=== PATIENT | female | born 2000 | race Caucasian/White ===

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

== ENCOUNTER 2021-03-22 15:22 | Emergency (ER) | payer OTHER ==
[~2021-03-22 15:22] MED LIST changes: +ACET500T15 PO; -ACET50TAOT PO; +TOBR0.3S OP
[2021-03-22] MEDS ORDERED: ZOLO100T (15:35)
[2021-03-22] MEDS ORDERED: IBUP80TA (15:35)
[2021-03-22] MEDS ORDERED: DOCU100C16 (15:35)
[2021-03-22 18:46] LABS: BASO % 0.2 % (0.0-1.0); EOS # 0.1 10^3/uL (0.0-0.5); EOS % 0.6 % (0.0-3.0); HEMOGLOBIN 11.3 g/dl (12.0-15.5); LYMPH # 1.6 10^3/uL (1.5-5.0); LYMPH % 12.8 % (24.0-44.0); MEAN CORPUSCULAR HEMOGLOBIN 25.4 pg (27.0-33.0); MEAN CORPUSCULAR HGB CONC 31.4 g/dl (32.0-36.5); MEAN CORPUSCULAR VOLUME 80.9 fl (80.0-96.0); MONO # 0.6 10^3/uL (0.0-0.8); MONO % 4.9 % (2.0-8.0); NEUTROPHILS # 9.8 10^3/uL (1.5-8.5); NEUTROPHILS % 80.3 % (36.0-66.0); PLATELET COUNT, AUTOMATED 300 10^3/uL (150-450); RED BLOOD COUNT 4.45 10^6/uL (4.00-5.40); WHITE BLOOD COUNT 12.2 10^3/uL (4.0-10.0)
[2021-03-22 19:17] LABS: ALBUMIN 2.7 GM/DL (3.2-5.2); ALT/SGPT 16 U/L (12-78); BILIRUBIN,DIRECT < 0.1 MG/DL (0.0-0.2); BILIRUBIN,TOTAL 0.2 MG/DL (0.2-1.0); BLOOD UREA NITROGEN 6 MG/DL (7-18); CALCIUM LEVEL 8.9 MG/DL (8.5-10.1); CARBON DIOXIDE LEVEL 22 MEQ/L (21-32); CHLORIDE LEVEL 109 MEQ/L (98-107); CREATININE FOR GFR 0.53 MG/DL (0.55-1.30); GLOMERULAR FILTRATION RATE > 60.0 (>60); GLUCOSE, FASTING 93 MG/DL (70-100); POTASSIUM SERUM 4.1 MEQ/L (3.5-5.1); SODIUM LEVEL 140 MEQ/L (136-145); TOTAL PROTEIN 6.5 GM/DL (6.4-8.2)
[2021-03-22] MEDS ORDERED: NS 1,000 ML IV ONE (20:40)
[2021-03-22 21:40] LABS: CK-MB VALUE MASS < 1.0 NG/ML (<3.6); CPK CREATINE PHOSPHOKINASE 134 U/L (26-192); FREE T4 0.88 NG/DL (0.76-1.46); LIPASE 95 U/L (73-393); MB/CK RELATIVE INDEX 0.75 (< OR =4); TROPONIN I < 0.02 NG/ML (< 0.10)
--- NOTE | 2021-03-22 22:17 | REPVR ---
PROCEDURE INFORMATION: Exam: XR Chest Exam date and time: 03/22/21 (8:48pm) Age: 20 years old Clinical indication: Chest pain TECHNIQUE: Imaging protocol: Portable CXR Views: 1 view COMPARISON: Chest films of 08/26/17 FINDINGS: Lungs: Unremarkable. No consolidation. Pleural spaces: Unremarkable. No pleural effusions. No pneumothorax. Heart/Mediastinum: Unremarkable. No cardiomegaly. Bones/joints: Unremarkable. IMPRESSION: No acute findings. Lung smith remain clear. Electronically signed by: Latanya Ornelas On 03/22/2021 22:17:31 PM
[2021-03-22 23:37] VITALS: BP 112/61
--- NOTE | 2021-03-23 17:44 | ECGEPIP ---
[facility] - ED Test Date: 2021-03-22 Pat Name: GEORGIANA PICKARD Department: Room: - Gender: Female Chief Underwriter: vicky : 2000 Requested By: JAMES GARCÍA Order Number: [id number] Reading MD: Haile Rodríguez Measurements Intervals [place] Rate: 71 P: 28 VT: 130 QRS: 72 QRSD: 64 T: 32 QT: 396 QTc: 430 Interpretive Statements Normal sinus rhythm POOR R WAVE PROGRESSION SIMILAR TO 02/25/16 Electronically Signed on 03-23-2021 17:44:12 EDT by Haile Rodríguez
== END 2021-03-22 23:40 | disposition home or self-care (01) ==
LOC: M ED 15:22
DX: R69 Illness, unspecified (principal); O99.345 Other mental disorders complicating the puerperium; Z88.6 Allergy status to analgesic agent

== ENCOUNTER 2021-04-29 16:20 | Emergency (ER) | payer OTHER ==
[~2021-04-29] VITALS: Ht 167.6 cm; Wt 58.2 kg
[~2021-04-29 16:20] MED LIST changes: +DOCU100C16; +IBUP80TA; +ZOLO100T
[2021-04-29] MEDS ORDERED: VANC250C3 PO (16:30)
[2021-04-29] MEDS ORDERED: VIST25CA PO (16:30)
--- OUTSIDE RECORDS SUMMARY | 2021-04-29 16:33 | CCD ---
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 Name Role Phone Anderson GILL, Maya Duke PP [phone] Kimberly White DPM Unavailable Unavailable Reason for Referral No Reason for Referral Recorded Problems Includes: Active, inactive, and resolved Problems All Visits Onset Date - Time Resolved Date - Time Provider Co ndition Status Chest Pain 01/09/2021 - 10:00AM Maya Barron MD Active Generalized Anxiety Disorder 01/09/2021 - 10:00AM Laisha Barron MD Active History of Psychiatric Disorders 08/09/2020 - 12:00AM Cat Gutierrez RPA Active Note: Anxiety, panic attacks 06/23/2020 - 12:00AM Cat Gutierrez RPA Active Fracture of Fifth Cervical Vertebral Body 03/04/2018 - 12:00AM Cat Gutierrez RPA Active Note: Unchanged Reactive Airway Disease 03/04/2018 - 12:00AM Cat kimbrough RPA Active Plan of Treatment Pending Tests Order Diagnosis Results Due Ordering Provi yaima Outside Labs STC/C.Diff/O+P/Viral PCR G14 Diarrhea, unspecified 03/03 Maya Barron MD Future Appointments Date Time Location Provider Post Visit 05/01/2021 11:45AM [facility] ricky Beth Barron MD Findings Encounter Date Follow-up visit date 03/28/2021 Georgiana is aware she has an appointment with Dr. Barron at 2:45pm [facility] phone call- NO CHARGE with Maya Barron MD 2021 Transitional care management services with high comple xity decision making [facility] phone call- NO CHARGE with Maya Barron MD 2021 Community resources No referrals needed at this time [facility] - Office Visit with Maya Barron MD 10/17/2020 Follow-up visit date 10/17/2020 PCP adonis hussein and CCM visit (Dr. Barron and Esther Howell,RN) [facility] - Office Visit with Maya Barron MD 10/17/2020 Ordered a urine culture sick visit with Maya Barron MD 02/25/2020 Referred elsewhere for physical therapy service follow up with Maya Barron MD 02/01/2020 Tylenol for discomfort or fever. Push fluids and rest. Saline nasal spray to thin secretions and encourage drainage. Call if persistent or high fever, increased work of breathing, persistent pain, if sxs not improving, or if concerned urgent visit with Linda Smith RPA 08/07/2019 Referred elsewhere for physical therapy service ANNUAL PE-followup with Maya Barron MD 04/07/2019 Discussed treatment plan with the marifer ent. Exam findings consistent with muscle strain, no cardiovascular component, risk factors or concerning exam findings. Recommended moist heat, limiting aggravating activities and to monitor for now. See back with any worsening or persistent symptoms, questions or concerns sick visit with Cat Gutierrez RPA 10/30/2018 Assessments Includes: Assessments for all patient encounters Findings Encounter Date Gastroenteritis advised rest, PO hydrat ion, BRAT diet [Infectious gastroenteritis and colitis, unspecified] Telehealth communication with Maya Barron MD 04/13/2021 Generalized anxiety disorder counseling provided today. Will switch from sertraline to venlafaxine. Follow-up in 2 weeks. Phone conversation length: 8 minutes [Generalized anxiety disorder] Telehealth communication with Maya Barron MD 04/13/2021 Benign pituitary neoplasm incidentally found on brain MRI, 7mm. Will discuss with patient at next visit in 2 weeks [Benign neoplasm of pituitary gland] Transitional Care Management HIGH complexity with Maya Barron MD 03/28/2021 Maternal mental disorder complicating pr egnancy, childbirth,and puerperium which is improving some improvement on sertraline 50mg daily and with mother's support at home. >50% of encounter spent counseling today [Other mental disorders complicating the puerperium] Transitional Care Management HIGH complexity with Maya Barron MD 03/28/2021 Chest pain [facility] phone call- NO CHARGE with Maya Barron MD 2021 Fracture of fifth cervical vertebral body [facility] phone call- NO CHARGE with Maya Barron MD 2021 Generalized anxiety disorder [facility] phone call- NO RICKEY GE with Maya Barron MD 2021 History of psychiatric disorders [facility] phone call- NO CHARGE with Maya Barron MD 2021 Reactive airway disease [facility] phone call- NO CHARGE with Alicja Barron MD 2021 Chest pain patient has had multiple ER visits for this, no current symptoms, will continue to monitor [Chest pain, unspecified] Telehealth communication with Maya Barron MD 01/09/2021 Generalized anxiety disorder which is st able with panic attacks, continue sertraline, wellbutrin, hydroxyzine prn. Counseling provided today. Frequent ER visits. Has not followed through with [facility] or counseling [Generalized anxiety disorder] Telehealth communication with Maya Barron MD 12/13 Iron deficiency anemia which is stable on ferrous sulfate [Iron deficiency anemia, unspecified] Telehealth communication with Maya Barron MD 01/09/2021 Upper respiratory infection Advised res t, PO hydration, tylenol prn pain, cough drops to sooth burning with cough. Reassurance provided [Acute upper respiratory infection, unspecified] Telehealth communication with Myaa Barron MD 01/09/2021 Atypical chest pain Pt called 12/22/20 a t 11:15 pm for exascerbation of left shoulder, chest and scapular pain which has been a chronic issue for her with extensive work up and evaluation. She report worsening pain after intercourse earlier in the evening. Has been evaluated in the ER for syncope recently and has an appt this coming week in the office. No nausea,palpitions, or dyspnea. Feels fatigue about at baseline and continues to have SBP in the 90s. Will observe for now and she will seek medical attention for worseing sxs. She reports stress levels at baseline telephone conversation with Michel Villalba MD 12/25/2020 Fracture of fifth cervical vertebral body telephone co nversation with Maya Barron MD 12/19/2020 History of psychiatric disorders telephone conversatio n with Maya Barron MD 12/19/2020 Hypotension Called this evening to repo rt low BPs at home the last few days. Feels tired and SOB as she has in the past with no real changes. Was in ER yesterday with SBP 89. Today she has gotten a BP of 75 systolically. No severe CV pulmonary sxs. She will drink 3 glasses of water yet tonight and come in for a BP check tomorrow AM and she is to bring in her own cuff as well to correlate with ours telephone conversation with Michel Villalba MD 12/19/2020 Reactive airway disease telephone conversation with Maya Barron MD 12/19/2020 Tension-type headache , she tried tyleno l last night without relief. She has tired heat/ice on neck without relief. She is and is limited in what she can take. Refer to PT for evaluation/treatment of headaches. Stop amoxicillin, no signs/symptoms of sinusitis Problem visit - not contagious with Bandar Cleveland PA-C 12/14/2020 Fracture of fifth cervical vertebral body [facility] - Office Visit with Maya Barron MD 11/21/2020 History of psychiatric disorders [facility] - Of fice Visit with Maya Barron MD 11/21/2020 Reactive airway disease [facility] - Office Vi sit with Maya Barron MD 11/21/2020 Chest pain s/p echo, holter monitor, mu ltiple EKG's. Did not tolerate labetalol for rate control due to hypotension. No improvement in symptoms with hydroxyzine prn. Reports family history of "clogged arteries" and her dad has expressed concern multiple times that she needs to make sure her arteries aren't clogged. Reassurance provided today. Counseling provided today [Chest pain, unspecified] OB- ILL VISIT with Maya Barron MD 11/03/2020 Generalized anxiety disorder >50% of en counter spent counseling today. Due to concern that sertraline may be contributing to tachycardic episodes, will start working on titrating off of sertraline. Consider wellbutrin. Continue hydrozyzine prn panic attacks. Strongly encouraged keeping therapy appointment with Carlita Prakash. Follow-up next week [Generalized anxiety disorder] OB- ILL VISIT with Maya Barron MD 11/03/2020 Panic disorder [Panic disorder [episodic paroxysmal an xiety]] OB- ILL VISIT with Maya Barron MD 11/03/2020 [ state, incidental] OB- ILL VISIT with Trinity Barron MD 11/03/2020 Fracture of fifth cervical vertebral body [facility] - Office Visit with Maya Barron MD 10/31/2020 History of psychiatric disorders [facility] - Of fice Visit with Maya Barron MD 10/31/2020 Reactive airway disease [facility] - Office Vi sit with Maya Barron MD 10/31/2020 Fracture of fifth cervical vertebral body [facility] - Office Visit with Maya Barron MD 10/17/2020 History of psychiatric disorders [facility] - Of fice Visit with Maya Barron MD 10/17/2020 Reactive airway disease [facility] - Office Vi sit with Maya Barron MD 10/17/2020 Dyspnea [Shortness of breath] OB- ILL VISIT with Maya Moreno MD 10/04/2020 Palpitations OB- ILL VISIT with Maya Barron MD 0 10/04/2020 Presyncope syndrome Multiple ER visi ts for pre-sncope asssociated with persistent tachycardia. Sinus tachycardia on multiple EKG's and during telemetry monitoring in ER. Will evaluate further with CXR, Echo, Holter monitor. Refer to cardiology. Patient advised to rest, hydrate, and wear compression stockings. Advised staying out of work until further notice [Syncope and collapse] OB- ILL VISIT with Maya Barron MD 10/04/2020 Tachycardia [Tachycardia, unspecified] OB- ILL VISIT with Trinity Barron MD 10/04/2020 Weeks of gestation - 14 [14 weeks gestation of pregnan cy] OB- ILL VISIT with Maya Barron MD 10/04/2020 Atypical chest pain likely musculoskeletal and worsen ed by anxiety telephone conversation with Michel Villalba MD 09/22/2020 Acute upper respiratory infection Rapid strep negative. Strep culture and COVID testing performed today [Acute upper respiratory infection, unspecified] sick visit with Maya Barron MD 08/15/2020 Pollakiuria Will obtain UA and treat as indicated [Fr equency of micturition] sick visit with Maya Barron MD 08/15/2020 Abdominal pain followup with Cat Gutierrez RPA 2020 Early stage of followup with Cat Gutierrez RPA 0 08/02/2020 Generalized anxiety disorder followup with Cat FUNEZ 08/02/2020 Generalized anxiety disorder >50% of en counter spent counseling today. Reassurance provided today. Will refer to psychology for counseling and PT for pelvic pain. Obtain repeat BHcg. Continue weekly follow-up [Generalized anxiety disorder] followup with Maya Barron MD 07/26/2020 [ state, incidental] followup with Maya Barron MD 07/26/2020 Pyrexia , Normal CBC and urine at the ER on 07/22, has tested negative twice for covid (including today). Fever has been every other day x 4 days with this morning being 100.8. She is well appearing today in the office and has mild groin discomfort on left. Patient is anxious about losing her current pregancy. Recommend follow up visit with possible lab work with Dr. Barron. Unable to recheck CBC in office today as lab is closed, will have her return tomorrow for further evaluation and counseling to alleviate her concerns sick visit with Bandar Cleveland PA-C 07/25/2020 Generalized anxiety disorder >50% of en counter spent counseling today. Discussed referral for therapy and initiation of SSRI therapy due to severe anxiety, however she declines at this time. She is agreeable to weekly counseling visits here in the office. counseling provided today as well [Generalized anxiety disorder] followup with Maya Barron MD 07/19/2020 Pollakiuria will evaluate further with UA [Frequency of micturition] followup with Maya Barron MD 07/19/2020 [ state, incidental] followup with Maya Barron MD 07/19/2020 Adjustment disorder Counseling and reas surance provided today. Advised reaching out to clinical social worker for assistance with access to food and necessities [Adjustment disorder with anxiety] followup with Maya Barron MD 07/11/2020 Atypical chest pain ER records reviewed today, likely musculoskeletal s/p fall [Chest pain, unspecified] followup with Maya Barron MD 07/11/2020 Missed s/p D&C, recovering wel l, still some pelvic/lower abdominal pain. Advise ibuprofen TID and colace BID. Call or RTC if symptoms worsen or do not improve [Missed ] followup with Maya Barron MD 06/07/2020 with threatened Last Hcg in the appropriate range, repeat pending today. Counseling and education provided regarding threatened , symptoms to expect with miscarriage and indications to go to ED. Will follow-up in 3-4 days. Obtain repeat US prior to follow-up [Threatened ] followup with Maya Barron MD 05/26/2020 with threatened Hcg pending today. US reviewed from yesterday shows 5-2/7 week gestation, no pole identified. Counseling and education provided threatened , symptoms to expect with miscarriage. Will follow-up in 2 days with HCG prior Problem visit - not contagious with Maya Barron MD 05/24/2020 Hcg and US reviewed with marifer ent today. Reassurance provided that this is very likely a very early . counseling provided today. Will have patient follow-up in 6 weeks for initial OB visit with US and labs prior [ state, incidental] followup with Maya Barron MD 04/19/2020 Dysmenorrhea Obtain labs as below. Pelv ic US reviewed from February, wn. RTC in 3 months for follow-up [Dysmenorrhea, unspecified] ANNUAL PE-followup exam/ with Maya Barron MD 04/10/2020 Routine adult history and physical (18 - 64 yrs) CONNIE CLEANER care with women's health, [facility] on health maintenance. Patient now 20 and due for a Pap [Encounter for general adult medical examination with abnormal findings] ANNUAL PE-followup exam/30 with Maya Barron MD 04/10/2020 Sinusitis [Acute frontal sinusitis, unspecified] sick visit with Maya Barron MD 03/06/2020 Female pelvic pain obtain pelvic US. UA negative in office today. Advised tylenol/ibuprofen prn pain. Urine hcg negative today [Pelvic and perineal pain] sick visit with Maya Barron MD 02/25/2020 Pollakiuria urine sent for culture and gc/chlamydia [ Frequency of micturition] sick visit with Maya Barron MD 02/25/2020 Back strain Advised rest, ibuprofen prn pain (has tolerated this in the past without rash), cyclobenzaprine for muscle spasm. Will obtain spine x-rays. Refer to PT. Follow-up in 6 weeks, [Strain of muscle, fascia and tendon of lower back, initial encounter] followup with Maya Barron MD 02/01/2020 Amenorrhea urine hcg in office negative . Will continue to monitor [Amenorrhea, unspecified] followup with Maya Barron MD 12/27/2019 Clostridium difficile Resolved s/p vanc omycin [Enterocolitis due to Clostridium difficile, not specified as recurrent] followup with Maya Barron MD 12/27/2019 Abdominal pain which is worsening Hun akhil suspicion for acute appendicitis, patient sent to ED for further evaluation and treatment [Right upper quadrant pain] sick visit with Maya Barron MD 12/07/2019 Abdominal pain which is worsening Will evaluate further with US. UA negative [Right upper quadrant pain] sick visit with Maya Barron MD 11/22/2019 Esophageal reflux which is inadequately controlled slight improvement in symptoms with pantoprazole, continue to complete 6 week course. Discussed warning signs/symptoms to watch for. Follow-up in 1 month [Gastro-esophageal reflux disease without esophagitis] sick visit with Maya Barron MD 11/22/2019 Generalized anxiety disorder which is in adequately controlled did not tolerate wellbutrin. Will defer further medication management until GI symptoms resolve sick visit with Maya Barron MD 11/22/2019 Fatigue [Other fatigue] sick visit with Maya Barron MD 11/15/2019 Generalized anxiety disorder ddx inc ludes , thyroid dysfunction, anemia, hypoglycemia, anxiety. Will evaluate further with labs as below [Generalized anxiety disorder] sick visit with Maya Barron MD 11/15/2019 Nausea sick visit with Maya Barron MD 10/2019 Presyncope syndrome [Syncope and collapse] sick visit with Kesha Barron MD 11/15/2019 Atopic dermatitis sick visit with Cat Gutierrez RPA 10/13 Benign pigmented nevus sick visit with Cat Gutierrez RPA 0 08/31/2019 Female pelvic pain sick visit with Cat [facility] 08/14 Pharyngitis urgent visit with Linda Smith [facility] 08/07 Nail disorders in diseases classifed els ewhere Rapidly progressing nail disorder that appears to be fungal but is concerning due to progression of symptoms over a week without any underlying clinical issues otherwise. Will refer to podiatry for further evaluation and treatment [Nail disorders in diseases classified elsewhere] sick visit with Maya Barron MD 07/20/2019 Lumbago Will try meloxicam for symptom relief and ref er to PT [Low back pain] ANNUAL PE-followup exam/ with Maya Barron MD 04/07/2019 Routine adult history and physical (18 - 64 yrs) CONNIE CLEANER care with women's [facility], [facility] on health maintenance [Encounter for general adult medical examination with abnormal findings] ANNUAL PE-followup exam with Maya Barron MD 04/07/2019 Vaginal candidiasis sick visit with [facility] 02/11 Pharyngitis urgent visit with Bandar Cleveland PA-C 2018 Sprained ribs ; left sick visit with [facility] Strain of muscle and tendon of front wall of thorax si ck visit with [facility] 10/30/2018 Fracture of fifth cervical vertebral body No Fault with [facility]ie [facility] 03/04/2018 Late effects of accident No Fault with [facility] 0 03/04/2018 Instructions Instructions not supported for this document typeNo Instructions Recorded Medical Equipment - Implanted Devices Includes: Current and historical DevicesNo Medical Equipment Recorded Medications Includes: Current and historical Medications Current Medications (continue as prescribed) Venlafaxine HCl ER 75 MG Oral Capsule Extended Release 24 Ho ur 04/13/2021 Provider: Maya Barron MD Diagnosis: 1 PO QD hydrOXYzine HCl 25 MG Oral Tablet 03/06/2021 Provid er: Maya Barron MD Diagnosis: 1 every 4 - 6 hours as needed for anxiety Lidocaine 5% External Patch 12/07/2020 Provider: Maya Barron MD Diagnosis: Neuralgia and neurit is, unspecified as directed apply up to three patches da cailin on 12hrs, off 12hrs to affected area on chest Ferrous Sulfate 325 (65 Fe) MG Oral Tablet 11/20/2020 Provider: Maya Barron MD Diagnosis: 1 PO BID HM Vitamin D3 50 MCG (2000 UT) Oral Capsule 11/20/2020 Provider: Maya Barron MD Diagnosis: 1 PO QD Colace 100 MG Oral Capsule 06/07/2020 Provider: Maya Barron MD Diagnosis: 1 PO BID Ventolin HFA 108 (90 Base)MCG/ACT Inhalation Aerosol Solutio n 03/04/2018 Provider: Diagnosis: /Folic Acid Oral Tablet 03/04/2018 Provider : Diagnosis: Past Medications on file Nitrofurantoin Monohyd Macro 100 MG Oral Capsule 12/14/2020 - 01/09/2021 Provider: Diagnosis: metroNIDAZOLE 0.75% Vaginal Gel 12/01/2020 - 12/06/2020 Prov ider: Maya Barron MD Diagnosis: as directed One applicatorful (~37.5 mg metronidazole) intravaginally once daily for 5 days. Lidocaine 5% External Patch 12/01/2020 - 12/05/2020 Provider : Maya Barron MD Diagnosis: Chest pain, unspecif ied as directed apply up to three patches da cailin on 12hrs, off 12hrs to affected area on chest Wellbutrin XL 150 MG Oral Tablet Extended Release 24 H our 11/21/2020 - 2021 Provider: Maya Barron MD Diagnosis: 1 PO QD Sertraline HCl 100 MG Oral Tablet 10/24/2020 - 04/13/2021 Pr ovider: Maya Barron MD Diagnosis: 1 PO QD hydrOXYzine HCl 25 MG Oral Tablet 10/24/2020 - 03/06/2021 Pr ovider: Maya Barron MD Diagnosis: 1 every 4 - 6 hours as needed for anxiety Ventolin HFA 108 (90 Base) MCG/ACT Inhalation Aerosol Solution 09/05/2020 - 11/04/2020 Provider: Cat Gutierrez RPA Diagnosis: Other asthma- reacti ve airway disease 2 puffs q4hr prn Monistat 7 Combo Pack Chava 100 & 2 MG-% (9GM) Vaginal K it 08/31/2020 - 09/07/2020 Provider: Cat Gutierrez RPA Diagnosis: as directed - Insert 1 applicatorful vaginally at bedtime x 7 days Sertraline HCl 50 MG Oral Tablet 08/22/2020 - 10/24/2020 Pro vider: Maya Barron MD Diagnosis: 1 PO QD Clindamycin Phosphate 2% Vaginal Cream 08/14/2020 - 08/21/19 Provider: Maya Barron MD Diagnosis: as directed One full applicator inserted intravaginally once daily before bedtime for 7 consecutive days metroNIDAZOLE 500 MG Oral Tablet 08/10/2020 - 08/17/2020 Pro vider: Cat Gutierrez RPA Diagnosis: 1 PO BID Sertraline HCl 50 MG Oral Tablet 08/02/2020 - 08/22/2020 Pro vider: Cat Gutierrez RPA Diagnosis: as directed - Take 1/2 tab PO daily x 1 week, then 1 t ab PO daily thereafter. Ibuprofen 800 MG Oral Tablet 06/07/2020 - 06/17/2020 Provide r: Maya Barron MD Diagnosis: 1 PO TID Amoxicillin-Pot Clavulanate 875-125 MG Oral Tablet 0 - 03/13/2020 Provider: Maya Barron MD Diagnosis: 1 PO BID Cyclobenzaprine HCl 5 MG Oral Tablet 02/01/2020 - 02/21/2020 Provider: Maya Barron MD Diagnosis: 1 PO TID prn Pantoprazole Sodium 40 MG Oral Tablet Delayed Release 2019 - 01/28/2020 Provider: Maya Barron MD Diagnosis: 1 PO QD Vancomycin HCl 125 MG Oral Capsule 12/13/2019 - 12/13/2019 P rovider: Maya Barron MD Diagnosis: 1 PO QID Vancocin HCl 125 MG Oral Capsule 12/13/2019 - 12/13/2019 Pro vider: Maya Barron MD Diagnosis: 1 PO QID Firvanq 50 MG/ML Oral Solution Reconstituted 12/13/2019 - Provider: Maya Barron MD Diagnosis: as directed 2.5ml (125mg) QID Pantoprazole Sodium 40 MG Oral Tablet Delayed Release 2019 - 12/14/2019 Provider: Maya Barron MD Diagnosis: 1 PO QD Wellbutrin SR 150 MG Oral Tablet Extended Release 12 H our 11/16/2019 - 11/22/2019 Provider: Maya Barron MD Diagnosis: as directed 1 PO daily x 3 days, then increase to 1 PO BID Triamcinolone Acetonide 0.5% External Cream 11/05/2019 - 10/2019 Provider: Cat Gutierrez RPA Diagnosis: apply bid to affected area Meloxicam 7.5MG Oral Tablet 04/07/2019 - 11/15/2019 Provider : Maya Barron MD Diagnosis: 1 PO QD Sprintec 28 0.25-35MG-MCG Oral Tablet 04/01/2019 - 0 Provider: Diagnosis: Diflucan 150MG Oral Tablet 02/26/2019 - 02/28/2019 Provider: Cat Gutierrez RPA Diagnosis: 1 PO QD Medications Administered Includes: Administered Medications in patient's chartNo Administered Medications Recorded Vital Signs Includes: Vital Signs from 04/13/2020 through 04/13/2021 Vital Name 03/28/2021 02:49P 03/13/2021 10:02A 03/07/2021 10:12A 02/27/2021 10:07A 02/23/2021 02:35P Blood Pressure Sitting (mmHg) 118/80 102/60 Pulse Rate-Sitting (bpm) 92 84 79 92 Respiration Rate (breaths/min) 20 20 18 20 Blood Pressure Sitting L 110/70 114/70 100/54 BP Cuff Size Regular Regular Regular Weight (lb) 147 140 142 139 Vital Name 01/16/2021 10:00A 12/26/2020 09:58A 12/14/2020 02:15P 12/05/2020 11:47A 11/28/2020 01:44P Blood Pressure Sitting (mmHg) 102/64 102/50 Pulse Rate-Sitting (bpm) 95 88 98 80 88 Respiration Rate (breaths/min) 18 20 20 20 20 Blood Pressure Sitting L 98/62 100/62 BP Cuff Size Regular Regular Regular Weight (lb) 133 130 126.6 126 123 Oxygen Saturation (%) 98 Blood Pressure Sitting R 92/60 Vital Name 11/21/2020 11:41A 11/14/2020 10:01A 11/07/2020 11:52A 11/03/2020 04:01P 10/31/2020 10:02A Pulse Rate-Sitting (bpm) 76 72 80 80 88 Respiration Rate (breaths/min) 20 20 20 20 20 Blood Pressure Sitting L 100/60 92/54 100/62 100/60 BP Cuff Size Regular Regular Regular Regular Regular Weight (lb) 122 121 121 117 120 Blood Pressure Sitting R 100/60 Vital Name 10/24/2020 10:12A 10/17/2020 11:34A 10/11/2020 09:56A 10/04/2020 02:18P 09/27/2020 01:44P Pulse Rate-Sitting (bpm) 80 80 76 116 76 Respiration Rate (breaths/min) 20 20 20 24 20 Blood Pressure Sitting L 100/60 110/56 110/60 98/62 BP Cuff Size Regular Regular Regular Regular Regular Weight (lb) 120 118 120 118 120 Blood Pressure Sitting R 100/60 Vital Name 09/19/2020 09:58A 09/11/2020 03:39P 09/05/2020 09:48A 08/22/2020 02:14P 08/15/2020 09:54A Blood Pressure Sitting (mmHg) 104/60 110/68 112/60 100/72 Pulse Rate-Sitting (bpm) 76 78 72 Respiration Rate (breaths/min) 20 18 Blood Pressure Sitting L 100/60 BP Cuff Size Regular Weight (lb) 119 118 119 121 Temp-Tympanic (F) 97.3 Vital Name 08/09/2020 09:27A 08/02/2020 10:58A 07/26/2020 10:46A 07/25/2020 04:09P 07/19/2020 11:05A Blood Pressure Sitting (mmHg) 90/50 98/60 118/76 116/80 Pulse Rate-Sitting (bpm) 72 64 86 80 114 Respiration Rate (breaths/min) 20 20 18 20 18 Blood Pressure Sitting L 102/62 BP Cuff Size Regular Weight (lb) 121 123 124 126 121.6 Oxygen Saturation (%) 98 98 Temp-Tympanic (F) 98.2 Height (in) 65 65 65 Body Mass Index (kg/m2) 20.1 20.6 2 0.2 Body Surface Area (m2) 1.60 1.61 1. 60 Temp-Oral (F) 98.5 98.2 Vital Name 07/11/2020 10:56A 06/07/2020 10:51A 05/26/2020 01:50P 05/24/2020 12:01P 04/19/2020 11:58A Blood Pressure Sitting (mmHg) 120/80 124/80 118/72 110/72 108/60 Pulse Rate-Sitting (bpm) 78 72 86 87 Respiration Rate (breaths/min) 20 20 20 Weight (lb) 125 119 118.2 117.8 116 Oxygen Saturation (%) 98 Height (in) 65 64 Body Mass Index (kg/m2) 20.8 20.4 Body Surface Area (m2) 1.62 1.57 Temp-Oral (F) 98.5 Results Includes: Results from 04/13/2020 through 04/13/2021 LIPASE [facility] Ordered by Maya Barron MD on 04/12/2021 Collected: 04/12/2021 Reported: 04/12/2021 01:03 Lipase SerPl-cCnc 74 enzyme_unit_per_liter (73-393) N (Normal) Note: Responsible Observer: Lipase Lipas e 400.2310 (G) Reviewed by Maya Barron MD on 04/13; All test results are final unless otherwise noted. Reported Physicians [facility] Ordered by Maya Barron MD on 04/12/2021 Collected: 04/12/2021 Reported: 04/12/2021 01:03 Reported Physicians See Note None Note: Reported Physicians:Ordering: Conchis Omerending: Kevin Orozco To: Maya Barron Reviewed by Maya Barron MD on 04/13; All test results are final unless otherwise noted. TROPONIN [facility] Ordered by Maya Barron MD on 04/12/2021 Collected: 04/12/2021 Reported: 04/12/2021 01:03 Troponin I SerPl-mCnc Less Than 0.015 (0.00-0.09) N (Normal) Note: Less than 0.09 NG/ML Negative 0.10 - 0.77 NG/ML High Risk0.78 NG/ML or Greater PositiveThe WHO defined the cutoff (definition for diagnosis of CO)for this method as 0.78 ng/ml.Responsible Observer: Troponin I Troponin I 600.1101 (G) Reviewed by Maya Barron MD on 04/13; All test results are final unless otherwise noted. Reported Physicians [facility] Ordered by Maya Barron MD on 04/12/2021 Collected: 04/12/2021 Reported: 04/12/2021 01:03 Reported Physicians See Note None Note: Reported Physicians:Ordering: Conchis Omerending: Kevin Orozco To: Maya Barron Reviewed by Maya Barron MD on 04/13; All test results are final unless otherwise noted. MAGNESIUM [facility] Ordered by Maya Barron MD on 04/12/2021 Collected: 04/12/2021 Reported: 04/12/2021 01:03 Magnesium SerPl-mCnc 2.2 MilliGramsPerDeciLiter_[Mass_Concentration_Units] (1.3-2.7) N (Normal) Note: Responsible Observer: Magnesium Ma gnesium 400.3300 (G) Reviewed by Maya Barron MD on 04/13; All test results are final unless otherwise noted. Reported Physicians [facility] Ordered by Maya Barron MD on 04/12/2021 Collected: 04/12/2021 Reported: 04/12/2021 01:03 Reported Physicians See Note None Note: Reported Physicians:Ordering: Conchis Omerending: Kevin Orozco To: Maya Barron Reviewed by Maya Barron MD on 04/13; All test results are final unless otherwise noted. CBC W AUTO DIFF [facility] Ordered by Maya Barron MD on 04/12/2021 Collected: 04/12/2021 Reported: 04/12/2021 00:40 MCV BldCo Auto 82 FemtoLiter_[SI_Volume_Units] (80-96) N (Normal) Note: Responsible Observer: MCV MCV 100 .0600 (B) RDW RBC Auto 16 percent (11-15) H (High) Note: Responsible Observer: RDW RDW 100 .0900 (B) Manual diff Bld NO None Note: Responsible Observer: CBC Manual D ifferential Added 100.1990 (B) PMV Bld 9.6 FemtoLiter_[SI_Volume_Units] (9.1-13.1) N (Normal) Note: Responsible Observer: MPV MPV 100 .1100 (B) Imm Granulocytes Bld Ql Auto See Note (0-2) N (Normal) Note: [id number] Ob server support technician: IG% IG% 100.1375 (B) Hct VFr Bld Auto 42.5 percent (37-47) N (Normal) Note: Responsible Observer: HEMATOCRIT H EMATOCRIT 100.0500 (B) MCHC BldCo-mCnc 32 GramsPerDeciLiter_[Mass_Concentration_Units] (33-37) L (Low) Note: Responsible Observer: MCHC MCHC 1 00.0800 (B) Imm Granulocytes # Bld Auto 0.0 Unit (0-0.1) None Note: Responsible Observer: IG# IG# 100 .1400 (B) Monocytes/leuk NFr Bld Auto 6.8 percent (4-12) N (Normal) Note: Responsible Observer: MONO % MONO % 100.1225 (B) Hgb Bld-sCnc 13.4 GramsPerDeciLiter_[Mass_Concentration_Units] (10.7-15.4) N (Normal) Note: Responsible Observer: HGB HEMOGLOB IN 100.0400 (B) WBC # Bld Auto 5.6 ThousandsPerMicroLiter_[Number_Concentration_Units] (4.45-10 .71) N (Normal) Note: Responsible Observer: WBC WHITE BL OOD COUNT 100.0100 (E) Basophils # Bld Auto 0.0 Unit (0.0-0.2) N (Normal) Note: Responsible Observer: BASO # BASO# 100.1350 (B) Basophils/leuk NFr Bld Auto 0.4 percent (0.4-1.3) N (Normal) Note: Responsible Observer: BASO % BASO % 100.1325 (B) Eosinophil # Bld Auto 0.1 Unit (0.0-0.5) N (Normal) Note: Responsible Observer: EOS # EOS# 100.1300 (D) Eosinophil/leuk NFr Bld Auto 1.3 percent (0-7) N (Normal) Note: Responsible Observer: EOS % EOS % 100.1275 (B) Lymphocytes # Bld Auto 2.5 Unit (0.6-4.6) N (Normal) Note: Responsible Observer: LYMPH # LYMP H# 100.1200 (B) Lymphocytes/leuk NFr Bld Auto 45.3 percent (14-46) N (Normal) Note: Responsible Observer: LYMPH % LYMP H % 100.1175 (B) Monocytes # Bld Auto 0.4 Unit (0.2-1.2) N (Normal) Note: Responsible Observer: MONO # MONO# 100.1250 (C) Neutrophils # Bld Auto 2.6 Unit (1.7-7.6) N (Normal) Note: Responsible Observer: NEUT# NEUT# 100.1150 (B) Neutrophils/leuk NFr Bld Auto 46.2 percent (41-77) N (Normal) Note: Responsible Observer: NEUT% NEUT% 100.1125 (B) Platelet # Bld Auto 323 ThousandsPerMicroLiter_[Number_Concentration_Units] (130-472 ) N (Normal) Note: Responsible Observer: PLATELET COU NT PLATELET COUNT 100.1000 (D) MCH RBC Qn Auto 26 PicoGram_[SI_Mass_Units] (27-31) L (Low) Note: Responsible Observer: MCH MCH 100 .0700 (B) RBC # Bld Auto 5.20 MillionsPerMicroLiter_[Number_Concentration_Units] (4.20-5.4 0) N (Normal) Note: Responsible Observer: RBC Red Bloo d Count 100.0300 (B) NUCLEATED RED BLOOD CELL# 0 Unit None Note: Responsible Observer: NRBC# NUCLEA VICTOR M RBC 100.1362 (A) NUCLEATED RED BLOOD CELL 0 percent None Note: Responsible Observer: NRBC% NRBC% 100.1360 (B) Reviewed by Maya Barron MD on 04/13; All test results are final unless otherwise noted. [facility] Ordered by Maya Barron MD on 04/12/2021 Collected: 04/12/2021 Reported: 04/12/2021 01:03 ALT SerPl w P-5'-P-cCnc 26 enzyme_unit_per_liter (10-49) N (Normal) Note: Responsible Observer: SGPT/ALT SGP T/ALT 400.1750 (G) Calcium SerPl-mCnc 8.9 MilliGramsPerDeciLiter_[Mass_Concentration_Units] (8.5-10.1) N (Normal) Note: Responsible Observer: Calcium Calc ium 400.2500 (G) Bilirub SerPl-mCnc 0.3 MilliGramsPerDeciLiter_[Mass_Concentration_Units] (0.3-1.2) N (Normal) Note: Responsible Observer: T KELLIE Total Bilirubin 400.2600 (G) CO2 SerPl-sCnc 24 MilliMolesPerLiter_[Substance_Concentration_Units] (20-31) N (Normal) Note: Responsible Observer: CO2 Carbon D ioxide 400.1400 (G) Chloride SerPl-sCnc 109 MilliMolesPerLiter_[Substance_Concentration_Units] (99-109) N (Normal) Note: Responsible Observer: Chloride Chl oride 400.1250 (G) Glucose SerPl-mCnc 93 MilliGramsPerDeciLiter_[Mass_Concentration_Units] (74-106) N (Normal) Note: Responsible Observer: Glucose Gluc ose 400.1500 (G) Potassium SerPl-sCnc 3.5 MilliMolesPerLiter_[Substance_Concentration_Units] (3.5-5.5) N (Normal) Note: Responsible Observer: K Potassium 400.1210 (G) Prot SerPl-mCnc 7.7 GramsPerDeciLiter_[Mass_Concentration_Units] (5.7-8.2) N (Normal) Note: Responsible Observer: TP Total Pro tein 400.2800 (G) Sodium SerPl-sCnc 141 MilliMolesPerLiter_[Substance_Concentration_Units] (132-146) N (Normal) Note: Responsible Observer: Sodium Sodiu m 400.1100 (G) AST SerPl w P-5'-P-cCnc 20 enzyme_unit_per_liter (0-33) N (Normal) Note: Responsible Observer: SGOT / AST S GOT / AST 400.1900 (G) BUN SerPl-mCnc 4 MilliGramsPerDeciLiter_[Mass_Concentration_Units] (9-23) L (Low) Note: Responsible Observer: BUN Blood Ur ea Nitrogen 400.1000 (G) Anion Gap SerPl-sCnc 12 MilliMolesPerLiter_[Substance_Concentration_Units] (8-16) N (Normal) Note: Responsible Observer: ANION GAP AN ION GAP 400.1402 (E) Albumin SerPl BCP-mCnc 3.7 GramsPerDeciLiter_[Mass_Concentration_Units] (3.2-4.8) N (Normal) Note: Responsible Observer: Albumin [place] min 400.2700 (G) ALP SerPl-cCnc 156 enzyme_unit_per_liter (45-129) H (High) Note: Responsible Observer: ALP Alkaline Phosphatase 400.2000 (G) GFR/BSA.pred SerPlBld-ArVRat Greater Than 60 (ABOVE 60) None Note: Responsible Observer: GFR Glomerul ar Filt Rate Calc 400.1605 (D) Creatinine 0.8 MilliGramsPerDeciLiter_[Mass_Concentration_Units] (0.5-1.1) N (Normal) Note: Responsible Observer: Creatinine C reatinine 400.1600 (G) Reviewed by aMya Barron MD on 04/13; All test results are final unless otherwise noted. Reported Physicians [facility] Ordered by Maya Barron MD on 04/12/2021 Collected: 04/12/2021 Reported: 04/12/2021 01:03 Reported Physicians See Note None Note: Reported Physicians:Ordering: Conchis Omerending: Kevin Orozco To: Maya Barron Reviewed by Maya Barron MD on 04/13; All test results are final unless otherwise noted. ADD ON MICROSCOPIC [facility] Ordered by Maya Barron MD on 04/12/2021 Collected: 04/12/2021 Reported: 04/12/2021 00:53 ADD ON MICROSCOPIC See Note (0-5) H (High) Note: NOTES OTHER/NOT INTERPRETED Cells UrnS Micro Cells UrnS Micro FEW Cells UrnS Micro FEW Cells UrnS Micro FEW Cells UrnS Micro L Cells UrnS Micro Cells UrnS Micro Cells UrnS Micro Cells UrnS Micro Mucous Threads UrnS Ql Micro SMALL AMOUNT Mucous Threads UrnS Ql Micro SMALL AMOUNT Mucous Threads UrnS Ql Micro L Mucous Threads UrnS Ql Micro Mucous Threads UrnS Ql Micro Mucous Threads UrnS Ql Micro Mucous Threads UrnS Ql Micro [id number] Mucous Threads UrnS Ql Micro Mucous Threads UrnS Ql Micro SMALL AMOUNT RBC # Ur Manual 41-50 WBC # Ur Manual 20-30 Yeast Like Fungi UrnS Ql Micro FEW Yeast Like Fungi UrnS Ql Micro FEW Yeast Like Fungi UrnS Ql Micro L Yeast Like Fungi UrnS Ql Micro Yeast Like Fungi UrnS Ql Micro Yeast Like Fungi UrnS Ql Micro Yeast Like Fungi UrnS Ql Micro [id number] Yeast Like Fungi UrnS Ql Micro Yeast Like Fungi UrnS Ql Micro FEW @04/12/21 0040: UA W/ MICRO added. RFLXG = UMIC.Method of Collection:: VoidedResponsible Observer: RBC RBC 300.4900 (A) Reviewed by Maya Barron MD on 04/13; All test results are final unless otherwise noted. Reported Physicians [facility] Ordered by Maya Barron MD on 04/12/2021 Collected: 04/12/2021 Reported: 04/12/2021 00:53 Reported Physicians See Note None Note: Reported Physicians:Ordering: Conchis Omerending: Kevin Orozco To: Maya Barron Reviewed by Maya Barron MD on 04/13; All test results are final unless otherwise noted. URINALYSIS [facility] Ordered by Maya Barron MD on 04/12/2021 Collected: 04/12/2021 Reported: 04/12/2021 00:53 Urobilinogen Ur Ql See Note (0.2-1 EU/dl) None Note: 0.2 EU/dl0.2 [id number] E U/dlResponsible Observer: UROBILINOGEN UROBILINOGEN 300.4500 (C) RBC # Ur Strip LARGE (NEGATIVE) None Note: @DO MICRO!!!!Responsible Observer: BLOOD BLOOD 300.4650 (C) Prot Ur Ql Strip See Note (NEGATIVE) None Note: [id number] ble Observer: PROTEIN PROTEIN 300.3750 (C) Ketones Ur Ql Strip See Note (NEGATIVE) None Note: [id number] EResponsible Observer: KETONE KETONE 300.3900 (C) Bilirub Ur Ql Strip.auto See Note (NEGATIVE) None Note: [id number] EResponsible Observer: BILIRUBIN BILIRUBIN 300.4550 (C) Glucose Ur Strip.auto-mCnc NEGATIVE (NEGATIVE) None Note: Responsible Observer: GLUCOSE GLUC OSE 300.3850 (C) Appearance Ur See Note (CLEAR) A (Abnormal) Note: CLOUDYCLOUDYLCLOUDYResponsible Obs erver: APPEARANCE APPEARANCE 300.3400 (A) Color Ur See Note None Note: YELLOWYELLOWLYELLOWResponsible Obs erver: COLOR COLOR 300.3300 (A) Leukocyte esterase Ur Ql Strip See Note (NEGATIVE) None Note: [id number]@DO MICR O!!!!Responsible Observer: LEUKOCYTES LEUKOCYTES 300.3575 (C) Nitrite Ur Ql Strip See Note (NEGATIVE) None Note: [id number] EResponsible Observer: NITRITE NITRITE 300.3650 (B) pH Ur Strip 6.5 (5-8) None Note: Responsible Observer: PH PH 300.3 450 (C) Sp Gr Ur Refractometry 1.014 (1.005-1.030) None Note: Responsible Observer: SP GRAVITY U RINE SPECIFIC GRAVITY-MAN 300.3475 (C) URINE MICROSCOPIC ADDED Microscopic Added None Note: Responsible Observer: UA URINE SHAWN ROSCOPIC PENDING 300.4660 (D) NOTES See Note None Note: @04/12/21 0040: UA W/ MICRO added. RFLXG = UMIC.Method of Collection:: Voided Reviewed by Maya Barron MD on 04/13; All test results are final unless otherwise noted. Reported Physicians [facility] Ordered by Maya Barron MD on 04/12/2021 Collected: 04/12/2021 Reported: 04/12/2021 00:53 Reported Physicians See Note None Note: Reported Physicians:Ordering: Conchis Omerending: Pir ErnestoetManny To: Maya Barron Reviewed by Maya Barron MD on 04/13; All test results are final unless otherwise noted. Urine HCG [facility] Ordered by Maya Barron MD on 04/12/2021 Collected: 04/12/2021 Reported: 04/12/2021 00:52 HCG Ur-sCnc NEGATIVE (NEGATIVE) None Note: @Reenter manual test result: NEG@b Rosangela Kumar at 04/12/21 0052.Responsible Observer: BHCG,URINE BHCG,QUALITATIVE URINE 800.1000 (A) NOTES See Note None Note: @ DID THE CONTROL BAND APPEAR? Y@ DID THE BACKGROUND CLEAR? Y Reviewed by Maya Barron MD on 04/13; All test results are final unless otherwise noted. ADD ON MICROSCOPIC [facility] Ordered by Maya Barron MD on 04/11/2021 Collected: 04/11/2021 Reported: 04/11/2021 09:54 ADD ON MICROSCOPIC See Note (0-5) None Note: NOTES OTHER/NOT INTERPRETED Cells UrnS Micro Cells UrnS Micro FEW Cells UrnS Micro FEW Cells UrnS Micro FEW Cells UrnS Micro L Cells UrnS Micro Cells UrnS Micro Cells UrnS Micro Cells UrnS Micro RBC # Ur Manual 0-1 WBC # Ur Manual 1-2 Reason for ordering culture: Abnormal findings UA@04/11/21 0927: UA W/ MICRO added. RFLXG = UMIC CIF.Method of Collection:: Clean CatchResponsible Observer: RBC RBC 300.4900 (A) Reviewed by Maya Barron MD on 04/11; All test results are final unless otherwise noted. Reported Physicians [facility] Ordered by Maya Barron MD on 04/11/2021 Collected: 04/11/2021 Reported: 04/11/2021 09:54 Reported Physicians See Note None Note: Reported Physicians:Ordering: Choco KaurAttending: Adam Pardo To: Maya Barron Reviewed by Maya Barron MD on 04/11; All test results are final unless otherwise noted. UA W/ CULTURE IF ABNORMAL [facility] Ordered by Maya Barron MD on 04/11/2021 Collected: 04/11/2021 Reported: 04/11/2021 09:54 Urobilinogen Ur Ql See Note (0.2-1 EU/dl) None Note: 0.2 EU/dl0.2 EU/[id number] E U/dlResponsible Observer: UROBILINOGEN UROBILINOGEN 300.4500 (C) RBC # Ur Strip SMALL (NEGATIVE) None Note: @DO MICRO!!!!Responsible Observer: BLOOD BLOOD 300.4652 (C) Prot Ur Ql Strip See Note (NEGATIVE) None Note: [id number] EResponsible Observer: PROTEIN PROTEIN 300.3750 (C) Ketones Ur Ql Strip See Note (NEGATIVE) None Note: [id number] EResponsible Observer: KETONE KETONE 300.3900 (C) Bilirub Ur Ql Strip.auto See Note (NEGATIVE) None Note: [id number] EResponsible Observer: BILIRUBIN BILIRUBIN 300.4550 (C) Glucose Ur Strip.auto-mCnc NEGATIVE (NEGATIVE) None Note: Responsible Observer: GLUCOSE GLUC OSE 300.3850 (C) Appearance Ur See Note (CLEAR) None Note: CLEARCLEARLCLEARResponsible Observ er: APPEARANCE APPEARANCE 300.3400 (A) Color Ur See Note None Note: YELLOWYELLOWLYELLOWResponsible Obs erver: COLOR COLOR 300.3330 (A) Leukocyte esterase Ur Ql Strip See Note (NEGATIVE) None Note: [id number]@DO MICR O!!!!A Culture has been added to this specimen per established criteriaResponsible Observer: LEUKOCYTES LEUKOCYTES 300.3576 (C) Nitrite Ur Ql Strip See Note (NEGATIVE) None Note: [id number] EResponsible Observer: NITRITE NITRITE 300.3652 (B) pH Ur Strip 6.5 (5-8) None Note: Responsible Observer: PH PH 300.3 450 (C) Sp Gr Ur Refractometry 1.004 (1.005-1.030) None Note: Responsible Observer: SP GRAVITY U RINE SPECIFIC GRAVITY-MAN 300.3475 (C) URINE MICROSCOPIC? (CIF) Microscopic Added None Note: Responsible Observer: UA URINE SHAWN ROSCOPIC PENDING 300.4665 (D) NOTES See Note None Note: Reason for ordering culture: Abnor mal findings UA@04/11/21 0927: UA W/ MICRO added. RFLXG = UMIC CIF.Method of Collection:: Clean Catch Reviewed by Maya Barron MD on 04/13; All test results are final unless otherwise noted. Urine culture [facility] Ordered by Maya Barron MD on 04/11/2021 Collected: 04/11/2021 Reported: 04/12/2021 07:35 Urine culture result See Note None Note: Less than 10,000 CFU/MLStaph spp. coag negProbable contaminants no senst done NOTES See Note None Note: @04/11/21 0954: Urine culture adde d. RFLXG = CULT.ADD. Reviewed by Maya Barron MD on 04/13; All test results are final unless otherwise noted. Reported Physicians [facility] Ordered by Maya Barron MD on 04/11/2021 Collected: 04/11/2021 Reported: 04/12/2021 07:35 Reported Physicians See Note None Note: Reported Physicians:Ordering: Math is, TimothyAttending: Pardo, TimothyCopy To: Maya Barron Reviewed by Maya Barron MD on 04/13; All test results are final unless otherwise noted. CRP, C-REACTIVE PROTEIN [facility] Ordered by Maya Barron MD on 04/11/2021 Collected: 04/11/2021 Reported: 04/11/2021 09:00 CRP SerPl-mCnc Less Than 2.9 (0.0-5.0) N (Normal) Note: @Report as less than lower limitRe sponsible Observer: CRP C-Reactive Protein 401.4355 (H) Reviewed by Maya Barron MD on 04/11; All test results are final unless otherwise noted. Reported Physicians [facility] Ordered by Maya Barron MD on 04/11/2021 Collected: 04/11/2021 Reported: 04/11/2021 09:00 Reported Physicians See Note None Note: Reported Physicians:Ordering: Math is, TimothyAttending: Pardo, TimothyCopy To: Maya Barron Reviewed by Maya Barron MD on 04/11; All test results are final unless otherwise noted. MAGNESIUM [facility] Ordered by Maya Barron MD on 04/11/2021 Collected: 04/11/2021 Reported: 04/11/2021 09:00 Magnesium SerPl-mCnc 2.0 MilliGramsPerDeciLiter_[Mass_Concentration_Units] (1.3-2.7) N (Normal) Note: Responsible Observer: Magnesium Ma gnesium 400.3300 (G) Reviewed by Maya Barron MD on 04/11; All test results are final unless otherwise noted. Reported Physicians [facility] Ordered by Maya Barron MD on 04/11/2021 Collected: 04/11/2021 Reported: 04/11/2021 09:00 Reported Physicians See Note None Note: Reported Physicians:Ordering: Math is, TimothyAttending: Pardo, TimothyCopy To: Maya Barron Reviewed by Maya Barron MD on 04/11; All test results are final unless otherwise noted. LIPASE [facility] Ordered by Maya Barron MD on 04/11/2021 Collected: 04/11/2021 Reported: 04/11/2021 09:00 Lipase SerPl-cCnc 101 enzyme_unit_per_liter (73-393) N (Normal) Note: Responsible Observer: Lipase Lipas e 400.2310 (G) Reviewed by Maya Barron MD on 04/11; All test results are final unless otherwise noted. Reported Physicians [facility] Ordered by Maya Barron MD on 04/11/2021 Collected: 04/11/2021 Reported: 04/11/2021 09:00 Reported Physicians See Note None Note: Reported Physicians:Ordering: Math is, TimothyAttending: Edvin, TimothyCopy To: Maya Barron Reviewed by Maya Barron MD on 04/11; All test results are final unless otherwise noted. CBC W AUTO DIFF [facility] Ordered by Maya Barron MD on 04/11/2021 Collected: 04/11/2021 Reported: 04/11/2021 08:03 MCV BldCo Auto 81 FemtoLiter_[SI_Volume_Units] (80-96) N (Normal) Note: Responsible Observer: MCV MCV 100 .0600 (B) RDW RBC Auto 16 percent (11-15) H (High) Note: Responsible Observer: RDW RDW 100 .0900 (B) Manual diff Bld NO None Note: Responsible Observer: CBC Manual D ifferential Added 100.1990 (B) PMV Bld 9.7 FemtoLiter_[SI_Volume_Units] (9.1-13.1) N (Normal) Note: Responsible Observer: MPV MPV 100 .1100 (B) Imm Granulocytes Bld Ql Auto See Note (0-2) N (Normal) Note: [id number] Ob server support technician: IG% IG% 100.1375 (B) Hct VFr Bld Auto 38.9 percent (37-47) N (Normal) Note: Responsible Observer: HEMATOCRIT H EMATOCRIT 100.0500 (B) MCHC BldCo-mCnc 32 GramsPerDeciLiter_[Mass_Concentration_Units] (33-37) L (Low) Note: Responsible Observer: MCHC MCHC 1 00.0800 (B) Imm Granulocytes # Bld Auto 0.0 Unit (0-0.1) None Note: Responsible Observer: IG# IG# 100 .1400 (B) Monocytes/leuk NFr Bld Auto 9.7 percent (4-12) N (Normal) Note: Responsible Observer: MONO % MONO % 100.1225 (B) Hgb Bld-sCnc 12.4 GramsPerDeciLiter_[Mass_Concentration_Units] (10.7-15.4) N (Normal) Note: Responsible Observer: HGB HEMOGLOB IN 100.0400 (B) WBC # Bld Auto 5.7 ThousandsPerMicroLiter_[Number_Concentration_Units] (4.45-10 .71) N (Normal) Note: Responsible Observer: WBC WHITE BL OOD COUNT 100.0100 (E) Basophils # Bld Auto 0.0 Unit (0.0-0.2) N (Normal) Note: Responsible Observer: BASO # BASO# 100.1350 (B) Basophils/leuk NFr Bld Auto 0.7 percent (0.4-1.3) N (Normal) Note: Responsible Observer: BASO % BASO % 100.1325 (B) Eosinophil # Bld Auto 0.2 Unit (0.0-0.5) N (Normal) Note: Responsible Observer: EOS # EOS# 100.1300 (D) Eosinophil/leuk NFr Bld Auto 2.7 percent (0-7) N (Normal) Note: Responsible Observer: EOS % EOS % 100.1275 (B) Lymphocytes # Bld Auto 2.9 Unit (0.6-4.6) N (Normal) Note: Responsible Observer: LYMPH # LYMP H# 100.1200 (B) Lymphocytes/leuk NFr Bld Auto 51.6 percent (14-46) H (High) Note: Responsible Observer: LYMPH % LYMP H % 100.1175 (B) Monocytes # Bld Auto 0.6 Unit (0.2-1.2) N (Normal) Note: Responsible Observer: MONO # MONO# 100.1250 (C) Neutrophils # Bld Auto 2.0 Unit (1.7-7.6) N (Normal) Note: Responsible Observer: NEUT# NEUT# 100.1150 (B) Neutrophils/leuk NFr Bld Auto 35.1 percent (41-77) L (Low) Note: Responsible Observer: NEUT% NEUT% 100.1125 (B) Platelet # Bld Auto 306 ThousandsPerMicroLiter_[Number_Concentration_Units] (130-472 ) N (Normal) Note: Responsible Observer: PLATELET COU NT PLATELET COUNT 100.1000 (D) MCH RBC Qn Auto 26 PicoGram_[SI_Mass_Units] (27-31) L (Low) Note: Responsible Observer: MCH MCH 100 .0700 (B) RBC # Bld Auto 4.78 MillionsPerMicroLiter_[Number_Concentration_Units] (4.20-5.4 0) N (Normal) Note: Responsible Observer: RBC Red Bloo d Count 100.0300 (B) NUCLEATED RED BLOOD CELL# 0 Unit None Note: Responsible Observer: NRBC# NUCLEA VICTOR M RBC 100.1362 (A) NUCLEATED RED BLOOD CELL 0 percent None Note: Responsible Observer: NRBC% NRBC% 100.1360 (B) Reviewed by Maya Barron MD on 09/29 /2021; All test results are final unless otherwise noted. [facility] Ordered by Maya Barron MD on 04/11/2021 Collected: 04/11/2021 Reported: 04/11/2021 09:00 ALT SerPl w P-5'-P-cCnc 24 enzyme_unit_per_liter (10-49) N (Normal) Note: Responsible Observer: SGPT/ALT SGP T/ALT 400.1750 (G) Calcium SerPl-mCnc 8.6 MilliGramsPerDeciLiter_[Mass_Concentration_Units] (8.5-10.1) N (Normal) Note: Responsible Observer: Calcium Calc ium 400.2500 (G) Bilirub SerPl-mCnc 0.2 MilliGramsPerDeciLiter_[Mass_Concentration_Units] (0.3-1.2) L (Low) Note: Responsible Observer: T KELLIE Total Bilirubin 400.2600 (G) CO2 SerPl-sCnc 25 MilliMolesPerLiter_[Substance_Concentration_Units] (20-31) N (Normal) Note: Responsible Observer: CO2 Carbon D ioxide 400.1400 (G) Chloride SerPl-sCnc 110 MilliMolesPerLiter_[Substance_Concentration_Units] (99-109) H (High) Note: Responsible Observer: Chloride Chl oride 400.1250 (G) Glucose SerPl-mCnc 97 MilliGramsPerDeciLiter_[Mass_Concentration_Units] (74-106) N (Normal) Note: Responsible Observer: Glucose Gluc ose 400.1500 (G) Potassium SerPl-sCnc 3.4 MilliMolesPerLiter_[Substance_Concentration_Units] (3.5-5.5) L (Low) Note: Responsible Observer: K Potassium 400.1210 (G) Prot SerPl-mCnc 6.6 GramsPerDeciLiter_[Mass_Concentration_Units] (5.7-8.2) N (Normal) Note: Responsible Observer: TP Total Pro tein 400.2800 (G) Sodium SerPl-sCnc 142 MilliMolesPerLiter_[Substance_Concentration_Units] (132-146) N (Normal) Note: Responsible Observer: Sodium Sodiu m 400.1100 (G) AST SerPl w P-5'-P-cCnc 16 enzyme_unit_per_liter (0-33) N (Normal) Note: Responsible Observer: SGOT / AST S GOT / AST 400.1900 (G) BUN SerPl-mCnc 6 MilliGramsPerDeciLiter_[Mass_Concentration_Units] (9-23) L (Low) Note: Responsible Observer: BUN Blood Ur ea Nitrogen 400.1000 (G) Anion Gap SerPl-sCnc 10 MilliMolesPerLiter_[Substance_Concentration_Units] (8-16) N (Normal) Note: Responsible Observer: ANION GAP AN ION GAP 400.1402 (E) Albumin SerPl BCP-mCnc 3.3 GramsPerDeciLiter_[Mass_Concentration_Units] (3.2-4.8) N (Normal) Note: Responsible Observer: Albumin Albu min 400.2700 (G) ALP SerPl-cCnc 126 enzyme_unit_per_liter (45-129) N (Normal) Note: Responsible Observer: ALP Alkaline Phosphatase 400.2000 (G) GFR/BSA.pred SerPlBld-ArVRat Greater Than 60 (ABOVE 60) None Note: Responsible Observer: GFR Glomerul ar Filt Rate Calc 400.1605 (D) Creatinine 0.7 MilliGramsPerDeciLiter_[Mass_Concentration_Units] (0.5-1.1) N (Normal) Note: Responsible Observer: Creatinine C reatinine 400.1600 (G) Reviewed by Maya Barron MD on 04/11; All test results are final unless otherwise noted. [facility] Lab Ordered by Maya Barron MD on 04/11/2021 Collected: 04/11/2021 Reported: 04/11/2021 09:00 Lactic w Rfx (if elevated) 1.9 MilliMolesPerLiter_[Substance_Concentration_Units] (0.5-2.0) N (Normal) Note: Responsible Observer: Lactic Acid Lactic Acid 400.2831 (G) NOTES See Note None Note: Special Instructions: Lab may orde r repeat test if initial test elevatedPhysician If elevated, reflex second test in 4-6 hrs Reviewed by Maya Barron MD on 04/11; All test results are final unless otherwise noted. Reported Physicians [facility] Lab Ordered by Maya Barron MD on 04/11/2021 Collected: 04/11/2021 Reported: 04/11/2021 09:00 Reported Physicians See Note None Note: Reported Physicians:Ordering: Tramaine KaurothyAttending: Tramaine PardoothyCopy To: Maya Barron Reviewed by Maya Barron MD on 04/11; All test results are final unless otherwise noted. Type and Screen [facility] Lab Ordered by Maya Barron MD on 04/11/2021 Collected: 04/11/2021 Reported: 04/11/2021 09:00 Blood bank studies Yes None Note: Responsible Observer: Prev. Histor y? Previous History? 100.0800 (A) Antibody Screen NEGATIVE None Note: Responsible Observer: Antibody Scr een Antibody Screen 200.0000 (C) Blood Type See Note None Note: OPO PositiveLResponsible Observer: Blood Type Blood Type 110.0950 (C) NOTES See Note None Note: :: YTransfused within 90 d ays?: NPre Op? (IF Yes, give date): N Reviewed by Maya Barron MD on 04/11; All test results are final unless otherwise noted. Reported Physicians [facility] Lab Ordered by Maya Barron MD on 04/11/2021 Collected: 04/11/2021 Reported: 04/11/2021 09:00 Reported Physicians See Note None Note: Reported Physicians:Ordering: Tramaine KaurothyAttending: Tramaine PardoothyCopyifan To: Maya Barron Reviewed by Maya Barron MD on 04/11; All test results are final unless otherwise noted. BHCG Quantitative [facility] Lab Ordered by Maya Barron MD on 04/11/2021 Collected: 04/11/2021 Reported: 04/11/2021 09:00 B-HCG SerPl-aCnc Less Than 1 (1-3) L (Low) Note: @Report as less than lower limitSP ECIMEN IS SLIGHTLY LIPEMICApproximate Gestational Age Approximate HCG Range 0.2-1 Week 5 - 50 1-2 Weeks 50 - 500 2-3 Weeks 100 - 5,000 3-4 Weeks 500 - 10,000 4-5 Weeks 1,000 - 50,000 5-6 Weeks 10,000 - 100,000 6-8 Weeks 15,000 - 100,000 2-3 Months 10,000 - 100,000Responsible Observer: BHCG Quant BHCG Quantitative 600.5006 (G) Reviewed by Maya Barron MD on 04/11; All test results are final unless otherwise noted. Reported Physicians [facility] Lab Ordered by Maya Barron MD on 04/11/2021 Collected: 04/11/2021 Reported: 04/11/2021 09:00 Reported Physicians See Note None Note: Reported Physicians:Ordering: Sara Kaurending: Adam Pardo To: Maya Braron Reviewed by Maya Barron MD on 04/11; All test results are final unless otherwise noted. UA W/ CULTURE IF ABNORMAL [facility] Lab Ordered by Maya Barron MD on 2021 Collected: 2021 Reported: 2021 22:33 Urobilinogen Ur Ql See Note (0.2-1 EU/dl) None Note: 0.2 EU/dl0.2 EU/[id number] E U/dlResponsible Observer: UROBILINOGEN UROBILINOGEN 300.4500 (C) RBC # Ur Strip LARGE (NEGATIVE) None Note: @DO MICRO!!!!A Culture has been ad ded to this specimen per established criteriaResponsible Observer: BLOOD BLOOD 300.4652 (C) Prot Ur Ql Strip See Note (NEGATIVE) None Note: [id number] EResponsible Observer: PROTEIN PROTEIN 300.3750 (C) Ketones Ur Ql Strip See Note (NEGATIVE) None Note: 15 mg/dL15 mg/[id number] mg/d LResponsible Observer: KETONE KETONE 300.3900 (C) Bilirub Ur Ql Strip.auto See Note (NEGATIVE) None Note: [id number] EResponsible Observer: BILIRUBIN BILIRUBIN 300.4550 (C) Glucose Ur Strip.auto-mCnc NEGATIVE (NEGATIVE) None Note: Responsible Observer: GLUCOSE GLUC OSE 300.3850 (C) Appearance Ur See Note (CLEAR) None Note: CLEARCLEARLCLEARResponsible Observ er: APPEARANCE APPEARANCE 300.3400 (A) Color Ur See Note None Note: YELLOWYELLOWLYELLOWResponsible Obs erver: COLOR COLOR 300.3330 (A) Leukocyte esterase Ur Ql Strip See Note (NEGATIVE) None Note: [id number]@DO MICR O!!!!A Culture has been added to this specimen per established criteriaResponsible Observer: LEUKOCYTES LEUKOCYTES 300.3576 (C) Nitrite Ur Ql Strip See Note (NEGATIVE) None Note: [id number] EResponsible Observer: NITRITE NITRITE 300.3652 (B) pH Ur Strip 7.5 (5-8) None Note: Responsible Observer: PH PH 300.3 450 (C) Sp Gr Ur Refractometry 1.008 (1.005-1.030) None Note: Responsible Observer: SP GRAVITY U RINE SPECIFIC GRAVITY-MAN 300.3475 (C) URINE MICROSCOPIC? (CIF) Microscopic Added None Note: Responsible Observer: UA URINE SHAWN ROSCOPIC PENDING 300.4665 (D) NOTES See Note None Note: Reason for ordering culture: Abnor mal findings UA@03/26/21 2205: UA W/ MICRO added. RFLXG = UMIC CIF.Method of Collection:: Voided Reviewed by Maya Barron MD on 03/28; All test results are final unless otherwise noted. Urine culture [facility] Lab Ordered by Maya Barron MD on 2021 Collected: 2021 Reported: 03/28/2021 08:43 Urine culture result See Note None Note: Less than 10,000 CFU/MLStaph spp. coag negProbable contaminants no senst done NOTES See Note None Note: @03/26/21 2233: Urine culture adde d. RFLXG = CULT.ADD. Reviewed by Maya Barron MD on 03/28; All test results are final unless otherwise noted. Reported Physicians [facility] Lab Ordered by Maya Barron MD on 2021 Collected: 2021 Reported: 03/28/2021 08:43 Reported Physicians See Note None Note: Reported Physicians:Ordering: Aj Ferreiraending: Jos Rivas To: Maya Barron Reviewed by Maya Barron MD on 03/28; All test results are final unless otherwise noted. ADD ON MICROSCOPIC [facility] Lab Ordered by Maya Barron MD on 2021 Collected: 2021 Reported: 2021 22:33 ADD ON MICROSCOPIC See Note (0-5) H (High) Note: NOTES OTHER/NOT INTERPRETED RBC # Ur Manual 6-10 WBC # Ur Manual OCCASIONAL Reason for ordering culture: Abnormal findings UA@03/26/21 2205: UA W/ MICRO added. RFLXG = UMIC CIF.Method of Collection:: VoidedResponsible Observer: RBC RBC 300.4900 (A) Reviewed by Maya Barron MD on 03/27; All test results are final unless otherwise noted. Reported Physicians [facility] Lab Ordered by Maya Barron MD on 2021 Collected: 2021 Reported: 2021 22:34 Reported Physicians See Note None Note: Reported Physicians:Ordering: Aj Ferreiraending: Jos Rivas To: Maya Barron Reviewed by Maya Barron MD on 03/27; All test results are final unless otherwise noted. Cepheid SARS/FLU/RSV RT-PCR [facility] Lab Ordered by Maya Barron MD on 2021 Collected: 2021 Reported: 2021 19:09 FLUABV+SARS-CoV-2+RSV Pnl Resp ТАТЬЯНА+probe See Note None Note: NORMAL RESULT IS "Not Detected"Cep heid SARS-CoV-2,FLU/RSV is Multiplex real time RT-PCRNegative results do not preclude SARS-COV-2, influenza orRSV infection and should not be used as the sole basis fortreatment or other patient management decisions.False negative results may occur if virus is present atlevels below the analytical limit of detection.This test has been authorized by FDA under an EUA for use bymimbres memorial hospitalCollaborative Software Initiativeatpfmgzjotlw57136-3OHOQ-sge CoV RNA Resp Ql ТАТЬЯНА+yqjavGZVLPDOLKUT-VHL-1 NOT [id number]-EHU-6 NOT JRNEDVNG70722-0XQIPE RNA Resp Ql ТАТЬЯНА+probeLNNFLUAInfluenza A Not Det [id number] A Not Nmtvlirk43317-6RAZUG RNA Resp Ql ТАТЬЯНА+probeLNNINBInfluenza B Not [id number] B Not Bredmgvx43473- 2RSV RNA Resp Ql ТАТЬЯНА+probeLNNRSVRSV Not [id number] Not Detected Reviewed by Maya Barron MD on 03/27; All test results are final unless otherwise noted. Reported Physicians [facility] Lab Ordered by Maya Barron MD on 2021 Collected: 2021 Reported: 2021 19:09 Reported Physicians See Note None Note: Reported Physicians:Ordering: Aj Ferreiraending: Jos Rivas To: Maya Barron Reviewed by Maya Barron MD on 03/27; All test results are final unless otherwise noted. D-DIMER [facility] Lab Ordered by Maya Barron MD on 2021 Collected: 2021 Reported: 2021 20:33 Deprecated D Dimer PPP-aCnc 1.09 MilliGramsPerLiter_[Mass_Concentration_Units] (0.0-0.50) H (High) Note: @ Has QC been run for this test to day?YESPLEASE NOTE: THIS TEST WAS PERFORMED USING A PARTICLE-ENHANCED, IMMUNOTURBIDIMETRIC ASSAY AND HAS A SINGLE,CLINICALLY DERIVED CUTOFF OF 0.50 MG/L.Responsible Observer: D-DIMER D- DIMER 200.0901 (A) NOTES See Note None Note: Is test to R/O PE, DVT or VTE? Y Reviewed by Maya Barron MD on 03/27; All test results are final unless otherwise noted. Reported Physicians [facility] Lab Ordered by Maya Barron MD on 2021 Collected: 2021 Reported: 2021 20:34 Reported Physicians See Note None Note: Reported Physicians:Ordering: Cristino FerreiraAttending: Jos Rivas To: Maya Barron Reviewed by Maya Barron MD on 03/27; All test results are final unless otherwise noted. LAC [facility] Lab Ordered by Maya Barron MD on 2021 Collected: 2021 Reported: 2021 18:49 Lactic w Rfx (if elevated) 1.1 MilliMolesPerLiter_[Substance_Concentration_Units] (0.5-2.0) N (Normal) Note: Responsible Observer: Lactic Acid Lactic Acid 400.2831 (G) NOTES See Note None Note: Special Instructions: Lab may orde r repeat test if initial test elevatedPhysician If elevated, reflex second test in 4-6 hrs Reviewed by Maya Barron MD on 04/02; All test results are final unless otherwise noted. Blood Culture (Incl Anaerobic)-1 [facility] ab Ordered by Maya Barron MD on 2021 Collected: 2021 Reported: 03/31/2021 18:17 Bacteria Bld Cult See Note None Note: NG5DNo growth.E4PW6JLO GROWTH AFTE R 5 DAYS Reviewed by Maya Barron MD on 04/02; All test results are final unless otherwise noted. Blood Culture (Incl Anaerobic)-2 [facility] ab Ordered by Maya Barron MD on 2021 Collected: 2021 Reported: 03/31/2021 18:17 Bacteria Bld Cult See Note None Note: NG5DNo growth.P1NZ8SHF GROWTH AFTE R 5 DAYS Reviewed by Maya Barron MD on 04/02; All test results are final unless otherwise noted. Reported Physicians [facility] Lab Ordered by Maya Barron MD on 2021 Collected: 2021 Reported: 03/31/2021 18:17 Reported Physicians See Note None Note: Reported Physicians:Ordering: Cristino FerreiraAttending: Cristino CastellanosConsulting: Jos Rivas To: Maya Barron Reviewed by Maya Barron MD on 04/02; All test results are final unless otherwise noted. CBC W AUTO DIFF [facility] Lab Ordered by Maya Barron MD on 2021 Collected: 2021 Reported: 2021 18:20 MCV BldCo Auto 82 FemtoLiter_[SI_Volume_Units] (80-96) N (Normal) Note: Responsible Observer: MCV MCV 100 .0600 (B) RDW RBC Auto 15 percent (11-15) N (Normal) Note: Responsible Observer: RDW RDW 100 .0900 (B) Manual diff Bld NO None Note: Responsible Observer: CBC Manual D ifferential Added 100.1990 (B) PMV Bld 8.9 FemtoLiter_[SI_Volume_Units] (9.1-13.1) L (Low) Note: Responsible Observer: MPV MPV 100 .1100 (B) Imm Granulocytes Bld Ql Auto See Note (0-2) N (Normal) Note: [id number] Ob server support technician: IG% IG% 100.1375 (B) Hct VFr Bld Auto 39.5 percent (37-47) N (Normal) Note: Responsible Observer: HEMATOCRIT H EMATOCRIT 100.0500 (B) MCHC BldCo-mCnc 30 GramsPerDeciLiter_[Mass_Concentration_Units] (33-37) L (Low) Note: Responsible Observer: MCHC MCHC 1 00.0800 (B) Imm Granulocytes # Bld Auto 0.0 Unit (0-0.1) None Note: Responsible Observer: IG# IG# 100 .1400 (B) Monocytes/leuk NFr Bld Auto 9.5 percent (4-12) N (Normal) Note: Responsible Observer: MONO % MONO % 100.1225 (B) Hgb Bld-sCnc 12.0 GramsPerDeciLiter_[Mass_Concentration_Units] (10.7-15.4) N (Normal) Note: Responsible Observer: HGB HEMOGLOB IN 100.0400 (B) WBC # Bld Auto 7.9 ThousandsPerMicroLiter_[Number_Concentration_Units] (4.45-10 .71) N (Normal) Note: Responsible Observer: WBC WHITE BL OOD COUNT 100.0100 (E) Basophils # Bld Auto 0.0 Unit (0.0-0.2) N (Normal) Note: Responsible Observer: BASO # BASO# 100.1350 (B) Basophils/leuk NFr Bld Auto 0.4 percent (0.4-1.3) N (Normal) Note: Responsible Observer: BASO % BASO % 100.1325 (B) Eosinophil # Bld Auto 0.1 Unit (0.0-0.5) N (Normal) Note: Responsible Observer: EOS # EOS# 100.1300 (D) Eosinophil/leuk NFr Bld Auto 0.9 percent (0-7) N (Normal) Note: Responsible Observer: EOS % EOS % 100.1275 (B) Lymphocytes # Bld Auto 2.3 Unit (0.6-4.6) N (Normal) Note: Responsible Observer: LYMPH # LYMP H# 100.1200 (B) Lymphocytes/leuk NFr Bld Auto 29.4 percent (14-46) N (Normal) Note: Responsible Observer: LYMPH % LYMP H % 100.1175 (B) Monocytes # Bld Auto 0.8 Unit (0.2-1.2) N (Normal) Note: Responsible Observer: MONO # MONO# 100.1250 (C) Neutrophils # Bld Auto 4.7 Unit (1.7-7.6) N (Normal) Note: Responsible Observer: NEUT# NEUT# 100.1150 (B) Neutrophils/leuk NFr Bld Auto 59.5 percent (41-77) N (Normal) Note: Responsible Observer: NEUT% NEUT% 100.1125 (B) Platelet # Bld Auto 325 ThousandsPerMicroLiter_[Number_Concentration_Units] (130-472 ) N (Normal) Note: Responsible Observer: PLATELET COU NT PLATELET COUNT 100.1000 (D) MCH RBC Qn Auto 25 [place]_[SI_Mass_Units] (27-31) L (Low) Note: Responsible Observer: MCH MCH 100 .0700 (B) RBC # Bld Auto 4.81 MillionsPerMicroLiter_[Number_Concentration_Units] (4.20-5.4 0) N (Normal) Note: Responsible Observer: RBC Red Bloo d Count 100.0300 (B) NUCLEATED RED BLOOD CELL# 0 Unit None Note: Responsible Observer: NRBC# CORKY DOW RBC 100.1362 (A) NUCLEATED RED BLOOD CELL 0 percent None Note: Responsible Observer: NRBC% NRBC% 100.1360 (B) Reviewed by Maya Barron MD on 03/27; All test results are final unless otherwise noted. [facility] Lab Ordered by Maya Barron MD on 2021 Collected: 2021 Reported: 2021 18:49 ALT SerPl w P-5'-P-cCnc 27 enzyme_unit_per_liter (10-49) N (Normal) Note: Responsible Observer: SGPT/ALT SGP T/ALT 400.1750 (G) Calcium SerPl-mCnc 8.9 MilliGramsPerDeciLiter_[Mass_Concentration_Units] (8.5-10.1) N (Normal) Note: Responsible Observer: Calcium Calc ium 400.2500 (G) Bilirub SerPl-mCnc 0.4 MilliGramsPerDeciLiter_[Mass_Concentration_Units] (0.3-1.2) N (Normal) Note: Responsible Observer: T KELLIE Total Bilirubin 400.2600 (G) CO2 SerPl-sCnc 23 MilliMolesPerLiter_[Substance_Concentration_Units] (20-31) N (Normal) Note: Responsible Observer: CO2 Carbon D ioxide 400.1400 (G) Chloride SerPl-sCnc 109 MilliMolesPerLiter_[Substance_Concentration_Units] (99-109) N (Normal) Note: Responsible Observer: Chloride Chl oride 400.1250 (G) Glucose SerPl-mCnc 88 MilliGramsPerDeciLiter_[Mass_Concentration_Units] (74-106) N (Normal) Note: Responsible Observer: Glucose Gluc ose 400.1500 (G) Potassium SerPl-sCnc 3.8 MilliMolesPerLiter_[Substance_Concentration_Units] (3.5-5.5) N (Normal) Note: Responsible Observer: K Potassium 400.1210 (G) Prot SerPl-mCnc 7.6 GramsPerDeciLiter_[Mass_Concentration_Units] (5.7-8.2) N (Normal) Note: Responsible Observer: TP Total Pro tein 400.2800 (G) Sodium SerPl-sCnc 140 MilliMolesPerLiter_[Substance_Concentration_Units] (132-146) N (Normal) Note: Responsible Observer: Sodium Sodiu m 400.1100 (G) AST SerPl w P-5'-P-cCnc 15 enzyme_unit_per_liter (0-33) N (Normal) Note: Responsible Observer: SGOT / AST S GOT / AST 400.1900 (G) BUN SerPl-mCnc 8 MilliGramsPerDeciLiter_[Mass_Concentration_Units] (9-23) L (Low) Note: Responsible Observer: BUN Blood Ur ea Nitrogen 400.1000 (G) Anion Gap SerPl-sCnc 12 MilliMolesPerLiter_[Substance_Concentration_Units] (8-16) N (Normal) Note: Responsible Observer: ANION GAP AN ION GAP 400.1402 (E) Albumin SerPl BCP-mCnc 3.0 GramsPerDeciLiter_[Mass_Concentration_Units] (3.2-4.8) L (Low) Note: Responsible Observer: Albumin Albu min 400.2700 (G) ALP SerPl-cCnc 200 enzyme_unit_per_liter (45-129) H (High) Note: Responsible Observer: ALP Alkaline Phosphatase 400.2000 (G) GFR/BSA.pred SerPlBld-ArVRat Greater Than 60 (ABOVE 60) None Note: Responsible Observer: GFR Glomerul ar Filt Rate Calc 400.1605 (D) Creatinine 0.7 MilliGramsPerDeciLiter_[Mass_Concentration_Units] (0.5-1.1) N (Normal) Note: Responsible Observer: Creatinine C reatinine 400.1600 (G) Reviewed by Maya Barron MD on 03/27; All test results are final unless otherwise noted. Reported Physicians [facility] Lab Ordered by Maya Barron MD on 2021 Collected: 2021 Reported: 2021 18:50 Reported Physicians See Note None Note: Reported Physicians:Ordering: Aj Ferreiraending: Jos Rivas To: Maya Barron Reviewed by Maya Barron MD on 03/27; All test results are final unless otherwise noted. Cepheid SARS/FLU/RSV RT-PCR [facility] Lab Ordered by Maya Barron MD on 03/23/2021 Collected: 03/23/2021 Reported: 03/23/2021 19:23 FLUABV+SARS-CoV-2+RSV Pnl Resp ТАТЬЯНА+probe See Note None Note: NORMAL RESULT IS "Not Detected"Cep heid SARS-CoV-2,FLU/RSV is Multiplex real time RT-PCRNegative results do not preclude SARS-COV-2, influenza orRSV infection and should not be used as the sole basis fortreatment or other patient management decisions.False negative results may occur if virus is present atlevels below the analytical limit of detection.This test has been authorized by FDA under an EUA for use byDFT MicrosystemshoriR&M Engineeringifyhsgbcddhl52278-7HFAR-hlk CoV RNA Resp Ql ТАТЬЯНА+uxjmwZVTQURWBHXG-SGB-5 NOT [id number]-ZOC-7 NOT KJIGXBAL95390-5WAXXR RNA Resp Ql ТАТЬЯНА+probeLNNFLUAInfluenza A Not Det [id number] A Not Upjhtuwh12019-2IUKOK RNA Resp Ql ТАТЬЯНА+probeLNNINBInfluenza B Not [id number] B Not Qyglovwt45530- 2RSV RNA Resp Ql ТАТЬЯНА+probeLNNRSVRSV Not [id number] Not Detected Reviewed by Maya Barron MD on 03/26; All test results are final unless otherwise noted. Reported Physicians [facility] Lab Ordered by Maya Barron MD on 03/23/2021 Collected: 03/23/2021 Reported: 03/23/2021 19:23 Reported Physicians See Note None Note: Reported Physicians:Ordering: Maya AlvarengaAttending: Dheeraj TeranoAdmitting: Dileep Teran To: Mike Teran Reviewed by Maya Barron MD on 03/26; All test results are final unless otherwise noted. URINE DRUG SCREEN -([facility]) [facility] Lab Ordered by Maya Barron MD on 03/23/2021 Collected: 03/23/2021 Reported: 03/23/2021 08:11 PCP Ur Ql Scn>25 ng/mL See Note (Cutoff 25) None Note: [id number] E@Reenter manual test result: NEGATIVE@by Claudia Tello at 03/23/21808.Responsible Observer: PCP Urine Phencyclidine (PCP) Scrn 400.5120 (A) THC Ur Ql Scn>50 ng/mL See Note (Cutoff 50) None Note: [id number] EResponsible Observer: Marijuana (THC) Ur Marijuana (THC) Screen 400.5110 (A) Benzodiaz Ur Ql Scn See Note (Cutoff 150) None Note: [id number] E@Reenter manual test result: NEGATIVE@by Claudia Tello at 03/23/21809.Responsible Observer: Benzodiazepines Urine Benzodiazepines Screen 400.5170 (A) Opiates Ur Ql Scn See Note (Cutoff 100) None Note: [id number] E@Reenter manual test result: NEGATIVE@by Claudia Tello at 03/23/21809.Responsible Observer: Opiates Urine Opiates Screen 400.5150 (A) Tricyclics Ur Ql Scn See Note (Cutoff 300) None Note: [id number] E@Reenter manual test result: NEGATIVE@by Claudia Tello at 03/23/21809.Responsible Observer: TCA Ur Tricyclic Antidepressants 400.5180 (A) Cocaine Ur Ql Scn See Note (Cutoff 150) None Note: [id number] E@Reenter manual test result: NEGATIVE@by Claudia Tello at 03/23/21808.Responsible Observer: Cocaine Urine Cocaine Screen 400.5130 (A) Propoxyph+Nor Ur Ql Scn See Note (Cutoff 300) None Note: [id number] E@Reenter manual test result: NEGATIVE@by Claudia Tello at 03/23/21809.Responsible Observer: Propoxyphene Urine Propoxyphene Screen 400.5220 (A) Methadone Ur Ql Scn See Note (Cutoff 200) None Note: [id number] E@Reenter manual test result: NEGATIVE@by Claudia Tello at 03/23/21 08.Responsible Observer: Methadone Urine Methadone Screen 400.5190 (A) Methamphet Ur Ql Scn See Note (Cutoff 500) None Note: [id number] E@Reenter manual test result: NEGATIVE@by Claudia Tello at 03/23/21 0809.Responsible Observer: Methamphetamine Urine Methamphetamines Screen 400.5140 (A) oxyCODONE Ur Ql Scn See Note (Cutoff 100) None Note: [id number] E@Reenter manual test result: NEGATIVE@by Claudia Tello at 03/23/21 0810.Responsible Observer: Oxycodone Urine Oxycodone Screen 400.5210 (A) Buprenorphine Ur Ql See Note (Cutoff 10) None Note: [id number] E@Reenter manual test result: NEGATIVE@by Claudia Tello at 03/23/21 0810.Responsible Observer: Buprenorphine Urine Buprenorphine Screen 400.5230 (A) Amphetamines Ur Ql Scn>500 ng/mL See Note (Cutoff 500) None Note: [id number] E@Reenter manual test result: NEGATIVE@by Claudia Tello at 03/23/21 0810.Responsible Observer: Amphetamines Urine Amphetamines Screen 400.5160 (A) Barbiturates Ur Ql Scn>200 ng/mL See Note (Cutoff 200) None Note: [id number] E@Reenter manual test result: NEGATIVE@by Claudia Tello at 03/23/21 0810.Responsible Observer: Barbiturates Urine Barbiturates 400.5200 (A) Reviewed by Maya Barron MD on 03/23; All test results are final unless otherwise noted. [facility] Lab Ordered by Maya Barron MD on 03/23/2021 Collected: 03/23/2021 Reported: 03/23/2021 07:59 Prot 24h Ur-mCnc 13.6 MilliGramsPerDeciLiter_[Mass_Concentration_Units] (0-11.8) H (High) Note: Responsible Observer: UR PROT RAND Urine Random Total Protein 1005.0005 (E) Creat Ur-mCnc 53.0 MilliGramsPerDeciLiter_[Mass_Concentration_Units] None Note: Responsible Observer: URINE CREAT Urine Random Creatinine 1005.0010 (E) Prot/Creat Ur 0.26 None Note: Responsible Observer: UR PROT/CRE Ur Random Protein/Creat Ratio 1005.0015 (C) Reviewed by Maya Barron MD on 03/23; All test results are final unless otherwise noted. Reported Physicians [facility] Lab Ordered by Maya Barron MD on 03/23/2021 Collected: 03/23/2021 Reported: 03/23/2021 07:59 Reported Physicians See Note None Note: Reported Physicians:Ordering: Sara Kaurending: Dheeraj TeranoAdmitting: Dileep Teran To: Maya Barron Reviewed by Maya Barron MD on 03/23; All test results are final unless otherwise noted. Cepheid SARS/FLU/RSV RT-PCR [facility] Ordered by Maya Barron MD on 03/23/2021 Collected: 03/23/2021 Reported: 03/23/2021 07:54 FLUABV+SARS-CoV-2+RSV Pnl Resp ТАТЬЯНА+probe See Note None Note: NORMAL RESULT IS "Not Detected"Cep heid SARS-CoV-2,FLU/RSV is Multiplex real time RT-PCRNegative results do not preclude SARS-COV-2, influenza orRSV infection and should not be used as the sole basis fortreatment or other patient management decisions.False negative results may occur if virus is present atlevels below the analytical limit of detection.This test has been authorized by FDA under an EUA for use bymimbres memorial hospitalhoriR&M Engineeringpdflozhtjnej77223-7PPVA-rvs CoV RNA Resp Ql ТАТЬЯНА+yxgonMIIVXSAASJZ-NJF-5 NOT [id number]-AQY-4 NOT [id number] RNA Resp Ql ТАТЬЯНА+probeLNNFLUAInfluenza A Not Det [id number] A Not [id number] RNA Resp Ql ТАТЬЯНА+probeLNNINBInfluenza B Not [id number] B Not Tkgspvid13283- 2RSV RNA Resp Ql ТАТЬЯНА+probeLNNRSVRSV Not [id number] Not Detected Reviewed by Maya Barron MD on 03/23; All test results are final unless otherwise noted. Reported Physicians [facility] Ordered by Maya Barron MD on 03/23/2021 Collected: 03/23/2021 Reported: 03/23/2021 07:54 Reported Physicians See Note None Note: Reported Physicians:Ordering: Dheeraj PorteroAttending: Dedrick TeranakwaoAdmitting: Dheeraj TeranoCopy To: Adam Pardo To: Maya Barron Reviewed by Maya Barron MD on 03/23; All test results are final unless otherwise noted. MAGNESIUM [facility] Ordered by Maya Barron MD on 03/23/2021 Collected: 03/23/2021 Reported: 03/23/2021 06:10 Magnesium SerPl-mCnc 2.0 MilliGramsPerDeciLiter_[Mass_Concentration_Units] (1.3-2.7) N (Normal) Note: Responsible Observer: Magnesium Ma gnesium 400.3300 (G) Reviewed by Maya Barron MD on 03/23; All test results are final unless otherwise noted. SED RATE [facility] Ordered by Maya Barron MD on 03/23/2021 Collected: 03/23/2021 Reported: 03/23/2021 06:15 ESR Bld Qn Westrgrn 38 (0-20) H (High) Note: @Reenter manual test result: 38@by Claudia Tello at 03/23/21 0614.Responsible Observer: SED RATE SED RATE 100.6400 (C) Reviewed by Maya Barron MD on 03/23; All test results are final unless otherwise noted. Reported Physicians [facility] Ordered by Maya Barron MD on 03/23/2021 Collected: 03/23/2021 Reported: 03/23/2021 06:15 Reported Physicians See Note None Note: Reported Physicians:Ordering: Math is, TimothyAttending: PardoAdam bauer To: Maya Barron Reviewed by Maya Barron MD on 03/23; All test results are final unless otherwise noted. Prothrombin Time & INR [facility] Ordered by Maya Barron MD on 03/23/2021 Collected: 03/23/2021 Reported: 03/23/2021 07:21 INR 1.0 (0.9-1.1) N (Normal) Note: THE INR IS OPERATIONALLY DEFINED F OR FRESH PLASMA FROMPATIENTS STABILIZED ON ORAL ANTICOAGULANTS.ROUTINE ANTICOAGULANT THERAPY 2.0-3.0RECURRENT SYSTEMIC EMBOLISM/HEART VALVE REPLACEMENT 2.5-3.5Responsible Observer: INR INR 200.0400 (A) Prothrombin Time (Patient) 10.3 second (9.6-12.3) N (Normal) Note: Responsible Observer: PT Prothromb in Time 200.0300 (A) Reviewed by Maya Barron MD on 03/23; All test results are final unless otherwise noted. LDH [facility] Ordered by Maya Barron MD on 03/23/2021 Collected: 03/23/2021 Reported: 03/23/2021 07:43 LDH SerPl-cCnc 251 enzyme_unit_per_liter (120-246) H (High) Note: Responsible Observer: LDH LDH 400 .2100 (G) Reviewed by Maya Barron MD on 03/23; All test results are final unless otherwise noted. Reported Physicians [facility] Ordered by Maya Barron MD on 03/23/2021 Collected: 03/23/2021 Reported: 03/23/2021 08:11 Reported Physicians See Note None Note: Reported Physicians:Ordering: Maya AlvarengaAttending: Hung Teranmitting: Dileep Teran To: Choco Pardo Reviewed by Maya Barron MD on 03/23; All test results are final unless otherwise noted. CMP [facility] Ordered by Maya Barron MD on 03/23/2021 Collected: 03/23/2021 Reported: 03/23/2021 06:10 ALT SerPl w P-5'-P-cCnc 15 enzyme_unit_per_liter (10-49) N (Normal) Note: Responsible Observer: SGPT/ALT SGP T/ALT 400.1750 (G) Calcium SerPl-mCnc 8.3 MilliGramsPerDeciLiter_[Mass_Concentration_Units] (8.5-10.1) L (Low) Note: Responsible Observer: Calcium Calc ium 400.2500 (G) Bilirub SerPl-mCnc 0.3 MilliGramsPerDeciLiter_[Mass_Concentration_Units] (0.3-1.2) N (Normal) Note: Responsible Observer: T KELLIE Total Bilirubin 400.2600 (G) CO2 SerPl-sCnc 23 MilliMolesPerLiter_[Substance_Concentration_Units] (20-31) N (Normal) Note: Responsible Observer: CO2 Carbon D ioxide 400.1400 (G) Chloride SerPl-sCnc 113 MilliMolesPerLiter_[Substance_Concentration_Units] (99-109) H (High) Note: Responsible Observer: Chloride Chl oride 400.1250 (G) Glucose SerPl-mCnc 98 MilliGramsPerDeciLiter_[Mass_Concentration_Units] (74-106) N (Normal) Note: Responsible Observer: Glucose Gluc ose 400.1500 (G) Potassium SerPl-sCnc 3.4 MilliMolesPerLiter_[Substance_Concentration_Units] (3.5-5.5) L (Low) Note: Responsible Observer: K Potassium 400.1210 (G) Prot SerPl-mCnc 6.4 GramsPerDeciLiter_[Mass_Concentration_Units] (5.7-8.2) N (Normal) Note: Responsible Observer: TP Total Pro tein 400.2800 (G) Sodium SerPl-sCnc 140 MilliMolesPerLiter_[Substance_Concentration_Units] (132-146) N (Normal) Note: Responsible Observer: Sodium Sodiu m 400.1100 (G) AST SerPl w P-5'-P-cCnc 18 enzyme_unit_per_liter (0-33) N (Normal) Note: Responsible Observer: SGOT / AST S GOT / AST 400.1900 (G) BUN SerPl-mCnc 7 MilliGramsPerDeciLiter_[Mass_Concentration_Units] (9-23) L (Low) Note: Responsible Observer: BUN Blood Ur ea Nitrogen 400.1000 (G) Anion Gap SerPl-sCnc 7 MilliMolesPerLiter_[Substance_Concentration_Units] (8-16) L (Low) Note: Responsible Observer: ANION GAP AN ION GAP 400.1402 (E) Albumin SerPl BCP-mCnc 2.4 GramsPerDeciLiter_[Mass_Concentration_Units] (3.2-4.8) L (Low) Note: Responsible Observer: Albumin Al[place] min 400.2700 (G) ALP SerPl-cCnc 204 enzyme_unit_per_liter (45-129) H (High) Note: Responsible Observer: ALP Alkaline Phosphatase 400.2000 (G) GFR/BSA.pred SerPlBld-ArVRat Greater Than 60 (ABOVE 60) None Note: Responsible Observer: GFR Glomerul ar Filt Rate Calc 400.1605 (D) Creatinine 0.4 MilliGramsPerDeciLiter_[Mass_Concentration_Units] (0.5-1.1) L (Low) Note: Responsible Observer: Creatinine C reatinine 400.1600 (G) Reviewed by Maya Barron MD on 03/23; All test results are final unless otherwise noted. CBC W AUTO DIFF [facility] Ordered by Maya Barron MD on 03/23/2021 Collected: 03/23/2021 Reported: 03/23/2021 06:15 MCV BldCo Auto 81 FemtoLiter_[SI_Volume_Units] (80-96) N (Normal) Note: Responsible Observer: MCV MCV 100 .0600 (B) RDW RBC Auto 15 percent (11-15) N (Normal) Note: Responsible Observer: RDW RDW 100 .0900 (B) Manual diff Bld NO None Note: Responsible Observer: CBC Manual D ifferential Added 100.1990 (B) PMV Bld 9.3 FemtoLiter_[SI_Volume_Units] (9.1-13.1) N (Normal) Note: Responsible Observer: MPV MPV 100 .1100 (B) Imm Granulocytes Bld Ql Auto See Note (0-2) N (Normal) Note: [id number] Ob server support technician: IG% IG% 100.1375 (B) Hct VFr Bld Auto 32.3 percent (37-47) L (Low) Note: Responsible Observer: HEMATOCRIT H EMATOCRIT 100.0500 (B) MCHC BldCo-mCnc 32 GramsPerDeciLiter_[Mass_Concentration_Units] (33-37) L (Low) Note: Responsible Observer: MCHC MCHC 1 00.0800 (B) Imm Granulocytes # Bld Auto 0.1 Unit (0-0.1) None Note: Responsible Observer: IG# IG# 100 .1400 (B) Monocytes/leuk NFr Bld Auto 8.4 percent (4-12) N (Normal) Note: Responsible Observer: MONO % MONO % 100.1225 (B) Hgb Bld-sCnc 10.3 GramsPerDeciLiter_[Mass_Concentration_Units] (10.7-15.4) L (Low) Note: Responsible Observer: HGB HEMOGLOB IN 100.0400 (B) WBC # Bld Auto 10.0 ThousandsPerMicroLiter_[Number_Concentration_Units] (4.45-10 .71) N (Normal) Note: Responsible Observer: WBC WHITE BL OOD COUNT 100.0100 (E) Basophils # Bld Auto 0.0 Unit (0.0-0.2) N (Normal) Note: Responsible Observer: BASO # BASO# 100.1350 (B) Basophils/leuk NFr Bld Auto 0.3 percent (0.4-1.3) L (Low) Note: Responsible Observer: BASO % BASO % 100.1325 (B) Eosinophil # Bld Auto 0.2 Unit (0.0-0.5) N (Normal) Note: Responsible Observer: EOS # EOS# 100.1300 (D) Eosinophil/leuk NFr Bld Auto 2.1 percent (0-7) N (Normal) Note: Responsible Observer: EOS % EOS % 100.1275 (B) Lymphocytes # Bld Auto 2.4 Unit (0.6-4.6) N (Normal) Note: Responsible Observer: LYMPH # LYMP H# 100.1200 (B) Lymphocytes/leuk NFr Bld Auto 23.6 percent (14-46) N (Normal) Note: Responsible Observer: LYMPH % LYMP H % 100.1175 (B) Monocytes # Bld Auto 0.8 Unit (0.2-1.2) N (Normal) Note: Responsible Observer: MONO # MONO# 100.1250 (C) Neutrophils # Bld Auto 6.5 Unit (1.7-7.6) N (Normal) Note: Responsible Observer: NEUT# NEUT# 100.1150 (B) Neutrophils/leuk NFr Bld Auto 65.0 percent (41-77) N (Normal) Note: Responsible Observer: NEUT% NEUT% 100.1125 (B) Platelet # Bld Auto 258 ThousandsPerMicroLiter_[Number_Concentration_Units] (130-472 ) N (Normal) Note: Responsible Observer: PLATELET COU NT PLATELET COUNT 100.1000 (D) MCH RBC Qn Auto 26 PicoGram_[SI_Mass_Units] (27-31) L (Low) Note: Responsible Observer: MCH MCH 100 .0700 (B) RBC # Bld Auto 3.99 MillionsPerMicroLiter_[Number_Concentration_Units] (4.20-5.4 0) L (Low) Note: Responsible Observer: RBC Red Bloo d Count 100.0300 (B) NUCLEATED RED BLOOD CELL# 0 Unit None Note: Responsible Observer: NRBC# NUCLEA VICTOR M RBC 100.1362 (A) NUCLEATED RED BLOOD CELL 0 percent None Note: Responsible Observer: NRBC% NRBC% 100.1360 (B) Reviewed by Maya Barron MD on 03/23; All test results are final unless otherwise noted. VB12 [facility] Ordered by Maya Barron MD on 03/23/2021 Collected: 03/23/2021 Reported: 03/23/2021 06:46 Vitamin B12 388 PicoGramsPerMilliLiter_[Mass_Concentration_Units] (211-911) N (Normal) Note: Responsible Observer: Vitamin B12 Vitamin B12 500.1105 (C) Reviewed by Maya Barron MD on 03/23; All test results are final unless otherwise noted. Reported Physicians [facility] Ordered by Maya Barron MD on 03/23/2021 Collected: 03/23/2021 Reported: 03/23/2021 06:46 Reported Physicians See Note None Note: Reported Physicians:Ordering: Choco KaurAttending: Adam Pardo To: Maya Barron Reviewed by Maya Barron MD on 03/23; All test results are final unless otherwise noted. PTT [facility] Ordered by Maya Barron MD on 03/23/2021 Collected: 03/23/2021 Reported: 03/23/2021 07:21 Screen aPTT 25.0 second (22.7-31.6) N (Normal) Note: Responsible Observer: PTT PTT 200 .0500 (A) Reviewed by Maya Barron MD on 03/23; All test results are final unless otherwise noted. URIC ACID [facility] Ordered by Maya Barron MD on 03/23/2021 Collected: 03/23/2021 Reported: 03/23/2021 07:43 Urate SerPl-mCnc 2.1 MilliGramsPerDeciLiter_[Mass_Concentration_Units] (3.3-8.8) L (Low) Note: Responsible Observer: Uric Acid Ur ic Acid 400.3200 (G) Reviewed by Maya Barron MD on 03/23; All test results are final unless otherwise noted. Reported Physicians [facility] Ordered by Maya Barron MD on 03/23/2021 Collected: 03/23/2021 Reported: 03/23/2021 07:44 Reported Physicians See Note None Note: Reported Physicians:Ordering: Maya AlvarengaAttending: Tramaine PardoothyCopy To: Choco Pardo Reviewed by Maya Barron MD on 03/23; All test results are final unless otherwise noted. FREE T4 (LAB) [facility] Ordered by Maya Barron MD on 03/23/2021 Collected: 03/23/2021 Reported: 03/23/2021 06:10 T4 Free SerPl-mCnc 0.93 NanoGramsPerDeciLiter_[Mass_Concentration_Units] (0.89-1.76) N (Normal) Note: Responsible Observer: FREE T4 Free Thyroxine 600.7005 (D) Reviewed by Maya Barron MD on 03/23; All test results are final unless otherwise noted. Reported Physicians [facility] Ordered by Maya Barron MD on 03/23/2021 Collected: 03/23/2021 Reported: 03/23/2021 06:10 Reported Physicians See Note None Note: Reported Physicians:Ordering: Math is, TimothyAttending: Pardo, TimothyCopy To: Maya Barron Reviewed by Maya Barron MD on 03/23; All test results are final unless otherwise noted. CRP, C-REACTIVE PROTEIN [facility] Ordered by Maya Barron MD on 03/23/2021 Collected: 03/23/2021 Reported: 03/23/2021 06:10 CRP SerPl-mCnc 18.9 MilliGramsPerLiter_[Mass_Concentration_Units] (0.0-5.0) H (High) Note: Responsible Observer: CRP C-Reacti ve Protein 401.4355 (H) Reviewed by Maya Barron MD on 03/23; All test results are final unless otherwise noted. Reported Physicians [facility] Ordered by Maya Barron MD on 03/23/2021 Collected: 03/23/2021 Reported: 03/23/2021 06:10 Reported Physicians See Note None Note: Reported Physicians:Ordering: Math is, TimothyAttending: Pardo, TimothyCopy To: Maya Barron Reviewed by Maya aBrron MD on 03/23; All test results are final unless otherwise noted. TSH [facility] Ordered by Maya Barron MD on 03/23/2021 Collected: 03/23/2021 Reported: 03/23/2021 06:10 TSH SerPl DL<=0.005 mIU/L-aCnc 2.43 MicroInternationalUnitsPerMilliLiter_[Arbitrary_Con (0.35-5. 50) N (Normal) Note: Responsible Observer: TSH TSH 600 .7055 (D) Reviewed by Maya Barron MD on 03/23; All test results are final unless otherwise noted. Reported Physicians [facility] Ordered by Maya Barron MD on 03/23/2021 Collected: 03/23/2021 Reported: 03/23/2021 06:10 Reported Physicians See Note None Note: Reported Physicians:Ordering: Math is, TimothyAttending: Adam Pardo To: Maya Barron Reviewed by Maya Barron MD on 03/23; All test results are final unless otherwise noted. MAGNESIUM [facility] Ordered by Maya Barron MD on 03/23/2021 Collected: 03/23/2021 Reported: 03/23/2021 07:43 Magnesium SerPl-mCnc 2.1 MilliGramsPerDeciLiter_[Mass_Concentration_Units] (1.3-2.7) N (Normal) Note: Responsible Observer: Magnesium Ma gnesium 400.3300 (G) Reviewed by Maya Barron MD on 03/23; All test results are final unless otherwise noted. Reported Physicians [facility] Ordered by Maya Barron MD on 03/23/2021 Collected: 03/23/2021 Reported: 03/23/2021 07:44 Reported Physicians See Note None Note: Reported Physicians:Ordering: Maya AlvarengaAttending: Choco PardoCopyifan To: Choco Pardo Reviewed by Maya Barron MD on 03/23; All test results are final unless otherwise noted. MANUAL DIFF [facility] Ordered by Maya Barron MD on 03/21/2021 Collected: 03/21/2021 Reported: 03/21/2021 07:24 MANUAL DIFF See Note None Note: NOTES OTHER/NOT INTERPRETED Basophils # Bld Manual 1 %Cells counted 100 Eosinophil # Bld Manual 1 %Lymphocytes # Bld Manual 15 %Monocytes # Bld Manual 7 %Morphology Bld-Imp APPEARS NORMAL Neutrophils # Bld Manual 76 %Platelet # Bld Est APPEARS NORMAL @03/21/21 0654: MANUAL DIFF added. RFLXG = DIFF.Responsible Observer: TOTAL CELLS TOTAL CELLS COUNTED 100.2105 (A) Reviewed by Maya Barron MD on 03/21; All test results are final unless otherwise noted. Reported Physicians [facility] Ordered by Maya Barron MD on 03/21/2021 Collected: 03/21/2021 Reported: 03/21/2021 07:24 Reported Physicians See Note None Note: Reported Physicians:Ordering: Maya AlvarengaAttending: Maya BarronAdmitting: Maya Barron Reviewed by Maya Barron MD on 03/21; All test results are final unless otherwise noted. CBC W AUTO DIFF [facility] Ordered by Maya Barron MD on 03/21/2021 Collected: 03/21/2021 Reported: 03/21/2021 07:24 MCV BldCo Auto 80 FemtoLiter_[SI_Volume_Units] (80-96) N (Normal) Note: Responsible Observer: MCV MCV 100 .0600 (B) RDW RBC Auto 14 percent (11-15) N (Normal) Note: Responsible Observer: RDW RDW 100 .0900 (B) Manual diff Bld Manual Diff Added None Note: Responsible Observer: CBC Manual D ifferential Added 100.1990 (B) PMV Bld 9.9 FemtoLiter_[SI_Volume_Units] (9.1-13.1) N (Normal) Note: Responsible Observer: MPV MPV 100 .1100 (B) Imm Granulocytes Bld Ql Auto See Note (0-2) N (Normal) Note: [id number] Ob server support technician: IG% IG% 100.1375 (B) Hct VFr Bld Auto 30.6 percent (37-47) L (Low) Note: Responsible Observer: HEMATOCRIT H EMATOCRIT 100.0500 (B) MCHC BldCo-mCnc 31 GramsPerDeciLiter_[Mass_Concentration_Units] (33-37) L (Low) Note: Responsible Observer: MCHC MCHC 1 00.0800 (B) Imm Granulocytes # Bld Auto 0.2 Unit (0-0.1) None Note: Responsible Observer: IG# IG# 100 .1400 (B) Monocytes/leuk NFr Bld Auto 8.4 percent (4-12) N (Normal) Note: Responsible Observer: MONO % MONO % 100.1225 (B) Hgb Bld-sCnc 9.6 GramsPerDeciLiter_[Mass_Concentration_Units] (10.7-15.4) L (Low) Note: Responsible Observer: HGB HEMOGLOB IN 100.0400 (B) WBC # Bld Auto 15.7 ThousandsPerMicroLiter_[Number_Concentration_Units] (4.45-10 .71) H (High) Note: Responsible Observer: WBC WHITE BL OOD COUNT 100.0100 (E) Basophils # Bld Auto 0.1 Unit (0.0-0.2) N (Normal) Note: Responsible Observer: BASO # BASO# 100.1350 (B) Basophils/leuk NFr Bld Auto 0.3 percent (0.4-1.3) L (Low) Note: Responsible Observer: BASO % BASO % 100.1325 (B) Eosinophil # Bld Auto 0.1 Unit (0.0-0.5) N (Normal) Note: Responsible Observer: EOS # EOS# 100.1300 (D) Eosinophil/leuk NFr Bld Auto 0.8 percent (0-7) N (Normal) Note: Responsible Observer: EOS % EOS % 100.1275 (B) Lymphocytes # Bld Auto 2.9 Unit (0.6-4.6) N (Normal) Note: Responsible Observer: LYMPH # LYMP H# 100.1200 (B) Lymphocytes/leuk NFr Bld Auto 18.7 percent (14-46) N (Normal) Note: Responsible Observer: LYMPH % LYMP H % 100.1175 (B) Monocytes # Bld Auto 1.3 Unit (0.2-1.2) H (High) Note: Responsible Observer: MONO # MONO# 100.1250 (C) Neutrophils # Bld Auto 11.1 Unit (1.7-7.6) H (High) Note: Responsible Observer: NEUT# NEUT# 100.1150 (B) Neutrophils/leuk NFr Bld Auto 70.8 percent (41-77) N (Normal) Note: Responsible Observer: NEUT% NEUT% 100.1125 (B) Platelet # Bld Auto 233 ThousandsPerMicroLiter_[Number_Concentration_Units] (130-472 ) N (Normal) Note: Responsible Observer: PLATELET COU NT PLATELET COUNT 100.1000 (D) MCH RBC Qn Auto 25 PicoGram_[SI_Mass_Units] (27-31) L (Low) Note: Responsible Observer: MCH MCH 100 .0700 (B) RBC # Bld Auto 3.84 MillionsPerMicroLiter_[Number_Concentration_Units] (4.20-5.4 0) L (Low) Note: Responsible Observer: RBC Red Bloo d Count 100.0300 (B) NUCLEATED RED BLOOD CELL# 0 Unit None Note: Responsible Observer: NRBC# NUCLEA VICTOR M RBC 100.1362 (A) NUCLEATED RED BLOOD CELL 0 percent None Note: Responsible Observer: NRBC% NRBC% 100.1360 (B) NOTES See Note None Note: @03/21/21 0654: MANUAL DIFF added. RFLXG = DIFF. Reviewed by Maya Barron MD on 03/21; All test results are final unless otherwise noted. Reported Physicians [facility] Ordered by Maya Barron MD on 03/21/2021 Collected: 03/21/2021 Reported: 03/21/2021 07:24 Reported Physicians See Note None Note: Reported Physicians:Ordering: Maya AlvarengaAttending: Maya BarronAdmitting: Maya Barron Reviewed by Maya Barron MD on 03/21; All test results are final unless otherwise noted. Cepheid SARS/FLU/RSV RT-PCR [facility] Ordered by Maya Barron MD on 03/20/2021 Collected: 03/20/2021 Reported: 03/20/2021 11:22 FLUABV+SARS-CoV-2+RSV Pnl Resp ТАТЬЯНА+probe See Note None Note: NORMAL RESULT IS "Not Detected"Cep heid SARS-CoV-2,FLU/RSV is Multiplex real time RT-PCRNegative results do not preclude SARS-COV-2, influenza orRSV infection and should not be used as the sole basis fortreatment or other patient management decisions.False negative results may occur if virus is present atlevels below the analytical limit of detection.This test has been authorized by FDA under an EUA for use byDFT MicrosystemshoriR&M Engineeringstjjpoeutlwu06224-7PLGP-xam CoV RNA Resp Ql ТАТЬЯНА+buzubMRQLGRADJPD-WZQ-7 NOT [id number]-JNE-1 NOT [id number] RNA Resp Ql ТАТЬЯНА+probeLNNFLUAInfluenza A Not Det [id number] A Not Buxubhoe82210-9PPTFV RNA Resp Ql ТАТЬЯНА+probeLNNINBInfluenza B Not [id number] B Not Fgiofafn69489- 2RSV RNA Resp Ql ТАТЬЯНА+probeLNNRSVRSV Not [id number] Not Detected Reviewed by Maya Barron MD on 03/20; All test results are final unless otherwise noted. Reported Physicians [facility] Ordered by Maya Barron MD on 03/20/2021 Collected: 03/20/2021 Reported: 03/20/2021 11:22 Reported Physicians See Note None Note: Reported Physicians:Ordering: Maya AlvarengaAttending: Maya BarronAdmitting: Maya Barron Reviewed by Maya Barron MD on 03/20; All test results are final unless otherwise noted. CBC W AUTO DIFF [facility] Ordered by Maya Barron MD on 03/20/2021 Collected: 03/20/2021 Reported: 03/20/2021 10:18 MCV BldCo Auto 81 FemtoLiter_[SI_Volume_Units] (80-96) N (Normal) Note: Responsible Observer: MCV MCV 100 .0600 (B) RDW RBC Auto 14 percent (11-15) N (Normal) Note: Responsible Observer: RDW RDW 100 .0900 (B) Manual diff Bld Manual Diff Added None Note: Responsible Observer: CBC Manual D ifferential Added 100.1990 (B) PMV Bld 9.7 FemtoLiter_[SI_Volume_Units] (9.1-13.1) N (Normal) Note: Responsible Observer: MPV MPV 100 .1100 (B) Imm Granulocytes Bld Ql Auto See Note (0-2) N (Normal) Note: [id number] Ob server support technician: IG% IG% 100.1375 (B) Hct VFr Bld Auto 34.0 percent (37-47) L (Low) Note: Responsible Observer: HEMATOCRIT H EMATOCRIT 100.0500 (B) MCHC BldCo-mCnc 31 GramsPerDeciLiter_[Mass_Concentration_Units] (33-37) L (Low) Note: Responsible Observer: MCHC MCHC 1 00.0800 (B) Imm Granulocytes # Bld Auto 0.3 Unit (0-0.1) None Note: Responsible Observer: IG# IG# 100 .1400 (B) Monocytes/leuk NFr Bld Auto 9.4 percent (4-12) N (Normal) Note: Responsible Observer: MONO % MONO % 100.1225 (B) Hgb Bld-sCnc 10.6 GramsPerDeciLiter_[Mass_Concentration_Units] (10.7-15.4) L (Low) Note: Responsible Observer: HGB HEMOGLOB IN 100.0400 (B) WBC # Bld Auto 14.0 ThousandsPerMicroLiter_[Number_Concentration_Units] (4.45-10 .71) H (High) Note: Responsible Observer: WBC WHITE BL OOD COUNT 100.0100 (E) Basophils # Bld Auto 0.1 Unit (0.0-0.2) N (Normal) Note: Responsible Observer: BASO # BASO# 100.1350 (B) Basophils/leuk NFr Bld Auto 0.4 percent (0.4-1.3) N (Normal) Note: Responsible Observer: BASO % BASO % 100.1325 (B) Eosinophil # Bld Auto 0.1 Unit (0.0-0.5) N (Normal) Note: Responsible Observer: EOS # EOS# 100.1300 (D) Eosinophil/leuk NFr Bld Auto 0.6 percent (0-7) N (Normal) Note: Responsible Observer: EOS % EOS % 100.1275 (B) Lymphocytes # Bld Auto 3.4 Unit (0.6-4.6) N (Normal) Note: Responsible Observer: LYMPH # LYMP H# 100.1200 (B) Lymphocytes/leuk NFr Bld Auto 24.3 percent (14-46) N (Normal) Note: Responsible Observer: LYMPH % LYMP H % 100.1175 (B) Monocytes # Bld Auto 1.3 Unit (0.2-1.2) H (High) Note: Responsible Observer: MONO # MONO# 100.1250 (C) Neutrophils # Bld Auto 8.9 Unit (1.7-7.6) H (High) Note: Responsible Observer: NEUT# NEUT# 100.1150 (B) Neutrophils/leuk NFr Bld Auto 63.4 percent (41-77) N (Normal) Note: Responsible Observer: NEUT% NEUT% 100.1125 (B) Platelet # Bld Auto 274 ThousandsPerMicroLiter_[Number_Concentration_Units] (130-472 ) N (Normal) Note: Responsible Observer: PLATELET COU NT PLATELET COUNT 100.1000 (D) MCH RBC Qn Auto 25 PicoGram_[SI_Mass_Units] (27-31) L (Low) Note: Responsible Observer: MCH MCH 100 .0700 (B) RBC # Bld Auto 4.19 MillionsPerMicroLiter_[Number_Concentration_Units] (4.20-5.4 0) L (Low) Note: Responsible Observer: RBC Red Bloo d Count 100.0300 (B) NUCLEATED RED BLOOD CELL# 0 Unit None Note: Responsible Observer: NRBC# NUCLEA VICTOR M RBC 100.1362 (A) NUCLEATED RED BLOOD CELL 0 percent None Note: Responsible Observer: NRBC% NRBC% 100.1360 (B) NOTES See Note None Note: @03/20/21 0939: MANUAL DIFF added. RFLXG = DIFF. Reviewed by Maya Barron MD on 03/20; All test results are final unless otherwise noted. Reported Physicians [facility] Ordered by Maya Barron MD on 03/20/2021 Collected: 03/20/2021 Reported: 03/20/2021 10:18 Reported Physicians See Note None Note: Reported Physicians:Ordering: Maya AlvarengaAttending: Maya BarronAdmitting: Maya Barron Reviewed by Maya Barron MD on 03/20; All test results are final unless otherwise noted. MANUAL DIFF [facility] Ordered by Maya Barron MD on 03/20/2021 Collected: 03/20/2021 Reported: 03/20/2021 10:18 MANUAL DIFF See Note None Note: NOTES OTHER/NOT INTERPRETED Cells counted 100 Eosinophil # Bld Manual 1 %Lymphocytes # Bld Manual 37 %Monocytes # Bld Manual 7 %Morphology Bld-Imp APPEARS NORMAL Neutrophils # Bld Manual 55 %Platelet # Bld Est APPEARS NORMAL @03/20/21 0939: MANUAL DIFF added. RFLXG = DIFF.Responsible Observer: TOTAL CELLS TOTAL CELLS COUNTED 100.2105 (A) Reviewed by Maya Barron MD on 03/20; All test results are final unless otherwise noted. Reported Physicians [facility] Ordered by Maya Barron MD on 03/20/2021 Collected: 03/20/2021 Reported: 03/20/2021 10:18 Reported Physicians See Note None Note: Reported Physicians:Ordering: Maya AlvarengaAttending: Maya BarronAdmitting: Maya Barron Reviewed by Maya Barron MD on 03/20; All test results are final unless otherwise noted. Type and Screen [facility] Ordered by Maya Barron MD on 03/20/2021 Collected: 03/20/2021 Reported: 03/20/2021 10:37 Blood bank studies Yes None Note: Responsible Observer: Prev. Histor y? Previous History? 100.0800 (A) Antibody Screen NEGATIVE None Note: Responsible Observer: Antibody Scr een Antibody Screen 200.0000 (C) Blood Type See Note None Note: OPO PositiveLResponsible Observer: Blood Type Blood Type 110.0950 (C) NOTES See Note None Note: :: YTransfused within 90 d ays?: NPre Op? (IF Yes, give date): N Reviewed by Maya Barron MD on 03/20; All test results are final unless otherwise noted. Reported Physicians [facility] Ordered by Maya Barron MD on 03/20/2021 Collected: 03/20/2021 Reported: 03/20/2021 10:37 Reported Physicians See Note None Note: Reported Physicians:Ordering: Maya AlvarengaAttending: Maya BarronAdmitting: Maya Barron Reviewed by Maya Barron MD on 03/20; All test results are final unless otherwise noted. CBC W AUTO DIFF [facility] Ordered by Maya Barron MD on 03/17/2021 Collected: 03/17/2021 Reported: 03/17/2021 15:30 MCV BldCo Auto 80 FemtoLiter_[SI_Volume_Units] (80-96) N (Normal) Note: Responsible Observer: MCV MCV 100 .0600 (B) RDW RBC Auto 14 percent (11-15) N (Normal) Note: Responsible Observer: RDW RDW 100 .0900 (B) Manual diff Bld NO None Note: Responsible Observer: CBC Manual D ifferential Added 100.1990 (B) PMV Bld 9.3 FemtoLiter_[SI_Volume_Units] (9.1-13.1) N (Normal) Note: Responsible Observer: MPV MPV 100 .1100 (B) Imm Granulocytes Bld Ql Auto See Note (0-2) N (Normal) Note: [id number] Ob server support technician: IG% IG% 100.1375 (B) Hct VFr Bld Auto 32.8 percent (37-47) L (Low) Note: Responsible Observer: HEMATOCRIT H EMATOCRIT 100.0500 (B) MCHC BldCo-mCnc 32 GramsPerDeciLiter_[Mass_Concentration_Units] (33-37) L (Low) Note: Responsible Observer: MCHC MCHC 1 00.0800 (B) Imm Granulocytes # Bld Auto 0.1 Unit (0-0.1) None Note: Responsible Observer: IG# IG# 100 .1400 (B) Monocytes/leuk NFr Bld Auto 8.7 percent (4-12) N (Normal) Note: Responsible Observer: MONO % MONO % 100.1225 (B) Hgb Bld-sCnc 10.4 GramsPerDeciLiter_[Mass_Concentration_Units] (10.7-15.4) L (Low) Note: Responsible Observer: HGB HEMOGLOB IN 100.0400 (B) WBC # Bld Auto 11.5 ThousandsPerMicroLiter_[Number_Concentration_Units] (4.45-10 .71) H (High) Note: Responsible Observer: WBC WHITE BL OOD COUNT 100.0100 (E) Basophils # Bld Auto 0.0 Unit (0.0-0.2) N (Normal) Note: Responsible Observer: BASO # BASO# 100.1350 (B) Basophils/leuk NFr Bld Auto 0.3 percent (0.4-1.3) L (Low) Note: Responsible Observer: BASO % BASO % 100.1325 (B) Eosinophil # Bld Auto 0.1 Unit (0.0-0.5) N (Normal) Note: Responsible Observer: EOS # EOS# 100.1300 (D) Eosinophil/leuk NFr Bld Auto 0.8 percent (0-7) N (Normal) Note: Responsible Observer: EOS % EOS % 100.1275 (B) Lymphocytes # Bld Auto 1.9 Unit (0.6-4.6) N (Normal) Note: Responsible Observer: LYMPH # LYMP H# 100.1200 (B) Lymphocytes/leuk NFr Bld Auto 16.7 percent (14-46) N (Normal) Note: Responsible Observer: LYMPH % LYMP H % 100.1175 (B) Monocytes # Bld Auto 1.0 Unit (0.2-1.2) N (Normal) Note: Responsible Observer: MONO # MONO# 100.1250 (C) Neutrophils # Bld Auto 8.3 Unit (1.7-7.6) H (High) Note: Responsible Observer: NEUT# NEUT# 100.1150 (B) Neutrophils/leuk NFr Bld Auto 72.6 percent (41-77) N (Normal) Note: Responsible Observer: NEUT% NEUT% 100.1125 (B) Platelet # Bld Auto 224 ThousandsPerMicroLiter_[Number_Concentration_Units] (130-472 ) N (Normal) Note: Responsible Observer: PLATELET COU NT PLATELET COUNT 100.1000 (D) MCH RBC Qn Auto 25 PicoGram_[SI_Mass_Units] (27-31) L (Low) Note: Responsible Observer: MCH MCH 100 .0700 (B) RBC # Bld Auto 4.12 MillionsPerMicroLiter_[Number_Concentration_Units] (4.20-5.4 0) L (Low) Note: Responsible Observer: RBC Red Bloo d Count 100.0300 (B) NUCLEATED RED BLOOD CELL# 0 Unit None Note: Responsible Observer: NRBC# NUCLEA VICTOR M RBC 100.1362 (A) NUCLEATED RED BLOOD CELL 0 percent None Note: Responsible Observer: NRBC% NRBC% 100.1360 (B) Reviewed by Maya Barron MD on 03/20; All test results are final unless otherwise noted. TROPONIN [facility] Ordered by Maya Barron MD on 03/17/2021 Collected: 03/17/2021 Reported: 03/17/2021 15:52 Troponin I SerPl-mCnc Less Than 0.015 (0.00-0.09) N (Normal) Note: Less than 0.09 NG/ML Negative 0.10 - 0.77 NG/ML High Risk0.78 NG/ML or Greater PositiveThe WHO defined the cutoff (definition for diagnosis of CO)for this method as 0.78 ng/ml.Responsible Observer: Troponin I Troponin I 600.1101 (G) Reviewed by Maya Barron MD on 03/20; All test results are final unless otherwise noted. Reported Physicians [facility] Ordered by Maya Barron MD on 03/17/2021 Collected: 03/17/2021 Reported: 03/17/2021 15:52 Reported Physicians See Note None Note: Reported Physicians:Ordering: Hong LandaverdeAttending: Alon Douglas To: Maya Barron Reviewed by Maya Barron MD on 03/20; All test results are final unless otherwise noted. Cepheid GBS RT-PCR [facility] Ordered by Cat Gutierrez RPA on 02/27/2021 Collected: 02/27/2021 Reported: 02/28/2021 12:50 Cepheid GBS RT-PCR See Note None Note: Cepheid Gene Xpert GBS LB assay is a RT-PCR with fluorogenicdetection of amplified DNA.Normal Result is " No Group B Strep detected "PREGBSNNo Group B strep [id number] Group B strep detected Reviewed by Cat Gutierrez RPA on 02/28; All test results are final unless otherwise noted. Reported Physicians [facility] Ordered by Cat Gutierrez RPA on 02/27/2021 Collected: 02/27/2021 Reported: 02/28/2021 12:50 Reported Physicians See Note None Note: Reported Physicians:Ordering: Cat ConwayAttending: Cat Gutierrez Reviewed by Cat Gutierrez RPA on 02/28; All test results are final unless otherwise noted. TROPONIN T [facility] Ordered by Maya Barron MD on 02/22/2021 Collected: 02/22/2021 Reported: 02/22/2021 00:25 TROPONIN T <0.01 NG/ML (0.00 - 0.10) None Note: TROPONIN T0.1 ng/ml Recommended as the clinical threshold value forThafsa Hussein.Responsible Observer: (LBS) Reviewed by Maya Barron MD on 02/23; All test results are final unless otherwise noted. Reported Physicians [facility] Ordered by Maya Barron MD on 02/22/2021 Collected: 02/22/2021 Reported: 02/22/2021 00:26 Reported Physicians See Note None Note: Reported Physicians:Ordering: HOLLYR IN, RICCARDOAttending: HOLLYRIN, RICCARDOConsulting: Rubén BARRON To: ROBERTO, RICCARDOCopy To: JESSEE MEJIA Reviewed by Maya Barron MD on 02/23; All test results are final unless otherwise noted. COMPREHENSIVE METABOLIC PANEL [facility] Ordered by Maya Barron MD on 02/21/2021 Collected: 02/21/2021 Reported: 02/21/2021 21:47 A/G RATIO 1.5 (0.8 - 2.0) None Note: Responsible Observer: (ABIOLA) AFR AMER GFR >60 mL/min None Note: Male GFR Interprentation 20- 49 yrs >60 mL/min Normal 50-59 yrs >56 mL/min Normal 60-69 yrs >49 mL/min Normal 70-79yrs >42 mL/min Normal 80 and above >35 mL/min Normal Female GFR Interpretation 20-39 yrs >60 mL/min Normal 40-49 yrs >58 mL/min Normal 50-59 yrs >51 mL/min Normal 60-69 yrs >45 mL/min Normal 70-79 yrs >39 mL/min Normal 80 and above >32 mL/min NormalResponsible Observer: (ABIOLA) AGE 20 yrs None Note: Responsible Observer: (ABIOLA) ALBUMIN 3.4 G/DL (3.9 - 5.0) L (Low) Note: Responsible Observer: (DW) ALKALINE PHOS 187 U/L (38 - 126) H (High) Note: Responsible Observer: (DW) ANION GAP 11.0 mmol/L (8.0 - 16.0) None Note: Responsible Observer: (DW) BUN 5 MG/DL (7 - 21) L (Low) Note: Responsible Observer: (DW) BUN/CREAT 13 (8 - 27) None Note: Responsible Observer: (DW) CALCIUM 8.4 MG/DL (8.4 - 10.2) None Note: Responsible Observer: (DW) CHLORIDE 104 mEq/L (98 - 107) None Note: Responsible Observer: (DW) CO2 19 MEQ/L (22 - 30) L (Low) Note: Responsible Observer: (DW) COMPREHENSIVE METABOLIC PANEL See Note None Note: COMPREHENSIVE METABOLIC PANELR esponsible Observer: (DW) CREATININE 0.4 MG/DL (0.7 - 1.5) L (Low) Note: Responsible Observer: (DW) GLOBULIN 2.3 GM/DL (2.4 - 3.2) L (Low) Note: Responsible Observer: (DW) GLUCOSE 75 MG/DL (70 - 99) None Note: Responsible Observer: (DW) NON-AA GFR >60 mL/min None Note: Responsible Observer: (DW) POTASSIUM 3.6 mEq/L (3.6 - 5.0) None Note: Responsible Observer: (DW) SGOT/AST 13 U/L (5 - 40) None Note: Responsible Observer: (DW) SGPT/ALT <5 U/L (7 - 56) L (Low) Note: Responsible Observer: (DW) SODIUM 134 mEq/L (134 - 153) None Note: Responsible Observer: (DW) TOTAL BILI <0.7 MG/DL (0.2 - 1.3) None Note: Responsible Observer: (DW) TOTAL PROTEIN 5.7 G/DL (6.3 - 8.2) L (Low) Note: Responsible Observer: (DW) Reviewed by Maya Barron MD on 02/23; All test results are final unless otherwise noted. Reported Physicians [facility] Ordered by Maya Barron MD on 02/21/2021 Collected: 02/21/2021 Reported: 02/21/2021 21:47 Reported Physicians See Note None Note: Reported Physicians:Ordering: MARCELINO INARIACARDOAttending: ROBERTO, RICCARDOConsulting: MAYA BARRONCopyifan To: JESSEE MEJIACopy To: JESSEE MEJIA Reviewed by Maya Barron MD on 02/23; All test results are final unless otherwise noted. CBC W/AUTOMATED DIFF [facility] Ordered by Maya Barron MD on 02/21/2021 Collected: 02/21/2021 Reported: 02/21/2021 21:20 #BASO 0.02 10\\^3/uL (0.00 - 0.20) None Note: Responsible Observer: (JNL) #EOS 0.03 10\\^3/uL (0.00 - 0.70) None Note: Responsible Observer: (JNL) #IG 0.05 10\\^3/uL (0.00 - 0.10) None Note: Responsible Observer: (JNL) #LYMPH 1.66 10\\^3/uL (0.60 - 3.40) None Note: Responsible Observer: (JNL) #MONO 0.81 10\\^3/uL (0.00 - 0.90) None Note: Responsible Observer: (JNL) #NEUT 6.71 10\\^3/uL (2.00 - 6.90) None Note: Responsible Observer: (JNL) #NRBC 0.00 10\\^3/uL (0.00 - 0.00) None Note: Responsible Observer: (JNL) %IG 0.5 % (0.0 - 0.0) H (High) Note: Responsible Observer: (JNL) %NRBC 0.0 % (0.0 - 0.0) None Note: Responsible Observer: (JNL) BASO 0.2 % (0.0 - 2.5) None Note: Responsible Observer: (JNL) CBC W/AUTOMATED DIFF See Note None Note: COMPLETE BLOOD COUNTResponsibl e Observer: (JNL) EOS 0.3 % (0.0 - 7.0) None Note: Responsible Observer: (JNL) HEMATOCRIT 29.5 % (37.0 - 47.0) L (Low) Note: Responsible Observer: (JNL) HEMOGLOBIN 9.7 g/dL (12.0 - 16.0) L (Low) Note: Responsible Observer: (JNL) LYMPH 17.9 % (25.0 - 40.0) L (Low) Note: Responsible Observer: (JNL) MANUAL DIFF NOT INDICATED None Note: Responsible Observer: (JNL) MCH 26.9 pg (27.0 - 34.0) L (Low) Note: Responsible Observer: (JNL) MCHC 32.9 g/dL (31.0 - 36.0) None Note: Responsible Observer: (JNL) MCV 81.9 fL (81.0 - 101) None Note: Responsible Observer: (JNL) MONO 8.7 % (3.0 - 8.0) H (High) Note: Responsible Observer: (JNL) MPV 9.3 fL (7.4 - 10.4) None Note: Responsible Observer: (JNL) NEUT 72.4 % (37.0 - 80.0) None Note: Responsible Observer: (JNL) PLATELETS 229 10\\^3/uL (150 - 450) None Note: Responsible Observer: (JNL) RBC 3.60 10\\^6/uL (4.20 - 5.40) L (Low) Note: Responsible Observer: (JNL) RBC MORPH NOT INDICATED None Note: Responsible Observer: (JNL) RDW 13.1 % (11.5 - 14.5) None Note: Responsible Observer: (JNL) WBC 9.3 10\\^3/uL (4.2 - 11.0) None Note: Responsible Observer: (JNL) Reviewed by Maya Barron MD on 02/23; All test results are final unless otherwise noted. Reported Physicians [facility] Ordered by Maya Barron MD on 02/21/2021 Collected: 02/21/2021 Reported: 02/21/2021 21:21 Reported Physicians See Note None Note: Reported Physicians:Ordering: MARCELINO INJESSEEAttending: JESESE MEJIAConsulting: Rubén BARRON To: Saleem MEJIA To: JESSEE MEJIA Reviewed by Maya Barron MD on 02/23; All test results are final unless otherwise noted. LIPASE SERUM [facility] Ordered by Maya Barron MD on 02/21/2021 Collected: 02/21/2021 Reported: 02/21/2021 21:42 LIPASE 22 U/L (13 - 60) None Note: Responsible Observer: (ABIOLA) Reviewed by Maya Barron MD on 02/23; All test results are final unless otherwise noted. Reported Physicians [facility] Ordered by Maya Barron MD on 02/21/2021 Collected: 02/21/2021 Reported: 02/21/2021 21:42 Reported Physicians See Note None Note: Reported Physicians:Ordering: TURR IN, RICCARDOAttending: HOLLYRIN, RICCARDOConsulting: Rubén BARRON To: ROBERTO, RICCARDOCopy To: JESSEE MEJIA Reviewed by Maya Barron MD on 02/23; All test results are final unless otherwise noted. TROPONIN T [facility] Ordered by Maya Barron MD on 02/21/2021 Collected: 02/21/2021 Reported: 02/21/2021 21:47 TROPONIN T <0.01 NG/ML (0.00 - 0.10) None Note: TROPONIN T0.1 ng/ml Recommended as the clinical threshold value forTroponin T.Responsible Observer: (ABIOLA) Reviewed by Maya Barron MD on 02/23; All test results are final unless otherwise noted. Reported Physicians [facility] Ordered by Maya Barron MD on 02/21/2021 Collected: 02/21/2021 Reported: 02/21/2021 21:47 Reported Physicians See Note None Note: Reported Physicians:Ordering: TURR IN, RICCARDOAttending: TURRIN, RICCARDOConsulting: Rubén BARRON To: HOLLYRIN, RICCARDOCopy To: JESSEE MEJIA Reviewed by Maya Barron MD on 02/23; All test results are final unless otherwise noted. 1HR GESTATIONAL GLUCOSE (50gm) [facility] Ordered by Maya Barron MD on 01/30/2021 Collected: 01/30/2021 Reported: 01/30/2021 14:23 Glucose 1h p 50 g Glc PO SerPl-mCnc 119 MilliGramsPerDeciLiter_[Mass_Concentration_Units] N (Normal) Note: A 1 hour Glucose Tolerance Test for Gestational Diabetes based on a 50 gm load:The 1-hour glucose level should be less than 140 mg/dlResponsible Observer: 1 HR GEST GLU 1HR GESTATIONAL GLUCOSE 400.6950 (E) Reviewed by Maya Barron MD on 01/31; All test results are final unless otherwise noted. Reported Physicians [facility] Ordered by Maya Barron MD on 01/30/2021 Collected: 01/30/2021 Reported: 01/30/2021 14:23 Reported Physicians See Note None Note: Reported Physicians:Ordering: Cara Alvarengaending: Maya Barron Reviewed by Maya Barron MD on 01/31; All test results are final unless otherwise noted. URINALYSIS [facility] Ordered by Maya Barron MD on 01/30/2021 Collected: 01/30/2021 Reported: 01/30/2021 12:35 Urobilinogen Ur Ql See Note (0.2-1 EU/dl) None Note: 0.2 EU/dl0.2 EU/[id number] E U/dlResponsible Observer: UROBILINOGEN UROBILINOGEN 300.4500 (C) RBC # Ur Strip NEGATIVE (NEGATIVE) None Note: Responsible Observer: BLOOD BLOOD 300.4650 (C) Prot Ur Ql Strip See Note (NEGATIVE) None Note: [id number] ble Observer: PROTEIN PROTEIN 300.3750 (C) Ketones Ur Ql Strip See Note (NEGATIVE) None Note: 15 mg/dL15 mg/[id number] mg/d LResponsible Observer: KETONE KETONE 300.3900 (C) Bilirub Ur Ql Strip.auto See Note (NEGATIVE) None Note: [id number] EResponsible Observer: BILIRUBIN BILIRUBIN 300.4550 (C) Glucose Ur Strip.auto-mCnc NEGATIVE (NEGATIVE) None Note: Responsible Observer: GLUCOSE GLUC OSE 300.3850 (C) Appearance Ur See Note (CLEAR) None Note: CLEARCLEARLCLEARResponsible Observ er: APPEARANCE APPEARANCE 300.3400 (A) Color Ur See Note None Note: YELLOWYELLOWLYELLOWResponsible Obs erver: COLOR COLOR 300.3300 (A) Leukocyte esterase Ur Ql Strip See Note (NEGATIVE) None Note: [id number] E@DO MICRO!!!!Responsible Observer: LEUKOCYTES LEUKOCYTES 300.3575 (C) Nitrite Ur Ql Strip See Note (NEGATIVE) None Note: [id number] EResponsible Observer: NITRITE NITRITE 300.3650 (B) pH Ur Strip 6.5 (5-8) None Note: Responsible Observer: PH PH 300.3 450 (C) Sp Gr Ur Refractometry 1.018 (1.005-1.030) None Note: Responsible Observer: SP GRAVITY U RINE SPECIFIC GRAVITY-MAN 300.3475 (C) URINE MICROSCOPIC ADDED Microscopic Added None Note: Responsible Observer: UA URINE SHAWN ROSCOPIC PENDING 300.4660 (D) NOTES See Note None Note: @01/30/21 1230: UA W/ MICRO added. RFLXG = UMIC.Method of Collection:: Voided Reviewed by Maya Barron MD on 01/31; All test results are final unless otherwise noted. Reported Physicians [facility] Ordered by Maya Barron MD on 01/30/2021 Collected: 01/30/2021 Reported: 01/30/2021 12:36 Reported Physicians See Note None Note: Reported Physicians:Ordering: Maya AlvarengaAttending: Maya Barron Reviewed by Maya Barron MD on 01/31; All test results are final unless otherwise noted. ADD ON MICROSCOPIC [facility] Ordered by Maya Barron MD on 01/30/2021 Collected: 01/30/2021 Reported: 01/30/2021 12:35 ADD ON MICROSCOPIC See Note (0-5) H (High) Note: NOTES OTHER/NOT INTERPRETED Bacteria UrnS Ql Micro MODERATE AMOUNT Bacteria UrnS Ql Micro MODERATE AMOUNT Bacteria UrnS Ql Micro L Bacteria UrnS Ql Micro Bacteria UrnS Ql Micro Bacteria UrnS Ql Micro Bacteria UrnS Ql Micro [id number] Bacteria UrnS Ql Micro Bacteria UrnS Ql Micro MODERATE AMOUNT Cells UrnS Micro MODERATE Cells UrnS Micro MODERATE Cells UrnS Micro MODERATE Cells UrnS Micro L Cells UrnS Micro Cells UrnS Micro Cells UrnS Micro Cells UrnS Micro Cells UrnS Micro Mucous Threads UrnS Ql Micro LARGE AMOUNT Mucous Threads UrnS Ql Micro LARGE AMOUNT Mucous Threads UrnS Ql Micro L Mucous Threads UrnS Ql Micro Mucous Threads UrnS Ql Micro Mucous Threads UrnS Ql Micro Mucous Threads UrnS Ql Micro [id number] Mucous Threads UrnS Ql Micro Mucous Threads UrnS Ql Micro LARGE AMOUNT WBC # Ur Manual 15-20 @01/30/21 1230: UA W/ MICRO added. RFLXG = UMIC.Method of Collection:: VoidedResponsible Observer: WBC WBC 300.5000 (A) Reviewed by Maya Barron MD on 01/31; All test results are final unless otherwise noted. Reported Physicians [facility] Ordered by Maya Barron MD on 01/30/2021 Collected: 01/30/2021 Reported: 01/30/2021 12:36 Reported Physicians See Note None Note: Reported Physicians:Ordering: Cara Alvarengaending: Maya Barron Reviewed by Maya Barron MD on 01/31; All test results are final unless otherwise noted. Urine culture [facility] Ordered by Maya Barron MD on 01/30/2021 Collected: 01/30/2021 Reported: 02/01/2021 06:50 Urine culture result No growth None Reviewed by Maya Barron MD on 02/02; All test results are final unless otherwise noted. Reported Physicians [facility] Ordered by Maya Barron MD on 01/30/2021 Collected: 01/30/2021 Reported: 02/01/2021 06:50 Reported Physicians See Note None Note: Reported Physicians:Ordering: Cara Alvarengaending: Maya Barron Reviewed by Maya Barron MD on 02/02; All test results are final unless otherwise noted. TROPONIN [facility] Ordered by Maya Barron MD on 01/11/2021 Collected: 01/11/2021 Reported: 01/11/2021 17:30 Troponin I SerPl-mCnc Less Than 0.015 (0.00-0.09) N (Normal) Note: Less than 0.09 NG/ML Negative 0.10 - 0.77 NG/ML High Risk0.78 NG/ML or Greater PositiveThe WHO defined the cutoff (definition for diagnosis of CO)for this method as 0.78 ng/ml.Responsible Observer: Troponin I Troponin I 600.1101 (G) NOTES See Note None Note: Test(s)[place] [address] Reviewed by Maya Barron MD on 01/12; All test results are final unless otherwise noted. Reported Physicians [facility] Ordered by Maya Barron MD on 01/11/2021 Collected: 01/11/2021 Reported: 01/11/2021 17:30 Reported Physicians See Note None Note: Reported Physicians:Ordering: Les Vanegas: Fady Raza To: Maya Barron Reviewed by Maya Barron MD on 01/12; All test results are final unless otherwise noted. TSH w/ reflex to Free T4 [facility] Ordered by Maya Barron MD on 01/11/2021 Collected: 01/11/2021 Reported: 01/11/2021 17:30 TSH SerPl DL<=0.005 mIU/L-aCnc 1.05 MicroInternationalUnitsPerMilliLiter_[Arbitrary_Con (0.35-5. 50) N (Normal) Note: Responsible Observer: TSH TSH 600 .7060 (D) NOTES See Note None Note: Test(s)[place] [address] Reviewed by Maya Barron MD on 01/12; All test results are final unless otherwise noted. Reported Physicians [facility] Ordered by Maya Barron MD on 01/11/2021 Collected: 01/11/2021 Reported: 01/11/2021 17:30 Reported Physicians See Note None Note: Reported Physicians:Ordering: Les Vanegas: Fady Raza To: Maya Barron Reviewed by Maya Barron MD on 01/12; All test results are final unless otherwise noted. CBC W AUTO DIFF [facility] Ordered by Maya Barron MD on 01/11/2021 Collected: 01/11/2021 Reported: 01/11/2021 16:12 MCV BldCo Auto 88 FemtoLiter_[SI_Volume_Units] (80-96) N (Normal) Note: Responsible Observer: MCV MCV 100 .0600 (B) RDW RBC Auto 12 percent (11-15) N (Normal) Note: Responsible Observer: RDW RDW 100 .0900 (B) Manual diff Bld NO None Note: Responsible Observer: CBC Manual D ifferential Added 100.1990 (B) PMV Bld 9.1 FemtoLiter_[SI_Volume_Units] (9.1-13.1) N (Normal) Note: Responsible Observer: MPV MPV 100 .1100 (B) Imm Granulocytes Bld Ql Auto See Note (0-2) N (Normal) Note: [id number] Ob server support technician: IG% IG% 100.1375 (B) Hct VFr Bld Auto 28.2 percent (37-47) L (Low) Note: Responsible Observer: HEMATOCRIT H EMATOCRIT 100.0500 (B) MCHC BldCo-mCnc 34 GramsPerDeciLiter_[Mass_Concentration_Units] (33-37) N (Normal) Note: Responsible Observer: MCHC MCHC 1 00.0800 (B) Imm Granulocytes # Bld Auto 0.1 Unit (0-0.1) None Note: Responsible Observer: IG# IG# 100 .1400 (B) Monocytes/leuk NFr Bld Auto 9.0 percent (4-12) N (Normal) Note: Responsible Observer: MONO % MONO % 100.1225 (B) Hgb Bld-sCnc 9.5 GramsPerDeciLiter_[Mass_Concentration_Units] (10.7-15.4) L (Low) Note: Responsible Observer: HGB HEMOGLOB IN 100.0400 (B) WBC # Bld Auto 9.8 ThousandsPerMicroLiter_[Number_Concentration_Units] (4.45-10 .71) N (Normal) Note: Responsible Observer: WBC WHITE BL OOD COUNT 100.0100 (E) Basophils # Bld Auto 0.0 Unit (0.0-0.2) N (Normal) Note: Responsible Observer: BASO # BASO# 100.1350 (B) Basophils/leuk NFr Bld Auto 0.2 percent (0.4-1.3) L (Low) Note: Responsible Observer: BASO % BASO % 100.1325 (B) Eosinophil # Bld Auto 0.1 Unit (0.0-0.5) N (Normal) Note: Responsible Observer: EOS # EOS# 100.1300 (D) Eosinophil/leuk NFr Bld Auto 0.7 percent (0-7) N (Normal) Note: Responsible Observer: EOS % EOS % 100.1275 (B) Lymphocytes # Bld Auto 1.7 Unit (0.6-4.6) N (Normal) Note: Responsible Observer: LYMPH # LYMP H# 100.1200 (B) Lymphocytes/leuk NFr Bld Auto 17.4 percent (14-46) N (Normal) Note: Responsible Observer: LYMPH % LYMP H % 100.1175 (B) Monocytes # Bld Auto 0.9 Unit (0.2-1.2) N (Normal) Note: Responsible Observer: MONO # MONO# 100.1250 (C) Neutrophils # Bld Auto 7.0 Unit (1.7-7.6) N (Normal) Note: Responsible Observer: NEUT# NEUT# 100.1150 (B) Neutrophils/leuk NFr Bld Auto 71.8 percent (41-77) N (Normal) Note: Responsible Observer: NEUT% NEUT% 100.1125 (B) Platelet # Bld Auto 224 ThousandsPerMicroLiter_[Number_Concentration_Units] (130-472 ) N (Normal) Note: Responsible Observer: PLATELET COU NT PLATELET COUNT 100.1000 (D) MCH RBC Qn Auto 30 [place]_[SI_Mass_Units] (27-31) N (Normal) Note: Responsible Observer: MCH MCH 100 .0700 (B) RBC # Bld Auto 3.21 MillionsPerMicroLiter_[Number_Concentration_Units] (4.20-5.4 0) L (Low) Note: Responsible Observer: RBC Red Bloo d Count 100.0300 (B) NUCLEATED RED BLOOD CELL# 0 Unit None Note: Responsible Observer: NRBC# NUCLEA VICTOR M RBC 100.1362 (A) NUCLEATED RED BLOOD CELL 0 percent None Note: Responsible Observer: NRBC% NRBC% 100.1360 (B) Reviewed by Maya Barron MD on 01/12; All test results are final unless otherwise noted. [facility] Ordered by Maya Barron MD on 01/11/2021 Collected: 01/11/2021 Reported: 01/11/2021 17:30 ALT SerPl w P-5'-P-cCnc 11 enzyme_unit_per_liter (10-49) N (Normal) Note: Responsible Observer: SGPT/ALT SGP T/ALT 400.1750 (G) Calcium SerPl-mCnc 8.0 MilliGramsPerDeciLiter_[Mass_Concentration_Units] (8.5-10.1) L (Low) Note: Responsible Observer: Calcium Calc ium 400.2500 (G) Bilirub SerPl-mCnc 0.2 MilliGramsPerDeciLiter_[Mass_Concentration_Units] (0.3-1.2) L (Low) Note: Responsible Observer: T KELLIE Total Bilirubin 400.2600 (G) CO2 SerPl-sCnc 21 MilliMolesPerLiter_[Substance_Concentration_Units] (20-31) N (Normal) Note: Responsible Observer: CO2 Carbon D ioxide 400.1400 (G) Chloride SerPl-sCnc 107 MilliMolesPerLiter_[Substance_Concentration_Units] (98-107) N (Normal) Note: @Reenter manual test result: 107@Jia Dennis at 01/11/21 1730.Responsible Observer: Chloride Chloride 400.1250 (G) Glucose SerPl-mCnc 94 MilliGramsPerDeciLiter_[Mass_Concentration_Units] (74-106) N (Normal) Note: Responsible Observer: Glucose Gluc ose 400.1500 (G) Potassium SerPl-sCnc 3.7 MilliMolesPerLiter_[Substance_Concentration_Units] (3.6-5.0) N (Normal) Note: @Reenter manual test result: 3.7@Jia Dennis at 01/11/21 1729.Responsible Observer: K Potassium 400.1210 (G) Prot SerPl-mCnc 5.8 GramsPerDeciLiter_[Mass_Concentration_Units] (5.7-8.2) N (Normal) Note: Responsible Observer: TP Total Pro tein 400.2800 (G) Sodium SerPl-sCnc 135 MilliMolesPerLiter_[Substance_Concentration_Units] (134-153) N (Normal) Note: @Reenter manual test result: 135@diane saha Jia Lentz at 01/11/21 1729.Responsible Observer: Sodium Sodium 400.1100 (G) AST SerPl w P-5'-P-cCnc 10 enzyme_unit_per_liter (0-33) N (Normal) Note: Responsible Observer: SGOT / AST S GOT / AST 400.1900 (G) BUN SerPl-mCnc 5 MilliGramsPerDeciLiter_[Mass_Concentration_Units] (9-23) L (Low) Note: Responsible Observer: BUN Blood Ur ea Nitrogen 400.1000 (G) Anion Gap SerPl-sCnc 11 MilliMolesPerLiter_[Substance_Concentration_Units] (8-16) N (Normal) Note: Responsible Observer: ANION GAP AN ION GAP 400.1402 (E) Albumin SerPl BCP-mCnc 2.3 GramsPerDeciLiter_[Mass_Concentration_Units] (3.2-4.8) L (Low) Note: Responsible Observer: Albumin Albu min 400.2700 (G) ALP SerPl-cCnc 108 enzyme_unit_per_liter (45-129) N (Normal) Note: Responsible Observer: ALP Alkaline Phosphatase 400.2000 (G) GFR/BSA.pred SerPlBld-ArVRat Greater Than 60 (ABOVE 60) None Note: Responsible Observer: GFR Glomerul ar Filt Rate Calc 400.1605 (D) Creatinine 0.4 MilliGramsPerDeciLiter_[Mass_Concentration_Units] (0.5-1.1) L (Low) Note: Responsible Observer: Creatinine C reatinine 400.1600 (G) NOTES See Note None Note: Test(s)performed at [address] [place] [address] Reviewed by Maya Barron MD on 01/12; All test results are final unless otherwise noted. Reported Physicians [facility] Ordered by Maya Barron MD on 01/11/2021 Collected: 01/11/2021 Reported: 01/11/2021 17:30 Reported Physicians See Note None Note: Reported Physicians:Ordering: Les Vanegas AAttending: Fady Raza To: Maya Barron Reviewed by Maya Barron MD on 01/12; All test results are final unless otherwise noted. UA W/ CULTURE IF ABNORMAL [facility] Ordered by Maya Barron MD on 12/28/2020 Collected: 12/28/2020 Reported: 12/28/2020 21:56 Urobilinogen Ur Ql See Note (0.2-1 EU/dl) None Note: 0.2 EU/dl0.2 [id number] E U/dlResponsible Observer: UROBILINOGEN UROBILINOGEN 300.4500 (C) RBC # Ur Strip NEGATIVE (NEGATIVE) None Note: Responsible Observer: BLOOD BLOOD 300.4652 (C) Prot Ur Ql Strip See Note (NEGATIVE) None Note: [id number] EResponsible Observer: PROTEIN PROTEIN 300.3750 (C) Ketones Ur Ql Strip See Note (NEGATIVE) None Note: [id number] EResponsible Observer: KETONE KETONE 300.3900 (C) Bilirub Ur Ql Strip.auto See Note (NEGATIVE) None Note: [id number] EResponsible Observer: BILIRUBIN BILIRUBIN 300.4550 (C) Glucose Ur Strip.auto-mCnc 250 mg/dl (NEGATIVE) None Note: Responsible Observer: GLUCOSE GLUC OSE 300.3850 (C) Appearance Ur See Note (CLEAR) A (Abnormal) Note: TURBIDTURBIDLTURBIDResponsible Obs erver: APPEARANCE APPEARANCE 300.3400 (A) Color Ur See Note None Note: YELLOWYELLOWLYELLOWResponsible Obs erver: COLOR COLOR 300.3330 (A) Leukocyte esterase Ur Ql Strip See Note (NEGATIVE) None Note: [id number]@DO MICR O!!!!A Culture has been added to this specimen per established criteriaResponsible Observer: LEUKOCYTES LEUKOCYTES 300.3576 (C) Nitrite Ur Ql Strip See Note (NEGATIVE) None Note: [id number] EResponsible Observer: NITRITE NITRITE 300.3652 (B) pH Ur Strip 7.0 (5-8) None Note: Responsible Observer: PH PH 300.3 450 (C) Sp Gr Ur Refractometry 1.021 (1.005-1.030) None Note: Responsible Observer: SP GRAVITY U RINE SPECIFIC GRAVITY-MAN 300.3475 (C) URINE MICROSCOPIC? (CIF) Microscopic Added None Note: Responsible Observer: UA URINE SHAWN ROSCOPIC PENDING 300.4665 (D) NOTES See Note None Note: Reason for ordering culture: Abnor mal findings UA@12/28/20 2156: UA W/ MICRO added. RFLXG = UMIC CIF.Method of Collection:: Voided Reviewed by Maya Barron MD on 01/01; All test results are final unless otherwise noted. Urine culture [facility] Ordered by Maya Barron MD on 12/28/2020 Collected: 12/28/2020 Reported: 12/30/2020 08:03 Urine culture result 25,000 CFU/ML Lactobacilli no senst done None NOTES See Note None Note: @12/28/206: Urine culture adde d. RFLXG = CULT.ADD. Reviewed by Maya Barron MD on 01/01; All test results are final unless otherwise noted. Reported Physicians [facility] Ordered by Maya Barron MD on 12/28/2020 Collected: 12/28/2020 Reported: 12/30/2020 08:03 Reported Physicians See Note None Note: Reported Physicians:Ordering: Sana Recinosending: Sammie Ann To: Maya Barron Reviewed by Maya Barron MD on 01/01; All test results are final unless otherwise noted. ADD ON MICROSCOPIC [facility] Ordered by Maya Barron MD on 12/28/2020 Collected: 12/28/2020 Reported: 12/28/2020 21:56 ADD ON MICROSCOPIC See Note (0-5) None Note: NOTES OTHER/NOT INTERPRETED Amorph Sed UrnS Ql Micro LARGE AMT URATES Amorph Sed UrnS Ql Micro LARGE AMT URATES Amorph Sed UrnS Ql Micro L Amorph Sed UrnS Ql Micro Amorph Sed UrnS Ql Micro Amorph Sed UrnS Ql Micro Amorph Sed UrnS Ql Micro [id number] Amorph Sed UrnS Ql Micro Amorph Sed UrnS Ql Micro LARGE AMT URATES Bacteria UrnS Ql Micro SMALL AMOUNT Bacteria UrnS Ql Micro SMALL AMOUNT Bacteria UrnS Ql Micro L Bacteria UrnS Ql Micro Bacteria UrnS Ql Micro Bacteria UrnS Ql Micro Bacteria UrnS Ql Micro [id number] Bacteria UrnS Ql Micro Bacteria UrnS Ql Micro SMALL AMOUNT Cells UrnS Micro MANY Cells UrnS Micro MANY Cells UrnS Micro MANY Cells UrnS Micro L Cells UrnS Micro Cells UrnS Micro Cells UrnS Micro Cells UrnS Micro Cells UrnS Micro WBC # Ur Manual 3-5 Reason for ordering culture: Abnormal findings UA@12/28/20 2156: UA W/ MICRO added. RFLXG = UMIC CIF .Method of Collection:: VoidedResponsible Observer: WBC WBC 300.5005 (A) Reviewed by Maya Barron MD on 01/01; All test results are final unless otherwise noted. Reported Physicians [facility] Ordered by Maya Barron MD on 12/28/2020 Collected: 12/28/2020 Reported: 12/28/2020 21:56 Reported Physicians See Note None Note: Reported Physicians:Ordering: Sana Recinosending: Sammie Ann To: Maya Barron Reviewed by Maya Barron MD on 01/01; All test results are final unless otherwise noted. Cepheid SARS/FLU/RSV RT-PCR [facility] Ordered by Maya Barron MD on 12/28/2020 Collected: 12/28/2020 Reported: 12/28/2020 22:13 Cepheid SARS/FLU/RSV RT-PCR See Note None Note: NORMAL RESULT IS "Not Detected"Cep heid SARS-CoV-2,FLU/RSV is Multiplex real time RT-PCRNegative results do not preclude SARS-COV-2, influenza orRSV infection and should not be used as the sole basis fortreatment or other patient management decisions.False negative results may occur if virus is present atlevels below the analytical limit of detection.This test has been authorized by FDA under an EUA for use [facility]horized [id number]-zas CoV RNA Resp Ql ТАТЬЯНА+bdheuQULMCWYRJTR-JUO-1 NOT [id number]-[id number]-3 NOT [id number] RNA Resp Ql ТАТЬЯНА+probeLNNFLUAInfluenza A Not Det [id number] A Not Uqsznoww20231-8ASFUE RNA Resp Ql ТАТЬЯНА+probeLNNINBInfluenza B Not [id number] B Not Xilmhhlt88033- 2RSV RNA Resp Ql ТАТЬЯНА+probeLNNRSVRSV Not [id number] Not Detected Reviewed by Maya Barron MD on 01/01; All test results are final unless otherwise noted. Reported Physicians [facility] Ordered by Maya Barron MD on 12/28/2020 Collected: 12/28/2020 Reported: 12/28/2020 22:13 Reported Physicians See Note None Note: Reported Physicians:Ordering: Sana Recinosending: Sammie Ann To: Maya Barron Reviewed by Maya Barron MD on 01/01; All test results are final unless otherwise noted. CBC W AUTO DIFF [facility] Ordered by Maya Barron MD on 12/28/2020 Collected: 12/28/2020 Reported: 12/28/2020 20:43 MCV BldCo Auto 90 FemtoLiter_[SI_Volume_Units] (80-96) N (Normal) Note: Responsible Observer: MCV MCV 100 .0600 (B) RDW RBC Auto 12 percent (11-15) N (Normal) Note: Responsible Observer: RDW RDW 100 .0900 (B) Manual diff Bld NO None Note: Responsible Observer: CBC Manual D ifferential Added 100.1990 (B) PMV Bld 9.3 FemtoLiter_[SI_Volume_Units] (9.1-13.1) N (Normal) Note: Responsible Observer: MPV MPV 100 .1100 (B) Imm Granulocytes Bld Ql Auto See Note (0-2) N (Normal) Note: [id number] Ob server support technician: IG% IG% 100.1375 (B) Hct VFr Bld Auto 32.4 percent (37-47) L (Low) Note: Responsible Observer: HEMATOCRIT H EMATOCRIT 100.0500 (B) MCHC BldCo-mCnc 34 GramsPerDeciLiter_[Mass_Concentration_Units] (33-37) N (Normal) Note: Responsible Observer: MCHC MCHC 1 00.0800 (B) Imm Granulocytes # Bld Auto 0.0 Unit (0-0.1) None Note: Responsible Observer: IG# IG# 100 .1400 (B) Monocytes/leuk NFr Bld Auto 8.9 percent (4-12) N (Normal) Note: Responsible Observer: MONO % MONO % 100.1225 (B) Hgb Bld-sCnc 11.0 GramsPerDeciLiter_[Mass_Concentration_Units] (10.7-15.4) N (Normal) Note: Responsible Observer: HGB HEMOGLOB IN 100.0400 (B) WBC # Bld Auto 8.9 ThousandsPerMicroLiter_[Number_Concentration_Units] (4.45-10 .71) N (Normal) Note: Responsible Observer: WBC WHITE BL OOD COUNT 100.0100 (E) Basophils # Bld Auto 0.0 Unit (0.0-0.2) N (Normal) Note: Responsible Observer: BASO # BASO# 100.1350 (B) Basophils/leuk NFr Bld Auto 0.3 percent (0.4-1.3) L (Low) Note: Responsible Observer: BASO % BASO % 100.1325 (B) Eosinophil # Bld Auto 0.1 Unit (0.0-0.5) N (Normal) Note: Responsible Observer: EOS # EOS# 100.1300 (D) Eosinophil/leuk NFr Bld Auto 0.7 percent (0-7) N (Normal) Note: Responsible Observer: EOS % EOS % 100.1275 (B) Lymphocytes # Bld Auto 1.6 Unit (0.6-4.6) N (Normal) Note: Responsible Observer: LYMPH # LYMP H# 100.1200 (B) Lymphocytes/leuk NFr Bld Auto 17.7 percent (14-46) N (Normal) Note: Responsible Observer: LYMPH % LYMP H % 100.1175 (B) Monocytes # Bld Auto 0.8 Unit (0.2-1.2) N (Normal) Note: Responsible Observer: MONO # MONO# 100.1250 (C) Neutrophils # Bld Auto 6.4 Unit (1.7-7.6) N (Normal) Note: Responsible Observer: NEUT# NEUT# 100.1150 (B) Neutrophils/leuk NFr Bld Auto 72.1 percent (41-77) N (Normal) Note: Responsible Observer: NEUT% NEUT% 100.1125 (B) Platelet # Bld Auto 243 ThousandsPerMicroLiter_[Number_Concentration_Units] (130-472 ) N (Normal) Note: Responsible Observer: PLATELET COU NT PLATELET COUNT 100.1000 (D) MCH RBC Qn Auto 30 [place]_[SI_Mass_Units] (27-31) N (Normal) Note: Responsible Observer: MCH MCH 100 .0700 (B) RBC # Bld Auto 3.62 MillionsPerMicroLiter_[Number_Concentration_Units] (4.20-5.4 0) L (Low) Note: Responsible Observer: RBC Red Bloo d Count 100.0300 (B) NUCLEATED RED BLOOD CELL# 0 Unit None Note: Responsible Observer: NRBC# NUCLEA VICTOR M RBC 100.1362 (A) NUCLEATED RED BLOOD CELL 0 percent None Note: Responsible Observer: NRBC% NRBC% 100.1360 (B) Reviewed by Maya Barron MD on 01/03; All test results are final unless otherwise noted. [facility] Ordered by Maya Barron MD on 12/28/2020 Collected: 12/28/2020 Reported: 12/28/2020 21:03 ALT SerPl w P-5'-P-cCnc 13 enzyme_unit_per_liter (10-49) N (Normal) Note: Responsible Observer: SGPT/ALT SGP T/ALT 400.1750 (G) Calcium SerPl-mCnc 8.2 MilliGramsPerDeciLiter_[Mass_Concentration_Units] (8.5-10.1) L (Low) Note: Responsible Observer: Calcium Calc ium 400.2500 (G) Bilirub SerPl-mCnc 0.2 MilliGramsPerDeciLiter_[Mass_Concentration_Units] (0.3-1.2) L (Low) Note: Responsible Observer: T KELLIE Total Bilirubin 400.2600 (G) CO2 SerPl-sCnc 22 MilliMolesPerLiter_[Substance_Concentration_Units] (20-31) N (Normal) Note: Responsible Observer: CO2 Carbon D ioxide 400.1400 (G) Chloride SerPl-sCnc 110 MilliMolesPerLiter_[Substance_Concentration_Units] (99-109) H (High) Note: Responsible Observer: Chloride Chl oride 400.1250 (G) Glucose SerPl-mCnc 103 MilliGramsPerDeciLiter_[Mass_Concentration_Units] (74-106) N (Normal) Note: Responsible Observer: Glucose Gluc ose 400.1500 (G) Potassium SerPl-sCnc 3.4 MilliMolesPerLiter_[Substance_Concentration_Units] (3.5-5.5) L (Low) Note: Responsible Observer: K Potassium 400.1210 (G) Prot SerPl-mCnc 6.5 GramsPerDeciLiter_[Mass_Concentration_Units] (5.7-8.2) N (Normal) Note: Responsible Observer: TP Total Pro tein 400.2800 (G) Sodium SerPl-sCnc 140 MilliMolesPerLiter_[Substance_Concentration_Units] (132-146) N (Normal) Note: Responsible Observer: Sodium Sodiu m 400.1100 (G) AST SerPl w P-5'-P-cCnc 11 enzyme_unit_per_liter (0-33) N (Normal) Note: Responsible Observer: SGOT / AST S GOT / AST 400.1900 (G) BUN SerPl-mCnc 7 MilliGramsPerDeciLiter_[Mass_Concentration_Units] (9-23) L (Low) Note: Responsible Observer: BUN Blood Ur ea Nitrogen 400.1000 (G) Anion Gap SerPl-sCnc 11 MilliMolesPerLiter_[Substance_Concentration_Units] (8-16) N (Normal) Note: Responsible Observer: ANION GAP AN ION GAP 400.1402 (E) Albumin SerPl BCP-mCnc 2.7 GramsPerDeciLiter_[Mass_Concentration_Units] (3.2-4.8) L (Low) Note: Responsible Observer: Albumin Albu min 400.2700 (G) ALP SerPl-cCnc 110 enzyme_unit_per_liter (45-129) N (Normal) Note: Responsible Observer: ALP Alkaline Phosphatase 400.2000 (G) GFR/BSA.pred SerPlBld-ArVRat Greater Than 60 (ABOVE 60) None Note: Responsible Observer: GFR Glomerul ar Filt Rate Calc 400.1605 (D) Creatinine 0.5 MilliGramsPerDeciLiter_[Mass_Concentration_Units] (0.5-1.1) N (Normal) Note: Responsible Observer: Creatinine C reatinine 400.1600 (G) Reviewed by Maya Barron MD on 01/03; All test results are final unless otherwise noted. [facility] Ordered by Maya Barron MD on 12/28/2020 Collected: 12/28/2020 Reported: 12/28/2020 21:08 Lactic w Rfx (if elevated) 1.5 MilliMolesPerLiter_[Substance_Concentration_Units] (0.5-2.0) N (Normal) Note: Responsible Observer: Lactic Acid Lactic Acid 400.2831 (G) Reviewed by Maya Barron MD on 01/03; All test results are final unless otherwise noted. Blood Culture (Incl Anaerobic)-1 [facility] Ordered by Maya Barron MD on 12/28/2020 Collected: 12/28/2020 Reported: 01/02/2021 20:38 Bacteria Bld Cult See Note None Note: NG5DNo growth.[id number] GROWTH AFTE R 5 DAYS Reviewed by Maya Barron MD on 01/03; All test results are final unless otherwise noted. Blood Culture (Incl Anaerobic)-2 [facility] Ordered by Maya Barron MD on 12/28/2020 Collected: 12/28/2020 Reported: 01/02/2021 20:38 Bacteria Bld Cult See Note None Note: NG5DNo growth.[id number] GROWTH AFTE R 5 DAYS Reviewed by Maya Barron MD on 01/03; All test results are final unless otherwise noted. Reported Physicians [facility] Ordered by Maya Barron MD on 12/28/2020 Collected: 12/28/2020 Reported: 01/02/2021 20:38 Reported Physicians See Note None Note: Reported Physicians:Ordering: Renetta Recinosttending: Sammie Ann To: Maya Barron Reviewed by Maya Barron MD on 01/03; All test results are final unless otherwise noted. PT/PTT [facility] Ordered by Maya Barron MD on 12/28/2020 Collected: 12/28/2020 Reported: 12/28/2020 03:45 INR 1.09 (0.93 - 1.23) None Note: Responsible Observer: (LBS) PROTIME 14.2 SECONDS (11.0 - 15.5) None Note: Responsible Observer: (LBS) PTT 27.4 SECONDS (24.8 - 36.7) None Note: BLDo INR INTERPRETATIONBLDx Therapeutic range for Coumadin and related oral anticoagulants. - International Normalized Ratio (INR): 2.0 - 3.0 for Venous Thrombosis, Pulmonary Embolus, Tissue heart valves, Acute CO Atrial Fibrillation, Valvular heart disease and recurrent Systemic Embolism. - International Normalized Ratio (INR): 2.5 - 3.5 for Mechanical Prosthetic valve.Responsible Observer: (LBS) Reviewed by Maya Barron MD on 12/29; All test results are final unless otherwise noted. Reported Physicians [facility] Ordered by Maya Barron MD on 12/28/2020 Collected: 12/28/2020 Reported: 12/28/2020 03:46 Reported Physicians See Note None Note: Reported Physicians:Ordering: HOLLYR IN, RICCARDOAttending: ROBERTO RICCARDOConsulting: Rubén BARRON To: ARIA MEJIACARDOCopy To: JESSEE MEJIA Reviewed by Maya Barron MD on 12/29; All test results are final unless otherwise noted. CBC W/AUTOMATED DIFF [facility] Ordered by Maya Barron MD on 12/28/2020 Collected: 12/28/2020 Reported: 12/28/2020 03:33 #BASO 0.01 10\\^3/uL (0.00 - 0.20) None Note: Responsible Observer: (LBS) #EOS 0.10 10\\^3/uL (0.00 - 0.70) None Note: Responsible Observer: (LBS) #IG 0.03 10\\^3/uL (0.00 - 0.10) None Note: Responsible Observer: (LBS) #LYMPH 2.29 10\\^3/uL (0.60 - 3.40) None Note: Responsible Observer: (LBS) #MONO 0.77 10\\^3/uL (0.00 - 0.90) None Note: Responsible Observer: (LBS) #NEUT 5.23 10\\^3/uL (2.00 - 6.90) None Note: Responsible Observer: (LBS) #NRBC 0.00 10\\^3/uL (0.00 - 0.00) None Note: Responsible Observer: (LBS) %IG 0.4 % (0.0 - 0.0) H (High) Note: Responsible Observer: (LBS) %NRBC 0.0 % (0.0 - 0.0) None Note: Responsible Observer: (LBS) BASO 0.1 % (0.0 - 2.5) None Note: Responsible Observer: (LBS) CBC W/AUTOMATED DIFF See Note None Note: COMPLETE BLOOD COUNTResponsibl e Observer: (LBS) EOS 1.2 % (0.0 - 7.0) None Note: Responsible Observer: (LBS) HEMATOCRIT 31.6 % (37.0 - 47.0) L (Low) Note: Responsible Observer: (LBS) HEMOGLOBIN 10.7 g/dL (12.0 - 16.0) L (Low) Note: Responsible Observer: (LBS) LYMPH 27.2 % (25.0 - 40.0) None Note: Responsible Observer: (LBS) MANUAL DIFF NOT INDICATED None Note: Responsible Observer: (LBS) MCH 30.1 pg (27.0 - 34.0) None Note: Responsible Observer: (LBS) MCHC 33.9 g/dL (31.0 - 36.0) None Note: Responsible Observer: (LBS) MCV 89.0 fL (81.0 - 101) None Note: Responsible Observer: (LBS) MONO 9.1 % (3.0 - 8.0) H (High) Note: Responsible Observer: (LBS) MPV 9.4 fL (7.4 - 10.4) None Note: Responsible Observer: (LBS) NEUT 62.0 % (37.0 - 80.0) None Note: Responsible Observer: (LBS) PLATELETS 253 10\\^3/uL (150 - 450) None Note: Responsible Observer: (LBS) RBC 3.55 10\\^6/uL (4.20 - 5.40) L (Low) Note: Responsible Observer: (LBS) RBC MORPH NOT INDICATED None Note: Responsible Observer: (LBS) RDW 12.1 % (11.5 - 14.5) None Note: Responsible Observer: (LBS) WBC 8.4 10\\^3/uL (4.2 - 11.0) None Note: Responsible Observer: (LBS) Reviewed by Maya Barron MD on 12/29; All test results are final unless otherwise noted. Reported Physicians [facility] Ordered by Maya Barron MD on 12/28/2020 Collected: 12/28/2020 Reported: 12/28/2020 03:34 Reported Physicians See Note None Note: Reported Physicians:Ordering: MARCELINO IN, JESSEEAttending: JESSEE MEJIAConsulting: Rubén BARRON To: JESSEE MEJIACopyifan To: JESSEE MEJIA Reviewed by Maya Barron MD on 12/29; All test results are final unless otherwise noted. COMPREHENSIVE METABOLIC PANEL [facility] Ordered by Maya Barron MD on 12/28/2020 Collected: 12/28/2020 Reported: 12/28/2020 04:05 A/G RATIO 1.3 (0.8 - 2.0) None Note: Responsible Observer: (MLE) AFR AMER GFR >60 mL/min None Note: Male GFR Interprentation 20- 49 yrs >60 mL/min Normal 50-59 yrs >56 mL/min Normal 60-69 yrs >49 mL/min Normal 70-79yrs >42 mL/min Normal 80 and above >35 mL/min Normal Female GFR Interpretation 20-39 yrs >60 mL/min Normal 40-49 yrs >58 mL/min Normal 50-59 yrs >51 mL/min Normal 60-69 yrs >45 mL/min Normal 70-79 yrs >39 mL/min Normal 80 and above >32 mL/min NormalResponsible Observer: (MLE) AGE 20 yrs None Note: Responsible Observer: (MLE) ALBUMIN 3.5 G/DL (3.9 - 5.0) L (Low) Note: Responsible Observer: (MLE) ALKALINE PHOS 114 U/L (38 - 126) None Note: Responsible Observer: (MLE) ANION GAP 10.0 mmol/L (8.0 - 16.0) None Note: Responsible Observer: (MLE) BUN 7 MG/DL (7 - 21) None Note: Responsible Observer: (MLE) BUN/CREAT 14 (8 - 27) None Note: Responsible Observer: (MLE) CALCIUM 8.5 MG/DL (8.4 - 10.2) None Note: Responsible Observer: (MLE) CHLORIDE 104 mEq/L (98 - 107) None Note: Responsible Observer: (MLE) CO2 22 MEQ/L (22 - 30) None Note: Responsible Observer: (MLE) COMPREHENSIVE METABOLIC PANEL See Note None Note: COMPREHENSIVE METABOLIC PANELR esponsible Observer: (MLE) CREATININE 0.5 MG/DL (0.7 - 1.5) L (Low) Note: Responsible Observer: (MLE) GLOBULIN 2.6 GM/DL (2.4 - 3.2) None Note: Responsible Observer: (MLE) GLUCOSE 81 MG/DL (70 - 99) None Note: Responsible Observer: (MLE) NON-AA GFR >60 mL/min None Note: Responsible Observer: (MLE) POTASSIUM 3.7 mEq/L (3.6 - 5.0) None Note: Responsible Observer: (MLE) SGOT/AST 12 U/L (5 - 40) None Note: Responsible Observer: (MLE) SGPT/ALT 6 U/L (7 - 56) L (Low) Note: Responsible Observer: (MLE) SODIUM 136 mEq/L (134 - 153) None Note: Responsible Observer: (MLE) TOTAL BILI <0.7 MG/DL (0.2 - 1.3) None Note: Responsible Observer: (MLE) TOTAL PROTEIN 6.1 G/DL (6.3 - 8.2) L (Low) Note: Responsible Observer: (MLE) Reviewed by Maya Barron MD on 12/29; All test results are final unless otherwise noted. Reported Physicians [facility] Ordered by Maya Barron MD on 12/28/2020 Collected: 12/28/2020 Reported: 12/28/2020 04:05 Reported Physicians See Note None Note: Reported Physicians:Ordering: TURR IN, RICCARDOAttending: HOLLYRIN, RICCARDOConsulting: Rubén BARRON To: HOLLYRIN, RICCARDOCopy To: HOLLYRIN, JESSEE Reviewed by Maya Barron MD on 12/29; All test results are final unless otherwise noted. D-DIMER [facility] Ordered by Maya Barron MD on 12/28/2020 Collected: 12/28/2020 Reported: 12/28/2020 03:46 D-DIMER QUANT 0.36 ug/mL (0.27 - 0.50) None Note: Responsible Observer: (LBS) Reviewed by Maya Barron MD on 12/29; All test results are final unless otherwise noted. Reported Physicians [facility] Ordered by Maya Barron MD on 12/28/2020 Collected: 12/28/2020 Reported: 12/28/2020 03:46 Reported Physicians See Note None Note: Reported Physicians:Ordering: TURR IN, RICCARDOAttending: HOLLYRIN, RICCARDOConsulting: Rubén BARRON To: TURRIN, RICCARDOCopy To: TURRIN, JESSEE Reviewed by Maya Barron MD on 12/29; All test results are final unless otherwise noted. LIPASE SERUM [facility] Ordered by Maya Barron MD on 12/28/2020 Collected: 12/28/2020 Reported: 12/28/2020 04:05 LIPASE 33 U/L (13 - 60) None Note: Responsible Observer: (MLE) Reviewed by Maya Barron MD on 12/29; All test results are final unless otherwise noted. Reported Physicians [facility] Ordered by Maya Barron MD on 12/28/2020 Collected: 12/28/2020 Reported: 12/28/2020 04:06 Reported Physicians See Note None Note: Reported Physicians:Ordering: TURR IN, RICCARDOAttending: ROBERTO, RICCARDOConsulting: Rubén BARRON To: ARIA MEJIACARDOCopy To: JESSEE MEJIA Reviewed by Maya Barron MD on 12/29; All test results are final unless otherwise noted. TROPONIN T [facility] Ordered by Maya Barron MD on 12/28/2020 Collected: 12/28/2020 Reported: 12/28/2020 04:05 TROPONIN T <0.01 NG/ML (0.00 - 0.10) None Note: TROPONIN T0.1 ng/ml Recommended as the clinical threshold value forTroponin T.Responsible Observer: (MLE) Reviewed by Maya Barron MD on 12/29; All test results are final unless otherwise noted. Reported Physicians [facility] Ordered by Maya Barron MD on 12/28/2020 Collected: 12/28/2020 Reported: 12/28/2020 04:05 Reported Physicians See Note None Note: Reported Physicians:Ordering: TURR IN, RICCARDOAttending: ROBERTO RICCARDOConsulting: Rubén BARRON To: ROBERTO RICCARDOCopy To: ROBERTO JESSEE Reviewed by Maya Barron MD on 12/29; All test results are final unless otherwise noted. Cepheid SARS/FLU/RSV RT-PCR [facility] Ordered by Maya Barron MD on 12/23/2020 Collected: 12/23/2020 Reported: 12/23/2020 13:41 Cepheid SARS/FLU/RSV RT-PCR See Note None Note: NORMAL RESULT IS "Not Detected"Cep heid SARS-CoV-2,FLU/RSV is Multiplex real time RT-PCRNegative results do not preclude SARS-COV-2, influenza orRSV infection and should not be used as the sole basis fortreatment or other patient management decisions.False negative results may occur if virus is present atlevels below the analytical limit of detection.This test has been authorized by FDA under an EUA for [facility] [id number]-jvr CoV RNA Resp Ql ТАТЬЯНА+xqxenDJUWAVPDLEL-YQJ-5 NOT [id number]-USP-5 NOT [id number] RNA Resp Ql ТАТЬЯНА+probeLNNFLUAInfluenza A Not Det [id number] A Not Qufwwlmj61912-8LHIFE RNA Resp Ql ТАТЬЯНА+probeLNNINBInfluenza B Not [id number] B Not Vfqthyzh45672- 2RSV RNA Resp Ql ТАТЬЯНА+probeLNNRSVRSV Not [id number] Not Detected Reviewed by Maya Barron MD on 12/25; All test results are final unless otherwise noted. Reported Physicians [facility] Ordered by Maya Barron MD on 12/23/2020 Collected: 12/23/2020 Reported: 12/23/2020 13:41 Reported Physicians See Note None Note: Reported Physicians:Ordering: Aj Ferreiraending: Jos Rivas To: Maya Barron Reviewed by Maya Barron MD on 12/25; All test results are final unless otherwise noted. UA W/ CULTURE IF ABNORMAL [facility] Ordered by Maya Barron MD on 12/23/2020 Collected: 12/23/2020 Reported: 12/23/2020 08:51 Urobilinogen Ur Ql See Note (0.2-1 EU/dl) None Note: 1 EU/dl1 EU/[id number] EU/dlRe sponsible Observer: UROBILINOGEN UROBILINOGEN 300.4500 (C) RBC # Ur Strip NEGATIVE (NEGATIVE) None Note: Responsible Observer: BLOOD BLOOD 300.4652 (C) Prot Ur Ql Strip See Note (NEGATIVE) None Note: [id number] ble Observer: PROTEIN PROTEIN 300.3750 (C) Ketones Ur Ql Strip See Note (NEGATIVE) None Note: [id number] EResponsible Observer: KETONE KETONE 300.3900 (C) Bilirub Ur Ql Strip.auto See Note (NEGATIVE) None Note: [id number] EResponsible Observer: BILIRUBIN BILIRUBIN 300.4550 (C) Glucose Ur Strip.auto-mCnc NEGATIVE (NEGATIVE) None Note: Responsible Observer: GLUCOSE GLUC OSE 300.3850 (C) Appearance Ur See Note (CLEAR) A (Abnormal) Note: TURBIDTURBIDLTURBIDResponsible Obs erver: APPEARANCE APPEARANCE 300.3400 (A) Color Ur See Note None Note: YELLOWYELLOWLYELLOWResponsible Obs erver: COLOR COLOR 300.3330 (A) Leukocyte esterase Ur Ql Strip See Note (NEGATIVE) None Note: [id number]@DO MICR O!!!!A Culture has been added to this specimen per established criteriaResponsible Observer: LEUKOCYTES LEUKOCYTES 300.3576 (C) Nitrite Ur Ql Strip See Note (NEGATIVE) None Note: [id number] EResponsible Observer: NITRITE NITRITE 300.3652 (B) pH Ur Strip 6.5 (5-8) None Note: Responsible Observer: PH PH 300.3 450 (C) Sp Gr Ur Refractometry 1.016 (1.005-1.030) None Note: Responsible Observer: SP GRAVITY U RINE SPECIFIC GRAVITY-MAN 300.3475 (C) URINE MICROSCOPIC? (CIF) Microscopic Added None Note: Responsible Observer: UA URINE SHAWN ROSCOPIC PENDING 300.4665 (D) NOTES See Note None Note: Reason for ordering culture: Abnor mal findings UA@12/23/20 0831: UA W/ MICRO added. RFLXG = UMIC CIF.Method of Collection:: Voided Reviewed by Maya Barron MD on 12/25; All test results are final unless otherwise noted. Urine culture [facility] Ordered by Maya Barron MD on 12/23/2020 Collected: 12/23/2020 Reported: 12/24/2020 10:07 Urine culture result See Note None Note: Less than 10,000 CFU/MLStaph spp, Strep spp, Corynebacterium sppProbable contaminants no senst done NOTES See Note None Note: @12/23/20 0851: Urine culture flavia digna RFLXG = CULT.ADD. Reviewed by Maya Barron MD on 12/25; All test results are final unless otherwise noted. Reported Physicians [facility] Ordered by Maya Barron MD on 12/23/2020 Collected: 12/23/2020 Reported: 12/24/2020 10:07 Reported Physicians See Note None Note: Reported Physicians:Ordering: Aj Ferreiraending: Jos Rivas To: Maya Barron Reviewed by Maya Barron MD on 12/25; All test results are final unless otherwise noted. ADD ON MICROSCOPIC [facility] Ordered by Maya Barron MD on 12/23/2020 Collected: 12/23/2020 Reported: 12/23/2020 08:51 ADD ON MICROSCOPIC See Note (0-5) None Note: NOTES OTHER/NOT INTERPRETED Bacteria UrnS Ql Micro MODERATE AMOUNT Bacteria UrnS Ql Micro MODERATE AMOUNT Bacteria UrnS Ql Micro L Bacteria UrnS Ql Micro Bacteria UrnS Ql Micro Bacteria UrnS Ql Micro Bacteria UrnS Ql Micro [id number] Bacteria UrnS Ql Micro Bacteria UrnS Ql Micro MODERATE AMOUNT Cells UrnS Micro Cells UrnS Micro FEW Cells UrnS Micro FEW Cells UrnS Micro FEW Cells UrnS Micro L Cells UrnS Micro Cells UrnS Micro Cells UrnS Micro Cells UrnS Micro RBC # Ur Manual OCCASIONAL WBC # Ur Manual 50-75 A Culture has been added to this specimen per established criteriaReason for ordering culture: Abnormal findings UA@12/23/20 0831: UA W/ MICRO added. RFLXG = UMIC CIF.Method of Collection:: VoidedResponsible Observer: RBC RBC 300.4900 (A) Reviewed by Maya Barron MD on 12/25; All test results are final unless otherwise noted. Reported Physicians [facility] Ordered by Maya Barron MD on 12/23/2020 Collected: 12/23/2020 Reported: 12/23/2020 08:52 Reported Physicians See Note None Note: Reported Physicians:Ordering: Aj Ferreiraending: Jos Rivas To: Maya Barron Reviewed by Maya Barron MD on 12/25; All test results are final unless otherwise noted. TROPONIN [facility] Ordered by Maya Barron MD on 12/23/2020 Collected: 12/23/2020 Reported: 12/23/2020 09:39 Troponin I SerPl-mCnc Less Than 0.015 (0.00-0.09) N (Normal) Note: Less than 0.09 NG/ML Negative 0.10 - 0.77 NG/ML High Risk0.78 NG/ML or Greater PositiveThe WHO defined the cutoff (definition for diagnosis of CO)for this method as 0.78 ng/ml.Responsible Observer: Troponin I Troponin I 600.1101 (G) NOTES See Note None Note: ADD-ON Reviewed by Maya Barron MD on 12/25; All test results are final unless otherwise noted. Reported Physicians [facility] Ordered by Maya Barron MD on 12/23/2020 Collected: 12/23/2020 Reported: 12/23/2020 09:39 Reported Physicians See Note None Note: Reported Physicians:Ordering: Aj Ferreiraending: Jos Rivas To: Maya Barron Reviewed by Maya Barron MD on 12/25; All test results are final unless otherwise noted. MAGNESIUM [facility] Ordered by Maya Barron MD on 12/23/2020 Collected: 12/23/2020 Reported: 12/23/2020 09:11 Magnesium SerPl-mCnc 2.1 MilliGramsPerDeciLiter_[Mass_Concentration_Units] (1.3-2.7) N (Normal) Note: Responsible Observer: Magnesium Ma gnesium 400.3300 (G) NOTES See Note None Note: ADD-ON Reviewed by Maya Barron MD on 12/25; All test results are final unless otherwise noted. Reported Physicians [facility] Ordered by Maya Barron MD on 12/23/2020 Collected: 12/23/2020 Reported: 12/23/2020 09:11 Reported Physicians See Note None Note: Reported Physicians:Ordering: Aj Ferreiraending: Jos Rivas To: Maya Barron Reviewed by Maya Barron MD on 12/25; All test results are final unless otherwise noted. D-DIMER [facility] Ordered by Maya Barron MD on 12/23/2020 Collected: 12/23/2020 Reported: 12/23/2020 09:39 D Dimer PPP-aCnc 0.45 MilliGramsPerLiter_[Mass_Concentration_Units] (0.0-0.50) N (Normal) Note: @ Has QC been run for this test to day? YESPLEASE NOTE: THIS TEST WAS PERFORMED USING A PARTICLE-ENHANCED, IMMUNOTURBIDIMETRIC ASSAY AND HAS A SINGLE,CLINICALLY DERIVED CUTOFF OF 0.50 MG/L.Responsible Observer: D-DIMER D- DIMER 200.0901 (A) NOTES See Note None Note: Is test to R/O PE, DVT or VTE? Y Reviewed by Maya Barron MD on 12/25; All test results are final unless otherwise noted. Reported Physicians [facility] Ordered by Maya Barron MD on 12/23/2020 Collected: 12/23/2020 Reported: 12/23/2020 09:39 Reported Physicians See Note None Note: Reported Physicians:Ordering: Aj Ferreiraending: Jos Rivas To: Maya Barron Reviewed by Maya Barron MD on 12/25; All test results are final unless otherwise noted. CBC W AUTO DIFF [facility] Ordered by Maya Barron MD on 12/23/2020 Collected: 12/23/2020 Reported: 12/23/2020 08:09 MCV BldCo Auto 89 FemtoLiter_[SI_Volume_Units] (80-96) N (Normal) Note: Responsible Observer: MCV MCV 100 .0600 (B) RDW RBC Auto 12 percent (11-15) N (Normal) Note: Responsible Observer: RDW RDW 100 .0900 (B) Manual diff Bld NO None Note: Responsible Observer: CBC Manual D ifferential Added 100.1990 (B) PMV Bld 9.3 FemtoLiter_[SI_Volume_Units] (9.1-13.1) N (Normal) Note: Responsible Observer: MPV MPV 100 .1100 (B) Imm Granulocytes Bld Ql Auto See Note (0-2) N (Normal) Note: [id number] Ob server support technician: IG% IG% 100.1375 (B) Hct VFr Bld Auto 32.1 percent (37-47) L (Low) Note: Responsible Observer: HEMATOCRIT H EMATOCRIT 100.0500 (B) MCHC BldCo-mCnc 34 GramsPerDeciLiter_[Mass_Concentration_Units] (33-37) N (Normal) Note: Responsible Observer: MCHC MCHC 1 00.0800 (B) Imm Granulocytes # Bld Auto 0.1 Unit (0-0.1) None Note: Responsible Observer: IG# IG# 100 .1400 (B) Monocytes/leuk NFr Bld Auto 9.0 percent (4-12) N (Normal) Note: Responsible Observer: MONO % MONO % 100.1225 (B) Hgb Bld-sCnc 11.0 GramsPerDeciLiter_[Mass_Concentration_Units] (10.7-15.4) N (Normal) Note: Responsible Observer: HGB HEMOGLOB IN 100.0400 (B) WBC # Bld Auto 9.3 ThousandsPerMicroLiter_[Number_Concentration_Units] (4.45-10 .71) N (Normal) Note: Responsible Observer: WBC WHITE BL OOD COUNT 100.0100 (E) Basophils # Bld Auto 0.0 Unit (0.0-0.2) N (Normal) Note: Responsible Observer: BASO # BASO# 100.1350 (B) Basophils/leuk NFr Bld Auto 0.3 percent (0.4-1.3) L (Low) Note: Responsible Observer: BASO % BASO % 100.1325 (B) Eosinophil # Bld Auto 0.1 Unit (0.0-0.5) N (Normal) Note: Responsible Observer: EOS # EOS# 100.1300 (D) Eosinophil/leuk NFr Bld Auto 1.2 percent (0-7) N (Normal) Note: Responsible Observer: EOS % EOS % 100.1275 (B) Lymphocytes # Bld Auto 2.5 Unit (0.6-4.6) N (Normal) Note: Responsible Observer: LYMPH # LYMP H# 100.1200 (B) Lymphocytes/leuk NFr Bld Auto 26.8 percent (14-46) N (Normal) Note: Responsible Observer: LYMPH % LYMP H % 100.1175 (B) Monocytes # Bld Auto 0.8 Unit (0.2-1.2) N (Normal) Note: Responsible Observer: MONO # MONO# 100.1250 (C) Neutrophils # Bld Auto 5.8 Unit (1.7-7.6) N (Normal) Note: Responsible Observer: NEUT# NEUT# 100.1150 (B) Neutrophils/leuk NFr Bld Auto 62.1 percent (41-77) N (Normal) Note: Responsible Observer: NEUT% NEUT% 100.1125 (B) Platelet # Bld Auto 236 ThousandsPerMicroLiter_[Number_Concentration_Units] (130-472 ) N (Normal) Note: Responsible Observer: PLATELET COU NT PLATELET COUNT 100.1000 (D) MCH RBC Qn Auto 31 [place]_[SI_Mass_Units] (27-31) N (Normal) Note: Responsible Observer: MCH MCH 100 .0700 (B) RBC # Bld Auto 3.61 MillionsPerMicroLiter_[Number_Concentration_Units] (4.20-5.4 0) L (Low) Note: Responsible Observer: RBC Red Bloo d Count 100.0300 (B) NUCLEATED RED BLOOD CELL# 0 Unit None Note: Responsible Observer: NRBC# NUCLEA VICTOR M RBC 100.1362 (A) NUCLEATED RED BLOOD CELL 0 percent None Note: Responsible Observer: NRBC% NRBC% 100.1360 (B) Reviewed by Maya Barron MD on 12/25; All test results are final unless otherwise noted. [facility] Ordered by Maya Barron MD on 12/23/2020 Collected: 12/23/2020 Reported: 12/23/2020 08:29 ALT SerPl w P-5'-P-cCnc 11 enzyme_unit_per_liter (10-49) N (Normal) Note: Responsible Observer: SGPT/ALT SGP T/ALT 400.1750 (G) Calcium SerPl-mCnc 8.1 MilliGramsPerDeciLiter_[Mass_Concentration_Units] (8.5-10.1) L (Low) Note: Responsible Observer: Calcium Calc ium 400.2500 (G) Bilirub SerPl-mCnc 0.2 MilliGramsPerDeciLiter_[Mass_Concentration_Units] (0.3-1.2) L (Low) Note: Responsible Observer: T KELLIE Total Bilirubin 400.2600 (G) CO2 SerPl-sCnc 21 MilliMolesPerLiter_[Substance_Concentration_Units] (20-31) N (Normal) Note: Responsible Observer: CO2 Carbon D ioxide 400.1400 (G) Chloride SerPl-sCnc 108 MilliMolesPerLiter_[Substance_Concentration_Units] (99-109) N (Normal) Note: Responsible Observer: Chloride Chl oride 400.1250 (G) Glucose SerPl-mCnc 95 MilliGramsPerDeciLiter_[Mass_Concentration_Units] (74-106) N (Normal) Note: Responsible Observer: Glucose Gluc ose 400.1500 (G) Potassium SerPl-sCnc 3.4 MilliMolesPerLiter_[Substance_Concentration_Units] (3.5-5.5) L (Low) Note: Responsible Observer: K Potassium 400.1210 (G) Prot SerPl-mCnc 6.6 GramsPerDeciLiter_[Mass_Concentration_Units] (5.7-8.2) N (Normal) Note: Responsible Observer: TP Total Pro tein 400.2800 (G) Sodium SerPl-sCnc 139 MilliMolesPerLiter_[Substance_Concentration_Units] (132-146) N (Normal) Note: Responsible Observer: Sodium Sodiu m 400.1100 (G) AST SerPl w P-5'-P-cCnc 10 enzyme_unit_per_liter (0-33) N (Normal) Note: Responsible Observer: SGOT / AST S GOT / AST 400.1900 (G) BUN SerPl-mCnc 7 MilliGramsPerDeciLiter_[Mass_Concentration_Units] (9-23) L (Low) Note: Responsible Observer: BUN Blood Ur ea Nitrogen 400.1000 (G) Anion Gap SerPl-sCnc 13 MilliMolesPerLiter_[Substance_Concentration_Units] (8-16) N (Normal) Note: Responsible Observer: ANION GAP AN ION GAP 400.1402 (E) Albumin SerPl BCP-mCnc 2.7 GramsPerDeciLiter_[Mass_Concentration_Units] (3.2-4.8) L (Low) Note: Responsible Observer: Albumin [place] min 400.2700 (G) ALP SerPl-cCnc 106 enzyme_unit_per_liter (45-129) N (Normal) Note: Responsible Observer: ALP Alkaline Phosphatase 400.2000 (G) GFR/BSA.pred SerPlBld-ArVRat Greater Than 60 (ABOVE 60) None Note: Responsible Observer: GFR Glomerul ar Filt Rate Calc 400.1605 (D) Creatinine 0.5 MilliGramsPerDeciLiter_[Mass_Concentration_Units] (0.5-1.1) N (Normal) Note: Responsible Observer: Creatinine C reatinine 400.1600 (G) Reviewed by Maya Barron MD on 12/25; All test results are final unless otherwise noted. Reported Physicians [facility] Ordered by Maya Barron MD on 12/23/2020 Collected: 12/23/2020 Reported: 12/23/2020 08:29 Reported Physicians See Note None Note: Reported Physicians:Ordering: Aj Ferreiraending: Jos Rivas To: Maya Barron Reviewed by Maya Barron MD on 12/25; All test results are final unless otherwise noted. PT/PTT [facility] Ordered by Maya Barron MD on 12/16/2020 Collected: 12/16/2020 Reported: 12/16/2020 16:30 INR 1.07 (0.93 - 1.23) None Note: Responsible Observer: (DW) PROTIME 14.0 SECONDS (11.0 - 15.5) None Note: Responsible Observer: (DW) PTT 29.2 SECONDS (24.8 - 36.7) None Note: BLDo INR INTERPRETATIONBLDx Therapeutic range for Coumadin and related oral anticoagulants. - International Normalized Ratio (INR): 2.0 - 3.0 for Venous Thrombosis, Pulmonary Embolus, Tissue heart valves, Acute CO Atrial Fibrillation, Valvular heart disease and recurrent Systemic Embolism. - International Normalized Ratio (INR): 2.5 - 3.5 for Mechanical Prosthetic valve.Responsible Observer: (DW) Reviewed by Maya Barron MD on 12/18; All test results are final unless otherwise noted. Reported Physicians [facility] Ordered by Maya Barron MD on 12/16/2020 Collected: 12/16/2020 Reported: 12/16/2020 16:30 Reported Physicians See Note None Note: Reported Physicians:Ordering: Sunshine ALONSOending: ALLYN PAPPASConsulting: Rubén BARRON To: Miguel Gonsalez To: ALLYN PAPPAS Reviewed by Maya Barron MD on 12/18; All test results are final unless otherwise noted. CBC W/AUTOMATED DIFF [facility] Ordered by Maya Barron MD on 12/16/2020 Collected: 12/16/2020 Reported: 12/16/2020 16:00 #BASO 0.02 10\\^3/uL (0.00 - 0.20) None Note: Responsible Observer: (DW) #EOS 0.09 10\\^3/uL (0.00 - 0.70) None Note: Responsible Observer: (DW) #IG 0.03 10\\^3/uL (0.00 - 0.10) None Note: Responsible Observer: (DW) #LYMPH 1.66 10\\^3/uL (0.60 - 3.40) None Note: Responsible Observer: (DW) #MONO 0.58 10\\^3/uL (0.00 - 0.90) None Note: Responsible Observer: (DW) #NEUT 5.50 10\\^3/uL (2.00 - 6.90) None Note: Responsible Observer: (DW) #NRBC 0.00 10\\^3/uL (0.00 - 0.00) None Note: Responsible Observer: (DW) %IG 0.4 % (0.0 - 0.0) H (High) Note: Responsible Observer: (DW) %NRBC 0.0 % (0.0 - 0.0) None Note: Responsible Observer: (DW) BASO 0.3 % (0.0 - 2.5) None Note: Responsible Observer: (DW) CBC W/AUTOMATED DIFF See Note None Note: COMPLETE BLOOD COUNTResponsibl e Observer: (DW) EOS 1.1 % (0.0 - 7.0) None Note: Responsible Observer: (DW) HEMATOCRIT 34.2 % (37.0 - 47.0) L (Low) Note: Responsible Observer: (DW) HEMOGLOBIN 11.7 g/dL (12.0 - 16.0) L (Low) Note: Responsible Observer: (DW) LYMPH 21.1 % (25.0 - 40.0) L (Low) Note: Responsible Observer: (DW) MANUAL DIFF NOT INDICATED None Note: Responsible Observer: (DW) MCH 30.7 pg (27.0 - 34.0) None Note: Responsible Observer: (DW) MCHC 34.2 g/dL (31.0 - 36.0) None Note: Responsible Observer: (DW) MCV 89.8 fL (81.0 - 101) None Note: Responsible Observer: (DW) MONO 7.4 % (3.0 - 8.0) None Note: Responsible Observer: (DW) MPV 9.2 fL (7.4 - 10.4) None Note: Responsible Observer: (DW) NEUT 69.7 % (37.0 - 80.0) None Note: Responsible Observer: (DW) PLATELETS 279 10\\^3/uL (150 - 450) None Note: Responsible Observer: (DW) RBC 3.81 10\\^6/uL (4.20 - 5.40) L (Low) Note: Responsible Observer: (DW) RBC MORPH NOT INDICATED None Note: Responsible Observer: (DW) RDW 12.1 % (11.5 - 14.5) None Note: Responsible Observer: (DW) WBC 7.9 10\\^3/uL (4.2 - 11.0) None Note: Responsible Observer: (DW) Reviewed by Maya Barron MD on 12/18; All test results are final unless otherwise noted. Reported Physicians [facility] Ordered by Maya Barron MD on 12/16/2020 Collected: 12/16/2020 Reported: 12/16/2020 16:00 Reported Physicians See Note None Note: Reported Physicians:Ordering: Sunshine ALONSOending: ALLYN PAPPASConsulting: Rubén BARRON To: Miguel Gonsalez To: ALLYN PAPPAS Reviewed by Maya Barron MD on 12/18; All test results are final unless otherwise noted. COMPREHENSIVE METABOLIC PANEL [facility] Ordered by Maya Barron MD on 12/16/2020 Collected: 12/16/2020 Reported: 12/16/2020 16:30 A/G RATIO 1.3 (0.8 - 2.0) None Note: Responsible Observer: (DW) AFR AMER GFR >60 mL/min None Note: Male GFR Interprentation 20- 49 yrs >60 mL/min Normal 50-59 yrs >56 mL/min Normal 60-69 yrs >49 mL/min Normal 70-79yrs >42 mL/min Normal 80 and above >35 mL/min Normal Female GFR Interpretation 20-39 yrs >60 mL/min Normal 40-49 yrs >58 mL/min Normal 50-59 yrs >51 mL/min Normal 60-69 yrs >45 mL/min Normal 70-79 yrs >39 mL/min Normal 80 and above >32 mL/min NormalResponsible Observer: (DW) AGE 20 yrs None Note: Responsible Observer: (DW) ALBUMIN 3.7 G/DL (3.9 - 5.0) L (Low) Note: Responsible Observer: (DW) ALKALINE PHOS 106 U/L (38 - 126) None Note: Responsible Observer: (DW) ANION GAP 12.0 mmol/L (8.0 - 16.0) None Note: Responsible Observer: (DW) BUN 6 MG/DL (7 - 21) L (Low) Note: Responsible Observer: (DW) BUN/CREAT 12 (8 - 27) None Note: Responsible Observer: (DW) CALCIUM 9.0 MG/DL (8.4 - 10.2) None Note: Responsible Observer: (DW) CHLORIDE 104 mEq/L (98 - 107) None Note: Responsible Observer: (DW) CO2 19 MEQ/L (22 - 30) L (Low) Note: Responsible Observer: (DW) COMPREHENSIVE METABOLIC PANEL See Note None Note: COMPREHENSIVE METABOLIC PANELR esponsible Observer: (DW) CREATININE 0.5 MG/DL (0.7 - 1.5) L (Low) Note: Responsible Observer: (DW) GLOBULIN 2.9 GM/DL (2.4 - 3.2) None Note: Responsible Observer: (DW) GLUCOSE 77 MG/DL (70 - 99) None Note: Responsible Observer: (DW) NON-AA GFR >60 mL/min None Note: Responsible Observer: (DW) POTASSIUM 4.0 mEq/L (3.6 - 5.0) None Note: Responsible Observer: (DW) SGOT/AST 15 U/L (5 - 40) None Note: Responsible Observer: (DW) SGPT/ALT 6 U/L (7 - 56) L (Low) Note: Responsible Observer: (DW) SODIUM 135 mEq/L (134 - 153) None Note: Responsible Observer: (DW) TOTAL BILI <0.7 MG/DL (0.2 - 1.3) None Note: Responsible Observer: (DW) TOTAL PROTEIN 6.6 G/DL (6.3 - 8.2) None Note: Responsible Observer: (ABIOLA) Reviewed by Maya Barron MD on 12/18; All test results are final unless otherwise noted. Reported Physicians [facility] Ordered by Maya Barron MD on 12/16/2020 Collected: 12/16/2020 Reported: 12/16/2020 16:30 Reported Physicians See Note None Note: Reported Physicians:Ordering: Sunshine ALONSOending: ALLYN PAPPASConsulting: Rubén BARRON To: Miguel Gonsalez To: ALLYN PAPPAS Reviewed by Maya Barron MD on 12/18; All test results are final unless otherwise noted. TROPONIN T [facility] Ordered by Maya Barron MD on 12/16/2020 Collected: 12/16/2020 Reported: 12/16/2020 16:30 TROPONIN T <0.01 NG/ML (0.00 - 0.10) None Note: TROPONIN T0.1 ng/ml Recommended as the clinical threshold value forTroponin T.Responsible Observer: (ABIOLA) Reviewed by Maya Barron MD on 12/18; All test results are final unless otherwise noted. Reported Physicians [facility] Ordered by Maya Barron MD on 12/16/2020 Collected: 12/16/2020 Reported: 12/16/2020 16:30 Reported Physicians See Note None Note: Reported Physicians:Ordering: VENUS ALONSOAttending: ALLYN PAPPASConsulting: Rubén BARRON To: Miguel Gonsalez To: ALLYN PAPPAS Reviewed by Maya Barron MD on 12/18; All test results are final unless otherwise noted. LIPASE SERUM [facility] Ordered by Maya Barron MD on 12/16/2020 Collected: 12/16/2020 Reported: 12/16/2020 16:29 LIPASE 27 U/L (13 - 60) None Note: Responsible Observer: (DW) Reviewed by Maya Barron MD on 12/18; All test results are final unless otherwise noted. Reported Physicians [facility] Ordered by Maya Barron MD on 12/16/2020 Collected: 12/16/2020 Reported: 12/16/2020 16:29 Reported Physicians See Note None Note: Reported Physicians:Ordering: VENUS ALONSOAttending: ALLYN PAPPASConopaling: Rubén BARRON To: Miguel Gonsalez To: ALLYN PAPPAS Reviewed by Maya Barron MD on 12/18; All test results are final unless otherwise noted. TSH HIGHLY SENSITIVE [facility] Ordered by Maya Barron MD on 12/16/2020 Collected: 12/16/2020 Reported: 12/16/2020 17:28 TSH 1.41 uIU/mL (0.47 - 5.01) None Note: Responsible Observer: (DW) Reviewed by Maya Barron MD on 12/18; All test results are final unless otherwise noted. Reported Physicians [facility] Ordered by Maya Barron MD on 12/16/2020 Collected: 12/16/2020 Reported: 12/16/2020 17:28 Reported Physicians See Note None Note: Reported Physicians:Ordering: Sunshine ALONSOending: ALLYN PAPPASConsulting: MAYA BARRONCopyifan To: Miguel Gonsalez To: ALLYN PAPPAS Reviewed by Maya Barron MD on 12/18; All test results are final unless otherwise noted. CBC W AUTO DIFF [facility] Ordered by Maya Barron MD on 12/13/2020 Collected: 12/13/2020 Reported: 12/13/2020 18:29 MCV BldCo Auto 90 FemtoLiter_[SI_Volume_Units] (80-96) N (Normal) Note: Responsible Observer: MCV MCV 100 .0600 (B) RDW RBC Auto 12 percent (11-15) N (Normal) Note: Responsible Observer: RDW RDW 100 .0900 (B) Manual diff Bld NO None Note: Responsible Observer: CBC Manual D ifferential Added 100.1990 (B) PMV Bld 9.2 FemtoLiter_[SI_Volume_Units] (9.1-13.1) N (Normal) Note: Responsible Observer: MPV MPV 100 .1100 (B) Imm Granulocytes Bld Ql Auto See Note (0-2) N (Normal) Note: [id number] Ob server support technician: IG% IG% 100.1375 (B) Hct VFr Bld Auto 32.9 percent (37-47) L (Low) Note: Responsible Observer: HEMATOCRIT H EMATOCRIT 100.0500 (B) MCHC BldCo-mCnc 34 GramsPerDeciLiter_[Mass_Concentration_Units] (33-37) N (Normal) Note: Responsible Observer: MCHC MCHC 1 00.0800 (B) Imm Granulocytes # Bld Auto 0.0 Unit (0-0.1) None Note: Responsible Observer: IG# IG# 100 .1400 (B) Monocytes/leuk NFr Bld Auto 7.2 percent (4-12) N (Normal) Note: Responsible Observer: MONO % MONO % 100.1225 (B) Hgb Bld-sCnc 11.2 GramsPerDeciLiter_[Mass_Concentration_Units] (10.7-15.4) N (Normal) Note: Responsible Observer: HGB HEMOGLOB IN 100.0400 (B) WBC # Bld Auto 8.5 ThousandsPerMicroLiter_[Number_Concentration_Units] (4.45-10 .71) N (Normal) Note: Responsible Observer: WBC WHITE BL OOD COUNT 100.0100 (E) Basophils # Bld Auto 0.0 Unit (0.0-0.2) N (Normal) Note: Responsible Observer: BASO # BASO# 100.1350 (B) Basophils/leuk NFr Bld Auto 0.2 percent (0.4-1.3) L (Low) Note: Responsible Observer: BASO % BASO % 100.1325 (B) Eosinophil # Bld Auto 0.0 Unit (0.0-0.5) N (Normal) Note: Responsible Observer: EOS # EOS# 100.1300 (D) Eosinophil/leuk NFr Bld Auto 0.5 percent (0-7) N (Normal) Note: Responsible Observer: EOS % EOS % 100.1275 (B) Lymphocytes # Bld Auto 1.3 Unit (0.6-4.6) N (Normal) Note: Responsible Observer: LYMPH # LYMP H# 100.1200 (B) Lymphocytes/leuk NFr Bld Auto 14.7 percent (14-46) N (Normal) Note: Responsible Observer: LYMPH % LYMP H % 100.1175 (B) Monocytes # Bld Auto 0.6 Unit (0.2-1.2) N (Normal) Note: Responsible Observer: MONO # MONO# 100.1250 (C) Neutrophils # Bld Auto 6.5 Unit (1.7-7.6) N (Normal) Note: Responsible Observer: NEUT# NEUT# 100.1150 (B) Neutrophils/leuk NFr Bld Auto 76.9 percent (41-77) N (Normal) Note: Responsible Observer: NEUT% NEUT% 100.1125 (B) Platelet # Bld Auto 243 ThousandsPerMicroLiter_[Number_Concentration_Units] (130-472 ) N (Normal) Note: Responsible Observer: PLATELET COU NT PLATELET COUNT 100.1000 (D) MCH RBC Qn Auto 31 PicoGram_[SI_Mass_Units] (27-31) N (Normal) Note: Responsible Observer: MCH MCH 100 .0700 (B) RBC # Bld Auto 3.65 MillionsPerMicroLiter_[Number_Concentration_Units] (4.20-5.4 0) L (Low) Note: Responsible Observer: RBC Red Bloo d Count 100.0300 (B) NUCLEATED RED BLOOD CELL# 0 Unit None Note: Responsible Observer: NRBC# NUCLEA VICTOR M RBC 100.1362 (A) NUCLEATED RED BLOOD CELL 0 percent None Note: Responsible Observer: NRBC% NRBC% 100.1360 (B) Reviewed by Maya Barron MD on 12/15; All test results are final unless otherwise noted. PT/PTT [facility] Ordered by Maya Barron MD on 12/13/2020 Collected: 12/13/2020 Reported: 12/13/2020 18:52 Screen aPTT 24.5 second (22.7-31.6) N (Normal) Note: Responsible Observer: PTT PTT 200 .0500 (A) INR 1.0 (0.9-1.1) N (Normal) Note: THE INR IS OPERATIONALLY DEFINED F OR FRESH PLASMA FROMPATIENTS STABILIZED ON ORAL ANTICOAGULANTS.ROUTINE ANTICOAGULANT THERAPY 2.0-3.0RECURRENT SYSTEMIC EMBOLISM/HEART VALVE REPLACEMENT 2.5-3.5Responsible Observer: INR INR 200.0400 (A) Prothrombin Time (Patient) 10.7 second (9.6-12.3) N (Normal) Note: Responsible Observer: PT Prothromb in Time 200.0300 (A) Reviewed by Maya Barron MD on 12/15; All test results are final unless otherwise noted. CMP [facility] Ordered by Maya Barron MD on 12/13/2020 Collected: 12/13/2020 Reported: 12/13/2020 19:02 ALT SerPl w P-5'-P-cCnc 9 enzyme_unit_per_liter (10-49) L (Low) Note: Responsible Observer: SGPT/ALT SGP T/ALT 400.1750 (G) Calcium SerPl-mCnc 7.9 MilliGramsPerDeciLiter_[Mass_Concentration_Units] (8.5-10.1) L (Low) Note: Responsible Observer: Calcium Calc ium 400.2500 (G) Bilirub SerPl-mCnc 0.3 MilliGramsPerDeciLiter_[Mass_Concentration_Units] (0.3-1.2) N (Normal) Note: Responsible Observer: T KELLIE Total Bilirubin 400.2600 (G) CO2 SerPl-sCnc 21 MilliMolesPerLiter_[Substance_Concentration_Units] (20-31) N (Normal) Note: Responsible Observer: CO2 Carbon D ioxide 400.1400 (G) Chloride SerPl-sCnc 113 MilliMolesPerLiter_[Substance_Concentration_Units] (99-109) H (High) Note: Responsible Observer: Chloride Chl oride 400.1250 (G) Glucose SerPl-mCnc 83 MilliGramsPerDeciLiter_[Mass_Concentration_Units] (74-106) N (Normal) Note: Responsible Observer: Glucose Gluc ose 400.1500 (G) Potassium SerPl-sCnc 3.5 MilliMolesPerLiter_[Substance_Concentration_Units] (3.5-5.5) N (Normal) Note: Responsible Observer: K Potassium 400.1210 (G) Prot SerPl-mCnc 6.2 GramsPerDeciLiter_[Mass_Concentration_Units] (5.7-8.2) N (Normal) Note: Responsible Observer: TP Total Pro tein 400.2800 (G) Sodium SerPl-sCnc 142 MilliMolesPerLiter_[Substance_Concentration_Units] (132-146) N (Normal) Note: Responsible Observer: Sodium Sodiu m 400.1100 (G) AST SerPl w P-5'-P-cCnc 11 enzyme_unit_per_liter (0-33) N (Normal) Note: Responsible Observer: SGOT / AST S GOT / AST 400.1900 (G) BUN SerPl-mCnc 5 MilliGramsPerDeciLiter_[Mass_Concentration_Units] (9-23) L (Low) Note: Responsible Observer: BUN Blood Ur ea Nitrogen 400.1000 (G) Anion Gap SerPl-sCnc 12 MilliMolesPerLiter_[Substance_Concentration_Units] (8-16) N (Normal) Note: Responsible Observer: ANION GAP AN ION GAP 400.1402 (E) Albumin SerPl BCP-mCnc 2.6 GramsPerDeciLiter_[Mass_Concentration_Units] (3.2-4.8) L (Low) Note: Responsible Observer: Albumin [place]bu min 400.2700 (G) ALP SerPl-cCnc 102 enzyme_unit_per_liter (45-129) N (Normal) Note: Responsible Observer: ALP Alkaline Phosphatase 400.2000 (G) GFR/BSA.pred SerPlBld-ArVRat Greater Than 60 (ABOVE 60) None Note: Responsible Observer: GFR Glomerul ar Filt Rate Calc 400.1605 (D) Creatinine 0.5 MilliGramsPerDeciLiter_[Mass_Concentration_Units] (0.5-1.1) N (Normal) Note: Responsible Observer: Creatinine C reatinine 400.1600 (G) Reviewed by Maya Barron MD on 12/15; All test results are final unless otherwise noted. Reported Physicians [facility] Ordered by Maya Barron MD on 12/13/2020 Collected: 12/13/2020 Reported: 12/13/2020 19:02 Reported Physicians See Note None Note: Reported Physicians:Ordering: Edgar Omerttending: Kevin Orozco To: Maya Barron Reviewed by Maya Barron MD on 12/15; All test results are final unless otherwise noted. TSH [facility] Ordered by Maya Barron MD on 12/13/2020 Collected: 12/13/2020 Reported: 12/13/2020 19:02 TSH SerPl DL<=0.005 mIU/L-aCnc 1.02 MicroInternationalUnitsPerMilliLiter_[Arbitrary_Con (0.35-5. 50) N (Normal) Note: Responsible Observer: TSH TSH 600 .7055 (D) Reviewed by Maya Barron MD on 12/15; All test results are final unless otherwise noted. Reported Physicians [facility] Ordered by Maya Barron MD on 12/13/2020 Collected: 12/13/2020 Reported: 12/13/2020 19:02 Reported Physicians See Note None Note: Reported Physicians:Ordering: Edgar Omerttending: Kevin Orozco To: Maya Barron Reviewed by Maya Barron MD on 12/15; All test results are final unless otherwise noted. TROPONIN [facility] Ordered by Maya Barron MD on 12/13/2020 Collected: 12/13/2020 Reported: 12/13/2020 19:02 Troponin I SerPl-mCnc Less Than 0.015 (0.00-0.09) N (Normal) Note: Less than 0.09 NG/ML Negative 0.10 - 0.77 NG/ML High Risk0.78 NG/ML or Greater PositiveThe WHO defined the cutoff (definition for diagnosis of CO)for this method as 0.78 ng/ml.Responsible Observer: Troponin I Troponin I 600.1101 (G) Reviewed by Maya Barron MD on 12/15; All test results are final unless otherwise noted. Reported Physicians [facility] Ordered by Maya Barron MD on 12/13/2020 Collected: 12/13/2020 Reported: 12/13/2020 19:02 Reported Physicians See Note None Note: Reported Physicians:Ordering: Conchis Omerending: Kevin Orozco To: Maya Barron Reviewed by Maya Barron MD on 12/15; All test results are final unless otherwise noted. ADD ON MICROSCOPIC [facility] Ordered by Maya Barron MD on 12/13/2020 Collected: 12/13/2020 Reported: 12/13/2020 18:32 ADD ON MICROSCOPIC See Note (0-5) None Note: NOTES OTHER/NOT INTERPRETED Bacteria UrnS Ql Micro MODERATE AMOUNT Bacteria UrnS Ql Micro MODERATE AMOUNT Bacteria UrnS Ql Micro L Bacteria UrnS Ql Micro Bacteria UrnS Ql Micro Bacteria UrnS Ql Micro Bacteria UrnS Ql Micro [id number] Bacteria UrnS Ql Micro Bacteria UrnS Ql Micro MODERATE AMOUNT Cells UrnS Micro Cells UrnS Micro MODERATE Cells UrnS Micro MODERATE Cells UrnS Micro MODERATE Cells UrnS Micro L Cells UrnS Micro Cells UrnS Micro Cells UrnS Micro Cells UrnS Micro RBC # Ur Manual OCCASIONAL WBC # Ur Manual 15-20 A Culture has been added to this specimen per established criteriaReason for ordering culture: Abnormal findings UA@12/13/20 1826: UA W/ MICRO added. RFLXG = UMIC CIF.Method of Collection:: VoidedResponsible Observer: RBC RBC 300.4900 (A) Reviewed by Maya Barron MD on 12/15; All test results are final unless otherwise noted. Reported Physicians [facility] Ordered by Maya Barron MD on 12/13/2020 Collected: 12/13/2020 Reported: 12/13/2020 18:33 Reported Physicians See Note None Note: Reported Physicians:Ordering: Conchis Omerending: Pir ErnestoetCopy To: Maya Barron Reviewed by Maya Barron MD on 12/15; All test results are final unless otherwise noted. UA W/ CULTURE IF ABNORMAL [facility] Ordered by Maya Barron MD on 12/13/2020 Collected: 12/13/2020 Reported: 12/13/2020 18:32 Urobilinogen Ur Ql See Note (0.2-1 EU/dl) None Note: 0.2 EU/dl0.2 [id number] E U/dlResponsible Observer: UROBILINOGEN UROBILINOGEN 300.4500 (C) RBC # Ur Strip NEGATIVE (NEGATIVE) None Note: Responsible Observer: BLOOD BLOOD 300.4652 (C) Prot Ur Ql Strip See Note (NEGATIVE) None Note: [id number] EResponsible Observer: PROTEIN PROTEIN 300.3750 (C) Ketones Ur Ql Strip See Note (NEGATIVE) None Note: [id number] EResponsible Observer: KETONE KETONE 300.3900 (C) Bilirub Ur Ql Strip.auto See Note (NEGATIVE) None Note: [id number] EResponsible Observer: BILIRUBIN BILIRUBIN 300.4550 (C) Glucose Ur Strip.auto-mCnc NEGATIVE (NEGATIVE) None Note: Responsible Observer: GLUCOSE GLUC OSE 300.3850 (C) Appearance Ur See Note (CLEAR) None Note: CLEARCLEARLCLEARResponsible Observ er: APPEARANCE APPEARANCE 300.3400 (A) Color Ur See Note None Note: YELLOWYELLOWLYELLOWResponsible Obs erver: COLOR COLOR 300.3330 (A) Leukocyte esterase Ur Ql Strip See Note (NEGATIVE) None Note: [id number]@DO MICR O!!!!A Culture has been added to this specimen per established criteriaResponsible Observer: LEUKOCYTES LEUKOCYTES 300.3576 (C) Nitrite Ur Ql Strip See Note (NEGATIVE) None Note: [id number] EResponsible Observer: NITRITE NITRITE 300.3652 (B) pH Ur Strip 8.0 (5-8) None Note: Responsible Observer: PH PH 300.3 450 (C) Sp Gr Ur Refractometry 1.005 (1.005-1.030) None Note: Responsible Observer: SP GRAVITY U RINE SPECIFIC GRAVITY-MAN 300.3475 (C) URINE MICROSCOPIC? (CIF) Microscopic Added None Note: Responsible Observer: UA URINE SHAWN ROSCOPIC PENDING 300.4665 (D) NOTES See Note None Note: Reason for ordering culture: Abnor mal findings UA@12/13/20 1826: UA W/ MICRO added. RFLXG = UMIC CIF.Method of Collection:: Voided Reviewed by Maya Barron MD on 12/15; All test results are final unless otherwise noted. Urine culture [facility] Ordered by Maya Barron MD on 12/13/2020 Collected: 12/13/2020 Reported: 12/14/2020 13:24 Bacteria Ur Cult See Note None Note: NGNo growth.L1NG NOTES See Note None Note: @12/13/20 1832: Urine culture adde d. RFLXG = CULT.ADD. Reviewed by Maya Barron MD on 12/15; All test results are final unless otherwise noted. Reported Physicians [facility] Ordered by Maya Barron MD on 12/13/2020 Collected: 12/13/2020 Reported: 12/14/2020 13:24 Reported Physicians See Note None Note: Reported Physicians:Ordering: Conchis Omerending: Kevin Orozco To: Maya Barron Reviewed by Maya Barron MD on 12/15; All test results are final unless otherwise noted. TROPONIN T [facility] Ordered by Maya Barron MD on 12/09/2020 Collected: 12/09/2020 Reported: 12/09/2020 01:32 TROPONIN T <0.01 NG/ML (0.00 - 0.10) None Note: TROPONIN T0.1 ng/ml Recommended as the clinical threshold value forTroponin T.Responsible Observer: (AB) Reviewed by Maya Barron MD on 12/12; All test results are final unless otherwise noted. Reported Physicians [facility] Ordered by Maya Barron MD on 12/09/2020 Collected: 12/09/2020 Reported: 12/09/2020 01:32 Reported Physicians See Note None Note: Reported Physicians:Ordering: MARQUISE TOMLINSON CAttending: MARQUISE SOTOConopaling: Rubén BARRON To: Clare SOTO To: MARQUISE SOTO Reviewed by Maya Barron MD on 12/12; All test results are final unless otherwise noted. TROPONIN T [facility] Ordered by Maya Barron MD on 12/08/2020 Collected: 12/08/2020 Reported: 12/08/2020 22:36 TROPONIN T <0.01 NG/ML (0.00 - 0.10) None Note: TROPONIN T0.1 ng/ml Recommended as the clinical threshold value forTroponin T.Responsible Observer: (AB) Reviewed by Maya Barron MD on 12/12; All test results are final unless otherwise noted. Reported Physicians [facility] Ordered by Maya Barrno MD on 12/08/2020 Collected: 12/08/2020 Reported: 12/08/2020 22:36 Reported Physicians See Note None Note: Reported Physicians:Ordering: MARQUISE TOMLINSON CAttending: MARQUISE SOTOConopaling: Rubén BARRON To: MARQUISE SOTOCopyifan To: MARQUISE SOTO Reviewed by Maya Barrno MD on 12/12; All test results are final unless otherwise noted. COMPREHENSIVE METABOLIC PANEL [facility] Ordered by Maya Barron MD on 12/08/2020 Collected: 12/08/2020 Reported: 12/08/2020 22:36 A/G RATIO 1.4 (0.8 - 2.0) None Note: Responsible Observer: (AB) AFR AMER GFR >60 mL/min None Note: Male GFR Interprentation 20- 49 yrs >60 mL/min Normal 50-59 yrs >56 mL/min Normal 60-69 yrs >49 mL/min Normal 70-79yrs >42 mL/min Normal 80 and above >35 mL/min Normal Female GFR Interpretation 20-39 yrs >60 mL/min Normal 40-49 yrs >58 mL/min Normal 50-59 yrs >51 mL/min Normal 60-69 yrs >45 mL/min Normal 70-79 yrs >39 mL/min Normal 80 and above >32 mL/min NormalResponsible Observer: (AB) AGE 20 yrs None Note: Responsible Observer: (AB) ALBUMIN 3.8 G/DL (3.9 - 5.0) L (Low) Note: Responsible Observer: (AB) ALKALINE PHOS 105 U/L (38 - 126) None Note: Responsible Observer: (AB) ANION GAP 10.0 mmol/L (8.0 - 16.0) None Note: Responsible Observer: (AB) BUN 6 MG/DL (7 - 21) L (Low) Note: Responsible Observer: (AB) BUN/CREAT 15 (8 - 27) None Note: Responsible Observer: (AB) CALCIUM 9.1 MG/DL (8.4 - 10.2) None Note: Responsible Observer: (AB) CHLORIDE 101 mEq/L (98 - 107) None Note: Responsible Observer: (AB) CO2 23 MEQ/L (22 - 30) None Note: Responsible Observer: (AB) COMPREHENSIVE METABOLIC PANEL See Note None Note: COMPREHENSIVE METABOLIC PANELR esponsible Observer: (AB) CREATININE 0.4 MG/DL (0.7 - 1.5) L (Low) Note: Responsible Observer: (AB) GLOBULIN 2.8 GM/DL (2.4 - 3.2) None Note: Responsible Observer: (AB) GLUCOSE 89 MG/DL (70 - 99) None Note: Responsible Observer: (AB) NON-AA GFR >60 mL/min None Note: Responsible Observer: (AB) POTASSIUM 3.7 mEq/L (3.6 - 5.0) None Note: Responsible Observer: (AB) SGOT/AST 13 U/L (5 - 40) None Note: Responsible Observer: (AB) SGPT/ALT 6 U/L (7 - 56) L (Low) Note: Responsible Observer: (AB) SODIUM 134 mEq/L (134 - 153) None Note: Responsible Observer: (AB) TOTAL BILI <0.7 MG/DL (0.2 - 1.3) None Note: Responsible Observer: (AB) TOTAL PROTEIN 6.6 G/DL (6.3 - 8.2) None Note: Responsible Observer: (AB) Reviewed by Maya Barron MD on 12/12; All test results are final unless otherwise noted. Reported Physicians [facility] Ordered by Maya Barron MD on 12/08/2020 Collected: 12/08/2020 Reported: 12/08/2020 22:36 Reported Physicians See Note None Note: Reported Physicians:Ordering: MARQUISE TOMLINSON CAttending: MARQUISE SOTOConconcepcionlting: Rubén BARRON To: Clare SOTO To: MARQUIES SOTO Reviewed by Maya Barron MD on 12/12; All test results are final unless otherwise noted. LIPASE SERUM [facility] Ordered by Maya Barron MD on 12/08/2020 Collected: 12/08/2020 Reported: 12/08/2020 22:32 LIPASE 33 U/L (13 - 60) None Note: Responsible Observer: (AB) Reviewed by Maya Barron MD on 12/12; All test results are final unless otherwise noted. Reported Physicians [facility] Ordered by Maya Barron MD on 12/08/2020 Collected: 12/08/2020 Reported: 12/08/2020 22:32 Reported Physicians See Note None Note: Reported Physicians:Ordering: MARQUISE TOMLINSON CAttending: MARQUISE SOTOConsulting: Rubén BARRON To: Clare SOTO To: MARQUISE SOTO Reviewed by Maya Barron MD on 12/12; All test results are final unless otherwise noted. CBC W AUTO DIFF [facility] Ordered by Maya Barron MD on 12/01/2020 Collected: 12/01/2020 Reported: 12/01/2020 17:38 MCV BldCo Auto 91 FemtoLiter_[SI_Volume_Units] (80-96) N (Normal) Note: Responsible Observer: MCV MCV 100 .0600 (B) RDW RBC Auto 12 percent (11-15) N (Normal) Note: Responsible Observer: RDW RDW 100 .0900 (B) Manual diff Bld NO None Note: Responsible Observer: CBC Manual D ifferential Added 100.1990 (B) PMV Bld 9.5 FemtoLiter_[SI_Volume_Units] (9.1-13.1) N (Normal) Note: Responsible Observer: MPV MPV 100 .1100 (B) Imm Granulocytes Bld Ql Auto See Note (0-2) N (Normal) Note: [id number] Ob server support technician: IG% IG% 100.1375 (B) Hct VFr Bld Auto 31.8 percent (37-47) L (Low) Note: Responsible Observer: HEMATOCRIT H EMATOCRIT 100.0500 (B) MCHC BldCo-mCnc 34 GramsPerDeciLiter_[Mass_Concentration_Units] (33-37) N (Normal) Note: Responsible Observer: MCHC MCHC 1 00.0800 (B) Imm Granulocytes # Bld Auto 0.0 Unit (0-0.1) None Note: Responsible Observer: IG# IG# 100 .1400 (B) Monocytes/leuk NFr Bld Auto 9.2 percent (4-12) N (Normal) Note: Responsible Observer: MONO % MONO % 100.1225 (B) Hgb Bld-sCnc 10.8 GramsPerDeciLiter_[Mass_Concentration_Units] (10.7-15.4) N (Normal) Note: Responsible Observer: HGB HEMOGLOB IN 100.0400 (B) WBC # Bld Auto 8.1 ThousandsPerMicroLiter_[Number_Concentration_Units] (4.45-10 .71) N (Normal) Note: Responsible Observer: WBC WHITE BL OOD COUNT 100.0100 (E) Basophils # Bld Auto 0.0 Unit (0.0-0.2) N (Normal) Note: Responsible Observer: BASO # BASO# 100.1350 (B) Basophils/leuk NFr Bld Auto 0.2 percent (0.4-1.3) L (Low) Note: Responsible Observer: BASO % BASO % 100.1325 (B) Eosinophil # Bld Auto 0.1 Unit (0.0-0.5) N (Normal) Note: Responsible Observer: EOS # EOS# 100.1300 (D) Eosinophil/leuk NFr Bld Auto 0.6 percent (0-7) N (Normal) Note: Responsible Observer: EOS % EOS % 100.1275 (B) Lymphocytes # Bld Auto 1.5 Unit (0.6-4.6) N (Normal) Note: Responsible Observer: LYMPH # LYMP H# 100.1200 (B) Lymphocytes/leuk NFr Bld Auto 17.8 percent (14-46) N (Normal) Note: Responsible Observer: LYMPH % LYMP H % 100.1175 (B) Monocytes # Bld Auto 0.8 Unit (0.2-1.2) N (Normal) Note: Responsible Observer: MONO # MONO# 100.1250 (C) Neutrophils # Bld Auto 5.8 Unit (1.7-7.6) N (Normal) Note: Responsible Observer: NEUT# NEUT# 100.1150 (B) Neutrophils/leuk NFr Bld Auto 71.8 percent (41-77) N (Normal) Note: Responsible Observer: NEUT% NEUT% 100.1125 (B) Platelet # Bld Auto 253 ThousandsPerMicroLiter_[Number_Concentration_Units] (130-472 ) N (Normal) Note: Responsible Observer: PLATELET COU NT PLATELET COUNT 100.1000 (D) MCH RBC Qn Auto 31 PicoGram_[SI_Mass_Units] (27-31) N (Normal) Note: Responsible Observer: MCH MCH 100 .0700 (B) RBC # Bld Auto 3.49 MillionsPerMicroLiter_[Number_Concentration_Units] (4.20-5.4 0) L (Low) Note: Responsible Observer: RBC Red Bloo d Count 100.0300 (B) NUCLEATED RED BLOOD CELL# 0 Unit None Note: Responsible Observer: NRBC# NUCLEA VICTOR M RBC 100.1362 (A) NUCLEATED RED BLOOD CELL 0 percent None Note: Responsible Observer: NRBC% NRBC% 100.1360 (B) Reviewed by Maya Barron MD on 12/04; All test results are final unless otherwise noted. [facility] Ordered by Maya Barron MD on 12/01/2020 Collected: 12/01/2020 Reported: 12/01/2020 18:18 ALT SerPl w P-5'-P-cCnc 9 enzyme_unit_per_liter (10-49) L (Low) Note: Responsible Observer: SGPT/ALT SGP T/ALT 400.1750 (G) Calcium SerPl-mCnc 8.1 MilliGramsPerDeciLiter_[Mass_Concentration_Units] (8.5-10.1) L (Low) Note: Responsible Observer: Calcium Calc ium 400.2500 (G) Bilirub SerPl-mCnc 0.2 MilliGramsPerDeciLiter_[Mass_Concentration_Units] (0.3-1.2) L (Low) Note: Responsible Observer: T KELLIE Total Bilirubin 400.2600 (G) CO2 SerPl-sCnc 22 MilliMolesPerLiter_[Substance_Concentration_Units] (20-31) N (Normal) Note: Responsible Observer: CO2 Carbon D ioxide 400.1400 (G) Chloride SerPl-sCnc 110 MilliMolesPerLiter_[Substance_Concentration_Units] (99-109) H (High) Note: Responsible Observer: Chloride Chl oride 400.1250 (G) Glucose SerPl-mCnc 95 MilliGramsPerDeciLiter_[Mass_Concentration_Units] (74-106) N (Normal) Note: Responsible Observer: Glucose Gluc ose 400.1500 (G) Potassium SerPl-sCnc 3.5 MilliMolesPerLiter_[Substance_Concentration_Units] (3.5-5.5) N (Normal) Note: Responsible Observer: K Potassium 400.1210 (G) Prot SerPl-mCnc 6.3 GramsPerDeciLiter_[Mass_Concentration_Units] (5.7-8.2) N (Normal) Note: Responsible Observer: TP Total Pro tein 400.2800 (G) Sodium SerPl-sCnc 139 MilliMolesPerLiter_[Substance_Concentration_Units] (132-146) N (Normal) Note: Responsible Observer: Sodium Sodiu m 400.1100 (G) AST SerPl w P-5'-P-cCnc 7 enzyme_unit_per_liter (0-33) N (Normal) Note: Responsible Observer: SGOT / AST S GOT / AST 400.1900 (G) BUN SerPl-mCnc 7 MilliGramsPerDeciLiter_[Mass_Concentration_Units] (9-23) L (Low) Note: Responsible Observer: BUN Blood Ur ea Nitrogen 400.1000 (G) Anion Gap SerPl-sCnc 11 MilliMolesPerLiter_[Substance_Concentration_Units] (8-16) N (Normal) Note: Responsible Observer: ANION GAP AN ION GAP 400.1402 (E) Albumin SerPl BCP-mCnc 2.6 GramsPerDeciLiter_[Mass_Concentration_Units] (3.2-4.8) L (Low) Note: Responsible Observer: Albumin [place] min 400.2700 (G) ALP SerPl-cCnc 95 enzyme_unit_per_liter (45-129) N (Normal) Note: Responsible Observer: ALP Alkaline Phosphatase 400.2000 (G) GFR/BSA.pred SerPlBld-ArVRat Greater Than 60 (ABOVE 60) None Note: Responsible Observer: GFR Glomerul ar Filt Rate Calc 400.1605 (D) Creatinine 0.5 MilliGramsPerDeciLiter_[Mass_Concentration_Units] (0.5-1.1) N (Normal) Note: Responsible Observer: Creatinine C reatinine 400.1600 (G) Reviewed by Maya Barron MD on 12/04; All test results are final unless otherwise noted. D-DIMER [facility] Ordered by Maya Barron MD on 12/01/2020 Collected: 12/01/2020 Reported: 12/01/2020 18:19 D Dimer PPP-aCnc 0.42 MilliGramsPerLiter_[Mass_Concentration_Units] (0.0-0.50) N (Normal) Note: @ Has QC been run for this test to day? YESPLEASE NOTE: THIS TEST WAS PERFORMED USING A PARTICLE-ENHANCED, IMMUNOTURBIDIMETRIC ASSAY AND HAS A SINGLE,CLINICALLY DERIVED CUTOFF OF 0.50 MG/L.Responsible Observer: D-DIMER D- DIMER 200.0901 (A) NOTES See Note None Note: Is test to R/O PE, DVT or VTE? Y Reviewed by Maya Barron MD on 12/04; All test results are final unless otherwise noted. Reported Physicians [facility] Ordered by Maya Barron MD on 12/01/2020 Collected: 12/01/2020 Reported: 12/01/2020 18:19 Reported Physicians See Note None Note: Reported Physicians:Ordering: Talisha bauer TimothyAttending: Adam Pardo To: Maya Barron Reviewed by Maya Barron MD on 12/04; All test results are final unless otherwise noted. TROPONIN [facility] Ordered by Maya Barron MD on 12/01/2020 Collected: 12/01/2020 Reported: 12/01/2020 18:18 Troponin I SerPl-mCnc Less Than 0.015 (0.00-0.09) N (Normal) Note: Less than 0.09 NG/ML Negative 0.10 - 0.77 NG/ML High Risk0.78 NG/ML or Greater PositiveThe WHO defined the cutoff (definition for diagnosis of CO)for this method as 0.78 ng/ml.Responsible Observer: Troponin I Troponin I 600.1101 (G) Reviewed by Maya Barron MD on 12/04; All test results are final unless otherwise noted. Reported Physicians [facility] Ordered by Maya Barron MD on 12/01/2020 Collected: 12/01/2020 Reported: 12/01/2020 18:19 Reported Physicians See Note None Note: Reported Physicians:Ordering: Talisha bauer TimothyAttending: Tramaine PardoothyManny To: Maya Barron Reviewed by Maya Barron MD on 12/04; All test results are final unless otherwise noted. Cepheid CT/NG RT-PCR [facility] Ordered by Maya Barron MD on 11/29/2020 Collected: 11/29/2020 Reported: 11/29/2020 07:[address]/NG RT-PCR See Note None Note: CT/NG IS A QUALITATIVE IN VITRO RE AL-TIME PCR TEST FORDETECTION OF CHLAMYDIA TRACHOMATIS (CT) AND NEISSERIAGONORRHOEAE (NG)NORMAL VALUE FOR CT/NG IS " NO ORGANISMS DETECTED "X95 False negative results may occur if the organism(s) ispresent at levels below the analytical limit of detection.X95 Because the detection of CT and NG is dependent on the DNApresent in the sample, reliable results are dependent onproper sample collection, handling and storage.X95 With endocervical specimens, assay interference may beobserved in the presence of: blood (>1% v/v) or mucin (>0.8%w/v).X95 With urine specimens, assay interference may be observedin the presence of: blood (>0.3% v/v), mucin (>0.2% w/v),bilirubin (>0.2 mg/mL), or Vagisil feminine powder (>0.2%w/v).X95 Collection and testing of urine specimens with the XpertCT/NG test is not intended to replace cervical exams andendocervical sampling for diagnosis of urogenital infection.Other genitourinary tract infections can be caused by otherinfectious agents.X95 The effects of other potential variables such as vaginaldischarge, use of tampons, douching, and specimen collectionvariables have not been determined.X95 A negative test result does not exclude the possibility ofinfection because test results may be affected by improperspecimen collection, technical error, specimen mix-up,concurrent antibiotic therapy, or the number of organisms inthe specimen which may be below the sensitivity of the test.X[address]/NG test should not be used for the evaluationof suspected sexual abuse or for other medico-legalindications. Additional testing is recommended in anycircumstance when false positive or false negative resultscould lead to adverse medical, social, or psychologicalconsequences.X[address]/NG test provides qualitative results. Nocorrelation can be drawn between the magnitude of the Ctvalue and the number of cells in an infected sample.X95 Positive results may be observed after successfulantibiotic treatment due to target nucleic acids fromresidual non-viable chlamydia.X[address]/NG performance has not been evaluated inpatients less than 14 years of age.X[address]/NG performance has not been evaluated inpatients with a history of hysterectomy.X[address]/NG test has not been evaluated with patientswho are currently being treated with antimicrobial agentsactive against CT or NG.X95 As with many diagnostic tests, results from the XpertCT/NG test should be interpreted in conjunction with otherlaboratory and clinical data available to the clinician.X95 Mutations or other changes within the regions of thebacterial genomes covered by the primers and/or probes inthe Xpert assay may result in failure to detect the targetorganisms.25298-3A trach DNA Vag Ql ТАТЬЯНА+probeLNCHLAMNC. trachomatis NOT [id number]. trachomatis NOT [id number] gonorrhoea rRNA Vag Ql ТАТЬЯНА+probeLNNEIGNN.gonorrhoeae NOT [id number].gonorrhoeae NOT DETECTED Reviewed by Maya Barron MD on 11/29; All test results are final unless otherwise noted. Reported Physicians [facility] Ordered by Maya Barron MD on 11/29/2020 Collected: 11/29/2020 Reported: 11/29/2020 07:03 Reported Physicians See Note None Note: Reported Physicians:Ordering: Estela SamuelAttending: Vianey Up To: Maya Barron Reviewed by Maya Barron MD on 11/29; All test results are final unless otherwise noted. AFFIRM [facility] Ordered by Maya Barron MD on 11/29/2020 Collected: 11/29/2020 Reported: 11/30/2020 13:21 Dionna species DNA Probe NOT DETECTED (NOT DETECTED) None Note: THIS TEST WAS PERFORMED AT:[facility] [id number] ONEILLesponsible Observer: Dionna DNA Dionna species DNA Probe [id number] 088.1256 ([facility]) Gardnerella DNA Probe DETECTED (NOT DETECTED) H (High) Note: Increased levels of G. vaginalis m ay not be significantin the absence of signs and symptoms of bacterialvaginosis.Responsible Observer: Gardnerella DNA Gardnerella DNA Probe [id number] 923.8801 ([facility]) Trichomonas DNA Probe NOT DETECTED (NOT DETECTED) None Note: Responsible Observer: Trichomonas DNA Trichomonas DNA Probe [id number] 274.2341 ([facility]) Reviewed by Maya Barron MD on 12/01; All test results are final unless otherwise noted. Reported Physicians [facility] Ordered by Maya Barron MD on 11/29/2020 Collected: 11/29/2020 Reported: 11/30/2020 13:21 Reported Physicians See Note None Note: Reported Physicians:Ordering: Estela SamuelAttending: Vianey Up To: Maya Barron Reviewed by Maya Barron MD on 12/01; All test results are final unless otherwise noted. UA W/ CULTURE IF ABNORMAL [facility] Ordered by Maya Barron MD on 11/29/2020 Collected: 11/29/2020 Reported: 11/29/2020 04:49 Urobilinogen Ur Ql See Note (0.2-1 EU/dl) None Note: 0.2 EU/dl0.2 EU/[id number] E U/dlResponsible Observer: UROBILINOGEN UROBILINOGEN 300.4500 (C) RBC # Ur Strip NEGATIVE (NEGATIVE) None Note: Responsible Observer: BLOOD BLOOD 300.4652 (C) Prot Ur Ql Strip See Note (NEGATIVE) None Note: [id number] EResponsible Observer: PROTEIN PROTEIN 300.3750 (C) Ketones Ur Ql Strip See Note (NEGATIVE) None Note: [id number] EResponsible Observer: KETONE KETONE 300.3900 (C) Bilirub Ur Ql Strip.auto See Note (NEGATIVE) None Note: [id number] EResponsible Observer: BILIRUBIN BILIRUBIN 300.4550 (C) Glucose Ur Strip.auto-mCnc NEGATIVE (NEGATIVE) None Note: Responsible Observer: GLUCOSE GLUC OSE 300.3850 (C) Appearance Ur See Note (CLEAR) None Note: CLEARCLEARLCLEARResponsible Observ er: APPEARANCE APPEARANCE 300.3400 (A) Color Ur See Note None Note: YELLOWYELLOWLYELLOWResponsible Obs erver: COLOR COLOR 300.3330 (A) Leukocyte esterase Ur Ql Strip See Note (NEGATIVE) None Note: [id number]@DO MICR O!!!!A Culture has been added to this specimen per established criteriaResponsible Observer: LEUKOCYTES LEUKOCYTES 300.3576 (C) Nitrite Ur Ql Strip See Note (NEGATIVE) None Note: [id number] EResponsible Observer: NITRITE NITRITE 300.3652 (B) pH Ur Strip 6.5 (5-8) None Note: Responsible Observer: PH PH 300.3 450 (C) Sp Gr Ur Refractometry 1.016 (1.005-1.030) None Note: Responsible Observer: SP GRAVITY U RINE SPECIFIC GRAVITY-MAN 300.3475 (C) URINE MICROSCOPIC? (CIF) Microscopic Added None Note: Responsible Observer: UA URINE SHAWN ROSCOPIC PENDING 300.4665 (D) NOTES See Note None Note: Reason for ordering culture: Abnor mal findings UA@11/29/20 0401: UA W/ MICRO added. RFLXG = UMIC CIF.Method of Collection:: Voided Reviewed by Maya Barron MD on 12/01; All test results are final unless otherwise noted. Urine culture [facility] Ordered by Maya Barron MD on 11/29/2020 Collected: 11/29/2020 Reported: 11/30/2020 07:23 Bacteria Ur Cult See Note None Note: NGNo growth.L1NG NOTES See Note None Note: @11/29/20 0450: Urine culture adde d. RFLXG = CULT.ADD. Reviewed by Maya Barron MD on 12/01; All test results are final unless otherwise noted. Reported Physicians [facility] Ordered by Maya Barron MD on 11/29/2020 Collected: 11/29/2020 Reported: 11/30/2020 07:23 Reported Physicians See Note None Note: Reported Physicians:Ordering: Estela SamuelAttending: Vianey Up To: Maya Barron Reviewed by Maya Barron MD on 12/01; All test results are final unless otherwise noted. ADD ON MICROSCOPIC [facility] Ordered by Maya Barron MD on 11/29/2020 Collected: 11/29/2020 Reported: 11/29/2020 04:49 ADD ON MICROSCOPIC See Note (0-5) None Note: NOTES OTHER/NOT INTERPRETED Cells UrnS Micro OCCASIONAL Cells UrnS Micro OCCASIONAL Cells UrnS Micro OCCASIONAL Cells UrnS Micro L Cells UrnS Micro Cells UrnS Micro Cells UrnS Micro Cells UrnS Micro Cells UrnS Micro WBC # Ur Manual OCCASIONAL Reason for ordering culture: Abnormal findings UA@11/29/20 0401: UA W/ MICRO added. RFLXG = UMIC CIF.Method of Collection:: VoidedResponsible Observer: WBC WBC 300.5005 (A) Reviewed by Maya Barron MD on 11/29; All test results are final unless otherwise noted. Reported Physicians [facility] Ordered by Maya Barron MD on 11/29/2020 Collected: 11/29/2020 Reported: 11/29/2020 04:51 Reported Physicians See Note None Note: Reported Physicians:Ordering: Estela SamuelAttending: Vianey Up To: Maya Barron Reviewed by Maya Barron MD on 11/29; All test results are final unless otherwise noted. TROPONIN [facility] Ordered by Maya Barron MD on 11/20/2020 Collected: 11/20/2020 Reported: 11/20/2020 20:04 Troponin I SerPl-mCnc Less Than 0.015 (0.00-0.09) N (Normal) Note: Less than 0.09 NG/ML Negative 0.10 - 0.77 NG/ML High Risk0.78 NG/ML or Greater PositiveThe WHO defined the cutoff (definition for diagnosis of CO)for this method as 0.78 ng/ml.Responsible Observer: Troponin I Troponin I 600.1101 (G) Reviewed by Maya Barron MD on 11/22; All test results are final unless otherwise noted. Reported Physicians [facility] Ordered by Maya Barron MD on 11/20/2020 Collected: 11/20/2020 Reported: 11/20/2020 20:05 Reported Physicians See Note None Note: Reported Physicians:Ordering: Les Vanegastending: Fady Raza To: Maya Barron Reviewed by Maya Barron MD on 11/22; All test results are final unless otherwise noted. Cepheid SARS/FLU/RSV RT-PCR [facility] Ordered by Maya Barron MD on 11/18/2020 Collected: 11/18/2020 Reported: 11/18/2020 23:58 SARS-CoV+SARS-CoV-2 Ag Resp Ql IA.rapid See Note None Note: NORMAL RESULT IS "Not Detected"Cep heid SARS-CoV-2,FLU/RSV is Multiplex real time RT-PCRNegative results do not preclude SARS-COV-2, influenza orRSV infection and should not be used as the sole basis fortreatment or other patient management decisions.False negative results may occur if virus is present atlevels below the analytical limit of detection.This test has been authorized by FDA under an EUA for use bymimbres memorial hospitalhoriMachinima toeftaciltoh98939-0CKCL-xyn CoV RNA Resp Ql ТАТЬЯНА+ipywoIGSHMYAFNMO-SYX-5 NOT [id number]-GNV-2 NOT YMMJTPWF78971-2PCOCK RNA Resp Ql ТАТЬЯНА+probeLNNFLUAInfluenza A Not Det [id number] A Not Bcdwzptr26277-5JXTAM RNA Resp Ql ТАТЬЯНА+probeLNNINBInfluenza B Not [id number] B Not Ooosvyqu49905- 2RSV RNA Resp Ql ТАТЬЯНА+probeLNNRSVRSV Not [id number] Not Detected Reviewed by Maya Barron MD on 11/20; All test results are final unless otherwise noted. Reported Physicians [facility] Ordered by Maya Barron MD on 11/18/2020 Collected: 11/18/2020 Reported: 11/18/2020 23:58 Reported Physicians See Note None Note: Reported Physicians:Ordering: Aj nSowending: Jos Castellanos To: Maya Barron Reviewed by Maya Barron MD on 11/20; All test results are final unless otherwise noted. URINE DRUG SCREEN -([facility]) [facility] Ordered by Maya Barron MD on 11/17/2020 Collected: 11/17/2020 Reported: 11/17/2020 14:19 PCP Ur Ql Scn>25 ng/mL See Note (Cutoff 25) None Note: [id number] E@Reenter manual test result: NEGATIVE@by Claudia Tello at 11/17/20 1414.Responsible Observer: PCP Urine Phencyclidine (PCP) Scrn 400.5120 (A) THC Ur Ql Scn>50 ng/mL See Note (Cutoff 50) None Note: [id number] EResponsible Observer: Marijuana (THC) Ur Marijuana (THC) Screen 400.5110 (A) Benzodiaz Ur Ql Scn See Note (Cutoff 150) None Note: [id number] E@Reenter manual test result: NEGATIVE@by Claudia Tello at 11/17/20 1418.Responsible Observer: Benzodiazepines Urine Benzodiazepines Screen 400.5170 (A) Opiates Ur Ql Scn See Note (Cutoff 100) None Note: [id number] E@Reenter manual test result: NEGATIVE@by Claudia Tello at 11/17/20 1418.Responsible Observer: Opiates Urine Opiates Screen 400.5150 (A) Tricyclics Ur Ql Scn See Note (Cutoff 300) None Note: [id number] E@Reenter manual test result: NEGATIVE@by Claudia Tello at 11/17/20 1418.Responsible Observer: TCA Ur Tricyclic Antidepressants 400.5180 (A) Cocaine Ur Ql Scn See Note (Cutoff 150) None Note: [id number] E@Reenter manual test result: NEGATIVE@by Claudia Tello at 11/17/20 1417.Responsible Observer: Cocaine Urine Cocaine Screen 400.5130 (A) Propoxyph+Nor Ur Ql Scn See Note (Cutoff 300) None Note: [id number] E@Reenter manual test result: NEGATIVE@by Claudia Tello at 11/17/20 1418.Responsible Observer: Propoxyphene Urine Propoxyphene Screen 400.5220 (A) Methadone Ur Ql Scn See Note (Cutoff 200) None Note: [id number] E@Reenter manual test result: NEGATIVE@by Claudia Tello at 11/17/20 1418.Responsible Observer: Methadone Urine Methadone Screen 400.5190 (A) Methamphet Ur Ql Scn See Note (Cutoff 500) None Note: [id number] E@Reenter manual test result: NEGATIVE@by Claudia Tello at 11/17/20 1417.Responsible Observer: Methamphetamine Urine Methamphetamines Screen 400.5140 (A) oxyCODONE Ur Ql Scn See Note (Cutoff 100) None Note: [id number] E@Reenter manual test result: NEGATIVE@by Claudia Tello at 11/17/20 1418.Responsible Observer: Oxycodone Urine Oxycodone Screen 400.5210 (A) Buprenorphine Ur Ql See Note (Cutoff 10) None Note: [id number] E@Reenter manual test result: NEGATIVE@by Claudia Tello at 11/17/20 1419.Responsible Observer: Buprenorphine Urine Buprenorphine Screen 400.5230 (A) Amphetamines Ur Ql Scn>500 ng/mL See Note (Cutoff 500) None Note: [id number] E@Reenter manual test result: NEGATIVE@by Claudia Tello at 11/17/20 1418.Responsible Observer: Amphetamines Urine Amphetamines Screen 400.5160 (A) Barbiturates Ur Ql Scn>200 ng/mL See Note (Cutoff 200) None Note: [id number] E@Reenter manual test result: NEGATIVE@by Claudia Tello at 11/17/20 1418.Responsible Observer: Barbiturates Urine Barbiturates 400.5200 (A) Reviewed by Maya Barron MD on 11/20; All test results are final unless otherwise noted. [facility] Ordered by Maya Barron MD on 11/17/2020 Collected: 11/17/2020 Reported: 11/17/2020 14:34 Iron SerPl-mCnc 39 (50-170) L (Low) Note: Iron values may be falsely elevate d in serum samples frompatients treated with anticoagulants (e.g., hemodialysispatients)Responsible Observer: Iron Level Iron Level 400.9002 (A) Reviewed by Maya Barron MD on 11/20; All test results are final unless otherwise noted. Reported Physicians [facility] Ordered by Maya Barron MD on 11/17/2020 Collected: 11/17/2020 Reported: 11/17/2020 14:34 Reported Physicians See Note None Note: Reported Physicians:Ordering: Cara Alvarengaending: Maya Barron Reviewed by Maya Barron MD on 11/20; All test results are final unless otherwise noted. CBC W AUTO DIFF [facility] Ordered by Maya Barron MD on 11/17/2020 Collected: 11/17/2020 Reported: 11/17/2020 13:35 MCV BldCo Auto 92 FemtoLiter_[SI_Volume_Units] (80-96) N (Normal) Note: Responsible Observer: MCV MCV 100 .0600 (B) RDW RBC Auto 13 percent (11-15) N (Normal) Note: Responsible Observer: RDW RDW 100 .0900 (B) Manual diff Bld NO None Note: Responsible Observer: CBC Manual D ifferential Added 100.1990 (B) PMV Bld 9.5 FemtoLiter_[SI_Volume_Units] (9.1-13.1) N (Normal) Note: Responsible Observer: MPV MPV 100 .1100 (B) Imm Granulocytes Bld Ql Auto See Note (0-2) N (Normal) Note: [id number] Ob server support technician: IG% IG% 100.1375 (B) Hct VFr Bld Auto 35.1 percent (37-47) L (Low) Note: Responsible Observer: HEMATOCRIT H EMATOCRIT 100.0500 (B) MCHC BldCo-mCnc 34 GramsPerDeciLiter_[Mass_Concentration_Units] (33-37) N (Normal) Note: Responsible Observer: MCHC MCHC 1 00.0800 (B) Imm Granulocytes # Bld Auto 0.1 Unit (0-0.1) None Note: Responsible Observer: IG# IG# 100 .1400 (B) Monocytes/leuk NFr Bld Auto 6.3 percent (4-12) N (Normal) Note: Responsible Observer: MONO % MONO % 100.1225 (B) Hgb Bld-sCnc 12.0 GramsPerDeciLiter_[Mass_Concentration_Units] (10.7-15.4) N (Normal) Note: Responsible Observer: HGB HEMOGLOB IN 100.0400 (B) WBC # Bld Auto 8.7 ThousandsPerMicroLiter_[Number_Concentration_Units] (4.45-10 .71) N (Normal) Note: Responsible Observer: WBC WHITE BL OOD COUNT 100.0100 (E) Basophils # Bld Auto 0.0 Unit (0.0-0.2) N (Normal) Note: Responsible Observer: BASO # BASO# 100.1350 (B) Basophils/leuk NFr Bld Auto 0.3 percent (0.4-1.3) L (Low) Note: Responsible Observer: BASO % BASO % 100.1325 (B) Eosinophil # Bld Auto 0.1 Unit (0.0-0.5) N (Normal) Note: Responsible Observer: EOS # EOS# 100.1300 (D) Eosinophil/leuk NFr Bld Auto 0.7 percent (0-7) N (Normal) Note: Responsible Observer: EOS % EOS % 100.1275 (B) Lymphocytes # Bld Auto 1.8 Unit (0.6-4.6) N (Normal) Note: Responsible Observer: LYMPH # LYMP H# 100.1200 (B) Lymphocytes/leuk NFr Bld Auto 20.5 percent (14-46) N (Normal) Note: Responsible Observer: LYMPH % LYMP H % 100.1175 (B) Monocytes # Bld Auto 0.6 Unit (0.2-1.2) N (Normal) Note: Responsible Observer: MONO # MONO# 100.1250 (C) Neutrophils # Bld Auto 6.2 Unit (1.7-7.6) N (Normal) Note: Responsible Observer: NEUT# NEUT# 100.1150 (B) Neutrophils/leuk NFr Bld Auto 71.6 percent (41-77) N (Normal) Note: Responsible Observer: NEUT% NEUT% 100.1125 (B) Platelet # Bld Auto 272 ThousandsPerMicroLiter_[Number_Concentration_Units] (130-472 ) N (Normal) Note: Responsible Observer: PLATELET COU NT PLATELET COUNT 100.1000 (D) MCH RBC Qn Auto 32 PicoGram_[SI_Mass_Units] (27-31) H (High) Note: Responsible Observer: MCH MCH 100 .0700 (B) RBC # Bld Auto 3.81 MillionsPerMicroLiter_[Number_Concentration_Units] (4.20-5.4 0) L (Low) Note: Responsible Observer: RBC Red Bloo d Count 100.0300 (B) NUCLEATED RED BLOOD CELL# 0 Unit None Note: Responsible Observer: NRBC# NUCLEA VICTOR M RBC 100.1362 (A) NUCLEATED RED BLOOD CELL 0 percent None Note: Responsible Observer: NRBC% NRBC% 100.1360 (B) Reviewed by Maya Barron MD on 11/20; All test results are final unless otherwise noted. HA1C [facility] Ordered by Maya Barron MD on 11/17/2020 Collected: 11/17/2020 Reported: 11/17/2020 14:30 Hgb A1c Bld-mCnc 4.6 percent (3.8-5.6) N (Normal) Note: The following ranges ma y be used for interpretation of results: HGBA1C degree of glucose control: Greater than 8%: Action Suggested * Less than 7%: Goal of Diabetic Therapy Less than 5.6%: NormalFactors such as duration of diabetes, adherence to therapyand the age of the patient should also be considered inassessing the degree of blood glucose control.* High risk of developing mcc complications such asretinopathy, nephropathy, neuropathy, cardiopathy, etc. Some danger of hypoglycemic reaction in Type I di abetics.Some glucose intolerant individuals and "Sub Clinical"diabetics may demonstrate HGBA1C levels in this area.Responsible Observer: HGBA1C % Hemoglobin A1c % 2000.0004 (D) Est. average glucose Bld gHb Est-sCnc 85 MilliGramsPerDeciLiter_[Mass_Concentration_Units] None Note: An A1C of 7% - the goal of diabeti c therapy - is equivalentto an EAG of 154 mg/dl.Responsible Observer: eAG Estimated Average Glucose -eAG 2000.0020 (A) Reviewed by Maya Barron MD on 11/20; All test results are final unless otherwise noted. [facility] Ordered by Maya Barron MD on 11/17/2020 Collected: 11/17/2020 Reported: 11/17/2020 14:34 ALT SerPl w P-5'-P-cCnc 12 enzyme_unit_per_liter (10-49) N (Normal) Note: Responsible Observer: SGPT/ALT SGP T/ALT 400.1750 (G) Calcium SerPl-mCnc 8.2 MilliGramsPerDeciLiter_[Mass_Concentration_Units] (8.5-10.1) L (Low) Note: Responsible Observer: Calcium Calc ium 400.2500 (G) Bilirub SerPl-mCnc 0.2 MilliGramsPerDeciLiter_[Mass_Concentration_Units] (0.3-1.2) L (Low) Note: Responsible Observer: T KELLIE Total Bilirubin 400.2600 (G) CO2 SerPl-sCnc 25 MilliMolesPerLiter_[Substance_Concentration_Units] (20-31) N (Normal) Note: Responsible Observer: CO2 Carbon D ioxide 400.1400 (G) Chloride SerPl-sCnc 107 MilliMolesPerLiter_[Substance_Concentration_Units] (99-109) N (Normal) Note: Responsible Observer: Chloride Chl oride 400.1250 (G) Glucose SerPl-mCnc 84 MilliGramsPerDeciLiter_[Mass_Concentration_Units] (74-106) N (Normal) Note: Responsible Observer: Glucose Gluc ose 400.1500 (G) Potassium SerPl-sCnc 3.7 MilliMolesPerLiter_[Substance_Concentration_Units] (3.5-5.5) N (Normal) Note: Responsible Observer: K Potassium 400.1210 (G) Prot SerPl-mCnc 6.4 GramsPerDeciLiter_[Mass_Concentration_Units] (5.7-8.2) N (Normal) Note: Responsible Observer: TP Total Pro tein 400.2800 (G) Sodium SerPl-sCnc 139 MilliMolesPerLiter_[Substance_Concentration_Units] (132-146) N (Normal) Note: Responsible Observer: Sodium Sodiu m 400.1100 (G) AST SerPl w P-5'-P-cCnc 8 enzyme_unit_per_liter (0-33) N (Normal) Note: Responsible Observer: SGOT / AST S GOT / AST 400.1900 (G) BUN SerPl-mCnc 7 MilliGramsPerDeciLiter_[Mass_Concentration_Units] (9-23) L (Low) Note: Responsible Observer: BUN Blood Ur ea Nitrogen 400.1000 (G) Anion Gap SerPl-sCnc 11 MilliMolesPerLiter_[Substance_Concentration_Units] (8-16) N (Normal) Note: Responsible Observer: ANION GAP AN ION GAP 400.1402 (E) Albumin SerPl BCP-mCnc 2.9 GramsPerDeciLiter_[Mass_Concentration_Units] (3.2-4.8) L (Low) Note: Responsible Observer: Albumin [place] min 400.2700 (G) ALP SerPl-cCnc 92 enzyme_unit_per_liter (45-129) N (Normal) Note: Responsible Observer: ALP Alkaline Phosphatase 400.2000 (G) GFR/BSA.pred SerPlBld-ArVRat Greater Than 60 (ABOVE 60) None Note: Responsible Observer: GFR Glomerul ar Filt Rate Calc 400.1605 (D) Creatinine 0.5 MilliGramsPerDeciLiter_[Mass_Concentration_Units] (0.5-1.1) N (Normal) Note: Responsible Observer: Creatinine C reatinine 400.1600 (G) Reviewed by Maya Barron MD on 11/20; All test results are final unless otherwise noted. Vitamin D 25-OH [facility] Ordered by Maya Barron MD on 11/17/2020 Collected: 11/17/2020 Reported: 11/18/2020 08:16 25(OH)D3+25(OH)D2 SerPl-mCnc 9 NanoGramsPerMilliLiter_[Mass_Concentration_Units] (30-100) None Note: Vitamin D Status 25-OH Vit vazquez D:Deficiency: <20 ng/mLInsufficiency: 20 - 29 ng/mLOptimal: > or = 30 ng/mLFor 25-OH Vitamin D testing on patients onD2-supplementation and patients for whom quantitationof D2 and D3 fractions is required, the QuestAssureD(TM)25-OH VIT D, (D2,D3), LC/MS/MS is recommended: ordercode 29911 (patients >2yrs).See Note 1Note 1For additional information, please refer tohttp://[email or web address]/faq/NMR726(This link is being provided for informational/educational purposes only.)THIS TEST WAS PERFORMED AT:[facility] [address]CLAUDY ONEILLesponsible Observer: Vitamin D 25-OH Vitamin D 25-Hydroxy 20209200 919.2833 ([facility]) Reviewed by Maya Barron MD on 11/20; All test results are final unless otherwise noted. Reported Physicians [facility] Ordered by Maya Barron MD on 11/17/2020 Collected: 11/17/2020 Reported: 11/18/2020 08:17 Reported Physicians See Note None Note: Reported Physicians:Ordering: Cara Alvarengaending: Maya Barron Reviewed by Maya Barron MD on 11/20; All test results are final unless otherwise noted. TSH [facility] Ordered by Maya Barron MD on 11/17/2020 Collected: 11/17/2020 Reported: 11/17/2020 14:34 TSH SerPl DL<=0.005 mIU/L-aCnc 1.38 MicroInternationalUnitsPerMilliLiter_[Arbitrary_Con (0.35-5. 50) N (Normal) Note: Responsible Observer: TSH TSH 600 .7055 (D) Reviewed by Maya Barron MD on 11/20; All test results are final unless otherwise noted. Reported Physicians [facility] Ordered by Maya Barron MD on 11/17/2020 Collected: 11/17/2020 Reported: 11/17/2020 14:34 Reported Physicians See Note None Note: Reported Physicians:Ordering: Maya AlvarengaAttending: Maya Barron Reviewed by Maya Barron MD on 11/20; All test results are final unless otherwise noted. FREE T4 (LAB) [facility] Ordered by Maya Barron MD on 11/17/2020 Collected: 11/17/2020 Reported: 11/17/2020 14:34 T4 Free SerPl-mCnc 0.78 NanoGramsPerDeciLiter_[Mass_Concentration_Units] (0.89-1.76) L (Low) Note: Responsible Observer: FREE T4 Free Thyroxine 600.7005 (D) Reviewed by Maya Barron MD on 11/20; All test results are final unless otherwise noted. Reported Physicians [facility] Ordered by Maya Barron MD on 11/17/2020 Collected: 11/17/2020 Reported: 11/17/2020 14:34 Reported Physicians See Note None Note: Reported Physicians:Ordering: Maya AlvarengaAttending: Maya Barron Reviewed by Maya Barron MD on 11/20; All test results are final unless otherwise noted. BHCG Quantitative [facility] Ordered by Maya Barron MD on 10/23/2020 Collected: 10/23/2020 Reported: 10/23/2020 01:21 B-HCG SerPl-aCnc 22222 MilliInternationalUnitsPerMilliLiter_[Arbitrary_Con (0-10) H (High) Note: @Instrument will autodiluteAPPROXI MATE GESTATION AGE APRROXIMATE HCG RANGE 0-1 WEEK 0 - 50 1-2 WEEKS 40 - 300 2-3 WEEKS 100 - 1,000 3-4 WEEKS 500 - 6,000 1-2 MONTHS 5,000 - 200,000 2-3 MONTHS 10,000 - 100,000 2ND TRIMESTER 3,000 - 50,000 3RD TRIMESTER 1,000 - 50,000Responsible Observer: BHCG Quant BHCG Quantitative 600.5006 (G) Reviewed by Maya Barron MD on 10/23; All test results are final unless otherwise noted. Reported Physicians [facility] Ordered by Maya Barron MD on 10/23/2020 Collected: 10/23/2020 Reported: 10/23/2020 01:21 Reported Physicians See Note None Note: Reported Physicians:Ordering: Yoli NapolesAttending: Charles Silva To: Maya Barron Reviewed by Maya Barron MD on 10/23; All test results are final unless otherwise noted. CBC W AUTO DIFF [facility] Ordered by Maya Barron MD on 10/23/2020 Collected: 10/23/2020 Reported: 10/23/2020 00:36 MCV BldCo Auto 90 FemtoLiter_[SI_Volume_Units] (80-96) N (Normal) Note: Responsible Observer: MCV MCV 100 .0600 (B) RDW RBC Auto 13 percent (11-15) N (Normal) Note: Responsible Observer: RDW RDW 100 .0900 (B) Manual diff Bld NO None Note: Responsible Observer: CBC Manual D ifferential Added 100.1990 (B) PMV Bld 9.7 FemtoLiter_[SI_Volume_Units] (9.1-13.1) N (Normal) Note: Responsible Observer: MPV MPV 100 .1100 (B) Imm Granulocytes Bld Ql Auto See Note (0-2) N (Normal) Note: [id number] Ob server support technician: IG% IG% 100.1375 (B) Hct VFr Bld Auto 38.2 percent (37-47) N (Normal) Note: Responsible Observer: HEMATOCRIT H EMATOCRIT 100.0500 (B) MCHC BldCo-mCnc 34 GramsPerDeciLiter_[Mass_Concentration_Units] (33-37) N (Normal) Note: Responsible Observer: MCHC MCHC 1 00.0800 (B) Imm Granulocytes # Bld Auto 0.0 Unit (0-0.1) None Note: Responsible Observer: IG# IG# 100 .1400 (B) Monocytes/leuk NFr Bld Auto 7.6 percent (4-12) N (Normal) Note: Responsible Observer: MONO % MONO % 100.1225 (B) Hgb Bld-sCnc 13.1 GramsPerDeciLiter_[Mass_Concentration_Units] (10.7-15.4) N (Normal) Note: Responsible Observer: HGB HEMOGLOB IN 100.0400 (B) WBC # Bld Auto 7.4 ThousandsPerMicroLiter_[Number_Concentration_Units] (4.45-10 .71) N (Normal) Note: Responsible Observer: WBC WHITE BL OOD COUNT 100.0100 (E) Basophils # Bld Auto 0.0 Unit (0.0-0.2) N (Normal) Note: Responsible Observer: BASO # BASO# 100.1350 (B) Basophils/leuk NFr Bld Auto 0.3 percent (0.4-1.3) L (Low) Note: Responsible Observer: BASO % BASO % 100.1325 (B) Eosinophil # Bld Auto 0.1 Unit (0.0-0.5) N (Normal) Note: Responsible Observer: EOS # EOS# 100.1300 (D) Eosinophil/leuk NFr Bld Auto 0.7 percent (0-7) N (Normal) Note: Responsible Observer: EOS % EOS % 100.1275 (B) Lymphocytes # Bld Auto 2.1 Unit (0.6-4.6) N (Normal) Note: Responsible Observer: LYMPH # LYMP H# 100.1200 (B) Lymphocytes/leuk NFr Bld Auto 29.1 percent (14-46) N (Normal) Note: Responsible Observer: LYMPH % LYMP H % 100.1175 (B) Monocytes # Bld Auto 0.6 Unit (0.2-1.2) N (Normal) Note: Responsible Observer: MONO # MONO# 100.1250 (C) Neutrophils # Bld Auto 4.6 Unit (1.7-7.6) N (Normal) Note: Responsible Observer: NEUT# NEUT# 100.1150 (B) Neutrophils/leuk NFr Bld Auto 62.0 percent (41-77) N (Normal) Note: Responsible Observer: NEUT% NEUT% 100.1125 (B) Platelet # Bld Auto 264 ThousandsPerMicroLiter_[Number_Concentration_Units] (130-472 ) N (Normal) Note: Responsible Observer: PLATELET COU NT PLATELET COUNT 100.1000 (D) MCH RBC Qn Auto 31 PicoGram_[SI_Mass_Units] (27-31) N (Normal) Note: Responsible Observer: MCH MCH 100 .0700 (B) RBC # Bld Auto 4.23 MillionsPerMicroLiter_[Number_Concentration_Units] (4.20-5.4 0) N (Normal) Note: Responsible Observer: RBC Red Bloo d Count 100.0300 (B) NUCLEATED RED BLOOD CELL# 0 Unit None Note: Responsible Observer: NRBC# NUCLEA VICTOR M RBC 100.1362 (A) NUCLEATED RED BLOOD CELL 0 percent None Note: Responsible Observer: NRBC% NRBC% 100.1360 (B) Reviewed by Maya Barron MD on 10/23; All test results are final unless otherwise noted. [facility] Ordered by Maya Barron MD on 10/23/2020 Collected: 10/23/2020 Reported: 10/23/2020 01:03 ALT SerPl w P-5'-P-cCnc 12 enzyme_unit_per_liter (10-49) N (Normal) Note: Responsible Observer: SGPT/ALT SGP T/ALT 400.1750 (G) Calcium SerPl-mCnc 8.8 MilliGramsPerDeciLiter_[Mass_Concentration_Units] (8.5-10.1) N (Normal) Note: Responsible Observer: Calcium Calc ium 400.2500 (G) Bilirub SerPl-mCnc 0.4 MilliGramsPerDeciLiter_[Mass_Concentration_Units] (0.3-1.2) N (Normal) Note: Responsible Observer: T KELLIE Total Bilirubin 400.2600 (G) CO2 SerPl-sCnc 23 MilliMolesPerLiter_[Substance_Concentration_Units] (20-31) N (Normal) Note: Responsible Observer: CO2 Carbon D ioxide 400.1400 (G) Chloride SerPl-sCnc 108 MilliMolesPerLiter_[Substance_Concentration_Units] (99-109) N (Normal) Note: Responsible Observer: Chloride Chl oride 400.1250 (G) Glucose SerPl-mCnc 82 MilliGramsPerDeciLiter_[Mass_Concentration_Units] (74-106) N (Normal) Note: Responsible Observer: Glucose Gluc ose 400.1500 (G) Potassium SerPl-sCnc 3.7 MilliMolesPerLiter_[Substance_Concentration_Units] (3.5-5.5) N (Normal) Note: Responsible Observer: K Potassium 400.1210 (G) Prot SerPl-mCnc 7.6 GramsPerDeciLiter_[Mass_Concentration_Units] (5.7-8.2) N (Normal) Note: Responsible Observer: TP Total Pro tein 400.2800 (G) Sodium SerPl-sCnc 138 MilliMolesPerLiter_[Substance_Concentration_Units] (132-146) N (Normal) Note: Responsible Observer: Sodium Sodiu m 400.1100 (G) AST SerPl w P-5'-P-cCnc 9 enzyme_unit_per_liter (0-33) N (Normal) Note: Responsible Observer: SGOT / AST S GOT / AST 400.1900 (G) BUN SerPl-mCnc 8 MilliGramsPerDeciLiter_[Mass_Concentration_Units] (9-23) L (Low) Note: Responsible Observer: BUN Blood Ur ea Nitrogen 400.1000 (G) Anion Gap SerPl-sCnc 11 MilliMolesPerLiter_[Substance_Concentration_Units] (8-16) N (Normal) Note: Responsible Observer: ANION GAP AN ION GAP 400.1402 (E) Albumin SerPl BCP-mCnc 3.4 GramsPerDeciLiter_[Mass_Concentration_Units] (3.2-4.8) N (Normal) Note: Responsible Observer: Albumin [place]bu min 400.2700 (G) ALP SerPl-cCnc 90 enzyme_unit_per_liter (45-129) N (Normal) Note: Responsible Observer: ALP Alkaline Phosphatase 400.2000 (G) GFR/BSA.pred SerPlBld-ArVRat Greater Than 60 (ABOVE 60) None Note: Responsible Observer: GFR Glomerul ar Filt Rate Calc 400.1605 (D) Creatinine 0.5 MilliGramsPerDeciLiter_[Mass_Concentration_Units] (0.5-1.1) N (Normal) Note: Responsible Observer: Creatinine C reatinine 400.1600 (G) Reviewed by Maya Barron MD on 10/23; All test results are final unless otherwise noted. D-DIMER [facility] Ordered by Maya Barron MD on 10/23/2020 Collected: 10/23/2020 Reported: 10/23/2020 01:22 D Dimer PPP-aCnc 0.36 MilliGramsPerLiter_[Mass_Concentration_Units] (0.0-0.50) N (Normal) Note: @ Has QC been run for this test to day?YESPLEASE NOTE: THIS TEST WAS PERFORMED USING A PARTICLE-ENHANCED, IMMUNOTURBIDIMETRIC ASSAY AND HAS A SINGLE,CLINICALLY DERIVED CUTOFF OF 0.50 MG/L.Responsible Observer: D-DIMER D- DIMER 200.0901 (A) NOTES See Note None Note: Is test to R/O PE, DVT or VTE? Y Reviewed by Maya Barron MD on 10/23; All test results are final unless otherwise noted. Reported Physicians [facility] Ordered by Maya Barron MD on 10/23/2020 Collected: 10/23/2020 Reported: 10/23/2020 01:22 Reported Physicians See Note None Note: Reported Physicians:Ordering: Yoli NapolesAttending: Charles Silva To: Maya Barron Reviewed by Maya Barron MD on 10/23; All test results are final unless otherwise noted. TROPONIN [facility] Ordered by Maya Barron MD on 10/23/2020 Collected: 10/23/2020 Reported: 10/23/2020 01:03 Troponin I SerPl-mCnc Less Than 0.015 (0.00-0.09) N (Normal) Note: Less than 0.09 NG/ML Negative 0.10 - 0.77 NG/ML High Risk0.78 NG/ML or Greater PositiveThe WHO defined the cutoff (definition for diagnosis of CO)for this method as 0.78 ng/ml.Responsible Observer: Troponin I Troponin I 600.1101 (G) Reviewed by Maya Barron MD on 10/23; All test results are final unless otherwise noted. Reported Physicians [facility] Ordered by Maya Barron MD on 10/23/2020 Collected: 10/23/2020 Reported: 10/23/2020 01:03 Reported Physicians See Note None Note: Reported Physicians:Ordering: Yoli NapolesAttending: Charles Silva To: Maya Barron Reviewed by Maya Barron MD on 10/23; All test results are final unless otherwise noted. TSH [facility] Ordered by Maya Barron MD on 10/21/2020 Collected: 10/21/2020 Reported: 10/21/2020 15:17 TSH SerPl DL<=0.005 mIU/L-aCnc 1.40 MicroInternationalUnitsPerMilliLiter_[Arbitrary_Con (0.35-5. 50) N (Normal) Note: Responsible Observer: TSH TSH 600 .7055 (D) Reviewed by Maya Barron MD on 10/23; All test results are final unless otherwise noted. Reported Physicians [facility] Ordered by Maya Barron MD on 10/21/2020 Collected: 10/21/2020 Reported: 10/21/2020 15:17 Reported Physicians See Note None Note: Reported Physicians:Ordering: Math is, TimothyAttending: Pardo, TimothyCopy To: Maya Barron Reviewed by Maya Barron MD on 10/23; All test results are final unless otherwise noted. FREE T4 (LAB) [facility] Ordered by Maya Barron MD on 10/21/2020 Collected: 10/21/2020 Reported: 10/21/2020 15:17 T4 Free SerPl-mCnc 0.97 NanoGramsPerDeciLiter_[Mass_Concentration_Units] (0.89-1.76) N (Normal) Note: Responsible Observer: FREE T4 Free Thyroxine 600.7005 (D) Reviewed by Maya Barron MD on 10/23; All test results are final unless otherwise noted. Reported Physicians [facility] Ordered by Maya Barron MD on 10/21/2020 Collected: 10/21/2020 Reported: 10/21/2020 15:17 Reported Physicians See Note None Note: Reported Physicians:Ordering: Math is, TimothyAttending: Pardo, TimothyCopy To: Maya Barron Reviewed by Maya Barron MD on 10/23; All test results are final unless otherwise noted. UA W/ CULTURE IF ABNORMAL [facility] Ordered by Maya Barron MD on 10/19/2020 Collected: 10/19/2020 Reported: 10/19/2020 16:31 Urobilinogen Ur Ql See Note (0.2-1 EU/dl) None Note: 0.2 EU/dl0.2 [id number] E U/dlResponsible Observer: UROBILINOGEN UROBILINOGEN 300.4500 (C) RBC # Ur Strip NEGATIVE (NEGATIVE) None Note: Responsible Observer: BLOOD BLOOD 300.4652 (C) Prot Ur Ql Strip See Note (NEGATIVE) None Note: [id number] EResponsible Observer: PROTEIN PROTEIN 300.3750 (C) Ketones Ur Ql Strip See Note (NEGATIVE) None Note: [id number] EResponsible Observer: KETONE KETONE 300.3900 (C) Bilirub Ur Ql Strip.auto See Note (NEGATIVE) None Note: [id number] EResponsible Observer: BILIRUBIN BILIRUBIN 300.4550 (C) Glucose Ur Strip.auto-mCnc 100 mg/dl (NEGATIVE) None Note: Responsible Observer: GLUCOSE GLUC OSE 300.3850 (C) Appearance Ur See Note (CLEAR) None Note: CLEARCLEARLCLEARResponsible Observ er: APPEARANCE APPEARANCE 300.3400 (A) Color Ur See Note None Note: YELLOWYELLOWLYELLOWResponsible Obs erver: COLOR COLOR 300.3330 (A) Leukocyte esterase Ur Ql Strip See Note (NEGATIVE) None Note: [id number] EResponsible Observer: LEUKOCYTES LEUKOCYTES 300.3576 (C) Nitrite Ur Ql Strip See Note (NEGATIVE) None Note: [id number] EResponsible Observer: NITRITE NITRITE 300.3652 (B) pH Ur Strip 7.0 (5-8) None Note: Responsible Observer: PH PH 300.3 450 (C) Sp Gr Ur Refractometry 1.005 (1.005-1.030) None Note: Responsible Observer: SP GRAVITY U RINE SPECIFIC GRAVITY-MAN 300.3475 (C) URINE MICROSCOPIC? (CIF) NO None Note: Responsible Observer: UA URINE SHAWN ROSCOPIC PENDING 300.4665 (D) NOTES See Note None Note: Reason for ordering culture: Abnor mal findings UAMethod of Collection:: Voided Reviewed by Maya Barron MD on 10/20; All test results are final unless otherwise noted. Reported Physicians [facility] Ordered by Maya Barron MD on 10/19/2020 Collected: 10/19/2020 Reported: 10/19/2020 16:31 Reported Physicians See Note None Note: Reported Physicians:Ordering: Les Vanegas AAttending: Fady Raza To: Maya Barron Reviewed by Maya Barron MD on 10/20; All test results are final unless otherwise noted. URINE DRUG SCREEN -([facility]) [facility] Ordered by Maya Barron MD on 10/19/2020 Collected: 10/19/2020 Reported: 10/19/2020 16:40 PCP Ur Ql Scn>25 ng/mL See Note (Cutoff 25) None Note: [id number] E@Reenter manual test result: NEGATIVE@by Jia Lentz at 10/19/20 1639.Responsible Observer: PCP Urine Phencyclidine (PCP) Scrn 400.5120 (A) THC Ur Ql Scn>50 ng/mL See Note (Cutoff 50) None Note: [id number] EResponsible Observer: Marijuana (THC) Ur Marijuana (THC) Screen 400.5110 (A) Benzodiaz Ur Ql Scn See Note (Cutoff 150) None Note: [id number] E@Reenter manual test result: NEGATIVE@by Jia Lentz at 10/19/20 1640.Responsible Observer: Benzodiazepines Urine Benzodiazepines Screen 400.5170 (A) Opiates Ur Ql Scn See Note (Cutoff 100) None Note: [id number] E@Reenter manual test result: NEGATIVE@by Jia Lentz at 10/19/20 1640.Responsible Observer: Opiates Urine Opiates Screen 400.5150 (A) Tricyclics Ur Ql Scn See Note (Cutoff 300) None Note: [id number] E@Reenter manual test result: NEGATIVE@by Jia Lentz at 10/19/20 1640.Responsible Observer: TCA Ur Tricyclic Antidepressants 400.5180 (A) Cocaine Ur Ql Scn See Note (Cutoff 150) None Note: [id number] E@Reenter manual test result: NEGATIVE@by Jia Lentz at 10/19/20 1640.Responsible Observer: Cocaine Urine Cocaine Screen 400.5130 (A) Propoxyph+Nor Ur Ql Scn See Note (Cutoff 300) None Note: [id number] E@Reenter manual test result: NEGATIVE@by Jia Lentz at 10/19/20 1640.Responsible Observer: Propoxyphene Urine Propoxyphene Screen 400.5220 (A) Methadone Ur Ql Scn See Note (Cutoff 200) None Note: [id number] E@Reenter manual test result: NEGATIVE@by Jia Lentz at 10/19/20 1640.Responsible Observer: Methadone Urine Methadone Screen 400.5190 (A) Methamphet Ur Ql Scn See Note (Cutoff 500) None Note: [id number] E@Reenter manual test result: NEGATIVE@by Jia Lentz at 10/19/20 1640.Responsible Observer: Methamphetamine Urine Methamphetamines Screen 400.5140 (A) oxyCODONE Ur Ql Scn See Note (Cutoff 100) None Note: [id number] E@Reenter manual test result: NEGATIVE@by Jia Lentz at 10/19/20 1640.Responsible Observer: Oxycodone Urine Oxycodone Screen 400.5210 (A) Buprenorphine Ur Ql See Note (Cutoff 10) None Note: [id number] E@Reenter manual test result: NEGATIVE@by Jia Lentz at 10/19/20 1640.Responsible Observer: Buprenorphine Urine Buprenorphine Screen 400.5230 (A) Amphetamines Ur Ql Scn>500 ng/mL See Note (Cutoff 500) None Note: [id number] E@Reenter manual test result: NEGATIVE@by Jia Lentz at 10/19/20 1640.Responsible Observer: Amphetamines Urine Amphetamines Screen 400.5160 (A) Barbiturates Ur Ql Scn>200 ng/mL See Note (Cutoff 200) None Note: [id number] E@Reenter manual test result: NEGATIVE@by Jia Lentz at 10/19/20 1640.Responsible Observer: Barbiturates Urine Barbiturates 400.5200 (A) Reviewed by Maya Barron MD on 10/20; All test results are final unless otherwise noted. Reported Physicians [facility] Ordered by Maya Barron MD on 10/19/2020 Collected: 10/19/2020 Reported: 10/19/2020 16:40 Reported Physicians See Note None Note: Reported Physicians:Ordering: Les Vanegas: Fady Raza To: Maya Barron Reviewed by Maya Barron MD on 10/20; All test results are final unless otherwise noted. TROPONIN [facility] Ordered by Maya Barron MD on 10/19/2020 Collected: 10/19/2020 Reported: 10/19/2020 16:10 Troponin I SerPl-mCnc Less Than 0.015 (0.00-0.09) N (Normal) Note: Less than 0.09 NG/ML Negative 0.10 - 0.77 NG/ML High Risk0.78 NG/ML or Greater PositiveThe WHO defined the cutoff (definition for diagnosis of CO)for this method as 0.78 ng/ml.Responsible Observer: Troponin I Troponin I 600.1101 (G) Reviewed by Maya Barron MD on 10/20; All test results are final unless otherwise noted. Reported Physicians [facility] Ordered by Maya Barron MD on 10/19/2020 Collected: 10/19/2020 Reported: 10/19/2020 16:10 Reported Physicians See Note None Note: Reported Physicians:Ordering: Les Vanegas: Fady Raza To: Maya Barron Reviewed by Maya Barron MD on 10/20; All test results are final unless otherwise noted. TSH w/ reflex to Free T4 [facility] Ordered by Maya Barron MD on 10/19/2020 Collected: 10/19/2020 Reported: 10/19/2020 16:08 TSH SerPl DL<=0.005 mIU/L-aCnc 1.66 MicroInternationalUnitsPerMilliLiter_[Arbitrary_Con (0.35-5. 50) N (Normal) Note: Responsible Observer: TSH TSH 600 .7060 (D) Reviewed by Maya Barron MD on 10/20; All test results are final unless otherwise noted. Reported Physicians [facility] Ordered by Maya Barron MD on 10/19/2020 Collected: 10/19/2020 Reported: 10/19/2020 16:08 Reported Physicians See Note None Note: Reported Physicians:Ordering: Les Vanegasding: Fady Raza To: Maya Barron Reviewed by Maya Barron MD on 10/20; All test results are final unless otherwise noted. CMP [facility] Ordered by Maya Barron MD on 10/19/2020 Collected: 10/19/2020 Reported: 10/19/2020 16:08 ALT SerPl w P-5'-P-cCnc 10 enzyme_unit_per_liter (10-49) N (Normal) Note: Responsible Observer: SGPT/ALT SGP T/ALT 400.1750 (G) Calcium SerPl-mCnc 8.7 MilliGramsPerDeciLiter_[Mass_Concentration_Units] (8.5-10.1) N (Normal) Note: Responsible Observer: Calcium Calc ium 400.2500 (G) Bilirub SerPl-mCnc 0.3 MilliGramsPerDeciLiter_[Mass_Concentration_Units] (0.3-1.2) N (Normal) Note: Responsible Observer: T KELLIE Total Bilirubin 400.2600 (G) CO2 SerPl-sCnc 22 MilliMolesPerLiter_[Substance_Concentration_Units] (20-31) N (Normal) Note: Responsible Observer: CO2 Carbon D ioxide 400.1400 (G) Chloride SerPl-sCnc 109 MilliMolesPerLiter_[Substance_Concentration_Units] (99-109) N (Normal) Note: Responsible Observer: Chloride Chl oride 400.1250 (G) Glucose SerPl-mCnc 100 MilliGramsPerDeciLiter_[Mass_Concentration_Units] (74-106) N (Normal) Note: Responsible Observer: Glucose Gluc ose 400.1500 (G) Potassium SerPl-sCnc 3.5 MilliMolesPerLiter_[Substance_Concentration_Units] (3.5-5.5) N (Normal) Note: Responsible Observer: K Potassium 400.1210 (G) Prot SerPl-mCnc 7.1 GramsPerDeciLiter_[Mass_Concentration_Units] (5.7-8.2) N (Normal) Note: Responsible Observer: TP Total Pro tein 400.2800 (G) Sodium SerPl-sCnc 139 MilliMolesPerLiter_[Substance_Concentration_Units] (132-146) N (Normal) Note: Responsible Observer: Sodium Sodiu m 400.1100 (G) AST SerPl w P-5'-P-cCnc 8 enzyme_unit_per_liter (0-33) N (Normal) Note: Responsible Observer: SGOT / AST S GOT / AST 400.1900 (G) BUN SerPl-mCnc 6 MilliGramsPerDeciLiter_[Mass_Concentration_Units] (9-23) L (Low) Note: Responsible Observer: BUN Blood Ur ea Nitrogen 400.1000 (G) Anion Gap SerPl-sCnc 12 MilliMolesPerLiter_[Substance_Concentration_Units] (8-16) N (Normal) Note: Responsible Observer: ANION GAP AN ION GAP 400.1402 (E) Albumin SerPl BCP-mCnc 3.1 GramsPerDeciLiter_[Mass_Concentration_Units] (3.2-4.8) L (Low) Note: Responsible Observer: Albumin [place]bu min 400.2700 (G) ALP SerPl-cCnc 86 enzyme_unit_per_liter (45-129) N (Normal) Note: Responsible Observer: ALP Alkaline Phosphatase 400.2000 (G) GFR/BSA.pred SerPlBld-ArVRat Greater Than 60 (ABOVE 60) None Note: Responsible Observer: GFR Glomerul ar Filt Rate Calc 400.1605 (D) Creatinine 0.6 MilliGramsPerDeciLiter_[Mass_Concentration_Units] (0.5-1.1) N (Normal) Note: Responsible Observer: Creatinine C reatinine 400.1600 (G) Reviewed by Maya Barron MD on 10/20; All test results are final unless otherwise noted. CBC W AUTO DIFF [facility] Ordered by Maya Barron MD on 10/19/2020 Collected: 10/19/2020 Reported: 10/19/2020 16:32 MCV BldCo Auto 88 FemtoLiter_[SI_Volume_Units] (80-96) N (Normal) Note: Responsible Observer: MCV MCV 100 .0600 (B) RDW RBC Auto 12 percent (11-15) N (Normal) Note: Responsible Observer: RDW RDW 100 .0900 (B) Manual diff Bld NO None Note: Responsible Observer: CBC Manual D ifferential Added 100.1990 (B) PMV Bld 10.0 FemtoLiter_[SI_Volume_Units] (9.1-13.1) N (Normal) Note: Responsible Observer: MPV MPV 100 .1100 (B) Imm Granulocytes Bld Ql Auto See Note (0-2) N (Normal) Note: [id number] Ob server support technician: IG% IG% 100.1375 (B) Hct VFr Bld Auto 36.2 percent (37-47) L (Low) Note: Responsible Observer: HEMATOCRIT H EMATOCRIT 100.0500 (B) MCHC BldCo-mCnc 35 GramsPerDeciLiter_[Mass_Concentration_Units] (33-37) N (Normal) Note: Responsible Observer: MCHC MCHC 1 00.0800 (B) Imm Granulocytes # Bld Auto 0.0 Unit (0-0.1) None Note: Responsible Observer: IG# IG# 100 .1400 (B) Monocytes/leuk NFr Bld Auto 7.4 percent (4-12) N (Normal) Note: Responsible Observer: MONO % MONO % 100.1225 (B) Hgb Bld-sCnc 12.7 GramsPerDeciLiter_[Mass_Concentration_Units] (10.7-15.4) N (Normal) Note: Responsible Observer: HGB HEMOGLOB IN 100.0400 (B) WBC # Bld Auto 6.6 ThousandsPerMicroLiter_[Number_Concentration_Units] (4.45-10 .71) N (Normal) Note: Responsible Observer: WBC WHITE BL OOD COUNT 100.0100 (E) Basophils # Bld Auto 0.0 Unit (0.0-0.2) N (Normal) Note: Responsible Observer: BASO # BASO# 100.1350 (B) Basophils/leuk NFr Bld Auto 0.3 percent (0.4-1.3) L (Low) Note: Responsible Observer: BASO % BASO % 100.1325 (B) Eosinophil # Bld Auto 0.0 Unit (0.0-0.5) N (Normal) Note: Responsible Observer: EOS # EOS# 100.1300 (D) Eosinophil/leuk NFr Bld Auto 0.6 percent (0-7) N (Normal) Note: Responsible Observer: EOS % EOS % 100.1275 (B) Lymphocytes # Bld Auto 1.4 Unit (0.6-4.6) N (Normal) Note: Responsible Observer: LYMPH # LYMP H# 100.1200 (B) Lymphocytes/leuk NFr Bld Auto 21.4 percent (14-46) N (Normal) Note: Responsible Observer: LYMPH % LYMP H % 100.1175 (B) Monocytes # Bld Auto 0.5 Unit (0.2-1.2) N (Normal) Note: Responsible Observer: MONO # MONO# 100.1250 (C) Neutrophils # Bld Auto 4.6 Unit (1.7-7.6) N (Normal) Note: Responsible Observer: NEUT# NEUT# 100.1150 (B) Neutrophils/leuk NFr Bld Auto 70.0 percent (41-77) N (Normal) Note: Responsible Observer: NEUT% NEUT% 100.1125 (B) Platelet # Bld Auto 259 ThousandsPerMicroLiter_[Number_Concentration_Units] (130-472 ) N (Normal) Note: Responsible Observer: PLATELET COU NT PLATELET COUNT 100.1000 (D) MCH RBC Qn Auto 31 [place]_[SI_Mass_Units] (27-31) N (Normal) Note: Responsible Observer: MCH MCH 100 .0700 (B) RBC # Bld Auto 4.13 MillionsPerMicroLiter_[Number_Concentration_Units] (4.20-5.4 0) L (Low) Note: Responsible Observer: RBC Red Bloo d Count 100.0300 (B) NUCLEATED RED BLOOD CELL# 0 Unit None Note: Responsible Observer: NRBC# NUCLEA VICTOR M RBC 100.1362 (A) NUCLEATED RED BLOOD CELL 0 percent None Note: Responsible Observer: NRBC% NRBC% 100.1360 (B) Reviewed by Maya Barron MD on 10/20; All test results are final unless otherwise noted. Reported Physicians [facility] Ordered by Maya Barron MD on 10/19/2020 Collected: 10/19/2020 Reported: 10/19/2020 16:33 Reported Physicians See Note None Note: Reported Physicians:Ordering: Les Vanegas: Fady Raza To: Maya Barron Reviewed by Maya Barron MD on 10/20; All test results are final unless otherwise noted. CRP, C-REACTIVE PROTEIN [facility] [facility] Ordered by Maya Barron MD on 10/19/2020 Collected: 10/19/2020 Reported: 10/19/2020 16:08 CRP SerPl-mCnc 7.5 MilliGramsPerLiter_[Mass_Concentration_Units] (0.0-5.0) H (High) Note: Responsible Observer: CRP C-Reacti ve Protein 401.4355 (H) Reviewed by Maya Barron MD on 10/20; All test results are final unless otherwise noted. SED RATE [facility] Ordered by Maya Barron MD on 10/19/2020 Collected: 10/19/2020 Reported: 10/19/2020 16:32 ESR Bld Qn Westrgrn 22 (0-20) H (High) Note: [facility]: [facility]@by Jia Lentz at 10/19/20 1632.Responsible Observer: SED RATE SED RATE 100.6400 (B) Reviewed by Maya Barron MD on 10/20; All test results are final unless otherwise noted. Reported Physicians [facility] Ordered by Maya Barron MD on 10/19/2020 Collected: 10/19/2020 Reported: 10/19/2020 16:33 Reported Physicians See Note None Note: Reported Physicians:Ordering: Les Vanegas: Fady Raza To: Maya Barron Reviewed by Maya Barron MD on 10/20; All test results are final unless otherwise noted. PT/PTT [facility] Ordered by Maya Barron MD on 10/08/2020 Collected: 10/08/2020 Reported: 10/08/2020 03:22 Screen aPTT 26.0 second (22.7-31.6) N (Normal) Note: Responsible Observer: PTT PTT 200 .0500 (A) INR 1.0 (0.9-1.1) N (Normal) Note: THE INR IS OPERATIONALLY DEFINED F OR FRESH PLASMA FROMPATIENTS STABILIZED ON ORAL ANTICOAGULANTS.ROUTINE ANTICOAGULANT THERAPY 2.0-3.0RECURRENT SYSTEMIC EMBOLISM/HEART VALVE REPLACEMENT 2.5-3.5Responsible Observer: INR INR 200.0400 (A) Prothrombin Time (Patient) 10.6 second (9.6-12.3) N (Normal) Note: Responsible Observer: PT Prothromb in Time 200.0300 (A) Reviewed by Maya Barron MD on 10/09; All test results are final unless otherwise noted. Reported Physicians [facility] Ordered by Maya Barron MD on 10/08/2020 Collected: 10/08/2020 Reported: 10/08/2020 03:22 Reported Physicians See Note None Note: Reported Physicians:Ordering: Sana Recinosending: Sammie Ann To: Maya Barron Reviewed by Maya Barron MD on 10/09; All test results are final unless otherwise noted. BMP [facility] Ordered by Maya Barron MD on 10/08/2020 Collected: 10/08/2020 Reported: 10/08/2020 03:21 Calcium SerPl-mCnc 8.5 MilliGramsPerDeciLiter_[Mass_Concentration_Units] (8.5-10.1) N (Normal) Note: Responsible Observer: Calcium Calc ium 400.2500 (G) CO2 SerPl-sCnc 22 MilliMolesPerLiter_[Substance_Concentration_Units] (20-31) N (Normal) Note: Responsible Observer: CO2 Carbon D ioxide 400.1400 (G) Chloride SerPl-sCnc 109 MilliMolesPerLiter_[Substance_Concentration_Units] (99-109) N (Normal) Note: Responsible Observer: Chloride Chl oride 400.1250 (G) Glucose SerPl-mCnc 84 MilliGramsPerDeciLiter_[Mass_Concentration_Units] (74-106) N (Normal) Note: Responsible Observer: Glucose Gluc ose 400.1500 (G) Potassium SerPl-sCnc 3.6 MilliMolesPerLiter_[Substance_Concentration_Units] (3.5-5.5) N (Normal) Note: Responsible Observer: K Potassium 400.1210 (G) Sodium SerPl-sCnc 138 MilliMolesPerLiter_[Substance_Concentration_Units] (132-146) N (Normal) Note: Responsible Observer: Sodium Sodiu m 400.1100 (G) BUN SerPl-mCnc 11 MilliGramsPerDeciLiter_[Mass_Concentration_Units] (9-23) N (Normal) Note: Responsible Observer: BUN Blood Ur ea Nitrogen 400.1000 (G) Anion Gap SerPl-sCnc 11 MilliMolesPerLiter_[Substance_Concentration_Units] (8-16) N (Normal) Note: Responsible Observer: ANION GAP AN ION GAP 400.1402 (E) GFR/BSA.pred SerPlBld-ArVRat Greater Than 60 (ABOVE 60) None Note: Responsible Observer: GFR Glomerul ar Filt Rate Calc 400.1605 (D) Creatinine 0.5 MilliGramsPerDeciLiter_[Mass_Concentration_Units] (0.5-1.1) N (Normal) Note: Responsible Observer: Creatinine C reatinine 400.1600 (G) Reviewed by Maya Barron MD on 10/09; All test results are final unless otherwise noted. Reported Physicians [facility] Ordered by Maya Barron MD on 10/08/2020 Collected: 10/08/2020 Reported: 10/08/2020 03:21 Reported Physicians See Note None Note: Reported Physicians:Ordering: Sana Recinosending: Jasper AnnhCtricia To: Maya Barron Reviewed by Maya Barron MD on 10/09; All test results are final unless otherwise noted. CBC W AUTO DIFF [facility] Ordered by Maya Barron MD on 10/08/2020 Collected: 10/08/2020 Reported: 10/08/2020 03:12 MCV BldCo Auto 89 FemtoLiter_[SI_Volume_Units] (80-96) N (Normal) Note: Responsible Observer: MCV MCV 100 .0600 (B) RDW RBC Auto 12 percent (11-15) N (Normal) Note: Responsible Observer: RDW RDW 100 .0900 (B) Manual diff Bld NO None Note: Responsible Observer: CBC Manual D ifferential Added 100.1990 (B) PMV Bld 10.0 FemtoLiter_[SI_Volume_Units] (9.1-13.1) N (Normal) Note: Responsible Observer: MPV MPV 100 .1100 (B) Imm Granulocytes Bld Ql Auto See Note (0-2) N (Normal) Note: [id number] Ob server support technician: IG% IG% 100.1375 (B) Hct VFr Bld Auto 36.0 percent (37-47) L (Low) Note: Responsible Observer: HEMATOCRIT H EMATOCRIT 100.0500 (B) MCHC BldCo-mCnc 35 GramsPerDeciLiter_[Mass_Concentration_Units] (33-37) N (Normal) Note: Responsible Observer: MCHC MCHC 1 00.0800 (B) Imm Granulocytes # Bld Auto 0.0 Unit (0-0.1) None Note: Responsible Observer: IG# IG# 100 .1400 (B) Monocytes/leuk NFr Bld Auto 7.8 percent (4-12) N (Normal) Note: Responsible Observer: MONO % MONO % 100.1225 (B) Hgb Bld-sCnc 12.6 GramsPerDeciLiter_[Mass_Concentration_Units] (10.7-15.4) N (Normal) Note: Responsible Observer: HGB HEMOGLOB IN 100.0400 (B) WBC # Bld Auto 8.3 ThousandsPerMicroLiter_[Number_Concentration_Units] (4.45-10 .71) N (Normal) Note: Responsible Observer: WBC WHITE BL OOD COUNT 100.0100 (E) Basophils # Bld Auto 0.0 Unit (0.0-0.2) N (Normal) Note: Responsible Observer: BASO # BASO# 100.1350 (B) Basophils/leuk NFr Bld Auto 0.2 percent (0.4-1.3) L (Low) Note: Responsible Observer: BASO % BASO % 100.1325 (B) Eosinophil # Bld Auto 0.1 Unit (0.0-0.5) N (Normal) Note: Responsible Observer: EOS # EOS# 100.1300 (D) Eosinophil/leuk NFr Bld Auto 1.2 percent (0-7) N (Normal) Note: Responsible Observer: EOS % EOS % 100.1275 (B) Lymphocytes # Bld Auto 2.4 Unit (0.6-4.6) N (Normal) Note: Responsible Observer: LYMPH # LYMP H# 100.1200 (B) Lymphocytes/leuk NFr Bld Auto 28.4 percent (14-46) N (Normal) Note: Responsible Observer: LYMPH % LYMP H % 100.1175 (B) Monocytes # Bld Auto 0.7 Unit (0.2-1.2) N (Normal) Note: Responsible Observer: MONO # MONO# 100.1250 (C) Neutrophils # Bld Auto 5.2 Unit (1.7-7.6) N (Normal) Note: Responsible Observer: NEUT# NEUT# 100.1150 (B) Neutrophils/leuk NFr Bld Auto 62.3 percent (41-77) N (Normal) Note: Responsible Observer: NEUT% NEUT% 100.1125 (B) Platelet # Bld Auto 250 ThousandsPerMicroLiter_[Number_Concentration_Units] (130-472 ) N (Normal) Note: Responsible Observer: PLATELET COU NT PLATELET COUNT 100.1000 (D) MCH RBC Qn Auto 31 PicoGram_[SI_Mass_Units] (27-31) N (Normal) Note: Responsible Observer: MCH MCH 100 .0700 (B) RBC # Bld Auto 4.07 MillionsPerMicroLiter_[Number_Concentration_Units] (4.20-5.4 0) L (Low) Note: Responsible Observer: RBC Red Bloo d Count 100.0300 (B) NUCLEATED RED BLOOD CELL# 0 Unit None Note: Responsible Observer: NRBC# NUCLEA VICTOR M RBC 100.1362 (A) NUCLEATED RED BLOOD CELL 0 percent None Note: Responsible Observer: NRBC% NRBC% 100.1360 (B) Reviewed by Maya Barron MD on 10/09; All test results are final unless otherwise noted. MAGNESIUM [facility] Ordered by Maya Barron MD on 10/08/2020 Collected: 10/08/2020 Reported: 10/08/2020 03:17 Magnesium SerPl-mCnc 1.8 MilliGramsPerDeciLiter_[Mass_Concentration_Units] (1.3-2.7) N (Normal) Note: Responsible Observer: Magnesium Ma gnesium 400.3300 (G) Reviewed by Maya Barron MD on 10/09; All test results are final unless otherwise noted. D-DIMER [facility] Ordered by Maya Barron MD on 10/08/2020 Collected: 10/08/2020 Reported: 10/08/2020 03:27 D Dimer PPP-aCnc 0.26 MilliGramsPerLiter_[Mass_Concentration_Units] (0.0-0.50) N (Normal) Note: @ Has QC been run for this test to day?PLEASE NOTE: THIS TEST WAS PERFORMED USING A PARTICLE-ENHANCED, IMMUNOTURBIDIMETRIC ASSAY AND HAS A SINGLE,CLINICALLY DERIVED CUTOFF OF 0.50 MG/L.Responsible Observer: D-DIMER D- DIMER 200.0901 (A) NOTES See Note None Note: Is test to R/O PE, DVT or VTE? Y Reviewed by Maya Barron MD on 10/09; All test results are final unless otherwise noted. Reported Physicians [facility] Ordered by Maya Barron MD on 10/08/2020 Collected: 10/08/2020 Reported: 10/08/2020 03:27 Reported Physicians See Note None Note: Reported Physicians:Ordering: Sana Recinosending: Sammie Ann To: Maya Barron Reviewed by Maya Barron MD on 10/09; All test results are final unless otherwise noted. SED RATE [facility] Ordered by Maya Barron MD on 10/04/2020 Collected: 10/04/2020 Reported: 10/04/2020 18:05 ESR Bld Qn Westrgrn 16 (0-20) N (Normal) Note: @Reenter manual test result: 16@by Jia Lentz at 10/04/20 1805.Responsible Observer: SED RATE SED RATE 100.6400 (B) Reviewed by Maya Barron MD on 10/09; All test results are final unless otherwise noted. Reported Physicians [facility] Ordered by Maya Barron MD on 10/04/2020 Collected: 10/04/2020 Reported: 10/04/2020 18:06 Reported Physicians See Note None Note: Reported Physicians:Ordering: Les Vanegas: Fady Raza To: Maya Barron Reviewed by Maya Barron MD on 10/09; All test results are final unless otherwise noted. TROPONIN [facility] Ordered by Maya Barron MD on 10/04/2020 Collected: 10/04/2020 Reported: 10/04/2020 17:35 Troponin I SerPl-mCnc Less Than 0.015 (0.00-0.09) N (Normal) Note: Less than 0.09 NG/ML Negative 0.10 - 0.77 NG/ML High Risk0.78 NG/ML or Greater PositiveThe WHO defined the cutoff (definition for diagnosis of CO)for this method as 0.78 ng/ml.Responsible Observer: Troponin I Troponin I 600.1101 (G) Reviewed by Maya Barron MD on 10/09; All test results are final unless otherwise noted. Reported Physicians [facility] Ordered by Maya Barron MD on 10/04/2020 Collected: 10/04/2020 Reported: 10/04/2020 17:35 Reported Physicians See Note None Note: Reported Physicians:Ordering: Les Vanegas: Fady Raza To: Maya Barron Reviewed by Maya Barron MD on 10/09; All test results are final unless otherwise noted. TSH w/ reflex to Free T4 [facility] Ordered by Maya Barron MD on 10/04/2020 Collected: 10/04/2020 Reported: 10/04/2020 17:42 TSH SerPl DL<=0.005 mIU/L-aCnc 1.92 MicroInternationalUnitsPerMilliLiter_[Arbitrary_Con (0.35-5. 50) N (Normal) Note: Responsible Observer: TSH TSH 600 .7060 (D) Reviewed by Maya Barron MD on 10/09; All test results are final unless otherwise noted. Reported Physicians [facility] Ordered by Maya Barron MD on 10/04/2020 Collected: 10/04/2020 Reported: 10/04/2020 17:42 Reported Physicians See Note None Note: Reported Physicians:Ordering: Les Vanegasding: Fady Raza To: Maya Barron Reviewed by Maya Barron MD on 10/09; All test results are final unless otherwise noted. CBC W AUTO DIFF [facility] Ordered by Maya Barron MD on 10/04/2020 Collected: 10/04/2020 Reported: 10/04/2020 16:59 MCV BldCo Auto 88 FemtoLiter_[SI_Volume_Units] (80-96) N (Normal) Note: Responsible Observer: MCV MCV 100 .0600 (B) RDW RBC Auto 12 percent (11-15) N (Normal) Note: Responsible Observer: RDW RDW 100 .0900 (B) Manual diff Bld NO None Note: Responsible Observer: CBC Manual D ifferential Added 100.1990 (B) PMV Bld 9.7 FemtoLiter_[SI_Volume_Units] (9.1-13.1) N (Normal) Note: Responsible Observer: MPV MPV 100 .1100 (B) Imm Granulocytes Bld Ql Auto See Note (0-2) N (Normal) Note: [id number] Ob server support technician: IG% IG% 100.1375 (B) Hct VFr Bld Auto 37.4 percent (37-47) N (Normal) Note: Responsible Observer: HEMATOCRIT H EMATOCRIT 100.0500 (B) MCHC BldCo-mCnc 35 GramsPerDeciLiter_[Mass_Concentration_Units] (33-37) N (Normal) Note: Responsible Observer: MCHC MCHC 1 00.0800 (B) Imm Granulocytes # Bld Auto 0.0 Unit (0-0.1) None Note: Responsible Observer: IG# IG# 100 .1400 (B) Monocytes/leuk NFr Bld Auto 8.8 percent (4-12) N (Normal) Note: Responsible Observer: MONO % MONO % 100.1225 (B) Hgb Bld-sCnc 13.0 GramsPerDeciLiter_[Mass_Concentration_Units] (10.7-15.4) N (Normal) Note: Responsible Observer: HGB HEMOGLOB IN 100.0400 (B) WBC # Bld Auto 6.9 ThousandsPerMicroLiter_[Number_Concentration_Units] (4.45-10 .71) N (Normal) Note: Responsible Observer: WBC WHITE BL OOD COUNT 100.0100 (E) Basophils # Bld Auto 0.0 Unit (0.0-0.2) N (Normal) Note: Responsible Observer: BASO # BASO# 100.1350 (B) Basophils/leuk NFr Bld Auto 0.1 percent (0.4-1.3) L (Low) Note: Responsible Observer: BASO % BASO % 100.1325 (B) Eosinophil # Bld Auto 0.0 Unit (0.0-0.5) N (Normal) Note: Responsible Observer: EOS # EOS# 100.1300 (D) Eosinophil/leuk NFr Bld Auto 0.3 percent (0-7) N (Normal) Note: Responsible Observer: EOS % EOS % 100.1275 (B) Lymphocytes # Bld Auto 1.6 Unit (0.6-4.6) N (Normal) Note: Responsible Observer: LYMPH # LYMP H# 100.1200 (B) Lymphocytes/leuk NFr Bld Auto 23.0 percent (14-46) N (Normal) Note: Responsible Observer: LYMPH % LYMP H % 100.1175 (B) Monocytes # Bld Auto 0.6 Unit (0.2-1.2) N (Normal) Note: Responsible Observer: MONO # MONO# 100.1250 (C) Neutrophils # Bld Auto 4.7 Unit (1.7-7.6) N (Normal) Note: Responsible Observer: NEUT# NEUT# 100.1150 (B) Neutrophils/leuk NFr Bld Auto 67.5 percent (41-77) N (Normal) Note: Responsible Observer: NEUT% NEUT% 100.1125 (B) Platelet # Bld Auto 259 ThousandsPerMicroLiter_[Number_Concentration_Units] (130-472 ) N (Normal) Note: Responsible Observer: PLATELET COU NT PLATELET COUNT 100.1000 (D) MCH RBC Qn Auto 31 PicoGram_[SI_Mass_Units] (27-31) N (Normal) Note: Responsible Observer: MCH MCH 100 .0700 (B) RBC # Bld Auto 4.26 MillionsPerMicroLiter_[Number_Concentration_Units] (4.20-5.4 0) N (Normal) Note: Responsible Observer: RBC Red Bloo d Count 100.0300 (B) NUCLEATED RED BLOOD CELL# 0 Unit None Note: Responsible Observer: NRBC# NUCLEA VICTOR M RBC 100.1362 (A) NUCLEATED RED BLOOD CELL 0 percent None Note: Responsible Observer: NRBC% NRBC% 100.1360 (B) Reviewed by Maya aBrron MD on 10/09; All test results are final unless otherwise noted. [facility] Ordered by Maya Barron MD on 10/04/2020 Collected: 10/04/2020 Reported: 10/04/2020 17:42 ALT SerPl w P-5'-P-cCnc 11 enzyme_unit_per_liter (10-49) N (Normal) Note: Responsible Observer: SGPT/ALT SGP T/ALT 400.1750 (G) Calcium SerPl-mCnc 8.6 MilliGramsPerDeciLiter_[Mass_Concentration_Units] (8.5-10.1) N (Normal) Note: Responsible Observer: Calcium Calc ium 400.2500 (G) Bilirub SerPl-mCnc 0.3 MilliGramsPerDeciLiter_[Mass_Concentration_Units] (0.3-1.2) N (Normal) Note: Responsible Observer: T KELLIE Total Bilirubin 400.2600 (G) CO2 SerPl-sCnc 23 MilliMolesPerLiter_[Substance_Concentration_Units] (20-31) N (Normal) Note: Responsible Observer: CO2 Carbon D ioxide 400.1400 (G) Chloride SerPl-sCnc 108 MilliMolesPerLiter_[Substance_Concentration_Units] (99-109) N (Normal) Note: Responsible Observer: Chloride Chl oride 400.1250 (G) Glucose SerPl-mCnc 97 MilliGramsPerDeciLiter_[Mass_Concentration_Units] (74-106) N (Normal) Note: Responsible Observer: Glucose Gluc ose 400.1500 (G) Potassium SerPl-sCnc 3.8 MilliMolesPerLiter_[Substance_Concentration_Units] (3.5-5.5) N (Normal) Note: Responsible Observer: K Potassium 400.1210 (G) Prot SerPl-mCnc 7.0 GramsPerDeciLiter_[Mass_Concentration_Units] (5.7-8.2) N (Normal) Note: Responsible Observer: TP Total Pro tein 400.2800 (G) Sodium SerPl-sCnc 139 MilliMolesPerLiter_[Substance_Concentration_Units] (132-146) N (Normal) Note: Responsible Observer: Sodium Sodiu m 400.1100 (G) AST SerPl w P-5'-P-cCnc 7 enzyme_unit_per_liter (0-33) N (Normal) Note: Responsible Observer: SGOT / AST S GOT / AST 400.1900 (G) BUN SerPl-mCnc 6 MilliGramsPerDeciLiter_[Mass_Concentration_Units] (9-23) L (Low) Note: Responsible Observer: BUN Blood Ur ea Nitrogen 400.1000 (G) Anion Gap SerPl-sCnc 12 MilliMolesPerLiter_[Substance_Concentration_Units] (8-16) N (Normal) Note: Responsible Observer: ANION GAP AN ION GAP 400.1402 (E) Albumin SerPl BCP-mCnc 3.0 GramsPerDeciLiter_[Mass_Concentration_Units] (3.2-4.8) L (Low) Note: Responsible Observer: Albumin [place] min 400.2700 (G) ALP SerPl-cCnc 88 enzyme_unit_per_liter (45-129) N (Normal) Note: Responsible Observer: ALP Alkaline Phosphatase 400.2000 (G) GFR/BSA.pred SerPlBld-ArVRat Greater Than 60 (ABOVE 60) None Note: Responsible Observer: GFR Glomerul ar Filt Rate Calc 400.1605 (D) Creatinine 0.6 MilliGramsPerDeciLiter_[Mass_Concentration_Units] (0.5-1.1) N (Normal) Note: Responsible Observer: Creatinine C reatinine 400.1600 (G) Reviewed by Maya Barron MD on 10/09; All test results are final unless otherwise noted. Reported Physicians [facility] Ordered by Maya Barron MD on 10/04/2020 Collected: 10/04/2020 Reported: 10/04/2020 17:42 Reported Physicians See Note None Note: Reported Physicians:Ordering: Les Vanegas AAttending: Fady Raza To: Maya Barron Reviewed by Maya Barron MD on 10/09; All test results are final unless otherwise noted. BHCG Quantitative [facility] Ordered by Maya Barron MD on 10/03/2020 Collected: 10/03/2020 Reported: 10/03/2020 20:23 B-HCG [facility] [address] MilliInternationalUnitsPerMilliLiter_[Arbitrary_Con (0-10) H (High) Note: @Instrument will autodiluteAPPROXI MATE GESTATION AGE APRROXIMATE HCG RANGE 0-1 WEEK 0 - 50 1-2 WEEKS 40 - 300 2-3 WEEKS 100 - 1,000 3-4 WEEKS 500 - 6,000 1-2 MONTHS 5,000 - 200,000 2-3 MONTHS 10,000 - 100,000 2ND TRIMESTER 3,000 - 50,000 3RD TRIMESTER 1,000 - 50,000Responsible Observer: BHCG Quant BHCG Quantitative 600.5006 (G) Reviewed by Maya Barron MD on 10/04; All test results are final unless otherwise noted. Reported Physicians [facility] Ordered by Maya Barron MD on 10/03/2020 Collected: 10/03/2020 Reported: 10/03/2020 20:23 Reported Physicians See Note None Note: Reported Physicians:Ordering: Yoli NapolesAttending: Charles Silva To: Maya Barron Reviewed by Maya Barron MD on 10/04; All test results are final unless otherwise noted. CBC W AUTO DIFF [facility] Ordered by Maya Barron MD on 10/03/2020 Collected: 10/03/2020 Reported: 10/03/2020 19:56 MCV BldCo Auto 88 FemtoLiter_[SI_Volume_Units] (80-96) N (Normal) Note: Responsible Observer: MCV MCV 100 .0600 (B) RDW RBC Auto 12 percent (11-15) N (Normal) Note: Responsible Observer: RDW RDW 100 .0900 (B) Manual diff Bld Manual Diff Added None Note: Responsible Observer: CBC Manual D ifferential Added 100.1990 (B) PMV Bld 9.7 FemtoLiter_[SI_Volume_Units] (9.1-13.1) N (Normal) Note: Responsible Observer: MPV MPV 100 .1100 (B) Imm Granulocytes Bld Ql Auto See Note (0-2) N (Normal) Note: [id number] Ob server support technician: IG% IG% 100.1375 (B) Hct VFr Bld Auto 38.5 percent (37-47) N (Normal) Note: Responsible Observer: HEMATOCRIT H EMATOCRIT 100.0500 (B) MCHC BldCo-mCnc 35 GramsPerDeciLiter_[Mass_Concentration_Units] (33-37) N (Normal) Note: Responsible Observer: MCHC MCHC 1 00.0800 (B) Imm Granulocytes # Bld Auto 0.0 Unit (0-0.1) None Note: Responsible Observer: IG# IG# 100 .1400 (B) Monocytes/leuk NFr Bld Auto 5.0 percent (4-12) N (Normal) Note: Responsible Observer: MONO % MONO % 100.1225 (B) Hgb Bld-sCnc 13.5 GramsPerDeciLiter_[Mass_Concentration_Units] (10.7-15.4) N (Normal) Note: Responsible Observer: HGB HEMOGLOB IN 100.0400 (B) WBC # Bld Auto 11.2 ThousandsPerMicroLiter_[Number_Concentration_Units] (4.45-10 .71) H (High) Note: Responsible Observer: WBC WHITE BL OOD COUNT 100.0100 (E) Basophils # Bld Auto 0.0 Unit (0.0-0.2) N (Normal) Note: Responsible Observer: BASO # BASO# 100.1350 (B) Basophils/leuk NFr Bld Auto 0.2 percent (0.4-1.3) L (Low) Note: Responsible Observer: BASO % BASO % 100.1325 (B) Eosinophil # Bld Auto 0.0 Unit (0.0-0.5) N (Normal) Note: Responsible Observer: EOS # EOS# 100.1300 (D) Eosinophil/leuk NFr Bld Auto 0.1 percent (0-7) N (Normal) Note: Responsible Observer: EOS % EOS % 100.1275 (B) Lymphocytes # Bld Auto 1.5 Unit (0.6-4.6) N (Normal) Note: Responsible Observer: LYMPH # LYMP H# 100.1200 (B) Lymphocytes/leuk NFr Bld Auto 13.8 percent (14-46) L (Low) Note: Responsible Observer: LYMPH % LYMP H % 100.1175 (B) Monocytes # Bld Auto 0.6 Unit (0.2-1.2) N (Normal) Note: Responsible Observer: MONO # MONO# 100.1250 (C) Neutrophils # Bld Auto 9.0 Unit (1.7-7.6) H (High) Note: Responsible Observer: NEUT# NEUT# 100.1150 (B) Neutrophils/leuk NFr Bld Auto 80.5 percent (41-77) H (High) Note: Responsible Observer: NEUT% NEUT% 100.1125 (B) Platelet # Bld Auto 264 ThousandsPerMicroLiter_[Number_Concentration_Units] (130-472 ) N (Normal) Note: Responsible Observer: PLATELET COU NT PLATELET COUNT 100.1000 (D) MCH RBC Qn Auto 31 PicoGram_[SI_Mass_Units] (27-31) N (Normal) Note: Responsible Observer: MCH MCH 100 .0700 (B) RBC # Bld Auto 4.38 MillionsPerMicroLiter_[Number_Concentration_Units] (4.20-5.4 0) N (Normal) Note: Responsible Observer: RBC Red Bloo d Count 100.0300 (B) NUCLEATED RED BLOOD CELL# 0 Unit None Note: Responsible Observer: NRBC# NUCLEA VICTOR M RBC 100.1362 (A) NUCLEATED RED BLOOD CELL 0 percent None Note: Responsible Observer: NRBC% NRBC% 100.1360 (B) NOTES See Note None Note: @10/03/20 1948: MANUAL DIFF added. RFLXG = DIFF. Reviewed by Maya Barron MD on 10/04; All test results are final unless otherwise noted. [facility] Ordered by Maya Barron MD on 10/03/2020 Collected: 10/03/2020 Reported: 10/03/2020 20:03 ALT SerPl w P-5'-P-cCnc 13 enzyme_unit_per_liter (10-49) N (Normal) Note: Responsible Observer: SGPT/ALT SGP T/ALT 400.1750 (G) Calcium SerPl-mCnc 9.0 MilliGramsPerDeciLiter_[Mass_Concentration_Units] (8.5-10.1) N (Normal) Note: Responsible Observer: Calcium Calc ium 400.2500 (G) Bilirub SerPl-mCnc 0.3 MilliGramsPerDeciLiter_[Mass_Concentration_Units] (0.3-1.2) N (Normal) Note: Responsible Observer: T KELLIE Total Bilirubin 400.2600 (G) CO2 SerPl-sCnc 25 MilliMolesPerLiter_[Substance_Concentration_Units] (20-31) N (Normal) Note: Responsible Observer: CO2 Carbon D ioxide 400.1400 (G) Chloride SerPl-sCnc 108 MilliMolesPerLiter_[Substance_Concentration_Units] (99-109) N (Normal) Note: Responsible Observer: Chloride Chl oride 400.1250 (G) Glucose SerPl-mCnc 79 MilliGramsPerDeciLiter_[Mass_Concentration_Units] (74-106) N (Normal) Note: Responsible Observer: Glucose Gluc ose 400.1500 (G) Potassium SerPl-sCnc 4.3 MilliMolesPerLiter_[Substance_Concentration_Units] (3.5-5.5) N (Normal) Note: Responsible Observer: K Potassium 400.1210 (G) Prot SerPl-mCnc 7.3 GramsPerDeciLiter_[Mass_Concentration_Units] (5.7-8.2) N (Normal) Note: Responsible Observer: TP Total Pro tein 400.2800 (G) Sodium SerPl-sCnc 138 MilliMolesPerLiter_[Substance_Concentration_Units] (132-146) N (Normal) Note: Responsible Observer: Sodium Sodiu m 400.1100 (G) AST SerPl w P-5'-P-cCnc 10 enzyme_unit_per_liter (0-33) N (Normal) Note: Responsible Observer: SGOT / AST S GOT / AST 400.1900 (G) BUN SerPl-mCnc 5 MilliGramsPerDeciLiter_[Mass_Concentration_Units] (9-23) L (Low) Note: Responsible Observer: BUN Blood Ur ea Nitrogen 400.1000 (G) Anion Gap SerPl-sCnc 9 MilliMolesPerLiter_[Substance_Concentration_Units] (8-16) N (Normal) Note: Responsible Observer: ANION GAP AN ION GAP 400.1402 (E) Albumin SerPl BCP-mCnc 3.4 GramsPerDeciLiter_[Mass_Concentration_Units] (3.2-4.8) N (Normal) Note: Responsible Observer: Albumin [place] min 400.2700 (G) ALP SerPl-cCnc 92 enzyme_unit_per_liter (45-129) N (Normal) Note: Responsible Observer: ALP Alkaline Phosphatase 400.2000 (G) GFR/BSA.pred SerPlBld-ArVRat Greater Than 60 (ABOVE 60) None Note: Responsible Observer: GFR [place] ar Filt Rate Calc 400.1605 (D) Creatinine 0.6 MilliGramsPerDeciLiter_[Mass_Concentration_Units] (0.5-1.1) N (Normal) Note: Responsible Observer: Creatinine C reatinine 400.1600 (G) Reviewed by Maya Barron MD on 10/04; All test results are final unless otherwise noted. Reported [facility] Ordered by Maya Barron MD on 10/03/2020 Collected: 10/03/2020 Reported: 10/03/2020 20:03 Reported Physicians See Note None Note: Reported Physicians:Ordering: Cliff Napolesending: Charles Silva To: Maya Barron Reviewed by Maya Barron MD on 10/04; All test results are final unless otherwise noted. FREE T4 (LAB) [facility] Ordered by Maya Barron MD on 10/03/2020 Collected: 10/03/2020 Reported: 10/03/2020 20:08 T4 Free SerPl-mCnc 0.97 NanoGramsPerDeciLiter_[Mass_Concentration_Units] (0.89-1.76) N (Normal) Note: Responsible Observer: FREE T4 Free Thyroxine 600.7005 (D) Reviewed by Maya Barron MD on 10/04; All test results are final unless otherwise noted. Reported Physicians [facility] Ordered by Maya Barron MD on 10/03/2020 Collected: 10/03/2020 Reported: 10/03/2020 20:08 Reported Physicians See Note None Note: Reported Physicians:Ordering: Yoli NapolesAttending: Charles Silva To: Maya Barron Reviewed by Maya Barron MD on 10/04; All test results are final unless otherwise noted. MANUAL DIFF [facility] Ordered by Maya Barron MD on 10/03/2020 Collected: 10/03/2020 Reported: 10/03/2020 19:56 MANUAL DIFF See Note None Note: NOTES OTHER/NOT INTERPRETED Cells counted 100 Lymphocytes # Bld Manual 17 %Monocytes # Bld Manual 3 %Morphology Bld-Imp APPEARS NORMAL Neutrophils # Bld Manual 80 %Platelet # Bld Est APPEARS NORMAL @10/03/20 1948: MANUAL DIFF added. RFLXG = DIFF.Responsible Observer: TOTAL CELLS TOTAL CELLS COUNTED 100.2105 (A) Reviewed by Maya Barron MD on 10/04; All test results are final unless otherwise noted. Reported Physicians [facility] Ordered by Maya Barron MD on 10/03/2020 Collected: 10/03/2020 Reported: 10/03/2020 19:56 Reported Physicians See Note None Note: Reported Physicians:Ordering: Yoli NapolesAttending: Charles Silva To: Maya Barron Reviewed by Maya Barron MD on 10/04; All test results are final unless otherwise noted. TROPONIN [facility] Ordered by Maya Barron MD on 10/03/2020 Collected: 10/03/2020 Reported: 10/03/2020 20:07 Troponin I SerPl-mCnc Less Than 0.015 (0.00-0.09) N (Normal) Note: Less than 0.09 NG/ML Negative 0.10 - 0.77 NG/ML High Risk0.78 NG/ML or Greater PositiveThe WHO defined the cutoff (definition for diagnosis of CO)for this method as 0.78 ng/ml.Responsible Observer: Troponin I Troponin I 600.1101 (G) Reviewed by Maya Barron MD on 10/04; All test results are final unless otherwise noted. Reported Physicians [facility] Ordered by Maya Barron MD on 10/03/2020 Collected: 10/03/2020 Reported: 10/03/2020 20:07 Reported Physicians See Note None Note: Reported Physicians:Ordering: Cliff Napolesending: Charles Silva To: Maya Barron Reviewed by Maya Barron MD on 10/04; All test results are final unless otherwise noted. ADD ON MICROSCOPIC [facility] Ordered by Maya Barron MD on 10/03/2020 Collected: 10/03/2020 Reported: 10/03/2020 19:52 ADD ON MICROSCOPIC See Note (0-5) None Note: NOTES OTHER/NOT INTERPRETED Bacteria UrnS Ql Micro SMALL AMOUNT Bacteria UrnS Ql Micro SMALL AMOUNT Bacteria UrnS Ql Micro L Bacteria UrnS Ql Micro Bacteria UrnS Ql Micro Bacteria UrnS Ql Micro Bacteria UrnS Ql Micro [id number] Bacteria UrnS Ql Micro Bacteria UrnS Ql Micro SMALL AMOUNT Cells UrnS Micro FEW Cells UrnS Micro FEW Cells UrnS Micro FEW Cells UrnS Micro L Cells UrnS Micro Cells UrnS Micro Cells UrnS Micro Cells UrnS Micro Cells UrnS Micro WBC # Ur Manual 1-2 Reason for ordering culture: Abnormal findings UA@10/03/20 194: UA W/ MICRO added. RFLXG = UMIC CIF.Method of Collection:: VoidedResponsible Observer: WBC WBC 300.5005 (A) Reviewed by Maya Barron MD on 10/04; All test results are final unless otherwise noted. Reported Physicians [facility] Ordered by Maya Barron MD on 10/03/2020 Collected: 10/03/2020 Reported: 10/03/2020 19:52 Reported Physicians See Note None Note: Reported Physicians:Ordering: Cliff Napolesending: Charles Silva To: Maya Barron Reviewed by Maya Barron MD on 10/04; All test results are final unless otherwise noted. UA W/ CULTURE IF ABNORMAL [facility] Ordered by Maya Barron MD on 10/03/2020 Collected: 10/03/2020 Reported: 10/03/2020 19:52 Urobilinogen Ur Ql See Note (0.2-1 EU/dl) None Note: 0.2 EU/dl0.2 [id number]/[id number] E U/dlResponsible Observer: UROBILINOGEN UROBILINOGEN 300.4500 (C) RBC # Ur Strip NEGATIVE (NEGATIVE) None Note: Responsible Observer: BLOOD BLOOD 300.4652 (C) Prot Ur Ql Strip See Note (NEGATIVE) None Note: [id number] EResponsible Observer: PROTEIN PROTEIN 300.3750 (C) Ketones Ur Ql Strip See Note (NEGATIVE) None Note: [id number] EResponsible Observer: KETONE KETONE 300.3900 (C) Bilirub Ur Ql Strip.auto See Note (NEGATIVE) None Note: [id number] EResponsible Observer: BILIRUBIN BILIRUBIN 300.4550 (C) Glucose Ur Strip.auto-mCnc NEGATIVE (NEGATIVE) None Note: Responsible Observer: GLUCOSE GLUC OSE 300.3850 (C) Appearance Ur See Note (CLEAR) None Note: CLEARCLEARLCLEARResponsible Observ er: APPEARANCE APPEARANCE 300.3400 (A) Color Ur See Note None Note: YELLOWYELLOWLYELLOWResponsible Obs erver: COLOR COLOR 300.3330 (A) Leukocyte esterase Ur Ql Strip See Note (NEGATIVE) None Note: [id number]@DO MICR O!!!!A Culture has been added to this specimen per established criteriaResponsible Observer: LEUKOCYTES LEUKOCYTES 300.3576 (C) Nitrite Ur Ql Strip See Note (NEGATIVE) None Note: [id number] EResponsible Observer: NITRITE NITRITE 300.3652 (B) pH Ur Strip 7.5 (5-8) None Note: Responsible Observer: PH PH 300.3 450 (C) Sp Gr Ur Refractometry 1.004 (1.005-1.030) None Note: Responsible Observer: SP GRAVITY U RINE SPECIFIC GRAVITY-MAN 300.3475 (C) URINE MICROSCOPIC? (CIF) Microscopic Added None Note: Responsible Observer: UA URINE SHAWN ROSCOPIC PENDING 300.4665 (D) NOTES See Note None Note: Reason for ordering culture: Abnor mal findings UA@10/03/201940: UA W/ MICRO added. RFLXG = UMIC CIF.Method of Collection:: Voided Reviewed by Maya Barron MD on 10/04; All test results are final unless otherwise noted. Urine culture [facility] Ordered by Maya Barron MD on 10/03/2020 Collected: 10/03/2020 Reported: 10/04/2020 13:10 Bacteria Ur Cult See Note None Note: NGNo growth.L1NG NOTES See Note None Note: @10/03/201951: Urine culture adde d. RFLXG = CULT.ADD. Reviewed by Maya Barron MD on 10/04; All test results are final unless otherwise noted. Reported Physicians [facility] Ordered by Maya Barron MD on 10/03/2020 Collected: 10/03/2020 Reported: 10/04/2020 13:10 Reported Physicians See Note None Note: Reported Physicians:Ordering: Yoli NapolesAttending: Charles Silva To: Maya Barron Reviewed by Maya Barron MD on 10/04; All test results are final unless otherwise noted. TROPONIN [facility] Ordered by Maya Barron MD on 09/18/2020 Collected: 09/18/2020 Reported: 09/18/2020 20:10 Troponin I SerPl-mCnc Less Than 0.015 (0.00-0.09) N (Normal) Note: Less than 0.09 NG/ML Negative 0.10 - 0.77 NG/ML High Risk0.78 NG/ML or Greater PositiveThe WHO defined the cutoff (definition for diagnosis of CO)for this method as 0.78 ng/ml.Responsible Observer: Troponin I Troponin I 600.1101 (G) Reviewed by Maya Barron MD on 09/20; All test results are final unless otherwise noted. Reported Physicians [facility] Ordered by Maya Barron MD on 09/18/2020 Collected: 09/18/2020 Reported: 09/18/2020 20:10 Reported Physicians See Note None Note: Reported Physicians:Ordering: Yoli NapolesAttending: Yoli SilvaCopy To: Maya Barron Reviewed by Maya Barron MD on 09/20; All test results are final unless otherwise noted. CBC W AUTO DIFF [facility] Ordered by Maya Barron MD on 09/18/2020 Collected: 09/18/2020 Reported: 09/18/2020 19:43 MCV BldCo Auto 88 FemtoLiter_[SI_Volume_Units] (80-96) N (Normal) Note: Responsible Observer: MCV MCV 100 .0600 (B) RDW RBC Auto 12 percent (11-15) N (Normal) Note: Responsible Observer: RDW RDW 100 .0900 (B) Manual diff Bld NO None Note: Responsible Observer: CBC Manual D ifferential Added 100.1990 (B) PMV Bld 10.0 FemtoLiter_[SI_Volume_Units] (9.1-13.1) N (Normal) Note: Responsible Observer: MPV MPV 100 .1100 (B) Imm Granulocytes Bld Ql Auto See Note (0-2) N (Normal) Note: [id number] Ob server support technician: IG% IG% 100.1375 (B) Hct VFr Bld Auto 38.4 percent (37-47) N (Normal) Note: Responsible Observer: HEMATOCRIT H EMATOCRIT 100.0500 (B) MCHC BldCo-mCnc 35 GramsPerDeciLiter_[Mass_Concentration_Units] (33-37) N (Normal) Note: Responsible Observer: MCHC MCHC 1 00.0800 (B) Imm Granulocytes # Bld Auto 0.0 Unit (0-0.1) None Note: Responsible Observer: IG# IG# 100 .1400 (B) Monocytes/leuk NFr Bld Auto 7.4 percent (4-12) N (Normal) Note: Responsible Observer: MONO % MONO % 100.1225 (B) Hgb Bld-sCnc 13.4 GramsPerDeciLiter_[Mass_Concentration_Units] (10.7-15.4) N (Normal) Note: Responsible Observer: HGB HEMOGLOB IN 100.0400 (B) WBC # Bld Auto 6.9 ThousandsPerMicroLiter_[Number_Concentration_Units] (4.45-10 .71) N (Normal) Note: Responsible Observer: WBC WHITE BL OOD COUNT 100.0100 (E) Basophils # Bld Auto 0.0 Unit (0.0-0.2) N (Normal) Note: Responsible Observer: BASO # BASO# 100.1350 (B) Basophils/leuk NFr Bld Auto 0.3 percent (0.4-1.3) L (Low) Note: Responsible Observer: BASO % BASO % 100.1325 (B) Eosinophil # Bld Auto 0.1 Unit (0.0-0.5) N (Normal) Note: Responsible Observer: EOS # EOS# 100.1300 (D) Eosinophil/leuk NFr Bld Auto 0.7 percent (0-7) N (Normal) Note: Responsible Observer: EOS % EOS % 100.1275 (B) Lymphocytes # Bld Auto 2.3 Unit (0.6-4.6) N (Normal) Note: Responsible Observer: LYMPH # LYMP H# 100.1200 (B) Lymphocytes/leuk NFr Bld Auto 33.4 percent (14-46) N (Normal) Note: Responsible Observer: LYMPH % LYMP H % 100.1175 (B) Monocytes # Bld Auto 0.5 Unit (0.2-1.2) N (Normal) Note: Responsible Observer: MONO # MONO# 100.1250 (C) Neutrophils # Bld Auto 4.0 Unit (1.7-7.6) N (Normal) Note: Responsible Observer: NEUT# NEUT# 100.1150 (B) Neutrophils/leuk NFr Bld Auto 58.1 percent (41-77) N (Normal) Note: Responsible Observer: NEUT% NEUT% 100.1125 (B) Platelet # Bld Auto 239 ThousandsPerMicroLiter_[Number_Concentration_Units] (130-472 ) N (Normal) Note: Responsible Observer: PLATELET COU NT PLATELET COUNT 100.1000 (D) MCH RBC Qn Auto 31 PicoGram_[SI_Mass_Units] (27-31) N (Normal) Note: Responsible Observer: MCH MCH 100 .0700 (B) RBC # Bld Auto 4.37 MillionsPerMicroLiter_[Number_Concentration_Units] (4.20-5.4 0) N (Normal) Note: Responsible Observer: RBC Red Bloo d Count 100.0300 (B) NUCLEATED RED BLOOD CELL# 0 Unit None Note: Responsible Observer: NRBC# NUCLEA VICTOR M RBC 100.1362 (A) NUCLEATED RED BLOOD CELL 0 percent None Note: Responsible Observer: NRBC% NRBC% 100.1360 (B) Reviewed by Maya Barron MD on 09/20; All test results are final unless otherwise noted. [facility] Ordered by Maya Barron MD on 09/18/2020 Collected: 09/18/2020 Reported: 09/18/2020 20:10 ALT SerPl w P-5'-P-cCnc 13 enzyme_unit_per_liter (10-49) N (Normal) Note: Responsible Observer: SGPT/ALT SGP T/ALT 400.1750 (G) Calcium SerPl-mCnc 8.7 MilliGramsPerDeciLiter_[Mass_Concentration_Units] (8.5-10.1) N (Normal) Note: Responsible Observer: Calcium Calc ium 400.2500 (G) Bilirub SerPl-mCnc 0.3 MilliGramsPerDeciLiter_[Mass_Concentration_Units] (0.3-1.2) N (Normal) Note: Responsible Observer: T KELLIE Total Bilirubin 400.2600 (G) CO2 SerPl-sCnc 26 MilliMolesPerLiter_[Substance_Concentration_Units] (20-31) N (Normal) Note: Responsible Observer: CO2 Carbon D ioxide 400.1400 (G) Chloride SerPl-sCnc 107 MilliMolesPerLiter_[Substance_Concentration_Units] (99-109) N (Normal) Note: Responsible Observer: Chloride Chl oride 400.1250 (G) Glucose SerPl-mCnc 81 MilliGramsPerDeciLiter_[Mass_Concentration_Units] (74-106) N (Normal) Note: Responsible Observer: Glucose Gluc ose 400.1500 (G) Potassium SerPl-sCnc 3.4 MilliMolesPerLiter_[Substance_Concentration_Units] (3.5-5.5) L (Low) Note: Responsible Observer: K Potassium 400.1210 (G) Prot SerPl-mCnc 7.6 GramsPerDeciLiter_[Mass_Concentration_Units] (5.7-8.2) N (Normal) Note: Responsible Observer: TP Total Pro tein 400.2800 (G) Sodium SerPl-sCnc 137 MilliMolesPerLiter_[Substance_Concentration_Units] (132-146) N (Normal) Note: Responsible Observer: Sodium Sodiu m 400.1100 (G) AST SerPl w P-5'-P-cCnc 10 enzyme_unit_per_liter (0-33) N (Normal) Note: Responsible Observer: SGOT / AST S GOT / AST 400.1900 (G) BUN SerPl-mCnc 6 MilliGramsPerDeciLiter_[Mass_Concentration_Units] (9-23) L (Low) Note: Responsible Observer: BUN Blood Ur ea Nitrogen 400.1000 (G) Anion Gap SerPl-sCnc 7 MilliMolesPerLiter_[Substance_Concentration_Units] (8-16) L (Low) Note: Responsible Observer: ANION GAP AN ION GAP 400.1402 (E) Albumin SerPl BCP-mCnc 3.7 GramsPerDeciLiter_[Mass_Concentration_Units] (3.2-4.8) N (Normal) Note: Responsible Observer: Albumin [place] min 400.2700 (G) ALP SerPl-cCnc 90 enzyme_unit_per_liter (45-129) N (Normal) Note: Responsible Observer: ALP Alkaline Phosphatase 400.2000 (G) GFR/BSA.pred SerPlBld-ArVRat Greater Than 60 (ABOVE 60) None Note: Responsible Observer: GFR Glomerul ar Filt Rate Calc 400.1605 (D) Creatinine 0.6 MilliGramsPerDeciLiter_[Mass_Concentration_Units] (0.5-1.1) N (Normal) Note: Responsible Observer: Creatinine C reatinine 400.1600 (G) Reviewed by Maya Barron MD on 09/20; All test results are final unless otherwise noted. Reported Physicians [facility] Ordered by Maya Barron MD on 09/18/2020 Collected: 09/18/2020 Reported: 09/18/2020 20:10 Reported Physicians See Note None Note: Reported Physicians:Ordering: Yoli NapolesAttending: Charles Silva To: Maya Barron Reviewed by Maya Barron MD on 09/20; All test results are final unless otherwise noted. BHCG, QUANTITATIVE [facility] Ordered by Maya Barron MD on 09/18/2020 Collected: 09/18/2020 Reported: 09/18/2020 20:21 B-HCG [facility] [id number] MilliInternationalUnitsPerMilliLiter_[Arbitrary_Con (0-10) H (High) Note: APPROXIMATE GESTATION AGE APRROXIMATE HCG RANGE 0-1 WEEK 0 - 50 1-2 WEEKS 40 - 300 2-3 WEEKS 100 - 1,000 3-4 WEEKS 500 - 6,000 1-2 MONTHS 5,000 - 200,000 2-3 MONTHS 10,000 - 100,000 2ND TRIMESTER 3,000 - 50,000 3RD TRIMESTER 1,000 - 50,000Responsible Observer: BHCG,QUANT BHCG, QUANTITATIVE 600.5006 (G) Reviewed by Maya Barron MD on 09/20; All test results are final unless otherwise noted. Reported Physicians [facility] Ordered by Maya Barron MD on 09/18/2020 Collected: 09/18/2020 Reported: 09/18/2020 20:22 Reported Physicians See Note None Note: Reported Physicians:Ordering: Susi Napoles: Charles Silva To: Maya Barron Reviewed by Maya Barron MD on 09/20; All test results are final unless otherwise noted. Urine culture [facility] Ordered by Cat Gutierrez RPA on 09/11/2020 Collected: 09/11/2020 Reported: 09/12/2020 13:11 Bacteria Ur Cult See Note None Note: NGNo growth.L1NG NOTES See Note None Note: GEOR[place]IANA PICKARD IN OTHER NAME IN MEDICAL RECORD Reviewed by Cat Gutierrez RPA on 09/12; All test results are final unless otherwise noted. Reported Physicians [facility] Ordered by Cat Gutierrez RPA on 09/11/2020 Collected: 09/11/2020 Reported: 09/12/2020 13:11 Reported Physicians See Note None Note: Reported Physicians:Ordering: Cat ConwayAttending: Cat Gutierrez Reviewed by Cat Gutierrez RPA on 09/12; All test results are final unless otherwise noted. UA W/ CULTURE IF ABNORMAL [facility] Ordered by Maya Barron MD on 09/10/2020 Collected: 09/10/2020 Reported: 09/10/2020 17:48 Urobilinogen Ur Ql See Note (0.2-1 EU/dl) None Note: 0.2 EU/dl0.2 EU/[id number] E U/dlResponsible Observer: UROBILINOGEN UROBILINOGEN 300.4500 (C) RBC # Ur Strip NEGATIVE (NEGATIVE) None Note: Responsible Observer: BLOOD BLOOD 300.4652 (C) Prot Ur Ql Strip See Note (NEGATIVE) None Note: [id number] EResponsible Observer: PROTEIN PROTEIN 300.3750 (C) Ketones Ur Ql Strip See Note (NEGATIVE) None Note: [id number] ble Observer: KETONE KETONE 300.3900 (C) Bilirub Ur Ql Strip.auto See Note (NEGATIVE) None Note: [id number] EResponsible Observer: BILIRUBIN BILIRUBIN 300.4550 (C) Glucose Ur Strip.auto-mCnc NEGATIVE (NEGATIVE) None Note: Responsible Observer: GLUCOSE GLUC OSE 300.3850 (C) Appearance Ur See Note (CLEAR) None Note: CLEARCLEARLCLEARResponsible Observ er: APPEARANCE APPEARANCE 300.3400 (A) Color Ur See Note None Note: YELLOWYELLOWLYELLOWResponsible Obs erver: COLOR COLOR 300.3330 (A) Leukocyte esterase Ur Ql Strip See Note (NEGATIVE) None Note: [id number] EResponsible Observer: LEUKOCYTES LEUKOCYTES 300.3576 (C) Nitrite Ur Ql Strip See Note (NEGATIVE) None Note: [id number] EResponsible Observer: NITRITE NITRITE 300.3652 (B) pH Ur Strip 6.5 (5-8) None Note: Responsible Observer: PH PH 300.3 450 (C) Sp Gr Ur Refractometry 1.006 (1.005-1.030) None Note: Responsible Observer: SP GRAVITY U RINE SPECIFIC GRAVITY-MAN 300.3475 (C) URINE MICROSCOPIC? (CIF) NO None Note: Responsible Observer: UA URINE SHAWN ROSCOPIC PENDING 300.4665 (D) NOTES See Note None Note: Reason for ordering culture: Abnor mal findings UAMethod of Collection:: Voided Reviewed by Maya Barron MD on 09/11; All test results are final unless otherwise noted. Reported Physicians [facility] Ordered by Maya Barron MD on 09/10/2020 Collected: 09/10/2020 Reported: 09/10/2020 17:48 Reported Physicians See Note None Note: Reported Physicians:Ordering: Les Vanegas AAttending: Fady Raza To: Maya Barron Reviewed by Maya Barron MD on 09/11; All test results are final unless otherwise noted. BHCG, QUANTITATIVE [facility] Ordered by Maya Barron MD on 09/10/2020 Collected: 09/10/2020 Reported: 09/10/2020 15:48 B-HCG SerPl-aCnc [id number] MilliInternationalUnitsPerMilliLiter_[Arbitrary_Con (0-10) H (High) Note: @Instrument will autodiluteAPPROXI MATE GESTATION AGE APRROXIMATE HCG RANGE 0-1 WEEK 0 - 50 1-2 WEEKS 40 - 300 2-3 WEEKS 100 - 1,000 3-4 WEEKS 500 - 6,000 1-2 MONTHS 5,000 - 200,000 2-3 MONTHS 10,000 - 100,000 2ND TRIMESTER 3,000 - 50,000 3RD TRIMESTER 1,000 - 50,000Responsible Observer: BHCG,QUANT BHCG, QUANTITATIVE 600.5006 (G) Reviewed by Maya Barron MD on 09/11; All test results are final unless otherwise noted. Reported Physicians [facility] Ordered by Maya Barron MD on 09/10/2020 Collected: 09/10/2020 Reported: 09/10/2020 15:49 Reported Physicians See Note None Note: Reported Physicians:Ordering: Les Vanegas: Fady Raza To: Maya Barron Reviewed by Maya Barron MD on 09/11; All test results are final unless otherwise noted. ABO/Rh Type [facility] Ordered by Maya Barron MD on 09/10/2020 Collected: 09/10/2020 Reported: 09/10/2020 15:43 Blood bank studies Yes None Note: Responsible Observer: Prev. Histor y? Previous History? 100.0800 (A) Blood Type See Note None Note: OPO PositiveLResponsible Observer: Blood Type Blood Type 110.0950 (C) Reviewed by Maya Barron MD on 09/11; All test results are final unless otherwise noted. Reported Physicians [facility] Ordered by Maya Barron MD on 09/10/2020 Collected: 09/10/2020 Reported: 09/10/2020 15:43 Reported Physicians See Note None Note: Reported Physicians:Ordering: Les Vanegas: Fady Raza To: Maya Barron Reviewed by Maya Barron MD on 09/11; All test results are final unless otherwise noted. COVID QUEST [facility] Ordered by Maya Barron MD on 08/23/2020 Collected: 08/23/2020 Reported: 08/25/2020 03:57 COVID-19 ТАТЬЯНА (SARS-CoV-2) NOT DETECTED (NOT DETECTED) None Note: A Not Detected (negative) test res ult for this testmeans that SARS- CoV-2 RNA was not present in the specimenabove the limit of detection. A negative result does notrule out the possibility of COVID-19 and should not beused as the sole basis for treatment or patient managementdecisions. If COVID-19 is still suspected, based onexposure history together with other clinical findings,re- testing should be considered in [facility]. Laboratory test results shouldalways be considered in the context of clinicalobservations and epidemiological data in making a finaldiagnosis and patient management decisions.Please review the "Fact Sheets" and FDA authorizedlabeling available for health care providers andpatients using the following websites:https://www.[employer]/home/Covid-19/HCP/NAAT/fact-tuuyp5nyxjz://www.[employer]/home/Cov id-19/Patients/NAAT/fact-zkudf7Sbcr test has been authorized by the FDA under anEmergency Use Authorization (EUA) for use by authorizedlaboratories.Due to the current public health emergency, [employer] is receiving a high volume of samples froma wide variety of swabs and media for COVID-19 testing.In order to serve patients during this public healthcrisis, samples from appropriate clinical sources arebeing tested. Negative test results derived fromspecimens received in non-commercially manufacturedviral collection and transport media, or in media andsample collection kits not yet authorized by FDA forCOVID-19 testing should be cautiously evaluated and thepatient potentially subjected to extra precautions suchas additional clinical monitoring, including collectionof an additional specimen.Methodology: Nucleic Acid Amplification Test (NAAT)includes RT-PCR or TMAAdditional information about COVID-19 can be foundat the [place] website:www.[employer]/Covid19.THIS TEST WAS PERFORMED AT:[facility] [id number] MERATI,MDResponsible Observer: COVID-19 COVID-19 ТАТЬЯНА (SARS-CoV-2) [id number] 914.6563 (GTx) Reviewed by Maya Barron MD on 08/25; All test results are final unless otherwise noted. Reported Physicians [facility] Ordered by Maya Barron MD on 08/23/2020 Collected: 08/23/2020 Reported: 08/25/2020 03:57 Reported Physicians See Note None Note: Reported Physicians:Ordering: Sana Recinosending: Sammie Ann To: Maya Barron Reviewed by Maya Barron MD on 08/25; All test results are final unless otherwise noted. [facility] Strep [facility] Ordered by Maya Barron MD on 08/15/2020 [address] [place], [address] Collected: 08/15/2020 Reported: 08/15/2020 11:47 tel :[phone] strep antigen normal (negative) N (Normal) Reviewed by Maya Barron MD on 08/15; All test results are final unless otherwise noted. Urinalysis w/out microscopy [facility] Ordered by Maya Barron MD on 08/15/2020 [address] [place], [address] Specimen Source: Urine Collected: 08/15/2020 Reporte d: 08/15/2020 11:03 tel:[phone] bilirubin normal (neg) N (Normal) blood normal (neg) N (Normal) glucose normal (neg) N (Normal) ketone normal (neg) N (Normal) leukocytes normal (neg) N (Normal) nitrites normal (neg) N (Normal) pH 6 (5.0-8.5) N (Normal) protein normal (neg-trace) N (Normal) specific gravity 1.020 (1.005-1.025) N (Normal) urobilinogen 0.2 (.2-1) N (Normal) Reviewed by Maya Barron MD on 08/15; All test results are final unless otherwise noted. Sweta Raquel SARS/FLU [facility] Ordered by Maya Barron MD on 08/15/2020 Collected: 08/15/2020 Reported: 08/15/2020 15:55 Sweta Raquel SARS/FLU See Note None Note: Sweta Raquel is a rapid, automated q ualitative anddifferentiation of Influenza type A,B and GBOG-CEI-8IBUB-RT-PCR testNORMAL VALUE IS "NOT DETECTED".Limitations of the sweta raquel Influenza A/B & WOTP-DMK-7txqhn method.Modifications to manufacturers recommendation and proceduresmay alter performance of the test.Negative results do not preclude Influenza A,B or SARS- DAN0qduggdxash and should not be used as the sole basis fortreatment or other management decisions. Results from theCobas Raquel Influenza A/B & COV2 should be interpeted inconjunction with other laboratory and clinical dataavailable to the clinician.False negative results may occur if a specimen is improperlycollected, transported or handled. False negatives may occurif inadequate numbers of organisms are present in thespecimen.This test has not been evaluated for patients without signsand systoms of influenza and SARS-COV-2 infection.This assay has not been evaluated for patients receivingintranasal administered influenza vaccine.This assay has not been evaluated for immunocompromisedindividuals.This test cannot rule out diseases caused by other bacterialor viral pathogens.[id number]-lil CoV RNA Resp Ql ТАТЬЯНА+probeLNNSARS SARS-COV-2 NOT [id number] NOT [id number] RNA Resp Ql ТАТЬЯНА+probeLNNFLUAInfluenza A Not [id number] A Not Ojyfazts52832-5JQDOD RNA Resp Ql ТАТЬЯНА+probeLNNINBInfluenza B Not [id number] B Not Detected NOTES See Note None Note: [place]NA PICKARD IN OTHER NAME IN MEDICAL RECORD Reviewed by Maya Barron MD on 08/18; All test results are final unless otherwise noted. Throat culture [facility] Ordered by Maya Barron MD on 08/15/2020 Collected: 08/15/2020 Reported: 08/17/2020 06:37 Throat culture results Normal Deisy None Reviewed by Maya Barron MD on 08/18; All test results are final unless otherwise noted. Reported Physicians [facility] Ordered by Maya Barron MD on 08/15/2020 Collected: 08/15/2020 Reported: 08/17/2020 06:37 Reported Physicians See Note None Note: Reported Physicians:Ordering: Maya AlvarengaAttending: Maya Barron Reviewed by Maya Barron MD on 08/18; All test results are final unless otherwise noted. Extended hours FLU/COV2 NAAT [facility] Ordered by Maya Barron MD on 08/15/2020 Collected: 08/15/2020 Reported: 08/15/2020 15:55 Extended hours FLU/COV2 NAAT See Note None Note: TNPNo Reportable ResultLTNPNo Repo rtable [id number] NOTES See Note None Note: GEORGIANA PICKARD IN OTHER NAME IN MEDICAL RECORD Reviewed by Maya Barron MD on 08/16; All test results are final unless otherwise noted. Reported Physicians [facility] Ordered by Maya Barron MD on 08/15/2020 Collected: 08/15/2020 Reported: 08/15/2020 15:55 Reported Physicians See Note None Note: Reported Physicians:Ordering: Maya AlvarengaAttending: Maya Barron Reviewed by Maya Barron MD on 08/16; All test results are final unless otherwise noted. GCAMP [facility] Ordered by Cat Gutierrez RPA on 08/09/2020 Collected: 08/09/2020 Reported: 08/11/2020 06:52 C trach rRNA XXX Ql ТАТЬЯНА+probe See Note (NOT DETECTED) None Note: NOT DETECTEDNOT [id number] 6NOT DETECTEDResponsible Observer: C.Trach RNA Chlamydia trachomatis DNA-ТАТЬЯНА [id number] 913.9900 (GTx) N gonorrhoea rRNA XXX Ql ТАТЬЯНА+probe See Note (NOT DETECTED) None Note: NOT DETECTEDNOT [id number] 6NOT DETECTEDResponsible Observer: GC RNA Neisseria gonorrhoeae DNA -ТАТЬЯНА [id number] 913.9905 (GTx) Chlamydia/GC DNA Note SEE NOTE None Note: The analytical performance charact eristics of thisassay, when used to test SurePath(TM) specimens have beendetermined by [employer]. The modifications havenot been cleared or approved by the FDA. This assay hasbeen validated pursuant to the CLIA regulations and isused for clinical purposes.For additional information, please refer tohttps://education.[employer]/faq/TJE979(This link is being provided for information/educational purposes only.)THIS TEST WAS PERFORMED AT:[facility] [address]TERELLGRACE FERRERDORIE,MDResponsible Observer: GC/Chlam Note Chlamydia/GC DNA Note [id number] 913.1539 (A) NOTES See Note None Note: PICKARD:IN OTHER NAME IN MEDICAL RECORD Reviewed by Cat Gutierrez RPA on 08/12; All test results are final unless otherwise noted. Reported Physicians [facility] Ordered by Cat Gutierrez RPA on 08/09/2020 Collected: 08/09/2020 Reported: 08/11/2020 06:52 Reported Physicians See Note None Note: Reported Physicians:Ordering: Atte nding: Brenda, GaudencioanaCopy To: Maya Barron Reviewed by Cat Gutierrez RPA on 08/12; All test results are final unless otherwise noted. AFFIRM [facility] Ordered by Cat Gutierrez RPA on 08/09/2020 Collected: 08/09/2020 Reported: 08/11/2020 06:52 Dionna species DNA Probe NOT DETECTED (NOT DETECTED) None Note: THIS TEST WAS PERFORMED AT:[employer] [address]HNCZGK MERATI,MDResponsible Observer: Dionna DNA Dionna species DNA Probe [id number] 913.2350 ([facility]) Gardnerella DNA Probe DETECTED (NOT DETECTED) H (High) Note: Increased levels of G. vaginalis m ay not be significantin the absence of signs and symptoms of bacterialvaginosis.Responsible Observer: Gardnerella DNA Gardnerella DNA Probe [id number] 913.2345 ([facility]) Trichomonas DNA Probe NOT DETECTED (NOT DETECTED) None Note: Responsible Observer: Trichomonas DNA Trichomonas DNA Probe [id number] 913.2340 (GTx) NOTES See Note None Note: PICKARD:IN OTHER NAME IN MEDICAL RECORD Reviewed on 08/11/2020; All test result s are final unless otherwise noted. Reported Physicians [facility] Ordered by Cat Gutierrez [facility] on 08/09/2020 Collected: 08/09/2020 Reported: 08/11/2020 06:52 Reported Physicians See Note None Note: Reported Physicians:Ordering: Atte oralia: Rigo Gutierrez To: Maya Barron Reviewed on 08/11/2020; All test result s are final unless otherwise noted. HPVI [facility] Ordered by Cat Gutierrez [facility] on 08/09/2020 Collected: 08/09/2020 Reported: 08/15/2020 06:53 Thin Prep Vag See Note None Note: See scanned reportSee scanned repo rtLSee scanned reportResponsible Observer: TP w/HPV if ASC Thinprep w/HPV if ASCUS 805.1454 ([facility]) NOTES See Note None Note: [id number] Technique: BRUS H-SPATULABody Site: CERVIX Reviewed by Cat Gutierrez [facility] on 08/15; All test results are final unless otherwise noted. Reported Physicians [facility] Ordered by Cat Gutierrez [facility] on 08/09/2020 Collected: 08/09/2020 Reported: 08/15/2020 06:53 Reported Physicians See Note None Note: Reported Physicians:Ordering: Atte oralia: Rigo Gutierrez To: Maya Barron Reviewed by Cat Gutierrez [facility] on 08/15; All test results are final unless otherwise noted. MEDMATCH [facility] Ordered by Cat Gutierrez [facility] on 08/09/2020 Collected: 08/09/2020 Reported: 08/13/2020 15:56 MEDMATCH See scanned report None Note: Responsible Observer: MEDMATCH MED MATCH [phone] ([facility]) Reviewed by Cat Gutierrez [facility] on 08/14; All test results are final unless otherwise noted. Reported Physicians [facility] Ordered by Cat Gutierrez [facility] on 08/09/2020 Collected: 08/09/2020 Reported: 08/13/2020 15:56 Reported Physicians See Note None Note: Reported Physicians:Ordering: Atte nding: Cat GutierrezCopyifan To: Maya Barron Reviewed by Cat Gutierrez [facility] on 08/14; All test results are final unless otherwise noted. URINALYSIS [facility] Ordered by Cat Gutierrez RPA on 08/09/2020 Collected: 08/09/2020 Reported: 08/09/2020 12:23 Urobilinogen Ur Ql See Note (0.2-1 EU/dl) None Note: 1 EU/dl1 EU/[id number] EU/dlRe sponsible Observer: UROBILINOGEN UROBILINOGEN 300.4500 (C) RBC # Ur Strip NEGATIVE (NEGATIVE) None Note: Responsible Observer: BLOOD BLOOD 300.4650 (C) Prot Ur Ql Strip See Note (NEGATIVE) None Note: [id number] ble Observer: PROTEIN PROTEIN 300.3750 (C) Ketones Ur Ql Strip See Note (NEGATIVE) None Note: [id number] ble Observer: KETONE KETONE 300.3900 (C) Bilirub Ur Ql Strip.auto See Note (NEGATIVE) None Note: [id number] EResponsible Observer: BILIRUBIN BILIRUBIN 300.4550 (C) Glucose Ur Strip.auto-mCnc NEGATIVE (NEGATIVE) None Note: Responsible Observer: GLUCOSE GLUC OSE 300.3850 (C) Appearance Ur See Note (CLEAR) None Note: CLEARCLEARLCLEARResponsible Observ er: APPEARANCE APPEARANCE 300.3400 (A) Color Ur See Note None Note: DARK YELLOWDARK YELLOWLDARK YELLOW Responsible Observer: COLOR COLOR 300.3300 (A) Leukocyte esterase Ur Ql Strip See Note (NEGATIVE) None Note: [id number]@DO MICR O!!!!Responsible Observer: LEUKOCYTES LEUKOCYTES 300.3575 (C) Nitrite Ur Ql Strip See Note (NEGATIVE) None Note: [id number] EResponsible Observer: NITRITE NITRITE 300.3650 (B) pH Ur Strip 5.0 (5-8) None Note: Responsible Observer: PH PH 300.3 450 (C) Sp Gr Ur Refractometry 1.032 (1.005-1.030) None Note: Responsible Observer: SP GRAVITY U RINE SPECIFIC GRAVITY-MAN 300.3475 (C) URINE MICROSCOPIC ADDED Microscopic Added None Note: Responsible Observer: UA URINE SHAWN ROSCOPIC PENDING 300.4660 (D) NOTES See Note None Note: @08/09/20 1210: UA W/ MICRO added. RFLXG = UMIC.Method of Collection:: Clean Catch Reviewed by Cat Gutierrez RPA on 08/14; All test results are final unless otherwise noted. Urine culture [facility] Ordered by Cat Gutierrez RPA on 08/09/2020 Collected: 08/09/2020 Reported: 08/10/2020 08:33 Bacteria Ur Cult See Note None Note: NGNo growth.L1NG Reviewed by Cat Gutierrez RPA on 08/14; All test results are final unless otherwise noted. ADD ON MICROSCOPIC [facility] Ordered by Cat Gutierrez RPA on 08/09/2020 Collected: 08/09/2020 Reported: 08/09/2020 12:23 ADD ON MICROSCOPIC See Note (0-5) H (High) Note: NOTES OTHER/NOT INTERPRETED Bacteria UrnS Ql Micro SMALL AMOUNT Bacteria UrnS Ql Micro SMALL AMOUNT Bacteria UrnS Ql Micro L Bacteria UrnS Ql Micro Bacteria UrnS Ql Micro Bacteria UrnS Ql Micro Bacteria UrnS Ql Micro [id number] Bacteria UrnS Ql Micro Bacteria UrnS Ql Micro SMALL AMOUNT Cells UrnS Micro MODERATE Cells UrnS Micro MODERATE Cells UrnS Micro MODERATE Cells UrnS Micro L Cells UrnS Micro Cells UrnS Micro Cells UrnS Micro Cells UrnS Micro Cells UrnS Micro Mucous Threads UrnS Ql Micro MODERATE AMOUNT Mucous Threads UrnS Ql Micro MODERATE AMOUNT Mucous Threads UrnS Ql Micro L Mucous Threads UrnS Ql Micro Mucous Threads UrnS Ql Micro Mucous Threads UrnS Ql Micro Mucous Threads UrnS Ql Micro [id number] Mucous Threads UrnS Ql Micro Mucous Threads UrnS Ql Micro MODERATE AMOUNT WBC # Ur Manual 5-8 @08/09/20 1210: UA W/ MICRO added. RFLXG = UMIC.Method of Collection:: Clean CatchResponsible Observer: WBC WBC 300.5000 (A) Reviewed by Cat Gutierrez RPA on 08/12; All test results are final unless otherwise noted. Reported Physicians [facility] Ordered by Cat Gutierrez RPA on 08/09/2020 Collected: 08/09/2020 Reported: 08/10/2020 17:47 Reported Physicians See Note None Note: Reported Physicians:Ordering: Atte oralia: Rigo Gutierrez To: Maya Barron Reviewed by Cat Gutierrez RPA on 08/12; All test results are final unless otherwise noted. HCV RFX ТАТЬЯНА [facility] Ordered by Cat Gutierrez RPA on 08/09/2020 Collected: 08/09/2020 Reported: 08/10/2020 17:47 HCV Ab Ser Ql See Note (NON-REACTIVE) None Note: [id number]-[id number] 7NON-REACTIVEResponsible Observer: HEP C ANTIBODY Hepatitis C Antibody [id number] 914.8305 ([facility]) HCV RNA Qualitative (ТАТЬЯНА) 0.54 (<1.00) None Note: HCV antibody was non-reactive. The re is no laboratoryevidence of HCV infection.In most cases, no further action is required. However,if recent HCV exposure is suspected, a test for HCV RNA(test code 38305) is suggested.For additional information please refer tohttp://education.Tel[employer]/faq/HXV82o2(This link is being provided for informational/educational purposes only.)THIS TEST WAS PERFORMED AT:[facility] [address]OSEAS MEANS,MDResponsible Observer: SIG TO C/O SIGNAL TO CUTOFF [id number] 914.8388 (GTx) NOTES See Note None Note: Patient Street Address: [address] [place] [address] [address] [place]: [place] [facility] Zip Code: [address]kf Reviewed by Cat Gutierrez RPA on 08/12; All test results are final unless otherwise noted. Reported Physicians [facility] Ordered by Cat Gutierrez RPA on 08/09/2020 Collected: 08/09/2020 Reported: 08/10/2020 17:47 Reported Physicians See Note None Note: Reported Physicians:Ordering: Atte ndcristiane: Rigo Gutierrez To: Maya Barron Reviewed by Cat Gutierrez RPA on 08/12; All test results are final unless otherwise noted. Type and Screen [facility] Ordered by Cat Gutierrez RPA on 08/09/2020 Collected: 08/09/2020 Reported: 08/09/2020 12:39 Blood bank studies Yes None Note: Responsible Observer: Prev. Histor y? Previous History? 100.0800 (A) Antibody Screen (PN) NEGATIVE None Note: Responsible Observer: Antibody Scr een Antibody Screen (PN) 200.0002 (C) Blood Type See Note None Note: OPO PositiveLResponsible Observer: Blood Type Blood Type 110.0950 (C) Reviewed by Cat Gutierrez RPA on 08/10; All test results are final unless otherwise noted. Reported Physicians [facility] Ordered by Cat Gutierrez RPA on 08/09/2020 Collected: 08/09/2020 Reported: 08/09/2020 12:39 Reported Physicians See Note None Note: Reported Physicians:Ordering: Cat ConwayAttending: Rigo Gutierrez To: Maya Barron Reviewed by Cat Gutierrez RPA on 08/10; All test results are final unless otherwise noted. CBC [facility] Ordered by Cat Gutierrez RPA on 08/09/2020 Collected: 08/09/2020 Reported: 08/09/2020 11:31 MCV BldCo Auto 88.6 FemtoLiter_[SI_Volume_Units] (80-96) N (Normal) Note: Responsible Observer: MCV MCV 100 .0600 (B) RDW RBC Auto 12 percent (11-15) N (Normal) Note: Responsible Observer: RDW RDW 100 .0900 (B) Manual diff Bld NO None Note: Responsible Observer: CBC Manual D ifferential Added 100.1996 (A) PMV Bld 9.8 FemtoLiter_[SI_Volume_Units] (9.1-13.1) N (Normal) Note: Responsible Observer: MPV MPV 100 .1100 (B) Imm Granulocytes Bld Ql Auto See Note (0-2) N (Normal) Note: [id number] Ob server support technician: IG% IG% 100.1375 (B) Hct VFr Bld Auto 39.5 percent (37-47) N (Normal) Note: Responsible Observer: HEMATOCRIT H EMATOCRIT 100.0500 (B) MCHC BldCo-mCnc 34.2 GramsPerDeciLiter_[Mass_Concentration_Units] (33-37) N (Normal) Note: Responsible Observer: MCHC MCHC 1 00.0800 (B) Imm Granulocytes # Bld Auto 0.0 Unit (0-0.1) None Note: Responsible Observer: IG# IG# 100 .1400 (B) Monocytes/leuk NFr Bld Auto 7.2 percent (4-12) N (Normal) Note: Responsible Observer: MONO % MONO % 100.1225 (B) Hgb Bld-sCnc 13.5 GramsPerDeciLiter_[Mass_Concentration_Units] (10.7-15.4) N (Normal) Note: Responsible Observer: HGB HEMOGLOB IN 100.0400 (B) WBC # Bld Auto 5.6 ThousandsPerMicroLiter_[Number_Concentration_Units] (4.45-10 .71) N (Normal) Note: Responsible Observer: WBC WHITE BL OOD COUNT 100.0100 (E) Basophils # Bld Auto 0.0 Unit (0.0-0.2) N (Normal) Note: Responsible Observer: BASO # BASO# 100.1350 (B) Basophils/leuk NFr Bld Auto 0.4 percent (0.4-1.3) N (Normal) Note: Responsible Observer: BASO % BASO % 100.1325 (B) Eosinophil # Bld Auto 0.0 Unit (0.0-0.5) N (Normal) Note: Responsible Observer: EOS # EOS# 100.1300 (D) Eosinophil/leuk NFr Bld Auto 0.5 percent (0-7) N (Normal) Note: Responsible Observer: EOS % EOS % 100.1275 (B) Lymphocytes # Bld Auto 1.7 Unit (0.6-4.6) N (Normal) Note: Responsible Observer: LYMPH # LYMP H# 100.1200 (B) Lymphocytes/leuk NFr Bld Auto 30.3 percent (14-46) N (Normal) Note: Responsible Observer: LYMPH % LYMP H % 100.1175 (B) Monocytes # Bld Auto 0.4 Unit (0.2-1.2) N (Normal) Note: Responsible Observer: MONO # MONO# 100.1250 (C) Neutrophils # Bld Auto 3.4 Unit (1.7-7.6) N (Normal) Note: Responsible Observer: NEUT# NEUT# 100.1150 (B) Neutrophils/leuk NFr Bld Auto 61.4 percent (41-77) N (Normal) Note: Responsible Observer: NEUT% NEUT% 100.1125 (B) Platelet # Bld Auto 270 ThousandsPerMicroLiter_[Number_Concentration_Units] (130-472 ) N (Normal) Note: Responsible Observer: PLATELET COU NT PLATELET COUNT 100.1000 (D) MCH RBC Qn Auto 30.3 PicoGram_[SI_Mass_Units] (27-31) N (Normal) Note: Responsible Observer: MCH MCH 100 .0700 (B) RBC # Bld Auto 4.46 MillionsPerMicroLiter_[Number_Concentration_Units] (4.20-5.4 0) N (Normal) Note: Responsible Observer: RBC Red Bloo d Count 100.0300 (B) NUCLEATED RED BLOOD CELL# 0 Unit None Note: Responsible Observer: NRBC# NUCLEA VICTOR M RBC 100.1362 (A) NUCLEATED RED BLOOD CELL 0 percent None Note: Responsible Observer: NRBC% NRBC% 100.1360 (B) Reviewed by Cat Gutierrez RPA on 08/14; All test results are final unless otherwise noted. TSH [facility] Ordered by Cat Gutierrez RPA on 08/09/2020 Collected: 08/09/2020 Reported: 08/09/2020 14:24 TSH SerPl DL<=0.005 mIU/L-aCnc 1.18 MicroInternationalUnitsPerMilliLiter_[Arbitrary_Con (0.35-5. 50) N (Normal) Note: Responsible Observer: TSH TSH 600 .7055 (D) Reviewed by Cat Gutierrez RPA on 08/14; All test results are final unless otherwise noted. Lead (Venous) Wh.Bld [facility] Ordered by Cat Gutierrez RPA on 08/09/2020 Collected: 08/09/2020 Reported: 08/10/2020 17:47 Lead Bld-sCnc <1 (<5) None Note: See Note 1Note 1This test was faith granados and its analytical performancecharacteristics have been determined by [employer]. It has not been cleared or approved by theA. This assay has been validated pursuant to the CLIAregulations and is used for clinical purposes.THIS TEST WAS PERFORMED AT:[facility] [address]OHGSHDCLAUDY ONEILLesponsible Observer: Lead, WB Lead, Whole Blood [id number] 911.2190 ([facility]) NOTES See Note None Note: Patient Street Address: [address] [place] [address] [address]Patient City: [facility] Zip Code: [address]Xqwklsn Reviewed by Cat Gutierrez RPA on 08/14; All test results are final unless otherwise noted. ncPN REF [facility] Ordered by Cat Gutierrez RPA on 08/09/2020 Collected: 08/09/2020 Reported: 08/13/2020 15:26 T pallidum Ab Ser Ql Aggl See Note (Nonreactive) None Note: [id number] onreactiveResponsible Observer: TP-PA Treponema pallidum Ab (TP-PA) [id number] 908.0286 ([facility]) HIV1 RNA SerPl Ql ТАТЬЯНА+probe See Note None Note: TNPNo Reportable ResultLTNPNo Repo rtable ResultLLEP.LIVENTNPResponsible Observer: HIV 1 RNA, QL T HIV 1 RNA, QL TMA [id number] 908.0254 ([facility]) HBV surface Ag SerPl Ql IA See Note (NON-REACTIVE) None Note: GVD-XMUSYELKRWU-[id number] 5NON-REACTIVEResponsible Observer: HBSAG Hepatitis B Surface Antigen 44507786 910.2004 ([facility]) RUBV IgG SerPl IA-aCnc 1.76 None Note: Index Interpretatio n ----- <0.90 Not consistent with immunity 0.90-0.99 Equivocal > or = 1.00 Consistent with immunityThe presence of rubella IgG antibody suggestsimmunization or past or current infection withrubella virus.THIS TEST WAS PERFORMED AT:[facility]-[address] [address]OIVULX MERATI,MDResponsible Observer: Rubella IgG Ab Rubella IgG Ab [id number] 911.2840 ([facility]) HIV1 Ab SerPlBld Ql IA.rapid See Note None Note: TNPNo Reportable ResultLTNPNo Repo rtable ResultLLEP.LIVENTNPResponsible Observer: HIV 1 AB HIV 1 AB [id number] 908.0250 ([facility]) HBsAg Confirmation See Note None Note: TNPNo Reportable ResultLTNPNo Repo rtable ResultLLEP.LIVENTNPResponsible Observer: HBsAg Confirm HBsAg Confirmation [id number] 910.2006 ([facility]) HIV (1&2) Screen, 4th Gen NON-REACTIVE (NON-REACTIVE) None Note: HIV-1 antigen and HIV-1/HIV-2 anti bodies were notdetected. There is no laboratory evidence of HIVinfection.PLEASE NOTE: This information has been disclosed toyou from records whose confidentiality may beprotected by state law. If your state requires suchprotection, then the state law prohibits you frommaking any further disclosure of the informationwithout the specific written consent of the personto whom it pertains, or as otherwise permitted by law.A general authorization for the release of medical orother information is NOT sufficient for this purpose.For additional information please refer tohttp://education.[employer]/faq/HTQ105(This link is being provided for informational/educational purposes only.)The performance of this assay has not been clinicallyvalidated in patients less than 2 years old.THIS TEST WAS PERFORMED AT:[facility]-[address] [address]VRDSIE MERDORIE,MDResponsible Observer: HIV ABS HIV (1&2) Screen, 4th Gen [id number] 908.0228 ([facility]) Reviewed by Cat Gutierrez RPA on 08/14; All test results are final unless otherwise noted. Reported Physicians [facility] Ordered by Cat Gutierrez RPA on 08/09/2020 Collected: 08/09/2020 Reported: 08/13/2020 15:27 Reported Physicians See Note None Note: Reported Physicians:Ordering: Atte memeing: Rigo Gutierrez To: Maya Barron Reviewed by Cat Gutierrez RPA on 08/14; All test results are final unless otherwise noted. Varicella-Zoster IgG Antibody [facility] Ordered by Cat Gutierrez RPA on 08/09/2020 Collected: 08/09/2020 Reported: 08/10/2020 17:47 VZV IgG Ser IA-aCnc 242.10 None Note: Index Interpr etation --------- <135.00 Negative - Antibody not detected 135.00 - 164.99 Equivocal > or = 165.00 Positive - Antibody detected A positive result indicates that the patient has antibody to VZV but does not differentiate between an active or past infection. The clinical diagnosis must be interpreted in conjunction with the clinical signs and symptoms of the patient. This assay reliably measures immunity due to previous infection but may not be sensitive enough to detect antibodies induced by vaccination. Thus, a negative result in a vaccinated individual does not necessarily indicate susceptibility to VZV infection. A more sensitive test for vaccination-induced immunity is Varicella Zoster Virus Antibody Immunity Screen, ACIF.THIS TEST WAS PERFORMED AT:[facility] [address]EPFOKU ME RATI,MDResponsible Observer: VARICELLA IGG Varicella-Zoster IgG Antibody [id number] 916.5668 (GTx) NOTES See Note None Note: Patient Street Address: [address] [place] [address] [address]Patient City: [place] State[place] [facility] Zip Code: [address]foldd Reviewed by Cat Gutierrez RPA on 08/12; All test results are final unless otherwise noted. BHCG, QUANTITATIVE [facility] Ordered by Cat Gutierrez RPA on 08/08/2020 Collected: 08/08/2020 Reported: 08/08/2020 11:53 B-HCG SerPl-aCn 47662 MilliInternationalUnitsPerMilliLiter_[Arbitrary_Con (0-10) H (High) Note: @Instrument will autodiluteAPPROXI MATE GESTATION AGE APRROXIMATE HCG RANGE 0-1 WEEK 0 - 50 1-2 WEEKS 40 - 300 2-3 WEEKS 100 - 1,000 3-4 WEEKS 500 - 6,000 1-2 MONTHS 5,000 - 200,000 2-3 MONTHS 10,000 - 100,000 2ND TRIMESTER 3,000 - 50,000 3RD TRIMESTER 1,000 - 50,000Responsible Observer: BHCG,QUANT BHCG, QUANTITATIVE 600.5006 (G) Reviewed by Cat Gutierrez RPA on 08/08; All test results are final unless otherwise noted. Reported Physicians [facility] Ordered by Cat Gutierrez RPA on 08/08/2020 Collected: 08/08/2020 Reported: 08/08/2020 11:54 Reported Physicians See Note None Note: Reported Physicians:Ordering: Jannet barton: Rigo Gutierrez To: Maya Barron Reviewed by Cat Gutierrez RPA on 08/08; All test results are final unless otherwise noted. CBC W AUTO DIFF [facility] Ordered by Cat Gutierrez RPA on 08/01/2020 Collected: 08/01/2020 Reported: 08/01/2020 00:56 MCV BldCo Auto 88.9 FemtoLiter_[SI_Volume_Units] (80-96) N (Normal) Note: Responsible Observer: MCV MCV 100 .0600 (B) RDW RBC Auto 13 percent (11-15) N (Normal) Note: Responsible Observer: RDW RDW 100 .0900 (B) Manual diff Bld NO None Note: Responsible Observer: CBC Manual D ifferential Added 100.1990 (B) PMV Bld 9.7 FemtoLiter_[SI_Volume_Units] (9.1-13.1) N (Normal) Note: Responsible Observer: MPV MPV 100 .1100 (B) Imm Granulocytes Bld Ql Auto See Note (0-2) N (Normal) Note: [id number] Ob server support technician: IG% IG% 100.1375 (B) Hct VFr Bld Auto 40.9 percent (37-47) N (Normal) Note: Responsible Observer: HEMATOCRIT H EMATOCRIT 100.0500 (B) MCHC BldCo-mCnc 33.7 GramsPerDeciLiter_[Mass_Concentration_Units] (33-37) N (Normal) Note: Responsible Observer: MCHC MCHC 1 00.0800 (B) Imm Granulocytes # Bld Auto 0.0 Unit (0-0.1) None Note: Responsible Observer: IG# IG# 100 .1400 (B) Monocytes/leuk NFr Bld Auto 7.2 percent (4-12) N (Normal) Note: Responsible Observer: MONO % MONO % 100.1225 (B) Hgb Bld-sCnc 13.8 GramsPerDeciLiter_[Mass_Concentration_Units] (10.7-15.4) N (Normal) Note: Responsible Observer: HGB HEMOGLOB IN 100.0400 (B) WBC # Bld Auto 7.2 ThousandsPerMicroLiter_[Number_Concentration_Units] (4.45-10 .71) N (Normal) Note: Responsible Observer: WBC WHITE BL OOD COUNT 100.0100 (E) Basophils # Bld Auto 0.0 Unit (0.0-0.2) N (Normal) Note: Responsible Observer: BASO # BASO# 100.1350 (B) Basophils/leuk NFr Bld Auto 0.3 percent (0.4-1.3) L (Low) Note: Responsible Observer: BASO % BASO % 100.1325 (B) Eosinophil # Bld Auto 0.0 Unit (0.0-0.5) N (Normal) Note: Responsible Observer: EOS # EOS# 100.1300 (D) Eosinophil/leuk NFr Bld Auto 0.4 percent (0-7) N (Normal) Note: Responsible Observer: EOS % EOS % 100.1275 (B) Lymphocytes # Bld Auto 2.8 Unit (0.6-4.6) N (Normal) Note: Responsible Observer: LYMPH # LYMP H# 100.1200 (B) Lymphocytes/leuk NFr Bld Auto 38.7 percent (14-46) N (Normal) Note: Responsible Observer: LYMPH % LYMP H % 100.1175 (B) Monocytes # Bld Auto 0.5 Unit (0.2-1.2) N (Normal) Note: Responsible Observer: MONO # MONO# 100.1250 (C) Neutrophils # Bld Auto 3.8 Unit (1.7-7.6) N (Normal) Note: Responsible Observer: NEUT# NEUT# 100.1150 (B) Neutrophils/leuk NFr Bld Auto 53.3 percent (41-77) N (Normal) Note: Responsible Observer: NEUT% NEUT% 100.1125 (B) Platelet # Bld Auto 280 ThousandsPerMicroLiter_[Number_Concentration_Units] (130-472 ) N (Normal) Note: Responsible Observer: PLATELET COU NT PLATELET COUNT 100.1000 (D) MCH RBC Qn Auto 30.0 PicoGram_[SI_Mass_Units] (27-31) N (Normal) Note: Responsible Observer: MCH MCH 100 .0700 (B) RBC # Bld Auto 4.60 MillionsPerMicroLiter_[Number_Concentration_Units] (4.20-5.4 0) N (Normal) Note: Responsible Observer: RBC Red Bloo d Count 100.0300 (B) NUCLEATED RED BLOOD CELL# 0 Unit None Note: Responsible Observer: NRBC# NUCLEA VICTOR M RBC 100.1362 (A) NUCLEATED RED BLOOD CELL 0 percent None Note: Responsible Observer: NRBC% NRBC% 100.1360 (B) Reviewed by Cat Gutierrez RPA on 08/01; All test results are final unless otherwise noted. [facility] Ordered by Cat Gutierrez RPA on 08/01/2020 Collected: 08/01/2020 Reported: 08/01/2020 02:26 ALT SerPl w P-5'-P-cCnc 19 enzyme_unit_per_liter (10-49) N (Normal) Note: Responsible Observer: SGPT/ALT SGP T/ALT 400.1750 (G) Calcium SerPl-mCnc 8.9 MilliGramsPerDeciLiter_[Mass_Concentration_Units] (8.5-10.1) N (Normal) Note: Responsible Observer: Calcium Calc ium 400.2500 (G) Bilirub SerPl-mCnc 0.5 MilliGramsPerDeciLiter_[Mass_Concentration_Units] (0.3-1.2) N (Normal) Note: Responsible Observer: T KELLIE Total Bilirubin 400.2600 (G) CO2 SerPl-sCnc 23 MilliMolesPerLiter_[Substance_Concentration_Units] (20-31) N (Normal) Note: Responsible Observer: CO2 Carbon D ioxide 400.1400 (G) Chloride SerPl-sCnc 105 MilliMolesPerLiter_[Substance_Concentration_Units] (99-109) N (Normal) Note: Responsible Observer: Chloride Chl oride 400.1250 (G) Glucose SerPl-mCnc 85 MilliGramsPerDeciLiter_[Mass_Concentration_Units] (74-106) N (Normal) Note: Responsible Observer: Glucose Gluc ose 400.1500 (G) Potassium SerPl-sCnc 3.5 MilliMolesPerLiter_[Substance_Concentration_Units] (3.5-5.5) N (Normal) Note: Responsible Observer: K Potassium 400.1210 (G) Prot SerPl-mCnc 7.8 GramsPerDeciLiter_[Mass_Concentration_Units] (5.7-8.2) N (Normal) Note: Responsible Observer: TP Total Pro tein 400.2800 (G) Sodium SerPl-sCnc 137 MilliMolesPerLiter_[Substance_Concentration_Units] (132-146) N (Normal) Note: Responsible Observer: Sodium Sodiu m 400.1100 (G) AST SerPl w P-5'-P-cCnc 15 enzyme_unit_per_liter (0-33) N (Normal) Note: Responsible Observer: SGOT / AST S GOT / AST 400.1900 (G) BUN SerPl-mCnc 9 MilliGramsPerDeciLiter_[Mass_Concentration_Units] (9-23) N (Normal) Note: Responsible Observer: BUN Blood Ur ea Nitrogen 400.1000 (G) Anion Gap SerPl-sCnc 13 MilliMolesPerLiter_[Substance_Concentration_Units] (8-16) N (Normal) Note: Responsible Observer: ANION GAP AN ION GAP 400.1402 (E) Albumin SerPl BCP-mCnc 4.1 GramsPerDeciLiter_[Mass_Concentration_Units] (3.2-4.8) N (Normal) Note: Responsible Observer: Albumin Albu min 400.2700 (G) ALP SerPl-cCnc 99 enzyme_unit_per_liter (45-129) N (Normal) Note: Responsible Observer: ALP Alkaline Phosphatase 400.2000 (G) GFR/BSA.pred SerPlBld-ArVRat Greater Than 60 (ABOVE 60) None Note: Responsible Observer: GFR Glomerul ar Filt Rate Calc 400.1605 (D) Creatinine 0.7 MilliGramsPerDeciLiter_[Mass_Concentration_Units] (0.5-1.1) N (Normal) Note: Responsible Observer: Creatinine C reatinine 400.1600 (G) Reviewed by Cat Gutierrez RPA on 08/01; All test results are final unless otherwise noted. Reported Physicians [facility] Ordered by Cat Gutierrez RPA on 08/01/2020 Collected: 08/01/2020 Reported: 08/01/2020 02:26 Reported Physicians See Note None Note: Reported Physicians:Ordering: Aj Ferreiraending: Jos Rivas To: Maya Barron Reviewed by Cat Gutierrez RPA on 08/01; All test results are final unless otherwise noted. Type and Screen [facility] Ordered by Cat Gutierrez RPA on 08/01/2020 Collected: 08/01/2020 Reported: 08/01/2020 06:03 Blood bank studies Yes None Note: Responsible Observer: Prev. Histor y? Previous History? 100.0800 (A) Antibody Screen NEGATIVE None Note: Responsible Observer: Antibody Scr een Antibody Screen 200.0000 (C) Blood Type See Note None Note: OPO PositiveLResponsible Observer: Blood Type Blood Type 110.0950 (C) NOTES See Note None Note: :: YTransfused within 90 d ays?: NPre Op? (IF Yes, give date): N Reviewed by Cat Gutierrez RPA on 08/01; All test results are final unless otherwise noted. Reported Physicians [facility] Ordered by Cat Gutierrez RPA on 08/01/2020 Collected: 08/01/2020 Reported: 08/01/2020 06:03 Reported Physicians See Note None Note: Reported Physicians:Ordering: Aj Ferreiraending: Jos Rivas To: Maya Barron Reviewed by Cat Gutierrez RPA on 08/01; All test results are final unless otherwise noted. BHCG, QUANTITATIVE [facility] Ordered by aCt Gutierrez RPA on 08/01/2020 Collected: 08/01/2020 Reported: 08/01/2020 02:26 B-HCG [facility] [address] MilliInternationalUnitsPerMilliLiter_[Arbitrary_Con (0-10) H (High) Note: @Instrument will autodiluteAPPROXI MATE GESTATION AGE APRROXIMATE HCG RANGE 0-1 WEEK 0 - 50 1-2 WEEKS 40 - 300 2-3 WEEKS 100 - 1,000 3-4 WEEKS 500 - 6,000 1-2 MONTHS 5,000 - 200,000 2-3 MONTHS 10,000 - 100,000 2ND TRIMESTER 3,000 - 50,000 3RD TRIMESTER 1,000 - 50,000Responsible Observer: BHCG,QUANT BHCG, QUANTITATIVE 600.5006 (G) Reviewed by Cat Gutierrez RPA on 08/01; All test results are final unless otherwise noted. Reported Physicians [facility] Ordered by Cat Gutierrez [facility] on 08/01/2020 Collected: 08/01/2020 Reported: 08/01/2020 02:26 Reported Physicians See Note None Note: Reported Physicians:Ordering: Aj Ferreiraending: Jos Rivas To: Maya Barron Reviewed by Cat Gutierrez [facility] on 08/01; All test results are final unless otherwise noted. ADD ON MICROSCOPIC [facility] Ordered by Cat Gutierrez [facility] on 08/01/2020 Collected: 08/01/2020 Reported: 08/01/2020 01:01 ADD ON MICROSCOPIC See Note (0-5) None Note: NOTES OTHER/NOT INTERPRETED Bacteria UrnS Ql Micro MODERATE AMOUNT Bacteria UrnS Ql Micro MODERATE AMOUNT Bacteria UrnS Ql Micro L Bacteria UrnS Ql Micro Bacteria UrnS Ql Micro Bacteria UrnS Ql Micro Bacteria UrnS Ql Micro [id number] Bacteria UrnS Ql Micro Bacteria UrnS Ql Micro MODERATE AMOUNT Cells UrnS Micro Cells UrnS Micro FEW Cells UrnS Micro FEW Cells UrnS Micro FEW Cells UrnS Micro L Cells UrnS Micro Cells UrnS Micro Cells UrnS Micro Cells UrnS Micro RBC # Ur Manual OCCASIONAL WBC # Ur Manual OCCASIONAL A Culture has been added to this specimen per established criteriaReason for ordering culture: Abnormal findings UA@08/01/20 0048: UA W/ MICRO added. RFLXG = UMIC CIF.Method of Collection:: VoidedResponsible Observer: RBC RBC 300.4900 (A) Reviewed by Cat Gutierrez RPA on 08/01; All test results are final unless otherwise noted. Reported Physicians [facility] Ordered by Cat Gutierrez RPA on 08/01/2020 Collected: 08/01/2020 Reported: 08/01/2020 01:01 Reported Physicians See Note None Note: Reported Physicians:Ordering: Aj Ferreiraending: Jos Rivas To: Maya Barron Reviewed by Cat Gutierrez RPA on 08/01; All test results are final unless otherwise noted. UA W/ CULTURE IF ABNORMAL [facility] Ordered by Cat Gutierrez RPA on 08/01/2020 Collected: 08/01/2020 Reported: 08/01/2020 01:01 Urobilinogen Ur Ql See Note (0.2-1 EU/dl) None Note: 0.2 EU/dl0.2 EU/[id number] E U/dlResponsible Observer: UROBILINOGEN UROBILINOGEN 300.4500 (C) RBC # Ur Strip SMALL (NEGATIVE) None Note: @DO MICRO!!!!Responsible Observer: BLOOD BLOOD 300.4652 (C) Prot Ur Ql Strip See Note (NEGATIVE) None Note: [id number] EResponsible Observer: PROTEIN PROTEIN 300.3750 (C) Ketones Ur Ql Strip See Note (NEGATIVE) None Note: 15 mg/dL15 mg/[id number] mg/d LResponsible Observer: KETONE KETONE 300.3900 (C) Bilirub Ur Ql Strip.auto See Note (NEGATIVE) None Note: [id number] EResponsible Observer: BILIRUBIN BILIRUBIN 300.4550 (C) Glucose Ur Strip.auto-mCnc NEGATIVE (NEGATIVE) None Note: Responsible Observer: GLUCOSE GLUC OSE 300.3850 (C) Appearance Ur See Note (CLEAR) None Note: CLEARCLEARLCLEARResponsible Observ er: APPEARANCE APPEARANCE 300.3400 (A) Color Ur See Note None Note: YELLOWYELLOWLYELLOWResponsible Obs erver: COLOR COLOR 300.3330 (A) Leukocyte esterase Ur Ql Strip See Note (NEGATIVE) None Note: [id number]@DO MICR O!!!!A Culture has been added to this specimen per established criteriaResponsible Observer: LEUKOCYTES LEUKOCYTES 300.3576 (C) Nitrite Ur Ql Strip See Note (NEGATIVE) None Note: [id number] EResponsible Observer: NITRITE NITRITE 300.3652 (B) pH Ur Strip 7.0 (5-8) None Note: Responsible Observer: PH PH 300.3 450 (C) Sp Gr Ur Refractometry 1.014 (1.005-1.030) None Note: Responsible Observer: SP GRAVITY U RINE SPECIFIC GRAVITY-MAN 300.3475 (C) URINE MICROSCOPIC? (CIF) Microscopic Added None Note: Responsible Observer: UA URINE SHAWN ROSCOPIC PENDING 300.4665 (D) NOTES See Note None Note: Reason for ordering culture: Abnor mal findings UA@08/01/20 0048: UA W/ MICRO added. RFLXG = UMIC CIF.Method of Collection:: Voided Reviewed by Cat Gutierrez [facility] on 08/02; All test results are final unless otherwise noted. Urine culture [facility] Ordered by Cat Gutierrez [facility] on 08/01/2020 Collected: 08/01/2020 Reported: 08/02/2020 07:41 Urine culture result See Note None Note: Greater than 100,000 CFU/MLLactoba cilli no senst done NOTES See Note None Note: @08/01/20 0101: Urine culture adde d. RFLXG = CULT.ADD. Reviewed by Cat Gutierrez [facility] on 08/02; All test results are final unless otherwise noted. Reported Physicians [facility] Ordered by Cat Gutierrez [facility] on 08/01/2020 Collected: 08/01/2020 Reported: 08/02/2020 07:41 Reported Physicians See Note None Note: Reported Physicians:Ordering: Aj Ferreiraending: Jos Rivas To: Maya Barron Reviewed by Cat Gutierrez [facility] on 08/02; All test results are final unless otherwise noted. BHCG, QUANTITATIVE [facility] Ordered by Cat Gutierrez RPA on 07/31/2020 Collected: 07/31/2020 Reported: 07/31/2020 16:53 B-HCG [facility] [address] MilliInternationalUnitsPerMilliLiter_[Arbitrary_Con (0-10) H (High) Note: @Instrument will autodiluteAPPROXI MATE GESTATION AGE APRROXIMATE HCG RANGE 0-1 WEEK 0 - 50 1-2 WEEKS 40 - 300 2-3 WEEKS 100 - 1,000 3-4 WEEKS 500 - 6,000 1-2 MONTHS 5,000 - 200,000 2-3 MONTHS 10,000 - 100,000 2ND TRIMESTER 3,000 - 50,000 3RD TRIMESTER 1,000 - 50,000Responsible Observer: BHCG,QUANT BHCG, QUANTITATIVE 600.5006 (G) NOTES See Note None Note: OTHER NAME IN SYSTEM IS FILIBERTO Reviewed by Cat Gutierrez RPA on 08/01; All test results are final unless otherwise noted. Reported Physicians [facility] Ordered by Cat Gutierrez RPA on 07/31/2020 Collected: 07/31/2020 Reported: 07/31/2020 16:53 Reported Physicians See Note None Note: Reported Physicians:Ordering: Jannet barton: Cat Gutierrez Reviewed by Cat Gutierrez RPA on 08/01; All test results are final unless otherwise noted. UA W/ CULTURE IF ABNORMAL [facility] Ordered by Cat Gutierrez RPA on 07/27/2020 Collected: 07/27/2020 Reported: 07/27/2020 21:36 Urobilinogen Ur Ql See Note (0.2-1 EU/dl) None Note: 0.2 EU/dl0.2 EU/[id number] E U/dlResponsible Observer: UROBILINOGEN UROBILINOGEN 300.4500 (C) RBC # Ur Strip NEGATIVE (NEGATIVE) None Note: Responsible Observer: BLOOD BLOOD 300.4652 (C) Prot Ur Ql Strip See Note (NEGATIVE) None Note: [id number] EResponsible Observer: PROTEIN PROTEIN 300.3750 (C) Ketones Ur Ql Strip See Note (NEGATIVE) None Note: [id number] EResponsible Observer: KETONE KETONE 300.3900 (C) Bilirub Ur Ql Strip.auto See Note (NEGATIVE) None Note: [id number] EResponsible Observer: BILIRUBIN BILIRUBIN 300.4550 (C) Glucose Ur Strip.auto-mCnc NEGATIVE (NEGATIVE) None Note: Responsible Observer: GLUCOSE GLUC OSE 300.3850 (C) Appearance Ur See Note (CLEAR) None Note: CLEARCLEARLCLEARResponsible Observ er: APPEARANCE APPEARANCE 300.3400 (A) Color Ur See Note None Note: YELLOWYELLOWLYELLOWResponsible Obs erver: COLOR COLOR 300.3330 (A) Leukocyte esterase Ur Ql Strip See Note (NEGATIVE) None Note: [id number]@DO MICR O!!!!A Culture has been added to this specimen per established criteriaResponsible Observer: LEUKOCYTES LEUKOCYTES 300.3576 (C) Nitrite Ur Ql Strip See Note (NEGATIVE) None Note: [id number] EResponsible Observer: NITRITE NITRITE 300.3652 (B) pH Ur Strip 7.5 (5-8) None Note: Responsible Observer: PH PH 300.3 450 (C) Sp Gr Ur Refractometry 1.008 (1.005-1.030) None Note: Responsible Observer: SP GRAVITY U RINE SPECIFIC GRAVITY-MAN 300.3475 (C) URINE MICROSCOPIC? (CIF) Microscopic Added None Note: Responsible Observer: UA URINE SHAWN ROSCOPIC PENDING 300.4665 (D) NOTES See Note None Note: Reason for ordering culture: Abnor mal findings UA@07/27/202117: UA W/ MICRO added. RFLXG = UMIC CIF.Method of Collection:: Voided Reviewed by Cat Gutierrez RPA on 07/31; All test results are final unless otherwise noted. Urine culture [facility] Ordered by Cat Gutierrez RPA on 07/27/2020 Collected: 07/27/2020 Reported: 07/29/2020 07:36 Urine culture result 50,000 CFU/ML Lactobacilli no senst done None NOTES See Note None Note: @07/27/202136: Urine culture adde d. RFLXG = CULT.ADD. Reviewed by Cat Gutierrez RPA on 07/31; All test results are final unless otherwise noted. Reported Physicians [facility] Ordered by Cat Gutierrez RPA on 07/27/2020 Collected: 07/27/2020 Reported: 07/29/2020 07:37 Reported Physicians See Note None Note: Reported Physicians:Ordering: Carmina BustamanteisalAttending: Carmina GoodisalCopy To: Maya Barron Reviewed by Cat Gutierrez RPA on 07/31; All test results are final unless otherwise noted. ADD ON MICROSCOPIC [facility] Ordered by Cat Gutierrez [facility] on 07/27/2020 Collected: 07/27/2020 Reported: 07/27/2020 21:36 ADD ON MICROSCOPIC See Note (0-5) None Note: NOTES OTHER/NOT INTERPRETED Bacteria UrnS Ql Micro SMALL AMOUNT Bacteria UrnS Ql Micro SMALL AMOUNT Bacteria UrnS Ql Micro L Bacteria UrnS Ql Micro Bacteria UrnS Ql Micro Bacteria UrnS Ql Micro Bacteria UrnS Ql Micro [id number] Bacteria UrnS Ql Micro Bacteria UrnS Ql Micro SMALL AMOUNT Cells UrnS Micro MODERATE Cells UrnS Micro MODERATE Cells UrnS Micro MODERATE Cells UrnS Micro L Cells UrnS Micro Cells UrnS Micro Cells UrnS Micro Cells UrnS Micro Cells UrnS Micro WBC # Ur Manual OCCASIONAL Reason for ordering culture: Abnormal findings UA@07/27/202117: UA W/ MICRO added. RFLXG = UMIC CIF.Method of Collection:: VoidedResponsible Observer: WBC WBC 300.5005 (A) Reviewed by Cat Gutierrez RPA on 07/28; All test results are final unless otherwise noted. Reported Physicians [facility] Ordered by Cat Gutierrez RPA on 07/27/2020 Collected: 07/27/2020 Reported: 07/27/2020 21:37 Reported Physicians See Note None Note: Reported Physicians:Ordering: Carmina BustamanteisalAttending: Carmina GoodisalCopyifan To: Maya Barron Reviewed by Cat Gutierrez RPA on 07/28; All test results are final unless otherwise noted. [facility] Ordered by Cat Gutierrez RPA on 07/27/2020 Collected: 07/27/2020 Reported: 07/27/2020 20:36 ALT SerPl w P-5'-P-cCnc 18 enzyme_unit_per_liter (10-49) N (Normal) Note: Responsible Observer: SGPT/ALT SGP T/ALT 400.1750 (G) Calcium SerPl-mCnc 8.7 MilliGramsPerDeciLiter_[Mass_Concentration_Units] (8.5-10.1) N (Normal) Note: Responsible Observer: Calcium Calc ium 400.2500 (G) Bilirub SerPl-mCnc 0.6 MilliGramsPerDeciLiter_[Mass_Concentration_Units] (0.3-1.2) N (Normal) Note: Responsible Observer: T KELLIE Total Bilirubin 400.2600 (G) CO2 SerPl-sCnc 26 MilliMolesPerLiter_[Substance_Concentration_Units] (20-31) N (Normal) Note: Responsible Observer: CO2 Carbon D ioxide 400.1400 (G) Chloride SerPl-sCnc 109 MilliMolesPerLiter_[Substance_Concentration_Units] (99-109) N (Normal) Note: Responsible Observer: Chloride Chl oride 400.1250 (G) Glucose SerPl-mCnc 82 MilliGramsPerDeciLiter_[Mass_Concentration_Units] (74-106) N (Normal) Note: Responsible Observer: Glucose Gluc ose 400.1500 (G) Potassium SerPl-sCnc 3.4 MilliMolesPerLiter_[Substance_Concentration_Units] (3.5-5.5) L (Low) Note: Responsible Observer: K Potassium 400.1210 (G) Prot SerPl-mCnc 7.1 GramsPerDeciLiter_[Mass_Concentration_Units] (5.7-8.2) N (Normal) Note: Responsible Observer: TP Total Pro tein 400.2800 (G) Sodium SerPl-sCnc 140 MilliMolesPerLiter_[Substance_Concentration_Units] (132-146) N (Normal) Note: Responsible Observer: Sodium Sodiu m 400.1100 (G) AST SerPl w P-5'-P-cCnc 8 enzyme_unit_per_liter (0-33) N (Normal) Note: Responsible Observer: SGOT / AST S GOT / AST 400.1900 (G) BUN SerPl-mCnc 8 MilliGramsPerDeciLiter_[Mass_Concentration_Units] (9-23) L (Low) Note: Responsible Observer: BUN Blood Ur ea Nitrogen 400.1000 (G) Anion Gap SerPl-sCnc 8 MilliMolesPerLiter_[Substance_Concentration_Units] (8-16) N (Normal) Note: Responsible Observer: ANION GAP AN ION GAP 400.1402 (E) Albumin SerPl BCP-mCnc 3.6 GramsPerDeciLiter_[Mass_Concentration_Units] (3.2-4.8) N (Normal) Note: Responsible Observer: Albumin Albu min 400.2700 (G) ALP SerPl-cCnc 89 enzyme_unit_per_liter (45-129) N (Normal) Note: Responsible Observer: ALP Alkaline Phosphatase 400.2000 (G) GFR/BSA.pred SerPlBld-ArVRat Greater Than 60 (ABOVE 60) None Note: Responsible Observer: GFR Glomerul ar Filt Rate Calc 400.1605 (D) Creatinine 0.7 MilliGramsPerDeciLiter_[Mass_Concentration_Units] (0.5-1.1) N (Normal) Note: Responsible Observer: Creatinine C reatinine 400.1600 (G) Reviewed by Cat Gutierrez RPA on 07/28; All test results are final unless otherwise noted. Reported Physicians [facility] Ordered by Cat Gutierrez RPA on 07/27/2020 Collected: 07/27/2020 Reported: 07/27/2020 20:37 Reported Physicians See Note None Note: Reported Physicians:Ordering: Daquan BustamanteAttending: Ariella Good To: Maay Barron Reviewed by Cat Gutierrez RPA on 07/28; All test results are final unless otherwise noted. Type and Screen [facility] Ordered by Cat Gutierrez RPA on 07/27/2020 Collected: 07/27/2020 Reported: 07/27/2020 20:48 Blood bank studies Yes None Note: Responsible Observer: Prev. Histor y? Previous History? 100.0800 (A) Antibody Screen NEGATIVE None Note: Responsible Observer: Antibody Scr een Antibody Screen 200.0000 (C) Blood Type See Note None Note: OPO PositiveLResponsible Observer: Blood Type Blood Type 110.0950 (C) NOTES See Note None Note: :: YTransfused within 90 d ays?: NPre Op? (IF Yes, give date): N Reviewed by Cat Gutierrez RPA on 07/28; All test results are final unless otherwise noted. Reported Physicians [facility] Ordered by Cat Gutierrez RPA on 07/27/2020 Collected: 07/27/2020 Reported: 07/27/2020 20:48 Reported Physicians See Note None Note: Reported Physicians:Ordering: Daquan uBstamanteAttending: Daquan GoodCopyifan To: Maya Barron Reviewed by Cat Gutierrez RPA on 07/28; All test results are final unless otherwise noted. CBC W AUTO DIFF [facility] Ordered by Cat Gutierrez RPA on 07/27/2020 Collected: 07/27/2020 Reported: 07/27/2020 20:10 MCV BldCo Auto 89.1 FemtoLiter_[SI_Volume_Units] (80-96) N (Normal) Note: Responsible Observer: MCV MCV 100 .0600 (B) RDW RBC Auto 12 percent (11-15) N (Normal) Note: Responsible Observer: RDW RDW 100 .0900 (B) Manual diff Bld NO None Note: Responsible Observer: CBC Manual D ifferential Added 100.1990 (B) PMV Bld 9.9 FemtoLiter_[SI_Volume_Units] (9.1-13.1) N (Normal) Note: Responsible Observer: MPV MPV 100 .1100 (B) Imm Granulocytes Bld Ql Auto See Note (0-2) N (Normal) Note: [id number] Ob server support technician: IG% IG% 100.1375 (B) Hct VFr Bld Auto 40.0 percent (37-47) N (Normal) Note: Responsible Observer: HEMATOCRIT H EMATOCRIT 100.0500 (B) MCHC BldCo-mCnc 33.8 GramsPerDeciLiter_[Mass_Concentration_Units] (33-37) N (Normal) Note: Responsible Observer: MCHC MCHC 1 00.0800 (B) Imm Granulocytes # Bld Auto 0.0 Unit (0-0.1) None Note: Responsible Observer: IG# IG# 100 .1400 (B) Monocytes/leuk NFr Bld Auto 9.6 percent (4-12) N (Normal) Note: Responsible Observer: MONO % MONO % 100.1225 (B) Hgb Bld-sCnc 13.5 GramsPerDeciLiter_[Mass_Concentration_Units] (10.7-15.4) N (Normal) Note: Responsible Observer: HGB HEMOGLOB IN 100.0400 (B) WBC # Bld Auto 5.5 ThousandsPerMicroLiter_[Number_Concentration_Units] (4.45-10 .71) N (Normal) Note: Responsible Observer: WBC WHITE BL OOD COUNT 100.0100 (E) Basophils # Bld Auto 0.0 Unit (0.0-0.2) N (Normal) Note: Responsible Observer: BASO # BASO# 100.1350 (B) Basophils/leuk NFr Bld Auto 0.4 percent (0.4-1.3) N (Normal) Note: Responsible Observer: BASO % BASO % 100.1325 (B) Eosinophil # Bld Auto 0.0 Unit (0.0-0.5) N (Normal) Note: Responsible Observer: EOS # EOS# 100.1300 (D) Eosinophil/leuk NFr Bld Auto 0.7 percent (0-7) N (Normal) Note: Responsible Observer: EOS % EOS % 100.1275 (B) Lymphocytes # Bld Auto 2.0 Unit (0.6-4.6) N (Normal) Note: Responsible Observer: LYMPH # LYMP H# 100.1200 (B) Lymphocytes/leuk NFr Bld Auto 36.9 percent (14-46) N (Normal) Note: Responsible Observer: LYMPH % LYMP H % 100.1175 (B) Monocytes # Bld Auto 0.5 Unit (0.2-1.2) N (Normal) Note: Responsible Observer: MONO # MONO# 100.1250 (C) Neutrophils # Bld Auto 2.9 Unit (1.7-7.6) N (Normal) Note: Responsible Observer: NEUT# NEUT# 100.1150 (B) Neutrophils/leuk NFr Bld Auto 52.2 percent (41-77) N (Normal) Note: Responsible Observer: NEUT% NEUT% 100.1125 (B) Platelet # Bld Auto 270 ThousandsPerMicroLiter_[Number_Concentration_Units] (130-472 ) N (Normal) Note: Responsible Observer: PLATELET COU NT PLATELET COUNT 100.1000 (D) MCH RBC Qn Auto 30.1 PicoGram_[SI_Mass_Units] (27-31) N (Normal) Note: Responsible Observer: MCH MCH 100 .0700 (B) RBC # Bld Auto 4.49 MillionsPerMicroLiter_[Number_Concentration_Units] (4.20-5.4 0) N (Normal) Note: Responsible Observer: RBC Red Bloo d Count 100.0300 (B) NUCLEATED RED BLOOD CELL# 0 Unit None Note: Responsible Observer: NRBC# NUCLEA VICTOR M RBC 100.1362 (A) NUCLEATED RED BLOOD CELL 0 percent None Note: Responsible Observer: NRBC% NRBC% 100.1360 (B) Reviewed by Cat Gutierrez RPA on 07/28; All test results are final unless otherwise noted. Rep[facility] [facility] Ordered by Cat Gutierrez RPA on 07/27/2020 Collected: 07/27/2020 Reported: 07/27/2020 20:11 Reported Physicians See Note None Note: Reported Physicians:Ordering: Daquan BustamanteAttending: Daquan GoodCopyifan To: Maya Barron Reviewed by Cat Gutierrez RPA on 07/28; All test results are final unless otherwise noted. BHCG, QUANTITATIVE [facility] Ordered by Cat Gutierrez RPA on 07/27/2020 Collected: 07/27/2020 Reported: 07/27/2020 22:08 B-HCG SerPl-aCnc 6210 MilliInternationalUnitsPerMilliLiter_[Arbitrary_Con (0-10) H (High) Note: @Instrument will autodiluteAPPROXI MATE GESTATION AGE APRROXIMATE HCG RANGE 0-1 WEEK 0 - 50 1-2 WEEKS 40 - 300 2-3 WEEKS 100 - 1,000 3-4 WEEKS 500 - 6,000 1-2 MONTHS 5,000 - 200,000 2-3 MONTHS 10,000 - 100,000 2ND TRIMESTER 3,000 - 50,000 3RD TRIMESTER 1,000 - 50,000Responsible Observer: BHCG,QUANT BHCG, QUANTITATIVE 600.5006 (G) Reviewed by Cat Gutierrez RPA on 07/28; All test results are final unless otherwise noted. Reported Physicians [facility] Ordered by Cat Gutierrez RPA on 07/27/2020 Collected: 07/27/2020 Reported: 07/27/2020 22:08 Reported Physicians See Note None Note: Reported Physicians:Ordering: Daquan BustamanteAttending: Daquan GoodCopyifan To: Maya Barron Reviewed by Cat Gutierrez RPA on 07/28; All test results are final unless otherwise noted. BHCG, QUANTITATIVE [facility] Ordered by Maya Barron MD on 07/26/2020 Collected: 07/26/2020 Reported: 07/26/2020 16:48 B-HCG [facility] 4155 MilliInternationalUnitsPerMilliLiter_[Arbitrary_Con (0-10) H (High) Note: @Instrument will autodiluteAPPROXI MATE GESTATION AGE APRROXIMATE HCG RANGE 0-1 WEEK 0 - 50 1-2 WEEKS 40 - 300 2-3 WEEKS 100 - 1,000 3-4 WEEKS 500 - 6,000 1-2 MONTHS 5,000 - 200,000 2-3 MONTHS 10,000 - 100,000 2ND TRIMESTER 3,000 - 50,000 3RD TRIMESTER 1,000 - 50,000Responsible Observer: BHCG,QUANT BHCG, QUANTITATIVE 600.5006 (G) NOTES See Note None Note: OTHER NAME IN SYSTEM IS PICKARD Reviewed by Maya Barron MD on 07/27; All test results are final unless otherwise noted. Reported Physicians [facility] Ordered by Maya Barron MD on 07/26/2020 Collected: 07/26/2020 Reported: 07/26/2020 16:48 Reported Physicians See Note None Note: Reported Physicians:Ordering: Maya AlvarengaAttending: Maya Barron Reviewed by Maya Barron MD on 07/27; All test results are final unless otherwise noted. Sweta Raquel SARS/FLU [facility] Ordered by Bandar Cleveland PA-C on 07/25/2020 Collected: 07/25/2020 Reported: 07/25/2020 18:47 Sweta Raquel SARS/FLU See Note None Note: Sweta Raquel is a rapid, automated q ualitative anddifferentiation of Influenza type A,B and TBYD-XYX-3HXOF-RT-PCR testNORMAL VALUE IS "NOT DETECTED".Limitations of the sweta raquel Influenza A/B & PUSB-VAY-1azjlg method.Modifications to manufacturers recommendation and proceduresmay alter performance of the test.Negative results do not preclude Influenza A,B or SARS- MDA9wvuylfuyrj and should not be used as the sole basis fortreatment or other management decisions. Results from theCobas Raquel Influenza A/B & COV2 should be interpeted inconjunction with other laboratory and clinical dataavailable to the clinician.False negative results may occur if a specimen is improperlycollected, transported or handled. False negatives may occurif inadequate numbers of organisms are present in thespecimen.This test has not been evaluated for patients without signsand systoms of influenza and SARS-COV-2 infection.This assay has not been evaluated for patients receivingintranasal administered influenza vaccine.This assay has not been evaluated for immunocompromisedindividuals.This test cannot rule out diseases caused by other bacterialor viral pathogens.[id number] RNA Resp Ql ТАТЬЯНА+probeLNNOSNo O rganisms [id number] Organisms Detected Reviewed by Bandar Cleveland PA-C on 1; All test results are final unless otherwise noted. Reported Physicians [facility] Ordered by Bandar Cleveland PA-C on 07/25/2020 Collected: 07/25/2020 Reported: 07/25/2020 18:47 Reported Physicians See Note None Note: Reported Physicians:Ordering: Connie Wilsonttending: Kami Cleveland To: Health, Public Reviewed by Bandar Cleveland PA-C on ; All test results are final unless otherwise noted. Extended hours FLU/COV2 NAAT [facility] Ordered by Bandar Cleveland PA-C on 07/25/2020 Collected: 07/25/2020 Reported: 07/25/2020 18:47 Extended hours FLU/COV2 NAAT See Note None Note: TNPNo Reportable ResultLTNPNo Repo rtable KtmwrzT3BVV Reviewed by Bandar Cleveland PA-C on ; All test results are final unless otherwise noted. Reported Physicians [facility] Ordered by Bandar Cleveland PA-C on 07/25/2020 Collected: 07/25/2020 Reported: 07/25/2020 18:47 Reported Physicians See Note None Note: Reported Physicians:Ordering: Janice Wilsonending: Kami Cleveland To: Health, Public Reviewed by Bandar Cleveland PA-C on ; All test results are final unless otherwise noted. CBC W AUTO DIFF [facility] Ordered by Maya Barron MD on 07/22/2020 Collected: 07/22/2020 Reported: 07/22/2020 01:14 MCV BldCo Auto 88.6 FemtoLiter_[SI_Volume_Units] (80-96) N (Normal) Note: Responsible Observer: MCV MCV 100 .0600 (B) RDW RBC Auto 13 percent (11-15) N (Normal) Note: Responsible Observer: RDW RDW 100 .0900 (B) Manual diff Bld NO None Note: Responsible Observer: CBC Manual D ifferential Added 100.1990 (B) PMV Bld 9.9 FemtoLiter_[SI_Volume_Units] (9.1-13.1) N (Normal) Note: Responsible Observer: MPV MPV 100 .1100 (B) Imm Granulocytes Bld Ql Auto See Note (0-2) N (Normal) Note: [id number] Ob server support technician: IG% IG% 100.1375 (B) Hct VFr Bld Auto 41.2 percent (37-47) N (Normal) Note: Responsible Observer: HEMATOCRIT H EMATOCRIT 100.0500 (B) MCHC BldCo-mCnc 33.5 GramsPerDeciLiter_[Mass_Concentration_Units] (33-37) N (Normal) Note: Responsible Observer: MCHC MCHC 1 00.0800 (B) Imm Granulocytes # Bld Auto 0.0 Unit (0-0.1) None Note: Responsible Observer: IG# IG# 100 .1400 (B) Monocytes/leuk NFr Bld Auto 11.7 percent (4-12) N (Normal) Note: Responsible Observer: MONO % MONO % 100.1225 (B) Hgb Bld-sCnc 13.8 GramsPerDeciLiter_[Mass_Concentration_Units] (10.7-15.4) N (Normal) Note: Responsible Observer: HGB HEMOGLOB IN 100.0400 (B) WBC # Bld Auto 7.2 ThousandsPerMicroLiter_[Number_Concentration_Units] (4.45-10 .71) N (Normal) Note: Responsible Observer: WBC WHITE BL OOD COUNT 100.0100 (E) Basophils # Bld Auto 0.0 Unit (0.0-0.2) N (Normal) Note: Responsible Observer: BASO # BASO# 100.1350 (B) Basophils/leuk NFr Bld Auto 0.4 percent (0.4-1.3) N (Normal) Note: Responsible Observer: BASO % BASO % 100.1325 (B) Eosinophil # Bld Auto 0.1 Unit (0.0-0.5) N (Normal) Note: Responsible Observer: EOS # EOS# 100.1300 (D) Eosinophil/leuk NFr Bld Auto 1.4 percent (0-7) N (Normal) Note: Responsible Observer: EOS % EOS % 100.1275 (B) Lymphocytes # Bld Auto 2.8 Unit (0.6-4.6) N (Normal) Note: Responsible Observer: LYMPH # LYMP H# 100.1200 (B) Lymphocytes/leuk NFr Bld Auto 38.6 percent (14-46) N (Normal) Note: Responsible Observer: LYMPH % LYMP H % 100.1175 (B) Monocytes # Bld Auto 0.8 Unit (0.2-1.2) N (Normal) Note: Responsible Observer: MONO # MONO# 100.1250 (C) Neutrophils # Bld Auto 3.4 Unit (1.7-7.6) N (Normal) Note: Responsible Observer: NEUT# NEUT# 100.1150 (B) Neutrophils/leuk NFr Bld Auto 47.6 percent (41-77) N (Normal) Note: Responsible Observer: NEUT% NEUT% 100.1125 (B) Platelet # Bld Auto 276 ThousandsPerMicroLiter_[Number_Concentration_Units] (130-472 ) N (Normal) Note: Responsible Observer: PLATELET COU NT PLATELET COUNT 100.1000 (D) MCH RBC Qn Auto 29.7 PicoGram_[SI_Mass_Units] (27-31) N (Normal) Note: Responsible Observer: MCH MCH 100 .0700 (B) RBC # Bld Auto 4.65 MillionsPerMicroLiter_[Number_Concentration_Units] (4.20-5.4 0) N (Normal) Note: Responsible Observer: RBC Red Bloo d Count 100.0300 (B) NUCLEATED RED BLOOD CELL# 0 Unit None Note: Responsible Observer: NRBC# NUCLEA VICTOR M RBC 100.1362 (A) NUCLEATED RED BLOOD CELL 0 percent None Note: Responsible Observer: NRBC% NRBC% 100.1360 (B) Reviewed by Maya Barron MD on 07/24; All test results are final unless otherwise noted. [facility] Ordered by Maya Barron MD on 07/22/2020 Collected: 07/22/2020 Reported: 07/22/2020 02:00 Calcium SerPl-mCnc 8.5 MilliGramsPerDeciLiter_[Mass_Concentration_Units] (8.5-10.1) N (Normal) Note: Responsible Observer: Calcium Calc ium 400.2500 (G) CO2 SerPl-sCnc 25 MilliMolesPerLiter_[Substance_Concentration_Units] (20-31) N (Normal) Note: Responsible Observer: CO2 Carbon D ioxide 400.1400 (G) Chloride SerPl-sCnc 111 MilliMolesPerLiter_[Substance_Concentration_Units] (99-109) H (High) Note: Responsible Observer: Chloride Chl oride 400.1250 (G) Glucose SerPl-mCnc 89 MilliGramsPerDeciLiter_[Mass_Concentration_Units] (74-106) N (Normal) Note: Responsible Observer: Glucose Gluc ose 400.1500 (G) Potassium SerPl-sCnc 3.6 MilliMolesPerLiter_[Substance_Concentration_Units] (3.5-5.5) N (Normal) Note: Responsible Observer: K Potassium 400.1210 (G) Sodium SerPl-sCnc 142 MilliMolesPerLiter_[Substance_Concentration_Units] (132-146) N (Normal) Note: Responsible Observer: Sodium Sodiu m 400.1100 (G) BUN SerPl-mCnc 11 MilliGramsPerDeciLiter_[Mass_Concentration_Units] (9-23) N (Normal) Note: Responsible Observer: BUN Blood Ur ea Nitrogen 400.1000 (G) Anion Gap SerPl-sCnc 10 MilliMolesPerLiter_[Substance_Concentration_Units] (8-16) N (Normal) Note: Responsible Observer: ANION GAP AN ION GAP 400.1402 (E) GFR/BSA.pred SerPlBld-ArVRat Greater Than 60 (ABOVE 60) None Note: Responsible Observer: GFR Glomerul ar Filt Rate Calc 400.1605 (D) Creatinine 0.8 MilliGramsPerDeciLiter_[Mass_Concentration_Units] (0.5-1.1) N (Normal) Note: Responsible Observer: Creatinine C reatinine 400.1600 (G) Reviewed by Maya Barron MD on 07/24; All test results are final unless otherwise noted. Reported Physicians [facility] Ordered by Maya Barron MD on 07/22/2020 Collected: 07/22/2020 Reported: 07/22/2020 02:00 Reported Physicians See Note None Note: Reported Physicians:Ordering: Hong LandaverdeAttending: Alon Douglas To: Maya Barron Reviewed by Maya Barron MD on 07/24; All test results are final unless otherwise noted. Sweta Raquel SARS/FLU [facility] Ordered by Maya Barron MD on 07/22/2020 Collected: 07/22/2020 Reported: 07/22/2020 01:29 Sweta Raquel SARS/FLU See Note None Note: Sweta Raquel is a rapid, automated q ualitative anddifferentiation of Influenza type A,B and DOEO-NIF-5WWBA-RT-PCR testNORMAL VALUE IS "NOT DETECTED".Limitations of the sweta raquel Influenza A/B & KPIL-IYI-0clxqi method.Modifications to manufacturers recommendation and proceduresmay alter performance of the test.Negative results do not preclude Influenza A,B or SARS- YSF5qgmmqnoyva and should not be used as the sole basis fortreatment or other management decisions. Results from theCobas Raquel Influenza A/B & COV2 should be interpeted inconjunction with other laboratory and clinical dataavailable to the clinician.False negative results may occur if a specimen is improperlycollected, transported or handled. False negatives may occurif inadequate numbers of organisms are present in thespecimen.This test has not been evaluated for patients without signsand systoms of influenza and SARS-COV-2 infection.This assay has not been evaluated for patients receivingintranasal administered influenza vaccine.This assay has not been evaluated for immunocompromisedindividuals.This test cannot rule out diseases caused by other bacterialor viral pathogens.[id number]-MuN-7 RNA Resp Ql ТАТЬЯНА+probeLNNOSNo O rganisms [id number] Organisms Detected Reviewed by Maya Barron MD on 07/24; All test results are final unless otherwise noted. Reported Physicians [facility] Ordered by Maya Barron MD on 07/22/2020 Collected: 07/22/2020 Reported: 07/22/2020 01:29 Reported Physicians See Note None Note: Reported Physicians:Ordering: Hong LandaverdeAttending: Alon Douglas To: Maya Barron Reviewed by Maya Barron MD on 07/24; All test results are final unless otherwise noted. UA W/ CULTURE IF ABNORMAL [facility] Ordered by Maya Barron MD on 07/22/2020 Collected: 07/22/2020 Reported: 07/22/2020 01:10 Urobilinogen Ur Ql See Note (0.2-1 EU/dl) None Note: 0.2 EU/dl0.2 EU/[id number] E U/dlResponsible Observer: UROBILINOGEN UROBILINOGEN 300.4500 (C) RBC # Ur Strip NEGATIVE (NEGATIVE) None Note: Responsible Observer: BLOOD BLOOD 300.4652 (C) Prot Ur Ql Strip See Note (NEGATIVE) None Note: [id number] EResponsible Observer: PROTEIN PROTEIN 300.3750 (C) Ketones Ur Ql Strip See Note (NEGATIVE) None Note: [id number] EResponsible Observer: KETONE KETONE 300.3900 (C) Bilirub Ur Ql Strip.auto See Note (NEGATIVE) None Note: [id number] EResponsible Observer: BILIRUBIN BILIRUBIN 300.4550 (C) Glucose Ur Strip.auto-mCnc NEGATIVE (NEGATIVE) None Note: Responsible Observer: GLUCOSE GLUC OSE 300.3850 (C) Appearance Ur See Note (CLEAR) None Note: CLEARCLEARLCLEARResponsible Observ er: APPEARANCE APPEARANCE 300.3400 (A) Color Ur See Note None Note: YELLOWYELLOWLYELLOWResponsible Obs erver: COLOR COLOR 300.3330 (A) Leukocyte esterase Ur Ql Strip See Note (NEGATIVE) None Note: [id number] EResponsible Observer: LEUKOCYTES LEUKOCYTES 300.3576 (C) Nitrite Ur Ql Strip See Note (NEGATIVE) None Note: [id number] EResponsible Observer: NITRITE NITRITE 300.3652 (B) pH Ur Strip 6.5 (5-8) None Note: Responsible Observer: PH PH 300.3 450 (C) Sp Gr Ur Refractometry 1.023 (1.005-1.030) None Note: Responsible Observer: SP GRAVITY U RINE SPECIFIC GRAVITY-MAN 300.3475 (C) URINE MICROSCOPIC? (CIF) NO None Note: Responsible Observer: UA URINE SHAWN ROSCOPIC PENDING 300.4665 (D) NOTES See Note None Note: Reason for ordering culture: Abnor mal findings UAMethod of Collection:: Voided Reviewed by Maya Barron MD on 07/24; All test results are final unless otherwise noted. Reported Physicians [facility] Ordered by Maya Barron MD on 07/22/2020 Collected: 07/22/2020 Reported: 07/22/2020 01:11 Reported Physicians See Note None Note: Reported Physicians:Ordering: Hong LandaverdeAttending: Alon Douglas To: Maya Barron Reviewed by Maya Barron MD on 07/24; All test results are final unless otherwise noted. Extended hours FLU/COV2 NAAT [facility] Ordered by Maya Barron MD on 07/22/2020 Collected: 07/22/2020 Reported: 07/22/2020 01:29 Extended hours FLU/COV2 NAAT See Note None Note: TNPNo Reportable ResultLTNPNo Repo rtable TockuqG5YBI Reviewed by Maya Barron MD on 07/24; All test results are final unless otherwise noted. Reported Physicians [facility] Ordered by Maya Barron MD on 07/22/2020 Collected: 07/22/2020 Reported: 07/22/2020 01:29 Reported Physicians See Note None Note: Reported Physicians:Ordering: Hnog LandaverdeAttending: Alon Douglas To: Maya Barron Reviewed by Maya Barron MD on 07/24; All test results are final unless otherwise noted. Urine culture [facility] Ordered by Maya Barron MD on 07/19/2020 Collected: 07/19/2020 Reported: 07/21/2020 07:48 Bacteria Ur Cult See Note None Note: NGNo growth.L1NG Reviewed by Maya Barron MD on 07/21; All test results are final unless otherwise noted. Reported Physicians [facility] Ordered by Maya Barron MD on 07/19/2020 Collected: 07/19/2020 Reported: 07/21/2020 07:49 Reported Physicians See Note None Note: Reported Physicians:Ordering: Maya AlvarengaAttending: Maya Barron Reviewed by Maya Barron MD on 07/21; All test results are final unless otherwise noted. BHCG, QUANTITATIVE [facility] Ordered by Maya Barron MD on 07/17/2020 Collected: 07/17/2020 Reported: 07/17/2020 12:40 B-HCG SerPl-aCnc 104 MilliInternationalUnitsPerMilliLiter_[Arbitrary_Con (0-10) H (High) Note: APPROXIMATE GESTATION AGE APRROXIMATE HCG RANGE 0-1 WEEK 0 - 50 1-2 WEEKS 40 - 300 2-3 WEEKS 100 - 1,000 3-4 WEEKS 500 - 6,000 1-2 MONTHS 5,000 - 200,000 2-3 MONTHS 10,000 - 100,000 2ND TRIMESTER 3,000 - 50,000 3RD TRIMESTER 1,000 - 50,000Responsible Observer: BHCG,QUANT BHCG, QUANTITATIVE 600.5006 (G) Reviewed by Maya Barron MD on 07/17; All test results are final unless otherwise noted. Reported Physicians [facility] Ordered by Maya Barron MD on 07/17/2020 Collected: 07/17/2020 Reported: 07/17/2020 12:40 Reported Physicians See Note None Note: Reported Physicians:Ordering: Maya AlvarengaAttending: Maya Barron Reviewed by Maya Barron MD on 07/17; All test results are final unless otherwise noted. [employer] COVID-19 SCHOOL [facility] Ordered by Maya Barron MD on 05/31/2020 Collected: 05/31/2020 Reported: 05/31/2020 07:08 [employer] COVID-19 SCHOOL See Note None Note: [employer] COVID-19 IS AN ISOTHER MAL ТАТЬЯНА TECHNOLOGYNORMAL VALUE IS "SARS-COV-2 COVID 19 NOT DETECTED"False negative results may occur if a specimen is improperlycollected,transported or handled.False negative results may also occur if amplicationinhibitors are present in the specimen or if inadequatelevels of viruses are present in the specimen.As with any molecular test, if the virus mutates in [facility] region, Covid-19 may not be detected or may bedetected less predictably.ID NOW COVID-19 is intended for testing a swab directlywithout elution in viral transport media as dilution willresult in decreased detection of low positive samples thatare near the limit of detection of the test.SWAB SAMPLES ELUTED IN VTM ARE NOT APPROPRIATE FOR USE INTHIS TEST.NOSNo Organisms [id number] Organisms Detected Reviewed by Maya Barron MD on 05/31; All test results are final unless otherwise noted. Reported Physicians [facility] Ordered by Maya Barron MD on 05/31/2020 Collected: 05/31/2020 Reported: 05/31/2020 07:08 Reported Physicians See Note None Note: Reported Physicians:Ordering: Johnny HernándezAttending: Suzanne Cazares To: Maya Barron Reviewed by Maya Barron MD on 05/31; All test results are final unless otherwise noted. BHCG, QUANTITATIVE [facility] Ordered by Maya Barron MD on 05/26/2020 Collected: 05/26/2020 Reported: 05/26/2020 14:49 [facility] [address] MilliInternationalUnitsPerMilliLiter_[Arbitrary_Con (0-10) H (High) Note: @Instrument will autodiluteAPPROXI MATE GESTATION AGE APRROXIMATE HCG RANGE 0-1 WEEK 0 - 50 1-2 WEEKS 40 - 300 2-3 WEEKS 100 - 1,000 3-4 WEEKS 500 - 6,000 1-2 MONTHS 5,000 - 200,000 2-3 MONTHS 10,000 - 100,000 2ND TRIMESTER 3,000 - 50,000 3RD TRIMESTER 1,000 - 50,000Responsible Observer: BHCG,QUANT BHCG, QUANTITATIVE 600.5006 (G) Reviewed by Maya Barron MD on 05/26; All test results are final unless otherwise noted. Reported Physicians [facility] Ordered by Maya Barron MD on 05/26/2020 Collected: 05/26/2020 Reported: 05/26/2020 14:50 Reported Physicians See Note None Note: Reported Physicians:Ordering: Maya AlvarengaAttending: Maya Barron Reviewed by Maya Barron MD on 05/26; All test results are final unless otherwise noted. URINALYSIS [facility] Ordered by Maya Barron MD on 05/23/2020 Collected: 05/23/2020 Reported: 05/23/2020 17:19 Urobilinogen Ur Ql See Note (0.2-1 EU/dl) None Note: 0.2 EU/dl0.2 EU/[id number] E U/dlResponsible Observer: UROBILINOGEN UROBILINOGEN 300.4500 (C) RBC # Ur Strip NEGATIVE (NEGATIVE) None Note: Responsible Observer: BLOOD BLOOD 300.4650 (C) Prot Ur Ql Strip See Note (NEGATIVE) None Note: [id number] EResponsible Observer: PROTEIN PROTEIN 300.3750 (C) Ketones Ur Ql Strip See Note (NEGATIVE) None Note: [id number] EResponsible Observer: KETONE KETONE 300.3900 (C) Bilirub Ur Ql Strip.auto See Note (NEGATIVE) None Note: [id number] EResponsible Observer: BILIRUBIN BILIRUBIN 300.4550 (C) Glucose Ur Strip.auto-mCnc NEGATIVE (NEGATIVE) None Note: Responsible Observer: GLUCOSE GLUC OSE 300.3850 (C) Appearance Ur See Note (CLEAR) None Note: CLEARCLEARLCLEARResponsible Observ er: APPEARANCE APPEARANCE 300.3400 (A) Color Ur See Note None Note: YELLOWYELLOWLYELLOWResponsible Obs erver: COLOR COLOR 300.3300 (A) Leukocyte esterase Ur Ql Strip See Note (NEGATIVE) None Note: [id number] EResponsible Observer: LEUKOCYTES LEUKOCYTES 300.3575 (C) Nitrite Ur Ql Strip See Note (NEGATIVE) None Note: [id number] EResponsible Observer: NITRITE NITRITE 300.3650 (B) pH Ur Strip 6.5 (5-8) None Note: Responsible Observer: PH PH 300.3 450 (C) Sp Gr Ur Refractometry 1.002 (1.005-1.030) None Note: Responsible Observer: SP GRAVITY U RINE SPECIFIC GRAVITY-MAN 300.3475 (C) URINE MICROSCOPIC ADDED NO None Note: Responsible Observer: UA URINE SHAWN ROSCOPIC PENDING 300.4660 (D) NOTES See Note None Note: Method of Collection:: Clean Catch Reviewed by Maya Barron MD on 05/29; All test results are final unless otherwise noted. Urine culture [facility] Ordered by Maya Barron MD on 05/23/2020 Collected: 05/23/2020 Reported: 05/24/2020 09:24 Bacteria Ur Cult See Note None Note: NGNo growth.L1NG Reviewed by Maya Barron MD on 05/29; All test results are final unless otherwise noted. MEDMATCH [facility] Ordered by Maya Barron MD on 05/23/2020 Collected: 05/23/2020 Reported: 05/26/2020 17:09 MEDMATCH 1.000 (> or = 1.003) None Note: Responsible Observer: MEDMATCH MED MATCH 623.57591 (GTx) Reviewed by Maya Barron MD on 05/29; All test results are final unless otherwise noted. Reported Physicians [facility] Ordered by Maya Barron MD on 05/23/2020 Collected: 05/23/2020 Reported: 05/26/2020 17:09 Reported Physicians See Note None Note: Reported Physicians:Ordering: Maya AlvarengaAttending: Maya Barron Reviewed by Maya Barron MD on 05/29; All test results are final unless otherwise noted. Varicella-Zoster IgG Antibody [facility] Ordered by Maya Barron MD on 05/23/2020 Collected: 05/23/2020 Reported: 05/25/2020 17:11 VZV IgG Ser IA-aCnc 244.10 None Note: Index Interpr etation --------- <135.00 Negative - Antibody not detected 135.00 - 164.99 Equivocal > or = 165.00 Positive - Antibody detected A positive result indicates that the patient has antibody to VZV but does not differentiate between an active or past infection. The clinical diagnosis must be interpreted in conjunction with the clinical signs and symptoms of the patient. This assay reliably measures immunity due to previous infection but may not be sensitive enough to detect antibodies induced by vaccination. Thus, a negative result in a vaccinated individual does not necessarily indicate susceptibility to VZV infection. A more sensitive test for vaccination-induced immunity is Varicella Zoster Virus Antibody Immunity Screen, ACIF.THIS TEST WAS PERFORMED AT:[facility] [employer] [facility] [id number] ME RATI,MDResponsible Observer: VARICELLA IGG Varicella-Zoster IgG Antibody [id number] 062.5263 (GTx) NOTES See Note None Note: Patient Street Address: [facility] [address] City: [facility] [place]: [address] Reviewed by Maya Barron MD on 05/26; All test results are final unless otherwise noted. Reported Physicians [facility] Ordered by Maya Barron MD on 05/23/2020 Collected: 05/23/2020 Reported: 05/25/2020 17:11 Reported Physicians See Note None Note: Reported Physicians:Ordering: Maya AlvarengaAttending: Maya Barron Reviewed by Maya Barron MD on 05/26; All test results are final unless otherwise noted. CBC [facility] Ordered by Maya Barron MD on 05/23/2020 Collected: 05/23/2020 Reported: 05/23/2020 17:10 MCV BldCo Auto 88.3 FemtoLiter_[SI_Volume_Units] (80-96) N (Normal) Note: Responsible Observer: MCV MCV 100 .0600 (B) RDW RBC Auto 13 percent (11-15) N (Normal) Note: Responsible Observer: RDW RDW 100 .0900 (B) Manual diff Bld NO None Note: Responsible Observer: CBC Manual D ifferential Added 100.1996 (A) PMV Bld 10.1 FemtoLiter_[SI_Volume_Units] (9.1-13.1) N (Normal) Note: Responsible Observer: MPV MPV 100 .1100 (B) Imm Granulocytes Bld Ql Auto See Note (0-2) N (Normal) Note: [id number] Ob server support technician: IG% IG% 100.1375 (B) Hct VFr Bld Auto 39.2 percent (37-47) N (Normal) Note: Responsible Observer: HEMATOCRIT H EMATOCRIT 100.0500 (B) MCHC BldCo-mCnc 33.2 GramsPerDeciLiter_[Mass_Concentration_Units] (33-37) N (Normal) Note: Responsible Observer: MCHC MCHC 1 00.0800 (B) Imm Granulocytes # Bld Auto 0.0 Unit (0-0.1) None Note: Responsible Observer: IG# IG# 100 .1400 (B) Monocytes/leuk NFr Bld Auto 9.4 percent (4-12) N (Normal) Note: Responsible Observer: MONO % MONO % 100.1225 (B) Hgb Bld-sCnc 13.0 GramsPerDeciLiter_[Mass_Concentration_Units] (10.7-15.4) N (Normal) Note: Responsible Observer: HGB HEMOGLOB IN 100.0400 (B) WBC # Bld Auto 5.6 ThousandsPerMicroLiter_[Number_Concentration_Units] (4.45-10 .71) N (Normal) Note: Responsible Observer: WBC WHITE BL OOD COUNT 100.0100 (E) Basophils # Bld Auto 0.0 Unit (0.0-0.2) N (Normal) Note: Responsible Observer: BASO # BASO# 100.1350 (B) Basophils/leuk NFr Bld Auto 0.4 percent (0.4-1.3) N (Normal) Note: Responsible Observer: BASO % BASO % 100.1325 (B) Eosinophil # Bld Auto 0.1 Unit (0.0-0.5) N (Normal) Note: Responsible Observer: EOS # EOS# 100.1300 (D) Eosinophil/leuk NFr Bld Auto 1.4 percent (0-7) N (Normal) Note: Responsible Observer: EOS % EOS % 100.1275 (B) Lymphocytes # Bld Auto 2.2 Unit (0.6-4.6) N (Normal) Note: Responsible Observer: LYMPH # LYMP H# 100.1200 (B) Lymphocytes/leuk NFr Bld Auto 39.4 percent (14-46) N (Normal) Note: Responsible Observer: LYMPH % LYMP H % 100.1175 (B) Monocytes # Bld Auto 0.5 Unit (0.2-1.2) N (Normal) Note: Responsible Observer: MONO # MONO# 100.1250 (C) Neutrophils # Bld Auto 2.8 Unit (1.7-7.6) N (Normal) Note: Responsible Observer: NEUT# NEUT# 100.1150 (B) Neutrophils/leuk NFr Bld Auto 49.2 percent (41-77) N (Normal) Note: Responsible Observer: NEUT% NEUT% 100.1125 (B) Platelet # Bld Auto 237 ThousandsPerMicroLiter_[Number_Concentration_Units] (130-472 ) N (Normal) Note: Responsible Observer: PLATELET COU NT PLATELET COUNT 100.1000 (D) MCH RBC Qn Auto 29.3 PicoGram_[SI_Mass_Units] (27-31) N (Normal) Note: Responsible Observer: MCH MCH 100 .0700 (B) RBC # Bld Auto 4.44 MillionsPerMicroLiter_[Number_Concentration_Units] (4.20-5.4 0) N (Normal) Note: Responsible Observer: RBC Red Bloo d Count 100.0300 (B) NUCLEATED RED BLOOD CELL# 0 Unit None Note: Responsible Observer: NRBC# NUCLEA VICTOR M RBC 100.1362 (A) NUCLEATED RED BLOOD CELL 0 percent None Note: Responsible Observer: NRBC% NRBC% 100.1360 (B) Reviewed by Maya Barron MD on 05/29; All test results are final unless otherwise noted. TSH [facility] Ordered by Maya Barron MD on 05/23/2020 Collected: 05/23/2020 Reported: 05/23/2020 18:38 TSH SerPl DL<=0.005 mIU/L-aCnc 1.87 MicroInternationalUnitsPerMilliLiter_[Arbitrary_Con (0.35-5. 50) N (Normal) Note: Responsible Observer: TSH TSH 600 .7055 (D) Reviewed by Maya Barron MD on 05/29; All test results are final unless otherwise noted. Lead (Venous) Wh.Bld [facility] Ordered by Maya Barron MD on 05/23/2020 Collected: 05/23/2020 Reported: 05/25/2020 17:11 Lead Bld-sCnc <1 (<5) None Note: See Note 1Note 1This test was faith granados and its analytical performancecharacteristics have been determined by [employer]. It has not been cleared or approved by theA. This assay has been validated pursuant to the CLIAregulations and is used for clinical purposes.THIS TEST WAS PERFORMED AT:[facility] [id number] ONEILLesponsible Observer: Lead, WB Lead, Whole Blood [id number] 911.7630 ([facility]) NOTES See Note None Note: Patient Street Address: [address] [facility] [place]: [place]: [address] Reviewed by Maya Barron MD on 05/29; All test results are final unless otherwise noted. ncPN REF [facility] Ordered by Maya Barron MD on 05/23/2020 Collected: 05/23/2020 Reported: 05/27/2020 20:54 T pallidum Ab Ser Ql Aggl See Note (Nonreactive) None Note: [id number] onreactiveResponsible Observer: TP-PA Treponema pallidum Ab (TP-PA) [id number] 908.0286 ([facility]) HIV1 RNA SerPl Ql ТАТЬЯНА+probe See Note None Note: TNPNo Reportable ResultLTNPNo Repo rtable ResultLLEP.LIVENTNPResponsible Observer: HIV 1 RNA, QL T HIV 1 RNA, QL TMA [id number] 908.0254 ([facility]) HBV surface Ag SerPl Ql IA See Note (NON-REACTIVE) None Note: IBR-LNAHETLGOWG-[id number] 0NON-REACTIVEResponsible Observer: HBSAG Hepatitis B Surface Antigen [id number] 910.2005 ([facility]) RUBV IgG SerPl IA-aCnc 1.80 None Note: Index Interpretatio n ----- <0.90 Not consistent with Immunity 0.90-0.99 Equivocal > or = 1.00 Consistent with ImmunityThe presence of rubella IgG antibody suggestsimmunization or past or current infection withrubella virus.THIS TEST WAS PERFORMED AT:[facility] [address]HOCLGK MERATI,MDResponsible Observer: Rubella IgG Ab Rubella IgG Ab [id number] 911.2840 ([facility]) HIV1 Ab SerPlBld Ql IA.rapid See Note None Note: TNPNo Reportable ResultLTNPNo Repo rtable ResultLLEP.LIVENTNPResponsible Observer: HIV 1 AB HIV 1 AB [id number] 908.0250 ([facility]) HBsAg Confirmation See Note None Note: TNPNo Reportable ResultLTNPNo Repo rtable ResultLLEP.LIVENTNPResponsible Observer: HBsAg Confirm HBsAg Confirmation [id number] 910.2006 ([facility]) HIV (1&2) Screen, 4th Gen NON-REACTIVE (NON-REACTIVE) None Note: HIV-1 antigen and HIV-1/HIV-2 anti bodies were notdetected. There is no laboratory evidence of HIVinfection.PLEASE NOTE: This information has been disclosed toyou from records whose confidentiality may beprotected by state law. If your state requires suchprotection, then the state law prohibits you frommaking any further disclosure of the informationwithout the specific written consent of the personto whom it pertains, or as otherwise permitted by law.A general authorization for the release of medical orother information is NOT sufficient for this purpose.For additional information please refer tohttp://education.Telx/faq/HCA321(This link is being provided for informational/educational purposes only.)The performance of this assay has not been clinicallyvalidated in patients less than 2 years old.Responsible Observer: HIV ABS HIV (1&2) Screen, 4th Gen [id number] 908.0228 ([facility]) Reviewed by Maya Barron MD on 05/29; All test results are final unless otherwise noted. Reported Physicians [facility] Ordered by Maya Barron MD on 05/23/2020 Collected: 05/23/2020 Reported: 05/27/2020 20:54 Reported Physicians See Note None Note: Reported Physicians:Ordering: Maya AlvarengaAttending: Maay Barron Reviewed by Maya Barron MD on 05/29; All test results are final unless otherwise noted. HCV RFX ТАТЬЯНА [facility] Ordered by Maya Barron MD on 05/23/2020 Collected: 05/23/2020 Reported: 05/25/2020 17:11 HCV Ab Ser Ql See Note (NON-REACTIVE) None Note: [id number] 7NON-REACTIVEResponsible Observer: HEP C ANTIBODY Hepatitis C Antibody [id number] 914.8305 ([facility]) HCV RNA Qualitative (ТАТЬЯНА) 0.59 (<1.00) None Note: HCV antibody was non-reactive. The re is no laboratoryevidence of HCV infection.In most cases, no further action is required. However,if recent HCV exposure is suspected, a test for HCV RNA(test code 11176) is suggested.For additional information please refer tohttp://education.[employer]/faq/ACQ45p8(This link is being provided for informational/educational purposes only.)THIS TEST WAS PERFORMED AT:[facility] [address]KAJUANCHO MEANS,MDResponsible Observer: SIG TO C/O SIGNAL TO CUTOFF [id number] 302.3844 ([facility]) NOTES See Note None Note: Patient Street Address: [address]Patient City: [place] [facility] Zip Code: [address] Reviewed by Maya Barron MD on 05/26; All test results are final unless otherwise noted. Reported Physicians [facility] Ordered by Maya Barron MD on 05/23/2020 Collected: 05/23/2020 Reported: 05/25/2020 17:11 Reported Physicians See Note None Note: Reported Physicians:Ordering: Maya AlvarengaAttending: Maya Barron Reviewed by Maya Barron MD on 05/26; All test results are final unless otherwise noted. Type and Screen [facility] Ordered by Maya Barron MD on 05/23/2020 Collected: 05/23/2020 Reported: 05/23/2020 19:32 Blood bank studies Yes None Note: Responsible Observer: Prev. Histor y? Previous History? 100.0800 (A) Antibody Screen (PN) NEGATIVE None Note: Responsible Observer: Antibody Scr een Antibody Screen (PN) 200.0002 (C) Blood Type See Note None Note: OPO PositiveLResponsible Observer: Blood Type Blood Type 110.0950 (C) Reviewed by Maya Barron MD on 05/24; All test results are final unless otherwise noted. Reported Physicians [facility] Ordered by Maya Barron MD on 05/23/2020 Collected: 05/23/2020 Reported: 05/23/2020 19:32 Reported Physicians See Note None Note: Reported Physicians:Ordering: Bia Alvarenga: Maya Barron Reviewed by Maya Barron MD on 05/24; All test results are final unless otherwise noted. PROGESTERONE [facility] Ordered by Maya Barron MD on 04/27/2020 Collected: 04/27/2020 Reported: 04/27/2020 15:57 Progest SerPl-mCnc 17.5 NanoGramsPerMilliLiter_[Mass_Concentration_Units] None Note: Normal Ranges (ng/ml)Fe males: Follicular Phase 0.21 - 1.40 Luteal Phase 3.34 - 25.56 Mid-Luteal 4.44 - 28.03 Postmenopausal < 0.73 Females: 1st Trimester 11.22 - 90.00 2nd Trimester 25.55 - 89.40 3rd Trimester 48.40 - 422.50Males: 0.28 - 1.22Responsible Observer: Progesterone Progesterone 500.3125 (B) NOTES See Note None Note: ADD ON Reviewed by Maya Barron MD on 04/30; All test results are final unless otherwise noted. Reported Physicians [facility] Ordered by Maya Barron MD on 04/27/2020 Collected: 04/27/2020 Reported: 04/27/2020 15:58 Reported Physicians See Note None Note: Reported Physicians:Ordering: Johnny Hernándezending: Cristino CastellanosCopyifan To: Rubén Barron To: Cristino Castellanos Reviewed by Maya Barron MD on 04/30; All test results are final unless otherwise noted. BHCG, QUANTITATIVE [facility] Ordered by Maya Barron MD on 04/27/2020 Collected: 04/27/2020 Reported: 04/27/2020 14:40 B-HCG SerPl-aCnc 2353 MilliInternationalUnitsPerMilliLiter_[Arbitrary_Con (0-10) H (High) Note: @Instrument will autodiluteAPPROXI MATE GESTATION AGE APRROXIMATE HCG RANGE 0-1 WEEK 0 - 50 1-2 WEEKS 40 - 300 2-3 WEEKS 100 - 1,000 3-4 WEEKS 500 - 6,000 1-2 MONTHS 5,000 - 200,000 2-3 MONTHS 10,000 - 100,000 2ND TRIMESTER 3,000 - 50,000 3RD TRIMESTER 1,000 - 50,000Responsible Observer: BHCG,QUANT BHCG, QUANTITATIVE 600.5006 (G) Reviewed by Maya Barron MD on 04/30; All test results are final unless otherwise noted. Reported Physicians [facility] Ordered by Maya Barron MD on 04/27/2020 Collected: 04/27/2020 Reported: 04/27/2020 14:40 Reported Physicians See Note None Note: Reported Physicians:Ordering: Aj Snowending: Cristino CastellanosCopyifan To: Suzanne Cazares To: Maya Barron Reviewed by Maya Barron MD on 04/30; All test results are final unless otherwise noted. CBC W AUTO DIFF [facility] Ordered by Maya Barron MD on 04/25/2020 Collected: 04/25/2020 Reported: 04/25/2020 21:34 MCV BldCo Auto 88.0 FemtoLiter_[SI_Volume_Units] (80-96) N (Normal) Note: Responsible Observer: MCV MCV 100 .0600 (B) RDW RBC Auto 13 percent (11-15) N (Normal) Note: Responsible Observer: RDW RDW 100 .0900 (B) Manual diff Bld NO None Note: Responsible Observer: CBC Manual D ifferential Added 100.1990 (B) PMV Bld 9.8 FemtoLiter_[SI_Volume_Units] (9.1-13.1) N (Normal) Note: Responsible Observer: MPV MPV 100 .1100 (B) Imm Granulocytes Bld Ql Auto See Note (0-2) N (Normal) Note: [id number] Ob server support technician: IG% IG% 100.1375 (B) Hct VFr Bld Auto 38.9 percent (37-47) N (Normal) Note: Responsible Observer: HEMATOCRIT H EMATOCRIT 100.0500 (B) MCHC BldCo-mCnc 32.9 GramsPerDeciLiter_[Mass_Concentration_Units] (33-37) L (Low) Note: Responsible Observer: MCHC MCHC 1 00.0800 (B) Imm Granulocytes # Bld Auto 0.0 Unit (0-0.1) None Note: Responsible Observer: IG# IG# 100 .1400 (B) Monocytes/leuk NFr Bld Auto 9.6 percent (4-12) N (Normal) Note: Responsible Observer: MONO % MONO % 100.1225 (B) Hgb Bld-sCnc 12.8 GramsPerDeciLiter_[Mass_Concentration_Units] (10.7-15.4) N (Normal) Note: Responsible Observer: HGB HEMOGLOB IN 100.0400 (B) WBC # Bld Auto 4.6 ThousandsPerMicroLiter_[Number_Concentration_Units] (4.45-10 .71) N (Normal) Note: Responsible Observer: WBC WHITE BL OOD COUNT 100.0100 (E) Basophils # Bld Auto 0.0 Unit (0.0-0.2) N (Normal) Note: Responsible Observer: BASO # BASO# 100.1350 (B) Basophils/leuk NFr Bld Auto 0.2 percent (0.4-1.3) L (Low) Note: Responsible Observer: BASO % BASO % 100.1325 (B) Eosinophil # Bld Auto 0.0 Unit (0.0-0.5) N (Normal) Note: Responsible Observer: EOS # EOS# 100.1300 (D) Eosinophil/leuk NFr Bld Auto 0.2 percent (0-7) N (Normal) Note: Responsible Observer: EOS % EOS % 100.1275 (B) Lymphocytes # Bld Auto 1.0 Unit (0.6-4.6) N (Normal) Note: Responsible Observer: LYMPH # LYMP H# 100.1200 (B) Lymphocytes/leuk NFr Bld Auto 22.6 percent (14-46) N (Normal) Note: Responsible Observer: LYMPH % LYMP H % 100.1175 (B) Monocytes # Bld Auto 0.4 Unit (0.2-1.2) N (Normal) Note: Responsible Observer: MONO # MONO# 100.1250 (C) Neutrophils # Bld Auto 3.1 Unit (1.7-7.6) N (Normal) Note: Responsible Observer: NEUT# NEUT# 100.1150 (B) Neutrophils/leuk NFr Bld Auto 67.2 percent (41-77) N (Normal) Note: Responsible Observer: NEUT% NEUT% 100.1125 (B) Platelet # Bld Auto 242 ThousandsPerMicroLiter_[Number_Concentration_Units] (130-472 ) N (Normal) Note: Responsible Observer: PLATELET COU NT PLATELET COUNT 100.1000 (D) MCH RBC Qn Auto 29.0 PicoGram_[SI_Mass_Units] (27-31) N (Normal) Note: Responsible Observer: MCH MCH 100 .0700 (B) RBC # Bld Auto 4.42 MillionsPerMicroLiter_[Number_Concentration_Units] (4.20-5.4 0) N (Normal) Note: Responsible Observer: RBC Red Bloo d Count 100.0300 (B) NUCLEATED RED BLOOD CELL# 0 Unit None Note: Responsible Observer: NRBC# NUCLEA VICTOR M RBC 100.1362 (A) NUCLEATED RED BLOOD CELL 0 percent None Note: Responsible Observer: NRBC% NRBC% 100.1360 (B) Reviewed by Maya Barron MD on 04/26; All test results are final unless otherwise noted. [facility] Ordered by Maya Barron MD on 04/25/2020 Collected: 04/25/2020 Reported: 04/25/2020 22:11 ALT SerPl w P-5'-P-cCnc 20 enzyme_unit_per_liter (10-49) N (Normal) Note: Responsible Observer: SGPT/ALT SGP T/ALT 400.1750 (G) Calcium SerPl-mCnc 8.5 MilliGramsPerDeciLiter_[Mass_Concentration_Units] (8.5-10.1) N (Normal) Note: Responsible Observer: Calcium Calc ium 400.2500 (G) Bilirub SerPl-mCnc 0.5 MilliGramsPerDeciLiter_[Mass_Concentration_Units] (0.3-1.2) N (Normal) Note: Responsible Observer: T KELLIE Total Bilirubin 400.2600 (G) CO2 SerPl-sCnc 26 MilliMolesPerLiter_[Substance_Concentration_Units] (20-31) N (Normal) Note: Responsible Observer: CO2 Carbon D ioxide 400.1400 (G) Chloride SerPl-sCnc 107 MilliMolesPerLiter_[Substance_Concentration_Units] (99-109) N (Normal) Note: Responsible Observer: Chloride Chl oride 400.1250 (G) Glucose SerPl-mCnc 87 MilliGramsPerDeciLiter_[Mass_Concentration_Units] (74-106) N (Normal) Note: Responsible Observer: Glucose Gluc ose 400.1500 (G) Potassium SerPl-sCnc 4.0 MilliMolesPerLiter_[Substance_Concentration_Units] (3.5-5.5) N (Normal) Note: Responsible Observer: K Potassium 400.1210 (G) Prot SerPl-mCnc 7.7 GramsPerDeciLiter_[Mass_Concentration_Units] (5.7-8.2) N (Normal) Note: Responsible Observer: TP Total Pro tein 400.2800 (G) Sodium SerPl-sCnc 139 MilliMolesPerLiter_[Substance_Concentration_Units] (132-146) N (Normal) Note: Responsible Observer: Sodium Sodiu m 400.1100 (G) AST SerPl w P-5'-P-cCnc 11 enzyme_unit_per_liter (0-33) N (Normal) Note: Responsible Observer: SGOT / AST S GOT / AST 400.1900 (G) BUN SerPl-mCnc 7 MilliGramsPerDeciLiter_[Mass_Concentration_Units] (9-23) L (Low) Note: Responsible Observer: BUN Blood Ur ea Nitrogen 400.1000 (G) Anion Gap SerPl-sCnc 10 MilliMolesPerLiter_[Substance_Concentration_Units] (8-16) N (Normal) Note: Responsible Observer: ANION GAP AN ION GAP 400.1402 (E) Albumin SerPl BCP-mCnc 3.9 GramsPerDeciLiter_[Mass_Concentration_Units] (3.2-4.8) N (Normal) Note: Responsible Observer: Albumin Albu min 400.2700 (G) ALP SerPl-cCnc 105 enzyme_unit_per_liter (45-129) N (Normal) Note: Responsible Observer: ALP Alkaline Phosphatase 400.2000 (G) GFR/BSA.pred SerPlBld-ArVRat Greater Than 60 (ABOVE 60) None Note: Responsible Observer: GFR Glomerul ar Filt Rate Calc 400.1605 (D) Creatinine 0.7 MilliGramsPerDeciLiter_[Mass_Concentration_Units] (0.5-1.1) N (Normal) Note: Responsible Observer: Creatinine C reatinine 400.1600 (G) Reviewed by Maya Barron MD on 04/26; All test results are final unless otherwise noted. Reported Physicians [facility] Ordered by Maya Barron MD on 04/25/2020 Collected: 04/25/2020 Reported: 04/25/2020 22:11 Reported Physicians See Note None Note: Reported Physicians:Ordering: Cristino FerreiraAttending: Jos Rivas To: Maya Barron Reviewed by Maya Barron MD on 04/26; All test results are final unless otherwise noted. BHCG, QUANTITATIVE [facility] Ordered by Maya Barron MD on 04/25/2020 Collected: 04/25/2020 Reported: 04/25/2020 22:11 B-HCG SerPl-aCnc 1758 MilliInternationalUnitsPerMilliLiter_[Arbitrary_Con (0-10) H (High) Note: @Instrument will autodiluteAPPROXI MATE GESTATION AGE APRROXIMATE HCG RANGE 0-1 WEEK 0 - 50 1-2 WEEKS 40 - 300 2-3 WEEKS 100 - 1,000 3-4 WEEKS 500 - 6,000 1-2 MONTHS 5,000 - 200,000 2-3 MONTHS 10,000 - 100,000 2ND TRIMESTER 3,000 - 50,000 3RD TRIMESTER 1,000 - 50,000Responsible Observer: BHCG,QUANT BHCG, QUANTITATIVE 600.5006 (G) Reviewed by Maya Barron MD on 04/26; All test results are final unless otherwise noted. Reported Physicians [facility] Ordered by Maya Barron MD on 04/25/2020 Collected: 04/25/2020 Reported: 04/25/2020 22:11 Reported Physicians See Note None Note: Reported Physicians:Ordering: Cristino FerreiraAttending: Jos Rivas To: Maya Barron Reviewed by Maya Barron MD on 04/26; All test results are final unless otherwise noted. Urine culture [facility] Ordered by Maya Barron MD on 04/25/2020 Collected: 04/25/2020 Reported: 04/27/2020 04:50 Bacteria Ur Cult See Note None Note: NGNo growth.L1NG NOTES See Note None Note: @ NICOLE DATE was changed from 04/26 to 04/25/20@ by POMCY. Reviewed by Maya Barron MD on 04/30; All test results are final unless otherwise noted. Reported Physicians [facility] Ordered by Maya Barron MD on 04/25/2020 Collected: 04/25/2020 Reported: 04/27/2020 04:51 Reported Physicians See Note None Note: Reported Physicians:Ordering: Cristino FerreiraAttending: Jos Rivas To: Maya Barron Reviewed by Maya Barron MD on 04/30; All test results are final unless otherwise noted. ADD ON MICROSCOPIC [facility] Ordered by Maya Barron MD on 04/25/2020 Collected: 04/25/2020 Reported: 04/25/2020 21:54 ADD ON MICROSCOPIC See Note (0-5) None Note: NOTES OTHER/NOT INTERPRETED Bacteria UrnS Ql Micro SMALL AMOUNT Bacteria UrnS Ql Micro SMALL AMOUNT Bacteria UrnS Ql Micro L Bacteria UrnS Ql Micro Bacteria UrnS Ql Micro Bacteria UrnS Ql Micro Bacteria UrnS Ql Micro [id number] Bacteria UrnS Ql Micro Bacteria UrnS Ql Micro SMALL AMOUNT Cells UrnS Micro FEW Cells UrnS Micro FEW Cells UrnS Micro FEW Cells UrnS Micro L Cells UrnS Micro Cells UrnS Micro Cells UrnS Micro Cells UrnS Micro Cells UrnS Micro WBC # Ur Manual OCCASIONAL @04/25/20 2150: UA W/ MICRO added. RFLXG = UMIC.Method of Collection:: VoidedResponsible Observer: WBC WBC 300.5000 (A) Reviewed by Maya Barron MD on 04/26; All test results are final unless otherwise noted. Reported Physicians [facility] Ordered by Maya Barron MD on 04/25/2020 Collected: 04/25/2020 Reported: 04/25/2020 21:54 Reported Physicians See Note None Note: Reported Physicians:Ordering: Cristino FerreiraAttending: Jos Rivas To: Maya Barron Reviewed by Maya Barron MD on 04/26; All test results are final unless otherwise noted. URINALYSIS [facility] Ordered by Maya Barron MD on 04/25/2020 Collected: 04/25/2020 Reported: 04/25/2020 21:54 Urobilinogen Ur Ql See Note (0.2-1 EU/dl) None Note: 0.2 EU/dl0.2 EU/[id number] E U/dlResponsible Observer: UROBILINOGEN UROBILINOGEN 300.4500 (C) RBC # Ur Strip NEGATIVE (NEGATIVE) None Note: Responsible Observer: BLOOD BLOOD 300.4650 (C) Prot Ur Ql Strip See Note (NEGATIVE) None Note: [id number] EResponsible Observer: PROTEIN PROTEIN 300.3750 (C) Ketones Ur Ql Strip See Note (NEGATIVE) None Note: [id number] EResponsible Observer: KETONE KETONE 300.3900 (C) Bilirub Ur Ql Strip.auto See Note (NEGATIVE) None Note: [id number] EResponsible Observer: BILIRUBIN BILIRUBIN 300.4550 (C) Glucose Ur Strip.auto-mCnc NEGATIVE (NEGATIVE) None Note: Responsible Observer: GLUCOSE GLUC OSE 300.3850 (C) Appearance Ur See Note (CLEAR) None Note: CLEARCLEARLCLEARResponsible Observ er: APPEARANCE APPEARANCE 300.3400 (A) Color Ur See Note None Note: YELLOWYELLOWLYELLOWResponsible Obs erver: COLOR COLOR 300.3300 (A) Leukocyte esterase Ur Ql Strip See Note (NEGATIVE) None Note: [id number]@DO MICR O!!!!Responsible Observer: LEUKOCYTES LEUKOCYTES 300.3575 (C) Nitrite Ur Ql Strip See Note (NEGATIVE) None Note: [id number] EResponsible Observer: NITRITE NITRITE 300.3650 (B) pH Ur Strip 7.0 (5-8) None Note: Responsible Observer: PH PH 300.3 450 (C) Sp Gr Ur Refractometry 1.002 (1.005-1.030) None Note: Responsible Observer: SP GRAVITY U RINE SPECIFIC GRAVITY-MAN 300.3475 (C) URINE MICROSCOPIC ADDED Microscopic Added None Note: Responsible Observer: UA URINE SHAWN ROSCOPIC PENDING 300.4660 (D) NOTES See Note None Note: @04/25/20 2150: UA W/ MICRO added. RFLXG = UMIC.Method of Collection:: Voided Reviewed by Maya Barron MD on 04/26; All test results are final unless otherwise noted. Reported Physicians [facility] Ordered by Maya Barron MD on 04/25/2020 Collected: 04/25/2020 Reported: 04/25/2020 21:54 Reported Physicians See Note None Note: Reported Physicians:Ordering: Aj Ferreiraending: Jos Rivas To: Maya Barron Reviewed by Maya Barron MD on 04/26; All test results are final unless otherwise noted. BHCG, QUANTITATIVE [facility] Ordered by Maya Barron MD on 04/18/2020 Collected: 04/18/2020 Reported: 04/18/2020 15:11 B-HCG SerPl-aCnc 62 MilliInternationalUnitsPerMilliLiter_[Arbitrary_Con (0-10) H (High) Note: APPROXIMATE GESTATION AGE APRROXIMATE HCG RANGE 0-1 WEEK 0 - 50 1-2 WEEKS 40 - 300 2-3 WEEKS 100 - 1,000 3-4 WEEKS 500 - 6,000 1-2 MONTHS 5,000 - 200,000 2-3 MONTHS 10,000 - 100,000 2ND TRIMESTER 3,000 - 50,000 3RD TRIMESTER 1,000 - 50,000Responsible Observer: BHCG,QUANT BHCG, QUANTITATIVE 600.5006 (G) Reviewed by Maya Barron MD on 04/19; All test results are final unless otherwise noted. Reported Physicians [facility] Ordered by Maya Barron MD on 04/18/2020 Collected: 04/18/2020 Reported: 04/18/2020 15:11 Reported Physicians See Note None Note: Reported Physicians:Ordering: Maya AlvarengaAttending: Maya Barron Reviewed by Maya Barron MD on 04/19; All test results are final unless otherwise noted. ADD ON MICROSCOPIC [facility] Ordered by Maya Barron MD on 04/16/2020 Collected: 04/16/2020 Reported: 04/16/2020 23:51 ADD ON MICROSCOPIC See Note (0-5) None Note: NOTES OTHER/NOT INTERPRETED Bacteria UrnS Ql Micro SMALL AMOUNT Bacteria UrnS Ql Micro SMALL AMOUNT Bacteria UrnS Ql Micro L Bacteria UrnS Ql Micro Bacteria UrnS Ql Micro Bacteria UrnS Ql Micro Bacteria UrnS Ql Micro [id number] Bacteria UrnS Ql Micro Bacteria UrnS Ql Micro SMALL AMOUNT Cells UrnS Micro MODERATE Cells UrnS Micro MODERATE Cells UrnS Micro MODERATE Cells UrnS Micro L Cells UrnS Micro Cells UrnS Micro Cells UrnS Micro Cells UrnS Micro Cells UrnS Micro WBC # Ur Manual 3-5 Reason for ordering culture: Abnormal findings UA@04/16/20 2351: UA W/ MICRO added. RFLXG = UMIC CIF.Method of Collection:: VoidedResponsible Observer: WBC WBC 300.5005 (A) Reviewed by Maya Barron MD on 04/17; All test results are final unless otherwise noted. Reported Physicians [facility] Ordered by Maya Braron MD on 04/16/2020 Collected: 04/16/2020 Reported: 04/16/2020 23:52 Reported Physicians See Note None Note: Reported Physicians:Ordering: Romel Josettending: Jose E JoseodCopyifan To: Maya Barron Reviewed by Maya Barron MD on 04/17; All test results are final unless otherwise noted. UA W/ CULTURE IF ABNORMAL [facility] Ordered by Maya Barron MD on 04/16/2020 Collected: 04/16/2020 Reported: 04/16/2020 23:51 Urobilinogen Ur Ql See Note (0.2-1 EU/dl) None Note: 0.2 EU/dl0.2 [id number] E U/dlResponsible Observer: UROBILINOGEN UROBILINOGEN 300.4500 (C) RBC # Ur Strip NEGATIVE (NEGATIVE) None Note: Responsible Observer: BLOOD BLOOD 300.4652 (C) Prot Ur Ql Strip See Note (NEGATIVE) None Note: [id number] EResponsible Observer: PROTEIN PROTEIN 300.3750 (C) Ketones Ur Ql Strip See Note (NEGATIVE) None Note: [id number] ble Observer: KETONE KETONE 300.3900 (C) Bilirub Ur Ql Strip.auto See Note (NEGATIVE) None Note: [id number] EResponsible Observer: BILIRUBIN BILIRUBIN 300.4550 (C) Glucose Ur Strip.auto-mCnc NEGATIVE (NEGATIVE) None Note: Responsible Observer: GLUCOSE GLUC OSE 300.3850 (C) Appearance Ur See Note (CLEAR) None Note: CLEARCLEARLCLEARResponsible Observ er: APPEARANCE APPEARANCE 300.3400 (A) Color Ur See Note None Note: YELLOWYELLOWLYELLOWResponsible Obs erver: COLOR COLOR 300.3330 (A) Leukocyte esterase Ur Ql Strip See Note (NEGATIVE) None Note: [id number] E@DO MICRO!!!!A Culture has been added to this specimen per established criteriaResponsible Observer: LEUKOCYTES LEUKOCYTES 300.3576 (C) Nitrite Ur Ql Strip See Note (NEGATIVE) None Note: [id number] EResponsible Observer: NITRITE NITRITE 300.3652 (B) pH Ur Strip 6.5 (5-8) None Note: Responsible Observer: PH PH 300.3 450 (C) Sp Gr Ur Refractometry 1.009 (1.005-1.030) None Note: Responsible Observer: SP GRAVITY U RINE SPECIFIC GRAVITY-MAN 300.3475 (C) URINE MICROSCOPIC? (CIF) Microscopic Added None Note: Responsible Observer: UA URINE SHAWN ROSCOPIC PENDING 300.4665 (D) NOTES See Note None Note: Reason for ordering culture: Abnor mal findings UA@04/16/20 2351: UA W/ MICRO added. RFLXG = UMIC CIF.Method of Collection:: Voided Reviewed by Maya Barron MD on 04/18; All test results are final unless otherwise noted. Urine culture [facility] Ordered by Maya Barron MD on 04/16/2020 Collected: 04/16/2020 Reported: 04/18/2020 06:47 Urine culture result See Note None Note: Less than 10,000 CFU/MLNormal Comm ensal FloraProbable contaminants no senst done NOTES See Note None Note: @04/16/20 2351: Urine culture adde d. RFLXG = CULT.ADD. Reviewed by Maya Barron MD on 04/18; All test results are final unless otherwise noted. Reported Physicians [facility] Ordered by Maya Barron MD on 04/16/2020 Collected: 04/16/2020 Reported: 04/18/2020 06:47 Reported Physicians See Note None Note: Reported Physicians:Ordering: Damon , VinodAttending: Damon, VinodCopy To: Maya Barron Reviewed by Maya Barron MD on 04/18; All test results are final unless otherwise noted. CBC W AUTO DIFF [facility] Ordered by Maya Barron MD on 04/16/2020 Collected: 04/16/2020 Reported: 04/16/2020 22:28 MCV BldCo Auto 87.6 FemtoLiter_[SI_Volume_Units] (80-96) N (Normal) Note: Responsible Observer: MCV MCV 100 .0600 (B) RDW RBC Auto 13 percent (11-15) N (Normal) Note: Responsible Observer: RDW RDW 100 .0900 (B) Manual diff Bld NO None Note: Responsible Observer: CBC Manual D ifferential Added 100.1990 (B) PMV Bld 10.0 FemtoLiter_[SI_Volume_Units] (9.1-13.1) N (Normal) Note: Responsible Observer: MPV MPV 100 .1100 (B) Imm Granulocytes Bld Ql Auto See Note (0-2) N (Normal) Note: [id number] Ob server support technician: IG% IG% 100.1375 (B) Hct VFr Bld Auto 39.4 percent (37-47) N (Normal) Note: Responsible Observer: HEMATOCRIT H EMATOCRIT 100.0500 (B) MCHC BldCo-mCnc 33.0 GramsPerDeciLiter_[Mass_Concentration_Units] (33-37) N (Normal) Note: Responsible Observer: MCHC MCHC 1 00.0800 (B) Imm Granulocytes # Bld Auto 0.0 Unit (0-0.1) None Note: Responsible Observer: IG# IG# 100 .1400 (B) Monocytes/leuk NFr Bld Auto 9.0 percent (4-12) N (Normal) Note: Responsible Observer: MONO % MONO % 100.1225 (B) Hgb Bld-sCnc 13.0 GramsPerDeciLiter_[Mass_Concentration_Units] (10.7-15.4) N (Normal) Note: Responsible Observer: HGB HEMOGLOB IN 100.0400 (B) WBC # Bld Auto 8.3 ThousandsPerMicroLiter_[Number_Concentration_Units] (4.45-10 .71) N (Normal) Note: Responsible Observer: WBC WHITE BL OOD COUNT 100.0100 (E) Basophils # Bld Auto 0.0 Unit (0.0-0.2) N (Normal) Note: Responsible Observer: BASO # BASO# 100.1350 (B) Basophils/leuk NFr Bld Auto 0.4 percent (0.4-1.3) N (Normal) Note: Responsible Observer: BASO % BASO % 100.1325 (B) Eosinophil # Bld Auto 0.0 Unit (0.0-0.5) N (Normal) Note: Responsible Observer: EOS # EOS# 100.1300 (D) Eosinophil/leuk NFr Bld Auto 0.2 percent (0-7) N (Normal) Note: Responsible Observer: EOS % EOS % 100.1275 (B) Lymphocytes # Bld Auto 2.9 Unit (0.6-4.6) N (Normal) Note: Responsible Observer: LYMPH # LYMP H# 100.1200 (B) Lymphocytes/leuk NFr Bld Auto 35.3 percent (14-46) N (Normal) Note: Responsible Observer: LYMPH % LYMP H % 100.1175 (B) Monocytes # Bld Auto 0.8 Unit (0.2-1.2) N (Normal) Note: Responsible Observer: MONO # MONO# 100.1250 (C) Neutrophils # Bld Auto 4.6 Unit (1.7-7.6) N (Normal) Note: Responsible Observer: NEUT# NEUT# 100.1150 (B) Neutrophils/leuk NFr Bld Auto 54.9 percent (41-77) N (Normal) Note: Responsible Observer: NEUT% NEUT% 100.1125 (B) Platelet # Bld Auto 285 ThousandsPerMicroLiter_[Number_Concentration_Units] (130-472 ) N (Normal) Note: Responsible Observer: PLATELET COU NT PLATELET COUNT 100.1000 (D) MCH RBC Qn Auto 28.9 PicoGram_[SI_Mass_Units] (27-31) N (Normal) Note: Responsible Observer: MCH MCH 100 .0700 (B) RBC # Bld Auto 4.50 MillionsPerMicroLiter_[Number_Concentration_Units] (4.20-5.4 0) N (Normal) Note: Responsible Observer: RBC Red Bloo d Count 100.0300 (B) NUCLEATED RED BLOOD CELL# 0 Unit None Note: Responsible Observer: NRBC# NUCLEA VICTOR M RBC 100.1362 (A) NUCLEATED RED BLOOD CELL 0 percent None Note: Responsible Observer: NRBC% NRBC% 100.1360 (B) Reviewed by Maya Barron MD on 04/17; All test results are final unless otherwise noted. BHCG, QUANTITATIVE [facility] Ordered by Maya Barron MD on 04/16/2020 Collected: 04/16/2020 Reported: 04/16/2020 22:46 B-HCG SerPl-aCnc 27 MilliInternationalUnitsPerMilliLiter_[Arbitrary_Con (0-10) H (High) Note: APPROXIMATE GESTATION AGE APRROXIMATE HCG RANGE 0-1 WEEK 0 - 50 1-2 WEEKS 40 - 300 2-3 WEEKS 100 - 1,000 3-4 WEEKS 500 - 6,000 1-2 MONTHS 5,000 - 200,000 2-3 MONTHS 10,000 - 100,000 2ND TRIMESTER 3,000 - 50,000 3RD TRIMESTER 1,000 - 50,000Responsible Observer: BHCG,QUANT BHCG, QUANTITATIVE 600.5006 (G) Reviewed by Maya Barron MD on 04/17; All test results are final unless otherwise noted. Reported Physicians [facility] Ordered by Maya Barron MD on 04/16/2020 Collected: 04/16/2020 Reported: 04/16/2020 22:47 Reported Physicians See Note None Note: Reported Physicians:Ordering: Damon VinodAttending: Damon VinodCopy To: Maya Barron Reviewed by Maya Barron MD on 04/17; All test results are final unless otherwise noted. CMP [facility] Ordered by Maya Barron MD on 04/16/2020 Collected: 04/16/2020 Reported: 04/16/2020 22:44 ALT SerPl w P-5'-P-cCnc 22 enzyme_unit_per_liter (10-49) N (Normal) Note: Responsible Observer: SGPT/ALT SGP T/ALT 400.1750 (G) Calcium SerPl-mCnc 9.0 MilliGramsPerDeciLiter_[Mass_Concentration_Units] (8.5-10.1) N (Normal) Note: Responsible Observer: Calcium Calc ium 400.2500 (G) Bilirub SerPl-mCnc 0.3 MilliGramsPerDeciLiter_[Mass_Concentration_Units] (0.3-1.2) N (Normal) Note: Responsible Observer: T KELLIE Total Bilirubin 400.2600 (G) CO2 SerPl-sCnc 22 MilliMolesPerLiter_[Substance_Concentration_Units] (20-31) N (Normal) Note: Responsible Observer: CO2 Carbon D ioxide 400.1400 (G) Chloride SerPl-sCnc 109 MilliMolesPerLiter_[Substance_Concentration_Units] (99-109) N (Normal) Note: Responsible Observer: Chloride Chl oride 400.1250 (G) Glucose SerPl-mCnc 88 MilliGramsPerDeciLiter_[Mass_Concentration_Units] (74-106) N (Normal) Note: Responsible Observer: Glucose Gluc ose 400.1500 (G) Potassium SerPl-sCnc 3.6 MilliMolesPerLiter_[Substance_Concentration_Units] (3.5-5.5) N (Normal) Note: Responsible Observer: K Potassium 400.1210 (G) Prot SerPl-mCnc 7.8 GramsPerDeciLiter_[Mass_Concentration_Units] (5.7-8.2) N (Normal) Note: Responsible Observer: TP Total Pro tein 400.2800 (G) Sodium SerPl-sCnc 140 MilliMolesPerLiter_[Substance_Concentration_Units] (132-146) N (Normal) Note: Responsible Observer: Sodium Sodiu m 400.1100 (G) AST SerPl w P-5'-P-cCnc 16 enzyme_unit_per_liter (0-33) N (Normal) Note: Responsible Observer: SGOT / AST S GOT / AST 400.1900 (G) BUN SerPl-mCnc 11 MilliGramsPerDeciLiter_[Mass_Concentration_Units] (9-23) N (Normal) Note: Responsible Observer: BUN Blood Ur ea Nitrogen 400.1000 (G) Anion Gap SerPl-sCnc 13 MilliMolesPerLiter_[Substance_Concentration_Units] (8-16) N (Normal) Note: Responsible Observer: ANION GAP AN ION GAP 400.1402 (E) Albumin SerPl BCP-mCnc 4.0 GramsPerDeciLiter_[Mass_Concentration_Units] (3.2-4.8) N (Normal) Note: Responsible Observer: Albumin Albu min 400.2700 (G) ALP SerPl-cCnc 103 enzyme_unit_per_liter (45-129) N (Normal) Note: Responsible Observer: ALP Alkaline Phosphatase 400.2000 (G) GFR/BSA.pred SerPlBld-ArVRat Greater Than 60 (ABOVE 60) None Note: Responsible Observer: GFR Glomerul ar Filt Rate Calc 400.1605 (D) Creatinine 0.7 MilliGramsPerDeciLiter_[Mass_Concentration_Units] (0.5-1.1) N (Normal) Note: Responsible Observer: Creatinine C reatinine 400.1600 (G) Reviewed by Maya Barron MD on 04/17; All test results are final unless otherwise noted. Reported Physicians [facility] Ordered by Maya Barron MD on 04/16/2020 Collected: 04/16/2020 Reported: 04/16/2020 22:44 Reported Physicians See Note None Note: Reported Physicians:Ordering: Jose E JoseodAttending: Jose E JoseodCopy To: Maya Barron Reviewed by Maya Barron MD on 04/17; All test results are final unless otherwise noted. LIPASE [facility] Ordered by Maya Barron MD on 04/16/2020 Collected: 04/16/2020 Reported: 04/16/2020 22:44 Lipase SerPl-cCnc 107 enzyme_unit_per_liter (73-393) N (Normal) Note: Responsible Observer: Lipase Lipas e 400.2310 (G) Reviewed by Maya Barron MD on 04/17; All test results are final unless otherwise noted. Reported Physicians [facility] Ordered by Maya Barron MD on 04/16/2020 Collected: 04/16/2020 Reported: 04/16/2020 22:44 Reported Physicians See Note None Note: Reported Physicians:Ordering: Jose E JoseodAttending: Damon, VinodCopy To: Maya Barron Reviewed by Maya Barron MD on 04/17; All test results are final unless otherwise noted. Type and Screen [facility] Ordered by Maya Barron MD on 04/16/2020 Collected: 04/16/2020 Reported: 04/16/2020 23:09 Blood bank studies Yes None Note: Responsible Observer: Prev. Histor y? Previous History? 100.0800 (A) Antibody Screen NEGATIVE None Note: Responsible Observer: Antibody Scr een Antibody Screen 200.0000 (C) Blood Type See Note None Note: OPO PositiveLResponsible Observer: Blood Type Blood Type 110.0950 (C) NOTES See Note None Note: :: NTransfused within 90 d ays?: NPre Op? (IF Yes, give date): N Reviewed by Maya Barron MD on 04/17; All test results are final unless otherwise noted. Reported Physicians [facility] Ordered by Maya Barron MD on 04/16/2020 Collected: 04/16/2020 Reported: 04/16/2020 23:09 Reported Physicians See Note None Note: Reported Physicians:Ordering: Romel Josettending: Damon VinodCopy To: Maya Barron Reviewed by Maya Barron MD on 04/17; All test results are final unless otherwise noted. Urinalysis w/out microscopy Office Lab Ordered by Maya Barron MD on [address] [place] [address], [id number] Specimen Source: Urine Collected: Reported: 2020 11:41 tel: bilirubin NEGATIVE (neg) N (Normal) blood NEGATIVE (neg) N (Normal) glucose NEGATIVE (neg) N (Normal) ketone NEGATIVE (neg) N (Normal) leukocytes MODERATE A (Abnormal) nitrites NEGATIVE (neg) N (Normal) pH 5.0 (5.0-8.5) N (Normal) protein NEGATIVE (neg-trace) N (Normal) specific gravity 1.020 (1.005-1.025) N (Normal) urobilinogen .2 (.2-1) N (Normal) Reviewed by Maya Barron MD on 07/19; All test results are final unless otherwise noted. History of Present Illness History of Present Illness not supported for this document typeNo History of Present Illness Recorded Social History Description Last Updated Under stress financially stressed, angelau ggling with rent, food, living necessities 07/11/2020 Smoking status : Never smoker 08/07/2019 No consumption of alcohol 03/04/2018 No tobacco use 03/04/2018 Not using drugs 03/04/2018 Procedures and Surgical History Includes: Procedures from 04/13/2020 through 04/13/2021 Procedures Code Diagnosis Performing Provider Service Location Service Date no charge procedure NC Other mental disorde rs complicating the puerperium, Benign neoplasm of pituitary gland Maya Barron MD [facility], [facility] 03/28/2021 Vaginal Delivery.antepatrum care, Post p artum care (delivery less than 39 weeks. medically necessary) [id number] Encounter for full-term unco mplicated delivery, Labor and delivery comp by cord around neck, w comprsn, unsp, 38 weeks gestation of , Single live Maya Barron MD [facility] 03/20/2021 REVISIT- office visit K[facility]LE[facility] 37 weeks gestatio n of Maya Barron MD [facility], [facility] 03/13/2021 (ADD -26 modifer) Non stress test interpretation (Profession al Comp.) 21782 False labor, unspecified, Dehydration, 37 weeks gestation of , Encntr for suprvsn of normal preg, unsp, third trimester Maya Barron MD [facility] Outpt 03/08/2021 REVISIT- office visit [facility] 36 weeks gestatio n of Maya Barron MD [facility], [facility] 03/07/2021 REVISIT- office visit [facility] 35 weeks gestatio n of Cat Gutierrez [facility], [facility] 02/27/2021 REVISIT- office visit [facility] 34 weeks gestatio n of Maya Barron MD [facility], [facility] 02/23/2021 REVISIT- office visit [facility] 29 weeks gestatio n of Maya Barron MD [facility], [facility] 01/16/2021 REVISIT- office visit [facility] 27 weeks gestatio n of Maya Barron MD [facility], [facility] 12/26/2020 REVISIT- office visit [facility] 23 weeks gestatio n of Maya Barron MD [facility], [facility] 12/05/2020 REVISIT- office visit K[facility] 22 weeks gestatio n of Maya Barron MD [facility], [facility] 11/28/2020 no charge procedure NC Tension-type headache, unspe cified, intractable Maya Barron MD [facility], [facility] 11/21/2020 REVISIT- office visit [facility] 21 weeks gestatio n of Maya Barron MD [facility], [facility] 11/21/2020 REVISIT- office visit K[facility] 20 weeks gestatio n of Maya Barron MD [facility], [facility] 11/14/2020 no charge procedure NC Palpitations Maya Barron MD [facility], [facility] 11/03/2020 no charge procedure NC Palpitations Maya Barron MD [facility], [facility] 10/31/2020 REVISIT- office visit K[facility]LE[facility] 18 weeks gestatio n of Maya Barron MD [facility], [facility] 10/31/2020 REVISIT- office visit K[facility] 17 weeks gestatio n of Maya Barron MD [facility], [facility] 10/24/2020 no charge procedure NC Palpitations Maya Barron MD [facility], [facility] 10/17/2020 REVISIT- office visit K[facility]LE[facility] 16 weeks gestatio n of Maya Barron MD [facility], [facility] 10/17/2020 Holter Monitor, Physician review & interpretation only [id number] Palpitations Michel Villalba MD [facility] Outpt 10/11/2020 REVISIT- office visit K[facility]LE[facility] 15 weeks gestatio n of Maya Barron MD [facility], [facility] 10/11/2020 REVISIT- office visit K[facility] 13 weeks gestatio n of Maya Barron MD [facility], [facility] 09/27/2020 REVISIT- office visit K[facility]LE[facility] 12 weeks gestatio n of Maya Barron MD [facility], [facility] 09/19/2020 EKG- Electrocardiogram/12 lead 36818 Chest pain, unspe cified aCt Gutierrez [facility], [facility] 09/11/2020 REVISIT- office visit [facility]LE[facility] 10 weeks gestatio n of Cat Huston [facility], [facility] 09/05/2020 REVISIT- office visit K[facility]LEIGH 8 weeks gestation of Maya Barron MD [facility], [facility] 08/22/2020 Urinalysis w/o Microscopy (Distinct Seperate service-same da y) 38249 Frequency of micturition- Urinary Frequency Maya Barron MD [facility], [facility] 08/15/2020 RAPID STREP 54159 Acute pharyngitis, unspecified Maya Barron MD [facility], [facility] 08/15/2020 Initial Obstetrical Care Office Visit OB Le ss than 8 weeks [facility] 021 Urinalysis w/o Microscopy 63660 Frequency of micturiti on- Urinary Frequency Maya Barron MD [facility], [facility] 07/19/2020 REVISIT- office visit K[facility]LE[facility] Threatened Alicja Barron MD [facility], [facility] 05/26/2020 NO CHARGE- Nurse visit- OB establish [employer] Thr eatened , state, incidental Maya Barron MD [facility], [facility] 020 Surgical History Last Updated No surgical / procedural history 03/04/2018 Medical History Includes: Medical History in patient's chart Description Last Updated History of psychiatric disorders 08/09/2020 Past medical history 04/07/2019 Denial of any significant medical history 03/04/2018 Family History Includes: Family History in patient's chart Description Last Updated Brother in good health 03/04/2018 Father alive and well 03/04/2018 Mother in good health 03/04/2018 Second brother in good health 03/04/2018 Review of Systems Review of Systems not supported for this document typeNo Review of Systems Recorded Mental Status Mental Status not supported for this document type Description Anxiety Functional Status Functional Status not supported for this document typeNo Functional Status Recorded Physical Exam Physical Exam not supported for this document typeNo Physical Exam Recorded Immunizations Includes: Immunizations in patient's chart Vaccine Dose # Date Site Reaction(s) Status Source DTaP 1 1999 Complete (Reported) Patient DTaP 2 1999 Complete (Reported) Patient DTaP 3 1999 Complete (Reported) Patient DTaP 4 10/17/2000 Complete (Reported) Patient DTaP 5 03/22/2004 Complete (Reported) Patient Gardasil 1 04/29/2013 Complete (Reported) Patient Gardasil 2 07/01/2013 Complete (Reported) Patient Hep B pediatric 1 04/13/2001 Complete (Reported) P atient Hep B pediatric 2 09/18/2001 Complete (Reported) P atient Hib (PRP-T ActHIB) 1 1999 Complete (Reported ) Patient Hib (PRP-T ActHIB) 2 1999 Complete (Reported ) Patient Hib-Hep B (Comvax) 1 07/15/2000 Complete (Reported ) Patient Influenza, seasonal, injectable 1 09/18/2001 Compl ete (Reported) Patient Influenza, seasonal, injectable 2 04/23/2002 Compl ete (Reported) Patient Influenza, seasonal, injectable 3 06/19/2006 Compl ete (Reported) Patient IPV 1 1999 Complete (Reported) Patient IPV 2 1999 Complete (Reported) Patient IPV 3 01/03/2000 Complete (Reported) Patient IPV 4 03/22/2004 Complete (Reported) Patient Meningococcal (MCV4) conjugate vaccine 1 04/29/2013 Complete (Reported) Patient Meningococcal (MCV4) conjugate vaccine 2 04/29/2016 Complete (Reported) Patient MMR 1 04/18/2000 Complete (Reported) Patient MMR 2 03/22/2004 Complete (Reported) Patient PCV (Prevnar) 1 04/18/2000 Complete (Reported) Pat ient PCV (Prevnar) 2 07/15/2000 Complete (Reported) Pat ient Tdap (> 7 yrs) 1 04/29/2016 Complete (Reported) Pa kiki Tdap (> 7 yrs) 2 01/16/2021 Left Deltoid Complete (A dministered) [facility] Varicella 1 04/18/2000 Complete (Reported) Patient Varicella 2 04/29/2016 Complete (Reported) Patient Allergies Includes: Active, inactive, and resolved Allergies Substance Type Reaction Onset Date - Time Resolved Date - Ti me Status Naproxen Allergy Skin Rashes 02/01/2020 - 12:00AM Act marquita Encounters Includes: Encounters from 04/13/2020 through 04/13/2021 Encounter Provider Location Date Check-In Time Check-Out Time D iagnosis Telehealth communication Maya Barron MD [facility], [facility] 04/13/2021 11:26AM 03/28/2021 11:59PM Gastroenteritis, Gen eralized Anxiety Disorder Transitional Care Management HIGH complexity Maya rico MD [facility], [facility] 03/28/2021 2:31PM 3:10PM Maternal Mental Disorder Complicating Childbirth and Puerperium, Pituitary Neoplasm Benign TCMNV phone call- NO CHARGE Maya Barron MD [facility] 2021 03/13/2021 12:00PM 03/13/2021 11:59PM Chest Pain, Fracture of Fifth Cervical Vertebral Body, Generalized Anxiety Disorder, History of Psychiatric Disorders, Reactive Airway Disease REVISIT- Routine (OB) Visit Maya Barron MD [facility], [facility] 03/13/2021 9:55AM 10:07AM REVISIT- Routine (OB) Visit Maya Barron MD [facility], [facility] 03/07/2021 10:01AM 10:23AM REVISIT- Routine (OB) Visit Cat Gutierrez RPA [facility], [facility] 02/27/2021 9:52AM 10:21AM REVISIT- Routine (OB) Visit Maya Barron MD [facility], [facility] 02/23/2021 2:25PM 2:41PM REVISIT- Routine (OB) Visit Maya Barron MD [facility], [facility] 01/16/2021 9:52AM 10:23AM Telehealth communication Maya Barron MD [facility], [facility] 01/09/2021 12/26/2020 10:00AM 10:27AM Generalized Anxiety Disorder, Chest Pain, Iron Deficiency Anemia, Upper Respiratory Infection REVISIT- Routine (OB) Visit Maya Barron MD [facility], [facility] 12/26/2020 9:45AM 10:08AM telephone conversation Michel Villalba MD 1 12/14/2020 9:13AM 12/14/2020 11:59PM Atypical Chest Pain telephone conversation Michel Villalba MD 1 12/14/2020 6:45PM 12/14/2020 11:59PM Hypotension telephone conversation Maya Barron MD [facility] 12/19/2020 12/14/2020 2:14PM 12/14/2020 11:59PM Fracture of Fifth Ce rvical Vertebral Body, History of Psychiatric Disorders, Reactive Airway Disease Problem visit - not contagious Bandar Cleveland PA-C [facility], [facility] 12/14/2020 2:08PM 2:52PM Tension-type Headach e REVISIT- Routine (OB) Visit Maya Barron MD [facility], [facility] 12/05/2020 11:17AM 12:08PM REVISIT- Routine (OB) Visit Maya Barron MD [facility], [facility] 11/28/2020 1:34PM 1:51PM Chronic Care Mgt - Office Visit Maya Barron MD [facility], [facility] 11/21/2020 2:10PM 2:35PM Fracture of Fift h Cervical Vertebral Body, History of Psychiatric Disorders, Reactive Airway Disease REVISIT- Routine (OB) Visit Maya Barron MD [facility], [facility] 11/21/2020 11:33AM 12:01PM REVISIT- Routine (OB) Visit Maya Barron MD [facility], [facility] [facility] 11/14/2020 9:55AM 10:36AM REVISIT- Routine (OB) Visit Maya Barron MD [facility], [facility] 11/07/2020 11:42AM 12:02PM OB- ILL VISIT Maya Barron MD [facility], [facility] 11/03/2020 3:45PM 4:29PM , Generalized Anxie ty Disorder, Panic Disorder, Chest Pain Chronic Care Mgt - Office Visit Maya Barron MD [facility], [facility] 11/03/2020 2:37PM 3:38PM Chronic Care Mgt - Office Visit Maya Barron MD [facility], [facility] 10/31/2020 3:23PM 3:24PM Fracture of Fift h Cervical Vertebral Body, History of Psychiatric Disorders, Reactive Airway Disease REVISIT- Routine (OB) Visit Maya Barron MD [facility], [facility] 10/31/2020 9:54AM 10:24AM Chronic Care Mgt - Office Visit Maya Barron MD [facility], [facility] 10/24/2020 2:16PM 11:59PM REVISIT- Routine (OB) Visit Maya Barron MD [facility], [facility] 10/24/2020 10:00AM 10:47AM REVISIT- Routine (OB) Visit Maya Barron MD [facility], [facility] 10/17/2020 11:24AM 12:12PM Chronic Care Mgt - Office Visit Maya Barron MD [facility], [facility] 10/17/2020 11:25AM 12:11PM Fracture of Fift h Cervical Vertebral Body, History of Psychiatric Disorders, Reactive Airway Disease REVISIT- Routine (OB) Visit Maya Barron MD [facility], [facility] 10/11/2020 9:44AM 10:15AM OB- ILL VISIT Maya Barron MD [facility], [facility] 10/04/2020 2:12PM 2:31PM Presyncope Syndrome, Tachyca rdia, Palpitations, Difficulty Breathing (Dyspnea), Weeks of Gestation - 14 REVISIT- Routine (OB) Visit Maya Barron MD [facility], [facility] 09/27/2020 1:36PM 1:59PM telephone conversation Michel Villalba MD 09/19/2020 9:43PM 09/19/2020 11:59PM Atypical Chest Pain REVISIT- Routine (OB) Visit Maya Barron MD [facility], [facility] 09/19/2020 9:48AM 10:14AM REVISIT- Routine (OB) Visit Cat Gutierrez [facility], [facility] 09/11/2020 3:22PM 4:16PM REVISIT- Routine (OB) Visit Cat Gutirerez [facility], [facility] 09/05/2020 9:37AM 10:00AM TCMNV phone call- NO CHARGE Cat Gutierrez [facility] 09/04/2020 09/05/2020 4:54PM 09/05/2020 11:59PM [Patient Encounter] Cat Gutierrez [facility] 08/31/2020 021 2:21PM 08/22/2020 11:59PM telephone conversation Michel Villalba MD 08/2808/22/2020 11:00AM 08/22/2020 11:59PM REVISIT- Routine (OB) Visit Maya Barron MD [facility], [facility] 08/22/2020 1:56PM 2:19PM sick visit Maya Barron MD [facility] 0 08/15/2020 9:36AM 10:12AM Upper Respiratory Infection Acute, Pollakiuria OB/1st visit *UA @ Checkin* Fax Demo's c Due Date* Cattee Gutierrez [facility] 08/09/2020 9:22AM 10:56AM followup Cat Gutierrez [facility] 0 08/02/2020 10:18AM 11:42AM Generalized Anxiety Disorder , Early Stage, Abdominal Pain telephone conversation Michel Villalba MD 07/26/2020 7:59AM 07/26/2020 11:59PM [Patient Encounter] Cattee Gutierrez [facility] 07/28/2020 021 2:20PM 07/26/2020 11:59PM followup Maya Barron MD [facility] 0 07/26/2020 10:39AM 11:02AM , Generalized Anxie ty Disorder sick visit Bandar Cleveland PA-C [facility], [facility] 3:36PM 4:30PM Pyrexia followup Maya Barron MD [facility] 0 07/19/2020 10:52AM 11:30AM , Generalized Anxie ty Disorder, Pollakiuria followup Maya Barron MD [facility] 1 09/11/2019 10:43AM 11:14AM Atypical Chest Pain, Adjustm ent Disorder followup Maya Barron MD [facility] 1 08/07/2019 10:43AM 10:59AM Missed followup Maya Barron MD [facility], [facility] 05/26 1:45PM 2:11PM with Threatened Problem visit - not contagious Maya Barron MD [facility], [facility] 05/24/2020 11:13AM 12:00PM with T hreatened [Patient Encounter] Maya Barron MD 05/24/2020 020 10:17AM 04/19/2020 11:59PM followup Maya Barron MD [facility] 1 11:51AM 12:08PM Insurance Includes: Active Insurance Policies Plan Name Member ID Group # Subscriber Relationship Effective Da greg 1 - MANAGED MEDICAID [facility] [id number] Georgiana Nguyen 07/14/2020 - Unknown Advance Directives Includes: Current Advance DirectivesNo Advance Directives Recorded Health Concerns Includes: Active Health ConcernsNo Active Health Concerns Recorded Goals Includes: Active GoalsNo Active Goals Recorded Interventions Includes: Interventions for active GoalsNo Interventions Recorded Evaluations & Outcomes Includes: Evaluations & Outcomes for active GoalsNo Outcomes Recorded
--- OUTSIDE RECORDS SUMMARY | 2021-04-29 16:35 | CCD ---
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 Barron at 2:45pm [facility] phone call- NO CHARGE with Maya Barron MD 2021 Transitional care management services with high comple xity decision making TCMNV phone call- NO CHARGE with Maya Barron MD 2021 Community resources No referrals needed at this time Chronic Care Mgt - Office Visit with Maya Barron MD 10/17/2020 Follow-up visit date 10/17/2020 PCP mukuli t and CCM visit (Dr. 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 Advised reaching out to older adult social work specialist for assistance with access to food and [...] as below. Pelv ic US reviewed from February,. RTC in 3 months for follow-up [Dysmenorrhea, unspecified] ANNUAL PE-followup exam with Maya Barron MD 04/10/2020 Routine adult history and physical (18 - 64 yrs) [employer] care with women's [facility] on health maintenance. 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 with women's [facility] on health maintenance [Encounter for general adult medical examination with abnormal findings] ANNUAL PE-followup exam/30 with Maya Barron MD 04/07/2019 Vaginal candidiasis sick visit with Cat [facility] 02/11 Pharyngitis urgent visit with Bandar Cleveland PA-C 2018 Sprained ribs ; left sick visit with [facility] Strain of muscle and tendon of front wall of thorax si ck visit with [facility] 10/30/2018 Fracture of fifth cervical vertebral body No Fault with Wanda a [facility] 03/04/2018 Late effects of accident No Fault with [facility] 0 03/04/2018 Instructions Instructions not supported for this document typeNo Instructions Recorded Medical Equipment - Implanted Devices Includes: Current and historical DevicesNo Medical Equipment Recorded Medications Includes: Current and historical Medications Current Medications (continue as prescribed) hydrOXYzine HCl 25 MG Oral Tablet 03/06/2021 [...] Sertraline HCl 100 MG Oral Tablet 10/24/2020 Provid er: Maya Barron MD Diagnosis: 1 PO QD [...] Solution 09/05/2020 - 11/04/2020 Provider: Cat Gutierrez [facility] Diagnosis: Other asthma- reacti ve airway disease 2 puffs q4hr prn Monistat 7 Combo Pack Chava 100 & 2 MG-% (9GM) Vaginal K it 08/31/2020 - 09/07/2020 Provider: Cat Gutierrez [facility] Diagnosis: as directed - Insert 1 applicatorful [...] 08/10/2020 - 08/17/2020 Pro vider: Cat Gutierrez [facility] Diagnosis: 1 PO BID Sertraline HCl 50 [...] Maya Barron MD Diagnosis: 1 PO QD Vancocin HCl 125 MG Oral Capsule 12/13/2019 - 12/13/2019 Pro vider: Maya Barron MD Diagnosis: 1 PO QID Firvanq 50 MG/ML Oral Solution Reconstituted 12/13/2019 - Provider: Maya Barron MD Diagnosis: as directed 2.5ml (125mg) QID Vancomycin HCl 125 MG Oral Capsule 12/13/2019 - 12/13/2019 P rovider: Maya Barron MD Diagnosis: 1 PO QID Pantoprazole Sodium 40 MG Oral Tablet [...] Recorded Vital Signs Includes: Vital Signs from 03/28/2020 through 03/28/2021 Vital Name 03/28/2021 02:49P 03/13/2021 10:02A 03/07/2021 [...] Area (m2) 1.62 1.57 Temp-Oral (F) 98.5 Vital Name 04/10/2020 08:48A Blood Pressure Sitting (mmHg) 118/82 Pulse Rate-Sitting (bpm) 72 Respiration Rate (breaths/min) 20 Weight (lb) 116.2 Height (in) 64 Body Mass Index (kg/m2) 19.9 Body Surface Area (m2) 1.55 Results Includes: Results from 03/28/2020 through 03/28/2021 UA W/ CULTURE IF ABNORMAL [facility] Ordered by Maya Barron MD on 2021 Collected: 2021 Reported: 2021 22:33 Urobilinogen Ur Ql See Note (0.2-1 EU/dl) None Note: 0.2 EU/dl0.2 EU/[id number] E U/dlResponsible Observer: UROBILINOGEN UROBILINOGEN 300.4500 (C) RBC # Ur Strip LARGE (NEGATIVE) None Note: @DO MICRO!!!!A Culture has been ad ded to this specimen per established criteriaResponsible Observer: BLOOD BLOOD 300.4652 (C) Prot Ur Ql Strip See Note (NEGATIVE) None Note: [id number] EResponsible Observer: PROTEIN PROTEIN 300.3750 (C) Ketones Ur Ql Strip See Note (NEGATIVE) None Note: 15 mg/dL15 mg/[id number] mg/d LResponsible Observer: KETONE KETONE 300.3900 (C) Bilirub Ur Ql Strip.auto See Note (NEGATIVE) None Note: [id number] EResponsible Observer: BILIRUBIN BILIRUBIN 300.4550 (C) Glucose Ur Strip.auto-mCnc NEGATIVE (NEGATIVE) None Note: Responsible Observer: GLUCOSE GLUC OSE 300.3850 (C) Appearance Ur See Note (CLEAR) None Note: CLEARCLEARLCLEARResponsible Observ er: APPEARANCE APPEARANCE 300.3400 (A) Color Ur See Note None Note: YELLOWYELLOWLYELLOWResponsible Obs erver: COLOR COLOR 300.3330 (A) Leukocyte esterase Ur Ql Strip See Note (NEGATIVE) None Note: [id number]@DO MICR O!!!!A Culture has been added to this specimen per established criteriaResponsible Observer: LEUKOCYTES LEUKOCYTES 300.3576 (C) Nitrite Ur Ql Strip See Note (NEGATIVE) None Note: [id number] EResponsible Observer: NITRITE NITRITE 300.3652 (B) pH [...] Reason for ordering culture: Abnor mal findings UA@03/26/215: UA W/ MICRO added. RFLXG = UMIC CIF.Method of Collection:: Voided Reviewed by Maya Barron MD on 03/28; All test results are final unless otherwise noted. Urine culture [facility] Ordered by Maya Barron MD on 2021 Collected: 2021 Reported: 03/28/2021 08:43 Urine culture result See Note None Note: Less than 10,000 CFU/MLStaph spp. coag negProbable contaminants no senst done NOTES See Note None Note: @03/26/213: Urine culture adde d. RFLXG = CULT.ADD. Reviewed by Maya Barron MD on 03/28; All test results are final unless otherwise noted. Reported Physicians [facility] Lab Ordered by Maya Barron MD on 2021 Collected: 2021 Reported: 03/28/2021 08:43 Reported Physicians See Note None Note: Reported Physicians:Ordering: Aj Ferreiraending: Jos Rivas To: Maya Barron Reviewed by Maya Barron MD on 03/28; All test results are final unless otherwise noted. ADD ON MICROSCOPIC [facility] Ordered by Maya Barron MD on 2021 Collected: 2021 Reported: 2021 22:33 ADD ON MICROSCOPIC See Note (0-5) H (High) Note: NOTES OTHER/NOT INTERPRETED RBC # Ur Manual 6-10 WBC # Ur Manual OCCASIONAL Reason for ordering culture: Abnormal findings UA@03/26/215: UA W/ MICRO added. RFLXG = UMIC CIF.Method of Collection:: VoidedResponsible Observer: RBC RBC 300.4900 (A) Reviewed by Maya Barron MD on 03/27; All test results are final unless otherwise noted. Reported Physicians [facility] Ordered by Maya Barron MD on 2021 Collected: 2021 Reported: 2021 22:34 Reported Physicians See Note None Note: Reported Physicians:Ordering: Aj Ferreiraending: Jos Rivas To: Maya Barron Reviewed by Maya Barron MD on 03/27; All test results are final unless otherwise noted. CBC W AUTO DIFF [facility] Ordered by Maya Barron MD on [...] Auto See Note (0-2) N (Normal) Note: [id number] Ob service observer chief: IG% IG% 100.1375 (B) Hct VFr Bld [...] test results are final unless otherwise noted. [facility] Lab Ordered by Maya Barron MD on [...] are final unless otherwise noted. Reported Physicians [facility] Ordered by Maya Barron MD on 2021 Collected: 2021 Reported: 2021 18:50 Reported Physicians See Note None Note: Reported Physicians:Ordering: Aj Ferreiraending: Jos Rivas To: Maya Barron Reviewed by Maya Barron MD on 03/27; All test results are final unless otherwise noted. D-DIMER [facility] Ordered by Maya Barron MD on [...] are final unless otherwise noted. Reported Physicians [facility] Ordered by Maya Barron MD on 2021 Collected: 2021 Reported: 2021 20:34 Reported Physicians See Note None Note: Reported Physicians:Ordering: Aj Ferreiraending: Jos Rivas To: Maya Barron Reviewed by Maya Barron MD on 03/27; All test results are final unless otherwise noted. Cepheid SARS/FLU/RSV RT-PCR [facility] Ordered by Maya Barron MD on [...] by FDA under an EUA for use [facility] hospitalhoriReclamador [id number]-uea CoV RNA Resp Ql ТАТЬЯНА+jroziYKLLSNBEUVV-AXP-3 NOT YUGGVFTHG1286255568COIG-XSS-2 NOT DXNYLKSS46688-9TXXIP RNA Resp Ql ТАТЬЯНА+probeLNNFLUAInfluenza A Not Det [id number] A Not Efwuobgo48456-1GDQCU RNA Resp Ql ТАТЬЯНА+probeLNNINBInfluenza B Not [id number] B Not Lddkhvfx06017- 2RSV RNA Resp Ql ТАТЬЯНА+probeLNNRSVRSV Not DallevveX2007999628LLC Not Detected Reviewed by Maya Barron MD on 03/27; All test results are final unless otherwise noted. Reported Physicians [facility] Ordered by Maya Barron MD on 2021 Collected: 2021 Reported: 2021 19:09 Reported Physicians See Note None Note: Reported Physicians:Ordering: Aj Ferreiraending: Jos Rivas To: Maya Barron Reviewed by Maya Barron MD on 03/27; All test results are final unless otherwise noted. [facility] Lab Ordered by Maya Barron [...] hrs Reviewed by Maya Barron MD on 03/28; All test results are final unless otherwise noted. Reported Physicians [facility] Ordered by Maya Barron MD on 2021 Collected: 2021 Reported: 03/27/2021 18:17 Reported Physicians See Note None Note: Reported Physicians:Ordering: Aj Ferreiraending: Jos Rivas To: Maya Barron Reviewed by Maya Barron MD on 03/28; All test results are final unless otherwise noted. Cepheid SARS/FLU/RSV RT-PCR [facility] Ordered by Maya Barron MD on [...] by FDA under an EUA for use [facility] [id number]-ckp CoV RNA Resp Ql ТАТЬЯНА+rrlctGFFHSDRORFL-DJA-4 NOT [id number]-YHG-8 NOT RXZGICVY29661-5ARGFA RNA Resp Ql ТАТЬЯНА+probeLNNFLUAInfluenza A Not Det [id number] A Not Gsmgdbpn56271-9IOARG RNA Resp Ql ТАТЬЯНА+probeLNNINBInfluenza B Not VbepaeldN1185796745Xpbiynazv B Not Fycfahzw59257- 2RSV RNA Resp Ql ТАТЬЯНА+probeLNNRSVRSV Not TsixpfciP5208760627AUB Not Detected Reviewed by Maya Barron MD on 03/26; All test results are final unless otherwise noted. Reported Physicians [facility] Ordered by Maya Barron MD on 03/23/2021 Collected: 03/23/2021 Reported: 03/23/2021 19:23 Reported Physicians See Note None Note: Reported Physicians:Ordering: Maya AlvarengaAttending: Hung Teranmitting: Dileep Teran To: Mike Teran Reviewed by Maya Barron MD on 03/26; All test results are final unless otherwise noted. U PC [facility] Ordered by Maya Barron MD on [...] are final unless otherwise noted. Reported Physicians [facility] Ordered by Maya Barron MD on 03/23/2021 Collected: 03/23/2021 Reported: 03/23/2021 07:59 Reported Physicians See Note None Note: Reported Physicians:Ordering: Choco KaurAttending: Hung Teranmitting: Dileep Teran To: Maya Barron Reviewed by Maya Barron MD on 03/23; All test results are final unless otherwise noted. URINE DRUG SCREEN -([facility]) [facility] Ordered by Maya Barron MD on 03/23/2021 Collected: 03/23/2021 Reported: 03/23/2021 08:11 PCP Ur Ql Scn>25 ng/mL See Note (Cutoff 25) None Note: [id number] E@Reenter manual test result: NEGATIVE@by Claudia Tello at 03/23/21808.Responsible Observer: PCP Urine Phencyclidine (PCP) Scrn 400.5120 (A) THC Ur Ql Scn>50 ng/mL See Note (Cutoff 50) None Note: [id number] EResponsible Observer: Marijuana (THC) Ur Marijuana (THC) Screen 400.5110 (A) Benzodiaz Ur Ql Scn See Note (Cutoff 150) None Note: [id number] E@Reenter manual test result: NEGATIVE@by Claudia Tello at 03/23/21 08.Responsible Observer: Benzodiazepines Urine Benzodiazepines Screen 400.5170 (A) Opiates Ur Ql Scn See Note (Cutoff 100) None Note: [id number] E@Reenter manual test result: NEGATIVE@by Claudia Tello at 03/23/21809.Responsible Observer: Opiates Urine Opiates Screen 400.5150 (A) Tricyclics Ur Ql Scn See Note (Cutoff 300) None Note: [id number] E@Reenter manual test result: NEGATIVE@by Claudia Tello at 03/23/21 08.Responsible Observer: TCA Ur Tricyclic Antidepressants 400.5180 (A) Cocaine Ur Ql Scn See Note (Cutoff 150) None Note: [id number] E@Reenter manual test result: NEGATIVE@by Claudia Tello at 03/23/21 08.Responsible Observer: Cocaine Urine Cocaine Screen 400.5130 (A) Propoxyph+Nor Ur Ql Scn See Note (Cutoff 300) None Note: [id number] E@Reenter manual test result: NEGATIVE@by Claudia Tello at 03/23/21 08.Responsible Observer: Propoxyphene Urine Propoxyphene Screen 400.5220 (A) Methadone Ur Ql Scn See Note (Cutoff 200) None Note: [id number] E@Reenter manual test result: NEGATIVE@by Claudia Tello at 03/23/21 08.Responsible Observer: Methadone Urine Methadone Screen 400.5190 (A) Methamphet Ur Ql Scn See Note (Cutoff 500) None Note: [id number] E@Reenter manual test result: NEGATIVE@by Claudia Tello at 03/23/21 0809.Responsible Observer: Methamphetamine Urine Methamphetamines Screen 400.5140 (A) oxyCODONE Ur Ql Scn See Note (Cutoff 100) None Note: [id number] E@Reenter manual test result: NEGATIVE@by Claudia Tello at 03/23/21 08.Responsible Observer: Oxycodone Urine Oxycodone Screen 400.5210 (A) Buprenorphine Ur Ql See Note (Cutoff 10) None Note: [id number] E@Reenter manual test result: NEGATIVE@by Claudia Tello at 03/23/21 08.Responsible Observer: Buprenorphine Urine Buprenorphine Screen 400.5230 (A) Amphetamines Ur Ql Scn>500 ng/mL See Note (Cutoff 500) None Note: [id number] E@Reenter manual test result: NEGATIVE@by Claudia Tello at 03/23/21 08.Responsible Observer: Amphetamines Urine Amphetamines Screen 400.5160 (A) Barbiturates Ur Ql Scn>200 ng/mL See Note (Cutoff 200) None Note: [id number] E@Reenter manual test result: NEGATIVE@by Claudia Tello at 03/23/21 08.Responsible Observer: Barbiturates Urine Barbiturates 400.5200 (A) Reviewed by Maya Barron MD on 03/23; All test results are final unless otherwise noted. Cepheid SARS/FLU/RSV RT-PCR [facility] Ordered by Maya Barron MD on [...] by FDA under an EUA for use [facility] [id number]-epr CoV RNA Resp Ql ТАТЬЯНА+tgnnzJWZXFCGAZQH-RKA-9 NOT [id number]-FJT-5 NOT PYBFMOKZ92050-2RUXMY RNA Resp Ql ТАТЬЯНА+probeLNNFLUAInfluenza A Not Det [id number] A Not Yekbyncn71934-4UDDIJ RNA Resp Ql ТАТЬЯНА+probeLNNINBInfluenza B Not FnhgwssnD1681653717Fagvcqrmh B Not Subfspqy75219- 2RSV RNA Resp Ql ТАТЬЯНА+probeLNNRSVRSV Not UqcjogvzB5891156404TJA Not Detected Reviewed by Maya Barron MD on 03/23; All test results are final unless otherwise noted. Reported Physicians [facility] Ordered by Maya Barron MD on 03/23/2021 Collected: 03/23/2021 Reported: 03/23/2021 07:54 Reported Physicians See Note None Note: Reported Physicians:Ordering: Felipa Porterending: Dheeraj TeranoAdmitting: Dheeraj TeranoCobobby To: Adam Pardo To: Maya Barron Reviewed by Maya Barron MD on 03/23; All test results are final unless otherwise noted. PTT [facility] Ordered by Maya Barron MD on 03/23/2021 Collected: 03/23/2021 Reported: 03/23/2021 07:21 Screen aPTT 25.0 second (22.7-31.6) N (Normal) Note: Responsible Observer: PTT PTT 200 .0500 (A) Reviewed by Maya Barron MD on 03/23; All test results are final unless otherwise noted. URIC ACID [facility] Ordered by Maya Barron MD on 03/23/2021 Collected: 03/23/2021 Reported: 03/23/2021 07:43 Urate SerPl-mCnc 2.1 MilliGramsPerDeciLiter_[Mass_Concentration_Units] (3.3-8.8) L (Low) Note: Responsible Observer: Uric Acid Ur ic Acid 400.3200 (G) Reviewed by Maya Barron MD on 03/23; All test results are final unless otherwise noted. Reported Physicians [facility] Ordered by Maya Barron MD on 03/23/2021 Collected: 03/23/2021 Reported: 03/23/2021 07:44 Reported Physicians See Note None Note: Reported Physicians:Ordering: Maya AlvarengaAttending: Tramaine PardoothyCopyifan To: Choco Pardo Reviewed by Maya Barron MD on 03/23; All test results are final unless otherwise noted. FREE T4 (LAB) [facility] Ordered by Maya Barron MD on 03/23/2021 Collected: 03/23/2021 Reported: 03/23/2021 06:10 T4 Free SerPl-mCnc 0.93 NanoGramsPerDeciLiter_[Mass_Concentration_Units] (0.89-1.76) N (Normal) Note: Responsible Observer: FREE T4 Free Thyroxine 600.7005 (D) Reviewed by Maya Barron MD on 03/23; All test results are final unless otherwise noted. Reported Physicians [facility] Ordered by Maya Barron MD on 03/23/2021 Collected: 03/23/2021 Reported: 03/23/2021 06:10 Reported Physicians See Note None Note: Reported Physicians:Ordering: Tramaine KaurothyAttending: Edvin TimothyCopyifan To: Maya Barron Reviewed by Maya Barron MD on 03/23; All test results are final unless otherwise noted. CRP, C-REACTIVE PROTEIN [facility] Ordered by Maya Barron MD on 03/23/2021 Collected: 03/23/2021 Reported: 03/23/2021 06:10 CRP SerPl-mCnc 18.9 MilliGramsPerLiter_[Mass_Concentration_Units] (0.0-5.0) H (High) Note: Responsible Observer: CRP C-Reacti ve Protein 401.4355 (H) Reviewed by Maya Barron MD on 03/23; All test results are final unless otherwise noted. Reported Physicians [facility] Ordered by Maya Barron MD on 03/23/2021 Collected: 03/23/2021 Reported: 03/23/2021 06:10 Reported Physicians See Note None Note: Reported Physicians:Ordering: Math is, TimothyAttending: Pardo, TimothyCopy To: Maya Barron Reviewed by Maya Barron MD on 03/23; All test results are final unless otherwise noted. MAGNESIUM [facility] Ordered by Maya Barron MD on 03/23/2021 Collected: 03/23/2021 Reported: 03/23/2021 06:10 Magnesium SerPl-mCnc 2.0 MilliGramsPerDeciLiter_[Mass_Concentration_Units] (1.3-2.7) N (Normal) Note: Responsible Observer: Magnesium Ma gnesium 400.3300 (G) Reviewed by Maya Barron MD on 03/23; All test results are final unless otherwise noted. SED RATE [facility] Ordered by Maya Barron MD on 03/23/2021 Collected: 03/23/2021 Reported: 03/23/2021 06:15 ESR Bld Qn Westrgrn 38 (0-20) H (High) Note: @[facility] manual test result: 38@by Claudia Tello at 03/23/21 0614.Responsible Observer: SED RATE SED RATE 100.6400 (C) Reviewed by Maya Barron MD on 03/23; All test results are final unless otherwise noted. Reported Physicians [facility] Ordered by Maya Barron MD on 03/23/2021 Collected: 03/23/2021 Reported: 03/23/2021 06:15 Reported Physicians See Note None Note: Reported Physicians:Ordering: Math is, TimothyAttending: Edvin, TimothyCopy To: Maya Barron Reviewed by Maya Barron MD on 03/23; All test results are final unless otherwise noted. TSH [facility] Ordered by Maya Barron MD on 03/23/2021 Collected: 03/23/2021 Reported: 03/23/2021 06:10 TSH SerPl DL<=0.005 mIU/L-aCnc 2.43 MicroInternationalUnitsPerMilliLiter_[Arbitrary_Con (0.35-5. 50) N (Normal) Note: Responsible Observer: TSH TSH 600 .7055 (D) Reviewed by Maya Barron MD on 03/23; All test results are final unless otherwise noted. Reported Physicians [facility] Ordered by Maya Barron MD on 03/23/2021 Collected: 03/23/2021 Reported: 03/23/2021 06:10 Reported Physicians See Note None Note: Reported Physicians:Ordering: Sara Kaurending: Adam Pardo To: Maya Barron Reviewed by Maya Barron MD on 03/23; All test results are final unless otherwise noted. Prothrombin Time & INR [facility] Ordered by Maya Barron MD on [...] results are final unless otherwise noted. LDH [facility] Ordered by Maya Barron MD on 03/23/2021 Collected: 03/23/2021 Reported: 03/23/2021 07:43 LDH SerPl-cCnc 251 enzyme_unit_per_liter (120-246) H (High) Note: Responsible Observer: LDH LDH 400 .2100 (G) Reviewed by Maya Barron MD on 03/23; All test results are final unless otherwise noted. Reported Physicians [facility] Ordered by Maya Barron MD on 03/23/2021 Collected: 03/23/2021 Reported: 03/23/2021 08:11 Reported Physicians See Note None Note: Reported Physicians:Ordering: Maya AlvarengaAttending: Hung Teranmitting: Dileep Teran To: Choco Pardo Reviewed by Maya Barron MD on 03/23; All test results are final unless otherwise noted. [facility] Ordered by Maya Barron MD on [...] unless otherwise noted. CBC W AUTO DIFF [facility] Ordered by Maya Barron MD on [...] Auto See Note (0-2) N (Normal) Note: [id number] Ob service observer chief: IG% IG% 100.1375 (B) Hct VFr Bld [...] results are final unless otherwise noted. VB12 [facility] Ordered by Maya Barron MD on 03/23/2021 Collected: 03/23/2021 Reported: 03/23/2021 06:46 Vitamin B12 388 PicoGramsPerMilliLiter_[Mass_Concentration_Units] (211-911) N (Normal) Note: Responsible Observer: Vitamin B12 Vitamin B12 500.1105 (C) Reviewed by Maya Barron MD on 03/23; All test results are final unless otherwise noted. Reported Physicians [facility] Ordered by Maya Barron MD on 03/23/2021 Collected: 03/23/2021 Reported: 03/23/2021 06:46 Reported Physicians See Note None Note: Reported Physicians:Ordering: Choco KaurAttending: Adam Pardo To: Maya Barron Reviewed by Maya Barron MD on 03/23; All test results are final unless otherwise noted. MAGNESIUM [facility] Ordered by Maya Barron MD on 03/23/2021 Collected: 03/23/2021 Reported: 03/23/2021 07:43 Magnesium SerPl-mCnc 2.1 MilliGramsPerDeciLiter_[Mass_Concentration_Units] (1.3-2.7) N (Normal) Note: Responsible Observer: Magnesium Ma gnesium 400.3300 (G) Reviewed by Maya Barron MD on 03/23; All test results are final unless otherwise noted. Reported Physicians [facility] Ordered by Maya Barron MD on 03/23/2021 Collected: 03/23/2021 Reported: 03/23/2021 07:44 Reported Physicians See Note None Note: Reported Physicians:Ordering: Maya AlvarengaAttending: Tramaine PardoothyManny To: Choco Pardo Reviewed by Maya Barron MD on 03/23; All test results are final unless otherwise noted. MANUAL DIFF [facility] Ordered by Maya Barron MD on [...] are final unless otherwise noted. Reported Physicians [facility] Ordered by Maya Barron MD on 03/21/2021 Collected: 03/21/2021 Reported: 03/21/2021 07:24 Reported Physicians See Note None Note: Reported Physicians:Ordering: Maya AlvarengaAttending: Maya BarronAdmitting: Maya Barron Reviewed by Maya Barron MD on 03/21; All test results are final unless otherwise noted. CBC W AUTO DIFF [facility] Ordered by Maya Barron MD on [...] Auto See Note (0-2) N (Normal) Note: [id number] Ob service observer chief: IG% IG% 100.1375 (B) Hct VFr Bld [...] Unit None Note: Responsible Observer: NRBC# NUCLEA VICTRO M RBC 100.1362 (A) NUCLEATED RED BLOOD CELL 0 percent None Note: Responsible Observer: NRBC% NRBC% 100.1360 (B) NOTES See Note None Note: @03/21/21 0654: MANUAL DIFF added. RFLXG = DIFF. Reviewed by Maya Barron MD on 03/21; All test results are final unless otherwise noted. Reported Physicians [facility] Ordered by Maya Barron MD on 03/21/2021 Collected: 03/21/2021 Reported: 03/21/2021 07:24 Reported Physicians See Note None Note: Reported Physicians:Ordering: Maya AlvarengaAttending: Maya BarronAdmitting: Maya Barron Reviewed by Maya Barron MD on 03/21; All test results are final unless otherwise noted. Cepheid SARS/FLU/RSV RT-PCR [facility] Ordered by Maya Barron MD on [...] by FDA under an EUA for use [facility]iReclamador wzumwjoqicmq33136-6WGQO-ejm CoV RNA Resp Ql ТАТЬЯНА+jbukmFNUDLEWKUIL-GQM-9 NOT [id number]-YVS-7 NOT ANUYDTMI48978-0KVUWI RNA Resp Ql ТАТЬЯНА+probeLNNFLUAInfluenza A Not Det [id number] A Not Pkpdottx79891-9ERTTO RNA Resp Ql ТАТЬЯНА+probeLNNINBInfluenza B Not [id number] B Not Spnqgysf51116- 2RSV RNA Resp Ql ТАТЬЯНА+probeLNNRSVRSV Not [id number] Not Detected Reviewed by Maya Barron MD on 03/20; All test results are final unless otherwise noted. Reported Physicians [facility] Ordered by Maya Barron MD on 03/20/2021 Collected: 03/20/2021 Reported: 03/20/2021 11:22 Reported Physicians See Note None Note: Reported Physicians:Ordering: Maya AlvarengaAttending: Maya BarronAdmitting: Maya Barron Reviewed by Maya Barron MD on 03/20; All test results are final unless otherwise noted. CBC W AUTO DIFF [facility] Ordered by Maya Barron MD on [...] Auto See Note (0-2) N (Normal) Note: [id number] Ob service observer chief: IG% IG% 100.1375 (B) Hct VFr Bld [...] are final unless otherwise noted. Reported Physicians [facility] Ordered by Maya Barron MD on 03/20/2021 Collected: 03/20/2021 Reported: 03/20/2021 10:18 Reported Physicians See Note None Note: Reported Physicians:Ordering: Maya AlvarengaAttending: Maya BarronAdmitting: Maya Barron Reviewed by Maya Barron MD on 03/20; All test results are final unless otherwise noted. Type and Screen [facility] Ordered by Maya Barron MD on [...] are final unless otherwise noted. Reported Physicians [facility] Ordered by Maya Barron MD on 03/20/2021 Collected: 03/20/2021 Reported: 03/20/2021 10:37 Reported Physicians See Note None Note: Reported Physicians:Ordering: Maya AlvarengaAttending: Maya BarronAdmitting: Maya Barron Reviewed by Maya Barron MD on 03/20; All test results are final unless otherwise noted. MANUAL DIFF [facility] Ordered by Maya Barron MD on [...] are final unless otherwise noted. Reported Physicians [facility] Ordered by Maya Barron MD on 03/20/2021 Collected: 03/20/2021 Reported: 03/20/2021 10:18 Reported Physicians See Note None Note: Reported Physicians:Ordering: Maya AlvarengaAttending: Maya BarronAdmitting: Maya Barron Reviewed by Maya Barron MD on 03/20; All test results are final unless otherwise noted. CBC W AUTO DIFF [facility] Ordered by Maya Barron MD on [...] Auto See Note (0-2) N (Normal) Note: [id number] Ob service observer chief: IG% IG% 100.1375 (B) Hct VFr Bld [...] results are final unless otherwise noted. TROPONIN [facility] Ordered by Maya Barron MD on 03/17/2021 Collected: 03/17/2021 Reported: 03/17/2021 15:52 Troponin I SerPl-mCnc Less Than 0.015 (0.00-0.09) N (Normal) Note: Less than 0.09 NG/ML Negative 0.10 - 0.77 NG/ML High Risk0.78 NG/ML or Greater PositiveThe WHO defined the cutoff (definition for diagnosis of AK)for this method as 0.78 ng/ml.Responsible Observer: Troponin I Troponin I 600.1101 (G) Reviewed by Maya Barron MD on 03/20; All test results are final unless otherwise noted. Reported Physicians [facility] Ordered by Maya Barron MD on 03/17/2021 Collected: 03/17/2021 Reported: 03/17/2021 15:52 Reported Physicians See Note None Note: Reported Physicians:Ordering: Dominic Landaverdeending: Alon Douglas To: Maya Barron Reviewed by Maya Barron MD on 03/20; All test results are final unless otherwise noted. Cepheid GBS RT-PCR [facility] Ordered by Cat Gutierrez RPA on 02/27/2021 Collected: 02/27/2021 Reported: 02/28/2021 12:50 Cepheid GBS RT-PCR See Note None Note: Cepheid Gene Xpert GBS LB assay is a RT-PCR with fluorogenicdetection of amplified DNA.Normal Result is " No Group B Strep detected "PREGBSNNo Group B strep [id number] Group B strep detected Reviewed by Cat Gutierrez RPA on 02/28; All test results are final unless otherwise noted. Reported Physicians [facility] Ordered by Cat Gutierrez RPA on 02/27/2021 Collected: 02/27/2021 Reported: 02/28/2021 12:50 Reported Physicians See Note None Note: Reported Physicians:Ordering: Cat ConwayAttending: Cat Gutierrez Reviewed by Cat Gutierrez RPA on 02/28; All test results are final unless otherwise noted. TROPONIN T [facility] Ordered by Maya Barron MD on 02/22/2021 Collected: 02/22/2021 Reported: 02/22/2021 00:25 TROPONIN T <0.01 NG/ML (0.00 - 0.10) None Note: TROPONIN T0.1 ng/ml Recommended as the clinical threshold value forTroponin T.Responsible Observer: (LBS) Reviewed by Maya Barron MD on 02/23; All test results are final unless otherwise noted. Reported Physicians [facility] Ordered by Maya Barron MD on 02/22/2021 Collected: 02/22/2021 Reported: 02/22/2021 00:26 Reported Physicians See Note None Note: Reported Physicians:Ordering: MARCELINO IN, ARIACARDOAttending: JESSEE MEJIAConsulting: Rubén BARRON To: JESSEE MEJIACopy To: JESSEE MEJIA Reviewed by Maya Barron MD on 02/23; All test results are final unless otherwise noted. CBC W/AUTOMATED DIFF [facility] Ordered by Maya Barron MD on [...] are final unless otherwise noted. Reported Physicians [facility] Ordered by Maya Barron MD on 02/21/2021 Collected: 02/21/2021 Reported: 02/21/2021 21:21 Reported Physicians See Note None Note: Reported Physicians:Ordering: MARCELINO INARIACARDOAttending: ARIA MEJIACARDOConsulting: Rubén BARRON To: ARIA MEJIACARDOCopy To: JESSEE MEJIA Reviewed by Maya Barron MD on 02/23; All test results are final unless otherwise noted. COMPREHENSIVE METABOLIC PANEL [facility] Ordered by Maya Barron MD [...] yrs None Note: Responsible Observer: (DW) ALBUMIN 3.4 G/DL (3.9 - 5.0) L [...] are final unless otherwise noted. Reported Physicians [facility] Ordered by Maya Barron MD on 02/21/2021 Collected: 02/21/2021 Reported: 02/21/2021 21:47 Reported Physicians See Note None Note: Reported Physicians:Ordering: TURR IN, RICCARDOAttending: TURRIN, RICCARDOConsulting: DAVIDSON BARRONYNCopyifan To: TURRIN, RICCARDOCopy To: ROBERTO, JESSEE Reviewed by Maya Barron MD on 02/23; All test results are final unless otherwise noted. TROPONIN T [facility] Ordered by Maya Barron MD on 02/21/2021 Collected: 02/21/2021 Reported: 02/21/2021 21:47 TROPONIN T <0.01 NG/ML (0.00 - 0.10) None Note: TROPONIN T0.1 ng/ml Recommended as the clinical threshold value forTroponin T.Responsible Observer: (DW) Reviewed by Maya Barron MD on 02/23; All test results are final unless otherwise noted. Reported Physicians [facility] Ordered by Maya Barron MD on 02/21/2021 Collected: 02/21/2021 Reported: 02/21/2021 21:47 Reported Physicians See Note None Note: Reported Physicians:Ordering: TURR IN, RICCARDOAttending: TURRIN, RICCARDOConsulting: MAYA BARRONCopyifan To: ROBERTO, RICCARDOCopy To: ARIA MEJIACARDO Reviewed by Maya Barron MD on 02/23; All test results are final unless otherwise noted. LIPASE SERUM [facility] Ordered by Maya Barron MD on 02/21/2021 Collected: 02/21/2021 Reported: 02/21/2021 21:42 LIPASE 22 U/L (13 - 60) None Note: Responsible Observer: (DW) Reviewed by Maya Barron MD on 02/23; All test results are final unless otherwise noted. Reported Physicians [facility] Ordered by Maya Barron MD on 02/21/2021 Collected: 02/21/2021 Reported: 02/21/2021 21:42 Reported Physicians See Note None Note: Reported Physicians:Ordering: MARCELINO IN, JESSEEAttending: JESSEE MEJIAConsulting: Rubén BARRON To: Saleem MEJIA To: JESSEE MEJIA Reviewed by Maya Barron MD on 02/23; All test results are final unless otherwise noted. 1HR GESTATIONAL GLUCOSE (50gm) [facility] Ordered by Maya Barron MD on [...] are final unless otherwise noted. Reported Physicians [facility] Ordered by Maya Barron MD on 01/30/2021 Collected: 01/30/2021 Reported: 01/30/2021 14:23 Reported Physicians See Note None Note: Reported Physicians:Ordering: Maya AlvarengaAttending: Maya Barron Reviewed by Maya Barron MD on 01/31; All test results are final unless otherwise noted. URINALYSIS [facility] Ordered by Maya Barron MD on 01/30/2021 Collected: 01/30/2021 Reported: 01/30/2021 12:35 Urobilinogen Ur Ql See Note (0.2-1 EU/dl) None Note: 0.2 EU/dl0.2 EU/[id number] E U/dlResponsible Observer: UROBILINOGEN UROBILINOGEN 300.4500 (C) RBC # Ur Strip NEGATIVE (NEGATIVE) None Note: Responsible Observer: BLOOD BLOOD 300.4650 (C) Prot Ur Ql Strip See Note (NEGATIVE) None Note: [id number] ble Observer: PROTEIN PROTEIN 300.3750 (C) Ketones Ur Ql Strip See Note (NEGATIVE) None Note: 15 mg/dL15 mg/bWA304059263143 mg/d LResponsible Observer: KETONE KETONE 300.3900 (C) Bilirub Ur Ql Strip.auto See Note (NEGATIVE) None Note: [id number] EResponsible Observer: BILIRUBIN BILIRUBIN 300.4550 (C) Glucose Ur Strip.auto-mCnc NEGATIVE (NEGATIVE) None Note: Responsible Observer: GLUCOSE GLUC OSE 300.3850 (C) Appearance Ur See Note (CLEAR) None Note: CLEARCLEARLCLEARResponsible Observ er: APPEARANCE APPEARANCE 300.3400 (A) Color Ur See Note None Note: YELLOWYELLOWLYELLOWResponsible Obs erver: COLOR COLOR 300.3300 (A) Leukocyte esterase Ur Ql Strip See Note (NEGATIVE) None Note: [id number] E@DO MICRO!!!!Responsible Observer: LEUKOCYTES LEUKOCYTES 300.3575 (C) Nitrite Ur Ql Strip See Note (NEGATIVE) None Note: [id number] EResponsible Observer: NITRITE NITRITE 300.3650 (B) pH [...] are final unless otherwise noted. Reported Physicians [facility] Ordered by Maya Barron MD on 01/30/2021 Collected: 01/30/2021 Reported: 01/30/2021 12:36 Reported Physicians See Note None Note: Reported Physicians:Ordering: Maya AlvarengaAttending: Maya Barron Reviewed by Maya Barron MD on 01/31; All test results are final unless otherwise noted. ADD ON MICROSCOPIC [facility] Ordered by Maya Barron MD on 01/30/2021 Collected: 01/30/2021 Reported: 01/30/2021 12:35 ADD ON MICROSCOPIC See Note (0-5) H (High) Note: NOTES OTHER/NOT INTERPRETED Bacteria UrnS Ql Micro MODERATE AMOUNT Bacteria UrnS Ql Micro MODERATE AMOUNT Bacteria UrnS Ql Micro L Bacteria UrnS Ql Micro Bacteria UrnS Ql Micro Bacteria UrnS Ql Micro Bacteria UrnS Ql Micro [id number] Bacteria UrnS Ql Micro Bacteria UrnS Ql [...] Ql Micro Mucous Threads UrnS Ql Micro [id number] Mucous Threads UrnS Ql Micro Mucous Threads UrnS Ql Micro LARGE AMOUNT WBC # Ur Manual 15-20 @01/30/21 1230: UA W/ MICRO added. RFLXG = UMIC.Method of Collection:: VoidedResponsible Observer: WBC WBC 300.5000 (A) Reviewed by Maya Barron MD on 01/31; All test results are final unless otherwise noted. Reported Physicians [facility] Ordered by Maya Barron MD on 01/30/2021 Collected: 01/30/2021 Reported: 01/30/2021 12:36 Reported Physicians See Note None Note: Reported Physicians:Ordering: Maya AlvarengaAttending: Maya Barron Reviewed by Maya Barron MD on 01/31; All test results are final unless otherwise noted. Urine culture [facility] Ordered by Maya Barron MD on 01/30/2021 Collected: 01/30/2021 Reported: 02/01/2021 06:50 Urine culture result No growth None Reviewed by Maya Braron MD on 02/02; All test results are final unless otherwise noted. Reported Physicians [facility] Ordered by Maya Barron MD on 01/30/2021 Collected: 01/30/2021 Reported: 02/01/2021 06:50 Reported Physicians See Note None Note: Reported Physicians:Ordering: Maya AlvarengaAttending: Maya Barron Reviewed by Maya Barron MD on 02/02; All test results are final unless otherwise noted. TROPONIN [facility] Ordered by Maya Barron MD on 01/11/2021 Collected: 01/11/2021 Reported: 01/11/2021 17:30 Troponin I SerPl-mCnc Less Than 0.015 (0.00-0.09) N (Normal) Note: Less than 0.09 NG/ML Negative 0.10 - 0.77 NG/ML High Risk0.78 NG/ML or Greater PositiveThe WHO defined the cutoff (definition for diagnosis of AK)for this method as 0.78 ng/ml.Responsible Observer: Troponin I Troponin I 600.1101 (G) NOTES See Note None Note: Test(s)[place] [address] Reviewed by Maya Barron MD on 01/12; All test results are final unless otherwise noted. Reported Physicians [facility] Ordered by Maya Barron MD on 01/11/2021 Collected: 01/11/2021 Reported: 01/11/2021 17:30 Reported Physicians See Note None Note: Reported Physicians:Ordering: Les Vanegastending: Fady Raza To: Maya Barron Reviewed by Maya Barron MD on 01/12; All test results are final unless otherwise noted. CBC W AUTO DIFF [facility] Ordered by Maya Barron MD on [...] Auto See Note (0-2) N (Normal) Note: 0.90.0D32601222147.9Responsible Ob service observer chief: IG% IG% 100.1375 (B) Hct VFr Bld [...] test results are final unless otherwise noted. [facility] Ordered by Maya Barron MD on [...] N (Normal) Note: @Reenter manual test result: 135@Jia Dennis at 01/11/21 1729.Responsible Observer: Sodium Sodium 400.1100 [...] NOTES See Note None Note: Test(s)[place] [address] Reviewed by Maya Barron MD on 01/12; All test results are final unless otherwise noted. Reported Physicians [facility] Ordered by Maya Barron MD on 01/11/2021 Collected: 01/11/2021 Reported: 01/11/2021 17:30 Reported Physicians See Note None Note: Reported Physicians:Ordering: Les Vanegastending: Fady Raza To: Maya Barron Reviewed by Maya Barron MD on 01/12; All test results are final unless otherwise noted. TSH w/ reflex to Free T4 [facility] Ordered by Maya Barron MD on 01/11/2021 Collected: 01/11/2021 Reported: 01/11/2021 17:30 TSH SerPl DL<=0.005 mIU/L-aCnc 1.05 MicroInternationalUnitsPerMilliLiter_[Arbitrary_Con (0.35-5. 50) N (Normal) Note: Responsible Observer: TSH TSH 600 .7060 (D) NOTES See Note None Note: Test(s)[place] [address] Reviewed by Maya Barron MD on 01/12; All test results are final unless otherwise noted. Reported Physicians [facility] Ordered by Maya Barron MD on 01/11/2021 Collected: 01/11/2021 Reported: 01/11/2021 17:30 Reported Physicians See Note None Note: Reported Physicians:Ordering: Les Vanegastending: Fady Raza To: Maya Barron Reviewed by Maya Barron MD on 01/12; All test results are final unless otherwise noted. ADD ON MICROSCOPIC [facility] Ordered by Maya Barron MD on [...] Ql Micro Amorph Sed UrnS Ql Micro [id number] Amorph Sed UrnS Ql Micro Amorph Sed UrnS Ql Micro LARGE AMT URATES Bacteria UrnS Ql Micro SMALL AMOUNT Bacteria UrnS Ql Micro SMALL AMOUNT Bacteria UrnS Ql Micro L Bacteria UrnS Ql Micro Bacteria UrnS Ql Micro Bacteria UrnS Ql Micro Bacteria UrnS Ql Micro [id number] Bacteria UrnS Ql Micro Bacteria UrnS Ql Micro SMALL AMOUNT Cells UrnS Micro MANY Cells UrnS Micro MANY Cells UrnS Micro MANY Cells UrnS Micro L Cells UrnS Micro Cells UrnS Micro Cells UrnS Micro Cells UrnS Micro Cells UrnS Micro WBC # Ur Manual 3-5 Reason for ordering culture: Abnormal findings UA@12/28/206: UA W/ MICRO added. RFLXG = UMIC CIF .Method of Collection:: VoidedResponsible Observer: WBC WBC 300.5005 (A) Reviewed by Maya Barron MD on 01/01; All test results are final unless otherwise noted. Reported Physicians [facility] Ordered by Maya Barron MD on 12/28/2020 Collected: 12/28/2020 Reported: 12/28/2020 21:56 Reported Physicians See Note None Note: Reported Physicians:Ordering: Sana Recinosending: Sammie Ann To: Maya Barron Reviewed by Maya Barron MD on 01/01; All test results are final unless otherwise noted. UA W/ CULTURE IF ABNORMAL [facility] Ordered by Maya Barron MD on 12/28/2020 Collected: 12/28/2020 Reported: 12/28/2020 21:56 Urobilinogen Ur Ql See Note (0.2-1 EU/dl) None Note: 0.2 EU/dl0.2 EU/[id number] E U/dlResponsible Observer: UROBILINOGEN UROBILINOGEN 300.4500 (C) RBC # Ur Strip NEGATIVE (NEGATIVE) None Note: Responsible Observer: BLOOD BLOOD 300.4652 (C) Prot Ur Ql Strip See Note (NEGATIVE) None Note: [id number] EResponsible Observer: PROTEIN PROTEIN 300.3750 (C) Ketones Ur Ql Strip See Note (NEGATIVE) None Note: [id number] EResponsible Observer: KETONE KETONE 300.3900 (C) Bilirub Ur Ql Strip.auto See Note (NEGATIVE) None Note: [id number] EResponsible Observer: BILIRUBIN BILIRUBIN 300.4550 (C) Glucose Ur Strip.auto-mCnc 250 mg/dl (NEGATIVE) None Note: Responsible Observer: GLUCOSE GLUC OSE 300.3850 (C) Appearance Ur See Note (CLEAR) A (Abnormal) Note: TURBIDTURBIDLTURBIDResponsible Obs erver: APPEARANCE APPEARANCE 300.3400 (A) Color Ur See Note None Note: YELLOWYELLOWLYELLOWResponsible Obs erver: COLOR COLOR 300.3330 (A) Leukocyte esterase Ur Ql Strip See Note (NEGATIVE) None Note: [id number]@DO MICR O!!!!A Culture has been added to this specimen per established criteriaResponsible Observer: LEUKOCYTES LEUKOCYTES 300.3576 (C) Nitrite Ur Ql Strip See Note (NEGATIVE) None Note: [id number] EResponsible Observer: NITRITE NITRITE 300.3652 (B) pH [...] Reason for ordering culture: Abnor mal findings UA@12/28/202155: UA W/ MICRO added. RFLXG = UMIC CIF.Method of Collection:: Voided Reviewed by Maya Barron MD on 01/01; All test results are final unless otherwise noted. Urine culture [facility] Ordered by Maya Barron MD on 12/28/2020 Collected: 12/28/2020 Reported: 12/30/2020 08:03 Urine culture result 25,000 CFU/ML Lactobacilli no senst done None NOTES See Note None Note: @12/28/202155: Urine culture adde d. RFLXG = CULT.ADD. Reviewed by Maya Barron MD on 01/01; All test results are final unless otherwise noted. Reported Physicians [facility] Ordered by Maya Barron MD on 12/28/2020 Collected: 12/28/2020 Reported: 12/30/2020 08:03 Reported Physicians See Note None Note: Reported Physicians:Ordering: Sana Recinosending: Sammie Ann To: Maya Barron Reviewed by Maya Barron MD on 01/01; All test results are final unless otherwise noted. Cepheid SARS/FLU/RSV RT-PCR [facility] Ordered by Maya Barron MD on [...] by FDA under an EUA for [facility] rxyxdxblymay52582-7DQGA-nov CoV RNA Resp Ql ТАТЬЯНА+hdggmVJVFXWIZLAA-TEL-9 NOT [id number]-QNP-7 NOT ENZWYWUC44774-0OOTIQ RNA Resp Ql ТАТЬЯНА+probeLNNFLUAInfluenza A Not Det [id number] A Not Rnyfioxg19503-8TESPD RNA Resp Ql ТАТЬЯНА+probeLNNINBInfluenza B Not IkbxevhqI4312309881Odisbxkji B Not Cmigsscw38930- 2RSV RNA Resp Ql ТАТЬЯНА+probeLNNRSVRSV Not [id number] Not Detected Reviewed by Maya Barron MD on 01/01; All test results are final unless otherwise noted. Reported Physicians [facility] Ordered by Maya Braron MD on 12/28/2020 Collected: 12/28/2020 Reported: 12/28/2020 22:13 Reported Physicians See Note None Note: Reported Physicians:Ordering: Sana Recinosending: Sammie Ann To: Maya Barron Reviewed by Maya Barron MD on 01/01; All test results are final unless otherwise noted. CBC W AUTO DIFF [facility] Ordered by Maya Barron MD on [...] Auto See Note (0-2) N (Normal) Note: [id number] Ob service observer chief: IG% IG% 100.1375 (B) Hct VFr Bld [...] test results are final unless otherwise noted. [facility] Ordered by Maya Barron MD on [...] test results are final unless otherwise noted. [facility] Ordered by Maya Barron MD on 12/28/2020 Collected: 12/28/2020 Reported: 12/28/2020 21:08 Lactic w Rfx (if elevated) 1.5 MilliMolesPerLiter_[Substance_Concentration_Units] (0.5-2.0) N (Normal) Note: Responsible Observer: Lactic Acid Lactic Acid 400.2831 (G) Reviewed by Maya Barron MD on 01/03; All test results are final unless otherwise noted. Blood Culture (Incl Anaerobic)-1 [facility] Ordered by Maya Barron MD on 12/28/2020 Collected: 12/28/2020 Reported: 01/02/2021 20:38 Bacteria Bld Cult See Note None Note: NG5DNo growth.M0ZW1LWX GROWTH AFTE R 5 DAYS Reviewed by Maya Barron MD on 01/03; All test results are final unless otherwise noted. Blood Culture (Incl Anaerobic)-2 [facility] Ordered by Maya Barron MD on 12/28/2020 Collected: 12/28/2020 Reported: 01/02/2021 20:38 Bacteria Bld Cult See Note None Note: NG5DNo growth.X8WP2QGQ GROWTH AFTE R 5 DAYS Reviewed by Maya Barron MD on 01/03; All test results are final unless otherwise noted. Reported Physicians [facility] Ordered by Maya Barron MD on 12/28/2020 Collected: 12/28/2020 Reported: 01/02/2021 20:38 Reported Physicians See Note None Note: Reported Physicians:Ordering: Sana Recinosending: Sammie Ann To: Maya Barron Reviewed by Maya Barron MD on 01/03; All test results are final unless otherwise noted. LIPASE SERUM [facility] Ordered by Maya Barron MD on 12/28/2020 Collected: 12/28/2020 Reported: 12/28/2020 04:05 LIPASE 33 U/L (13 - 60) None Note: Responsible Observer: (MLE) Reviewed by Maya Barron MD on 12/29; All test results are final unless otherwise noted. Reported Physicians [facility] Ordered by Maya Barron MD on 12/28/2020 Collected: 12/28/2020 Reported: 12/28/2020 04:06 Reported Physicians See Note None Note: Reported Physicians:Ordering: MARCELINO IN, ARIACARDOAttending: ARIA MEJIACARDOConsulting: Rubén BARRON To: OMI MEJIADOCopy To: JESSEE MEJIA Reviewed by Maya Barron MD on 12/29; All test results are final unless otherwise noted. TROPONIN T [facility] Ordered by Maya Barron MD on 12/28/2020 Collected: 12/28/2020 Reported: 12/28/2020 04:05 TROPONIN T <0.01 NG/ML (0.00 - 0.10) None Note: TROPONIN T0.1 ng/ml Recommended as the clinical threshold value forTroponin T.Responsible Observer: (MLE) Reviewed by Maya Barron MD on 12/29; All test results are final unless otherwise noted. Reported Physicians [facility] Ordered by Maya Barron MD on 12/28/2020 Collected: 12/28/2020 Reported: 12/28/2020 04:05 Reported Physicians See Note None Note: Reported Physicians:Ordering: TURR IN, RICCARDOAttending: TURRIN, RICCARDOConsulting: Rubén BARRON To: HOLLYRIN, RICCARDOCopy To: HOLLYRIN, JESSEE Reviewed by Maya Barron MD on 12/29; All test results are final unless otherwise noted. D-DIMER [facility] Ordered by Maya Barron MD on 12/28/2020 Collected: 12/28/2020 Reported: 12/28/2020 03:46 D-DIMER QUANT 0.36 ug/mL (0.27 - 0.50) None Note: Responsible Observer: (LBS) Reviewed by Maya Barron MD on 12/29; All test results are final unless otherwise noted. Reported Physicians [facility] Ordered by Maya Barron MD on 12/28/2020 Collected: 12/28/2020 Reported: 12/28/2020 03:46 Reported Physicians See Note None Note: Reported Physicians:Ordering: TURR IN, RICCARDOAttending: TURRIN, RICCARDOConsulting: Rubén BARRON To: TURRIN, RICCARDOCopy To: TURRIN, JESSEE Reviewed by Maya Barron MD on 12/29; All test results are final unless otherwise noted. PT/PTT [facility] Ordered by Maya Barron MD on [...] Thrombosis, Pulmonary Embolus, Tissue heart valves, Acute [place] Atrial Fibrillation, Valvular heart disease and recurrent Systemic Embolism. - International Normalized Ratio (INR): 2.5 - 3.5 for Mechanical Prosthetic valve.Responsible Observer: (LBS) Reviewed by Maya Barron MD on 12/29; All test results are final unless otherwise noted. Reported Physicians [facility] Ordered by Maya Barron MD on 12/28/2020 Collected: 12/28/2020 Reported: 12/28/2020 03:46 Reported Physicians See Note None Note: Reported Physicians:Ordering: MARCELINO IN, RICCARDOAttending: ROBERTO, RICCARDOConsulting: Rubén BARRON To: JESSEE MEJIACopy To: JESSEE MEJIA Reviewed by Maya Barron MD on 12/29; All test results are final unless otherwise noted. CBC W/AUTOMATED DIFF [facility] Ordered by Maya Barron MD on [...] are final unless otherwise noted. Reported Physicians [facility] Ordered by Maya Barron MD on 12/28/2020 Collected: 12/28/2020 Reported: 12/28/2020 03:34 Reported Physicians See Note None Note: Reported Physicians:Ordering: HOLLYR IN, RICCARDOAttending: HOLLYRIN, RICCARDOConsulting: Rubén BARRON To: TURRIN, RICCARDOCopy To: ARIA MEJIACARDO Reviewed by Maya Barron MD on 12/29; All test results are final unless otherwise noted. COMPREHENSIVE METABOLIC PANEL [facility] Ordered by Maya Barron MD [...] Note: Responsible Observer: (MLE) Reviewed by Maya Barrno MD on 12/29; All test results are final unless otherwise noted. Reported Physicians [facility] Ordered by Maya Barron MD on 12/28/2020 Collected: 12/28/2020 Reported: 12/28/2020 04:05 Reported Physicians See Note None Note: Reported Physicians:Ordering: TURR IN, RICCARDOAttending: TURRIN, RICCARDOConsulting: Rubén BARRON To: Saleem MEJIA To: JESSEE MEJIA Reviewed by Maya Barron MD on 12/29; All test results are final unless otherwise noted. Cepheid SARS/FLU/RSV RT-PCR [facility] Ordered by Maya Barron MD on [...] by FDA under an EUA for [facility] [id number]-jif CoV RNA Resp Ql ТАТЬЯНА+ibyzaLXCJGTXQSPA-XKO-9 NOT [id number]-UZN-8 NOT LEWCVMGA64663-4LICFS RNA Resp Ql ТАТЬЯНА+probeLNNFLUAInfluenza A Not Det [id number] A Not Bxmojggr09309-1XSRYN RNA Resp Ql ТАТЬЯНА+probeLNNINBInfluenza B Not [id number] B Not Lvfvpexx97944- 2RSV RNA Resp Ql ТАТЬЯНА+probeLNNRSVRSV Not [id number] Not Detected Reviewed by Maya Barron MD on 12/25; All test results are final unless otherwise noted. Reported Physicians [facility] Ordered by Maya Barron MD on 12/23/2020 Collected: 12/23/2020 Reported: 12/23/2020 13:41 Reported Physicians See Note None Note: Reported Physicians:Ordering: Aj Ferreiraending: Jos Rivas To: Maya Barron Reviewed by Maya Barron MD on 12/25; All test results are final unless otherwise noted. ADD ON MICROSCOPIC [facility] Ordered by Maya Barron MD on 12/23/2020 Collected: 12/23/2020 Reported: 12/23/2020 08:51 ADD ON MICROSCOPIC See Note (0-5) None Note: NOTES OTHER/NOT INTERPRETED Bacteria UrnS Ql Micro MODERATE AMOUNT Bacteria UrnS Ql Micro MODERATE AMOUNT Bacteria UrnS Ql Micro L Bacteria UrnS Ql Micro Bacteria UrnS Ql Micro Bacteria UrnS Ql Micro Bacteria UrnS Ql Micro [id number] Bacteria UrnS Ql Micro Bacteria UrnS Ql [...] 0831: UA W/ MICRO added. RFLXG = IC CIF.Method of Collection:: VoidedResponsible Observer: RBC RBC 300.4900 (A) Reviewed by Maya Barron MD on 12/25; All test results are final unless otherwise noted. Reported Physicians [facility] Ordered by Maya Barron MD on 12/23/2020 Collected: 12/23/2020 Reported: 12/23/2020 08:52 Reported Physicians See Note None Note: Reported Physicians:Ordering: Cristino FerreiraAttending: Jos Rivas To: Maya Barron Reviewed by Maya Barron MD on 12/25; All test results are final unless otherwise noted. UA W/ CULTURE IF ABNORMAL [facility] Ordered by Maya Barron MD on 12/23/2020 Collected: 12/23/2020 Reported: 12/23/2020 08:51 Urobilinogen Ur Ql See Note (0.2-1 EU/dl) None Note: 1 EU/dl1 EU/[id number] EU/dlRe sponsible Observer: UROBILINOGEN UROBILINOGEN 300.4500 (C) RBC # Ur Strip NEGATIVE (NEGATIVE) None Note: Responsible Observer: BLOOD BLOOD 300.4652 (C) Prot Ur Ql Strip See Note (NEGATIVE) None Note: [id number] ble Observer: PROTEIN PROTEIN 300.3750 (C) Ketones Ur Ql Strip See Note (NEGATIVE) None Note: [id number] EResponsible Observer: KETONE KETONE 300.3900 (C) Bilirub Ur Ql Strip.auto See Note (NEGATIVE) None Note: [id number] EResponsible Observer: BILIRUBIN BILIRUBIN 300.4550 (C) Glucose Ur Strip.auto-mCnc NEGATIVE (NEGATIVE) None Note: Responsible Observer: GLUCOSE GLUC OSE 300.3850 (C) Appearance Ur See Note (CLEAR) A (Abnormal) Note: TURBIDTURBIDLTURBIDResponsible Obs erver: APPEARANCE APPEARANCE 300.3400 (A) Color Ur See Note None Note: YELLOWYELLOWLYELLOWResponsible Obs erver: COLOR COLOR 300.3330 (A) Leukocyte esterase Ur Ql Strip See Note (NEGATIVE) None Note: [id number]@DO MICR O!!!!A Culture has been added to this specimen per established criteriaResponsible Observer: LEUKOCYTES LEUKOCYTES 300.3576 (C) Nitrite Ur Ql Strip See Note (NEGATIVE) None Note: [id number] EResponsible Observer: NITRITE NITRITE 300.3652 (B) pH [...] are final unless otherwise noted. Urine culture [facility] Ordered by Maya Barron MD on 12/23/2020 Collected: 12/23/2020 Reported: 12/24/2020 10:07 Urine culture result See Note None Note: Less than 10,000 CFU/MLStaph spp, Strep spp, Corynebacterium sppProbable contaminants no senst done NOTES See Note None Note: @12/23/20 0851: Urine culture addchandler escoto. RFLXG = CULT.ADD. Reviewed by Maya Barron MD on 12/25; All test results are final unless otherwise noted. Reported Physicians [facility] Ordered by Maya Barron MD on 12/23/2020 Collected: 12/23/2020 Reported: 12/24/2020 10:07 Reported Physicians See Note None Note: Reported Physicians:Ordering: Aj Ferreiraending: Jos Rivas To: Maya Barron Reviewed by Maya Barron MD on 12/25; All test results are final unless otherwise noted. MAGNESIUM [facility] Ordered by Maya Barron MD on 12/23/2020 Collected: 12/23/2020 Reported: 12/23/2020 09:11 Magnesium SerPl-mCnc 2.1 MilliGramsPerDeciLiter_[Mass_Concentration_Units] (1.3-2.7) N (Normal) Note: Responsible Observer: Magnesium Ma gnesium 400.3300 (G) NOTES See Note None Note: ADD-ON Reviewed by Maya Barron MD on 12/25; All test results are final unless otherwise noted. Reported Physicians [facility] Ordered by Maya Barron MD on 12/23/2020 Collected: 12/23/2020 Reported: 12/23/2020 09:11 Reported Physicians See Note None Note: Reported Physicians:Ordering: Cristino FerreiraAttending: Jos Rivas To: Maya Barron Reviewed by Maya Barron MD on 12/25; All test results are final unless otherwise noted. D-DIMER [facility] Ordered by Maya Barron MD on [...] are final unless otherwise noted. Reported Physicians [facility] Ordered by Maya Barron MD on 12/23/2020 Collected: 12/23/2020 Reported: 12/23/2020 09:39 Reported Physicians See Note None Note: Reported Physicians:Ordering: Aj Ferreiraending: Jos Rivas To: Maya Barron Reviewed by Maya Barron MD on 12/25; All test results are final unless otherwise noted. CBC W AUTO DIFF [facility] Ordered by Maya Barron MD on [...] Auto See Note (0-2) N (Normal) Note: [id number] Ob service observer chief: IG% IG% 100.1375 (B) Hct VFr Bld [...] test results are final unless otherwise noted. [facility] Ordered by Maya Barron MD on [...] are final unless otherwise noted. Reported Physicians [facility] Ordered by Maya Barron MD on 12/23/2020 Collected: 12/23/2020 Reported: 12/23/2020 08:29 Reported Physicians See Note None Note: Reported Physicians:Ordering: Aj Ferreiraending: Jos Rivas To: Maya Barron Reviewed by Maya Barron MD on 12/25; All test results are final unless otherwise noted. TROPONIN [facility] Ordered by Maya Barron MD on 12/23/2020 Collected: 12/23/2020 Reported: 12/23/2020 09:39 Troponin I SerPl-mCnc Less Than 0.015 (0.00-0.09) N (Normal) Note: Less than 0.09 NG/ML Negative 0.10 - 0.77 NG/ML High Risk0.78 NG/ML or Greater PositiveThe WHO defined the cutoff (definition for diagnosis of AK)for this method as 0.78 ng/ml.Responsible Observer: Troponin I Troponin I 600.1101 (G) NOTES See Note None Note: ADD-ON Reviewed by Maya Barron MD on 12/25; All test results are final unless otherwise noted. Reported Physicians [facility] Ordered by Maya Barron MD on 12/23/2020 Collected: 12/23/2020 Reported: 12/23/2020 09:39 Reported Physicians See Note None Note: Reported Physicians:Ordering: Cristino FerreiraAttending: Jos Rivas To: Maya Barron Reviewed by Maya Barron MD on 12/25; All test results are final unless otherwise noted. TSH HIGHLY SENSITIVE [facility] Ordered by Maya Barron MD on 12/16/2020 Collected: 12/16/2020 Reported: 12/16/2020 17:28 TSH 1.41 uIU/mL (0.47 - 5.01) None Note: Responsible Observer: (ABIOLA) Reviewed by Maya Barron MD on 12/18; All test results are final unless otherwise noted. Reported Physicians [facility] Ordered by Maya Barron MD on 12/16/2020 Collected: 12/16/2020 Reported: 12/16/2020 17:28 Reported Physicians See Note None Note: Reported Physicians:Ordering: Sunshine ALONSOending: ALLYN PAPPASConopaling: Rubén BARRON To: Miguel Gonsalez To: ALLYN PAPPAS Reviewed by Maya Barron MD on 12/18; All test results are final unless otherwise noted. TROPONIN T [facility] Ordered by Maya Barron MD on 12/16/2020 Collected: 12/16/2020 Reported: 12/16/2020 16:30 TROPONIN T <0.01 NG/ML (0.00 - 0.10) None Note: TROPONIN T0.1 ng/ml Recommended as the clinical threshold value forTroponin T.Responsible Observer: (DW) Reviewed by Maya Barron MD on 12/18; All test results are final unless otherwise noted. Reported Physicians [facility] Ordered by Maya Barron MD on 12/16/2020 Collected: 12/16/2020 Reported: 12/16/2020 16:30 Reported Physicians See Note None Note: Reported Physicians:Ordering: VENUS ALONSOAttending: ALLYN PAPPASConopaling: Rubén BARRON To: Miguel Gonsalez To: ALLYN PAPPAS Reviewed by Maya Barron MD on 12/18; All test results are final unless otherwise noted. COMPREHENSIVE METABOLIC PANEL [facility] Ordered by Maya Barron MD [...] (6.3 - 8.2) None Note: Responsible Observer: (DW) Reviewed by Maya Barron MD on 12/18; All test results are final unless otherwise noted. Reported Physicians [facility] Ordered by Maya Barron MD on 12/16/2020 Collected: 12/16/2020 Reported: 12/16/2020 16:30 Reported Physicians See Note None Note: Reported Physicians:Ordering: Sunshine ALONSOending: ALLYN PAPPASConsulting: Rubén BARRON To: Miguel Gonsalez To: ALLYN PAPPAS Reviewed by Maya Barron MD on 12/18; All test results are final unless otherwise noted. CBC W/AUTOMATED DIFF [facility] Ordered by Maya Barron MD on [...] are final unless otherwise noted. Reported Physicians [facility] Ordered by Maya Barron MD on 12/16/2020 Collected: 12/16/2020 Reported: 12/16/2020 16:00 Reported Physicians See Note None Note: Reported Physicians:Ordering: Sunshine ALONSOending: ALLYN PAPPASConopaling: Rubén BARRON To: Miguel Gonsalez To: ALLYN PAPPAS Reviewed by Maya Barron MD on 12/18; All test results are final unless otherwise noted. LIPASE SERUM [facility] Ordered by Maya Barron MD on 12/16/2020 Collected: 12/16/2020 Reported: 12/16/2020 16:29 LIPASE 27 U/L (13 - 60) None Note: Responsible Observer: (DW) Reviewed by Maya Barron MD on 12/18; All test results are final unless otherwise noted. Reported Physicians [facility] Ordered by Maya Barron MD on 12/16/2020 Collected: 12/16/2020 Reported: 12/16/2020 16:29 Reported Physicians See Note None Note: Reported Physicians:Ordering: VENUS ALONSOAttending: ALLYN PAPPASConopaling: Rubén BARRON To: Miguel Gonsalez To: ALLYN PAPPAS Reviewed by Maya Barron MD on 12/18; All test results are final unless otherwise noted. PT/PTT [facility] Ordered by Maya Barron MD on [...] Thrombosis, Pulmonary Embolus, Tissue heart valves, Acute AK Atrial Fibrillation, Valvular heart disease and recurrent Systemic Embolism. - International Normalized Ratio (INR): 2.5 - 3.5 for Mechanical Prosthetic valve.Responsible Observer: (DW) Reviewed by Maya Barron MD on 12/18; All test results are final unless otherwise noted. Reported Physicians [facility] Ordered by Maya Barron MD on 12/16/2020 Collected: 12/16/2020 Reported: 12/16/2020 16:30 Reported Physicians See Note None Note: Reported Physicians:Ordering: Sunshine ALONSOending: ALLYN PAPPASConsulting: Rubén BARRON To: Miguel Gonsalez To: ALLYN PAPPAS Reviewed by Maya Barron MD on 12/18; All test results are final unless otherwise noted. CBC W AUTO DIFF [facility] Ordered by Maya Barron MD on [...] Auto See Note (0-2) N (Normal) Note: [id number] Ob service observer chief: IG% IG% 100.1375 (B) Hct VFr Bld [...] results are final unless otherwise noted. PT/PTT [facility] Ordered by Maya Barron MD on [...] results are final unless otherwise noted. CMP [facility] Ordered by Maya Barron MD on [...] are final unless otherwise noted. Reported Physicians [facility] Ordered by Maya Barron MD on 12/13/2020 Collected: 12/13/2020 Reported: 12/13/2020 19:02 Reported Physicians See Note None Note: Reported Physicians:Ordering: Conchis Omerending: Kevin Orozco To: Maya Barron Reviewed by Maya Barron MD on 12/15; All test results are final unless otherwise noted. TSH [facility] Ordered by Maya Barron MD on 12/13/2020 Collected: 12/13/2020 Reported: 12/13/2020 19:02 TSH SerPl DL<=0.005 mIU/L-aCnc 1.02 MicroInternationalUnitsPerMilliLiter_[Arbitrary_Con (0.35-5. 50) N (Normal) Note: Responsible Observer: TSH TSH 600 .7055 (D) Reviewed by Maya Barron MD on 12/15; All test results are final unless otherwise noted. Reported Physicians [facility] Ordered by Maya Barron MD on 12/13/2020 Collected: 12/13/2020 Reported: 12/13/2020 19:02 Reported Physicians See Note None Note: Reported Physicians:Ordering: Edgar Omerttending: Kevin Orozco To: Maya Barron Reviewed by Maya Barron MD on 12/15; All test results are final unless otherwise noted. TROPONIN [facility] Ordered by Maya Barron MD on 12/13/2020 Collected: 12/13/2020 Reported: 12/13/2020 19:02 Troponin I SerPl-mCnc Less Than 0.015 (0.00-0.09) N (Normal) Note: Less than 0.09 NG/ML Negative 0.10 - 0.77 NG/ML High Risk0.78 NG/ML or Greater PositiveThe WHO defined the cutoff (definition for diagnosis of AK)for this method as 0.78 ng/ml.Responsible Observer: Troponin I Troponin I 600.1101 (G) Reviewed by Maya Barron MD on 12/15; All test results are final unless otherwise noted. Reported Physicians [facility] Ordered by Maya Barron MD on 12/13/2020 Collected: 12/13/2020 Reported: 12/13/2020 19:02 Reported Physicians See Note None Note: Reported Physicians:Ordering: Conchis Omerending: Kevin Orozco To: Maya Barron Reviewed by Maya Barron MD on 12/15; All test results are final unless otherwise noted. UA W/ CULTURE IF ABNORMAL [facility] Ordered by Maya Barron MD on 12/13/2020 Collected: 12/13/2020 Reported: 12/13/2020 18:32 Urobilinogen Ur Ql See Note (0.2-1 EU/dl) None Note: 0.2 EU/dl0.2 EU/[id number] E U/dlResponsible Observer: UROBILINOGEN UROBILINOGEN 300.4500 (C) RBC # Ur Strip NEGATIVE (NEGATIVE) None Note: Responsible Observer: BLOOD BLOOD 300.4652 (C) Prot Ur Ql Strip See Note (NEGATIVE) None Note: [id number] EResponsible Observer: PROTEIN PROTEIN 300.3750 (C) Ketones Ur Ql Strip See Note (NEGATIVE) None Note: [id number] EResponsible Observer: KETONE KETONE 300.3900 (C) Bilirub Ur Ql Strip.auto See Note (NEGATIVE) None Note: [id number] EResponsible Observer: BILIRUBIN BILIRUBIN 300.4550 (C) Glucose Ur Strip.auto-mCnc NEGATIVE (NEGATIVE) None Note: Responsible Observer: GLUCOSE GLUC OSE 300.3850 (C) Appearance Ur See Note (CLEAR) None Note: CLEARCLEARLCLEARResponsible Observ er: APPEARANCE APPEARANCE 300.3400 (A) Color Ur See Note None Note: YELLOWYELLOWLYELLOWResponsible Obs erver: COLOR COLOR 300.3330 (A) Leukocyte esterase Ur Ql Strip See Note (NEGATIVE) None Note: [id number]@DO MICR O!!!!A Culture has been added to this specimen per established criteriaResponsible Observer: LEUKOCYTES LEUKOCYTES 300.3576 (C) Nitrite Ur Ql Strip See Note (NEGATIVE) None Note: [id number] EResponsible Observer: NITRITE NITRITE 300.3652 (B) pH [...] are final unless otherwise noted. Urine culture [facility] Ordered by Maya Barron MD on 12/13/2020 Collected: 12/13/2020 Reported: 12/14/2020 13:24 Bacteria Ur Cult See Note None Note: NGNo growth.L1NG NOTES See Note None Note: @12/13/20 1832: Urine culture adde d. RFLXG = CULT.ADD. Reviewed by Maya Barron MD on 12/15; All test results are final unless otherwise noted. Reported Physicians [facility] Ordered by Maya Barron MD on 12/13/2020 Collected: 12/13/2020 Reported: 12/14/2020 13:24 Reported Physicians See Note None Note: Reported Physicians:Ordering: Conchis Omerending: Kevin Orozco To: Maya Barron Reviewed by Maya Barron MD on 12/15; All test results are final unless otherwise noted. ADD ON MICROSCOPIC [facility] Ordered by Maya Barron MD on 12/13/2020 Collected: 12/13/2020 Reported: 12/13/2020 18:32 ADD ON MICROSCOPIC See Note (0-5) None Note: NOTES OTHER/NOT INTERPRETED Bacteria UrnS Ql Micro MODERATE AMOUNT Bacteria UrnS Ql Micro MODERATE AMOUNT Bacteria UrnS Ql Micro L Bacteria UrnS Ql Micro Bacteria UrnS Ql Micro Bacteria UrnS Ql Micro Bacteria UrnS Ql Micro [id number] Bacteria UrnS Ql Micro Bacteria UrnS Ql [...] are final unless otherwise noted. Reported Physicians [facility] Ordered by Maya Barron MD on 12/13/2020 Collected: 12/13/2020 Reported: 12/13/2020 18:33 Reported Physicians See Note None Note: Reported Physicians:Ordering: Conchis Omerending: Kevin Orozco To: Maya Barron Reviewed by Maya Barron MD on 12/15; All test results are final unless otherwise noted. TROPONIN T [facility] Ordered by Maya Barron MD on 12/09/2020 Collected: 12/09/2020 Reported: 12/09/2020 01:32 TROPONIN T <0.01 NG/ML (0.00 - 0.10) None Note: TROPONIN T0.1 ng/ml Recommended as the clinical threshold value forTroponin T.Responsible Observer: (AB) Reviewed by Maya Barron MD on 12/12; All test results are final unless otherwise noted. Reported Physicians [facility] Ordered by Maya Barron MD on 12/09/2020 Collected: 12/09/2020 Reported: 12/09/2020 01:32 Reported Physicians See Note None Note: Reported Physicians:Ordering: MARQUISE TOMLINSON CAttending: MARQUISE SOTOConsulting: Rubén BARRON To: MARQUISE SOTOCopyifan To: MARQUISE SOTO Reviewed by Maya Barron MD on 12/12; All test results are final unless otherwise noted. LIPASE SERUM [facility] Ordered by Maya Barron MD on 12/08/2020 Collected: 12/08/2020 Reported: 12/08/2020 22:32 LIPASE 33 U/L (13 - 60) None Note: Responsible Observer: (AB) Reviewed by Maya Barron MD on 12/12; All test results are final unless otherwise noted. Reported Physicians [facility] Ordered by Maya Barron MD on 12/08/2020 Collected: 12/08/2020 Reported: 12/08/2020 22:32 Reported Physicians See Note None Note: Reported Physicians:Ordering: MARQUISE TOMLINSON CAttending: MARQUISE SOTOConsulting: Rubén BARRON To: Clare SOTO To: MARQUISE SOTO Reviewed by Maya Barron MD on 12/12; All test results are final unless otherwise noted. TROPONIN T [facility] Ordered by Maya Barron MD on 12/08/2020 Collected: 12/08/2020 Reported: 12/08/2020 22:36 TROPONIN T <0.01 NG/ML (0.00 - 0.10) None Note: TROPONIN T0.1 ng/ml Recommended as the clinical threshold value forTroponin T.Responsible Observer: (AB) Reviewed by Maya Barron MD on 12/12; All test results are final unless otherwise noted. Reported Physicians [facility] Ordered by Maya Barron MD on 12/08/2020 Collected: 12/08/2020 Reported: 12/08/2020 22:36 Reported Physicians See Note None Note: Reported Physicians:Ordering: MARQUISE TOMLINSON CAttending: MARQUISE SOTOConsulting: Rubén BARRON To: Clare SOTO To: MARQUISE SOTO Reviewed by Maya Barron MD on 12/12; All test results are final unless otherwise noted. COMPREHENSIVE METABOLIC PANEL [facility] Ordered by Maya Barron MD [...] are final unless otherwise noted. Reported Physicians [facility] Ordered by Maya Barron MD on 12/08/2020 Collected: 12/08/2020 Reported: 12/08/2020 22:36 Reported Physicians See Note None Note: Reported Physicians:Ordering: MARQUISE TOMLINSON CAttending: MARQUISE SOTOConsulting: MAYA BARRONCopyifan To: MARQUISE SOTOCopyifan To: MARQUISE SOTO Reviewed by Maya Barron MD on 12/12; All test results are final unless otherwise noted. CBC W AUTO DIFF [facility] Ordered by Maya Barron MD on [...] Auto See Note (0-2) N (Normal) Note: [id number] Ob service observer chief: IG% IG% 100.1375 (B) Hct VFr Bld [...] test results are final unless otherwise noted. [facility] Ordered by Maya Barron MD on [...] results are final unless otherwise noted. D-DIMER [facility] Ordered by Maya Barron MD on [...] are final unless otherwise noted. Reported Physicians [facility] [facility] Ordered by Maya Barron MD on 12/01/2020 Collected: 12/01/2020 Reported: 12/01/2020 18:19 Reported Physicians See Note None Note: Reported Physicians:Ordering: Sara Kaurending: Adam Pardo To: Maya Barron Reviewed by Maya Barron MD on 12/04; All test results are final unless otherwise noted. TROPONIN [facility] Ordered by Maya Barron MD on 12/01/2020 Collected: 12/01/2020 Reported: 12/01/2020 18:18 Troponin I SerPl-mCnc Less Than 0.015 (0.00-0.09) N (Normal) Note: Less than 0.09 NG/ML Negative 0.10 - 0.77 NG/ML High Risk0.78 NG/ML or Greater PositiveThe WHO defined the cutoff (definition for diagnosis of AK)for this method as 0.78 ng/ml.Responsible Observer: Troponin I Troponin I 600.1101 (G) Reviewed by Maya Barron MD on 12/04; All test results are final unless otherwise noted. Reported Physicians [facility] Ordered by Maya Barron MD on 12/01/2020 Collected: 12/01/2020 Reported: 12/01/2020 18:19 Reported Physicians See Note None Note: Reported Physicians:Ordering: Sara Kaurending: Adam Pardo To: Maya Barron Reviewed by Maya Barron MD on 12/04; All test results are final unless otherwise noted. Cepheid CT/NG RT-PCR [facility] Ordered by Maya Barron MD on [...] may result in failure to detect the targetorganisms.74800-6N trach DNA Vag Ql ТАТЬЯНА+probeLNCHLAMNC. trachomatis NOT [id number]. trachomatis NOT ZDGRGCWZ29979-1G gonorrhoea rRNA Vag Ql ТАТЬЯНА+probeLNNEIGNN.gonorrhoeae NOT [id number].gonorrhoeae NOT DETECTED Reviewed by Maya Barron MD on 11/29; All test results are final unless otherwise noted. Reported Physicians [facility] Ordered by Maya Barron MD on 11/29/2020 Collected: 11/29/2020 Reported: 11/29/2020 07:03 Reported Physicians See Note None Note: Reported Physicians:Ordering: Estela SamuelAttending: Vianey Up To: Maya Barron Reviewed by Maya Barron MD on 11/29; All test results are final unless otherwise noted. AFFIRM [facility] Ordered by Maya Barron MD on 11/29/2020 Collected: 11/29/2020 Reported: 11/30/2020 13:21 Dionna species DNA Probe NOT DETECTED (NOT DETECTED) None Note: THIS TEST WAS PERFORMED AT:[facility] [id number] MERATI,CLAUDYesponsible Observer: Dionna DNA Dionna species DNA Probe [id number] 913.2350 ([facility]) Gardnerella DNA Probe DETECTED (NOT DETECTED) H (High) Note: Increased levels of G. vaginalis m ay not be significantin the absence of signs and symptoms of bacterialvaginosis.Responsible Observer: Gardnerella DNA Gardnerella DNA Probe [id number] 913.2345 ([facility]) Trichomonas DNA Probe NOT DETECTED (NOT DETECTED) None Note: Responsible Observer: Trichomonas DNA Trichomonas DNA Probe [id number] 913.2340 ([facility]) Reviewed by Maya Barron MD on 12/01; All test results are final unless otherwise noted. Reported Physicians [facility] Ordered by Maya Barron MD on 11/29/2020 Collected: 11/29/2020 Reported: 11/30/2020 13:21 Reported Physicians See Note None Note: Reported Physicians:Ordering: Gideon Samuelending: Vianey Up To: Maya Barron Reviewed by Maya Barron MD on 12/01; All test results are final unless otherwise noted. UA W/ CULTURE IF ABNORMAL [facility] Ordered by Maya Barron MD on 11/29/2020 Collected: 11/29/2020 Reported: 11/29/2020 04:49 Urobilinogen Ur Ql See Note (0.2-1 EU/dl) None Note: 0.2 EU/dl0.2 EU/[id number] E U/dlResponsible Observer: UROBILINOGEN UROBILINOGEN 300.4500 (C) RBC # Ur Strip NEGATIVE (NEGATIVE) None Note: Responsible Observer: BLOOD BLOOD 300.4652 (C) Prot Ur Ql Strip See Note (NEGATIVE) None Note: [id number] EResponsible Observer: PROTEIN PROTEIN 300.3750 (C) Ketones Ur Ql Strip See Note (NEGATIVE) None Note: [id number] EResponsible Observer: KETONE KETONE 300.3900 (C) Bilirub Ur Ql Strip.auto See Note (NEGATIVE) None Note: [id number] EResponsible Observer: BILIRUBIN BILIRUBIN 300.4550 (C) Glucose Ur Strip.auto-mCnc NEGATIVE (NEGATIVE) None Note: Responsible Observer: GLUCOSE GLUC OSE 300.3850 (C) Appearance Ur See Note (CLEAR) None Note: CLEARCLEARLCLEARResponsible Observ er: APPEARANCE APPEARANCE 300.3400 (A) Color Ur See Note None Note: YELLOWYELLOWLYELLOWResponsible Obs erver: COLOR COLOR 300.3330 (A) Leukocyte esterase Ur Ql Strip See Note (NEGATIVE) None Note: [id number]@DO MICR O!!!!A Culture has been added to this specimen per established criteriaResponsible Observer: LEUKOCYTES LEUKOCYTES 300.3576 (C) Nitrite Ur Ql Strip See Note (NEGATIVE) None Note: [id number] EResponsible Observer: NITRITE NITRITE 300.3652 (B) pH [...] are final unless otherwise noted. Urine culture [facility] Ordered by Maya Barron MD on 11/29/2020 Collected: 11/29/2020 Reported: 11/30/2020 07:23 Bacteria Ur Cult See Note None Note: NGNo growth.L1NG NOTES See Note None Note: @11/29/20 0450: Urine culture adde d. RFLXG = CULT.ADD. Reviewed by Maya Barron MD on 12/01; All test results are final unless otherwise noted. Reported Physicians [facility] Ordered by Maya Barron MD on 11/29/2020 Collected: 11/29/2020 Reported: 11/30/2020 07:23 Reported Physicians See Note None Note: Reported Physicians:Ordering: Estela SamuelAttending: Vianey Up To: Maya Barron Reviewed by Maya Barron MD on 12/01; All test results are final unless otherwise noted. ADD ON MICROSCOPIC [facility] Ordered by Maya Barron MD on [...] are final unless otherwise noted. Reported Physicians [facility] Ordered by Maya Barron MD on 11/29/2020 Collected: 11/29/2020 Reported: 11/29/2020 04:51 Reported Physicians See Note None Note: Reported Physicians:Ordering: Estela SamuelAttending: Vianey Up To: Maya Barron Reviewed by Maya Barron MD on 11/29; All test results are final unless otherwise noted. TROPONIN [facility] Ordered by Maya Barron MD on 11/20/2020 Collected: 11/20/2020 Reported: 11/20/2020 20:04 Troponin I SerPl-mCnc Less Than 0.015 (0.00-0.09) N (Normal) Note: Less than 0.09 NG/ML Negative 0.10 - 0.77 NG/ML High Risk0.78 NG/ML or Greater PositiveThe WHO defined the cutoff (definition for diagnosis of AK)for this method as 0.78 ng/ml.Responsible Observer: Troponin I Troponin I 600.1101 (G) Reviewed by Maya Barron MD on 11/22; All test results are final unless otherwise noted. Reported Physicians [facility] Ordered by Maya Barron MD on 11/20/2020 Collected: 11/20/2020 Reported: 11/20/2020 20:05 Reported Physicians See Note None Note: Reported Physicians:Ordering: Les Vanegasding: Fady Raza To: Maya Barron Reviewed by Maya Barron MD on 11/22; All test results are final unless otherwise noted. Cepheid SARS/FLU/RSV RT-PCR [facility] Ordered by Maya Barron MD on [...] by FDA under an EUA for use byNeuroneticshoriNatural Cleaners Coloradolyuepdowionn93127-7NDFC-drg CoV RNA Resp Ql ТАТЬЯНА+sgpnlDBFWFNWZBVF-GMJ-1 NOT [id number]-YXK-7 NOT LKIKBSSF18369-1GEOSU RNA Resp Ql ТАТЬЯНА+probeLNNFLUAInfluenza A Not Det [id number] A Not Czyrfvdt74110-7VURRY RNA Resp Ql ТАТЬЯНА+probeLNNINBInfluenza B Not [id number] B Not Uehgqrxu27134- 2RSV RNA Resp Ql ТАТЬЯНА+probeLNNRSVRSV Not [id number] Not Detected Reviewed by Maya Barron MD on 11/20; All test results are final unless otherwise noted. Reported Physicians [facility] Ordered by Maya Barron MD on 11/18/2020 Collected: 11/18/2020 Reported: 11/18/2020 23:58 Reported Physicians See Note None Note: Reported Physicians:Ordering: Aj Snowending: Jos Castellanos To: Maya Barron Reviewed by Maya Barron MD on 11/20; All test results are final unless otherwise noted. URINE DRUG SCREEN -([facility]) [facility] Ordered by Maya Barron MD on 11/17/2020 Collected: 11/17/2020 Reported: 11/17/2020 14:19 PCP Ur Ql Scn>25 ng/mL See Note (Cutoff 25) None Note: [id number] E@Reenter manual test result: NEGATIVE@by Claudia Tello at 11/17/20 1414.Responsible Observer: PCP Urine Phencyclidine (PCP) Scrn 400.5120 (A) THC Ur Ql Scn>50 ng/mL See Note (Cutoff 50) None Note: [id number] EResponsible Observer: Marijuana (THC) Ur Marijuana (THC) Screen 400.5110 (A) Benzodiaz Ur Ql Scn See Note (Cutoff 150) None Note: [id number] E@Reenter manual test result: NEGATIVE@by Claudia Tello at 11/17/20 1418.Responsible Observer: Benzodiazepines Urine Benzodiazepines Screen 400.5170 (A) Opiates Ur Ql Scn See Note (Cutoff 100) None Note: [id number] E@Reenter manual test result: NEGATIVE@by Claudia Tello at 11/17/20 1418.Responsible Observer: Opiates Urine Opiates Screen 400.5150 (A) Tricyclics Ur Ql Scn See Note (Cutoff 300) None Note: [id number] E@Reenter manual test result: NEGATIVE@by Claudia Tello at 11/17/20 1418.Responsible Observer: TCA Ur Tricyclic Antidepressants 400.5180 (A) Cocaine Ur Ql Scn See Note (Cutoff 150) None Note: [id number] E@Reenter manual test result: NEGATIVE@by Claudia Tello at 11/17/20 1417.Responsible Observer: Cocaine Urine Cocaine Screen 400.5130 (A) Propoxyph+Nor Ur Ql Scn See Note (Cutoff 300) None Note: [id number] E@Reenter manual test result: NEGATIVE@by Claudia Tello at 11/17/20 1418.Responsible Observer: Propoxyphene Urine Propoxyphene Screen 400.5220 (A) Methadone Ur Ql Scn See Note (Cutoff 200) None Note: [id number] E@Reenter manual test result: NEGATIVE@by Claudia Tello at 11/17/20 1418.Responsible Observer: Methadone Urine Methadone Screen 400.5190 (A) Methamphet Ur Ql Scn See Note (Cutoff 500) None Note: [id number] E@Reenter manual test result: NEGATIVE@by Claudia Tello at 11/17/20 1417.Responsible Observer: Methamphetamine Urine Methamphetamines Screen 400.5140 (A) oxyCODONE Ur Ql Scn See Note (Cutoff 100) None Note: [id number] E@Reenter manual test result: NEGATIVE@by Claudia Tello at 11/17/20 1418.Responsible Observer: Oxycodone Urine Oxycodone Screen 400.5210 (A) Buprenorphine Ur Ql See Note (Cutoff 10) None Note: [id number] E@Reenter manual test result: NEGATIVE@by Claudia Tello at 11/17/20 1419.Responsible Observer: Buprenorphine Urine Buprenorphine Screen 400.5230 (A) Amphetamines Ur Ql Scn>500 ng/mL See Note (Cutoff 500) None Note: [id number] E@Reenter manual test result: NEGATIVE@by Claudia Tello at 11/17/20 1418.Responsible Observer: Amphetamines Urine Amphetamines Screen 400.5160 (A) Barbiturates Ur Ql Scn>200 ng/mL See Note (Cutoff 200) None Note: [id number] E@Reenter manual test result: NEGATIVE@by Claudia Tello at 11/17/20 1418.Responsible Observer: Barbiturates Urine Barbiturates 400.5200 (A) Reviewed by Maya Barron MD on 11/20; All test results are final unless otherwise noted. IRON [facility] Ordered by Maya Barron MD on 11/17/2020 Collected: 11/17/2020 Reported: 11/17/2020 14:34 Iron SerPl-mCnc 39 (50-170) L (Low) Note: Iron values may be falsely elevate d in serum samples frompatients treated with anticoagulants (e.g., hemodialysispatients)Responsible Observer: Iron Level Iron Level 400.9002 (A) Reviewed by Maya Barron MD on 11/20; All test results are final unless otherwise noted. Reported Physicians [facility] Ordered by Maya Barron MD on 11/17/2020 Collected: 11/17/2020 Reported: 11/17/2020 14:34 Reported Physicians See Note None Note: Reported Physicians:Ordering: Maya AlvarengaAttending: Maya Barron Reviewed by Maya Barron MD on 11/20; All test results are final unless otherwise noted. CBC W AUTO DIFF [facility] Ordered by Maya Barron MD on [...] Auto See Note (0-2) N (Normal) Note: [id number] Ob service observer chief: IG% IG% 100.1375 (B) Hct VFr Bld [...] results are final unless otherwise noted. HA1C [facility] Ordered by Maya Barron MD on [...] blood glucose control.* High risk of developing adjunct faculty for medical terminology complications such asretinopathy, nephropathy, neuropathy, cardiopathy, etc. [...] test results are final unless otherwise noted. [facility] Ordered by Maya Barron MD on [...] final unless otherwise noted. Vitamin D 25-OH [facility] Ordered by Maya Barron MD on [...] VIT D, (D2,D3), LC/MS/MS is recommended: ordercode 27245 (patients >2yrs).See Note 1Note 1For additional information, please refer tohttp://education.[facility]/faq/XBQ553(This link is being provided for informational/educational purposes only.)THIS TEST WAS PERFORMED AT:[facility] [address]CLAUDY ONEILLesponsible Observer: Vitamin D 25-OH Vitamin D 25-Hydroxy [id number] 914.1810 ([facility]) Reviewed by Maya Barron MD on 11/20; All test results are final unless otherwise noted. Reported Physicians [facility] Ordered by Maya Barron MD on 11/17/2020 Collected: 11/17/2020 Reported: 11/18/2020 08:17 Reported Physicians See Note None Note: Reported Physicians:Ordering: Maya AlvarengaAttending: Maya Barron Reviewed by Maya Barron MD on 11/20; All test results are final unless otherwise noted. FREE T4 (LAB) [facility] Ordered by Maya Barron MD on 11/17/2020 Collected: 11/17/2020 Reported: 11/17/2020 14:34 T4 Free SerPl-mCnc 0.78 NanoGramsPerDeciLiter_[Mass_Concentration_Units] (0.89-1.76) L (Low) Note: Responsible Observer: FREE T4 Free Thyroxine 600.7005 (D) Reviewed by Maya Barron MD on 11/20; All test results are final unless otherwise noted. Reported Physicians [facility] Ordered by Maya Barron MD on 11/17/2020 Collected: 11/17/2020 Reported: 11/17/2020 14:34 Reported Physicians See Note None Note: Reported Physicians:Ordering: Maya AlvarengaAttending: Maya Barron Reviewed by Maya Barron MD on 11/20; All test results are final unless otherwise noted. TSH [facility] Ordered by Maya Barron MD on 11/17/2020 Collected: 11/17/2020 Reported: 11/17/2020 14:34 TSH SerPl DL<=0.005 mIU/L-aCnc 1.38 MicroInternationalUnitsPerMilliLiter_[Arbitrary_Con (0.35-5. 50) N (Normal) Note: Responsible Observer: TSH TSH 600 .7055 (D) Reviewed by Maya Barron MD on 11/20; All test results are final unless otherwise noted. Reported Physicians [facility] Ordered by Maya Barron MD on 11/17/2020 Collected: 11/17/2020 Reported: 11/17/2020 14:34 Reported Physicians See Note None Note: Reported Physicians:Ordering: Maya AlvarengaAttending: Maya Barron Reviewed by Maya Barron MD on 11/20; All test results are final unless otherwise noted. CBC W AUTO DIFF [facility] Ordered by Maya Barron MD on [...] Auto See Note (0-2) N (Normal) Note: [id number] Ob service observer chief: IG% IG% 100.1375 (B) Hct VFr Bld [...] test results are final unless otherwise noted. [facility] Ordered by Maya Barron MD on [...] results are final unless otherwise noted. D-DIMER [facility] Ordered by Maya Barron MD on [...] are final unless otherwise noted. Reported Physicians [facility] Ordered by Maya Barron MD on 10/23/2020 Collected: 10/23/2020 Reported: 10/23/2020 01:22 Reported Physicians See Note None Note: Reported Physicians:Ordering: Yoli NapolesAttending: Charles Silva To: Maya Barron Reviewed by Maya Barron MD on 10/23; All test results are final unless otherwise noted. TROPONIN [facility] Ordered by Maya Barron MD on 10/23/2020 Collected: 10/23/2020 Reported: 10/23/2020 01:03 Troponin I SerPl-mCnc Less Than 0.015 (0.00-0.09) N (Normal) Note: Less than 0.09 NG/ML Negative 0.10 - 0.77 NG/ML High Risk0.78 NG/ML or Greater PositiveThe WHO defined the cutoff (definition for diagnosis of AK)for this method as 0.78 ng/ml.Responsible Observer: Troponin I Troponin I 600.1101 (G) Reviewed by Maya Barron MD on 10/23; All test results are final unless otherwise noted. Reported Physicians [facility] Ordered by Maya Barron MD on 10/23/2020 Collected: 10/23/2020 Reported: 10/23/2020 01:03 Reported Physicians See Note None Note: Reported Physicians:Ordering: Yoli NapolesAttending: Charles Silva To: Maya Barron Reviewed by Maya Barron MD on 10/23; All test results are final unless otherwise noted. BHCG Quantitative [facility] Ordered by Maya Barron MD on 10/23/2020 Collected: 10/23/2020 Reported: 10/23/2020 01:21 B-HCG SerPl-aCnc 16076 MilliInternationalUnitsPerMilliLiter_[Arbitrary_Con (0-10) H (High) Note: @Instrument will [...] are final unless otherwise noted. Reported Physicians [facility] Ordered by Maya Barron MD on 10/23/2020 Collected: 10/23/2020 Reported: 10/23/2020 01:21 Reported Physicians See Note None Note: Reported Physicians:Ordering: Yoli NapolesAttending: Charles Silva To: Maya Barron Reviewed by Maya Barron MD on 10/23; All test results are final unless otherwise noted. FREE T4 (LAB) [facility] Ordered by Maya Barron MD on 10/21/2020 Collected: 10/21/2020 Reported: 10/21/2020 15:17 T4 Free SerPl-mCnc 0.97 NanoGramsPerDeciLiter_[Mass_Concentration_Units] (0.89-1.76) N (Normal) Note: Responsible Observer: FREE T4 Free Thyroxine 600.7005 (D) Reviewed by Maya Barron MD on 10/23; All test results are final unless otherwise noted. Reported Physicians [facility] Ordered by Maya Barron MD on 10/21/2020 Collected: 10/21/2020 Reported: 10/21/2020 15:17 Reported Physicians See Note None Note: Reported Physicians:Ordering: Choco KaurAttending: Adam Pardo To: Maya Barron Reviewed by Maya Barron MD on 10/23; All test results are final unless otherwise noted. TSH [facility] Ordered by Maya Barron MD on 10/21/2020 Collected: 10/21/2020 Reported: 10/21/2020 15:17 TSH SerPl DL<=0.005 mIU/L-aCnc 1.40 MicroInternationalUnitsPerMilliLiter_[Arbitrary_Con (0.35-5. 50) N (Normal) Note: Responsible Observer: TSH TSH 600 .7055 (D) Reviewed by Maya Barron MD on 10/23; All test results are final unless otherwise noted. Reported Physicians [facility] Ordered by Maya Barron MD on 10/21/2020 Collected: 10/21/2020 Reported: 10/21/2020 15:17 Reported Physicians See Note None Note: Reported Physicians:Ordering: Sara Kaurending: Adam Pardo To: Maya Barron Reviewed by Maya Barron MD on 10/23; All test results are final unless otherwise noted. UA W/ CULTURE IF ABNORMAL [facility] Ordered by Maya Barron MD on 10/19/2020 Collected: 10/19/2020 Reported: 10/19/2020 16:31 Urobilinogen Ur Ql See Note (0.2-1 EU/dl) None Note: 0.2 EU/dl0.2 EU/[id number] E U/dlResponsible Observer: UROBILINOGEN UROBILINOGEN 300.4500 (C) RBC # Ur Strip NEGATIVE (NEGATIVE) None Note: Responsible Observer: BLOOD BLOOD 300.4652 (C) Prot Ur Ql Strip See Note (NEGATIVE) None Note: [id number] EResponsible Observer: PROTEIN PROTEIN 300.3750 (C) Ketones Ur Ql Strip See Note (NEGATIVE) None Note: [id number] EResponsible Observer: KETONE KETONE 300.3900 (C) Bilirub Ur Ql Strip.auto See Note (NEGATIVE) None Note: [id number] EResponsible Observer: BILIRUBIN BILIRUBIN 300.4550 (C) Glucose Ur Strip.auto-mCnc 100 mg/dl (NEGATIVE) None Note: Responsible Observer: GLUCOSE GLUC OSE 300.3850 (C) Appearance Ur See Note (CLEAR) None Note: CLEARCLEARLCLEARResponsible Observ er: APPEARANCE APPEARANCE 300.3400 (A) Color Ur See Note None Note: YELLOWYELLOWLYELLOWResponsible Obs erver: COLOR COLOR 300.3330 (A) Leukocyte esterase Ur Ql Strip See Note (NEGATIVE) None Note: [id number] EResponsible Observer: LEUKOCYTES LEUKOCYTES 300.3576 (C) Nitrite Ur Ql Strip See Note (NEGATIVE) None Note: [id number] EResponsible Observer: NITRITE NITRITE 300.3652 (B) pH [...] are final unless otherwise noted. Reported Physicians [facility] Ordered by Maya Barron MD on 10/19/2020 Collected: 10/19/2020 Reported: 10/19/2020 16:31 Reported Physicians See Note None Note: Reported Physicians:Ordering: Les Vanegas AAttending: Fady Raza To: Maya Barron Reviewed by Maya Barron MD on 10/20; All test results are final unless otherwise noted. URINE DRUG SCREEN -([facility]) [facility] Ordered by Maya Barron MD on 10/19/2020 Collected: 10/19/2020 Reported: 10/19/2020 16:40 PCP Ur Ql Scn>25 ng/mL See Note (Cutoff 25) None Note: [id number] E@Reenter manual test result: NEGATIVE@by Jia Lentz at 10/19/20 1639.Responsible Observer: PCP Urine Phencyclidine (PCP) Scrn 400.5120 (A) THC Ur Ql Scn>50 ng/mL See Note (Cutoff 50) None Note: [id number] EResponsible Observer: Marijuana (THC) Ur Marijuana (THC) Screen 400.5110 (A) Benzodiaz Ur Ql Scn See Note (Cutoff 150) None Note: [id number] E@Reenter manual test result: NEGATIVE@by Jia Lentz at 10/19/20 1640.Responsible Observer: Benzodiazepines Urine Benzodiazepines Screen 400.5170 (A) Opiates Ur Ql Scn See Note (Cutoff 100) None Note: [id number] E@Reenter manual test result: NEGATIVE@by Jia Lentz at 10/19/20 1640.Responsible Observer: Opiates Urine Opiates Screen 400.5150 (A) Tricyclics Ur Ql Scn See Note (Cutoff 300) None Note: [id number] E@Reenter manual test result: NEGATIVE@by Jia Lentz at 10/19/20 1640.Responsible Observer: TCA Ur Tricyclic Antidepressants 400.5180 (A) Cocaine Ur Ql Scn See Note (Cutoff 150) None Note: [id number] E@Reenter manual test result: NEGATIVE@by Jia Lentz at 10/19/20 1640.Responsible Observer: Cocaine Urine Cocaine Screen 400.5130 (A) Propoxyph+Nor Ur Ql Scn See Note (Cutoff 300) None Note: [id number] E@Reenter manual test result: NEGATIVE@by Jia Lentz at 10/19/20 1640.Responsible Observer: Propoxyphene Urine Propoxyphene Screen 400.5220 (A) Methadone Ur Ql Scn See Note (Cutoff 200) None Note: [id number] E@Reenter manual test result: NEGATIVE@by Jia Lentz at 10/19/20 1640.Responsible Observer: Methadone Urine Methadone Screen 400.5190 (A) Methamphet Ur Ql Scn See Note (Cutoff 500) None Note: [id number] E@Reenter manual test result: NEGATIVE@by Jia Lentz at 10/19/20 1640.Responsible Observer: Methamphetamine Urine Methamphetamines Screen 400.5140 (A) oxyCODONE Ur Ql Scn See Note (Cutoff 100) None Note: [id number] E@Reenter manual test result: NEGATIVE@by Jia Lentz at 10/19/20 1640.Responsible Observer: Oxycodone Urine Oxycodone Screen 400.5210 (A) Buprenorphine Ur Ql See Note (Cutoff 10) None Note: [id number] E@Reenter manual test result: NEGATIVE@by Jia Lentz at 10/19/20 1640.Responsible Observer: Buprenorphine Urine Buprenorphine Screen 400.5230 (A) Amphetamines Ur Ql Scn>500 ng/mL See Note (Cutoff 500) None Note: [id number] E@Reenter manual test result: NEGATIVE@by Jia Lentz at 10/19/20 1640.Responsible Observer: Amphetamines Urine Amphetamines Screen 400.5160 (A) Barbiturates Ur Ql Scn>200 ng/mL See Note (Cutoff 200) None Note: [id number] E@Reenter manual test result: NEGATIVE@by Jia Lentz at 10/19/20 1640.Responsible Observer: Barbiturates Urine Barbiturates 400.5200 (A) Reviewed by Maya Barron MD on 10/20; All test results are final unless otherwise noted. Reported Physicians [facility] Ordered by Maya Barron MD on 10/19/2020 Collected: 10/19/2020 Reported: 10/19/2020 16:40 Reported Physicians See Note None Note: Reported Physicians:Ordering: Les Vanegasding: Fady Raza To: Maya Barron Reviewed by Maya Barron MD on 10/20; All test results are final unless otherwise noted. TROPONIN [facility] Ordered by Maya Barron MD on 10/19/2020 Collected: 10/19/2020 Reported: 10/19/2020 16:10 Troponin I SerPl-mCnc Less Than 0.015 (0.00-0.09) N (Normal) Note: Less than 0.09 NG/ML Negative 0.10 - 0.77 NG/ML High Risk0.78 NG/ML or Greater PositiveThe WHO defined the cutoff (definition for diagnosis of AK)for this method as 0.78 ng/ml.Responsible Observer: Troponin I Troponin I 600.1101 (G) Reviewed by Maya Barron MD on 10/20; All test results are final unless otherwise noted. Reported Physicians [facility] Ordered by Maya Barron MD on 10/19/2020 Collected: 10/19/2020 Reported: 10/19/2020 16:10 Reported Physicians See Note None Note: Reported Physicians:Ordering: Les Vanegas: Fady Raza To: Maya Barron Reviewed by Maya Barron MD on 10/20; All test results are final unless otherwise noted. TSH w/ reflex to Free T4 [facility] Ordered by Maya Barron MD on 10/19/2020 Collected: 10/19/2020 Reported: 10/19/2020 16:08 TSH SerPl DL<=0.005 mIU/L-aCnc 1.66 MicroInternationalUnitsPerMilliLiter_[Arbitrary_Con (0.35-5. 50) N (Normal) Note: Responsible Observer: TSH TSH 600 .7060 (D) Reviewed by Maya Barron MD on 10/20; All test results are final unless otherwise noted. Reported Physicians [facility] Ordered by Maya Barron MD on 10/19/2020 Collected: 10/19/2020 Reported: 10/19/2020 16:08 Reported Physicians See Note None Note: Reported Physicians:Ordering: Les Vanegas: Fady Raza To: Maya Barron Reviewed by Maya Barron MD on 10/20; All test results are final unless otherwise noted. CRP, C-REACTIVE PROTEIN [facility] Ordered by Maya Barron MD on 10/19/2020 Collected: 10/19/2020 Reported: 10/19/2020 16:08 CRP SerPl-mCnc 7.5 MilliGramsPerLiter_[Mass_Concentration_Units] (0.0-5.0) H (High) Note: Responsible Observer: CRP C-Reacti ve Protein 401.4355 (H) Reviewed by Maya Barron MD on 10/20; All test results are final unless otherwise noted. SED RATE [facility] Ordered by Maya Barron MD on 10/19/2020 Collected: 10/19/2020 Reported: 10/19/2020 16:32 ESR Bld Qn Westrgrn 22 (0-20) H (High) Note: @Reenter manual test result: 22@by Jia Lentz at 10/19/20 1632.Responsible Observer: SED RATE SED RATE 100.6400 (B) Reviewed by Maya Barron MD on 10/20; All test results are final unless otherwise noted. Reported Physicians [facility] Ordered by Maya Barron MD on 10/19/2020 Collected: 10/19/2020 Reported: 10/19/2020 16:33 Reported Physicians See Note None Note: Reported Physicians:Ordering: Les Vanegasding: Fady Raza To: Maya Barron Reviewed by Maya Barron MD on 10/20; All test results are final unless otherwise noted. CMP [facility] Ordered by Maya Barron MD on [...] unless otherwise noted. CBC W AUTO DIFF [facility] Ordered by Maya Barron MD on [...] Auto See Note (0-2) N (Normal) Note: [id number] Ob service observer chief: IG% IG% 100.1375 (B) Hct VFr Bld [...] are final unless otherwise noted. Reported Physicians [facility] Ordered by Maya Barron MD on 10/19/2020 Collected: 10/19/2020 Reported: 10/19/2020 16:33 Reported Physicians See Note None Note: Reported Physicians:Ordering: Les Vanegastending: Fady Raza To: Maya Barron Reviewed by Maya Barron MD on 10/20; All test results are final unless otherwise noted. PT/PTT [facility] Ordered by Maya Barron MD on [...] are final unless otherwise noted. Reported Physicians [facility] Ordered by Maya Barron MD on 10/08/2020 Collected: 10/08/2020 Reported: 10/08/2020 03:22 Reported Physicians See Note None Note: Reported Physicians:Ordering: Sana Recinosending: Sammie Ann To: Maya Barron Reviewed by Maya Barron MD on 10/09; All test results are final unless otherwise noted. BMP [facility] Ordered by Maya Barron MD on [...] are final unless otherwise noted. Reported Physicians [facility] Ordered by Maya Barron MD on 10/08/2020 Collected: 10/08/2020 Reported: 10/08/2020 03:21 Reported Physicians See Note None Note: Reported Physicians:Ordering: Sana Recinosending: Norman Annopy To: Maya Barron Reviewed by Maya Barron MD on 10/09; All test results are final unless otherwise noted. CBC W AUTO DIFF [facility] Ordered by Maya Barron MD on [...] Auto See Note (0-2) N (Normal) Note: [id number] Ob service observer chief: IG% IG% 100.1375 (B) Hct VFr Bld [...] results are final unless otherwise noted. MAGNESIUM [facility] Ordered by Maya Barron MD on 10/08/2020 Collected: 10/08/2020 Reported: 10/08/2020 03:17 Magnesium SerPl-mCnc 1.8 MilliGramsPerDeciLiter_[Mass_Concentration_Units] (1.3-2.7) N (Normal) Note: Responsible Observer: Magnesium Ma gnesium 400.3300 (G) Reviewed by Maya Barron MD on 10/09; All test results are final unless otherwise noted. D-DIMER [facility] Ordered by Maya Barron MD on [...] are final unless otherwise noted. Reported Physicians [facility] Ordered by Maya Barron MD on 10/08/2020 Collected: 10/08/2020 Reported: 10/08/2020 03:27 Reported Physicians See Note None Note: Reported Physicians:Ordering: Sana Recinosending: Sammie Ann To: Maya Barron Reviewed by Maya Barron MD on 10/09; All test results are final unless otherwise noted. TSH w/ reflex to Free T4 [facility] Ordered by Maya Barron MD on 10/04/2020 Collected: 10/04/2020 Reported: 10/04/2020 17:42 TSH SerPl DL<=0.005 mIU/L-aCnc 1.92 MicroInternationalUnitsPerMilliLiter_[Arbitrary_Con (0.35-5. 50) N (Normal) Note: Responsible Observer: TSH TSH 600 .7060 (D) Reviewed by Maya Barron MD on 10/09; All test results are final unless otherwise noted. Reported Physicians [facility] Ordered by Maya Barron MD on 10/04/2020 Collected: 10/04/2020 Reported: 10/04/2020 17:42 Reported Physicians See Note None Note: Reported Physicians:Ordering: Les Vanegas: Fady Raza To: Maya Barron Reviewed by Maya Barron MD on 10/09; All test results are final unless otherwise noted. SED RATE [facility] Ordered by Maya Barron MD on 10/04/2020 Collected: 10/04/2020 Reported: 10/04/2020 18:05 ESR Bld Qn Westrgrn 16 (0-20) N (Normal) Note: @Reenter manual test result: 16@by Jia Lentz at 10/04/20 1805.Responsible Observer: SED RATE SED RATE 100.6400 (B) Reviewed by Maya Barron MD on 10/09; All test results are final unless otherwise noted. Reported Physicians [facility] Ordered by Maya Barron MD on 10/04/2020 Collected: 10/04/2020 Reported: 10/04/2020 18:06 Reported Physicians See Note None Note: Reported Physicians:Ordering: Les Vanegas: Fady Raza To: Maya Barron Reviewed by Maya Barron MD on 10/09; All test results are final unless otherwise noted. CBC W AUTO DIFF [facility] Ordered by Maya Barron MD on [...] Auto See Note (0-2) N (Normal) Note: [id number] Ob service observer chief: IG% IG% 100.1375 (B) Hct VFr Bld [...] test results are final unless otherwise noted. [facility] Ordered by Maya Barron MD on [...] are final unless otherwise noted. Reported Physicians [facility] Ordered by Maya Barron MD on 10/04/2020 Collected: 10/04/2020 Reported: 10/04/2020 17:42 Reported Physicians See Note None Note: Reported Physicians:Ordering: Les Vanegasding: Fady Raza To: Maya Barron Reviewed by Maya Barron MD on 10/09; All test results are final unless otherwise noted. TROPONIN [facility] Ordered by Maya Barron MD on 10/04/2020 Collected: 10/04/2020 Reported: 10/04/2020 17:35 Troponin I SerPl-mCnc Less Than 0.015 (0.00-0.09) N (Normal) Note: Less than 0.09 NG/ML Negative 0.10 - 0.77 NG/ML High Risk0.78 NG/ML or Greater PositiveThe WHO defined the cutoff (definition for diagnosis of AK)for this method as 0.78 ng/ml.Responsible Observer: Troponin I Troponin I 600.1101 (G) Reviewed by Maya Barron MD on 10/09; All test results are final unless otherwise noted. Reported Physicians [facility] Ordered by Maya Barron MD on 10/04/2020 Collected: 10/04/2020 Reported: 10/04/2020 17:35 Reported Physicians See Note None Note: Reported Physicians:Ordering: Les Vanegas AAttending: Fady Raza To: Maya Barron Reviewed by Maya Barron MD on 10/09; All test results are final unless otherwise noted. BHCG Quantitative [facility] Ordered by Maya Barron MD on 10/03/2020 Collected: 10/03/2020 Reported: 10/03/2020 20:23 [facility] [id number] MilliInternationalUnitsPerMilliLiter_[Arbitrary_Con (0-10) H (High) Note: @Instrument will [...] are final unless otherwise noted. Reported Physicians [facility] Ordered by Maya Barron MD on 10/03/2020 Collected: 10/03/2020 Reported: 10/03/2020 20:23 Reported Physicians See Note None Note: Reported Physicians:Ordering: Yoli NapolesAttending: Yoli SilvaCopy To: Maya Barron Reviewed by Maya Barron MD on 10/04; All test results are final unless otherwise noted. TROPONIN [facility] Ordered by Maya Barron MD on 10/03/2020 Collected: 10/03/2020 Reported: 10/03/2020 20:07 Troponin I SerPl-mCnc Less Than 0.015 (0.00-0.09) N (Normal) Note: Less than 0.09 NG/ML Negative 0.10 - 0.77 NG/ML High Risk0.78 NG/ML or Greater PositiveThe WHO defined the cutoff (definition for diagnosis of AK)for this method as 0.78 ng/ml.Responsible Observer: Troponin I Troponin I 600.1101 (G) Reviewed by Maya Barron MD on 10/04; All test results are final unless otherwise noted. Reported Physicians [facility] Ordered by Maya Barron MD on 10/03/2020 Collected: 10/03/2020 Reported: 10/03/2020 20:07 Reported Physicians See Note None Note: Reported Physicians:Ordering: Yoli NapolesAttending: Charles Silva To: Maya Barron Reviewed by Maya Barron MD on 10/04; All test results are final unless otherwise noted. CBC W AUTO DIFF [facility] Ordered by Maya Barron MD on [...] Auto See Note (0-2) N (Normal) Note: [id number] Ob service observer chief: IG% IG% 100.1375 (B) Hct VFr Bld [...] test results are final unless otherwise noted. [facility] Ordered by Maya Barron MD on [...] are final unless otherwise noted. Reported Physicians [facility] Ordered by Maya Barron MD on 10/03/2020 Collected: 10/03/2020 Reported: 10/03/2020 20:03 Reported Physicians See Note None Note: Reported Physicians:Ordering: Cliff Napolesending: Charles Silva To: Maya Barron Reviewed by Maya Barron MD on 10/04; All test results are final unless otherwise noted. FREE T4 (LAB) [facility] Ordered by Maya Barron MD on 10/03/2020 Collected: 10/03/2020 Reported: 10/03/2020 20:08 T4 Free SerPl-mCnc 0.97 NanoGramsPerDeciLiter_[Mass_Concentration_Units] (0.89-1.76) N (Normal) Note: Responsible Observer: FREE T4 Free Thyroxine 600.7005 (D) Reviewed by Maya Barron MD on 10/04; All test results are final unless otherwise noted. Reported Physicians [facility] Ordered by Maya Barron MD on 10/03/2020 Collected: 10/03/2020 Reported: 10/03/2020 20:08 Reported Physicians See Note None Note: Reported Physicians:Ordering: Yoli NapolesAttending: Charles Silva To: Maya Barron Reviewed by Maya Barron MD on 10/04; All test results are final unless otherwise noted. MANUAL DIFF [facility] Ordered by Maya Barron MD on [...] are final unless otherwise noted. Reported Physicians [facility] Ordered by Maya Barron MD on 10/03/2020 Collected: 10/03/2020 Reported: 10/03/2020 19:56 Reported Physicians See Note None Note: Reported Physicians:Ordering: Yoli NapolesAttending: Charles Silva To: Maya Barron Reviewed by Maya Barron MD on 10/04; All test results are final unless otherwise noted. ADD ON MICROSCOPIC [facility] Ordered by Maya Barron MD on 10/03/2020 Collected: 10/03/2020 Reported: 10/03/2020 19:52 ADD ON MICROSCOPIC See Note (0-5) None Note: NOTES OTHER/NOT INTERPRETED Bacteria UrnS Ql Micro SMALL AMOUNT Bacteria UrnS Ql Micro SMALL AMOUNT Bacteria UrnS Ql Micro L Bacteria UrnS Ql Micro Bacteria UrnS Ql Micro Bacteria UrnS Ql Micro Bacteria UrnS Ql Micro [id number] Bacteria UrnS Ql Micro Bacteria UrnS Ql [...] are final unless otherwise noted. Reported Physicians [facility] Ordered by Maya Barron MD on 10/03/2020 Collected: 10/03/2020 Reported: 10/03/2020 19:52 Reported Physicians See Note None Note: Reported Physicians:Ordering: Yoli NapolesAttending: Charles Silva To: Maya Barron Reviewed by Maya Barron MD on 10/04; All test results are final unless otherwise noted. UA W/ CULTURE IF ABNORMAL [facility] Ordered by Maya Barron MD on 10/03/2020 Collected: 10/03/2020 Reported: 10/03/2020 19:52 Urobilinogen Ur Ql See Note (0.2-1 EU/dl) None Note: 0.2 EU/dl0.2 EU/[id number] E U/dlResponsible Observer: UROBILINOGEN UROBILINOGEN 300.4500 (C) RBC # Ur Strip NEGATIVE (NEGATIVE) None Note: Responsible Observer: BLOOD BLOOD 300.4652 (C) Prot Ur Ql Strip See Note (NEGATIVE) None Note: [id number] EResponsible Observer: PROTEIN PROTEIN 300.3750 (C) Ketones Ur Ql Strip See Note (NEGATIVE) None Note: [id number] EResponsible Observer: KETONE KETONE 300.3900 (C) Bilirub Ur Ql Strip.auto See Note (NEGATIVE) None Note: [id number] EResponsible Observer: BILIRUBIN BILIRUBIN 300.4550 (C) Glucose Ur Strip.auto-mCnc NEGATIVE (NEGATIVE) None Note: Responsible Observer: GLUCOSE GLUC OSE 300.3850 (C) Appearance Ur See Note (CLEAR) None Note: CLEARCLEARLCLEARResponsible Observ er: APPEARANCE APPEARANCE 300.3400 (A) Color Ur See Note None Note: YELLOWYELLOWLYELLOWResponsible Obs erver: COLOR COLOR 300.3330 (A) Leukocyte esterase Ur Ql Strip See Note (NEGATIVE) None Note: [id number]@DO MICR O!!!!A Culture has been added to this specimen per established criteriaResponsible Observer: LEUKOCYTES LEUKOCYTES 300.3576 (C) Nitrite Ur Ql Strip See Note (NEGATIVE) None Note: [id number] EResponsible Observer: NITRITE NITRITE 300.3652 (B) pH [...] are final unless otherwise noted. Urine culture [facility] Ordered by Maya Barron MD on 10/03/2020 Collected: 10/03/2020 Reported: 10/04/2020 13:10 Bacteria Ur Cult See Note None Note: NGNo growth.L1NG NOTES See Note None Note: @10/03/201951: Urine culture adde d. RFLXG = CULT.ADD. Reviewed by Maya Barron MD on 10/04; All test results are final unless otherwise noted. Reported Physicians [facility] Ordered by Maya Barron MD on 10/03/2020 Collected: 10/03/2020 Reported: 10/04/2020 13:10 Reported Physicians See Note None Note: Reported Physicians:Ordering: Yoli NapolesAttending: Charles Silva To: Maya Barron Reviewed by Maya Barron MD on 10/04; All test results are final unless otherwise noted. BHCG, QUANTITATIVE [facility] Ordered by Maya Barron MD on 09/18/2020 Collected: 09/18/2020 Reported: 09/18/2020 20:21 B[facility] [id number] MilliInternationalUnitsPerMilliLiter_[Arbitrary_Con (0-10) H (High) Note: APPROXIMATE GESTATION [...] are final unless otherwise noted. Reported Physicians [facility] Ordered by Maya Barron MD on 09/18/2020 Collected: 09/18/2020 Reported: 09/18/2020 20:22 Reported Physicians See Note None Note: Reported Physicians:Ordering: Yoli NapolesAttending: Charles Silva To: Maya Barron Reviewed by Maya Barron MD on 09/20; All test results are final unless otherwise noted. CBC W AUTO DIFF [facility] Ordered by aMya Barron MD on 09/18/2020 Collected: 09/18/2020 Reported: [...] Auto See Note (0-2) N (Normal) Note: [id number] Ob service observer chief: IG% IG% 100.1375 (B) Hct VFr Bld [...] test results are final unless otherwise noted. [facility] Ordered by Maya Barron MD on [...] are final unless otherwise noted. Reported Physicians [facility] Ordered by Maya Barron MD on 09/18/2020 Collected: 09/18/2020 Reported: 09/18/2020 20:10 Reported Physicians See Note None Note: Reported Physicians:Ordering: Cliff Napolesending: Charles Silva To: Maya Barron Reviewed by Maya Barron MD on 09/20; All test results are final unless otherwise noted. TROPONIN [facility] Ordered by Maya Barron MD on 09/18/2020 Collected: 09/18/2020 Reported: 09/18/2020 20:10 Troponin I SerPl-mCnc Less Than 0.015 (0.00-0.09) N (Normal) Note: Less than 0.09 NG/ML Negative 0.10 - 0.77 NG/ML High Risk0.78 NG/ML or Greater PositiveThe WHO defined the cutoff (definition for diagnosis of AK)for this method as 0.78 ng/ml.Responsible Observer: Troponin I Troponin I 600.1101 (G) Reviewed by Maya Barron MD on 09/20; All test results are final unless otherwise noted. Reported Physicians [facility] Ordered by Maya Barron MD on 09/18/2020 Collected: 09/18/2020 Reported: 09/18/2020 20:10 Reported Physicians See Note None Note: Reported Physicians:Ordering: Yoli NapolesAttending: Charles Silva To: Maya Barron Reviewed by Maya Barron MD on 09/20; All test results are final unless otherwise noted. Urine culture [facility] Ordered by Cat Gutierrez RPA on 09/11/2020 Collected: 09/11/2020 Reported: 09/12/2020 13:11 Bacteria Ur Cult See Note None Note: NGNo growth.L1NG NOTES See Note None Note: GEORGIANA PICKARD IN OTHER NAME IN MEDICAL RECORD Reviewed by Cat Gutierrez RPA on 09/12; All test results are final unless otherwise noted. Reported Physicians [facility] Ordered by Cat Gutierrez RPA on 09/11/2020 Collected: 09/11/2020 Reported: 09/12/2020 13:11 Reported Physicians See Note None Note: Reported Physicians:Ordering: Cat ConwayAttending: Cat Gutierrez Reviewed by Cat Gutierrez RPA on 09/12; All test results are final unless otherwise noted. UA W/ CULTURE IF ABNORMAL [facility] Ordered by Maya Barron MD on 09/10/2020 Collected: 09/10/2020 Reported: 09/10/2020 17:48 Urobilinogen Ur Ql See Note (0.2-1 EU/dl) None Note: 0.2 EU/dl0.2 EU/[id number] E U/dlResponsible Observer: UROBILINOGEN UROBILINOGEN 300.4500 (C) RBC # Ur Strip NEGATIVE (NEGATIVE) None Note: Responsible Observer: BLOOD BLOOD 300.4652 (C) Prot Ur Ql Strip See Note (NEGATIVE) None Note: [id number] EResponsible Observer: PROTEIN PROTEIN 300.3750 (C) Ketones Ur Ql Strip See Note (NEGATIVE) None Note: [id number] ble Observer: KETONE KETONE 300.3900 (C) Bilirub Ur Ql Strip.auto See Note (NEGATIVE) None Note: [id number] EResponsible Observer: BILIRUBIN BILIRUBIN 300.4550 (C) Glucose Ur Strip.auto-mCnc NEGATIVE (NEGATIVE) None Note: Responsible Observer: GLUCOSE GLUC OSE 300.3850 (C) Appearance Ur See Note (CLEAR) None Note: CLEARCLEARLCLEARResponsible Observ er: APPEARANCE APPEARANCE 300.3400 (A) Color Ur See Note None Note: YELLOWYELLOWLYELLOWResponsible Obs erver: COLOR COLOR 300.3330 (A) Leukocyte esterase Ur Ql Strip See Note (NEGATIVE) None Note: [id number] EResponsible Observer: LEUKOCYTES LEUKOCYTES 300.3576 (C) Nitrite Ur Ql Strip See Note (NEGATIVE) None Note: [id number] EResponsible Observer: NITRITE NITRITE 300.3652 (B) pH [...] are final unless otherwise noted. Reported Physicians [facility] Ordered by Maya Barron MD on 09/10/2020 Collected: 09/10/2020 Reported: 09/10/2020 17:48 Reported Physicians See Note None Note: Reported Physicians:Ordering: Les Vanegas AAttending: Fady Raza To: Maya Barron Reviewed by Maya Barron MD on 09/11; All test results are final unless otherwise noted. ABO/Rh Type [facility] Ordered by Maya Barron MD on 09/10/2020 Collected: 09/10/2020 Reported: 09/10/2020 15:43 Blood bank studies Yes None Note: Responsible Observer: Prev. Histor y? Previous History? 100.0800 (A) Blood Type See Note None Note: OPO PositiveLResponsible Observer: Blood Type Blood Type 110.0950 (C) Reviewed by Maya Barron MD on 09/11; All test results are final unless otherwise noted. Reported Physicians [facility] Ordered by Maya Barron MD on 09/10/2020 Collected: 09/10/2020 Reported: 09/10/2020 15:43 Reported Physicians See Note None Note: Reported Physicians:Ordering: Les Vanegastending: Fady Raza To: Maya Barron Reviewed by Maya Barron MD on 09/11; All test results are final unless otherwise noted. BHCG, QUANTITATIVE [facility] Ordered by Maya Barron MD on 09/10/2020 Collected: 09/10/2020 Reported: 09/10/2020 15:48 [facility] [address] MilliInternationalUnitsPerMilliLiter_[Arbitrary_Con (0-10) H (High) Note: @Instrument will [...] are final unless otherwise noted. Reported Physicians [facility] Ordered by Maya Barron MD on 09/10/2020 Collected: 09/10/2020 Reported: 09/10/2020 15:49 Reported Physicians See Note None Note: Reported Physicians:Ordering: Les Vanegastending: Fady Raza To: Maya Barron Reviewed by Maya Barron MD on 09/11; All test results are final unless otherwise noted. COVID [facility] Ordered by Maya Barron MD on [...] findings,re- testing should be considered in consultation with[facility] [facility] health authorities. Laboratory test results shouldalways be considered in the context of clinicalobservations and epidemiological data in making a finaldiagnosis and patient management decisions.Please review the "Fact Sheets" and FDA authorizedlabeling available for health care providers andpatients using the following websites:https://www.[employer] .com/home/Covid-19/HCP/NAAT/fact-aqbjy4vofzj://www.[employer]/home/Cov id-19/Patients/NAAT/fact-oswcq6Matj test has been authorized by the FDA under anEmergency Use Authorization (EUA) for use by authorizedlaboratories.Due to the current public health emergency, [employer] is receiving a high volume of samples [...] information about COVID-19 can be foundat the [employer] website:www.[employer].com/Covid19.THIS TEST WAS PERFORMED AT:[facility] [id number] MERATICLAUDYesponsible Observer: COVID-19 COVID-19 ТАТЬЯНА (SARS-CoV-2) [id number] [phone] (Areshay) Reviewed by Maya Barron MD on 08/25; All test results are final unless otherwise noted. Reported Physicians [facility] Ordered by Maya Barron MD on 08/23/2020 Collected: 08/23/2020 Reported: 08/25/2020 03:57 Reported Physicians See Note None Note: Reported Physicians:Ordering: Sana Recinosending: Sammie Ann To: Maya Barron Reviewed by Maya Barron MD on 08/25; All test results are final unless otherwise noted. [facility] St[facility] Ordered by Maya Barron MD on 08/15/2020 [address] [place], [address] Collected: 08/15/2020 Reported: 08/15/2020 11:47 tel :[phone] strep antigen normal (negative) N (Normal) Reviewed by Maya Barron MD on 08/15; All test results are final unless otherwise noted. Urinalysis w/out microscopy Office Lab Ordered by Maya Barron MD on 08/15/[address] [place] [address], [phone] Specimen Source: Urine Collected: 08/15/2020 Reporte d: 08/15/2020 11:03 tel:[phone] bilirubin normal (neg) N (Normal) blood normal [...] unless otherwise noted. Extended hours FLU/COV2 NAAT [facility] Ordered by Maya Barron MD on 08/15/2020 Collected: 08/15/2020 Reported: 08/15/2020 15:55 Extended hours FLU/COV2 NAAT See Note None Note: TNPNo Reportable ResultLTNPNo Repo rtable BuvnhqT8YJA NOTES See Note None Note: GEORGIANA PICKARD IN OTHER NAME IN MEDICAL RECORD Reviewed by Maya Barron MD on 08/16; All test results are final unless otherwise noted. Reported Physicians [facility] Lab Ordered by Maya Barron MD on 08/15/2020 Collected: 08/15/2020 Reported: 08/15/2020 15:55 Reported Physicians See Note None Note: Reported Physicians:Ordering: Maya AlvarengaAttending: Maya Barron Reviewed by Maya Barron MD on 08/16; All test results are final unless otherwise noted. Sweta Raquel SARS/FLU [facility] Ordered by Maya Barron MD on 08/15/2020 Collected: 08/15/2020 Reported: 08/15/2020 15:55 Sweta Raquel SARS/FLU See Note None Note: Sweta Raquel is a rapid, automated q ualitative anddifferentiation of Influenza type A,B and BNJB-QVN-6KNHV-RT-PCR testNORMAL VALUE IS "NOT DETECTED".Limitations of the sweta raquel Influenza A/B & VIOR-OKL-2uqtny method.Modifications to manufacturers recommendation and proceduresmay alter performance of the test.Negative results do not preclude Influenza A,B or SARS- LIR1mllzmezjhk and should not be used as the [...] out diseases caused by other bacterialor viral pathogens.[id number]-dwv CoV RNA Resp Ql ТАТЬЯНА+probeLNNSARS SARS-COV-2 NOT [id number]-WEZ-1 NOT RDBEGDYV27984-5ZVXLA RNA Resp Ql ТАТЬЯНА+probeLNNFLUAInfluenza A Not [id number] A Not Tzifqmii70185-1BHVMZ RNA Resp Ql ТАТЬЯНА+probeLNNINBInfluenza B Not MopijdykX8450252615Uqkquualn B Not Detected NOTES See Note None Note: GEORGIANA PICKARD IN OTHER NAME IN MEDICAL RECORD Reviewed by Maya Barron MD on 08/18; All test results are final unless otherwise noted. Throat culture [facility] Lab Ordered by Maya Barron MD on 08/15/2020 Collected: 08/15/2020 Reported: 08/17/2020 06:37 Throat culture results Normal Deisy None Reviewed by Maya Barron MD on 08/18; All test results are final unless otherwise noted. Reported Physicians [facility] Ordered by Maya Barron MD on 08/15/2020 Collected: 08/15/2020 Reported: 08/17/2020 06:37 Reported Physicians See Note None Note: Reported Physicians:Ordering: Maya AlvarengaAttending: Maya Barron Reviewed by Maya Barron MD on 08/18; All test results are final unless otherwise noted. HPVI [facility] Lab Ordered by Cat Gutierrez RPA on 08/09/2020 Collected: 08/09/2020 Reported: 08/15/2020 06:53 Thin Prep Vag See Note None Note: See scanned reportSee scanned repo rtLSee scanned reportResponsible Observer: TP w/HPV if ASC Thinprep w/HPV if ASCUS 805.1454 ([facility]) NOTES See Note None Note: TRF18-87Ywuvzsgqsp Technique: BRUS H-SPATULABody Site: CERVIX Reviewed by Cat Gutierrez RPA on 08/15; All test results are final unless otherwise noted. Reported Physicians [facility] Ordered by Cat Gutierrez RPA on 08/09/2020 Collected: 08/09/2020 Reported: 08/15/2020 06:53 Reported Physicians See Note None Note: Reported Physicians:Ordering: Atte nding: Rigo Gutierrez To: Maya Barron Reviewed by Cat Gutierrez RPA on 08/15; All test results are final unless otherwise noted. GCAMP [facility] Ordered by Cat Gutierrez RPA on 08/09/2020 Collected: 08/09/2020 Reported: 08/11/2020 06:52 C trach rRNA XXX Ql ТАТЬЯНА+probe See Note (NOT DETECTED) None Note: NOT DETECTEDNOT [id number] 6NOT DETECTEDResponsible Observer: C.Trach RNA Chlamydia trachomatis DNA-ТАТЬЯНА 04777197 913.9900 ([facility]) N gonorrhoea rRNA XXX Ql ТАТЬЯНА+probe See Note (NOT DETECTED) None Note: NOT DETECTEDNOT [id number] 6NOT DETECTEDResponsible Observer: GC RNA Neisseria gonorrhoeae DNA -ТАТЯЬНА [id number] 913.9905 ([facility]) Chlamydia/GC DNA Note SEE NOTE None Note: The analytical performance charact eristics of thisassay, when used to test SurePath(TM) specimens have beendetermined by [employer]. The modifications havenot been cleared or approved by the FDA. This assay hasbeen validated pursuant to the CLIA regulations and isused for clinical purposes.For additional information, please refer tohttps://education.[employer]es.All Copy Products/faq/CMU885(This link is being provided for information/educational purposes only.)THIS TEST WAS PERFORMED AT:[facility] [address]CLAUDY ONEILLesponsible Observer: GC/Chlam Note Chlamydia/GC DNA Note [id number] 913.9907 (A) NOTES See Note None Note: PICKARD:IN OTHER NAME IN MEDICAL RECORD Reviewed by Cat Gutierrez RPA on 08/12; All test results are final unless otherwise noted. Reported Physicians [facility] Ordered by Cat Gutierrez RPA on 08/09/2020 Collected: 08/09/2020 Reported: 08/11/2020 06:52 Reported Physicians See Note None Note: Reported Physicians:Ordering: Atte nding: Cat GutierrezCopy To: Maya Barron Reviewed by Cat Gutierrez RPA on 08/12; All test results are final unless otherwise noted. AFFIRM [facility] Lab Ordered by Cat Gutierrez [facility] on 08/09/2020 Collected: 08/09/2020 Reported: 08/11/2020 06:52 Dionna species DNA Probe NOT DETECTED (NOT DETECTED) None Note: THIS TEST WAS PERFORMED AT:[facility] [address] [address]MLCVCG MERATI,CLAUDYesponsible Observer: Dionna DNA Dionna species DNA Probe [id number] 913.2350 ([facility]) Gardnerella DNA Probe DETECTED (NOT DETECTED) H (High) Note: Increased levels of G. vaginalis m ay not be significantin the absence of signs and symptoms of bacterialvaginosis.Responsible Observer: Gardnerella DNA Gardnerella DNA Probe [id number] 913.2345 ([facility]) Trichomonas DNA Probe NOT DETECTED (NOT DETECTED) None Note: Responsible Observer: Trichomonas DNA Trichomonas DNA Probe [id number] 913.2340 ([facility]) NOTES See Note None Note: PICKARD:IN OTHER NAME IN MEDICAL RECORD Reviewed on 08/11/2020; All test result s are final unless otherwise noted. Reported Physicians [facility] Ordered by Cat Gutierrez [facility] on 08/09/2020 Collected: 08/09/2020 Reported: 08/11/2020 06:52 Reported Physicians See Note None Note: Reported Physicians:Ordering: Atte ndcristiane: Cat GutierrezCopy To: Maya Barron Reviewed on 08/11/2020; All test result s are final unless otherwise noted. ADD ON MICROSCOPIC [facility] Ordered by Cat Gutierrez [facility] on 08/09/2020 Collected: 08/09/2020 Reported: 08/09/2020 12:23 ADD ON MICROSCOPIC See Note (0-5) H (High) Note: NOTES OTHER/NOT INTERPRETED Bacteria UrnS Ql Micro SMALL AMOUNT Bacteria UrnS Ql Micro SMALL AMOUNT Bacteria UrnS Ql Micro L Bacteria UrnS Ql Micro Bacteria UrnS Ql Micro Bacteria UrnS Ql Micro Bacteria UrnS Ql Micro [id number] Bacteria UrnS Ql Micro Bacteria UrnS Ql [...] Ql Micro Mucous Threads UrnS Ql Micro [id number] Mucous Threads UrnS Ql Micro Mucous Threads UrnS Ql Micro MODERATE AMOUNT WBC # Ur Manual 5-8 @08/09/20 1210: UA W/ MICRO added. RFLXG = UMIC.Method of Collection:: Clean CatchResponsible Observer: WBC WBC 300.5000 (A) Reviewed by Cat Gutierrez RPA on 08/12; All test results are final unless otherwise noted. Reported Physicians [facility] Ordered by Cat Gutierrez RPA on 08/09/2020 Collected: 08/09/2020 Reported: 08/10/2020 17:47 Reported Physicians See Note None Note: Reported Physicians:Ordering: Atte oralia: Rigo Gutierrez To: Maya Barron Reviewed by Cat Gutierrez RPA on 08/12; All test results are final unless otherwise noted. URINALYSIS [facility] Ordered by Cat Gutierrez RPA on 08/09/2020 Collected: 08/09/2020 Reported: 08/09/2020 12:23 Urobilinogen Ur Ql See Note (0.2-1 EU/dl) None Note: 1 EU/dl1 EU/[id number] EU/dlRe sponsible Observer: UROBILINOGEN UROBILINOGEN 300.4500 (C) RBC # Ur Strip NEGATIVE (NEGATIVE) None Note: Responsible Observer: BLOOD BLOOD 300.4650 (C) Prot Ur Ql Strip See Note (NEGATIVE) None Note: [id number] ble Observer: PROTEIN PROTEIN 300.3750 (C) Ketones Ur Ql Strip See Note (NEGATIVE) None Note: [id number] ble Observer: KETONE KETONE 300.3900 (C) Bilirub Ur Ql Strip.auto See Note (NEGATIVE) None Note: [id number] EResponsible Observer: BILIRUBIN BILIRUBIN 300.4550 (C) Glucose Ur Strip.auto-mCnc NEGATIVE (NEGATIVE) None Note: Responsible Observer: GLUCOSE GLUC OSE 300.3850 (C) Appearance Ur See Note (CLEAR) None Note: CLEARCLEARLCLEARResponsible Observ er: APPEARANCE APPEARANCE 300.3400 (A) Color Ur See Note None Note: DARK YELLOWDARK YELLOWLDARK YELLOW Responsible Observer: COLOR COLOR 300.3300 (A) Leukocyte esterase Ur Ql Strip See Note (NEGATIVE) None Note: [id number]@DO MICR O!!!!Responsible Observer: LEUKOCYTES LEUKOCYTES 300.3575 (C) Nitrite Ur Ql Strip See Note (NEGATIVE) None Note: [id number] EResponsible Observer: NITRITE NITRITE 300.3650 (B) pH [...] are final unless otherwise noted. Urine culture [facility] Ordered by Cat Gutierrez RPA on 08/09/2020 Collected: 08/09/2020 Reported: 08/10/2020 08:33 Bacteria Ur Cult See Note None Note: NGNo growth.L1NG Reviewed by Cat Gutierrez RPA on 08/14; All test results are final unless otherwise noted. MEDMATCH [facility] Ordered by Cat Gutierrez RPA on 08/09/2020 Collected: 08/09/2020 Reported: 08/13/2020 15:56 MEDMATCH See scanned report None Note: Responsible Observer: MEDMATCH MED MATCH 910.15403 ([facility]) Reviewed by Cat Gutierrez RPA on 08/14; All test results are final unless otherwise noted. Reported Physicians [facility] Ordered by Cat Gtuierrez RPA on 08/09/2020 Collected: 08/09/2020 Reported: 08/13/2020 15:56 Reported Physicians See Note None Note: Reported Physicians:Ordering: Atte memeing: Rigo Gutierrez To: Maya Barron Reviewed by Cat Gutierrez RPA on 08/14; All test results are final unless otherwise noted. HCV RFX ТАТЬЯНА [facility] Ordered by Cat Gutierrez RPA on 08/09/2020 Collected: 08/09/2020 Reported: 08/10/2020 17:47 HCV Ab Ser Ql See Note (NON-REACTIVE) None Note: HRW-ZVZQQTMTEUK-[id number] 7NON-REACTIVEResponsible Observer: HEP C ANTIBODY Hepatitis C Antibody [id number] 914.8305 ([facility]) HCV RNA Qualitative (ТАТЬЯНА) 0.54 (<1.00) None Note: HCV antibody was non-reactive. The re is no laboratoryevidence of HCV infection.In most cases, no further action is required. However,if recent HCV exposure is suspected, a test for HCV RNA(test code 33998) is suggested.For additional information please refer tohttp://education.[employer]es.All Copy Products/faq/CZZ45i9(This link is being provided for informational/educational purposes only.)THIS TEST WAS PERFORMED AT:[facility] [address]CLAUDY ONEILLesponsible Observer: SIG TO C/O SIGNAL TO CUTOFF [id number] 914.8359 ([facility]) NOTES See Note None Note: Patient Street Address: [address] City: [place]: [place]Patient Zip Code: [address] Reviewed by Cat Gutierrez RPA on 08/12; All test results are final unless otherwise noted. Reported Physicians [facility] Ordered by Cat Gutierrez RPA on 08/09/2020 Collected: 08/09/2020 Reported: 08/10/2020 17:47 Reported Physicians See Note None Note: Reported Physicians:Ordering: Atte nding: Rigo Gutierrez To: Maya Barron Reviewed by Cat Gutierrez RPA on 08/12; All test results are final unless otherwise noted. Varicella-Zoster IgG Antibody [facility] Ordered by Cat Gutierrez RPA on 08/09/2020 Collected: 08/09/2020 Reported: 08/10/2020 17:47 VZV IgG Ser IA-aCn 242.10 None Note: Index Interpr etation --------- [...] Antibody Immunity Screen, ACIF.THIS TEST WAS PERFORMED AT:[facility] [address]QZYUOS ME RATI,MDResponsible Observer: VARICELLA IGG Varicella-Zoster IgG Antibody [id number] 869.1245 ([facility]) NOTES See Note None Note: Patient Street Address: [facility] [facility] [address]Patient City: [place] State: [place]Patient Zip Code: [address] Reviewed by Cat Gutierrez RPA on 08/12; All test results are final unless otherwise noted. CBC [facility] Ordered by Cat Gutierrez RPA on [...] Auto See Note (0-2) N (Normal) Note: 0.20.4I02119886600.2Responsible Ob service observer chief: IG% IG% 100.1375 (B) Hct VFr Bld [...] results are final unless otherwise noted. TSH [facility] Ordered by Cat Gutierrez RPA on 08/09/2020 Collected: 08/09/2020 Reported: 08/09/2020 14:24 TSH SerPl DL<=0.005 mIU/L-aCnc 1.18 MicroInternationalUnitsPerMilliLiter_[Arbitrary_Con (0.35-5. 50) N (Normal) Note: Responsible Observer: TSH TSH 600 .7055 (D) Reviewed by Cat Gutierrez RPA on 08/14; All test results are final unless otherwise noted. Lead (Venous) Wh.Bld [facility] Ordered by Cat Gutierrez RPA on 08/09/2020 Collected: 08/09/2020 Reported: 08/10/2020 17:47 Lead Bld-sCnc <1 (<5) None Note: See Note 1Note 1This test was faith granados and its analytical performancecharacteristics have been determined by [employer]. It has not been cleared or approved by theA. This assay has been validated pursuant to the CLIAregulations and is used for clinical purposes.THIS TEST WAS PERFORMED AT:[facility] [address]WGTMGJCLAUDY ONEILLesponsible Observer: Lead, WB Lead, Whole Blood [id number] 911.2190 ([facility]) NOTES See Note None Note: Patient Street Address: [facility] [address]Patient City: [place]: [facility] Zip Code: [address]Ebgrhcp Reviewed by Cat Gutierrez RPA on 08/14; All test results are final unless otherwise noted. ncPN REF [facility] Ordered by Cat Gutierrez RPA on 08/09/2020 Collected: 08/09/2020 Reported: 08/13/2020 15:26 T pallidum Ab Ser Ql Aggl See Note (Nonreactive) None Note: [id number] onreactiveResponsible Observer: TP-PA Treponema pallidum Ab (TP-PA) [id number] 908.0286 ([facility]) HIV1 RNA SerPl Ql ТАТЬЯНА+probe See Note None Note: TNPNo Reportable ResultLTNPNo Repo rtable ResultLLEP.LIVENTNPResponsible Observer: HIV 1 RNA, QL T HIV 1 RNA, QL TMA [id number] 908.0254 ([facility]) HBV surface Ag SerPl Ql IA See Note (NON-REACTIVE) None Note: [id number] 5NON-REACTIVEResponsible Observer: HBSAG Hepatitis B Surface Antigen 94368030 910.2004 ([facility]) RUBV IgG SerPl IA-aCnc 1.76 None Note: Index Interpretatio n ----- <0.90 Not consistent with immunity 0.90-0.99 Equivocal > or = 1.00 Consistent with immunityThe presence of rubella IgG antibody suggestsimmunization or past or current infection withrubella virus.THIS TEST WAS PERFORMED AT:[facility] [address]GROCBB MERATI,MDResponsible Observer: Rubella IgG Ab Rubella IgG Ab 92324428 911.2840 ([facility]) HIV1 Ab SerPlBld Ql IA.rapid See Note None Note: TNPNo Reportable ResultLTNPNo Repo rtable ResultLLEP.LIVENTNPResponsible Observer: HIV 1 AB HIV 1 AB [id number] 908.0250 ([facility]) HBsAg Confirmation See Note None Note: TNPNo Reportable ResultLTNPNo Repo rtable ResultLLEP.LIVENTNPResponsible Observer: HBsAg Confirm HBsAg Confirmation [id number] 910.2006 ([facility]) HIV (1&2) Screen, 4th Gen [...] for this purpose.For additional information please refer tohttp://education.Doist/faq/EHU700(This link is being provided for informational/educational purposes only.)The performance of this assay has not been clinicallyvalidated in patients less than 2 years old.THIS TEST WAS PERFORMED AT:[facility] [address]SXYYPP MERATI,MDResponsible Observer: HIV ABS HIV (1&2) Screen, 4th Gen [id number] 908.0228 (I) Reviewed by Cat Gutierrez RPA on 08/14; All test results are final unless otherwise noted. Reported Physicians [facility] Ordered by Cat Gutierrez RPA on 08/09/2020 Collected: 08/09/2020 Reported: 08/13/2020 15:27 Reported Physicians See Note None Note: Reported Physicians:Ordering: Attchandler valentineing: Cat GutierrezCopyifan To: Maya Barron Reviewed by Cat Gutierrez RPA on 08/14; All test results are final unless otherwise noted. Type and Screen [facility] Ordered by Cat Gutierrez RPA on [...] are final unless otherwise noted. Reported Physicians [facility] Ordered by Cat Gutierrez RPA on 08/09/2020 Collected: 08/09/2020 Reported: 08/09/2020 12:39 Reported Physicians See Note None Note: Reported Physicians:Ordering: Cat ConwayAttending: Rigo Gutierrez To: Maya Barron Reviewed by Cat Gutierrez RPA on 08/10; All test results are final unless otherwise noted. BHCG, QUANTITATIVE [facility] Ordered by Cat Gutierrez RPA on 08/08/2020 Collected: 08/08/2020 Reported: 08/08/2020 11:53 B-HCG [facility] [address] MilliInternationalUnitsPerMilliLiter_[Arbitrary_Con (0-10) H (High) Note: @Instrument will autodiluteAPPROXI MATE GESTATION AGE APRROXIMATE HCG RANGE 0-1 WEEK 0 - 50 1-2 WEEKS 40 - 300 2-3 WEEKS 100 - 1,000 3-4 WEEKS 500 - 6,000 1-2 MONTHS 5,000 - 200,000 2-3 MONTHS 10,000 - 100,000 2ND TRIMESTER 3,000 - 50,000 3RD TRIMESTER 1,000 - 50,000Responsible Observer: BHCG,QUANT [facility], QUANTITATIVE 600.5006 (G) Reviewed by Cat Gutierrez RPA on 08/08; All test results are final unless otherwise noted. Reported Physicians [facility] Ordered by Cat Gutierrez RPA on 08/08/2020 Collected: 08/08/2020 Reported: 08/08/2020 11:54 Reported Physicians See Note None Note: Reported Physicians:Ordering: Atte nding: Rigo Gutierrez To: Maya Barron Reviewed by Cat Gutierrez RPA on 08/08; All test results are final unless otherwise noted. Type and Screen [facility] Ordered by Cat Gutierrez RPA on [...] are final unless otherwise noted. Reported Physicians [facility] Ordered by Cat Gutierrez RPA on 08/01/2020 Collected: 08/01/2020 Reported: 08/01/2020 06:03 Reported Physicians See Note None Note: Reported Physicians:Ordering: Aj Ferreiraending: Jos Rivas To: Maya Barron Reviewed by Cat Gutierrez RPA on 08/01; All test results are final unless otherwise noted. BHCG, QUANTITATIVE [facility] Ordered by Cat Gutierrez RPA on 08/01/2020 Collected: 08/01/2020 Reported: 08/01/2020 02:26 B-[facility] [address] MilliInternationalUnitsPerMilliLiter_[Arbitrary_Con (0-10) H (High) Note: @Instrument will [...] are final unless otherwise noted. Reported Physicians [facility] Ordered by Cat Gutierrez RPA on 08/01/2020 Collected: 08/01/2020 Reported: 08/01/2020 02:26 Reported Physicians See Note None Note: Reported Physicians:Ordering: Aj Ferreiraending: Jos Rivas To: Maya Barron Reviewed by Cat Gutierrez RPA on 08/01; All test results are final unless otherwise noted. CBC W AUTO DIFF [facility] Ordered by Cat Gutierrez RPA on [...] Auto See Note (0-2) N (Normal) Note: [id number] Ob service observer chief: IG% IG% 100.1375 (B) Hct VFr Bld [...] test results are final unless otherwise noted. [facility] Ordered by Cat Gutierrez RPA on [...] are final unless otherwise noted. Reported Physicians [facility] Ordered by Cat Gutierrez RPA on 08/01/2020 Collected: 08/01/2020 Reported: 08/01/2020 02:26 Reported Physicians See Note None Note: Reported Physicians:Ordering: Aj Ferreiraending: Jos Rivas To: Maya Barron Reviewed by Cat Gutierrez RPA on 08/01; All test results are final unless otherwise noted. ADD ON MICROSCOPIC [facility] Ordered by Cat Gutierrez RPA on 08/01/2020 Collected: 08/01/2020 Reported: 08/01/2020 01:01 ADD ON MICROSCOPIC See Note (0-5) None Note: NOTES OTHER/NOT INTERPRETED Bacteria UrnS Ql Micro MODERATE AMOUNT Bacteria UrnS Ql Micro MODERATE AMOUNT Bacteria UrnS Ql Micro L Bacteria UrnS Ql Micro Bacteria UrnS Ql Micro Bacteria UrnS Ql Micro Bacteria UrnS Ql Micro [id number] Bacteria UrnS Ql Micro Bacteria UrnS Ql [...] 0048: UA W/ MICRO added. RFLXG = [facility] CIF.Method of Collection:: VoidedResponsible Observer: RBC RBC 300.4900 (A) Reviewed by Cat Gutierrez RPA on 08/01; All test results are final unless otherwise noted. Reported Physicians [facility] Ordered by Cat Gutierrez RPA on 08/01/2020 Collected: 08/01/2020 Reported: 08/01/2020 01:01 Reported Physicians See Note None Note: Reported Physicians:Ordering: Aj Ferreiraending: Jos Rivas To: Maya Barron Reviewed by Cat Gutierrez [facility] on 08/01; All test results are final unless otherwise noted. UA W/ CULTURE IF ABNORMAL [facility] Ordered by Cat Gutierrez RPA on 08/01/2020 Collected: 08/01/2020 Reported: 08/01/2020 01:01 Urobilinogen Ur Ql See Note (0.2-1 EU/dl) None Note: 0.2 EU/dl0.2 EU/[id number] E U/dlResponsible Observer: UROBILINOGEN UROBILINOGEN 300.4500 (C) RBC # Ur Strip SMALL (NEGATIVE) None Note: @DO MICRO!!!!Responsible Observer: BLOOD BLOOD 300.4652 (C) Prot Ur Ql Strip See Note (NEGATIVE) None Note: [id number] EResponsible Observer: PROTEIN PROTEIN 300.3750 (C) Ketones Ur Ql Strip See Note (NEGATIVE) None Note: 15 mg/dL15 mg/tIU813176366390 mg/d LResponsible Observer: KETONE KETONE 300.3900 (C) Bilirub Ur Ql Strip.auto See Note (NEGATIVE) None Note: [id number] EResponsible Observer: BILIRUBIN BILIRUBIN 300.4550 (C) Glucose Ur Strip.auto-mCnc NEGATIVE (NEGATIVE) None Note: Responsible Observer: GLUCOSE GLUC OSE 300.3850 (C) Appearance Ur See Note (CLEAR) None Note: CLEARCLEARLCLEARResponsible Observ er: APPEARANCE APPEARANCE 300.3400 (A) Color Ur See Note None Note: YELLOWYELLOWLYELLOWResponsible Obs erver: COLOR COLOR 300.3330 (A) Leukocyte esterase Ur Ql Strip See Note (NEGATIVE) None Note: [id number]@DO MICR O!!!!A Culture has been added to this specimen per established criteriaResponsible Observer: LEUKOCYTES LEUKOCYTES 300.3576 (C) Nitrite Ur Ql Strip See Note (NEGATIVE) None Note: [id number] EResponsible Observer: NITRITE NITRITE 300.3652 (B) pH [...] Voided Reviewed by Cat Gutierrez RPA on 08/02; All test results are final unless otherwise noted. Urine culture [facility] Ordered by Cat Gutierrez RPA on 08/01/2020 Collected: 08/01/2020 Reported: 08/02/2020 07:41 Urine culture result See Note None Note: Greater than 100,000 CFU/MLLactoba cilli no senst done NOTES See Note None Note: @08/01/20 0101: Urine culture flavia sawyer RFLXG = CULT.ADD. Reviewed by Cat Gutierrez RPA on 08/02; All test results are final unless otherwise noted. Reported Physicians [facility] Ordered by Cat Gutierrez RPA on 08/01/2020 Collected: 08/01/2020 Reported: 08/02/2020 07:41 Reported Physicians See Note None Note: Reported Physicians:Ordering: Aj Ferreiraending: Jos Rivas To: Maya Barron Reviewed by Cat Gutierrez RPA on 08/02; All test results are final unless otherwise noted. BHCG, QUANTITATIVE [facility] Ordered by Cat Gutierrez RPA on 07/31/2020 Collected: 07/31/2020 Reported: 07/31/2020 16:53 B-HCG [facility] [address] MilliInternationalUnitsPerMilliLiter_[Arbitrary_Con (0-10) H (High) Note: @Instrument will [...] are final unless otherwise noted. Reported Physicians [facility] Ordered by Cat Gutierrez RPA on 07/31/2020 Collected: 07/31/2020 Reported: 07/31/2020 16:53 Reported Physicians See Note None Note: Reported Physicians:Ordering: Jannet barton: Cat Gutierrez Reviewed by aCt Gutierrez RPA on 08/01; All test results are final unless otherwise noted. UA W/ CULTURE IF ABNORMAL [facility] Ordered by Cat Gutierrez RPA on 07/27/2020 Collected: 07/27/2020 Reported: 07/27/2020 21:36 Urobilinogen Ur Ql See Note (0.2-1 EU/dl) None Note: 0.2 EU/dl0.2 EU/[id number] E U/dlResponsible Observer: UROBILINOGEN UROBILINOGEN 300.4500 (C) RBC # Ur Strip NEGATIVE (NEGATIVE) None Note: Responsible Observer: BLOOD BLOOD 300.4652 (C) Prot Ur Ql Strip See Note (NEGATIVE) None Note: [id number] EResponsible Observer: PROTEIN PROTEIN 300.3750 (C) Ketones Ur Ql Strip See Note (NEGATIVE) None Note: [id number] EResponsible Observer: KETONE KETONE 300.3900 (C) Bilirub Ur Ql Strip.auto See Note (NEGATIVE) None Note: [id number] EResponsible Observer: BILIRUBIN BILIRUBIN 300.4550 (C) Glucose Ur Strip.auto-mCnc NEGATIVE (NEGATIVE) None Note: Responsible Observer: GLUCOSE GLUC OSE 300.3850 (C) Appearance Ur See Note (CLEAR) None Note: CLEARCLEARLCLEARResponsible Observ er: APPEARANCE APPEARANCE 300.3400 (A) Color Ur See Note None Note: YELLOWYELLOWLYELLOWResponsible Obs erver: COLOR COLOR 300.3330 (A) Leukocyte esterase Ur Ql Strip See Note (NEGATIVE) None Note: [id number]@DO MICR O!!!!A Culture has been added to this specimen per established criteriaResponsible Observer: LEUKOCYTES LEUKOCYTES 300.3576 (C) Nitrite Ur Ql Strip See Note (NEGATIVE) None Note: [id number] EResponsible Observer: NITRITE NITRITE 300.3652 (B) pH [...] of Collection:: Voided Reviewed by Cat Gutierrez [facility] on 07/31; All test results are final unless otherwise noted. Urine culture [facility] Ordered by Cat Gutierrez [facility] on 07/27/2020 Collected: 07/27/2020 Reported: 07/29/2020 07:36 Urine culture result 50,000 CFU/ML Lactobacilli no senst done None NOTES See Note None Note: @07/27/202136: Urine culture adde d. RFLXG = CULT.ADD. Reviewed by Cat Gutierrez [facility] on 07/31; All test results are final unless otherwise noted. Reported Physicians [facility] Ordered by Cat Gutierrez [facility] on 07/27/2020 Collected: 07/27/2020 Reported: 07/29/2020 07:37 Reported Physicians See Note None Note: Reported Physicians:Ordering: Daquan BustamanteAttending: Ariella Good To: Maya Barron Reviewed by Cat Gutierrez [facility] on 07/31; All test results are final unless otherwise noted. ADD ON MICROSCOPIC [facility] Ordered by Cat Gutierrez [facility] on 07/27/2020 Collected: 07/27/2020 Reported: 07/27/2020 21:36 ADD ON MICROSCOPIC See Note (0-5) None Note: NOTES OTHER/NOT INTERPRETED Bacteria UrnS Ql Micro SMALL AMOUNT Bacteria UrnS Ql Micro SMALL AMOUNT Bacteria UrnS Ql Micro L Bacteria UrnS Ql Micro Bacteria UrnS Ql Micro Bacteria UrnS Ql Micro Bacteria UrnS Ql Micro [id number] Bacteria UrnS Ql Micro Bacteria UrnS Ql [...] are final unless otherwise noted. Reported Physicians [facility] Ordered by Cat Gutierrez RPA on 07/27/2020 Collected: 07/27/2020 Reported: 07/27/2020 21:37 Reported Physicians See Note None Note: Reported Physicians:Ordering: Carmina BustamanteisalAttending: Carmina GoodisalCopy To: Maya Barron Reviewed by Cat Gutierrez RPA on 07/28; All test results are final unless otherwise noted. BHCG, QUANTITATIVE [facility] Ordered by Cat Gutierrez RPA on 07/27/2020 Collected: 07/27/2020 Reported: 07/27/2020 22:08 B-HCG [facility] [address] MilliInternationalUnitsPerMilliLiter_[Arbitrary_Con (0-10) H (High) Note: @Instrument [...] are final unless otherwise noted. Reported Physicians [facility] Ordered by Cat Gutierrez RPA on 07/27/2020 Collected: 07/27/2020 Reported: 07/27/2020 22:08 Reported Physicians See Note None Note: Reported Physicians:Ordering: Daquan BustamanteAttending: Daquan GoodCopyifan To: Maya Barron Reviewed by Cat Gutierrez RPA on 07/28; All test results are final unless otherwise noted. CMP [facility] Ordered by Cat Gutierrez RPA on [...] are final unless otherwise noted. Reported Physicians [facility] Ordered by Cat Gutierrez RPA on 07/27/2020 Collected: 07/27/2020 Reported: 07/27/2020 20:37 Reported Physicians See Note None Note: Reported Physicians:Ordering: Daquan BustamanteAttending: Daquan GoodCopy To: Maya Barron Reviewed by Cat Gutierrez RPA on 07/28; All test results are final unless otherwise noted. Type and Screen [facility] Ordered by Cat Gutierrez RPA on [...] are final unless otherwise noted. Reported Physicians [facility] Ordered by Cat Gutierrez RPA on 07/27/2020 Collected: 07/27/2020 Reported: 07/27/2020 20:48 Reported Physicians See Note None Note: Reported Physicians:Ordering: Daquan BustamanteAttending: Ariella Good To: Maya Barron Reviewed by Cat Gutierrez RPA on 07/28; All test results are final unless otherwise noted. CBC W AUTO DIFF [facility] Ordered by Cat Gutierrez RPA on [...] Auto See Note (0-2) N (Normal) Note: [id number] Ob service observer chief: IG% IG% 100.1375 (B) Hct VFr Bld [...] are final unless otherwise noted. Reported Physicians [facility] Ordered by Cat Gutierrez RPA on 07/27/2020 Collected: 07/27/2020 Reported: 07/27/2020 20:11 Reported Physicians See Note None Note: Reported Physicians:Ordering: Daquan BustamanteAttending: Daquan GoodCopyifan To: Maya Barron Reviewed by Cat Gutierrez RPA on 07/28; All test results are final unless otherwise noted. BHCG, QUANTITATIVE [facility] Ordered by Maya Barron MD on 07/26/2020 Collected: 07/26/2020 Reported: 07/26/2020 16:48 B-HCG SerPl-aCnc 4155 MilliInternationalUnitsPerMilliLiter_[Arbitrary_Con (0-10) H (High) Note: @Instrument [...] NAME IN SYSTEM IS FILIBERTO Reviewed by Maya Barron MD on 07/27; All test results are final unless otherwise noted. Reported Physicians [facility] Ordered by Maya Barron MD on 07/26/2020 Collected: 07/26/2020 Reported: 07/26/2020 16:48 Reported Physicians See Note None Note: Reported Physicians:Ordering: Maya AlvarengaAttending: Maya Barron Reviewed by Maya Barron MD on 07/27; All test results are final unless otherwise noted. Sweta Raquel SARS/FLU [facility] Ordered by Bandar Cleveland PA-C on 07/25/2020 Collected: 07/25/2020 Reported: 07/25/2020 18:47 Sweta Raquel SARS/FLU See Note None Note: Sweta Raquel is a rapid, automated q ualitative anddifferentiation of Influenza type A,B and LGQP-UOG-7FXRP-RT-PCR testNORMAL VALUE IS "NOT DETECTED".Limitations of the sweta raquel Influenza A/B & JHJC-QKQ-7vowwz method.Modifications to manufacturers recommendation and proceduresmay alter performance of the test.Negative results do not preclude Influenza A,B or SARS- XEM2ebqubrgfnn and should not be used as the [...] out diseases caused by other bacterialor viral pathogens.[id number]-RcA-0 RNA Resp Ql ТАТЬЯНА+probeLNNOSNo O rganisms [id number] Organisms Detected Reviewed by Bandar Cleveland PA-C on ; All test results are final unless otherwise noted. Reported Physicians [facility] Ordered by Bandar Cleveland PA-C on 07/25/2020 Collected: 07/25/2020 Reported: 07/25/2020 18:47 Reported Physicians See Note None Note: Reported Physicians:Ordering: Connie Wilsonttending: Kami Cleveland To: Health, Public Reviewed by Bandar Cleveland PA-C on ; All test results are final unless otherwise noted. Extended hours FLU/COV2 NAAT [facility] Ordered by Bandar Cleveland PA-C on 07/25/2020 Collected: 07/25/2020 Reported: 07/25/2020 18:47 Extended hours FLU/COV2 NAAT See Note None Note: TNPNo Reportable ResultLTNPNo Repo rtable JjfckbH7QSR Reviewed by Bandar Cleveland PA-C on ; All test results are final unless otherwise noted. Reported Physicians [facility] Ordered by Bandar Cleveland PA-C on 07/25/2020 Collected: 07/25/2020 Reported: 07/25/2020 18:47 Reported Physicians See Note None Note: Reported Physicians:Ordering: Janice Wilsonending: Kami Cleveland To: Health, Public Reviewed by Bandar Cleveland PA-C on ; All test results are final unless otherwise noted. CBC W AUTO DIFF [facility] Ordered by Maya Barron MD on [...] Auto See Note (0-2) N (Normal) Note: [id number] Ob service observer chief: IG% IG% 100.1375 (B) Hct VFr Bld [...] test results are final unless otherwise noted. [facility] Ordered by Maya Barron MD on [...] are final unless otherwise noted. Reported Physicians [facility] Ordered by Maya Barron MD on 07/22/2020 Collected: 07/22/2020 Reported: 07/22/2020 02:00 Reported Physicians See Note None Note: Reported Physicians:Ordering: Mill s, IsaacAttending: Hong DouglasCopyifan To: Maya Barron Reviewed by Maya Barron MD on 07/24; All test results are final unless otherwise noted. UA W/ CULTURE IF ABNORMAL [facility] Ordered by Maya Barron MD on 07/22/2020 Collected: 07/22/2020 Reported: 07/22/2020 01:10 Urobilinogen Ur Ql See Note (0.2-1 EU/dl) None Note: 0.2 EU/dl0.2 EU/waH08602492354.2 E U/dlResponsible Observer: UROBILINOGEN UROBILINOGEN 300.4500 (C) RBC # Ur Strip NEGATIVE (NEGATIVE) None Note: Responsible Observer: BLOOD BLOOD 300.4652 (C) Prot Ur Ql Strip See Note (NEGATIVE) None Note: [id number] EResponsible Observer: PROTEIN PROTEIN 300.3750 (C) Ketones Ur Ql Strip See Note (NEGATIVE) None Note: [id number] EResponsible Observer: KETONE KETONE 300.3900 (C) Bilirub Ur Ql Strip.auto See Note (NEGATIVE) None Note: [id number] EResponsible Observer: BILIRUBIN BILIRUBIN 300.4550 (C) Glucose Ur Strip.auto-mCnc NEGATIVE (NEGATIVE) None Note: Responsible Observer: GLUCOSE GLUC OSE 300.3850 (C) Appearance Ur See Note (CLEAR) None Note: CLEARCLEARLCLEARResponsible Observ er: APPEARANCE APPEARANCE 300.3400 (A) Color Ur See Note None Note: YELLOWYELLOWLYELLOWResponsible Obs erver: COLOR COLOR 300.3330 (A) Leukocyte esterase Ur Ql Strip See Note (NEGATIVE) None Note: [id number] EResponsible Observer: LEUKOCYTES LEUKOCYTES 300.3576 (C) Nitrite Ur Ql Strip See Note (NEGATIVE) None Note: [id number] EResponsible Observer: NITRITE NITRITE 300.3652 (B) pH [...] are final unless otherwise noted. Reported Physicians [facility] Ordered by Maya Barron MD on 07/22/2020 Collected: 07/22/2020 Reported: 07/22/2020 01:11 Reported Physicians See Note None Note: Reported Physicians:Ordering: Dominic Landaverdeending: Alon Douglas To: Maya Barron Reviewed by Maya Barron MD on 07/24; All test results are final unless otherwise noted. Sweta Raquel SARS/FLU [facility] Ordered by Maya Barron MD on 07/22/2020 Collected: 07/22/2020 Reported: 07/22/2020 01:29 Sweta Raquel SARS/FLU See Note None Note: Sweta Raquel is a rapid, automated q ualitative anddifferentiation of Influenza type A,B and GRQU-KDU-8DSZY-RT-PCR testNORMAL VALUE IS "NOT DETECTED".Limitations of the sweta raquel Influenza A/B & XLNT-LKG-1zylod method.Modifications to manufacturers recommendation and proceduresmay alter performance of the test.Negative results do not preclude Influenza A,B or SARS- PMD1acyymcymry and should not be used as the [...] out diseases caused by other bacterialor viral pathogens.82622-3LQRM-WhZ-3 RNA Resp Ql ТАТЬЯНА+probeLNNOSNo O rganisms [id number] Organisms Detected Reviewed by Maya Barron MD on 07/24; All test results are final unless otherwise noted. Reported Physicians [facility] Ordered by Maya Barron MD on 07/22/2020 Collected: 07/22/2020 Reported: 07/22/2020 01:29 Reported Physicians See Note None Note: Reported Physicians:Ordering: Hong LandaverdeAttending: Alon Douglas To: Maya Barron Reviewed by Maya Barron MD on 07/24; All test results are final unless otherwise noted. Extended hours FLU/COV2 NAAT [facility] Ordered by Maya Barron MD on 07/22/2020 Collected: 07/22/2020 Reported: 07/22/2020 01:29 Extended hours FLU/COV2 NAAT See Note None Note: TNPNo Reportable ResultLTNPNo Repo rtable MpydkzG4VMO Reviewed by Maya Barron MD on 07/24; All test results are final unless otherwise noted. Reported Physicians [facility] Ordered by Maya Barron MD on 07/22/2020 Collected: 07/22/2020 Reported: 07/22/2020 01:29 Reported Physicians See Note None Note: Reported Physicians:Ordering: Hong LandaverdeAttending: Alon Douglas To: Maya Barron Reviewed by Maya Barron MD on 07/24; All test results are final unless otherwise noted. Urine culture [facility] Ordered by Maya Barron MD on 07/19/2020 Collected: 07/19/2020 Reported: 07/21/2020 07:48 Bacteria Ur Cult See Note None Note: NGNo growth.L1NG Reviewed by Maya Barron MD on 07/21; All test results are final unless otherwise noted. Reported Physicians [facility] Ordered by Maya Barron MD on 07/19/2020 Collected: 07/19/2020 Reported: 07/21/2020 07:49 Reported Physicians See Note None Note: Reported Physicians:Ordering: Maya AlvarengaAttending: Maya Barron Reviewed by Maya Barron MD on 07/21; All test results are final unless otherwise noted. BHCG, QUANTITATIVE [facility] Ordered by Maya Barron MD on [...] are final unless otherwise noted. Reported Physicians [facility] Ordered by Maya Barron MD on 07/17/2020 Collected: 07/17/2020 Reported: 07/17/2020 12:40 Reported Physicians See Note None Note: Reported Physicians:Ordering: Maya AlvarengaAttending: Maya Barron Reviewed by Maya Barron MD on 07/17; All test results are final unless otherwise noted. [place] COVID-[address] [facility] Ordered by Maya Barron MD on [...] molecular test, if the virus mutates in [facility] region, Covid-19 may not be detected or may bedetected less predictably.ID NOW COVID-19 is intended for testing a swab directlywithout elution in viral transport media as dilution willresult in decreased detection of low positive samples thatare near the limit of detection of the test.SWAB SAMPLES ELUTED IN VTM ARE NOT APPROPRIATE FOR USE INTHIS TEST.NOSNo Organisms [id number] Organisms Detected Reviewed by Maya Barron MD on 05/31; All test results are final unless otherwise noted. Reported Physicians [facility] Ordered by Maya Barron MD on 05/31/2020 Collected: 05/31/2020 Reported: 05/31/2020 07:08 Reported Physicians See Note None Note: Reported Physicians:Ordering: Johnny Hernándezending: Suzanne Cazares To: Maya Barron Reviewed by Maya Barron MD on 05/31; All test results are final unless otherwise noted. BHCG, QUANTITATIVE [facility] Ordered by Maya Barron MD on 05/26/2020 Collected: 05/26/2020 Reported: 05/26/2020 14:49 B-HCG [facility] [address] MilliInternationalUnitsPerMilliLiter_[Arbitrary_Con (0-10) H (High) Note: @Instrument will [...] are final unless otherwise noted. Reported Physicians [facility] Ordered by Maya Barron MD on 05/26/2020 Collected: 05/26/2020 Reported: 05/26/2020 14:50 Reported Physicians See Note None Note: Reported Physicians:Ordering: McHu gh, KathrynAttending: Maya Barron Reviewed by Maya Barron MD on 05/26; All test results are final unless otherwise noted. URINALYSIS [facility] Ordered by Maya Barron MD on 05/23/2020 Collected: 05/23/2020 Reported: 05/23/2020 17:19 Urobilinogen Ur Ql See Note (0.2-1 EU/dl) None Note: 0.2 EU/dl0.2 EU/[id number] E U/dlResponsible Observer: UROBILINOGEN UROBILINOGEN 300.4500 (C) RBC # Ur Strip NEGATIVE (NEGATIVE) None Note: Responsible Observer: BLOOD BLOOD 300.4650 (C) Prot Ur Ql Strip See Note (NEGATIVE) None Note: [id number] EResponsible Observer: PROTEIN PROTEIN 300.3750 (C) Ketones Ur Ql Strip See Note (NEGATIVE) None Note: [id number] EResponsible Observer: KETONE KETONE 300.3900 (C) Bilirub Ur Ql Strip.auto See Note (NEGATIVE) None Note: [id number] EResponsible Observer: BILIRUBIN BILIRUBIN 300.4550 (C) Glucose Ur Strip.auto-mCnc NEGATIVE (NEGATIVE) None Note: Responsible Observer: GLUCOSE GLUC OSE 300.3850 (C) Appearance Ur See Note (CLEAR) None Note: CLEARCLEARLCLEARResponsible Observ er: APPEARANCE APPEARANCE 300.3400 (A) Color Ur See Note None Note: YELLOWYELLOWLYELLOWResponsible Obs erver: COLOR COLOR 300.3300 (A) Leukocyte esterase Ur Ql Strip See Note (NEGATIVE) None Note: [id number] EResponsible Observer: LEUKOCYTES LEUKOCYTES 300.3575 (C) Nitrite Ur Ql Strip See Note (NEGATIVE) None Note: [id number] EResponsible Observer: NITRITE NITRITE 300.3650 (B) pH [...] are final unless otherwise noted. Urine culture [facility] Ordered by Maya Barron MD on 05/23/2020 Collected: 05/23/2020 Reported: 05/24/2020 09:24 Bacteria Ur Cult See Note None Note: NGNo growth.L1NG Reviewed by Maya Barron MD on 05/29; All test results are final unless otherwise noted. MEDMATCH [facility] Ordered by Maya Barorn MD on 05/23/2020 Collected: 05/23/2020 Reported: 05/26/2020 17:09 MEDMATCH 1.000 (> or = 1.003) None Note: Responsible Observer: MEDMATCH MED MATCH [phone] ([facility]) Reviewed by Maya Barron MD on 05/29; All test results are final unless otherwise noted. Reported Physicians [facility] Ordered by Maya Barron MD on 05/23/2020 Collected: 05/23/2020 Reported: 05/26/2020 17:09 Reported Physicians See Note None Note: Reported Physicians:Ordering: Maya AlvarengaAttending: Maya Barron Reviewed by Maya Barron MD on 05/29; All test results are final unless otherwise noted. Varicella-Zoster IgG Antibody [facility] Ordered by Maya Barron MD on 05/23/2020 Collected: 05/23/2020 Reported: 05/25/2020 17:11 VZV IgG Ser IA-aCn 244.10 None Note: Index Interpr etation --------- [...] Antibody Immunity Screen, ACIF.THIS TEST WAS PERFORMED AT:[facility] [id number] ME RATI,MDResponsible Observer: VARICELLA IGG Varicella-Zoster IgG Antibody [id number] 257.8157 ([place]) NOTES See Note None Note: Patient Street Address: [address] City: [facility] State: [facility] Zip Code: [address] Reviewed by Maya Barron MD on 05/26; All test results are final unless otherwise noted. Reported Physicians [facility] Ordered by Maya Barron MD on 05/23/2020 Collected: 05/23/2020 Reported: 05/25/2020 17:11 Reported Physicians See Note None Note: Reported Physicians:Ordering: Maya AlvarengaAttending: Maya Barron Reviewed by Maya Barron MD on 05/26; All test results are final unless otherwise noted. CBC [facility] Ordered by Maya Barron MD on [...] Auto See Note (0-2) N (Normal) Note: [id number] Ob service observer chief: IG% IG% 100.1375 (B) Hct VFr Bld [...] results are final unless otherwise noted. TSH [facility] Ordered by Maya Barron MD on 05/23/2020 Collected: 05/23/2020 Reported: 05/23/2020 18:38 TSH SerPl DL<=0.005 mIU/L-aCnc 1.87 MicroInternationalUnitsPerMilliLiter_[Arbitrary_Con (0.35-5. 50) N (Normal) Note: Responsible Observer: TSH TSH 600 .7055 (D) Reviewed by Maya Barron MD on 05/29; All test results are final unless otherwise noted. Lead (Venous) Wh.Bld [facility] Ordered by Maya Barron MD on 05/23/2020 Collected: 05/23/2020 Reported: 05/25/2020 17:11 Lead Bld-sCnc <1 (<5) None Note: See Note 1Note 1This test was faith desirtigist and its analytical performancecharacteristics have been determined by [employer]. It has not been cleared or approved by theA. This assay has been validated pursuant to the CLIAregulations and is used for clinical purposes.THIS TEST WAS PERFORMED AT:[facility] [id number] MIGUELANGEL,MDResponsible Observer: Lead, WB Lead, Whole Blood [id number] 911.2190 ([facility]) NOTES See Note None Note: Patient Street Address: [facility] [address] City: [facility] State: [facility] Zip Code: [address] Reviewed by Maya Barron MD on 05/29; All test results are final unless otherwise noted. [place] [facility] REF [facility] Ordered by Maya Barron MD on 05/23/2020 Collected: 05/23/2020 Reported: 05/27/2020 20:54 T pallidum Ab Ser Ql Aggl See Note (Nonreactive) None Note: [id number] onreactiveResponsible Observer: TP-PA Treponema pallidum Ab (TP-PA) [id number] 908.0286 ([facility]) HIV1 RNA SerPl Ql ТАТЬЯНА+probe See Note None Note: TNPNo Reportable ResultLTNPNo Repo rtable ResultLLEP.LIVENTNPResponsible Observer: HIV 1 RNA, QL T HIV 1 RNA, QL TMA [id number] 908.0254 ([facility]) HBV surface Ag SerPl Ql IA See Note (NON-REACTIVE) None Note: CLC-XKKNTPYNKZP-[id number] 0NON-REACTIVEResponsible Observer: HBSAG Hepatitis B Surface Antigen [id number] 910.2004 ([facility]) RUBV IgG SerPl IA-aCnc 1.80 None Note: Index Interpretatio n ----- <0.90 Not consistent with Immunity 0.90-0.99 Equivocal > or = 1.00 Consistent with ImmunityThe presence of rubella IgG antibody suggestsimmunization or past or current infection withrubella virus.THIS TEST WAS PERFORMED AT:[facility] [id number] MERATI,MDResponsible Observer: Rubella IgG Ab Rubella IgG Ab [id number] 911.2840 ([facility]) HIV1 Ab SerPlBld Ql IA.rapid See Note None Note: TNPNo Reportable ResultLTNPNo Repo rtable ResultLLEP.LIVENTNPResponsible Observer: HIV 1 AB HIV 1 AB [id number] 908.0250 ([facility]) HBsAg Confirmation See Note None Note: TNPNo Reportable ResultLTNPNo Repo rtable ResultLLEP.LIVENTNPResponsible Observer: HBsAg Confirm HBsAg Confirmation [id number] 910.2006 ([facility]) HIV (1&2) Screen, 4th Gen [...] for this purpose.For additional information please refer tohttp://education.[employer]/faq/SFF001(This link is being provided for informational/educational purposes only.)The performance of this assay has not been clinicallyvalidated in patients less than 2 years old.Responsible Observer: HIV ABS HIV (1&2) Screen, 4th Gen [id number] 908.0228 (I) Reviewed by Maya Barron MD on 05/29; All test results are final unless otherwise noted. Reported Physicians [facility] Ordered by Maya Barron MD on 05/23/2020 Collected: 05/23/2020 Reported: 05/27/2020 20:54 Reported Physicians See Note None Note: Reported Physicians:Ordering: Maya AlvarengaAttending: Maya Barron Reviewed by Maya Barron MD on 05/29; All test results are final unless otherwise noted. HCV RFX ТАТЬЯНА [facility] Ordered by Maya Barron MD on 05/23/2020 Collected: 05/23/2020 Reported: 05/25/2020 17:11 HCV Ab Ser Ql See Note (NON-REACTIVE) None Note: [id number] 7NON-REACTIVEResponsible Observer: HEP C ANTIBODY Hepatitis C Antibody [id number] [phone] ([facility]) HCV RNA Qualitative (ТАТЬЯНА) 0.59 (<1.00) None Note: HCV antibody was non-reactive. The re is no laboratoryevidence of HCV infection.In most cases, no further action is required. However,if recent HCV exposure is suspected, a test for HCV RNA(test code 01008) is suggested.For additional information please refer tohttp://education.Doist/faq/QDN67e6(This link is being provided for informational/educational purposes only.)THIS TEST WAS PERFORMED AT:[facility] [id number] ONEILLesponsible Observer: SIG TO C/O SIGNAL TO CUTOFF [id number] [phone] ([facility]) NOTES See Note None Note: Patient Street Address: [facility] [address] [facility] Zip Code: [address] Reviewed by Maya Barron MD on 05/26; All test results are final unless otherwise noted. Reported Physicians [facility] Ordered by Maya Barron MD on 05/23/2020 Collected: 05/23/2020 Reported: 05/25/2020 17:11 Reported Physicians See Note None Note: Reported Physicians:Ordering: Maya AlvarengaAttending: Maya Barron Reviewed by Myaa Barron MD on 05/26; All test results are final unless otherwise noted. Type and Screen [facility] Ordered by Maya Barron MD on [...] are final unless otherwise noted. Reported Physicians [facility] Ordered by Maya Barron MD on 05/23/2020 Collected: 05/23/2020 Reported: 05/23/2020 19:32 Reported Physicians See Note None Note: Reported Physicians:Ordering: Maya AlvarengaAttending: Maya Barron Reviewed by Maya Barron MD on 05/24; All test results are final unless otherwise noted. PROGESTERONE [facility] Ordered by Maya Barron MD on [...] are final unless otherwise noted. Reported Physicians [facility] Ordered by Maya Barron MD on 04/27/2020 Collected: 04/27/2020 Reported: 04/27/2020 15:58 Reported Physicians See Note None Note: Reported Physicians:Ordering: Johnny HernándezAttending: Cristino CastellanosCopyifan To: Rubén Barron To: Cristino Castellanos Reviewed by Maya Barron MD on 04/30; All test results are final unless otherwise noted. BHCG, QUANTITATIVE [facility] Ordered by Maya Barron MD on [...] are final unless otherwise noted. Reported Physicians [facility] Ordered by Maya Barron MD on 04/27/2020 Collected: 04/27/2020 Reported: 04/27/2020 14:40 Reported Physicians See Note None Note: Reported Physicians:Ordering: Aj Snowending: Jos Castellanos To: Suzanne Cazares To: Maya Barron Reviewed by Maya Barron MD on 04/30; All test results are final unless otherwise noted. CBC W AUTO DIFF [facility] Ordered by Maya Barron MD on [...] Auto See Note (0-2) N (Normal) Note: [id number] Ob service observer chief: IG% IG% 100.1375 (B) Hct VFr Bld [...] test results are final unless otherwise noted. [facility] Ordered by Maya Barron MD on [...] are final unless otherwise noted. Reported Physicians [facility] Ordered by Maya Barron MD on 04/25/2020 Collected: 04/25/2020 Reported: 04/25/2020 22:11 Reported Physicians See Note None Note: Reported Physicians:Ordering: Aj Ferreiraending: Jos Rivas To: Maya Barron Reviewed by Maya Barron MD on 04/26; All test results are final unless otherwise noted. BHCG, QUANTITATIVE [facility] Ordered by Maya Barron MD on [...] are final unless otherwise noted. Reported Physicians [facility] Ordered by Maya Barron MD on 04/25/2020 Collected: 04/25/2020 Reported: 04/25/2020 22:11 Reported Physicians See Note None Note: Reported Physicians:Ordering: Aj Ferreiraending: Jos Rivas To: Maya Barron Reviewed by Maya Barron MD on 04/26; All test results are final unless otherwise noted. Urine culture [facility] Ordered by Maya Barron MD on 04/25/2020 Collected: 04/25/2020 Reported: 04/27/2020 04:50 Bacteria Ur Cult See Note None Note: NGNo growth.L1NG NOTES See Note None Note: @ NICOLE DATE was changed from 04/26 to 04/25/20@ by POMCY. Reviewed by Maya Barron MD on 04/30; All test results are final unless otherwise noted. Reported Physicians [facility] Ordered by Maya Barron MD on 04/25/2020 Collected: 04/25/2020 Reported: 04/27/2020 04:51 Reported Physicians See Note None Note: Reported Physicians:Ordering: Aj Ferreiraending: Jos Rivas To: Maya Barron Reviewed by Maya Barron MD on 04/30; All test results are final unless otherwise noted. ADD ON MICROSCOPIC [facility] Ordered by Maya Barron MD on 04/25/2020 Collected: 04/25/2020 Reported: 04/25/2020 21:54 ADD ON MICROSCOPIC See Note (0-5) None Note: NOTES OTHER/NOT INTERPRETED Bacteria UrnS Ql Micro SMALL AMOUNT Bacteria UrnS Ql Micro SMALL AMOUNT Bacteria UrnS Ql Micro L Bacteria UrnS Ql Micro Bacteria UrnS Ql Micro Bacteria UrnS Ql Micro Bacteria UrnS Ql Micro [id number] Bacteria UrnS Ql Micro Bacteria UrnS Ql [...] are final unless otherwise noted. Reported Physicians [facility] Ordered by Maya Barron MD on 04/25/2020 Collected: 04/25/2020 Reported: 04/25/2020 21:54 Reported Physicians See Note None Note: Reported Physicians:Ordering: Cristino FerreiraAttending: Cristino RivasCopyifan To: Maya Barron Reviewed by Maya Barron MD on 04/26; All test results are final unless otherwise noted. URINALYSIS [facility] Ordered by Maya Barron MD on 04/25/2020 Collected: 04/25/2020 Reported: 04/25/2020 21:54 Urobilinogen Ur Ql See Note (0.2-1 EU/dl) None Note: 0.2 EU/dl0.2 [id number] E U/dlResponsible Observer: UROBILINOGEN UROBILINOGEN 300.4500 (C) RBC # Ur Strip NEGATIVE (NEGATIVE) None Note: Responsible Observer: BLOOD BLOOD 300.4650 (C) Prot Ur Ql Strip See Note (NEGATIVE) None Note: [id number] EResponsible Observer: PROTEIN PROTEIN 300.3750 (C) Ketones Ur Ql Strip See Note (NEGATIVE) None Note: [id number] EResponsible Observer: KETONE KETONE 300.3900 (C) Bilirub Ur Ql Strip.auto See Note (NEGATIVE) None Note: [id number] EResponsible Observer: BILIRUBIN BILIRUBIN 300.4550 (C) Glucose Ur Strip.auto-mCnc NEGATIVE (NEGATIVE) None Note: Responsible Observer: GLUCOSE GLUC OSE 300.3850 (C) Appearance Ur See Note (CLEAR) None Note: CLEARCLEARLCLEARResponsible Observ er: APPEARANCE APPEARANCE 300.3400 (A) Color Ur See Note None Note: YELLOWYELLOWLYELLOWResponsible Obs erver: COLOR COLOR 300.3300 (A) Leukocyte esterase Ur Ql Strip See Note (NEGATIVE) None Note: [id number]@DO MICR O!!!!Responsible Observer: LEUKOCYTES LEUKOCYTES 300.3575 (C) Nitrite Ur Ql Strip See Note (NEGATIVE) None Note: [id number] EResponsible Observer: NITRITE NITRITE 300.3650 (B) pH [...] are final unless otherwise noted. Reported Physicians [facility] Ordered by Maya Barron MD on 04/25/2020 Collected: 04/25/2020 Reported: 04/25/2020 21:54 Reported Physicians See Note None Note: Reported Physicians:Ordering: Aj Ferreiraending: Jos Rivas To: Maya Barron Reviewed by Maya Barron MD on 04/26; All test results are final unless otherwise noted. BHCG, QUANTITATIVE [facility] Ordered by Maya Barron MD on [...] are final unless otherwise noted. Reported Physicians [facility] Ordered by Maya Barron MD on 04/18/2020 Collected: 04/18/2020 Reported: 04/18/2020 15:11 Reported Physicians See Note None Note: Reported Physicians:Ordering: Maya AlvarengaAttending: Maya Barron Reviewed by Maya Barron MD on 04/19; All test results are final unless otherwise noted. ADD ON MICROSCOPIC [facility] Ordered by Maya Barron MD on 04/16/2020 Collected: 04/16/2020 Reported: 04/16/2020 23:51 ADD ON MICROSCOPIC See Note (0-5) None Note: NOTES OTHER/NOT INTERPRETED Bacteria UrnS Ql Micro SMALL AMOUNT Bacteria UrnS Ql Micro SMALL AMOUNT Bacteria UrnS Ql Micro L Bacteria UrnS Ql Micro Bacteria UrnS Ql Micro Bacteria UrnS Ql Micro Bacteria UrnS Ql Micro [id number] Bacteria UrnS Ql Micro Bacteria UrnS Ql [...] are final unless otherwise noted. Reported Physicians [facility] Ordered by Maya Barron MD on 04/16/2020 Collected: 04/16/2020 Reported: 04/16/2020 23:52 Reported Physicians See Note None Note: Reported Physicians:Ordering: Jose E JoseodAttending: Jose E JoseodCopyifan To: Maya Barron Reviewed by Maya Barron MD on 04/17; All test results are final unless otherwise noted. UA W/ CULTURE IF ABNORMAL [facility] Ordered by Maya Barron MD on 04/16/2020 Collected: 04/16/2020 Reported: 04/16/2020 23:51 Urobilinogen Ur Ql See Note (0.2-1 EU/dl) None Note: 0.2 EU/dl0.2 [id number] E U/dlResponsible Observer: UROBILINOGEN UROBILINOGEN 300.4500 (C) RBC # Ur Strip NEGATIVE (NEGATIVE) None Note: Responsible Observer: BLOOD BLOOD 300.4652 (C) Prot Ur Ql Strip See Note (NEGATIVE) None Note: [id number] EResponsible Observer: PROTEIN PROTEIN 300.3750 (C) Ketones Ur Ql Strip See Note (NEGATIVE) None Note: [id number] ble Observer: KETONE KETONE 300.3900 (C) Bilirub Ur Ql Strip.auto See Note (NEGATIVE) None Note: [id number] EResponsible Observer: BILIRUBIN BILIRUBIN 300.4550 (C) Glucose Ur Strip.auto-mCnc NEGATIVE (NEGATIVE) None Note: Responsible Observer: GLUCOSE GLUC OSE 300.3850 (C) Appearance Ur See Note (CLEAR) None Note: CLEARCLEARLCLEARResponsible Observ er: APPEARANCE APPEARANCE 300.3400 (A) Color Ur See Note None Note: YELLOWYELLOWLYELLOWResponsible Obs erver: COLOR COLOR 300.3330 (A) Leukocyte esterase Ur Ql Strip See Note (NEGATIVE) None Note: [id number] E@DO MICRO!!!!A Culture has been added to this specimen per established criteriaResponsible Observer: LEUKOCYTES LEUKOCYTES 300.3576 (C) Nitrite Ur Ql Strip See Note (NEGATIVE) None Note: [id number] EResponsible Observer: NITRITE NITRITE 300.3652 (B) pH [...] are final unless otherwise noted. Urine culture [facility] Ordered by Maya Barron MD on 04/16/2020 Collected: 04/16/2020 Reported: 04/18/2020 06:47 Urine culture result See Note None Note: Less than 10,000 CFU/MLNormal Comm ensal FloraProbable contaminants no senst done NOTES See Note None Note: @04/16/20 2351: Urine culture adde d. RFLXG = CULT.ADD. Reviewed by Maya Barron MD on 04/18; All test results are final unless otherwise noted. Reported Physicians [facility] Ordered by Maya Barron MD on 04/16/2020 Collected: 04/16/2020 Reported: 04/18/2020 06:47 Reported Physicians See Note None Note: Reported Physicians:Ordering: Damon , VinodAttending: Damon VinodCopy To: Maya Barron Reviewed by Maya Barron MD on 04/18; All test results are final unless otherwise noted. CBC W AUTO DIFF [facility] Ordered by Maya Barron MD on [...] Auto See Note (0-2) N (Normal) Note: [id number] Ob service observer chief: IG% IG% 100.1375 (B) Hct VFr Bld [...] are final unless otherwise noted. BHCG, QUANTITATIVE [facility] Ordered by Maya Barron MD on [...] are final unless otherwise noted. Reported Physicians [facility] Ordered by Maya Barron MD on 04/16/2020 Collected: 04/16/2020 Reported: 04/16/2020 22:47 Reported Physicians See Note None Note: Reported Physicians:Ordering: Damon , VinodAttending: Damon, VinodCopy To: Maya Barron Reviewed by Maya Barron MD on 04/17; All test results are final unless otherwise noted. CMP [facility] Ordered by Maya Barron MD on [...] are final unless otherwise noted. Reported Physicians [facility] Ordered by Maya Barron MD on 04/16/2020 Collected: 04/16/2020 Reported: 04/16/2020 22:44 Reported Physicians See Note None Note: Reported Physicians:Ordering: Jose E JoseodAttending: Damon, VinodCopy To: Maya Barron Reviewed by Maya Barron MD on 04/17; All test results are final unless otherwise noted. LIPASE [facility] Ordered by Maya Barron MD on 04/16/2020 Collected: 04/16/2020 Reported: 04/16/2020 22:44 Lipase SerPl-cCnc 107 enzyme_unit_per_liter (73-393) N (Normal) Note: Responsible Observer: Lipase Lipas e 400.2310 (G) Reviewed by Maya Barron MD on 04/17; All test results are final unless otherwise noted. Reported Physicians [facility] Ordered by Maya Barron MD on 04/16/2020 Collected: 04/16/2020 Reported: 04/16/2020 22:44 Reported Physicians See Note None Note: Reported Physicians:Ordering: Joes E JoseodAttending: Damon, VinodCopy To: Maya Barron Reviewed by Maya Barron MD on 04/17; All test results are final unless otherwise noted. Type and Screen [facility] Ordered by Maya Barron MD on [...] are final unless otherwise noted. Reported Physicians [facility] Ordered by Maya Barron MD on 04/16/2020 Collected: 04/16/2020 Reported: 04/16/2020 23:09 Reported Physicians See Note None Note: Reported Physicians:Ordering: Damon , Jose EodAttending: Damon, VinodCopy To: Maya Barron Reviewed by Maya Barron MD on 04/17; All test results are final unless otherwise noted. CBC [facility] Ordered by Maya Barron MD on 04/10/2020 [address] [place], [address] Collected: 04/10/2020 Reported: 04/11/2020 11:35 tel : ext. 1500 GRAN# 1.9 /mm3 (2.5-7.5) L (Low) Note: Responsible Observer: KM GRAN% 37.6 % (50.0-75.0) L (Low) Note: Responsible Observer: KM HCT 39.3 % (37-47) None Note: Responsible Observer: KM HGB 13.1 g/dl (12.0-17.4) None Note: Responsible Observer: KM LY# 2.9 /mm3 (1.3-4.0) None Note: Responsible Observer: KM LY% 56.4 % (25-40.0) H (High) Note: Responsible Observer: KM MCH 29.8 pg (27.0-34.0) None Note: Responsible Observer: KM MCHC 33.2 G/DL (30.0-35.0) None Note: Responsible Observer: KM MCV 89.7 um3 (76.0-94.0) None Note: Responsible Observer: KM MID# 0.3 /mm3 (0.1-0.7) None Note: Responsible Observer: KM MID% 6.0 % (3.0-7.0) None Note: Responsible Observer: KM MPV 9.7 um3 (8.0-15.0) None Note: Responsible Observer: KM PLT 189 /mm3 (150-440) None Note: Responsible Observer: KM RBC 4.38 /mm3 (4.00-5.50) None Note: Responsible Observer: KM RDW 15.6 % (13.0-15.0) H (High) Note: Responsible Observer: KM WBC 5.1 /mm3 (4.0-10.0) None Note: Responsible Observer: KM Reviewed by Maya Barron MD on 04/12; All test results are final unless otherwise noted. CMP [facility] Ordered by Maya Barron MD on 04/10/2020 [address] [place], [address] Collected: 04/10/2020 Reported: 04/11/2020 11:35 tel :[phone] ext. 1500 Albumin 4.2 g/dl (3.4-5.0) None Note: Responsible Observer: KM Alkaline Phos 88 IU/L (39-117) None Note: Responsible Observer: KM ALT 13 IU/L (4-40) None Note: Responsible Observer: KM AST 15 IU/L (4-37) None Note: Responsible Observer: KM Urea Nitrogen 12 mg/dl (6-20) None Note: Responsible Observer: KM Calcium 9.3 mg/dl (8.4-10.2) None Note: Responsible Observer: KM Chloride 105 mmol/L (96-108) None Note: Responsible Observer: KM CO2 19 mmol/L (23-31) L (Low) Note: Responsible Observer: KM Creatinine 0.6 mg/dl (0.5-1.2) None Note: Responsible Observer: KM EGFR - AfricanAm > 60 N/A (-) None Note: Responsible Observer: KM EGFR - Non AF AM > 60 N/A (-) None Note: Responsible Observer: KM Glucose 83 mg/dl (70-105) None Note: Responsible Observer: KM Potassium 3.5 mmol/L (3.2-5.4) None Note: Responsible Observer: KM Sodium 139 mmol/L (133-145) None Note: Responsible Observer: KM Total Bilirubin 0.8 mg/dl (0.0-1.2) None Note: Responsible Observer: KM Total Protein 6.3 g/dl (6.0-8.0) None Note: Responsible Observer: KM Reviewed by Maya Barron MD on 04/12; All test results are final unless otherwise noted. TSH [facility] Ordered by Maya Barron MD on 04/10/2020 [address] [place], [address] Collected: 04/10/2020 Reported: 04/11/2020 11:35 tel :[phone] ext. 1500 TSH 1.336 uIu/mL (0.5-5.8) None Note: Responsible Observer: AW Reviewed by Maya Barron MD on 04/12; All test results are final unless otherwise noted. Urinalysis w/out microscopy Office Lab Ordered by Maya Barron MD on [address] [facility], [place], [address] Specimen Source: Urine Collected: Reported: 2020 11:41 [...] Description Last Updated Under stress financially stressed, stru ggling with rent, food, living necessities 07/11/2020 Smoking status : Never smoker 08/07/2019 No consumption of alcohol 03/04/2018 No tobacco use 03/04/2018 Not using drugs 03/04/2018 Procedures and Surgical History Includes: Procedures from 03/28/2020 through 03/28/2021 Procedures Code Diagnosis Performing Provider Service Location Service Date REVISIT- office visit K[facility]LE[facility] 37 weeks gestatio n of Maya Barron MD [place], [facility] 03/13/2021 REVISIT- office visit [facility] 36 weeks gestatio n of Maya Barron MD [place], [facility] 03/07/2021 REVISIT- office visit [facility] 35 weeks gestatio n of Cat Gutierrez RPA [place], [facility] 02/27/2021 REVISIT- office visit [facility] 34 weeks gestatio n of Maya Barron MD [place], [facility] 02/23/2021 REVISIT- office visit [facility] 29 weeks gestatio n of Maya Barron MD [place], [facility] 01/16/2021 REVISIT- office visit K[facility]LE[facility] 27 weeks gestatio n of Maya Barron MD [place], [facility] 12/26/2020 REVISIT- office visit K[facility] 23 weeks gestatio n of Maya Barron MD [place], [facility] 12/05/2020 REVISIT- office visit K[facility] 22 weeks gestatio n of Maya Barron MD [place], [facility] 11/28/2020 no charge procedure NC Tension-type headache, unspe cified, intractable Maya Barron MD [place], [facility] 11/21/2020 REVISIT- office visit K[facility] 21 weeks gestatio n of Maya Barron MD [place], [facility] 11/21/2020 REVISIT- office visit K[facility] 20 weeks gestatio n of Maya Barron MD [place], [facility] 11/14/2020 no charge procedure NC Palpitations Maya Barron MD [facility], [facility] 11/03/2020 no charge procedure NC Palpitations Maya Barron MD [facility], [facility] 10/31/2020 REVISIT- office visit K[facility]LE[facility] 18 weeks gestatio n of Maya Barron MD [place], [facility] 10/31/2020 REVISIT- office visit K[facility]LE[facility] 17 weeks gestatio n of Maya Barron MD [place], [facility] 10/24/2020 no charge procedure NC Palpitations Maya Barron MD [facility], [facility] 10/17/2020 REVISIT- office visit K[facility]LEIGH 16 weeks gestatio n of Maya Barron MD [place], [facility] 10/17/2020 Holter Monitor, Physician review & interpretation only 95100 Palpitations Michel Villalba MD [facility] Outpt 10/11/2020 REVISIT- office visit K[facility]LEIGH 15 weeks gestatio n of Maya Barron MD [place], [facility] 10/11/2020 REVISIT- office visit K[facility] 13 weeks gestatio n of Maya Barron MD [place], [facility] 09/27/2020 REVISIT- office visit K[facility]LE[facility] 12 weeks gestatio n of Maya Barron MD [place], [facility] 09/19/2020 EKG- Electrocardiogram/12 lead 07202 Chest pain, unspe cified Cat Gutierrez [facility], [facility] 09/11/2020 REVISIT- office visit K[facility]LE[facility] 10 weeks gestatio n of Cat De Pazing [facility], [facility] 09/05/2020 REVISIT- office visit KAYLEIGH 8 weeks gestation of Maya Barron MD [place], [facility] 08/22/2020 Urinalysis w/o Microscopy (Distinct Seperate service-same da y) 79141 Frequency of micturition- Urinary Frequency Maya Barron MD [place], [facility] 08/15/2020 RAPID STREP 93561 Acute pharyngitis, unspecified Maya Barron MD [place], [facility] 08/15/2020 Initial Obstetrical Care Office Visit OB Le ss than 8 weeks gestation of Cat De Pazing [facility], [facility] 021 Urinalysis w/o Microscopy 47453 Frequency of micturiti on- Urinary Frequency Maya Barron MD [place], [facility] 07/19/2020 REVISIT- office visit [facility] Threatened Alicja Barron MD [place], [facility] 05/26/2020 NO CHARGE- Nurse visit- OB establish [employer] Thr eatened , state, incidental Maya Barron MD [place], [facility] 020 General Health Panel( CMP, CBC, TSH) 53026 Dysmenorrhe a, unspecified Maya Barron MD [place], [facility] 04/10/2020 Venipuncture (routine) 07749 Dysmenorrhea, unspecified Davidson Barron MD [place], [facility] 04/10/2020 Brief Emotional Behavior Assessment 09906 Scre ening for Mental Health/Behavioral Disorder, Unspecified Maya Barron MD [place], [facility] 04/10/2020 Surgical History Last Updated No surgical / [...] Mental Status not supported for this document typeNo Mental Status Recorded Functional Status Functional Status not supported for [...] 7 yrs) 1 04/29/2016 Complete (Reported) Pa tient Tdap (> 7 yrs) 2 01/16/2021 Left Deltoid Complete (A dministered) [facility] Varicella 1 04/18/2000 Complete (Reported) Patient Varicella 2 04/29/2016 Complete (Reported) Patient Allergies Includes: Active, inactive, and resolved Allergies Substance Type Reaction Onset Date - Time Resolved Date - Ti me Status Naproxen Allergy Skin Rashes 02/01/2020 - 12:00AM Act marquita Encounters Includes: Encounters from 03/28/2020 through 03/28/2021 Encounter Provider Location Date Check-In Time Check-Out Time D iagnosis Transitional Care Management HIGH complexity Maya rico MD [place], [facility] 03/28/2021 2:31PM 3:10PM Maternal Mental Disorder Complicating Childbirth and Puerperium, Pituitary Neoplasm Benign TCMNV phone call- NO CHARGE Maya Barron MD [facility] 2021 03/13/2021 12:00PM 03/13/2021 11:59PM Chest Pain, Fracture of Fifth Cervical Vertebral Body, Generalized Anxiety Disorder, History of Psychiatric Disorders, Reactive Airway Disease REVISIT- Routine (OB) Visit Maya Barron MD [facility], [facility] 03/13/2021 9:55AM 10:07AM REVISIT- Routine (OB) Visit Maya Barron MD [facility], [facility] 03/07/2021 10:01AM 10:23AM REVISIT- Routine (OB) Visit Cat Gutierrez RPA [facility], [facility] 02/27/2021 9:52AM 10:21AM REVISIT- Routine (OB) Visit Maya Barron MD [facility], [facility] 02/23/2021 2:25PM 2:41PM REVISIT- Routine (OB) Visit Maya Barron MD [facility], [facility] 01/16/2021 9:52AM 10:23AM Telehealth communication Maya Barron MD [facility], [facility] 01/09/2021 12/26/2020 10:00AM 10:27AM Generalized Anxiety Disorder, Chest Pain, Iron Deficiency Anemia, Upper Respiratory Infection REVISIT- Routine (OB) Visit Maya Barron MD [facility], [facility] 12/26/2020 9:45AM 10:08AM telephone conversation Michel Villalba MD 1 12/14/2020 9:13AM 12/14/2020 11:59PM Atypical Chest Pain telephone conversation Michel Villalba MD 1 12/14/2020 6:45PM 12/14/2020 11:59PM Hypotension telephone conversation [facility] Barron MD [facility] 12/19/2020 12/14/2020 2:14PM 12/14/2020 11:59PM Fracture of Fifth Ce rvical Vertebral Body, History of Psychiatric Disorders, Reactive Airway Disease Problem visit - not contagious Bandar Cleveland PA-C [facility], [facility] 12/14/2020 2:08PM 2:52PM Tension-type Headach e REVISIT- Routine (OB) Visit Maya Barron MD [facility], [facility] 12/05/2020 11:17AM 12:08PM REVISIT- Routine (OB) Visit Maya Barron MD [facility], [facility] 11/28/2020 1:34PM 1:51PM Chronic Care Mgt - Office Visit Maya Barron MD [facility], [facility] 11/21/2020 2:10PM 2:35PM Fracture of Fift h Cervical Vertebral Body, History of Psychiatric Disorders, Reactive Airway Disease REVISIT- Routine (OB) Visit Maya Barron MD [facility], [facility] 11/21/2020 11:33AM 12:01PM REVISIT- Routine (OB) Visit Maya Barron MD [facility], [facility] 11/14/2020 9:55AM 10:36AM REVISIT- Routine (OB) Visit Maya Barron MD [facility], [facility] 11/07/2020 11:42AM 12:02PM OB- ILL VISIT Maya Barron MD [facility], [facility] 11/03/2020 3:45PM 4:29PM , Generalized Anxie ty Disorder, Panic Disorder, Chest Pain Chronic Care Mgt - Office Visit Maya Barron MD [facility], [facility] 11/03/2020 2:37PM 3:38PM Chronic Care Mgt - Office Visit Maya Barron MD [facility], [facility] 10/31/2020 3:23PM 3:24PM Fracture of Fift h Cervical Vertebral Body, History of Psychiatric Disorders, Reactive Airway Disease REVISIT- Routine (OB) Visit Maya Barron MD [facility], [facility] 10/31/2020 9:54AM 10:24AM Chronic Care Mgt - Office Visit Maya Barron MD [facility], [facility] 10/24/2020 2:16PM 11:59PM REVISIT- Routine (OB) Visit Maya Barron MD [facility], [facility] 10/24/2020 10:00AM 10:47AM REVISIT- Routine (OB) Visit Maya Barron MD [facility], [facility] 10/17/2020 11:24AM 12:12PM Chronic Care Mgt - Office Visit Maya Barron MD [facility], [facility] 10/17/2020 11:25AM 12:11PM Fracture of Fift h Cervical Vertebral Body, History of Psychiatric Disorders, Reactive Airway Disease REVISIT- Routine (OB) Visit Maya Barron MD [facility], [facility] 10/11/2020 9:44AM 10:15AM OB- ILL VISIT Maya Barron MD [facility], [facility] 10/04/2020 2:12PM 2:31PM Presyncope Syndrome, Tachyca rdia, Palpitations, Difficulty Breathing (Dyspnea), Weeks of Gestation - 13 REVISIT- Routine (OB) Visit Maya Barron MD [facility], [facility] 09/27/2020 1:36PM 1:59PM telephone conversation Michel Villalba MD 09/19/2020 9:43PM 09/19/2020 11:59PM Atypical Chest Pain REVISIT- Routine (OB) Visit Maya Barron MD [facility], [facility] 09/19/2020 9:48AM 10:14AM REVISIT- Routine (OB) Visit Cat Gutierrez [facility], [facility] 09/11/2020 3:22PM 4:16PM REVISIT- Routine (OB) Visit Cat Gutierrez [facility], [facility] 09/05/2020 9:37AM 10:00AM TCMNV phone call- NO CHARGE Cat Gutierrez [facility] 09/04/2020 09/05/2020 4:54PM 09/05/2020 11:59PM [Patient Encounter] Cat Gutierrez [facility] 08/31/2020 021 2:21PM 08/22/2020 11:59PM telephone conversation Michel Villalba MD 08/2808/22/2020 11:00AM 08/22/2020 11:59PM REVISIT- Routine (OB) Visit Maya Barron MD [facility], [facility] 08/22/2020 1:56PM 2:19PM sick visit Maya Barron MD [facility], [facility] 0 08/15/2020 9:36AM 10:12AM Upper Respiratory Infection Acute, Pollakiuria OB/1st visit *UA @ Checkin* Fax Demo's c Due Date* Cat Gutierrez [facility], [facility] 08/09/2020 9:22AM 10:56AM followup Cat Gutierrez [facility] 08/02/2020 10:18AM 11:42AM Generalized Anxiety Disorder , Early Stage, Abdominal Pain telephone conversation Michel Villalba MD 07/26/2020 7:59AM 07/26/2020 11:59PM [Patient Encounter] Cat Gutierrez [facility] 07/28/2020 021 2:20PM 07/26/2020 11:59PM followup Maya Barron MD [facility] 07/26/2020 10:39AM 11:02AM , Generalized Anxie ty Disorder sick visit Bandar Cleveland PA-C [facility] 1 3:36PM 4:30PM Pyrexia followup Maya Barron MD [facility] 0 07/19/2020 10:52AM 11:30AM , Generalized Anxie ty Disorder, Pollakiuria followup Maya Barron MD [facility] 1 09/11/2019 10:43AM 11:14AM Atypical Chest Pain, Adjustm ent Disorder followup Maya Barron MD [facility] 1 08/07/2019 10:43AM 10:59AM Missed followup Maya Barron MD [facility] 05/26 1:45PM 2:11PM with Threatened Problem visit - not contagious Maya Barron MD [facility] 05/24/2020 11:13AM 12:00PM with T hreatened [Patient Encounter] Maya Barron MD 05/24/2020 020 10:17AM 04/19/2020 11:59PM followup Maya Barron MD [facility] 1 11:51AM 12:08PM ANNUAL PE-followup Maya Barron MD [facility] 04/10/2020 8:42AM 9:13AM Routine History and Physical Adult (18 - 64 Yrs), Dysmenorrhea Insurance Includes: Active Insurance Policies Plan Name Member ID Group # Subscriber Relationship Effective Da greg 1 - MANAGED MEDICAID [facility] [id number] Georgiana Nguyen 07/14/2020 - Unknown Advance Directives Includes: Current Advance DirectivesNo Advance Directives Recorded Health Concerns Includes: Active Health ConcernsNo Active Health Concerns Recorded Goals Includes: Active GoalsNo Active Goals Recorded Interventions Includes: Interventions for active GoalsNo Interventions Recorded Evaluations & Outcomes Includes: Evaluations & Outcomes for active GoalsNo Outcomes Recorded
--- OUTSIDE RECORDS SUMMARY | 2021-04-29 16:37 | CCD ---
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 Barron at 2:45pm [facility] phone call- NO CHARGE with Maya Barron MD 2021 [facility]itional care management services with [facility]- [facility] with [facility] MD 2021 Community resources No referrals needed at this time [facility] Care [facility]gt - Office Visit with Maya Barron MD 10/17/2020 Follow-up visit date 10/17/2020 PCP mukuli jovita and [facility] visit (Dr. Barron and Esther Howell,EHSAN) Chronic Care Mgt - Office Visit with [...] or concerns sick visit with Cat Gutierrez [facility] 10/30/2018 Assessments Includes: Assessments for all patient encounters Findings Encounter Date Chest pain [facility] phone call- NO CHARGE [...] MD 08/15/2020 Abdominal pain followup with Cat Gutiererz RPA 2020 Early stage of followup with [...] surance provided today. 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 Strain of muscle and tendon of front wall of thorax si ck visit with Cat Huston [facility] 10/30/2018 Fracture of fifth cervical vertebral body No Fault with Wanda Huston [facility] 03/04/2018 Late effects of accident No Fault with Cat [facility] 0 03/04/2018 Instructions Instructions not supported for [...] 08/10/2020 - 08/17/2020 Pro vider: Cat Gutierrez [facility] Diagnosis: 1 PO BID Sertraline HCl 50 MG Oral Tablet 08/02/2020 - 08/22/2020 Pro vider: Cat Gutierrez [facility] Diagnosis: as directed - Take 1/2 tab [...] Capsule 12/13/2019 - 12/13/2019 Pro vider: Maya Barorn MD Diagnosis: 1 PO QID Firvanq 50 [...] Recorded Vital Signs Includes: Vital Signs from 2020 through 2021 Vital Name 03/13/2021 10:02A 03/07/2021 10:12A 02/27/2021 10:07A 02/23/2021 02:35P 01/16/2021 10:00A Blood Pressure Sitting L 110/70 114/70 100/54 BP Cuff Size Regular Regular Regular Pulse Rate-Sitting (bpm) 84 79 92 95 Respiration Rate (breaths/min) 20 18 20 18 Weight (lb) 147 140 142 139 133 Blood Pressure Sitting (mmHg) 102/60 102/64 Vital Name 12/26/2020 09:58A 12/14/2020 02:15P 12/05/2020 11:47A 11/28/2020 01:44P 11/21/2020 11:41A Blood Pressure Sitting L 98/62 100/62 BP Cuff Size Regular Regular Regular Regular Pulse Rate-Sitting (bpm) 88 98 80 88 76 Respiration Rate (breaths/min) 20 20 20 20 20 Weight (lb) 130 126.6 126 123 122 Blood Pressure Sitting (mmHg) 102/50 Oxygen Saturation (%) 98 Blood Pressure Sitting R 92/60 100/60 Vital Name 11/14/2020 10:01A 11/07/2020 11:52A 11/03/2020 04:01P 10/31/2020 10:02A 10/24/2020 10:12A Blood Pressure Sitting L 100/60 92/54 100/62 100/60 100/60 BP Cuff Size Regular Regular Regular Regular Regular Pulse Rate-Sitting (bpm) 72 80 80 88 80 Respiration Rate (breaths/min) 20 20 20 20 20 Weight (lb) 121 121 117 120 120 Vital Name 10/17/2020 11:34A 10/11/2020 09:56A 10/04/2020 02:18P 09/27/2020 01:44P 09/19/2020 09:58A Blood Pressure Sitting L 110/56 110/60 98/62 100/60 BP Cuff Size Regular Regular Regular Regular Regular Pulse Rate-Sitting (bpm) 80 76 116 76 76 Respiration Rate (breaths/min) 20 20 24 20 20 Weight (lb) 118 120 118 120 119 Blood Pressure Sitting R 100/60 Vital Name 09/11/2020 03:39P 09/05/2020 09:48A 08/22/2020 02:14P 08/15/2020 09:54A 08/09/2020 09:27A Pulse Rate-Sitting (bpm) 78 72 72 Respiration Rate (breaths/min) 18 20 Weight (lb) 118 119 121 121 Blood Pressure Sitting (mmHg) 104/60 110/68 112/60 100/72 90/50 Temp-Tympanic (F) 97.3 Height (in) 65 Body Mass Index (kg/m2) 2 0.1 Body Surface Area (m2) 1. 60 Vital Name 08/02/2020 10:58A 07/26/2020 10:46A 07/25/2020 04:09P 07/19/2020 11:05A 07/11/2020 10:56A Blood Pressure Sitting L 102/62 BP Cuff Size Regular Pulse Rate-Sitting (bpm) 64 86 80 114 78 Respiration Rate (breaths/min) 20 18 20 18 20 Weight (lb) 123 124 126 121.6 125 Blood Pressure Sitting (mmHg) 98/60 118/76 116/80 120/80 Oxygen Saturation (%) 98 98 98 Temp-Tympanic (F) 98.2 Height (in) 65 65 65 Body Mass Index (kg/m2) 20.6 20.2 2 0.8 Body Surface Area (m2) 1.61 1.60 1. 62 Temp-Oral (F) 98.5 98.2 98.5 Vital Name 06/07/2020 10:51A 05/26/2020 01:50P 05/24/2020 12:01P 04/19/2020 11:58A 04/10/2020 08:48A Pulse Rate-Sitting (bpm) 72 86 87 72 Respiration Rate (breaths/min) 20 20 20 Weight (lb) 119 118.2 117.8 116 116.2 Blood Pressure Sitting (mmHg) 124/80 118/72 110/72 108/60 118/82 Height (in) 64 64 Body Mass Index (kg/m2) 20.4 1 9.9 Body Surface Area (m2) 1.57 1. 55 Results Includes: Results from 2020 through 2021 Cepheid SARS/FLU/RSV RT-PCR [facility] Ordered by Maya Barron MD [...] by FDA under an EUA for [facility] [id number] CoV RNA Resp Ql ТАТЬЯНА+okeupQYKRRYAVRHP-OVA-4 NOT [id number]-VXL-8 NOT [id number] RNA Resp Ql ТАТЬЯНА+probeLNNFLUAInfluenza A Not Det [id number] A Not Cvgfwjfb11523-6MLGDQ RNA Resp Ql ТАТЬЯНА+probeLNNINBInfluenza B Not [id number] B Not Aqkhaeqq94416- 2RSV RNA Resp Ql ТАТЬЯНА+probeLNNRSVRSV Not [id number] Not Detected Reviewed by Maya Barron MD on 03/26; All test results are final unless otherwise noted. Reported Physicians [facility] Ordered by Maya Barron MD on 03/23/2021 Collected: 03/23/2021 Reported: 03/23/2021 19:23 Reported Physicians See Note None Note: Reported Physicians:Ordering: Cara Alvarengaending: Hung Teranmitting: Dileep Teran To: Mike Teran Reviewed by Maya Barron MD on 03/26; All test results are final unless otherwise noted. U PC [facility] Ordered by Maya Barron MD [...] are final unless otherwise noted. Reported Physicians [facility] Ordered by Maya Barron MD on 03/23/2021 Collected: 03/23/2021 Reported: 03/23/2021 07:59 Reported Physicians See Note None Note: Reported Physicians:Ordering: Talisha is, TramaineothyAttending: Dowuona, OrakwaoAdmitting: Dowuona, OrakwaoCopy To: Maya Barron Reviewed by Maya Barron MD on 03/23; All test results are final unless otherwise noted. URINE DRUG SCREEN -([facility]) [facility] Ordered by Maya Barron MD on 03/23/2021 Collected: 03/23/2021 Reported: 03/23/2021 08:11 PCP Ur Ql Scn>25 ng/mL See Note (Cutoff 25) None Note: [id number] E@Reenter manual test result: NEGATIVE@by Claudia Tello at 03/23/21 0809.Responsible Observer: PCP Urine Phencyclidine (PCP) Scrn 400.5120 (A) THC Ur Ql Scn>50 ng/mL See Note (Cutoff 50) None Note: [id number] EResponsible Observer: Marijuana (THC) Ur Marijuana (THC) Screen 400.5110 (A) Benzodiaz Ur Ql Scn See Note (Cutoff 150) None Note: [id number] E@Reenter manual test result: NEGATIVE@by Claudia Tello at 03/23/21 0810.Responsible Observer: Benzodiazepines Urine Benzodiazepines Screen 400.5170 (A) Opiates Ur Ql Scn See Note (Cutoff 100) None Note: [id number] E@Reenter manual test result: NEGATIVE@by Claudia Tello at 03/23/21 0810.Responsible Observer: Opiates Urine Opiates Screen 400.5150 (A) Tricyclics Ur Ql Scn See Note (Cutoff 300) None Note: [id number] E@Reenter manual test result: NEGATIVE@by Claudia Tello at 03/23/21 0810.Responsible Observer: TCA Ur Tricyclic Antidepressants 400.5180 (A) Cocaine Ur Ql Scn See Note (Cutoff 150) None Note: [id number] E@Reenter manual test result: NEGATIVE@by Claudia Tello at 03/23/21 0809.Responsible Observer: Cocaine Urine Cocaine Screen 400.5130 (A) Propoxyph+Nor Ur Ql Scn See Note (Cutoff 300) None Note: [id number] E@Reenter manual test result: NEGATIVE@by Claudia Tello at 03/23/21 0810.Responsible Observer: Propoxyphene Urine Propoxyphene Screen 400.5220 (A) Methadone Ur Ql Scn See Note (Cutoff 200) None Note: [id number] E@Reenter manual test result: NEGATIVE@by Claudia Tello at 03/23/21 0810.Responsible Observer: Methadone Urine Methadone Screen 400.5190 (A) Methamphet Ur Ql Scn See Note (Cutoff 500) None Note: [id number] E@Reenter manual test result: NEGATIVE@by Claudia Tello at 03/23/21 0809.Responsible Observer: Methamphetamine Urine Methamphetamines Screen 400.5140 (A) oxyCODONE Ur Ql Scn See Note (Cutoff 100) None Note: [id number] E@Reenter manual test result: NEGATIVE@by Claudia Tello at 03/23/21 0810.Responsible Observer: Oxycodone Urine Oxycodone Screen 400.5210 (A) Buprenorphine Ur Ql See Note (Cutoff 10) None Note: [id number] E@Reenter manual test result: NEGATIVE@by Claudia Tello at 03/23/21 0810.Responsible Observer: Buprenorphine Urine Buprenorphine Screen 400.5230 (A) Amphetamines Ur Ql Scn>500 ng/mL See Note (Cutoff 500) None Note: [id number] E@Reenter manual test result: NEGATIVE@by Claudia Tello at 03/23/21 0810.Responsible Observer: Amphetamines Urine Amphetamines Screen 400.5160 (A) Barbiturates Ur Ql Scn>200 ng/mL See Note (Cutoff 200) None Note: [id number] E@Reenter manual test result: NEGATIVE@by Claudia Franklinkvngakhil at 03/23/21 0810.Responsible Observer: Barbiturates Urine Barbiturates 400.5200 (A) Reviewed by Maya Barron MD on 03/23; All test results are final unless otherwise noted. Cepheid SARS/FLU/RSV RT-PCR [facility] Ordered by Maya Barron MD [...] by FDA under an EUA for use [facility] hospital[facility] and [facility] Pharm[facility] [id number]-shf CoV RNA Resp Ql ТАТЬЯНА+jxlctXNBWHVUFZBY-CFT-8 NOT [id number]-TFA-0 NOT [id number] RNA Resp Ql ТАТЬЯНА+probeLNNFLUAInfluenza A Not Det [id number] A Not Nlbmcoha59667-5VQFJP RNA Resp Ql ТТАЬЯНА+probeLNNINBInfluenza B Not RlrctmedZ3165701141Tcjpoqnwd B Not Njzpdkjb17121- 2RSV RNA Resp Ql ТАТЬЯНА+probeLNNRSVRSV Not [id number] Not Detected Reviewed by Maya Barron MD on 03/23; All test results are final unless otherwise noted. Reported Physicians [facility] Ordered by Maya Barron MD on 03/23/2021 Collected: 03/23/2021 Reported: 03/23/2021 07:54 Reported Physicians See Note None Note: Reported Physicians:Ordering: Santiago Porterttending: Dheeraj TeranoAdmitting: Dileep Teran To: Adam Pardo To: Maya Barron Reviewed by Maya Barron MD on 03/23; All test results are final unless otherwise noted. [facility] Ordered by Maya Barron MD [...] unless otherwise noted. CBC W AUTO DIFF [facility] Ordered by Maya Barron MD [...] Auto See Note (0-2) N (Normal) Note: [id number] Ob sql server developer: IG% IG% 100.1375 (B) Hct VFr Bld [...] results are final unless otherwise noted. VB12 [facility] Ordered by Maya Barron MD on 03/23/2021 Collected: 03/23/2021 Reported: 03/23/2021 06:46 Vitamin B12 388 PicoGramsPerMilliLiter_[Mass_Concentration_Units] (211-911) N (Normal) Note: Responsible Observer: Vitamin B12 Vitamin B12 500.1105 (C) Reviewed by Maya Barron MD on 03/23; All test results are final unless otherwise noted. Reported Physicians [facility] Ordered by Maya Barron MD on 03/23/2021 Collected: 03/23/2021 Reported: 03/23/2021 06:46 Reported Physicians See Note None Note: Reported Physicians:Ordering: Math is, TimothyAttending: Tramaine PardoothyCopyifan To: Maya Barron Reviewed by Maya Barron MD on 03/23; All test results are final unless otherwise noted. FREE T4 (LAB) [facility] Ordered by Maya Barron MD on 03/23/2021 Collected: 03/23/2021 Reported: 03/23/2021 06:10 T4 Free SerPl-mCnc 0.93 NanoGramsPerDeciLiter_[Mass_Concentration_Units] (0.89-1.76) N (Normal) Note: Responsible Observer: FREE T4 Free Thyroxine 600.7005 (D) Reviewed by Maya Barron MD on 03/23; All test results are final unless otherwise noted. Reported Physicians [facility] Ordered by Maya Barron MD on 03/23/2021 Collected: 03/23/2021 Reported: 03/23/2021 06:10 Reported Physicians See Note None Note: Reported Physicians:Ordering: Talisha is TimothyAttending: Tramaine PardoothyCopyifan To: Maya Barron Reviewed by Maya Barron MD on 03/23; All test results are final unless otherwise noted. CRP, C-REACTIVE PROTEIN [facility] Ordered by Maya Barron MD on 03/23/2021 Collected: 03/23/2021 Reported: 03/23/2021 06:10 CRP SerPl-mCnc 18.9 MilliGramsPerLiter_[Mass_Concentration_Units] (0.0-5.0) H (High) Note: Responsible Observer: CRP C-Reacti ve Protein 401.4355 (H) Reviewed by Maya Barron MD on 03/23; All test results are final unless otherwise noted. Reported Physicians [facility] Ordered by Maya Barron MD on 03/23/2021 Collected: 03/23/2021 Reported: 03/23/2021 06:10 Reported Physicians See Note None Note: Reported Physicians:Ordering: Math is, TimothyAttending: Pardo, TimothyCopy To: Maya Barron Reviewed by Maya Barron MD on 03/23; All test results are final unless otherwise noted. MAGNESIUM [facility] Ordered by Maya Barron MD on 03/23/2021 Collected: 03/23/2021 Reported: 03/23/2021 06:10 Magnesium SerPl-mCnc 2.0 MilliGramsPerDeciLiter_[Mass_Concentration_Units] (1.3-2.7) N (Normal) Note: Responsible Observer: Magnesium Ma gnesium 400.3300 (G) Reviewed by Maya Barron MD on 03/23; All test results are final unless otherwise noted. SED RATE [facility] Ordered by Maya Barron MD on 03/23/2021 Collected: 03/23/2021 Reported: 03/23/2021 06:15 ESR Bld Qn Westrgrn 38 (0-20) H (High) Note: @Reenter manual test result: 38@by Claudia Tello at 03/23/21 0614.Responsible Observer: SED RATE SED RATE 100.6400 (C) Reviewed by Maya Barron MD on 03/23; All test results are final unless otherwise noted. Reported Physicians [facility] Ordered by Maya Barron MD on 03/23/2021 Collected: 03/23/2021 Reported: 03/23/2021 06:15 Reported Physicians See Note None Note: Reported Physicians:Ordering: Math is, TimothyAttending: Tramaine PardoothyCopyifan To: Maya Barron Reviewed by Maya Barron MD on 03/23; All test results are final unless otherwise noted. TSH [facility] Ordered by Maya Barron MD on 03/23/2021 Collected: 03/23/2021 Reported: 03/23/2021 06:10 TSH SerPl DL<=0.005 mIU/L-aCnc 2.43 MicroInternationalUnitsPerMilliLiter_[Arbitrary_Con (0.35-5. 50) N (Normal) Note: Responsible Observer: TSH TSH 600 .7055 (D) Reviewed by Maya Barron MD on 03/23; All test results are final unless otherwise noted. Reported Physicians [facility] Ordered by Maya Barron MD on 03/23/2021 Collected: 03/23/2021 Reported: 03/23/2021 06:10 Reported Physicians See Note None Note: Reported Physicians:Ordering: Sara Kaurending: Adam Pardo To: Maya Barron Reviewed by Maya Barron MD on 03/23; All test results are final unless otherwise noted. Prothrombin Time & INR [facility] Ordered by Maya Barron MD [...] results are final unless otherwise noted. LDH [facility] Ordered by Maya Barron MD on 03/23/2021 Collected: 03/23/2021 Reported: 03/23/2021 07:43 LDH SerPl-cCnc 251 enzyme_unit_per_liter (120-246) H (High) Note: Responsible Observer: LDH LDH 400 .2100 (G) Reviewed by Maya Barron MD on 03/23; All test results are final unless otherwise noted. Reported Physicians [facility] Ordered by Maya Barron MD on 03/23/2021 Collected: 03/23/2021 Reported: 03/23/2021 08:11 Reported Physicians See Note None Note: Reported Physicians:Ordering: Cara Alvarengaending: Hung Teranmitting: Dileep Teran To: Choco Pardo Reviewed by Maya Barron MD on 03/23; All test results are final unless otherwise noted. PTT [facility] Ordered by Maya Barron MD on 03/23/2021 Collected: 03/23/2021 Reported: 03/23/2021 07:21 Screen aPTT 25.0 second (22.7-31.6) N (Normal) Note: Responsible Observer: PTT PTT 200 .0500 (A) Reviewed by Maya Barron MD on 03/23; All test results are final unless otherwise noted. URIC ACID [facility] Ordered by Maya Barron MD on 03/23/2021 Collected: 03/23/2021 Reported: 03/23/2021 07:43 Urate SerPl-mCnc 2.1 MilliGramsPerDeciLiter_[Mass_Concentration_Units] (3.3-8.8) L (Low) Note: Responsible Observer: Uric Acid Ur ic Acid 400.3200 (G) Reviewed by Maya Barron MD on 03/23; All test results are final unless otherwise noted. Reported Physicians [facility] Ordered by Maya Barron MD on 03/23/2021 Collected: 03/23/2021 Reported: 03/23/2021 07:44 Reported Physicians See Note None Note: Reported Physicians:Ordering: Maya AlvarengaAttending: Adam Pardo To: Choco Pardo Reviewed by Maya Barron MD on 03/23; All test results are final unless otherwise noted. MAGNESIUM [facility] Ordered by Maya Barron MD on 03/23/2021 Collected: 03/23/2021 Reported: 03/23/2021 07:43 Magnesium SerPl-mCnc 2.1 MilliGramsPerDeciLiter_[Mass_Concentration_Units] (1.3-2.7) N (Normal) Note: Responsible Observer: Magnesium Ma gnesium 400.3300 (G) Reviewed by Maya Barron MD on 03/23; All test results are final unless otherwise noted. Reported Physicians [facility] Ordered by Maya Barron MD on 03/23/2021 Collected: 03/23/2021 Reported: 03/23/2021 07:44 Reported Physicians See Note None Note: Reported Physicians:Ordering: Cara Alvarengaending: Choco PardoCopyifan To: Choco Pardo Reviewed by Maya Barron MD on 03/23; All test results are final unless otherwise noted. CBC W AUTO DIFF [facility] Ordered by Maya Barron MD [...] Auto See Note (0-2) N (Normal) Note: [id number] Ob sql server developer: IG% IG% 100.1375 (B) Hct VFr Bld [...] are final unless otherwise noted. Reported Physicians [facility] Ordered by Maya Barron MD on 03/21/2021 Collected: 03/21/2021 Reported: 03/21/2021 07:24 Reported Physicians See Note None Note: Reported Physicians:Ordering: Maya AlvarengaAttending: Maya BarronAdmitting: Maya Barron Reviewed by Maya Barron MD on 03/21; All test results are final unless otherwise noted. MANUAL DIFF [facility] Ordered by Maya Barron MD [...] are final unless otherwise noted. Reported Physicians [facility] Ordered by Maya Barron MD on 03/21/2021 Collected: 03/21/2021 Reported: 03/21/2021 07:24 Reported Physicians See Note None Note: Reported Physicians:Ordering: Maya AlvarengaAttending: Maya BarronAdmitting: Maya Barron Reviewed by Maya Barron MD on 03/21; All test results are final unless otherwise noted. Cepheid SARS/FLU/RSV RT-PCR [facility] Ordered by Maya Barron MD [...] by FDA under an EUA for use [facility] [id number]-sut CoV RNA Resp Ql ТАТЬЯНА+fdkefUWLGIDNZRKK-AYM-8 NOT [id number]-FWA-4 NOT NREQMGKQ72479-6OMSSI RNA Resp Ql ТАТЬЯНА+probeLNNFLUAInfluenza A Not Det [id number] A Not Wwmodjek56876-3ZWHGY RNA Resp Ql ТАТЬЯНА+probeLNNINBInfluenza B Not EsbtovctW5099302710Mpxuvgnsz B Not Vloyhvkp09410- 2RSV RNA Resp Ql ТАТЬЯНА+probeLNNRSVRSV Not [id number] Not Detected Reviewed by Maya Barron MD on 03/20; All test results are final unless otherwise noted. Reported Physicians [facility] Ordered by Maya Barron MD on 03/20/2021 Collected: 03/20/2021 Reported: 03/20/2021 11:22 Reported Physicians See Note None Note: Reported Physicians:Ordering: Maya AlvarengaAttending: Maya BarronAdmitting: Maya Barron Reviewed by Maya Barron MD on 03/20; All test results are final unless otherwise noted. CBC W AUTO DIFF [facility] Ordered by Maya Barron MD [...] Auto See Note (0-2) N (Normal) Note: [id number] Ob sql server developer: IG% IG% 100.1375 (B) Hct VFr Bld [...] are final unless otherwise noted. Reported Physicians [facility] Ordered by Maya Barron MD on 03/20/2021 Collected: 03/20/2021 Reported: 03/20/2021 10:18 Reported Physicians See Note None Note: Reported Physicians:Ordering: Maya AlvarengaAttending: Brenda Barronitting: Maya Barron Reviewed by Maya Barron MD on 03/20; All test results are final unless otherwise noted. Type and Screen [facility] Ordered by Maya Barron MD [...] are final unless otherwise noted. Reported Physicians [facility] Ordered by Maya Barron MD on 03/20/2021 Collected: 03/20/2021 Reported: 03/20/2021 10:37 Reported Physicians See Note None Note: Reported Physicians:Ordering: Maya AlvarengaAttending: Brenda Barronitting: Maya Barron Reviewed by Maya Barron MD on 03/20; All test results are final unless otherwise noted. MANUAL DIFF [facility] Ordered by Maya Barron MD [...] are final unless otherwise noted. Reported Physicians [facility] Ordered by Maya Barron MD on 03/20/2021 Collected: 03/20/2021 Reported: 03/20/2021 10:18 Reported Physicians See Note None Note: Reported Physicians:Ordering: Maya AlvarengaAttending: Maya BarronAdmitting: Maya Barron Reviewed by Maya Barron MD on 03/20; All test results are final unless otherwise noted. CBC W AUTO DIFF [facility] Ordered by Maya Barron MD [...] Auto See Note (0-2) N (Normal) Note: 0.90.6S06350326035.9Responsible Ob sql server developer: IG% IG% 100.1375 (B) Hct VFr Bld [...] results are final unless otherwise noted. TROPONIN [facility] Ordered by Maya Barron MD on 03/17/2021 Collected: 03/17/2021 Reported: 03/17/2021 15:52 Troponin I SerPl-mCnc Less Than 0.015 (0.00-0.09) N (Normal) Note: Less than 0.09 NG/ML Negative 0.10 - 0.77 NG/ML High Risk0.78 NG/ML or Greater PositiveThe WHO defined the cutoff (definition for diagnosis of MS)for this method as 0.78 ng/ml.Responsible Observer: Troponin I Troponin I 600.1101 (G) Reviewed by Maya Barron MD on 03/20; All test results are final unless otherwise noted. Reported Physicians [facility] Ordered by Maya Barron MD on 03/17/2021 Collected: 03/17/2021 Reported: 03/17/2021 15:52 Reported Physicians See Note None Note: Reported Physicians:Ordering: Hong LandaverdeAttending: Alon Douglas To: Maya Barron Reviewed by Maya Barron MD on 03/20; All test results are final unless otherwise noted. Cepheid GBS RT-PCR [facility] Ordered by Cat Gutierrez RPA on 02/27/2021 Collected: 02/27/2021 Reported: 02/28/2021 12:50 Cepheid GBS RT-PCR See Note None Note: Cepheid Gene Xpert GBS LB assay is a RT-PCR with fluorogenicdetection of amplified DNA.Normal Result is " No Group B Strep detected "PREGBSNNo Group B strep [id number] Group B strep detected Reviewed by Cat Gutierrez RPA on 02/28; All test results are final unless otherwise noted. Reported Physicians [facility] Ordered by Cat Gutierrez RPA on 02/27/2021 Collected: 02/27/2021 Reported: 02/28/2021 12:50 Reported Physicians See Note None Note: Reported Physicians:Ordering: Cat ConwayAttending: Cat Gutierrez Reviewed by Cat Gutierrez RPA on 02/28; All test results are final unless otherwise noted. TROPONIN T [facility] Ordered by Maya Barron MD on 02/22/2021 Collected: 02/22/2021 Reported: 02/22/2021 00:25 TROPONIN T <0.01 NG/ML (0.00 - 0.10) None Note: TROPONIN T0.1 ng/ml Recommended as the clinical threshold value forTroponin T.Responsible Observer: (LBS) Reviewed by Maya Barron MD on 02/23; All test results are final unless otherwise noted. Reported Physicians [facility] Ordered by Maya Barron MD on 02/22/2021 Collected: 02/22/2021 Reported: 02/22/2021 00:26 Reported Physicians See Note None Note: Reported Physicians:Ordering: TURR IN, RICCARDOAttending: TURRIN, RICCARDOConsulting: Rubén BARRON To: HOLLYRIN, RICCARDOCopy To: ROBERTO JESSEE Reviewed by Maya Barron MD on 02/23; All test results are final unless otherwise noted. TROPONIN T [facility] Ordered by Maya Barron MD on 02/21/2021 Collected: 02/21/2021 Reported: 02/21/2021 21:47 TROPONIN T <0.01 NG/ML (0.00 - 0.10) None Note: TROPONIN T0.1 ng/ml Recommended as the clinical threshold value forTroponin T.Responsible Observer: (ABIOLA) Reviewed by Maya Barron MD on 02/23; All test results are final unless otherwise noted. Reported Physicians [facility] Ordered by Maya Barron MD on 02/21/2021 Collected: 02/21/2021 Reported: 02/21/2021 21:47 Reported Physicians See Note None Note: Reported Physicians:Ordering: TURR IN, RICCARDOAttending: HOLLYRIN, RICCARDOConsulting: Rubén BARRON To: ROBERTO, RICCARDOCopy To: ARIA MEJIACARDO Reviewed by Maya Barron MD on 02/23; All test results are final unless otherwise noted. COMPREHENSIVE METABOLIC PANEL [facility] Ordered by Maya Barron [...] are final unless otherwise noted. Reported Physicians [facility] Ordered by Maya Barron MD on 02/21/2021 Collected: 02/21/2021 Reported: 02/21/2021 21:47 Reported Physicians See Note None Note: Reported Physicians:Ordering: TURR IN, RICCARDOAttending: TURRIN, RICCARDOConsulting: Rubén BARRON To: ROBERTO, RICCARDOCopy To: ROBERTO, JESSEE Reviewed by Maya Barron MD on 02/23; All test results are final unless otherwise noted. LIPASE SERUM [facility] Ordered by Maya Barron MD on 02/21/2021 Collected: 02/21/2021 Reported: 02/21/2021 21:42 LIPASE 22 U/L (13 - 60) None Note: Responsible Observer: (ABIOLA) Reviewed by Maya Barron MD on 02/23; All test results are final unless otherwise noted. Reported Physicians [facility] Ordered by Maya Barron MD on 02/21/2021 Collected: 02/21/2021 Reported: 02/21/2021 21:42 Reported Physicians See Note None Note: Reported Physicians:Ordering: TURR IN, RICCARDOAttending: ROBERTO, RICCARDOConsulting: Rubén BARRON To: TURRIN, RICCARDOCopy To: TURRIN, JESSEE Reviewed by Maya Barron MD on 02/23; All test results are final unless otherwise noted. CBC W/AUTOMATED DIFF [facility] Ordered by Maya Barron MD [...] are final unless otherwise noted. Reported Physicians [facility] Ordered by Maya Barron MD on 02/21/2021 Collected: 02/21/2021 Reported: 02/21/2021 21:21 Reported Physicians See Note None Note: Reported Physicians:Ordering: MARCELINO INJESSEEAttending: JESSEE MEJIAConsulting: Rubén BARRON To: Saleem MEJIA To: JESSEE MEJIA Reviewed by Maya Barron MD on 02/23; All test results are final unless otherwise noted. 1HR GESTATIONAL GLUCOSE (50gm) [facility] Ordered by Maya Barron MD [...] are final unless otherwise noted. Reported Physicians [facility] Ordered by Maya Barron MD on 01/30/2021 Collected: 01/30/2021 Reported: 01/30/2021 14:23 Reported Physicians See Note None Note: Reported Physicians:Ordering: Maya AlvarengaAttending: Maya Barron Reviewed by Maya Barron MD on 01/31; All test results are final unless otherwise noted. URINALYSIS [facility] Ordered by Maya Barron MD on 01/30/2021 Collected: 01/30/2021 Reported: 01/30/2021 12:35 Urobilinogen Ur Ql See Note (0.2-1 EU/dl) None Note: 0.2 EU/dl0.2 EU/[id number] E U/dlResponsible Observer: UROBILINOGEN UROBILINOGEN 300.4500 (C) RBC # Ur Strip NEGATIVE (NEGATIVE) None Note: Responsible Observer: BLOOD BLOOD 300.4650 (C) Prot Ur Ql Strip See Note (NEGATIVE) None Note: [id number] ble Observer: PROTEIN PROTEIN 300.3750 (C) Ketones Ur Ql Strip See Note (NEGATIVE) None Note: 15 mg/dL15 mg/[id number] mg/d LResponsible Observer: KETONE KETONE 300.3900 (C) Bilirub Ur Ql Strip.auto See Note (NEGATIVE) None Note: [id number] EResponsible Observer: BILIRUBIN BILIRUBIN 300.4550 (C) Glucose Ur Strip.auto-mCnc NEGATIVE (NEGATIVE) None Note: Responsible Observer: GLUCOSE GLUC OSE 300.3850 (C) Appearance Ur See Note (CLEAR) None Note: CLEARCLEARLCLEARResponsible Observ er: APPEARANCE APPEARANCE 300.3400 (A) Color Ur See Note None Note: YELLOWYELLOWLYELLOWResponsible Obs erver: COLOR COLOR 300.3300 (A) Leukocyte esterase Ur Ql Strip See Note (NEGATIVE) None Note: [id number] E@DO MICRO!!!!Responsible Observer: LEUKOCYTES LEUKOCYTES 300.3575 (C) Nitrite Ur Ql Strip See Note (NEGATIVE) None Note: [id number] EResponsible Observer: NITRITE NITRITE 300.3650 (B) pH [...] are final unless otherwise noted. Reported Physicians [facility] Ordered by Maya Barron MD on 01/30/2021 Collected: 01/30/2021 Reported: 01/30/2021 12:36 Reported Physicians See Note None Note: Reported Physicians:Ordering: Bia Alvarenga: Maya Barron Reviewed by Maya Barron MD on 01/31; All test results are final unless otherwise noted. Urine culture [facility] Ordered by Maya Barron MD on 01/30/2021 Collected: 01/30/2021 Reported: 02/01/2021 06:50 Urine culture result No growth None Reviewed by Maya Barron MD on 02/02; All test results are final unless otherwise noted. Reported Physicians [facility] Ordered by Maya Barron MD on 01/30/2021 Collected: 01/30/2021 Reported: 02/01/2021 06:50 Reported Physicians See Note None Note: Reported Physicians:Ordering: Cara Alvarengaending: Maya Barron Reviewed by Maya Barron MD on 02/02; All test results are final unless otherwise noted. ADD ON MICROSCOPIC [facility] Ordered by Maya Barron MD on 01/30/2021 Collected: 01/30/2021 Reported: 01/30/2021 12:35 ADD ON MICROSCOPIC See Note (0-5) H (High) Note: NOTES OTHER/NOT INTERPRETED Bacteria UrnS Ql Micro MODERATE AMOUNT Bacteria UrnS Ql Micro MODERATE AMOUNT Bacteria UrnS Ql Micro L Bacteria UrnS Ql Micro Bacteria UrnS Ql Micro Bacteria UrnS Ql Micro Bacteria UrnS Ql Micro [id number] Bacteria UrnS Ql Micro Bacteria UrnS Ql [...] Ql Micro Mucous Threads UrnS Ql Micro [id number] Mucous Threads UrnS Ql Micro Mucous Threads UrnS Ql Micro LARGE AMOUNT WBC # Ur Manual 15-20 @01/30/21 1230: UA W/ MICRO added. RFLXG = UMIC.Method of Collection:: VoidedResponsible Observer: WBC WBC 300.5000 (A) Reviewed by Maya Barron MD on 01/31; All test results are final unless otherwise noted. Reported Physicians [facility] Ordered by Maya Barron MD on 01/30/2021 Collected: 01/30/2021 Reported: 01/30/2021 12:36 Reported Physicians See Note None Note: Reported Physicians:Ordering: Maya AlvarengaAttending: Maya Barron Reviewed by Maya Barron MD on 01/31; All test results are final unless otherwise noted. TROPONIN [facility] Ordered by Maya Barron MD on 01/11/2021 Collected: 01/11/2021 Reported: 01/11/2021 17:30 Troponin I SerPl-mCnc Less Than 0.015 (0.00-0.09) N (Normal) Note: Less than 0.09 NG/ML Negative 0.10 - 0.77 NG/ML High Risk0.78 NG/ML or Greater PositiveThe WHO defined the cutoff (definition for diagnosis of MS)for this method as 0.78 ng/ml.Responsible Observer: Troponin I Troponin I 600.1101 (G) NOTES See Note None Note: Test(s)performed [place] [address] Reviewed by Maya Barron MD on 01/12; All test results are final unless otherwise noted. Reported Physicians [facility] Ordered by Maya Barron MD on 01/11/2021 Collected: 01/11/2021 Reported: 01/11/2021 17:30 Reported Physicians See Note None Note: Reported Physicians:Ordering: Les Vanegas: Fady Raza To: Maya Barron Reviewed by Maya Barron MD on 01/12; All test results are final unless otherwise noted. TSH w/ reflex to Free T4 [facility] Ordered by Maya Barron MD on 01/11/2021 Collected: 01/11/2021 Reported: 01/11/2021 17:30 TSH SerPl DL<=0.005 mIU/L-aCnc 1.05 MicroInternationalUnitsPerMilliLiter_[Arbitrary_Con (0.35-5. 50) N (Normal) Note: Responsible Observer: TSH TSH 600 .7060 (D) NOTES See Note None Note: Test(s)[place] [address] Reviewed by Maya Barron MD on 01/12; All test results are final unless otherwise noted. Reported Physicians [facility] Ordered by Maya Barron MD on 01/11/2021 Collected: 01/11/2021 Reported: 01/11/2021 17:30 Reported Physicians See Note None Note: Reported Physicians:Ordering: Les Vanegas: Fady Raza To: Maya Barron Reviewed by Maya Barron MD on 01/12; All test results are final unless otherwise noted. CBC W AUTO DIFF [facility] Ordered by Maya Barron MD [...] Auto See Note (0-2) N (Normal) Note: 0.90.8S29745966936.9Responsible Ob sql server developer: IG% IG% 100.1375 (B) Hct VFr Bld [...] test results are final unless otherwise noted. [facility] Ordered by Maya Barron MD [...] NOTES See Note None Note: Test(s)[place] [address] Reviewed by Maya Barron MD on 01/12; All test results are final unless otherwise noted. Reported Physicians [facility] Ordered by Maya Barron MD on 01/11/2021 Collected: 01/11/2021 Reported: 01/11/2021 17:30 Reported Physicians See Note None Note: Reported Physicians:Ordering: Les Vanegas AAttending: Fady Raza To: Maya Barron Reviewed by Maya Barron MD on 01/12; All test results are final unless otherwise noted. UA W/ CULTURE IF ABNORMAL [facility] Ordered by Maya Barron MD on 12/28/2020 Collected: 12/28/2020 Reported: 12/28/2020 21:56 Urobilinogen Ur Ql See Note (0.2-1 EU/dl) None Note: 0.2 EU/dl0.2 EU/[id number] E U/dlResponsible Observer: UROBILINOGEN UROBILINOGEN 300.4500 (C) RBC # Ur Strip NEGATIVE (NEGATIVE) None Note: Responsible Observer: BLOOD BLOOD 300.4652 (C) Prot Ur Ql Strip See Note (NEGATIVE) None Note: [id number] EResponsible Observer: PROTEIN PROTEIN 300.3750 (C) Ketones Ur Ql Strip See Note (NEGATIVE) None Note: [id number] EResponsible Observer: KETONE KETONE 300.3900 (C) Bilirub Ur Ql Strip.auto See Note (NEGATIVE) None Note: [id number] EResponsible Observer: BILIRUBIN BILIRUBIN 300.4550 (C) Glucose Ur Strip.auto-mCnc 250 mg/dl (NEGATIVE) None Note: Responsible Observer: GLUCOSE GLUC OSE 300.3850 (C) Appearance Ur See Note (CLEAR) A (Abnormal) Note: TURBIDTURBIDLTURBIDResponsible Obs erver: APPEARANCE APPEARANCE 300.3400 (A) Color Ur See Note None Note: YELLOWYELLOWLYELLOWResponsible Obs erver: COLOR COLOR 300.3330 (A) Leukocyte esterase Ur Ql Strip See Note (NEGATIVE) None Note: [id number]@DO MICR O!!!!A Culture has been added to this specimen per established criteriaResponsible Observer: LEUKOCYTES LEUKOCYTES 300.3576 (C) Nitrite Ur Ql Strip See Note (NEGATIVE) None Note: [id number] EResponsible Observer: NITRITE NITRITE 300.3652 (B) pH [...] are final unless otherwise noted. Urine culture [facility] Ordered by Maya Barron MD on 12/28/2020 Collected: 12/28/2020 Reported: 12/30/2020 08:03 Urine culture result 25,000 CFU/ML Lactobacilli no senst done None NOTES See Note None Note: @12/28/202155: Urine culture adde d. RFLXG = CULT.ADD. Reviewed by Maya Barron MD on 01/01; All test results are final unless otherwise noted. Reported Physicians [facility] Ordered by Maya Barron MD on 12/28/2020 Collected: 12/28/2020 Reported: 12/30/2020 08:03 Reported Physicians See Note None Note: Reported Physicians:Ordering: Sana Recinosending: Sammie Ann To: Maya Barron Reviewed by Maya Barron MD on 01/01; All test results are final unless otherwise noted. ADD ON MICROSCOPIC [facility] Ordered by Maya Barron MD [...] Ql Micro Amorph Sed UrnS Ql Micro [id number] Amorph Sed UrnS Ql Micro Amorph Sed UrnS Ql Micro LARGE AMT URATES Bacteria UrnS Ql Micro SMALL AMOUNT Bacteria UrnS Ql Micro SMALL AMOUNT Bacteria UrnS Ql Micro L Bacteria UrnS Ql Micro Bacteria UrnS Ql Micro Bacteria UrnS Ql Micro Bacteria UrnS Ql Micro [id number] Bacteria UrnS Ql Micro Bacteria UrnS Ql [...] are final unless otherwise noted. Reported Physicians [facility] Ordered by Maya Barron MD on 12/28/2020 Collected: 12/28/2020 Reported: 12/28/2020 21:56 Reported Physicians See Note None Note: Reported Physicians:Ordering: Sana Recinosending: Sammie Ann To: Maya Barron Reviewed by Maya Barron MD on 01/01; All test results are final unless otherwise noted. Cepheid SARS/FLU/RSV RT-PCR [facility] Ordered by Maya Barron MD [...] by FDA under an EUA for use byAdBm Technologiesaelagicmcrap81124-0BFCB-gnt CoV RNA Resp Ql ТАТЬЯНА+zhimvVABYAQNYXTK-ALN-9 NOT [id number]-EOS-6 NOT DXUGJHEC70600-2PGRAB RNA Resp Ql ТАТЬЯНА+probeLNNFLUAInfluenza A Not Det [id number] A Not Vddvunqe92839-4NBLAW RNA Resp Ql ТАТЬЯНА+probeLNNINBInfluenza B Not [id number] B Not Vrlqiwjm46689- 2RSV RNA Resp Ql ТАТЬЯНА+probeLNNRSVRSV Not BmdfndwuP6312713794XAL Not Detected Reviewed by Maya Barron MD on 01/01; All test results are final unless otherwise noted. Reported Physicians [facility] Ordered by Maya Barron MD on 12/28/2020 Collected: 12/28/2020 Reported: 12/28/2020 22:13 Reported Physicians See Note None Note: Reported Physicians:Ordering: Sana Recinosending: Sammie Ann To: Maya Barron Reviewed by Maya Barron MD on 01/01; All test results are final unless otherwise noted. CBC W AUTO DIFF [facility] Ordered by Maya Barron MD [...] Auto See Note (0-2) N (Normal) Note: 0.30.2V89787913160.3Responsible Ob sql server developer: IG% IG% 100.1375 (B) Hct VFr Bld [...] test results are final unless otherwise noted. [facility] Ordered by Maya Barron MD [...] results are final unless otherwise noted. LAC [facility] Ordered by Maya Barron MD on 12/28/2020 Collected: 12/28/2020 Reported: 12/28/2020 21:08 Lactic w Rfx (if elevated) 1.5 MilliMolesPerLiter_[Substance_Concentration_Units] (0.5-2.0) N (Normal) Note: Responsible Observer: Lactic Acid Lactic Acid 400.2831 (G) Reviewed by Maya Barron MD on 01/03; All test results are final unless otherwise noted. Blood Culture (Incl Anaerobic)-1 [facility] Ordered by Maya Barron MD on 12/28/2020 Collected: 12/28/2020 Reported: 01/02/2021 20:38 Bacteria Bld Cult See Note None Note: NG5DNo growth.P6RX5PPX GROWTH AFTE R 5 DAYS Reviewed by Maya Barron MD on 01/03; All test results are final unless otherwise noted. Blood Culture (Incl Anaerobic)-2 [facility] Ordered by Maya Barron MD on 12/28/2020 Collected: 12/28/2020 Reported: 01/02/2021 20:38 Bacteria Bld Cult See Note None Note: NG5DNo growth.A8SS5BLW GROWTH AFTE R 5 DAYS Reviewed by Maya Barron MD on 01/03; All test results are final unless otherwise noted. Reported Physicians [facility] Ordered by Maya Barron MD on 12/28/2020 Collected: 12/28/2020 Reported: 01/02/2021 20:38 Reported Physicians See Note None Note: Reported Physicians:Ordering: Sana Recinosending: Sammie Ann To: Maya Barron Reviewed by Maya Barron MD on 01/03; All test results are final unless otherwise noted. COMPREHENSIVE METABOLIC PANEL [facility] Ordered by Maya Barron [...] are final unless otherwise noted. Reported Physicians [facility] Ordered by Maya Barron MD on 12/28/2020 Collected: 12/28/2020 Reported: 12/28/2020 04:05 Reported Physicians See Note None Note: Reported Physicians:Ordering: TURR IN, RICCARDOAttending: ARIA MEJIACARDOConsulting: Rubén BARRON To: ROBERTO, RICCARDOCopy To: JESSEE MEJIA Reviewed by Maya Barron MD on 12/29; All test results are final unless otherwise noted. LIPASE SERUM [facility] Ordered by Maya Barron MD on 12/28/2020 Collected: 12/28/2020 Reported: 12/28/2020 04:05 LIPASE 33 U/L (13 - 60) None Note: Responsible Observer: (MLE) Reviewed by Maya Barron MD on 12/29; All test results are final unless otherwise noted. Reported Physicians [facility] Ordered by Maya Barron MD on 12/28/2020 Collected: 12/28/2020 Reported: 12/28/2020 04:06 Reported Physicians See Note None Note: Reported Physicians:Ordering: TURR IN, RICCARDOAttending: TURRIN, RICCARDOConsulting: Rubén BARRON To: ROBERTO, RICCARDOCopy To: JESSEE MEJIA Reviewed by Maya Barron MD on 12/29; All test results are final unless otherwise noted. PT/PTT [facility] Ordered by Maya Barron MD [...] Thrombosis, Pulmonary Embolus, Tissue heart valves, Acute MS Atrial Fibrillation, Valvular heart disease and recurrent Systemic Embolism. - International Normalized Ratio (INR): 2.5 - 3.5 for Mechanical Prosthetic valve.Responsible Observer: (LBS) Reviewed by Maya Barron MD on 12/29; All test results are final unless otherwise noted. Reported Physicians [facility] Ordered by Maya Barron MD on 12/28/2020 Collected: 12/28/2020 Reported: 12/28/2020 03:46 Reported Physicians See Note None Note: Reported Physicians:Ordering: TURR IN, RICCARDOAttending: ROBERTO, RICCARDOConsulting: Rubén BARRON To: ROBERTO, RICCARDOCopy To: JESSEE MEJIA Reviewed by Maya Barron MD on 12/29; All test results are final unless otherwise noted. CBC W/AUTOMATED DIFF [facility] Ordered by Maya Barron MD [...] are final unless otherwise noted. Reported Physicians [facility] Ordered by Maya Barron MD on 12/28/2020 Collected: 12/28/2020 Reported: 12/28/2020 03:34 Reported Physicians See Note None Note: Reported Physicians:Ordering: TURR IN, RICCARDOAttending: ROBERTO RICCARDOConsulting: Rubén BARRON To: JESSEE MEJIACopy To: JESSEE MEJIA Reviewed by Maya Barron MD on 12/29; All test results are final unless otherwise noted. TROPONIN T [facility] Ordered by Maya Barron MD on 12/28/2020 Collected: 12/28/2020 Reported: 12/28/2020 04:05 TROPONIN T <0.01 NG/ML (0.00 - 0.10) None Note: TROPONIN T0.1 ng/ml Recommended as the clinical threshold value forTroponin T.Responsible Observer: (MLE) Reviewed by Maya Barron MD on 12/29; All test results are final unless otherwise noted. Reported Physicians [facility] Ordered by Maya Barron MD on 12/28/2020 Collected: 12/28/2020 Reported: 12/28/2020 04:05 Reported Physicians See Note None Note: Reported Physicians:Ordering: TURR IN, RICCARDOAttending: HOLLYRIN RICCARDOConsulting: Rubén BARRON To: TURRIN, RICCARDOCopy To: HOLLYRIN, JESSEE Reviewed by Maya Barron MD on 12/29; All test results are final unless otherwise noted. D-DIMER [facility] Ordered by Maya Barron MD on 12/28/2020 Collected: 12/28/2020 Reported: 12/28/2020 03:46 D-DIMER QUANT 0.36 ug/mL (0.27 - 0.50) None Note: Responsible Observer: (LBS) Reviewed by Maya Barron MD on 12/29; All test results are final unless otherwise noted. Reported Physicians [facility] Ordered by Maya Barron MD on 12/28/2020 Collected: 12/28/2020 Reported: 12/28/2020 03:46 Reported Physicians See Note None Note: Reported Physicians:Ordering: TURR IN, RICCARDOAttending: HOLLYRIN, RICCARDOConsulting: Rubén BARRON To: ROBERTO, RICCARDOCopy To: ROBERTO, JESSEE Reviewed by Maya Barron MD on 12/29; All test results are final unless otherwise noted. Cepheid SARS/FLU/RSV RT-PCR [facility] Ordered by Maya Barron MD [...] by FDA under an EUA for use byNema LabshoriLennar Corporationqwbgxvxzvvkl87997-8AOVA-jpq CoV RNA Resp Ql ТАТЬЯНА+nnmtiLAGLLHAYIIC-LLK-3 NOT RFFIHCGCI8195369395HVCB-RXP-7 NOT BDPMXNDX60506-6GEPSY RNA Resp Ql ТАТЬЯНА+probeLNNFLUAInfluenza A Not Det [id number] A Not Kurdxvnh78373-5BKBZW RNA Resp Ql ТАТЬЯНА+probeLNNINBInfluenza B Not XnrqdzqlY2524538263Qndhidbbl B Not Gfbusyus00082- 2RSV RNA Resp Ql ТАТЬЯНА+probeLNNRSVRSV Not HljsyvunH2355518070MRQ Not Detected Reviewed by Maya Barron MD on 12/25; All test results are final unless otherwise noted. Reported Physicians [facility] Ordered by Maya Barron MD on 12/23/2020 Collected: 12/23/2020 Reported: 12/23/2020 13:41 Reported Physicians See Note None Note: Reported Physicians:Ordering: Aj Ferreiraending: Jos Rivas To: Maya Barron Reviewed by Maya Barron MD on 12/25; All test results are final unless otherwise noted. ADD ON MICROSCOPIC [facility] Ordered by Maya Barron MD on 12/23/2020 Collected: 12/23/2020 Reported: 12/23/2020 08:51 ADD ON MICROSCOPIC See Note (0-5) None Note: NOTES OTHER/NOT INTERPRETED Bacteria UrnS Ql Micro MODERATE AMOUNT Bacteria UrnS Ql Micro MODERATE AMOUNT Bacteria UrnS Ql Micro L Bacteria UrnS Ql Micro Bacteria UrnS Ql Micro Bacteria UrnS Ql Micro Bacteria UrnS Ql Micro [id number] Bacteria UrnS Ql Micro Bacteria UrnS Ql [...] are final unless otherwise noted. Reported Physicians [facility] Ordered by Maya Barron MD on 12/23/2020 Collected: 12/23/2020 Reported: 12/23/2020 08:52 Reported Physicians See Note None Note: Reported Physicians:Ordering: Aj Ferreiraending: Jos Rivas To: Maya Barron Reviewed by Maya Barron MD on 12/25; All test results are final unless otherwise noted. UA W/ CULTURE IF ABNORMAL [facility] Ordered by Maya Barron MD on 12/23/2020 Collected: 12/23/2020 Reported: 12/23/2020 08:51 Urobilinogen Ur Ql See Note (0.2-1 EU/dl) None Note: 1 EU/dl1 EU/[id number] EU/dlRe sponsible Observer: UROBILINOGEN UROBILINOGEN 300.4500 (C) RBC # Ur Strip NEGATIVE (NEGATIVE) None Note: Responsible Observer: BLOOD BLOOD 300.4652 (C) Prot Ur Ql Strip See Note (NEGATIVE) None Note: [id number] ble Observer: PROTEIN PROTEIN 300.3750 (C) Ketones Ur Ql Strip See Note (NEGATIVE) None Note: [id number] EResponsible Observer: KETONE KETONE 300.3900 (C) Bilirub Ur Ql Strip.auto See Note (NEGATIVE) None Note: [id number] EResponsible Observer: BILIRUBIN BILIRUBIN 300.4550 (C) Glucose Ur Strip.auto-mCnc NEGATIVE (NEGATIVE) None Note: Responsible Observer: GLUCOSE GLUC OSE 300.3850 (C) Appearance Ur See Note (CLEAR) A (Abnormal) Note: TURBIDTURBIDLTURBIDResponsible Obs erver: APPEARANCE APPEARANCE 300.3400 (A) Color Ur See Note None Note: YELLOWYELLOWLYELLOWResponsible Obs erver: COLOR COLOR 300.3330 (A) Leukocyte esterase Ur Ql Strip See Note (NEGATIVE) None Note: [id number]@DO MICR O!!!!A Culture has been added to this specimen per established criteriaResponsible Observer: LEUKOCYTES LEUKOCYTES 300.3576 (C) Nitrite Ur Ql Strip See Note (NEGATIVE) None Note: [id number] EResponsible Observer: NITRITE NITRITE 300.3652 (B) pH [...] are final unless otherwise noted. Urine culture [facility] Ordered by Maya Barron MD on 12/23/2020 Collected: 12/23/2020 Reported: 12/24/2020 10:07 Urine culture result See Note None Note: Less than 10,000 CFU/MLStaph spp, Strep spp, Corynebacterium sppProbable contaminants no senst done NOTES See Note None Note: @12/23/20 0851: Urine culture adde d. RFLXG = CULT.ADD. Reviewed by Maya Barron MD on 12/25; All test results are final unless otherwise noted. Reported Physicians [facility] Ordered by Maya Barron MD on 12/23/2020 Collected: 12/23/2020 Reported: 12/24/2020 10:07 Reported Physicians See Note None Note: Reported Physicians:Ordering: Aj Ferreiraending: Jos Rivas To: Maya Barron Reviewed by Maya Barron MD on 12/25; All test results are final unless otherwise noted. MAGNESIUM [facility] Ordered by Maya Barron MD on 12/23/2020 Collected: 12/23/2020 Reported: 12/23/2020 09:11 Magnesium SerPl-mCnc 2.1 MilliGramsPerDeciLiter_[Mass_Concentration_Units] (1.3-2.7) N (Normal) Note: Responsible Observer: Magnesium Ma gnesium 400.3300 (G) NOTES See Note None Note: ADD-ON Reviewed by Maya Barron MD on 12/25; All test results are final unless otherwise noted. Reported Physicians [facility] Ordered by Maya Barron MD on 12/23/2020 Collected: 12/23/2020 Reported: 12/23/2020 09:11 Reported Physicians See Note None Note: Reported Physicians:Ordering: Aj Ferreiraending: Jos Rivas To: Maya Barron Reviewed by Maya Barron MD on 12/25; All test results are final unless otherwise noted. TROPONIN [facility] Ordered by Maya Barron MD on 12/23/2020 Collected: 12/23/2020 Reported: 12/23/2020 09:39 Troponin I SerPl-mCnc Less Than 0.015 (0.00-0.09) N (Normal) Note: Less than 0.09 NG/ML Negative 0.10 - 0.77 NG/ML High Risk0.78 NG/ML or Greater PositiveThe WHO defined the cutoff (definition for diagnosis of MS)for this method as 0.78 ng/ml.Responsible Observer: Troponin I Troponin I 600.1101 (G) NOTES See Note None Note: ADD-ON Reviewed by Maya Barron MD on 12/25; All test results are final unless otherwise noted. Reported Physicians [facility] Ordered by Maya Barron MD on 12/23/2020 Collected: 12/23/2020 Reported: 12/23/2020 09:39 Reported Physicians See Note None Note: Reported Physicians:Ordering: Cristino FerreiraAttending: Jos Rivas To: Maya Barron Reviewed by Maya Barron MD on 12/25; All test results are final unless otherwise noted. D-DIMER [facility] Ordered by Maya Barron MD [...] are final unless otherwise noted. Reported Physicians [facility] Ordered by Maya Barron MD on 12/23/2020 Collected: 12/23/2020 Reported: 12/23/2020 09:39 Reported Physicians See Note None Note: Reported Physicians:Ordering: Aj Ferreiraending: Jos Rivas To: Maya Barron Reviewed by Maya Barron MD on 12/25; All test results are final unless otherwise noted. CBC W AUTO DIFF [facility] Ordered by Maya Barron MD [...] Auto See Note (0-2) N (Normal) Note: [id number] Ob sql server developer: IG% IG% 100.1375 (B) Hct VFr Bld [...] test results are final unless otherwise noted. [facility] Ordered by Maya Barron MD [...] are final unless otherwise noted. Reported Physicians [facility] Ordered by Maya Barron MD on 12/23/2020 Collected: 12/23/2020 Reported: 12/23/2020 08:29 Reported Physicians See Note None Note: Reported Physicians:Ordering: Cristino FerreiraAttending: Jos Rivas To: Maya Barron Reviewed by Maya Barron MD on 12/25; All test results are final unless otherwise noted. TSH HIGHLY SENSITIVE [facility] Ordered by Maya Barron MD on 12/16/2020 Collected: 12/16/2020 Reported: 12/16/2020 17:28 TSH 1.41 uIU/mL (0.47 - 5.01) None Note: Responsible Observer: (DW) Reviewed by Maya Barron MD on 12/18; All test results are final unless otherwise noted. Reported Physicians [facility] Ordered by Maya Barron MD on 12/16/2020 Collected: 12/16/2020 Reported: 12/16/2020 17:28 Reported Physicians See Note None Note: Reported Physicians:Ordering: VENUS ALONSOAttending: ALLYN PAPPASConsulting: Rubén BARRON To: Miguel Gonsalez To: ALLYN PAPPAS Reviewed by Maya Barron MD on 12/18; All test results are final unless otherwise noted. TROPONIN T [facility] Ordered by Maya Barron MD on 12/16/2020 Collected: 12/16/2020 Reported: 12/16/2020 16:30 TROPONIN T <0.01 NG/ML (0.00 - 0.10) None Note: TROPONIN T0.1 ng/ml Recommended as the clinical threshold value forTroponin T.Responsible Observer: (ABIOLA) Reviewed by Maya Barron MD on 12/18; All test results are final unless otherwise noted. Reported Physicians [facility] Ordered by Maya Barron MD on 12/16/2020 Collected: 12/16/2020 Reported: 12/16/2020 16:30 Reported Physicians See Note None Note: Reported Physicians:Ordering: Sunshine ALONSOending: ALLYN PAPPASConsulting: Rubén BARRON To: Miguel Gonsalez To: ALLYN PAPPAS Reviewed by Maya Barron MD on 12/18; All test results are final unless otherwise noted. COMPREHENSIVE METABOLIC PANEL [facility] Ordered by Maya Barron [...] yrs None Note: Responsible Observer: (ABIOLA) ALBUMIN 3.7 G/DL (3.9 - 5.0) L (Low) Note: Responsible Observer: (DW) ALKALINE PHOS 106 U/L (38 - 126) None Note: Responsible Observer: (DW) ANION GAP 12.0 mmol/L (8.0 - 16.0) None Note: Responsible Observer: (ABIOLA) BUN 6 MG/DL (7 - 21) L [...] are final unless otherwise noted. Reported Physicians [facility] Ordered by Maya Barron MD on 12/16/2020 Collected: 12/16/2020 Reported: 12/16/2020 16:30 Reported Physicians See Note None Note: Reported Physicians:Ordering: Sunshine ALONSOending: ALLYN PAPPASConsulting: Rubén BARRON To: Miguel Gonsalez To: ALLYN PAPPAS Reviewed by Maya Barron MD on 12/18; All test results are final unless otherwise noted. CBC W/AUTOMATED DIFF [facility] Ordered by Maya Barron MD [...] are final unless otherwise noted. Reported Physicians [facility] Ordered by Maya Barron MD on 12/16/2020 Collected: 12/16/2020 Reported: 12/16/2020 16:00 Reported Physicians See Note None Note: Reported Physicians:Ordering: Sunshine ALONSOending: ALLYN PAPPASConsulting: Rubén BARRON To: Miguel Gonsalez To: ALLYN PAPPAS Reviewed by Maya Barron MD on 12/18; All test results are final unless otherwise noted. PT/PTT [facility] Ordered by Maya Barron MD [...] Thrombosis, Pulmonary Embolus, Tissue heart valves, Acute MS Atrial Fibrillation, Valvular heart disease and recurrent Systemic Embolism. - International Normalized Ratio (INR): 2.5 - 3.5 for Mechanical Prosthetic valve.Responsible Observer: (ABIOLA) Reviewed by Maya Barron MD on 12/18; All test results are final unless otherwise noted. Reported Physicians [facility] Ordered by Maya Barron MD on 12/16/2020 Collected: 12/16/2020 Reported: 12/16/2020 16:30 Reported Physicians See Note None Note: Reported Physicians:Ordering: Sunshine ALONSOending: Remy PAPPASing: Rubén BARRON To: Miguel Gonsalez To: ALLYN PAPPAS Reviewed by Maya Barron MD on 12/18; All test results are final unless otherwise noted. LIPASE SERUM [facility] Ordered by Maya Barron MD on 12/16/2020 Collected: 12/16/2020 Reported: 12/16/2020 16:29 LIPASE 27 U/L (13 - 60) None Note: Responsible Observer: (ABIOLA) Reviewed by Maya Barron MD on 12/18; All test results are final unless otherwise noted. Reported Physicians [facility] Ordered by Maya Barron MD on 12/16/2020 Collected: 12/16/2020 Reported: 12/16/2020 16:29 Reported Physicians See Note None Note: Reported Physicians:Ordering: Sunshine ALONSOending: ALLYN PAPPASConsulting: Rubén BARRON To: Miguel Gonsalez To: ALLYN PAPPAS Reviewed by Maya Barron MD on 12/18; All test results are final unless otherwise noted. TROPONIN [facility] Ordered by Maya Barron MD on 12/13/2020 Collected: 12/13/2020 Reported: 12/13/2020 19:02 Troponin I SerPl-mCnc Less Than 0.015 (0.00-0.09) N (Normal) Note: Less than 0.09 NG/ML Negative 0.10 - 0.77 NG/ML High Risk0.78 NG/ML or Greater PositiveThe WHO defined the cutoff (definition for diagnosis of MS)for this method as 0.78 ng/ml.Responsible Observer: Troponin I Troponin I 600.1101 (G) Reviewed by Maya Barron MD on 12/15; All test results are final unless otherwise noted. Reported Physicians [facility] Ordered by Maya Barron MD on 12/13/2020 Collected: 12/13/2020 Reported: 12/13/2020 19:02 Reported Physicians See Note None Note: Reported Physicians:Ordering: Edgar Omerttending: Kevin Orozco To: Maya Barron Reviewed by Maya Barron MD on 12/15; All test results are final unless otherwise noted. TSH [facility] Ordered by Maya Barron MD on 12/13/2020 Collected: 12/13/2020 Reported: 12/13/2020 19:02 TSH SerPl DL<=0.005 mIU/L-aCnc 1.02 MicroInternationalUnitsPerMilliLiter_[Arbitrary_Con (0.35-5. 50) N (Normal) Note: Responsible Observer: TSH TSH 600 .7055 (D) Reviewed by Maya Barron MD on 12/15; All test results are final unless otherwise noted. Reported Physicians [facility] Ordered by Maya Barron MD on 12/13/2020 Collected: 12/13/2020 Reported: 12/13/2020 19:02 Reported Physicians See Note None Note: Reported Physicians:Ordering: Edgar Omerttending: Sharri OrozcoCopyifan To: Maya Barron Reviewed by Maya Barron MD on 12/15; All test results are final unless otherwise noted. CBC W AUTO DIFF [facility] Ordered by Maya Barron MD [...] Auto See Note (0-2) N (Normal) Note: [id number] Ob sql server developer: IG% IG% 100.1375 (B) Hct VFr Bld [...] results are final unless otherwise noted. PT/PTT [facility] Ordered by Maya Barron MD [...] test results are final unless otherwise noted. [facility] Ordered by Maya Barron MD [...] are final unless otherwise noted. Reported Physicians [facility] Ordered by Maya Barron MD on 12/13/2020 Collected: 12/13/2020 Reported: 12/13/2020 19:02 Reported Physicians See Note None Note: Reported Physicians:Ordering: Conchis Omerending: Pir ErnestoetManny To: Maya Barron Reviewed by Maya Barron MD on 12/15; All test results are final unless otherwise noted. UA W/ CULTURE IF ABNORMAL [facility] Ordered by Maya Barron MD on 12/13/2020 Collected: 12/13/2020 Reported: 12/13/2020 18:32 Urobilinogen Ur Ql See Note (0.2-1 EU/dl) None Note: 0.2 EU/dl0.2 EU/[id number] E U/dlResponsible Observer: UROBILINOGEN UROBILINOGEN 300.4500 (C) RBC # Ur Strip NEGATIVE (NEGATIVE) None Note: Responsible Observer: BLOOD BLOOD 300.4652 (C) Prot Ur Ql Strip See Note (NEGATIVE) None Note: [id number] EResponsible Observer: PROTEIN PROTEIN 300.3750 (C) Ketones Ur Ql Strip See Note (NEGATIVE) None Note: [id number] EResponsible Observer: KETONE KETONE 300.3900 (C) Bilirub Ur Ql Strip.auto See Note (NEGATIVE) None Note: [id number] EResponsible Observer: BILIRUBIN BILIRUBIN 300.4550 (C) Glucose Ur Strip.auto-mCnc NEGATIVE (NEGATIVE) None Note: Responsible Observer: GLUCOSE GLUC OSE 300.3850 (C) Appearance Ur See Note (CLEAR) None Note: CLEARCLEARLCLEARResponsible Observ er: APPEARANCE APPEARANCE 300.3400 (A) Color Ur See Note None Note: YELLOWYELLOWLYELLOWResponsible Obs erver: COLOR COLOR 300.3330 (A) Leukocyte esterase Ur Ql Strip See Note (NEGATIVE) None Note: [id number]@DO MICR O!!!!A Culture has been added to this specimen per established criteriaResponsible Observer: LEUKOCYTES LEUKOCYTES 300.3576 (C) Nitrite Ur Ql Strip See Note (NEGATIVE) None Note: [id number] EResponsible Observer: NITRITE NITRITE 300.3652 (B) pH [...] are final unless otherwise noted. Urine culture [facility] Ordered by Maya Barron MD on 12/13/2020 Collected: 12/13/2020 Reported: 12/14/2020 13:24 Bacteria Ur Cult See Note None Note: NGNo growth.L1NG NOTES See Note None Note: @12/13/20 1832: Urine culture adde d. RFLXG = CULT.ADD. Reviewed by Maya Barron MD on 12/15; All test results are final unless otherwise noted. Reported Physicians [facility] Ordered by Maya Barron MD on 12/13/2020 Collected: 12/13/2020 Reported: 12/14/2020 13:24 Reported Physicians See Note None Note: Reported Physicians:Ordering: Conchis Omerending: Kevin Orozco To: Maya Barron Reviewed by Maya Barron MD on 12/15; All test results are final unless otherwise noted. ADD ON MICROSCOPIC [facility] Ordered by Maya Barron MD on 12/13/2020 Collected: 12/13/2020 Reported: 12/13/2020 18:32 ADD ON MICROSCOPIC See Note (0-5) None Note: NOTES OTHER/NOT INTERPRETED Bacteria UrnS Ql Micro MODERATE AMOUNT Bacteria UrnS Ql Micro MODERATE AMOUNT Bacteria UrnS Ql Micro L Bacteria UrnS Ql Micro Bacteria UrnS Ql Micro Bacteria UrnS Ql Micro Bacteria UrnS Ql Micro [id number] Bacteria UrnS Ql Micro Bacteria UrnS Ql [...] are final unless otherwise noted. Reported Physicians [facility] Ordered by Maya Barron MD on 12/13/2020 Collected: 12/13/2020 Reported: 12/13/2020 18:33 Reported Physicians See Note None Note: Reported Physicians:Ordering: Conchis Omerending: Pir ErnestoetManny To: Maya Barron Reviewed by Maya Barron MD on 12/15; All test results are final unless otherwise noted. TROPONIN T [facility] Ordered by Maya Barron MD on 12/09/2020 Collected: 12/09/2020 Reported: 12/09/2020 01:32 TROPONIN T <0.01 NG/ML (0.00 - 0.10) None Note: TROPONIN T0.1 ng/ml Recommended as the clinical threshold value forTroponin T.Responsible Observer: (AB) Reviewed by Maya Barron MD on 12/12; All test results are final unless otherwise noted. Reported Physicians [facility] Ordered by Maya Barron MD on 12/09/2020 Collected: 12/09/2020 Reported: 12/09/2020 01:32 Reported Physicians See Note None Note: Reported Physicians:Ordering: MARQUISE TOMLINSON CAttending: MARQUISE SOTOConsuing: Rubén BARRON To: Clare SOTO To: MARQUISE SOTO Reviewed by Maya Barron MD on 12/12; All test results are final unless otherwise noted. LIPASE SERUM [facility] Ordered by Maya Barron MD on 12/08/2020 Collected: 12/08/2020 Reported: 12/08/2020 22:32 LIPASE 33 U/L (13 - 60) None Note: Responsible Observer: (AB) Reviewed by Maya Barron MD on 12/12; All test results are final unless otherwise noted. Reported Physicians [facility] Ordered by Maya Barron MD on 12/08/2020 Collected: 12/08/2020 Reported: 12/08/2020 22:32 Reported Physicians See Note None Note: Reported Physicians:Ordering: MARQUISE TOMLINSON CAttending: MARQUISE SOTOConsulting: Rubén BARRON To: Clare SOTO To: MARQUISE SOTO Reviewed by Maya Barron MD on 12/12; All test results are final unless otherwise noted. TROPONIN T [facility] Ordered by Maya Barron MD on 12/08/2020 Collected: 12/08/2020 Reported: 12/08/2020 22:36 TROPONIN T <0.01 NG/ML (0.00 - 0.10) None Note: TROPONIN T0.1 ng/ml Recommended as the clinical threshold value forTroponin T.Responsible Observer: (AB) Reviewed by Maya Barron MD on 12/12; All test results are final unless otherwise noted. Reported Physicians [facility] Ordered by Maya Barron MD on 12/08/2020 Collected: 12/08/2020 Reported: 12/08/2020 22:36 Reported Physicians See Note None Note: Reported Physicians:Ordering: MARQUISE TOMLINSONtending: MARQUISE SOTOConsulting: MAYA BARRONCopy To: MARQUISE SOTOCopy To: MARQUISE SOTO Reviewed by Maya Barron MD on 12/12; All test results are final unless otherwise noted. COMPREHENSIVE METABOLIC PANEL [facility] Ordered by Maya Barron [...] are final unless otherwise noted. Reported Physicians [facility] Ordered by Maya Barron MD on 12/08/2020 Collected: 12/08/2020 Reported: 12/08/2020 22:36 Reported Physicians See Note None Note: Reported Physicians:Ordering: MARQUISE TOMLINSON CAttending: MARQUISE SOTOConsulting: Rubén BARRON To: MARQUISE SOTOCopyifan To: MARQUISE SOTO Reviewed by Maya Barron MD on 12/12; All test results are final unless otherwise noted. TROPONIN [facility] Ordered by Maya Barron MD on 12/01/2020 Collected: 12/01/2020 Reported: 12/01/2020 18:18 Troponin I SerPl-mCnc Less Than 0.015 (0.00-0.09) N (Normal) Note: Less than 0.09 NG/ML Negative 0.10 - 0.77 NG/ML High Risk0.78 NG/ML or Greater PositiveThe WHO defined the cutoff (definition for diagnosis of MS)for this method as 0.78 ng/ml.Responsible Observer: Troponin I Troponin I 600.1101 (G) Reviewed by Maya Barron MD on 12/04; All test results are final unless otherwise noted. Reported Physicians [facility] Ordered by Maya Barron MD on 12/01/2020 Collected: 12/01/2020 Reported: 12/01/2020 18:19 Reported Physicians See Note None Note: Reported Physicians:Ordering: Math is, TimothyAttending: Pardo, TimothyCopy To: Maya Barron Reviewed by Maya Barron MD on 12/04; All test results are final unless otherwise noted. CBC W AUTO DIFF [facility] Ordered by Maya Barron MD [...] Auto See Note (0-2) N (Normal) Note: [id number] Ob sql server developer: IG% IG% 100.1375 (B) Hct VFr Bld [...] test results are final unless otherwise noted. [facility] Ordered by Maya Barron MD [...] results are final unless otherwise noted. D-DIMER [facility] Ordered by Maya Barron MD [...] are final unless otherwise noted. Reported Physicians [facility] Ordered by Maya aBrron MD on 12/01/2020 Collected: 12/01/2020 Reported: 12/01/2020 18:19 Reported Physicians See Note None Note: Reported Physicians:Ordering: Sara Kaurending: Adam Pardo To: Maya Barron Reviewed by Maya Barron MD on 12/04; All test results are final unless otherwise noted. Cepheid CT/NG RT-PCR [facility] Ordered by Maya Barron MD [...] may result in failure to detect the targetorganisms.19619-4J trach DNA Vag Ql ТАТЬЯНА+probeLNCHLAMNC. trachomatis NOT [id number]. trachomatis NOT [id number] gonorrhoea rRNA Vag Ql ТАТЬЯНА+probeLNNEIGNN.gonorrhoeae NOT [id number].gonorrhoeae NOT DETECTED Reviewed by Maya Barron MD on 11/29; All test results are final unless otherwise noted. Reported Physicians [facility] Ordered by Maya Barron MD on 11/29/2020 Collected: 11/29/2020 Reported: 11/29/2020 07:03 Reported Physicians See Note None Note: Reported Physicians:Ordering: Estela SamuelAttending: Vianey Up To: Maya Barron Reviewed by Maya Barron MD on 11/29; All test results are final unless otherwise noted. AFFIRM [facility] Ordered by Maya Barron MD on 11/29/2020 Collected: 11/29/2020 Reported: 11/30/2020 13:21 Dionna species DNA Probe NOT DETECTED (NOT DETECTED) None Note: THIS TEST WAS PERFORMED AT:[facility] [address] [id number] MERATI,CLAUDYesponsible Observer: Dionna DNA Dionna species DNA Probe [id number] 913.2350 ([facility]) Gardnerella DNA Probe DETECTED (NOT DETECTED) H (High) Note: Increased levels of G. vaginalis m ay not be significantin the absence of signs and symptoms of bacterialvaginosis.Responsible Observer: Gardnerella DNA Gardnerella DNA Probe [id number] 913.2345 ([facility]) Trichomonas DNA Probe NOT DETECTED (NOT DETECTED) None Note: Responsible Observer: Trichomonas DNA Trichomonas DNA Probe [id number] 913.2340 ([facility]) Reviewed by Maya Barron MD on 12/01; All test results are final unless otherwise noted. Reported Physicians [facility] Ordered by Maya Barron MD on 11/29/2020 Collected: 11/29/2020 Reported: 11/30/2020 13:21 Reported Physicians See Note None Note: Reported Physicians:Ordering: Estela SamuelAttending: Vianey Up To: Maya Barron Reviewed by Maya Barron MD on 12/01; All test results are final unless otherwise noted. UA W/ CULTURE IF ABNORMAL [facility] Ordered by Maya Barron MD on 11/29/2020 Collected: 11/29/2020 Reported: 11/29/2020 04:49 Urobilinogen Ur Ql See Note (0.2-1 EU/dl) None Note: 0.2 EU/dl0.2 EU/[id number] E U/dlResponsible Observer: UROBILINOGEN UROBILINOGEN 300.4500 (C) RBC # Ur Strip NEGATIVE (NEGATIVE) None Note: Responsible Observer: BLOOD BLOOD 300.4652 (C) Prot Ur Ql Strip See Note (NEGATIVE) None Note: [id number] EResponsible Observer: PROTEIN PROTEIN 300.3750 (C) Ketones Ur Ql Strip See Note (NEGATIVE) None Note: [id number] EResponsible Observer: KETONE KETONE 300.3900 (C) Bilirub Ur Ql Strip.auto See Note (NEGATIVE) None Note: [id number] EResponsible Observer: BILIRUBIN BILIRUBIN 300.4550 (C) Glucose Ur Strip.auto-mCnc NEGATIVE (NEGATIVE) None Note: Responsible Observer: GLUCOSE GLUC OSE 300.3850 (C) Appearance Ur See Note (CLEAR) None Note: CLEARCLEARLCLEARResponsible Observ er: APPEARANCE APPEARANCE 300.3400 (A) Color Ur See Note None Note: YELLOWYELLOWLYELLOWResponsible Obs erver: COLOR COLOR 300.3330 (A) Leukocyte esterase Ur Ql Strip See Note (NEGATIVE) None Note: [id number]@DO MICR O!!!!A Culture has been added to this specimen per established criteriaResponsible Observer: LEUKOCYTES LEUKOCYTES 300.3576 (C) Nitrite Ur Ql Strip See Note (NEGATIVE) None Note: [id number] EResponsible Observer: NITRITE NITRITE 300.3652 (B) pH [...] are final unless otherwise noted. Urine culture [facility] Ordered by Maya Barron MD on 11/29/2020 Collected: 11/29/2020 Reported: 11/30/2020 07:23 Bacteria Ur Cult See Note None Note: NGNo growth.L1NG NOTES See Note None Note: @11/29/20 0450: Urine culture adde d. RFLXG = CULT.ADD. Reviewed by Maya Barron MD on 12/01; All test results are final unless otherwise noted. Reported Physicians [facility] Ordered by Maya Barron MD on 11/29/2020 Collected: 11/29/2020 Reported: 11/30/2020 07:23 Reported Physicians See Note None Note: Reported Physicians:Ordering: Estela SamuelAttending: Vianey Up To: Maya Barron Reviewed by Maya Barron MD on 12/01; All test results are final unless otherwise noted. ADD ON MICROSCOPIC [facility] Ordered by Maya Barron MD [...] WBC WBC 300.5005 (A) Reviewed by Maya Braron MD on 11/29; All test results are final unless otherwise noted. Reported Physicians [facility] Ordered by Maya Barron MD on 11/29/2020 Collected: 11/29/2020 Reported: 11/29/2020 04:51 Reported Physicians See Note None Note: Reported Physicians:Ordering: Estela SamuelAttending: Vianey Up To: Maya Barron Reviewed by Maya Barron MD on 11/29; All test results are final unless otherwise noted. TROPONIN [facility] Ordered by Maya Barron MD on 11/20/2020 Collected: 11/20/2020 Reported: 11/20/2020 20:04 Troponin I SerPl-mCnc Less Than 0.015 (0.00-0.09) N (Normal) Note: Less than 0.09 NG/ML Negative 0.10 - 0.77 NG/ML High Risk0.78 NG/ML or Greater PositiveThe WHO defined the cutoff (definition for diagnosis of MS)for this method as 0.78 ng/ml.Responsible Observer: Troponin I Troponin I 600.1101 (G) Reviewed by Maya Barron MD on 11/22; All test results are final unless otherwise noted. Reported Physicians [facility] Ordered by Maya Barron MD on 11/20/2020 Collected: 11/20/2020 Reported: 11/20/2020 20:05 Reported Physicians See Note None Note: Reported Physicians:Ordering: Les Vanegas AAttending: Fady Raza To: Maya Barron Reviewed by Maya Barron MD on 11/22; All test results are final unless otherwise noted. Cepheid SARS/FLU/RSV RT-PCR [facility] Ordered by Maya Barron MD [...] by FDA under an EUA for use bypres[facility] hospitalhoriLewis and [facility] [employer] [id number]-[id number] CoV RNA Resp Ql ТАТЬЯНА+prrnoMSPGBGIBJAH-OIX-2 NOT [id number]-GWV-5 NOT [id number] RNA Resp Ql ТАТЬЯНА+probeLNNFLUAInfluenza A Not Det [id number] A Not Kessavki24859-9ONEOE RNA Resp Ql ТАТЬЯНА+probeLNNINBInfluenza B Not [id number] B Not Kooiunfq20214- 2RSV RNA Resp Ql ТАТЬЯНА+probeLNNRSVRSV Not [id number] Not Detected Reviewed by Maya Barron MD on 11/20; All test results are final unless otherwise noted. Reported Physicians [facility] Ordered by Maya Barron MD on 11/18/2020 Collected: 11/18/2020 Reported: 11/18/2020 23:58 Reported Physicians See Note None Note: Reported Physicians:Ordering: Aj Snowending: Jos Castellanos To: Maya Barron Reviewed by Maya Barron MD on 11/20; All test results are final unless otherwise noted. URINE DRUG SCREEN -(LC) [facility] Ordered by Maya Barron MD on 11/17/2020 Collected: 11/17/2020 Reported: 11/17/2020 14:19 PCP Ur Ql Scn>25 ng/mL See Note (Cutoff 25) None Note: [id number] E@Reenter manual test result: NEGATIVE@by Claudia Tello at 11/17/20 1414.Responsible Observer: PCP Urine Phencyclidine (PCP) Scrn 400.5120 (A) THC Ur Ql Scn>50 ng/mL See Note (Cutoff 50) None Note: [id number] EResponsible Observer: Marijuana (THC) Ur Marijuana (THC) Screen 400.5110 (A) Benzodiaz Ur Ql Scn See Note (Cutoff 150) None Note: [id number] E@Reenter manual test result: NEGATIVE@by Claudia Tello at 11/17/20 1418.Responsible Observer: Benzodiazepines Urine Benzodiazepines Screen 400.5170 (A) Opiates Ur Ql Scn See Note (Cutoff 100) None Note: [id number] E@Reenter manual test result: NEGATIVE@by Claudia Tello at 11/17/20 1418.Responsible Observer: Opiates Urine Opiates Screen 400.5150 (A) Tricyclics Ur Ql Scn See Note (Cutoff 300) None Note: [id number] E@Reenter manual test result: NEGATIVE@by Claudia Tello at 11/17/20 141.Responsible Observer: TCA Ur Tricyclic Antidepressants 400.5180 (A) Cocaine Ur Ql Scn See Note (Cutoff 150) None Note: [id number] E@Reenter manual test result: NEGATIVE@by Claudia Tello at 11/17/20 141.Responsible Observer: Cocaine Urine Cocaine Screen 400.5130 (A) Propoxyph+Nor Ur Ql Scn See Note (Cutoff 300) None Note: [id number] E@Reenter manual test result: NEGATIVE@by Claudia Tello at 11/17/20 141.Responsible Observer: Propoxyphene Urine Propoxyphene Screen 400.5220 (A) Methadone Ur Ql Scn See Note (Cutoff 200) None Note: [id number] E@Reenter manual test result: NEGATIVE@by Claudia Tello at 11/17/20 141.Responsible Observer: Methadone Urine Methadone Screen 400.5190 (A) Methamphet Ur Ql Scn See Note (Cutoff 500) None Note: [id number] E@Reenter manual test result: NEGATIVE@by Claudia Tello at 11/17/20 1417.Responsible Observer: Methamphetamine Urine Methamphetamines Screen 400.5140 (A) oxyCODONE Ur Ql Scn See Note (Cutoff 100) None Note: [id number] E@Reenter manual test result: NEGATIVE@by Claudia Tello at 11/17/20 1418.Responsible Observer: Oxycodone Urine Oxycodone Screen 400.5210 (A) Buprenorphine Ur Ql See Note (Cutoff 10) None Note: [id number] E@Reenter manual test result: NEGATIVE@by Claudia Tello at 11/17/20 1419.Responsible Observer: Buprenorphine Urine Buprenorphine Screen 400.5230 (A) Amphetamines Ur Ql Scn>500 ng/mL See Note (Cutoff 500) None Note: [id number] E@Reenter manual test result: NEGATIVE@by Claudia Tello at 11/17/20 1418.Responsible Observer: Amphetamines Urine Amphetamines Screen 400.5160 (A) Barbiturates Ur Ql Scn>200 ng/mL See Note (Cutoff 200) None Note: [id number] E@Reenter manual test result: NEGATIVE@by Claudia Tello at 11/17/20 1418.Responsible Observer: Barbiturates Urine Barbiturates 400.5200 (A) Reviewed by Maya Barron MD on 11/20; All test results are final unless otherwise noted. IRON [facility] Ordered by Maya Barron MD on 11/17/2020 Collected: 11/17/2020 Reported: 11/17/2020 14:34 Iron SerPl-mCnc 39 (50-170) L (Low) Note: Iron values may be falsely elevate d in serum samples frompatients treated with anticoagulants (e.g., hemodialysispatients)Responsible Observer: Iron Level Iron Level 400.9002 (A) Reviewed by Maya Barron MD on 11/20; All test results are final unless otherwise noted. Reported Physicians [facility] Ordered by Maya Barron MD on 11/17/2020 Collected: 11/17/2020 Reported: 11/17/2020 14:34 Reported Physicians See Note None Note: Reported Physicians:Ordering: Cara Alvarengaending: Maya Barron Reviewed by Maya Barron MD on 11/20; All test results are final unless otherwise noted. FREE T4 (LAB) [facility] Ordered by Maya Barron MD on 11/17/2020 Collected: 11/17/2020 Reported: 11/17/2020 14:34 T4 Free SerPl-mCnc 0.78 NanoGramsPerDeciLiter_[Mass_Concentration_Units] (0.89-1.76) L (Low) Note: Responsible Observer: FREE T4 Free Thyroxine 600.7005 (D) Reviewed by Maya Barron MD on 11/20; All test results are final unless otherwise noted. Reported Physicians [facility] Ordered by Maya Barron MD on 11/17/2020 Collected: 11/17/2020 Reported: 11/17/2020 14:34 Reported Physicians See Note None Note: Reported Physicians:Ordering: Cara Alvarengaending: Maya Barron Reviewed by Maya Barron MD on 11/20; All test results are final unless otherwise noted. TSH [facility] Ordered by Maya Barron MD on 11/17/2020 Collected: 11/17/2020 Reported: 11/17/2020 14:34 TSH SerPl DL<=0.005 mIU/L-aCnc 1.38 MicroInternationalUnitsPerMilliLiter_[Arbitrary_Con (0.35-5. 50) N (Normal) Note: Responsible Observer: TSH TSH 600 .7055 (D) Reviewed by Maya Barron MD on 11/20; All test results are final unless otherwise noted. Reported Physicians [facility] Ordered by Maya Barron MD on 11/17/2020 Collected: 11/17/2020 Reported: 11/17/2020 14:34 Reported Physicians See Note None Note: Reported Physicians:Ordering: Cara Alvarengaending: Maya Barron Reviewed by Maya Barron MD on 11/20; All test results are final unless otherwise noted. CBC W AUTO DIFF [facility] Ordered by Maya Barron MD [...] Auto See Note (0-2) N (Normal) Note: [id number] Ob sql server developer: IG% IG% 100.1375 (B) Hct VFr Bld [...] results are final unless otherwise noted. HA1C [facility] Ordered by Maya Barron MD [...] blood glucose control.* High risk of developing correction complications such asretinopathy, nephropathy, neuropathy, cardiopathy, etc. [...] results are final unless otherwise noted. CMP [facility] Ordered by Maya Barron MD [...] final unless otherwise noted. Vitamin D 25-OH [facility] Ordered by Maya Barron MD [...] VIT D, (D2,D3), LC/MS/MS is recommended: ordercode 82876 (patients >2yrs).See Note 1Note 1For additional information, please refer tohttp://education.[employer].Zouxiu/faq/SLV236(This link is being provided for informational/educational purposes only.)THIS TEST WAS PERFORMED AT:[facility] [id number] ONEILLesponsible Observer: Vitamin D 25-OH Vitamin D 25-Hydroxy [id number] 104.4400 ([employer]) Reviewed by Maya Barron MD on 11/20; All test results are final unless otherwise noted. Reported Physicians [facility] Ordered by Maya Barron MD on 11/17/2020 Collected: 11/17/2020 Reported: 11/18/2020 08:17 Reported Physicians See Note None Note: Reported Physicians:Ordering: Maya AlvarengaAttending: Maya Barron Reviewed by Maya Barron MD on 11/20; All test results are final unless otherwise noted. BHCG Quantitative [facility] Ordered by Maya Barron MD on 10/23/2020 Collected: 10/23/2020 Reported: 10/23/2020 01:21 B-HCG SerPl-aCnc 40639 MilliInternationalUnitsPerMilliLiter_[Arbitrary_Con (0-10) H (High) Note: @Instrument will [...] are final unless otherwise noted. Reported Physicians [facility] Ordered by Maya Barron MD on 10/23/2020 Collected: 10/23/2020 Reported: 10/23/2020 01:21 Reported Physicians See Note None Note: Reported Physicians:Ordering: Yoli NapolesAttending: Charles Silva To: Maya Barron Reviewed by Maya Barron MD on 10/23; All test results are final unless otherwise noted. TROPONIN [facility] Ordered by Maya Barron MD on 10/23/2020 Collected: 10/23/2020 Reported: 10/23/2020 01:03 Troponin I SerPl-mCnc Less Than 0.015 (0.00-0.09) N (Normal) Note: Less than 0.09 NG/ML Negative 0.10 - 0.77 NG/ML High Risk0.78 NG/ML or Greater PositiveThe WHO defined the cutoff (definition for diagnosis of MS)for this method as 0.78 ng/ml.Responsible Observer: Troponin I Troponin I 600.1101 (G) Reviewed by Myaa Barron MD on 10/23; All test results are final unless otherwise noted. Reported Physicians [facility] Ordered by Maya Barron MD on 10/23/2020 Collected: 10/23/2020 Reported: 10/23/2020 01:03 Reported Physicians See Note None Note: Reported Physicians:Ordering: Yoli NapolesAttending: Charles Silva To: Maya Barron Reviewed by Maya Barron MD on 10/23; All test results are final unless otherwise noted. CBC W AUTO DIFF [facility] Ordered by Maya Barron MD [...] Auto See Note (0-2) N (Normal) Note: [id number] Ob sql server developer: IG% IG% 100.1375 (B) Hct VFr Bld [...] test results are final unless otherwise noted. [facility] Ordered by Maya Barron MD [...] results are final unless otherwise noted. D-DIMER [facility] Ordered by Maya Barron MD [...] are final unless otherwise noted. Reported Physicians [facility] Ordered by Maya Barron MD on 10/23/2020 Collected: 10/23/2020 Reported: 10/23/2020 01:22 Reported Physicians See Note None Note: Reported Physicians:Ordering: Yoli NapolesAttending: Charles Silva To: Maya Barron Reviewed by Maya Barron MD on 10/23; All test results are final unless otherwise noted. TSH [facility] Ordered by Maya Barron MD on 10/21/2020 Collected: 10/21/2020 Reported: 10/21/2020 15:17 TSH SerPl DL<=0.005 mIU/L-aCnc 1.40 MicroInternationalUnitsPerMilliLiter_[Arbitrary_Con (0.35-5. 50) N (Normal) Note: Responsible Observer: TSH TSH 600 .7055 (D) Reviewed by Maya Barron MD on 10/23; All test results are final unless otherwise noted. Reported Physicians [facility] Ordered by Maya Barron MD on 10/21/2020 Collected: 10/21/2020 Reported: 10/21/2020 15:17 Reported Physicians See Note None Note: Reported Physicians:Ordering: Talisha is TimothyAttending: Tramaine PardoothyCopyifan To: Maya Barron Reviewed by Maya Barron MD on 10/23; All test results are final unless otherwise noted. FREE T4 (LAB) [facility] Ordered by Maya Barron MD on 10/21/2020 Collected: 10/21/2020 Reported: 10/21/2020 15:17 T4 Free SerPl-mCnc 0.97 NanoGramsPerDeciLiter_[Mass_Concentration_Units] (0.89-1.76) N (Normal) Note: Responsible Observer: FREE T4 Free Thyroxine 600.7005 (D) Reviewed by Maya Barron MD on 10/23; All test results are final unless otherwise noted. Reported Physicians [facility] Ordered by Maya Barron MD on 10/21/2020 Collected: 10/21/2020 Reported: 10/21/2020 15:17 Reported Physicians See Note None Note: Reported Physicians:Ordering: Tramaine KaurothyAttending: Tramaine PardoothyCopyifan To: Maya Barron Reviewed by Maya Barron MD on 10/23; All test results are final unless otherwise noted. UA W/ CULTURE IF ABNORMAL [facility] Ordered by Maya Barron MD on 10/19/2020 Collected: 10/19/2020 Reported: 10/19/2020 16:31 Urobilinogen Ur Ql See Note (0.2-1 EU/dl) None Note: 0.2 EU/dl0.2 EU/[id number] E U/dlResponsible Observer: UROBILINOGEN UROBILINOGEN 300.4500 (C) RBC # Ur Strip NEGATIVE (NEGATIVE) None Note: Responsible Observer: BLOOD BLOOD 300.4652 (C) Prot Ur Ql Strip See Note (NEGATIVE) None Note: [id number] EResponsible Observer: PROTEIN PROTEIN 300.3750 (C) Ketones Ur Ql Strip See Note (NEGATIVE) None Note: [id number] EResponsible Observer: KETONE KETONE 300.3900 (C) Bilirub Ur Ql Strip.auto See Note (NEGATIVE) None Note: [id number] EResponsible Observer: BILIRUBIN BILIRUBIN 300.4550 (C) Glucose Ur Strip.auto-mCnc 100 mg/dl (NEGATIVE) None Note: Responsible Observer: GLUCOSE GLUC OSE 300.3850 (C) Appearance Ur See Note (CLEAR) None Note: CLEARCLEARLCLEARResponsible Observ er: APPEARANCE APPEARANCE 300.3400 (A) Color Ur See Note None Note: YELLOWYELLOWLYELLOWResponsible Obs erver: COLOR COLOR 300.3330 (A) Leukocyte esterase Ur Ql Strip See Note (NEGATIVE) None Note: [id number] EResponsible Observer: LEUKOCYTES LEUKOCYTES 300.3576 (C) Nitrite Ur Ql Strip See Note (NEGATIVE) None Note: [id number] EResponsible Observer: NITRITE NITRITE 300.3652 (B) pH [...] are final unless otherwise noted. Reported Physicians [facility] Ordered by Maya Barron MD on 10/19/2020 Collected: 10/19/2020 Reported: 10/19/2020 16:31 Reported Physicians See Note None Note: Reported Physicians:Ordering: Les Vanegas AAttending: Fady Raza To: Maya Barron Reviewed by Maya Barron MD on 10/20; All test results are final unless otherwise noted. URINE DRUG SCREEN -(LC) [facility] Ordered by Maya Barron MD on 10/19/2020 Collected: 10/19/2020 Reported: 10/19/2020 16:40 PCP Ur Ql Scn>25 ng/mL See Note (Cutoff 25) None Note: [id number] E@Reenter manual test result: NEGATIVE@by Jia Lentz at 10/19/20 1639.Responsible Observer: PCP Urine Phencyclidine (PCP) Scrn 400.5120 (A) THC Ur Ql Scn>50 ng/mL See Note (Cutoff 50) None Note: [id number] EResponsible Observer: Marijuana (THC) Ur Marijuana (THC) Screen 400.5110 (A) Benzodiaz Ur Ql Scn See Note (Cutoff 150) None Note: [id number] E@Reenter manual test result: NEGATIVE@by Jia Lentz at 10/19/20 1640.Responsible Observer: Benzodiazepines Urine Benzodiazepines Screen 400.5170 (A) Opiates Ur Ql Scn See Note (Cutoff 100) None Note: [id number] E@Reenter manual test result: NEGATIVE@by Jia Lentz at 10/19/20 1640.Responsible Observer: Opiates Urine Opiates Screen 400.5150 (A) Tricyclics Ur Ql Scn See Note (Cutoff 300) None Note: [id number] E@Reenter manual test result: NEGATIVE@by Jia Lentz at 10/19/20 1640.Responsible Observer: TCA Ur Tricyclic Antidepressants 400.5180 (A) Cocaine Ur Ql Scn See Note (Cutoff 150) None Note: [id number] E@Reenter manual test result: NEGATIVE@by Jia Lentz at 10/19/20 1640.Responsible Observer: Cocaine Urine Cocaine Screen 400.5130 (A) Propoxyph+Nor Ur Ql Scn See Note (Cutoff 300) None Note: [id number] E@Reenter manual test result: NEGATIVE@by Jia Lentz at 10/19/20 1640.Responsible Observer: Propoxyphene Urine Propoxyphene Screen 400.5220 (A) Methadone Ur Ql Scn See Note (Cutoff 200) None Note: [id number] E@Reenter manual test result: NEGATIVE@by Jia Lentz at 10/19/20 1640.Responsible Observer: Methadone Urine Methadone Screen 400.5190 (A) Methamphet Ur Ql Scn See Note (Cutoff 500) None Note: [id number] E@Reenter manual test result: NEGATIVE@by Jia Lentz at 10/19/20 1640.Responsible Observer: Methamphetamine Urine Methamphetamines Screen 400.5140 (A) oxyCODONE Ur Ql Scn See Note (Cutoff 100) None Note: [id number] E@Reenter manual test result: NEGATIVE@by Jia Lentz at 10/19/20 1640.Responsible Observer: Oxycodone Urine Oxycodone Screen 400.5210 (A) Buprenorphine Ur Ql See Note (Cutoff 10) None Note: [id number] E@Reenter manual test result: NEGATIVE@by Jia Lentz at 10/19/20 1640.Responsible Observer: Buprenorphine Urine Buprenorphine Screen 400.5230 (A) Amphetamines Ur Ql Scn>500 ng/mL See Note (Cutoff 500) None Note: [id number] E@Reenter manual test result: NEGATIVE@by Jia Lentz at 10/19/20 1640.Responsible Observer: Amphetamines Urine Amphetamines Screen 400.5160 (A) Barbiturates Ur Ql Scn>200 ng/mL See Note (Cutoff 200) None Note: [id number] E@Reenter manual test result: NEGATIVE@by Jia Lentz at 10/19/20 1640.Responsible Observer: Barbiturates Urine Barbiturates 400.5200 (A) Reviewed by Maya Barron MD on 10/20; All test results are final unless otherwise noted. Reported Physicians [facility] Ordered by Maya Barron MD on 10/19/2020 Collected: 10/19/2020 Reported: 10/19/2020 16:40 Reported Physicians See Note None Note: Reported Physicians:Ordering: Les Vanegas AAttending: Fady Raza To: Maya Barron Reviewed by Maya Barron MD on 10/20; All test results are final unless otherwise noted. TSH w/ reflex to Free T4 [facility] Ordered by Maya Barron MD on 10/19/2020 Collected: 10/19/2020 Reported: 10/19/2020 16:08 TSH SerPl DL<=0.005 mIU/L-aCnc 1.66 MicroInternationalUnitsPerMilliLiter_[Arbitrary_Con (0.35-5. 50) N (Normal) Note: Responsible Observer: TSH TSH 600 .7060 (D) Reviewed by Maya Barron MD on 10/20; All test results are final unless otherwise noted. Reported Physicians [facility] Ordered by Maya Barron MD on 10/19/2020 Collected: 10/19/2020 Reported: 10/19/2020 16:08 Reported Physicians See Note None Note: Reported Physicians:Ordering: Les Vanegasding: Fady Raza To: Maya Barron Reviewed by Maya Barron MD on 10/20; All test results are final unless otherwise noted. CRP, C-REACTIVE PROTEIN [facility] Ordered by Maya Barron MD on 10/19/2020 Collected: 10/19/2020 Reported: 10/19/2020 16:08 CRP SerPl-mCnc 7.5 MilliGramsPerLiter_[Mass_Concentration_Units] (0.0-5.0) H (High) Note: Responsible Observer: CRP C-Reacti ve Protein 401.4355 (H) Reviewed by Maya Barron MD on 10/20; All test results are final unless otherwise noted. SED RATE [facility] Ordered by Maya Barron MD on 10/19/2020 Collected: 10/19/2020 Reported: 10/19/2020 16:32 ESR Bld Qn Westrgrn 22 (0-20) H (High) Note: @Reenter manual test result: 22@by Jia Lentz at 10/19/20 1632.Responsible Observer: SED RATE SED RATE 100.6400 (B) Reviewed by Maya Barron MD on 10/20; All test results are final unless otherwise noted. Reported Physicians [facility] Ordered by Maya Barron MD on 10/19/2020 Collected: 10/19/2020 Reported: 10/19/2020 16:33 Reported Physicians See Note None Note: Reported Physicians:Ordering: Les Vanegas AAttending: Fady Raza To: Maya Barron Reviewed by Maya Barron MD on 10/20; All test results are final unless otherwise noted. CMP [facility] Ordered by Maya Barron MD [...] unless otherwise noted. CBC W AUTO DIFF [facility] Ordered by Maya Barron MD [...] Auto See Note (0-2) N (Normal) Note: [id number] Ob sql server developer: IG% IG% 100.1375 (B) Hct VFr Bld [...] are final unless otherwise noted. Reported Physicians [facility] Ordered by Maya Barron MD on 10/19/2020 Collected: 10/19/2020 Reported: 10/19/2020 16:33 Reported Physicians See Note None Note: Reported Physicians:Ordering: Les Vanegas: Fady Raza To: Maya Barron Reviewed by Maya Barron MD on 10/20; All test results are final unless otherwise noted. TROPONIN [facility] Ordered by Maya Barron MD on 10/19/2020 Collected: 10/19/2020 Reported: 10/19/2020 16:10 Troponin I SerPl-mCnc Less Than 0.015 (0.00-0.09) N (Normal) Note: Less than 0.09 NG/ML Negative 0.10 - 0.77 NG/ML High Risk0.78 NG/ML or Greater PositiveThe WHO defined the cutoff (definition for diagnosis of MS)for this method as 0.78 ng/ml.Responsible Observer: Troponin I Troponin I 600.1101 (G) Reviewed by Maya Barron MD on 10/20; All test results are final unless otherwise noted. Reported Physicians [facility] Ordered by Maya Barron MD on 10/19/2020 Collected: 10/19/2020 Reported: 10/19/2020 16:10 Reported Physicians See Note None Note: Reported Physicians:Ordering: Les Vanegas: Fady Raza To: Maya Barron Reviewed by Maya Barron MD on 10/20; All test results are final unless otherwise noted. PT/PTT [facility] Ordered by Maya Barron MD [...] are final unless otherwise noted. Reported Physicians [facility] Ordered by Maya Barron MD on 10/08/2020 Collected: 10/08/2020 Reported: 10/08/2020 03:22 Reported Physicians See Note None Note: Reported Physicians:Ordering: Sana Recinosending: Norman Annopy To: Maya Barron Reviewed by Maya Barron MD on 10/09; All test results are final unless otherwise noted. BMP [facility] Ordered by Maya Barron MD [...] are final unless otherwise noted. Reported Physicians [facility] Ordered by Maya Barron MD on 10/08/2020 Collected: 10/08/2020 Reported: 10/08/2020 03:21 Reported Physicians See Note None Note: Reported Physicians:Ordering: Sana Recinosending: Sammie Ann To: Maya Barron Reviewed by Maya Barron MD on 10/09; All test results are final unless otherwise noted. CBC W AUTO DIFF [facility] Ordered by Maya Barron MD [...] Auto See Note (0-2) N (Normal) Note: [id number] Ob sql server developer: IG% IG% 100.1375 (B) Hct VFr Bld [...] results are final unless otherwise noted. MAGNESIUM [facility] Ordered by Maya Barron MD on 10/08/2020 Collected: 10/08/2020 Reported: 10/08/2020 03:17 Magnesium SerPl-mCnc 1.8 MilliGramsPerDeciLiter_[Mass_Concentration_Units] (1.3-2.7) N (Normal) Note: Responsible Observer: Magnesium Ma gnesium 400.3300 (G) Reviewed by Maya Barron MD on 10/09; All test results are final unless otherwise noted. D-DIMER [facility] Ordered by Maya Barron MD [...] are final unless otherwise noted. Reported Physicians [facility] Ordered by Maya Barron MD on 10/08/2020 Collected: 10/08/2020 Reported: 10/08/2020 03:27 Reported Physicians See Note None Note: Reported Physicians:Ordering: Sana Recinosending: Sammie Ann To: Maya Barron Reviewed by Maya Barron MD on 10/09; All test results are final unless otherwise noted. TSH w/ reflex to Free T4 [facility] Ordered by Maya Barron MD on 10/04/2020 Collected: 10/04/2020 Reported: 10/04/2020 17:42 TSH SerPl DL<=0.005 mIU/L-aCnc 1.92 MicroInternationalUnitsPerMilliLiter_[Arbitrary_Con (0.35-5. 50) N (Normal) Note: Responsible Observer: TSH TSH 600 .7060 (D) Reviewed by Maya Barron MD on 10/09; All test results are final unless otherwise noted. Reported Physicians [facility] Ordered by Maya Barron MD on 10/04/2020 Collected: 10/04/2020 Reported: 10/04/2020 17:42 Reported Physicians See Note None Note: Reported Physicians:Ordering: Les Vanegasding: Fady Raza To: Maya Barron Reviewed by Maya Barron MD on 10/09; All test results are final unless otherwise noted. TROPONIN [facility] Ordered by Maya Barron MD on 10/04/2020 Collected: 10/04/2020 Reported: 10/04/2020 17:35 Troponin I SerPl-mCnc Less Than 0.015 (0.00-0.09) N (Normal) Note: Less than 0.09 NG/ML Negative 0.10 - 0.77 NG/ML High Risk0.78 NG/ML or Greater PositiveThe WHO defined the cutoff (definition for diagnosis of MS)for this method as 0.78 ng/ml.Responsible Observer: Troponin I Troponin I 600.1101 (G) Reviewed by Maya Barron MD on 10/09; All test results are final unless otherwise noted. Reported Physicians [facility] Ordered by Maya Barron MD on 10/04/2020 Collected: 10/04/2020 Reported: 10/04/2020 17:35 Reported Physicians See Note None Note: Reported Physicians:Ordering: Les Vanegas: Fady Raza To: Maya Barron Reviewed by Maya Barron MD on 10/09; All test results are final unless otherwise noted. SED RATE [facility] Ordered by Maya Barron MD on 10/04/2020 Collected: 10/04/2020 Reported: 10/04/2020 18:05 ESR Bld Qn Westrgrn 16 (0-20) N (Normal) Note: @Reenter manual test result: 16@by Jia Lentz at 10/04/20 1805.Responsible Observer: SED RATE SED RATE 100.6400 (B) Reviewed by Maya Barron MD on 10/09; All test results are final unless otherwise noted. Reported Physicians [facility] Ordered by Maya Barron MD on 10/04/2020 Collected: 10/04/2020 Reported: 10/04/2020 18:06 Reported Physicians See Note None Note: Reported Physicians:Ordering: Les Vanegas: Fady Raza To: Maya Barron Reviewed by Maya Barron MD on 10/09; All test results are final unless otherwise noted. CBC W AUTO DIFF [facility] Ordered by Maya Barron MD [...] Auto See Note (0-2) N (Normal) Note: [id number] Ob sql server developer: IG% IG% 100.1375 (B) Hct VFr Bld [...] Unit None Note: Responsible Observer: NRBC# CORKY VICTOR M RBC 100.1362 (A) NUCLEATED RED BLOOD CELL 0 percent None Note: Responsible Observer: NRBC% NRBC% 100.1360 (B) Reviewed by Maya Barron MD on 10/09; All test results are final unless otherwise noted. [facility] Ordered by Maya Barron MD [...] are final unless otherwise noted. Reported Physicians [facility] Ordered by Maya Barron MD on 10/04/2020 Collected: 10/04/2020 Reported: 10/04/2020 17:42 Reported Physicians See Note None Note: Reported Physicians:Ordering: Les Vanegasding: Fady Raza To: Maya Barron Reviewed by Maya Barron MD on 10/09; All test results are final unless otherwise noted. BHCG Quantitative [facility] Ordered by Maya Barron MD on 10/03/2020 Collected: 10/03/2020 Reported: 10/03/2020 20:23 B-HCG SerPl-aCnc 46167 MilliInternationalUnitsPerMilliLiter_[Arbitrary_Con (0-10) H (High) Note: @Instrument will [...] are final unless otherwise noted. Reported Physicians [facility] Ordered by Maya Barron MD on 10/03/2020 Collected: 10/03/2020 Reported: 10/03/2020 20:23 Reported Physicians See Note None Note: Reported Physicians:Ordering: Yoli NapolesAttending: Charles Silva To: Maya Barron Reviewed by Maya Barron MD on 10/04; All test results are final unless otherwise noted. TROPONIN [facility] Ordered by Maya Barron MD on 10/03/2020 Collected: 10/03/2020 Reported: 10/03/2020 20:07 Troponin I SerPl-mCnc Less Than 0.015 (0.00-0.09) N (Normal) Note: Less than 0.09 NG/ML Negative 0.10 - 0.77 NG/ML High Risk0.78 NG/ML or Greater PositiveThe WHO defined the cutoff (definition for diagnosis of MS)for this method as 0.78 ng/ml.Responsible Observer: Troponin I Troponin I 600.1101 (G) Reviewed by Maya Barron MD on 10/04; All test results are final unless otherwise noted. Reported Physicians [facility] Ordered by Maya Barron MD on 10/03/2020 Collected: 10/03/2020 Reported: 10/03/2020 20:07 Reported Physicians See Note None Note: Reported Physicians:Ordering: Cliff Napolesending: Charles Silva To: Maya Barron Reviewed by Maya Barron MD on 10/04; All test results are final unless otherwise noted. CBC W AUTO DIFF [facility] Ordered by Maya Barron MD [...] Auto See Note (0-2) N (Normal) Note: [id number] Ob sql server developer: IG% IG% 100.1375 (B) Hct VFr Bld [...] test results are final unless otherwise noted. [facility] Ordered by Maya Barron MD [...] are final unless otherwise noted. Reported Physicians [facility] Ordered by Maya Barron MD on 10/03/2020 Collected: 10/03/2020 Reported: 10/03/2020 20:03 Reported Physicians See Note None Note: Reported Physicians:Ordering: Yoli NapolesAttending: Charles Silva To: Maya Barron Reviewed by Maya Barron MD on 10/04; All test results are final unless otherwise noted. FREE T4 (LAB) [facility] Ordered by Maya Barron MD on 10/03/2020 Collected: 10/03/2020 Reported: 10/03/2020 20:08 T4 Free SerPl-mCnc 0.97 NanoGramsPerDeciLiter_[Mass_Concentration_Units] (0.89-1.76) N (Normal) Note: Responsible Observer: FREE T4 Free Thyroxine 600.7005 (D) Reviewed by Maya Barron MD on 10/04; All test results are final unless otherwise noted. Reported Physicians [facility] Ordered by Maya Barron MD on 10/03/2020 Collected: 10/03/2020 Reported: 10/03/2020 20:08 Reported Physicians See Note None Note: Reported Physicians:Ordering: Yoli NapolesAttending: Charles Silva To: Maya Barron Reviewed by Maya Barron MD on 10/04; All test results are final unless otherwise noted. MANUAL DIFF [facility] Ordered by Maya Barron MD [...] are final unless otherwise noted. Reported Physicians [facility] Ordered by Maya Barron MD on 10/03/2020 Collected: 10/03/2020 Reported: 10/03/2020 19:56 Reported Physicians See Note None Note: Reported Physicians:Ordering: Yoli NapolesAttending: Charles Silva To: Maya Barron Reviewed by Maya Barron MD on 10/04; All test results are final unless otherwise noted. ADD ON MICROSCOPIC [facility] Ordered by Maya Barron MD on 10/03/2020 Collected: 10/03/2020 Reported: 10/03/2020 19:52 ADD ON MICROSCOPIC See Note (0-5) None Note: NOTES OTHER/NOT INTERPRETED Bacteria UrnS Ql Micro SMALL AMOUNT Bacteria UrnS Ql Micro SMALL AMOUNT Bacteria UrnS Ql Micro L Bacteria UrnS Ql Micro Bacteria UrnS Ql Micro Bacteria UrnS Ql Micro Bacteria UrnS Ql Micro [id number] Bacteria UrnS Ql Micro Bacteria UrnS Ql Micro SMALL AMOUNT Cells UrnS Micro FEW Cells UrnS Micro FEW Cells UrnS Micro FEW Cells UrnS Micro L Cells UrnS Micro Cells UrnS Micro Cells UrnS Micro Cells UrnS Micro Cells UrnS Micro WBC # Ur Manual 1-2 Reason for ordering culture: Abnormal findings UA@10/03/20 1941: UA W/ MICRO added. RFLXG = UMIC CIF.Method of Collection:: VoidedResponsible Observer: WBC WBC 300.5005 (A) Reviewed by Maya Barron MD on 10/04; All test results are final unless otherwise noted. Reported Physicians [facility] Ordered by Maya Barron MD on 10/03/2020 Collected: 10/03/2020 Reported: 10/03/2020 19:52 Reported Physicians See Note None Note: Reported Physicians:Ordering: Yoli NapolesAttending: Charles Silva To: Maya Barron Reviewed by Maya Barron MD on 10/04; All test results are final unless otherwise noted. UA W/ CULTURE IF ABNORMAL [facility] Ordered by Maya Barron MD on 10/03/2020 Collected: 10/03/2020 Reported: 10/03/2020 19:52 Urobilinogen Ur Ql See Note (0.2-1 EU/dl) None Note: 0.2 EU/dl0.2 EU/[id number] E U/dlResponsible Observer: UROBILINOGEN UROBILINOGEN 300.4500 (C) RBC # Ur Strip NEGATIVE (NEGATIVE) None Note: Responsible Observer: BLOOD BLOOD 300.4652 (C) Prot Ur Ql Strip See Note (NEGATIVE) None Note: [id number] EResponsible Observer: PROTEIN PROTEIN 300.3750 (C) Ketones Ur Ql Strip See Note (NEGATIVE) None Note: [id number] EResponsible Observer: KETONE KETONE 300.3900 (C) Bilirub Ur Ql Strip.auto See Note (NEGATIVE) None Note: [id number] EResponsible Observer: BILIRUBIN BILIRUBIN 300.4550 (C) Glucose Ur Strip.auto-mCnc NEGATIVE (NEGATIVE) None Note: Responsible Observer: GLUCOSE GLUC OSE 300.3850 (C) Appearance Ur See Note (CLEAR) None Note: CLEARCLEARLCLEARResponsible Observ er: APPEARANCE APPEARANCE 300.3400 (A) Color Ur See Note None Note: YELLOWYELLOWLYELLOWResponsible Obs erver: COLOR COLOR 300.3330 (A) Leukocyte esterase Ur Ql Strip See Note (NEGATIVE) None Note: [id number]@DO MICR O!!!!A Culture has been added to this specimen per established criteriaResponsible Observer: LEUKOCYTES LEUKOCYTES 300.3576 (C) Nitrite Ur Ql Strip See Note (NEGATIVE) None Note: [id number] EResponsible Observer: NITRITE NITRITE 300.3652 (B) pH [...] are final unless otherwise noted. Urine culture [facility] Ordered by Maya Barron MD on 10/03/2020 Collected: 10/03/2020 Reported: 10/04/2020 13:10 Bacteria Ur Cult See Note None Note: NGNo growth.L1NG NOTES See Note None Note: @10/03/201951: Urine culture adde d. RFLXG = CULT.ADD. Reviewed by Maya Barron MD on 10/04; All test results are final unless otherwise noted. Reported Physicians [facility] Ordered by Maya Barron MD on 10/03/2020 Collected: 10/03/2020 Reported: 10/04/2020 13:10 Reported Physicians See Note None Note: Reported Physicians:Ordering: Yoli NapolesAttending: Charles Silva To: Maya Barron Reviewed by Maya Barron MD on 10/04; All test results are final unless otherwise noted. BHCG, QUANTITATIVE [facility] Ordered by Maya Barron MD on 09/18/2020 Collected: 09/18/2020 Reported: 09/18/2020 20:21 [facility] 166250 MilliInternationalUnitsPerMilliLiter_[Arbitrary_Con (0-10) H (High) Note: APPROXIMATE GESTATION [...] are final unless otherwise noted. Reported Physicians [facility] Ordered by Maya Barron MD on 09/18/2020 Collected: 09/18/2020 Reported: 09/18/2020 20:22 Reported Physicians See Note None Note: Reported Physicians:Ordering: Yoli NapolesAttending: Charles Silva To: Maya Barron Reviewed by Maya Barron MD on 09/20; All test results are final unless otherwise noted. CBC W AUTO DIFF [facility] Ordered by Maya Barron MD [...] Auto See Note (0-2) N (Normal) Note: [id number] Ob sql server developer: IG% IG% 100.1375 (B) Hct VFr Bld [...] test results are final unless otherwise noted. [facility] Ordered by Maya Barron MD [...] are final unless otherwise noted. Reported Physicians [facility] Ordered by Maya Barron MD on 09/18/2020 Collected: 09/18/2020 Reported: 09/18/2020 20:10 Reported Physicians See Note None Note: Reported Physicians:Ordering: Yoli NapolesAttending: Charles Silva To: Maya Barron Reviewed by Maya Barron MD on 09/20; All test results are final unless otherwise noted. TROPONIN [facility] Ordered by Maya Barron MD on 09/18/2020 Collected: 09/18/2020 Reported: 09/18/2020 20:10 Troponin I SerPl-mCnc Less Than 0.015 (0.00-0.09) N (Normal) Note: Less than 0.09 NG/ML Negative 0.10 - 0.77 NG/ML High Risk0.78 NG/ML or Greater PositiveThe WHO defined the cutoff (definition for diagnosis of MS)for this method as 0.78 ng/ml.Responsible Observer: Troponin I Troponin I 600.1101 (G) Reviewed by Maya Barron MD on 09/20; All test results are final unless otherwise noted. Reported Physicians [facility] Ordered by Maya Barron MD on 09/18/2020 Collected: 09/18/2020 Reported: 09/18/2020 20:10 Reported Physicians See Note None Note: Reported Physicians:Ordering: Yoli NapolesAttending: Charles Silva To: Maya Barron Reviewed by Maya Barron MD on 09/20; All test results are final unless otherwise noted. Urine culture [facility] Ordered by Cat Gutierrez RPA on 09/11/2020 Collected: 09/11/2020 Reported: 09/12/2020 13:11 Bacteria Ur Cult See Note None Note: NGNo growth.L1NG NOTES See Note None Note: GEORGIANA PICKARD IN OTHER NAME IN MEDICAL RECORD Reviewed by Cat Gutierrez RPA on 09/12; All test results are final unless otherwise noted. Reported Physicians [facility] Ordered by Cat Gutierrez RPA on 09/11/2020 Collected: 09/11/2020 Reported: 09/12/2020 13:11 Reported Physicians See Note None Note: Reported Physicians:Ordering: Cat ConwayAttending: Cat Gutierrez Reviewed by Cat Gutierrez RPA on 09/12; All test results are final unless otherwise noted. UA W/ CULTURE IF ABNORMAL [facility] Ordered by Maya Barron MD on 09/10/2020 Collected: 09/10/2020 Reported: 09/10/2020 17:48 Urobilinogen Ur Ql See Note (0.2-1 EU/dl) None Note: 0.2 EU/dl0.2 EU/[id number] E U/dlResponsible Observer: UROBILINOGEN UROBILINOGEN 300.4500 (C) RBC # Ur Strip NEGATIVE (NEGATIVE) None Note: Responsible Observer: BLOOD BLOOD 300.4652 (C) Prot Ur Ql Strip See Note (NEGATIVE) None Note: [id number] EResponsible Observer: PROTEIN PROTEIN 300.3750 (C) Ketones Ur Ql Strip See Note (NEGATIVE) None Note: [id number] ble Observer: KETONE KETONE 300.3900 (C) Bilirub Ur Ql Strip.auto See Note (NEGATIVE) None Note: [id number] EResponsible Observer: BILIRUBIN BILIRUBIN 300.4550 (C) Glucose Ur Strip.auto-mCnc NEGATIVE (NEGATIVE) None Note: Responsible Observer: GLUCOSE GLUC OSE 300.3850 (C) Appearance Ur See Note (CLEAR) None Note: CLEARCLEARLCLEARResponsible Observ er: APPEARANCE APPEARANCE 300.3400 (A) Color Ur See Note None Note: YELLOWYELLOWLYELLOWResponsible Obs erver: COLOR COLOR 300.3330 (A) Leukocyte esterase Ur Ql Strip See Note (NEGATIVE) None Note: [id number] EResponsible Observer: LEUKOCYTES LEUKOCYTES 300.3576 (C) Nitrite Ur Ql Strip See Note (NEGATIVE) None Note: [id number] EResponsible Observer: NITRITE NITRITE 300.3652 (B) pH [...] are final unless otherwise noted. Reported Physicians [facility] Ordered by Maya Barron MD on 09/10/2020 Collected: 09/10/2020 Reported: 09/10/2020 17:48 Reported Physicians See Note None Note: Reported Physicians:Ordering: Les Vanegas AAttending: Fady Raza To: Maya Barron Reviewed by Maya Barron MD on 09/11; All test results are final unless otherwise noted. BHCG, QUANTITATIVE [facility] Ordered by Maya Barron MD on 09/10/2020 Collected: 09/10/2020 Reported: 09/10/2020 15:48 B-HCG [facility] [address] MilliInternationalUnitsPerMilliLiter_[Arbitrary_Con (0-10) H (High) Note: @Instrument will [...] are final unless otherwise noted. Reported Physicians [facility] Ordered by Maya Barron MD on 09/10/2020 Collected: 09/10/2020 Reported: 09/10/2020 15:49 Reported Physicians See Note None Note: Reported Physicians:Ordering: Les Vanegas: Fady Raza To: Maya Barron Reviewed by Maya Barron MD on 09/11; All test results are final unless otherwise noted. ABO/Rh Type [facility] Ordered by Maya Barron MD on 09/10/2020 Collected: 09/10/2020 Reported: 09/10/2020 15:43 Blood bank studies Yes None Note: Responsible Observer: Prev. Histor y? Previous History? 100.0800 (A) Blood Type See Note None Note: OPO PositiveLResponsible Observer: Blood Type Blood Type 110.0950 (C) Reviewed by Maya Barron MD on 09/11; All test results are final unless otherwise noted. Reported Physicians [facility] Ordered by Maya Barron MD on 09/10/2020 Collected: 09/10/2020 Reported: 09/10/2020 15:43 Reported Physicians See Note None Note: Reported Physicians:Ordering: Les Vanegas: Fady Raaz To: Maya Barron Reviewed by Maya Barron MD on 09/11; All test results are final unless otherwise noted. COVID QUEST [facility] Ordered by Maya Barron MD [...] findings,re- testing should be considered in [facility] authorities. Laboratory test results shouldalways be considered in the context of clinicalobservations and epidemiological data in making a finaldiagnosis and patient management decisions.Please review the "Fact Sheets" and FDA authorizedlabeling available for health care providers andpatients using the following websites:https://www.[employer] .com/home/Covid-19/HCP/NAAT/fact-vhwiv8ktble://www.[employer]/home/Cov id-19/Patients/NAAT/fact-glkcy5Ignv test has been authorized by the FDA under anEmergency Use Authorization (EUA) for use by authorizedlaboratories.Due to the current public health emergency, [facility] is receiving a high volume of samples [...] information about COVID-19 can be foundat the [facility] website:www.[facility].Zouxiu/Covid19.THIS TEST WAS PERFORMED AT:[facility] [address]RROBSACLAUDY ONEILLesponsible Observer: COVID-19 COVID-19 ТАТЬЯНА (SARS-CoV-2) [id number] 914.5065 ([employer]) Reviewed by Maya Barron MD on 08/25; All test results are final unless otherwise noted. Reported Physicians [facility] Ordered by Maya Barron MD on 08/23/2020 Collected: 08/23/2020 Reported: 08/25/2020 03:57 Reported Physicians See Note None Note: Reported Physicians:Ordering: Sana Recinosending: Sammie Ann To: Maya Barron Reviewed by Maya Barron MD on 08/25; All test results are final unless otherwise noted. Rapid Strep [facility] Ordered by Maya Barron MD on 08/15/2020 [address] [place], [address] Collected: 08/15/2020 Reported: 08/15/2020 11:47 tel :[phone] strep antigen normal (negative) N (Normal) Reviewed by Maya Barron MD on 08/15; All test results are final unless otherwise noted. Urinalysis w/out microscopy [facility] Ordered by Maya Barron MD on 08/15/2020 [address] [place], [address] Specimen Source: Urine Collected: 08/15/2020 Reporte d: 08/15/2020 11:03 tel:[phone] bilirubin normal (neg) N (Normal) blood normal [...] unless otherwise noted. Extended hours FLU/COV2 NAAT [facility] Ordered by Maya Barron MD on 08/15/2020 Collected: 08/15/2020 Reported: 08/15/2020 15:55 Extended hours FLU/COV2 NAAT See Note None Note: TNPNo Reportable ResultLTNPNo Repo rtable [id number] NOTES See Note None Note: GEORGIANA PICKARD IN OTHER NAME IN MEDICAL RECORD Reviewed by Maya Barron MD on 08/16; All test results are final unless otherwise noted. Reported Physicians [facility] Ordered by Maya Barron MD on 08/15/2020 Collected: 08/15/2020 Reported: 08/15/2020 15:55 Reported Physicians See Note None Note: Reported Physicians:Ordering: Maya AlvarengaAttending: Maya Barron Reviewed by Maya Barron MD on 08/16; All test results are final unless otherwise noted. Sweta Raquel SARS/FLU [facility] Ordered by Maya Barron MD on 08/15/2020 Collected: 08/15/2020 Reported: 08/15/2020 15:55 Sweta Raquel SARS/FLU See Note None Note: Sweta Raquel is a rapid, automated q ualitative anddifferentiation of Influenza type A,B and OPUZ-ZAH-6KUMS-RT-PCR testNORMAL VALUE IS "NOT DETECTED".Limitations of the sweta raquel Influenza A/B & TOYX-PXC-2pxorh method.Modifications to manufacturers recommendation and proceduresmay alter performance of the test.Negative results do not preclude Influenza A,B or SARS- CCP0jqqimmquaf and should not be used as the [...] out diseases caused by other bacterialor viral pathogens.21539-6NUWR-nrl CoV RNA Resp Ql ТАТЬЯНА+probeLNNSARS SARS-COV-2 NOT [id number]-NJM-7 NOT [id number] RNA Resp Ql ТАТЬЯНА+probeLNNFLUAInfluenza A Not [id number] A Not Fxattghl06256-9LZFBE RNA Resp Ql ТАТЬЯНА+probeLNNINBInfluenza B Not [id number] B Not Detected NOTES See Note None Note: GEORGIANA PICKARD IN OTHER NAME IN MEDICAL RECORD Reviewed by Maya Barron MD on 08/18; All test results are final unless otherwise noted. Throat culture [facility] Ordered by Maya Barron MD on 08/15/2020 Collected: 08/15/2020 Reported: 08/17/2020 06:37 Throat culture results Normal Deisy None Reviewed by Maya Barron MD on 08/18; All test results are final unless otherwise noted. Reported Physicians [facility] Ordered by Maya Barron MD on 08/15/2020 Collected: 08/15/2020 Reported: 08/17/2020 06:37 Reported Physicians See Note None Note: Reported Physicians:Ordering: Maya AlvarengaAttending: Maya Barron Reviewed by Maya Barron MD on 08/18; All test results are final unless otherwise noted. HPVI [facility] Ordered by Cat Gutierrez RPA on 08/09/2020 Collected: 08/09/2020 Reported: 08/15/2020 06:53 Thin Prep Vag See Note None Note: See scanned reportSee scanned repo rtLSee scanned reportResponsible Observer: TP w/HPV if ASC Thinprep w/HPV if ASCUS 805.1454 ([facility]) NOTES See Note None Note: VHV14-63Qidfcffpbo Technique: BRUS H-SPATULABody Site: CERVIX Reviewed by Cat Gutierrez RPA on 08/15; All test results are final unless otherwise noted. Reported Physicians [facility] Ordered by Cat Gutierrez RPA on 08/09/2020 Collected: 08/09/2020 Reported: 08/15/2020 06:53 Reported Physicians See Note None Note: Reported Physicians:Ordering: Atte nding: Rigo Gutierrez To: Maya Barron Reviewed by Cat Gutierrez RPA on 08/15; All test results are final unless otherwise noted. GCAMP [facility] Ordered by Cat Gutierrez RPA on 08/09/2020 Collected: 08/09/2020 Reported: 08/11/2020 06:52 C trach rRNA XXX Ql ТАТЬЯНА+probe See Note (NOT DETECTED) None Note: NOT DETECTEDNOT [id number] 6NOT DETECTEDResponsible Observer: C.Trach RNA Chlamydia trachomatis DNA-ТАТЬНЯА [id number] 913.9900 ([facility]) N gonorrhoea rRNA XXX Ql ТАТЬЯНА+probe See Note (NOT DETECTED) None Note: NOT DETECTEDNOT [id number] 6NOT DETECTEDResponsible Observer: GC RNA Neisseria gonorrhoeae DNA -ТАТЬЯНА [id number] 913.9997 ([employer]) Chlamydia/GC DNA Note SEE NOTE None Note: The analytical performance charact eristics of thisassay, when used to test SurePath(TM) specimens have beendetermined by [facility]. The modifications havenot been cleared or approved by the FDA. This assay hasbeen validated pursuant to the CLIA regulations and isused for clinical purposes.For additional information, please refer tohttps://education.[employer]/faq/HQD164(This link is being provided for information/educational purposes only.)THIS TEST WAS PERFORMED AT:[facility] [address]OSEAS MEANS,CLAUDYesponsible Observer: GC/Chlam Note Chlamydia/GC DNA Note [id number] 913.4469 (A) NOTES See Note None Note: PICKARD:IN OTHER NAME IN MEDICAL RECORD Reviewed by Cat Gutierrez RPA on 08/12; All test results are final unless otherwise noted. Reported Physicians [facility] Ordered by Cat Gutierrez RPA on 08/09/2020 Collected: 08/09/2020 Reported: 08/11/2020 06:52 Reported Physicians See Note None Note: Reported Physicians:Ordering: Atte nding: Cat GutierrezCopyifan To: Maya Barron Reviewed by Cat Gutierrez RPA on 08/12; All test results are final unless otherwise noted. AFFIRM [facility] Ordered by Cat Gutierrez RPA on 08/09/2020 Collected: 08/09/2020 Reported: 08/11/2020 06:52 Dionna species DNA Probe NOT DETECTED (NOT DETECTED) None Note: THIS TEST WAS PERFORMED AT:[facility] [address]CPFETZ MERATI,CLAUDYesponsible Observer: Dionna DNA Dionna species DNA Probe [id number] 913.1292 ([employer]) Gardnerella DNA Probe DETECTED (NOT DETECTED) H (High) Note: Increased levels of G. vaginalis m ay not be significantin the absence of signs and symptoms of bacterialvaginosis.Responsible Observer: Gardnerella DNA Gardnerella DNA Probe [id number] 387.9874 ([employer]) Trichomonas DNA Probe NOT DETECTED (NOT DETECTED) None Note: Responsible Observer: Trichomonas DNA Trichomonas DNA Probe [id number] 029.3892 ([employer]) NOTES See Note None Note: PICKARD:IN OTHER NAME IN MEDICAL RECORD Reviewed on 08/11/2020; All test result s are final unless otherwise noted. Reported Physicians [facility] Ordered by Cat Gutierrez [facility] on 08/09/2020 Collected: 08/09/2020 Reported: 08/11/2020 06:52 Reported Physicians See Note None Note: Reported Physicians:Ordering: Atte ndcristiane: Rigo Gutierrez To: Maya Barron Reviewed on 08/11/2020; All test result s are final unless otherwise noted. MEDMATCH [facility] Ordered by Cat Gutierrez [facility] on 08/09/2020 Collected: 08/09/2020 Reported: 08/13/2020 15:56 MEDMATCH See scanned report None Note: Responsible Observer: MEDMATCH MED MATCH [phone] ([employer]) Reviewed by Cat Gutierrez [facility] on 08/14; All test results are final unless otherwise noted. Reported Physicians [facility] Ordered by Cat Gutierrez [facility] on 08/09/2020 Collected: 08/09/2020 Reported: 08/13/2020 15:56 Reported Physicians See Note None Note: Reported Physicians:Ordering: Atte ndcristiane: Rigo Gutierrez To: Maya Barron Reviewed by Cat Gutierrez [facility] on 08/14; All test results are final unless otherwise noted. ADD ON MICROSCOPIC [facility] Ordered by Cat Gutierrez [facility] on 08/09/2020 Collected: 08/09/2020 Reported: 08/09/2020 12:23 ADD ON MICROSCOPIC See Note (0-5) H (High) Note: NOTES OTHER/NOT INTERPRETED Bacteria UrnS Ql Micro SMALL AMOUNT Bacteria UrnS Ql Micro SMALL AMOUNT Bacteria UrnS Ql Micro L Bacteria UrnS Ql Micro Bacteria UrnS Ql Micro Bacteria UrnS Ql Micro Bacteria UrnS Ql Micro [id number] Bacteria UrnS Ql Micro Bacteria UrnS Ql [...] Ql Micro Mucous Threads UrnS Ql Micro [id number] Mucous Threads UrnS Ql Micro Mucous Threads UrnS Ql Micro MODERATE AMOUNT WBC # Ur Manual 5-8 @08/09/20 1210: UA W/ MICRO added. RFLXG = UMIC.Method of Collection:: Clean CatchResponsible Observer: WBC WBC 300.5000 (A) Reviewed by Cat Gutierrez RPA on 08/12; All test results are final unless otherwise noted. Reported Physicians [facility] Ordered by Cat Gutierrez RPA on 08/09/2020 Collected: 08/09/2020 Reported: 08/10/2020 17:47 Reported Physicians See Note None Note: Reported Physicians:Ordering: Atte oralia: Rigo Gutierrez To: Maya Barron Reviewed by Cat Gutierrez RPA on 08/12; All test results are final unless otherwise noted. URINALYSIS [facility] Ordered by Cat Gutierrez RPA on 08/09/2020 Collected: 08/09/2020 Reported: 08/09/2020 12:23 Urobilinogen Ur Ql See Note (0.2-1 EU/dl) None Note: 1 EU/dl1 EU/[id number] EU/dlRe sponsible Observer: UROBILINOGEN UROBILINOGEN 300.4500 (C) RBC # Ur Strip NEGATIVE (NEGATIVE) None Note: Responsible Observer: BLOOD BLOOD 300.4650 (C) Prot Ur Ql Strip See Note (NEGATIVE) None Note: [id number] ble Observer: PROTEIN PROTEIN 300.3750 (C) Ketones Ur Ql Strip See Note (NEGATIVE) None Note: [id number] ble Observer: KETONE KETONE 300.3900 (C) Bilirub Ur Ql Strip.auto See Note (NEGATIVE) None Note: [id number] EResponsible Observer: BILIRUBIN BILIRUBIN 300.4550 (C) Glucose Ur Strip.auto-mCnc NEGATIVE (NEGATIVE) None Note: Responsible Observer: GLUCOSE GLUC OSE 300.3850 (C) Appearance Ur See Note (CLEAR) None Note: CLEARCLEARLCLEARResponsible Observ er: APPEARANCE APPEARANCE 300.3400 (A) Color Ur See Note None Note: DARK YELLOWDARK YELLOWLDARK YELLOW Responsible Observer: COLOR COLOR 300.3300 (A) Leukocyte esterase Ur Ql Strip See Note (NEGATIVE) None Note: [id number]@DO MICR O!!!!Responsible Observer: LEUKOCYTES LEUKOCYTES 300.3575 (C) Nitrite Ur Ql Strip See Note (NEGATIVE) None Note: [id number] EResponsible Observer: NITRITE NITRITE 300.3650 (B) pH [...] are final unless otherwise noted. Urine culture [facility] Ordered by Cat Gutierrez RPA on 08/09/2020 Collected: 08/09/2020 Reported: 08/10/2020 08:33 Bacteria Ur Cult See Note None Note: NGNo growth.L1NG Reviewed by Cat Gutierrez RPA on 08/14; All test results are final unless otherwise noted. Type and Screen [facility] Ordered by Cat Gutierrez RPA [...] are final unless otherwise noted. Reported Physicians [facility] Ordered by Cat Gutierrez RPA on 08/09/2020 Collected: 08/09/2020 Reported: 08/09/2020 12:39 Reported Physicians See Note None Note: Reported Physicians:Ordering: Cat ConwayAttending: Rigo Gutierrez To: Maya Barron Reviewed by Cat Gutierrez RPA on 08/10; All test results are final unless otherwise noted. Varicella-Zoster IgG Antibody [facility] Ordered by Cat Gutierrez RPA on 08/09/2020 Collected: 08/09/2020 Reported: 08/10/2020 17:47 VZV IgG Ser [facility] 242.10 None Note: Index Interpr etation --------- [...] Antibody Immunity Screen, ACIF.THIS TEST WAS PERFORMED AT:[facility] [address]XZEOZB ME RATI,MDResponsible Observer: VARICELLA IGG Varicella-Zoster IgG Antibody [id number] 499.1758 ([employer]) NOTES See Note None Note: Patient Street Address: [address] [place]: [place] Zip Code: [address]A[place]xnjl Reviewed by Cat Gutierrez RPA on 08/12; All test results are final unless otherwise noted. CBC [facility] Ordered by Cat Gutierrez RPA [...] Auto See Note (0-2) N (Normal) Note: [id number] Ob sql server developer: IG% IG% 100.1375 (B) Hct VFr Bld [...] results are final unless otherwise noted. TSH [facility] Ordered by Cat Gutierrez RPA on 08/09/2020 Collected: 08/09/2020 Reported: 08/09/2020 14:24 TSH SerPl DL<=0.005 mIU/L-aCnc 1.18 MicroInternationalUnitsPerMilliLiter_[Arbitrary_Con (0.35-5. 50) N (Normal) Note: Responsible Observer: TSH TSH 600 .7055 (D) Reviewed by Cat Gutierrez RPA on 08/14; All test results are final unless otherwise noted. Lead (Venous) Wh.Bld [facility] Ordered by Cat Gutierrez RPA on 08/09/2020 Collected: 08/09/2020 Reported: 08/10/2020 17:47 Lead Bld-sCnc <1 (<5) None Note: See Note 1Note 1This test was faith gran[employer] and its analytical performancecharacteristics have been determined by [employer]. It has not been cleared or approved by theA. This assay has been validated pursuant to the CLIAregulations and is used for clinical purposes.THIS TEST WAS PERFORMED AT:[facility] [address]NBUXAXCLAUDY ONEILLesponsible Observer: Lead, WB Lead, Whole Blood [id number] 915.5660 ([facility]) NOTES See Note None Note: Patient Street Address: [facility] [address] City: [place] Code: [address] Reviewed by Cat Gutierrez RPA on 08/14; All test results are final unless otherwise noted. ncPN REF [facility] Ordered by Cat Gutierrez RPA on 08/09/2020 Collected: 08/09/2020 Reported: 08/13/2020 15:26 T pallidum Ab Ser Ql Aggl See Note (Nonreactive) None Note: [id number] onreactiveResponsible Observer: TP-PA Treponema pallidum Ab (TP-PA) [id number] 908.0286 ([facility]) HIV1 RNA SerPl Ql ТАТЬЯНА+probe See Note None Note: TNPNo Reportable ResultLTNPNo Repo rtable ResultLLEP.LIVENTNPResponsible Observer: HIV 1 RNA, QL T HIV 1 RNA, QL TMA [id number] 908.0254 ([facility]) HBV surface Ag SerPl Ql IA See Note (NON-REACTIVE) None Note: JFY-OZRDWOSODJH-[id number] 5NON-REACTIVEResponsible Observer: HBSAG Hepatitis B Surface Antigen 59437339 910.2004 ([facility]) RUBV IgG SerPl IA-aCnc 1.76 None Note: Index Interpretatio n ----- <0.90 Not consistent with immunity 0.90-0.99 Equivocal > or = 1.00 Consistent with immunityThe presence of rubella IgG antibody suggestsimmunization or past or current infection withrubella virus.THIS TEST WAS PERFORMED AT:[facility] [address]DAYYEJ MERATI,MDResponsible Observer: Rubella IgG Ab Rubella IgG Ab [id number] 911.2840 ([facility]) HIV1 Ab SerPlBld Ql IA.rapid See Note None Note: TNPNo Reportable ResultLTNPNo Repo rtable ResultLLEP.LIVENTNPResponsible Observer: HIV 1 AB HIV 1 AB [id number] 908.0250 ([facility]) HBsAg Confirmation See Note None Note: TNPNo Reportable ResultLTNPNo Repo rtable ResultLLEP.LIVENTNPResponsible Observer: HBsAg Confirm HBsAg Confirmation [id number] 910.2006 ([facility]) HIV (1&2) Screen, 4th Gen [...] for this purpose.For additional information please refer tohttp://education.[employer] Interaction/faq/KUW110(This link is being provided for informational/educational purposes only.)The performance of this assay has not been clinicallyvalidated in patients less than 2 years old.THIS TEST WAS PERFORMED AT:[facility] [address]TVGLDECLAUDY ONEILLesponsible Observer: HIV ABS HIV (1&2) Screen, 4th Gen [id number] 908.0228 ([facility]) Reviewed by Cat Gutierrez RPA on 08/14; All test results are final unless otherwise noted. Reported Physicians [facility] Ordered by Cat Gutierrez RPA on 08/09/2020 Collected: 08/09/2020 Reported: 08/13/2020 15:27 Reported Physicians See Note None Note: Reported Physicians:Ordering: Atte oralia: Rigo Gutierrez To: Maya Barron Reviewed by Cat Gutierrez RPA on 08/14; All test results are final unless otherwise noted. HCV RFX ТАТЬЯНА [facility] Ordered by Cat Gutierrez RPA on 08/09/2020 Collected: 08/09/2020 Reported: 08/10/2020 17:47 HCV Ab Ser Ql See Note (NON-REACTIVE) None Note: [id number] 7NON-REACTIVEResponsible Observer: HEP C ANTIBODY Hepatitis C Antibody [id number] 914.8305 ([facility]) HCV RNA Qualitative (ТАТЬЯНА) 0.54 (<1.00) None Note: HCV antibody was non-reactive. The re is no laboratoryevidence of HCV infection.In most cases, no further action is required. However,if recent HCV exposure is suspected, a test for HCV RNA(test code 86506) is suggested.For additional information please refer tohttp://education.[employer] Interaction/faq/DJD21i2(This link is being provided for informational/educational purposes only.)THIS TEST WAS PERFORMED AT:[facility] [address]TERELLGRACE MEANSCLAUDYesponsible Observer: SIG TO C/O SIGNAL TO CUTOFF [id number] 720.5881 ([facility]) NOTES See Note None Note: Patient Street Address: [address] [place] [address] [address] City: [place] [facility] Zip Code: [address]Qfutpmt Reviewed by Cat Gutierrez RPA on 08/12; All test results are final unless otherwise noted. Reported Physicians [facility] Ordered by Cat Gutierrez RPA on 08/09/2020 Collected: 08/09/2020 Reported: 08/10/2020 17:47 Reported Physicians See Note None Note: Reported Physicians:Ordering: Atte nding: Rigo Gutierrez To: Maya Barron Reviewed by Cat Gutierrez RPA on 08/12; All test results are final unless otherwise noted. BHCG, QUANTITATIVE [facility] Ordered by Cat Gutierrez RPA on 08/08/2020 Collected: 08/08/2020 Reported: 08/08/2020 11:53 B-HCG [facility] [address] MilliInternationalUnitsPerMilliLiter_[Arbitrary_Con (0-10) H (High) Note: @Instrument will [...] are final unless otherwise noted. Reported Physicians [facility] Ordered by Cat Gutierrez RPA on 08/08/2020 Collected: 08/08/2020 Reported: 08/08/2020 11:54 Reported Physicians See Note None Note: Reported Physicians:Ordering: Atte memeing: Rigo Gutierrez To: Maya Barron Reviewed by Cat Gutierrez RPA on 08/08; All test results are final unless otherwise noted. CBC W AUTO DIFF [facility] Ordered by Cat Gutierrez RPA [...] Auto See Note (0-2) N (Normal) Note: [id number] Ob sql server developer: IG% IG% 100.1375 (B) Hct VFr Bld [...] Observer: NRBC% NRBC% 100.1360 (B) Reviewed by aCt Gutierrez RPA on 08/01; All test results are final unless otherwise noted. [facility] Ordered by Cat Gutierrez RPA [...] are final unless otherwise noted. Reported Physicians [facility] Ordered by Cat Gutierrez RPA on 08/01/2020 Collected: 08/01/2020 Reported: 08/01/2020 02:26 Reported Physicians See Note None Note: Reported Physicians:Ordering: Aj Ferreiraending: Jos Rivas To: Maya Barron Reviewed by Cat Gutierrez RPA on 08/01; All test results are final unless otherwise noted. Type and Screen [facility] Ordered by Cat Gutierrez RPA [...] are final unless otherwise noted. Reported Physicians [facility] Ordered by Cat Gutierrez RPA on 08/01/2020 Collected: 08/01/2020 Reported: 08/01/2020 06:03 Reported Physicians See Note None Note: Reported Physicians:Ordering: Aj Ferreiraending: Jos Rivas To: Maya Barron Reviewed by Cat Gutierrez RPA on 08/01; All test results are final unless otherwise noted. BHCG, QUANTITATIVE [facility] Ordered by Cat Gutierrez RPA on 08/01/2020 Collected: 08/01/2020 Reported: 08/01/2020 02:26 B-HCG [facility] [address] MilliInternationalUnitsPerMilliLiter_[Arbitrary_Con (0-10) H (High) Note: @Instrument will [...] are final unless otherwise noted. Reported Physicians [facility] Ordered by Cat Gutierrez RPA on 08/01/2020 Collected: 08/01/2020 Reported: 08/01/2020 02:26 Reported Physicians See Note None Note: Reported Physicians:Ordering: Aj Ferreiraending: Jos Rivas To: Maya Barron Reviewed by Cat Gutierrez RPA on 08/01; All test results are final unless otherwise noted. ADD ON MICROSCOPIC [facility] Ordered by Cat Gutierrez RPA on 08/01/2020 Collected: 08/01/2020 Reported: 08/01/2020 01:01 ADD ON MICROSCOPIC See Note (0-5) None Note: NOTES OTHER/NOT INTERPRETED Bacteria UrnS Ql Micro MODERATE AMOUNT Bacteria UrnS Ql Micro MODERATE AMOUNT Bacteria UrnS Ql Micro L Bacteria UrnS Ql Micro Bacteria UrnS Ql Micro Bacteria UrnS Ql Micro Bacteria UrnS Ql Micro [id number] Bacteria UrnS Ql Micro Bacteria UrnS Ql [...] are final unless otherwise noted. Reported Physicians [facility] Ordered by Cat Gutierrez RPA on 08/01/2020 Collected: 08/01/2020 Reported: 08/01/2020 01:01 Reported Physicians See Note None Note: Reported Physicians:Ordering: Aj Ferreiraending: Jos Rivas To: Maya Barron Reviewed by Cat Gutierrez RPA on 08/01; All test results are final unless otherwise noted. UA W/ CULTURE IF ABNORMAL [facility] Ordered by Cat Gutierrez RPA on 08/01/2020 Collected: 08/01/2020 Reported: 08/01/2020 01:01 Urobilinogen Ur Ql See Note (0.2-1 EU/dl) None Note: 0.2 EU/dl0.2 EU/[id number] E U/dlResponsible Observer: UROBILINOGEN UROBILINOGEN 300.4500 (C) RBC # Ur Strip SMALL (NEGATIVE) None Note: @DO MICRO!!!!Responsible Observer: BLOOD BLOOD 300.4652 (C) Prot Ur Ql Strip See Note (NEGATIVE) None Note: [id number] EResponsible Observer: PROTEIN PROTEIN 300.3750 (C) Ketones Ur Ql Strip See Note (NEGATIVE) None Note: 15 mg/dL15 mg/[id number] mg/d LResponsible Observer: KETONE KETONE 300.3900 (C) Bilirub Ur Ql Strip.auto See Note (NEGATIVE) None Note: [id number] EResponsible Observer: BILIRUBIN BILIRUBIN 300.4550 (C) Glucose Ur Strip.auto-mCnc NEGATIVE (NEGATIVE) None Note: Responsible Observer: GLUCOSE GLUC OSE 300.3850 (C) Appearance Ur See Note (CLEAR) None Note: CLEARCLEARLCLEARResponsible Observ er: APPEARANCE APPEARANCE 300.3400 (A) Color Ur See Note None Note: YELLOWYELLOWLYELLOWResponsible Obs erver: COLOR COLOR 300.3330 (A) Leukocyte esterase Ur Ql Strip See Note (NEGATIVE) None Note: [id number]@DO MICR O!!!!A Culture has been added to this specimen per established criteriaResponsible Observer: LEUKOCYTES LEUKOCYTES 300.3576 (C) Nitrite Ur Ql Strip See Note (NEGATIVE) None Note: [id number] EResponsible Observer: NITRITE NITRITE 300.3652 (B) pH [...] are final unless otherwise noted. Urine culture [facility] Ordered by Cat Gutierrez RPA on 08/01/2020 Collected: 08/01/2020 Reported: 08/02/2020 07:41 Urine culture result See Note None Note: Greater than 100,000 CFU/MLLactoba cilli no senst done NOTES See Note None Note: @08/01/20 0101: Urine culture adde d. RFLXG = CULT.ADD. Reviewed by Cat Gutierrez RPA on 08/02; All test results are final unless otherwise noted. Reported Physicians [facility] Ordered by Cat Gutierrez RPA on 08/01/2020 Collected: 08/01/2020 Reported: 08/02/2020 07:41 Reported Physicians See Note None Note: Reported Physicians:Ordering: Aj Ferreiraending: Jos Rivas To: Maya Barron Reviewed by Cat Gutierrez RPA on 08/02; All test results are final unless otherwise noted. BHCG, QUANTITATIVE [facility] Ordered by Cat Gutierrez RPA on 07/31/2020 Collected: 07/31/2020 Reported: 07/31/2020 16:53 B-HCG SerPl-aCnc 11985 MilliInternationalUnitsPerMilliLiter_[Arbitrary_Con (0-10) H (High) Note: @Instrument will [...] None Note: OTHER NAME IN SYSTEM IS NEERAJ Reviewed by Cat Gutierrez RPA on 08/01; All test results are final unless otherwise noted. Reported Physicians [facility] Ordered by Cat Gutierrez RPA on 07/31/2020 Collected: 07/31/2020 Reported: 07/31/2020 16:53 Reported Physicians See Note None Note: Reported Physicians:Ordering: Atte nding: Cat Gutierrez Reviewed by Cat Gutierrez RPA on 08/01; All test results are final unless otherwise noted. UA W/ CULTURE IF ABNORMAL [facility] Ordered by Cat Gutierrez RPA on 07/27/2020 Collected: 07/27/2020 Reported: 07/27/2020 21:36 Urobilinogen Ur Ql See Note (0.2-1 EU/dl) None Note: 0.2 EU/dl0.2 EU/[id number] E U/dlResponsible Observer: UROBILINOGEN UROBILINOGEN 300.4500 (C) RBC # Ur Strip NEGATIVE (NEGATIVE) None Note: Responsible Observer: BLOOD BLOOD 300.4652 (C) Prot Ur Ql Strip See Note (NEGATIVE) None Note: [id number] EResponsible Observer: PROTEIN PROTEIN 300.3750 (C) Ketones Ur Ql Strip See Note (NEGATIVE) None Note: [id number] EResponsible Observer: KETONE KETONE 300.3900 (C) Bilirub Ur Ql Strip.auto See Note (NEGATIVE) None Note: [id number] EResponsible Observer: BILIRUBIN BILIRUBIN 300.4550 (C) Glucose Ur Strip.auto-mCnc NEGATIVE (NEGATIVE) None Note: Responsible Observer: GLUCOSE GLUC OSE 300.3850 (C) Appearance Ur See Note (CLEAR) None Note: CLEARCLEARLCLEARResponsible Observ er: APPEARANCE APPEARANCE 300.3400 (A) Color Ur See Note None Note: YELLOWYELLOWLYELLOWResponsible Obs erver: COLOR COLOR 300.3330 (A) Leukocyte esterase Ur Ql Strip See Note (NEGATIVE) None Note: [id number]@DO MICR O!!!!A Culture has been added to this specimen per established criteriaResponsible Observer: LEUKOCYTES LEUKOCYTES 300.3576 (C) Nitrite Ur Ql Strip See Note (NEGATIVE) None Note: [id number] EResponsible Observer: NITRITE NITRITE 300.3652 (B) pH [...] Reason for ordering culture: Abnor mal findings UA@07/27/208: UA W/ MICRO added. RFLXG = UMIC CIF.Method of Collection:: Voided Reviewed by Cat Gutierrez [facility] on 07/31; All test results are final unless otherwise noted. Urine culture [facility] Ordered by Cat Brenda [facility] on 07/27/2020 Collected: 07/27/2020 Reported: 07/29/2020 07:36 Urine culture result 50,000 CFU/ML Lactobacilli no senst done None NOTES See Note None Note: @07/27/202136: Urine culture flavia sawyer RFLXG = CULT.ADD. Reviewed by Cat Gutierrez [facility] on 07/31; All test results are final unless otherwise noted. Reported Physicians [facility] Ordered by Cat Brenda [facility] on 07/27/2020 Collected: 07/27/2020 Reported: 07/29/2020 07:37 Reported Physicians See Note None Note: Reported Physicians:Ordering: Daquan BustamanteAttending: Daquan GoodCopyifan To: Maya Barron Reviewed by Cat Gutierrez [facility] on 01/18 /2021; All test results are final unless otherwise noted. ADD ON MICROSCOPIC [facility] Ordered by Cat Gutierrez RPA on 07/27/2020 Collected: 07/27/2020 Reported: 07/27/2020 21:36 ADD ON MICROSCOPIC See Note (0-5) None Note: NOTES OTHER/NOT INTERPRETED Bacteria UrnS Ql Micro SMALL AMOUNT Bacteria UrnS Ql Micro SMALL AMOUNT Bacteria UrnS Ql Micro L Bacteria UrnS Ql Micro Bacteria UrnS Ql Micro Bacteria UrnS Ql Micro Bacteria UrnS Ql Micro [id number] Bacteria UrnS Ql Micro Bacteria UrnS Ql Micro SMALL AMOUNT Cells UrnS Micro MODERATE Cells UrnS Micro MODERATE Cells UrnS Micro MODERATE Cells UrnS Micro L Cells UrnS Micro Cells UrnS Micro Cells UrnS Micro Cells UrnS Micro Cells UrnS Micro WBC # Ur Manual OCCASIONAL Reason for ordering culture: Abnormal findings UA@07/27/202117: UA W/ MICRO added. RFLXG = [facility] CI.Method of Collection:: VoidedResponsible Observer: WBC WBC 300.5005 (A) Reviewed by Cat Gutierrez RPA on 07/28; All test results are final unless otherwise noted. Reported Physicians [facility] Ordered by Cat Gutierrez RPA on 07/27/2020 Collected: 07/27/2020 Reported: 07/27/2020 21:37 Reported Physicians See Note None Note: Reported Physicians:Ordering: Daquan BustamanteAttending: Daquan GoodCopyifan To: Maya Barron Reviewed by Cat Gutierrez RPA on 07/28; All test results are final unless otherwise noted. CMP [facility] Ordered by Cat Gutierrez RPA [...] are final unless otherwise noted. Reported Physicians [facility] Ordered by Cat Gutierrez RPA on 07/27/2020 Collected: 07/27/2020 Reported: 07/27/2020 20:37 Reported Physicians See Note None Note: Reported Physicians:Ordering: Daquan BustamanteAttending: Ariella Good To: Maya Barron Reviewed by Cat Gutierrez RPA on 07/28; All test results are final unless otherwise noted. Type and Screen [facility] Ordered by Cat Gutierrez RPA [...] (IF Yes, give date): N Reviewed by Cta Gutierrez RPA on 07/28; All test results are final unless otherwise noted. Reported Physicians [facility] Ordered by Cat Gutierrez RPA on 07/27/2020 Collected: 07/27/2020 Reported: 07/27/2020 20:48 Reported Physicians See Note None Note: Reported Physicians:Ordering: Daquan BustamanteAttending: Daquan GoodCopyifan To: Maya Barron Reviewed by Cat Gutierrez RPA on 07/28; All test results are final unless otherwise noted. CBC W AUTO DIFF [facility] Ordered by Cat Gutierrez RPA [...] Auto See Note (0-2) N (Normal) Note: 0.20.9P20045127999.2Responsible Ob sql server developer: IG% IG% 100.1375 (B) Hct VFr Bld [...] are final unless otherwise noted. Reported Physicians [facility] Ordered by Cat Gutierrez RPA on 07/27/2020 Collected: 07/27/2020 Reported: 07/27/2020 20:11 Reported Physicians See Note None Note: Reported Physicians:Ordering: Daquan BustamanteAttending: Ariella Good To: Maya Barron Reviewed by Cat Gutierrez RPA on 07/28; All test results are final unless otherwise noted. BHCG, QUANTITATIVE [facility] Ordered by Cat Gutierrez RPA on 07/27/2020 Collected: 07/27/2020 Reported: 07/27/2020 22:08 B-HCG [facility] 6210 MilliInternationalUnitsPerMilliLiter_[Arbitrary_Con (0-10) H (High) [...] are final unless otherwise noted. Reported Physicians [facility] Ordered by Cat Gutierrez RPA on 07/27/2020 Collected: 07/27/2020 Reported: 07/27/2020 22:08 Reported Physicians See Note None Note: Reported Physicians:Ordering: Daquan BsutamanteAttending: Ariella Good To: Maya Barron Reviewed by Cat Gutierrez RPA on 07/28; All test results are final unless otherwise noted. BHCG, QUANTITATIVE [facility] Ordered by Maya Barron MD on 07/26/2020 Collected: 07/26/2020 Reported: 07/26/2020 16:48 B-HCG SerPl-aCn 4155 MilliInternationalUnitsPerMilliLiter_[Arbitrary_Con (0-10) H (High) Note: @Instrument [...] None Note: OTHER NAME IN SYSTEM IS NEERAJ Reviewed by Maya Barron MD on 07/27; All test results are final unless otherwise noted. Reported Physicians [facility] Ordered by Maya Barron MD on 07/26/2020 Collected: 07/26/2020 Reported: 07/26/2020 16:48 Reported Physicians See Note None Note: Reported Physicians:Ordering: Maya AlvarengaAttending: Maya Barron Reviewed by Maya Barron MD on 07/27; All test results are final unless otherwise noted. Sweta Raquel SARS/FLU [facility] Ordered by Bandar Cleveland PA-C on 07/25/2020 Collected: 07/25/2020 Reported: 07/25/2020 18:47 Sweta Raquel SARS/FLU See Note None Note: Sweta Raquel is a rapid, automated q ualitative anddifferentiation of Influenza type A,B and APCJ-VLM-6ZRRJ-RT-PCR testNORMAL VALUE IS "NOT DETECTED".Limitations of the sweta raquel Influenza A/B & RJQK-OZH-1zctxk method.Modifications to manufacturers recommendation and proceduresmay alter performance of the test.Negative results do not preclude Influenza A,B or SARS- ZFE8ripdezgukf and should not be used as the [...] out diseases caused by other bacterialor viral pathogens.27808-7AFVJ-WfT-1 RNA Resp Ql АТТЬЯНА+probeLNNOSNo O rganisms [id number] Organisms Detected Reviewed by Bandar Cleveland PA-C on 1; All test results are final unless otherwise noted. Reported Physicians [facility] Ordered by Bandar Cleveland PA-C on 07/25/2020 Collected: 07/25/2020 Reported: 07/25/2020 18:47 Reported Physicians See Note None Note: Reported Physicians:Ordering: Janice Wilsonending: Kami Cleveland To: Health, Public Reviewed by Bandar Cleveland PA-C on 1; All test results are final unless otherwise noted. Extended hours FLU/COV2 NAAT [facility] Ordered by Bandar Cleveland PA-C on 07/25/2020 Collected: 07/25/2020 Reported: 07/25/2020 18:47 Extended hours FLU/COV2 NAAT See Note None Note: TNPNo Reportable ResultLTNPNo Repo rtable BysimbP7ZWS Reviewed by Bandar Cleveland PA-C on 1; All test results are final unless otherwise noted. Reported Physicians [facility] Ordered by Bandar Cleveland PA-C on 07/25/2020 Collected: 07/25/2020 Reported: 07/25/2020 18:47 Reported Physicians See Note None Note: Reported Physicians:Ordering: Janice Wilsonending: Kami Cleveland To: Health, Public Reviewed by Bandar Cleveland PA-C on ; All test results are final unless otherwise noted. CBC W AUTO DIFF [facility] Ordered by Maya Barron MD [...] Auto See Note (0-2) N (Normal) Note: [id number] Ob sql server developer: IG% IG% 100.1375 (B) Hct VFr Bld [...] test results are final unless otherwise noted. [facility] Ordered by Maya Barron MD [...] are final unless otherwise noted. Reported Physicians [facility] Ordered by Maya Barron MD on 07/22/2020 Collected: 07/22/2020 Reported: 07/22/2020 02:00 Reported Physicians See Note None Note: Reported Physicians:Ordering: Dominic Landaverdeending: Alon Douglas To: Maya Barron Reviewed by Maya Barron MD on 07/24; All test results are final unless otherwise noted. Sweta Raquel SARS/FLU [facility] Ordered by Maya Barron MD on 07/22/2020 Collected: 07/22/2020 Reported: 07/22/2020 01:29 Sweta Raquel SARS/FLU See Note None Note: Sweta Raquel is a rapid, automated q ualitative anddifferentiation of Influenza type A,B and GXMW-ZUZ-6DPHZ-RT-PCR testNORMAL VALUE IS "NOT DETECTED".Limitations of the sweta raquel Influenza A/B & MHVR-ABG-5uckbo method.Modifications to manufacturers recommendation and proceduresmay alter performance of the test.Negative results do not preclude Influenza A,B or SARS- MLL7jccxlfbqos and should not be used as the [...] out diseases caused by other bacterialor viral pathogens.[id number]-3 RNA Resp Ql ТАТЬЯНА+probeLNNOSNo O rganisms [id number] Organisms Detected Reviewed by Maya Barron MD on 07/24; All test results are final unless otherwise noted. Reported Physicians [facility] Ordered by Maya Barron MD on 07/22/2020 Collected: 07/22/2020 Reported: 07/22/2020 01:29 Reported Physicians See Note None Note: Reported Physicians:Ordering: Hong LandaverdeAttending: Hong DouglasCopyifan To: Maya Barron Reviewed by Maya Barron MD on 07/24; All test results are final unless otherwise noted. UA W/ CULTURE IF ABNORMAL [facility] Ordered by Maya Barron MD on 07/22/2020 Collected: 07/22/2020 Reported: 07/22/2020 01:10 Urobilinogen Ur Ql See Note (0.2-1 EU/dl) None Note: 0.2 EU/dl0.2 EU/[id number] E U/dlResponsible Observer: UROBILINOGEN UROBILINOGEN 300.4500 (C) RBC # Ur Strip NEGATIVE (NEGATIVE) None Note: Responsible Observer: BLOOD BLOOD 300.4652 (C) Prot Ur Ql Strip See Note (NEGATIVE) None Note: [id number] EResponsible Observer: PROTEIN PROTEIN 300.3750 (C) Ketones Ur Ql Strip See Note (NEGATIVE) None Note: [id number] EResponsible Observer: KETONE KETONE 300.3900 (C) Bilirub Ur Ql Strip.auto See Note (NEGATIVE) None Note: [id number] EResponsible Observer: BILIRUBIN BILIRUBIN 300.4550 (C) Glucose Ur Strip.auto-mCnc NEGATIVE (NEGATIVE) None Note: Responsible Observer: GLUCOSE GLUC OSE 300.3850 (C) Appearance Ur See Note (CLEAR) None Note: CLEARCLEARLCLEARResponsible Observ er: APPEARANCE APPEARANCE 300.3400 (A) Color Ur See Note None Note: YELLOWYELLOWLYELLOWResponsible Obs erver: COLOR COLOR 300.3330 (A) Leukocyte esterase Ur Ql Strip See Note (NEGATIVE) None Note: [id number] EResponsible Observer: LEUKOCYTES LEUKOCYTES 300.3576 (C) Nitrite Ur Ql Strip See Note (NEGATIVE) None Note: [id number] EResponsible Observer: NITRITE NITRITE 300.3652 (B) pH [...] are final unless otherwise noted. Reported Physicians [facility] Ordered by Maya Barron MD on 07/22/2020 Collected: 07/22/2020 Reported: 07/22/2020 01:11 Reported Physicians See Note None Note: Reported Physicians:Ordering: Hong LandaverdeAttending: Alon Douglas To: Maya Barron Reviewed by Maya Barron MD on 07/24; All test results are final unless otherwise noted. Extended hours FLU/COV2 NAAT [facility] Ordered by Maya Barron MD on 07/22/2020 Collected: 07/22/2020 Reported: 07/22/2020 01:29 Extended hours FLU/COV2 NAAT See Note None Note: TNPNo Reportable ResultLTNPNo Repo rtable VkuehzA1TTM Reviewed by Maya Barron MD on 07/24; All test results are final unless otherwise noted. Reported Physicians [facility] Ordered by Maya Barron MD on 07/22/2020 Collected: 07/22/2020 Reported: 07/22/2020 01:29 Reported Physicians See Note None Note: Reported Physicians:Ordering: Hong LandaverdeAttending: Alno Douglas To: Maya Barron Reviewed by Maya Barron MD on 07/24; All test results are final unless otherwise noted. Urine culture [facility] Ordered by Maya Barron MD on 07/19/2020 Collected: 07/19/2020 Reported: 07/21/2020 07:48 Bacteria Ur Cult See Note None Note: NGNo growth.L1NG Reviewed by Maya Barron MD on 07/21; All test results are final unless otherwise noted. Reported Physicians [facility] Ordered by Maya Barron MD on 07/19/2020 Collected: 07/19/2020 Reported: 07/21/2020 07:49 Reported Physicians See Note None Note: Reported Physicians:Ordering: Maya AlvarengaAttending: Maya Barron Reviewed by Maya Barron MD on 07/21; All test results are final unless otherwise noted. BHCG, QUANTITATIVE [facility] Ordered by Maya Barron MD [...] are final unless otherwise noted. Reported Physicians [facility] Ordered by Maya Barron MD on 07/17/2020 Collected: 07/17/2020 Reported: 07/17/2020 12:40 Reported Physicians See Note None Note: Reported Physicians:Ordering: Maya AlvarengaAttending: Maya Barron Reviewed by Maya Barron MD on 07/17; All test results are final unless otherwise noted. CUEVAS COVID-19 SCHOOL [facility] Ordered by Maya Barron MD [...] molecular test, if the virus mutates in [facility], Covid-19 may not be detected or may bedetected less predictably.ID NOW COVID-19 is intended for testing a swab directlywithout elution in viral transport media as dilution willresult in decreased detection of low positive samples thatare near the limit of detection of the test.SWAB SAMPLES ELUTED IN VTM ARE NOT APPROPRIATE FOR USE INTHIS TEST.NOSNo Organisms [id number] Organisms Detected Reviewed by Maya Barron MD on 05/31; All test results are final unless otherwise noted. Reported Physicians [facility] Ordered by Maya Barron MD on 05/31/2020 Collected: 05/31/2020 Reported: 05/31/2020 07:08 Reported Physicians See Note None Note: Reported Physicians:Ordering: Johnny HernándezAttending: Suzanne Cazares To: Maya Barron Reviewed by Maya Barron MD on 05/31; All test results are final unless otherwise noted. BHCG, QUANTITATIVE [facility] Ordered by Maya Barron MD on 05/26/2020 Collected: 05/26/2020 Reported: 05/26/2020 14:49 B-HCG [facility] [address] MilliInternationalUnitsPerMilliLiter_[Arbitrary_Con (0-10) H (High) Note: @Instrument will [...] are final unless otherwise noted. Reported Physicians [facility] Ordered by Maya Barron MD on 05/26/2020 Collected: 05/26/2020 Reported: 05/26/2020 14:50 Reported Physicians See Note None Note: Reported Physicians:Ordering: Maya AlvarengaAttending: Maya Barron Reviewed by Maya Barron MD on 05/26; All test results are final unless otherwise noted. URINALYSIS [facility] Ordered by Maya Barron MD on 05/23/2020 Collected: 05/23/2020 Reported: 05/23/2020 17:19 Urobilinogen Ur Ql See Note (0.2-1 EU/dl) None Note: 0.2 EU/dl0.2 EU/[id number] E U/dlResponsible Observer: UROBILINOGEN UROBILINOGEN 300.4500 (C) RBC # Ur Strip NEGATIVE (NEGATIVE) None Note: Responsible Observer: BLOOD BLOOD 300.4650 (C) Prot Ur Ql Strip See Note (NEGATIVE) None Note: [id number] EResponsible Observer: PROTEIN PROTEIN 300.3750 (C) Ketones Ur Ql Strip See Note (NEGATIVE) None Note: [id number] EResponsible Observer: KETONE KETONE 300.3900 (C) Bilirub Ur Ql Strip.auto See Note (NEGATIVE) None Note: [id number] EResponsible Observer: BILIRUBIN BILIRUBIN 300.4550 (C) Glucose Ur Strip.auto-mCnc NEGATIVE (NEGATIVE) None Note: Responsible Observer: GLUCOSE GLUC OSE 300.3850 (C) Appearance Ur See Note (CLEAR) None Note: CLEARCLEARLCLEARResponsible Observ er: APPEARANCE APPEARANCE 300.3400 (A) Color Ur See Note None Note: YELLOWYELLOWLYELLOWResponsible Obs erver: COLOR COLOR 300.3300 (A) Leukocyte esterase Ur Ql Strip See Note (NEGATIVE) None Note: [id number] EResponsible Observer: LEUKOCYTES LEUKOCYTES 300.3575 (C) Nitrite Ur Ql Strip See Note (NEGATIVE) None Note: [id number] EResponsible Observer: NITRITE NITRITE 300.3650 (B) pH [...] are final unless otherwise noted. Urine culture [facility] Ordered by Maya Barron MD on 05/23/2020 Collected: 05/23/2020 Reported: 05/24/2020 09:24 Bacteria Ur Cult See Note None Note: NGNo growth.L1NG Reviewed by Maya Barron MD on 05/29; All test results are final unless otherwise noted. MEDMATCH [facility] Ordered by Maya Barron MD on 05/23/2020 Collected: 05/23/2020 Reported: 05/26/2020 17:09 MEDMATCH 1.000 (> or = 1.003) None Note: Responsible Observer: MEDMATCH MED MATCH 910.25085 ([facility]) Reviewed by Maya Barron MD on 05/29; All test results are final unless otherwise noted. Reported Physicians [facility] Ordered by Maya Barron MD on 05/23/2020 Collected: 05/23/2020 Reported: 05/26/2020 17:09 Reported Physicians See Note None Note: Reported Physicians:Ordering: Craa Alvarengaending: Maya Barron Reviewed by Maya Barron MD on 05/29; All test results are final unless otherwise noted. Varicella-Zoster IgG Antibody [facility] Ordered by Maya Barron MD [...] Antibody Immunity Screen, ACIF.THIS TEST WAS PERFORMED AT:[facility] [id number] ME RATI,MDResponsible Observer: VARICELLA IGG Varicella-Zoster IgG Antibody [id number] 859.7292 ([employer]) NOTES See Note None Note: Patient Street Address: [facility] [address] [place] [address] City: [facility] State: [facility] Zip Code: [address] Reviewed by Maya Barron MD on 05/26; All test results are final unless otherwise noted. Reported Physicians [facility] Ordered by Maya Barron MD on 05/23/2020 Collected: 05/23/2020 Reported: 05/25/2020 17:11 Reported Physicians See Note None Note: Reported Physicians:Ordering: Maya AlvarengaAttending: Maya Barron Reviewed by Maya Barron MD on 05/26; All test results are final unless otherwise noted. CBC [facility] Ordered by Maya Barron MD [...] Auto See Note (0-2) N (Normal) Note: [id number] Ob sql server developer: IG% IG% 100.1375 (B) Hct VFr Bld [...] results are final unless otherwise noted. TSH [facility] Ordered by Maya Barron MD on 05/23/2020 Collected: 05/23/2020 Reported: 05/23/2020 18:38 TSH SerPl DL<=0.005 mIU/L-aCnc 1.87 MicroInternationalUnitsPerMilliLiter_[Arbitrary_Con (0.35-5. 50) N (Normal) Note: Responsible Observer: TSH TSH 600 .7055 (D) Reviewed by Maya Barron MD on 05/29; All test results are final unless otherwise noted. Lead (Venous) Wh.Bld [facility] Ordered by Maya Barron MD on 05/23/2020 Collected: 05/23/2020 Reported: 05/25/2020 17:11 Lead Bld-sCnc <1 (<5) None Note: See Note 1Note 1This test was [facility] [employer] and its analytical performancecharacteristics have been determined by [employer]. It has not been cleared or approved by theA. This assay has been validated pursuant to the CLIAregulations and is used for clinical purposes.THIS TEST WAS PERFORMED AT:[facility] [id number] MERATI,MDResponsible Observer: Lead, WB Lead, Whole Blood [id number] 911.2190 ([facility]) NOTES See Note None Note: Patient Street Address: [facility] [address] [facility] Zip Code: [address] Reviewed by Maya Barron MD on 05/29; All test results are final unless otherwise noted. ncPN REF [facility] Ordered by Maya Barron MD on 05/23/2020 Collected: 05/23/2020 Reported: 05/27/2020 20:54 T pallidum Ab Ser Ql Aggl See Note (Nonreactive) None Note: [id number] onreactiveResponsible Observer: TP-PA Treponema pallidum Ab (TP-PA) [id number] 908.0286 ([facility]) HIV1 RNA SerPl Ql ТАТЬЯНА+probe See Note None Note: TNPNo Reportable ResultLTNPNo Repo rtable ResultLLEP.LIVENTNPResponsible Observer: HIV 1 RNA, QL T HIV 1 RNA, QL TMA [id number] 908.0254 ([facility]) HBV surface Ag SerPl Ql IA See Note (NON-REACTIVE) None Note: [id number] 0NON-REACTIVEResponsible Observer: HBSAG Hepatitis B Surface Antigen [id number] 910.2004 ([facility]) RUBV IgG SerPl IA-aCnc 1.80 None Note: Index Interpretatio n ----- <0.90 Not consistent with Immunity 0.90-0.99 Equivocal > or = 1.00 Consistent with ImmunityThe presence of rubella IgG antibody suggestsimmunization or past or current infection withrubella virus.THIS TEST WAS PERFORMED AT:[facility] [address]LKGZXU MERATI,MDResponsible Observer: Rubella IgG Ab Rubella IgG Ab [id number] 911.2840 ([facility]) HIV1 Ab SerPlBld Ql IA.rapid See Note None Note: TNPNo Reportable ResultLTNPNo Repo rtable ResultLLEP.LIVENTNPResponsible Observer: HIV 1 AB HIV 1 AB [id number] 908.0250 ([facility]) HBsAg Confirmation See Note None Note: TNPNo Reportable ResultLTNPNo Repo rtable ResultLLEP.LIVENTNPResponsible Observer: HBsAg Confirm HBsAg Confirmation [id number] 910.2006 ([facility]) HIV (1&2) Screen, 4th Gen [...] for this purpose.For additional information please refer tohttp://education.[employer]/faq/SNH685(This link is being provided for informational/educational purposes only.)The performance of this assay has not been clinicallyvalidated in patients less than 2 years old.Responsible Observer: HIV ABS HIV (1&2) Screen, 4th Gen [id number] 908.1470 ([facility]) Reviewed by Maya Barron MD on 05/29; All test results are final unless otherwise noted. Reported Physicians [facility] Ordered by Maya Barron MD on 05/23/2020 Collected: 05/23/2020 Reported: 05/27/2020 20:54 Reported Physicians See Note None Note: Reported Physicians:Ordering: Maya AlvarengaAttending: Maya Barron Reviewed by Maya Barron MD on 05/29; All test results are final unless otherwise noted. HCV RFX ТАТЬЯНА [facility] Ordered by Maya Barron MD on 05/23/2020 Collected: 05/23/2020 Reported: 05/25/2020 17:11 HCV Ab Ser Ql See Note (NON-REACTIVE) None Note: [id number]-REACTIVEResponsible Observer: HEP C ANTIBODY Hepatitis C Antibody [id number] 914.8305 ([employer]) HCV RNA Qualitative (ТАТЬЯНА) 0.59 (<1.00) None Note: HCV antibody was non-reactive. The re is no laboratoryevidence of HCV infection.In most cases, no further action is required. However,if recent HCV exposure is suspected, a test for HCV RNA(test code 18118) is suggested.For additional information please refer tohttp://education.[employer]/faq/UFA80j9(This link is being provided for informational/educational purposes only.)THIS TEST WAS PERFORMED AT:[facility] [address]OSEAS MEANS,MDResponsible Observer: SIG TO C/O SIGNAL TO CUTOFF [id number] 914.8335 ([employer]) NOTES See Note None Note: Patient Street Address[address] City: [place]: [address] Reviewed by Maya Barron MD on 05/26; All test results are final unless otherwise noted. Reported Physicians [facility] Ordered by Maya Barron MD on 05/23/2020 Collected: 05/23/2020 Reported: 05/25/2020 17:11 Reported Physicians See Note None Note: Reported Physicians:Ordering: Maya AlvarengaAttending: Maya Barron Reviewed by Maya Barron MD on 05/26; All test results are final unless otherwise noted. Type and Screen [facility] Ordered by Maya Barron MD [...] are final unless otherwise noted. Reported Physicians [facility] Ordered by Maya Barron MD on 05/23/2020 Collected: 05/23/2020 Reported: 05/23/2020 19:32 Reported Physicians See Note None Note: Reported Physicians:Ordering: Maya AlvarengaAttending: Maya Barron Reviewed by Maya Barron MD on 05/24; All test results are final unless otherwise noted. PROGESTERONE [facility] Ordered by Maya Barron MD [...] are final unless otherwise noted. Reported Physicians [facility] Ordered by Maya Barron MD on 04/27/2020 Collected: 04/27/2020 Reported: 04/27/2020 15:58 Reported Physicians See Note None Note: Reported Physicians:Ordering: Johnny HernándezAttending: Jos Castellanos To: Rubén Barron To: Cristino Castellanos Reviewed by Maya Barron MD on 04/30; All test results are final unless otherwise noted. BHCG, QUANTITATIVE [facility] Ordered by Maya Barron MD on 04/27/2020 Collected: 04/27/2020 Reported: 04/27/2020 14:40 B-HCG [facility] 235[address] MilliInternationalUnitsPerMilliLiter_[Arbitrary_Con (0-10) H (High) Note: @Instrument [...] are final unless otherwise noted. Reported Physicians [facility] Ordered by Maya Barron MD on 04/27/2020 Collected: 04/27/2020 Reported: 04/27/2020 14:40 Reported Physicians See Note None Note: Reported Physicians:Ordering: Cristino SnowAttending: Jos Castellanos To: Suzanne Cazares To: Maya Barron Reviewed by Maya Barron MD on 04/30; All test results are final unless otherwise noted. CBC W AUTO DIFF [facility] Ordered by Maya Barron MD [...] Auto See Note (0-2) N (Normal) Note: 0.20.3Q95794925750.2Responsible Ob sql server developer: IG% IG% 100.1375 (B) Hct VFr Bld [...] test results are final unless otherwise noted. [facility] Ordered by Maya Barron MD [...] are final unless otherwise noted. Reported Physicians [facility] Ordered by Maya Barron MD on 04/25/2020 Collected: 04/25/2020 Reported: 04/25/2020 22:11 Reported Physicians See Note None Note: Reported Physicians:Ordering: Aj Ferreiraending: Jso Rivas To: Maya Barron Reviewed by Maya Barron MD on 04/26; All test results are final unless otherwise noted. BHCG, QUANTITATIVE [facility] Ordered by Maya Barron MD on 04/25/2020 Collected: 04/25/2020 Reported: 04/25/2020 22:11 B-HCG [facility] 1758 MilliInternationalUnitsPerMilliLiter_[Arbitrary_Con (0-10) H (High) Note: @Instrument [...] are final unless otherwise noted. Reported Physicians [facility] Ordered by Maya Barron MD on 04/25/2020 Collected: 04/25/2020 Reported: 04/25/2020 22:11 Reported Physicians See Note None Note: Reported Physicians:Ordering: Cristino FerreiraAttending: Jos Rivas To: Maya Barron Reviewed by Maya Barron MD on 04/26; All test results are final unless otherwise noted. Urine culture [facility] Ordered by Maya Barron MD on 04/25/2020 Collected: 04/25/2020 Reported: 04/27/2020 04:50 Bacteria Ur Cult See Note None Note: NGNo growth.L1NG NOTES See Note None Note: @ NICOLE DATE was changed from 04/26 to 04/25/20@ by POMCY. Reviewed by Maya Barron MD on 04/30; All test results are final unless otherwise noted. Reported Physicians [facility] Ordered by Maya Barron MD on 04/25/2020 Collected: 04/25/2020 Reported: 04/27/2020 04:51 Reported Physicians See Note None Note: Reported Physicians:Ordering: Cristino FerreiraAttending: Jos Rivas To: Maya Barron Reviewed by Maya Barron MD on 04/30; All test results are final unless otherwise noted. ADD ON MICROSCOPIC [facility] Ordered by Maya Barron MD on 04/25/2020 Collected: 04/25/2020 Reported: 04/25/2020 21:54 ADD ON MICROSCOPIC See Note (0-5) None Note: NOTES OTHER/NOT INTERPRETED Bacteria UrnS Ql Micro SMALL AMOUNT Bacteria UrnS Ql Micro SMALL AMOUNT Bacteria UrnS Ql Micro L Bacteria UrnS Ql Micro Bacteria UrnS Ql Micro Bacteria UrnS Ql Micro Bacteria UrnS Ql Micro [id number] Bacteria UrnS Ql Micro Bacteria UrnS Ql [...] are final unless otherwise noted. Reported Physicians [facility] Ordered by Maya Barron MD on 04/25/2020 Collected: 04/25/2020 Reported: 04/25/2020 21:54 Reported Physicians See Note None Note: Reported Physicians:Ordering: Aj Ferreiraending: Jos Rivas To: Maya Barron Reviewed by Maya Barron MD on 04/26; All test results are final unless otherwise noted. URINALYSIS [facility] Ordered by Maya Barron MD on 04/25/2020 Collected: 04/25/2020 Reported: 04/25/2020 21:54 Urobilinogen Ur Ql See Note (0.2-1 EU/dl) None Note: 0.2 EU/dl0.2 EU/[id number] E U/dlResponsible Observer: UROBILINOGEN UROBILINOGEN 300.4500 (C) RBC # Ur Strip NEGATIVE (NEGATIVE) None Note: Responsible Observer: BLOOD BLOOD 300.4650 (C) Prot Ur Ql Strip See Note (NEGATIVE) None Note: [id number] EResponsible Observer: PROTEIN PROTEIN 300.3750 (C) Ketones Ur Ql Strip See Note (NEGATIVE) None Note: [id number] EResponsible Observer: KETONE KETONE 300.3900 (C) Bilirub Ur Ql Strip.auto See Note (NEGATIVE) None Note: [id number] EResponsible Observer: BILIRUBIN BILIRUBIN 300.4550 (C) Glucose Ur Strip.auto-mCnc NEGATIVE (NEGATIVE) None Note: Responsible Observer: GLUCOSE GLUC OSE 300.3850 (C) Appearance Ur See Note (CLEAR) None Note: CLEARCLEARLCLEARResponsible Observ er: APPEARANCE APPEARANCE 300.3400 (A) Color Ur See Note None Note: YELLOWYELLOWLYELLOWResponsible Obs erver: COLOR COLOR 300.3300 (A) Leukocyte esterase Ur Ql Strip See Note (NEGATIVE) None Note: [id number]@DO MICR O!!!!Responsible Observer: LEUKOCYTES LEUKOCYTES 300.3575 (C) Nitrite Ur Ql Strip See Note (NEGATIVE) None Note: [id number] EResponsible Observer: NITRITE NITRITE 300.3650 (B) pH [...] are final unless otherwise noted. Reported Physicians [facility] Ordered by Maya Barron MD on 04/25/2020 Collected: 04/25/2020 Reported: 04/25/2020 21:54 Reported Physicians See Note None Note: Reported Physicians:Ordering: Aj Ferreiraending: Jos Rivas To: Maya Barron Reviewed by Maya Barron MD on 04/26; All test results are final unless otherwise noted. BHCG, QUANTITATIVE [facility] Ordered by Maya Barron MD [...] are final unless otherwise noted. Reported Physicians [facility] Ordered by Maya Barron MD on 04/18/2020 Collected: 04/18/2020 Reported: 04/18/2020 15:11 Reported Physicians See Note None Note: Reported Physicians:Ordering: Maya AlvarengaAttending: Maya Barron Reviewed by Maya Barron MD on 04/19; All test results are final unless otherwise noted. ADD ON MICROSCOPIC [facility] Ordered by Maya Barron MD on 04/16/2020 Collected: 04/16/2020 Reported: 04/16/2020 23:51 ADD ON MICROSCOPIC See Note (0-5) None Note: NOTES OTHER/NOT INTERPRETED Bacteria UrnS Ql Micro SMALL AMOUNT Bacteria UrnS Ql Micro SMALL AMOUNT Bacteria UrnS Ql Micro L Bacteria UrnS Ql Micro Bacteria UrnS Ql Micro Bacteria UrnS Ql Micro Bacteria UrnS Ql Micro [id number] Bacteria UrnS Ql Micro Bacteria UrnS Ql [...] are final unless otherwise noted. Reported Physicians [facility] Ordered by Maya Barron MD on 04/16/2020 Collected: 04/16/2020 Reported: 04/16/2020 23:52 Reported Physicians See Note None Note: Reported Physicians:Ordering: Damon , VinodAttending: Damon, VinodCopy To: Maya Barron Reviewed by Maya Barron MD on 04/17; All test results are final unless otherwise noted. UA W/ CULTURE IF ABNORMAL [facility] Ordered by Maya Barron MD on 04/16/2020 Collected: 04/16/2020 Reported: 04/16/2020 23:51 Urobilinogen Ur Ql See Note (0.2-1 EU/dl) None Note: 0.2 EU/dl0.2 EU/[id number] E U/dlResponsible Observer: UROBILINOGEN UROBILINOGEN 300.4500 (C) RBC # Ur Strip NEGATIVE (NEGATIVE) None Note: Responsible Observer: BLOOD BLOOD 300.4652 (C) Prot Ur Ql Strip See Note (NEGATIVE) None Note: [id number] EResponsible Observer: PROTEIN PROTEIN 300.3750 (C) Ketones Ur Ql Strip See Note (NEGATIVE) None Note: [id number] ble Observer: KETONE KETONE 300.3900 (C) Bilirub Ur Ql Strip.auto See Note (NEGATIVE) None Note: [id number] EResponsible Observer: BILIRUBIN BILIRUBIN 300.4550 (C) Glucose Ur Strip.auto-mCnc NEGATIVE (NEGATIVE) None Note: Responsible Observer: GLUCOSE GLUC OSE 300.3850 (C) Appearance Ur See Note (CLEAR) None Note: CLEARCLEARLCLEARResponsible Observ er: APPEARANCE APPEARANCE 300.3400 (A) Color Ur See Note None Note: YELLOWYELLOWLYELLOWResponsible Obs erver: COLOR COLOR 300.3330 (A) Leukocyte esterase Ur Ql Strip See Note (NEGATIVE) None Note: [id number] E@DO MICRO!!!!A Culture has been added to this specimen per established criteriaResponsible Observer: LEUKOCYTES LEUKOCYTES 300.3576 (C) Nitrite Ur Ql Strip See Note (NEGATIVE) None Note: [id number] EResponsible Observer: NITRITE NITRITE 300.3652 (B) pH [...] are final unless otherwise noted. Urine culture [facility] Ordered by Maya Barron MD on 04/16/2020 Collected: 04/16/2020 Reported: 04/18/2020 06:47 Urine culture result See Note None Note: Less than 10,000 CFU/MLNormal Comm ensal FloraProbable contaminants no senst done NOTES See Note None Note: @04/16/20 2351: Urine culture adde d. RFLXG = CULT.ADD. Reviewed by Maya Barron MD on 04/18; All test results are final unless otherwise noted. Reported Physicians [facility] Ordered by Maya Barron MD on 04/16/2020 Collected: 04/16/2020 Reported: 04/18/2020 06:47 Reported Physicians See Note None Note: Reported Physicians:Ordering: Damon , VinodAttending: Damon, VinodCopy To: Maya Barron Reviewed by Maya Barron MD on 04/18; All test results are final unless otherwise noted. CBC W AUTO DIFF [facility] Ordered by Maya Barron MD [...] Auto See Note (0-2) N (Normal) Note: [id number] Ob sql server developer: IG% IG% 100.1375 (B) Hct VFr Bld [...] are final unless otherwise noted. BHCG, QUANTITATIVE [facility] Ordered by Maya Barron MD [...] are final unless otherwise noted. Reported Physicians [facility] Ordered by Maya Barron MD on 04/16/2020 Collected: 04/16/2020 Reported: 04/16/2020 22:47 Reported Physicians See Note None Note: Reported Physicians:Ordering: Damon , VinodAttending: Damon, VinodCopy To: Maya Barron Reviewed by Maya Barron MD on 04/17; All test results are final unless otherwise noted. CMP [facility] Ordered by Maya Barron MD [...] are final unless otherwise noted. Reported Physicians [facility] Ordered by Maya Barron MD on 04/16/2020 Collected: 04/16/2020 Reported: 04/16/2020 22:44 Reported Physicians See Note None Note: Reported Physicians:Ordering: Romel Josettending: Damon, VinodCopy To: Maya Barron Reviewed by Maya Barron MD on 04/17; All test results are final unless otherwise noted. LIPASE [facility] Ordered by Maya Barron MD on 04/16/2020 Collected: 04/16/2020 Reported: 04/16/2020 22:44 Lipase SerPl-cCnc 107 enzyme_unit_per_liter (73-393) N (Normal) Note: Responsible Observer: Lipase Lipas e 400.2310 (G) Reviewed by Maya Barron MD on 04/17; All test results are final unless otherwise noted. Reported Physicians [facility] Ordered by Maya Barron MD on 04/16/2020 Collected: 04/16/2020 Reported: 04/16/2020 22:44 Reported Physicians See Note None Note: Reported Physicians:Ordering: Damon , VinodAttending: Damon, VinodCopy To: Maya Barron Reviewed by Maya Barron MD on 04/17; All test results are final unless otherwise noted. Type and Screen [facility] Ordered by Maya Barron MD [...] are final unless otherwise noted. Reported Physicians [facility] Ordered by Maya Barron MD on 04/16/2020 Collected: 04/16/2020 Reported: 04/16/2020 23:09 Reported Physicians See Note None Note: Reported Physicians:Ordering: Jose E JoseodAttending: Jose E JoseodCopy To: Maya Barron Reviewed by Maya Barron MD on 04/17; All test results are final unless otherwise noted. CBC [facility] Ordered by Maya Barron MD on 04/10/[address] [place] [address], [facility] Collected: 04/10/2020 Reported: 04/11/2020 11:35 tel : [...] test results are final unless otherwise noted. [facility] Ordered by Maya Barron MD on 04/10/[address] [place] [address], [facility] Collected: 04/10/2020 Reported: 04/11/2020 11:35 tel : ext. [phone] Albumin 4.2 g/dl (3.4-5.0) None [...] Ordered by Maya Barron MD on 04/10/[address] [place] [address], [id number] Collected: 04/10/2020 Reported: 04/11/2020 11:35 tel : ext. [phone] TSH 1.336 uIu/mL (0.5-5.8) None Note: Responsible Observer: AW Reviewed by Maya Barron MD on 04/12; All test results are final unless otherwise noted. Urinalysis w/out microscopy Office Lab Ordered by Maya Barron MD on [address] [place] [address], [id number] Specimen Source: Urine Collected: Reported: 2020 11:41 [...] Procedures and Surgical History Includes: Procedures from 2020 through 2021 Procedures Code Diagnosis Performing Provider Service Location Service Date REVISIT- office visit KAYLEIGH 37 weeks gestatio n of Maya Barron MD [facility], [facility] 03/13/2021 REVISIT- office visit KAYLEIGH 36 weeks gestatio n of Maya Barron MD [facility], [facility] 03/07/2021 REVISIT- office visit KAYLEIGH 35 weeks gestatio n of Cat Betzaida Gutierrez RPA [facility], [facility] 02/27/2021 REVISIT- office visit KAYLEIGH 34 weeks gestatio n of Maya Barron MD [facility], [facility] 02/23/2021 REVISIT- office visit KAYLEIGH 29 weeks gestatio n of Maya Barron MD [facility], [facility] 01/16/2021 REVISIT- office visit KAYLEIGH 27 weeks gestatio n of Maya Barron MD [facility], [facility] 12/26/2020 REVISIT- office visit KAYLEIGH 23 weeks gestatio n of Maya Barron MD [facility], [facility] 12/05/2020 REVISIT- office visit KAYLEIGH 22 weeks gestatio n of Maya Barron MD [facility], [facility] 11/28/2020 no charge procedure NC Tension-type headache, unspe cified, intractable Maya Barron MD [facility], [facility] 11/21/2020 REVISIT- office visit KAYLEIGH 21 weeks gestatio n of Maya Barron MD [facility], [facility] 11/21/2020 REVISIT- office visit KAYLEIGH 20 weeks gestatio n of Maya Barron MD [facility], [facility] 11/14/2020 no charge procedure NC Palpitations Maya Barron MD [facility], [facility] 11/03/2020 no charge procedure NC Palpitations Maya Barron MD [facility], [facility] 10/31/2020 REVISIT- office visit KAYLEIGH 18 weeks gestatio n of Maya Barron MD [facility], [facility] 10/31/2020 REVISIT- office visit KAYLEIGH 17 weeks gestatio n of Maya Barron MD [facility], [facility] 10/24/2020 no charge procedure NC Palpitations Maya Barron MD [facility], [facility] 10/17/2020 REVISIT- office visit KAYLEIGH 16 weeks gestatio n of Maya Barron MD [facility], [facility] 10/17/2020 Holter Monitor, Physician review & interpretation only 18888 Palpitations Michel Villalba MD [facility] Outpt 10/11/2020 REVISIT- office visit KAYLEIGH 15 weeks gestatio n of Maya Barron MD [facility], [facility] 10/11/2020 REVISIT- office visit KAYLEIGH 13 weeks gestatio n of Maya Barron MD [facility], [facility] 09/27/2020 REVISIT- office visit KAYLEIGH 12 weeks gestatio n of Maya Barron MD [facility], [facility] 09/19/2020 EKG- Electrocardiogram/12 lead 63830 Chest pain, unspe cified Cat Gutierrez [facility], [facility] 09/11/2020 REVISIT- office visit KAYLEIGH 10 weeks gestatio n of Cat Gutierrez [facility], [facility] 09/05/2020 REVISIT- office visit KAYLEIGH 8 weeks gestation of Maya Barron MD [facility], [facility] 08/22/2020 Urinalysis w/o Microscopy (Distinct Seperate service-same da y) 83343 Frequency of micturition- Urinary Frequency Maya Barron MD [facility], [facility] 08/15/2020 RAPID STREP [id number] Acute pharyngitis, unspecified Maya Barron MD [facility], [facility] 08/15/2020 Initial Obstetrical Care Office Visit OB Le ss than 8 weeks gestation of Cat Gutierrez [facility], [facility] 021 Urinalysis w/o Microscopy 08396 Frequency of micturiti on- Urinary Frequency Maya Barron MD [facility], [facility] 07/19/2020 REVISIT- office visit KAYLEIGH Threatened Alicja Barron MD [facility], [facility] 05/26/2020 NO CHARGE- Nurse visit- OB establish [employer] Thr eatened , state, incidental Maya Barron MD [facility], [facility] 020 General Health Panel( CMP, CBC, TSH) 54924 Dysmenorrhe a, unspecified Maya Barron MD [facility], [facility] 04/10/2020 Venipuncture (routine) 84098 Dysmenorrhea, unspecified Mariela Barron MD [facility], [facility] 04/10/2020 Brief Emotional Behavior Assessment 65809 Scre ening for Mental Health/Behavioral Disorder, Unspecified Maya Barron MD [facility], [facility] 04/10/2020 Surgical History Last Updated No surgical [...] 2 01/16/2021 Left Deltoid Complete (A dministered) [facility] Varicella 1 04/18/2000 Complete (Reported) Patient Varicella 2 04/29/2016 Complete (Reported) Patient Allergies Includes: Active, inactive, and resolved Allergies Substance Type Reaction Onset Date - Time Resolved Date - Ti me Status Naproxen Allergy Skin Rashes 02/01/2020 - 12:00AM Act marquita Encounters Includes: Encounters from 2020 through 2021 Encounter Provider Location Date Check-In Time Check-Out Time D iagnosis TCMNV phone call- NO CHARGE Maya Barron MD [facility] 2021 03/13/2021 12:00PM 03/13/2021 11:59PM Chest Pain, Fracture of Fifth Cervical Vertebral Body, Generalized Anxiety Disorder, History of Psychiatric Disorders, Reactive Airway Disease REVISIT- Routine (OB) Visit Maya Barron MD [facility], [facility] 03/13/2021 9:55AM 10:07AM REVISIT- Routine (OB) Visit Maya Barron MD [facility], [facility] 03/07/2021 10:01AM 10:23AM REVISIT- Routine (OB) Visit Cat Gutierrez RPA [facility], [facility] 02/27/2021 9:52AM 10:21AM REVISIT- Routine (OB) Visit Maya Barron MD [facility], [facility] 02/23/2021 2:25PM 2:41PM REVISIT- Routine (OB) Visit Maya Barron MD [facility], [facility] 01/16/2021 9:52AM 10:23AM Telehealth communication Maya Barron MD [facility], [facility] 01/09/2021 12/26/2020 10:00AM 10:27AM Generalized Anxiety Disorder, Chest Pain, Iron Deficiency Anemia, Upper Respiratory Infection REVISIT- Routine (OB) Visit Maya Barron MD [facility], [facility] 12/26/2020 9:45AM 10:08AM telephone conversation Michel Villalba MD 1 12/14/2020 9:13AM 12/14/2020 11:59PM Atypical Chest Pain telephone conversation Michel Villalba MD 1 12/14/2020 6:45PM 12/14/2020 11:59PM Hypotension telephone conversation Maya Barron MD [facility] 12/19/2020 12/14/2020 2:14PM 12/14/2020 11:59PM Fracture of Fifth Ce rvical Vertebral Body, History of Psychiatric Disorders, Reactive Airway Disease Problem visit - not contagious Bandar Cleveland PA-C [facility], [facility] 12/14/2020 2:08PM 2:52PM Tension-type Headach e REVISIT- Routine (OB) Visit Maya Barron MD [facility], [facility] 12/05/2020 11:17AM 12:08PM REVISIT- Routine (OB) Visit Maya Barron MD [facility], [facility] 11/28/2020 1:34PM 1:51PM Chronic Care Mgt - Office Visit Maya Barron MD [facility], [facility] 11/21/2020 2:10PM 2:35PM Fracture of Fift h Cervical Vertebral Body, History of Psychiatric Disorders, Reactive Airway Disease REVISIT- Routine (OB) Visit Maya Barron MD [facility], [facility] 11/21/2020 11:33AM 12:01PM REVISIT- Routine (OB) Visit Maya Barron MD [facility], [facility] 11/14/2020 9:55AM 10:36AM REVISIT- Routine (OB) Visit Maya Barron MD [facility], [facility] 11/07/2020 11:42AM 12:02PM OB- ILL VISIT Maya Barron MD [facility], [facility] 11/03/2020 3:45PM 4:29PM , Generalized Anxie ty Disorder, Panic Disorder, Chest Pain Chronic Care Mgt - Office Visit Maya Barron MD [facility], [facility] 11/03/2020 2:37PM 3:38PM Chronic Care Mgt - Office Visit Maya Barron MD [facility], [facility] 10/31/2020 3:23PM 3:24PM Fracture of Fift h Cervical Vertebral Body, History of Psychiatric Disorders, Reactive Airway Disease REVISIT- Routine (OB) Visit Maya Barron MD [facility], [facility] 10/31/2020 9:54AM 10:24AM Chronic Care Mgt - Office Visit Maya Barron MD [facility], [facility] 10/24/2020 2:16PM 11:59PM REVISIT- Routine (OB) Visit Maya Barron MD [facility], [facility] 10/24/2020 10:00AM 10:47AM REVISIT- Routine (OB) Visit Maya Barron MD [facility], [facility] 10/17/2020 11:24AM 12:12PM Chronic Care Mgt - Office Visit Maya Barron MD [facility], [facility] 10/17/2020 11:25AM 12:11PM Fracture of Fift h Cervical Vertebral Body, History of Psychiatric Disorders, Reactive Airway Disease REVISIT- Routine (OB) Visit Maya Barron MD [facility], [facility] 10/11/2020 9:44AM 10:15AM OB- ILL VISIT Maya Barron MD [facility], [facility] 10/04/2020 2:12PM 2:31PM Presyncope Syndrome, Tachyca rdia, Palpitations, Difficulty Breathing (Dyspnea), Weeks of Gestation - 14 REVISIT- Routine (OB) Visit Maya Barron MD [facility], [facility] 09/27/2020 1:36PM 1:59PM telephone conversation Michel Villalba MD 09/19/2020 9:43PM 09/19/2020 11:59PM Atypical Chest Pain REVISIT- Routine (OB) Visit Maya Barron MD [facility], [facility] 09/19/2020 9:48AM 10:14AM REVISIT- Routine (OB) Visit Cat Gutierrez [facility], [facility] 09/11/2020 3:22PM 4:16PM REVISIT- Routine (OB) Visit Cat Gutierrez [facility], [facility] 09/05/2020 9:37AM 10:00AM TCMNV phone call- NO CHARGE Cat Gutierrez [facility] 09/04/2020 09/05/2020 4:54PM 09/05/2020 11:59PM [Patient Encounter] Cat Gutierrez [facility] 08/31/2020 021 2:21PM 08/22/2020 11:59PM telephone conversation Michel Villalba MD 08/2808/22/2020 11:00AM 08/22/2020 11:59PM REVISIT- Routine (OB) Visit Maya Barron MD [facility], [facility] 08/22/2020 1:56PM 2:19PM sick visit Maya Barron MD [facility], [facility] 0 08/15/2020 9:36AM 10:12AM Upper Respiratory Infection Acute, Pollakiuria OB/1st visit *UA @ Checkin* Fax Demo's c Due Date* Cat Gutierrez [facility] 08/09/2020 9:22AM 10:56AM followup Cat Gutierrez [facility] 0 08/02/2020 10:18AM 11:42AM Generalized Anxiety Disorder , Early Stage, Abdominal Pain telephone conversation Michel Villalba MD 07/26/2020 7:59AM 07/26/2020 11:59PM [Patient Encounter] Cat Gutierrez [facility] 07/28/2020 021 2:20PM 07/26/2020 11:59PM followup Maya Barron MD [facility] 0 07/26/2020 10:39AM 11:02AM , Generalized Anxie ty Disorder sick visit Bandar Cleveland PA-C [facility] 3:36PM 4:30PM Pyrexia followup Maya Barron MD [facility] 0 07/19/2020 10:52AM 11:30AM , Generalized Anxie ty Disorder, Pollakiuria followup Maya Barron MD [facility] 1 09/11/2019 10:43AM 11:14AM Atypical Chest Pain, Adjustm ent Disorder followup Maya Barron MD [facility] 1 08/07/2019 10:43AM 10:59AM Missed followup Maya Barron MD [facility] 05/26 1:45PM 2:11PM with Threatened Problem visit - not contagious Maya Barron MD [facility] 05/24/2020 11:13AM 12:00PM with T hreatened [Patient Encounter] Maya Barron MD 05/24/2020 020 10:17AM 04/19/2020 11:59PM followup Maya Barron MD [facility] 1 11:51AM 12:08PM ANNUAL PE-followup Maya Barron MD [facility] 04/10/2020 8:42AM 9:13AM Routine History and Physical Adult (18 - 64 Yrs), Dysmenorrhea Insurance Includes: Active Insurance Policies Plan Name Member ID Group # Subscriber Relationship Effective Da greg 1 - MANAGED MEDICAID [facility] [id number] Georgiana Nguyen 07/14/2020 - Unknown Advance Directives Includes: Current Advance DirectivesNo Advance Directives Recorded Health Concerns Includes: Active Health ConcernsNo Active Health Concerns Recorded Goals Includes: Active GoalsNo Active Goals Recorded Interventions Includes: Interventions for active GoalsNo Interventions Recorded Evaluations & Outcomes Includes: Evaluations & Outcomes for active GoalsNo Outcomes Recorded
--- OUTSIDE RECORDS SUMMARY | 2021-04-29 16:38 | CCD ---
Author Author [facility] Organization [facility] Address [address] [place] [address] Phone Care Team Providers Care Palliative Senior Np Name Role Phone Anderson GILL, Maya Duke PP [phone] Kimberly White DPM Unavailable Unavailable Reason for [...] Treatment Future Appointments Date Time Location Provider REVISIT- Routine (OB) Visit 03/20/2021 10:00AM [facility] Beth Gutierrez RPA REVISIT- Routine (OB) Visit 03/27/2021 10:15AM [facility] Maya Barron MD Findings Encounter Date Community resources No referrals needed at this time Chronic Care Mgt - Office Visit with Maya Barron MD 10/17/2020 Follow-up visit date 10/17/2020 PCP visi t and CCM visit (Dr. Barron and Esther Howell,EHSAN) Chronic [...] if concerned urgent visit with Linda Smith [facility] 08/07/2019 Referred elsewhere for physical therapy service ANNUAL PE-followup with Maya Barron MD 04/07/2019 Discussed treatment plan with the marifer ent. Exam findings consistent with muscle strain, no cardiovascular component, risk factors or concerning exam findings. Recommended moist heat, limiting aggravating activities and to monitor for now. See back with any worsening or persistent symptoms, questions or concerns sick visit with Cat Gutierrez [facility] 10/30/2018 Assessments Includes: Assessments for all patient encounters Findings Encounter Date Chest pain patient has had multiple ER [...] anxiety disorder] OB- ILL VISIT with Maya Barorn MD 11/03/2020 Panic disorder [Panic disorder [episodic [...] surance provided today. Advised reaching out to social science teacher for assistance with access to food and [...] below. Pelv ic US reviewed from February, wnl. 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 care with [facility], [facility] on health maintenance [Encounter for general adult medical examination with abnormal findings] ANNUAL PE-followup exam with Maya Barron MD 04/07/2019 Vaginal candidiasis sick visit with [facility] 02/11 Pharyngitis urgent visit with Bandar Cleveland PA-C 2018 Sprained ribs ; left sick visit with [facility] Strain of muscle and tendon of front wall of thorax si ck visit with [facility] 10/30/2018 Fracture of fifth cervical vertebral body No Fault with [facility] 03/04/2018 Late effects of accident No Fault with [facility] 0 03/04/2018 Instructions Instructions not supported [...] 150 MG Oral Tablet Extended Release 24 Hour Provider: Maya Barron MD Diagnosis: 1 PO QD Ferrous Sulfate 325 (65 Fe) MG Oral [...] off 12hrs to affected area on chest hydrOXYzine HCl 25 MG Oral Tablet 10/24/2020 [...] Recorded Vital Signs Includes: Vital Signs from 03/13/2020 through 03/13/2021 Vital Name 03/13/2021 10:02A 03/07/2021 10:12A 02/27/2021 [...] 1.57 1. 55 Results Includes: Results from 03/13/2020 through 03/13/2021 Cepheid GBS RT-PCR [facility] Ordered by Cat Gutierrez RPA on 02/27/2021 Collected: 02/27/2021 Reported: 02/28/2021 12:50 Cepheid GBS RT-PCR See Note None Note: Cepheid Gene Xpert GBS LB assay is a RT-PCR with fluorogenicdetection of amplified DNA.Normal Result is " No Group B Strep detected "PREGBSNNo Group B strep [id number] Group B strep detected Reviewed by Cat Gutierrez RPA on 02/28; All test results are final unless otherwise noted. Reported Physicians [facility] Ordered by Cat Gutierrez RPA on 02/27/2021 Collected: 02/27/2021 Reported: 02/28/2021 12:50 Reported Physicians See Note None Note: Reported Physicians:Ordering: Cat ConwayAttending: Cat Gutierrez Reviewed by Cat Gutierrez RPA on 02/28; All test results are final unless otherwise noted. TROPONIN T [facility] Ordered by Maya Barron MD on 02/22/2021 Collected: 02/22/2021 Reported: 02/22/2021 00:25 TROPONIN T <0.01 NG/ML (0.00 - 0.10) None Note: TROPONIN T0.1 ng/ml Recommended as the clinical threshold value forTroponin T.Responsible Observer: (LBS) Reviewed by Maya Barron MD on 02/23; All test results are final unless otherwise noted. Reported Physicians [facility] Ordered by Maya Barron MD on 02/22/2021 Collected: 02/22/2021 Reported: 02/22/2021 00:26 Reported Physicians See Note None Note: Reported Physicians:Ordering: TURR IN, RICCARDOAttending: TURRIN, RICCARDOConsulting: Rubén BARRON To: TURRIN, RICCARDOCopy To: ARIA MEJIACARDO Reviewed by Maya Barron MD on 02/23; All test results are final unless otherwise noted. COMPREHENSIVE METABOLIC PANEL [facility] Ordered by Maya Barron [...] are final unless otherwise noted. Reported Physicians [facility] Ordered by Maya Barron MD on 02/21/2021 Collected: 02/21/2021 Reported: 02/21/2021 21:47 Reported Physicians See Note None Note: Reported Physicians:Ordering: MARCELINO INJESSEEAttending: JESSEE MEJIAConsulting: Rubén BARRON To: Saleem MEJIA To: JESSEE MEJIA Reviewed by Maya Barron MD on 02/23; All test results are final unless otherwise noted. TROPONIN T [facility] Ordered by Maya Barron MD on 02/21/2021 Collected: 02/21/2021 Reported: 02/21/2021 21:47 TROPONIN T <0.01 NG/ML (0.00 - 0.10) None Note: TROPONIN T0.1 ng/ml Recommended as the clinical threshold value forTroponin T.Responsible Observer: (ABIOLA) Reviewed by Maya Barron MD on 02/23; All test results are final unless otherwise noted. Reported Physicians [facility] Ordered by Maya Barron MD on 02/21/2021 Collected: 02/21/2021 Reported: 02/21/2021 21:47 Reported Physicians See Note None Note: Reported Physicians:Ordering: TURR IN, RICCARDOAttending: HOLLYRIN, RICCARDOConsulting: Rubén BARRON To: ROBERTO, RICCARDOCopy To: JESSEE MEJIA Reviewed by Maya Barron MD on 02/23; All test results are final unless otherwise noted. LIPASE SERUM [facility] Ordered by Maya Barron MD on 02/21/2021 Collected: 02/21/2021 Reported: 02/21/2021 21:42 LIPASE 22 U/L (13 - 60) None Note: Responsible Observer: (ABIOLA) Reviewed by Maya Barron MD on 02/23; All test results are final unless otherwise noted. Reported Physicians [facility] Ordered by Maya Barron MD on 02/21/2021 Collected: 02/21/2021 Reported: 02/21/2021 21:42 Reported Physicians See Note None Note: Reported Physicians:Ordering: TURR IN, RICCARDOAttending: ROBERTO, RICCARDOConsulting: Rubén BARRON To: HOLLYRIN, RICCARDOCopy To: HOLLYRIN, JESSEE Reviewed by Maya Barron MD on 02/23; All test results are final unless otherwise noted. CBC W/AUTOMATED DIFF [facility] Ordered by Maya Barron MD [...] are final unless otherwise noted. Reported Physicians [facility] Ordered by Maya Barron MD on 02/21/2021 Collected: 02/21/2021 Reported: 02/21/2021 21:21 Reported Physicians See Note None Note: Reported Physicians:Ordering: MARCELINO INJESSEEAttending: JESSEE MEJIAConsulting: Rubén BARRON To: Saleem MEJIA To: JESSEE MEJIA Reviewed by Maya Barron MD on 02/23; All test results are final unless otherwise noted. 1HR GESTATIONAL GLUCOSE (50gm) [facility] Ordered by Maya Barron MD [...] are final unless otherwise noted. Reported Physicians [facility] Ordered by Maya Barron MD on 01/30/2021 Collected: 01/30/2021 Reported: 01/30/2021 14:23 Reported Physicians See Note None Note: Reported Physicians:Ordering: Maya AlvarengaAttending: Maya Barron Reviewed by Maya Barron MD on 01/31; All test results are final unless otherwise noted. URINALYSIS [facility] Ordered by Maya Barron MD on 01/30/2021 Collected: 01/30/2021 Reported: 01/30/2021 12:35 Urobilinogen Ur Ql See Note (0.2-1 EU/dl) None Note: 0.2 EU/dl0.2 EU/[id number] E U/dlResponsible Observer: UROBILINOGEN UROBILINOGEN 300.4500 (C) RBC # Ur Strip NEGATIVE (NEGATIVE) None Note: Responsible Observer: BLOOD BLOOD 300.4650 (C) Prot Ur Ql Strip See Note (NEGATIVE) None Note: [id number] ble Observer: PROTEIN PROTEIN 300.3750 (C) Ketones Ur Ql Strip See Note (NEGATIVE) None Note: 15 mg/dL15 mg/[id number] mg/d LResponsible Observer: KETONE KETONE 300.3900 (C) Bilirub Ur Ql Strip.auto See Note (NEGATIVE) None Note: [id number] EResponsible Observer: BILIRUBIN BILIRUBIN 300.4550 (C) Glucose Ur Strip.auto-mCnc NEGATIVE (NEGATIVE) None Note: Responsible Observer: GLUCOSE GLUC OSE 300.3850 (C) Appearance Ur See Note (CLEAR) None Note: CLEARCLEARLCLEARResponsible Observ er: APPEARANCE APPEARANCE 300.3400 (A) Color Ur See Note None Note: YELLOWYELLOWLYELLOWResponsible Obs erver: COLOR COLOR 300.3300 (A) Leukocyte esterase Ur Ql Strip See Note (NEGATIVE) None Note: [id number] E@DO MICRO!!!!Responsible Observer: LEUKOCYTES LEUKOCYTES 300.3575 (C) Nitrite Ur Ql Strip See Note (NEGATIVE) None Note: [id number] EResponsible Observer: NITRITE NITRITE 300.3650 (B) pH [...] are final unless otherwise noted. Reported Physicians [facility] Ordered by Maya Barron MD on 01/30/2021 Collected: 01/30/2021 Reported: 01/30/2021 12:36 Reported Physicians See Note None Note: Reported Physicians:Ordering: Bia Alvarenga: Maya Barron Reviewed by Maya Barron MD on 01/31; All test results are final unless otherwise noted. Urine culture [facility] Ordered by Maya Barron MD on 01/30/2021 Collected: 01/30/2021 Reported: 02/01/2021 06:50 Urine culture result No growth None Reviewed by Maya Barron MD on 02/02; All test results are final unless otherwise noted. Reported Physicians [facility] Ordered by Maya Barron MD on 01/30/2021 Collected: 01/30/2021 Reported: 02/01/2021 06:50 Reported Physicians See Note None Note: Reported Physicians:Ordering: Cara Alvarengaending: Maya Barron Reviewed by Maya Barron MD on 02/02; All test results are final unless otherwise noted. ADD ON MICROSCOPIC [facility] Ordered by Maya Barron MD on 01/30/2021 Collected: 01/30/2021 Reported: 01/30/2021 12:35 ADD ON MICROSCOPIC See Note (0-5) H (High) Note: NOTES OTHER/NOT INTERPRETED Bacteria UrnS Ql Micro MODERATE AMOUNT Bacteria UrnS Ql Micro MODERATE AMOUNT Bacteria UrnS Ql Micro L Bacteria UrnS Ql Micro Bacteria UrnS Ql Micro Bacteria UrnS Ql Micro Bacteria UrnS Ql Micro [id number] Bacteria UrnS Ql Micro Bacteria UrnS Ql [...] Ql Micro Mucous Threads UrnS Ql Micro [id number] Mucous Threads UrnS Ql Micro Mucous Threads UrnS Ql Micro LARGE AMOUNT WBC # Ur Manual 15-20 @01/30/21 1230: UA W/ MICRO added. RFLXG = UMIC.Method of Collection:: VoidedResponsible Observer: WBC WBC 300.5000 (A) Reviewed by Maya Barron MD on 01/31; All test results are final unless otherwise noted. Reported Physicians [facility] Ordered by Maya Barron MD on 01/30/2021 Collected: 01/30/2021 Reported: 01/30/2021 12:36 Reported Physicians See Note None Note: Reported Physicians:Ordering: Maya AlvarengaAttending: Maya Barron Reviewed by Maya Barron MD on 01/31; All test results are final unless otherwise noted. TROPONIN [facility] Ordered by Maya Barron MD [...] See Note None Note: Test(s)performed at - [place] [address] Reviewed by Maya Barron MD on 01/12; All test results are final unless otherwise noted. Reported Physicians [facility] Ordered by Maya Barron MD on 01/11/2021 Collected: 01/11/2021 Reported: 01/11/2021 17:30 Reported Physicians See Note None Note: Reported Physicians:Ordering: Les Vanegas: Fady Raza To: Maya Barron Reviewed by Maya Barron MD on 01/12; All test results are final unless otherwise noted. TSH w/ reflex to Free T4 [facility] Ordered by Maya Barron MD on 01/11/2021 Collected: 01/11/2021 Reported: 01/11/2021 17:30 TSH SerPl DL<=0.005 mIU/L-aCnc 1.05 MicroInternationalUnitsPerMilliLiter_[Arbitrary_Con (0.35-5. 50) N (Normal) Note: Responsible Observer: TSH TSH 600 .7060 (D) NOTES See Note None Note: Test(s)[place] [address] Reviewed by Maya Barron MD on 01/12; All test results are final unless otherwise noted. Reported Physicians [facility] Ordered by Maya Barron MD on 01/11/2021 Collected: 01/11/2021 Reported: 01/11/2021 17:30 Reported Physicians See Note None Note: Reported Physicians:Ordering: Les Vanegas: Fady Raza To: Maya Barron Reviewed by Maya Barron MD on 01/12; All test results are final unless otherwise noted. CBC W AUTO DIFF [facility] Ordered by Maya Barron MD [...] Auto See Note (0-2) N (Normal) Note: 0.90.4J85789048030.9Responsible Ob service observer: IG% IG% 100.1375 (B) Hct VFr Bld [...] test results are final unless otherwise noted. [facility] Ordered by Maya Barron [...] NOTES See Note None Note: Test(s)[place] [address] Reviewed by Maya Barron MD on 01/12; All test results are final unless otherwise noted. Reported Physicians [facility] Ordered by Maya Barron MD on 01/11/2021 Collected: 01/11/2021 Reported: 01/11/2021 17:30 Reported Physicians See Note None Note: Reported Physicians:Ordering: Les Vanegasding: Fady Raza To: Maya Barron Reviewed by Maya Barron MD on 01/12; All test results are final unless otherwise noted. UA W/ CULTURE IF ABNORMAL [facility] Ordered by Maya Barron MD on 12/28/2020 Collected: 12/28/2020 Reported: 12/28/2020 21:56 Urobilinogen Ur Ql See Note (0.2-1 EU/dl) None Note: 0.2 EU/dl0.2 EU/[id number] E U/dlResponsible Observer: UROBILINOGEN UROBILINOGEN 300.4500 (C) RBC # Ur Strip NEGATIVE (NEGATIVE) None Note: Responsible Observer: BLOOD BLOOD 300.4652 (C) Prot Ur Ql Strip See Note (NEGATIVE) None Note: [id number] EResponsible Observer: PROTEIN PROTEIN 300.3750 (C) Ketones Ur Ql Strip See Note (NEGATIVE) None Note: [id number] EResponsible Observer: KETONE KETONE 300.3900 (C) Bilirub Ur Ql Strip.auto See Note (NEGATIVE) None Note: [id number] EResponsible Observer: BILIRUBIN BILIRUBIN 300.4550 (C) Glucose Ur Strip.auto-mCnc 250 mg/dl (NEGATIVE) None Note: Responsible Observer: GLUCOSE GLUC OSE 300.3850 (C) Appearance Ur See Note (CLEAR) A (Abnormal) Note: TURBIDTURBIDLTURBIDResponsible Obs erver: APPEARANCE APPEARANCE 300.3400 (A) Color Ur See Note None Note: YELLOWYELLOWLYELLOWResponsible Obs erver: COLOR COLOR 300.3330 (A) Leukocyte esterase Ur Ql Strip See Note (NEGATIVE) None Note: [id number]@DO MICR O!!!!A Culture has been added to this specimen per established criteriaResponsible Observer: LEUKOCYTES LEUKOCYTES 300.3576 (C) Nitrite Ur Ql Strip See Note (NEGATIVE) None Note: [id number] EResponsible Observer: NITRITE NITRITE 300.3652 (B) pH Ur Strip 7.0 (5-8) None Note: Responsible Observer: PH PH 300.3 450 (C) Sp Gr Ur Refractometry 1.021 (1.005-1.030) None Note: Responsible Observer: SP GRAVITY U RINE SPECIFIC GRAVITY-MAN 300.3475 (C) URINE MICROSCOPIC? (CIF) Microscopic Added None Note: Responsible Observer: UA URINE SHAWN ROSCOPIC PENDING 300.6005 (D) NOTES See Note None Note: Reason for ordering culture: Abnor mal findings UA@12/28/202155: UA W/ MICRO added. RFLXG = UMIC CIF.Method of Collection:: Voided Reviewed by Maya Barron MD on 01/01; All test results are final unless otherwise noted. Urine culture [facility] Ordered by Maya Barron MD on 12/28/2020 Collected: 12/28/2020 Reported: 12/30/2020 08:03 Urine culture result 25,000 CFU/ML Lactobacilli no senst done None NOTES See Note None Note: @12/28/202155: Urine culture adde d. RFLXG = CULT.ADD. Reviewed by Maya Barron MD on 01/01; All test results are final unless otherwise noted. Reported Physicians [facility] Ordered by Maya Barron MD on 12/28/2020 Collected: 12/28/2020 Reported: 12/30/2020 08:03 Reported Physicians See Note None Note: Reported Physicians:Ordering: Sana Recinosending: Sammie Ann To: Maya Barron Reviewed by Maya Barron MD on 01/01; All test results are final unless otherwise noted. ADD ON MICROSCOPIC [facility] Ordered by Maya Barron MD [...] Ql Micro Amorph Sed UrnS Ql Micro [id number] Amorph Sed UrnS Ql Micro Amorph Sed UrnS Ql Micro LARGE AMT URATES Bacteria UrnS Ql Micro SMALL AMOUNT Bacteria UrnS Ql Micro SMALL AMOUNT Bacteria UrnS Ql Micro L Bacteria UrnS Ql Micro Bacteria UrnS Ql Micro Bacteria UrnS Ql Micro Bacteria UrnS Ql Micro [id number] Bacteria UrnS Ql Micro Bacteria UrnS Ql [...] are final unless otherwise noted. Reported Physicians [facility] Ordered by Maya Barron MD on 12/28/2020 Collected: 12/28/2020 Reported: 12/28/2020 21:56 Reported Physicians See Note None Note: Reported Physicians:Ordering: Sana Recinosending: Norman Annopy To: Maya Barron Reviewed by Maya Barron MD on 01/01; All test results are final unless otherwise noted. Cepheid SARS/FLU/RSV RT-PCR [facility] Ordered by Maya Barron MD [...] by FDA under an EUA for use bysan [facility] medical centerNoemaliferiOrnim Medicalqlfjupzlkzsk79098-3BCWU-cep CoV RNA Resp Ql ТАТЬЯНА+iwszjLJYQBPBGTKV-HMM-3 NOT [id number]-PTY-6 NOT [id number] RNA Resp Ql ТАТЬЯНА+probeLNNFLUAInfluenza A Not Det [id number] A Not Zwtqsoae74306-8GZRKD RNA Resp Ql ТАТЬЯНА+probeLNNINBInfluenza B Not [id number] B Not Tqoxxozh85542- 2RSV RNA Resp Ql ТАТЬЯНА+probeLNNRSVRSV Not ZwdfgcxpU9489272050QWG Not Detected Reviewed by Maya Barron MD on 01/01; All test results are final unless otherwise noted. Reported Physicians [facility] Ordered by Maya Barron MD on 12/28/2020 Collected: 12/28/2020 Reported: 12/28/2020 22:13 Reported Physicians See Note None Note: Reported Physicians:Ordering: Sana Recinosending: Sammie Ann To: Maya Barron Reviewed by Maya Barron MD on 01/01; All test results are final unless otherwise noted. CBC W AUTO DIFF [facility] Ordered by Maya Barron MD [...] Auto See Note (0-2) N (Normal) Note: 0.30.5W09787244025.3Responsible Ob service observer: IG% IG% 100.1375 (B) Hct VFr Bld [...] test results are final unless otherwise noted. [facility] Ordered by Maya Barron [...] results are final unless otherwise noted. LAC [facility] Ordered by Maya Barron MD on 12/28/2020 Collected: 12/28/2020 Reported: 12/28/2020 21:08 Lactic w Rfx (if elevated) 1.5 MilliMolesPerLiter_[Substance_Concentration_Units] (0.5-2.0) N (Normal) Note: Responsible Observer: Lactic Acid Lactic Acid 400.2831 (G) Reviewed by Maya Barron MD on 01/03; All test results are final unless otherwise noted. Blood Culture (Incl Anaerobic)-1 [facility] Ordered by Maya Barron MD on 12/28/2020 Collected: 12/28/2020 Reported: 01/02/2021 20:38 Bacteria Bld Cult See Note None Note: NG5DNo growth.F9OU7CAN GROWTH AFTE R 5 DAYS Reviewed by Maya Barron MD on 01/03; All test results are final unless otherwise noted. Blood Culture (Incl Anaerobic)-2 [facility] Ordered by Maya Barron MD on 12/28/2020 Collected: 12/28/2020 Reported: 01/02/2021 20:38 Bacteria Bld Cult See Note None Note: NG5DNo growth.L7YY1KSC GROWTH AFTE R 5 DAYS Reviewed by Maya Barron MD on 01/03; All test results are final unless otherwise noted. Reported Physicians [facility] Ordered by Maya Barron MD on 12/28/2020 Collected: 12/28/2020 Reported: 01/02/2021 20:38 Reported Physicians See Note None Note: Reported Physicians:Ordering: Sana Recinosending: Sammie Ann To: Maya Barron Reviewed by Maya Barron MD on 01/03; All test results are final unless otherwise noted. D-DIMER [facility] Ordered by Maya Barron MD on 12/28/2020 Collected: 12/28/2020 Reported: 12/28/2020 03:46 D-DIMER QUANT 0.36 ug/mL (0.27 - 0.50) None Note: Responsible Observer: (LBS) Reviewed by Maya Barron MD on 12/29; All test results are final unless otherwise noted. Reported Physicians [facility] Ordered by Maya Barron MD on 12/28/2020 Collected: 12/28/2020 Reported: 12/28/2020 03:46 Reported Physicians See Note None Note: Reported Physicians:Ordering: TURR IN, RICCARDOAttending: TURRIN, RICCARDOConsulting: Rubén BARRON To: HOLLYRIN, RICCARDOCopy To: JESSEE MEJIA Reviewed by Maya Barron MD on 12/29; All test results are final unless otherwise noted. LIPASE SERUM [facility] Ordered by Maya Barron MD on 12/28/2020 Collected: 12/28/2020 Reported: 12/28/2020 04:05 LIPASE 33 U/L (13 - 60) None Note: Responsible Observer: (MLE) Reviewed by Maya Barron MD on 12/29; All test results are final unless otherwise noted. Reported Physicians [facility] Ordered by Maya Barron MD on 12/28/2020 Collected: 12/28/2020 Reported: 12/28/2020 04:06 Reported Physicians See Note None Note: Reported Physicians:Ordering: TURR IN, RICCARDOAttending: HOLLYRIN, RICCARDOConsulting: Rubén BARRON To: TURRIN, RICCARDOCopy To: TURRIN, JESSEE Reviewed by Maya Barron MD on 12/29; All test results are final unless otherwise noted. PT/PTT [facility] Ordered by Maya Barron MD [...] are final unless otherwise noted. Reported Physicians [facility] Ordered by Maya Barron MD on 12/28/2020 Collected: 12/28/2020 Reported: 12/28/2020 03:46 Reported Physicians See Note None Note: Reported Physicians:Ordering: MARCELINO INARIACARDOAttending: ARIA MEJIACARConsulting: Rubén BARRON To: JESSEE MEJIACopy To: JESSEE MEJIA Reviewed by Maya Barron MD on 12/29; All test results are final unless otherwise noted. CBC W/AUTOMATED DIFF [facility] Ordered by Maya aBrron MD on 12/28/2020 Collected: 12/28/2020 Reported: 12/28/2020 [...] are final unless otherwise noted. Reported Physicians [facility] Ordered by Maya Barron MD on 12/28/2020 Collected: 12/28/2020 Reported: 12/28/2020 03:34 Reported Physicians See Note None Note: Reported Physicians:Ordering: TURR IN, RICCARDOAttending: ROBERTO, RICCARDOConsulting: Rubén BARRON To: HOLLYRIN, RICCARDOCopy To: JESSEE MEJIA Reviewed by Maya Barron MD on 12/29; All test results are final unless otherwise noted. COMPREHENSIVE METABOLIC PANEL [facility] Ordered by Maya Barron [...] are final unless otherwise noted. Reported Physicians [facility] Ordered by Maya Barron MD on 12/28/2020 Collected: 12/28/2020 Reported: 12/28/2020 04:05 Reported Physicians See Note None Note: Reported Physicians:Ordering: MARCELINO IN, RICCARDOAttending: JESSEE MEJIAConsulting: Rubén BARRON To: ROBERTO RICCARDOCopy To: JESSEE MEJIA Reviewed by Maya Barron MD on 12/29; All test results are final unless otherwise noted. TROPONIN T [facility] Ordered by Maya Barron MD on 12/28/2020 Collected: 12/28/2020 Reported: 12/28/2020 04:05 TROPONIN T <0.01 NG/ML (0.00 - 0.10) None Note: TROPONIN T0.1 ng/ml Recommended as the clinical threshold value forTanmed health cannon T.Responsible Observer: (MLE) Reviewed by Maya Barron MD on 12/29; All test results are final unless otherwise noted. Reported Physicians [facility] Ordered by Maya Barron MD on 12/28/2020 Collected: 12/28/2020 Reported: 12/28/2020 04:05 Reported Physicians See Note None Note: Reported Physicians:Ordering: MARCELINO IN, RICCARDOAttending: ARIA MEJIACARConsulting: Rubén BARRON To: ARIA MEJIACARDOCopy To: JESSEE MEJIA Reviewed by Maya Barron MD on 12/29; All test results are final unless otherwise noted. Cepheid SARS/FLU/RSV RT-PCR [facility] Ordered by Maya Barron MD [...] by FDA under an EUA for use bysan [facility] medical centerOuternetqqylpnztzzca03042-7MYQG-scu CoV RNA Resp Ql ТАТЬЯНА+rymejVZRNSWSKRSF-VFT-9 NOT [id number]-[id number]-3 NOT [id number] RNA Resp Ql ТАТЬЯНА+probeLNNFLUAInfluenza A Not Det [id number] A Not Gunjdxrs10570-5XUYQA RNA Resp Ql ТАТЬЯНА+probeLNNINBInfluenza B Not [id number] B Not Grwavrxc51283- 2RSV RNA Resp Ql ТАТЬЯНА+probeLNNRSVRSV Not [id number] Not Detected Reviewed by Maya Barron MD on 12/25; All test results are final unless otherwise noted. Reported Physicians [facility] Ordered by Maya Barron MD on 12/23/2020 Collected: 12/23/2020 Reported: 12/23/2020 13:41 Reported Physicians See Note None Note: Reported Physicians:Ordering: Aj Ferreiraending: Jos Rivas To: Maya Barron Reviewed by Maya Barron MD on 12/25; All test results are final unless otherwise noted. UA W/ CULTURE IF ABNORMAL [facility] Ordered by Maya Barron MD on 12/23/2020 Collected: 12/23/2020 Reported: 12/23/2020 08:51 Urobilinogen Ur Ql See Note (0.2-1 EU/dl) None Note: 1 EU/dl1 EU/[id number] EU/dlRe sponsible Observer: UROBILINOGEN UROBILINOGEN 300.4500 (C) RBC # Ur Strip NEGATIVE (NEGATIVE) None Note: Responsible Observer: BLOOD BLOOD 300.4652 (C) Prot Ur Ql Strip See Note (NEGATIVE) None Note: [id number] ble Observer: PROTEIN PROTEIN 300.3750 (C) Ketones Ur Ql Strip See Note (NEGATIVE) None Note: [id number] EResponsible Observer: KETONE KETONE 300.3900 (C) Bilirub Ur Ql Strip.auto See Note (NEGATIVE) None Note: [id number] EResponsible Observer: BILIRUBIN BILIRUBIN 300.4550 (C) Glucose Ur Strip.auto-mCnc NEGATIVE (NEGATIVE) None Note: Responsible Observer: GLUCOSE GLUC OSE 300.3850 (C) Appearance Ur See Note (CLEAR) A (Abnormal) Note: TURBIDTURBIDLTURBIDResponsible Obs erver: APPEARANCE APPEARANCE 300.3400 (A) Color Ur See Note None Note: YELLOWYELLOWLYELLOWResponsible Obs erver: COLOR COLOR 300.3330 (A) Leukocyte esterase Ur Ql Strip See Note (NEGATIVE) None Note: [id number]@DO MICR O!!!!A Culture has been added to this specimen per established criteriaResponsible Observer: LEUKOCYTES LEUKOCYTES 300.3576 (C) Nitrite Ur Ql Strip See Note (NEGATIVE) None Note: [id number] EResponsible Observer: NITRITE NITRITE 300.3652 (B) pH [...] are final unless otherwise noted. Urine culture [facility] Ordered by Maya Barron MD [...] are final unless otherwise noted. Reported Physicians [facility] Ordered by Maya Barron MD on 12/23/2020 Collected: 12/23/2020 Reported: 12/24/2020 10:07 Reported Physicians See Note None Note: Reported Physicians:Ordering: Cristino FerreiraAttending: Jos Rivas To: Maya Barron Reviewed by Maya Barron MD on 12/25; All test results are final unless otherwise noted. ADD ON MICROSCOPIC [facility] Ordered by Maya Barron MD on 12/23/2020 Collected: 12/23/2020 Reported: 12/23/2020 08:51 ADD ON MICROSCOPIC See Note (0-5) None Note: NOTES OTHER/NOT INTERPRETED Bacteria UrnS Ql Micro MODERATE AMOUNT Bacteria UrnS Ql Micro MODERATE AMOUNT Bacteria UrnS Ql Micro L Bacteria UrnS Ql Micro Bacteria UrnS Ql Micro Bacteria UrnS Ql Micro Bacteria UrnS Ql Micro [id number] Bacteria UrnS Ql Micro Bacteria UrnS Ql [...] are final unless otherwise noted. Reported Physicians [facility] Ordered by Maya Barron MD on 12/23/2020 Collected: 12/23/2020 Reported: 12/23/2020 08:52 Reported Physicians See Note None Note: Reported Physicians:Ordering: Aj Ferreiraending: Jos Rivas To: Maya Barron Reviewed by Maya Barron MD on 12/25; All test results are final unless otherwise noted. MAGNESIUM [facility] Ordered by Maya Barron MD on 12/23/2020 Collected: 12/23/2020 Reported: 12/23/2020 09:11 Magnesium SerPl-mCnc 2.1 MilliGramsPerDeciLiter_[Mass_Concentration_Units] (1.3-2.7) N (Normal) Note: Responsible Observer: Magnesium Ma gnesium 400.3300 (G) NOTES See Note None Note: ADD-ON Reviewed by Maya Barron MD on 12/25; All test results are final unless otherwise noted. Reported Physicians [facility] Ordered by Maya Barron MD on 12/23/2020 Collected: 12/23/2020 Reported: 12/23/2020 09:11 Reported Physicians See Note None Note: Reported Physicians:Ordering: Aj Ferreiraending: Jos Rivas To: Maya Barron Reviewed by Maya Barron MD on 12/25; All test results are final unless otherwise noted. CBC W AUTO DIFF [facility] Ordered by Maya Barron MD [...] Auto See Note (0-2) N (Normal) Note: 0.60.1V36880137992.6Responsible Ob service observer: IG% IG% 100.1375 (B) Hct VFr Bld [...] test results are final unless otherwise noted. [facility] Ordered by Maya Barron [...] are final unless otherwise noted. Reported Physicians [facility] Ordered by Maya Barron MD on 12/23/2020 Collected: 12/23/2020 Reported: 12/23/2020 08:29 Reported Physicians See Note None Note: Reported Physicians:Ordering: Aj Ferreiraending: Jos Rivas To: Maya Barron Reviewed by Maya Barron MD on 12/25; All test results are final unless otherwise noted. TROPONIN [facility] Ordered by Maya Barron MD [...] are final unless otherwise noted. Reported Physicians [facility] Ordered by Maya Barron MD on 12/23/2020 Collected: 12/23/2020 Reported: 12/23/2020 09:39 Reported Physicians See Note None Note: Reported Physicians:Ordering: Aj Ferreiraending: Jos Rivas To: Maya Barron Reviewed by Maya Barron MD on 12/25; All test results are final unless otherwise noted. D-DIMER [facility] Ordered by Maya Barron MD [...] are final unless otherwise noted. Reported Physicians [facility] Ordered by Maya Barron MD on 12/23/2020 Collected: 12/23/2020 Reported: 12/23/2020 09:39 Reported Physicians See Note None Note: Reported Physicians:Ordering: Cristino FerreiraAttending: Jos Rivas To: Maya Barron Reviewed by Maya Barron MD on 12/25; All test results are final unless otherwise noted. LIPASE SERUM [facility] Ordered by Maya Barron MD on 12/16/2020 Collected: 12/16/2020 Reported: 12/16/2020 16:29 LIPASE 27 U/L (13 - 60) None Note: Responsible Observer: (DW) Reviewed by Maya Barron MD on 12/18; All test results are final unless otherwise noted. Reported Physicians [facility] Ordered by Maya Barron MD on 12/16/2020 Collected: 12/16/2020 Reported: 12/16/2020 16:29 Reported Physicians See Note None Note: Reported Physicians:Ordering: VENUS ALONSOAttending: ALLYN PAPPASConsulting: Rubén BARRON To: Miguel Gonsalez To: ALLYN PAPPAS Reviewed by Maya Barron MD on 12/18; All test results are final unless otherwise noted. TROPONIN T [facility] Ordered by Maya Barron MD on 12/16/2020 Collected: 12/16/2020 Reported: 12/16/2020 16:30 TROPONIN T <0.01 NG/ML (0.00 - 0.10) None Note: TROPONIN T0.1 ng/ml Recommended as the clinical threshold value forTroponin T.Responsible Observer: (ABIOLA) Reviewed by Maya Barron MD on 12/18; All test results are final unless otherwise noted. Reported Physicians [facility] Ordered by Maya Barron MD on 12/16/2020 Collected: 12/16/2020 Reported: 12/16/2020 16:30 Reported Physicians See Note None Note: Reported Physicians:Ordering: VENUS ALONSOAttending: ALLYN PAPPASConsulting: Rubén BARRON To: Miguel Gonsalez To: ALLYN PAPPAS Reviewed by Maya Barron MD on 12/18; All test results are final unless otherwise noted. TSH HIGHLY SENSITIVE [facility] Ordered by Maya Barron MD on 12/16/2020 Collected: 12/16/2020 Reported: 12/16/2020 17:28 TSH 1.41 uIU/mL (0.47 - 5.01) None Note: Responsible Observer: (ABIOLA) Reviewed by Maya Barron MD on 12/18; All test results are final unless otherwise noted. Reported Physicians [facility] Ordered by Maya Barron MD on 12/16/2020 Collected: 12/16/2020 Reported: 12/16/2020 17:28 Reported Physicians See Note None Note: Reported Physicians:Ordering: VENUS ALONSOAttending: Ingrid PAPPAS: Rubén BARRON To: Miguel Gonsalez To: ALLYN PAPPAS Reviewed by Maya Barron MD on 12/18; All test results are final unless otherwise noted. PT/PTT [facility] Ordered by Maya Barron MD on 12/16/2020 Collected: 12/16/2020 Reported: 12/16/2020 16:30 INR 1.07 (0.93 - 1.23) None Note: Responsible Observer: (ABIOLA) PROTIME 14.0 SECONDS (11.0 - 15.5) None [...] are final unless otherwise noted. Reported Physicians [facility] Ordered by Maya Barron MD on 12/16/2020 Collected: 12/16/2020 Reported: 12/16/2020 16:30 Reported Physicians See Note None Note: Reported Physicians:Ordering: Sunshine ALONSOending: ALLYN PAPPASConsulting: Rubén BARRON To: Miguel Gonsalez To: ALLYN PAPPAS Reviewed by Maya Barron MD on 12/18; All test results are final unless otherwise noted. CBC W/AUTOMATED DIFF [facility] Ordered by Maya Barron MD [...] are final unless otherwise noted. Reported Physicians [facility] Ordered by Maya Barron MD on 12/16/2020 Collected: 12/16/2020 Reported: 12/16/2020 16:00 Reported Physicians See Note None Note: Reported Physicians:Ordering: Sunshine ALONSOending: ALLYN PAPPASConsulting: Rubén BARRON To: Miguel Gonsalez To: ALLYN PAPPAS Reviewed by Maya Barron MD on 12/18; All test results are final unless otherwise noted. COMPREHENSIVE METABOLIC PANEL [facility] Ordered by Maya Barron [...] are final unless otherwise noted. Reported Physicians [facility] Ordered by Maya Barron MD on 12/16/2020 Collected: 12/16/2020 Reported: 12/16/2020 16:30 Reported Physicians See Note None Note: Reported Physicians:Ordering: Sunshine ALONSOending: ALLYN PAPPASConsulting: Rubén BARRON To: Miguel Gonsalez To: ALLYN PAPPAS Reviewed by Maya Barron MD on 12/18; All test results are final unless otherwise noted. CBC W AUTO DIFF [facility] Ordered by Maya Barron MD [...] Auto See Note (0-2) N (Normal) Note: [id number] Ob service observer: IG% IG% 100.1375 (B) Hct VFr Bld [...] results are final unless otherwise noted. PT/PTT [facility] Ordered by Maya Barron MD [...] test results are final unless otherwise noted. [facility] Ordered by Maya Barron [...] are final unless otherwise noted. Reported Physicians [facility] Ordered by Maya Barron MD on 12/13/2020 Collected: 12/13/2020 Reported: 12/13/2020 19:02 Reported Physicians See Note None Note: Reported Physicians:Ordering: Edgar Omerttending: Kevin Orozco To: Maya Barron Reviewed by Maya Barron MD on 12/15; All test results are final unless otherwise noted. TSH [facility] Ordered by Maya Barron MD on 12/13/2020 Collected: 12/13/2020 Reported: 12/13/2020 19:02 TSH SerPl DL<=0.005 mIU/L-aCnc 1.02 MicroInternationalUnitsPerMilliLiter_[Arbitrary_Con (0.35-5. 50) N (Normal) Note: Responsible Observer: TSH TSH 600 .7055 (D) Reviewed by Maya Barron MD on 12/15; All test results are final unless otherwise noted. Reported Physicians [facility] Ordered by Maya Barron MD on 12/13/2020 Collected: 12/13/2020 Reported: 12/13/2020 19:02 Reported Physicians See Note None Note: Reported Physicians:Ordering: Edgar Omerttending: Kevin Orozco To: Maya Barron Reviewed by Maya Barron MD on 12/15; All test results are final unless otherwise noted. TROPONIN [facility] Ordered by Maya Barron MD [...] are final unless otherwise noted. Reported Physicians [facility] Ordered by Maya Barron MD on 12/13/2020 Collected: 12/13/2020 Reported: 12/13/2020 19:02 Reported Physicians See Note None Note: Reported Physicians:Ordering: Conchis Omerending: Pir ErnestoetManny To: Maya Barron Reviewed by Maya Barron MD on 12/15; All test results are final unless otherwise noted. UA W/ CULTURE IF ABNORMAL [facility] Ordered by Maya Barron MD on 12/13/2020 Collected: 12/13/2020 Reported: 12/13/2020 18:32 Urobilinogen Ur Ql See Note (0.2-1 EU/dl) None Note: 0.2 EU/dl0.2 EU/[id number] E U/dlResponsible Observer: UROBILINOGEN UROBILINOGEN 300.4500 (C) RBC # Ur Strip NEGATIVE (NEGATIVE) None Note: Responsible Observer: BLOOD BLOOD 300.4652 (C) Prot Ur Ql Strip See Note (NEGATIVE) None Note: [id number] EResponsible Observer: PROTEIN PROTEIN 300.3750 (C) Ketones Ur Ql Strip See Note (NEGATIVE) None Note: [id number] EResponsible Observer: KETONE KETONE 300.3900 (C) Bilirub Ur Ql Strip.auto See Note (NEGATIVE) None Note: [id number] EResponsible Observer: BILIRUBIN BILIRUBIN 300.4550 (C) Glucose Ur Strip.auto-mCnc NEGATIVE (NEGATIVE) None Note: Responsible Observer: GLUCOSE GLUC OSE 300.3850 (C) Appearance Ur See Note (CLEAR) None Note: CLEARCLEARLCLEARResponsible Observ er: APPEARANCE APPEARANCE 300.3400 (A) Color Ur See Note None Note: YELLOWYELLOWLYELLOWResponsible Obs erver: COLOR COLOR 300.3330 (A) Leukocyte esterase Ur Ql Strip See Note (NEGATIVE) None Note: [id number]@DO MICR O!!!!A Culture has been added to this specimen per established criteriaResponsible Observer: LEUKOCYTES LEUKOCYTES 300.3576 (C) Nitrite Ur Ql Strip See Note (NEGATIVE) None Note: [id number] EResponsible Observer: NITRITE NITRITE 300.3652 (B) pH [...] are final unless otherwise noted. Urine culture [facility] Ordered by Maya Barron MD on 12/13/2020 Collected: 12/13/2020 Reported: 12/14/2020 13:24 Bacteria Ur Cult See Note None Note: NGNo growth.L1NG NOTES See Note None Note: @12/13/20 1832: Urine culture adde d. RFLXG = CULT.ADD. Reviewed by Maya Barron MD on 12/15; All test results are final unless otherwise noted. Reported Physicians [facility] Ordered by Maya Barron MD on 12/13/2020 Collected: 12/13/2020 Reported: 12/14/2020 13:24 Reported Physicians See Note None Note: Reported Physicians:Ordering: Conchis Omerending: Kevin Orozco To: Maya Barron Reviewed by Maya Barron MD on 12/15; All test results are final unless otherwise noted. ADD ON MICROSCOPIC [facility] Ordered by Maya Barron MD on 12/13/2020 Collected: 12/13/2020 Reported: 12/13/2020 18:32 ADD ON MICROSCOPIC See Note (0-5) None Note: NOTES OTHER/NOT INTERPRETED Bacteria UrnS Ql Micro MODERATE AMOUNT Bacteria UrnS Ql Micro MODERATE AMOUNT Bacteria UrnS Ql Micro L Bacteria UrnS Ql Micro Bacteria UrnS Ql Micro Bacteria UrnS Ql Micro Bacteria UrnS Ql Micro [id number] Bacteria UrnS Ql Micro Bacteria UrnS Ql [...] are final unless otherwise noted. Reported Physicians [facility] Ordered by Maya Barron MD on 12/13/2020 Collected: 12/13/2020 Reported: 12/13/2020 18:33 Reported Physicians See Note None Note: Reported Physicians:Ordering: Conchis Omerending: Kevin Oroczo To: Maya Barron Reviewed by Maya Barron MD on 12/15; All test results are final unless otherwise noted. TROPONIN T [facility] Ordered by Maya Barron MD on 12/09/2020 Collected: 12/09/2020 Reported: 12/09/2020 01:32 TROPONIN T <0.01 NG/ML (0.00 - 0.10) None Note: TROPONIN T0.1 ng/ml Recommended as the clinical threshold value forTroponin T.Responsible Observer: (AB) Reviewed by Maya Barron MD on 12/12; All test results are final unless otherwise noted. Reported Physicians [facility] Ordered by Maya Barron MD on 12/09/2020 Collected: 12/09/2020 Reported: 12/09/2020 01:32 Reported Physicians See Note None Note: Reported Physicians:Ordering: MARQUISE TOMLINSON CAttending: MARQUISE SOTOConsulting: Rubén BARRON To: MARQUISE SOTOCopyifan To: MARQUISE SOTO Reviewed by Maya Barron MD on 12/12; All test results are final unless otherwise noted. TROPONIN T [facility] Ordered by Maya Barron MD on 12/08/2020 Collected: 12/08/2020 Reported: 12/08/2020 22:36 TROPONIN T <0.01 NG/ML (0.00 - 0.10) None Note: TROPONIN T0.1 ng/ml Recommended as the clinical threshold value forTroponin T.Responsible Observer: (AB) Reviewed by Maya Barron MD on 12/12; All test results are final unless otherwise noted. Reported Physicians [facility] Ordered by Maya Barron MD on 12/08/2020 Collected: 12/08/2020 Reported: 12/08/2020 22:36 Reported Physicians See Note None Note: Reported Physicians:Ordering: MARQUISE TOMLINSON CAttending: MARQUISE SOTOConsulting: Rubén BARRON To: MARQUISE SOTOCopyifan To: MARQUISE SOTO Reviewed by Maya Barron MD on 12/12; All test results are final unless otherwise noted. COMPREHENSIVE METABOLIC PANEL [facility] Ordered by Maya Barron [...] are final unless otherwise noted. Reported Physicians [facility] Ordered by Maya Barron MD on 12/08/2020 Collected: 12/08/2020 Reported: 12/08/2020 22:36 Reported Physicians See Note None Note: Reported Physicians:Ordering: MARQUISE TOMLINSON CAttending: MARQUISE SOTOConsuing: Rubén BARRON To: Clare SOTO To: MARQUISE SOTO Reviewed by Maya Barron MD on 12/12; All test results are final unless otherwise noted. LIPASE SERUM [facility] Ordered by Maya Barron MD on 12/08/2020 Collected: 12/08/2020 Reported: 12/08/2020 22:32 LIPASE 33 U/L (13 - 60) None Note: Responsible Observer: (AB) Reviewed by Maya Barron MD on 12/12; All test results are final unless otherwise noted. Reported Physicians [facility] Ordered by Maya Barron MD on 12/08/2020 Collected: 12/08/2020 Reported: 12/08/2020 22:32 Reported Physicians See Note None Note: Reported Physicians:Ordering: MARQUISE TOMLINSON CAttending: MARQUISE SOTOConconcepcionlting: Rubén BARRON To: Clare SOTO To: MARQUISE SOTO Reviewed by Maya Barron MD on 12/12; All test results are final unless otherwise noted. TROPONIN [facility] Ordered by Maya Barron MD [...] are final unless otherwise noted. Reported Physicians [facility] Ordered by Maya Barron MD on 12/01/2020 Collected: 12/01/2020 Reported: 12/01/2020 18:19 Reported Physicians See Note None Note: Reported Physicians:Ordering: Math is, TimothyAttending: Pardo, TimothyCopy To: Maya Barron Reviewed by Maya Barron MD on 12/04; All test results are final unless otherwise noted. CBC W AUTO DIFF [facility] Ordered by Maya Barron MD [...] Auto See Note (0-2) N (Normal) Note: [id number] Ob service observer: IG% IG% 100.1375 (B) Hct VFr Bld [...] test results are final unless otherwise noted. [facility] Ordered by Maya Barron [...] results are final unless otherwise noted. D-DIMER [facility] Ordered by Maya Barron MD [...] are final unless otherwise noted. Reported Physicians [facility] Ordered by Maya Barron MD on 12/01/2020 Collected: 12/01/2020 Reported: 12/01/2020 18:19 Reported Physicians See Note None Note: Reported Physicians:Ordering: Sara Kaurending: Adam Pardo To: Maya Barron Reviewed by Maya Barron MD on 12/04; All test results are final unless otherwise noted. Cepheid CT/NG RT-PCR [facility] Ordered by Maya Barron MD [...] may result in failure to detect the targetorganisms.87866-1I trach DNA Vag Ql ТАТЬЯНА+probeLNCHLAMNC. trachomatis NOT [id number]. trachomatis NOT [id number] gonorrhoea rRNA Vag Ql ТАТЬЯНА+probeLNNEIGNN.gonorrhoeae NOT OJYMQJIAG0844459102I.gonorrhoeae NOT DETECTED Reviewed by Maya Barron MD on 11/29; All test results are final unless otherwise noted. Reported Physicians [facility] Ordered by Maya Barron MD on 11/29/2020 Collected: 11/29/2020 Reported: 11/29/2020 07:03 Reported Physicians See Note None Note: Reported Physicians:Ordering: Estela SamuelAttending: Vianey Up To: Maya Barron Reviewed by Maya Barron MD on 11/29; All test results are final unless otherwise noted. AFFIRM [facility] Ordered by Maya Barron MD on 11/29/2020 Collected: 11/29/2020 Reported: 11/30/2020 13:21 Dionna species DNA Probe NOT DETECTED (NOT DETECTED) None Note: THIS TEST WAS PERFORMED AT:[facility] [address] [id number] MERATI,CLAUDYesponsible Observer: Dionna DNA Dionna species DNA Probe [id number] 913.2350 ([facility]) Gardnerella DNA Probe DETECTED (NOT DETECTED) H (High) Note: Increased levels of G. vaginalis m ay not be significantin the absence of signs and symptoms of bacterialvaginosis.Responsible Observer: Gardnerella DNA Gardnerella DNA Probe [id number] 913.2345 ([facility]) Trichomonas DNA Probe NOT DETECTED (NOT DETECTED) None Note: Responsible Observer: Trichomonas DNA Trichomonas DNA Probe [id number] 913.2340 ([facility]) Reviewed by Maya Barron MD on 12/01; All test results are final unless otherwise noted. Reported Physicians [facility] Ordered by Maya Barron MD on 11/29/2020 Collected: 11/29/2020 Reported: 11/30/2020 13:21 Reported Physicians See Note None Note: Reported Physicians:Ordering: Ricc ellie, JeanineAttending: Vianey Up To: Maya Barron Reviewed by Maya Barron MD on 12/01; All test results are final unless otherwise noted. UA W/ CULTURE IF ABNORMAL [facility] Ordered by Maya Barron MD on 11/29/2020 Collected: 11/29/2020 Reported: 11/29/2020 04:49 Urobilinogen Ur Ql See Note (0.2-1 EU/dl) None Note: 0.2 EU/dl0.2 EU/ivE01165850857.2 E U/dlResponsible Observer: UROBILINOGEN UROBILINOGEN 300.4500 (C) RBC # Ur Strip NEGATIVE (NEGATIVE) None Note: Responsible Observer: BLOOD BLOOD 300.4652 (C) Prot Ur Ql Strip See Note (NEGATIVE) None Note: [id number] EResponsible Observer: PROTEIN PROTEIN 300.3750 (C) Ketones Ur Ql Strip See Note (NEGATIVE) None Note: [id number] EResponsible Observer: KETONE KETONE 300.3900 (C) Bilirub Ur Ql Strip.auto See Note (NEGATIVE) None Note: [id number] EResponsible Observer: BILIRUBIN BILIRUBIN 300.4550 (C) Glucose Ur Strip.auto-mCnc NEGATIVE (NEGATIVE) None Note: Responsible Observer: GLUCOSE GLUC OSE 300.3850 (C) Appearance Ur See Note (CLEAR) None Note: CLEARCLEARLCLEARResponsible Observ er: APPEARANCE APPEARANCE 300.3400 (A) Color Ur See Note None Note: YELLOWYELLOWLYELLOWResponsible Obs erver: COLOR COLOR 300.3330 (A) Leukocyte esterase Ur Ql Strip See Note (NEGATIVE) None Note: [id number]@DO MICR O!!!!A Culture has been added to this specimen per established criteriaResponsible Observer: LEUKOCYTES LEUKOCYTES 300.3576 (C) Nitrite Ur Ql Strip See Note (NEGATIVE) None Note: [id number] EResponsible Observer: NITRITE NITRITE 300.3652 (B) pH [...] are final unless otherwise noted. Urine culture [facility] Ordered by Maya Barron MD on 11/29/2020 Collected: 11/29/2020 Reported: 11/30/2020 07:23 Bacteria Ur Cult See Note None Note: NGNo growth.L1NG NOTES See Note None Note: @11/29/20 0450: Urine culture adde d. RFLXG = CULT.ADD. Reviewed by Maya Barron MD on 12/01; All test results are final unless otherwise noted. Reported Physicians [facility] Ordered by Maya Barron MD on 11/29/2020 Collected: 11/29/2020 Reported: 11/30/2020 07:23 Reported Physicians See Note None Note: Reported Physicians:Ordering: Estela SamuelAttending: Vianey Up To: Maya Barron Reviewed by Maya Barron MD on 12/01; All test results are final unless otherwise noted. ADD ON MICROSCOPIC [facility] Ordered by Maya Barron MD [...] are final unless otherwise noted. Reported Physicians [facility] Ordered by Maya Barron MD on 11/29/2020 Collected: 11/29/2020 Reported: 11/29/2020 04:51 Reported Physicians See Note None Note: Reported Physicians:Ordering: Estela SamuelAttending: Vianey Up To: Maya Barron Reviewed by Maya Barron MD on 11/29; All test results are final unless otherwise noted. TROPONIN [facility] Ordered by Maya Barron MD [...] are final unless otherwise noted. Reported Physicians [facility] Ordered by Maya Barron MD on 11/20/2020 Collected: 11/20/2020 Reported: 11/20/2020 20:05 Reported Physicians See Note None Note: Reported Physicians:Ordering: Les Vanegas AAttending: Fady Raza To: Maya Barron Reviewed by Maya Barron MD on 11/22; All test results are final unless otherwise noted. Cepheid SARS/FLU/RSV RT-PCR [facility] Ordered by Maya Barron MD [...] by FDA under an EUA for [facility] okbjibyrjlbq87901-1PEQW-kru CoV RNA Resp Ql ТАТЬЯНА+ocsysMBTNFUQQODL-QJG-8 NOT [id number]-URY-9 NOT [id number] RNA Resp Ql ТАТЬЯНА+probeLNNFLUAInfluenza A Not Det [id number] A Not Cjljhopn10977-1ACZOQ RNA Resp Ql ТАТЬЯНА+probeLNNINBInfluenza B Not [id number] B Not [id number]- 2RSV RNA Resp Ql ТАТЬЯНА+probeLNNRSVRSV Not [id number] Not Detected Reviewed by Maya Barron MD on 11/20; All test results are final unless otherwise noted. Reported Physicians [facility] Ordered by Maya Barron MD on 11/18/2020 Collected: 11/18/2020 Reported: 11/18/2020 23:58 Reported Physicians See Note None Note: Reported Physicians:Ordering: Aj Snowending: Cristino CastellanosCopyifan To: Maya Barron Reviewed by Maya Barron MD on 11/20; All test results are final unless otherwise noted. URINE DRUG SCREEN -([facility]) [facility] Ordered by Maya Barron MD on 11/17/2020 Collected: 11/17/2020 Reported: 11/17/2020 14:19 PCP Ur Ql Scn>25 ng/mL See Note (Cutoff 25) None Note: [id number] E@Reenter manual test result: NEGATIVE@by Claudia Tello at 11/17/20 1414.Responsible Observer: PCP Urine Phencyclidine (PCP) Scrn 400.5120 (A) THC Ur Ql Scn>50 ng/mL See Note (Cutoff 50) None Note: [id number] EResponsible Observer: Marijuana (THC) Ur Marijuana (THC) Screen 400.5110 (A) Benzodiaz Ur Ql Scn See Note (Cutoff 150) None Note: [id number] E@Reenter manual test result: NEGATIVE@by Claudia Tello at 11/17/20 1418.Responsible Observer: Benzodiazepines Urine Benzodiazepines Screen 400.5170 (A) Opiates Ur Ql Scn See Note (Cutoff 100) None Note: [id number] E@Reenter manual test result: NEGATIVE@by Claudia Tello at 11/17/20 1418.Responsible Observer: Opiates Urine Opiates Screen 400.5150 (A) Tricyclics Ur Ql Scn See Note (Cutoff 300) None Note: [id number] E@Reenter manual test result: NEGATIVE@by Claudia Tello at 11/17/20 141.Responsible Observer: TCA Ur Tricyclic Antidepressants 400.5180 (A) Cocaine Ur Ql Scn See Note (Cutoff 150) None Note: [id number] E@Reenter manual test result: NEGATIVE@by Claudia Tello at 11/17/20 141.Responsible Observer: Cocaine Urine Cocaine Screen 400.5130 (A) Propoxyph+Nor Ur Ql Scn See Note (Cutoff 300) None Note: [id number] E@Reenter manual test result: NEGATIVE@by Claudia Tello at 11/17/20 141.Responsible Observer: Propoxyphene Urine Propoxyphene Screen 400.5220 (A) Methadone Ur Ql Scn See Note (Cutoff 200) None Note: [id number] E@Reenter manual test result: NEGATIVE@by Claudia Tello at 11/17/20 141.Responsible Observer: Methadone Urine Methadone Screen 400.5190 (A) Methamphet Ur Ql Scn See Note (Cutoff 500) None Note: [id number] E@Reenter manual test result: NEGATIVE@by Claudia Tello at 11/17/20 1417.Responsible Observer: Methamphetamine Urine Methamphetamines Screen 400.5140 (A) oxyCODONE Ur Ql Scn See Note (Cutoff 100) None Note: [id number] E@Reenter manual test result: NEGATIVE@by Claudia Tello at 11/17/20 1418.Responsible Observer: Oxycodone Urine Oxycodone Screen 400.5210 (A) Buprenorphine Ur Ql See Note (Cutoff 10) None Note: [id number] E@Reenter manual test result: NEGATIVE@by Claudia Tello at 11/17/20 1419.Responsible Observer: Buprenorphine Urine Buprenorphine Screen 400.5230 (A) Amphetamines Ur Ql Scn>500 ng/mL See Note (Cutoff 500) None Note: [id number] E@Reenter manual test result: NEGATIVE@by Claudia Tello at 11/17/20 1418.Responsible Observer: Amphetamines Urine Amphetamines Screen 400.5160 (A) Barbiturates Ur Ql Scn>200 ng/mL See Note (Cutoff 200) None Note: [id number] E@Reenter manual test result: NEGATIVE@by Claudia Tello at 11/17/20 1418.Responsible Observer: Barbiturates Urine Barbiturates 400.5200 (A) Reviewed by Maya Barron MD on 11/20; All test results are final unless otherwise noted. IRON [facility] Ordered by Maya Barron MD on 11/17/2020 Collected: 11/17/2020 Reported: 11/17/2020 14:34 Iron SerPl-mCnc 39 (50-170) L (Low) Note: Iron values may be falsely elevate d in serum samples frompatients treated with anticoagulants (e.g., hemodialysispatients)Responsible Observer: Iron Level Iron Level 400.9002 (A) Reviewed by Maya Barron MD on 11/20; All test results are final unless otherwise noted. Reported Physicians [facility] Ordered by Maya Barron MD on 11/17/2020 Collected: 11/17/2020 Reported: 11/17/2020 14:34 Reported Physicians See Note None Note: Reported Physicians:Ordering: Maya AlvarengaAttending: Maya Barron Reviewed by Maya Barron MD on 11/20; All test results are final unless otherwise noted. CBC W AUTO DIFF [facility] Ordered by Maya Barron MD [...] Auto See Note (0-2) N (Normal) Note: [id number] Ob service observer: IG% IG% 100.1375 (B) Hct VFr Bld [...] results are final unless otherwise noted. HA1C [facility] Ordered by aMya Barron MD on 11/17/2020 Collected: 11/17/2020 Reported: [...] blood glucose control.* High risk of developing interactive media specialist complications such asretinopathy, nephropathy, neuropathy, cardiopathy, etc. [...] results are final unless otherwise noted. CMP [facility] Ordered by Maya Barron MD [...] final unless otherwise noted. Vitamin D 25-OH [facility] Ordered by Maya Barron MD [...] VIT D, (D2,D3), LC/MS/MS is recommended: ordercode 64238 (patients >2yrs).See Note 1Note 1For additional information, please refer tohttp://education.Archsy/faq/IFS164(This link is being provided for informational/educational purposes only.)THIS TEST WAS PERFORMED AT:[facility] [place] [address]TERELLGRACE MEANSCLAUDYesponsible Observer: Vitamin D 25-OH Vitamin D 25-Hydroxy [id number] 302.4351 ([facility]) Reviewed by Maya Barron MD on 11/20; All test results are final unless otherwise noted. Reported Physicians [facility] Ordered by Maya Barron MD on 11/17/2020 Collected: 11/17/2020 Reported: 11/18/2020 08:17 Reported Physicians See Note None Note: Reported Physicians:Ordering: Maya AlvarengaAttending: Maya Barron Reviewed by Maya Barron MD on 11/20; All test results are final unless otherwise noted. FREE T4 (LAB) [facility] Ordered by Maya Barron MD on 11/17/2020 Collected: 11/17/2020 Reported: 11/17/2020 14:34 T4 Free SerPl-mCnc 0.78 NanoGramsPerDeciLiter_[Mass_Concentration_Units] (0.89-1.76) L (Low) Note: Responsible Observer: FREE T4 Free Thyroxine 600.7005 (D) Reviewed by Maya Barron MD on 11/20; All test results are final unless otherwise noted. Reported Physicians [facility] Ordered by Maya Barron MD on 11/17/2020 Collected: 11/17/2020 Reported: 11/17/2020 14:34 Reported Physicians See Note None Note: Reported Physicians:Ordering: Maya AlvarengaAttending: Maya Barron Reviewed by Maya Barron MD on 11/20; All test results are final unless otherwise noted. TSH [facility] Ordered by Maya Barron MD on 11/17/2020 Collected: 11/17/2020 Reported: 11/17/2020 14:34 TSH SerPl DL<=0.005 mIU/L-aCnc 1.38 MicroInternationalUnitsPerMilliLiter_[Arbitrary_Con (0.35-5. 50) N (Normal) Note: Responsible Observer: TSH TSH 600 .7055 (D) Reviewed by Maya Barron MD on 11/20; All test results are final unless otherwise noted. Reported Physicians [facility] Ordered by Maya Barron MD on 11/17/2020 Collected: 11/17/2020 Reported: 11/17/2020 14:34 Reported Physicians See Note None Note: Reported Physicians:Ordering: Maya AlvarengaAttending: Maya Barron Reviewed by Maya Barron MD on 11/20; All test results are final unless otherwise noted. TROPONIN [facility] Ordered by Maya Barron MD [...] are final unless otherwise noted. Reported Physicians [facility] Ordered by Maya Barron MD on 10/23/2020 Collected: 10/23/2020 Reported: 10/23/2020 01:03 Reported Physicians See Note None Note: Reported Physicians:Ordering: Yoli NapolesAttending: Charles Silva To: Maya Barron Reviewed by Maya Barron MD on 10/23; All test results are final unless otherwise noted. BH[facility] Quantitative [facility] Ordered by Maya Barron MD on 10/23/2020 Collected: 10/23/2020 Reported: 10/23/2020 01:21 B-HCG SerPl-aCnc 61096 MilliInternationalUnitsPerMilliLiter_[Arbitrary_Con (0-10) H (High) Note: @Instrument will [...] are final unless otherwise noted. Reported Physicians [facility] Ordered by Maya Barron MD on 10/23/2020 Collected: 10/23/2020 Reported: 10/23/2020 01:21 Reported Physicians See Note None Note: Reported Physicians:Ordering: Yoli NapolesAttending: Charles Silva To: Maya Barron Reviewed by Maya Barron MD on 10/23; All test results are final unless otherwise noted. CBC W AUTO DIFF [facility] Ordered by Maya Barron MD [...] Auto See Note (0-2) N (Normal) Note: [id number] Ob service observer: IG% IG% 100.1375 (B) Hct VFr Bld [...] test results are final unless otherwise noted. [facility] Ordered by Maya Barron [...] results are final unless otherwise noted. D-DIMER [facility] Ordered by Maya Barron MD [...] are final unless otherwise noted. Reported Physicians [facility] Ordered by Maya Barron MD on 10/23/2020 Collected: 10/23/2020 Reported: 10/23/2020 01:22 Reported Physicians See Note None Note: Reported Physicians:Ordering: Yoli NapolesAttending: Charles Silva To: Maya Barron Reviewed by Maya Barron MD on 10/23; All test results are final unless otherwise noted. FREE T4 (LAB) [facility] Ordered by Maya Barron MD on 10/21/2020 Collected: 10/21/2020 Reported: 10/21/2020 15:17 T4 Free SerPl-mCnc 0.97 NanoGramsPerDeciLiter_[Mass_Concentration_Units] (0.89-1.76) N (Normal) Note: Responsible Observer: FREE T4 Free Thyroxine 600.7005 (D) Reviewed by Maya Barron MD on 10/23; All test results are final unless otherwise noted. Reported Physicians [facility] Ordered by Maya Barron MD on 10/21/2020 Collected: 10/21/2020 Reported: 10/21/2020 15:17 Reported Physicians See Note None Note: Reported Physicians:Ordering: Tramaine KaurothyAttending: Tramaine PardoothyCopy To: Maya Barron Reviewed by Maya Barron MD on 10/23; All test results are final unless otherwise noted. TSH [facility] Ordered by Maya Barron MD on 10/21/2020 Collected: 10/21/2020 Reported: 10/21/2020 15:17 TSH SerPl DL<=0.005 mIU/L-aCnc 1.40 MicroInternationalUnitsPerMilliLiter_[Arbitrary_Con (0.35-5. 50) N (Normal) Note: Responsible Observer: TSH TSH 600 .7055 (D) Reviewed by Maya Barron MD on 10/23; All test results are final unless otherwise noted. Reported Physicians [facility] Ordered by Maya Barron MD on 10/21/2020 Collected: 10/21/2020 Reported: 10/21/2020 15:17 Reported Physicians See Note None Note: Reported Physicians:Ordering: Tramaine KaurothyAttending: Tramaine PardoothyCopyifan To: Maya Barron Reviewed by Maya Barron MD on 10/23; All test results are final unless otherwise noted. UA W/ CULTURE IF ABNORMAL [facility] Ordered by Maya Barron MD on 10/19/2020 Collected: 10/19/2020 Reported: 10/19/2020 16:31 Urobilinogen Ur Ql See Note (0.2-1 EU/dl) None Note: 0.2 EU/dl0.2 EU/[id number] E U/dlResponsible Observer: UROBILINOGEN UROBILINOGEN 300.4500 (C) RBC # Ur Strip NEGATIVE (NEGATIVE) None Note: Responsible Observer: BLOOD BLOOD 300.4652 (C) Prot Ur Ql Strip See Note (NEGATIVE) None Note: [id number] EResponsible Observer: PROTEIN PROTEIN 300.3750 (C) Ketones Ur Ql Strip See Note (NEGATIVE) None Note: [id number] EResponsible Observer: KETONE KETONE 300.3900 (C) Bilirub Ur Ql Strip.auto See Note (NEGATIVE) None Note: [id number] EResponsible Observer: BILIRUBIN BILIRUBIN 300.4550 (C) Glucose Ur Strip.auto-mCnc 100 mg/dl (NEGATIVE) None Note: Responsible Observer: GLUCOSE GLUC OSE 300.3850 (C) Appearance Ur See Note (CLEAR) None Note: CLEARCLEARLCLEARResponsible Observ er: APPEARANCE APPEARANCE 300.3400 (A) Color Ur See Note None Note: YELLOWYELLOWLYELLOWResponsible Obs erver: COLOR COLOR 300.3330 (A) Leukocyte esterase Ur Ql Strip See Note (NEGATIVE) None Note: [id number] EResponsible Observer: LEUKOCYTES LEUKOCYTES 300.3576 (C) Nitrite Ur Ql Strip See Note (NEGATIVE) None Note: [id number] EResponsible Observer: NITRITE NITRITE 300.3652 (B) pH [...] are final unless otherwise noted. Reported Physicians [facility] Ordered by Maya Barron MD on 10/19/2020 Collected: 10/19/2020 Reported: 10/19/2020 16:31 Reported Physicians See Note None Note: Reported Physicians:Ordering: Les Vanegastending: Fady Raza To: Maya Barron Reviewed by Maya Barron MD on 10/20; All test results are final unless otherwise noted. URINE DRUG SCREEN -([facility]) [facility] Ordered by Maya Barron MD on 10/19/2020 Collected: 10/19/2020 Reported: 10/19/2020 16:40 PCP Ur Ql Scn>25 ng/mL See Note (Cutoff 25) None Note: [id number] E@Reenter manual test result: NEGATIVE@by Jia Lentz at 10/19/20 1639.Responsible Observer: PCP Urine Phencyclidine (PCP) Scrn 400.5120 (A) THC Ur Ql Scn>50 ng/mL See Note (Cutoff 50) None Note: [id number] EResponsible Observer: Marijuana (THC) Ur Marijuana (THC) Screen 400.5110 (A) Benzodiaz Ur Ql Scn See Note (Cutoff 150) None Note: [id number] E@Reenter manual test result: NEGATIVE@by Jia Lentz at 10/19/20 1640.Responsible Observer: Benzodiazepines Urine Benzodiazepines Screen 400.5170 (A) Opiates Ur Ql Scn See Note (Cutoff 100) None Note: [id number] E@Reenter manual test result: NEGATIVE@by Jia Lentz at 10/19/20 1640.Responsible Observer: Opiates Urine Opiates Screen 400.5150 (A) Tricyclics Ur Ql Scn See Note (Cutoff 300) None Note: [id number] E@Reenter manual test result: NEGATIVE@by Jia Lentz at 10/19/20 1640.Responsible Observer: TCA Ur Tricyclic Antidepressants 400.5180 (A) Cocaine Ur Ql Scn See Note (Cutoff 150) None Note: [id number] E@Reenter manual test result: NEGATIVE@by Jia Lentz at 10/19/20 1640.Responsible Observer: Cocaine Urine Cocaine Screen 400.5130 (A) Propoxyph+Nor Ur Ql Scn See Note (Cutoff 300) None Note: [id number] E@Reenter manual test result: NEGATIVE@by Jia Lentz at 10/19/20 1640.Responsible Observer: Propoxyphene Urine Propoxyphene Screen 400.5220 (A) Methadone Ur Ql Scn See Note (Cutoff 200) None Note: [id number] E@Reenter manual test result: NEGATIVE@by Jia Lentz at 10/19/20 1640.Responsible Observer: Methadone Urine Methadone Screen 400.5190 (A) Methamphet Ur Ql Scn See Note (Cutoff 500) None Note: [id number] E@Reenter manual test result: NEGATIVE@by Jia Lentz at 10/19/20 1640.Responsible Observer: Methamphetamine Urine Methamphetamines Screen 400.5140 (A) oxyCODONE Ur Ql Scn See Note (Cutoff 100) None Note: [id number] E@Reenter manual test result: NEGATIVE@by Jia Lentz at 10/19/20 1640.Responsible Observer: Oxycodone Urine Oxycodone Screen 400.5210 (A) Buprenorphine Ur Ql See Note (Cutoff 10) None Note: [id number] E@Reenter manual test result: NEGATIVE@by Jia Lentz at 10/19/20 1640.Responsible Observer: Buprenorphine Urine Buprenorphine Screen 400.5230 (A) Amphetamines Ur Ql Scn>500 ng/mL See Note (Cutoff 500) None Note: [id number] E@Reenter manual test result: NEGATIVE@by Jia Lentz at 10/19/20 1640.Responsible Observer: Amphetamines Urine Amphetamines Screen 400.5160 (A) Barbiturates Ur Ql Scn>200 ng/mL See Note (Cutoff 200) None Note: [id number] E@Reenter manual test result: NEGATIVE@by Jia Lentz at 10/19/20 1640.Responsible Observer: Barbiturates Urine Barbiturates 400.5200 (A) Reviewed by Maya Barron MD on 10/20; All test results are final unless otherwise noted. Reported Physicians [facility] Ordered by Maya Barron MD on 10/19/2020 Collected: 10/19/2020 Reported: 10/19/2020 16:40 Reported Physicians See Note None Note: Reported Physicians:Ordering: Les Vanegas AAtjuan albertoding: Fady Raza To: Maya Barron Reviewed by Maya Barron MD on 10/20; All test results are final unless otherwise noted. TSH w/ reflex to Free T4 [facility] Ordered by Maya Barron MD on 10/19/2020 Collected: 10/19/2020 Reported: 10/19/2020 16:08 TSH SerPl DL<=0.005 mIU/L-aCnc 1.66 MicroInternationalUnitsPerMilliLiter_[Arbitrary_Con (0.35-5. 50) N (Normal) Note: Responsible Observer: TSH TSH 600 .7060 (D) Reviewed by Maya Barron MD on 10/20; All test results are final unless otherwise noted. Reported Physicians [facility] Ordered by Maya Barron MD on 10/19/2020 Collected: 10/19/2020 Reported: 10/19/2020 16:08 Reported Physicians See Note None Note: Reported Physicians:Ordering: Les Vanegas: Fady Raza To: Maya Barron Reviewed by Maya Barron MD on 10/20; All test results are final unless otherwise noted. TROPONIN [facility] Ordered by Maya Barron MD [...] are final unless otherwise noted. Reported Physicians [facility] Ordered by Maya Barron MD on 10/19/2020 Collected: 10/19/2020 Reported: 10/19/2020 16:10 Reported Physicians See Note None Note: Reported Physicians:Ordering: Les Vanegas: Fady Raza To: Maya Barron Reviewed by Maya Barron MD on 10/20; All test results are final unless otherwise noted. [facility] Ordered by Maya Barron [...] unless otherwise noted. CBC W AUTO DIFF [facility] Ordered by Maya Barron MD [...] Auto See Note (0-2) N (Normal) Note: [id number] Ob service observer: IG% IG% 100.1375 (B) Hct VFr Bld [...] are final unless otherwise noted. Reported Physicians [facility] Ordered by Maya Barron MD on 10/19/2020 Collected: 10/19/2020 Reported: 10/19/2020 16:33 Reported Physicians See Note None Note: Reported Physicians:Ordering: Les Vanegasding: Fady Raza To: Maya Barron Reviewed by Maya Barron MD on 10/20; All test results are final unless otherwise noted. CRP, C-REACTIVE PROTEIN [facility] Ordered by Maya Barron MD on 10/19/2020 Collected: 10/19/2020 Reported: 10/19/2020 16:08 CRP SerPl-mCnc 7.5 MilliGramsPerLiter_[Mass_Concentration_Units] (0.0-5.0) H (High) Note: Responsible Observer: CRP C-Reacti ve Protein 401.4355 (H) Reviewed by Maya Barron MD on 10/20; All test results are final unless otherwise noted. SED RATE [facility] Ordered by Maya Barron MD on 10/19/2020 Collected: 10/19/2020 Reported: 10/19/2020 16:32 ESR Bld Qn Westrgrn 22 (0-20) H (High) Note: @Reenter manual test result: 22@by Jai Lentz at 10/19/20 1632.Responsible Observer: SED RATE SED RATE 100.6400 (B) Reviewed by Maya Barron MD on 10/20; All test results are final unless otherwise noted. Reported Physicians [facility] Ordered by Maya Barron MD on 10/19/2020 Collected: 10/19/2020 Reported: 10/19/2020 16:33 Reported Physicians See Note None Note: Reported Physicians:Ordering: Les Vanegastending: Fady Raza To: Maya Barron Reviewed by Maya Barron MD on 10/20; All test results are final unless otherwise noted. PT/PTT [facility] Ordered by Maya Barron MD [...] are final unless otherwise noted. Reported Physicians [facility] Ordered by Maya Barron MD on 10/08/2020 Collected: 10/08/2020 Reported: 10/08/2020 03:22 Reported Physicians See Note None Note: Reported Physicians:Ordering: Sana Recinosending: Sammie Ann To: Maya Barron Reviewed by Maya Barron MD on 10/09; All test results are final unless otherwise noted. CBC W AUTO DIFF [facility] Ordered by Maya Barron MD [...] Auto See Note (0-2) N (Normal) Note: [id number] Ob service observer: IG% IG% 100.1375 (B) Hct VFr Bld [...] results are final unless otherwise noted. MAGNESIUM [facility] Ordered by Maya Barron MD on 10/08/2020 Collected: 10/08/2020 Reported: 10/08/2020 03:17 Magnesium SerPl-mCnc 1.8 MilliGramsPerDeciLiter_[Mass_Concentration_Units] (1.3-2.7) N (Normal) Note: Responsible Observer: Magnesium Ma gnesium 400.3300 (G) Reviewed by Maya Barron MD on 10/09; All test results are final unless otherwise noted. D-DIMER [facility] Ordered by Maya Barron MD [...] are final unless otherwise noted. Reported Physicians [facility] Ordered by Maya Barron MD on 10/08/2020 Collected: 10/08/2020 Reported: 10/08/2020 03:27 Reported Physicians See Note None Note: Reported Physicians:Ordering: Sana Recinosending: Norman Annopy To: Maya Barron Reviewed by Maya Barron MD on 10/09; All test results are final unless otherwise noted. BMP [facility] Ordered by Maya Barron MD [...] are final unless otherwise noted. Reported Physicians [facility] Ordered by Maya Barron MD on 10/08/2020 Collected: 10/08/2020 Reported: 10/08/2020 03:21 Reported Physicians See Note None Note: Reported Physicians:Ordering: Sana Recinosending: Sammie Ann To: Maya Barron Reviewed by Maya Barron MD on 10/09; All test results are final unless otherwise noted. TSH w/ reflex to Free T4 [facility] Ordered by Maya Barron MD on 10/04/2020 Collected: 10/04/2020 Reported: 10/04/2020 17:42 TSH SerPl DL<=0.005 mIU/L-aCnc 1.92 MicroInternationalUnitsPerMilliLiter_[Arbitrary_Con (0.35-5. 50) N (Normal) Note: Responsible Observer: TSH TSH 600 .7060 (D) Reviewed by Maya Barron MD on 10/09; All test results are final unless otherwise noted. Reported Physicians [facility] Ordered by Maya Barron MD on 10/04/2020 Collected: 10/04/2020 Reported: 10/04/2020 17:42 Reported Physicians See Note None Note: Reported Physicians:Ordering: Les Vanegasding: Fady Raza To: Maya Barron Reviewed by Maya Barron MD on 10/09; All test results are final unless otherwise noted. CBC W AUTO DIFF [facility] Ordered by Maya Barron MD [...] Auto See Note (0-2) N (Normal) Note: [id number] Ob service observer: IG% IG% 100.1375 (B) Hct VFr Bld [...] test results are final unless otherwise noted. [facility] Ordered by Maya Barron [...] are final unless otherwise noted. Reported Physicians [facility] Ordered by Maya Barron MD on 10/04/2020 Collected: 10/04/2020 Reported: 10/04/2020 17:42 Reported Physicians See Note None Note: Reported Physicians:Ordering: Les Vanegasding: Fady Raza To: Maya Barron Reviewed by Maya Barron MD on 10/09; All test results are final unless otherwise noted. TROPONIN [facility] Ordered by Maya Barron MD [...] are final unless otherwise noted. Reported Physicians [facility] Ordered by Maya Barron MD on 10/04/2020 Collected: 10/04/2020 Reported: 10/04/2020 17:35 Reported Physicians See Note None Note: Reported Physicians:Ordering: Les Vanegas: Fady Raza To: Maya Barron Reviewed by Maya Barron MD on 10/09; All test results are final unless otherwise noted. SED RATE [facility] Ordered by aMya Barron MD on 10/04/2020 Collected: 10/04/2020 Reported: 10/04/2020 18:05 ESR Bld Qn Westrgrn 16 (0-20) N (Normal) Note: [facility]: [facility]@by Jia Lentz at 10/04/20 1805.Responsible Observer: SED RATE SED RATE 100.6400 (B) Reviewed by Maya Barron MD on 10/09; All test results are final unless otherwise noted. Reported Physicians [facility] Ordered by Myaa Barron MD on 10/04/2020 Collected: 10/04/2020 Reported: 10/04/2020 18:06 Reported Physicians See Note None Note: Reported Physicians:Ordering: Les Vanegas: Les RazaCopyifan To: Maya Barron Reviewed by Maya Barron MD on 10/09; All test results are final unless otherwise noted. FREE T4 (LAB) [facility] Ordered by Maya Barron MD on 10/03/2020 Collected: 10/03/2020 Reported: 10/03/2020 20:08 T4 Free SerPl-mCnc 0.97 NanoGramsPerDeciLiter_[Mass_Concentration_Units] (0.89-1.76) N (Normal) Note: Responsible Observer: FREE T4 Free Thyroxine 600.7005 (D) Reviewed by Maya Barron MD on 10/04; All test results are final unless otherwise noted. Reported Physicians [facility] Ordered by Maya Barron MD on 10/03/2020 Collected: 10/03/2020 Reported: 10/03/2020 20:08 Reported Physicians See Note None Note: Reported Physicians:Ordering: Yoli NapolesAttending: oYli SilvaCopy To: Maya Barron Reviewed by Maya Barron MD on 10/04; All test results are final unless otherwise noted. [facility] Quantitative [facility] [facility] Ordered by Maya Barron MD on 10/03/2020 Collected: 10/03/2020 Reported: 10/03/2020 20:23 B-HCG SerPl-aCnc 59111 MilliInternationalUnitsPerMilliLiter_[Arbitrary_Con (0-10) H (High) Note: @Instrument will [...] are final unless otherwise noted. Reported Physicians [facility] Ordered by Maya Barron MD on 10/03/2020 Collected: 10/03/2020 Reported: 10/03/2020 20:23 Reported Physicians See Note None Note: Reported Physicians:Ordering: Yoli NapolesAttending: Charles Silva To: Maya Barron Reviewed by Maya Barron MD on 10/04; All test results are final unless otherwise noted. TROPONIN [facility] Ordered by Maya Barron MD [...] are final unless otherwise noted. Reported Physicians [facility] Ordered by Maya Barron MD on 10/03/2020 Collected: 10/03/2020 Reported: 10/03/2020 20:07 Reported Physicians See Note None Note: Reported Physicians:Ordering: Yoli NapolesAttending: Charles Silva To: Maya Barron Reviewed by Maya Barron MD on 10/04; All test results are final unless otherwise noted. MANUAL DIFF [facility] Ordered by Maya Barron MD [...] are final unless otherwise noted. Reported Physicians [facility] Ordered by Maya Barron MD on 10/03/2020 Collected: 10/03/2020 Reported: 10/03/2020 19:56 Reported Physicians See Note None Note: Reported Physicians:Ordering: Yoli NapolesAttending: Yoli SilvaCopy To: Maya Barron Reviewed by Maya Barron MD on 10/04; All test results are final unless otherwise noted. CBC W AUTO DIFF [facility] Ordered by Maya Barron MD [...] Auto See Note (0-2) N (Normal) Note: [id number] Ob service observer: IG% IG% 100.1375 (B) Hct VFr Bld [...] 100.1360 (B) NOTES See Note None Note: @10/03/201947: MANUAL DIFF added. RFLXG = DIFF. Reviewed by Maya Barron MD on 10/04; All test results are final unless otherwise noted. [facility] Ordered by Maya Barron [...] are final unless otherwise noted. Reported Physicians [facility] Ordered by Maya Barron MD on 10/03/2020 Collected: 10/03/2020 Reported: 10/03/2020 20:03 Reported Physicians See Note None Note: Reported Physicians:Ordering: Yoli NapolesAttending: Charles Silva To: Maya Barron Reviewed by Maya Barron MD on 10/04; All test results are final unless otherwise noted. UA W/ CULTURE IF ABNORMAL [facility] Ordered by Maya Barron MD on 10/03/2020 Collected: 10/03/2020 Reported: 10/03/2020 19:52 Urobilinogen Ur Ql See Note (0.2-1 EU/dl) None Note: 0.2 EU/dl0.2 EU/[id number] E U/dlResponsible Observer: UROBILINOGEN UROBILINOGEN 300.4500 (C) RBC # Ur Strip NEGATIVE (NEGATIVE) None Note: Responsible Observer: BLOOD BLOOD 300.4652 (C) Prot Ur Ql Strip See Note (NEGATIVE) None Note: [id number] EResponsible Observer: PROTEIN PROTEIN 300.3750 (C) Ketones Ur Ql Strip See Note (NEGATIVE) None Note: [id number] EResponsible Observer: KETONE KETONE 300.3900 (C) Bilirub Ur Ql Strip.auto See Note (NEGATIVE) None Note: [id number] EResponsible Observer: BILIRUBIN BILIRUBIN 300.4550 (C) Glucose Ur Strip.auto-mCnc NEGATIVE (NEGATIVE) None Note: Responsible Observer: GLUCOSE GLUC OSE 300.3850 (C) Appearance Ur See Note (CLEAR) None Note: CLEARCLEARLCLEARResponsible Observ er: APPEARANCE APPEARANCE 300.3400 (A) Color Ur See Note None Note: YELLOWYELLOWLYELLOWResponsible Obs erver: COLOR COLOR 300.3330 (A) Leukocyte esterase Ur Ql Strip See Note (NEGATIVE) None Note: [id number]@DO MICR O!!!!A Culture has been added to this specimen per established criteriaResponsible Observer: LEUKOCYTES LEUKOCYTES 300.3576 (C) Nitrite Ur Ql Strip See Note (NEGATIVE) None Note: [id number] EResponsible Observer: NITRITE NITRITE 300.3652 (B) pH [...] Reason for ordering culture: Abnor mal findings UA@10/03/20 194: UA W/ MICRO added. RFLXG = UMIC CIF.Method of Collection:: Voided Reviewed by Maya Barron MD on 10/04; All test results are final unless otherwise noted. Urine culture [facility] Ordered by Maya Barron MD on 10/03/2020 Collected: 10/03/2020 Reported: 10/04/2020 13:10 Bacteria Ur Cult See Note None Note: NGNo growth.L1NG NOTES See Note None Note: @10/03/201951: Urine culture adde d. RFLXG = CULT.ADD. Reviewed by Maya Barron MD on 10/04; All test results are final unless otherwise noted. Reported Physicians [facility] Ordered by Maya Barron MD on 10/03/2020 Collected: 10/03/2020 Reported: 10/04/2020 13:10 Reported Physicians See Note None Note: Reported Physicians:Ordering: Yoli NapolesAttending: Charles Silva To: Maya Barron Reviewed by Maya Barron MD on 10/04; All test results are final unless otherwise noted. ADD ON MICROSCOPIC [facility] Ordered by Maya Barron MD on 10/03/2020 Collected: 10/03/2020 Reported: 10/03/2020 19:52 ADD ON MICROSCOPIC See Note (0-5) None Note: NOTES OTHER/NOT INTERPRETED Bacteria UrnS Ql Micro SMALL AMOUNT Bacteria UrnS Ql Micro SMALL AMOUNT Bacteria UrnS Ql Micro L Bacteria UrnS Ql Micro Bacteria UrnS Ql Micro Bacteria UrnS Ql Micro Bacteria UrnS Ql Micro [id number] Bacteria UrnS Ql Micro Bacteria UrnS Ql Micro SMALL AMOUNT Cells UrnS Micro FEW Cells UrnS Micro FEW Cells UrnS Micro FEW Cells UrnS Micro L Cells UrnS Micro Cells UrnS Micro Cells UrnS Micro Cells UrnS Micro Cells UrnS Micro WBC # Ur Manual 1-2 Reason for ordering culture: Abnormal findings UA@10/03/20 1941: UA W/ MICRO added. RFLXG = IC CIF.Method of Collection:: VoidedResponsible Observer: WBC WBC 300.5005 (A) Reviewed by Maya Barron MD on 10/04; All test results are final unless otherwise noted. Reported Physicians [facility] Ordered by Maya Barron MD on 10/03/2020 Collected: 10/03/2020 Reported: 10/03/2020 19:52 Reported Physicians See Note None Note: Reported Physicians:Ordering: Yoli NapolesAttending: Charles Silva To: Maya Barron Reviewed by Maya Barron MD on 10/04; All test results are final unless otherwise noted. TROPONIN [facility] Ordered by Maya Barron MD [...] are final unless otherwise noted. Reported Physicians [facility] Ordered by Maya Barron MD on 09/18/2020 Collected: 09/18/2020 Reported: 09/18/2020 20:10 Reported Physicians See Note None Note: Reported Physicians:Ordering: Yoli NapolesAttending: Charles Silva To: Maya Barron Reviewed by Maya Barron MD on 09/20; All test results are final unless otherwise noted. CBC W AUTO DIFF [facility] Ordered by Maya Barron MD [...] Auto See Note (0-2) N (Normal) Note: [id number] Ob service observer: IG% IG% 100.1375 (B) Hct VFr Bld [...] test results are final unless otherwise noted. [facility] Ordered by Maya Barron [...] are final unless otherwise noted. Reported Physicians [facility] Ordered by Maya Barron MD on 09/18/2020 Collected: 09/18/2020 Reported: 09/18/2020 20:10 Reported Physicians See Note None Note: Reported Physicians:Ordering: Yoli NapolesAttending: Charles Silva To: Maya Barron Reviewed by Maya Barron MD on 09/20; All test results are final unless otherwise noted. BHCG, QUANTITATIVE [facility] Ordered by Maya Barron MD on 09/18/2020 Collected: 09/18/2020 Reported: 09/18/2020 20:21 [facility] 254111 MilliInternationalUnitsPerMilliLiter_[Arbitrary_Con (0-10) H (High) Note: APPROXIMATE GESTATION [...] are final unless otherwise noted. Reported Physicians [facility] Ordered by Maya Barron MD on 09/18/2020 Collected: 09/18/2020 Reported: 09/18/2020 20:22 Reported Physicians See Note None Note: Reported Physicians:Ordering: Cliff Napolesending: Charles Silva To: Maya Barron Reviewed by Maya Barron MD on 09/20; All test results are final unless otherwise noted. Urine culture [facility] Ordered by Cat Gutierrez RPA on 09/11/2020 Collected: 09/11/2020 Reported: 09/12/2020 13:11 Bacteria Ur Cult See Note None Note: NGNo growth.L1NG NOTES See Note None Note: GEORGIANA PICKARD IN OTHER NAME IN MEDICAL RECORD Reviewed by Cat Gutierrez RPA on 09/12; All test results are final unless otherwise noted. Reported Physicians [facility] Ordered by Cat Gutierrez RPA on 09/11/2020 Collected: 09/11/2020 Reported: 09/12/2020 13:11 Reported Physicians See Note None Note: Reported Physicians:Ordering: Cat ConwayAttending: Cat Gutierrez Reviewed by Cat Gutierrez RPA on 09/12; All test results are final unless otherwise noted. UA W/ CULTURE IF ABNORMAL [facility] Ordered by Maya Barron MD on 09/10/2020 Collected: 09/10/2020 Reported: 09/10/2020 17:48 Urobilinogen Ur Ql See Note (0.2-1 EU/dl) None Note: 0.2 EU/dl0.2 EU/[id number] E U/dlResponsible Observer: UROBILINOGEN UROBILINOGEN 300.4500 (C) RBC # Ur Strip NEGATIVE (NEGATIVE) None Note: Responsible Observer: BLOOD BLOOD 300.4652 (C) Prot Ur Ql Strip See Note (NEGATIVE) None Note: [id number] EResponsible Observer: PROTEIN PROTEIN 300.3750 (C) Ketones Ur Ql Strip See Note (NEGATIVE) None Note: [id number] ble Observer: KETONE KETONE 300.3900 (C) Bilirub Ur Ql Strip.auto See Note (NEGATIVE) None Note: [id number] EResponsible Observer: BILIRUBIN BILIRUBIN 300.4550 (C) Glucose Ur Strip.auto-mCnc NEGATIVE (NEGATIVE) None Note: Responsible Observer: GLUCOSE GLUC OSE 300.3850 (C) Appearance Ur See Note (CLEAR) None Note: CLEARCLEARLCLEARResponsible Observ er: APPEARANCE APPEARANCE 300.3400 (A) Color Ur See Note None Note: YELLOWYELLOWLYELLOWResponsible Obs erver: COLOR COLOR 300.3330 (A) Leukocyte esterase Ur Ql Strip See Note (NEGATIVE) None Note: [id number] EResponsible Observer: LEUKOCYTES LEUKOCYTES 300.3576 (C) Nitrite Ur Ql Strip See Note (NEGATIVE) None Note: [id number] EResponsible Observer: NITRITE NITRITE 300.3652 (B) pH [...] are final unless otherwise noted. Reported Physicians [facility] Ordered by Maya Barron MD on 09/10/2020 Collected: 09/10/2020 Reported: 09/10/2020 17:48 Reported Physicians See Note None Note: Reported Physicians:Ordering: Les Vanegas: Fady Raza To: Maya Barron Reviewed by Maya Barron MD on 09/11; All test results are final unless otherwise noted. ABO/Rh Type [facility] Ordered by Maya Barron MD on 09/10/2020 Collected: 09/10/2020 Reported: 09/10/2020 15:43 Blood bank studies Yes None Note: Responsible Observer: Prev. Histor y? Previous History? 100.0800 (A) Blood Type See Note None Note: OPO PositiveLResponsible Observer: Blood Type Blood Type 110.0950 (C) Reviewed by Maya Barron MD on 09/11; All test results are final unless otherwise noted. Reported Physicians [facility] Ordered by Maya Barron MD on 09/10/2020 Collected: 09/10/2020 Reported: 09/10/2020 15:43 Reported Physicians See Note None Note: Reported Physicians:Ordering: Les Vanegas: Fady Raza To: Maya Barron Reviewed by Maya Barron MD on 09/11; All test results are final unless otherwise noted. BHCG, QUANTITATIVE [facility] Ordered by Maya Barron MD on 09/10/2020 Collected: 09/10/2020 Reported: 09/10/2020 15:48 B-HCG [facility] [place] [address] MilliInternationalUnitsPerMilliLiter_[Arbitrary_Con (0-10) H (High) Note: @Instrument will [...] are final unless otherwise noted. Reported Physicians [facility] Ordered by Maya Barron MD on 09/10/2020 Collected: 09/10/2020 Reported: 09/10/2020 15:49 Reported Physicians See Note None Note: Reported Physicians:Ordering: Les Vanegasding: Fady Raza To: Maya Barron Reviewed by Maya Barron MD on 09/11; All test results are final unless otherwise noted. COVID [facility] Ordered by Maya Barron MD [...] findings,re- testing should be considered in consultation with[facility] authorities. Laboratory test results shouldalways be considered in the context of clinicalobservations and epidemiological data in making a finaldiagnosis and patient management decisions.Please review the "Fact Sheets" and FDA authorizedlabeling available for health care providers andpatients using the following websites:https://www.[employer] .[employer]/home/Covid-19/HCP/NAAT/fact-wbbjo8rcikh://www.[employer]/home/Cov id-19/Patients/NAAT/fact-vjfih2Ystu test has been authorized by the FDA under anEmergency Use Authorization (EUA) for use by authorizedlaboratories.Due to the current public health emergency, [facility] is receiving a high volume of samples [...] information about COVID-19 can be foundat the [facility] website:www.[facility]/Covid19.THIS TEST WAS PERFORMED AT:[facility] [id number] ONEILLesponsible Observer: COVID-19 COVID-19 ТАТЬЯНА (SARS-CoV-2) [id number] 914.7910 ([facility]) Reviewed by Maya Barron MD on 08/25; All test results are final unless otherwise noted. Reported Physicians [facility] Ordered by Maya Barron MD on 08/23/2020 Collected: 08/23/2020 Reported: 08/25/2020 03:57 Reported Physicians See Note None Note: Reported Physicians:Ordering: Sana Recinosending: Sammie Ann To: Maya Barron Reviewed by Maya Barron MD on 08/25; All test results are final unless otherwise noted. Rapid St[facility] Ordered by Maya Barron MD on 08/15/2020 [address] [place], [address] Collected: 08/15/2020 Reported: 08/15/2020 11:47 tel :[phone] strep antigen normal (negative) N (Normal) Reviewed by Maya Barron MD on 08/15; All test results are final unless otherwise noted. Urinalysis w/out microscopy [facility] Ordered by Maya Barron MD on 08/15/2020 [address] [place], [address] Specimen Source: Urine Collected: 08/15/2020 Reporte d: 08/15/2020 11:03 tel:[phone] bilirubin normal (neg) N (Normal) blood normal [...] unless otherwise noted. Extended hours FLU/COV2 NAAT [facility] Ordered by Myaa Barron MD on 08/15/2020 Collected: 08/15/2020 Reported: 08/15/2020 15:55 Extended hours FLU/COV2 NAAT See Note None Note: TNPNo Reportable ResultLTNPNo Repo rtable AnibybN9MMZ NOTES See Note None Note: GEORGIANA PICKARD IN OTHER NAME IN MEDICAL RECORD Reviewed by Maya Barron MD on 08/16; All test results are final unless otherwise noted. Reported Physicians [facility] Ordered by Maya Barron MD on 08/15/2020 Collected: 08/15/2020 Reported: 08/15/2020 15:55 Reported Physicians See Note None Note: Reported Physicians:Ordering: Maya AlvarengaAttending: Maya Barron Reviewed by Maya Barron MD on 08/16; All test results are final unless otherwise noted. Sweta Raquel SARS/FLU [facility] Ordered by Maya Barron MD on 08/15/2020 Collected: 08/15/2020 Reported: 08/15/2020 15:55 Sweta Raquel SARS/FLU See Note None Note: Sweta Raquel is a rapid, automated q ualitative anddifferentiation of Influenza type A,B and RMOI-COV-9HYYD-RT-PCR testNORMAL VALUE IS "NOT DETECTED".Limitations of the sweta raquel Influenza A/B & YYWO-TTH-8hfpkc method.Modifications to manufacturers recommendation and proceduresmay alter performance of the test.Negative results do not preclude Influenza A,B or SARS- RDJ7uznclcbajx and should not be used as the [...] out diseases caused by other bacterialor viral pathogens.60129-3IAAH-asa CoV RNA Resp Ql ТАТЬЯНА+probeLNNSARS SARS-COV-2 NOT [id number]-KGF-3 NOT YJSVJGKS70192-5XBPKK RNA Resp Ql ТАТЬЯНА+probeLNNFLUAInfluenza A Not [id number] A Not Ubpfrspf84548-2ZUHZF RNA Resp Ql ТАТЬЯНА+probeLNNINBInfluenza B Not ResbmloaQ8808807481Dcgfsgytw B Not Detected NOTES See Note None Note: GEORGIANA PICKARD IN OTHER NAME IN MEDICAL RECORD Reviewed by Maya Barron MD on 08/18; All test results are final unless otherwise noted. Throat culture [facility] Ordered by Maya Barron MD on 08/15/2020 Collected: 08/15/2020 Reported: 08/17/2020 06:37 Throat culture results Normal Deisy None Reviewed by Maya Barron MD on 08/18; All test results are final unless otherwise noted. Reported Physicians [facility] Ordered by Maya Barron MD on 08/15/2020 Collected: 08/15/2020 Reported: 08/17/2020 06:37 Reported Physicians See Note None Note: Reported Physicians:Ordering: Maya AlvarengaAttending: Maya Barron Reviewed by Maya Barron MD on 08/18; All test results are final unless otherwise noted. HPVI [facility] Ordered by Cat Gutierrez RPA on 08/09/2020 Collected: 08/09/2020 Reported: 08/15/2020 06:53 Thin Prep Vag See Note None Note: See scanned reportSee scanned repo rtLSee scanned reportResponsible Observer: TP w/HPV if ASC Thinprep w/HPV if ASCUS 805.1454 ([facility]) NOTES See Note None Note: ZPJ05-17Cynxidionc Technique: BRUS H-SPATULABody Site: CERVIX Reviewed by Cat Gutierrez RPA on 08/15; All test results are final unless otherwise noted. Reported Physicians [facility] Ordered by Cat Gutierrez RPA on 08/09/2020 Collected: 08/09/2020 Reported: 08/15/2020 06:53 Reported Physicians See Note None Note: Reported Physicians:Ordering: Atte nding: Rigo Gutierrez To: Maya Barron Reviewed by Cat Gutierrez RPA on 08/15; All test results are final unless otherwise noted. GCAMP [facility] Ordered by Cat Gutierrez RPA on 08/09/2020 Collected: 08/09/2020 Reported: 08/11/2020 06:52 C trach rRNA XXX Ql ТАТЬЯНА+probe See Note (NOT DETECTED) None Note: NOT DETECTEDNOT [id number] 6NOT DETECTEDResponsible Observer: C.Trach RNA Chlamydia trachomatis DNA-ТАТЬЯНА 05204566 913.9900 ([facility]) N gonorrhoea rRNA XXX Ql ТАТЬЯНА+probe See Note (NOT DETECTED) None Note: NOT DETECTEDNOT [id number] 6NOT DETECTEDResponsible Observer: GC RNA Neisseria gonorrhoeae DNA -ТАТЬЯНА [id number] 913.9905 ([facility]) Chlamydia/GC DNA Note SEE NOTE None Note: The analytical performance charact eristics of thisassay, when used to test SurePath(TM) specimens have beendetermined by [facility]. The modifications havenot been cleared or approved by the FDA. This assay hasbeen validated pursuant to the CLIA regulations and isused for clinical purposes.For additional information, please refer tohttps://education.[employer]/faq/NZA064(This link is being provided for information/educational purposes only.)THIS TEST WAS PERFORMED AT:[facility] [address]OSEAS MEANSMDResponsible Observer: GC/Chlam Note Chlamydia/GC DNA Note [id number] 913.9907 (A) NOTES See Note None Note: PICKARD:IN OTHER NAME IN MEDICAL RECORD Reviewed by Cat Gutierrez RPA on 08/12; All test results are final unless otherwise noted. Reported Physicians [facility] Ordered by Cat Gutierrez RPA on 08/09/2020 Collected: 08/09/2020 Reported: 08/11/2020 06:52 Reported Physicians See Note None Note: Reported Physicians:Ordering: Atte nding: Cat GutierrezCopyifan To: Maya Barron Reviewed by Cat Gutierrez RPA on 08/12; All test results are final unless otherwise noted. AFFIRM [facility] Ordered by Cat Gutierrez RPA on 08/09/2020 Collected: 08/09/2020 Reported: 08/11/2020 06:52 Dionna species DNA Probe NOT DETECTED (NOT DETECTED) None Note: THIS TEST WAS PERFORMED AT:[facility] [address]VVQJED MERATI,MDResponsible Observer: Dionna DNA Dionna species DNA Probe [id number] 913.0747 ([facility]) Gardnerella DNA Probe DETECTED (NOT DETECTED) H (High) Note: Increased levels of G. vaginalis m ay not be significantin the absence of signs and symptoms of bacterialvaginosis.Responsible Observer: Gardnerella DNA Gardnerella DNA Probe [id number] 913.2344 ([facility]) Trichomonas DNA Probe NOT DETECTED (NOT DETECTED) None Note: Responsible Observer: Trichomonas DNA Trichomonas DNA Probe 11828245 073.2343 ([facility]) NOTES See Note None Note: PICKARD:IN OTHER NAME IN MEDICAL RECORD Reviewed on 08/11/2020; All test result s are final unless otherwise noted. Reported Physicians [facility] Ordered by Cat Gutierrez RPA on 08/09/2020 Collected: 08/09/2020 Reported: 08/11/2020 06:52 Reported Physicians See Note None Note: Reported Physicians:Ordering: Atte nding: Rigo Gutierrez To: Maya Barron Reviewed on 08/11/2020; All test result s are final unless otherwise noted. URINALYSIS [facility] Ordered by Cat Gutierrez RPA on 08/09/2020 Collected: 08/09/2020 Reported: 08/09/2020 12:23 Urobilinogen Ur Ql See Note (0.2-1 EU/dl) None Note: 1 EU/dl1 EU/[id number] EU/dlRe sponsible Observer: UROBILINOGEN UROBILINOGEN 300.4500 (C) RBC # Ur Strip NEGATIVE (NEGATIVE) None Note: Responsible Observer: BLOOD BLOOD 300.4650 (C) Prot Ur Ql Strip See Note (NEGATIVE) None Note: [id number] ble Observer: PROTEIN PROTEIN 300.3750 (C) Ketones Ur Ql Strip See Note (NEGATIVE) None Note: [id number] ble Observer: KETONE KETONE 300.3900 (C) Bilirub Ur Ql Strip.auto See Note (NEGATIVE) None Note: [id number] EResponsible Observer: BILIRUBIN BILIRUBIN 300.4550 (C) Glucose Ur Strip.auto-mCnc NEGATIVE (NEGATIVE) None Note: Responsible Observer: GLUCOSE GLUC OSE 300.3850 (C) Appearance Ur See Note (CLEAR) None Note: CLEARCLEARLCLEARResponsible Observ er: APPEARANCE APPEARANCE 300.3400 (A) Color Ur See Note None Note: DARK YELLOWDARK YELLOWLDARK YELLOW Responsible Observer: COLOR COLOR 300.3300 (A) Leukocyte esterase Ur Ql Strip See Note (NEGATIVE) None Note: [id number]@DO MICR O!!!!Responsible Observer: LEUKOCYTES LEUKOCYTES 300.3575 (C) Nitrite Ur Ql Strip See Note (NEGATIVE) None Note: [id number] EResponsible Observer: NITRITE NITRITE 300.3650 (B) pH [...] are final unless otherwise noted. Urine culture [facility] Ordered by Cat Gutierrez RPA on 08/09/2020 Collected: 08/09/2020 Reported: 08/10/2020 08:33 Bacteria Ur Cult See Note None Note: NGNo growth.L1NG Reviewed by Cat Gutierrez RPA on 08/14; All test results are final unless otherwise noted. MEDMATCH [facility] Ordered by Cat Gutierrez [facility] on 08/09/2020 Collected: 08/09/2020 Reported: 08/13/2020 15:56 MEDMATCH See scanned report None Note: Responsible Observer: MEDMATCH MED MATCH 910.19480 ([facility]) Reviewed by Cat Gutierrez RPA on 08/14; All test results are final unless otherwise noted. Reported Physicians [facility] Ordered by Cat Gutierrez RPA on 08/09/2020 Collected: 08/09/2020 Reported: 08/13/2020 15:56 Reported Physicians See Note None Note: Reported Physicians:Ordering: Attchandler barton: Rigo Gutierrez To: Maya Barron Reviewed by Cat Gutierrez RPA on 08/14; All test results are final unless otherwise noted. ADD ON MICROSCOPIC [facility] Ordered by Cat Gutierrez RPA on 08/09/2020 Collected: 08/09/2020 Reported: 08/09/2020 12:23 ADD ON MICROSCOPIC See Note (0-5) H (High) Note: NOTES OTHER/NOT INTERPRETED Bacteria UrnS Ql Micro SMALL AMOUNT Bacteria UrnS Ql Micro SMALL AMOUNT Bacteria UrnS Ql Micro L Bacteria UrnS Ql Micro Bacteria UrnS Ql Micro Bacteria UrnS Ql Micro Bacteria UrnS Ql Micro [id number] Bacteria UrnS Ql Micro Bacteria UrnS Ql [...] Ql Micro Mucous Threads UrnS Ql Micro [id number] Mucous Threads UrnS Ql Micro Mucous Threads UrnS Ql Micro MODERATE AMOUNT WBC # Ur Manual 5-8 @08/09/20 1210: UA W/ MICRO added. RFLXG = UMIC.Method of Collection:: Clean CatchResponsible Observer: WBC WBC 300.5000 (A) Reviewed by Cat Gutierrez RPA on 08/12; All test results are final unless otherwise noted. Reported Physicians [facility] Ordered by Cat Gutierrez RPA on 08/09/2020 Collected: 08/09/2020 Reported: 08/10/2020 17:47 Reported Physicians See Note None Note: Reported Physicians:Ordering: Attchandler barton: Rigo Gutierrez To: Maya Barron Reviewed by Cat Gutierrez RPA on 08/12; All test results are final unless otherwise noted. CBC [facility] Ordered by Cat Gutierrez RPA [...] Auto See Note (0-2) N (Normal) Note: [id number] Ob service observer: IG% IG% 100.1375 (B) Hct VFr Bld [...] results are final unless otherwise noted. TSH [facility] Ordered by Cat Gutierrez RPA on 08/09/2020 Collected: 08/09/2020 Reported: 08/09/2020 14:24 TSH SerPl DL<=0.005 mIU/L-aCnc 1.18 MicroInternationalUnitsPerMilliLiter_[Arbitrary_Con (0.35-5. 50) N (Normal) Note: Responsible Observer: TSH TSH 600 .7055 (D) Reviewed by Cat Gutierrez RPA on 08/14; All test results are final unless otherwise noted. Lead (Venous) Wh.Bld [facility] Ordered by Cat Gutierrez RPA on 08/09/2020 Collected: 08/09/2020 Reported: 08/10/2020 17:47 Lead Bld-sCnc <1 (<5) None Note: See Note 1Note 1This test was faith granados and its analytical performancecharacteristics have been determined by [employer]. It has not been cleared or approved by theA. This assay has been validated pursuant to the CLIAregulations and is used for clinical purposes.THIS TEST WAS PERFORMED AT:[facility] [id number] ONEILLesponsible Observer: Lead, WB Lead, Whole Blood [id number] 911.2190 ([facility]) NOTES See Note None Note: Patient Street Address: [address] [place] [address] [address]Patient [place]: [place] [facility] Zip Code: [id number] Reviewed by Cat Gutierrez RPA on 08/14; All test results are final unless otherwise noted. ncPN REF [facility] Ordered by Cat Gutierrez RPA on 08/09/2020 Collected: 08/09/2020 Reported: 08/13/2020 15:26 T pallidum Ab Ser Ql Aggl See Note (Nonreactive) None Note: [id number] onreactiveResponsible Observer: TP-PA Treponema pallidum Ab (TP-PA) [id number] 908.3566 ([facility]) HIV1 RNA SerPl Ql ТАТЬЯНА+probe See Note None Note: TNPNo Reportable ResultLTNPNo Repo rtable ResultLLEP.LIVENTNPResponsible Observer: HIV 1 RNA, QL T HIV 1 RNA, QL TMA [id number] 908.0254 ([facility]) HBV surface Ag SerPl Ql IA See Note (NON-REACTIVE) None Note: [id number]-CFPHXBODFCR-[id number] 5NON-REACTIVEResponsible Observer: HBSAG Hepatitis B Surface Antigen [id number] 910.2004 ([facility]) RUBV IgG SerPl IA-aCnc 1.76 None Note: Index Interpretatio n ----- <0.90 Not consistent with immunity 0.90-0.99 Equivocal > or = 1.00 Consistent with immunityThe presence of rubella IgG antibody suggestsimmunization or past or current infection withrubella virus.THIS TEST WAS PERFORMED AT:[facility] [address]JUEXHXCLAUDY ONEILLesponsible Observer: Rubella IgG Ab Rubella IgG Ab [id number] 911.2840 ([facility]) HIV1 Ab SerPlBld Ql IA.rapid See Note None Note: TNPNo Reportable ResultLTNPNo Repo rtable ResultLLEP.LIVENTNPResponsible Observer: HIV 1 AB HIV 1 AB [id number] 908.0250 ([facility]) HBsAg Confirmation See Note None Note: TNPNo Reportable ResultLTNPNo Repo rtable ResultLLEP.LIVENTNPResponsible Observer: HBsAg Confirm HBsAg Confirmation [id number] 910.2006 ([facility]) HIV (1&2) Screen, 4th Gen [...] for this purpose.For additional information please refer tohttp://education.OnVantage/faq/VJE821(This link is being provided for informational/educational purposes only.)The performance of this assay has not been clinicallyvalidated in patients less than 2 years old.THIS TEST WAS PERFORMED AT:[facility]OSEAS MEANS,MDResponsible Observer: HIV ABS HIV (1&2) Screen, 4th Gen [id number] 908.0228 ([facility]) Reviewed by Cat Gutierrez RPA on 08/14; All test results are final unless otherwise noted. Reported Physicians [facility] Ordered by Cat Gutierrez RPA on 08/09/2020 Collected: 08/09/2020 Reported: 08/13/2020 15:27 Reported Physicians See Note None Note: Reported Physicians:Ordering: Atte nding: Rigo Gutierrez To: Maya Barron Reviewed by Cat Gutierrez RPA on 08/14; All test results are final unless otherwise noted. HCV RFX ТАТЬЯНА [facility] Ordered by Cat Gutierrez RPA on 08/09/2020 Collected: 08/09/2020 Reported: 08/10/2020 17:47 HCV Ab Ser Ql See Note (NON-REACTIVE) None Note: [id number]-[id number] 7NON-REACTIVEResponsible Observer: HEP C ANTIBODY Hepatitis C Antibody [id number] 914.8305 ([facility]) HCV RNA Qualitative (ТАТЬЯНА) 0.54 (<1.00) None Note: HCV antibody was non-reactive. The re is no laboratoryevidence of HCV infection.In most cases, no further action is required. However,if recent HCV exposure is suspected, a test for HCV RNA(test code 92139) is suggested.For additional information please refer tohttp://[employer].OnVantage/faq/NDK84s2(This link is being provided for informational/educational purposes only.)THIS TEST WAS PERFORMED AT:[facility] [id number] MEANS,MDResponsible Observer: SIG TO C/O SIGNAL TO CUTOFF [id number] 914.8335 ([facility]) NOTES See Note None Note: Patient Street Address: [facility] [address]Patient City: [place] [facility] Zip Code: [address]Xotcfvj Reviewed by Cat Gutierrez RPA on 08/12; All test results are final unless otherwise noted. Reported Physicians [facility] Ordered by Cat Gutierrez RPA on 08/09/2020 Collected: 08/09/2020 Reported: 08/10/2020 17:47 Reported Physicians See Note None Note: Reported Physicians:Ordering: Atte nding: Rigo Gutierrez To: Maya Barron Reviewed by Cat Gutierrez RPA on 08/12; All test results are final unless otherwise noted. Type and Screen [facility] Ordered by Cat Gutierrez RPA [...] are final unless otherwise noted. Reported Physicians [facility] Ordered by Cat Gutierrez RPA on 08/09/2020 Collected: 08/09/2020 Reported: 08/09/2020 12:39 Reported Physicians See Note None Note: Reported Physicians:Ordering: Cat ConwayAttending: Rigo Gutierrez To: Maya Barron Reviewed by Cat Gutierrez RPA on 08/10; All test results are final unless otherwise noted. Varicella-Zoster IgG Antibody [facility] Ordered by Cat Gutierrez RPA [...] Antibody Immunity Screen, ACIF.THIS TEST WAS PERFORMED AT:[facility] [address]EDTLYL ME RATI,MDResponsible Observer: VARICELLA IGG Varicella-Zoster IgG Antibody [id number] 919.8960 ([facility]) NOTES See Note None Note: Patient Street Address: [address] [place] [address] [address]Patient City: [place] [facility] Zip Code: [address]Wtmuubo Reviewed by Cat Gutierrez RPA on 08/12; All test results are final unless otherwise noted. BHCG, QUANTITATIVE [facility] Ordered by Cat Gutierrez RPA on 08/08/2020 Collected: 08/08/2020 Reported: 08/08/2020 11:53 B-HCG [facility] [place] [address] MilliInternationalUnitsPerMilliLiter_[Arbitrary_Con (0-10) H (High) Note: @Instrument will [...] are final unless otherwise noted. Reported Physicians [facility] Ordered by Cat Gutierrez RPA on 08/08/2020 Collected: 08/08/2020 Reported: 08/08/2020 11:54 Reported Physicians See Note None Note: Reported Physicians:Ordering: Jannet valentineing: Rigo Gutierrez To: Maya Barron Reviewed by Cat Gutierrez RPA on 08/08; All test results are final unless otherwise noted. Type and Screen [facility] Ordered by Cat Gutierrez RPA [...] give date): N Reviewed by Cat Gutierrez [facility] on 08/01; All test results are final unless otherwise noted. Reported Physicians [facility] Ordered by Cat Gutierrez [facility] on 08/01/2020 Collected: 08/01/2020 Reported: 08/01/2020 06:03 Reported Physicians See Note None Note: Reported Physicians:Ordering: Aj Ferreiraending: Jos Rivas To: Maya Barron Reviewed by Cat Gutierrez [facility] on 08/01; All test results are final unless otherwise noted. BHCG, QUANTITATIVE [facility] Ordered by Cat Gutierrez [facility] on 08/01/2020 Collected: 08/01/2020 Reported: 08/01/2020 02:26 B-[facility]CG [facility] [address] MilliInternationalUnitsPerMilliLiter_[Arbitrary_Con (0-10) H (High) Note: @Instrument will [...] are final unless otherwise noted. Reported Physicians [facility] Ordered by Cat Gutierrez RPA on 08/01/2020 Collected: 08/01/2020 Reported: 08/01/2020 02:26 Reported Physicians See Note None Note: Reported Physicians:Ordering: Aj Ferreiraending: Jos Rivas To: Maya Barron Reviewed by Cat Gutierrez RPA on 08/01; All test results are final unless otherwise noted. CBC W AUTO DIFF [facility] Ordered by Cat Gutierrez RPA [...] Auto See Note (0-2) N (Normal) Note: [id number] Ob service observer: IG% IG% 100.1375 (B) Hct VFr Bld [...] test results are final unless otherwise noted. [facility] Ordered by Cat Gutierrez RPA on [...] are final unless otherwise noted. Reported Physicians [facility] Ordered by Cat Gutierrez RPA on 08/01/2020 Collected: 08/01/2020 Reported: 08/01/2020 02:26 Reported Physicians See Note None Note: Reported Physicians:Ordering: Aj Ferreiraending: Jos Rivas To: Maya Barron Reviewed by Cat Gutierrez RPA on 08/01; All test results are final unless otherwise noted. ADD ON MICROSCOPIC [facility] Ordered by Cat Gutierrez RPA on 08/01/2020 Collected: 08/01/2020 Reported: 08/01/2020 01:01 ADD ON MICROSCOPIC See Note (0-5) None Note: NOTES OTHER/NOT INTERPRETED Bacteria UrnS Ql Micro MODERATE AMOUNT Bacteria UrnS Ql Micro MODERATE AMOUNT Bacteria UrnS Ql Micro L Bacteria UrnS Ql Micro Bacteria UrnS Ql Micro Bacteria UrnS Ql Micro Bacteria UrnS Ql Micro [id number] Bacteria UrnS Ql Micro Bacteria UrnS Ql [...] are final unless otherwise noted. Reported Physicians [facility] Ordered by Cat Gutierrez RPA on 08/01/2020 Collected: 08/01/2020 Reported: 08/01/2020 01:01 Reported Physicians See Note None Note: Reported Physicians:Ordering: Aj Ferreiraending: Jos Rivas To: Maya Barron Reviewed by Cat Gutierrez RPA on 08/01; All test results are final unless otherwise noted. UA W/ CULTURE IF ABNORMAL [facility] Ordered by Cat Gutierrez RPA on 08/01/2020 Collected: 08/01/2020 Reported: 08/01/2020 01:01 Urobilinogen Ur Ql See Note (0.2-1 EU/dl) None Note: 0.2 EU/dl0.2 EU/[id number] E U/dlResponsible Observer: UROBILINOGEN UROBILINOGEN 300.4500 (C) RBC # Ur Strip SMALL (NEGATIVE) None Note: @DO MICRO!!!!Responsible Observer: BLOOD BLOOD 300.4652 (C) Prot Ur Ql Strip See Note (NEGATIVE) None Note: [id number] EResponsible Observer: PROTEIN PROTEIN 300.3750 (C) Ketones Ur Ql Strip See Note (NEGATIVE) None Note: 15 mg/dL15 mg/[id number] mg/d LResponsible Observer: KETONE KETONE 300.3900 (C) Bilirub Ur Ql Strip.auto See Note (NEGATIVE) None Note: [id number] EResponsible Observer: BILIRUBIN BILIRUBIN 300.4550 (C) Glucose Ur Strip.auto-mCnc NEGATIVE (NEGATIVE) None Note: Responsible Observer: GLUCOSE GLUC OSE 300.3850 (C) Appearance Ur See Note (CLEAR) None Note: CLEARCLEARLCLEARResponsible Observ er: APPEARANCE APPEARANCE 300.3400 (A) Color Ur See Note None Note: YELLOWYELLOWLYELLOWResponsible Obs erver: COLOR COLOR 300.3330 (A) Leukocyte esterase Ur Ql Strip See Note (NEGATIVE) None Note: [id number]@DO MICR O!!!!A Culture has been added to this specimen per established criteriaResponsible Observer: LEUKOCYTES LEUKOCYTES 300.3576 (C) Nitrite Ur Ql Strip See Note (NEGATIVE) None Note: [id number] EResponsible Observer: NITRITE NITRITE 300.3652 (B) pH [...] are final unless otherwise noted. Urine culture [facility] Ordered by Cat Gutierrez RPA on 08/01/2020 Collected: 08/01/2020 Reported: 08/02/2020 07:41 Urine culture result See Note None Note: Greater than 100,000 CFU/MLLactoba cilli no senst done NOTES See Note None Note: @08/01/20 0101: Urine culture adde d. RFLXG = CULT.ADD. Reviewed by Cat Gutierrez RPA on 08/02; All test results are final unless otherwise noted. Reported Physicians [facility] Ordered by Cat Gutierrez RPA on 08/01/2020 Collected: 08/01/2020 Reported: 08/02/2020 07:41 Reported Physicians See Note None Note: Reported Physicians:Ordering: Aj Ferreiraending: Cristino RivasCopyifan To: Maya Barron Reviewed by Cat Gutierrez RPA on 08/02; All test results are final unless otherwise noted. BHCG, QUANTITATIVE [facility] Ordered by Cat Gutierrez RPA on 07/31/2020 Collected: 07/31/2020 Reported: 07/31/2020 16:53 B-HCG SerPl-aCnc [address] MilliInternationalUnitsPerMilliLiter_[Arbitrary_Con (0-10) H (High) Note: @Instrument will [...] are final unless otherwise noted. Reported Physicians [facility] Ordered by Cat Gutierrez RPA on 07/31/2020 Collected: 07/31/2020 Reported: 07/31/2020 16:53 Reported Physicians See Note None Note: Reported Physicians:Ordering: Atte memeing: Cat Gutierrez Reviewed by Cat Gutierrez RPA on 08/01; All test results are final unless otherwise noted. UA W/ CULTURE IF ABNORMAL [facility] Ordered by Cat Gutierrez RPA on 07/27/2020 Collected: 07/27/2020 Reported: 07/27/2020 21:36 Urobilinogen Ur Ql See Note (0.2-1 EU/dl) None Note: 0.2 EU/dl0.2 EU/[id number] E U/dlResponsible Observer: UROBILINOGEN UROBILINOGEN 300.4500 (C) RBC # Ur Strip NEGATIVE (NEGATIVE) None Note: Responsible Observer: BLOOD BLOOD 300.4652 (C) Prot Ur Ql Strip See Note (NEGATIVE) None Note: [id number] EResponsible Observer: PROTEIN PROTEIN 300.3750 (C) Ketones Ur Ql Strip See Note (NEGATIVE) None Note: [id number] EResponsible Observer: KETONE KETONE 300.3900 (C) Bilirub Ur Ql Strip.auto See Note (NEGATIVE) None Note: [id number] EResponsible Observer: BILIRUBIN BILIRUBIN 300.4550 (C) Glucose Ur Strip.auto-mCnc NEGATIVE (NEGATIVE) None Note: Responsible Observer: GLUCOSE GLUC OSE 300.3850 (C) Appearance Ur See Note (CLEAR) None Note: CLEARCLEARLCLEARResponsible Observ er: APPEARANCE APPEARANCE 300.3400 (A) Color Ur See Note None Note: YELLOWYELLOWLYELLOWResponsible Obs erver: COLOR COLOR 300.3330 (A) Leukocyte esterase Ur Ql Strip See Note (NEGATIVE) None Note: [id number]@DO MICR O!!!!A Culture has been added to this specimen per established criteriaResponsible Observer: LEUKOCYTES LEUKOCYTES 300.3576 (C) Nitrite Ur Ql Strip See Note (NEGATIVE) None Note: [id number] EResponsible Observer: NITRITE NITRITE 300.3652 (B) pH [...] CIF.Method of Collection:: Voided Reviewed by Cat Brenda [facility] on 07/31; All test results are final unless otherwise noted. Urine culture [facility] on 07/27/2020 Collected: 07/27/2020 Reported: 07/29/2020 07:36 Urine culture result 50,000 CFU/ML Lactobacilli no senst done None NOTES See Note None Note: @07/27/202136: Urine culture flavia sawyer RFLXG = CULT.ADD. Reviewed by Cat Gutierrez [facility] on 07/31; All test results are final unless otherwise noted. Reported Physicians [facility] Or[facility] Cat [facility] on 07/27/2020 Collected: 07/27/2020 Reported: 07/29/2020 07:37 Reported Physicians See Note None Note: Reported Physicians:Ordering: Daquan BustamanteAttending: Daquan GoodCopyifan To: Maya Barron Reviewed by Cat [facility] on 07/31; All test results are final unless otherwise noted. ADD ON MICROSCOPIC [facility] Ordered by Cat Gutierrez RPA on 07/27/2020 Collected: 07/27/2020 Reported: 07/27/2020 21:36 ADD ON MICROSCOPIC See Note (0-5) None Note: NOTES OTHER/NOT INTERPRETED Bacteria UrnS Ql Micro SMALL AMOUNT Bacteria UrnS Ql Micro SMALL AMOUNT Bacteria UrnS Ql Micro L Bacteria UrnS Ql Micro Bacteria UrnS Ql Micro Bacteria UrnS Ql Micro Bacteria UrnS Ql Micro [id number] Bacteria UrnS Ql Micro Bacteria UrnS Ql Micro SMALL AMOUNT Cells UrnS Micro MODERATE Cells UrnS Micro MODERATE Cells UrnS Micro MODERATE Cells UrnS Micro L Cells UrnS Micro Cells UrnS Micro Cells UrnS Micro Cells UrnS Micro Cells UrnS Micro WBC # Ur Manual OCCASIONAL Reason for ordering culture: Abnormal findings UA@07/27/202117: UA W/ MICRO added. RFLXG = IC CIF.Method of Collection:: VoidedResponsible Observer: WBC WBC 300.5005 (A) Reviewed by Cat Gutierrez RPA on 07/28; All test results are final unless otherwise noted. Reported Physicians [facility] Ordered by Cat Gutierrez RPA on 07/27/2020 Collected: 07/27/2020 Reported: 07/27/2020 21:37 Reported Physicians See Note None Note: Reported Physicians:Ordering: Daquan BustamanteAttending: Ariella Good To: Maya Barron Reviewed by Cat Gutierrez RPA on 07/28; All test results are final unless otherwise noted. CMP [facility] Ordered by Cta Gutierrez RPA on 07/27/2020 Collected: 07/27/2020 Reported: [...] are final unless otherwise noted. Reported Physicians [facility] Ordered by Cat Gutierrez RPA on 07/27/2020 Collected: 07/27/2020 Reported: 07/27/2020 20:37 Reported Physicians See Note None Note: Reported Physicians:Ordering: Daquan BustamanteAttending: Ariella Good To: Maya Barron Reviewed by Cat Gutierrez RPA on 07/28; All test results are final unless otherwise noted. Type and Screen [facility] Ordered by Cat Gutierrez RPA [...] are final unless otherwise noted. Reported Physicians [facility] Ordered by Cat Gutierrez RPA on 07/27/2020 Collected: 07/27/2020 Reported: 07/27/2020 20:48 Reported Physicians See Note None Note: Reported Physicians:Ordering: Daquan BustamanteAttending: Ariella Good To: Maya Barron Reviewed by Cat Gutierrez RPA on 07/28; All test results are final unless otherwise noted. CBC W AUTO DIFF [facility] Ordered by Cat Gutierrez RPA [...] Auto See Note (0-2) N (Normal) Note: [id number] Ob service observer: IG% IG% 100.1375 (B) Hct VFr Bld [...] are final unless otherwise noted. Reported Physicians [facility] Ordered by Cat Gutierrez RPA on 07/27/2020 Collected: 07/27/2020 Reported: 07/27/2020 20:11 Reported Physicians See Note None Note: Reported Physicians:Ordering: Daquan BustamanteAttending: Ariella Good To: Maya Barron Reviewed by Cat Gutierrez RPA on 07/28; All test results are final unless otherwise noted. BHCG, QUANTITATIVE [facility] Ordered by Cat Gutierrez RPA on 07/27/2020 Collected: 07/27/2020 Reported: 07/27/2020 22:08 B-HCG [facility] [address] MilliInternationalUnitsPerMilliLiter_[Arbitrary_Con (0-10) H (High) Note: @Instrument [...] are final unless otherwise noted. Reported Physicians [facility] Ordered by Cat Gutierrez RPA on 07/27/2020 Collected: 07/27/2020 Reported: 07/27/2020 22:08 Reported Physicians See Note None Note: Reported Physicians:Ordering: Daquan BustamanteAttending: Ariella Good To: Maya Barron Reviewed by Cat Gutierrez RPA on 07/28; All test results are final unless otherwise noted. BHCG, QUANTITATIVE [facility] Ordered by Maya Barron MD [...] are final unless otherwise noted. Reported Physicians [facility] Ordered by Maya Barron MD on 07/26/2020 Collected: 07/26/2020 Reported: 07/26/2020 16:48 Reported Physicians See Note None Note: Reported Physicians:Ordering: Maya AlvarengaAttending: Maya Barron Reviewed by Maya Barron MD on 07/27; All test results are final unless otherwise noted. Sweta Raquel SARS/FLU [facility] Ordered by Bandar Cleveland PA-C on 07/25/2020 Collected: 07/25/2020 Reported: 07/25/2020 18:47 Sweta Raquel SARS/FLU See Note None Note: Sweta Raquel is a rapid, automated q ualitative anddifferentiation of Influenza type A,B and FENO-VVV-9MZMO-RT-PCR testNORMAL VALUE IS "NOT DETECTED".Limitations of the sweta raquel Influenza A/B & HPJP-CHV-9fdoeu method.Modifications to manufacturers recommendation and proceduresmay alter performance of the test.Negative results do not preclude Influenza A,B or SARS- GMD0obctqyjttm and should not be used as the [...] out diseases caused by other bacterialor viral pathogens.75342-7RSNM-PhP-3 RNA Resp Ql ТАТЬЯНА+probeLNNOSNo O rganisms [id number] Organisms Detected Reviewed by Bandar Cleveland PA-C on 1; All test results are final unless otherwise noted. Reported Physicians [facility] Ordered by Bandar Cleveland PA-C on 07/25/2020 Collected: 07/25/2020 Reported: 07/25/2020 18:47 Reported Physicians See Note None Note: Reported Physicians:Ordering: Janice Wilsonending: Kami Cleveland To: Health, Public Reviewed by Bandar Cleveland PA-C on 1; All test results are final unless otherwise noted. Extended hours FLU/COV2 NAAT [facility] Ordered by Bandar Cleveland PA-C on 07/25/2020 Collected: 07/25/2020 Reported: 07/25/2020 18:47 Extended hours FLU/COV2 NAAT See Note None Note: TNPNo Reportable ResultLTNPNo Repo rtable KofiedX2VCN Reviewed by Bandar Cleveland PA-C on 1; All test results are final unless otherwise noted. Reported Physicians [facility] Ordered by Bandar Cleveland PA-C on 07/25/2020 Collected: 07/25/2020 Reported: 07/25/2020 18:47 Reported Physicians See Note None Note: Reported Physicians:Ordering: Janice Wilsonending: Kami Cleveland To: Health, Public Reviewed by Bandar Cleveland PA-C on ; All test results are final unless otherwise noted. CBC W AUTO DIFF [facility] Ordered by Maya Barron MD [...] Auto See Note (0-2) N (Normal) Note: [id number] Ob service observer: IG% IG% 100.1375 (B) Hct VFr Bld [...] test results are final unless otherwise noted. [facility] Ordered by Maya Barron [...] are final unless otherwise noted. Reported Physicians [facility] Ordered by Maya Barron MD on 07/22/2020 Collected: 07/22/2020 Reported: 07/22/2020 02:00 Reported Physicians See Note None Note: Reported Physicians:Ordering: Dominic Landaverdeending: Alon Douglas To: Maya Barron Reviewed by Maya Barron MD on 07/24; All test results are final unless otherwise noted. Sweta Raquel SARS/FLU [facility] Ordered by Maya Barron MD on 07/22/2020 Collected: 07/22/2020 Reported: 07/22/2020 01:29 Sweta Raquel SARS/FLU See Note None Note: Sweta Raquel is a rapid, automated q ualitative anddifferentiation of Influenza type A,B and MSTB-REF-5PUSA-RT-PCR testNORMAL VALUE IS "NOT DETECTED".Limitations of the sweta raquel Influenza A/B & HLVQ-JIJ-5iwzbp method.Modifications to manufacturers recommendation and proceduresmay alter performance of the test.Negative results do not preclude Influenza A,B or SARS- AUJ4jmezsmwyyh and should not be used as the [...] out diseases caused by other bacterialor viral pathogens.95581-3BJKT-OmT-4 RNA Resp Ql ТАТЬЯНА+probeLNNOSNo O rganisms [id number] Organisms Detected Reviewed by Maya Barron MD on 07/24; All test results are final unless otherwise noted. Reported Physicians [facility] Ordered by Maya Barron MD on 07/22/2020 Collected: 07/22/2020 Reported: 07/22/2020 01:29 Reported Physicians See Note None Note: Reported Physicians:Ordering: Hong LandaverdeAttending: Alon Douglas To: Maya Barron Reviewed by Maya Barron MD on 07/24; All test results are final unless otherwise noted. UA W/ CULTURE IF ABNORMAL [facility] Ordered by Maya Barron MD on 07/22/2020 Collected: 07/22/2020 Reported: 07/22/2020 01:10 Urobilinogen Ur Ql See Note (0.2-1 EU/dl) None Note: 0.2 EU/dl0.2 EU/ruR59567174523.2 E U/dlResponsible Observer: UROBILINOGEN UROBILINOGEN 300.4500 (C) RBC # Ur Strip NEGATIVE (NEGATIVE) None Note: Responsible Observer: BLOOD BLOOD 300.4652 (C) Prot Ur Ql Strip See Note (NEGATIVE) None Note: [id number] EResponsible Observer: PROTEIN PROTEIN 300.3750 (C) Ketones Ur Ql Strip See Note (NEGATIVE) None Note: [id number] EResponsible Observer: KETONE KETONE 300.3900 (C) Bilirub Ur Ql Strip.auto See Note (NEGATIVE) None Note: [id number] EResponsible Observer: BILIRUBIN BILIRUBIN 300.4550 (C) Glucose Ur Strip.auto-mCnc NEGATIVE (NEGATIVE) None Note: Responsible Observer: GLUCOSE GLUC OSE 300.3850 (C) Appearance Ur See Note (CLEAR) None Note: CLEARCLEARLCLEARResponsible Observ er: APPEARANCE APPEARANCE 300.3400 (A) Color Ur See Note None Note: YELLOWYELLOWLYELLOWResponsible Obs erver: COLOR COLOR 300.3330 (A) Leukocyte esterase Ur Ql Strip See Note (NEGATIVE) None Note: [id number] EResponsible Observer: LEUKOCYTES LEUKOCYTES 300.3576 (C) Nitrite Ur Ql Strip See Note (NEGATIVE) None Note: [id number] EResponsible Observer: NITRITE NITRITE 300.3652 (B) pH [...] are final unless otherwise noted. Reported Physicians [facility] Ordered by Maya Barron MD on 07/22/2020 Collected: 07/22/2020 Reported: 07/22/2020 01:11 Reported Physicians See Note None Note: Reported Physicians:Ordering: Hong LandaverdeAttending: Alon Douglas To: Maya Barron Reviewed by Maya Barron MD on 07/24; All test results are final unless otherwise noted. Extended hours FLU/COV2 NAAT [facility] Ordered by Maya Barron MD on 07/22/2020 Collected: 07/22/2020 Reported: 07/22/2020 01:29 Extended hours FLU/COV2 NAAT See Note None Note: TNPNo Reportable ResultLTNPNo Repo rtable [id number] Reviewed by Maya Barron MD on 07/24; All test results are final unless otherwise noted. Reported Physicians [facility] Ordered by Maya Barron MD on 07/22/2020 Collected: 07/22/2020 Reported: 07/22/2020 01:29 Reported Physicians See Note None Note: Reported Physicians:Ordering: Hong LandaverdeAttending: Alon Douglas To: Maya Barron Reviewed by Maya Barron MD on 07/24; All test results are final unless otherwise noted. Urine culture [facility] Ordered by Maya Barron MD on 07/19/2020 Collected: 07/19/2020 Reported: 07/21/2020 07:48 Bacteria Ur Cult See Note None Note: NGNo growth.L1NG Reviewed by Maya Barron MD on 07/21; All test results are final unless otherwise noted. Reported Physicians [facility] Ordered by Maya Barron MD on 07/19/2020 Collected: 07/19/2020 Reported: 07/21/2020 07:49 Reported Physicians See Note None Note: Reported Physicians:Ordering: Maya AlvarengaAttending: Maya Barron Reviewed by Maya Barron MD on 07/21; All test results are final unless otherwise noted. BHCG, QUANTITATIVE [facility] Ordered by Maya Barron MD [...] are final unless otherwise noted. Reported Physicians [facility] Ordered by Maya Barron MD on 07/17/2020 Collected: 07/17/2020 Reported: 07/17/2020 12:40 Reported Physicians See Note None Note: Reported Physicians:Ordering: Maya AlvarengaAttending: Maya Barron Reviewed by Maya Barron MD on 07/17; All test results are final unless otherwise noted. CUEVAS COVID-19 S[employer]OL [facility] Ordered by Maya Barron MD [...] molecular test, if the virus mutates in [facility], Covid-19 may not be detected or may bedetected less predictably.ID NOW COVID-19 is intended for testing a swab directlywithout elution in viral transport media as dilution willresult in decreased detection of low positive samples thatare near the limit of detection of the test.SWAB SAMPLES ELUTED IN VTM ARE NOT APPROPRIATE FOR USE INTHIS TEST.NOSNo Organisms [id number] Organisms Detected Reviewed by Maya Barron MD on 05/31; All test results are final unless otherwise noted. Reported Physicians [facility] Ordered by Maya Barron MD on 05/31/2020 Collected: 05/31/2020 Reported: 05/31/2020 07:08 Reported Physicians See Note None Note: Reported Physicians:Ordering: Johnny HernándezAttending: Suzanne Cazares To: Maya Barron Reviewed by Maya Barron MD on 05/31; All test results are final unless otherwise noted. BHCG, QUANTITATIVE [facility] Ordered by Maya Barron MD on 05/26/2020 Collected: 05/26/2020 Reported: 05/26/2020 14:49 B-HCG [facility] [place] [address] MilliInternationalUnitsPerMilliLiter_[Arbitrary_Con (0-10) H (High) Note: @Instrument will [...] are final unless otherwise noted. Reported Physicians [facility] Ordered by Maya Barron MD on 05/26/2020 Collected: 05/26/2020 Reported: 05/26/2020 14:50 Reported Physicians See Note None Note: Reported Physicians:Ordering: Maya AlvarengaAttending: Maya Barron Reviewed by Maya Barron MD on 05/26; All test results are final unless otherwise noted. URINALYSIS [facility] Ordered by Maya Barron MD on 05/23/2020 Collected: 05/23/2020 Reported: 05/23/2020 17:19 Urobilinogen Ur Ql See Note (0.2-1 EU/dl) None Note: 0.2 EU/dl0.2 EU/[id number] E U/dlResponsible Observer: UROBILINOGEN UROBILINOGEN 300.4500 (C) RBC # Ur Strip NEGATIVE (NEGATIVE) None Note: Responsible Observer: BLOOD BLOOD 300.4650 (C) Prot Ur Ql Strip See Note (NEGATIVE) None Note: [id number] EResponsible Observer: PROTEIN PROTEIN 300.3750 (C) Ketones Ur Ql Strip See Note (NEGATIVE) None Note: [id number] EResponsible Observer: KETONE KETONE 300.3900 (C) Bilirub Ur Ql Strip.auto See Note (NEGATIVE) None Note: [id number] EResponsible Observer: BILIRUBIN BILIRUBIN 300.4550 (C) Glucose Ur Strip.auto-mCnc NEGATIVE (NEGATIVE) None Note: Responsible Observer: GLUCOSE GLUC OSE 300.3850 (C) Appearance Ur See Note (CLEAR) None Note: CLEARCLEARLCLEARResponsible Observ er: APPEARANCE APPEARANCE 300.3400 (A) Color Ur See Note None Note: YELLOWYELLOWLYELLOWResponsible Obs erver: COLOR COLOR 300.3300 (A) Leukocyte esterase Ur Ql Strip See Note (NEGATIVE) None Note: [id number] EResponsible Observer: LEUKOCYTES LEUKOCYTES 300.3575 (C) Nitrite Ur Ql Strip See Note (NEGATIVE) None Note: [id number] EResponsible Observer: NITRITE NITRITE 300.3650 (B) pH [...] are final unless otherwise noted. Urine culture [facility] Ordered by Maya Barron MD on 05/23/2020 Collected: 05/23/2020 Reported: 05/24/2020 09:24 Bacteria Ur Cult See Note None Note: NGNo growth.L1NG Reviewed by Maya Barron MD on 05/29; All test results are final unless otherwise noted. MEDMATCH [facility] Ordered by Maya Barron MD on 05/23/2020 Collected: 05/23/2020 Reported: 05/26/2020 17:09 MEDMATCH 1.000 (> or = 1.003) None Note: Responsible Observer: MEDMATCH MED MATCH 910.13452 ([facility]) Reviewed by Maya Barron MD on 05/29; All test results are final unless otherwise noted. Reported Physicians [facility] Ordered by Maya Barron MD on 05/23/2020 Collected: 05/23/2020 Reported: 05/26/2020 17:09 Reported Physicians See Note None Note: Reported Physicians:Ordering: Cara Alvarengaending: Maya Barron Reviewed by Maya Barron MD on 05/29; All test results are final unless otherwise noted. Varicella-Zoster IgG Antibody [facility] Ordered by Maya Barron MD [...] Antibody Immunity Screen, ACIF.THIS TEST WAS PERFORMED AT:[facility] [id number] ME RATI,MDResponsible Observer: VARICELLA IGG Varicella-Zoster IgG Antibody [id number] 360.4467 ([facility]) NOTES See Note None Note: Patient Street Address: [facility] [address] [place]: [place] [facility] Zip Code: [address] Reviewed by Maya Barron MD on 05/26; All test results are final unless otherwise noted. Reported Physicians [facility] Ordered by Maya Barron MD on 05/23/2020 Collected: 05/23/2020 Reported: 05/25/2020 17:11 Reported Physicians See Note None Note: Reported Physicians:Ordering: Cara Alvarengaending: Maya Barron Reviewed by Maya Barron MD on 05/26; All test results are final unless otherwise noted. CBC [facility] Ordered by Maya Barron MD [...] Auto See Note (0-2) N (Normal) Note: [id number] Ob service observer: IG% IG% 100.1375 (B) Hct VFr Bld [...] results are final unless otherwise noted. TSH [facility] Ordered by Maya Barron MD on 05/23/2020 Collected: 05/23/2020 Reported: 05/23/2020 18:38 TSH SerPl DL<=0.005 mIU/L-aCnc 1.87 MicroInternationalUnitsPerMilliLiter_[Arbitrary_Con (0.35-5. 50) N (Normal) Note: Responsible Observer: TSH TSH 600 .7055 (D) Reviewed by Maya Barron MD on 05/29; All test results are final unless otherwise noted. Lead (Venous) Wh.Bld [facility] Ordered by Maya Barron MD on 05/23/2020 Collected: 05/23/2020 Reported: 05/25/2020 17:11 Lead Bld-sCnc <1 (<5) None Note: See Note 1Note 1This test was [facility] and its analytical performancecharacteristics have been determined by [employer]. It has not been cleared or approved by theA. This assay has been validated pursuant to the CLIAregulations and is used for clinical purposes.THIS TEST WAS PERFORMED AT:[facility] [id number] MERATI,MDResponsible Observer: Lead, WB Lead, Whole Blood [id number] 911.2190 ([facility]) NOTES See Note None Note: Patient Street Address: [facility] [address]Patient City: [place] [facility] Zip Code: [address] Reviewed by Maya Barron MD on 05/29; All test results are final unless otherwise noted. ncPN REF [facility] Ordered by Maya Barron MD on 05/23/2020 Collected: 05/23/2020 Reported: 05/27/2020 20:54 T pallidum Ab Ser Ql Aggl See Note (Nonreactive) None Note: [id number] onreactiveResponsible Observer: TP-PA Treponema pallidum Ab (TP-PA) [id number] 908.0286 ([facility]) HIV1 RNA SerPl Ql ТАТЬЯНА+probe See Note None Note: TNPNo Reportable ResultLTNPNo Repo rtable ResultLLEP.LIVENTNPResponsible Observer: HIV 1 RNA, QL T HIV 1 RNA, QL TMA [id number] 908.0254 ([facility]) HBV surface Ag SerPl Ql IA See Note (NON-REACTIVE) None Note: [id number] 0NON-REACTIVEResponsible Observer: HBSAG Hepatitis B Surface Antigen [id number] 910.2004 ([facility]) RUBV IgG SerPl IA-aCnc 1.80 None Note: Index Interpretatio n ----- <0.90 Not consistent with Immunity 0.90-0.99 Equivocal > or = 1.00 Consistent with ImmunityThe presence of rubella IgG antibody suggestsimmunization or past or current infection withrubella virus.THIS TEST WAS PERFORMED AT:[facility] [address]HPHCRD MERATI,MDResponsible Observer: Rubella IgG Ab Rubella IgG Ab [id number] 911.2840 ([facility]) HIV1 Ab SerPlBld Ql IA.rapid See Note None Note: TNPNo Reportable ResultLTNPNo Repo rtable ResultLLEP.LIVENTNPResponsible Observer: HIV 1 AB HIV 1 AB [id number] 908.0250 ([facility]) HBsAg Confirmation See Note None Note: TNPNo Reportable ResultLTNPNo Repo rtable ResultLLEP.LIVENTNPResponsible Observer: HBsAg Confirm HBsAg Confirmation [id number] 910.2006 ([facility]) HIV (1&2) Screen, 4th Gen [...] for this purpose.For additional information please refer tohttp://education.[employer]/faq/KHX885(This link is being provided for informational/educational purposes only.)The performance of this assay has not been clinicallyvalidated in patients less than 2 years old.Responsible Observer: HIV ABS HIV (1&2) Screen, 4th Gen [id number] 908.1979 ([facility]) Reviewed by Maya Barron MD on 05/29; All test results are final unless otherwise noted. Reported Physicians [facility] Ordered by Maya Barron MD on 05/23/2020 Collected: 05/23/2020 Reported: 05/27/2020 20:54 Reported Physicians See Note None Note: Reported Physicians:Ordering: Maya AlvarengaAttending: Maya Barron Reviewed by Maya Barron MD on 05/29; All test results are final unless otherwise noted. HCV RFX ТАТЬЯНА [facility] Ordered by Maya Barron MD on 05/23/2020 Collected: 05/23/2020 Reported: 05/25/2020 17:11 HCV Ab Ser Ql See Note (NON-REACTIVE) None Note: [id number] 7NON-REACTIVEResponsible Observer: HEP C ANTIBODY Hepatitis C Antibody [id number] 914.8305 ([facility]) HCV RNA Qualitative (ТАТЬЯНА) 0.59 (<1.00) None Note: HCV antibody was non-reactive. The re is no laboratoryevidence of HCV infection.In most cases, no further action is required. However,if recent HCV exposure is suspected, a test for HCV RNA(test code 64118) is suggested.For additional information please refer tohttp://education.[employer]/faq/COZ98o6(This link is being provided for informational/educational purposes only.)THIS TEST WAS PERFORMED AT:[facility] [address]CLAUDY ONEILLesponsible Observer: SIG TO C/O SIGNAL TO CUTOFF [id number] 914.8335 ([facility]) NOTES See Note None Note: Patient Street Address: [facility] [address] City: [facility] [place]: [place] Zip Code: [address] Reviewed by Maya Barron MD on 05/26; All test results are final unless otherwise noted. Reported Physicians [facility] Ordered by Maya Barron MD on 05/23/2020 Collected: 05/23/2020 Reported: 05/25/2020 17:11 Reported Physicians See Note None Note: Reported Physicians:Ordering: Maya AlvarengaAttending: Maya Barron Reviewed by Maya Barron MD on 05/26; All test results are final unless otherwise noted. Type and Screen [facility] Ordered by Maya Barron MD [...] are final unless otherwise noted. Reported Physicians [facility] Ordered by Maya Barron MD on 05/23/2020 Collected: 05/23/2020 Reported: 05/23/2020 19:32 Reported Physicians See Note None Note: Reported Physicians:Ordering: Maya AlvarengaAttending: Maya Barron Reviewed by Maya Barron MD on 05/24; All test results are final unless otherwise noted. PROGESTERONE [facility] Ordered by Maya Barron MD [...] are final unless otherwise noted. Reported Physicians [facility] Ordered by Maya Barron MD on 04/27/2020 Collected: 04/27/2020 Reported: 04/27/2020 15:58 Reported Physicians See Note None Note: Reported Physicians:Ordering: Johnny HernándezAttending: Jos Castellanos To: Rubén Barron To: Cristino Castellanos Reviewed by Maya Barron MD on 04/30; All test results are final unless otherwise noted. BHCG, QUANTITATIVE [facility] Ordered by Maya Barron MD on 04/27/2020 Collected: 04/27/2020 Reported: 04/27/2020 14:40 B-HCG [facility] [address] MilliInternationalUnitsPerMilliLiter_[Arbitrary_Con (0-10) H (High) Note: @Instrument [...] are final unless otherwise noted. Reported Physicians [facility] Ordered by Maya Barron MD on 04/27/2020 Collected: 04/27/2020 Reported: 04/27/2020 14:40 Reported Physicians See Note None Note: Reported Physicians:Ordering: Cristino SnowAttending: Jos Castellanos To: Suzanne Cazares To: Maya Barron Reviewed by Maya Barron MD on 04/30; All test results are final unless otherwise noted. CBC W AUTO DIFF [facility] Ordered by Maya Barron MD [...] Auto See Note (0-2) N (Normal) Note: [id number] Ob service observer: IG% IG% 100.1375 (B) Hct VFr Bld [...] test results are final unless otherwise noted. [facility] Ordered by Maya Barron [...] are final unless otherwise noted. Reported Physicians [facility] Ordered by Maya Barron MD on 04/25/2020 Collected: 04/25/2020 Reported: 04/25/2020 22:11 Reported Physicians See Note None Note: Reported Physicians:Ordering: Aj Ferreiraending: Jos Rivas To: Maya Barron Reviewed by Maya Barron MD on 04/26; All test results are final unless otherwise noted. BHCG, QUANTITATIVE [facility] Ordered by Maya Barron MD on 04/25/2020 Collected: 04/25/2020 Reported: 04/25/2020 22:11 B-HCG [facility] [place] [address] MilliInternationalUnitsPerMilliLiter_[Arbitrary_Con (0-10) H (High) Note: @Instrument [...] are final unless otherwise noted. Reported Physicians [facility] Ordered by Maya Barron MD on 04/25/2020 Collected: 04/25/2020 Reported: 04/25/2020 22:11 Reported Physicians See Note None Note: Reported Physicians:Ordering: Cristino FerreiraAttending: Jos Rivas To: Maya Barron Reviewed by Maya Barron MD on 04/26; All test results are final unless otherwise noted. Urine culture [facility] Ordered by Maya Barron MD on 04/25/2020 Collected: 04/25/2020 Reported: 04/27/2020 04:50 Bacteria Ur Cult See Note None Note: NGNo growth.L1NG NOTES See Note None Note: @ NICOLE DATE was changed from 04/26 to 04/25/20@ by [facility]. Reviewed by Maya Barron MD on 04/30; All test results are final unless otherwise noted. Reported Physicians [facility] Ordered by Maya Barron MD on 04/25/2020 Collected: 04/25/2020 Reported: 04/27/2020 04:51 Reported Physicians See Note None Note: Reported Physicians:Ordering: Cristino FerreiraAttending: Jos Rivas To: Maya Barron Reviewed by Maya Barron MD on 04/30; All test results are final unless otherwise noted. ADD ON MICROSCOPIC [facility] Ordered by Maya Barron MD on 04/25/2020 Collected: 04/25/2020 Reported: 04/25/2020 21:54 ADD ON MICROSCOPIC See Note (0-5) None Note: NOTES OTHER/NOT INTERPRETED Bacteria UrnS Ql Micro SMALL AMOUNT Bacteria UrnS Ql Micro SMALL AMOUNT Bacteria UrnS Ql Micro L Bacteria UrnS Ql Micro Bacteria UrnS Ql Micro Bacteria UrnS Ql Micro Bacteria UrnS Ql Micro [id number] Bacteria UrnS Ql Micro Bacteria UrnS Ql [...] are final unless otherwise noted. Reported Physicians [facility] Ordered by Maya Barron MD on 04/25/2020 Collected: 04/25/2020 Reported: 04/25/2020 21:54 Reported Physicians See Note None Note: Reported Physicians:Ordering: Aj Ferreiraending: Jos Rivas To: Maya Barron Reviewed by Maya Barron MD on 04/26; All test results are final unless otherwise noted. URINALYSIS [facility] Ordered by Maya Barron MD on 04/25/2020 Collected: 04/25/2020 Reported: 04/25/2020 21:54 Urobilinogen Ur Ql See Note (0.2-1 EU/dl) None Note: 0.2 EU/dl0.2 EU/[id number] E U/dlResponsible Observer: UROBILINOGEN UROBILINOGEN 300.4500 (C) RBC # Ur Strip NEGATIVE (NEGATIVE) None Note: Responsible Observer: BLOOD BLOOD 300.4650 (C) Prot Ur Ql Strip See Note (NEGATIVE) None Note: [id number] EResponsible Observer: PROTEIN PROTEIN 300.3750 (C) Ketones Ur Ql Strip See Note (NEGATIVE) None Note: [id number] EResponsible Observer: KETONE KETONE 300.3900 (C) Bilirub Ur Ql Strip.auto See Note (NEGATIVE) None Note: [id number] EResponsible Observer: BILIRUBIN BILIRUBIN 300.4550 (C) Glucose Ur Strip.auto-mCnc NEGATIVE (NEGATIVE) None Note: Responsible Observer: GLUCOSE GLUC OSE 300.3850 (C) Appearance Ur See Note (CLEAR) None Note: CLEARCLEARLCLEARResponsible Observ er: APPEARANCE APPEARANCE 300.3400 (A) Color Ur See Note None Note: YELLOWYELLOWLYELLOWResponsible Obs erver: COLOR COLOR 300.3300 (A) Leukocyte esterase Ur Ql Strip See Note (NEGATIVE) None Note: [id number]@DO MICR O!!!!Responsible Observer: LEUKOCYTES LEUKOCYTES 300.3575 (C) Nitrite Ur Ql Strip See Note (NEGATIVE) None Note: [id number] EResponsible Observer: NITRITE NITRITE 300.3650 (B) pH [...] are final unless otherwise noted. Reported Physicians [facility] Ordered by Maya Barron MD on 04/25/2020 Collected: 04/25/2020 Reported: 04/25/2020 21:54 Reported Physicians See Note None Note: Reported Physicians:Ordering: Aj Ferreiraending: Jos Rivas To: Maya Barron Reviewed by Maya Barron MD on 04/26; All test results are final unless otherwise noted. BHCG, QUANTITATIVE [facility] Ordered by Maya Barron MD [...] are final unless otherwise noted. Reported Physicians [facility] Ordered by Maya Barron MD on 04/18/2020 Collected: 04/18/2020 Reported: 04/18/2020 15:11 Reported Physicians See Note None Note: Reported Physicians:Ordering: Cara Alvarengaending: Maya Barron Reviewed by Maya Barron MD on 04/19; All test results are final unless otherwise noted. ADD ON MICROSCOPIC [facility] Ordered by Maya Barron MD on 04/16/2020 Collected: 04/16/2020 Reported: 04/16/2020 23:51 ADD ON MICROSCOPIC See Note (0-5) None Note: NOTES OTHER/NOT INTERPRETED Bacteria UrnS Ql Micro SMALL AMOUNT Bacteria UrnS Ql Micro SMALL AMOUNT Bacteria UrnS Ql Micro L Bacteria UrnS Ql Micro Bacteria UrnS Ql Micro Bacteria UrnS Ql Micro Bacteria UrnS Ql Micro [id number] Bacteria UrnS Ql Micro Bacteria UrnS Ql [...] are final unless otherwise noted. Reported Physicians [facility] Ordered by Maya Barron MD on 04/16/2020 Collected: 04/16/2020 Reported: 04/16/2020 23:52 Reported Physicians See Note None Note: Reported Physicians:Ordering: Damon , VinodAttending: Damon, VinodCopy To: Maya Barron Reviewed by Maya Barron MD on 04/17; All test results are final unless otherwise noted. UA W/ CULTURE IF ABNORMAL [facility] Ordered by Maya Barron MD on 04/16/2020 Collected: 04/16/2020 Reported: 04/16/2020 23:51 Urobilinogen Ur Ql See Note (0.2-1 EU/dl) None Note: 0.2 EU/dl0.2 EU/[id number] E U/dlResponsible Observer: UROBILINOGEN UROBILINOGEN 300.4500 (C) RBC # Ur Strip NEGATIVE (NEGATIVE) None Note: Responsible Observer: BLOOD BLOOD 300.4652 (C) Prot Ur Ql Strip See Note (NEGATIVE) None Note: [id number] EResponsible Observer: PROTEIN PROTEIN 300.3750 (C) Ketones Ur Ql Strip See Note (NEGATIVE) None Note: [id number] ble Observer: KETONE KETONE 300.3900 (C) Bilirub Ur Ql Strip.auto See Note (NEGATIVE) None Note: [id number] EResponsible Observer: BILIRUBIN BILIRUBIN 300.4550 (C) Glucose Ur Strip.auto-mCnc NEGATIVE (NEGATIVE) None Note: Responsible Observer: GLUCOSE GLUC OSE 300.3850 (C) Appearance Ur See Note (CLEAR) None Note: CLEARCLEARLCLEARResponsible Observ er: APPEARANCE APPEARANCE 300.3400 (A) Color Ur See Note None Note: YELLOWYELLOWLYELLOWResponsible Obs erver: COLOR COLOR 300.3330 (A) Leukocyte esterase Ur Ql Strip See Note (NEGATIVE) None Note: [id number] E@DO MICRO!!!!A Culture has been added to this specimen per established criteriaResponsible Observer: LEUKOCYTES LEUKOCYTES 300.3576 (C) Nitrite Ur Ql Strip See Note (NEGATIVE) None Note: [id number] EResponsible Observer: NITRITE NITRITE 300.3652 (B) pH [...] are final unless otherwise noted. Urine culture [facility] Ordered by Maya Barron MD on 04/16/2020 Collected: 04/16/2020 Reported: 04/18/2020 06:47 Urine culture result See Note None Note: Less than 10,000 CFU/MLNormal Comm ensal FloraProbable contaminants no senst done NOTES See Note None Note: @04/16/20 2351: Urine culture adde d. RFLXG = CULT.ADD. Reviewed by Maya Barron MD on 04/18; All test results are final unless otherwise noted. Reported Physicians [facility] Ordered by Maya Barron MD on 04/16/2020 Collected: 04/16/2020 Reported: 04/18/2020 06:47 Reported Physicians See Note None Note: Reported Physicians:Ordering: Damon , VinodAttending: Damon, VinodCopy To: Maya Barron Reviewed by Maya Barron MD on 04/18; All test results are final unless otherwise noted. CBC W AUTO DIFF [facility] Ordered by Maya Barron MD [...] Auto See Note (0-2) N (Normal) Note: 0.20.4Q91735306706.2Responsible Ob service observer: IG% IG% 100.1375 (B) Hct VFr Bld [...] are final unless otherwise noted. BHCG, QUANTITATIVE [facility] Ordered by Maya Barron MD [...] are final unless otherwise noted. Reported Physicians [facility] Ordered by Maya Barron MD on 04/16/2020 Collected: 04/16/2020 Reported: 04/16/2020 22:47 Reported Physicians See Note None Note: Reported Physicians:Ordering: Damon , VinodAttending: Damon, VinodCopy To: Maya Barron Reviewed by Maya Barron MD on 04/17; All test results are final unless otherwise noted. CMP [facility] Ordered by Maya Barron MD [...] are final unless otherwise noted. Reported Physicians [facility] Ordered by Maya Barron MD on 04/16/2020 Collected: 04/16/2020 Reported: 04/16/2020 22:44 Reported Physicians See Note None Note: Reported Physicians:Ordering: Romel Josettending: Damon, VinodCopy To: Maya Barron Reviewed by Maya Barron MD on 04/17; All test results are final unless otherwise noted. LIPASE [facility] Ordered by Maya Barron MD on 04/16/2020 Collected: 04/16/2020 Reported: 04/16/2020 22:44 Lipase SerPl-cCnc 107 enzyme_unit_per_liter (73-393) N (Normal) Note: Responsible Observer: Lipase Lipas e 400.2310 (G) Reviewed by Maya Barron MD on 04/17; All test results are final unless otherwise noted. Reported Physicians [facility] Ordered by Maya Barron MD on 04/16/2020 Collected: 04/16/2020 Reported: 04/16/2020 22:44 Reported Physicians See Note None Note: Reported Physicians:Ordering: Damon , VinodAttending: Damon, VinodCopy To: Maya Barron Reviewed by Maya Barron MD on 04/17; All test results are final unless otherwise noted. Type and Screen [facility] Ordered by Maya Barron MD [...] are final unless otherwise noted. Reported Physicians [facility] Ordered by Maya Barron MD on 04/16/2020 Collected: 04/16/2020 Reported: 04/16/2020 23:09 Reported Physicians See Note None Note: Reported Physicians:Ordering: Damon VinodAttending: Jose E JoseodCopy To: Maya Barron Reviewed by Maya Barron MD on 04/17; All test results are final unless otherwise noted. CBC [facility] Ordered by Maya Barron MD on 04/10/[address] [place] [address], [id number] Collected: 04/10/2020 Reported: 04/11/2020 11:35 tel : [...] test results are final unless otherwise noted. [facility] Doctor's In-house Laboratory Ordered by Maya Barron MD on 04/10/[address] [place] [address], [facility] Collected: 04/10/2020 Reported: 04/11/2020 11:35 tel [...] Ordered by Maya Barron MD on 04/10/[address] [place] [address], [id number] Collected: 04/10/2020 Reported: 04/11/2020 11:35 tel : ext. 1500 TSH 1.336 uIu/mL (0.5-5.8) None Note: Responsible Observer: AW Reviewed by Maya Barron MD on 04/12; All test results are final unless otherwise noted. Urinalysis w/out microscopy Office Lab Ordered by Maya Barron MD on [address] [place] [address], [id number] Specimen Source: Urine Collected: Reported: 2020 11:41 [...] Procedures and Surgical History Includes: Procedures from 03/13/2020 through 03/13/2021 Procedures Code Diagnosis Performing Provider Service Location Service Date REVISIT- office visit [facility] 36 weeks gestatio n of Maya Barron MD [facility], [facility] 03/07/2021 REVISIT- office visit [facility] 35 weeks gestatio n of Cat Gutierrez RPA [facility], [facility] 02/27/2021 REVISIT- office visit [facility] 34 weeks gestatio n of Maya Barron MD [facility], [facility] 02/23/2021 REVISIT- office visit [facility] 29 weeks gestatio n of Maya Barron MD [facility], [facility] 01/16/2021 REVISIT- office visit [facility] 27 weeks gestatio n of Maya Barron MD [facility], [facility] 12/26/2020 REVISIT- office visit [facility] 23 weeks gestatio n of Maya Barron MD [facility], [facility] 12/05/2020 REVISIT- office visit [facility] 22 weeks gestatio n of Maya Barron MD [facility], [facility] 11/28/2020 no charge procedure NC Tension-type headache, unspe cified, intractable Maya Barron MD [facility], [facility] 11/21/2020 REVISIT- office visit [facility] 21 weeks gestatio n of Maya Barron MD [facility], [facility] 11/21/2020 REVISIT- office visit [facility] 20 weeks gestatio n of Maya Barron MD [facility], [facility] 11/14/2020 no charge procedure NC Palpitations Maya Barron MD [facility], [facility] 11/03/2020 no charge procedure NC Palpitations Maya Barron MD [facility], [facility] 10/31/2020 REVISIT- office visit [facility] 18 weeks gestatio n of Maya Barron MD [facility], [facility] 10/31/2020 REVISIT- office visit [facility] 17 weeks gestatio n of Maya Barron MD [facility], [facility] 10/24/2020 no charge procedure NC Palpitations Maya Barron MD [facility], [facility] 10/17/2020 REVISIT- office visit [facility] 16 weeks gestatio n of Maya Barron MD [facility], [facility] 10/17/2020 Holter Monitor, Physician review & interpretation only [id number] Palpitations Michel Villalba MD [facility] Outpt 10/11/2020 REVISIT- office visit [facility] 15 weeks gestatio n of Maya Barron MD [facility], [facility] 10/11/2020 REVISIT- office visit [facility] 13 weeks gestatio n of Maya Barron MD [facility], [facility] 09/27/2020 REVISIT- office visit [facility] 12 weeks gestatio n of Maya Barron MD [facility], [facility] 09/19/2020 EKG- Electrocardiogram/12 lead 19376 Chest pain, unspe cified Cat Gutierrez [facility], [facility], [facility] 09/11/2020 REVISIT- office visit [facility] 10 weeks gestatio n of Cat Gutierrez [facility], [facility], [facility] 09/05/2020 REVISIT- office visit [facility] 8 weeks gestation of Maya Barron MD [facility], [facility] 08/22/2020 Urinalysis w/o Microscopy (Distinct Seperate service-same da y) 73509 Frequency of micturition- Urinary Frequency Maya Barron MD [facility], [facility] 08/15/2020 RAPID STREP 35615 Acute pharyngitis, unspecified Maya Barron MD [facility], [facility] 08/15/2020 Initial Obstetrical Care Office Visit OB Le ss than 8 weeks gestation of Cat Gutierrez [facility], [facility], [facility] 021 Urinalysis w/o Microscopy 46895 Frequency of micturiti on- Urinary Frequency Maya Barron MD [facility], [facility] 07/19/2020 REVISIT- office visit [facility] Threatened Alicja Barron MD [facility], [facility] 05/26/2020 NO CHARGE- Nurse visit- OB establish [employer] Thr eatened , state, incidental Maya Barron MD [facility], [facility] 020 General Health Panel( CMP, CBC, TSH) [id number] Dysmenorrhe a, unspecified Maya Barron MD [facility], [facility] 04/10/2020 Venipuncture (routine) 30375 Dysmenorrhea, unspecified Mariela Barron MD [facility], [facility] 04/10/2020 Brief Emotional Behavior Assessment 56700 Scre ening for Mental Health/Behavioral Disorder, Unspecified Maya Barron MD [facility], [facility] 04/10/2020 Surgical History Last Updated No surgical [...] 2 01/16/2021 Left Deltoid Complete (A dministered) [facility] Varicella 1 04/18/2000 Complete (Reported) Patient Varicella 2 04/29/2016 Complete (Reported) Patient Allergies Includes: Active, inactive, and resolved Allergies Substance Type Reaction Onset Date - Time Resolved Date - Ti me Status Naproxen Allergy Skin Rashes 02/01/2020 - 12:00AM Act marquita Encounters Includes: Encounters from 03/13/2020 through 03/13/2021 Encounter Provider Location Date Check-In Time Check-Out Time D iagnosis REVISIT- Routine (OB) Visit Maya Barron MD [facility], [facility] 03/13/2021 9:55AM 10:07AM REVISIT- Routine (OB) Visit Maya Barron MD [facility], [facility] 03/07/2021 10:01AM 10:23AM REVISIT- Routine (OB) Visit Cat Gutierrez [facility], [facility] 02/27/2021 9:52AM 10:21AM REVISIT- Routine (OB) Visit Maya Barron MD [facility], [facility] 02/23/2021 2:25PM 2:41PM REVISIT- Routine (OB) Visit Maya Barron MD [facility], [facility] 01/16/2021 9:52AM 10:23AM Telehealth communication Maya Barron MD [facility], [facility] 01/09/2021 12/26/2020 10:00AM 10:27AM Generalized Anxiety Disorder, Chest Pain, Iron Deficiency Anemia, Upper Respiratory Infection REVISIT- Routine (OB) Visit Maya Barron MD [facility], [facility] 12/26/2020 9:45AM 10:08AM telephone conversation Michel Villalba MD 1 12/14/2020 9:13AM 12/14/2020 11:59PM Atypical Chest Pain telephone conversation Michel Villalba MD 12/14/2020 6:45PM 12/14/2020 11:59PM Hypotension telephone conversation Maya Barron MD [facility] 12/19/2020 12/14/2020 2:14PM 12/14/2020 11:59PM Fracture of Fifth Ce rvical Vertebral Body, History of Psychiatric Disorders, Reactive Airway Disease Problem visit - not contagious Bandar Cleveland PA-C [facility], [facility] 12/14/2020 2:08PM 2:52PM Tension-type Headach e REVISIT- Routine (OB) Visit Maya Barron MD [facility], [facility] 12/05/2020 11:17AM 12:08PM REVISIT- Routine (OB) Visit Maya Barron MD [facility], [facility] 11/28/2020 1:34PM 1:51PM Chronic Care Mgt - Office Visit Maya Barron MD [facility], [facility] 11/21/2020 2:10PM 2:35PM Fracture of Fift h Cervical Vertebral Body, History of Psychiatric Disorders, Reactive Airway Disease REVISIT- Routine (OB) Visit Maya Barron MD [facility], [facility] 11/21/2020 11:33AM 12:01PM REVISIT- Routine (OB) Visit Maya Barron MD [facility], [facility] 11/14/2020 9:55AM 10:36AM REVISIT- Routine (OB) Visit Maya Barron MD [facility], [facility] 11/07/2020 11:42AM 12:02PM OB- ILL VISIT Maya Barron MD [facility], [facility] 11/03/2020 3:45PM 4:29PM , Generalized Anxie ty Disorder, Panic Disorder, Chest Pain Chronic Care Mgt - Office Visit Maya Barron MD [facility], [facility] 11/03/2020 2:37PM 3:38PM Chronic Care Mgt - Office Visit Maya Barron MD [facility], [facility] 10/31/2020 3:23PM 3:24PM Fracture of Fift h Cervical Vertebral Body, History of Psychiatric Disorders, Reactive Airway Disease REVISIT- Routine (OB) Visit Maya Barron MD [facility], [facility] 10/31/2020 9:54AM 10:24AM Chronic Care Mgt - Office Visit Maya Barron MD [facility], [facility] 10/24/2020 2:16PM 11:59PM REVISIT- Routine (OB) Visit Maya Barron MD [facility], [facility] 10/24/2020 10:00AM 10:47AM REVISIT- Routine (OB) Visit Maya Barron MD [facility], [facility] 10/17/2020 11:24AM 12:12PM Chronic Care Mgt - Office Visit Maya Barron MD [facility], [facility] 10/17/2020 11:25AM 12:11PM Fracture of Fift h Cervical Vertebral Body, History of Psychiatric Disorders, Reactive Airway Disease REVISIT- Routine (OB) Visit Maya Barron MD [facility], [facility] 10/11/2020 9:44AM 10:15AM OB- ILL VISIT Maya Barron MD [facility], [facility] 10/04/2020 2:12PM 2:31PM Presyncope Syndrome, Tachyca rdia, Palpitations, Difficulty Breathing (Dyspnea), Weeks of Gestation - 14 REVISIT- Routine (OB) Visit Maya Barron MD [facility], [facility] 09/27/2020 1:36PM 1:59PM telephone conversation Michel Villalba MD 09/19/2020 9:43PM 09/19/2020 11:59PM Atypical Chest Pain REVISIT- Routine (OB) Visit Maya Barron MD [facility], [facility] 09/19/2020 9:48AM 10:14AM REVISIT- Routine (OB) Visit Cat Gutierrez [facility], [facility] 09/11/2020 3:22PM 4:16PM REVISIT- Routine (OB) Visit Cat Gutierrez [facility], [facility] 09/05/2020 9:37AM 10:00AM TCMNV phone call- NO CHARGE Cat Gutierrez [facility] 09/04/2020 09/05/2020 4:54PM 09/05/2020 11:59PM [Patient Encounter] Cat Gutierrez [facility] 08/31/2020 021 2:21PM 08/22/2020 11:59PM telephone conversation Michel Villalba MD 08/2808/22/2020 11:00AM 08/22/2020 11:59PM REVISIT- Routine (OB) Visit Maya Barron MD [facility], [facility] 08/22/2020 1:56PM 2:19PM sick visit Maya Barron MD [facility], [facility] 0 08/15/2020 9:36AM 10:12AM Upper Respiratory Infection Acute, Pollakiuria Obstetrics/ first visit Cat Gutierrez [facility], [facility] 08/09/2020 9:22AM 10:56AM followup Cat Gutierrez [facility], [facility] 0 08/02/2020 10:18AM 11:42AM Generalized Anxiety Disorder , Early Stage, Abdominal Pain telephone conversation Michel Villalba MD 07/26/2020 7:59AM 07/26/2020 11:59PM [Patient Encounter] Cat Gutierrez [facility] 07/28/2020 021 2:20PM 07/26/2020 11:59PM followup Maya Barron MD [facility] 0 07/26/2020 10:39AM 11:02AM , Generalized Anxie ty Disorder sick visit Bandar Cleveland PA-C [facility] 3:36PM 4:30PM Pyrexia followup Maya Barron MD [facility] 0 07/19/2020 10:52AM 11:30AM , Generalized Anxie ty Disorder, Pollakiuria followup Maya Barron MD [facility] 1 09/11/2019 10:43AM 11:14AM Atypical Chest Pain, Adjustm ent Disorder followup Maya Barron MD [facility] 1 08/07/2019 10:43AM 10:59AM Missed followup Maya Barron MD [facility], [facility] 05/26 1:45PM 2:11PM with Threatened Problem visit - not contagious Maya Barron MD [facility] 05/24/2020 11:13AM 12:00PM with T hreatened [Patient Encounter] Maya Barron MD 05/24/2020 020 10:17AM 04/19/2020 11:59PM followup Maya Barron MD [facility] 1 11:51AM 12:08PM ANNUAL PE-followup Maya Barron MD [facility] 04/10/2020 8:42AM 9:13AM Routine History and Physical Adult (18 - 64 Yrs), Dysmenorrhea Insurance Includes: Active Insurance Policies Plan Name Member ID Group # Subscriber Relationship Effective Da greg 1 - MANAGED MEDICAID [employer] [id number] Georgiana Nguyen 07/14/2020 - Unknown Advance Directives Includes: Current Advance DirectivesNo Advance Directives Recorded Health Concerns Includes: Active Health ConcernsNo Active Health Concerns Recorded Goals Includes: Active GoalsNo Active Goals Recorded Interventions Includes: Interventions for active GoalsNo Interventions Recorded Evaluations & Outcomes Includes: Evaluations & Outcomes for active GoalsNo Outcomes Recorded
--- OUTSIDE RECORDS SUMMARY | 2021-04-29 16:40 | CCD ---
Author Author [facility] Organization 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 Ultrasound OB US-36wk (TRUE, Presentation, Sheila mated Weight) state, incidental 03/13/21 Maya Barron MD Future Appointments Date Time Location Provider REVISIT- Routine (OB[facility]ine (OB) Visit 03/27/2021 10:00AM [facility] Maya Barron MD Findings Encounter Date Community [...] disorder] followup with Maya Barron MD 07/19/2020 Pollarturouria will evaluate further with UA [Frequency of micturition] followup with Maya Barron MD 07/19/2020 [ state, incidental] followup with Maya Barron MD 07/19/2020 Adjustment disorder Counseling and reas surance provided today. 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, CAD on health maintenance [Encounter for general adult medical examination with abnormal findings] ANNUAL PE-followup exam/30 with Maya Barron MD 04/07/2019 Vaginal candidiasis sick visit with [facility] 02/11 Pharyngitis urgent visit with Bandar Cleveland PA-C 2018 Sprained ribs ; left sick visit with [facility] Strain of muscle and tendon of front wall of thorax si ck visit with [facility] 10/30/2018 Fracture of fifth cervical vertebral body No Fault with [facility] a [facility] 03/04/2018 Late effects of accident No Fault with [facility] 0 03/04/2018 Instructions Instructions not [...] Solution 09/05/2020 - 11/04/2020 Provider: Cat Gutierrez [facility] Diagnosis: Other asthma- reacti ve airway disease 2 puffs q4hr prn Monistat 7 Combo Pack Chava 100 & 2 MG-% (9GM) Vaginal K it 08/31/2020 - 09/07/2020 Provider: Cat Gutierrez [facility] Diagnosis: as directed - Insert 1 applicatorful [...] 08/10/2020 - 08/17/2020 Pro vider: Cat Gutierrez [facility] Diagnosis: 1 PO BID Sertraline HCl 50 MG Oral Tablet 08/02/2020 - 08/22/2020 Pro vider: Cat Gutierrez [facility] Diagnosis: as directed - Take 1/2 tab [...] 125 MG Oral Capsule 12/13/2019 - 12/13/2019 Beth rovider: Maya Barron MD Diagnosis: 1 PO [...] Recorded Vital Signs Includes: Vital Signs from 03/07/2020 through 03/07/2021 Vital Name 03/07/2021 10:12A 02/27/2021 10:07A 02/23/2021 02:35P 01/16/2021 10:00A 12/26/2020 09:58A Blood Pressure Sitting L 114/70 100/54 98/62 BP Cuff Size Regular Regular Regular Pulse Rate-Sitting (bpm) 79 92 95 88 Respiration Rate (breaths/min) 18 20 18 20 Weight (lb) 140 142 139 133 130 Blood Pressure Sitting (mmHg) 102/60 102/64 Vital Name 12/14/2020 02:15P 12/05/2020 11:47A 11/28/2020 01:44P 11/21/2020 11:41A 11/14/2020 10:01A Blood Pressure Sitting L 100/62 100/60 BP Cuff Size Regular Regular Regular Regular Pulse Rate-Sitting (bpm) 98 80 88 76 72 Respiration Rate (breaths/min) 20 20 20 20 20 Weight (lb) 126.6 126 123 122 121 Blood Pressure Sitting (mmHg) 102/50 Oxygen Saturation (%) 98 Blood Pressure Sitting R 92/60 100/60 Vital Name 11/07/2020 11:52A 11/03/2020 04:01P 10/31/2020 10:02A 10/24/2020 10:12A 10/17/2020 11:34A Blood Pressure Sitting L 92/54 100/62 100/60 100/60 110/56 BP Cuff Size Regular Regular Regular Regular Regular Pulse Rate-Sitting (bpm) 80 80 88 80 80 Respiration Rate (breaths/min) 20 20 20 20 20 Weight (lb) 121 117 120 120 118 Vital Name 10/11/2020 09:56A 10/04/2020 02:18P 09/27/2020 01:44P 09/19/2020 09:58A 09/11/2020 03:39P Blood Pressure Sitting L 110/60 98/62 100/60 BP Cuff Size Regular Regular Regular Regular Pulse Rate-Sitting (bpm) 76 116 76 76 Respiration Rate (breaths/min) 20 24 20 20 Weight (lb) 120 118 120 119 118 Blood Pressure Sitting (mmHg) 104/60 Blood Pressure Sitting R 100/60 Vital Name 09/05/2020 09:48A 08/22/2020 02:14P 08/15/2020 09:54A 08/09/2020 09:27A 08/02/2020 10:58A Pulse Rate-Sitting (bpm) 78 72 72 64 Respiration Rate (breaths/min) 18 20 20 Weight (lb) 119 121 121 123 Blood Pressure Sitting (mmHg) 110/68 112/60 100/72 90/50 98/60 Temp-Tympanic (F) 97.3 Height (in) 65 Body Mass Index (kg/m2) 20.1 Body Surface Area (m2) 1.60 Vital Name 07/26/2020 10:46A 07/25/2020 04:09P 07/19/2020 11:05A 07/11/2020 10:56A 06/07/2020 10:51A Blood Pressure Sitting L 102/62 BP Cuff Size Regular Pulse Rate-Sitting (bpm) 86 80 114 78 72 Respiration Rate (breaths/min) 18 20 18 20 Weight (lb) 124 126 121.6 125 119 Blood Pressure Sitting (mmHg) 118/76 116/80 120/80 124/80 Oxygen Saturation (%) 98 98 98 Temp-Tympanic (F) 98.2 Height (in) 65 65 65 64 Body Mass Index (kg/m2) 20.6 20.2 20.8 2 0.4 Body Surface Area (m2) 1.61 1.60 1.62 1. 57 Temp-Oral (F) 98.5 98.2 98.5 Vital Name 05/26/2020 01:50P 05/24/2020 12:01P 04/19/2020 11:58A 04/10/2020 08:48A Pulse Rate-Sitting (bpm) 86 87 72 Respiration Rate (breaths/min) 20 20 20 Weight (lb) 118.2 117.8 116 116.2 Blood Pressure Sitting (mmHg) 118/72 110/72 108/60 118/82 Height (in) 64 Body Mass Index (kg/m2) 19.9 Body Surface Area (m2) 1.55 Results Includes: Results from 03/07/2020 through 03/07/2021 Cepheid GBS RT-PCR [facility] Ordered by Cat Gutierrez RPA on 02/27/2021 Collected: 02/27/2021 Reported: 02/28/2021 12:50 Cepheid GBS RT-PCR See Note None Note: Cepheid Gene Xpert GBS LB assay is a RT-PCR with fluorogenicdetection of amplified DNA.Normal Result is " No Group B Strep detected "PREGBSNNo Group B strep [id number] Group B strep detected Reviewed by Cat Gutierrez RPA on 02/28; All test results are final unless otherwise noted. Reported Physicians [facility] Ordered by Cat Gutierrez RPA on 02/27/2021 Collected: 02/27/2021 Reported: 02/28/2021 12:50 Reported Physicians See Note None Note: Reported Physicians:Ordering: Cat ConwayAttending: Cat Gutierrez Reviewed by Cat Gutierrez RPA on 02/28; All test results are final unless otherwise noted. TROPONIN T [facility] Ordered by Maya Barron MD on 02/22/2021 Collected: 02/22/2021 Reported: 02/22/2021 00:25 TROPONIN T <0.01 NG/ML (0.00 - 0.10) None Note: TROPONIN T0.1 ng/ml Recommended as the clinical threshold value forTroponin T.Responsible Observer: (LBS) Reviewed by Maya Barron MD on 02/23; All test results are final unless otherwise noted. Reported Physicians [facility] Ordered by Maya Barron MD on 02/22/2021 Collected: 02/22/2021 Reported: 02/22/2021 00:26 Reported Physicians See Note None Note: Reported Physicians:Ordering: TURR IN, RICCARDOAttending: TURRIN, RICCARDOConsulting: MAYA BARRONCopyifan To: TURRIN, RICCARDOCopy To: ARIA MEJIACARDO Reviewed by Maya Barron MD on 02/23; All test results are final unless otherwise noted. COMPREHENSIVE METABOLIC PANEL [facility] Ordered by Maya Barron [...] are final unless otherwise noted. Reported Physicians [facility] Ordered by Maya Barron MD on 02/21/2021 Collected: 02/21/2021 Reported: 02/21/2021 21:47 Reported Physicians See Note None Note: Reported Physicians:Ordering: HOLLYR IN, RICCARDOAttending: HOLLYRIN, RICCARDOConsulting: Rubén BARRON To: ROBERTO, OMIDOCopy To: JESSEE MEJIA Reviewed by Maya Barron MD on 02/23; All test results are final unless otherwise noted. TROPONIN T [facility] Ordered by Maya Barron MD on 02/21/2021 Collected: 02/21/2021 Reported: 02/21/2021 21:47 TROPONIN T <0.01 NG/ML (0.00 - 0.10) None Note: TROPONIN T0.1 ng/ml Recommended as the clinical threshold value forTroponin T.Responsible Observer: (ABIOLA) Reviewed by Maya Barron MD on 02/23; All test results are final unless otherwise noted. Reported Physicians [facility] Ordered by Maya Barron MD on 02/21/2021 Collected: 02/21/2021 Reported: 02/21/2021 21:47 Reported Physicians See Note None Note: Reported Physicians:Ordering: TURR IN, RICCARDOAttending: HOLLYRIN, RICCARDOConsulting: Rubén BARRON To: ROBERTO, RICCARDOCopy To: ROBERTO, JESSEE Reviewed by Maya Barron MD on 02/23; All test results are final unless otherwise noted. LIPASE SERUM [facility] Ordered by Maya Barron MD on 02/21/2021 Collected: 02/21/2021 Reported: 02/21/2021 21:42 LIPASE 22 U/L (13 - 60) None Note: Responsible Observer: (DW) Reviewed by Maya Barron MD on 02/23; All test results are final unless otherwise noted. Reported Physicians [facility] Ordered by Maya Barron MD on 02/21/2021 Collected: 02/21/2021 Reported: 02/21/2021 21:42 Reported Physicians See Note None Note: Reported Physicians:Ordering: TURR IN, RICCARDOAttending: HOLLYRIN, RICCARDOConsulting: Rubén BARRON To: TURRIN, RICCARDOCopy To: TURRIN, JESSEE Reviewed by Maya Barron MD on 02/23; All test results are final unless otherwise noted. CBC W/AUTOMATED DIFF [facility] Ordered by Maya Barron MD [...] are final unless otherwise noted. Reported Physicians [facility] Ordered by Maya Barron MD on 02/21/2021 Collected: 02/21/2021 Reported: 02/21/2021 21:21 Reported Physicians See Note None Note: Reported Physicians:Ordering: JESSEE HERNANDEZAttending: JESSEE MEJIAConsulting: Rubén BARRON To: Saleem MEJIA To: JESSEE MEJIA Reviewed by Maya Barron MD on 02/23; All test results are final unless otherwise noted. 1HR GESTATIONAL GLUCOSE (50gm) [facility] Ordered by Maya Barron MD [...] are final unless otherwise noted. Reported Physicians [facility] Ordered by Maya Barron MD on 01/30/2021 Collected: 01/30/2021 Reported: 01/30/2021 14:23 Reported Physicians See Note None Note: Reported Physicians:Ordering: Maya AlvarengaAttending: Maya Barron Reviewed by Maya Barron MD on 01/31; All test results are final unless otherwise noted. URINALYSIS [facility] Ordered by Maya Barron MD on 01/30/2021 Collected: 01/30/2021 Reported: 01/30/2021 12:35 Urobilinogen Ur Ql See Note (0.2-1 EU/dl) None Note: 0.2 EU/dl0.2 EU/[id number] E U/dlResponsible Observer: UROBILINOGEN UROBILINOGEN 300.4500 (C) RBC # Ur Strip NEGATIVE (NEGATIVE) None Note: Responsible Observer: BLOOD BLOOD 300.4650 (C) Prot Ur Ql Strip See Note (NEGATIVE) None Note: [id number] ble Observer: PROTEIN PROTEIN 300.3750 (C) Ketones Ur Ql Strip See Note (NEGATIVE) None Note: 15 mg/dL15 mg/[id number] mg/d LResponsible Observer: KETONE KETONE 300.3900 (C) Bilirub Ur Ql Strip.auto See Note (NEGATIVE) None Note: [id number] EResponsible Observer: BILIRUBIN BILIRUBIN 300.4550 (C) Glucose Ur Strip.auto-mCnc NEGATIVE (NEGATIVE) None Note: Responsible Observer: GLUCOSE GLUC OSE 300.3850 (C) Appearance Ur See Note (CLEAR) None Note: CLEARCLEARLCLEARResponsible Observ er: APPEARANCE APPEARANCE 300.3400 (A) Color Ur See Note None Note: YELLOWYELLOWLYELLOWResponsible Obs erver: COLOR COLOR 300.3300 (A) Leukocyte esterase Ur Ql Strip See Note (NEGATIVE) None Note: [id number] E@DO MICRO!!!!Responsible Observer: LEUKOCYTES LEUKOCYTES 300.3575 (C) Nitrite Ur Ql Strip See Note (NEGATIVE) None Note: [id number] EResponsible Observer: NITRITE NITRITE 300.3650 (B) pH [...] are final unless otherwise noted. Reported Physicians [facility] Ordered by Maya Barron MD on 01/30/2021 Collected: 01/30/2021 Reported: 01/30/2021 12:36 Reported Physicians See Note None Note: Reported Physicians:Ordering: Cara Alvarengaending: Maya Barron Reviewed by Maya Barron MD on 01/31; All test results are final unless otherwise noted. Urine culture [facility] Ordered by Maya Barron MD on 01/30/2021 Collected: 01/30/2021 Reported: 02/01/2021 06:50 Urine culture result No growth None Reviewed by Maya Barron MD on 02/02; All test results are final unless otherwise noted. Reported Physicians [facility] Ordered by Maya Barron MD on 01/30/2021 Collected: 01/30/2021 Reported: 02/01/2021 06:50 Reported Physicians See Note None Note: Reported Physicians:Ordering: Cara Alvarengaending: Maya Barron Reviewed by Maya Barron MD on 02/02; All test results are final unless otherwise noted. ADD ON MICROSCOPIC [facility] Ordered by Maya Barron MD on 01/30/2021 Collected: 01/30/2021 Reported: 01/30/2021 12:35 ADD ON MICROSCOPIC See Note (0-5) H (High) Note: NOTES OTHER/NOT INTERPRETED Bacteria UrnS Ql Micro MODERATE AMOUNT Bacteria UrnS Ql Micro MODERATE AMOUNT Bacteria UrnS Ql Micro L Bacteria UrnS Ql Micro Bacteria UrnS Ql Micro Bacteria UrnS Ql Micro Bacteria UrnS Ql Micro [id number] Bacteria UrnS Ql Micro Bacteria UrnS Ql [...] Ql Micro Mucous Threads UrnS Ql Micro [id number] Mucous Threads UrnS Ql Micro Mucous Threads UrnS Ql Micro LARGE AMOUNT WBC # Ur Manual 15-20 @01/30/21 1230: UA W/ MICRO added. RFLXG = UMIC.Method of Collection:: VoidedResponsible Observer: WBC WBC 300.5000 (A) Reviewed by Maya Barron MD on 01/31; All test results are final unless otherwise noted. Reported Physicians [facility] Ordered by Maya Barron MD on 01/30/2021 Collected: 01/30/2021 Reported: 01/30/2021 12:36 Reported Physicians See Note None Note: Reported Physicians:Ordering: Maya AlvarengaAttending: Maya Barron Reviewed by Maya Barron MD on 01/31; All test results are final unless otherwise noted. TROPONIN [facility] Ordered by Maya Barron MD on 01/11/2021 Collected: 01/11/2021 Reported: 01/11/2021 17:30 Troponin I SerPl-mCnc Less Than 0.015 (0.00-0.09) N (Normal) Note: Less than 0.09 NG/ML Negative 0.10 - 0.77 NG/ML High Risk0.78 NG/ML or Greater PositiveThe WHO defined the cutoff (definition for diagnosis of ND)for this method as 0.78 ng/ml.Responsible Observer: Troponin I Troponin I 600.1101 (G) NOTES See Note None Note: Test(s)[place] [address] Reviewed by Maya Barron MD on 01/12; All test results are final unless otherwise noted. Reported Physicians [facility] Ordered by Maya Barron MD on 01/11/2021 Collected: 01/11/2021 Reported: 01/11/2021 17:30 Reported Physicians See Note None Note: Reported Physicians:Ordering: Les Vanegas: Fady Raza To: Maya Barron Reviewed by Maya Barron MD on 01/12; All test results are final unless otherwise noted. TSH w/ reflex to Free T4 [facility] Ordered by Maya Barron MD on 01/11/2021 Collected: 01/11/2021 Reported: 01/11/2021 17:30 TSH SerPl DL<=0.005 mIU/L-aCnc 1.05 MicroInternationalUnitsPerMilliLiter_[Arbitrary_Con (0.35-5. 50) N (Normal) Note: Responsible Observer: TSH TSH 600 .7060 (D) NOTES See Note None Note: Test(s)[place] [address] Reviewed by Maya Barron MD on 01/12; All test results are final unless otherwise noted. Reported Physicians [facility] Ordered by Maya Barron MD on 01/11/2021 Collected: 01/11/2021 Reported: 01/11/2021 17:30 Reported Physicians See Note None Note: Reported Physicians:Ordering: Les Vanegas: Fady Raza To: Maya Barron Reviewed by Maya Barron MD on 01/12; All test results are final unless otherwise noted. CBC W AUTO DIFF [facility] Ordered by Maya Barron MD [...] Auto See Note (0-2) N (Normal) Note: [id number] Ob server administrator: IG% IG% 100.1375 (B) Hct VFr Bld [...] test results are final unless otherwise noted. [facility] Ordered by Maya Barron MD [...] (Normal) Note: @Reenter manual test result: 135@diane LnetzJia at 01/11/21 1729.Responsible Observer: Sodium Sodium 400.1100 [...] NOTES See Note None Note: Test(s)[place] [address] Reviewed by Maya Barron MD on 01/12; All test results are final unless otherwise noted. Reported Physicians [facility] Ordered by Maya Barron MD on 01/11/2021 Collected: 01/11/2021 Reported: 01/11/2021 17:30 Reported Physicians See Note None Note: Reported Physicians:Ordering: Les Vanegastending: Fady Raza To: Maya Barron Reviewed by Maya Barron MD on 01/12; All test results are final unless otherwise noted. UA W/ CULTURE IF ABNORMAL [facility] Ordered by Maya Barron MD on 12/28/2020 Collected: 12/28/2020 Reported: 12/28/2020 21:56 Urobilinogen Ur Ql See Note (0.2-1 EU/dl) None Note: 0.2 EU/dl0.2 EU/[id number] E U/dlResponsible Observer: UROBILINOGEN UROBILINOGEN 300.4500 (C) RBC # Ur Strip NEGATIVE (NEGATIVE) None Note: Responsible Observer: BLOOD BLOOD 300.4652 (C) Prot Ur Ql Strip See Note (NEGATIVE) None Note: [id number] EResponsible Observer: PROTEIN PROTEIN 300.3750 (C) Ketones Ur Ql Strip See Note (NEGATIVE) None Note: [id number] EResponsible Observer: KETONE KETONE 300.3900 (C) Bilirub Ur Ql Strip.auto See Note (NEGATIVE) None Note: [id number] EResponsible Observer: BILIRUBIN BILIRUBIN 300.4550 (C) Glucose Ur Strip.auto-mCnc 250 mg/dl (NEGATIVE) None Note: Responsible Observer: GLUCOSE GLUC OSE 300.3850 (C) Appearance Ur See Note (CLEAR) A (Abnormal) Note: TURBIDTURBIDLTURBIDResponsible Obs erver: APPEARANCE APPEARANCE 300.3400 (A) Color Ur See Note None Note: YELLOWYELLOWLYELLOWResponsible Obs erver: COLOR COLOR 300.3330 (A) Leukocyte esterase Ur Ql Strip See Note (NEGATIVE) None Note: [id number]@DO MICR O!!!!A Culture has been added to this specimen per established criteriaResponsible Observer: LEUKOCYTES LEUKOCYTES 300.3576 (C) Nitrite Ur Ql Strip See Note (NEGATIVE) None Note: [id number] EResponsible Observer: NITRITE NITRITE 300.3652 (B) pH [...] are final unless otherwise noted. Urine culture [facility] Ordered by Maya Barron MD on 12/28/2020 Collected: 12/28/2020 Reported: 12/30/2020 08:03 Urine culture result 25,000 CFU/ML Lactobacilli no senst done None NOTES See Note None Note: @12/28/202155: Urine culture adde d. RFLXG = CULT.ADD. Reviewed by Maya Barron MD on 01/01; All test results are final unless otherwise noted. Reported Physicians [facility] Ordered by Maya Barron MD on 12/28/2020 Collected: 12/28/2020 Reported: 12/30/2020 08:03 Reported Physicians See Note None Note: Reported Physicians:Ordering: Sana Recinosending: Sammie Ann To: Maya Barron Reviewed by Maya Barron MD on 01/01; All test results are final unless otherwise noted. ADD ON MICROSCOPIC [facility] Ordered by Maya Barron MD [...] Ql Micro Amorph Sed UrnS Ql Micro [id number] Amorph Sed UrnS Ql Micro Amorph Sed UrnS Ql Micro LARGE AMT URATES Bacteria UrnS Ql Micro SMALL AMOUNT Bacteria UrnS Ql Micro SMALL AMOUNT Bacteria UrnS Ql Micro L Bacteria UrnS Ql Micro Bacteria UrnS Ql Micro Bacteria UrnS Ql Micro Bacteria UrnS Ql Micro [id number] Bacteria UrnS Ql Micro Bacteria UrnS Ql [...] are final unless otherwise noted. Reported Physicians [facility] Ordered by Maya Barron MD on 12/28/2020 Collected: 12/28/2020 Reported: 12/28/2020 21:56 Reported Physicians See Note None Note: Reported Physicians:Ordering: Sana Recinosending: Jasper AnnhCtricia To: Maya Barron Reviewed by Maya Barron MD on 01/01; All test results are final unless otherwise noted. Cepheid SARS/FLU/RSV RT-PCR [facility] Ordered by Maya Barron MD [...] by FDA under an EUA for use byauthorized [id number] CoV RNA Resp Ql ТАТЬЯНА+fkzpnIFKHGMCANDS-WPH-9 NOT [id number] NOT [id number] RNA Resp Ql ТАТЬЯНА+probeLNNFLUAInfluenza A Not Det [id number] A Not Zbfynxap90654-6RXOIP RNA Resp Ql ТАТЬЯНА+probeLNNINBInfluenza B Not [id number] B Not Rkadjush57058- 2RSV RNA Resp Ql ТАТЬЯНА+probeLNNRSVRSV Not [id number] Not Detected Reviewed by Maya Barron MD on 01/01; All test results are final unless otherwise noted. Reported Physicians [facility] Ordered by Maya Barron MD on 12/28/2020 Collected: 12/28/2020 Reported: 12/28/2020 22:13 Reported Physicians See Note None Note: Reported Physicians:Ordering: Sana Recinosending: Sammie Ann To: Maya Barron Reviewed by Maya Barron MD on 01/01; All test results are final unless otherwise noted. CBC W AUTO DIFF [facility] Ordered by Maya Barron MD [...] Auto See Note (0-2) N (Normal) Note: [id number] Ob server administrator: IG% IG% 100.1375 (B) Hct VFr Bld [...] test results are final unless otherwise noted. [facility] Ordered by Maya Barron MD [...] test results are final unless otherwise noted. [facility] Ordered by Maya Barron MD on 12/28/2020 Collected: 12/28/2020 Reported: 12/28/2020 21:08 Lactic w Rfx (if elevated) 1.5 MilliMolesPerLiter_[Substance_Concentration_Units] (0.5-2.0) N (Normal) Note: Responsible Observer: Lactic Acid Lactic Acid 400.2831 (G) Reviewed by Maya Barron MD on 01/03; All test results are final unless otherwise noted. Blood Culture (Incl Anaerobic)-1 [facility] Ordered by Maya Barron MD on 12/28/2020 Collected: 12/28/2020 Reported: 01/02/2021 20:38 Bacteria Bld Cult See Note None Note: NG5DNo growth.K3DE5DQK GROWTH AFTE R 5 DAYS Reviewed by Maya Barron MD on 01/03; All test results are final unless otherwise noted. Blood Culture (Incl Anaerobic)-2 [facility] Ordered by Maya Barron MD on 12/28/2020 Collected: 12/28/2020 Reported: 01/02/2021 20:38 Bacteria Bld Cult See Note None Note: NG5DNo growth.A8LC2JLL GROWTH AFTE R 5 DAYS Reviewed by Maya Barron MD on 01/03; All test results are final unless otherwise noted. Reported Physicians [facility] Ordered by Maya Barron MD on 12/28/2020 Collected: 12/28/2020 Reported: 01/02/2021 20:38 Reported Physicians See Note None Note: Reported Physicians:Ordering: Renetta Recinosttending: Sammie Ann To: Maya Barron Reviewed by Maya Barron MD on 01/03; All test results are final unless otherwise noted. D-DIMER [facility] Ordered by Maya Barron MD on 12/28/2020 Collected: 12/28/2020 Reported: 12/28/2020 03:46 D-DIMER QUANT 0.36 ug/mL (0.27 - 0.50) None Note: Responsible Observer: (LBS) Reviewed by Maya Barron MD on 12/29; All test results are final unless otherwise noted. Reported Physicians [facility] Ordered by Maya Barron MD on 12/28/2020 Collected: 12/28/2020 Reported: 12/28/2020 03:46 Reported Physicians See Note None Note: Reported Physicians:Ordering: TURR IN, RICCARDOAttending: ROBERTO, RICCARDOConsulting: MAYA BARRONCopyifan To: ROBERTO, RICCARDOCopy To: JESSEE MEJIA Reviewed by Maya Barron MD on 12/29; All test results are final unless otherwise noted. LIPASE SERUM [facility] Ordered by Maya Barron MD on 12/28/2020 Collected: 12/28/2020 Reported: 12/28/2020 04:05 LIPASE 33 U/L (13 - 60) None Note: Responsible Observer: (MLE) Reviewed by Maya Barron MD on 12/29; All test results are final unless otherwise noted. Reported Physicians [facility] Ordered by Maya Barron MD on 12/28/2020 Collected: 12/28/2020 Reported: 12/28/2020 04:06 Reported Physicians See Note None Note: Reported Physicians:Ordering: TURR IN, RICCARDOAttending: TURRIN, RICCARDOConsulting: Rubén BARRON To: TURRIN, RICCARDOCopy To: TURRIN, JESSEE Reviewed by Maya Barron MD on 12/29; All test results are final unless otherwise noted. PT/PTT [facility] Ordered by Maya Barron MD [...] Thrombosis, Pulmonary Embolus, Tissue heart valves, Acute ND Atrial Fibrillation, Valvular heart disease and recurrent Systemic Embolism. - International Normalized Ratio (INR): 2.5 - 3.5 for Mechanical Prosthetic valve.Responsible Observer: (LBS) Reviewed by Maya Barron MD on 12/29; All test results are final unless otherwise noted. Reported Physicians [facility] Ordered by Maya Barron MD on 12/28/2020 Collected: 12/28/2020 Reported: 12/28/2020 03:46 Reported Physicians See Note None Note: Reported Physicians:Ordering: MARCELINO INJESSEEAttending: JESSEE MEJIAConsulting: Rubén BARRON To: Saleem MEJIA To: JESSEE MEJIA Reviewed by Maya Barron MD on 12/29; All test results are final unless otherwise noted. CBC W/AUTOMATED DIFF [facility] Ordered by Maya Barron MD [...] are final unless otherwise noted. Reported Physicians [facility] Ordered by Maya Barron MD on 12/28/2020 Collected: 12/28/2020 Reported: 12/28/2020 03:34 Reported Physicians See Note None Note: Reported Physicians:Ordering: MARCELINO IN, RICCARDOAttending: ARIA MEJIACARConsulting: Rubén BARRON To: ARIA MEJIACARDOCopy To: JESSEE MEJIA Reviewed by Maya Barron MD on 12/29; All test results are final unless otherwise noted. COMPREHENSIVE METABOLIC PANEL [facility] Ordered by Maya Barron [...] are final unless otherwise noted. Reported Physicians [facility] Ordered by Maya Barron MD on 12/28/2020 Collected: 12/28/2020 Reported: 12/28/2020 04:05 Reported Physicians See Note None Note: Reported Physicians:Ordering: HOLLYR IN, RICCARDOAttending: ROBERTO, RICCARDOConsulting: Rubén BARRON To: ARIA MEJIACARDOCopy To: JESSEE MEJIA Reviewed by Maya Barron MD on 12/29; All test results are final unless otherwise noted. TROPONIN T [facility] Ordered by Maya Barron MD on 12/28/2020 Collected: 12/28/2020 Reported: 12/28/2020 04:05 TROPONIN T <0.01 NG/ML (0.00 - 0.10) None Note: TROPONIN T0.1 ng/ml Recommended as the clinical threshold value forThafsa Hussein.Responsible Observer: (MLE) Reviewed by Maya Barron MD on 12/29; All test results are final unless otherwise noted. Reported Physicians [facility] Ordered by Maya Barron MD on 12/28/2020 Collected: 12/28/2020 Reported: 12/28/2020 04:05 Reported Physicians See Note None Note: Reported Physicians:Ordering: MARCELINO IN, RICCARDOAttending: ROBERTO RICCARDOConsulting: Rubén BARRON To: ARIA MEJIACARDOCopyifan To: JESSEE MEJIA Reviewed by Maya Barron MD on 12/29; All test results are final unless otherwise noted. Cepheid SARS/FLU/RSV RT-PCR [facility] Ordered by Maya Barron MD [...] FDA under an EUA for use [facility] [id number]-htu CoV RNA Resp Ql ТАТЬЯНА+jfjqlAWZLRUHGWDQ-JDT-7 NOT [id number]-FGB-6 NOT KUNVDERF47927-2ZBWIM RNA Resp Ql ТАТЬЯНА+probeLNNFLUAInfluenza A Not Det [id number] A Not Ibnxngkd29124-8LGBMN RNA Resp Ql ТАТЬЯНА+probeLNNINBInfluenza B Not [id number] B Not Pekihzsb46447- 2RSV RNA Resp Ql ТАТЬЯНА+probeLNNRSVRSV Not [id number] Not Detected Reviewed by Maya Barron MD on 12/25; All test results are final unless otherwise noted. Reported Physicians [facility] Ordered by Maya Barron MD on 12/23/2020 Collected: 12/23/2020 Reported: 12/23/2020 13:41 Reported Physicians See Note None Note: Reported Physicians:Ordering: Aj Ferreiraending: Jos Rivas To: Maya Barron Reviewed by Maya Barron MD on 12/25; All test results are final unless otherwise noted. UA W/ CULTURE IF ABNORMAL [facility] Ordered by Maya Barron MD on 12/23/2020 Collected: 12/23/2020 Reported: 12/23/2020 08:51 Urobilinogen Ur Ql See Note (0.2-1 EU/dl) None Note: 1 EU/dl1 EU/[id number] EU/dlRe sponsible Observer: UROBILINOGEN UROBILINOGEN 300.4500 (C) RBC # Ur Strip NEGATIVE (NEGATIVE) None Note: Responsible Observer: BLOOD BLOOD 300.4652 (C) Prot Ur Ql Strip See Note (NEGATIVE) None Note: [id number] ble Observer: PROTEIN PROTEIN 300.3750 (C) Ketones Ur Ql Strip See Note (NEGATIVE) None Note: [id number] EResponsible Observer: KETONE KETONE 300.3900 (C) Bilirub Ur Ql Strip.auto See Note (NEGATIVE) None Note: [id number] EResponsible Observer: BILIRUBIN BILIRUBIN 300.4550 (C) Glucose Ur Strip.auto-mCnc NEGATIVE (NEGATIVE) None Note: Responsible Observer: GLUCOSE GLUC OSE 300.3850 (C) Appearance Ur See Note (CLEAR) A (Abnormal) Note: TURBIDTURBIDLTURBIDResponsible Obs erver: APPEARANCE APPEARANCE 300.3400 (A) Color Ur See Note None Note: YELLOWYELLOWLYELLOWResponsible Obs erver: COLOR COLOR 300.3330 (A) Leukocyte esterase Ur Ql Strip See Note (NEGATIVE) None Note: [id number]@DO MICR O!!!!A Culture has been added to this specimen per established criteriaResponsible Observer: LEUKOCYTES LEUKOCYTES 300.3576 (C) Nitrite Ur Ql Strip See Note (NEGATIVE) None Note: [id number] EResponsible Observer: NITRITE NITRITE 300.3652 (B) pH [...] are final unless otherwise noted. Urine culture [facility] Ordered by Maya Barron MD on 12/23/2020 Collected: 12/23/2020 Reported: 12/24/2020 10:07 Urine culture result See Note None Note: Less than 10,000 CFU/MLStaph spp, Strep spp, Corynebacterium sppProbable contaminants no senst done NOTES See Note None Note: @12/23/20 0851: Urine culture addchandler d. RFLXG = CULT.ADD. Reviewed by Maya Barron MD on 12/25; All test results are final unless otherwise noted. Reported Physicians [facility] Ordered by Maya Barron MD on 12/23/2020 Collected: 12/23/2020 Reported: 12/24/2020 10:07 Reported Physicians See Note None Note: Reported Physicians:Ordering: Cristino FerreiraAttending: Jos Rivas To: Maya Barron Reviewed by Maya Barron MD on 12/25; All test results are final unless otherwise noted. ADD ON MICROSCOPIC [facility] Ordered by Maya Barron MD on 12/23/2020 Collected: 12/23/2020 Reported: 12/23/2020 08:51 ADD ON MICROSCOPIC See Note (0-5) None Note: NOTES OTHER/NOT INTERPRETED Bacteria UrnS Ql Micro MODERATE AMOUNT Bacteria UrnS Ql Micro MODERATE AMOUNT Bacteria UrnS Ql Micro L Bacteria UrnS Ql Micro Bacteria UrnS Ql Micro Bacteria UrnS Ql Micro Bacteria UrnS Ql Micro [id number] Bacteria UrnS Ql Micro Bacteria UrnS Ql [...] are final unless otherwise noted. Reported Physicians [facility] Ordered by Maya Barron MD on 12/23/2020 Collected: 12/23/2020 Reported: 12/23/2020 08:52 Reported Physicians See Note None Note: Reported Physicians:Ordering: Cristino FerreiraAttending: Jos Rivas To: Maya Barron Reviewed by Maya Barron MD on 12/25; All test results are final unless otherwise noted. MAGNESIUM [facility] Ordered by Maya Barron MD on 12/23/2020 Collected: 12/23/2020 Reported: 12/23/2020 09:11 Magnesium SerPl-mCnc 2.1 MilliGramsPerDeciLiter_[Mass_Concentration_Units] (1.3-2.7) N (Normal) Note: Responsible Observer: Magnesium Ma gnesium 400.3300 (G) NOTES See Note None Note: ADD-ON Reviewed by Maya Barron MD on 12/25; All test results are final unless otherwise noted. Reported Physicians [facility] Ordered by Maya Barron MD on 12/23/2020 Collected: 12/23/2020 Reported: 12/23/2020 09:11 Reported Physicians See Note None Note: Reported Physicians:Ordering: Aj Ferreiraending: Jos Rivas To: Maya Barron Reviewed by Maya Barron MD on 12/25; All test results are final unless otherwise noted. CBC W AUTO DIFF [facility] Ordered by Maya Barron MD [...] Auto See Note (0-2) N (Normal) Note: [id number] Ob server administrator: IG% IG% 100.1375 (B) Hct VFr Bld [...] test results are final unless otherwise noted. [facility] Ordered by Maya Barron MD [...] are final unless otherwise noted. Reported Physicians [facility] Ordered by Maya Barron MD on 12/23/2020 Collected: 12/23/2020 Reported: 12/23/2020 08:29 Reported Physicians See Note None Note: Reported Physicians:Ordering: Cristino FerreiraAttending: Cristino RivasCopyifan To: Maya Barron Reviewed by Maya Barron MD on 12/25; All test results are final unless otherwise noted. TROPONIN [facility] Ordered by Maya Barron MD on 12/23/2020 Collected: 12/23/2020 Reported: 12/23/2020 09:39 Troponin I SerPl-mCnc Less Than 0.015 (0.00-0.09) N (Normal) Note: Less than 0.09 NG/ML Negative 0.10 - 0.77 NG/ML High Risk0.78 NG/ML or Greater PositiveThe WHO defined the cutoff (definition for diagnosis of ND)for this method as 0.78 ng/ml.Responsible Observer: Troponin I Troponin I 600.1101 (G) NOTES See Note None Note: ADD-ON Reviewed by Maya Barron MD on 12/25; All test results are final unless otherwise noted. Reported Physicians [facility] Ordered by Maya Barron MD on 12/23/2020 Collected: 12/23/2020 Reported: 12/23/2020 09:39 Reported Physicians See Note None Note: Reported Physicians:Ordering: Cristino FerreiraAttending: Cristino RivasCopy To: Maya Barron Reviewed by Maya Barron MD on 12/25; All test results are final unless otherwise noted. D-DIMER [facility] Ordered by Maya Barron MD [...] are final unless otherwise noted. Reported Physicians [facility] Ordered by Maya Barron MD on 12/23/2020 Collected: 12/23/2020 Reported: 12/23/2020 09:39 Reported Physicians See Note None Note: Reported Physicians:Ordering: Cristino FerreiraAttending: Jos Rivas To: Maya Barron Reviewed by Maya Barron MD on 12/25; All test results are final unless otherwise noted. LIPASE SERUM [facility] Ordered by Maya Barron MD on 12/16/2020 Collected: 12/16/2020 Reported: 12/16/2020 16:29 LIPASE 27 U/L (13 - 60) None Note: Responsible Observer: (DW) Reviewed by Maya Barron MD on 12/18; All test results are final unless otherwise noted. Reported Physicians [facility] Ordered by Maya Barron MD on 12/16/2020 Collected: 12/16/2020 Reported: 12/16/2020 16:29 Reported Physicians See Note None Note: Reported Physicians:Ordering: VENUS ALONSOAttending: ALLYN PAPPASConsulting: Rubén BARRON To: Miguel Gonsalez To: ALLYN PAPPAS Reviewed by Maya Barron MD on 12/18; All test results are final unless otherwise noted. TROPONIN T [facility] Ordered by Maya Barron MD on 12/16/2020 Collected: 12/16/2020 Reported: 12/16/2020 16:30 TROPONIN T <0.01 NG/ML (0.00 - 0.10) None Note: TROPONIN T0.1 ng/ml Recommended as the clinical threshold value forTroponin T.Responsible Observer: (ABIOLA) Reviewed by Maya Barron MD on 12/18; All test results are final unless otherwise noted. Reported Physicians [facility] Ordered by Maya Barron MD on 12/16/2020 Collected: 12/16/2020 Reported: 12/16/2020 16:30 Reported Physicians See Note None Note: Reported Physicians:Ordering: VENUS ALONSOAttending: ALLYN PAPPASConopaling: Rubén BARRON To: Miguel Gonsalez To: ALLYN PAPPAS Reviewed by Maya Barron MD on 12/18; All test results are final unless otherwise noted. TSH HIGHLY SENSITIVE [facility] Ordered by Maya Barron MD on 12/16/2020 Collected: 12/16/2020 Reported: 12/16/2020 17:28 TSH 1.41 uIU/mL (0.47 - 5.01) None Note: Responsible Observer: (DW) Reviewed by Maya Barron MD on 12/18; All test results are final unless otherwise noted. Reported Physicians [facility] Ordered by Maya Barron MD on 12/16/2020 Collected: 12/16/2020 Reported: 12/16/2020 17:28 Reported Physicians See Note None Note: Reported Physicians:Ordering: VENUS ALONSOAttending: ALLYN PAPPASConsulting: Rubén BARRON To: Miguel Gonsalez To: ALLYN PAPPAS Reviewed by Maya Barron MD on 12/18; All test results are final unless otherwise noted. PT/PTT [facility] Ordered by Maya Barron MD [...] Thrombosis, Pulmonary Embolus, Tissue heart valves, Acute ND Atrial Fibrillation, Valvular heart disease and recurrent Systemic Embolism. - International Normalized Ratio (INR): 2.5 - 3.5 for Mechanical Prosthetic valve.Responsible Observer: (ABIOLA) Reviewed by Maya Barron MD on 12/18; All test results are final unless otherwise noted. Reported Physicians [facility] Ordered by Maya Barron MD on 12/16/2020 Collected: 12/16/2020 Reported: 12/16/2020 16:30 Reported Physicians See Note None Note: Reported Physicians:Ordering: Sunshine ALONSOending: ALLYN PAPPASConsulting: Rubén BARRON To: Miguel Gonsalez To: ALLYN PAPPAS Reviewed by Maya Barron MD on 12/18; All test results are final unless otherwise noted. CBC W/AUTOMATED DIFF [facility] Ordered by Maya Barron MD [...] (4.2 - 11.0) None Note: Responsible Observer: (ABIOLA) Reviewed by Maya Barron MD on 12/18; All test results are final unless otherwise noted. Reported Physicians [facility] Ordered by Maya Barron MD on 12/16/2020 Collected: 12/16/2020 Reported: 12/16/2020 16:00 Reported Physicians See Note None Note: Reported Physicians:Ordering: Sunshine ALONSOending: ALLYN PAPPASConsulting: Rubén BARRON To: Miguel Gonsalez To: ALLYN PAPPAS Reviewed by Maya Barron MD on 12/18; All test results are final unless otherwise noted. COMPREHENSIVE METABOLIC PANEL [facility] Ordered by Maya Barron [...] are final unless otherwise noted. Reported Physicians [facility] Ordered by Maya Barron MD on 12/16/2020 Collected: 12/16/2020 Reported: 12/16/2020 16:30 Reported Physicians See Note None Note: Reported Physicians:Ordering: Sunshine ALONSOending: ALLYN PAPPASConsulting: Rubén BARRON To: Miguel Gonsalez To: ALLYN PAPPAS Reviewed by Maya Barron MD on 12/18; All test results are final unless otherwise noted. CBC W AUTO DIFF [facility] Ordered by Maya Barron MD [...] Auto See Note (0-2) N (Normal) Note: [id number] Ob server administrator: IG% IG% 100.1375 (B) Hct VFr Bld [...] results are final unless otherwise noted. PT/PTT [facility] Ordered by Maya Barron MD [...] results are final unless otherwise noted. CMP [facility] Ordered by Maya Barron MD [...] are final unless otherwise noted. Reported Physicians [facility] Ordered by Maya Barron MD on 12/13/2020 Collected: 12/13/2020 Reported: 12/13/2020 19:02 Reported Physicians See Note None Note: Reported Physicians:Ordering: Edgar Omerttending: Kevin Orozco To: Maya Barron Reviewed by Maya Barron MD on 12/15; All test results are final unless otherwise noted. TSH [facility] Ordered by Maya Barron MD on 12/13/2020 Collected: 12/13/2020 Reported: 12/13/2020 19:02 TSH SerPl DL<=0.005 mIU/L-aCnc 1.02 MicroInternationalUnitsPerMilliLiter_[Arbitrary_Con (0.35-5. 50) N (Normal) Note: Responsible Observer: TSH TSH 600 .7055 (D) Reviewed by Maya Barron MD on 12/15; All test results are final unless otherwise noted. Reported Physicians [facility] Ordered by Maya Barron MD on 12/13/2020 Collected: 12/13/2020 Reported: 12/13/2020 19:02 Reported Physicians See Note None Note: Reported Physicians:Ordering: Edgar Omerttending: Kevin Orozco To: Maya Barron Reviewed by Maya Barron MD on 12/15; All test results are final unless otherwise noted. TROPONIN [facility] Ordered by Maya Barron MD on 12/13/2020 Collected: 12/13/2020 Reported: 12/13/2020 19:02 Troponin I SerPl-mCnc Less Than 0.015 (0.00-0.09) N (Normal) Note: Less than 0.09 NG/ML Negative 0.10 - 0.77 NG/ML High Risk0.78 NG/ML or Greater PositiveThe WHO defined the cutoff (definition for diagnosis of ND)for this method as 0.78 ng/ml.Responsible Observer: Troponin I Troponin I 600.1101 (G) Reviewed by Maya Barron MD on 12/15; All test results are final unless otherwise noted. Reported Physicians [facility] Ordered by Maya Barron MD on 12/13/2020 Collected: 12/13/2020 Reported: 12/13/2020 19:02 Reported Physicians See Note None Note: Reported Physicians:Ordering: Conchis Omerending: Kevin Orozco To: Maya Barron Reviewed by Maya Barron MD on 12/15; All test results are final unless otherwise noted. UA W/ CULTURE IF ABNORMAL [facility] Ordered by Maya Barron MD on 12/13/2020 Collected: 12/13/2020 Reported: 12/13/2020 18:32 Urobilinogen Ur Ql See Note (0.2-1 EU/dl) None Note: 0.2 EU/dl0.2 EU/[id number] E U/dlResponsible Observer: UROBILINOGEN UROBILINOGEN 300.4500 (C) RBC # Ur Strip NEGATIVE (NEGATIVE) None Note: Responsible Observer: BLOOD BLOOD 300.4652 (C) Prot Ur Ql Strip See Note (NEGATIVE) None Note: [id number] EResponsible Observer: PROTEIN PROTEIN 300.3750 (C) Ketones Ur Ql Strip See Note (NEGATIVE) None Note: [id number] EResponsible Observer: KETONE KETONE 300.3900 (C) Bilirub Ur Ql Strip.auto See Note (NEGATIVE) None Note: [id number] EResponsible Observer: BILIRUBIN BILIRUBIN 300.4550 (C) Glucose Ur Strip.auto-mCnc NEGATIVE (NEGATIVE) None Note: Responsible Observer: GLUCOSE GLUC OSE 300.3850 (C) Appearance Ur See Note (CLEAR) None Note: CLEARCLEARLCLEARResponsible Observ er: APPEARANCE APPEARANCE 300.3400 (A) Color Ur See Note None Note: YELLOWYELLOWLYELLOWResponsible Obs erver: COLOR COLOR 300.3330 (A) Leukocyte esterase Ur Ql Strip See Note (NEGATIVE) None Note: [id number]@DO MICR O!!!!A Culture has been added to this specimen per established criteriaResponsible Observer: LEUKOCYTES LEUKOCYTES 300.3576 (C) Nitrite Ur Ql Strip See Note (NEGATIVE) None Note: [id number] EResponsible Observer: NITRITE NITRITE 300.3652 (B) pH [...] are final unless otherwise noted. Urine culture [facility] Ordered by Maya Barron MD on 12/13/2020 Collected: 12/13/2020 Reported: 12/14/2020 13:24 Bacteria Ur Cult See Note None Note: NGNo growth.L1NG NOTES See Note None Note: @12/13/20 1832: Urine culture adde d. RFLXG = CULT.ADD. Reviewed by Maya Barron MD on 12/15; All test results are final unless otherwise noted. Reported Physicians [facility] Ordered by Maya Barron MD on 12/13/2020 Collected: 12/13/2020 Reported: 12/14/2020 13:24 Reported Physicians See Note None Note: Reported Physicians:Ordering: Conchis Omerending: Kevin Orozco To: Maya Barron Reviewed by Maya Barron MD on 12/15; All test results are final unless otherwise noted. ADD ON MICROSCOPIC [facility] Ordered by Maya Barron MD on 12/13/2020 Collected: 12/13/2020 Reported: 12/13/2020 18:32 ADD ON MICROSCOPIC See Note (0-5) None Note: NOTES OTHER/NOT INTERPRETED Bacteria UrnS Ql Micro MODERATE AMOUNT Bacteria UrnS Ql Micro MODERATE AMOUNT Bacteria UrnS Ql Micro L Bacteria UrnS Ql Micro Bacteria UrnS Ql Micro Bacteria UrnS Ql Micro Bacteria UrnS Ql Micro [id number] Bacteria UrnS Ql Micro Bacteria UrnS Ql [...] are final unless otherwise noted. Reported Physicians [facility] Ordered by Maya Barron MD on 12/13/2020 Collected: 12/13/2020 Reported: 12/13/2020 18:33 Reported Physicians See Note None Note: Reported Physicians:Ordering: Conchis Omerending: Kevin Orozco To: Maya Barron Reviewed by Maya Barron MD on 12/15; All test results are final unless otherwise noted. TROPONIN T [facility] Ordered by Maya Barron MD on 12/09/2020 Collected: 12/09/2020 Reported: 12/09/2020 01:32 TROPONIN T <0.01 NG/ML (0.00 - 0.10) None Note: TROPONIN T0.1 ng/ml Recommended as the clinical threshold value forTroponin T.Responsible Observer: (AB) Reviewed by Maya Barron MD on 12/12; All test results are final unless otherwise noted. Reported Physicians [facility] Ordered by Maya Barron MD on 12/09/2020 Collected: 12/09/2020 Reported: 12/09/2020 01:32 Reported Physicians See Note None Note: Reported Physicians:Ordering: MARQUISE TOMLINSON CAttending: MARQUISE SOTOConsulting: Rubén BARRON To: Clare SOTO To: MARQUISE SOTO Reviewed by Maya Barron MD on 12/12; All test results are final unless otherwise noted. TROPONIN T [facility] Ordered by Maya Barron MD on 12/08/2020 Collected: 12/08/2020 Reported: 12/08/2020 22:36 TROPONIN T <0.01 NG/ML (0.00 - 0.10) None Note: TROPONIN T0.1 ng/ml Recommended as the clinical threshold value forTroponin T.Responsible Observer: (AB) Reviewed by Maya Barron MD on 12/12; All test results are final unless otherwise noted. Reported Physicians [facility] Ordered by Maya Barron MD on 12/08/2020 Collected: 12/08/2020 Reported: 12/08/2020 22:36 Reported Physicians See Note None Note: Reported Physicians:Ordering: MARQUISE TOMLINSON CAttending: MARQUISE SOTOConsulting: Rubén BARRON To: Clare SOTO To: MARQUISE SOTO Reviewed by Maya Barron MD on 12/12; All test results are final unless otherwise noted. COMPREHENSIVE METABOLIC PANEL [facility] Ordered by Maya Barron [...] are final unless otherwise noted. Reported Physicians [facility] Ordered by Maya Barron MD on 12/08/2020 Collected: 12/08/2020 Reported: 12/08/2020 22:36 Reported Physicians See Note None Note: Reported Physicians:Ordering: MARQUISE TOMLINSON CAttending: MAQRUISE SOTOConopaling: Rubén BARRON To: Clare SOTO To: MARQUISE SOTO Reviewed by Maya Barron MD on 12/12; All test results are final unless otherwise noted. LIPASE SERUM [facility] Ordered by Maya Barron MD on 12/08/2020 Collected: 12/08/2020 Reported: 12/08/2020 22:32 LIPASE 33 U/L (13 - 60) None Note: Responsible Observer: (AB) Reviewed by Maya Barron MD on 12/12; All test results are final unless otherwise noted. Reported Physicians [facility] Ordered by Maya Barron MD on 12/08/2020 Collected: 12/08/2020 Reported: 12/08/2020 22:32 Reported Physicians See Note None Note: Reported Physicians:Ordering: MARQUISE TOMLINSON CAttending: MARQIUSE SOTOConconcepcionlting: Rubén BARRON To: Clare SOTO To: MARQUISE SOTO Reviewed by Maya Barron MD on 12/12; All test results are final unless otherwise noted. TROPONIN [facility] Ordered by Maya Barron MD on 12/01/2020 Collected: 12/01/2020 Reported: 12/01/2020 18:18 Troponin I SerPl-mCnc Less Than 0.015 (0.00-0.09) N (Normal) Note: Less than 0.09 NG/ML Negative 0.10 - 0.77 NG/ML High Risk0.78 NG/ML or Greater PositiveThe WHO defined the cutoff (definition for diagnosis of ND)for this method as 0.78 ng/ml.Responsible Observer: Troponin I Troponin I 600.1101 (G) Reviewed by Maya Barron MD on 12/04; All test results are final unless otherwise noted. Reported Physicians [facility] Ordered by Maya Barron MD on 12/01/2020 Collected: 12/01/2020 Reported: 12/01/2020 18:19 Reported Physicians See Note None Note: Reported Physicians:Ordering: Sara Kaurending: Adam Pardo To: Maya Barron Reviewed by Maya Barron MD on 12/04; All test results are final unless otherwise noted. CBC W AUTO DIFF [facility] Ordered by Maya Barron MD [...] Auto See Note (0-2) N (Normal) Note: [id number] Ob server administrator: IG% IG% 100.1375 (B) Hct VFr Bld [...] test results are final unless otherwise noted. [facility] Ordered by Maya Barron MD [...] results are final unless otherwise noted. D-DIMER [facility] Ordered by Maya Barron MD [...] are final unless otherwise noted. Reported Physicians [facility] Ordered by Maya Barron MD on 12/01/2020 Collected: 12/01/2020 Reported: 12/01/2020 18:19 Reported Physicians See Note None Note: Reported Physicians:Ordering: Choco KaurAttending: Adam Pardo To: Maya Barron Reviewed by Maya Barron MD on 12/04; All test results are final unless otherwise noted. Cepheid CT/NG RT-PCR [facility] Ordered by Maya Barron MD [...] may result in failure to detect the targetorganisms.29792-1B trach DNA Vag Ql ТАТЬЯНА+probeLNCHLAMNC. trachomatis NOT [id number]. trachomatis NOT POKJFQPD86852-2C gonorrhoea rRNA Vag Ql ТАТЬЯНА+probeLNNEIGNN.gonorrhoeae NOT [id number].gonorrhoeae NOT DETECTED Reviewed by Maya Barron MD on 11/29; All test results are final unless otherwise noted. Reported Physicians [facility] Ordered by Maya Barron MD on 11/29/2020 Collected: 11/29/2020 Reported: 11/29/2020 07:03 Reported Physicians See Note None Note: Reported Physicians:Ordering: Estela SamuelAttending: Vianey Up To: Maya Barron Reviewed by Maya Barron MD on 11/29; All test results are final unless otherwise noted. AFFIRM [facility] Ordered by Maya Barron MD on 11/29/2020 Collected: 11/29/2020 Reported: 11/30/2020 13:21 Dionna species DNA Probe NOT DETECTED (NOT DETECTED) None Note: THIS TEST WAS PERFORMED AT:[facility] [employer] [address] [address]RHQMGO MERATI,CLAUDYesponsible Observer: Dionna DNA Dionna species DNA Probe [id number] 913.2350 ([employer] [facility]) Gardnerella DNA Probe DETECTED (NOT DETECTED) H (High) Note: Increased levels of G. vaginalis m ay not be significantin the absence of signs and symptoms of bacterialvaginosis.Responsible Observer: Gardnerella DNA Gardnerella DNA Probe [id number] 913.2345 ([employer] [facility]) Trichomonas DNA Probe NOT DETECTED (NOT DETECTED) None Note: Responsible Observer: Trichomonas DNA Trichomonas DNA Probe [id number] 913.2340 ([employer] [facility]) Reviewed by Maya Barron MD on 12/01; All test results are final unless otherwise noted. Reported Physicians [facility] Ordered by Maya Barron MD on 11/29/2020 Collected: 11/29/2020 Reported: 11/30/2020 13:21 Reported Physicians See Note None Note: Reported Physicians:Ordering: Ricmartha aShayanineAttending: RicShay castorenaanineCopy To: Maya Barron Reviewed by Maya Barron MD on 12/01; All test results are final unless otherwise noted. UA W/ CULTURE IF ABNORMAL [facility] Ordered by Maya Barron MD on 11/29/2020 Collected: 11/29/2020 Reported: 11/29/2020 04:49 Urobilinogen Ur Ql See Note (0.2-1 EU/dl) None Note: 0.2 EU/dl0.2 EU/[id number] E U/dlResponsible Observer: UROBILINOGEN UROBILINOGEN 300.4500 (C) RBC # Ur Strip NEGATIVE (NEGATIVE) None Note: Responsible Observer: BLOOD BLOOD 300.4652 (C) Prot Ur Ql Strip See Note (NEGATIVE) None Note: [id number] EResponsible Observer: PROTEIN PROTEIN 300.3750 (C) Ketones Ur Ql Strip See Note (NEGATIVE) None Note: [id number] EResponsible Observer: KETONE KETONE 300.3900 (C) Bilirub Ur Ql Strip.auto See Note (NEGATIVE) None Note: [id number] EResponsible Observer: BILIRUBIN BILIRUBIN 300.4550 (C) Glucose Ur Strip.auto-mCnc NEGATIVE (NEGATIVE) None Note: Responsible Observer: GLUCOSE GLUC OSE 300.3850 (C) Appearance Ur See Note (CLEAR) None Note: CLEARCLEARLCLEARResponsible Observ er: APPEARANCE APPEARANCE 300.3400 (A) Color Ur See Note None Note: YELLOWYELLOWLYELLOWResponsible Obs erver: COLOR COLOR 300.3330 (A) Leukocyte esterase Ur Ql Strip See Note (NEGATIVE) None Note: [id number]@DO MICR O!!!!A Culture has been added to this specimen per established criteriaResponsible Observer: LEUKOCYTES LEUKOCYTES 300.3576 (C) Nitrite Ur Ql Strip See Note (NEGATIVE) None Note: [id number] EResponsible Observer: NITRITE NITRITE 300.3652 (B) pH [...] are final unless otherwise noted. Urine culture [facility] Ordered by Maya Barron MD on 11/29/2020 Collected: 11/29/2020 Reported: 11/30/2020 07:23 Bacteria Ur Cult See Note None Note: NGNo growth.L1NG NOTES See Note None Note: @11/29/20 0450: Urine culture adde d. RFLXG = CULT.ADD. Reviewed by Maya Barron MD on 12/01; All test results are final unless otherwise noted. Reported Physicians [facility] Ordered by Maya Barron MD on 11/29/2020 Collected: 11/29/2020 Reported: 11/30/2020 07:23 Reported Physicians See Note None Note: Reported Physicians:Ordering: Estela SamuelAttending: Vianey Up To: Maya Barron Reviewed by Maya Barron MD on 12/01; All test results are final unless otherwise noted. ADD ON MICROSCOPIC [facility] Ordered by Maya Barron MD [...] are final unless otherwise noted. Reported Physicians [facility] Ordered by Maya Barron MD on 11/29/2020 Collected: 11/29/2020 Reported: 11/29/2020 04:51 Reported Physicians See Note None Note: Reported Physicians:Ordering: Gideon Samuelending: Vianey Up To: Maya Barron Reviewed by Maya Barron MD on 11/29; All test results are final unless otherwise noted. TROPONIN [facility] Ordered by Maya Barron MD on 11/20/2020 Collected: 11/20/2020 Reported: 11/20/2020 20:04 Troponin I SerPl-mCnc Less Than 0.015 (0.00-0.09) N (Normal) Note: Less than 0.09 NG/ML Negative 0.10 - 0.77 NG/ML High Risk0.78 NG/ML or Greater PositiveThe WHO defined the cutoff (definition for diagnosis of ND)for this method as 0.78 ng/ml.Responsible Observer: Troponin I Troponin I 600.1101 (G) Reviewed by Maya Barron MD on 11/22; All test results are final unless otherwise noted. Reported Physicians [facility] Ordered by Maya Barron MD on 11/20/2020 Collected: 11/20/2020 Reported: 11/20/2020 20:05 Reported Physicians See Note None Note: Reported Physicians:Ordering: Les Vanegastending: Fady Raza To: Maya Barron Reviewed by Maya Barron MD on 11/22; All test results are final unless otherwise noted. Cepheid SARS/FLU/RSV RT-PCR [facility] Ordered by Maya Barron MD [...] by FDA under an EUA for use byComputer Software InnovationshoriMyCheckdchrajalwikf53906-9FZZR-lji CoV RNA Resp Ql ТАТЬЯНА+mmkpeHMDUTWTBMQN-JSK-2 NOT [id number]-IDX-6 NOT EFYLSKRD12870-7URUXH RNA Resp Ql ТАТЬЯНА+probeLNNFLUAInfluenza A Not Det [id number] A Not Vsubwimb88633-1KFYYM RNA Resp Ql ТАТЬЯНА+probeLNNINBInfluenza B Not [id number] B Not Uksefdmm60651- 2RSV RNA Resp Ql ТАТЬЯНА+probeLNNRSVRSV Not [id number] Not Detected Reviewed by Maya Barron MD on 11/20; All test results are final unless otherwise noted. Reported Physicians [facility] Ordered by Maya Barron MD on 11/18/2020 Collected: 11/18/2020 Reported: 11/18/2020 23:58 Reported Physicians See Note None Note: Reported Physicians:Ordering: Aj Snowending: Jos Castellanos To: Maya Barron Reviewed by Maya Barron MD on 11/20; All test results are final unless otherwise noted. URINE DRUG SCREEN -([facility]) [facility] Ordered by Maya Barron MD on 11/17/2020 Collected: 11/17/2020 Reported: 11/17/2020 14:19 PCP Ur Ql Scn>25 ng/mL See Note (Cutoff 25) None Note: [id number] E@Reenter manual test result: NEGATIVE@by Claudia Tello at 11/17/20 1414.Responsible Observer: PCP Urine Phencyclidine (PCP) Scrn 400.5120 (A) THC Ur Ql Scn>50 ng/mL See Note (Cutoff 50) None Note: [id number] EResponsible Observer: Marijuana (THC) Ur Marijuana (THC) Screen 400.5110 (A) Benzodiaz Ur Ql Scn See Note (Cutoff 150) None Note: [id number] E@Reenter manual test result: NEGATIVE@by Claudia Tello at 11/17/20 1418.Responsible Observer: Benzodiazepines Urine Benzodiazepines Screen 400.5170 (A) Opiates Ur Ql Scn See Note (Cutoff 100) None Note: [id number] E@Reenter manual test result: NEGATIVE@by Claudia Tello at 11/17/20 1418.Responsible Observer: Opiates Urine Opiates Screen 400.5150 (A) Tricyclics Ur Ql Scn See Note (Cutoff 300) None Note: [id number] E@Reenter manual test result: NEGATIVE@by Claudia Tello at 11/17/20 1418.Responsible Observer: TCA Ur Tricyclic Antidepressants 400.5180 (A) Cocaine Ur Ql Scn See Note (Cutoff 150) None Note: [id number] E@Reenter manual test result: NEGATIVE@by Claudia Tello at 11/17/20 1417.Responsible Observer: Cocaine Urine Cocaine Screen 400.5130 (A) Propoxyph+Nor Ur Ql Scn See Note (Cutoff 300) None Note: [id number] E@Reenter manual test result: NEGATIVE@by Claudia Tello at 11/17/20 1418.Responsible Observer: Propoxyphene Urine Propoxyphene Screen 400.5220 (A) Methadone Ur Ql Scn See Note (Cutoff 200) None Note: [id number] E@Reenter manual test result: NEGATIVE@by Claudia Tello at 11/17/20 1418.Responsible Observer: Methadone Urine Methadone Screen 400.5190 (A) Methamphet Ur Ql Scn See Note (Cutoff 500) None Note: [id number] E@Reenter manual test result: NEGATIVE@by Clauida Tello at 11/17/20 1417.Responsible Observer: Methamphetamine Urine Methamphetamines Screen 400.5140 (A) oxyCODONE Ur Ql Scn See Note (Cutoff 100) None Note: [id number] E@Reenter manual test result: NEGATIVE@by Claudia Tello at 11/17/20 1418.Responsible Observer: Oxycodone Urine Oxycodone Screen 400.5210 (A) Buprenorphine Ur Ql See Note (Cutoff 10) None Note: [id number] E@Reenter manual test result: NEGATIVE@by Claudia Tello at 11/17/20 1419.Responsible Observer: Buprenorphine Urine Buprenorphine Screen 400.5230 (A) Amphetamines Ur Ql Scn>500 ng/mL See Note (Cutoff 500) None Note: [id number] E@Reenter manual test result: NEGATIVE@by Claudia Tello at 11/17/20 1418.Responsible Observer: Amphetamines Urine Amphetamines Screen 400.5160 (A) Barbiturates Ur Ql Scn>200 ng/mL See Note (Cutoff 200) None Note: [id number] E@Reenter manual test result: NEGATIVE@by Claudia Tello at 11/17/20 1418.Responsible Observer: Barbiturates Urine Barbiturates 400.5200 (A) Reviewed by Maya Barron MD on 11/20; All test results are final unless otherwise noted. IRON [facility] Ordered by Maya Barron MD on 11/17/2020 Collected: 11/17/2020 Reported: 11/17/2020 14:34 Iron SerPl-mCnc 39 (50-170) L (Low) Note: Iron values may be falsely elevate d in serum samples frompatients treated with anticoagulants (e.g., hemodialysispatients)Responsible Observer: Iron Level Iron Level 400.9002 (A) Reviewed by Maya Barron MD on 11/20; All test results are final unless otherwise noted. Reported Physicians [facility] Ordered by Maya Barron MD on 11/17/2020 Collected: 11/17/2020 Reported: 11/17/2020 14:34 Reported Physicians See Note None Note: Reported Physicians:Ordering: Maya AlvarengaAttending: Maya Barron Reviewed by Maya Barron MD on 11/20; All test results are final unless otherwise noted. CBC W AUTO DIFF [facility] Ordered by Maya Barron MD [...] Auto See Note (0-2) N (Normal) Note: 0.60.9H02804854906.6Responsible Ob server administrator: IG% IG% 100.1375 (B) Hct VFr Bld [...] results are final unless otherwise noted. HA1C [facility] Ordered by Maya Barron MD [...] blood glucose control.* High risk of developing mcfp complications such asretinopathy, nephropathy, neuropathy, cardiopathy, etc. [...] results are final unless otherwise noted. CMP [facility] Ordered by Maya Barron MD [...] final unless otherwise noted. Vitamin D 25-OH [facility] Ordered by Maya Barron MD [...] VIT D, (D2,D3), LC/MS/MS is recommended: ordercode 75833 (patients >2yrs).See Note 1Note 1For additional information, please refer [email or web address].Moodlerooms/faq/[email or web address](This link is being provided for informational/educational purposes only.)THIS TEST WAS PERFORMED AT:[facility] [id number]CLAUDY ONEILLesponsible Observer: Vitamin D 25-OH Vitamin D 25-Hydroxy [id number] 916.0157 ([employer] [facility]) Reviewed by Maya Barron MD on 11/20; All test results are final unless otherwise noted. Reported Physicians [facility] Ordered by Maya Barron MD on 11/17/2020 Collected: 11/17/2020 Reported: 11/18/2020 08:17 Reported Physicians See Note None Note: Reported Physicians:Ordering: Cara Alvarengaending: Maya Barron Reviewed by Maya Barron MD on 11/20; All test results are final unless otherwise noted. FREE T4 (LAB) [facility] Ordered by Maya Barron MD on 11/17/2020 Collected: 11/17/2020 Reported: 11/17/2020 14:34 T4 Free SerPl-mCnc 0.78 NanoGramsPerDeciLiter_[Mass_Concentration_Units] (0.89-1.76) L (Low) Note: Responsible Observer: FREE T4 Free Thyroxine 600.7005 (D) Reviewed by Maya Barron MD on 11/20; All test results are final unless otherwise noted. Reported Physicians [facility] Ordered by Maya Barron MD on 11/17/2020 Collected: 11/17/2020 Reported: 11/17/2020 14:34 Reported Physicians See Note None Note: Reported Physicians:Ordering: Maya AlvarengaAttending: Maya Barron Reviewed by Maya Barron MD on 11/20; All test results are final unless otherwise noted. TSH [facility] Ordered by Maya Barron MD on 11/17/2020 Collected: 11/17/2020 Reported: 11/17/2020 14:34 TSH SerPl DL<=0.005 mIU/L-aCnc 1.38 MicroInternationalUnitsPerMilliLiter_[Arbitrary_Con (0.35-5. 50) N (Normal) Note: Responsible Observer: TSH TSH 600 .7055 (D) Reviewed by Maya Barron MD on 11/20; All test results are final unless otherwise noted. Reported Physicians [facility] Ordered by Maya Barron MD on 11/17/2020 Collected: 11/17/2020 Reported: 11/17/2020 14:34 Reported Physicians See Note None Note: Reported Physicians:Ordering: Maya AlvarengaAttending: Maya Barron Reviewed by Maya Barron MD on 11/20; All test results are final unless otherwise noted. TROPONIN [facility] Ordered by Maya Barron MD on 10/23/2020 Collected: 10/23/2020 Reported: 10/23/2020 01:03 Troponin I SerPl-mCnc Less Than 0.015 (0.00-0.09) N (Normal) Note: Less than 0.09 NG/ML Negative 0.10 - 0.77 NG/ML High Risk0.78 NG/ML or Greater PositiveThe WHO defined the cutoff (definition for diagnosis of ND)for this method as 0.78 ng/ml.Responsible Observer: Troponin I Troponin I 600.1101 (G) Reviewed by Maya Barron MD on 10/23; All test results are final unless otherwise noted. Reported Physicians [facility] Ordered by Maya Barron MD on 10/23/2020 Collected: 10/23/2020 Reported: 10/23/2020 01:03 Reported Physicians See Note None Note: Reported Physicians:Ordering: Yoli NapolesAttending: Charles Silva To: Maya Barron Reviewed by Maya Barron MD on 10/23; All test results are final unless otherwise noted. BHCG Quantitative [facility] Ordered by Maya Barron MD on 10/23/2020 Collected: 10/23/2020 Reported: 10/23/2020 01:21 B-HCG SerPl-aCnc 84444 MilliInternationalUnitsPerMilliLiter_[Arbitrary_Con (0-10) H (High) Note: @Instrument will [...] are final unless otherwise noted. Reported Physicians [facility] Ordered by Maya Barron MD on 10/23/2020 Collected: 10/23/2020 Reported: 10/23/2020 01:21 Reported Physicians See Note None Note: Reported Physicians:Ordering: Yoli NapolesAttending: Charles Silva To: Maya Barron Reviewed by Maya Barron MD on 10/23; All test results are final unless otherwise noted. CBC W AUTO DIFF [facility] Ordered by Maya Barron MD [...] Auto See Note (0-2) N (Normal) Note: 0.30.9H77706797184.3Responsible Ob server administrator: IG% IG% 100.1375 (B) Hct VFr Bld [...] test results are final unless otherwise noted. [facility] Ordered by Maya Barron MD [...] results are final unless otherwise noted. D-DIMER [facility] Ordered by Maya Barron MD [...] are final unless otherwise noted. Reported Physicians [facility] Ordered by Maya Barron MD on 10/23/2020 Collected: 10/23/2020 Reported: 10/23/2020 01:22 Reported Physicians See Note None Note: Reported Physicians:Ordering: Cliff Napolesending: Charles Silva To: Maya Barron Reviewed by Maya Barron MD on 10/23; All test results are final unless otherwise noted. FREE T4 (LAB) [facility] Ordered by Maya Barron MD on 10/21/2020 Collected: 10/21/2020 Reported: 10/21/2020 15:17 T4 Free SerPl-mCnc 0.97 NanoGramsPerDeciLiter_[Mass_Concentration_Units] (0.89-1.76) N (Normal) Note: Responsible Observer: FREE T4 Free Thyroxine 600.7005 (D) Reviewed by Maya Barron MD on 10/23; All test results are final unless otherwise noted. Reported Physicians [facility] Ordered by Maya Barron MD on 10/21/2020 Collected: 10/21/2020 Reported: 10/21/2020 15:17 Reported Physicians See Note None Note: Reported Physicians:Ordering: Math is, TimothyAttending: Edvin, TimothyCopy To: Maya Barron Reviewed by Maya Barron MD on 10/23; All test results are final unless otherwise noted. TSH [facility] Ordered by Maya Barron MD on 10/21/2020 Collected: 10/21/2020 Reported: 10/21/2020 15:17 TSH SerPl DL<=0.005 mIU/L-aCnc 1.40 MicroInternationalUnitsPerMilliLiter_[Arbitrary_Con (0.35-5. 50) N (Normal) Note: Responsible Observer: TSH TSH 600 .7055 (D) Reviewed by Maya Barron MD on 10/23; All test results are final unless otherwise noted. Reported Physicians [facility] Ordered by Maya Barron MD on 10/21/2020 Collected: 10/21/2020 Reported: 10/21/2020 15:17 Reported Physicians See Note None Note: Reported Physicians:Ordering: Math is, TimothyAttending: Pardo, TimothyCopy To: Maya Barron Reviewed by Maya Barron MD on 10/23; All test results are final unless otherwise noted. UA W/ CULTURE IF ABNORMAL [facility] Ordered by Maya Barron MD on 10/19/2020 Collected: 10/19/2020 Reported: 10/19/2020 16:31 Urobilinogen Ur Ql See Note (0.2-1 EU/dl) None Note: 0.2 EU/dl0.2 EU/[id number] E U/dlResponsible Observer: UROBILINOGEN UROBILINOGEN 300.4500 (C) RBC # Ur Strip NEGATIVE (NEGATIVE) None Note: Responsible Observer: BLOOD BLOOD 300.4652 (C) Prot Ur Ql Strip See Note (NEGATIVE) None Note: [id number] EResponsible Observer: PROTEIN PROTEIN 300.3750 (C) Ketones Ur Ql Strip See Note (NEGATIVE) None Note: [id number] EResponsible Observer: KETONE KETONE 300.3900 (C) Bilirub Ur Ql Strip.auto See Note (NEGATIVE) None Note: [id number] EResponsible Observer: BILIRUBIN BILIRUBIN 300.4550 (C) Glucose Ur Strip.auto-mCnc 100 mg/dl (NEGATIVE) None Note: Responsible Observer: GLUCOSE GLUC OSE 300.3850 (C) Appearance Ur See Note (CLEAR) None Note: CLEARCLEARLCLEARResponsible Observ er: APPEARANCE APPEARANCE 300.3400 (A) Color Ur See Note None Note: YELLOWYELLOWLYELLOWResponsible Obs erver: COLOR COLOR 300.3330 (A) Leukocyte esterase Ur Ql Strip See Note (NEGATIVE) None Note: [id number] EResponsible Observer: LEUKOCYTES LEUKOCYTES 300.3576 (C) Nitrite Ur Ql Strip See Note (NEGATIVE) None Note: [id number] EResponsible Observer: NITRITE NITRITE 300.3652 (B) pH [...] are final unless otherwise noted. Reported Physicians [facility] Ordered by Maya Barron MD on 10/19/2020 Collected: 10/19/2020 Reported: 10/19/2020 16:31 Reported Physicians See Note None Note: Reported Physicians:Ordering: Les Vanegas AAttending: Fady Raza To: Maya Barron Reviewed by Maya Barron MD on 10/20; All test results are final unless otherwise noted. URINE DRUG SCREEN -([facility]) [facility] Ordered by Maya Barron MD on 10/19/2020 Collected: 10/19/2020 Reported: 10/19/2020 16:40 PCP Ur Ql Scn>25 ng/mL See Note (Cutoff 25) None Note: [id number] E@Reenter manual test result: NEGATIVE@by Jia Lentz at 10/19/20 1639.Responsible Observer: PCP Urine Phencyclidine (PCP) Scrn 400.5120 (A) THC Ur Ql Scn>50 ng/mL See Note (Cutoff 50) None Note: [id number] EResponsible Observer: Marijuana (THC) Ur Marijuana (THC) Screen 400.5110 (A) Benzodiaz Ur Ql Scn See Note (Cutoff 150) None Note: [id number] E@Reenter manual test result: NEGATIVE@by Jia Lentz at 10/19/20 1640.Responsible Observer: Benzodiazepines Urine Benzodiazepines Screen 400.5170 (A) Opiates Ur Ql Scn See Note (Cutoff 100) None Note: [id number] E@Reenter manual test result: NEGATIVE@by Jia Lentz at 10/19/20 1640.Responsible Observer: Opiates Urine Opiates Screen 400.5150 (A) Tricyclics Ur Ql Scn See Note (Cutoff 300) None Note: [id number] E@Reenter manual test result: NEGATIVE@by Jia Lentz at 10/19/20 1640.Responsible Observer: TCA Ur Tricyclic Antidepressants 400.5180 (A) Cocaine Ur Ql Scn See Note (Cutoff 150) None Note: [id number] E@Reenter manual test result: NEGATIVE@by Jia Lentz at 10/19/20 1640.Responsible Observer: Cocaine Urine Cocaine Screen 400.5130 (A) Propoxyph+Nor Ur Ql Scn See Note (Cutoff 300) None Note: [id number] E@Reenter manual test result: NEGATIVE@by Jia Lentz at 10/19/20 1640.Responsible Observer: Propoxyphene Urine Propoxyphene Screen 400.5220 (A) Methadone Ur Ql Scn See Note (Cutoff 200) None Note: [id number] E@Reenter manual test result: NEGATIVE@by Jia Lentz at 10/19/20 1640.Responsible Observer: Methadone Urine Methadone Screen 400.5190 (A) Methamphet Ur Ql Scn See Note (Cutoff 500) None Note: [id number] E@Reenter manual test result: NEGATIVE@by Jia Lentz at 10/19/20 1640.Responsible Observer: Methamphetamine Urine Methamphetamines Screen 400.5140 (A) oxyCODONE Ur Ql Scn See Note (Cutoff 100) None Note: [id number] E@Reenter manual test result: NEGATIVE@by Jia Lentz at 10/19/20 1640.Responsible Observer: Oxycodone Urine Oxycodone Screen 400.5210 (A) Buprenorphine Ur Ql See Note (Cutoff 10) None Note: [id number] E@Reenter manual test result: NEGATIVE@by Jia Lentz at 10/19/20 1640.Responsible Observer: Buprenorphine Urine Buprenorphine Screen 400.5230 (A) Amphetamines Ur Ql Scn>500 ng/mL See Note (Cutoff 500) None Note: [id number] E@Reenter manual test result: NEGATIVE@by Jia Lentz at 10/19/20 1640.Responsible Observer: Amphetamines Urine Amphetamines Screen 400.5160 (A) Barbiturates Ur Ql Scn>200 ng/mL See Note (Cutoff 200) None Note: [id number] E@Reenter manual test result: NEGATIVE@by Jia Lentz at 10/19/20 1640.Responsible Observer: Barbiturates Urine Barbiturates 400.5200 (A) Reviewed by Maya Barron MD on 10/20; All test results are final unless otherwise noted. Reported Physicians [facility] Ordered by Maya Barron MD on 10/19/2020 Collected: 10/19/2020 Reported: 10/19/2020 16:40 Reported Physicians See Note None Note: Reported Physicians:Ordering: Les Vanegas: Fady Raza To: Maya Barron Reviewed by Maya Barron MD on 10/20; All test results are final unless otherwise noted. TSH w/ reflex to Free T4 [facility] Ordered by Maya Barron MD on 10/19/2020 Collected: 10/19/2020 Reported: 10/19/2020 16:08 TSH SerPl DL<=0.005 mIU/L-aCnc 1.66 MicroInternationalUnitsPerMilliLiter_[Arbitrary_Con (0.35-5. 50) N (Normal) Note: Responsible Observer: TSH TSH 600 .7060 (D) Reviewed by Maya Barron MD on 10/20; All test results are final unless otherwise noted. Reported Physicians [facility] Ordered by Maya Barron MD on 10/19/2020 Collected: 10/19/2020 Reported: 10/19/2020 16:08 Reported Physicians See Note None Note: Reported Physicians:Ordering: Les Vanegas: Fady Raza To: Maya Barron Reviewed by Maya Barron MD on 10/20; All test results are final unless otherwise noted. TROPONIN [facility] Ordered by Maya Barron MD on 10/19/2020 Collected: 10/19/2020 Reported: 10/19/2020 16:10 Troponin I SerPl-mCnc Less Than 0.015 (0.00-0.09) N (Normal) Note: Less than 0.09 NG/ML Negative 0.10 - 0.77 NG/ML High Risk0.78 NG/ML or Greater PositiveThe WHO defined the cutoff (definition for diagnosis of ND)for this method as 0.78 ng/ml.Responsible Observer: Troponin I Troponin I 600.1101 (G) Reviewed by Maya Barron MD on 10/20; All test results are final unless otherwise noted. Reported Physicians [facility] Ordered by Maya Barron MD on 10/19/2020 Collected: 10/19/2020 Reported: 10/19/2020 16:10 Reported Physicians See Note None Note: Reported Physicians:Ordering: Les Vanegasding: Fady Raza To: Maya Barron Reviewed by Maya Barron MD on 10/20; All test results are final unless otherwise noted. CMP [facility] Ordered by Maya Barron MD [...] unless otherwise noted. CBC W AUTO DIFF [facility] Ordered by Maya Barron MD [...] Auto See Note (0-2) N (Normal) Note: [id number] Ob server administrator: IG% IG% 100.1375 (B) Hct VFr Bld [...] are final unless otherwise noted. Reported Physicians [facility] Ordered by Maya Barron MD on 10/19/2020 Collected: 10/19/2020 Reported: 10/19/2020 16:33 Reported Physicians See Note None Note: Reported Physicians:Ordering: Les Vanegas: Fady Raza To: Maya Barron Reviewed by Maya Barron MD on 10/20; All test results are final unless otherwise noted. CRP, C-REACTIVE PROTEIN [facility] Ordered by Maya Barron MD on 10/19/2020 Collected: 10/19/2020 Reported: 10/19/2020 16:08 CRP SerPl-mCnc 7.5 MilliGramsPerLiter_[Mass_Concentration_Units] (0.0-5.0) H (High) Note: Responsible Observer: CRP C-Reacti ve Protein 401.4355 (H) Reviewed by Maya Barron MD on 10/20; All test results are final unless otherwise noted. SED RATE [facility] Ordered by Maya Barron MD on 10/19/2020 Collected: 10/19/2020 Reported: 10/19/2020 16:32 ESR Bld Qn Westrgrn 22 (0-20) H (High) Note: [facility] result: 22@by Jia Lentz at 10/19/20 1632.Responsible Observer: SED RATE SED RATE 100.6400 (B) Reviewed by Maya Barron MD on 10/20; All test results are final unless otherwise noted. Reported Physicians [facility] Ordered by Maya Barron MD on 10/19/2020 Collected: 10/19/2020 Reported: 10/19/2020 16:33 Reported Physicians See Note None Note: Reported Physicians:Ordering: Les Vanegas: Fady Raza To: Maya Barron Reviewed by Maya Barron MD on 10/20; All test results are final unless otherwise noted. PT/PTT [facility] Ordered by Maya Barron MD [...] are final unless otherwise noted. Reported Physicians [facility] Ordered by Maya Barron MD on 10/08/2020 Collected: 10/08/2020 Reported: 10/08/2020 03:22 Reported Physicians See Note None Note: Reported Physicians:Ordering: Sana Recinosending: Sammie Ann To: Maya Barron Reviewed by Maya Barron MD on 10/09; All test results are final unless otherwise noted. CBC W AUTO DIFF [facility] Ordered by Maya Barron MD [...] Auto See Note (0-2) N (Normal) Note: 0.10.8Q87940068634.1Responsible Ob server administrator: IG% IG% 100.1375 (B) Hct VFr Bld [...] results are final unless otherwise noted. MAGNESIUM [facility] Ordered by Maya Barron MD on 10/08/2020 Collected: 10/08/2020 Reported: 10/08/2020 03:17 Magnesium SerPl-mCnc 1.8 MilliGramsPerDeciLiter_[Mass_Concentration_Units] (1.3-2.7) N (Normal) Note: Responsible Observer: Magnesium Ma gnesium 400.3300 (G) Reviewed by Maya Barron MD on 10/09; All test results are final unless otherwise noted. D-DIMER [facility] Ordered by Maya Barron MD [...] are final unless otherwise noted. Reported Physicians [facility] Ordered by Maya Barron MD on 10/08/2020 Collected: 10/08/2020 Reported: 10/08/2020 03:27 Reported Physicians See Note None Note: Reported Physicians:Ordering: Sana Recinosending: Sammie Ann To: Maya Barron Reviewed by Maya Barron MD on 10/09; All test results are final unless otherwise noted. BMP [facility] Ordered by Maya Barron MD [...] are final unless otherwise noted. Reported Physicians [facility] Ordered by Maya Barron MD on 10/08/2020 Collected: 10/08/2020 Reported: 10/08/2020 03:21 Reported Physicians See Note None Note: Reported Physicians:Ordering: Sana Recinosending: Sammie Ann To: Maya Barron Reviewed by Maya Barron MD on 10/09; All test results are final unless otherwise noted. TSH w/ reflex to Free T4 [facility] Ordered by Maya Barron MD on 10/04/2020 Collected: 10/04/2020 Reported: 10/04/2020 17:42 TSH SerPl DL<=0.005 mIU/L-aCnc 1.92 MicroInternationalUnitsPerMilliLiter_[Arbitrary_Con (0.35-5. 50) N (Normal) Note: Responsible Observer: TSH TSH 600 .7060 (D) Reviewed by Maya Barron MD on 10/09; All test results are final unless otherwise noted. Reported Physicians [facility] Ordered by Maya Barron MD on 10/04/2020 Collected: 10/04/2020 Reported: 10/04/2020 17:42 Reported Physicians See Note None Note: Reported Physicians:Ordering: Les Vanegastending: Fady Raza To: Maya Barron Reviewed by Maya Barron MD on 10/09; All test results are final unless otherwise noted. CBC W AUTO DIFF [facility] Ordered by Maya Barron MD [...] Auto See Note (0-2) N (Normal) Note: [id number] Ob server administrator: IG% IG% 100.1375 (B) Hct VFr Bld [...] test results are final unless otherwise noted. [facility] Ordered by Maya Barron MD [...] are final unless otherwise noted. Reported Physicians [facility] Ordered by Maya Barron MD on 10/04/2020 Collected: 10/04/2020 Reported: 10/04/2020 17:42 Reported Physicians See Note None Note: Reported Physicians:Ordering: Les Vanegas: Fady Raza To: Maya Barron Reviewed by Maya Barron MD on 10/09; All test results are final unless otherwise noted. TROPONIN [facility] Ordered by Maya Barron MD on 10/04/2020 Collected: 10/04/2020 Reported: 10/04/2020 17:35 Troponin I SerPl-mCnc Less Than 0.015 (0.00-0.09) N (Normal) Note: Less than 0.09 NG/ML Negative 0.10 - 0.77 NG/ML High Risk0.78 NG/ML or Greater PositiveThe WHO defined the cutoff (definition for diagnosis of ND)for this method as 0.78 ng/ml.Responsible Observer: Troponin I Troponin I 600.1101 (G) Reviewed by Maya Barron MD on 10/09; All test results are final unless otherwise noted. Reported Physicians [facility] Ordered by Maya Barron MD on 10/04/2020 Collected: 10/04/2020 Reported: 10/04/2020 17:35 Reported Physicians See Note None Note: Reported Physicians:Ordering: Les Vanegas: Fady Raza To: Maya Barron Reviewed by Maya Barron MD on 10/09; All test results are final unless otherwise noted. SED RATE [facility] Ordered by Maya Barron MD on 10/04/2020 Collected: 10/04/2020 Reported: 10/04/2020 18:05 ESR Bld Qn Westrgrn 16 (0-20) N (Normal) Note: @Reenter manual test result: 16@by Jia Lentz at 10/04/20 1805.Responsible Observer: SED RATE SED RATE 100.6400 (B) Reviewed by Maya Barron MD on 10/09; All test results are final unless otherwise noted. Reported Physicians [facility] Ordered by Maya Barron MD on 10/04/2020 Collected: 10/04/2020 Reported: 10/04/2020 18:06 Reported Physicians See Note None Note: Reported Physicians:Ordering: Les Vanegas AAttending: Fady Raza To: Maya Barron Reviewed by Maya Barron MD on 10/09; All test results are final unless otherwise noted. FREE T4 (LAB) [facility] Ordered by Maya Barron MD on 10/03/2020 Collected: 10/03/2020 Reported: 10/03/2020 20:08 T4 Free SerPl-mCnc 0.97 NanoGramsPerDeciLiter_[Mass_Concentration_Units] (0.89-1.76) N (Normal) Note: Responsible Observer: FREE T4 Free Thyroxine 600.7005 (D) Reviewed by Maya Barron MD on 10/04; All test results are final unless otherwise noted. Reported Physicians [facility] Ordered by Maya Barron MD on 10/03/2020 Collected: 10/03/2020 Reported: 10/03/2020 20:08 Reported Physicians See Note None Note: Reported Physicians:Ordering: Cliff Napolesending: Charles Silva To: Maya Barron Reviewed by Maya Barron MD on 10/04; All test results are final unless otherwise noted. BHCG Quantitative [facility] Ordered by Maya Barron MD on 10/03/2020 Collected: 10/03/2020 Reported: 10/03/2020 20:23 B-HCG SerPl-aCnc 66804 MilliInternationalUnitsPerMilliLiter_[Arbitrary_Con (0-10) H (High) Note: @Instrument will [...] are final unless otherwise noted. Reported Physicians [facility] Ordered by Maya Barron MD on 10/03/2020 Collected: 10/03/2020 Reported: 10/03/2020 20:23 Reported Physicians See Note None Note: Reported Physicians:Ordering: Yoli NapolesAttending: Charles Silva To: Maya Barron Reviewed by Maya Barron MD on 10/04; All test results are final unless otherwise noted. TROPONIN [facility] Ordered by Maya Barron MD on 10/03/2020 Collected: 10/03/2020 Reported: 10/03/2020 20:07 Troponin I SerPl-mCnc Less Than 0.015 (0.00-0.09) N (Normal) Note: Less than 0.09 NG/ML Negative 0.10 - 0.77 NG/ML High Risk0.78 NG/ML or Greater PositiveThe WHO defined the cutoff (definition for diagnosis of ND)for this method as 0.78 ng/ml.Responsible Observer: Troponin I Troponin I 600.1101 (G) Reviewed by Maya Barron MD on 10/04; All test results are final unless otherwise noted. Reported Physicians [facility] Ordered by Maya Barron MD on 10/03/2020 Collected: 10/03/2020 Reported: 10/03/2020 20:07 Reported Physicians See Note None Note: Reported Physicians:Ordering: Yoli NapolesAttending: Charles Silva To: Maya Barron Reviewed by Maya Barron MD on 10/04; All test results are final unless otherwise noted. MANUAL DIFF [facility] Ordered by Maya Barron MD [...] are final unless otherwise noted. Reported Physicians [facility] Ordered by Maya Barron MD on 10/03/2020 Collected: 10/03/2020 Reported: 10/03/2020 19:56 Reported Physicians See Note None Note: Reported Physicians:Ordering: Yoli NapolesAttending: Charles Silva To: Maya Barron Reviewed by Maya Barron MD on 10/04; All test results are final unless otherwise noted. CBC W AUTO DIFF [facility] Ordered by Maya Barron MD [...] Auto See Note (0-2) N (Normal) Note: [id number] Ob server administrator: IG% IG% 100.1375 (B) Hct VFr Bld [...] test results are final unless otherwise noted. [facility] Ordered by Maya Barron MD [...] are final unless otherwise noted. Reported Physicians [facility] Ordered by Maya Barron MD on 10/03/2020 Collected: 10/03/2020 Reported: 10/03/2020 20:03 Reported Physicians See Note None Note: Reported Physicians:Ordering: Yoli NapolesAttending: Charles Silva To: Maya Barron Reviewed by Maya Barron MD on 10/04; All test results are final unless otherwise noted. UA W/ CULTURE IF ABNORMAL [facility] Ordered by Maya Barron MD on 10/03/2020 Collected: 10/03/2020 Reported: 10/03/2020 19:52 Urobilinogen Ur Ql See Note (0.2-1 EU/dl) None Note: 0.2 EU/dl0.2 EU/[id number] E U/dlResponsible Observer: UROBILINOGEN UROBILINOGEN 300.4500 (C) RBC # Ur Strip NEGATIVE (NEGATIVE) None Note: Responsible Observer: BLOOD BLOOD 300.4652 (C) Prot Ur Ql Strip See Note (NEGATIVE) None Note: [id number] EResponsible Observer: PROTEIN PROTEIN 300.3750 (C) Ketones Ur Ql Strip See Note (NEGATIVE) None Note: [id number] EResponsible Observer: KETONE KETONE 300.3900 (C) Bilirub Ur Ql Strip.auto See Note (NEGATIVE) None Note: [id number] EResponsible Observer: BILIRUBIN BILIRUBIN 300.4550 (C) Glucose Ur Strip.auto-mCnc NEGATIVE (NEGATIVE) None Note: Responsible Observer: GLUCOSE GLUC OSE 300.3850 (C) Appearance Ur See Note (CLEAR) None Note: CLEARCLEARLCLEARResponsible Observ er: APPEARANCE APPEARANCE 300.3400 (A) Color Ur See Note None Note: YELLOWYELLOWLYELLOWResponsible Obs erver: COLOR COLOR 300.3330 (A) Leukocyte esterase Ur Ql Strip See Note (NEGATIVE) None Note: [id number]@DO MICR O!!!!A Culture has been added to this specimen per established criteriaResponsible Observer: LEUKOCYTES LEUKOCYTES 300.3576 (C) Nitrite Ur Ql Strip See Note (NEGATIVE) None Note: [id number] EResponsible Observer: NITRITE NITRITE 300.3652 (B) pH [...] are final unless otherwise noted. Urine culture [facility] Ordered by Maya Barron MD on 10/03/2020 Collected: 10/03/2020 Reported: 10/04/2020 13:10 Bacteria Ur Cult See Note None Note: NGNo growth.L1NG NOTES See Note None Note: @10/03/201951: Urine culture adde d. RFLXG = CULT.ADD. Reviewed by Maya Barron MD on 10/04; All test results are final unless otherwise noted. Reported Physicians [facility] Ordered by Maya Barron MD on 10/03/2020 Collected: 10/03/2020 Reported: 10/04/2020 13:10 Reported Physicians See Note None Note: Reported Physicians:Ordering: Cliff Napolesending: Charles Silva To: Maya Barron Reviewed by Maya Barron MD on 10/04; All test results are final unless otherwise noted. ADD ON MICROSCOPIC [facility] Ordered by Maya Barron MD on 10/03/2020 Collected: 10/03/2020 Reported: 10/03/2020 19:52 ADD ON MICROSCOPIC See Note (0-5) None Note: NOTES OTHER/NOT INTERPRETED Bacteria UrnS Ql Micro SMALL AMOUNT Bacteria UrnS Ql Micro SMALL AMOUNT Bacteria UrnS Ql Micro L Bacteria UrnS Ql Micro Bacteria UrnS Ql Micro Bacteria UrnS Ql Micro Bacteria UrnS Ql Micro [id number] Bacteria UrnS Ql Micro Bacteria UrnS Ql [...] are final unless otherwise noted. Reported Physicians [facility] Ordered by Maya Barron MD on 10/03/2020 Collected: 10/03/2020 Reported: 10/03/2020 19:52 Reported Physicians See Note None Note: Reported Physicians:Ordering: Cliff Napolesending: Charles Silva To: Maya Barron Reviewed by Maya Barron MD on 10/04; All test results are final unless otherwise noted. TROPONIN [facility] Ordered by Maya Barron MD on 09/18/2020 Collected: 09/18/2020 Reported: 09/18/2020 20:10 Troponin I SerPl-mCnc Less Than 0.015 (0.00-0.09) N (Normal) Note: Less than 0.09 NG/ML Negative 0.10 - 0.77 NG/ML High Risk0.78 NG/ML or Greater PositiveThe WHO defined the cutoff (definition for diagnosis of ND)for this method as 0.78 ng/ml.Responsible Observer: Troponin I Troponin I 600.1101 (G) Reviewed by Maya Barron MD on 09/20; All test results are final unless otherwise noted. Reported Physicians [facility] Ordered by Maya Barron MD on 09/18/2020 Collected: 09/18/2020 Reported: 09/18/2020 20:10 Reported Physicians See Note None Note: Reported Physicians:Ordering: Yoli NapolesAttending: Charles Silva To: Maya Barron Reviewed by Maya Barron MD on 09/20; All test results are final unless otherwise noted. CBC W AUTO DIFF [facility] Ordered by Maya Barron MD [...] Auto See Note (0-2) N (Normal) Note: 0.10.6O89922975903.1Responsible Ob server administrator: IG% IG% 100.1375 (B) Hct VFr Bld [...] test results are final unless otherwise noted. [facility] Ordered by Maya Barron MD [...] are final unless otherwise noted. Reported Physicians [facility] Ordered by Maya Barron MD on 09/18/2020 Collected: 09/18/2020 Reported: 09/18/2020 20:10 Reported Physicians See Note None Note: Reported Physicians:Ordering: Yoli NapolesAttending: Yoli SilvaCopyifan To: Maya Barron Reviewed by Maya Barron MD on 09/20; All test results are final unless otherwise noted. BHCG, QUANTITATIVE [facility] Ordered by Maya Barron MD on 09/18/2020 Collected: 09/18/2020 Reported: 09/18/2020 20:21 B-HCG [facility] 287250 MilliInternationalUnitsPerMilliLiter_[Arbitrary_Con (0-10) H (High) Note: APPROXIMATE GESTATION [...] are final unless otherwise noted. Reported Physicians [facility] Ordered by Maya Barron MD on 09/18/2020 Collected: 09/18/2020 Reported: 09/18/2020 20:22 Reported Physicians See Note None Note: Reported Physicians:Ordering: Yoli NapolesAttending: Charles Silva To: Maya Barron Reviewed by Maya Barron MD on 09/20; All test results are final unless otherwise noted. Urine culture [facility] Ordered by Cat Gutierrez RPA on 09/11/2020 Collected: 09/11/2020 Reported: 09/12/2020 13:11 Bacteria Ur Cult See Note None Note: NGNo growth.L1NG NOTES See Note None Note: GEORGIANA PICKARD IN OTHER NAME IN MEDICAL RECORD Reviewed by Cat Gutierrez RPA on 09/12; All test results are final unless otherwise noted. Reported Physicians [facility] Ordered by Cat Gutierrez RPA on 09/11/2020 Collected: 09/11/2020 Reported: 09/12/2020 13:11 Reported Physicians See Note None Note: Reported Physicians:Ordering: Cat ConwayAttending: Cat Gutierrez Reviewed by Cat Gutierrez RPA on 09/12; All test results are final unless otherwise noted. UA W/ CULTURE IF ABNORMAL [facility] Ordered by Maya Barron MD on 09/10/2020 Collected: 09/10/2020 Reported: 09/10/2020 17:48 Urobilinogen Ur Ql See Note (0.2-1 EU/dl) None Note: 0.2 EU/dl0.2 EU/[id number] E U/dlResponsible Observer: UROBILINOGEN UROBILINOGEN 300.4500 (C) RBC # Ur Strip NEGATIVE (NEGATIVE) None Note: Responsible Observer: BLOOD BLOOD 300.4652 (C) Prot Ur Ql Strip See Note (NEGATIVE) None Note: [id number] EResponsible Observer: PROTEIN PROTEIN 300.3750 (C) Ketones Ur Ql Strip See Note (NEGATIVE) None Note: [id number] ble Observer: KETONE KETONE 300.3900 (C) Bilirub Ur Ql Strip.auto See Note (NEGATIVE) None Note: [id number] EResponsible Observer: BILIRUBIN BILIRUBIN 300.4550 (C) Glucose Ur Strip.auto-mCnc NEGATIVE (NEGATIVE) None Note: Responsible Observer: GLUCOSE GLUC OSE 300.3850 (C) Appearance Ur See Note (CLEAR) None Note: CLEARCLEARLCLEARResponsible Observ er: APPEARANCE APPEARANCE 300.3400 (A) Color Ur See Note None Note: YELLOWYELLOWLYELLOWResponsible Obs erver: COLOR COLOR 300.3330 (A) Leukocyte esterase Ur Ql Strip See Note (NEGATIVE) None Note: [id number] EResponsible Observer: LEUKOCYTES LEUKOCYTES 300.3576 (C) Nitrite Ur Ql Strip See Note (NEGATIVE) None Note: [id number] EResponsible Observer: NITRITE NITRITE 300.3652 (B) pH [...] are final unless otherwise noted. Reported Physicians [facility] Ordered by Maya Barron MD on 09/10/2020 Collected: 09/10/2020 Reported: 09/10/2020 17:48 Reported Physicians See Note None Note: Reported Physicians:Ordering: Les Vanegasding: Fady Raza To: Maya Barron Reviewed by Maya Barron MD on 09/11; All test results are final unless otherwise noted. ABO/Rh Type [facility] Ordered by aMya Barron MD on 09/10/2020 Collected: 09/10/2020 Reported: 09/10/2020 15:43 Blood bank studies Yes None Note: Responsible Observer: Prev. Histor y? Previous History? 100.0800 (A) Blood Type See Note None Note: OPO PositiveLResponsible Observer: Blood Type Blood Type 110.0950 (C) Reviewed by Maya Barron MD on 09/11; All test results are final unless otherwise noted. Reported Physicians [facility] Ordered by Maya Barron MD on 09/10/2020 Collected: 09/10/2020 Reported: 09/10/2020 15:43 Reported Physicians See Note None Note: Reported Physicians:Ordering: Les Vanegas: Fady Raza To: Maya Barron Reviewed by Maya Barron MD on 09/11; All test results are final unless otherwise noted. BHCG, QUANTITATIVE [facility] Ordered by Maya Barron MD on 09/10/2020 Collected: 09/10/2020 Reported: 09/10/2020 15:48 B-HCG [facility] 65572 MilliInternationalUnitsPerMilliLiter_[Arbitrary_Con (0-10) H (High) Note: @Instrument will [...] are final unless otherwise noted. Reported Physicians [facility] Ordered by Maya Barron MD on 09/10/2020 Collected: 09/10/2020 Reported: 09/10/2020 15:49 Reported Physicians See Note None Note: Reported Physicians:Ordering: Les Vanegas: Fady Raza To: Maya Barron Reviewed by Maya Barron MD on 09/11; All test results are final unless otherwise noted. COVID QUEST [facility] Ordered by Maya Barron MD [...] findings,re- testing should be [facility]. Laboratory test results shouldalways be considered in the context of clinicalobservations and epidemiological data in making a finaldiagnosis and patient management decisions.Please review the "Fact Sheets" and FDA authorizedlabeling available for health care providers andpatients using the following websites:https://www.[employer] .Moodlerooms/home/Covid-19/HCP/NAAT/fact-wndzy3cargp://www.[employer]ood[employer]/home/Cov id-19/Patients/NAAT/fact-qjcjn4Irsj test has been authorized by the FDA under anEmergency Use Authorization (EUA) for use by authorizedlaboratories.Due to the current public health emergency, [facility] is receiving a high volume of samples [...] information about COVID-19 can be foundat the [facility] website:www.[facility].com/Covid19.THIS TEST WAS PERFORMED AT:[facility] [id number] ONEILLesponsible Observer: COVID-19 COVID-19 ТАТЬЯНА (SARS-CoV-2) [id number] 464.5946 ([employer]) Reviewed by Maya Barron MD on 08/25; All test results are final unless otherwise noted. Reported Physicians [facility] Ordered by Maya Barron MD on 08/23/2020 Collected: 08/23/2020 Reported: 08/25/2020 03:57 Reported Physicians See Note None Note: Reported Physicians:Ordering: Sana Recinosending: Sammie Ann To: Maya Barron Reviewed by Maya Barron MD on 08/25; All test results are final unless otherwise noted. Rapid Strep [facility] Ordered by Maya Barron MD on 08/15/2020 [address] [place], [address] Collected: 08/15/2020 Reported: 08/15/2020 11:47 tel :[phone] strep antigen normal (negative) N (Normal) Reviewed by Maya Barron MD on 08/15; All test results are final unless otherwise noted. Urinalysis w/out microscopy [facility] Ordered by Maya Barron MD on 08/15/2020 [address] [place], [address] Specimen Source: Urine Collected: 08/15/2020 Reporte d: 08/15/2020 11:03 tel:[phone] bilirubin normal (neg) N (Normal) blood normal [...] unless otherwise noted. Extended hours FLU/COV2 NAAT [facility] Ordered by Maya Barron MD on 08/15/2020 Collected: 08/15/2020 Reported: 08/15/2020 15:55 Extended hours FLU/COV2 NAAT See Note None Note: TNPNo Reportable ResultLTNPNo Repo rtable PfapddI7THO NOTES See Note None Note: GEORGIANAGEE PICKARD IN OTHER NAME IN MEDICAL RECORD Reviewed by Maya Barron MD on 08/16; All test results are final unless otherwise noted. Reported Physicians [facility] Ordered by Maya Barron MD on 08/15/2020 Collected: 08/15/2020 Reported: 08/15/2020 15:55 Reported Physicians See Note None Note: Reported Physicians:Ordering: Maya AlvarengaAttending: Maya Barron Reviewed by Maya Barron MD on 08/16; All test results are final unless otherwise noted. Sweta Raquel SARS/FLU [facility] Ordered by Maya Barron MD on 08/15/2020 Collected: 08/15/2020 Reported: 08/15/2020 15:55 Sweta Raquel SARS/FLU See Note None Note: Sweta Raquel is a rapid, automated q ualitative anddifferentiation of Influenza type A,B and JOUJ-BZW-8ZOQR-RT-PCR testNORMAL VALUE IS "NOT DETECTED".Limitations of the sweta raquel Influenza A/B & SNJX-VFW-2qxenu method.Modifications to manufacturers recommendation and proceduresmay alter performance of the test.Negative results do not preclude Influenza A,B or SARS- IHF5kavlddpiuv and should not be used as the [...] out diseases caused by other bacterialor viral pathogens.[id number]-avf CoV RNA Resp Ql ТАТЬЯНА+probeLNNSARS SARS-COV-2 NOT [id number]-AMX-6 NOT [id number] RNA Resp Ql ТАТЬЯНА+probeLNNFLUAInfluenza A Not [id number] A Not Cxiphajh25838-7OSOQM RNA Resp Ql ТАТЬЯНА+probeLNNINBInfluenza B Not [id number] B Not Detected NOTES See Note None Note: GEORGIANA PICKARD IN OTHER NAME IN MEDICAL RECORD Reviewed by Maya Barron MD on 08/18; All test results are final unless otherwise noted. Throat culture [facility] Ordered by Maya Barron MD on 08/15/2020 Collected: 08/15/2020 Reported: 08/17/2020 06:37 Throat culture results Normal Deisy None Reviewed by Maya Barron MD on 08/18; All test results are final unless otherwise noted. Reported Physicians [facility] Ordered by Maya Barron MD on 08/15/2020 Collected: 08/15/2020 Reported: 08/17/2020 06:37 Reported Physicians See Note None Note: Reported Physicians:Ordering: Maya AlvarengaAttending: Maya Barron Reviewed by Maya Barron MD on 08/18; All test results are final unless otherwise noted. HPVI [facility] Ordered by Cat Gutierrez RPA on 08/09/2020 Collected: 08/09/2020 Reported: 08/15/2020 06:53 Thin Prep Vag See Note None Note: See scanned reportSee scanned repo rtLSee scanned reportResponsible Observer: TP w/HPV if ASC Thinprep w/HPV if ASCUS 805.1454 ([facility]) NOTES See Note None Note: [id number] Technique: BRUS H-SPATULABody Site: CERVIX Reviewed by Cat Gutierrez RPA on 08/15; All test results are final unless otherwise noted. Reported Physicians [facility] Ordered by Cat Gutierrez RPA on 08/09/2020 Collected: 08/09/2020 Reported: 08/15/2020 06:53 Reported Physicians See Note None Note: Reported Physicians:Ordering: Atte memeing: Rigo Gutierrez To: Maya Barron Reviewed by Cat Gutierrez RPA on 08/15; All test results are final unless otherwise noted. GCAMP [facility] Ordered by Cat Gutierrez RPA on 08/09/2020 Collected: 08/09/2020 Reported: 08/11/2020 06:52 C trach rRNA XXX Ql ТАТЬЯНА+probe See Note (NOT DETECTED) None Note: NOT DETECTEDNOT [id number] 6NOT DETECTEDResponsible Observer: C.Trach RNA Chlamydia trachomatis DNA-ТАТЬЯНА [id number] 913.9900 ([facility]) N gonorrhoea rRNA XXX Ql ТАТЬЯНА+probe See Note (NOT DETECTED) None Note: NOT DETECTEDNOT [id number] 6NOT DETECTEDResponsible Observer: GC RNA Neisseria gonorrhoeae DNA -ТАТЬЯНА [id number] 913.9905 ([employer]) Chlamydia/GC DNA Note SEE NOTE None Note: The analytical performance charact eristics of thisassay, when used to test SurePath(TM) specimens have beendetermined by [facility]. The modifications havenot been cleared or approved by the FDA. This assay hasbeen validated pursuant to the CLIA regulations and isused for clinical purposes.For additional information, please refer tohttps://education.[employer].Moodlerooms/faq/ZVR294(This link is being provided for information/educational purposes only.)THIS TEST WAS PERFORMED AT:[facility] [address]KAMBGRACE MIGUELANGELMDResponsible Observer: GC/Chlam Note Chlamydia/GC DNA Note [id number] 913.9907 (A) NOTES See Note None Note: PICKARD:IN OTHER NAME IN MEDICAL RECORD Reviewed by Cat Gutierrez RPA on 08/12; All test results are final unless otherwise noted. Reported Physicians [facility] Ordered by Cat Gutierrez RPA on 08/09/2020 Collected: 08/09/2020 Reported: 08/11/2020 06:52 Reported Physicians See Note None Note: Reported Physicians:Ordering: Atte ndcristiane: Rigo Gutierrez To: Maya Barron Reviewed by Cat Gutierrez RPA on 08/12; All test results are final unless otherwise noted. AFFIRM [facility] Ordered by Cat Gutierrez RPA on 08/09/2020 Collected: 08/09/2020 Reported: 08/11/2020 06:52 Dionna species DNA Probe NOT DETECTED (NOT DETECTED) None Note: THIS TEST WAS PERFORMED AT:[facility] [address]PTWDMC MERATI,MDResponsible Observer: Dionna DNA Dionna species DNA Probe [id number] 913.2350 ([facility]) Gardnerella DNA Probe DETECTED (NOT DETECTED) H (High) Note: Increased levels of G. vaginalis m ay not be significantin the absence of signs and symptoms of bacterialvaginosis.Responsible Observer: Gardnerella DNA Gardnerella DNA Probe [id number] 913.2345 ([facility]) Trichomonas DNA Probe NOT DETECTED (NOT DETECTED) None Note: Responsible Observer: Trichomonas DNA Trichomonas DNA Probe [id number] 913.2340 ([facility]) NOTES See Note None Note: PICKARD:IN OTHER NAME IN MEDICAL RECORD Reviewed on 08/11/2020; All test result s are final unless otherwise noted. Reported Physicians [facility] Ordered by Cat Gutierrez RPA on 08/09/2020 Collected: 08/09/2020 Reported: 08/11/2020 06:52 Reported Physicians See Note None Note: Reported Physicians:Ordering: Atte nding: Rigo Gutierrez To: Maya Barron Reviewed on 08/11/2020; All test result s are final unless otherwise noted. URINALYSIS [facility] Ordered by Cat Gutierrez RPA on 08/09/2020 Collected: 08/09/2020 Reported: 08/09/2020 12:23 Urobilinogen Ur Ql See Note (0.2-1 EU/dl) None Note: 1 EU/dl1 EU/[id number] EU/dlRe sponsible Observer: UROBILINOGEN UROBILINOGEN 300.4500 (C) RBC # Ur Strip NEGATIVE (NEGATIVE) None Note: Responsible Observer: BLOOD BLOOD 300.4650 (C) Prot Ur Ql Strip See Note (NEGATIVE) None Note: [id number] ble Observer: PROTEIN PROTEIN 300.3750 (C) Ketones Ur Ql Strip See Note (NEGATIVE) None Note: [id number] ble Observer: KETONE KETONE 300.3900 (C) Bilirub Ur Ql Strip.auto See Note (NEGATIVE) None Note: [id number] EResponsible Observer: BILIRUBIN BILIRUBIN 300.4550 (C) Glucose Ur Strip.auto-mCnc NEGATIVE (NEGATIVE) None Note: Responsible Observer: GLUCOSE GLUC OSE 300.3850 (C) Appearance Ur See Note (CLEAR) None Note: CLEARCLEARLCLEARResponsible Observ er: APPEARANCE APPEARANCE 300.3400 (A) Color Ur See Note None Note: DARK YELLOWDARK YELLOWLDARK YELLOW Responsible Observer: COLOR COLOR 300.3300 (A) Leukocyte esterase Ur Ql Strip See Note (NEGATIVE) None Note: [id number]@DO MICR O!!!!Responsible Observer: LEUKOCYTES LEUKOCYTES 300.3575 (C) Nitrite Ur Ql Strip See Note (NEGATIVE) None Note: [id number] EResponsible Observer: NITRITE NITRITE 300.3650 (B) pH [...] are final unless otherwise noted. Urine culture [facility] Ordered by Cat Gutierrez RPA on 08/09/2020 Collected: 08/09/2020 Reported: 08/10/2020 08:33 Bacteria Ur Cult See Note None Note: NGNo growth.L1NG Reviewed by Cat Gutierrez RPA on 08/14; All test results are final unless otherwise noted. MEDMATCH [facility] Ordered by Cat Gutierrez RPA on 08/09/2020 Collected: 08/09/2020 Reported: 08/13/2020 15:56 MEDMATCH See scanned report None Note: Responsible Observer: MEDMATCH MED MATCH 910.13460 ([facility]) Reviewed by Cat Gutierrez RPA on 08/14; All test results are final unless otherwise noted. Reported Physicians [facility] Ordered by Cat Gutierrez RPA on 08/09/2020 Collected: 08/09/2020 Reported: 08/13/2020 15:56 Reported Physicians See Note None Note: Reported Physicians:Ordering: Attchandler barton: Rigo Gutierrez To: Maya Barron Reviewed by Cat Gutierrez RPA on 08/14; All test results are final unless otherwise noted. ADD ON MICROSCOPIC [facility] Ordered by Cat Gutierrez RPA on 08/09/2020 Collected: 08/09/2020 Reported: 08/09/2020 12:23 ADD ON MICROSCOPIC See Note (0-5) H (High) Note: NOTES OTHER/NOT INTERPRETED Bacteria UrnS Ql Micro SMALL AMOUNT Bacteria UrnS Ql Micro SMALL AMOUNT Bacteria UrnS Ql Micro L Bacteria UrnS Ql Micro Bacteria UrnS Ql Micro Bacteria UrnS Ql Micro Bacteria UrnS Ql Micro [id number] Bacteria UrnS Ql Micro Bacteria UrnS Ql [...] Ql Micro Mucous Threads UrnS Ql Micro [id number] Mucous Threads UrnS Ql Micro Mucous Threads UrnS Ql Micro MODERATE AMOUNT WBC # Ur Manual 5-8 @08/09/20 1210: UA W/ MICRO added. RFLXG = UMIC.Method of Collection:: Clean CatchResponsible Observer: WBC WBC 300.5000 (A) Reviewed by Cat Gutierrez RPA on 08/12; All test results are final unless otherwise noted. Reported Physicians [facility] Ordered by Cat Gutierrez RPA on 08/09/2020 Collected: 08/09/2020 Reported: 08/10/2020 17:47 Reported Physicians See Note None Note: Reported Physicians:Ordering: Atte oralia: Rigo Gutierrez To: Maya Barron Reviewed by Cat Gutierrez RPA on 08/12; All test results are final unless otherwise noted. CBC [facility] Ordered by Cat Gutierrez RPA [...] Auto See Note (0-2) N (Normal) Note: [id number] Ob server administrator: IG% IG% 100.1375 (B) Hct VFr Bld [...] results are final unless otherwise noted. TSH [facility] Ordered by Cat Gutierrez RPA on 08/09/2020 Collected: 08/09/2020 Reported: 08/09/2020 14:24 TSH SerPl DL<=0.005 mIU/L-aCnc 1.18 MicroInternationalUnitsPerMilliLiter_[Arbitrary_Con (0.35-5. 50) N (Normal) Note: Responsible Observer: TSH TSH 600 .7055 (D) Reviewed by Cat Gutierrez RPA on 08/14; All test results are final unless otherwise noted. Lead (Venous) Wh.Bld [facility] Ordered by Cat Gutierrez RPA on 08/09/2020 Collected: 08/09/2020 Reported: 08/10/2020 17:47 Lead Bld-sCnc <1 (<5) None Note: See Note 1Note 1This test was faith granados and its analytical performancecharacteristics have been determined by [facility]. It has not been cleared or approved by theA. This assay has been validated pursuant to the CLIAregulations and is used for clinical purposes.THIS TEST WAS PERFORMED AT:[facility] [address]PQOIEACLAUDY ONEILLesponsible Observer: Lead, WB Lead, Whole Blood [id number] 918.2948 ([facility]) NOTES See Note None Note: Patient Street Address[facility] [address]Patient [place]: [address]R[place]q Reviewed by Cat Gutierrez RPA on 08/14; All test results are final unless otherwise noted. ncPN REF [facility] Ordered by Cat Gutierrez RPA on 08/09/2020 Collected: 08/09/2020 Reported: 08/13/2020 15:26 T pallidum Ab Ser Ql Aggl See Note (Nonreactive) None Note: [id number] onreactiveResponsible Observer: TP-PA Treponema pallidum Ab (TP-PA) [id number] 908.0286 ([facility]) HIV1 RNA SerPl Ql ТАТЬЯНА+probe See Note None Note: TNPNo Reportable ResultLTNPNo Repo rtable ResultLLEP.LIVENTNPResponsible Observer: HIV 1 RNA, QL T HIV 1 RNA, QL TMA [id number] 908.0254 ([facility]) HBV surface Ag SerPl Ql IA See Note (NON-REACTIVE) None Note: [id number] 5NON-REACTIVEResponsible Observer: HBSAG Hepatitis B Surface Antigen 28800327 910.2004 ([facility]) RUBV IgG SerPl IA-aCnc 1.76 None Note: Index Interpretatio n ----- <0.90 Not consistent with immunity 0.90-0.99 Equivocal > or = 1.00 Consistent with immunityThe presence of rubella IgG antibody suggestsimmunization or past or current infection withrubella virus.THIS TEST WAS PERFORMED AT:[facility] [address]WPYRIM MERATI,MDResponsible Observer: Rubella IgG Ab Rubella IgG Ab [id number] 911.2840 ([facility]) HIV1 Ab SerPlBld Ql IA.rapid See Note None Note: TNPNo Reportable ResultLTNPNo Repo rtable ResultLLEP.LIVENTNPResponsible Observer: HIV 1 AB HIV 1 AB [id number] 908.0250 ([facility]) HBsAg Confirmation See Note None Note: TNPNo Reportable ResultLTNPNo Repo rtable ResultLLEP.LIVENTNPResponsible Observer: HBsAg Confirm HBsAg Confirmation [id number] 910.2006 ([facility]) HIV (1&2) Screen, 4th Gen [...] for this purpose.For additional information please refer tohttp://[employer]/faq/ISQ185(This link is being provided for informational/educational purposes only.)The performance of this assay has not been clinicallyvalidated in patients less than 2 years old.THIS TEST WAS PERFORMED AT:[facility] [address]JTQDJPCLAUDY ONEILLesponsible Observer: HIV ABS HIV (1&2) Screen, 4th Gen [id number] 908.0228 ([facility]) Reviewed by Cat Gutierrez RPA on 08/14; All test results are final unless otherwise noted. Reported Physicians [facility] Ordered by Cat Gutierrez RPA on 08/09/2020 Collected: 08/09/2020 Reported: 08/13/2020 15:27 Reported Physicians See Note None Note: Reported Physicians:Ordering: Atte oralia: Rigo Gutierrez To: Maya Barron Reviewed by Cat Gutierrez RPA on 08/14; All test results are final unless otherwise noted. HCV RFX ТАТЬЯНА [facility] Ordered by Cat Gutierrez RPA on 08/09/2020 Collected: 08/09/2020 Reported: 08/10/2020 17:47 HCV Ab Ser Ql See Note (NON-REACTIVE) None Note: [id number] 7NON-REACTIVEResponsible Observer: HEP C ANTIBODY Hepatitis C Antibody [id number] 914.8305 ([facility]) HCV RNA Qualitative (ТАТЬЯНА) 0.54 (<1.00) None Note: HCV antibody was non-reactive. The re is no laboratoryevidence of HCV infection.In most cases, no further action is required. However,if recent HCV exposure is suspected, a test for HCV RNA(test code 64409) is suggested.For additional information please refer tohttp://education.[employer]/faq/XBL71z0(This link is being provided for informational/educational purposes only.)THIS TEST WAS PERFORMED AT:[facility] [address]OSEAS MEANSMDResponsible Observer: SIG TO C/O SIGNAL TO CUTOFF [id number] 314.3043 ([facility]) NOTES See Note None Note: Patient Street Address: [facility] [address]Patient City: [place] [facility] Zip Code: [address]x[address] Reviewed by Cat Gutierrez RPA on 08/12; All test results are final unless otherwise noted. Reported Physicians [facility] Ordered by Cat Gutierrez RPA on 08/09/2020 Collected: 08/09/2020 Reported: 08/10/2020 17:47 Reported Physicians See Note None Note: Reported Physicians:Ordering: Atte nding: Brenda, GaudencioanaCopy To: Maya Barron Reviewed by Cat Gutierrez RPA on 08/12; All test results are final unless otherwise noted. Type and Screen [facility] Ordered by Cat Gutierrez RPA [...] are final unless otherwise noted. Reported Physicians [facility] Ordered by Cat Gutierrez RPA on 08/09/2020 Collected: 08/09/2020 Reported: 08/09/2020 12:39 Reported Physicians See Note None Note: Reported Physicians:Ordering: Cat ConwayAttending: Brenda, DyanaCopy To: Maya Barron Reviewed by Cat Gutierrez RPA on 08/10; All test results are final unless otherwise noted. Varicella-Zoster IgG Antibody [facility] Ordered by Cat Gutierrez RPA on 08/09/2020 Collected: 08/09/2020 Reported: 08/10/2020 17:47 VZV IgG Ser IA-[facility] 242.10 None Note: Index Interpr etation --------- [...] Antibody Immunity Screen, ACIF.THIS TEST WAS PERFORMED AT:[facility] [address]VSUUJX ME RATI,MDResponsible Observer: VARICELLA IGG Varicella-Zoster IgG Antibody [id number] 034.1056 ([employer]) NOTES See Note None Note: Patient Street Address: [address] [place] [address]Patient City: [place] [facility] Zip Code: [address]Ztksphj Reviewed by Cat Gutierrez RPA on 08/12; All test results are final unless otherwise noted. BHCG, QUANTITATIVE [facility] Ordered by Cat Gutierrez RPA on 08/08/2020 Collected: 08/08/2020 Reported: 08/08/2020 11:53 B-HCG SerP-[facility] 19716 MilliInternationalUnitsPerMilliLiter_[Arbitrary_Con (0-10) H (High) Note: @Instrument will [...] are final unless otherwise noted. Reported Physicians [facility] Ordered by Cat Gutierrez RPA on 08/08/2020 Collected: 08/08/2020 Reported: 08/08/2020 11:54 Reported Physicians See Note None Note: Reported Physicians:Ordering: Attchandler valentineing: Rigo Gutierrez To: Maya Barron Reviewed by Cat Gutierrez RPA on 08/08; All test results are final unless otherwise noted. Type and Screen [facility] Ordered by Cat Gutierrez RPA [...] are final unless otherwise noted. Reported Physicians [facility] Ordered by Cat Gutierrez RPA on 08/01/2020 Collected: 08/01/2020 Reported: 08/01/2020 06:03 Reported Physicians See Note None Note: Reported Physicians:Ordering: Aj Ferreiraending: Jos Rivas To: Maya Barron Reviewed by Cat Gutierrez RPA on 08/01; All test results are final unless otherwise noted. BHCG, QUANTITATIVE [facility] Ordered by Cat Gutierrez RPA on 08/01/2020 Collected: 08/01/2020 Reported: 08/01/2020 02:26 B-HCG SerPl-aCnc 00051 MilliInternationalUnitsPerMilliLiter_[Arbitrary_Con (0-10) H (High) Note: @Instrument will [...] are final unless otherwise noted. Reported Physicians [facility] Ordered by Cat Gutierrez RPA on 08/01/2020 Collected: 08/01/2020 Reported: 08/01/2020 02:26 Reported Physicians See Note None Note: Reported Physicians:Ordering: Aj Ferreiraending: Jos Rivas To: Maya Barron Reviewed by Cat Gutierrez [facility] on 08/01; All test results are final unless otherwise noted. CBC W AUTO DIFF [facility] Ordered by Cat Gutierrez RPA [...] Auto See Note (0-2) N (Normal) Note: 0.10.1W23062345295.1Responsible Ob server administrator: IG% IG% 100.1375 (B) Hct VFr Bld [...] test results are final unless otherwise noted. [facility] Ordered by Cat Gutierrez RPA [...] are final unless otherwise noted. Reported Physicians [facility] Ordered by Cat Gutierrez [facility] on 08/01/2020 Collected: 08/01/2020 Reported: 08/01/2020 02:26 Reported Physicians See Note None Note: Reported Physicians:Ordering: Aj Ferreiraending: Jos Rivas To: Maya Barron Reviewed by Cat Gutierrez [facility] on 08/01; All test results are final unless otherwise noted. ADD ON MICROSCOPIC [facility] Ordered by Cat Gutierrez RPA on 08/01/2020 Collected: 08/01/2020 Reported: 08/01/2020 01:01 ADD ON MICROSCOPIC See Note (0-5) None Note: NOTES OTHER/NOT INTERPRETED Bacteria UrnS Ql Micro MODERATE AMOUNT Bacteria UrnS Ql Micro MODERATE AMOUNT Bacteria UrnS Ql Micro L Bacteria UrnS Ql Micro Bacteria UrnS Ql Micro Bacteria UrnS Ql Micro Bacteria UrnS Ql Micro [id number] Bacteria UrnS Ql Micro Bacteria UrnS Ql [...] are final unless otherwise noted. Reported Physicians [facility] Ordered by Cat Gutierrez RPA on 08/01/2020 Collected: 08/01/2020 Reported: 08/01/2020 01:01 Reported Physicians See Note None Note: Reported Physicians:Ordering: Aj Ferreiraending: Jos Rivas To: Maya Barron Reviewed by Cat Gutierrez RPA on 08/01; All test results are final unless otherwise noted. UA W/ CULTURE IF ABNORMAL [facility] Ordered by Cat Gutierrez RPA on 08/01/2020 Collected: 08/01/2020 Reported: 08/01/2020 01:01 Urobilinogen Ur Ql See Note (0.2-1 EU/dl) None Note: 0.2 EU/dl0.2 EU/igO77109441891.2 E U/dlResponsible Observer: UROBILINOGEN UROBILINOGEN 300.4500 (C) RBC # Ur Strip SMALL (NEGATIVE) None Note: @DO MICRO!!!!Responsible Observer: BLOOD BLOOD 300.4652 (C) Prot Ur Ql Strip See Note (NEGATIVE) None Note: [id number] EResponsible Observer: PROTEIN PROTEIN 300.3750 (C) Ketones Ur Ql Strip See Note (NEGATIVE) None Note: 15 mg/dL15 mg/[id number] mg/d LResponsible Observer: KETONE KETONE 300.3900 (C) Bilirub Ur Ql Strip.auto See Note (NEGATIVE) None Note: [id number] EResponsible Observer: BILIRUBIN BILIRUBIN 300.4550 (C) Glucose Ur Strip.auto-mCnc NEGATIVE (NEGATIVE) None Note: Responsible Observer: GLUCOSE GLUC OSE 300.3850 (C) Appearance Ur See Note (CLEAR) None Note: CLEARCLEARLCLEARResponsible Observ er: APPEARANCE APPEARANCE 300.3400 (A) Color Ur See Note None Note: YELLOWYELLOWLYELLOWResponsible Obs erver: COLOR COLOR 300.3330 (A) Leukocyte esterase Ur Ql Strip See Note (NEGATIVE) None Note: [id number]@DO MICR O!!!!A Culture has been added to this specimen per established criteriaResponsible Observer: LEUKOCYTES LEUKOCYTES 300.3576 (C) Nitrite Ur Ql Strip See Note (NEGATIVE) None Note: [id number] EResponsible Observer: NITRITE NITRITE 300.3652 (B) pH [...] are final unless otherwise noted. Urine culture [facility] Ordered by Cat Gutierrez [facility] on 08/01/2020 Collected: 08/01/2020 Reported: 08/02/2020 07:41 Urine culture result See Note None Note: Greater than 100,000 CFU/MLLactoba cilli no senst done NOTES See Note None Note: @08/01/20 0101: Urine culture adde dOpal RFLXG = CULT.ADD. Reviewed by Cat Gutierrez [facility] on 08/02; All test results are final unless otherwise noted. Reported Physicians [facility] Ordered by Cat Gutierrez [facility] on 08/01/2020 Collected: 08/01/2020 Reported: 08/02/2020 07:41 Reported Physicians See Note None Note: Reported Physicians:Ordering: Cristino FerreiraAttending: Jos Rivas To: Maya Barron Reviewed by Cat Gutierrez [facility] on 08/02; All test results are final unless otherwise noted. BHCG, QUANTITATIVE [facility] Ordered by Cat Gutierrez [facility] on 07/31/2020 Collected: 07/31/2020 Reported: 07/31/2020 16:53 B-HCG SerPl-aCnc 31082 MilliInternationalUnitsPerMilliLiter_[Arbitrary_Con (0-10) H (High) Note: @Instrument will [...] are final unless otherwise noted. Reported Physicians [facility] Ordered by Cat Gutierrez RPA on 07/31/2020 Collected: 07/31/2020 Reported: 07/31/2020 16:53 Reported Physicians See Note None Note: Reported Physicians:Ordering: Atte oralia: Cat Gutierrez Reviewed by Cat Gutierrez RPA on 08/01; All test results are final unless otherwise noted. UA W/ CULTURE IF ABNORMAL [facility] Ordered by Cat Gutierrez RPA on 07/27/2020 Collected: 07/27/2020 Reported: 07/27/2020 21:36 Urobilinogen Ur Ql See Note (0.2-1 EU/dl) None Note: 0.2 EU/dl0.2 EU/rpY48600530290.2 E U/dlResponsible Observer: UROBILINOGEN UROBILINOGEN 300.4500 (C) RBC # Ur Strip NEGATIVE (NEGATIVE) None Note: Responsible Observer: BLOOD BLOOD 300.4652 (C) Prot Ur Ql Strip See Note (NEGATIVE) None Note: [id number] EResponsible Observer: PROTEIN PROTEIN 300.3750 (C) Ketones Ur Ql Strip See Note (NEGATIVE) None Note: [id number] EResponsible Observer: KETONE KETONE 300.3900 (C) Bilirub Ur Ql Strip.auto See Note (NEGATIVE) None Note: [id number] EResponsible Observer: BILIRUBIN BILIRUBIN 300.4550 (C) Glucose Ur Strip.auto-mCnc NEGATIVE (NEGATIVE) None Note: Responsible Observer: GLUCOSE GLUC OSE 300.3850 (C) Appearance Ur See Note (CLEAR) None Note: CLEARCLEARLCLEARResponsible Observ er: APPEARANCE APPEARANCE 300.3400 (A) Color Ur See Note None Note: YELLOWYELLOWLYELLOWResponsible Obs erver: COLOR COLOR 300.3330 (A) Leukocyte esterase Ur Ql Strip See Note (NEGATIVE) None Note: [id number]@DO MICR O!!!!A Culture has been added to this specimen per established criteriaResponsible Observer: LEUKOCYTES LEUKOCYTES 300.3576 (C) Nitrite Ur Ql Strip See Note (NEGATIVE) None Note: [id number] EResponsible Observer: NITRITE NITRITE 300.3652 (B) pH [...] are final unless otherwise noted. Urine culture [facility] Ordered by Cat Gutierrez RPA on 07/27/2020 Collected: 07/27/2020 Reported: 07/29/2020 07:36 Urine culture result 50,000 CFU/ML Lactobacilli no senst done None NOTES See Note None Note: @07/27/202136: Urine culture flavia d. RFLXG = CULT.ADD. Reviewed by Cat Gutierrez RPA on 07/31; All test results are final unless otherwise noted. Reported Physicians [facility] Ordered by Cat Gutierrez RPA on 07/27/2020 Collected: 07/27/2020 Reported: 07/29/2020 07:37 Reported Physicians See Note None Note: Reported Physicians:Ordering: Daquan BustamanteAttending: Daquan GoodCopyifan To: Maya Barron Reviewed by Cat Gutierrez RPA on 07/31; All test results are final unless otherwise noted. ADD ON MICROSCOPIC [facility] Ordered by Cat Gutierrez RPA on 07/27/2020 Collected: 07/27/2020 Reported: 07/27/2020 21:36 ADD ON MICROSCOPIC See Note (0-5) None Note: NOTES OTHER/NOT INTERPRETED Bacteria UrnS Ql Micro SMALL AMOUNT Bacteria UrnS Ql Micro SMALL AMOUNT Bacteria UrnS Ql Micro L Bacteria UrnS Ql Micro Bacteria UrnS Ql Micro Bacteria UrnS Ql Micro Bacteria UrnS Ql Micro [id number] Bacteria UrnS Ql Micro Bacteria UrnS Ql Micro SMALL AMOUNT Cells UrnS Micro MODERATE Cells UrnS Micro MODERATE Cells UrnS Micro MODERATE Cells UrnS Micro L Cells UrnS Micro Cells UrnS Micro Cells UrnS Micro Cells UrnS Micro Cells UrnS Micro WBC # Ur Manual OCCASIONAL Reason for ordering culture: Abnormal findings UA@07/27/20 2118: UA W/ MICRO added. RFLXG = UMIC CIF.Method of Collection:: VoidedResponsible Observer: WBC WBC 300.5005 (A) Reviewed by Cat Gutierrez RPA on 07/28; All test results are final unless otherwise noted. Reported Physicians [facility] Ordered by Cat Gutierrez RPA on 07/27/2020 Collected: 07/27/2020 Reported: 07/27/2020 21:37 Reported Physicians See Note None Note: Reported Physicians:Ordering: Daquan BustamanteAttending: Daquan GoodCopyifan To: Maya Barron Reviewed by Cat Gutierrez RPA on 07/28; All test results are final unless otherwise noted. CMP [facility] Ordered by Cat Gutierrez RPA [...] reatinine 400.1600 (G) Reviewed by Cat Gutierrez [facility] on 07/28; All test results are final unless otherwise noted. Reported Physicians [facility] Ordered by Cat Gutierrez [facility] on 07/27/2020 Collected: 07/27/2020 Reported: 07/27/2020 20:37 Reported Physicians See Note None Note: Reported Physicians:Ordering: Daquan BustamanteAttending: Ariella Good To: Maya Barron Reviewed by Cat Gutierrez [facility] on 07/28; All test results are final unless otherwise noted. Type and Screen [facility] Ordered by Cat Gutierrez [facility] on 07/27/2020 Collected: 07/27/2020 Reported: 07/27/2020 20:48 [...] are final unless otherwise noted. Reported Physicians [facility] Ordered by Cat Gutierrez RPA on 07/27/2020 Collected: 07/27/2020 Reported: 07/27/2020 20:48 Reported Physicians See Note None Note: Reported Physicians:Ordering: Daquan BustamanteAttending: Daquan GoodCopy To: Maya Barron Reviewed by Cat Gutierrez RPA on 07/28; All test results are final unless otherwise noted. CBC W AUTO DIFF [facility] Ordered by Cat Gutierrez RPA [...] Auto See Note (0-2) N (Normal) Note: [id number] Ob server administrator: IG% IG% 100.1375 (B) Hct VFr Bld [...] are final unless otherwise noted. Reported Physicians [facility] Ordered by Cat Gutierrez RPA on 07/27/2020 Collected: 07/27/2020 Reported: 07/27/2020 20:11 Reported Physicians See Note None Note: Reported Physicians:Ordering: Daquan BustamanteAttending: Daquan GoodCopyifan To: Maya Barron Reviewed by Cat Gutierrez RPA on 07/28; All test results are final unless otherwise noted. BHCG, QUANTITATIVE [facility] Ordered by Cat Gutierrez RPA [...] are final unless otherwise noted. Reported Physicians [facility] Ordered by Cat Gutierrez RPA on 07/27/2020 Collected: 07/27/2020 Reported: 07/27/2020 22:08 Reported Physicians See Note None Note: Reported Physicians:Ordering: Daquan BustamanteAttending: Ariella Good To: Maya Barron Reviewed by Cat Gutierrez RPA on 07/28; All test results are final unless otherwise noted. BHCG, QUANTITATIVE [facility] Ordered by Maya Barron MD on 07/26/2020 Collected: 07/26/2020 Reported: 07/26/2020 16:48 B-HCG [facility] 4155 MilliInternationalUnitsPerMilliLiter_[Arbitrary_Con (0-10) H (High) Note: [...] are final unless otherwise noted. Reported Physicians [facility] Ordered by Maya Barron MD on 07/26/2020 Collected: 07/26/2020 Reported: 07/26/2020 16:48 Reported Physicians See Note None Note: Reported Physicians:Ordering: Maya AlvarengaAttending: Maya Barron Reviewed by Maya Barron MD on 07/27; All test results are final unless otherwise noted. Sweta Raquel SARS/FLU [facility] Ordered by Bandar Cleveland PA-C on 07/25/2020 Collected: 07/25/2020 Reported: 07/25/2020 18:47 Sweta Raquel SARS/FLU See Note None Note: Sweta Raquel is a rapid, automated q ualitative anddifferentiation of Influenza type A,B and MPBA-WDS-5JSMH-RT-PCR testNORMAL VALUE IS "NOT DETECTED".Limitations of the sweta raquel Influenza A/B & LXIC-GNY-1ryyct method.Modifications to manufacturers recommendation and proceduresmay alter performance of the test.Negative results do not preclude Influenza A,B or SARS- WRW6zsextbvfxz and should not be used as the [...] out diseases caused by other bacterialor viral pathogens.[id number]-IkA-1 RNA Resp Ql ТАТЬЯНА+probeLNNOSNo O rganisms [id number] Organisms Detected Reviewed by Bandar Cleveland PA-C on 1; All test results are final unless otherwise noted. Reported Physicians [facility] Ordered by Bandar Cleveland PA-C on 07/25/2020 Collected: 07/25/2020 Reported: 07/25/2020 18:47 Reported Physicians See Note None Note: Reported Physicians:Ordering: Janice Wilsonending: Kami Cleveland To: Health, Public Reviewed by Bandar Cleveland PA-C on 1; All test results are final unless otherwise noted. Extended hours FLU/COV2 NAAT [facility] Ordered by Bandar Cleveland PA-C on 07/25/2020 Collected: 07/25/2020 Reported: 07/25/2020 18:47 Extended hours FLU/COV2 NAAT See Note None Note: TNPNo Reportable ResultLTNPNo Repo rtable PsrezlS6HDC Reviewed by Bandar Cleveland PA-C on 1; All test results are final unless otherwise noted. Reported Physicians [facility] Ordered by Bandar Cleveland PA-C on 07/25/2020 Collected: 07/25/2020 Reported: 07/25/2020 18:47 Reported Physicians See Note None Note: Reported Physicians:Ordering: Janice Wilsonending: Kami Cleveland To: Health, Public Reviewed by Bandar Cleveland PA-C on 1; All test results are final unless otherwise noted. CBC W AUTO DIFF [facility] Ordered by Maya Barron MD [...] Auto See Note (0-2) N (Normal) Note: [id number] Ob server administrator: IG% IG% 100.1375 (B) Hct VFr Bld [...] test results are final unless otherwise noted. [facility] Ordered by Maya [...] are final unless otherwise noted. Reported Physicians [facility] Ordered by Maya Barron MD on 07/22/2020 Collected: 07/22/2020 Reported: 07/22/2020 02:00 Reported Physicians See Note None Note: Reported Physicians:Ordering: Hong LandaverdeAttending: Alon Douglas To: Maya Barron Reviewed by Maya Barron MD on 07/24; All test results are final unless otherwise noted. Sweta Raquel SARS/FLU [facility] Ordered by Maya Barron MD on 07/22/2020 Collected: 07/22/2020 Reported: 07/22/2020 01:29 Sweta Raquel SARS/FLU See Note None Note: Sweta Raquel is a rapid, automated q ualitative anddifferentiation of Influenza type A,B and RMZO-VPR-5WWEK-RT-PCR testNORMAL VALUE IS "NOT DETECTED".Limitations of the sweta raquel Influenza A/B & EHUX-KTB-4uqfrp method.Modifications to manufacturers recommendation and proceduresmay alter performance of the test.Negative results do not preclude Influenza A,B or SARS- KFW9xxjdpqnqho and should not be used as the [...] out diseases caused by other bacterialor viral pathogens.[id number]-RiJ-1 RNA Resp Ql ТАТЬЯНА+probeLNNOSNo O rganisms [id number] Organisms Detected Reviewed by Maya Barron MD on 07/24; All test results are final unless otherwise noted. Reported Physicians [facility] Ordered by Maya Barron MD on 07/22/2020 Collected: 07/22/2020 Reported: 07/22/2020 01:29 Reported Physicians See Note None Note: Reported Physicians:Ordering: Dominic Landaverdeending: Alon Douglas To: Maya Barron Reviewed by Maya Barron MD on 07/24; All test results are final unless otherwise noted. UA W/ CULTURE IF ABNORMAL [facility] Ordered by Maya Barron MD on 07/22/2020 Collected: 07/22/2020 Reported: 07/22/2020 01:10 Urobilinogen Ur Ql See Note (0.2-1 EU/dl) None Note: 0.2 EU/dl0.2 EU/[id number] E U/dlResponsible Observer: UROBILINOGEN UROBILINOGEN 300.4500 (C) RBC # Ur Strip NEGATIVE (NEGATIVE) None Note: Responsible Observer: BLOOD BLOOD 300.4652 (C) Prot Ur Ql Strip See Note (NEGATIVE) None Note: [id number] EResponsible Observer: PROTEIN PROTEIN 300.3750 (C) Ketones Ur Ql Strip See Note (NEGATIVE) None Note: [id number] EResponsible Observer: KETONE KETONE 300.3900 (C) Bilirub Ur Ql Strip.auto See Note (NEGATIVE) None Note: [id number] EResponsible Observer: BILIRUBIN BILIRUBIN 300.4550 (C) Glucose Ur Strip.auto-mCnc NEGATIVE (NEGATIVE) None Note: Responsible Observer: GLUCOSE GLUC OSE 300.3850 (C) Appearance Ur See Note (CLEAR) None Note: CLEARCLEARLCLEARResponsible Observ er: APPEARANCE APPEARANCE 300.3400 (A) Color Ur See Note None Note: YELLOWYELLOWLYELLOWResponsible Obs erver: COLOR COLOR 300.3330 (A) Leukocyte esterase Ur Ql Strip See Note (NEGATIVE) None Note: [id number] EResponsible Observer: LEUKOCYTES LEUKOCYTES 300.3576 (C) Nitrite Ur Ql Strip See Note (NEGATIVE) None Note: [id number] EResponsible Observer: NITRITE NITRITE 300.3652 (B) pH [...] are final unless otherwise noted. Reported Physicians [facility] Ordered by Maya Barron MD on 07/22/2020 Collected: 07/22/2020 Reported: 07/22/2020 01:11 Reported Physicians See Note None Note: Reported Physicians:Ordering: Hong LandaverdeAttending: Alon Douglas To: Maya Barron Reviewed by Maya Barron MD on 07/24; All test results are final unless otherwise noted. Extended hours FLU/COV2 NAAT [facility] Ordered by Maya Barron MD on 07/22/2020 Collected: 07/22/2020 Reported: 07/22/2020 01:29 Extended hours FLU/COV2 NAAT See Note None Note: TNPNo Reportable ResultLTNPNo Repo rtable OqsfdbY4DGM Reviewed by Maya Barron MD on 07/24; All test results are final unless otherwise noted. Reported Physicians [facility] Ordered by Maya Barron MD on 07/22/2020 Collected: 07/22/2020 Reported: 07/22/2020 01:29 Reported Physicians See Note None Note: Reported Physicians:Ordering: Hong LandaverdeAttending: Alon Douglas To: Maya Barron Reviewed by Maya Barron MD on 07/24; All test results are final unless otherwise noted. Urine culture [facility] Ordered by Maya Barron MD on 07/19/2020 Collected: 07/19/2020 Reported: 07/21/2020 07:48 Bacteria Ur Cult See Note None Note: NGNo growth.L1NG Reviewed by Maya Barron MD on 07/21; All test results are final unless otherwise noted. Reported Physicians [facility] Ordered by Maya Barron MD on 07/19/2020 Collected: 07/19/2020 Reported: 07/21/2020 07:49 Reported Physicians See Note None Note: Reported Physicians:Ordering: Maya AlvarengaAttending: Maya Barron Reviewed by Maya Barron MD on 07/21; All test results are final unless otherwise noted. BHCG, QUANTITATIVE [facility] Ordered by Maya Barron MD [...] are final unless otherwise noted. Reported Physicians [facility] Ordered by Maya Barron MD on 07/17/2020 Collected: 07/17/2020 Reported: 07/17/2020 12:40 Reported Physicians See Note None Note: Reported Physicians:Ordering: Maya AlvarengaAttending: Maya Barron Reviewed by Maya Barron MD on 07/17; All test results are final unless otherwise noted. [employer] COVID-19 SCHOOL [facility] Ordered by Maya Barron MD on 05/31/2020 Collected: 05/31/2020 Reported: 05/31/2020 07:08 [employer] COVID-19 SCHOOL See Note None Note: CUEVSA COVID-19 IS AN ISOTHER MAL ТАТЬЯНА TECHNOLOGYNORMAL VALUE IS "SARS-COV-2 COVID 19 NOT DETECTED"False negative results may occur if a specimen is improperlycollected,transported or handled.False negative results may also occur if amplicationinhibitors are present in the specimen or if inadequatelevels of viruses are present in the specimen.As with any molecular test, if the virus mutates in [facility] [place], Covid-19 may not be detected or may bedetected less predictably.ID NOW COVID-19 is intended for testing a swab directlywithout elution in viral transport media as dilution willresult in decreased detection of low positive samples thatare near the limit of detection of the test.SWAB SAMPLES ELUTED IN VTM ARE NOT APPROPRIATE FOR USE INTHIS TEST.NOSNo Organisms [id number] Organisms Detected Reviewed by Maya Barron MD on 05/31; All test results are final unless otherwise noted. Reported Physicians [facility] Ordered by Maya Barron MD on 05/31/2020 Collected: 05/31/2020 Reported: 05/31/2020 07:08 Reported Physicians See Note None Note: Reported Physicians:Ordering: Johnny HernándezAttending: Suzanne Cazares To: Maya Barron Reviewed by Maya Barron MD on 05/31; All test results are final unless otherwise noted. BHCG, QUANTITATIVE [facility] Ordered by Maya Barron MD on 05/26/2020 Collected: 05/26/2020 Reported: 05/26/2020 14:49 [facility] [address] MilliInternationalUnitsPerMilliLiter_[Arbitrary_Con (0-10) H (High) Note: @Instrument will [...] are final unless otherwise noted. Reported Physicians [facility] Ordered by Maya Barron MD on 05/26/2020 Collected: 05/26/2020 Reported: 05/26/2020 14:50 Reported Physicians See Note None Note: Reported Physicians:Ordering: Maya AlvarengaAttending: Maya Barron Reviewed by Maya Barron MD on 05/26; All test results are final unless otherwise noted. URINALYSIS [facility] Ordered by Maya Barron MD on 05/23/2020 Collected: 05/23/2020 Reported: 05/23/2020 17:19 Urobilinogen Ur Ql See Note (0.2-1 EU/dl) None Note: 0.2 EU/dl0.2 EU/[id number] E U/dlResponsible Observer: UROBILINOGEN UROBILINOGEN 300.4500 (C) RBC # Ur Strip NEGATIVE (NEGATIVE) None Note: Responsible Observer: BLOOD BLOOD 300.4650 (C) Prot Ur Ql Strip See Note (NEGATIVE) None Note: [id number] EResponsible Observer: PROTEIN PROTEIN 300.3750 (C) Ketones Ur Ql Strip See Note (NEGATIVE) None Note: [id number] EResponsible Observer: KETONE KETONE 300.3900 (C) Bilirub Ur Ql Strip.auto See Note (NEGATIVE) None Note: [id number] EResponsible Observer: BILIRUBIN BILIRUBIN 300.4550 (C) Glucose Ur Strip.auto-mCnc NEGATIVE (NEGATIVE) None Note: Responsible Observer: GLUCOSE GLUC OSE 300.3850 (C) Appearance Ur See Note (CLEAR) None Note: CLEARCLEARLCLEARResponsible Observ er: APPEARANCE APPEARANCE 300.3400 (A) Color Ur See Note None Note: YELLOWYELLOWLYELLOWResponsible Obs erver: COLOR COLOR 300.3300 (A) Leukocyte esterase Ur Ql Strip See Note (NEGATIVE) None Note: [id number] EResponsible Observer: LEUKOCYTES LEUKOCYTES 300.3575 (C) Nitrite Ur Ql Strip See Note (NEGATIVE) None Note: [id number] EResponsible Observer: NITRITE NITRITE 300.3650 (B) pH [...] are final unless otherwise noted. Urine culture [facility] Ordered by Maya Barron MD on 05/23/2020 Collected: 05/23/2020 Reported: 05/24/2020 09:24 Bacteria Ur Cult See Note None Note: NGNo growth.L1NG Reviewed by Maya Barron MD on 05/29; All test results are final unless otherwise noted. MEDMATCH [facility] Ordered by Maya Barron MD on 05/23/2020 Collected: 05/23/2020 Reported: 05/26/2020 17:09 MEDMATCH 1.000 (> or = 1.003) None Note: Responsible Observer: MEDMATCH MED MATCH 910.59813 ([employer]) Reviewed by Maya Barron MD on 05/29; All test results are final unless otherwise noted. Reported Physicians [facility] Ordered by Maya Barron MD on 05/23/2020 Collected: 05/23/2020 Reported: 05/26/2020 17:09 Reported Physicians See Note None Note: Reported Physicians:Ordering: Maya AlvarengaAttending: Maya Barron Reviewed by Maya Barron MD on 05/29; All test results are final unless otherwise noted. Varicella-Zoster IgG Antibody [facility] Ordered by Maya Barron MD [...] Antibody Immunity Screen, ACIF.THIS TEST WAS PERFORMED AT:[facility] [address]JUAFBW ME RATI,MDResponsible Observer: VARICELLA IGG Varicella-Zoster IgG Antibody [id number] 903.2697 ([employer]) NOTES See Note None Note: Patient Street Address: [facility] [address]: [address] Reviewed by Maya Barron MD on 05/26; All test results are final unless otherwise noted. Reported Physicians [facility] Ordered by Maya Barron MD on 05/23/2020 Collected: 05/23/2020 Reported: 05/25/2020 17:11 Reported Physicians See Note None Note: Reported Physicians:Ordering: Maya AlvarengaAttending: Maya Barron Reviewed by Maya Barron MD on 05/26; All test results are final unless otherwise noted. CBC [facility] Ordered by Maya Barron MD [...] Auto See Note (0-2) N (Normal) Note: [id number] Ob server administrator: IG% IG% 100.1375 (B) Hct VFr Bld [...] results are final unless otherwise noted. TSH [facility] Ordered by Maya Barron MD on 05/23/2020 Collected: 05/23/2020 Reported: 05/23/2020 18:38 TSH SerPl DL<=0.005 mIU/L-aCnc 1.87 MicroInternationalUnitsPerMilliLiter_[Arbitrary_Con (0.35-5. 50) N (Normal) Note: Responsible Observer: TSH TSH 600 .7055 (D) Reviewed by Maya Barron MD on 05/29; All test results are final unless otherwise noted. Lead (Venous) Wh.Bld [facility] Ordered by Maya Barron MD on 05/23/2020 Collected: 05/23/2020 Reported: 05/25/2020 17:11 Lead Bld-sCnc <1 (<5) None Note: See Note 1Note 1This test was [facility] and its analytical performancecharacteristics have been determined by [facility]. It has not been cleared or approved by theA. This assay has been validated pursuant to the CLIAregulations and is used for clinical purposes.THIS TEST WAS PERFORMED AT:[facility] [address]BBJFVDCLAUDY ONEILLesponsible Observer: Lead, WB Lead, Whole Blood [id number] 911.2190 ([facility]) NOTES See Note None Note: Patient Street Address: [facility] [address]Patient [place]: [place]: [address] Reviewed by Maya Barron MD on 05/29; All test results are final unless otherwise noted. ncPN REF [facility] Ordered by Maya Barron MD on 05/23/2020 Collected: 05/23/2020 Reported: 05/27/2020 20:54 T pallidum Ab Ser Ql Aggl See Note (Nonreactive) None Note: [id number] onreactiveResponsible Observer: TP-PA Treponema pallidum Ab (TP-PA) [id number] 908.0286 ([facility]) HIV1 RNA SerPl Ql ТАТЬЯНА+probe See Note None Note: TNPNo Reportable ResultLTNPNo Repo rtable ResultLLEP.LIVENTNPResponsible Observer: HIV 1 RNA, QL T HIV 1 RNA, QL TMA [id number] 908.0254 ([facility]) HBV surface Ag SerPl Ql IA See Note (NON-REACTIVE) None Note: [id number] 0NON-REACTIVEResponsible Observer: HBSAG Hepatitis B Surface Antigen [id number] 910.2004 ([facility]) RUBV IgG SerPl IA-aCnc 1.80 None Note: Index Interpretatio n ----- <0.90 Not consistent with Immunity 0.90-0.99 Equivocal > or = 1.00 Consistent with ImmunityThe presence of rubella IgG antibody suggestsimmunization or past or current infection withrubella virus.THIS TEST WAS PERFORMED AT:[facility] [address]BUGJVJ MERATI,MDResponsible Observer: Rubella IgG Ab Rubella IgG Ab [id number] 911.2840 ([facility]) HIV1 Ab SerPlBld Ql IA.rapid See Note None Note: TNPNo Reportable ResultLTNPNo Repo rtable ResultLLEP.LIVENTNPResponsible Observer: HIV 1 AB HIV 1 AB [id number] 908.0250 ([facility]) HBsAg Confirmation See Note None Note: TNPNo Reportable ResultLTNPNo Repo rtable ResultLLEP.LIVENTNPResponsible Observer: HBsAg Confirm HBsAg Confirmation [id number] 910.2006 ([facility]) HIV (1&2) Screen, 4th Gen [...] for this purpose.For additional information please refer tohttp://[employer]/faq/IZU379(This link is being provided for informational/educational purposes only.)The performance of this assay has not been clinicallyvalidated in patients less than 2 years old.Responsible Observer: HIV ABS HIV (1&2) Screen, 4th Gen [id number] 908.0228 ([facility]) Reviewed by Maya Barron MD on 05/29; All test results are final unless otherwise noted. Reported Physicians [facility] Ordered by Maya Barron MD on 05/23/2020 Collected: 05/23/2020 Reported: 05/27/2020 20:54 Reported Physicians See Note None Note: Reported Physicians:Ordering: Maya AlvarengaAttending: Maya Barron Reviewed by Maya Barron MD on 05/29; All test results are final unless otherwise noted. HCV RFX ТАТЬЯНА [facility] Ordered by Maya Barron MD on 05/23/2020 Collected: 05/23/2020 Reported: 05/25/2020 17:11 HCV Ab Ser Ql See Note (NON-REACTIVE) None Note: [id number] 7NON-REACTIVEResponsible Observer: HEP C ANTIBODY Hepatitis C Antibody [id number] 914.8305 ([facility]) HCV RNA Qualitative (ТАТЬЯНА) 0.59 (<1.00) None Note: HCV antibody was non-reactive. The re is no laboratoryevidence of HCV infection.In most cases, no further action is required. However,if recent HCV exposure is suspected, a test for HCV RNA(test code 66279) is suggested.For additional information please refer tohttp://[employer]/faq/JAL97b3(This link is being provided for informational/educational purposes only.)THIS TEST WAS PERFORMED AT:[facility] [address]OSEAS MEANSMDResponsible Observer: SIG TO C/O SIGNAL TO CUTOFF [id number] 259.6529 ([employer]) NOTES See Note None Note: Patient Street Address: [address] City: [facility] State: [facility] Zip Code: [address] Reviewed by Maya Barron MD on 05/26; All test results are final unless otherwise noted. Reported Physicians [facility] Ordered by Maya Barron MD on 05/23/2020 Collected: 05/23/2020 Reported: 05/25/2020 17:11 Reported Physicians See Note None Note: Reported Physicians:Ordering: Cara Alvarengaending: Maya Barron Reviewed by Maya Barron MD on 05/26; All test results are final unless otherwise noted. Type and Screen [facility] Ordered by Maya Barron MD [...] are final unless otherwise noted. Reported Physicians [facility] Ordered by Maya Barron MD on 05/23/2020 Collected: 05/23/2020 Reported: 05/23/2020 19:32 Reported Physicians See Note None Note: Reported Physicians:Ordering: Maya AlvarengaAttending: Maya Barron Reviewed by Maya Barron MD on 05/24; All test results are final unless otherwise noted. PROGESTERONE [facility] Ordered by Maya Barron MD [...] are final unless otherwise noted. Reported Physicians [facility] Ordered by Maya Barron MD on 04/27/2020 Collected: 04/27/2020 Reported: 04/27/2020 15:58 Reported Physicians See Note None Note: Reported Physicians:Ordering: Johnny Hernándezending: Cristino CastellanosCopyifan To: Rubén Barron To: Cristino Castellanos Reviewed by Maya Barron MD on 04/30; All test results are final unless otherwise noted. BHCG, QUANTITATIVE [facility] Ordered by Maya Barron MD on 04/27/2020 Collected: 04/27/2020 Reported: 04/27/2020 14:40 B-HCG [facility] 2353 MilliInternationalUnitsPerMilliLiter_[Arbitrary_Con (0-10) H (High) Note: @Instrument [...] are final unless otherwise noted. Reported Physicians [facility] Ordered by Maya Barron MD on 04/27/2020 Collected: 04/27/2020 Reported: 04/27/2020 14:40 Reported Physicians See Note None Note: Reported Physicians:Ordering: Aj Snowending: Cristino CastellanosCopyifan To: Johnny CazaresCopyifan To: Maya Barron Reviewed by Maya Barron MD on 04/30; All test results are final unless otherwise noted. CBC W AUTO DIFF [facility] Ordered by Maya Barron MD [...] Auto See Note (0-2) N (Normal) Note: [id number] Ob server administrator: IG% IG% 100.1375 (B) Hct VFr Bld [...] test results are final unless otherwise noted. [facility] Ordered by Maya Barron MD [...] are final unless otherwise noted. Reported Physicians [facility] Ordered by Maya Barron MD on 04/25/2020 Collected: 04/25/2020 Reported: 04/25/2020 22:11 Reported Physicians See Note None Note: Reported Physicians:Ordering: Aj Ferreiraending: Jos Rivas To: Maya Barron Reviewed by Maya Barron MD on 04/26; All test results are final unless otherwise noted. BHCG, QUANTITATIVE [facility] Ordered by Maya Barron MD on 04/25/2020 Collected: 04/25/2020 Reported: 04/25/2020 22:11 [facility] 1758 MilliInternationalUnitsPerMilliLiter_[Arbitrary_Con (0-10) H (High) Note: @Instrument [...] are final unless otherwise noted. Reported Physicians [facility] Ordered by Maya Barron MD on 04/25/2020 Collected: 04/25/2020 Reported: 04/25/2020 22:11 Reported Physicians See Note None Note: Reported Physicians:Ordering: Aj Ferreiraending: Jos Rivas To: Maya Barron Reviewed by Maya Barron MD on 04/26; All test results are final unless otherwise noted. Urine culture [facility] Ordered by Maya Barron MD on 04/25/2020 Collected: 04/25/2020 Reported: 04/27/2020 04:50 Bacteria Ur Cult See Note None Note: NGNo growth.L1NG NOTES See Note None Note: @ NICOLE DATE was changed from 04/26 to 04/25/20@ by POMCY. Reviewed by Maya Barron MD on 04/30; All test results are final unless otherwise noted. Reported Physicians [facility] Ordered by Maya Barron MD on 04/25/2020 Collected: 04/25/2020 Reported: 04/27/2020 04:51 Reported Physicians See Note None Note: Reported Physicians:Ordering: Aj Ferreiraending: Jos Rivas To: Maya Barron Reviewed by Maya Barron MD on 04/30; All test results are final unless otherwise noted. ADD ON MICROSCOPIC [facility] Ordered by Maya Barron MD on 04/25/2020 Collected: 04/25/2020 Reported: 04/25/2020 21:54 ADD ON MICROSCOPIC See Note (0-5) None Note: NOTES OTHER/NOT INTERPRETED Bacteria UrnS Ql Micro SMALL AMOUNT Bacteria UrnS Ql Micro SMALL AMOUNT Bacteria UrnS Ql Micro L Bacteria UrnS Ql Micro Bacteria UrnS Ql Micro Bacteria UrnS Ql Micro Bacteria UrnS Ql Micro [id number] Bacteria UrnS Ql Micro Bacteria UrnS Ql [...] are final unless otherwise noted. Reported Physicians [facility] Ordered by Maya Barron MD on 04/25/2020 Collected: 04/25/2020 Reported: 04/25/2020 21:54 Reported Physicians See Note None Note: Reported Physicians:Ordering: Cristino FerreiraAttending: Jos Rivas To: Maya Barron Reviewed by Maya Barron MD on 04/26; All test results are final unless otherwise noted. URINALYSIS [facility] Ordered by Maya Barron MD on 04/25/2020 Collected: 04/25/2020 Reported: 04/25/2020 21:54 Urobilinogen Ur Ql See Note (0.2-1 EU/dl) None Note: 0.2 EU/dl0.2 EU/[id number] E U/dlResponsible Observer: UROBILINOGEN UROBILINOGEN 300.4500 (C) RBC # Ur Strip NEGATIVE (NEGATIVE) None Note: Responsible Observer: BLOOD BLOOD 300.4650 (C) Prot Ur Ql Strip See Note (NEGATIVE) None Note: [id number] EResponsible Observer: PROTEIN PROTEIN 300.3750 (C) Ketones Ur Ql Strip See Note (NEGATIVE) None Note: [id number] EResponsible Observer: KETONE KETONE 300.3900 (C) Bilirub Ur Ql Strip.auto See Note (NEGATIVE) None Note: [id number] EResponsible Observer: BILIRUBIN BILIRUBIN 300.4550 (C) Glucose Ur Strip.auto-mCnc NEGATIVE (NEGATIVE) None Note: Responsible Observer: GLUCOSE GLUC OSE 300.3850 (C) Appearance Ur See Note (CLEAR) None Note: CLEARCLEARLCLEARResponsible Observ er: APPEARANCE APPEARANCE 300.3400 (A) Color Ur See Note None Note: YELLOWYELLOWLYELLOWResponsible Obs erver: COLOR COLOR 300.3300 (A) Leukocyte esterase Ur Ql Strip See Note (NEGATIVE) None Note: [id number]@DO MICR O!!!!Responsible Observer: LEUKOCYTES LEUKOCYTES 300.3575 (C) Nitrite Ur Ql Strip See Note (NEGATIVE) None Note: [id number] EResponsible Observer: NITRITE NITRITE 300.3650 (B) pH [...] are final unless otherwise noted. Reported Physicians [facility] Ordered by Maya Barron MD on 04/25/2020 Collected: 04/25/2020 Reported: 04/25/2020 21:54 Reported Physicians See Note None Note: Reported Physicians:Ordering: Aj Ferreiraending: Jos Rivas To: Maya Barron Reviewed by Maya Barron MD on 04/26; All test results are final unless otherwise noted. BHCG, QUANTITATIVE [facility] Ordered by Maya Barron MD [...] are final unless otherwise noted. Reported Physicians [facility] Ordered by Maya Barron MD on 04/18/2020 Collected: 04/18/2020 Reported: 04/18/2020 15:11 Reported Physicians See Note None Note: Reported Physicians:Ordering: Maya AlvarengaAttending: Maya Barron Reviewed by Maya Barron MD on 04/19; All test results are final unless otherwise noted. ADD ON MICROSCOPIC [facility] Ordered by Maya Barron MD on 04/16/2020 Collected: 04/16/2020 Reported: 04/16/2020 23:51 ADD ON MICROSCOPIC See Note (0-5) None Note: NOTES OTHER/NOT INTERPRETED Bacteria UrnS Ql Micro SMALL AMOUNT Bacteria UrnS Ql Micro SMALL AMOUNT Bacteria UrnS Ql Micro L Bacteria UrnS Ql Micro Bacteria UrnS Ql Micro Bacteria UrnS Ql Micro Bacteria UrnS Ql Micro [id number] Bacteria UrnS Ql Micro Bacteria UrnS Ql [...] are final unless otherwise noted. Reported Physicians [facility] Ordered by Maya Barron MD on 04/16/2020 Collected: 04/16/2020 Reported: 04/16/2020 23:52 Reported Physicians See Note None Note: Reported Physicians:Ordering: Jose E JoseodAttending: Damon VinodCopy To: Maya Barron Reviewed by Maya Barron MD on 04/17; All test results are final unless otherwise noted. UA W/ CULTURE IF ABNORMAL [facility] Ordered by Maya Barron MD on 04/16/2020 Collected: 04/16/2020 Reported: 04/16/2020 23:51 Urobilinogen Ur Ql See Note (0.2-1 EU/dl) None Note: 0.2 EU/dl0.2 EU/[id number] E U/dlResponsible Observer: UROBILINOGEN UROBILINOGEN 300.4500 (C) RBC # Ur Strip NEGATIVE (NEGATIVE) None Note: Responsible Observer: BLOOD BLOOD 300.4652 (C) Prot Ur Ql Strip See Note (NEGATIVE) None Note: [id number] EResponsible Observer: PROTEIN PROTEIN 300.3750 (C) Ketones Ur Ql Strip See Note (NEGATIVE) None Note: [id number] ble Observer: KETONE KETONE 300.3900 (C) Bilirub Ur Ql Strip.auto See Note (NEGATIVE) None Note: [id number] EResponsible Observer: BILIRUBIN BILIRUBIN 300.4550 (C) Glucose Ur Strip.auto-mCnc NEGATIVE (NEGATIVE) None Note: Responsible Observer: GLUCOSE GLUC OSE 300.3850 (C) Appearance Ur See Note (CLEAR) None Note: CLEARCLEARLCLEARResponsible Observ er: APPEARANCE APPEARANCE 300.3400 (A) Color Ur See Note None Note: YELLOWYELLOWLYELLOWResponsible Obs erver: COLOR COLOR 300.3330 (A) Leukocyte esterase Ur Ql Strip See Note (NEGATIVE) None Note: [id number] E@DO MICRO!!!!A Culture has been added to this specimen per established criteriaResponsible Observer: LEUKOCYTES LEUKOCYTES 300.3576 (C) Nitrite Ur Ql Strip See Note (NEGATIVE) None Note: [id number] EResponsible Observer: NITRITE NITRITE 300.3652 (B) pH [...] are final unless otherwise noted. Urine culture [facility] Ordered by Maya Barron MD on 04/16/2020 Collected: 04/16/2020 Reported: 04/18/2020 06:47 Urine culture result See Note None Note: Less than 10,000 CFU/MLNormal Comm ensal FloraProbable contaminants no senst done NOTES See Note None Note: @04/16/20 2351: Urine culture adde d. RFLXG = CULT.ADD. Reviewed by Maya Barron MD on 04/18; All test results are final unless otherwise noted. Reported Physicians [facility] Ordered by Maya Barron MD on 04/16/2020 Collected: 04/16/2020 Reported: 04/18/2020 06:47 Reported Physicians See Note None Note: Reported Physicians:Ordering: Randy Joseending: Alix Jose To: Maya Barron Reviewed by Maya Barron MD on 04/18; All test results are final unless otherwise noted. CBC W AUTO DIFF [facility] Ordered by Maya Barron MD [...] Auto See Note (0-2) N (Normal) Note: [id number] Ob server administrator: IG% IG% 100.1375 (B) Hct VFr Bld [...] are final unless otherwise noted. BHCG, QUANTITATIVE [facility] Ordered by Maya Barron MD [...] are final unless otherwise noted. Reported Physicians [facility] Ordered by Maya Barron MD on 04/16/2020 Collected: 04/16/2020 Reported: 04/16/2020 22:47 Reported Physicians See Note None Note: Reported Physicians:Ordering: Jose E JoseodAttending: Damon VinodCopy To: Maya Barron Reviewed by Maya Barron MD on 04/17; All test results are final unless otherwise noted. CMP [facility] Ordered by Maya Barron MD [...] are final unless otherwise noted. Reported Physicians [facility] Ordered by Maya Barron MD on 04/16/2020 Collected: 04/16/2020 Reported: 04/16/2020 22:44 Reported Physicians See Note None Note: Reported Physicians:Ordering: Damon , VinodAttending: Damon, VinodCopy To: Maya Barron Reviewed by Maya Barron MD on 04/17; All test results are final unless otherwise noted. LIPASE [facility] Ordered by Maya Barron MD on 04/16/2020 Collected: 04/16/2020 Reported: 04/16/2020 22:44 Lipase SerPl-cCnc 107 enzyme_unit_per_liter (73-393) N (Normal) Note: Responsible Observer: Lipase Lipas e 400.2310 (G) Reviewed by Maya Barron MD on 04/17; All test results are final unless otherwise noted. Reported Physicians [facility] Ordered by Maya Barron MD on 04/16/2020 Collected: 04/16/2020 Reported: 04/16/2020 22:44 Reported Physicians See Note None Note: Reported Physicians:Ordering: Jose E JoseodAttending: Damon, VinodCopy To: Maya Barron Reviewed by Maya Barron MD on 04/17; All test results are final unless otherwise noted. Type and Screen [facility] Ordered by Maya Barron MD [...] are final unless otherwise noted. Reported Physicians [facility] Ordered by Maya Barron MD on 04/16/2020 Collected: 04/16/2020 Reported: 04/16/2020 23:09 Reported Physicians See Note None Note: Reported Physicians:Ordering: Romel Josettending: Alix Jose To: Maya Barron Reviewed by Maya Barron MD on 04/17; All test results are final unless otherwise noted. [facility] Ordered by Maya Barron MD on 04/10/[address] [place] [address], [id number] Collected: 04/10/2020 Reported: 04/11/2020 11:35 tel : [...] test results are final unless otherwise noted. [facility] Ordered by Maya Barron MD on 04/10/[address] [place] [address], [facility] Collected: 04/10/2020 Reported: 04/11/2020 11:35 tel : [...] Ordered by Maya Barron MD on 04/10/[address] [place] [address], [id number] Collected: 04/10/2020 Reported: 04/11/2020 11:35 tel :[phone] ext. [phone] TSH 1.336 uIu/mL (0.5-5.8) None Note: Responsible Observer: AW Reviewed by Maya Barron MD on 04/12; All test results are final unless otherwise noted. Urinalysis w/out microscopy Office Lab Ordered by Maya Barron MD on [address] [place] [address], [id number] Specimen Source: Urine Collected: Reported: 2020 11:41 tel:[phone] bilirubin NEGATIVE (neg) N (Normal) blood NEGATIVE [...] Description Last Updated Under stress financially stressed, aicha ggling with rent, food, living necessities 07/11/2020 Smoking status : Never smoker 08/07/2019 No consumption of alcohol 03/04/2018 No tobacco use 03/04/2018 Not using drugs 03/04/2018 Procedures and Surgical History Includes: Procedures from 03/07/2020 through 03/07/2021 Procedures Code Diagnosis Performing Provider Service Location Service Date REVISIT- office visit KAYLEIGH 38 weeks gestatio n of Cat Gutierrez RPA [facility], [facility] 02/27/2021 REVISIT- office visit KAYLEIGH 34 weeks gestatio n of Maya Barron MD [facility], [facility] 02/23/2021 REVISIT- office visit KAYLEIGH 29 weeks gestatio n of Maya Barron MD [facility], [facility] 01/16/2021 REVISIT- office visit KAYLEIGH 27 weeks gestatio n of Maya Barron MD [facility], [facility] 12/26/2020 REVISIT- office visit KAYLEIGH 23 weeks gestatio n of Maya Barron MD [facility], [facility] 12/05/2020 REVISIT- office visit KAYLEIGH 22 weeks gestatio n of Maya Barron MD [facility], [facility] 11/28/2020 no charge procedure NC Tension-type headache, unspe cified, intractable Maya Barron MD [facility], [facility] 11/21/2020 REVISIT- office visit KAYLEIGH 21 weeks gestatio n of Maya Barron MD [facility], [facility] 11/21/2020 REVISIT- office visit KAYLEIGH 20 weeks gestatio n of Maya Barron MD [facility], [facility] 11/14/2020 no charge procedure NC Palpitations Maya Barron MD [facility], [facility] 11/03/2020 no charge procedure NC Palpitations Maya Barron MD [facility], [facility] 10/31/2020 REVISIT- office visit KAYLEIGH 18 weeks gestatio n of Maya Barron MD [facility], [facility] 10/31/2020 REVISIT- office visit KAYLEIGH 17 weeks gestatio n of Maya Barron MD [facility], [facility] 10/24/2020 no charge procedure NC Palpitations Maya Barron MD [facility], [facility] 10/17/2020 REVISIT- office visit KYALEIGH 16 weeks gestatio n of Maya Barron MD [facility], [facility] 10/17/2020 Holter Monitor, Physician review & interpretation only [id number] Palpitations Michel Villalba MD [facility] Outpt 10/11/2020 REVISIT- office visit KAYLEIGH 15 weeks gestatio n of Maya Barron MD [facility], [facility] 10/11/2020 REVISIT- office visit KAYLEIGH 13 weeks gestatio n of Maya Barron MD [facility], [facility] 09/27/2020 REVISIT- office visit KAYLEIGH 12 weeks gestatio n of Maya Barron MD [facility], [facility] 09/19/2020 EKG- Electrocardiogram/12 lead 88762 Chest pain, unspe cified Cat Gutierrez [facility], [facility] 09/11/2020 REVISIT- office visit KAYLEIGH 10 weeks gestatio n of Cat Gutierrez [facility], [facility] 09/05/2020 REVISIT- office visit KAYLEIGH 8 weeks gestation of Maya Barron MD [facility], [facility] 08/22/2020 Urinalysis w/o Microscopy (Distinct Seperate service-same da y) 91152 Frequency of micturition- Urinary Frequency Maya Barron MD [facility], [facility] 08/15/2020 RAPID STREP 08216 Acute pharyngitis, unspecified Maya Barron MD [facility], [facility] 08/15/2020 Initial Obstetrical Care Office Visit OB Le ss than 8 weeks gestation of Cat Gutierrez [facility], [facility] 021 Urinalysis w/o Microscopy [id number] Frequency of micturiti on- Urinary Frequency Maya Barron MD [facility], [facility] 07/19/2020 REVISIT- office visit KAYLEIGH Threatened Alicja Barron MD [facility], [facility] 05/26/2020 NO CHARGE- Nurse visit- OB establish [employer] Thr eatened , state, incidental Maya Barron MD [facility], [facility] 020 General Health Panel( CMP, CBC, TSH) 88946 Dysmenorrhe a, unspecified Maya Barron MD [facility], [facility] 04/10/2020 Venipuncture (routine) 23303 Dysmenorrhea, unspecified Mariela Barron MD [facility], [facility] 04/10/2020 Brief Emotional Behavior Assessment 41802 Scre ening for Mental Health/Behavioral Disorder, Unspecified Maya Barron MD [facility], [facility] 04/10/2020 Surgical History Last Updated No [...] 2 01/16/2021 Left Deltoid Complete (A dministered) [facility] Varicella 1 04/18/2000 Complete (Reported) Patient Varicella 2 04/29/2016 Complete (Reported) Patient Allergies Includes: Active, inactive, and resolved Allergies Substance Type Reaction Onset Date - Time Resolved Date - Ti me Status Naproxen Allergy Skin Rashes 02/01/2020 - 12:00AM Act marquita Encounters Includes: Encounters from 03/07/2020 through 03/07/2021 Encounter Provider Location Date Check-In Time Check-Out Time D iagnosis REVISIT- Routine (OB) Visit Maya Barron MD [facility], [facility] 03/07/2021 10:01AM 02/27/2021 11:59PM REVISIT- Routine (OB) Visit Cat Gutierrez [facility] 02/27/2021 9:52AM 10:21AM REVISIT- Routine (OB) Visit Maya Barron MD [facility], [facility] 02/23/2021 2:25PM 2:41PM REVISIT- Routine (OB) Visit Maya Barron MD [facility], [facility] 01/16/2021 9:52AM 10:23AM Telehealth communication Maya Barron MD [facility], [facility] 01/09/2021 12/26/2020 10:00AM 10:27AM Generalized Anxiety Disorder, Chest Pain, Iron Deficiency Anemia, Upper Respiratory Infection REVISIT- Routine (OB) Visit Maya Barron MD [facility], [facility] 12/26/2020 9:45AM 10:08AM telephone conversation Michel Villalba MD 1 12/14/2020 9:13AM 12/14/2020 11:59PM Atypical Chest Pain telephone conversation Michel Villalba MD 12/14/2020 6:45PM 12/14/2020 11:59PM Hypotension telephone conversation Maya Barron MD [facility] 12/19/2020 12/14/2020 2:14PM 12/14/2020 11:59PM Fracture of Fifth Ce rvical Vertebral Body, History of Psychiatric Disorders, Reactive Airway Disease Problem visit - not contagious Bandar Cleveland PA-C [facility], [facility] 12/14/2020 2:08PM 2:52PM Tension-type Headach e REVISIT- Routine (OB) Visit Maya Barron MD [facility], [facility] 12/05/2020 11:17AM 12:08PM REVISIT- Routine (OB) Visit Maya Barron MD [facility], [facility] 11/28/2020 1:34PM 1:51PM Chronic Care Mgt - Office Visit Maya Barron MD [facility], [facility] 11/21/2020 2:10PM 2:35PM Fracture of Fift h Cervical Vertebral Body, History of Psychiatric Disorders, Reactive Airway Disease REVISIT- Routine (OB) Visit Maya Barron MD [facility], [facility] 11/21/2020 11:33AM 12:01PM REVISIT- Routine (OB) Visit Maya Barron MD [facility], [facility] 11/14/2020 9:55AM 10:36AM REVISIT- Routine (OB) Visit Maya Barron MD [facility], [facility] 11/07/2020 11:42AM 12:02PM OB- ILL VISIT Maya Barron MD [facility], [facility] 11/03/2020 3:45PM 4:29PM , Generalized Anxie ty Disorder, Panic Disorder, Chest Pain Chronic Care Mgt - Office Visit Maya Barron MD [facility], [facility] 11/03/2020 2:37PM 3:38PM Chronic Care Mgt - Office Visit Maya Barron MD [facility], [facility] 10/31/2020 3:23PM 3:24PM Fracture of Fift h Cervical Vertebral Body, History of Psychiatric Disorders, Reactive Airway Disease REVISIT- Routine (OB) Visit Maya Barron MD [facility], [facility] 10/31/2020 9:54AM 10:24AM Chronic Care Mgt - Office Visit Maya Barron MD [facility], [facility] 10/24/2020 2:16PM 11:59PM REVISIT- Routine (OB) Visit Maya Barron MD [facility], [facility] 10/24/2020 10:00AM 10:47AM REVISIT- Routine (OB) Visit Maya Barron MD [facility], [facility] 10/17/2020 11:24AM 12:12PM Chronic Care Mgt - Office Visit Maya Barron MD [facility], [facility] 10/17/2020 11:25AM 12:11PM Fracture of Fift h Cervical Vertebral Body, History of Psychiatric Disorders, Reactive Airway Disease REVISIT- Routine (OB) Visit Maya Barron MD [facility], [facility] 10/11/2020 9:44AM 10:15AM OB- ILL VISIT Maya Barron MD [facility], [facility] 10/04/2020 2:12PM 2:31PM Presyncope Syndrome, Tachyca rdia, Palpitations, Difficulty Breathing (Dyspnea), Weeks of Gestation - 14 REVISIT- Routine (OB) Visit Maya Barron MD [facility], [facility] 09/27/2020 1:36PM 1:59PM telephone conversation Michel Villalba MD 09/19/2020 9:43PM 09/19/2020 11:59PM Atypical Chest Pain REVISIT- Routine (OB) Visit Maya Barron MD [facility], [facility] 09/19/2020 9:48AM 10:14AM REVISIT- Routine (OB) Visit Cat Gutierrez [facility], [facility] 09/11/2020 3:22PM 4:16PM REVISIT- Routine (OB) Visit Cat Gutierrez [facility], [facility] 09/05/2020 9:37AM 10:00AM TCMNV phone call- NO CHARGE Cat Gutierrez [facility] 09/04/2020 09/05/2020 4:54PM 09/05/2020 11:59PM [Patient Encounter] Cat Gutierrez [facility] 08/31/2020 021 2:21PM 08/22/2020 11:59PM telephone conversation Michel Villalba MD 08/2808/22/2020 11:00AM 08/22/2020 11:59PM REVISIT- Routine (OB) Visit Maya Barron MD [facility], [facility] 08/22/2020 1:56PM 2:19PM sick visit Maya Barron MD [facility], [facility] 0 08/15/2020 9:36AM 10:12AM Upper Respiratory Infection Acute, Pollakiuria Obstetrics/ first visit Cat Gutierrez [facility], [facility] 08/09/2020 9:22AM 10:56AM followup Cat Gutierrez [facility], [facility] 0 08/02/2020 10:18AM 11:42AM Generalized Anxiety Disorder , Early Stage, Abdominal Pain telephone conversation Michel Villalba MD 07/26/2020 7:59AM 07/26/2020 11:59PM [Patient Encounter] Cat Gutierrez [facility] 07/28/2020 021 2:20PM 07/26/2020 11:59PM followup Maya Barron MD [facility] 0 07/26/2020 10:39AM 11:02AM , Generalized Anxie ty Disorder sick visit Bandar Cristofer LENNON [facility], [facility] 3:36PM 4:30PM Pyrexia followup Maya Barron MD [facility] 0 07/19/2020 10:52AM 11:30AM , Generalized Anxie ty Disorder, Pollakiuria followup Maya Barron MD [facility] 1 09/11/2019 10:43AM 11:14AM Atypical Chest Pain, Adjustm ent Disorder followup Maya Barron MD [facility] 1 08/07/2019 10:43AM 10:59AM Missed followup Maya Barron MD [facility] 05/26 1:45PM 2:11PM with Threatened Problem visit - not contagious Maya Barron MD [facility] 05/24/2020 11:13AM 12:00PM with T hreatened [Patient Encounter] Maya Barron MD 05/24/2020 020 10:17AM 04/19/2020 11:59PM followup Maya Barron MD [facility] 1 11:51AM 12:08PM ANNUAL PE-followup Maya Barron MD [facility] 04/10/2020 8:42AM 9:13AM Routine History and Physical Adult (18 - 64 Yrs), Dysmenorrhea Insurance Includes: Active Insurance Policies Plan Name Member ID Group # Subscriber Relationship Effective Da greg 1 - MANAGED MEDICAID [facility] [id number] Georgiana Nguyen 07/14/2020 - Unknown Advance Directives Includes: Current Advance DirectivesNo Advance Directives Recorded Health Concerns Includes: Active Health ConcernsNo Active Health Concerns Recorded Goals Includes: Active GoalsNo Active Goals Recorded Interventions Includes: Interventions for active GoalsNo Interventions Recorded Evaluations & Outcomes Includes: Evaluations & Outcomes for active GoalsNo Outcomes Recorded
--- OUTSIDE RECORDS SUMMARY | 2021-04-29 16:42 | CCD ---
Author Author [facility] Organization [facility] Address [address] [place] [address] Phone Care Team Providers Care [employer] Name Role Phone Anderson GILL, Maya Duke PP [phone] Kimberly White DPM Unavailable Unavailable Reason for [...] Results Due Ordering Provi yaima Outside Labs GBS culture 35 weeks gestation of 03/06/21 Cat Gutierrez RPA Rads U/S - a. Ultrasound OB US-36wk (TRUE, Presentation, Sheila mated Weight) state, incidental 03/13/21 Maya Barron MD Future Appointments Date Time Location Provider REVISIT- Routine (OB) Visit 03/06/2021 10:00AM [facility] Maya Barron MD REVISIT- Routine (OB) Visit 03/13[facility]21 [facility]ine (OB) Visit 03/20/2021 10:00AM [facility] SOLE Chopra [facility] REVISIT- Routine (OB) Visit 03/27[facility]21 [facility] Findings Encounter Date Community resources No referrals needed at this time Chronic Care Mgt - Office Visit with Maya Barron MD 10/17/2020 Follow-up visit date 10/17/2020 PCP visi t and CCM visit (Dr. Barron and Esther Howlel,EHSAN) Chronic Care Mgt - Office Visit with [...] or concerns sick visit with Cat Gutierrez [facility] 10/30/2018 Assessments Includes: Assessments for all [...] surance provided today. 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 [Encounter for general adult medical examination with abnormal findings] ANNUAL PE-followup exam/30 with Maya Barron MD 04/07/2019 Vaginal candidiasis sick visit with Cat Gutierrez RPA 02/11 Pharyngitis urgent visit with Bandar Cleveland PA-C 2018 Sprained ribs ; left sick visit with Cat Gutierrez RPA Strain of muscle and tendon of front wall of thorax si ck visit with Cat Gutierrez RPA 10/30/2018 Fracture of fifth cervical vertebral body No Fault with Wanda Huston [facility] 03/04/2018 Late effects of accident No Fault with Cat Huston [facility] 0 03/04/2018 Instructions Instructions not supported for this document typeNo Instructions Recorded Medical Equipment - Implanted Devices Includes: Current and historical DevicesNo Medical Equipment Recorded Medications Includes: Current and historical Medications Current Medications (continue as prescribed) Lidocaine 5% External Patch 12/07/2020 Provider: Maya [...] hydrOXYzine HCl 25 MG Oral Tablet 10/24/2020 Provid er: Maya Barron MD Diagnosis: 1 every 4 - 6 hours as needed for anxiety Colace 100 MG Oral Capsule 06/07/2020 Provider: [...] off 12hrs to affected area on chest Ventolin HFA 108 (90 Base) MCG/ACT Inhalation Aerosol Solution 09/05/2020 - 11/04/2020 Provider: Cat Gutierrez RPA Diagnosis: Other asthma- reacti ve airway disease 2 puffs q4hr prn Monistat 7 Combo Pack Chava 100 & 2 MG-% (9GM) Vaginal K it 08/31/2020 - 09/07/2020 Provider: Cat Gutierrez [facility] Diagnosis: as directed - Insert 1 [...] 08/10/2020 - 08/17/2020 Pro vider: Cat Gutierrez [facility] Diagnosis: 1 PO BID Sertraline HCl 50 MG Oral Tablet 08/02/2020 - 08/22/2020 Pro vider: Cat Gutierrez [facility] Diagnosis: as directed - Take 1/2 [...] Oral Tablet 02/26/2019 - 02/28/2019 Provider: Cat uGtierrez RPA Diagnosis: 1 PO QD Medications Administered Includes: Administered Medications in patient's chartNo Administered Medications Recorded Vital Signs Includes: Vital Signs from 02/28/2020 through 02/27/2021 Vital Name 02/27/2021 10:07A 02/23/2021 02:35P 01/16/2021 10:00A 12/26/2020 09:58A 12/14/2020 02:15P Blood Pressure Sitting (mmHg) 102/60 102/64 102/50 Weight (lb) 142 139 133 130 126.6 Blood Pressure Sitting L 100/54 98/62 BP Cuff Size Regular Regular Pulse Rate-Sitting (bpm) 92 95 88 98 Respiration Rate (breaths/min) 20 18 20 20 Oxygen Saturation (%) 98 Vital Name 12/05/2020 11:47A 11/28/2020 01:44P 11/21/2020 11:41A 11/14/2020 10:01A 11/07/2020 11:52A Weight (lb) 126 123 122 121 121 Blood Pressure Sitting L 100/62 100/60 92/54 BP Cuff Size Regular Regular Regular Regular Regular Pulse Rate-Sitting (bpm) 80 88 76 72 80 Respiration Rate (breaths/min) 20 20 20 20 20 Blood Pressure Sitting R 92/60 100/60 Vital Name 11/03/2020 04:01P 10/31/2020 10:02A 10/24/2020 10:12A 10/17/2020 11:34A 10/11/2020 09:56A Weight (lb) 117 120 120 118 120 Blood Pressure Sitting L 100/62 100/60 100/60 110/56 BP Cuff Size Regular Regular Regular Regular Regular Pulse Rate-Sitting (bpm) 80 88 80 80 76 Respiration Rate (breaths/min) 20 20 20 20 20 Blood Pressure Sitting R 100/60 Vital Name 10/04/2020 02:18P 09/27/2020 01:44P 09/19/2020 09:58A 09/11/2020 03:39P 09/05/2020 09:48A Blood Pressure Sitting (mmHg) 104/60 110/68 Weight (lb) 118 120 119 118 119 Blood Pressure Sitting L 110/60 98/62 100/60 BP Cuff Size Regular Regular Regular Pulse Rate-Sitting (bpm) 116 76 76 Respiration Rate (breaths/min) 24 20 20 Vital Name 08/22/2020 02:14P 08/15/2020 09:54A 08/09/2020 09:27A 08/02/2020 10:58A 07/26/2020 10:46A Blood Pressure Sitting (mmHg) 112/60 100/72 90/50 98/60 118/76 Weight (lb) 121 121 123 124 Pulse Rate-Sitting (bpm) 78 72 72 64 86 Respiration Rate (breaths/min) 18 20 20 18 Oxygen Saturation (%) 98 Temp-Tympanic (F) 97.3 Height (in) 65 65 Body Mass Index (kg/m2) 20.1 2 0.6 Body Surface Area (m2) 1.60 1. 61 Temp-Oral (F) 98.5 Vital Name 07/25/2020 04:09P 07/19/2020 11:05A 07/11/2020 10:56A 06/07/2020 10:51A 05/26/2020 01:50P Blood Pressure Sitting (mmHg) 116/80 120/80 124/80 118/72 Weight (lb) 126 121.6 125 119 118.2 Blood Pressure Sitting L 102/62 BP Cuff Size Regular Pulse Rate-Sitting (bpm) 80 114 78 72 86 Respiration Rate (breaths/min) 20 18 20 20 Oxygen Saturation (%) 98 98 Temp-Tympanic (F) 98.2 Height (in) 65 65 64 Body Mass Index (kg/m2) 20.2 20.8 20.4 Body Surface Area (m2) 1.60 1.62 1.57 Temp-Oral (F) 98.2 98.5 Vital Name 05/24/2020 12:01P 04/19/2020 11:58A 04/10/2020 08:48A 03/06/2020 03:38P Blood Pressure Sitting (mmHg) 110/72 108/60 118/82 Weight (lb) 117.8 116 116.2 Pulse Rate-Sitting (bpm) 87 72 102 Respiration Rate (breaths/min) 20 20 20 Oxygen Saturation (%) 97 Height (in) 64 Body Mass Index (kg/m2) 19.9 Body Surface Area (m2) 1.55 Results Includes: Results from 02/28/2020 through 02/27/2021 TROPONIN T [facility] Ordered by Maya Barron MD on 02/22/2021 Collected: 02/22/2021 Reported: 02/22/2021 00:25 TROPONIN T <0.01 NG/ML (0.00 - 0.10) None Note: TROPONIN T0.1 ng/ml Recommended as the clinical threshold value forTroponin T.Responsible Observer: (LBS) Reviewed by Maya Barron MD on 02/23; All test results are final unless otherwise noted. Reported Physicians [facility] Ordered by Maya Barron MD on 02/22/2021 Collected: 02/22/2021 Reported: 02/22/2021 00:26 Reported Physicians See Note None Note: Reported Physicians:Ordering: TURR IN, RICCARDOAttending: TURRIN, RICCARDOConsulting: Rubén BARRON To: ROBERTO, ARIACARDOCopy To: JESSEE MEJIA Reviewed by Maya Barron MD on 02/23; All test results are final unless otherwise noted. LIPASE SERUM [facility] Ordered by Maya Barron MD on 02/21/2021 Collected: 02/21/2021 Reported: 02/21/2021 21:42 LIPASE 22 U/L (13 - 60) None Note: Responsible Observer: (ABIOLA) Reviewed by Maya Barron MD on 02/23; All test results are final unless otherwise noted. Reported Physicians [facility] Ordered by Maya Barron MD on 02/21/2021 Collected: 02/21/2021 Reported: 02/21/2021 21:42 Reported Physicians See Note None Note: Reported Physicians:Ordering: TURR IN, RICCARDOAttending: ROBERTO, RICCARDOConsulting: Rubén BARRON To: ROBERTO, RICCARDOCopy To: ROBERTO JESSEE Reviewed by Maya Barron MD on 02/23; All test results are final unless otherwise noted. TROPONIN T [facility] Ordered by Maya Barron MD on 02/21/2021 Collected: 02/21/2021 Reported: 02/21/2021 21:47 TROPONIN T <0.01 NG/ML (0.00 - 0.10) None Note: TROPONIN T0.1 ng/ml Recommended as the clinical threshold value forTroponin T.Responsible Observer: (ABIOLA) Reviewed by Maya Barron MD on 02/23; All test results are final unless otherwise noted. Reported Physicians [facility] Ordered by Maya Barron MD on 02/21/2021 Collected: 02/21/2021 Reported: 02/21/2021 21:47 Reported Physicians See Note None Note: Reported Physicians:Ordering: TURR IN, RICCARDOAttending: ROBERTO, RICCARDOConsulting: Rubén BARRON To: HOLLYRIN, RICCARDOCopy To: HOLLYRIN, JESSEE Reviewed by Maya Barron MD on 02/23; All test results are final unless otherwise noted. COMPREHENSIVE METABOLIC PANEL [facility] Ordered by Maya Barron [...] are final unless otherwise noted. Reported Physicians [facility] Ordered by Maya Barron MD on 02/21/2021 Collected: 02/21/2021 Reported: 02/21/2021 21:47 Reported Physicians See Note None Note: Reported Physicians:Ordering: HOLLYR IN, RICCARDOAttending: ARIA MEJIACARConsulting: Rubén BARRON To: ARIA MEJIACARDOCopy To: JESSEE MEJIA Reviewed by Maya Barron MD on 02/23; All test results are final unless otherwise noted. CBC W/AUTOMATED DIFF [facility] Ordered by Maya Barron [...] are final unless otherwise noted. Reported Physicians [facility] Ordered by Maya Barron MD on 02/21/2021 Collected: 02/21/2021 Reported: 02/21/2021 21:21 Reported Physicians See Note None Note: Reported Physicians:Ordering: ARIA HERNANDEZCARDOAttending: ARIA MEJIACARConsulting: Rubén BARRON To: Saleem MEJIA To: JESSEE MEIJA Reviewed by Maya Barron MD on 02/23; All test results are final unless otherwise noted. 1HR GESTATIONAL GLUCOSE (50gm) [facility] Ordered by Maya Barron MD [...] are final unless otherwise noted. Reported Physicians [facility] Ordered by Maya Barron MD on 01/30/2021 Collected: 01/30/2021 Reported: 01/30/2021 14:23 Reported Physicians See Note None Note: Reported Physicians:Ordering: Maya AlvarengaAttending: Maya Barron Reviewed by Maya Barron MD on 01/31; All test results are final unless otherwise noted. Urine culture [facility] Ordered by Maya Barron MD on 01/30/2021 Collected: 01/30/2021 Reported: 02/01/2021 06:50 Urine culture result No growth None Reviewed by Maya Barron MD on 02/02; All test results are final unless otherwise noted. Reported Physicians [facility] Ordered by Maya Barron MD on 01/30/2021 Collected: 01/30/2021 Reported: 02/01/2021 06:50 Reported Physicians See Note None Note: Reported Physicians:Ordering: Cara Alvarengaending: Maya Barron Reviewed by Maya Barron MD on 02/02; All test results are final unless otherwise noted. ADD ON MICROSCOPIC [facility] Ordered by Maya Barron MD on 01/30/2021 Collected: 01/30/2021 Reported: 01/30/2021 12:35 ADD ON MICROSCOPIC See Note (0-5) H (High) Note: NOTES OTHER/NOT INTERPRETED Bacteria UrnS Ql Micro MODERATE AMOUNT Bacteria UrnS Ql Micro MODERATE AMOUNT Bacteria UrnS Ql Micro L Bacteria UrnS Ql Micro Bacteria UrnS Ql Micro Bacteria UrnS Ql Micro Bacteria UrnS Ql Micro [id number] Bacteria UrnS Ql Micro Bacteria UrnS Ql [...] Ql Micro Mucous Threads UrnS Ql Micro [id number] Mucous Threads UrnS Ql Micro Mucous Threads UrnS Ql Micro LARGE AMOUNT WBC # Ur Manual 15-20 @01/30/21 1230: UA W/ MICRO added. RFLXG = UMIC.Method of Collection:: VoidedResponsible Observer: WBC WBC 300.5000 (A) Reviewed by Maya Barron MD on 01/31; All test results are final unless otherwise noted. Reported Physicians [facility] Ordered by Maya Barron MD on 01/30/2021 Collected: 01/30/2021 Reported: 01/30/2021 12:36 Reported Physicians See Note None Note: Reported Physicians:Ordering: Maya AlvarengaAttending: Maya Barron Reviewed by Maya Barron MD on 01/31; All test results are final unless otherwise noted. URINALYSIS [facility] Ordered by Maya Barron MD on 01/30/2021 Collected: 01/30/2021 Reported: 01/30/2021 12:35 Urobilinogen Ur Ql See Note (0.2-1 EU/dl) None Note: 0.2 EU/dl0.2 EU/[id number] E U/dlResponsible Observer: UROBILINOGEN UROBILINOGEN 300.4500 (C) RBC # Ur Strip NEGATIVE (NEGATIVE) None Note: Responsible Observer: BLOOD BLOOD 300.4650 (C) Prot Ur Ql Strip See Note (NEGATIVE) None Note: [id number] ble Observer: PROTEIN PROTEIN 300.3750 (C) Ketones Ur Ql Strip See Note (NEGATIVE) None Note: 15 mg/dL15 mg/[id number] mg/d LResponsible Observer: KETONE KETONE 300.3900 (C) Bilirub Ur Ql Strip.auto See Note (NEGATIVE) None Note: [id number] EResponsible Observer: BILIRUBIN BILIRUBIN 300.4550 (C) Glucose Ur Strip.auto-mCnc NEGATIVE (NEGATIVE) None Note: Responsible Observer: GLUCOSE GLUC OSE 300.3850 (C) Appearance Ur See Note (CLEAR) None Note: CLEARCLEARLCLEARResponsible Observ er: APPEARANCE APPEARANCE 300.3400 (A) Color Ur See Note None Note: YELLOWYELLOWLYELLOWResponsible Obs erver: COLOR COLOR 300.3300 (A) Leukocyte esterase Ur Ql Strip See Note (NEGATIVE) None Note: [id number] E@DO MICRO!!!!Responsible Observer: LEUKOCYTES LEUKOCYTES 300.3575 (C) Nitrite Ur Ql Strip See Note (NEGATIVE) None Note: [id number] EResponsible Observer: NITRITE NITRITE 300.3650 (B) pH [...] are final unless otherwise noted. Reported Physicians [facility] Ordered by Maya Barron MD on 01/30/2021 Collected: 01/30/2021 Reported: 01/30/2021 12:36 Reported Physicians See Note None Note: Reported Physicians:Ordering: Maya AlvarengaAttending: Maya Barron Reviewed by Maya Barron MD on 01/31; All test results are final unless otherwise noted. CBC W AUTO DIFF [facility] Ordered by Maya Barron MD [...] Auto See Note (0-2) N (Normal) Note: [id number] Ob line server: IG% IG% 100.1375 (B) Hct VFr Bld [...] test results are final unless otherwise noted. [facility] Ordered by Maya Barron [...] NOTES See Note None Note: Test(s)[place] [address] Reviewed by Maya Barron MD on 01/12; All test results are final unless otherwise noted. Reported Physicians [facility] Ordered by Maya Barron MD on 01/11/2021 Collected: 01/11/2021 Reported: 01/11/2021 17:30 Reported Physicians See Note None Note: Reported Physicians:Ordering: Les Vanegasding: Fady Raza To: Maya Barron Reviewed by Maya Barron MD on 01/12; All test results are final unless otherwise noted. TROPONIN [facility] Ordered by Maya Barron MD on 01/11/2021 Collected: 01/11/2021 Reported: 01/11/2021 17:30 Troponin I SerPl-mCnc Less Than 0.015 (0.00-0.09) N (Normal) Note: Less than 0.09 NG/ML Negative 0.10 - 0.77 NG/ML High Risk0.78 NG/ML or Greater PositiveThe WHO defined the cutoff (definition for diagnosis of [place])for this method as 0.78 ng/ml.Responsible Observer: Troponin I Troponin I 600.1101 (G) NOTES See Note None Note: Test(s)[place] [address] Reviewed by Maya Barron MD on 01/12; All test results are final unless otherwise noted. Reported Physicians [facility] Ordered by Maya Barron MD on 01/11/2021 Collected: 01/11/2021 Reported: 01/11/2021 17:30 Reported Physicians See Note None Note: Reported Physicians:Ordering: Les Vanegas: Fady Raza To: Maya Barron Reviewed by Maya Barron MD on 01/12; All test results are final unless otherwise noted. TSH w/ reflex to Free T4 [facility] Ordered by Maya Barron MD on 01/11/2021 Collected: 01/11/2021 Reported: 01/11/2021 17:30 TSH SerPl DL<=0.005 mIU/L-aCnc 1.05 MicroInternationalUnitsPerMilliLiter_[Arbitrary_Con (0.35-5. 50) N (Normal) Note: Responsible Observer: TSH TSH 600 .7060 (D) NOTES See Note None Note: Test(s)[place] [address] Reviewed by aMya Barron MD on 01/12; All test results are final unless otherwise noted. Reported Physicians [facility] Ordered by Maya Barron MD on 01/11/2021 Collected: 01/11/2021 Reported: 01/11/2021 17:30 Reported Physicians See Note None Note: Reported Physicians:Ordering: Les Vanegas: Fady Raza To: Maya Barron Reviewed by Maya Barron MD on 01/12; All test results are final unless otherwise noted. UA W/ CULTURE IF ABNORMAL [facility] Ordered by Maya Barron MD on 12/28/2020 Collected: 12/28/2020 Reported: 12/28/2020 21:56 Urobilinogen Ur Ql See Note (0.2-1 EU/dl) None Note: 0.2 EU/dl0.2 EU/[id number] E U/dlResponsible Observer: UROBILINOGEN UROBILINOGEN 300.4500 (C) RBC # Ur Strip NEGATIVE (NEGATIVE) None Note: Responsible Observer: BLOOD BLOOD 300.4652 (C) Prot Ur Ql Strip See Note (NEGATIVE) None Note: [id number] EResponsible Observer: PROTEIN PROTEIN 300.3750 (C) Ketones Ur Ql Strip See Note (NEGATIVE) None Note: [id number] EResponsible Observer: KETONE KETONE 300.3900 (C) Bilirub Ur Ql Strip.auto See Note (NEGATIVE) None Note: [id number] EResponsible Observer: BILIRUBIN BILIRUBIN 300.4550 (C) Glucose Ur Strip.auto-mCnc 250 mg/dl (NEGATIVE) None Note: Responsible Observer: GLUCOSE GLUC OSE 300.3850 (C) Appearance Ur See Note (CLEAR) A (Abnormal) Note: TURBIDTURBIDLTURBIDResponsible Obs erver: APPEARANCE APPEARANCE 300.3400 (A) Color Ur See Note None Note: YELLOWYELLOWLYELLOWResponsible Obs erver: COLOR COLOR 300.3330 (A) Leukocyte esterase Ur Ql Strip See Note (NEGATIVE) None Note: [id number]@DO MICR O!!!!A Culture has been added to this specimen per established criteriaResponsible Observer: LEUKOCYTES LEUKOCYTES 300.3576 (C) Nitrite Ur Ql Strip See Note (NEGATIVE) None Note: [id number] EResponsible Observer: NITRITE NITRITE 300.3652 (B) pH [...] are final unless otherwise noted. Urine culture [facility] Ordered by Maya Barron MD on 12/28/2020 Collected: 12/28/2020 Reported: 12/30/2020 08:03 Urine culture result 25,000 CFU/ML Lactobacilli no senst done None NOTES See Note None Note: @12/28/202155: Urine culture flavia sawyer RFLXG = CULT.ADD. Reviewed by Maya Barron MD on 01/01; All test results are final unless otherwise noted. Reported Physicians [facility] Ordered by Maya Barron MD on 12/28/2020 Collected: 12/28/2020 Reported: 12/30/2020 08:03 Reported Physicians See Note None Note: Reported Physicians:Ordering: Sana Recinosending: Sammie Ann To: Maya Barron Reviewed by Maya Barron MD on 01/01; All test results are final unless otherwise noted. ADD ON MICROSCOPIC [facility] Ordered by Maya Barron MD [...] Ql Micro Amorph Sed UrnS Ql Micro [id number] Amorph Sed UrnS Ql Micro Amorph Sed UrnS Ql Micro LARGE AMT URATES Bacteria UrnS Ql Micro SMALL AMOUNT Bacteria UrnS Ql Micro SMALL AMOUNT Bacteria UrnS Ql Micro L Bacteria UrnS Ql Micro Bacteria UrnS Ql Micro Bacteria UrnS Ql Micro Bacteria UrnS Ql Micro [id number] Bacteria UrnS Ql Micro Bacteria UrnS Ql Micro SMALL AMOUNT Cells UrnS Micro MANY Cells UrnS Micro MANY Cells UrnS Micro MANY Cells UrnS Micro L Cells UrnS Micro Cells UrnS Micro Cells UrnS Micro Cells UrnS Micro Cells UrnS Micro WBC # Ur Manual 3-5 Reason for ordering culture: Abnormal findings UA@06/17/21 2156: UA W/ MICRO added. RFLXG = UMIC CIF .Method of Collection:: VoidedResponsible Observer: WBC WBC 300.5005 (A) Reviewed by Maya Barron MD on 01/01; All test results are final unless otherwise noted. Reported Physicians [facility] Ordered by Maya Barron MD on 12/28/2020 Collected: 12/28/2020 Reported: 12/28/2020 21:56 Reported Physicians See Note None Note: Reported Physicians:Ordering: Sana Recinosending: Sammie Ann To: Maya Barron Reviewed by Maya Barron MD on 01/01; All test results are final unless otherwise noted. Cepheid SARS/FLU/RSV RT-PCR [facility] Ordered by Maya Barron MD [...] by FDA under an EUA for use [facility] [id number]-aro CoV RNA Resp Ql ТАТЬЯНА+tqpboTGJNGHPZFME-UOV-2 NOT [id number]-CBA-3 NOT [id number] RNA Resp Ql ТАТЬЯНА+probeLNNFLUAInfluenza A Not Det [id number] A Not Dbxblkrf89536-7JIZMP RNA Resp Ql ТАТЬЯНА+probeLNNINBInfluenza B Not [id number] B Not Pgviysea23217- 2RSV RNA Resp Ql ТАТЬЯНА+probeLNNRSVRSV Not [id number] Not Detected Reviewed by Maya Barron MD on 01/01; All test results are final unless otherwise noted. Reported Physicians [facility] Ordered by Maya Barron MD on 12/28/2020 Collected: 12/28/2020 Reported: 12/28/2020 22:13 Reported Physicians See Note None Note: Reported Physicians:Ordering: Sana Recinosending: Jasper AnnhCopy To: Maya Barron Reviewed by Maya Barron MD on 01/01; All test results are final unless otherwise noted. CBC W AUTO DIFF [facility] Ordered by Maya Barron MD [...] Auto See Note (0-2) N (Normal) Note: [id number] Ob line server: IG% IG% 100.1375 (B) Hct VFr Bld [...] test results are final unless otherwise noted. [facility] Ordered by Maya Barron [...] test results are final unless otherwise noted. [facility] Ordered by Maya Barron MD on 12/28/2020 Collected: 12/28/2020 Reported: 12/28/2020 21:08 Lactic w Rfx (if elevated) 1.5 MilliMolesPerLiter_[Substance_Concentration_Units] (0.5-2.0) N (Normal) Note: Responsible Observer: Lactic Acid Lactic Acid 400.2831 (G) Reviewed by Maya Barron MD on 01/03; All test results are final unless otherwise noted. Blood Culture (Incl Anaerobic)-1 [facility] Ordered by Maya Barron MD on 12/28/2020 Collected: 12/28/2020 Reported: 01/02/2021 20:38 Bacteria Bld Cult See Note None Note: NG5DNo growth.V1CO7PNH GROWTH AFTE R 5 DAYS Reviewed by Maya Barron MD on 01/03; All test results are final unless otherwise noted. Blood Culture (Incl Anaerobic)-2 [facility] Ordered by Maya Barron MD on 12/28/2020 Collected: 12/28/2020 Reported: 01/02/2021 20:38 Bacteria Bld Cult See Note None Note: NG5DNo growth.J4KP9IHR GROWTH AFTE R 5 DAYS Reviewed by Maya Barron MD on 01/03; All test results are final unless otherwise noted. Reported Physicians [facility] Ordered by Maya Barron MD on 12/28/2020 Collected: 12/28/2020 Reported: 01/02/2021 20:38 Reported Physicians See Note None Note: Reported Physicians:Ordering: Sana Recinosending: Sammie Ann To: Maya Barron Reviewed by Maya Barron MD on 01/03; All test results are final unless otherwise noted. LIPASE SERUM [facility] Ordered by Maya Barron MD on 12/28/2020 Collected: 12/28/2020 Reported: 12/28/2020 04:05 LIPASE 33 U/L (13 - 60) None Note: Responsible Observer: (MLE) Reviewed by Maya Barron MD on 12/29; All test results are final unless otherwise noted. Reported Physicians [facility] Ordered by Maya Barron MD on 12/28/2020 Collected: 12/28/2020 Reported: 12/28/2020 04:06 Reported Physicians See Note None Note: Reported Physicians:Ordering: TURR IN, RICCARDOAttending: TURRIN, RICCARDOConsulting: Rubén BARRON To: TURRIN, RICCARDOCopy To: TURRIN, JESSEE Reviewed by Maya Barron MD on 12/29; All test results are final unless otherwise noted. D-DIMER [facility] Ordered by Maya Barron MD on 12/28/2020 Collected: 12/28/2020 Reported: 12/28/2020 03:46 D-DIMER QUANT 0.36 ug/mL (0.27 - 0.50) None Note: Responsible Observer: (LBS) Reviewed by Maya Barron MD on 12/29; All test results are final unless otherwise noted. Reported Physicians [facility] Lab Ordered by Maya Barron MD on 12/28/2020 Collected: 12/28/2020 Reported: 12/28/2020 03:46 Reported Physicians See Note None Note: Reported Physicians:Ordering: TURR IN, RICCARDOAttending: ROBERTO, RICCARDOConsulting: Rubén BARRON To: TURRIN, RICCARDOCopy To: TURRIN, JESSEE Reviewed by Maya Barron MD on 12/29; All test results are final unless otherwise noted. PT/PTT [facility] Lab Ordered by Maya Barron [...] Thrombosis, Pulmonary Embolus, Tissue heart valves, Acute [place] Atrial Fibrillation, Valvular heart disease and recurrent Systemic Embolism. - International Normalized Ratio (INR): 2.5 - 3.5 for Mechanical Prosthetic valve.Responsible Observer: (LBS) Reviewed by Maya Barron MD on 12/29; All test results are final unless otherwise noted. Reported Physicians [facility] Lab Ordered by Maya Barron MD on 12/28/2020 Collected: 12/28/2020 Reported: 12/28/2020 03:46 Reported Physicians See Note None Note: Reported Physicians:Ordering: TURR IN, RICCARDOAttending: TURRIN, RICCARDOConsulting: MAYA BARRONCopyifan To: TURRIN, RICCARDOCopy To: ARIA MEJIACARDO Reviewed by Maya Barron MD on 12/29; All test results are final unless otherwise noted. CBC W/AUTOMATED DIFF [facility] Lab Ordered by Maya Barron [...] are final unless otherwise noted. Reported Physicians [facility] Lab Ordered by Maya Barron MD on 12/28/2020 Collected: 12/28/2020 Reported: 12/28/2020 03:34 Reported Physicians See Note None Note: Reported Physicians:Ordering: TURR IN, RICCARDOAttending: ARIA MEJIACARDOConsulting: Rubén BARRON To: ROBERTO, ARIACARDOCopy To: JESSEE MEJIA Reviewed by Maya Barron MD on 12/29; All test results are final unless otherwise noted. COMPREHENSIVE METABOLIC PANEL [facility] Ordered by Maya Barron [...] are final unless otherwise noted. Reported Physicians [facility] Lab Ordered by Maya Barron MD on 12/28/2020 Collected: 12/28/2020 Reported: 12/28/2020 04:05 Reported Physicians See Note None Note: Reported Physicians:Ordering: JESSEE HERNANDEZAttending: JESSEE MEJIAConsulting: Rubén BARRON To: JESSEE MEJIACopyifan To: JESSEE MEJIA Reviewed by Maya Barron MD on 12/29; All test results are final unless otherwise noted. TROPONIN T [facility] Lab Ordered by Maya Barron MD on 12/28/2020 Collected: 12/28/2020 Reported: 12/28/2020 04:05 TROPONIN T <0.01 NG/ML (0.00 - 0.10) None Note: TROPONIN T0.1 ng/ml Recommended as the clinical threshold value forTroponin T.Responsible Observer: (MLE) Reviewed by Maya Barron MD on 12/29; All test results are final unless otherwise noted. Reported Physicians [facility] Lab Ordered by Maya Barron MD on 12/28/2020 Collected: 12/28/2020 Reported: 12/28/2020 04:05 Reported Physicians See Note None Note: Reported Physicians:Ordering: TURR IN, RICCARDOAttending: TURRIN, RICCARDOConsulting: Rubén BARRON To: TURRIN, RICCARDOCopy To: TURNIKOLAI, JESSEE Reviewed by Maya Barron MD on 12/29; All test results are final unless otherwise noted. Cepheid SARS/FLU/RSV RT-PCR [facility] Lab Ordered by Maya Barron MD [...] by FDA under an EUA for [facility] [id number]-gtw CoV RNA Resp Ql ТАТЬЯНА+ugzehXAKZFEVNPVP-MSI-0 NOT [id number]-ONH-3 NOT [id number] RNA Resp Ql ТАТЬЯНА+probeLNNFLUAInfluenza A Not Det [id number] A Not Carrpcip09566-4DLTNE RNA Resp Ql ТАТЬЯНА+probeLNNINBInfluenza B Not [id number] B Not Qouebefc36478- 2RSV RNA Resp Ql ТАТЬЯНА+probeLNNRSVRSV Not [id number] Not Detected Reviewed by Maya Barron MD on 12/25; All test results are final unless otherwise noted. Reported Physicians [facility] Lab Ordered by Maya Barron MD on 12/23/2020 Collected: 12/23/2020 Reported: 12/23/2020 13:41 Reported Physicians See Note None Note: Reported Physicians:Ordering: Aj Ferreiraending: Jos Rivas To: Maya Barron Reviewed by Maya Barron MD on 12/25; All test results are final unless otherwise noted. ADD ON MICROSCOPIC [facility] Lab Ordered by Maya Barron MD on 12/23/2020 Collected: 12/23/2020 Reported: 12/23/2020 08:51 ADD ON MICROSCOPIC See Note (0-5) None Note: NOTES OTHER/NOT INTERPRETED Bacteria UrnS Ql Micro MODERATE AMOUNT Bacteria UrnS Ql Micro MODERATE AMOUNT Bacteria UrnS Ql Micro L Bacteria UrnS Ql Micro Bacteria UrnS Ql Micro Bacteria UrnS Ql Micro Bacteria UrnS Ql Micro [id number] Bacteria UrnS Ql Micro Bacteria UrnS Ql [...] are final unless otherwise noted. Reported Physicians [facility] Lab Ordered by Maya Barron MD on 12/23/2020 Collected: 12/23/2020 Reported: 12/23/2020 08:52 Reported Physicians See Note None Note: Reported Physicians:Ordering: Cristino FerreiraAttending: Jos Rivas To: Maya Barron Reviewed by Maya Barron MD on 12/25; All test results are final unless otherwise noted. UA W/ CULTURE IF ABNORMAL [facility] Lab Ordered by Maya Barron MD on 12/23/2020 Collected: 12/23/2020 Reported: 12/23/2020 08:51 Urobilinogen Ur Ql See Note (0.2-1 EU/dl) None Note: 1 EU/dl1 EU/[id number] EU/dlRe sponsible Observer: UROBILINOGEN UROBILINOGEN 300.4500 (C) RBC # Ur Strip NEGATIVE (NEGATIVE) None Note: Responsible Observer: BLOOD BLOOD 300.4652 (C) Prot Ur Ql Strip See Note (NEGATIVE) None Note: [id number] ble Observer: PROTEIN PROTEIN 300.3750 (C) Ketones Ur Ql Strip See Note (NEGATIVE) None Note: [id number] EResponsible Observer: KETONE KETONE 300.3900 (C) Bilirub Ur Ql Strip.auto See Note (NEGATIVE) None Note: [id number] EResponsible Observer: BILIRUBIN BILIRUBIN 300.4550 (C) Glucose Ur Strip.auto-mCnc NEGATIVE (NEGATIVE) None Note: Responsible Observer: GLUCOSE GLUC OSE 300.3850 (C) Appearance Ur See Note (CLEAR) A (Abnormal) Note: TURBIDTURBIDLTURBIDResponsible Obs erver: APPEARANCE APPEARANCE 300.3400 (A) Color Ur See Note None Note: YELLOWYELLOWLYELLOWResponsible Obs erver: COLOR COLOR 300.3330 (A) Leukocyte esterase Ur Ql Strip See Note (NEGATIVE) None Note: [id number]@DO MICR O!!!!A Culture has been added to this specimen per established criteriaResponsible Observer: LEUKOCYTES LEUKOCYTES 300.3576 (C) Nitrite Ur Ql Strip See Note (NEGATIVE) None Note: [id number] EResponsible Observer: NITRITE NITRITE 300.3652 (B) pH [...] are final unless otherwise noted. Urine culture [facility] Lab Ordered by Maya Barron MD [...] are final unless otherwise noted. Reported Physicians [facility] Lab Ordered by Maya Barron MD on 12/23/2020 Collected: 12/23/2020 Reported: 12/24/2020 10:07 Reported Physicians See Note None Note: Reported Physicians:Ordering: Aj Ferreiraending: Jos Rivas To: Maya Barron Reviewed by Maya Barron MD on 12/25; All test results are final unless otherwise noted. MAGNESIUM [facility] Lab Ordered by Maya Barron MD on 12/23/2020 Collected: 12/23/2020 Reported: 12/23/2020 09:11 Magnesium SerPl-mCnc 2.1 MilliGramsPerDeciLiter_[Mass_Concentration_Units] (1.3-2.7) N (Normal) Note: Responsible Observer: Magnesium Ma gnesium 400.3300 (G) NOTES See Note None Note: ADD-ON Reviewed by Maya Barron MD on 12/25; All test results are final unless otherwise noted. Reported Physicians [facility] Lab Ordered by Maya Barron MD on 12/23/2020 Collected: 12/23/2020 Reported: 12/23/2020 09:11 Reported Physicians See Note None Note: Reported Physicians:Ordering: Aj Ferreiraending: Jos Rivas To: Maya Barron Reviewed by Maya Barron MD on 12/25; All test results are final unless otherwise noted. D-DIMER [facility] Lab Ordered by Maya Barron MD [...] are final unless otherwise noted. Reported Physicians [facility] Lab Ordered by Maya Barron MD on 12/23/2020 Collected: 12/23/2020 Reported: 12/23/2020 09:39 Reported Physicians See Note None Note: Reported Physicians:Ordering: Aj Ferreiraending: Jos Rivas To: Maya Barron Reviewed by Maya Barron MD on 12/25; All test results are final unless otherwise noted. CBC W AUTO DIFF [facility] Lab Ordered by Maya Barron MD [...] Auto See Note (0-2) N (Normal) Note: [id number] Ob line server: IG% IG% 100.1375 (B) Hct VFr Bld [...] test results are final unless otherwise noted. [facility] Lab Ordered by Maya Barron [...] are final unless otherwise noted. Reported Physicians [facility] Lab Ordered by Maya Barron MD on 12/23/2020 Collected: 12/23/2020 Reported: 12/23/2020 08:29 Reported Physicians See Note None Note: Reported Physicians:Ordering: Aj Ferreiraending: Jos Rivas To: Maya Barron Reviewed by Maya Barron MD on 12/25; All test results are final unless otherwise noted. TROPONIN [facility] Lab Ordered by Maya Barron MD on 12/23/2020 Collected: 12/23/2020 Reported: 12/23/2020 09:39 Troponin I SerPl-mCnc Less Than 0.015 (0.00-0.09) N (Normal) Note: Less than 0.09 NG/ML Negative 0.10 - 0.77 NG/ML High Risk0.78 NG/ML or Greater PositiveThe WHO defined the cutoff (definition for diagnosis of [place])for this method as 0.78 ng/ml.Responsible Observer: Troponin I Troponin I 600.1101 (G) NOTES See Note None Note: ADD-ON Reviewed by Maya Barron MD on 12/25; All test results are final unless otherwise noted. Reported Physicians [facility] Lab Ordered by Maya Barron MD on 12/23/2020 Collected: 12/23/2020 Reported: 12/23/2020 09:39 Reported Physicians See Note None Note: Reported Physicians:Ordering: Cristino FerreiraAttending: Jos Rivas To: Maya Barron Reviewed by Maya Barron MD on 12/25; All test results are final unless otherwise noted. LIPASE SERUM [facility] Lab Ordered by Maya Barron MD on 12/16/2020 Collected: 12/16/2020 Reported: 12/16/2020 16:29 LIPASE 27 U/L (13 - 60) None Note: Responsible Observer: (DW) Reviewed by Maya Barron MD on 12/18; All test results are final unless otherwise noted. Reported Physicians [facility] Lab Ordered by Maya Barron MD on 12/16/2020 Collected: 12/16/2020 Reported: 12/16/2020 16:29 Reported Physicians See Note None Note: Reported Physicians:Ordering: VENUS ALONSOAttending: ALLYN PAPPASConsulting: Ruébn BARRON To: Miguel Gonsalez To: ALLYN PAPPAS Reviewed by Maya Barron MD on 12/18; All test results are final unless otherwise noted. TROPONIN T [facility] Lab Ordered by Maya Barron MD on 12/16/2020 Collected: 12/16/2020 Reported: 12/16/2020 16:30 TROPONIN T <0.01 NG/ML (0.00 - 0.10) None Note: TROPONIN T0.1 ng/ml Recommended as the clinical threshold value forTroponin T.Responsible Observer: (DW) Reviewed by Maya Barron MD on 12/18; All test results are final unless otherwise noted. Reported Physicians [facility] Lab Ordered by Maya Barron MD on 12/16/2020 Collected: 12/16/2020 Reported: 12/16/2020 16:30 Reported Physicians See Note None Note: Reported Physicians:Ordering: Sunshine ALONSOending: ALLYN PAPPASConsulting: Rubén BARRON To: Miguel Gonsalez To: ALLYN PAPPAS Reviewed by Maya Barron MD on 12/18; All test results are final unless otherwise noted. TSH HIGHLY SENSITIVE [facility] Lab Ordered by Maya Barron MD on 12/16/2020 Collected: 12/16/2020 Reported: 12/16/2020 17:28 TSH 1.41 uIU/mL (0.47 - 5.01) None Note: Responsible Observer: (ABIOLA) Reviewed by Maya Barron MD on 12/18; All test results are final unless otherwise noted. Reported Physicians [facility] Lab Ordered by Maya Barron MD on 12/16/2020 Collected: 12/16/2020 Reported: 12/16/2020 17:28 Reported Physicians See Note None Note: Reported Physicians:Ordering: Sunshine ALONSOending: ALLYN PAPPASConsulting: Rubén BARRON To: Miguel Gonsalez To: ALLYN PAPPAS Reviewed by Maya Barron MD on 12/18; All test results are final unless otherwise noted. PT/PTT [facility] Lab Ordered by Maya Barron [...] Thrombosis, Pulmonary Embolus, Tissue heart valves, Acute [place] Atrial Fibrillation, Valvular heart disease and recurrent Systemic Embolism. - International Normalized Ratio (INR): 2.5 - 3.5 for Mechanical Prosthetic valve.Responsible Observer: (ABIOLA) Reviewed by Maya Barron MD on 12/18; All test results are final unless otherwise noted. Reported Physicians [facility] Lab Ordered by Maya Barron MD on 12/16/2020 Collected: 12/16/2020 Reported: 12/16/2020 16:30 Reported Physicians See Note None Note: Reported Physicians:Ordering: Sunshine ALONSOending: ALLYN PAPPASConsulting: Rubén BARRON To: Miguel Gonsalez To: ALLYN PAPPAS Reviewed by Maya Barron MD on 12/18; All test results are final unless otherwise noted. CBC W/AUTOMATED DIFF [facility] Lab Ordered by Maya Barron [...] are final unless otherwise noted. Reported Physicians [facility] Lab Ordered by Maya Barron MD on 12/16/2020 Collected: 12/16/2020 Reported: 12/16/2020 16:00 Reported Physicians See Note None Note: Reported Physicians:Ordering: Sunshine ALONSOending: ALLYN PAPPASConsulting: Rubén BARRON To: Miguel Gonsalez To: ALLYN PAPPAS Reviewed by Maya Barron MD on 12/18; All test results are final unless otherwise noted. COMPREHENSIVE METABOLIC PANEL [facility] Ordered by Maya Barron [...] are final unless otherwise noted. Reported Physicians [facility] Lab Ordered by Maya Barron MD on 12/16/2020 Collected: 12/16/2020 Reported: 12/16/2020 16:30 Reported Physicians See Note None Note: Reported Physicians:Ordering: Sunshine ALONSOending: ALLYN PAPPASConsulting: Rubén BARRON To: Miguel Gonsalez To: ALLYN PAPPAS Reviewed by Maya Barron MD on 12/18; All test results are final unless otherwise noted. CBC W AUTO DIFF [facility] Lab Ordered by Maya Barron MD [...] Auto See Note (0-2) N (Normal) Note: [id number] Ob line server: IG% IG% 100.1375 (B) Hct VFr Bld [...] results are final unless otherwise noted. PT/PTT [facility] Lab Ordered by Maya Barrno MD on 12/13/2020 Collected: 12/13/2020 Reported: 12/13/2020 [...] test results are final unless otherwise noted. [facility] Lab Ordered by Maya Barron [...] are final unless otherwise noted. Reported Physicians [facility] Lab Ordered by Maya Barron MD on 12/13/2020 Collected: 12/13/2020 Reported: 12/13/2020 19:02 Reported Physicians See Note None Note: Reported Physicians:Ordering: Concihs Omerending: Kevin Orozco To: Maya Barron Reviewed by Maya Barron MD on 12/15; All test results are final unless otherwise noted. TSH [facility] Lab Ordered by Maya Barron MD on 12/13/2020 Collected: 12/13/2020 Reported: 12/13/2020 19:02 TSH SerPl DL<=0.005 mIU/L-aCnc 1.02 MicroInternationalUnitsPerMilliLiter_[Arbitrary_Con (0.35-5. 50) N (Normal) Note: Responsible Observer: TSH TSH 600 .7055 (D) Reviewed by Maya Barron MD on 12/15; All test results are final unless otherwise noted. Reported Physicians [facility] Lab Ordered by Maya Barron MD on 12/13/2020 Collected: 12/13/2020 Reported: 12/13/2020 19:02 Reported Physicians See Note None Note: Reported Physicians:Ordering: Edgar Omerttending: Kevin Orozco To: Maya Barron Reviewed by Maya Barron MD on 12/15; All test results are final unless otherwise noted. TROPONIN [facility] Lab Ordered by Maya Barron MD on 12/13/2020 Collected: 12/13/2020 Reported: 12/13/2020 19:02 Troponin I SerPl-mCnc Less Than 0.015 (0.00-0.09) N (Normal) Note: Less than 0.09 NG/ML Negative 0.10 - 0.77 NG/ML High Risk0.78 NG/ML or Greater PositiveThe WHO defined the cutoff (definition for diagnosis of [place])for this method as 0.78 ng/ml.Responsible Observer: Troponin I Troponin I 600.1101 (G) Reviewed by Maya Barron MD on 12/15; All test results are final unless otherwise noted. Reported Physicians [facility] Lab Ordered by Maya Barron MD on 12/13/2020 Collected: 12/13/2020 Reported: 12/13/2020 19:02 Reported Physicians See Note None Note: Reported Physicians:Ordering: Edgar Omerttending: Pir ErnestoetCopyifan To: Maya Barron Reviewed by Maya Barron MD on 12/15; All test results are final unless otherwise noted. UA W/ CULTURE IF ABNORMAL [facility] Lab Ordered by Maya Barron MD on 12/13/2020 Collected: 12/13/2020 Reported: 12/13/2020 18:32 Urobilinogen Ur Ql See Note (0.2-1 EU/dl) None Note: 0.2 EU/dl0.2 EU/[id number] E U/dlResponsible Observer: UROBILINOGEN UROBILINOGEN 300.4500 (C) RBC # Ur Strip NEGATIVE (NEGATIVE) None Note: Responsible Observer: BLOOD BLOOD 300.4652 (C) Prot Ur Ql Strip See Note (NEGATIVE) None Note: [id number] EResponsible Observer: PROTEIN PROTEIN 300.3750 (C) Ketones Ur Ql Strip See Note (NEGATIVE) None Note: [id number] EResponsible Observer: KETONE KETONE 300.3900 (C) Bilirub Ur Ql Strip.auto See Note (NEGATIVE) None Note: [id number] EResponsible Observer: BILIRUBIN BILIRUBIN 300.4550 (C) Glucose Ur Strip.auto-mCnc NEGATIVE (NEGATIVE) None Note: Responsible Observer: GLUCOSE GLUC OSE 300.3850 (C) Appearance Ur See Note (CLEAR) None Note: CLEARCLEARLCLEARResponsible Observ er: APPEARANCE APPEARANCE 300.3400 (A) Color Ur See Note None Note: YELLOWYELLOWLYELLOWResponsible Obs erver: COLOR COLOR 300.3330 (A) Leukocyte esterase Ur Ql Strip See Note (NEGATIVE) None Note: [id number]@DO MICR O!!!!A Culture has been added to this specimen per established criteriaResponsible Observer: LEUKOCYTES LEUKOCYTES 300.3576 (C) Nitrite Ur Ql Strip See Note (NEGATIVE) None Note: [id number] EResponsible Observer: NITRITE NITRITE 300.3652 (B) pH [...] are final unless otherwise noted. Urine culture [facility] Lab Ordered by Maya Barron MD on 12/13/2020 Collected: 12/13/2020 Reported: 12/14/2020 13:24 Bacteria Ur Cult See Note None Note: NGNo growth.L1NG NOTES See Note None Note: @12/13/20 1832: Urine culture adde d. RFLXG = CULT.ADD. Reviewed by Maya Barron MD on 12/15; All test results are final unless otherwise noted. Reported Physicians [facility] Lab Ordered by Maya Barron MD on 12/13/2020 Collected: 12/13/2020 Reported: 12/14/2020 13:24 Reported Physicians See Note None Note: Reported Physicians:Ordering: Conchis Omerending: Kevin Orozco To: Maya Barron Reviewed by Maya Barron MD on 12/15; All test results are final unless otherwise noted. ADD ON MICROSCOPIC [facility] Lab Ordered by Maya Barron MD on 12/13/2020 Collected: 12/13/2020 Reported: 12/13/2020 18:32 ADD ON MICROSCOPIC See Note (0-5) None Note: NOTES OTHER/NOT INTERPRETED Bacteria UrnS Ql Micro MODERATE AMOUNT Bacteria UrnS Ql Micro MODERATE AMOUNT Bacteria UrnS Ql Micro L Bacteria UrnS Ql Micro Bacteria UrnS Ql Micro Bacteria UrnS Ql Micro Bacteria UrnS Ql Micro [id number] Bacteria UrnS Ql Micro Bacteria UrnS Ql [...] are final unless otherwise noted. Reported Physicians [facility] Ordered by Maya Barron MD on 12/13/2020 Collected: 12/13/2020 Reported: 12/13/2020 18:33 Reported Physicians See Note None Note: Reported Physicians:Ordering: Conchis Omerending: Kevin Orozco To: Maya Barron Reviewed by Maya Barron MD on 12/15; All test results are final unless otherwise noted. TROPONIN T [facility] Lab Ordered by Maya Barron MD on 12/09/2020 Collected: 12/09/2020 Reported: 12/09/2020 01:32 TROPONIN T <0.01 NG/ML (0.00 - 0.10) None Note: TROPONIN T0.1 ng/ml Recommended as the clinical threshold value forTroponin T.Responsible Observer: (AB) Reviewed by Maya Barron MD on 12/12; All test results are final unless otherwise noted. Reported Physicians [facility] Lab Ordered by Maya Barron MD on 12/09/2020 Collected: 12/09/2020 Reported: 12/09/2020 01:32 Reported Physicians See Note None Note: Reported Physicians:Ordering: MARQUISE TOMLINSON CAttending: MARQUISE SOTOConsulting: Rubén BARRON To: Clare SOTO To: MARQUISE SOTO Reviewed by Maya Barron MD on 12/12; All test results are final unless otherwise noted. TROPONIN T [facility] Ordered by Maya Barron MD on 12/08/2020 Collected: 12/08/2020 Reported: 12/08/2020 22:36 TROPONIN T <0.01 NG/ML (0.00 - 0.10) None Note: TROPONIN T0.1 ng/ml Recommended as the clinical threshold value forTroponin T.Responsible Observer: (AB) Reviewed by Maya Barron MD on 12/12; All test results are final unless otherwise noted. Reported Physicians [facility] Ordered by Maya Barron MD on 12/08/2020 Collected: 12/08/2020 Reported: 12/08/2020 22:36 Reported Physicians See Note None Note: Reported Physicians:Ordering: MARQUISE TOMLINSON CAttending: MARQUISE SOTOConsulting: Rubén BARRON To: MARQUISE SOTOCopyifan To: MARQUISE SOTO Reviewed by Maya Barron MD on 12/12; All test results are final unless otherwise noted. COMPREHENSIVE METABOLIC PANEL [facility] Ordered by Maya Barron [...] are final unless otherwise noted. Reported Physicians [facility] Ordered by Maya Barron MD on 12/08/2020 Collected: 12/08/2020 Reported: 12/08/2020 22:36 Reported Physicians See Note None Note: Reported Physicians:Ordering: MARQUISE TOMLINSON CAttending: MARQUISE SOTOConsulting: Rubén BARRON To: Clare SOTO To: MARQUISE SOTO Reviewed by Maya Barron MD on 12/12; All test results are final unless otherwise noted. LIPASE SERUM [facility] Lab Ordered by Maya Barron MD on 12/08/2020 Collected: 12/08/2020 Reported: 12/08/2020 22:32 LIPASE 33 U/L (13 - 60) None Note: Responsible Observer: (AB) Reviewed by Maya Barron MD on 12/12; All test results are final unless otherwise noted. Reported Physicians [facility] Ordered by Maya Barron MD on 12/08/2020 Collected: 12/08/2020 Reported: 12/08/2020 22:32 Reported Physicians See Note None Note: Reported Physicians:Ordering: MARQUISE TOMLINSON CAttending: MARQUISE SOTOConsulting: Rubén BARRON To: Clare SOTO To: MARQUISE SOTO Reviewed by Maya Barron MD on 12/12; All test results are final unless otherwise noted. TROPONIN [facility] Lab Ordered by Maya Barron MD on 12/01/2020 Collected: 12/01/2020 Reported: 12/01/2020 18:18 Troponin I SerPl-mCnc Less Than 0.015 (0.00-0.09) N (Normal) Note: Less than 0.09 NG/ML Negative 0.10 - 0.77 NG/ML High Risk0.78 NG/ML or Greater PositiveThe WHO defined the cutoff (definition for diagnosis of [place])for this method as 0.78 ng/ml.Responsible Observer: Troponin I Troponin I 600.1101 (G) Reviewed by Maya Barron MD on 12/04; All test results are final unless otherwise noted. Reported Physicians [facility] Ordered by Maya Barron MD on 12/01/2020 Collected: 12/01/2020 Reported: 12/01/2020 18:19 Reported Physicians See Note None Note: Reported Physicians:Ordering: Choco KaurAttending: Adam Pardo To: Maya Barron Reviewed by Maya Barron MD on 12/04; All test results are final unless otherwise noted. CBC W AUTO DIFF [facility] Ordered by Maya Barron MD [...] Auto See Note (0-2) N (Normal) Note: [id number] Ob line server: IG% IG% 100.1375 (B) Hct VFr Bld [...] test results are final unless otherwise noted. [facility] Ordered by Maya Barron MD on 12/01/2020 Collected: 12/01/2020 Reported: 12/01/2020 18:18 ALT SerPl w P-5'-P-cCnc 9 enzyme_unit_per_liter (10-49) L (Low) Note: Responsible Observer: SGPT/ALT SGP T/ALT 400.1750 (G) Calcium SerPl-mCnc 8.1 MilliGramsPerDeciLiter_[Mass_Concentration_Units] (8.5-10.1) L (Low) Note: Responsible Observer: Calcium Calc ium 400.2500 (G) Bilirub SerPl-mCnc 0.2 MilliGramsPerDeciLiter_[Mass_Concentration_Units] (0.3-1.2) L (Low) Note: Responsible Observer: T KLELIE Total Bilirubin 400.2600 (G) CO2 SerPl-sCnc 22 [...] results are final unless otherwise noted. D-DIMER [facility] Ordered by Maya Barron MD [...] are final unless otherwise noted. Reported Physicians [facility] Ordered by Maya Barron MD on 12/01/2020 Collected: 12/01/2020 Reported: 12/01/2020 18:19 Reported Physicians See Note None Note: Reported Physicians:Ordering: Sara Kaurending: Adam Pardo To: Maya Barron Reviewed by Maya Barron MD on 12/04; All test results are final unless otherwise noted. Cepheid CT/NG RT-PCR [facility] Ordered by Maya Barron MD [...] may result in failure to detect the targetorganisms.[id number] trach DNA Vag Ql ТАТЬЯНА+probeLNCHLAMNC. trachomatis NOT [id number]. trachomatis NOT [id number] gonorrhoea rRNA Vag Ql ТАТЬЯНА+probeLNNEIGNN.gonorrhoeae NOT [id number].gonorrhoeae NOT DETECTED Reviewed by Maya Barron MD on 11/29; All test results are final unless otherwise noted. Reported Physicians [facility] Ordered by Maya Barron MD on 11/29/2020 Collected: 11/29/2020 Reported: 11/29/2020 07:03 Reported Physicians See Note None Note: Reported Physicians:Ordering: Estela SamuelAttending: Vianey Up To: Maya Barron Reviewed by Maya Barron MD on 11/29; All test results are final unless otherwise noted. AFFIRM [facility] Ordered by Maya Barron MD on 11/29/2020 Collected: 11/29/2020 Reported: 11/30/2020 13:21 Dionna species DNA Probe NOT DETECTED (NOT DETECTED) None Note: THIS TEST WAS PERFORMED AT:[place] [address]BPAGRSCLAUDY ONEILLesponsible Observer: Dionna DNA Dionna species DNA Probe [id number] 913.2350 ([place]) Gardnerella DNA Probe DETECTED (NOT DETECTED) H (High) Note: Increased levels of G. vaginalis m ay not be significantin the absence of signs and symptoms of bacterialvaginosis.Responsible Observer: Gardnerella DNA Gardnerella DNA Probe [id number] 913.2345 ([place]) Trichomonas DNA Probe NOT DETECTED (NOT DETECTED) None Note: Responsible Observer: Trichomonas DNA Trichomonas DNA Probe [id number] 913.2340 ([place]) Reviewed by Maya Barron MD on 12/01; All test results are final unless otherwise noted. Reported Physicians [facility] Ordered by Maya Barron MD on 11/29/2020 Collected: 11/29/2020 Reported: 11/30/2020 13:21 Reported Physicians See Note None Note: Reported Physicians:Ordering: Estela SamuelAttending: Vianey Up To: Maya Barron Reviewed by Maya Barron MD on 12/01; All test results are final unless otherwise noted. ADD ON MICROSCOPIC [facility] Ordered by Maya Barron MD [...] are final unless otherwise noted. Reported Physicians [facility] Ordered by Maya Barron MD on 11/29/2020 Collected: 11/29/2020 Reported: 11/29/2020 04:51 Reported Physicians See Note None Note: Reported Physicians:Ordering: Estela SamuelAttending: Vianey Up To: Maya Barron Reviewed by Maya Barron MD on 11/29; All test results are final unless otherwise noted. UA W/ CULTURE IF ABNORMAL [facility] Ordered by Maya Barron MD on 11/29/2020 Collected: 11/29/2020 Reported: 11/29/2020 04:49 Urobilinogen Ur Ql See Note (0.2-1 EU/dl) None Note: 0.2 EU/dl0.2 EU/gfA86106502377.2 E U/dlResponsible Observer: UROBILINOGEN UROBILINOGEN 300.4500 (C) RBC # Ur Strip NEGATIVE (NEGATIVE) None Note: Responsible Observer: BLOOD BLOOD 300.4652 (C) Prot Ur Ql Strip See Note (NEGATIVE) None Note: [id number] EResponsible Observer: PROTEIN PROTEIN 300.3750 (C) Ketones Ur Ql Strip See Note (NEGATIVE) None Note: [id number] EResponsible Observer: KETONE KETONE 300.3900 (C) Bilirub Ur Ql Strip.auto See Note (NEGATIVE) None Note: [id number] EResponsible Observer: BILIRUBIN BILIRUBIN 300.4550 (C) Glucose Ur Strip.auto-mCnc NEGATIVE (NEGATIVE) None Note: Responsible Observer: GLUCOSE GLUC OSE 300.3850 (C) Appearance Ur See Note (CLEAR) None Note: CLEARCLEARLCLEARResponsible Observ er: APPEARANCE APPEARANCE 300.3400 (A) Color Ur See Note None Note: YELLOWYELLOWLYELLOWResponsible Obs erver: COLOR COLOR 300.3330 (A) Leukocyte esterase Ur Ql Strip See Note (NEGATIVE) None Note: [id number]@DO MICR O!!!!A Culture has been added to this specimen per established criteriaResponsible Observer: LEUKOCYTES LEUKOCYTES 300.3576 (C) Nitrite Ur Ql Strip See Note (NEGATIVE) None Note: [id number] EResponsible Observer: NITRITE NITRITE 300.3652 (B) pH [...] are final unless otherwise noted. Urine culture [facility] Ordered by Maya Barron MD on 11/29/2020 Collected: 11/29/2020 Reported: 11/30/2020 07:23 Bacteria Ur Cult See Note None Note: NGNo growth.L1NG NOTES See Note None Note: @11/29/20 0450: Urine culture adde d. RFLXG = CULT.ADD. Reviewed by Maya Barron MD on 12/01; All test results are final unless otherwise noted. Reported Physicians [facility] Ordered by Maya Barron MD on 11/29/2020 Collected: 11/29/2020 Reported: 11/30/2020 07:23 Reported Physicians See Note None Note: Reported Physicians:Ordering: Gideon Samuelending: Vianey Up To: Maya Barron Reviewed by Maya Barron MD on 12/01; All test results are final unless otherwise noted. TROPONIN [facility] Ordered by Maya Barron MD on 11/20/2020 Collected: 11/20/2020 Reported: 11/20/2020 20:04 Troponin I SerPl-mCnc Less Than 0.015 (0.00-0.09) N (Normal) Note: Less than 0.09 NG/ML Negative 0.10 - 0.77 NG/ML High Risk0.78 NG/ML or Greater PositiveThe WHO defined the cutoff (definition for diagnosis of [place])for this method as 0.78 ng/ml.Responsible Observer: Troponin I Troponin I 600.1101 (G) Reviewed by Maya Barron MD on 11/22; All test results are final unless otherwise noted. Reported Physicians [facility] Ordered by Maya Barron MD on 11/20/2020 Collected: 11/20/2020 Reported: 11/20/2020 20:05 Reported Physicians See Note None Note: Reported Physicians:Ordering: Les Vanegas AAttending: Fady Raza To: Maya Barron Reviewed by Maya Barron MD on 11/22; All test results are final unless otherwise noted. Cepheid SARS/FLU/RSV RT-PCR [facility] Ordered by Maya Barron MD [...] by FDA under an EUA for use [facility] centerAbcelluteessentia health dtsalvnolswt72089-1PLGL-tez CoV RNA Resp Ql ТАТЬЯНА+szwolQMHIASFPADE-YKP-5 NOT [id number]-MEX-0 NOT ZAFEYMGL41269-2MNRVT RNA Resp Ql ТАТЬЯНА+probeLNNFLUAInfluenza A Not Det [id number] A Not Vynyctml26294-0MWJSP RNA Resp Ql ТАТЬЯНА+probeLNNINBInfluenza B Not [id number] B Not Lbarhfkb35708- 2RSV RNA Resp Ql ТАТЬЯНА+probeLNNRSVRSV Not [id number] Not Detected Reviewed by Maya Barron MD on 11/20; All test results are final unless otherwise noted. Reported Physicians [facility] Ordered by Maya Barron MD on 11/18/2020 Collected: 11/18/2020 Reported: 11/18/2020 23:58 Reported Physicians See Note None Note: Reported Physicians:Ordering: Aj Snowending: Jos Castellanos To: Maya Barron Reviewed by Maya Barron MD on 11/20; All test results are final unless otherwise noted. URINE DRUG SCREEN -([facility]) [facility] Ordered by Maya Barron MD on 11/17/2020 Collected: 11/17/2020 Reported: 11/17/2020 14:19 PCP Ur Ql Scn>25 ng/mL See Note (Cutoff 25) None Note: [id number] E@Reenter manual test result: NEGATIVE@by Claudia Tello at 11/17/20 1414.Responsible Observer: PCP Urine Phencyclidine (PCP) Scrn 400.5120 (A) THC Ur Ql Scn>50 ng/mL See Note (Cutoff 50) None Note: [id number] EResponsible Observer: Marijuana (THC) Ur Marijuana (THC) Screen 400.5110 (A) Benzodiaz Ur Ql Scn See Note (Cutoff 150) None Note: [id number] E@Reenter manual test result: NEGATIVE@by Claudia Tello at 11/17/20 1418.Responsible Observer: Benzodiazepines Urine Benzodiazepines Screen 400.5170 (A) Opiates Ur Ql Scn See Note (Cutoff 100) None Note: [id number] E@Reenter manual test result: NEGATIVE@by Claudia Tello at 11/17/201417.Responsible Observer: Opiates Urine Opiates Screen 400.5150 (A) Tricyclics Ur Ql Scn See Note (Cutoff 300) None Note: [id number] E@Reenter manual test result: NEGATIVE@by Claudia Tello at 11/17/20 141.Responsible Observer: TCA Ur Tricyclic Antidepressants 400.5180 (A) Cocaine Ur Ql Scn See Note (Cutoff 150) None Note: [id number] E@Reenter manual test result: NEGATIVE@by Claudia Tello at 11/17/201416.Responsible Observer: Cocaine Urine Cocaine Screen 400.5130 (A) Propoxyph+Nor Ur Ql Scn See Note (Cutoff 300) None Note: [id number] E@Reenter manual test result: NEGATIVE@by Claudia Tello at 11/17/201417.Responsible Observer: Propoxyphene Urine Propoxyphene Screen 400.5220 (A) Methadone Ur Ql Scn See Note (Cutoff 200) None Note: [id number] E@Reenter manual test result: NEGATIVE@by Claudia Tello at 11/17/201417.Responsible Observer: Methadone Urine Methadone Screen 400.5190 (A) Methamphet Ur Ql Scn See Note (Cutoff 500) None Note: [id number] E@Reenter manual test result: NEGATIVE@by Claudia Tello at 11/17/20 141.Responsible Observer: Methamphetamine Urine Methamphetamines Screen 400.5140 (A) oxyCODONE Ur Ql Scn See Note (Cutoff 100) None Note: [id number] E@Reenter manual test result: NEGATIVE@by Claudia Tello at 11/17/20 141.Responsible Observer: Oxycodone Urine Oxycodone Screen 400.5210 (A) Buprenorphine Ur Ql See Note (Cutoff 10) None Note: [id number] E@Reenter manual test result: NEGATIVE@by Claudia Tello at 11/17/20 1419.Responsible Observer: Buprenorphine Urine Buprenorphine Screen 400.5230 (A) Amphetamines Ur Ql Scn>500 ng/mL See Note (Cutoff 500) None Note: [id number] E@Reenter manual test result: NEGATIVE@by Claudia Tello at 11/17/20 1418.Responsible Observer: Amphetamines Urine Amphetamines Screen 400.5160 (A) Barbiturates Ur Ql Scn>200 ng/mL See Note (Cutoff 200) None Note: [id number] E@Reenter manual test result: NEGATIVE@by Claudia Tello at 11/17/20 1418.Responsible Observer: Barbiturates Urine Barbiturates 400.5200 (A) Reviewed by Maya Barron MD on 11/20; All test results are final unless otherwise noted. FREE T4 (LAB) [facility] Ordered by Maya Barron MD on 11/17/2020 Collected: 11/17/2020 Reported: 11/17/2020 14:34 T4 Free SerPl-mCnc 0.78 NanoGramsPerDeciLiter_[Mass_Concentration_Units] (0.89-1.76) L (Low) Note: Responsible Observer: FREE T4 Free Thyroxine 600.7005 (D) Reviewed by Maya Barron MD on 11/20; All test results are final unless otherwise noted. Reported Physicians [facility] Ordered by Maya Barron MD on 11/17/2020 Collected: 11/17/2020 Reported: 11/17/2020 14:34 Reported Physicians See Note None Note: Reported Physicians:Ordering: Maya AlvarengaAttending: Maya Barron Reviewed by Maya Barron MD on 11/20; All test results are final unless otherwise noted. TSH [facility] Ordered by Maya Barron MD on 11/17/2020 Collected: 11/17/2020 Reported: 11/17/2020 14:34 TSH SerPl DL<=0.005 mIU/L-aCnc 1.38 MicroInternationalUnitsPerMilliLiter_[Arbitrary_Con (0.35-5. 50) N (Normal) Note: Responsible Observer: TSH TSH 600 .7055 (D) Reviewed by Maya Barron MD on 11/20; All test results are final unless otherwise noted. Reported Physicians [facility] Ordered by Maya Barron MD on 11/17/2020 Collected: 11/17/2020 Reported: 11/17/2020 14:34 Reported Physicians See Note None Note: Reported Physicians:Ordering: Maya AlvarengaAttending: Maya Barron Reviewed by Maya Barron MD on 11/20; All test results are final unless otherwise noted. IRON [facility] Ordered by Maya Barron MD on 11/17/2020 Collected: 11/17/2020 Reported: 11/17/2020 14:34 Iron SerPl-mCnc 39 (50-170) L (Low) Note: Iron values may be falsely elevate d in serum samples frompatients treated with anticoagulants (e.g., hemodialysispatients)Responsible Observer: Iron Level Iron Level 400.9002 (A) Reviewed by Maya Barron MD on 11/20; All test results are final unless otherwise noted. Reported Physicians [facility] Ordered by Maya Barron MD on 11/17/2020 Collected: 11/17/2020 Reported: 11/17/2020 14:34 Reported Physicians See Note None Note: Reported Physicians:Ordering: Maya AlvarengaAttending: Maya Barron Reviewed by Maya Barron MD on 11/20; All test results are final unless otherwise noted. CBC W AUTO DIFF [facility] Ordered by Maya Barron MD [...] Auto See Note (0-2) N (Normal) Note: [id number] Ob line server: IG% IG% 100.1375 (B) Hct VFr Bld [...] results are final unless otherwise noted. HA1C [facility] Ordered by Maya Barron MD [...] blood glucose control.* High risk of developing intermediate project manager complications such asretinopathy, nephropathy, neuropathy, cardiopathy, etc. [...] test results are final unless otherwise noted. [facility] Ordered by Maya Barron [...] final unless otherwise noted. Vitamin D 25-OH [facility] Ordered by Maya Barron MD [...] VIT D, (D2,D3), LC/MS/MS is recommended: ordercode 95888 (patients >2yrs).See Note 1Note 1For additional information, please refer tohttp://education.PWA.Boxever/faq/TZR557(This link is being provided for informational/educational purposes only.)THIS TEST WAS PERFORMED AT:[employer] [address]CLAUDY ONEILLesponsible Observer: Vitamin D 25-OH Vitamin D 25-Hydroxy [id number] 919.1813 ([place]) Reviewed by Maya Barron MD on 11/20; All test results are final unless otherwise noted. Reported Physicians [facility] Ordered by Maya Barron MD on 11/17/2020 Collected: 11/17/2020 Reported: 11/18/2020 08:17 Reported Physicians See Note None Note: Reported Physicians:Ordering: Maya AlvarengaAttending: Maya Barron Reviewed by Maya Barron MD on 11/20; All test results are final unless otherwise noted. TROPONIN [facility] Ordered by Maya Barron MD on 10/23/2020 Collected: 10/23/2020 Reported: 10/23/2020 01:03 Troponin I SerPl-mCnc Less Than 0.015 (0.00-0.09) N (Normal) Note: Less than 0.09 NG/ML Negative 0.10 - 0.77 NG/ML High Risk0.78 NG/ML or Greater PositiveThe WHO defined the cutoff (definition for diagnosis of [place])for this method as 0.78 ng/ml.Responsible Observer: Troponin I Troponin I 600.1101 (G) Reviewed by Maya Barron MD on 10/23; All test results are final unless otherwise noted. Reported Physicians [facility] Ordered by Maya Barron MD on 10/23/2020 Collected: 10/23/2020 Reported: 10/23/2020 01:03 Reported Physicians See Note None Note: Reported Physicians:Ordering: Yoli NapolesAttending: Charles Silva To: Maya Barron Reviewed by Maya Barron MD on 10/23; All test results are final unless otherwise noted. CBC W AUTO DIFF [facility] Ordered by Maya Barron MD [...] Auto See Note (0-2) N (Normal) Note: [id number] Ob line server: IG% IG% 100.1375 (B) Hct VFr Bld [...] test results are final unless otherwise noted. [facility] Ordered by Maya Barron [...] results are final unless otherwise noted. D-DIMER [facility] Ordered by Maya Barron MD [...] are final unless otherwise noted. Reported Physicians [facility] Ordered by Maya Barron MD on 10/23/2020 Collected: 10/23/2020 Reported: 10/23/2020 01:22 Reported Physicians See Note None Note: Reported Physicians:Ordering: Yoli NapolesAttending: Charles Silva To: Maya Barron Reviewed by Maya Barron MD on 10/23; All test results are final unless otherwise noted. BHCG Quantitative [facility] Ordered by Maya Barron MD on 10/23/2020 Collected: 10/23/2020 Reported: 10/23/2020 01:21 B-HCG SerPl-aCnc 11628 MilliInternationalUnitsPerMilliLiter_[Arbitrary_Con (0-10) H (High) Note: @Instrument will [...] are final unless otherwise noted. Reported Physicians [facility] Ordered by Maya Barron MD on 10/23/2020 Collected: 10/23/2020 Reported: 10/23/2020 01:21 Reported Physicians See Note None Note: Reported Physicians:Ordering: Yoli NapolesAttending: Charles Silva To: Maya Barron Reviewed by Maya Barron MD on 10/23; All test results are final unless otherwise noted. FREE T4 (LAB) [facility] Ordered by Maya Barron MD on 10/21/2020 Collected: 10/21/2020 Reported: 10/21/2020 15:17 T4 Free SerPl-mCnc 0.97 NanoGramsPerDeciLiter_[Mass_Concentration_Units] (0.89-1.76) N (Normal) Note: Responsible Observer: FREE T4 Free Thyroxine 600.7005 (D) Reviewed by Maya Barron MD on 10/23; All test results are final unless otherwise noted. Reported Physicians [facility] Ordered by Maya Barron MD on 10/21/2020 Collected: 10/21/2020 Reported: 10/21/2020 15:17 Reported Physicians See Note None Note: Reported Physicians:Ordering: Choco KaurAttending: Adam Pardo To: Maya Barron Reviewed by Maya Barron MD on 10/23; All test results are final unless otherwise noted. TSH [facility] Ordered by Maya Barron MD on 10/21/2020 Collected: 10/21/2020 Reported: 10/21/2020 15:17 TSH SerPl DL<=0.005 mIU/L-aCnc 1.40 MicroInternationalUnitsPerMilliLiter_[Arbitrary_Con (0.35-5. 50) N (Normal) Note: Responsible Observer: TSH TSH 600 .7055 (D) Reviewed by Maya Barron MD on 10/23; All test results are final unless otherwise noted. Reported Physicians [facility] Ordered by Maya Barron MD on 10/21/2020 Collected: 10/21/2020 Reported: 10/21/2020 15:17 Reported Physicians See Note None Note: Reported Physicians:Ordering: Sara Kaurending: Adam Pardo To: Maya Barron Reviewed by Maya Barron MD on 10/23; All test results are final unless otherwise noted. UA W/ CULTURE IF ABNORMAL [facility] Ordered by Maay Barron MD on 10/19/2020 Collected: 10/19/2020 Reported: 10/19/2020 16:31 Urobilinogen Ur Ql See Note (0.2-1 EU/dl) None Note: 0.2 EU/dl0.2 EU/[id number] E U/dlResponsible Observer: UROBILINOGEN UROBILINOGEN 300.4500 (C) RBC # Ur Strip NEGATIVE (NEGATIVE) None Note: Responsible Observer: BLOOD BLOOD 300.4652 (C) Prot Ur Ql Strip See Note (NEGATIVE) None Note: [id number] EResponsible Observer: PROTEIN PROTEIN 300.3750 (C) Ketones Ur Ql Strip See Note (NEGATIVE) None Note: [id number] EResponsible Observer: KETONE KETONE 300.3900 (C) Bilirub Ur Ql Strip.auto See Note (NEGATIVE) None Note: [id number] EResponsible Observer: BILIRUBIN BILIRUBIN 300.4550 (C) Glucose Ur Strip.auto-mCnc 100 mg/dl (NEGATIVE) None Note: Responsible Observer: GLUCOSE GLUC OSE 300.3850 (C) Appearance Ur See Note (CLEAR) None Note: CLEARCLEARLCLEARResponsible Observ er: APPEARANCE APPEARANCE 300.3400 (A) Color Ur See Note None Note: YELLOWYELLOWLYELLOWResponsible Obs erver: COLOR COLOR 300.3330 (A) Leukocyte esterase Ur Ql Strip See Note (NEGATIVE) None Note: [id number] EResponsible Observer: LEUKOCYTES LEUKOCYTES 300.3576 (C) Nitrite Ur Ql Strip See Note (NEGATIVE) None Note: [id number] EResponsible Observer: NITRITE NITRITE 300.3652 (B) pH [...] are final unless otherwise noted. Reported Physicians [facility] Ordered by Maya Barron MD on 10/19/2020 Collected: 10/19/2020 Reported: 10/19/2020 16:31 Reported Physicians See Note None Note: Reported Physicians:Ordering: Les Vanegas AAttending: Fady Raza To: Maya Barron Reviewed by Maya Barron MD on 10/20; All test results are final unless otherwise noted. URINE DRUG SCREEN -([facility]) [facility] Ordered by Maya Barron MD on 10/19/2020 Collected: 10/19/2020 Reported: 10/19/2020 16:40 PCP Ur Ql Scn>25 ng/mL See Note (Cutoff 25) None Note: [id number] E@Reenter manual test result: NEGATIVE@by Jia Lentz at 10/19/20 1639.Responsible Observer: PCP Urine Phencyclidine (PCP) Scrn 400.5120 (A) THC Ur Ql Scn>50 ng/mL See Note (Cutoff 50) None Note: [id number] EResponsible Observer: Marijuana (THC) Ur Marijuana (THC) Screen 400.5110 (A) Benzodiaz Ur Ql Scn See Note (Cutoff 150) None Note: [id number] E@Reenter manual test result: NEGATIVE@by Jia Lentz at 10/19/20 1640.Responsible Observer: Benzodiazepines Urine Benzodiazepines Screen 400.5170 (A) Opiates Ur Ql Scn See Note (Cutoff 100) None Note: [id number] E@Reenter manual test result: NEGATIVE@by Jia Lentz at 10/19/20 1640.Responsible Observer: Opiates Urine Opiates Screen 400.5150 (A) Tricyclics Ur Ql Scn See Note (Cutoff 300) None Note: [id number] E@Reenter manual test result: NEGATIVE@by Jia Lentz at 10/19/20 1640.Responsible Observer: TCA Ur Tricyclic Antidepressants 400.5180 (A) Cocaine Ur Ql Scn See Note (Cutoff 150) None Note: [id number] E@Reenter manual test result: NEGATIVE@by Jia Lentz at 10/19/20 1640.Responsible Observer: Cocaine Urine Cocaine Screen 400.5130 (A) Propoxyph+Nor Ur Ql Scn See Note (Cutoff 300) None Note: [id number] E@Reenter manual test result: NEGATIVE@by Jia Lentz at 10/19/20 1640.Responsible Observer: Propoxyphene Urine Propoxyphene Screen 400.5220 (A) Methadone Ur Ql Scn See Note (Cutoff 200) None Note: [id number] E@Reenter manual test result: NEGATIVE@by Jia Lentz at 10/19/20 1640.Responsible Observer: Methadone Urine Methadone Screen 400.5190 (A) Methamphet Ur Ql Scn See Note (Cutoff 500) None Note: [id number] E@Reenter manual test result: NEGATIVE@by Jia Lentz at 10/19/20 1640.Responsible Observer: Methamphetamine Urine Methamphetamines Screen 400.5140 (A) oxyCODONE Ur Ql Scn See Note (Cutoff 100) None Note: [id number] E@Reenter manual test result: NEGATIVE@by Jia Lentz at 10/19/20 1640.Responsible Observer: Oxycodone Urine Oxycodone Screen 400.5210 (A) Buprenorphine Ur Ql See Note (Cutoff 10) None Note: [id number] E@Reenter manual test result: NEGATIVE@by Jia Lentz at 10/19/20 1640.Responsible Observer: Buprenorphine Urine Buprenorphine Screen 400.5230 (A) Amphetamines Ur Ql Scn>500 ng/mL See Note (Cutoff 500) None Note: [id number] E@Reenter manual test result: NEGATIVE@by Jia Lentz at 10/19/20 1640.Responsible Observer: Amphetamines Urine Amphetamines Screen 400.5160 (A) Barbiturates Ur Ql Scn>200 ng/mL See Note (Cutoff 200) None Note: [id number] E@Reenter manual test result: NEGATIVE@by Jia Lentz at 10/19/20 1640.Responsible Observer: Barbiturates Urine Barbiturates 400.5200 (A) Reviewed by Maya Barron MD on 10/20; All test results are final unless otherwise noted. Reported Physicians [facility] Ordered by Maya Barron MD on 10/19/2020 Collected: 10/19/2020 Reported: 10/19/2020 16:40 Reported Physicians See Note None Note: Reported Physicians:Ordering: Les Vanegasding: Fady Raza To: Maya Barron Reviewed by Maya Barron MD on 10/20; All test results are final unless otherwise noted. TROPONIN [facility] Ordered by Maya Barron MD on 10/19/2020 Collected: 10/19/2020 Reported: 10/19/2020 16:10 Troponin I SerPl-mCnc Less Than 0.015 (0.00-0.09) N (Normal) Note: Less than 0.09 NG/ML Negative 0.10 - 0.77 NG/ML High Risk0.78 NG/ML or Greater PositiveThe WHO defined the cutoff (definition for diagnosis of [place])for this method as 0.78 ng/ml.Responsible Observer: Troponin I Troponin I 600.1101 (G) Reviewed by Maya Barron MD on 10/20; All test results are final unless otherwise noted. Reported Physicians [facility] Ordered by Maya Barron MD on 10/19/2020 Collected: 10/19/2020 Reported: 10/19/2020 16:10 Reported Physicians See Note None Note: Reported Physicians:Ordering: Les Vanegas: Fady Raza To: Maya Barron Reviewed by Maya Braron MD on 10/20; All test results are final unless otherwise noted. TSH w/ reflex to Free T4 [facility] Ordered by Maya Barron MD on 10/19/2020 Collected: 10/19/2020 Reported: 10/19/2020 16:08 TSH SerPl DL<=0.005 mIU/L-aCnc 1.66 MicroInternationalUnitsPerMilliLiter_[Arbitrary_Con (0.35-5. 50) N (Normal) Note: Responsible Observer: TSH TSH 600 .7060 (D) Reviewed by Maya Barron MD on 10/20; All test results are final unless otherwise noted. Reported Physicians [facility] Ordered by Maya Barron MD on 10/19/2020 Collected: 10/19/2020 Reported: 10/19/2020 16:08 Reported Physicians See Note None Note: Reported Physicians:Ordering: Les Vanegas: Fady Raza To: Maya Barron Reviewed by Maya Barron MD on 10/20; All test results are final unless otherwise noted. CMP [facility] Ordered by Maya Barron MD [...] unless otherwise noted. CBC W AUTO DIFF [facility] Ordered by Maya Barron MD [...] Auto See Note (0-2) N (Normal) Note: [id number] Ob line server: IG% IG% 100.1375 (B) Hct VFr Bld [...] are final unless otherwise noted. Reported Physicians [facility] Ordered by Maya Barron MD on 10/19/2020 Collected: 10/19/2020 Reported: 10/19/2020 16:33 Reported Physicians See Note None Note: Reported Physicians:Ordering: Les Vanegasding: Fady Raza To: Maya Barron Reviewed by Maay Barron MD on 10/20; All test results are final unless otherwise noted. CRP, C-REACTIVE PROTEIN [facility] Ordered by Maya Barron MD on 10/19/2020 Collected: 10/19/2020 Reported: 10/19/2020 16:08 CRP SerPl-mCnc 7.5 MilliGramsPerLiter_[Mass_Concentration_Units] (0.0-5.0) H (High) Note: Responsible Observer: CRP C-Reacti ve Protein 401.4355 (H) Reviewed by Maya Barron MD on 10/20; All test results are final unless otherwise noted. SED RATE [facility] Ordered by Maya Barron MD on 10/19/2020 Collected: 10/19/2020 Reported: 10/19/2020 16:32 ESR Bld Qn Westrgrn 22 (0-20) H (High) Note: @Reenter manual test result: 22@by Jia Lentz at 10/19/20 1632.Responsible Observer: SED RATE SED RATE 100.6400 (B) Reviewed by Maya Barron MD on 10/20; All test results are final unless otherwise noted. Reported Physicians [facility] Ordered by Maya Barron MD on 10/19/2020 Collected: 10/19/2020 Reported: 10/19/2020 16:33 Reported Physicians See Note None Note: Reported Physicians:Ordering: Les Vanegas AAttending: Fady Raza To: Maya Barron Reviewed by Maya Barron MD on 10/20; All test results are final unless otherwise noted. PT/PTT [facility] Ordered by Maya Barron MD [...] are final unless otherwise noted. Reported Physicians [facility] Ordered by Maya Barron MD on 10/08/2020 Collected: 10/08/2020 Reported: 10/08/2020 03:22 Reported Physicians See Note None Note: Reported Physicians:Ordering: Sana Recinosending: Sammie Ann To: Maya Barron Reviewed by Maya Barron MD on 10/09; All test results are final unless otherwise noted. CBC W AUTO DIFF [facility] Ordered by Maya Barron MD [...] Auto See Note (0-2) N (Normal) Note: [id number] Ob line server: IG% IG% 100.1375 (B) Hct VFr Bld [...] results are final unless otherwise noted. MAGNESIUM [facility] Ordered by Maya Barron MD on 10/08/2020 Collected: 10/08/2020 Reported: 10/08/2020 03:17 Magnesium SerPl-mCnc 1.8 MilliGramsPerDeciLiter_[Mass_Concentration_Units] (1.3-2.7) N (Normal) Note: Responsible Observer: Magnesium Ma gnesium 400.3300 (G) Reviewed by Maya Barron MD on 10/09; All test results are final unless otherwise noted. D-DIMER [facility] Ordered by Maya Barron MD [...] are final unless otherwise noted. Reported Physicians [facility] Ordered by Maya Barron MD on 10/08/2020 Collected: 10/08/2020 Reported: 10/08/2020 03:27 Reported Physicians See Note None Note: Reported Physicians:Ordering: Sana Recionsending: Sammie Ann To: Maya Barron Reviewed by Maya Barron MD on 10/09; All test results are final unless otherwise noted. [facility] Ordered by Maya Barron [...] are final unless otherwise noted. Reported Physicians [facility] Ordered by Maya Barron MD on 10/08/2020 Collected: 10/08/2020 Reported: 10/08/2020 03:21 Reported Physicians See Note None Note: Reported Physicians:Ordering: Sana Recinosending: Sammie Ann To: Maya Barron Reviewed by Maya Barron MD on 10/09; All test results are final unless otherwise noted. SED RATE [facility] Ordered by Maya Barron MD on 10/04/2020 Collected: 10/04/2020 Reported: 10/04/2020 18:05 ESR Bld Qn Westrgrn 16 (0-20) N (Normal) Note: @Reenter manual test result: 16@by Jia Lentz at 10/04/20 1805.Responsible Observer: SED RATE SED RATE 100.6400 (B) Reviewed by Maya Barron MD on 10/09; All test results are final unless otherwise noted. Reported Physicians [facility] Ordered by Maya Barron MD on 10/04/2020 Collected: 10/04/2020 Reported: 10/04/2020 18:06 Reported Physicians See Note None Note: Reported Physicians:Ordering: Les Vanegas AAttending: Fady Raza To: Maya Barron Reviewed by Maya Barron MD on 10/09; All test results are final unless otherwise noted. TROPONIN [facility] Ordered by Maya Barron MD on 10/04/2020 Collected: 10/04/2020 Reported: 10/04/2020 17:35 Troponin I SerPl-mCnc Less Than 0.015 (0.00-0.09) N (Normal) Note: Less than 0.09 NG/ML Negative 0.10 - 0.77 NG/ML High Risk0.78 NG/ML or Greater PositiveThe WHO defined the cutoff (definition for diagnosis of [place])for this method as 0.78 ng/ml.Responsible Observer: Troponin I Troponin I 600.1101 (G) Reviewed by Maya Barron MD on 10/09; All test results are final unless otherwise noted. Reported Physicians [facility] Ordered by Maya Barron MD on 10/04/2020 Collected: 10/04/2020 Reported: 10/04/2020 17:35 Reported Physicians See Note None Note: Reported Physicians:Ordering: Les Vanegasding: Fady Raza To: Maya Barron Reviewed by Maya Barron MD on 10/09; All test results are final unless otherwise noted. CBC W AUTO DIFF [facility] Ordered by Maya Barron MD [...] Auto See Note (0-2) N (Normal) Note: [id number] Ob line server: IG% IG% 100.1375 (B) Hct VFr Bld [...] test results are final unless otherwise noted. [facility] Ordered by Maya Barron [...] are final unless otherwise noted. Reported Physicians [facility] Ordered by Maya Barron MD on 10/04/2020 Collected: 10/04/2020 Reported: 10/04/2020 17:42 Reported Physicians See Note None Note: Reported Physicians:Ordering: Les Vanegas: Fady Raza To: Maya Barron Reviewed by Maya Barron MD on 10/09; All test results are final unless otherwise noted. TSH w/ reflex to Free T4 [facility] Ordered by Maya Barron MD on 10/04/2020 Collected: 10/04/2020 Reported: 10/04/2020 17:42 TSH SerPl DL<=0.005 mIU/L-aCnc 1.92 MicroInternationalUnitsPerMilliLiter_[Arbitrary_Con (0.35-5. 50) N (Normal) Note: Responsible Observer: TSH TSH 600 .7060 (D) Reviewed by Maya Barron MD on 10/09; All test results are final unless otherwise noted. Reported Physicians [facility] Ordered by Maya Barron MD on 10/04/2020 Collected: 10/04/2020 Reported: 10/04/2020 17:42 Reported Physicians See Note None Note: Reported Physicians:Ordering: Les Vanegas: Fady Raza To: Maya Barron Reviewed by Maya Barron MD on 10/09; All test results are final unless otherwise noted. MANUAL DIFF [facility] Ordered by Maya Barron MD [...] are final unless otherwise noted. Reported Physicians [facility] Ordered by Maya Barron MD on 10/03/2020 Collected: 10/03/2020 Reported: 10/03/2020 19:56 Reported Physicians See Note None Note: Reported Physicians:Ordering: Brook yeung PatAttending: Charles Silva To: Maya Barron Reviewed by Maya Barron MD on 10/04; All test results are final unless otherwise noted. FREE T4 (LAB) [facility] Ordered by Maya Barron MD on 10/03/2020 Collected: 10/03/2020 Reported: 10/03/2020 20:08 T4 Free SerPl-mCnc 0.97 NanoGramsPerDeciLiter_[Mass_Concentration_Units] (0.89-1.76) N (Normal) Note: Responsible Observer: FREE T4 Free Thyroxine 600.7005 (D) Reviewed by Maya Barron MD on 10/04; All test results are final unless otherwise noted. Reported Physicians [facility] Ordered by Maya Barron MD on 10/03/2020 Collected: 10/03/2020 Reported: 10/03/2020 20:08 Reported Physicians See Note None Note: Reported Physicians:Ordering: Yoli NapolesAttending: Charles Silva To: Maya Barron Reviewed by Maya Barron MD on 10/04; All test results are final unless otherwise noted. CBC W AUTO DIFF [facility] Ordered by Maya Barron MD [...] Auto See Note (0-2) N (Normal) Note: [id number] Ob line server: IG% IG% 100.1375 (B) Hct VFr Bld [...] test results are final unless otherwise noted. [facility] Ordered by Maya Barron [...] are final unless otherwise noted. Reported Physicians [facility] Ordered by Maya Barron MD on 10/03/2020 Collected: 10/03/2020 Reported: 10/03/2020 20:03 Reported Physicians See Note None Note: Reported Physicians:Ordering: Yoli NapolesAttending: Charles Silva To: Maya Barron Reviewed by Maya Barron MD on 10/04; All test results are final unless otherwise noted. [facility] Quantitative [facility] Ordered by Maya Barron MD on 10/03/2020 Collected: 10/03/2020 Reported: 10/03/2020 20:23 B-HCG SerPl-aCnc 49451 MilliInternationalUnitsPerMilliLiter_[Arbitrary_Con (0-10) H (High) Note: @Instrument will [...] are final unless otherwise noted. Reported Physicians [facility] Ordered by Maya Barron MD on 10/03/2020 Collected: 10/03/2020 Reported: 10/03/2020 20:23 Reported Physicians See Note None Note: Reported Physicians:Ordering: Yoli NapolesAttending: Charles Silva To: Maya Barron Reviewed by Maya Barron MD on 10/04; All test results are final unless otherwise noted. TROPONIN [facility] Ordered by Maya Barron MD on 10/03/2020 Collected: 10/03/2020 Reported: 10/03/2020 20:07 Troponin I SerPl-mCnc Less Than 0.015 (0.00-0.09) N (Normal) Note: Less than 0.09 NG/ML Negative 0.10 - 0.77 NG/ML High Risk0.78 NG/ML or Greater PositiveThe WHO defined the cutoff (definition for diagnosis of [place])for this method as 0.78 ng/ml.Responsible Observer: Troponin I Troponin I 600.1101 (G) Reviewed by Maya Barron MD on 10/04; All test results are final unless otherwise noted. Reported Physicians [facility] Ordered by Maya Barron MD on 10/03/2020 Collected: 10/03/2020 Reported: 10/03/2020 20:07 Reported Physicians See Note None Note: Reported Physicians:Ordering: Yoli NapolesAttending: Charles Silva To: Maya Barron Reviewed by Maya Barron MD on 10/04; All test results are final unless otherwise noted. UA W/ CULTURE IF ABNORMAL [facility] Ordered by Maya Barron MD on 10/03/2020 Collected: 10/03/2020 Reported: 10/03/2020 19:52 Urobilinogen Ur Ql See Note (0.2-1 EU/dl) None Note: 0.2 EU/dl0.2 EU/[id number] E U/dlResponsible Observer: UROBILINOGEN UROBILINOGEN 300.4500 (C) RBC # Ur Strip NEGATIVE (NEGATIVE) None Note: Responsible Observer: BLOOD BLOOD 300.4652 (C) Prot Ur Ql Strip See Note (NEGATIVE) None Note: [id number] EResponsible Observer: PROTEIN PROTEIN 300.3750 (C) Ketones Ur Ql Strip See Note (NEGATIVE) None Note: [id number] EResponsible Observer: KETONE KETONE 300.3900 (C) Bilirub Ur Ql Strip.auto See Note (NEGATIVE) None Note: [id number] EResponsible Observer: BILIRUBIN BILIRUBIN 300.4550 (C) Glucose Ur Strip.auto-mCnc NEGATIVE (NEGATIVE) None Note: Responsible Observer: GLUCOSE GLUC OSE 300.3850 (C) Appearance Ur See Note (CLEAR) None Note: CLEARCLEARLCLEARResponsible Observ er: APPEARANCE APPEARANCE 300.3400 (A) Color Ur See Note None Note: YELLOWYELLOWLYELLOWResponsible Obs erver: COLOR COLOR 300.3330 (A) Leukocyte esterase Ur Ql Strip See Note (NEGATIVE) None Note: [id number]@DO MICR O!!!!A Culture has been added to this specimen per established criteriaResponsible Observer: LEUKOCYTES LEUKOCYTES 300.3576 (C) Nitrite Ur Ql Strip See Note (NEGATIVE) None Note: [id number] EResponsible Observer: NITRITE NITRITE 300.3652 (B) pH [...] are final unless otherwise noted. Urine culture [facility] Ordered by Maya Barron MD on 10/03/2020 Collected: 10/03/2020 Reported: 10/04/2020 13:10 Bacteria Ur Cult See Note None Note: NGNo growth.L1NG NOTES See Note None Note: @10/03/201951: Urine culture adde d. RFLXG = CULT.ADD. Reviewed by Maya Barron MD on 10/04; All test results are final unless otherwise noted. Reported Physicians [facility] Ordered by Maya Barron MD on 10/03/2020 Collected: 10/03/2020 Reported: 10/04/2020 13:10 Reported Physicians See Note None Note: Reported Physicians:Ordering: Yoli NapolesAttending: Charles Silva To: Maya Barron Reviewed by Maya Barron MD on 10/04; All test results are final unless otherwise noted. ADD ON MICROSCOPIC [facility] Ordered by Maya Barron MD on 10/03/2020 Collected: 10/03/2020 Reported: 10/03/2020 19:52 ADD ON MICROSCOPIC See Note (0-5) None Note: NOTES OTHER/NOT INTERPRETED Bacteria UrnS Ql Micro SMALL AMOUNT Bacteria UrnS Ql Micro SMALL AMOUNT Bacteria UrnS Ql Micro L Bacteria UrnS Ql Micro Bacteria UrnS Ql Micro Bacteria UrnS Ql Micro Bacteria UrnS Ql Micro [id number] Bacteria UrnS Ql Micro Bacteria UrnS Ql [...] are final unless otherwise noted. Reported Physicians [facility] Ordered by Maya Barron MD on 10/03/2020 Collected: 10/03/2020 Reported: 10/03/2020 19:52 Reported Physicians See Note None Note: Reported Physicians:Ordering: Yoli NapolesAttending: Charles Silva To: Maya Barron Reviewed by Maya Barron MD on 10/04; All test results are final unless otherwise noted. CBC W AUTO DIFF [facility] Ordered by Maya Barron MD [...] Auto See Note (0-2) N (Normal) Note: [id number] Ob line server: IG% IG% 100.1375 (B) Hct VFr Bld [...] test results are final unless otherwise noted. [facility] Ordered by Maya Barron [...] are final unless otherwise noted. Reported Physicians [facility] Ordered by Maya Barron MD on 09/18/2020 Collected: 09/18/2020 Reported: 09/18/2020 20:10 Reported Physicians See Note None Note: Reported Physicians:Ordering: Yoli NapolesAttending: Charles Silva To: Maya Barron Reviewed by Maya Barron MD on 09/20; All test results are final unless otherwise noted. TROPONIN [facility] Ordered by Maya Barron MD on 09/18/2020 Collected: 09/18/2020 Reported: 09/18/2020 20:10 Troponin I SerPl-mCnc Less Than 0.015 (0.00-0.09) N (Normal) Note: Less than 0.09 NG/ML Negative 0.10 - 0.77 NG/ML High Risk0.78 NG/ML or Greater PositiveThe WHO defined the cutoff (definition for diagnosis of [place])for this method as 0.78 ng/ml.Responsible Observer: Troponin I Troponin I 600.1101 (G) Reviewed by Maya Barron MD on 09/20; All test results are final unless otherwise noted. Reported Physicians [facility] Ordered by Maya Barron MD on 09/18/2020 Collected: 09/18/2020 Reported: 09/18/2020 20:10 Reported Physicians See Note None Note: Reported Physicians:Ordering: Yoli NapolesAttending: Charles Silva To: Maya Barron Reviewed by Maya Barron MD on 09/20; All test results are final unless otherwise noted. BHCG, QUANTITATIVE [facility] Ordered by Maya Barron MD on 09/18/2020 Collected: 09/18/2020 Reported: 09/18/2020 20:21 B-HCG [facility] [id number] MilliInternationalUnitsPerMilliLiter_[Arbitrary_Con (0-10) H (High) Note: APPROXIMATE GESTATION [...] are final unless otherwise noted. Reported Physicians [facility] Ordered by Maya Barron MD on 09/18/2020 Collected: 09/18/2020 Reported: 09/18/2020 20:22 Reported Physicians See Note None Note: Reported Physicians:Ordering: Yoli NapolesAttending: Charles Silva To: Maya Barron Reviewed by Maya Barron MD on 09/20; All test results are final unless otherwise noted. Urine culture [facility] Ordered by Cat Gutierrez RPA on 09/11/2020 Collected: 09/11/2020 Reported: 09/12/2020 13:11 Bacteria Ur Cult See Note None Note: NGNo growth.L1NG NOTES See Note None Note: GEORGIANA PICKARD IN OTHER NAME IN MEDICAL RECORD Reviewed by Cat Gutierrez RPA on 09/12; All test results are final unless otherwise noted. Reported Physicians [facility] Ordered by Cat Gutierrez RPA on 09/11/2020 Collected: 09/11/2020 Reported: 09/12/2020 13:11 Reported Physicians See Note None Note: Reported Physicians:Ordering: Cat ConwayAttending: Cat Gutierrez Reviewed by Cat Gutierrez RPA on 09/12; All test results are final unless otherwise noted. UA W/ CULTURE IF ABNORMAL [facility] Ordered by Maya Barron MD on 09/10/2020 Collected: 09/10/2020 Reported: 09/10/2020 17:48 Urobilinogen Ur Ql See Note (0.2-1 EU/dl) None Note: 0.2 EU/dl0.2 EU/[id number] E U/dlResponsible Observer: UROBILINOGEN UROBILINOGEN 300.4500 (C) RBC # Ur Strip NEGATIVE (NEGATIVE) None Note: Responsible Observer: BLOOD BLOOD 300.4652 (C) Prot Ur Ql Strip See Note (NEGATIVE) None Note: [id number] EResponsible Observer: PROTEIN PROTEIN 300.3750 (C) Ketones Ur Ql Strip See Note (NEGATIVE) None Note: [id number] ble Observer: KETONE KETONE 300.3900 (C) Bilirub Ur Ql Strip.auto See Note (NEGATIVE) None Note: [id number] EResponsible Observer: BILIRUBIN BILIRUBIN 300.4550 (C) Glucose Ur Strip.auto-mCnc NEGATIVE (NEGATIVE) None Note: Responsible Observer: GLUCOSE GLUC OSE 300.3850 (C) Appearance Ur See Note (CLEAR) None Note: CLEARCLEARLCLEARResponsible Observ er: APPEARANCE APPEARANCE 300.3400 (A) Color Ur See Note None Note: YELLOWYELLOWLYELLOWResponsible Obs erver: COLOR COLOR 300.3330 (A) Leukocyte esterase Ur Ql Strip See Note (NEGATIVE) None Note: [id number] EResponsible Observer: LEUKOCYTES LEUKOCYTES 300.3576 (C) Nitrite Ur Ql Strip See Note (NEGATIVE) None Note: [id number] EResponsible Observer: NITRITE NITRITE 300.3652 (B) pH [...] are final unless otherwise noted. Reported Physicians [facility] Ordered by Maya Barron MD on 09/10/2020 Collected: 09/10/2020 Reported: 09/10/2020 17:48 Reported Physicians See Note None Note: Reported Physicians:Ordering: Les Vanegas: Fady Raza To: Maya Barron Reviewed by Maya Barron MD on 09/11; All test results are final unless otherwise noted. BHCG, QUANTITATIVE [facility] Ordered by Maya Barron MD on 09/10/2020 Collected: 09/10/2020 Reported: 09/10/2020 15:48 B-HCG [facility] [address] MilliInternationalUnitsPerMilliLiter_[Arbitrary_Con (0-10) H (High) Note: @Instrument will [...] are final unless otherwise noted. Reported Physicians [facility] Ordered by Maya Barron MD on 09/10/2020 Collected: 09/10/2020 Reported: 09/10/2020 15:49 Reported Physicians See Note None Note: Reported Physicians:Ordering: Les Vanegas: Fady Raza To: Maya Barron Reviewed by Maya Barron MD on 09/11; All test results are final unless otherwise noted. ABO/Rh Type [facility] Ordered by Maya Barron MD on 09/10/2020 Collected: 09/10/2020 Reported: 09/10/2020 15:43 Blood bank studies Yes None Note: Responsible Observer: Prev. Histor y? Previous History? 100.0800 (A) Blood Type See Note None Note: OPO PositiveLResponsible Observer: Blood Type Blood Type 110.0950 (C) Reviewed by Maya Barron MD on 09/11; All test results are final unless otherwise noted. Reported Physicians [facility] Ordered by Maya Barron MD on 09/10/2020 Collected: 09/10/2020 Reported: 09/10/2020 15:43 Reported Physicians See Note None Note: Reported Physicians:Ordering: Les Vanegastending: Fady Raza To: Maya Barron Reviewed by Maya Barron MD on 09/11; All test results are final unless otherwise noted. COVID QUEST [facility] Ordered by Maya Barron MD [...] findings,re- testing should be considered in consultation [facility] health authorities. Laboratory test results shouldalways be considered in the context of clinicalobservations and epidemiological data in making a finaldiagnosis and patient management decisions.Please review the "Fact Sheets" and FDA authorizedlabeling available for health care providers andpatients using the following websites:https://www.[employer] .com/home/Covid-19/HCP/NAAT/fact-pokwo3ofwzw://www.[employer].Boxever/home/Cov id-19/Patients/NAAT/fact-cmmis2Urrv test has been authorized by the FDA under anEmergency Use Authorization (EUA) for use by authorizedlaboratories.Due to the current public health emergency, [facility] is receiving a high volume of samples [...] information about COVID-19 can be foundat the [employer] website:www.[facility].com/Covid19.THIS TEST WAS PERFORMED AT:[facility] [id number] ONEILLesponsible Observer: COVID-19 COVID-19 ТАТЬЯНА (SARS-CoV-2) [id number] 914.4975 (KIDOZ) Reviewed by Maya Barron MD on 08/25; All test results are final unless otherwise noted. Reported Physicians [facility] Ordered by Maya Barron MD on 08/23/2020 Collected: 08/23/2020 Reported: 08/25/2020 03:57 Reported Physicians See Note None Note: Reported Physicians:Ordering: Sana Recinosending: Sammie Ann To: Maya Barron Reviewed by Maya Barron MD on 08/25; All test results are final unless otherwise noted. Rapid Strep [facility] Ordered by Maya Barron MD on 08/15/2020 [address] [place], [address] Collected: 08/15/2020 Reported: 08/15/2020 11:47 tel : strep antigen normal (negative) N (Normal) Reviewed by Maya Barron MD on 08/15; All test results are final unless otherwise noted. Urinalysis w/out microscopy [facility] Ordered by Maya Barron MD on 08/15/2020 [address] [place], [address] Specimen Source: Urine Collected: 08/15/2020 Reporte d: 08/15/2020 11:03 tel: bilirubin normal (neg) N (Normal) blood normal [...] unless otherwise noted. Extended hours FLU/COV2 NAAT [facility] Ordered by Maya Barron MD on 08/15/2020 Collected: 08/15/2020 Reported: 08/15/2020 15:55 Extended hours FLU/COV2 NAAT See Note None Note: TNPNo Reportable ResultLTNPNo Repo rtable [id number] NOTES See Note None Note: GEORGIANA PICKARD IN OTHER NAME IN MEDICAL RECORD Reviewed by Maya Barron MD on 08/16; All test results are final unless otherwise noted. Reported Physicians [facility] Ordered by Maya Barron MD on 08/15/2020 Collected: 08/15/2020 Reported: 08/15/2020 15:55 Reported Physicians See Note None Note: Reported Physicians:Ordering: Maya AlvarengaAttending: Maya Barron Reviewed by Maya Barron MD on 08/16; All test results are final unless otherwise noted. Sweta Raquel SARS/FLU [facility] Ordered by Maya Barron MD on 08/15/2020 Collected: 08/15/2020 Reported: 08/15/2020 15:55 Sweta Raquel SARS/FLU See Note None Note: Sweat Raquel is a rapid, automated q ualitative anddifferentiation of Influenza type A,B and HXSG-MMW-7MPHI-RT-PCR testNORMAL VALUE IS "NOT DETECTED".Limitations of the sweta raquel Influenza A/B & PDQY-CHT-8wwasy method.Modifications to manufacturers recommendation and proceduresmay alter performance of the test.Negative results do not preclude Influenza A,B or SARS- MEC5orluuibwcd and should not be used as the [...] out diseases caused by other bacterialor viral pathogens.[id number]-[id number] CoV RNA Resp Ql ТАТЬЯНА+probeLNNSARS SARS-COV-2 NOT [id number]-CMP-0 NOT JZTYADRJ30250-1CBPOT RNA Resp Ql ТАТЬЯНА+probeLNNFLUAInfluenza A Not [id number] A Not Ikewsbys27407-2GWHQI RNA Resp Ql ТАТЬЯНА+probeLNNINBInfluenza B Not [id number] B Not Detected NOTES See Note None Note: GE[place]IANA PICKARD IN OTHER NAME IN MEDICAL RECORD Reviewed by Maya Barron MD on 08/18; All test results are final unless otherwise noted. Throat culture [facility] Ordered by Maya Barron MD on 08/15/2020 Collected: 08/15/2020 Reported: 08/17/2020 06:37 Throat culture results Normal Deisy None Reviewed by Maya Barron MD on 08/18; All test results are final unless otherwise noted. Reported Physicians [facility] Ordered by Maya Barron MD on 08/15/2020 Collected: 08/15/2020 Reported: 08/17/2020 06:37 Reported Physicians See Note None Note: Reported Physicians:Ordering: Maya AlvarengaAttending: Maya Barron Reviewed by Maya Barron MD on 08/18; All test results are final unless otherwise noted. HPVI [facility] Ordered by Cat Gutierrez RPA on 08/09/2020 Collected: 08/09/2020 Reported: 08/15/2020 06:53 Thin Prep Vag See Note None Note: See scanned reportSee scanned repo rtLSee scanned reportResponsible Observer: TP w/HPV if ASC Thinprep w/HPV if ASCUS 805.1454 (LCI) NOTES See Note None Note: [id number] Technique: BRUS H-SPATULABody Site: CERVIX Reviewed by Cat Gutierrez RPA on 08/15; All test results are final unless otherwise noted. Reported Physicians [facility] Ordered by Cat Gutierrez RPA on 08/09/2020 Collected: 08/09/2020 Reported: 08/15/2020 06:53 Reported Physicians See Note None Note: Reported Physicians:Ordering: Atte nding: Cat GutierrezCopy To: Maya Barron Reviewed by Cat Gutierrez RPA on 08/15; All test results are final unless otherwise noted. GCAMP [facility] Ordered by Cat Gutierrez RPA on 08/09/2020 Collected: 08/09/2020 Reported: 08/11/2020 06:52 C trach rRNA XXX Ql ТАТЬЯНА+probe See Note (NOT DETECTED) None Note: NOT DETECTEDNOT [id number] 6NOT DETECTEDResponsible Observer: C.Trach RNA Chlamydia trachomatis DNA-ТАТЬЯНА [id number] 913.9900 (KIDOZ) N gonorrhoea rRNA XXX Ql ТАТЬЯНА+probe See Note (NOT DETECTED) None Note: NOT DETECTEDNOT [id number] 6NOT DETECTEDResponsible Observer: GC RNA Neisseria gonorrhoeae DNA -ТАТЬЯНА [id number] 913.9905 ([facility]) Chlamydia/GC DNA Note SEE NOTE None Note: The analytical performance charact eristics of thisassay, when used to test SurePath(TM) specimens have beendetermined by [employer]. The modifications havenot been cleared or approved by the FDA. This assay hasbeen validated pursuant to the CLIA regulations and isused for clinical purposes.For additional information, please refer tohttps://education.[employer]./faq/MJP631(This link is being provided for information/educational purposes only.)THIS TEST WAS PERFORMED AT:[facility] [address]JUANCHO MEANS,MDResponsible Observer: GC/Chlam Note Chlamydia/GC DNA Note [id number] 913.9907 (A) NOTES See Note None Note: PICKARD:IN OTHER NAME IN MEDICAL RECORD Reviewed by Cat Gutierrez RPA on 08/12; All test results are final unless otherwise noted. Reported Physicians [facility] Ordered by Cat Gutierrez RPA on 08/09/2020 Collected: 08/09/2020 Reported: 08/11/2020 06:52 Reported Physicians See Note None Note: Reported Physicians:Ordering: Atte nding: Brenda, GaudencioanaCopy To: Maya Barron Reviewed by Cat Gutierrez RPA on 08/12; All test results are final unless otherwise noted. AFFIRM [facility] Ordered by Cat Gutierrez RPA on 08/09/2020 Collected: 08/09/2020 Reported: 08/11/2020 06:52 Dionna species DNA Probe NOT DETECTED (NOT DETECTED) None Note: THIS TEST WAS PERFORMED AT:[facility] [address]QOFWCU MERATI,MDResponsible Observer: Dionna DNA Dionna species DNA Probe [id number] 913.2350 (KIDOZ) Gardnerella DNA Probe DETECTED (NOT DETECTED) H (High) Note: Increased levels of G. vaginalis m ay not be significantin the absence of signs and symptoms of bacterialvaginosis.Responsible Observer: Gardnerella DNA Gardnerella DNA Probe [id number] 913.2345 (KIDOZ) Trichomonas DNA Probe NOT DETECTED (NOT DETECTED) None Note: Responsible Observer: Trichomonas DNA Trichomonas DNA Probe [id number] 913.2340 (KIDOZ) NOTES See Note None Note: PICKARD:IN OTHER NAME IN MEDICAL RECORD Reviewed on 08/11/2020; All test result s are final unless otherwise noted. Reported Physicians [facility] Ordered by Cat Gutierrez RPA on 08/09/2020 Collected: 08/09/2020 Reported: 08/11/2020 06:52 Reported Physicians See Note None Note: Reported Physicians:Ordering: Atte oralia: Rigo Gutierrez To: Maya Barron Reviewed on 08/11/2020; All test result s are final unless otherwise noted. ADD ON MICROSCOPIC [facility] Ordered by Cat Gutierrez RPA on 08/09/2020 Collected: 08/09/2020 Reported: 08/09/2020 12:23 ADD ON MICROSCOPIC See Note (0-5) H (High) Note: NOTES OTHER/NOT INTERPRETED Bacteria UrnS Ql Micro SMALL AMOUNT Bacteria UrnS Ql Micro SMALL AMOUNT Bacteria UrnS Ql Micro L Bacteria UrnS Ql Micro Bacteria UrnS Ql Micro Bacteria UrnS Ql Micro Bacteria UrnS Ql Micro [id number] Bacteria UrnS Ql Micro Bacteria UrnS Ql [...] Ql Micro Mucous Threads UrnS Ql Micro [id number] Mucous Threads UrnS Ql Micro Mucous Threads UrnS Ql Micro MODERATE AMOUNT WBC # Ur Manual 5-8 @08/09/20 1210: UA W/ MICRO added. RFLXG = UMIC.Method of Collection:: Clean CatchResponsible Observer: WBC WBC 300.5000 (A) Reviewed by Cat Gutierrez RPA on 08/12; All test results are final unless otherwise noted. Reported Physicians [facility] Ordered by Cat Gutierrez RPA on 08/09/2020 Collected: 08/09/2020 Reported: 08/10/2020 17:47 Reported Physicians See Note None Note: Reported Physicians:Ordering: Atte ndcristiane: Rigo Gutierrez To: Maya Barron Reviewed by Cat Gutierrez RPA on 08/12; All test results are final unless otherwise noted. URINALYSIS [facility] Ordered by Cat Gutierrez RPA on 08/09/2020 Collected: 08/09/2020 Reported: 08/09/2020 12:23 Urobilinogen Ur Ql See Note (0.2-1 EU/dl) None Note: 1 EU/dl1 EU/[id number] EU/dlRe sponsible Observer: UROBILINOGEN UROBILINOGEN 300.4500 (C) RBC # Ur Strip NEGATIVE (NEGATIVE) None Note: Responsible Observer: BLOOD BLOOD 300.4650 (C) Prot Ur Ql Strip See Note (NEGATIVE) None Note: [id number] ble Observer: PROTEIN PROTEIN 300.3750 (C) Ketones Ur Ql Strip See Note (NEGATIVE) None Note: [id number] ble Observer: KETONE KETONE 300.3900 (C) Bilirub Ur Ql Strip.auto See Note (NEGATIVE) None Note: [id number] EResponsible Observer: BILIRUBIN BILIRUBIN 300.4550 (C) Glucose Ur Strip.auto-mCnc NEGATIVE (NEGATIVE) None Note: Responsible Observer: GLUCOSE GLUC OSE 300.3850 (C) Appearance Ur See Note (CLEAR) None Note: CLEARCLEARLCLEARResponsible Observ er: APPEARANCE APPEARANCE 300.3400 (A) Color Ur See Note None Note: DARK YELLOWDARK YELLOWLDARK YELLOW Responsible Observer: COLOR COLOR 300.3300 (A) Leukocyte esterase Ur Ql Strip See Note (NEGATIVE) None Note: [id number]@DO MICR O!!!!Responsible Observer: LEUKOCYTES LEUKOCYTES 300.3575 (C) Nitrite Ur Ql Strip See Note (NEGATIVE) None Note: [id number] EResponsible Observer: NITRITE NITRITE 300.3650 (B) pH [...] are final unless otherwise noted. Urine culture [facility] Ordered by Cat Gutierrez [facility] on 08/09/2020 Collected: 08/09/2020 Reported: 08/10/2020 08:33 Bacteria Ur Cult See Note None Note: NGNo growth.L1NG Reviewed by Cat Gutierrez [facility] on 08/14; All test results are final unless otherwise noted. MEDMATCH [facility] Ordered by Cat Gutierrez [facility] on 08/09/2020 Collected: 08/09/2020 Reported: 08/13/2020 15:56 MEDMATCH See scanned report None Note: Responsible Observer: MEDMATCH MED MATCH 910.33479 (KIDOZ) Reviewed by Cat Gutierrez RPA on 08/14; All test results are final unless otherwise noted. Reported Physicians [facility] Ordered by Cat Gutierrez [facility] on 08/09/2020 Collected: 08/09/2020 Reported: 08/13/2020 15:56 Reported Physicians See Note None Note: Reported Physicians:Ordering: Attchandler barton: Rigo Gutierrez To: Maya Barron Reviewed by Cat Gutierrez [facility] on 08/14; All test results are final unless otherwise noted. Varicella-Zoster IgG Antibody [facility] Ordered by Cat Gutierrez [facility] on 08/09/2020 Collected: 08/09/2020 Reported: 08/10/2020 17:47 [...] Antibody Immunity Screen, ACIF.THIS TEST WAS PERFORMED AT:[facility] [address]SKIVJT ME RATI,MDResponsible Observer: VARICELLA IGG Varicella-Zoster IgG Antibody [id number] 880.6075 ([facility]) NOTES See Note None Note: Patient Street Address: [address] [place] [address] [address]Patient City: [facility] State: [facility] Zip Code: [address]Cdhpyhr Reviewed by Cat Gutierrez RPA on 08/12; All test results are final unless otherwise noted. CBC [facility] Ordered by Cat Gutierrez RPA [...] Auto See Note (0-2) N (Normal) Note: [id number] Ob line server: IG% IG% 100.1375 (B) Hct VFr Bld [...] results are final unless otherwise noted. TSH [facility] Ordered by Cat Gutierrez RPA on 08/09/2020 Collected: 08/09/2020 Reported: 08/09/2020 14:24 TSH SerPl DL<=0.005 mIU/L-aCnc 1.18 MicroInternationalUnitsPerMilliLiter_[Arbitrary_Con (0.35-5. 50) N (Normal) Note: Responsible Observer: TSH TSH 600 .7055 (D) Reviewed by Cat Gutierrez RPA on 08/14; All test results are final unless otherwise noted. Lead (Venous) Wh.Bld [facility] Ordered by Cat Gutierrez RPA on 08/09/2020 Collected: 08/09/2020 Reported: 08/10/2020 17:47 Lead Bld-sCnc <1 (<5) None Note: See Note 1Note 1This test was faith gran[employer] and its analytical performancecharacteristics have been determined by [employer]. It has not been cleared or approved by theA. This assay has been validated pursuant to the CLIAregulations and is used for clinical purposes.THIS TEST WAS PERFORMED AT:[facility] [address]PQOEMO MERATI,MDResponsible Observer: Lead, WB Lead, Whole Blood [id number] 911.2190 ([facility]) NOTES See Note None Note: Patient Street Address: [facility] STATE [address]Patient City: [facility] State: [facility] Zip Code: [address] Reviewed by Cat Gutierrez RPA on 08/14; All test results are final unless otherwise noted. ncPN REF [facility] Ordered by Cat Gutierrez RPA on 08/09/2020 Collected: 08/09/2020 Reported: 08/13/2020 15:26 T pallidum Ab Ser Ql Aggl See Note (Nonreactive) None Note: [id number] onreactiveResponsible Observer: TP-PA Treponema pallidum Ab (TP-PA) [id number] 908.0286 ([facility]) HIV1 RNA SerPl Ql ТАТЬЯНА+probe See Note None Note: TNPNo Reportable ResultLTNPNo Repo rtable ResultLLEP.LIVENTNPResponsible Observer: HIV 1 RNA, QL T HIV 1 RNA, QL TMA [id number] 908.0254 ([facility]) HBV surface Ag SerPl Ql IA See Note (NON-REACTIVE) None Note: [id number] 5NON-REACTIVEResponsible Observer: HBSAG Hepatitis B Surface Antigen 05387724 910.2004 ([facility]) RUBV IgG SerPl IA-aCnc 1.76 None Note: Index Interpretatio n ----- <0.90 Not consistent with immunity 0.90-0.99 Equivocal > or = 1.00 Consistent with immunityThe presence of rubella IgG antibody suggestsimmunization or past or current infection withrubella virus.THIS TEST WAS PERFORMED AT:[facility] [address]HVKMMM MERATI,MDResponsible Observer: Rubella IgG Ab Rubella IgG Ab [id number] 911.2840 ([facility]) HIV1 Ab SerPlBld Ql IA.rapid See Note None Note: TNPNo Reportable ResultLTNPNo Repo rtable ResultLLEP.LIVENTNPResponsible Observer: HIV 1 AB HIV 1 AB [id number] 908.0250 ([facility]) HBsAg Confirmation See Note None Note: TNPNo Reportable ResultLTNPNo Repo rtable ResultLLEP.LIVENTNPResponsible Observer: HBsAg Confirm HBsAg Confirmation [id number] ([facility]) HIV (1&2) Screen, 4th Gen NON-REACTIVE [...] for this purpose.For additional information please refer tohttp://education.[employer].Box[employer]/faq/CHZ220(This link is being provided for informational/educational purposes only.)The performance of this assay has not been clinicallyvalidated in patients less than 2 years old.THIS TEST WAS PERFORMED AT:[facility] [address]XCXAOI MERATI,MDResponsible Observer: HIV ABS HIV (1&2) Screen, 4th Gen [id number] 908.0228 (I) Reviewed by Cat Gutierrez RPA on 08/14; All test results are final unless otherwise noted. Reported Physicians [facility] Ordered by Cat Gutierrez RPA on 08/09/2020 Collected: 08/09/2020 Reported: 08/13/2020 15:27 Reported Physicians See Note None Note: Reported Physicians:Ordering: Atte oralia: Rigo Gutierrez To: Maya Barron Reviewed by Cat Gutierrez RPA on 08/14; All test results are final unless otherwise noted. HCV RFX ТАТЬЯНА [facility] Ordered by Cat Gutierrez RPA on 08/09/2020 Collected: 08/09/2020 Reported: 08/10/2020 17:47 HCV Ab Ser Ql See Note (NON-REACTIVE) None Note: [id number] 7NON-REACTIVEResponsible Observer: HEP C ANTIBODY Hepatitis C Antibody 08876125 914.8305 (KIDOZ) HCV RNA Qualitative (ТАТЬЯНА) 0.54 (<1.00) None Note: HCV antibody was non-reactive. The re is no laboratoryevidence of HCV infection.In most cases, no further action is required. However,if recent HCV exposure is suspected, a test for HCV RNA(test code 64183) is suggested.For additional information please refer tohttp://education.[employer]faq/FPR02p7(This link is being provided for informational/educational purposes only.)THIS TEST WAS PERFORMED AT:[facility] [address]KACLAUDY BURGESSesponsible Observer: SIG TO C/O SIGNAL TO CUTOFF [id number] 914.8337 (KIDOZ) NOTES See Note None Note: Patient Street Address: [address] [place] [address] [address] [facility] Zip Code: [address]Nuyqzkc Reviewed by Cat Gutierrez RPA on 08/12; All test results are final unless otherwise noted. Reported Physicians [facility] Ordered by Cat Gutierrez RPA on 08/09/2020 Collected: 08/09/2020 Reported: 08/10/2020 17:47 Reported Physicians See Note None Note: Reported Physicians:Ordering: Atte ndcristiane: Rigo Gutierrez To: Maya Barron Reviewed by Cat Gutierrez RPA on 08/12; All test results are final unless otherwise noted. Type and Screen [facility] Ordered by Cat Gutierrez RPA on 08/09/2020 Collected: 08/09/2020 Reported: 08/09/2020 12:39 Blood bank studies Yes None Note: Responsible Observer: Prev. Histor y? Previous History? 100.0800 (A) Antibody Screen (PN) NEGATIVE None Note: Responsible Observer: Antibody Scr een Antibody Screen (PN) 200.0002 (C) Blood Type See Note None Note: OPO PositiveLResponsible Observer: Blood Type Blood Type 110.0950 (C) Reviewed by Cta Gutierrez RPA on 08/10; All test results are final unless otherwise noted. Reported Physicians [facility] Ordered by Cat Gutierrez RPA on 08/09/2020 Collected: 08/09/2020 Reported: 08/09/2020 12:39 Reported Physicians See Note None Note: Reported Physicians:Ordering: Cat ConwayAttending: Rigo Gutierrez To: Maya Barron Reviewed by Cat Gutierrez RPA on 08/10; All test results are final unless otherwise noted. [facility], QUANTITATIVE [facility] Ordered by Cat Gutierrez RPA on 08/08/2020 Collected: 08/08/2020 Reported: 08/08/2020 11:53 B-HCG [facility] [address] MilliInternationalUnitsPerMilliLiter_[Arbitrary_Con (0-10) H (High) Note: @Instrument will [...] are final unless otherwise noted. Reported Physicians [facility] Ordered by Cat Gutierrez RPA on 08/08/2020 Collected: 08/08/2020 Reported: 08/08/2020 11:54 Reported Physicians See Note None Note: Reported Physicians:Ordering: Atte nding: Rigo Gutierrez To: Maya Barron Reviewed by Cat Gutierrez RPA on 08/08; All test results are final unless otherwise noted. [facility], QUANTIT[facility]IVE [facility] Ordered by Cat Gutierrez RPA on 08/01/2020 Collected: 08/01/2020 Reported: 08/01/2020 02:26 B-HCG [facility] [address] MilliInternationalUnitsPerMilliLiter_[Arbitrary_Con (0-10) H (High) Note: @Instrument will [...] are final unless otherwise noted. Reported Physicians [facility] Ordered by Cat Gutierrez RPA on 08/01/2020 Collected: 08/01/2020 Reported: 08/01/2020 02:26 Reported Physicians See Note None Note: Reported Physicians:Ordering: Aj Ferreiraending: Jos Rivas To: Maya Barron Reviewed by Cat Gutierrez RPA on 08/01; All test results are final unless otherwise noted. Type and Screen [facility] Ordered by Cat Gutierrez RPA [...] are final unless otherwise noted. Reported Physicians [facility] Ordered by Cat Gutierrez RPA on 08/01/2020 Collected: 08/01/2020 Reported: 08/01/2020 06:03 Reported Physicians See Note None Note: Reported Physicians:Ordering: Aj Ferreiraending: Jos Rivas To: Maya Barron Reviewed by Cat Gutierrez RPA on 08/01; All test results are final unless otherwise noted. CBC W AUTO DIFF [facility] Ordered by Cat Gutierrez RPA [...] Auto See Note (0-2) N (Normal) Note: [id number] Ob line server: IG% IG% 100.1375 (B) Hct VFr Bld [...] test results are final unless otherwise noted. [facility] Ordered by Cat Gutierrez RPA [...] are final unless otherwise noted. Reported Physicians [facility] Ordered by Cat Gutierrez RPA on 08/01/2020 Collected: 08/01/2020 Reported: 08/01/2020 02:26 Reported Physicians See Note None Note: Reported Physicians:Ordering: Aj Ferreiraending: Jos Rivas To: Maya Barron Reviewed by Cat Gutierrez RPA on 08/01; All test results are final unless otherwise noted. ADD ON MICROSCOPIC [facility] Ordered by Cat Gutierrez RPA on 08/01/2020 Collected: 08/01/2020 Reported: 08/01/2020 01:01 ADD ON MICROSCOPIC See Note (0-5) None Note: NOTES OTHER/NOT INTERPRETED Bacteria UrnS Ql Micro MODERATE AMOUNT Bacteria UrnS Ql Micro MODERATE AMOUNT Bacteria UrnS Ql Micro L Bacteria UrnS Ql Micro Bacteria UrnS Ql Micro Bacteria UrnS Ql Micro Bacteria UrnS Ql Micro [id number] Bacteria UrnS Ql Micro Bacteria UrnS Ql [...] 0048: UA W/ MICRO added. RFLXG = [facility] CIF.Method of Collection:: VoidedResponsible Observer: RBC RBC 300.4900 (A) Reviewed by Cat Gutierrez RPA on 08/01; All test results are final unless otherwise noted. Reported Physicians [facility] Ordered by Cat Gutierrez RPA on 08/01/2020 Collected: 08/01/2020 Reported: 08/01/2020 01:01 Reported Physicians See Note None Note: Reported Physicians:Ordering: Aj Ferreiraending: Jos Rivas To: Maya Barron Reviewed by Cat Gutierrez RPA on 08/01; All test results are final unless otherwise noted. UA W/ CULTURE IF ABNORMAL [facility] Ordered by Cat Gutierrez RPA on 08/01/2020 Collected: 08/01/2020 Reported: 08/01/2020 01:01 Urobilinogen Ur Ql See Note (0.2-1 EU/dl) None Note: 0.2 EU/dl0.2 EU/[id number] E U/dlResponsible Observer: UROBILINOGEN UROBILINOGEN 300.4500 (C) RBC # Ur Strip SMALL (NEGATIVE) None Note: @DO MICRO!!!!Responsible Observer: BLOOD BLOOD 300.4652 (C) Prot Ur Ql Strip See Note (NEGATIVE) None Note: [id number] EResponsible Observer: PROTEIN PROTEIN 300.3750 (C) Ketones Ur Ql Strip See Note (NEGATIVE) None Note: 15 mg/dL15 mg/oPA145431050126 mg/d LResponsible Observer: KETONE KETONE 300.3900 (C) Bilirub Ur Ql Strip.auto See Note (NEGATIVE) None Note: [id number] EResponsible Observer: BILIRUBIN BILIRUBIN 300.4550 (C) Glucose Ur Strip.auto-mCnc NEGATIVE (NEGATIVE) None Note: Responsible Observer: GLUCOSE GLUC OSE 300.3850 (C) Appearance Ur See Note (CLEAR) None Note: CLEARCLEARLCLEARResponsible Observ er: APPEARANCE APPEARANCE 300.3400 (A) Color Ur See Note None Note: YELLOWYELLOWLYELLOWResponsible Obs erver: COLOR COLOR 300.3330 (A) Leukocyte esterase Ur Ql Strip See Note (NEGATIVE) None Note: [id number]@DO MICR O!!!!A Culture has been added to this specimen per established criteriaResponsible Observer: LEUKOCYTES LEUKOCYTES 300.3576 (C) Nitrite Ur Ql Strip See Note (NEGATIVE) None Note: [id number] EResponsible Observer: NITRITE NITRITE 300.3652 (B) pH [...] are final unless otherwise noted. Urine culture [facility] Ordered by Cat Gutirerez RPA on 08/01/2020 Collected: 08/01/2020 Reported: 08/02/2020 07:41 Urine culture result See Note None Note: Greater than 100,000 CFU/MLLactoba cilli no senst done NOTES See Note None Note: @08/01/20 0101: Urine culture adde d. RFLXG = CULT.ADD. Reviewed by Cat Gutierrez RPA on 08/02; All test results are final unless otherwise noted. Reported Physicians [facility] Ordered by Cat Gutierrez RPA on 08/01/2020 Collected: 08/01/2020 Reported: 08/02/2020 07:41 Reported Physicians See Note None Note: Reported Physicians:Ordering: Cristino FerreiraAttending: Jos Rivas To: Maya Barron Reviewed by Cat Gutierrez RPA on 08/02; All test results are final unless otherwise noted. [facility], QUANTITATIVE [facility] Ordered by Cat Gutierrez RPA on 07/31/2020 Collected: 07/31/2020 Reported: 07/31/2020 16:53 B-HCG [facility] [address] MilliInternationalUnitsPerMilliLiter_[Arbitrary_Con (0-10) H (High) Note: @Instrument will [...] NAME IN SYSTEM IS PICKARD Reviewed by Cat Gutierrez RPA on 08/01; All test results are final unless otherwise noted. Reported Physicians [facility] Ordered by Cat Gutierrez RPA on 07/31/2020 Collected: 07/31/2020 Reported: 07/31/2020 16:53 Reported Physicians See Note None Note: Reported Physicians:Ordering: Atte oralia: Cat Gutierrez Reviewed by Cat Gutierrez RPA on 08/01; All test results are final unless otherwise noted. UA W/ CULTURE IF ABNORMAL [facility] Ordered by Cat Gutierrez RPA on 07/27/2020 Collected: 07/27/2020 Reported: 07/27/2020 21:36 Urobilinogen Ur Ql See Note (0.2-1 EU/dl) None Note: 0.2 EU/dl0.2 EU/tbY00382802155.2 E U/dlResponsible Observer: UROBILINOGEN UROBILINOGEN 300.4500 (C) RBC # Ur Strip NEGATIVE (NEGATIVE) None Note: Responsible Observer: BLOOD BLOOD 300.4652 (C) Prot Ur Ql Strip See Note (NEGATIVE) None Note: [id number] EResponsible Observer: PROTEIN PROTEIN 300.3750 (C) Ketones Ur Ql Strip See Note (NEGATIVE) None Note: [id number] EResponsible Observer: KETONE KETONE 300.3900 (C) Bilirub Ur Ql Strip.auto See Note (NEGATIVE) None Note: [id number] EResponsible Observer: BILIRUBIN BILIRUBIN 300.4550 (C) Glucose Ur Strip.auto-mCnc NEGATIVE (NEGATIVE) None Note: Responsible Observer: GLUCOSE GLUC OSE 300.3850 (C) Appearance Ur See Note (CLEAR) None Note: CLEARCLEARLCLEARResponsible Observ er: APPEARANCE APPEARANCE 300.3400 (A) Color Ur See Note None Note: YELLOWYELLOWLYELLOWResponsible Obs erver: COLOR COLOR 300.3330 (A) Leukocyte esterase Ur Ql Strip See Note (NEGATIVE) None Note: [id number]@DO MICR O!!!!A Culture has been added to this specimen per established criteriaResponsible Observer: LEUKOCYTES LEUKOCYTES 300.3576 (C) Nitrite Ur Ql Strip See Note (NEGATIVE) None Note: [id number] EResponsible Observer: NITRITE NITRITE 300.3652 (B) pH [...] Reason for ordering culture: Abnor mal findings UA@07/27/20 2118: UA W/ MICRO added. RFLXG = UMIC CIF.Method of Collection:: Voided Reviewed by Cat Gutierrez [facility] on 07/31; All test results are final unless otherwise noted. Urine culture [facility] Ordered by Cat [facility] on 07/27/2020 Collected: 07/27/2020 Reported: 07/29/2020 07:36 Urine culture result 50,000 CFU/ML Lactobacilli no senst done None NOTES See Note None Note: @07/27/202136: Urine culture adde d. RFLXG = CULT.ADD. Reviewed by Cat [facility] on 07/31; All test results are final unless otherwise noted. Reported Physicians [facility] Ordered by Cat [facility] on 07/27/2020 Collected: 07/27/2020 Reported: 07/29/2020 07:37 Reported Physicians See Note None Note: Reported Physicians:Ordering: Daquan BustamanteAttending: Ariella Good To: Maya Barron Reviewed by Cat [facility] on 07/31; All test results are final unless otherwise noted. ADD ON MICROSCOPIC [facility] [facility] Ordered by [facility] on 07/27/2020 Collected: 07/27/2020 Reported: 07/27/2020 21:36 ADD ON MICROSCOPIC See Note (0-5) None Note: NOTES OTHER/NOT INTERPRETED Bacteria UrnS Ql Micro SMALL AMOUNT Bacteria UrnS Ql Micro SMALL AMOUNT Bacteria UrnS Ql Micro L Bacteria UrnS Ql Micro Bacteria UrnS Ql Micro Bacteria UrnS Ql Micro Bacteria UrnS Ql Micro [id number] Bacteria UrnS Ql Micro Bacteria UrnS Ql [...] are final unless otherwise noted. Reported Physicians [facility] Ordered by Cat Gutierrez RPA on 07/27/2020 Collected: 07/27/2020 Reported: 07/27/2020 21:37 Reported Physicians See Note None Note: Reported Physicians:Ordering: Daquan BustamanteAttending: Daquan GoodCopyifan To: Maya Barron Reviewed by Cat Gutierrez RPA on 07/28; All test results are final unless otherwise noted. BHCG, QUANTITATIVE [facility] Ordered by Cat Gutierrez RPA on 07/27/2020 Collected: 07/27/2020 Reported: 07/27/2020 22:08 B-HCG [facility] 6210 MilliInternationalUnitsPerMilliLiter_[Arbitrary_Con (0-10) H (High) [...] are final unless otherwise noted. Reported Physicians [facility] Ordered by Cat Gutierrez RPA on 07/27/2020 Collected: 07/27/2020 Reported: 07/27/2020 22:08 Reported Physicians See Note None Note: Reported Physicians:Ordering: Daquan BustamanteAttending: Ariella Good To: Maya Barron Reviewed by Cat Gutierrez RPA on 07/28; All test results are final unless otherwise noted. [facility] Ordered by aCt Gutierrez RPA on 07/27/2020 Collected: 07/27/2020 Reported: [...] are final unless otherwise noted. Reported Physicians [facility] Ordered by Cat Gutierrez RPA on 07/27/2020 Collected: 07/27/2020 Reported: 07/27/2020 20:37 Reported Physicians See Note None Note: Reported Physicians:Ordering: Daquan BustamanteAttending: Ariella Good To: Maya Barron Reviewed by Cat Gutierrez RPA on 07/28; All test results are final unless otherwise noted. Type and Screen [facility] Ordered by Cat Gutierrez RPA [...] are final unless otherwise noted. Reported Physicians [facility] Ordered by Cat Gutierrez [facility] on 07/27/2020 Collected: 07/27/2020 Reported: 07/27/2020 20:48 Reported Physicians See Note None Note: Reported Physicians:Ordering: Daquan BustamanteAttending: Daquan GoodCopy To: Maya Barron Reviewed by Cat Gutierrez RPA on 07/28; All test results are final unless otherwise noted. CBC W AUTO DIFF [facility] Ordered by Cat Gutierrez [facility] on 07/27/2020 Collected: 07/27/2020 Reported: 07/27/2020 20:10 [...] Auto See Note (0-2) N (Normal) Note: [id number] Ob line server: IG% IG% 100.1375 (B) Hct VFr Bld [...] are final unless otherwise noted. Reported Physicians [facility] Ordered by Cat Gutierrez RPA on 07/27/2020 Collected: 07/27/2020 Reported: 07/27/2020 20:11 Reported Physicians See Note None Note: Reported Physicians:Ordering: Daquan BustamanteAttending: Ariella Good To: Maya Barron Reviewed by Cat Gutierrez RPA on 07/28; All test results are final unless otherwise noted. BHCG, QUANTITATIVE [facility] Ordered by Maya Barron MD on 07/26/2020 Collected: 07/26/2020 Reported: 07/26/2020 16:48 B-HCG [facility] 4155 MilliInternationalUnitsPerMilliLiter_[Arbitrary_Con (0-10) H (High) Note: @Instrument [...] are final unless otherwise noted. Reported Physicians [facility] Ordered by Maya Barron MD on 07/26/2020 Collected: 07/26/2020 Reported: 07/26/2020 16:48 Reported Physicians See Note None Note: Reported Physicians:Ordering: Maya AlvarengaAttending: Maya Barron Reviewed by Maya Barron MD on 07/27; All test results are final unless otherwise noted. Extended hours FLU/COV2 NAAT [facility] Ordered by Bandar Cleveland PA-C on 07/25/2020 Collected: 07/25/2020 Reported: 07/25/2020 18:47 Extended hours FLU/COV2 NAAT See Note None Note: TNPNo Reportable ResultLTNPNo Repo rtable [id number] Reviewed by Bandar Cleveland PA-C on ; All test results are final unless otherwise noted. Reported Physicians [facility] Ordered by Bandar Cleveland PA-C on 07/25/2020 Collected: 07/25/2020 Reported: 07/25/2020 18:47 Reported Physicians See Note None Note: Reported Physicians:Ordering: Janice Wilsonending: Kami Cleveland To: Health, Public Reviewed by Bandar Cleveland PA-C on ; All test results are final unless otherwise noted. Sweta Raquel SARS/FLU [facility] Ordered by Bandar Cleveland PA-C on 07/25/2020 Collected: 07/25/2020 Reported: 07/25/2020 18:47 Sweta Raquel SARS/FLU See Note None Note: Sweta Raquel is a rapid, automated q ualitative anddifferentiation of Influenza type A,B and NVNE-BYY-7JPZZ-RT-PCR testNORMAL VALUE IS "NOT DETECTED".Limitations of the sweta raquel Influenza A/B & XTYK-VCH-0ouajn method.Modifications to manufacturers recommendation and proceduresmay alter performance of the test.Negative results do not preclude Influenza A,B or SARS- MKN2lpauccmbnh and should not be used as the [...] out diseases caused by other bacterialor viral pathogens.[id number]-UoJ-8 RNA Resp Ql ТАТЬЯНА+probeLNNOSNo O rganisms [id number] Organisms Detected Reviewed by Bandar Cleveland PA-C on 1; All test results are final unless otherwise noted. Reported Physicians [facility] Ordered by Bandar Cleveland PA-C on 07/25/2020 Collected: 07/25/2020 Reported: 07/25/2020 18:47 Reported Physicians See Note None Note: Reported Physicians:Ordering: Janice Wilsonending: Kami Cleveland To: Health, Public Reviewed by Bandar Cleveland PA-C on 1; All test results are final unless otherwise noted. CBC W AUTO DIFF [facility] Ordered by Maya Barron MD [...] Auto See Note (0-2) N (Normal) Note: [id number] Ob line server: IG% IG% 100.1375 (B) Hct VFr Bld [...] test results are final unless otherwise noted. [facility] Ordered by Maya Barron [...] are final unless otherwise noted. Reported Physicians [facility] Ordered by Maya Barron MD on 07/22/2020 Collected: 07/22/2020 Reported: 07/22/2020 02:00 Reported Physicians See Note None Note: Reported Physicians:Ordering: Hong LandaverdeAttending: Alon Douglas To: Maya Barron Reviewed by Maya Barron MD on 07/24; All test results are final unless otherwise noted. Extended hours FLU/COV2 NAAT [facility] Ordered by Maya Barron MD on 07/22/2020 Collected: 07/22/2020 Reported: 07/22/2020 01:29 Extended hours FLU/COV2 NAAT See Note None Note: TNPNo Reportable ResultLTNPNo Repo rtable [id number] Reviewed by Maya Barron MD on 07/24; All test results are final unless otherwise noted. Reported Physicians [facility] Ordered by Maya Barron MD on 07/22/2020 Collected: 07/22/2020 Reported: 07/22/2020 01:29 Reported Physicians See Note None Note: Reported Physicians:Ordering: Hong LandaverdeAttending: Alon Douglas To: Maya Barron Reviewed by Maya Barron MD on 07/24; All test results are final unless otherwise noted. Sweta Raquel SARS/FLU [facility] Ordered by Maya Barron MD on 07/22/2020 Collected: 07/22/2020 Reported: 07/22/2020 01:29 Sweta Raquel SARS/FLU See Note None Note: Sweta Raquel is a rapid, automated q ualitative anddifferentiation of Influenza type A,B and AING-THP-9ISAY-RT-PCR testNORMAL VALUE IS "NOT DETECTED".Limitations of the sweta raquel Influenza A/B & VHCT-VBS-5jptod method.Modifications to manufacturers recommendation and proceduresmay alter performance of the test.Negative results do not preclude Influenza A,B or SARS- FHL7mkizvvquxh and should not be used as the [...] out diseases caused by other bacterialor viral pathogens.28750-8EKGI-JgD-0 RNA Resp Ql ТАТЬЯНА+probeLNNOSNo O rganisms [id number] Organisms Detected Reviewed by Maya Barron MD on 07/24; All test results are final unless otherwise noted. Reported Physicians [facility] Ordered by Maya Barron MD on 07/22/2020 Collected: 07/22/2020 Reported: 07/22/2020 01:29 Reported Physicians See Note None Note: Reported Physicians:Ordering: Dominic Landaverdeending: Alon Douglas To: Maya Barron Reviewed by Maya Barron MD on 07/24; All test results are final unless otherwise noted. UA W/ CULTURE IF ABNORMAL [facility] Ordered by Maya Barron MD on 07/22/2020 Collected: 07/22/2020 Reported: 07/22/2020 01:10 Urobilinogen Ur Ql See Note (0.2-1 EU/dl) None Note: 0.2 EU/dl0.2 EU/[id number] E U/dlResponsible Observer: UROBILINOGEN UROBILINOGEN 300.4500 (C) RBC # Ur Strip NEGATIVE (NEGATIVE) None Note: Responsible Observer: BLOOD BLOOD 300.4652 (C) Prot Ur Ql Strip See Note (NEGATIVE) None Note: [id number] EResponsible Observer: PROTEIN PROTEIN 300.3750 (C) Ketones Ur Ql Strip See Note (NEGATIVE) None Note: [id number] EResponsible Observer: KETONE KETONE 300.3900 (C) Bilirub Ur Ql Strip.auto See Note (NEGATIVE) None Note: [id number] EResponsible Observer: BILIRUBIN BILIRUBIN 300.4550 (C) Glucose Ur Strip.auto-mCnc NEGATIVE (NEGATIVE) None Note: Responsible Observer: GLUCOSE GLUC OSE 300.3850 (C) Appearance Ur See Note (CLEAR) None Note: CLEARCLEARLCLEARResponsible Observ er: APPEARANCE APPEARANCE 300.3400 (A) Color Ur See Note None Note: YELLOWYELLOWLYELLOWResponsible Obs erver: COLOR COLOR 300.3330 (A) Leukocyte esterase Ur Ql Strip See Note (NEGATIVE) None Note: [id number] EResponsible Observer: LEUKOCYTES LEUKOCYTES 300.3576 (C) Nitrite Ur Ql Strip See Note (NEGATIVE) None Note: [id number] EResponsible Observer: NITRITE NITRITE 300.3652 (B) pH [...] are final unless otherwise noted. Reported Physicians [facility] Ordered by Maya Barron MD on 07/22/2020 Collected: 07/22/2020 Reported: 07/22/2020 01:11 Reported Physicians See Note None Note: Reported Physicians:Ordering: Hong LandaverdeAttending: Alon Douglas To: Maya Barron Reviewed by Maya Barron MD on 07/24; All test results are final unless otherwise noted. Urine culture [facility] Ordered by Maya Barron MD on 07/19/2020 Collected: 07/19/2020 Reported: 07/21/2020 07:48 Bacteria Ur Cult See Note None Note: NGNo growth.L1NG Reviewed by Maya Barron MD on 07/21; All test results are final unless otherwise noted. Reported Physicians [facility] Ordered by Maya Barron MD on 07/19/2020 Collected: 07/19/2020 Reported: 07/21/2020 07:49 Reported Physicians See Note None Note: Reported Physicians:Ordering: Maya AlvarengaAttending: Maya Barron Reviewed by Maya Barron MD on 07/21; All test results are final unless otherwise noted. BHCG, QUANTITATIVE [facility] Ordered by Maya Barron MD [...] are final unless otherwise noted. Reported Physicians [facility] Ordered by Maya Barron MD on 07/17/2020 Collected: 07/17/2020 Reported: 07/17/2020 12:40 Reported Physicians See Note None Note: Reported Physicians:Ordering: Mariela AlvarengaynAttending: Maya Barron Reviewed by Maya Barron MD on 07/17; All test results are final unless otherwise noted. CUEVAS COVID-19 SCHOOL [facility] Ordered by Maya Barron MD [...] molecular test, if the virus mutates in [facility], Covid-19 may not be detected or may bedetected less predictably.ID NOW COVID-19 is intended for testing a swab directlywithout elution in viral transport media as dilution willresult in decreased detection of low positive samples thatare near the limit of detection of the test.SWAB SAMPLES ELUTED IN VTM ARE NOT APPROPRIATE FOR USE INTHIS TEST.NOSNo Organisms [id number] Organisms Detected Reviewed by Maya Barron MD on 05/31; All test results are final unless otherwise noted. Reported Physicians [facility] Ordered by Maya Barron MD on 05/31/2020 Collected: 05/31/2020 Reported: 05/31/2020 07:08 Reported Physicians See Note None Note: Reported Physicians:Ordering: Johnny HernándezAttending: Johnny CazaresCopyifan To: Maya Barron Reviewed by Maya Barron MD on 05/31; All test results are final unless otherwise noted. BHCG, QUANTITATIVE [facility] Ordered by Maya Barron MD on 05/26/2020 Collected: 05/26/2020 Reported: 05/26/2020 14:49 B[facility] 00731 MilliInternationalUnitsPerMilliLiter_[Arbitrary_Con (0-10) H (High) Note: @Instrument will [...] are final unless otherwise noted. Reported Physicians [facility] Ordered by Maya Barron MD on 05/26/2020 Collected: 05/26/2020 Reported: 05/26/2020 14:50 Reported Physicians See Note None Note: Reported Physicians:Ordering: Maya AlvarengaAttending: Maya Barron Reviewed by Maya Barron MD on 05/26; All test results are final unless otherwise noted. URINALYSIS [facility] Ordered by Maya Barron MD on 05/23/2020 Collected: 05/23/2020 Reported: 05/23/2020 17:19 Urobilinogen Ur Ql See Note (0.2-1 EU/dl) None Note: 0.2 EU/dl0.2 EU/[id number] E U/dlResponsible Observer: UROBILINOGEN UROBILINOGEN 300.4500 (C) RBC # Ur Strip NEGATIVE (NEGATIVE) None Note: Responsible Observer: BLOOD BLOOD 300.4650 (C) Prot Ur Ql Strip See Note (NEGATIVE) None Note: [id number] EResponsible Observer: PROTEIN PROTEIN 300.3750 (C) Ketones Ur Ql Strip See Note (NEGATIVE) None Note: [id number] EResponsible Observer: KETONE KETONE 300.3900 (C) Bilirub Ur Ql Strip.auto See Note (NEGATIVE) None Note: [id number] EResponsible Observer: BILIRUBIN BILIRUBIN 300.4550 (C) Glucose Ur Strip.auto-mCnc NEGATIVE (NEGATIVE) None Note: Responsible Observer: GLUCOSE GLUC OSE 300.3850 (C) Appearance Ur See Note (CLEAR) None Note: CLEARCLEARLCLEARResponsible Observ er: APPEARANCE APPEARANCE 300.3400 (A) Color Ur See Note None Note: YELLOWYELLOWLYELLOWResponsible Obs erver: COLOR COLOR 300.3300 (A) Leukocyte esterase Ur Ql Strip See Note (NEGATIVE) None Note: [id number] EResponsible Observer: LEUKOCYTES LEUKOCYTES 300.3575 (C) Nitrite Ur Ql Strip See Note (NEGATIVE) None Note: [id number] EResponsible Observer: NITRITE NITRITE 300.3650 (B) pH [...] are final unless otherwise noted. Urine culture [facility] Ordered by Maya Barron MD on 05/23/2020 Collected: 05/23/2020 Reported: 05/24/2020 09:24 Bacteria Ur Cult See Note None Note: NGNo growth.L1NG Reviewed by Maya Barron MD on 05/29; All test results are final unless otherwise noted. MEDMATCH [facility] Ordered by Maya Barron MD on 05/23/2020 Collected: 05/23/2020 Reported: 05/26/2020 17:09 MEDMATCH 1.000 (> or = 1.003) None Note: Responsible Observer: MEDMATCH MED MATCH 910.46808 ([facility]) Reviewed by Maya Barron MD on 05/29; All test results are final unless otherwise noted. Reported Physicians [facility] Ordered by Maya Barron MD on 05/23/2020 Collected: 05/23/2020 Reported: 05/26/2020 17:09 Reported Physicians See Note None Note: Reported Physicians:Ordering: Maya AlvarengaAttending: Maya Barron Reviewed by Maya Barron MD on 05/29; All test results are final unless otherwise noted. Varicella-Zoster IgG Antibody [facility] Ordered by Maya Barron MD [...] Antibody Immunity Screen, ACIF.THIS TEST WAS PERFORMED AT:[address] [address]UGIBSE ME RATI,MDResponsible Observer: VARICELLA IGG Varicella-Zoster IgG Antibody [id number] 917.4039 ([facility]) NOTES See Note None Note: Patient Street Address: [facility] [address] [place] [address] [place]: [place] [facility] Zip Code: [address] Reviewed by Maya Barron MD on 05/26; All test results are final unless otherwise noted. Reported Physicians [facility] Ordered by Maya Barron MD on 05/23/2020 Collected: 05/23/2020 Reported: 05/25/2020 17:11 Reported Physicians See Note None Note: Reported Physicians:Ordering: Maya AlvarengaAttending: Maya Barron Reviewed by Maya Barron MD on 05/26; All test results are final unless otherwise noted. CBC [facility] Ordered by Maya Barron MD [...] Auto See Note (0-2) N (Normal) Note: 0.20.4L59228721046.2Responsible Ob line server: IG% IG% 100.1375 (B) Hct VFr Bld [...] results are final unless otherwise noted. TSH [facility] Ordered by Maya Barron MD on 05/23/2020 Collected: 05/23/2020 Reported: 05/23/2020 18:38 TSH SerPl DL<=0.005 mIU/L-aCnc 1.87 MicroInternationalUnitsPerMilliLiter_[Arbitrary_Con (0.35-5. 50) N (Normal) Note: Responsible Observer: TSH TSH 600 .7055 (D) Reviewed by Maya Barron MD on 05/29; All test results are final unless otherwise noted. Lead (Venous) Wh.Bld [facility] Ordered by Maya Barron MD on 05/23/2020 Collected: 05/23/2020 Reported: 05/25/2020 17:11 Lead Bld-sCnc <1 (<5) None Note: See Note 1Note 1This test was [facility] and its analytical performancecharacteristics have been determined by [facility]. It has not been cleared or approved by theA. This assay has been validated pursuant to the CLIAregulations and is used for clinical purposes.THIS TEST WAS PERFORMED AT:[address] [address]ZUZDHC MERATI,MDResponsible Observer: Lead, WB Lead, Whole Blood [id number] 911.2190 ([facility]) NOTES See Note None Note: Patient Street Address: [facility] [address] City: [facility] State: [facility] Zip Code: [address] Reviewed by Maya Barron MD on 05/29; All test results are final unless otherwise noted. ncPN REF [facility] Ordered by Maya Barron MD on 05/23/2020 Collected: 05/23/2020 Reported: 05/27/2020 20:54 T pallidum Ab Ser Ql Aggl See Note (Nonreactive) None Note: [id number] onreactiveResponsible Observer: TP-PA Treponema pallidum Ab (TP-PA) [id number] 908.0286 ([facility]) HIV1 RNA SerPl Ql ТАТЬЯНА+probe See Note None Note: TNPNo Reportable ResultLTNPNo Repo rtable ResultLLEP.LIVENTNPResponsible Observer: HIV 1 RNA, QL T HIV 1 RNA, QL TMA [id number] 908.0254 ([facility]) HBV surface Ag SerPl Ql IA See Note (NON-REACTIVE) None Note: RTV-ZDSFZIBJSSF-[id number] 0NON-REACTIVEResponsible Observer: HBSAG Hepatitis B Surface Antigen [id number] 910.2004 ([facility]) RUBV IgG SerPl IA-aCnc 1.80 None Note: Index Interpretatio n ----- <0.90 Not consistent with Immunity 0.90-0.99 Equivocal > or = 1.00 Consistent with ImmunityThe presence of rubella IgG antibody suggestsimmunization or past or current infection withrubella virus.THIS TEST WAS PERFORMED AT:[address] [address]REZEZN MIGUELANGEL,MDResponsible Observer: Rubella IgG Ab Rubella IgG Ab [id number] 911.2840 ([facility]) HIV1 Ab SerPlBld Ql IA.rapid See Note None Note: TNPNo Reportable ResultLTNPNo Repo rtable ResultLLEP.LIVENTNPResponsible Observer: HIV 1 AB HIV 1 AB [id number] 908.0250 ([facility]) HBsAg Confirmation See Note None Note: TNPNo Reportable ResultLTNPNo Repo rtable ResultLLEP.LIVENTNPResponsible Observer: HBsAg Confirm HBsAg Confirmation [id number] 910.2006 ([facility]) HIV (1&2) Screen, 4th Gen NON-REACTIVE (NON-REACTIVE) [...] for this purpose.For additional information please refer tohttp://education.Admetric.Boxever/faq/EOD621(This link is being provided for informational/educational purposes only.)The performance of this assay has not been clinicallyvalidated in patients less than 2 years old.Responsible Observer: HIV ABS HIV (1&2) Screen, 4th Gen [id number] 908.0228 ([facility]) Reviewed by Maya Barron MD on 05/29; All test results are final unless otherwise noted. Reported Physicians [facility] Ordered by Maya Barron MD on 05/23/2020 Collected: 05/23/2020 Reported: 05/27/2020 20:54 Reported Physicians See Note None Note: Reported Physicians:Ordering: Cara Alvarengaending: Maya Barron Reviewed by Maya Barron MD on 05/29; All test results are final unless otherwise noted. HCV RFX ТАТЬЯНА [facility] Ordered by Maya Barron MD on 05/23/2020 Collected: 05/23/2020 Reported: 05/25/2020 17:11 HCV Ab Ser Ql See Note (NON-REACTIVE) None Note: CQM-[id number] 7NON-REACTIVEResponsible Observer: HEP C ANTIBODY Hepatitis C Antibody [id number] 914.8305 ([facility]) HCV RNA Qualitative (ТАТЬЯНА) 0.59 (<1.00) None Note: HCV antibody was non-reactive. The re is no laboratoryevidence of HCV infection.In most cases, no further action is required. However,if recent HCV exposure is suspected, a test for HCV RNA(test code 94618) is suggested.For additional information please refer tohttp://education.Admetric.Boxever/faq/RHV21s9(This link is being provided for informational/educational purposes only.)THIS TEST WAS PERFORMED AT:[address] [address]OSEAS MEANSMDResponsible Observer: SIG TO C/O SIGNAL TO CUTOFF [id number] 914.8301 ([facility]) NOTES See Note None Note: Patient Street Address: [facility] [address] City: [place] [facility] Zip Code: [address] Reviewed by Maya Barron MD on 05/26; All test results are final unless otherwise noted. Reported Physicians [facility] Ordered by Maya Barron MD on 05/23/2020 Collected: 05/23/2020 Reported: 05/25/2020 17:11 Reported Physicians See Note None Note: Reported Physicians:Ordering: Maya AlvarengaAttending: Maya Barron Reviewed by Maya Barron MD on 05/26; All test results are final unless otherwise noted. Type and Screen [facility] Ordered by Maya Barron MD [...] are final unless otherwise noted. Reported Physicians [facility] Ordered by Maya Barron MD on 05/23/2020 Collected: 05/23/2020 Reported: 05/23/2020 19:32 Reported Physicians See Note None Note: Reported Physicians:Ordering: Maya AlvarengaAttending: Maya Barron Reviewed by Maya Barron MD on 05/24; All test results are final unless otherwise noted. PROGESTERONE [facility] Ordered by Maya Barron MD [...] are final unless otherwise noted. Reported Physicians [facility] Ordered by Maya Barron MD on 04/27/2020 Collected: 04/27/2020 Reported: 04/27/2020 15:58 Reported Physicians See Note None Note: Reported Physicians:Ordering: Johnny HernándezAttending: Jos Castellanos To: Rubén Barron To: Cristino Castellanos Reviewed by Maya Barron MD on 04/30; All test results are final unless otherwise noted. BHCG, QUANTITATIVE [facility] Ordered by Maya Barron MD on 04/27/2020 Collected: 04/27/2020 Reported: 04/27/2020 14:40 [facility] 2353 MilliInternationalUnitsPerMilliLiter_[Arbitrary_Con (0-10) H (High) Note: @Instrument [...] are final unless otherwise noted. Reported Physicians [facility] Ordered by Maya Barron MD on 04/27/2020 Collected: 04/27/2020 Reported: 04/27/2020 14:40 Reported Physicians See Note None Note: Reported Physicians:Ordering: Cristino SnowAttending: Jos Castellanos To: Suzanne Cazares To: Maya Barron Reviewed by Maya Barron MD on 04/30; All test results are final unless otherwise noted. CBC W AUTO DIFF [facility] Ordered by Maya Barron MD [...] Auto See Note (0-2) N (Normal) Note: [id number] Ob line server: IG% IG% 100.1375 (B) Hct VFr Bld [...] test results are final unless otherwise noted. [facility] Ordered by Maya Barron [...] are final unless otherwise noted. Reported Physicians [facility] Ordered by Maya Barron MD on 04/25/2020 Collected: 04/25/2020 Reported: 04/25/2020 22:11 Reported Physicians See Note None Note: Reported Physicians:Ordering: Aj Ferreiraending: Jos Rivas To: Maya Barron Reviewed by Maya Barron MD on 04/26; All test results are final unless otherwise noted. BHCG, QUANTITATIVE [facility] Ordered by Maya Barron MD [...] are final unless otherwise noted. Reported Physicians [facility] Ordered by Maya Barron MD on 04/25/2020 Collected: 04/25/2020 Reported: 04/25/2020 22:11 Reported Physicians See Note None Note: Reported Physicians:Ordering: Aj Ferreiraending: Jos Rivas To: Maya Barron Reviewed by Maya Barron MD on 04/26; All test results are final unless otherwise noted. Urine culture [facility] Ordered by Maya Barron MD on 04/25/2020 Collected: 04/25/2020 Reported: 04/27/2020 04:50 Bacteria Ur Cult See Note None Note: NGNo growth.L1NG NOTES See Note None Note: @ NICOLE DATE was changed from 04/26 to 04/25/20@ by POMCY. Reviewed by Maya Barron MD on 04/30; All test results are final unless otherwise noted. Reported Physicians [facility] Ordered by Maya Barron MD on 04/25/2020 Collected: 04/25/2020 Reported: 04/27/2020 04:51 Reported Physicians See Note None Note: Reported Physicians:Ordering: Aj Ferreiraending: Jos Rivas To: Maya Barron Reviewed by Maya Barron MD on 04/30; All test results are final unless otherwise noted. ADD ON MICROSCOPIC [facility] Ordered by Maya Barron MD on 04/25/2020 Collected: 04/25/2020 Reported: 04/25/2020 21:54 ADD ON MICROSCOPIC See Note (0-5) None Note: NOTES OTHER/NOT INTERPRETED Bacteria UrnS Ql Micro SMALL AMOUNT Bacteria UrnS Ql Micro SMALL AMOUNT Bacteria UrnS Ql Micro L Bacteria UrnS Ql Micro Bacteria UrnS Ql Micro Bacteria UrnS Ql Micro Bacteria UrnS Ql Micro [id number] Bacteria UrnS Ql Micro Bacteria UrnS Ql [...] are final unless otherwise noted. Reported Physicians [facility] Ordered by Maya Barron MD on 04/25/2020 Collected: 04/25/2020 Reported: 04/25/2020 21:54 Reported Physicians See Note None Note: Reported Physicians:Ordering: Aj Ferreiraending: Jos Rivas To: Maya Barron Reviewed by Maya Barron MD on 04/26; All test results are final unless otherwise noted. URINALYSIS [facility] Ordered by Maya Barron MD on 04/25/2020 Collected: 04/25/2020 Reported: 04/25/2020 21:54 Urobilinogen Ur Ql See Note (0.2-1 EU/dl) None Note: 0.2 EU/dl0.2 EU/[id number] E U/dlResponsible Observer: UROBILINOGEN UROBILINOGEN 300.4500 (C) RBC # Ur Strip NEGATIVE (NEGATIVE) None Note: Responsible Observer: BLOOD BLOOD 300.4650 (C) Prot Ur Ql Strip See Note (NEGATIVE) None Note: [id number] EResponsible Observer: PROTEIN PROTEIN 300.3750 (C) Ketones Ur Ql Strip See Note (NEGATIVE) None Note: [id number] EResponsible Observer: KETONE KETONE 300.3900 (C) Bilirub Ur Ql Strip.auto See Note (NEGATIVE) None Note: [id number] EResponsible Observer: BILIRUBIN BILIRUBIN 300.4550 (C) Glucose Ur Strip.auto-mCnc NEGATIVE (NEGATIVE) None Note: Responsible Observer: GLUCOSE GLUC OSE 300.3850 (C) Appearance Ur See Note (CLEAR) None Note: CLEARCLEARLCLEARResponsible Observ er: APPEARANCE APPEARANCE 300.3400 (A) Color Ur See Note None Note: YELLOWYELLOWLYELLOWResponsible Obs erver: COLOR COLOR 300.3300 (A) Leukocyte esterase Ur Ql Strip See Note (NEGATIVE) None Note: [id number]@DO MICR O!!!!Responsible Observer: LEUKOCYTES LEUKOCYTES 300.3575 (C) Nitrite Ur Ql Strip See Note (NEGATIVE) None Note: [id number] EResponsible Observer: NITRITE NITRITE 300.3650 (B) pH [...] are final unless otherwise noted. Reported Physicians [facility] Ordered by Maya Barron MD on 04/25/2020 Collected: 04/25/2020 Reported: 04/25/2020 21:54 Reported Physicians See Note None Note: Reported Physicians:Ordering: Aj Ferreiraending: Jos Rivas To: Maya Barron Reviewed by Maya Barron MD on 04/26; All test results are final unless otherwise noted. BHCG, QUANTITATIVE [facility] Ordered by Maya Barron MD [...] are final unless otherwise noted. Reported Physicians [facility] Ordered by Maya Barron MD on 04/18/2020 Collected: 04/18/2020 Reported: 04/18/2020 15:11 Reported Physicians See Note None Note: Reported Physicians:Ordering: Cara Alvarengaending: Maya Barron Reviewed by Maya Barron MD on 04/19; All test results are final unless otherwise noted. ADD ON MICROSCOPIC [facility] Ordered by Maya Barron MD on 04/16/2020 Collected: 04/16/2020 Reported: 04/16/2020 23:51 ADD ON MICROSCOPIC See Note (0-5) None Note: NOTES OTHER/NOT INTERPRETED Bacteria UrnS Ql Micro SMALL AMOUNT Bacteria UrnS Ql Micro SMALL AMOUNT Bacteria UrnS Ql Micro L Bacteria UrnS Ql Micro Bacteria UrnS Ql Micro Bacteria UrnS Ql Micro Bacteria UrnS Ql Micro [id number] Bacteria UrnS Ql Micro Bacteria UrnS Ql [...] are final unless otherwise noted. Reported Physicians [facility] Ordered by Maya Barron MD on 04/16/2020 Collected: 04/16/2020 Reported: 04/16/2020 23:52 Reported Physicians See Note None Note: Reported Physicians:Ordering: Randy Joseending: Alix Jose To: Maya Barron Reviewed by Maya Barron MD on 04/17; All test results are final unless otherwise noted. UA W/ CULTURE IF ABNORMAL [facility] Ordered by Maya Barron MD on 04/16/2020 Collected: 04/16/2020 Reported: 04/16/2020 23:51 Urobilinogen Ur Ql See Note (0.2-1 EU/dl) None Note: 0.2 EU/dl0.2 EU/[id number] E U/dlResponsible Observer: UROBILINOGEN UROBILINOGEN 300.4500 (C) RBC # Ur Strip NEGATIVE (NEGATIVE) None Note: Responsible Observer: BLOOD BLOOD 300.4652 (C) Prot Ur Ql Strip See Note (NEGATIVE) None Note: [id number] EResponsible Observer: PROTEIN PROTEIN 300.3750 (C) Ketones Ur Ql Strip See Note (NEGATIVE) None Note: [id number] ble Observer: KETONE KETONE 300.3900 (C) Bilirub Ur Ql Strip.auto See Note (NEGATIVE) None Note: [id number] EResponsible Observer: BILIRUBIN BILIRUBIN 300.4550 (C) Glucose Ur Strip.auto-mCnc NEGATIVE (NEGATIVE) None Note: Responsible Observer: GLUCOSE GLUC OSE 300.3850 (C) Appearance Ur See Note (CLEAR) None Note: CLEARCLEARLCLEARResponsible Observ er: APPEARANCE APPEARANCE 300.3400 (A) Color Ur See Note None Note: YELLOWYELLOWLYELLOWResponsible Obs erver: COLOR COLOR 300.3330 (A) Leukocyte esterase Ur Ql Strip See Note (NEGATIVE) None Note: [id number] E@DO MICRO!!!!A Culture has been added to this specimen per established criteriaResponsible Observer: LEUKOCYTES LEUKOCYTES 300.3576 (C) Nitrite Ur Ql Strip See Note (NEGATIVE) None Note: [id number] EResponsible Observer: NITRITE NITRITE 300.3652 (B) pH [...] are final unless otherwise noted. Urine culture [facility] Ordered by Maya Barron MD on 04/16/2020 Collected: 04/16/2020 Reported: 04/18/2020 06:47 Urine culture result See Note None Note: Less than 10,000 CFU/MLNormal Comm ensal FloraProbable contaminants no senst done NOTES See Note None Note: @04/16/202350: Urine culture adde d. RFLXG = CULT.ADD. Reviewed by Maya Barron MD on 04/18; All test results are final unless otherwise noted. Reported Physicians [facility] Ordered by Maya Barron MD on 04/16/2020 Collected: 04/16/2020 Reported: 04/18/2020 06:47 Reported Physicians See Note None Note: Reported Physicians:Ordering: Damon , VinodAttending: Damon, VinodCopy To: Maya Barron Reviewed by Maya Barron MD on 04/18; All test results are final unless otherwise noted. CBC W AUTO DIFF [facility] Ordered by Maya Barron MD [...] Auto See Note (0-2) N (Normal) Note: [id number] Ob line server: IG% IG% 100.1375 (B) Hct VFr Bld [...] test results are final unless otherwise noted. CG, [facility] Ordered by Maya Barron [...] are final unless otherwise noted. Reported Physicians [facility] Ordered by Maya Barron MD on 04/16/2020 Collected: 04/16/2020 Reported: 04/16/2020 22:47 Reported Physicians See Note None Note: Reported Physicians:Ordering: Damon , VinodAttending: Damon, VinodCopy To: Maya Barron Reviewed by Maya Barron MD on 04/17; All test results are final unless otherwise noted. CMP [facility] Ordered by Maya Barron MD [...] are final unless otherwise noted. Reported Physicians [facility] Ordered by Maya Barron MD on 04/16/2020 Collected: 04/16/2020 Reported: 04/16/2020 22:44 Reported Physicians See Note None Note: Reported Physicians:Ordering: Damon , VinodAttending: Damon, VinodCopy To: Maya Barron Reviewed by Maya Barron MD on 04/17; All test results are final unless otherwise noted. LIPASE [facility] Ordered by Maya Barron MD on 04/16/2020 Collected: 04/16/2020 Reported: 04/16/2020 22:44 Lipase SerPl-cCnc 107 enzyme_unit_per_liter (73-393) N (Normal) Note: Responsible Observer: Lipase Lipas e 400.2310 (G) Reviewed by Maya Barron MD on 04/17; All test results are final unless otherwise noted. Reported Physicians [facility] Ordered by Maya Barron MD on 04/16/2020 Collected: 04/16/2020 Reported: 04/16/2020 22:44 Reported Physicians See Note None Note: Reported Physicians:Ordering: Damon , VinodAttending: Damon, VinodCopy To: Maya Barron Reviewed by Maya Barron MD on 04/17; All test results are final unless otherwise noted. Type and Screen [facility] Ordered by Maya Barron MD [...] are final unless otherwise noted. Reported Physicians [facility] Ordered by Maya Barron MD on 04/16/2020 Collected: 04/16/2020 Reported: 04/16/2020 23:09 Reported Physicians See Note None Note: Reported Physicians:Ordering: Damon VinodAttending: Damon VinodCopy To: Maya Barron Reviewed by Maya Barron MD on 04/17; All test results are final unless otherwise noted. [facility] Ordered by Maya Barron MD on 04/10/[address] [place] [address], [facility] Collected: 04/10/2020 Reported: 04/11/2020 11:35 tel :[phone] ext. 1500 GRAN# 1.9 /mm3 (2.5-7.5) L [...] test results are final unless otherwise noted. [facility] Ordered by Maya Barron MD on 04/10/[address] [place] [address], [id number] Collected: 04/10/2020 Reported: 04/11/2020 11:35 tel : [...] test results are final unless otherwise noted. [facility] Ordered by Maya Barron MD on 04/10/[address] [place] [address], [id number] Collected: 04/10/2020 Reported: 04/11/2020 11:35 tel :[phone] ext. 1500 TSH 1.336 uIu/mL (0.5-5.8) None Note: Responsible Observer: AW Reviewed by Maya Barron MD on 04/12; All test results are final unless otherwise noted. Urinalysis w/out microscopy Office Lab Ordered by Maya Barron MD on [address] [place] [address], [id number] Specimen Source: Urine Collected: Reported: 2020 11:41 [...] Procedures and Surgical History Includes: Procedures from 02/28/2020 through 02/27/2021 Procedures Code Diagnosis Performing Provider Service Location Service Date REVISIT- office visit KAYLEIGH 34 weeks gestatio n of Maya Barron MD [facility], [facility] 02/23/2021 REVISIT- office visit KAYLEIGH 29 weeks gestatio n of Maya Barron MD [facility], [facility] 01/16/2021 REVISIT- office visit KAYLEIGH 27 weeks gestatio n of Maya Barron MD [facility], [facility] 12/26/2020 REVISIT- office visit KAYLEIGH 23 weeks gestatio n of Maya Barron MD [facility], [facility] 12/05/2020 REVISIT- office visit KAYLEIGH 22 weeks gestatio n of Maya Barron MD [facility], [facility] 11/28/2020 no charge procedure NC Tension-type headache, unspe cified, intractable Maya Barron MD [facility], [facility] 11/21/2020 REVISIT- office visit KAYLEIGH 21 weeks gestatio n of Maya Barron MD [facility], [facility] 11/21/2020 REVISIT- office visit KAYLEIGH 20 weeks gestatio n of Maya Barron MD [facility], [facility] 11/14/2020 no charge procedure NC Palpitations Maya Barron MD [facility], [facility] 11/03/2020 no charge procedure NC Palpitations Maya Barron MD [facility], [facility] 10/31/2020 REVISIT- office visit KAYLEIGH 18 weeks gestatio n of Maya Barron MD [facility], [facility] 10/31/2020 REVISIT- office visit KAYLEIGH 17 weeks gestatio n of Maya Barron MD [facility], [facility] 10/24/2020 no charge procedure NC Palpitations Maya Barron MD [facility], [facility] 10/17/2020 REVISIT- office visit KAYLEIGH 16 weeks gestatio n of Maya Barron MD [facility], [facility] 10/17/2020 Holter Monitor, Physician review & interpretation only 19937 Palpitations Michel Villalba MD [facility] Outpt 10/11/2020 REVISIT- office visit KAYLEIGH 15 weeks gestatio n of Maya Barron MD [facility], [facility] 10/11/2020 REVISIT- office visit KAYLEIGH 13 weeks gestatio n of Maya Barron MD [facility], [facility] 09/27/2020 REVISIT- office visit KAYLEIGH 12 weeks gestatio n of Maya Barron MD [facility], [facility] 09/19/2020 EKG- Electrocardiogram/12 lead 19211 Chest pain, unspe cified [facility], [facility] 09/11/2020 REVISIT- office visit KAYLEIGH 10 weeks gestatio n of Cat [facility], [facility] 09/05/2020 REVISIT- office visit KAYLEIGH 8 weeks gestation of Maya Barron MD [facility], [facility] 08/22/2020 Urinalysis w/o Microscopy (Distinct Seperate service-same da y) 18868 Frequency of micturition- Urinary Frequency Maya Barron MD [facility], [facility] 08/15/2020 RAPID STREP 29151 Acute pharyngitis, unspecified Maya Barron MD [facility], [facility] 08/15/2020 Initial Obstetrical Care Office Visit OB Le ss than 8 weeks gestation of Cat Gutierrez [facility], [facility] 021 Urinalysis w/o Microscopy 42960 Frequency of micturiti on- Urinary Frequency Maya Barron MD [facility], [facility] 07/19/2020 REVISIT- office visit KAYLEIGH Threatened Alicja Barron MD [facility], [facility] 05/26/2020 NO CHARGE- Nurse visit- OB establish [employer] Thr eatened , state, incidental Maya Barron MD [facility], [facility] 020 General Health Panel( CMP, CBC, TSH) 82115 Dysmenorrhe a, unspecified Maya Barron MD [facility], [facility] 04/10/2020 Venipuncture (routine) 44556 Dysmenorrhea, unspecified Mariela Barron MD [facility], [facility] 04/10/2020 Brief Emotional Behavior Assessment 66766 Scre ening for Mental Health/Behavioral Disorder, Unspecified Maya Barron MD [facility], [facility] 04/10/2020 Surgical History Last Updated No [...] 12:00AM Act marquita Encounters Includes: Encounters from 02/28/2020 through 02/27/2021 Encounter Provider Location Date Check-In Time Check-Out Time D iagnosis REVISIT- Routine (OB) Visit Cat Gutierrez [facility], [facility] 02/27/2021 9:52AM 02/23/2021 11:59PM REVISIT- Routine (OB) Visit Maya Barron MD [facility], [facility] 02/23/2021 2:25PM 2:41PM REVISIT- Routine (OB) Visit Maya Barron MD [facility], [facility] 01/16/2021 9:52AM 10:23AM Telehealth communication Maya Barron MD [facility], [facility] 01/09/2021 12/26/2020 10:00AM 10:27AM Generalized Anxiety Disorder, Chest Pain, Iron Deficiency Anemia, Upper Respiratory Infection REVISIT- Routine (OB) Visit Maya Barron MD [facility], [facility] 12/26/2020 9:45AM 10:08AM telephone conversation Michel Villalba MD 1 12/14/2020 9:13AM 12/14/2020 11:59PM Atypical Chest Pain telephone conversation Michel Villalba MD 1 12/14/2020 6:45PM 12/14/2020 11:59PM Hypotension telephone conversation Maya Barron MD [facility] 12/19/2020 12/14/2020 2:14PM 12/14/2020 11:59PM Fracture of Fifth Ce rvical Vertebral Body, History of Psychiatric Disorders, Reactive Airway Disease Problem visit - not contagious Bandar Cleveland PA-C [facility], [facility] 12/14/2020 2:08PM 2:52PM Tension-type Headach e REVISIT- Routine (OB) Visit Maya Barron MD [facility], [facility] 12/05/2020 11:17AM 12:08PM REVISIT- Routine (OB) Visit Maya Barron MD [facility], [facility] 11/28/2020 1:34PM 1:51PM Chronic Care Mgt - Office Visit Maya Barron MD [facility], [facility] 11/21/2020 2:10PM 2:35PM Fracture of Fift h Cervical Vertebral Body, History of Psychiatric Disorders, Reactive Airway Disease REVISIT- Routine (OB) Visit Maya Barron MD [facility], [facility] 11/21/2020 11:33AM 12:01PM REVISIT- Routine (OB) Visit Maya Barron MD [facility], [facility] 11/14/2020 9:55AM 10:36AM REVISIT- Routine (OB) Visit Maya Barron MD [facility], [facility] 11/07/2020 11:42AM 12:02PM OB- ILL VISIT Maya Barron MD [facility], [facility] 11/03/2020 3:45PM 4:29PM , Generalized Anxie ty Disorder, Panic Disorder, Chest Pain Chronic Care Mgt - Office Visit Maya Barron MD [facility], [facility] 11/03/2020 2:37PM 3:38PM Chronic Care Mgt - Office Visit Maya Barron MD [facility], [facility] 10/31/2020 3:23PM 3:24PM Fracture of Fift h Cervical Vertebral Body, History of Psychiatric Disorders, Reactive Airway Disease REVISIT- Routine (OB) Visit Maya Barron MD [facility], [facility] 10/31/2020 9:54AM 10:24AM Chronic Care Mgt - Office Visit Maya Barron MD [facility], [facility] 10/24/2020 2:16PM 11:59PM REVISIT- Routine (OB) Visit Maya Barron MD [facility], [facility] 10/24/2020 10:00AM 10:47AM REVISIT- Routine (OB) Visit Maya Barron MD [facility], [facility] 10/17/2020 11:24AM 12:12PM Chronic Care Mgt - Office Visit Maya Barron MD [facility], [facility] 10/17/2020 11:25AM 12:11PM Fracture of Fift h Cervical Vertebral Body, History of Psychiatric Disorders, Reactive Airway Disease REVISIT- Routine (OB) Visit Maya Barron MD [facility], [facility] 10/11/2020 9:44AM 10:15AM OB- ILL VISIT Maya Barron MD [facility], [facility] 10/04/2020 2:12PM 2:31PM Presyncope Syndrome, Tachyca rdia, Palpitations, Difficulty Breathing (Dyspnea), Weeks of Gestation - 14 REVISIT- Routine (OB) Visit Maya Barron MD [facility], [facility] 09/27/2020 1:36PM 1:59PM telephone conversation Michel Villalba MD 09/19/2020 9:43PM 09/19/2020 11:59PM Atypical Chest Pain REVISIT- Routine (OB) Visit Maya Barron MD [facility], [facility] 09/19/2020 9:48AM 10:14AM REVISIT- Routine (OB) Visit Cat Gutierrez [facility], [facility] 09/11/2020 3:22PM 4:16PM REVISIT- Routine (OB) Visit Cat Gutierrez [facility], [facility] 09/05/2020 9:37AM 10:00AM TCMNV phone call- NO CHARGE Cat Gutierrez [facility] 09/04/2020 09/05/2020 4:54PM 09/05/2020 11:59PM [Patient Encounter] Cat Gutierrez [facility] 08/31/2020 021 2:21PM 08/22/2020 11:59PM telephone conversation Michel Villalba MD 08/2808/22/2020 11:00AM 08/22/2020 11:59PM REVISIT- Routine (OB) Visit Maya Barron MD [facility] 08/22/2020 1:56PM 2:19PM sick visit Maya Barron MD [facility] 0 08/15/2020 9:36AM 10:12AM Upper Respiratory Infection Acute, Pollakiuria Obstetrics/ first visit Cat Gutierrez [facility] 08/09/2020 9:22AM 10:56AM followup [facility] 08/02/2020 10:18AM 11:42AM Generalized Anxiety Disorder , Early Stage, Abdominal Pain telephone conversation Michel Villalba MD 07/26/2020 7:59AM 07/26/2020 11:59PM [Patient Encounter] Cat Gutierrez [facility] 07/28/2020 021 2:20PM 07/26/2020 11:59PM followup Maya Barron MD [facility] 0 07/26/2020 10:39AM 11:02AM , Generalized Anxie ty Disorder sick visit Bandar Cleveland PA-C [facility] 3:36PM 4:30PM Pyrexia followup Maya Barron MD [facility] 0 07/19/2020 10:52AM 11:30AM , Generalized Anxie ty Disorder, Pollakiuria followup Maya Barron MD [facility] 1 09/11/2019 10:43AM 11:14AM Atypical Chest Pain, Adjustm ent Disorder followup Maya Barron MD [facility] 1 08/07/2019 10:43AM 10:59AM Missed followup Maya Barron MD [facility] 05/26 1:45PM 2:11PM with Threatened Problem visit - not contagious Maya Barron MD [facility] 05/24/2020 11:13AM 12:00PM with T hreatened [Patient Encounter] Maya Barron MD 05/24/2020 020 10:17AM 04/19/2020 11:59PM followup Maya Barron MD [facility] 1 11:51AM 12:08PM ANNUAL PE-followup /30 Maya Barron MD [facility] 04/10/2020 8:42AM 9:13AM Routine History and Physical Adult (18 - 64 Yrs), Dysmenorrhea sick visit Maya Barron MD [facility] 0 03/06/2020 3:32PM 3:42PM Sinusitis Insurance Includes: Active Insurance Policies Plan Name Member ID Group # Subscriber Relationship Effective Da greg 1 - MANAGED MEDICAID [facility] [id number] Georgiana Nguyen 07/14/2020 - Unknown Advance Directives Includes: Current Advance DirectivesNo Advance Directives Recorded Health Concerns Includes: Active Health ConcernsNo Active Health Concerns Recorded Goals Includes: Active GoalsNo Active Goals Recorded Interventions Includes: Interventions for active GoalsNo Interventions Recorded Evaluations & Outcomes Includes: Evaluations & Outcomes for active GoalsNo Outcomes Recorded
--- OUTSIDE RECORDS SUMMARY | 2021-04-29 16:43 | CCD ---
Author Author [facility] Organization [facility] Address [address] [place] [address] Phone Care Team Providers Care Holistic Health Practitioner Name Role Phone Anderson GILL, Maya Duke PP [phone] Kimberly White DPM Unavailable Unavailable Reason for [...] Time Location Provider REVISIT- Routine (OB) [facility] 03/06/[facility]21 10:00AM [facility] Beth Barron MD REVISIT- Routine (OB) Visit [facility]ine (OB[facility] REVISIT- Routine (OB) Visit [facility] Encounter Date Community resources No [...] provided today. 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 Patient now 20 and [...] Atopic dermatitis sick visit with Cat Gutierrez [facility] 10/13 Benign pigmented nevus sick visit with Cat Gutierrez [facility] 0 08/31/2019 Female pelvic pain sick visit with Cat Gutierrez [facility] 08/14 Pharyngitis urgent visit with Linda Smith 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 Strain of muscle and tendon of front wall of thorax si ck visit with Cat Gutierrez [facility] 10/30/2018 Fracture of fifth cervical vertebral body No Fault with Wanda ellie De Pazing [facility] 03/04/2018 Late effects of accident No Fault with Cat Betzaida De PazGutierrez [facility] 0 03/04/2018 Instructions Instructions not supported for [...] 08/02/2020 - 08/22/2020 Pro vider: Cat Gutierrez [facility] Diagnosis: as directed - Take 1/2 [...] MG Oral Capsule 12/13/2019 - 12/13/2019 Beth roadalbertoder: Maya Barron MD Diagnosis: 1 PO QID [...] Recorded Vital Signs Includes: Vital Signs from 02/24/2020 through 02/23/2021 Vital Name 02/23/2021 02:35P 01/16/2021 10:00A 12/26/2020 09:58A 12/14/2020 02:15P 12/05/2020 11:47A Blood Pressure Sitting L 100/54 98/62 BP Cuff Size Regular Regular Regular Pulse Rate-Sitting (bpm) 92 95 88 98 80 Respiration Rate (breaths/min) 20 18 20 20 20 Weight (lb) 139 133 130 126.6 126 Blood Pressure Sitting (mmHg) 102/64 102/50 Oxygen Saturation (%) 98 Blood Pressure Sitting R 92/60 Vital Name 11/28/2020 01:44P 11/21/2020 11:41A 11/14/2020 10:01A 11/07/2020 11:52A 11/03/2020 04:01P Blood Pressure Sitting L 100/62 100/60 92/54 100/62 BP Cuff Size Regular Regular Regular Regular Regular Pulse Rate-Sitting (bpm) 88 76 72 80 80 Respiration Rate (breaths/min) 20 20 20 20 20 Weight (lb) 123 122 121 121 117 Blood Pressure Sitting R 100/60 Vital Name 10/31/2020 10:02A 10/24/2020 10:12A 10/17/2020 11:34A 10/11/2020 09:56A 10/04/2020 02:18P Blood Pressure Sitting L 100/60 100/60 110/56 110/60 BP Cuff Size Regular Regular Regular Regular Regular Pulse Rate-Sitting (bpm) 88 80 80 76 116 Respiration Rate (breaths/min) 20 20 20 20 24 Weight (lb) 120 120 118 120 118 Blood Pressure Sitting R 100/60 Vital Name 09/27/2020 01:44P 09/19/2020 09:58A 09/11/2020 03:39P 09/05/2020 09:48A 08/22/2020 02:14P Blood Pressure Sitting L 98/62 100/60 BP Cuff Size Regular Regular Pulse Rate-Sitting (bpm) 76 76 78 Respiration Rate (breaths/min) 20 20 Weight (lb) 120 119 118 119 121 Blood Pressure Sitting (mmHg) 104/60 110/68 112/60 Vital Name 08/15/2020 09:54A 08/09/2020 09:27A 08/02/2020 10:58A 07/26/2020 10:46A 07/25/2020 04:09P Blood Pressure Sitting L 102/62 BP Cuff Size Regular Pulse Rate-Sitting (bpm) 72 72 64 86 80 Respiration Rate (breaths/min) 18 20 20 18 20 Weight (lb) 121 123 124 126 Blood Pressure Sitting (mmHg) 100/72 90/50 98/60 118/76 Oxygen Saturation (%) 98 Temp-Tympanic (F) 97.3 98.2 Height (in) 65 65 Body Mass Index (kg/m2) 20.1 20.6 Body Surface Area (m2) 1.60 1.61 Temp-Oral (F) 98.5 Vital Name 07/19/2020 11:05A 07/11/2020 10:56A 06/07/2020 10:51A 05/26/2020 01:50P 05/24/2020 12:01P Pulse Rate-Sitting (bpm) 114 78 72 86 Respiration Rate (breaths/min) 18 20 20 Weight (lb) 121.6 125 119 118.2 117.8 Blood Pressure Sitting (mmHg) 116/80 120/80 124/80 118/72 110/72 Oxygen Saturation (%) 98 98 Height (in) 65 65 64 Body Mass Index (kg/m2) 20.2 20.8 20.4 Body Surface Area (m2) 1.60 1.62 1.57 Temp-Oral (F) 98.2 98.5 Vital Name 04/19/2020 11:58A 04/10/2020 08:48A 03/06/2020 03:38P 02/25/2020 10:59A Pulse Rate-Sitting (bpm) 87 72 102 72 Respiration Rate (breaths/min) 20 20 20 20 Weight (lb) 116 116.2 Blood Pressure Sitting (mmHg) 108/60 118/82 Oxygen Saturation (%) 97 Height (in) 64 Body Mass Index (kg/m2) 19.9 Body Surface Area (m2) 1.55 Results Includes: Results from 02/24/2020 through 02/23/2021 TROPONIN T [facility] Ordered by Maya Barron MD on 02/22/2021 Collected: 02/22/2021 Reported: 02/22/2021 00:25 TROPONIN T <0.01 NG/ML (0.00 - 0.10) None Note: TROPONIN T0.1 ng/ml Recommended as the clinical threshold value forTroponin T.Responsible Observer: (LBS) Reviewed by Maya Barron MD on 02/23; All test results are final unless otherwise noted. Reported Physicians [facility] Ordered by Maya Barron MD on 02/22/2021 Collected: 02/22/2021 Reported: 02/22/2021 00:26 Reported Physicians See Note None Note: Reported Physicians:Ordering: TURR IN, RICCARDOAttending: HOLLYRIN, RICCARDOConsulting: Rubén BARRON To: ROBERTO, OMIDOCopy To: JESSEE MEJIA Reviewed by Maya Barron MD on 02/23; All test results are final unless otherwise noted. LIPASE SERUM [facility] Ordered by Maya Barron MD on 02/21/2021 Collected: 02/21/2021 Reported: 02/21/2021 21:42 LIPASE 22 U/L (13 - 60) None Note: Responsible Observer: (ABIOLA) Reviewed by Maya Barron MD on 02/23; All test results are final unless otherwise noted. Reported Physicians [facility] Ordered by Maya Barron MD on 02/21/2021 Collected: 02/21/2021 Reported: 02/21/2021 21:42 Reported Physicians See Note None Note: Reported Physicians:Ordering: TURR IN, RICCARDOAttending: HOLLYRIN, RICCARDOConsulting: Rubén BARRON To: HOLLYRIN, RICCARDOCopy To: ROBERTO, JESSEE Reviewed by Maya Barron MD on 02/23; All test results are final unless otherwise noted. TROPONIN T [facility] Ordered by Maya Barron MD on 02/21/2021 Collected: 02/21/2021 Reported: 02/21/2021 21:47 TROPONIN T <0.01 NG/ML (0.00 - 0.10) None Note: TROPONIN T0.1 ng/ml Recommended as the clinical threshold value forTroponin T.Responsible Observer: (DW) Reviewed by Maya Barron MD on 02/23; All test results are final unless otherwise noted. Reported Physicians [facility] Ordered by Maya Barron MD on 02/21/2021 Collected: 02/21/2021 Reported: 02/21/2021 21:47 Reported Physicians See Note None Note: Reported Physicians:Ordering: TURR IN, RICCARDOAttending: HOLLYRIN, RICCARDOConsulting: Rubén BARRON To: HOLLYRIN, RICCARDOCopy To: TURRIN, JESSEE Reviewed by Maya Barron MD on 02/23; All test results are final unless otherwise noted. COMPREHENSIVE METABOLIC PANEL [facility] Ordered by Maya Barron [...] are final unless otherwise noted. Reported Physicians [facility] Ordered by Myaa Barron MD on 02/21/2021 Collected: 02/21/2021 Reported: 02/21/2021 21:47 Reported Physicians See Note None Note: Reported Physicians:Ordering: MARCELINO IN, RICCARDOAttending: JESSEE MEJIAConsulting: Rubén BARRON To: JESSEE MEJIACopy To: JESSEE MEJIA Reviewed by Maya Barron MD on 02/23; All test results are final unless otherwise noted. CBC W/AUTOMATED DIFF [facility] Ordered by Myaa Barron MD on 02/21/2021 Collected: 02/21/2021 Reported: [...] are final unless otherwise noted. Reported Physicians [facility] Ordered by Maya Barron MD on 02/21/2021 Collected: 02/21/2021 Reported: 02/21/2021 21:21 Reported Physicians See Note None Note: Reported Physicians:Ordering: JESSEE HERNANDEZAttending: JESSEE MEJIAConsulting: Rubén BARRON To: Saleem MEJIA To: JESSEE MEJIA Reviewed by Maya Barron MD on 02/23; All test results are final unless otherwise noted. 1HR GESTATIONAL GLUCOSE (50gm) [facility] Ordered by Maya Barron MD on [...] are final unless otherwise noted. Reported Physicians [facility] Ordered by Maya Barron MD on 01/30/2021 Collected: 01/30/2021 Reported: 01/30/2021 14:23 Reported Physicians See Note None Note: Reported Physicians:Ordering: Maya AlvarengaAttending: Maya Barron Reviewed by Maya Barron MD on 01/31; All test results are final unless otherwise noted. Urine culture [facility] Ordered by Maya Barron MD on 01/30/2021 Collected: 01/30/2021 Reported: 02/01/2021 06:50 Urine culture result No growth None Reviewed by Maya Barron MD on 02/02; All test results are final unless otherwise noted. Reported Physicians [facility] Ordered by Maya Barron MD on 01/30/2021 Collected: 01/30/2021 Reported: 02/01/2021 06:50 Reported Physicians See Note None Note: Reported Physicians:Ordering: Maya AlvarengaAttending: Maya Barron Reviewed by Maya Barron MD on 02/02; All test results are final unless otherwise noted. ADD ON MICROSCOPIC [facility] Ordered by Maya Barron MD on 01/30/2021 Collected: 01/30/2021 Reported: 01/30/2021 12:35 ADD ON MICROSCOPIC See Note (0-5) H (High) Note: NOTES OTHER/NOT INTERPRETED Bacteria UrnS Ql Micro MODERATE AMOUNT Bacteria UrnS Ql Micro MODERATE AMOUNT Bacteria UrnS Ql Micro L Bacteria UrnS Ql Micro Bacteria UrnS Ql Micro Bacteria UrnS Ql Micro Bacteria UrnS Ql Micro [id number] Bacteria UrnS Ql Micro Bacteria UrnS Ql [...] Ql Micro Mucous Threads UrnS Ql Micro [id number] Mucous Threads UrnS Ql Micro Mucous Threads UrnS Ql Micro LARGE AMOUNT WBC # Ur Manual 15-20 @01/30/21 1230: UA W/ MICRO added. RFLXG = UMIC.Method of Collection:: VoidedResponsible Observer: WBC WBC 300.5000 (A) Reviewed by Maya Barron MD on 01/31; All test results are final unless otherwise noted. Reported Physicians [facility] Ordered by Maya Barron MD on 01/30/2021 Collected: 01/30/2021 Reported: 01/30/2021 12:36 Reported Physicians See Note None Note: Reported Physicians:Ordering: Cara Alvarengaending: Maya Barron Reviewed by Maya Barron MD on 01/31; All test results are final unless otherwise noted. URINALYSIS [facility] Ordered by Maya Barron MD on 01/30/2021 Collected: 01/30/2021 Reported: 01/30/2021 12:35 Urobilinogen Ur Ql See Note (0.2-1 EU/dl) None Note: 0.2 EU/dl0.2 EU/[id number] E U/dlResponsible Observer: UROBILINOGEN UROBILINOGEN 300.4500 (C) RBC # Ur Strip NEGATIVE (NEGATIVE) None Note: Responsible Observer: BLOOD BLOOD 300.4650 (C) Prot Ur Ql Strip See Note (NEGATIVE) None Note: [id number] ble Observer: PROTEIN PROTEIN 300.3750 (C) Ketones Ur Ql Strip See Note (NEGATIVE) None Note: 15 mg/dL15 mg/[id number] mg/d LResponsible Observer: KETONE KETONE 300.3900 (C) Bilirub Ur Ql Strip.auto See Note (NEGATIVE) None Note: [id number] EResponsible Observer: BILIRUBIN BILIRUBIN 300.4550 (C) Glucose Ur Strip.auto-mCnc NEGATIVE (NEGATIVE) None Note: Responsible Observer: GLUCOSE GLUC OSE 300.3850 (C) Appearance Ur See Note (CLEAR) None Note: CLEARCLEARLCLEARResponsible Observ er: APPEARANCE APPEARANCE 300.3400 (A) Color Ur See Note None Note: YELLOWYELLOWLYELLOWResponsible Obs erver: COLOR COLOR 300.3300 (A) Leukocyte esterase Ur Ql Strip See Note (NEGATIVE) None Note: [id number] E@DO MICRO!!!!Responsible Observer: LEUKOCYTES LEUKOCYTES 300.3575 (C) Nitrite Ur Ql Strip See Note (NEGATIVE) None Note: [id number] EResponsible Observer: NITRITE NITRITE 300.3650 (B) pH [...] are final unless otherwise noted. Reported Physicians [facility] Ordered by Maya Barron MD on 01/30/2021 Collected: 01/30/2021 Reported: 01/30/2021 12:36 Reported Physicians See Note None Note: Reported Physicians:Ordering: Maya AlvarengaAttending: Maya Barron Reviewed by Maya Barron MD on 01/31; All test results are final unless otherwise noted. CBC W AUTO DIFF [facility] Ordered by Maya Barron MD on [...] Auto See Note (0-2) N (Normal) Note: 0.90.0Z13743985830.9Responsible Ob websphere process server developer: IG% IG% 100.1375 (B) Hct [...] results are final unless otherwise noted. [facility] Ordered by Maya Barron MD [...] NOTES See Note None Note: Test(s)[place] [address] Reviewed by Maya Barron MD on 01/12; All test results are final unless otherwise noted. Reported Physicians [facility] Ordered by Maya Barron MD on 01/11/2021 Collected: 01/11/2021 Reported: 01/11/2021 17:30 Reported Physicians See Note None Note: Reported Physicians:Ordering: Les Vanegasding: Fady Raza To: Maya Barron Reviewed by Maya Barron MD on 01/12; All test results are final unless otherwise noted. TROPONIN [facility] Ordered by Maya Barron MD on 01/11/2021 Collected: 01/11/2021 Reported: 01/11/2021 17:30 Troponin I SerPl-mCnc Less Than 0.015 (0.00-0.09) N (Normal) Note: Less than 0.09 NG/ML Negative 0.10 - 0.77 NG/ML High Risk0.78 NG/ML or Greater PositiveThe WHO defined the cutoff (definition for diagnosis of SC)for this method as 0.78 ng/ml.Responsible Observer: Troponin I Troponin I 600.1101 (G) NOTES See Note None Note: Test(s)[place] [address] Reviewed by Maya Barron MD on 01/12; All test results are final unless otherwise noted. Reported Physicians [facility] Ordered by Maya Barron MD on 01/11/2021 Collected: 01/11/2021 Reported: 01/11/2021 17:30 Reported Physicians See Note None Note: Reported Physicians:Ordering: Les Vanegas: Fady Raza To: Maya Barron Reviewed by Maya Barron MD on 01/12; All test results are final unless otherwise noted. TSH w/ reflex to Free T4 [facility] Ordered by Maya Barron MD on 01/11/2021 Collected: 01/11/2021 Reported: 01/11/2021 17:30 TSH SerPl DL<=0.005 mIU/L-aCnc 1.05 MicroInternationalUnitsPerMilliLiter_[Arbitrary_Con (0.35-5. 50) N (Normal) Note: Responsible Observer: TSH TSH 600 .7060 (D) NOTES See Note None Note: Test(s)[place] [address] Reviewed by Maya Barron MD on 01/12; All test results are final unless otherwise noted. Reported Physicians [facility] Ordered by Maya Barron MD on 01/11/2021 Collected: 01/11/2021 Reported: 01/11/2021 17:30 Reported Physicians See Note None Note: Reported Physicians:Ordering: Les Vanegas: Fady Raza To: Maya Barron Reviewed by Maya Barron MD on 01/12; All test results are final unless otherwise noted. UA W/ CULTURE IF ABNORMAL [facility] Ordered by Maya Barron MD on 12/28/2020 Collected: 12/28/2020 Reported: 12/28/2020 21:56 Urobilinogen Ur Ql See Note (0.2-1 EU/dl) None Note: 0.2 EU/dl0.2 EU/[id number] E U/dlResponsible Observer: UROBILINOGEN UROBILINOGEN 300.4500 (C) RBC # Ur Strip NEGATIVE (NEGATIVE) None Note: Responsible Observer: BLOOD BLOOD 300.4652 (C) Prot Ur Ql Strip See Note (NEGATIVE) None Note: [id number] EResponsible Observer: PROTEIN PROTEIN 300.3750 (C) Ketones Ur Ql Strip See Note (NEGATIVE) None Note: [id number] EResponsible Observer: KETONE KETONE 300.3900 (C) Bilirub Ur Ql Strip.auto See Note (NEGATIVE) None Note: [id number] EResponsible Observer: BILIRUBIN BILIRUBIN 300.4550 (C) Glucose Ur Strip.auto-mCnc 250 mg/dl (NEGATIVE) None Note: Responsible Observer: GLUCOSE GLUC OSE 300.3850 (C) Appearance Ur See Note (CLEAR) A (Abnormal) Note: TURBIDTURBIDLTURBIDResponsible Obs erver: APPEARANCE APPEARANCE 300.3400 (A) Color Ur See Note None Note: YELLOWYELLOWLYELLOWResponsible Obs erver: COLOR COLOR 300.3330 (A) Leukocyte esterase Ur Ql Strip See Note (NEGATIVE) None Note: [id number]@DO MICR O!!!!A Culture has been added to this specimen per established criteriaResponsible Observer: LEUKOCYTES LEUKOCYTES 300.3576 (C) Nitrite Ur Ql Strip See Note (NEGATIVE) None Note: [id number] EResponsible Observer: NITRITE NITRITE 300.3652 (B) pH [...] are final unless otherwise noted. Urine culture [facility] Ordered by Maya Barron MD on 12/28/2020 Collected: 12/28/2020 Reported: 12/30/2020 08:03 Urine culture result 25,000 CFU/ML Lactobacilli no senst done None NOTES See Note None Note: @12/28/202155: Urine culture flavia sawyer RFLXG = CULT.ADD. Reviewed by Maya Barron MD on 01/01; All test results are final unless otherwise noted. Reported Physicians [facility] Ordered by Maya Barron MD on 12/28/2020 Collected: 12/28/2020 Reported: 12/30/2020 08:03 Reported Physicians See Note None Note: Reported Physicians:Ordering: Sana Recinosending: Sammie Ann To: Maya Barron Reviewed by Maya Barron MD on 01/01; All test results are final unless otherwise noted. ADD ON MICROSCOPIC [facility] Ordered by Maya Barron MD on [...] Ql Micro Amorph Sed UrnS Ql Micro [id number] Amorph Sed UrnS Ql Micro Amorph Sed UrnS Ql Micro LARGE AMT URATES Bacteria UrnS Ql Micro SMALL AMOUNT Bacteria UrnS Ql Micro SMALL AMOUNT Bacteria UrnS Ql Micro L Bacteria UrnS Ql Micro Bacteria UrnS Ql Micro Bacteria UrnS Ql Micro Bacteria UrnS Ql Micro [id number] Bacteria UrnS Ql Micro Bacteria UrnS Ql [...] are final unless otherwise noted. Reported Physicians [facility] Ordered by Maya Barron MD on 12/28/2020 Collected: 12/28/2020 Reported: 12/28/2020 21:56 Reported Physicians See Note None Note: Reported Physicians:Ordering: Sana Recinosending: Sammie Ann To: Maya Barron Reviewed by Maya Barron MD on 01/01; All test results are final unless otherwise noted. Cepheid SARS/FLU/RSV RT-PCR [facility] Ordered by Maya Barron MD on [...] by FDA under an EUA for [facility] [id number]-lmx CoV RNA Resp Ql ТАТЬЯНА+xawekNMQJUSESENZ-DTY-6 NOT [id number]-RWE-1 NOT [id number] RNA Resp Ql ТАТЬЯНА+probeLNNFLUAInfluenza A Not Det [id number] A Not Vzqvxiza17664-4HUFQX RNA Resp Ql ТАТЬЯНА+probeLNNINBInfluenza B Not [id number] B Not Pdicuhom42354- 2RSV RNA Resp Ql ТАТЬЯНА+probeLNNRSVRSV Not [id number] Not Detected Reviewed by Maya Barron MD on 01/01; All test results are final unless otherwise noted. Reported Physicians [facility] Ordered by Maya Barron MD on 12/28/2020 Collected: 12/28/2020 Reported: 12/28/2020 22:13 Reported Physicians See Note None Note: Reported Physicians:Ordering: Sana Recinosending: Norman Annopy To: Maya Barron Reviewed by Maya Barron MD on 01/01; All test results are final unless otherwise noted. CBC W AUTO DIFF [facility] Ordered by Maya Barron MD on [...] Auto See Note (0-2) N (Normal) Note: [id number] Ob websphere process server developer: IG% IG% 100.1375 (B) Hct [...] results are final unless otherwise noted. [facility] Ordered by Maya Barron MD [...] test results are final unless otherwise noted. [facility] Ordered by Maya Barron MD on 12/28/2020 Collected: 12/28/2020 Reported: 12/28/2020 21:08 Lactic w Rfx (if elevated) 1.5 MilliMolesPerLiter_[Substance_Concentration_Units] (0.5-2.0) N (Normal) Note: Responsible Observer: Lactic Acid Lactic Acid 400.2831 (G) Reviewed by Maya Barron MD on 01/03; All test results are final unless otherwise noted. Blood Culture (Incl Anaerobic)-1 [facility] ab Ordered by Maya Barron MD on 12/28/2020 Collected: 12/28/2020 Reported: 01/02/2021 20:38 Bacteria Bld Cult See Note None Note: NG5DNo growth.A7MY7OSX GROWTH AFTE R 5 DAYS Reviewed by Maya Barron MD on 01/03; All test results are final unless otherwise noted. Blood Culture (Incl Anaerobic)-2 [facility] ab Ordered by Maya Barron MD on 12/28/2020 Collected: 12/28/2020 Reported: 01/02/2021 20:38 Bacteria Bld Cult See Note None Note: NG5DNo growth.H0YL3AXI GROWTH AFTE R 5 DAYS Reviewed by Maya Barron MD on 01/03; All test results are final unless otherwise noted. Reported Physicians [facility] Ordered by Maya Barron MD on 12/28/2020 Collected: 12/28/2020 Reported: 01/02/2021 20:38 Reported Physicians See Note None Note: Reported Physicians:Ordering: Sana Recinosending: Sammie Ann To: Maya Barron Reviewed by Maya Barron MD on 01/03; All test results are final unless otherwise noted. LIPASE SERUM [facility] Ordered by Maya Barron MD on 12/28/2020 Collected: 12/28/2020 Reported: 12/28/2020 04:05 LIPASE 33 U/L (13 - 60) None Note: Responsible Observer: (MLE) Reviewed by Maya Barron MD on 12/29; All test results are final unless otherwise noted. Reported Physicians [facility] Ordered by Maya Barron MD on 12/28/2020 Collected: 12/28/2020 Reported: 12/28/2020 04:06 Reported Physicians See Note None Note: Reported Physicians:Ordering: TURR IN, RICCARDOAttending: TURRIN, RICCARDOConsulting: Rubén BARRON To: TURRIN, RICCARDOCopy To: TURRIN, JESSEE Reviewed by Maya Barron MD on 12/29; All test results are final unless otherwise noted. D-DIMER [facility] Ordered by Maya Barron MD on 12/28/2020 Collected: 12/28/2020 Reported: 12/28/2020 03:46 D-DIMER QUANT 0.36 ug/mL (0.27 - 0.50) None Note: Responsible Observer: (LBS) Reviewed by Maya Barron MD on 12/29; All test results are final unless otherwise noted. Reported Physicians [facility] Ordered by Maya Barron MD on 12/28/2020 Collected: 12/28/2020 Reported: 12/28/2020 03:46 Reported Physicians See Note None Note: Reported Physicians:Ordering: TURR IN, RICCARDOAttending: ROBERTO, RICCARDOConsulting: Rubén BARRON To: TURRIN, RICCARDOCopy To: TURRIN, JESSEE Reviewed by Maya Barron MD on 12/29; All test results are final unless otherwise noted. PT/PTT [facility] Ordered by Maya Barron MD [...] Thrombosis, Pulmonary Embolus, Tissue heart valves, Acute SC Atrial Fibrillation, Valvular heart disease and recurrent Systemic Embolism. - International Normalized Ratio (INR): 2.5 - 3.5 for Mechanical Prosthetic valve.Responsible Observer: (LBS) Reviewed by Maya Barron MD on 12/29; All test results are final unless otherwise noted. Reported Physicians [facility] Ordered by Maya Barron MD on 12/28/2020 Collected: 12/28/2020 Reported: 12/28/2020 03:46 Reported Physicians See Note None Note: Reported Physicians:Ordering: TURR IN, RICCARDOAttending: TURRIN, RICCARDOConsulting: DAVIDSON BARRONYNCopy To: TURRIN, RICCARDOCopy To: ROBERTO JESSEE Reviewed by Maya Barron MD on 12/29; All test results are final unless otherwise noted. CBC W/AUTOMATED DIFF [facility] Ordered by Maya Barron MD [...] are final unless otherwise noted. Reported Physicians [facility] Ordered by Maya Barron MD on 12/28/2020 Collected: 12/28/2020 Reported: 12/28/2020 03:34 Reported Physicians See Note None Note: Reported Physicians:Ordering: TURR IN, RICCARDOAttending: HOLLYRIN, RICCARDOConsulting: Rubén BARRON To: TURRIN, RICCARDOCopy To: JESSEE MEJIA Reviewed by Maya Barron MD on 12/29; All test results are final unless otherwise noted. COMPREHENSIVE METABOLIC PANEL [facility] Ordered by Maya Barron [...] are final unless otherwise noted. Reported Physicians [facility] Ordered by Maya Barron MD on 12/28/2020 Collected: 12/28/2020 Reported: 12/28/2020 04:05 Reported Physicians See Note None Note: Reported Physicians:Ordering: JESSEE HERNANDEZAttending: JESSEE MEJIAConsulting: Rubén BARRON To: JESSEE MEJIACopyifan To: JESSEE MEJIA Reviewed by Maya Barron MD on 12/29; All test results are final unless otherwise noted. TROPONIN T [facility] Ordered by Maya Barron MD on 12/28/2020 Collected: 12/28/2020 Reported: 12/28/2020 04:05 TROPONIN T <0.01 NG/ML (0.00 - 0.10) None Note: TROPONIN T0.1 ng/ml Recommended as the clinical threshold value forTroponin T.Responsible Observer: (MLE) Reviewed by Maya Barron MD on 12/29; All test results are final unless otherwise noted. Reported Physicians [facility] Ordered by Maya Barron MD on 12/28/2020 Collected: 12/28/2020 Reported: 12/28/2020 04:05 Reported Physicians See Note None Note: Reported Physicians:Ordering: TURR IN, RICCARDOAttending: TURRIN, RICCARDOConsulting: MAYA BARRONCopyifan To: TURRIN, RICCARDOCopy To: ROBERTO JESSEE Reviewed by Maya Barron MD on 12/29; All test results are final unless otherwise noted. Cepheid SARS/FLU/RSV RT-PCR [facility] Ordered by Maya Barron MD on [...] by FDA under an EUA for [facility] [id number] CoV RNA Resp Ql ТАТЬЯНА+kveuzXHHRUNVEIUN-VTF-6 NOT [id number]-RZV-0 NOT UDLPMTSB35929-7GTFTD RNA Resp Ql ТАТЬЯНА+probeLNNFLUAInfluenza A Not Det [id number] A Not Xfcqgrbu95875-8VUHWA RNA Resp Ql ТАТЬЯНА+probeLNNINBInfluenza B Not [id number] B Not Yvqqsgzp96823- 2RSV RNA Resp Ql ТАТЬЯНА+probeLNNRSVRSV Not [id number] Not Detected Reviewed by Maya Barron MD on 12/25; All test results are final unless otherwise noted. Reported Physicians [facility] Ordered by Maya Barron MD on 12/23/2020 Collected: 12/23/2020 Reported: 12/23/2020 13:41 Reported Physicians See Note None Note: Reported Physicians:Ordering: Cristino FerreiraAttending: Cristino RivasCopyifan To: Maya Barron Reviewed by Maya Barron MD on 12/25; All test results are final unless otherwise noted. ADD ON MICROSCOPIC [facility] Ordered by Maya Barron MD on 12/23/2020 Collected: 12/23/2020 Reported: 12/23/2020 08:51 ADD ON MICROSCOPIC See Note (0-5) None Note: NOTES OTHER/NOT INTERPRETED Bacteria UrnS Ql Micro MODERATE AMOUNT Bacteria UrnS Ql Micro MODERATE AMOUNT Bacteria UrnS Ql Micro L Bacteria UrnS Ql Micro Bacteria UrnS Ql Micro Bacteria UrnS Ql Micro Bacteria UrnS Ql Micro [id number] Bacteria UrnS Ql Micro Bacteria UrnS Ql [...] are final unless otherwise noted. Reported Physicians [facility] Ordered by Maya Barron MD on 12/23/2020 Collected: 12/23/2020 Reported: 12/23/2020 08:52 Reported Physicians See Note None Note: Reported Physicians:Ordering: Cristino FerreiraAttending: Cristino RivasCopyifan To: Maya Barron Reviewed by Maya Barron MD on 12/25; All test results are final unless otherwise noted. UA W/ CULTURE IF ABNORMAL [facility] Ordered by Maya Barron MD on 12/23/2020 Collected: 12/23/2020 Reported: 12/23/2020 08:51 Urobilinogen Ur Ql See Note (0.2-1 EU/dl) None Note: 1 EU/dl1 EU/[id number] EU/dlRe sponsible Observer: UROBILINOGEN UROBILINOGEN 300.4500 (C) RBC # Ur Strip NEGATIVE (NEGATIVE) None Note: Responsible Observer: BLOOD BLOOD 300.4652 (C) Prot Ur Ql Strip See Note (NEGATIVE) None Note: [id number] ble Observer: PROTEIN PROTEIN 300.3750 (C) Ketones Ur Ql Strip See Note (NEGATIVE) None Note: [id number] EResponsible Observer: KETONE KETONE 300.3900 (C) Bilirub Ur Ql Strip.auto See Note (NEGATIVE) None Note: [id number] EResponsible Observer: BILIRUBIN BILIRUBIN 300.4550 (C) Glucose Ur Strip.auto-mCnc NEGATIVE (NEGATIVE) None Note: Responsible Observer: GLUCOSE GLUC OSE 300.3850 (C) Appearance Ur See Note (CLEAR) A (Abnormal) Note: TURBIDTURBIDLTURBIDResponsible Obs erver: APPEARANCE APPEARANCE 300.3400 (A) Color Ur See Note None Note: YELLOWYELLOWLYELLOWResponsible Obs erver: COLOR COLOR 300.3330 (A) Leukocyte esterase Ur Ql Strip See Note (NEGATIVE) None Note: [id number]@DO MICR O!!!!A Culture has been added to this specimen per established criteriaResponsible Observer: LEUKOCYTES LEUKOCYTES 300.3576 (C) Nitrite Ur Ql Strip See Note (NEGATIVE) None Note: [id number] EResponsible Observer: NITRITE NITRITE 300.3652 (B) pH [...] are final unless otherwise noted. Urine culture [facility] Ordered by Maya Barron MD on [...] are final unless otherwise noted. Reported Physicians [facility] Ordered by Maya Barron MD on 12/23/2020 Collected: 12/23/2020 Reported: 12/24/2020 10:07 Reported Physicians See Note None Note: Reported Physicians:Ordering: Aj Ferreiraending: Jos Rivas To: Maya Barron Reviewed by Maya Barron MD on 12/25; All test results are final unless otherwise noted. MAGNESIUM [facility] Ordered by Maya Barron MD on 12/23/2020 Collected: 12/23/2020 Reported: 12/23/2020 09:11 Magnesium SerPl-mCnc 2.1 MilliGramsPerDeciLiter_[Mass_Concentration_Units] (1.3-2.7) N (Normal) Note: Responsible Observer: Magnesium Ma gnesium 400.3300 (G) NOTES See Note None Note: ADD-ON Reviewed by Maya Barron MD on 12/25; All test results are final unless otherwise noted. Reported Physicians [facility] Ordered by Maya Barron MD on 12/23/2020 Collected: 12/23/2020 Reported: 12/23/2020 09:11 Reported Physicians See Note None Note: Reported Physicians:Ordering: Aj Ferreiraending: Jos Rivas To: Maya Barron Reviewed by Maya Barron MD on 12/25; All test results are final unless otherwise noted. D-DIMER [facility] Ordered by Maya Barron MD on [...] are final unless otherwise noted. Reported Physicians [facility] Ordered by Maya Barron MD on 12/23/2020 Collected: 12/23/2020 Reported: 12/23/2020 09:39 Reported Physicians See Note None Note: Reported Physicians:Ordering: Aj Ferreiraending: Jos Rivas To: Maya Barron Reviewed by Maya Barron MD on 12/25; All test results are final unless otherwise noted. CBC W AUTO DIFF [facility] Ordered by Maya Barron MD on [...] Auto See Note (0-2) N (Normal) Note: [id number] Ob websphere process server developer: IG% IG% 100.1375 (B) Hct [...] results are final unless otherwise noted. [facility] Ordered by Maya Barron MD [...] are final unless otherwise noted. Reported Physicians [facility] Ordered by Maya Barron MD on 12/23/2020 Collected: 12/23/2020 Reported: 12/23/2020 08:29 Reported Physicians See Note None Note: Reported Physicians:Ordering: Aj Ferreiraending: Jos Rivas To: Maya Barron Reviewed by Maya Barron MD on 12/25; All test results are final unless otherwise noted. TROPONIN [facility] Ordered by Maya Barron MD on 12/23/2020 Collected: 12/23/2020 Reported: 12/23/2020 09:39 Troponin I SerPl-mCnc Less Than 0.015 (0.00-0.09) N (Normal) Note: Less than 0.09 NG/ML Negative 0.10 - 0.77 NG/ML High Risk0.78 NG/ML or Greater PositiveThe WHO defined the cutoff (definition for diagnosis of SC)for this method as 0.78 ng/ml.Responsible Observer: Troponin I Troponin I 600.1101 (G) NOTES See Note None Note: ADD-ON Reviewed by Maya Barron MD on 12/25; All test results are final unless otherwise noted. Reported Physicians [facility] Ordered by Maya Barron MD on 12/23/2020 Collected: 12/23/2020 Reported: 12/23/2020 09:39 Reported Physicians See Note None Note: Reported Physicians:Ordering: Cristino FerreiraAttending: Jos Rivas To: Maya Barron Reviewed by Maya Barron MD on 12/25; All test results are final unless otherwise noted. LIPASE SERUM [facility] Ordered by Maya Barron MD on 12/16/2020 Collected: 12/16/2020 Reported: 12/16/2020 16:29 LIPASE 27 U/L (13 - 60) None Note: Responsible Observer: (DW) Reviewed by Maya Barron MD on 12/18; All test results are final unless otherwise noted. Reported Physicians [facility] Ordered by Maya Barron MD on 12/16/2020 Collected: 12/16/2020 Reported: 12/16/2020 16:29 Reported Physicians See Note None Note: Reported Physicians:Ordering: VENUS ALONSOAttending: ALLYN PAPPASConsulting: Rubén BARRON To: Miguel Gonsalez To: ALLYN PAPPAS Reviewed by Maya Barron MD on 12/18; All test results are final unless otherwise noted. TROPONIN T [facility] Ordered by Maya Barron MD on 12/16/2020 Collected: 12/16/2020 Reported: 12/16/2020 16:30 TROPONIN T <0.01 NG/ML (0.00 - 0.10) None Note: TROPONIN T0.1 ng/ml Recommended as the clinical threshold value forTroponin T.Responsible Observer: (DW) Reviewed by Maya Barron MD on 12/18; All test results are final unless otherwise noted. Reported Physicians [facility] Ordered by Maya Barron MD on 12/16/2020 Collected: 12/16/2020 Reported: 12/16/2020 16:30 Reported Physicians See Note None Note: Reported Physicians:Ordering: VENUS ALONSOAttending: ALLYN PAPPASConsulting: Rubén BARRON To: Miguel Gonsalez To: ALLYN PAPPAS Reviewed by Maya Barron MD on 12/18; All test results are final unless otherwise noted. TSH HIGHLY SENSITIVE [facility] Ordered by Maya Barron MD on 12/16/2020 Collected: 12/16/2020 Reported: 12/16/2020 17:28 TSH 1.41 uIU/mL (0.47 - 5.01) None Note: Responsible Observer: (ABIOLA) Reviewed by Maya Barron MD on 12/18; All test results are final unless otherwise noted. Reported Physicians [facility] Ordered by Maya Barron MD on 12/16/2020 Collected: 12/16/2020 Reported: 12/16/2020 17:28 Reported Physicians See Note None Note: Reported Physicians:Ordering: VENUS ALONSOAttending: ALLYN PAPPASConsulting: Rubén BARRON To: Miguel Gonsalez To: ALLYN PAPPAS Reviewed by Maya Barron MD on 12/18; All test results are final unless otherwise noted. PT/PTT [facility] Ordered by Maya Barron MD [...] Thrombosis, Pulmonary Embolus, Tissue heart valves, Acute SC Atrial Fibrillation, Valvular heart disease and recurrent Systemic Embolism. - International Normalized Ratio (INR): 2.5 - 3.5 for Mechanical Prosthetic valve.Responsible Observer: (ABIOLA) Reviewed by Maya Barron MD on 12/18; All test results are final unless otherwise noted. Reported Physicians [facility] Ordered by Maya Barron MD on 12/16/2020 Collected: 12/16/2020 Reported: 12/16/2020 16:30 Reported Physicians See Note None Note: Reported Physicians:Ordering: Sunshine ALONSOending: ALLYN PAPPASConsulting: MAYA BARRONCopyifan To: Miguel Gonsalez To: ALLYN PAPPAS Reviewed by Maya Barron MD on 12/18; All test results are final unless otherwise noted. CBC W/AUTOMATED DIFF [facility] Ordered by Maya Barron MD [...] are final unless otherwise noted. Reported Physicians [facility] Ordered by Maya Barron MD on 12/16/2020 Collected: 12/16/2020 Reported: 12/16/2020 16:00 Reported Physicians See Note None Note: Reported Physicians:Ordering: Sunshine ALONSOending: ALLYN PAPPASConsulting: Rubén BARRON To: Miguel Gonsalez To: ALLYN PAPPAS Reviewed by Maya Barron MD on 12/18; All test results are final unless otherwise noted. COMPREHENSIVE METABOLIC PANEL [facility] Ordered by Maya Barron [...] are final unless otherwise noted. Reported Physicians [facility] Ordered by Maya Barron MD on 12/16/2020 Collected: 12/16/2020 Reported: 12/16/2020 16:30 Reported Physicians See Note None Note: Reported Physicians:Ordering: Sunshine ALONSOending: ALLYN PAPPASConsulting: Rubén BARRON To: Miguel Gonsalez To: ALLYN PAPPAS Reviewed by Maya Barron MD on 12/18; All test results are final unless otherwise noted. CBC W AUTO DIFF [facility] Ordered by Maya Barron MD on [...] Auto See Note (0-2) N (Normal) Note: [id number] Ob websphere process server developer: IG% IG% 100.1375 (B) Hct [...] results are final unless otherwise noted. PT/PTT [facility] Ordered by Maya Barron MD on [...] results are final unless otherwise noted. [facility] Ordered by Maya Barron MD [...] are final unless otherwise noted. Reported Physicians [facility] Ordered by Maya Barron MD on 12/13/2020 Collected: 12/13/2020 Reported: 12/13/2020 19:02 Reported Physicians See Note None Note: Reported Physicians:Ordering: Conchis Omerending: Kevin Orozco To: Maya Barron Reviewed by Maya Barron MD on 12/15; All test results are final unless otherwise noted. TSH [facility] Ordered by Maya Barron MD on 12/13/2020 Collected: 12/13/2020 Reported: 12/13/2020 19:02 TSH SerPl DL<=0.005 mIU/L-aCnc 1.02 MicroInternationalUnitsPerMilliLiter_[Arbitrary_Con (0.35-5. 50) N (Normal) Note: Responsible Observer: TSH TSH 600 .7055 (D) Reviewed by Maya Barron MD on 12/15; All test results are final unless otherwise noted. Reported Physicians [facility] Ordered by Maya Barron MD on 12/13/2020 Collected: 12/13/2020 Reported: 12/13/2020 19:02 Reported Physicians See Note None Note: Reported Physicians:Ordering: Edgar Omerttending: Kevin Orozco To: Maya Barron Reviewed by Maya Barron MD on 12/15; All test results are final unless otherwise noted. TROPONIN [facility] Ordered by Maya Barron MD on 12/13/2020 Collected: 12/13/2020 Reported: 12/13/2020 19:02 Troponin I SerPl-mCnc Less Than 0.015 (0.00-0.09) N (Normal) Note: Less than 0.09 NG/ML Negative 0.10 - 0.77 NG/ML High Risk0.78 NG/ML or Greater PositiveThe WHO defined the cutoff (definition for diagnosis of SC)for this method as 0.78 ng/ml.Responsible Observer: Troponin I Troponin I 600.1101 (G) Reviewed by Maya Barron MD on 12/15; All test results are final unless otherwise noted. Reported Physicians [facility] Ordered by Maya Barron MD on 12/13/2020 Collected: 12/13/2020 Reported: 12/13/2020 19:02 Reported Physicians See Note None Note: Reported Physicians:Ordering: Edgar Omerttending: Kevin Orozco To: Maya Barron Reviewed by Maya Barron MD on 12/15; All test results are final unless otherwise noted. UA W/ CULTURE IF ABNORMAL [facility] Ordered by Maya Barron MD on 12/13/2020 Collected: 12/13/2020 Reported: 12/13/2020 18:32 Urobilinogen Ur Ql See Note (0.2-1 EU/dl) None Note: 0.2 EU/dl0.2 EU/[id number] E U/dlResponsible Observer: UROBILINOGEN UROBILINOGEN 300.4500 (C) RBC # Ur Strip NEGATIVE (NEGATIVE) None Note: Responsible Observer: BLOOD BLOOD 300.4652 (C) Prot Ur Ql Strip See Note (NEGATIVE) None Note: [id number] EResponsible Observer: PROTEIN PROTEIN 300.3750 (C) Ketones Ur Ql Strip See Note (NEGATIVE) None Note: [id number] EResponsible Observer: KETONE KETONE 300.3900 (C) Bilirub Ur Ql Strip.auto See Note (NEGATIVE) None Note: [id number] EResponsible Observer: BILIRUBIN BILIRUBIN 300.4550 (C) Glucose Ur Strip.auto-mCnc NEGATIVE (NEGATIVE) None Note: Responsible Observer: GLUCOSE GLUC OSE 300.3850 (C) Appearance Ur See Note (CLEAR) None Note: CLEARCLEARLCLEARResponsible Observ er: APPEARANCE APPEARANCE 300.3400 (A) Color Ur See Note None Note: YELLOWYELLOWLYELLOWResponsible Obs erver: COLOR COLOR 300.3330 (A) Leukocyte esterase Ur Ql Strip See Note (NEGATIVE) None Note: [id number]@DO MICR O!!!!A Culture has been added to this specimen per established criteriaResponsible Observer: LEUKOCYTES LEUKOCYTES 300.3576 (C) Nitrite Ur Ql Strip See Note (NEGATIVE) None Note: [id number] EResponsible Observer: NITRITE NITRITE 300.3652 (B) pH [...] are final unless otherwise noted. Urine culture [facility] Ordered by Maya Barron MD on 12/13/2020 Collected: 12/13/2020 Reported: 12/14/2020 13:24 Bacteria Ur Cult See Note None Note: NGNo growth.L1NG NOTES See Note None Note: @12/13/20 1832: Urine culture adde d. RFLXG = CULT.ADD. Reviewed by Maya Barron MD on 12/15; All test results are final unless otherwise noted. Reported Physicians [facility] Ordered by Maya Barron MD on 12/13/2020 Collected: 12/13/2020 Reported: 12/14/2020 13:24 Reported Physicians See Note None Note: Reported Physicians:Ordering: Conchis Omerending: Kevin Orozco To: Maya Barron Reviewed by Maya Barron MD on 12/15; All test results are final unless otherwise noted. ADD ON MICROSCOPIC [facility] Ordered by Maya Barron MD on 12/13/2020 Collected: 12/13/2020 Reported: 12/13/2020 18:32 ADD ON MICROSCOPIC See Note (0-5) None Note: NOTES OTHER/NOT INTERPRETED Bacteria UrnS Ql Micro MODERATE AMOUNT Bacteria UrnS Ql Micro MODERATE AMOUNT Bacteria UrnS Ql Micro L Bacteria UrnS Ql Micro Bacteria UrnS Ql Micro Bacteria UrnS Ql Micro Bacteria UrnS Ql Micro [id number] Bacteria UrnS Ql Micro Bacteria UrnS Ql [...] are final unless otherwise noted. Reported Physicians [facility] Ordered by Maya Barron MD on 12/13/2020 Collected: 12/13/2020 Reported: 12/13/2020 18:33 Reported Physicians See Note None Note: Reported Physicians:Ordering: Conchis Omerending: Kevin Orozco To: Maya Barron Reviewed by Maya Barron MD on 12/15; All test results are final unless otherwise noted. TROPONIN T [facility] Ordered by Maya Barron MD on 12/09/2020 Collected: 12/09/2020 Reported: 12/09/2020 01:32 TROPONIN T <0.01 NG/ML (0.00 - 0.10) None Note: TROPONIN T0.1 ng/ml Recommended as the clinical threshold value forTroponin T.Responsible Observer: (AB) Reviewed by Maya Barron MD on 12/12; All test results are final unless otherwise noted. Reported Physicians [facility] Ordered by Maya Barron MD on 12/09/2020 Collected: 12/09/2020 Reported: 12/09/2020 01:32 Reported Physicians See Note None Note: Reported Physicians:Ordering: MARQUISE TOMLINSON CAttending: MARQUISE SOTOConsulting: Rubén BARRON To: Clare SOTO To: MARQUISE SOTO Reviewed by Maya Barron MD on 12/12; All test results are final unless otherwise noted. TROPONIN T [facility] Ordered by Maya Barron MD on 12/08/2020 Collected: 12/08/2020 Reported: 12/08/2020 22:36 TROPONIN T <0.01 NG/ML (0.00 - 0.10) None Note: TROPONIN T0.1 ng/ml Recommended as the clinical threshold value forTroponin T.Responsible Observer: (AB) Reviewed by Maay Barron MD on 12/12; All test results are final unless otherwise noted. Reported Physicians [facility] Ordered by Maya Barron MD on 12/08/2020 Collected: 12/08/2020 Reported: 12/08/2020 22:36 Reported Physicians See Note None Note: Reported Physicians:Ordering: MARQUISE TOMLINSON CAttending: MARQUISE SOTOConsulting: Rubén BARRON To: MARQUISE SOTOCopyifan To: MARQUISE SOTO Reviewed by Maya Barron MD on 12/12; All test results are final unless otherwise noted. COMPREHENSIVE METABOLIC PANEL [facility] Ordered by Maya Barron [...] are final unless otherwise noted. Reported Physicians [facility] Ordered by Maya Barron MD on 12/08/2020 Collected: 12/08/2020 Reported: 12/08/2020 22:36 Reported Physicians See Note None Note: Reported Physicians:Ordering: MARQUISE TOMLINSON CAttending: MARQUISE SOTOConsulting: Rubén BARRON To: MARQUISE SOTOCopy To: MARQUISE SOTO Reviewed by Maya Barron MD on 12/12; All test results are final unless otherwise noted. LIPASE SERUM [facility] Ordered by Maya Barron MD on 12/08/2020 Collected: 12/08/2020 Reported: 12/08/2020 22:32 LIPASE 33 U/L (13 - 60) None Note: Responsible Observer: (AB) Reviewed by Maya Barron MD on 12/12; All test results are final unless otherwise noted. Reported Physicians [facility] Ordered by Maya Barron MD on 12/08/2020 Collected: 12/08/2020 Reported: 12/08/2020 22:32 Reported Physicians See Note None Note: Reported Physicians:Ordering: MARQUISE TOMLINSON CAttending: MARQUISE SOTOConsulting: Rubén BARRON To: Claer SOTO To: MARQUISE SOTO Reviewed by Maya Barron MD on 12/12; All test results are final unless otherwise noted. TROPONIN [facility] Ordered by Maya Barron MD on 12/01/2020 Collected: 12/01/2020 Reported: 12/01/2020 18:18 Troponin I SerPl-mCnc Less Than 0.015 (0.00-0.09) N (Normal) Note: Less than 0.09 NG/ML Negative 0.10 - 0.77 NG/ML High Risk0.78 NG/ML or Greater PositiveThe WHO defined the cutoff (definition for diagnosis of SC)for this method as 0.78 ng/ml.Responsible Observer: Troponin I Troponin I 600.1101 (G) Reviewed by Maya Barron MD on 12/04; All test results are final unless otherwise noted. Reported Physicians [facility] Ordered by Maya Barron MD on 12/01/2020 Collected: 12/01/2020 Reported: 12/01/2020 18:19 Reported Physicians See Note None Note: Reported Physicians:Ordering: Choco KaurAttending: Adam Pardo To: Maya Barron Reviewed by Maya Barron MD on 12/04; All test results are final unless otherwise noted. CBC W AUTO DIFF [facility] Ordered by Maya Barron MD on [...] Auto See Note (0-2) N (Normal) Note: 0.40.0F77682740234.4Responsible Ob websphere process server developer: IG% IG% 100.1375 (B) Hct [...] results are final unless otherwise noted. [facility] Ordered by Maya Barron MD [...] results are final unless otherwise noted. D-DIMER [facility] Ordered by Maya Barron MD on [...] are final unless otherwise noted. Reported Physicians [facility] Ordered by Maya Barron MD on 12/01/2020 Collected: 12/01/2020 Reported: 12/01/2020 18:19 Reported Physicians See Note None Note: Reported Physicians:Ordering: Sara Kaurending: Adam Pardo To: Maya Barron Reviewed by Maya Barron MD on 12/04; All test results are final unless otherwise noted. Cepheid CT/NG RT-PCR [facility] Ordered by Maya Barron MD on [...] may result in failure to detect the targetorganisms.30520-1F trach DNA Vag Ql ТАТЬЯНА+probeLNCHLAMNC. trachomatis NOT [id number]. trachomatis NOT [id number] gonorrhoea rRNA Vag Ql ТАТЬЯНА+probeLNNEIGNN.gonorrhoeae NOT [id number].gonorrhoeae NOT DETECTED Reviewed by Maya Barron MD on 11/29; All test results are final unless otherwise noted. Reported Physicians [facility] Ordered by Maya Barron MD on 11/29/2020 Collected: 11/29/2020 Reported: 11/29/2020 07:03 Reported Physicians See Note None Note: Reported Physicians:Ordering: Estela SamuelAttending: Vianey Up To: Maya Barron Reviewed by Maya Barron MD on 11/29; All test results are final unless otherwise noted. AFFIRM [facility] Ordered by Maay Barron MD on 11/29/2020 Collected: 11/29/2020 Reported: 11/30/2020 13:21 Dionna species DNA Probe NOT DETECTED (NOT DETECTED) None Note: THIS TEST WAS PERFORMED AT:[employer] [facility]([place] [id number] ONEILLesponsible Observer: Dionna DNA Dionna species DNA Probe [id number] 913.2350 ([employer]) Gardnerella DNA Probe DETECTED (NOT DETECTED) H (High) Note: Increased levels of G. vaginalis m ay not be significantin the absence of signs and symptoms of bacterialvaginosis.Responsible Observer: Gardnerella DNA Gardnerella DNA Probe [id number] 913.2345 ([employer]) Trichomonas DNA Probe NOT DETECTED (NOT DETECTED) None Note: Responsible Observer: Trichomonas DNA Trichomonas DNA Probe [id number] 913.2340 ([employer]) Reviewed by Maya Barron MD on 12/01; All test results are final unless otherwise noted. Reported Physicians [facility] Ordered by Maya Barron MD on 11/29/2020 Collected: 11/29/2020 Reported: 11/30/2020 13:21 Reported Physicians See Note None Note: Reported Physicians:Ordering: Estela SamuelAttending: Vianey Up To: Maya Barron Reviewed by Maya Barron MD on 12/01; All test results are final unless otherwise noted. ADD ON MICROSCOPIC [facility] Ordered by Maya Barron MD on [...] are final unless otherwise noted. Reported Physicians [facility] Ordered by Maya Barron MD on 11/29/2020 Collected: 11/29/2020 Reported: 11/29/2020 04:51 Reported Physicians See Note None Note: Reported Physicians:Ordering: Estela SamuelAttending: Vianey Up To: Maya Barron Reviewed by Maya Barron MD on 11/29; All test results are final unless otherwise noted. UA W/ CULTURE IF ABNORMAL [facility] Ordered by Maya Barron MD on 11/29/2020 Collected: 11/29/2020 Reported: 11/29/2020 04:49 Urobilinogen Ur Ql See Note (0.2-1 EU/dl) None Note: 0.2 EU/dl0.2 EU/[id number] E U/dlResponsible Observer: UROBILINOGEN UROBILINOGEN 300.4500 (C) RBC # Ur Strip NEGATIVE (NEGATIVE) None Note: Responsible Observer: BLOOD BLOOD 300.4652 (C) Prot Ur Ql Strip See Note (NEGATIVE) None Note: [id number] EResponsible Observer: PROTEIN PROTEIN 300.3750 (C) Ketones Ur Ql Strip See Note (NEGATIVE) None Note: [id number] EResponsible Observer: KETONE KETONE 300.3900 (C) Bilirub Ur Ql Strip.auto See Note (NEGATIVE) None Note: [id number] EResponsible Observer: BILIRUBIN BILIRUBIN 300.4550 (C) Glucose Ur Strip.auto-mCnc NEGATIVE (NEGATIVE) None Note: Responsible Observer: GLUCOSE GLUC OSE 300.3850 (C) Appearance Ur See Note (CLEAR) None Note: CLEARCLEARLCLEARResponsible Observ er: APPEARANCE APPEARANCE 300.3400 (A) Color Ur See Note None Note: YELLOWYELLOWLYELLOWResponsible Obs erver: COLOR COLOR 300.3330 (A) Leukocyte esterase Ur Ql Strip See Note (NEGATIVE) None Note: [id number]@DO MICR O!!!!A Culture has been added to this specimen per established criteriaResponsible Observer: LEUKOCYTES LEUKOCYTES 300.3576 (C) Nitrite Ur Ql Strip See Note (NEGATIVE) None Note: [id number] EResponsible Observer: NITRITE NITRITE 300.3652 (B) pH [...] are final unless otherwise noted. Urine culture [facility] Ordered by Maya Barron MD on 11/29/2020 Collected: 11/29/2020 Reported: 11/30/2020 07:23 Bacteria Ur Cult See Note None Note: NGNo growth.L1NG NOTES See Note None Note: @11/29/20 0450: Urine culture adde d. RFLXG = CULT.ADD. Reviewed by Maya Barron MD on 12/01; All test results are final unless otherwise noted. Reported Physicians [facility] Ordered by Maya Barron MD on 11/29/2020 Collected: 11/29/2020 Reported: 11/30/2020 07:23 Reported Physicians See Note None Note: Reported Physicians:Ordering: Gideon Samuelending: Vianey Up To: Maya Barron Reviewed by Maya Barron MD on 12/01; All test results are final unless otherwise noted. TROPONIN [facility] Ordered by Maya Barron MD on 11/20/2020 Collected: 11/20/2020 Reported: 11/20/2020 20:04 Troponin I SerPl-mCnc Less Than 0.015 (0.00-0.09) N (Normal) Note: Less than 0.09 NG/ML Negative 0.10 - 0.77 NG/ML High Risk0.78 NG/ML or Greater PositiveThe WHO defined the cutoff (definition for diagnosis of SC)for this method as 0.78 ng/ml.Responsible Observer: Troponin I Troponin I 600.1101 (G) Reviewed by Maya Barron MD on 11/22; All test results are final unless otherwise noted. Reported Physicians [facility] Ordered by Maya Barron MD on 11/20/2020 Collected: 11/20/2020 Reported: 11/20/2020 20:05 Reported Physicians See Note None Note: Reported Physicians:Ordering: Les Vanegas AAttending: Fady Raza To: Maya Barron Reviewed by Maya Barron MD on 11/22; All test results are final unless otherwise noted. Cepheid SARS/FLU/RSV RT-PCR [facility] Ordered by Maya Barron MD on [...] by FDA under an EUA for use by[facility] centerAeroSurgicalqdpmccusumgc80774-9SFKS-lkr CoV RNA Resp Ql ТАТЬЯНА+sramrLCILAZSLIAT-LXO-6 NOT [id number]-OHP-7 NOT VQUSOKLF40620-1DEAOX RNA Resp Ql ТАТЬЯНА+probeLNNFLUAInfluenza A Not Det [id number] A Not Chukaslj89524-2CSVBU RNA Resp Ql ТАТЬЯНА+probeLNNINBInfluenza B Not [id number] B Not Gpzfyiqk89265- 2RSV RNA Resp Ql ТАТЬЯНА+probeLNNRSVRSV Not [id number] Not Detected Reviewed by Maya Barron MD on 11/20; All test results are final unless otherwise noted. Reported Physicians [facility] Ordered by Maya Barron MD on 11/18/2020 Collected: 11/18/2020 Reported: 11/18/2020 23:58 Reported Physicians See Note None Note: Reported Physicians:Ordering: Aj Snowending: Jos Castellanos To: Maya Barron Reviewed by Maya Barron MD on 11/20; All test results are final unless otherwise noted. URINE DRUG SCREEN -([facility]) [facility] Ordered by Maya Barron MD on 11/17/2020 Collected: 11/17/2020 Reported: 11/17/2020 14:19 PCP Ur Ql Scn>25 ng/mL See Note (Cutoff 25) None Note: [id number] E@Reenter manual test result: NEGATIVE@by Claudia Tello at 11/17/20 1414.Responsible Observer: PCP Urine Phencyclidine (PCP) Scrn 400.5120 (A) THC Ur Ql Scn>50 ng/mL See Note (Cutoff 50) None Note: [id number] EResponsible Observer: Marijuana (THC) Ur Marijuana (THC) Screen 400.5110 (A) Benzodiaz Ur Ql Scn See Note (Cutoff 150) None Note: [id number] E@Reenter manual test result: NEGATIVE@by Claudia Tello at 11/17/20 1418.Responsible Observer: Benzodiazepines Urine Benzodiazepines Screen 400.5170 (A) Opiates Ur Ql Scn See Note (Cutoff 100) None Note: [id number] E@Reenter manual test result: NEGATIVE@by Claudia Tello at 11/17/201417.Responsible Observer: Opiates Urine Opiates Screen 400.5150 (A) Tricyclics Ur Ql Scn See Note (Cutoff 300) None Note: [id number] E@Reenter manual test result: NEGATIVE@by Claudia Tello at 11/17/20 141.Responsible Observer: TCA Ur Tricyclic Antidepressants 400.5180 (A) Cocaine Ur Ql Scn See Note (Cutoff 150) None Note: [id number] E@Reenter manual test result: NEGATIVE@by Claudia Tello at 11/17/201416.Responsible Observer: Cocaine Urine Cocaine Screen 400.5130 (A) Propoxyph+Nor Ur Ql Scn See Note (Cutoff 300) None Note: [id number] E@Reenter manual test result: NEGATIVE@by Claudia Tello at 11/17/201417.Responsible Observer: Propoxyphene Urine Propoxyphene Screen 400.5220 (A) Methadone Ur Ql Scn See Note (Cutoff 200) None Note: [id number] E@Reenter manual test result: NEGATIVE@by Claudia Tello at 11/17/20 141.Responsible Observer: Methadone Urine Methadone Screen 400.5190 (A) Methamphet Ur Ql Scn See Note (Cutoff 500) None Note: [id number] E@Reenter manual test result: NEGATIVE@by Claudia Tello at 11/17/20 141.Responsible Observer: Methamphetamine Urine Methamphetamines Screen 400.5140 (A) oxyCODONE Ur Ql Scn See Note (Cutoff 100) None Note: [id number] E@Reenter manual test result: NEGATIVE@by Claudia Tello at 11/17/20 141.Responsible Observer: Oxycodone Urine Oxycodone Screen 400.5210 (A) Buprenorphine Ur Ql See Note (Cutoff 10) None Note: [id number] E@Reenter manual test result: NEGATIVE@by Claudia Tello at 11/17/20 1419.Responsible Observer: Buprenorphine Urine Buprenorphine Screen 400.5230 (A) Amphetamines Ur Ql Scn>500 ng/mL See Note (Cutoff 500) None Note: [id number] E@Reenter manual test result: NEGATIVE@by Claudia Tlelo at 11/17/20 1418.Responsible Observer: Amphetamines Urine Amphetamines Screen 400.5160 (A) Barbiturates Ur Ql Scn>200 ng/mL See Note (Cutoff 200) None Note: [id number] E@Reenter manual test result: NEGATIVE@by Claudia Tello at 11/17/20 1418.Responsible Observer: Barbiturates Urine Barbiturates 400.5200 (A) Reviewed by Maya Barron MD on 11/20; All test results are final unless otherwise noted. FREE T4 (LAB) [facility] Ordered by Maya Barron MD on 11/17/2020 Collected: 11/17/2020 Reported: 11/17/2020 14:34 T4 Free SerPl-mCnc 0.78 NanoGramsPerDeciLiter_[Mass_Concentration_Units] (0.89-1.76) L (Low) Note: Responsible Observer: FREE T4 Free Thyroxine 600.7005 (D) Reviewed by Maya Barron MD on 11/20; All test results are final unless otherwise noted. Reported Physicians [facility] Ordered by Maya Barron MD on 11/17/2020 Collected: 11/17/2020 Reported: 11/17/2020 14:34 Reported Physicians See Note None Note: Reported Physicians:Ordering: Maya AlvarengaAttending: Maya Barron Reviewed by Maya Barron MD on 11/20; All test results are final unless otherwise noted. TSH [facility] Ordered by Maya Barron MD on 11/17/2020 Collected: 11/17/2020 Reported: 11/17/2020 14:34 TSH SerPl DL<=0.005 mIU/L-aCnc 1.38 MicroInternationalUnitsPerMilliLiter_[Arbitrary_Con (0.35-5. 50) N (Normal) Note: Responsible Observer: TSH TSH 600 .7055 (D) Reviewed by Maya Barron MD on 11/20; All test results are final unless otherwise noted. Reported Physicians [facility] Ordered by Maya Barron MD on 11/17/2020 Collected: 11/17/2020 Reported: 11/17/2020 14:34 Reported Physicians See Note None Note: Reported Physicians:Ordering: Maya AlvarengaAttending: Maya Barron Reviewed by Maya Barron MD on 11/20; All test results are final unless otherwise noted. IRON [facility] Ordered by Maya Barron MD on 11/17/2020 Collected: 11/17/2020 Reported: 11/17/2020 14:34 Iron SerPl-mCnc 39 (50-170) L (Low) Note: Iron values may be falsely elevate d in serum samples frompatients treated with anticoagulants (e.g., hemodialysispatients)Responsible Observer: Iron Level Iron Level 400.9002 (A) Reviewed by Maya Barron MD on 11/20; All test results are final unless otherwise noted. Reported Physicians [facility] Ordered by Maya Barron MD on 11/17/2020 Collected: 11/17/2020 Reported: 11/17/2020 14:34 Reported Physicians See Note None Note: Reported Physicians:Ordering: Maya AlvarengaAttending: Maya Barrno Reviewed by Maya Barron MD on 11/20; All test results are final unless otherwise noted. CBC W AUTO DIFF [facility] Ordered by Maya Barron MD on [...] Auto See Note (0-2) N (Normal) Note: [id number] Ob websphere process server developer: IG% IG% 100.1375 (B) Hct [...] test results are final unless otherwise noted. [address] [facility] Ordered by Maya Barron MD on [...] blood glucose control.* High risk of developing shelter complications such asretinopathy, nephropathy, neuropathy, cardiopathy, etc. [...] results are final unless otherwise noted. [facility] Ordered by Maya Barron MD [...] final unless otherwise noted. Vitamin D 25-OH [facility] Ordered by Maya Barron MD on [...] VIT D, (D2,D3), LC/MS/MS is recommended: ordercode 78333 (patients >2yrs).See Note 1Note 1For additional information, please refer tohttp://education.[employer]/faq/HAG435(This link is being provided for informational/educational purposes only.)THIS TEST WAS PERFORMED AT:[facility] [id number] ONEILLesponsible Observer: Vitamin D 25-OH Vitamin D 25-Hydroxy [id number] 914.1810 ([employer]) Reviewed by Maya Barron MD on 11/20; All test results are final unless otherwise noted. Reported Physicians [facility] Ordered by Maya Barron MD on 11/17/2020 Collected: 11/17/2020 Reported: 11/18/2020 08:17 Reported Physicians See Note None Note: Reported Physicians:Ordering: Maya AlvarengaAttending: Maya Barron Reviewed by Maya Barron MD on 11/20; All test results are final unless otherwise noted. TROPONIN [facility] Ordered by Maya Barron MD on 10/23/2020 Collected: 10/23/2020 Reported: 10/23/2020 01:03 Troponin I SerPl-mCnc Less Than 0.015 (0.00-0.09) N (Normal) Note: Less than 0.09 NG/ML Negative 0.10 - 0.77 NG/ML High Risk0.78 NG/ML or Greater PositiveThe WHO defined the cutoff (definition for diagnosis of SC)for this method as 0.78 ng/ml.Responsible Observer: Troponin I Troponin I 600.1101 (G) Reviewed by Maya Barron MD on 10/23; All test results are final unless otherwise noted. Reported Physicians [facility] Ordered by Maya Barron MD on 10/23/2020 Collected: 10/23/2020 Reported: 10/23/2020 01:03 Reported Physicians See Note None Note: Reported Physicians:Ordering: Yoli NapolesAttending: Charles Silva To: Maya Barron Reviewed by Maya Barron MD on 10/23; All test results are final unless otherwise noted. CBC W AUTO DIFF [facility] Ordered by Maya Barron MD on [...] Auto See Note (0-2) N (Normal) Note: [id number] Ob websphere process server developer: IG% IG% 100.1375 (B) Hct [...] results are final unless otherwise noted. [facility] Ordered by Maya Barron MD [...] results are final unless otherwise noted. D-DIMER [facility] Ordered by Maya Barron MD on [...] are final unless otherwise noted. Reported Physicians [facility] Ordered by Maya Barron MD on 10/23/2020 Collected: 10/23/2020 Reported: 10/23/2020 01:22 Reported Physicians See Note None Note: Reported Physicians:Ordering: Yoli NapolesAttending: Charles Silva To: Maya Barron Reviewed by Maya Barron MD on 10/23; All test results are final unless otherwise noted. BHCG Quantitative [facility] Ordered by Maya Barron MD on 10/23/2020 Collected: 10/23/2020 Reported: 10/23/2020 01:21 B-HCG SerPl-aCnc 30986 MilliInternationalUnitsPerMilliLiter_[Arbitrary_Con (0-10) H (High) Note: @Instrument will autodiluteAPPROXI MATE GESTATION AGE APRROXIMATE HCG RANGE 0-1 WEEK 0 - 50 1-2 WEEKS 40 - 300 2-3 WEEKS 100 - 1,000 3-4 WEEKS 500 - 6,000 1-2 MONTHS 5,000 - 200,000 2-3 MONTHS 10,000 - 100,000 2ND TRIMESTER 3,000 - 50,000 3RD TRIMESTER 1,000 - 50,000Responsible Observer: [facility] [place] Quant [facility] Quantitative 600.5006 (G) Reviewed by Maya Barron MD on 10/23; All test results are final unless otherwise noted. Reported Physicians [facility] Ordered by Maya Barron MD on 10/23/2020 Collected: 10/23/2020 Reported: 10/23/2020 01:21 Reported Physicians See Note None Note: Reported Physicians:Ordering: Yoli NapolesAttending: Charles Silva To: Maya Barron Reviewed by Maya Barron MD on 10/23; All test results are final unless otherwise noted. FREE T4 (LAB) [facility] Ordered by Maya Barron MD on 10/21/2020 Collected: 10/21/2020 Reported: 10/21/2020 15:17 T4 Free SerPl-mCnc 0.97 NanoGramsPerDeciLiter_[Mass_Concentration_Units] (0.89-1.76) N (Normal) Note: Responsible Observer: FREE T4 Free Thyroxine 600.7005 (D) Reviewed by Maya Barron MD on 10/23; All test results are final unless otherwise noted. Reported Physicians [facility] Ordered by Maya Barron MD on 10/21/2020 Collected: 10/21/2020 Reported: 10/21/2020 15:17 Reported Physicians See Note None Note: Reported Physicians:Ordering: Talisha is, TimothyAttending: Tramaine PardoothyCopyifan To: Maya Barron Reviewed by Maya Barron MD on 10/23; All test results are final unless otherwise noted. TSH [facility] Ordered by Maya Barron MD on 10/21/2020 Collected: 10/21/2020 Reported: 10/21/2020 15:17 TSH SerPl DL<=0.005 mIU/L-aCnc 1.40 MicroInternationalUnitsPerMilliLiter_[Arbitrary_Con (0.35-5. 50) N (Normal) Note: Responsible Observer: TSH TSH 600 .7055 (D) Reviewed by Maya Barron MD on 10/23; All test results are final unless otherwise noted. Reported Physicians [facility] Ordered by Maya Barron MD on 10/21/2020 Collected: 10/21/2020 Reported: 10/21/2020 15:17 Reported Physicians See Note None Note: Reported Physicians:Ordering: Choco KaurAttending: Adam Pardo To: Maya Barron Reviewed by Maya Barron MD on 10/23; All test results are final unless otherwise noted. UA W/ CULTURE IF ABNORMAL [facility] Ordered by Maya Barron MD on 10/19/2020 Collected: 10/19/2020 Reported: 10/19/2020 16:31 Urobilinogen Ur Ql See Note (0.2-1 EU/dl) None Note: 0.2 EU/dl0.2 EU/[id number] E U/dlResponsible Observer: UROBILINOGEN UROBILINOGEN 300.4500 (C) RBC # Ur Strip NEGATIVE (NEGATIVE) None Note: Responsible Observer: BLOOD BLOOD 300.4652 (C) Prot Ur Ql Strip See Note (NEGATIVE) None Note: [id number] EResponsible Observer: PROTEIN PROTEIN 300.3750 (C) Ketones Ur Ql Strip See Note (NEGATIVE) None Note: [id number] EResponsible Observer: KETONE KETONE 300.3900 (C) Bilirub Ur Ql Strip.auto See Note (NEGATIVE) None Note: [id number] EResponsible Observer: BILIRUBIN BILIRUBIN 300.4550 (C) Glucose Ur Strip.auto-mCnc 100 mg/dl (NEGATIVE) None Note: Responsible Observer: GLUCOSE GLUC OSE 300.3850 (C) Appearance Ur See Note (CLEAR) None Note: CLEARCLEARLCLEARResponsible Observ er: APPEARANCE APPEARANCE 300.3400 (A) Color Ur See Note None Note: YELLOWYELLOWLYELLOWResponsible Obs erver: COLOR COLOR 300.3330 (A) Leukocyte esterase Ur Ql Strip See Note (NEGATIVE) None Note: [id number] EResponsible Observer: LEUKOCYTES LEUKOCYTES 300.3576 (C) Nitrite Ur Ql Strip See Note (NEGATIVE) None Note: [id number] EResponsible Observer: NITRITE NITRITE 300.3652 (B) pH [...] findings UAMethod of Collection:: Voided Reviewed by Myaa Barron MD on 10/20; All test results are final unless otherwise noted. Reported Physicians [facility] Ordered by Maya Barron MD on 10/19/2020 Collected: 10/19/2020 Reported: 10/19/2020 16:31 Reported Physicians See Note None Note: Reported Physicians:Ordering: Les Vanegas AAttending: Fady Raza To: Maya Barron Reviewed by Maya Barron MD on 10/20; All test results are final unless otherwise noted. URINE DRUG SCREEN -([facility]) [facility] Ordered by Maya Barron MD on 10/19/2020 Collected: 10/19/2020 Reported: 10/19/2020 16:40 PCP Ur Ql Scn>25 ng/mL See Note (Cutoff 25) None Note: [id number] E@Reenter manual test result: NEGATIVE@by Jia Lentz at 10/19/20 1639.Responsible Observer: PCP Urine Phencyclidine (PCP) Scrn 400.5120 (A) THC Ur Ql Scn>50 ng/mL See Note (Cutoff 50) None Note: [id number] EResponsible Observer: Marijuana (THC) Ur Marijuana (THC) Screen 400.5110 (A) Benzodiaz Ur Ql Scn See Note (Cutoff 150) None Note: [id number] E@Reenter manual test result: NEGATIVE@by Jia Lentz at 10/19/20 1640.Responsible Observer: Benzodiazepines Urine Benzodiazepines Screen 400.5170 (A) Opiates Ur Ql Scn See Note (Cutoff 100) None Note: [id number] E@Reenter manual test result: NEGATIVE@by Jia Lentz at 10/19/20 1640.Responsible Observer: Opiates Urine Opiates Screen 400.5150 (A) Tricyclics Ur Ql Scn See Note (Cutoff 300) None Note: [id number] E@Reenter manual test result: NEGATIVE@by Jia Lentz at 10/19/20 1640.Responsible Observer: TCA Ur Tricyclic Antidepressants 400.5180 (A) Cocaine Ur Ql Scn See Note (Cutoff 150) None Note: [id number] E@Reenter manual test result: NEGATIVE@by Jia Lentz at 10/19/20 1640.Responsible Observer: Cocaine Urine Cocaine Screen 400.5130 (A) Propoxyph+Nor Ur Ql Scn See Note (Cutoff 300) None Note: [id number] E@Reenter manual test result: NEGATIVE@by Jia Lentz at 10/19/20 1640.Responsible Observer: Propoxyphene Urine Propoxyphene Screen 400.5220 (A) Methadone Ur Ql Scn See Note (Cutoff 200) None Note: [id number] E@Reenter manual test result: NEGATIVE@by Jia Lentz at 10/19/20 1640.Responsible Observer: Methadone Urine Methadone Screen 400.5190 (A) Methamphet Ur Ql Scn See Note (Cutoff 500) None Note: [id number] E@Reenter manual test result: NEGATIVE@by Jia Lentz at 10/19/20 1640.Responsible Observer: Methamphetamine Urine Methamphetamines Screen 400.5140 (A) oxyCODONE Ur Ql Scn See Note (Cutoff 100) None Note: [id number] E@Reenter manual test result: NEGATIVE@by Jia Lentz at 10/19/20 1640.Responsible Observer: Oxycodone Urine Oxycodone Screen 400.5210 (A) Buprenorphine Ur Ql See Note (Cutoff 10) None Note: [id number] E@Reenter manual test result: NEGATIVE@by Jia Lentz at 10/19/20 1640.Responsible Observer: Buprenorphine Urine Buprenorphine Screen 400.5230 (A) Amphetamines Ur Ql Scn>500 ng/mL See Note (Cutoff 500) None Note: [id number] E@Reenter manual test result: NEGATIVE@by Jia Lentz at 10/19/20 1640.Responsible Observer: Amphetamines Urine Amphetamines Screen 400.5160 (A) Barbiturates Ur Ql Scn>200 ng/mL See Note (Cutoff 200) None Note: [id number] E@Reenter manual test result: NEGATIVE@by Jia Lentz at 10/19/20 1640.Responsible Observer: Barbiturates Urine Barbiturates 400.5200 (A) Reviewed by Maya Barron MD on 10/20; All test results are final unless otherwise noted. Reported Physicians [facility] Ordered by Maya Barron MD on 10/19/2020 Collected: 10/19/2020 Reported: 10/19/2020 16:40 Reported Physicians See Note None Note: Reported Physicians:Ordering: Les Vanegasding: Fady Raza To: Maya Barron Reviewed by Maya Barron MD on 10/20; All test results are final unless otherwise noted. TROPONIN [facility] Ordered by Maya Barron MD on 10/19/2020 Collected: 10/19/2020 Reported: 10/19/2020 16:10 Troponin I SerPl-mCnc Less Than 0.015 (0.00-0.09) N (Normal) Note: Less than 0.09 NG/ML Negative 0.10 - 0.77 NG/ML High Risk0.78 NG/ML or Greater PositiveThe WHO defined the cutoff (definition for diagnosis of SC)for this method as 0.78 ng/ml.Responsible Observer: Troponin I Troponin I 600.1101 (G) Reviewed by Maya Barron MD on 10/20; All test results are final unless otherwise noted. Reported Physicians [facility] Ordered by Maya Barron MD on 10/19/2020 Collected: 10/19/2020 Reported: 10/19/2020 16:10 Reported Physicians See Note None Note: Reported Physicians:Ordering: Les Vanegas: Fady Raza To: Maya Barron Reviewed by Maya Barron MD on 10/20; All test results are final unless otherwise noted. TSH w/ reflex to Free T4 [facility] Ordered by Maya Barron MD on 10/19/2020 Collected: 10/19/2020 Reported: 10/19/2020 16:08 TSH SerPl DL<=0.005 mIU/L-aCnc 1.66 MicroInternationalUnitsPerMilliLiter_[Arbitrary_Con (0.35-5. 50) N (Normal) Note: Responsible Observer: TSH TSH 600 .7060 (D) Reviewed by Maya Barron MD on 10/20; All test results are final unless otherwise noted. Reported Physicians [facility] Ordered by Maya Barron MD on 10/19/2020 Collected: 10/19/2020 Reported: 10/19/2020 16:08 Reported Physicians See Note None Note: Reported Physicians:Ordering: Les Vanegas: Fady Raza To: Maya Barron Reviewed by Maya Barron MD on 10/20; All test results are final unless otherwise noted. CMP [facility] Ordered by Maya Barron MD on [...] unless otherwise noted. CBC W AUTO DIFF [facility] Ordered by Maya Barron MD on [...] Auto See Note (0-2) N (Normal) Note: 0.30.8S67458244844.3Responsible Ob websphere process server developer: IG% IG% 100.1375 (B) Hct [...] are final unless otherwise noted. Reported Physicians [facility] Ordered by Maya Barron MD on 10/19/2020 Collected: 10/19/2020 Reported: 10/19/2020 16:33 Reported Physicians See Note None Note: Reported Physicians:Ordering: Les Vanegasding: Fady Raza To: Maya Barron Reviewed by Maya Barron MD on 10/20; All test results are final unless otherwise noted. CRP, C-REACTIVE PROTEIN [facility] Ordered by Maya Barron MD on 10/19/2020 Collected: 10/19/2020 Reported: 10/19/2020 16:08 CRP SerPl-mCnc 7.5 MilliGramsPerLiter_[Mass_Concentration_Units] (0.0-5.0) H (High) Note: Responsible Observer: CRP C-Reacti ve Protein 401.4355 (H) Reviewed by Maya Barron MD on 10/20; All test results are final unless otherwise noted. SED RATE [facility] Ordered by Maya Barron MD on 10/19/2020 Collected: 10/19/2020 Reported: 10/19/2020 16:32 ESR Bld Qn Westrgrn 22 (0-20) H (High) Note: @Reenter manual test result: 22@by Jia Lentz at 10/19/20 1632.Responsible Observer: SED RATE SED RATE 100.6400 (B) Reviewed by Maya Barron MD on 10/20; All test results are final unless otherwise noted. Reported Physicians [facility] Ordered by Maya Barron MD on 10/19/2020 Collected: 10/19/2020 Reported: 10/19/2020 16:33 Reported Physicians See Note None Note: Reported Physicians:Ordering: Les Vanegas AAttending: Fady Raza To: Maya Barron Reviewed by Maya Barron MD on 10/20; All test results are final unless otherwise noted. PT/PTT [facility] Ordered by Maya Barron MD on [...] are final unless otherwise noted. Reported Physicians [facility] Ordered by Maya Barron MD on 10/08/2020 Collected: 10/08/2020 Reported: 10/08/2020 03:22 Reported Physicians See Note None Note: Reported Physicians:Ordering: Sana Reicnosending: Sammie Ann To: Maya Barron Reviewed by Maya Barron MD on 10/09; All test results are final unless otherwise noted. CBC W AUTO DIFF [facility] Ordered by Maya Barron MD on [...] Auto See Note (0-2) N (Normal) Note: [id number] Ob websphere process server developer: IG% IG% 100.1375 (B) Hct [...] results are final unless otherwise noted. MAGNESIUM [facility] Ordered by Maya Barron MD on 10/08/2020 Collected: 10/08/2020 Reported: 10/08/2020 03:17 Magnesium SerPl-mCnc 1.8 MilliGramsPerDeciLiter_[Mass_Concentration_Units] (1.3-2.7) N (Normal) Note: Responsible Observer: Magnesium Ma gnesium 400.3300 (G) Reviewed by Maya Barron MD on 10/09; All test results are final unless otherwise noted. D-DIMER [facility] Ordered by Maya Barron MD on [...] are final unless otherwise noted. Reported Physicians [facility] Ordered by Maya Barron MD on [...] are final unless otherwise noted. Reported Physicians [facility] Ordered by Maya Barron MD on 10/08/2020 Collected: 10/08/2020 Reported: 10/08/2020 03:21 Reported Physicians See Note None Note: Reported Physicians:Ordering: Sana Recinosending: Sammie Ann To: Maya Barron Reviewed by Maya Barron MD on 10/09; All test results are final unless otherwise noted. SED RATE [facility] Ordered by Maya Barron MD on 10/04/2020 Collected: 10/04/2020 Reported: 10/04/2020 18:05 ESR Bld Qn Westrgrn 16 (0-20) N (Normal) Note: @Reeer manual test result: 16@by Jia Lentz at 10/04/20 1805.Responsible Observer: SED RATE SED RATE 100.6400 (B) Reviewed by Maya Barron MD on 10/09; All test results are final unless otherwise noted. Reported Physicians [facility] Ordered by Maya Barron MD on 10/04/2020 Collected: 10/04/2020 Reported: 10/04/2020 18:06 Reported Physicians See Note None Note: Reported Physicians:Ordering: Les Vanegasding: Fady Raza To: Maya Barron Reviewed by Maya Barron MD on 10/09; All test results are final unless otherwise noted. TROPONIN [facility] Ordered by Maya Barron MD on 10/04/2020 Collected: 10/04/2020 Reported: 10/04/2020 17:35 Troponin I SerPl-mCnc Less Than 0.015 (0.00-0.09) N (Normal) Note: Less than 0.09 NG/ML Negative 0.10 - 0.77 NG/ML High Risk0.78 NG/ML or Greater PositiveThe WHO defined the cutoff (definition for diagnosis of SC)for this method as 0.78 ng/ml.Responsible Observer: Troponin I Troponin I 600.1101 (G) Reviewed by Maya Barron MD on 10/09; All test results are final unless otherwise noted. Reported Physicians [facility] Ordered by Maya Barron MD on 10/04/2020 Collected: 10/04/2020 Reported: 10/04/2020 17:35 Reported Physicians See Note None Note: Reported Physicians:Ordering: Les Vanegasding: Fady Raza To: Maya Barron Reviewed by Maya Barron MD on 10/09; All test results are final unless otherwise noted. CBC W AUTO DIFF [facility] Ordered by Maya Barron MD on [...] Auto See Note (0-2) N (Normal) Note: [id number] Ob websphere process server developer: IG% IG% 100.1375 (B) Hct [...] results are final unless otherwise noted. [facility] Ordered by Maya Barron MD [...] are final unless otherwise noted. Reported Physicians [facility] Ordered by Maya Barron MD on 10/04/2020 Collected: 10/04/2020 Reported: 10/04/2020 17:42 Reported Physicians See Note None Note: Reported Physicians:Ordering: Les Vanegas: Fady Raza To: Maya Barron Reviewed by Maya Barron MD on 10/09; All test results are final unless otherwise noted. TSH w/ reflex to Free T4 [facility] Ordered by Maya Barron MD on 10/04/2020 Collected: 10/04/2020 Reported: 10/04/2020 17:42 TSH SerPl DL<=0.005 mIU/L-aCnc 1.92 MicroInternationalUnitsPerMilliLiter_[Arbitrary_Con (0.35-5. 50) N (Normal) Note: Responsible Observer: TSH TSH 600 .7060 (D) Reviewed by Maya Barron MD on 10/09; All test results are final unless otherwise noted. Reported Physicians [facility] Ordered by Maya Barron MD on 10/04/2020 Collected: 10/04/2020 Reported: 10/04/2020 17:42 Reported Physicians See Note None Note: Reported Physicians:Ordering: Les Vanegas: Fady Raza To: Maya Barron Reviewed by Maya Barron MD on 10/09; All test results are final unless otherwise noted. MANUAL DIFF [facility] Ordered by Myaa Barron MD on 10/03/2020 Collected: 10/03/2020 Reported: 10/03/2020 19:56 MANUAL DIFF See Note None Note: NOTES OTHER/NOT INTERPRETED Cells counted 100 Lymphocytes # Bld Manual 17 %Monocytes # Bld Manual 3 %Morphology Bld-Imp APPEARS NORMAL Neutrophils # Bld Manual 80 %Platelet # Bld Est APPEARS NORMAL @10/03/20 194: MANUAL DIFF added. RFLXG = DIFF.Responsible Observer: TOTAL CELLS TOTAL CELLS COUNTED 100.2105 (A) Reviewed by Maya Barron MD on 10/04; All test results are final unless otherwise noted. Reported Physicians [facility] Ordered by Maya Barron MD on 10/03/2020 Collected: 10/03/2020 Reported: 10/03/2020 19:56 Reported Physicians See Note None Note: Reported Physicians:Ordering: Brook yeung PatAttending: Charles Silva To: Maya Barron Reviewed by Maya Barron MD on 10/04; All test results are final unless otherwise noted. FREE T4 (LAB) [facility] Ordered by Maya Barron MD on 10/03/2020 Collected: 10/03/2020 Reported: 10/03/2020 20:08 T4 Free SerPl-mCnc 0.97 NanoGramsPerDeciLiter_[Mass_Concentration_Units] (0.89-1.76) N (Normal) Note: Responsible Observer: FREE T4 Free Thyroxine 600.7005 (D) Reviewed by Maya Barron MD on 10/04; All test results are final unless otherwise noted. Reported Physicians [facility] Ordered by Maya Barron MD on 10/03/2020 Collected: 10/03/2020 Reported: 10/03/2020 20:08 Reported Physicians See Note None Note: Reported Physicians:Ordering: Brook yeung, PatAttending: Yoli SilvaCopyifan To: Maya Barron Reviewed by Maya Barron MD on 10/04; All test results are final unless otherwise noted. 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 [facility] Ordered by Myaa Barron MD on 10/03/2020 Collected: 10/03/2020 Reported: [...] are final unless otherwise noted. Reported Physicians [facility] Ordered by Maya Barron MD on 10/03/2020 Collected: 10/03/2020 Reported: 10/03/2020 20:03 Reported Physicians See Note None Note: Reported Physicians:Ordering: Yoli NapolesAttending: Charles Silva To: Maya Barron Reviewed by Maya Barron MD on 10/04; All test results are final unless otherwise noted. [facility] Quantitative [facility] Ordered by Maya Barron MD on 10/03/2020 Collected: 10/03/2020 Reported: 10/03/2020 20:23 B-HCG SerPl-aCnc 34735 MilliInternationalUnitsPerMilliLiter_[Arbitrary_Con (0-10) H (High) Note: @Instrument will [...] are final unless otherwise noted. Reported Physicians [facility] Ordered by Maya Barron MD on 10/03/2020 Collected: 10/03/2020 Reported: 10/03/2020 20:23 Reported Physicians See Note None Note: Reported Physicians:Ordering: Yoli NapolesAttending: Charles Silva To: Maya Barron Reviewed by Maya Barron MD on 10/04; All test results are final unless otherwise noted. TROPONIN [facility] Ordered by Maya Barron MD on 10/03/2020 Collected: 10/03/2020 Reported: 10/03/2020 20:07 Troponin I SerPl-mCnc Less Than 0.015 (0.00-0.09) N (Normal) Note: Less than 0.09 NG/ML Negative 0.10 - 0.77 NG/ML High Risk0.78 NG/ML or Greater PositiveThe WHO defined the cutoff (definition for diagnosis of SC)for this method as 0.78 ng/ml.Responsible Observer: Troponin I Troponin I 600.1101 (G) Reviewed by Maya Barron MD on 10/04; All test results are final unless otherwise noted. Reported Physicians [facility] Ordered by Maya Barron MD on 10/03/2020 Collected: 10/03/2020 Reported: 10/03/2020 20:07 Reported Physicians See Note None Note: Reported Physicians:Ordering: Yoli NapolesAttending: Charles Silva To: Maya Barron Reviewed by Maya Barron MD on 10/04; All test results are final unless otherwise noted. UA W/ CULTURE IF ABNORMAL [facility] Ordered by Maya Barron MD on 10/03/2020 Collected: 10/03/2020 Reported: 10/03/2020 19:52 Urobilinogen Ur Ql See Note (0.2-1 EU/dl) None Note: 0.2 EU/dl0.2 EU/[id number] E U/dlResponsible Observer: UROBILINOGEN UROBILINOGEN 300.4500 (C) RBC # Ur Strip NEGATIVE (NEGATIVE) None Note: Responsible Observer: BLOOD BLOOD 300.4652 (C) Prot Ur Ql Strip See Note (NEGATIVE) None Note: [id number] EResponsible Observer: PROTEIN PROTEIN 300.3750 (C) Ketones Ur Ql Strip See Note (NEGATIVE) None Note: [id number] EResponsible Observer: KETONE KETONE 300.3900 (C) Bilirub Ur Ql Strip.auto See Note (NEGATIVE) None Note: [id number] EResponsible Observer: BILIRUBIN BILIRUBIN 300.4550 (C) Glucose Ur Strip.auto-mCnc NEGATIVE (NEGATIVE) None Note: Responsible Observer: GLUCOSE GLUC OSE 300.3850 (C) Appearance Ur See Note (CLEAR) None Note: CLEARCLEARLCLEARResponsible Observ er: APPEARANCE APPEARANCE 300.3400 (A) Color Ur See Note None Note: YELLOWYELLOWLYELLOWResponsible Obs erver: COLOR COLOR 300.3330 (A) Leukocyte esterase Ur Ql Strip See Note (NEGATIVE) None Note: [id number]@DO MICR O!!!!A Culture has been added to this specimen per established criteriaResponsible Observer: LEUKOCYTES LEUKOCYTES 300.3576 (C) Nitrite Ur Ql Strip See Note (NEGATIVE) None Note: [id number] EResponsible Observer: NITRITE NITRITE 300.3652 (B) pH [...] are final unless otherwise noted. Urine culture [facility] Ordered by Maya Barron MD on 10/03/2020 Collected: 10/03/2020 Reported: 10/04/2020 13:10 Bacteria Ur Cult See Note None Note: NGNo growth.L1NG NOTES See Note None Note: @10/03/201951: Urine culture adde d. RFLXG = CULT.ADD. Reviewed by Maya Barron MD on 10/04; All test results are final unless otherwise noted. Reported Physicians [facility] Ordered by Maya Barron MD on 10/03/2020 Collected: 10/03/2020 Reported: 10/04/2020 13:10 Reported Physicians See Note None Note: Reported Physicians:Ordering: oYli NapolesAttending: Charles Silva To: Maya Barron Reviewed by Maya Barron MD on 10/04; All test results are final unless otherwise noted. ADD ON MICROSCOPIC [facility] Ordered by Maya Barron MD on 10/03/2020 Collected: 10/03/2020 Reported: 10/03/2020 19:52 ADD ON MICROSCOPIC See Note (0-5) None Note: NOTES OTHER/NOT INTERPRETED Bacteria UrnS Ql Micro SMALL AMOUNT Bacteria UrnS Ql Micro SMALL AMOUNT Bacteria UrnS Ql Micro L Bacteria UrnS Ql Micro Bacteria UrnS Ql Micro Bacteria UrnS Ql Micro Bacteria UrnS Ql Micro [id number] Bacteria UrnS Ql Micro Bacteria UrnS Ql [...] are final unless otherwise noted. Reported Physicians [facility] Ordered by Maya Barron MD on 10/03/2020 Collected: 10/03/2020 Reported: 10/03/2020 19:52 Reported Physicians See Note None Note: Reported Physicians:Ordering: Cliff Napolesending: Charles Silva To: Maya Barron Reviewed by Maya Barron MD on 10/04; All test results are final unless otherwise noted. 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 [facility] Ordered by Maya Barron MD [...] are final unless otherwise noted. Reported Physicians [facility] Ordered by Maya Barron MD on 09/18/2020 Collected: 09/18/2020 Reported: 09/18/2020 20:10 Reported Physicians See Note None Note: Reported Physicians:Ordering: Yoli NapolesAttending: Charles Silva To: Maya Barron Reviewed by Maya Barron MD on 09/20; All test results are final unless otherwise noted. TROPONIN [facility] Ordered by Maya Barron MD on 09/18/2020 Collected: 09/18/2020 Reported: 09/18/2020 20:10 Troponin I SerPl-mCnc Less Than 0.015 (0.00-0.09) N (Normal) Note: Less than 0.09 NG/ML Negative 0.10 - 0.77 NG/ML High Risk0.78 NG/ML or Greater PositiveThe WHO defined the cutoff (definition for diagnosis of SC)for this method as 0.78 ng/ml.Responsible Observer: Troponin I Troponin I 600.1101 (G) Reviewed by Maya Barron MD on 09/20; All test results are final unless otherwise noted. Reported Physicians [facility] Ordered by Maya Barron MD on 09/18/2020 Collected: 09/18/2020 Reported: 09/18/2020 20:10 Reported Physicians See Note None Note: Reported Physicians:Ordering: Yoli NapolesAttending: Charles Silva To: Maya Barron Reviewed by Maya Barron MD on 09/20; All test results are final unless otherwise noted. BHCG, QUANTITATIVE [facility] Ordered by Maya Barron MD on 09/18/2020 Collected: 09/18/2020 Reported: 09/18/2020 20:21 B-HCG [facility] [id number] MilliInternationalUnitsPerMilliLiter_[Arbitrary_Con (0-10) H (High) Note: APPROXIMATE GESTATION [...] are final unless otherwise noted. Reported Physicians [facility] Ordered by Maya Barron MD on 09/18/2020 Collected: 09/18/2020 Reported: 09/18/2020 20:22 Reported Physicians See Note None Note: Reported Physicians:Ordering: Yoli NapolesAttending: Charles Silva To: Maya Barron Reviewed by Maya Barron MD on 09/20; All test results are final unless otherwise noted. Urine culture [facility] Ordered by Cat Gutierrez RPA on 09/11/2020 Collected: 09/11/2020 Reported: 09/12/2020 13:11 Bacteria Ur Cult See Note None Note: NGNo growth.L1NG NOTES See Note None Note: GEORGIANA PICKARD IN OTHER NAME IN MEDICAL RECORD Reviewed by Cat Gutierrez RPA on 09/12; All test results are final unless otherwise noted. Reported Physicians [facility] Ordered by Cat Gutierrez RPA on 09/11/2020 Collected: 09/11/2020 Reported: 09/12/2020 13:11 Reported Physicians See Note None Note: Reported Physicians:Ordering: Cat ConwayAttending: Cat Gutierrez Reviewed by Cat Gutierrez RPA on 09/12; All test results are final unless otherwise noted. UA W/ CULTURE IF ABNORMAL [facility] Ordered by Maya Barron MD on 09/10/2020 Collected: 09/10/2020 Reported: 09/10/2020 17:48 Urobilinogen Ur Ql See Note (0.2-1 EU/dl) None Note: 0.2 EU/dl0.2 EU/[id number] E U/dlResponsible Observer: UROBILINOGEN UROBILINOGEN 300.4500 (C) RBC # Ur Strip NEGATIVE (NEGATIVE) None Note: Responsible Observer: BLOOD BLOOD 300.4652 (C) Prot Ur Ql Strip See Note (NEGATIVE) None Note: [id number] EResponsible Observer: PROTEIN PROTEIN 300.3750 (C) Ketones Ur Ql Strip See Note (NEGATIVE) None Note: [id number] ble Observer: KETONE KETONE 300.3900 (C) Bilirub Ur Ql Strip.auto See Note (NEGATIVE) None Note: [id number] EResponsible Observer: BILIRUBIN BILIRUBIN 300.4550 (C) Glucose Ur Strip.auto-mCnc NEGATIVE (NEGATIVE) None Note: Responsible Observer: GLUCOSE GLUC OSE 300.3850 (C) Appearance Ur See Note (CLEAR) None Note: CLEARCLEARLCLEARResponsible Observ er: APPEARANCE APPEARANCE 300.3400 (A) Color Ur See Note None Note: YELLOWYELLOWLYELLOWResponsible Obs erver: COLOR COLOR 300.3330 (A) Leukocyte esterase Ur Ql Strip See Note (NEGATIVE) None Note: [id number] EResponsible Observer: LEUKOCYTES LEUKOCYTES 300.3576 (C) Nitrite Ur Ql Strip See Note (NEGATIVE) None Note: [id number] EResponsible Observer: NITRITE NITRITE 300.3652 (B) pH [...] are final unless otherwise noted. Reported Physicians [facility] Ordered by Maya Barron MD on 09/10/2020 Collected: 09/10/2020 Reported: 09/10/2020 17:48 Reported Physicians See Note None Note: Reported Physicians:Ordering: Les Vanegas: Fady Raza To: Maya Barron Reviewed by Maya Barron MD on 09/11; All test results are final unless otherwise noted. BHCG, QUANTITATIVE [facility] Ordered by Maya Barron MD on 09/10/2020 Collected: 09/10/2020 Reported: 09/10/2020 15:48 B-HCG [facility] [address]463 MilliInternationalUnitsPerMilliLiter_[Arbitrary_Con (0-10) H (High) Note: @Instrument will [...] are final unless otherwise noted. Reported Physicians [facility] Ordered by Maya Barron MD on 09/10/2020 Collected: 09/10/2020 Reported: 09/10/2020 15:49 Reported Physicians See Note None Note: Reported Physicians:Ordering: Les Vanegas: Fady Raza To: Maya Barron Reviewed by Maya Barron MD on 09/11; All test results are final unless otherwise noted. ABO/Rh Type [facility] Ordered by Maya Barron MD on 09/10/2020 Collected: 09/10/2020 Reported: 09/10/2020 15:43 Blood bank studies Yes None Note: Responsible Observer: Prev. Histor y? Previous History? 100.0800 (A) Blood Type See Note None Note: OPO PositiveLResponsible Observer: Blood Type Blood Type 110.0950 (C) Reviewed by Maya Barron MD on 09/11; All test results are final unless otherwise noted. Reported Physicians [facility] Ordered by Maya Barron MD on 09/10/2020 Collected: 09/10/2020 Reported: 09/10/2020 15:43 Reported Physicians See Note None Note: Reported Physicians:Ordering: Les Vanegastending: Fady Raza To: Maya Barron Reviewed by Maya Barron MD on 09/11; All test results are final unless otherwise noted. COVID QUEST [facility] Ordered by Maya Barron MD on [...] findings,re- testing should be considered in [facility] authorities. Laboratory test results shouldalways be considered in the context of clinicalobservations and epidemiological data in making a finaldiagnosis and patient management decisions.Please review the "Fact Sheets" and FDA authorizedlabeling available for health care providers andpatients using the following websites:https://www.[employer] .com/home/Covid-19/HCP/NAAT/fact-hctgk3gxqhm://www.[employer]/home/Cov id-19/Patients/NAAT/fact-sxyyv1Vhwi test has been authorized by the FDA under anEmergency Use Authorization (EUA) for use by authorizedlaboratories.Due to the current public health emergency, [facility] is receiving a high volume of samples [...] information about COVID-19 can be foundat the [employer] website:www.[facility].com/Covid19.THIS TEST WAS PERFORMED AT:[facility] [id number] ONEILLesponsible Observer: COVID-19 COVID-19 ТАТЬЯНА (SARS-CoV-2) [id number] 914.4975 ([facility]) Reviewed by Maya Barron MD on 08/25; All test results are final unless otherwise noted. Reported Physicians [facility] Ordered by Maya Barron MD on 08/23/2020 Collected: 08/23/2020 Reported: 08/25/2020 03:57 Reported Physicians See Note None Note: Reported Physicians:Ordering: Sana Recinosending: Jasper Anntricia To: Maya Barron Reviewed by Maya Barron MD on 08/25; All test results are final unless otherwise noted. [facility] Ordered by Maya Barron MD on 08/15/2020 [address] [place], [address] Collected: 08/15/2020 Reported: 08/15/2020 11:47 tel : strep antigen normal (negative) N (Normal) Reviewed by Maya Barron MD on 08/15; All test results are final unless otherwise noted. Urinalysis w/out microscopy [facility] Ordered by Maya Barron MD on 08/15/2020 [address] [place], [address] Specimen Source: Urine Collected: 08/15/2020 Reporte d: [...] unless otherwise noted. Extended hours FLU/COV2 NAAT [facility] Ordered by Maya Barron MD on 08/15/2020 Collected: 08/15/2020 Reported: 08/15/2020 15:55 Extended hours FLU/COV2 NAAT See Note None Note: TNPNo Reportable ResultLTNPNo Repo rtable QqmwxsN5CZA NOTES See Note None Note: GEORGIANA PICKARD IN OTHER NAME IN MEDICAL RECORD Reviewed by Maya Barron MD on 08/16; All test results are final unless otherwise noted. Reported Physicians [facility] Ordered by Maya Barron MD on 08/15/2020 Collected: 08/15/2020 Reported: 08/15/2020 15:55 Reported Physicians See Note None Note: Reported Physicians:Ordering: Maya AlvarengaAttending: Maya Barron Reviewed by Maya Barron MD on 08/16; All test results are final unless otherwise noted. Sweta Raquel SARS/FLU [facility] Ordered by Maya Barron MD on 08/15/2020 Collected: 08/15/2020 Reported: 08/15/2020 15:55 Sweta Raquel SARS/FLU See Note None Note: Sweta Raquel is a rapid, automated q ualitative anddifferentiation of Influenza type A,B and OFRO-RYC-8HZZO-RT-PCR testNORMAL VALUE IS "NOT DETECTED".Limitations of the sweta raquel Influenza A/B & YJOZ-HHE-9hoszy method.Modifications to manufacturers recommendation and proceduresmay alter performance of the test.Negative results do not preclude Influenza A,B or SARS- MQA5gbekksrdsx and should not be used as the [...] out diseases caused by other bacterialor viral pathogens.[id number]-yyr CoV RNA Resp Ql ТАТЬЯНА+probeLNNSARS SARS-COV-2 NOT [id number]-CXY-4 NOT [id number] RNA Resp Ql ТАТЬЯНА+probeLNNFLUAInfluenza A Not [id number] A Not Ytogzwqo88302-6ZZLVQ RNA Resp Ql ТАТЬЯНА+probeLNNINBInfluenza B Not [id number] B Not Detected NOTES See Note None Note: GEORGIANA PICKARD IN OTHER NAME IN MEDICAL RECORD Reviewed by Maya Barron MD on 08/18; All test results are final unless otherwise noted. Throat culture [facility] Ordered by Maya Barron MD on 08/15/2020 Collected: 08/15/2020 Reported: 08/17/2020 06:37 Throat culture results Normal Deisy None Reviewed by Maya Barron MD on 08/18; All test results are final unless otherwise noted. Reported Physicians [facility] Ordered by Maya Barron MD on 08/15/2020 Collected: 08/15/2020 Reported: 08/17/2020 06:37 Reported Physicians See Note None Note: Reported Physicians:Ordering: Maya AlvarengaAttending: Maya Barron Reviewed by Maya Barron MD on 08/18; All test results are final unless otherwise noted. HPVI [facility] Ordered by Cat Gutierrez RPA on 08/09/2020 Collected: 08/09/2020 Reported: 08/15/2020 06:53 Thin Prep Vag See Note None Note: See scanned reportSee scanned repo rtLSee scanned reportResponsible Observer: TP w/HPV if ASC Thinprep w/HPV if ASCUS 805.1454 ([facility]) NOTES See Note None Note: [id number] Technique: BRUS H-SPATULABody Site: CERVIX Reviewed by Cat Gutierrez RPA on 08/15; All test results are final unless otherwise noted. Reported Physicians [facility] Ordered by Cat Gutierrez RPA on 08/09/2020 Collected: 08/09/2020 Reported: 08/15/2020 06:53 Reported Physicians See Note None Note: Reported Physicians:Ordering: Atte nding: Cat GutierrezCopyifan To: Maya Barron Reviewed by Cat Gutierrez RPA on 08/15; All test results are final unless otherwise noted. GCAMP [facility] Ordered by Cat Gutierrez RPA on 08/09/2020 Collected: 08/09/2020 Reported: 08/11/2020 06:52 C trach rRNA XXX Ql ТАТЬЯНА+probe See Note (NOT DETECTED) None Note: NOT DETECTEDNOT [id number] 6NOT DETECTEDResponsible Observer: C.Trach RNA Chlamydia trachomatis DNA-ТАТЬЯНА [id number] 913.9900 ([employer]) N gonorrhoea rRNA XXX Ql ТАТЬЯНА+probe See Note (NOT DETECTED) None Note: NOT DETECTEDNOT [id number] 6NOT DETECTEDResponsible Observer: GC RNA Neisseria gonorrhoeae DNA -ТАТЬЯНА [id number] 913.9905 ([employer]) Chlamydia/GC DNA Note SEE NOTE None Note: The analytical performance charact eristics of thisassay, when used to test SurePath(TM) specimens have beendetermined by [employer] The modifications havenot been cleared or approved by the FDA. This assay hasbeen validated pursuant to the CLIA regulations and isused for clinical purposes.For additional information, please refer tohttps://education.Gather.md/faq/ZSZ371(This link is being provided for information/educational purposes only.)THIS TEST WAS PERFORMED AT:[place] [id number],MDResponsible Observer: GC/Chlam Note Chlamydia/GC DNA Note [id number] 913.9907 (A) NOTES See Note None Note: PICKARD:IN OTHER NAME IN MEDICAL RECORD Reviewed by Cat Gutierrez RPA on 08/12; All test results are final unless otherwise noted. Reported Physicians [facility] Ordered by Cat Gutierrez RPA on 08/09/2020 Collected: 08/09/2020 Reported: 08/11/2020 06:52 Reported Physicians See Note None Note: Reported Physicians:Ordering: Atte nding: Brenda, GaudencioanaCopy To: Maya Barron Reviewed by Cat Gutierrez RPA on 08/12; All test results are final unless otherwise noted. AFFIRM [facility] Ordered by Cat Gutierrez RPA on 08/09/2020 Collected: 08/09/2020 Reported: 08/11/2020 06:52 Dionna species DNA Probe NOT DETECTED (NOT DETECTED) None Note: THIS TEST WAS PERFORMED AT:[facility] [address]LQUOAH MERATI,MDResponsible Observer: Dionna DNA Dionna species DNA Probe [id number] 913.2350 ([facility]) Gardnerella DNA Probe DETECTED (NOT DETECTED) H (High) Note: Increased levels of G. vaginalis m ay not be significantin the absence of signs and symptoms of bacterialvaginosis.Responsible Observer: Gardnerella DNA Gardnerella DNA Probe [id number] 913.2345 ([facility]) Trichomonas DNA Probe NOT DETECTED (NOT DETECTED) None Note: Responsible Observer: Trichomonas DNA Trichomonas DNA Probe [id number] 913.2340 ([facility]) NOTES See Note None Note: PICKARD:IN OTHER NAME IN MEDICAL RECORD Reviewed on 08/11/2020; All test result s are final unless otherwise noted. Reported Physicians [facility] Ordered by Cat Gutierrez RPA on 08/09/2020 Collected: 08/09/2020 Reported: 08/11/2020 06:52 Reported Physicians See Note None Note: Reported Physicians:Ordering: Atte oralia: Rigo Gutierrez To: Maya Barron Reviewed on 08/11/2020; All test result s are final unless otherwise noted. ADD ON MICROSCOPIC [facility] Ordered by Cat Gutierrez RPA on 08/09/2020 Collected: 08/09/2020 Reported: 08/09/2020 12:23 ADD ON MICROSCOPIC See Note (0-5) H (High) Note: NOTES OTHER/NOT INTERPRETED Bacteria UrnS Ql Micro SMALL AMOUNT Bacteria UrnS Ql Micro SMALL AMOUNT Bacteria UrnS Ql Micro L Bacteria UrnS Ql Micro Bacteria UrnS Ql Micro Bacteria UrnS Ql Micro Bacteria UrnS Ql Micro [id number] Bacteria UrnS Ql Micro Bacteria UrnS Ql [...] Ql Micro Mucous Threads UrnS Ql Micro [id number] Mucous Threads UrnS Ql Micro Mucous Threads UrnS Ql Micro MODERATE AMOUNT WBC # Ur Manual 5-8 @08/09/20 1210: UA W/ MICRO added. RFLXG = UMIC.Method of Collection:: Clean CatchResponsible Observer: WBC WBC 300.5000 (A) Reviewed by Cat Gutierrez RPA on 08/12; All test results are final unless otherwise noted. Reported Physicians [facility] Ordered by Cat Gutierrez RPA on 08/09/2020 Collected: 08/09/2020 Reported: 08/10/2020 17:47 Reported Physicians See Note None Note: Reported Physicians:Ordering: Atte oralia: Rigo Gutierrez To: Maya Barron Reviewed by Cat Gutierrez RPA on 08/12; All test results are final unless otherwise noted. URINALYSIS [facility] Ordered by Cat Gutierrez RPA on 08/09/2020 Collected: 08/09/2020 Reported: 08/09/2020 12:23 Urobilinogen Ur Ql See Note (0.2-1 EU/dl) None Note: 1 EU/dl1 EU/[id number] EU/dlRe sponsible Observer: UROBILINOGEN UROBILINOGEN 300.4500 (C) RBC # Ur Strip NEGATIVE (NEGATIVE) None Note: Responsible Observer: BLOOD BLOOD 300.4650 (C) Prot Ur Ql Strip See Note (NEGATIVE) None Note: [id number] ble Observer: PROTEIN PROTEIN 300.3750 (C) Ketones Ur Ql Strip See Note (NEGATIVE) None Note: [id number] ble Observer: KETONE KETONE 300.3900 (C) Bilirub Ur Ql Strip.auto See Note (NEGATIVE) None Note: [id number] EResponsible Observer: BILIRUBIN BILIRUBIN 300.4550 (C) Glucose Ur Strip.auto-mCnc NEGATIVE (NEGATIVE) None Note: Responsible Observer: GLUCOSE GLUC OSE 300.3850 (C) Appearance Ur See Note (CLEAR) None Note: CLEARCLEARLCLEARResponsible Observ er: APPEARANCE APPEARANCE 300.3400 (A) Color Ur See Note None Note: DARK YELLOWDARK YELLOWLDARK YELLOW Responsible Observer: COLOR COLOR 300.3300 (A) Leukocyte esterase Ur Ql Strip See Note (NEGATIVE) None Note: [id number]@DO MICR O!!!!Responsible Observer: LEUKOCYTES LEUKOCYTES 300.3575 (C) Nitrite Ur Ql Strip See Note (NEGATIVE) None Note: [id number] EResponsible Observer: NITRITE NITRITE 300.3650 (B) pH Ur Strip 5.0 (5-8) None Note: Responsible Observer: PH PH 300.3 450 (C) Sp Gr Ur Refractometry 1.032 (1.005-1.030) None Note: Responsible Observer: SP GRAVITY U RINE SPECIFIC GRAVITY-MAN 300.3475 (C) URINE MICROSCOPIC ADDED Microscopic Added None Note: Responsible Observer: UA URINE SHAWN ROSCOPIC PENDING 300.7587 (D) NOTES See Note None Note: @08/09/20 1210: UA W/ MICRO added. RFLXG = UMIC.Method of Collection:: Clean Catch Reviewed by Cat Gutierrez RPA on 08/14; All test results are final unless otherwise noted. Urine culture [facility] Ordered by Cat Gutierrez [facility] on 08/09/2020 Collected: 08/09/2020 Reported: 08/10/2020 08:33 Bacteria Ur Cult See Note None Note: NGNo growth.L1NG Reviewed by Cat Gutierrez [facility] on 08/14; All test results are final unless otherwise noted. MEDMATCH [facility] Ordered by Cat Gutierrez [facility] on 08/09/2020 Collected: 08/09/2020 Reported: 08/13/2020 15:56 MEDMATCH See scanned report None Note: Responsible Observer: MEDMATCH MED MATCH [phone] ([facility]) Reviewed by Cat Gutierrez [facility] on 08/14; All test results are final unless otherwise noted. Reported Physicians [facility] Ordered by Cat Gutierrez [facility] on 08/09/2020 Collected: 08/09/2020 Reported: 08/13/2020 15:56 Reported Physicians See Note None Note: Reported Physicians:Ordering: Attchandler barton: Rigo Gutierrez To: Maya Barron Reviewed by Cat Gutierrez [facility] on 08/14; All test results are final unless otherwise noted. Varicella-Zoster IgG Antibody [facility] Ordered by Cat Gutierrez [facility] on 08/09/2020 Collected: 08/09/2020 Reported: 08/10/2020 17:47 VZV IgG Ser [facility] 242.10 None Note: Index Interpr [...] Antibody Immunity Screen, ACIF.THIS TEST WAS PERFORMED AT:[facility] [address]NQGCWA ME RATI,MDResponsible Observer: VARICELLA IGG Varicella-Zoster IgG Antibody [id number] 710.1269 ([facility]) NOTES See Note None Note: Patient Street Address: [address] [place] [address] [address]Patient City: [place] [facility] Zip Code: [id number] Reviewed by Cat Gutierrez RPA on 08/12; All test results are final unless otherwise noted. CBC [facility] Ordered by Cat Gutierrez RPA on [...] Auto See Note (0-2) N (Normal) Note: [id number] Ob websphere process server developer: IG% IG% 100.1375 (B) Hct [...] results are final unless otherwise noted. TSH [facility] Ordered by Cat Gutierrez RPA on 08/09/2020 Collected: 08/09/2020 Reported: 08/09/2020 14:24 TSH SerPl DL<=0.005 mIU/L-aCnc 1.18 MicroInternationalUnitsPerMilliLiter_[Arbitrary_Con (0.35-5. 50) N (Normal) Note: Responsible Observer: TSH TSH 600 .7055 (D) Reviewed by Cat Gutierrez RPA on 08/14; All test results are final unless otherwise noted. Lead (Venous) Wh.Bld [facility] Ordered by Cat Gutierrez RPA on 08/09/2020 Collected: 08/09/2020 Reported: 08/10/2020 17:47 Lead Bld-sCnc <1 (<5) None Note: See Note 1Note 1This test was faith granados and its analytical performancecharacteristics have been determined by [employer]. It has not been cleared or approved by theA. This assay has been validated pursuant to the CLIAregulations and is used for clinical purposes.THIS TEST WAS PERFORMED AT:[facility] [address]NTAIJO MERATI,MDResponsible Observer: Lead, WB Lead, Whole Blood [id number] 911.2190 ([facility]) NOTES See Note None Note: Patient Street Address: [address] [place] [address] [address]Patient City: [place] State: [facility] Zip Code: [address]Zltzifd Reviewed by Cat Gutierrez RPA on 08/14; All test results are final unless otherwise noted. ncPN REF [facility] Ordered by Cat Gutierrez RPA on 08/09/2020 Collected: 08/09/2020 Reported: 08/13/2020 15:26 T pallidum Ab Ser Ql Aggl See Note (Nonreactive) None Note: [id number] onreactiveResponsible Observer: TP-PA Treponema pallidum Ab (TP-PA) [id number] 908.0286 ([facility]) HIV1 RNA SerPl Ql ТАТЬЯНА+probe See Note None Note: TNPNo Reportable ResultLTNPNo Repo rtable ResultLLEP.LIVENTNPResponsible Observer: HIV 1 RNA, QL T HIV 1 RNA, QL TMA [id number] 908.0254 ([facility]) HBV surface Ag SerPl Ql IA See Note (NON-REACTIVE) None Note: KLB-CQEAIVLNBAO-[id number] 5NON-REACTIVEResponsible Observer: HBSAG Hepatitis B Surface Antigen 73250066 910.2004 ([facility]) RUBV IgG SerPl IA-aCnc 1.76 None Note: Index Interpretatio n ----- <0.90 Not consistent with immunity 0.90-0.99 Equivocal > or = 1.00 Consistent with immunityThe presence of rubella IgG antibody suggestsimmunization or past or current infection withrubella virus.THIS TEST WAS PERFORMED AT:[facility] [address]IRRCVX MERATI,MDResponsible Observer: Rubella IgG Ab Rubella IgG Ab [id number] 911.2840 ([facility]) HIV1 Ab SerPlBld Ql IA.rapid See Note None Note: TNPNo Reportable ResultLTNPNo Repo rtable ResultLLEP.LIVENTNPResponsible Observer: HIV 1 AB HIV 1 AB [id number] 908.0250 ([facility]) HBsAg Confirmation See Note None Note: TNPNo Reportable ResultLTNPNo Repo rtable ResultLLEP.LIVENTNPResponsible Observer: HBsAg Confirm HBsAg Confirmation [id number] ([facility]) HIV (1&2) Screen, 4th Gen NON-REACTIVE [...] for this purpose.For additional information please refer tohttp://education.Gather.md/faq/KGF775(This link is being provided for informational/educational purposes only.)The performance of this assay has not been clinicallyvalidated in patients less than 2 years old.THIS TEST WAS PERFORMED AT:[facility] [address]DARZRW MERATI,MDResponsible Observer: HIV ABS HIV (1&2) Screen, 4th Gen [id number] 908.0228 ([facility]) Reviewed by Cat Gutierrez RPA on 08/14; All test results are final unless otherwise noted. Reported Physicians [facility] Ordered by Cat Gutierrez RPA on 08/09/2020 Collected: 08/09/2020 Reported: 08/13/2020 15:27 Reported Physicians See Note None Note: Reported Physicians:Ordering: Jannet barton: Rigo Gutierrez To: Maya Barron Reviewed by Cat Gutierrez RPA on 08/14; All test results are final unless otherwise noted. HCV RFX ТАТЬЯНА [facility] Ordered by Cat Gutierrez RPA on 08/09/2020 Collected: 08/09/2020 Reported: 08/10/2020 17:47 HCV Ab Ser Ql See Note (NON-REACTIVE) None Note: GRE-JBRWTIPYZHK-[id number] 7NON-REACTIVEResponsible Observer: HEP C ANTIBODY Hepatitis C Antibody 33288375 914.8305 ([facility]) HCV RNA Qualitative (ТАТЬЯНА) 0.54 (<1.00) None Note: HCV antibody was non-reactive. The re is no laboratoryevidence of HCV infection.In most cases, no further action is required. However,if recent HCV exposure is suspected, a test for HCV RNA(test code 07901) is suggested.For additional information please refer tohttp://education.Gather.md/faq/NAN43d6(This link is being provided for informational/educational purposes only.)THIS TEST WAS PERFORMED AT:[facility] [address]KAMBCLAUDY CLAYTONesponsible Observer: SIG TO C/O SIGNAL TO CUTOFF [id number] 914.8341 ([facility]) NOTES See Note None Note: Patient Street Address: [address] [place] [address] [address]Patient City: [place] State: [facility] Zip Code: [address]Cjcrkwm Reviewed by Cat Gutierrez RPA on 08/12; All test results are final unless otherwise noted. Reported Physicians [facility] Ordered by Cat Gutierrez RPA on 08/09/2020 Collected: 08/09/2020 Reported: 08/10/2020 17:47 Reported Physicians See Note None Note: Reported Physicians:Ordering: Attchandler barton: Rigo Gutierrez To: Maya Barron Reviewed by Cat Gutierrez RPA on 08/12; All test results are final unless otherwise noted. Type and Screen [facility] Ordered by Cat Gutierrez RPA on [...] are final unless otherwise noted. Reported Physicians [facility] Ordered by Cat Gutierrez RPA on 08/09/2020 Collected: 08/09/2020 Reported: 08/09/2020 12:39 Reported Physicians See Note None Note: Reported Physicians:Ordering: Cat ConwayAttending: Rigo Gutierrez To: Maya Barron Reviewed by Cat Gutierrez RPA on 08/10; All test results are final unless otherwise noted. [facility], QUANTITATIVE [facility] Ordered by Cat Gutierrez RPA on 08/08/2020 Collected: 08/08/2020 Reported: 08/08/2020 11:53 B-HCG [facility] [address] MilliInternationalUnitsPerMilliLiter_[Arbitrary_Con (0-10) H (High) Note: @Instrument will [...] are final unless otherwise noted. Reported Physicians [facility] Ordered by Cat Gutierrez RPA on 08/08/2020 Collected: 08/08/2020 Reported: 08/08/2020 11:54 Reported Physicians See Note None Note: Reported Physicians:Ordering: Atte nding: Rigo Gutierrez To: Maya Barron Reviewed by Cat Gutierrez RPA on 08/08; All test results are final unless otherwise noted. [facility] Ordered by Cat Gutierrez RPA on 08/01/2020 Collected: 08/01/2020 Reported: 08/01/2020 02:26 B-HCG [facility] [address] MilliInternationalUnitsPerMilliLiter_[Arbitrary_Con (0-10) H (High) Note: @Instrument will [...] are final unless otherwise noted. Reported Physicians [facility] Ordered by Cat Gutierrez RPA on 08/01/2020 Collected: 08/01/2020 Reported: 08/01/2020 02:26 Reported Physicians See Note None Note: Reported Physicians:Ordering: Aj Ferreiraending: Jos Rivas To: Maya Barron Reviewed by Cat Gutierrez RPA on 08/01; All test results are final unless otherwise noted. Type and Screen [facility] Ordered by Cat Gutierrez RPA on [...] are final unless otherwise noted. Reported Physicians [facility] Ordered by Cat Gutierrez RPA on 08/01/2020 Collected: 08/01/2020 Reported: 08/01/2020 06:03 Reported Physicians See Note None Note: Reported Physicians:Ordering: Aj Ferreiraending: Jos Rivas To: Maya Barron Reviewed by Cat Gutierrez RPA on 08/01; All test results are final unless otherwise noted. CBC W AUTO DIFF [facility] Ordered by Cat Gutierrez RPA on [...] Auto See Note (0-2) N (Normal) Note: [id number] Ob websphere process server developer: IG% IG% 100.1375 (B) Hct [...] results are final unless otherwise noted. [facility] Ordered by Cat Gutierrez RPA [...] are final unless otherwise noted. Reported Physicians [facility] Ordered by Cat Gutierrez RPA on 08/01/2020 Collected: 08/01/2020 Reported: 08/01/2020 02:26 Reported Physicians See Note None Note: Reported Physicians:Ordering: Aj Ferreiraending: Jos Rivas To: Maya Barorn Reviewed by Cat Gutierrez RPA on 08/01; All test results are final unless otherwise noted. ADD ON MICROSCOPIC [facility] Ordered by Cat Gutierrez RPA on 08/01/2020 Collected: 08/01/2020 Reported: 08/01/2020 01:01 ADD ON MICROSCOPIC See Note (0-5) None Note: NOTES OTHER/NOT INTERPRETED Bacteria UrnS Ql Micro MODERATE AMOUNT Bacteria UrnS Ql Micro MODERATE AMOUNT Bacteria UrnS Ql Micro L Bacteria UrnS Ql Micro Bacteria UrnS Ql Micro Bacteria UrnS Ql Micro Bacteria UrnS Ql Micro [id number] Bacteria UrnS Ql Micro Bacteria UrnS Ql [...] are final unless otherwise noted. Reported Physicians [facility] Ordered by Cat Gutierrez RPA on 08/01/2020 Collected: 08/01/2020 Reported: 08/01/2020 01:01 Reported Physicians See Note None Note: Reported Physicians:Ordering: Aj Ferreiraending: Jos Rivas To: Maya Barron Reviewed by Cat Gutierrez RPA on 08/01; All test results are final unless otherwise noted. UA W/ CULTURE IF ABNORMAL [facility] Ordered by Cat Gutierrez RPA on 08/01/2020 Collected: 08/01/2020 Reported: 08/01/2020 01:01 Urobilinogen Ur Ql See Note (0.2-1 EU/dl) None Note: 0.2 EU/dl0.2 EU/[id number] E U/dlResponsible Observer: UROBILINOGEN UROBILINOGEN 300.4500 (C) RBC # Ur Strip SMALL (NEGATIVE) None Note: @DO MICRO!!!!Responsible Observer: BLOOD BLOOD 300.4652 (C) Prot Ur Ql Strip See Note (NEGATIVE) None Note: [id number] EResponsible Observer: PROTEIN PROTEIN 300.3750 (C) Ketones Ur Ql Strip See Note (NEGATIVE) None Note: 15 mg/dL15 mg/[id number] mg/d LResponsible Observer: KETONE KETONE 300.3900 (C) Bilirub Ur Ql Strip.auto See Note (NEGATIVE) None Note: [id number] EResponsible Observer: BILIRUBIN BILIRUBIN 300.4550 (C) Glucose Ur Strip.auto-mCnc NEGATIVE (NEGATIVE) None Note: Responsible Observer: GLUCOSE GLUC OSE 300.3850 (C) Appearance Ur See Note (CLEAR) None Note: CLEARCLEARLCLEARResponsible Observ er: APPEARANCE APPEARANCE 300.3400 (A) Color Ur See Note None Note: YELLOWYELLOWLYELLOWResponsible Obs erver: COLOR COLOR 300.3330 (A) Leukocyte esterase Ur Ql Strip See Note (NEGATIVE) None Note: [id number]@DO MICR O!!!!A Culture has been added to this specimen per established criteriaResponsible Observer: LEUKOCYTES LEUKOCYTES 300.3576 (C) Nitrite Ur Ql Strip See Note (NEGATIVE) None Note: [id number] EResponsible Observer: NITRITE NITRITE 300.3652 (B) pH [...] are final unless otherwise noted. Urine culture [facility] Ordered by Cat Gutierrez RPA on 08/01/2020 Collected: 08/01/2020 Reported: 08/02/2020 07:41 Urine culture result See Note None Note: Greater than 100,000 CFU/MLLactoba cilli no senst done NOTES See Note None Note: @08/01/20 0101: Urine culture adde d. RFLXG = CULT.ADD. Reviewed by Cat Gutierrez RPA on 08/02; All test results are final unless otherwise noted. Reported Physicians [facility] Ordered by Cat Gutierrez RPA on 08/01/2020 Collected: 08/01/2020 Reported: 08/02/2020 07:41 Reported Physicians See Note None Note: Reported Physicians:Ordering: Aj Ferreiraending: Jos Rivas To: Maya Barron Reviewed by Cat Gutierrez RPA on 08/02; All test results are final unless otherwise noted. [facility], QUANTITATIVE [facility] Ordered by Cat Gutierrez RPA on 07/31/2020 Collected: 07/31/2020 Reported: 07/31/2020 16:53 B-HCG [facility] [address] MilliInternationalUnitsPerMilliLiter_[Arbitrary_Con (0-10) H (High) Note: @Instrument will [...] are final unless otherwise noted. Reported Physicians [facility] Ordered by Cat Gutierrez RPA on 07/31/2020 Collected: 07/31/2020 Reported: 07/31/2020 16:53 Reported Physicians See Note None Note: Reported Physicians:Ordering: Atte oralia: Cat Gutierrez Reviewed by Cat Gutierrez RPA on 08/01; All test results are final unless otherwise noted. UA W/ CULTURE IF ABNORMAL [facility] Ordered by Cat Gutierrez RPA on 07/27/2020 Collected: 07/27/2020 Reported: 07/27/2020 21:36 Urobilinogen Ur Ql See Note (0.2-1 EU/dl) None Note: 0.2 EU/dl0.2 EU/[id number] E U/dlResponsible Observer: UROBILINOGEN UROBILINOGEN 300.4500 (C) RBC # Ur Strip NEGATIVE (NEGATIVE) None Note: Responsible Observer: BLOOD BLOOD 300.4652 (C) Prot Ur Ql Strip See Note (NEGATIVE) None Note: [id number] EResponsible Observer: PROTEIN PROTEIN 300.3750 (C) Ketones Ur Ql Strip See Note (NEGATIVE) None Note: [id number] EResponsible Observer: KETONE KETONE 300.3900 (C) Bilirub Ur Ql Strip.auto See Note (NEGATIVE) None Note: [id number] EResponsible Observer: BILIRUBIN BILIRUBIN 300.4550 (C) Glucose Ur Strip.auto-mCnc NEGATIVE (NEGATIVE) None Note: Responsible Observer: GLUCOSE GLUC OSE 300.3850 (C) Appearance Ur See Note (CLEAR) None Note: CLEARCLEARLCLEARResponsible Observ er: APPEARANCE APPEARANCE 300.3400 (A) Color Ur See Note None Note: YELLOWYELLOWLYELLOWResponsible Obs erver: COLOR COLOR 300.3330 (A) Leukocyte esterase Ur Ql Strip See Note (NEGATIVE) None Note: [id number]@DO MICR O!!!!A Culture has been added to this specimen per established criteriaResponsible Observer: LEUKOCYTES LEUKOCYTES 300.3576 (C) Nitrite Ur Ql Strip See Note (NEGATIVE) None Note: [id number] EResponsible Observer: NITRITE NITRITE 300.3652 (B) pH [...] of Collection:: Voided Reviewed by Cat Gutierrez [facility] on 07/31; All test results are final unless otherwise noted. Urine culture [facility] Ordered by Cat [facility] on 07/27/2020 Collected: 07/27/2020 Reported: 07/29/2020 07:36 Urine culture result 50,000 CFU/ML Lactobacilli no senst done None NOTES See Note None Note: @07/27/202136: Urine culture adde d. RFLXG = CULT.ADD. Reviewed by Cat [facility] on 07/31; All test results are final unless otherwise noted. Reported Physicians [facility] Ordered by Cat [facility] on 07/27/2020 Collected: 07/27/2020 Reported: 07/29/2020 07:37 Reported Physicians See Note None Note: Reported Physicians:Ordering: Daquan BustamanteAttending: Ariella Good To: Maya Barron Reviewed by Cat [facility] on 07/31; All test results are final unless otherwise noted. ADD ON MICROSCOPIC [facility] Ordered by [facility] on 07/27/2020 Collected: 07/27/2020 Reported: 07/27/2020 21:36 ADD ON MICROSCOPIC See Note (0-5) None Note: NOTES OTHER/NOT INTERPRETED Bacteria UrnS Ql Micro SMALL AMOUNT Bacteria UrnS Ql Micro SMALL AMOUNT Bacteria UrnS Ql Micro L Bacteria UrnS Ql Micro Bacteria UrnS Ql Micro Bacteria UrnS Ql Micro Bacteria UrnS Ql Micro [id number] Bacteria UrnS Ql Micro Bacteria UrnS Ql Micro SMALL AMOUNT Cells UrnS Micro MODERATE Cells UrnS Micro MODERATE Cells UrnS Micro MODERATE Cells UrnS Micro L Cells UrnS Micro Cells UrnS Micro Cells UrnS Micro Cells UrnS Micro Cells UrnS Micro WBC # Ur Manual OCCASIONAL Reason for ordering culture: Abnormal findings UA@07/27/208: UA W/ MICRO added. RFLXG = UMIC CIF.Method of Collection:: VoidedResponsible Observer: WBC WBC 300.5005 (A) Reviewed by Cat Gutierrez RPA on 07/28; All test results are final unless otherwise noted. Reported Physicians [facility] Ordered by Cat Gutierrez RPA on 07/27/2020 Collected: 07/27/2020 Reported: 07/27/2020 21:37 Reported Physicians See Note None Note: Reported Physicians:Ordering: Daquan BustamanteAttending: Daquan GoodCopy To: Maya Barron Reviewed by Cat Gutierrez RPA on 07/28; All test results are final unless otherwise noted. BHCG, QUANTITATIVE [facility] Ordered by Cat Gutierrez RPA on 07/27/2020 Collected: 07/27/2020 Reported: 07/27/2020 22:08 [facility] MilliInternationalUnitsPerMilliLiter_[Arbitrary_Con (0-10) H (High) Note: @Instrument [...] are final unless otherwise noted. Reported Physicians [facility] Ordered by Cat Gutierrez RPA on 07/27/2020 Collected: 07/27/2020 Reported: 07/27/2020 22:08 Reported Physicians See Note None Note: Reported Physicians:Ordering: Daquan BustamanteAttending: Ariella Good To: Maya Barron Reviewed by Cat Gutierrez RPA on 07/28; All test results are final unless otherwise noted. [facility] Ordered by Cat Gutierrez RPA [...] are final unless otherwise noted. Reported Physicians [facility] Lab Ordered by Cat Gutierrez RPA on 07/27/2020 Collected: 07/27/2020 Reported: 07/27/2020 20:37 Reported Physicians See Note None Note: Reported Physicians:Ordering: Daquan BustamanteAttending: Ariella Good To: Maya Barron Reviewed by Cat Gutierrez RPA on 07/28; All test results are final unless otherwise noted. Type and Screen [facility] Lab Ordered by Cat Gutierrez RPA on [...] are final unless otherwise noted. Reported Physicians [facility] Lab Ordered by Cat Gutierrez [facility] on 07/27/2020 Collected: 07/27/2020 Reported: 07/27/2020 20:48 Reported Physicians See Note None Note: Reported Physicians:Ordering: Daquan BustamanteAttending: Daquan GoodCopyifan To: Maya Barron Reviewed by Cat Gutierrez RPA on 07/28; All test results are final unless otherwise noted. CBC W AUTO DIFF [facility] Lab Ordered by Cat Gutierrez RPA on [...] Auto See Note (0-2) N (Normal) Note: [id number] Ob websphere process server developer: IG% IG% 100.1375 (B) Hct [...] are final unless otherwise noted. Reported Physicians [facility] Lab Ordered by Cat Gutierrez RPA on 07/27/2020 Collected: 07/27/2020 Reported: 07/27/2020 20:11 Reported Physicians See Note None Note: Reported Physicians:Ordering: Daquan BustamanteAttending: Ariella Good To: Maya Barron Reviewed by Cat Gutierrez RPA on 07/28; All test results are final unless otherwise noted. BHCG, QUANTITATIVE [facility] Lab Ordered by Maya Barron MD on 07/26/2020 Collected: 07/26/2020 Reported: 07/26/2020 16:48 B-HCG [facility] 4155 MilliInternationalUnitsPerMilliLiter_[Arbitrary_Con (0-10) H (High) Note: [...] are final unless otherwise noted. Reported Physicians [facility] Lab Ordered by Maya Barron MD on 07/26/2020 Collected: 07/26/2020 Reported: 07/26/2020 16:48 Reported Physicians See Note None Note: Reported Physicians:Ordering: Maya AlvarengaAttending: Maya Barron Reviewed by Maya Barron MD on 07/27; All test results are final unless otherwise noted. Extended hours FLU/COV2 NAAT [facility] Lab Ordered by Bandar Cleveland PA-C on 07/25/2020 Collected: 07/25/2020 Reported: 07/25/2020 18:47 Extended hours FLU/COV2 NAAT See Note None Note: TNPNo Reportable ResultLTNPNo Repo rtable AxbphdI1QOD Reviewed by Bandar Cleveland PA-C on ; All test results are final unless otherwise noted. Reported Physicians [facility] Lab Ordered by Bandar Cleveland PA-C on 07/25/2020 Collected: 07/25/2020 Reported: 07/25/2020 18:47 Reported Physicians See Note None Note: Reported Physicians:Ordering: Janice Wilsonending: Kami Cleveland To: Health, Public Reviewed by Bandar Cleveland PA-C on ; All test results are final unless otherwise noted. Sweta Raquel SARS/FLU [facility] Lab Ordered by Bandar Cleveland PA-C on 07/25/2020 Collected: 07/25/2020 Reported: 07/25/2020 18:47 Sweta Raquel SARS/FLU See Note None Note: Sweta Raquel is a rapid, automated q ualitative anddifferentiation of Influenza type A,B and ZABP-DFB-2QKER-RT-PCR testNORMAL VALUE IS "NOT DETECTED".Limitations of the sweta raquel Influenza A/B & JWNB-EWW-7xwcva method.Modifications to manufacturers recommendation and proceduresmay alter performance of the test.Negative results do not preclude Influenza A,B or SARS- QAY9ydsvigklrh and should not be used as the [...] out diseases caused by other bacterialor viral pathogens.30392-5JVZS-CuZ-3 RNA Resp Ql ТАТЬЯНА+probeLNNOSNo O rganisms [id number] Organisms Detected Reviewed by Bandar Cleveland PA-C on 1; All test results are final unless otherwise noted. Reported Physicians [facility] Lab Ordered by Bandar Cleveland PA-C on 07/25/2020 Collected: 07/25/2020 Reported: 07/25/2020 18:47 Reported Physicians See Note None Note: Reported Physicians:Ordering: Janice Wilsonending: Kami Cleveland To: Health, Public Reviewed by Bandar Cleveland PA-C on 1; All test results are final unless otherwise noted. CBC W AUTO DIFF [facility] Lab Ordered by Maya Barron MD on [...] Auto See Note (0-2) N (Normal) Note: [id number] Ob websphere process server developer: IG% IG% 100.1375 (B) Hct [...] are final unless otherwise noted. Reported Physicians [facility] Lab Ordered by Maya Barron MD on 07/22/2020 Collected: 07/22/2020 Reported: 07/22/2020 02:00 Reported Physicians See Note None Note: Reported Physicians:Ordering: Hong LandaverdeAttending: Alon Douglas To: Maya Barron Reviewed by Maya Barron MD on 07/24; All test results are final unless otherwise noted. Extended hours FLU/COV2 NAAT [facility] Lab Ordered by Maya Barron MD on 07/22/2020 Collected: 07/22/2020 Reported: 07/22/2020 01:29 Extended hours FLU/COV2 NAAT See Note None Note: TNPNo Reportable ResultLTNPNo Repo rtable VkfvprU1KXO Reviewed by Maya Barron MD on 07/24; All test results are final unless otherwise noted. Reported Physicians [facility] Lab Ordered by Maya Barron MD on 07/22/2020 Collected: 07/22/2020 Reported: 07/22/2020 01:29 Reported Physicians See Note None Note: Reported Physicians:Ordering: Hong LandaverdeAttending: Alon Douglas To: Maya Barron Reviewed by Maya Barron MD on 07/24; All test results are final unless otherwise noted. Sweta Raquel SARS/FLU [facility] Lab Ordered by Maya Barron MD on 07/22/2020 Collected: 07/22/2020 Reported: 07/22/2020 01:29 Sweta Raquel SARS/FLU See Note None Note: Sweta Raquel is a rapid, automated q ualitative anddifferentiation of Influenza type A,B and SBVR-ISV-7WBRR-RT-PCR testNORMAL VALUE IS "NOT DETECTED".Limitations of the sweta raquel Influenza A/B & FZUT-PQI-4oqiuu method.Modifications to manufacturers recommendation and proceduresmay alter performance of the test.Negative results do not preclude Influenza A,B or SARS- SWX2vweomsytow and should not be used as the [...] out diseases caused by other bacterialor viral pathogens.[id number]-MkS-8 RNA Resp Ql ТАТЬЯНА+probeLNNOSNo O rganisms [id number] Organisms Detected Reviewed by Maya Barron MD on 07/24; All test results are final unless otherwise noted. Reported Physicians [facility] Lab Ordered by Maya Barron MD on 07/22/2020 Collected: 07/22/2020 Reported: 07/22/2020 01:29 Reported Physicians See Note None Note: Reported Physicians:Ordering: Dominic Landaverdeending: Alon Douglas To: Maya Barron Reviewed by Maya Barron MD on 07/24; All test results are final unless otherwise noted. UA W/ CULTURE IF ABNORMAL [facility] Lab Ordered by Maya Barron MD on 07/22/2020 Collected: 07/22/2020 Reported: 07/22/2020 01:10 Urobilinogen Ur Ql See Note (0.2-1 EU/dl) None Note: 0.2 EU/dl0.2 EU/[id number] E U/dlResponsible Observer: UROBILINOGEN UROBILINOGEN 300.4500 (C) RBC # Ur Strip NEGATIVE (NEGATIVE) None Note: Responsible Observer: BLOOD BLOOD 300.4652 (C) Prot Ur Ql Strip See Note (NEGATIVE) None Note: [id number] EResponsible Observer: PROTEIN PROTEIN 300.3750 (C) Ketones Ur Ql Strip See Note (NEGATIVE) None Note: [id number] EResponsible Observer: KETONE KETONE 300.3900 (C) Bilirub Ur Ql Strip.auto See Note (NEGATIVE) None Note: [id number] EResponsible Observer: BILIRUBIN BILIRUBIN 300.4550 (C) Glucose Ur Strip.auto-mCnc NEGATIVE (NEGATIVE) None Note: Responsible Observer: GLUCOSE GLUC OSE 300.3850 (C) Appearance Ur See Note (CLEAR) None Note: CLEARCLEARLCLEARResponsible Observ er: APPEARANCE APPEARANCE 300.3400 (A) Color Ur See Note None Note: YELLOWYELLOWLYELLOWResponsible Obs erver: COLOR COLOR 300.3330 (A) Leukocyte esterase Ur Ql Strip See Note (NEGATIVE) None Note: [id number] EResponsible Observer: LEUKOCYTES LEUKOCYTES 300.3576 (C) Nitrite Ur Ql Strip See Note (NEGATIVE) None Note: [id number] EResponsible Observer: NITRITE NITRITE 300.3652 (B) pH [...] are final unless otherwise noted. Reported Physicians [facility] Lab Ordered by Maya Barron MD on 07/22/2020 Collected: 07/22/2020 Reported: 07/22/2020 01:11 Reported Physicians See Note None Note: Reported Physicians:Ordering: Dominic Landaverdeending: Alon Douglas To: Maya Barron Reviewed by Maya Barron MD on 07/24; All test results are final unless otherwise noted. Urine culture [facility] Lab Ordered by Maya Barron MD on 07/19/2020 Collected: 07/19/2020 Reported: 07/21/2020 07:48 Bacteria Ur Cult See Note None Note: NGNo growth.L1NG Reviewed by Maya Barron MD on 07/21; All test results are final unless otherwise noted. Reported Physicians [facility] Lab Ordered by Maya Barron MD on 07/19/2020 Collected: 07/19/2020 Reported: 07/21/2020 07:49 Reported Physicians See Note None Note: Reported Physicians:Ordering: Maya AlvarengaAttending: Maya Barron Reviewed by Maya Barron MD on 07/21; All test results are final unless otherwise noted. BHCG, QUANTITATIVE [facility] Lab Ordered by Maya Barron MD on [...] are final unless otherwise noted. Reported Physicians [facility] Ordered by Maya Barron MD on 07/17/2020 Collected: 07/17/2020 Reported: 07/17/2020 12:40 Reported Physicians See Note None Note: Reported Physicians:Ordering: Davidson AlvarengaynAttending: Maya Barron Reviewed by Maya Barron MD on 07/17; All test results are final unless otherwise noted. CUEVAS COVID-19 SCHOOL [facility] Lab Ordered by Maya Barron MD on [...] molecular test, if the virus mutates in [facility] region, Covid-19 may not be detected or may bedetected less predictably.ID NOW COVID-19 is intended for testing a swab directlywithout elution in viral transport media as dilution willresult in decreased detection of low positive samples thatare near the limit of detection of the test.SWAB SAMPLES ELUTED IN VTM ARE NOT APPROPRIATE FOR USE INTHIS TEST.NOSNo Organisms [id number] Organisms Detected Reviewed by Maya Barron MD on 05/31; All test results are final unless otherwise noted. Reported Physicians [facility] Lab Ordered by Maya Barron MD on 05/31/2020 Collected: 05/31/2020 Reported: 05/31/2020 07:08 Reported Physicians See Note None Note: Reported Physicians:Ordering: Johnny Hernándezending: Johnny CazaresCopyifan To: Maya Barron Reviewed by Maya Barron MD on 05/31; All test results are final unless otherwise noted. BHCG, QUANTITATIVE [facility] Lab Ordered by Maya Barron MD on 05/26/2020 Collected: 05/26/2020 Reported: 05/26/2020 14:49 B-[facility] 14434 MilliInternationalUnitsPerMilliLiter_[Arbitrary_Con (0-10) H (High) Note: @Instrument will [...] are final unless otherwise noted. Reported Physicians [facility] Lab Ordered by Maya Barron MD on 05/26/2020 Collected: 05/26/2020 Reported: 05/26/2020 14:50 Reported Physicians See Note None Note: Reported Physicians:Ordering: Maya AlvarengaAttending: Maya Barron Reviewed by Maya Barron MD on 05/26; All test results are final unless otherwise noted. URINALYSIS [facility] Lab Ordered by Maya Barron MD on 05/23/2020 Collected: 05/23/2020 Reported: 05/23/2020 17:19 Urobilinogen Ur Ql See Note (0.2-1 EU/dl) None Note: 0.2 EU/dl0.2 EU/[id number] E U/dlResponsible Observer: UROBILINOGEN UROBILINOGEN 300.4500 (C) RBC # Ur Strip NEGATIVE (NEGATIVE) None Note: Responsible Observer: BLOOD BLOOD 300.4650 (C) Prot Ur Ql Strip See Note (NEGATIVE) None Note: [id number] EResponsible Observer: PROTEIN PROTEIN 300.3750 (C) Ketones Ur Ql Strip See Note (NEGATIVE) None Note: [id number] EResponsible Observer: KETONE KETONE 300.3900 (C) Bilirub Ur Ql Strip.auto See Note (NEGATIVE) None Note: [id number] EResponsible Observer: BILIRUBIN BILIRUBIN 300.4550 (C) Glucose Ur Strip.auto-mCnc NEGATIVE (NEGATIVE) None Note: Responsible Observer: GLUCOSE GLUC OSE 300.3850 (C) Appearance Ur See Note (CLEAR) None Note: CLEARCLEARLCLEARResponsible Observ er: APPEARANCE APPEARANCE 300.3400 (A) Color Ur See Note None Note: YELLOWYELLOWLYELLOWResponsible Obs erver: COLOR COLOR 300.3300 (A) Leukocyte esterase Ur Ql Strip See Note (NEGATIVE) None Note: [id number] EResponsible Observer: LEUKOCYTES LEUKOCYTES 300.3575 (C) Nitrite Ur Ql Strip See Note (NEGATIVE) None Note: [id number] EResponsible Observer: NITRITE NITRITE 300.3650 (B) pH [...] are final unless otherwise noted. Urine culture [facility] Lab Ordered by Maya Barron MD on 05/23/2020 Collected: 05/23/2020 Reported: 05/24/2020 09:24 Bacteria Ur Cult See Note None Note: NGNo growth.L1NG Reviewed by Maya Barron MD on 05/29; All test results are final unless otherwise noted. MEDMATCH [facility] Lab Ordered by Maya Barron MD on 05/23/2020 Collected: 05/23/2020 Reported: 05/26/2020 17:09 MEDMATCH 1.000 (> or = 1.003) None Note: Responsible Observer: MEDMATCH MED MATCH [phone] ([facility]) Reviewed by Maya Barron MD on 05/29; All test results are final unless otherwise noted. Reported Physicians [facility] Lab Ordered by Maya Barron MD on 05/23/2020 Collected: 05/23/2020 Reported: 05/26/2020 17:09 Reported Physicians See Note None Note: Reported Physicians:Ordering: Maya AlvarengaAttending: Maya Barron Reviewed by Maya Barron MD on 05/29; All test results are final unless otherwise noted. Varicella-Zoster IgG Antibody [facility] Lab Ordered by Maya Barron MD on [...] Antibody Immunity Screen, ACIF.THIS TEST WAS PERFORMED AT:[place] [id number] ANTUNEZ RATI,MDResponsible Observer: VARICELLA IGG Varicella-Zoster IgG Antibody [id number] 777.1321 ([facility]) NOTES See Note None Note: Patient Street Address[facility] [address] [facility] [place] [facility] Zip Code: [address] Reviewed by Maya Barron MD on 05/26; All test results are final unless otherwise noted. Reported Physicians [facility] Lab Ordered by Maya Barron MD on 05/23/2020 Collected: 05/23/2020 Reported: 05/25/2020 17:11 Reported Physicians See Note None Note: Reported Physicians:Ordering: Maya AlvarengaAttending: Maya Barron Reviewed by Maya Barron MD on 05/26; All test results are final unless otherwise noted. CBC [facility] Lab Ordered by Maya Barron MD on [...] Auto See Note (0-2) N (Normal) Note: 0.20.7Y82476832019.2Responsible Ob websphere process server developer: IG% IG% 100.1375 (B) Hct [...] results are final unless otherwise noted. TSH [facility] Lab Ordered by Maya Barron MD on 05/23/2020 Collected: 05/23/2020 Reported: 05/23/2020 18:38 TSH SerPl DL<=0.005 mIU/L-aCnc 1.87 MicroInternationalUnitsPerMilliLiter_[Arbitrary_Con (0.35-5. 50) N (Normal) Note: Responsible Observer: TSH TSH 600 .7055 (D) Reviewed by Maya Barron MD on 05/29; All test results are final unless otherwise noted. Lead (Venous) Wh.Bld [facility] Ordered by Maya Barron MD on 05/23/2020 Collected: 05/23/2020 Reported: 05/25/2020 17:11 Lead Bld-sCnc <1 (<5) None Note: See Note 1Note 1This test was [facility] and its analytical performancecharacteristics have been determined by [facility]. It has not been cleared or approved by theA. This assay has been validated pursuant to the CLIAregulations and is used for clinical purposes.THIS TEST WAS PERFORMED AT:[facility] [id number] MERATI,MDResponsible Observer: Lead, WB Lead, Whole Blood [id number] 911.2190 ([facility]) NOTES See Note None Note: Patient Street Address: [facility] [address] City: [place]: [place]: [address] Reviewed by Maya Barron MD on 05/29; All test results are final unless otherwise noted. ncPN REF [facility] Lab Ordered by Maya Barron MD on 05/23/2020 Collected: 05/23/2020 Reported: 05/27/2020 20:54 T pallidum Ab Ser Ql Aggl See Note (Nonreactive) None Note: [id number] onreactiveResponsible Observer: TP-PA Treponema pallidum Ab (TP-PA) [id number] 908.0286 ([facility]) HIV1 RNA SerPl Ql ТАТЬЯНА+probe See Note None Note: TNPNo Reportable ResultLTNPNo Repo rtable ResultLLEP.LIVENTNPResponsible Observer: HIV 1 RNA, QL T HIV 1 RNA, QL TMA [id number] 908.0254 ([facility]) HBV surface Ag SerPl Ql IA See Note (NON-REACTIVE) None Note: TNU-DOAMZHWUVAA-[id number] 0NON-REACTIVEResponsible Observer: HBSAG Hepatitis B Surface Antigen [id number] 910.2004 ([facility]) RUBV IgG SerPl IA-aCnc 1.80 None Note: Index Interpretatio n ----- <0.90 Not consistent with Immunity 0.90-0.99 Equivocal > or = 1.00 Consistent with ImmunityThe presence of rubella IgG antibody suggestsimmunization or past or current infection withrubella virus.THIS TEST WAS PERFORMED AT:[facility] [address]FMRGPR MERATI,MDResponsible Observer: Rubella IgG Ab Rubella IgG Ab [id number] 911.2840 ([facility]) HIV1 Ab SerPlBld Ql IA.rapid See Note None Note: TNPNo Reportable ResultLTNPNo Repo rtable ResultLLEP.LIVENTNPResponsible Observer: HIV 1 AB HIV 1 AB [id number] 908.0250 ([facility]) HBsAg Confirmation See Note None Note: TNPNo Reportable ResultLTNPNo Repo rtable ResultLLEP.LIVENTNPResponsible Observer: HBsAg Confirm HBsAg Confirmation [id number] 910.2006 ([facility]) HIV (1&2) Screen, 4th Gen [...] for this purpose.For additional information please refer tohttp://education.[employer] [place].Prezacor/faq/GFQ286(This link is being provided for informational/educational purposes only.)The performance of this assay has not been clinicallyvalidated in patients less than 2 years old.Responsible Observer: HIV ABS HIV (1&2) Screen, 4th Gen [id number] 908.0228 (I) Reviewed by Maya Barron MD on 05/29; All test results are final unless otherwise noted. Reported Physicians [facility] Ordered by Maya Barron MD on 05/23/2020 Collected: 05/23/2020 Reported: 05/27/2020 20:54 Reported Physicians See Note None Note: Reported Physicians:Ordering: Cara Alvarengaending: Maya Barron Reviewed by Maya Barron MD on 05/29; All test results are final unless otherwise noted. HCV RFX ТАТЬЯНА [facility] Ordered by Maya Barron MD on 05/23/2020 Collected: 05/23/2020 Reported: 05/25/2020 17:11 HCV Ab Ser Ql See Note (NON-REACTIVE) None Note: TGJ-ZWSXVOVRZCR-[id number] 7NON-REACTIVEResponsible Observer: HEP C ANTIBODY Hepatitis C Antibody [id number] 914.8305 ([facility]) HCV RNA Qualitative (ТАТЬЯНА) 0.59 (<1.00) None Note: HCV antibody was non-reactive. The re is no laboratoryevidence of HCV infection.In most cases, no further action is required. However,if recent HCV exposure is suspected, a test for HCV RNA(test code 03693) is suggested.For additional information please refer tohttp://education.[employer].md/faq/YVW37x5(This link is being provided for informational/educational purposes only.)THIS TEST WAS PERFORMED AT:[facility] [address]KAJUANCHO MEANSMDResponsible Observer: SIG TO C/O SIGNAL TO CUTOFF [id number] 914.8383 ([facility]) NOTES See Note None Note: Patient Street Address: [facility] [address] City: [facility] State: [facility] Zip Code: [address] Reviewed by Maya Barron MD on 05/26; All test results are final unless otherwise noted. Reported Physicians [facility] Ordered by Maya Barron MD on 05/23/2020 Collected: 05/23/2020 Reported: 05/25/2020 17:11 Reported Physicians See Note None Note: Reported Physicians:Ordering: Maya AlvarengaAttending: Maya Barron Reviewed by Maya Barron MD on 05/26; All test results are final unless otherwise noted. Type and Screen [facility] Ordered by Maya Barron MD on [...] are final unless otherwise noted. Reported Physicians [facility] Ordered by Maya Barron MD on 05/23/2020 Collected: 05/23/2020 Reported: 05/23/2020 19:32 Reported Physicians See Note None Note: Reported Physicians:Ordering: Maya AlvarengaAttending: Maya Barron Reviewed by Maya Barron MD on 05/24; All test results are final unless otherwise noted. PROGESTERONE [facility] Ordered by Maya Barron MD on [...] are final unless otherwise noted. Reported Physicians [facility] Ordered by Maya Barron MD on 04/27/2020 Collected: 04/27/2020 Reported: 04/27/2020 15:58 Reported Physicians See Note None Note: Reported Physicians:Ordering: Johnny HernándezAttending: Jos Castellanos To: Rubén Barron To: Cristino Castellanos Reviewed by Maya Barron MD on 04/30; All test results are final unless otherwise noted. BHCG, QUANTITATIVE [facility] Ordered by Maya Barron MD on 04/27/2020 Collected: 04/27/2020 Reported: 04/27/2020 14:40 B[facility]CG [facility] 2353 MilliInternationalUnitsPerMilliLiter_[Arbitrary_Con (0-10) H (High) Note: @Instrument [...] are final unless otherwise noted. Reported Physicians [facility] Ordered by Maya Barron MD on 04/27/2020 Collected: 04/27/2020 Reported: 04/27/2020 14:40 Reported Physicians See Note None Note: Reported Physicians:Ordering: Cristino SnowAttending: Jos Castellanos To: Suzanne Cazares To: Maya Barron Reviewed by Maya Barron MD on 04/30; All test results are final unless otherwise noted. CBC W AUTO DIFF [facility] Ordered by Maya Barron MD on [...] Auto See Note (0-2) N (Normal) Note: [id number] Ob websphere process server developer: IG% IG% 100.1375 (B) Hct [...] results are final unless otherwise noted. [facility] Ordered by Maya Barron MD [...] are final unless otherwise noted. Reported Physicians [facility] Ordered by Maya Barron MD on 04/25/2020 Collected: 04/25/2020 Reported: 04/25/2020 22:11 Reported Physicians See Note None Note: Reported Physicians:Ordering: Aj Ferreiraending: Jos Rivas To: Maya Barron Reviewed by Maya Barron MD on 04/26; All test results are final unless otherwise noted. BHCG, QUANTITATIVE [facility] Ordered by Maya Barron MD on [...] are final unless otherwise noted. Reported Physicians [facility] Ordered by Maya Barron MD on 04/25/2020 Collected: 04/25/2020 Reported: 04/25/2020 22:11 Reported Physicians See Note None Note: Reported Physicians:Ordering: Aj Ferreiraending: Jos Rivas To: Maya Barron Reviewed by Maya Barron MD on 04/26; All test results are final unless otherwise noted. Urine culture [facility] Ordered by Maya Barron MD on 04/25/2020 Collected: 04/25/2020 Reported: 04/27/2020 04:50 Bacteria Ur Cult See Note None Note: NGNo growth.L1NG NOTES See Note None Note: @ NICOLE DATE was changed from 04/26 to 04/25/20@ by POMCY. Reviewed by Maya Barron MD on 04/30; All test results are final unless otherwise noted. Reported Physicians [facility] Ordered by Maya Barron MD on 04/25/2020 Collected: 04/25/2020 Reported: 04/27/2020 04:51 Reported Physicians See Note None Note: Reported Physicians:Ordering: Aj Ferreiraending: Jos Rivas To: Maya Barron Reviewed by Maya Barron MD on 04/30; All test results are final unless otherwise noted. ADD ON MICROSCOPIC [facility] Ordered by Maya Barron MD on 04/25/2020 Collected: 04/25/2020 Reported: 04/25/2020 21:54 ADD ON MICROSCOPIC See Note (0-5) None Note: NOTES OTHER/NOT INTERPRETED Bacteria UrnS Ql Micro SMALL AMOUNT Bacteria UrnS Ql Micro SMALL AMOUNT Bacteria UrnS Ql Micro L Bacteria UrnS Ql Micro Bacteria UrnS Ql Micro Bacteria UrnS Ql Micro Bacteria UrnS Ql Micro [id number] Bacteria UrnS Ql Micro Bacteria UrnS Ql [...] are final unless otherwise noted. Reported Physicians [facility] Ordered by Maya Barron MD on 04/25/2020 Collected: 04/25/2020 Reported: 04/25/2020 21:54 Reported Physicians See Note None Note: Reported Physicians:Ordering: Aj Ferreiraending: Jos Rivas To: Maya Barron Reviewed by Maya Barron MD on 04/26; All test results are final unless otherwise noted. URINALYSIS [facility] Ordered by Maya Barron MD on 04/25/2020 Collected: 04/25/2020 Reported: 04/25/2020 21:54 Urobilinogen Ur Ql See Note (0.2-1 EU/dl) None Note: 0.2 EU/dl0.2 EU/bpC44447103831.2 E U/dlResponsible Observer: UROBILINOGEN UROBILINOGEN 300.4500 (C) RBC # Ur Strip NEGATIVE (NEGATIVE) None Note: Responsible Observer: BLOOD BLOOD 300.4650 (C) Prot Ur Ql Strip See Note (NEGATIVE) None Note: [id number] EResponsible Observer: PROTEIN PROTEIN 300.3750 (C) Ketones Ur Ql Strip See Note (NEGATIVE) None Note: [id number] EResponsible Observer: KETONE KETONE 300.3900 (C) Bilirub Ur Ql Strip.auto See Note (NEGATIVE) None Note: [id number] EResponsible Observer: BILIRUBIN BILIRUBIN 300.4550 (C) Glucose Ur Strip.auto-mCnc NEGATIVE (NEGATIVE) None Note: Responsible Observer: GLUCOSE GLUC OSE 300.3850 (C) Appearance Ur See Note (CLEAR) None Note: CLEARCLEARLCLEARResponsible Observ er: APPEARANCE APPEARANCE 300.3400 (A) Color Ur See Note None Note: YELLOWYELLOWLYELLOWResponsible Obs erver: COLOR COLOR 300.3300 (A) Leukocyte esterase Ur Ql Strip See Note (NEGATIVE) None Note: [id number]@DO MICR O!!!!Responsible Observer: LEUKOCYTES LEUKOCYTES 300.3575 (C) Nitrite Ur Ql Strip See Note (NEGATIVE) None Note: [id number] EResponsible Observer: NITRITE NITRITE 300.3650 (B) pH [...] are final unless otherwise noted. Reported Physicians [facility] Ordered by Maya Barron MD on 04/25/2020 Collected: 04/25/2020 Reported: 04/25/2020 21:54 Reported Physicians See Note None Note: Reported Physicians:Ordering: Aj Ferreiraending: Jos Rivas To: Maya Barron Reviewed by Maya Barron MD on 04/26; All test results are final unless otherwise noted. BHCG, QUANTITATIVE [facility] Ordered by Maya Barron MD on [...] are final unless otherwise noted. Reported Physicians [facility] Ordered by Maya Barron MD on 04/18/2020 Collected: 04/18/2020 Reported: 04/18/2020 15:11 Reported Physicians See Note None Note: Reported Physicians:Ordering: Cara Alvarengaending: Maya Barron Reviewed by Maya Barron MD on 04/19; All test results are final unless otherwise noted. ADD ON MICROSCOPIC [facility] Ordered by Maya Barron MD on 04/16/2020 Collected: 04/16/2020 Reported: 04/16/2020 23:51 ADD ON MICROSCOPIC See Note (0-5) None Note: NOTES OTHER/NOT INTERPRETED Bacteria UrnS Ql Micro SMALL AMOUNT Bacteria UrnS Ql Micro SMALL AMOUNT Bacteria UrnS Ql Micro L Bacteria UrnS Ql Micro Bacteria UrnS Ql Micro Bacteria UrnS Ql Micro Bacteria UrnS Ql Micro [id number] Bacteria UrnS Ql Micro Bacteria UrnS Ql [...] are final unless otherwise noted. Reported Physicians [facility] Ordered by Maya Barron MD on 04/16/2020 Collected: 04/16/2020 Reported: 04/16/2020 23:52 Reported Physicians See Note None Note: Reported Physicians:Ordering: Randy Joseending: Alix Jose To: Maya Barron Reviewed by Maya Barron MD on 04/17; All test results are final unless otherwise noted. UA W/ CULTURE IF ABNORMAL [facility] Ordered by Maya Barron MD on 04/16/2020 Collected: 04/16/2020 Reported: 04/16/2020 23:51 Urobilinogen Ur Ql See Note (0.2-1 EU/dl) None Note: 0.2 EU/dl0.2 EU/[id number] E U/dlResponsible Observer: UROBILINOGEN UROBILINOGEN 300.4500 (C) RBC # Ur Strip NEGATIVE (NEGATIVE) None Note: Responsible Observer: BLOOD BLOOD 300.4652 (C) Prot Ur Ql Strip See Note (NEGATIVE) None Note: [id number] EResponsible Observer: PROTEIN PROTEIN 300.3750 (C) Ketones Ur Ql Strip See Note (NEGATIVE) None Note: [id number] ble Observer: KETONE KETONE 300.3900 (C) Bilirub Ur Ql Strip.auto See Note (NEGATIVE) None Note: [id number] EResponsible Observer: BILIRUBIN BILIRUBIN 300.4550 (C) Glucose Ur Strip.auto-mCnc NEGATIVE (NEGATIVE) None Note: Responsible Observer: GLUCOSE GLUC OSE 300.3850 (C) Appearance Ur See Note (CLEAR) None Note: CLEARCLEARLCLEARResponsible Observ er: APPEARANCE APPEARANCE 300.3400 (A) Color Ur See Note None Note: YELLOWYELLOWLYELLOWResponsible Obs erver: COLOR COLOR 300.3330 (A) Leukocyte esterase Ur Ql Strip See Note (NEGATIVE) None Note: [id number] E@DO MICRO!!!!A Culture has been added to this specimen per established criteriaResponsible Observer: LEUKOCYTES LEUKOCYTES 300.3576 (C) Nitrite Ur Ql Strip See Note (NEGATIVE) None Note: [id number] EResponsible Observer: NITRITE NITRITE 300.3652 (B) pH [...] are final unless otherwise noted. Urine culture [facility] Ordered by Maya Barron MD on 04/16/2020 Collected: 04/16/2020 Reported: 04/18/2020 06:47 Urine culture result See Note None Note: Less than 10,000 CFU/MLNormal Comm ensal FloraProbable contaminants no senst done NOTES See Note None Note: @04/16/202350: Urine culture adde d. RFLXG = CULT.ADD. Reviewed by Maya Barron MD on 04/18; All test results are final unless otherwise noted. Reported Physicians [facility] Ordered by Maya Barron MD on 04/16/2020 Collected: 04/16/2020 Reported: 04/18/2020 06:47 Reported Physicians See Note None Note: Reported Physicians:Ordering: Damon , VinodAttending: Damon, VinodCopy To: Maya Barron Reviewed by Maya Barron MD on 04/18; All test results are final unless otherwise noted. CBC W AUTO DIFF [facility] Ordered by Maya Barron MD on [...] Auto See Note (0-2) N (Normal) Note: [id number] Ob websphere process server developer: IG% IG% 100.1375 (B) Hct [...] results are final unless otherwise noted. BHCG, [facility] Ordered by Maya Barron [...] are final unless otherwise noted. Reported Physicians [facility] Ordered by Maya Barron MD on 04/16/2020 Collected: 04/16/2020 Reported: 04/16/2020 22:47 Reported Physicians See Note None Note: Reported Physicians:Ordering: Damon , VinodAttending: Damon, VinodCopy To: Maya Barron Reviewed by Maya Barron MD on 04/17; All test results are final unless otherwise noted. CMP [facility] Ordered by Maya Barron MD on [...] are final unless otherwise noted. Reported Physicians [facility] Ordered by Maya Barron MD on 04/16/2020 Collected: 04/16/2020 Reported: 04/16/2020 22:44 Reported Physicians See Note None Note: Reported Physicians:Ordering: Damon , VinodAttending: Damon, VinodCopy To: Maya Barron Reviewed by Maya Barron MD on 04/17; All test results are final unless otherwise noted. LIPASE [facility] Ordered by Maya Barron MD on 04/16/2020 Collected: 04/16/2020 Reported: 04/16/2020 22:44 Lipase SerPl-cCnc 107 enzyme_unit_per_liter (73-393) N (Normal) Note: Responsible Observer: Lipase Lipas e 400.2310 (G) Reviewed by Maya Barron MD on 04/17; All test results are final unless otherwise noted. Reported Physicians [facility] Ordered by Maya Barron MD on 04/16/2020 Collected: 04/16/2020 Reported: 04/16/2020 22:44 Reported Physicians See Note None Note: Reported Physicians:Ordering: Damon , VinodAttending: Damon, VinodCopy To: Maya Barron Reviewed by Maya Barron MD on 04/17; All test results are final unless otherwise noted. Type and Screen [facility] Ordered by Maya Barron MD on [...] are final unless otherwise noted. Reported Physicians [facility] Ordered by Maya Barron MD on 04/16/2020 Collected: 04/16/2020 Reported: 04/16/2020 23:09 Reported Physicians See Note None Note: Reported Physicians:Ordering: Jose E JoseodAttending: Damon VinodCopy To: Maya Barron Reviewed by Maya Barron MD on 04/17; All test results are final unless otherwise noted. [facility] Ordered by Maya Barron MD on 04/10/[address] [place] [address], [id number] Collected: 04/10/2020 Reported: 04/11/2020 11:35 tel : [...] test results are final unless otherwise noted. [facility] Ordered by Maya Barron MD on 04/10/[address] [place] [address], [id number] Collected: 04/10/2020 Reported: 04/11/2020 11:35 tel : [...] by Maya Barron MD on 04/10/2020 [address] [place], [address] Collected: 04/10/2020 Reported: 04/11/2020 11:35 tel : ext. [phone] TSH 1.336 uIu/mL (0.5-5.8) None Note: Responsible Observer: AW Reviewed by Maya Barron MD on 04/12; All test results are final unless otherwise noted. -[facility] Ordered by Maya Barron MD on 02/25/2020 Collected: 02/25/2020 Reported: 02/28/2020 15:53 C trach rRNA XXX Ql ТАТЬЯНА+probe See Note (NOT DETECTED) None Note: NOT DETECTEDNOT DETECTEDLNOT DETEC TEDNOT [id number] DETECTEDResponsible Observer: C.Trach RNA Chlamydia trachomatis DNA-ТАТЬЯНА [id number] 913.9900 ([facility]) N gonorrhoea rRNA XXX Ql ТАТЬЯНА+probe See Note (NOT DETECTED) None Note: NOT DETECTEDNOT DETECTEDLNOT DETEC TEDNOT [id number] DETECTEDResponsible Observer: GC RNA Neisseria gonorrhoeae DNA -ТАТЬЯНА [id number] 913.9905 ([facility]) Chlamydia/GC DNA Note SEE NOTE None Note: The analytical performance charact eristics of thisassay, when used to test SurePath(TM) specimens have beendetermined by [employer] The modifications havenot been cleared or approved by the FDA. This assay hasbeen validated pursuant to the CLIA regulations and isused for clinical purposes.For additional information, please refer tohttps://education.[employer] [place].Prez[employer]or/faq/REK205(This link is being provided for information/educational purposes only.)THIS TEST WAS PERFORMED AT:[facility] [address]CLAUDY ONEILLesponsible Observer: GC/Chlam Note Chlamydia/GC DNA Note [id number] 913.9907 (A) NOTES See Note None Note: Source Of Specimen: URINE Reviewed by Maya Barron MD on 02/28; All test results are final unless otherwise noted. Reported Physicians [facility] Ordered by Maya Barron MD on 02/25/2020 Collected: 02/25/2020 Reported: 02/28/2020 15:54 Reported Physicians See Note None Note: Reported Physicians:Ordering: Cara Alvarengaending: Maya Barron Reviewed by Maya Barron MD on 02/28; All test results are final unless otherwise noted. Urine culture-[facility] Ordered by Maya Barron MD on 02/25/2020 Collected: 02/25/2020 Reported: 02/26/2020 13:38 Urine culture result No growth None Reviewed by Myaa Barron MD on 02/27; All test results are final unless otherwise noted. Reported Physicians [facility] Ordered by Maya Barron MD on 02/25/2020 Collected: 02/25/2020 Reported: 02/26/2020 13:39 Reported Physicians See Note None Note: Reported Physicians:Ordering: Maya AlvarengaAttending: Maya Barron Reviewed by Maya Barron MD on 02/27; All test results are final unless otherwise noted. Test Office Lab Ordered by Maya Barron MD on 02/25/2020 [facility] [place], [address] Specimen Source: Urine Collected: 02/25/2020 Reporte d: 02/25/2020 11:15 tel:[phone] Urine HCG neg (negative) N (Normal) Reviewed by Maya Barron MD on 02/24; All test results are final unless otherwise noted. Urinalysis w/out microscopy Office Lab Ordered by Maya Barron MD on 02/25/2020 [address] [place], [address] Specimen Source: Urine Collected: 02/25/2020 Reporte d: 02/25/2020 11:02 tel:[phone] bilirubin neg (neg) N (Normal) blood neg (neg) N (Normal) glucose neg (neg) N (Normal) ketone neg (neg) N (Normal) leukocytes neg N (Normal) nitrites neg (neg) N (Normal) pH neg (5.0-8.5) N (Normal) protein neg (neg-trace) N (Normal) specific gravity neg (1.005-1.025) N (Normal) urobilinogen neg (.2-1) N (Normal) Reviewed by Maya Barron MD on 02/24; All test results are final unless otherwise noted. Urinalysis w/out microscopy Office [place] [address] [place] [address], [phone] Specimen Source: Urine Collected: Reported: 2020 11:41 [...] Procedures and Surgical History Includes: Procedures from 02/24/2020 through 02/23/2021 Procedures Code Diagnosis Performing Provider Service Location Service Date REVISIT- office visit KAYLEIGH 29 weeks gestatio n of Maya Barron MD [facility], [facility] 01/16/2021 REVISIT- office visit KAYLEIGH 27 weeks gestatio n of Maya Barron MD [facility], [facility] 12/26/2020 REVISIT- office visit KAYLEIGH 23 weeks gestatio n of Maya Barron MD [facility], [facility] 12/05/2020 REVISIT- office visit KAYLEIGH 22 weeks gestatio n of Maya Barron MD [facility], [facility] 11/28/2020 no charge procedure NC Tension-type headache, unspe cified, intractable Maya Barron MD [facility], [facility] 11/21/2020 REVISIT- office visit KAYLEIGH 21 weeks gestatio n of Maya Barron MD [facility], [facility] 11/21/2020 REVISIT- office visit KAYLEIGH 20 weeks gestatio n of Maya Barron MD [facility], [facility] 11/14/2020 no charge procedure NC Palpitations Maya Barron MD [facility], [facility] 11/03/2020 no charge procedure NC Palpitations Maya Barron MD [facility], [facility] 10/31/2020 REVISIT- office visit KAYLEIGH 18 weeks gestatio n of Maya Barron MD [facility], [facility] 10/31/2020 REVISIT- office visit KAYLEIGH 17 weeks gestatio n of Maya Barron MD [facility], [facility] 10/24/2020 no charge procedure NC Palpitations Maya Barron MD [facility], [facility] 10/17/2020 REVISIT- office visit KAYLEIGH 16 weeks gestatio n of Maya Barron MD [facility], [facility] 10/17/2020 Holter Monitor, Physician review & interpretation only 37363 Palpitations Michel Villalba MD [facility] Out[facility] 10/11/2020 REVISIT- office visit KAYLEIGH 15 weeks gestatio n of Maya Barron MD [facility], [facility] 10/11/2020 REVISIT- office visit KAYLEIGH 13 weeks gestatio n of Maya Barron MD [facility], [facility] 09/27/2020 REVISIT- office visit KAYLEIGH 12 weeks gestatio n of Maya Barron MD [facility], [facility] 09/19/2020 EKG- Electrocardiogram/12 lead 50813 Chest pain, unspe cified Cat Gutierrez [facility], [facility] 09/11/2020 REVISIT- office visit KAYLEIGH 10 weeks gestatio n of Cat Gutierrez [facility], [facility] 09/05/2020 REVISIT- office visit KAYLEIGH 8 weeks gestation of Maya Barron MD [facility], [facility] 08/22/2020 Urinalysis w/o Microscopy (Distinct Seperate service-same da y) 76311 Frequency of micturition- Urinary Frequency Maya Barron MD [facility], [facility] 08/15/2020 RAPID STREP 10631 Acute pharyngitis, unspecified Maya Barron MD [facility], [facility] 08/15/2020 Initial Obstetrical Care Office Visit OB Le ss than 8 weeks gestation of Cat De Pazing [facility], [facility] 021 Urinalysis w/o Microscopy 91985 Frequency of micturiti on- Urinary Frequency Maya Barron MD [facility], [facility] 07/19/2020 REVISIT- office visit KAYLEIGH Threatened Alicja Barron MD [facility], [facility] 05/26/2020 NO CHARGE- Nurse visit- OB establish [employer] Thr eatened , state, incidental Myaa Barron MD [facility], [facility] 020 General Health Panel( CMP, CBC, TSH) 81664 Dysmenorrhe a, unspecified Maya Barron MD [facility], [facility] 04/10/2020 Venipuncture (routine) 84889 Dysmenorrhea, unspecified Davidson Barron MD [facility], [facility] 04/10/2020 Brief Emotional Behavior Assessment 60582 Scre ening for Mental Health/Behavioral Disorder, Unspecified Maya Barron MD [facility], [facility] 04/10/2020 Urine Test 22111 Pelvic and perineal pain, Frequency of micturition- Urinary Frequency Maya Barron MD [facility], [facility] 02/25/2020 Urinalysis w/o Microscopy 37589 Frequency of micturiti on- Urinary Frequency Maya Barron MD [facility], [facility] 02/25/2020 Surgical History Last Updated No surgical / [...] 2 01/16/2021 Left Deltoid Complete (A dministered) [facility] Varicella 1 04/18/2000 Complete (Reported) Patient Varicella 2 04/29/2016 Complete (Reported) Patient Allergies Includes: Active, inactive, and resolved Allergies Substance Type Reaction Onset Date - Time Resolved Date - Ti me Status Naproxen Allergy Skin Rashes 02/01/2020 - 12:00AM Act marquita Encounters Includes: Encounters from 02/24/2020 through 02/23/2021 Encounter Provider Location Date Check-In Time Check-Out Time D iagnosis REVISIT- Routine (OB) Visit Maya Barron MD [facility], [facility] 02/23/2021 2:25PM 01/16/2021 11:59PM REVISIT- Routine (OB) Visit Maya Barron MD [facility], [facility] 01/16/2021 9:52AM 10:23AM Telehealth communication Maya Barron MD [facility], [facility] 01/09/2021 12/26/2020 10:00AM 10:27AM Generalized Anxiety Disorder, Chest Pain, Iron Deficiency Anemia, Upper Respiratory Infection REVISIT- Routine (OB) Visit Maya Barron MD [facility], [facility] 12/26/2020 9:45AM 10:08AM telephone conversation Michel Villalba MD 1 12/14/2020 9:13AM 12/14/2020 11:59PM Atypical Chest Pain telephone conversation Michel Villalba MD 1 12/14/2020 6:45PM 12/14/2020 11:59PM Hypotension telephone conversation Maya Barron MD [facility] Vinh caruso [facility] 12/19/2020 12/14/2020 2:14PM 12/14/2020 11:59PM Fracture of Fifth Ce rvical Vertebral Body, History of Psychiatric Disorders, Reactive Airway Disease Problem visit - not contagious [facility] 12/14/2020 2:08PM 2:52PM Tension-type Headach e REVISIT- Routine (OB) Visit Maya Barron MD [facility], [facility] 12/05/2020 11:17AM 12:08PM REVISIT- Routine (OB) Visit Maya Barron MD [facility], [facility] 11/28/2020 1:34PM 1:51PM Chronic Care Mgt - Office Visit Maya Barron MD [facility], [facility] 11/21/2020 2:10PM 2:35PM Fracture of Fift h Cervical Vertebral Body, History of Psychiatric Disorders, Reactive Airway Disease REVISIT- Routine (OB) Visit Maya Barron MD [facility], [facility] 11/21/2020 11:33AM 12:01PM REVISIT- Routine (OB) Visit Maya Barron MD [facility], [facility] 11/14/2020 9:55AM 10:36AM REVISIT- Routine (OB) Visit Maya Barron MD [facility], [facility] 11/07/2020 11:42AM 12:02PM OB- ILL VISIT Maya Barron MD [facility], [facility] 11/03/2020 3:45PM 4:29PM , Generalized Anxie ty Disorder, Panic Disorder, Chest Pain Chronic Care Mgt - Office Visit Maya Barron MD [facility], [facility] 11/03/2020 2:37PM 3:38PM Chronic Care Mgt - Office Visit Maya Barron MD [facility], [facility] 10/31/2020 3:23PM 3:24PM Fracture of Fift h Cervical Vertebral Body, History of Psychiatric Disorders, Reactive Airway Disease REVISIT- Routine (OB) Visit Maya Barron MD [facility], [facility] 10/31/2020 9:54AM 10:24AM Chronic Care Mgt - Office Visit Maya Barron MD [facility], [facility] 10/24/2020 2:16PM 11:59PM REVISIT- Routine (OB) Visit Maya Barron MD [facility], [facility] 10/24/2020 10:00AM 10:47AM REVISIT- Routine (OB) Visit Maya Barron MD [facility], [facility] 10/17/2020 11:24AM 12:12PM Chronic Care Mgt - Office Visit Maya Barron MD [facility], [facility] 10/17/2020 11:25AM 12:11PM Fracture of Fift h Cervical Vertebral Body, History of Psychiatric Disorders, Reactive Airway Disease REVISIT- Routine (OB) Visit Maya Barron MD [facility], [facility] 10/11/2020 9:44AM 10:15AM OB- ILL VISIT Maya Barron MD [facility], [facility] 10/04/2020 2:12PM 2:31PM Presyncope Syndrome, Tachyca rdia, Palpitations, Difficulty Breathing (Dyspnea), Weeks of Gestation - 14 REVISIT- Routine (OB) Visit Maya Barron MD [facility], [facility] 09/27/2020 1:36PM 1:59PM telephone conversation Michel Villalba MD 09/19/2020 9:43PM 09/19/2020 11:59PM Atypical Chest Pain REVISIT- Routine (OB) Visit Maya Barron MD [facility], [facility] 09/19/2020 9:48AM 10:14AM REVISIT- Routine (OB) Visit Cat Gutierrez [facility], [facility] 09/11/2020 3:22PM 4:16PM REVISIT- Routine (OB) Visit Cat Gutierrez [facility], [facility] 09/05/2020 9:37AM 10:00AM TCMNV phone call- NO CHARGE Cat Gutierrez [facility] 09/04/2020 09/05/2020 4:54PM 09/05/2020 11:59PM [Patient Encounter] Cat Gutierrez [facility] 08/31/2020 021 2:21PM 08/22/2020 11:59PM telephone conversation Michel Villalba MD 08/2808/22/2020 11:00AM 08/22/2020 11:59PM REVISIT- Routine (OB) Visit Maya Barron MD [facility] 08/22/2020 1:56PM 2:19PM sick visit Maya Barron MD [facility] 0 08/15/2020 9:36AM 10:12AM Upper Respiratory Infection Acute, Pollakiuria Obstetrics/ first visit Cat Huston [facility] 08/09/2020 9:22AM 10:56AM followup Cat Huston Gutierrez [facility] 0 08/02/2020 10:18AM 11:42AM Generalized Anxiety Disorder , Early Stage, Abdominal Pain telephone conversation Michel Villalba MD 07/26/2020 7:59AM 07/26/2020 11:59PM [Patient Encounter] Cat Huston Brenda [facility] 07/28/2020 021 2:20PM 07/26/2020 11:59PM followup Maya Barron MD [facility] 0 07/26/2020 10:39AM 11:02AM , Generalized Anxie ty Disorder sick visit Bandar Cleveland PA-C [facility] 3:36PM 4:30PM Pyrexia followup Maya Barron MD [facility] 0 07/19/2020 10:52AM 11:30AM , Generalized Anxie ty Disorder, Pollakiuria followup Maya Barron MD [facility] 1 09/11/2019 10:43AM 11:14AM Atypical Chest Pain, Adjustm ent Disorder followup Maya Barron MD [facility] 1 08/07/2019 10:43AM 10:59AM Missed followup Maya Barron MD [facility] 05/26 1:45PM 2:11PM with Threatened Problem visit - not contagious Maya Barron MD [facility] 05/24/2020 11:13AM 12:00PM with T hreatened [Patient Encounter] Maya Barron MD 05/24/2020 020 10:17AM 04/19/2020 11:59PM followup Maya Barron MD [facility] 1 11:51AM 12:08PM ANNUAL PE-followup /30 Maya Barron MD [facility] 04/10/2020 8:42AM 9:13AM Routine History and Physical Adult (18 - 64 Yrs), Dysmenorrhea sick visit Maya Barron MD [facility] 0 03/06/2020 3:32PM 3:42PM Sinusitis sick visit Maya Barron MD [facility] 0 02/25/2020 10:46AM 11:12AM Pollakiuria, Female Pelvic P ain Insurance Includes: Active Insurance Policies Plan Name Member ID Group # Subscriber Relationship Effective Da greg 1 - MANAGED MEDICAID [facility] [id number] Georgiana Pickard Self 07/14/2020 - Unknown Advance Directives Includes: Current Advance DirectivesNo Advance Directives Recorded Health Concerns Includes: Active Health ConcernsNo Active Health Concerns Recorded Goals Includes: Active GoalsNo Active Goals Recorded Interventions Includes: Interventions for active GoalsNo Interventions Recorded Evaluations & Outcomes Includes: Evaluations & Outcomes for active GoalsNo Outcomes Recorded
--- OUTSIDE RECORDS SUMMARY | 2021-04-29 16:45 | CCD ---
Author Author [facility] Organization [facility] Address [address] [place] [address] Phone Care Team Providers Care Registry Nurse Name Role Phone Anderson GILL, Maya Duke PP [phone] Kimberly White DPM Unavailable Unavailable Reason for [...] Results Due Ordering Provi yaima Outside Labs 1hr GTT (50mg load Non-Fasting) state , incidental 01/02/21 Maya Barron MD Outside Labs CBC with differential state, incidental 01/02 Maya Barron MD Future Appointments Date Time Location Provider REVISIT- [facility]21 10:00AM [facility], [facility] Barron MD followup 02/13/2021 10:00AM [facility], SOLE Barron MD REVISIT- Routine (OB) Visit 02/20/2021 11:45AM [facility], SOLE Barron MD REVISIT- Routine (OB) Visit 02/27/2021 10:00AM [facility], SOLE Gutierrez RPA REVISIT- Routine (OB) Visit 03/06/2021 10:00AM [facility], SOLE Barron MD REVISIT- Routine (OB) Visit 03/13/2021 10:00AM [facility], SOLE Barron MD REVISIT- Routine (OB) Visit 03/20/2021 10:00AM [facility], SOLE Gutierrez RPA REVISIT- Routine (OB) Visit 03/27/2021 10:00AM [facility], SOLE Barron MD Findings Encounter Date Community resources No referrals needed at this time Chronic Care Mgt - Office Visit with Maya Barron MD 10/17/2020 Follow-up visit date 10/17/2020 PCP mukuli t and CCM visit (Dr. Barron and Esther Howell RN) Chronic Care Mgt - Office Visit with [...] Care Mgt - Office Vi sit with Myaa Barron MD 10/31/2020 Fracture of fifth cervical [...] surance provided today. 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 [Encounter for general adult medical examination with abnormal findings] ANNUAL PE-followup exam with Maya Barron MD 04/07/2019 [facility] Pharyngitis urgent visit with Bandar Cleveland PA-C 2018 Sprained ribs ; left sick visit with [facility] Strain of muscle and tendon of front wall of thorax si ck visit with [facility] 10/30/2018 Fracture of fifth cervical vertebral body No Fault with Wanda argueta [facility] 03/04/2018 Late effects of accident No Fault with [facility] 0 03/04/2018 Instructions Instructions not supported [...] Recorded Vital Signs Includes: Vital Signs from 01/17/2020 through 01/16/2021 Vital Name 01/16/2021 10:00A 12/26/2020 09:58A 12/14/2020 02:15P 12/05/2020 11:47A 11/28/2020 01:44P Blood Pressure Sitting (mmHg) 102/64 102/50 Pulse Rate-Sitting (bpm) 95 88 98 80 88 Respiration Rate (breaths/min) 18 20 20 20 20 Weight (lb) 133 130 126.6 126 123 Blood Pressure Sitting L 98/62 100/62 BP Cuff Size Regular Regular Regular Oxygen Saturation (%) 98 Blood Pressure Sitting R 92/60 Vital Name 11/21/2020 11:41A 11/14/2020 10:01A 11/07/2020 11:52A 11/03/2020 04:01P 10/31/2020 10:02A Pulse Rate-Sitting (bpm) 76 72 80 80 88 Respiration Rate (breaths/min) 20 20 20 20 20 Weight (lb) 122 121 121 117 120 Blood Pressure Sitting L 100/60 92/54 100/62 100/60 BP Cuff Size Regular Regular Regular Regular Regular Blood Pressure Sitting R 100/60 Vital Name 10/24/2020 10:12A 10/17/2020 11:34A 10/11/2020 09:56A 10/04/2020 02:18P 09/27/2020 01:44P Pulse Rate-Sitting (bpm) 80 80 76 116 76 Respiration Rate (breaths/min) 20 20 20 24 20 Weight (lb) 120 118 120 118 120 Blood Pressure Sitting L 100/60 110/56 110/60 98/62 BP Cuff Size Regular Regular Regular Regular Regular Blood Pressure Sitting R 100/60 Vital Name 09/19/2020 09:58A 09/11/2020 03:39P 09/05/2020 09:48A 08/22/2020 02:14P 08/15/2020 09:54A Blood Pressure Sitting (mmHg) 104/60 110/68 112/60 100/72 Pulse Rate-Sitting (bpm) 76 78 72 Respiration Rate (breaths/min) 20 18 Weight (lb) 119 118 119 121 Blood Pressure Sitting L 100/60 BP Cuff Size Regular Temp-Tympanic (F) 97.3 Vital Name 08/09/2020 09:27A 08/02/2020 10:58A 07/26/2020 10:46A 07/25/2020 04:09P 07/19/2020 11:05A Blood Pressure Sitting (mmHg) 90/50 98/60 118/76 116/80 Pulse Rate-Sitting (bpm) 72 64 86 80 114 Respiration Rate (breaths/min) 20 20 18 20 18 Weight (lb) 121 123 124 126 121.6 Blood Pressure Sitting L 102/62 BP Cuff Size Regular Oxygen Saturation (%) 98 98 Temp-Tympanic (F) [...] Temp-Oral (F) 98.5 Vital Name 04/10/2020 08:48A 03/06/2020 03:38P 02/25/2020 10:59A 02/01/2020 02:38P Blood Pressure Sitting (mmHg) 118/82 Pulse Rate-Sitting (bpm) 72 102 72 88 Respiration Rate (breaths/min) 20 20 20 Weight (lb) 116.2 Oxygen Saturation (%) 97 Height (in) 64 Body Mass Index (kg/m2) 19.9 Body Surface Area (m2) 1.55 Pain Level 6 Results Includes: Results from 01/17/2020 through 01/16/2021 TSH w/ reflex to Free T4 [facility] Ordered by Maya Barron MD on 01/11/2021 Collected: 01/11/2021 Reported: 01/11/2021 17:30 TSH SerPl DL<=0.005 mIU/L-aCnc 1.05 MicroInternationalUnitsPerMilliLiter_[Arbitrary_Con (0.35-5. 50) N (Normal) Note: Responsible Observer: TSH TSH 600 .7060 (D) NOTES See Note None Note: Test(s[place] [address] Reviewed by Maya Barron MD on 01/12; All test results are final unless otherwise noted. Reported Physicians [facility] Ordered by Maya Barron MD on 01/11/2021 Collected: 01/11/2021 Reported: 01/11/2021 17:30 Reported Physicians See Note None Note: Reported Physicians:Ordering: Les Vanegas: Fady Raza To: Maya Barron Reviewed by Maya Barron MD on 01/12; All test results are final unless otherwise noted. TROPONIN [facility] Ordered by Maya Barron MD on 01/11/2021 Collected: 01/11/2021 Reported: 01/11/2021 17:30 Troponin I SerPl-mCnc Less Than 0.015 (0.00-0.09) N (Normal) Note: Less than 0.09 NG/ML Negative 0.10 - 0.77 NG/ML High Risk0.78 NG/ML or Greater PositiveThe WHO defined the cutoff (definition for diagnosis of ID)for this method as 0.78 ng/ml.Responsible Observer: Troponin I Troponin I 600.1101 (G) NOTES See Note None Note: Test(s)[place] [address] Reviewed by Maya Barron MD on 01/12; All test results are final unless otherwise noted. Reported Physicians [facility] Ordered by Maya Barron MD on 01/11/2021 Collected: 01/11/2021 Reported: 01/11/2021 17:30 Reported Physicians See Note None Note: Reported Physicians:Ordering: Les Vanegas: Fady Raza To: Maya Barron Reviewed by Maya Barron MD on 01/12; All test results are final unless otherwise noted. CBC W AUTO DIFF [facility] Ordered by Maya Barron MD on [...] Auto See Note (0-2) N (Normal) Note: [id number] Ob senior sql server developer: IG% IG% 100.1375 (B) [...] test results are final unless otherwise noted. [facility] Ordered by Maya Barron [...] N (Normal) Note: @Reenter manual test result: 135@b y Jia Lentz at 01/11/21 1729.Responsible Observer: Sodium [...] NOTES See Note None Note: Test(s)[place] [address] Reviewed by Maya Barron MD on 01/12; All test results are final unless otherwise noted. Reported Physicians [facility] Ordered by Maya Barron MD on 01/11/2021 Collected: 01/11/2021 Reported: 01/11/2021 17:30 Reported Physicians See Note None Note: Reported Physicians:Ordering: Les Vanegastending: Fady Raza To: Maya Barron Reviewed by Maya Barron MD on 01/12; All test results are final unless otherwise noted. UA W/ CULTURE IF ABNORMAL [facility] Ordered by Maya Barron MD on 12/28/2020 Collected: 12/28/2020 Reported: 12/28/2020 21:56 Urobilinogen Ur Ql See Note (0.2-1 EU/dl) None Note: 0.2 EU/dl0.2 EU/[id number] E U/dlResponsible Observer: UROBILINOGEN UROBILINOGEN 300.4500 (C) RBC # Ur Strip NEGATIVE (NEGATIVE) None Note: Responsible Observer: BLOOD BLOOD 300.4652 (C) Prot Ur Ql Strip See Note (NEGATIVE) None Note: [id number] EResponsible Observer: PROTEIN PROTEIN 300.3750 (C) Ketones Ur Ql Strip See Note (NEGATIVE) None Note: [id number] EResponsible Observer: KETONE KETONE 300.3900 (C) Bilirub Ur Ql Strip.auto See Note (NEGATIVE) None Note: [id number] EResponsible Observer: BILIRUBIN BILIRUBIN 300.4550 (C) Glucose Ur Strip.auto-mCnc 250 mg/dl (NEGATIVE) None Note: Responsible Observer: GLUCOSE GLUC OSE 300.3850 (C) Appearance Ur See Note (CLEAR) A (Abnormal) Note: TURBIDTURBIDLTURBIDResponsible Obs erver: APPEARANCE APPEARANCE 300.3400 (A) Color Ur See Note None Note: YELLOWYELLOWLYELLOWResponsible Obs erver: COLOR COLOR 300.3330 (A) Leukocyte esterase Ur Ql Strip See Note (NEGATIVE) None Note: [id number]@DO MICR O!!!!A Culture has been added to this specimen per established criteriaResponsible Observer: LEUKOCYTES LEUKOCYTES 300.3576 (C) Nitrite Ur Ql Strip See Note (NEGATIVE) None Note: [id number] EResponsible Observer: NITRITE NITRITE 300.3652 (B) pH [...] are final unless otherwise noted. Urine culture [facility] Ordered by Maya Barron MD on 12/28/2020 Collected: 12/28/2020 Reported: 12/30/2020 08:03 Urine culture result 25,000 CFU/ML Lactobacilli no senst done None NOTES See Note None Note: @12/28/202155: Urine culture adde d. RFLXG = CULT.ADD. Reviewed by Maya Barron MD on 01/01; All test results are final unless otherwise noted. Reported Physicians [facility] Ordered by Maya Barron MD on 12/28/2020 Collected: 12/28/2020 Reported: 12/30/2020 08:03 Reported Physicians See Note None Note: Reported Physicians:Ordering: Sana Recinosending: Sammie Ann To: Maya Barron Reviewed by Maya Barron MD on 01/01; All test results are final unless otherwise noted. ADD ON MICROSCOPIC [facility] Ordered by Maya Barron MD on [...] Ql Micro Amorph Sed UrnS Ql Micro [id number] Amorph Sed UrnS Ql Micro Amorph Sed UrnS Ql Micro LARGE AMT URATES Bacteria UrnS Ql Micro SMALL AMOUNT Bacteria UrnS Ql Micro SMALL AMOUNT Bacteria UrnS Ql Micro L Bacteria UrnS Ql Micro Bacteria UrnS Ql Micro Bacteria UrnS Ql Micro Bacteria UrnS Ql Micro [id number] Bacteria UrnS Ql Micro Bacteria UrnS Ql [...] are final unless otherwise noted. Reported Physicians [facility] Ordered by Maya Barron MD on 12/28/2020 Collected: 12/28/2020 Reported: 12/28/2020 21:56 Reported Physicians See Note None Note: Reported Physicians:Ordering: Sana Recinosending: [facility] To: Maya Barron Reviewed by Maya Barron MD on 01/01; All test results are final unless otherwise noted. Cepheid SARS/FLU/RSV RT-PCR [facility] Ordered by Maya Barron MD on [...] FDA under an EUA for use byauthorized [id number] CoV RNA Resp Ql ТАТЬЯНА+oatzhMTHCVKIQJSB-DQT-7 NOT [id number]-VIT-5 NOT [id number] RNA Resp Ql ТАТЬЯНА+probeLNNFLUAInfluenza A Not Det [id number] A Not Uxivihrp31982-2MHKVV RNA Resp Ql ТАТЬЯНА+probeLNNINBInfluenza B Not [id number] B Not Gahredjk37492- 2RSV RNA Resp Ql ТАТЬЯНА+probeLNNRSVRSV Not [id number] Not Detected Reviewed by Maya Barron MD on 01/01; All test results are final unless otherwise noted. Reported Physicians [facility] Ordered by Maya Barron MD on 12/28/2020 Collected: 12/28/2020 Reported: 12/28/2020 22:13 Reported Physicians See Note None Note: Reported Physicians:Ordering: Sana Recinosending: Sammie Ann To: Maya Barron Reviewed by Maya Barron MD on 01/01; All test results are final unless otherwise noted. CBC W AUTO DIFF [facility] Ordered by Maya Barron MD on [...] Auto See Note (0-2) N (Normal) Note: 0.30.9G94821181247.3Responsible Ob senior sql server developer: IG% IG% 100.1375 (B) [...] test results are final unless otherwise noted. [facility] Ordered by Maya Barron [...] results are final unless otherwise noted. LAC [facility] Ordered by Maya Barron MD on 12/28/2020 Collected: 12/28/2020 Reported: 12/28/2020 21:08 Lactic w Rfx (if elevated) 1.5 MilliMolesPerLiter_[Substance_Concentration_Units] (0.5-2.0) N (Normal) Note: Responsible Observer: Lactic Acid Lactic Acid 400.2831 (G) Reviewed by Maya Barron MD on 01/03; All test results are final unless otherwise noted. Blood Culture (Incl Anaerobic)-1 [facility] Ordered by Maya Barron MD on 12/28/2020 Collected: 12/28/2020 Reported: 01/02/2021 20:38 Bacteria Bld Cult See Note None Note: NG5DNo growth.K6RN2KYA GROWTH AFTE R 5 DAYS Reviewed by Maya Barron MD on 01/03; All test results are final unless otherwise noted. Blood Culture (Incl Anaerobic)-2 [facility] Ordered by Maya Barron MD on 12/28/2020 Collected: 12/28/2020 Reported: 01/02/2021 20:38 Bacteria Bld Cult See Note None Note: NG5DNo growth.L4JY5DJK GROWTH AFTE R 5 DAYS Reviewed by Maya Barron MD on 01/03; All test results are final unless otherwise noted. Reported Physicians [facility] Ordered by Maya Barron MD on 12/28/2020 Collected: 12/28/2020 Reported: 01/02/2021 20:38 Reported Physicians See Note None Note: Reported Physicians:Ordering: Renetta Recinosttending: Jasper AnnhCtricia To: Maya Barron Reviewed by Maya Barron MD on 01/03; All test results are final unless otherwise noted. TROPONIN T [facility] Ordered by Maya Barron MD on 12/28/2020 Collected: 12/28/2020 Reported: 12/28/2020 04:05 TROPONIN T <0.01 NG/ML (0.00 - 0.10) None Note: TROPONIN T0.1 ng/ml Recommended as the clinical threshold value forTroponin T.Responsible Observer: (MLE) Reviewed by Maya Barron MD on 12/29; All test results are final unless otherwise noted. Reported Physicians [facility] Ordered by Maya Barron MD on 12/28/2020 Collected: 12/28/2020 Reported: 12/28/2020 04:05 Reported Physicians See Note None Note: Reported Physicians:Ordering: MARCELINO IN, RICCARDOAttending: ARIA MEJIACARConsulting: Rubén BARRON To: JESSEE MEJIACopyifan To: JESSEE MEJIA Reviewed by Maya Barron MD on 12/29; All test results are final unless otherwise noted. COMPREHENSIVE METABOLIC PANEL [facility] Ordered by Maya Barron [...] are final unless otherwise noted. Reported Physicians [facility] Ordered by Maya Barron MD on 12/28/2020 Collected: 12/28/2020 Reported: 12/28/2020 04:05 Reported Physicians See Note None Note: Reported Physicians:Ordering: TURR IN, RICCARDOAttending: TURRIN, RICCARDOConsulting: Rubén BARRON To: TURRIN, RICCARDOCopy To: TURRIN, JESSEE Reviewed by Maya Barron MD on 12/29; All test results are final unless otherwise noted. LIPASE SERUM [facility] Ordered by Maya Barron MD on 12/28/2020 Collected: 12/28/2020 Reported: 12/28/2020 04:05 LIPASE 33 U/L (13 - 60) None Note: Responsible Observer: (MLE) Reviewed by Maya Barron MD on 12/29; All test results are final unless otherwise noted. Reported Physicians [facility] Ordered by Maya Barron MD on 12/28/2020 Collected: 12/28/2020 Reported: 12/28/2020 04:06 Reported Physicians See Note None Note: Reported Physicians:Ordering: TURR IN, RICCARDOAttending: TURRIN, RICCARDOConsulting: Rubén BARRON To: TURRIN, RICCARDOCopy To: TURRIN, JESSEE Reviewed by Maya Barron MD on 12/29; All test results are final unless otherwise noted. PT/PTT [facility] Ordered by Maya Barron MD [...] Thrombosis, Pulmonary Embolus, Tissue heart valves, Acute ID Atrial Fibrillation, Valvular heart disease and recurrent Systemic Embolism. - International Normalized Ratio (INR): 2.5 - 3.5 for Mechanical Prosthetic valve.Responsible Observer: (LBS) Reviewed by Maya Barron MD on 12/29; All test results are final unless otherwise noted. Reported Physicians [facility] Ordered by Maya Barron MD on 12/28/2020 Collected: 12/28/2020 Reported: 12/28/2020 03:46 Reported Physicians See Note None Note: Reported Physicians:Ordering: TURR IN, RICCARDOAttending: HOLLYRIN, RICCARDOConsulting: Rubén BARRON To: TURRIN, RICCARDOCopy To: HOLLYRIN JESSEE Reviewed by Maya Barron MD on 12/29; All test results are final unless otherwise noted. CBC W/AUTOMATED DIFF [facility] Ordered by Maya Barron MD [...] are final unless otherwise noted. Reported Physicians [facility] Ordered by Maya Barron MD on 12/28/2020 Collected: 12/28/2020 Reported: 12/28/2020 03:34 Reported Physicians See Note None Note: Reported Physicians:Ordering: TURR IN, RICCARDOAttending: TURRIN, RICCARDOConsulting: Rubén BARRON To: HOLLYRIN, RICCARDOCopy To: HOLLYRIN, JESSEE Reviewed by Maya Barron MD on 12/29; All test results are final unless otherwise noted. D-DIMER [facility] Ordered by Maya Barron MD on 12/28/2020 Collected: 12/28/2020 Reported: 12/28/2020 03:46 D-DIMER QUANT 0.36 ug/mL (0.27 - 0.50) None Note: Responsible Observer: (LBS) Reviewed by Maya Barron MD on 12/29; All test results are final unless otherwise noted. Reported Physicians [facility] Ordered by Maya Barron MD on 12/28/2020 Collected: 12/28/2020 Reported: 12/28/2020 03:46 Reported Physicians See Note None Note: Reported Physicians:Ordering: TURR IN, RICCARDOAttending: ROBERTO, RICCARDOConsulting: Rubén BARRON To: TURRIN, RICCARDOCopy To: HOLLYRIN, JESSEE Reviewed by Maya Barron MD on 12/29; All test results are final unless otherwise noted. Cepheid SARS/FLU/RSV RT-PCR [facility] Ordered by Maya Barron MD on [...] FDA under an EUA for use byauthorized [id number]-ruv CoV RNA Resp Ql ТАТЬЯНА+ikmfkNCNBCWNLLHV-RKX-6 NOT [id number]-TFI-3 NOT [id number] RNA Resp Ql ТАТЬЯНА+probeLNNFLUAInfluenza A Not Det [id number] A Not Renwopbu33593-9CZKLK RNA Resp Ql ТАТЬЯНА+probeLNNINBInfluenza B Not [id number] B Not Vfyipzib40789- 2RSV RNA Resp Ql ТАТЬЯНА+probeLNNRSVRSV Not [id number] Not Detected Reviewed by Maya Barron MD on 12/25; All test results are final unless otherwise noted. Reported Physicians [facility] Ordered by Maya Barron MD on 12/23/2020 Collected: 12/23/2020 Reported: 12/23/2020 13:41 Reported Physicians See Note None Note: Reported Physicians:Ordering: Aj Ferreriaending: Jos Rivas To: Maya Barron Reviewed by Maya Barron MD on 12/25; All test results are final unless otherwise noted. UA W/ CULTURE IF ABNORMAL [facility] Ordered by Maya Barron MD on 12/23/2020 Collected: 12/23/2020 Reported: 12/23/2020 08:51 Urobilinogen Ur Ql See Note (0.2-1 EU/dl) None Note: 1 EU/dl1 EU/[id number] EU/dlRe sponsible Observer: UROBILINOGEN UROBILINOGEN 300.4500 (C) RBC # Ur Strip NEGATIVE (NEGATIVE) None Note: Responsible Observer: BLOOD BLOOD 300.4652 (C) Prot Ur Ql Strip See Note (NEGATIVE) None Note: [id number] ble Observer: PROTEIN PROTEIN 300.3750 (C) Ketones Ur Ql Strip See Note (NEGATIVE) None Note: [id number] EResponsible Observer: KETONE KETONE 300.3900 (C) Bilirub Ur Ql Strip.auto See Note (NEGATIVE) None Note: [id number] EResponsible Observer: BILIRUBIN BILIRUBIN 300.4550 (C) Glucose Ur Strip.auto-mCnc NEGATIVE (NEGATIVE) None Note: Responsible Observer: GLUCOSE GLUC OSE 300.3850 (C) Appearance Ur See Note (CLEAR) A (Abnormal) Note: TURBIDTURBIDLTURBIDResponsible Obs erver: APPEARANCE APPEARANCE 300.3400 (A) Color Ur See Note None Note: YELLOWYELLOWLYELLOWResponsible Obs erver: COLOR COLOR 300.3330 (A) Leukocyte esterase Ur Ql Strip See Note (NEGATIVE) None Note: [id number]@DO MICR O!!!!A Culture has been added to this specimen per established criteriaResponsible Observer: LEUKOCYTES LEUKOCYTES 300.3576 (C) Nitrite Ur Ql Strip See Note (NEGATIVE) None Note: [id number] EResponsible Observer: NITRITE NITRITE 300.3652 (B) pH [...] are final unless otherwise noted. Urine culture [facility] Ordered by Maya Barron MD on [...] are final unless otherwise noted. Reported Physicians [facility] Ordered by Maya Barron MD on 12/23/2020 Collected: 12/23/2020 Reported: 12/24/2020 10:07 Reported Physicians See Note None Note: Reported Physicians:Ordering: Cristino FerreiraAttending: Cristino RivasCopyifan To: Maya Barron Reviewed by Maya Barron MD on 12/25; All test results are final unless otherwise noted. ADD ON MICROSCOPIC [facility] Ordered by Maya Barron MD on 12/23/2020 Collected: 12/23/2020 Reported: 12/23/2020 08:51 ADD ON MICROSCOPIC See Note (0-5) None Note: NOTES OTHER/NOT INTERPRETED Bacteria UrnS Ql Micro MODERATE AMOUNT Bacteria UrnS Ql Micro MODERATE AMOUNT Bacteria UrnS Ql Micro L Bacteria UrnS Ql Micro Bacteria UrnS Ql Micro Bacteria UrnS Ql Micro Bacteria UrnS Ql Micro [id number] Bacteria UrnS Ql Micro Bacteria UrnS Ql [...] are final unless otherwise noted. Reported Physicians [facility] Ordered by Maya Barron MD on 12/23/2020 Collected: 12/23/2020 Reported: 12/23/2020 08:52 Reported Physicians See Note None Note: Reported Physicians:Ordering: Cristino FerreiraAttending: Cristino RivasCopyifan To: Maya Barron Reviewed by Maya Barron MD on 12/25; All test results are final unless otherwise noted. TROPONIN [facility] Ordered by Maya Barron MD on 12/23/2020 Collected: 12/23/2020 Reported: 12/23/2020 09:39 Troponin I SerPl-mCnc Less Than 0.015 (0.00-0.09) N (Normal) Note: Less than 0.09 NG/ML Negative 0.10 - 0.77 NG/ML High Risk0.78 NG/ML or Greater PositiveThe WHO defined the cutoff (definition for diagnosis of ID)for this method as 0.78 ng/ml.Responsible Observer: Troponin I Troponin I 600.1101 (G) NOTES See Note None Note: ADD-ON Reviewed by Maya Barron MD on 12/25; All test results are final unless otherwise noted. Reported Physicians [facility] Ordered by Maya Barron MD on 12/23/2020 Collected: 12/23/2020 Reported: 12/23/2020 09:39 Reported Physicians See Note None Note: Reported Physicians:Ordering: Aj Ferreiraending: Jos Rivas To: Maya Barron Reviewed by Maya Barron MD on 12/25; All test results are final unless otherwise noted. MAGNESIUM [facility] Ordered by Maya Barron MD on 12/23/2020 Collected: 12/23/2020 Reported: 12/23/2020 09:11 Magnesium SerPl-mCnc 2.1 MilliGramsPerDeciLiter_[Mass_Concentration_Units] (1.3-2.7) N (Normal) Note: Responsible Observer: Magnesium Ma gnesium 400.3300 (G) NOTES See Note None Note: ADD-ON Reviewed by Maya Barron MD on 12/25; All test results are final unless otherwise noted. Reported Physicians [facility] Ordered by Maya Barron MD on 12/23/2020 Collected: 12/23/2020 Reported: 12/23/2020 09:11 Reported Physicians See Note None Note: Reported Physicians:Ordering: Aj Ferreiraending: Jos Rivas To: Maya Barron Reviewed by Maya Barron MD on 12/25; All test results are final unless otherwise noted. D-DIMER [facility] Ordered by Maya Barron MD on [...] are final unless otherwise noted. Reported Physicians [facility] Ordered by Maya Barron MD on 12/23/2020 Collected: 12/23/2020 Reported: 12/23/2020 09:39 Reported Physicians See Note None Note: Reported Physicians:Ordering: Aj Ferreiraending: Jos Rivas To: Maya Barron Reviewed by Maya aBrron MD on 12/25; All test results are final unless otherwise noted. CBC W AUTO DIFF [facility] Ordered by Maya Barron MD on [...] Auto See Note (0-2) N (Normal) Note: 0.60.6R09581002337.6Responsible Ob senior sql server developer: IG% IG% 100.1375 (B) [...] test results are final unless otherwise noted. [facility] Ordered by Maya Barron [...] are final unless otherwise noted. Reported Physicians [facility] Ordered by Maya Barron MD on 12/23/2020 Collected: 12/23/2020 Reported: 12/23/2020 08:29 Reported Physicians See Note None Note: Reported Physicians:Ordering: Cristino FerreiraAttending: Jos Rivas To: Maya Barron Reviewed by Maya Barron MD on 12/25; All test results are final unless otherwise noted. TSH HIGHLY SENSITIVE [facility] Ordered by Maya Barron MD on 12/16/2020 Collected: 12/16/2020 Reported: 12/16/2020 17:28 TSH 1.41 uIU/mL (0.47 - 5.01) None Note: Responsible Observer: (DW) Reviewed by Maya Barron MD on 12/18; All test results are final unless otherwise noted. Reported Physicians [facility] Ordered by Maya Barron MD on 12/16/2020 Collected: 12/16/2020 Reported: 12/16/2020 17:28 Reported Physicians See Note None Note: Reported Physicians:Ordering: VENUS ALONSOAttending: ALLYN PAPPASConsulting: Rubén BARRON To: Miguel Gonsalez To: ALLYN PAPPAS Reviewed by Maya Barron MD on 12/18; All test results are final unless otherwise noted. LIPASE SERUM [facility] Ordered by Maya Barron MD on 12/16/2020 Collected: 12/16/2020 Reported: 12/16/2020 16:29 LIPASE 27 U/L (13 - 60) None Note: Responsible Observer: (ABIOLA) Reviewed by Maya Barron MD on 12/18; All test results are final unless otherwise noted. Reported Physicians [facility] Ordered by Maya Barron MD on 12/16/2020 Collected: 12/16/2020 Reported: 12/16/2020 16:29 Reported Physicians See Note None Note: Reported Physicians:Ordering: Sunshine ALONSOending: ALLYN PAPPASConopaling: Rubén BARRON To: Miguel Gonsalez To: ALLYN PAPPAS Reviewed by Maya Barron MD on 12/18; All test results are final unless otherwise noted. TROPONIN T [facility] Ordered by Maya Barron MD on 12/16/2020 Collected: 12/16/2020 Reported: 12/16/2020 16:30 TROPONIN T <0.01 NG/ML (0.00 - 0.10) None Note: TROPONIN T0.1 ng/ml Recommended as the clinical threshold value forTroponin T.Responsible Observer: (ABIOLA) Reviewed by Maya Barron MD on 12/18; All test results are final unless otherwise noted. Reported Physicians [facility] Ordered by Maya Barron MD on 12/16/2020 Collected: 12/16/2020 Reported: 12/16/2020 16:30 Reported Physicians See Note None Note: Reported Physicians:Ordering: VENUS ALONSOAttending: ALLYN PAPPASConelissa: Rubén BARRON To: Miguel Gonsalez To: ALLYN PAPPAS Reviewed by Maya Barron MD on 12/18; All test results are final unless otherwise noted. PT/PTT [facility] Ordered by Maya Barron MD [...] Thrombosis, Pulmonary Embolus, Tissue heart valves, Acute ID Atrial Fibrillation, Valvular heart disease and recurrent Systemic Embolism. - International Normalized Ratio (INR): 2.5 - 3.5 for Mechanical Prosthetic valve.Responsible Observer: (ABIOLA) Reviewed by Maya Barron MD on 12/18; All test results are final unless otherwise noted. Reported Physicians [facility] Ordered by Maya Barron MD on 12/16/2020 Collected: 12/16/2020 Reported: 12/16/2020 16:30 Reported Physicians See Note None Note: Reported Physicians:Ordering: Sunshine ALONSOending: ALLYN PAPPASConsulting: Rubén BARRON To: Miguel Gonsalez To: ALLYN PAPPAS Reviewed by Maya Barron MD on 12/18; All test results are final unless otherwise noted. CBC W/AUTOMATED DIFF [facility] Ordered by Maya Barron MD [...] are final unless otherwise noted. Reported Physicians [facility] Ordered by Myaa Barron MD on 12/16/2020 Collected: 12/16/2020 Reported: 12/16/2020 16:00 Reported Physicians See Note None Note: Reported Physicians:Ordering: Sunshine ALONSOending: ALLYN PAPPASConsulting: Rubén BARRON To: Miguel Gonsalez To: ALLYN PAPPAS Reviewed by Maya Barron MD on 12/18; All test results are final unless otherwise noted. COMPREHENSIVE METABOLIC PANEL [facility] Ordered by Maya Barron [...] are final unless otherwise noted. Reported Physicians [facility] Ordered by Maya Barron MD on 12/16/2020 Collected: 12/16/2020 Reported: 12/16/2020 16:30 Reported Physicians See Note None Note: Reported Physicians:Ordering: Sunshine ALONSOending: ALLYN PAPPASConsulting: Rubén BARRON To: Miguel Gonsalez To: ALLYN PAPPAS Reviewed by Maya Barron MD on 12/18; All test results are final unless otherwise noted. CBC W AUTO DIFF [facility] Ordered by Maya Barron MD on [...] Auto See Note (0-2) N (Normal) Note: [id number] Ob senior sql server developer: IG% IG% 100.1375 (B) [...] results are final unless otherwise noted. PT/PTT [facility] Ordered by Maya Barron MD on [...] results are final unless otherwise noted. CMP [facility] Ordered by Maya Barron MD on [...] are final unless otherwise noted. Reported Physicians [facility] Ordered by Maya Barron MD on 12/13/2020 Collected: 12/13/2020 Reported: 12/13/2020 19:02 Reported Physicians See Note None Note: Reported Physicians:Ordering: Edgar Omerttending: Kevin Orozco To: Maya Barron Reviewed by Maya Barron MD on 12/15; All test results are final unless otherwise noted. TSH [facility] Ordered by Maya Barron MD on 12/13/2020 Collected: 12/13/2020 Reported: 12/13/2020 19:02 TSH SerPl DL<=0.005 mIU/L-aCnc 1.02 MicroInternationalUnitsPerMilliLiter_[Arbitrary_Con (0.35-5. 50) N (Normal) Note: Responsible Observer: TSH TSH 600 .7055 (D) Reviewed by Maya Barron MD on 12/15; All test results are final unless otherwise noted. Reported Physicians [facility] Ordered by Maya Barron MD on 12/13/2020 Collected: 12/13/2020 Reported: 12/13/2020 19:02 Reported Physicians See Note None Note: Reported Physicians:Ordering: Edgar Omerttending: Pir ErnestoetCopyifan To: Maya Barron Reviewed by Maya Barron MD on 12/15; All test results are final unless otherwise noted. TROPONIN [facility] Ordered by Maya Barron MD on 12/13/2020 Collected: 12/13/2020 Reported: 12/13/2020 19:02 Troponin I SerPl-mCnc Less Than 0.015 (0.00-0.09) N (Normal) Note: Less than 0.09 NG/ML Negative 0.10 - 0.77 NG/ML High Risk0.78 NG/ML or Greater PositiveThe WHO defined the cutoff (definition for diagnosis of ID)for this method as 0.78 ng/ml.Responsible Observer: Troponin I Troponin I 600.1101 (G) Reviewed by Maya Barron MD on 12/15; All test results are final unless otherwise noted. Reported Physicians [facility] Ordered by Maya Barron MD on 12/13/2020 Collected: 12/13/2020 Reported: 12/13/2020 19:02 Reported Physicians See Note None Note: Reported Physicians:Ordering: Conchis Omerending: Kevin Orozco To: Maya Barron Reviewed by Maya Barron MD on 12/15; All test results are final unless otherwise noted. UA W/ CULTURE IF ABNORMAL [facility] Ordered by Maya Barron MD on 12/13/2020 Collected: 12/13/2020 Reported: 12/13/2020 18:32 Urobilinogen Ur Ql See Note (0.2-1 EU/dl) None Note: 0.2 EU/dl0.2 EU/[id number] E U/dlResponsible Observer: UROBILINOGEN UROBILINOGEN 300.4500 (C) RBC # Ur Strip NEGATIVE (NEGATIVE) None Note: Responsible Observer: BLOOD BLOOD 300.4652 (C) Prot Ur Ql Strip See Note (NEGATIVE) None Note: [id number] EResponsible Observer: PROTEIN PROTEIN 300.3750 (C) Ketones Ur Ql Strip See Note (NEGATIVE) None Note: [id number] EResponsible Observer: KETONE KETONE 300.3900 (C) Bilirub Ur Ql Strip.auto See Note (NEGATIVE) None Note: [id number] EResponsible Observer: BILIRUBIN BILIRUBIN 300.4550 (C) Glucose Ur Strip.auto-mCnc NEGATIVE (NEGATIVE) None Note: Responsible Observer: GLUCOSE GLUC OSE 300.3850 (C) Appearance Ur See Note (CLEAR) None Note: CLEARCLEARLCLEARResponsible Observ er: APPEARANCE APPEARANCE 300.3400 (A) Color Ur See Note None Note: YELLOWYELLOWLYELLOWResponsible Obs erver: COLOR COLOR 300.3330 (A) Leukocyte esterase Ur Ql Strip See Note (NEGATIVE) None Note: [id number]@DO MICR O!!!!A Culture has been added to this specimen per established criteriaResponsible Observer: LEUKOCYTES LEUKOCYTES 300.3576 (C) Nitrite Ur Ql Strip See Note (NEGATIVE) None Note: [id number] EResponsible Observer: NITRITE NITRITE 300.3652 (B) pH [...] are final unless otherwise noted. Urine culture [facility] Ordered by Maya Barron MD on 12/13/2020 Collected: 12/13/2020 Reported: 12/14/2020 13:24 Bacteria Ur Cult See Note None Note: NGNo growth.L1NG NOTES See Note None Note: @12/13/20 1832: Urine culture adde d. RFLXG = CULT.ADD. Reviewed by Maya Barron MD on 12/15; All test results are final unless otherwise noted. Reported Physicians [facility] Ordered by Maya Barron MD on 12/13/2020 Collected: 12/13/2020 Reported: 12/14/2020 13:24 Reported Physicians See Note None Note: Reported Physicians:Ordering: Conchis Omerending: Kevin Orozco To: Maya Barron Reviewed by Maya Barron MD on 12/15; All test results are final unless otherwise noted. ADD ON MICROSCOPIC [facility] Ordered by Maya Barron MD on 12/13/2020 Collected: 12/13/2020 Reported: 12/13/2020 18:32 ADD ON MICROSCOPIC See Note (0-5) None Note: NOTES OTHER/NOT INTERPRETED Bacteria UrnS Ql Micro MODERATE AMOUNT Bacteria UrnS Ql Micro MODERATE AMOUNT Bacteria UrnS Ql Micro L Bacteria UrnS Ql Micro Bacteria UrnS Ql Micro Bacteria UrnS Ql Micro Bacteria UrnS Ql Micro [id number] Bacteria UrnS Ql Micro Bacteria UrnS Ql [...] are final unless otherwise noted. Reported Physicians [facility] Ordered by Maya Barron MD on 12/13/2020 Collected: 12/13/2020 Reported: 12/13/2020 18:33 Reported Physicians See Note None Note: Reported Physicians:Ordering: Conchis Omerending: Kevin Orozco To: Maya Barron Reviewed by Maya Barron MD on 12/15; All test results are final unless otherwise noted. TROPONIN T [facility] Ordered by Maya Barron MD on 12/09/2020 Collected: 12/09/2020 Reported: 12/09/2020 01:32 TROPONIN T <0.01 NG/ML (0.00 - 0.10) None Note: TROPONIN T0.1 ng/ml Recommended as the clinical threshold value forTroponin T.Responsible Observer: (AB) Reviewed by Maya Barron MD on 12/12; All test results are final unless otherwise noted. Reported Physicians [facility] Ordered by Maya Barron MD on 12/09/2020 Collected: 12/09/2020 Reported: 12/09/2020 01:32 Reported Physicians See Note None Note: Reported Physicians:Ordering: MARQUISE TOMLINSON CAttending: MARQUISE SOTOConopaling: Rubén BARRON To: Clare SOTO To: MARQUISE SOTO Reviewed by Maya Barron MD on 12/12; All test results are final unless otherwise noted. TROPONIN T [facility] Ordered by Maya Barron MD on 12/08/2020 Collected: 12/08/2020 Reported: 12/08/2020 22:36 TROPONIN T <0.01 NG/ML (0.00 - 0.10) None Note: TROPONIN T0.1 ng/ml Recommended as the clinical threshold value Nidia WagnerResponsible Observer: (AB) Reviewed by Maya Barron MD on 12/12; All test results are final unless otherwise noted. Reported Physicians [facility] Ordered by Maya Barron MD on 12/08/2020 Collected: 12/08/2020 Reported: 12/08/2020 22:36 Reported Physicians See Note None Note: Reported Physicians:Ordering: MARQUISE TOMLINSON CAttending: MARQUISE SOTOConopaling: Rubén BARRON To: Clare SOTO To: MARQUISE SOTO Reviewed by Maya Barron MD on 12/12; All test results are final unless otherwise noted. LIPASE SERUM [facility] Ordered by Maya Barron MD on 12/08/2020 Collected: 12/08/2020 Reported: 12/08/2020 22:32 LIPASE 33 U/L (13 - 60) None Note: Responsible Observer: (AB) Reviewed by Maya Barron MD on 12/12; All test results are final unless otherwise noted. Reported Physicians [facility] Ordered by Maya Barron MD on 12/08/2020 Collected: 12/08/2020 Reported: 12/08/2020 22:32 Reported Physicians See Note None Note: Reported Physicians:Ordering: MARQUISE TOMLINSON CAttending: MARQUISE SOTOConsulting: MAYA BARRONCopyifan To: MARQUISE SOTOCopyifan To: MARQUISE SOTO Reviewed by Maya Barron MD on 12/12; All test results are final unless otherwise noted. COMPREHENSIVE METABOLIC PANEL [facility] Ordered by Maya Barron [...] are final unless otherwise noted. Reported Physicians [facility] Ordered by Maya Barron MD on 12/08/2020 Collected: 12/08/2020 Reported: 12/08/2020 22:36 Reported Physicians See Note None Note: Reported Physicians:Ordering: MARQUISE TOMLINSON CAttending: MARQUISE SOTOConsulting: Rubén BARRON To: MARQUISE SOTOCopyifan To: MARQUISE SOTO Reviewed by Maya Barron MD on 12/12; All test results are final unless otherwise noted. TROPONIN [facility] Ordered by Maya Barron MD on 12/01/2020 Collected: 12/01/2020 Reported: 12/01/2020 18:18 Troponin I SerPl-mCnc Less Than 0.015 (0.00-0.09) N (Normal) Note: Less than 0.09 NG/ML Negative 0.10 - 0.77 NG/ML High Risk0.78 NG/ML or Greater PositiveThe WHO defined the cutoff (definition for diagnosis of ID)for this method as 0.78 ng/ml.Responsible Observer: Troponin I Troponin I 600.1101 (G) Reviewed by Maya Barron MD on 12/04; All test results are final unless otherwise noted. Reported Physicians [facility] Ordered by Maya Barron MD on 12/01/2020 Collected: 12/01/2020 Reported: 12/01/2020 18:19 Reported Physicians See Note None Note: Reported Physicians:Ordering: Sara Kaurending: Adam Pardo To: Maya Barron Reviewed by Maya Barron MD on 12/04; All test results are final unless otherwise noted. CBC W AUTO DIFF [facility] Ordered by Maya Barron MD on [...] Auto See Note (0-2) N (Normal) Note: 0.40.7I57017530944.4Responsible Ob senior sql server developer: IG% IG% 100.1375 (B) [...] test results are final unless otherwise noted. [facility] Ordered by Maya Barron [...] results are final unless otherwise noted. D-DIMER [facility] Ordered by Maya Barron MD on [...] are final unless otherwise noted. Reported Physicians [facility] Ordered by Maya Barron MD on 12/01/2020 Collected: 12/01/2020 Reported: 12/01/2020 18:19 Reported Physicians See Note None Note: Reported Physicians:Ordering: Choco KaurAttending: Adam Pardo To: Maya Barron Reviewed by Maya Barron MD on 12/04; All test results are final unless otherwise noted. Cepheid CT/NG RT-PCR [facility] Ordered by Maya Barron MD on [...] may result in failure to detect the targetorganisms.47755-2U trach DNA Vag Ql ТАТЬЯНА+probeLNCHLAMNC. trachomatis NOT [id number]. trachomatis NOT [id number] gonorrhoea rRNA Vag Ql ТАТЬЯНА+probeLNNEIGNN.gonorrhoeae NOT [id number].gonorrhoeae NOT DETECTED Reviewed by Maya Barron MD on 11/29; All test results are final unless otherwise noted. Reported Physicians [facility] Ordered by Maya Barron MD on 11/29/2020 Collected: 11/29/2020 Reported: 11/29/2020 07:03 Reported Physicians See Note None Note: Reported Physicians:Ordering: Estela SamuelAttending: Vianey Up To: Maya Barron Reviewed by Maya Barron MD on 11/29; All test results are final unless otherwise noted. AFFIRM [facility] Ordered by Maya Barron MD on 11/29/2020 Collected: 11/29/2020 Reported: 11/30/2020 13:21 Dionna species DNA Probe NOT DETECTED (NOT DETECTED) None Note: THIS TEST WAS PERFORMED AT:[facility] [address] [id number] ONEILLesponsible Observer: Dionna DNA Dionna species DNA Probe [id number] 913.2350 ([facility]) Gardnerella DNA Probe DETECTED (NOT DETECTED) H (High) Note: Increased levels of G. vaginalis m ay not be significantin the absence of signs and symptoms of bacterialvaginosis.Responsible Observer: Gardnerella DNA Gardnerella DNA Probe [id number] 913.2345 ([facility] [employer]) Trichomonas DNA Probe NOT DETECTED (NOT DETECTED) None Note: Responsible Observer: Trichomonas DNA Trichomonas DNA Probe [id number] 913.2340 ([facility]) Reviewed by Maya Barron MD on 12/01; All test results are final unless otherwise noted. Reported Physicians [facility] Ordered by Maya Barron MD on 11/29/2020 Collected: 11/29/2020 Reported: 11/30/2020 13:21 Reported Physicians See Note None Note: Reported Physicians:Ordering: Estela SamuelAttending: Vianey Up To: Maya Barron Reviewed by Maya Barron MD on 12/01; All test results are final unless otherwise noted. UA W/ CULTURE IF ABNORMAL [facility] Ordered by Maya Barron MD on 11/29/2020 Collected: 11/29/2020 Reported: 11/29/2020 04:49 Urobilinogen Ur Ql See Note (0.2-1 EU/dl) None Note: 0.2 EU/dl0.2 EU/[id number] E U/dlResponsible Observer: UROBILINOGEN UROBILINOGEN 300.4500 (C) RBC # Ur Strip NEGATIVE (NEGATIVE) None Note: Responsible Observer: BLOOD BLOOD 300.4652 (C) Prot Ur Ql Strip See Note (NEGATIVE) None Note: [id number] EResponsible Observer: PROTEIN PROTEIN 300.3750 (C) Ketones Ur Ql Strip See Note (NEGATIVE) None Note: [id number] EResponsible Observer: KETONE KETONE 300.3900 (C) Bilirub Ur Ql Strip.auto See Note (NEGATIVE) None Note: [id number] EResponsible Observer: BILIRUBIN BILIRUBIN 300.4550 (C) Glucose Ur Strip.auto-mCnc NEGATIVE (NEGATIVE) None Note: Responsible Observer: GLUCOSE GLUC OSE 300.3850 (C) Appearance Ur See Note (CLEAR) None Note: CLEARCLEARLCLEARResponsible Observ er: APPEARANCE APPEARANCE 300.3400 (A) Color Ur See Note None Note: YELLOWYELLOWLYELLOWResponsible Obs erver: COLOR COLOR 300.3330 (A) Leukocyte esterase Ur Ql Strip See Note (NEGATIVE) None Note: [id number]@DO MICR O!!!!A Culture has been added to this specimen per established criteriaResponsible Observer: LEUKOCYTES LEUKOCYTES 300.3576 (C) Nitrite Ur Ql Strip See Note (NEGATIVE) None Note: [id number] EResponsible Observer: NITRITE NITRITE 300.3652 (B) pH [...] are final unless otherwise noted. Urine culture [facility] Ordered by Maya Barron MD on 11/29/2020 Collected: 11/29/2020 Reported: 11/30/2020 07:23 Bacteria Ur Cult See Note None Note: NGNo growth.L1NG NOTES See Note None Note: @11/29/20 0450: Urine culture adde d. RFLXG = CULT.ADD. Reviewed by Maya Barron MD on 12/01; All test results are final unless otherwise noted. Reported Physicians [facility] Ordered by Maya Barron MD on 11/29/2020 Collected: 11/29/2020 Reported: 11/30/2020 07:23 Reported Physicians See Note None Note: Reported Physicians:Ordering: Estela SamuelAttending: Vianey Up To: Maya Barron Reviewed by Maya Barron MD on 12/01; All test results are final unless otherwise noted. ADD ON MICROSCOPIC [facility] Ordered by Maya Barron MD on [...] are final unless otherwise noted. Reported Physicians [facility] Ordered by Maya Barron MD on 11/29/2020 Collected: 11/29/2020 Reported: 11/29/2020 04:51 Reported Physicians See Note None Note: Reported Physicians:Ordering: Gideon Samuelending: Vianey Up To: Maya Barron Reviewed by Maya Barron MD on 11/29; All test results are final unless otherwise noted. TROPONIN [facility] Ordered by Maya Barron MD on 11/20/2020 Collected: 11/20/2020 Reported: 11/20/2020 20:04 Troponin I SerPl-mCnc Less Than 0.015 (0.00-0.09) N (Normal) Note: Less than 0.09 NG/ML Negative 0.10 - 0.77 NG/ML High Risk0.78 NG/ML or Greater PositiveThe WHO defined the cutoff (definition for diagnosis of ID)for this method as 0.78 ng/ml.Responsible Observer: Troponin I Troponin I 600.1101 (G) Reviewed by Maya Barron MD on 11/22; All test results are final unless otherwise noted. Reported Physicians [facility] Ordered by Maya Barron MD on 11/20/2020 Collected: 11/20/2020 Reported: 11/20/2020 20:05 Reported Physicians See Note None Note: Reported Physicians:Ordering: Les Vanegas AAttending: Fady Raza To: Maya Barron Reviewed by Maya Barron MD on 11/22; All test results are final unless otherwise noted. Cepheid SARS/FLU/RSV RT-PCR [facility] Ordered by Maya Barron MD on [...] FDA under an EUA for use byun[facility] centerhoriSpireonkvzhbiozuohv24287-0FITU-sei CoV RNA Resp Ql ТАТЬЯНА+hrdrdZOMRYFGGUBH-OIC-0 NOT [id number]-FGR-2 NOT XKZJXTMI96894-2QCAFI RNA Resp Ql ТАТЬЯНА+probeLNNFLUAInfluenza A Not Det [id number] A Not Yazmzakw35796-3YXQMT RNA Resp Ql ТАТЬЯНА+probeLNNINBInfluenza B Not GttwkgkkD5904434112Ciyzecotk B Not Hgalqxjw86333- 2RSV RNA Resp Ql ТАТЬЯНА+probeLNNRSVRSV Not [id number] Not Detected Reviewed by Maya Barron MD on 11/20; All test results are final unless otherwise noted. Reported Physicians [facility] Ordered by Maya Barron MD on 11/18/2020 Collected: 11/18/2020 Reported: 11/18/2020 23:58 Reported Physicians See Note None Note: Reported Physicians:Ordering: Aj Snowending: Jos Castellanos To: Maya Barron Reviewed by Maya Barron MD on 11/20; All test results are final unless otherwise noted. URINE DRUG SCREEN -([facility]) [facility] Ordered by Maya Barron MD on 11/17/2020 Collected: 11/17/2020 Reported: 11/17/2020 14:19 PCP Ur Ql Scn>25 ng/mL See Note (Cutoff 25) None Note: [id number] E@Reenter manual test result: NEGATIVE@by Claudia Tello at 11/17/20 1414.Responsible Observer: PCP Urine Phencyclidine (PCP) Scrn 400.5120 (A) THC Ur Ql Scn>50 ng/mL See Note (Cutoff 50) None Note: [id number] EResponsible Observer: Marijuana (THC) Ur Marijuana (THC) Screen 400.5110 (A) Benzodiaz Ur Ql Scn See Note (Cutoff 150) None Note: [id number] E@Reenter manual test result: NEGATIVE@by Claudia Tello at 11/17/20 1418.Responsible Observer: Benzodiazepines Urine Benzodiazepines Screen 400.5170 (A) Opiates Ur Ql Scn See Note (Cutoff 100) None Note: [id number] E@Reenter manual test result: NEGATIVE@by Claudia Tello at 11/17/20 1418.Responsible Observer: Opiates Urine Opiates Screen 400.5150 (A) Tricyclics Ur Ql Scn See Note (Cutoff 300) None Note: [id number] E@Reenter manual test result: NEGATIVE@by Claudia Tello at 11/17/20 1418.Responsible Observer: TCA Ur Tricyclic Antidepressants 400.5180 (A) Cocaine Ur Ql Scn See Note (Cutoff 150) None Note: [id number] E@Reenter manual test result: NEGATIVE@by Claudia Tello at 11/17/20 1417.Responsible Observer: Cocaine Urine Cocaine Screen 400.5130 (A) Propoxyph+Nor Ur Ql Scn See Note (Cutoff 300) None Note: [id number] E@Reenter manual test result: NEGATIVE@by Claudia Tello at 11/17/20 1418.Responsible Observer: Propoxyphene Urine Propoxyphene Screen 400.5220 (A) Methadone Ur Ql Scn See Note (Cutoff 200) None Note: [id number] E@Reenter manual test result: NEGATIVE@by Claudia Tello at 11/17/20 1418.Responsible Observer: Methadone Urine Methadone Screen 400.5190 (A) Methamphet Ur Ql Scn See Note (Cutoff 500) None Note: [id number] E@Reenter manual test result: NEGATIVE@by Claudia Tello at 11/17/20 1417.Responsible Observer: Methamphetamine Urine Methamphetamines Screen 400.5140 (A) oxyCODONE Ur Ql Scn See Note (Cutoff 100) None Note: [id number] E@Reenter manual test result: NEGATIVE@by Claudia Tello at 11/17/20 1418.Responsible Observer: Oxycodone Urine Oxycodone Screen 400.5210 (A) Buprenorphine Ur Ql See Note (Cutoff 10) None Note: [id number] E@Reenter manual test result: NEGATIVE@by Claudia Tello at 11/17/20 1419.Responsible Observer: Buprenorphine Urine Buprenorphine Screen 400.5230 (A) Amphetamines Ur Ql Scn>500 ng/mL See Note (Cutoff 500) None Note: [id number] E@Reenter manual test result: NEGATIVE@by Claudia Tello at 11/17/20 1418.Responsible Observer: Amphetamines Urine Amphetamines Screen 400.5160 (A) Barbiturates Ur Ql Scn>200 ng/mL See Note (Cutoff 200) None Note: [id number] E@Reenter manual test result: NEGATIVE@by Claudia Tello at 11/17/20 1418.Responsible Observer: Barbiturates Urine Barbiturates 400.5200 (A) Reviewed by Maya Barron MD on 11/20; All test results are final unless otherwise noted. IRON [facility] Ordered by Maya Barron MD on 11/17/2020 Collected: 11/17/2020 Reported: 11/17/2020 14:34 Iron SerPl-mCnc 39 (50-170) L (Low) Note: Iron values may be falsely elevate d in serum samples frompatients treated with anticoagulants (e.g., hemodialysispatients)Responsible Observer: Iron Level Iron Level 400.9002 (A) Reviewed by Maya Barron MD on 11/20; All test results are final unless otherwise noted. Reported Physicians [facility] Ordered by Maya Barron MD on 11/17/2020 Collected: 11/17/2020 Reported: 11/17/2020 14:34 Reported Physicians See Note None Note: Reported Physicians:Ordering: Maya AlvarengaAttending: Maya Barron Reviewed by Maya Barron MD on 11/20; All test results are final unless otherwise noted. CBC W AUTO DIFF [facility] Ordered by Maya Barron MD on [...] Auto See Note (0-2) N (Normal) Note: [id number] Ob senior sql server developer: IG% IG% 100.1375 (B) [...] results are final unless otherwise noted. HA1C [facility] Ordered by Maya Barron MD on [...] blood glucose control.* High risk of developing termite exterminator helper complications such asretinopathy, nephropathy, neuropathy, cardiopathy, etc. [...] results are final unless otherwise noted. CMP [facility] Ordered by Maya Barron MD on [...] final unless otherwise noted. Vitamin D 25-OH [facility] Ordered by Maya Barron MD on [...] VIT D, (D2,D3), LC/MS/MS is recommended: ordercode 21341 (patients >2yrs).See Note 1Note 1For additional information, please refer [email or web address].Victiv/faq/NPN459(This link is being provided for informational/educational purposes only.)THIS TEST WAS PERFORMED AT:[facility] [address]OSEAS NABILCLAUDY OSHEAesponsible Observer: Vitamin D 25-OH Vitamin D 25-Hydroxy [id number] 062.0955 ([employer]) Reviewed by Maya Barron MD on 11/20; All test results are final unless otherwise noted. Reported Physicians [facility] Ordered by Maya Barron MD on 11/17/2020 Collected: 11/17/2020 Reported: 11/18/2020 08:17 Reported Physicians See Note None Note: Reported Physicians:Ordering: Cara Alvarengaending: Maya Barron Reviewed by Maya Barron MD on 11/20; All test results are final unless otherwise noted. FREE T4 (LAB) [facility] Ordered by Maya Barron MD on 11/17/2020 Collected: 11/17/2020 Reported: 11/17/2020 14:34 T4 Free SerPl-mCnc 0.78 NanoGramsPerDeciLiter_[Mass_Concentration_Units] (0.89-1.76) L (Low) Note: Responsible Observer: FREE T4 Free Thyroxine 600.7005 (D) Reviewed by Maya Barron MD on 11/20; All test results are final unless otherwise noted. Reported Physicians [facility] Ordered by Maya Barron MD on 11/17/2020 Collected: 11/17/2020 Reported: 11/17/2020 14:34 Reported Physicians See Note None Note: Reported Physicians:Ordering: Cara Alvarengaending: Maya Barron Reviewed by Maya Barron MD on 11/20; All test results are final unless otherwise noted. TSH [facility] Ordered by Maya Barron MD on 11/17/2020 Collected: 11/17/2020 Reported: 11/17/2020 14:34 TSH SerPl DL<=0.005 mIU/L-aCnc 1.38 MicroInternationalUnitsPerMilliLiter_[Arbitrary_Con (0.35-5. 50) N (Normal) Note: Responsible Observer: TSH TSH 600 .7055 (D) Reviewed by Maya Barron MD on 11/20; All test results are final unless otherwise noted. Reported Physicians [facility] Ordered by Maya Barron MD on 11/17/2020 Collected: 11/17/2020 Reported: 11/17/2020 14:34 Reported Physicians See Note None Note: Reported Physicians:Ordering: Maya AlvarengaAttending: Maya Barron Reviewed by Maya Barron MD on 11/20; All test results are final unless otherwise noted. TROPONIN [facility] Ordered by Maya Barron MD on 10/23/2020 Collected: 10/23/2020 Reported: 10/23/2020 01:03 Troponin I SerPl-mCnc Less Than 0.015 (0.00-0.09) N (Normal) Note: Less than 0.09 NG/ML Negative 0.10 - 0.77 NG/ML High Risk0.78 NG/ML or Greater PositiveThe WHO defined the cutoff (definition for diagnosis of ID)for this method as 0.78 ng/ml.Responsible Observer: Troponin I Troponin I 600.1101 (G) Reviewed by Maya Barron MD on 10/23; All test results are final unless otherwise noted. Reported Physicians [facility] Ordered by Maya Barron MD on 10/23/2020 Collected: 10/23/2020 Reported: 10/23/2020 01:03 Reported Physicians See Note None Note: Reported Physicians:Ordering: Yoli NapolesAttending: Charles Silva To: Maya Barron Reviewed by Maya Barron MD on 10/23; All test results are final unless otherwise noted. BHCG Quantitative [facility] Ordered by Maya Barron MD on 10/23/2020 Collected: 10/23/2020 Reported: 10/23/2020 01:21 B-HCG SerPl-aCnc 68679 MilliInternationalUnitsPerMilliLiter_[Arbitrary_Con (0-10) H (High) Note: @Instrument will [...] are final unless otherwise noted. Reported Physicians [facility] Ordered by Maya Barron MD on 10/23/2020 Collected: 10/23/2020 Reported: 10/23/2020 01:21 Reported Physicians See Note None Note: Reported Physicians:Ordering: Yoli NapolesAttending: Yoli SilvaCopyifan To: Maya Barron Reviewed by Maya Barron MD on 10/23; All test results are final unless otherwise noted. CBC W AUTO DIFF [facility] Ordered by Maya Barron MD on [...] Auto See Note (0-2) N (Normal) Note: [id number] Ob senior sql server developer: IG% IG% 100.1375 (B) [...] test results are final unless otherwise noted. [facility] Ordered by Maya Barron [...] results are final unless otherwise noted. D-DIMER [facility] Ordered by Maya Barron MD on [...] are final unless otherwise noted. Reported Physicians [facility] Ordered by Maya Barron MD on 10/23/2020 Collected: 10/23/2020 Reported: 10/23/2020 01:22 Reported Physicians See Note None Note: Reported Physicians:Ordering: Yoli NapolesAttending: Charles Silva To: Maya Barron Reviewed by Maya Barron MD on 10/23; All test results are final unless otherwise noted. FREE T4 (LAB) [facility] Ordered by Maya Barron MD on 10/21/2020 Collected: 10/21/2020 Reported: 10/21/2020 15:17 T4 Free SerPl-mCnc 0.97 NanoGramsPerDeciLiter_[Mass_Concentration_Units] (0.89-1.76) N (Normal) Note: Responsible Observer: FREE T4 Free Thyroxine 600.7005 (D) Reviewed by Maya Barron MD on 10/23; All test results are final unless otherwise noted. Reported Physicians [facility] Ordered by Maya Barron MD on 10/21/2020 Collected: 10/21/2020 Reported: 10/21/2020 15:17 Reported Physicians See Note None Note: Reported Physicians:Ordering: Talisha is, TimothyAttending: Edvin TimothyCopyifan To: Maya Barron Reviewed by Maya Barron MD on 10/23; All test results are final unless otherwise noted. TSH [facility] Ordered by Maya Barron MD on 10/21/2020 Collected: 10/21/2020 Reported: 10/21/2020 15:17 TSH SerPl DL<=0.005 mIU/L-aCnc 1.40 MicroInternationalUnitsPerMilliLiter_[Arbitrary_Con (0.35-5. 50) N (Normal) Note: Responsible Observer: TSH TSH 600 .7055 (D) Reviewed by Maya Barron MD on 10/23; All test results are final unless otherwise noted. Reported Physicians [facility] Ordered by Maya Barron MD on 10/21/2020 Collected: 10/21/2020 Reported: 10/21/2020 15:17 Reported Physicians See Note None Note: Reported Physicians:Ordering: Math is, TimothyAttending: Edvin TimothyCopyifan To: Maya Barron Reviewed by Maya Barron MD on 10/23; All test results are final unless otherwise noted. UA W/ CULTURE IF ABNORMAL [facility] Ordered by Maya Barron MD on 10/19/2020 Collected: 10/19/2020 Reported: 10/19/2020 16:31 Urobilinogen Ur Ql See Note (0.2-1 EU/dl) None Note: 0.2 EU/dl0.2 EU/[id number] E U/dlResponsible Observer: UROBILINOGEN UROBILINOGEN 300.4500 (C) RBC # Ur Strip NEGATIVE (NEGATIVE) None Note: Responsible Observer: BLOOD BLOOD 300.4652 (C) Prot Ur Ql Strip See Note (NEGATIVE) None Note: [id number] EResponsible Observer: PROTEIN PROTEIN 300.3750 (C) Ketones Ur Ql Strip See Note (NEGATIVE) None Note: [id number] EResponsible Observer: KETONE KETONE 300.3900 (C) Bilirub Ur Ql Strip.auto See Note (NEGATIVE) None Note: [id number] EResponsible Observer: BILIRUBIN BILIRUBIN 300.4550 (C) Glucose Ur Strip.auto-mCnc 100 mg/dl (NEGATIVE) None Note: Responsible Observer: GLUCOSE GLUC OSE 300.3850 (C) Appearance Ur See Note (CLEAR) None Note: CLEARCLEARLCLEARResponsible Observ er: APPEARANCE APPEARANCE 300.3400 (A) Color Ur See Note None Note: YELLOWYELLOWLYELLOWResponsible Obs erver: COLOR COLOR 300.3330 (A) Leukocyte esterase Ur Ql Strip See Note (NEGATIVE) None Note: [id number] EResponsible Observer: LEUKOCYTES LEUKOCYTES 300.3576 (C) Nitrite Ur Ql Strip See Note (NEGATIVE) None Note: [id number] EResponsible Observer: NITRITE NITRITE 300.3652 (B) pH [...] are final unless otherwise noted. Reported Physicians [facility] Ordered by Maya Barron MD on 10/19/2020 Collected: 10/19/2020 Reported: 10/19/2020 16:31 Reported Physicians See Note None Note: Reported Physicians:Ordering: Les Vanegas AAttending: Fady Raza To: Maya Barron Reviewed by Maya Barron MD on 10/20; All test results are final unless otherwise noted. URINE DRUG SCREEN -([facility]) [facility] Ordered by Maya Barron MD on 10/19/2020 Collected: 10/19/2020 Reported: 10/19/2020 16:40 PCP Ur Ql Scn>25 ng/mL See Note (Cutoff 25) None Note: [id number] E@Reenter manual test result: NEGATIVE@by Jia Lentz at 10/19/20 1639.Responsible Observer: PCP Urine Phencyclidine (PCP) Scrn 400.5120 (A) THC Ur Ql Scn>50 ng/mL See Note (Cutoff 50) None Note: [id number] EResponsible Observer: Marijuana (THC) Ur Marijuana (THC) Screen 400.5110 (A) Benzodiaz Ur Ql Scn See Note (Cutoff 150) None Note: [id number] E@Reenter manual test result: NEGATIVE@by Jia Lentz at 10/19/20 1640.Responsible Observer: Benzodiazepines Urine Benzodiazepines Screen 400.5170 (A) Opiates Ur Ql Scn See Note (Cutoff 100) None Note: [id number] E@Reenter manual test result: NEGATIVE@by Jia Lentz at 10/19/20 1640.Responsible Observer: Opiates Urine Opiates Screen 400.5150 (A) Tricyclics Ur Ql Scn See Note (Cutoff 300) None Note: [id number] E@Reenter manual test result: NEGATIVE@by Jia Lentz at 10/19/20 1640.Responsible Observer: TCA Ur Tricyclic Antidepressants 400.5180 (A) Cocaine Ur Ql Scn See Note (Cutoff 150) None Note: [id number] E@Reenter manual test result: NEGATIVE@by Jia Lentz at 10/19/20 1640.Responsible Observer: Cocaine Urine Cocaine Screen 400.5130 (A) Propoxyph+Nor Ur Ql Scn See Note (Cutoff 300) None Note: [id number] E@Reenter manual test result: NEGATIVE@by Jia Lentz at 10/19/20 1640.Responsible Observer: Propoxyphene Urine Propoxyphene Screen 400.5220 (A) Methadone Ur Ql Scn See Note (Cutoff 200) None Note: [id number] E@Reenter manual test result: NEGATIVE@by Jia Lentz at 10/19/20 1640.Responsible Observer: Methadone Urine Methadone Screen 400.5190 (A) Methamphet Ur Ql Scn See Note (Cutoff 500) None Note: [id number] E@Reenter manual test result: NEGATIVE@by Jia Lentz at 10/19/20 1640.Responsible Observer: Methamphetamine Urine Methamphetamines Screen 400.5140 (A) oxyCODONE Ur Ql Scn See Note (Cutoff 100) None Note: [id number] E@Reenter manual test result: NEGATIVE@by Jia Lentz at 10/19/20 1640.Responsible Observer: Oxycodone Urine Oxycodone Screen 400.5210 (A) Buprenorphine Ur Ql See Note (Cutoff 10) None Note: [id number] E@Reenter manual test result: NEGATIVE@by Jia Lentz at 10/19/20 1640.Responsible Observer: Buprenorphine Urine Buprenorphine Screen 400.5230 (A) Amphetamines Ur Ql Scn>500 ng/mL See Note (Cutoff 500) None Note: [id number] E@Reenter manual test result: NEGATIVE@by Jia Lentz at 10/19/20 1640.Responsible Observer: Amphetamines Urine Amphetamines Screen 400.5160 (A) Barbiturates Ur Ql Scn>200 ng/mL See Note (Cutoff 200) None Note: [id number] E@Reenter manual test result: NEGATIVE@by Jia Lentz at 10/19/20 1640.Responsible Observer: Barbiturates Urine Barbiturates 400.5200 (A) Reviewed by Maya Barron MD on 10/20; All test results are final unless otherwise noted. Reported Physicians [facility] Ordered by Maya Barron MD on 10/19/2020 Collected: 10/19/2020 Reported: 10/19/2020 16:40 Reported Physicians See Note None Note: Reported Physicians:Ordering: Les Vanegasding: Fady Raza To: Maya Barron Reviewed by Maya Barron MD on 10/20; All test results are final unless otherwise noted. [facility] Ordered by Maya Barron [...] unless otherwise noted. CBC W AUTO DIFF [facility] Ordered by Maya Barron MD on [...] Auto See Note (0-2) N (Normal) Note: [id number] Ob senior sql server developer: IG% IG% 100.1375 (B) [...] are final unless otherwise noted. Reported Physicians [facility] Ordered by Maya Barron MD on 10/19/2020 Collected: 10/19/2020 Reported: 10/19/2020 16:33 Reported Physicians See Note None Note: Reported Physicians:Ordering: Les Vanegas: Fady Raza To: Maya Barron Reviewed by Maya Barron MD on 10/20; All test results are final unless otherwise noted. CRP, C-REACTIVE PROTEIN [facility] Ordered by Maya Barron MD on 10/19/2020 Collected: 10/19/2020 Reported: 10/19/2020 16:08 CRP SerPl-mCnc 7.5 MilliGramsPerLiter_[Mass_Concentration_Units] (0.0-5.0) H (High) Note: Responsible Observer: CRP C-Reacti ve Protein 401.4355 (H) Reviewed by Maya Barron MD on 10/20; All test results are final unless otherwise noted. SED RATE [facility] Ordered by Maya Barron MD on 10/19/2020 Collected: 10/19/2020 Reported: 10/19/2020 16:32 ESR Bld Qn Westrgrn 22 (0-20) H (High) Note: @Reeer manual test result: 22@by Jia Lentz at 10/19/20 1632.Responsible Observer: SED RATE SED RATE 100.6400 (B) Reviewed by Maya Barron MD on 10/20; All test results are final unless otherwise noted. Reported Physicians [facility] Ordered by Maya Barron MD on 10/19/2020 Collected: 10/19/2020 Reported: 10/19/2020 16:33 Reported Physicians See Note None Note: Reported Physicians:Ordering: Les Vanegas: Fady Raza To: Maya Barron Reviewed by Maya Barron MD on 10/20; All test results are final unless otherwise noted. TSH w/ reflex to Free T4 [facility] Ordered by Maya Barron MD on 10/19/2020 Collected: 10/19/2020 Reported: 10/19/2020 16:08 TSH SerPl DL<=0.005 mIU/L-aCnc 1.66 MicroInternationalUnitsPerMilliLiter_[Arbitrary_Con (0.35-5. 50) N (Normal) Note: Responsible Observer: TSH TSH 600 .7060 (D) Reviewed by Maya Barron MD on 10/20; All test results are final unless otherwise noted. Reported Physicians [facility] Ordered by Maya Barron MD on 10/19/2020 Collected: 10/19/2020 Reported: 10/19/2020 16:08 Reported Physicians See Note None Note: Reported Physicians:Ordering: Les Vanegas: Fady Raza To: Maya Barron Reviewed by Maya Barron MD on 10/20; All test results are final unless otherwise noted. TROPONIN [facility] Ordered by Maya Barron MD on 10/19/2020 Collected: 10/19/2020 Reported: 10/19/2020 16:10 Troponin I SerPl-mCnc Less Than 0.015 (0.00-0.09) N (Normal) Note: Less than 0.09 NG/ML Negative 0.10 - 0.77 NG/ML High Risk0.78 NG/ML or Greater PositiveThe WHO defined the cutoff (definition for diagnosis of ID)for this method as 0.78 ng/ml.Responsible Observer: Troponin I Troponin I 600.1101 (G) Reviewed by Maya Barron MD on 10/20; All test results are final unless otherwise noted. Reported Physicians [facility] Ordered by Maya Barron MD on 10/19/2020 Collected: 10/19/2020 Reported: 10/19/2020 16:10 Reported Physicians See Note None Note: Reported Physicians:Ordering: Les Vanegas: Fady Raza To: Maya Barron Reviewed by Maya Barron MD on 10/20; All test results are final unless otherwise noted. PT/PTT [facility] Ordered by Maya Barron MD on [...] are final unless otherwise noted. Reported Physicians [facility] Ordered by Maya Barron MD on 10/08/2020 Collected: 10/08/2020 Reported: 10/08/2020 03:22 Reported Physicians See Note None Note: Reported Physicians:Ordering: Sana Recinosending: Jasper AnnhCopy To: Maya Barron Reviewed by Maya Barron MD on 10/09; All test results are final unless otherwise noted. CBC W AUTO DIFF [facility] Ordered by Maya Barron MD on [...] Auto See Note (0-2) N (Normal) Note: [id number] Ob senior sql server developer: IG% IG% 100.1375 (B) [...] results are final unless otherwise noted. MAGNESIUM [facility] Ordered by Maya Barron MD on 10/08/2020 Collected: 10/08/2020 Reported: 10/08/2020 03:17 Magnesium SerPl-mCnc 1.8 MilliGramsPerDeciLiter_[Mass_Concentration_Units] (1.3-2.7) N (Normal) Note: Responsible Observer: Magnesium Ma gnesium 400.3300 (G) Reviewed by Maya Barron MD on 10/09; All test results are final unless otherwise noted. D-DIMER [facility] Ordered by aMya Barron MD on 10/08/2020 Collected: 10/08/2020 Reported: [...] are final unless otherwise noted. Reported Physicians [facility] Ordered by Maya Barron MD on 10/08/2020 Collected: 10/08/2020 Reported: 10/08/2020 03:27 Reported Physicians See Note None Note: Reported Physicians:Ordering: Sana Recinosending: Sammie Ann To: Maya Barron Reviewed by Maya Barron MD on 10/09; All test results are final unless otherwise noted. BMP [facility] Ordered by Maya Barron MD on [...] are final unless otherwise noted. Reported Physicians [facility] Ordered by Maya Barron MD on 10/08/2020 Collected: 10/08/2020 Reported: 10/08/2020 03:21 Reported Physicians See Note None Note: Reported Physicians:Ordering: Sana Recinosending: Sammie Ann To: aMya Barron Reviewed by Maya Barron MD on 10/09; All test results are final unless otherwise noted. SED RATE [facility] Ordered by Maya Barron MD on 10/04/2020 Collected: 10/04/2020 Reported: 10/04/2020 18:05 ESR Bld Qn Westrgrn 16 (0-20) N (Normal) Note: @[facility] manual test result: 16@by Jia Lentz at 10/04/20 1805.Responsible Observer: SED RATE SED RATE 100.6400 (B) Reviewed by Maya Barron MD on 10/09; All test results are final unless otherwise noted. Reported Physicians [facility] Ordered by Maya Barron MD on 10/04/2020 Collected: 10/04/2020 Reported: 10/04/2020 18:06 Reported Physicians See Note None Note: Reported Physicians:Ordering: Les Vanegasding: Fady Raza To: Myaa Barrno Reviewed by Maya Barron MD on 10/09; All test results are final unless otherwise noted. CBC W AUTO DIFF [facility] Ordered by Maya Barron MD on [...] Auto See Note (0-2) N (Normal) Note: [id number] Ob senior sql server developer: IG% IG% 100.1375 (B) [...] test results are final unless otherwise noted. [facility] Ordered by Maya Barron [...] are final unless otherwise noted. Reported Physicians [facility] Ordered by Maya Barron MD on 10/04/2020 Collected: 10/04/2020 Reported: 10/04/2020 17:42 Reported Physicians See Note None Note: Reported Physicians:Ordering: Les Vanegas: Fady Raza To: Maya Barron Reviewed by Maya Barron MD on 10/09; All test results are final unless otherwise noted. TROPONIN [facility] Ordered by Maya Barron MD on 10/04/2020 Collected: 10/04/2020 Reported: 10/04/2020 17:35 Troponin I SerPl-mCnc Less Than 0.015 (0.00-0.09) N (Normal) Note: Less than 0.09 NG/ML Negative 0.10 - 0.77 NG/ML High Risk0.78 NG/ML or Greater PositiveThe WHO defined the cutoff (definition for diagnosis of ID)for this method as 0.78 ng/ml.Responsible Observer: Troponin I Troponin I 600.1101 (G) Reviewed by Maya Barron MD on 10/09; All test results are final unless otherwise noted. Reported Physicians [facility] Ordered by Maya Barron MD on 10/04/2020 Collected: 10/04/2020 Reported: 10/04/2020 17:35 Reported Physicians See Note None Note: Reported Physicians:Ordering: Les Vanegas: Fady Raza To: Maya Barron Reviewed by Maya Barron MD on 10/09; All test results are final unless otherwise noted. TSH w/ reflex to Free T4 [facility] Ordered by Maya Barron MD on 10/04/2020 Collected: 10/04/2020 Reported: 10/04/2020 17:42 TSH SerPl DL<=0.005 mIU/L-aCnc 1.92 MicroInternationalUnitsPerMilliLiter_[Arbitrary_Con (0.35-5. 50) N (Normal) Note: Responsible Observer: TSH TSH 600 .7060 (D) Reviewed by Maya Barron MD on 10/09; All test results are final unless otherwise noted. Reported Physicians [facility] Ordered by Maya Barron MD on 10/04/2020 Collected: 10/04/2020 Reported: 10/04/2020 17:42 Reported Physicians See Note None Note: Reported Physicians:Ordering: Les Vanegas AAttending: Fady Raza To: Maya Barron Reviewed by Maya Barron MD on 10/09; All test results are final unless otherwise noted. [facility] Quantitative [facility] Ordered by Maya Barron MD on 10/03/2020 Collected: 10/03/2020 Reported: 10/03/2020 20:23 B-HCG [facility] [address] MilliInternationalUnitsPerMilliLiter_[Arbitrary_Con (0-10) H (High) Note: @Instrument will autodiluteAPPROXI MATE GESTATION AGE APRROXIMATE HCG RANGE 0-1 WEEK 0 - 50 1-2 WEEKS 40 - 300 2-3 WEEKS 100 - 1,000 3-4 WEEKS 500 - 6,000 1-2 MONTHS 5,000 - 200,000 2-3 MONTHS 10,000 - 100,000 2ND TRIMESTER 3,000 - 50,000 3RD TRIMESTER 1,000 - 50,000Responsible Observer: [facility] Quant [facility] Quantitative 600.5006 (G) Reviewed by Maya Barron MD on 10/04; All test results are final unless otherwise noted. Reported Physicians [facility] Ordered by Maya Barron MD on 10/03/2020 Collected: 10/03/2020 Reported: 10/03/2020 20:23 Reported Physicians See Note None Note: Reported Physicians:Ordering: Cliff Napolesending: Charles Silva To: Maya Barron Reviewed by Maya Barron MD on 10/04; All test results are final unless otherwise noted. MANUAL DIFF [facility] Ordered by Maya Barron MD on [...] CELLS COUNTED 100.2105 (A) Reviewed by Maya Barorn MD on 10/04; All test results are final unless otherwise noted. Reported Physicians [facility] Ordered by Maya Barron MD on 10/03/2020 Collected: 10/03/2020 Reported: 10/03/2020 19:56 Reported Physicians See Note None Note: Reported Physicians:Ordering: Brook yeung, PatAttending: Yoli SilvaCopyifan To: Maya Barron Reviewed by Maya Barron MD on 10/04; All test results are final unless otherwise noted. FREE T4 (LAB) [facility] Ordered by Maya Barron MD on 10/03/2020 Collected: 10/03/2020 Reported: 10/03/2020 20:08 T4 Free SerPl-mCnc 0.97 NanoGramsPerDeciLiter_[Mass_Concentration_Units] (0.89-1.76) N (Normal) Note: Responsible Observer: FREE T4 Free Thyroxine 600.7005 (D) Reviewed by Maya Barron MD on 10/04; All test results are final unless otherwise noted. Reported Physicians [facility] Ordered by Maya Barron MD on 10/03/2020 Collected: 10/03/2020 Reported: 10/03/2020 20:08 Reported Physicians See Note None Note: Reported Physicians:Ordering: Brook yeung, PatAttending: Yoli SilvaCopyifan To: Maya Barron Reviewed by Maya Barron MD on 10/04; All test results are final unless otherwise noted. CBC W AUTO DIFF [facility] Ordered by Maya Barron MD on [...] Auto See Note (0-2) N (Normal) Note: [id number] Ob senior sql server developer: IG% IG% 100.1375 (B) [...] 100.1360 (B) NOTES See Note None Note: @10/03/208: MANUAL DIFF added. RFLXG = DIFF. Reviewed by Maya Barron MD on 10/04; All test results are final unless otherwise noted. [facility] Ordered by Maya Barron [...] are final unless otherwise noted. Reported Physicians [facility] Ordered by Maya Barron MD on 10/03/2020 Collected: 10/03/2020 Reported: 10/03/2020 20:03 Reported Physicians See Note None Note: Reported Physicians:Ordering: Cliff Napolesending: Charles Silva To: Maya Barron Reviewed by Maya Barron MD on 10/04; All test results are final unless otherwise noted. TROPONIN [facility] Ordered by Maya Barron MD on 10/03/2020 Collected: 10/03/2020 Reported: 10/03/2020 20:07 Troponin I SerPl-mCnc Less Than 0.015 (0.00-0.09) N (Normal) Note: Less than 0.09 NG/ML Negative 0.10 - 0.77 NG/ML High Risk0.78 NG/ML or Greater PositiveThe WHO defined the cutoff (definition for diagnosis of ID)for this method as 0.78 ng/ml.Responsible Observer: Troponin I Troponin I 600.1101 (G) Reviewed by Maya Barron MD on 10/04; All test results are final unless otherwise noted. Reported Physicians [facility] Ordered by Maya Barron MD on 10/03/2020 Collected: 10/03/2020 Reported: 10/03/2020 20:07 Reported Physicians See Note None Note: Reported Physicians:Ordering: Cliff Napolesending: Charles Silva To: Maya Barron Reviewed by Maya Barron MD on 10/04; All test results are final unless otherwise noted. UA W/ CULTURE IF ABNORMAL [facility] Ordered by Maya Barron MD on 10/03/2020 Collected: 10/03/2020 Reported: 10/03/2020 19:52 Urobilinogen Ur Ql See Note (0.2-1 EU/dl) None Note: 0.2 EU/dl0.2 EU/[id number] E U/dlResponsible Observer: UROBILINOGEN UROBILINOGEN 300.4500 (C) RBC # Ur Strip NEGATIVE (NEGATIVE) None Note: Responsible Observer: BLOOD BLOOD 300.4652 (C) Prot Ur Ql Strip See Note (NEGATIVE) None Note: [id number] EResponsible Observer: PROTEIN PROTEIN 300.3750 (C) Ketones Ur Ql Strip See Note (NEGATIVE) None Note: [id number] EResponsible Observer: KETONE KETONE 300.3900 (C) Bilirub Ur Ql Strip.auto See Note (NEGATIVE) None Note: [id number] EResponsible Observer: BILIRUBIN BILIRUBIN 300.4550 (C) Glucose Ur Strip.auto-mCnc NEGATIVE (NEGATIVE) None Note: Responsible Observer: GLUCOSE GLUC OSE 300.3850 (C) Appearance Ur See Note (CLEAR) None Note: CLEARCLEARLCLEARResponsible Observ er: APPEARANCE APPEARANCE 300.3400 (A) Color Ur See Note None Note: YELLOWYELLOWLYELLOWResponsible Obs erver: COLOR COLOR 300.3330 (A) Leukocyte esterase Ur Ql Strip See Note (NEGATIVE) None Note: [id number]@DO MICR O!!!!A Culture has been added to this specimen per established criteriaResponsible Observer: LEUKOCYTES LEUKOCYTES 300.3576 (C) Nitrite Ur Ql Strip See Note (NEGATIVE) None Note: [id number] EResponsible Observer: NITRITE NITRITE 300.3652 (B) pH [...] are final unless otherwise noted. Urine culture [facility] Ordered by Maya Barron MD on 10/03/2020 Collected: 10/03/2020 Reported: 10/04/2020 13:10 Bacteria Ur Cult See Note None Note: NGNo growth.L1NG NOTES See Note None Note: @10/03/201951: Urine culture adde d. RFLXG = CULT.ADD. Reviewed by Maya Barron MD on 10/04; All test results are final unless otherwise noted. Reported Physicians [facility] Ordered by Maya Barron MD on 10/03/2020 Collected: 10/03/2020 Reported: 10/04/2020 13:10 Reported Physicians See Note None Note: Reported Physicians:Ordering: Yoli NapolesAttending: Charles Silva To: Maya Barron Reviewed by Maya Barron MD on 10/04; All test results are final unless otherwise noted. ADD ON MICROSCOPIC [facility] Ordered by Maya Barron MD on 10/03/2020 Collected: 10/03/2020 Reported: 10/03/2020 19:52 ADD ON MICROSCOPIC See Note (0-5) None Note: NOTES OTHER/NOT INTERPRETED Bacteria UrnS Ql Micro SMALL AMOUNT Bacteria UrnS Ql Micro SMALL AMOUNT Bacteria UrnS Ql Micro L Bacteria UrnS Ql Micro Bacteria UrnS Ql Micro Bacteria UrnS Ql Micro Bacteria UrnS Ql Micro [id number] Bacteria UrnS Ql Micro Bacteria UrnS Ql [...] are final unless otherwise noted. Reported Physicians [facility] Ordered by Maya Barron MD on 10/03/2020 Collected: 10/03/2020 Reported: 10/03/2020 19:52 Reported Physicians See Note None Note: Reported Physicians:Ordering: Yoli NapolesAttending: Charles Silva To: Maya Barron Reviewed by Maya Barron MD on 10/04; All test results are final unless otherwise noted. BHCG, QUANTITATIVE [facility] Ordered by Maya Barron MD on 09/18/2020 Collected: 09/18/2020 Reported: 09/18/2020 20:21 B-HCG SerPl-aCn [id number] MilliInternationalUnitsPerMilliLiter_[Arbitrary_Con (0-10) H (High) Note: APPROXIMATE GESTATION [...] are final unless otherwise noted. Reported Physicians [facility] Ordered by Maya Barron MD on 09/18/2020 Collected: 09/18/2020 Reported: 09/18/2020 20:22 Reported Physicians See Note None Note: Reported Physicians:Ordering: Cliff Napolesending: Charles Silva To: Maya Barron Reviewed by Maya Barron MD on 09/20; All test results are final unless otherwise noted. 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 [facility] Ordered by Maya Barron [...] are final unless otherwise noted. Reported Physicians [facility] Ordered by Maya Barron MD on 09/18/2020 Collected: 09/18/2020 Reported: 09/18/2020 20:10 Reported Physicians See Note None Note: Reported Physicians:Ordering: Yoli NapolesAttending: Charles Silva To: Maya Barron Reviewed by Maya Barron MD on 09/20; All test results are final unless otherwise noted. TROPONIN [facility] Ordered by Maya Barron MD on 09/18/2020 Collected: 09/18/2020 Reported: 09/18/2020 20:10 Troponin I SerPl-mCnc Less Than 0.015 (0.00-0.09) N (Normal) Note: Less than 0.09 NG/ML Negative 0.10 - 0.77 NG/ML High Risk0.78 NG/ML or Greater PositiveThe WHO defined the cutoff (definition for diagnosis of ID)for this method as 0.78 ng/ml.Responsible Observer: Troponin I Troponin I 600.1101 (G) Reviewed by Maya Barron MD on 09/20; All test results are final unless otherwise noted. Reported Physicians [facility] Ordered by Maya Barron MD on 09/18/2020 Collected: 09/18/2020 Reported: 09/18/2020 20:10 Reported Physicians See Note None Note: Reported Physicians:Ordering: Yoli NapolesAttending: Charles Silva To: Maya Barron Reviewed by Maya Barron MD on 09/20; All test results are final unless otherwise noted. Urine culture [facility] Ordered by Cat Gutierrez RPA on 09/11/2020 Collected: 09/11/2020 Reported: 09/12/2020 13:11 Bacteria Ur Cult See Note None Note: NGNo growth.L1NG NOTES See Note None Note: GEORGIANA PICKARD IN OTHER NAME IN MEDICAL RECORD Reviewed by Cat Gutierrez RPA on 09/12; All test results are final unless otherwise noted. Reported Physicians [facility] Ordered by Cat Gutierrez RPA on 09/11/2020 Collected: 09/11/2020 Reported: 09/12/2020 13:11 Reported Physicians See Note None Note: Reported Physicians:Ordering: Cat ConwayAttending: Cat Gutierrez Reviewed by Cat Gutierrez RPA on 09/12; All test results are final unless otherwise noted. UA W/ CULTURE IF ABNORMAL [facility] Ordered by Maya Barron MD on 09/10/2020 Collected: 09/10/2020 Reported: 09/10/2020 17:48 Urobilinogen Ur Ql See Note (0.2-1 EU/dl) None Note: 0.2 EU/dl0.2 EU/[id number] E U/dlResponsible Observer: UROBILINOGEN UROBILINOGEN 300.4500 (C) RBC # Ur Strip NEGATIVE (NEGATIVE) None Note: Responsible Observer: BLOOD BLOOD 300.4652 (C) Prot Ur Ql Strip See Note (NEGATIVE) None Note: [id number] EResponsible Observer: PROTEIN PROTEIN 300.3750 (C) Ketones Ur Ql Strip See Note (NEGATIVE) None Note: [id number] ble Observer: KETONE KETONE 300.3900 (C) Bilirub Ur Ql Strip.auto See Note (NEGATIVE) None Note: [id number] EResponsible Observer: BILIRUBIN BILIRUBIN 300.4550 (C) Glucose Ur Strip.auto-mCnc NEGATIVE (NEGATIVE) None Note: Responsible Observer: GLUCOSE GLUC OSE 300.3850 (C) Appearance Ur See Note (CLEAR) None Note: CLEARCLEARLCLEARResponsible Observ er: APPEARANCE APPEARANCE 300.3400 (A) Color Ur See Note None Note: YELLOWYELLOWLYELLOWResponsible Obs erver: COLOR COLOR 300.3330 (A) Leukocyte esterase Ur Ql Strip See Note (NEGATIVE) None Note: [id number] EResponsible Observer: LEUKOCYTES LEUKOCYTES 300.3576 (C) Nitrite Ur Ql Strip See Note (NEGATIVE) None Note: [id number] EResponsible Observer: NITRITE NITRITE 300.3652 (B) pH [...] are final unless otherwise noted. Reported Physicians [facility] Ordered by Maya Barron MD on 09/10/2020 Collected: 09/10/2020 Reported: 09/10/2020 17:48 Reported Physicians See Note None Note: Reported Physicians:Ordering: Les Vanegas: Fady Raza To: Maya Barron Reviewed by Maya Barron MD on 09/11; All test results are final unless otherwise noted. ABO/Rh Type [facility] Ordered by Myaa Barron MD on 09/10/2020 Collected: 09/10/2020 Reported: 09/10/2020 15:43 Blood bank studies Yes None Note: Responsible Observer: Prev. Histor y? Previous History? 100.0800 (A) Blood Type See Note None Note: OPO PositiveLResponsible Observer: Blood Type Blood Type 110.0950 (C) Reviewed by Maya Barron MD on 09/11; All test results are final unless otherwise noted. Reported Physicians [facility] Ordered by Maya Barron MD on 09/10/2020 Collected: 09/10/2020 Reported: 09/10/2020 15:43 Reported Physicians See Note None Note: Reported Physicians:Ordering: Les Vanegas: Fady Raza To: Maya Barron Reviewed by Maya Barron MD on 09/11; All test results are final unless otherwise noted. BHCG, QUANTITATIVE [facility] Ordered by Maya Barron MD on 09/10/2020 Collected: 09/10/2020 Reported: 09/10/2020 15:48 B-HCG [facility] [address] MilliInternationalUnitsPerMilliLiter_[Arbitrary_Con (0-10) H (High) Note: @Instrument will [...] are final unless otherwise noted. Reported Physicians [facility] Ordered by Maya Barron MD on 09/10/2020 Collected: 09/10/2020 Reported: 09/10/2020 15:49 Reported Physicians See Note None Note: Reported Physicians:Ordering: Les Vanegasding: Fady Raza To: Maya Barron Reviewed by Maya Barron MD on 09/11; All test results are final unless otherwise noted. COVID [facility] Ordered by Maya Barron MD on [...] findings,re- testing should be considered in consultation with[facility] health authorities. Laboratory test results shouldalways be considered in the context of clinicalobservations and epidemiological data in making a finaldiagnosis and patient management decisions.Please review the "Fact Sheets" and FDA authorizedlabeling available for health care providers andpatients using the following websites:https://www.[employer] .Victiv/home/Covid-19/HCP/NAAT/fact-pobje2kgtcq://www.[employer].Victiv/home/Cov id-19/Patients/NAAT/fact-fqwhk4Axsi test has been authorized by the FDA under anEmergency Use Authorization (EUA) for use by authorizedlaboratories.Due to the current public health emergency, [facility] is receiving a high volume of samples [...] information about COVID-19 can be foundat the [employer] website:www.[facility].Victiv/Covid19.THIS TEST WAS PERFORMED AT:[facility] [address]TIJNMYCLAUDY ONEILLesponsible Observer: COVID-19 COVID-19 ТАТЬЯНА (SARS-CoV-2) [id number] 914.3599 ([employer]) Reviewed by Maya Barron MD on 08/25; All test results are final unless otherwise noted. Reported Physicians [facility] Ordered by Maya Barron MD on 08/23/2020 Collected: 08/23/2020 Reported: 08/25/2020 03:57 Reported Physicians See Note None Note: Reported Physicians:Ordering: Sana Recinosending: Sammie Ann To: Maya Barron Reviewed by Maya Barron MD on 08/25; All test results are final unless otherwise noted. Rapid Strep [facility] Ordered by Maya Barron MD on 08/15/2020 [address] [place], [address] Collected: 08/15/2020 Reported: 08/15/2020 11:47 tel :[phone] strep antigen normal (negative) N (Normal) Reviewed by Maya Barron MD on 08/15; All test results are final unless otherwise noted. Urinalysis w/out microscopy [facility] Ordered by Maya Barron MD on 08/15/2020 [address] [place], [address] Specimen Source: Urine Collected: 08/15/2020 Reporte d: 08/15/2020 11:03 tel:[phone] bilirubin normal (neg) N (Normal) blood normal [...] unless otherwise noted. Extended hours FLU/COV2 NAAT [facility] Ordered by Maya Barron MD on 08/15/2020 Collected: 08/15/2020 Reported: 08/15/2020 15:55 Extended hours FLU/COV2 NAAT See Note None Note: TNPNo Reportable ResultLTNPNo Repo rtable QusnwiE6KNK NOTES See Note None Note: GEORGIANA PICKARD IN OTHER NAME IN MEDICAL RECORD Reviewed by Maya Barron MD on 08/16; All test results are final unless otherwise noted. Reported Physicians [facility] Ordered by Maya Barron MD on 08/15/2020 Collected: 08/15/2020 Reported: 08/15/2020 15:55 Reported Physicians See Note None Note: Reported Physicians:Ordering: Maya AlvarengaAttending: Maya Barron Reviewed by Maya Barron MD on 08/16; All test results are final unless otherwise noted. Sweta Raquel SARS/FLU [facility] Ordered by Maya Barron MD on 08/15/2020 Collected: 08/15/2020 Reported: 08/15/2020 15:55 Sweta Raquel SARS/FLU See Note None Note: Sweta Raquel is a rapid, automated q ualitative anddifferentiation of Influenza type A,B and KTCP-PZF-1XRME-RT-PCR testNORMAL VALUE IS "NOT DETECTED".Limitations of the sweta raquel Influenza A/B & QDEF-KWU-9knnyk method.Modifications to manufacturers recommendation and proceduresmay alter performance of the test.Negative results do not preclude Influenza A,B or SARS- SJH1loupoidicl and should not be used as the [...] out diseases caused by other bacterialor viral pathogens.63456-8FUKN-yuk CoV RNA Resp Ql ТАТЬЯНА+probeLNNSARS SARS-COV-2 NOT [id number]-YDQ-8 NOT [id number] RNA Resp Ql ТАТЬЯНА+probeLNNFLUAInfluenza A Not [id number] A Not Tfjdalqc25245-8LZRBN RNA Resp Ql ТАТЬЯНА+probeLNNINBInfluenza B Not [id number] B Not Detected NOTES See Note None Note: GEORGIANA PICKARD IN OTHER NAME IN MEDICAL RECORD Reviewed by Maya Barron MD on 08/18; All test results are final unless otherwise noted. Throat culture [facility] Ordered by Maya Barron MD on 08/15/2020 Collected: 08/15/2020 Reported: 08/17/2020 06:37 Throat culture results Normal Deisy None Reviewed by Maya Barron MD on 08/18; All test results are final unless otherwise noted. Reported Physicians [facility] Ordered by Maya Barron MD on 08/15/2020 Collected: 08/15/2020 Reported: 08/17/2020 06:37 Reported Physicians See Note None Note: Reported Physicians:Ordering: Maya AlvarengaAttending: Maya Barron Reviewed by Maya Barron MD on 08/18; All test results are final unless otherwise noted. GCAMP [facility] Ordered by Cat Gutierrez RPA on 08/09/2020 Collected: 08/09/2020 Reported: 08/11/2020 06:52 C trach rRNA XXX Ql ТАТЬЯНА+probe See Note (NOT DETECTED) None Note: NOT DETECTEDNOT [id number] 6NOT DETECTEDResponsible Observer: C.Trach RNA Chlamydia trachomatis DNA-ТАТЬЯНА 03383316 913.9900 ([employer]) N gonorrhoea rRNA XXX Ql ТАТЬЯНА+probe See Note (NOT DETECTED) None Note: NOT DETECTEDNOT [id number] 6NOT DETECTEDResponsible Observer: GC RNA Neisseria gonorrhoeae DNA -ТАТЬЯНА 92103326 913.9905 ([employer]) Chlamydia/GC DNA Note SEE NOTE None Note: The analytical performance charact eristics of thisassay, when used to test SurePath(TM) specimens have beendetermined by [employer]. The modifications havenot been cleared or approved by the FDA. This assay hasbeen validated pursuant to the CLIA regulations and isused for clinical purposes.For additional information, please refer tohttps://education.[employer].Victiv/faq/IWL182(This link is being provided for information/educational purposes only.)THIS TEST WAS PERFORMED AT:[facility] [address]KAMBIZ MERATI,MDResponsible Observer: GC/Chlam Note Chlamydia/GC DNA Note [id number] 913.3472 (A) NOTES See Note None Note: PICKARD:IN OTHER NAME IN MEDICAL RECORD Reviewed by Cat Gutierrez RPA on 08/12; All test results are final unless otherwise noted. Reported Physicians [facility] Ordered by Cat Gutierrez RPA on 08/09/2020 Collected: 08/09/2020 Reported: 08/11/2020 06:52 Reported Physicians See Note None Note: Reported Physicians:Ordering: Atte nding: Brenda, GaudencioanaCopy To: Maya Barron Reviewed by Cat Gutierrez RPA on 08/12; All test results are final unless otherwise noted. AFFIRM [facility] Ordered by Cat Gutierrez RPA on 08/09/2020 Collected: 08/09/2020 Reported: 08/11/2020 06:52 Dionna species DNA Probe NOT DETECTED (NOT DETECTED) None Note: THIS TEST WAS PERFORMED AT:[facility] [address] [address]ATHCUV MERATI,MDResponsible Observer: Dionna DNA Dionna species DNA Probe [id number] 913.2350 ([employer]) Gardnerella DNA Probe DETECTED (NOT DETECTED) H (High) Note: Increased levels of G. vaginalis m ay not be significantin the absence of signs and symptoms of bacterialvaginosis.Responsible Observer: Gardnerella DNA Gardnerella DNA Probe [id number] 913.2345 ([employer]) Trichomonas DNA Probe NOT DETECTED (NOT DETECTED) None Note: Responsible Observer: Trichomonas DNA Trichomonas DNA Probe 41517960 913.2340 ([employer]) NOTES See Note None Note: PICKARD:IN OTHER NAME IN MEDICAL RECORD Reviewed on 08/11/2020; All test result s are final unless otherwise noted. Reported Physicians [facility] Ordered by Cat Gutierrez RPA on 08/09/2020 Collected: 08/09/2020 Reported: 08/11/2020 06:52 Reported Physicians See Note None Note: Reported Physicians:Ordering: Atte nding: Gutierrez, GaudencioanaCopy To: Maya Barron Reviewed on 08/11/2020; All test result s are final unless otherwise noted. HPVI [facility] Ordered by Cat Gutierrez [facility] on 08/09/2020 Collected: 08/09/2020 Reported: 08/15/2020 06:53 Thin Prep Vag See Note None Note: See scanned reportSee scanned repo rtLSee scanned reportResponsible Observer: TP w/HPV if ASC Thinprep w/HPV if ASCUS 805.1454 ([facility]) NOTES See Note None Note: VCT63-51Azqjtvmily Technique: BRUS H-SPATULABody Site: CERVIX Reviewed by Cat Gutierrez RPA on 08/15; All test results are final unless otherwise noted. Reported Physicians [facility] Ordered by Cat Gutierrez [facility] on 08/09/2020 Collected: 08/09/2020 Reported: 08/15/2020 06:53 Reported Physicians See Note None Note: Reported Physicians:Ordering: Atte oralia: Gaudencio GutierrezanaCopy To: Maya Barron Reviewed by Cat Gutierrez [facility] on 08/15; All test results are final unless otherwise noted. MEDMATCH [facility] Ordered by Cat Gutierrez [facility] on 08/09/2020 Collected: 08/09/2020 Reported: 08/13/2020 15:56 MEDMATCH See scanned report None Note: Responsible Observer: MEDMATCH MED MATCH 910.77540 ([facility]) Reviewed by Cat Gutierrez [facility] on 08/14; All test results are final unless otherwise noted. Reported Physicians [facility] Ordered by Cat Gutierrez [facility] on 08/09/2020 Collected: 08/09/2020 Reported: 08/13/2020 15:56 Reported Physicians See Note None Note: Reported Physicians:Ordering: Atte nding: Gaudencio GutierrezanaCopy To: Maya Barron Reviewed by Cat Gutierrez [facility] on 08/14; All test results are final unless otherwise noted. ADD ON MICROSCOPIC [facility] Ordered by Cat Guteirrez [facility] on 08/09/2020 Collected: 08/09/2020 Reported: 08/09/2020 12:23 ADD ON MICROSCOPIC See Note (0-5) H (High) Note: NOTES OTHER/NOT INTERPRETED Bacteria UrnS Ql Micro SMALL AMOUNT Bacteria UrnS Ql Micro SMALL AMOUNT Bacteria UrnS Ql Micro L Bacteria UrnS Ql Micro Bacteria UrnS Ql Micro Bacteria UrnS Ql Micro Bacteria UrnS Ql Micro [id number] Bacteria UrnS Ql Micro Bacteria UrnS Ql [...] Ql Micro Mucous Threads UrnS Ql Micro [id number] Mucous Threads UrnS Ql Micro Mucous Threads UrnS Ql Micro MODERATE AMOUNT WBC # Ur Manual 5-8 @08/09/20 1210: UA W/ MICRO added. RFLXG = UMIC.Method of Collection:: Clean CatchResponsible Observer: WBC WBC 300.5000 (A) Reviewed by Cat Gutierrez RPA on 08/12; All test results are final unless otherwise noted. Reported Physicians [facility] Ordered by Cat Gutierrez RPA on 08/09/2020 Collected: 08/09/2020 Reported: 08/10/2020 17:47 Reported Physicians See Note None Note: Reported Physicians:Ordering: Atte nding: Rigo Gutierrez To: Maya Barron Reviewed by Cat Gutierrez RPA on 08/12; All test results are final unless otherwise noted. URINALYSIS [facility] Ordered by Cat Gutierrez RPA on 08/09/2020 Collected: 08/09/2020 Reported: 08/09/2020 12:23 Urobilinogen Ur Ql See Note (0.2-1 EU/dl) None Note: 1 EU/dl1 EU/[id number] EU/dlRe sponsible Observer: UROBILINOGEN UROBILINOGEN 300.4500 (C) RBC # Ur Strip NEGATIVE (NEGATIVE) None Note: Responsible Observer: BLOOD BLOOD 300.4650 (C) Prot Ur Ql Strip See Note (NEGATIVE) None Note: [id number] ble Observer: PROTEIN PROTEIN 300.3750 (C) Ketones Ur Ql Strip See Note (NEGATIVE) None Note: [id number] ble Observer: KETONE KETONE 300.3900 (C) Bilirub Ur Ql Strip.auto See Note (NEGATIVE) None Note: [id number] EResponsible Observer: BILIRUBIN BILIRUBIN 300.4550 (C) Glucose Ur Strip.auto-mCnc NEGATIVE (NEGATIVE) None Note: Responsible Observer: GLUCOSE GLUC OSE 300.3850 (C) Appearance Ur See Note (CLEAR) None Note: CLEARCLEARLCLEARResponsible Observ er: APPEARANCE APPEARANCE 300.3400 (A) Color Ur See Note None Note: DARK YELLOWDARK YELLOWLDARK YELLOW Responsible Observer: COLOR COLOR 300.3300 (A) Leukocyte esterase Ur Ql Strip See Note (NEGATIVE) None Note: [id number]@DO MICR O!!!!Responsible Observer: LEUKOCYTES LEUKOCYTES 300.3575 (C) Nitrite Ur Ql Strip See Note (NEGATIVE) None Note: [id number] EResponsible Observer: NITRITE NITRITE 300.3650 (B) pH [...] are final unless otherwise noted. Urine culture [facility] Ordered by Cat Gutierrez RPA on 08/09/2020 Collected: 08/09/2020 Reported: 08/10/2020 08:33 Bacteria Ur Cult See Note None Note: NGNo growth.L1NG Reviewed by Cat Gutierrez RPA on 08/14; All test results are final unless otherwise noted. HCV RFX ТАТЬЯНА [facility] Ordered by Cat Gutierrez RPA on 08/09/2020 Collected: 08/09/2020 Reported: 08/10/2020 17:47 HCV Ab Ser Ql See Note (NON-REACTIVE) None Note: AOW-YOJGRTQTHDQ-[id number] 7NON-REACTIVEResponsible Observer: HEP C ANTIBODY Hepatitis C Antibody [id number] 914.8305 ([employer]) HCV RNA Qualitative (ТАТЬЯНА) 0.54 (<1.00) None Note: HCV antibody was non-reactive. The re is no laboratoryevidence of HCV infection.In most cases, no further action is required. However,if recent HCV exposure is suspected, a test for HCV RNA(test code 64943) is suggested.For additional information please refer tohttp://education.[employer]/faq/FJJ13c0(This link is being provided for informational/educational purposes only.)THIS TEST WAS PERFORMED AT:[facility] [place] [id number] 855CLAUDY ONEILLesponsible Observer: SIG TO C/O SIGNAL TO CUTOFF [id number] 914.8360 ([employer]) NOTES See Note None Note: Patient Street Address: [address] [place] [address] [address] City: [place] [facility] Zip Code: [address]ofa Reviewed by Cat Gutierrez RPA on 08/12; All test results are final unless otherwise noted. Reported Physicians [facility] Ordered by Cat Gutierrez RPA on 08/09/2020 Collected: 08/09/2020 Reported: 08/10/2020 17:47 Reported Physicians See Note None Note: Reported Physicians:Ordering: Atte nding: Rigo Gutierrez To: Maya Barron Reviewed by Cat Gutierrez RPA on 08/12; All test results are final unless otherwise noted. Type and Screen [facility] Ordered by Cat Gutierrez RPA on [...] are final unless otherwise noted. Reported Physicians [facility] Ordered by Cat Gutierrez RPA on 08/09/2020 Collected: 08/09/2020 Reported: 08/09/2020 12:39 Reported Physicians See Note None Note: Reported Physicians:Ordering: Cat ConwayAttending: Cat GutierrezCopy To: Maya Barron Reviewed by Cat Gutierrez RPA on 08/10; All test results are final unless otherwise noted. Varicella-Zoster IgG Antibody [facility] Ordered by Cat Gutierrez RPA on 08/09/2020 Collected: 08/09/2020 Reported: 08/10/2020 17:47 VZV IgG Ser [facility] 242.10 None Note: Index Interpr etation --------- [...] Antibody Immunity Screen, ACIF.THIS TEST WAS PERFORMED AT:[facility] [address]YRGMZO ME RATI,MDResponsible Observer: VARICELLA IGG Varicella-Zoster IgG Antibody [id number] 814.0380 ([employer]) NOTES See Note None Note: Patient Street Address: [address] [place] [address] [address] City: [place] Zip Code: [address] Reviewed by Cat Gutierrez RPA on 08/12; All test results are final unless otherwise noted. 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 TSH [facility] Ordered by Cat Gutierrez RPA on 08/09/2020 Collected: 08/09/2020 Reported: 08/09/2020 14:24 TSH SerPl DL<=0.005 mIU/L-aCnc 1.18 MicroInternationalUnitsPerMilliLiter_[Arbitrary_Con (0.35-5. 50) N (Normal) Note: Responsible Observer: TSH TSH 600 .7055 (D) Reviewed by Cat Gutierrze RPA on 08/14; All test results are final unless otherwise noted. Lead (Venous) Wh.Bld [facility] Ordered by Cat Gutierrez RPA on 08/09/2020 Collected: 08/09/2020 Reported: 08/10/2020 17:47 Lead Bld-sCnc <1 (<5) None Note: See Note 1Note 1This test was faith granados and its analytical performancecharacteristics have been determined by [facility]. It has not been cleared or approved by theA. This assay has been validated pursuant to the CLIAregulations and is used for clinical purposes.THIS TEST WAS PERFORMED AT:[facility] [address]ITGHFMCLAUDY ONEILLesponsible Observer: Lead, WB Lead, Whole Blood [id number] 911.2190 ([facility]) NOTES See Note None Note: Patient Street Address: [address] [place] [address] [address] City: [place] State: [place] Zip Code: [address]kmjiba Reviewed by Cat Gutierrez RPA on 08/14; All test results are final unless otherwise noted. ncPN REF [facility] Ordered by Cat Gutierrez RPA on 08/09/2020 Collected: 08/09/2020 Reported: 08/13/2020 15:26 T pallidum Ab Ser Ql Aggl See Note (Nonreactive) None Note: [id number] onreactiveResponsible Observer: TP-PA Treponema pallidum Ab (TP-PA) [id number] 908.0286 ([facility]) HIV1 RNA SerPl Ql ТАТЬЯНА+probe See Note None Note: TNPNo Reportable ResultLTNPNo Repo rtable ResultLLEP.LIVENTNPResponsible Observer: HIV 1 RNA, QL T HIV 1 RNA, QL TMA [id number] 908.0254 ([facility]) HBV surface Ag SerPl Ql IA See Note (NON-REACTIVE) None Note: EGC-MCVDEYDIRHO-[id number] 5NON-REACTIVEResponsible Observer: HBSAG Hepatitis B Surface Antigen [id number] 910.2004 ([facility]) RUBV IgG SerPl IA-aCnc 1.76 None Note: Index Interpretatio n ----- <0.90 Not consistent with immunity 0.90-0.99 Equivocal > or = 1.00 Consistent with immunityThe presence of rubella IgG antibody suggestsimmunization or past or current infection withrubella virus.THIS TEST WAS PERFORMED AT:[facility] [address]KAEUTK MERATI,MDResponsible Observer: Rubella IgG Ab Rubella IgG Ab [id number] 911.2840 ([facility]) HIV1 Ab SerPlBld Ql IA.rapid See Note None Note: TNPNo Reportable ResultLTNPNo Repo rtable ResultLLEP.LIVENTNPResponsible Observer: HIV 1 AB HIV 1 AB [id number] 908.0250 ([facility]) HBsAg Confirmation See Note None Note: TNPNo Reportable ResultLTNPNo Repo rtable ResultLLEP.LIVENTNPResponsible Observer: HBsAg Confirm HBsAg Confirmation [id number] 910.2006 ([facility]) HIV (1&2) Screen, 4th Gen [...] for this purpose.For additional information please refer [email or web address].Victiv/faq/PXO885(This link is being provided for informational/educational purposes only.)The performance of this assay has not been clinicallyvalidated in patients less than 2 years old.THIS TEST WAS PERFORMED AT:[facility] [address]JHYATQCLAUDY ONEILLesponsible Observer: HIV ABS HIV (1&2) Screen, 4th Gen [id number] 908.0228 ([facility]) Reviewed by aCt Gutierrez RPA on 08/14; All test results are final unless otherwise noted. Reported Physicians [facility] Ordered by Cat Gutierrez RPA on 08/09/2020 Collected: 08/09/2020 Reported: 08/13/2020 15:27 Reported Physicians See Note None Note: Reported Physicians:Ordering: Attchandler barton: Rigo Gutierrez To: Maya Barron Reviewed by Cat Gutierrez RPA on 08/14; All test results are final unless otherwise noted. BHCG, QUANTITATIVE [facility] Ordered by Cat Gutierrez RPA on 08/08/2020 Collected: 08/08/2020 Reported: 08/08/2020 11:53 B-HCG [facility] [address] MilliInternationalUnitsPerMilliLiter_[Arbitrary_Con (0-10) H (High) Note: @Instrument will autodiluteAPPROXI MATE GESTATION AGE APRROXIMATE HCG RANGE 0-1 WEEK 0 - 50 1-2 WEEKS 40 - 300 2-3 WEEKS 100 - 1,000 3-4 WEEKS 500 - 6,000 1-2 MONTHS 5,000 - 200,000 2-3 MONTHS 10,000 - 100,000 2ND TRIMESTER 3,000 - 50,000 3RD TRIMESTER 1,000 - 50,000Responsible Observer: [facility],QUANT BHCG, QUANTITATIVE 600.5006 (G) Reviewed by Cat Gutierrez RPA on 08/08; All test results are final unless otherwise noted. Reported Physicians [facility] Ordered by Cat Gutierrez RPA on 08/08/2020 Collected: 08/08/2020 Reported: 08/08/2020 11:54 Reported Physicians See Note None Note: Reported Physicians:Ordering: Atte nding: Rigo Gutierrez To: Maya Barron Reviewed by Cat Gutierrez RPA on 08/08; All test results are final unless otherwise noted. CBC W AUTO DIFF [facility] Ordered by Cat Gutierrez RPA on [...] Auto See Note (0-2) N (Normal) Note: [id number] Ob senior sql server developer: IG% IG% 100.1375 (B) [...] test results are final unless otherwise noted. [facility] Ordered by Cat Gutierrez RPA [...] are final unless otherwise noted. Reported Physicians [facility] Ordered by Cat Gutierrez RPA on 08/01/2020 Collected: 08/01/2020 Reported: 08/01/2020 02:26 Reported Physicians See Note None Note: Reported Physicians:Ordering: Aj Ferreiraending: Jos Rivas To: Maya Barron Reviewed by Cat Gutierrez RPA on 08/01; All test results are final unless otherwise noted. Type and Screen [facility] Ordered by Cat Gutierrez RPA on [...] are final unless otherwise noted. Reported Physicians [facility] Ordered by Cat Gutierrez RPA on 08/01/2020 Collected: 08/01/2020 Reported: 08/01/2020 06:03 Reported Physicians See Note None Note: Reported Physicians:Ordering: Cristino FerreiraAttending: Jos Rivas To: Maya Barron Reviewed by Cat Gutierrez RPA on 08/01; All test results are final unless otherwise noted. BHCG, QUANTITATIVE [facility] Ordered by Cat Gutierrez RPA on 08/01/2020 Collected: 08/01/2020 Reported: 08/01/2020 02:26 B-HCG SerPl-aCn 92530 MilliInternationalUnitsPerMilliLiter_[Arbitrary_Con (0-10) H (High) Note: @Instrument will [...] are final unless otherwise noted. Reported Physicians [facility] Ordered by Cat Gutierrez RPA on 08/01/2020 Collected: 08/01/2020 Reported: 08/01/2020 02:26 Reported Physicians See Note None Note: Reported Physicians:Ordering: Aj Ferreiraending: Jos Rivas To: Maya Barron Reviewed by Cat Gutierrez RPA on 08/01; All test results are final unless otherwise noted. ADD ON MICROSCOPIC [facility] Ordered by Cat Gutierrez RPA on 08/01/2020 Collected: 08/01/2020 Reported: 08/01/2020 01:01 ADD ON MICROSCOPIC See Note (0-5) None Note: NOTES OTHER/NOT INTERPRETED Bacteria UrnS Ql Micro MODERATE AMOUNT Bacteria UrnS Ql Micro MODERATE AMOUNT Bacteria UrnS Ql Micro L Bacteria UrnS Ql Micro Bacteria UrnS Ql Micro Bacteria UrnS Ql Micro Bacteria UrnS Ql Micro [id number] Bacteria UrnS Ql Micro Bacteria UrnS Ql [...] are final unless otherwise noted. Reported Physicians [facility] Ordered by Cat Gutierrez RPA on 08/01/2020 Collected: 08/01/2020 Reported: 08/01/2020 01:01 Reported Physicians See Note None Note: Reported Physicians:Ordering: Aj Ferreiraending: Jos Rivas To: Maya Barron Reviewed by Cat Gutierrez RPA on 08/01; All test results are final unless otherwise noted. UA W/ CULTURE IF ABNORMAL [facility] Ordered by Cat Gutierrez RPA on 08/01/2020 Collected: 08/01/2020 Reported: 08/01/2020 01:01 Urobilinogen Ur Ql See Note (0.2-1 EU/dl) None Note: 0.2 EU/dl0.2 EU/[id number] E U/dlResponsible Observer: UROBILINOGEN UROBILINOGEN 300.4500 (C) RBC # Ur Strip SMALL (NEGATIVE) None Note: @DO MICRO!!!!Responsible Observer: BLOOD BLOOD 300.4652 (C) Prot Ur Ql Strip See Note (NEGATIVE) None Note: [id number] EResponsible Observer: PROTEIN PROTEIN 300.3750 (C) Ketones Ur Ql Strip See Note (NEGATIVE) None Note: 15 mg/dL15 mg/tWX971745014377 mg/d LResponsible Observer: KETONE KETONE 300.3900 (C) Bilirub Ur Ql Strip.auto See Note (NEGATIVE) None Note: [id number] EResponsible Observer: BILIRUBIN BILIRUBIN 300.4550 (C) Glucose Ur Strip.auto-mCnc NEGATIVE (NEGATIVE) None Note: Responsible Observer: GLUCOSE GLUC OSE 300.3850 (C) Appearance Ur See Note (CLEAR) None Note: CLEARCLEARLCLEARResponsible Observ er: APPEARANCE APPEARANCE 300.3400 (A) Color Ur See Note None Note: YELLOWYELLOWLYELLOWResponsible Obs erver: COLOR COLOR 300.3330 (A) Leukocyte esterase Ur Ql Strip See Note (NEGATIVE) None Note: [id number]@DO MICR O!!!!A Culture has been added to this specimen per established criteriaResponsible Observer: LEUKOCYTES LEUKOCYTES 300.3576 (C) Nitrite Ur Ql Strip See Note (NEGATIVE) None Note: [id number] EResponsible Observer: NITRITE NITRITE 300.3652 (B) pH [...] are final unless otherwise noted. Urine culture [facility] Ordered by Cat Gutierrez RPA on 08/01/2020 Collected: 08/01/2020 Reported: 08/02/2020 07:41 Urine culture result See Note None Note: Greater than 100,000 CFU/MLLactoba cilli no senst done NOTES See Note None Note: @08/01/20 0101: Urine culture adde d. RFLXG = CULT.ADD. Reviewed by Cat Gutierrez RPA on 08/02; All test results are final unless otherwise noted. Reported Physicians [facility] Ordered by Cat Gutierrez RPA on 08/01/2020 Collected: 08/01/2020 Reported: 08/02/2020 07:41 Reported Physicians See Note None Note: Reported Physicians:Ordering: Cristino FerreiraAttending: Jos Rivas To: Maya Barron Reviewed by Cat Gutierrez RPA on 08/02; All test results are final unless otherwise noted. BHCG, QUANTITATIVE [facility] Ordered by Cat Gutierrez RPA on 07/31/2020 Collected: 07/31/2020 Reported: 07/31/2020 16:53 B-HCG SerPl-aCnc 83587 MilliInternationalUnitsPerMilliLiter_[Arbitrary_Con (0-10) H (High) Note: @Instrument will [...] are final unless otherwise noted. Reported Physicians [facility] Ordered by Cat Gutierrez RPA on 07/31/2020 Collected: 07/31/2020 Reported: 07/31/2020 16:53 Reported Physicians See Note None Note: Reported Physicians:Ordering: Atte nding: Cat Gutierrez Reviewed by Cat Gutierrez RPA on 08/01; All test results are final unless otherwise noted. UA W/ CULTURE IF ABNORMAL [facility] Ordered by Cat Gutierrez RPA on 07/27/2020 Collected: 07/27/2020 Reported: 07/27/2020 21:36 Urobilinogen Ur Ql See Note (0.2-1 EU/dl) None Note: 0.2 EU/dl0.2 EU/piW78340033270.2 E U/dlResponsible Observer: UROBILINOGEN UROBILINOGEN 300.4500 (C) RBC # Ur Strip NEGATIVE (NEGATIVE) None Note: Responsible Observer: BLOOD BLOOD 300.4652 (C) Prot Ur Ql Strip See Note (NEGATIVE) None Note: [id number] EResponsible Observer: PROTEIN PROTEIN 300.3750 (C) Ketones Ur Ql Strip See Note (NEGATIVE) None Note: [id number] EResponsible Observer: KETONE KETONE 300.3900 (C) Bilirub Ur Ql Strip.auto See Note (NEGATIVE) None Note: [id number] EResponsible Observer: BILIRUBIN BILIRUBIN 300.4550 (C) Glucose Ur Strip.auto-mCnc NEGATIVE (NEGATIVE) None Note: Responsible Observer: GLUCOSE GLUC OSE 300.3850 (C) Appearance Ur See Note (CLEAR) None Note: CLEARCLEARLCLEARResponsible Observ er: APPEARANCE APPEARANCE 300.3400 (A) Color Ur See Note None Note: YELLOWYELLOWLYELLOWResponsible Obs erver: COLOR COLOR 300.3330 (A) Leukocyte esterase Ur Ql Strip See Note (NEGATIVE) None Note: [id number]@DO MICR O!!!!A Culture has been added to this specimen per established criteriaResponsible Observer: LEUKOCYTES LEUKOCYTES 300.3576 (C) Nitrite Ur Ql Strip See Note (NEGATIVE) None Note: [id number] EResponsible Observer: NITRITE NITRITE 300.3652 (B) pH [...] are final unless otherwise noted. Urine culture [facility] Ordered by Cat Gutierrez [facility] on 07/27/2020 Collected: 07/27/2020 Reported: 07/29/2020 07:36 Urine culture result 50,000 CFU/ML Lactobacilli no senst done None NOTES See Note None Note: @07/27/202136: Urine culture adde d. RFLXG = CULT.ADD. Reviewed by Cat Gutierrez RPA on 07/31; All test results are final unless otherwise noted. Reported Physicians [facility] Ordered by Cat Gutierrez [facility] on 07/27/2020 Collected: 07/27/2020 Reported: 07/29/2020 07:37 Reported Physicians See Note None Note: Reported Physicians:Ordering: Daquan BustamanteAttending: Carmina GoodisalCopy To: Maya Barron Reviewed by Cat Gutierrez RPA on 07/31; All test results are final unless otherwise noted. ADD ON MICROSCOPIC [facility] Ordered by Cat Gutierrez RPA on 07/27/2020 Collected: 07/27/2020 Reported: 07/27/2020 21:36 ADD ON MICROSCOPIC See Note (0-5) None Note: NOTES OTHER/NOT INTERPRETED Bacteria UrnS Ql Micro SMALL AMOUNT Bacteria UrnS Ql Micro SMALL AMOUNT Bacteria UrnS Ql Micro L Bacteria UrnS Ql Micro Bacteria UrnS Ql Micro Bacteria UrnS Ql Micro Bacteria UrnS Ql Micro [id number] Bacteria UrnS Ql Micro Bacteria UrnS Ql [...] are final unless otherwise noted. Reported Physicians [facility] Ordered by Cat Gutierrez RPA on 07/27/2020 Collected: 07/27/2020 Reported: 07/27/2020 21:37 Reported Physicians See Note None Note: Reported Physicians:Ordering: Daquan BustamanteAttending: Daquan GoodCopy To: Maya Barron Reviewed by Cat Gutierrez RPA on 07/28; All test results are final unless otherwise noted. CMP [facility] Ordered by Cat Gutierrez RPA on [...] are final unless otherwise noted. Reported Physicians [facility] Ordered by Cat Gutierrez RPA on 07/27/2020 Collected: 07/27/2020 Reported: 07/27/2020 20:37 Reported Physicians See Note None Note: Reported Physicians:Ordering: Daquan BustamanteAttending: Daquan GoodCopyifan To: Maya Barron Reviewed by Cat Gutierrez RPA on 07/28; All test results are final unless otherwise noted. Type and Screen [facility] Ordered by Cat Gutierrez RPA on [...] are final unless otherwise noted. Reported Physicians [facility] Ordered by Cat Gutierrez RPA on 07/27/2020 Collected: 07/27/2020 Reported: 07/27/2020 20:48 Reported Physicians See Note None Note: Reported Physicians:Ordering: Dauqan BustamanteAttending: Daquan GoodCopyifan To: Maya Barron Reviewed by Cat Gutierrez RPA on 07/28; All test results are final unless otherwise noted. CBC W AUTO DIFF [facility] Ordered by Cat Gutierrez RPA on [...] Auto See Note (0-2) N (Normal) Note: 0.20.1B84686605198.2Responsible Ob senior sql server developer: IG% IG% 100.1375 (B) [...] are final unless otherwise noted. Reported Physicians [facility] Ordered by Cat Gutierrez RPA on 07/27/2020 Collected: 07/27/2020 Reported: 07/27/2020 20:11 Reported Physicians See Note None Note: Reported Physicians:Ordering: Daquan BustamanteAttending: Ariella Good To: Maya Barron Reviewed by Cat Gutierrez RPA on 07/28; All test results are final unless otherwise noted. BHCG, QUANTITATIVE [facility] Ordered by Cat Gutiererz RPA on 07/27/2020 Collected: 07/27/2020 Reported: 07/27/2020 [...] are final unless otherwise noted. Reported Physicians [facility] Ordered by Cat Gutierrez RPA on 07/27/2020 Collected: 07/27/2020 Reported: 07/27/2020 22:08 Reported Physicians See Note None Note: Reported Physicians:Ordering: Daquan BustamanteAttending: Ariella Good To: Maya Barron Reviewed by Cat Gutierrez RPA on 07/28; All test results are final unless otherwise noted. BHCG, QUANTITATIVE [facility] Ordered by Maya Barron MD on 07/26/2020 Collected: 07/26/2020 Reported: 07/26/2020 16:48 B-HCG [facility] 4155 MilliInternationalUnitsPerMilliLiter_[Arbitrary_Con (0-10) H (High) Note: @Instrument [...] are final unless otherwise noted. Reported Physicians [facility] Ordered by Maya Barron MD on 07/26/2020 Collected: 07/26/2020 Reported: 07/26/2020 16:48 Reported Physicians See Note None Note: Reported Physicians:Ordering: Maya AlvarengaAttending: Maya Barron Reviewed by Maya Barron MD on 07/27; All test results are final unless otherwise noted. Sweta Raquel SARS/FLU [facility] Ordered by Bandar Cleveland PA-C on 07/25/2020 Collected: 07/25/2020 Reported: 07/25/2020 18:47 Sweta Raquel SARS/FLU See Note None Note: Sweta Raquel is a rapid, automated q ualitative anddifferentiation of Influenza type A,B and KQWS-PLH-9WNCT-RT-PCR testNORMAL VALUE IS "NOT DETECTED".Limitations of the sweta raquel Influenza A/B & WCKA-XZB-1ddtmt method.Modifications to manufacturers recommendation and proceduresmay alter performance of the test.Negative results do not preclude Influenza A,B or SARS- ADI3pimgzuvyzw and should not be used as the sole basis fortreatment or other management decisions. Results from theMomentCambas Raquel Influenza A/B & COV2 should be [...] out diseases caused by other bacterialor viral pathogens.52153-0LNOG-HgC-8 RNA Resp Ql ТАТЬЯНА+probeLNNOSNo O rganisms [id number] Organisms Detected Reviewed by Bandar Cleveland PA-C on 1; All test results are final unless otherwise noted. Reported Physicians [facility] Ordered by Bandar Cleveland PA-C on 07/25/2020 Collected: 07/25/2020 Reported: 07/25/2020 18:47 Reported Physicians See Note None Note: Reported Physicians:Ordering: Janice Wilsonending: Kami Cleveland To: Health, Public Reviewed by Bandar Cleveland PA-C on 1; All test results are final unless otherwise noted. Extended hours FLU/COV2 NAAT [facility] Ordered by Bandar Cleveland PA-C on 07/25/2020 Collected: 07/25/2020 Reported: 07/25/2020 18:47 Extended hours FLU/COV2 NAAT See Note None Note: TNPNo Reportable ResultLTNPNo Repo rtable [id number] Reviewed by Bandar Cleveland PA-C on 1; All test results are final unless otherwise noted. Reported Physicians [facility] Ordered by Bandar Cleveland PA-C on 07/25/2020 Collected: 07/25/2020 Reported: 07/25/2020 18:47 Reported Physicians See Note None Note: Reported Physicians:Ordering: Janice Wilsonending: Kami Cleveland To: Health, Public Reviewed by Bandar Cleveland PA-C on 1; All test results are final unless otherwise noted. CBC W AUTO DIFF [facility] Ordered by Maya Barron MD on [...] Auto See Note (0-2) N (Normal) Note: [id number] Ob senior sql server developer: IG% IG% 100.1375 (B) [...] test results are final unless otherwise noted. [facility] Ordered by Maya Barron MD [...] are final unless otherwise noted. Reported Physicians [facility] Ordered by Maya Barron MD on 07/22/2020 Collected: 07/22/2020 Reported: 07/22/2020 02:00 Reported Physicians See Note None Note: Reported Physicians:Ordering: Hong LandaverdeAttending: Alon Douglas To: Maya Barron Reviewed by Maya Barron MD on 07/24; All test results are final unless otherwise noted. Sweta Raquel SARS/FLU [facility] Ordered by Maya Barron MD on 07/22/2020 Collected: 07/22/2020 Reported: 07/22/2020 01:29 Sweta Raquel SARS/FLU See Note None Note: Sweta Raquel is a rapid, automated q ualitative anddifferentiation of Influenza type A,B and KEMW-ONK-0JMAU-RT-PCR testNORMAL VALUE IS "NOT DETECTED".Limitations of the sweta raquel Influenza A/B & HOOZ-DCS-2ewpuk method.Modifications to manufacturers recommendation and proceduresmay alter performance of the test.Negative results do not preclude Influenza A,B or SARS- UJQ6lesmntukgh and should not be used as the [...] out diseases caused by other bacterialor viral pathogens.30155-8KTJP-FfP-6 RNA Resp Ql ТАТЬЯНА+probeLNNOSNo O rganisms [id number] Organisms Detected Reviewed by Maya Barron MD on 07/24; All test results are final unless otherwise noted. Reported Physicians [facility] Ordered by Maya Barron MD on 07/22/2020 Collected: 07/22/2020 Reported: 07/22/2020 01:29 Reported Physicians See Note None Note: Reported Physicians:Ordering: Dominic Landaverdeending: Alon Douglas To: Maya Barron Reviewed by Maya Barron MD on 07/24; All test results are final unless otherwise noted. UA W/ CULTURE IF ABNORMAL [facility] Ordered by Maya Barron MD on 07/22/2020 Collected: 07/22/2020 Reported: 07/22/2020 01:10 Urobilinogen Ur Ql See Note (0.2-1 EU/dl) None Note: 0.2 EU/dl0.2 EU/tuV36018056381.2 E U/dlResponsible Observer: UROBILINOGEN UROBILINOGEN 300.4500 (C) RBC # Ur Strip NEGATIVE (NEGATIVE) None Note: Responsible Observer: BLOOD BLOOD 300.4652 (C) Prot Ur Ql Strip See Note (NEGATIVE) None Note: [id number] EResponsible Observer: PROTEIN PROTEIN 300.3750 (C) Ketones Ur Ql Strip See Note (NEGATIVE) None Note: [id number] EResponsible Observer: KETONE KETONE 300.3900 (C) Bilirub Ur Ql Strip.auto See Note (NEGATIVE) None Note: [id number] EResponsible Observer: BILIRUBIN BILIRUBIN 300.4550 (C) Glucose Ur Strip.auto-mCnc NEGATIVE (NEGATIVE) None Note: Responsible Observer: GLUCOSE GLUC OSE 300.3850 (C) Appearance Ur See Note (CLEAR) None Note: CLEARCLEARLCLEARResponsible Observ er: APPEARANCE APPEARANCE 300.3400 (A) Color Ur See Note None Note: YELLOWYELLOWLYELLOWResponsible Obs erver: COLOR COLOR 300.3330 (A) Leukocyte esterase Ur Ql Strip See Note (NEGATIVE) None Note: [id number] EResponsible Observer: LEUKOCYTES LEUKOCYTES 300.3576 (C) Nitrite Ur Ql Strip See Note (NEGATIVE) None Note: [id number] EResponsible Observer: NITRITE NITRITE 300.3652 (B) pH [...] are final unless otherwise noted. Reported Physicians [facility] Ordered by Maya Barron MD on 07/22/2020 Collected: 07/22/2020 Reported: 07/22/2020 01:11 Reported Physicians See Note None Note: Reported Physicians:Ordering: Hong LandaverdeAttending: Alon Douglas To: Maya Barron Reviewed by Maya Barron MD on 07/24; All test results are final unless otherwise noted. Extended hours FLU/COV2 NAAT [facility] Ordered by Maya Barron MD on 07/22/2020 Collected: 07/22/2020 Reported: 07/22/2020 01:29 Extended hours FLU/COV2 NAAT See Note None Note: TNPNo Reportable ResultLTNPNo Repo rtable RzjjzdN3FFH Reviewed by Maya Barron MD on 07/24; All test results are final unless otherwise noted. Reported Physicians [facility] Ordered by Maya Barron MD on 07/22/2020 Collected: 07/22/2020 Reported: 07/22/2020 01:29 Reported Physicians See Note None Note: Reported Physicians:Ordering: Hong LandaverdeAttending: Alon Douglas To: Maya Barron Reviewed by Maya Barron MD on 07/24; All test results are final unless otherwise noted. Urine culture [facility] Ordered by Maya Barron MD on 07/19/2020 Collected: 07/19/2020 Reported: 07/21/2020 07:48 Bacteria Ur Cult See Note None Note: NGNo growth.L1NG Reviewed by Maya Barron MD on 07/21; All test results are final unless otherwise noted. Reported Physicians [facility] Ordered by Maya Barron MD on 07/19/2020 Collected: 07/19/2020 Reported: 07/21/2020 07:49 Reported Physicians See Note None Note: Reported Physicians:Ordering: Maya AlvarengaAttending: Maya Barron Reviewed by Maya Barron MD on 07/21; All test results are final unless otherwise noted. BHCG, QUANTITATIVE [facility] Ordered by Maya Barron MD on [...] are final unless otherwise noted. Reported Physicians [facility] Ordered by Maya Barron MD on 07/17/2020 Collected: 07/17/2020 Reported: 07/17/2020 12:40 Reported Physicians See Note None Note: Reported Physicians:Ordering: Maya AlvarengaAttending: Maya Barron Reviewed by Maya Barron MD on 07/17; All test results are final unless otherwise noted. [facility] COVID-19 [employer] Ordered by Maya Barron MD on [...] molecular test, if the virus mutates in [place], Covid-19 may not be detected or may bedetected less predictably.ID NOW COVID-19 is intended for testing a swab directlywithout elution in viral transport media as dilution willresult in decreased detection of low positive samples thatare near the limit of detection of the test.SWAB SAMPLES ELUTED IN VTM ARE NOT APPROPRIATE FOR USE INTHIS TEST.NOSNo Organisms [id number] Organisms Detected Reviewed by Maya Barron MD on 05/31; All test results are final unless otherwise noted. Reported Physicians [facility] Ordered by Maya Barron MD on 05/31/2020 Collected: 05/31/2020 Reported: 05/31/2020 07:08 Reported Physicians See Note None Note: Reported Physicians:Ordering: Johnny HernándezAttending: Suzanne Cazares To: Maya Barron Reviewed by Maya Barron MD on 05/31; All test results are final unless otherwise noted. BHCG, QUANTITATIVE [facility] Ordered by Maya Barron MD on 05/26/2020 Collected: 05/26/2020 Reported: 05/26/2020 14:49 B[facility] [address] MilliInternationalUnitsPerMilliLiter_[Arbitrary_Con (0-10) H (High) Note: @Instrument will [...] are final unless otherwise noted. Reported Physicians [facility] Ordered by Maya Barron MD on 05/26/2020 Collected: 05/26/2020 Reported: 05/26/2020 14:50 Reported Physicians See Note None Note: Reported Physicians:Ordering: Maya AlvarengaAttending: Maya Barron Reviewed by Maya Barron MD on 05/26; All test results are final unless otherwise noted. URINALYSIS [facility] Ordered by Maya Barron MD on 05/23/2020 Collected: 05/23/2020 Reported: 05/23/2020 17:19 Urobilinogen Ur Ql See Note (0.2-1 EU/dl) None Note: 0.2 EU/dl0.2 EU/[id number] E U/dlResponsible Observer: UROBILINOGEN UROBILINOGEN 300.4500 (C) RBC # Ur Strip NEGATIVE (NEGATIVE) None Note: Responsible Observer: BLOOD BLOOD 300.4650 (C) Prot Ur Ql Strip See Note (NEGATIVE) None Note: [id number] EResponsible Observer: PROTEIN PROTEIN 300.3750 (C) Ketones Ur Ql Strip See Note (NEGATIVE) None Note: [id number] EResponsible Observer: KETONE KETONE 300.3900 (C) Bilirub Ur Ql Strip.auto See Note (NEGATIVE) None Note: [id number] EResponsible Observer: BILIRUBIN BILIRUBIN 300.4550 (C) Glucose Ur Strip.auto-mCnc NEGATIVE (NEGATIVE) None Note: Responsible Observer: GLUCOSE GLUC OSE 300.3850 (C) Appearance Ur See Note (CLEAR) None Note: CLEARCLEARLCLEARResponsible Observ er: APPEARANCE APPEARANCE 300.3400 (A) Color Ur See Note None Note: YELLOWYELLOWLYELLOWResponsible Obs erver: COLOR COLOR 300.3300 (A) Leukocyte esterase Ur Ql Strip See Note (NEGATIVE) None Note: [id number] EResponsible Observer: LEUKOCYTES LEUKOCYTES 300.3575 (C) Nitrite Ur Ql Strip See Note (NEGATIVE) None Note: [id number] EResponsible Observer: NITRITE NITRITE 300.3650 (B) pH [...] are final unless otherwise noted. Urine culture [facility] Ordered by Maya Barron MD on 05/23/2020 Collected: 05/23/2020 Reported: 05/24/2020 09:24 Bacteria Ur Cult See Note None Note: NGNo growth.L1NG Reviewed by Maya Barron MD on 05/29; All test results are final unless otherwise noted. MEDMATCH [facility] Ordered by Maya Barron MD on 05/23/2020 Collected: 05/23/2020 Reported: 05/26/2020 17:09 MEDMATCH 1.000 (> or = 1.003) None Note: Responsible Observer: MEDMATCH MED MATCH [phone] ([employer]) Reviewed by Maya Barron MD on 05/29; All test results are final unless otherwise noted. Reported Physicians [facility] Ordered by Maya Barron MD on 05/23/2020 Collected: 05/23/2020 Reported: 05/26/2020 17:09 Reported Physicians See Note None Note: Reported Physicians:Ordering: Maya AlvarengaAttending: Maya Barron Reviewed by Maya Barron MD on 05/29; All test results are final unless otherwise noted. Varicella-Zoster IgG Antibody [facility] Ordered by Maya Barron MD on [...] Antibody Immunity Screen, ACIF.THIS TEST WAS PERFORMED AT:[facility] [address]IKFLCI ME RATI,MDResponsible Observer: VARICELLA IGG Varicella-Zoster IgG Antibody [id number] 608.2484 ([employer]) NOTES See Note None Note: Patient Street Address: [facility] [address] [place]: [place] [address] Reviewed by Maya Barron MD on 05/26; All test results are final unless otherwise noted. Reported Physicians [facility] Ordered by Maya Barron MD on 05/23/2020 Collected: 05/23/2020 Reported: 05/25/2020 17:11 Reported Physicians See Note None Note: Reported Physicians:Ordering: Maya AlvarengaAttending: Maya Barron Reviewed by Maya Barron MD on 05/26; All test results are final unless otherwise noted. 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 TSH [facility] Ordered by Maya Barron MD on 05/23/2020 Collected: 05/23/2020 Reported: 05/23/2020 18:38 TSH SerPl DL<=0.005 mIU/L-aCnc 1.87 MicroInternationalUnitsPerMilliLiter_[Arbitrary_Con (0.35-5. 50) N (Normal) Note: Responsible Observer: TSH TSH 600 .7055 (D) Reviewed by Maya Barron MD on 05/29; All test results are final unless otherwise noted. Lead (Venous) Wh.Bld [facility] Ordered by Maya Barron MD on 05/23/2020 Collected: 05/23/2020 Reported: 05/25/2020 17:11 Lead Bld-sCnc <1 (<5) None Note: See Note 1Note 1This test was faith granados and its analytical performancecharacteristics have been determined by [employer]. It has not been cleared or approved by theA. This assay has been validated pursuant to the CLIAregulations and is used for clinical purposes.THIS TEST WAS PERFORMED AT:[facility] [address]QYXWYGCLAUDY ONEILLesponsible Observer: Lead, WB Lead, Whole Blood [id number] 914.8933 ([facility]) NOTES See Note None Note: Patient Street Address: [facility] City: [place]: [address] Reviewed by Maya Barron MD on 05/29; All test results are final unless otherwise noted. ncPN REF [facility] Ordered by Maya Barron MD on 05/23/2020 Collected: 05/23/2020 Reported: 05/27/2020 20:54 T pallidum Ab Ser Ql Aggl See Note (Nonreactive) None Note: [id number] onreactiveResponsible Observer: TP-PA Treponema pallidum Ab (TP-PA) [id number] 908.0286 ([facility]) HIV1 RNA SerPl Ql ТАТЬЯНА+probe See Note None Note: TNPNo Reportable ResultLTNPNo Repo rtable ResultLLEP.LIVENTNPResponsible Observer: HIV 1 RNA, QL T HIV 1 RNA, QL TMA 98505140 908.0254 ([facility]) HBV surface Ag SerPl Ql IA See Note (NON-REACTIVE) None Note: XAB-ZCFAVYJICGE-[id number]-REACTIVEResponsible Observer: HBSAG Hepatitis B Surface Antigen 80956661 910.2004 ([facility]) RUBV IgG SerPl IA-aCnc 1.80 None Note: Index Interpretatio n ----- <0.90 Not consistent with Immunity 0.90-0.99 Equivocal > or = 1.00 Consistent with ImmunityThe presence of rubella IgG antibody suggestsimmunization or past or current infection withrubella virus.THIS TEST WAS PERFORMED AT:[facility] [address]HLKWLZ MERATI,MDResponsible Observer: Rubella IgG Ab Rubella IgG Ab [id number] 911.2840 ([facility]) HIV1 Ab SerPlBld Ql IA.rapid See Note None Note: TNPNo Reportable ResultLTNPNo Repo rtable ResultLLEP.LIVENTNPResponsible Observer: HIV 1 AB HIV 1 AB [id number] 908.0250 ([facility]) HBsAg Confirmation See Note None Note: TNPNo Reportable ResultLTNPNo Repo rtable ResultLLEP.LIVENTNPResponsible Observer: HBsAg Confirm HBsAg Confirmation [id number] 910.2006 ([facility]) HIV (1&2) Screen, 4th Gen [...] for this purpose.For additional information please refer tohttp://BlackJet.Gratci/faq/LEE631(This link is being provided for informational/educational purposes only.)The performance of this assay has not been clinicallyvalidated in patients less than 2 years old.Responsible Observer: HIV ABS HIV (1&2) Screen, 4th Gen [id number] 908.0538 ([facility]) Reviewed by Maya Barron MD on 05/29; All test results are final unless otherwise noted. Reported Physicians [facility] Ordered by Maya Barron MD on 05/23/2020 Collected: 05/23/2020 Reported: 05/27/2020 20:54 Reported Physicians See Note None Note: Reported Physicians:Ordering: Maya AlvarengaAttending: Maya Barron Reviewed by Maya Barron MD on 05/29; All test results are final unless otherwise noted. HCV RFX ТАТЬЯНА [facility] Ordered by Maya Barron MD on 05/23/2020 Collected: 05/23/2020 Reported: 05/25/2020 17:11 HCV Ab Ser Ql See Note (NON-REACTIVE) None Note: DEN-WESTKYXQOGO-[id number] 7NON-REACTIVEResponsible Observer: HEP C ANTIBODY Hepatitis C Antibody [id number] 914.8305 ([facility]) HCV RNA Qualitative (ТАТЬЯНА) 0.59 (<1.00) None Note: HCV antibody was non-reactive. The re is no laboratoryevidence of HCV infection.In most cases, no further action is required. However,if recent HCV exposure is suspected, a test for HCV RNA(test code 11280) is suggested.For additional information please refer tohttp://BlackJet.Gratci/faq/ATA61y9(This link is being provided for informational/educational purposes only.)THIS TEST WAS PERFORMED AT:[facility] [address]TERELLGRACE MEANSMDResponsible Observer: SIG TO C/O SIGNAL TO CUTOFF [id number] 369.3236 ([facility]) NOTES See Note None Note: Patient Street Address: [address] [facility]: [facility] State: [facility] Zip Code: [address] Reviewed by Maya Barron MD on 05/26; All test results are final unless otherwise noted. Reported Physicians [facility] Ordered by Maya Barron MD on 05/23/2020 Collected: 05/23/2020 Reported: 05/25/2020 17:11 Reported Physicians See Note None Note: Reported Physicians:Ordering: Maya AlvarengaAttending: Maya Barron Reviewed by Maya Barron MD on 05/26; All test results are final unless otherwise noted. Type and Screen [facility] Ordered by Maya Barron MD on [...] are final unless otherwise noted. Reported Physicians [facility] Ordered by Maya Barron MD on 05/23/2020 Collected: 05/23/2020 Reported: 05/23/2020 19:32 Reported Physicians See Note None Note: Reported Physicians:Ordering: Maya AlvarengaAttending: Maya Barron Reviewed by Maya Barron MD on 05/24; All test results are final unless otherwise noted. PROGESTERONE [facility] Ordered by Maya Barron MD on [...] are final unless otherwise noted. Reported Physicians [facility] Ordered by Maya Barron MD on 04/27/2020 Collected: 04/27/2020 Reported: 04/27/2020 15:58 Reported Physicians See Note None Note: Reported Physicians:Ordering: Johnny HernándezAttending: Jos Castellanos To: Rubén Barron To: Cristino Castellanos Reviewed by Maya Barron MD on 04/30; All test results are final unless otherwise noted. BHCG, QUANTITATIVE [facility] Ordered by Maya Barron MD on 04/27/2020 Collected: 04/27/2020 Reported: 04/27/2020 14:40 [facility] [address] MilliInternationalUnitsPerMilliLiter_[Arbitrary_Con (0-10) H (High) Note: @Instrument [...] are final unless otherwise noted. Reported Physicians [facility] Ordered by Maya Barron MD on 04/27/2020 Collected: 04/27/2020 Reported: 04/27/2020 14:40 Reported Physicians See Note None Note: Reported Physicians:Ordering: Cristino SnowAttending: Cristino CastellanosCopy To: Johnny CazaresCopyifan To: Maya Barron Reviewed by Maya Barron MD on 04/30; All test results are final unless otherwise noted. 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 [facility] Ordered by Maya Barron [...] are final unless otherwise noted. Reported Physicians [facility] Ordered by Maya Barron MD on 04/25/2020 Collected: 04/25/2020 Reported: 04/25/2020 22:11 Reported Physicians See Note None Note: Reported Physicians:Ordering: Aj Ferreiraending: Jos Rivas To: Maya Barron Reviewed by Maya Barron MD on 04/26; All test results are final unless otherwise noted. BHCG, QUANTITATIVE [facility] Ordered by Maya Barron MD on 04/25/2020 Collected: 04/25/2020 Reported: 04/25/2020 22:11 [facility] MilliInternationalUnitsPerMilliLiter_[Arbitrary_Con (0-10) H (High) Note: @Instrument [...] are final unless otherwise noted. Reported Physicians [facility] Ordered by Maya Barron MD on 04/25/2020 Collected: 04/25/2020 Reported: 04/25/2020 22:11 Reported Physicians See Note None Note: Reported Physicians:Ordering: Aj Ferreiraending: Jos Rivas To: Maya Barron Reviewed by Maya Barron MD on 04/26; All test results are final unless otherwise noted. Urine culture [facility] Ordered by Maya Barron MD on 04/25/2020 Collected: 04/25/2020 Reported: 04/27/2020 04:50 Bacteria Ur Cult See Note None Note: NGNo growth.L1NG NOTES See Note None Note: @ NICOLE DATE was changed from 04/26 to 04/25/20@ by LEONARDO. Reviewed by Maya Barron MD on 04/30; All test results are final unless otherwise noted. Reported Physicians [facility] Ordered by Maya Barron MD on 04/25/2020 Collected: 04/25/2020 Reported: 04/27/2020 04:51 Reported Physicians See Note None Note: Reported Physicians:Ordering: Aj eFrreiraending: Jos Rivas To: Maya Barron Reviewed by Maya Barron MD on 04/30; All test results are final unless otherwise noted. ADD ON MICROSCOPIC [facility] Ordered by Maya Barron MD on 04/25/2020 Collected: 04/25/2020 Reported: 04/25/2020 21:54 ADD ON MICROSCOPIC See Note (0-5) None Note: NOTES OTHER/NOT INTERPRETED Bacteria UrnS Ql Micro SMALL AMOUNT Bacteria UrnS Ql Micro SMALL AMOUNT Bacteria UrnS Ql Micro L Bacteria UrnS Ql Micro Bacteria UrnS Ql Micro Bacteria UrnS Ql Micro Bacteria UrnS Ql Micro [id number] Bacteria UrnS Ql Micro Bacteria UrnS Ql [...] are final unless otherwise noted. Reported Physicians [facility] Ordered by Maya Barron MD on 04/25/2020 Collected: 04/25/2020 Reported: 04/25/2020 21:54 Reported Physicians See Note None Note: Reported Physicians:Ordering: Aj Ferreiraending: Jos Rivas To: Maya Barron Reviewed by Maya Barron MD on 04/26; All test results are final unless otherwise noted. URINALYSIS [facility] Ordered by Maya Barron MD on 04/25/2020 Collected: 04/25/2020 Reported: 04/25/2020 21:54 Urobilinogen Ur Ql See Note (0.2-1 EU/dl) None Note: 0.2 EU/dl0.2 EU/fjA62030452294.2 E U/dlResponsible Observer: UROBILINOGEN UROBILINOGEN 300.4500 (C) RBC # Ur Strip NEGATIVE (NEGATIVE) None Note: Responsible Observer: BLOOD BLOOD 300.4650 (C) Prot Ur Ql Strip See Note (NEGATIVE) None Note: [id number] EResponsible Observer: PROTEIN PROTEIN 300.3750 (C) Ketones Ur Ql Strip See Note (NEGATIVE) None Note: [id number] EResponsible Observer: KETONE KETONE 300.3900 (C) Bilirub Ur Ql Strip.auto See Note (NEGATIVE) None Note: [id number] EResponsible Observer: BILIRUBIN BILIRUBIN 300.4550 (C) Glucose Ur Strip.auto-mCnc NEGATIVE (NEGATIVE) None Note: Responsible Observer: GLUCOSE GLUC OSE 300.3850 (C) Appearance Ur See Note (CLEAR) None Note: CLEARCLEARLCLEARResponsible Observ er: APPEARANCE APPEARANCE 300.3400 (A) Color Ur See Note None Note: YELLOWYELLOWLYELLOWResponsible Obs erver: COLOR COLOR 300.3300 (A) Leukocyte esterase Ur Ql Strip See Note (NEGATIVE) None Note: [id number]@DO MICR O!!!!Responsible Observer: LEUKOCYTES LEUKOCYTES 300.3575 (C) Nitrite Ur Ql Strip See Note (NEGATIVE) None Note: [id number] EResponsible Observer: NITRITE NITRITE 300.3650 (B) pH [...] are final unless otherwise noted. Reported Physicians [facility] Ordered by Maya Barron MD on 04/25/2020 Collected: 04/25/2020 Reported: 04/25/2020 21:54 Reported Physicians See Note None Note: Reported Physicians:Ordering: Aj Ferreiraending: Jos Rivas To: Maya Barron Reviewed by Maya Barron MD on 04/26; All test results are final unless otherwise noted. BHCG, QUANTITATIVE [facility] Ordered by Maya Barron MD on [...] are final unless otherwise noted. Reported Physicians [facility] Ordered by Maya Barron MD on 04/18/2020 Collected: 04/18/2020 Reported: 04/18/2020 15:11 Reported Physicians See Note None Note: Reported Physicians:Ordering: Maya AlvarengaAttending: Maya Barron Reviewed by Maya Barron MD on 04/19; All test results are final unless otherwise noted. ADD ON MICROSCOPIC [facility] Ordered by Maya Barron MD on 04/16/2020 Collected: 04/16/2020 Reported: 04/16/2020 23:51 ADD ON MICROSCOPIC See Note (0-5) None Note: NOTES OTHER/NOT INTERPRETED Bacteria UrnS Ql Micro SMALL AMOUNT Bacteria UrnS Ql Micro SMALL AMOUNT Bacteria UrnS Ql Micro L Bacteria UrnS Ql Micro Bacteria UrnS Ql Micro Bacteria UrnS Ql Micro Bacteria UrnS Ql Micro [id number] Bacteria UrnS Ql Micro Bacteria UrnS Ql [...] are final unless otherwise noted. Reported Physicians [facility] Ordered by Maya Barron MD on 04/16/2020 Collected: 04/16/2020 Reported: 04/16/2020 23:52 Reported Physicians See Note None Note: Reported Physicians:Ordering: Damon , VinodAttending: Damon, VinodCopy To: Maya Barron Reviewed by Maya Barron MD on 04/17; All test results are final unless otherwise noted. UA W/ CULTURE IF ABNORMAL [facility] Ordered by Maya Barron MD on 04/16/2020 Collected: 04/16/2020 Reported: 04/16/2020 23:51 Urobilinogen Ur Ql See Note (0.2-1 EU/dl) None Note: 0.2 EU/dl0.2 EU/[id number] E U/dlResponsible Observer: UROBILINOGEN UROBILINOGEN 300.4500 (C) RBC # Ur Strip NEGATIVE (NEGATIVE) None Note: Responsible Observer: BLOOD BLOOD 300.4652 (C) Prot Ur Ql Strip See Note (NEGATIVE) None Note: [id number] EResponsible Observer: PROTEIN PROTEIN 300.3750 (C) Ketones Ur Ql Strip See Note (NEGATIVE) None Note: [id number] ble Observer: KETONE KETONE 300.3900 (C) Bilirub Ur Ql Strip.auto See Note (NEGATIVE) None Note: [id number] EResponsible Observer: BILIRUBIN BILIRUBIN 300.4550 (C) Glucose Ur Strip.auto-mCnc NEGATIVE (NEGATIVE) None Note: Responsible Observer: GLUCOSE GLUC OSE 300.3850 (C) Appearance Ur See Note (CLEAR) None Note: CLEARCLEARLCLEARResponsible Observ er: APPEARANCE APPEARANCE 300.3400 (A) Color Ur See Note None Note: YELLOWYELLOWLYELLOWResponsible Obs erver: COLOR COLOR 300.3330 (A) Leukocyte esterase Ur Ql Strip See Note (NEGATIVE) None Note: [id number] E@DO MICRO!!!!A Culture has been added to this specimen per established criteriaResponsible Observer: LEUKOCYTES LEUKOCYTES 300.3576 (C) Nitrite Ur Ql Strip See Note (NEGATIVE) None Note: [id number] EResponsible Observer: NITRITE NITRITE 300.3652 (B) pH [...] are final unless otherwise noted. Urine culture [facility] Ordered by Maya Barron MD on 04/16/2020 Collected: 04/16/2020 Reported: 04/18/2020 06:47 Urine culture result See Note None Note: Less than 10,000 CFU/MLNormal Comm ensal FloraProbable contaminants no senst done NOTES See Note None Note: @04/16/20 2351: Urine culture adde d. RFLXG = CULT.ADD. Reviewed by Maya Barron MD on 04/18; All test results are final unless otherwise noted. Reported Physicians [facility] Ordered by Maya Barron MD on 04/16/2020 Collected: 04/16/2020 Reported: 04/18/2020 06:47 Reported Physicians See Note None Note: Reported Physicians:Ordering: Randy Joseending: Jose E JoseodManny To: Maya Barron Reviewed by Maya Barron MD on 04/18; All test results are final unless otherwise noted. 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 BHCG, QUANTITATIVE [facility] Ordered by Maya Barron MD on [...] are final unless otherwise noted. Reported Physicians [facility] Ordered by Myaa Barron MD on 04/16/2020 Collected: 04/16/2020 Reported: 04/16/2020 22:47 Reported Physicians See Note None Note: Reported Physicians:Ordering: Jose E JoseodAttending: Jose E JoseodCopy To: Maya Barron Reviewed by Maya Barron MD on 04/17; All test results are final unless otherwise noted. CMP [facility] Ordered by Maya Barron MD on [...] are final unless otherwise noted. Reported Physicians [facility] Ordered by Maya Barron MD on 04/16/2020 Collected: 04/16/2020 Reported: 04/16/2020 22:44 Reported Physicians See Note None Note: Reported Physicians:Ordering: Jose E JoseodAttending: Damon, VinodCopy To: Maya Barron Reviewed by Maya Barron MD on 04/17; All test results are final unless otherwise noted. LIPASE [facility] Ordered by Maya Barron MD on 04/16/2020 Collected: 04/16/2020 Reported: 04/16/2020 22:44 Lipase SerPl-cCnc 107 enzyme_unit_per_liter (73-393) N (Normal) Note: Responsible Observer: Lipase Lipas e 400.2310 (G) Reviewed by Maya Barron MD on 04/17; All test results are final unless otherwise noted. Reported Physicians [facility] Ordered by Maya Barron MD on 04/16/2020 Collected: 04/16/2020 Reported: 04/16/2020 22:44 Reported Physicians See Note None Note: Reported Physicians:Ordering: Damno , VinodAttending: Damon, VinodCopy To: Maya Barron Reviewed by Maya Barron MD on 04/17; All test results are final unless otherwise noted. Type and Screen [facility] Ordered by Maya Barron MD on [...] are final unless otherwise noted. Reported Physicians [facility] Ordered by Maya Barron MD on 04/16/2020 Collected: 04/16/2020 Reported: 04/16/2020 23:09 Reported Physicians See Note None Note: Reported Physicians:Ordering: Jose E JoseodAttending: Jose E JoseodCopy To: Maya Barron Reviewed by Maya Barron MD on 04/17; All test results are final unless otherwise noted. CBC [facility] Ordered by Maya Barron MD on 04/10/2020 [address] [place], [address] Collected: 04/10/2020 Reported: 04/11/2020 11:35 tel : [...] test results are final unless otherwise noted. [facility] Ordered by Maya Barron MD on 04/10/[address] [place] [address], [facility] Collected: 04/10/2020 Reported: 04/11/2020 11:35 tel [...] by Maya Barron MD on 04/10/[address] [place] [address], [address] Collected: 04/10/2020 Reported: 04/11/2020 11:35 tel : ext. 1500 TSH 1.336 uIu/mL (0.5-5.8) None Note: Responsible Observer: AW Reviewed by Maya Barron MD on 04/12; All test results are final unless otherwise noted. [facility] Ordered by Maya Barron MD on 02/25/2020 Collected: 02/25/2020 Reported: 02/28/2020 15:53 C trach rRNA XXX Ql ТАТЬЯНА+probe See Note (NOT DETECTED) None Note: NOT DETECTEDNOT DETECTEDLNOT DETEC TEDNOT [id number] DETECTEDResponsible Observer: C.Trach RNA Chlamydia trachomatis DNA-ТАТЬЯНА 27904724 913.9900 ([facility]) N gonorrhoea rRNA XXX Ql ТАТЬЯНА+probe See Note (NOT DETECTED) None Note: NOT DETECTEDNOT DETECTEDLNOT DETEC TEDNOT [id number] DETECTEDResponsible Observer: GC RNA Neisseria gonorrhoeae DNA -ТАТЬЯНА [id number] 913.9905 ([facility]) Chlamydia/GC DNA Note SEE NOTE None Note: The analytical performance charact eristics of thisassay, when used to test SurePath(TM) specimens have beendetermined by [employer]. The modifications havenot been cleared or approved by the FDA. This assay hasbeen validated pursuant to the CLIA regulations and isused for clinical purposes.For additional information, please refer tohttps://[email or web address]/faq/KLE715(This link is being provided for information/educational purposes only.)THIS TEST WAS PERFORMED AT:[facility] [id number] BURGESSesponsible Observer: GC/Chlam Note Chlamydia/GC DNA Note [id number] 913.9907 (A) NOTES See Note None Note: Source Of Specimen: URINE Reviewed by Maya Barron MD on 02/28; All test results are final unless otherwise noted. Reported Physicians [facility] Ordered by Maya Barron MD on 02/25/2020 Collected: 02/25/2020 Reported: 02/28/2020 15:54 Reported Physicians See Note None Note: Reported Physicians:Ordering: Cara Alvarengaending: Maya Barron Reviewed by Maya Barron MD on 02/28; All test results are final unless otherwise noted. Urine culture-[facility] Ordered by Maya Barron MD on 02/25/2020 Collected: 02/25/2020 Reported: 02/26/2020 13:38 Urine culture result No growth None Reviewed by Maya Barron MD on 02/27; All test results are final unless otherwise noted. Reported Physicians [facility] Ordered by Maya Barron MD on 02/25/2020 Collected: 02/25/2020 Reported: 02/26/2020 13:39 Reported Physicians See Note None Note: Reported Physicians:Ordering: Cara Alvarengaending: Maya Barron Reviewed by Maya Barron MD on 02/27; All test results are final unless otherwise noted. Test Office Lab Ordered by Maya Barron MD on 02/25/2020 [address] [place], [address] Specimen Source: Urine Collected: 02/25/2020 Reporte d: 02/25/2020 11:15 tel: Urine HCG neg (negative) N (Normal) Reviewed by Maya Barron MD on 02/24; All test results are final unless otherwise noted. Urinalysis w/out microscopy Office Lab Ordered by Maya Barron MD on 02/25/2020 [address] [place], [address] Specimen Source: Urine Collected: 02/25/2020 Reporte d: 02/25/2020 11:02 tel:[phone] bilirubin neg (neg) N (Normal) blood neg [...] otherwise noted. UA W/ CULTURE IF ABNORMAL [facility] Ordered by Maya Barron MD on 01/29/2020 Collected: 01/29/2020 Reported: 01/29/2020 00:22 Urobilinogen Ur Ql See Note (0.2-1 EU/dl) None Note: 1 EU/dl1 EU/dlL1 EU/dl1 EU/[id number] [id number] EU/dlResponsible Observer: UROBILINOGEN UROBILINOGEN 300.4500 (C) RBC # Ur Strip NEGATIVE (NEGATIVE) None Note: Responsible Observer: BLOOD BLOOD 300.4652 (C) Prot Ur Ql Strip See Note (NEGATIVE) None Note: NEGATIVENEGATIVELNEGATIVENEGATIVEL [id number] Observer: PROTEIN PROTEIN 300.3750 (C) Ketones Ur Ql Strip See Note (NEGATIVE) None Note: 15 mg/dL15 mg/dLL15 mg/dL15 mg/dLL [id number] mg/dLResponsible Observer: KETONE KETONE 300.3900 (C) Bilirub Ur Ql Strip.auto See Note (NEGATIVE) None Note: NEGATIVENEGATIVELNEGATIVENEGATIVEL [id number] Observer: BILIRUBIN BILIRUBIN 300.4550 (C) Glucose Ur Strip.auto-mCnc NEGATIVE (NEGATIVE) None Note: Responsible Observer: GLUCOSE GLUC OSE 300.3850 (C) Appearance Ur See Note (CLEAR) None Note: CLEARCLEARLCLEARCLEARLCLEARRespons ible Observer: APPEARANCE APPEARANCE 300.3400 (A) Color Ur See Note None Note: YELLOWYELLOWLYELLOWYELLOWLYELLOWRe sponsible Observer: COLOR COLOR 300.3330 (A) Leukocyte esterase Ur Ql Strip See Note (NEGATIVE) None Note: NEGATIVENEGATIVELNEGATIVENEGATIVEL [id number] Observer: LEUKOCYTES LEUKOCYTES 300.3576 (C) Nitrite Ur Ql Strip See Note (NEGATIVE) None Note: NEGATIVENEGATIVELNEGATIVENEGATIVEL [id number] Observer: NITRITE NITRITE 300.3652 (B) pH Ur Strip 6.0 (5-8) None Note: Responsible Observer: PH PH 300.3 450 (C) Sp Gr Ur Refractometry 1.030 (1.005-1.030) None Note: Responsible Observer: SP GRAVITY U RINE SPECIFIC GRAVITY-MAN 300.3475 (C) URINE MICROSCOPIC? (CIF) NO None Note: Responsible Observer: UA URINE SHAWN ROSCOPIC PENDING 300.4665 (D) NOTES See Note None Note: Reason for ordering culture: Abnor mal findings UAMethod of Collection:: Voided Reviewed by Maya Barron MD on 01/30; All test results are final unless otherwise noted. Reported Physicians [facility] Ordered by Maya Barron MD on 01/29/2020 Collected: 01/29/2020 Reported: 01/29/2020 00:22 Reported Physicians See Note None Note: Reported Physicians:Ordering: Yoli NapolesAttending: Charles Silva To: Maya Barron Reviewed by Maya Barron MD on 01/30; All test results are final unless otherwise noted. BHCG,SERUM QUALITATIVE [facility] Ordered by Maya Barron MD on 01/28/2020 Collected: 01/28/2020 Reported: 01/28/2020 22:58 HCG SerPl-sCnc NEGATIVE (NEGATIVE) None Note: @Reenter manual test result: NEGAT LAYA@by Sybil Whatley at 01/28/20 2258.Responsible Observer: BHCG SERUM BHCG SERUM 800.0900 (A) NOTES See Note None Note: @ DID THE CONTROL BAND APPEAR? YES @ DID THE BACKGROUND CLEAR? YES Reviewed by Maya Barron MD on 01/30; All test results are final unless otherwise noted. Reported Physicians [facility] Ordered by Maya Barron MD on 01/28/2020 Collected: 01/28/2020 Reported: 01/28/2020 22:58 Reported Physicians See Note None Note: Reported Physicians:Ordering: Yoli NapolesAttending: Charles Silva To: Maya Barron Reviewed by Maya Barron MD on 01/30; All test results are final unless otherwise noted. CBC W AUTO DIFF [facility] Ordered by Maya Barron MD on 01/28/2020 Collected: 01/28/2020 Reported: 01/28/2020 22:42 MCV BldCo Auto 87.1 FemtoLiter_[SI_Volume_Units] (80-96) N (Normal) Note: Responsible Observer: MCV MCV 100 .0600 (B) RDW RBC Auto 12 percent (11-15) N (Normal) Note: Responsible Observer: RDW RDW 100 .0900 (B) Manual diff Bld NO None Note: Responsible Observer: CBC Manual D ifferential Added 100.1990 (B) PMV Bld 10.2 FemtoLiter_[SI_Volume_Units] (9.1-13.1) N (Normal) Note: Responsible Observer: MPV MPV 100 .1100 (B) Imm Granulocytes Bld Ql Auto See Note (0-2) N (Normal) Note: [id number] ible Observer: IG% IG% 100.1375 (B) Hct VFr Bld Auto 39.3 percent (37-47) N (Normal) Note: Responsible Observer: HEMATOCRIT H EMATOCRIT 100.0500 (B) MCHC BldCo-mCnc 33.6 GramsPerDeciLiter_[Mass_Concentration_Units] (33-37) N (Normal) Note: Responsible Observer: MCHC MCHC 1 00.0800 (B) Imm Granulocytes # Bld Auto 0.0 Unit (0-0.1) None Note: Responsible Observer: IG# IG# 100 .1400 (B) Monocytes/leuk NFr Bld Auto 9.1 percent (4-12) N (Normal) Note: Responsible Observer: MONO % MONO % 100.1225 (B) Hgb Bld-sCnc 13.2 GramsPerDeciLiter_[Mass_Concentration_Units] (10.7-15.4) N (Normal) Note: Responsible Observer: HGB HEMOGLOB IN 100.0400 (B) WBC # Bld Auto 5.9 ThousandsPerMicroLiter_[Number_Concentration_Units] (4.45-10 .71) N (Normal) Note: Responsible [...] H# 100.1200 (B) Lymphocytes/leuk NFr Bld Auto 24.6 percent (14-46) N (Normal) Note: Responsible Observer: LYMPH % LYMP H % 100.1175 (B) Monocytes # Bld Auto 0.5 Unit (0.2-1.2) N (Normal) Note: Responsible Observer: MONO # MONO# 100.1250 (C) Neutrophils # Bld Auto 3.9 Unit (1.7-7.6) N (Normal) Note: Responsible Observer: NEUT# NEUT# 100.1150 (B) Neutrophils/leuk NFr Bld Auto 65.6 percent (41-77) N (Normal) Note: Responsible Observer: NEUT% NEUT% 100.1125 (B) Platelet # Bld Auto 207 ThousandsPerMicroLiter_[Number_Concentration_Units] (130-472 ) N (Normal) Note: Responsible Observer: PLATELET COU NT PLATELET COUNT 100.1000 (D) MCH RBC Qn Auto 29.3 PicoGram_[SI_Mass_Units] (27-31) N (Normal) Note: Responsible Observer: MCH MCH 100 .0700 (B) RBC # Bld Auto 4.51 MillionsPerMicroLiter_[Number_Concentration_Units] (4.20-5.4 0) N (Normal) Note: Responsible Observer: RBC Red Bloo d Count 100.0300 (B) NUCLEATED RED BLOOD CELL# 0 Unit None Note: Responsible Observer: NRBC# NUCLEA VICTOR M RBC 100.1362 (A) NUCLEATED RED BLOOD CELL 0 percent None Note: Responsible Observer: NRBC% NRBC% 100.1360 (B) Reviewed by Maya Barron MD on 01/30; All test results are final unless otherwise noted. [facility] Ordered by Maya Barron MD on 01/28/2020 Collected: 01/28/2020 Reported: 01/28/2020 23:00 ALT SerPl w P-5'-P-cCnc 18 enzyme_unit_per_liter (10-49) [...] m 400.1100 (G) AST SerPl w P-5'-P-cCnc 14 enzyme_unit_per_liter (0-33) N (Normal) Note: Responsible Observer: SGOT / AST S GOT / AST 400.1900 (G) BUN SerPl-mCnc 10 MilliGramsPerDeciLiter_[Mass_Concentration_Units] (9-23) N (Normal) Note: Responsible Observer: BUN Blood Ur ea Nitrogen 400.1000 (G) Anion Gap SerPl-sCnc 10 MilliMolesPerLiter_[Substance_Concentration_Units] (8-16) N (Normal) Note: Responsible Observer: ANION GAP AN ION GAP 400.1402 (E) Albumin SerPl BCP-mCnc 4.1 GramsPerDeciLiter_[Mass_Concentration_Units] (3.2-4.8) N (Normal) Note: Responsible Observer: Albumin Albu min 400.2700 (G) ALP SerPl-cCnc 111 enzyme_unit_per_liter (45-129) N (Normal) Note: Responsible Observer: ALP Alkaline Phosphatase 400.2000 (G) Creatinine 0.7 MilliGramsPerDeciLiter_[Mass_Concentration_Units] (0.5-1.1) N (Normal) Note: Responsible Observer: Creatinine C reatinine 400.1600 (G) Reviewed by Maya Barron MD on 01/30; All test results are final unless otherwise noted. Reported Physicians [facility] Ordered by Maya Barron MD on 01/28/2020 Collected: 01/28/2020 Reported: 01/28/2020 23:00 Reported Physicians See Note None Note: Reported Physicians:Ordering: Yoli NapolesAttending: Charles Silva To: Maya Barron Reviewed by Maya Barron MD on 01/30; All test results are final unless otherwise noted. Urinalysis w/out microscopy Office Lab Ordered by Maya Barron MD on [address] [place] [address], [address] Specimen Source: Urine Collected: Reported: 2020 11:41 [...] Procedures and Surgical History Includes: Procedures from 01/17/2020 through 01/16/2021 Procedures Code Diagnosis Performing Provider Service Location Service Date REVISIT- office visit KAYLEIGH 27 weeks gestatio n of Maya Barron MD [facility], [facility] 12/26/2020 REVISIT- office visit KAYLEIGH 23 weeks gestatio n of Maya Barron MD [facility], [facility] 12/05/2020 REVISIT- office visit KAYLEIGH 22 weeks gestatio n of Maya Barron MD [facility], [facility] 11/28/2020 no charge procedure NC Tension-type headache, unspe cified, intractable Maya Barron MD [facility], [facility] 11/21/2020 REVISIT- office visit KAYLEIGH 21 weeks gestatio n of Maya Barron MD [facility], [facility] 11/21/2020 REVISIT- office visit KAYLEIGH 20 weeks gestatio n of Maya Barron MD [facility], [facility] 11/14/2020 no charge procedure NC Palpitations Maya Barron MD [facility], [facility] 11/03/2020 no charge procedure NC Palpitations Maya Barron MD [facility], [facility] 10/31/2020 REVISIT- office visit KAYLEIGH 18 weeks gestatio n of Maya Barron MD [facility], [facility] 10/31/2020 REVISIT- office visit KAYLEIGH 17 weeks gestatio n of Maya Barron MD [facility], [facility] 10/24/2020 no charge procedure NC Palpitations Maya Barron MD [facility], [facility] 10/17/2020 REVISIT- office visit KAYLEIGH 16 weeks gestatio n of Maya Barron MD [facility], [facility] 10/17/2020 Holter Monitor, Physician review & interpretation only 99893 Palpitations Michel Villalba MD [facility] 10/11/2020 REVISIT- office visit KAYLEIGH 15 weeks gestatio n of Maya Barron MD [facility], [facility] 10/11/2020 REVISIT- office visit KAYLEIGH 13 weeks gestatio n of Maya Barron MD [facility], [facility] 09/27/2020 REVISIT- office visit KAYLEIGH 12 weeks gestatio n of Maya Barron MD [facility], [facility] 09/19/2020 EKG- Electrocardiogram/12 lead 21986 Chest pain, unspe cified Cat Gutierrez RPA [facility], [facility] 09/11/2020 REVISIT- office visit KAYLEIGH 10 weeks gestatio n of Cat Gutierrez [facility], [facility] 09/05/2020 REVISIT- office visit KAYLEIGH 8 weeks gestation of Maya Barron MD [facility], [facility] 08/22/2020 Urinalysis w/o Microscopy (Distinct Seperate service-same da y) 90794 Frequency of micturition- Urinary Frequency Maya Barron MD [facility], [facility] 08/15/2020 RAPID STREP 84114 Acute pharyngitis, unspecified Maya Barron MD [facility], [facility] 08/15/2020 Initial Obstetrical Care Office Visit OB Le ss than 8 weeks gestation of Cat De Pazing [facility], [facility] 021 Urinalysis w/o Microscopy 40648 Frequency of micturiti on- Urinary Frequency Maya Barron MD [facility], [facility] 07/19/2020 REVISIT- office visit KAYLEIGH Threatened Alicja Barron MD [facility], [facility] 05/26/2020 NO CHARGE- Nurse visit- OB establish [employer] Thr eatened , state, incidental Maya Barron MD [facility], [facility] 020 General Health Panel( CMP, CBC, TSH) 36734 Dysmenorrhe a, unspecified Maya Barron MD [facility], [facility] 04/10/2020 Venipuncture (routine) 98713 Dysmenorrhea, unspecified Mariela Barron MD [facility], [facility] 04/10/2020 Brief Emotional Behavior Assessment ( add -59 mod) 57780 Screening for Mental Health/Behavioral Disorder, Unspecified Maya Barron MD [facility], [facility] 04/10/2020 Urine Test 11327 Pelvic and perineal pain, Frequency of micturition- Urinary Frequency Maya Barron MD [facility], [facility] 02/25/2020 Urinalysis w/o Microscopy 14721 Frequency of micturiti on- Urinary Frequency Maya Barron MD [facility], [facility] 02/25/2020 Surgical History Last Updated No [...] 2 01/16/2021 Left Deltoid Complete (A dministered) [facility] Varicella 1 04/18/2000 Complete (Reported) Patient Varicella 2 04/29/2016 Complete (Reported) Patient Allergies Includes: Active, inactive, and resolved Allergies Substance Type Reaction Onset Date - Time Resolved Date - Ti me Status Naproxen Allergy Skin Rashes 02/01/2020 - 12:00AM Act laya Encounters Includes: Encounters from 01/17/2020 through 01/16/2021 Encounter Provider Location Date Check-In Time Check-Out Time D iagnosis REVISIT- Routine (OB) Visit Maya Barron MD [facility], [facility] 01/16/2021 9:52AM 10:23AM Telehealth communication Maya Barron MD [facility], [facility] 01/09/2021 12/26/2020 10:00AM 10:27AM Generalized Anxiety Disorder, Chest Pain, Iron Deficiency Anemia, Upper Respiratory Infection REVISIT- Routine (OB) Visit Maya Barron MD [facility], [facility] 12/26/2020 9:45AM 10:08AM telephone conversation Michel Villalba MD 1 12/14/2020 9:13AM 12/14/2020 11:59PM Atypical Chest Pain telephone conversation Michel Villalba MD 1 12/14/2020 6:45PM 12/14/2020 11:59PM Hypotension telephone conversation Maya Barron MD [facility] 12/19/2020 12/14/2020 2:14PM 12/14/2020 11:59PM Fracture of Fifth Ce rvical Vertebral Body, History of Psychiatric Disorders, Reactive Airway Disease Problem visit - not contagious Bandar Cleveland PA-C [facility], [facility] 12/14/2020 2:08PM 2:52PM Tension-type Headach e REVISIT- Routine (OB) Visit Maya Barron MD [facility], [facility] 12/05/2020 11:17AM 12:08PM REVISIT- Routine (OB) Visit Maya Barron MD [facility], [facility] 11/28/2020 1:34PM 1:51PM Chronic Care Mgt - Office Visit Maya Barron MD [facility], [facility] 11/21/2020 2:10PM 2:35PM Fracture of Fift h Cervical Vertebral Body, History of Psychiatric Disorders, Reactive Airway Disease REVISIT- Routine (OB) Visit Maya Barron MD [facility], [facility] 11/21/2020 11:33AM 12:01PM REVISIT- Routine (OB) Visit Maya Barron MD [facility], [facility] 11/14/2020 9:55AM 10:36AM REVISIT- Routine (OB) Visit Maya Barron MD [facility], [facility] 11/07/2020 11:42AM 12:02PM OB- ILL VISIT Maya Barron MD [facility], [facility] 11/03/2020 3:45PM 4:29PM , Generalized Anxie ty Disorder, Panic Disorder, Chest Pain Chronic Care Mgt - Office Visit Maya Barron MD [facility], [facility] 11/03/2020 2:37PM 3:38PM Chronic Care Mgt - Office Visit Maya Barron MD [facility], [facility] 10/31/2020 3:23PM 3:24PM Fracture of Fift h Cervical Vertebral Body, History of Psychiatric Disorders, Reactive Airway Disease REVISIT- Routine (OB) Visit Maya Barron MD [facility], [facility] 10/31/2020 9:54AM 10:24AM Chronic Care Mgt - Office Visit Maya Barron MD [facility], [facility] 10/24/2020 2:16PM 11:59PM REVISIT- Routine (OB) Visit Maya Barron MD [facility], [facility] 10/24/2020 10:00AM 10:47AM REVISIT- Routine (OB) Visit Maya Barron MD [facility], [facility] 10/17/2020 11:24AM 12:12PM Chronic Care Mgt - Office Visit Maya Barron MD [facility], [facility] 10/17/2020 11:25AM 12:11PM Fracture of Fift h Cervical Vertebral Body, History of Psychiatric Disorders, Reactive Airway Disease REVISIT- Routine (OB) Visit Maya Barron MD [facility], [facility] 10/11/2020 9:44AM 10:15AM OB- ILL VISIT Maya Barron MD [facility], [facility] 10/04/2020 2:12PM 2:31PM Presyncope Syndrome, Tachyca rdia, Palpitations, Difficulty Breathing (Dyspnea), Weeks of Gestation - 14 REVISIT- Routine (OB) Visit Maya Barron MD [facility], [facility] 09/27/2020 1:36PM 1:59PM telephone conversation Michel Villalba MD 09/19/2020 9:43PM 09/19/2020 11:59PM Atypical Chest Pain REVISIT- Routine (OB) Visit Maya Barron MD [facility], [facility] 09/19/2020 9:48AM 10:14AM REVISIT- Routine (OB) Visit Cat Gutierrez [facility], [facility] 09/11/2020 3:22PM 4:16PM REVISIT- Routine (OB) Visit Cat Gutierrez [facility], [facility] 09/05/2020 9:37AM 10:00AM TCMNV phone call- NO CHARGE Cat Gutierrez [facility] 09/04/2020 09/05/2020 4:54PM 09/05/2020 11:59PM [Patient Encounter] Cat Gutierrez [facility] 08/31/2020 021 2:21PM 08/22/2020 11:59PM telephone conversation Michel Villalba MD 08/2808/22/2020 11:00AM 08/22/2020 11:59PM REVISIT- Routine (OB) Visit Maya Barron MD [facility] 08/22/2020 1:56PM 2:19PM sick visit Maya Barron MD [facility] 0 08/15/2020 9:36AM 10:12AM Upper Respiratory Infection Acute, Pollakiuria Obstetrics/ first visit Cat Gutierrez [facility] 08/09/2020 9:22AM 10:56AM followup Cat De Pazing [facility] 0 08/02/2020 10:18AM 11:42AM Generalized Anxiety Disorder , Early Stage, Abdominal Pain telephone conversation Michel Villalba MD 07/26/2020 7:59AM 07/26/2020 11:59PM [Patient Encounter] Cat De Pazing [facility] 07/28/2020 021 2:20PM 07/26/2020 11:59PM followup Maya Barron MD [facility] 0 07/26/2020 10:39AM 11:02AM , Generalized Anxie ty Disorder sick visit Bandar Cleveland PA-C [facility] 3:36PM 4:30PM Pyrexia followup Maya Barron MD [facility] 0 07/19/2020 10:52AM 11:30AM , Generalized Anxie ty Disorder, Pollakiuria followup Maya Barron MD [facility] 1 09/11/2019 10:43AM 11:14AM Atypical Chest Pain, Adjustm ent Disorder followup Maya Barron MD [facility] 1 08/07/2019 10:43AM 10:59AM Missed followup Maya Barron MD [facility] 05/26 1:45PM 2:11PM with Threatened Problem visit - not contagious Maya Barron MD [facility] 05/24/2020 11:13AM 12:00PM with T hreatened [Patient Encounter] Maya Barron MD 05/24/2020 020 10:17AM 04/19/2020 11:59PM followup Maya Barron MD [facility] 1 11:51AM 12:08PM ANNUAL PE-followup /30 Maya Barron MD [facility] 04/10/2020 8:42AM 9:13AM Routine History and Physical Adult (18 - 64 Yrs), Dysmenorrhea sick visit Maya Barron MD [facility] 0 03/06/2020 3:32PM 3:42PM Sinusitis sick visit Maya Barron MD [facility] 0 02/25/2020 10:46AM 11:12AM Pollakiuria, Female Pelvic P ain followup Maya Barron MD [facility] 01/31 2:25PM 2:51PM Back Strain Insurance Includes: Active Insurance Policies Plan Name Member ID Group # Subscriber Relationship Effective Da greg 1 - MANAGED MEDICAID [facility] [id number] Georgiana Nguyen 07/14/2020 - Unknown Advance Directives Includes: Current Advance DirectivesNo Advance Directives Recorded Health Concerns Includes: Active Health ConcernsNo Active Health Concerns Recorded Goals Includes: Active GoalsNo Active Goals Recorded Interventions Includes: Interventions for active GoalsNo Interventions Recorded Evaluations & Outcomes Includes: Evaluations & Outcomes for active GoalsNo Outcomes Recorded
--- OUTSIDE RECORDS SUMMARY | 2021-04-29 16:47 | CCD ---
Author Author [facility] Organization [facility] Address [address] [place] [address] Phone Care Team Providers Care Director Compliance Name Role Phone Anderson GILL, Maya Duke PP [phone] Kimberly White DPM Unavailable Unavailable Reason for [...] Time Location Provider REVISIT- Routine (OB) [facility] 01/30/2021 10:00AM [facility] SOLE Barron MD REVISIT- Routine (OB) Visit 02/06/2021 10:00AM [facility], SOLE Barron MD followup 02/13/2021 10:00AM [facility], SOLE Barron MD REVISIT- Routine (OB) Visit 02/20[facility]20[facility] Visit 02/27/2021 10:00AM [facility], SOLE Gutierrez RPA REVISIT- Routine (OB) Visit 03/06[facility]2021 [facility]ine (OB[facility] Visit 03/13[facility] (OB[facility] Visit 03/20/2021 [facility] Routine (OB) Visit 03/27[facility] Findings Encounter Date Community resources No [...] 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[facility], [facility] on health maintenance [Encounter for general adult medical examination with abnormal findings] ANNUAL PE-followup exam/30 with Maya Barron MD 04/07/2019 Vaginal candidiasis sick visit with [facility] 02/11 Pharyngitis urgent visit with Bandar Cleveland PA-C 2018 Sprained ribs ; left sick visit with [facility] Strain of muscle and tendon of front wall of thorax si ck visit with [facility] 10/30/2018 Fracture of fifth cervical vertebral body No Fault with [facility] 03/04/2018 Late effects of accident No Fault with [facility] 0 03/04/2018 Instructions Instructions not supported [...] PO BID HM Vitamin D3 50 MCG (1999 UT) Oral Capsule 11/20/2020 Provider: Maya Barron [...] Solution 09/05/2020 - 11/04/2020 Provider: Cat Gutierrez [facility] Diagnosis: Other asthma- reacti ve airway disease 2 puffs q4hr prn Monistat 7 Combo Pack Chava 100 & 2 MG-% (9GM) Vaginal K it 08/31/2020 - 09/07/2020 Provider: Cat Gutierrez [facility] Diagnosis: as directed - Insert 1 [...] Recorded Vital Signs Includes: Vital Signs from 01/10/2020 through 01/09/2021 Vital Name 12/26/2020 09:58A 12/14/2020 02:15P 12/05/2020 [...] Body Surface Area (m2) 1.57 1. 55 Vital Name 03/06/2020 03:38P 02/25/2020 10:59A 02/01/2020 02:38P Pulse Rate-Sitting (bpm) 102 72 88 Respiration Rate (breaths/min) 20 20 Oxygen Saturation (%) 97 Pain Level 6 Results Includes: Results from 01/10/2020 through 01/09/2021 UA W/ CULTURE IF ABNORMAL [facility] Ordered by Maya Barron MD on 12/28/2020 Collected: 12/28/2020 Reported: 12/28/2020 21:56 Urobilinogen Ur Ql See Note (0.2-1 EU/dl) None Note: 0.2 EU/dl0.2 EU/[id number] E U/dlResponsible Observer: UROBILINOGEN UROBILINOGEN 300.4500 (C) RBC # Ur Strip NEGATIVE (NEGATIVE) None Note: Responsible Observer: BLOOD BLOOD 300.4652 (C) Prot Ur Ql Strip See Note (NEGATIVE) None Note: [id number] EResponsible Observer: PROTEIN PROTEIN 300.3750 (C) Ketones Ur Ql Strip See Note (NEGATIVE) None Note: [id number] EResponsible Observer: KETONE KETONE 300.3900 (C) Bilirub Ur Ql Strip.auto See Note (NEGATIVE) None Note: [id number] EResponsible Observer: BILIRUBIN BILIRUBIN 300.4550 (C) Glucose Ur Strip.auto-mCnc 250 mg/dl (NEGATIVE) None Note: Responsible Observer: GLUCOSE GLUC OSE 300.3850 (C) Appearance Ur See Note (CLEAR) A (Abnormal) Note: TURBIDTURBIDLTURBIDResponsible Obs erver: APPEARANCE APPEARANCE 300.3400 (A) Color Ur See Note None Note: YELLOWYELLOWLYELLOWResponsible Obs erver: COLOR COLOR 300.3330 (A) Leukocyte esterase Ur Ql Strip See Note (NEGATIVE) None Note: [id number]@DO MICR O!!!!A Culture has been added to this specimen per established criteriaResponsible Observer: LEUKOCYTES LEUKOCYTES 300.3576 (C) Nitrite Ur Ql Strip See Note (NEGATIVE) None Note: [id number] EResponsible Observer: NITRITE NITRITE 300.3652 (B) pH [...] are final unless otherwise noted. Urine culture [facility] Ordered by Maya Barron MD on 12/28/2020 Collected: 12/28/2020 Reported: 12/30/2020 08:03 Urine culture result 25,000 CFU/ML Lactobacilli no senst done None NOTES See Note None Note: @12/28/202155: Urine culture flavia sawyer RFLXG = CULT.ADD. Reviewed by Maya Barron MD on 01/01; All test results are final unless otherwise noted. Reported Physicians [facility] Ordered by Maya Barron MD on 12/28/2020 Collected: 12/28/2020 Reported: 12/30/2020 08:03 Reported Physicians See Note None Note: Reported Physicians:Ordering: Sana Recinosending: Sammie Ann To: Maya Barron Reviewed by Maya Barron MD on 01/01; All test results are final unless otherwise noted. ADD ON MICROSCOPIC [facility] Ordered by Maya Barron MD [...] Ql Micro Amorph Sed UrnS Ql Micro [id number] Amorph Sed UrnS Ql Micro Amorph Sed UrnS Ql Micro LARGE AMT URATES Bacteria UrnS Ql Micro SMALL AMOUNT Bacteria UrnS Ql Micro SMALL AMOUNT Bacteria UrnS Ql Micro L Bacteria UrnS Ql Micro Bacteria UrnS Ql Micro Bacteria UrnS Ql Micro Bacteria UrnS Ql Micro [id number] Bacteria UrnS Ql Micro Bacteria UrnS Ql [...] are final unless otherwise noted. Reported Physicians [facility] Ordered by Maya Barron MD on 12/28/2020 Collected: 12/28/2020 Reported: 12/28/2020 21:56 Reported Physicians See Note None Note: Reported Physicians:Ordering: Sana Recinosending: Sammie Ann To: Maya Barron Reviewed by Maya Barron MD on 01/01; All test results are final unless otherwise noted. Cepheid SARS/FLU/RSV RT-PCR [facility] Ordered by Maya Barron MD [...] by FDA under an EUA for [facility] [id number]-cqt CoV RNA Resp Ql ТАТЬЯНА+yubqxFZXSCIWHVFH-JTZ-3 NOT [id number]-TPU-4 NOT [id number] RNA Resp Ql ТАТЬЯНА+probeLNNFLUAInfluenza A Not Det [id number] A Not Mccsqxav10336-6HCCKJ RNA Resp Ql ТАТЬЯНА+probeLNNINBInfluenza B Not [id number] B Not Tuphvjjv61443- 2RSV RNA Resp Ql ТАТЬЯНА+probeLNNRSVRSV Not [id number] Not Detected Reviewed by Maya Barron MD on 01/01; All test results are final unless otherwise noted. Reported Physicians [facility] Ordered by Maya Barron MD on 12/28/2020 Collected: 12/28/2020 Reported: 12/28/2020 22:13 Reported Physicians See Note None Note: Reported Physicians:Ordering: Sana Recinosending: Norman Annopy To: Maya Barron Reviewed by Maya Barron MD on 01/01; All test results are final unless otherwise noted. CBC W AUTO DIFF [facility] Ordered by Maya Barron MD [...] Auto See Note (0-2) N (Normal) Note: [id number] Ob counter server: IG% IG% 100.1375 (B) Hct VFr [...] test results are final unless otherwise noted. [facility] Ordered by Maya Barron MD on [...] test results are final unless otherwise noted. [facility] Ordered by Maya Barron MD on 12/28/2020 Collected: 12/28/2020 Reported: 12/28/2020 21:08 Lactic w Rfx (if elevated) 1.5 MilliMolesPerLiter_[Substance_Concentration_Units] (0.5-2.0) N (Normal) Note: Responsible Observer: Lactic Acid Lactic Acid 400.2831 (G) Reviewed by Maya Barron MD on 01/03; All test results are final unless otherwise noted. Blood Culture (Incl Anaerobic)-1 [facility] ab Ordered by Maya Barron MD on 12/28/2020 Collected: 12/28/2020 Reported: 01/02/2021 20:38 Bacteria Bld Cult See Note None Note: NG5DNo growth.O3OH2NII GROWTH AFTE R 5 DAYS Reviewed by Maya Barron MD on 01/03; All test results are final unless otherwise noted. Blood Culture (Incl Anaerobic)-2 [facility] ab Ordered by Maya Barron MD on 12/28/2020 Collected: 12/28/2020 Reported: 01/02/2021 20:38 Bacteria Bld Cult See Note None Note: NG5DNo growth.Z2CS8LZX GROWTH AFTE R 5 DAYS Reviewed by Maya Barron MD on 01/03; All test results are final unless otherwise noted. Reported Physicians [facility] Ordered by Maya Barron MD on 12/28/2020 Collected: 12/28/2020 Reported: 01/02/2021 20:38 Reported Physicians See Note None Note: Reported Physicians:Ordering: Sana Recinosending: Sammie Ann To: Maya Barron Reviewed by Maya Barron MD on 01/03; All test results are final unless otherwise noted. TROPONIN T [facility] Ordered by Maya Barron MD on 12/28/2020 Collected: 12/28/2020 Reported: 12/28/2020 04:05 TROPONIN T <0.01 NG/ML (0.00 - 0.10) None Note: TROPONIN T0.1 ng/ml Recommended as the clinical threshold value forTroponin T.Responsible Observer: (MLE) Reviewed by Maya Barron MD on 12/29; All test results are final unless otherwise noted. Reported Physicians [facility] Ordered by Maya Barron MD on 12/28/2020 Collected: 12/28/2020 Reported: 12/28/2020 04:05 Reported Physicians See Note None Note: Reported Physicians:Ordering: TURR IN, RICCARDOAttending: TURRIN, RICCARDOConsulting: Rubén BARRON To: TURRIN, RICCARDOCopy To: TURRIN, JESSEE Reviewed by Maya Barron MD on 12/29; All test results are final unless otherwise noted. LIPASE SERUM [facility] Ordered by Maya Barron MD on 12/28/2020 Collected: 12/28/2020 Reported: 12/28/2020 04:05 LIPASE 33 U/L (13 - 60) None Note: Responsible Observer: (MLE) Reviewed by Maya Barron MD on 12/29; All test results are final unless otherwise noted. Reported Physicians [facility] Ordered by Maya Barron MD on 12/28/2020 Collected: 12/28/2020 Reported: 12/28/2020 04:06 Reported Physicians See Note None Note: Reported Physicians:Ordering: TURR IN, RICCARDOAttending: TURRIN, RICCARDOConsulting: Rubén BARRON To: TURRIN, RICCARDOCopy To: TURRIN, JESSEE Reviewed by Maya Barron MD on 12/29; All test results are final unless otherwise noted. D-DIMER [facility] Ordered by Maya Barron MD on 12/28/2020 Collected: 12/28/2020 Reported: 12/28/2020 03:46 D-DIMER QUANT 0.36 ug/mL (0.27 - 0.50) None Note: Responsible Observer: (LBS) Reviewed by Maya Barron MD on 12/29; All test results are final unless otherwise noted. Reported Physicians [facility] Ordered by Maya Barron MD on 12/28/2020 Collected: 12/28/2020 Reported: 12/28/2020 03:46 Reported Physicians See Note None Note: Reported Physicians:Ordering: TURR IN, RICCARDOAttending: ROBERTO, RICCARDOConsulting: Rubén BARRON To: HOLLYRIN, RICCARDOCopy To: ROBERTO JESSEE Reviewed by Maya Barrno MD on 12/29; All test results are final unless otherwise noted. PT/PTT [facility] Ordered by Maya Barron MD on [...] Thrombosis, Pulmonary Embolus, Tissue heart valves, Acute DC Atrial Fibrillation, Valvular heart disease and recurrent Systemic Embolism. - International Normalized Ratio (INR): 2.5 - 3.5 for Mechanical Prosthetic valve.Responsible Observer: (LBS) Reviewed by Maya Barron MD on 12/29; All test results are final unless otherwise noted. Reported Physicians [facility] Ordered by Maya Barron MD on 12/28/2020 Collected: 12/28/2020 Reported: 12/28/2020 03:46 Reported Physicians See Note None Note: Reported Physicians:Ordering: TURR IN, RICCARDOAttending: ROBERTO, RICCARDOConsulting: Rubén BARRON To: RBOERTO, RICCARDOCopy To: JESSEE MEJIA Reviewed by Maya Barron MD on 12/29; All test results are final unless otherwise noted. CBC W/AUTOMATED DIFF [facility] Ordered by Maya Barron MD on [...] final unless otherwise noted. Reported Physicians [facility] Ordered by Maya Barron MD on 12/28/2020 Collected: 12/28/2020 Reported: 12/28/2020 03:34 Reported Physicians See Note None Note: Reported Physicians:Ordering: MARCELINO IN, RICCARDOAttending: JESSEE MEJIAConsulting: Rubén BARRON To: ARIA MEJIACARDOCopy To: JESSEE MEJIA Reviewed by Maya Barron MD on 12/29; All test results are final unless otherwise noted. COMPREHENSIVE METABOLIC PANEL [facility] ab Ordered by Maya Barron MD [...] final unless otherwise noted. Reported Physicians [facility] Ordered by Maya Barron MD on 12/28/2020 Collected: 12/28/2020 Reported: 12/28/2020 04:05 Reported Physicians See Note None Note: Reported Physicians:Ordering: TURR IN, RICCARDOAttending: TURRIN, RICCARDOConsulting: Rubén BARRON To: TURRIN, RICCARDOCopy To: ROBERTO JESSEE Reviewed by Maya Barron MD on 12/29; All test results are final unless otherwise noted. Cepheid SARS/FLU/RSV RT-PCR [facility] Ordered by Maya Barron MD [...] by FDA under an EUA for [facility] [id number]-ckt CoV RNA Resp Ql ТАТЬЯНА+lyoawXMFZSEMCENK-KMF-2 NOT [id number]-SOH-1 NOT QHPPQLEV87399-3YIOBC RNA Resp Ql ТАТЬЯНА+probeLNNFLUAInfluenza A Not Det [id number] A Not Mwvhcjvt85318-7UQLBL RNA Resp Ql ТАТЬЯНА+probeLNNINBInfluenza B Not CvglhpsyG1056806892Dkoleseel B Not Ngevvwqj46270- 2RSV RNA Resp Ql ТАТЬЯНА+probeLNNRSVRSV Not [id number] Not Detected Reviewed by Maya Barron MD on 12/25; All test results are final unless otherwise noted. Reported Physicians [facility] Ordered by Maya Barron MD on 12/23/2020 Collected: 12/23/2020 Reported: 12/23/2020 13:41 Reported Physicians See Note None Note: Reported Physicians:Ordering: Cristino FerreiraAttending: Cristino RivasCopy To: Maya Barron Reviewed by Maya Barron MD on 12/25; All test results are final unless otherwise noted. ADD ON MICROSCOPIC [facility] Ordered by Maya Barron MD on 12/23/2020 Collected: 12/23/2020 Reported: 12/23/2020 08:51 ADD ON MICROSCOPIC See Note (0-5) None Note: NOTES OTHER/NOT INTERPRETED Bacteria UrnS Ql Micro MODERATE AMOUNT Bacteria UrnS Ql Micro MODERATE AMOUNT Bacteria UrnS Ql Micro L Bacteria UrnS Ql Micro Bacteria UrnS Ql Micro Bacteria UrnS Ql Micro Bacteria UrnS Ql Micro [id number] Bacteria UrnS Ql Micro Bacteria UrnS Ql [...] are final unless otherwise noted. Reported Physicians [facility] Ordered by Maya Barron MD on 12/23/2020 Collected: 12/23/2020 Reported: 12/23/2020 08:52 Reported Physicians See Note None Note: Reported Physicians:Ordering: Cristino FerreiraAttending: Cristino RivasCopyifan To: Maay Barron Reviewed by Maya aBrron MD on 12/25; All test results are final unless otherwise noted. UA W/ CULTURE IF ABNORMAL [facility] Ordered by Maya Barron MD on 12/23/2020 Collected: 12/23/2020 Reported: 12/23/2020 08:51 Urobilinogen Ur Ql See Note (0.2-1 EU/dl) None Note: 1 EU/dl1 EU/[id number] EU/dlRe sponsible Observer: UROBILINOGEN UROBILINOGEN 300.4500 (C) RBC # Ur Strip NEGATIVE (NEGATIVE) None Note: Responsible Observer: BLOOD BLOOD 300.4652 (C) Prot Ur Ql Strip See Note (NEGATIVE) None Note: [id number] ble Observer: PROTEIN PROTEIN 300.3750 (C) Ketones Ur Ql Strip See Note (NEGATIVE) None Note: [id number] EResponsible Observer: KETONE KETONE 300.3900 (C) Bilirub Ur Ql Strip.auto See Note (NEGATIVE) None Note: [id number] EResponsible Observer: BILIRUBIN BILIRUBIN 300.4550 (C) Glucose Ur Strip.auto-mCnc NEGATIVE (NEGATIVE) None Note: Responsible Observer: GLUCOSE GLUC OSE 300.3850 (C) Appearance Ur See Note (CLEAR) A (Abnormal) Note: TURBIDTURBIDLTURBIDResponsible Obs erver: APPEARANCE APPEARANCE 300.3400 (A) Color Ur See Note None Note: YELLOWYELLOWLYELLOWResponsible Obs erver: COLOR COLOR 300.3330 (A) Leukocyte esterase Ur Ql Strip See Note (NEGATIVE) None Note: [id number]@DO MICR O!!!!A Culture has been added to this specimen per established criteriaResponsible Observer: LEUKOCYTES LEUKOCYTES 300.3576 (C) Nitrite Ur Ql Strip See Note (NEGATIVE) None Note: [id number] EResponsible Observer: NITRITE NITRITE 300.3652 (B) pH [...] are final unless otherwise noted. Urine culture [facility] Ordered by Maya Barron MD [...] are final unless otherwise noted. Reported Physicians [facility] Ordered by Maya Barron MD on 12/23/2020 Collected: 12/23/2020 Reported: 12/24/2020 10:07 Reported Physicians See Note None Note: Reported Physicians:Ordering: Aj Ferreiraending: Jos Rivas To: Maya Barron Reviewed by Maya Barron MD on 12/25; All test results are final unless otherwise noted. TROPONIN [facility] Ordered by Maya Barron MD on 12/23/2020 Collected: 12/23/2020 Reported: 12/23/2020 09:39 Troponin I SerPl-mCnc Less Than 0.015 (0.00-0.09) N (Normal) Note: Less than 0.09 NG/ML Negative 0.10 - 0.77 NG/ML High Risk0.78 NG/ML or Greater PositiveThe WHO defined the cutoff (definition for diagnosis of DC)for this method as 0.78 ng/ml.Responsible Observer: Troponin I Troponin I 600.1101 (G) NOTES See Note None Note: ADD-ON Reviewed by Maya Barron MD on 12/25; All test results are final unless otherwise noted. Reported Physicians [facility] Ordered by Maya Barron MD on 12/23/2020 Collected: 12/23/2020 Reported: 12/23/2020 09:39 Reported Physicians See Note None Note: Reported Physicians:Ordering: Aj Ferreiraending: Jos Rivas To: Maya Barron Reviewed by Maya Barron MD on 12/25; All test results are final unless otherwise noted. CBC W AUTO DIFF [facility] Ordered by Maya Barron MD [...] Auto See Note (0-2) N (Normal) Note: 0.60.1Y01050368498.6Responsible Ob counter server: IG% IG% 100.1375 (B) Hct VFr [...] test results are final unless otherwise noted. [facility] Ordered by Maya Barron MD on [...] are final unless otherwise noted. Reported Physicians [facility] Ordered by Maya Barron MD on 12/23/2020 Collected: 12/23/2020 Reported: 12/23/2020 08:29 Reported Physicians See Note None Note: Reported Physicians:Ordering: Shilpa Ferreira: Jos Rivas To: Maya Barron Reviewed by Maya Barron MD on 12/25; All test results are final unless otherwise noted. D-DIMER [facility] Ordered by Maya Barron MD [...] are final unless otherwise noted. Reported Physicians [facility] Ordered by Maya Barron MD on 12/23/2020 Collected: 12/23/2020 Reported: 12/23/2020 09:39 Reported Physicians See Note None Note: Reported Physicians:Ordering: Aj Ferreiraending: Jos Rivas To: Maya Barron Reviewed by Maya Barron MD on 12/25; All test results are final unless otherwise noted. MAGNESIUM [facility] Ordered by Maya Barron MD on 12/23/2020 Collected: 12/23/2020 Reported: 12/23/2020 09:11 Magnesium SerPl-mCnc 2.1 MilliGramsPerDeciLiter_[Mass_Concentration_Units] (1.3-2.7) N (Normal) Note: Responsible Observer: Magnesium Ma gnesium 400.3300 (G) NOTES See Note None Note: ADD-ON Reviewed by Maya Barron MD on 12/25; All test results are final unless otherwise noted. Reported Physicians [facility] Ordered by Maya Barron MD on 12/23/2020 Collected: 12/23/2020 Reported: 12/23/2020 09:11 Reported Physicians See Note None Note: Reported Physicians:Ordering: Cristino FerreiraAttending: Jos Rivas To: Maya Barron Reviewed by Maya Barron MD on 12/25; All test results are final unless otherwise noted. TROPONIN T [facility] Ordered by Maya Barron MD on 12/16/2020 Collected: 12/16/2020 Reported: 12/16/2020 16:30 TROPONIN T <0.01 NG/ML (0.00 - 0.10) None Note: TROPONIN T0.1 ng/ml Recommended as the clinical threshold value forTroponin T.Responsible Observer: (DW) Reviewed by Maya Barron MD on 12/18; All test results are final unless otherwise noted. Reported Physicians [facility] Ordered by Maya Barron MD on 12/16/2020 Collected: 12/16/2020 Reported: 12/16/2020 16:30 Reported Physicians See Note None Note: Reported Physicians:Ordering: VENUS ALONSOAttending: ALLYN PAPPASConsulting: Rubén BARRON To: Miguel Gonsalez To: ALLYN PAPPAS Reviewed by Maya Barron MD on 12/18; All test results are final unless otherwise noted. LIPASE SERUM [facility] Ordered by Maya Barron MD on 12/16/2020 Collected: 12/16/2020 Reported: 12/16/2020 16:29 LIPASE 27 U/L (13 - 60) None Note: Responsible Observer: (DW) Reviewed by Maya Barron MD on 12/18; All test results are final unless otherwise noted. Reported Physicians [facility] Ordered by Maya Barron MD on 12/16/2020 Collected: 12/16/2020 Reported: 12/16/2020 16:29 Reported Physicians See Note None Note: Reported Physicians:Ordering: VENUS ALONSOAttending: ALLYN PAPPASConsulting: Rubén BARRON To: Miguel Gonsalez To: ALLYN PAPPAS Reviewed by Maya Barron MD on 12/18; All test results are final unless otherwise noted. PT/PTT [facility] Ordered by Maya Barron MD on [...] Thrombosis, Pulmonary Embolus, Tissue heart valves, Acute DC Atrial Fibrillation, Valvular heart disease and recurrent Systemic Embolism. - International Normalized Ratio (INR): 2.5 - 3.5 for Mechanical Prosthetic valve.Responsible Observer: (ABIOLA) Reviewed by Maya Barron MD on 12/18; All test results are final unless otherwise noted. Reported Physicians [facility] Ordered by Maya Barron MD on 12/16/2020 Collected: 12/16/2020 Reported: 12/16/2020 16:30 Reported Physicians See Note None Note: Reported Physicians:Ordering: VENUS ALONSOAttending: ALLYN PAPPASConsulting: Rubén BARRON To: Miguel Gonsalez To: ALLYN PAPPAS Reviewed by Maya Barron MD on 12/18; All test results are final unless otherwise noted. CBC W/AUTOMATED DIFF [facility] Ordered by Maya Barron MD on [...] final unless otherwise noted. Reported Physicians [facility] Ordered by Maya Barron MD on 12/16/2020 Collected: 12/16/2020 Reported: 12/16/2020 16:00 Reported Physicians See Note None Note: Reported Physicians:Ordering: Sunshine ALONSOending: ALLYN PAPPASConsulting: Rubén BARRON To: Miguel Gonsalez To: ALLYN PAPPAS Reviewed by Maya Barron MD on 12/18; All test results are final unless otherwise noted. COMPREHENSIVE METABOLIC PANEL [facility] Ordered by Maya Barron MD [...] final unless otherwise noted. Reported Physicians [facility] Ordered by Maya Barron MD on 12/16/2020 Collected: 12/16/2020 Reported: 12/16/2020 16:30 Reported Physicians See Note None Note: Reported Physicians:Ordering: VENUS ALONSOAttcheco: Remy PAPPASing: Rubén BARRON To: Miguel Gonsalez To: ALLYN PAPPAS Reviewed by Maya Barron MD on 12/18; All test results are final unless otherwise noted. TSH HIGHLY SENSITIVE [facility] Ordered by Maya Barron MD on 12/16/2020 Collected: 12/16/2020 Reported: 12/16/2020 17:28 TSH 1.41 uIU/mL (0.47 - 5.01) None Note: Responsible Observer: (DW) Reviewed by Maya Barron MD on 12/18; All test results are final unless otherwise noted. Reported Physicians [facility] Ordered by Maya Barron MD on 12/16/2020 Collected: 12/16/2020 Reported: 12/16/2020 17:28 Reported Physicians See Note None Note: Reported Physicians:Ordering: VENUS ALONSOAttending: ALLYN PAPPASConopaling: Rubén BARRON To: Miguel Gonsalez To: ALLYN PAPPAS Reviewed by Maya Barron MD on 12/18; All test results are final unless otherwise noted. TROPONIN [facility] Ordered by Maya Barron MD on 12/13/2020 Collected: 12/13/2020 Reported: 12/13/2020 19:02 Troponin I SerPl-mCnc Less Than 0.015 (0.00-0.09) N (Normal) Note: Less than 0.09 NG/ML Negative 0.10 - 0.77 NG/ML High Risk0.78 NG/ML or Greater PositiveThe WHO defined the cutoff (definition for diagnosis of DC)for this method as 0.78 ng/ml.Responsible Observer: Troponin I Troponin I 600.1101 (G) Reviewed by Maya Barron MD on 12/15; All test results are final unless otherwise noted. Reported Physicians [facility] Ordered by Maya Barron MD on 12/13/2020 Collected: 12/13/2020 Reported: 12/13/2020 19:02 Reported Physicians See Note None Note: Reported Physicians:Ordering: Conchis Omerending: Kevin Orozco To: Maya Barron Reviewed by Maya Barron MD on 12/15; All test results are final unless otherwise noted. CBC W AUTO DIFF [facility] Ordered by Maya Barron MD [...] Auto See Note (0-2) N (Normal) Note: [id number] Ob counter server: IG% IG% 100.1375 (B) Hct VFr [...] results are final unless otherwise noted. PT/PTT [facility] Ordered by Maya Barron MD [...] results are final unless otherwise noted. CMP [facility] Ordered by Maya Barron MD [...] are final unless otherwise noted. Reported Physicians [facility] Ordered by Maya Barron MD on 12/13/2020 Collected: 12/13/2020 Reported: 12/13/2020 19:02 Reported Physicians See Note None Note: Reported Physicians:Ordering: Conchis Omerending: Kevin Orozco To: Maya Barron Reviewed by Maya Barron MD on 12/15; All test results are final unless otherwise noted. TSH [facility] Ordered by Maya Barrno MD on 12/13/2020 Collected: 12/13/2020 Reported: 12/13/2020 19:02 TSH SerPl DL<=0.005 mIU/L-aCnc 1.02 MicroInternationalUnitsPerMilliLiter_[Arbitrary_Con (0.35-5. 50) N (Normal) Note: Responsible Observer: TSH TSH 600 .7055 (D) Reviewed by Maya Barron MD on 12/15; All test results are final unless otherwise noted. Reported Physicians [facility] Ordered by Maya Barron MD on 12/13/2020 Collected: 12/13/2020 Reported: 12/13/2020 19:02 Reported Physicians See Note None Note: Reported Physicians:Ordering: Edgar Omerttending: Kevin Orozco To: Maya Barron Reviewed by Maya Barron MD on 12/15; All test results are final unless otherwise noted. ADD ON MICROSCOPIC [facility] Ordered by Maya Barron MD on 12/13/2020 Collected: 12/13/2020 Reported: 12/13/2020 18:32 ADD ON MICROSCOPIC See Note (0-5) None Note: NOTES OTHER/NOT INTERPRETED Bacteria UrnS Ql Micro MODERATE AMOUNT Bacteria UrnS Ql Micro MODERATE AMOUNT Bacteria UrnS Ql Micro L Bacteria UrnS Ql Micro Bacteria UrnS Ql Micro Bacteria UrnS Ql Micro Bacteria UrnS Ql Micro [id number] Bacteria UrnS Ql Micro Bacteria UrnS Ql [...] are final unless otherwise noted. Reported Physicians [facility] Ordered by Maya Barron MD on 12/13/2020 Collected: 12/13/2020 Reported: 12/13/2020 18:33 Reported Physicians See Note None Note: Reported Physicians:Ordering: Conchis Omerending: Kevin Orozco To: Maya Barron Reviewed by Maya Barron MD on 12/15; All test results are final unless otherwise noted. UA W/ CULTURE IF ABNORMAL [facility] Ordered by Maya Barron MD on 12/13/2020 Collected: 12/13/2020 Reported: 12/13/2020 18:32 Urobilinogen Ur Ql See Note (0.2-1 EU/dl) None Note: 0.2 EU/dl0.2 EU/[id number] E U/dlResponsible Observer: UROBILINOGEN UROBILINOGEN 300.4500 (C) RBC # Ur Strip NEGATIVE (NEGATIVE) None Note: Responsible Observer: BLOOD BLOOD 300.4652 (C) Prot Ur Ql Strip See Note (NEGATIVE) None Note: [id number] EResponsible Observer: PROTEIN PROTEIN 300.3750 (C) Ketones Ur Ql Strip See Note (NEGATIVE) None Note: [id number] EResponsible Observer: KETONE KETONE 300.3900 (C) Bilirub Ur Ql Strip.auto See Note (NEGATIVE) None Note: [id number] EResponsible Observer: BILIRUBIN BILIRUBIN 300.4550 (C) Glucose Ur Strip.auto-mCnc NEGATIVE (NEGATIVE) None Note: Responsible Observer: GLUCOSE GLUC OSE 300.3850 (C) Appearance Ur See Note (CLEAR) None Note: CLEARCLEARLCLEARResponsible Observ er: APPEARANCE APPEARANCE 300.3400 (A) Color Ur See Note None Note: YELLOWYELLOWLYELLOWResponsible Obs erver: COLOR COLOR 300.3330 (A) Leukocyte esterase Ur Ql Strip See Note (NEGATIVE) None Note: [id number]@DO MICR O!!!!A Culture has been added to this specimen per established criteriaResponsible Observer: LEUKOCYTES LEUKOCYTES 300.3576 (C) Nitrite Ur Ql Strip See Note (NEGATIVE) None Note: [id number] EResponsible Observer: NITRITE NITRITE 300.3652 (B) pH [...] are final unless otherwise noted. Urine culture [facility] Ordered by Maya Barron MD on 12/13/2020 Collected: 12/13/2020 Reported: 12/14/2020 13:24 Bacteria Ur Cult See Note None Note: NGNo growth.L1NG NOTES See Note None Note: @12/13/20 1832: Urine culture adde d. RFLXG = CULT.ADD. Reviewed by Maya Barron MD on 12/15; All test results are final unless otherwise noted. Reported Physicians [facility] Ordered by Maya Barron MD on 12/13/2020 Collected: 12/13/2020 Reported: 12/14/2020 13:24 Reported Physicians See Note None Note: Reported Physicians:Ordering: Conchis Omerending: Kevin Orozco To: Maya Barron Reviewed by Maya Barron MD on 12/15; All test results are final unless otherwise noted. TROPONIN T [facility] Ordered by Maya Barron MD on 12/09/2020 Collected: 12/09/2020 Reported: 12/09/2020 01:32 TROPONIN T <0.01 NG/ML (0.00 - 0.10) None Note: TROPONIN T0.1 ng/ml Recommended as the clinical threshold value forTroponin T.Responsible Observer: (AB) Reviewed by Maya Barron MD on 12/12; All test results are final unless otherwise noted. Reported Physicians [facility] Ordered by Maya Barron MD on 12/09/2020 Collected: 12/09/2020 Reported: 12/09/2020 01:32 Reported Physicians See Note None Note: Reported Physicians:Ordering: MARQUISE TOMLINSON CAttending: MARQUISE SOTOConsulting: Rubén BARRON To: Clare SOTO To: MARQUISE SOTO Reviewed by Maya Barron MD on 12/12; All test results are final unless otherwise noted. COMPREHENSIVE METABOLIC PANEL [facility] Ordered by Maya Barron MD [...] final unless otherwise noted. Reported Physicians [facility] Ordered by Maya Barron MD on 12/08/2020 Collected: 12/08/2020 Reported: 12/08/2020 22:36 Reported Physicians See Note None Note: Reported Physicians:Ordering: MARQUISE TOMLINSON CAttending: MARQUISE SOTOConsulting: Rubén BARRON To: Clare SOTO To: MARQUISE SOTO Reviewed by Maya Barron MD on 12/12; All test results are final unless otherwise noted. LIPASE SERUM [facility] Ordered by Maya Barron MD on 12/08/2020 Collected: 12/08/2020 Reported: 12/08/2020 22:32 LIPASE 33 U/L (13 - 60) None Note: Responsible Observer: (AB) Reviewed by Maya Barron MD on 12/12; All test results are final unless otherwise noted. Reported Physicians [facility] Ordered by Maya Barron MD on 12/08/2020 Collected: 12/08/2020 Reported: 12/08/2020 22:32 Reported Physicians See Note None Note: Reported Physicians:Ordering: MARQUISE TOMLINSON CAttending: MARQUISE SOTOConsulting: Rubén BARRON To: Clare SOTO To: MARQUISE SOTO Reviewed by Maya Barron MD on 12/12; All test results are final unless otherwise noted. TROPONIN T [facility] Ordered by Maya Barron MD on 12/08/2020 Collected: 12/08/2020 Reported: 12/08/2020 22:36 TROPONIN T <0.01 NG/ML (0.00 - 0.10) None Note: TROPONIN T0.1 ng/ml Recommended as the clinical threshold value forTroponin T.Responsible Observer: (AB) Reviewed by Maya Barron MD on 12/12; All test results are final unless otherwise noted. Reported Physicians [facility] Ordered by Maya Barron MD on 12/08/2020 Collected: 12/08/2020 Reported: 12/08/2020 22:36 Reported Physicians See Note None Note: Reported Physicians:Ordering: MARQUISE TOMLINSON CAttending: MARQUISE SOTOConsulting: Rubén BARRON To: MARQUISE SOTOCopyifan To: MARQUISE SOTO Reviewed by Maya Barron MD on 12/12; All test results are final unless otherwise noted. CBC W AUTO DIFF [facility] Ordered by Maya Barron MD [...] Auto See Note (0-2) N (Normal) Note: [id number] Ob counter server: IG% IG% 100.1375 (B) Hct VFr [...] test results are final unless otherwise noted. [facility] Ordered by Maya Barron MD on [...] results are final unless otherwise noted. D-DIMER [facility] Ordered by Maay Barron MD on 12/01/2020 Collected: 12/01/2020 Reported: [...] are final unless otherwise noted. Reported Physicians [facility] Ordered by Maya Barron MD on 12/01/2020 Collected: 12/01/2020 Reported: 12/01/2020 18:19 Reported Physicians See Note None Note: Reported Physicians:Ordering: Tramaine KaurothyAttending: Adam Pardo To: Maya Barron Reviewed by Maya Barron MD on 12/04; All test results are final unless otherwise noted. TROPONIN [facility] Ordered by Maya Barron MD on 12/01/2020 Collected: 12/01/2020 Reported: 12/01/2020 18:18 Troponin I SerPl-mCnc Less Than 0.015 (0.00-0.09) N (Normal) Note: Less than 0.09 NG/ML Negative 0.10 - 0.77 NG/ML High Risk0.78 NG/ML or Greater PositiveThe WHO defined the cutoff (definition for diagnosis of DC)for this method as 0.78 ng/ml.Responsible Observer: Troponin I Troponin I 600.1101 (G) Reviewed by Maya Barron MD on 12/04; All test results are final unless otherwise noted. Reported Physicians [facility] Ordered by Maya Barron MD on 12/01/2020 Collected: 12/01/2020 Reported: 12/01/2020 18:19 Reported Physicians See Note None Note: Reported Physicians:Ordering: Choco KaurAttending: Adam Pardo To: Maya Barron Reviewed by Maya Barron MD on 12/04; All test results are final unless otherwise noted. AFFIRM [facility] Ordered by Maya Barron MD on 11/29/2020 Collected: 11/29/2020 Reported: 11/30/2020 13:21 Dionna species DNA Probe NOT DETECTED (NOT DETECTED) None Note: THIS TEST WAS PERFORMED AT:[facility] [address] [id number] ONEILLesponsible Observer: Dionna DNA Dionna species DNA Probe [id number] 913.2440 ([facility]) Gardnerella DNA Probe DETECTED (NOT DETECTED) H (High) Note: Increased levels of G. vaginalis m ay not be significantin the absence of signs and symptoms of bacterialvaginosis.Responsible Observer: Gardnerella DNA Gardnerella DNA Probe [id number] 913.2345 ([facility]) Trichomonas DNA Probe NOT DETECTED (NOT DETECTED) None Note: Responsible Observer: Trichomonas DNA Trichomonas DNA Probe [id number] 913.2340 ([facility]) Reviewed by Maya Barron MD on 12/01; All test results are final unless otherwise noted. Reported Physicians [facility] Ordered by Maya Barron MD on 11/29/2020 Collected: 11/29/2020 Reported: 11/30/2020 13:21 Reported Physicians See Note None Note: Reported Physicians:Ordering: Estela SamuelAttending: Estela UpCopyifan To: Maya Barron Reviewed by Maya Barron MD on 12/01; All test results are final unless otherwise noted. Cepheid CT/NG RT-PCR [facility] Ordered by Maya Barron MD [...] may result in failure to detect the targetorganisms.70042-8O trach DNA Vag Ql ТАТЬЯНА+probeLNCHLAMNC. trachomatis NOT [id number]. trachomatis NOT HVUOCPIB32452-7P gonorrhoea rRNA Vag Ql ТАТЬЯНА+probeLNNEIGNN.gonorrhoeae NOT [id number].gonorrhoeae NOT DETECTED Reviewed by Maya Barron MD on 11/29; All test results are final unless otherwise noted. Reported Physicians [facility] Ordered by Maya Barron MD on 11/29/2020 Collected: 11/29/2020 Reported: 11/29/2020 07:03 Reported Physicians See Note None Note: Reported Physicians:Ordering: Estela SamuelAttending: Vianey Up To: Maya Barron Reviewed by Maya Barron MD on 11/29; All test results are final unless otherwise noted. UA W/ CULTURE IF ABNORMAL [facility] Ordered by Maya Barron MD on 11/29/2020 Collected: 11/29/2020 Reported: 11/29/2020 04:49 Urobilinogen Ur Ql See Note (0.2-1 EU/dl) None Note: 0.2 EU/dl0.2 EU/[id number] E U/dlResponsible Observer: UROBILINOGEN UROBILINOGEN 300.4500 (C) RBC # Ur Strip NEGATIVE (NEGATIVE) None Note: Responsible Observer: BLOOD BLOOD 300.4652 (C) Prot Ur Ql Strip See Note (NEGATIVE) None Note: [id number] EResponsible Observer: PROTEIN PROTEIN 300.3750 (C) Ketones Ur Ql Strip See Note (NEGATIVE) None Note: [id number] EResponsible Observer: KETONE KETONE 300.3900 (C) Bilirub Ur Ql Strip.auto See Note (NEGATIVE) None Note: [id number] EResponsible Observer: BILIRUBIN BILIRUBIN 300.4550 (C) Glucose Ur Strip.auto-mCnc NEGATIVE (NEGATIVE) None Note: Responsible Observer: GLUCOSE GLUC OSE 300.3850 (C) Appearance Ur See Note (CLEAR) None Note: CLEARCLEARLCLEARResponsible Observ er: APPEARANCE APPEARANCE 300.3400 (A) Color Ur See Note None Note: YELLOWYELLOWLYELLOWResponsible Obs erver: COLOR COLOR 300.3330 (A) Leukocyte esterase Ur Ql Strip See Note (NEGATIVE) None Note: [id number]@DO MICR O!!!!A Culture has been added to this specimen per established criteriaResponsible Observer: LEUKOCYTES LEUKOCYTES 300.3576 (C) Nitrite Ur Ql Strip See Note (NEGATIVE) None Note: [id number] EResponsible Observer: NITRITE NITRITE 300.3652 (B) pH [...] are final unless otherwise noted. Urine culture [facility] Ordered by Maya Barron MD on 11/29/2020 Collected: 11/29/2020 Reported: 11/30/2020 07:23 Bacteria Ur Cult See Note None Note: NGNo growth.L1NG NOTES See Note None Note: @11/29/20 0450: Urine culture adde d. RFLXG = CULT.ADD. Reviewed by Maya Barron MD on 12/01; All test results are final unless otherwise noted. Reported Physicians [facility] Ordered by Maya Barron MD on 11/29/2020 Collected: 11/29/2020 Reported: 11/30/2020 07:23 Reported Physicians See Note None Note: Reported Physicians:Ordering: Estela SamuelAttending: Vianey Up To: Maya Barron Reviewed by Maya Barron MD on 12/01; All test results are final unless otherwise noted. ADD ON MICROSCOPIC [facility] Ordered by Maya Barron MD [...] are final unless otherwise noted. Reported Physicians [facility] Ordered by Maya Barron MD on 11/29/2020 Collected: 11/29/2020 Reported: 11/29/2020 04:51 Reported Physicians See Note None Note: Reported Physicians:Ordering: Gideon Samuelending: Vianey Up To: Maya Barron Reviewed by Maya Barron MD on 11/29; All test results are final unless otherwise noted. TROPONIN [facility] Ordered by Maya Barron MD on 11/20/2020 Collected: 11/20/2020 Reported: 11/20/2020 20:04 Troponin I SerPl-mCnc Less Than 0.015 (0.00-0.09) N (Normal) Note: Less than 0.09 NG/ML Negative 0.10 - 0.77 NG/ML High Risk0.78 NG/ML or Greater PositiveThe WHO defined the cutoff (definition for diagnosis of DC)for this method as 0.78 ng/ml.Responsible Observer: Troponin I Troponin I 600.1101 (G) Reviewed by Maya Barron MD on 11/22; All test results are final unless otherwise noted. Reported Physicians [facility] Ordered by Maya Barron MD on 11/20/2020 Collected: 11/20/2020 Reported: 11/20/2020 20:05 Reported Physicians See Note None Note: Reported Physicians:Ordering: Les Vanegas AAttending: Fady Raza To: Maya Barron Reviewed by Maya Barron MD on 11/22; All test results are final unless otherwise noted. Cepheid SARS/FLU/RSV RT-PCR [facility] Ordered by Maya Barron MD [...] by FDA under an EUA for use bycib[facility] hospitalOnovativeriDosYoguresktstatuohnue00484-0RCUM-sbc CoV RNA Resp Ql ТАТЬЯНА+lkcufZILCAOOCOUW-JAK-6 NOT [id number]-IUT-4 NOT TCQHNDDJ72765-7IVXUN RNA Resp Ql ТАТЬЯНА+probeLNNFLUAInfluenza A Not Det [id number] A Not Ebkpjoyr89934-6FHNPH RNA Resp Ql ТАТЬЯНА+probeLNNINBInfluenza B Not [id number] B Not Ijsvpamw33872- 2RSV RNA Resp Ql ТАТЬЯНА+probeLNNRSVRSV Not CxgferilU3854196090MGL Not Detected Reviewed by Maya Barron MD on 11/20; All test results are final unless otherwise noted. Reported Physicians [facility] Ordered by Maya Barron MD on 11/18/2020 Collected: 11/18/2020 Reported: 11/18/2020 23:58 Reported Physicians See Note None Note: Reported Physicians:Ordering: Aj Snowending: Jos Castellanos To: Maya Barron Reviewed by Maya Barron MD on 11/20; All test results are final unless otherwise noted. URINE DRUG SCREEN -([facility]) [facility] Ordered by Maya Barron MD on 11/17/2020 Collected: 11/17/2020 Reported: 11/17/2020 14:19 PCP Ur Ql Scn>25 ng/mL See Note (Cutoff 25) None Note: [id number] E@Reenter manual test result: NEGATIVE@by Claudia Tello at 11/17/20 1414.Responsible Observer: PCP Urine Phencyclidine (PCP) Scrn 400.5120 (A) THC Ur Ql Scn>50 ng/mL See Note (Cutoff 50) None Note: [id number] EResponsible Observer: Marijuana (THC) Ur Marijuana (THC) Screen 400.5110 (A) Benzodiaz Ur Ql Scn See Note (Cutoff 150) None Note: [id number] E@Reenter manual test result: NEGATIVE@by Claudia Tello at 11/17/20 1418.Responsible Observer: Benzodiazepines Urine Benzodiazepines Screen 400.5170 (A) Opiates Ur Ql Scn See Note (Cutoff 100) None Note: [id number] E@Reenter manual test result: NEGATIVE@by Claudia Tello at 11/17/20 141.Responsible Observer: Opiates Urine Opiates Screen 400.5150 (A) Tricyclics Ur Ql Scn See Note (Cutoff 300) None Note: [id number] E@Reenter manual test result: NEGATIVE@by Claudia Tello at 11/17/20 141.Responsible Observer: TCA Ur Tricyclic Antidepressants 400.5180 (A) Cocaine Ur Ql Scn See Note (Cutoff 150) None Note: [id number] E@Reenter manual test result: NEGATIVE@by Claudia Tello at 11/17/20 141.Responsible Observer: Cocaine Urine Cocaine Screen 400.5130 (A) Propoxyph+Nor Ur Ql Scn See Note (Cutoff 300) None Note: [id number] E@Reenter manual test result: NEGATIVE@by Claudia Tello at 11/17/20 141.Responsible Observer: Propoxyphene Urine Propoxyphene Screen 400.5220 (A) Methadone Ur Ql Scn See Note (Cutoff 200) None Note: [id number] E@Reenter manual test result: NEGATIVE@by Claudia Tello at 11/17/20 141.Responsible Observer: Methadone Urine Methadone Screen 400.5190 (A) Methamphet Ur Ql Scn See Note (Cutoff 500) None Note: [id number] E@Reenter manual test result: NEGATIVE@by Claudia Tello at 11/17/20 141.Responsible Observer: Methamphetamine Urine Methamphetamines Screen 400.5140 (A) oxyCODONE Ur Ql Scn See Note (Cutoff 100) None Note: [id number] E@Reenter manual test result: NEGATIVE@by Claudia Tello at 11/17/20 141.Responsible Observer: Oxycodone Urine Oxycodone Screen 400.5210 (A) Buprenorphine Ur Ql See Note (Cutoff 10) None Note: [id number] E@Reenter manual test result: NEGATIVE@by Claudia Tello at 11/17/20 1419.Responsible Observer: Buprenorphine Urine Buprenorphine Screen 400.5230 (A) Amphetamines Ur Ql Scn>500 ng/mL See Note (Cutoff 500) None Note: [id number] E@Reenter manual test result: NEGATIVE@by Claudia Tello at 11/17/20 1418.Responsible Observer: Amphetamines Urine Amphetamines Screen 400.5160 (A) Barbiturates Ur Ql Scn>200 ng/mL See Note (Cutoff 200) None Note: [id number] E@Reenter manual test result: NEGATIVE@by Claudia Tello at 11/17/20 1418.Responsible Observer: Barbiturates Urine Barbiturates 400.5200 (A) Reviewed by Maya Barron MD on 11/20; All test results are final unless otherwise noted. TSH [facility] Ordered by Maya Barron MD on 11/17/2020 Collected: 11/17/2020 Reported: 11/17/2020 14:34 TSH SerPl DL<=0.005 mIU/L-aCnc 1.38 MicroInternationalUnitsPerMilliLiter_[Arbitrary_Con (0.35-5. 50) N (Normal) Note: Responsible Observer: TSH TSH 600 .7055 (D) Reviewed by Maya Barron MD on 11/20; All test results are final unless otherwise noted. Reported Physicians [facility] Ordered by Maya Barron MD on 11/17/2020 Collected: 11/17/2020 Reported: 11/17/2020 14:34 Reported Physicians See Note None Note: Reported Physicians:Ordering: Maya AlvarengaAttending: Maya Barron Reviewed by Maya Barron MD on 11/20; All test results are final unless otherwise noted. FREE T4 (LAB) [facility] Ordered by Maya Barron MD on 11/17/2020 Collected: 11/17/2020 Reported: 11/17/2020 14:34 T4 Free SerPl-mCnc 0.78 NanoGramsPerDeciLiter_[Mass_Concentration_Units] (0.89-1.76) L (Low) Note: Responsible Observer: FREE T4 Free Thyroxine 600.7005 (D) Reviewed by Maya Barron MD on 11/20; All test results are final unless otherwise noted. Reported Physicians [facility] Ordered by Maya Barron MD on 11/17/2020 Collected: 11/17/2020 Reported: 11/17/2020 14:34 Reported Physicians See Note None Note: Reported Physicians:Ordering: Maya AlvarengaAttending: Maya Barron Reviewed by Maya Barron MD on 11/20; All test results are final unless otherwise noted. IRON [facility] Ordered by Maya Barron MD on 11/17/2020 Collected: 11/17/2020 Reported: 11/17/2020 14:34 Iron SerPl-mCnc 39 (50-170) L (Low) Note: Iron values may be falsely elevate d in serum samples frompatients treated with anticoagulants (e.g., hemodialysispatients)Responsible Observer: Iron Level Iron Level 400.9002 (A) Reviewed by Maya Barron MD on 11/20; All test results are final unless otherwise noted. Reported Physicians [facility] Ordered by Maya Barron MD on 11/17/2020 Collected: 11/17/2020 Reported: 11/17/2020 14:34 Reported Physicians See Note None Note: Reported Physicians:Ordering: Maya AlvarengaAttending: Maya Barron Reviewed by Maya Barron MD on 11/20; All test results are final unless otherwise noted. CBC W AUTO DIFF [facility] Ordered by Maya Barron MD [...] Auto See Note (0-2) N (Normal) Note: 0.60.1O41848474267.6Responsible Ob counter server: IG% IG% 100.1375 (B) Hct VFr [...] test results are final unless otherwise noted. [address] [facility] Ordered by Maya Barron MD [...] blood glucose control.* High risk of developing chcf complications such asretinopathy, nephropathy, neuropathy, cardiopathy, etc. [...] test results are final unless otherwise noted. [facility] Ordered by Maya Barron MD on [...] final unless otherwise noted. Vitamin D 25-OH [facility] Ordered by Maya Barron MD [...] VIT D, (D2,D3), LC/MS/MS is recommended: ordercode 53907 (patients >2yrs).See Note 1Note 1For additional information, please refer tohttp://education.CompStak/faq/DDM625(This link is being provided for informational/educational purposes only.)THIS TEST WAS PERFORMED AT:[facility] [address]CLAUDY ONEILLesponsible Observer: Vitamin D 25-OH Vitamin D 25-Hydroxy [id number] 914.1810 ([facility]) Reviewed by Maya Barron MD on 11/20; All test results are final unless otherwise noted. Reported Physicians [facility] Ordered by Maya Barron MD on 11/17/2020 Collected: 11/17/2020 Reported: 11/18/2020 08:17 Reported Physicians See Note None Note: Reported Physicians:Ordering: Maya AlvarengaAttending: Maya Barron Reviewed by Maya Barron MD on 11/20; All test results are final unless otherwise noted. CBC W AUTO DIFF [facility] Ordered by Maya Barron MD [...] Auto See Note (0-2) N (Normal) Note: [id number] Ob counter server: IG% IG% 100.1375 (B) Hct VFr [...] test results are final unless otherwise noted. [facility] Ordered by Maya Barron MD on [...] results are final unless otherwise noted. D-DIMER [facility] Ordered by Maya Barron MD [...] are final unless otherwise noted. Reported Physicians [facility] Ordered by Maya Barron MD on 10/23/2020 Collected: 10/23/2020 Reported: 10/23/2020 01:22 Reported Physicians See Note None Note: Reported Physicians:Ordering: Brook yeung, PatAttending: Yoli SilvaCopy To: Maya Barron Reviewed by Maya Barron MD on 10/23; All test results are final unless otherwise noted. BHCG Quantitative [facility] Ordered by Maya Barron MD on 10/23/2020 Collected: 10/23/2020 Reported: 10/23/2020 01:21 B-HCG [facility] [address] MilliInternationalUnitsPerMilliLiter_[Arbitrary_Con (0-10) H (High) Note: @Instrument will [...] are final unless otherwise noted. Reported Physicians [facility] Ordered by Maya Barron MD on 10/23/2020 Collected: 10/23/2020 Reported: 10/23/2020 01:21 Reported Physicians See Note None Note: Reported Physicians:Ordering: Brook yeung, YoliAttending: Yoli SilvaCopy To: Maya Barron Reviewed by Maya Barron MD on 10/23; All test results are final unless otherwise noted. TROPONIN [facility] Ordered by Maya Barron MD on 10/23/2020 Collected: 10/23/2020 Reported: 10/23/2020 01:03 Troponin I SerPl-mCnc Less Than 0.015 (0.00-0.09) N (Normal) Note: Less than 0.09 NG/ML Negative 0.10 - 0.77 NG/ML High Risk0.78 NG/ML or Greater PositiveThe WHO defined the cutoff (definition for diagnosis of DC)for this method as 0.78 ng/ml.Responsible Observer: Troponin I Troponin I 600.1101 (G) Reviewed by Maya Barron MD on 10/23; All test results are final unless otherwise noted. Reported Physicians [facility] Ordered by Maya Barron MD on 10/23/2020 Collected: 10/23/2020 Reported: 10/23/2020 01:03 Reported Physicians See Note None Note: Reported Physicians:Ordering: Yoli NapolesAttending: Charles Silva To: Maya Barron Reviewed by Maya Barron MD on 10/23; All test results are final unless otherwise noted. TSH [facility] Ordered by Maya Barron MD on 10/21/2020 Collected: 10/21/2020 Reported: 10/21/2020 15:17 TSH SerPl DL<=0.005 mIU/L-aCnc 1.40 MicroInternationalUnitsPerMilliLiter_[Arbitrary_Con (0.35-5. 50) N (Normal) Note: Responsible Observer: TSH TSH 600 .7055 (D) Reviewed by Maya Barron MD on 10/23; All test results are final unless otherwise noted. Reported Physicians [facility] Ordered by Maya Barron MD on 10/21/2020 Collected: 10/21/2020 Reported: 10/21/2020 15:17 Reported Physicians See Note None Note: Reported Physicians:Ordering: Tramaine KaurothyAttending: Tramaine PardoothyCopyifan To: Maya Barron Reviewed by Maya Barron MD on 10/23; All test results are final unless otherwise noted. FREE T4 (LAB) [facility] Ordered by Maya Barron MD on 10/21/2020 Collected: 10/21/2020 Reported: 10/21/2020 15:17 T4 Free SerPl-mCnc 0.97 NanoGramsPerDeciLiter_[Mass_Concentration_Units] (0.89-1.76) N (Normal) Note: Responsible Observer: FREE T4 Free Thyroxine 600.7005 (D) Reviewed by Maya Barron MD on 10/23; All test results are final unless otherwise noted. Reported Physicians [facility] Ordered by Maya Barron MD on 10/21/2020 Collected: 10/21/2020 Reported: 10/21/2020 15:17 Reported Physicians See Note None Note: Reported Physicians:Ordering: Choco KaurAttending: Adam Pardo To: Maya Barron Reviewed by Maya Barron MD on 10/23; All test results are final unless otherwise noted. UA W/ CULTURE IF ABNORMAL [facility] Ordered by Maya Barron MD on 10/19/2020 Collected: 10/19/2020 Reported: 10/19/2020 16:31 Urobilinogen Ur Ql See Note (0.2-1 EU/dl) None Note: 0.2 EU/dl0.2 EU/[id number] E U/dlResponsible Observer: UROBILINOGEN UROBILINOGEN 300.4500 (C) RBC # Ur Strip NEGATIVE (NEGATIVE) None Note: Responsible Observer: BLOOD BLOOD 300.4652 (C) Prot Ur Ql Strip See Note (NEGATIVE) None Note: [id number] EResponsible Observer: PROTEIN PROTEIN 300.3750 (C) Ketones Ur Ql Strip See Note (NEGATIVE) None Note: [id number] EResponsible Observer: KETONE KETONE 300.3900 (C) Bilirub Ur Ql Strip.auto See Note (NEGATIVE) None Note: [id number] EResponsible Observer: BILIRUBIN BILIRUBIN 300.4550 (C) Glucose Ur Strip.auto-mCnc 100 mg/dl (NEGATIVE) None Note: Responsible Observer: GLUCOSE GLUC OSE 300.3850 (C) Appearance Ur See Note (CLEAR) None Note: CLEARCLEARLCLEARResponsible Observ er: APPEARANCE APPEARANCE 300.3400 (A) Color Ur See Note None Note: YELLOWYELLOWLYELLOWResponsible Obs erver: COLOR COLOR 300.3330 (A) Leukocyte esterase Ur Ql Strip See Note (NEGATIVE) None Note: [id number] EResponsible Observer: LEUKOCYTES LEUKOCYTES 300.3576 (C) Nitrite Ur Ql Strip See Note (NEGATIVE) None Note: [id number] EResponsible Observer: NITRITE NITRITE 300.3652 (B) pH [...] are final unless otherwise noted. Reported Physicians [facility] Ordered by Maya Barron MD on 10/19/2020 Collected: 10/19/2020 Reported: 10/19/2020 16:31 Reported Physicians See Note None Note: Reported Physicians:Ordering: Les Vanegas AAttending: Fady Raza To: Maya Barron Reviewed by Maya Barron MD on 10/20; All test results are final unless otherwise noted. URINE DRUG SCREEN -([facility]) [facility] Ordered by Maya Barron MD on 10/19/2020 Collected: 10/19/2020 Reported: 10/19/2020 16:40 PCP Ur Ql Scn>25 ng/mL See Note (Cutoff 25) None Note: [id number] E@Reenter manual test result: NEGATIVE@by Jia Lentz at 10/19/20 1639.Responsible Observer: PCP Urine Phencyclidine (PCP) Scrn 400.5120 (A) THC Ur Ql Scn>50 ng/mL See Note (Cutoff 50) None Note: [id number] EResponsible Observer: Marijuana (THC) Ur Marijuana (THC) Screen 400.5110 (A) Benzodiaz Ur Ql Scn See Note (Cutoff 150) None Note: [id number] E@Reenter manual test result: NEGATIVE@by Jia Lentz at 10/19/20 1640.Responsible Observer: Benzodiazepines Urine Benzodiazepines Screen 400.5170 (A) Opiates Ur Ql Scn See Note (Cutoff 100) None Note: [id number] E@Reenter manual test result: NEGATIVE@by Jia Lentz at 10/19/20 1640.Responsible Observer: Opiates Urine Opiates Screen 400.5150 (A) Tricyclics Ur Ql Scn See Note (Cutoff 300) None Note: [id number] E@Reenter manual test result: NEGATIVE@by Jia Lentz at 10/19/20 1640.Responsible Observer: TCA Ur Tricyclic Antidepressants 400.5180 (A) Cocaine Ur Ql Scn See Note (Cutoff 150) None Note: [id number] E@Reenter manual test result: NEGATIVE@by Jia Lentz at 10/19/20 1640.Responsible Observer: Cocaine Urine Cocaine Screen 400.5130 (A) Propoxyph+Nor Ur Ql Scn See Note (Cutoff 300) None Note: [id number] E@Reenter manual test result: NEGATIVE@by Jia Lentz at 10/19/20 1640.Responsible Observer: Propoxyphene Urine Propoxyphene Screen 400.5220 (A) Methadone Ur Ql Scn See Note (Cutoff 200) None Note: [id number] E@Reenter manual test result: NEGATIVE@by Jia Lentz at 10/19/20 1640.Responsible Observer: Methadone Urine Methadone Screen 400.5190 (A) Methamphet Ur Ql Scn See Note (Cutoff 500) None Note: [id number] E@Reenter manual test result: NEGATIVE@by Jia Lentz at 04/08/21 1640.Responsible Observer: Methamphetamine Urine Methamphetamines Screen 400.5140 (A) oxyCODONE Ur Ql Scn See Note (Cutoff 100) None Note: [id number] E@Reenter manual test result: NEGATIVE@by Jia Lentz at 10/19/20 1640.Responsible Observer: Oxycodone Urine Oxycodone Screen 400.5210 (A) Buprenorphine Ur Ql See Note (Cutoff 10) None Note: [id number] E@Reenter manual test result: NEGATIVE@by Jia Lentz at 10/19/20 1640.Responsible Observer: Buprenorphine Urine Buprenorphine Screen 400.5230 (A) Amphetamines Ur Ql Scn>500 ng/mL See Note (Cutoff 500) None Note: [id number] E@Reenter manual test result: NEGATIVE@by Jia Lentz at 10/19/20 1640.Responsible Observer: Amphetamines Urine Amphetamines Screen 400.5160 (A) Barbiturates Ur Ql Scn>200 ng/mL See Note (Cutoff 200) None Note: [id number] E@Reenter manual test result: NEGATIVE@by Jia Lentz at 10/19/20 1640.Responsible Observer: Barbiturates Urine Barbiturates 400.5200 (A) Reviewed by Maya Barron MD on 10/20; All test results are final unless otherwise noted. Reported Physicians [facility] Ordered by Maya Barron MD on 10/19/2020 Collected: 10/19/2020 Reported: 10/19/2020 16:40 Reported Physicians See Note None Note: Reported Physicians:Ordering: Les Vanegasding: Fady Raza To: Maya Barron Reviewed by Maya Barron MD on 10/20; All test results are final unless otherwise noted. CRP, C-REACTIVE PROTEIN [facility] Ordered by Maya Barron MD on 10/19/2020 Collected: 10/19/2020 Reported: 10/19/2020 16:08 CRP SerPl-mCnc 7.5 MilliGramsPerLiter_[Mass_Concentration_Units] (0.0-5.0) H (High) Note: Responsible Observer: CRP C-Reacti ve Protein 401.4355 (H) Reviewed by Maya Barron MD on 10/20; All test results are final unless otherwise noted. SED RATE [facility] Ordered by Maya Barron MD on 10/19/2020 Collected: 10/19/2020 Reported: 10/19/2020 16:32 ESR Bld Qn Westrgrn 22 (0-20) H (High) Note: @Reenter manual test result: 22@by Jia Lentz at 10/19/20 1632.Responsible Observer: SED RATE SED RATE 100.6400 (B) Reviewed by Maya Barron MD on 10/20; All test results are final unless otherwise noted. Reported Physicians [facility] Ordered by Maya Barron MD on 10/19/2020 Collected: 10/19/2020 Reported: 10/19/2020 16:33 Reported Physicians See Note None Note: Reported Physicians:Ordering: Les Vanegas: Fady Raza To: Maya Barron Reviewed by Maya Barron MD on 10/20; All test results are final unless otherwise noted. TROPONIN [facility] Ordered by Maya Barron MD on 10/19/2020 Collected: 10/19/2020 Reported: 10/19/2020 16:10 Troponin I SerPl-mCnc Less Than 0.015 (0.00-0.09) N (Normal) Note: Less than 0.09 NG/ML Negative 0.10 - 0.77 NG/ML High Risk0.78 NG/ML or Greater PositiveThe WHO defined the cutoff (definition for diagnosis of DC)for this method as 0.78 ng/ml.Responsible Observer: Troponin I Troponin I 600.1101 (G) Reviewed by Maya Barron MD on 10/20; All test results are final unless otherwise noted. Reported Physicians [facility] Ordered by Maya Barron MD on 10/19/2020 Collected: 10/19/2020 Reported: 10/19/2020 16:10 Reported Physicians See Note None Note: Reported Physicians:Ordering: Les Vanegas: Fady Raza To: Maya Barron Reviewed by Maya Barron MD on 10/20; All test results are final unless otherwise noted. TSH w/ reflex to Free T4 [facility] Ordered by Maya Barron MD on 10/19/2020 Collected: 10/19/2020 Reported: 10/19/2020 16:08 TSH SerPl DL<=0.005 mIU/L-aCnc 1.66 MicroInternationalUnitsPerMilliLiter_[Arbitrary_Con (0.35-5. 50) N (Normal) Note: Responsible Observer: TSH TSH 600 .7060 (D) Reviewed by Maya Barron MD on 10/20; All test results are final unless otherwise noted. Reported Physicians [facility] Ordered by Maya Barron MD on 10/19/2020 Collected: 10/19/2020 Reported: 10/19/2020 16:08 Reported Physicians See Note None Note: Reported Physicians:Ordering: Les Vanegasding: Fady Raza To: Maya Barron Reviewed by Maya Barron MD on 10/20; All test results are final unless otherwise noted. CMP [facility] Ordered by Maya Barron MD [...] unless otherwise noted. CBC W AUTO DIFF [facility] Ordered by Maya Barron MD [...] Auto See Note (0-2) N (Normal) Note: [id number] Ob counter server: IG% IG% 100.1375 (B) Hct VFr [...] are final unless otherwise noted. Reported Physicians [facility] Ordered by Maya Barron MD on 10/19/2020 Collected: 10/19/2020 Reported: 10/19/2020 16:33 Reported Physicians See Note None Note: Reported Physicians:Ordering: Les Vanegasding: Fady Raza To: Maya Barron Reviewed by Maya Barron MD on 10/20; All test results are final unless otherwise noted. BMP [facility] Ordered by Maya Barron MD [...] are final unless otherwise noted. Reported Physicians [facility] Ordered by Maya Barron MD on 10/08/2020 Collected: 10/08/2020 Reported: 10/08/2020 03:21 Reported Physicians See Note None Note: Reported Physicians:Ordering: Sana Recinosending: Sammie Ann To: Maya Barron Reviewed by Maya Barron MD on 10/09; All test results are final unless otherwise noted. CBC W AUTO DIFF [facility] Ordered by Maya Barron MD [...] Auto See Note (0-2) N (Normal) Note: [id number] Ob counter server: IG% IG% 100.1375 (B) Hct VFr [...] results are final unless otherwise noted. MAGNESIUM [facility] Ordered by Maya Barron MD on 10/08/2020 Collected: 10/08/2020 Reported: 10/08/2020 03:17 Magnesium SerPl-mCnc 1.8 MilliGramsPerDeciLiter_[Mass_Concentration_Units] (1.3-2.7) N (Normal) Note: Responsible Observer: Magnesium Lamont gnesium 400.3300 (G) Reviewed by Maya Barron MD on 10/09; All test results are final unless otherwise noted. D-DIMER [facility] Ordered by Maya Barron MD [...] are final unless otherwise noted. Reported Physicians [facility] Ordered by Maya Barron MD on 10/08/2020 Collected: 10/08/2020 Reported: 10/08/2020 03:27 Reported Physicians See Note None Note: Reported Physicians:Ordering: Sana Recinosending: Sammie Ann To: Maya Barron Reviewed by Maya Barron MD on 10/09; All test results are final unless otherwise noted. PT/PTT [facility] Ordered by Maya Barron MD [...] are final unless otherwise noted. Reported Physicians [facility] Ordered by Maya Barron MD on 10/08/2020 Collected: 10/08/2020 Reported: 10/08/2020 03:22 Reported Physicians See Note None Note: Reported Physicians:Ordering: Sana Recinosending: Sammie Ann To: Maya Barron Reviewed by Maya Barron MD on 10/09; All test results are final unless otherwise noted. SED RATE [facility] Ordered by Maya Barron MD on 10/04/2020 Collected: 10/04/2020 Reported: 10/04/2020 18:05 ESR Bld Qn Westrgrn 16 (0-20) N (Normal) Note: @Reenter manual test result: 16@by Jia Lentz at 10/04/20 1805.Responsible Observer: SED RATE SED RATE 100.6400 (B) Reviewed by Maya Barron MD on 10/09; All test results are final unless otherwise noted. Reported Physicians [facility] Ordered by Maya Barron MD on 10/04/2020 Collected: 10/04/2020 Reported: 10/04/2020 18:06 Reported Physicians See Note None Note: Reported Physicians:Ordering: Les Vanegasding: Fady Raza To: Maya Barron Reviewed by Maya Barron MD on 10/09; All test results are final unless otherwise noted. CBC W AUTO DIFF [facility] Ordered by Maya Barron MD [...] Auto See Note (0-2) N (Normal) Note: [id number] Ob counter server: IG% IG% 100.1375 (B) Hct VFr [...] test results are final unless otherwise noted. [facility] Ordered by Maya Braron MD on 10/04/2020 Collected: 10/04/2020 Reported: 10/04/2020 [...] are final unless otherwise noted. Reported Physicians [facility] Ordered by Maya Barron MD on 10/04/2020 Collected: 10/04/2020 Reported: 10/04/2020 17:42 Reported Physicians See Note None Note: Reported Physicians:Ordering: Les Vanegasding: Fady Raza To: Maya Barron Reviewed by Maya Barron MD on 10/09; All test results are final unless otherwise noted. TSH w/ reflex to Free T4 [facility] Ordered by Maya Barron MD on 10/04/2020 Collected: 10/04/2020 Reported: 10/04/2020 17:42 TSH SerPl DL<=0.005 mIU/L-aCnc 1.92 MicroInternationalUnitsPerMilliLiter_[Arbitrary_Con (0.35-5. 50) N (Normal) Note: Responsible Observer: TSH TSH 600 .7060 (D) Reviewed by Maya Barron MD on 10/09; All test results are final unless otherwise noted. Reported Physicians [facility] Ordered by Maya Barron MD on 10/04/2020 Collected: 10/04/2020 Reported: 10/04/2020 17:42 Reported Physicians See Note None Note: Reported Physicians:Ordering: Les Vanegas: Fady Raza To: Maya Barron Reviewed by Maya Barron MD on 10/09; All test results are final unless otherwise noted. TROPONIN [facility] Ordered by Maya Barron MD on 10/04/2020 Collected: 10/04/2020 Reported: 10/04/2020 17:35 Troponin I SerPl-mCnc Less Than 0.015 (0.00-0.09) N (Normal) Note: Less than 0.09 NG/ML Negative 0.10 - 0.77 NG/ML High Risk0.78 NG/ML or Greater PositiveThe WHO defined the cutoff (definition for diagnosis of DC)for this method as 0.78 ng/ml.Responsible Observer: Troponin I Troponin I 600.1101 (G) Reviewed by Maya Barron MD on 10/09; All test results are final unless otherwise noted. Reported Physicians [facility] Ordered by Maya Barron MD on 10/04/2020 Collected: 10/04/2020 Reported: 10/04/2020 17:35 Reported Physicians See Note None Note: Reported Physicians:Ordering: Les Vanegas: Fady Raza To: Maya Barron Reviewed by Maya Barron MD on 10/09; All test results are final unless otherwise noted. TROPONIN [facility] Ordered by Maya Barron MD on 10/03/2020 Collected: 10/03/2020 Reported: 10/03/2020 20:07 Troponin I SerPl-mCnc Less Than 0.015 (0.00-0.09) N (Normal) Note: Less than 0.09 NG/ML Negative 0.10 - 0.77 NG/ML High Risk0.78 NG/ML or Greater PositiveThe WHO defined the cutoff (definition for diagnosis of DC)for this method as 0.78 ng/ml.Responsible Observer: Troponin I Troponin I 600.1101 (G) Reviewed by Maya Barron MD on 10/04; All test results are final unless otherwise noted. Reported Physicians [facility] Ordered by Maya Barron MD on 10/03/2020 Collected: 10/03/2020 Reported: 10/03/2020 20:07 Reported Physicians See Note None Note: Reported Physicians:Ordering: Yoli NapolesAttending: Yoli SilvaCopy To: Maya Barron Reviewed by Maya Barron MD on 10/04; All test results are final unless otherwise noted. BHCG Quantitative [facility] Ordered by Maya Barron MD on 10/03/2020 Collected: 10/03/2020 Reported: 10/03/2020 20:23 B-HCG [facility] [address] MilliInternationalUnitsPerMilliLiter_[Arbitrary_Con (0-10) H (High) Note: @Instrument will [...] are final unless otherwise noted. Reported Physicians [facility] Ordered by Maya Barron MD on 10/03/2020 Collected: 10/03/2020 Reported: 10/03/2020 20:23 Reported Physicians See Note None Note: Reported Physicians:Ordering: Brook yeung, YoliAttending: Charles Silva To: Maya Barron Reviewed by Maya Braron MD on 10/04; All test results are final unless otherwise noted. MANUAL DIFF [facility] Ordered by Maya Barron MD [...] are final unless otherwise noted. Reported Physicians [facility] Ordered by Maya Barron MD on 10/03/2020 Collected: 10/03/2020 Reported: 10/03/2020 19:56 Reported Physicians See Note None Note: Reported Physicians:Ordering: Cliff Napolesending: Charles Silva To: Maya Barron Reviewed by Maya Barron MD on 10/04; All test results are final unless otherwise noted. CBC W AUTO DIFF [facility] Ordered by Maya Barron MD [...] Auto See Note (0-2) N (Normal) Note: [id number] Ob counter server: IG% IG% 100.1375 (B) Hct VFr [...] test results are final unless otherwise noted. [facility] Ordered by Maya Barron MD on [...] are final unless otherwise noted. Reported Physicians [facility] Ordered by Maya Barron MD on 10/03/2020 Collected: 10/03/2020 Reported: 10/03/2020 20:03 Reported Physicians See Note None Note: Reported Physicians:Ordering: Yoli NapolesAttending: Charles Silva To: Maya Barron Reviewed by Maya Barron MD on 10/04; All test results are final unless otherwise noted. FREE T4 (LAB) [facility] Ordered by Maya Barron MD on 10/03/2020 Collected: 10/03/2020 Reported: 10/03/2020 20:08 T4 Free SerPl-mCnc 0.97 NanoGramsPerDeciLiter_[Mass_Concentration_Units] (0.89-1.76) N (Normal) Note: Responsible Observer: FREE T4 Free Thyroxine 600.7005 (D) Reviewed by Maya Barron MD on 10/04; All test results are final unless otherwise noted. Reported Physicians [facility] Ordered by Maya Barron MD on 10/03/2020 Collected: 10/03/2020 Reported: 10/03/2020 20:08 Reported Physicians See Note None Note: Reported Physicians:Ordering: Yoli NapolesAttending: Charles Silva To: Maya Barron Reviewed by Maya Barron MD on 10/04; All test results are final unless otherwise noted. ADD ON MICROSCOPIC [facility] Ordered by Maya Barron MD on 10/03/2020 Collected: 10/03/2020 Reported: 10/03/2020 19:52 ADD ON MICROSCOPIC See Note (0-5) None Note: NOTES OTHER/NOT INTERPRETED Bacteria UrnS Ql Micro SMALL AMOUNT Bacteria UrnS Ql Micro SMALL AMOUNT Bacteria UrnS Ql Micro L Bacteria UrnS Ql Micro Bacteria UrnS Ql Micro Bacteria UrnS Ql Micro Bacteria UrnS Ql Micro [id number] Bacteria UrnS Ql Micro Bacteria UrnS Ql [...] are final unless otherwise noted. Reported Physicians [facility] Ordered by Maya Barron MD on 10/03/2020 Collected: 10/03/2020 Reported: 10/03/2020 19:52 Reported Physicians See Note None Note: Reported Physicians:Ordering: Cliff Napolesending: Charles Silva To: Maya Barron Reviewed by Maya Barron MD on 10/04; All test results are final unless otherwise noted. UA W/ CULTURE IF ABNORMAL [facility] Ordered by Maya Barron MD on 10/03/2020 Collected: 10/03/2020 Reported: 10/03/2020 19:52 Urobilinogen Ur Ql See Note (0.2-1 EU/dl) None Note: 0.2 EU/dl0.2 EU/[id number] E U/dlResponsible Observer: UROBILINOGEN UROBILINOGEN 300.4500 (C) RBC # Ur Strip NEGATIVE (NEGATIVE) None Note: Responsible Observer: BLOOD BLOOD 300.4652 (C) Prot Ur Ql Strip See Note (NEGATIVE) None Note: [id number] EResponsible Observer: PROTEIN PROTEIN 300.3750 (C) Ketones Ur Ql Strip See Note (NEGATIVE) None Note: [id number] EResponsible Observer: KETONE KETONE 300.3900 (C) Bilirub Ur Ql Strip.auto See Note (NEGATIVE) None Note: [id number] EResponsible Observer: BILIRUBIN BILIRUBIN 300.4550 (C) Glucose Ur Strip.auto-mCnc NEGATIVE (NEGATIVE) None Note: Responsible Observer: GLUCOSE GLUC OSE 300.3850 (C) Appearance Ur See Note (CLEAR) None Note: CLEARCLEARLCLEARResponsible Observ er: APPEARANCE APPEARANCE 300.3400 (A) Color Ur See Note None Note: YELLOWYELLOWLYELLOWResponsible Obs erver: COLOR COLOR 300.3330 (A) Leukocyte esterase Ur Ql Strip See Note (NEGATIVE) None Note: [id number]@DO MICR O!!!!A Culture has been added to this specimen per established criteriaResponsible Observer: LEUKOCYTES LEUKOCYTES 300.3576 (C) Nitrite Ur Ql Strip See Note (NEGATIVE) None Note: [id number] EResponsible Observer: NITRITE NITRITE 300.3652 (B) pH [...] for ordering culture: Abnor mal findings UA@10/03/20 1941: UA W/ MICRO added. RFLXG = UMIC CIF.Method of Collection:: Voided Reviewed by Maya Barron MD on 10/04; All test results are final unless otherwise noted. Urine culture [facility] Ordered by Maya Barron MD on 10/03/2020 Collected: 10/03/2020 Reported: 10/04/2020 13:10 Bacteria Ur Cult See Note None Note: NGNo growth.L1NG NOTES See Note None Note: @10/03/201951: Urine culture adde d. RFLXG = CULT.ADD. Reviewed by Maya Barron MD on 10/04; All test results are final unless otherwise noted. Reported Physicians [facility] Ordered by Maya Barron MD on 10/03/2020 Collected: 10/03/2020 Reported: 10/04/2020 13:10 Reported Physicians See Note None Note: Reported Physicians:Ordering: Yoli NapolesAttending: Charles Silva To: Maya Barron Reviewed by Maya Barron MD on 10/04; All test results are final unless otherwise noted. TROPONIN [facility] Ordered by Maya Barron MD on 09/18/2020 Collected: 09/18/2020 Reported: 09/18/2020 20:10 Troponin I SerPl-mCnc Less Than 0.015 (0.00-0.09) N (Normal) Note: Less than 0.09 NG/ML Negative 0.10 - 0.77 NG/ML High Risk0.78 NG/ML or Greater PositiveThe WHO defined the cutoff (definition for diagnosis of DC)for this method as 0.78 ng/ml.Responsible Observer: Troponin I Troponin I 600.1101 (G) Reviewed by Maya Barron MD on 09/20; All test results are final unless otherwise noted. Reported Physicians [facility] Ordered by Maya Barron MD on 09/18/2020 Collected: 09/18/2020 Reported: 09/18/2020 20:10 Reported Physicians See Note None Note: Reported Physicians:Ordering: Yoli NapolesAttending: Charles Silva To: Maya Barron Reviewed by Maya Barron MD on 09/20; All test results are final unless otherwise noted. BHCG, QUANTITATIVE [facility] Ordered by Maya Barron MD on 09/18/2020 Collected: 09/18/2020 Reported: 09/18/2020 20:21 B-HCG [facility] [id number] MilliInternationalUnitsPerMilliLiter_[Arbitrary_Con (0-10) H (High) Note: APPROXIMATE GESTATION [...] are final unless otherwise noted. Reported Physicians [facility] Ordered by Maya Barron MD on 09/18/2020 Collected: 09/18/2020 Reported: 09/18/2020 20:22 Reported Physicians See Note None Note: Reported Physicians:Ordering: Yoli NapolesAttending: Charles Silva To: Maya Barron Reviewed by Maya Barron MD on 09/20; All test results are final unless otherwise noted. CBC W AUTO DIFF [facility] Ordered by Maya Barron MD [...] Auto See Note (0-2) N (Normal) Note: [id number] Ob counter server: IG% IG% 100.1375 (B) Hct VFr [...] test results are final unless otherwise noted. [facility] Ordered by Maya Barron MD on [...] are final unless otherwise noted. Reported Physicians [facility] Ordered by Maya Barron MD on 09/18/2020 Collected: 09/18/2020 Reported: 09/18/2020 20:10 Reported Physicians See Note None Note: Reported Physicians:Ordering: Yoli NapolesAttending: Charles Silva To: Maya Barron Reviewed by Maya Barron MD on 09/20; All test results are final unless otherwise noted. Urine culture [facility] Ordered by Cat Gutierrez RPA on 09/11/2020 Collected: 09/11/2020 Reported: 09/12/2020 13:11 Bacteria Ur Cult See Note None Note: NGNo growth.L1NG NOTES See Note None Note: GEORGIANA PICKARD IN OTHER NAME IN MEDICAL RECORD Reviewed by Cat Gutierrez RPA on 09/12; All test results are final unless otherwise noted. Reported Physicians [facility] Ordered by Cat Gutierrez RPA on 09/11/2020 Collected: 09/11/2020 Reported: 09/12/2020 13:11 Reported Physicians See Note None Note: Reported Physicians:Ordering: Cat ConwayAttending: Cat Gutierrez Reviewed by Cat Gutierrez RPA on 09/12; All test results are final unless otherwise noted. UA W/ CULTURE IF ABNORMAL [facility] Ordered by Maya Barron MD on 09/10/2020 Collected: 09/10/2020 Reported: 09/10/2020 17:48 Urobilinogen Ur Ql See Note (0.2-1 EU/dl) None Note: 0.2 EU/dl0.2 EU/[id number] E U/dlResponsible Observer: UROBILINOGEN UROBILINOGEN 300.4500 (C) RBC # Ur Strip NEGATIVE (NEGATIVE) None Note: Responsible Observer: BLOOD BLOOD 300.4652 (C) Prot Ur Ql Strip See Note (NEGATIVE) None Note: [id number] EResponsible Observer: PROTEIN PROTEIN 300.3750 (C) Ketones Ur Ql Strip See Note (NEGATIVE) None Note: [id number] ble Observer: KETONE KETONE 300.3900 (C) Bilirub Ur Ql Strip.auto See Note (NEGATIVE) None Note: [id number] EResponsible Observer: BILIRUBIN BILIRUBIN 300.4550 (C) Glucose Ur Strip.auto-mCnc NEGATIVE (NEGATIVE) None Note: Responsible Observer: GLUCOSE GLUC OSE 300.3850 (C) Appearance Ur See Note (CLEAR) None Note: CLEARCLEARLCLEARResponsible Observ er: APPEARANCE APPEARANCE 300.3400 (A) Color Ur See Note None Note: YELLOWYELLOWLYELLOWResponsible Obs erver: COLOR COLOR 300.3330 (A) Leukocyte esterase Ur Ql Strip See Note (NEGATIVE) None Note: [id number] EResponsible Observer: LEUKOCYTES LEUKOCYTES 300.3576 (C) Nitrite Ur Ql Strip See Note (NEGATIVE) None Note: [id number] EResponsible Observer: NITRITE NITRITE 300.3652 (B) pH [...] are final unless otherwise noted. Reported Physicians [facility] Ordered by Maya Barron MD on 09/10/2020 Collected: 09/10/2020 Reported: 09/10/2020 17:48 Reported Physicians See Note None Note: Reported Physicians:Ordering: Les Vanegas: Fady Raza To: Maya Barron Reviewed by Maya Barron MD on 09/11; All test results are final unless otherwise noted. ABO/Rh Type [facility] Ordered by Maay Barron MD on 09/10/2020 Collected: 09/10/2020 Reported: 09/10/2020 15:43 Blood bank studies Yes None Note: Responsible Observer: Prev. Histor y? Previous History? 100.0800 (A) Blood Type See Note None Note: OPO PositiveLResponsible Observer: Blood Type Blood Type 110.0950 (C) Reviewed by Maya Barron MD on 09/11; All test results are final unless otherwise noted. Reported Physicians [facility] Ordered by Maya Barron MD on 09/10/2020 Collected: 09/10/2020 Reported: 09/10/2020 15:43 Reported Physicians See Note None Note: Reported Physicians:Ordering: Les Vanegas: Fady Raza To: Maya Barron Reviewed by Maya Barron MD on 09/11; All test results are final unless otherwise noted. BHCG, QUANTITATIVE [facility] Ordered by Maya Barron MD on 09/10/2020 Collected: 09/10/2020 Reported: 09/10/2020 15:[address] [facility] [address] MilliInternationalUnitsPerMilliLiter_[Arbitrary_Con (0-10) H (High) Note: @Instrument will [...] are final unless otherwise noted. Reported Physicians [facility] Ordered by Maya Barron MD on 09/10/2020 Collected: 09/10/2020 Reported: 09/10/2020 15:49 Reported Physicians See Note None Note: Reported Physicians:Ordering: Les Vanegastending: Fady Raza To: Maya Barron Reviewed by Maya Barron MD on 09/11; All test results are final unless otherwise noted. COVID QUEST [facility] Ordered by Maya Barron MD [...] findings,re- testing should be considered in consultation [facility] health authorities. Laboratory test results shouldalways be considered in the context of clinicalobservations and epidemiological data in making a finaldiagnosis and patient management decisions.Please review the "Fact Sheets" and FDA authorizedlabeling available for health care providers andpatients using the following websites:https://www.[employer] .com/home/Covid-19/HCP/NAAT/fact-jjxcs7vnzht://www.[employer]/home/Cov id-19/Patients/NAAT/fact-cptaf1Wfkg test has been authorized by the FDA under anEmergency Use Authorization (EUA) for use by authorizedlaboratories.Due to the current public health emergency, [facility] is receiving a high volume of samples [...] information about COVID-19 can be foundat the [employer] website:www.[employer].com/Covid19.THIS TEST WAS PERFORMED AT:[facility] [address]SBCFHRCLAUDY ONEILLesponsible Observer: COVID-19 COVID-19 АТТЬЯНА (SARS-CoV-2) [id number] 914.3975 ([facility]) Reviewed by Maya Barron MD on 08/25; All test results are final unless otherwise noted. Reported Physicians [facility] Ordered by Maya Barron MD on 08/23/2020 Collected: 08/23/2020 Reported: 08/25/2020 03:57 Reported Physicians See Note None Note: Reported Physicians:Ordering: Sana Recinosending: Jasper Annopy To: Maya Barron Reviewed by Maya Barron MD on 08/25; All test results are final unless otherwise noted. Rapid Strep [facility] Ordered by Maya Barron MD on 08/15/2020 [address] [place], [address] Collected: 08/15/2020 Reported: 08/15/2020 11:47 tel : strep antigen normal (negative) N (Normal) Reviewed by Maya Barron MD on 08/15; All test results are final unless otherwise noted. Urinalysis w/out microscopy [facility] Ordered by Maya Barron MD on 08/15/2020 [address] [place], [address] Specimen Source: Urine Collected: 08/15/2020 Reporte d: [...] unless otherwise noted. Extended hours FLU/COV2 NAAT [facility] Ordered by Maya Barron MD on 08/15/2020 Collected: 08/15/2020 Reported: 08/15/2020 15:55 Extended hours FLU/COV2 NAAT See Note None Note: TNPNo Reportable ResultLTNPNo Repo rtable HykcxlK9XUE NOTES See Note None Note: GEORGIANA PICKARD IN OTHER NAME IN MEDICAL RECORD Reviewed by Maya Barron MD on 08/16; All test results are final unless otherwise noted. Reported Physicians [facility] Ordered by Maya Barron MD on 08/15/2020 Collected: 08/15/2020 Reported: 08/15/2020 15:55 Reported Physicians See Note None Note: Reported Physicians:Ordering: Maya AlvarengaAttending: Maya Barron Reviewed by Maya Barron MD on 08/16; All test results are final unless otherwise noted. Sweta Raquel SARS/FLU [facility] Ordered by Maya Barron MD on 08/15/2020 Collected: 08/15/2020 Reported: 08/15/2020 15:55 Sweta Raquel SARS/FLU See Note None Note: Sweta Raquel is a rapid, automated q ualitative anddifferentiation of Influenza type A,B and VXPZ-TPZ-4YVOY-RT-PCR testNORMAL VALUE IS "NOT DETECTED".Limitations of the sweta raquel Influenza A/B & QNVC-HZC-0uhsny method.Modifications to manufacturers recommendation and proceduresmay alter performance of the test.Negative results do not preclude Influenza A,B or SARS- BNJ8hsksqbbqnu and should not be used as the [...] out diseases caused by other bacterialor viral pathogens.21906-0VFKT-tlo CoV RNA Resp Ql ТАТЬЯНА+probeLNNSARS SARS-COV-2 NOT [id number]-JGE-4 NOT FKBBGUWT47738-0KDRHM RNA Resp Ql ТАТЬЯНА+probeLNNFLUAInfluenza A Not [id number] A Not Wzlhjlhf33906-4HEDSE RNA Resp Ql ТАТЬЯНА+probeLNNINBInfluenza B Not [id number] B Not Detected NOTES See Note None Note: GEORGIANA PICKARD IN OTHER NAME IN MEDICAL RECORD Reviewed by Maya Barron MD on 08/18; All test results are final unless otherwise noted. Throat culture [facility] Ordered by Maya aBrron MD on 08/15/2020 Collected: 08/15/2020 Reported: 08/17/2020 06:37 Throat culture results Normal Deisy None Reviewed by Maya Barron MD on 08/18; All test results are final unless otherwise noted. Reported Physicians [facility] Ordered by Maya Barron MD on 08/15/2020 Collected: 08/15/2020 Reported: 08/17/2020 06:37 Reported Physicians See Note None Note: Reported Physicians:Ordering: Maya AlvarengaAttending: Maya Barron Reviewed by Maya Barron MD on 08/18; All test results are final unless otherwise noted. HPVI [facility] Ordered by Cat Gutierrez RPA on 08/09/2020 Collected: 08/09/2020 Reported: 08/15/2020 06:53 Thin Prep Vag See Note None Note: See scanned reportSee scanned repo rtLSee scanned reportResponsible Observer: TP w/HPV if ASC Thinprep w/HPV if ASCUS 805.1454 ([facility]) NOTES See Note None Note: [id number] Technique: BRUS H-SPATULABody Site: CERVIX Reviewed by Cat Gutierrez RPA on 08/15; All test results are final unless otherwise noted. Reported Physicians [facility] Ordered by Cat Gutierrez RPA on 08/09/2020 Collected: 08/09/2020 Reported: 08/15/2020 06:53 Reported Physicians See Note None Note: Reported Physicians:Ordering: Atte nding: Cat GutierrezCopy To: Maya Barron Reviewed by Cat Gutierrez RPA on 08/15; All test results are final unless otherwise noted. GCAMP [facility] Ordered by Cat Gutierrez RPA on 08/09/2020 Collected: 08/09/2020 Reported: 08/11/2020 06:52 C trach rRNA XXX Ql ТАТЬЯНА+probe See Note (NOT DETECTED) None Note: NOT DETECTEDNOT [id number] 6NOT DETECTEDResponsible Observer: C.Trach RNA Chlamydia trachomatis DNA-ТАТЬЯНА [id number] 913.9900 ([facility]) N gonorrhoea rRNA XXX Ql ТАТЬЯНА+probe See Note (NOT DETECTED) None Note: NOT DETECTEDNOT [id number] 6NOT DETECTEDResponsible Observer: GC RNA Neisseria gonorrhoeae DNA -ТАТЬЯНА [id number] 913.9905 ([facility]) Chlamydia/GC DNA Note SEE NOTE None Note: The analytical performance charact eristics of thisassay, when used to test SurePath(TM) specimens have beendetermined by [employer]. The modifications havenot been cleared or approved by the FDA. This assay hasbeen validated pursuant to the CLIA regulations and isused for clinical purposes.For additional information, please refer tohttps://education.goBramble/faq/HKH232(This link is being provided for information/educational purposes only.)THIS TEST WAS PERFORMED AT:[facility] [id number],MDResponsible Observer: GC/Chlam Note Chlamydia/GC DNA Note [id number] 913.9972 (A) NOTES See Note None Note: PICKARD:IN OTHER NAME IN MEDICAL RECORD Reviewed by Cat Gutierrez RPA on 08/12; All test results are final unless otherwise noted. Reported Physicians [facility] Ordered by Cat Gutierrez RPA on 08/09/2020 Collected: 08/09/2020 Reported: 08/11/2020 06:52 Reported Physicians See Note None Note: Reported Physicians:Ordering: Atte nding: Brenda, GaudencioanaCopy To: Maya Barron Reviewed by Cat Gutierrez RPA on 08/12; All test results are final unless otherwise noted. AFFIRM [facility] Ordered by Cat Gutierrez RPA on 08/09/2020 Collected: 08/09/2020 Reported: 08/11/2020 06:52 Dionna species DNA Probe NOT DETECTED (NOT DETECTED) None Note: THIS TEST WAS PERFORMED AT:[facility] [address]BPKCFJ MERATI,MDResponsible Observer: Dionna DNA Dionna species DNA Probe [id number] 913.2350 ([facility]) Gardnerella DNA Probe DETECTED (NOT DETECTED) H (High) Note: Increased levels of G. vaginalis m ay not be significantin the absence of signs and symptoms of bacterialvaginosis.Responsible Observer: Gardnerella DNA Gardnerella DNA Probe 56603771 913.2345 ([facility]) Trichomonas DNA Probe NOT DETECTED (NOT DETECTED) None Note: Responsible Observer: Trichomonas DNA Trichomonas DNA Probe 80226088 913.2340 ([facility]) NOTES See Note None Note: PICKARD:IN OTHER NAME IN MEDICAL RECORD Reviewed on 08/11/2020; All test result s are final unless otherwise noted. Reported Physicians [facility] Ordered by Cat Gutierrez RPA on 08/09/2020 Collected: 08/09/2020 Reported: 08/11/2020 06:52 Reported Physicians See Note None Note: Reported Physicians:Ordering: Attchandler barton: Rigo Gutierrez To: Maya Barron Reviewed on 08/11/2020; All test result s are final unless otherwise noted. ADD ON MICROSCOPIC [facility] Ordered by Cat Gutierrez RPA on 08/09/2020 Collected: 08/09/2020 Reported: 08/09/2020 12:23 ADD ON MICROSCOPIC See Note (0-5) H (High) Note: NOTES OTHER/NOT INTERPRETED Bacteria UrnS Ql Micro SMALL AMOUNT Bacteria UrnS Ql Micro SMALL AMOUNT Bacteria UrnS Ql Micro L Bacteria UrnS Ql Micro Bacteria UrnS Ql Micro Bacteria UrnS Ql Micro Bacteria UrnS Ql Micro [id number] Bacteria UrnS Ql Micro Bacteria UrnS Ql [...] Ql Micro Mucous Threads UrnS Ql Micro [id number] Mucous Threads UrnS Ql Micro Mucous Threads UrnS Ql Micro MODERATE AMOUNT WBC # Ur Manual 5-8 @08/09/20 1210: UA W/ MICRO added. RFLXG = UMIC.Method of Collection:: Clean CatchResponsible Observer: WBC WBC 300.5000 (A) Reviewed by Cat Gutierrez RPA on 08/12; All test results are final unless otherwise noted. Reported Physicians [facility] Ordered by Cat Gutierrez RPA on 08/09/2020 Collected: 08/09/2020 Reported: 08/10/2020 17:47 Reported Physicians See Note None Note: Reported Physicians:Ordering: Atte oralia: Rigo Gutierrez To: Maya Barron Reviewed by Cat Gutierrez RPA on 08/12; All test results are final unless otherwise noted. URINALYSIS [facility] Ordered by Cat Gutierrez RPA on 08/09/2020 Collected: 08/09/2020 Reported: 08/09/2020 12:23 Urobilinogen Ur Ql See Note (0.2-1 EU/dl) None Note: 1 EU/dl1 EU/[id number] EU/dlRe sponsible Observer: UROBILINOGEN UROBILINOGEN 300.4500 (C) RBC # Ur Strip NEGATIVE (NEGATIVE) None Note: Responsible Observer: BLOOD BLOOD 300.4650 (C) Prot Ur Ql Strip See Note (NEGATIVE) None Note: [id number] ble Observer: PROTEIN PROTEIN 300.3750 (C) Ketones Ur Ql Strip See Note (NEGATIVE) None Note: [id number] ble Observer: KETONE KETONE 300.3900 (C) Bilirub Ur Ql Strip.auto See Note (NEGATIVE) None Note: [id number] EResponsible Observer: BILIRUBIN BILIRUBIN 300.4550 (C) Glucose Ur Strip.auto-mCnc NEGATIVE (NEGATIVE) None Note: Responsible Observer: GLUCOSE GLUC OSE 300.3850 (C) Appearance Ur See Note (CLEAR) None Note: CLEARCLEARLCLEARResponsible Observ er: APPEARANCE APPEARANCE 300.3400 (A) Color Ur See Note None Note: DARK YELLOWDARK YELLOWLDARK YELLOW Responsible Observer: COLOR COLOR 300.3300 (A) Leukocyte esterase Ur Ql Strip See Note (NEGATIVE) None Note: [id number]@DO MICR O!!!!Responsible Observer: LEUKOCYTES LEUKOCYTES 300.3575 (C) Nitrite Ur Ql Strip See Note (NEGATIVE) None Note: [id number] EResponsible Observer: NITRITE NITRITE 300.3650 (B) pH Ur Strip 5.0 (5-8) None Note: Responsible Observer: PH PH 300.3 450 (C) Sp Gr Ur Refractometry 1.032 (1.005-1.030) None Note: Responsible Observer: SP GRAVITY U RINE SPECIFIC GRAVITY-MAN 300.3475 (C) URINE MICROSCOPIC ADDED Microscopic Added None Note: Responsible Observer: UA URINE SHAWN ROSCOPIC PENDING 644.3933 (D) NOTES See Note None Note: @08/09/20 1210: UA W/ MICRO added. RFLXG = UMIC.Method of Collection:: Clean Catch Reviewed by Cat Gutierrez RPA on 08/14; All test results are final unless otherwise noted. Urine culture [facility] Ordered by Cat Gutierrez [facility] on 08/09/2020 Collected: 08/09/2020 Reported: 08/10/2020 08:33 Bacteria Ur Cult See Note None Note: NGNo growth.L1NG Reviewed by Cat Gutierrez [facility] on 08/14; All test results are final unless otherwise noted. MEDMATCH [facility] Ordered by Cat Gutierrez [facility] on 08/09/2020 Collected: 08/09/2020 Reported: 08/13/2020 15:56 MEDMATCH See scanned report None Note: Responsible Observer: MEDMATCH MED MATCH 910.56675 ([facility]) Reviewed by Cat Gutierrez RPA on 08/14; All test results are final unless otherwise noted. Reported Physicians [facility] Ordered by Cat Gutierrez [facility] on 08/09/2020 Collected: 08/09/2020 Reported: 08/13/2020 15:56 Reported Physicians See Note None Note: Reported Physicians:Ordering: Jannet barton: Rigo Gutierrez To: Maya Barron Reviewed by Cat Gutierrez [facility] on 08/14; All test results are final unless otherwise noted. HCV RFX ТАТЬЯНА [facility] Ordered by Cat Gutierrez [facility] on 08/09/2020 Collected: 08/09/2020 Reported: 08/10/2020 17:47 HCV Ab Ser Ql See Note (NON-REACTIVE) None Note: XOE-OWWZCWTPICM-[id number] 7NON-REACTIVEResponsible Observer: HEP C ANTIBODY Hepatitis C Antibody [id number] 914.8305 ([facility]) HCV RNA Qualitative (ТАТЬЯНА) 0.54 (<1.00) None Note: HCV antibody was non-reactive. The re is no laboratoryevidence of HCV infection.In most cases, no further action is required. However,if recent HCV exposure is suspected, a test for HCV RNA(test code 81197) is suggested.For additional information please refer tohttp://education.goBramble/faq/BSI24x5(This link is being provided for informational/educational purposes only.)THIS TEST WAS PERFORMED AT:[facility] [address]OSEAS MEANSMDResponsible Observer: SIG TO C/O SIGNAL TO CUTOFF [id number] 914.7778 ([facility]) NOTES See Note None Note: Patient Street Address: [address] [place] [address] [address] City: [facility] State: [facility] Zip Code: [address]Uoehtxv Reviewed by Cat Gutierrez RPA on 08/12; All test results are final unless otherwise noted. Reported Physicians [facility] Ordered by Cat Gutierrez RPA on 08/09/2020 Collected: 08/09/2020 Reported: 08/10/2020 17:47 Reported Physicians See Note None Note: Reported Physicians:Ordering: Atte nding: Cat GutierrezCopy To: Maya Barron Reviewed by Cat Gutierrez RPA on 08/12; All test results are final unless otherwise noted. Type and Screen [facility] Ordered by Cat Gutierrez RPA [...] are final unless otherwise noted. Reported Physicians [facility] Ordered by Cat Gutierrez RPA on 08/09/2020 Collected: 08/09/2020 Reported: 08/09/2020 12:39 Reported Physicians See Note None Note: Reported Physicians:Ordering: Cat ConwayAttending: Cat GutierrezCopyifan To: Maya Barron Reviewed by Cat Gutierrez RPA on 08/10; All test results are final unless otherwise noted. Varicella-Zoster IgG Antibody [facility] Ordered by Cat Gutierrez RPA on 08/09/2020 Collected: 08/09/2020 Reported: 08/10/2020 17:47 VZV IgG Ser [facility] 242.10 None Note: Index Interpr etation --------- [...] Antibody Immunity Screen, ACIF.THIS TEST WAS PERFORMED AT:[facility] [address]RLIVVQ ME RATI,MDResponsible Observer: VARICELLA IGG Varicella-Zoster IgG Antibody [id number] 573.7954 ([facility]) NOTES See Note None Note: Patient Street Address: [address] [place] [address] [place] [facility] Zip Code: [address]Tdhzsju Reviewed by Cat Gutierrez RPA on 08/12; All test results are final unless otherwise noted. CBC [facility] Ordered by Cat Gutierrez RPA [...] Auto See Note (0-2) N (Normal) Note: 0.20.8K28067524684.2Responsible Ob counter server: IG% IG% 100.1375 (B) Hct VFr [...] results are final unless otherwise noted. TSH [facility] Ordered by Cat Gutierrez RPA on 08/09/2020 Collected: 08/09/2020 Reported: 08/09/2020 14:24 TSH SerPl DL<=0.005 mIU/L-aCnc 1.18 MicroInternationalUnitsPerMilliLiter_[Arbitrary_Con (0.35-5. 50) N (Normal) Note: Responsible Observer: TSH TSH 600 .7055 (D) Reviewed by Cat Gutierrez RPA on 08/14; All test results are final unless otherwise noted. Lead (Venous) Wh.Bld [facility] Ordered by Cat Gutierrez RPA on 08/09/2020 Collected: 08/09/2020 Reported: 08/10/2020 17:47 Lead Bld-sCnc <1 (<5) None Note: See Note 1Note 1This test was faith granados and its analytical performancecharacteristics have been determined by [facility]. It has not been cleared or approved [facility]. This assay has been validated pursuant to the CLIAregulations and is used for clinical purposes.THIS TEST WAS PERFORMED AT:[facility] [id number] MERATI,MDResponsible Observer: Lead, WB Lead, Whole Blood [id number] 911.2190 ([facility]) NOTES See Note None Note: Patient Street Address: [address] [place] [address] [address]Patient [place] [facility] Zip Code: [address] Reviewed by Cat Gutierrez RPA on 08/14; All test results are final unless otherwise noted. ncPN REF [facility] Ordered by Cat Gutierrez RPA on 08/09/2020 Collected: 08/09/2020 Reported: 08/13/2020 15:26 T pallidum Ab Ser Ql Aggl See Note (Nonreactive) None Note: [id number] onreactiveResponsible Observer: TP-PA Treponema pallidum Ab (TP-PA) [id number] 908.0286 ([facility]) HIV1 RNA SerPl Ql ТАТЬЯНА+probe See Note None Note: TNPNo Reportable ResultLTNPNo Repo rtable ResultLLEP.LIVENTNPResponsible Observer: HIV 1 RNA, QL T HIV 1 RNA, QL TMA [id number] 908.0254 ([facility]) HBV surface Ag SerPl Ql IA See Note (NON-REACTIVE) None Note: NRS-LQSVGGPJVXQ-[id number]-REACTIVEResponsible Observer: HBSAG Hepatitis B Surface Antigen [id number] 910.2004 ([facility]) RUBV IgG SerPl IA-aCnc 1.76 None Note: Index Interpretatio n ----- <0.90 Not consistent with immunity 0.90-0.99 Equivocal > or = 1.00 Consistent with immunityThe presence of rubella IgG antibody suggestsimmunization or past or current infection withrubella virus.THIS TEST WAS PERFORMED AT:[place] [id number] MERTRISTAR [facility],MDResponsible Observer: Rubella IgG Ab Rubella IgG Ab [id number] 911.2840 ([facility]) HIV1 Ab SerPlBld Ql IA.rapid See Note None Note: TNPNo Reportable ResultLTNPNo Repo rtable ResultLLEP.LIVENTNPResponsible Observer: HIV 1 AB HIV 1 AB [id number] 908.0250 ([facility]) HBsAg Confirmation See Note None Note: TNPNo Reportable ResultLTNPNo Repo rtable ResultLLEP.LIVENTNPResponsible Observer: HBsAg Confirm HBsAg Confirmation [id number] 910.2006 ([facility]) HIV (1&2) Screen, 4th Gen [...] for this purpose.For additional information please refer tohttp://education.goBramble/faq/WNG608(This link is being provided for informational/educational purposes only.)The performance of this assay has not been clinicallyvalidated in patients less than 2 years old.THIS TEST WAS PERFORMED AT:[facility] [id number] MERATI,MDResponsible Observer: HIV ABS HIV (1&2) Screen, 4th Gen [id number] 908.3796 ([facility]) Reviewed by Cat Gutierrez RPA on 08/14; All test results are final unless otherwise noted. Reported Physicians [facility] Ordered by Cat Gutierrez RPA on 08/09/2020 Collected: 08/09/2020 Reported: 08/13/2020 15:27 Reported Physicians See Note None Note: Reported Physicians:Ordering: Atte ndcristiane: Rigo Gutierrez To: Maya Barron Reviewed by Cat Gutierrez RPA on 08/14; All test results are final unless otherwise noted. BHCG, QUANTITATIVE [facility] Ordered by Cat Gutierrez RPA on 08/08/2020 Collected: 08/08/2020 Reported: 08/08/2020 11:53 B-HCG SerPl-aCnc 38148 MilliInternationalUnitsPerMilliLiter_[Arbitrary_Con (0-10) H (High) Note: @Instrument will [...] are final unless otherwise noted. Reported Physicians [facility] Ordered by Cat Gutierrez RPA on 08/08/2020 Collected: 08/08/2020 Reported: 08/08/2020 11:54 Reported Physicians See Note None Note: Reported Physicians:Ordering: Atte oralia: Rigo Gutierrez To: Maya Barron Reviewed by Cat Gutierrez RPA on 08/08; All test results are final unless otherwise noted. CBC W AUTO DIFF [facility] Ordered by Cat Gutierrez RPA [...] Auto See Note (0-2) N (Normal) Note: [id number] Ob counter server: IG% IG% 100.1375 (B) Hct VFr [...] test results are final unless otherwise noted. [facility] Ordered by Cat Gutierrez RPA on [...] are final unless otherwise noted. Reported Physicians [facility] Ordered by Cat Gutierrez RPA on 08/01/2020 Collected: 08/01/2020 Reported: 08/01/2020 02:26 Reported Physicians See Note None Note: Reported Physicians:Ordering: Aj Ferreiraending: Jos Rivas To: Maya Barron Reviewed by Cat Gutierrez RPA on 08/01; All test results are final unless otherwise noted. Type and Screen [facility] Ordered by Cat Gutierrez RPA [...] are final unless otherwise noted. Reported Physicians [facility] Ordered by Cat Gutierrez RPA on 08/01/2020 Collected: 08/01/2020 Reported: 08/01/2020 06:03 Reported Physicians See Note None Note: Reported Physicians:Ordering: Aj Ferreiraending: oJs Rivas To: Maya Barron Reviewed by Cat Gutierrez RPA on 08/01; All test results are final unless otherwise noted. BHCG, QUANTITATIVE [facility] Ordered by Cat Gutierrez RPA on 08/01/2020 Collected: 08/01/2020 Reported: 08/01/2020 02:26 B-HCG [facility] [address] MilliInternationalUnitsPerMilliLiter_[Arbitrary_Con (0-10) H (High) Note: @Instrument will [...] are final unless otherwise noted. Reported Physicians [facility] Ordered by Cat Gutierrez RPA on 08/01/2020 Collected: 08/01/2020 Reported: 08/01/2020 02:26 Reported Physicians See Note None Note: Reported Physicians:Ordering: Aj Ferreiraending: Jos Rivas To: Maya Barron Reviewed by Cat Gutierrez RPA on 08/01; All test results are final unless otherwise noted. ADD ON MICROSCOPIC [facility] Ordered by Cat Gutierrez RPA on 08/01/2020 Collected: 08/01/2020 Reported: 08/01/2020 01:01 ADD ON MICROSCOPIC See Note (0-5) None Note: NOTES OTHER/NOT INTERPRETED Bacteria UrnS Ql Micro MODERATE AMOUNT Bacteria UrnS Ql Micro MODERATE AMOUNT Bacteria UrnS Ql Micro L Bacteria UrnS Ql Micro Bacteria UrnS Ql Micro Bacteria UrnS Ql Micro Bacteria UrnS Ql Micro [id number] Bacteria UrnS Ql Micro Bacteria UrnS Ql [...] are final unless otherwise noted. Reported Physicians [facility] Ordered by Cat Gutierrez RPA on 08/01/2020 Collected: 08/01/2020 Reported: 08/01/2020 01:01 Reported Physicians See Note None Note: Reported Physicians:Ordering: Aj Ferreiraending: Jos Rivas To: Maya Barron Reviewed by Cat Gutierrez RPA on 08/01; All test results are final unless otherwise noted. UA W/ CULTURE IF ABNORMAL [facility] Ordered by Cat Gutierrez RPA on 08/01/2020 Collected: 08/01/2020 Reported: 08/01/2020 01:01 Urobilinogen Ur Ql See Note (0.2-1 EU/dl) None Note: 0.2 EU/dl0.2 EU/[id number] E U/dlResponsible Observer: UROBILINOGEN UROBILINOGEN 300.4500 (C) RBC # Ur Strip SMALL (NEGATIVE) None Note: @DO MICRO!!!!Responsible Observer: BLOOD BLOOD 300.4652 (C) Prot Ur Ql Strip See Note (NEGATIVE) None Note: [id number] EResponsible Observer: PROTEIN PROTEIN 300.3750 (C) Ketones Ur Ql Strip See Note (NEGATIVE) None Note: 15 mg/dL15 mg/pUE304511288345 mg/d LResponsible Observer: KETONE KETONE 300.3900 (C) Bilirub Ur Ql Strip.auto See Note (NEGATIVE) None Note: [id number] EResponsible Observer: BILIRUBIN BILIRUBIN 300.4550 (C) Glucose Ur Strip.auto-mCnc NEGATIVE (NEGATIVE) None Note: Responsible Observer: GLUCOSE GLUC OSE 300.3850 (C) Appearance Ur See Note (CLEAR) None Note: CLEARCLEARLCLEARResponsible Observ er: APPEARANCE APPEARANCE 300.3400 (A) Color Ur See Note None Note: YELLOWYELLOWLYELLOWResponsible Obs erver: COLOR COLOR 300.3330 (A) Leukocyte esterase Ur Ql Strip See Note (NEGATIVE) None Note: [id number]@DO MICR O!!!!A Culture has been added to this specimen per established criteriaResponsible Observer: LEUKOCYTES LEUKOCYTES 300.3576 (C) Nitrite Ur Ql Strip See Note (NEGATIVE) None Note: [id number] EResponsible Observer: NITRITE NITRITE 300.3652 (B) pH [...] are final unless otherwise noted. Urine culture [facility] Ordered by Cat Gutierrez RPA on 08/01/2020 Collected: 08/01/2020 Reported: 08/02/2020 07:41 Urine culture result See Note None Note: Greater than 100,000 CFU/MLLactoba cilli no senst done NOTES See Note None Note: @08/01/20 0101: Urine culture adde d. RFLXG = CULT.ADD. Reviewed by Cat Gutierrez RPA on 08/02; All test results are final unless otherwise noted. Reported Physicians [facility] Ordered by Cat Gutierrez RPA on 08/01/2020 Collected: 08/01/2020 Reported: 08/02/2020 07:41 Reported Physicians See Note None Note: Reported Physicians:Ordering: Aj Ferreiraending: Jos Rivas To: Maya Barron Reviewed by Cat Gutierrez RPA on 08/02; All test results are final unless otherwise noted. BHCG, QUANTITATIVE [facility] Ordered by Cat Gutierrez RPA on 07/31/2020 Collected: 07/31/2020 Reported: 07/31/2020 16:[address] [facility] [address] MilliInternationalUnitsPerMilliLiter_[Arbitrary_Con (0-10) H (High) Note: @Instrument will [...] are final unless otherwise noted. Reported Physicians [facility] Ordered by Cat Gutierrez RPA on 07/31/2020 Collected: 07/31/2020 Reported: 07/31/2020 16:53 Reported Physicians See Note None Note: Reported Physicians:Ordering: Atte oralia: Cat Gutierrez Reviewed by Cat Gutierrez RPA on 08/01; All test results are final unless otherwise noted. UA W/ CULTURE IF ABNORMAL [facility] Ordered by Cat Gutierrez RPA on 07/27/2020 Collected: 07/27/2020 Reported: 07/27/2020 21:36 Urobilinogen Ur Ql See Note (0.2-1 EU/dl) None Note: 0.2 EU/dl0.2 EU/[id number] E U/dlResponsible Observer: UROBILINOGEN UROBILINOGEN 300.4500 (C) RBC # Ur Strip NEGATIVE (NEGATIVE) None Note: Responsible Observer: BLOOD BLOOD 300.4652 (C) Prot Ur Ql Strip See Note (NEGATIVE) None Note: [id number] EResponsible Observer: PROTEIN PROTEIN 300.3750 (C) Ketones Ur Ql Strip See Note (NEGATIVE) None Note: [id number] EResponsible Observer: KETONE KETONE 300.3900 (C) Bilirub Ur Ql Strip.auto See Note (NEGATIVE) None Note: [id number] EResponsible Observer: BILIRUBIN BILIRUBIN 300.4550 (C) Glucose Ur Strip.auto-mCnc NEGATIVE (NEGATIVE) None Note: Responsible Observer: GLUCOSE GLUC OSE 300.3850 (C) Appearance Ur See Note (CLEAR) None Note: CLEARCLEARLCLEARResponsible Observ er: APPEARANCE APPEARANCE 300.3400 (A) Color Ur See Note None Note: YELLOWYELLOWLYELLOWResponsible Obs erver: COLOR COLOR 300.3330 (A) Leukocyte esterase Ur Ql Strip See Note (NEGATIVE) None Note: [id number]@DO MICR O!!!!A Culture has been added to this specimen per established criteriaResponsible Observer: LEUKOCYTES LEUKOCYTES 300.3576 (C) Nitrite Ur Ql Strip See Note (NEGATIVE) None Note: [id number] EResponsible Observer: NITRITE NITRITE 300.3652 (B) pH [...] of Collection:: Voided Reviewed by Cat Gutierrez [facility] on 07/31; All test results are final unless otherwise noted. Urine culture [facility] Ordered by Cat [facility] on 07/27/2020 Collected: 07/27/2020 Reported: 07/29/2020 07:36 Urine culture result 50,000 CFU/ML Lactobacilli no senst done None NOTES See Note None Note: @07/27/202136: Urine culture adde d. RFLXG = CULT.ADD. Reviewed by Cat [facility] on 07/31; All test results are final unless otherwise noted. Reported Physicians [facility] Ordered by Cat [facility] on 07/27/2020 Collected: 07/27/2020 Reported: 07/29/2020 07:37 Reported Physicians See Note None Note: Reported Physicians:Ordering: Daquan BustamanteAttending: Ariella Good To: Maya Barron Reviewed by Cat [facility] on 07/31; All test results are final unless otherwise noted. ADD ON MICROSCOPIC [facility] Ordered by [facility] on 07/27/2020 Collected: 07/27/2020 Reported: 07/27/2020 21:36 ADD ON MICROSCOPIC See Note (0-5) None Note: NOTES OTHER/NOT INTERPRETED Bacteria UrnS Ql Micro SMALL AMOUNT Bacteria UrnS Ql Micro SMALL AMOUNT Bacteria UrnS Ql Micro L Bacteria UrnS Ql Micro Bacteria UrnS Ql Micro Bacteria UrnS Ql Micro Bacteria UrnS Ql Micro [id number] Bacteria UrnS Ql Micro Bacteria UrnS Ql [...] are final unless otherwise noted. Reported Physicians [facility] Ordered by Cat Gutierrez RPA on 07/27/2020 Collected: 07/27/2020 Reported: 07/27/2020 21:37 Reported Physicians See Note None Note: Reported Physicians:Ordering: Daquan BustamanteAttending: Daquan GoodCopyifan To: Maya Barron Reviewed by Cat Gutierrez RPA on 07/28; All test results are final unless otherwise noted. CMP [facility] Ordered by Cat Gutierrez RPA [...] are final unless otherwise noted. Reported Physicians [facility] Ordered by Cat Gutierrez RPA on 07/27/2020 Collected: 07/27/2020 Reported: 07/27/2020 20:37 Reported Physicians See Note None Note: Reported Physicians:Ordering: Daquan BustamanteAttending: Daquan GoodCopyifan To: Maya Barron Reviewed by Cat Gutierrez RPA on 07/28; All test results are final unless otherwise noted. Type and Screen [facility] Ordered by Cat Gutierrez RPA [...] are final unless otherwise noted. Reported Physicians [facility] Ordered by Cat Gutierrez RPA on 07/27/2020 Collected: 07/27/2020 Reported: 07/27/2020 20:48 Reported Physicians See Note None Note: Reported Physicians:Ordering: Daquan BustamanteAttending: Carmina GoodisalCopy To: Maya Barron Reviewed by Cat Gutierrez RPA on 07/28; All test results are final unless otherwise noted. CBC W AUTO DIFF [facility] Ordered by Cat Gutierrez RPA [...] Auto See Note (0-2) N (Normal) Note: [id number] Ob counter server: IG% IG% 100.1375 (B) Hct VFr [...] NRBC% 100.1360 (B) Reviewed by Cat Gutierrez [facility] on 07/28; All test results are final unless otherwise noted. Reported Physicians [facility] Ordered by Cat [facility] on 07/27/2020 Collected: 07/27/2020 Reported: 07/27/2020 20:11 Reported Physicians See Note None Note: Reported Physicians:Ordering: Carmina BustamanteisalAttending: Carmina GoodisalCopy To: Maya Barron Reviewed by [facility] on 07/28; All test results are final unless otherwise noted. [facility] Ordered by [facility] on 07/27/2020 Collected: 07/27/2020 Reported: 07/27/2020 22:08 [facility] [address] MilliInternationalUnitsPerMilliLiter_[Arbitrary_Con (0-10) H (High) Note: [...] QUANTITATIVE 600.5006 (G) Reviewed by Cat Gutierrez [facility] on 07/28; All test results are final unless otherwise noted. Reported Physicians [facility] Ordered by [facility] on 07/27/2020 Collected: 07/27/2020 Reported: 07/27/2020 22:08 Reported Physicians See Note None Note: Reported Physicians:Ordering: Carmina BustamanteisalAttending: Ariella Good To: Maya Barron Reviewed by [facility] on 07/28; All test results are final unless otherwise noted. [facility] Ordered by Maya Barron MD on 07/26/2020 Collected: 07/26/2020 Reported: 07/26/2020 16:48 B-HCG [facility] 4155 MilliInternationalUnitsPerMilliLiter_[Arbitrary_Con (0-10) H (High) Note: [...] are final unless otherwise noted. Reported Physicians [facility] Ordered by Maya Barron MD on 07/26/2020 Collected: 07/26/2020 Reported: 07/26/2020 16:48 Reported Physicians See Note None Note: Reported Physicians:Ordering: Maya AlvarengaAttending: Maya Barron Reviewed by Maya Barron MD on 07/27; All test results are final unless otherwise noted. Sweta Raquel SARS/FLU [facility] Ordered by Bandar Cleveland PA-C on 07/25/2020 Collected: 07/25/2020 Reported: 07/25/2020 18:47 Sweta Raquel SARS/FLU See Note None Note: Sweta Raquel is a rapid, automated q ualitative anddifferentiation of Influenza type A,B and OMIA-KIY-5RZHY-RT-PCR testNORMAL VALUE IS "NOT DETECTED".Limitations of the sweta raquel Influenza A/B & DYON-FAQ-7vyyzc method.Modifications to manufacturers recommendation and proceduresmay alter performance of the test.Negative results do not preclude Influenza A,B or SARS- VDZ9detyzawbjw and should not be used as the [...] out diseases caused by other bacterialor viral pathogens.33532-1VTQE-TeR-5 RNA Resp Ql ТАТЬЯНА+probeLNNOSNo O rganisms [id number] Organisms Detected Reviewed by Bandar Cleveland PA-C on ; All test results are final unless otherwise noted. Reported Physicians [facility] Ordered by Bandar Cleveland PA-C on 07/25/2020 Collected: 07/25/2020 Reported: 07/25/2020 18:47 Reported Physicians See Note None Note: Reported Physicians:Ordering: Janice Wilsonending: Kami Cleveland To: Health, Public Reviewed by Bandar Cleveland PA-C on ; All test results are final unless otherwise noted. Extended hours FLU/COV2 NAAT [facility] Ordered by Bandar Cleveland PA-C on 07/25/2020 Collected: 07/25/2020 Reported: 07/25/2020 18:47 Extended hours FLU/COV2 NAAT See Note None Note: TNPNo Reportable ResultLTNPNo Repo rtable RlgqhhF5YUJ Reviewed by Bandar Cleveland PA-C on ; All test results are final unless otherwise noted. Reported Physicians [facility] Ordered by Bandar Cleveland PA-C on 07/25/2020 Collected: 07/25/2020 Reported: 07/25/2020 18:47 Reported Physicians See Note None Note: Reported Physicians:Ordering: Janice Wilsonending: Kami Cleveland To: Health, Public Reviewed by Bandar Cleveland PA-C on ; All test results are final unless otherwise noted. CBC W AUTO DIFF [facility] Ordered by Myaa Barron MD on 07/22/2020 Collected: 07/22/2020 Reported: [...] Auto See Note (0-2) N (Normal) Note: [id number] Ob counter server: IG% IG% 100.1375 (B) Hct VFr [...] test results are final unless otherwise noted. [facility] Ordered by Maya Barron [...] are final unless otherwise noted. Reported Physicians [facility] Ordered by Maya Barron MD on 07/22/2020 Collected: 07/22/2020 Reported: 07/22/2020 02:00 Reported Physicians See Note None Note: Reported Physicians:Ordering: Hong LandaverdeAttending: Hong DouglasCopyifan To: Maya Barron Reviewed by Maya Barron MD on 07/24; All test results are final unless otherwise noted. Sweta Raquel SARS/FLU [facility] Ordered by Maya Barron MD on 07/22/2020 Collected: 07/22/2020 Reported: 07/22/2020 01:29 Sweta Raquel SARS/FLU See Note None Note: Sweta Raquel is a rapid, automated q ualitative anddifferentiation of Influenza type A,B and GYQH-LML-1DKKF-RT-PCR testNORMAL VALUE IS "NOT DETECTED".Limitations of the sweta raquel Influenza A/B & LZTJ-KBP-7wqwwc method.Modifications to manufacturers recommendation and proceduresmay alter performance of the test.Negative results do not preclude Influenza A,B or SARS- XMI5atjisuzcpm and should not be used as the [...] out diseases caused by other bacterialor viral pathogens.38360-6TFSJ-VlJ-0 RNA Resp Ql ТАТЬЯНА+probeLNNOSNo O rganisms [id number] Organisms Detected Reviewed by Maya Barron MD on 07/24; All test results are final unless otherwise noted. Reported Physicians [facility] Ordered by Maya Barron MD on 07/22/2020 Collected: 07/22/2020 Reported: 07/22/2020 01:29 Reported Physicians See Note None Note: Reported Physicians:Ordering: Hong LandaverdeAttending: Alon Douglas To: Maya Barron Reviewed by Maya Barron MD on 07/24; All test results are final unless otherwise noted. UA W/ CULTURE IF ABNORMAL [facility] Ordered by Maya Barron MD on 07/22/2020 Collected: 07/22/2020 Reported: 07/22/2020 01:10 Urobilinogen Ur Ql See Note (0.2-1 EU/dl) None Note: 0.2 EU/dl0.2 EU/kjW32929822048.2 E U/dlResponsible Observer: UROBILINOGEN UROBILINOGEN 300.4500 (C) RBC # Ur Strip NEGATIVE (NEGATIVE) None Note: Responsible Observer: BLOOD BLOOD 300.4652 (C) Prot Ur Ql Strip See Note (NEGATIVE) None Note: [id number] EResponsible Observer: PROTEIN PROTEIN 300.3750 (C) Ketones Ur Ql Strip See Note (NEGATIVE) None Note: [id number] EResponsible Observer: KETONE KETONE 300.3900 (C) Bilirub Ur Ql Strip.auto See Note (NEGATIVE) None Note: [id number] EResponsible Observer: BILIRUBIN BILIRUBIN 300.4550 (C) Glucose Ur Strip.auto-mCnc NEGATIVE (NEGATIVE) None Note: Responsible Observer: GLUCOSE GLUC OSE 300.3850 (C) Appearance Ur See Note (CLEAR) None Note: CLEARCLEARLCLEARResponsible Observ er: APPEARANCE APPEARANCE 300.3400 (A) Color Ur See Note None Note: YELLOWYELLOWLYELLOWResponsible Obs erver: COLOR COLOR 300.3330 (A) Leukocyte esterase Ur Ql Strip See Note (NEGATIVE) None Note: [id number] EResponsible Observer: LEUKOCYTES LEUKOCYTES 300.3576 (C) Nitrite Ur Ql Strip See Note (NEGATIVE) None Note: [id number] EResponsible Observer: NITRITE NITRITE 300.3652 (B) pH [...] are final unless otherwise noted. Reported Physicians [facility] Ordered by Maya Barron MD on 07/22/2020 Collected: 07/22/2020 Reported: 07/22/2020 01:11 Reported Physicians See Note None Note: Reported Physicians:Ordering: Hong LandaverdeAttending: Alon Douglas To: Maya Barron Reviewed by Maya Barron MD on 07/24; All test results are final unless otherwise noted. Extended hours FLU/COV2 NAAT [facility] Ordered by Maya Barron MD on 07/22/2020 Collected: 07/22/2020 Reported: 07/22/2020 01:29 Extended hours FLU/COV2 NAAT See Note None Note: TNPNo Reportable ResultLTNPNo Repo rtable [id number] Reviewed by Maya Barron MD on 07/24; All test results are final unless otherwise noted. Reported Physicians [facility] Ordered by Maya Barron MD on 07/22/2020 Collected: 07/22/2020 Reported: 07/22/2020 01:29 Reported Physicians See Note None Note: Reported Physicians:Ordering: Hong LandaverdeAttending: Alon Douglas To: Maya Barron Reviewed by Maya Barron MD on 07/24; All test results are final unless otherwise noted. Urine culture [facility] Ordered by Maya Barron MD on 07/19/2020 Collected: 07/19/2020 Reported: 07/21/2020 07:48 Bacteria Ur Cult See Note None Note: NGNo growth.L1NG Reviewed by Maya Barron MD on 07/21; All test results are final unless otherwise noted. Reported Physicians [facility] Ordered by Maya Barron MD on 07/19/2020 Collected: 07/19/2020 Reported: 07/21/2020 07:49 Reported Physicians See Note None Note: Reported Physicians:Ordering: Maya AlvarengaAttending: Maya Barron Reviewed by Maya Barron MD on 07/21; All test results are final unless otherwise noted. BHCG, QUANTITATIVE [facility] Ordered by Maya Barron MD [...] are final unless otherwise noted. Reported Physicians [facility] Ordered by Maya Barron MD on 07/17/2020 Collected: 07/17/2020 Reported: 07/17/2020 12:40 Reported Physicians See Note None Note: Reported Physicians:Ordering: Mariela AlvarengaynAttending: Maya Barron Reviewed by Maya Barron MD on 07/17; All test results are final unless otherwise noted. [employer] [facility] Ordered by Maya Barron MD [...] molecular test, if the virus mutates in [facility] region, Covid-19 may not be detected or may bedetected less predictably.ID NOW COVID-19 is intended for testing a swab directlywithout elution in viral transport media as dilution willresult in decreased detection of low positive samples thatare near the limit of detection of the test.SWAB SAMPLES ELUTED IN VTM ARE NOT APPROPRIATE FOR USE INTHIS TEST.NOSNo Organisms [id number] Organisms Detected Reviewed by Maya Barron MD on 05/31; All test results are final unless otherwise noted. Reported Physicians [facility] Ordered by Maya Barron MD on 05/31/2020 Collected: 05/31/2020 Reported: 05/31/2020 07:08 Reported Physicians See Note None Note: Reported Physicians:Ordering: Johnny HernándezAttending: Johnny CazaresCopyifan To: Maya Barron Reviewed by Maya Barron MD on 05/31; All test results are final unless otherwise noted. BHCG, QUANTITATIVE [facility] Ordered by Maya Barron MD on 05/26/2020 Collected: 05/26/2020 Reported: 05/26/2020 14:49 [facility] [address] MilliInternationalUnitsPerMilliLiter_[Arbitrary_Con (0-10) H (High) Note: @Instrument will [...] are final unless otherwise noted. Reported Physicians [facility] Ordered by Maya Barron MD on 05/26/2020 Collected: 05/26/2020 Reported: 05/26/2020 14:50 Reported Physicians See Note None Note: Reported Physicians:Ordering: Maya AlvarengaAttending: Maya Barron Reviewed by Maya Barron MD on 05/26; All test results are final unless otherwise noted. URINALYSIS [facility] Ordered by Maya Barron MD on 05/23/2020 Collected: 05/23/2020 Reported: 05/23/2020 17:19 Urobilinogen Ur Ql See Note (0.2-1 EU/dl) None Note: 0.2 EU/dl0.2 EU/[id number] E U/dlResponsible Observer: UROBILINOGEN UROBILINOGEN 300.4500 (C) RBC # Ur Strip NEGATIVE (NEGATIVE) None Note: Responsible Observer: BLOOD BLOOD 300.4650 (C) Prot Ur Ql Strip See Note (NEGATIVE) None Note: [id number] EResponsible Observer: PROTEIN PROTEIN 300.3750 (C) Ketones Ur Ql Strip See Note (NEGATIVE) None Note: [id number] EResponsible Observer: KETONE KETONE 300.3900 (C) Bilirub Ur Ql Strip.auto See Note (NEGATIVE) None Note: [id number] EResponsible Observer: BILIRUBIN BILIRUBIN 300.4550 (C) Glucose Ur Strip.auto-mCnc NEGATIVE (NEGATIVE) None Note: Responsible Observer: GLUCOSE GLUC OSE 300.3850 (C) Appearance Ur See Note (CLEAR) None Note: CLEARCLEARLCLEARResponsible Observ er: APPEARANCE APPEARANCE 300.3400 (A) Color Ur See Note None Note: YELLOWYELLOWLYELLOWResponsible Obs erver: COLOR COLOR 300.3300 (A) Leukocyte esterase Ur Ql Strip See Note (NEGATIVE) None Note: [id number] EResponsible Observer: LEUKOCYTES LEUKOCYTES 300.3575 (C) Nitrite Ur Ql Strip See Note (NEGATIVE) None Note: [id number] EResponsible Observer: NITRITE NITRITE 300.3650 (B) pH [...] are final unless otherwise noted. Urine culture [facility] Ordered by Maya Barron MD on 05/23/2020 Collected: 05/23/2020 Reported: 05/24/2020 09:24 Bacteria Ur Cult See Note None Note: NGNo growth.L1NG Reviewed by Maya Barron MD on 05/29; All test results are final unless otherwise noted. MEDMATCH [facility] Ordered by Maya Barron MD on 05/23/2020 Collected: 05/23/2020 Reported: 05/26/2020 17:09 MEDMATCH 1.000 (> or = 1.003) None Note: Responsible Observer: MEDMATCH MED MATCH 910.95442 ([facility]) Reviewed by Maya Barron MD on 05/29; All test results are final unless otherwise noted. Reported Physicians [facility] Ordered by Maya Barron MD on 05/23/2020 Collected: 05/23/2020 Reported: 05/26/2020 17:09 Reported Physicians See Note None Note: Reported Physicians:Ordering: Maya AlvarengaAttending: Maya Barron Reviewed by Maya Barron MD on 05/29; All test results are final unless otherwise noted. Varicella-Zoster IgG Antibody [facility] Ordered by Maya Barron MD [...] Antibody Immunity Screen, ACIF.THIS TEST WAS PERFORMED AT:[facility] [address]EAHANJ ME RATI,MDResponsible Observer: VARICELLA IGG Varicella-Zoster IgG Antibody [id number] 747.2718 ([facility]) NOTES See Note None Note: Patient Street Address[facility] [address] [facility] [place] [place] [facility] Zip Code: [address] Reviewed by Maya Barron MD on 05/26; All test results are final unless otherwise noted. Reported Physicians [facility] Ordered by Maya Barron MD on 05/23/2020 Collected: 05/23/2020 Reported: 05/25/2020 17:11 Reported Physicians See Note None Note: Reported Physicians:Ordering: Maya AlvarengaAttending: Maya Barron Reviewed by Maya Barron MD on 05/26; All test results are final unless otherwise noted. CBC [facility] Ordered by Maya Barron MD [...] Auto See Note (0-2) N (Normal) Note: [id number] Ob counter server: IG% IG% 100.1375 (B) Hct VFr [...] results are final unless otherwise noted. TSH [facility] Ordered by Maya Barron MD on 05/23/2020 Collected: 05/23/2020 Reported: 05/23/2020 18:38 TSH SerPl DL<=0.005 mIU/L-aCnc 1.87 MicroInternationalUnitsPerMilliLiter_[Arbitrary_Con (0.35-5. 50) N (Normal) Note: Responsible Observer: TSH TSH 600 .7055 (D) Reviewed by Maya Barron MD on 05/29; All test results are final unless otherwise noted. Lead (Venous) Wh.Bld [facility] Ordered by Maya Barron MD on 05/23/2020 Collected: 05/23/2020 Reported: 05/25/2020 17:11 Lead Bld-sCnc <1 (<5) None Note: See Note 1Note 1This test was faith granados and its analytical performancecharacteristics have been determined by [employer]. It has not been cleared or approved by theA. This assay has been validated pursuant to the CLIAregulations and is used for clinical purposes.THIS TEST WAS PERFORMED AT:[facility] [address]EVXJPV MERATI,MDResponsible Observer: Lead, WB Lead, Whole Blood [id number] 911.2190 ([facility]) NOTES See Note None Note: Patient Street Address: [facility] [address] City: [place]: [place]: [address] Reviewed by Maya Barron MD on 05/29; All test results are final unless otherwise noted. ncPN REF [facility] Ordered by Maya Barron MD on 05/23/2020 Collected: 05/23/2020 Reported: 05/27/2020 20:54 T pallidum Ab Ser Ql Aggl See Note (Nonreactive) None Note: [id number] onreactiveResponsible Observer: TP-PA Treponema pallidum Ab (TP-PA) [id number] 908.0286 ([facility]) HIV1 RNA SerPl Ql ТАТЬЯНА+probe See Note None Note: TNPNo Reportable ResultLTNPNo Repo rtable ResultLLEP.LIVENTNPResponsible Observer: HIV 1 RNA, QL T HIV 1 RNA, QL TMA [id number] 908.0254 ([facility]) HBV surface Ag SerPl Ql IA See Note (NON-REACTIVE) None Note: [id number]-REACTIVEResponsible Observer: HBSAG Hepatitis B Surface Antigen [id number] 910.2004 ([facility]) RUBV IgG SerPl IA-aCnc 1.80 None Note: Index Interpretatio n ----- <0.90 Not consistent with Immunity 0.90-0.99 Equivocal > or = 1.00 Consistent with ImmunityThe presence of rubella IgG antibody suggestsimmunization or past or current infection withrubella virus.THIS TEST WAS PERFORMED AT:[facility] [address]YCFAVP MERATI,MDResponsible Observer: Rubella IgG Ab Rubella IgG Ab [id number] 911.2840 ([facility]) HIV1 Ab SerPlBld Ql IA.rapid See Note None Note: TNPNo Reportable ResultLTNPNo Repo rtable ResultLLEP.LIVENTNPResponsible Observer: HIV 1 AB HIV 1 AB [id number] 908.0250 ([facility]) HBsAg Confirmation See Note None Note: TNPNo Reportable ResultLTNPNo Repo rtable ResultLLEP.LIVENTNPResponsible Observer: HBsAg Confirm HBsAg Confirmation [id number] 910.2006 ([facility]) HIV (1&2) Screen, 4th Gen [...] for this purpose.For additional information please refer tohttp://education.[employer]EX[employer] Media/faq/BAJ065(This link is being provided for informational/educational purposes only.)The performance of this assay has not been clinicallyvalidated in patients less than 2 years old.Responsible Observer: HIV ABS HIV (1&2) Screen, 4th Gen [id number] 908.0228 (I) Reviewed by Maya Barron MD on 05/29; All test results are final unless otherwise noted. Reported Physicians [facility] Ordered by Maya Barron MD on 05/23/2020 Collected: 05/23/2020 Reported: 05/27/2020 20:54 Reported Physicians See Note None Note: Reported Physicians:Ordering: Cara Alvarengaending: Maya Barron Reviewed by Maya Barron MD on 05/29; All test results are final unless otherwise noted. HCV RFX ТАТЬЯНА [facility] Ordered by Maya Barron MD on 05/23/2020 Collected: 05/23/2020 Reported: 05/25/2020 17:11 HCV Ab Ser Ql See Note (NON-REACTIVE) None Note: [id number] 7NON-REACTIVEResponsible Observer: HEP C ANTIBODY Hepatitis C Antibody [id number] 914.8305 ([facility]) HCV RNA Qualitative (ТАТЬЯНА) 0.59 (<1.00) None Note: HCV antibody was non-reactive. The re is no laboratoryevidence of HCV infection.In most cases, no further action is required. However,if recent HCV exposure is suspected, a test for HCV RNA(test code 19189) is suggested.For additional information please refer tohttp://education.goBramble/faq/NXU36w5(This link is being provided for informational/educational purposes only.)THIS TEST WAS PERFORMED AT:[facility] [address]KAJUANCHO MEANSMDResponsible Observer: SIG TO C/O SIGNAL TO CUTOFF [id number] 914.8316 ([facility]) NOTES See Note None Note: Patient Street Address: [facility] [address] City: [facility] State: [facility] Zip Code: [address] Reviewed by Maya Barron MD on 05/26; All test results are final unless otherwise noted. Reported Physicians [facility] Ordered by Maya Barron MD on 05/23/2020 Collected: 05/23/2020 Reported: 05/25/2020 17:11 Reported Physicians See Note None Note: Reported Physicians:Ordering: Maya AlvarengaAttending: Maya Barron Reviewed by Maya Barron MD on 05/26; All test results are final unless otherwise noted. Type and Screen [facility] Ordered by Maya Barron MD [...] are final unless otherwise noted. Reported Physicians [facility] Ordered by Maya Barron MD on 05/23/2020 Collected: 05/23/2020 Reported: 05/23/2020 19:32 Reported Physicians See Note None Note: Reported Physicians:Ordering: Maya AlvarengaAttending: Maya Barron Reviewed by Maya Barron MD on 05/24; All test results are final unless otherwise noted. PROGESTERONE [facility] Ordered by Maya Barron MD [...] are final unless otherwise noted. Reported Physicians [facility] Ordered by Maya Barron MD on 04/27/2020 Collected: 04/27/2020 Reported: 04/27/2020 15:58 Reported Physicians See Note None Note: Reported Physicians:Ordering: Johnny HernándezAttending: Jos Castellanos To: Rubén Barron To: Cristino Castellanos Reviewed by Maya Barron MD on 04/30; All test results are final unless otherwise noted. BHCG, QUANTITATIVE [facility] Ordered by Maya Barron MD [...] are final unless otherwise noted. Reported Physicians [facility] Ordered by Maya Barron MD on 04/27/2020 Collected: 04/27/2020 Reported: 04/27/2020 14:40 Reported Physicians See Note None Note: Reported Physicians:Ordering: Cristino SnowAttending: Jos Castellanos To: Suzanne Cazares To: Maya Barron Reviewed by Maya Barron MD on 04/30; All test results are final unless otherwise noted. CBC W AUTO DIFF [facility] Ordered by Maya Barron MD [...] Auto See Note (0-2) N (Normal) Note: [id number] Ob counter server: IG% IG% 100.1375 (B) Hct VFr [...] test results are final unless otherwise noted. [facility] Ordered by Maya Barron MD on [...] are final unless otherwise noted. Reported Physicians [facility] Ordered by Maya Barron MD on 04/25/2020 Collected: 04/25/2020 Reported: 04/25/2020 22:11 Reported Physicians See Note None Note: Reported Physicians:Ordering: Aj Ferreiraending: Jos Rivas To: Maya Barron Reviewed by Maya Barron MD on 04/26; All test results are final unless otherwise noted. BHCG, QUANTITATIVE [facility] Ordered by Maya Barron MD [...] are final unless otherwise noted. Reported Physicians [facility] Ordered by Maya Barron MD on 04/25/2020 Collected: 04/25/2020 Reported: 04/25/2020 22:11 Reported Physicians See Note None Note: Reported Physicians:Ordering: Aj Ferreiraending: Jos Rivas To: Maya Barron Reviewed by Maya Barron MD on 04/26; All test results are final unless otherwise noted. Urine culture [facility] Ordered by Maya Barron MD on 04/25/2020 Collected: 04/25/2020 Reported: 04/27/2020 04:50 Bacteria Ur Cult See Note None Note: NGNo growth.L1NG NOTES See Note None Note: @ NICOLE DATE was changed from 04/26 to 04/25/20@ by POMCY. Reviewed by Maya Barron MD on 04/30; All test results are final unless otherwise noted. Reported Physicians [facility] Ordered by Maya Barron MD on 04/25/2020 Collected: 04/25/2020 Reported: 04/27/2020 04:51 Reported Physicians See Note None Note: Reported Physicians:Ordering: Aj Ferreiraending: Jos Rivas To: Maya Barron Reviewed by Maya Barron MD on 04/30; All test results are final unless otherwise noted. ADD ON MICROSCOPIC [facility] Ordered by Maya Barron MD on 04/25/2020 Collected: 04/25/2020 Reported: 04/25/2020 21:54 ADD ON MICROSCOPIC See Note (0-5) None Note: NOTES OTHER/NOT INTERPRETED Bacteria UrnS Ql Micro SMALL AMOUNT Bacteria UrnS Ql Micro SMALL AMOUNT Bacteria UrnS Ql Micro L Bacteria UrnS Ql Micro Bacteria UrnS Ql Micro Bacteria UrnS Ql Micro Bacteria UrnS Ql Micro [id number] Bacteria UrnS Ql Micro Bacteria UrnS Ql [...] are final unless otherwise noted. Reported Physicians [facility] Ordered by Maya Barron MD on 04/25/2020 Collected: 04/25/2020 Reported: 04/25/2020 21:54 Reported Physicians See Note None Note: Reported Physicians:Ordering: Cristino FerreiraAttending: Cristino RivasCopyifan To: Maya Barron Reviewed by Maya Barron MD on 04/26; All test results are final unless otherwise noted. URINALYSIS [facility] Ordered by Maya Barron MD on 04/25/2020 Collected: 04/25/2020 Reported: 04/25/2020 21:54 Urobilinogen Ur Ql See Note (0.2-1 EU/dl) None Note: 0.2 EU/dl0.2 EU/[id number] E U/dlResponsible Observer: UROBILINOGEN UROBILINOGEN 300.4500 (C) RBC # Ur Strip NEGATIVE (NEGATIVE) None Note: Responsible Observer: BLOOD BLOOD 300.4650 (C) Prot Ur Ql Strip See Note (NEGATIVE) None Note: [id number] EResponsible Observer: PROTEIN PROTEIN 300.3750 (C) Ketones Ur Ql Strip See Note (NEGATIVE) None Note: [id number] EResponsible Observer: KETONE KETONE 300.3900 (C) Bilirub Ur Ql Strip.auto See Note (NEGATIVE) None Note: [id number] EResponsible Observer: BILIRUBIN BILIRUBIN 300.4550 (C) Glucose Ur Strip.auto-mCnc NEGATIVE (NEGATIVE) None Note: Responsible Observer: GLUCOSE GLUC OSE 300.3850 (C) Appearance Ur See Note (CLEAR) None Note: CLEARCLEARLCLEARResponsible Observ er: APPEARANCE APPEARANCE 300.3400 (A) Color Ur See Note None Note: YELLOWYELLOWLYELLOWResponsible Obs erver: COLOR COLOR 300.3300 (A) Leukocyte esterase Ur Ql Strip See Note (NEGATIVE) None Note: [id number]@DO MICR O!!!!Responsible Observer: LEUKOCYTES LEUKOCYTES 300.3575 (C) Nitrite Ur Ql Strip See Note (NEGATIVE) None Note: [id number] EResponsible Observer: NITRITE NITRITE 300.3650 (B) pH [...] are final unless otherwise noted. Reported Physicians [facility] Ordered by Maya Barron MD on 04/25/2020 Collected: 04/25/2020 Reported: 04/25/2020 21:54 Reported Physicians See Note None Note: Reported Physicians:Ordering: Aj Ferreiraending: Jos Rivas To: aMya Barron Reviewed by Maya Barron MD on 04/26; All test results are final unless otherwise noted. BHCG, QUANTITATIVE [facility] Ordered by Maya Barron MD [...] are final unless otherwise noted. Reported Physicians [facility] Ordered by Maya Barron MD on 04/18/2020 Collected: 04/18/2020 Reported: 04/18/2020 15:11 Reported Physicians See Note None Note: Reported Physicians:Ordering: Cara Alvarengaending: Maya Barron Reviewed by Maya Barron MD on 04/19; All test results are final unless otherwise noted. ADD ON MICROSCOPIC [facility] Ordered by Maya Barron MD on 04/16/2020 Collected: 04/16/2020 Reported: 04/16/2020 23:51 ADD ON MICROSCOPIC See Note (0-5) None Note: NOTES OTHER/NOT INTERPRETED Bacteria UrnS Ql Micro SMALL AMOUNT Bacteria UrnS Ql Micro SMALL AMOUNT Bacteria UrnS Ql Micro L Bacteria UrnS Ql Micro Bacteria UrnS Ql Micro Bacteria UrnS Ql Micro Bacteria UrnS Ql Micro [id number] Bacteria UrnS Ql Micro Bacteria UrnS Ql [...] are final unless otherwise noted. Reported Physicians [facility] Ordered by Maya Barron MD on 04/16/2020 Collected: 04/16/2020 Reported: 04/16/2020 23:52 Reported Physicians See Note None Note: Reported Physicians:Ordering: Randy Joseending: Alix Jose To: Maya Barron Reviewed by Maya Barron MD on 04/17; All test results are final unless otherwise noted. UA W/ CULTURE IF ABNORMAL [facility] Ordered by Maya Barron MD on 04/16/2020 Collected: 04/16/2020 Reported: 04/16/2020 23:51 Urobilinogen Ur Ql See Note (0.2-1 EU/dl) None Note: 0.2 EU/dl0.2 EU/[id number] E U/dlResponsible Observer: UROBILINOGEN UROBILINOGEN 300.4500 (C) RBC # Ur Strip NEGATIVE (NEGATIVE) None Note: Responsible Observer: BLOOD BLOOD 300.4652 (C) Prot Ur Ql Strip See Note (NEGATIVE) None Note: [id number] EResponsible Observer: PROTEIN PROTEIN 300.3750 (C) Ketones Ur Ql Strip See Note (NEGATIVE) None Note: [id number] ble Observer: KETONE KETONE 300.3900 (C) Bilirub Ur Ql Strip.auto See Note (NEGATIVE) None Note: [id number] EResponsible Observer: BILIRUBIN BILIRUBIN 300.4550 (C) Glucose Ur Strip.auto-mCnc NEGATIVE (NEGATIVE) None Note: Responsible Observer: GLUCOSE GLUC OSE 300.3850 (C) Appearance Ur See Note (CLEAR) None Note: CLEARCLEARLCLEARResponsible Observ er: APPEARANCE APPEARANCE 300.3400 (A) Color Ur See Note None Note: YELLOWYELLOWLYELLOWResponsible Obs erver: COLOR COLOR 300.3330 (A) Leukocyte esterase Ur Ql Strip See Note (NEGATIVE) None Note: [id number] E@DO MICRO!!!!A Culture has been added to this specimen per established criteriaResponsible Observer: LEUKOCYTES LEUKOCYTES 300.3576 (C) Nitrite Ur Ql Strip See Note (NEGATIVE) None Note: [id number] EResponsible Observer: NITRITE NITRITE 300.3652 (B) pH [...] are final unless otherwise noted. Urine culture [facility] Ordered by Maya Barron MD on 04/16/2020 Collected: 04/16/2020 Reported: 04/18/2020 06:47 Urine culture result See Note None Note: Less than 10,000 CFU/MLNormal Comm ensal FloraProbable contaminants no senst done NOTES See Note None Note: @04/16/201: Urine culture adde d. RFLXG = CULT.ADD. Reviewed by Maya Barron MD on 04/18; All test results are final unless otherwise noted. Reported Physicians [facility] Ordered by Maya Barron MD on 04/16/2020 Collected: 04/16/2020 Reported: 04/18/2020 06:47 Reported Physicians See Note None Note: Reported Physicians:Ordering: Damon , VinodAttending: Damon, VinodCopy To: Maya Barron Reviewed by Maya Barron MD on 04/18; All test results are final unless otherwise noted. CBC W AUTO DIFF [facility] Ordered by Maya Barron MD [...] Auto See Note (0-2) N (Normal) Note: [id number] Ob counter server: IG% IG% 100.1375 (B) Hct VFr [...] results are final unless otherwise noted. BHCG, [facility] Ordered by Maya Barron MD [...] are final unless otherwise noted. Reported Physicians [facility] Ordered by Maya Barron MD on 04/16/2020 Collected: 04/16/2020 Reported: 04/16/2020 22:47 Reported Physicians See Note None Note: Reported Physicians:Ordering: Damon , VinodAttending: Damon, VinodCopy To: Maya Barron Reviewed by Maya Barron MD on 04/17; All test results are final unless otherwise noted. CMP [facility] Ordered by Maya Barron MD [...] are final unless otherwise noted. Reported Physicians [facility] Ordered by Maya Barron MD on 04/16/2020 Collected: 04/16/2020 Reported: 04/16/2020 22:44 Reported Physicians See Note None Note: Reported Physicians:Ordering: Damon , VinodAttending: Damon, VinodCopy To: Maya Barron Reviewed by Maya Barron MD on 04/17; All test results are final unless otherwise noted. LIPASE [facility] Ordered by Maya Barron MD on 04/16/2020 Collected: 04/16/2020 Reported: 04/16/2020 22:44 Lipase SerPl-cCnc 107 enzyme_unit_per_liter (73-393) N (Normal) Note: Responsible Observer: Lipase Lipas e 400.2310 (G) Reviewed by Maya Barron MD on 04/17; All test results are final unless otherwise noted. Reported Physicians [facility] Ordered by Maya Barron MD on 04/16/2020 Collected: 04/16/2020 Reported: 04/16/2020 22:44 Reported Physicians See Note None Note: Reported Physicians:Ordering: Damon , VinodAttending: Damon, VinodCopy To: Maya Barron Reviewed by Maya Barron MD on 04/17; All test results are final unless otherwise noted. Type and Screen [facility] Ordered by Maya Barron MD [...] are final unless otherwise noted. Reported Physicians [facility] Ordered by Maya Barron MD on 04/16/2020 Collected: 04/16/2020 Reported: 04/16/2020 23:09 Reported Physicians See Note None Note: Reported Physicians:Ordering: Jose E JoseodAttending: Damon VinodCopy To: Maya Barron Reviewed by Maya Barron MD on 04/17; All test results are final unless otherwise noted. [facility] Ordered by Maya Barron MD on 04/10/[address] [place] [address], [address] Collected: 04/10/2020 Reported: 04/11/2020 11:35 tel : [...] Ordered by Maya Barron MD on 04/10/[address] [place] [address], [address] Collected: 04/10/2020 Reported: 04/11/2020 11:35 tel : [...] by Maya Barron MD on 04/10/2020 [address] [place], [address] Collected: 04/10/2020 Reported: 04/11/2020 11:35 tel : ext. 1500 TSH 1.336 uIu/mL (0.5-5.8) None Note: Responsible Observer: AW Reviewed by Maya Barron MD on 04/12; All test results are final unless otherwise noted. -[facility] Ordered by Maya Barron MD on 02/25/2020 Collected: 02/25/2020 Reported: 02/28/2020 15:53 C trach rRNA XXX Ql ТАТЬЯНА+probe See Note (NOT DETECTED) None Note: NOT DETECTEDNOT DETECTEDLNOT DETEC TEDNOT [id number] DETECTEDResponsible Observer: C.Trach RNA Chlamydia trachomatis DNA-ТАТЬЯНА 55929513 913.9900 ([facility]) N gonorrhoea rRNA XXX Ql ТАТЬЯНА+probe See Note (NOT DETECTED) None Note: NOT DETECTEDNOT DETECTEDLNOT DETEC TEDNOT [id number] DETECTEDResponsible Observer: GC RNA Neisseria gonorrhoeae DNA -ТАТЬЯНА [id number] 913.9905 ([facility]) Chlamydia/GC DNA Note SEE NOTE None Note: The analytical performance charact eristics of thisassay, when used to test SurePath(TM) specimens have beendetermined by [employer]. The modifications havenot been cleared or approved by the FDA. This assay hasbeen validated pursuant to the CLIA regulations and isused for clinical purposes.For additional information, please refer tohttps://education.[employer]/faq/GUS279(This link is being provided for information/educational purposes only.)THIS TEST WAS PERFORMED AT:[facility] [address]CLAUDY ONEILLesponsible Observer: GC/Chlam Note Chlamydia/GC DNA Note [id number] 913.9907 (A) NOTES See Note None Note: Source Of Specimen: URINE Reviewed by Maya Barron MD on 02/28; All test results are final unless otherwise noted. Reported Physicians [facility] Ordered by Maya Barron MD on 02/25/2020 Collected: 02/25/2020 Reported: 02/28/2020 15:54 Reported Physicians See Note None Note: Reported Physicians:Ordering: Cara Alvarengaending: Maya Barron Reviewed by Maya Barron MD on 02/28; All test results are final unless otherwise noted. Urine culture-[facility] Ordered by Maya Barron MD on 02/25/2020 Collected: 02/25/2020 Reported: 02/26/2020 13:38 Urine culture result No growth None Reviewed by Maya Barron MD on 02/27; All test results are final unless otherwise noted. Reported Physicians [facility] Ordered by Maya Barron MD on 02/25/2020 Collected: 02/25/2020 Reported: 02/26/2020 13:39 Reported Physicians See Note None Note: Reported Physicians:Ordering: Maya AlvarengaAttending: Maya Barron Reviewed by Maya Barron MD on 02/27; All test results are final unless otherwise noted. Test Office Lab Ordered by Maya Barron MD on 02/25/2020 [facility] [place], [address] Specimen Source: Urine Collected: 02/25/2020 Reporte d: 02/25/2020 11:15 tel:[phone] Urine HCG neg (negative) N (Normal) Reviewed by Maya Barron MD on 02/24; All test results are final unless otherwise noted. Urinalysis w/out microscopy Office Lab Ordered by Maya Barron MD on 02/25/2020 [address] [place], [address] Specimen Source: Urine Collected: 02/25/2020 Reporte d: 02/25/2020 11:02 tel:[phone] bilirubin neg (neg) N (Normal) blood neg [...] otherwise noted. UA W/ CULTURE IF ABNORMAL [facility] Ordered by Maya Barron MD on 01/29/2020 Collected: 01/29/2020 Reported: 01/29/2020 00:22 Urobilinogen Ur Ql See Note (0.2-1 EU/dl) None Note: 1 EU/dl1 EU/dlL1 EU/dl1 EU/fuE6059 [id number] EU/dlResponsible Observer: UROBILINOGEN UROBILINOGEN 300.4500 (C) RBC # Ur Strip NEGATIVE (NEGATIVE) None Note: Responsible Observer: BLOOD BLOOD 300.4652 (C) Prot Ur Ql Strip See Note (NEGATIVE) None Note: NEGATIVENEGATIVELNEGATIVENEGATIVEL [id number] Observer: PROTEIN PROTEIN 300.3750 (C) Ketones Ur Ql Strip See Note (NEGATIVE) None Note: 15 mg/dL15 mg/dLL15 mg/dL15 mg/dLL [id number] mg/dLResponsible Observer: KETONE KETONE 300.3900 (C) Bilirub Ur Ql Strip.auto See Note (NEGATIVE) None Note: NEGATIVENEGATIVELNEGATIVENEGATIVEL [id number] Observer: BILIRUBIN BILIRUBIN 300.4550 (C) Glucose Ur Strip.auto-mCnc NEGATIVE (NEGATIVE) None Note: Responsible Observer: GLUCOSE GLUC OSE 300.3850 (C) Appearance Ur See Note (CLEAR) None Note: CLEARCLEARLCLEARCLEARLCLEARRespons ible Observer: APPEARANCE APPEARANCE 300.3400 (A) Color Ur See Note None Note: YELLOWYELLOWLYELLOWYELLOWLYELLOWRe sponsible Observer: COLOR COLOR 300.3330 (A) Leukocyte esterase Ur Ql Strip See Note (NEGATIVE) None Note: NEGATIVENEGATIVELNEGATIVENEGATIVEL [id number] Observer: LEUKOCYTES LEUKOCYTES 300.3576 (C) Nitrite Ur Ql Strip See Note (NEGATIVE) None Note: NEGATIVENEGATIVELNEGATIVENEGATIVEL [id number] Observer: NITRITE NITRITE 300.3652 (B) pH Ur [...] are final unless otherwise noted. Reported Physicians [facility] Ordered by Maya Barron MD on 01/29/2020 Collected: 01/29/2020 Reported: 01/29/2020 00:22 Reported Physicians See Note None Note: Reported Physicians:Ordering: Yoli NapolesAttending: Yoli SilvaCopy To: Maya Barron Reviewed by Maya Barron MD on 01/30; All test results are final unless otherwise noted. BHCG,SERUM QUALITATIVE [facility] Ordered by Maya Barron MD on 01/28/2020 Collected: 01/28/2020 Reported: 01/28/2020 22:58 HCG SerPl-sCnc NEGATIVE (NEGATIVE) None Note: @Reenter manual test result: NEGAT LAYA@by Sybil Whatley at 01/28/20 8948.Responsible Observer: BHCG SERUM BHCG SERUM 800.0900 (A) NOTES See Note None Note: @ DID THE CONTROL BAND APPEAR? YES @ DID THE BACKGROUND CLEAR? YES Reviewed by Maya Barron MD on 01/30; All test results are final unless otherwise noted. Reported Physicians [facility] Ordered by Maya Barron MD on 01/28/2020 Collected: 01/28/2020 Reported: 01/28/2020 22:58 Reported Physicians See Note None Note: Reported Physicians:Ordering: Yoli NapolesAttending: Yoli SilvaCopy To: Maya Barron Reviewed by Maya Barron MD on 01/30; All test results are final unless otherwise noted. CBC W AUTO DIFF [facility] Ordered by Maya Barron MD [...] Auto See Note (0-2) N (Normal) Note: [id number] ible Observer: IG% IG% 100.1375 (B) Hct [...] test results are final unless otherwise noted. [facility] Ordered by Maya Barron MD on [...] are final unless otherwise noted. Reported Physicians [facility] Ordered by Maya Barron MD on 01/28/2020 Collected: 01/28/2020 Reported: 01/28/2020 23:00 Reported Physicians See Note None Note: Reported Physicians:Ordering: Cliff Napolesending: Charles Silva To: Maya Barron Reviewed by Maya Barron MD on 01/30; All test results are final unless otherwise noted. Urinalysis w/out microscopy Office Lab Ordered by Maya Barron MD on [address] [place], [address] Specimen Source: Urine Collected: Reported: 2020 11:41 tel:[phone] bilirubin NEGATIVE (neg) N (Normal) blood NEGATIVE [...] Procedures and Surgical History Includes: Procedures from 01/10/2020 through 01/09/2021 Procedures Code Diagnosis Performing Provider Service Location Service Date REVISIT- office visit KAYLEIGH 27 weeks gestatio n of Maya Barron MD [facility], [facility] 12/26/2020 REVISIT- office visit KAYLEIGH 23 weeks gestatio n of Maya Barron MD [facility], [facility] 12/05/2020 REVISIT- office visit KAYLEIGH 22 weeks gestatio n of Maya Barron MD [facility], [facility] 11/28/2020 no charge procedure NC Tension-type headache, unspe cified, intractable Maya Barron MD [facility], [facility] 11/21/2020 REVISIT- office visit KAYLEIGH 21 weeks gestatio n of Maya Barron MD [facility], [facility] 11/21/2020 REVISIT- office visit KAYLEIGH 20 weeks gestatio n of Maya Barron MD [facility], [facility] 11/14/2020 no charge procedure NC Palpitations Maya Barron MD [facility], [facility] 11/03/2020 no charge procedure NC Palpitations Maya Barron MD [facility], [facility] 10/31/2020 REVISIT- office visit KAYLEIGH 18 weeks gestatio n of Maya Barron MD [facility], [facility] 10/31/2020 REVISIT- office visit KAYLEIGH 17 weeks gestatio n of Maya Barron MD [facility], [facility] 10/24/2020 no charge procedure NC Palpitations Maya Barron MD [facility], [facility] 10/17/2020 REVISIT- office visit KAYLEIGH 16 weeks gestatio n of Maya Barron MD [facility], [facility] 10/17/2020 Holter Monitor, Physician review & interpretation only 34564 Palpitations Michel Villalba MD [facility] Outpt 10/11/2020 REVISIT- office visit KAYLEIGH 15 weeks gestatio n of Maya Barron MD [facility], [facility] 10/11/2020 REVISIT- office visit KAYLEIGH 13 weeks gestatio n of Maya Barron MD [facility], [facility] 09/27/2020 REVISIT- office visit KAYLEIGH 12 weeks gestatio n of Maya Barron MD [facility], [facility] 09/19/2020 EKG- Electrocardiogram/12 lead 30798 Chest pain, unspe cified Cat Gutierrez [facility], [facility] 09/11/2020 REVISIT- office visit KAYLEIGH 10 weeks gestatio n of Cat Gutierrez [facility], [facility] 09/05/2020 REVISIT- office visit KAYLEIGH 8 weeks gestation of Maya Barron MD [facility], [facility] 08/22/2020 Urinalysis w/o Microscopy (Distinct Seperate service-same da y) 69136 Frequency of micturition- Urinary Frequency Maya Barron MD [facility], [facility] 08/15/2020 RAPID STREP 96456 Acute pharyngitis, unspecified Maya Barron MD [facility], [facility] 08/15/2020 Initial Obstetrical Care Office Visit OB Le ss than 8 weeks gestation of Cat Gutierrez [facility], [facility] 021 Urinalysis w/o Microscopy 58402 Frequency of micturiti on- Urinary Frequency Maya Barron MD [facility], [facility] 07/19/2020 REVISIT- office visit KAYLEIGH Threatened Alicja Barron MD [facility], [facility] 05/26/2020 NO CHARGE- Nurse visit- OB establish [employer] Thr eatened , state, incidental Maya Barron MD [facility], [facility] 020 General Health Panel( CMP, CBC, TSH) 67698 Dysmenorrhe a, unspecified Maya Barron MD [facility], [facility] 04/10/2020 Venipuncture (routine) 68208 Dysmenorrhea, unspecified Mariela Barron MD [facility], [facility] 04/10/2020 Brief Emotional Behavior Assessment ( add -59 mod) 75851 Screening for Mental Health/Behavioral Disorder, Unspecified Maya Barron MD [facility], [facility] 04/10/2020 Urine Test 98293 Pelvic and perineal pain, Frequency of micturition- Urinary Frequency Maya Barron MD [facility], [facility] 02/25/2020 Urinalysis w/o Microscopy 53663 Frequency of micturiti on- Urinary Frequency Maya Barron MD [facility], [facility] 02/25/2020 Surgical History Last Updated No [...] yrs) 1 04/29/2016 Complete (Reported) Pa tient Varicella 1 04/18/2000 Complete (Reported) Patient Varicella 2 04/29/2016 Complete (Reported) Patient Allergies Includes: Active, inactive, and resolved Allergies Substance Type Reaction Onset Date - Time Resolved Date - Ti me Status Naproxen Allergy Skin Rashes 02/01/2020 - 12:00AM Act laya Encounters Includes: Encounters from 01/10/2020 through 01/09/2021 Encounter Provider Location Date Check-In Time Check-Out Time D iagnosis Telehealth communication Maya Barron MD [facility], [facility] 01/09/2021 12/26/2020 10:00AM 12/26/2020 11:59PM Generalized Anxiety Disorder, Chest Pain, Iron Deficiency Anemia, Upper Respiratory Infection REVISIT- Routine (OB) Visit Maya Barron MD [facility], [facility] 12/26/2020 9:45AM 10:08AM telephone conversation Michel Villalba MD 1 12/14/2020 9:13AM 12/14/2020 11:59PM Atypical Chest Pain telephone conversation Michel Villalba MD 1 12/14/2020 6:45PM 12/14/2020 11:59PM Hypotension telephone conversation Maya Barron MD [facility] 12/19/2020 12/14/2020 2:14PM 12/14/2020 11:59PM Fracture of Fifth Ce rvical Vertebral Body, History of Psychiatric Disorders, Reactive Airway Disease Problem visit - not contagious Bandar Cleveland PA-C [facility], [facility] 12/14/2020 2:08PM 2:52PM Tension-type Headach e REVISIT- Routine (OB) Visit Maya Barron MD [facility], [facility] 12/05/2020 11:17AM 12:08PM REVISIT- Routine (OB) Visit Maya Barron MD [facility], [facility] 11/28/2020 1:34PM 1:51PM Chronic Care Mgt - Office Visit Maya Barron MD [facility], [facility] 11/21/2020 2:10PM 2:35PM Fracture of Fift h Cervical Vertebral Body, History of Psychiatric Disorders, Reactive Airway Disease REVISIT- Routine (OB) Visit Maya Barron MD [facility], [facility] 11/21/2020 11:33AM 12:01PM REVISIT- Routine (OB) Visit Maya Barron MD [facility], [facility] 11/14/2020 9:55AM 10:36AM REVISIT- Routine (OB) Visit Maya Barron MD [facility], [facility] 11/07/2020 11:42AM 12:02PM OB- ILL VISIT Maya Barron MD [facility], [facility] 11/03/2020 3:45PM 4:29PM , Generalized Anxie ty Disorder, Panic Disorder, Chest Pain Chronic Care Mgt - Office Visit Maya Barron MD [facility], [facility] 11/03/2020 2:37PM 3:38PM Chronic Care Mgt - Office Visit Maya Barron MD [facility], [facility] 10/31/2020 3:23PM 3:24PM Fracture of Fift h Cervical Vertebral Body, History of Psychiatric Disorders, Reactive Airway Disease REVISIT- Routine (OB) Visit Maya Barron MD [facility], [facility] 10/31/2020 9:54AM 10:24AM Chronic Care Mgt - Office Visit Maya Barron MD [facility], [facility] 10/24/2020 2:16PM 11:59PM REVISIT- Routine (OB) Visit Maya Barron MD [facility], [facility] 10/24/2020 10:00AM 10:47AM REVISIT- Routine (OB) Visit Maya Barron MD [facility], [facility] 10/17/2020 11:24AM 12:12PM Chronic Care Mgt - Office Visit Maya Barron MD [facility], [facility] 10/17/2020 11:25AM 12:11PM Fracture of Fift h Cervical Vertebral Body, History of Psychiatric Disorders, Reactive Airway Disease REVISIT- Routine (OB) Visit Maya Barron MD [facility], [facility] 10/11/2020 9:44AM 10:15AM OB- ILL VISIT Maya Barron MD [facility], [facility] 10/04/2020 2:12PM 2:31PM Presyncope Syndrome, Tachyca rdia, Palpitations, Difficulty Breathing (Dyspnea), Weeks of Gestation - 14 REVISIT- Routine (OB) Visit Maya Barron MD [facility], [facility] 09/27/2020 1:36PM 1:59PM telephone conversation Michel Villalba MD 09/19/2020 9:43PM 09/19/2020 11:59PM Atypical Chest Pain REVISIT- Routine (OB) Visit Maya Barron MD [facility], [facility] 09/19/2020 9:48AM 10:14AM REVISIT- Routine (OB) Visit Cat Gutierrez [facility], [facility] 09/11/2020 3:22PM 4:16PM REVISIT- Routine (OB) Visit Cat Gutierrez [facility], [facility] 09/05/2020 9:37AM 10:00AM TCMNV phone call- NO CHARGE Cat Gutierrez [facility] 09/04/2020 09/05/2020 4:54PM 09/05/2020 11:59PM [Patient Encounter] Cat Gutierrez [facility] 08/31/2020 021 2:21PM 08/22/2020 11:59PM telephone conversation Michel Villalba MD 08/2808/22/2020 11:00AM 08/22/2020 11:59PM REVISIT- Routine (OB) Visit Maya Barron MD [facility], [facility] 08/22/2020 1:56PM 2:19PM sick visit Maya Barron MD [facility] 0 08/15/2020 9:36AM 10:12AM Upper Respiratory Infection Acute, Pollakiuria Obstetrics/ first visit Cat Gutierrez [facility], [facility] 08/09/2020 9:22AM 10:56AM followup Cat Gutierrez [facility] 0 08/02/2020 10:18AM 11:42AM Generalized Anxiety Disorder , Early Stage, Abdominal Pain telephone conversation Michel Villalba MD 07/26/2020 7:59AM 07/26/2020 11:59PM [Patient Encounter] Cat Gutierrez [facility] 07/28/2020 021 2:20PM 07/26/2020 11:59PM followup Maya Barron MD [facility] 0 07/26/2020 10:39AM 11:02AM , Generalized Anxie ty Disorder sick visit Bandar Cleveland PA-C [facility] 1 3:36PM 4:30PM Pyrexia followup Maya Barron MD [facility] 0 07/19/2020 10:52AM 11:30AM , Generalized Anxie ty Disorder, Pollakiuria followup Maya Barron MD [facility] 1 09/11/2019 10:43AM 11:14AM Atypical Chest Pain, Adjustm ent Disorder followup Maya Barron MD [facility] 1 08/07/2019 10:43AM 10:59AM Missed followup Maya Barron MD [facility] 05/26 1:45PM 2:11PM with Threatened Problem visit - not contagious Maya Barron MD [facility] 05/24/2020 11:13AM 12:00PM with T hreatened [Patient Encounter] Maya Barron MD 05/24/2020 020 10:17AM 04/19/2020 11:59PM followup Maya Barron MD [facility] 1 11:51AM 12:08PM ANNUAL PE-followup Maya Barron MD [facility] 04/10/2020 8:42AM 9:13AM Routine History and Physical Adult (18 - 64 Yrs), Dysmenorrhea sick visit Maya Barron MD [facility] 0 03/06/2020 3:32PM 3:42PM Sinusitis sick visit Maya Barron MD [facility] 0 02/25/2020 10:46AM 11:12AM Pollakiuria, Female Pelvic P ain followup Maya Barron MD [facility] 01/31 2:25PM 2:51PM Back Strain Insurance Includes: Active Insurance Policies Plan Name Member ID Group # Subscriber Relationship Effective Da greg 1 - MANAGED MEDICAID [facility] [id number] Georgiana Prajapati Pickard Self 07/14/2020 - Unknown Advance Directives Includes: Current Advance DirectivesNo Advance Directives Recorded Health Concerns Includes: Active Health ConcernsNo Active Health Concerns Recorded Goals Includes: Active GoalsNo Active Goals Recorded Interventions Includes: Interventions for active GoalsNo Interventions Recorded Evaluations & Outcomes Includes: Evaluations & Outcomes for active GoalsNo Outcomes Recorded
--- OUTSIDE RECORDS SUMMARY | 2021-04-29 16:48 | CCD ---
Author Author [facility] Organization [facility] Address [address] [facility] [address] [place] [address] Phone Care Team Providers Care Supervisor Waterworks Name Role Phone Anderson GILL, Maya Duke PP [phone] Christopher BLANCHARD, Kimberly Prajapati Unavailable Unavailable Reason for Referral No Reason for Referral Recorded Problems Includes: Active, inactive, and resolved Problems All Visits Onset Date - Time Resolved Date - Time Provider Co ndition Status History of Psychiatric Disorders 08/09/2020 - 12:00AM Cat Gutierrez RPA Active Note: Anxiety, panic attacks 06/23/2020 - 12:00AM Cat Gutierrez RPA Active Fracture of Fifth Cervical Vertebral Body 03/04/2018 - 12:00AM Cat Gutierrez RPA Active Note: Unchanged Reactive Airway Disease 03/04/2018 - 12:00AM Cat kimbrough RPA Active Plan of Treatment Pending Tests Order Diagnosis Results Due Ordering Provi yaima Referral Physical Therapist Cervicalgia neck pain 12/04/20 Maya Barron MD Outside Labs 1hr GTT (50mg load Non-Fasting) state , incidental 01/02/21 Maya Barron MD Outside Labs CBC with differential state, incidental 01/02 Maya Barron MD Referral - Physical Therapy Physical Therapy Tension-type headache, unspecified, intractable 03/14/21 Bandar Cleveland PA-C Future Appointments Date Time [facility] Provider [facility] 01/09/2021 10:00AM [facility] SOLE Chopra MD followup 01/16/2021 10:00AM [facility], SOLE Barron MD REVISIT- Routine (OB) Visit 01/23/2021 10:00AM [facility], SOLE Barron MD followup 01/30/2021 10:00AM [facility], SOLE Barron MD REVISIT- Routine (OB) Visit 02/06/2021 10:00AM [facility], SOLE Barron MD followup 02/13/2021 10:00AM [facility], SOLE Barron MD REVISIT- Routine (OB) Visit 02/20/2021 11:45AM [facility], SOLE Barron MD REVISIT- Routine (OB) Visit 02/27/2021 10:00AM [facility], SOLE Gutierrez RPA REVISIT- Routine (OB) Visit 03/06/2021 10:00AM [facility], SOLE Barron MD REVISIT- Routine (OB) Visit 03/13/2021 10:00AM [facility], SOLE Barron MD REVISIT- Routine (OB) Visit 03/20/2021 10:00AM [facility], SOLE Gutierrez RPA REVISIT- Routine (OB) Visit 03/27/2021 10:00AM [facility], SOLE Barron MD Findings Encounter Date [...] for all patient encounters Findings Encounter Date Atypical chest pain Pt called 12/22/20 a [...] today. 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 [Encounter for general adult medical examination with abnormal findings] ANNUAL PE-followup exam/30 with Maya Barron MD 04/07/2019 Vaginal candidiasis sick visit with Cat Gutierrez RPA 02/11 Pharyngitis urgent visit with Bandar Cleveland PA-C 2018 Sprained ribs ; left sick visit with Cat [facility] Strain of muscle and tendon of front wall of thorax si ck visit with Cat [facility] 10/30/2018 Fracture of fifth cervical vertebral body [facility] Late effects of accident No Fault with Cat [facility] 0 03/04/2018 Instructions Instructions not supported for this document typeNo Instructions Recorded Medical Equipment - Implanted Devices Includes: Current and historical DevicesNo Medical Equipment Recorded Medications Includes: Current and historical Medications Current Medications (continue as prescribed) Nitrofurantoin Monohyd Macro 100 MG Oral Capsule 12/14/2020 Provider: Diagnosis: Lidocaine 5% External Patch 12/07/2020 Provider: Maya [...] Provider : Diagnosis: Past Medications on file metroNIDAZOLE 0.75% Vaginal Gel 12/01/2020 - 12/06/2020 [...] MD Diagnosis: as directed 2.5ml (125mg) QID Vancocin HCl 125 MG Oral Capsule [...] Recorded Vital Signs Includes: Vital Signs from 12/27/2019 through 12/26/2020 Vital Name 12/26/2020 09:58A 12/14/2020 02:15P 12/05/2020 [...] Name 03/06/2020 03:38P 02/25/2020 10:59A 02/01/2020 02:38P 12/27/2019 01:31P Pulse Rate-Sitting (bpm) 102 72 88 68 Respiration Rate (breaths/min) 20 20 18 Blood Pressure Sitting (mmHg) 90/58 Oxygen Saturation (%) 97 Pain Level 6 Results Includes: Results from 12/27/2019 through 12/26/2020 Cepheid SARS/FLU/RSV RT-PCR [facility] Ordered by Maya Barron [...] FDA under an EUA for use bypres[facility] kas[facility] hospitalhor[id number]-hcn CoV RNA Resp Ql ТАТЬЯНА+xcuzfKIXLLPRHHAJ-PGF-9 NOT [id number]-ZRU-3 NOT [id number] RNA Resp Ql ТАТЬЯНА+probeLNNFLUAInfluenza A Not Det [id number] A Not Jfmhhdbt22874-8BELJO RNA Resp Ql ТАТЬЯНА+probeLNNINBInfluenza B Not [id number] B Not Rdnlubys01747- 2RSV RNA Resp Ql ТАТЬЯНА+probeLNNRSVRSV Not [id number] Not Detected Reviewed by Maya Barron MD on 12/25; All test results are final unless otherwise noted. Reported Physicians [facility] Ordered by Maya Barron MD on 12/23/2020 Collected: 12/23/2020 Reported: 12/23/2020 13:41 Reported Physicians See Note None Note: Reported Physicians:Ordering: Aj Ferreiraending: Jos Rivas To: Maya Barron Reviewed by Maya Barron MD on 12/25; All test results are final unless otherwise noted. ADD ON MICROSCOPIC [facility] Ordered by Maya Barron MD on 12/23/2020 Collected: 12/23/2020 Reported: 12/23/2020 08:51 ADD ON MICROSCOPIC See Note (0-5) None Note: NOTES OTHER/NOT INTERPRETED Bacteria UrnS Ql Micro MODERATE AMOUNT Bacteria UrnS Ql Micro MODERATE AMOUNT Bacteria UrnS Ql Micro L Bacteria UrnS Ql Micro Bacteria UrnS Ql Micro Bacteria UrnS Ql Micro Bacteria UrnS Ql Micro [id number] Bacteria UrnS Ql Micro Bacteria UrnS Ql [...] are final unless otherwise noted. Reported Physicians [facility] Ordered by Maya Barron MD on 12/23/2020 Collected: 12/23/2020 Reported: 12/23/2020 08:52 Reported Physicians See Note None Note: Reported Physicians:Ordering: Aj Ferreiraending: Jos Rivas To: Maya Barron Reviewed by Maya Barron MD on 12/25; All test results are final unless otherwise noted. UA W/ CULTURE IF ABNORMAL [facility] Ordered by Maya Barron MD on 12/23/2020 Collected: 12/23/2020 Reported: 12/23/2020 08:51 Urobilinogen Ur Ql See Note (0.2-1 EU/dl) None Note: 1 EU/dl1 EU/[id number] EU/dlRe sponsible Observer: UROBILINOGEN UROBILINOGEN 300.4500 (C) RBC # Ur Strip NEGATIVE (NEGATIVE) None Note: Responsible Observer: BLOOD BLOOD 300.4652 (C) Prot Ur Ql Strip See Note (NEGATIVE) None Note: [id number] ble Observer: PROTEIN PROTEIN 300.3750 (C) Ketones Ur Ql Strip See Note (NEGATIVE) None Note: [id number] EResponsible Observer: KETONE KETONE 300.3900 (C) Bilirub Ur Ql Strip.auto See Note (NEGATIVE) None Note: [id number] EResponsible Observer: BILIRUBIN BILIRUBIN 300.4550 (C) Glucose Ur Strip.auto-mCnc NEGATIVE (NEGATIVE) None Note: Responsible Observer: GLUCOSE GLUC OSE 300.3850 (C) Appearance Ur See Note (CLEAR) A (Abnormal) Note: TURBIDTURBIDLTURBIDResponsible Obs erver: APPEARANCE APPEARANCE 300.3400 (A) Color Ur See Note None Note: YELLOWYELLOWLYELLOWResponsible Obs erver: COLOR COLOR 300.3330 (A) Leukocyte esterase Ur Ql Strip See Note (NEGATIVE) None Note: [id number]@DO MICR O!!!!A Culture has been added to this specimen per established criteriaResponsible Observer: LEUKOCYTES LEUKOCYTES 300.3576 (C) Nitrite Ur Ql Strip See Note (NEGATIVE) None Note: [id number] EResponsible Observer: NITRITE NITRITE 300.3652 (B) pH [...] are final unless otherwise noted. Urine culture [facility] Ordered by Maya Barron [...] are final unless otherwise noted. Reported Physicians [facility] Ordered by Maya Barron MD on 12/23/2020 Collected: 12/23/2020 Reported: 12/24/2020 10:07 Reported Physicians See Note None Note: Reported Physicians:Ordering: Aj Ferreiraending: Jos Rivas To: Maya Barron Reviewed by Maya Barron MD on 12/25; All test results are final unless otherwise noted. TROPONIN [facility] Ordered by Maya Barron MD on 12/23/2020 Collected: 12/23/2020 Reported: 12/23/2020 09:39 Troponin I SerPl-mCnc Less Than 0.015 (0.00-0.09) N (Normal) Note: Less than 0.09 NG/ML Negative 0.10 - 0.77 NG/ML High Risk0.78 NG/ML or Greater PositiveThe WHO defined the cutoff (definition for diagnosis of [place])for this method as 0.78 ng/ml.Responsible Observer: Troponin I Troponin I 600.1101 (G) NOTES See Note None Note: ADD-ON Reviewed by Maya Barron MD on 12/25; All test results are final unless otherwise noted. Reported Physicians [facility] Ordered by Maya Barron MD on 12/23/2020 Collected: 12/23/2020 Reported: 12/23/2020 09:39 Reported Physicians See Note None Note: Reported Physicians:Ordering: Aj Ferreiraending: Jos Rivas To: Maya Barron Reviewed by Maya Barron MD on 12/25; All test results are final unless otherwise noted. MAGNESIUM [facility] Ordered by Maya Barron MD on 12/23/2020 Collected: 12/23/2020 Reported: 12/23/2020 09:11 Magnesium SerPl-mCnc 2.1 MilliGramsPerDeciLiter_[Mass_Concentration_Units] (1.3-2.7) N (Normal) Note: Responsible Observer: Magnesium Ma gnesium 400.3300 (G) NOTES See Note None Note: ADD-ON Reviewed by Maya Barron MD on 12/25; All test results are final unless otherwise noted. Reported Physicians [facility] Ordered by Maya Barron MD on 12/23/2020 Collected: 12/23/2020 Reported: 12/23/2020 09:11 Reported Physicians See Note None Note: Reported Physicians:Ordering: Cristino FerreiraAttending: Jos Rivas To: Maya Barron Reviewed by Maya Barron MD on 12/25; All test results are final unless otherwise noted. D-DIMER [facility] Ordered by Maya Barron [...] are final unless otherwise noted. Reported Physicians [facility] Ordered by Maya Barron MD on 12/23/2020 Collected: 12/23/2020 Reported: 12/23/2020 09:39 Reported Physicians See Note None Note: Reported Physicians:Ordering: Aj Ferreiraending: Jos Rivas To: Maya Barron Reviewed by Maya Barron MD on 12/25; All test results are final unless otherwise noted. CBC W AUTO DIFF [facility] Ordered by Maya Barron [...] Auto See Note (0-2) N (Normal) Note: [id number] Ob material carrier: IG% IG% 100.1375 (B) Hct VFr Bld [...] test results are final unless otherwise noted. [facility] Ordered by Maya Barron [...] are final unless otherwise noted. Reported Physicians [facility] Ordered by Maya Barron MD on 12/23/2020 Collected: 12/23/2020 Reported: 12/23/2020 08:29 Reported Physicians See Note None Note: Reported Physicians:Ordering: Cristino FerreiraAttending: Jos Rivas To: Maya Barron Reviewed by Maya Barron MD on 12/25; All test results are final unless otherwise noted. TSH HIGHLY SENSITIVE [facility] Ordered by Maya Barron MD on 12/16/2020 Collected: 12/16/2020 Reported: 12/16/2020 17:28 TSH 1.41 uIU/mL (0.47 - 5.01) None Note: Responsible Observer: (DW) Reviewed by Maya Barron MD on 12/18; All test results are final unless otherwise noted. Reported Physicians [facility] Ordered by Maya Barron MD on 12/16/2020 Collected: 12/16/2020 Reported: 12/16/2020 17:28 Reported Physicians See Note None Note: Reported Physicians:Ordering: VENUS ALONSOAttending: ALLYN PAPPASConsulting: Rubén BARRON To: Miguel Gonsalez To: ALLYN PAPPAS Reviewed by Maya Barron MD on 12/18; All test results are final unless otherwise noted. LIPASE SERUM [facility] Ordered by Maya Barron MD on 12/16/2020 Collected: 12/16/2020 Reported: 12/16/2020 16:29 LIPASE 27 U/L (13 - 60) None Note: Responsible Observer: (DW) Reviewed by Maya Barron MD on 12/18; All test results are final unless otherwise noted. Reported Physicians [facility] Ordered by Maya Barron MD on 12/16/2020 Collected: 12/16/2020 Reported: 12/16/2020 16:29 Reported Physicians See Note None Note: Reported Physicians:Ordering: Sunshine ALONSOending: ALLYN PAPPASConsulting: Rubén BARRON To: Miguel Gonsalez To: ALLYN PAPPAS Reviewed by Maya Barron MD on 12/18; All test results are final unless otherwise noted. CBC W/AUTOMATED DIFF [facility] Ordered by Maya Barron MD [...] are final unless otherwise noted. Reported Physicians [facility] Ordered by Maya Barron MD on 12/16/2020 Collected: 12/16/2020 Reported: 12/16/2020 16:00 Reported Physicians See Note None Note: Reported Physicians:Ordering: Sunshine ALONSOending: ALLYN PAPPASConsulting: Rubén BARRON To: Miguel Gonsalez To: MIAN ALLYN Reviewed by Maya Barron MD on 12/18; All test results are final unless otherwise noted. COMPREHENSIVE METABOLIC PANEL [facility] Ordered by Maya Barron [...] are final unless otherwise noted. Reported Physicians [facility] Ordered by Maya Barron MD on 12/16/2020 Collected: 12/16/2020 Reported: 12/16/2020 16:30 Reported Physicians See Note None Note: Reported Physicians:Ordering: Sunshine ALONSOending: ALLYN PAPPASConsulting: Rubén BARRON To: Miguel Gonsalez To: ALLYN PAPPAS Reviewed by Maya Barron MD on 12/18; All test results are final unless otherwise noted. PT/PTT [facility] Ordered by Maya Barron MD [...] Thrombosis, Pulmonary Embolus, Tissue heart valves, Acute [place] Atrial Fibrillation, Valvular heart disease and recurrent Systemic Embolism. - International Normalized Ratio (INR): 2.5 - 3.5 for Mechanical Prosthetic valve.Responsible Observer: (ABIOLA) Reviewed by Maya Barron MD on 12/18; All test results are final unless otherwise noted. Reported Physicians [facility] Ordered by Maya Barron MD on 12/16/2020 Collected: 12/16/2020 Reported: 12/16/2020 16:30 Reported Physicians See Note None Note: Reported Physicians:Ordering: Sunshine ALONSOending: ALLYN PAPPASConsulting: Rubén BARRON To: Miguel Gonsalez To: ALLYN PAPPAS Reviewed by Maya Barron MD on 12/18; All test results are final unless otherwise noted. TROPONIN T [facility] Ordered by Maya Barron MD on 12/16/2020 Collected: 12/16/2020 Reported: 12/16/2020 16:30 TROPONIN T <0.01 NG/ML (0.00 - 0.10) None Note: TROPONIN T0.1 ng/ml Recommended as the clinical threshold value forTroponin T.Responsible Observer: (ABIOLA) Reviewed by Maya Barron MD on 12/18; All test results are final unless otherwise noted. Reported Physicians [facility] Ordered by Maya Barron MD on 12/16/2020 Collected: 12/16/2020 Reported: 12/16/2020 16:30 Reported Physicians See Note None Note: Reported Physicians:Ordering: Sunshine ALONSOending: ALLYN PAPPASConsulting: Rubén BARRNO To: Miguel Gonsalez To: ALLYN PAPPAS Reviewed by Maya Barron MD on 12/18; All test results are final unless otherwise noted. CBC W AUTO DIFF [facility] Ordered by Maya Barron [...] Auto See Note (0-2) N (Normal) Note: [id number] Ob material carrier: IG% IG% 100.1375 (B) Hct VFr Bld [...] results are final unless otherwise noted. PT/PTT [facility] Ordered by Maya Barron [...] test results are final unless otherwise noted. [facility] Ordered by Maya Barron [...] are final unless otherwise noted. Reported Physicians [facility] Ordered by Maya Barron MD on 12/13/2020 Collected: 12/13/2020 Reported: 12/13/2020 19:02 Reported Physicians See Note None Note: Reported Physicians:Ordering: Pir KanetAttending: Sharri OrozcoCopyifan To: Maya Barron Reviewed by Maya Barron MD on 12/15; All test results are final unless otherwise noted. TSH [facility] Ordered by Maya Barron MD on 12/13/2020 Collected: 12/13/2020 Reported: 12/13/2020 19:02 TSH SerPl DL<=0.005 mIU/L-aCnc 1.02 MicroInternationalUnitsPerMilliLiter_[Arbitrary_Con (0.35-5. 50) N (Normal) Note: Responsible Observer: TSH TSH 600 .7055 (D) Reviewed by Maya Barron MD on 12/15; All test results are final unless otherwise noted. Reported Physicians [facility] Ordered by Maya Barron MD on 12/13/2020 Collected: 12/13/2020 Reported: 12/13/2020 19:02 Reported Physicians See Note None Note: Reported Physicians:Ordering: Edgar Omerttending: Kevin Orozco To: Maya Barron Reviewed by Maya Barron MD on 12/15; All test results are final unless otherwise noted. TROPONIN [facility] Ordered by Maya Barron MD on 12/13/2020 Collected: 12/13/2020 Reported: 12/13/2020 19:02 Troponin I SerPl-mCnc Less Than 0.015 (0.00-0.09) N (Normal) Note: Less than 0.09 NG/ML Negative 0.10 - 0.77 NG/ML High Risk0.78 NG/ML or Greater PositiveThe WHO defined the cutoff (definition for diagnosis of [place])for this method as 0.78 ng/ml.Responsible Observer: Troponin I Troponin I 600.1101 (G) Reviewed by Maya Barron MD on 12/15; All test results are final unless otherwise noted. Reported Physicians [facility] Ordered by Maya Barron MD on 12/13/2020 Collected: 12/13/2020 Reported: 12/13/2020 19:02 Reported Physicians See Note None Note: Reported Physicians:Ordering: Conchis Omerending: Kevin Orozco To: Maya Barron Reviewed by Maya Barron MD on 12/15; All test results are final unless otherwise noted. UA W/ CULTURE IF ABNORMAL [facility] Ordered by Maya Barron MD on 12/13/2020 Collected: 12/13/2020 Reported: 12/13/2020 18:32 Urobilinogen Ur Ql See Note (0.2-1 EU/dl) None Note: 0.2 EU/dl0.2 EU/[id number] E U/dlResponsible Observer: UROBILINOGEN UROBILINOGEN 300.4500 (C) RBC # Ur Strip NEGATIVE (NEGATIVE) None Note: Responsible Observer: BLOOD BLOOD 300.4652 (C) Prot Ur Ql Strip See Note (NEGATIVE) None Note: [id number] EResponsible Observer: PROTEIN PROTEIN 300.3750 (C) Ketones Ur Ql Strip See Note (NEGATIVE) None Note: [id number] EResponsible Observer: KETONE KETONE 300.3900 (C) Bilirub Ur Ql Strip.auto See Note (NEGATIVE) None Note: [id number] EResponsible Observer: BILIRUBIN BILIRUBIN 300.4550 (C) Glucose Ur Strip.auto-mCnc NEGATIVE (NEGATIVE) None Note: Responsible Observer: GLUCOSE GLUC OSE 300.3850 (C) Appearance Ur See Note (CLEAR) None Note: CLEARCLEARLCLEARResponsible Observ er: APPEARANCE APPEARANCE 300.3400 (A) Color Ur See Note None Note: YELLOWYELLOWLYELLOWResponsible Obs erver: COLOR COLOR 300.3330 (A) Leukocyte esterase Ur Ql Strip See Note (NEGATIVE) None Note: [id number]@DO MICR O!!!!A Culture has been added to this specimen per established criteriaResponsible Observer: LEUKOCYTES LEUKOCYTES 300.3576 (C) Nitrite Ur Ql Strip See Note (NEGATIVE) None Note: [id number] EResponsible Observer: NITRITE NITRITE 300.3652 (B) pH [...] are final unless otherwise noted. Urine culture [facility] Ordered by Maya Barron MD on 12/13/2020 Collected: 12/13/2020 Reported: 12/14/2020 13:24 Bacteria Ur Cult See Note None Note: NGNo growth.L1NG NOTES See Note None Note: @12/13/20 1832: Urine culture adde d. RFLXG = CULT.ADD. Reviewed by Maya Barron MD on 12/15; All test results are final unless otherwise noted. Reported Physicians [facility] Ordered by Maya Barron MD on 12/13/2020 Collected: 12/13/2020 Reported: 12/14/2020 13:24 Reported Physicians See Note None Note: Reported Physicians:Ordering: Conchis Omerending: Kevin Orozco To: Maya Barron Reviewed by Maya Barron MD on 12/15; All test results are final unless otherwise noted. ADD ON MICROSCOPIC [facility] Ordered by Maya Barron MD on 12/13/2020 Collected: 12/13/2020 Reported: 12/13/2020 18:32 ADD ON MICROSCOPIC See Note (0-5) None Note: NOTES OTHER/NOT INTERPRETED Bacteria UrnS Ql Micro MODERATE AMOUNT Bacteria UrnS Ql Micro MODERATE AMOUNT Bacteria UrnS Ql Micro L Bacteria UrnS Ql Micro Bacteria UrnS Ql Micro Bacteria UrnS Ql Micro Bacteria UrnS Ql Micro [id number] Bacteria UrnS Ql Micro Bacteria UrnS Ql [...] are final unless otherwise noted. Reported Physicians [facility] Ordered by Maya Barron MD on 12/13/2020 Collected: 12/13/2020 Reported: 12/13/2020 18:33 Reported Physicians See Note None Note: Reported Physicians:Ordering: Conchis Omerending: Pir ErnestoetManny To: Maya Barron Reviewed by Maya Barron MD on 12/15; All test results are final unless otherwise noted. TROPONIN T [facility] Ordered by Maya Barron MD on 12/09/2020 Collected: 12/09/2020 Reported: 12/09/2020 01:32 TROPONIN T <0.01 NG/ML (0.00 - 0.10) None Note: TROPONIN T0.1 ng/ml Recommended as the clinical threshold value forTroponin T.Responsible Observer: (AB) Reviewed by Maya Barron MD on 12/12; All test results are final unless otherwise noted. Reported Physicians [facility] Ordered by Maya Barron MD on 12/09/2020 Collected: 12/09/2020 Reported: 12/09/2020 01:32 Reported Physicians See Note None Note: Reported Physicians:Ordering: MARQUISE TOMLINSON CAttending: MARQUISE SOTOConsulting: Rubén BARRON To: Clare SOTO To: MARQUISE SOTO Reviewed by Maya Barron MD on 12/12; All test results are final unless otherwise noted. TROPONIN T [facility] Ordered by Maya Barron MD on 12/08/2020 Collected: 12/08/2020 Reported: 12/08/2020 22:36 TROPONIN T <0.01 NG/ML (0.00 - 0.10) None Note: TROPONIN T0.1 ng/ml Recommended as the clinical threshold value forTroponin T.Responsible Observer: (AB) Reviewed by Maya Barron MD on 12/12; All test results are final unless otherwise noted. Reported Physicians [facility] Ordered by Maya Barron MD on 12/08/2020 Collected: 12/08/2020 Reported: 12/08/2020 22:36 Reported Physicians See Note None Note: Reported Physicians:Ordering: MARQUISE TOMLINSON CAttending: MARQUISE SOTOConsulting: Rubén BARRON To: Clare SOTO To: MARQUISE SOTO Reviewed by Maya Barron MD on 12/12; All test results are final unless otherwise noted. COMPREHENSIVE METABOLIC PANEL [facility] Ordered by Maya Barron [...] are final unless otherwise noted. Reported Physicians [facility] Ordered by Maya Barron MD on 12/08/2020 Collected: 12/08/2020 Reported: 12/08/2020 22:36 Reported Physicians See Note None Note: Reported Physicians:Ordering: MARQUISE TOMLINSON CAttending: MARQUISE SOTOConsuing: Rubén BARRON To: Clare SOTO To: MARQUISE SOTO Reviewed by Maya Barron MD on 12/12; All test results are final unless otherwise noted. LIPASE SERUM [facility] Ordered by Maya Barron MD on 12/08/2020 Collected: 12/08/2020 Reported: 12/08/2020 22:32 LIPASE 33 U/L (13 - 60) None Note: Responsible Observer: (AB) Reviewed by Maya Barron MD on 12/12; All test results are final unless otherwise noted. Reported Physicians [facility] Ordered by Maya Barron MD on 12/08/2020 Collected: 12/08/2020 Reported: 12/08/2020 22:32 Reported Physicians See Note None Note: Reported Physicians:Ordering: MARQUISE TOMLINSON CAttending: MARQUISE SOTOConsuing: Rubén BARRON To: Clare SOTO To: MARQUISE SOTO Reviewed by Maya Barron MD on 12/12; All test results are final unless otherwise noted. TROPONIN [facility] Ordered by Maya Barron MD on 12/01/2020 Collected: 12/01/2020 Reported: 12/01/2020 18:18 Troponin I SerPl-mCnc Less Than 0.015 (0.00-0.09) N (Normal) Note: Less than 0.09 NG/ML Negative 0.10 - 0.77 NG/ML High Risk0.78 NG/ML or Greater PositiveThe WHO defined the cutoff (definition for diagnosis of [place])for this method as 0.78 ng/ml.Responsible Observer: Troponin I Troponin I 600.1101 (G) Reviewed by Maya Barron MD on 12/04; All test results are final unless otherwise noted. Reported Physicians [facility] Ordered by Maya Barron MD on 12/01/2020 Collected: 12/01/2020 Reported: 12/01/2020 18:19 Reported Physicians See Note None Note: Reported Physicians:Ordering: Math is, TimothyAttending: Pardo, TimothyCopy To: Maya Barron Reviewed by Maya Barron MD on 12/04; All test results are final unless otherwise noted. CBC W AUTO DIFF [facility] Ordered by Maya Barron [...] Auto See Note (0-2) N (Normal) Note: [id number] Ob material carrier: IG% IG% 100.1375 (B) Hct VFr Bld [...] test results are final unless otherwise noted. [facility] Ordered by Maya Barron [...] results are final unless otherwise noted. D-DIMER [facility] Ordered by Maya Barron [...] are final unless otherwise noted. Reported Physicians [facility] Ordered by Maya Barron MD on 12/01/2020 Collected: 12/01/2020 Reported: 12/01/2020 18:19 Reported Physicians See Note None Note: Reported Physicians:Ordering: Sara Kaurending: Adam Pardo To: Maya Barron Reviewed by Maya Barron MD on 12/04; All test results are final unless otherwise noted. AFFIRM [facility] Ordered by Maya Barron MD on 11/29/2020 Collected: 11/29/2020 Reported: 11/30/2020 13:21 Dionna species DNA Probe NOT DETECTED (NOT DETECTED) None Note: THIS TEST WAS PERFORMED AT:[employer] [facility]Stream[address] [address]FOBUMZ MERATI,MDResponsible Observer: Dionna DNA Dionna species DNA Probe [id number] 913.6583 ([employer] Gardnerella DNA Probe DETECTED (NOT DETECTED) H (High) Note: Increased levels of G. vaginalis m ay not be significantin the absence of signs and symptoms of bacterialvaginosis.Responsible Observer: Gardnerella DNA Gardnerella DNA Probe [id number] 913.2855 ([employer] Trichomonas DNA Probe NOT DETECTED (NOT DETECTED) None Note: Responsible Observer: Trichomonas DNA Trichomonas DNA Probe [id number] 913.2340 ([employer] Reviewed by Maya Barron MD on 12/01; All test results are final unless otherwise noted. Reported Physicians [facility] Ordered by Maya Barron MD on 11/29/2020 Collected: 11/29/2020 Reported: 11/30/2020 13:21 Reported Physicians See Note None Note: Reported Physicians:Ordering: Estela SamuelAttending: Vianey Up To: Maya Barron Reviewed by Maya Barron MD on 12/01; All test results are final unless otherwise noted. Cepheid CT/NG RT-PCR [facility] Ordered by Maya Barron [...] may result in failure to detect the targetorganisms.97555-0Y trach DNA Vag Ql ТАТЬЯНА+probeLNCHLAMNC. trachomatis NOT [id number]. trachomatis NOT DPVWEASS81685-7F gonorrhoea rRNA Vag Ql ТАТЬЯНА+probeLNNEIGNN.gonorrhoeae NOT [id number].gonorrhoeae NOT DETECTED Reviewed by Maya Barron MD on 11/29; All test results are final unless otherwise noted. Reported Physicians [facility] Ordered by Maya Barron MD on 11/29/2020 Collected: 11/29/2020 Reported: 11/29/2020 07:03 Reported Physicians See Note None Note: Reported Physicians:Ordering: Estela SamuelAttending: Estela UpCopyifan To: Maya Barron Reviewed by Maya Barron MD on 11/29; All test results are final unless otherwise noted. UA W/ CULTURE IF ABNORMAL [facility] Ordered by Maya Barron MD on 11/29/2020 Collected: 11/29/2020 Reported: 11/29/2020 04:49 Urobilinogen Ur Ql See Note (0.2-1 EU/dl) None Note: 0.2 EU/dl0.2 EU/[id number] E U/dlResponsible Observer: UROBILINOGEN UROBILINOGEN 300.4500 (C) RBC # Ur Strip NEGATIVE (NEGATIVE) None Note: Responsible Observer: BLOOD BLOOD 300.4652 (C) Prot Ur Ql Strip See Note (NEGATIVE) None Note: [id number] EResponsible Observer: PROTEIN PROTEIN 300.3750 (C) Ketones Ur Ql Strip See Note (NEGATIVE) None Note: [id number] EResponsible Observer: KETONE KETONE 300.3900 (C) Bilirub Ur Ql Strip.auto See Note (NEGATIVE) None Note: [id number] EResponsible Observer: BILIRUBIN BILIRUBIN 300.4550 (C) Glucose Ur Strip.auto-mCnc NEGATIVE (NEGATIVE) None Note: Responsible Observer: GLUCOSE GLUC OSE 300.3850 (C) Appearance Ur See Note (CLEAR) None Note: CLEARCLEARLCLEARResponsible Observ er: APPEARANCE APPEARANCE 300.3400 (A) Color Ur See Note None Note: YELLOWYELLOWLYELLOWResponsible Obs erver: COLOR COLOR 300.3330 (A) Leukocyte esterase Ur Ql Strip See Note (NEGATIVE) None Note: [id number]@DO MICR O!!!!A Culture has been added to this specimen per established criteriaResponsible Observer: LEUKOCYTES LEUKOCYTES 300.3576 (C) Nitrite Ur Ql Strip See Note (NEGATIVE) None Note: [id number] EResponsible Observer: NITRITE NITRITE 300.3652 (B) pH [...] are final unless otherwise noted. Urine culture [facility] Ordered by Maya Barron MD on 11/29/2020 Collected: 11/29/2020 Reported: 11/30/2020 07:23 Bacteria Ur Cult See Note None Note: NGNo growth.L1NG NOTES See Note None Note: @11/29/20 0450: Urine culture adde d. RFLXG = CULT.ADD. Reviewed by Maya Barron MD on 12/01; All test results are final unless otherwise noted. Reported Physicians [facility] Ordered by Maya Barron MD on 11/29/2020 Collected: 11/29/2020 Reported: 11/30/2020 07:23 Reported Physicians See Note None Note: Reported Physicians:Ordering: Estela SamuelAttending: Vianey Up To: Maya Barron Reviewed by Maya Barron MD on 12/01; All test results are final unless otherwise noted. ADD ON MICROSCOPIC [facility] Ordered by Maya Barron [...] are final unless otherwise noted. Reported Physicians [facility] Ordered by Maya Barron MD on 11/29/2020 Collected: 11/29/2020 Reported: 11/29/2020 04:51 Reported Physicians See Note None Note: Reported Physicians:Ordering: Gideon Samuelending: Vianey Up To: Maya Barron Reviewed by Maya Barron MD on 11/29; All test results are final unless otherwise noted. TROPONIN [facility] Ordered by Maya Barron MD on 11/20/2020 Collected: 11/20/2020 Reported: 11/20/2020 20:04 Troponin I SerPl-mCnc Less Than 0.015 (0.00-0.09) N (Normal) Note: Less than 0.09 NG/ML Negative 0.10 - 0.77 NG/ML High Risk0.78 NG/ML or Greater PositiveThe WHO defined the cutoff (definition for diagnosis of [place])for this method as 0.78 ng/ml.Responsible Observer: Troponin I Troponin I 600.1101 (G) Reviewed by Maya Barron MD on 11/22; All test results are final unless otherwise noted. Reported Physicians [facility] Ordered by Maya Barron MD on 11/20/2020 Collected: 11/20/2020 Reported: 11/20/2020 20:05 Reported Physicians See Note None Note: Reported Physicians:Ordering: Les Vanegas AAttending: Fady Raza To: Maya Barron Reviewed by Maya Barron MD on 11/22; All test results are final unless otherwise noted. Cepheid SARS/FLU/RSV RT-PCR [facility] Ordered by Maya Barron [...] FDA under an EUA for use bypres[facility] hospitalhorized [id number]-ajb CoV RNA Resp Ql ТАТЬЯНА+vsufaWSTAKPPQTFR-VEZ-2 NOT HTZPNIFMZ8215555851YVDM-XBJ-6 NOT DHQLAIQB44375-7WVBXH RNA Resp Ql ТАТЬЯНА+probeLNNFLUAInfluenza A Not Det [id number] A Not Aqddqibg74873-0ZKJCY RNA Resp Ql ТАТЬЯНА+probeLNNINBInfluenza B Not [id number] B Not Kuzmorof66694- 2RSV RNA Resp Ql ТАТЬЯНА+probeLNNRSVRSV Not [id number] Not Detected Reviewed by Maya Barron MD on 11/20; All test results are final unless otherwise noted. Reported Physicians [facility] Ordered by Maya Barron MD on 11/18/2020 Collected: 11/18/2020 Reported: 11/18/2020 23:58 Reported Physicians See Note None Note: Reported Physicians:Ordering: Aj Snowending: Jos Castellanos To: Maya Barron Reviewed by Maya Barron MD on 11/20; All test results are final unless otherwise noted. URINE DRUG SCREEN -([facility]) [facility] Ordered by Maya Barron MD on 11/17/2020 Collected: 11/17/2020 Reported: 11/17/2020 14:19 PCP Ur Ql Scn>25 ng/mL See Note (Cutoff 25) None Note: [id number] E@Reenter manual test result: NEGATIVE@by Claudia Tello at 11/17/20 1414.Responsible Observer: PCP Urine Phencyclidine (PCP) Scrn 400.5120 (A) THC Ur Ql Scn>50 ng/mL See Note (Cutoff 50) None Note: [id number] EResponsible Observer: Marijuana (THC) Ur Marijuana (THC) Screen 400.5110 (A) Benzodiaz Ur Ql Scn See Note (Cutoff 150) None Note: [id number] E@Reenter manual test result: NEGATIVE@by Claudia Tello at 11/17/20 1418.Responsible Observer: Benzodiazepines Urine Benzodiazepines Screen 400.5170 (A) Opiates Ur Ql Scn See Note (Cutoff 100) None Note: [id number] E@Reenter manual test result: NEGATIVE@by Claudia Tello at 11/17/20 1418.Responsible Observer: Opiates Urine Opiates Screen 400.5150 (A) Tricyclics Ur Ql Scn See Note (Cutoff 300) None Note: [id number] E@Reenter manual test result: NEGATIVE@by Claudia Tello at 11/17/20 1418.Responsible Observer: TCA Ur Tricyclic Antidepressants 400.5180 (A) Cocaine Ur Ql Scn See Note (Cutoff 150) None Note: [id number] E@Reenter manual test result: NEGATIVE@by Claudia Tello at 11/17/20 1417.Responsible Observer: Cocaine Urine Cocaine Screen 400.5130 (A) Propoxyph+Nor Ur Ql Scn See Note (Cutoff 300) None Note: [id number] E@Reenter manual test result: NEGATIVE@by Claudia Tello at 11/17/20 1418.Responsible Observer: Propoxyphene Urine Propoxyphene Screen 400.5220 (A) Methadone Ur Ql Scn See Note (Cutoff 200) None Note: [id number] E@Reenter manual test result: NEGATIVE@by Claudia Tello at 11/17/20 1418.Responsible Observer: Methadone Urine Methadone Screen 400.5190 (A) Methamphet Ur Ql Scn See Note (Cutoff 500) None Note: [id number] E@Reenter manual test result: NEGATIVE@by Claudia Tello at 11/17/20 1417.Responsible Observer: Methamphetamine Urine Methamphetamines Screen 400.5140 (A) oxyCODONE Ur Ql Scn See Note (Cutoff 100) None Note: [id number] E@Reenter manual test result: NEGATIVE@by Claudia Tello at 11/17/20 1418.Responsible Observer: Oxycodone Urine Oxycodone Screen 400.5210 (A) Buprenorphine Ur Ql See Note (Cutoff 10) None Note: [id number] E@Reenter manual test result: NEGATIVE@by Claudia Tello at 11/17/20 1419.Responsible Observer: Buprenorphine Urine Buprenorphine Screen 400.5230 (A) Amphetamines Ur Ql Scn>500 ng/mL See Note (Cutoff 500) None Note: [id number] E@Reenter manual test result: NEGATIVE@by Claudia Tello at 11/17/20 1418.Responsible Observer: Amphetamines Urine Amphetamines Screen 400.5160 (A) Barbiturates Ur Ql Scn>200 ng/mL See Note (Cutoff 200) None Note: [id number] E@Reenter manual test result: NEGATIVE@by Claudia Tello at 11/17/20 1418.Responsible Observer: Barbiturates Urine Barbiturates 400.5200 (A) Reviewed by Maya Barron MD on 11/20; All test results are final unless otherwise noted. FREE T4 (LAB) [facility] Ordered by Maya Barron MD on 11/17/2020 Collected: 11/17/2020 Reported: 11/17/2020 14:34 T4 Free SerPl-mCnc 0.78 NanoGramsPerDeciLiter_[Mass_Concentration_Units] (0.89-1.76) L (Low) Note: Responsible Observer: FREE T4 Free Thyroxine 600.7005 (D) Reviewed by Maya Barron MD on 11/20; All test results are final unless otherwise noted. Reported Physicians [facility] Ordered by Maya Barron MD on 11/17/2020 Collected: 11/17/2020 Reported: 11/17/2020 14:34 Reported Physicians See Note None Note: Reported Physicians:Ordering: Maya AlvarengaAttending: Maya Barron Reviewed by Maya Barron MD on 11/20; All test results are final unless otherwise noted. TSH [facility] Ordered by Maya Barron MD on 11/17/2020 Collected: 11/17/2020 Reported: 11/17/2020 14:34 TSH SerPl DL<=0.005 mIU/L-aCnc 1.38 MicroInternationalUnitsPerMilliLiter_[Arbitrary_Con (0.35-5. 50) N (Normal) Note: Responsible Observer: TSH TSH 600 .7055 (D) Reviewed by Maya Barron MD on 11/20; All test results are final unless otherwise noted. Reported Physicians [facility] Ordered by Maya Barron MD on 11/17/2020 Collected: 11/17/2020 Reported: 11/17/2020 14:34 Reported Physicians See Note None Note: Reported Physicians:Ordering: Bia Alvarenga: Maya Barron Reviewed by Maya Barron MD on 11/20; All test results are final unless otherwise noted. IRON [facility] Ordered by Maya Barron MD on 11/17/2020 Collected: 11/17/2020 Reported: 11/17/2020 14:34 Iron SerPl-mCnc 39 (50-170) L (Low) Note: Iron values may be falsely elevate d in serum samples frompatients treated with anticoagulants (e.g., hemodialysispatients)Responsible Observer: Iron Level Iron Level 400.9002 (A) Reviewed by Maya Barron MD on 11/20; All test results are final unless otherwise noted. Reported Physicians [facility] Ordered by Maya Barron MD on 11/17/2020 Collected: 11/17/2020 Reported: 11/17/2020 14:34 Reported Physicians See Note None Note: Reported Physicians:Ordering: Bia Alvarenga: Maya Barron Reviewed by Maya Barron MD on 11/20; All test results are final unless otherwise noted. CBC W AUTO DIFF [facility] Ordered by Maya Barron [...] Auto See Note (0-2) N (Normal) Note: 0.60.7S77100668983.6Responsible Ob material carrier: IG% IG% 100.1375 (B) Hct VFr Bld [...] results are final unless otherwise noted. HA1C [facility] Ordered by Maya Barron [...] blood glucose control.* High risk of developing terminal manager complications such asretinopathy, nephropathy, neuropathy, cardiopathy, [...] results are final unless otherwise noted. CMP [facility] Ordered by Maya Barron [...] final unless otherwise noted. Vitamin D 25-OH [facility] Ordered by Maya Barron MD on 11/17/2020 Collected: 11/17/2020 Reported: 11/18/2020 08:16 25(OH)D3+25(OH)D2 [facility]-mCnc 9 NanoGramsPerMilliLiter_[Mass_Concentration_Units] (30-100) None Note: Vitamin D Status 25-OH Vit vazquez D:Deficiency: <20 ng/mLInsufficiency: 20 - 29 ng/mLOptimal: > or = 30 ng/mLFor 25-OH Vitamin D testing on patients onD2-supplementation and patients for whom quantitationof D2 and D3 fractions is required, the QuestAssureD(TM)25-OH VIT D, (D2,D3), LC/MS/MS is recommended: ordercode 19111 (patients >2yrs).See Note 1Note 1For additional information, please refer tohttp://education.[employer].Wish/faq/HJW081(This link is being provided for informational/educational purposes only.)THIS TEST WAS PERFORMED AT:[facility] [address]CLAUDY ONEILLesponsible Observer: Vitamin D 25-OH Vitamin D 25-Hydroxy [id number] 409.1819 ([employer] Reviewed by Maya Barron MD on 11/20; All test results are final unless otherwise noted. Reported Physicians [facility] Ordered by Maya Barron MD on 11/17/2020 Collected: 11/17/2020 Reported: 11/18/2020 08:17 Reported Physicians See Note None Note: Reported Physicians:Ordering: Maya AlvarengaAttending: Maya Barron Reviewed by Maya Barron MD on 11/20; All test results are final unless otherwise noted. BHCG Quantitative [facility] Ordered by Maya Barron MD on 10/23/2020 Collected: 10/23/2020 Reported: 10/23/2020 01:21 B-HCG SerPl-aCnc 79072 MilliInternationalUnitsPerMilliLiter_[Arbitrary_Con (0-10) H (High) Note: @Instrument will [...] are final unless otherwise noted. Reported Physicians [facility] Ordered by Maya Barron MD on 10/23/2020 Collected: 10/23/2020 Reported: 10/23/2020 01:21 Reported Physicians See Note None Note: Reported Physicians:Ordering: Yoli NapolesAttending: Charles Silva To: Maya Barron Reviewed by Maya Barron MD on 10/23; All test results are final unless otherwise noted. TROPONIN [facility] Ordered by Maya Barron MD on 10/23/2020 Collected: 10/23/2020 Reported: 10/23/2020 01:03 Troponin I SerPl-mCnc Less Than 0.015 (0.00-0.09) N (Normal) Note: Less than 0.09 NG/ML Negative 0.10 - 0.77 NG/ML High Risk0.78 NG/ML or Greater PositiveThe WHO defined the cutoff (definition for diagnosis of [place])for this method as 0.78 ng/ml.Responsible Observer: Troponin I Troponin I 600.1101 (G) Reviewed by Maya Barron MD on 10/23; All test results are final unless otherwise noted. Reported Physicians [facility] Ordered by Maya Barron MD on 10/23/2020 Collected: 10/23/2020 Reported: 10/23/2020 01:03 Reported Physicians See Note None Note: Reported Physicians:Ordering: Yoli NapolesAttending: Charles Silva To: Maya Barron Reviewed by Maya Barron MD on 10/23; All test results are final unless otherwise noted. CBC W AUTO DIFF [facility] Ordered by Maya Barron [...] Auto See Note (0-2) N (Normal) Note: 0.30.7D44536709765.3Responsible Ob material carrier: IG% IG% 100.1375 (B) Hct VFr Bld [...] test results are final unless otherwise noted. [facility] Ordered by Maya Barron [...] results are final unless otherwise noted. D-DIMER [facility] Ordered by Maya Barron [...] are final unless otherwise noted. Reported Physicians [facility] Ordered by Maya Barron MD on 10/23/2020 Collected: 10/23/2020 Reported: 10/23/2020 01:22 Reported Physicians See Note None Note: Reported Physicians:Ordering: Yoli NapolesAttending: Charles Silva To: Maya Barron Reviewed by Maya Barron MD on 10/23; All test results are final unless otherwise noted. FREE T4 (LAB) [facility] Ordered by Maya Barron MD on 10/21/2020 Collected: 10/21/2020 Reported: 10/21/2020 15:17 T4 Free SerPl-mCnc 0.97 NanoGramsPerDeciLiter_[Mass_Concentration_Units] (0.89-1.76) N (Normal) Note: Responsible Observer: FREE T4 Free Thyroxine 600.7005 (D) Reviewed by Maya Barron MD on 10/23; All test results are final unless otherwise noted. Reported Physicians [facility] Ordered by Maya Barron MD on 10/21/2020 Collected: 10/21/2020 Reported: 10/21/2020 15:17 Reported Physicians See Note None Note: Reported Physicians:Ordering: Tramaine KaurothyAttending: Tramaine PardoothyCopyifan To: Maya Barron Reviewed by Maya Barron MD on 10/23; All test results are final unless otherwise noted. TSH [facility] Ordered by Maya Barron MD on 10/21/2020 Collected: 10/21/2020 Reported: 10/21/2020 15:17 TSH SerPl DL<=0.005 mIU/L-aCnc 1.40 MicroInternationalUnitsPerMilliLiter_[Arbitrary_Con (0.35-5. 50) N (Normal) Note: Responsible Observer: TSH TSH 600 .7055 (D) Reviewed by Maya Barron MD on 10/23; All test results are final unless otherwise noted. Reported Physicians [facility] Ordered by Maya Barron MD on 10/21/2020 Collected: 10/21/2020 Reported: 10/21/2020 15:17 Reported Physicians See Note None Note: Reported Physicians:Ordering: Choco KaurAttending: Adam Pardo To: Maya Barron Reviewed by Maya Barron MD on 10/23; All test results are final unless otherwise noted. UA W/ CULTURE IF ABNORMAL [facility] Ordered by Maya Barron MD on 10/19/2020 Collected: 10/19/2020 Reported: 10/19/2020 16:31 Urobilinogen Ur Ql See Note (0.2-1 EU/dl) None Note: 0.2 EU/dl0.2 EU/csR44871248266.2 E U/dlResponsible Observer: UROBILINOGEN UROBILINOGEN 300.4500 (C) RBC # Ur Strip NEGATIVE (NEGATIVE) None Note: Responsible Observer: BLOOD BLOOD 300.4652 (C) Prot Ur Ql Strip See Note (NEGATIVE) None Note: [id number] EResponsible Observer: PROTEIN PROTEIN 300.3750 (C) Ketones Ur Ql Strip See Note (NEGATIVE) None Note: [id number] EResponsible Observer: KETONE KETONE 300.3900 (C) Bilirub Ur Ql Strip.auto See Note (NEGATIVE) None Note: [id number] EResponsible Observer: BILIRUBIN BILIRUBIN 300.4550 (C) Glucose Ur Strip.auto-mCnc 100 mg/dl (NEGATIVE) None Note: Responsible Observer: GLUCOSE GLUC OSE 300.3850 (C) Appearance Ur See Note (CLEAR) None Note: CLEARCLEARLCLEARResponsible Observ er: APPEARANCE APPEARANCE 300.3400 (A) Color Ur See Note None Note: YELLOWYELLOWLYELLOWResponsible Obs erver: COLOR COLOR 300.3330 (A) Leukocyte esterase Ur Ql Strip See Note (NEGATIVE) None Note: [id number] EResponsible Observer: LEUKOCYTES LEUKOCYTES 300.3576 (C) Nitrite Ur Ql Strip See Note (NEGATIVE) None Note: [id number] EResponsible Observer: NITRITE NITRITE 300.3652 (B) pH [...] are final unless otherwise noted. Reported Physicians [facility] Ordered by Maya Barron MD on 10/19/2020 Collected: 10/19/2020 Reported: 10/19/2020 16:31 Reported Physicians See Note None Note: Reported Physicians:Ordering: Les Vanegasding: Fady Raza To: Maya Barron Reviewed by Maya Barron MD on 10/20; All test results are final unless otherwise noted. URINE DRUG SCREEN -([facility]) [facility] Ordered by Maya Barron MD on 10/19/2020 Collected: 10/19/2020 Reported: 10/19/2020 16:40 PCP Ur Ql Scn>25 ng/mL See Note (Cutoff 25) None Note: [id number] E@Reenter manual test result: NEGATIVE@by Jia Lentz at 10/19/20 1639.Responsible Observer: PCP Urine Phencyclidine (PCP) Scrn 400.5120 (A) THC Ur Ql Scn>50 ng/mL See Note (Cutoff 50) None Note: [id number] EResponsible Observer: Marijuana (THC) Ur Marijuana (THC) Screen 400.5110 (A) Benzodiaz Ur Ql Scn See Note (Cutoff 150) None Note: [id number] E@Reenter manual test result: NEGATIVE@by Jia Lentz at 10/19/20 1640.Responsible Observer: Benzodiazepines Urine Benzodiazepines Screen 400.5170 (A) Opiates Ur Ql Scn See Note (Cutoff 100) None Note: [id number] E@Reenter manual test result: NEGATIVE@by Jia Lentz at 10/19/20 1640.Responsible Observer: Opiates Urine Opiates Screen 400.5150 (A) Tricyclics Ur Ql Scn See Note (Cutoff 300) None Note: [id number] E@Reenter manual test result: NEGATIVE@by Jia Lentz at 10/19/20 1640.Responsible Observer: TCA Ur Tricyclic Antidepressants 400.5180 (A) Cocaine Ur Ql Scn See Note (Cutoff 150) None Note: [id number] E@Reenter manual test result: NEGATIVE@by Jia Lentz at 10/19/20 1640.Responsible Observer: Cocaine Urine Cocaine Screen 400.5130 (A) Propoxyph+Nor Ur Ql Scn See Note (Cutoff 300) None Note: [id number] E@Reenter manual test result: NEGATIVE@by Jia Lentz at 10/19/20 1640.Responsible Observer: Propoxyphene Urine Propoxyphene Screen 400.5220 (A) Methadone Ur Ql Scn See Note (Cutoff 200) None Note: [id number] E@Reenter manual test result: NEGATIVE@by Jia Lentz at 10/19/20 1640.Responsible Observer: Methadone Urine Methadone Screen 400.5190 (A) Methamphet Ur Ql Scn See Note (Cutoff 500) None Note: [id number] E@Reenter manual test result: NEGATIVE@by Jia Lentz at 10/19/20 1640.Responsible Observer: Methamphetamine Urine Methamphetamines Screen 400.5140 (A) oxyCODONE Ur Ql Scn See Note (Cutoff 100) None Note: [id number] E@Reenter manual test result: NEGATIVE@by Jia Lentz at 10/19/20 1640.Responsible Observer: Oxycodone Urine Oxycodone Screen 400.5210 (A) Buprenorphine Ur Ql See Note (Cutoff 10) None Note: [id number] E@Reenter manual test result: NEGATIVE@by Jia Lentz at 10/19/20 1640.Responsible Observer: Buprenorphine Urine Buprenorphine Screen 400.5230 (A) Amphetamines Ur Ql Scn>500 ng/mL See Note (Cutoff 500) None Note: [id number] E@Reenter manual test result: NEGATIVE@by Jia Lentz at 10/19/20 1640.Responsible Observer: Amphetamines Urine Amphetamines Screen 400.5160 (A) Barbiturates Ur Ql Scn>200 ng/mL See Note (Cutoff 200) None Note: [id number] E@Reenter manual test result: NEGATIVE@by Jia Lentz at 10/19/20 1640.Responsible Observer: Barbiturates Urine Barbiturates 400.5200 (A) Reviewed by Maya Barron MD on 10/20; All test results are final unless otherwise noted. Reported Physicians [facility] Ordered by Maya Barron MD on 10/19/2020 Collected: 10/19/2020 Reported: 10/19/2020 16:40 Reported Physicians See Note None Note: Reported Physicians:Ordering: Les Vanegasding: Fady Raza To: Maya Barron Reviewed by Maya Barron MD on 10/20; All test results are final unless otherwise noted. TROPONIN [facility] Ordered by Maya Barron MD on 10/19/2020 Collected: 10/19/2020 Reported: 10/19/2020 16:10 Troponin I SerPl-mCnc Less Than 0.015 (0.00-0.09) N (Normal) Note: Less than 0.09 NG/ML Negative 0.10 - 0.77 NG/ML High Risk0.78 NG/ML or Greater PositiveThe WHO defined the cutoff (definition for diagnosis of [place])for this method as 0.78 ng/ml.Responsible Observer: Troponin I Troponin I 600.1101 (G) Reviewed by Maya Barron MD on 10/20; All test results are final unless otherwise noted. Reported Physicians [facility] Ordered by Maya Barron MD on 10/19/2020 Collected: 10/19/2020 Reported: 10/19/2020 16:10 Reported Physicians See Note None Note: Reported Physicians:Ordering: Les Vanegas: Fady Raza To: Maya Barron Reviewed by Maya Barron MD on 10/20; All test results are final unless otherwise noted. TSH w/ reflex to Free T4 [facility] Ordered by Maya Barron MD on 10/19/2020 Collected: 10/19/2020 Reported: 10/19/2020 16:08 TSH SerPl DL<=0.005 mIU/L-aCnc 1.66 MicroInternationalUnitsPerMilliLiter_[Arbitrary_Con (0.35-5. 50) N (Normal) Note: Responsible Observer: TSH TSH 600 .7060 (D) Reviewed by Maya Barron MD on 10/20; All test results are final unless otherwise noted. Reported Physicians [facility] Ordered by Maya Barron MD on 10/19/2020 Collected: 10/19/2020 Reported: 10/19/2020 16:08 Reported Physicians See Note None Note: Reported Physicians:Ordering: Les Vanegas: Fady Raza To: Maya Barron Reviewed by Maya Barron MD on 10/20; All test results are final unless otherwise noted. CRP, C-REACTIVE PROTEIN [facility] Ordered by Maya Barron MD on 10/19/2020 Collected: 10/19/2020 Reported: 10/19/2020 16:08 CRP SerPl-mCnc 7.5 MilliGramsPerLiter_[Mass_Concentration_Units] (0.0-5.0) H (High) Note: Responsible Observer: CRP C-Reacti ve Protein 401.4355 (H) Reviewed by Maya Barron MD on 10/20; All test results are final unless otherwise noted. SED RATE [facility] Ordered by Maya Barron MD on 10/19/2020 Collected: 10/19/2020 Reported: 10/19/2020 16:32 ESR Bld Qn Westrgrn 22 (0-20) H (High) Note: @Reenter manual test result: 22@by Jia Lentz at 10/19/20 1632.Responsible Observer: SED RATE SED RATE 100.6400 (B) Reviewed by Maya Barron MD on 10/20; All test results are final unless otherwise noted. Reported Physicians [facility] Ordered by Maya Barron MD on 10/19/2020 Collected: 10/19/2020 Reported: 10/19/2020 16:33 Reported Physicians See Note None Note: Reported Physicians:Ordering: Les Vanegastending: Fady Raza To: Maya Barron Reviewed by Maya Barron MD on 10/20; All test results are final unless otherwise noted. CMP [facility] Ordered by Maya Barron [...] unless otherwise noted. CBC W AUTO DIFF [facility] Ordered by Maya Barron [...] Auto See Note (0-2) N (Normal) Note: [id number] Ob material carrier: IG% IG% 100.1375 (B) Hct VFr Bld [...] are final unless otherwise noted. Reported Physicians [facility] Ordered by Maya Barron MD on 10/19/2020 Collected: 10/19/2020 Reported: 10/19/2020 16:33 Reported Physicians See Note None Note: Reported Physicians:Ordering: Les Vanegasding: Fady Raza To: Maya Barron Reviewed by Maya Barron MD on 10/20; All test results are final unless otherwise noted. BMP [facility] Ordered by Maya Barron [...] are final unless otherwise noted. Reported Physicians [facility] Ordered by Maya Barron MD on 10/08/2020 Collected: 10/08/2020 Reported: 10/08/2020 03:21 Reported Physicians See Note None Note: Reported Physicians:Ordering: Sana Recinosending: Jsaper AnnhCopy To: Maya Barron Reviewed by Maya Barron MD on 10/09; All test results are final unless otherwise noted. PT/PTT [facility] Ordered by Maya Barron [...] are final unless otherwise noted. Reported Physicians [facility] Ordered by Maya Barron MD on 10/08/2020 Collected: 10/08/2020 Reported: 10/08/2020 03:22 Reported Physicians See Note None Note: Reported Physicians:Ordering: Sana Recinosending: Sammie Ann To: Maya Barron Reviewed by Maya Barron MD on 10/09; All test results are final unless otherwise noted. CBC W AUTO DIFF [facility] Ordered by Maya Barron [...] Auto See Note (0-2) N (Normal) Note: [id number] Ob material carrier: IG% IG% 100.1375 (B) Hct VFr Bld [...] results are final unless otherwise noted. MAGNESIUM [facility] Ordered by Maya Barron MD on 10/08/2020 Collected: 10/08/2020 Reported: 10/08/2020 03:17 Magnesium SerPl-mCnc 1.8 MilliGramsPerDeciLiter_[Mass_Concentration_Units] (1.3-2.7) N (Normal) Note: Responsible Observer: Magnesium Ma gnesium 400.3300 (G) Reviewed by Maya Barron MD on 10/09; All test results are final unless otherwise noted. D-DIMER [facility] Ordered by Maya Barron [...] are final unless otherwise noted. Reported Physicians [facility] Ordered by Maya Barron MD on 10/08/2020 Collected: 10/08/2020 Reported: 10/08/2020 03:27 Reported Physicians See Note None Note: Reported Physicians:Ordering: Sana Recinosending: Sammie Ann To: Maya Barron Reviewed by Maya Barron MD on 10/09; All test results are final unless otherwise noted. SED RATE [facility] Ordered by Maya Barron MD on 10/04/2020 Collected: 10/04/2020 Reported: 10/04/2020 18:05 ESR Bld Qn Westrgrn 16 (0-20) N (Normal) Note: @Reenter manual test result: 16@by Jia Lentz at 10/04/20 1805.Responsible Observer: SED RATE SED RATE 100.6400 (B) Reviewed by Maya Barron MD on 10/09; All test results are final unless otherwise noted. Reported Physicians [facility] Ordered by Maya Barron MD on 10/04/2020 Collected: 10/04/2020 Reported: 10/04/2020 18:06 Reported Physicians See Note None Note: Reported Physicians:Ordering: Les Vanegasding: Fady Raza To: Maya Barron Reviewed by Maya Barron MD on 10/09; All test results are final unless otherwise noted. CBC W AUTO DIFF [facility] Ordered by Maya Barron [...] Auto See Note (0-2) N (Normal) Note: [id number] Ob material carrier: IG% IG% 100.1375 (B) Hct VFr Bld [...] test results are final unless otherwise noted. [facility] Ordered by Maya Barron [...] are final unless otherwise noted. Reported Physicians [facility] Ordered by Maya Barron MD on 10/04/2020 Collected: 10/04/2020 Reported: 10/04/2020 17:42 Reported Physicians See Note None Note: Reported Physicians:Ordering: Les Vanegastending: Fady Raza To: Maya Barron Reviewed by Maya Barron MD on 10/09; All test results are final unless otherwise noted. TSH w/ reflex to Free T4 [facility] Ordered by Maya Barron MD on 10/04/2020 Collected: 10/04/2020 Reported: 10/04/2020 17:42 TSH SerPl DL<=0.005 mIU/L-aCnc 1.92 MicroInternationalUnitsPerMilliLiter_[Arbitrary_Con (0.35-5. 50) N (Normal) Note: Responsible Observer: TSH TSH 600 .7060 (D) Reviewed by Maya Barron MD on 10/09; All test results are final unless otherwise noted. Reported Physicians [facility] Ordered by Maya Barron MD on 10/04/2020 Collected: 10/04/2020 Reported: 10/04/2020 17:42 Reported Physicians See Note None Note: Reported Physicians:Ordering: Les Vanegas: Fady Raza To: Maya Barron Reviewed by Maya Barron MD on 10/09; All test results are final unless otherwise noted. TROPONIN [facility] Ordered by Maya Barron MD on 10/04/2020 Collected: 10/04/2020 Reported: 10/04/2020 17:35 Troponin I SerPl-mCnc Less Than 0.015 (0.00-0.09) N (Normal) Note: Less than 0.09 NG/ML Negative 0.10 - 0.77 NG/ML High Risk0.78 NG/ML or Greater PositiveThe WHO defined the cutoff (definition for diagnosis of [place])for this method as 0.78 ng/ml.Responsible Observer: Troponin I Troponin I 600.1101 (G) Reviewed by Maya Barron MD on 10/09; All test results are final unless otherwise noted. Reported Physicians [facility] Ordered by Maya Barron MD on 10/04/2020 Collected: 10/04/2020 Reported: 10/04/2020 17:35 Reported Physicians See Note None Note: Reported Physicians:Ordering: Les Vanegasding: Fady Raza To: Maya Barron Reviewed by Maya Barron MD on 10/09; All test results are final unless otherwise noted. BHCG Quantitative [facility] Ordered by Maya Barron MD on 10/03/2020 Collected: 10/03/2020 Reported: 10/03/2020 20:[address] [facility] [address] MilliInternationalUnitsPerMilliLiter_[Arbitrary_Con (0-10) H (High) Note: @Instrument will autodiluteAPPROXI MATE GESTATION AGE APRROXIMATE HCG RANGE 0-1 WEEK 0 - 50 1-2 WEEKS 40 - 300 2-3 WEEKS 100 - 1,000 3-4 WEEKS 500 - 6,000 1-2 MONTHS 5,000 - 200,000 2-3 MONTHS 10,000 - 100,000 2ND TRIMESTER 3,000 - 50,000 3RD TRIMESTER 1,000 - 50,000Responsible Observer: [facility] Quant [facility] Quantitative 600.5006 (G) Reviewed by Maya Barron MD on 10/04; All test results are final unless otherwise noted. Reported Physicians [facility] Ordered by Maya Barron MD on 10/03/2020 Collected: 10/03/2020 Reported: 10/03/2020 20:23 Reported Physicians See Note None Note: Reported Physicians:Ordering: Yoli NapolesAttending: Charles Silva To: Maya Barron Reviewed by Maya Barron MD on 10/04; All test results are final unless otherwise noted. CBC W AUTO DIFF [facility] Ordered by Maya Barron [...] Auto See Note (0-2) N (Normal) Note: [id number] Ob material carrier: IG% IG% 100.1375 (B) Hct VFr Bld [...] test results are final unless otherwise noted. [facility] Ordered by Maya Barron [...] are final unless otherwise noted. Reported Physicians [facility] Ordered by Maya Barron MD on 10/03/2020 Collected: 10/03/2020 Reported: 10/03/2020 20:03 Reported Physicians See Note None Note: Reported Physicians:Ordering: Cliff Napolesending: Charles Silva To: Maya Barron Reviewed by Maya Barron MD on 10/04; All test results are final unless otherwise noted. MANUAL DIFF [facility] Ordered by Maya Barron MD on 10/03/2020 Collected: 10/03/2020 Reported: 10/03/2020 19:56 MANUAL DIFF See Note None Note: NOTES OTHER/NOT INTERPRETED Cells counted 100 Lymphocytes # Bld Manual 17 %Monocytes # Bld Manual 3 %Morphology Bld-Imp APPEARS NORMAL Neutrophils # Bld Manual 80 %Platelet # Bld Est APPEARS NORMAL @10/03/201947: MANUAL DIFF added. RFLXG = DIFF.Responsible Observer: TOTAL CELLS TOTAL CELLS COUNTED 100.2105 (A) Reviewed by Maya Barron MD on 10/04; All test results are final unless otherwise noted. Reported Physicians [facility] Ordered by Maya Barron MD on 10/03/2020 Collected: 10/03/2020 Reported: 10/03/2020 19:56 Reported Physicians See Note None Note: Reported Physicians:Ordering: Yoli NapolesAttending: Charles Silva To: Maya Barron Reviewed by Maya Barron MD on 10/04; All test results are final unless otherwise noted. TROPONIN [facility] Ordered by Maya Barron MD on 10/03/2020 Collected: 10/03/2020 Reported: 10/03/2020 20:07 Troponin I SerPl-mCnc Less Than 0.015 (0.00-0.09) N (Normal) Note: Less than 0.09 NG/ML Negative 0.10 - 0.77 NG/ML High Risk0.78 NG/ML or Greater PositiveThe WHO defined the cutoff (definition for diagnosis of [place])for this method as 0.78 ng/ml.Responsible Observer: Troponin I Troponin I 600.1101 (G) Reviewed by Maya Barron MD on 10/04; All test results are final unless otherwise noted. Reported Physicians [facility] Ordered by Maya Barron MD on 10/03/2020 Collected: 10/03/2020 Reported: 10/03/2020 20:07 Reported Physicians See Note None Note: Reported Physicians:Ordering: Yoli NapolesAttending: Charles Silva To: Maya Barron Reviewed by Maya Barron MD on 10/04; All test results are final unless otherwise noted. FREE T4 (LAB) [facility] Ordered by Maya Barron MD on 10/03/2020 Collected: 10/03/2020 Reported: 10/03/2020 20:08 T4 Free SerPl-mCnc 0.97 NanoGramsPerDeciLiter_[Mass_Concentration_Units] (0.89-1.76) N (Normal) Note: Responsible Observer: FREE T4 Free Thyroxine 600.7005 (D) Reviewed by Maya Barron MD on 10/04; All test results are final unless otherwise noted. Reported Physicians [facility] Ordered by Maya Barron MD on 10/03/2020 Collected: 10/03/2020 Reported: 10/03/2020 20:08 Reported Physicians See Note None Note: Reported Physicians:Ordering: Brook yeung PatAttending: Charles Silva To: Maya Barron Reviewed by Maya Barron MD on 10/04; All test results are final unless otherwise noted. ADD ON MICROSCOPIC [facility] Ordered by Maya Barron MD on 10/03/2020 Collected: 10/03/2020 Reported: 10/03/2020 19:52 ADD ON MICROSCOPIC See Note (0-5) None Note: NOTES OTHER/NOT INTERPRETED Bacteria UrnS Ql Micro SMALL AMOUNT Bacteria UrnS Ql Micro SMALL AMOUNT Bacteria UrnS Ql Micro L Bacteria UrnS Ql Micro Bacteria UrnS Ql Micro Bacteria UrnS Ql Micro Bacteria UrnS Ql Micro [id number] Bacteria UrnS Ql Micro Bacteria UrnS Ql [...] are final unless otherwise noted. Reported Physicians [facility] Ordered by Maya Barron MD on 10/03/2020 Collected: 10/03/2020 Reported: 10/03/2020 19:52 Reported Physicians See Note None Note: Reported Physicians:Ordering: Yoli NapolesAttending: Charles Silva To: Maya Barron Reviewed by Maya Barron MD on 10/04; All test results are final unless otherwise noted. UA W/ CULTURE IF ABNORMAL [facility] Ordered by Maya Barron MD on 10/03/2020 Collected: 10/03/2020 Reported: 10/03/2020 19:52 Urobilinogen Ur Ql See Note (0.2-1 EU/dl) None Note: 0.2 EU/dl0.2 EU/[id number] E U/dlResponsible Observer: UROBILINOGEN UROBILINOGEN 300.4500 (C) RBC # Ur Strip NEGATIVE (NEGATIVE) None Note: Responsible Observer: BLOOD BLOOD 300.4652 (C) Prot Ur Ql Strip See Note (NEGATIVE) None Note: [id number] EResponsible Observer: PROTEIN PROTEIN 300.3750 (C) Ketones Ur Ql Strip See Note (NEGATIVE) None Note: [id number] EResponsible Observer: KETONE KETONE 300.3900 (C) Bilirub Ur Ql Strip.auto See Note (NEGATIVE) None Note: [id number] EResponsible Observer: BILIRUBIN BILIRUBIN 300.4550 (C) Glucose Ur Strip.auto-mCnc NEGATIVE (NEGATIVE) None Note: Responsible Observer: GLUCOSE GLUC OSE 300.3850 (C) Appearance Ur See Note (CLEAR) None Note: CLEARCLEARLCLEARResponsible Observ er: APPEARANCE APPEARANCE 300.3400 (A) Color Ur See Note None Note: YELLOWYELLOWLYELLOWResponsible Obs erver: COLOR COLOR 300.3330 (A) Leukocyte esterase Ur Ql Strip See Note (NEGATIVE) None Note: [id number]@DO MICR O!!!!A Culture has been added to this specimen per established criteriaResponsible Observer: LEUKOCYTES LEUKOCYTES 300.3576 (C) Nitrite Ur Ql Strip See Note (NEGATIVE) None Note: [id number] EResponsible Observer: NITRITE NITRITE 300.3652 (B) pH [...] are final unless otherwise noted. Urine culture [facility] Ordered by Maya Barron MD on 10/03/2020 Collected: 10/03/2020 Reported: 10/04/2020 13:10 Bacteria Ur Cult See Note None Note: NGNo growth.L1NG NOTES See Note None Note: @10/03/201951: Urine culture adde d. RFLXG = CULT.ADD. Reviewed by Maya Barron MD on 10/04; All test results are final unless otherwise noted. Reported Physicians [facility] Ordered by Maya Barron MD on 10/03/2020 Collected: 10/03/2020 Reported: 10/04/2020 13:10 Reported Physicians See Note None Note: Reported Physicians:Ordering: Yoli NapolesAttending: Charles Silva To: Maya Barron Reviewed by Maya Barron MD on 10/04; All test results are final unless otherwise noted. CBC W AUTO DIFF [facility] Ordered by Maya Barron [...] Auto See Note (0-2) N (Normal) Note: [id number] Ob material carrier: IG% IG% 100.1375 (B) Hct VFr Bld [...] test results are final unless otherwise noted. [facility] Ordered by Maya Barron [...] are final unless otherwise noted. Reported Physicians [facility] Ordered by Maya Barron MD on 09/18/2020 Collected: 09/18/2020 Reported: 09/18/2020 20:10 Reported Physicians See Note None Note: Reported Physicians:Ordering: Yoli NapolesAttending: Charles Silva To: Maya Barron Reviewed by Maya Barron MD on 09/20; All test results are final unless otherwise noted. TROPONIN [facility] Ordered by Maya Barron MD on 09/18/2020 Collected: 09/18/2020 Reported: 09/18/2020 20:10 Troponin I SerPl-mCnc Less Than 0.015 (0.00-0.09) N (Normal) Note: Less than 0.09 NG/ML Negative 0.10 - 0.77 NG/ML High Risk0.78 NG/ML or Greater PositiveThe WHO defined the cutoff (definition for diagnosis of [place])for this method as 0.78 ng/ml.Responsible Observer: Troponin I Troponin I 600.1101 (G) Reviewed by Maya Barron MD on 09/20; All test results are final unless otherwise noted. Reported Physicians [facility] Ordered by Maya Barron MD on 09/18/2020 Collected: 09/18/2020 Reported: 09/18/2020 20:10 Reported Physicians See Note None Note: Reported Physicians:Ordering: Yoli NapolesAttending: Charles Silva To: Maya Barron Reviewed by Maya Barron MD on 09/20; All test results are final unless otherwise noted. BHCG, QUANTITATIVE [facility] Ordered by Maya Barron MD on 09/18/2020 Collected: 09/18/2020 Reported: 09/18/2020 20:[address] [facility] [id number] MilliInternationalUnitsPerMilliLiter_[Arbitrary_Con (0-10) H (High) Note: APPROXIMATE GESTATION [...] are final unless otherwise noted. Reported Physicians [facility] Ordered by Maya Barron MD on 09/18/2020 Collected: 09/18/2020 Reported: 09/18/2020 20:22 Reported Physicians See Note None Note: Reported Physicians:Ordering: Cliff Napolesending: Charles Silva To: Maya Barron Reviewed by Maya Barron MD on 09/20; All test results are final unless otherwise noted. Urine culture [facility] Ordered by Cat Gutierrez RPA on 09/11/2020 Collected: 09/11/2020 Reported: 09/12/2020 13:11 Bacteria Ur Cult See Note None Note: NGNo growth.L1NG NOTES See Note None Note: [place]NA PICKARD IN OTHER NAME IN MEDICAL RECORD Reviewed by Cat Gutierrez RPA on 09/12; All test results are final unless otherwise noted. Reported Physicians [facility] Ordered by Cat Gutierrez RPA on 09/11/2020 Collected: 09/11/2020 Reported: 09/12/2020 13:11 Reported Physicians See Note None Note: Reported Physicians:Ordering: Cat ConwayAttending: Cat Gutierrez Reviewed by Cat Gutierrez RPA on 09/12; All test results are final unless otherwise noted. UA W/ CULTURE IF ABNORMAL [facility] Ordered by Maya Barron MD on 09/10/2020 Collected: 09/10/2020 Reported: 09/10/2020 17:48 Urobilinogen Ur Ql See Note (0.2-1 EU/dl) None Note: 0.2 EU/dl0.2 EU/[id number] E U/dlResponsible Observer: UROBILINOGEN UROBILINOGEN 300.4500 (C) RBC # Ur Strip NEGATIVE (NEGATIVE) None Note: Responsible Observer: BLOOD BLOOD 300.4652 (C) Prot Ur Ql Strip See Note (NEGATIVE) None Note: [id number] EResponsible Observer: PROTEIN PROTEIN 300.3750 (C) Ketones Ur Ql Strip See Note (NEGATIVE) None Note: [id number] ble Observer: KETONE KETONE 300.3900 (C) Bilirub Ur Ql Strip.auto See Note (NEGATIVE) None Note: [id number] EResponsible Observer: BILIRUBIN BILIRUBIN 300.4550 (C) Glucose Ur Strip.auto-mCnc NEGATIVE (NEGATIVE) None Note: Responsible Observer: GLUCOSE GLUC OSE 300.3850 (C) Appearance Ur See Note (CLEAR) None Note: CLEARCLEARLCLEARResponsible Observ er: APPEARANCE APPEARANCE 300.3400 (A) Color Ur See Note None Note: YELLOWYELLOWLYELLOWResponsible Obs erver: COLOR COLOR 300.3330 (A) Leukocyte esterase Ur Ql Strip See Note (NEGATIVE) None Note: [id number] EResponsible Observer: LEUKOCYTES LEUKOCYTES 300.3576 (C) Nitrite Ur Ql Strip See Note (NEGATIVE) None Note: [id number] EResponsible Observer: NITRITE NITRITE 300.3652 (B) pH [...] are final unless otherwise noted. Reported Physicians [facility] Ordered by Maya Barron MD on 09/10/2020 Collected: 09/10/2020 Reported: 09/10/2020 17:48 Reported Physicians See Note None Note: Reported Physicians:Ordering: Les Vanegas AAttending: Fady Raza To: Maya Barron Reviewed by Maya Barron MD on 09/11; All test results are final unless otherwise noted. BHCG, QUANTITATIVE [facility] Ordered by Maya Barron MD on 09/10/2020 Collected: 09/10/2020 Reported: 09/10/2020 15:[address] [facility] [address] MilliInternationalUnitsPerMilliLiter_[Arbitrary_Con (0-10) H (High) Note: @Instrument will [...] are final unless otherwise noted. Reported Physicians [facility] Ordered by Maya Barron MD on 09/10/2020 Collected: 09/10/2020 Reported: 09/10/2020 15:49 Reported Physicians See Note None Note: Reported Physicians:Ordering: Les Vanegas: Fady Raza To: Maya Barron Reviewed by Maya Barron MD on 09/11; All test results are final unless otherwise noted. ABO/Rh Type [facility] Ordered by Maya Barron MD on 09/10/2020 Collected: 09/10/2020 Reported: 09/10/2020 15:43 Blood bank studies Yes None Note: Responsible Observer: Prev. Histor y? Previous History? 100.0800 (A) Blood Type See Note None Note: OPO PositiveLResponsible Observer: Blood Type Blood Type 110.0950 (C) Reviewed by Maya Barron MD on 09/11; All test results are final unless otherwise noted. Reported Physicians [facility] Ordered by Maya Barron MD on 09/10/2020 Collected: 09/10/2020 Reported: 09/10/2020 15:43 Reported Physicians See Note None Note: Reported Physicians:Ordering: Les Vanegas: Fady Raza To: Maya Barron Reviewed by Maya Barron MD on 09/11; All test results are final unless otherwise noted. COVID QUEST [facility] Ordered by Maya Barron [...] health care providers andpatients using the following websites:https://www.[employer] .Wish/home/Covid-19/HCP/NAAT/fact-fvtwi4sojwv://www.[employer].Wish/home/Cov id-19/Patients/NAAT/fact-wphvs3Xzop test has been authorized by the FDA under anEmergency Use Authorization (EUA) for use by authorizedlaboratories.Due to the current public health emergency, [facility] is receiving a high volume of samples [...] information about COVID-19 can be foundat the [facility] website:www.[employer].Wish/Covid19.THIS TEST WAS PERFORMED AT:[facility] [id number] MERATI,MDResponsible Observer: COVID-19 COVID-19 ТАТЬЯНА (SARS-CoV-2) [id number] [phone] ([employer] Reviewed by Maya Barron MD on 08/25; All test results are final unless otherwise noted. Reported Physicians [facility] Ordered by Maya Barron MD on 08/23/2020 Collected: 08/23/2020 Reported: 08/25/2020 03:57 Reported Physicians See Note None Note: Reported Physicians:Ordering: Sana Recinosending: Sammie Ann To: Maya Barron Reviewed by Maya Barron MD on 08/25; All test results are final unless otherwise noted. [facility] Ordered by Maya Barron MD on 08/15/[address] [place] [address], [phone] Collected: 08/15/2020 Reported: 08/15/2020 11:47 tel :[phone] strep antigen normal (negative) N (Normal) Reviewed by Maya Barron MD on 08/15; All test results are final unless otherwise noted. Urinalysis w/out microscopy Office Lab Ordered by Maya Barron MD on 08/15/2020 [address] [place], [address] Specimen Source: Urine Collected: 08/15/2020 Reporte d: 08/15/2020 11:03 tel:[phone] bilirubin normal (neg) N (Normal) blood normal [...] final unless otherwise noted. Sweta Raquel SARS/FLU [facility] Lab Ordered by Maya Barron MD on 08/15/2020 Collected: 08/15/2020 Reported: 08/15/2020 15:55 Sweta Raquel SARS/FLU See Note None Note: Sweta Raquel is a rapid, automated q ualitative anddifferentiation of Influenza type A,B and OYCF-TNU-2JTTY-RT-PCR testNORMAL VALUE IS "NOT DETECTED".Limitations of the sweta raquel Influenza A/B & UTVH-EOF-3waseg method.Modifications to manufacturers recommendation and proceduresmay alter performance of the test.Negative results do not preclude Influenza A,B or SARS- FMQ2iwpqgxeezv and should not be used as the sole basis fortreatment or other management decisions. Results from [facility] Raquel Influenza A/B & COV2 should be [...] out diseases caused by other bacterialor viral pathogens.77252-3BCKN-muc CoV RNA Resp Ql ТАТЬЯНА+probeLNNSARS SARS-COV-2 NOT [id number]-ACB-7 NOT HTHHJORF20540-1YVKZI RNA Resp Ql ТАТЬЯНА+probeLNNFLUAInfluenza A Not [id number] A Not Eshkfxva35660-7EPUDC RNA Resp Ql ТАТЬЯНА+probeLNNINBInfluenza B Not WkaglqvzW4408640743Dlziiovzd B Not Detected NOTES See Note None Note: [place] PICKARD IN OTHER NAME IN MEDICAL RECORD Reviewed by Maya Barron MD on 08/18; All test results are final unless otherwise noted. Throat culture [facility] Lab Ordered by Maya Barron MD on 08/15/2020 Collected: 08/15/2020 Reported: 08/17/2020 06:37 Throat culture results Normal Deisy None Reviewed by Maya Barron MD on 08/18; All test results are final unless otherwise noted. Reported Physicians [facility] Lab Ordered by Maya Barron MD on 08/15/2020 Collected: 08/15/2020 Reported: 08/17/2020 06:37 Reported Physicians See Note None Note: Reported Physicians:Ordering: Maya AlvarengaAttending: Maya Barron Reviewed by Maya Barron MD on 08/18; All test results are final unless otherwise noted. Extended hours FLU/COV2 NAAT [facility] Lab Ordered by Maya Barron MD on 08/15/2020 Collected: 08/15/2020 Reported: 08/15/2020 15:55 Extended hours FLU/COV2 NAAT See Note None Note: TNPNo Reportable ResultLTNPNo Repo rtable [id number] NOTES See Note None Note: GE[place]GIANA PICKARD IN OTHER NAME IN MEDICAL RECORD Reviewed by Maya Barron MD on 08/16; All test results are final unless otherwise noted. Reported Physicians [facility] Lab Ordered by Maya Barron MD on 08/15/2020 Collected: 08/15/2020 Reported: 08/15/2020 15:55 Reported Physicians See Note None Note: Reported Physicians:Ordering: Maya AlvarengaAttending: Maya Barron Reviewed by Maya Barron MD on 08/16; All test results are final unless otherwise noted. HPVI [facility] Lab Ordered by Cat Gutierrez RPA on 08/09/2020 Collected: 08/09/2020 Reported: 08/15/2020 06:53 Thin Prep Vag See Note None Note: See scanned reportSee scanned repo rtLSee scanned reportResponsible Observer: TP w/HPV if ASC Thinprep w/HPV if ASCUS 805.1454 ([facility]) NOTES See Note None Note: YTY02-24Epksvyvxns Technique: BRUS H-SPATULABody Site: CERVIX Reviewed by Cat Gutierrez RPA on 08/15; All test results are final unless otherwise noted. Reported Physicians [facility] Lab Ordered by Cat Gutierrez RPA on 08/09/2020 Collected: 08/09/2020 Reported: 08/15/2020 06:53 Reported Physicians See Note None Note: Reported Physicians:Ordering: Atte nding: Cat GutierrezCopy To: Maya Barron Reviewed by Cat Gutierrez RPA on 08/15; All test results are final unless otherwise noted. AFFIRM [facility] Lab Ordered by Cat Gutierrez RPA on 08/09/2020 Collected: 08/09/2020 Reported: 08/11/2020 06:52 Dionna species DNA Probe NOT DETECTED (NOT DETECTED) None Note: THIS TEST WAS PERFORMED AT:[facility] [employer] [address] [address]YAWEEP MERATI,CLAUDYesponsible Observer: Dionna DNA Dionna species DNA Probe [id number] 180.7633 ([employer] Gardnerella DNA Probe DETECTED (NOT DETECTED) H (High) Note: Increased levels of G. vaginalis m ay not be significantin the absence of signs and symptoms of bacterialvaginosis.Responsible Observer: Gardnerella DNA Gardnerella DNA Probe [id number] 913.2346 ([employer] Trichomonas DNA Probe NOT DETECTED (NOT DETECTED) None Note: Responsible Observer: Trichomonas DNA Trichomonas DNA Probe [id number] 913.2347 ([employer] NOTES See Note None Note: PICKARD:IN OTHER NAME IN MEDICAL RECORD Reviewed on 08/11/2020; All test result s are final unless otherwise noted. Reported Physicians [facility] Lab Ordered by Cat Gutierrez RPA on 08/09/2020 Collected: 08/09/2020 Reported: 08/11/2020 06:52 Reported Physicians See Note None Note: Reported Physicians:Ordering: Atte nding: Rigo Gutierrez To: Maya Barron Reviewed on 08/11/2020; All test result s are final unless otherwise noted. GCAMP [facility] Lab Ordered by Cat Gutierrez RPA on 08/09/2020 Collected: 08/09/2020 Reported: 08/11/2020 06:52 C trach rRNA XXX Ql ТАТЬЯНА+probe See Note (NOT DETECTED) None Note: NOT DETECTEDNOT [id number] 6NOT DETECTEDResponsible Observer: C.Trach RNA Chlamydia trachomatis DNA-ТАТЬЯНА [id number] 913.9900 ([employer] N gonorrhoea rRNA XXX Ql ТАТЬЯНА+probe See Note (NOT DETECTED) None Note: NOT DETECTEDNOT [id number] 6NOT DETECTEDResponsible Observer: GC RNA Neisseria gonorrhoeae DNA -ТАТЬЯНА [id number] 913.9905 ([employer] Chlamydia/GC DNA Note SEE NOTE None Note: The analytical performance charact eristics of thisassay, when used to test SurePath(TM) specimens have beendetermined by [facility]. The modifications havenot been cleared or approved by the FDA. This assay hasbeen validated pursuant to the CLIA regulations and isused for clinical purposes.For additional information, please refer tohttps://education.[employer].Wish/faq/ULS777(This link is being provided for information/educational purposes only.)THIS TEST WAS PERFORMED AT:[place] [address]OSEAS NABILDORIEMDResponsible Observer: GC/Chlam Note Chlamydia/GC DNA Note [id number] 915.9631 (A) NOTES See Note None Note: PICKARD:IN OTHER NAME IN MEDICAL RECORD Reviewed by Cat Gutierrez RPA on 08/12; All test results are final unless otherwise noted. Reported Physicians [facility] Ordered by Cat Gutierrez RPA on 08/09/2020 Collected: 08/09/2020 Reported: 08/11/2020 06:52 Reported Physicians See Note None Note: Reported Physicians:Ordering: Atte nding: Rigo Gutierrez To: Maya Barron Reviewed by Cat Gutierrez RPA on 08/12; All test results are final unless otherwise noted. URINALYSIS [facility] Ordered by Cat Gutierrez RPA on 08/09/2020 Collected: 08/09/2020 Reported: 08/09/2020 12:23 Urobilinogen Ur Ql See Note (0.2-1 EU/dl) None Note: 1 EU/dl1 EU/[id number] EU/dlRe sponsible Observer: UROBILINOGEN UROBILINOGEN 300.4500 (C) RBC # Ur Strip NEGATIVE (NEGATIVE) None Note: Responsible Observer: BLOOD BLOOD 300.4650 (C) Prot Ur Ql Strip See Note (NEGATIVE) None Note: [id number] ble Observer: PROTEIN PROTEIN 300.3750 (C) Ketones Ur Ql Strip See Note (NEGATIVE) None Note: [id number] ble Observer: KETONE KETONE 300.3900 (C) Bilirub Ur Ql Strip.auto See Note (NEGATIVE) None Note: [id number] EResponsible Observer: BILIRUBIN BILIRUBIN 300.4550 (C) Glucose Ur Strip.auto-mCnc NEGATIVE (NEGATIVE) None Note: Responsible Observer: GLUCOSE GLUC OSE 300.3850 (C) Appearance Ur See Note (CLEAR) None Note: CLEARCLEARLCLEARResponsible Observ er: APPEARANCE APPEARANCE 300.3400 (A) Color Ur See Note None Note: DARK YELLOWDARK YELLOWLDARK YELLOW Responsible Observer: COLOR COLOR 300.3300 (A) Leukocyte esterase Ur Ql Strip See Note (NEGATIVE) None Note: [id number]@DO MICR O!!!!Responsible Observer: LEUKOCYTES LEUKOCYTES 300.3575 (C) Nitrite Ur Ql Strip See Note (NEGATIVE) None Note: [id number] EResponsible Observer: NITRITE NITRITE 300.3650 (B) pH [...] are final unless otherwise noted. Urine culture [facility] Ordered by Cat Gutierrez RPA on 08/09/2020 Collected: 08/09/2020 Reported: 08/10/2020 08:33 Bacteria Ur Cult See Note None Note: NGNo growth.L1NG Reviewed by Cat Gutierrez RPA on 08/14; All test results are final unless otherwise noted. MEDMATCH [facility] Ordered by Cat Gutierrez RPA on 08/09/2020 Collected: 08/09/2020 Reported: 08/13/2020 15:56 MEDMATCH See scanned report None Note: Responsible Observer: MEDMATCH MED MATCH [phone] ([facility]) Reviewed by Cat Gutierrez RPA on 08/14; All test results are final unless otherwise noted. Reported Physicians [facility] Ordered by Cat Gutierrez RPA on 08/09/2020 Collected: 08/09/2020 Reported: 08/13/2020 15:56 Reported Physicians See Note None Note: Reported Physicians:Ordering: Attchandler barton: Rigo Gutierrez To: Maya Barron Reviewed by Cat Gutierrez RPA on 08/14; All test results are final unless otherwise noted. ADD ON MICROSCOPIC [facility] Ordered by Cat Gutierrez RPA on 08/09/2020 Collected: 08/09/2020 Reported: 08/09/2020 12:23 ADD ON MICROSCOPIC See Note (0-5) H (High) Note: NOTES OTHER/NOT INTERPRETED Bacteria UrnS Ql Micro SMALL AMOUNT Bacteria UrnS Ql Micro SMALL AMOUNT Bacteria UrnS Ql Micro L Bacteria UrnS Ql Micro Bacteria UrnS Ql Micro Bacteria UrnS Ql Micro Bacteria UrnS Ql Micro [id number] Bacteria UrnS Ql Micro Bacteria UrnS Ql [...] Ql Micro Mucous Threads UrnS Ql Micro [id number] Mucous Threads UrnS Ql Micro Mucous Threads UrnS Ql Micro MODERATE AMOUNT WBC # Ur Manual 5-8 @08/09/20 1210: UA W/ MICRO added. RFLXG = UMIC.Method of Collection:: Clean CatchResponsible Observer: WBC WBC 300.5000 (A) Reviewed by Cat Gutierrez RPA on 08/12; All test results are final unless otherwise noted. Reported Physicians [facility] Ordered by Cat Gutierrez RPA on 08/09/2020 Collected: 08/09/2020 Reported: 08/10/2020 17:47 Reported Physicians See Note None Note: Reported Physicians:Ordering: Atte memeing: Rigo Gutierrez To: Maya Barron Reviewed by Cat Gutierrez RPA on 08/12; All test results are final unless otherwise noted. CBC [facility] Ordered by Cat Gutierrez [...] Auto See Note (0-2) N (Normal) Note: [id number] Ob material carrier: IG% IG% 100.1375 (B) Hct VFr Bld [...] results are final unless otherwise noted. TSH [facility] Ordered by Cat Gutierrez RPA on 08/09/2020 Collected: 08/09/2020 Reported: 08/09/2020 14:24 TSH SerPl DL<=0.005 mIU/L-aCnc 1.18 MicroInternationalUnitsPerMilliLiter_[Arbitrary_Con (0.35-5. 50) N (Normal) Note: Responsible Observer: TSH TSH 600 .7055 (D) Reviewed by Cat Gutierrez RPA on 08/14; All test results are final unless otherwise noted. Lead (Venous) Wh.Bld [facility] Ordered by Cat Gutierrez RPA on 08/09/2020 Collected: 08/09/2020 Reported: 08/10/2020 17:47 Lead Bld-sCnc <1 (<5) None Note: See Note 1Note 1This test was faith granados and its analytical performancecharacteristics have been determined by [employer]. It has not been cleared or approved by theA. This assay has been validated pursuant to the CLIAregulations and is used for clinical purposes.THIS TEST WAS PERFORMED AT:[facility] [address]WKIUHYCLAUDY ONEILLesponsible Observer: Lead, WB Lead, Whole Blood [id number] 918.0610 ([facility]) NOTES See Note None Note: Patient Street Address: [address] [place] [address] [address] [place]: [place] [facility] Zip Code: [address] Reviewed by Cat Gutierrez RPA on 08/14; All test results are final unless otherwise noted. ncPN REF [facility] Ordered by Cat Gutierrez RPA on 08/09/2020 Collected: 08/09/2020 Reported: 08/13/2020 15:26 T pallidum Ab Ser Ql Aggl See Note (Nonreactive) None Note: [id number] onreactiveResponsible Observer: TP-PA Treponema pallidum Ab (TP-PA) [id number] 911.4870 ([facility]) HIV1 RNA SerPl Ql ТАТЬЯНА+probe See Note None Note: TNPNo Reportable ResultLTNPNo Repo rtable ResultLLEP.LIVENTNPResponsible Observer: HIV 1 RNA, QL T HIV 1 RNA, QL TMA [id number] 908.0254 ([facility]) HBV surface Ag SerPl Ql IA See Note (NON-REACTIVE) None Note: GBZ-WRNSAMMQNEB-[id number] 5NON-REACTIVEResponsible Observer: HBSAG Hepatitis B Surface Antigen 61641193 910.2004 ([facility]) RUBV IgG SerPl IA-aCnc 1.76 None Note: Index Interpretatio n ----- <0.90 Not consistent with immunity 0.90-0.99 Equivocal > or = 1.00 Consistent with immunityThe presence of rubella IgG antibody suggestsimmunization or past or current infection withrubella virus.THIS TEST WAS PERFORMED AT:[facility] [address]IKBFJA MERATI,MDResponsible Observer: Rubella IgG Ab Rubella IgG Ab [id number] 911.2840 ([facility]) HIV1 Ab SerPlBld Ql IA.rapid See Note None Note: TNPNo Reportable ResultLTNPNo Repo rtable ResultLLEP.LIVENTNPResponsible Observer: HIV 1 AB HIV 1 AB [id number] 908.0250 ([facility]) HBsAg Confirmation See Note None Note: TNPNo Reportable ResultLTNPNo Repo rtable ResultLLEP.LIVENTNPResponsible Observer: HBsAg Confirm HBsAg Confirmation [id number] 910.2006 ([facility]) HIV (1&2) Screen, 4th Gen [...] for this purpose.For additional information please refer tohttp://education.[employer]/faq/IVL514(This link is being provided for informational/educational purposes only.)The performance of this assay has not been clinicallyvalidated in patients less than 2 years old.THIS TEST WAS PERFORMED AT:[facility] [address]OSEAS MEANS,MDResponsible Observer: HIV ABS HIV (1&2) Screen, [facility] Gen [id number] 908.0228 ([facility]) Reviewed by Cat Gutierrez RPA on 08/14; All test results are final unless otherwise noted. Reported Physicians [facility] Ordered by Cat Gutierrez RPA on 08/09/2020 Collected: 08/09/2020 Reported: 08/13/2020 15:27 Reported Physicians See Note None Note: Reported Physicians:Ordering: Atte memeing: Cat GutierrezCopyifan To: Maya Barron Reviewed by Cat Gutierrez RPA on 08/14; All test results are final unless otherwise noted. Varicella-Zoster IgG Antibody [facility] Ordered by Cat Gutierrez RPA on 08/09/2020 Collected: 08/09/2020 Reported: 08/10/2020 17:47 VZV IgG Ser [facility] 242.10 None Note: Index Interpr etation [...] Antibody Immunity Screen, ACIF.THIS TEST WAS PERFORMED AT:[facility] [address]HXIIIU ME RATI,MDResponsible Observer: VARICELLA IGG Varicella-Zoster IgG Antibody [id number] 237.8957 ([facility]) NOTES See Note None Note: Patient Street Address: [address] [place], [place] [address] City: [facility] State: [facility] Zip Code: [address]Ruxmnxe Reviewed by Cat Gutierrez RPA on 08/12; All test results are final unless otherwise noted. HCV RFX ТАТЬЯНА [facility] Ordered by Cat Gutierrez RPA on 08/09/2020 Collected: 08/09/2020 Reported: 08/10/2020 17:47 HCV Ab Ser Ql See Note (NON-REACTIVE) None Note: XRR-TRIHFDSVDRA-[id number] 7NON-REACTIVEResponsible Observer: HEP C ANTIBODY Hepatitis C Antibody 13896955 914.8377 ([facility]) HCV RNA Qualitative (ТАТЬЯНА) 0.54 (<1.00) None Note: HCV antibody was non-reactive. The re is no laboratoryevidence of HCV infection.In most cases, no further action is required. However,if recent HCV exposure is suspected, a test for HCV RNA(test code 73306) is suggested.For additional information please refer tohttp://education.[employer]/faq/STH04c7(This link is being provided for informational/educational purposes only.)THIS TEST WAS PERFORMED AT:[facility] [address]CLAUDY ONEILLesponsible Observer: SIG TO C/O SIGNAL TO CUTOFF [id number] 364.0650 ([facility]) NOTES See Note None Note: Patient Street Address: [address] [place] [address] City: [place] Zip Code: [address]Ychfnmq Reviewed by Cat Gutierrez RPA on 08/12; All test results are final unless otherwise noted. Reported Physicians [facility] Ordered by Cat Gutierrez RPA on 08/09/2020 Collected: 08/09/2020 Reported: 08/10/2020 17:47 Reported Physicians See Note None Note: Reported Physicians:Ordering: Atte nding: Rigo Gutierrez To: Maya Barron Reviewed by Cat Gutierrez RPA on 08/12; All test results are final unless otherwise noted. Type and Screen [facility] Ordered by Cat Gutierrez [...] are final unless otherwise noted. Reported Physicians [facility] Ordered by Cat Gutierrez RPA on 08/09/2020 Collected: 08/09/2020 Reported: 08/09/2020 12:39 Reported Physicians See Note None Note: Reported Physicians:Ordering: Cat ConwayAttending: Cat GutierrezCopyifan To: Maya Barron Reviewed by Cat Gutierrez RPA on 08/10; All test results are final unless otherwise noted. BHCG, QUANTITATIVE [facility] Ordered by Cat Gutierrez RPA on 08/08/2020 Collected: 08/08/2020 Reported: 08/08/2020 11:53 B-HCG [facility] [address] MilliInternationalUnitsPerMilliLiter_[Arbitrary_Con (0-10) H (High) Note: @Instrument will [...] are final unless otherwise noted. Reported Physicians [facility] Ordered by Cat Gutierrez RPA on 08/08/2020 Collected: 08/08/2020 Reported: 08/08/2020 11:54 Reported Physicians See Note None Note: Reported Physicians:Ordering: Jannet valentineing: Rigo Gutierrez To: Maya Barron Reviewed by Cat Gutierrez RPA on 08/08; All test results are final unless otherwise noted. Type and Screen [facility] Ordered by Cat Gutierrez [...] are final unless otherwise noted. Reported Physicians [facility] Ordered by Cat Gutierrez RPA on 08/01/2020 Collected: 08/01/2020 Reported: 08/01/2020 06:03 Reported Physicians See Note None Note: Reported Physicians:Ordering: Aj Ferreiraending: Jos Rivas To: Maya Barron Reviewed by Cat Gutierrez RPA on 08/01; All test results are final unless otherwise noted. BHCG, QUANTITATIVE [facility] Ordered by Cat Gutierrez RPA on 08/01/2020 Collected: 08/01/2020 Reported: 08/01/2020 02:26 B-HCG [facility] [address] MilliInternationalUnitsPerMilliLiter_[Arbitrary_Con (0-10) H (High) Note: @Instrument will [...] are final unless otherwise noted. Reported Physicians [facility] Ordered by Cat Gutierrez RPA on 08/01/2020 Collected: 08/01/2020 Reported: 08/01/2020 02:26 Reported Physicians See Note None Note: Reported Physicians:Ordering: Aj Ferreiraending: Jos Rivas To: Maya Barron Reviewed by Cat Gutierrez RPA on 08/01; All test results are final unless otherwise noted. CBC W AUTO DIFF [facility] Ordered by Cat Gutierrez [...] Auto See Note (0-2) N (Normal) Note: 0.10.9J41703495987.1Responsible Ob material carrier: IG% IG% 100.1375 (B) Hct VFr Bld [...] test results are final unless otherwise noted. [facility] Ordered by Cat Gutierrez [...] are final unless otherwise noted. Reported Physicians [facility] Ordered by Cat Gutierrez RPA on 08/01/2020 Collected: 08/01/2020 Reported: 08/01/2020 02:26 Reported Physicians See Note None Note: Reported Physicians:Ordering: Aj Ferreiraending: Jos Rivas To: Maya Barron Reviewed by Cat Gutierrez RPA on 08/01; All test results are final unless otherwise noted. ADD ON MICROSCOPIC [facility] Ordered by Cat Gutierrez RPA on 08/01/2020 Collected: 08/01/2020 Reported: 08/01/2020 01:01 ADD ON MICROSCOPIC See Note (0-5) None Note: NOTES OTHER/NOT INTERPRETED Bacteria UrnS Ql Micro MODERATE AMOUNT Bacteria UrnS Ql Micro MODERATE AMOUNT Bacteria UrnS Ql Micro L Bacteria UrnS Ql Micro Bacteria UrnS Ql Micro Bacteria UrnS Ql Micro Bacteria UrnS Ql Micro [id number] Bacteria UrnS Ql Micro Bacteria UrnS Ql [...] are final unless otherwise noted. Reported Physicians [facility] Ordered by Cat Gutierrez RPA on 08/01/2020 Collected: 08/01/2020 Reported: 08/01/2020 01:01 Reported Physicians See Note None Note: Reported Physicians:Ordering: Aj Ferreiraending: Jos Rivas To: Maya Barron Reviewed by Cat Gutierrez RPA on 08/01; All test results are final unless otherwise noted. UA W/ CULTURE IF ABNORMAL [facility] Ordered by Cat Gutierrez RPA on 08/01/2020 Collected: 08/01/2020 Reported: 08/01/2020 01:01 Urobilinogen Ur Ql See Note (0.2-1 EU/dl) None Note: 0.2 EU/dl0.2 EU/drK35292365415.2 E U/dlResponsible Observer: UROBILINOGEN UROBILINOGEN 300.4500 (C) RBC # Ur Strip SMALL (NEGATIVE) None Note: @DO MICRO!!!!Responsible Observer: BLOOD BLOOD 300.4652 (C) Prot Ur Ql Strip See Note (NEGATIVE) None Note: [id number] EResponsible Observer: PROTEIN PROTEIN 300.3750 (C) Ketones Ur Ql Strip See Note (NEGATIVE) None Note: 15 mg/dL15 mg/vIH249416301250 mg/d LResponsible Observer: KETONE KETONE 300.3900 (C) Bilirub Ur Ql Strip.auto See Note (NEGATIVE) None Note: [id number] EResponsible Observer: BILIRUBIN BILIRUBIN 300.4550 (C) Glucose Ur Strip.auto-mCnc NEGATIVE (NEGATIVE) None Note: Responsible Observer: GLUCOSE GLUC OSE 300.3850 (C) Appearance Ur See Note (CLEAR) None Note: CLEARCLEARLCLEARResponsible Observ er: APPEARANCE APPEARANCE 300.3400 (A) Color Ur See Note None Note: YELLOWYELLOWLYELLOWResponsible Obs erver: COLOR COLOR 300.3330 (A) Leukocyte esterase Ur Ql Strip See Note (NEGATIVE) None Note: [id number]@DO MICR O!!!!A Culture has been added to this specimen per established criteriaResponsible Observer: LEUKOCYTES LEUKOCYTES 300.3576 (C) Nitrite Ur Ql Strip See Note (NEGATIVE) None Note: [id number] EResponsible Observer: NITRITE NITRITE 300.3652 (B) pH [...] are final unless otherwise noted. Urine culture [facility] Ordered by Cat Gutierrez RPA on 08/01/2020 Collected: 08/01/2020 Reported: 08/02/2020 07:41 Urine culture result See Note None Note: Greater than 100,000 CFU/MLLactoba cilli no senst done NOTES See Note None Note: @08/01/20 0101: Urine culture adde d. RFLXG = CULT.ADD. Reviewed by Cat Gutierrez RPA on 08/02; All test results are final unless otherwise noted. Reported Physicians [facility] Ordered by Cat Gutierrez RPA on 08/01/2020 Collected: 08/01/2020 Reported: 08/02/2020 07:41 Reported Physicians See Note None Note: Reported Physicians:Ordering: Aj Ferreiraending: Jos Rivas To: Maya Barron Reviewed by Cat Gutierrez RPA on 08/02; All test results are final unless otherwise noted. BHCG, QUANTITATIVE [facility] Ordered by Cat Gutierrez RPA on 07/31/2020 Collected: 07/31/2020 Reported: 07/31/2020 16:53 B-HCG SerPl-aCnc 66132 MilliInternationalUnitsPerMilliLiter_[Arbitrary_Con (0-10) H (High) Note: @Instrument will [...] are final unless otherwise noted. Reported Physicians [facility] Ordered by Cat Gutierrez RPA on 07/31/2020 Collected: 07/31/2020 Reported: 07/31/2020 16:53 Reported Physicians See Note None Note: Reported Physicians:Ordering: Atte nding: Cat Gutierrez Reviewed by Cat Gutierrez RPA on 08/01; All test results are final unless otherwise noted. UA W/ CULTURE IF ABNORMAL [facility] Ordered by Cat Gutierrez RPA on 07/27/2020 Collected: 07/27/2020 Reported: 07/27/2020 21:36 Urobilinogen Ur Ql See Note (0.2-1 EU/dl) None Note: 0.2 EU/dl0.2 EU/dvO16328112176.2 E U/dlResponsible Observer: UROBILINOGEN UROBILINOGEN 300.4500 (C) RBC # Ur Strip NEGATIVE (NEGATIVE) None Note: Responsible Observer: BLOOD BLOOD 300.4652 (C) Prot Ur Ql Strip See Note (NEGATIVE) None Note: [id number] EResponsible Observer: PROTEIN PROTEIN 300.3750 (C) Ketones Ur Ql Strip See Note (NEGATIVE) None Note: [id number] EResponsible Observer: KETONE KETONE 300.3900 (C) Bilirub Ur Ql Strip.auto See Note (NEGATIVE) None Note: [id number] EResponsible Observer: BILIRUBIN BILIRUBIN 300.4550 (C) Glucose Ur Strip.auto-mCnc NEGATIVE (NEGATIVE) None Note: Responsible Observer: GLUCOSE GLUC OSE 300.3850 (C) Appearance Ur See Note (CLEAR) None Note: CLEARCLEARLCLEARResponsible Observ er: APPEARANCE APPEARANCE 300.3400 (A) Color Ur See Note None Note: YELLOWYELLOWLYELLOWResponsible Obs erver: COLOR COLOR 300.3330 (A) Leukocyte esterase Ur Ql Strip See Note (NEGATIVE) None Note: [id number]@DO MICR O!!!!A Culture has been added to this specimen per established criteriaResponsible Observer: LEUKOCYTES LEUKOCYTES 300.3576 (C) Nitrite Ur Ql Strip See Note (NEGATIVE) None Note: [id number] EResponsible Observer: NITRITE NITRITE 300.3652 (B) pH [...] are final unless otherwise noted. Urine culture [facility] on 07/27/2020 Collected: 07/27/2020 Reported: 07/29/2020 07:36 Urine culture result 50,000 CFU/ML Lactobacilli no senst done None NOTES See Note None Note: @07/27/202136: Urine culture addchandler dOpal RFLXG = CULT.ADD. Reviewed by Cat [facility] on 07/31; All test results are final unless otherwise noted. Reported Physicians [facility] Ordered by Cat [facility] on 07/27/2020 Collected: 07/27/2020 Reported: 07/29/2020 07:37 Reported Physicians See Note None Note: Reported Physicians:Ordering: Daquan BustamanteAttending: Daquan GoodCopyifan To: Maya Barron Review[facility] on 07/31; All test results are final unless otherwise noted. ADD ON MICROSCOPIC [facility] Ordered by Cat Gutierrez RPA on 07/27/2020 Collected: 07/27/2020 Reported: 07/27/2020 21:36 ADD ON MICROSCOPIC See Note (0-5) None Note: NOTES OTHER/NOT INTERPRETED Bacteria UrnS Ql Micro SMALL AMOUNT Bacteria UrnS Ql Micro SMALL AMOUNT Bacteria UrnS Ql Micro L Bacteria UrnS Ql Micro Bacteria UrnS Ql Micro Bacteria UrnS Ql Micro Bacteria UrnS Ql Micro [id number] Bacteria UrnS Ql Micro Bacteria UrnS Ql [...] are final unless otherwise noted. Reported Physicians [facility] Ordered by Cat Gutierrez RPA on 07/27/2020 Collected: 07/27/2020 Reported: 07/27/2020 21:37 Reported Physicians See Note None Note: Reported Physicians:Ordering: Daquan BustamanteAttending: Daquan GoodCopyifan To: Maya Barron Reviewed by Cat Gutierrez RPA on 07/28; All test results are final unless otherwise noted. BHCG, QUANTITATIVE [facility] Ordered by Cat Gutierrez [...] are final unless otherwise noted. Reported Physicians [facility] Ordered by Cat Gutierrez RPA on 07/27/2020 Collected: 07/27/2020 Reported: 07/27/2020 22:08 Reported Physicians See Note None Note: Reported Physicians:Ordering: Brad Bustamanteending: Ariella Good To: Maya Barron Reviewed by Cat Gutierrez RPA on 07/28; All test results are final unless otherwise noted. CMP [facility] Ordered by Cat Gutierrez [...] are final unless otherwise noted. Reported Physicians [facility] Ordered by Cat Gutierrez RPA on 07/27/2020 Collected: 07/27/2020 Reported: 07/27/2020 20:37 Reported Physicians See Note None Note: Reported Physicians:Ordering: Daquan BustamanteAttending: Daquan GoodCopyifan To: Maya Barron Reviewed by Cat Gutierrez RPA on 07/28; All test results are final unless otherwise noted. Type and Screen [facility] Ordered by Cat Gutierrez [facility] on 07/27/2020 Collected: [...] are final unless otherwise noted. Reported Physicians [facility] Ordered by Cat Gutierrez RPA on 07/27/2020 Collected: 07/27/2020 Reported: 07/27/2020 20:48 Reported Physicians See Note None Note: Reported Physicians:Ordering: Daquan BustamanteAttending: Daquan GoodCopy To: Maya Barron Reviewed by Cat Gutierrez RPA on 07/28; All test results are final unless otherwise noted. CBC W AUTO DIFF [facility] Ordered by Cat Gutierrez [...] Auto See Note (0-2) N (Normal) Note: [id number] Ob material carrier: IG% IG% 100.1375 (B) Hct VFr Bld [...] are final unless otherwise noted. Reported Physicians [facility] Ordered by Cat Gutierrez RPA on 07/27/2020 Collected: 07/27/2020 Reported: 07/27/2020 20:11 Reported Physicians See Note None Note: Reported Physicians:Ordering: Daquan BustamanteAttending: Ariella Good To: Maya Barron Reviewed by Cat Gutierrez RPA on 07/28; All test results are final unless otherwise noted. BHCG, QUANTITATIVE [facility] Ordered by Maya Barron MD on 07/26/2020 Collected: 07/26/2020 Reported: 07/26/2020 16:[address] [facility] 4155 MilliInternationalUnitsPerMilliLiter_[Arbitrary_Con (0-10) H (High) Note: [...] are final unless otherwise noted. Reported Physicians [facility] Ordered by Maya Barron MD on 07/26/2020 Collected: 07/26/2020 Reported: 07/26/2020 16:48 Reported Physicians See Note None Note: Reported Physicians:Ordering: Maya AlvarengaAttending: Maya Barron Reviewed by Maya Barron MD on 07/27; All test results are final unless otherwise noted. Extended hours FLU/COV2 NAAT [facility] Ordered by Bandar Cleveland PA-C on 07/25/2020 Collected: 07/25/2020 Reported: 07/25/2020 18:47 Extended hours FLU/COV2 NAAT See Note None Note: TNPNo Reportable ResultLTNPNo Repo rtable [id number] Reviewed by Bandar Cleveland PA-C on 01/13/202 1; All test results are final unless otherwise noted. Reported Physicians [facility] Ordered by Bandar Cleveland PA-C on 07/25/2020 Collected: 07/25/2020 Reported: 07/25/2020 18:47 Reported Physicians See Note None Note: Reported Physicians:Ordering: Janice Wilsonending: Kami Cleveland To: Health, Public Reviewed by Bandar Cleveland PA-C on 1; All test results are final unless otherwise noted. Sweta Raquel SARS/FLU [facility] Ordered by Bandar Cleveland PA-C on 07/25/2020 Collected: 07/25/2020 Reported: 07/25/2020 18:47 Sweta Raquel SARS/FLU See Note None Note: Sweta Raquel is a rapid, automated q ualitative anddifferentiation of Influenza type A,B and QJNP-ZEM-8FYOM-RT-PCR testNORMAL VALUE IS "NOT DETECTED".Limitations of the sweta raquel Influenza A/B & HIZC-BXN-3ngden method.Modifications to manufacturers recommendation and proceduresmay alter performance of the test.Negative results do not preclude Influenza A,B or SARS- LAF8tqqrdrvehj and should not be used as the [...] out diseases caused by other bacterialor viral pathogens.[id number]-ZlP-8 RNA Resp Ql ТАТЬЯНА+probeLNNOSNo O rganisms [id number] Organisms Detected Reviewed by Bandar Cleveland PA-C on 1; All test results are final unless otherwise noted. Reported Physicians [facility] Ordered by Bandar Cleveland PA-C on 07/25/2020 Collected: 07/25/2020 Reported: 07/25/2020 18:47 Reported Physicians See Note None Note: Reported Physicians:Ordering: Janice Wilsonending: Kami Cleveland To: Health, Public Reviewed by Bandar Cleveland PA-C on ; All test results are final unless otherwise noted. CBC W AUTO DIFF [facility] Ordered by Maya Barron [...] Auto See Note (0-2) N (Normal) Note: [id number] Ob material carrier: IG% IG% 100.1375 (B) Hct VFr Bld [...] are final unless otherwise noted. Reported Physicians [facility] Ordered by Maya Barron MD on 07/22/2020 Collected: 07/22/2020 Reported: 07/22/2020 02:00 Reported Physicians See Note None Note: Reported Physicians:Ordering: Dominic Landaverdeending: Alon Douglas To: Maya Barron Reviewed by Maya Barron MD on 07/24; All test results are final unless otherwise noted. Extended hours FLU/COV2 NAAT [facility] Ordered by Maya Barron MD on 07/22/2020 Collected: 07/22/2020 Reported: 07/22/2020 01:29 Extended hours FLU/COV2 NAAT See Note None Note: TNPNo Reportable ResultLTNPNo Repo rtable [id number] Reviewed by Maya Barron MD on 07/24; All test results are final unless otherwise noted. Reported Physicians [facility] Ordered by Maya Barron MD on 07/22/2020 Collected: 07/22/2020 Reported: 07/22/2020 01:29 Reported Physicians See Note None Note: Reported Physicians:Ordering: Dominic Landaverdeending: Alon Douglas To: Maya Barron Reviewed by Maya Barron MD on 07/24; All test results are final unless otherwise noted. Sweta Raquel SARS/FLU [facility] Ordered by Maya Barron MD on 07/22/2020 Collected: 07/22/2020 Reported: 07/22/2020 01:29 Sweta Raquel SARS/FLU See Note None Note: Sweta Raquel is a rapid, automated q ualitative anddifferentiation of Influenza type A,B and CBUS-LVQ-4QROB-RT-PCR testNORMAL VALUE IS "NOT DETECTED".Limitations of the sweta raquel Influenza A/B & HBFT-MYQ-6jlzru method.Modifications to manufacturers recommendation and proceduresmay alter performance of the test.Negative results do not preclude Influenza A,B or SARS- APO4njvahmtskg and should not be used as the sole basis fortreatment or other management decisions. Results from [facility] Raquel Influenza A/B & COV2 should be [...] out diseases caused by other bacterialor viral pathogens.43014-2KZFA-ZjB-7 RNA Resp Ql ТАТЬЯНА+probeLNNOSNo O rganisms [id number] Organisms Detected Reviewed by Maya Barron MD on 07/24; All test results are final unless otherwise noted. Reported Physicians [facility] Ordered by Maya Barron MD on 07/22/2020 Collected: 07/22/2020 Reported: 07/22/2020 01:29 Reported Physicians See Note None Note: Reported Physicians:Ordering: Hong LandaverdeAttending: Alon Douglas To: Maya Barron Reviewed by Maya Barron MD on 07/24; All test results are final unless otherwise noted. UA W/ CULTURE IF ABNORMAL [facility] Ordered by Maya Barron MD on 07/22/2020 Collected: 07/22/2020 Reported: 07/22/2020 01:10 Urobilinogen Ur Ql See Note (0.2-1 EU/dl) None Note: 0.2 EU/dl0.2 EU/[id number] E U/dlResponsible Observer: UROBILINOGEN UROBILINOGEN 300.4500 (C) RBC # Ur Strip NEGATIVE (NEGATIVE) None Note: Responsible Observer: BLOOD BLOOD 300.4652 (C) Prot Ur Ql Strip See Note (NEGATIVE) None Note: [id number] EResponsible Observer: PROTEIN PROTEIN 300.3750 (C) Ketones Ur Ql Strip See Note (NEGATIVE) None Note: [id number] EResponsible Observer: KETONE KETONE 300.3900 (C) Bilirub Ur Ql Strip.auto See Note (NEGATIVE) None Note: [id number] EResponsible Observer: BILIRUBIN BILIRUBIN 300.4550 (C) Glucose Ur Strip.auto-mCnc NEGATIVE (NEGATIVE) None Note: Responsible Observer: GLUCOSE GLUC OSE 300.3850 (C) Appearance Ur See Note (CLEAR) None Note: CLEARCLEARLCLEARResponsible Observ er: APPEARANCE APPEARANCE 300.3400 (A) Color Ur See Note None Note: YELLOWYELLOWLYELLOWResponsible Obs erver: COLOR COLOR 300.3330 (A) Leukocyte esterase Ur Ql Strip See Note (NEGATIVE) None Note: [id number] EResponsible Observer: LEUKOCYTES LEUKOCYTES 300.3576 (C) Nitrite Ur Ql Strip See Note (NEGATIVE) None Note: [id number] EResponsible Observer: NITRITE NITRITE 300.3652 (B) pH [...] are final unless otherwise noted. Reported Physicians [facility] Ordered by Maya Barron MD on 07/22/2020 Collected: 07/22/2020 Reported: 07/22/2020 01:11 Reported Physicians See Note None Note: Reported Physicians:Ordering: Hong LandaverdeAttending: Alon Douglas To: Maya Barron Reviewed by Maya Barron MD on 07/24; All test results are final unless otherwise noted. Urine culture [facility] Ordered by Maya Barron MD on 07/19/2020 Collected: 07/19/2020 Reported: 07/21/2020 07:48 Bacteria Ur Cult See Note None Note: NGNo growth.L1NG Reviewed by Maya Barron MD on 07/21; All test results are final unless otherwise noted. Reported Physicians [facility] Ordered by Maya Barron MD on 07/19/2020 Collected: 07/19/2020 Reported: 07/21/2020 07:49 Reported Physicians See Note None Note: Reported Physicians:Ordering: Maya AlvarengaAttending: Maya Barron Reviewed by Maya Barron MD on 07/21; All test results are final unless otherwise noted. BHCG, QUANTITATIVE [facility] Ordered by Maya Barron [...] are final unless otherwise noted. Reported Physicians [facility] Ordered by Maya Barron MD on 07/17/2020 Collected: 07/17/2020 Reported: 07/17/2020 12:40 Reported Physicians See Note None Note: Reported Physicians:Ordering: Maya AlvarengaAttending: Maya Barron Reviewed by Maya Barron MD on 07/17; All test results are final unless otherwise noted. [employer] COVID-19 SCHOOL [facility] Ordered by Maya Barron [...] molecular test, if the virus mutates in [facility] region, Covid-19 may not be detected or may bedetected less predictably.ID NOW COVID-19 is intended for testing a swab directlywithout elution in viral transport media as dilution willresult in decreased detection of low positive samples thatare near the limit of detection of the test.SWAB SAMPLES ELUTED IN VTM ARE NOT APPROPRIATE FOR USE INTHIS TEST.NOSNo Organisms [id number] Organisms Detected Reviewed by Maya Barron MD on 05/31; All test results are final unless otherwise noted. Reported Physicians [facility] Ordered by Maya Barron MD on 05/31/2020 Collected: 05/31/2020 Reported: 05/31/2020 07:08 Reported Physicians See Note None Note: Reported Physicians:Ordering: Johnny HernándezAttending: Suzanne Cazares To: Maya Barron Reviewed by Maya Barron MD on 05/31; All test results are final unless otherwise noted. BHCG, QUANTITATIVE [facility] Ordered by Maya Barron MD on 05/26/2020 Collected: 05/26/2020 Reported: 05/26/2020 14:49 B-HCG SerPl-aCnc 00013 MilliInternationalUnitsPerMilliLiter_[Arbitrary_Con (0-10) H (High) Note: @Instrument will [...] are final unless otherwise noted. Reported Physicians [facility] Ordered by Maya Barron MD on 05/26/2020 Collected: 05/26/2020 Reported: 05/26/2020 14:50 Reported Physicians See Note None Note: Reported Physicians:Ordering: Maya AlvarengaAttending: Maya Barron Reviewed by Maya Barron MD on 05/26; All test results are final unless otherwise noted. URINALYSIS [facility] Ordered by Maya Barron MD on 05/23/2020 Collected: 05/23/2020 Reported: 05/23/2020 17:19 Urobilinogen Ur Ql See Note (0.2-1 EU/dl) None Note: 0.2 EU/dl0.2 EU/[id number] E U/dlResponsible Observer: UROBILINOGEN UROBILINOGEN 300.4500 (C) RBC # Ur Strip NEGATIVE (NEGATIVE) None Note: Responsible Observer: BLOOD BLOOD 300.4650 (C) Prot Ur Ql Strip See Note (NEGATIVE) None Note: [id number] EResponsible Observer: PROTEIN PROTEIN 300.3750 (C) Ketones Ur Ql Strip See Note (NEGATIVE) None Note: [id number] EResponsible Observer: KETONE KETONE 300.3900 (C) Bilirub Ur Ql Strip.auto See Note (NEGATIVE) None Note: [id number] EResponsible Observer: BILIRUBIN BILIRUBIN 300.4550 (C) Glucose Ur Strip.auto-mCnc NEGATIVE (NEGATIVE) None Note: Responsible Observer: GLUCOSE GLUC OSE 300.3850 (C) Appearance Ur See Note (CLEAR) None Note: CLEARCLEARLCLEARResponsible Observ er: APPEARANCE APPEARANCE 300.3400 (A) Color Ur See Note None Note: YELLOWYELLOWLYELLOWResponsible Obs erver: COLOR COLOR 300.3300 (A) Leukocyte esterase Ur Ql Strip See Note (NEGATIVE) None Note: [id number] EResponsible Observer: LEUKOCYTES LEUKOCYTES 300.3575 (C) Nitrite Ur Ql Strip See Note (NEGATIVE) None Note: [id number] EResponsible Observer: NITRITE NITRITE 300.3650 (B) pH [...] are final unless otherwise noted. Urine culture [facility] Ordered by Maya Barron MD on 05/23/2020 Collected: 05/23/2020 Reported: 05/24/2020 09:24 Bacteria Ur Cult See Note None Note: NGNo growth.L1NG Reviewed by Maya Barron MD on 05/29; All test results are final unless otherwise noted. MEDMATCH [facility] Ordered by Maya Barron MD on 05/23/2020 Collected: 05/23/2020 Reported: 05/26/2020 17:09 MEDMATCH 1.000 (> or = 1.003) None Note: Responsible Observer: MEDMATCH MED MATCH [phone] ([facility]) Reviewed by Maya Barron MD on 05/29; All test results are final unless otherwise noted. Reported Physicians [facility] Ordered by Maya Barron MD on 05/23/2020 Collected: 05/23/2020 Reported: 05/26/2020 17:09 Reported Physicians See Note None Note: Reported Physicians:Ordering: Cara Alvarengaending: Maya Barron Reviewed by Maya Barron MD on 05/29; All test results are final unless otherwise noted. Varicella-Zoster IgG Antibody [facility] Ordered by Maya Barron [...] Antibody Immunity Screen, ACIF.THIS TEST WAS PERFORMED AT:[facility] [id number] ME RATI,MDResponsible Observer: VARICELLA IGG Varicella-Zoster IgG Antibody [id number] 673.4481 ([employer] NOTES See Note None Note: Patient Street [facility] [address]: [place] [facility] Zip Code: [address] Reviewed by Maya Barron MD on 05/26; All test results are final unless otherwise noted. Reported Physicians [facility] Ordered by Maya Barron MD on 05/23/2020 Collected: 05/23/2020 Reported: 05/25/2020 17:11 Reported Physicians See Note None Note: Reported Physicians:Ordering: Cara Alvarengaending: Maya Barron Reviewed by Maya Barron MD on 05/26; All test results are final unless otherwise noted. CBC [facility] Ordered by Maya Barron [...] Auto See Note (0-2) N (Normal) Note: 0.20.3Q18686741747.2Responsible Ob material carrier: IG% IG% 100.1375 (B) Hct VFr Bld [...] results are final unless otherwise noted. TSH [facility] Ordered by Maya Barron MD on 05/23/2020 Collected: 05/23/2020 Reported: 05/23/2020 18:38 TSH SerPl DL<=0.005 mIU/L-aCnc 1.87 MicroInternationalUnitsPerMilliLiter_[Arbitrary_Con (0.35-5. 50) N (Normal) Note: Responsible Observer: TSH TSH 600 .7055 (D) Reviewed by Maya Barron MD on 05/29; All test results are final unless otherwise noted. Lead (Venous) Wh.Bld [facility] Ordered by Maya Barron MD on 05/23/2020 Collected: 05/23/2020 Reported: 05/25/2020 17:11 Lead Bld-sCnc <1 (<5) None Note: See Note 1Note 1This test was faith [facility] and its analytical performancecharacteristics have been determined by [employer]. It has not been cleared or approved by theA. This assay has been validated pursuant to the CLIAregulations and is used for clinical purposes.THIS TEST WAS PERFORMED AT:[facility] [id number] MERATI,MDResponsible Observer: Lead, WB Lead, Whole Blood [id number] 911.2190 ([facility]) NOTES See Note None Note: Patient Street Address: [facility] [address]Patient City: [place] [facility] Zip Code: [address] Reviewed by Maya Barron MD on 05/29; All test results are final unless otherwise noted. ncPN REF [facility] Ordered by Maya Barron MD on 05/23/2020 Collected: 05/23/2020 Reported: 05/27/2020 20:54 T pallidum Ab Ser Ql Aggl See Note (Nonreactive) None Note: [id number] onreactiveResponsible Observer: TP-PA Treponema pallidum Ab (TP-PA) [id number] 908.0286 ([facility]) HIV1 RNA SerPl Ql ТАТЬЯНА+probe See Note None Note: TNPNo Reportable ResultLTNPNo Repo rtable ResultLLEP.LIVENTNPResponsible Observer: HIV 1 RNA, QL T HIV 1 RNA, QL TMA [id number] 908.0254 ([facility]) HBV surface Ag SerPl Ql IA See Note (NON-REACTIVE) None Note: [id number] 0NON-REACTIVEResponsible Observer: HBSAG Hepatitis B Surface Antigen [id number] 910.2004 ([facility]) RUBV IgG SerPl IA-aCnc 1.80 None Note: Index Interpretatio n ----- <0.90 Not consistent with Immunity 0.90-0.99 Equivocal > or = 1.00 Consistent with ImmunityThe presence of rubella IgG antibody suggestsimmunization or past or current infection withrubella virus.THIS TEST WAS PERFORMED AT:[facility] [id number] MERATI,MDResponsible Observer: Rubella IgG Ab Rubella IgG Ab [id number] 911.2840 ([facility]) HIV1 Ab SerPlBld Ql IA.rapid See Note None Note: TNPNo Reportable ResultLTNPNo Repo rtable ResultLLEP.LIVENTNPResponsible Observer: HIV 1 AB HIV 1 AB [id number] 908.0250 ([facility]) HBsAg Confirmation See Note None Note: TNPNo Reportable ResultLTNPNo Repo rtable ResultLLEP.LIVENTNPResponsible Observer: HBsAg Confirm HBsAg Confirmation [id number] 910.2006 ([facility]) HIV (1&2) Screen, 4th Gen [...] for this purpose.For additional information please refer tohttp://education.[employer]/faq/EJW464(This link is being provided for informational/educational purposes only.)The performance of this assay has not been clinicallyvalidated in patients less than 2 years old.Responsible Observer: HIV ABS HIV (1&2) Screen, 4th Gen [id number] 908.0228 ([facility]) Reviewed by Maya Barron MD on 05/29; All test results are final unless otherwise noted. Reported Physicians [facility] Ordered by Maya Barron MD on 05/23/2020 Collected: 05/23/2020 Reported: 05/27/2020 20:54 Reported Physicians See Note None Note: Reported Physicians:Ordering: Maya AlvarengaAttending: Maya Barron Reviewed by Maya Barron MD on 05/29; All test results are final unless otherwise noted. HCV RFX ТАТЬЯНА [facility] Ordered by Maya Barron MD on 05/23/2020 Collected: 05/23/2020 Reported: 05/25/2020 17:11 HCV Ab Ser Ql See Note (NON-REACTIVE) None Note: [id number] 7NON-REACTIVEResponsible Observer: HEP C ANTIBODY Hepatitis C Antibody [id number] 914.8305 ([employer] HCV RNA Qualitative (ТАТЬЯНА) 0.59 (<1.00) None Note: HCV antibody was non-reactive. The re is no laboratoryevidence of HCV infection.In most cases, no further action is required. However,if recent HCV exposure is suspected, a test for HCV RNA(test code 10344) is suggested.For additional information please refer tohttp://education.[employer]point/faq/YIB99n8(This link is being provided for informational/educational purposes only.)THIS TEST WAS PERFORMED AT:[facility] [phone]CLAUDY ONEILLesponsible Observer: SIG TO C/O SIGNAL TO CUTOFF [id number] 914.8335 ([employer] NOTES See Note None Note: Patient Street Address: [facility] [address]Patient City: [place]: [place]: [address] Reviewed by Maya Barron MD on 05/26; All test results are final unless otherwise noted. Reported Physicians [facility] Ordered by Maya Barron MD on 05/23/2020 Collected: 05/23/2020 Reported: 05/25/2020 17:11 Reported Physicians See Note None Note: Reported Physicians:Ordering: Maya AlvarengaAttending: Maya Barron Reviewed by Maya Barron MD on 05/26; All test results are final unless otherwise noted. Type and Screen [facility] Ordered by Maya Barron [...] are final unless otherwise noted. Reported Physicians [facility] Ordered by Maya Barron MD on 05/23/2020 Collected: 05/23/2020 Reported: 05/23/2020 19:32 Reported Physicians See Note None Note: Reported Physicians:Ordering: Maya AlvarengaAttending: Maya Barron Reviewed by Maya Barron MD on 05/24; All test results are final unless otherwise noted. PROGESTERONE [facility] Ordered by Maya Barron [...] are final unless otherwise noted. Reported Physicians [facility] Ordered by Maya Barron MD on 04/27/2020 Collected: 04/27/2020 Reported: 04/27/2020 15:58 Reported Physicians See Note None Note: Reported Physicians:Ordering: Johnny HernándezAttending: Jos Castellanos To: Rubén Barron To: Cristino Castellanos Reviewed by Maya Barron MD on 04/30; All test results are final unless otherwise noted. BHCG, QUANTITATIVE [facility] Ordered by Maya Barron MD on 04/27/2020 Collected: 04/27/2020 Reported: 04/27/2020 14:[address] [facility] 2353 MilliInternationalUnitsPerMilliLiter_[Arbitrary_Con (0-10) H (High) Note: @Instrument [...] are final unless otherwise noted. Reported Physicians [facility] Ordered by Maya Barron MD on 04/27/2020 Collected: 04/27/2020 Reported: 04/27/2020 14:40 Reported Physicians See Note None Note: Reported Physicians:Ordering: Cristino SnowAttending: Jos Castellanos To: Suzanne Cazares To: Maya Barron Reviewed by Maya Barron MD on 04/30; All test results are final unless otherwise noted. CBC W AUTO DIFF [facility] Ordered by Maya Barron [...] Auto See Note (0-2) N (Normal) Note: [id number] Ob material carrier: IG% IG% 100.1375 (B) Hct VFr Bld [...] test results are final unless otherwise noted. [facility] Ordered by Maya Barron [...] are final unless otherwise noted. Reported Physicians [facility] Ordered by Myaa Barron MD on 04/25/2020 Collected: 04/25/2020 Reported: 04/25/2020 22:11 Reported Physicians See Note None Note: Reported Physicians:Ordering: Aj Ferreiraending: Jos Rivas To: Maya Barron Reviewed by Maya Barron MD on 04/26; All test results are final unless otherwise noted. BHCG, QUANTITATIVE [facility] Ordered by Maya Barron MD on 04/25/2020 Collected: 04/25/2020 Reported: 04/25/2020 22:11 B-HCG [facility] 1758 MilliInternationalUnitsPerMilliLiter_[Arbitrary_Con (0-10) H (High) [...] are final unless otherwise noted. Reported Physicians [facility] Ordered by Maya Barron MD on 04/25/2020 Collected: 04/25/2020 Reported: 04/25/2020 22:11 Reported Physicians See Note None Note: Reported Physicians:Ordering: Aj Ferreiraending: Jos Rivas To: Maya Barron Reviewed by Maya Barron MD on 04/26; All test results are final unless otherwise noted. Urine culture [facility] Ordered by Maya Barron MD on 04/25/2020 Collected: 04/25/2020 Reported: 04/27/2020 04:50 Bacteria Ur Cult See Note None Note: NGNo growth.L1NG NOTES See Note None Note: @ NICOLE DATE was changed from 04/26 to 04/25/20@ by POMCYifan. Reviewed by Maya Barron MD on 04/30; All test results are final unless otherwise noted. Reported Physicians [facility] Ordered by Maya Barron MD on 04/25/2020 Collected: 04/25/2020 Reported: 04/27/2020 04:51 Reported Physicians See Note None Note: Reported Physicians:Ordering: Aj Ferreiraending: Jos Rivas To: Maya Barron Reviewed by Maya Barron MD on 04/30; All test results are final unless otherwise noted. ADD ON MICROSCOPIC [facility] Ordered by Maya Barron MD on 04/25/2020 Collected: 04/25/2020 Reported: 04/25/2020 21:54 ADD ON MICROSCOPIC See Note (0-5) None Note: NOTES OTHER/NOT INTERPRETED Bacteria UrnS Ql Micro SMALL AMOUNT Bacteria UrnS Ql Micro SMALL AMOUNT Bacteria UrnS Ql Micro L Bacteria UrnS Ql Micro Bacteria UrnS Ql Micro Bacteria UrnS Ql Micro Bacteria UrnS Ql Micro [id number] Bacteria UrnS Ql Micro Bacteria UrnS Ql [...] are final unless otherwise noted. Reported Physicians [facility] Ordered by Maya Barron MD on 04/25/2020 Collected: 04/25/2020 Reported: 04/25/2020 21:54 Reported Physicians See Note None Note: Reported Physicians:Ordering: Aj Ferreiraending: Jos Rivas To: Maya Barron Reviewed by Maya Barron MD on 04/26; All test results are final unless otherwise noted. URINALYSIS [facility] Ordered by Maya Barrno MD on 04/25/2020 Collected: 04/25/2020 Reported: 04/25/2020 21:54 Urobilinogen Ur Ql See Note (0.2-1 EU/dl) None Note: 0.2 EU/dl0.2 EU/[id number] E U/dlResponsible Observer: UROBILINOGEN UROBILINOGEN 300.4500 (C) RBC # Ur Strip NEGATIVE (NEGATIVE) None Note: Responsible Observer: BLOOD BLOOD 300.4650 (C) Prot Ur Ql Strip See Note (NEGATIVE) None Note: [id number] EResponsible Observer: PROTEIN PROTEIN 300.3750 (C) Ketones Ur Ql Strip See Note (NEGATIVE) None Note: [id number] EResponsible Observer: KETONE KETONE 300.3900 (C) Bilirub Ur Ql Strip.auto See Note (NEGATIVE) None Note: [id number] EResponsible Observer: BILIRUBIN BILIRUBIN 300.4550 (C) Glucose Ur Strip.auto-mCnc NEGATIVE (NEGATIVE) None Note: Responsible Observer: GLUCOSE GLUC OSE 300.3850 (C) Appearance Ur See Note (CLEAR) None Note: CLEARCLEARLCLEARResponsible Observ er: APPEARANCE APPEARANCE 300.3400 (A) Color Ur See Note None Note: YELLOWYELLOWLYELLOWResponsible Obs erver: COLOR COLOR 300.3300 (A) Leukocyte esterase Ur Ql Strip See Note (NEGATIVE) None Note: [id number]@DO MICR O!!!!Responsible Observer: LEUKOCYTES LEUKOCYTES 300.3575 (C) Nitrite Ur Ql Strip See Note (NEGATIVE) None Note: [id number] EResponsible Observer: NITRITE NITRITE 300.3650 (B) pH [...] are final unless otherwise noted. Reported Physicians [facility] Ordered by Maya Barron MD on 04/25/2020 Collected: 04/25/2020 Reported: 04/25/2020 21:54 Reported Physicians See Note None Note: Reported Physicians:Ordering: Aj Ferreiraending: Jos Rivas To: Maya Barron Reviewed by Maya Barron MD on 04/26; All test results are final unless otherwise noted. BHCG, QUANTITATIVE [facility] Ordered by Maya Barron [...] are final unless otherwise noted. Reported Physicians [facility] Ordered by Maya Barron MD on 04/18/2020 Collected: 04/18/2020 Reported: 04/18/2020 15:11 Reported Physicians See Note None Note: Reported Physicians:Ordering: Maya AlvarengaAttending: Maya Barron Reviewed by Maya Barron MD on 04/19; All test results are final unless otherwise noted. ADD ON MICROSCOPIC [facility] Ordered by Maya Barron MD on 04/16/2020 Collected: 04/16/2020 Reported: 04/16/2020 23:51 ADD ON MICROSCOPIC See Note (0-5) None Note: NOTES OTHER/NOT INTERPRETED Bacteria UrnS Ql Micro SMALL AMOUNT Bacteria UrnS Ql Micro SMALL AMOUNT Bacteria UrnS Ql Micro L Bacteria UrnS Ql Micro Bacteria UrnS Ql Micro Bacteria UrnS Ql Micro Bacteria UrnS Ql Micro [id number] Bacteria UrnS Ql Micro Bacteria UrnS Ql [...] are final unless otherwise noted. Reported Physicians [facility] Ordered by Maya Barron MD on 04/16/2020 Collected: 04/16/2020 Reported: 04/16/2020 23:52 Reported Physicians See Note None Note: Reported Physicians:Ordering: Damon VinodAttending: Damon, VinodCopy To: Maya Barron Reviewed by Maya Barrno MD on 04/17; All test results are final unless otherwise noted. UA W/ CULTURE IF ABNORMAL [facility] Ordered by Maya Barron MD on 04/16/2020 Collected: 04/16/2020 Reported: 04/16/2020 23:51 Urobilinogen Ur Ql See Note (0.2-1 EU/dl) None Note: 0.2 EU/dl0.2 EU/[id number] E U/dlResponsible Observer: UROBILINOGEN UROBILINOGEN 300.4500 (C) RBC # Ur Strip NEGATIVE (NEGATIVE) None Note: Responsible Observer: BLOOD BLOOD 300.4652 (C) Prot Ur Ql Strip See Note (NEGATIVE) None Note: [id number] EResponsible Observer: PROTEIN PROTEIN 300.3750 (C) Ketones Ur Ql Strip See Note (NEGATIVE) None Note: [id number] ble Observer: KETONE KETONE 300.3900 (C) Bilirub Ur Ql Strip.auto See Note (NEGATIVE) None Note: [id number] EResponsible Observer: BILIRUBIN BILIRUBIN 300.4550 (C) Glucose Ur Strip.auto-mCnc NEGATIVE (NEGATIVE) None Note: Responsible Observer: GLUCOSE GLUC OSE 300.3850 (C) Appearance Ur See Note (CLEAR) None Note: CLEARCLEARLCLEARResponsible Observ er: APPEARANCE APPEARANCE 300.3400 (A) Color Ur See Note None Note: YELLOWYELLOWLYELLOWResponsible Obs erver: COLOR COLOR 300.3330 (A) Leukocyte esterase Ur Ql Strip See Note (NEGATIVE) None Note: [id number] E@DO MICRO!!!!A Culture has been added to this specimen per established criteriaResponsible Observer: LEUKOCYTES LEUKOCYTES 300.3576 (C) Nitrite Ur Ql Strip See Note (NEGATIVE) None Note: [id number] EResponsible Observer: NITRITE NITRITE 300.3652 (B) pH [...] are final unless otherwise noted. Urine culture [facility] Ordered by Maya Barron [...] are final unless otherwise noted. Reported Physicians [facility] Ordered by Maya Barron MD on 04/16/2020 Collected: 04/16/2020 Reported: 04/18/2020 06:47 Reported Physicians See Note None Note: Reported Physicians:Ordering: Damon , VinodAttending: Damon, VinodCopy To: Maya Barron Reviewed by Maya Barron MD on 04/18; All test results are final unless otherwise noted. CBC W AUTO DIFF [facility] Ordered by Maya [...] Auto See Note (0-2) N (Normal) Note: 0.20.8D84320775490.2Responsible Ob material carrier: IG% IG% 100.1375 (B) Hct VFr Bld [...] are final unless otherwise noted. BHCG, QUANTITATIVE [facility] Ordered by Maya Barron [...] are final unless otherwise noted. Reported Physicians [facility] Ordered by Maya Barron MD on 04/16/2020 Collected: 04/16/2020 Reported: 04/16/2020 22:47 Reported Physicians See Note None Note: Reported Physicians:Ordering: Damon VinodAttending: Damon, VinodCopy To: Maya Barron Reviewed by Maya Barron MD on 04/17; All test results are final unless otherwise noted. CMP [facility] Ordered by Maya Barron [...] are final unless otherwise noted. Reported Physicians [facility] Ordered by Maya Barron MD on 04/16/2020 Collected: 04/16/2020 Reported: 04/16/2020 22:44 Reported Physicians See Note None Note: Reported Physicians:Ordering: Romel Josettending: Jose E JoseodCopy To: Maya Barron Reviewed by Maya Barron MD on 04/17; All test results are final unless otherwise noted. LIPASE [facility] Ordered by Maya Barron MD on 04/16/2020 Collected: 04/16/2020 Reported: 04/16/2020 22:44 Lipase SerPl-cCnc 107 enzyme_unit_per_liter (73-393) N (Normal) Note: Responsible Observer: Lipase Lipas e 400.2310 (G) Reviewed by Maya Barron MD on 04/17; All test results are final unless otherwise noted. Reported Physicians [facility] Ordered by Maya Barron MD on 04/16/2020 Collected: 04/16/2020 Reported: 04/16/2020 22:44 Reported Physicians See Note None Note: Reported Physicians:Ordering: Jose E JoseodAttending: Damon, VinodCopy To: Maya Barron Reviewed by Maya Barron MD on 04/17; All test results are final unless otherwise noted. Type and Screen [facility] Ordered by Maya Barron [...] are final unless otherwise noted. Reported Physicians [facility] Ordered by Maya Barron MD on 04/16/2020 Collected: 04/16/2020 Reported: 04/16/2020 23:09 Reported Physicians See Note None Note: Reported Physicians:Ordering: Damon , VinodAttending: Damon, VinodCopy To: Maya Barron Reviewed by Maya Barron MD on 04/17; All test results are final unless otherwise noted. CBC [facility] Ordered by Maya Barron MD on 04/10/[address] [place] [address], [id number] Collected: 04/10/2020 Reported: 04/11/2020 11:35 tel : [...] test results are final unless otherwise noted. [facility] Ordered by Maya Barron MD on 04/10/[address] [place] [address], [facility] Collected: 04/10/2020 Reported: 04/11/2020 11:35 tel : [...] by Maya Barron MD on 04/10/2020 [address] [place], [address] Collected: 04/10/2020 Reported: 04/11/2020 11:35 tel : ext. [phone] TSH 1.336 uIu/mL (0.5-5.8) None Note: Responsible Observer: AW Reviewed by Maya Barron MD on 04/12; All test results are final unless otherwise noted. -[facility] Ordered by Maya Barron MD on 02/25/2020 Collected: 02/25/2020 Reported: 02/28/2020 15:53 C trach rRNA XXX Ql ТАТЬЯНА+probe See Note (NOT DETECTED) None Note: NOT DETECTEDNOT DETECTEDLNOT DETEC TEDNOT [id number] DETECTEDResponsible Observer: C.Trach RNA Chlamydia trachomatis DNA-ТАТЬЯНА [id number] 913.9900 ([employer] N gonorrhoea rRNA XXX Ql ТАТЬЯНА+probe See Note (NOT DETECTED) None Note: NOT DETECTEDNOT DETECTEDLNOT DETEC TEDNOT [id number] DETECTEDResponsible Observer: GC RNA Neisseria gonorrhoeae DNA -ТАТЬЯНА 39333499 913.9905 ([employer] Chlamydia/GC DNA Note SEE NOTE None Note: The analytical performance charact eristics of thisassay, when used to test SurePath(TM) specimens have beendetermined by [employer]. The modifications havenot been cleared or approved by the FDA. This assay hasbeen validated pursuant to the CLIA regulations and isused for clinical purposes.For additional information, please refer tohttps://education.[employer].Wish/faq/SWN866(This link is being provided for information/educational purposes only.)THIS TEST WAS PERFORMED AT:[facility] [address]CLAUDY ONEILLesponsible Observer: GC/Chlam Note Chlamydia/GC DNA Note [id number] 913.9926 (A) NOTES See Note None Note: Source Of Specimen: URINE Reviewed by Maya Barron MD on 02/28; All test results are final unless otherwise noted. Reported Physicians [facility] Ordered by Maya Barron MD on 02/25/2020 Collected: 02/25/2020 Reported: 02/28/2020 15:54 Reported Physicians See Note None Note: Reported Physicians:Ordering: Cara Alvarengaending: Maya Barron Reviewed by Maya Barron MD on 02/28; All test results are final unless otherwise noted. Urine culture-[facility] Ordered by Maya Barron MD on 02/25/2020 Collected: 02/25/2020 Reported: 02/26/2020 13:38 Urine culture result No growth None Reviewed by Maya Barron MD on 02/27; All test results are final unless otherwise noted. Reported Physicians [facility] Ordered by Maya Barron MD on 02/25/2020 Collected: 02/25/2020 Reported: 02/26/2020 13:39 Reported Physicians See Note None Note: Reported Physicians:Ordering: Maya AlvarengaAttending: Maya Barron Reviewed by Maya Barron MD on 02/27; All test results are final unless otherwise noted. Test Office Lab Ordered by Maya Barron MD on 02/25/2020 [address] [place], [address] Specimen Source: Urine Collected: 02/25/2020 Reporte d: 02/25/2020 11:15 tel: Urine HCG neg (negative) N (Normal) Reviewed by Maya Barron MD on 02/24; All test results are final unless otherwise noted. Urinalysis w/out microscopy Office Lab Ordered by Maya Barron MD on 02/25/2020 [address] [place], [address] Specimen Source: Urine Collected: 02/25/2020 Reporte d: 02/25/2020 11:02 tel:[phone] bilirubin neg (neg) N (Normal) blood neg [...] otherwise noted. UA W/ CULTURE IF ABNORMAL [facility] Ordered by Maya Barron MD on 01/29/2020 Collected: 01/29/2020 Reported: 01/29/2020 00:22 Urobilinogen Ur Ql See Note (0.2-1 EU/dl) None Note: 1 EU/dl1 EU/dlL1 EU/dl1 EU/ujL6161 [id number] EU/dlResponsible Observer: UROBILINOGEN UROBILINOGEN 300.4500 (C) RBC # Ur Strip NEGATIVE (NEGATIVE) None Note: Responsible Observer: BLOOD BLOOD 300.4652 (C) Prot Ur Ql Strip See Note (NEGATIVE) None Note: NEGATIVENEGATIVELNEGATIVENEGATIVEL [id number] Observer: PROTEIN PROTEIN 300.3750 (C) Ketones Ur Ql Strip See Note (NEGATIVE) None Note: 15 mg/dL15 mg/dLL15 mg/dL15 mg/dLL [id number] mg/dLResponsible Observer: KETONE KETONE 300.3900 (C) Bilirub Ur Ql Strip.auto See Note (NEGATIVE) None Note: NEGATIVENEGATIVELNEGATIVENEGATIVEL [id number] Observer: BILIRUBIN BILIRUBIN 300.4550 (C) Glucose Ur Strip.auto-mCnc NEGATIVE (NEGATIVE) None Note: Responsible Observer: GLUCOSE GLUC OSE 300.3850 (C) Appearance Ur See Note (CLEAR) None Note: CLEARCLEARLCLEARCLEARLCLEARRespons ible Observer: APPEARANCE APPEARANCE 300.3400 (A) Color Ur See Note None Note: YELLOWYELLOWLYELLOWYELLOWLYELLOWRe sponsible Observer: COLOR COLOR 300.3330 (A) Leukocyte esterase Ur Ql Strip See Note (NEGATIVE) None Note: NEGATIVENEGATIVELNEGATIVENEGATIVEL [id number] Observer: LEUKOCYTES LEUKOCYTES 300.3576 (C) Nitrite Ur Ql Strip See Note (NEGATIVE) None Note: NEGATIVENEGATIVELNEGATIVENEGATIVEL [id number] Observer: NITRITE NITRITE 300.3652 (B) pH Ur [...] are final unless otherwise noted. Reported Physicians [facility] Ordered by Maya Barron MD on 01/29/2020 Collected: 01/29/2020 Reported: 01/29/2020 00:22 Reported Physicians See Note None Note: Reported Physicians:Ordering: Yoli NapolesAttending: Charles Silva To: Maya Barron Reviewed by Maya Barron MD on 01/30; All test results are final unless otherwise noted. BHCG,SERUM QUALITATIVE [facility] Ordered by Maya Barron [...] are final unless otherwise noted. Reported Physicians [facility] Ordered by Maya Barron MD on 01/28/2020 Collected: 01/28/2020 Reported: 01/28/2020 22:58 Reported Physicians See Note None Note: Reported Physicians:Ordering: Yoli NapolesAttending: Charles Silva To: Maya Barron Reviewed by Maya Barron MD on 01/30; All test results are final unless otherwise noted. CBC W AUTO DIFF [facility] Ordered by Maya Barron [...] Auto See Note (0-2) N (Normal) Note: 0.30.3L0.30.2Q69794916909.3Respons ible Observer: IG% IG% 100.1375 (B) Hct [...] test results are final unless otherwise noted. [facility] Ordered by Maya Barron [...] are final unless otherwise noted. Reported Physicians [facility] Ordered by Maya Barron MD on 01/28/2020 Collected: 01/28/2020 Reported: 01/28/2020 23:00 Reported Physicians See Note None Note: Reported Physicians:Ordering: Yoli NapolesAttending: Charles Silva To: Maya Barron Reviewed by Maya Barron MD on 01/30; All test results are final unless otherwise noted. Urinalysis w/out microscopy Office Lab Ordered by Maya Barron MD on [address] [place] [address], [phone] Specimen Source: Urine Collected: Reported: 2020 11:41 tel:[phone] bilirubin NEGATIVE (neg) N (Normal) blood NEGATIVE [...] Lab Ordered by Maya Barron MD on 12/27/[address] [place] [address], [phone] Specimen Source: Urine Collected: Reported: 2019 13:46 tel:[phone] Urine HCG negative (negative) N (Normal) Reviewed by Maya Barron MD on 12/26; All test results are final unless otherwise [...] Procedures and Surgical History Includes: Procedures from 12/27/2019 through 12/26/2020 Procedures Code Diagnosis Performing Provider Service Location Service Date REVISIT- office visit KAYLEIGH 23 weeks gestatio n of Maya Barron MD [facility], [facility] 12/05/2020 REVISIT- office visit KAYLEIGH 22 weeks gestatio n of Maya Barron MD [facility], [facility] 11/28/2020 no charge procedure NC Tension-type headache, unspe cified, intractable Maya Barron MD [facility], [facility] 11/21/2020 REVISIT- office visit KAYLEIGH 21 weeks gestatio n of Maya Barron MD [facility], [facility] 11/21/2020 REVISIT- office visit KAYLEIGH 20 weeks gestatio n of Maya Barron MD [facility], [facility] 11/14/2020 no charge procedure NC Palpitations Maya Barron MD [facility], [facility] 11/03/2020 no charge procedure NC Palpitations Maya Barron MD [facility], [facility] 10/31/2020 REVISIT- office visit KAYLEIGH 18 weeks gestatio n of Maya Barron MD [facility], [facility] 10/31/2020 REVISIT- office visit KAYLEIGH 17 weeks gestatio n of Maya Barron MD [facility], [facility] 10/24/2020 no charge procedure NC Palpitations Maya Barron MD [facility], [facility] 10/17/2020 REVISIT- office visit KAYLEIGH 16 weeks gestatio n of Maya Barron MD [facility], [facility] 10/17/2020 Holter Monitor, Physician review & interpretation only 09699 Palpitations Michel Villalba MD [facility] Outpt 10/11/2020 REVISIT- office visit KAYLEIGH 15 weeks gestatio n of Maya Barron MD [facility], [facility] 10/11/2020 REVISIT- office visit KAYLEIGH 13 weeks gestatio n of Maya Barron MD [facility], [facility] 09/27/2020 REVISIT- office visit KAYLEIGH 12 weeks gestatio n of Maya Barron MD [facility], [facility] 09/19/2020 EKG- Electrocardiogram/12 lead 43552 Chest pain, unspe cified Cat Gutierrez RPA [facility], [facility] 09/11/2020 REVISIT- office visit KAYLEIGH 10 weeks gestatio n of Cat Gutierrez [facility], [facility] 09/05/2020 REVISIT- office visit KAYLEIGH 8 weeks gestation of Maya Barron MD [facility], [facility] 08/22/2020 Urinalysis w/o Microscopy (Distinct Seperate service-same da y) 29388 Frequency of micturition- Urinary Frequency Maya Barron MD [facility], [facility] 08/15/2020 RAPID STREP 02084 Acute pharyngitis, unspecified Maya Barron MD [facility], [facility] 08/15/2020 Initial Obstetrical Care Office Visit OB Le ss than 8 weeks gestation of Cat De Pazing [facility], [facility] 021 Urinalysis w/o Microscopy 20873 Frequency of micturiti on- Urinary Frequency Maya Barron MD [facility], [facility] 07/19/2020 REVISIT- office visit KAYLEIGH Threatened Alicja Barron MD [facility], [facility] 05/26/2020 NO CHARGE- Nurse visit- OB establish [employer] Thr eatened , state, incidental Maya Barron MD [facility], [facility] 020 General Health Panel( CMP, CBC, TSH) 29896 Dysmenorrhe a, unspecified Maya Barron MD [facility], [facility] 04/10/2020 Venipuncture (routine) 09791 Dysmenorrhea, unspecified Mariela Barron MD [facility], [facility] 04/10/2020 Brief Emotional Behavior Assessment ( add -59 mod) 67284 Screening for Mental Health/Behavioral Disorder, Unspecified Maya Barron MD [facility], [facility] 04/10/2020 Urine Test 20828 Pelvic and perineal pain, Frequency of micturition- Urinary Frequency Maya Barron MD [facility], [facility] 02/25/2020 Urinalysis w/o Microscopy 97862 Frequency of micturiti on- Urinary Frequency Maya Barron MD [facility], [facility] 02/25/2020 Urine Test 59732 Amenorrhea, unspecified Maya Barron MD [facility], [facility] 12/27/2019 Surgical History Last Updated No surgical / [...] 12:00AM Act laya Encounters Includes: Encounters from 12/27/2019 through 12/26/2020 Encounter Provider Location Date Check-In Time Check-Out Time D iagnosis REVISIT- Routine (OB) Visit Maya Barron MD [facility], [facility] 12/26/2020 9:45AM 10:08AM telephone conversation Michel Villalba MD 1 12/14/2020 9:13AM 12/14/2020 11:59PM Atypical Chest Pain telephone conversation Michel Villalba MD 1 12/14/2020 6:45PM 12/14/2020 11:59PM Hypotension telephone conversation Maya Barron MD [facility] Vinh caruso [facility] 12/19/2020 12/14/2020 2:14PM 12/14/2020 11:59PM Fracture of Fifth Ce rvical Vertebral Body, History of Psychiatric Disorders, Reactive Airway Disease Problem visit - not contagious Bandar Cleveland PA-C [facility], [facility] 12/14/2020 2:08PM 2:52PM Tension-type Headach e REVISIT- Routine (OB) Visit Maya Barron MD [facility], [facility] 12/05/2020 11:17AM 12:08PM REVISIT- Routine (OB) Visit Maya Barron MD [facility], [facility] 11/28/2020 1:34PM 1:51PM Chronic Care Mgt - Office Visit Maya Barron MD [facility], [facility] 11/21/2020 2:10PM 2:35PM Fracture of Fift h Cervical Vertebral Body, History of Psychiatric Disorders, Reactive Airway Disease REVISIT- Routine (OB) Visit Maya Barron MD [facility], [facility] 11/21/2020 11:33AM 12:01PM REVISIT- Routine (OB) Visit Maya Barron MD [facility], [facility] 11/14/2020 9:55AM 10:36AM REVISIT- Routine (OB) Visit Maya Barron MD [facility], [facility] 11/07/2020 11:42AM 12:02PM OB- ILL VISIT Maya Barron MD [facility], [facility] 11/03/2020 3:45PM 4:29PM , Generalized Anxie ty Disorder, Panic Disorder, Chest Pain Chronic Care Mgt - Office Visit Maya Barron MD [facility], [facility] 11/03/2020 2:37PM 3:38PM Chronic Care Mgt - Office Visit Maya Barron MD [facility], [facility] 10/31/2020 3:23PM 3:24PM Fracture of Fift h Cervical Vertebral Body, History of Psychiatric Disorders, Reactive Airway Disease REVISIT- Routine (OB) Visit Maya Barron MD [facility], [facility] 10/31/2020 9:54AM 10:24AM Chronic Care Mgt - Office Visit Maya Barron MD [facility], [facility] 10/24/2020 2:16PM 11:59PM REVISIT- Routine (OB) Visit Maya Barron MD [facility], [facility] 10/24/2020 10:00AM 10:47AM REVISIT- Routine (OB) Visit Maya Barron MD [facility], [facility] 10/17/2020 11:24AM 12:12PM Chronic Care Mgt - Office Visit Maya Barron MD [facility], [facility] 10/17/2020 11:25AM 12:11PM Fracture of Fift h Cervical Vertebral Body, History of Psychiatric Disorders, Reactive Airway Disease REVISIT- Routine (OB) Visit Maya Barron MD [facility], [facility] 10/11/2020 9:44AM 10:15AM OB- ILL VISIT Maya Barron MD [facility], [facility] 10/04/2020 2:12PM 2:31PM Presyncope Syndrome, Tachyca rdia, Palpitations, Difficulty Breathing (Dyspnea), Weeks of Gestation - 13 REVISIT- Routine (OB) Visit Maya Barron MD [facility], [facility] 09/27/2020 1:36PM 1:59PM telephone conversation Michel Villalba MD 09/19/2020 9:43PM 09/19/2020 11:59PM Atypical Chest Pain REVISIT- Routine (OB) Visit Maya Barron MD [facility], [facility] 09/19/2020 9:48AM 10:14AM REVISIT- Routine (OB) Visit Cat Gutierrez [facility], [facility] 09/11/2020 3:22PM 4:16PM REVISIT- Routine (OB) Visit Cat Gutierrez [facility], [facility] 09/05/2020 9:37AM 10:00AM TCMNV phone call- NO CHARGE Cat Gutierrez [facility] 09/04/2020 09/05/2020 4:54PM 09/05/2020 11:59PM [Patient Encounter] Cat Gutierrez [facility] 08/31/2020 021 2:21PM 08/22/2020 11:59PM telephone conversation Michel Villalba MD 08/2808/22/2020 11:00AM 08/22/2020 11:59PM REVISIT- Routine (OB) Visit Maya Barron MD [facility], [facility] 08/22/2020 1:56PM 2:19PM sick visit Maya Barron MD [facility], [facility] 0 08/15/2020 9:36AM 10:12AM Upper Respiratory Infection Acute, Pollakiuria Obstetrics/ first visit Cat Gutierrez [facility], [facility] 08/09/2020 9:22AM 10:56AM followup Cat Gutierrez [facility] 0 08/02/2020 10:18AM 11:42AM Generalized Anxiety Disorder , Early Stage, Abdominal Pain telephone conversation Michel Villalba MD 07/26/2020 7:59AM 07/26/2020 11:59PM [Patient Encounter] Cat Huston Brenda [facility] 07/28/2020 021 2:20PM 07/26/2020 11:59PM followup Maya Barron MD [facility] 0 07/26/2020 10:39AM 11:02AM , Generalized Anxie ty Disorder sick visit Bandar Cleveland PA-C [facility] 3:36PM 4:30PM Pyrexia followup Maya Barron MD [facility] 0 07/19/2020 10:52AM 11:30AM , Generalized Anxie ty Disorder, Pollakiuria followup Maya Barron MD [facility] 1 09/11/2019 10:43AM 11:14AM Atypical Chest Pain, Adjustm ent Disorder followup Maya Barron MD [facility] 1 08/07/2019 10:43AM 10:59AM Missed followup Maya Barron MD [facility] 05/26 1:45PM 2:11PM with Threatened Problem visit - not contagious Maya Barron MD [facility] 05/24/2020 11:13AM 12:00PM with T hreatened [Patient Encounter] Maya Barron MD 05/24/2020 020 10:17AM 04/19/2020 11:59PM followup Maya Barron MD [facility] 1 11:51AM 12:08PM ANNUAL PE-followup Maya Barron MD [facility] 04/10/2020 8:42AM 9:13AM Routine History and Physical Adult (18 - 64 Yrs), Dysmenorrhea sick visit Maya Barron MD [facility] 0 03/06/2020 3:32PM 3:42PM Sinusitis sick visit Maya Barron MD [facility], [facility] 0 02/25/2020 10:46AM 11:12AM Pollakiuria, Female Pelvic P ain followup Maya Barron MD [facility], [facility] 01/31 2:25PM 2:51PM Back Strain followup Maya Barron MD [facility], [facility] 12/26 1:25PM 1:42PM Amenorrhea, Clostridium Difficile Insurance Includes: Active Insurance Policies Plan Name Member ID Group # Subscriber Relationship Effective Da greg 1 - MANAGED MEDICAID [facility] [id number] Georgiana Pickard Self 07/14/2020 - Unknown Advance Directives Includes: Current Advance DirectivesNo Advance Directives Recorded Health Concerns Includes: Active Health ConcernsNo Active Health Concerns Recorded Goals Includes: Active GoalsNo Active Goals Recorded Interventions Includes: Interventions for active GoalsNo Interventions Recorded Evaluations & Outcomes Includes: Evaluations & Outcomes for active GoalsNo Outcomes Recorded
--- OUTSIDE RECORDS SUMMARY | 2021-04-29 16:50 | CCD ---
Author Author [facility] Organization [facility] Address [address] [place] [address] Phone Care Team Providers Care Dampproofer Name Role Phone Anderson GILL, Maya Duke PP [phone] Christopher BLANCHARD, Kimberly Prajapati Unavailable Unavailable Reason [...] Cervicalgia neck pain 12/04/20 Maya Barron MD Referral - Physical Therapy Physical Therapy Tension-type headache, unspecified, intractable 03/14/21 Bandar Cleveland PA-C Future Appointments Date Time Location Provider REVISIT- Routine (OB) [facility]/16[facility]21 [facility] Barron MD REVISIT- Routine (OB) Visit 01/23/2021 10:00AM [facility] Barron MD REVISIT- Routine (OB) Visit 01/30/2021 10:00AM [facility] Barron MD REVISIT- Routine (OB) Visit 02/06/2021 10:00AM [facility] Bar[facility] MD REVISIT- Routine (OB) Visit 02/13/2021 10:00[facility] Barron MD REVISIT- Routine (OB) Visit 02/20/2021 11:45AM [facility] Barron MD REVISIT- Routine (OB) Visit 02/27/2021 10:00[facility] Bar[facility] MD REVISIT- Routine (OB) Visit 03/06/2021 10:00AM [facility] Barron MD REVISIT- Routine (OB) Visit 03/13/2021 10:00AM [facility] Barron MD REVISIT- Routine (OB) Visit 03/20/2021 10:00AM [facility] Barron MD REVISIT- Routine (OB) Visit 03/27/2021 10[facility] Bar[facility] MD Findings Encounter Date Community [...] or concerns sick visit with Cat Gutierrez [facility] 10/30/2018 Assessments Includes: Assessments for all [...] [ state, incidental] OB- ILL VISIT with Shelli Barron MD 11/03/2020 Fracture of fifth cervical [...] Tachycardia [Tachycardia, unspecified] OB- ILL VISIT with Shelli Barron MD 10/04/2020 Weeks of gestation - [...] 07/19/2020 [ state, incidental] followup with Maya Braron MD 07/19/2020 Adjustment disorder Counseling and reas surance provided today. Advised reaching out to group social worker for assistance with access to [...] history and physical (18 - 64 yrs) [facility] care with [facility], [facility] on health maintenance. 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 - 63 yrs) [facility] care with [facility], [facility] on health maintenance [Encounter for general adult medical examination with abnormal findings] ANNUAL PE-followup exam/ with Maya Barron MD 04/07/2019 [facility] Ph[facility]itis urgent visit with Bandar Cleveland PA-C 2018 [facility] Strain of muscle and tendon of front wall of thorax si ck visit with Cat Gutierrez [facility] 10/30/2018 Fracture of fifth cervical vertebral body No Fault with Wanda argueta [facility] 03/04/2018 Late effects of accident No Fault with Cat [facility] 0 03/04/2018 Instructions Instructions not supported [...] it 08/31/2020 - 09/07/2020 Provider: Cat Gutierrez [facility] Diagnosis: as directed - Insert 1 [...] 08/10/2020 - 08/17/2020 Pro vider: Cat Gutierrez [facility] Diagnosis: 1 PO BID Sertraline HCl 50 MG Oral Tablet 08/02/2020 - 08/22/2020 Pro vider: Cat Gutierrez [facility] Diagnosis: as directed - Take 1/2 [...] Recorded Vital Signs Includes: Vital Signs from 12/26/2019 through 12/25/2020 Vital Name 12/14/2020 02:15P 12/05/2020 11:47A 11/28/2020 01:44P 11/21/2020 11:41A 11/14/2020 10:01A Blood Pressure Sitting (mmHg) 102/50 Pulse Rate-Sitting (bpm) 98 80 88 76 72 Respiration Rate (breaths/min) 20 20 20 20 20 Weight (lb) 126.6 126 123 122 121 Oxygen Saturation (%) 98 Blood Pressure Sitting R 92/60 100/60 BP Cuff Size Regular Regular Regular Regular Blood Pressure Sitting L 100/62 100/60 Vital Name 11/07/2020 11:52A 11/03/2020 04:01P 10/31/2020 10:02A 10/24/2020 10:12A 10/17/2020 11:34A Pulse Rate-Sitting (bpm) 80 80 88 80 80 Respiration Rate (breaths/min) 20 20 20 20 20 Weight (lb) 121 117 120 120 118 BP Cuff Size Regular Regular Regular Regular Regular Blood Pressure Sitting L 92/54 100/62 100/60 100/60 110/56 Vital Name 10/11/2020 09:56A 10/04/2020 02:18P 09/27/2020 01:44P 09/19/2020 09:58A 09/11/2020 03:39P Blood Pressure Sitting (mmHg) 104/60 Pulse Rate-Sitting (bpm) 76 116 76 76 Respiration Rate (breaths/min) 20 24 20 20 Weight (lb) 120 118 120 119 118 Blood Pressure Sitting R 100/60 BP Cuff Size Regular Regular Regular Regular Blood Pressure Sitting L 110/60 98/62 100/60 Vital Name 09/05/2020 09:48A 08/22/2020 02:14P 08/15/2020 09:54A 08/09/2020 09:27A 08/02/2020 10:58A Blood Pressure Sitting (mmHg) 110/68 112/60 100/72 90/50 98/60 Pulse Rate-Sitting (bpm) 78 72 72 64 Respiration Rate (breaths/min) 18 20 20 Weight (lb) 119 121 121 123 Temp-Tympanic (F) 97.3 Height (in) 65 Body Mass Index (kg/m2) 20.1 Body Surface Area (m2) 1.60 Vital Name 07/26/2020 10:46A 07/25/2020 04:09P 07/19/2020 11:05A 07/11/2020 10:56A 06/07/2020 10:51A Blood Pressure Sitting (mmHg) 118/76 116/80 120/80 124/80 Pulse Rate-Sitting (bpm) 86 80 114 78 72 Respiration Rate (breaths/min) 18 20 18 20 Weight (lb) 124 126 121.6 125 119 Oxygen Saturation (%) 98 98 98 BP Cuff Size Regular Blood Pressure Sitting L 102/62 Temp-Tympanic (F) 98.2 Height (in) 65 65 65 64 Body Mass Index (kg/m2) 20.6 20.2 20.8 2 0.4 Body Surface Area (m2) 1.61 1.60 1.62 1. 57 Temp-Oral (F) 98.5 98.2 98.5 Vital Name 05/26/2020 01:50P 05/24/2020 12:01P 04/19/2020 11:58A 04/10/2020 08:48A 03/06/2020 03:38P Blood Pressure Sitting (mmHg) 118/72 110/72 108/60 118/82 Pulse Rate-Sitting (bpm) 86 87 72 102 Respiration Rate (breaths/min) 20 20 20 20 Weight (lb) 118.2 117.8 116 116.2 Oxygen Saturation (%) 97 Height (in) 64 Body Mass Index (kg/m2) 19.9 Body Surface Area (m2) 1.55 Vital Name 02/25/2020 10:59A 02/01/2020 02:38P 12/27/2019 01:31P Blood Pressure Sitting (mmHg) 90/58 Pulse Rate-Sitting (bpm) 72 88 68 Respiration Rate (breaths/min) 20 18 Pain Level 6 Results Includes: Results from 12/26/2019 through 12/25/2020 LIPASE SERUM [facility] Ordered by Maya Barron MD on 12/16/2020 Collected: 12/16/2020 Reported: 12/16/2020 16:29 LIPASE 27 U/L (13 - 60) None Note: Responsible Observer: (DW) Reviewed by Maya Barron MD on 12/18; All test results are final unless otherwise noted. Reported Physicians [facility] Ordered by Maya Barron MD on 12/16/2020 Collected: 12/16/2020 Reported: 12/16/2020 16:29 Reported Physicians See Note None Note: Reported Physicians:Ordering: Sunshine ALONSOending: ALLYN PAPPASConsulting: Rubén BARRON To: Miguel Gonsalez To: ALLYN PAPPAS Reviewed by Maya Barron MD on 12/18; All test results are final unless otherwise noted. PT/PTT [facility] Ordered by Maya Barron [...] Thrombosis, Pulmonary Embolus, Tissue heart valves, Acute PR Atrial Fibrillation, Valvular heart disease and recurrent Systemic Embolism. - International Normalized Ratio (INR): 2.5 - 3.5 for Mechanical Prosthetic valve.Responsible Observer: (ABIOLA) Reviewed by Maya Barron MD on 12/18; All test results are final unless otherwise noted. Reported Physicians [facility] Ordered by Maya Barron MD on 12/16/2020 Collected: 12/16/2020 Reported: 12/16/2020 16:30 Reported Physicians See Note None Note: Reported Physicians:Ordering: Sunshine ALONSOending: ALLYN PAPPASConsulting: Rubén BARRON To: Miguel Gonsalez To: ALLYN PAPPAS Reviewed by Maya Barron MD on 12/18; All test results are final unless otherwise noted. CBC W/AUTOMATED DIFF [facility] Ordered by Maya Barron [...] are final unless otherwise noted. Reported Physicians [facility] Ordered by Maya Barron MD on 12/16/2020 Collected: 12/16/2020 Reported: 12/16/2020 16:00 Reported Physicians See Note None Note: Reported Physicians:Ordering: Sunshine ALONSOending: ALLYN PAPPASConsulting: Rubén BARRON To: Miguel Gonsalez To: ALLYN PAPPAS Reviewed by Maya Barron MD on 12/18; All test results are final unless otherwise noted. COMPREHENSIVE METABOLIC PANEL [facility] Ordered by Maya [...] are final unless otherwise noted. Reported Physicians [facility] Ordered by Maya Barron MD on 12/16/2020 Collected: 12/16/2020 Reported: 12/16/2020 16:30 Reported Physicians See Note None Note: Reported Physicians:Ordering: Sunshine ALONSOending: ALLYN PAPPASConsulting: Rubén BARRON To: Miguel Gonsalez To: ALLYN PAPPAS Reviewed by Maya Barron MD on 12/18; All test results are final unless otherwise noted. TROPONIN T [facility] Ordered by Maya Barron MD on 12/16/2020 Collected: 12/16/2020 Reported: 12/16/2020 16:30 TROPONIN T <0.01 NG/ML (0.00 - 0.10) None Note: TROPONIN T0.1 ng/ml Recommended as the clinical threshold value forTroponin T.Responsible Observer: (ABIOLA) Reviewed by Maya Barron MD on 12/18; All test results are final unless otherwise noted. Reported Physicians [facility] Ordered by Maya Barron MD on 12/16/2020 Collected: 12/16/2020 Reported: 12/16/2020 16:30 Reported Physicians See Note None Note: Reported Physicians:Ordering: VENUS ALONSOAttending: ALLYN PAPPASConsulting: Rubén BARRON To: Miguel Gonsalez To: ALLYN PAPPAS Reviewed by Maya Barron MD on 12/18; All test results are final unless otherwise noted. TSH HIGHLY SENSITIVE [facility] Ordered by Maya Barron MD on 12/16/2020 Collected: 12/16/2020 Reported: 12/16/2020 17:28 TSH 1.41 uIU/mL (0.47 - 5.01) None Note: Responsible Observer: (ABIOLA) Reviewed by Maya Barron MD on 12/18; All test results are final unless otherwise noted. Reported Physicians [facility] Ordered by Maya Barron MD on 12/16/2020 Collected: 12/16/2020 Reported: 12/16/2020 17:28 Reported Physicians See Note None Note: Reported Physicians:Ordering: RAVI ALONSODEAttending: ALLYN PAPPASConsulting: Rubén BARRON To: Miguel Gonsalez To: ALLYN PAPPAS Reviewed by Maya Barron MD on 12/18; All test results are final unless otherwise noted. TSH [facility] Ordered by Maya Barron MD on 12/13/2020 Collected: 12/13/2020 Reported: 12/13/2020 19:02 TSH SerPl DL<=0.005 mIU/L-aCnc 1.02 MicroInternationalUnitsPerMilliLiter_[Arbitrary_Con (0.35-5. 50) N (Normal) Note: Responsible Observer: TSH TSH 600 .7055 (D) Reviewed by Maya Barron MD on 12/15; All test results are final unless otherwise noted. Reported Physicians [facility] Ordered by Maya Barron MD on 12/13/2020 Collected: 12/13/2020 Reported: 12/13/2020 19:02 Reported Physicians See Note None Note: Reported Physicians:Ordering: Conchis Omerending: Kevin Orozco To: Maya Barron Reviewed by Maya Barron MD on 12/15; All test results are final unless otherwise noted. CBC W AUTO DIFF [facility] Ordered by Maya Barron [...] Auto See Note (0-2) N (Normal) Note: [id number] Ob banquet server: IG% IG% 100.1375 (B) Hct VFr [...] results are final unless otherwise noted. PT/PTT [facility] Ordered by Maya Barron [...] are final unless otherwise noted. Reported Physicians [facility] Ordered by Maya Barron MD on 12/13/2020 Collected: 12/13/2020 Reported: 12/13/2020 19:02 Reported Physicians See Note None Note: Reported Physicians:Ordering: Conchis Omerending: Kevin Orozco To: Maya Barron Reviewed by Maya Barron MD on 12/15; All test results are final unless otherwise noted. TROPONIN [facility] Ordered by Maya Barron MD on 12/13/2020 Collected: 12/13/2020 Reported: 12/13/2020 19:02 Troponin I SerPl-mCnc Less Than 0.015 (0.00-0.09) N (Normal) Note: Less than 0.09 NG/ML Negative 0.10 - 0.77 NG/ML High Risk0.78 NG/ML or Greater PositiveThe WHO defined the cutoff (definition for diagnosis of PR)for this method as 0.78 ng/ml.Responsible Observer: Troponin I Troponin I 600.1101 (G) Reviewed by Maya Barron MD on 12/15; All test results are final unless otherwise noted. Reported Physicians [facility] Ordered by Maya Barron MD on 12/13/2020 Collected: 12/13/2020 Reported: 12/13/2020 19:02 Reported Physicians See Note None Note: Reported Physicians:Ordering: Conchis Omerending: Kevin Orozco To: Maya Barron Reviewed by Maya Barron MD on 12/15; All test results are final unless otherwise noted. ADD ON MICROSCOPIC [facility] Ordered by Maya Barron MD on 12/13/2020 Collected: 12/13/2020 Reported: 12/13/2020 18:32 ADD ON MICROSCOPIC See Note (0-5) None Note: NOTES OTHER/NOT INTERPRETED Bacteria UrnS Ql Micro MODERATE AMOUNT Bacteria UrnS Ql Micro MODERATE AMOUNT Bacteria UrnS Ql Micro L Bacteria UrnS Ql Micro Bacteria UrnS Ql Micro Bacteria UrnS Ql Micro Bacteria UrnS Ql Micro [id number] Bacteria UrnS Ql Micro Bacteria UrnS Ql [...] are final unless otherwise noted. Reported Physicians [facility] Ordered by Maya Barron MD on 12/13/2020 Collected: 12/13/2020 Reported: 12/13/2020 18:33 Reported Physicians See Note None Note: Reported Physicians:Ordering: Conchis Omerending: Kevin Orozco To: Maya Barron Reviewed by Maya Barron MD on 12/15; All test results are final unless otherwise noted. UA W/ CULTURE IF ABNORMAL [facility] Ordered by Maya Barorn MD on 12/13/2020 Collected: 12/13/2020 Reported: 12/13/2020 18:32 Urobilinogen Ur Ql See Note (0.2-1 EU/dl) None Note: 0.2 EU/dl0.2 EU/[id number] E U/dlResponsible Observer: UROBILINOGEN UROBILINOGEN 300.4500 (C) RBC # Ur Strip NEGATIVE (NEGATIVE) None Note: Responsible Observer: BLOOD BLOOD 300.4652 (C) Prot Ur Ql Strip See Note (NEGATIVE) None Note: [id number] EResponsible Observer: PROTEIN PROTEIN 300.3750 (C) Ketones Ur Ql Strip See Note (NEGATIVE) None Note: [id number] EResponsible Observer: KETONE KETONE 300.3900 (C) Bilirub Ur Ql Strip.auto See Note (NEGATIVE) None Note: [id number] EResponsible Observer: BILIRUBIN BILIRUBIN 300.4550 (C) Glucose Ur Strip.auto-mCnc NEGATIVE (NEGATIVE) None Note: Responsible Observer: GLUCOSE GLUC OSE 300.3850 (C) Appearance Ur See Note (CLEAR) None Note: CLEARCLEARLCLEARResponsible Observ er: APPEARANCE APPEARANCE 300.3400 (A) Color Ur See Note None Note: YELLOWYELLOWLYELLOWResponsible Obs erver: COLOR COLOR 300.3330 (A) Leukocyte esterase Ur Ql Strip See Note (NEGATIVE) None Note: [id number]@DO MICR O!!!!A Culture has been added to this specimen per established criteriaResponsible Observer: LEUKOCYTES LEUKOCYTES 300.3576 (C) Nitrite Ur Ql Strip See Note (NEGATIVE) None Note: [id number] EResponsible Observer: NITRITE NITRITE 300.3652 (B) pH [...] are final unless otherwise noted. Urine culture [facility] Ordered by Maya Barron MD on 12/13/2020 Collected: 12/13/2020 Reported: 12/14/2020 13:24 Bacteria Ur Cult See Note None Note: NGNo growth.L1NG NOTES See Note None Note: @12/13/20 1832: Urine culture adde d. RFLXG = CULT.ADD. Reviewed by Maya Barron MD on 12/15; All test results are final unless otherwise noted. Reported Physicians [facility] Ordered by Maya Barron MD on 12/13/2020 Collected: 12/13/2020 Reported: 12/14/2020 13:24 Reported Physicians See Note None Note: Reported Physicians:Ordering: Conchis Omerending: Kevin Orozco To: Maya Barron Reviewed by Maya Barron MD on 12/15; All test results are final unless otherwise noted. TROPONIN T [facility] Ordered by Maya Barron MD on 12/09/2020 Collected: 12/09/2020 Reported: 12/09/2020 01:32 TROPONIN T <0.01 NG/ML (0.00 - 0.10) None Note: TROPONIN T0.1 ng/ml Recommended as the clinical threshold value forTroponin T.Responsible Observer: (AB) Reviewed by Maya Barron MD on 12/12; All test results are final unless otherwise noted. Reported Physicians [facility] Ordered by Maya Barron MD on 12/09/2020 Collected: 12/09/2020 Reported: 12/09/2020 01:32 Reported Physicians See Note None Note: Reported Physicians:Ordering: MARQUISE TOMLINSON CAttending: MARQUISE SOOTConsulting: Rubén BARRON To: Clare SOTO To: MARQUISE SOTO Reviewed by Maya Barron MD on 12/12; All test results are final unless otherwise noted. TROPONIN T [facility] Ordered by Maya Barron MD on 12/08/2020 Collected: 12/08/2020 Reported: 12/08/2020 22:36 TROPONIN T <0.01 NG/ML (0.00 - 0.10) None Note: TROPONIN T0.1 ng/ml Recommended as the clinical threshold value forTroponin T.Responsible Observer: (AB) Reviewed by Maya Barron MD on 12/12; All test results are final unless otherwise noted. Reported Physicians [facility] Ordered by Maya Barron MD on 12/08/2020 Collected: 12/08/2020 Reported: 12/08/2020 22:36 Reported Physicians See Note None Note: Reported Physicians:Ordering: MARQUISE TOMLINSON CAttending: MARQUISE SOTOConopaling: Rubén BARRON To: Clare SOTO To: MARQUISE SOTO Reviewed by Maya Barron MD on 12/12; All test results are final unless otherwise noted. COMPREHENSIVE METABOLIC PANEL [facility] Ordered by Maya [...] are final unless otherwise noted. Reported Physicians [facility] Ordered by Maya Barron MD on 12/08/2020 Collected: 12/08/2020 Reported: 12/08/2020 22:36 Reported Physicians See Note None Note: Reported Physicians:Ordering: MARQUISE TOMLINSON CAttending: Segundo SOTOing: Rubén BARRON To: Clare SOTO To: MARQUISE SOTO Reviewed by Maya Barron MD on 12/12; All test results are final unless otherwise noted. LIPASE SERUM [facility] Ordered by Maya Barron MD on 12/08/2020 Collected: 12/08/2020 Reported: 12/08/2020 22:32 LIPASE 33 U/L (13 - 60) None Note: Responsible Observer: (AB) Reviewed by Maya Barron MD on 12/12; All test results are final unless otherwise noted. Reported Physicians [facility] Ordered by Maya Barron MD on 12/08/2020 Collected: 12/08/2020 Reported: 12/08/2020 22:32 Reported Physicians See Note None Note: Reported Physicians:Ordering: MARQUISE TOMLINSON CAttending: Kym SOTO: Rubén BARRON To: Clare SOTO To: MARQUISE SOTO Reviewed by Maya Barron MD on 12/12; All test results are final unless otherwise noted. CBC W AUTO DIFF [facility] Ordered by Maya Barron [...] Auto See Note (0-2) N (Normal) Note: [id number] Ob banquet server: IG% IG% 100.1375 (B) Hct VFr [...] results are final unless otherwise noted. D-DIMER [facility] Ordered by Maya Barron [...] are final unless otherwise noted. Reported Physicians [facility] Ordered by Maya Barron MD on 12/01/2020 Collected: 12/01/2020 Reported: 12/01/2020 18:19 Reported Physicians See Note None Note: Reported Physicians:Ordering: Talisha is, TimothyAttending: Tramaine PardoothyCopy To: Maya Barron Reviewed by Maya Barron MD on 12/04; All test results are final unless otherwise noted. TROPONIN [facility] Ordered by Maya Barron MD on 12/01/2020 Collected: 12/01/2020 Reported: 12/01/2020 18:18 Troponin I SerPl-mCnc Less Than 0.015 (0.00-0.09) N (Normal) Note: Less than 0.09 NG/ML Negative 0.10 - 0.77 NG/ML High Risk0.78 NG/ML or Greater PositiveThe WHO defined the cutoff (definition for diagnosis of PR)for this method as 0.78 ng/ml.Responsible Observer: Troponin I Troponin I 600.1101 (G) Reviewed by Maya Barron MD on 12/04; All test results are final unless otherwise noted. Reported Physicians [facility] Ordered by Maya Barron MD on 12/01/2020 Collected: 12/01/2020 Reported: 12/01/2020 18:19 Reported Physicians See Note None Note: Reported Physicians:Ordering: Talisha bauer TimothyAttending: Tramaine PardoothyCopyifna To: Maya Barron Reviewed by Maya Barron MD on 12/04; All test results are final unless otherwise noted. Cepheid CT/NG RT-PCR [facility] Ordered by Maya Barron [...] may result in failure to detect the targetorganisms.24524-1T trach DNA Vag Ql ТАТЬЯНА+probeLNCHLAMNC. trachomatis NOT [id number]. trachomatis NOT [id number] gonorrhoea rRNA Vag Ql ТАТЬЯНА+probeLNNEIGNN.gonorrhoeae NOT [id number].gonorrhoeae NOT DETECTED Reviewed by Maya Barron MD on 11/29; All test results are final unless otherwise noted. Reported Physicians [facility] Ordered by Maya Barron MD on 11/29/2020 Collected: 11/29/2020 Reported: 11/29/2020 07:03 Reported Physicians See Note None Note: Reported Physicians:Ordering: Estela SamuelAttending: Vianey Up To: Maya Barron Reviewed by Maya Barron MD on 11/29; All test results are final unless otherwise noted. AFFIRM [facility] Ordered by Maya Barron MD on 11/29/2020 Collected: 11/29/2020 Reported: 11/30/2020 13:21 Dionna species DNA Probe NOT DETECTED (NOT DETECTED) None Note: THIS TEST WAS PERFORMED AT:[employer] [facility] [address] [id number] ONEILLesponsible Observer: Dionna DNA Dionna species DNA Probe [id number] 913.2350 ([employer] [facility]) Gardnerella DNA Probe DETECTED (NOT DETECTED) H (High) Note: Increased levels of G. vaginalis m ay not be significantin the absence of signs and symptoms of bacterialvaginosis.Responsible Observer: Gardnerella DNA Gardnerella DNA Probe [id number] 913.2345 ([employer] [facility]) Trichomonas DNA Probe NOT DETECTED (NOT DETECTED) None Note: Responsible Observer: Trichomonas DNA Trichomonas DNA Probe [id number] 913.2340 ([employer] [facility]) Reviewed by Maya Barron MD on 12/01; All test results are final unless otherwise noted. Reported Physicians [facility] Ordered by Maya Barron MD on 11/29/2020 Collected: 11/29/2020 Reported: 11/30/2020 13:21 Reported Physicians See Note None Note: Reported Physicians:Ordering: Estela SamuelAttending: Vianey Up To: Maya Barron Reviewed by Maya Barron MD on 12/01; All test results are final unless otherwise noted. UA W/ CULTURE IF ABNORMAL [facility] Ordered by Maya Barron MD on 11/29/2020 Collected: 11/29/2020 Reported: 11/29/2020 04:49 Urobilinogen Ur Ql See Note (0.2-1 EU/dl) None Note: 0.2 EU/dl0.2 EU/[id number] E U/dlResponsible Observer: UROBILINOGEN UROBILINOGEN 300.4500 (C) RBC # Ur Strip NEGATIVE (NEGATIVE) None Note: Responsible Observer: BLOOD BLOOD 300.4652 (C) Prot Ur Ql Strip See Note (NEGATIVE) None Note: [id number] EResponsible Observer: PROTEIN PROTEIN 300.3750 (C) Ketones Ur Ql Strip See Note (NEGATIVE) None Note: [id number] EResponsible Observer: KETONE KETONE 300.3900 (C) Bilirub Ur Ql Strip.auto See Note (NEGATIVE) None Note: [id number] EResponsible Observer: BILIRUBIN BILIRUBIN 300.4550 (C) Glucose Ur Strip.auto-mCnc NEGATIVE (NEGATIVE) None Note: Responsible Observer: GLUCOSE GLUC OSE 300.3850 (C) Appearance Ur See Note (CLEAR) None Note: CLEARCLEARLCLEARResponsible Observ er: APPEARANCE APPEARANCE 300.3400 (A) Color Ur See Note None Note: YELLOWYELLOWLYELLOWResponsible Obs erver: COLOR COLOR 300.3330 (A) Leukocyte esterase Ur Ql Strip See Note (NEGATIVE) None Note: [id number]@DO MICR O!!!!A Culture has been added to this specimen per established criteriaResponsible Observer: LEUKOCYTES LEUKOCYTES 300.3576 (C) Nitrite Ur Ql Strip See Note (NEGATIVE) None Note: [id number] EResponsible Observer: NITRITE NITRITE 300.3652 (B) pH [...] are final unless otherwise noted. Urine culture [facility] Ordered by Maya Barron MD on 11/29/2020 Collected: 11/29/2020 Reported: 11/30/2020 07:23 Bacteria Ur Cult See Note None Note: NGNo growth.L1NG NOTES See Note None Note: @11/29/20 0450: Urine culture adde d. RFLXG = CULT.ADD. Reviewed by Maya Barron MD on 12/01; All test results are final unless otherwise noted. Reported Physicians [facility] Ordered by Maya Barron MD on 11/29/2020 Collected: 11/29/2020 Reported: 11/30/2020 07:23 Reported Physicians See Note None Note: Reported Physicians:Ordering: Gideon Samuelending: Vianey Up To: Maya Barron Reviewed by Maya Barron MD on 12/01; All test results are final unless otherwise noted. ADD ON MICROSCOPIC [facility] Ordered by Maya Barron [...] are final unless otherwise noted. Reported Physicians [facility] Ordered by Maya Barron MD on 11/29/2020 Collected: 11/29/2020 Reported: 11/29/2020 04:51 Reported Physicians See Note None Note: Reported Physicians:Ordering: Gideon Samuelending: Vianey Up To: Maya Barron Reviewed by Maya Barron MD on 11/29; All test results are final unless otherwise noted. TROPONIN [facility] Ordered by Maya Barron MD on 11/20/2020 Collected: 11/20/2020 Reported: 11/20/2020 20:04 Troponin I SerPl-mCnc Less Than 0.015 (0.00-0.09) N (Normal) Note: Less than 0.09 NG/ML Negative 0.10 - 0.77 NG/ML High Risk0.78 NG/ML or Greater PositiveThe WHO defined the cutoff (definition for diagnosis of PR)for this method as 0.78 ng/ml.Responsible Observer: Troponin I Troponin I 600.1101 (G) Reviewed by Maya Barron MD on 11/22; All test results are final unless otherwise noted. Reported Physicians [facility] Ordered by Maya Barron MD on 11/20/2020 Collected: 11/20/2020 Reported: 11/20/2020 20:05 Reported Physicians See Note None Note: Reported Physicians:Ordering: Les Vanegas AAttending: Fady Raza To: Maya Barron Reviewed by Maya Barron MD on 11/22; All test results are final unless otherwise noted. Cepheid SARS/FLU/RSV RT-PCR [facility] Ordered by Maya Barron [...] by FDA under an EUA for use bynew [facility] at [facility] vegashoria[id number]-zcu CoV RNA Resp Ql ТАТЬЯНА+ruwsyUJIEHUCKQYD-XBK-9 NOT [id number]-DNI-5 NOT FLDXYPWY13636-4OAKLH RNA Resp Ql ТАТЬЯНА+probeLNNFLUAInfluenza A Not Det [id number] A Not Tjnimquk61370-1TVNWE RNA Resp Ql ТАТЬЯНА+probeLNNINBInfluenza B Not [id number] B Not Kkkeynwv56704- 2RSV RNA Resp Ql ТАТЬЯНА+probeLNNRSVRSV Not [id number] Not Detected Reviewed by Maya Barron MD on 11/20; All test results are final unless otherwise noted. Reported Physicians [facility] Ordered by Maya Barron MD on 11/18/2020 Collected: 11/18/2020 Reported: 11/18/2020 23:58 Reported Physicians See Note None Note: Reported Physicians:Ordering: Aj Snowending: Jos Castellanos To: Maya Barron Reviewed by Maya Barron MD on 11/20; All test results are final unless otherwise noted. URINE DRUG SCREEN -([facility]) [facility] Ordered by Maya Barron MD on 11/17/2020 Collected: 11/17/2020 Reported: 11/17/2020 14:19 PCP Ur Ql Scn>25 ng/mL See Note (Cutoff 25) None Note: [id number] E@Reenter manual test result: NEGATIVE@by Claudia Tello at 11/17/20 1414.Responsible Observer: PCP Urine Phencyclidine (PCP) Scrn 400.5120 (A) THC Ur Ql Scn>50 ng/mL See Note (Cutoff 50) None Note: [id number] EResponsible Observer: Marijuana (THC) Ur Marijuana (THC) Screen 400.5110 (A) Benzodiaz Ur Ql Scn See Note (Cutoff 150) None Note: [id number] E@Reenter manual test result: NEGATIVE@by Claudia Tello at 11/17/20 1418.Responsible Observer: Benzodiazepines Urine Benzodiazepines Screen 400.5170 (A) Opiates Ur Ql Scn See Note (Cutoff 100) None Note: [id number] E@Reenter manual test result: NEGATIVE@by Claudia Tello at 11/17/20 1418.Responsible Observer: Opiates Urine Opiates Screen 400.5150 (A) Tricyclics Ur Ql Scn See Note (Cutoff 300) None Note: [id number] E@Reenter manual test result: NEGATIVE@by Claudia Tello at 11/17/20 1418.Responsible Observer: TCA Ur Tricyclic Antidepressants 400.5180 (A) Cocaine Ur Ql Scn See Note (Cutoff 150) None Note: [id number] E@Reenter manual test result: NEGATIVE@by Claudia Tello at 11/17/20 1417.Responsible Observer: Cocaine Urine Cocaine Screen 400.5130 (A) Propoxyph+Nor Ur Ql Scn See Note (Cutoff 300) None Note: [id number] E@Reenter manual test result: NEGATIVE@by Claudia Tello at 11/17/20 1418.Responsible Observer: Propoxyphene Urine Propoxyphene Screen 400.5220 (A) Methadone Ur Ql Scn See Note (Cutoff 200) None Note: [id number] E@Reenter manual test result: NEGATIVE@by Claudia Tello at 11/17/20 1418.Responsible Observer: Methadone Urine Methadone Screen 400.5190 (A) Methamphet Ur Ql Scn See Note (Cutoff 500) None Note: [id number] E@Reenter manual test result: NEGATIVE@by Claudia Tello at 11/17/20 1417.Responsible Observer: Methamphetamine Urine Methamphetamines Screen 400.5140 (A) oxyCODONE Ur Ql Scn See Note (Cutoff 100) None Note: [id number] E@Reenter manual test result: NEGATIVE@by Claudia Tello at 11/17/20 1418.Responsible Observer: Oxycodone Urine Oxycodone Screen 400.5210 (A) Buprenorphine Ur Ql See Note (Cutoff 10) None Note: [id number] E@Reenter manual test result: NEGATIVE@by Claudia Tello at 11/17/20 1419.Responsible Observer: Buprenorphine Urine Buprenorphine Screen 400.5230 (A) Amphetamines Ur Ql Scn>500 ng/mL See Note (Cutoff 500) None Note: [id number] E@Reenter manual test result: NEGATIVE@by Claudia Telol at 11/17/20 1418.Responsible Observer: Amphetamines Urine Amphetamines Screen 400.5160 (A) Barbiturates Ur Ql Scn>200 ng/mL See Note (Cutoff 200) None Note: [id number] E@Reenter manual test result: NEGATIVE@by Claudia Tello at 11/17/20 1418.Responsible Observer: Barbiturates Urine Barbiturates 400.5200 (A) Reviewed by Maya Barron MD on 11/20; All test results are final unless otherwise noted. FREE T4 (LAB) [facility] Ordered by Maya Barron MD on 11/17/2020 Collected: 11/17/2020 Reported: 11/17/2020 14:34 T4 Free SerPl-mCnc 0.78 NanoGramsPerDeciLiter_[Mass_Concentration_Units] (0.89-1.76) L (Low) Note: Responsible Observer: FREE T4 Free Thyroxine 600.7005 (D) Reviewed by Maya Barron MD on 11/20; All test results are final unless otherwise noted. Reported Physicians [facility] Ordered by Maya Barron MD on 11/17/2020 Collected: 11/17/2020 Reported: 11/17/2020 14:34 Reported Physicians See Note None Note: Reported Physicians:Ordering: Cara Alvarengaending: Maya Barron Reviewed by Maya Barron MD on 11/20; All test results are final unless otherwise noted. TSH [facility] Ordered by Maya Barron MD on 11/17/2020 Collected: 11/17/2020 Reported: 11/17/2020 14:34 TSH SerPl DL<=0.005 mIU/L-aCnc 1.38 MicroInternationalUnitsPerMilliLiter_[Arbitrary_Con (0.35-5. 50) N (Normal) Note: Responsible Observer: TSH TSH 600 .7055 (D) Reviewed by Maya Barron MD on 11/20; All test results are final unless otherwise noted. Reported Physicians [facility] Ordered by Maya Barron MD on 11/17/2020 Collected: 11/17/2020 Reported: 11/17/2020 14:34 Reported Physicians See Note None Note: Reported Physicians:Ordering: Maya AlvarengaAttending: Maya Barron Reviewed by Maya Barron MD on 11/20; All test results are final unless otherwise noted. IRON [facility] Ordered by Maya Barron MD on 11/17/2020 Collected: 11/17/2020 Reported: 11/17/2020 14:34 Iron SerPl-mCnc 39 (50-170) L (Low) Note: Iron values may be falsely elevate d in serum samples frompatients treated with anticoagulants (e.g., hemodialysispatients)Responsible Observer: Iron Level Iron Level 400.9002 (A) Reviewed by Maya Barron MD on 11/20; All test results are final unless otherwise noted. Reported Physicians [facility] Ordered by Maya Barron MD on 11/17/2020 Collected: 11/17/2020 Reported: 11/17/2020 14:34 Reported Physicians See Note None Note: Reported Physicians:Ordering: Maya AlvarengaAttending: Maya Barron Reviewed by Maya Barron MD on 11/20; All test results are final unless otherwise noted. CBC W AUTO DIFF [facility] Ordered by Maya Barron [...] Auto See Note (0-2) N (Normal) Note: [id number] Ob banquet server: IG% IG% 100.1375 (B) Hct VFr [...] results are final unless otherwise noted. HA1C [facility] Ordered by Maya Barron [...] glucose control.* High risk of developing terminal operations manager complications such asretinopathy, nephropathy, neuropathy, cardiopathy, [...] results are final unless otherwise noted. CMP [facility] Ordered by Maya Barron [...] final unless otherwise noted. Vitamin D 25-OH [facility] Ordered by Maya Barron [...] VIT D, (D2,D3), LC/MS/MS is recommended: ordercode 59881 (patients >2yrs).See Note 1Note 1For additional information, please refer tohttp://education.[employer].com/faq/GTW305(This link is being provided for informational/educational purposes only.)THIS TEST WAS PERFORMED AT:[email or web address] [place] [address]OSEAS MEANSMDResponsible Observer: Vitamin D 25-OH Vitamin D 25-Hydroxy [id number] 864.4835 (QUEST) Reviewed by Maya Barron MD on 11/20; All test results are final unless otherwise noted. Reported Physicians [facility] Ordered by Maya Barron MD on 11/17/2020 Collected: 11/17/2020 Reported: 11/18/2020 08:17 Reported Physicians See Note None Note: Reported Physicians:Ordering: Maya AlvarengaAttending: Maya Barron Reviewed by Maya Barron MD on 11/20; All test results are final unless otherwise noted. CBC W AUTO DIFF [facility] Ordered by Maya Barron [...] Auto See Note (0-2) N (Normal) Note: [id number] Ob banquet server: IG% IG% 100.1375 (B) Hct VFr [...] results are final unless otherwise noted. D-DIMER [facility] Ordered by Maya Barron [...] are final unless otherwise noted. Reported Physicians [facility] Ordered by Maya Barron MD on 10/23/2020 Collected: 10/23/2020 Reported: 10/23/2020 01:22 Reported Physicians See Note None Note: Reported Physicians:Ordering: Yoli NapolesAttending: Yoli SilvaCopyifan To: Maya Barron Reviewed by Maya Barron MD on 10/23; All test results are final unless otherwise noted. BHCG Quantitative [facility] Ordered by Maya Barron MD on 10/23/2020 Collected: 10/23/2020 Reported: 10/23/2020 01:21 B-HCG SerPl-aCnc 99134 MilliInternationalUnitsPerMilliLiter_[Arbitrary_Con (0-10) H (High) Note: @Instrument will [...] are final unless otherwise noted. Reported Physicians [facility] Ordered by Maya Barron MD on 10/23/2020 Collected: 10/23/2020 Reported: 10/23/2020 01:21 Reported Physicians See Note None Note: Reported Physicians:Ordering: Brook yeung, PatAttending: Charles Silva To: Maya Barron Reviewed by Maya Barron MD on 10/23; All test results are final unless otherwise noted. TROPONIN [facility] Ordered by Maya Barron MD on 10/23/2020 Collected: 10/23/2020 Reported: 10/23/2020 01:03 Troponin I SerPl-mCnc Less Than 0.015 (0.00-0.09) N (Normal) Note: Less than 0.09 NG/ML Negative 0.10 - 0.77 NG/ML High Risk0.78 NG/ML or Greater PositiveThe WHO defined the cutoff (definition for diagnosis of PR)for this method as 0.78 ng/ml.Responsible Observer: Troponin I Troponin I 600.1101 (G) Reviewed by Maya Barron MD on 10/23; All test results are final unless otherwise noted. Reported Physicians [facility] Ordered by Maya Barron MD on 10/23/2020 Collected: 10/23/2020 Reported: 10/23/2020 01:03 Reported Physicians See Note None Note: Reported Physicians:Ordering: Yoli NapolesAttending: Charles Silva To: Maya Barron Reviewed by Maya Barron MD on 10/23; All test results are final unless otherwise noted. FREE T4 (LAB) [facility] Ordered by Maya Barron MD on 10/21/2020 Collected: 10/21/2020 Reported: 10/21/2020 15:17 T4 Free SerPl-mCnc 0.97 NanoGramsPerDeciLiter_[Mass_Concentration_Units] (0.89-1.76) N (Normal) Note: Responsible Observer: FREE T4 Free Thyroxine 600.7005 (D) Reviewed by Maya Barron MD on 10/23; All test results are final unless otherwise noted. Reported Physicians [facility] Ordered by Maya Barron MD on 10/21/2020 Collected: 10/21/2020 Reported: 10/21/2020 15:17 Reported Physicians See Note None Note: Reported Physicians:Ordering: Talisha bauer, TimothyAttending: Tramaine PardoothyCopyifan To: Maya Barron Reviewed by Maya Barron MD on 10/23; All test results are final unless otherwise noted. TSH [facility] Ordered by Maya Barron MD on 10/21/2020 Collected: 10/21/2020 Reported: 10/21/2020 15:17 TSH SerPl DL<=0.005 mIU/L-aCnc 1.40 MicroInternationalUnitsPerMilliLiter_[Arbitrary_Con (0.35-5. 50) N (Normal) Note: Responsible Observer: TSH TSH 600 .7055 (D) Reviewed by Maya Barron MD on 10/23; All test results are final unless otherwise noted. Reported Physicians [facility] Ordered by Maya Barron MD on 10/21/2020 Collected: 10/21/2020 Reported: 10/21/2020 15:17 Reported Physicians See Note None Note: Reported Physicians:Ordering: Math is, TimothyAttending: Edvin TimothyCopyifan To: Maya Barron Reviewed by Maya Barron MD on 10/23; All test results are final unless otherwise noted. UA W/ CULTURE IF ABNORMAL [facility] Ordered by Maya Barron MD on 10/19/2020 Collected: 10/19/2020 Reported: 10/19/2020 16:31 Urobilinogen Ur Ql See Note (0.2-1 EU/dl) None Note: 0.2 EU/dl0.2 EU/[id number] E U/dlResponsible Observer: UROBILINOGEN UROBILINOGEN 300.4500 (C) RBC # Ur Strip NEGATIVE (NEGATIVE) None Note: Responsible Observer: BLOOD BLOOD 300.4652 (C) Prot Ur Ql Strip See Note (NEGATIVE) None Note: [id number] EResponsible Observer: PROTEIN PROTEIN 300.3750 (C) Ketones Ur Ql Strip See Note (NEGATIVE) None Note: [id number] EResponsible Observer: KETONE KETONE 300.3900 (C) Bilirub Ur Ql Strip.auto See Note (NEGATIVE) None Note: [id number] EResponsible Observer: BILIRUBIN BILIRUBIN 300.4550 (C) Glucose Ur Strip.auto-mCnc 100 mg/dl (NEGATIVE) None Note: Responsible Observer: GLUCOSE GLUC OSE 300.3850 (C) Appearance Ur See Note (CLEAR) None Note: CLEARCLEARLCLEARResponsible Observ er: APPEARANCE APPEARANCE 300.3400 (A) Color Ur See Note None Note: YELLOWYELLOWLYELLOWResponsible Obs erver: COLOR COLOR 300.3330 (A) Leukocyte esterase Ur Ql Strip See Note (NEGATIVE) None Note: [id number] EResponsible Observer: LEUKOCYTES LEUKOCYTES 300.3576 (C) Nitrite Ur Ql Strip See Note (NEGATIVE) None Note: [id number] EResponsible Observer: NITRITE NITRITE 300.3652 (B) pH [...] are final unless otherwise noted. Reported Physicians [facility] Ordered by Maya Barron MD on 10/19/2020 Collected: 10/19/2020 Reported: 10/19/2020 16:31 Reported Physicians See Note None Note: Reported Physicians:Ordering: Les Vanegas AAttending: Fady Raza To: Maya Barron Reviewed by Maya Barron MD on 10/20; All test results are final unless otherwise noted. URINE DRUG SCREEN -([facility]) [facility] Ordered by Maya Barron MD on 10/19/2020 Collected: 10/19/2020 Reported: 10/19/2020 16:40 PCP Ur Ql Scn>25 ng/mL See Note (Cutoff 25) None Note: [id number] E@Reenter manual test result: NEGATIVE@by Jia Lentz at 10/19/20 1639.Responsible Observer: PCP Urine Phencyclidine (PCP) Scrn 400.5120 (A) THC Ur Ql Scn>50 ng/mL See Note (Cutoff 50) None Note: [id number] EResponsible Observer: Marijuana (THC) Ur Marijuana (THC) Screen 400.5110 (A) Benzodiaz Ur Ql Scn See Note (Cutoff 150) None Note: [id number] E@Reenter manual test result: NEGATIVE@by Jia Lentz at 10/19/20 1640.Responsible Observer: Benzodiazepines Urine Benzodiazepines Screen 400.5170 (A) Opiates Ur Ql Scn See Note (Cutoff 100) None Note: [id number] E@Reenter manual test result: NEGATIVE@by Jia Lentz at 10/19/20 1640.Responsible Observer: Opiates Urine Opiates Screen 400.5150 (A) Tricyclics Ur Ql Scn See Note (Cutoff 300) None Note: [id number] E@Reenter manual test result: NEGATIVE@by Jia Lentz at 10/19/20 1640.Responsible Observer: TCA Ur Tricyclic Antidepressants 400.5180 (A) Cocaine Ur Ql Scn See Note (Cutoff 150) None Note: [id number] E@Reenter manual test result: NEGATIVE@by Jia Lentz at 10/19/20 1640.Responsible Observer: Cocaine Urine Cocaine Screen 400.5130 (A) Propoxyph+Nor Ur Ql Scn See Note (Cutoff 300) None Note: [id number] E@Reenter manual test result: NEGATIVE@by Jia Lentz at 10/19/20 1640.Responsible Observer: Propoxyphene Urine Propoxyphene Screen 400.5220 (A) Methadone Ur Ql Scn See Note (Cutoff 200) None Note: [id number] E@Reenter manual test result: NEGATIVE@by Jia Lentz at 10/19/20 1640.Responsible Observer: Methadone Urine Methadone Screen 400.5190 (A) Methamphet Ur Ql Scn See Note (Cutoff 500) None Note: [id number] E@Reenter manual test result: NEGATIVE@by Jia Lentz at 10/19/20 1640.Responsible Observer: Methamphetamine Urine Methamphetamines Screen 400.5140 (A) oxyCODONE Ur Ql Scn See Note (Cutoff 100) None Note: [id number] E@Reenter manual test result: NEGATIVE@by Jia Lentz at 10/19/20 1640.Responsible Observer: Oxycodone Urine Oxycodone Screen 400.5210 (A) Buprenorphine Ur Ql See Note (Cutoff 10) None Note: [id number] E@Reenter manual test result: NEGATIVE@by Jia Lentz at 10/19/20 1640.Responsible Observer: Buprenorphine Urine Buprenorphine Screen 400.5230 (A) Amphetamines Ur Ql Scn>500 ng/mL See Note (Cutoff 500) None Note: [id number] E@Reenter manual test result: NEGATIVE@by Jia Lentz at 10/19/20 1640.Responsible Observer: Amphetamines Urine Amphetamines Screen 400.5160 (A) Barbiturates Ur Ql Scn>200 ng/mL See Note (Cutoff 200) None Note: [id number] E@Reenter manual test result: NEGATIVE@by Jia Lentz at 10/19/20 1640.Responsible Observer: Barbiturates Urine Barbiturates 400.5200 (A) Reviewed by Maya Barron MD on 10/20; All test results are final unless otherwise noted. Reported Physicians [facility] Ordered by Maya Barron MD on 10/19/2020 Collected: 10/19/2020 Reported: 10/19/2020 16:40 Reported Physicians See Note None Note: Reported Physicians:Ordering: Les Vanegas: Fady Raza To: Maya Barron Reviewed by Maya Barron MD on 10/20; All test results are final unless otherwise noted. CRP, C-REACTIVE PROTEIN [facility] Ordered by Maya Barron MD on 10/19/2020 Collected: 10/19/2020 Reported: 10/19/2020 16:08 CRP SerPl-mCnc 7.5 MilliGramsPerLiter_[Mass_Concentration_Units] (0.0-5.0) H (High) Note: Responsible Observer: CRP C-Reacti ve Protein 401.4355 (H) Reviewed by Maya Barron MD on 10/20; All test results are final unless otherwise noted. SED RATE [facility] Ordered by Maya Barron MD on 10/19/2020 Collected: 10/19/2020 Reported: 10/19/2020 16:32 ESR Bld Qn Westrgrn 22 (0-20) H (High) Note: @Reenter manual test result: 22@by Jia Lentz at 10/19/20 1632.Responsible Observer: SED RATE SED RATE 100.6400 (B) Reviewed by Maya Barron MD on 10/20; All test results are final unless otherwise noted. Reported Physicians [facility] Ordered by Maya Barron MD on 10/19/2020 Collected: 10/19/2020 Reported: 10/19/2020 16:33 Reported Physicians See Note None Note: Reported Physicians:Ordering: Les Vanegas: Fady Raza To: Maya Barron Reviewed by Maya Barron MD on 10/20; All test results are final unless otherwise noted. CMP [facility] Ordered by Maya Barron [...] unless otherwise noted. CBC W AUTO DIFF [facility] Ordered by Maya Barron [...] Auto See Note (0-2) N (Normal) Note: [id number] Ob banquet server: IG% IG% 100.1375 (B) Hct VFr [...] are final unless otherwise noted. Reported Physicians [facility] Ordered by Maya Barron MD on 10/19/2020 Collected: 10/19/2020 Reported: 10/19/2020 16:33 Reported Physicians See Note None Note: Reported Physicians:Ordering: Les Vanegasding: Fady Raza To: Maya Barron Reviewed by Maya Barron MD on 10/20; All test results are final unless otherwise noted. TROPONIN [facility] Ordered by Maya Barron MD on 10/19/2020 Collected: 10/19/2020 Reported: 10/19/2020 16:10 Troponin I SerPl-mCnc Less Than 0.015 (0.00-0.09) N (Normal) Note: Less than 0.09 NG/ML Negative 0.10 - 0.77 NG/ML High Risk0.78 NG/ML or Greater PositiveThe WHO defined the cutoff (definition for diagnosis of PR)for this method as 0.78 ng/ml.Responsible Observer: Troponin I Troponin I 600.1101 (G) Reviewed by Maya Barron MD on 10/20; All test results are final unless otherwise noted. Reported Physicians [facility] Ordered by Maya Barron MD on 10/19/2020 Collected: 10/19/2020 Reported: 10/19/2020 16:10 Reported Physicians See Note None Note: Reported Physicians:Ordering: Les Vanegas: Fady Raza To: Maya Barron Reviewed by Maya Barron MD on 10/20; All test results are final unless otherwise noted. TSH w/ reflex to Free T4 [facility] Ordered by Maya Barron MD on 10/19/2020 Collected: 10/19/2020 Reported: 10/19/2020 16:08 TSH SerPl DL<=0.005 mIU/L-aCnc 1.66 MicroInternationalUnitsPerMilliLiter_[Arbitrary_Con (0.35-5. 50) N (Normal) Note: Responsible Observer: TSH TSH 600 .7060 (D) Reviewed by Maya Barron MD on 10/20; All test results are final unless otherwise noted. Reported Physicians [facility] Ordered by Maya Barron MD on 10/19/2020 Collected: 10/19/2020 Reported: 10/19/2020 16:08 Reported Physicians See Note None Note: Reported Physicians:Ordering: Les Vanegas: Fady Raza To: Maya Barron Reviewed by Maya Barron MD on 10/20; All test results are final unless otherwise noted. PT/PTT [facility] Ordered by Maya Barron [...] are final unless otherwise noted. Reported Physicians [facility] Ordered by Maya Barron MD on 10/08/2020 Collected: 10/08/2020 Reported: 10/08/2020 03:22 Reported Physicians See Note None Note: Reported Physicians:Ordering: Sana Recinosending: Sammie Ann To: Maya Barron Reviewed by Maya Barron MD on 10/09; All test results are final unless otherwise noted. CBC W AUTO DIFF [facility] Ordered by Maya Barron [...] Auto See Note (0-2) N (Normal) Note: [id number] Ob banquet server: IG% IG% 100.1375 (B) Hct VFr [...] results are final unless otherwise noted. MAGNESIUM [facility] Ordered by Maya Barron MD on 10/08/2020 Collected: 10/08/2020 Reported: 10/08/2020 03:17 Magnesium SerPl-mCnc 1.8 MilliGramsPerDeciLiter_[Mass_Concentration_Units] (1.3-2.7) N (Normal) Note: Responsible Observer: Magnesium Ma gnesium 400.3300 (G) Reviewed by Maya Barron MD on 10/09; All test results are final unless otherwise noted. D-DIMER [facility] Ordered by Maya Barron [...] are final unless otherwise noted. Reported Physicians [facility] Ordered by Maya Barron MD on 10/08/2020 Collected: 10/08/2020 Reported: 10/08/2020 03:27 Reported Physicians See Note None Note: Reported Physicians:Ordering: Sana Recinosending: Sammie Ann To: Maya Barron Reviewed by Maya Barron MD on 10/09; All test results are final unless otherwise noted. BMP [facility] Ordered by Maya Barron [...] are final unless otherwise noted. Reported Physicians [facility] Ordered by Maya Barron MD on 10/08/2020 Collected: 10/08/2020 Reported: 10/08/2020 03:21 Reported Physicians See Note None Note: Reported Physicians:Ordering: Sana Recinosending: Sammie Ann To: Maya Barron Reviewed by Maya Barron MD on 10/09; All test results are final unless otherwise noted. CBC W AUTO DIFF [facility] Ordered by Maya Barron [...] Auto See Note (0-2) N (Normal) Note: [id number] Ob banquet server: IG% IG% 100.1375 (B) Hct VFr [...] are final unless otherwise noted. Reported Physicians [facility] Ordered by Maya Barron MD on 10/04/2020 Collected: 10/04/2020 Reported: 10/04/2020 17:42 Reported Physicians See Note None Note: Reported Physicians:Ordering: Les Vanegas AAttending: Fady Raza To: Maya Barron Reviewed by Maya Barron MD on 10/09; All test results are final unless otherwise noted. SED RATE [facility] Ordered by Maya Barron MD on 10/04/2020 Collected: 10/04/2020 Reported: 10/04/2020 18:05 ESR Bld Qn Westrgrn 16 (0-20) N (Normal) Note: @Reenter manual test result: 16@by Jia Lentz at 10/04/20 1805.Responsible Observer: SED RATE SED RATE 100.6400 (B) Reviewed by Maya Barron MD on 10/09; All test results are final unless otherwise noted. Reported Physicians [facility] Ordered by Maya Barron MD on 10/04/2020 Collected: 10/04/2020 Reported: 10/04/2020 18:06 Reported Physicians See Note None Note: Reported Physicians:Ordering: Les Vanegas: Fady Raza To: Maya Barron Reviewed by Maya Barron MD on 10/09; All test results are final unless otherwise noted. TSH w/ reflex to Free T4 [facility] Ordered by Maya Barron MD on 10/04/2020 Collected: 10/04/2020 Reported: 10/04/2020 17:42 TSH SerPl DL<=0.005 mIU/L-aCnc 1.92 MicroInternationalUnitsPerMilliLiter_[Arbitrary_Con (0.35-5. 50) N (Normal) Note: Responsible Observer: TSH TSH 600 .7060 (D) Reviewed by Maya Barron MD on 10/09; All test results are final unless otherwise noted. Reported Physicians [facility] Ordered by Maya Barron MD on 10/04/2020 Collected: 10/04/2020 Reported: 10/04/2020 17:42 Reported Physicians See Note None Note: Reported Physicians:Ordering: Les Vanegas: Fady Raza To: Maya Barron Reviewed by Maya Barron MD on 10/09; All test results are final unless otherwise noted. TROPONIN [facility] Ordered by Maya Barron MD on 10/04/2020 Collected: 10/04/2020 Reported: 10/04/2020 17:35 Troponin I SerPl-mCnc Less Than 0.015 (0.00-0.09) N (Normal) Note: Less than 0.09 NG/ML Negative 0.10 - 0.77 NG/ML High Risk0.78 NG/ML or Greater PositiveThe WHO defined the cutoff (definition for diagnosis of PR)for this method as 0.78 ng/ml.Responsible Observer: Troponin I Troponin I 600.1101 (G) Reviewed by Maya Barron MD on 10/09; All test results are final unless otherwise noted. Reported Physicians [facility] Ordered by Maya Barron MD on 10/04/2020 Collected: 10/04/2020 Reported: 10/04/2020 17:35 Reported Physicians See Note None Note: Reported Physicians:Ordering: Les Vanegas AAttending: Fady Raza To: Maya Barron Reviewed by Maya Barron MD on 10/09; All test results are final unless otherwise noted. FREE T4 (LAB) [facility] Ordered by Maya Barron MD on 10/03/2020 Collected: 10/03/2020 Reported: 10/03/2020 20:08 T4 Free SerPl-mCnc 0.97 NanoGramsPerDeciLiter_[Mass_Concentration_Units] (0.89-1.76) N (Normal) Note: Responsible Observer: FREE T4 Free Thyroxine 600.7005 (D) Reviewed by Maya Barron MD on 10/04; All test results are final unless otherwise noted. Reported Physicians [facility] Ordered by Maya Barron MD on 10/03/2020 Collected: 10/03/2020 Reported: 10/03/2020 20:08 Reported Physicians See Note None Note: Reported Physicians:Ordering: Cliff Napolesending: Charles Silva To: Maya Barron Reviewed by Maya Barron MD on 10/04; All test results are final unless otherwise noted. CBC W AUTO DIFF [facility] Ordered by Maya Barron [...] Auto See Note (0-2) N (Normal) Note: [id number] Ob banquet server: IG% IG% 100.1375 (B) Hct VFr [...] are final unless otherwise noted. Reported Physicians [facility] Ordered by Maya Barron MD on 10/03/2020 Collected: 10/03/2020 Reported: 10/03/2020 20:03 Reported Physicians See Note None Note: Reported Physicians:Ordering: Yoli NapolesAttending: Charles Silva To: Maya Barron Reviewed by Maya Barron MD on 10/04; All test results are final unless otherwise noted. BHCG Quantitative [facility] Ordered by Maya Barron MD on 10/03/2020 Collected: 10/03/2020 Reported: 10/03/2020 20:23 B-HCG [facility] [address] MilliInternationalUnitsPerMilliLiter_[Arbitrary_Con (0-10) H (High) Note: @Instrument will [...] are final unless otherwise noted. Reported Physicians [facility] Ordered by Maya Barron MD on 10/03/2020 Collected: 10/03/2020 Reported: 10/03/2020 20:23 Reported Physicians See Note None Note: Reported Physicians:Ordering: Yoli NapolesAttending: Charles Silva To: Maya Barron Reviewed by Maya Barron MD on 10/04; All test results are final unless otherwise noted. TROPONIN [facility] Ordered by Maya Barron MD on 10/03/2020 Collected: 10/03/2020 Reported: 10/03/2020 20:07 Troponin I SerPl-mCnc Less Than 0.015 (0.00-0.09) N (Normal) Note: Less than 0.09 NG/ML Negative 0.10 - 0.77 NG/ML High Risk0.78 NG/ML or Greater PositiveThe WHO defined the cutoff (definition for diagnosis of PR)for this method as 0.78 ng/ml.Responsible Observer: Troponin I Troponin I 600.1101 (G) Reviewed by Maya Barron MD on 10/04; All test results are final unless otherwise noted. Reported Physicians [facility] Ordered by Maya Barron MD on 10/03/2020 Collected: 10/03/2020 Reported: 10/03/2020 20:07 Reported Physicians See Note None Note: Reported Physicians:Ordering: Yoli NapolesAttending: Charles Silva To: Maya Barron Reviewed by Maya Barron MD on 10/04; All test results are final unless otherwise noted. MANUAL DIFF [facility] Ordered by Maya Barron [...] are final unless otherwise noted. Reported Physicians [facility] Ordered by Maya Barorn MD on 10/03/2020 Collected: 10/03/2020 Reported: 10/03/2020 19:56 Reported Physicians See Note None Note: Reported Physicians:Ordering: Cliff Napolesending: Charles Silva To: Maya Barron Reviewed by Maya Barron MD on 10/04; All test results are final unless otherwise noted. UA W/ CULTURE IF ABNORMAL [facility] Ordered by Maya Barron MD on 10/03/2020 Collected: 10/03/2020 Reported: 10/03/2020 19:52 Urobilinogen Ur Ql See Note (0.2-1 EU/dl) None Note: 0.2 EU/dl0.2 EU/[id number] E U/dlResponsible Observer: UROBILINOGEN UROBILINOGEN 300.4500 (C) RBC # Ur Strip NEGATIVE (NEGATIVE) None Note: Responsible Observer: BLOOD BLOOD 300.4652 (C) Prot Ur Ql Strip See Note (NEGATIVE) None Note: [id number] EResponsible Observer: PROTEIN PROTEIN 300.3750 (C) Ketones Ur Ql Strip See Note (NEGATIVE) None Note: [id number] EResponsible Observer: KETONE KETONE 300.3900 (C) Bilirub Ur Ql Strip.auto See Note (NEGATIVE) None Note: [id number] EResponsible Observer: BILIRUBIN BILIRUBIN 300.4550 (C) Glucose Ur Strip.auto-mCnc NEGATIVE (NEGATIVE) None Note: Responsible Observer: GLUCOSE GLUC OSE 300.3850 (C) Appearance Ur See Note (CLEAR) None Note: CLEARCLEARLCLEARResponsible Observ er: APPEARANCE APPEARANCE 300.3400 (A) Color Ur See Note None Note: YELLOWYELLOWLYELLOWResponsible Obs erver: COLOR COLOR 300.3330 (A) Leukocyte esterase Ur Ql Strip See Note (NEGATIVE) None Note: [id number]@DO MICR O!!!!A Culture has been added to this specimen per established criteriaResponsible Observer: LEUKOCYTES LEUKOCYTES 300.3576 (C) Nitrite Ur Ql Strip See Note (NEGATIVE) None Note: [id number] EResponsible Observer: NITRITE NITRITE 300.3652 (B) pH [...] are final unless otherwise noted. Urine culture [facility] Ordered by Maya Barron MD on 10/03/2020 Collected: 10/03/2020 Reported: 10/04/2020 13:10 Bacteria Ur Cult See Note None Note: NGNo growth.L1NG NOTES See Note None Note: @10/03/201951: Urine culture adde d. RFLXG = CULT.ADD. Reviewed by Maya Barron MD on 10/04; All test results are final unless otherwise noted. Reported Physicians [facility] Ordered by Maya Barron MD on 10/03/2020 Collected: 10/03/2020 Reported: 10/04/2020 13:10 Reported Physicians See Note None Note: Reported Physicians:Ordering: Yoli NapolesAttending: Charles Silva To: Maya Barron Reviewed by Maya Barron MD on 10/04; All test results are final unless otherwise noted. ADD ON MICROSCOPIC [facility] Ordered by Maya Barron MD on 10/03/2020 Collected: 10/03/2020 Reported: 10/03/2020 19:52 ADD ON MICROSCOPIC See Note (0-5) None Note: NOTES OTHER/NOT INTERPRETED Bacteria UrnS Ql Micro SMALL AMOUNT Bacteria UrnS Ql Micro SMALL AMOUNT Bacteria UrnS Ql Micro L Bacteria UrnS Ql Micro Bacteria UrnS Ql Micro Bacteria UrnS Ql Micro Bacteria UrnS Ql Micro [id number] Bacteria UrnS Ql Micro Bacteria UrnS Ql [...] are final unless otherwise noted. Reported Physicians [facility] Ordered by Maya Barron MD on 10/03/2020 Collected: 10/03/2020 Reported: 10/03/2020 19:52 Reported Physicians See Note None Note: Reported Physicians:Ordering: Yoil NapolesAttending: Charles Silva To: Maya Barron Reviewed by Maya Barron MD on 10/04; All test results are final unless otherwise noted. CBC W AUTO DIFF [facility] Ordered by Maya Barron [...] Auto See Note (0-2) N (Normal) Note: 0.10.3H31573337484.1Responsible Ob banquet server: IG% IG% 100.1375 (B) Hct VFr [...] are final unless otherwise noted. Reported Physicians [facility] Ordered by Maya Barron MD on 09/18/2020 Collected: 09/18/2020 Reported: 09/18/2020 20:10 Reported Physicians See Note None Note: Reported Physicians:Ordering: Cliff Napolesending: Charles Silva To: Maya Barron Reviewed by Maya Barron MD on 09/20; All test results are final unless otherwise noted. BHCG, QUANTITATIVE [facility] Ordered by Maya Barron MD on 09/18/2020 Collected: 09/18/2020 Reported: 09/18/2020 20:21 B-HCG SerPl-aCnc [id number] MilliInternationalUnitsPerMilliLiter_[Arbitrary_Con (0-10) H (High) Note: APPROXIMATE GESTATION [...] are final unless otherwise noted. Reported Physicians [facility] Ordered by Maya Barron MD on 09/18/2020 Collected: 09/18/2020 Reported: 09/18/2020 20:22 Reported Physicians See Note None Note: Reported Physicians:Ordering: Yoli NapolesAttending: Charles Silva To: Maya Barron Reviewed by Maya Barron MD on 09/20; All test results are final unless otherwise noted. TROPONIN [facility] Ordered by Maya Barron MD on 09/18/2020 Collected: 09/18/2020 Reported: 09/18/2020 20:10 Troponin I SerPl-mCnc Less Than 0.015 (0.00-0.09) N (Normal) Note: Less than 0.09 NG/ML Negative 0.10 - 0.77 NG/ML High Risk0.78 NG/ML or Greater PositiveThe WHO defined the cutoff (definition for diagnosis of PR)for this method as 0.78 ng/ml.Responsible Observer: Troponin I Troponin I 600.1101 (G) Reviewed by Maya Barron MD on 09/20; All test results are final unless otherwise noted. Reported Physicians [facility] Ordered by Maya Barron MD on 09/18/2020 Collected: 09/18/2020 Reported: 09/18/2020 20:10 Reported Physicians See Note None Note: Reported Physicians:Ordering: Yoli NapolesAttending: Charles Silva To: Maya Barron Reviewed by Maya Barron MD on 09/20; All test results are final unless otherwise noted. Urine culture [facility] Ordered by Cat Gutierrez RPA on 09/11/2020 Collected: 09/11/2020 Reported: 09/12/2020 13:11 Bacteria Ur Cult See Note None Note: NGNo growth.L1NG NOTES See Note None Note: GEORGIANA PICKARD IN OTHER NAME IN MEDICAL RECORD Reviewed by Cat Gutierrez RPA on 09/12; All test results are final unless otherwise noted. Reported Physicians [facility] Ordered by Cat Gutierrez RPA on 09/11/2020 Collected: 09/11/2020 Reported: 09/12/2020 13:11 Reported Physicians See Note None Note: Reported Physicians:Ordering: Cat ConwayAttending: Cat Gutierrez Reviewed by Cat Gutierrez RPA on 09/12; All test results are final unless otherwise noted. UA W/ CULTURE IF ABNORMAL [facility] Ordered by Maya Barron MD on 09/10/2020 Collected: 09/10/2020 Reported: 09/10/2020 17:48 Urobilinogen Ur Ql See Note (0.2-1 EU/dl) None Note: 0.2 EU/dl0.2 EU/[id number] E U/dlResponsible Observer: UROBILINOGEN UROBILINOGEN 300.4500 (C) RBC # Ur Strip NEGATIVE (NEGATIVE) None Note: Responsible Observer: BLOOD BLOOD 300.4652 (C) Prot Ur Ql Strip See Note (NEGATIVE) None Note: [id number] EResponsible Observer: PROTEIN PROTEIN 300.3750 (C) Ketones Ur Ql Strip See Note (NEGATIVE) None Note: [id number] ble Observer: KETONE KETONE 300.3900 (C) Bilirub Ur Ql Strip.auto See Note (NEGATIVE) None Note: [id number] EResponsible Observer: BILIRUBIN BILIRUBIN 300.4550 (C) Glucose Ur Strip.auto-mCnc NEGATIVE (NEGATIVE) None Note: Responsible Observer: GLUCOSE GLUC OSE 300.3850 (C) Appearance Ur See Note (CLEAR) None Note: CLEARCLEARLCLEARResponsible Observ er: APPEARANCE APPEARANCE 300.3400 (A) Color Ur See Note None Note: YELLOWYELLOWLYELLOWResponsible Obs erver: COLOR COLOR 300.3330 (A) Leukocyte esterase Ur Ql Strip See Note (NEGATIVE) None Note: [id number] EResponsible Observer: LEUKOCYTES LEUKOCYTES 300.3576 (C) Nitrite Ur Ql Strip See Note (NEGATIVE) None Note: [id number] EResponsible Observer: NITRITE NITRITE 300.3652 (B) pH [...] are final unless otherwise noted. Reported Physicians [facility] Ordered by Maya Barron MD on 09/10/2020 Collected: 09/10/2020 Reported: 09/10/2020 17:48 Reported Physicians See Note None Note: Reported Physicians:Ordering: Les Vanegas AAttending: Fady Raza To: Maya Barron Reviewed by Maya Barron MD on 09/11; All test results are final unless otherwise noted. BHCG, QUANTITATIVE [facility] Ordered by Maya Barron MD on 09/10/2020 Collected: 09/10/2020 Reported: 09/10/2020 15:48 [facility] [address] MilliInternationalUnitsPerMilliLiter_[Arbitrary_Con (0-10) H (High) Note: @Instrument will [...] are final unless otherwise noted. Reported Physicians [facility] Ordered by Maya Barron MD on 09/10/2020 Collected: 09/10/2020 Reported: 09/10/2020 15:49 Reported Physicians See Note None Note: Reported Physicians:Ordering: Les Vanegasding: Fady Raza To: Maya Barron Reviewed by Maya Barron MD on 09/11; All test results are final unless otherwise noted. ABO/Rh Type [facility] Ordered by Maya Barron MD on 09/10/2020 Collected: 09/10/2020 Reported: 09/10/2020 15:43 Blood bank studies Yes None Note: Responsible Observer: Prev. Histor y? Previous History? 100.0800 (A) Blood Type See Note None Note: OPO PositiveLResponsible Observer: Blood Type Blood Type 110.0950 (C) Reviewed by Maya Barron MD on 09/11; All test results are final unless otherwise noted. Reported Physicians [facility] Ordered by Maya Barron MD on 09/10/2020 Collected: 09/10/2020 Reported: 09/10/2020 15:43 Reported Physicians See Note None Note: Reported Physicians:Ordering: Les Vanegas: Fady Raza To: Maya Barron Reviewed by Maya Barron MD on 09/11; All test results are final unless otherwise noted. COVID QUEST [facility] Ordered by Maya Barron [...] health care providers andpatients using the following websites:https://www.[employer]/home/Covid-19/HCP/NAAT/fact-ltaiy1wvgve://www.[employer]/home/Cov id-19/Patients/NAAT/fact-yumdo9Ledt test has been authorized by the FDA under anEmergency Use Authorization (EUA) for use by authorizedlaboratories.Due to the current public health emergency, [facility] is receiving a high volume of samples [...] information about COVID-19 can be foundat the [employer] website:www.[employer]/Covid19.THIS TEST WAS PERFORMED AT:[facility] [id number] ONEILLesponsible Observer: COVID-19 COVID-19 ТАТЬЯНА (SARS-CoV-2) [id number] 914.6042 ([employer] [facility]) Reviewed by Maya Barron MD on 08/25; All test results are final unless otherwise noted. Reported Physicians [facility] Ordered by Maya Barron MD on 08/23/2020 Collected: 08/23/2020 Reported: 08/25/2020 03:57 Reported Physicians See Note None Note: Reported Physicians:Ordering: Sana Recinosending: Sammie Ann To: Maya Barron Reviewed by Maya Barron MD on 08/25; All test results are final unless otherwise noted. [facility] St[facility] Ordered by Maya Barron MD on 08/15/2020 [address] [place], [address] Collected: 08/15/2020 Reported: 08/15/2020 11:47 tel :[phone] strep antigen normal (negative) N (Normal) Reviewed by Maya Barron MD on 08/15; All test results are final unless otherwise noted. Urinalysis w/out microscopy Office [facility] Ordered by Maya Barron MD on 08/15/2020 [address] [place], [address] Specimen Source: Urine Collected: 08/15/2020 Reporte d: 08/15/2020 11:03 tel:[phone] bilirubin normal (neg) N (Normal) blood normal [...] unless otherwise noted. Extended hours FLU/COV2 NAAT [facility] Ordered by Maya Barron MD on 08/15/2020 Collected: 08/15/2020 Reported: 08/15/2020 15:55 Extended hours FLU/COV2 NAAT See Note None Note: TNPNo Reportable ResultLTNPNo Repo rtable ZomfwrX5RTN NOTES See Note None Note: GEORGIANA PICKARD IN OTHER NAME IN MEDICAL RECORD Reviewed by Maya Barron MD on 08/16; All test results are final unless otherwise noted. Reported Physicians [facility] Ordered by Maya Barron MD on 08/15/2020 Collected: 08/15/2020 Reported: 08/15/2020 15:55 Reported Physicians See Note None Note: Reported Physicians:Ordering: Maya AlvarengaAttending: Maya Barron Reviewed by Maya Barron MD on 08/16; All test results are final unless otherwise noted. Sweta Raquel SARS/FLU [facility] Ordered by Maya Barron MD on 08/15/2020 Collected: 08/15/2020 Reported: 08/15/2020 15:55 Sweta Raquel SARS/FLU See Note None Note: Sweta Raquel is a rapid, automated q ualitative anddifferentiation of Influenza type A,B and ULLA-XCN-4ZQPV-RT-PCR testNORMAL VALUE IS "NOT DETECTED".Limitations of the sweta raquel Influenza A/B & YDLZ-WHU-8cpazo method.Modifications to manufacturers recommendation and proceduresmay alter performance of the test.Negative results do not preclude Influenza A,B or SARS- SYL5nymxgahqwl and should not be used as the [...] out diseases caused by other bacterialor viral pathogens.[id number]-dxj CoV RNA Resp Ql ТАТЬЯНА+probeLNNSARS SARS-COV-2 NOT [id number]-VHH-6 NOT NMHGHENO77293-3RTDJV RNA Resp Ql ТАТЬЯНА+probeLNNFLUAInfluenza A Not [id number] A Not Efqdgtmr52328-0GDOVP RNA Resp Ql ТАТЬЯНА+probeLNNINBInfluenza B Not [id number] B Not Detected NOTES See Note None Note: GEORGIANA PICKARD IN OTHER NAME IN MEDICAL RECORD Reviewed by Maya Barron MD on 08/18; All test results are final unless otherwise noted. Throat culture [facility] Ordered by Maya Barron MD on 08/15/2020 Collected: 08/15/2020 Reported: 08/17/2020 06:37 Throat culture results Normal Deisy None Reviewed by Maya Barron MD on 08/18; All test results are final unless otherwise noted. Reported Physicians [facility] Ordered by Maya Barron MD on 08/15/2020 Collected: 08/15/2020 Reported: 08/17/2020 06:37 Reported Physicians See Note None Note: Reported Physicians:Ordering: Maya AlvarengaAttending: Maya Barron Reviewed by Maya Barron MD on 08/18; All test results are final unless otherwise noted. AFFIRM [facility] Ordered by Cat Gutiererz RPA on 08/09/2020 Collected: 08/09/2020 Reported: 08/11/2020 06:52 Dionna species DNA Probe NOT DETECTED (NOT DETECTED) None Note: THIS TEST WAS PERFORMED AT:[facility] [address] [address]XKUXPGCLAUDY ONEILLesponsible Observer: Dionna DNA Dionna species DNA Probe [id number] 913.2350 ([facility]) Gardnerella DNA Probe DETECTED (NOT DETECTED) H (High) Note: Increased levels of G. vaginalis m ay not be significantin the absence of signs and symptoms of bacterialvaginosis.Responsible Observer: Gardnerella DNA Gardnerella DNA Probe [id number] 913.2345 ([facility]) Trichomonas DNA Probe NOT DETECTED (NOT DETECTED) None Note: Responsible Observer: Trichomonas DNA Trichomonas DNA Probe [id number] 913.2340 ([facility]) NOTES See Note None Note: PICKARD:IN OTHER NAME IN MEDICAL RECORD Reviewed on 08/11/2020; All test result s are final unless otherwise noted. Reported Physicians [facility] Ordered by Cat Gutierrez RPA on 08/09/2020 Collected: 08/09/2020 Reported: 08/11/2020 06:52 Reported Physicians See Note None Note: Reported Physicians:Ordering: Atte nding: Rigo Gutierrez To: Maya Barron Reviewed on 08/11/2020; All test result s are final unless otherwise noted. GCAMP [facility] Ordered by Cat Gutierrez RPA on 08/09/2020 Collected: 08/09/2020 Reported: 08/11/2020 06:52 C trach rRNA XXX Ql ТАТЬЯНА+probe See Note (NOT DETECTED) None Note: NOT DETECTEDNOT [id number] 6NOT DETECTEDResponsible Observer: C.Trach RNA Chlamydia trachomatis DNA-ТАТЬЯНА [id number] 913.9900 ([facility]) N gonorrhoea rRNA XXX Ql ТАТЬЯНА+probe See Note (NOT DETECTED) None Note: NOT DETECTEDNOT [id number] 6NOT DETECTEDResponsible Observer: GC RNA Neisseria gonorrhoeae DNA -ТАТЬЯНА [id number] 913.9905 ([employer]) Chlamydia/GC DNA Note SEE NOTE None Note: The analytical performance charact eristics of thisassay, when used to test SurePath(TM) specimens have beendetermined by [employer]. The modifications havenot been cleared or approved by the FDA. This assay hasbeen validated pursuant to the CLIA regulations and isused for clinical purposes.For additional information, please refer tohttps://education.[employer]/faq/PBE952(This link is being provided for information/educational purposes only.)THIS TEST WAS PERFORMED AT:[email or web address] [address]KAJUANCHO MEANS,MDResponsible Observer: GC/Chlam Note Chlamydia/GC DNA Note [id number] 913.9907 (A) NOTES See Note None Note: PICKARD:IN OTHER NAME IN MEDICAL RECORD Reviewed by Cat Gutierrez RPA on 08/12; All test results are final unless otherwise noted. Reported Physicians [facility] Ordered by Cat Gutierrez RPA on 08/09/2020 Collected: 08/09/2020 Reported: 08/11/2020 06:52 Reported Physicians See Note None Note: Reported Physicians:Ordering: Atte nding: Cat GutierrezCopy To: Maya Barron Reviewed by Cat Gutierrez RPA on 08/12; All test results are final unless otherwise noted. HPVI [facility] Ordered by Cat Gutierrez RPA on 08/09/2020 Collected: 08/09/2020 Reported: 08/15/2020 06:53 Thin Prep Vag See Note None Note: See scanned reportSee scanned repo rtLSee scanned reportResponsible Observer: TP w/HPV if ASC Thinprep w/HPV if ASCUS 805.1454 ([facility]) NOTES See Note None Note: [id number] Technique: BRUS H-SPATULABody Site: CERVIX Reviewed by Cat Gutierrez RPA on 08/15; All test results are final unless otherwise noted. Reported Physicians [facility] Ordered by Cat Gutierrez RPA on 08/09/2020 Collected: 08/09/2020 Reported: 08/15/2020 06:53 Reported Physicians See Note None Note: Reported Physicians:Ordering: Atte nding: Gaudencio GutierrezanaCopy To: Maya Barron Reviewed by Cat Gutierrez RPA on 08/15; All test results are final unless otherwise noted. ADD ON MICROSCOPIC [facility] Ordered by Cat Gutierrez RPA on 08/09/2020 Collected: 08/09/2020 Reported: 08/09/2020 12:23 ADD ON MICROSCOPIC See Note (0-5) H (High) Note: NOTES OTHER/NOT INTERPRETED Bacteria UrnS Ql Micro SMALL AMOUNT Bacteria UrnS Ql Micro SMALL AMOUNT Bacteria UrnS Ql Micro L Bacteria UrnS Ql Micro Bacteria UrnS Ql Micro Bacteria UrnS Ql Micro Bacteria UrnS Ql Micro [id number] Bacteria UrnS Ql Micro Bacteria UrnS Ql [...] Ql Micro Mucous Threads UrnS Ql Micro [id number] Mucous Threads UrnS Ql Micro Mucous Threads UrnS Ql Micro MODERATE AMOUNT WBC # Ur Manual 5-8 @08/09/20 1210: UA W/ MICRO added. RFLXG = UMIC.Method of Collection:: Clean CatchResponsible Observer: WBC WBC 300.5000 (A) Reviewed by Cat Gutierrez RPA on 08/12; All test results are final unless otherwise noted. Reported Physicians [facility] Ordered by Cat Gutierrez RPA on 08/09/2020 Collected: 08/09/2020 Reported: 08/10/2020 17:47 Reported Physicians See Note None Note: Reported Physicians:Ordering: Atte nding: Rigo Gutierrez To: Maya Barron Reviewed by Cat Gutierrez RPA on 08/12; All test results are final unless otherwise noted. URINALYSIS [facility] Ordered by Cat Gutierrez RPA on 08/09/2020 Collected: 08/09/2020 Reported: 08/09/2020 12:23 Urobilinogen Ur Ql See Note (0.2-1 EU/dl) None Note: 1 EU/dl1 EU/[id number] EU/dlRe sponsible Observer: UROBILINOGEN UROBILINOGEN 300.4500 (C) RBC # Ur Strip NEGATIVE (NEGATIVE) None Note: Responsible Observer: BLOOD BLOOD 300.4650 (C) Prot Ur Ql Strip See Note (NEGATIVE) None Note: [id number] ble Observer: PROTEIN PROTEIN 300.3750 (C) Ketones Ur Ql Strip See Note (NEGATIVE) None Note: [id number] ble Observer: KETONE KETONE 300.3900 (C) Bilirub Ur Ql Strip.auto See Note (NEGATIVE) None Note: [id number] EResponsible Observer: BILIRUBIN BILIRUBIN 300.4550 (C) Glucose Ur Strip.auto-mCnc NEGATIVE (NEGATIVE) None Note: Responsible Observer: GLUCOSE GLUC OSE 300.3850 (C) Appearance Ur See Note (CLEAR) None Note: CLEARCLEARLCLEARResponsible Observ er: APPEARANCE APPEARANCE 300.3400 (A) Color Ur See Note None Note: DARK YELLOWDARK YELLOWLDARK YELLOW Responsible Observer: COLOR COLOR 300.3300 (A) Leukocyte esterase Ur Ql Strip See Note (NEGATIVE) None Note: [id number]@DO MICR O!!!!Responsible Observer: LEUKOCYTES LEUKOCYTES 300.3575 (C) Nitrite Ur Ql Strip See Note (NEGATIVE) None Note: [id number] EResponsible Observer: NITRITE NITRITE 300.3650 (B) pH [...] are final unless otherwise noted. Urine culture [facility] Ordered by Cat Gutierrez RPA on 08/09/2020 Collected: 08/09/2020 Reported: 08/10/2020 08:33 Bacteria Ur Cult See Note None Note: NGNo growth.L1NG Reviewed by Cat Gutierrez RPA on 08/14; All test results are final unless otherwise noted. MEDMATCH [facility] Ordered by Cat Gutierrez [facility] on 08/09/2020 Collected: 08/09/2020 Reported: 08/13/2020 15:56 MEDMATCH See scanned report None Note: Responsible Observer: MEDMATCH MED MATCH 910.36603 ([facility]) Reviewed by Cat Gutierrez RPA on 08/14; All test results are final unless otherwise noted. Reported Physicians [facility] Ordered by Cat Gutierrez RPA on 08/09/2020 Collected: 08/09/2020 Reported: 08/13/2020 15:56 Reported Physicians See Note None Note: Reported Physicians:Ordering: Atte nding: Rigo Gutierrez To: Maya Barron Reviewed by Cat Gutierrez RPA on 08/14; All test results are final unless otherwise noted. Varicella-Zoster IgG Antibody [facility] Ordered by Cat Gutierrez RPA on 08/09/2020 Collected: 08/09/2020 Reported: 08/10/2020 17:47 VZV IgG Ser [place] 242.10 None Note: Index Interpr [...] Antibody Immunity Screen, ACIF.THIS TEST WAS PERFORMED AT:[email or web address] [address]GEYTFO ME RATI,MDResponsible Observer: VARICELLA IGG Varicella-Zoster IgG Antibody [id number] 536.0106 ([employer]) NOTES See Note None Note: Patient Street Address: [address] [place] [address]Patient City: [place] PKPatient State: [facility] Zip Code: [address]fju Reviewed by Cat Gutierrez RPA on 08/12; All test results are final unless otherwise noted. CBC [facility] Ordered by Cat Gutierrez [...] Auto See Note (0-2) N (Normal) Note: 0.20.0T33406236865.2Responsible Ob banquet server: IG% IG% 100.1375 (B) Hct VFr [...] results are final unless otherwise noted. TSH [facility] Ordered by Cat Gutierrez RPA on 08/09/2020 Collected: 08/09/2020 Reported: 08/09/2020 14:24 TSH SerPl DL<=0.005 mIU/L-aCnc 1.18 MicroInternationalUnitsPerMilliLiter_[Arbitrary_Con (0.35-5. 50) N (Normal) Note: Responsible Observer: TSH TSH 600 .7055 (D) Reviewed by Cat Gutierrez RPA on 08/14; All test results are final unless otherwise noted. Lead (Venous) Wh.Bld [facility] Ordered by Cat Gutierrez RPA on 08/09/2020 Collected: 08/09/2020 Reported: 08/10/2020 17:47 Lead Bld-sCnc <1 (<5) None Note: See Note 1Note 1This test was faith gran[employer] and its analytical performancecharacteristics have been determined by [employer]. It has not been cleared or approved by [facility]. This assay has been validated pursuant to the CLIAregulations and is used for clinical purposes.THIS TEST WAS PERFORMED AT:[email or web address] [address]HFCQJM MERATI,MDResponsible Observer: Lead, WB Lead, Whole Blood [id number] 911.2190 ([facility]) NOTES See Note None Note: Patient Street Address: [address] [place] [address] [address] City: [place] PKPatient State: [facility] Zip Code: [address]ie Reviewed by Cat Gutierrez RPA on 08/14; All test results are final unless otherwise noted. ncPN REF [facility] Ordered by Cat Gutierrez RPA on 08/09/2020 Collected: 08/09/2020 Reported: 08/13/2020 15:26 T pallidum Ab Ser Ql Aggl See Note (Nonreactive) None Note: [id number] onreactiveResponsible Observer: TP-PA Treponema pallidum Ab (TP-PA) 01300802 908.0286 ([facility]) HIV1 RNA SerPl Ql ТАТЬЯНА+probe See Note None Note: TNPNo Reportable ResultLTNPNo Repo rtable ResultLLEP.LIVENTNPResponsible Observer: HIV 1 RNA, QL T HIV 1 RNA, QL TMA [id number] 908.0254 ([facility]) HBV surface Ag SerPl Ql IA See Note (NON-REACTIVE) None Note: KPE-XNZULMUUNTO-[id number] 5NON-REACTIVEResponsible Observer: HBSAG Hepatitis B Surface Antigen [id number] 910.2004 ([facility]) RUBV IgG SerPl IA-aCnc 1.76 None Note: Index Interpretatio n ----- <0.90 Not consistent with immunity 0.90-0.99 Equivocal > or = 1.00 Consistent with immunityThe presence of rubella IgG antibody suggestsimmunization or past or current infection withrubella virus.THIS TEST WAS PERFORMED AT:[place] [id number] [facility] MEDICAL CENTERDORIE,MDResponsible Observer: Rubella IgG Ab Rubella IgG Ab [id number] 911.2840 ([facility]) HIV1 Ab SerPlBld Ql IA.rapid See Note None Note: TNPNo Reportable ResultLTNPNo Repo rtable ResultLLEP.LIVENTNPResponsible Observer: HIV 1 AB HIV 1 AB [id number] 908.0250 ([employer]) HBsAg Confirmation See Note None Note: TNPNo Reportable ResultLTNPNo Repo rtable ResultLLEP.LIVENTNPResponsible Observer: HBsAg Confirm HBsAg Confirmation [id number] 910.2006 ([facility]) HIV (1&2) Screen, 4th Gen [...] for this purpose.For additional information please refer tohttp://education.[employer]/faq/GEU961(This link is being provided for informational/educational purposes only.)The performance of this assay has not been clinicallyvalidated in patients less than 2 years old.THIS TEST WAS PERFORMED AT:[facility] [address]KVLALN MERATI,MDResponsible Observer: HIV ABS HIV (1&2) Screen, 4th Gen [id number] 908.0228 ([facility]) Reviewed by Cat Gutierrez RPA on 08/14; All test results are final unless otherwise noted. Reported Physicians [facility] Ordered by Cat Gutierrez RPA on 08/09/2020 Collected: 08/09/2020 Reported: 08/13/2020 15:27 Reported Physicians See Note None Note: Reported Physicians:Ordering: Atte nding: Rigo Gutierrez To: Maya Barron Reviewed by Cat Gutierrez RPA on 08/14; All test results are final unless otherwise noted. Type and Screen [facility] Ordered by Cat Gutierrez [...] are final unless otherwise noted. Reported Physicians [facility] Ordered by Cat Gutierrez RPA on 08/09/2020 Collected: 08/09/2020 Reported: 08/09/2020 12:39 Reported Physicians See Note None Note: Reported Physicians:Ordering: Cat ConwayAttending: Rigo Gutierrez To: Maya Barron Reviewed by Cat Gutierrez RPA on 08/10; All test results are final unless otherwise noted. HCV RFX ТАТЬЯНА [facility] Ordered by Cat Gutierrez RPA on 08/09/2020 Collected: 08/09/2020 Reported: 08/10/2020 17:47 HCV Ab Ser Ql See Note (NON-REACTIVE) None Note: UXA-XOYIGMSSCOE-[id number] 7NON-REACTIVEResponsible Observer: HEP C ANTIBODY Hepatitis C Antibody 13392743 914.8305 ([facility]) HCV RNA Qualitative (ТАТЬЯНА) 0.54 (<1.00) None Note: HCV antibody was non-reactive. The re is no laboratoryevidence of HCV infection.In most cases, no further action is required. However,if recent HCV exposure is suspected, a test for HCV RNA(test code 40811) is suggested.For additional information please refer tohttp://education.[employer]/faq/KYK11g5(This link is being provided for informational/educational purposes only.)THIS TEST WAS PERFORMED AT:[facility] [address]CLAUDY ONEILLesponsible Observer: SIG TO C/O SIGNAL TO CUTOFF [id number] 716.4766 ([employer]) NOTES See Note None Note: Patient Street Address: [address] [place] [address] [address]Patient City: [facility] State: [facility] Zip Code: [address]Xrywplm Reviewed by Cat Gutierrez RPA on 08/12; All test results are final unless otherwise noted. Reported Physicians [facility] Ordered by Cat Gutierrez RPA on 08/09/2020 Collected: 08/09/2020 Reported: 08/10/2020 17:47 Reported Physicians See Note None Note: Reported Physicians:Ordering: Jannet barton: Rigo Gutierrez To: Maya Barron Reviewed by Cat Gutierrez RPA on 08/12; All test results are final unless otherwise noted. BHCG, QUANTITATIVE [facility] Ordered by Cat Gutierrez RPA on 08/08/2020 Collected: 08/08/2020 Reported: 08/08/2020 11:53 [facility] [address] MilliInternationalUnitsPerMilliLiter_[Arbitrary_Con (0-10) H (High) Note: @Instrument will autodiluteAPPROXI MATE GESTATION AGE APRROXIMATE HCG RANGE 0-1 WEEK 0 - 50 1-2 WEEKS 40 - 300 2-3 WEEKS 100 - 1,000 3-4 WEEKS 500 - 6,000 1-2 MONTHS 5,000 - 200,000 2-3 MONTHS 10,000 - 100,000 2ND TRIMESTER 3,000 - 50,000 3RD TRIMESTER 1,000 - 50,000Responsible Observer: CG,QUANT BHCG, QUANTITATIVE 600.5006 (G) Reviewed by Cat Gutierrez RPA on 08/08; All test results are final unless otherwise noted. Reported Physicians [facility] Ordered by Cat Gutierrez RPA on 08/08/2020 Collected: 08/08/2020 Reported: 08/08/2020 11:54 Reported Physicians See Note None Note: Reported Physicians:Ordering: Jannet valentineing: Rigo Gutierrez To: Maya Barron Reviewed by Cat Gutierrez RPA on 08/08; All test results are final unless otherwise noted. BHCG, QUANTITATIVE [facility] Ordered by Cat Gutierrez RPA on 08/01/2020 Collected: 08/01/2020 Reported: 08/01/2020 02:26 B[facility] [address] MilliInternationalUnitsPerMilliLiter_[Arbitrary_Con (0-10) H (High) Note: @Instrument will [...] are final unless otherwise noted. Reported Physicians [facility] Ordered by Cat Gutierrez RPA on 08/01/2020 Collected: 08/01/2020 Reported: 08/01/2020 02:26 Reported Physicians See Note None Note: Reported Physicians:Ordering: Aj Ferreiraending: Jos Rivas To: Maya Barron Reviewed by Cat Gutierrez RPA on 08/01; All test results are final unless otherwise noted. Type and Screen [facility] Ordered by Cat Gutierrez [...] are final unless otherwise noted. Reported Physicians [facility] Ordered by Cat Gutierrez RPA on 08/01/2020 Collected: 08/01/2020 Reported: 08/01/2020 06:03 Reported Physicians See Note None Note: Reported Physicians:Ordering: Aj Ferreiraending: Jos Rivas To: Maya Barron Reviewed by Cat Gutierrez RPA on 08/01; All test results are final unless otherwise noted. CBC W AUTO DIFF [facility] Ordered by Cat Gutierrez [...] Auto See Note (0-2) N (Normal) Note: 0.10.0M56568874004.1Responsible Ob banquet server: IG% IG% 100.1375 (B) Hct VFr [...] are final unless otherwise noted. Reported Physicians [facility] Ordered by Cat Gutierrez RPA on 08/01/2020 Collected: 08/01/2020 Reported: 08/01/2020 02:26 Reported Physicians See Note None Note: Reported Physicians:Ordering: Aj Ferreiraending: Jos Rivas To: Maya Barron Reviewed by Cat Gutierrez RPA on 08/01; All test results are final unless otherwise noted. ADD ON MICROSCOPIC [facility] Ordered by Cat Gutierrez RPA on 08/01/2020 Collected: 08/01/2020 Reported: 08/01/2020 01:01 ADD ON MICROSCOPIC See Note (0-5) None Note: NOTES OTHER/NOT INTERPRETED Bacteria UrnS Ql Micro MODERATE AMOUNT Bacteria UrnS Ql Micro MODERATE AMOUNT Bacteria UrnS Ql Micro L Bacteria UrnS Ql Micro Bacteria UrnS Ql Micro Bacteria UrnS Ql Micro Bacteria UrnS Ql Micro [id number] Bacteria UrnS Ql Micro Bacteria UrnS Ql [...] are final unless otherwise noted. Reported Physicians [facility] Ordered by Cat Gutierrez RPA on 08/01/2020 Collected: 08/01/2020 Reported: 08/01/2020 01:01 Reported Physicians See Note None Note: Reported Physicians:Ordering: Aj Ferreiraending: Jos Rivas To: Maay Barron Reviewed by Cat Gutierrez RPA on 08/01; All test results are final unless otherwise noted. UA W/ CULTURE IF ABNORMAL [facility] Ordered by Cat Gutierrez RPA on 08/01/2020 Collected: 08/01/2020 Reported: 08/01/2020 01:01 Urobilinogen Ur Ql See Note (0.2-1 EU/dl) None Note: 0.2 EU/dl0.2 EU/lfP02130202384.2 E U/dlResponsible Observer: UROBILINOGEN UROBILINOGEN 300.4500 (C) RBC # Ur Strip SMALL (NEGATIVE) None Note: @DO MICRO!!!!Responsible Observer: BLOOD BLOOD 300.4652 (C) Prot Ur Ql Strip See Note (NEGATIVE) None Note: [id number] EResponsible Observer: PROTEIN PROTEIN 300.3750 (C) Ketones Ur Ql Strip See Note (NEGATIVE) None Note: 15 mg/dL15 mg/[id number] mg/d LResponsible Observer: KETONE KETONE 300.3900 (C) Bilirub Ur Ql Strip.auto See Note (NEGATIVE) None Note: [id number] EResponsible Observer: BILIRUBIN BILIRUBIN 300.4550 (C) Glucose Ur Strip.auto-mCnc NEGATIVE (NEGATIVE) None Note: Responsible Observer: GLUCOSE GLUC OSE 300.3850 (C) Appearance Ur See Note (CLEAR) None Note: CLEARCLEARLCLEARResponsible Observ er: APPEARANCE APPEARANCE 300.3400 (A) Color Ur See Note None Note: YELLOWYELLOWLYELLOWResponsible Obs erver: COLOR COLOR 300.3330 (A) Leukocyte esterase Ur Ql Strip See Note (NEGATIVE) None Note: [id number]@DO MICR O!!!!A Culture has been added to this specimen per established criteriaResponsible Observer: LEUKOCYTES LEUKOCYTES 300.3576 (C) Nitrite Ur Ql Strip See Note (NEGATIVE) None Note: [id number] EResponsible Observer: NITRITE NITRITE 300.3652 (B) pH [...] are final unless otherwise noted. Urine culture [facility] Ordered by Cat Gutierrez RPA on 08/01/2020 Collected: 08/01/2020 Reported: 08/02/2020 07:41 Urine culture result See Note None Note: Greater than 100,000 CFU/MLLactoba cilli no senst done NOTES See Note None Note: @08/01/20 0101: Urine culture adde d. RFLXG = CULT.ADD. Reviewed by Cat Gutierrez RPA on 08/02; All test results are final unless otherwise noted. Reported Physicians [facility] Ordered by Cat Gutierrez RPA on 08/01/2020 Collected: 08/01/2020 Reported: 08/02/2020 07:41 Reported Physicians See Note None Note: Reported Physicians:Ordering: Cristino FerreiraAttending: Jos Rivas To: Maya Barron Reviewed by Cat Gutierrez RPA on 08/02; All test results are final unless otherwise noted. BHCG, QUANTITATIVE [facility] Ordered by Cat Guteirrez RPA on 07/31/2020 Collected: 07/31/2020 Reported: 07/31/2020 16:53 B-HCG SerPl-aCnc 534[address] MilliInternationalUnitsPerMilliLiter_[Arbitrary_Con (0-10) H (High) Note: @Instrument will [...] are final unless otherwise noted. Reported Physicians [facility] Ordered by Cat Gutierrez RPA on 07/31/2020 Collected: 07/31/2020 Reported: 07/31/2020 16:53 Reported Physicians See Note None Note: Reported Physicians:Ordering: Atte nding: Cat Gutierrez Reviewed by Cat Gutierrez RPA on 08/01; All test results are final unless otherwise noted. ADD ON MICROSCOPIC [facility] Ordered by Cat Gutierrez RPA on 07/27/2020 Collected: 07/27/2020 Reported: 07/27/2020 21:36 ADD ON MICROSCOPIC See Note (0-5) None Note: NOTES OTHER/NOT INTERPRETED Bacteria UrnS Ql Micro SMALL AMOUNT Bacteria UrnS Ql Micro SMALL AMOUNT Bacteria UrnS Ql Micro L Bacteria UrnS Ql Micro Bacteria UrnS Ql Micro Bacteria UrnS Ql Micro Bacteria UrnS Ql Micro [id number] Bacteria UrnS Ql Micro Bacteria UrnS Ql [...] are final unless otherwise noted. Reported Physicians [facility] Ordered by Cat Gutierrez RPA on 07/27/2020 Collected: 07/27/2020 Reported: 07/27/2020 21:37 Reported Physicians See Note None Note: Reported Physicians:Ordering: Daquan BustamanteAttending: Daquan GoodCopyifan To: Maya Barron Reviewed by Cat Gutierrez RPA on 07/28; All test results are final unless otherwise noted. UA W/ CULTURE IF ABNORMAL [facility] Ordered by Cat Gutierrez RPA on 07/27/2020 Collected: 07/27/2020 Reported: 07/27/2020 21:36 Urobilinogen Ur Ql See Note (0.2-1 EU/dl) None Note: 0.2 EU/dl0.2 EU/[id number] E U/dlResponsible Observer: UROBILINOGEN UROBILINOGEN 300.4500 (C) RBC # Ur Strip NEGATIVE (NEGATIVE) None Note: Responsible Observer: BLOOD BLOOD 300.4652 (C) Prot Ur Ql Strip See Note (NEGATIVE) None Note: [id number] EResponsible Observer: PROTEIN PROTEIN 300.3750 (C) Ketones Ur Ql Strip See Note (NEGATIVE) None Note: [id number] EResponsible Observer: KETONE KETONE 300.3900 (C) Bilirub Ur Ql Strip.auto See Note (NEGATIVE) None Note: [id number] EResponsible Observer: BILIRUBIN BILIRUBIN 300.4550 (C) Glucose Ur Strip.auto-mCnc NEGATIVE (NEGATIVE) None Note: Responsible Observer: GLUCOSE GLUC OSE 300.3850 (C) Appearance Ur See Note (CLEAR) None Note: CLEARCLEARLCLEARResponsible Observ er: APPEARANCE APPEARANCE 300.3400 (A) Color Ur See Note None Note: YELLOWYELLOWLYELLOWResponsible Obs erver: COLOR COLOR 300.3330 (A) Leukocyte esterase Ur Ql Strip See Note (NEGATIVE) None Note: [id number]@DO MICR O!!!!A Culture has been added to this specimen per established criteriaResponsible Observer: LEUKOCYTES LEUKOCYTES 300.3576 (C) Nitrite Ur Ql Strip See Note (NEGATIVE) None Note: [id number] EResponsible Observer: NITRITE NITRITE 300.3652 (B) pH [...] of Collection:: Voided Reviewed by Cat Gutierrez [facility] on 07/31; All test results are final unless otherwise noted. Urine culture [facility] Ordered by Cat Gutierrez [facility] on 07/27/2020 Collected: 07/27/2020 Reported: 07/29/2020 07:36 Urine culture result 50,000 CFU/ML Lactobacilli no senst done None NOTES See Note None Note: @07/27/202136: Urine culture sherrye d. RFLXG = CULT.ADD. Reviewed by Cat Gutierrez [facility] on 07/31; All test results are final unless otherwise noted. Reported Physicians [facility] Ordered by Cat Gutierrez [facility] on 07/27/2020 Collected: 07/27/2020 Reported: 07/29/2020 07:37 Reported Physicians See Note None Note: Reported Physicians:Ordering: Daquan BustamanteAttending: Daquan GoodCopyifan To: Maya Barron [facility] on 07/31; All test results are final unless otherwise noted. BHCG, QUANTITATIVE [facility] Ordered by Cat Brenda [facility] on 07/27/2020 Collected: 07/27/2020 Reported: 07/27/2020 22:08 [...] are final unless otherwise noted. Reported Physicians [facility] Ordered by Cat Gutierrez RPA on 07/27/2020 Collected: 07/27/2020 Reported: 07/27/2020 22:08 Reported Physicians See Note None Note: Reported Physicians:Ordering: Daquan BustamanteAttending: Ariella Good To: Maya Barron Reviewed by Cat Gutierrez RPA on 07/28; All test results are final unless otherwise noted. CBC W AUTO DIFF [facility] Ordered by Cat Gutierrez [...] Auto See Note (0-2) N (Normal) Note: 0.20.6B53880906624.2Responsible Ob banquet server: IG% IG% 100.1375 (B) Hct VFr [...] are final unless otherwise noted. Reported Physicians [facility] Ordered by Cat Gutierrez RPA on 07/27/2020 Collected: 07/27/2020 Reported: 07/27/2020 20:11 Reported Physicians See Note None Note: Reported Physicians:Ordering: Daquan BustamanteAttending: Daquan GoodCopyifan To: Maya Barron Reviewed by Cat Gutierrez RPA on 07/28; All test results are final unless otherwise noted. Type and Screen [facility] Ordered by Cat Gutierrez [...] are final unless otherwise noted. Reported Physicians [facility] Ordered by Cat Gutierrez RPA on 07/27/2020 Collected: 07/27/2020 Reported: 07/27/2020 20:48 Reported Physicians See Note None Note: Reported Physicians:Ordering: Daquan BustamanteAttending: Ariella Good To: Maya Barron Reviewed by Cat Gutierrez RPA on 07/28; All test results are final unless otherwise noted. CMP [facility] Ordered by Cat Gutierrez [...] are final unless otherwise noted. Reported Physicians [facility] Ordered by Cat Gutierrez RPA on 07/27/2020 Collected: 07/27/2020 Reported: 07/27/2020 20:37 Reported Physicians See Note None Note: Reported Physicians:Ordering: Daquan BustamanteAttending: Ariella Good To: Maya Barron Reviewed by Cat Gutierrez RPA on 07/28; All test results are final unless otherwise noted. BHCG, QUANTITATIVE [facility] Ordered by Maya Barron MD on 07/26/2020 Collected: 07/26/2020 Reported: 07/26/2020 16:48 B-HCG [facility] 4155 MilliInternationalUnitsPerMilliLiter_[Arbitrary_Con (0-10) H (High) [...] are final unless otherwise noted. Reported Physicians [facility] Ordered by Maya Barron MD on 07/26/2020 Collected: 07/26/2020 Reported: 07/26/2020 16:48 Reported Physicians See Note None Note: Reported Physicians:Ordering: Maya AlvarengaAttending: Maya Barron Reviewed by Maya Barron MD on 07/27; All test results are final unless otherwise noted. Sweta Raquel SARS/FLU [facility] Ordered by Bandar Cleveland PA-C on 07/25/2020 Collected: 07/25/2020 Reported: 07/25/2020 18:47 Sweta Raquel SARS/FLU See Note None Note: Sweta Raquel is a rapid, automated q ualitative anddifferentiation of Influenza type A,B and DWKN-WNM-9DKZX-RT-PCR testNORMAL VALUE IS "NOT DETECTED".Limitations of the sweta raquel Influenza A/B & XLWG-NWF-4cjnqp method.Modifications to manufacturers recommendation and proceduresmay alter performance of the test.Negative results do not preclude Influenza A,B or SARS- VAQ0nfmmvxxxfu and should not be used as the sole basis fortreatment or other management decisions. Results from theMofangbas Raquel Influenza A/B & COV2 should be [...] out diseases caused by other bacterialor viral pathogens.28096-4PPAD-FkU-4 RNA Resp Ql ТАТЬЯНА+probeLNNOSNo O rganisms [id number] Organisms Detected Reviewed by Bandar Cleveland PA-C on 1; All test results are final unless otherwise noted. Reported Physicians [facility] Ordered by Bandar Cleveland PA-C on 07/25/2020 Collected: 07/25/2020 Reported: 07/25/2020 18:47 Reported Physicians See Note None Note: Reported Physicians:Ordering: Janice Wilsonending: Kami Cleveland To: Health, Public Reviewed by Bandar Cleveland PA-C on 1; All test results are final unless otherwise noted. Extended hours FLU/COV2 NAAT [facility] Ordered by Bandar Cleveland PA-C on 07/25/2020 Collected: 07/25/2020 Reported: 07/25/2020 18:47 Extended hours FLU/COV2 NAAT See Note None Note: TNPNo Reportable ResultLTNPNo Repo rtable CspsfxH4VZO Reviewed by Bandar Cleveland PA-C on 1; All test results are final unless otherwise noted. Reported Physicians [facility] Ordered by Bandar Cleveland PA-C on 07/25/2020 Collected: 07/25/2020 Reported: 07/25/2020 18:47 Reported Physicians See Note None Note: Reported Physicians:Ordering: Janice Wilsonending: Kami Cleveland To: Health, Public Reviewed by Bandar Cleveland PA-C on 1; All test results are final unless otherwise noted. CBC W AUTO DIFF [facility] Ordered by Maya Barron [...] Auto See Note (0-2) N (Normal) Note: [id number] Ob banquet server: IG% IG% 100.1375 (B) Hct VFr [...] test results are final unless otherwise noted. [facility] Ordered by Maya Barron [...] are final unless otherwise noted. Reported Physicians [facility] Ordered by Maya Barron MD on 07/22/2020 Collected: 07/22/2020 Reported: 07/22/2020 02:00 Reported Physicians See Note None Note: Reported Physicians:Ordering: Dominic Landaverdeending: Alon Douglas To: Maya Barron Reviewed by Maya Barron MD on 07/24; All test results are final unless otherwise noted. Sweta Raquel SARS/FLU [facility] Ordered by Maya Barron MD on 07/22/2020 Collected: 07/22/2020 Reported: 07/22/2020 01:29 Sweta Raquel SARS/FLU See Note None Note: Sweta Raquel is a rapid, automated q ualitative anddifferentiation of Influenza type A,B and KRWW-QJT-7HGDG-RT-PCR testNORMAL VALUE IS "NOT DETECTED".Limitations of the sweta raquel Influenza A/B & RYRZ-HHP-7ipgkz method.Modifications to manufacturers recommendation and proceduresmay alter performance of the test.Negative results do not preclude Influenza A,B or SARS- OBN4yjbdhgpajh and should not be used as the [...] out diseases caused by other bacterialor viral pathogens.34833-3YWWQ-ZqA-9 RNA Resp Ql ТАТЬЯНА+probeLNNOSNo O rganisms [id number] Organisms Detected Reviewed by Maya Barron MD on 07/24; All test results are final unless otherwise noted. Reported Physicians [facility] Ordered by Maya Barron MD on 07/22/2020 Collected: 07/22/2020 Reported: 07/22/2020 01:29 Reported Physicians See Note None Note: Reported Physicians:Ordering: Dominic Landaverdeending: Alon Douglas To: Maya Barron Reviewed by Maya Barron MD on 07/24; All test results are final unless otherwise noted. UA W/ CULTURE IF ABNORMAL [facility] Ordered by Maay Barron MD on 07/22/2020 Collected: 07/22/2020 Reported: 07/22/2020 01:10 Urobilinogen Ur Ql See Note (0.2-1 EU/dl) None Note: 0.2 EU/dl0.2 EU/[id number] E U/dlResponsible Observer: UROBILINOGEN UROBILINOGEN 300.4500 (C) RBC # Ur Strip NEGATIVE (NEGATIVE) None Note: Responsible Observer: BLOOD BLOOD 300.4652 (C) Prot Ur Ql Strip See Note (NEGATIVE) None Note: [id number] EResponsible Observer: PROTEIN PROTEIN 300.3750 (C) Ketones Ur Ql Strip See Note (NEGATIVE) None Note: [id number] EResponsible Observer: KETONE KETONE 300.3900 (C) Bilirub Ur Ql Strip.auto See Note (NEGATIVE) None Note: [id number] EResponsible Observer: BILIRUBIN BILIRUBIN 300.4550 (C) Glucose Ur Strip.auto-mCnc NEGATIVE (NEGATIVE) None Note: Responsible Observer: GLUCOSE GLUC OSE 300.3850 (C) Appearance Ur See Note (CLEAR) None Note: CLEARCLEARLCLEARResponsible Observ er: APPEARANCE APPEARANCE 300.3400 (A) Color Ur See Note None Note: YELLOWYELLOWLYELLOWResponsible Obs erver: COLOR COLOR 300.3330 (A) Leukocyte esterase Ur Ql Strip See Note (NEGATIVE) None Note: [id number] EResponsible Observer: LEUKOCYTES LEUKOCYTES 300.3576 (C) Nitrite Ur Ql Strip See Note (NEGATIVE) None Note: [id number] EResponsible Observer: NITRITE NITRITE 300.3652 (B) pH [...] are final unless otherwise noted. Reported Physicians [facility] Ordered by Maya Barron MD on 07/22/2020 Collected: 07/22/2020 Reported: 07/22/2020 01:11 Reported Physicians See Note None Note: Reported Physicians:Ordering: Dominic Landaverdeending: Alon Douglas To: Maya Barron Reviewed by Maya Barron MD on 07/24; All test results are final unless otherwise noted. Extended hours FLU/COV2 NAAT [facility] Ordered by Maya Barron MD on 07/22/2020 Collected: 07/22/2020 Reported: 07/22/2020 01:29 Extended hours FLU/COV2 NAAT See Note None Note: TNPNo Reportable ResultLTNPNo Repo rtable GqnwjzE7UDU Reviewed by Maya Barron MD on 07/24; All test results are final unless otherwise noted. Reported Physicians [facility] Ordered by Maya Barron MD on 07/22/2020 Collected: 07/22/2020 Reported: 07/22/2020 01:29 Reported Physicians See Note None Note: Reported Physicians:Ordering: Hong LandaverdeAttending: Alon Douglas To: Maya Barron Reviewed by Maya Barron MD on 07/24; All test results are final unless otherwise noted. Urine culture [facility] Ordered by Maya Barron MD on 07/19/2020 Collected: 07/19/2020 Reported: 07/21/2020 07:48 Bacteria Ur Cult See Note None Note: NGNo growth.L1NG Reviewed by Maya Barron MD on 07/21; All test results are final unless otherwise noted. Reported Physicians [facility] Ordered by Maya Barron MD on 07/19/2020 Collected: 07/19/2020 Reported: 07/21/2020 07:49 Reported Physicians See Note None Note: Reported Physicians:Ordering: Maya AlvarengaAttending: Maya Barron Reviewed by Maya Barron MD on 07/21; All test results are final unless otherwise noted. BHCG, QUANTITATIVE [facility] Ordered by Maya Barron [...] are final unless otherwise noted. Reported Physicians [facility] Ordered by Maya Barron MD on 07/17/2020 Collected: 07/17/2020 Reported: 07/17/2020 12:40 Reported Physicians See Note None Note: Reported Physicians:Ordering: Maya AlvarengaAttending: Maya Barron Reviewed by Maya Barron MD on 07/17; All test results are final unless otherwise noted. [employer] COVID-19 [employer]OL [facility] Ordered by Maya Barron [...] molecular test, if the virus mutates in [facility] region, Covid-19 may not be detected or may bedetected less predictably.ID NOW COVID-19 is intended for testing a swab directlywithout elution in viral transport media as dilution willresult in decreased detection of low positive samples thatare near the limit of detection of the test.SWAB SAMPLES ELUTED IN VTM ARE NOT APPROPRIATE FOR USE INTHIS TEST.NOSNo Organisms [id number] Organisms Detected Reviewed by Maya Barron MD on 05/31; All test results are final unless otherwise noted. Reported Physicians [facility] Ordered by Maya Barron MD on 05/31/2020 Collected: 05/31/2020 Reported: 05/31/2020 07:08 Reported Physicians See Note None Note: Reported Physicians:Ordering: Johnny HernándezAttending: Suzanne Cazares To: Maya Barron Reviewed by Maya Barron MD on 05/31; All test results are final unless otherwise noted. BHCG, QUANTITATIVE [facility] Ordered by Maya Barron MD on 05/26/2020 Collected: 05/26/2020 Reported: 05/26/2020 14:49 [facility] [address] MilliInternationalUnitsPerMilliLiter_[Arbitrary_Con (0-10) H (High) Note: @Instrument will [...] are final unless otherwise noted. Reported Physicians [facility] Ordered by Maya Barron MD on 05/26/2020 Collected: 05/26/2020 Reported: 05/26/2020 14:50 Reported Physicians See Note None Note: Reported Physicians:Ordering: Maya AlvarengaAttending: Maya Barron Reviewed by Maya Barron MD on 05/26; All test results are final unless otherwise noted. URINALYSIS [facility] Ordered by Maya Barron MD on 05/23/2020 Collected: 05/23/2020 Reported: 05/23/2020 17:19 Urobilinogen Ur Ql See Note (0.2-1 EU/dl) None Note: 0.2 EU/dl0.2 EU/[id number] E U/dlResponsible Observer: UROBILINOGEN UROBILINOGEN 300.4500 (C) RBC # Ur Strip NEGATIVE (NEGATIVE) None Note: Responsible Observer: BLOOD BLOOD 300.4650 (C) Prot Ur Ql Strip See Note (NEGATIVE) None Note: [id number] EResponsible Observer: PROTEIN PROTEIN 300.3750 (C) Ketones Ur Ql Strip See Note (NEGATIVE) None Note: [id number] EResponsible Observer: KETONE KETONE 300.3900 (C) Bilirub Ur Ql Strip.auto See Note (NEGATIVE) None Note: [id number] EResponsible Observer: BILIRUBIN BILIRUBIN 300.4550 (C) Glucose Ur Strip.auto-mCnc NEGATIVE (NEGATIVE) None Note: Responsible Observer: GLUCOSE GLUC OSE 300.3850 (C) Appearance Ur See Note (CLEAR) None Note: CLEARCLEARLCLEARResponsible Observ er: APPEARANCE APPEARANCE 300.3400 (A) Color Ur See Note None Note: YELLOWYELLOWLYELLOWResponsible Obs erver: COLOR COLOR 300.3300 (A) Leukocyte esterase Ur Ql Strip See Note (NEGATIVE) None Note: [id number] EResponsible Observer: LEUKOCYTES LEUKOCYTES 300.3575 (C) Nitrite Ur Ql Strip See Note (NEGATIVE) None Note: [id number] EResponsible Observer: NITRITE NITRITE 300.3650 (B) pH [...] are final unless otherwise noted. Urine culture [facility] Ordered by Maya Barron MD on 05/23/2020 Collected: 05/23/2020 Reported: 05/24/2020 09:24 Bacteria Ur Cult See Note None Note: NGNo growth.L1NG Reviewed by Maya Barron MD on 05/29; All test results are final unless otherwise noted. MEDMATCH [facility] Ordered by Maya Barron MD on 05/23/2020 Collected: 05/23/2020 Reported: 05/26/2020 17:09 MEDMATCH 1.000 (> or = 1.003) None Note: Responsible Observer: MEDMATCH MED MATCH 910.46323 ([employer]) Reviewed by Maya Barron MD on 05/29; All test results are final unless otherwise noted. Reported Physicians [facility] Ordered by Maya Barron MD on 05/23/2020 Collected: 05/23/2020 Reported: 05/26/2020 17:09 Reported Physicians See Note None Note: Reported Physicians:Ordering: Maya AlvarengaAttending: Maya Barron Reviewed by Maya Barron MD on 05/29; All test results are final unless otherwise noted. Varicella-Zoster IgG Antibody [facility] Ordered by Maya Barron [...] Antibody Immunity Screen, ACIF.THIS TEST WAS PERFORMED AT:[email or web address] [id number] ME RATI,MDResponsible Observer: VARICELLA IGG Varicella-Zoster IgG Antibody [id number] 214.6097 ([employer]) NOTES See Note None Note: Patient Street Address: [facility] [address] [place] [address] Reviewed by Maya Barron MD on 05/26; All test results are final unless otherwise noted. Reported Physicians [facility] Ordered by Maya Barron MD on 05/23/2020 Collected: 05/23/2020 Reported: 05/25/2020 17:11 Reported Physicians See Note None Note: Reported Physicians:Ordering: Maya AlvarengaAttending: Maya Barron Reviewed by Maya Barron MD on 05/26; All test results are final unless otherwise noted. CBC [facility] Ordered by Maya Barron [...] Auto See Note (0-2) N (Normal) Note: [id number] Ob banquet server: IG% IG% 100.1375 (B) Hct VFr [...] results are final unless otherwise noted. TSH [facility] Ordered by Maya Barron MD on 05/23/2020 Collected: 05/23/2020 Reported: 05/23/2020 18:38 TSH SerPl DL<=0.005 mIU/L-aCnc 1.87 MicroInternationalUnitsPerMilliLiter_[Arbitrary_Con (0.35-5. 50) N (Normal) Note: Responsible Observer: TSH TSH 600 .7055 (D) Reviewed by Maya Barron MD on 05/29; All test results are final unless otherwise noted. Lead (Venous) Wh.Bld [facility] Ordered by Maya Barron MD on 05/23/2020 Collected: 05/23/2020 Reported: 05/25/2020 17:11 Lead Bld-sCnc <1 (<5) None Note: See Note 1Note 1This test was [employer] and its analytical performancecharacteristics have been determined by [employer]. It has not been cleared or approved by theA. This assay has been validated pursuant to the CLIAregulations and is used for clinical purposes.THIS TEST WAS PERFORMED AT:[email or web address] [address]YRLYVO MERATI,MDResponsible Observer: Lead, WB Lead, Whole Blood [id number] 911.3809 ([facility]) NOTES See Note None Note: Patient Street Address: [facility]Patient City: [place]Patient State: [place]: [address] Reviewed by Maya Barron MD on 05/29; All test results are final unless otherwise noted. ncPN REF [facility] Ordered by Maya Barron MD on 05/23/2020 Collected: 05/23/2020 Reported: 05/27/2020 20:54 T pallidum Ab Ser Ql Aggl See Note (Nonreactive) None Note: [id number] onreactiveResponsible Observer: TP-PA Treponema pallidum Ab (TP-PA) [id number] 908.0286 ([facility]) HIV1 RNA SerPl Ql ТАТЬЯНА+probe See Note None Note: TNPNo Reportable ResultLTNPNo Repo rtable ResultLLEP.LIVENTNPResponsible Observer: HIV 1 RNA, QL T HIV 1 RNA, QL TMA [id number] 908.0254 ([facility]) HBV surface Ag SerPl Ql IA See Note (NON-REACTIVE) None Note: [id number]-MHCHYPRLEIS-[id number] 0NON-REACTIVEResponsible Observer: HBSAG Hepatitis B Surface Antigen 41342322 910.2004 ([facility]) RUBV IgG SerPl IA-aCnc 1.80 None Note: Index Interpretatio n ----- <0.90 Not consistent with Immunity 0.90-0.99 Equivocal > or = 1.00 Consistent with ImmunityThe presence of rubella IgG antibody suggestsimmunization or past or current infection withrubella virus.THIS TEST WAS PERFORMED AT:[email or web address] [address]LJZXYA MERATI,MDResponsible Observer: Rubella IgG Ab Rubella IgG Ab [id number] 911.2840 ([facility]) HIV1 Ab SerPlBld Ql IA.rapid See Note None Note: TNPNo Reportable ResultLTNPNo Repo rtable ResultLLEP.LIVENTNPResponsible Observer: HIV 1 AB HIV 1 AB [id number] 908.0250 ([facility]) HBsAg Confirmation See Note None Note: TNPNo Reportable ResultLTNPNo Repo rtable ResultLLEP.LIVENTNPResponsible Observer: HBsAg Confirm HBsAg Confirmation [id number] 910.2006 ([facility]) HIV (1&2) Screen, 4th Gen [...] for this purpose.For additional information please refer tohttp://[employer]/faq/UII605(This link is being provided for informational/educational purposes only.)The performance of this assay has not been clinicallyvalidated in patients less than 2 years old.Responsible Observer: HIV ABS HIV (1&2) Screen, 4th Gen [id number] 908.3418 ([facility]) Reviewed by Maya Barron MD on 05/29; All test results are final unless otherwise noted. Reported Physicians [facility] Ordered by Maya Barron MD on 05/23/2020 Collected: 05/23/2020 Reported: 05/27/2020 20:54 Reported Physicians See Note None Note: Reported Physicians:Ordering: Maya AlvarengaAttending: Maya Barron Reviewed by Maya Barron MD on 05/29; All test results are final unless otherwise noted. HCV RFX ТАТЬЯНА [facility] Ordered by Maya Barron MD on 05/23/2020 Collected: 05/23/2020 Reported: 05/25/2020 17:11 HCV Ab Ser Ql See Note (NON-REACTIVE) None Note: [id number] 7NON-REACTIVEResponsible Observer: HEP C ANTIBODY Hepatitis C Antibody [id number] 914.8305 ([facility]) HCV RNA Qualitative (ТАТЬЯНА) 0.59 (<1.00) None Note: HCV antibody was non-reactive. The re is no laboratoryevidence of HCV infection.In most cases, no further action is required. However,if recent HCV exposure is suspected, a test for HCV RNA(test code 66601) is suggested.For additional information please refer tohttp://[employer]/faq/ZRN55v0(This link is being provided for informational/educational purposes only.)THIS TEST WAS PERFORMED AT:[email or web address] [address]SHELLIMATTHEWGRACE MEANS,MDResponsible Observer: SIG TO C/O SIGNAL TO CUTOFF [id number] 065.7895 ([facility]) NOTES See Note None Note: Patient Street Address: [address] City: [facility] State: [facility] Zip Code: [address] Reviewed by Maya Barron MD on 05/26; All test results are final unless otherwise noted. Reported Physicians [facility] Ordered by Maya Barron MD on 05/23/2020 Collected: 05/23/2020 Reported: 05/25/2020 17:11 Reported Physicians See Note None Note: Reported Physicians:Ordering: Maya AlvarengaAttending: Maya Barron Reviewed by Maya Barron MD on 05/26; All test results are final unless otherwise noted. Type and Screen [facility] Ordered by Maya Barron [...] are final unless otherwise noted. Reported Physicians [facility] Ordered by Maya Barron MD on 05/23/2020 Collected: 05/23/2020 Reported: 05/23/2020 19:32 Reported Physicians See Note None Note: Reported Physicians:Ordering: Maya AlvarengaAttending: Maya Barron Reviewed by Maya Barron MD on 05/24; All test results are final unless otherwise noted. PROGESTERONE [facility] Ordered by Maya Barron [...] are final unless otherwise noted. Reported Physicians [facility] Ordered by Maya Barron MD on 04/27/2020 Collected: 04/27/2020 Reported: 04/27/2020 15:58 Reported Physicians See Note None Note: Reported Physicians:Ordering: Johnny HernándezAttending: Jos Castellanos To: Rubén Barron To: Cristino Castellanos Reviewed by Maya Barron MD on 04/30; All test results are final unless otherwise noted. BHCG, QUANTITATIVE [facility] Ordered by Maya Barron MD on 04/27/2020 Collected: 04/27/2020 Reported: 04/27/2020 14:40 [facility] 2353 MilliInternationalUnitsPerMilliLiter_[Arbitrary_Con (0-10) H (High) [...] are final unless otherwise noted. Reported Physicians [facility] Ordered by Maya Barron MD on 04/27/2020 Collected: 04/27/2020 Reported: 04/27/2020 14:40 Reported Physicians See Note None Note: Reported Physicians:Ordering: Cristino SnowAttending: Cristino CastellanosCopy To: Johnny CazaresCopyifan To: Maya Barron Reviewed by Maya Barron MD on 04/30; All test results are final unless otherwise noted. CBC W AUTO DIFF [facility] Ordered by Maya Barron [...] Auto See Note (0-2) N (Normal) Note: 0.20.4O34162873269.2Responsible Ob banquet server: IG% IG% 100.1375 (B) Hct VFr [...] are final unless otherwise noted. Reported Physicians [facility] Ordered by Maya Barron MD on 04/25/2020 Collected: 04/25/2020 Reported: 04/25/2020 22:11 Reported Physicians See Note None Note: Reported Physicians:Ordering: Aj Ferreiraending: Jos Rivas To: Maya Barron Reviewed by Maya Barron MD on 04/26; All test results are final unless otherwise noted. BHCG, QUANTITATIVE [facility] Ordered by Maya Barron MD on 04/25/2020 Collected: 04/25/2020 Reported: 04/25/2020 22:11 [facility] 1758 MilliInternationalUnitsPerMilliLiter_[Arbitrary_Con (0-10) H (High) Note: @Instrument [...] are final unless otherwise noted. Reported Physicians [facility] Ordered by Maya Barron MD on 04/25/2020 Collected: 04/25/2020 Reported: 04/25/2020 22:11 Reported Physicians See Note None Note: Reported Physicians:Ordering: Aj Ferreiraending: Jos Rivas To: Maya Barron Reviewed by Maya Barron MD on 04/26; All test results are final unless otherwise noted. Urine culture [facility] Ordered by Maya Barron MD on 04/25/2020 Collected: 04/25/2020 Reported: 04/27/2020 04:50 Bacteria Ur Cult See Note None Note: NGNo growth.L1NG NOTES See Note None Note: @ NICOLE DATE was changed from 04/26 to 04/25/20@ by POMCYifan. Reviewed by Maya Barron MD on 04/30; All test results are final unless otherwise noted. Reported Physicians [facility] Ordered by Maya Barron MD on 04/25/2020 Collected: 04/25/2020 Reported: 04/27/2020 04:51 Reported Physicians See Note None Note: Reported Physicians:Ordering: Aj Ferreiraending: Jos Rivas To: Maya Barron Reviewed by Maya Barron MD on 04/30; All test results are final unless otherwise noted. ADD ON MICROSCOPIC [facility] Ordered by Maya Barron MD on 04/25/2020 Collected: 04/25/2020 Reported: 04/25/2020 21:54 ADD ON MICROSCOPIC See Note (0-5) None Note: NOTES OTHER/NOT INTERPRETED Bacteria UrnS Ql Micro SMALL AMOUNT Bacteria UrnS Ql Micro SMALL AMOUNT Bacteria UrnS Ql Micro L Bacteria UrnS Ql Micro Bacteria UrnS Ql Micro Bacteria UrnS Ql Micro Bacteria UrnS Ql Micro [id number] Bacteria UrnS Ql Micro Bacteria UrnS Ql [...] are final unless otherwise noted. Reported Physicians [facility] Ordered by Maya Barron MD on 04/25/2020 Collected: 04/25/2020 Reported: 04/25/2020 21:54 Reported Physicians See Note None Note: Reported Physicians:Ordering: Aj Ferreiraending: Jos Rivas To: Maya Barron Reviewed by Maya Barron MD on 04/26; All test results are final unless otherwise noted. URINALYSIS [facility] Ordered by Maya Barron MD on 04/25/2020 Collected: 04/25/2020 Reported: 04/25/2020 21:54 Urobilinogen Ur Ql See Note (0.2-1 EU/dl) None Note: 0.2 EU/dl0.2 EU/[id number] E U/dlResponsible Observer: UROBILINOGEN UROBILINOGEN 300.4500 (C) RBC # Ur Strip NEGATIVE (NEGATIVE) None Note: Responsible Observer: BLOOD BLOOD 300.4650 (C) Prot Ur Ql Strip See Note (NEGATIVE) None Note: [id number] EResponsible Observer: PROTEIN PROTEIN 300.3750 (C) Ketones Ur Ql Strip See Note (NEGATIVE) None Note: [id number] EResponsible Observer: KETONE KETONE 300.3900 (C) Bilirub Ur Ql Strip.auto See Note (NEGATIVE) None Note: [id number] EResponsible Observer: BILIRUBIN BILIRUBIN 300.4550 (C) Glucose Ur Strip.auto-mCnc NEGATIVE (NEGATIVE) None Note: Responsible Observer: GLUCOSE GLUC OSE 300.3850 (C) Appearance Ur See Note (CLEAR) None Note: CLEARCLEARLCLEARResponsible Observ er: APPEARANCE APPEARANCE 300.3400 (A) Color Ur See Note None Note: YELLOWYELLOWLYELLOWResponsible Obs erver: COLOR COLOR 300.3300 (A) Leukocyte esterase Ur Ql Strip See Note (NEGATIVE) None Note: [id number]@DO MICR O!!!!Responsible Observer: LEUKOCYTES LEUKOCYTES 300.3575 (C) Nitrite Ur Ql Strip See Note (NEGATIVE) None Note: [id number] EResponsible Observer: NITRITE NITRITE 300.3650 (B) pH [...] are final unless otherwise noted. Reported Physicians [facility] Ordered by Maya Barron MD on 04/25/2020 Collected: 04/25/2020 Reported: 04/25/2020 21:54 Reported Physicians See Note None Note: Reported Physicians:Ordering: Aj Ferreiraending: Jos Rivas To: Maya Barron Reviewed by Maya Barron MD on 04/26; All test results are final unless otherwise noted. BHCG, QUANTITATIVE [facility] Ordered by Maya Barron [...] are final unless otherwise noted. Reported Physicians [facility] Ordered by Maya Barron MD on 04/18/2020 Collected: 04/18/2020 Reported: 04/18/2020 15:11 Reported Physicians See Note None Note: Reported Physicians:Ordering: Maya AlvarengaAttending: Maya Barron Reviewed by Maya Barron MD on 04/19; All test results are final unless otherwise noted. ADD ON MICROSCOPIC [facility] Ordered by Maya Barron MD on 04/16/2020 Collected: 04/16/2020 Reported: 04/16/2020 23:51 ADD ON MICROSCOPIC See Note (0-5) None Note: NOTES OTHER/NOT INTERPRETED Bacteria UrnS Ql Micro SMALL AMOUNT Bacteria UrnS Ql Micro SMALL AMOUNT Bacteria UrnS Ql Micro L Bacteria UrnS Ql Micro Bacteria UrnS Ql Micro Bacteria UrnS Ql Micro Bacteria UrnS Ql Micro [id number] Bacteria UrnS Ql Micro Bacteria UrnS Ql [...] are final unless otherwise noted. Reported Physicians [facility] Ordered by Maya Barron MD on 04/16/2020 Collected: 04/16/2020 Reported: 04/16/2020 23:52 Reported Physicians See Note None Note: Reported Physicians:Ordering: Damon , VinodAttending: Damon, VinodCopy To: Maya Barron Reviewed by Maya Barron MD on 04/17; All test results are final unless otherwise noted. UA W/ CULTURE IF ABNORMAL [facility] Ordered by Maya Barron MD on 04/16/2020 Collected: 04/16/2020 Reported: 04/16/2020 23:51 Urobilinogen Ur Ql See Note (0.2-1 EU/dl) None Note: 0.2 EU/dl0.2 EU/[id number] E U/dlResponsible Observer: UROBILINOGEN UROBILINOGEN 300.4500 (C) RBC # Ur Strip NEGATIVE (NEGATIVE) None Note: Responsible Observer: BLOOD BLOOD 300.4652 (C) Prot Ur Ql Strip See Note (NEGATIVE) None Note: [id number] EResponsible Observer: PROTEIN PROTEIN 300.3750 (C) Ketones Ur Ql Strip See Note (NEGATIVE) None Note: [id number] ble Observer: KETONE KETONE 300.3900 (C) Bilirub Ur Ql Strip.auto See Note (NEGATIVE) None Note: [id number] EResponsible Observer: BILIRUBIN BILIRUBIN 300.4550 (C) Glucose Ur Strip.auto-mCnc NEGATIVE (NEGATIVE) None Note: Responsible Observer: GLUCOSE GLUC OSE 300.3850 (C) Appearance Ur See Note (CLEAR) None Note: CLEARCLEARLCLEARResponsible Observ er: APPEARANCE APPEARANCE 300.3400 (A) Color Ur See Note None Note: YELLOWYELLOWLYELLOWResponsible Obs erver: COLOR COLOR 300.3330 (A) Leukocyte esterase Ur Ql Strip See Note (NEGATIVE) None Note: [id number] E@DO MICRO!!!!A Culture has been added to this specimen per established criteriaResponsible Observer: LEUKOCYTES LEUKOCYTES 300.3576 (C) Nitrite Ur Ql Strip See Note (NEGATIVE) None Note: [id number] EResponsible Observer: NITRITE NITRITE 300.3652 (B) pH [...] are final unless otherwise noted. Urine culture [facility] Ordered by Maya Barron [...] are final unless otherwise noted. Reported Physicians [facility] Ordered by Maya Barron MD on 04/16/2020 Collected: 04/16/2020 Reported: 04/18/2020 06:47 Reported Physicians See Note None Note: Reported Physicians:Ordering: Randy Joseending: Jose E JoseodCopyifan To: Maya Barron Reviewed by Maya Barron MD on 04/18; All test results are final unless otherwise noted. CBC W AUTO DIFF [facility] Ordered by Maya Barron [...] Auto See Note (0-2) N (Normal) Note: [id number] Ob banquet server: IG% IG% 100.1375 (B) Hct VFr [...] are final unless otherwise noted. BHCG, QUANTITATIVE [facility] Ordered by Maya Barron [...] are final unless otherwise noted. Reported Physicians [facility] Ordered by Maya Barron MD on 04/16/2020 Collected: 04/16/2020 Reported: 04/16/2020 22:47 Reported Physicians See Note None Note: Reported Physicians:Ordering: Damon VinodAttending: Jose E JoseodCopy To: Maya Barron Reviewed by Maya Barron MD on 04/17; All test results are final unless otherwise noted. CMP [facility] Ordered by Maya Barron [...] are final unless otherwise noted. Reported Physicians [facility] Ordered by Maya Barron MD on 04/16/2020 Collected: 04/16/2020 Reported: 04/16/2020 22:44 Reported Physicians See Note None Note: Reported Physicians:Ordering: Romel Josettending: Jose E JoseodCopy To: Maya Barron Reviewed by Maya Barron MD on 04/17; All test results are final unless otherwise noted. LIPASE [facility] Ordered by Maya Barron MD on 04/16/2020 Collected: 04/16/2020 Reported: 04/16/2020 22:44 Lipase SerPl-cCnc 107 enzyme_unit_per_liter (73-393) N (Normal) Note: Responsible Observer: Lipase Lipas e 400.2310 (G) Reviewed by Maya Barron MD on 04/17; All test results are final unless otherwise noted. Reported Physicians [facility] Ordered by Maya Barron MD on 04/16/2020 Collected: 04/16/2020 Reported: 04/16/2020 22:44 Reported Physicians See Note None Note: Reported Physicians:Ordering: Damon , VinodAttending: Damon, VinodCopy To: Maya Barron Reviewed by Maya Barron MD on 04/17; All test results are final unless otherwise noted. Type and Screen [facility] Ordered by Maya Barron [...] are final unless otherwise noted. Reported Physicians [facility] Ordered by Maya Barron MD on 04/16/2020 Collected: 04/16/2020 Reported: 04/16/2020 23:09 Reported Physicians See Note None Note: Reported Physicians:Ordering: Jose E JoseodAttending: Alix Jose To: Maya Barron Reviewed by Maya Barron MD on 04/17; All test results are final unless otherwise noted. CBC [facility] Ordered by Maya Barron MD on 04/10/2020 [address] [place], [address] Collected: 04/10/2020 Reported: 04/11/2020 11:35 tel : [...] test results are final unless otherwise noted. [facility] Ordered by Maya Barron MD on 04/10/[address] [place] [address], [facility] Collected: 04/10/2020 Reported: 04/11/2020 11:35 [...] Ordered by Maya Barron MD on 04/10/[address] [place] [address], [address] Collected: 04/10/2020 Reported: 04/11/2020 11:35 tel :[phone] ext. [phone] TSH 1.336 uIu/mL (0.5-5.8) None Note: Responsible Observer: AW Reviewed by Maya Barron MD on 04/12; All test results are final unless otherwise noted. -[facility] Ordered by Maya Barron MD on 02/25/2020 Collected: 02/25/2020 Reported: 02/28/2020 15:53 C trach rRNA XXX Ql ТАТЬЯНА+probe See Note (NOT DETECTED) None Note: NOT DETECTEDNOT DETECTEDLNOT DETEC TEDNOT [id number] DETECTEDResponsible Observer: C.Trach RNA Chlamydia trachomatis DNA-ТАТЬЯНА [id number] 913.9900 ([facility]) N gonorrhoea rRNA XXX Ql ТАТЬЯНА+probe See Note (NOT DETECTED) None Note: NOT DETECTEDNOT DETECTEDLNOT DETEC TEDNOT [id number] DETECTEDResponsible Observer: GC RNA Neisseria gonorrhoeae DNA -ТАТЬЯНА [id number] 913.9905 ([facility]) Chlamydia/GC DNA Note SEE NOTE None Note: The analytical performance charact eristics of thisassay, when used to test SurePath(TM) specimens have beendetermined by [employer]. The modifications havenot been cleared or approved by the FDA. This assay hasbeen validated pursuant to the CLIA regulations and isused for clinical purposes.For additional information, please refer tohttps://education.[employer]/faq/NEO400(This link is being provided for information/educational purposes only.)THIS TEST WAS PERFORMED AT:[email or web address] [address]CLAUDY ONEILLesponsible Observer: GC/Chlam Note Chlamydia/GC DNA Note [id number] 913.9907 (A) NOTES See Note None Note: Source Of Specimen: URINE Reviewed by Maya Barron MD on 02/28; All test results are final unless otherwise noted. Reported Physicians [facility] Ordered by Maya Barron MD on 02/25/2020 Collected: 02/25/2020 Reported: 02/28/2020 15:54 Reported Physicians See Note None Note: Reported Physicians:Ordering: Cara Alvarengaending: Maya Barron Reviewed by Maya Barron MD on 02/28; All test results are final unless otherwise noted. Urine culture-[facility] Ordered by Maya Barron MD on 02/25/2020 Collected: 02/25/2020 Reported: 02/26/2020 13:38 Urine culture result No growth None Reviewed by Maya Barron MD on 02/27; All test results are final unless otherwise noted. Reported Physicians [facility] Ordered by Maya Barron MD on 02/25/2020 Collected: 02/25/2020 Reported: 02/26/2020 13:39 Reported Physicians See Note None Note: Reported Physicians:Ordering: Cara Alvarengaending: Maya Barron Reviewed by Maya Barron MD on 02/27; All test results are final unless otherwise noted. Test Office Lab Ordered by Maya Barron MD on 02/25/2020 [address] [place], [address] Specimen Source: Urine Collected: 02/25/2020 Reporte d: 02/25/2020 11:15 tel: Urine HCG neg (negative) N (Normal) Reviewed by Maya Barron MD on 02/24; All test results are final unless otherwise noted. Urinalysis w/out microscopy Office Lab Ordered by Maya Barron MD on 02/25/2020 [address] [place], [address] Specimen Source: Urine Collected: 02/25/2020 Reporte d: 02/25/2020 11:02 tel:[phone] bilirubin neg (neg) N (Normal) blood neg [...] otherwise noted. UA W/ CULTURE IF ABNORMAL [facility] Ordered by Maya Barron MD on 01/29/2020 Collected: 01/29/2020 Reported: 01/29/2020 00:22 Urobilinogen Ur Ql See Note (0.2-1 EU/dl) None Note: 1 EU/dl1 EU/dlL1 EU/dl1 EU/tjE4937 [id number] EU/dlResponsible Observer: UROBILINOGEN UROBILINOGEN 300.4500 (C) RBC # Ur Strip NEGATIVE (NEGATIVE) None Note: Responsible Observer: BLOOD BLOOD 300.4652 (C) Prot Ur Ql Strip See Note (NEGATIVE) None Note: NEGATIVENEGATIVELNEGATIVENEGATIVEL [id number] Observer: PROTEIN PROTEIN 300.3750 (C) Ketones Ur Ql Strip See Note (NEGATIVE) None Note: 15 mg/dL15 mg/dLL15 mg/dL15 mg/dLL [id number] mg/dLResponsible Observer: KETONE KETONE 300.3900 (C) Bilirub Ur Ql Strip.auto See Note (NEGATIVE) None Note: NEGATIVENEGATIVELNEGATIVENEGATIVEL [id number] Observer: BILIRUBIN BILIRUBIN 300.4550 (C) Glucose Ur Strip.auto-mCnc NEGATIVE (NEGATIVE) None Note: Responsible Observer: GLUCOSE GLUC OSE 300.3850 (C) Appearance Ur See Note (CLEAR) None Note: CLEARCLEARLCLEARCLEARLCLEARRespons ible Observer: APPEARANCE APPEARANCE 300.3400 (A) Color Ur See Note None Note: YELLOWYELLOWLYELLOWYELLOWLYELLOWRe sponsible Observer: COLOR COLOR 300.3330 (A) Leukocyte esterase Ur Ql Strip See Note (NEGATIVE) None Note: NEGATIVENEGATIVELNEGATIVENEGATIVEL [id number] Observer: LEUKOCYTES LEUKOCYTES 300.3576 (C) Nitrite Ur Ql Strip See Note (NEGATIVE) None Note: NEGATIVENEGATIVELNEGATIVENEGATIVEL [id number] Observer: NITRITE NITRITE 300.3652 (B) pH Ur [...] are final unless otherwise noted. Reported Physicians [facility] Ordered by Maya Barron MD on 01/29/2020 Collected: 01/29/2020 Reported: 01/29/2020 00:22 Reported Physicians See Note None Note: Reported Physicians:Ordering: Yoli NapolesAttending: Charles Silva To: Maya Barron Reviewed by Maya Barron MD on 01/30; All test results are final unless otherwise noted. BHCG,SERUM QUALITATIVE [facility] Ordered by Maya Barron MD on 01/28/2020 Collected: 01/28/2020 Reported: 01/28/2020 22:58 HCG SerPl-sCnc NEGATIVE (NEGATIVE) None Note: @Reenter manual test result: NEGAT LAYA@by Sybil Whatley at 01/28/20 9078.Responsible Observer: BHCG SERUM BHCG SERUM 800.0900 (A) NOTES See Note None Note: @ DID THE CONTROL BAND APPEAR? YES @ DID THE BACKGROUND CLEAR? YES Reviewed by Maya Barron MD on 01/30; All test results are final unless otherwise noted. Reported Physicians [facility] Ordered by Maya Barron MD on 01/28/2020 Collected: 01/28/2020 Reported: 01/28/2020 22:58 Reported Physicians See Note None Note: Reported Physicians:Ordering: Yoli NapolesAttending: Charles Silva To: Maya Barron Reviewed by Maya Barron MD on 01/30; All test results are final unless otherwise noted. CBC W AUTO DIFF [facility] Ordered by Maya Barron [...] Auto See Note (0-2) N (Normal) Note: [id number] ible Observer: IG% IG% 100.1375 (B) Hct [...] are final unless otherwise noted. Reported Physicians [facility] Ordered by Maya Barron MD on 01/28/2020 Collected: 01/28/2020 Reported: 01/28/2020 23:00 Reported Physicians See Note None Note: Reported Physicians:Ordering: Yoli NapolesAttending: Charles Silva To: Maya Barron Reviewed by Maya Barron MD on 01/30; All test results are final unless otherwise noted. Urinalysis w/out microscopy Office Lab Ordered by Maya Barron MD on [address] [place] [address], [address] Specimen Source: Urine Collected: Reported: 2020 11:41 tel:[phone] bilirubin NEGATIVE (neg) N (Normal) blood NEGATIVE [...] Ordered by Maya Barron MD on 12/27/[address] [place] [address], [phone] Specimen Source: Urine Collected: Reported: 2019 13:46 tel:[phone] Urine HCG negative (negative) N (Normal) Reviewed [...] Procedures and Surgical History Includes: Procedures from 12/26/2019 through 12/25/2020 Procedures Code Diagnosis Performing Provider Service Location Service Date REVISIT- office visit KAYLEIGH 23 weeks gestatio n of Maya Barron MD [facility], [facility] 12/05/2020 REVISIT- office visit KAYLEIGH 22 weeks gestatio n of Maya Barron MD [facility], [facility] 11/28/2020 no charge procedure NC Tension-type headache, unspe cified, intractable Maya Barron MD [facility], [facility] 11/21/2020 REVISIT- office visit KAYLEIGH 21 weeks gestatio n of Maya Barron MD [facility], [facility] 11/21/2020 REVISIT- office visit KAYLEIGH 20 weeks gestatio n of Maya Barron MD [facility], [facility] 11/14/2020 no charge procedure NC Palpitations Maya Barron MD [facility], [facility] 11/03/2020 no charge procedure NC Palpitations Maya Barron MD [facility], [facility] 10/31/2020 REVISIT- office visit KAYLEIGH 18 weeks gestatio n of Maya Barron MD [facility], [facility] 10/31/2020 REVISIT- office visit KAYLEIGH 17 weeks gestatio n of Maya Barron MD [facility], [facility] 10/24/2020 no charge procedure NC Palpitations Maya Barron MD [facility], [facility] 10/17/2020 REVISIT- office visit KAYLEIGH 16 weeks gestatio n of Maya Barron MD [facility], [facility] 10/17/2020 Holter Monitor, Physician review & interpretation only 64713 Palpitations Michel Villalba MD [facility] Outpt 10/11/2020 REVISIT- office visit KAYLEIGH 15 weeks gestatio n of Maya Barron MD [facility], [facility] 10/11/2020 REVISIT- office visit KAYLEIGH 13 weeks gestatio n of Maya Barron MD [facility], [facility] 09/27/2020 REVISIT- office visit KAYLEIGH 12 weeks gestatio n of Maya Barron MD [facility], [facility] 09/19/2020 EKG- Electrocardiogram/12 lead 47618 Chest pain, unspe cified Cat Huston [facility], [facility] 09/11/2020 REVISIT- office visit [facility] 10 weeks [facility] 09/05/2020 REVISIT- office visit KAYLEIGH 8 weeks gestation of Maya Barron MD [facility], [facility] 08/22/2020 Urinalysis w/o Microscopy (Distinct Seperate service-same da y) 45444 Frequency of micturition- Urinary Frequency Maya Barron MD [facility], [facility] 08/15/2020 RAPID STREP 85865 Acute pharyngitis, unspecified Maya Barron MD [facility], [facility] 08/15/2020 Initial Obstetrical Care Office Visit OB Le ss than 8 weeks gestation of Cat Huston [facility], [facility] 021 Urinalysis w/o Microscopy 36557 Frequency of micturiti on- Urinary Frequency Maya Barron MD [facility], [facility] 07/19/2020 REVISIT- office visit KAYLEIGH Threatened Alicja Barron MD [facility], [facility] 05/26/2020 NO CHARGE- Nurse visit- OB establish [employer] Thr eatened , state, incidental Maya Barron MD [facility], [facility] 020 General Health Panel( CMP, CBC, TSH) 15099 Dysmenorrhe a, unspecified Maya Barron MD [facility], [facility] 04/10/2020 Venipuncture (routine) 54557 Dysmenorrhea, unspecified Mariela Barron MD [facility], [facility] 04/10/2020 Brief Emotional Behavior Assessment ( add -59 mod) 43724 Screening for Mental Health/Behavioral Disorder, Unspecified Maya Barron MD [facility], [facility] 04/10/2020 Urine Test 90133 Pelvic and perineal pain, Frequency of micturition- Urinary Frequency Maya Barron MD [facility], [facility] 02/25/2020 Urinalysis w/o Microscopy 90408 Frequency of micturiti on- Urinary Frequency Maya Barron MD [facility], [facility] 02/25/2020 Urine Test 23216 Amenorrhea, unspecified Maya Barron MD [facility], [facility] 12/27/2019 Surgical History Last Updated No surgical [...] 12:00AM Act laya Encounters Includes: Encounters from 12/26/2019 through 12/25/2020 Encounter Provider Location Date Check-In Time Check-Out Time D iagnosis telephone conversation Michel Villalba MD 1 12/14/2020 9:13AM 12/14/2020 11:59PM Atypical Chest Pain telephone conversation Michel Villalba MD 1 12/14/2020 6:45PM 12/14/2020 11:59PM Hypotension [facility] 12/19/2020 12/14/2020 2:14PM 12/14/2020 11:59PM Fracture of Fifth Ce rvical Vertebral Body, History of Psychiatric Disorders, Reactive Airway Disease Problem visit - not contagious Bandar Cleveland PA-C [facility], [facility] 12/14/2020 2:08PM 2:52PM Tension-type Headach e REVISIT- Routine (OB) Visit Maya Barron MD [facility] 12/05/2020 11:17AM 12:08PM REVISIT- Routine (OB) Visit Maya Barron MD [facility] 11/28/2020 1:34PM 1:51PM Chronic Care Mgt - Office Visit Maya Barron MD [facility], [facility] 11/21/2020 2:10PM 2:35PM Fracture of Fift h Cervical Vertebral Body, History of Psychiatric Disorders, Reactive Airway Disease REVISIT- Routine (OB) Visit Maya Barron MD [facility] 11/21/2020 11:33AM 12:01PM REVISIT- Routine (OB) Visit Maya Barron MD [facility] 11/14/2020 9:55AM 10:36AM REVISIT- Routine (OB) Visit Maya Barron MD [facility] 11/07/2020 11:42AM 12:02PM OB- ILL VISIT Maya Barron MD [facility], [facility] 11/03/2020 3:45PM 4:29PM , Generalized Anxie ty Disorder, Panic Disorder, Chest Pain Chronic Care Mgt - Office Visit Maya Barron MD [facility], [facility] 11/03/2020 2:37PM 3:38PM Chronic Care Mgt - Office Visit Maya Barron MD [facility], [facility] 10/31/2020 3:23PM 3:24PM Fracture of Fift h Cervical Vertebral Body, History of Psychiatric Disorders, Reactive Airway Disease REVISIT- Routine (OB) Visit Maya Barron MD [facility] 10/31/2020 9:54AM 10:24AM Chronic Care Mgt - Office Visit Maya Barron MD [facility], [facility] 10/24/2020 2:16PM 11:59PM REVISIT- Routine (OB) Visit Maya Barron MD [facility] 10/24/2020 10:00AM 10:47AM REVISIT- Routine (OB) Visit Maya Barron MD [facility] 10/17/2020 11:24AM 12:12PM Chronic Care Mgt - Office Visit Maya Barron MD [facility], [facility] 10/17/2020 11:25AM 12:11PM Fracture of Fift h Cervical Vertebral Body, History of Psychiatric Disorders, Reactive Airway Disease REVISIT- Routine (OB) Visit Maya Barron MD [facility] 10/11/2020 9:44AM 10:15AM OB- ILL VISIT Maya Barron MD [facility], [facility] 10/04/2020 2:12PM 2:31PM Presyncope Syndrome, Tachyca rdia, Palpitations, Difficulty Breathing (Dyspnea), Weeks of Gestation - 14 REVISIT- Routine (OB) Visit Maya Barron MD [facility] 09/27/2020 1:36PM 1:59PM telephone conversation Michel Villalba MD 09/19/2020 9:43PM 09/19/2020 11:59PM Atypical Chest Pain REVISIT- Routine (OB) Visit Maya Barron MD [facility] 09/19/2020 9:48AM 10:14AM REVISIT- Routine (OB) Visit Cat Gutierrez [facility], [facility] 09/11/2020 3:22PM 4:16PM REVISIT- Routine (OB) Visit Cat Gutierrez [facility], [facility] 09/05/2020 9:37AM 10:00AM TCMNV phone call- NO CHARGE Cat Gutierrez [facility] 09/04/2020 09/05/2020 4:54PM 09/05/2020 11:59PM [Patient Encounter] Cat Gutierrez [facility] 08/31/2020 021 2:21PM 08/22/2020 11:59PM telephone conversation Michel Villalba MD 08/2808/22/2020 11:00AM 08/22/2020 11:59PM REVISIT- Routine (OB) Visit Maya Barron MD [facility] 08/22/2020 1:56PM 2:19PM sick visit Maya Barron MD [facility] 0 08/15/2020 9:36AM 10:12AM Upper Respiratory Infection Acute, Pollakiuria Obstetrics/ first visit Cat Gutierrez [facility] 08/09/2020 9:22AM 10:56AM followup Cat Gutierrez Counts include 234 beds at the [facility] 0 08/02/2020 10:18AM 11:42AM Generalized Anxiety Disorder , Early Stage, Abdominal Pain telephone conversation Michel Villalba MD 07/26/2020 7:59AM 07/26/2020 11:59PM [Patient Encounter] Cat Gutierrez [facility] 07/28/2020 021 2:20PM 07/26/2020 11:59PM followup Maya Barron MD [facility] 0 07/26/2020 10:39AM 11:02AM , Generalized Anxie ty Disorder sick visit Bandar Cleveland PA-C [facility] 3:36PM 4:30PM Pyrexia followup Maya Barron MD [facility] 0 07/19/2020 10:52AM 11:30AM , Generalized Anxie ty Disorder, Pollakiuria followup Maya Barron MD [facility] 1 09/11/2019 10:43AM 11:14AM Atypical Chest Pain, Adjustm ent Disorder followup Maya Barron MD [facility] 1 08/07/2019 10:43AM 10:59AM Missed followup Maya Barron MD [facility] 05/26 1:45PM 2:11PM with Threatened Problem visit - not contagious Maya Barron MD [facility] 05/24/2020 11:13AM 12:00PM with T hreatened [Patient Encounter] Maya Barron MD 05/24/2020 020 10:17AM 04/19/2020 11:59PM followup Maya Barron MD [facility] 1 11:51AM 12:08PM ANNUAL PE-followup Maya Barron MD [facility] 04/10/2020 8:42AM 9:13AM Routine History and Physical Adult (18 - 64 Yrs), Dysmenorrhea sick visit Maya Barron MD [facility] 0 03/06/2020 3:32PM 3:42PM Sinusitis sick visit Maya Barron MD [facility] 0 02/25/2020 10:46AM 11:12AM Pollakiuria, Female Pelvic P ain followup Maya Barron MD [facility] 01/31 2:25PM 2:51PM Back Strain followup Maya Barron MD [facility] 12/26 1:25PM 1:42PM Amenorrhea, Clostridium Difficile Insurance Includes: Active Insurance Policies Plan Name Member ID Group # Subscriber Relationship Effective Da greg 1 - MANAGED MEDICAID [facility] [id number] Georgiana Nguyen 07/14/2020 - Unknown Advance Directives Includes: Current Advance DirectivesNo Advance Directives Recorded Health Concerns Includes: Active Health ConcernsNo Active Health Concerns Recorded Goals Includes: Active GoalsNo Active Goals Recorded Interventions Includes: Interventions for active GoalsNo Interventions Recorded Evaluations & Outcomes Includes: Evaluations & Outcomes for active GoalsNo Outcomes Recorded
--- OUTSIDE RECORDS SUMMARY | 2021-04-29 16:51 | CCD ---
Author Author [facility] Organization [facility] Address [address] [place] [address] Phone Care Team Providers Care Cooking Instructor Name Role Phone Anderson GILL, Maya Duke PP [phone] Christopher BLANCHARD, Kimberly Prajapati Unavailable Unavailable Reason [...] Provider REVISIT- Routine (OB) [facility] ([facility] 01/09[facility]2021 [facility] (OB) Visit 01/16/2021 10:00AM [facility], SOLE Barron MD REVISIT- Routine (OB) Visit 01/23/2021 10:00AM [facility], SOLE Barron MD REVISIT- Routine (OB) Visit 01/30/2021 10:00AM [facility], SOLE Barron MD REVISIT- Routine (OB) Visit 02/06/2021 10:00AM [facility], SOLE Barron MD REVISIT- Routine (OB) Visit 02/13/2021 10:00AM [facility], SOLE Barron MD REVISIT- Routine (OB) Visit 02/20/2021 11:45AM [facility], SOLE Barron MD REVISIT- Routine (OB) Visit 02/27/2021 10:00AM [facility], SOLE Barron MD REVISIT- Routine (OB) Visit 03/06/2021 10:00AM [facility], SOLE Barron MD REVISIT- Routine (OB) Visit 03/13/2021 10:00AM [facility], SOLE Barron MD REVISIT- Routine (OB) Visit 03/20/2021 10:00AM [facility], SOLE Barron MD REVISIT- Routine (OB) Visit 03/27/2021 10:00AM [facility], SOLE Barron MD Findings Encounter Date [...] or concerns sick visit with Cat Gutierrez [facility] 10/30/2018 Assessments Includes: Assessments for all patient encounters Findings Encounter Date Fracture of fifth cervical vertebral body telephone [...] surance provided today. 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 care with women's health, [facility] on health maintenance [Encounter for general adult medical examination with abnormal findings] ANNUAL PE-followup exam30 with Maya Barron MD 04/07/2019 Vaginal candidiasis sick visit with [facility] 02/11 Pharyngitis urgent visit with Bandar Cleveland PA-C 2018 Sprained ribs ; left sick visit with [facility] Strain of muscle and tendon of front wall of thorax si ck visit with [facility] 10/30/2018 Fracture of fifth cervical vertebral body No Fault with [facility] 03/04/2018 Late effects of accident No Fault with [facility] 0 03/04/2018 Instructions Instructions not [...] External Patch 12/01/2020 - 12/05/2020 Provider : Maay Barron MD Diagnosis: Chest pain, unspecif ied [...] Recorded Vital Signs Includes: Vital Signs from 12/20/2019 through 12/19/2020 Vital Name 12/14/2020 02:15P 12/05/2020 11:47A 11/28/2020 [...] Pain Level 6 Results Includes: Results from 12/20/2019 through 12/19/2020 LIPASE SERUM [facility] Ordered by Maya Barron MD on 12/16/2020 Collected: 12/16/2020 Reported: 12/16/2020 16:29 LIPASE 27 U/L (13 - 60) None Note: Responsible Observer: (ABIOLA) Reviewed by Maay Barron MD on 12/18; All test results are final unless otherwise noted. Reported Physicians [facility] Ordered by Maya Barron MD on 12/16/2020 Collected: 12/16/2020 Reported: 12/16/2020 16:29 Reported Physicians See Note None Note: Reported Physicians:Ordering: Sunshine ALONSOending: ALLYN PAPPASConsulting: Rubén BARRON To: Miguel Gonsalez To: ALLYN PAPPAS Reviewed by Maya Barron MD on 12/18; All test results are final unless otherwise noted. PT/PTT [facility] Ordered by Maya Barron MD on 12/16/2020 Collected: 12/16/2020 Reported: 12/16/2020 16:30 INR 1.07 (0.93 - 1.23) None Note: Responsible Observer: (ABIOLA) PROTIME 14.0 SECONDS (11.0 - 15.5) None Note: Responsible Observer: (ABIOLA) PTT 29.2 SECONDS (24.8 - 36.7) None Note: BLDo INR INTERPRETATIONBLDx Therapeutic range for Coumadin and related oral anticoagulants. - International Normalized Ratio (INR): 2.0 - 3.0 for Venous Thrombosis, Pulmonary Embolus, Tissue heart valves, Acute [place] Atrial Fibrillation, Valvular heart disease and recurrent Systemic Embolism. - International Normalized Ratio (INR): 2.5 - 3.5 for Mechanical Prosthetic valve.Responsible Observer: (DW) Reviewed by Maya Barron MD on 12/18; All test results are final unless otherwise noted. Reported Physicians [facility] Ordered by Maya Barron MD on 12/16/2020 Collected: 12/16/2020 Reported: 12/16/2020 16:30 Reported Physicians See Note None Note: Reported Physicians:Ordering: Sunshine ALONSOending: ALLYN PAPPASConsulting: Rubén BARRON To: Miguel Gonsalez To: ALLYN PAPPAS Reviewed by Maya Barron MD on 12/18; All test results are final unless otherwise noted. CBC W/AUTOMATED DIFF [facility] Ordered by Maya Barron MD [...] are final unless otherwise noted. Reported Physicians [facility] Ordered by Maya Barron MD on 12/16/2020 Collected: 12/16/2020 Reported: 12/16/2020 16:00 Reported Physicians See Note None Note: Reported Physicians:Ordering: Sunshine ALONSOending: ALLYN PAPPASConsulting: MAYA BARRONCopyifan To: Miguel Gonsalez To: ALLYN PAPPAS Reviewed by Maya Barron MD on 12/18; All test results are final unless otherwise noted. COMPREHENSIVE METABOLIC PANEL [facility] Ordered by Maya Barron [...] are final unless otherwise noted. Reported Physicians [facility] Ordered by Maya Barron MD on 12/16/2020 Collected: 12/16/2020 Reported: 12/16/2020 16:30 Reported Physicians See Note None Note: Reported Physicians:Ordering: Sunshine ALONSOending: ALLYN PAPPASConsulting: Rubén BARRON To: Miguel Gonsalez To: ALLYN PAPPAS Reviewed by Maya Barron MD on 12/18; All test results are final unless otherwise noted. TROPONIN T [facility] Ordered by Maya Barron MD on 12/16/2020 Collected: 12/16/2020 Reported: 12/16/2020 16:30 TROPONIN T <0.01 NG/ML (0.00 - 0.10) None Note: TROPONIN T0.1 ng/ml Recommended as the clinical threshold value forTroponin T.Responsible Observer: (DW) Reviewed by Maya Barron MD on 12/18; All test results are final unless otherwise noted. Reported Physicians [facility] Ordered by Maya Barron MD on 12/16/2020 Collected: 12/16/2020 Reported: 12/16/2020 16:30 Reported Physicians See Note None Note: Reported Physicians:Ordering: VENUS ALONSOAttending: ALLYN PAPPASConsulting: Rubén BARRON To: Miguel Gonsalez To: ALLYN PAPPAS Reviewed by aMya Barron MD on 12/18; All test results are final unless otherwise noted. TSH HIGHLY SENSITIVE [facility] Ordered by Maya Barron MD on 12/16/2020 Collected: 12/16/2020 Reported: 12/16/2020 17:28 TSH 1.41 uIU/mL (0.47 - 5.01) None Note: Responsible Observer: (DW) Reviewed by Maya Barron MD on 12/18; All test results are final unless otherwise noted. Reported Physicians [facility] Ordered by Maya Barron MD on 12/16/2020 Collected: 12/16/2020 Reported: 12/16/2020 17:28 Reported Physicians See Note None Note: Reported Physicians:Ordering: RAVI ALONSODEAttending: ALLYN PAPPASConsulting: Rubén BARRON To: Miguel Gonsalez To: ALLYN PAPPAS Reviewed by Maya Barron MD on 12/18; All test results are final unless otherwise noted. TSH [facility] Ordered by Maya Barron MD on 12/13/2020 Collected: 12/13/2020 Reported: 12/13/2020 19:02 TSH SerPl DL<=0.005 mIU/L-aCnc 1.02 MicroInternationalUnitsPerMilliLiter_[Arbitrary_Con (0.35-5. 50) N (Normal) Note: Responsible Observer: TSH TSH 600 .7055 (D) Reviewed by Maya Barron MD on 12/15; All test results are final unless otherwise noted. Reported Physicians [facility] Ordered by Maya Barron MD on 12/13/2020 Collected: 12/13/2020 Reported: 12/13/2020 19:02 Reported Physicians See Note None Note: Reported Physicians:Ordering: Conchis Omerending: Kevin Orozco To: Maya Barron Reviewed by Maya Barron MD on 12/15; All test results are final unless otherwise noted. CBC W AUTO DIFF [facility] Ordered by Maya Barron MD [...] Auto See Note (0-2) N (Normal) Note: [id number] Ob fire observer: IG% IG% 100.1375 (B) Hct VFr [...] results are final unless otherwise noted. PT/PTT [facility] Ordered by aMya Barron MD on 12/13/2020 Collected: 12/13/2020 Reported: [...] results are final unless otherwise noted. CMP [facility] Ordered by Maya Barron MD [...] are final unless otherwise noted. Reported Physicians [facility] Ordered by Maya Barron MD on 12/13/2020 Collected: 12/13/2020 Reported: 12/13/2020 19:02 Reported Physicians See Note None Note: Reported Physicians:Ordering: Conchis Omerending: Kevin Orozco To: Maya Barron Reviewed by Maya Barron MD on 12/15; All test results are final unless otherwise noted. TROPONIN [facility] Ordered by Maya Barron MD on 12/13/2020 Collected: 12/13/2020 Reported: 12/13/2020 19:02 Troponin I SerPl-mCnc Less Than 0.015 (0.00-0.09) N (Normal) Note: Less than 0.09 NG/ML Negative 0.10 - 0.77 NG/ML High Risk0.78 NG/ML or Greater PositiveThe WHO defined the cutoff (definition for diagnosis of MO)for this method as 0.78 ng/ml.Responsible Observer: Troponin I Troponin I 600.1101 (G) Reviewed by Maya Barron MD on 12/15; All test results are final unless otherwise noted. Reported Physicians [facility] Ordered by Maya Barron MD on 12/13/2020 Collected: 12/13/2020 Reported: 12/13/2020 19:02 Reported Physicians See Note None Note: Reported Physicians:Ordering: Conchis Omerending: Pir ErnestoetCopy To: Maya Barron Reviewed by Maya Barron MD on 12/15; All test results are final unless otherwise noted. ADD ON MICROSCOPIC [facility] Ordered by Maya Barron MD on 12/13/2020 Collected: 12/13/2020 Reported: 12/13/2020 18:32 ADD ON MICROSCOPIC See Note (0-5) None Note: NOTES OTHER/NOT INTERPRETED Bacteria UrnS Ql Micro MODERATE AMOUNT Bacteria UrnS Ql Micro MODERATE AMOUNT Bacteria UrnS Ql Micro L Bacteria UrnS Ql Micro Bacteria UrnS Ql Micro Bacteria UrnS Ql Micro Bacteria UrnS Ql Micro [id number] Bacteria UrnS Ql Micro Bacteria UrnS Ql [...] are final unless otherwise noted. Reported Physicians [facility] Ordered by Maya Barron MD on 12/13/2020 Collected: 12/13/2020 Reported: 12/13/2020 18:33 Reported Physicians See Note None Note: Reported Physicians:Ordering: Conchis Omerending: Kevin Orozco To: Maya Barron Reviewed by Maya Barron MD on 12/15; All test results are final unless otherwise noted. UA W/ CULTURE IF ABNORMAL [facility] Ordered by Maya Barron MD on 12/13/2020 Collected: 12/13/2020 Reported: 12/13/2020 18:32 Urobilinogen Ur Ql See Note (0.2-1 EU/dl) None Note: 0.2 EU/dl0.2 EU/[id number] E U/dlResponsible Observer: UROBILINOGEN UROBILINOGEN 300.4500 (C) RBC # Ur Strip NEGATIVE (NEGATIVE) None Note: Responsible Observer: BLOOD BLOOD 300.4652 (C) Prot Ur Ql Strip See Note (NEGATIVE) None Note: [id number] EResponsible Observer: PROTEIN PROTEIN 300.3750 (C) Ketones Ur Ql Strip See Note (NEGATIVE) None Note: [id number] EResponsible Observer: KETONE KETONE 300.3900 (C) Bilirub Ur Ql Strip.auto See Note (NEGATIVE) None Note: [id number] EResponsible Observer: BILIRUBIN BILIRUBIN 300.4550 (C) Glucose Ur Strip.auto-mCnc NEGATIVE (NEGATIVE) None Note: Responsible Observer: GLUCOSE GLUC OSE 300.3850 (C) Appearance Ur See Note (CLEAR) None Note: CLEARCLEARLCLEARResponsible Observ er: APPEARANCE APPEARANCE 300.3400 (A) Color Ur See Note None Note: YELLOWYELLOWLYELLOWResponsible Obs erver: COLOR COLOR 300.3330 (A) Leukocyte esterase Ur Ql Strip See Note (NEGATIVE) None Note: [id number]@DO MICR O!!!!A Culture has been added to this specimen per established criteriaResponsible Observer: LEUKOCYTES LEUKOCYTES 300.3576 (C) Nitrite Ur Ql Strip See Note (NEGATIVE) None Note: [id number] EResponsible Observer: NITRITE NITRITE 300.3652 (B) pH [...] are final unless otherwise noted. Urine culture [facility] Ordered by Maya Barron MD on 12/13/2020 Collected: 12/13/2020 Reported: 12/14/2020 13:24 Bacteria Ur Cult See Note None Note: NGNo growth.L1NG NOTES See Note None Note: @12/13/20 1832: Urine culture adde d. RFLXG = CULT.ADD. Reviewed by Maya Barron MD on 12/15; All test results are final unless otherwise noted. Reported Physicians [facility] Ordered by Maya Barron MD on 12/13/2020 Collected: 12/13/2020 Reported: 12/14/2020 13:24 Reported Physicians See Note None Note: Reported Physicians:Ordering: Conchis Omerending: Kevin Orozco To: Maya Barron Reviewed by Maya Barron MD on 12/15; All test results are final unless otherwise noted. TROPONIN T [facility] Ordered by Maya Barron MD on 12/09/2020 Collected: 12/09/2020 Reported: 12/09/2020 01:32 TROPONIN T <0.01 NG/ML (0.00 - 0.10) None Note: TROPONIN T0.1 ng/ml Recommended as the clinical threshold value forTroponin T.Responsible Observer: (AB) Reviewed by Maya Barron MD on 12/12; All test results are final unless otherwise noted. Reported Physicians [facility] Ordered by Maya Barron MD on 12/09/2020 Collected: 12/09/2020 Reported: 12/09/2020 01:32 Reported Physicians See Note None Note: Reported Physicians:Ordering: MARQUISE TOMLINSON CAttending: MARQUISE SOTOConsulting: Rubén BARRON To: Clare SOTO To: MARQUISE SOTO Reviewed by Maya Barron MD on 12/12; All test results are final unless otherwise noted. TROPONIN T [facility] Ordered by Maya Barron MD on 12/08/2020 Collected: 12/08/2020 Reported: 12/08/2020 22:36 TROPONIN T <0.01 NG/ML (0.00 - 0.10) None Note: TROPONIN T0.1 ng/ml Recommended as the clinical threshold value forTroponin T.Responsible Observer: (AB) Reviewed by Maya Barron MD on 12/12; All test results are final unless otherwise noted. Reported Physicians [facility] Ordered by Maya Barron MD on 12/08/2020 Collected: 12/08/2020 Reported: 12/08/2020 22:36 Reported Physicians See Note None Note: Reported Physicians:Ordering: MARQUISE TOMLINSON CAttending: MARQUISE SOTOConsulting: Rubén BARRON To: MARQUISE SOTOCopyifan To: MARQUISE SOTO Reviewed by Maya Barron MD on 12/12; All test results are final unless otherwise noted. COMPREHENSIVE METABOLIC PANEL [facility] Ordered by Maya Barron [...] are final unless otherwise noted. Reported Physicians [facility] Ordered by Maya Barron MD on 12/08/2020 Collected: 12/08/2020 Reported: 12/08/2020 22:36 Reported Physicians See Note None Note: Reported Physicians:Ordering: MARQUISE TOMLINSON: AMRQUISE SOTOConsulting: Rubén BARRON To: Clare SOTO To: MARQUISE SOTO Reviewed by Maya Barron MD on 12/12; All test results are final unless otherwise noted. LIPASE SERUM [facility] Ordered by Maya Barron MD on 12/08/2020 Collected: 12/08/2020 Reported: 12/08/2020 22:32 LIPASE 33 U/L (13 - 60) None Note: Responsible Observer: (AB) Reviewed by Maya Barron MD on 12/12; All test results are final unless otherwise noted. Reported Physicians [facility] Ordered by Maya Barron MD on 12/08/2020 Collected: 12/08/2020 Reported: 12/08/2020 22:32 Reported Physicians See Note None Note: Reported Physicians:Ordering: MARQUISE TOMLINSON CAttending: MARQUISE SOTOConopaling: Rubén BARRON To: Clare SOTO To: MARQUISE SOTO Reviewed by Maya Barron MD on 12/12; All test results are final unless otherwise noted. CBC W AUTO DIFF [facility] Ordered by Maya Barron MD [...] Auto See Note (0-2) N (Normal) Note: [id number] Ob fire observer: IG% IG% 100.1375 (B) Hct VFr [...] results are final unless otherwise noted. D-DIMER [facility] Ordered by Maya Barron MD [...] are final unless otherwise noted. Reported Physicians [facility] Ordered by Maya Barron MD on 12/01/2020 Collected: 12/01/2020 Reported: 12/01/2020 18:19 Reported Physicians See Note None Note: Reported Physicians:Ordering: Choco KaurAttending: Adam Pardo To: Maya Barron Reviewed by Maya Barron MD on 12/04; All test results are final unless otherwise noted. TROPONIN [facility] Ordered by Maya Barron MD on 12/01/2020 Collected: 12/01/2020 Reported: 12/01/2020 18:18 Troponin I SerPl-mCnc Less Than 0.015 (0.00-0.09) N (Normal) Note: Less than 0.09 NG/ML Negative 0.10 - 0.77 NG/ML High Risk0.78 NG/ML or Greater PositiveThe WHO defined the cutoff (definition for diagnosis of MO)for this method as 0.78 ng/ml.Responsible Observer: Troponin I Troponin I 600.1101 (G) Reviewed by Maya Barron MD on 12/04; All test results are final unless otherwise noted. Reported Physicians [facility] Ordered by Maya Barron MD on 12/01/2020 Collected: 12/01/2020 Reported: 12/01/2020 18:19 Reported Physicians See Note None Note: Reported Physicians:Ordering: Sara Kaurending: Adam Pardo To: Maya Barron Reviewed by Maya Barron MD on 12/04; All test results are final unless otherwise noted. Cepheid CT/NG RT-PCR [facility] Ordered by Maya Barron MD [...] may result in failure to detect the targetorganisms.35375-2C trach DNA Vag Ql ТАТЬЯНА+probeLNCHLAMNC. trachomatis NOT [id number]. trachomatis NOT [id number] gonorrhoea rRNA Vag Ql ТАТЬЯНА+probeLNNEIGNN.gonorrhoeae NOT [id number].gonorrhoeae NOT DETECTED Reviewed by Maya Barron MD on 11/29; All test results are final unless otherwise noted. Reported Physicians [facility] Ordered by Maya Barron MD on 11/29/2020 Collected: 11/29/2020 Reported: 11/29/2020 07:03 Reported Physicians See Note None Note: Reported Physicians:Ordering: Estela SamuelAttending: Vianey Up To: Maya Barron Reviewed by Maya Barron MD on 11/29; All test results are final unless otherwise noted. AFFIRM [facility] Ordered by Maya Barron MD on 11/29/2020 Collected: 11/29/2020 Reported: 11/30/2020 13:21 Dionna species DNA Probe NOT DETECTED (NOT DETECTED) None Note: THIS TEST WAS PERFORMED AT:[facility] [id number] ONEILLesponsible Observer: Dionna DNA Dionna species DNA Probe [id number] 913.2350 ([facility]) Gardnerella DNA Probe DETECTED (NOT DETECTED) H (High) Note: Increased levels of G. vaginalis m ay not be significantin the absence of signs and symptoms of bacterialvaginosis.Responsible Observer: Gardnerella DNA Gardnerella DNA Probe [id number] 913.2345 ([facility]) Trichomonas DNA Probe NOT DETECTED (NOT DETECTED) None Note: Responsible Observer: Trichomonas DNA Trichomonas DNA Probe [id number] 913.2340 ([facility]) Reviewed by Maya Barron MD on 12/01; All test results are final unless otherwise noted. Reported Physicians [facility] Ordered by Maya Barron MD on 11/29/2020 Collected: 11/29/2020 Reported: 11/30/2020 13:21 Reported Physicians See Note None Note: Reported Physicians:Ordering: Estela SamuelAttending: Vianey Up To: Maya Barron Reviewed by Maya Barron MD on 12/01; All test results are final unless otherwise noted. UA W/ CULTURE IF ABNORMAL [facility] Ordered by Maya Barron MD on 11/29/2020 Collected: 11/29/2020 Reported: 11/29/2020 04:49 Urobilinogen Ur Ql See Note (0.2-1 EU/dl) None Note: 0.2 EU/dl0.2 EU/[id number] E U/dlResponsible Observer: UROBILINOGEN UROBILINOGEN 300.4500 (C) RBC # Ur Strip NEGATIVE (NEGATIVE) None Note: Responsible Observer: BLOOD BLOOD 300.4652 (C) Prot Ur Ql Strip See Note (NEGATIVE) None Note: [id number] EResponsible Observer: PROTEIN PROTEIN 300.3750 (C) Ketones Ur Ql Strip See Note (NEGATIVE) None Note: [id number] EResponsible Observer: KETONE KETONE 300.3900 (C) Bilirub Ur Ql Strip.auto See Note (NEGATIVE) None Note: [id number] EResponsible Observer: BILIRUBIN BILIRUBIN 300.4550 (C) Glucose Ur Strip.auto-mCnc NEGATIVE (NEGATIVE) None Note: Responsible Observer: GLUCOSE GLUC OSE 300.3850 (C) Appearance Ur See Note (CLEAR) None Note: CLEARCLEARLCLEARResponsible Observ er: APPEARANCE APPEARANCE 300.3400 (A) Color Ur See Note None Note: YELLOWYELLOWLYELLOWResponsible Obs erver: COLOR COLOR 300.3330 (A) Leukocyte esterase Ur Ql Strip See Note (NEGATIVE) None Note: [id number]@DO MICR O!!!!A Culture has been added to this specimen per established criteriaResponsible Observer: LEUKOCYTES LEUKOCYTES 300.3576 (C) Nitrite Ur Ql Strip See Note (NEGATIVE) None Note: [id number] EResponsible Observer: NITRITE NITRITE 300.3652 (B) pH [...] Reason for ordering culture: Abnor mal findings UA@05/19/21 0401: UA W/ MICRO added. RFLXG = UMIC CIF.Method of Collection:: Voided Reviewed by Maya Barron MD on 12/01; All test results are final unless otherwise noted. Urine culture [facility] Ordered by Maya Barron MD on 11/29/2020 Collected: 11/29/2020 Reported: 11/30/2020 07:23 Bacteria Ur Cult See Note None Note: NGNo growth.L1NG NOTES See Note None Note: @11/29/20 0450: Urine culture adde d. RFLXG = CULT.ADD. Reviewed by Maya Barron MD on 12/01; All test results are final unless otherwise noted. Reported Physicians [facility] Ordered by Maya Barron MD on 11/29/2020 Collected: 11/29/2020 Reported: 11/30/2020 07:23 Reported Physicians See Note None Note: Reported Physicians:Ordering: Gideon Samuelending: Vianey Up To: Maya Barron Reviewed by Maya Barron MD on 12/01; All test results are final unless otherwise noted. ADD ON MICROSCOPIC [facility] Ordered by Maya Barron MD [...] are final unless otherwise noted. Reported Physicians [facility] Ordered by Maya Barron MD on 11/29/2020 Collected: 11/29/2020 Reported: 11/29/2020 04:51 Reported Physicians See Note None Note: Reported Physicians:Ordering: Gideon Samuelending: Vianey Up To: Maya Barron Reviewed by Maya Barron MD on 11/29; All test results are final unless otherwise noted. TROPONIN [facility] Ordered by Maya Barron MD on 11/20/2020 Collected: 11/20/2020 Reported: 11/20/2020 20:04 Troponin I SerPl-mCnc Less Than 0.015 (0.00-0.09) N (Normal) Note: Less than 0.09 NG/ML Negative 0.10 - 0.77 NG/ML High Risk0.78 NG/ML or Greater PositiveThe WHO defined the cutoff (definition for diagnosis of MO)for this method as 0.78 ng/ml.Responsible Observer: Troponin I Troponin I 600.1101 (G) Reviewed by Maya Barron MD on 11/22; All test results are final unless otherwise noted. Reported Physicians [facility] Ordered by Maya Barron MD on 11/20/2020 Collected: 11/20/2020 Reported: 11/20/2020 20:05 Reported Physicians See Note None Note: Reported Physicians:Ordering: Les Vanegastending: Fady Raza To: Maya Barron Reviewed by Maya Barron MD on 11/22; All test results are final unless otherwise noted. Cepheid SARS/FLU/RSV RT-PCR [facility] Ordered by Maya Barron MD [...] by FDA under an EUA for use [facility] [place] [id number]-jlg CoV RNA Resp Ql ТАТЬЯНА+oylgkNVJVOOROUKX-YLQ-8 NOT [id number] NOT [id number] RNA Resp Ql ТАТЬЯНА+probeLNNFLUAInfluenza A Not Det [id number] A Not [id number] RNA Resp Ql ТАТЬЯНА+probeLNNINBInfluenza B Not [id number] B Not Xgwtbsyh11248- 2RSV RNA Resp Ql ТАТЬЯНА+probeLNNRSVRSV Not [id number] Not Detected Reviewed by Maya Barron MD on 11/20; All test results are final unless otherwise noted. Reported Physicians [facility] Ordered by Maya Barron MD on 11/18/2020 Collected: 11/18/2020 Reported: 11/18/2020 23:58 Reported Physicians See Note None Note: Reported Physicians:Ordering: Aj Snowending: Jos Castellanos To: Maya Barron Reviewed by Maya Barron MD on 11/20; All test results are final unless otherwise noted. URINE DRUG SCREEN -([facility]) [facility] Ordered by Maya Barron MD on 11/17/2020 Collected: 11/17/2020 Reported: 11/17/2020 14:19 PCP Ur Ql Scn>25 ng/mL See Note (Cutoff 25) None Note: [id number] E@Reenter manual test result: NEGATIVE@by Claudia Tello at 11/17/20 1414.Responsible Observer: PCP Urine Phencyclidine (PCP) Scrn 400.5120 (A) THC Ur Ql Scn>50 ng/mL See Note (Cutoff 50) None Note: [id number] EResponsible Observer: Marijuana (THC) Ur Marijuana (THC) Screen 400.5110 (A) Benzodiaz Ur Ql Scn See Note (Cutoff 150) None Note: [id number] E@Reenter manual test result: NEGATIVE@by Claudia Tello at 11/17/20 1418.Responsible Observer: Benzodiazepines Urine Benzodiazepines Screen 400.5170 (A) Opiates Ur Ql Scn See Note (Cutoff 100) None Note: [id number] E@Reenter manual test result: NEGATIVE@by Claudia Tello at 11/17/20 1418.Responsible Observer: Opiates Urine Opiates Screen 400.5150 (A) Tricyclics Ur Ql Scn See Note (Cutoff 300) None Note: [id number] E@Reenter manual test result: NEGATIVE@by Claudia Tello at 11/17/20 1418.Responsible Observer: TCA Ur Tricyclic Antidepressants 400.5180 (A) Cocaine Ur Ql Scn See Note (Cutoff 150) None Note: [id number] E@Reenter manual test result: NEGATIVE@by Claudia Tello at 11/17/20 1417.Responsible Observer: Cocaine Urine Cocaine Screen 400.5130 (A) Propoxyph+Nor Ur Ql Scn See Note (Cutoff 300) None Note: [id number] E@Reenter manual test result: NEGATIVE@by Claudia Tello at 11/17/20 1418.Responsible Observer: Propoxyphene Urine Propoxyphene Screen 400.5220 (A) Methadone Ur Ql Scn See Note (Cutoff 200) None Note: [id number] E@Reenter manual test result: NEGATIVE@by Claudia Tello at 11/17/20 1418.Responsible Observer: Methadone Urine Methadone Screen 400.5190 (A) Methamphet Ur Ql Scn See Note (Cutoff 500) None Note: [id number] E@Reenter manual test result: NEGATIVE@by Claudia Tello at 11/17/20 1417.Responsible Observer: Methamphetamine Urine Methamphetamines Screen 400.5140 (A) oxyCODONE Ur Ql Scn See Note (Cutoff 100) None Note: [id number] E@Reenter manual test result: NEGATIVE@by Claudia Tello at 11/17/20 1418.Responsible Observer: Oxycodone Urine Oxycodone Screen 400.5210 (A) Buprenorphine Ur Ql See Note (Cutoff 10) None Note: [id number] E@Reenter manual test result: NEGATIVE@by Claudia Tello at 11/17/20 1419.Responsible Observer: Buprenorphine Urine Buprenorphine Screen 400.5230 (A) Amphetamines Ur Ql Scn>500 ng/mL See Note (Cutoff 500) None Note: [id number] E@Reenter manual test result: NEGATIVE@by Claudia Tello at 11/17/20 1418.Responsible Observer: Amphetamines Urine Amphetamines Screen 400.5160 (A) Barbiturates Ur Ql Scn>200 ng/mL See Note (Cutoff 200) None Note: [id number] E@Reenter manual test result: NEGATIVE@by Claudia Tello at 11/17/20 1418.Responsible Observer: Barbiturates Urine Barbiturates 400.5200 (A) Reviewed by Maya Barron MD on 11/20; All test results are final unless otherwise noted. FREE T4 (LAB) [facility] Ordered by Maya Barron MD on 11/17/2020 Collected: 11/17/2020 Reported: 11/17/2020 14:34 T4 Free SerPl-mCnc 0.78 NanoGramsPerDeciLiter_[Mass_Concentration_Units] (0.89-1.76) L (Low) Note: Responsible Observer: FREE T4 Free Thyroxine 600.7005 (D) Reviewed by Maya Barron MD on 11/20; All test results are final unless otherwise noted. Reported Physicians [facility] Ordered by Maya Barron MD on 11/17/2020 Collected: 11/17/2020 Reported: 11/17/2020 14:34 Reported Physicians See Note None Note: Reported Physicians:Ordering: Maya AlvarengaAttending: Maya Barron Reviewed by Maya Barron MD on 11/20; All test results are final unless otherwise noted. TSH [facility] Ordered by Maya Barron MD on 11/17/2020 Collected: 11/17/2020 Reported: 11/17/2020 14:34 TSH SerPl DL<=0.005 mIU/L-aCnc 1.38 MicroInternationalUnitsPerMilliLiter_[Arbitrary_Con (0.35-5. 50) N (Normal) Note: Responsible Observer: TSH TSH 600 .7055 (D) Reviewed by Maya Barron MD on 11/20; All test results are final unless otherwise noted. Reported Physicians [facility] Ordered by Maya Barron MD on 11/17/2020 Collected: 11/17/2020 Reported: 11/17/2020 14:34 Reported Physicians See Note None Note: Reported Physicians:Ordering: Cara Alvarengaending: Maya Barron Reviewed by Maya Barron MD on 11/20; All test results are final unless otherwise noted. IRON [facility] Ordered by Maya Barron MD on 11/17/2020 Collected: 11/17/2020 Reported: 11/17/2020 14:34 Iron SerPl-mCnc 39 (50-170) L (Low) Note: Iron values may be falsely elevate d in serum samples frompatients treated with anticoagulants (e.g., hemodialysispatients)Responsible Observer: Iron Level Iron Level 400.9002 (A) Reviewed by Maya Barron MD on 11/20; All test results are final unless otherwise noted. Reported Physicians [facility] Ordered by Maya Barron MD on 11/17/2020 Collected: 11/17/2020 Reported: 11/17/2020 14:34 Reported Physicians See Note None Note: Reported Physicians:Ordering: Maya AlvarengaAttending: Maya Barron Reviewed by Maya Barron MD on 11/20; All test results are final unless otherwise noted. CBC W AUTO DIFF [facility] Ordered by Maya Barron MD [...] Auto See Note (0-2) N (Normal) Note: 0.60.7Y60656288246.6Responsible Ob fire observer: IG% IG% 100.1375 (B) Hct VFr [...] test results are final unless otherwise noted. [address] [facility] Ordered by Maya Barron MD [...] blood glucose control.* High risk of developing half-way complications such asretinopathy, nephropathy, neuropathy, cardiopathy, etc. [...] final unless otherwise noted. Vitamin D 25-OH [facility] Ordered by Maya Barron MD [...] VIT D, (D2,D3), LC/MS/MS is recommended: ordercode 19451 (patients >2yrs).See Note 1Note 1For additional information, please refer [email or web address]/faq/OXY893(This link is being provided for informational/educational purposes only.)THIS TEST WAS PERFORMED AT:[facility] [address]CLAUDY ONEILLesponsible Observer: Vitamin D 25-OH Vitamin D 25-Hydroxy [id number] 704.3908 ([employer]) Reviewed by Maya Barron MD on 11/20; All test results are final unless otherwise noted. Reported Physicians [facility] Ordered by Maya Barron MD on 11/17/2020 Collected: 11/17/2020 Reported: 11/18/2020 08:17 Reported Physicians See Note None Note: Reported Physicians:Ordering: Maya AlvarengaAttending: Maya Barron Reviewed by Maya Barron MD on 11/20; All test results are final unless otherwise noted. CBC W AUTO DIFF [facility] Ordered by Maya Barron MD [...] Auto See Note (0-2) N (Normal) Note: 0.30.2W99210018425.3Responsible Ob fire observer: IG% IG% 100.1375 (B) Hct VFr [...] results are final unless otherwise noted. D-DIMER [facility] Ordered by Maya Barron MD [...] are final unless otherwise noted. Reported Physicians [facility] Ordered by Maya Barron MD on 10/23/2020 Collected: 10/23/2020 Reported: 10/23/2020 01:22 Reported Physicians See Note None Note: Reported Physicians:Ordering: Yoli NapolesAttending: Charles Silva To: Maya Barron Reviewed by Maya Barron MD on 10/23; All test results are final unless otherwise noted. BHCG Quantitative [facility] Ordered by Maya Barron MD on 10/23/2020 Collected: 10/23/2020 Reported: 10/23/2020 01:21 B-HCG [facility] [address] MilliInternationalUnitsPerMilliLiter_[Arbitrary_Con (0-10) H (High) Note: @Instrument will [...] are final unless otherwise noted. Reported Physicians [facility] Ordered by Maya Barron MD on 10/23/2020 Collected: 10/23/2020 Reported: 10/23/2020 01:21 Reported Physicians See Note None Note: Reported Physicians:Ordering: Yoli NapolesAttending: Charles Silva To: Maya Barron Reviewed by Maya Barron MD on 10/23; All test results are final unless otherwise noted. TROPONIN [facility] Ordered by Maya Barron MD on 10/23/2020 Collected: 10/23/2020 Reported: 10/23/2020 01:03 Troponin I SerPl-mCnc Less Than 0.015 (0.00-0.09) N (Normal) Note: Less than 0.09 NG/ML Negative 0.10 - 0.77 NG/ML High Risk0.78 NG/ML or Greater PositiveThe WHO defined the cutoff (definition for diagnosis of MO)for this method as 0.78 ng/ml.Responsible Observer: Troponin I Troponin I 600.1101 (G) Reviewed by Maya Barron MD on 10/23; All test results are final unless otherwise noted. Reported Physicians [facility] Ordered by Maya Barron MD on 10/23/2020 Collected: 10/23/2020 Reported: 10/23/2020 01:03 Reported Physicians See Note None Note: Reported Physicians:Ordering: Yoli NapolesAttending: Charles Silva To: Maya Barron Reviewed by Maya Barron MD on 10/23; All test results are final unless otherwise noted. FREE T4 (LAB) [facility] Ordered by Maya Barron MD on 10/21/2020 Collected: 10/21/2020 Reported: 10/21/2020 15:17 T4 Free SerPl-mCnc 0.97 NanoGramsPerDeciLiter_[Mass_Concentration_Units] (0.89-1.76) N (Normal) Note: Responsible Observer: FREE T4 Free Thyroxine 600.7005 (D) Reviewed by Maya Barron MD on 10/23; All test results are final unless otherwise noted. Reported Physicians [facility] Ordered by Maya Barron MD on 10/21/2020 Collected: 10/21/2020 Reported: 10/21/2020 15:17 Reported Physicians See Note None Note: Reported Physicians:Ordering: Choco KaurAttending: Choco PardoCopyifan To: Maya Barron Reviewed by Maya Barron MD on 10/23; All test results are final unless otherwise noted. TSH [facility] Ordered by Maya Barron MD on 10/21/2020 Collected: 10/21/2020 Reported: 10/21/2020 15:17 TSH SerPl DL<=0.005 mIU/L-aCnc 1.40 MicroInternationalUnitsPerMilliLiter_[Arbitrary_Con (0.35-5. 50) N (Normal) Note: Responsible Observer: TSH TSH 600 .7055 (D) Reviewed by Maya Barron MD on 10/23; All test results are final unless otherwise noted. Reported Physicians [facility] Ordered by Maya Barron MD on 10/21/2020 Collected: 10/21/2020 Reported: 10/21/2020 15:17 Reported Physicians See Note None Note: Reported Physicians:Ordering: Choco KaurAttending: Adam Pardo To: Maya Barron Reviewed by Maya Barron MD on 10/23; All test results are final unless otherwise noted. UA W/ CULTURE IF ABNORMAL [facility] Ordered by Maya Barron MD on 10/19/2020 Collected: 10/19/2020 Reported: 10/19/2020 16:31 Urobilinogen Ur Ql See Note (0.2-1 EU/dl) None Note: 0.2 EU/dl0.2 EU/[id number] E U/dlResponsible Observer: UROBILINOGEN UROBILINOGEN 300.4500 (C) RBC # Ur Strip NEGATIVE (NEGATIVE) None Note: Responsible Observer: BLOOD BLOOD 300.4652 (C) Prot Ur Ql Strip See Note (NEGATIVE) None Note: [id number] EResponsible Observer: PROTEIN PROTEIN 300.3750 (C) Ketones Ur Ql Strip See Note (NEGATIVE) None Note: [id number] EResponsible Observer: KETONE KETONE 300.3900 (C) Bilirub Ur Ql Strip.auto See Note (NEGATIVE) None Note: [id number] EResponsible Observer: BILIRUBIN BILIRUBIN 300.4550 (C) Glucose Ur Strip.auto-mCnc 100 mg/dl (NEGATIVE) None Note: Responsible Observer: GLUCOSE GLUC OSE 300.3850 (C) Appearance Ur See Note (CLEAR) None Note: CLEARCLEARLCLEARResponsible Observ er: APPEARANCE APPEARANCE 300.3400 (A) Color Ur See Note None Note: YELLOWYELLOWLYELLOWResponsible Obs erver: COLOR COLOR 300.3330 (A) Leukocyte esterase Ur Ql Strip See Note (NEGATIVE) None Note: [id number] EResponsible Observer: LEUKOCYTES LEUKOCYTES 300.3576 (C) Nitrite Ur Ql Strip See Note (NEGATIVE) None Note: [id number] EResponsible Observer: NITRITE NITRITE 300.3652 (B) pH [...] are final unless otherwise noted. Reported Physicians [facility] Ordered by Maya Barron MD on 10/19/2020 Collected: 10/19/2020 Reported: 10/19/2020 16:31 Reported Physicians See Note None Note: Reported Physicians:Ordering: Les Vanegasding: Fady Raza To: Maya Barron Reviewed by Maya Barron MD on 10/20; All test results are final unless otherwise noted. URINE DRUG SCREEN -([facility]) [facility] Ordered by Maya Barron MD on 10/19/2020 Collected: 10/19/2020 Reported: 10/19/2020 16:40 PCP Ur Ql Scn>25 ng/mL See Note (Cutoff 25) None Note: [id number] E@Reenter manual test result: NEGATIVE@by Jia Lentz at 10/19/20 1639.Responsible Observer: PCP Urine Phencyclidine (PCP) Scrn 400.5120 (A) THC Ur Ql Scn>50 ng/mL See Note (Cutoff 50) None Note: [id number] EResponsible Observer: Marijuana (THC) Ur Marijuana (THC) Screen 400.5110 (A) Benzodiaz Ur Ql Scn See Note (Cutoff 150) None Note: [id number] E@Reenter manual test result: NEGATIVE@by Jia Lentz at 10/19/20 1640.Responsible Observer: Benzodiazepines Urine Benzodiazepines Screen 400.5170 (A) Opiates Ur Ql Scn See Note (Cutoff 100) None Note: [id number] E@Reenter manual test result: NEGATIVE@by Jia Lentz at 10/19/20 1640.Responsible Observer: Opiates Urine Opiates Screen 400.5150 (A) Tricyclics Ur Ql Scn See Note (Cutoff 300) None Note: [id number] E@Reenter manual test result: NEGATIVE@by Jia Lentz at 10/19/20 1640.Responsible Observer: TCA Ur Tricyclic Antidepressants 400.5180 (A) Cocaine Ur Ql Scn See Note (Cutoff 150) None Note: [id number] E@Reenter manual test result: NEGATIVE@by Jia Lentz at 10/19/20 1640.Responsible Observer: Cocaine Urine Cocaine Screen 400.5130 (A) Propoxyph+Nor Ur Ql Scn See Note (Cutoff 300) None Note: [id number] E@Reenter manual test result: NEGATIVE@by Jia Lentz at 10/19/20 1640.Responsible Observer: Propoxyphene Urine Propoxyphene Screen 400.5220 (A) Methadone Ur Ql Scn See Note (Cutoff 200) None Note: [id number] E@Reenter manual test result: NEGATIVE@by Jia Lentz at 10/19/20 1640.Responsible Observer: Methadone Urine Methadone Screen 400.5190 (A) Methamphet Ur Ql Scn See Note (Cutoff 500) None Note: [id number] E@Reenter manual test result: NEGATIVE@by Jia Lentz at 10/19/20 1640.Responsible Observer: Methamphetamine Urine Methamphetamines Screen 400.5140 (A) oxyCODONE Ur Ql Scn See Note (Cutoff 100) None Note: [id number] E@Reenter manual test result: NEGATIVE@by Jia Lentz at 10/19/20 1640.Responsible Observer: Oxycodone Urine Oxycodone Screen 400.5210 (A) Buprenorphine Ur Ql See Note (Cutoff 10) None Note: [id number] E@Reenter manual test result: NEGATIVE@by Jia Lentz at 10/19/20 1640.Responsible Observer: Buprenorphine Urine Buprenorphine Screen 400.5230 (A) Amphetamines Ur Ql Scn>500 ng/mL See Note (Cutoff 500) None Note: [id number] E@Reenter manual test result: NEGATIVE@by Jia Lentz at 10/19/20 1640.Responsible Observer: Amphetamines Urine Amphetamines Screen 400.5160 (A) Barbiturates Ur Ql Scn>200 ng/mL See Note (Cutoff 200) None Note: [id number] E@Reenter manual test result: NEGATIVE@by Jia Lentz at 10/19/20 1640.Responsible Observer: Barbiturates Urine Barbiturates 400.5200 (A) Reviewed by Maya Barron MD on 10/20; All test results are final unless otherwise noted. Reported Physicians [facility] Ordered by Maya Barron MD on 10/19/2020 Collected: 10/19/2020 Reported: 10/19/2020 16:40 Reported Physicians See Note None Note: Reported Physicians:Ordering: Les Vanegas AAttending: Fady Raza To: Maya Barron Reviewed by Maya Barron MD on 10/20; All test results are final unless otherwise noted. CRP, C-REACTIVE PROTEIN [facility] Ordered by Maya Barron MD on 10/19/2020 Collected: 10/19/2020 Reported: 10/19/2020 16:08 CRP SerPl-mCnc 7.5 MilliGramsPerLiter_[Mass_Concentration_Units] (0.0-5.0) H (High) Note: Responsible Observer: CRP C-Reacti ve Protein 401.4355 (H) Reviewed by Maya Barron MD on 10/20; All test results are final unless otherwise noted. SED RATE [facility] Ordered by Maya Barron MD on 10/19/2020 Collected: 10/19/2020 Reported: 10/19/2020 16:32 ESR Bld Qn Westrgrn 22 (0-20) H (High) Note: @Reenter manual test result: 22@by Jia Lentz at 10/19/20 1632.Responsible Observer: SED RATE SED RATE 100.6400 (B) Reviewed by Maya Barron MD on 10/20; All test results are final unless otherwise noted. Reported Physicians [facility] Ordered by Maya Barron MD on 10/19/2020 Collected: 10/19/2020 Reported: 10/19/2020 16:33 Reported Physicians See Note None Note: Reported Physicians:Ordering: Les Vanegasding: Fady Raza To: Maya Barron Reviewed by Maya Barron MD on 10/20; All test results are final unless otherwise noted. CMP [facility] Ordered by Maya Barron MD [...] unless otherwise noted. CBC W AUTO DIFF [facility] Ordered by Maya Barron MD [...] Auto See Note (0-2) N (Normal) Note: 0.30.5M98948456785.3Responsible Ob fire observer: IG% IG% 100.1375 (B) Hct VFr [...] are final unless otherwise noted. Reported Physicians [facility] Ordered by Maya Barron MD on 10/19/2020 Collected: 10/19/2020 Reported: 10/19/2020 16:33 Reported Physicians See Note None Note: Reported Physicians:Ordering: Les Vanegasding: Fady aRza To: Maya Barron Reviewed by Maya Barron MD on 10/20; All test results are final unless otherwise noted. TROPONIN [facility] Ordered by Maya Barron MD on 10/19/2020 Collected: 10/19/2020 Reported: 10/19/2020 16:10 Troponin I SerPl-mCnc Less Than 0.015 (0.00-0.09) N (Normal) Note: Less than 0.09 NG/ML Negative 0.10 - 0.77 NG/ML High Risk0.78 NG/ML or Greater PositiveThe WHO defined the cutoff (definition for diagnosis of MO)for this method as 0.78 ng/ml.Responsible Observer: Troponin I Troponin I 600.1101 (G) Reviewed by Maya Barron MD on 10/20; All test results are final unless otherwise noted. Reported Physicians [facility] Ordered by Maya Barron MD on 10/19/2020 Collected: 10/19/2020 Reported: 10/19/2020 16:10 Reported Physicians See Note None Note: Reported Physicians:Ordering: Les Vanegas: Fady Raza To: Maya Barron Reviewed by Maya Barron MD on 10/20; All test results are final unless otherwise noted. TSH w/ reflex to Free T4 [facility] Ordered by Maya Barron MD on 10/19/2020 Collected: 10/19/2020 Reported: 10/19/2020 16:08 TSH SerPl DL<=0.005 mIU/L-aCnc 1.66 MicroInternationalUnitsPerMilliLiter_[Arbitrary_Con (0.35-5. 50) N (Normal) Note: Responsible Observer: TSH TSH 600 .7060 (D) Reviewed by Maya Barron MD on 10/20; All test results are final unless otherwise noted. Reported Physicians [facility] Ordered by Maya Barron MD on 10/19/2020 Collected: 10/19/2020 Reported: 10/19/2020 16:08 Reported Physicians See Note None Note: Reported Physicians:Ordering: Les Vanegas: Fady Raza To: Maya Barron Reviewed by Maya Barron MD on 10/20; All test results are final unless otherwise noted. PT/PTT [facility] Ordered by Maya Barron MD [...] are final unless otherwise noted. Reported Physicians [facility] Ordered by Maya Barron MD on 10/08/2020 Collected: 10/08/2020 Reported: 10/08/2020 03:22 Reported Physicians See Note None Note: Reported Physicians:Ordering: Sana Recinosending: Jasper AnnhCopy To: Maya Barron Reviewed by Maya Barron MD on 10/09; All test results are final unless otherwise noted. CBC W AUTO DIFF [facility] Ordered by Maya Barron MD [...] Auto See Note (0-2) N (Normal) Note: 0.10.8Q79036591565.1Responsible Ob fire observer: IG% IG% 100.1375 (B) Hct VFr [...] results are final unless otherwise noted. MAGNESIUM [facility] Ordered by Maya Barron MD on 10/08/2020 Collected: 10/08/2020 Reported: 10/08/2020 03:17 Magnesium SerPl-mCnc 1.8 MilliGramsPerDeciLiter_[Mass_Concentration_Units] (1.3-2.7) N (Normal) Note: Responsible Observer: Magnesium Ma gnesium 400.3300 (G) Reviewed by Maya Barron MD on 10/09; All test results are final unless otherwise noted. D-DIMER [facility] Ordered by Maya Barron MD [...] are final unless otherwise noted. Reported Physicians [facility] Ordered by Maya Barron MD on 10/08/2020 Collected: 10/08/2020 Reported: 10/08/2020 03:27 Reported Physicians See Note None Note: Reported Physicians:Ordering: Sana Recinosending: Jasper AnnhCopy To: Maya Barron Reviewed by Maya Barron MD on 10/09; All test results are final unless otherwise noted. [facility] Ordered by Maya Barron [...] are final unless otherwise noted. Reported Physicians [facility] Ordered by Maya Barron MD on 10/08/2020 Collected: 10/08/2020 Reported: 10/08/2020 03:21 Reported Physicians See Note None Note: Reported Physicians:Ordering: Sana Recinosending: Sammie Ann To: Maya Barron Reviewed by Maya Barron MD on 10/09; All test results are final unless otherwise noted. CBC W AUTO DIFF [facility] Ordered by Maya Barron MD [...] Auto See Note (0-2) N (Normal) Note: [id number] Ob fire observer: IG% IG% 100.1375 (B) Hct VFr [...] are final unless otherwise noted. Reported Physicians [facility] Ordered by Maya Barron MD on 10/04/2020 Collected: 10/04/2020 Reported: 10/04/2020 17:42 Reported Physicians See Note None Note: Reported Physicians:Ordering: Les Vanegas: Fady Raza To: Maya Barron Reviewed by Maya Barron MD on 10/09; All test results are final unless otherwise noted. SED RATE [facility] Ordered by Maya Barron MD on 10/04/2020 Collected: 10/04/2020 Reported: 10/04/2020 18:05 ESR Bld Qn Westrgrn 16 (0-20) N (Normal) Note: @Reenter manual test result: 16@by Jia Lentz at 10/04/20 1805.Responsible Observer: SED RATE SED RATE 100.6400 (B) Reviewed by Maya Barrno MD on 10/09; All test results are final unless otherwise noted. Reported Physicians [facility] Ordered by Maya Barron MD on 10/04/2020 Collected: 10/04/2020 Reported: 10/04/2020 18:06 Reported Physicians See Note None Note: Reported Physicians:Ordering: Les Vanegas: Fady Raza To: Maya Barron Reviewed by Maya Barron MD on 10/09; All test results are final unless otherwise noted. TSH w/ reflex to Free T4 [facility] Ordered by Maya Barron MD on 10/04/2020 Collected: 10/04/2020 Reported: 10/04/2020 17:42 TSH SerPl DL<=0.005 mIU/L-aCnc 1.92 MicroInternationalUnitsPerMilliLiter_[Arbitrary_Con (0.35-5. 50) N (Normal) Note: Responsible Observer: TSH TSH 600 .7060 (D) Reviewed by Maya Barron MD on 10/09; All test results are final unless otherwise noted. Reported Physicians [facility] Ordered by Maya Barron MD on 10/04/2020 Collected: 10/04/2020 Reported: 10/04/2020 17:42 Reported Physicians See Note None Note: Reported Physicians:Ordering: Les Vanegas: Fady Raza To: Maya Barron Reviewed by Maya Barron MD on 10/09; All test results are final unless otherwise noted. TROPONIN [facility] Ordered by Maya Barron MD on 10/04/2020 Collected: 10/04/2020 Reported: 10/04/2020 17:35 Troponin I SerPl-mCnc Less Than 0.015 (0.00-0.09) N (Normal) Note: Less than 0.09 NG/ML Negative 0.10 - 0.77 NG/ML High Risk0.78 NG/ML or Greater PositiveThe WHO defined the cutoff (definition for diagnosis of [place])for this method as 0.78 ng/ml.Responsible Observer: Troponin I Troponin I 600.1101 (G) Reviewed by Maya Barron MD on 10/09; All test results are final unless otherwise noted. Reported Physicians [facility] Ordered by Maya Barron MD on 10/04/2020 Collected: 10/04/2020 Reported: 10/04/2020 17:35 Reported Physicians See Note None Note: Reported Physicians:Ordering: Les Vanegas: Fady Raza To: Maya Barron Reviewed by Maya Barron MD on 10/09; All test results are final unless otherwise noted. FREE T4 (LAB) [facility] Ordered by Maya Barron MD on 10/03/2020 Collected: 10/03/2020 Reported: 10/03/2020 20:08 T4 Free SerPl-mCnc 0.97 NanoGramsPerDeciLiter_[Mass_Concentration_Units] (0.89-1.76) N (Normal) Note: Responsible Observer: FREE T4 Free Thyroxine 600.7005 (D) Reviewed by Maya Barron MD on 10/04; All test results are final unless otherwise noted. Reported Physicians [facility] Ordered by Maya Barron MD on 10/03/2020 Collected: 10/03/2020 Reported: 10/03/2020 20:08 Reported Physicians See Note None Note: Reported Physicians:Ordering: Yoli NapolesAttending: Charles Silva To: Maya Barron Reviewed by Maya Barron MD on 10/04; All test results are final unless otherwise noted. CBC W AUTO DIFF [facility] Ordered by Maya Barron MD [...] Auto See Note (0-2) N (Normal) Note: 0.40.3S21529970770.4Responsible Ob fire observer: IG% IG% 100.1375 (B) Hct VFr [...] are final unless otherwise noted. Reported Physicians [facility] Ordered by Maya Barron MD on 10/03/2020 Collected: 10/03/2020 Reported: 10/03/2020 20:03 Reported Physicians See Note None Note: Reported Physicians:Ordering: Brook yeung, PatAttending: Yoli SilvaCopy To: Maya Barron Reviewed by Maya Barron MD on 10/04; All test results are final unless otherwise noted. BHCG Quantitative [facility] Ordered by Maya Barron MD on 10/03/2020 Collected: 10/03/2020 Reported: 10/03/2020 20:23 B-HCG [facility] [id number] MilliInternationalUnitsPerMilliLiter_[Arbitrary_Con (0-10) H (High) Note: @Instrument will [...] are final unless otherwise noted. Reported Physicians [facility] Ordered by Maya Barron MD on 10/03/2020 Collected: 10/03/2020 Reported: 10/03/2020 20:23 Reported Physicians See Note None Note: Reported Physicians:Ordering: Brook yeung, YoliAttending: Charles Silva To: Maya Barron Reviewed by Maya Barron MD on 10/04; All test results are final unless otherwise noted. TROPONIN [facility] Ordered by Maya Barron MD on 10/03/2020 Collected: 10/03/2020 Reported: 10/03/2020 20:07 Troponin I SerPl-mCnc Less Than 0.015 (0.00-0.09) N (Normal) Note: Less than 0.09 NG/ML Negative 0.10 - 0.77 NG/ML High Risk0.78 NG/ML or Greater PositiveThe WHO defined the cutoff (definition for diagnosis of MO)for this method as 0.78 ng/ml.Responsible Observer: Troponin I Troponin I 600.1101 (G) Reviewed by Maya aBrron MD on 10/04; All test results are final unless otherwise noted. Reported Physicians [facility] Ordered by Maya Barron MD on 10/03/2020 Collected: 10/03/2020 Reported: 10/03/2020 20:07 Reported Physicians See Note None Note: Reported Physicians:Ordering: Yoli NapolesAttending: Charles Silva To: Maya Barron Reviewed by Maya Barron MD on 10/04; All test results are final unless otherwise noted. MANUAL DIFF [facility] Ordered by Maya Barron MD [...] are final unless otherwise noted. Reported Physicians [facility] Ordered by Maya Barron MD on 10/03/2020 Collected: 10/03/2020 Reported: 10/03/2020 19:56 Reported Physicians See Note None Note: Reported Physicians:Ordering: Yoli NapolesAttending: Charles Silva To: Maya Barron Reviewed by Maya Barron MD on 10/04; All test results are final unless otherwise noted. UA W/ CULTURE IF ABNORMAL [facility] Ordered by Maya Barron MD on 10/03/2020 Collected: 10/03/2020 Reported: 10/03/2020 19:52 Urobilinogen Ur Ql See Note (0.2-1 EU/dl) None Note: 0.2 EU/dl0.2 EU/[id number] E U/dlResponsible Observer: UROBILINOGEN UROBILINOGEN 300.4500 (C) RBC # Ur Strip NEGATIVE (NEGATIVE) None Note: Responsible Observer: BLOOD BLOOD 300.4652 (C) Prot Ur Ql Strip See Note (NEGATIVE) None Note: [id number] EResponsible Observer: PROTEIN PROTEIN 300.3750 (C) Ketones Ur Ql Strip See Note (NEGATIVE) None Note: [id number] EResponsible Observer: KETONE KETONE 300.3900 (C) Bilirub Ur Ql Strip.auto See Note (NEGATIVE) None Note: [id number] EResponsible Observer: BILIRUBIN BILIRUBIN 300.4550 (C) Glucose Ur Strip.auto-mCnc NEGATIVE (NEGATIVE) None Note: Responsible Observer: GLUCOSE GLUC OSE 300.3850 (C) Appearance Ur See Note (CLEAR) None Note: CLEARCLEARLCLEARResponsible Observ er: APPEARANCE APPEARANCE 300.3400 (A) Color Ur See Note None Note: YELLOWYELLOWLYELLOWResponsible Obs erver: COLOR COLOR 300.3330 (A) Leukocyte esterase Ur Ql Strip See Note (NEGATIVE) None Note: [id number]@DO MICR O!!!!A Culture has been added to this specimen per established criteriaResponsible Observer: LEUKOCYTES LEUKOCYTES 300.3576 (C) Nitrite Ur Ql Strip See Note (NEGATIVE) None Note: [id number] EResponsible Observer: NITRITE NITRITE 300.3652 (B) pH [...] are final unless otherwise noted. Urine culture [facility] Ordered by Maya Barron MD on 10/03/2020 Collected: 10/03/2020 Reported: 10/04/2020 13:10 Bacteria Ur Cult See Note None Note: NGNo growth.L1NG NOTES See Note None Note: @10/03/201951: Urine culture adde d. RFLXG = CULT.ADD. Reviewed by Maya Barron MD on 10/04; All test results are final unless otherwise noted. Reported Physicians [facility] Ordered by Maya Barron MD on 10/03/2020 Collected: 10/03/2020 Reported: 10/04/2020 13:10 Reported Physicians See Note None Note: Reported Physicians:Ordering: Cliff Napolesending: Charles Silva To: Maya Barron Reviewed by Maya Barron MD on 10/04; All test results are final unless otherwise noted. ADD ON MICROSCOPIC [facility] Ordered by Maya Barron MD on 10/03/2020 Collected: 10/03/2020 Reported: 10/03/2020 19:52 ADD ON MICROSCOPIC See Note (0-5) None Note: NOTES OTHER/NOT INTERPRETED Bacteria UrnS Ql Micro SMALL AMOUNT Bacteria UrnS Ql Micro SMALL AMOUNT Bacteria UrnS Ql Micro L Bacteria UrnS Ql Micro Bacteria UrnS Ql Micro Bacteria UrnS Ql Micro Bacteria UrnS Ql Micro [id number] Bacteria UrnS Ql Micro Bacteria UrnS Ql [...] are final unless otherwise noted. Reported Physicians [facility] Ordered by Maya Barron MD on 10/03/2020 Collected: 10/03/2020 Reported: 10/03/2020 19:52 Reported Physicians See Note None Note: Reported Physicians:Ordering: Yoli NapolesAttending: Charles Silva To: Maya Barron Reviewed by Maya Barron MD on 10/04; All test results are final unless otherwise noted. CBC W AUTO DIFF [facility] Ordered by Maya Barron MD [...] Auto See Note (0-2) N (Normal) Note: 0.10.3L82381966814.1Responsible Ob fire observer: IG% IG% 100.1375 (B) Hct VFr [...] are final unless otherwise noted. Reported Physicians [facility] Ordered by Maya Barron MD on 09/18/2020 Collected: 09/18/2020 Reported: 09/18/2020 20:10 Reported Physicians See Note None Note: Reported Physicians:Ordering: Yoli NapolesAttending: Charles Silva To: Maya Barron Reviewed by Maya Barron MD on 09/20; All test results are final unless otherwise noted. BHCG, QUANTITATIVE [facility] Ordered by Maya Barron MD on 09/18/2020 Collected: 09/18/2020 Reported: 09/18/2020 20:21 B-HCG [facility] [id number] MilliInternationalUnitsPerMilliLiter_[Arbitrary_Con (0-10) H (High) Note: APPROXIMATE GESTATION [...] are final unless otherwise noted. Reported Physicians [facility] Ordered by Maya Barron MD on 09/18/2020 Collected: 09/18/2020 Reported: 09/18/2020 20:22 Reported Physicians See Note None Note: Reported Physicians:Ordering: Yoli NapolesAttending: Charles Silva To: Maya Barron Reviewed by Maya Barron MD on 09/20; All test results are final unless otherwise noted. TROPONIN [facility] Ordered by Maya Barron MD on 09/18/2020 Collected: 09/18/2020 Reported: 09/18/2020 20:10 Troponin I SerPl-mCnc Less Than 0.015 (0.00-0.09) N (Normal) Note: Less than 0.09 NG/ML Negative 0.10 - 0.77 NG/ML High Risk0.78 NG/ML or Greater PositiveThe WHO defined the cutoff (definition for diagnosis of MO)for this method as 0.78 ng/ml.Responsible Observer: Troponin I Troponin I 600.1101 (G) Reviewed by Maya Barron MD on 09/20; All test results are final unless otherwise noted. Reported Physicians [facility] Ordered by Maya Barron MD on 09/18/2020 Collected: 09/18/2020 Reported: 09/18/2020 20:10 Reported Physicians See Note None Note: Reported Physicians:Ordering: Yoli NapolesAttending: Charles Silva To: Maya Barron Reviewed by Maya Barron MD on 09/20; All test results are final unless otherwise noted. Urine culture [facility] Ordered by Cat Gutierrez RPA on 09/11/2020 Collected: 09/11/2020 Reported: 09/12/2020 13:11 Bacteria Ur Cult See Note None Note: NGNo growth.L1NG NOTES See Note None Note: GEORGIANA PICKARD IN OTHER NAME IN MEDICAL RECORD Reviewed by Cat Gutierrez RPA on 09/12; All test results are final unless otherwise noted. Reported Physicians [facility] Ordered by Cat Gutierrez RPA on 09/11/2020 Collected: 09/11/2020 Reported: 09/12/2020 13:11 Reported Physicians See Note None Note: Reported Physicians:Ordering: Cat ConwayAttending: Cat Gutierrez Reviewed by Cat Gutierrez RPA on 09/12; All test results are final unless otherwise noted. UA W/ CULTURE IF ABNORMAL [facility] Ordered by Maya Barorn MD on 09/10/2020 Collected: 09/10/2020 Reported: 09/10/2020 17:48 Urobilinogen Ur Ql See Note (0.2-1 EU/dl) None Note: 0.2 EU/dl0.2 EU/[id number] E U/dlResponsible Observer: UROBILINOGEN UROBILINOGEN 300.4500 (C) RBC # Ur Strip NEGATIVE (NEGATIVE) None Note: Responsible Observer: BLOOD BLOOD 300.4652 (C) Prot Ur Ql Strip See Note (NEGATIVE) None Note: [id number] EResponsible Observer: PROTEIN PROTEIN 300.3750 (C) Ketones Ur Ql Strip See Note (NEGATIVE) None Note: [id number] ble Observer: KETONE KETONE 300.3900 (C) Bilirub Ur Ql Strip.auto See Note (NEGATIVE) None Note: [id number] EResponsible Observer: BILIRUBIN BILIRUBIN 300.4550 (C) Glucose Ur Strip.auto-mCnc NEGATIVE (NEGATIVE) None Note: Responsible Observer: GLUCOSE GLUC OSE 300.3850 (C) Appearance Ur See Note (CLEAR) None Note: CLEARCLEARLCLEARResponsible Observ er: APPEARANCE APPEARANCE 300.3400 (A) Color Ur See Note None Note: YELLOWYELLOWLYELLOWResponsible Obs erver: COLOR COLOR 300.3330 (A) Leukocyte esterase Ur Ql Strip See Note (NEGATIVE) None Note: [id number] EResponsible Observer: LEUKOCYTES LEUKOCYTES 300.3576 (C) Nitrite Ur Ql Strip See Note (NEGATIVE) None Note: [id number] EResponsible Observer: NITRITE NITRITE 300.3652 (B) pH [...] are final unless otherwise noted. Reported Physicians [facility] Ordered by Maya Barron MD on 09/10/2020 Collected: 09/10/2020 Reported: 09/10/2020 17:48 Reported Physicians See Note None Note: Reported Physicians:Ordering: Les Vanegas: Fady Raza To: Maya Barron Reviewed by Maya Barron MD on 09/11; All test results are final unless otherwise noted. BHCG, QUANTITATIVE [facility] Ordered by Maya Barron MD on 09/10/2020 Collected: 09/10/2020 Reported: 09/10/2020 15:48 B-HCG [facility] [address] MilliInternationalUnitsPerMilliLiter_[Arbitrary_Con (0-10) H (High) Note: @Instrument will [...] are final unless otherwise noted. Reported Physicians [facility] Ordered by Maya Barron MD on 09/10/2020 Collected: 09/10/2020 Reported: 09/10/2020 15:49 Reported Physicians See Note None Note: Reported Physicians:Ordering: Les Vanegas: Fady Raza To: Maya Barron Reviewed by Maya Barron MD on 09/11; All test results are final unless otherwise noted. ABO/Rh Type [facility] Ordered by Maya Barron MD on 09/10/2020 Collected: 09/10/2020 Reported: 09/10/2020 15:43 Blood bank studies Yes None Note: Responsible Observer: Prev. Histor y? Previous History? 100.0800 (A) Blood Type See Note None Note: OPO PositiveLResponsible Observer: Blood Type Blood Type 110.0950 (C) Reviewed by Maya Barron MD on 09/11; All test results are final unless otherwise noted. Reported Physicians [facility] Ordered by Maya Barron MD on 09/10/2020 Collected: 09/10/2020 Reported: 09/10/2020 15:43 Reported Physicians See Note None Note: Reported Physicians:Ordering: Les Vanegastending: Fady Raza To: Maya Barron Reviewed by Maya Barron MD on 09/11; All test results are final unless otherwise noted. COVID QUEST [facility] Ordered by Maya Barron MD [...] findings,re- testing should be considered in [facility]. Laboratory test results shouldalways be considered in the context of clinicalobservations and epidemiological data in making a finaldiagnosis and patient management decisions.Please review the "Fact Sheets" and FDA authorizedlabeling available for health care providers andpatients using the following websites:https://www.[employer] .com/home/Covid-19/HCP/NAAT/fact-gkmys8twkyo://www.[employer]/home/Cov id-19/Patients/NAAT/fact-mowgk0Saus test has been authorized by the FDA under anEmergency Use Authorization (EUA) for use by authorizedlaboratories.Due to the current public health emergency, [facility] is receiving a high volume of samples [...] information about COVID-19 can be foundat the [employer] website:www.[employer].com/Covid19.THIS TEST WAS PERFORMED AT:[facility] [id number] ONEILLesponsible Observer: COVID-19 COVID-19 ТАТЬЯНА (SARS-CoV-2) [id number] 914.1511 ([facility]) Reviewed by Maya Barron MD on 08/25; All test results are final unless otherwise noted. Reported Physicians [facility] Ordered by Maya Barron MD on 08/23/2020 Collected: 08/23/2020 Reported: 08/25/2020 03:57 Reported Physicians See Note None Note: Reported Physicians:Ordering: Sana Recinosending: Sammie Ann To: Maya Barron Reviewed by Maya Barron MD on 08/25; All test results are final unless otherwise noted. Rapid Strep [facility] Ordered by Maya Barron MD on 08/15/[address] [place] [address], [phone] Collected: 08/15/2020 Reported: 08/15/2020 11:47 tel : strep antigen normal (negative) N (Normal) Reviewed by Maya Barron MD on 08/15; All test results are final unless otherwise noted. Urinalysis w/out microscopy [facility] Ordered by Maya Barron MD on 08/15/2020 [address] [place], [address] Specimen Source: Urine Collected: 08/15/2020 Reporte d: [...] unless otherwise noted. Extended hours FLU/COV2 NAAT [facility] Ordered by Maya Barron MD on 08/15/2020 Collected: 08/15/2020 Reported: 08/15/2020 15:55 Extended hours FLU/COV2 NAAT See Note None Note: TNPNo Reportable ResultLTNPNo Repo rtable WwvtvtD6IWT NOTES See Note None Note: GEORGIANA PICKARD IN OTHER NAME IN MEDICAL RECORD Reviewed by Maya Barron MD on 08/16; All test results are final unless otherwise noted. Reported Physicians [facility] Ordered by Maya Barron MD on 08/15/2020 Collected: 08/15/2020 Reported: 08/15/2020 15:55 Reported Physicians See Note None Note: Reported Physicians:Ordering: Maya AlvarengaAttending: Maya Barron Reviewed by Maya Barron MD on 08/16; All test results are final unless otherwise noted. Sweta Raquel SARS/FLU [facility] Ordered by Maya Barron MD on 08/15/2020 Collected: 08/15/2020 Reported: 08/15/2020 15:55 Sweta Raquel SARS/FLU See Note None Note: Sweta Raquel is a rapid, automated q ualitative anddifferentiation of Influenza type A,B and MNAH-REG-9OEJI-RT-PCR testNORMAL VALUE IS "NOT DETECTED".Limitations of the sweta raquel Influenza A/B & XWDE-KYV-1xtiuv method.Modifications to manufacturers recommendation and proceduresmay alter performance of the test.Negative results do not preclude Influenza A,B or SARS- OGR8yrumlnoprn and should not be used as the [...] out diseases caused by other bacterialor viral pathogens.[id number]-nwg CoV RNA Resp Ql ТАТЬЯНА+probeLNNSARS SARS-COV-2 NOT [id number]-MBO-1 NOT ZKMUMDEX11976-6RPDZC RNA Resp Ql ТАТЬЯНА+probeLNNFLUAInfluenza A Not VcbapvedK1999171153Eidixhczw A Not Bhenufcl82441-5NLGBU RNA Resp Ql ТАТЬЯНА+probeLNNINBInfluenza B Not [id number] B Not Detected NOTES See Note None Note: GEORGIANA PICKARD IN OTHER NAME IN MEDICAL RECORD Reviewed by Maya Barron MD on 08/18; All test results are final unless otherwise noted. Throat culture [facility] Ordered by Maya Barron MD on 08/15/2020 Collected: 08/15/2020 Reported: 08/17/2020 06:37 Throat culture results Normal Deisy None Reviewed by Maya Barron MD on 08/18; All test results are final unless otherwise noted. Reported Physicians [facility] Ordered by Maya Barron MD on 08/15/2020 Collected: 08/15/2020 Reported: 08/17/2020 06:37 Reported Physicians See Note None Note: Reported Physicians:Ordering: Maya AlvarengaAttending: Maya Barron Reviewed by Maya Barron MD on 08/18; All test results are final unless otherwise noted. AFFIRM [facility] Ordered by Cat Gutierrez RPA on 08/09/2020 Collected: 08/09/2020 Reported: 08/11/2020 06:52 Dionna species DNA Probe NOT DETECTED (NOT DETECTED) None Note: THIS TEST WAS PERFORMED AT:[facility] [address]YUDFAQ MERATI,CLAUDYesponsible Observer: Dionna DNA Dionna species DNA Probe [id number] 913.2350 ([facility]) Gardnerella DNA Probe DETECTED (NOT DETECTED) H (High) Note: Increased levels of G. vaginalis m ay not be significantin the absence of signs and symptoms of bacterialvaginosis.Responsible Observer: Gardnerella DNA Gardnerella DNA Probe [id number] 913.2345 ([facility]) Trichomonas DNA Probe NOT DETECTED (NOT DETECTED) None Note: Responsible Observer: Trichomonas DNA Trichomonas DNA Probe [id number] 913.2340 ([facility]) NOTES See Note None Note: PICKARD:IN OTHER NAME IN MEDICAL RECORD Reviewed on 08/11/2020; All test result s are final unless otherwise noted. Reported Physicians [facility] Ordered by Cat Gutierrez RPA on 08/09/2020 Collected: 08/09/2020 Reported: 08/11/2020 06:52 Reported Physicians See Note None Note: Reported Physicians:Ordering: Atte nding: Rigo Gutierrez To: Maya Barron Reviewed on 08/11/2020; All test result s are final unless otherwise noted. GCAMP [facility] Ordered by Cat Gutierrez RPA on 08/09/2020 Collected: 08/09/2020 Reported: 08/11/2020 06:52 C trach rRNA XXX Ql ТАТЬЯНА+probe See Note (NOT DETECTED) None Note: NOT DETECTEDNOT [id number] 6NOT DETECTEDResponsible Observer: C.Trach RNA Chlamydia trachomatis DNA-ТАТЬЯНА [id number] 913.9900 ([facility]) N gonorrhoea rRNA XXX Ql ТАТЬЯНА+probe See Note (NOT DETECTED) None Note: NOT DETECTEDNOT [id number] 6NOT DETECTEDResponsible Observer: GC RNA Neisseria gonorrhoeae DNA -ТАТЬЯНА 35453368 913.9903 ([facility]) Chlamydia/GC DNA Note SEE NOTE None Note: The analytical performance charact eristics of thisassay, when used to test SurePath(TM) specimens have beendetermined by [employer]. The modifications havenot been cleared or approved by the FDA. This assay hasbeen validated pursuant to the CLIA regulations and isused for clinical purposes.For additional information, please refer tohttps://education.[employer]/faq/EML358(This link is being provided for information/educational purposes only.)THIS TEST WAS PERFORMED AT:[facility] [address]KACLAUDY BURGESSesponsible Observer: GC/Chlam Note Chlamydia/GC DNA Note [id number] 913.9956 (A) NOTES See Note None Note: PICKARD:IN OTHER NAME IN MEDICAL RECORD Reviewed by Cat Gutierrez RPA on 08/12; All test results are final unless otherwise noted. Reported Physicians [facility] Ordered by Cat Gutierrez RPA on 08/09/2020 Collected: 08/09/2020 Reported: 08/11/2020 06:52 Reported Physicians See Note None Note: Reported Physicians:Ordering: Atte memeing: Rigo Gutierrez To: Maya Barron Reviewed by Cat Gutierrez RPA on 08/12; All test results are final unless otherwise noted. HPVI [facility] Ordered by Cat Gutierrez RPA on 08/09/2020 Collected: 08/09/2020 Reported: 08/15/2020 06:53 Thin Prep Vag See Note None Note: See scanned reportSee scanned repo rtLSee scanned reportResponsible Observer: TP w/HPV if ASC Thinprep w/HPV if ASCUS 805.1454 ([facility]) NOTES See Note None Note: IVK06-78Wknpzmgaqa Technique: BRUS H-SPATULABody Site: CERVIX Reviewed by Cat Gutierrez RPA on 08/15; All test results are final unless otherwise noted. Reported Physicians [facility] Ordered by Cat Gutierrez RPA on 08/09/2020 Collected: 08/09/2020 Reported: 08/15/2020 06:53 Reported Physicians See Note None Note: Reported Physicians:Ordering: Jannet barton: Rigo Gutierrez To: Maya Barron Reviewed by Cat Gutierrez RPA on 08/15; All test results are final unless otherwise noted. ADD ON MICROSCOPIC [facility] Ordered by Cat Gutierrez RPA on 08/09/2020 Collected: 08/09/2020 Reported: 08/09/2020 12:23 ADD ON MICROSCOPIC See Note (0-5) H (High) Note: NOTES OTHER/NOT INTERPRETED Bacteria UrnS Ql Micro SMALL AMOUNT Bacteria UrnS Ql Micro SMALL AMOUNT Bacteria UrnS Ql Micro L Bacteria UrnS Ql Micro Bacteria UrnS Ql Micro Bacteria UrnS Ql Micro Bacteria UrnS Ql Micro [id number] Bacteria UrnS Ql Micro Bacteria UrnS Ql [...] Ql Micro Mucous Threads UrnS Ql Micro [id number] Mucous Threads UrnS Ql Micro Mucous Threads UrnS Ql Micro MODERATE AMOUNT WBC # Ur Manual 5-8 @08/09/20 1210: UA W/ MICRO added. RFLXG = UMIC.Method of Collection:: Clean CatchResponsible Observer: WBC WBC 300.5000 (A) Reviewed by Cat Gutierrez RPA on 08/12; All test results are final unless otherwise noted. Reported Physicians [facility] Ordered by Cat Gutierrez RPA on 08/09/2020 Collected: 08/09/2020 Reported: 08/10/2020 17:47 Reported Physicians See Note None Note: Reported Physicians:Ordering: Jannet valentineing: Rigo Gutierrez To: Maya Barron Reviewed by Cat Gutierrez RPA on 08/12; All test results are final unless otherwise noted. URINALYSIS [facility] Ordered by Cat Gutierrez RPA on 08/09/2020 Collected: 08/09/2020 Reported: 08/09/2020 12:23 Urobilinogen Ur Ql See Note (0.2-1 EU/dl) None Note: 1 EU/dl1 EU/[id number] EU/dlRe sponsible Observer: UROBILINOGEN UROBILINOGEN 300.4500 (C) RBC # Ur Strip NEGATIVE (NEGATIVE) None Note: Responsible Observer: BLOOD BLOOD 300.4650 (C) Prot Ur Ql Strip See Note (NEGATIVE) None Note: [id number] ble Observer: PROTEIN PROTEIN 300.3750 (C) Ketones Ur Ql Strip See Note (NEGATIVE) None Note: [id number] ble Observer: KETONE KETONE 300.3900 (C) Bilirub Ur Ql Strip.auto See Note (NEGATIVE) None Note: [id number] EResponsible Observer: BILIRUBIN BILIRUBIN 300.4550 (C) Glucose Ur Strip.auto-mCnc NEGATIVE (NEGATIVE) None Note: Responsible Observer: GLUCOSE GLUC OSE 300.3850 (C) Appearance Ur See Note (CLEAR) None Note: CLEARCLEARLCLEARResponsible Observ er: APPEARANCE APPEARANCE 300.3400 (A) Color Ur See Note None Note: DARK YELLOWDARK YELLOWLDARK YELLOW Responsible Observer: COLOR COLOR 300.3300 (A) Leukocyte esterase Ur Ql Strip See Note (NEGATIVE) None Note: [id number]@DO MICR O!!!!Responsible Observer: LEUKOCYTES LEUKOCYTES 300.3575 (C) Nitrite Ur Ql Strip See Note (NEGATIVE) None Note: [id number] EResponsible Observer: NITRITE NITRITE 300.3650 (B) pH [...] are final unless otherwise noted. Urine culture [facility] Ordered by Cat Gutierrez [facility] on 08/09/2020 Collected: 08/09/2020 Reported: 08/10/2020 08:33 Bacteria Ur Cult See Note None Note: NGNo growth.L1NG Reviewed by Cat Gutierrez [facility] on 08/14; All test results are final unless otherwise noted. MEDMATCH [facility] Ordered by Cat Gutierrez [facility] on 08/09/2020 Collected: 08/09/2020 Reported: 08/13/2020 15:56 MEDMATCH See scanned report None Note: Responsible Observer: MEDMATCH MED MATCH [phone] ([facility]) Reviewed by Cat Gutierrez [facility] on 08/14; All test results are final unless otherwise noted. Reported Physicians [facility] Ordered by Cat Gutierrez [facility] on 08/09/2020 Collected: 08/09/2020 Reported: 08/13/2020 15:56 Reported Physicians See Note None Note: Reported Physicians:Ordering: Jannet barton: Rigo Gutierrez To: Maya Barron Reviewed by Cat Gutierrez [facility] on 08/14; All test results are final unless otherwise noted. Varicella-Zoster IgG Antibody [facility] Ordered by Cat Gutierrez [facility] on 08/09/2020 Collected: 08/09/2020 Reported: 08/10/2020 17:47 VZV IgG Ser [facility] 242.10 None Note: Index Interpr etation [...] Antibody Immunity Screen, ACIF.THIS TEST WAS PERFORMED AT:[email or web address] [address]HTNJXG ME RATI,MDResponsible Observer: VARICELLA IGG Varicella-Zoster IgG Antibody [id number] 275.4939 ([facility]) NOTES See Note None Note: Patient Street Address: [address] [place] [address] [address] City: [place] [facility] Zip Code: [address]I[place]vcrel Reviewed by Cat Gutierrez RPA on 08/12; All test results are final unless otherwise noted. CBC [facility] Ordered by Cat Gutierrez RPA [...] Auto See Note (0-2) N (Normal) Note: 0.20.2D99232547457.2Responsible Ob fire observer: IG% IG% 100.1375 (B) Hct VFr [...] results are final unless otherwise noted. TSH [facility] Ordered by Cat Gutierrez RPA on 08/09/2020 Collected: 08/09/2020 Reported: 08/09/2020 14:24 TSH SerPl DL<=0.005 mIU/L-aCnc 1.18 MicroInternationalUnitsPerMilliLiter_[Arbitrary_Con (0.35-5. 50) N (Normal) Note: Responsible Observer: TSH TSH 600 .7055 (D) Reviewed by Cat Gutierrez RPA on 08/14; All test results are final unless otherwise noted. Lead (Venous) Wh.Bld [facility] Ordered by Cat Gutierrez RPA on 08/09/2020 Collected: 08/09/2020 Reported: 08/10/2020 17:47 Lead Bld-sCnc <1 (<5) None Note: See Note 1Note 1This test was faith granados and its analytical performancecharacteristics have been determined by [employer]. It has not been cleared or approved by theFDA. This assay has been validated pursuant to the CLIAregulations and is used for clinical purposes.THIS TEST WAS PERFORMED AT:[email or web address]-[address] [id number] MERATI,MDResponsible Observer: Lead, WB Lead, Whole Blood [id number] 911.2190 ([facility]) NOTES See Note None Note: Patient Street Address: [facility] [address]Patient City: [place]: [facility] Zip Code: [address]Upehzgk Reviewed by Cat Gutierrez RPA on 08/14; All test results are final unless otherwise noted. [facility] REF [facility] Ordered by Cat Gutierrez RPA on 08/09/2020 Collected: 08/09/2020 Reported: 08/13/2020 15:26 T pallidum Ab Ser Ql Aggl See Note (Nonreactive) None Note: [id number] onreactiveResponsible Observer: TP-PA Treponema pallidum Ab (TP-PA) [id number] 908.0286 ([facility]) HIV1 RNA SerPl Ql ТАТЬЯНА+probe See Note None Note: TNPNo Reportable ResultLTNPNo Repo rtable ResultLLEP.LIVENTNPResponsible Observer: HIV 1 RNA, QL T HIV 1 RNA, QL TMA [id number] 908.0254 ([facility]) HBV surface Ag SerPl Ql IA See Note (NON-REACTIVE) None Note: TFS-MZLIESYDRXB-[id number] 5NON-REACTIVEResponsible Observer: HBSAG Hepatitis B Surface Antigen [id number] 910.2004 ([facility]) RUBV IgG SerPl IA-aCnc 1.76 None Note: Index Interpretatio n ----- <0.90 Not consistent with immunity 0.90-0.99 Equivocal > or = 1.00 Consistent with immunityThe presence of rubella IgG antibody suggestsimmunization or past or current infection withrubella virus.THIS TEST WAS PERFORMED AT:[facility]-[address] [address]PQHPFX MERATI,MDResponsible Observer: Rubella IgG Ab Rubella IgG Ab [id number] 911.2840 ([facility]) HIV1 Ab SerPlBld Ql IA.rapid See Note None Note: TNPNo Reportable ResultLTNPNo Repo rtable ResultLLEP.LIVENTNPResponsible Observer: HIV 1 AB HIV 1 AB [id number] 908.0250 ([facility]) HBsAg Confirmation See Note None Note: TNPNo Reportable ResultLTNPNo Repo rtable ResultLLEP.LIVENTNPResponsible Observer: HBsAg Confirm HBsAg Confirmation [id number] ([facility]) HIV (1&2) Screen, 4th Gen NON-REACTIVE [...] for this purpose.For additional information please refer tohttp://education.[employer]/faq/FBI752(This link is being provided for informational/educational purposes only.)The performance of this assay has not been clinicallyvalidated in patients less than 2 years old.THIS TEST WAS PERFORMED AT:[facility] [address]HPUDVC MERATI,MDResponsible Observer: HIV ABS HIV (1&2) Screen, 4th Gen [id number] 908.0228 (I) Reviewed by Cat Gutierrez RPA on 08/14; All test results are final unless otherwise noted. Reported Physicians [facility] Ordered by Cat Gutierrez RPA on 08/09/2020 Collected: 08/09/2020 Reported: 08/13/2020 15:27 Reported Physicians See Note None Note: Reported Physicians:Ordering: Atte nding: Rigo Gutierrez To: Maya Barron Reviewed by Cat Gutierrez RPA on 08/14; All test results are final unless otherwise noted. Type and Screen [facility] Ordered by Cat Gutierrez RPA [...] are final unless otherwise noted. Reported Physicians [facility] Ordered by Cat Gutierrez RPA on 08/09/2020 Collected: 08/09/2020 Reported: 08/09/2020 12:39 Reported Physicians See Note None Note: Reported Physicians:Ordering: Cat ConwayAttending: Rigo Gutierrez To: Maya Barron Reviewed by Cat Gutierrez RPA on 08/10; All test results are final unless otherwise noted. HCV RFX ТАТЬЯНА [facility] Ordered by Cat Gutierrez RPA on 08/09/2020 Collected: 08/09/2020 Reported: 08/10/2020 17:47 HCV Ab Ser Ql See Note (NON-REACTIVE) None Note: UID-EOURCANZVUA-[id number] 7NON-REACTIVEResponsible Observer: HEP C ANTIBODY Hepatitis C Antibody [id number] 914.8305 ([facility]) HCV RNA Qualitative (ТАТЬЯНА) 0.54 (<1.00) None Note: HCV antibody was non-reactive. The re is no laboratoryevidence of HCV infection.In most cases, no further action is required. However,if recent HCV exposure is suspected, a test for HCV RNA(test code 22578) is suggested.For additional information please refer tohttp://education.[employer]/faq/CWC72l1(This link is being provided for informational/educational purposes only.)THIS TEST WAS PERFORMED AT:[email or web address] [address]CLAUDY ONEILLesponsible Observer: SIG TO C/O SIGNAL TO CUTOFF [id number] 914.7133 ([facility]) NOTES See Note None Note: Patient Street Address: [address] City: [place] State: [facility] Zip Code: [address]Ldnmvik Reviewed by Cat Gutierrez RPA on 08/12; All test results are final unless otherwise noted. Reported Physicians [facility] Ordered by Cat Gutierrez RPA on 08/09/2020 Collected: 08/09/2020 Reported: 08/10/2020 17:47 Reported Physicians See Note None Note: Reported Physicians:Ordering: Atte nding: Brenda, GaudencioanaCopy To: Maya Barron Reviewed by Cat Gutierrez RPA on 08/12; All test results are final unless otherwise noted. CG, QUANTITATIVE [facility] Ordered by Cat Gutierrez RPA on 08/08/2020 Collected: 08/08/2020 Reported: 08/08/2020 11:53 B-HCG [facility] [address] MilliInternationalUnitsPerMilliLiter_[Arbitrary_Con (0-10) H (High) Note: @Instrument will [...] are final unless otherwise noted. Reported Physicians [facility] Ordered by Cat Gutierrez RPA on 08/08/2020 Collected: 08/08/2020 Reported: 08/08/2020 11:54 Reported Physicians See Note None Note: Reported Physicians:Ordering: Atte nding: Gutierrez, DyanaCopy To: Maya Barron Reviewed by Cat Gutierrez RPA on 08/08; All test results are final unless otherwise noted. BHCG, QUANTITATIVE [facility] Ordered by Cat Gutierrez RPA on 08/01/2020 Collected: 08/01/2020 Reported: 08/01/2020 02:26 B-HCG [facility] [address] MilliInternationalUnitsPerMilliLiter_[Arbitrary_Con (0-10) H (High) Note: @Instrument will [...] are final unless otherwise noted. Reported Physicians [facility] Ordered by Cat Gutierrez RPA on 08/01/2020 Collected: 08/01/2020 Reported: 08/01/2020 02:26 Reported Physicians See Note None Note: Reported Physicians:Ordering: Aj Ferreiraending: Jos Rivas To: Maya Barron Reviewed by Cat Gutierrez RPA on 08/01; All test results are final unless otherwise noted. Type and Screen [facility] Ordered by Cat Gutierrez RPA [...] unless otherwise noted. CBC W AUTO DIFF [facility] Ordered by Cat Gutierrez RPA [...] Auto See Note (0-2) N (Normal) Note: 0.10.6R82754719623.1Responsible Ob fire observer: IG% IG% 100.1375 (B) Hct VFr [...] are final unless otherwise noted. Reported Physicians [facility] Ordered by Cat Gutierrez RPA on 08/01/2020 Collected: 08/01/2020 Reported: 08/01/2020 02:26 Reported Physicians See Note None Note: Reported Physicians:Ordering: Shilpa Ferreira: Jos Rivas To: Maya Barron Reviewed by Cat Gutierrez RPA on 08/01; All test results are final unless otherwise noted. ADD ON MICROSCOPIC [facility] Ordered by Cat Gutierrez RPA on 08/01/2020 Collected: 08/01/2020 Reported: 08/01/2020 01:01 ADD ON MICROSCOPIC See Note (0-5) None Note: NOTES OTHER/NOT INTERPRETED Bacteria UrnS Ql Micro MODERATE AMOUNT Bacteria UrnS Ql Micro MODERATE AMOUNT Bacteria UrnS Ql Micro L Bacteria UrnS Ql Micro Bacteria UrnS Ql Micro Bacteria UrnS Ql Micro Bacteria UrnS Ql Micro [id number] Bacteria UrnS Ql Micro Bacteria UrnS Ql [...] are final unless otherwise noted. Reported Physicians [facility] Ordered by Cat Gutierrez RPA on 08/01/2020 Collected: 08/01/2020 Reported: 08/01/2020 01:01 Reported Physicians See Note None Note: Reported Physicians:Ordering: Shilpa Ferreira: Jos Rivas To: Maya Barron Reviewed by Cat Gutierrez RPA on 08/01; All test results are final unless otherwise noted. UA W/ CULTURE IF ABNORMAL [facility] Ordered by Cat Gutierrez RPA on 08/01/2020 Collected: 08/01/2020 Reported: 08/01/2020 01:01 Urobilinogen Ur Ql See Note (0.2-1 EU/dl) None Note: 0.2 EU/dl0.2 EU/[id number] E U/dlResponsible Observer: UROBILINOGEN UROBILINOGEN 300.4500 (C) RBC # Ur Strip SMALL (NEGATIVE) None Note: @DO MICRO!!!!Responsible Observer: BLOOD BLOOD 300.4652 (C) Prot Ur Ql Strip See Note (NEGATIVE) None Note: [id number] EResponsible Observer: PROTEIN PROTEIN 300.3750 (C) Ketones Ur Ql Strip See Note (NEGATIVE) None Note: 15 mg/dL15 mg/[id number] mg/d LResponsible Observer: KETONE KETONE 300.3900 (C) Bilirub Ur Ql Strip.auto See Note (NEGATIVE) None Note: [id number] EResponsible Observer: BILIRUBIN BILIRUBIN 300.4550 (C) Glucose Ur Strip.auto-mCnc NEGATIVE (NEGATIVE) None Note: Responsible Observer: GLUCOSE GLUC OSE 300.3850 (C) Appearance Ur See Note (CLEAR) None Note: CLEARCLEARLCLEARResponsible Observ er: APPEARANCE APPEARANCE 300.3400 (A) Color Ur See Note None Note: YELLOWYELLOWLYELLOWResponsible Obs erver: COLOR COLOR 300.3330 (A) Leukocyte esterase Ur Ql Strip See Note (NEGATIVE) None Note: [id number]@DO MICR O!!!!A Culture has been added to this specimen per established criteriaResponsible Observer: LEUKOCYTES LEUKOCYTES 300.3576 (C) Nitrite Ur Ql Strip See Note (NEGATIVE) None Note: [id number] EResponsible Observer: NITRITE NITRITE 300.3652 (B) pH [...] are final unless otherwise noted. Urine culture [facility] Ordered by Cat Gutierrez RPA on 08/01/2020 Collected: 08/01/2020 Reported: 08/02/2020 07:41 Urine culture result See Note None Note: Greater than 100,000 CFU/MLLactoba cilli no senst done NOTES See Note None Note: @08/01/20 0101: Urine culture adde d. RFLXG = CULT.ADD. Reviewed by Cat Gutierrez RPA on 08/02; All test results are final unless otherwise noted. Reported Physicians [facility] Ordered by Cat Gutierrez RPA on 08/01/2020 Collected: 08/01/2020 Reported: 08/02/2020 07:41 Reported Physicians See Note None Note: Reported Physicians:Ordering: Aj Ferreiraending: Jos Rivas To: Maya Barron Reviewed by Cat Gutierrez RPA on 08/02; All test results are final unless otherwise noted. BHCG, QUANTITATIVE [facility] Ordered by Cat Gutierrez RPA on 07/31/2020 Collected: 07/31/2020 Reported: 07/31/2020 16:53 [facility] [address] MilliInternationalUnitsPerMilliLiter_[Arbitrary_Con (0-10) H (High) Note: @Instrument will [...] are final unless otherwise noted. Reported Physicians [facility] Ordered by Cat Gutierrez RPA on 07/31/2020 Collected: 07/31/2020 Reported: 07/31/2020 16:53 Reported Physicians See Note None Note: Reported Physicians:Ordering: Jannet valentineing: Cat Gutierrez Reviewed by Cat Gutierrez RPA on 08/01; All test results are final unless otherwise noted. ADD ON MICROSCOPIC [facility] Ordered by Cat Gutierrez RPA on 07/27/2020 Collected: 07/27/2020 Reported: 07/27/2020 21:36 ADD ON MICROSCOPIC See Note (0-5) None Note: NOTES OTHER/NOT INTERPRETED Bacteria UrnS Ql Micro SMALL AMOUNT Bacteria UrnS Ql Micro SMALL AMOUNT Bacteria UrnS Ql Micro L Bacteria UrnS Ql Micro Bacteria UrnS Ql Micro Bacteria UrnS Ql Micro Bacteria UrnS Ql Micro [id number] Bacteria UrnS Ql Micro Bacteria UrnS Ql [...] are final unless otherwise noted. Reported Physicians [facility] Ordered by Cat Gutierrez RPA on 07/27/2020 Collected: 07/27/2020 Reported: 07/27/2020 21:37 Reported Physicians See Note None Note: Reported Physicians:Ordering: Daquan BustamanteAttending: Daquan GoodCopyifan To: Maya Barron Reviewed by Cat Gutierrez RPA on 07/28; All test results are final unless otherwise noted. UA W/ CULTURE IF ABNORMAL [facility] Ordered by Cat Gutierrez RPA on 07/27/2020 Collected: 07/27/2020 Reported: 07/27/2020 21:36 Urobilinogen Ur Ql See Note (0.2-1 EU/dl) None Note: 0.2 EU/dl0.2 EU/[id number] E U/dlResponsible Observer: UROBILINOGEN UROBILINOGEN 300.4500 (C) RBC # Ur Strip NEGATIVE (NEGATIVE) None Note: Responsible Observer: BLOOD BLOOD 300.4652 (C) Prot Ur Ql Strip See Note (NEGATIVE) None Note: [id number] EResponsible Observer: PROTEIN PROTEIN 300.3750 (C) Ketones Ur Ql Strip See Note (NEGATIVE) None Note: [id number] EResponsible Observer: KETONE KETONE 300.3900 (C) Bilirub Ur Ql Strip.auto See Note (NEGATIVE) None Note: [id number] EResponsible Observer: BILIRUBIN BILIRUBIN 300.4550 (C) Glucose Ur Strip.auto-mCnc NEGATIVE (NEGATIVE) None Note: Responsible Observer: GLUCOSE GLUC OSE 300.3850 (C) Appearance Ur See Note (CLEAR) None Note: CLEARCLEARLCLEARResponsible Observ er: APPEARANCE APPEARANCE 300.3400 (A) Color Ur See Note None Note: YELLOWYELLOWLYELLOWResponsible Obs erver: COLOR COLOR 300.3330 (A) Leukocyte esterase Ur Ql Strip See Note (NEGATIVE) None Note: [id number]@DO MICR O!!!!A Culture has been added to this specimen per established criteriaResponsible Observer: LEUKOCYTES LEUKOCYTES 300.3576 (C) Nitrite Ur Ql Strip See Note (NEGATIVE) None Note: [id number] EResponsible Observer: NITRITE NITRITE 300.3652 (B) pH [...] are final unless otherwise noted. Urine culture [facility] Ordered by Cat Gutierrez RPA on 07/27/2020 Collected: 07/27/2020 Reported: 07/29/2020 07:36 Urine culture result 50,000 CFU/ML Lactobacilli no senst done None NOTES See Note None Note: @07/27/202136: Urine culture adde d. RFLXG = CULT.ADD. Reviewed by Cat Gutierrez RPA on 07/31; All test results are final unless otherwise noted. Reported Physicians [facility] Ordered by Cat Gutierrez RPA on 07/27/2020 Collected: 07/27/2020 Reported: 07/29/2020 07:37 Reported Physicians See Note None Note: Reported Physicians:Ordering: Daquan BustamanteAttending: Daquan GoodCopy To: Maya Barron Reviewed by Cat Gutierrez RPA on 07/31; All test results are final unless otherwise noted. BHCG, QUANTITATIVE [facility] Ordered by Cat Gutierrez RPA on 07/27/2020 Collected: 07/27/2020 Reported: 07/27/2020 22:08 [facility] MilliInternationalUnitsPerMilliLiter_[Arbitrary_Con (0-10) H (High) Note: @Instrument [...] are final unless otherwise noted. Reported Physicians [facility] Ordered by Cat Gutierrez RPA on 07/27/2020 Collected: 07/27/2020 Reported: 07/27/2020 22:08 Reported Physicians See Note None Note: Reported Physicians:Ordering: Daquan BustamanteAttending: Daquan GoodCopyifan To: Maya Barron Reviewed by Cat Gutierrez RPA on 07/28; All test results are final unless otherwise noted. CBC W AUTO DIFF [facility] Ordered by Cat Gutierrez RPA [...] Auto See Note (0-2) N (Normal) Note: 0.20.9U76060863211.2Responsible Ob fire observer: IG% IG% 100.1375 (B) Hct VFr [...] are final unless otherwise noted. Reported Physicians [facility] Ordered by Cat Gutierrez RPA on 07/27/2020 Collected: 07/27/2020 Reported: 07/27/2020 20:11 Reported Physicians See Note None Note: Reported Physicians:Ordering: Daquan BustamanteAttending: Daquan GoodCopyifan To: Maya Barron Reviewed by Cat Gutierrez RPA on 07/28; All test results are final unless otherwise noted. Type and Screen [facility] Ordered by Cat Gutierrez RPA [...] are final unless otherwise noted. Reported Physicians [facility] Ordered by Cat Gutierrez RPA [...] are final unless otherwise noted. Reported Physicians [facility] Ordered by Cat Gutierrez RPA on 07/27/2020 Collected: 07/27/2020 Reported: 07/27/2020 20:37 Reported Physicians See Note None Note: Reported Physicians:Ordering: Daquan BustamanteAttending: Ariella Good To: Maya Barron Reviewed by Cat Gutierrez RPA on 07/28; All test results are final unless otherwise noted. BHCG, QUANTITATIVE [facility] Ordered by Maya Barron MD on 07/26/2020 Collected: 07/26/2020 Reported: 07/26/2020 16:48 [facility] MilliInternationalUnitsPerMilliLiter_[Arbitrary_Con (0-10) H (High) Note: @Instrument [...] are final unless otherwise noted. Reported Physicians [facility] Ordered by Maya Barron MD on 07/26/2020 Collected: 07/26/2020 Reported: 07/26/2020 16:48 Reported Physicians See Note None Note: Reported Physicians:Ordering: Maya AlvarengaAttending: Maya Barron Reviewed by Maya Barron MD on 07/27; All test results are final unless otherwise noted. Sweta Raquel SARS/FLU [facility] Ordered by Bandar Cleveland PA-C on 07/25/2020 Collected: 07/25/2020 Reported: 07/25/2020 18:47 Sweta Raquel SARS/FLU See Note None Note: Sweta Raquel is a rapid, automated q ualitative anddifferentiation of Influenza type A,B and TRKT-PTC-0YHDW-RT-PCR testNORMAL VALUE IS "NOT DETECTED".Limitations of the sweta raquel Influenza A/B & VZWM-FYS-7pqlms method.Modifications to manufacturers recommendation and proceduresmay alter performance of the test.Negative results do not preclude Influenza A,B or SARS- WWA1yloclinlne and should not be used as the [...] out diseases caused by other bacterialor viral pathogens.85490-7XXYC-VpG-6 RNA Resp Ql ТАТЬЯНА+probeLNNOSNo O rganisms [id number] Organisms Detected Reviewed by Bandar Cleveland PA-C on ; All test results are final unless otherwise noted. Reported Physicians [facility] Ordered by Bandar Cleveland PA-C on 07/25/2020 Collected: 07/25/2020 Reported: 07/25/2020 18:47 Reported Physicians See Note None Note: Reported Physicians:Ordering: Connie Wilsonttending: Kami Cleveland To: Health, Public Reviewed by Bandar Cleveland PA-C on ; All test results are final unless otherwise noted. Extended hours FLU/COV2 NAAT [facility] Ordered by Bandar Cleveland PA-C on 07/25/2020 Collected: 07/25/2020 Reported: 07/25/2020 18:47 Extended hours FLU/COV2 NAAT See Note None Note: TNPNo Reportable ResultLTNPNo Repo rtable TggzbdB1GYE Reviewed by Bandar Cleveland PA-C on ; All test results are final unless otherwise noted. Reported Physicians [facility] Ordered by Bandar Cleveland PA-C on 07/25/2020 Collected: 07/25/2020 Reported: 07/25/2020 18:47 Reported Physicians See Note None Note: Reported Physicians:Ordering: Connie Wilsonttending: Kami Cleveland To: Health, Public Reviewed by Bandar Cleveland PA-C on ; All test results are final unless otherwise noted. CBC W AUTO DIFF [facility] Ordered by Maya Barron MD [...] Auto See Note (0-2) N (Normal) Note: 0.30.5E59504627685.3Responsible Ob fire observer: IG% IG% 100.1375 (B) Hct VFr [...] test results are final unless otherwise noted. [facility] Ordered by Maya Barron [...] are final unless otherwise noted. Reported Physicians [facility] Ordered by Maya Barron MD on 07/22/2020 Collected: 07/22/2020 Reported: 07/22/2020 02:00 Reported Physicians See Note None Note: Reported Physicians:Ordering: Hong LandaverdeAttending: Hong DouglasCopyifan To: Maya Barron Reviewed by Maya Barron MD on 07/24; All test results are final unless otherwise noted. Sweta Raquel SARS/FLU [facility] Ordered by Maya Barron MD on 07/22/2020 Collected: 07/22/2020 Reported: 07/22/2020 01:29 Sweta Raquel SARS/FLU See Note None Note: Sweta Raquel is a rapid, automated q ualitative anddifferentiation of Influenza type A,B and NTMI-VKL-9RRTV-RT-PCR testNORMAL VALUE IS "NOT DETECTED".Limitations of the sweta raquel Influenza A/B & SBZV-RPC-8lgxcf method.Modifications to manufacturers recommendation and proceduresmay alter performance of the test.Negative results do not preclude Influenza A,B or SARS- DMM4odwcqtifal and should not be used as the [...] out diseases caused by other bacterialor viral pathogens.34840-4XCIU-GhC-3 RNA Resp Ql ТАТЬЯНА+probeLNNOSNo O rganisms PclvezvhR7589508701Vm Organisms Detected Reviewed by Maya Barron MD on 07/24; All test results are final unless otherwise noted. Reported Physicians [facility] Ordered by Maya Barron MD on 07/22/2020 Collected: 07/22/2020 Reported: 07/22/2020 01:29 Reported Physicians See Note None Note: Reported Physicians:Ordering: Dominic Landaverdeending: Alon Douglas To: Maya Barron Reviewed by Maya Barron MD on 07/24; All test results are final unless otherwise noted. UA W/ CULTURE IF ABNORMAL [facility] Ordered by Maya Barron MD on 07/22/2020 Collected: 07/22/2020 Reported: 07/22/2020 01:10 Urobilinogen Ur Ql See Note (0.2-1 EU/dl) None Note: 0.2 EU/dl0.2 EU/jmA11532378617.2 E U/dlResponsible Observer: UROBILINOGEN UROBILINOGEN 300.4500 (C) RBC # Ur Strip NEGATIVE (NEGATIVE) None Note: Responsible Observer: BLOOD BLOOD 300.4652 (C) Prot Ur Ql Strip See Note (NEGATIVE) None Note: [id number] EResponsible Observer: PROTEIN PROTEIN 300.3750 (C) Ketones Ur Ql Strip See Note (NEGATIVE) None Note: [id number] EResponsible Observer: KETONE KETONE 300.3900 (C) Bilirub Ur Ql Strip.auto See Note (NEGATIVE) None Note: [id number] EResponsible Observer: BILIRUBIN BILIRUBIN 300.4550 (C) Glucose Ur Strip.auto-mCnc NEGATIVE (NEGATIVE) None Note: Responsible Observer: GLUCOSE GLUC OSE 300.3850 (C) Appearance Ur See Note (CLEAR) None Note: CLEARCLEARLCLEARResponsible Observ er: APPEARANCE APPEARANCE 300.3400 (A) Color Ur See Note None Note: YELLOWYELLOWLYELLOWResponsible Obs erver: COLOR COLOR 300.3330 (A) Leukocyte esterase Ur Ql Strip See Note (NEGATIVE) None Note: [id number] EResponsible Observer: LEUKOCYTES LEUKOCYTES 300.3576 (C) Nitrite Ur Ql Strip See Note (NEGATIVE) None Note: [id number] EResponsible Observer: NITRITE NITRITE 300.3652 (B) pH [...] are final unless otherwise noted. Reported Physicians [facility] Ordered by Maya Barron MD on 07/22/2020 Collected: 07/22/2020 Reported: 07/22/2020 01:11 Reported Physicians See Note None Note: Reported Physicians:Ordering: Hong LandaverdeAttending: Alon Douglas To: Maya Barron Reviewed by Maya Barron MD on 07/24; All test results are final unless otherwise noted. Extended hours FLU/COV2 NAAT [facility] Ordered by Maya Barron MD on 07/22/2020 Collected: 07/22/2020 Reported: 07/22/2020 01:29 Extended hours FLU/COV2 NAAT See Note None Note: TNPNo Reportable ResultLTNPNo Repo rtable CptnipC5FLD Reviewed by Maya Barron MD on 07/24; All test results are final unless otherwise noted. Reported Physicians [facility] Ordered by Maya Barron MD on 07/22/2020 Collected: 07/22/2020 Reported: 07/22/2020 01:29 Reported Physicians See Note None Note: Reported Physicians:Ordering: Hong LandaverdeAttending: Alon Douglas To: Maya Barron Reviewed by Maya Barron MD on 07/24; All test results are final unless otherwise noted. Urine culture [facility] Ordered by Maya Barron MD on 07/19/2020 Collected: 07/19/2020 Reported: 07/21/2020 07:48 Bacteria Ur Cult See Note None Note: NGNo growth.L1NG Reviewed by Maya Barron MD on 07/21; All test results are final unless otherwise noted. Reported Physicians [facility] Ordered by Maya Barron MD on 07/19/2020 Collected: 07/19/2020 Reported: 07/21/2020 07:49 Reported Physicians See Note None Note: Reported Physicians:Ordering: Cara Alvarengaending: Maya Barron Reviewed by Maya Braron MD on 07/21; All test results are final unless otherwise noted. BHCG, QUANTITATIVE [facility] Ordered by Maya Barron MD [...] are final unless otherwise noted. Reported Physicians [facility] Ordered by Maay Barron MD on 07/17/2020 Collected: 07/17/2020 Reported: 07/17/2020 12:40 Reported Physicians See Note None Note: Reported Physicians:Ordering: Maya AlvarengaAttending: Maya Barron Reviewed by Maya Barron MD on 07/17; All test results are final unless otherwise noted. [employer] COVID-19 [employer]OL [facility] Ordered by Maya Barron MD [...] test, if the virus mutates in [facility] region, Covid-19 may not be detected or may bedetected less predictably.ID NOW COVID-19 is intended for testing a swab directlywithout elution in viral transport media as dilution willresult in decreased detection of low positive samples thatare near the limit of detection of the test.SWAB SAMPLES ELUTED IN VTM ARE NOT APPROPRIATE FOR USE INTHIS TEST.NOSNo Organisms [id number] Organisms Detected Reviewed by Maya Barron MD on 05/31; All test results are final unless otherwise noted. Reported Physicians [facility] Ordered by Maya Barron MD on 05/31/2020 Collected: 05/31/2020 Reported: 05/31/2020 07:08 Reported Physicians See Note None Note: Reported Physicians:Ordering: Johnny HernándezAttending: Johnny CazaresCopyifan To: Maya Barron Reviewed by Maya Barron MD on 05/31; All test results are final unless otherwise noted. BHCG, QUANTITATIVE [facility] Ordered by Maya Barron MD on 05/26/2020 Collected: 05/26/2020 Reported: 05/26/2020 14:49 [facility] [address] MilliInternationalUnitsPerMilliLiter_[Arbitrary_Con (0-10) H (High) Note: @Instrument will [...] are final unless otherwise noted. Reported Physicians [facility] Ordered by Maya Barron MD on 05/26/2020 Collected: 05/26/2020 Reported: 05/26/2020 14:50 Reported Physicians See Note None Note: Reported Physicians:Ordering: Maya AlvarengaAttending: Maya Barron Reviewed by Maya Barron MD on 05/26; All test results are final unless otherwise noted. URINALYSIS [facility] Ordered by Maya Barron MD on 05/23/2020 Collected: 05/23/2020 Reported: 05/23/2020 17:19 Urobilinogen Ur Ql See Note (0.2-1 EU/dl) None Note: 0.2 EU/dl0.2 EU/[id number] E U/dlResponsible Observer: UROBILINOGEN UROBILINOGEN 300.4500 (C) RBC # Ur Strip NEGATIVE (NEGATIVE) None Note: Responsible Observer: BLOOD BLOOD 300.4650 (C) Prot Ur Ql Strip See Note (NEGATIVE) None Note: [id number] EResponsible Observer: PROTEIN PROTEIN 300.3750 (C) Ketones Ur Ql Strip See Note (NEGATIVE) None Note: [id number] EResponsible Observer: KETONE KETONE 300.3900 (C) Bilirub Ur Ql Strip.auto See Note (NEGATIVE) None Note: [id number] EResponsible Observer: BILIRUBIN BILIRUBIN 300.4550 (C) Glucose Ur Strip.auto-mCnc NEGATIVE (NEGATIVE) None Note: Responsible Observer: GLUCOSE GLUC OSE 300.3850 (C) Appearance Ur See Note (CLEAR) None Note: CLEARCLEARLCLEARResponsible Observ er: APPEARANCE APPEARANCE 300.3400 (A) Color Ur See Note None Note: YELLOWYELLOWLYELLOWResponsible Obs erver: COLOR COLOR 300.3300 (A) Leukocyte esterase Ur Ql Strip See Note (NEGATIVE) None Note: [id number] EResponsible Observer: LEUKOCYTES LEUKOCYTES 300.3575 (C) Nitrite Ur Ql Strip See Note (NEGATIVE) None Note: [id number] EResponsible Observer: NITRITE NITRITE 300.3650 (B) pH [...] are final unless otherwise noted. Urine culture [facility] Ordered by Maya Barron MD on 05/23/2020 Collected: 05/23/2020 Reported: 05/24/2020 09:24 Bacteria Ur Cult See Note None Note: NGNo growth.L1NG Reviewed by Maya Barron MD on 05/29; All test results are final unless otherwise noted. MEDMATCH [facility] Ordered by Maya Barron MD on 05/23/2020 Collected: 05/23/2020 Reported: 05/26/2020 17:09 MEDMATCH 1.000 (> or = 1.003) None Note: Responsible Observer: MEDMATCH MED MATCH 910.28015 ([facility]) Reviewed by Maya Barron MD on 05/29; All test results are final unless otherwise noted. Reported Physicians [facility] Ordered by Maya Barron MD on 05/23/2020 Collected: 05/23/2020 Reported: 05/26/2020 17:09 Reported Physicians See Note None Note: Reported Physicians:Ordering: Maya AlvarengaAttending: Maya Barron Reviewed by Maya Barron MD on 05/29; All test results are final unless otherwise noted. Varicella-Zoster IgG Antibody [facility] Ordered by Maya Barron MD [...] Antibody Immunity Screen, ACIF.THIS TEST WAS PERFORMED AT:[email or web address] [id number] ME RATI,MDResponsible Observer: VARICELLA IGG Varicella-Zoster IgG Antibody [id number] 784.0320 ([facility]) NOTES See Note None Note: Patient Street Address: [facility] [address] [facility] [place]: [place] [facility] Zip Code: [address] Reviewed by Maya Barron MD on 05/26; All test results are final unless otherwise noted. Reported Physicians [facility] Ordered by Maya Barron MD on 05/23/2020 Collected: 05/23/2020 Reported: 05/25/2020 17:11 Reported Physicians See Note None Note: Reported Physicians:Ordering: Maya AlvarengaAttending: Maya Barron Reviewed by Maya Barron MD on 05/26; All test results are final unless otherwise noted. CBC [facility] Ordered by Maya Barron MD [...] Auto See Note (0-2) N (Normal) Note: [id number] Ob fire observer: IG% IG% 100.1375 (B) Hct VFr [...] results are final unless otherwise noted. TSH [facility] Ordered by Maya Barron MD on 05/23/2020 Collected: 05/23/2020 Reported: 05/23/2020 18:38 TSH SerPl DL<=0.005 mIU/L-aCnc 1.87 MicroInternationalUnitsPerMilliLiter_[Arbitrary_Con (0.35-5. 50) N (Normal) Note: Responsible Observer: TSH TSH 600 .7055 (D) Reviewed by Maya Barron MD on 05/29; All test results are final unless otherwise noted. Lead (Venous) Wh.Bld [facility] Ordered by Maya Barron MD on 05/23/2020 Collected: 05/23/2020 Reported: 05/25/2020 17:11 Lead Bld-sCnc <1 (<5) None Note: See Note 1Note 1This test was faith granados and its analytical performancecharacteristics have been determined by [employer]. It has not been cleared or approved by theA. This assay has been validated pursuant to the CLIAregulations and is used for clinical purposes.THIS TEST WAS PERFORMED AT:[facility] [id number] MERATI,MDResponsible Observer: Lead, WB Lead, Whole Blood [id number] 911.2190 ([facility]) NOTES See Note None Note: Patient Street Address: [facility] [address]Patient City: [place] State: [facility] Zip Code: [address] Reviewed by Maya Barron MD on 05/29; All test results are final unless otherwise noted. ncPN REF [facility] Ordered by Maya Barron MD on 05/23/2020 Collected: 05/23/2020 Reported: 05/27/2020 20:54 T pallidum Ab Ser Ql Aggl See Note (Nonreactive) None Note: [id number] onreactiveResponsible Observer: TP-PA Treponema pallidum Ab (TP-PA) [id number] 908.0286 ([facility]) HIV1 RNA SerPl Ql ТАТЬЯНА+probe See Note None Note: TNPNo Reportable ResultLTNPNo Repo rtable ResultLLEP.LIVENTNPResponsible Observer: HIV 1 RNA, QL T HIV 1 RNA, QL TMA [id number] 908.0254 ([facility]) HBV surface Ag SerPl Ql IA See Note (NON-REACTIVE) None Note: [id number] 0NON-REACTIVEResponsible Observer: HBSAG Hepatitis B Surface Antigen [id number] 910.2004 ([facility]) RUBV IgG SerPl IA-aCnc 1.80 None Note: Index Interpretatio n ----- <0.90 Not consistent with Immunity 0.90-0.99 Equivocal > or = 1.00 Consistent with ImmunityThe presence of rubella IgG antibody suggestsimmunization or past or current infection withrubella virus.THIS TEST WAS PERFORMED AT:[facility] [id number] MERATI,MDResponsible Observer: Rubella IgG Ab Rubella IgG Ab [id number] 911.2840 ([facility]) HIV1 Ab SerPlBld Ql IA.rapid See Note None Note: TNPNo Reportable ResultLTNPNo Repo rtable ResultLLEP.LIVENTNPResponsible Observer: HIV 1 AB HIV 1 AB [id number] 908.0250 ([facility]) HBsAg Confirmation See Note None Note: TNPNo Reportable ResultLTNPNo Repo rtable ResultLLEP.LIVENTNPResponsible Observer: HBsAg Confirm HBsAg Confirmation [id number] 910.2006 ([facility]) HIV (1&2) Screen, 4th Gen [...] for this purpose.For additional information please refer tohttp://education.[employer]/faq/CHM017(This link is being provided for informational/educational purposes only.)The performance of this assay has not been clinicallyvalidated in patients less than 2 years old.Responsible Observer: HIV ABS HIV (1&2) Screen, 4th Gen [id number] 908.0228 ([facility]) Reviewed by Maya Barron MD on 05/29; All test results are final unless otherwise noted. Reported Physicians [facility] Ordered by Maya Barron MD on 05/23/2020 Collected: 05/23/2020 Reported: 05/27/2020 20:54 Reported Physicians See Note None Note: Reported Physicians:Ordering: Maya AlvarengaAttending: Maya Barron Reviewed by Maya Barron MD on 05/29; All test results are final unless otherwise noted. HCV RFX ТАТЬЯНА [facility] Ordered by Maya Barron MD on 05/23/2020 Collected: 05/23/2020 Reported: 05/25/2020 17:11 HCV Ab Ser Ql See Note (NON-REACTIVE) None Note: [id number] 7NON-REACTIVEResponsible Observer: HEP C ANTIBODY Hepatitis C Antibody [id number] 914.8305 ([facility]) HCV RNA Qualitative (ТАТЬЯНА) 0.59 (<1.00) None Note: HCV antibody was non-reactive. The re is no laboratoryevidence of HCV infection.In most cases, no further action is required. However,if recent HCV exposure is suspected, a test for HCV RNA(test code 37958) is suggested.For additional information please refer tohttp://education.[employer]/faq/SAU05u3(This link is being provided for informational/educational purposes only.)THIS TEST WAS PERFORMED AT:[facility] [id number] ONEILLesponsible Observer: SIG TO C/O SIGNAL TO CUTOFF [id number] 914.8335 ([facility]) NOTES See Note None Note: Patient Street Address: [facility] [address] City: [place]: [place]: [address] Reviewed by Maya Barron MD on 05/26; All test results are final unless otherwise noted. Reported Physicians [facility] Ordered by Maya Barron MD on 05/23/2020 Collected: 05/23/2020 Reported: 05/25/2020 17:11 Reported Physicians See Note None Note: Reported Physicians:Ordering: Maya AlvarengaAttending: Maya Barron Reviewed by Maya Barron MD on 05/26; All test results are final unless otherwise noted. Type and Screen [facility] Ordered by Maya Barron MD [...] are final unless otherwise noted. Reported Physicians [facility] Ordered by Maya Barron MD on 05/23/2020 Collected: 05/23/2020 Reported: 05/23/2020 19:32 Reported Physicians See Note None Note: Reported Physicians:Ordering: aMya AlvarengaAttending: Maya Barron Reviewed by Maya Barron MD on 05/24; All test results are final unless otherwise noted. PROGESTERONE [facility] Ordered by Maya Barron MD [...] are final unless otherwise noted. Reported Physicians [facility] Ordered by Maya Barron MD on 04/27/2020 Collected: 04/27/2020 Reported: 04/27/2020 15:58 Reported Physicians See Note None Note: Reported Physicians:Ordering: Johnny HernándezAttending: Jos Castellanos To: Rubén Barron To: Cristino Castellanos Reviewed by Maya Barron MD on 04/30; All test results are final unless otherwise noted. BHCG, QUANTITATIVE [facility] Ordered by Maya Barron MD [...] are final unless otherwise noted. Reported Physicians [facility] Ordered by Maya Barron MD on 04/27/2020 Collected: 04/27/2020 Reported: 04/27/2020 14:40 Reported Physicians See Note None Note: Reported Physicians:Ordering: Cristino SnowAttending: Jos Castellanos To: Suzanne Cazares To: Maya Barron Reviewed by Maya Barron MD on 04/30; All test results are final unless otherwise noted. CBC W AUTO DIFF [facility] Ordered by Maya Barron MD [...] Auto See Note (0-2) N (Normal) Note: [id number] Ob fire observer: IG% IG% 100.1375 (B) Hct VFr [...] are final unless otherwise noted. Reported Physicians [facility] Ordered by Maya Barron MD on 04/25/2020 Collected: 04/25/2020 Reported: 04/25/2020 22:11 Reported Physicians See Note None Note: Reported Physicians:Ordering: Aj Ferreiraending: Jos Rivas To: Maya Barron Reviewed by Maya Barron MD on 04/26; All test results are final unless otherwise noted. BHCG, QUANTITATIVE [facility] Ordered by Maya Barron MD [...] are final unless otherwise noted. Reported Physicians [facility] Ordered by Maya Barron MD on 04/25/2020 Collected: 04/25/2020 Reported: 04/25/2020 22:11 Reported Physicians See Note None Note: Reported Physicians:Ordering: Aj Ferreiraending: Jos Rivas To: Maya Barron Reviewed by Maya Barron MD on 04/26; All test results are final unless otherwise noted. Urine culture [facility] Ordered by Maya Barron MD on 04/25/2020 Collected: 04/25/2020 Reported: 04/27/2020 04:50 Bacteria Ur Cult See Note None Note: NGNo growth.L1NG NOTES See Note None Note: @ NICOLE DATE was changed from 04/26 to 04/25/20@ by [facility]. Reviewed by Maya Barron MD on 04/30; All test results are final unless otherwise noted. Reported Physicians [facility] Ordered by Maya Barron MD on 04/25/2020 Collected: 04/25/2020 Reported: 04/27/2020 04:51 Reported Physicians See Note None Note: Reported Physicians:Ordering: Aj Ferreiraending: Jos Rivas To: Maya Barron Reviewed by Maya Barron MD on 04/30; All test results are final unless otherwise noted. ADD ON MICROSCOPIC [facility] Ordered by Maya Barron MD on 04/25/2020 Collected: 04/25/2020 Reported: 04/25/2020 21:54 ADD ON MICROSCOPIC See Note (0-5) None Note: NOTES OTHER/NOT INTERPRETED Bacteria UrnS Ql Micro SMALL AMOUNT Bacteria UrnS Ql Micro SMALL AMOUNT Bacteria UrnS Ql Micro L Bacteria UrnS Ql Micro Bacteria UrnS Ql Micro Bacteria UrnS Ql Micro Bacteria UrnS Ql Micro [id number] Bacteria UrnS Ql Micro Bacteria UrnS Ql [...] are final unless otherwise noted. Reported Physicians [facility] Ordered by Maya Barron MD on 04/25/2020 Collected: 04/25/2020 Reported: 04/25/2020 21:54 Reported Physicians See Note None Note: Reported Physicians:Ordering: Aj Ferreiraending: Jos Rivas To: Maya Barron Reviewed by Maya Barron MD on 04/26; All test results are final unless otherwise noted. URINALYSIS [facility] Ordered by Maya Barron MD on 04/25/2020 Collected: 04/25/2020 Reported: 04/25/2020 21:54 Urobilinogen Ur Ql See Note (0.2-1 EU/dl) None Note: 0.2 EU/dl0.2 EU/[id number] E U/dlResponsible Observer: UROBILINOGEN UROBILINOGEN 300.4500 (C) RBC # Ur Strip NEGATIVE (NEGATIVE) None Note: Responsible Observer: BLOOD BLOOD 300.4650 (C) Prot Ur Ql Strip See Note (NEGATIVE) None Note: [id number] EResponsible Observer: PROTEIN PROTEIN 300.3750 (C) Ketones Ur Ql Strip See Note (NEGATIVE) None Note: [id number] EResponsible Observer: KETONE KETONE 300.3900 (C) Bilirub Ur Ql Strip.auto See Note (NEGATIVE) None Note: [id number] EResponsible Observer: BILIRUBIN BILIRUBIN 300.4550 (C) Glucose Ur Strip.auto-mCnc NEGATIVE (NEGATIVE) None Note: Responsible Observer: GLUCOSE GLUC OSE 300.3850 (C) Appearance Ur See Note (CLEAR) None Note: CLEARCLEARLCLEARResponsible Observ er: APPEARANCE APPEARANCE 300.3400 (A) Color Ur See Note None Note: YELLOWYELLOWLYELLOWResponsible Obs erver: COLOR COLOR 300.3300 (A) Leukocyte esterase Ur Ql Strip See Note (NEGATIVE) None Note: [id number]@DO MICR O!!!!Responsible Observer: LEUKOCYTES LEUKOCYTES 300.3575 (C) Nitrite Ur Ql Strip See Note (NEGATIVE) None Note: [id number] EResponsible Observer: NITRITE NITRITE 300.3650 (B) pH [...] are final unless otherwise noted. Reported Physicians [facility] Ordered by Maya Barron MD on 04/25/2020 Collected: 04/25/2020 Reported: 04/25/2020 21:54 Reported Physicians See Note None Note: Reported Physicians:Ordering: Cristino FerreiraAttending: Jos Rivas To: Maya Barron Reviewed by Maya Barron MD on 04/26; All test results are final unless otherwise noted. BHCG, QUANTITATIVE [facility] Ordered by Maya Barron MD [...] are final unless otherwise noted. Reported Physicians [facility] Ordered by Maya Barron MD on 04/18/2020 Collected: 04/18/2020 Reported: 04/18/2020 15:11 Reported Physicians See Note None Note: Reported Physicians:Ordering: Maya AlvarengaAttending: Maya Barron Reviewed by Maya Barron MD on 04/19; All test results are final unless otherwise noted. ADD ON MICROSCOPIC [facility] Ordered by Maya Barron MD on 04/16/2020 Collected: 04/16/2020 Reported: 04/16/2020 23:51 ADD ON MICROSCOPIC See Note (0-5) None Note: NOTES OTHER/NOT INTERPRETED Bacteria UrnS Ql Micro SMALL AMOUNT Bacteria UrnS Ql Micro SMALL AMOUNT Bacteria UrnS Ql Micro L Bacteria UrnS Ql Micro Bacteria UrnS Ql Micro Bacteria UrnS Ql Micro Bacteria UrnS Ql Micro [id number] Bacteria UrnS Ql Micro Bacteria UrnS Ql [...] are final unless otherwise noted. Reported Physicians [facility] Ordered by Maya Barron MD on 04/16/2020 Collected: 04/16/2020 Reported: 04/16/2020 23:52 Reported Physicians See Note None Note: Reported Physicians:Ordering: Jose E JoseodAttending: Damon VinodCopy To: Maya Barron Reviewed by Maya Barron MD on 04/17; All test results are final unless otherwise noted. UA W/ CULTURE IF ABNORMAL [facility] Ordered by Maya Barron MD on 04/16/2020 Collected: 04/16/2020 Reported: 04/16/2020 23:51 Urobilinogen Ur Ql See Note (0.2-1 EU/dl) None Note: 0.2 EU/dl0.2 EU/[id number] E U/dlResponsible Observer: UROBILINOGEN UROBILINOGEN 300.4500 (C) RBC # Ur Strip NEGATIVE (NEGATIVE) None Note: Responsible Observer: BLOOD BLOOD 300.4652 (C) Prot Ur Ql Strip See Note (NEGATIVE) None Note: [id number] EResponsible Observer: PROTEIN PROTEIN 300.3750 (C) Ketones Ur Ql Strip See Note (NEGATIVE) None Note: [id number] ble Observer: KETONE KETONE 300.3900 (C) Bilirub Ur Ql Strip.auto See Note (NEGATIVE) None Note: [id number] EResponsible Observer: BILIRUBIN BILIRUBIN 300.4550 (C) Glucose Ur Strip.auto-mCnc NEGATIVE (NEGATIVE) None Note: Responsible Observer: GLUCOSE GLUC OSE 300.3850 (C) Appearance Ur See Note (CLEAR) None Note: CLEARCLEARLCLEARResponsible Observ er: APPEARANCE APPEARANCE 300.3400 (A) Color Ur See Note None Note: YELLOWYELLOWLYELLOWResponsible Obs erver: COLOR COLOR 300.3330 (A) Leukocyte esterase Ur Ql Strip See Note (NEGATIVE) None Note: [id number] E@DO MICRO!!!!A Culture has been added to this specimen per established criteriaResponsible Observer: LEUKOCYTES LEUKOCYTES 300.3576 (C) Nitrite Ur Ql Strip See Note (NEGATIVE) None Note: [id number] EResponsible Observer: NITRITE NITRITE 300.3652 (B) pH [...] are final unless otherwise noted. Urine culture [facility] Ordered by Maya Barron MD on 04/16/2020 Collected: 04/16/2020 Reported: 04/18/2020 06:47 Urine culture result See Note None Note: Less than 10,000 CFU/MLNormal Comm ensal FloraProbable contaminants no senst done NOTES See Note None Note: @04/16/20 2351: Urine culture adde d. RFLXG = CULT.ADD. Reviewed by Maya Barron MD on 04/18; All test results are final unless otherwise noted. Reported Physicians [facility] Ordered by Maya Barron MD on 04/16/2020 Collected: 04/16/2020 Reported: 04/18/2020 06:47 Reported Physicians See Note None Note: Reported Physicians:Ordering: Damon , VinodAttending: Damon, VinodCopy To: Maya Barron Reviewed by Maya Barron MD on 04/18; All test results are final unless otherwise noted. CBC W AUTO DIFF [facility] Ordered by Maya Barron MD [...] Auto See Note (0-2) N (Normal) Note: 0.20.2F95666630924.2Responsible Ob fire observer: IG% IG% 100.1375 (B) Hct VFr [...] test results are final unless otherwise noted. [facility], [facility] Ordered by Maya Barron [...] are final unless otherwise noted. Reported Physicians [facility] Ordered by Maya Barron MD on 04/16/2020 Collected: 04/16/2020 Reported: 04/16/2020 22:47 Reported Physicians See Note None Note: Reported Physicians:Ordering: Randy Joseending: Alix Jose To: Maya Barron Reviewed by Maya Barron MD on 04/17; All test results are final unless otherwise noted. CMP [facility] Ordered by Maya Barron MD [...] are final unless otherwise noted. Reported Physicians [facility] Ordered by Maya Barron MD on 04/16/2020 Collected: 04/16/2020 Reported: 04/16/2020 22:44 Reported Physicians See Note None Note: Reported Physicians:Ordering: Jose E JoseodAttending: Jose E JoseodCopyifan To: Maya Barron Reviewed by Maya Barron MD on 04/17; All test results are final unless otherwise noted. LIPASE [facility] Ordered by Maya Barron MD on 04/16/2020 Collected: 04/16/2020 Reported: 04/16/2020 22:44 Lipase SerPl-cCnc 107 enzyme_unit_per_liter (73-393) N (Normal) Note: Responsible Observer: Lipase Lipas e 400.2310 (G) Reviewed by Maya Barron MD on 04/17; All test results are final unless otherwise noted. Reported Physicians [facility] Ordered by Maya Barron MD on 04/16/2020 Collected: 04/16/2020 Reported: 04/16/2020 22:44 Reported Physicians See Note None Note: Reported Physicians:Ordering: Jose E JoseodAttending: Jose E JoseodCopy To: Maya Barron Reviewed by Maya Barron MD on 04/17; All test results are final unless otherwise noted. Type and Screen [facility] Ordered by Maya Barron MD [...] are final unless otherwise noted. Reported Physicians [facility] Ordered by Maya Barron MD on 04/16/2020 Collected: 04/16/2020 Reported: 04/16/2020 23:09 Reported Physicians See Note None Note: Reported Physicians:Ordering: Jose E JoseodAttending: Damon VinodCopy To: Maya Barron Reviewed by Maya Barron MD on 04/17; All test results are final unless otherwise noted. CBC [facility] Ordered by Maya Barron MD on 04/10/2020 [address] [place], [address] Collected: 04/10/2020 Reported: 04/11/2020 11:35 tel : [...] None Note: Responsible Observer: KM Reviewed by Maay Barron MD on 04/12; All test results are final unless otherwise noted. [facility] Ordered by Maya Barron MD on 04/10/[address] [place] [address], [id number] Collected: 04/10/2020 Reported: 04/11/2020 11:35 tel : [...] Ordered by Maya Barron MD on 04/10/[address] [place] [address], [phone] Collected: 04/10/2020 Reported: 04/11/2020 11:35 tel :[phone] ext. 1500 TSH 1.336 uIu/mL (0.5-5.8) None Note: Responsible Observer: AW Reviewed by Maya Barron MD on 04/12; All test results are final unless otherwise noted. -[facility] Ordered by Maya Barron MD on 02/25/2020 Collected: 02/25/2020 Reported: 02/28/2020 15:53 C trach rRNA XXX Ql ТАТЬЯНА+probe See Note (NOT DETECTED) None Note: NOT DETECTEDNOT DETECTEDLNOT DETEC TEDNOT [id number] DETECTEDResponsible Observer: C.Trach RNA Chlamydia trachomatis DNA-ТАТЬЯНА [id number] 913.9900 ([facility]) N gonorrhoea rRNA XXX Ql ТАТЬЯНА+probe See Note (NOT DETECTED) None Note: NOT DETECTEDNOT DETECTEDLNOT DETEC TEDNOT [id number] DETECTEDResponsible Observer: GC RNA Neisseria gonorrhoeae DNA -ТАТЬЯНА [id number] 913.9905 ([facility]) Chlamydia/GC DNA Note SEE NOTE None Note: The analytical performance charact eristics of thisassay, when used to test SurePath(TM) specimens have beendetermined by [employer]. The modifications havenot been cleared or approved by the FDA. This assay hasbeen validated pursuant to the CLIA regulations and isused for clinical purposes.For additional information, please refer tohttps://education.[employer].co.[employer]/faq/EHH494(This link is being provided for information/educational purposes only.)THIS TEST WAS PERFORMED AT:[email or web address] [id number] ONEILLesponsible Observer: GC/Chlam Note Chlamydia/GC DNA Note [id number] 913.9907 (A) NOTES See Note None Note: Source Of Specimen: URINE Reviewed by Maya Barron MD on 02/28; All test results are final unless otherwise noted. Reported Physicians [facility] Ordered by Maya Barron MD on 02/25/2020 Collected: 02/25/2020 Reported: 02/28/2020 15:54 Reported Physicians See Note None Note: Reported Physicians:Ordering: Bia Alvarenga: Maya Barron Reviewed by Maya Barron MD on 02/28; All test results are final unless otherwise noted. Urine culture-[facility] Ordered by Maya Barron MD on 02/25/2020 Collected: 02/25/2020 Reported: 02/26/2020 13:38 Urine culture result No growth None Reviewed by Maya Barron MD on 02/27; All test results are final unless otherwise noted. Reported Physicians [facility] Ordered by Maya Barron MD on 02/25/2020 Collected: 02/25/2020 Reported: 02/26/2020 13:39 Reported Physicians See Note None Note: Reported Physicians:Ordering: Cara Alvarengaending: Maya Barron Reviewed by Maya Barron MD on 02/27; All test results are final unless otherwise noted. Test Office Lab Ordered by Maya Barron MD on 02/25/2020 [address] [place], [address] Specimen Source: Urine Collected: 02/25/2020 Reporte d: 02/25/2020 11:15 tel:[phone] Urine HCG neg (negative) N (Normal) Reviewed by Maya Barron MD on 02/24; All test results are final unless otherwise noted. Urinalysis w/out microscopy Office Lab Ordered by Maya Barron MD on 02/25/2020 [address] [place], [address] Specimen Source: Urine Collected: 02/25/2020 Reporte d: 02/25/2020 11:02 tel:[phone] bilirubin neg (neg) N (Normal) blood neg [...] otherwise noted. UA W/ CULTURE IF ABNORMAL [facility] Ordered by Maya Barron MD on 01/29/2020 Collected: 01/29/2020 Reported: 01/29/2020 00:22 Urobilinogen Ur Ql See Note (0.2-1 EU/dl) None Note: 1 EU/dl1 EU/dlL1 EU/dl1 EU/edV0693 1934852 EU/dlResponsible Observer: UROBILINOGEN UROBILINOGEN 300.4500 (C) RBC # Ur Strip NEGATIVE (NEGATIVE) None Note: Responsible Observer: BLOOD BLOOD 300.4652 (C) Prot Ur Ql Strip See Note (NEGATIVE) None Note: NEGATIVENEGATIVELNEGATIVENEGATIVEL [id number] Observer: PROTEIN PROTEIN 300.3750 (C) Ketones Ur Ql Strip See Note (NEGATIVE) None Note: 15 mg/dL15 mg/dLL15 mg/dL15 mg/dLL [id number] mg/dLResponsible Observer: KETONE KETONE 300.3900 (C) Bilirub Ur Ql Strip.auto See Note (NEGATIVE) None Note: NEGATIVENEGATIVELNEGATIVENEGATIVEL [id number] Observer: BILIRUBIN BILIRUBIN 300.4550 (C) Glucose Ur Strip.auto-mCnc NEGATIVE (NEGATIVE) None Note: Responsible Observer: GLUCOSE GLUC OSE 300.3850 (C) Appearance Ur See Note (CLEAR) None Note: CLEARCLEARLCLEARCLEARLCLEARRespons ible Observer: APPEARANCE APPEARANCE 300.3400 (A) Color Ur See Note None Note: YELLOWYELLOWLYELLOWYELLOWLYELLOWRe sponsible Observer: COLOR COLOR 300.3330 (A) Leukocyte esterase Ur Ql Strip See Note (NEGATIVE) None Note: NEGATIVENEGATIVELNEGATIVENEGATIVEL [id number] Observer: LEUKOCYTES LEUKOCYTES 300.3576 (C) Nitrite Ur Ql Strip See Note (NEGATIVE) None Note: NEGATIVENEGATIVELNEGATIVENEGATIVEL [id number] Observer: NITRITE NITRITE 300.3652 (B) pH Ur [...] are final unless otherwise noted. Reported Physicians [facility] Ordered by Maya Barron MD on 01/29/2020 Collected: 01/29/2020 Reported: 01/29/2020 00:22 Reported Physicians See Note None Note: Reported Physicians:Ordering: Yoli NapolesAttending: Charles Silva To: Maya Barron Reviewed by Maya Barron MD on 01/30; All test results are final unless otherwise noted. BHCG,SERUM QUALITATIVE [facility] Ordered by Maya Barron MD [...] are final unless otherwise noted. Reported Physicians [facility] Ordered by Maya Barron MD on 01/28/2020 Collected: 01/28/2020 Reported: 01/28/2020 22:58 Reported Physicians See Note None Note: Reported Physicians:Ordering: Brook yeung, YoliAttending: Yoli SilvaCopyifan To: Maya Barron Reviewed by Maya Barron MD on 01/30; All test results are final unless otherwise noted. CBC W AUTO DIFF [facility] Ordered by Maya Barron MD [...] Auto See Note (0-2) N (Normal) Note: [id number] ible Observer: IG% IG% 100.1375 (B) Hct [...] are final unless otherwise noted. Reported Physicians [facility] Ordered by Maya Barron MD on 01/28/2020 Collected: 01/28/2020 Reported: 01/28/2020 23:00 Reported Physicians See Note None Note: Reported Physicians:Ordering: Cliff Napolesending: Charles Silva To: Maya Barron Reviewed by Maya Barron MD on 01/30; All test results are final unless otherwise noted. Urinalysis w/out microscopy Office Lab Ordered by Maya Barron MD on [address] [place] [address], [phone] Specimen Source: Urine Collected: Reported: 2020 11:41 [...] Ordered by Maya Barron MD on 12/27/[address] [place] [address], [phone] Specimen Source: Urine Collected: Reported: 2019 13:46 tel:[phone] Urine HCG negative (negative) N (Normal) Reviewed [...] Procedures and Surgical History Includes: Procedures from 12/20/2019 through 12/19/2020 Procedures Code Diagnosis Performing Provider Service Location Service Date REVISIT- office visit KAYLE[facility] 23 weeks gestatio n of Maya Barron MD [facility], [facility] 12/05/2020 REVISIT- office visit K[facility]LE[facility] 22 weeks gestatio n of Maya Barron MD [facility], [facility] 11/28/2020 no charge procedure NC Tension-type headache, unspe cified, intractable Maya Barron MD [facility], [facility] 11/21/2020 REVISIT- office visit K[facility]LEIGH 21 weeks gestatio n of Maya Barron MD [facility], [facility] 11/21/2020 REVISIT- office visit KAYLEIGH 20 weeks gestatio n of Maya Barron MD [facility], [facility] 11/14/2020 no charge procedure NC Palpitations Maya Barron MD [facility], [facility] 11/03/2020 no charge procedure NC Palpitations Maya Barron MD [facility], [facility] 10/31/2020 REVISIT- office visit KAYLEIGH 18 weeks gestatio n of Maya Barron MD [facility], [facility] 10/31/2020 REVISIT- office visit K[facility]LEIGH 17 weeks gestatio n of Maya Barron MD [facility], [facility] 10/24/2020 no charge procedure NC Palpitations Maya Barron MD [facility], [facility] 10/17/2020 REVISIT- office visit KAYLEIGH 16 weeks gestatio n of Maya Barron MD [facility], [facility] 10/17/2020 Holter Monitor, Physician review & interpretation only 05828 Palpitations Michel Villalba MD [facility] 10/11/2020 REVISIT- office visit K[facility]LEIGH 15 weeks gestatio n of Maya Barron MD [facility], [facility] 10/11/2020 REVISIT- office visit K[facility]LE[facility] 13 weeks gestatio n of Maya Barron MD [facility], [facility] 09/27/2020 REVISIT- office visit K[facility]LEIGH 12 weeks gestatio n of Maya Barron MD [facility], [facility] 09/19/2020 EKG- Electrocardiogram/12 lead 13677 Chest pain, unspe cified Cat Gutierrez [facility], [facility] 09/11/2020 REVISIT- office visit [facility]LE[facility] 10 weeks gestatio n of Cat Gutierrez [facility], [facility] 09/05/2020 REVISIT- office visit KAYLEIGH 8 weeks gestation of Maya Barron MD [facility], [facility] 08/22/2020 Urinalysis w/o Microscopy (Distinct Seperate service-same da y) 37487 Frequency of micturition- Urinary Frequency Maya Barron MD [facility], [facility] 08/15/2020 RAPID STREP 33666 Acute pharyngitis, unspecified Maya Barron MD [facility], [facility] 08/15/2020 Initial Obstetrical Care Office Visit OB Le ss than 8 weeks gestation of Cat Gutierrez JHONY [facility], [facility] 021 Urinalysis w/o Microscopy 36909 Frequency of micturiti on- Urinary Frequency Maya Barron MD [facility], [facility] 07/19/2020 REVISIT- office visit [facility]LE[facility] Threatened Alicja Barron MD [facility], [facility] 05/26/2020 NO CHARGE- Nurse visit- OB establish [employer] Thr eatened , state, incidental Maya Barron MD [facility], [facility] 020 General Health Panel( CMP, CBC, TSH) 94069 Dysmenorrhe a, unspecified Maya Barron MD [facility], [facility] 04/10/2020 Venipuncture (routine) 49825 Dysmenorrhea, unspecified Mariela Barron MD [facility], [facility] 04/10/2020 Brief Emotional Behavior Assessment ( add -59 mod) 79373 Screening for Mental Health/Behavioral Disorder, Unspecified Maya Barron MD [facility], [facility] 04/10/2020 Urine Test 19292 Pelvic and perineal pain, Frequency of micturition- Urinary Frequency Maya Barron MD [facility], [facility] 02/25/2020 Urinalysis w/o Microscopy 27204 Frequency of micturiti on- Urinary Frequency Maya Barron MD [facility], [facility] 02/25/2020 Urine Test 42186 Amenorrhea, unspecified Maya Barron MD [facility], [facility] 12/27/2019 Surgical History Last Updated No [...] yrs) 1 04/29/2016 Complete (Reported) Pa kiki Varicella 1 04/18/2000 Complete (Reported) Patient Varicella 2 04/29/2016 Complete (Reported) Patient Allergies Includes: Active, inactive, and resolved Allergies Substance Type Reaction Onset Date - Time Resolved Date - Ti me Status Naproxen Allergy Skin Rashes 02/01/2020 - 12:00AM Act laya Encounters Includes: Encounters from 12/20/2019 through 12/19/2020 Encounter Provider Location Date Check-In Time Check-Out Time D iagnosis telephone conversation Michel Villalba MD 12/14/2020 6:45PM 12/14/2020 11:59PM Hypotension [facility] 12/14/2020 2:14PM 12/14/2020 11:59PM Fracture of Fifth Ce rvical Vertebral Body, History of Psychiatric Disorders, Reactive Airway Disease Problem visit - not contagious Bandar Cleveland PA-C [facility] 12/14/2020 2:08PM 2:52PM Tension-type Headach e REVISIT- Routine (OB) Visit Maya Barron MD [facility], [facility] 12/05/2020 11:17AM 12:08PM REVISIT- Routine (OB) Visit Maya Barron MD [facility], [facility] 11/28/2020 1:34PM 1:51PM Chronic Care Mgt - Office Visit Maya Barron MD [facility], [facility] 11/21/2020 2:10PM 2:35PM Fracture of Fift h Cervical Vertebral Body, History of Psychiatric Disorders, Reactive Airway Disease REVISIT- Routine (OB) Visit Maya Barron MD [facility], [facility] 11/21/2020 11:33AM 12:01PM REVISIT- Routine (OB) Visit Maya Barron MD [facility], [facility] 11/14/2020 9:55AM 10:36AM REVISIT- Routine (OB) Visit Maya Barron MD [facility], [facility] 11/07/2020 11:42AM 12:02PM OB- ILL VISIT Maya Barron MD [facility], [facility] 11/03/2020 3:45PM 4:29PM , Generalized Anxie ty Disorder, Panic Disorder, Chest Pain Chronic Care Mgt - Office Visit Maya Barron MD [facility], [facility] 11/03/2020 2:37PM 3:38PM Chronic Care Mgt - Office Visit Maya Barron MD [facility], [facility] 10/31/2020 3:23PM 3:24PM Fracture of Fift h Cervical Vertebral Body, History of Psychiatric Disorders, Reactive Airway Disease REVISIT- Routine (OB) Visit Maya Barron MD [facility], [facility] 10/31/2020 9:54AM 10:24AM Chronic Care Mgt - Office Visit Maya Barron MD [facility], [facility] 10/24/2020 2:16PM 11:59PM REVISIT- Routine (OB) Visit Maya Barron MD [facility], [facility] 10/24/2020 10:00AM 10:47AM REVISIT- Routine (OB) Visit Maya Barron MD [facility], [facility] 10/17/2020 11:24AM 12:12PM Chronic Care Mgt - Office Visit Maya Barron MD [facility], [facility] 10/17/2020 11:25AM 12:11PM Fracture of Fift h Cervical Vertebral Body, History of Psychiatric Disorders, Reactive Airway Disease REVISIT- Routine (OB) Visit Maya Barron MD [facility], [facility] 10/11/2020 9:44AM 10:15AM OB- ILL VISIT Maya Barron MD [facility], [facility] 10/04/2020 2:12PM 2:31PM Presyncope Syndrome, Tachyca rdia, Palpitations, Difficulty Breathing (Dyspnea), Weeks of Gestation - 14 REVISIT- Routine (OB) Visit Maya Barron MD [facility], [facility] 09/27/2020 1:36PM 1:59PM telephone conversation Michel Villalba MD 09/19/2020 9:43PM 09/19/2020 11:59PM Atypical Chest Pain REVISIT- Routine (OB) Visit Maya Barron MD [facility], [facility] 09/19/2020 9:48AM 10:14AM REVISIT- Routine (OB) Visit Cat Gutierrez [facility], [facility] 09/11/2020 3:22PM 4:16PM REVISIT- Routine (OB) Visit Cat Gutierrez [facility], [facility] 09/05/2020 9:37AM 10:00AM TCMNV phone call- NO CHARGE Cat Gutierrez [facility] 09/04/2020 09/05/2020 4:54PM 09/05/2020 11:59PM [Patient Encounter] Cat Gutierrez [facility] 08/31/2020 021 2:21PM 08/22/2020 11:59PM telephone conversation Michel Villalba MD 08/2808/22/2020 11:00AM 08/22/2020 11:59PM REVISIT- Routine (OB) Visit Maya Barron MD [facility], [facility] 08/22/2020 1:56PM 2:19PM sick visit Maya Barron MD [facility] 08/15/2020 9:36AM 10:12AM Upper Respiratory Infection Acute, Pollakiuria Obstetrics/ first visit Cat Gutierrez [facility], [facility] 08/09/2020 9:22AM 10:56AM followup Cat Gutierrez [facility], [facility] 08/02/2020 10:18AM 11:42AM Generalized Anxiety Disorder , Early Stage, Abdominal Pain telephone conversation Michel Villalba MD 07/26/2020 7:59AM 07/26/2020 11:59PM [Patient Encounter] Cat Gutierrez [facility] 07/28/2020 021 2:20PM 07/26/2020 11:59PM followup Maya Barron MD [facility] 0 07/26/2020 10:39AM 11:02AM , Generalized Anxie ty Disorder sick visit Bandar Cleveland PA-C [facility] 1 3:36PM 4:30PM Pyrexia followup Maya Barron MD [facility] 0 07/19/2020 10:52AM 11:30AM , Generalized Anxie ty Disorder, Pollakiuria followup Maya Barron MD [facility] 1 09/11/2019 10:43AM 11:14AM Atypical Chest Pain, Adjustm ent Disorder followup Maya Barron MD [facility] 1 08/07/2019 10:43AM 10:59AM Missed followup Maya Barron MD [facility] 05/26 1:45PM 2:11PM with Threatened Problem visit - not contagious Maya Barron MD [facility] 05/24/2020 11:13AM 12:00PM with T hreatened [Patient Encounter] Maya Barron MD 05/24/2020 020 10:17AM 04/19/2020 11:59PM followup Maya Barron MD [facility] 1 11:51AM 12:08PM ANNUAL PE-followup Maya Barron MD [facility] 04/10/2020 8:42AM 9:13AM Routine History and Physical Adult (18 - 64 Yrs), Dysmenorrhea sick visit Maya Barron MD [facility] 0 03/06/2020 3:32PM 3:42PM Sinusitis sick visit Maya Barron MD [facility] 0 02/25/2020 10:46AM 11:12AM Pollakiuria, Female Pelvic P ain followup Maya Barron MD [facility] 01/31 2:25PM 2:51PM Back Strain followup Maya Barron MD [facility] 12/26 1:25PM 1:42PM Amenorrhea, Clostridium Difficile Insurance Includes: Active Insurance Policies Plan Name Member ID Group # Subscriber Relationship Effective Da greg 1 - MANAGED MEDICAID [facility] [id number] Georgiana Nguyen 2020 - Unknown Advance Directives Includes: Current Advance DirectivesNo Advance Directives Recorded Health Concerns Includes: Active Health ConcernsNo Active Health Concerns Recorded Goals Includes: Active GoalsNo Active Goals Recorded Interventions Includes: Interventions for active GoalsNo Interventions Recorded Evaluations & Outcomes Includes: Evaluations & Outcomes for active GoalsNo Outcomes Recorded
--- OUTSIDE RECORDS SUMMARY | 2021-04-29 16:53 | CCD ---
Author Author [facility] Organization [facility] Address [address] [place] [address] Phone Care Team Providers Care Ems Driver Name Role Phone Anderson GILL, Maya Duke PP [phone] Christopher BLANCHARD, Kimberly Prajapati Unavailable Unavailable Reason [...] Provider REVISIT- Routine (OB) [facility] (OB[facility] Visit 01/09/2021 10[facility] (OB) Visit 01/16/2021 10:00AM [facility], SOLE Barron MD REVISIT- Routine (OB) Visit 01/23/2021 10:00AM [facility], SOLE Barron MD REVISIT- Routine (OB) Visit 01/30/2021 10:00AM [facility], SOLE Barron MD REVISIT- Routine (OB) Visit 02/06/2021 10:00AM [facility], SOLE Barron MD REVISIT- Routine (OB) Visit 02/13/2021 10:00AM [facility], SOLE Barron MD REVISIT- Routine (OB) Visit 02/20/2021 11:45AM [facility], SOLE Barron MD REVISIT- Routine (OB) Visit 02/27/2021 10:00AM [facility], SOLE Barron MD REVISIT- Routine (OB) Visit 03/06/2021 10:00AM [facility], SOLE Barron MD REVISIT- Routine (OB) Visit 03/13/2021 10:00AM [facility], SOLE Barron MD REVISIT- Routine (OB) Visit 03/20/2021 10:00AM [facility], SOLE Barron MD REVISIT- Routine (OB) Visit 03/27/2021 10:00AM [facility], SOLE Barron MD Findings Encounter Date [...] conversatio n with Maya Barron MD 12/19/2020 Reactive airway disease telephone conversation [...] [Tachycardia, unspecified] OB- ILL VISIT with Trinity aBrron MD 10/04/2020 Weeks of gestation - 14 [...] history and physical (17 - 63 yrs) RECORDING [employer] care with women's health, MED on health maintenance. Patient now 20 and [...] MD 12/27/2019 Abdominal pain which is worsening Diane landaverde suspicion for acute appendicitis, patient sent [...] MD 11/15/2019 Atopic dermatitis sick visit with [facility] 10/13 Benign pigmented nevus sick visit with [facility] 0 08/31/2019 Female pelvic pain sick visit with [facility] 08/14 Pharyngitis urgent visit with Linda Smith [facility] 08/07 Nail disorders in diseases classifed [...] history and physical (17 - 63 yrs) RECORDING STUDIO INTERNSH[employer] care with women's [facility], MED on health maintenance [Encounter for general adult medical examination with abnormal findings] ANNUAL PE-followup exam with Maya Barron MD 04/07/2019 Vaginal candidiasis sick visit with [facility] 02/11 Pharyngitis urgent visit with Bandar Cleveland PA-C 2018 Sprained ribs ; left sick visit with [facility] Strain of muscle and tendon of front wall of thorax si ck visit with [facility] 10/30/2018 Fracture of fifth cervical vertebral body No Fault with [facility] 03/04/2018 Late effects of accident No Fault with [facility] 0 03/04/2018 Instructions Instructions not [...] Oral Tablet 0 - 03/13/2020 Provider: Maya Barorn MD Diagnosis: 1 PO BID Cyclobenzaprine HCl [...] Results from 12/20/2019 through 12/19/2020 LIPASE SERUM [facility] Ordered by Maya Barron MD on 12/16/2020 Collected: 12/16/2020 Reported: 12/16/2020 16:29 LIPASE 27 U/L (13 - 60) None Note: Responsible Observer: (ABIOLA) Reviewed by Maya Barron MD on 12/18; All test results are final unless otherwise noted. Reported Physicians [facility] Ordered by Maya Barron MD on 12/16/2020 Collected: 12/16/2020 Reported: 12/16/2020 16:29 Reported Physicians See Note None Note: Reported Physicians:Ordering: Sunshine ALONSOending: ALLYN PAPPASConsulting: Rubén BARRON To: Miguel Gonsalez To: ALLYN PAPPAS Reviewed by Maya Barron MD on 12/18; All test results are final unless otherwise noted. PT/PTT [facility] Ordered by Maya Barron [...] are final unless otherwise noted. Reported Physicians [facility] Ordered by Maya Barron MD on 12/16/2020 Collected: 12/16/2020 Reported: 12/16/2020 16:30 Reported Physicians See Note None Note: Reported Physicians:Ordering: Sunshine ALONSOending: ALLYN PAPPASConsulting: Rubén BARRON To: Miguel Gonsalez To: ALLYN PAPPAS Reviewed by Maya Barron MD on 12/18; All test results are final unless otherwise noted. CBC W/AUTOMATED DIFF [facility] Ordered by Maya Barron [...] are final unless otherwise noted. Reported Physicians [facility] Ordered by Maya Barron MD on 12/16/2020 Collected: 12/16/2020 Reported: 12/16/2020 16:00 Reported Physicians See Note None Note: Reported Physicians:Ordering: Sunshine ALONSOending: ALLYN PAPPASConsulting: Rubén BARRON To: Miguel Gonsalez To: ALLYN PAPPAS Reviewed by Maya Barron MD on 12/18; All test results are final unless otherwise noted. COMPREHENSIVE METABOLIC PANEL [facility] Ordered by Maya Barron MD [...] are final unless otherwise noted. Reported Physicians [facility] Ordered by Maya Barron MD on 12/16/2020 Collected: 12/16/2020 Reported: 12/16/2020 16:30 Reported Physicians See Note None Note: Reported Physicians:Ordering: VENUS ALONSOAttending: ALLYN PAPPASConsulting: Rubén BARRON To: Miguel Gonsalez To: ALLYN PAPPAS Reviewed by Maya Barron MD on 12/18; All test results are final unless otherwise noted. TROPONIN T [facility] Ordered by Maya Barron MD on 12/16/2020 Collected: 12/16/2020 Reported: 12/16/2020 16:30 TROPONIN T <0.01 NG/ML (0.00 - 0.10) None Note: TROPONIN T0.1 ng/ml Recommended as the clinical threshold value forTroponin T.Responsible Observer: (ABIOLA) Reviewed by Maya Barron MD on 12/18; All test results are final unless otherwise noted. Reported Physicians [facility] Ordered by Maya Barron MD on 12/16/2020 Collected: 12/16/2020 Reported: 12/16/2020 16:30 Reported Physicians See Note None Note: Reported Physicians:Ordering: RAVI ALONSODEAttending: ALLYN PAPPASConsulting: Rubén BARRON To: Miguel Gonsalez To: ALLYN PAPPAS Reviewed by Maya Barron MD on 12/18; All test results are final unless otherwise noted. TSH HIGHLY SENSITIVE [facility] Ordered by Maya Barron MD on 12/16/2020 Collected: 12/16/2020 Reported: 12/16/2020 17:28 TSH 1.41 uIU/mL (0.47 - 5.01) None Note: Responsible Observer: (DW) Reviewed by Maya Barron MD on 12/18; All test results are final unless otherwise noted. Reported Physicians [facility] Ordered by Maya Barron MD on 12/16/2020 Collected: 12/16/2020 Reported: 12/16/2020 17:28 Reported Physicians See Note None Note: Reported Physicians:Ordering: Sunshine ALONSOending: ALLYN PAPPASConsulting: Rubén BARRON To: Miguel Gonsalez To: ALLYN PAPPAS Reviewed by Maya Barron MD on 12/18; All test results are final unless otherwise noted. TSH [facility] Ordered by Maya Barron MD on 12/13/2020 Collected: 12/13/2020 Reported: 12/13/2020 19:02 TSH SerPl DL<=0.005 mIU/L-aCnc 1.02 MicroInternationalUnitsPerMilliLiter_[Arbitrary_Con (0.35-5. 50) N (Normal) Note: Responsible Observer: TSH TSH 600 .7055 (D) Reviewed by Maya Barron MD on 12/15; All test results are final unless otherwise noted. Reported Physicians [facility] Ordered by Maya Barron MD on 12/13/2020 Collected: 12/13/2020 Reported: 12/13/2020 19:02 Reported Physicians See Note None Note: Reported Physicians:Ordering: Conchis Omerending: Kevin Orozco To: Maya Barron Reviewed by Maya Barron MD on 12/15; All test results are final unless otherwise noted. CBC W AUTO DIFF [facility] Ordered by Maya Barron MD on [...] Auto See Note (0-2) N (Normal) Note: [id number] Ob subpoena server: IG% IG% 100.1375 (B) Hct VFr [...] results are final unless otherwise noted. PT/PTT [facility] Ordered by Maya Barron MD on [...] results are final unless otherwise noted. CMP [facility] Ordered by Maya Barron MD on [...] are final unless otherwise noted. Reported Physicians [facility] Ordered by Maya Barron MD on 12/13/2020 Collected: 12/13/2020 Reported: 12/13/2020 19:02 Reported Physicians See Note None Note: Reported Physicians:Ordering: Edgar Omerttending: Kevin Orozco To: Maya Barron Reviewed by Maya Barron MD on 12/15; All test results are final unless otherwise noted. TROPONIN [facility] Ordered by Maya Barron MD on [...] are final unless otherwise noted. Reported Physicians [facility] Ordered by Maya Barron MD on 12/13/2020 Collected: 12/13/2020 Reported: 12/13/2020 19:02 Reported Physicians See Note None Note: Reported Physicians:Ordering: Edgar Omerttending: Kevin Orozco To: Maya Barron Reviewed by Maya Barron MD on 12/15; All test results are final unless otherwise noted. ADD ON MICROSCOPIC [facility] Ordered by Maya Barron MD on 12/13/2020 Collected: 12/13/2020 Reported: 12/13/2020 18:32 ADD ON MICROSCOPIC See Note (0-5) None Note: NOTES OTHER/NOT INTERPRETED Bacteria UrnS Ql Micro MODERATE AMOUNT Bacteria UrnS Ql Micro MODERATE AMOUNT Bacteria UrnS Ql Micro L Bacteria UrnS Ql Micro Bacteria UrnS Ql Micro Bacteria UrnS Ql Micro Bacteria UrnS Ql Micro [id number] Bacteria UrnS Ql Micro Bacteria UrnS Ql [...] 1826: UA W/ MICRO added. RFLXG = [facility] CIF.Method of Collection:: VoidedResponsible Observer: RBC RBC 300.4900 (A) Reviewed by Maya Barron MD on 12/15; All test results are final unless otherwise noted. Reported Physicians [facility] Ordered by Maya Barron MD on 12/13/2020 Collected: 12/13/2020 Reported: 12/13/2020 18:33 Reported Physicians See Note None Note: Reported Physicians:Ordering: Conchis Omerending: Kevin Orozco To: Maya Barron Reviewed by Maya Barron MD on 12/15; All test results are final unless otherwise noted. UA W/ CULTURE IF ABNORMAL [facility] Ordered by Maya Barron MD on 12/13/2020 Collected: 12/13/2020 Reported: 12/13/2020 18:32 Urobilinogen Ur Ql See Note (0.2-1 EU/dl) None Note: 0.2 EU/dl0.2 EU/[id number] E U/dlResponsible Observer: UROBILINOGEN UROBILINOGEN 300.4500 (C) RBC # Ur Strip NEGATIVE (NEGATIVE) None Note: Responsible Observer: BLOOD BLOOD 300.4652 (C) Prot Ur Ql Strip See Note (NEGATIVE) None Note: [id number] EResponsible Observer: PROTEIN PROTEIN 300.3750 (C) Ketones Ur Ql Strip See Note (NEGATIVE) None Note: [id number] EResponsible Observer: KETONE KETONE 300.3900 (C) Bilirub Ur Ql Strip.auto See Note (NEGATIVE) None Note: [id number] EResponsible Observer: BILIRUBIN BILIRUBIN 300.4550 (C) Glucose Ur Strip.auto-mCnc NEGATIVE (NEGATIVE) None Note: Responsible Observer: GLUCOSE GLUC OSE 300.3850 (C) Appearance Ur See Note (CLEAR) None Note: CLEARCLEARLCLEARResponsible Observ er: APPEARANCE APPEARANCE 300.3400 (A) Color Ur See Note None Note: YELLOWYELLOWLYELLOWResponsible Obs erver: COLOR COLOR 300.3330 (A) Leukocyte esterase Ur Ql Strip See Note (NEGATIVE) None Note: [id number]@DO MICR O!!!!A Culture has been added to this specimen per established criteriaResponsible Observer: LEUKOCYTES LEUKOCYTES 300.3576 (C) Nitrite Ur Ql Strip See Note (NEGATIVE) None Note: [id number] EResponsible Observer: NITRITE NITRITE 300.3652 (B) pH [...] are final unless otherwise noted. Urine culture [facility] Ordered by Maya Barron MD on 12/13/2020 Collected: 12/13/2020 Reported: 12/14/2020 13:24 Bacteria Ur Cult See Note None Note: NGNo growth.L1NG NOTES See Note None Note: @12/13/20 1832: Urine culture flavia escoto. RFLXG = CULT.ADD. Reviewed by Maya Barron MD on 12/15; All test results are final unless otherwise noted. Reported Physicians [facility] Ordered by Maya Barron MD on 12/13/2020 Collected: 12/13/2020 Reported: 12/14/2020 13:24 Reported Physicians See Note None Note: Reported Physicians:Ordering: Conchis Omerending: Kevin Orozco To: Maya Barron Reviewed by Maya Barron MD on 12/15; All test results are final unless otherwise noted. TROPONIN T [facility] Ordered by Maya Barron MD on 12/09/2020 Collected: 12/09/2020 Reported: 12/09/2020 01:32 TROPONIN T <0.01 NG/ML (0.00 - 0.10) None Note: TROPONIN T0.1 ng/ml Recommended as the clinical threshold value forTroponin T.Responsible Observer: (AB) Reviewed by Maya Barron MD on 12/12; All test results are final unless otherwise noted. Reported Physicians [facility] Ordered by Maya Barron MD on 12/09/2020 Collected: 12/09/2020 Reported: 12/09/2020 01:32 Reported Physicians See Note None Note: Reported Physicians:Ordering: MARQUISE TOMLINSON CAttending: MARQUISE SOTOConsulting: Rubén BARRON To: Clare SOTO To: MARQUISE SOTO Reviewed by aMya Barron MD on 12/12; All test results are final unless otherwise noted. TROPONIN T [facility] Ordered by Maya Barron MD on 12/08/2020 Collected: 12/08/2020 Reported: 12/08/2020 22:36 TROPONIN T <0.01 NG/ML (0.00 - 0.10) None Note: TROPONIN T0.1 ng/ml Recommended as the clinical threshold value forTroponin T.Responsible Observer: (AB) Reviewed by Maya Barron MD on 12/12; All test results are final unless otherwise noted. Reported Physicians [facility] Ordered by Maya Barron MD on 12/08/2020 Collected: 12/08/2020 Reported: 12/08/2020 22:36 Reported Physicians See Note None Note: Reported Physicians:Ordering: MARQUISE TOMLINSON CAttending: MARQUISE SOTOConsulting: MAYA BARRONCopyifan To: MARQUISE SOTOCopyifan To: MARQUISE SOTO Reviewed by Maya Barron MD on 12/12; All test results are final unless otherwise noted. COMPREHENSIVE METABOLIC PANEL [facility] Ordered by Maya Barron MD [...] are final unless otherwise noted. Reported Physicians [facility] Ordered by Maya Barron MD on 12/08/2020 Collected: 12/08/2020 Reported: 12/08/2020 22:36 Reported Physicians See Note None Note: Reported Physicians:Ordering: MARQUISE TOMLINSON CAttending: MARQUISE SOTOConsulting: MAYA BARRONCopyifan To: MARUQISE SOTOCopyifan To: MARQUISE SOTO Reviewed by Maya Barron MD on 12/12; All test results are final unless otherwise noted. LIPASE SERUM [facility] Ordered by Maya Barron MD on 12/08/2020 Collected: 12/08/2020 Reported: 12/08/2020 22:32 LIPASE 33 U/L (13 - 60) None Note: Responsible Observer: (AB) Reviewed by Maya Barron MD on 12/12; All test results are final unless otherwise noted. Reported Physicians [facility] Ordered by Maya Barron MD on 12/08/2020 Collected: 12/08/2020 Reported: 12/08/2020 22:32 Reported Physicians See Note None Note: Reported Physicians:Ordering: MARQUISE TOMLINSON CAttending: MARQUISE SOTOConsulting: Rubén BARRON To: MARQUISE SOTOCopyifan To: MARQUISE SOTO Reviewed by Maya Barron MD on 12/12; All test results are final unless otherwise noted. CBC W AUTO DIFF [facility] Ordered by Maya Barron MD on [...] Auto See Note (0-2) N (Normal) Note: [id number] Ob subpoena server: IG% IG% 100.1375 (B) Hct VFr [...] results are final unless otherwise noted. [facility] Ordered by Maya Barron MD [...] results are final unless otherwise noted. D-DIMER [facility] Ordered by Maya Barron MD on [...] are final unless otherwise noted. Reported Physicians [facility] Ordered by Maya Barron MD on 12/01/2020 Collected: 12/01/2020 Reported: 12/01/2020 18:19 Reported Physicians See Note None Note: Reported Physicians:Ordering: Choco KaurAttending: Choco PardoCopyifan To: Maya Barron Reviewed by Maya Barron MD on 12/04; All test results are final unless otherwise noted. TROPONIN [facility] Ordered by Maya Barron MD on [...] are final unless otherwise noted. Reported Physicians [facility] Ordered by Maya Barron MD on 12/01/2020 Collected: 12/01/2020 Reported: 12/01/2020 18:19 Reported Physicians See Note None Note: Reported Physicians:Ordering: Sara Kaurending: Adam Pardo To: Maya Barron Reviewed by Maya Barron MD on 12/04; All test results are final unless otherwise noted. Cepheid CT/NG RT-PCR [facility] Ordered by Maya Barron MD on [...] may result in failure to detect the targetorganisms.26746-4P trach DNA Vag Ql ТАТЬЯНА+probeLNCHLAMNC. trachomatis NOT [id number]. trachomatis NOT [id number] gonorrhoea rRNA Vag Ql ТАТЬЯНА+probeLNNEIGNN.gonorrhoeae NOT [id number].gonorrhoeae NOT DETECTED Reviewed by Maya Barron MD on 11/29; All test results are final unless otherwise noted. Reported Physicians [facility] Ordered by Maya Barron MD on 11/29/2020 Collected: 11/29/2020 Reported: 11/29/2020 07:03 Reported Physicians See Note None Note: Reported Physicians:Ordering: Estela SamuelAttending: Vianey Up To: Maya Barron Reviewed by Maya Barron MD on 11/29; All test results are final unless otherwise noted. AFFIRM [facility] Ordered by Maya Barron MD on 11/29/2020 Collected: 11/29/2020 Reported: 11/30/2020 13:21 Dionna species DNA Probe NOT DETECTED (NOT DETECTED) None Note: THIS TEST WAS PERFORMED AT:[facility] [id number] MERATI,CLAUDYesponsible Observer: Dionna DNA Dionna species DNA Probe [id number] 913.2350 ([facility]) Gardnerella DNA Probe DETECTED (NOT DETECTED) H (High) Note: Increased levels of G. vaginalis m ay not be significantin the absence of signs and symptoms of bacterialvaginosis.Responsible Observer: Gardnerella DNA Gardnerella DNA Probe [id number] 913.2345 ([facility]) Trichomonas DNA Probe NOT DETECTED (NOT DETECTED) None Note: Responsible Observer: Trichomonas DNA Trichomonas DNA Probe [id number] 913.2340 ([facility]) Reviewed by Maya Barron MD on 12/01; All test results are final unless otherwise noted. Reported Physicians [facility] Ordered by Maya Barron MD on 11/29/2020 Collected: 11/29/2020 Reported: 11/30/2020 13:21 Reported Physicians See Note None Note: Reported Physicians:Ordering: Estela SamuelAttending: Vianey Up To: Maya Barron Reviewed by Maya Barron MD on 12/01; All test results are final unless otherwise noted. UA W/ CULTURE IF ABNORMAL [facility] Ordered by Maya Barron MD on 11/29/2020 Collected: 11/29/2020 Reported: 11/29/2020 04:49 Urobilinogen Ur Ql See Note (0.2-1 EU/dl) None Note: 0.2 EU/dl0.2 EU/[id number] E U/dlResponsible Observer: UROBILINOGEN UROBILINOGEN 300.4500 (C) RBC # Ur Strip NEGATIVE (NEGATIVE) None Note: Responsible Observer: BLOOD BLOOD 300.4652 (C) Prot Ur Ql Strip See Note (NEGATIVE) None Note: [id number] EResponsible Observer: PROTEIN PROTEIN 300.3750 (C) Ketones Ur Ql Strip See Note (NEGATIVE) None Note: [id number] EResponsible Observer: KETONE KETONE 300.3900 (C) Bilirub Ur Ql Strip.auto See Note (NEGATIVE) None Note: [id number] EResponsible Observer: BILIRUBIN BILIRUBIN 300.4550 (C) Glucose Ur Strip.auto-mCnc NEGATIVE (NEGATIVE) None Note: Responsible Observer: GLUCOSE GLUC OSE 300.3850 (C) Appearance Ur See Note (CLEAR) None Note: CLEARCLEARLCLEARResponsible Observ er: APPEARANCE APPEARANCE 300.3400 (A) Color Ur See Note None Note: YELLOWYELLOWLYELLOWResponsible Obs erver: COLOR COLOR 300.3330 (A) Leukocyte esterase Ur Ql Strip See Note (NEGATIVE) None Note: [id number]@DO MICR O!!!!A Culture has been added to this specimen per established criteriaResponsible Observer: LEUKOCYTES LEUKOCYTES 300.3576 (C) Nitrite Ur Ql Strip See Note (NEGATIVE) None Note: [id number] EResponsible Observer: NITRITE NITRITE 300.3652 (B) pH [...] are final unless otherwise noted. Urine culture [facility] Ordered by Maya Barron MD on 11/29/2020 Collected: 11/29/2020 Reported: 11/30/2020 07:23 Bacteria Ur Cult See Note None Note: NGNo growth.L1NG NOTES See Note None Note: @11/29/20 0450: Urine culture adde d. RFLXG = CULT.ADD. Reviewed by Maya Barron MD on 12/01; All test results are final unless otherwise noted. Reported Physicians [facility] Ordered by Maya Barron MD on 11/29/2020 Collected: 11/29/2020 Reported: 11/30/2020 07:23 Reported Physicians See Note None Note: Reported Physicians:Ordering: Estela SamuelAttending: Vianey Up To: Maya Barron Reviewed by Maya Barron MD on 12/01; All test results are final unless otherwise noted. ADD ON MICROSCOPIC [facility] Ordered by Maya Barron MD on [...] are final unless otherwise noted. Reported Physicians [facility] Ordered by Maya Barron MD on 11/29/2020 Collected: 11/29/2020 Reported: 11/29/2020 04:51 Reported Physicians See Note None Note: Reported Physicians:Ordering: Estela SamuelAttending: Vianey Up To: Maya Barron Reviewed by Maya Barron MD on 11/29; All test results are final unless otherwise noted. TROPONIN [facility] Ordered by Maya Barron MD on [...] are final unless otherwise noted. Reported Physicians [facility] Ordered by Maya Barron MD on 11/20/2020 Collected: 11/20/2020 Reported: 11/20/2020 20:05 Reported Physicians See Note None Note: Reported Physicians:Ordering: Les Vanegastending: Fady Raza To: Maya Barron Reviewed by Maya Barron MD on 11/22; All test results are final unless otherwise noted. Cepheid SARS/FLU/RSV RT-PCR [facility] Ordered by Maya Barron MD on [...] by FDA under an EUA for use byADEA [id number]-ukq CoV RNA Resp Ql ТАТЬЯНА+yktvrLEEVZUXXUWO-JEI-8 NOT [id number]-PIP-0 NOT [id number] RNA Resp Ql ТАТЬЯНА+probeLNNFLUAInfluenza A Not Det [id number] A Not Zwrwswsf40532-5KABHL RNA Resp Ql ТАТЬЯНА+probeLNNINBInfluenza B Not [id number] B Not Jasmumvl87874- 2RSV RNA Resp Ql ТАТЬЯНА+probeLNNRSVRSV Not [id number] Not Detected Reviewed by Maya Barron MD on 11/20; All test results are final unless otherwise noted. Reported Physicians [facility] Ordered by Maya Barron MD on 11/18/2020 Collected: 11/18/2020 Reported: 11/18/2020 23:58 Reported Physicians See Note None Note: Reported Physicians:Ordering: Aj Snowending: Jos Castellanos To: Maya Barron Reviewed by Maya Barron MD on 11/20; All test results are final unless otherwise noted. URINE DRUG SCREEN -([facility]) [facility] Ordered by Maya Barron MD on 11/17/2020 Collected: 11/17/2020 Reported: 11/17/2020 14:19 PCP Ur Ql Scn>25 ng/mL See Note (Cutoff 25) None Note: [id number] E@Reenter manual test result: NEGATIVE@by Claudia Tello at 11/17/20 1414.Responsible Observer: PCP Urine Phencyclidine (PCP) Scrn 400.5120 (A) THC Ur Ql Scn>50 ng/mL See Note (Cutoff 50) None Note: [id number] EResponsible Observer: Marijuana (THC) Ur Marijuana (THC) Screen 400.5110 (A) Benzodiaz Ur Ql Scn See Note (Cutoff 150) None Note: [id number] E@Reenter manual test result: NEGATIVE@by Claudia Tello at 11/17/20 1418.Responsible Observer: Benzodiazepines Urine Benzodiazepines Screen 400.5170 (A) Opiates Ur Ql Scn See Note (Cutoff 100) None Note: [id number] E@Reenter manual test result: NEGATIVE@by Claudia Tello at 11/17/20 1418.Responsible Observer: Opiates Urine Opiates Screen 400.5150 (A) Tricyclics Ur Ql Scn See Note (Cutoff 300) None Note: [id number] E@Reenter manual test result: NEGATIVE@by Claudia Tello at 11/17/20 1418.Responsible Observer: TCA Ur Tricyclic Antidepressants 400.5180 (A) Cocaine Ur Ql Scn See Note (Cutoff 150) None Note: [id number] E@Reenter manual test result: NEGATIVE@by Claudia Tello at 11/17/20 1417.Responsible Observer: Cocaine Urine Cocaine Screen 400.5130 (A) Propoxyph+Nor Ur Ql Scn See Note (Cutoff 300) None Note: [id number] E@Reenter manual test result: NEGATIVE@by Claudia Tello at 11/17/20 1418.Responsible Observer: Propoxyphene Urine Propoxyphene Screen 400.5220 (A) Methadone Ur Ql Scn See Note (Cutoff 200) None Note: [id number] E@Reenter manual test result: NEGATIVE@by Claudia Tello at 11/17/20 1418.Responsible Observer: Methadone Urine Methadone Screen 400.5190 (A) Methamphet Ur Ql Scn See Note (Cutoff 500) None Note: [id number] E@Reenter manual test result: NEGATIVE@by Claudia Tello at 11/17/20 1417.Responsible Observer: Methamphetamine Urine Methamphetamines Screen 400.5140 (A) oxyCODONE Ur Ql Scn See Note (Cutoff 100) None Note: [id number] E@Reenter manual test result: NEGATIVE@by Claudia Tello at 11/17/20 1418.Responsible Observer: Oxycodone Urine Oxycodone Screen 400.5210 (A) Buprenorphine Ur Ql See Note (Cutoff 10) None Note: [id number] E@Reenter manual test result: NEGATIVE@by Claudia Tello at 11/17/20 1419.Responsible Observer: Buprenorphine Urine Buprenorphine Screen 400.5230 (A) Amphetamines Ur Ql Scn>500 ng/mL See Note (Cutoff 500) None Note: [id number] E@Reenter manual test result: NEGATIVE@by Claudia Tello at 11/17/20 1418.Responsible Observer: Amphetamines Urine Amphetamines Screen 400.5160 (A) Barbiturates Ur Ql Scn>200 ng/mL See Note (Cutoff 200) None Note: [id number] E@Reenter manual test result: NEGATIVE@by Claudia Tello at 11/17/20 1418.Responsible Observer: Barbiturates Urine Barbiturates 400.5200 (A) Reviewed by Maya Barron MD on 11/20; All test results are final unless otherwise noted. FREE T4 (LAB) [facility] Ordered by Maya Barron MD on 11/17/2020 Collected: 11/17/2020 Reported: 11/17/2020 14:34 T4 Free SerPl-mCnc 0.78 NanoGramsPerDeciLiter_[Mass_Concentration_Units] (0.89-1.76) L (Low) Note: Responsible Observer: FREE T4 Free Thyroxine 600.7005 (D) Reviewed by Maya Barron MD on 11/20; All test results are final unless otherwise noted. Reported Physicians [facility] Ordered by Maya Barron MD on 11/17/2020 Collected: 11/17/2020 Reported: 11/17/2020 14:34 Reported Physicians See Note None Note: Reported Physicians:Ordering: Maya AlvarengaAttending: Maya Barron Reviewed by Maya Barron MD on 11/20; All test results are final unless otherwise noted. TSH [facility] Ordered by Maya Barron MD on 11/17/2020 Collected: 11/17/2020 Reported: 11/17/2020 14:34 TSH SerPl DL<=0.005 mIU/L-aCnc 1.38 MicroInternationalUnitsPerMilliLiter_[Arbitrary_Con (0.35-5. 50) N (Normal) Note: Responsible Observer: TSH TSH 600 .7055 (D) Reviewed by Maya Barron MD on 11/20; All test results are final unless otherwise noted. Reported Physicians [facility] Ordered by Maya Barron MD on 11/17/2020 Collected: 11/17/2020 Reported: 11/17/2020 14:34 Reported Physicians See Note None Note: Reported Physicians:Ordering: Maya AlvarengaAttending: Maya Barron Reviewed by Maya Barron MD on 11/20; All test results are final unless otherwise noted. IRON [facility] Ordered by Maya Barron MD on 11/17/2020 Collected: 11/17/2020 Reported: 11/17/2020 14:34 Iron SerPl-mCnc 39 (50-170) L (Low) Note: Iron values may be falsely elevate d in serum samples frompatients treated with anticoagulants (e.g., hemodialysispatients)Responsible Observer: Iron Level Iron Level 400.9002 (A) Reviewed by Maya Barron MD on 11/20; All test results are final unless otherwise noted. Reported Physicians [facility] Ordered by Maya Barron MD on 11/17/2020 Collected: 11/17/2020 Reported: 11/17/2020 14:34 Reported Physicians See Note None Note: Reported Physicians:Ordering: Maya AlvarengaAttending: Maya Barron Reviewed by Maya Barron MD on 11/20; All test results are final unless otherwise noted. CBC W AUTO DIFF [facility] Ordered by Maya Barron MD on [...] Auto See Note (0-2) N (Normal) Note: [id number] Ob subpoena server: IG% IG% 100.1375 (B) Hct VFr [...] results are final unless otherwise noted. HA1C [facility] Ordered by Maya Barron MD on [...] area.Responsible Observer: HGBA1C % Hemoglobin A1c % 1999.0004 (D) Est. average glucose Bld gHb Est-sCnc 85 MilliGramsPerDeciLiter_[Mass_Concentration_Units] None Note: An A1C of 7% - the goal of diabeti c therapy - is equivalentto an EAG of 154 mg/dl.Responsible Observer: eAG Estimated Average Glucose -eAG 1999.0020 (A) Reviewed by Maya Barron MD on 11/20; All test results are final unless otherwise noted. [facility] Ordered by Maya Barron MD [...] final unless otherwise noted. Vitamin D 25-OH [facility] Ordered by Maya Barron MD on [...] VIT D, (D2,D3), LC/MS/MS is recommended: ordercode 55341 (patients >2yrs).See Note 1Note 1For additional information, please refer tohttp://education.[employer]/faq/ONI522(This link is being provided for informational/educational purposes only.)THIS TEST WAS PERFORMED AT:[facility] [address]CLAUDY ONEILLesponsible Observer: Vitamin D 25-OH Vitamin D 25-Hydroxy [id number] 634.6397 (Gigabit Squared) Reviewed by Maya Barron MD on 11/20; All test results are final unless otherwise noted. Reported Physicians [facility] Ordered by Maya Barron MD on 11/17/2020 Collected: 11/17/2020 Reported: 11/18/2020 08:17 Reported Physicians See Note None Note: Reported Physicians:Ordering: Maya AlvarengaAttending: Maya Barron Reviewed by Maya Barron MD on 11/20; All test results are final unless otherwise noted. CBC W AUTO DIFF [facility] Ordered by Maya Barron MD on [...] Auto See Note (0-2) N (Normal) Note: [id number] Ob subpoena server: IG% IG% 100.1375 (B) Hct VFr [...] results are final unless otherwise noted. [facility] Ordered by Maya Barron MD [...] results are final unless otherwise noted. D-DIMER [facility] Ordered by Maya Barron MD on [...] are final unless otherwise noted. Reported Physicians [facility] Ordered by Maya Barron MD on 10/23/2020 Collected: 10/23/2020 Reported: 10/23/2020 01:22 Reported Physicians See Note None Note: Reported Physicians:Ordering: Yoli NapolesAttending: Charles Silva To: Maya Barron Reviewed by Maya Barron MD on 10/23; All test results are final unless otherwise noted. BHCG Quantitative [facility] Ordered by Maya Barron MD on 10/23/2020 Collected: 10/23/2020 Reported: 10/23/2020 01:21 B-HCG SerPl-aCnc 99706 MilliInternationalUnitsPerMilliLiter_[Arbitrary_Con (0-10) H (High) Note: @Instrument will [...] are final unless otherwise noted. Reported Physicians [facility] Ordered by Maya Barron MD on 10/23/2020 Collected: 10/23/2020 Reported: 10/23/2020 01:21 Reported Physicians See Note None Note: Reported Physicians:Ordering: Cliff Napolesending: Charles Silva To: Maya Barron Reviewed by Maya Barron MD on 10/23; All test results are final unless otherwise noted. TROPONIN [facility] Ordered by Maya Barron MD on [...] are final unless otherwise noted. Reported Physicians [facility] Ordered by Maya Barron MD on 10/23/2020 Collected: 10/23/2020 Reported: 10/23/2020 01:03 Reported Physicians See Note None Note: Reported Physicians:Ordering: Yoli NapolesAttending: Charles Silva To: Maya Barron Reviewed by Maya Barron MD on 10/23; All test results are final unless otherwise noted. FREE T4 (LAB) [facility] Ordered by Maya Barron MD on 10/21/2020 Collected: 10/21/2020 Reported: 10/21/2020 15:17 T4 Free SerPl-mCnc 0.97 NanoGramsPerDeciLiter_[Mass_Concentration_Units] (0.89-1.76) N (Normal) Note: Responsible Observer: FREE T4 Free Thyroxine 600.7005 (D) Reviewed by Maya Barron MD on 10/23; All test results are final unless otherwise noted. Reported Physicians [facility] Ordered by Maya Barron MD on 10/21/2020 Collected: 10/21/2020 Reported: 10/21/2020 15:17 Reported Physicians See Note None Note: Reported Physicians:Ordering: Choco KaurAttending: Adam Pardo To: Maya Barron Reviewed by Maya Barron MD on 10/23; All test results are final unless otherwise noted. TSH [facility] Ordered by Maya Barron MD on 10/21/2020 Collected: 10/21/2020 Reported: 10/21/2020 15:17 TSH SerPl DL<=0.005 mIU/L-aCnc 1.40 MicroInternationalUnitsPerMilliLiter_[Arbitrary_Con (0.35-5. 50) N (Normal) Note: Responsible Observer: TSH TSH 600 .7055 (D) Reviewed by Maya Barron MD on 10/23; All test results are final unless otherwise noted. Reported Physicians [facility] Ordered by Maya Barron MD on 10/21/2020 Collected: 10/21/2020 Reported: 10/21/2020 15:17 Reported Physicians See Note None Note: Reported Physicians:Ordering: Math is, TimothyAttending: Pardo, TimothyCopy To: Maya Barron Reviewed by Maya Barron MD on 10/23; All test results are final unless otherwise noted. UA W/ CULTURE IF ABNORMAL [facility] Ordered by Maya Barron MD on 10/19/2020 Collected: 10/19/2020 Reported: 10/19/2020 16:31 Urobilinogen Ur Ql See Note (0.2-1 EU/dl) None Note: 0.2 EU/dl0.2 [id number] E U/dlResponsible Observer: UROBILINOGEN UROBILINOGEN 300.4500 (C) RBC # Ur Strip NEGATIVE (NEGATIVE) None Note: Responsible Observer: BLOOD BLOOD 300.4652 (C) Prot Ur Ql Strip See Note (NEGATIVE) None Note: [id number] EResponsible Observer: PROTEIN PROTEIN 300.3750 (C) Ketones Ur Ql Strip See Note (NEGATIVE) None Note: [id number] EResponsible Observer: KETONE KETONE 300.3900 (C) Bilirub Ur Ql Strip.auto See Note (NEGATIVE) None Note: [id number] EResponsible Observer: BILIRUBIN BILIRUBIN 300.4550 (C) Glucose Ur Strip.auto-mCnc 100 mg/dl (NEGATIVE) None Note: Responsible Observer: GLUCOSE GLUC OSE 300.3850 (C) Appearance Ur See Note (CLEAR) None Note: CLEARCLEARLCLEARResponsible Observ er: APPEARANCE APPEARANCE 300.3400 (A) Color Ur See Note None Note: YELLOWYELLOWLYELLOWResponsible Obs erver: COLOR COLOR 300.3330 (A) Leukocyte esterase Ur Ql Strip See Note (NEGATIVE) None Note: [id number] EResponsible Observer: LEUKOCYTES LEUKOCYTES 300.3576 (C) Nitrite Ur Ql Strip See Note (NEGATIVE) None Note: [id number] EResponsible Observer: NITRITE NITRITE 300.3652 (B) pH [...] are final unless otherwise noted. Reported Physicians [facility] Ordered by Maya Barron MD on 10/19/2020 Collected: 10/19/2020 Reported: 10/19/2020 16:31 Reported Physicians See Note None Note: Reported Physicians:Ordering: Les Vanegasding: Fady Raza To: Maya Barron Reviewed by Maya Barron MD on 10/20; All test results are final unless otherwise noted. URINE DRUG SCREEN -([facility]) [facility] Ordered by Maya Barron MD on 10/19/2020 Collected: 10/19/2020 Reported: 10/19/2020 16:40 PCP Ur Ql Scn>25 ng/mL See Note (Cutoff 25) None Note: [id number] E@Reenter manual test result: NEGATIVE@by Jia Lentz at 10/19/20 1639.Responsible Observer: PCP Urine Phencyclidine (PCP) Scrn 400.5120 (A) THC Ur Ql Scn>50 ng/mL See Note (Cutoff 50) None Note: [id number] EResponsible Observer: Marijuana (THC) Ur Marijuana (THC) Screen 400.5110 (A) Benzodiaz Ur Ql Scn See Note (Cutoff 150) None Note: [id number] E@Reenter manual test result: NEGATIVE@by Jia Lentz at 10/19/20 1640.Responsible Observer: Benzodiazepines Urine Benzodiazepines Screen 400.5170 (A) Opiates Ur Ql Scn See Note (Cutoff 100) None Note: [id number] E@Reenter manual test result: NEGATIVE@by Jia Lentz at 10/19/20 1640.Responsible Observer: Opiates Urine Opiates Screen 400.5150 (A) Tricyclics Ur Ql Scn See Note (Cutoff 300) None Note: [id number] E@Reenter manual test result: NEGATIVE@by Jia Lentz at 10/19/20 1640.Responsible Observer: TCA Ur Tricyclic Antidepressants 400.5180 (A) Cocaine Ur Ql Scn See Note (Cutoff 150) None Note: [id number] E@Reenter manual test result: NEGATIVE@by Jia Lentz at 10/19/20 1640.Responsible Observer: Cocaine Urine Cocaine Screen 400.5130 (A) Propoxyph+Nor Ur Ql Scn See Note (Cutoff 300) None Note: [id number] E@Reenter manual test result: NEGATIVE@by Jia Lentz at 10/19/20 1640.Responsible Observer: Propoxyphene Urine Propoxyphene Screen 400.5220 (A) Methadone Ur Ql Scn See Note (Cutoff 200) None Note: [id number] E@Reenter manual test result: NEGATIVE@by Jia Lentz at 10/19/20 1640.Responsible Observer: Methadone Urine Methadone Screen 400.5190 (A) Methamphet Ur Ql Scn See Note (Cutoff 500) None Note: [id number] E@Reenter manual test result: NEGATIVE@by Jia Lentz at 10/19/20 1640.Responsible Observer: Methamphetamine Urine Methamphetamines Screen 400.5140 (A) oxyCODONE Ur Ql Scn See Note (Cutoff 100) None Note: [id number] E@Reenter manual test result: NEGATIVE@by Jia Lentz at 10/19/20 1640.Responsible Observer: Oxycodone Urine Oxycodone Screen 400.5210 (A) Buprenorphine Ur Ql See Note (Cutoff 10) None Note: [id number] E@Reenter manual test result: NEGATIVE@by Jia Lentz at 10/19/20 1640.Responsible Observer: Buprenorphine Urine Buprenorphine Screen 400.5230 (A) Amphetamines Ur Ql Scn>500 ng/mL See Note (Cutoff 500) None Note: [id number] E@Reenter manual test result: NEGATIVE@by Jia Lentz at 10/19/20 1640.Responsible Observer: Amphetamines Urine Amphetamines Screen 400.5160 (A) Barbiturates Ur Ql Scn>200 ng/mL See Note (Cutoff 200) None Note: [id number] E@Reenter manual test result: NEGATIVE@by Jia Lentz at 10/19/20 1640.Responsible Observer: Barbiturates Urine Barbiturates 400.5200 (A) Reviewed by Maya Barron MD on 10/20; All test results are final unless otherwise noted. Reported Physicians [facility] Ordered by Maya Barron MD on 10/19/2020 Collected: 10/19/2020 Reported: 10/19/2020 16:40 Reported Physicians See Note None Note: Reported Physicians:Ordering: Les Vanegasding: Fady Raza To: Maya Barron Reviewed by Maya Barron MD on 10/20; All test results are final unless otherwise noted. CRP, C-REACTIVE PROTEIN [facility] Ordered by Maya Barron MD on 10/19/2020 Collected: 10/19/2020 Reported: 10/19/2020 16:08 CRP SerPl-mCnc 7.5 MilliGramsPerLiter_[Mass_Concentration_Units] (0.0-5.0) H (High) Note: Responsible Observer: CRP C-Reacti ve Protein 401.4355 (H) Reviewed by Maya Barron MD on 10/20; All test results are final unless otherwise noted. SED RATE [facility] Ordered by Maya Barron MD on 10/19/2020 Collected: 10/19/2020 Reported: 10/19/2020 16:32 ESR Bld Qn Westrgrn 22 (0-20) H (High) Note: @Reenter manual test result: 22@by Jia Lentz at 10/19/20 1632.Responsible Observer: SED RATE SED RATE 100.6400 (B) Reviewed by Maya Barron MD on 10/20; All test results are final unless otherwise noted. Reported Physicians [facility] Ordered by Maya Barron MD on 10/19/2020 Collected: 10/19/2020 Reported: 10/19/2020 16:33 Reported Physicians See Note None Note: Reported Physicians:Ordering: Les Vanegastending: Fady Raza To: Maya Barron Reviewed by Maya Barron MD on 10/20; All test results are final unless otherwise noted. CMP [facility] Ordered by Maya Barron MD on [...] unless otherwise noted. CBC W AUTO DIFF [facility] Ordered by Maya Barron MD on [...] Auto See Note (0-2) N (Normal) Note: [id number] Ob subpoena server: IG% IG% 100.1375 (B) Hct VFr [...] are final unless otherwise noted. Reported Physicians [facility] Ordered by Maya Barron MD on 10/19/2020 Collected: 10/19/2020 Reported: 10/19/2020 16:33 Reported Physicians See Note None Note: Reported Physicians:Ordering: Les Vanegas: Fady Raza To: Maya Barron Reviewed by Maya Barron MD on 10/20; All test results are final unless otherwise noted. TROPONIN [facility] Ordered by Maya Barron MD on [...] are final unless otherwise noted. Reported Physicians [facility] Ordered by Maya Barron MD on 10/19/2020 Collected: 10/19/2020 Reported: 10/19/2020 16:10 Reported Physicians See Note None Note: Reported Physicians:Ordering: Les Vanegas: Fady Raza To: Maya Barron Reviewed by Maya Barron MD on 10/20; All test results are final unless otherwise noted. TSH w/ reflex to Free T4 [facility] Ordered by Maya Barron MD on 10/19/2020 Collected: 10/19/2020 Reported: 10/19/2020 16:08 TSH SerPl DL<=0.005 mIU/L-aCnc 1.66 MicroInternationalUnitsPerMilliLiter_[Arbitrary_Con (0.35-5. 50) N (Normal) Note: Responsible Observer: TSH TSH 600 .7060 (D) Reviewed by Maya Barron MD on 10/20; All test results are final unless otherwise noted. Reported Physicians [facility] Ordered by Maya Barron MD on 10/19/2020 Collected: 10/19/2020 Reported: 10/19/2020 16:08 Reported Physicians See Note None Note: Reported Physicians:Ordering: Les Vanegasding: Fady Raza To: Maya Barron Reviewed by Maya Barron MD on 10/20; All test results are final unless otherwise noted. PT/PTT [facility] Ordered by Maya Barron MD on [...] are final unless otherwise noted. Reported Physicians [facility] Ordered by Maya Barron MD on 10/08/2020 Collected: 10/08/2020 Reported: 10/08/2020 03:22 Reported Physicians See Note None Note: Reported Physicians:Ordering: Sana Recinosending: Sammie Ann To: Maya Barron Reviewed by Maya Barron MD on 10/09; All test results are final unless otherwise noted. CBC W AUTO DIFF [facility] Ordered by Maya Barron MD on [...] Auto See Note (0-2) N (Normal) Note: [id number] Ob subpoena server: IG% IG% 100.1375 (B) Hct VFr [...] results are final unless otherwise noted. MAGNESIUM [facility] Ordered by Maya Barron MD on 10/08/2020 Collected: 10/08/2020 Reported: 10/08/2020 03:17 Magnesium SerPl-mCnc 1.8 MilliGramsPerDeciLiter_[Mass_Concentration_Units] (1.3-2.7) N (Normal) Note: Responsible Observer: Magnesium Ma gnesium 400.3300 (G) Reviewed by Maya Barron MD on 10/09; All test results are final unless otherwise noted. D-DIMER [facility] Ordered by Maya Barron MD on [...] are final unless otherwise noted. Reported Physicians [facility] Ordered by Maya Barron MD on 10/08/2020 Collected: 10/08/2020 Reported: 10/08/2020 03:27 Reported Physicians See Note None Note: Reported Physicians:Ordering: Sana Recinosending: Sammie Ann To: Maya Barron Reviewed by Maya Barron MD on 10/09; All test results are final unless otherwise noted. BMP [facility] Ordered by Maya Barron MD on [...] are final unless otherwise noted. Reported Physicians [facility] Ordered by Maya Barron MD on 10/08/2020 Collected: 10/08/2020 Reported: 10/08/2020 03:21 Reported Physicians See Note None Note: Reported Physicians:Ordering: Sana Recinosending: Sammie Ann To: Maya Barron Reviewed by Maya Barron MD on 10/09; All test results are final unless otherwise noted. CBC W AUTO DIFF [facility] Ordered by Maya Barron MD on [...] Auto See Note (0-2) N (Normal) Note: [id number] Ob subpoena server: IG% IG% 100.1375 (B) Hct VFr [...] results are final unless otherwise noted. [facility] Ordered by Maya Barron MD [...] are final unless otherwise noted. Reported Physicians [facility] Ordered by Maya Barron MD on 10/04/2020 Collected: 10/04/2020 Reported: 10/04/2020 17:42 Reported Physicians See Note None Note: Reported Physicians:Ordering: Les Vanegas: Fady Raza To: Maya Barron Reviewed by Maya Barron MD on 10/09; All test results are final unless otherwise noted. SED RATE [facility] Ordered by Maya Barron MD on 10/04/2020 Collected: 10/04/2020 Reported: 10/04/2020 18:05 ESR Bld Qn Westrgrn 16 (0-20) N (Normal) Note: @Reenter manual test result: 16@by Jia Lentz at 10/04/20 1805.Responsible Observer: SED RATE SED RATE 100.6400 (B) Reviewed by Maya Barron MD on 10/09; All test results are final unless otherwise noted. Reported Physicians [facility] Ordered by Maya Barron MD on 10/04/2020 Collected: 10/04/2020 Reported: 10/04/2020 18:06 Reported Physicians See Note None Note: Reported Physicians:Ordering: Les Vanegas: Fady Raza To: Maya Barron Reviewed by Maya Barron MD on 10/09; All test results are final unless otherwise noted. TSH w/ reflex to Free T4 [facility] Ordered by Maya Barron MD on 10/04/2020 Collected: 10/04/2020 Reported: 10/04/2020 17:42 TSH SerPl DL<=0.005 mIU/L-aCnc 1.92 MicroInternationalUnitsPerMilliLiter_[Arbitrary_Con (0.35-5. 50) N (Normal) Note: Responsible Observer: TSH TSH 600 .7060 (D) Reviewed by Maya Barron MD on 10/09; All test results are final unless otherwise noted. Reported Physicians [facility] Ordered by Maya Barron MD on 10/04/2020 Collected: 10/04/2020 Reported: 10/04/2020 17:42 Reported Physicians See Note None Note: Reported Physicians:Ordering: Les Vanegas: Fady Raza To: Maya Barron Reviewed by Maya Barron MD on 10/09; All test results are final unless otherwise noted. TROPONIN [facility] Ordered by Maya Barron MD on [...] are final unless otherwise noted. Reported Physicians [facility] Ordered by Maya Barron MD on 10/04/2020 Collected: 10/04/2020 Reported: 10/04/2020 17:35 Reported Physicians See Note None Note: Reported Physicians:Ordering: Les Vanegas: Fady Raza To: Maya Barron Reviewed by Maya Barron MD on 10/09; All test results are final unless otherwise noted. FREE T4 (LAB) [facility] Ordered by Maya Barron MD on 10/03/2020 Collected: 10/03/2020 Reported: 10/03/2020 20:08 T4 Free SerPl-mCnc 0.97 NanoGramsPerDeciLiter_[Mass_Concentration_Units] (0.89-1.76) N (Normal) Note: Responsible Observer: FREE T4 Free Thyroxine 600.7005 (D) Reviewed by Maya Barron MD on 10/04; All test results are final unless otherwise noted. Reported Physicians [facility] Ordered by Maya Barron MD on 10/03/2020 Collected: 10/03/2020 Reported: 10/03/2020 20:08 Reported Physicians See Note None Note: Reported Physicians:Ordering: Yoli NapolesAttending: Charles Silva To: Maya Barron Reviewed by Maya Barron MD on 10/04; All test results are final unless otherwise noted. CBC W AUTO DIFF [facility] Ordered by Maya Barron MD on [...] Auto See Note (0-2) N (Normal) Note: [id number] Ob subpoena server: IG% IG% 100.1375 (B) Hct VFr [...] results are final unless otherwise noted. [facility] Ordered by Maya Barron MD [...] are final unless otherwise noted. Reported Physicians [facility] Ordered by Myaa Barron MD on 10/03/2020 Collected: 10/03/2020 Reported: 10/03/2020 20:03 Reported Physicians See Note None Note: Reported Physicians:Ordering: Yoli NapolesAttending: Joaquín Silvay To: Maya Barron Reviewed by Maya Barron MD on 10/04; All test results are final unless otherwise noted. BHCG Quantitative [facility] Ordered by Maya Barron MD on 10/03/2020 Collected: 10/03/2020 Reported: 10/03/2020 20:23 B-HCG SerPl-aCn 68667 MilliInternationalUnitsPerMilliLiter_[Arbitrary_Con (0-10) H (High) Note: @Instrument will autodiluteAPPROXI MATE GESTATION AGE APRROXIMATE HCG RANGE 0-1 WEEK 0 - 50 1-2 WEEKS 40 - 300 2-3 WEEKS 100 - 1,000 3-4 WEEKS 500 - 6,000 1-2 MONTHS 5,000 - 200,000 2-3 MONTHS 10,000 - 100,000 2ND TRIMESTER 3,000 - 50,000 3RD TRIMESTER 1,000 - 50,000Responsible Observer: [facility] Quant [facility] Quantitative 600.5006 (G) Reviewed by Maya Barron MD on 10/04; All test results are final unless otherwise noted. Reported Physicians [facility] Ordered by Maya Barron MD on 10/03/2020 Collected: 10/03/2020 Reported: 10/03/2020 20:23 Reported Physicians See Note None Note: Reported Physicians:Ordering: Yoli NapolesAttending: Charles Silva To: Maya Barron Reviewed by Maya Barron MD on 10/04; All test results are final unless otherwise noted. TROPONIN [facility] Ordered by Maya Barron MD on [...] are final unless otherwise noted. Reported Physicians [facility] Ordered by Maya Barron MD on 10/03/2020 Collected: 10/03/2020 Reported: 10/03/2020 20:07 Reported Physicians See Note None Note: Reported Physicians:Ordering: Yoli NapolesAttending: Charles Silva To: Maya Barron Reviewed by Maya Barron MD on 10/04; All test results are final unless otherwise noted. MANUAL DIFF [facility] Ordered by Maya Barron MD on 10/03/2020 Collected: 10/03/2020 Reported: 10/03/2020 19:56 MANUAL DIFF See Note None Note: NOTES OTHER/NOT INTERPRETED Cells counted 100 Lymphocytes # Bld Manual 17 %Monocytes # Bld Manual 3 %Morphology Bld-Imp APPEARS NORMAL Neutrophils # Bld Manual 80 %Platelet # Bld Est APPEARS NORMAL @10/03/208: MANUAL DIFF added. RFLXG = DIFF.Responsible Observer: TOTAL CELLS TOTAL CELLS COUNTED 100.2105 (A) Reviewed by Maya Barron MD on 10/04; All test results are final unless otherwise noted. Reported Physicians [facility] Ordered by Maya Barron MD on 10/03/2020 Collected: 10/03/2020 Reported: 10/03/2020 19:56 Reported Physicians See Note None Note: Reported Physicians:Ordering: Yoli NapolesAttending: Charles Silva To: Maya Barron Reviewed by Maya Barron MD on 10/04; All test results are final unless otherwise noted. UA W/ CULTURE IF ABNORMAL [facility] Ordered by Maya Barron MD on 10/03/2020 Collected: 10/03/2020 Reported: 10/03/2020 19:52 Urobilinogen Ur Ql See Note (0.2-1 EU/dl) None Note: 0.2 EU/dl0.2 EU/[id number] E U/dlResponsible Observer: UROBILINOGEN UROBILINOGEN 300.4500 (C) RBC # Ur Strip NEGATIVE (NEGATIVE) None Note: Responsible Observer: BLOOD BLOOD 300.4652 (C) Prot Ur Ql Strip See Note (NEGATIVE) None Note: [id number] EResponsible Observer: PROTEIN PROTEIN 300.3750 (C) Ketones Ur Ql Strip See Note (NEGATIVE) None Note: [id number] EResponsible Observer: KETONE KETONE 300.3900 (C) Bilirub Ur Ql Strip.auto See Note (NEGATIVE) None Note: [id number] EResponsible Observer: BILIRUBIN BILIRUBIN 300.4550 (C) Glucose Ur Strip.auto-mCnc NEGATIVE (NEGATIVE) None Note: Responsible Observer: GLUCOSE GLUC OSE 300.3850 (C) Appearance Ur See Note (CLEAR) None Note: CLEARCLEARLCLEARResponsible Observ er: APPEARANCE APPEARANCE 300.3400 (A) Color Ur See Note None Note: YELLOWYELLOWLYELLOWResponsible Obs erver: COLOR COLOR 300.3330 (A) Leukocyte esterase Ur Ql Strip See Note (NEGATIVE) None Note: [id number]@DO MICR O!!!!A Culture has been added to this specimen per established criteriaResponsible Observer: LEUKOCYTES LEUKOCYTES 300.3576 (C) Nitrite Ur Ql Strip See Note (NEGATIVE) None Note: [id number] EResponsible Observer: NITRITE NITRITE 300.3652 (B) pH [...] are final unless otherwise noted. Urine culture [facility] Ordered by Maya Barron MD on 10/03/2020 Collected: 10/03/2020 Reported: 10/04/2020 13:10 Bacteria Ur Cult See Note None Note: NGNo growth.L1NG NOTES See Note None Note: @10/03/201951: Urine culture adde d. RFLXG = CULT.ADD. Reviewed by Maya Barron MD on 10/04; All test results are final unless otherwise noted. Reported Physicians [facility] Ordered by Maya Barron MD on 10/03/2020 Collected: 10/03/2020 Reported: 10/04/2020 13:10 Reported Physicians See Note None Note: Reported Physicians:Ordering: Cliff Napolesending: Charles Silva To: Maya Barron Reviewed by Maya Barron MD on 10/04; All test results are final unless otherwise noted. ADD ON MICROSCOPIC [facility] Ordered by Maya Barron MD on 10/03/2020 Collected: 10/03/2020 Reported: 10/03/2020 19:52 ADD ON MICROSCOPIC See Note (0-5) None Note: NOTES OTHER/NOT INTERPRETED Bacteria UrnS Ql Micro SMALL AMOUNT Bacteria UrnS Ql Micro SMALL AMOUNT Bacteria UrnS Ql Micro L Bacteria UrnS Ql Micro Bacteria UrnS Ql Micro Bacteria UrnS Ql Micro Bacteria UrnS Ql Micro [id number] Bacteria UrnS Ql Micro Bacteria UrnS Ql Micro SMALL AMOUNT Cells UrnS Micro FEW Cells UrnS Micro FEW Cells UrnS Micro FEW Cells UrnS Micro L Cells UrnS Micro Cells UrnS Micro Cells UrnS Micro Cells UrnS Micro Cells UrnS Micro WBC # Ur Manual 1-2 Reason for ordering culture: Abnormal findings UA@10/03/201940: UA W/ MICRO added. RFLXG = UMIC CIF.Method of Collection:: VoidedResponsible Observer: WBC WBC 300.5005 (A) Reviewed by Maya Barron MD on 10/04; All test results are final unless otherwise noted. Reported Physicians [facility] Ordered by Maya Barron MD on 10/03/2020 Collected: 10/03/2020 Reported: 10/03/2020 19:52 Reported Physicians See Note None Note: Reported Physicians:Ordering: Yoli NapolesAttending: Charles Silva To: Maya Barron Reviewed by Maya Barron MD on 10/04; All test results are final unless otherwise noted. CBC W AUTO DIFF [facility] Ordered by Maya Barron MD on [...] Auto See Note (0-2) N (Normal) Note: [id number] Ob subpoena server: IG% IG% 100.1375 (B) Hct VFr [...] results are final unless otherwise noted. [facility] Ordered by Maya Barron MD [...] are final unless otherwise noted. Reported Physicians [facility] Ordered by Maya Barron MD on 09/18/2020 Collected: 09/18/2020 Reported: 09/18/2020 20:10 Reported Physicians See Note None Note: Reported Physicians:Ordering: Brook yeung, YoliAttending: Joaquín Silvay To: Maya Barron Reviewed by Maya Barron MD on 09/20; All test results are final unless otherwise noted. BHCG, QUANTITATIVE [facility] Ordered by Maya Barron MD on 09/18/2020 Collected: 09/18/2020 Reported: 09/18/2020 20:21 B-HCG SerPl-aCnc [id number] MilliInternationalUnitsPerMilliLiter_[Arbitrary_Con (0-10) H (High) Note: APPROXIMATE GESTATION [...] are final unless otherwise noted. Reported Physicians [facility] Ordered by Maya Barron MD on 09/18/2020 Collected: 09/18/2020 Reported: 09/18/2020 20:22 Reported Physicians See Note None Note: Reported Physicians:Ordering: Brook yeung, YoliAttending: Charles Silva To: Maya Barron Reviewed by Maya Barron MD on 09/20; All test results are final unless otherwise noted. TROPONIN [facility] Ordered by Maya Barron MD on [...] are final unless otherwise noted. Reported Physicians [facility] Ordered by Maya Barron MD on 09/18/2020 Collected: 09/18/2020 Reported: 09/18/2020 20:10 Reported Physicians See Note None Note: Reported Physicians:Ordering: Yoli NapolesAttending: Charles Silva To: Maya Barron Reviewed by Maya Barron MD on 09/20; All test results are final unless otherwise noted. Urine culture [facility] Ordered by Cat Gutierrez RPA on 09/11/2020 Collected: 09/11/2020 Reported: 09/12/2020 13:11 Bacteria Ur Cult See Note None Note: NGNo growth.L1NG NOTES See Note None Note: GEORGIANA PICKARD IN OTHER NAME IN MEDICAL RECORD Reviewed by Cat Gutierrez RPA on 09/12; All test results are final unless otherwise noted. Reported Physicians [facility] Ordered by Cat Gutierrez RPA on 09/11/2020 Collected: 09/11/2020 Reported: 09/12/2020 13:11 Reported Physicians See Note None Note: Reported Physicians:Ordering: Cat ConwayAttending: Cat Gutierrez Reviewed by Cat Gutierrez RPA on 09/12; All test results are final unless otherwise noted. UA W/ CULTURE IF ABNORMAL [facility] Ordered by Maya Barron MD on 09/10/2020 Collected: 09/10/2020 Reported: 09/10/2020 17:48 Urobilinogen Ur Ql See Note (0.2-1 EU/dl) None Note: 0.2 EU/dl0.2 EU/[id number] E U/dlResponsible Observer: UROBILINOGEN UROBILINOGEN 300.4500 (C) RBC # Ur Strip NEGATIVE (NEGATIVE) None Note: Responsible Observer: BLOOD BLOOD 300.4652 (C) Prot Ur Ql Strip See Note (NEGATIVE) None Note: [id number] EResponsible Observer: PROTEIN PROTEIN 300.3750 (C) Ketones Ur Ql Strip See Note (NEGATIVE) None Note: [id number] ble Observer: KETONE KETONE 300.3900 (C) Bilirub Ur Ql Strip.auto See Note (NEGATIVE) None Note: [id number] EResponsible Observer: BILIRUBIN BILIRUBIN 300.4550 (C) Glucose Ur Strip.auto-mCnc NEGATIVE (NEGATIVE) None Note: Responsible Observer: GLUCOSE GLUC OSE 300.3850 (C) Appearance Ur See Note (CLEAR) None Note: CLEARCLEARLCLEARResponsible Observ er: APPEARANCE APPEARANCE 300.3400 (A) Color Ur See Note None Note: YELLOWYELLOWLYELLOWResponsible Obs erver: COLOR COLOR 300.3330 (A) Leukocyte esterase Ur Ql Strip See Note (NEGATIVE) None Note: [id number] EResponsible Observer: LEUKOCYTES LEUKOCYTES 300.3576 (C) Nitrite Ur Ql Strip See Note (NEGATIVE) None Note: [id number] EResponsible Observer: NITRITE NITRITE 300.3652 (B) pH [...] are final unless otherwise noted. Reported Physicians [facility] Ordered by Maya Barron MD on 09/10/2020 Collected: 09/10/2020 Reported: 09/10/2020 17:48 Reported Physicians See Note None Note: Reported Physicians:Ordering: Les Vanegas: Fady Raza To: Maya Barron Reviewed by Maya Barron MD on 09/11; All test results are final unless otherwise noted. BHCG, QUANTITATIVE [facility] Ordered by Maya Barron MD on 09/10/2020 Collected: 09/10/2020 Reported: 09/10/2020 15:48 B-HCG [facility] 08846 MilliInternationalUnitsPerMilliLiter_[Arbitrary_Con (0-10) H (High) Note: @Instrument will [...] are final unless otherwise noted. Reported Physicians [facility] Ordered by Maya Barron MD on 09/10/2020 Collected: 09/10/2020 Reported: 09/10/2020 15:49 Reported Physicians See Note None Note: Reported Physicians:Ordering: Les Vanegas: Fady Raza To: Maya Barron Reviewed by Maya Barron MD on 09/11; All test results are final unless otherwise noted. ABO/Rh Type [facility] Ordered by Maya Barron MD on 09/10/2020 Collected: 09/10/2020 Reported: 09/10/2020 15:43 Blood bank studies Yes None Note: Responsible Observer: Prev. Histor y? Previous History? 100.0800 (A) Blood Type See Note None Note: OPO PositiveLResponsible Observer: Blood Type Blood Type 110.0950 (C) Reviewed by Maya Barron MD on 09/11; All test results are final unless otherwise noted. Reported Physicians [facility] Ordered by Maya Barron MD on 09/10/2020 Collected: 09/10/2020 Reported: 09/10/2020 15:43 Reported Physicians See Note None Note: Reported Physicians:Ordering: Les Vanegastending: Fady Raza To: Maya Barron Reviewed by Maya Barron MD on 09/11; All test results are final unless otherwise noted. COVID QUEST [facility] Ordered by Maya Barron MD on [...] findings,re- testing should be considered [facility]. Laboratory test results shouldalways be considered in the context of clinicalobservations and epidemiological data in making a finaldiagnosis and patient management decisions.Please review the "Fact Sheets" and FDA authorizedlabeling available for health care providers andpatients using the following websites:https://www.[employer] .com/home/Covid-19/HCP/NAAT/fact-klclo9avobu://www.[employer].com/home/Cov id-19/Patients/NAAT/fact-mlbhp4Mrth test has been authorized by the FDA under anEmergency Use Authorization (EUA) for use by authorizedlaboratories.Due to the current public health emergency, [facility] is receiving a high volume of samples [...] information about COVID-19 can be foundat the [employer] website:www.[facility].com/Covid19.THIS TEST WAS PERFORMED AT:[facility] [address] [address]PZHFUWCLAUDY ONEILLesponsible Observer: COVID-19 COVID-19 ТАТЬЯНА (SARS-CoV-2) [id number] 217.8656 ([facility]) Reviewed by Maya Barron MD on 08/25; All test results are final unless otherwise noted. Reported Physicians [facility] Ordered by Maya Barron MD on 08/23/2020 Collected: 08/23/2020 Reported: 08/25/2020 03:57 Reported Physicians See Note None Note: Reported Physicians:Ordering: Sana Recinosending: Sammie Ann To: Maya Barron Reviewed by Maya Barron MD on 08/25; All test results are final unless otherwise noted. Rapid Strep [facility] Ordered by Maya Barron MD on 08/15/[address] [place] [address], [phone] Collected: 08/15/2020 Reported: 08/15/2020 11:47 tel :[phone] strep antigen normal (negative) N (Normal) Reviewed by Maya Barron MD on 08/15; All test results are final unless otherwise noted. Urinalysis w/out microscopy [facility] Ordered by Maya Barron MD on 08/15/[address] [place] [address], [phone] Specimen Source: Urine Collected: 08/15/2020 Reporte d: 08/15/2020 11:03 tel:[phone] bilirubin normal (neg) N (Normal) blood normal [...] unless otherwise noted. Extended hours FLU/COV2 NAAT [facility] Ordered by Maya Barron MD on 08/15/2020 Collected: 08/15/2020 Reported: 08/15/2020 15:55 Extended hours FLU/COV2 NAAT See Note None Note: TNPNo Reportable ResultLTNPNo Repo rtable OnwvimX2YLR NOTES See Note None Note: GEORGIANA PICKARD IN OTHER NAME IN MEDICAL RECORD Reviewed by Maya Barron MD on 08/16; All test results are final unless otherwise noted. Reported Physicians [facility] Ordered by Maya Barron MD on 08/15/2020 Collected: 08/15/2020 Reported: 08/15/2020 15:55 Reported Physicians See Note None Note: Reported Physicians:Ordering: Maya AlvarengaAttending: Maya Barron Reviewed by Maya Barron MD on 08/16; All test results are final unless otherwise noted. Sweta Raquel SARS/FLU [facility] Ordered by Maya Barron MD on 08/15/2020 Collected: 08/15/2020 Reported: 08/15/2020 15:55 Sweta Raquel SARS/FLU See Note None Note: Sweta Raquel is a rapid, automated q ualitative anddifferentiation of Influenza type A,B and XHEN-CRY-8QVYU-RT-PCR testNORMAL VALUE IS "NOT DETECTED".Limitations of the sweta raquel Influenza A/B & DQCQ-PUU-0drodu method.Modifications to manufacturers recommendation and proceduresmay alter performance of the test.Negative results do not preclude Influenza A,B or SARS- AWY3wesaftqkuf and should not be used as the [...] out diseases caused by other bacterialor viral pathogens.80500-0PHPA-zcp CoV RNA Resp Ql ТАТЬЯНА+probeLNNSARS SARS-COV-2 NOT [id number]-ZCR-6 NOT [id number] RNA Resp Ql ТАТЬЯНА+probeLNNFLUAInfluenza A Not [id number] A Not Kcelhnzv20369-7IZULS RNA Resp Ql ТАТЬЯНА+probeLNNINBInfluenza B Not [id number] B Not Detected NOTES See Note None Note: GEORGIANA PICKARD IN OTHER NAME IN MEDICAL RECORD Reviewed by Maya Barron MD on 08/18; All test results are final unless otherwise noted. Throat culture [facility] Ordered by Maya Barron MD on 08/15/2020 Collected: 08/15/2020 Reported: 08/17/2020 06:37 Throat culture results Normal Deisy None Reviewed by Maya Barron MD on 08/18; All test results are final unless otherwise noted. Reported Physicians [facility] Ordered by Maya Barron MD on 08/15/2020 Collected: 08/15/2020 Reported: 08/17/2020 06:37 Reported Physicians See Note None Note: Reported Physicians:Ordering: Maya AlvarengaAttending: Maya Barron Reviewed by Maya Barron MD on 08/18; All test results are final unless otherwise noted. AFFIRM [facility] Ordered by Cat Gutierrez RPA on 08/09/2020 Collected: 08/09/2020 Reported: 08/11/2020 06:52 Dionna species DNA Probe NOT DETECTED (NOT DETECTED) None Note: THIS TEST WAS PERFORMED AT:[facility] [address] [address]KVFMLC MERATI,MDResponsible Observer: Dionna DNA Dionna species DNA Probe [id number] 913.2350 ([facility]) Gardnerella DNA Probe DETECTED (NOT DETECTED) H (High) Note: Increased levels of G. vaginalis m ay not be significantin the absence of signs and symptoms of bacterialvaginosis.Responsible Observer: Gardnerella DNA Gardnerella DNA Probe [id number] 913.2346 ([facility]) Trichomonas DNA Probe NOT DETECTED (NOT DETECTED) None Note: Responsible Observer: Trichomonas DNA Trichomonas DNA Probe [id number] 913.2340 ([facility]) NOTES See Note None Note: PICKARD:IN OTHER NAME IN MEDICAL RECORD Reviewed on 08/11/2020; All test result s are final unless otherwise noted. Reported Physicians [facility] Ordered by Cat Gutierrez RPA on 08/09/2020 Collected: 08/09/2020 Reported: 08/11/2020 06:52 Reported Physicians See Note None Note: Reported Physicians:Ordering: Atte nding: Cat GutierrezCopyifan To: Maya Barron Reviewed on 08/11/2020; All test result s are final unless otherwise noted. GCAMP [facility] Ordered by Cat Gutierrez RPA on 08/09/2020 Collected: 08/09/2020 Reported: 08/11/2020 06:52 C trach rRNA XXX Ql ТАТЬЯНА+probe See Note (NOT DETECTED) None Note: NOT DETECTEDNOT [id number] 6NOT DETECTEDResponsible Observer: C.Trach RNA Chlamydia trachomatis DNA-ТАТЬЯНА [id number] 913.9900 ([facility]) N gonorrhoea rRNA XXX Ql ТАТЬЯНА+probe See Note (NOT DETECTED) None Note: NOT DETECTEDNOT [id number] 6NOT DETECTEDResponsible Observer: GC RNA Neisseria gonorrhoeae DNA -ТАТЬЯНА [id number] 913.9905 ([facility]) Chlamydia/GC DNA Note SEE NOTE None Note: The analytical performance charact eristics of thisassay, when used to test SurePath(TM) specimens have beendetermined by [employer]. The modifications havenot been cleared or approved by the FDA. This assay hasbeen validated pursuant to the CLIA regulations and isused for clinical purposes.For additional information, please refer tohttps://education.[employer]/faq/MUT812(This link is being provided for information/educational purposes only.)THIS TEST WAS PERFORMED AT:[facility] [address]OSEAS MEANSMDResponsible Observer: GC/Chlam Note Chlamydia/GC DNA Note [id number] 913.9907 (A) NOTES See Note None Note: PICKARD:IN OTHER NAME IN MEDICAL RECORD Reviewed by Cat Gutierrez RPA on 08/12; All test results are final unless otherwise noted. Reported Physicians [facility] Ordered by Cat Gutierrez RPA on 08/09/2020 Collected: 08/09/2020 Reported: 08/11/2020 06:52 Reported Physicians See Note None Note: Reported Physicians:Ordering: Atte ndcristiane: Cat GutierrezCopy To: Maya Barron Reviewed by Cat Gutierrez RPA on 08/12; All test results are final unless otherwise noted. HPVI [facility] Ordered by Cat Gutierrez RPA on 08/09/2020 Collected: 08/09/2020 Reported: 08/15/2020 06:53 Thin Prep Vag See Note None Note: See scanned reportSee scanned repo rtLSee scanned reportResponsible Observer: TP w/HPV if ASC Thinprep w/HPV if ASCUS 805.1454 ([facility]) NOTES See Note None Note: [id number] Technique: BRUS H-SPATULABody Site: CERVIX Reviewed by Cat Gutierrez RPA on 08/15; All test results are final unless otherwise noted. Reported Physicians [facility] Ordered by Cat Gutierrez RPA on 08/09/2020 Collected: 08/09/2020 Reported: 08/15/2020 06:53 Reported Physicians See Note None Note: Reported Physicians:Ordering: Atte ndcristiane: Gaudencio GutierrezanaCopy To: Maya Barron Reviewed by Cat Gutierrez RPA on 08/15; All test results are final unless otherwise noted. ADD ON MICROSCOPIC [facility] Ordered by Cat Gutierrez RPA on 08/09/2020 Collected: 08/09/2020 Reported: 08/09/2020 12:23 ADD ON MICROSCOPIC See Note (0-5) H (High) Note: NOTES OTHER/NOT INTERPRETED Bacteria UrnS Ql Micro SMALL AMOUNT Bacteria UrnS Ql Micro SMALL AMOUNT Bacteria UrnS Ql Micro L Bacteria UrnS Ql Micro Bacteria UrnS Ql Micro Bacteria UrnS Ql Micro Bacteria UrnS Ql Micro [id number] Bacteria UrnS Ql Micro Bacteria UrnS Ql [...] Ql Micro Mucous Threads UrnS Ql Micro [id number] Mucous Threads UrnS Ql Micro Mucous Threads UrnS Ql Micro MODERATE AMOUNT WBC # Ur Manual 5-8 @08/09/20 1210: UA W/ MICRO added. RFLXG = UMIC.Method of Collection:: Clean CatchResponsible Observer: WBC WBC 300.5000 (A) Reviewed by Cat Gutierrez RPA on 08/12; All test results are final unless otherwise noted. Reported Physicians [facility] Ordered by Cat Gutierrez RPA on 08/09/2020 Collected: 08/09/2020 Reported: 08/10/2020 17:47 Reported Physicians See Note None Note: Reported Physicians:Ordering: Attchandler barton: Rigo Gutierrez To: Maya Barron Reviewed by Cat Gutierrez RPA on 08/12; All test results are final unless otherwise noted. URINALYSIS [facility] Ordered by Cat Gutierrez RPA on 08/09/2020 Collected: 08/09/2020 Reported: 08/09/2020 12:23 Urobilinogen Ur Ql See Note (0.2-1 EU/dl) None Note: 1 EU/dl1 EU/[id number] EU/dlRe sponsible Observer: UROBILINOGEN UROBILINOGEN 300.4500 (C) RBC # Ur Strip NEGATIVE (NEGATIVE) None Note: Responsible Observer: BLOOD BLOOD 300.4650 (C) Prot Ur Ql Strip See Note (NEGATIVE) None Note: [id number] ble Observer: PROTEIN PROTEIN 300.3750 (C) Ketones Ur Ql Strip See Note (NEGATIVE) None Note: [id number] ble Observer: KETONE KETONE 300.3900 (C) Bilirub Ur Ql Strip.auto See Note (NEGATIVE) None Note: [id number] EResponsible Observer: BILIRUBIN BILIRUBIN 300.4550 (C) Glucose Ur Strip.auto-mCnc NEGATIVE (NEGATIVE) None Note: Responsible Observer: GLUCOSE GLUC OSE 300.3850 (C) Appearance Ur See Note (CLEAR) None Note: CLEARCLEARLCLEARResponsible Observ er: APPEARANCE APPEARANCE 300.3400 (A) Color Ur See Note None Note: DARK YELLOWDARK YELLOWLDARK YELLOW Responsible Observer: COLOR COLOR 300.3300 (A) Leukocyte esterase Ur Ql Strip See Note (NEGATIVE) None Note: [id number]@DO MICR O!!!!Responsible Observer: LEUKOCYTES LEUKOCYTES 300.3575 (C) Nitrite Ur Ql Strip See Note (NEGATIVE) None Note: [id number] EResponsible Observer: NITRITE NITRITE 300.3650 (B) pH [...] are final unless otherwise noted. Urine culture [facility] Ordered by Cat Gutierrez RPA on 08/09/2020 Collected: 08/09/2020 Reported: 08/10/2020 08:33 Bacteria Ur Cult See Note None Note: NGNo growth.L1NG Reviewed by Cat Gutierrez RPA on 08/14; All test results are final unless otherwise noted. MEDMATCH [facility] Ordered by Cat Gutierrez RPA on 08/09/2020 Collected: 08/09/2020 Reported: 08/13/2020 15:56 MEDMATCH See scanned report None Note: Responsible Observer: MEDMATCH MED MATCH [phone] (Gig[employer] Squared) Reviewed by Cat Gutierrez RPA on 08/14; All test results are final unless otherwise noted. Reported Physicians [facility] Ordered by Cat Gutierrez [facility] on 08/09/2020 Collected: 08/09/2020 Reported: 08/13/2020 15:56 Reported Physicians See Note None Note: Reported Physicians:Ordering: Atte nding: Rigo Gutierrez To: Maya Barron Reviewed by Cat Gutierrez [facility] on 08/14; All test results are final unless otherwise noted. Varicella-Zoster IgG Antibody [facility] Ordered by Cat Gutierrez [facility] on 08/09/2020 Collected: 08/09/2020 Reported: 08/10/2020 17:47 VZV IgG Ser [facility] 242.10 None Note: Index Interpr etation [...] Antibody Immunity Screen, ACIF.THIS TEST WAS PERFORMED AT:[facility] [address]RLIKBG ME RATI,MDResponsible Observer: VARICELLA IGG Varicella-Zoster IgG Antibody [id number] 606.3201 ([facility]) NOTES See Note None Note: Patient Street Address: [facility] [address]Patient City: [place] Code: [address] Reviewed by Cat Gutierrez RPA on 08/12; All test results are final unless otherwise noted. CBC [facility] Ordered by Cat Gutierrez RPA on [...] Auto See Note (0-2) N (Normal) Note: [id number] Ob subpoena server: IG% IG% 100.1375 (B) Hct VFr [...] results are final unless otherwise noted. TSH [facility] Ordered by Cat Gutierrez RPA on 08/09/2020 Collected: 08/09/2020 Reported: 08/09/2020 14:24 TSH SerPl DL<=0.005 mIU/L-aCnc 1.18 MicroInternationalUnitsPerMilliLiter_[Arbitrary_Con (0.35-5. 50) N (Normal) Note: Responsible Observer: TSH TSH 600 .7055 (D) Reviewed by Cat Gutierrez RPA on 08/14; All test results are final unless otherwise noted. Lead (Venous) Wh.Bld [facility] Ordered by Cat Gutierrez RPA on 08/09/2020 Collected: 08/09/2020 Reported: 08/10/2020 17:47 Lead Bld-sCnc <1 (<5) None Note: See Note 1Note 1This test was faith granados and its analytical performancecharacteristics have been determined by [employer]. It has not been cleared or approved by theA. This assay has been validated pursuant to the CLIAregulations and is used for clinical purposes.THIS TEST WAS PERFORMED AT:[facility] [address]BMIWUNRadha ONEILLible Observer: Lead, WB Lead, Whole Blood [id number] 911.2190 ([facility]) NOTES See Note None Note: Patient Street Address: [facility] [address]Patient City: [place]: [place] Zip Code: [id number] Reviewed by Cat Gutierrez RPA on 08/14; All test results are final unless otherwise noted. ncPN REF [facility] Ordered by Cat Gutierrez RPA on 08/09/2020 Collected: 08/09/2020 Reported: 08/13/2020 15:26 T pallidum Ab Ser Ql Aggl See Note (Nonreactive) None Note: [id number] onreactiveResponsible Observer: TP-PA Treponema pallidum Ab (TP-PA) [id number] 908.0286 ([facility]) HIV1 RNA SerPl Ql ТАТЬЯНА+probe See Note None Note: TNPNo Reportable ResultLTNPNo Repo rtable ResultLLEP.LIVENTNPResponsible Observer: HIV 1 RNA, QL T HIV 1 RNA, QL TMA [id number] 908.0254 ([facility]) HBV surface Ag SerPl Ql IA See Note (NON-REACTIVE) None Note: [id number] 5NON-REACTIVEResponsible Observer: HBSAG Hepatitis B Surface Antigen [id number] 910.2004 ([facility]) RUBV IgG SerPl IA-aCnc 1.76 None Note: Index Interpretatio n ----- <0.90 Not consistent with immunity 0.90-0.99 Equivocal > or = 1.00 Consistent with immunityThe presence of rubella IgG antibody suggestsimmunization or past or current infection withrubella virus.THIS TEST WAS PERFORMED AT:[facility] [address]VRASGLCLAUDY ONEILLesponsible Observer: Rubella IgG Ab Rubella IgG Ab [id number] 911.2840 ([facility]) HIV1 Ab SerPlBld Ql IA.rapid See Note None Note: TNPNo Reportable ResultLTNPNo Repo rtable ResultLLEP.LIVENTNPResponsible Observer: HIV 1 AB HIV 1 AB [id number] 908.0250 ([facility]) HBsAg Confirmation See Note None Note: TNPNo Reportable ResultLTNPNo Repo rtable ResultLLEP.LIVENTNPResponsible Observer: HBsAg Confirm HBsAg Confirmation [id number] 910.2006 ([facility]) HIV (1&2) Screen, 4th Gen [...] for this purpose.For additional information please refer tohttp://education.[employer]/faq/OAX637(This link is being provided for informational/educational purposes only.)The performance of this assay has not been clinicallyvalidated in patients less than 2 years old.THIS TEST WAS PERFORMED AT:[facility] [address]NUPMBK MERATI,MDResponsible Observer: HIV ABS HIV (1&2) Screen, 4th Gen [id number] 908.0228 (I) Reviewed by Cat Gutierrez RPA on 08/14; All test results are final unless otherwise noted. Reported Physicians [facility] Ordered by Cat Gutierrez RPA on 08/09/2020 Collected: 08/09/2020 Reported: 08/13/2020 15:27 Reported Physicians See Note None Note: Reported Physicians:Ordering: Atte nding: Rigo Gutierrez To: Maya Barron Reviewed by Cat Gutierrez RPA on 08/14; All test results are final unless otherwise noted. Type and Screen [facility] Ordered by Cat Gutierrez RPA on [...] are final unless otherwise noted. Reported Physicians [facility] Ordered by Cat Gutierrez RPA on 08/09/2020 Collected: 08/09/2020 Reported: 08/09/2020 12:39 Reported Physicians See Note None Note: Reported Physicians:Ordering: Cat ConwayAttending: Cat GutierrezCopyifan To: Maya Barron Reviewed by Cat Gutierrez RPA on 08/10; All test results are final unless otherwise noted. HCV RFX ТАТЬЯНА [facility] Ordered by Cat Gutierrez RPA on 08/09/2020 Collected: 08/09/2020 Reported: 08/10/2020 17:47 HCV Ab Ser Ql See Note (NON-REACTIVE) None Note: [id number] 7NON-REACTIVEResponsible Observer: HEP C ANTIBODY Hepatitis C Antibody [id number] 914.8305 (Gigabit Squared) HCV RNA Qualitative (ТАТЬЯНА) 0.54 (<1.00) None Note: HCV antibody was non-reactive. The re is no laboratoryevidence of HCV infection.In most cases, no further action is required. However,if recent HCV exposure is suspected, a test for HCV RNA(test code 52433) is suggested.For additional information please refer tohttp://education.[employer]/faq/JUD94w8(This link is being provided for informational/educational purposes only.)THIS TEST WAS PERFORMED AT:[facility] [address]CLAUDY ONEILLesponsible Observer: SIG TO C/O SIGNAL TO CUTOFF [id number] 914.8335 ([employer]ig[employer] Squared) NOTES See Note None Note: Patient Street Address: [facility] [address]Patient City: [place]: [place] Zip Code: [address]firxt Reviewed by Cat Gutierrez RPA on 08/12; All test results are final unless otherwise noted. Reported Physicians [facility] Ordered by Cat Gutierrez RPA on 08/09/2020 Collected: 08/09/2020 Reported: 08/10/2020 17:47 Reported Physicians See Note None Note: Reported Physicians:Ordering: Attchandler barton: Rigo Gutierrez To: Maya Barron Reviewed by Cat Gutierrez RPA on 08/12; All test results are final unless otherwise noted. [facility] Ordered by Cat Gutierrez RPA on 08/08/2020 Collected: 08/08/2020 Reported: 08/08/2020 11:53 B-HCG SerPl-aCnc 52831 MilliInternationalUnitsPerMilliLiter_[Arbitrary_Con (0-10) H (High) Note: @Instrument will autodiluteAPPROXI MATE GESTATION AGE APRROXIMATE HCG RANGE 0-1 WEEK 0 - 50 1-2 WEEKS 40 - 300 2-3 WEEKS 100 - 1,000 3-4 WEEKS 500 - 6,000 1-2 MONTHS 5,000 - 200,000 2-3 MONTHS 10,000 - 100,000 2ND TRIMESTER 3,000 - 50,000 3RD TRIMESTER 1,000 - 50,000Responsible Observer: BHCG,QUANT CG, QUANTITATIVE 600.5006 (G) Reviewed by Cat Gutierrez RPA on 08/08; All test results are final unless otherwise noted. Reported Physicians [facility] Ordered by Cat Gutierrez RPA on 08/08/2020 Collected: 08/08/2020 Reported: 08/08/2020 11:54 Reported Physicians See Note None Note: Reported Physicians:Ordering: Atte oralia: Rigo Gutierrez To: Maya Barron Reviewed by Cat Gutierrez RPA on 08/08; All test results are final unless otherwise noted. [facility] Ordered by Cat Gutierrez RPA on 08/01/2020 Collected: 08/01/2020 Reported: 08/01/2020 02:26 B-HCG SerPl-aCnc 83882 MilliInternationalUnitsPerMilliLiter_[Arbitrary_Con (0-10) H (High) Note: @Instrument will [...] are final unless otherwise noted. Reported Physicians [facility] Ordered by Cat Gutierrez RPA on 08/01/2020 Collected: 08/01/2020 Reported: 08/01/2020 02:26 Reported Physicians See Note None Note: Reported Physicians:Ordering: Aj Ferreiraending: Jos Rivas To: Maya Barron Reviewed by Cat Gutierrez RPA on 08/01; All test results are final unless otherwise noted. Type and Screen [facility] Ordered by Cat Gutierrez RPA on [...] are final unless otherwise noted. Reported Physicians [facility] Ordered by Cat Gutierrez RPA on 08/01/2020 Collected: 08/01/2020 Reported: 08/01/2020 06:03 Reported Physicians See Note None Note: Reported Physicians:Ordering: Aj Ferreiraending: Jos Rivas To: Maya Barron Reviewed by Cat Gutierrez RPA on 08/01; All test results are final unless otherwise noted. CBC W AUTO DIFF [facility] Ordered by Cat Gutierrez RPA on [...] Auto See Note (0-2) N (Normal) Note: 0.10.7M80875673594.1Responsible Ob subpoena server: IG% IG% 100.1375 (B) Hct VFr [...] results are final unless otherwise noted. [facility] Ordered by Cat Gutierrez RPA [...] are final unless otherwise noted. Reported Physicians [facility] Ordered by Cat Gutierrez RPA on 08/01/2020 Collected: 08/01/2020 Reported: 08/01/2020 02:26 Reported Physicians See Note None Note: Reported Physicians:Ordering: Aj Ferreiraending: Jos Rivas To: Maya Barron Reviewed by Cat Gutierrez RPA on 08/01; All test results are final unless otherwise noted. ADD ON MICROSCOPIC [facility] Ordered by Cat Gutierrez RPA on 08/01/2020 Collected: 08/01/2020 Reported: 08/01/2020 01:01 ADD ON MICROSCOPIC See Note (0-5) None Note: NOTES OTHER/NOT INTERPRETED Bacteria UrnS Ql Micro MODERATE AMOUNT Bacteria UrnS Ql Micro MODERATE AMOUNT Bacteria UrnS Ql Micro L Bacteria UrnS Ql Micro Bacteria UrnS Ql Micro Bacteria UrnS Ql Micro Bacteria UrnS Ql Micro [id number] Bacteria UrnS Ql Micro Bacteria UrnS Ql [...] 0048: UA W/ MICRO added. RFLXG = [facility] CIF.Method of Collection:: VoidedResponsible Observer: RBC RBC 300.4900 (A) Reviewed by Cat Gutierrez RPA on 08/01; All test results are final unless otherwise noted. Reported Physicians [facility] Ordered by Cat Gutierrez RPA on 08/01/2020 Collected: 08/01/2020 Reported: 08/01/2020 01:01 Reported Physicians See Note None Note: Reported Physicians:Ordering: Aj Ferreiraending: Jos Rivas To: Maya Barron Reviewed by Cat Gutierrez RPA on 08/01; All test results are final unless otherwise noted. UA W/ CULTURE IF ABNORMAL [facility] Ordered by Cat Gutierrez RPA on 08/01/2020 Collected: 08/01/2020 Reported: 08/01/2020 01:01 Urobilinogen Ur Ql See Note (0.2-1 EU/dl) None Note: 0.2 EU/dl0.2 EU/[id number] E U/dlResponsible Observer: UROBILINOGEN UROBILINOGEN 300.4500 (C) RBC # Ur Strip SMALL (NEGATIVE) None Note: @DO MICRO!!!!Responsible Observer: BLOOD BLOOD 300.4652 (C) Prot Ur Ql Strip See Note (NEGATIVE) None Note: [id number] EResponsible Observer: PROTEIN PROTEIN 300.3750 (C) Ketones Ur Ql Strip See Note (NEGATIVE) None Note: 15 mg/dL15 mg/[id number] mg/d LResponsible Observer: KETONE KETONE 300.3900 (C) Bilirub Ur Ql Strip.auto See Note (NEGATIVE) None Note: [id number] EResponsible Observer: BILIRUBIN BILIRUBIN 300.4550 (C) Glucose Ur Strip.auto-mCnc NEGATIVE (NEGATIVE) None Note: Responsible Observer: GLUCOSE GLUC OSE 300.3850 (C) Appearance Ur See Note (CLEAR) None Note: CLEARCLEARLCLEARResponsible Observ er: APPEARANCE APPEARANCE 300.3400 (A) Color Ur See Note None Note: YELLOWYELLOWLYELLOWResponsible Obs erver: COLOR COLOR 300.3330 (A) Leukocyte esterase Ur Ql Strip See Note (NEGATIVE) None Note: [id number]@DO MICR O!!!!A Culture has been added to this specimen per established criteriaResponsible Observer: LEUKOCYTES LEUKOCYTES 300.3576 (C) Nitrite Ur Ql Strip See Note (NEGATIVE) None Note: [id number] EResponsible Observer: NITRITE NITRITE 300.3652 (B) pH [...] are final unless otherwise noted. Urine culture [facility] Ordered by Cat Gutierrez RPA on 08/01/2020 Collected: 08/01/2020 Reported: 08/02/2020 07:41 Urine culture result See Note None Note: Greater than 100,000 CFU/MLLactoba cilli no senst done NOTES See Note None Note: @08/01/20 0101: Urine culture flavia sawyer RFLXG = CULT.ADD. Reviewed by Cat Gutierrez RPA on 08/02; All test results are final unless otherwise noted. Reported Physicians [facility] Ordered by Cat Gutierrez RPA on 08/01/2020 Collected: 08/01/2020 Reported: 08/02/2020 07:41 Reported Physicians See Note None Note: Reported Physicians:Ordering: Aj Ferreiraending: Jos Rivas To: Maya Barron Reviewed by Cat Gutierrez RPA on 08/02; All test results are final unless otherwise noted. [facility], QUANTITATIVE [facility] Ordered by Cat Gutierrez RPA on 07/31/2020 Collected: 07/31/2020 Reported: 07/31/2020 16:53 B-HCG [facility] [address] MilliInternationalUnitsPerMilliLiter_[Arbitrary_Con (0-10) H (High) Note: @Instrument will [...] are final unless otherwise noted. Reported Physicians [facility] Ordered by Cat Gutierrez RPA on 07/31/2020 Collected: 07/31/2020 Reported: 07/31/2020 16:53 Reported Physicians See Note None Note: Reported Physicians:Ordering: Jannet barton: Cat Gutierrez Reviewed by Cat Gutierrez RPA on 08/01; All test results are final unless otherwise noted. ADD ON MICROSCOPIC [facility] Ordered by Cat Gutierrez [facility] on 07/27/2020 Collected: 07/27/2020 Reported: 07/27/2020 21:36 ADD ON MICROSCOPIC See Note (0-5) None Note: NOTES OTHER/NOT INTERPRETED Bacteria UrnS Ql Micro SMALL AMOUNT Bacteria UrnS Ql Micro SMALL AMOUNT Bacteria UrnS Ql Micro L Bacteria UrnS Ql Micro Bacteria UrnS Ql Micro Bacteria UrnS Ql Micro Bacteria UrnS Ql Micro [id number] Bacteria UrnS Ql Micro Bacteria UrnS Ql [...] WBC 300.5005 (A) Reviewed by Cat Gutierrez [facility] on 07/28; All test results are final unless otherwise noted. Reported Physicians [facility] Ordered by Cat Gutierrez [facility] on 07/27/2020 Collected: 07/27/2020 Reported: 07/27/2020 21:37 Reported Physicians See Note None Note: Reported Physicians:Ordering: Daquan BustamanteAttending: Daquan GoodCopyifan To: Maya Barron Reviewed by Cat Gutierrez [facility] on 07/28; All test results are final unless otherwise noted. UA W/ CULTURE IF ABNORMAL [facility] Ordered by Cat Gutierrez [facility] on 07/27/2020 Collected: 07/27/2020 Reported: 07/27/2020 21:36 Urobilinogen Ur Ql See Note (0.2-1 EU/dl) None Note: 0.2 EU/dl0.2 EU/[id number] E U/dlResponsible Observer: UROBILINOGEN UROBILINOGEN 300.4500 (C) RBC # Ur Strip NEGATIVE (NEGATIVE) None Note: Responsible Observer: BLOOD BLOOD 300.4652 (C) Prot Ur Ql Strip See Note (NEGATIVE) None Note: [id number] EResponsible Observer: PROTEIN PROTEIN 300.3750 (C) Ketones Ur Ql Strip See Note (NEGATIVE) None Note: [id number] EResponsible Observer: KETONE KETONE 300.3900 (C) Bilirub Ur Ql Strip.auto See Note (NEGATIVE) None Note: [id number] EResponsible Observer: BILIRUBIN BILIRUBIN 300.4550 (C) Glucose Ur Strip.auto-mCnc NEGATIVE (NEGATIVE) None Note: Responsible Observer: GLUCOSE GLUC OSE 300.3850 (C) Appearance Ur See Note (CLEAR) None Note: CLEARCLEARLCLEARResponsible Observ er: APPEARANCE APPEARANCE 300.3400 (A) Color Ur See Note None Note: YELLOWYELLOWLYELLOWResponsible Obs erver: COLOR COLOR 300.3330 (A) Leukocyte esterase Ur Ql Strip See Note (NEGATIVE) None Note: [id number]@DO MICR O!!!!A Culture has been added to this specimen per established criteriaResponsible Observer: LEUKOCYTES LEUKOCYTES 300.3576 (C) Nitrite Ur Ql Strip See Note (NEGATIVE) None Note: [id number] EResponsible Observer: NITRITE NITRITE 300.3652 (B) pH [...] are final unless otherwise noted. Urine culture [facility] Ordered by Cat Gutierrez RPA on 07/27/2020 Collected: 07/27/2020 Reported: 07/29/2020 07:36 Urine culture result 50,000 CFU/ML Lactobacilli no senst done None NOTES See Note None Note: @07/27/202136: Urine culture flavia sawyer RFLXG = CULT.ADD. Reviewed by Cat Gutierrez RPA on 07/31; All test results are final unless otherwise noted. Reported Physicians [facility] Ordered by Cat Gutierrez RPA on 07/27/2020 Collected: 07/27/2020 Reported: 07/29/2020 07:37 Reported Physicians See Note None Note: Reported Physicians:Ordering: Carmina BustamanteisalAttending: Carmina GoodisalCopy To: Maya Barron Reviewed by Cat Gutierrez RPA on 07/31; All test results are final unless otherwise noted. [facility], QUANTITATIVE [facility] Ordered by Cat Gutierrez RPA on 07/27/2020 Collected: 07/27/2020 Reported: 07/27/2020 22:08 B-HCG [facility] 6210 MilliInternationalUnitsPerMilliLiter_[Arbitrary_Con (0-10) H (High) Note: [...] are final unless otherwise noted. Reported Physicians [facility] Ordered by Cat Gutierrez RPA on 07/27/2020 Collected: 07/27/2020 Reported: 07/27/2020 22:08 Reported Physicians See Note None Note: Reported Physicians:Ordering: Carmina BustamanteisalAttending: Carmina GoodisalCopy To: Maya Barron Reviewed by Cat Gutierrez RPA on 07/28; All test results are final unless otherwise noted. CBC W AUTO DIFF [facility] Ordered by Cat Gutierrez RPA on [...] Auto See Note (0-2) N (Normal) Note: [id number] Ob subpoena server: IG% IG% 100.1375 (B) Hct VFr [...] are final unless otherwise noted. Reported Physicians [facility] Ordered by Cat Gutierrez RPA on 07/27/2020 Collected: 07/27/2020 Reported: 07/27/2020 20:11 Reported Physicians See Note None Note: Reported Physicians:Ordering: Daquan BustamanteAttending: Daquan GoodCopy To: Maya Barron Reviewed by Cat Gutierrez RPA on 07/28; All test results are final unless otherwise noted. Type and Screen [facility] Ordered by Cat Gutierrez RPA on [...] are final unless otherwise noted. Reported Physicians [facility] Ordered by Cat Gutierrez RPA on 07/27/2020 Collected: 07/27/2020 Reported: 07/27/2020 20:48 Reported Physicians See Note None Note: Reported Physicians:Ordering: Daquan BustamanteAttending: Daquan GoodCopyifan To: Maya Barron Reviewed by Cat Gutierrez RPA on 07/28; All test results are final unless otherwise noted. CMP [facility] Ordered by Cat Gutierrez RPA on [...] are final unless otherwise noted. Reported Physicians [facility] Ordered by Cat Gutierrez RPA on 07/27/2020 Collected: 07/27/2020 Reported: 07/27/2020 20:37 Reported Physicians See Note None Note: Reported Physicians:Ordering: Daquan BustamanteAttending: Ariella Good To: Maya Barron Reviewed by Cat Gutierrez [facility] on 07/28; All test results are final unless otherwise noted. [facility], QUANTITATIVE [facility] Ordered by Maya Barron MD on [...] are final unless otherwise noted. Reported Physicians [facility] Ordered by Maya Barron MD on 07/26/2020 Collected: 07/26/2020 Reported: 07/26/2020 16:48 Reported Physicians See Note None Note: Reported Physicians:Ordering: Maya AlvarengaAttending: Maya Barron Reviewed by Maya Barron MD on 07/27; All test results are final unless otherwise noted. Sweta Raquel SARS/FLU [facility] Ordered by Bandar Cleveland PA-C on 07/25/2020 Collected: 07/25/2020 Reported: 07/25/2020 18:47 Sweta Raquel SARS/FLU See Note None Note: Sweta Raquel is a rapid, automated q ualitative anddifferentiation of Influenza type A,B and JMIT-OTV-1GCOD-RT-PCR testNORMAL VALUE IS "NOT DETECTED".Limitations of the sweta raquel Influenza A/B & MRMO-TZD-2rjmme method.Modifications to manufacturers recommendation and proceduresmay alter performance of the test.Negative results do not preclude Influenza A,B or SARS- KLS1lvuxylgyki and should not be used as the [...] out diseases caused by other bacterialor viral pathogens.[id number]-WzY-0 RNA Resp Ql ТАТЬЯНА+probeLNNOSNo O rganisms [id number] Organisms Detected Reviewed by Bandar Cleveland PA-C on ; All test results are final unless otherwise noted. Reported Physicians [facility] Ordered by Bandar Cleveland PA-C on 07/25/2020 Collected: 07/25/2020 Reported: 07/25/2020 18:47 Reported Physicians See Note None Note: Reported Physicians:Ordering: Janice Wilsonending: Kami Cleveland To: Health, Public Reviewed by Bandar Cleveland PA-C on ; All test results are final unless otherwise noted. Extended hours FLU/COV2 NAAT [facility] Ordered by Bandar Cleveland PA-C on 07/25/2020 Collected: 07/25/2020 Reported: 07/25/2020 18:47 Extended hours FLU/COV2 NAAT See Note None Note: TNPNo Reportable ResultLTNPNo Repo rtable TxgonnY7RWW Reviewed by Bandar Cleveland PA-C on ; All test results are final unless otherwise noted. Reported Physicians [facility] Ordered by Bandar Cleveland PA-C on 07/25/2020 Collected: 07/25/2020 Reported: 07/25/2020 18:47 Reported Physicians See Note None Note: Reported Physicians:Ordering: Connie Wilsonttending: Kami Cleveland To: Health, Public Reviewed by Bandar Cleveland PA-C on ; All test results are final unless otherwise noted. CBC W AUTO DIFF [facility] Ordered by Maya Barron MD on [...] Auto See Note (0-2) N (Normal) Note: [id number] Ob subpoena server: IG% IG% 100.1375 (B) Hct VFr [...] test results are final unless otherwise noted. [facility] Ordered by Maya Barron [...] are final unless otherwise noted. Reported Physicians [facility] Ordered by Maya Barron MD on 07/22/2020 Collected: 07/22/2020 Reported: 07/22/2020 02:00 Reported Physicians See Note None Note: Reported Physicians:Ordering: Hong LandaverdeAttending: Alon Douglas To: Maya Barron Reviewed by Maya Barron MD on 07/24; All test results are final unless otherwise noted. Sweta Raquel SARS/FLU [facility] Ordered by Maya Barron MD on 07/22/2020 Collected: 07/22/2020 Reported: 07/22/2020 01:29 Sweta Raquel SARS/FLU See Note None Note: Sweta Raquel is a rapid, automated q ualitative anddifferentiation of Influenza type A,B and EKQZ-WUI-6OTDP-RT-PCR testNORMAL VALUE IS "NOT DETECTED".Limitations of the sweta raquel Influenza A/B & KUIX-CVL-2qytwh method.Modifications to manufacturers recommendation and proceduresmay alter performance of the test.Negative results do not preclude Influenza A,B or SARS- ZJF0oumrfipbvu and should not be used as the [...] out diseases caused by other bacterialor viral pathogens.[id number]-0 RNA Resp Ql ТАТЬЯНА+probeLNNOSNo O rganisms [id number] Organisms Detected Reviewed by Maya Barron MD on 07/24; All test results are final unless otherwise noted. Reported Physicians [facility] Ordered by Maya Barron MD on 07/22/2020 Collected: 07/22/2020 Reported: 07/22/2020 01:29 Reported Physicians See Note None Note: Reported Physicians:Ordering: Anuja Landaverde: Alon Douglas To: Maya Barron Reviewed by Maya Barron MD on 07/24; All test results are final unless otherwise noted. UA W/ CULTURE IF ABNORMAL [facility] Ordered by Maya Barron MD on 07/22/2020 Collected: 07/22/2020 Reported: 07/22/2020 01:10 Urobilinogen Ur Ql See Note (0.2-1 EU/dl) None Note: 0.2 EU/dl0.2 EU/[id number] E U/dlResponsible Observer: UROBILINOGEN UROBILINOGEN 300.4500 (C) RBC # Ur Strip NEGATIVE (NEGATIVE) None Note: Responsible Observer: BLOOD BLOOD 300.4652 (C) Prot Ur Ql Strip See Note (NEGATIVE) None Note: [id number] EResponsible Observer: PROTEIN PROTEIN 300.3750 (C) Ketones Ur Ql Strip See Note (NEGATIVE) None Note: [id number] EResponsible Observer: KETONE KETONE 300.3900 (C) Bilirub Ur Ql Strip.auto See Note (NEGATIVE) None Note: [id number] EResponsible Observer: BILIRUBIN BILIRUBIN 300.4550 (C) Glucose Ur Strip.auto-mCnc NEGATIVE (NEGATIVE) None Note: Responsible Observer: GLUCOSE GLUC OSE 300.3850 (C) Appearance Ur See Note (CLEAR) None Note: CLEARCLEARLCLEARResponsible Observ er: APPEARANCE APPEARANCE 300.3400 (A) Color Ur See Note None Note: YELLOWYELLOWLYELLOWResponsible Obs erver: COLOR COLOR 300.3330 (A) Leukocyte esterase Ur Ql Strip See Note (NEGATIVE) None Note: [id number] EResponsible Observer: LEUKOCYTES LEUKOCYTES 300.3576 (C) Nitrite Ur Ql Strip See Note (NEGATIVE) None Note: [id number] EResponsible Observer: NITRITE NITRITE 300.3652 (B) pH [...] are final unless otherwise noted. Reported Physicians [facility] Ordered by Maya Barron MD on 07/22/2020 Collected: 07/22/2020 Reported: 07/22/2020 01:11 Reported Physicians See Note None Note: Reported Physicians:Ordering: Hong LandaverdeAttending: Alon Douglas To: Maya Barron Reviewed by Maya Barron MD on 07/24; All test results are final unless otherwise noted. Extended hours FLU/COV2 NAAT [facility] Ordered by Maya Barron MD on 07/22/2020 Collected: 07/22/2020 Reported: 07/22/2020 01:29 Extended hours FLU/COV2 NAAT See Note None Note: TNPNo Reportable ResultLTNPNo Repo rtable FsyfkjE7LNY Reviewed by Maya Barron MD on 07/24; All test results are final unless otherwise noted. Reported Physicians [facility] Ordered by Maya Barron MD on 07/22/2020 Collected: 07/22/2020 Reported: 07/22/2020 01:29 Reported Physicians See Note None Note: Reported Physicians:Ordering: Dominic Landaverdeending: Alon Douglas To: Maya Barron Reviewed by Maya Barron MD on 07/24; All test results are final unless otherwise noted. Urine culture [facility] Ordered by Maya Barron MD on 07/19/2020 Collected: 07/19/2020 Reported: 07/21/2020 07:48 Bacteria Ur Cult See Note None Note: NGNo growth.L1NG Reviewed by Maya Barron MD on 07/21; All test results are final unless otherwise noted. Reported Physicians [facility] Ordered by Maya Barron MD on 07/19/2020 Collected: 07/19/2020 Reported: 07/21/2020 07:49 Reported Physicians See Note None Note: Reported Physicians:Ordering: Maya AlvarengaAttending: Maya Barron Reviewed by Maya Barron MD on 07/21; All test results are final unless otherwise noted. BHCG, QUANTITATIVE [facility] Ordered by Maya Barron MD on [...] are final unless otherwise noted. Reported Physicians [facility] Ordered by Maya Barron MD on 07/17/2020 Collected: 07/17/2020 Reported: 07/17/2020 12:40 Reported Physicians See Note None Note: Reported Physicians:Ordering: Maya AlvarengaAttending: Maya Barron Reviewed by Maya Barron MD on 07/17; All test results are final unless otherwise noted. CUEVAS COVID-19 SCHOOL [facility] Ordered by Maya Barron MD on [...] molecular test, if the virus mutates in [facility] region, Covid-19 may not be detected or may bedetected less predictably.ID NOW COVID-19 is intended for testing a swab directlywithout elution in viral transport media as dilution willresult in decreased detection of low positive samples thatare near the limit of detection of the test.SWAB SAMPLES ELUTED IN VTM ARE NOT APPROPRIATE FOR USE INTHIS TEST.NOSNo Organisms [id number] Organisms Detected Reviewed by Maya Barron MD on 05/31; All test results are final unless otherwise noted. Reported Physicians [facility] Ordered by Maya Barron MD on 05/31/2020 Collected: 05/31/2020 Reported: 05/31/2020 07:08 Reported Physicians See Note None Note: Reported Physicians:Ordering: Johnny Hernándezending: Suzanne Cazares To: Maya Barron Reviewed by Maya Barron MD on 05/31; All test results are final unless otherwise noted. BHCG, QUANTITATIVE [facility] Ordered by Maya Barron MD on 05/26/2020 Collected: 05/26/2020 Reported: 05/26/2020 14:49 B-HCG [facility] [id number] MilliInternationalUnitsPerMilliLiter_[Arbitrary_Con (0-10) H (High) Note: @Instrument will [...] are final unless otherwise noted. Reported Physicians [facility] Ordered by Maya Barron MD on 05/26/2020 Collected: 05/26/2020 Reported: 05/26/2020 14:50 Reported Physicians See Note None Note: Reported Physicians:Ordering: Cara Alvarengaending: Maya Barron Reviewed by Maya Barron MD on 05/26; All test results are final unless otherwise noted. URINALYSIS [facility] Ordered by Maya Barron MD on 05/23/2020 Collected: 05/23/2020 Reported: 05/23/2020 17:19 Urobilinogen Ur Ql See Note (0.2-1 EU/dl) None Note: 0.2 EU/dl0.2 EU/[id number] E U/dlResponsible Observer: UROBILINOGEN UROBILINOGEN 300.4500 (C) RBC # Ur Strip NEGATIVE (NEGATIVE) None Note: Responsible Observer: BLOOD BLOOD 300.4650 (C) Prot Ur Ql Strip See Note (NEGATIVE) None Note: [id number] EResponsible Observer: PROTEIN PROTEIN 300.3750 (C) Ketones Ur Ql Strip See Note (NEGATIVE) None Note: [id number] EResponsible Observer: KETONE KETONE 300.3900 (C) Bilirub Ur Ql Strip.auto See Note (NEGATIVE) None Note: [id number] EResponsible Observer: BILIRUBIN BILIRUBIN 300.4550 (C) Glucose Ur Strip.auto-mCnc NEGATIVE (NEGATIVE) None Note: Responsible Observer: GLUCOSE GLUC OSE 300.3850 (C) Appearance Ur See Note (CLEAR) None Note: CLEARCLEARLCLEARResponsible Observ er: APPEARANCE APPEARANCE 300.3400 (A) Color Ur See Note None Note: YELLOWYELLOWLYELLOWResponsible Obs erver: COLOR COLOR 300.3300 (A) Leukocyte esterase Ur Ql Strip See Note (NEGATIVE) None Note: [id number] EResponsible Observer: LEUKOCYTES LEUKOCYTES 300.3575 (C) Nitrite Ur Ql Strip See Note (NEGATIVE) None Note: [id number] EResponsible Observer: NITRITE NITRITE 300.3650 (B) pH [...] are final unless otherwise noted. Urine culture [facility] Ordered by Maya Barron MD on 05/23/2020 Collected: 05/23/2020 Reported: 05/24/2020 09:24 Bacteria Ur Cult See Note None Note: NGNo growth.L1NG Reviewed by Maya Barron MD on 05/29; All test results are final unless otherwise noted. MEDMATCH [facility] Ordered by Maya Barron MD on 05/23/2020 Collected: 05/23/2020 Reported: 05/26/2020 17:09 MEDMATCH 1.000 (> or = 1.003) None Note: Responsible Observer: MEDMATCH MED MATCH 910.25188 ([facility]) Reviewed by Maya Barron MD on 05/29; All test results are final unless otherwise noted. Reported Physicians [facility] Ordered by Maya Barron MD on 05/23/2020 Collected: 05/23/2020 Reported: 05/26/2020 17:09 Reported Physicians See Note None Note: Reported Physicians:Ordering: Maya AlvarengaAttending: Maya Barron Reviewed by Maya Barron MD on 05/29; All test results are final unless otherwise noted. Varicella-Zoster IgG Antibody [facility] Ordered by Maya Barron MD on [...] Antibody Immunity Screen, ACIF.THIS TEST WAS PERFORMED AT:[facility] [address]IROHQG ME RATI,MDResponsible Observer: VARICELLA IGG Varicella-Zoster IgG Antibody [id number] 890.2844 ([employer]) NOTES See Note None Note: Patient Street Address: [address]: [place] [facility] Zip Code: [address] Reviewed by Maya Barron MD on 05/26; All test results are final unless otherwise noted. Reported Physicians [facility] Ordered by Maya Barron MD on 05/23/2020 Collected: 05/23/2020 Reported: 05/25/2020 17:11 Reported Physicians See Note None Note: Reported Physicians:Ordering: Maya AlvarengaAttending: Maya Barron Reviewed by Maya Barron MD on 05/26; All test results are final unless otherwise noted. CBC [facility] Ordered by Maya Barron MD on [...] Auto See Note (0-2) N (Normal) Note: [id number] Ob subpoena server: IG% IG% 100.1375 (B) Hct VFr [...] results are final unless otherwise noted. TSH [facility] Ordered by Maya Barron MD on 05/23/2020 Collected: 05/23/2020 Reported: 05/23/2020 18:38 TSH SerPl DL<=0.005 mIU/L-aCnc 1.87 MicroInternationalUnitsPerMilliLiter_[Arbitrary_Con (0.35-5. 50) N (Normal) Note: Responsible Observer: TSH TSH 600 .7055 (D) Reviewed by Maya Barron MD on 05/29; All test results are final unless otherwise noted. Lead (Venous) Wh.Bld [facility] Ordered by Maya Barron MD on 05/23/2020 Collected: 05/23/2020 Reported: 05/25/2020 17:11 Lead Bld-sCnc <1 (<5) None Note: See Note 1Note 1This test was faith desirtigist and its analytical performancecharacteristics have been determined by [employer]. It has not been cleared or approved by theA. This assay has been validated pursuant to the CLIAregulations and is used for clinical purposes.THIS TEST WAS PERFORMED AT:[facility] [address]VLQVHY MERATI,MDResponsible Observer: Lead, WB Lead, Whole Blood [id number] 911.2190 ([facility]) NOTES See Note None Note: Patient Street Address: [address] City: [place] [facility] Zip Code: [address] Reviewed by Maya Barron MD on 05/29; All test results are final unless otherwise noted. ncPN REF [facility] Ordered by Maya Barron MD on 05/23/2020 Collected: 05/23/2020 Reported: 05/27/2020 20:54 T pallidum Ab Ser Ql Aggl See Note (Nonreactive) None Note: [id number] onreactiveResponsible Observer: TP-PA Treponema pallidum Ab (TP-PA) [id number] 908.0286 ([facility]) HIV1 RNA SerPl Ql ТАТЬЯНА+probe See Note None Note: TNPNo Reportable ResultLTNPNo Repo rtable ResultLLEP.LIVENTNPResponsible Observer: HIV 1 RNA, QL T HIV 1 RNA, QL TMA [id number] 908.0254 ([facility]) HBV surface Ag SerPl Ql IA See Note (NON-REACTIVE) None Note: [id number]-REACTIVEResponsible Observer: HBSAG Hepatitis B Surface Antigen [id number] 910.2004 ([facility]) RUBV IgG SerPl IA-aCnc 1.80 None Note: Index Interpretatio n ----- <0.90 Not consistent with Immunity 0.90-0.99 Equivocal > or = 1.00 Consistent with ImmunityThe presence of rubella IgG antibody suggestsimmunization or past or current infection withrubella virus.THIS TEST WAS PERFORMED AT:[facility] [address]CVASUCCLAUDY ONEILLesponsible Observer: Rubella IgG Ab Rubella IgG Ab [id number] 911.2840 ([facility]) HIV1 Ab SerPlBld Ql IA.rapid See Note None Note: TNPNo Reportable ResultLTNPNo Repo rtable ResultLLEP.LIVENTNPResponsible Observer: HIV 1 AB HIV 1 AB [id number] 908.0250 ([facility]) HBsAg Confirmation See Note None Note: TNPNo Reportable ResultLTNPNo Repo rtable ResultLLEP.LIVENTNPResponsible Observer: HBsAg Confirm HBsAg Confirmation [id number] 0.2006 ([facility]) HIV (1&2) Screen, 4th Gen NON-REACTIVE [...] for this purpose.For additional information please refer tohttp://education.[employer]/faq/QFX460(This link is being provided for informational/educational purposes only.)The performance of this assay has not been clinicallyvalidated in patients less than 2 years old.Responsible Observer: HIV ABS HIV (1&2) Screen, 4th Gen [id number] 908.0228 ([facility]) Reviewed by Maya Barron MD on 05/29; All test results are final unless otherwise noted. Reported Physicians [facility] Ordered by Maya Barron MD on 05/23/2020 Collected: 05/23/2020 Reported: 05/27/2020 20:54 Reported Physicians See Note None Note: Reported Physicians:Ordering: Maya AvlarengaAttending: Maya Barron Reviewed by Maya Barron MD on 05/29; All test results are final unless otherwise noted. HCV RFX ТАТЬЯНА [facility] Ordered by Maya Barron MD on 05/23/2020 Collected: 05/23/2020 Reported: 05/25/2020 17:11 HCV Ab Ser Ql See Note (NON-REACTIVE) None Note: [id number] 7NON-REACTIVEResponsible Observer: HEP C ANTIBODY Hepatitis C Antibody [id number] 914.8305 ([facility]) HCV RNA Qualitative (ТАТЬЯНА) 0.59 (<1.00) None Note: HCV antibody was non-reactive. The re is no laboratoryevidence of HCV infection.In most cases, no further action is required. However,if recent HCV exposure is suspected, a test for HCV RNA(test code 58948) is suggested.For additional information please refer tohttp://education.[employer]/faq/UBB30i4(This link is being provided for informational/educational purposes only.)THIS TEST WAS PERFORMED AT:[facility] [address]KAJUANCHO MEANSMDResponsible Observer: SIG TO C/O SIGNAL TO CUTOFF [id number] 914.8335 ([employer]) NOTES See Note None Note: Patient Street Address: [facility] [address]Patient City: [place]: [address] Reviewed by Maya Barron MD on 05/26; All test results are final unless otherwise noted. Reported Physicians [facility] Ordered by Maya Barron MD on 05/23/2020 Collected: 05/23/2020 Reported: 05/25/2020 17:11 Reported Physicians See Note None Note: Reported Physicians:Ordering: Maya AlvarengaAttending: Maya Barron Reviewed by Maya Barron MD on 05/26; All test results are final unless otherwise noted. Type and Screen [facility] Ordered by Maya Barron MD on [...] are final unless otherwise noted. Reported Physicians [facility] Ordered by Maya Barron MD on 05/23/2020 Collected: 05/23/2020 Reported: 05/23/2020 19:32 Reported Physicians See Note None Note: Reported Physicians:Ordering: Maya AlvarengaAttending: Maya Barron Reviewed by Maya Barron MD on 05/24; All test results are final unless otherwise noted. PROGESTERONE [facility] Ordered by Maya Barron MD on [...] are final unless otherwise noted. Reported Physicians [facility] Ordered by Maya Barron MD on 04/27/2020 Collected: 04/27/2020 Reported: 04/27/2020 15:58 Reported Physicians See Note None Note: Reported Physicians:Ordering: Johnny HernándezAttending: Cristino CastellanosCopyifan To: Rubén Barron To: Cristino Castellanos Reviewed by Maya Barron MD on 04/30; All test results are final unless otherwise noted. BHCG, QUANTITATIVE [facility] Ordered by Maya Barron MD on 04/27/2020 Collected: 04/27/2020 Reported: 04/27/2020 14:40 B-HCG [facility] 2353 MilliInternationalUnitsPerMilliLiter_[Arbitrary_Con (0-10) H (High) Note: [...] are final unless otherwise noted. Reported Physicians [facility] Ordered by Maya Barron MD on 04/27/2020 Collected: 04/27/2020 Reported: 04/27/2020 14:40 Reported Physicians See Note None Note: Reported Physicians:Ordering: Aj Snowending: Jos Castellanos To: Suzanne Cazares To: Maya Barron Reviewed by Maya Barron MD on 04/30; All test results are final unless otherwise noted. CBC W AUTO DIFF [facility] Ordered by Maya Barron MD on [...] Auto See Note (0-2) N (Normal) Note: [id number] Ob subpoena server: IG% IG% 100.1375 (B) Hct VFr [...] results are final unless otherwise noted. [facility] Ordered by Maya Barron MD [...] are final unless otherwise noted. Reported Physicians [facility] Ordered by Maya Barron MD on 04/25/2020 Collected: 04/25/2020 Reported: 04/25/2020 22:11 Reported Physicians See Note None Note: Reported Physicians:Ordering: Aj Ferreiraending: Jos Rivas To: Maya Barron Reviewed by Maya Barron MD on 04/26; All test results are final unless otherwise noted. BHCG, QUANTITATIVE [facility] Ordered by Maya Barron MD on [...] are final unless otherwise noted. Reported Physicians [facility] Ordered by Maya Barron MD on 04/25/2020 Collected: 04/25/2020 Reported: 04/25/2020 22:11 Reported Physicians See Note None Note: Reported Physicians:Ordering: Aj Ferreiraending: Jos Rivas To: Maya Barron Reviewed by Maya Barron MD on 04/26; All test results are final unless otherwise noted. Urine culture [facility] Ordered by Maya Barron MD on 04/25/2020 Collected: 04/25/2020 Reported: 04/27/2020 04:50 Bacteria Ur Cult See Note None Note: NGNo growth.L1NG NOTES See Note None Note: @ NICOLE DATE was changed from 04/26 to 04/25/20@ by POMCY. Reviewed by Maay Barron MD on 04/30; All test results are final unless otherwise noted. Reported Physicians [facility] Ordered by Maya Barron MD on 04/25/2020 Collected: 04/25/2020 Reported: 04/27/2020 04:51 Reported Physicians See Note None Note: Reported Physicians:Ordering: Aj Ferreiraending: Jos Rivas To: Maya Barron Reviewed by Maya Barron MD on 04/30; All test results are final unless otherwise noted. ADD ON MICROSCOPIC [facility] Ordered by Maya Barron MD on 04/25/2020 Collected: 04/25/2020 Reported: 04/25/2020 21:54 ADD ON MICROSCOPIC See Note (0-5) None Note: NOTES OTHER/NOT INTERPRETED Bacteria UrnS Ql Micro SMALL AMOUNT Bacteria UrnS Ql Micro SMALL AMOUNT Bacteria UrnS Ql Micro L Bacteria UrnS Ql Micro Bacteria UrnS Ql Micro Bacteria UrnS Ql Micro Bacteria UrnS Ql Micro [id number] Bacteria UrnS Ql Micro Bacteria UrnS Ql [...] are final unless otherwise noted. Reported Physicians [facility] Ordered by Maya Barron MD on 04/25/2020 Collected: 04/25/2020 Reported: 04/25/2020 21:54 Reported Physicians See Note None Note: Reported Physicians:Ordering: Aj Ferreiraending: Jos Rivas To: Maya Barron Reviewed by Maya Barron MD on 04/26; All test results are final unless otherwise noted. URINALYSIS [facility] Ordered by Maya Barron MD on 04/25/2020 Collected: 04/25/2020 Reported: 04/25/2020 21:54 Urobilinogen Ur Ql See Note (0.2-1 EU/dl) None Note: 0.2 EU/dl0.2 EU/[id number] E U/dlResponsible Observer: UROBILINOGEN UROBILINOGEN 300.4500 (C) RBC # Ur Strip NEGATIVE (NEGATIVE) None Note: Responsible Observer: BLOOD BLOOD 300.4650 (C) Prot Ur Ql Strip See Note (NEGATIVE) None Note: [id number] EResponsible Observer: PROTEIN PROTEIN 300.3750 (C) Ketones Ur Ql Strip See Note (NEGATIVE) None Note: [id number] EResponsible Observer: KETONE KETONE 300.3900 (C) Bilirub Ur Ql Strip.auto See Note (NEGATIVE) None Note: [id number] EResponsible Observer: BILIRUBIN BILIRUBIN 300.4550 (C) Glucose Ur Strip.auto-mCnc NEGATIVE (NEGATIVE) None Note: Responsible Observer: GLUCOSE GLUC OSE 300.3850 (C) Appearance Ur See Note (CLEAR) None Note: CLEARCLEARLCLEARResponsible Observ er: APPEARANCE APPEARANCE 300.3400 (A) Color Ur See Note None Note: YELLOWYELLOWLYELLOWResponsible Obs erver: COLOR COLOR 300.3300 (A) Leukocyte esterase Ur Ql Strip See Note (NEGATIVE) None Note: [id number]@DO MICR O!!!!Responsible Observer: LEUKOCYTES LEUKOCYTES 300.3575 (C) Nitrite Ur Ql Strip See Note (NEGATIVE) None Note: [id number] EResponsible Observer: NITRITE NITRITE 300.3650 (B) pH [...] are final unless otherwise noted. Reported Physicians [facility] Ordered by Maya Barron MD on 04/25/2020 Collected: 04/25/2020 Reported: 04/25/2020 21:54 Reported Physicians See Note None Note: Reported Physicians:Ordering: Aj Ferreiraending: Jos Rivas To: Maya Barron Reviewed by Maya Barron MD on 04/26; All test results are final unless otherwise noted. BHCG, QUANTITATIVE [facility] Ordered by Maya Barron MD on [...] are final unless otherwise noted. Reported Physicians [facility] Ordered by Maya Barron MD on 04/18/2020 Collected: 04/18/2020 Reported: 04/18/2020 15:11 Reported Physicians See Note None Note: Reported Physicians:Ordering: Maya AlvarengaAttending: Maya Barron Reviewed by Maya Barron MD on 04/19; All test results are final unless otherwise noted. ADD ON MICROSCOPIC [facility] Ordered by Maya Barron MD on 04/16/2020 Collected: 04/16/2020 Reported: 04/16/2020 23:51 ADD ON MICROSCOPIC See Note (0-5) None Note: NOTES OTHER/NOT INTERPRETED Bacteria UrnS Ql Micro SMALL AMOUNT Bacteria UrnS Ql Micro SMALL AMOUNT Bacteria UrnS Ql Micro L Bacteria UrnS Ql Micro Bacteria UrnS Ql Micro Bacteria UrnS Ql Micro Bacteria UrnS Ql Micro [id number] Bacteria UrnS Ql Micro Bacteria UrnS Ql [...] are final unless otherwise noted. Reported Physicians [facility] Ordered by Maya Barron MD on 04/16/2020 Collected: 04/16/2020 Reported: 04/16/2020 23:52 Reported Physicians See Note None Note: Reported Physicians:Ordering: Jose E JoseodAttending: Damon VinodCopy To: Maya Barron Reviewed by Maya Barron MD on 04/17; All test results are final unless otherwise noted. UA W/ CULTURE IF ABNORMAL [facility] Ordered by Maya Barron MD on 04/16/2020 Collected: 04/16/2020 Reported: 04/16/2020 23:51 Urobilinogen Ur Ql See Note (0.2-1 EU/dl) None Note: 0.2 EU/dl0.2 EU/[id number] E U/dlResponsible Observer: UROBILINOGEN UROBILINOGEN 300.4500 (C) RBC # Ur Strip NEGATIVE (NEGATIVE) None Note: Responsible Observer: BLOOD BLOOD 300.4652 (C) Prot Ur Ql Strip See Note (NEGATIVE) None Note: [id number] EResponsible Observer: PROTEIN PROTEIN 300.3750 (C) Ketones Ur Ql Strip See Note (NEGATIVE) None Note: [id number] ble Observer: KETONE KETONE 300.3900 (C) Bilirub Ur Ql Strip.auto See Note (NEGATIVE) None Note: [id number] EResponsible Observer: BILIRUBIN BILIRUBIN 300.4550 (C) Glucose Ur Strip.auto-mCnc NEGATIVE (NEGATIVE) None Note: Responsible Observer: GLUCOSE GLUC OSE 300.3850 (C) Appearance Ur See Note (CLEAR) None Note: CLEARCLEARLCLEARResponsible Observ er: APPEARANCE APPEARANCE 300.3400 (A) Color Ur See Note None Note: YELLOWYELLOWLYELLOWResponsible Obs erver: COLOR COLOR 300.3330 (A) Leukocyte esterase Ur Ql Strip See Note (NEGATIVE) None Note: [id number] E@DO MICRO!!!!A Culture has been added to this specimen per established criteriaResponsible Observer: LEUKOCYTES LEUKOCYTES 300.3576 (C) Nitrite Ur Ql Strip See Note (NEGATIVE) None Note: [id number] EResponsible Observer: NITRITE NITRITE 300.3652 (B) pH [...] are final unless otherwise noted. Urine culture [facility] Ordered by Maya Barron MD on 04/16/2020 Collected: 04/16/2020 Reported: 04/18/2020 06:47 Urine culture result See Note None Note: Less than 10,000 CFU/MLNormal Comm ensal FloraProbable contaminants no senst done NOTES See Note None Note: @04/16/20 2351: Urine culture adde d. RFLXG = CULT.ADD. Reviewed by Maya Barron MD on 04/18; All test results are final unless otherwise noted. Reported Physicians [facility] Ordered by Maya Barron MD on 04/16/2020 Collected: 04/16/2020 Reported: 04/18/2020 06:47 Reported Physicians See Note None Note: Reported Physicians:Ordering: Damon , VinodAttending: Damon VinodCopy To: Maya Barron Reviewed by Maya Barron MD on 04/18; All test results are final unless otherwise noted. CBC W AUTO DIFF [facility] Ordered by Maya Barron MD on [...] Auto See Note (0-2) N (Normal) Note: [id number] Ob subpoena server: IG% IG% 100.1375 (B) Hct VFr [...] test results are final unless otherwise noted. [facility] [place] Ordered by Maya Barron [...] are final unless otherwise noted. Reported Physicians [facility] Ordered by Maya Barron MD on 04/16/2020 Collected: 04/16/2020 Reported: 04/16/2020 22:47 Reported Physicians See Note None Note: Reported Physicians:Ordering: Damon , VinodAttending: Damon VinodCopy To: Maya Barron Reviewed by Maya Barron MD on 04/17; All test results are final unless otherwise noted. CMP [facility] Ordered by Maya Barron MD on [...] are final unless otherwise noted. Reported Physicians [facility] Ordered by Maya Barron MD on 04/16/2020 Collected: 04/16/2020 Reported: 04/16/2020 22:44 Reported Physicians See Note None Note: Reported Physicians:Ordering: Randy Joseending: Alix Jose To: Maya Barron Reviewed by Maya Barron MD on 04/17; All test results are final unless otherwise noted. LIPASE [facility] Ordered by Maya Barron MD on 04/16/2020 Collected: 04/16/2020 Reported: 04/16/2020 22:44 Lipase SerPl-cCnc 107 enzyme_unit_per_liter (73-393) N (Normal) Note: Responsible Observer: Lipase Lipas e 400.2310 (G) Reviewed by Maya Barron MD on 04/17; All test results are final unless otherwise noted. Reported Physicians [facility] Ordered by Maya Barron MD on 04/16/2020 Collected: 04/16/2020 Reported: 04/16/2020 22:44 Reported Physicians See Note None Note: Reported Physicians:Ordering: Randy Joseending: Alix Jose To: Maya Barron Reviewed by Maya Barron MD on 04/17; All test results are final unless otherwise noted. Type and Screen [facility] Ordered by Maya Barron MD on [...] are final unless otherwise noted. Reported Physicians [facility] Ordered by Maya Barron MD on 04/16/2020 Collected: 04/16/2020 Reported: 04/16/2020 23:09 Reported Physicians See Note None Note: Reported Physicians:Ordering: Randy Joseending: Mat JoseCopyifan To: Maya Barron Reviewed by Maya Barron MD on 04/17; All test results are final unless otherwise noted. [facility] Ordered by Maya Barron MD on 04/10/2020 [address] [place], [address] Collected: 04/10/2020 Reported: 04/11/2020 11:35 tel :[phone] ext. 1500 GRAN# 1.9 /mm3 (2.5-7.5) L [...] by Maya Barron MD on 04/10/2020 [address] [place], [address] Collected: 04/10/2020 Reported: 04/11/2020 11:35 tel :[phone] ext. 1500 Albumin 4.2 g/dl (3.4-5.0) None [...] by Maya Barron MD on 04/10/2020 [address] [place], [address] Collected: 04/10/2020 Reported: 04/11/2020 11:35 tel :[phone] ext. 1500 TSH 1.336 uIu/mL (0.5-5.8) None Note: Responsible Observer: AW Reviewed by Maya Barron MD on 04/12; All test results are final unless otherwise noted. -[facility] Ordered by Maya Barron MD on 02/25/2020 Collected: 02/25/2020 Reported: 02/28/2020 15:53 C trach rRNA XXX Ql ТАТЬЯНА+probe See Note (NOT DETECTED) None Note: NOT DETECTEDNOT DETECTEDLNOT DETEC TEDNOT [id number] DETECTEDResponsible Observer: C.Trach RNA Chlamydia trachomatis DNA-ТАТЬЯНА [id number] 913.9900 (Gigabit Squared) N gonorrhoea rRNA XXX Ql ТАТЬЯНА+probe See Note (NOT DETECTED) None Note: NOT DETECTEDNOT DETECTEDLNOT DETEC TEDNOT [id number] DETECTEDResponsible Observer: GC RNA Neisseria gonorrhoeae DNA -ТАТЬЯНА [id number] 913.9905 (Gigabit Squared) Chlamydia/GC DNA Note SEE NOTE None Note: The analytical performance charact eristics of thisassay, when used to test SurePath(TM) specimens have beendetermined by [employer]. The modifications havenot been cleared or approved by the FDA. This assay hasbeen validated pursuant to the CLIA regulations and isused for clinical purposes.For additional information, please refer tohttps://education.[employer]/faq/JJI536(This link is being provided for information/educational purposes only.)THIS TEST WAS PERFORMED AT:[facility] [id number]- 700KAJUANCHO MEANS,MDResponsible Observer: GC/Chlam Note Chlamydia/GC DNA Note [id number] 913.9907 (A) NOTES See Note None Note: Source Of Specimen: URINE Reviewed by Maya Barron MD on 02/28; All test results are final unless otherwise noted. Reported Physicians [facility] Ordered by Maya Barron MD on 02/25/2020 Collected: 02/25/2020 Reported: 02/28/2020 15:54 Reported Physicians See Note None Note: Reported Physicians:Ordering: Maya AlvarengaAttending: Maya Barron Reviewed by Maya Barron MD on 02/28; All test results are final unless otherwise noted. Urine culture-[facility] Ordered by Maya Barron MD on 02/25/2020 Collected: 02/25/2020 Reported: 02/26/2020 13:38 Urine culture result No growth None Reviewed by Maya Barron MD on 02/27; All test results are final unless otherwise noted. Reported Physicians [facility] Ordered by Maya Barron MD on 02/25/2020 Collected: 02/25/2020 Reported: 02/26/2020 13:39 Reported Physicians See Note None Note: Reported Physicians:Ordering: Maya AlvarengaAttending: Maya Barron Reviewed by Maya Barron MD on 02/27; All test results are final unless otherwise noted. Test Office Lab Ordered by Maya Barron MD on 02/25/2020 [address] [place], [address] Specimen Source: Urine Collected: 02/25/2020 Reporte d: 02/25/2020 11:15 tel:[phone] Urine HCG neg (negative) N (Normal) Reviewed by Maya Barron MD on 02/24; All test results are final unless otherwise noted. Urinalysis w/out microscopy Office Lab Ordered by Maya Barron MD on 02/25/2020 [address] [place], [address] Specimen Source: Urine Collected: 02/25/2020 Reporte d: 02/25/2020 11:02 tel:[phone] bilirubin neg (neg) N (Normal) blood neg [...] otherwise noted. UA W/ CULTURE IF ABNORMAL [facility] Ordered by Maya Barron MD on 01/29/2020 Collected: 01/29/2020 Reported: 01/29/2020 00:22 Urobilinogen Ur Ql See Note (0.2-1 EU/dl) None Note: 1 EU/dl1 EU/dlL1 EU/dl1 EU/[id number] EU/dlResponsible Observer: UROBILINOGEN UROBILINOGEN 300.4500 (C) RBC # Ur Strip NEGATIVE (NEGATIVE) None Note: Responsible Observer: BLOOD BLOOD 300.4652 (C) Prot Ur Ql Strip See Note (NEGATIVE) None Note: NEGATIVENEGATIVELNEGATIVENEGATIVEL [id number] Observer: PROTEIN PROTEIN 300.3750 (C) Ketones Ur Ql Strip See Note (NEGATIVE) None Note: 15 mg/dL15 mg/dLL15 mg/dL15 mg/dLL [id number] mg/dLResponsible Observer: KETONE KETONE 300.3900 (C) Bilirub Ur Ql Strip.auto See Note (NEGATIVE) None Note: NEGATIVENEGATIVELNEGATIVENEGATIVEL [id number] Observer: BILIRUBIN BILIRUBIN 300.4550 (C) Glucose Ur Strip.auto-mCnc NEGATIVE (NEGATIVE) None Note: Responsible Observer: GLUCOSE GLUC OSE 300.3850 (C) Appearance Ur See Note (CLEAR) None Note: CLEARCLEARLCLEARCLEARLCLEARRespons ible Observer: APPEARANCE APPEARANCE 300.3400 (A) Color Ur See Note None Note: YELLOWYELLOWLYELLOWYELLOWLYELLOWRe sponsible Observer: COLOR COLOR 300.3330 (A) Leukocyte esterase Ur Ql Strip See Note (NEGATIVE) None Note: NEGATIVENEGATIVELNEGATIVENEGATIVEL [id number] Observer: LEUKOCYTES LEUKOCYTES 300.3576 (C) Nitrite Ur Ql Strip See Note (NEGATIVE) None Note: NEGATIVENEGATIVELNEGATIVENEGATIVEL [id number] Observer: NITRITE NITRITE 300.3652 (B) pH Ur [...] are final unless otherwise noted. Reported Physicians [facility] Ordered by Maya Barron MD on 01/29/2020 Collected: 01/29/2020 Reported: 01/29/2020 00:22 Reported Physicians See Note None Note: Reported Physicians:Ordering: Yoli NapolesAttending: Charles Silva To: Maya Barron Reviewed by Maya Barron MD on 01/30; All test results are final unless otherwise noted. BHCG,SERUM QUALITATIVE [facility] Ordered by Maya Barron MD on [...] are final unless otherwise noted. Reported Physicians [facility] Ordered by Maya Barron MD on 01/28/2020 Collected: 01/28/2020 Reported: 01/28/2020 22:58 Reported Physicians See Note None Note: Reported Physicians:Ordering: Yoli NapolesAttending: Charles Silva To: Maya Barron Reviewed by Maya Barron MD on 01/30; All test results are final unless otherwise noted. CBC W AUTO DIFF [facility] Ordered by Maya Barron MD on [...] Auto See Note (0-2) N (Normal) Note: [id number] ible Observer: IG% IG% 100.1375 (B) Hct [...] results are final unless otherwise noted. [facility] Ordered by Maya Barron MD [...] C reatinine 400.1600 (G) Reviewed by Maya Braron MD on 01/30; All test results are final unless otherwise noted. Reported Physicians [facility] Ordered by Maya Barron MD on 01/28/2020 Collected: 01/28/2020 Reported: 01/28/2020 23:00 Reported Physicians See Note None Note: Reported Physicians:Ordering: Cliff Napolesending: Charles Silva To: Maya Barron Reviewed by Maya Barron MD on 01/30; All test results are final unless otherwise noted. Urinalysis w/out microscopy Office Lab Ordered by Maya Barron MD on [address] [place] [address], [address] Specimen Source: Urine Collected: Reported: 2020 11:41 tel: bilirubin NEGATIVE (neg) N (Normal) blood NEGATIVE (neg) N (Normal) glucose NEGATIVE (neg) N (Normal) ketone NEGATIVE (neg) N (Normal) leukocytes MODERATE A (Abnormal) nitrites NEGATIVE (neg) N (Normal) pH 5.0 (5.0-8.5) N (Normal) protein NEGATIVE (neg-trace) N (Normal) specific gravity 1.020 (1.005-1.025) N (Normal) urobilinogen .2 (.2-1) N (Normal) Reviewed by Myaa Barron MD on 07/19; All test results are final unless otherwise noted. Test Office Lab Ordered by Maya Barron MD on 12/27/2019 [address] [place], [address] Specimen Source: Urine Collected: Reported: 2019 13:46 tel: Urine HCG negative (negative) N (Normal) Reviewed [...] weeks gestatio n of Maya Barron MD [facility], [facility] 12/05/2020 REVISIT- office visit KAYLEIGH 22 weeks gestatio n of Maya Barron MD [facility], [facility] 11/28/2020 no charge procedure NC Tension-type headache, unspe cified, intractable Maya Barron MD [facility], [facility] 11/21/2020 REVISIT- office visit KAYLEIGH 21 weeks gestatio n of Maya Barron MD [facility], [facility] 11/21/2020 REVISIT- office visit KAYLEIGH 20 weeks gestatio n of Maya Barron MD [facility], [facility] 11/14/2020 no charge procedure NC Palpitations Maya Barron MD [facility], [facility] 11/03/2020 no charge procedure NC Palpitations Maya Barron MD [facility], [facility] 10/31/2020 REVISIT- office visit KAYLEIGH 18 weeks gestatio n of Maya Barron MD [facility], [facility] 10/31/2020 REVISIT- office visit KAYLEIGH 17 weeks gestatio n of Maya Barron MD [facility], [facility] 10/24/2020 no charge procedure NC Palpitations Maya Alvarez [facility], [facility] 10/17/2020 REVISIT- office visit KAYLEIGH 16 weeks gestatio n of Maya Barron MD [facility], [facility] 10/17/2020 Holter Monitor, Physician review & interpretation only 16109 Palpitations Michel Villalba MD [facility] Outpt 10/11/2020 REVISIT- office visit KAYLEIGH 15 weeks gestatio n of Maya Barron MD [facility], [facility] 10/11/2020 REVISIT- office visit KAYLEIGH 13 weeks gestatio n of Maya Barron MD [facility], [facility] 09/27/2020 REVISIT- office visit KAYLEIGH 12 weeks gestatio n of Maya Barron MD [facility], [facility] 09/19/2020 EKG- Electrocardiogram/12 lead 04174 Chest pain, unspe cified Cat Gutierrez [facility], [facility] 09/11/2020 REVISIT- office visit KAYLEIGH 10 weeks gestatio n of Cat Gutierrez [facility], [facility] 09/05/2020 REVISIT- office visit KAYLEIGH 8 weeks gestation of Maya Barron MD [facility], [facility] 08/22/2020 Urinalysis w/o Microscopy (Distinct Seperate service-same da y) 15387 Frequency of micturition- Urinary Frequency Maya Barron MD [facility], [facility] 08/15/2020 RAPID STREP 97384 Acute pharyngitis, unspecified Maya Barron MD [facility], [facility] 08/15/2020 Initial Obstetrical Care Office Visit OB Le ss than 8 weeks gestation of Cat Gutierrez [facility], [facility] 021 Urinalysis w/o Microscopy 53216 Frequency of micturiti on- Urinary Frequency Maya Barron MD [facility], [facility] 07/19/2020 REVISIT- office visit KAYLEIGH Threatened Alicja Barron MD [facility], [facility] 05/26/2020 NO CHARGE- Nurse visit- OB establish [employer] Thr eatened , state, incidental Maya Barron MD [facility], [facility] 020 General Health Panel( CMP, CBC, TSH) 87344 Dysmenorrhe a, unspecified Maya Barron MD [facility], [facility] 04/10/2020 Venipuncture (routine) 80239 Dysmenorrhea, unspecified Mariela Barron MD [facility], [facility] 04/10/2020 Brief Emotional Behavior Assessment ( add -59 mod) 46111 Screening for Mental Health/Behavioral Disorder, Unspecified Maya Barron MD [facility], [facility] 04/10/2020 Urine Test 35435 Pelvic and perineal pain, Frequency of micturition- Urinary Frequency Maya Barron MD [facility], [facility] 02/25/2020 Urinalysis w/o Microscopy 15943 Frequency of micturiti on- Urinary Frequency Maya Barron MD [facility], [facility] 02/25/2020 Urine Test 41171 Amenorrhea, unspecified Maya Barron MD [facility], [facility] 12/27/2019 Surgical History Last Updated No [...] Time Check-Out Time D iagnosis telephone conversation Maya Barron MD [facility] Vinh caruso [facility] 12/19/2020 12/14/2020 2:14PM 12/14/2020 11:59PM Fracture of Fifth Ce rvical Vertebral Body, History of Psychiatric Disorders, Reactive Airway Disease Problem visit - not contagious Bandar Cleveland PA-C [facility], [facility] 12/14/2020 2:08PM 2:52PM Tension-type Headach e REVISIT- Routine (OB) Visit Maya Barron MD [facility], [facility] 12/05/2020 11:17AM 12:08PM REVISIT- Routine (OB) Visit Maya Barron MD [facility], [facility] 11/28/2020 1:34PM 1:51PM Chronic Care Mgt - Office Visit Maya Barron MD [facility], [facility] 11/21/2020 2:10PM 2:35PM Fracture of Fift h Cervical Vertebral Body, History of Psychiatric Disorders, Reactive Airway Disease REVISIT- Routine (OB) Visit Maya Barron MD [facility], [facility] 11/21/2020 11:33AM 12:01PM REVISIT- Routine (OB) Visit Maya Barron MD [facility], [facility] 11/14/2020 9:55AM 10:36AM REVISIT- Routine (OB) Visit Maya Barron MD [facility], [facility] 11/07/2020 11:42AM 12:02PM OB- ILL VISIT Maya Barron MD [facility], [facility] 11/03/2020 3:45PM 4:29PM , Generalized Anxie ty Disorder, Panic Disorder, Chest Pain Chronic Care Mgt - Office Visit Maya Barron MD [facility], [facility] 11/03/2020 2:37PM 3:38PM Chronic Care Mgt - Office Visit Maya Barron MD [facility], [facility] 10/31/2020 3:23PM 3:24PM Fracture of Fift h Cervical Vertebral Body, History of Psychiatric Disorders, Reactive Airway Disease REVISIT- Routine (OB) Visit Maya Barron MD [facility], [facility] 10/31/2020 9:54AM 10:24AM Chronic Care Mgt - Office Visit Maya Barron MD [facility], [facility] 10/24/2020 2:16PM 11:59PM REVISIT- Routine (OB) Visit Maya Barron MD [facility], [facility] 10/24/2020 10:00AM 10:47AM REVISIT- Routine (OB) Visit Maya Barron MD [facility], [facility] 10/17/2020 11:24AM 12:12PM Chronic Care Mgt - Office Visit Maya Barron MD [facility], [facility] 10/17/2020 11:25AM 12:11PM Fracture of Fift h Cervical Vertebral Body, History of Psychiatric Disorders, Reactive Airway Disease REVISIT- Routine (OB) Visit Maya Barron MD [facility], [facility] 10/11/2020 9:44AM 10:15AM OB- ILL VISIT Maya Barron MD [facility], [facility] 10/04/2020 2:12PM 2:31PM Presyncope Syndrome, Tachyca rdia, Palpitations, Difficulty Breathing (Dyspnea), Weeks of Gestation - 14 REVISIT- Routine (OB) Visit Maya Barron MD [facility], [facility] 09/27/2020 1:36PM 1:59PM telephone conversation Michel Villalba MD 09/19/2020 9:43PM 09/19/2020 11:59PM Atypical Chest Pain REVISIT- Routine (OB) Visit Maya Barron MD [facility], [facility] 09/19/2020 9:48AM 10:14AM REVISIT- Routine (OB) Visit Cat Gutierrez [facility], [facility] 09/11/2020 3:22PM 4:16PM REVISIT- Routine (OB) Visit Cat Gutierrez [facility], [facility] 09/05/2020 9:37AM 10:00AM TCMNV phone call- NO CHARGE Cat Gutierrez [facility] 09/04/2020 09/05/2020 4:54PM 09/05/2020 11:59PM [Patient Encounter] Cat De Pazing [facility] 08/31/2020 021 2:21PM 08/22/2020 11:59PM telephone conversation Michel Villalba MD 08/2808/22/2020 11:00AM 08/22/2020 11:59PM REVISIT- Routine (OB) Visit Maya Barron MD [facility] 08/22/2020 1:56PM 2:19PM sick visit Maya Barron MD [facility] 0 08/15/2020 9:36AM 10:12AM Upper Respiratory Infection Acute, Pollakiuria Obstetrics/ first visit Cat Betzaida Brenda [facility], [facility] 08/09/2020 9:22AM 10:56AM followup Cat M Brenda [facility] 0 08/02/2020 10:18AM 11:42AM Generalized Anxiety Disorder , Early Stage, Abdominal Pain telephone conversation Michel Villalba MD 07/26/2020 7:59AM 07/26/2020 11:59PM [Patient Encounter] Cat De Pazing [facility] 07/28/2020 021 2:20PM 07/26/2020 11:59PM followup Maya Barron MD [facility] 0 07/26/2020 10:39AM 11:02AM , Generalized Anxie ty Disorder sick visit Bandar Cleveland PA-C [facility] 3:36PM 4:30PM Pyrexia followup Maya Barron MD [facility] 0 07/19/2020 10:52AM 11:30AM , Generalized Anxie ty Disorder, Pollakiuria followup Maya Barron MD [facility] 1 09/11/2019 10:43AM 11:14AM Atypical Chest Pain, Adjustm ent Disorder followup Maya Barron MD [facility] 1 08/07/2019 10:43AM 10:59AM Missed followup Maya Barron MD [facility] 05/26 1:45PM 2:11PM with Threatened Problem visit - not contagious Maya Barron MD [facility] 05/24/2020 11:13AM 12:00PM with T hreatened [Patient Encounter] Maya Barron MD 05/24/2020 020 10:17AM 04/19/2020 11:59PM followup Maya Barron MD [facility] 1 11:51AM 12:08PM ANNUAL PE-followup /30 Maya Barron MD [facility] 04/10/2020 8:42AM 9:13AM Routine History and Physical Adult (18 - 64 Yrs), Dysmenorrhea sick visit Maya Barron MD [facility] 0 03/06/2020 3:32PM 3:42PM Sinusitis sick visit Maya Barron MD [facility] 0 02/25/2020 10:46AM 11:12AM Pollakiuria, Female Pelvic P ain followup Maya Barron MD [facility] 01/31 2:25PM 2:51PM Back Strain followup Maya Barron MD [facility] 12/26 1:25PM 1:42PM Amenorrhea, Clostridium Difficile Insurance Includes: Active Insurance Policies Plan Name Member ID Group # Subscriber Relationship Effective Da greg 1 - MANAGED MEDICAID [facility] [id number] Georgiana Nguyen 2020 - Unknown Advance Directives Includes: Current Advance DirectivesNo Advance Directives Recorded Health Concerns Includes: Active Health ConcernsNo Active Health Concerns Recorded Goals Includes: Active GoalsNo Active Goals Recorded Interventions Includes: Interventions for active GoalsNo Interventions Recorded Evaluations & Outcomes Includes: Evaluations & Outcomes for active GoalsNo Outcomes Recorded
--- OUTSIDE RECORDS SUMMARY | 2021-04-29 16:54 | CCD ---
Author Author [facility] Organization [facility] Address [address] [place] [address] Phone Care Team Providers Care Quality Assurance Monitor Final Name Role Phone Anderson GILL, Maya Duke PP [phone] Kimberly White DPM Unavailable Unavailable Reason for [...] Cervicalgia neck pain 12/04/20 Maya Barron MD Future Appointments Date Time Location Provider REVISIT- [facility]ine [facility]OB[facility] Chopra MD REVISIT- Routine (OB) [facility]/16/2021 [facility]AM [facility], SOLE Barron MD REVISIT- Routine (OB) Visit 01/23/2021 10:00AM [facility], SOLE Barron MD REVISIT- Routine (OB) Visit 01/30/2021 10:00AM [facility], SOLE Barron MD REVISIT- Routine (OB) Visit 02/06/2021 10:00AM [facility], SOLE Barron MD REVISIT- Routine (OB) Visit 02/13/2021 10:00AM [facility], SOLE Barron MD REVISIT- Routine (OB) Visit 02/20/2021 11:45AM [facility], SOLE Barron MD REVISIT- Routine (OB) Visit 02/27/2021 10:00AM [facility], SOLE Barron MD REVISIT- Routine (OB) Visit 03/06/2021 10:00AM [facility], SOLE Barron MD REVISIT- Routine (OB) Visit 03/13/2021 10:00AM [facility], SOLE Barron MD REVISIT- Routine (OB) Visit 03/20/2021 10:00AM [facility], SOLE Barron MD REVISIT- Routine (OB) Visit 03/27/2021 10:00AM [facility], SOLE Barron MD Future Tests Order Diagnosis Results Due Ordering Provid er Referral - Physical Therapy Physical Therapy Tension-type headache, unspecified, intractable 03/14/21 Bandar Cleveland PA-C Findings Encounter Date Community resources No referrals needed at this time Chronic Care Mgt - Office Visit with Myaa Barron MD 10/17/2020 Follow-up visit date 10/17/2020 PCP mukuli t and [facility] visit (Dr. Barron and Esther Howell,EHSAN) Chronic [...] for physical therapy service ANNUAL PE-followup with Maay Barron MD 04/07/2019 Discussed treatment plan with the marifer ent. Exam findings consistent with muscle strain, no cardiovascular component, risk factors or concerning exam findings. Recommended moist heat, limiting aggravating activities and to monitor for now. See back with any worsening or persistent symptoms, questions or concerns sick visit with Cat Gutierrez [facility] 10/30/2018 Assessments Includes: Assessments for all patient encounters Findings Encounter Date Tension-type headache , she tried tyleno l [...] surance provided today. 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 [Encounter for general adult medical examination with abnormal findings] ANNUAL PE-followup exam with Maya Barron MD 04/07/2019 Vaginal candidiasis sick visit with [facility] 02/11 Pharyngitis urgent visit with Bandar Cleveland PA-C 2018 Sprained ribs ; left sick visit with [facility] Strain of muscle and tendon of front wall of thorax si ck visit with [facility] 10/30/2018 Fracture of fifth cervical vertebral body No Fault with [facility] ellie [facility] 03/04/2018 Late effects of accident No Fault with [facility] 0 03/04/2018 Instructions Instructions not supported [...] Maya Barron MD Diagnosis: 1 PO QD HM Vitamin D3 50 MCG (2000 UT) Oral Capsule 11/20/2020 Provider: Maya Barron MD Diagnosis: 1 PO QD Ferrous Sulfate 325 (65 Fe) MG Oral Tablet 11/20/2020 Provider: Maya Barron MD Diagnosis: 1 PO BID Sertraline HCl 100 MG Oral Tablet 10/24/2020 [...] Tablet 08/10/2020 - 08/17/2020 Pro vider: Cat Gutierrze RPA Diagnosis: 1 PO BID Sertraline HCl 50 MG Oral Tablet 08/02/2020 - 08/22/2020 Pro vider: Cat Gutierrez [facility] Diagnosis: as directed - Take [...] Cream 11/05/2019 - 10/2019 Provider: Cat Gutierrez [facility] Diagnosis: apply bid to affected area Meloxicam 7.5MG Oral Tablet 04/07/2019 - 11/15/2019 Provider : Maya Barron MD Diagnosis: 1 PO QD Sprintec 28 0.25-35MG-MCG Oral Tablet 04/01/2019 - 05/04/202 0 Provider: Diagnosis: Diflucan 150MG Oral Tablet 02/26/2019 - 02/28/2019 Provider: Cat Gutierrez RPA Diagnosis: 1 PO QD Medications Administered Includes: Administered Medications in patient's chartNo Administered Medications Recorded Vital Signs Includes: Vital Signs from 12/15/2019 through 12/14/2020 Vital Name 12/14/2020 02:15P 12/05/2020 11:47A 11/28/2020 [...] Pain Level 6 Results Includes: Results from 12/15/2019 through 12/14/2020 TROPONIN T [facility] Ordered by Maya Barron MD on 12/09/2020 Collected: 12/09/2020 Reported: 12/09/2020 01:32 TROPONIN T <0.01 NG/ML (0.00 - 0.10) None Note: TROPONIN T0.1 ng/ml Recommended as the clinical threshold value forTroponin T.Responsible Observer: (AB) Reviewed by Maya Barron MD on 12/12; All test results are final unless otherwise noted. Reported Physicians [facility] Ordered by Maya Barron MD on 12/09/2020 Collected: 12/09/2020 Reported: 12/09/2020 01:32 Reported Physicians See Note None Note: Reported Physicians:Ordering: MARQUISE TOMLINSON CAttending: MARQUISE SOTOConsulting: Rubén BARRON To: MARQUISE SOTOCopyifan To: MARQUISE SOTO Reviewed by Maya Barron MD on 12/12; All test results are final unless otherwise noted. COMPREHENSIVE METABOLIC PANEL [facility] Ordered by Maya Barron [...] are final unless otherwise noted. Reported Physicians [facility] Ordered by Maya Barron MD on 12/08/2020 Collected: 12/08/2020 Reported: 12/08/2020 22:36 Reported Physicians See Note None Note: Reported Physicians:Ordering: MARQUISE TOMLINSON CAttending: MARQUISE SOTOConsulting: Rubén BARRON To: MARQUISE SOTOCopyifan To: MARQUISE SOTO Reviewed by Maya Barron MD on 12/12; All test results are final unless otherwise noted. TROPONIN T [facility] Ordered by Maya Barron MD on 12/08/2020 Collected: 12/08/2020 Reported: 12/08/2020 22:36 TROPONIN T <0.01 NG/ML (0.00 - 0.10) None Note: TROPONIN T0.1 ng/ml Recommended as the clinical threshold value forTroponin T.Responsible Observer: (AB) Reviewed by Maya Barron MD on 12/12; All test results are final unless otherwise noted. Reported Physicians [facility] Ordered by Maya Barron MD on 12/08/2020 Collected: 12/08/2020 Reported: 12/08/2020 22:36 Reported Physicians See Note None Note: Reported Physicians:Ordering: MARQUISE TOMLINSON CAttending: MARQUISE SOTOConopaling: Rubén BARRON To: Clare SOTO To: MARQUISE SOTO Reviewed by Maya Barron MD on 12/12; All test results are final unless otherwise noted. LIPASE SERUM [facility] Ordered by Maya Barron MD on 12/08/2020 Collected: 12/08/2020 Reported: 12/08/2020 22:32 LIPASE 33 U/L (13 - 60) None Note: Responsible Observer: (AB) Reviewed by Maya Barron MD on 12/12; All test results are final unless otherwise noted. Reported Physicians [facility] Ordered by Maya Barron MD on 12/08/2020 Collected: 12/08/2020 Reported: 12/08/2020 22:32 Reported Physicians See Note None Note: Reported Physicians:Ordering: MARQUISE TOMLINSON CAttending: MARQUISE SOTOConelissa: Rubén BARRON To: Clare SOTO To: MARQUISE SOTO Reviewed by Maya Barron MD on 12/12; All test results are final unless otherwise noted. TROPONIN [facility] Ordered by Maya Barron MD on 12/01/2020 Collected: 12/01/2020 Reported: 12/01/2020 18:18 Troponin I SerPl-mCnc Less Than 0.015 (0.00-0.09) N (Normal) Note: Less than 0.09 NG/ML Negative 0.10 - 0.77 NG/ML High Risk0.78 NG/ML or Greater PositiveThe WHO defined the cutoff (definition for diagnosis of [place])for this method as 0.78 ng/ml.Responsible Observer: Troponin I Troponin I 600.1101 (G) Reviewed by Maya Barron MD on 12/04; All test results are final unless otherwise noted. Reported Physicians [facility] Ordered by Maya Barron MD on 12/01/2020 Collected: 12/01/2020 Reported: 12/01/2020 18:19 Reported Physicians See Note None Note: Reported Physicians:Ordering: Tramaine KaurothyAttending: Tramaine PardoothyCopyifan To: Maya Barron Reviewed by Maya Barron MD on 12/04; All test results are final unless otherwise noted. CBC W AUTO DIFF [facility] Ordered by Maya Barron MD [...] Auto See Note (0-2) N (Normal) Note: [id number] Ob charger: IG% IG% 100.1375 (B) Hct VFr Bld [...] test results are final unless otherwise noted. [facility] Ordered by Maya Barron [...] unless otherwise noted. D-DIMER [facility] Ordered by Maya Barron MD [...] otherwise noted. Reported Physicians [facility] Ordered by Maya Barron MD on 12/01/2020 Collected: 12/01/2020 Reported: 12/01/2020 18:19 Reported Physicians See Note None Note: Reported Physicians:Ordering: Choco KaurAttending: Adam Pardo To: Maya Barron Reviewed by Maya Barron MD on 12/04; All test results are final unless otherwise noted. AFFIRM [facility] Ordered by Maya Barron MD on 11/29/2020 Collected: 11/29/2020 Reported: 11/30/2020 13:21 Dionna species DNA Probe NOT DETECTED (NOT DETECTED) None Note: THIS TEST WAS PERFORMED AT:[facility] [facility] [id number] MERDORIE,MDResponsible Observer: Dionna DNA Dionna species DNA Probe [id number] 913.2350 ([facility]) Gardnerella DNA Probe DETECTED (NOT DETECTED) H (High) Note: Increased levels of G. vaginalis m ay not be significantin the absence of signs and symptoms of bacterialvaginosis.Responsible Observer: Gardnerella DNA Gardnerella DNA Probe [id number] 913.2346 ([facility]) Trichomonas DNA Probe NOT DETECTED (NOT DETECTED) None Note: Responsible Observer: Trichomonas DNA Trichomonas DNA Probe [id number] 823.2345 ([facility]) Reviewed by Maya Barron MD on 12/01; All test results are final unless otherwise noted. Reported Physicians [facility] Ordered by Maya Barron MD on 11/29/2020 Collected: 11/29/2020 Reported: 11/30/2020 13:21 Reported Physicians See Note None Note: Reported Physicians:Ordering: Gideon Samuelending: Vianey Up To: Maya Barron Reviewed by Maya Barron MD on 12/01; All test results are final unless otherwise noted. Cepheid CT/NG RT-PCR [facility] Ordered by Maya Barron MD [...] may result in failure to detect the targetorganisms.73920-5G trach DNA Vag Ql ТАТЬЯНА+probeLNCHLAMNC. trachomatis NOT [id number]. trachomatis NOT GEZDCLLE67465-1M gonorrhoea rRNA Vag Ql ТАТЬЯНА+probeLNNEIGNN.gonorrhoeae NOT [id number].gonorrhoeae NOT DETECTED Reviewed by Maya Barron MD on 11/29; All test results are final unless otherwise noted. Reported Physicians [facility] Ordered by Maya Barron MD on 11/29/2020 Collected: 11/29/2020 Reported: 11/29/2020 07:03 Reported Physicians See Note None Note: Reported Physicians:Ordering: Estela SamuelAttending: Vianey Up To: Maya Barron Reviewed by Maya Barron MD on 11/29; All test results are final unless otherwise noted. ADD ON MICROSCOPIC [facility] Ordered by Maya Barron MD [...] otherwise noted. Reported Physicians [facility] Ordered by Maya Barron MD on 11/29/2020 Collected: 11/29/2020 Reported: 11/29/2020 04:51 Reported Physicians See Note None Note: Reported Physicians:Ordering: Estela SamuelAttending: Vianey Up To: Maya Barron Reviewed by Maya Barron MD on 11/29; All test results are final unless otherwise noted. UA W/ CULTURE IF ABNORMAL [facility] Ordered by Maya Barron MD on 11/29/2020 Collected: 11/29/2020 Reported: 11/29/2020 04:49 Urobilinogen Ur Ql See Note (0.2-1 EU/dl) None Note: 0.2 EU/dl0.2 EU/[id number] E U/dlResponsible Observer: UROBILINOGEN UROBILINOGEN 300.4500 (C) RBC # Ur Strip NEGATIVE (NEGATIVE) None Note: Responsible Observer: BLOOD BLOOD 300.4652 (C) Prot Ur Ql Strip See Note (NEGATIVE) None Note: [id number] EResponsible Observer: PROTEIN PROTEIN 300.3750 (C) Ketones Ur Ql Strip See Note (NEGATIVE) None Note: [id number] EResponsible Observer: KETONE KETONE 300.3900 (C) Bilirub Ur Ql Strip.auto See Note (NEGATIVE) None Note: [id number] EResponsible Observer: BILIRUBIN BILIRUBIN 300.4550 (C) Glucose Ur Strip.auto-mCnc NEGATIVE (NEGATIVE) None Note: Responsible Observer: GLUCOSE GLUC OSE 300.3850 (C) Appearance Ur See Note (CLEAR) None Note: CLEARCLEARLCLEARResponsible Observ er: APPEARANCE APPEARANCE 300.3400 (A) Color Ur See Note None Note: YELLOWYELLOWLYELLOWResponsible Obs erver: COLOR COLOR 300.3330 (A) Leukocyte esterase Ur Ql Strip See Note (NEGATIVE) None Note: [id number]@DO MICR O!!!!A Culture has been added to this specimen per established criteriaResponsible Observer: LEUKOCYTES LEUKOCYTES 300.3576 (C) Nitrite Ur Ql Strip See Note (NEGATIVE) None Note: [id number] EResponsible Observer: NITRITE NITRITE 300.3652 (B) pH [...] otherwise noted. Urine culture [facility] Ordered by Maya Barron MD on 11/29/2020 Collected: 11/29/2020 Reported: 11/30/2020 07:23 Bacteria Ur Cult See Note None Note: NGNo growth.L1NG NOTES See Note None Note: @11/29/20 0450: Urine culture adde d. RFLXG = CULT.ADD. Reviewed by Maya Barron MD on 12/01; All test results are final unless otherwise noted. Reported Physicians [facility] Ordered by Maya Barron MD on 11/29/2020 Collected: 11/29/2020 Reported: 11/30/2020 07:23 Reported Physicians See Note None Note: Reported Physicians:Ordering: Gideon Samuelending: Vianey Up To: Maya Barron Reviewed by Maya Barron MD on 12/01; All test results are final unless otherwise noted. TROPONIN [facility] Ordered by Maya Barron MD on 11/20/2020 Collected: 11/20/2020 Reported: 11/20/2020 20:04 Troponin I SerPl-mCnc Less Than 0.015 (0.00-0.09) N (Normal) Note: Less than 0.09 NG/ML Negative 0.10 - 0.77 NG/ML High Risk0.78 NG/ML or Greater PositiveThe WHO defined the cutoff (definition for diagnosis of [place])for this method as 0.78 ng/ml.Responsible Observer: Troponin I Troponin I 600.1101 (G) Reviewed by Maya Barron MD on 11/22; All test results are final unless otherwise noted. Reported Physicians [facility] Ordered by Maya Barron MD on 11/20/2020 Collected: 11/20/2020 Reported: 11/20/2020 20:05 Reported Physicians See Note None Note: Reported Physicians:Ordering: Les Vanegastending: Fady Raza To: Maya Barron Reviewed by Maya Barron MD on 11/22; All test results are final unless otherwise noted. Cepheid SARS/FLU/RSV RT-PCR [facility] Ordered by Maya Barron MD [...] by FDA under an EUA for use bynor[facility] hospitalhor[facility]. [facility] [id number]-dpz CoV RNA Resp Ql АТТЬЯНА+umtinWCBRUMJFXBP-JWF-7 NOT [id number]-YUV-4 NOT IOVBXLXY53609-8MPRMR RNA Resp Ql ТАТЬЯНА+probeLNNFLUAInfluenza A Not Det [id number] A Not Ygjprzog15971-1RFNUQ RNA Resp Ql ТАТЬЯНА+probeLNNINBInfluenza B Not [id number] B Not Jhaayzms07999- 2RSV RNA Resp Ql ТАТЬЯНА+probeLNNRSVRSV Not [id number] Not Detected Reviewed by Maya Barron MD on 11/20; All test results are final unless otherwise noted. Reported Physicians [facility] Ordered by Maya Barron MD on 11/18/2020 Collected: 11/18/2020 Reported: 11/18/2020 23:58 Reported Physicians See Note None Note: Reported Physicians:Ordering: Aj Snowending: Jos Castellanos To: Maya Barron Reviewed by Maya Barron MD on 11/20; All test results are final unless otherwise noted. URINE DRUG SCREEN -([facility]) [facility] Ordered by Maya Barron MD on 11/17/2020 Collected: 11/17/2020 Reported: 11/17/2020 14:19 PCP Ur Ql Scn>25 ng/mL See Note (Cutoff 25) None Note: [id number] E@Reenter manual test result: NEGATIVE@by Claudia Tello at 11/17/20 1414.Responsible Observer: PCP Urine Phencyclidine (PCP) Scrn 400.5120 (A) THC Ur Ql Scn>50 ng/mL See Note (Cutoff 50) None Note: [id number] EResponsible Observer: Marijuana (THC) Ur Marijuana (THC) Screen 400.5110 (A) Benzodiaz Ur Ql Scn See Note (Cutoff 150) None Note: [id number] E@Reenter manual test result: NEGATIVE@by Claudia Tello at 11/17/20 1418.Responsible Observer: Benzodiazepines Urine Benzodiazepines Screen 400.5170 (A) Opiates Ur Ql Scn See Note (Cutoff 100) None Note: [id number] E@Reenter manual test result: NEGATIVE@by Claudia Tello at 11/17/20 1418.Responsible Observer: Opiates Urine Opiates Screen 400.5150 (A) Tricyclics Ur Ql Scn See Note (Cutoff 300) None Note: [id number] E@Reenter manual test result: NEGATIVE@by Claudia Tello at 11/17/20 1418.Responsible Observer: TCA Ur Tricyclic Antidepressants 400.5180 (A) Cocaine Ur Ql Scn See Note (Cutoff 150) None Note: [id number] E@Reenter manual test result: NEGATIVE@by Claudia Tello at 11/17/20 1417.Responsible Observer: Cocaine Urine Cocaine Screen 400.5130 (A) Propoxyph+Nor Ur Ql Scn See Note (Cutoff 300) None Note: [id number] E@Reenter manual test result: NEGATIVE@by Claudia Tello at 11/17/20 1418.Responsible Observer: Propoxyphene Urine Propoxyphene Screen 400.5220 (A) Methadone Ur Ql Scn See Note (Cutoff 200) None Note: [id number] E@Reenter manual test result: NEGATIVE@by Claudia Tello at 11/17/20 1418.Responsible Observer: Methadone Urine Methadone Screen 400.5190 (A) Methamphet Ur Ql Scn See Note (Cutoff 500) None Note: [id number] E@Reenter manual test result: NEGATIVE@by Claudia Tello at 11/17/20 1417.Responsible Observer: Methamphetamine Urine Methamphetamines Screen 400.5140 (A) oxyCODONE Ur Ql Scn See Note (Cutoff 100) None Note: [id number] E@Reenter manual test result: NEGATIVE@by Claudia Tello at 11/17/20 1418.Responsible Observer: Oxycodone Urine Oxycodone Screen 400.5210 (A) Buprenorphine Ur Ql See Note (Cutoff 10) None Note: [id number] E@Reenter manual test result: NEGATIVE@by Claudia Tello at 11/17/20 1419.Responsible Observer: Buprenorphine Urine Buprenorphine Screen 400.5230 (A) Amphetamines Ur Ql Scn>500 ng/mL See Note (Cutoff 500) None Note: [id number] E@Reenter manual test result: NEGATIVE@by Claudia Tello at 11/17/20 1418.Responsible Observer: Amphetamines Urine Amphetamines Screen 400.5160 (A) Barbiturates Ur Ql Scn>200 ng/mL See Note (Cutoff 200) None Note: [id number] E@Reenter manual test result: NEGATIVE@by Claudia Tello at 11/17/20 1418.Responsible Observer: Barbiturates Urine Barbiturates 400.5200 (A) Reviewed by Maya Barron MD on 11/20; All test results are final unless otherwise noted. FREE T4 (LAB) [facility] Ordered by Maya Barron MD on 11/17/2020 Collected: 11/17/2020 Reported: 11/17/2020 14:34 T4 Free SerPl-mCnc 0.78 NanoGramsPerDeciLiter_[Mass_Concentration_Units] (0.89-1.76) L (Low) Note: Responsible Observer: FREE T4 Free Thyroxine 600.7005 (D) Reviewed by Maya Barron MD on 11/20; All test results are final unless otherwise noted. Reported Physicians [facility] Ordered by Maya Barron MD on 11/17/2020 Collected: 11/17/2020 Reported: 11/17/2020 14:34 Reported Physicians See Note None Note: Reported Physicians:Ordering: Maya AlvarengaAttending: Maya Barron Reviewed by Maya Barron MD on 11/20; All test results are final unless otherwise noted. CBC W AUTO DIFF [facility] Ordered by Maya Barron MD [...] Auto See Note (0-2) N (Normal) Note: [id number] Ob charger: IG% IG% 100.1375 (B) Hct VFr Bld [...] results are final unless otherwise noted. 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 [...] test results are final unless otherwise noted. [facility] Ordered by Maya Barron [...] noted. Vitamin D 25-OH [facility] Ordered by Maya Barron MD [...] VIT D, (D2,D3), LC/MS/MS is recommended: ordercode 08082 (patients >2yrs).See Note 1Note 1For additional information, please refer tohttp://education.Pictorama/faq/BMS463(This link is being provided for informational/educational purposes only.)THIS TEST WAS PERFORMED AT:[facility] [address]CLAUDY ONEILLesponsible Observer: Vitamin D 25-OH Vitamin D 25-Hydroxy [id number] 042.4790 ([facility] Reviewed by Maya Barron MD on 11/20; All test results are final unless otherwise noted. Reported Physicians [facility] Ordered by Maya Barron MD on 11/17/2020 Collected: 11/17/2020 Reported: 11/18/2020 08:17 Reported Physicians See Note None Note: Reported Physicians:Ordering: Maya AlvarengaAttending: Maya Barron Reviewed by Maya Barron MD on 11/20; All test results are final unless otherwise noted. IRON [facility] Ordered by Maya Barron MD [...] otherwise noted. Reported Physicians [facility] Ordered by Maya Barron MD on 11/17/2020 Collected: 11/17/2020 Reported: 11/17/2020 14:34 Reported Physicians See Note None Note: Reported Physicians:Ordering: Maya AlvarengaAttending: Maya Barron Reviewed by Maya Barron MD on 11/20; All test results are final unless otherwise noted. TSH [facility] Ordered by Maya Barron MD on 11/17/2020 Collected: 11/17/2020 Reported: 11/17/2020 14:34 TSH SerPl DL<=0.005 mIU/L-aCnc 1.38 MicroInternationalUnitsPerMilliLiter_[Arbitrary_Con (0.35-5. 50) N (Normal) Note: Responsible Observer: TSH TSH 600 .7055 (D) Reviewed by Maya Barron MD on 11/20; All test results are final unless otherwise noted. Reported Physicians [facility] Ordered by Maya Barron MD on 11/17/2020 Collected: 11/17/2020 Reported: 11/17/2020 14:34 Reported Physicians See Note None Note: Reported Physicians:Ordering: Maya AlvarengaAttending: Maya Barron Reviewed by Maya Barron MD on 11/20; All test results are final unless otherwise noted. CBC W AUTO DIFF [facility] Ordered by Maya Barron MD [...] Auto See Note (0-2) N (Normal) Note: [id number] Ob charger: IG% IG% 100.1375 (B) Hct VFr Bld [...] test results are final unless otherwise noted. [facility] Ordered by Maya Barron [...] unless otherwise noted. D-DIMER [facility] Ordered by Maya Barron MD [...] otherwise noted. Reported Physicians [facility] Ordered by Maya Barron MD on 10/23/2020 Collected: 10/23/2020 Reported: 10/23/2020 01:22 Reported Physicians See Note None Note: Reported Physicians:Ordering: Cliff Napolesending: Charles Silva To: Maya Barron Reviewed by Maya Barron MD on 10/23; All test results are final unless otherwise noted. TROPONIN [facility] Ordered by Maya Barron MD on 10/23/2020 Collected: 10/23/2020 Reported: 10/23/2020 01:03 Troponin I SerPl-mCnc Less Than 0.015 (0.00-0.09) N (Normal) Note: Less than 0.09 NG/ML Negative 0.10 - 0.77 NG/ML High Risk0.78 NG/ML or Greater PositiveThe WHO defined the cutoff (definition for diagnosis of [place])for this method as 0.78 ng/ml.Responsible Observer: Troponin I Troponin I 600.1101 (G) Reviewed by Maya Barron MD on 10/23; All test results are final unless otherwise noted. Reported Physicians [facility] Ordered by Maya Barron MD on 10/23/2020 Collected: 10/23/2020 Reported: 10/23/2020 01:03 Reported Physicians See Note None Note: Reported Physicians:Ordering: Brook yeung, PatAttending: Yoli SilvaCopy To: Maya Barron Reviewed by Maya Barron MD on 10/23; All test results are final unless otherwise noted. BHCG Quantitative [facility] Ordered by Maya Barron MD on 10/23/2020 Collected: 10/23/2020 Reported: 10/23/2020 01:21 B-HCG [facility] [id number] MilliInternationalUnitsPerMilliLiter_[Arbitrary_Con (0-10) H (High) Note: @Instrument will [...] otherwise noted. Reported Physicians [facility] Ordered by Maya Barron MD on 10/23/2020 Collected: 10/23/2020 Reported: 10/23/2020 01:21 Reported Physicians See Note None Note: Reported Physicians:Ordering: Brook yeung, YoliAttending: Charles Silva To: Maya Barron Reviewed by Maya Barron MD on 10/23; All test results are final unless otherwise noted. FREE T4 (LAB) [facility] Ordered by Maya Barron MD on 10/21/2020 Collected: 10/21/2020 Reported: 10/21/2020 15:17 T4 Free SerPl-mCnc 0.97 NanoGramsPerDeciLiter_[Mass_Concentration_Units] (0.89-1.76) N (Normal) Note: Responsible Observer: FREE T4 Free Thyroxine 600.7005 (D) Reviewed by Maya Barron MD on 10/23; All test results are final unless otherwise noted. Reported Physicians [facility] Ordered by Maya Barron MD on 10/21/2020 Collected: 10/21/2020 Reported: 10/21/2020 15:17 Reported Physicians See Note None Note: Reported Physicians:Ordering: Math is, TimothyAttending: Edvin TimothyCopy To: Maya Barron Reviewed by Maya Barron MD on 10/23; All test results are final unless otherwise noted. TSH [facility] Ordered by Maya Barron MD on 10/21/2020 Collected: 10/21/2020 Reported: 10/21/2020 15:17 TSH SerPl DL<=0.005 mIU/L-aCnc 1.40 MicroInternationalUnitsPerMilliLiter_[Arbitrary_Con (0.35-5. 50) N (Normal) Note: Responsible Observer: TSH TSH 600 .7055 (D) Reviewed by Maya Barron MD on 10/23; All test results are final unless otherwise noted. Reported Physicians [facility] Ordered by Maya Barron MD on 10/21/2020 Collected: 10/21/2020 Reported: 10/21/2020 15:17 Reported Physicians See Note None Note: Reported Physicians:Ordering: Math is, TimothyAttending: Edvin, TimothyCopyifan To: Maya Barron Reviewed by Maya Barron MD on 10/23; All test results are final unless otherwise noted. UA W/ CULTURE IF ABNORMAL [facility] Ordered by Maya Barron MD on 10/19/2020 Collected: 10/19/2020 Reported: 10/19/2020 16:31 Urobilinogen Ur Ql See Note (0.2-1 EU/dl) None Note: 0.2 EU/dl0.2 EU/[id number] E U/dlResponsible Observer: UROBILINOGEN UROBILINOGEN 300.4500 (C) RBC # Ur Strip NEGATIVE (NEGATIVE) None Note: Responsible Observer: BLOOD BLOOD 300.4652 (C) Prot Ur Ql Strip See Note (NEGATIVE) None Note: [id number] EResponsible Observer: PROTEIN PROTEIN 300.3750 (C) Ketones Ur Ql Strip See Note (NEGATIVE) None Note: [id number] EResponsible Observer: KETONE KETONE 300.3900 (C) Bilirub Ur Ql Strip.auto See Note (NEGATIVE) None Note: [id number] EResponsible Observer: BILIRUBIN BILIRUBIN 300.4550 (C) Glucose Ur Strip.auto-mCnc 100 mg/dl (NEGATIVE) None Note: Responsible Observer: GLUCOSE GLUC OSE 300.3850 (C) Appearance Ur See Note (CLEAR) None Note: CLEARCLEARLCLEARResponsible Observ er: APPEARANCE APPEARANCE 300.3400 (A) Color Ur See Note None Note: YELLOWYELLOWLYELLOWResponsible Obs erver: COLOR COLOR 300.3330 (A) Leukocyte esterase Ur Ql Strip See Note (NEGATIVE) None Note: [id number] EResponsible Observer: LEUKOCYTES LEUKOCYTES 300.3576 (C) Nitrite Ur Ql Strip See Note (NEGATIVE) None Note: [id number] EResponsible Observer: NITRITE NITRITE 300.3652 (B) pH [...] otherwise noted. Reported Physicians [facility] Ordered by Maya Barron MD on 10/19/2020 Collected: 10/19/2020 Reported: 10/19/2020 16:31 Reported Physicians See Note None Note: Reported Physicians:Ordering: Les Vanegastending: Fady Raza To: Maya Barron Reviewed by Maya Barron MD on 10/20; All test results are final unless otherwise noted. URINE DRUG SCREEN -([facility]) [facility] Ordered by Maya Barron MD on 10/19/2020 Collected: 10/19/2020 Reported: 10/19/2020 16:40 PCP Ur Ql Scn>25 ng/mL See Note (Cutoff 25) None Note: [id number] E@Reenter manual test result: NEGATIVE@by Jia Lentz at 10/19/20 1639.Responsible Observer: PCP Urine Phencyclidine (PCP) Scrn 400.5120 (A) THC Ur Ql Scn>50 ng/mL See Note (Cutoff 50) None Note: [id number] EResponsible Observer: Marijuana (THC) Ur Marijuana (THC) Screen 400.5110 (A) Benzodiaz Ur Ql Scn See Note (Cutoff 150) None Note: [id number] E@Reenter manual test result: NEGATIVE@by Jia Lentz at 10/19/20 1640.Responsible Observer: Benzodiazepines Urine Benzodiazepines Screen 400.5170 (A) Opiates Ur Ql Scn See Note (Cutoff 100) None Note: [id number] E@Reenter manual test result: NEGATIVE@by Jia Lentz at 10/19/20 1640.Responsible Observer: Opiates Urine Opiates Screen 400.5150 (A) Tricyclics Ur Ql Scn See Note (Cutoff 300) None Note: [id number] E@Reenter manual test result: NEGATIVE@by Jia Lentz at 10/19/20 1640.Responsible Observer: TCA Ur Tricyclic Antidepressants 400.5180 (A) Cocaine Ur Ql Scn See Note (Cutoff 150) None Note: [id number] E@Reenter manual test result: NEGATIVE@by Jia Lentz at 10/19/20 1640.Responsible Observer: Cocaine Urine Cocaine Screen 400.5130 (A) Propoxyph+Nor Ur Ql Scn See Note (Cutoff 300) None Note: [id number] E@Reenter manual test result: NEGATIVE@by Jia Lentz at 10/19/20 1640.Responsible Observer: Propoxyphene Urine Propoxyphene Screen 400.5220 (A) Methadone Ur Ql Scn See Note (Cutoff 200) None Note: [id number] E@Reenter manual test result: NEGATIVE@by Jia Lentz at 10/19/20 1640.Responsible Observer: Methadone Urine Methadone Screen 400.5190 (A) Methamphet Ur Ql Scn See Note (Cutoff 500) None Note: [id number] E@Reenter manual test result: NEGATIVE@by Jia Lentz at 10/19/20 1640.Responsible Observer: Methamphetamine Urine Methamphetamines Screen 400.5140 (A) oxyCODONE Ur Ql Scn See Note (Cutoff 100) None Note: [id number] E@Reenter manual test result: NEGATIVE@by Jia Lentz at 10/19/20 1640.Responsible Observer: Oxycodone Urine Oxycodone Screen 400.5210 (A) Buprenorphine Ur Ql See Note (Cutoff 10) None Note: [id number] E@Reenter manual test result: NEGATIVE@by Jia Lentz at 10/19/20 1640.Responsible Observer: Buprenorphine Urine Buprenorphine Screen 400.5230 (A) Amphetamines Ur Ql Scn>500 ng/mL See Note (Cutoff 500) None Note: [id number] E@Reenter manual test result: NEGATIVE@by Jia Lentz at 10/19/20 1640.Responsible Observer: Amphetamines Urine Amphetamines Screen 400.5160 (A) Barbiturates Ur Ql Scn>200 ng/mL See Note (Cutoff 200) None Note: [id number] E@Reenter manual test result: NEGATIVE@by Jia Lentz at 10/19/20 1640.Responsible Observer: Barbiturates Urine Barbiturates 400.5200 (A) Reviewed by Maya Barron MD on 10/20; All test results are final unless otherwise noted. Reported Physicians [facility] Ordered by Maya Barron MD on 10/19/2020 Collected: 10/19/2020 Reported: 10/19/2020 16:40 Reported Physicians See Note None Note: Reported Physicians:Ordering: Les Vanegas: Fady Raza To: Maya Barron Reviewed by Maya Barron MD on 10/20; All test results are final unless otherwise noted. TSH w/ reflex to Free T4 [facility] Ordered by Maya Barron MD on 10/19/2020 Collected: 10/19/2020 Reported: 10/19/2020 16:08 TSH SerPl DL<=0.005 mIU/L-aCnc 1.66 MicroInternationalUnitsPerMilliLiter_[Arbitrary_Con (0.35-5. 50) N (Normal) Note: Responsible Observer: TSH TSH 600 .7060 (D) Reviewed by Maya Barron MD on 10/20; All test results are final unless otherwise noted. Reported Physicians [facility] Ordered by Maya Barron MD on 10/19/2020 Collected: 10/19/2020 Reported: 10/19/2020 16:08 Reported Physicians See Note None Note: Reported Physicians:Ordering: Les Vanegas: Fady Raza To: Maya Barron Reviewed by Maya Barron MD on 10/20; All test results are final unless otherwise noted. TROPONIN [facility] Ordered by Maya Barron MD on 10/19/2020 Collected: 10/19/2020 Reported: 10/19/2020 16:10 Troponin I SerPl-mCnc Less Than 0.015 (0.00-0.09) N (Normal) Note: Less than 0.09 NG/ML Negative 0.10 - 0.77 NG/ML High Risk0.78 NG/ML or Greater PositiveThe WHO defined the cutoff (definition for diagnosis of [place])for this method as 0.78 ng/ml.Responsible Observer: Troponin I Troponin I 600.1101 (G) Reviewed by Maya Barron MD on 10/20; All test results are final unless otherwise noted. Reported Physicians [facility] Ordered by Maya Braron MD on 10/19/2020 Collected: 10/19/2020 Reported: 10/19/2020 16:10 Reported Physicians See Note None Note: Reported Physicians:Ordering: Les Vanegas: Fady Raza To: Maya Barron Reviewed by Maya Barron MD on 10/20; All test results are final unless otherwise noted. CRP, C-REACTIVE PROTEIN [facility] Ordered by Maya Barron MD on 10/19/2020 Collected: 10/19/2020 Reported: 10/19/2020 16:08 CRP SerPl-mCnc 7.5 MilliGramsPerLiter_[Mass_Concentration_Units] (0.0-5.0) H (High) Note: Responsible Observer: CRP C-Reacti ve Protein 401.4355 (H) Reviewed by Maya Barron MD on 10/20; All test results are final unless otherwise noted. SED RATE [facility] Ordered by Maya Barron MD on 10/19/2020 Collected: 10/19/2020 Reported: 10/19/2020 16:32 ESR Bld Qn Westrgrn 22 (0-20) H (High) Note: @[facility] manual test result: 22@by Jia Lentz at 10/19/20 1632.Responsible Observer: SED RATE SED RATE 100.6400 (B) Reviewed by Maya Barron MD on 10/20; All test results are final unless otherwise noted. Reported Physicians [facility] Ordered by Maya Barron MD on 10/19/2020 Collected: 10/19/2020 Reported: 10/19/2020 16:33 Reported Physicians See Note None Note: Reported Physicians:Ordering: Les Vanegas: Fady Raza To: Maya Barron Reviewed by Maya Barron MD on 10/20; All test results are final unless otherwise noted. CMP [facility] Ordered by Maya Barron MD [...] CBC W AUTO DIFF [facility] Ordered by Maya Barron MD [...] Auto See Note (0-2) N (Normal) Note: [id number] Ob charger: IG% IG% 100.1375 (B) Hct VFr Bld [...] otherwise noted. Reported Physicians [facility] Ordered by Maya Barron MD on 10/19/2020 Collected: 10/19/2020 Reported: 10/19/2020 16:33 Reported Physicians See Note None Note: Reported Physicians:Ordering: Les Vanegasding: Fady Raza To: Maya Barron Reviewed by Maya Barron MD on 10/20; All test results are final unless otherwise noted. CBC W AUTO DIFF [facility] Ordered by Maya Barron MD [...] Auto See Note (0-2) N (Normal) Note: [id number] Ob charger: IG% IG% 100.1375 (B) Hct VFr Bld [...] unless otherwise noted. MAGNESIUM [facility] Ordered by Maya Barron MD on 10/08/2020 Collected: 10/08/2020 Reported: 10/08/2020 03:17 Magnesium SerPl-mCnc 1.8 MilliGramsPerDeciLiter_[Mass_Concentration_Units] (1.3-2.7) N (Normal) Note: Responsible Observer: Magnesium Ma gnesium 400.3300 (G) Reviewed by Maya Barron MD on 10/09; All test results are final unless otherwise noted. D-DIMER [facility] Ordered by Maya Barron MD [...] otherwise noted. Reported Physicians [facility] Ordered by Maya Barron MD on 10/08/2020 Collected: 10/08/2020 Reported: 10/08/2020 03:27 Reported Physicians See Note None Note: Reported Physicians:Ordering: Sana Recinosending: Sammie Ann To: Maya Barron Reviewed by Maya Barron MD on 10/09; All test results are final unless otherwise noted. PT/PTT [facility] Ordered by Maya Barron MD [...] otherwise noted. Reported Physicians [facility] Ordered by Maya Barron MD on 10/08/2020 Collected: 10/08/2020 Reported: 10/08/2020 03:22 Reported Physicians See Note None Note: Reported Physicians:Ordering: Sana Recinosending: Norman Annopy To: Maya Barron Reviewed by Maya Barron MD on 10/09; All test results are final unless otherwise noted. [facility] Ordered by Maya Barron MD [...] otherwise noted. Reported Physicians [facility] Ordered by Maya Barron MD on 10/08/2020 Collected: 10/08/2020 Reported: 10/08/2020 03:21 Reported Physicians See Note None Note: Reported Physicians:Ordering: Sana Recinosending: Sammie Ann To: Maya Barron Reviewed by Maya Barron MD on 10/09; All test results are final unless otherwise noted. TSH w/ reflex to Free T4 [facility] Ordered by Maya Barron MD on 10/04/2020 Collected: 10/04/2020 Reported: 10/04/2020 17:42 TSH SerPl DL<=0.005 mIU/L-aCnc 1.92 MicroInternationalUnitsPerMilliLiter_[Arbitrary_Con (0.35-5. 50) N (Normal) Note: Responsible Observer: TSH TSH 600 .7060 (D) Reviewed by Maya Barron MD on 10/09; All test results are final unless otherwise noted. Reported Physicians [facility] Ordered by Maya Barron MD on 10/04/2020 Collected: 10/04/2020 Reported: 10/04/2020 17:42 Reported Physicians See Note None Note: Reported Physicians:Ordering: Les Vanegastending: Fady Raza To: Maya Barron Reviewed by Maya Barron MD on 10/09; All test results are final unless otherwise noted. CBC W AUTO DIFF [facility] Ordered by Maya Barron MD [...] Auto See Note (0-2) N (Normal) Note: [id number] Ob charger: IG% IG% 100.1375 (B) Hct VFr Bld [...] test results are final unless otherwise noted. [facility] Ordered by Maya Barron [...] otherwise noted. Reported Physicians [facility] Ordered by Maya Barron MD on 10/04/2020 Collected: 10/04/2020 Reported: 10/04/2020 17:42 Reported Physicians See Note None Note: Reported Physicians:Ordering: Les Vanegas: Fady Raza To: Maya Barron Reviewed by Maya Barron MD on 10/09; All test results are final unless otherwise noted. TROPONIN [facility] Ordered by Maya Barron MD on 10/04/2020 Collected: 10/04/2020 Reported: 10/04/2020 17:35 Troponin I SerPl-mCnc Less Than 0.015 (0.00-0.09) N (Normal) Note: Less than 0.09 NG/ML Negative 0.10 - 0.77 NG/ML High Risk0.78 NG/ML or Greater PositiveThe WHO defined the cutoff (definition for diagnosis of [place])for this method as 0.78 ng/ml.Responsible Observer: Troponin I Troponin I 600.1101 (G) Reviewed by Maya Barron MD on 10/09; All test results are final unless otherwise noted. Reported Physicians [facility] Ordered by Maya Barron MD on 10/04/2020 Collected: 10/04/2020 Reported: 10/04/2020 17:35 Reported Physicians See Note None Note: Reported Physicians:Ordering: Les Vanegas: Fady Raza To: Maya Barron Reviewed by Maya Barron MD on 10/09; All test results are final unless otherwise noted. SED RATE [facility] Ordered by Maya Barron MD on 10/04/2020 Collected: 10/04/2020 Reported: 10/04/2020 18:05 ESR Bld Qn Westrgrn 16 (0-20) N (Normal) Note: @Reenter manual test result: 16@by Jia Lentz at 10/04/20 1805.Responsible Observer: SED RATE SED RATE 100.6400 (B) Reviewed by Maya Barron MD on 10/09; All test results are final unless otherwise noted. Reported Physicians [facility] Ordered by Maya Barron MD on 10/04/2020 Collected: 10/04/2020 Reported: 10/04/2020 18:06 Reported Physicians See Note None Note: Reported Physicians:Ordering: Les Vanegas AAttending: Fady Raza To: Maya Barron Reviewed by Maya Barron MD on 10/09; All test results are final unless otherwise noted. CBC W AUTO DIFF [facility] Ordered by Maya Barron MD [...] Auto See Note (0-2) N (Normal) Note: [id number] Ob charger: IG% IG% 100.1375 (B) Hct VFr Bld [...] test results are final unless otherwise noted. [facility] Ordered by Maya Barron [...] otherwise noted. Reported Physicians [facility] Ordered by Maya Barron MD on 10/03/2020 Collected: 10/03/2020 Reported: 10/03/2020 20:03 Reported Physicians See Note None Note: Reported Physicians:Ordering: Yoli NapolesAttending: Charles Silva To: Maya Barron Reviewed by Maya Barron MD on 10/04; All test results are final unless otherwise noted. BHCG Quantitative [facility] Ordered by Maya Barron MD on 10/03/2020 Collected: 10/03/2020 Reported: 10/03/2020 20:23 B[facility] [address] MilliInternationalUnitsPerMilliLiter_[Arbitrary_Con (0-10) H (High) Note: @Instrument will [...] otherwise noted. Reported Physicians [facility] Ordered by Maya Barron MD on 10/03/2020 Collected: 10/03/2020 Reported: 10/03/2020 20:23 Reported Physicians See Note None Note: Reported Physicians:Ordering: Brook yeung, YloiAttending: Charles Silva To: Maya Barron Reviewed by Maya Barron MD on 10/04; All test results are final unless otherwise noted. TROPONIN [facility] Ordered by Maya Barron MD on 10/03/2020 Collected: 10/03/2020 Reported: 10/03/2020 20:07 Troponin I SerPl-mCnc Less Than 0.015 (0.00-0.09) N (Normal) Note: Less than 0.09 NG/ML Negative 0.10 - 0.77 NG/ML High Risk0.78 NG/ML or Greater PositiveThe WHO defined the cutoff (definition for diagnosis of [place])for this method as 0.78 ng/ml.Responsible Observer: Troponin I Troponin I 600.1101 (G) Reviewed by Maya Barron MD on 10/04; All test results are final unless otherwise noted. Reported Physicians [facility] Ordered by Maya Barron MD on 10/03/2020 Collected: 10/03/2020 Reported: 10/03/2020 20:07 Reported Physicians See Note None Note: Reported Physicians:Ordering: oYli NapolesAttending: Charles Silva To: Maya Barron Reviewed by Maya Barron MD on 10/04; All test results are final unless otherwise noted. MANUAL DIFF [facility] Ordered by Maya Barron MD [...] otherwise noted. Reported Physicians [facility] Ordered by Maya Barron MD on 10/03/2020 Collected: 10/03/2020 Reported: 10/03/2020 19:56 Reported Physicians See Note None Note: Reported Physicians:Ordering: Yoli NapolesAttending: Charles Silva To: Maya Barron Reviewed by Maya Barron MD on 10/04; All test results are final unless otherwise noted. FREE T4 (LAB) [facility] Ordered by Maya Barron MD on 10/03/2020 Collected: 10/03/2020 Reported: 10/03/2020 20:08 T4 Free SerPl-mCnc 0.97 NanoGramsPerDeciLiter_[Mass_Concentration_Units] (0.89-1.76) N (Normal) Note: Responsible Observer: FREE T4 Free Thyroxine 600.7005 (D) Reviewed by Maya Barron MD on 10/04; All test results are final unless otherwise noted. Reported Physicians [facility] Ordered by Maya Barron MD on 10/03/2020 Collected: 10/03/2020 Reported: 10/03/2020 20:08 Reported Physicians See Note None Note: Reported Physicians:Ordering: Cliff Napolesending: Charles Silva To: Maya Barron Reviewed by Maya Barron MD on 10/04; All test results are final unless otherwise noted. ADD ON MICROSCOPIC [facility] Ordered by Maya Barron MD on 10/03/2020 Collected: 10/03/2020 Reported: 10/03/2020 19:52 ADD ON MICROSCOPIC See Note (0-5) None Note: NOTES OTHER/NOT INTERPRETED Bacteria UrnS Ql Micro SMALL AMOUNT Bacteria UrnS Ql Micro SMALL AMOUNT Bacteria UrnS Ql Micro L Bacteria UrnS Ql Micro Bacteria UrnS Ql Micro Bacteria UrnS Ql Micro Bacteria UrnS Ql Micro [id number] Bacteria UrnS Ql Micro Bacteria UrnS Ql [...] otherwise noted. Reported Physicians [facility] Ordered by Maya Barron MD on 10/03/2020 Collected: 10/03/2020 Reported: 10/03/2020 19:52 Reported Physicians See Note None Note: Reported Physicians:Ordering: Yoli NapolesAttending: Charles Silva To: Maya Barron Reviewed by Maya Barron MD on 10/04; All test results are final unless otherwise noted. UA W/ CULTURE IF ABNORMAL [facility] Ordered by Maya Barron MD on 10/03/2020 Collected: 10/03/2020 Reported: 10/03/2020 19:52 Urobilinogen Ur Ql See Note (0.2-1 EU/dl) None Note: 0.2 EU/dl0.2 EU/[id number] E U/dlResponsible Observer: UROBILINOGEN UROBILINOGEN 300.4500 (C) RBC # Ur Strip NEGATIVE (NEGATIVE) None Note: Responsible Observer: BLOOD BLOOD 300.4652 (C) Prot Ur Ql Strip See Note (NEGATIVE) None Note: [id number] EResponsible Observer: PROTEIN PROTEIN 300.3750 (C) Ketones Ur Ql Strip See Note (NEGATIVE) None Note: [id number] EResponsible Observer: KETONE KETONE 300.3900 (C) Bilirub Ur Ql Strip.auto See Note (NEGATIVE) None Note: [id number] EResponsible Observer: BILIRUBIN BILIRUBIN 300.4550 (C) Glucose Ur Strip.auto-mCnc NEGATIVE (NEGATIVE) None Note: Responsible Observer: GLUCOSE GLUC OSE 300.3850 (C) Appearance Ur See Note (CLEAR) None Note: CLEARCLEARLCLEARResponsible Observ er: APPEARANCE APPEARANCE 300.3400 (A) Color Ur See Note None Note: YELLOWYELLOWLYELLOWResponsible Obs erver: COLOR COLOR 300.3330 (A) Leukocyte esterase Ur Ql Strip See Note (NEGATIVE) None Note: [id number]@DO MICR O!!!!A Culture has been added to this specimen per established criteriaResponsible Observer: LEUKOCYTES LEUKOCYTES 300.3576 (C) Nitrite Ur Ql Strip See Note (NEGATIVE) None Note: [id number] EResponsible Observer: NITRITE NITRITE 300.3652 (B) pH [...] otherwise noted. Urine culture [facility] Ordered by Maya Barron MD on 10/03/2020 Collected: 10/03/2020 Reported: 10/04/2020 13:10 Bacteria Ur Cult See Note None Note: NGNo growth.L1NG NOTES See Note None Note: @10/03/201951: Urine culture adde d. RFLXG = CULT.ADD. Reviewed by Maya Barron MD on 10/04; All test results are final unless otherwise noted. Reported Physicians [facility] Ordered by Maya Barron MD on 10/03/2020 Collected: 10/03/2020 Reported: 10/04/2020 13:10 Reported Physicians See Note None Note: Reported Physicians:Ordering: Yoli NapolesAttending: Charles Silva To: Maya Barron Reviewed by Maya Barron MD on 10/04; All test results are final unless otherwise noted. BHCG, QUANTITATIVE [facility] Ordered by Maya Barron MD on 09/18/2020 Collected: 09/18/2020 Reported: 09/18/2020 20:21 B-HCG SerPl-aCnc [id number] MilliInternationalUnitsPerMilliLiter_[Arbitrary_Con (0-10) H (High) Note: APPROXIMATE GESTATION [...] otherwise noted. Reported Physicians [facility] Ordered by Maya Barron MD on 09/18/2020 Collected: 09/18/2020 Reported: 09/18/2020 20:22 Reported Physicians See Note None Note: Reported Physicians:Ordering: Yoli NapolesAttending: Charles Silva To: Maya Barron Reviewed by Maya Barron MD on 09/20; All test results are final unless otherwise noted. CBC W AUTO DIFF [facility] Ordered by Maya Barron MD [...] Auto See Note (0-2) N (Normal) Note: [id number] Ob charger: IG% IG% 100.1375 (B) Hct VFr Bld [...] test results are final unless otherwise noted. [facility] Ordered by Maya Barron [...] otherwise noted. Reported Physicians [facility] Ordered by Maya Barron MD on 09/18/2020 Collected: 09/18/2020 Reported: 09/18/2020 20:10 Reported Physicians See Note None Note: Reported Physicians:Ordering: Yoli NapolesAttending: Charles Silva To: Maya Barron Reviewed by Maya Barron MD on 09/20; All test results are final unless otherwise noted. TROPONIN [facility] Ordered by Maya Barron MD on 09/18/2020 Collected: 09/18/2020 Reported: 09/18/2020 20:10 [facility] Less Than 0.015 (0.00-0.09) N (Normal) Note: Less than 0.09 NG/ML Negative 0.10 - 0.77 NG/ML High Risk0.78 NG/ML or Greater PositiveThe WHO defined the cutoff (definition for diagnosis of [place])for this method as 0.78 ng/ml.Responsible Observer: Troponin I Troponin I 600.1101 (G) Reviewed by Maya Barron MD on 09/20; All test results are final unless otherwise noted. Reported Physicians [facility] Ordered by Maya Barron MD on 09/18/2020 Collected: 09/18/2020 Reported: 09/18/2020 20:10 Reported Physicians See Note None Note: Reported Physicians:Ordering: Yoli NapolesAttending: Charles Silva To: Maya Barron Reviewed by Maya Barron MD on 09/20; All test results are final unless otherwise noted. Urine culture [facility] Ordered by Cat Gutierrez RPA on 09/11/2020 Collected: 09/11/2020 Reported: 09/12/2020 13:11 Bacteria Ur Cult See Note None Note: NGNo growth.L1NG NOTES See Note None Note: GEORGIANA PICKARD IN OTHER NAME IN MEDICAL RECORD Reviewed by Cat Gutierrez RPA on 09/12; All test results are final unless otherwise noted. Reported Physicians [facility] Ordered by Cat Gutierrez RPA on 09/11/2020 Collected: 09/11/2020 Reported: 09/12/2020 13:11 Reported Physicians See Note None Note: Reported Physicians:Ordering: Cat ConwayAttending: Cat Gutierrez Reviewed by Cat Gutierrez RPA on 09/12; All test results are final unless otherwise noted. UA W/ CULTURE IF ABNORMAL [facility] Ordered by Maya Barron MD on 09/10/2020 Collected: 09/10/2020 Reported: 09/10/2020 17:48 Urobilinogen Ur Ql See Note (0.2-1 EU/dl) None Note: 0.2 EU/dl0.2 EU/[id number] E U/dlResponsible Observer: UROBILINOGEN UROBILINOGEN 300.4500 (C) RBC # Ur Strip NEGATIVE (NEGATIVE) None Note: Responsible Observer: BLOOD BLOOD 300.4652 (C) Prot Ur Ql Strip See Note (NEGATIVE) None Note: [id number] EResponsible Observer: PROTEIN PROTEIN 300.3750 (C) Ketones Ur Ql Strip See Note (NEGATIVE) None Note: [id number] ble Observer: KETONE KETONE 300.3900 (C) Bilirub Ur Ql Strip.auto See Note (NEGATIVE) None Note: [id number] EResponsible Observer: BILIRUBIN BILIRUBIN 300.4550 (C) Glucose Ur Strip.auto-mCnc NEGATIVE (NEGATIVE) None Note: Responsible Observer: GLUCOSE GLUC OSE 300.3850 (C) Appearance Ur See Note (CLEAR) None Note: CLEARCLEARLCLEARResponsible Observ er: APPEARANCE APPEARANCE 300.3400 (A) Color Ur See Note None Note: YELLOWYELLOWLYELLOWResponsible Obs erver: COLOR COLOR 300.3330 (A) Leukocyte esterase Ur Ql Strip See Note (NEGATIVE) None Note: [id number] EResponsible Observer: LEUKOCYTES LEUKOCYTES 300.3576 (C) Nitrite Ur Ql Strip See Note (NEGATIVE) None Note: [id number] EResponsible Observer: NITRITE NITRITE 300.3652 (B) pH [...] otherwise noted. Reported Physicians [facility] Ordered by Maya Barron MD on 09/10/2020 Collected: 09/10/2020 Reported: 09/10/2020 17:48 Reported Physicians See Note None Note: Reported Physicians:Ordering: Les Vanegas AAttending: Fady Raza To: Maya Barron Reviewed by Maya Barron MD on 09/11; All test results are final unless otherwise noted. BHCG, QUANTITATIVE [facility] Ordered by Maya Barron MD on 09/10/2020 Collected: 09/10/2020 Reported: 09/10/2020 15:48 B-HCG SerPl-aCnc 33218 MilliInternationalUnitsPerMilliLiter_[Arbitrary_Con (0-10) H (High) Note: @Instrument will [...] otherwise noted. Reported Physicians [facility] Ordered by Maya Barron MD on 09/10/2020 Collected: 09/10/2020 Reported: 09/10/2020 15:49 Reported Physicians See Note None Note: Reported Physicians:Ordering: Les Vanegas: Fady Raza To: Maya Barron Reviewed by Maya Barron MD on 09/11; All test results are final unless otherwise noted. ABO/Rh Type [facility] Ordered by Maya Barron MD [...] otherwise noted. Reported Physicians [facility] Ordered by Maya Barron MD on 09/10/2020 Collected: 09/10/2020 Reported: 09/10/2020 15:43 Reported Physicians See Note None Note: Reported Physicians:Ordering: Les Vanegas: Fady Raza To: Maya Barron Reviewed by Maya Barron MD on 09/11; All test results are final unless otherwise noted. COVID QUEST [facility] Ordered by Maya Barron MD [...] health care providers andpatients using the following websites:https://www.[facility] .[employer]/home/Covid-19/HCP/NAAT/fact-lkroj6lpjzx://www.[facility].[employer]/home/Cov id-19/Patients/NAAT/fact-woanf6Iugc test has been authorized by the FDA under anEmergency Use Authorization (EUA) for use by authorizedlaboratories.Due to the current public health emergency, [facility] is receiving a high volume of samples [...] information about COVID-19 can be foundat the [facility] website:www.[facility].[employer]/Covid19.THIS TEST WAS PERFORMED AT:[facility] [address]JXUBIQCLAUDY ONEILLesponsible Observer: COVID-19 COVID-19 ТАТЬЯНА (SARS-CoV-2) [id number] 912.5715 ([facility]) Reviewed by Maya Barron MD on 08/25; All test results are final unless otherwise noted. Reported Physicians [facility] Ordered by Maya Barron MD on 08/23/2020 Collected: 08/23/2020 Reported: 08/25/2020 03:57 Reported Physicians See Note None Note: Reported Physicians:Ordering: Sana Recinosending: Sammie Ann To: Maya Barron Reviewed by Maya Barron MD on 08/25; All test results are final unless otherwise noted. Rapid Strep [facility] Ordered by Maya Barron MD on 08/15/2020 [address] [place], [address] Collected: 08/15/2020 Reported: 08/15/2020 11:47 tel :[phone] strep antigen normal (negative) N (Normal) Reviewed by Maya Barron MD on 08/15; All test results are final unless otherwise noted. Urinalysis w/out microscopy [facility] Ordered by Maya Barron MD on 08/15/2020 [address] [place], [address] Specimen Source: Urine Collected: 08/15/2020 Reporte d: 08/15/2020 11:03 tel:[phone] bilirubin normal (neg) N (Normal) blood normal [...] Extended hours FLU/COV2 NAAT [facility] Ordered by Maya Barron MD on 08/15/2020 Collected: 08/15/2020 Reported: 08/15/2020 15:55 Extended hours FLU/COV2 NAAT See Note None Note: TNPNo Reportable ResultLTNPNo Repo rtable TzqzvfU3CLD NOTES See Note None Note: GEORGIANA PICKARD IN OTHER NAME IN MEDICAL RECORD Reviewed by Maya Barron MD on 08/16; All test results are final unless otherwise noted. Reported Physicians [facility] Ordered by Maya Barron MD on 08/15/2020 Collected: 08/15/2020 Reported: 08/15/2020 15:55 Reported Physicians See Note None Note: Reported Physicians:Ordering: Maya AlvarengaAttending: Maya Barron Reviewed by Maya Barron MD on 08/16; All test results are final unless otherwise noted. Sweta Raquel SARS/FLU [facility] Ordered by Maya Barron MD on 08/15/2020 Collected: 08/15/2020 Reported: 08/15/2020 15:55 Sweta Raquel SARS/FLU See Note None Note: Sweta Raquel is a rapid, automated q ualitative anddifferentiation of Influenza type A,B and NYFV-BCZ-0HOYF-RT-PCR testNORMAL VALUE IS "NOT DETECTED".Limitations of the sweta raquel Influenza A/B & UXDY-WWV-6wehpq method.Modifications to manufacturers recommendation and proceduresmay alter performance of the test.Negative results do not preclude Influenza A,B or SARS- SPG1ekcnjukkba and should not be used as the [...] out diseases caused by other bacterialor viral pathogens.09824-4LDJV-wba CoV RNA Resp Ql ТАТЬЯНА+probeLNNSARS SARS-COV-2 NOT [id number]-CFF-8 NOT [id number] RNA Resp Ql ТАТЬЯНА+probeLNNFLUAInfluenza A Not [id number] A Not Onweqdwj89657-6NGEEW RNA Resp Ql ТАТЬЯНА+probeLNNINBInfluenza B Not [id number] B Not Detected NOTES See Note None Note: GEORGIANA PICKARD IN OTHER NAME IN MEDICAL RECORD Reviewed by Maya Barron MD on 08/18; All test results are final unless otherwise noted. Throat culture [facility] Ordered by Maya Barron MD on 08/15/2020 Collected: 08/15/2020 Reported: 08/17/2020 06:37 Throat culture results Normal Deisy None Reviewed by Maya Barron MD on 08/18; All test results are final unless otherwise noted. Reported Physicians [facility] Ordered by Maya Barron MD on 08/15/2020 Collected: 08/15/2020 Reported: 08/17/2020 06:37 Reported Physicians See Note None Note: Reported Physicians:Ordering: Maya AlvarengaAttending: Maya Barron Reviewed by Maya Barron MD on 08/18; All test results are final unless otherwise noted. HPVI [facility] Ordered by Cat Gutierrez RPA on 08/09/2020 Collected: 08/09/2020 Reported: 08/15/2020 06:53 Thin Prep Vag See Note None Note: See scanned reportSee scanned repo rtLSee scanned reportResponsible Observer: TP w/HPV if ASC Thinprep w/HPV if ASCUS 805.1454 ([facility]) NOTES See Note None Note: DKW07-82Nvgepklmnu Technique: BRUS H-SPATULABody Site: CERVIX Reviewed by Cat Gutierrez RPA on 08/15; All test results are final unless otherwise noted. Reported Physicians [facility] Ordered by Cat Gutierrez RPA on 08/09/2020 Collected: 08/09/2020 Reported: 08/15/2020 06:53 Reported Physicians See Note None Note: Reported Physicians:Ordering: Attchandler valentineing: Rigo Gutierrez To: Maya Barron Reviewed by Cat Gutierrez RPA on 08/15; All test results are final unless otherwise noted. GCAMP [facility] Ordered by Cat Gutierrez RPA on 08/09/2020 Collected: 08/09/2020 Reported: 08/11/2020 06:52 C trach rRNA XXX Ql ТАТЬЯНА+probe See Note (NOT DETECTED) None Note: NOT DETECTEDNOT [id number] 6NOT DETECTEDResponsible Observer: C.Trach RNA Chlamydia trachomatis DNA-ТАТЬЯНА 06806510 913.9900 ([facility]) N gonorrhoea rRNA XXX Ql ТАТЬЯНА+probe See Note (NOT DETECTED) None Note: NOT DETECTEDNOT [id number] 6NOT DETECTEDResponsible Observer: GC RNA Neisseria gonorrhoeae DNA -ТАТЬЯНА 34664164 913.9905 ([facility]) Chlamydia/GC DNA Note SEE NOTE None Note: The analytical performance charact eristics of thisassay, when used to test SurePath(TM) specimens have beendetermined by [facility]. The modifications havenot been cleared or approved by the FDA. This assay hasbeen validated pursuant to the CLIA regulations and isused for clinical purposes.For additional information, please refer tohttps://education.otelz.com/faq/JDG046(This link is being provided for information/educational purposes only.)THIS TEST WAS PERFORMED AT:[facility] [address]CLAUDY ONEILLesponsible Observer: GC/Chlam Note Chlamydia/GC DNA Note 10129251 913.9907 (A) NOTES See Note None Note: PICKARD:IN OTHER NAME IN MEDICAL RECORD Reviewed by Cat Gutierrez RPA on 08/12; All test results are final unless otherwise noted. Reported Physicians [facility] Ordered by Cat Gutierrez RPA on 08/09/2020 Collected: 08/09/2020 Reported: 08/11/2020 06:52 Reported Physicians See Note None Note: Reported Physicians:Ordering: Attchandler barton: Rigo Gutierrez To: Maya Barron Reviewed by Cat Gutierrez RPA on 08/12; All test results are final unless otherwise noted. AFFIRM [facility] Ordered by Cat Gutierrez RPA on 08/09/2020 Collected: 08/09/2020 Reported: 08/11/2020 06:52 Dionna species DNA Probe NOT DETECTED (NOT DETECTED) None Note: THIS TEST WAS PERFORMED AT:[facility] [address] [address]ABLQMUCLAUDY ONEILLesponsible Observer: Dionna DNA Dionna species DNA Probe 50035303 260.6668 ([facility]) Gardnerella DNA Probe DETECTED (NOT DETECTED) H (High) Note: Increased levels of G. vaginalis m ay not be significantin the absence of signs and symptoms of bacterialvaginosis.Responsible Observer: Gardnerella DNA Gardnerella DNA Probe 16441123 043.4747 ([facility]) Trichomonas DNA Probe NOT DETECTED (NOT DETECTED) None Note: Responsible Observer: Trichomonas DNA Trichomonas DNA Probe 14133232 983.2344 ([facility]) NOTES See Note None Note: PICKARD:IN OTHER NAME IN MEDICAL RECORD Reviewed on 08/11/2020; All test result s are final unless otherwise noted. Reported Physicians [facility] Ordered by Cat Gutierrez [facility] on 08/09/2020 Collected: 08/09/2020 Reported: 08/11/2020 06:52 Reported Physicians See Note None Note: Reported Physicians:Ordering: Atte oralia: Rigo Gutierrez To: Maya Barron Reviewed on 08/11/2020; All test result s are final unless otherwise noted. ADD ON MICROSCOPIC [facility] Ordered by Cat Gutierrez RPA on 08/09/2020 Collected: 08/09/2020 Reported: 08/09/2020 12:23 ADD ON MICROSCOPIC See Note (0-5) H (High) Note: NOTES OTHER/NOT INTERPRETED Bacteria UrnS Ql Micro SMALL AMOUNT Bacteria UrnS Ql Micro SMALL AMOUNT Bacteria UrnS Ql Micro L Bacteria UrnS Ql Micro Bacteria UrnS Ql Micro Bacteria UrnS Ql Micro Bacteria UrnS Ql Micro [id number] Bacteria UrnS Ql Micro Bacteria UrnS Ql [...] Ql Micro Mucous Threads UrnS Ql Micro 4071931950 Mucous Threads UrnS Ql Micro Mucous Threads UrnS Ql Micro MODERATE AMOUNT WBC # Ur Manual 5-8 @08/09/20 1210: UA W/ MICRO added. RFLXG = UMIC.Method of Collection:: Clean CatchResponsible Observer: WBC WBC 300.5000 (A) Reviewed by Cat Gutierrez RPA on 08/12; All test results are final unless otherwise noted. Reported Physicians [facility] Ordered by Cat Gutierrez RPA on 08/09/2020 Collected: 08/09/2020 Reported: 08/10/2020 17:47 Reported Physicians See Note None Note: Reported Physicians:Ordering: Atte nding: Rigo Gutierrez To: Maya Barron Reviewed by Cat Gutierrez [facility] on 08/12; All test results are final unless otherwise noted. URINALYSIS [facility] Ordered by Cat Gutierrez RPA on 08/09/2020 Collected: 08/09/2020 Reported: 08/09/2020 12:23 Urobilinogen Ur Ql See Note (0.2-1 EU/dl) None Note: 1 EU/dl1 EU/[id number] EU/dlRe sponsible Observer: UROBILINOGEN UROBILINOGEN 300.4500 (C) RBC # Ur Strip NEGATIVE (NEGATIVE) None Note: Responsible Observer: BLOOD BLOOD 300.4650 (C) Prot Ur Ql Strip See Note (NEGATIVE) None Note: [id number] ble Observer: PROTEIN PROTEIN 300.3750 (C) Ketones Ur Ql Strip See Note (NEGATIVE) None Note: [id number] ble Observer: KETONE KETONE 300.3900 (C) Bilirub Ur Ql Strip.auto See Note (NEGATIVE) None Note: [id number] EResponsible Observer: BILIRUBIN BILIRUBIN 300.4550 (C) Glucose Ur Strip.auto-mCnc NEGATIVE (NEGATIVE) None Note: Responsible Observer: GLUCOSE GLUC OSE 300.3850 (C) Appearance Ur See Note (CLEAR) None Note: CLEARCLEARLCLEARResponsible Observ er: APPEARANCE APPEARANCE 300.3400 (A) Color Ur See Note None Note: DARK YELLOWDARK YELLOWLDARK YELLOW Responsible Observer: COLOR COLOR 300.3300 (A) Leukocyte esterase Ur Ql Strip See Note (NEGATIVE) None Note: [id number]@DO MICR O!!!!Responsible Observer: LEUKOCYTES LEUKOCYTES 300.3575 (C) Nitrite Ur Ql Strip See Note (NEGATIVE) None Note: [id number] EResponsible Observer: NITRITE NITRITE 300.3650 (B) pH [...] otherwise noted. Urine culture [facility] Ordered by Cat Gutierrez RPA on 08/09/2020 Collected: 08/09/2020 Reported: 08/10/2020 08:33 Bacteria Ur Cult See Note None Note: NGNo growth.L1NG Reviewed by Cat Gutierrez RPA on 08/14; All test results are final unless otherwise noted. MEDMATCH [facility] Ordered by Cat Gutierrez RPA on 08/09/2020 Collected: 08/09/2020 Reported: 08/13/2020 15:56 MEDMATCH See scanned report None Note: Responsible Observer: MEDMATCH MED MATCH 910.14169 ([facility]) Reviewed by Cat Gutierrez RPA on 08/14; All test results are final unless otherwise noted. Reported Physicians [facility] Ordered by Cat Gutierrez RPA on 08/09/2020 Collected: 08/09/2020 Reported: 08/13/2020 15:56 Reported Physicians See Note None Note: Reported Physicians:Ordering: Atte memeing: Rigo Gutierrez To: Maya Barron Reviewed by Cat Gutierrez RPA on 08/14; All test results are final unless otherwise noted. Varicella-Zoster IgG Antibody [facility] Ordered by Cat Gutierrez RPA [...] Antibody Immunity Screen, ACIF.THIS TEST WAS PERFORMED AT:[facility] [address]LLIDPF ME RATI,MDResponsible Observer: VARICELLA IGG Varicella-Zoster IgG Antibody [id number] 979.6153 ([facility]) NOTES See Note None Note: Patient Street Address: [address] [place] [address] [address] [place] [facility] [facility] Zip Code: [address]Elnzlpm Reviewed by Cat Gutierrez RPA on 08/12; All test results are final unless otherwise noted. CBC [facility] Ordered by Cat Gutierrez RPA [...] Auto See Note (0-2) N (Normal) Note: 0.20.7P40377609986.2Responsible Ob charger: IG% IG% 100.1375 (B) Hct VFr Bld [...] test results are final unless otherwise noted. [facility] Ordered by Cat Gutierrez RPA on 08/09/2020 Collected: 08/09/2020 Reported: 08/09/2020 14:24 TSH SerPl DL<=0.005 mIU/L-aCnc 1.18 MicroInternationalUnitsPerMilliLiter_[Arbitrary_Con (0.35-5. 50) N (Normal) Note: Responsible Observer: TSH TSH 600 .7055 (D) Reviewed by Cat Gutierrez RPA on 08/14; All test results are final unless otherwise noted. Lead (Venous) Wh.Bld [facility] Ordered by Cat Gutierrez RPA on 08/09/2020 Collected: 08/09/2020 Reported: 08/10/2020 17:47 Lead Bld-sCnc <1 (<5) None Note: See Note 1Note 1This test was faith granados and its analytical performancecharacteristics have been determined by [facility]. It has not been cleared or approved by theA. This assay has been validated pursuant to the CLIAregulations and is used for clinical purposes.THIS TEST WAS PERFORMED AT:[facility] [address]SIOBLJ MERATI,MDResponsible Observer: Lead, WB Lead, Whole Blood [id number] 914.1490 ([facility]) NOTES See Note None Note: Patient Street Address: [address] [place] [address] [address]Patient [place]: [place] [facility] Zip Code: [address]Hksochj Reviewed by Cat Gutierrez RPA on 08/14; All test results are final unless otherwise noted. ncPN REF [facility] Ordered by Cat Gutierrez RPA on 08/09/2020 Collected: 08/09/2020 Reported: 08/13/2020 15:26 T pallidum Ab Ser Ql Aggl See Note (Nonreactive) None Note: [id number] onreactiveResponsible Observer: TP-PA Treponema pallidum Ab (TP-PA) 38622101 908.3265 ([facility]) HIV1 RNA SerPl Ql ТАТЬЯНА+probe See Note None Note: TNPNo Reportable ResultLTNPNo Repo rtable ResultLLEP.LIVENTNPResponsible Observer: HIV 1 RNA, QL T HIV 1 RNA, QL TMA [id number] 908.0254 ([facility]) HBV surface Ag SerPl Ql IA See Note (NON-REACTIVE) None Note: IGI-QZZROGGDBKE-[id number] 5NON-REACTIVEResponsible Observer: HBSAG Hepatitis B Surface Antigen 19585058 910.2004 ([facility]) RUBV IgG SerPl IA-aCnc 1.76 None Note: Index Interpretatio n ----- <0.90 Not consistent with immunity 0.90-0.99 Equivocal > or = 1.00 Consistent with immunityThe presence of rubella IgG antibody suggestsimmunization or past or current infection withrubella virus.THIS TEST WAS PERFORMED AT:[facility] [address]GRIBPN MERATI,MDResponsible Observer: Rubella IgG Ab Rubella IgG Ab [id number] 911.2840 ([facility]) HIV1 Ab SerPlBld Ql IA.rapid See Note None Note: TNPNo Reportable ResultLTNPNo Repo rtable ResultLLEP.LIVENTNPResponsible Observer: HIV 1 AB HIV 1 AB [id number] 908.0250 ([facility]) HBsAg Confirmation See Note None Note: TNPNo Reportable ResultLTNPNo Repo rtable ResultLLEP.LIVENTNPResponsible Observer: HBsAg Confirm HBsAg Confirmation [id number] 910.2006 ([facility]) HIV (1&2) Screen, 4th Gen [...] for this purpose.For additional information please refer tohttp://education.K[facility].[employer]/faq/QMB598(This link is being provided for informational/educational purposes only.)The performance of this assay has not been clinicallyvalidated in patients less than 2 years old.THIS TEST WAS PERFORMED AT:[facility] [address]AJYIZP MERATI,MDResponsible Observer: HIV ABS HIV (1&2) Screen, 4th Gen [id number] 908.0228 ([facility]) Reviewed by Cat Gutierrez RPA on 08/14; All test results are final unless otherwise noted. Reported Physicians [facility] Ordered by Cat Gutierrez RPA on 08/09/2020 Collected: 08/09/2020 Reported: 08/13/2020 15:27 Reported Physicians See Note None Note: Reported Physicians:Ordering: Atte nding: Rigo Gutierrez To: Maya Barron Reviewed by Cat Gutierrez RPA on 08/14; All test results are final unless otherwise noted. HCV RFX ТАТЬЯНА [facility] Ordered by Cat Gutierrez RPA on 08/09/2020 Collected: 08/09/2020 Reported: 08/10/2020 17:47 HCV Ab Ser Ql See Note (NON-REACTIVE) None Note: JUZ-YFKQNAFRPAJ-[id number] 7NON-REACTIVEResponsible Observer: HEP C ANTIBODY Hepatitis C Antibody [id number] 914.8305 ([facility]) HCV RNA Qualitative (ТАТЬЯНА) 0.54 (<1.00) None Note: HCV antibody was non-reactive. The re is no laboratoryevidence of HCV infection.In most cases, no further action is required. However,if recent HCV exposure is suspected, a test for HCV RNA(test code 88799) is suggested.For additional information please refer tohttp://education.otelz.com/faq/HPE04d3(This link is being provided for informational/educational purposes only.)THIS TEST WAS PERFORMED AT:[facility] [address]OSEAS MEANS,MDResponsible Observer: SIG TO C/O SIGNAL TO CUTOFF [id number] 914.8335 ([facility]) NOTES See Note None Note: Patient Street Address: [address] [place] [address] [address]Patient [place] Zip Code: [address]Pmxtndx Reviewed by Cat Gutierrez RPA on 08/12; All test results are final unless otherwise noted. Reported Physicians [facility] Ordered by Cat Gutierrez RPA on 08/09/2020 Collected: 08/09/2020 Reported: 08/10/2020 17:47 Reported Physicians See Note None Note: Reported Physicians:Ordering: Atte nding: Rigo Gutierrez To: Maya Barron Reviewed by Cat Guteirrez RPA on 08/12; All test results are final unless otherwise noted. Type and Screen [facility] Ordered by Cat Gutierrez RPA [...] otherwise noted. Reported Physicians [facility] Ordered by Cat Gutierrez RPA on 08/09/2020 Collected: 08/09/2020 Reported: 08/09/2020 12:39 Reported Physicians See Note None Note: Reported Physicians:Ordering: Cat ConwayAttending: Rigo Gutierrez To: Maya Barron Reviewed by Cat Gutierrez RPA on 08/10; All test results are final unless otherwise noted. BHCG, QUANTITATIVE [facility] Ordered by Cat Gutierrez RPA on 08/08/2020 Collected: 08/08/2020 Reported: 08/08/2020 11:53 B-HCG [facility] [facility] [address] MilliInternationalUnitsPerMilliLiter_[Arbitrary_Con (0-10) H (High) Note: @Instrument will [...] otherwise noted. Reported Physicians [facility] Ordered by Cat Gutierrez RPA on 08/08/2020 Collected: 08/08/2020 Reported: 08/08/2020 11:54 Reported Physicians See Note None Note: Reported Physicians:Ordering: Atte oralia: Rigo Gutierrez To: Maya Barron Reviewed by Cat Gutierrez RPA on 08/08; All test results are final unless otherwise noted. CBC W AUTO DIFF [facility] Ordered by Cat Gutierrez RPA [...] Auto See Note (0-2) N (Normal) Note: [id number] Ob charger: IG% IG% 100.1375 (B) Hct VFr Bld [...] test results are final unless otherwise noted. [facility] Ordered by Cat Gutierrez [...] otherwise noted. Reported Physicians [facility] Ordered by Cat Gutierrez RPA on 08/01/2020 Collected: 08/01/2020 Reported: 08/01/2020 02:26 Reported Physicians See Note None Note: Reported Physicians:Ordering: Cristino FerreiraAttending: Jos Rivas To: Maya Barron Reviewed by Cat Gutierrez RPA on 08/01; All test results are final unless otherwise noted. CG, QUANTITATIVE [facility] Ordered by Cat Gutierrez RPA on 08/01/2020 Collected: 08/01/2020 Reported: 08/01/2020 02:26 B-HCG [facility] [address] MilliInternationalUnitsPerMilliLiter_[Arbitrary_Con (0-10) H (High) Note: @Instrument will [...] otherwise noted. Reported Physicians [facility] Ordered by Cat Gutierrez RPA on 08/01/2020 Collected: 08/01/2020 Reported: 08/01/2020 02:26 Reported Physicians See Note None Note: Reported Physicians:Ordering: Cristino FerreiraAttending: Jos Rivas To: Maya Barron Reviewed by Cat Gutierrez RPA on 08/01; All test results are final unless otherwise noted. Type and Screen [facility] Ordered by Cat Gutierrez [facility] on 08/01/2020 Collected: 08/01/2020 Reported: 08/01/2020 06:03 [...] give date): N Reviewed by Cat Gutierrez [facility] on 08/01; All test results are final unless otherwise noted. Reported Physicians [facility] Ordered by Cat Gutierrez [facility] on 08/01/2020 Collected: 08/01/2020 Reported: 08/01/2020 06:03 Reported Physicians See Note None Note: Reported Physicians:Ordering: Aj Ferreiraending: Jos Rivas To: Maya Barron Reviewed by Cat Gutierrez [facility] on 08/01; All test results are final unless otherwise noted. UA W/ CULTURE IF ABNORMAL [facility] Ordered by Cat Gutierrez [facility] on 08/01/2020 Collected: 08/01/2020 Reported: 08/01/2020 01:01 Urobilinogen Ur Ql See Note (0.2-1 EU/dl) None Note: 0.2 EU/dl0.2 EU/[id number] E U/dlResponsible Observer: UROBILINOGEN UROBILINOGEN 300.4500 (C) RBC # Ur Strip SMALL (NEGATIVE) None Note: @DO MICRO!!!!Responsible Observer: BLOOD BLOOD 300.4652 (C) Prot Ur Ql Strip See Note (NEGATIVE) None Note: [id number] EResponsible Observer: PROTEIN PROTEIN 300.3750 (C) Ketones Ur Ql Strip See Note (NEGATIVE) None Note: 15 mg/dL15 mg/[id number] mg/d LResponsible Observer: KETONE KETONE 300.3900 (C) Bilirub Ur Ql Strip.auto See Note (NEGATIVE) None Note: [id number] EResponsible Observer: BILIRUBIN BILIRUBIN 300.4550 (C) Glucose Ur Strip.auto-mCnc NEGATIVE (NEGATIVE) None Note: Responsible Observer: GLUCOSE GLUC OSE 300.3850 (C) Appearance Ur See Note (CLEAR) None Note: CLEARCLEARLCLEARResponsible Observ er: APPEARANCE APPEARANCE 300.3400 (A) Color Ur See Note None Note: YELLOWYELLOWLYELLOWResponsible Obs erver: COLOR COLOR 300.3330 (A) Leukocyte esterase Ur Ql Strip See Note (NEGATIVE) None Note: [id number]@DO MICR O!!!!A Culture has been added to this specimen per established criteriaResponsible Observer: LEUKOCYTES LEUKOCYTES 300.3576 (C) Nitrite Ur Ql Strip See Note (NEGATIVE) None Note: [id number] EResponsible Observer: NITRITE NITRITE 300.3652 (B) pH [...] otherwise noted. Urine culture [facility] Ordered by Cat Gutierrez RPA on 08/01/2020 Collected: 08/01/2020 Reported: 08/02/2020 07:41 Urine culture result See Note None Note: Greater than 100,000 CFU/MLLactoba cilli no senst done NOTES See Note None Note: @08/01/20 0101: Urine culture adde d. RFLXG = CULT.ADD. Reviewed by Cat Gutierrez RPA on 08/02; All test results are final unless otherwise noted. Reported Physicians [facility] Ordered by Cat Gutierrez [facility] on 08/01/2020 Collected: 08/01/2020 Reported: 08/02/2020 07:41 Reported Physicians See Note None Note: Reported Physicians:Ordering: Aj Ferreiraending: Jos Rivas To: Maya Barron Reviewed by Cat Gutierrez [facility] on 08/02; All test results are final unless otherwise noted. ADD ON MICROSCOPIC [facility] Ordered by Cat Gutierrez [facility] on 08/01/2020 Collected: 08/01/2020 Reported: 08/01/2020 01:01 ADD ON MICROSCOPIC See Note (0-5) None Note: NOTES OTHER/NOT INTERPRETED Bacteria UrnS Ql Micro MODERATE AMOUNT Bacteria UrnS Ql Micro MODERATE AMOUNT Bacteria UrnS Ql Micro L Bacteria UrnS Ql Micro Bacteria UrnS Ql Micro Bacteria UrnS Ql Micro Bacteria UrnS Ql Micro [id number] Bacteria UrnS Ql Micro Bacteria UrnS Ql [...] RBC 300.4900 (A) Reviewed by Cat Gutierrez [facility] on 08/01; All test results are final unless otherwise noted. Reported Physicians [facility] Ordered by Cat Gutierrez [facility] on 08/01/2020 Collected: 08/01/2020 Reported: 08/01/2020 01:01 Reported Physicians See Note None Note: Reported Physicians:Ordering: Aj Ferreiraending: Jos Rivas To: Maya Barron Reviewed by Cat Gutierrez [facility] on 08/01; All test results are final unless otherwise noted. BHCG, QUANTITATIVE [facility] Ordered by Cat Gutierrez RPA on 07/31/2020 Collected: 07/31/2020 Reported: 07/31/2020 16:53 [facility] [address] MilliInternationalUnitsPerMilliLiter_[Arbitrary_Con (0-10) H (High) Note: @Instrument will [...] otherwise noted. Reported Physicians [facility] Ordered by Cat Gutierrez RPA on 07/31/2020 Collected: 07/31/2020 Reported: 07/31/2020 16:53 Reported Physicians See Note None Note: Reported Physicians:Ordering: Atte oralia: Cat Gutierrez Reviewed by Cat Gutierrez RPA on 08/01; All test results are final unless otherwise noted. UA W/ CULTURE IF ABNORMAL [facility] Ordered by Cat Gutierrez RPA on 07/27/2020 Collected: 07/27/2020 Reported: 07/27/2020 21:36 Urobilinogen Ur Ql See Note (0.2-1 EU/dl) None Note: 0.2 EU/dl0.2 EU/[id number] E U/dlResponsible Observer: UROBILINOGEN UROBILINOGEN 300.4500 (C) RBC # Ur Strip NEGATIVE (NEGATIVE) None Note: Responsible Observer: BLOOD BLOOD 300.4652 (C) Prot Ur Ql Strip See Note (NEGATIVE) None Note: [id number] EResponsible Observer: PROTEIN PROTEIN 300.3750 (C) Ketones Ur Ql Strip See Note (NEGATIVE) None Note: [id number] EResponsible Observer: KETONE KETONE 300.3900 (C) Bilirub Ur Ql Strip.auto See Note (NEGATIVE) None Note: [id number] EResponsible Observer: BILIRUBIN BILIRUBIN 300.4550 (C) Glucose Ur Strip.auto-mCnc NEGATIVE (NEGATIVE) None Note: Responsible Observer: GLUCOSE GLUC OSE 300.3850 (C) Appearance Ur See Note (CLEAR) None Note: CLEARCLEARLCLEARResponsible Observ er: APPEARANCE APPEARANCE 300.3400 (A) Color Ur See Note None Note: YELLOWYELLOWLYELLOWResponsible Obs erver: COLOR COLOR 300.3330 (A) Leukocyte esterase Ur Ql Strip See Note (NEGATIVE) None Note: [id number]@DO MICR O!!!!A Culture has been added to this specimen per established criteriaResponsible Observer: LEUKOCYTES LEUKOCYTES 300.3576 (C) Nitrite Ur Ql Strip See Note (NEGATIVE) None Note: [id number] EResponsible Observer: NITRITE NITRITE 300.3652 (B) pH [...] otherwise noted. Urine culture [facility] Ordered by Cat Gutierrez RPA on 07/27/2020 Collected: 07/27/2020 Reported: 07/29/2020 07:36 Urine culture result 50,000 CFU/ML Lactobacilli no senst done None NOTES See Note None Note: @07/27/202136: Urine culture flavia sawyer RFLXG = CULT.ADD. Reviewed by Cat Gutierrez RPA on 07/31; All test results are final unless otherwise noted. Reported Physicians [facility] Ordered by Cat Gutierrez [facility] on 07/27/2020 Collected: 07/27/2020 Reported: 07/29/2020 07:37 Reported Physicians See Note None Note: Reported Physicians:Ordering: Carmina BustamanteisalAttending: Florentino FaisalCopy To: Maya Barron Reviewed by Cat Gutierrez [facility] on 07/31; All test results are final unless otherwise noted. ADD ON MICROSCOPIC [facility] Ordered by Cat Gutierrez [facility] on 07/27/2020 Collected: 07/27/2020 Reported: 07/27/2020 21:36 ADD ON MICROSCOPIC See Note (0-5) None Note: NOTES OTHER/NOT INTERPRETED Bacteria UrnS Ql Micro SMALL AMOUNT Bacteria UrnS Ql Micro SMALL AMOUNT Bacteria UrnS Ql Micro L Bacteria UrnS Ql Micro Bacteria UrnS Ql Micro Bacteria UrnS Ql Micro Bacteria UrnS Ql Micro [id number] Bacteria UrnS Ql Micro Bacteria UrnS Ql [...] WBC 300.5005 (A) Reviewed by Cat Gutierrez [facility] on 07/28; All test results are final unless otherwise noted. Reported Physicians [facility] Ordered by Cat Gutierrez [facility] on 07/27/2020 Collected: 07/27/2020 Reported: 07/27/2020 21:37 Reported Physicians See Note None Note: Reported Physicians:Ordering: Carmina BustamanteisalAttending: Florentino FaisalCopy To: Maya Barron Reviewed by Cat Gutierrez [facility] on 07/28; All test results are final unless otherwise noted. BHCG, QUANTITATIVE [facility] Ordered by Cat Gutierrez RPA [...] otherwise noted. Reported Physicians [facility] Ordered by Cat Gutierrez RPA on 07/27/2020 Collected: 07/27/2020 Reported: 07/27/2020 22:08 Reported Physicians See Note None Note: Reported Physicians:Ordering: Daquan BustamanteAttending: Daquan GoodCopyifan To: Maya Barron Reviewed by Cat Gutierrez RPA on 07/28; All test results are final unless otherwise noted. CMP [facility] Ordered by Cat Gutierrez RPA [...] otherwise noted. Reported Physicians [facility] Ordered by Cat Gutierrez RPA on 07/27/2020 Collected: 07/27/2020 Reported: 07/27/2020 20:37 Reported Physicians See Note None Note: Reported Physicians:Ordering: Daquan BustamanteAttending: Ariella Good To: Maya Barron Reviewed by aCt Gutierrez RPA on 07/28; All test results are final unless otherwise noted. Type and Screen [facility] Ordered by Cat Gutierrez RPA [...] otherwise noted. Reported Physicians [facility] Ordered by Cat Gutierrez RPA on 07/27/2020 Collected: 07/27/2020 Reported: 07/27/2020 20:48 Reported Physicians See Note None Note: Reported Physicians:Ordering: Daquan BustamanteAttending: Ariella Good To: Maya Barron Reviewed by Cat Gutierrez RPA on 07/28; All test results are final unless otherwise noted. CBC W AUTO DIFF [facility] Ordered by Cat Gutierrez RPA [...] Auto See Note (0-2) N (Normal) Note: [id number] Ob charger: IG% IG% 100.1375 (B) Hct VFr Bld [...] otherwise noted. Reported Physicians [facility] Ordered by Cat Gutierrez RPA on 07/27/2020 Collected: 07/27/2020 Reported: 07/27/2020 20:11 Reported Physicians See Note None Note: Reported Physicians:Ordering: Daquan BustamanteAttending: Ariella Good To: Maya Barron Reviewed by Cat Gutierrez RPA on 07/28; All test results are final unless otherwise noted. BHCG, QUANTITATIVE [facility] Ordered by Maya Barron MD on 07/26/2020 Collected: 07/26/2020 Reported: 07/26/2020 16:48 B-HCG [facility] [address] MilliInternationalUnitsPerMilliLiter_[Arbitrary_Con (0-10) H (High) Note: [...] otherwise noted. Reported Physicians [facility] Ordered by Maya Barron MD on 07/26/2020 Collected: 07/26/2020 Reported: 07/26/2020 16:48 Reported Physicians See Note None Note: Reported Physicians:Ordering: Maya AlvarengaAttending: Maya Barron Reviewed by Maya Barron MD on 07/27; All test results are final unless otherwise noted. Extended hours FLU/COV2 NAAT [facility] Ordered by Bandar Cleveland PA-C on 07/25/2020 Collected: 07/25/2020 Reported: 07/25/2020 18:47 Extended hours FLU/COV2 NAAT See Note None Note: TNPNo Reportable ResultLTNPNo Repo rtable WaibvnM7GXQ Reviewed by Bandar Cleveland PA-C on ; All test results are final unless otherwise noted. Reported Physicians [facility] Ordered by Bandar Cleveland PA-C on 07/25/2020 Collected: 07/25/2020 Reported: 07/25/2020 18:47 Reported Physicians See Note None Note: Reported Physicians:Ordering: Janice Wilsonending: Kami Cleveland To: Health, Public Reviewed by Bandar Cleveland PA-C on ; All test results are final unless otherwise noted. Sweta Raquel SARS/FLU [facility] Ordered by Bandar Cleveland PA-C on 07/25/2020 Collected: 07/25/2020 Reported: 07/25/2020 18:47 Sweta Raquel SARS/FLU See Note None Note: Sweta Raquel is a rapid, automated q ualitative anddifferentiation of Influenza type A,B and IZHL-ODH-9WJIW-RT-PCR testNORMAL VALUE IS "NOT DETECTED".Limitations of the sweta raquel Influenza A/B & NEXD-AIF-6rkmuc method.Modifications to manufacturers recommendation and proceduresmay alter performance of the test.Negative results do not preclude Influenza A,B or SARS- CMJ4gqibidepqk and should not be used as the [...] out diseases caused by other bacterialor viral pathogens.[id number]-AhD-4 RNA Resp Ql ТАТЬЯНА+probeLNNOSNo O rganisms [id number] Organisms Detected Reviewed by Bandar Cleveland PA-C on 1; All test results are final unless otherwise noted. Reported Physicians [facility] Ordered by Bandar Cleveland PA-C on 07/25/2020 Collected: 07/25/2020 Reported: 07/25/2020 18:47 Reported Physicians See Note None Note: Reported Physicians:Ordering: Janice Wilsonending: Kami Cleveland To: Health, Public Reviewed by Bandar Cleveland PA-C on 1; All test results are final unless otherwise noted. CBC W AUTO DIFF [facility] Ordered by Maya Barron MD [...] Auto See Note (0-2) N (Normal) Note: [id number] Ob charger: IG% IG% 100.1375 (B) Hct VFr Bld [...] test results are final unless otherwise noted. [facility] Ordered by Maya Barron MD [...] otherwise noted. Reported Physicians [facility] Ordered by Maya Barron MD on 07/22/2020 Collected: 07/22/2020 Reported: 07/22/2020 02:00 Reported Physicians See Note None Note: Reported Physicians:Ordering: Dominic Landaverdeending: Alon Douglas To: Maya Barron Reviewed by Maya Barron MD on 07/24; All test results are final unless otherwise noted. Extended hours FLU/COV2 NAAT [facility] Ordered by Maya Barron MD on 07/22/2020 Collected: 07/22/2020 Reported: 07/22/2020 01:29 Extended hours FLU/COV2 NAAT See Note None Note: TNPNo Reportable ResultLTNPNo Repo rtable TykasrY4PZY Reviewed by Maya Barron MD on 07/24; All test results are final unless otherwise noted. Reported Physicians [facility] Ordered by Maya Barron MD on 07/22/2020 Collected: 07/22/2020 Reported: 07/22/2020 01:29 Reported Physicians See Note None Note: Reported Physicians:Ordering: Hong LandaverdeAttending: Alon Douglas To: Maya Barron Reviewed by Maya Barron MD on 07/24; All test results are final unless otherwise noted. Sweta Raquel SARS/FLU [facility] Ordered by Maya Barron MD on 07/22/2020 Collected: 07/22/2020 Reported: 07/22/2020 01:29 Sweta Raquel SARS/FLU See Note None Note: Sweta Raquel is a rapid, automated q ualitative anddifferentiation of Influenza type A,B and THYS-DJH-3IRQB-RT-PCR testNORMAL VALUE IS "NOT DETECTED".Limitations of the sweta raquel Influenza A/B & JHXB-LCS-8ebwew method.Modifications to manufacturers recommendation and proceduresmay alter performance of the test.Negative results do not preclude Influenza A,B or SARS- UFQ0mbrsigddyu and should not be used as the [...] out diseases caused by other bacterialor viral pathogens.59828-3IJAV-JgG-4 RNA Resp Ql ТАТЬЯНА+probeLNNOSNo O rganisms [id number] Organisms Detected Reviewed by Maya Barron MD on 07/24; All test results are final unless otherwise noted. Reported Physicians [facility] Ordered by Maya Barron MD on 07/22/2020 Collected: 07/22/2020 Reported: 07/22/2020 01:29 Reported Physicians See Note None Note: Reported Physicians:Ordering: Hong LandaverdeAttending: Alon Douglas To: Maya Barron Reviewed by Maya Barron MD on 07/24; All test results are final unless otherwise noted. UA W/ CULTURE IF ABNORMAL [facility] Ordered by Maya Barron MD on 07/22/2020 Collected: 07/22/2020 Reported: 07/22/2020 01:10 Urobilinogen Ur Ql See Note (0.2-1 EU/dl) None Note: 0.2 EU/dl0.2 EU/[id number] E U/dlResponsible Observer: UROBILINOGEN UROBILINOGEN 300.4500 (C) RBC # Ur Strip NEGATIVE (NEGATIVE) None Note: Responsible Observer: BLOOD BLOOD 300.4652 (C) Prot Ur Ql Strip See Note (NEGATIVE) None Note: [id number] EResponsible Observer: PROTEIN PROTEIN 300.3750 (C) Ketones Ur Ql Strip See Note (NEGATIVE) None Note: [id number] EResponsible Observer: KETONE KETONE 300.3900 (C) Bilirub Ur Ql Strip.auto See Note (NEGATIVE) None Note: [id number] EResponsible Observer: BILIRUBIN BILIRUBIN 300.4550 (C) Glucose Ur Strip.auto-mCnc NEGATIVE (NEGATIVE) None Note: Responsible Observer: GLUCOSE GLUC OSE 300.3850 (C) Appearance Ur See Note (CLEAR) None Note: CLEARCLEARLCLEARResponsible Observ er: APPEARANCE APPEARANCE 300.3400 (A) Color Ur See Note None Note: YELLOWYELLOWLYELLOWResponsible Obs erver: COLOR COLOR 300.3330 (A) Leukocyte esterase Ur Ql Strip See Note (NEGATIVE) None Note: [id number] EResponsible Observer: LEUKOCYTES LEUKOCYTES 300.3576 (C) Nitrite Ur Ql Strip See Note (NEGATIVE) None Note: [id number] EResponsible Observer: NITRITE NITRITE 300.3652 (B) pH [...] otherwise noted. Reported Physicians [facility] Ordered by Maya Barron MD on 07/22/2020 Collected: 07/22/2020 Reported: 07/22/2020 01:11 Reported Physicians See Note None Note: Reported Physicians:Ordering: Hong LandaverdeAttending: Alon Douglas To: Maya Barron Reviewed by Maya Barron MD on 07/24; All test results are final unless otherwise noted. Urine culture [facility] Ordered by Maya Barron MD on 07/19/2020 Collected: 07/19/2020 Reported: 07/21/2020 07:48 Bacteria Ur Cult See Note None Note: NGNo growth.L1NG Reviewed by Maya Barron MD on 07/21; All test results are final unless otherwise noted. Reported Physicians [facility] Ordered by Maya Barron MD on 07/19/2020 Collected: 07/19/2020 Reported: 07/21/2020 07:49 Reported Physicians See Note None Note: Reported Physicians:Ordering: Maya AlvarengaAttending: Maya Barron Reviewed by Maya Barron MD on 07/21; All test results are final unless otherwise noted. BHCG, QUANTITATIVE [facility] Ordered by Maya Barron MD [...] otherwise noted. Reported Physicians [facility] Ordered by Maya Barron MD on 07/17/2020 Collected: 07/17/2020 Reported: 07/17/2020 12:40 Reported Physicians See Note None Note: Reported Physicians:Ordering: Maya AlvarengaAttending: Maya Barron Reviewed by Maya Barron MD on 07/17; All test results are final unless otherwise noted. [employer] COVID-19 SCHOOL [facility] Ordered by Maya Barron MD [...] molecular test, if the virus mutates in [facility] region, Covid-19 may not be detected or may bedetected less predictably.ID NOW COVID-19 is intended for testing a swab directlywithout elution in viral transport media as dilution willresult in decreased detection of low positive samples thatare near the limit of detection of the test.SWAB SAMPLES ELUTED IN VTM ARE NOT APPROPRIATE FOR USE INTHIS TEST.NOSNo Organisms [id number] Organisms Detected Reviewed by Maya Barron MD on 05/31; All test results are final unless otherwise noted. Reported Physicians [facility] Ordered by Maya Barron MD on 05/31/2020 Collected: 05/31/2020 Reported: 05/31/2020 07:08 Reported Physicians See Note None Note: Reported Physicians:Ordering: Johnny Hernándezending: Suzanne Cazares To: Maya Barron Reviewed by Maya Barron MD on 05/31; All test results are final unless otherwise noted. BHCG, QUANTITATIVE [facility] Ordered by Maya Barron MD on 05/26/2020 Collected: 05/26/2020 Reported: 05/26/2020 14:49 [facility] [address] MilliInternationalUnitsPerMilliLiter_[Arbitrary_Con (0-10) H (High) Note: @Instrument will [...] otherwise noted. Reported Physicians [facility] Ordered by Maya Barron MD on 05/26/2020 Collected: 05/26/2020 Reported: 05/26/2020 14:50 Reported Physicians See Note None Note: Reported Physicians:Ordering: Maya AlvarengaAttending: Maya Barron Reviewed by Maya Barron MD on 05/26; All test results are final unless otherwise noted. URINALYSIS [facility] Ordered by Maya Barron MD on 05/23/2020 Collected: 05/23/2020 Reported: 05/23/2020 17:19 Urobilinogen Ur Ql See Note (0.2-1 EU/dl) None Note: 0.2 EU/dl0.2 EU/[id number] E U/dlResponsible Observer: UROBILINOGEN UROBILINOGEN 300.4500 (C) RBC # Ur Strip NEGATIVE (NEGATIVE) None Note: Responsible Observer: BLOOD BLOOD 300.4650 (C) Prot Ur Ql Strip See Note (NEGATIVE) None Note: [id number] EResponsible Observer: PROTEIN PROTEIN 300.3750 (C) Ketones Ur Ql Strip See Note (NEGATIVE) None Note: [id number] EResponsible Observer: KETONE KETONE 300.3900 (C) Bilirub Ur Ql Strip.auto See Note (NEGATIVE) None Note: [id number] EResponsible Observer: BILIRUBIN BILIRUBIN 300.4550 (C) Glucose Ur Strip.auto-mCnc NEGATIVE (NEGATIVE) None Note: Responsible Observer: GLUCOSE GLUC OSE 300.3850 (C) Appearance Ur See Note (CLEAR) None Note: CLEARCLEARLCLEARResponsible Observ er: APPEARANCE APPEARANCE 300.3400 (A) Color Ur See Note None Note: YELLOWYELLOWLYELLOWResponsible Obs erver: COLOR COLOR 300.3300 (A) Leukocyte esterase Ur Ql Strip See Note (NEGATIVE) None Note: [id number] EResponsible Observer: LEUKOCYTES LEUKOCYTES 300.3575 (C) Nitrite Ur Ql Strip See Note (NEGATIVE) None Note: [id number] EResponsible Observer: NITRITE NITRITE 300.3650 (B) pH [...] otherwise noted. Urine culture [facility] Ordered by Maya Barron MD on 05/23/2020 Collected: 05/23/2020 Reported: 05/24/2020 09:24 Bacteria Ur Cult See Note None Note: NGNo growth.L1NG Reviewed by Maya Barron MD on 05/29; All test results are final unless otherwise noted. MEDMATCH [facility] Ordered by Maya Barron MD on 05/23/2020 Collected: 05/23/2020 Reported: 05/26/2020 17:09 MEDMATCH 1.000 (> or = 1.003) None Note: Responsible Observer: MEDMATCH MED MATCH 966.40992 ([facility]) Reviewed by Maya Barron MD on 05/29; All test results are final unless otherwise noted. Reported Physicians [facility] Ordered by Maya Barron MD on 05/23/2020 Collected: 05/23/2020 Reported: 05/26/2020 17:09 Reported Physicians See Note None Note: Reported Physicians:Ordering: Myaa AlvarengaAttending: Maya Barron Reviewed by Maya Barron MD on 05/29; All test results are final unless otherwise noted. Varicella-Zoster IgG Antibody [facility] Ordered by Maya Barron MD [...] Antibody Immunity Screen, ACIF.THIS TEST WAS PERFORMED AT:[facility] [address] [address]BNELID ME RATI,MDResponsible Observer: VARICELLA IGG Varicella-Zoster IgG Antibody [id number] 987.3483 ([facility]) NOTES See Note None Note: Patient Street Address: [facility] [address]Patient [place]: [address] Reviewed by Maya Barron MD on 05/26; All test results are final unless otherwise noted. Reported Physicians [facility] Ordered by Maya Barron MD on 05/23/2020 Collected: 05/23/2020 Reported: 05/25/2020 17:11 Reported Physicians See Note None Note: Reported Physicians:Ordering: Maya AlvarengaAttending: Maya Barron Reviewed by Maya Barron MD on 05/26; All test results are final unless otherwise noted. CBC [facility] Ordered by Maya Barron MD [...] Auto See Note (0-2) N (Normal) Note: [id number] Ob charger: IG% IG% 100.1375 (B) Hct VFr Bld [...] unless otherwise noted. TSH [facility] Ordered by Maya Barron MD on 05/23/2020 Collected: 05/23/2020 Reported: 05/23/2020 18:38 TSH SerPl DL<=0.005 mIU/L-aCnc 1.87 MicroInternationalUnitsPerMilliLiter_[Arbitrary_Con (0.35-5. 50) N (Normal) Note: Responsible Observer: TSH TSH 600 .7055 (D) Reviewed by Maya Barron MD on 05/29; All test results are final unless otherwise noted. Lead (Venous) Wh.Bld [facility] Ordered by Maya Barron MD on 05/23/2020 Collected: 05/23/2020 Reported: 05/25/2020 17:11 Lead Bld-sCnc <1 (<5) None Note: See Note 1Note 1This test was faith granados and its analytical performancecharacteristics have been determined by [facility]. It has not been cleared or approved by theA. This assay has been validated pursuant to the CLIAregulations and is used for clinical purposes.THIS TEST WAS PERFORMED AT:[facility] [address]LXVEKFCLAUDY ONEILLesponsible Observer: Lead, WB Lead, Whole Blood [id number] 911.2190 ([facility]) NOTES See Note None Note: Patient Street Address: [facility] [address]Patient [place]: [place]: [place]: [address] Reviewed by Maya Barron MD on 05/29; All test results are final unless otherwise noted. [facility] REF [facility] Ordered by Maya Barron MD on 05/23/2020 Collected: 05/23/2020 Reported: 05/27/2020 20:54 T pallidum Ab Ser Ql Aggl See Note (Nonreactive) None Note: [id number] onreactiveResponsible Observer: TP-PA Treponema pallidum Ab (TP-PA) [id number] 908.0286 ([facility]) HIV1 RNA SerPl Ql ТАТЬЯНА+probe See Note None Note: TNPNo Reportable ResultLTNPNo Repo rtable ResultLLEP.LIVENTNPResponsible Observer: HIV 1 RNA, QL T HIV 1 RNA, QL TMA [id number] 908.0254 ([facility]) HBV surface Ag SerPl Ql IA See Note (NON-REACTIVE) None Note: [id number] 0NON-REACTIVEResponsible Observer: HBSAG Hepatitis B Surface Antigen 10030609 910.2004 ([facility]) RUBV IgG SerPl IA-aCnc 1.80 None Note: Index Interpretatio n ----- <0.90 Not consistent with Immunity 0.90-0.99 Equivocal > or = 1.00 Consistent with ImmunityThe presence of rubella IgG antibody suggestsimmunization or past or current infection withrubella virus.THIS TEST WAS PERFORMED AT:[facility] [address]NHGGAH MERATI,MDResponsible Observer: Rubella IgG Ab Rubella IgG Ab [id number] 911.2840 ([facility]) HIV1 Ab SerPlBld Ql IA.rapid See Note None Note: TNPNo Reportable ResultLTNPNo Repo rtable ResultLLEP.LIVENTNPResponsible Observer: HIV 1 AB HIV 1 AB [id number] 908.0250 ([facility]) HBsAg Confirmation See Note None Note: TNPNo Reportable ResultLTNPNo Repo rtable ResultLLEP.LIVENTNPResponsible Observer: HBsAg Confirm HBsAg Confirmation [id number] 910.2006 ([facility]) HIV (1&2) Screen, 4th Gen [...] for this purpose.For additional information please refer tohttp://education.KLab.[employer]/faq/IZM135(This link is being provided for informational/educational purposes only.)The performance of this assay has not been clinicallyvalidated in patients less than 2 years old.Responsible Observer: HIV ABS HIV (1&2) Screen, 4th Gen [id number] 908.0228 ([facility]) Reviewed by Maya Barron MD on 05/29; All test results are final unless otherwise noted. Reported Physicians [facility] Ordered by Maya Barron MD on 05/23/2020 Collected: 05/23/2020 Reported: 05/27/2020 20:54 Reported Physicians See Note None Note: Reported Physicians:Ordering: Maya AlvarengaAttending: Maya Barron Reviewed by Maya Barron MD on 05/29; All test results are final unless otherwise noted. HCV RFX ТАТЬЯНА [facility] Ordered by Maya Barron MD on 05/23/2020 Collected: 05/23/2020 Reported: 05/25/2020 17:11 HCV Ab Ser Ql See Note (NON-REACTIVE) None Note: [id number] 7NON-REACTIVEResponsible Observer: HEP C ANTIBODY Hepatitis C Antibody [id number] 914.8344 ([facility]) HCV RNA Qualitative (ТАТЬЯНА) 0.59 (<1.00) None Note: HCV antibody was non-reactive. The re is no laboratoryevidence of HCV infection.In most cases, no further action is required. However,if recent HCV exposure is suspected, a test for HCV RNA(test code 12552) is suggested.For additional information please refer tohttp://education.KLab.[employer]/faq/YFA50b3(This link is being provided for informational/educational purposes only.)THIS TEST WAS PERFORMED AT:[facility] [address]OSEAS MEANSMDResponsible Observer: SIG TO C/O SIGNAL TO CUTOFF [id number] 910.7695 ([facility]) NOTES See Note None Note: Patient Street Address: [address] City: [facility] State: [facility] Zip Code: [address] Reviewed by Maya Barron MD on 05/26; All test results are final unless otherwise noted. Reported Physicians [facility] Ordered by Maya Barron MD on 05/23/2020 Collected: 05/23/2020 Reported: 05/25/2020 17:11 Reported Physicians See Note None Note: Reported Physicians:Ordering: Maya AlvarengaAttending: Maya Barron Reviewed by Maya Barron MD on 05/26; All test results are final unless otherwise noted. Type and Screen [facility] Ordered by Maya Barron MD [...] otherwise noted. Reported Physicians [facility] Ordered by Maya Barron MD on 05/23/2020 Collected: 05/23/2020 Reported: 05/23/2020 19:32 Reported Physicians See Note None Note: Reported Physicians:Ordering: Maya AlvarengaAttending: Maya Barron Reviewed by Maya Barron MD on 05/24; All test results are final unless otherwise noted. PROGESTERONE [facility] Ordered by Maya Barron MD [...] otherwise noted. Reported Physicians [facility] Ordered by Maya Barron MD on 04/27/2020 Collected: 04/27/2020 Reported: 04/27/2020 15:58 Reported Physicians See Note None Note: Reported Physicians:Ordering: Johnny Hernándezending: Cristino CastellanosCopyifan To: Rubén Barron To: Cristino Castellanos Reviewed by Maya Barron MD on 04/30; All test results are final unless otherwise noted. BHCG, QUANTITATIVE [facility] Ordered by Maya Barron MD [...] otherwise noted. Reported Physicians [facility] Ordered by Maya Barron MD on 04/27/2020 Collected: 04/27/2020 Reported: 04/27/2020 14:40 Reported Physicians See Note None Note: Reported Physicians:Ordering: Aj Snowending: Jos Castellanos To: Suzanne Cazares To: Maya Barron Reviewed by Maya Barron MD on 04/30; All test results are final unless otherwise noted. CBC W AUTO DIFF [facility] Ordered by Maya Barron MD [...] Auto See Note (0-2) N (Normal) Note: [id number] Ob charger: IG% IG% 100.1375 (B) Hct VFr Bld [...] test results are final unless otherwise noted. [facility] Ordered by Maya Barron [...] otherwise noted. Reported Physicians [facility] Ordered by Maya Barron MD on 04/25/2020 Collected: 04/25/2020 Reported: 04/25/2020 22:11 Reported Physicians See Note None Note: Reported Physicians:Ordering: Aj Ferreiraending: Jos Rivas To: Maya Barron Reviewed by Maya Barron MD on 04/26; All test results are final unless otherwise noted. BHCG, QUANTITATIVE [facility] Ordered by Maya Barron MD [...] otherwise noted. Reported Physicians [facility] Ordered by Maya Barron MD on 04/25/2020 Collected: 04/25/2020 Reported: 04/25/2020 22:11 Reported Physicians See Note None Note: Reported Physicians:Ordering: Aj Ferreiraending: Jos Rivas To: Maya Barron Reviewed by Maya Barron MD on 04/26; All test results are final unless otherwise noted. Urine culture [facility] Ordered by Maya Barron MD on 04/25/2020 Collected: 04/25/2020 Reported: 04/27/2020 04:50 Bacteria Ur Cult See Note None Note: NGNo growth.L1NG NOTES See Note None Note: @ NICOLE DATE was changed from 04/26 to 04/25/20@ by POMCY. Reviewed by Maya Barron MD on 04/30; All test results are final unless otherwise noted. Reported Physicians [facility] Ordered by Maya Barron MD on 04/25/2020 Collected: 04/25/2020 Reported: 04/27/2020 04:51 Reported Physicians See Note None Note: Reported Physicians:Ordering: Cristino FerreiraAttending: oJs Rivas To: Maya Barron Reviewed by Maya Barron MD on 04/30; All test results are final unless otherwise noted. ADD ON MICROSCOPIC [facility] Ordered by Maya Barron MD on 04/25/2020 Collected: 04/25/2020 Reported: 04/25/2020 21:54 ADD ON MICROSCOPIC See Note (0-5) None Note: NOTES OTHER/NOT INTERPRETED Bacteria UrnS Ql Micro SMALL AMOUNT Bacteria UrnS Ql Micro SMALL AMOUNT Bacteria UrnS Ql Micro L Bacteria UrnS Ql Micro Bacteria UrnS Ql Micro Bacteria UrnS Ql Micro Bacteria UrnS Ql Micro [id number] Bacteria UrnS Ql Micro Bacteria UrnS Ql [...] otherwise noted. Reported Physicians [facility] Ordered by Maya Barron MD on 04/25/2020 Collected: 04/25/2020 Reported: 04/25/2020 21:54 Reported Physicians See Note None Note: Reported Physicians:Ordering: Cristino FerreiraAttending: Jos Rivas To: Maya Barron Reviewed by Maya Barron MD on 04/26; All test results are final unless otherwise noted. URINALYSIS [facility] Ordered by Maya Barron MD on 04/25/2020 Collected: 04/25/2020 Reported: 04/25/2020 21:54 Urobilinogen Ur Ql See Note (0.2-1 EU/dl) None Note: 0.2 EU/dl0.2 EU/[id number] E U/dlResponsible Observer: UROBILINOGEN UROBILINOGEN 300.4500 (C) RBC # Ur Strip NEGATIVE (NEGATIVE) None Note: Responsible Observer: BLOOD BLOOD 300.4650 (C) Prot Ur Ql Strip See Note (NEGATIVE) None Note: [id number] EResponsible Observer: PROTEIN PROTEIN 300.3750 (C) Ketones Ur Ql Strip See Note (NEGATIVE) None Note: [id number] EResponsible Observer: KETONE KETONE 300.3900 (C) Bilirub Ur Ql Strip.auto See Note (NEGATIVE) None Note: [id number] EResponsible Observer: BILIRUBIN BILIRUBIN 300.4550 (C) Glucose Ur Strip.auto-mCnc NEGATIVE (NEGATIVE) None Note: Responsible Observer: GLUCOSE GLUC OSE 300.3850 (C) Appearance Ur See Note (CLEAR) None Note: CLEARCLEARLCLEARResponsible Observ er: APPEARANCE APPEARANCE 300.3400 (A) Color Ur See Note None Note: YELLOWYELLOWLYELLOWResponsible Obs erver: COLOR COLOR 300.3300 (A) Leukocyte esterase Ur Ql Strip See Note (NEGATIVE) None Note: [id number]@DO MICR O!!!!Responsible Observer: LEUKOCYTES LEUKOCYTES 300.3575 (C) Nitrite Ur Ql Strip See Note (NEGATIVE) None Note: [id number] EResponsible Observer: NITRITE NITRITE 300.3650 (B) pH [...] otherwise noted. Reported Physicians [facility] Ordered by Maya Barron MD on 04/25/2020 Collected: 04/25/2020 Reported: 04/25/2020 21:54 Reported Physicians See Note None Note: Reported Physicians:Ordering: Cristino FerreiraAttending: Jos Rivas To: Maya Barron Reviewed by Maya Barron MD on 04/26; All test results are final unless otherwise noted. BHCG, QUANTITATIVE [facility] Ordered by Maya Barron MD [...] otherwise noted. Reported Physicians [facility] Ordered by Maya Barron MD on 04/18/2020 Collected: 04/18/2020 Reported: 04/18/2020 15:11 Reported Physicians See Note None Note: Reported Physicians:Ordering: Maya AlvarengaAttending: Maya Barron Reviewed by Maya Braron MD on 04/19; All test results are final unless otherwise noted. ADD ON MICROSCOPIC [facility] Ordered by Maya Barron MD on 04/16/2020 Collected: 04/16/2020 Reported: 04/16/2020 23:51 ADD ON MICROSCOPIC See Note (0-5) None Note: NOTES OTHER/NOT INTERPRETED Bacteria UrnS Ql Micro SMALL AMOUNT Bacteria UrnS Ql Micro SMALL AMOUNT Bacteria UrnS Ql Micro L Bacteria UrnS Ql Micro Bacteria UrnS Ql Micro Bacteria UrnS Ql Micro Bacteria UrnS Ql Micro [id number] Bacteria UrnS Ql Micro Bacteria UrnS Ql [...] otherwise noted. Reported Physicians [facility] Ordered by Maya Barron MD on 04/16/2020 Collected: 04/16/2020 Reported: 04/16/2020 23:52 Reported Physicians See Note None Note: Reported Physicians:Ordering: Jose E JoseodAttending: Damon VinodCopy To: Maya Barron Reviewed by Maya Barron MD on 04/17; All test results are final unless otherwise noted. UA W/ CULTURE IF ABNORMAL [facility] Ordered by Maya Barron MD on 04/16/2020 Collected: 04/16/2020 Reported: 04/16/2020 23:51 Urobilinogen Ur Ql See Note (0.2-1 EU/dl) None Note: 0.2 EU/dl0.2 EU/[id number] E U/dlResponsible Observer: UROBILINOGEN UROBILINOGEN 300.4500 (C) RBC # Ur Strip NEGATIVE (NEGATIVE) None Note: Responsible Observer: BLOOD BLOOD 300.4652 (C) Prot Ur Ql Strip See Note (NEGATIVE) None Note: [id number] EResponsible Observer: PROTEIN PROTEIN 300.3750 (C) Ketones Ur Ql Strip See Note (NEGATIVE) None Note: [id number] ble Observer: KETONE KETONE 300.3900 (C) Bilirub Ur Ql Strip.auto See Note (NEGATIVE) None Note: [id number] EResponsible Observer: BILIRUBIN BILIRUBIN 300.4550 (C) Glucose Ur Strip.auto-mCnc NEGATIVE (NEGATIVE) None Note: Responsible Observer: GLUCOSE GLUC OSE 300.3850 (C) Appearance Ur See Note (CLEAR) None Note: CLEARCLEARLCLEARResponsible Observ er: APPEARANCE APPEARANCE 300.3400 (A) Color Ur See Note None Note: YELLOWYELLOWLYELLOWResponsible Obs erver: COLOR COLOR 300.3330 (A) Leukocyte esterase Ur Ql Strip See Note (NEGATIVE) None Note: [id number] E@DO MICRO!!!!A Culture has been added to this specimen per established criteriaResponsible Observer: LEUKOCYTES LEUKOCYTES 300.3576 (C) Nitrite Ur Ql Strip See Note (NEGATIVE) None Note: [id number] EResponsible Observer: NITRITE NITRITE 300.3652 (B) pH [...] otherwise noted. Urine culture [facility] Ordered by Maya Barron MD [...] otherwise noted. Reported Physicians [facility] Ordered by Maya Barron MD on 04/16/2020 Collected: 04/16/2020 Reported: 04/18/2020 06:47 Reported Physicians See Note None Note: Reported Physicians:Ordering: Damon VinodAttending: Jose E JoseodCopy To: Maya Barron Reviewed by Maya Barron MD on 04/18; All test results are final unless otherwise noted. CBC W AUTO DIFF [facility] Ordered by Maya Barron MD [...] Auto See Note (0-2) N (Normal) Note: [id number] Ob charger: IG% IG% 100.1375 (B) Hct VFr Bld [...] test results are final unless otherwise noted. [facility], QUANTITATIVE [facility] Ordered by Maya Barron MD [...] 50,000 3RD TRIMESTER 1,000 - 50,000Responsible Observer: [facility],QUANT [facility], QUANTITATIVE 600.5006 (G) Reviewed by Maya Barron MD on 04/17; All test results are final unless otherwise noted. Reported Physicians [facility] Ordered by Maya Barron MD on 04/16/2020 Collected: 04/16/2020 Reported: 04/16/2020 22:47 Reported Physicians See Note None Note: Reported Physicians:Ordering: Randy Joseending: Alix Jose To: Maya Barron Reviewed by Maya Barron MD on 04/17; All test results are final unless otherwise noted. CMP [facility] Ordered by Maya Barron MD [...] otherwise noted. Reported Physicians [facility] Ordered by Maya Barron MD on 04/16/2020 Collected: 04/16/2020 Reported: 04/16/2020 22:44 Reported Physicians See Note None Note: Reported Physicians:Ordering: Randy Joseending: Jose E JoseodCopyifan To: Maya Barron Reviewed by Maya Barron MD on 04/17; All test results are final unless otherwise noted. LIPASE [facility] Ordered by Maya Barron MD on 04/16/2020 Collected: 04/16/2020 Reported: 04/16/2020 22:44 Lipase SerPl-cCnc 107 enzyme_unit_per_liter (73-393) N (Normal) Note: Responsible Observer: Lipase Lipas e 400.2310 (G) Reviewed by Maya Barron MD on 04/17; All test results are final unless otherwise noted. Reported Physicians [facility] Ordered by Maya Barron MD on 04/16/2020 Collected: 04/16/2020 Reported: 04/16/2020 22:44 Reported Physicians See Note None Note: Reported Physicians:Ordering: Damon Jose EodAttending: Damon, VinodCopy To: Maya Barron Reviewed by Maya Barron MD on 04/17; All test results are final unless otherwise noted. Type and Screen [facility] Ordered by Maya Barron MD [...] otherwise noted. Reported Physicians [facility] Ordered by Maya Barron MD on 04/16/2020 Collected: 04/16/2020 Reported: 04/16/2020 23:09 Reported Physicians See Note None Note: Reported Physicians:Ordering: Jose E JoseodAttending: Damon, VinodCopy To: Maya Barron Reviewed by Maya Barron MD on 04/17; All test results are final unless otherwise noted. [facility] Ordered by Maya Barron MD on 04/10/2020 [address] [place], [address] Collected: 04/10/2020 Reported: 04/11/2020 11:35 tel : [...] test results are final unless otherwise noted. [facility]house [facility] Ordered by Maya Barron MD on 04/10/[address] [place] [address], [address] Collected: 04/10/2020 Reported: 04/11/2020 11:35 tel : [...] Ordered by Maya Barron MD on 04/10/[address] [place] [address], [facility] Collected: 04/10/2020 Reported: 04/11/2020 11:35 tel : ext. [phone] TSH 1.336 uIu/mL (0.5-5.8) None Note: Responsible Observer: AW Reviewed by Maya Barron MD on 04/12; All test results are final unless otherwise noted. -[facility] Ordered by Maya Barron MD on 02/25/2020 Collected: 02/25/2020 Reported: 02/28/2020 15:53 C trach rRNA XXX Ql ТАТЬЯНА+probe See Note (NOT DETECTED) None Note: NOT DETECTEDNOT DETECTEDLNOT DETEC TEDNOT [id number] DETECTEDResponsible Observer: C.Trach RNA Chlamydia trachomatis DNA-ТАТЬЯНА [id number] 913.9900 ([facility]) N gonorrhoea rRNA XXX Ql ТАТЬЯНА+probe See Note (NOT DETECTED) None Note: NOT DETECTEDNOT DETECTEDLNOT DETEC TEDNOT [id number] DETECTEDResponsible Observer: GC RNA Neisseria gonorrhoeae DNA -ТАТЬЯНА 46904898 913.9905 ([facility]) Chlamydia/GC DNA Note SEE NOTE None Note: The analytical performance charact eristics of thisassay, when used to test SurePath(TM) specimens have beendetermined by [employer]. The modifications havenot been cleared or approved by the FDA. This assay hasbeen validated pursuant to the CLIA regulations and isused for clinical purposes.For additional information, please refer tohttps://education.KLab.[employer]/faq/HLG923(This link is being provided for information/educational purposes only.)THIS TEST WAS PERFORMED AT:[facility] [address]CLAUDY ONEILLesponsible Observer: GC/Chlam Note Chlamydia/GC DNA Note 27145182 913.9907 (A) NOTES See Note None Note: Source Of Specimen: URINE Reviewed by Maya Barron MD on 02/28; All test results are final unless otherwise noted. Reported Physicians [facility] Ordered by Maya Barron MD on 02/25/2020 Collected: 02/25/2020 Reported: 02/28/2020 15:54 Reported Physicians See Note None Note: Reported Physicians:Ordering: Bia Alvarenga: Maya Barron Reviewed by Maya Barron MD on 02/28; All test results are final unless otherwise noted. Urine culture-[facility] Ordered by Maya Barron MD on 02/25/2020 Collected: 02/25/2020 Reported: 02/26/2020 13:38 Urine culture result No growth None Reviewed by Maya Barron MD on 02/27; All test results are final unless otherwise noted. Reported Physicians [facility] Ordered by Maya Barron MD on 02/25/2020 Collected: 02/25/2020 Reported: 02/26/2020 13:39 Reported Physicians See Note None Note: Reported Physicians:Ordering: Bia Alvarenga: Maya Barron Reviewed by Maya Barron MD on 02/27; All test results are final unless otherwise noted. Test Office Lab Ordered by Maya Barron MD on 02/25/[address] [place] [address] [place], [address] Specimen Source: Urine Collected: 02/25/2020 Reporte d: 02/25/2020 11:15 tel:[phone] Urine HCG neg (negative) N (Normal) Reviewed by Maya Barron MD on 02/24; All test results are final unless otherwise noted. Urinalysis w/out microscopy Office Lab Ordered by Maya Barron MD on 02/25/2020 [address] [place], [address] Specimen Source: Urine Collected: 02/25/2020 Reporte d: 02/25/2020 11:02 tel:[phone] bilirubin neg (neg) N (Normal) blood neg [...] W/ CULTURE IF ABNORMAL [facility] Ordered by Maya Barron MD on 01/29/2020 Collected: 01/29/2020 Reported: 01/29/2020 00:22 Urobilinogen Ur Ql See Note (0.2-1 EU/dl) None Note: 1 EU/dl1 EU/dlL1 EU/dl1 EU/wyS2706 1285933 EU/dlResponsible Observer: UROBILINOGEN UROBILINOGEN 300.4500 (C) RBC # Ur Strip NEGATIVE (NEGATIVE) None Note: Responsible Observer: BLOOD BLOOD 300.4652 (C) Prot Ur Ql Strip See Note (NEGATIVE) None Note: NEGATIVENEGATIVELNEGATIVENEGATIVEL [id number] Observer: PROTEIN PROTEIN 300.3750 (C) Ketones Ur Ql Strip See Note (NEGATIVE) None Note: 15 mg/dL15 mg/dLL15 mg/dL15 mg/dLL 553945519302 mg/dLResponsible Observer: KETONE KETONE 300.3900 (C) Bilirub Ur Ql Strip.auto See Note (NEGATIVE) None Note: NEGATIVENEGATIVELNEGATIVENEGATIVEL [id number] Observer: BILIRUBIN BILIRUBIN 300.4550 (C) Glucose Ur Strip.auto-mCnc NEGATIVE (NEGATIVE) None Note: Responsible Observer: GLUCOSE GLUC OSE 300.3850 (C) Appearance Ur See Note (CLEAR) None Note: CLEARCLEARLCLEARCLEARLCLEARRespons ible Observer: APPEARANCE APPEARANCE 300.3400 (A) Color Ur See Note None Note: YELLOWYELLOWLYELLOWYELLOWLYELLOWRe sponsible Observer: COLOR COLOR 300.3330 (A) Leukocyte esterase Ur Ql Strip See Note (NEGATIVE) None Note: NEGATIVENEGATIVELNEGATIVENEGATIVEL [id number] Observer: LEUKOCYTES LEUKOCYTES 300.3576 (C) Nitrite Ur Ql Strip See Note (NEGATIVE) None Note: NEGATIVENEGATIVELNEGATIVENEGATIVEL [id number] Observer: NITRITE NITRITE 300.3652 (B) pH Ur [...] otherwise noted. Reported Physicians [facility] Ordered by Maya Barron MD on 01/29/2020 Collected: 01/29/2020 Reported: 01/29/2020 00:22 Reported Physicians See Note None Note: Reported Physicians:Ordering: Yoli NapolesAttending: Charles Silva To: Maya Barron Reviewed by Maya Barron MD on 01/30; All test results are final unless otherwise noted. BHCG,SERUM QUALITATIVE [facility] Ordered by Maya Barron MD [...] otherwise noted. Reported Physicians [facility] Ordered by Maya Barron MD on 01/28/2020 Collected: 01/28/2020 Reported: 01/28/2020 22:58 Reported Physicians See Note None Note: Reported Physicians:Ordering: Yoli NapolesAttending: Charles Silva To: Maya Barron Reviewed by Maya Barron MD on 01/30; All test results are final unless otherwise noted. CBC W AUTO DIFF [facility] Ordered by Maya Barron MD [...] Auto See Note (0-2) N (Normal) Note: [id number] ible Observer: IG% IG% 100.1375 (B) Hct [...] test results are final unless otherwise noted. [facility] Ordered by Maya Barron [...] otherwise noted. Reported Physicians [facility] Ordered by Maya Barron MD on 01/28/2020 Collected: 01/28/2020 Reported: 01/28/2020 23:00 Reported Physicians See Note None Note: Reported Physicians:Ordering: Yoli NapolesAttending: Charles Silva To: Maya Barron Reviewed by Maya Barron MD on 01/30; All test results are final unless otherwise noted. Urinalysis w/out microscopy Office Lab Ordered by Maya Barron MD on [address] [place] [address], [phone] Specimen Source: Urine Collected: Reported: 2020 11:41 tel:[phone] bilirubin NEGATIVE (neg) N (Normal) blood NEGATIVE [...] Ordered by Maya Barron MD on 12/27/[address] [place] [address], [phone] Specimen Source: Urine Collected: Reported: 2019 13:46 tel:[phone] Urine HCG negative (negative) N (Normal) Reviewed [...] Procedures and Surgical History Includes: Procedures from 12/15/2019 through 12/14/2020 Procedures Code Diagnosis Performing Provider Service Location Service Date REVISIT- office visit KAYLEIGH 23 weeks gestatio n of Maya Barron MD [facility], [facility] 12/05/2020 REVISIT- office visit KAYLEIGH 22 weeks gestatio n of Maya Barron MD [facility], [facility] 11/28/2020 REVISIT- office visit KAYLEIGH 21 weeks gestatio n of Maya Barron MD [facility], [facility] 11/21/2020 REVISIT- office visit KAYLEIGH 20 weeks gestatio n of Maya Barron MD [facility], [facility] 11/14/2020 no charge procedure NC Palpitations Maya Barron MD [facility], [facility] 11/03/2020 no charge procedure NC Palpitations Maya Barron MD [facility], [facility] 10/31/2020 REVISIT- office visit KAYLEIGH 18 weeks gestatio n of Maya Barron MD [facility], [facility] 10/31/2020 REVISIT- office visit KAYLEIGH 17 weeks gestatio n of Maya Barron MD [facility], [facility] 10/24/2020 no charge procedure NC Palpitations Maya Barron MD [facility], [facility] 10/17/2020 REVISIT- office visit KAYLEIGH 16 weeks gestatio n of Maya Barron MD [facility], [facility] 10/17/2020 Holter Monitor, Physician review & interpretation only [id number] Palpitations Michel Villalba MD [facility] Outpt 10/11/2020 REVISIT- office visit KAYLEIGH 15 weeks gestatio n of Maya Barron MD [facility], [facility] 10/11/2020 REVISIT- office visit KAYLEIGH 13 weeks gestatio n of Maya Barron MD [facility], [facility] 09/27/2020 REVISIT- office visit KAYLEIGH 12 weeks gestatio n of Maya Barron MD [facility], [facility] 09/19/2020 EKG- Electrocardiogram/12 lead 17882 Chest pain, unspe cified Cat Gutierrez [facility], [facility] 09/11/2020 REVISIT- office visit [facility] 10 [facility]/05/2020 REVISIT- office visit KAYLEIGH 8 weeks gestation of Myaa Barron MD [facility], [facility] 08/22/2020 Urinalysis w/o Microscopy (Distinct Seperate service-same da y) 34189 Frequency of micturition- Urinary Frequency Maya Barron MD [facility], [facility] 08/15/2020 RAPID STREP 80728 Acute pharyngitis, unspecified Maya Barron MD [facility], [facility] 08/15/2020 Initial Obstetrical Care Office Visit OB Le ss than 8 weeks [facility] 021 Urinalysis w/o Microscopy 65351 Frequency of micturiti on- Urinary Frequency Maya Barron MD [facility], [facility] 07/19/2020 REVISIT- office visit KAYLEIGH Threatened Alicja Barron MD [facility], [facility] 05/26/2020 NO CHARGE- Nurse visit- OB establish [employer] Thr eatened , state, incidental Maya Barron MD [facility], [facility] 020 General Health Panel( CMP, CBC, TSH) 12784 Dysmenorrhe a, unspecified Maya Barron MD [facility], [facility] 04/10/2020 Venipuncture (routine) 04446 Dysmenorrhea, unspecified Mariela Barron MD [facility], [facility] 04/10/2020 Brief Emotional Behavior Assessment ( add -59 mod) 31532 Screening for Mental Health/Behavioral Disorder, Unspecified Maya Barron MD [facility], [facility] 04/10/2020 Urine Test 75262 Pelvic and perineal pain, Frequency of micturition- Urinary Frequency Maya Barron MD [facility], [facility] 02/25/2020 Urinalysis w/o Microscopy 18050 Frequency of micturiti on- Urinary Frequency Maya Barron MD [facility], [facility] 02/25/2020 Urine Test 16137 Amenorrhea, unspecified Maya Barron MD [facility], [facility] 12/27/2019 Surgical History Last Updated No [...] 12:00AM Act laya Encounters Includes: Encounters from 12/15/2019 through 12/14/2020 Encounter Provider Location Date Check-In Time Check-Out Time D iagnosis Problem visit - not contagious Bandar Cleveland PA-C [facility], [facility] 12/14/2020 2:08PM 12/05/2020 11:59PM Tension-type Headach e REVISIT- Routine (OB) Visit Maya Barron MD [facility], [facility] 12/05/2020 11:17AM 12:08PM REVISIT- Routine (OB) Visit Maya Barron MD [facility], [facility] 11/28/2020 1:34PM 1:51PM Chronic Care Mgt - Office Visit Maya Barron MD [facility], [facility] 11/21/2020 2:10PM 2:35PM Fracture of Fift h Cervical Vertebral Body, History of Psychiatric Disorders, Reactive Airway Disease REVISIT- Routine (OB) Visit Maya Barron MD [facility], [facility] 11/21/2020 11:33AM 12:01PM REVISIT- Routine (OB) Visit Maya Barron MD [facility], [facility] 11/14/2020 9:55AM 10:36AM REVISIT- Routine (OB) Visit Maya Barron MD [facility], [facility] 11/07/2020 11:42AM 12:02PM OB- ILL VISIT Maya Barron MD [facility], [facility] 11/03/2020 3:45PM 4:29PM , Generalized Anxie ty Disorder, Panic Disorder, Chest Pain Chronic Care Mgt - Office Visit Maya Barron MD [facility], [facility] 11/03/2020 2:37PM 3:38PM Chronic Care Mgt - Office Visit Maya Barron MD [facility], [facility] 10/31/2020 3:23PM 3:24PM Fracture of Fift h Cervical Vertebral Body, History of Psychiatric Disorders, Reactive Airway Disease REVISIT- Routine (OB) Visit Maya Barron MD [facility], [facility] 10/31/2020 9:54AM 10:24AM Chronic Care Mgt - Office Visit Maya Barron MD [facility], [facility] 10/24/2020 2:16PM 11:59PM REVISIT- Routine (OB) Visit Maya Barron MD [facility], [facility] 10/24/2020 10:00AM 10:47AM REVISIT- Routine (OB) Visit Maya Barron MD [facility], [facility] 10/17/2020 11:24AM 12:12PM Chronic Care Mgt - Office Visit Maya Barron MD [facility], [facility] 10/17/2020 11:25AM 12:11PM Fracture of Fift h Cervical Vertebral Body, History of Psychiatric Disorders, Reactive Airway Disease REVISIT- Routine (OB) Visit Maya Barron MD [facility], [facility] 10/11/2020 9:44AM 10:15AM OB- ILL VISIT Maya Barron MD [facility], [facility] 10/04/2020 2:12PM 2:31PM Presyncope Syndrome, Tachyca rdia, Palpitations, Difficulty Breathing (Dyspnea), Weeks of Gestation - 14 REVISIT- Routine (OB) Visit Maya Barron MD [facility], [facility] 09/27/2020 1:36PM 1:59PM telephone conversation Michel Villalba MD 09/19/2020 9:43PM 09/19/2020 11:59PM Atypical Chest Pain REVISIT- Routine (OB) Visit Maya Barron MD [facility], [facility] 09/19/2020 9:48AM 10:14AM REVISIT- Routine (OB) Visit Cat Gutierrez [facility], [facility] 09/11/2020 3:22PM 4:16PM REVISIT- Routine (OB) Visit Cat Gutierrez [facility], [facility] 09/05/2020 9:37AM 10:00AM TCMNV phone call- NO CHARGE Cat Gutierrez [facility] 09/04/2020 09/05/2020 4:54PM 09/05/2020 11:59PM [Patient Encounter] Cat Gutierrez [facility] 08/31/2020 021 2:21PM 08/22/2020 11:59PM telephone conversation Michel Villalba MD 08/2808/22/2020 11:00AM 08/22/2020 11:59PM REVISIT- Routine (OB) Visit Maya Barron MD [facility], [facility] 08/22/2020 1:56PM 2:19PM sick visit Maya Barron MD [facility], [facility] 0 08/15/2020 9:36AM 10:12AM Upper Respiratory Infection Acute, Pollakiuria Obstetrics/ first visit Cat Gutierrez [facility], [facility] 08/09/2020 9:22AM 10:56AM followup Cat Gutierrez [facility], [facility] 0 08/02/2020 10:18AM 11:42AM Generalized Anxiety Disorder , Early Stage, Abdominal Pain telephone conversation Michel Villalba MD 07/26/2020 7:59AM 07/26/2020 11:59PM [Patient Encounter] Cat Gutierrez [facility] 07/28/2020 021 2:20PM 07/26/2020 11:59PM followup Maya Barron MD [facility] 0 07/26/2020 10:39AM 11:02AM , Generalized Anxie ty Disorder sick visit Bandar Cleveland PA-C [facility] 3:36PM 4:30PM Pyrexia followup Maya Barron MD [facility] 0 07/19/2020 10:52AM 11:30AM , Generalized Anxie ty Disorder, Pollakiuria followup Maya Barron MD [facility] 1 09/11/2019 10:43AM 11:14AM Atypical Chest Pain, Adjustm ent Disorder followup Maya Barron MD [facility] 1 08/07/2019 10:43AM 10:59AM Missed followup Maya Barron MD [facility] 05/26 1:45PM 2:11PM with Threatened Problem visit - not contagious Maya Barron MD [facility] 05/24/2020 11:13AM 12:00PM with T hreatened [Patient Encounter] Maya Barron MD 05/24/2020 020 10:17AM 04/19/2020 11:59PM followup Maya Barron MD [facility] 1 11:51AM 12:08PM ANNUAL PE-followup Maya Barron MD [facility] 04/10/2020 8:42AM 9:13AM Routine History and Physical Adult (18 - 64 Yrs), Dysmenorrhea sick visit Maya Barron MD [facility] 0 03/06/2020 3:32PM 3:42PM Sinusitis sick visit Maya Barron MD [facility] 0 02/25/2020 10:46AM 11:12AM Pollakiuria, Female Pelvic P ain followup Maya Barron MD [facility] 01/31 2:25PM 2:51PM Back Strain followup Maya Barron MD [facility] 12/26 1:25PM 1:42PM Amenorrhea, Clostridium Difficile Insurance Includes: Active Insurance Policies Plan Name Member ID Group # Subscriber Relationship Effective Da greg 1 - MANAGED MEDICAID [facility] [id number] Georgiana Pickard Self 2020 - Unknown Advance Directives Includes: Current Advance DirectivesNo Advance Directives Recorded Health Concerns Includes: Active Health ConcernsNo Active Health Concerns Recorded Goals Includes: Active GoalsNo Active Goals Recorded Interventions Includes: Interventions for active GoalsNo Interventions Recorded Evaluations & Outcomes Includes: Evaluations & Outcomes for active GoalsNo Outcomes Recorded
--- OUTSIDE RECORDS SUMMARY | 2021-04-29 16:56 | CCD ---
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 Ultrasound OB US-20wk (Anatomy) state, in cidental 11/20/20 Maya Barron MD Future Appointments Date Time Location Provider REVISIT- Routine (OB) Visit 11/07/2020 11:45AM [facility] Maya Barron MD Findings Encounter Date Community [...] elsewhere for physical therapy service ANNUAL PE-followup exam with Maya Barron MD 04/07/2019 Discussed treatment plan with the marifer ent. Exam findings consistent with muscle strain, no cardiovascular component, risk factors or concerning exam findings. Recommended moist heat, limiting aggravating activities and to monitor for now. See back with any worsening or persistent symptoms, questions or concerns sick visit with Cat Gutierrez [facility] 10/30/2018 Assessments Includes: Assessments for all patient encounters Findings Encounter Date Fracture of fifth cervical vertebral body Chronic [...] surance provided today. 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 on health maintenance [Encounter for general adult medical examination with abnormal findings] ANNUAL PE-followup exam30 with Maya Barron MD 04/07/2019 Vaginal candidiasis sick visit with [facility] 02/11 Pharyngitis urgent visit with Bandar Cleveland PA-C 2018 Sprained ribs ; left sick visit with [facility] Strain of muscle and tendon of front wall of thorax si ck visit with [facility] 10/30/2018 Fracture of fifth cervical vertebral body No Fault with Wanda a [facility] 03/04/2018 Late effects of accident No Fault with [facility] 0 03/04/2018 Instructions Instructions not supported for this document typeNo Instructions Recorded Medical Equipment - Implanted Devices Includes: Current and historical DevicesNo Medical Equipment Recorded Medications Includes: Current and historical Medications Current Medications (continue as prescribed) Sertraline HCl 100 MG Oral Tablet 10/24/2020 [...] ve airway disease 2 puffs q4hr prn Colace 100 MG Oral Capsule 06/07/2020 Provider: Maya Barron MD Diagnosis: 1 PO BID Ventolin HFA 108 (90 Base)MCG/ACT Inhalation Aerosol Solutio n 03/04/2018 Provider: Diagnosis: /Folic Acid Oral Tablet 03/04/2018 Provider : Diagnosis: Past Medications on file Monistat 7 Combo Pack Chava 100 & [...] Maya Barron MD Diagnosis: 1 PO QID Vancomycin HCl 125 MG Oral Capsule [...] Recorded Vital Signs Includes: Vital Signs from 11/04/2019 through 11/03/2020 Vital Name 11/03/2020 04:01P 10/31/2020 10:02A 10/24/2020 10:12A 10/17/2020 11:34A 10/11/2020 09:56A Blood Pressure Sitting L 100/62 100/60 100/60 110/56 BP Cuff Size Regular Regular Regular Regular Regular Pulse Rate-Sitting (bpm) 80 88 80 80 76 Respiration Rate (breaths/min) 20 20 20 20 20 Weight (lb) 117 120 120 118 120 Blood Pressure Sitting R 100/60 Vital Name 10/04/2020 02:18P 09/27/2020 01:44P 09/19/2020 09:58A 09/11/2020 03:39P 09/05/2020 09:48A Blood Pressure Sitting L 110/60 98/62 100/60 BP Cuff Size Regular Regular Regular Pulse Rate-Sitting (bpm) 116 76 76 Respiration Rate (breaths/min) 24 20 20 Weight (lb) 118 120 119 118 119 Blood Pressure Sitting (mmHg) 104/60 110/68 Vital Name 08/22/2020 02:14P 08/15/2020 09:54A 08/09/2020 09:27A 08/02/2020 10:58A 07/26/2020 10:46A Pulse Rate-Sitting (bpm) 78 72 72 64 86 Respiration Rate (breaths/min) 18 20 20 18 Weight (lb) 121 121 123 124 Blood Pressure Sitting (mmHg) 112/60 100/72 90/50 98/60 118/76 Temp-Tympanic (F) 97.3 Height (in) 65 65 Body Mass Index (kg/m2) 20.1 2 0.6 Body Surface Area (m2) 1.60 1. 61 Temp-Oral (F) 98.5 Oxygen Saturation (%) 98 Vital Name 07/25/2020 04:09P 07/19/2020 11:05A 07/11/2020 10:56A 06/07/2020 10:51A 05/26/2020 01:50P Blood Pressure Sitting L 102/62 BP Cuff Size Regular Pulse Rate-Sitting (bpm) 80 114 78 72 86 Respiration Rate (breaths/min) 20 18 20 20 Weight (lb) 126 121.6 125 119 118.2 Blood Pressure Sitting (mmHg) 116/80 120/80 124/80 118/72 Temp-Tympanic (F) 98.2 Height (in) 65 65 64 Body Mass Index (kg/m2) 20.2 20.8 20.4 Body Surface Area (m2) 1.60 1.62 1.57 Temp-Oral (F) 98.2 98.5 Oxygen Saturation (%) 98 98 Vital Name 05/24/2020 12:01P 04/19/2020 11:58A 04/10/2020 08:48A 03/06/2020 03:38P 02/25/2020 10:59A Pulse Rate-Sitting (bpm) 87 72 102 72 Respiration Rate (breaths/min) 20 20 20 20 Weight (lb) 117.8 116 116.2 Blood Pressure Sitting (mmHg) 110/72 108/60 118/82 Height (in) 64 Body Mass Index (kg/m2) 19.9 Body Surface Area (m2) 1.55 Oxygen Saturation (%) 97 Vital Name 02/01/2020 02:38P 12/27/2019 01:31P 12/07/2019 04:04P 11/22/2019 03:25P 11/15/2019 01:12P Pulse Rate-Sitting (bpm) 88 68 75 72 74 Respiration Rate (breaths/min) 18 18 20 20 Weight (lb) 114 Blood Pressure Sitting (mmHg) 90/58 98/60 98/70 Temp-Oral (F) 97.6 97.6 Pain Level 6 Vital Name 11/05/2019 11:42A Pulse Rate-Sitting (bpm) 72 Respiration Rate (breaths/min) 20 Weight (lb) 149 Blood Pressure Sitting (mmHg) 108/64 Results Includes: Results from 11/04/2019 through 11/03/2020 [facility] Quantitative [facility] Ordered by Maya Barron MD on 10/23/2020 Collected: 10/23/2020 Reported: 10/23/2020 01:21 B-HCG [facility] [id number] MilliInternationalUnitsPerMilliLiter_[Arbitrary_Con (0-10) H (High) Note: @Instrument will autodiluteAPPROXI MATE GESTATION AGE APRROXIMATE HCG RANGE 0-1 WEEK 0 - 50 1-2 WEEKS 40 - 300 2-3 WEEKS 100 - 1,000 3-4 WEEKS 500 - 6,000 1-2 MONTHS 5,000 - 200,000 2-3 MONTHS 10,000 - 100,000 2ND TRIMESTER 3,000 - 50,000 3RD TRIMESTER 1,000 - 50,000Responsible Observer: [facility] Quant [facility] Quantitative 600.5006 (G) Reviewed by Maya Barron MD on 10/23; All test results are final unless otherwise noted. Reported Physicians [facility] Ordered by Maya Barron MD on 10/23/2020 Collected: 10/23/2020 Reported: 10/23/2020 01:21 Reported Physicians See Note None Note: Reported Physicians:Ordering: Yoli NapolesAttending: Yoli SilvaCopy To: Maya Barron Reviewed by Maya Barron MD on 10/23; All test results are final unless otherwise noted. CBC W AUTO DIFF [facility] Ordered by Maya Barron [...] Auto See Note (0-2) N (Normal) Note: [id number] Ob windows server engineer: IG% IG% 100.1375 (B) Hct VFr Bld [...] results are final unless otherwise noted. D-DIMER [facility] Ordered by Maya Barron [...] are final unless otherwise noted. Reported Physicians [facility] Ordered by Maya Barron MD on 10/23/2020 Collected: 10/23/2020 Reported: 10/23/2020 01:22 Reported Physicians See Note None Note: Reported Physicians:Ordering: Yoli NapolesAttending: Yoli SilvaCopyifan To: Maya Barron Reviewed by Maya Barron MD on 10/23; All test results are final unless otherwise noted. TROPONIN [facility] Ordered by Maya Barron MD on 10/23/2020 Collected: 10/23/2020 Reported: 10/23/2020 01:03 Troponin I SerPl-mCnc Less Than 0.015 (0.00-0.09) N (Normal) Note: Less than 0.09 NG/ML Negative 0.10 - 0.77 NG/ML High Risk0.78 NG/ML or Greater PositiveThe WHO defined the cutoff (definition for diagnosis of ME)for this method as 0.78 ng/ml.Responsible Observer: Troponin I Troponin I 600.1101 (G) Reviewed by Maya Barron MD on 10/23; All test results are final unless otherwise noted. Reported Physicians [facility] Ordered by Maya Barron MD on 10/23/2020 Collected: 10/23/2020 Reported: 10/23/2020 01:03 Reported Physicians See Note None Note: Reported Physicians:Ordering: Brook yeung, YoliAttending: Charles Silva To: Maya Barron Reviewed by Maya Barron MD on 10/23; All test results are final unless otherwise noted. FREE T4 (LAB) [facility] Ordered by Maya Barron MD on 10/21/2020 Collected: 10/21/2020 Reported: 10/21/2020 15:17 T4 Free SerPl-mCnc 0.97 NanoGramsPerDeciLiter_[Mass_Concentration_Units] (0.89-1.76) N (Normal) Note: Responsible Observer: FREE T4 Free Thyroxine 600.7005 (D) Reviewed by Maya Barron MD on 10/23; All test results are final unless otherwise noted. Reported Physicians [facility] Ordered by Maya Barron MD on 10/21/2020 Collected: 10/21/2020 Reported: 10/21/2020 15:17 Reported Physicians See Note None Note: Reported Physicians:Ordering: Math is, TimothyAttending: Pardo, TimothyCopy To: Maya Barron Reviewed by Maya Barron MD on 10/23; All test results are final unless otherwise noted. TSH [facility] Ordered by Maya Barron MD on 10/21/2020 Collected: 10/21/2020 Reported: 10/21/2020 15:17 TSH SerPl DL<=0.005 mIU/L-aCnc 1.40 MicroInternationalUnitsPerMilliLiter_[Arbitrary_Con (0.35-5. 50) N (Normal) Note: Responsible Observer: TSH TSH 600 .7055 (D) Reviewed by Maya Barron MD on 10/23; All test results are final unless otherwise noted. Reported Physicians [facility] Ordered by Maya Barron MD on 10/21/2020 Collected: 10/21/2020 Reported: 10/21/2020 15:17 Reported Physicians See Note None Note: Reported Physicians:Ordering: Math is, TimothyAttending: Pardo, TimothyCopy To: Maya Barron Reviewed by Maya Barron MD on 10/23; All test results are final unless otherwise noted. UA W/ CULTURE IF ABNORMAL [facility] Ordered by Maya Barron MD on 10/19/2020 Collected: 10/19/2020 Reported: 10/19/2020 16:31 Urobilinogen Ur Ql See Note (0.2-1 EU/dl) None Note: 0.2 EU/dl0.2 EU/[id number] E U/dlResponsible Observer: UROBILINOGEN UROBILINOGEN 300.4500 (C) RBC # Ur Strip NEGATIVE (NEGATIVE) None Note: Responsible Observer: BLOOD BLOOD 300.4652 (C) Prot Ur Ql Strip See Note (NEGATIVE) None Note: [id number] EResponsible Observer: PROTEIN PROTEIN 300.3750 (C) Ketones Ur Ql Strip See Note (NEGATIVE) None Note: [id number] EResponsible Observer: KETONE KETONE 300.3900 (C) Bilirub Ur Ql Strip.auto See Note (NEGATIVE) None Note: [id number] EResponsible Observer: BILIRUBIN BILIRUBIN 300.4550 (C) Glucose Ur Strip.auto-mCnc 100 mg/dl (NEGATIVE) None Note: Responsible Observer: GLUCOSE GLUC OSE 300.3850 (C) Appearance Ur See Note (CLEAR) None Note: CLEARCLEARLCLEARResponsible Observ er: APPEARANCE APPEARANCE 300.3400 (A) Color Ur See Note None Note: YELLOWYELLOWLYELLOWResponsible Obs erver: COLOR COLOR 300.3330 (A) Leukocyte esterase Ur Ql Strip See Note (NEGATIVE) None Note: [id number] EResponsible Observer: LEUKOCYTES LEUKOCYTES 300.3576 (C) Nitrite Ur Ql Strip See Note (NEGATIVE) None Note: [id number] EResponsible Observer: NITRITE NITRITE 300.3652 (B) pH [...] are final unless otherwise noted. Reported Physicians [facility] Ordered by Maya Barron MD on 10/19/2020 Collected: 10/19/2020 Reported: 10/19/2020 16:31 Reported Physicians See Note None Note: Reported Physicians:Ordering: Les Vanegas AAttending: Fady Raza To: Maya Barron Reviewed by Maya Barron MD on 10/20; All test results are final unless otherwise noted. URINE DRUG SCREEN -([facility]) [facility] Ordered by Maya Barron MD on 10/19/2020 Collected: 10/19/2020 Reported: 10/19/2020 16:40 PCP Ur Ql Scn>25 ng/mL See Note (Cutoff 25) None Note: [id number] E@Reenter manual test result: NEGATIVE@by Jia Lentz at 10/19/20 1639.Responsible Observer: PCP Urine Phencyclidine (PCP) Scrn 400.5120 (A) THC Ur Ql Scn>50 ng/mL See Note (Cutoff 50) None Note: [id number] EResponsible Observer: Marijuana (THC) Ur Marijuana (THC) Screen 400.5110 (A) Benzodiaz Ur Ql Scn See Note (Cutoff 150) None Note: [id number] E@Reenter manual test result: NEGATIVE@by Jia Lentz at 10/19/20 1640.Responsible Observer: Benzodiazepines Urine Benzodiazepines Screen 400.5170 (A) Opiates Ur Ql Scn See Note (Cutoff 100) None Note: [id number] E@Reenter manual test result: NEGATIVE@by Jia Lentz at 10/19/20 1640.Responsible Observer: Opiates Urine Opiates Screen 400.5150 (A) Tricyclics Ur Ql Scn See Note (Cutoff 300) None Note: [id number] E@Reenter manual test result: NEGATIVE@by Jia Lentz at 10/19/20 1640.Responsible Observer: TCA Ur Tricyclic Antidepressants 400.5180 (A) Cocaine Ur Ql Scn See Note (Cutoff 150) None Note: [id number] E@Reenter manual test result: NEGATIVE@by Jia Lentz at 10/19/20 1640.Responsible Observer: Cocaine Urine Cocaine Screen 400.5130 (A) Propoxyph+Nor Ur Ql Scn See Note (Cutoff 300) None Note: [id number] E@Reenter manual test result: NEGATIVE@by Jia Lentz at 10/19/20 1640.Responsible Observer: Propoxyphene Urine Propoxyphene Screen 400.5220 (A) Methadone Ur Ql Scn See Note (Cutoff 200) None Note: [id number] E@Reenter manual test result: NEGATIVE@by Jia Lentz at 10/19/20 1640.Responsible Observer: Methadone Urine Methadone Screen 400.5190 (A) Methamphet Ur Ql Scn See Note (Cutoff 500) None Note: [id number] E@Reenter manual test result: NEGATIVE@by Jia Lentz at 10/19/20 1640.Responsible Observer: Methamphetamine Urine Methamphetamines Screen 400.5140 (A) oxyCODONE Ur Ql Scn See Note (Cutoff 100) None Note: [id number] E@Reenter manual test result: NEGATIVE@by Jia Lentz at 10/19/20 1640.Responsible Observer: Oxycodone Urine Oxycodone Screen 400.5210 (A) Buprenorphine Ur Ql See Note (Cutoff 10) None Note: [id number] E@Reenter manual test result: NEGATIVE@by Jia Lentz at 10/19/20 1640.Responsible Observer: Buprenorphine Urine Buprenorphine Screen 400.5230 (A) Amphetamines Ur Ql Scn>500 ng/mL See Note (Cutoff 500) None Note: [id number] E@Reenter manual test result: NEGATIVE@by Jia Lentz at 10/19/20 1640.Responsible Observer: Amphetamines Urine Amphetamines Screen 400.5160 (A) Barbiturates Ur Ql Scn>200 ng/mL See Note (Cutoff 200) None Note: [id number] E@Reenter manual test result: NEGATIVE@by Jia Lentz at 10/19/20 1640.Responsible Observer: Barbiturates Urine Barbiturates 400.5200 (A) Reviewed by Maya Barron MD on 10/20; All test results are final unless otherwise noted. Reported Physicians [facility] Ordered by Maya Barron MD on 10/19/2020 Collected: 10/19/2020 Reported: 10/19/2020 16:40 Reported Physicians See Note None Note: Reported Physicians:Ordering: Les Vanegas: Fday Raza To: Maya Barron Reviewed by Maya Barron MD on 10/20; All test results are final unless otherwise noted. TSH w/ reflex to Free T4 [facility] Ordered by Maya Barron MD on 10/19/2020 Collected: 10/19/2020 Reported: 10/19/2020 16:08 TSH SerPl DL<=0.005 mIU/L-aCnc 1.66 MicroInternationalUnitsPerMilliLiter_[Arbitrary_Con (0.35-5. 50) N (Normal) Note: Responsible Observer: TSH TSH 600 .7060 (D) Reviewed by Maya Barron MD on 10/20; All test results are final unless otherwise noted. Reported Physicians [facility] Ordered by Maya Barron MD on 10/19/2020 Collected: 10/19/2020 Reported: 10/19/2020 16:08 Reported Physicians See Note None Note: Reported Physicians:Ordering: Les Vanegas: Fady Raza To: Maya Barron Reviewed by Maya Barron MD on 10/20; All test results are final unless otherwise noted. TROPONIN [facility] Ordered by Maya Barron MD on 10/19/2020 Collected: 10/19/2020 Reported: 10/19/2020 16:10 Troponin I SerPl-mCnc Less Than 0.015 (0.00-0.09) N (Normal) Note: Less than 0.09 NG/ML Negative 0.10 - 0.77 NG/ML High Risk0.78 NG/ML or Greater PositiveThe WHO defined the cutoff (definition for diagnosis of ME)for this method as 0.78 ng/ml.Responsible Observer: Troponin I Troponin I 600.1101 (G) Reviewed by Maya Barron MD on 10/20; All test results are final unless otherwise noted. Reported Physicians [facility] Ordered by Maya Barron MD on 10/19/2020 Collected: 10/19/2020 Reported: 10/19/2020 16:10 Reported Physicians See Note None Note: Reported Physicians:Ordering: Les Vanegasding: Fady Raza To: Maya Barron Reviewed by Maya Barron MD on 10/20; All test results are final unless otherwise noted. CRP, C-REACTIVE PROTEIN [facility] Ordered by Maya Barron MD on 10/19/2020 Collected: 10/19/2020 Reported: 10/19/2020 16:08 CRP SerPl-mCnc 7.5 MilliGramsPerLiter_[Mass_Concentration_Units] (0.0-5.0) H (High) Note: Responsible Observer: CRP C-Reacti ve Protein 401.4355 (H) Reviewed by Maya Barron MD on 10/20; All test results are final unless otherwise noted. SED RATE [facility] Ordered by Maya Barron MD on 10/19/2020 Collected: 10/19/2020 Reported: 10/19/2020 16:32 ESR Bld Qn Westrgrn 22 (0-20) H (High) Note: @Reenter manual test result: 22@by Jia Lentz at 10/19/20 1632.Responsible Observer: SED RATE SED RATE 100.6400 (B) Reviewed by Maya Barron MD on 10/20; All test results are final unless otherwise noted. Reported Physicians [facility] Ordered by Maya Barron MD on 10/19/2020 Collected: 10/19/2020 Reported: 10/19/2020 16:33 Reported Physicians See Note None Note: Reported Physicians:Ordering: Les Vanegastending: Fady Raza To: Maya Barron Reviewed by Maya Barron MD on 10/20; All test results are final unless otherwise noted. CMP [facility] Ordered by Maya Barron [...] unless otherwise noted. CBC W AUTO DIFF [facility] Ordered by Maya Barron [...] Auto See Note (0-2) N (Normal) Note: [id number] Ob windows server engineer: IG% IG% 100.1375 (B) Hct VFr Bld [...] are final unless otherwise noted. Reported Physicians [facility] Ordered by Maya Barron MD on 10/19/2020 Collected: 10/19/2020 Reported: 10/19/2020 16:33 Reported Physicians See Note None Note: Reported Physicians:Ordering: Les Vanegastending: Fady Raza To: Maya Barron Reviewed by Maya Barron MD on 10/20; All test results are final unless otherwise noted. PT/PTT [facility] Ordered by Maya Barron [...] are final unless otherwise noted. Reported Physicians [facility] Ordered by Maya Barron MD on 10/08/2020 Collected: 10/08/2020 Reported: 10/08/2020 03:22 Reported Physicians See Note None Note: Reported Physicians:Ordering: Sana Recinosending: Sammie Ann To: Maya Barron Reviewed by Maya Barron MD on 10/09; All test results are final unless otherwise noted. BMP [facility] Ordered by Maya Barron [...] are final unless otherwise noted. Reported Physicians [facility] Ordered by Maya Barron MD on 10/08/2020 Collected: 10/08/2020 Reported: 10/08/2020 03:21 Reported Physicians See Note None Note: Reported Physicians:Ordering: Sana Recinosending: Jasper AnnhCopy To: Maya Barron Reviewed by Maya Barron MD on 10/09; All test results are final unless otherwise noted. CBC W AUTO DIFF [facility] Ordered by Maya Barron [...] Auto See Note (0-2) N (Normal) Note: [id number] Ob windows server engineer: IG% IG% 100.1375 (B) Hct VFr Bld [...] results are final unless otherwise noted. MAGNESIUM [facility] Ordered by Maya Barron MD on 10/08/2020 Collected: 10/08/2020 Reported: 10/08/2020 03:17 Magnesium SerPl-mCnc 1.8 MilliGramsPerDeciLiter_[Mass_Concentration_Units] (1.3-2.7) N (Normal) Note: Responsible Observer: Magnesium Ma gnesium 400.3300 (G) Reviewed by Maya Barron MD on 10/09; All test results are final unless otherwise noted. D-DIMER [facility] Ordered by Maya Barron [...] are final unless otherwise noted. Reported Physicians [facility] Ordered by Maya Barron MD on 10/08/2020 Collected: 10/08/2020 Reported: 10/08/2020 03:27 Reported Physicians See Note None Note: Reported Physicians:Ordering: Sana Recinosending: Sammie Ann To: Maya Barron Reviewed by Maya Barron MD on 10/09; All test results are final unless otherwise noted. TSH w/ reflex to Free T4 [facility] Ordered by Maya Barron MD on 10/04/2020 Collected: 10/04/2020 Reported: 10/04/2020 17:42 TSH SerPl DL<=0.005 mIU/L-aCnc 1.92 MicroInternationalUnitsPerMilliLiter_[Arbitrary_Con (0.35-5. 50) N (Normal) Note: Responsible Observer: TSH TSH 600 .7060 (D) Reviewed by Maya Barron MD on 10/09; All test results are final unless otherwise noted. Reported Physicians [facility] Ordered by Maya Barron MD on 10/04/2020 Collected: 10/04/2020 Reported: 10/04/2020 17:42 Reported Physicians See Note None Note: Reported Physicians:Ordering: Les Vanegasding: Fady Raza To: Maya Barron Reviewed by Maya Barron MD on 10/09; All test results are final unless otherwise noted. CBC W AUTO DIFF [facility] Ordered by Maya Barron [...] Auto See Note (0-2) N (Normal) Note: [id number] Ob windows server engineer: IG% IG% 100.1375 (B) Hct VFr Bld [...] are final unless otherwise noted. Reported Physicians [facility] Ordered by Maya Barron MD on 10/04/2020 Collected: 10/04/2020 Reported: 10/04/2020 17:42 Reported Physicians See Note None Note: Reported Physicians:Ordering: Les Vanegas: Fady Raza To: Maya Barron Reviewed by Maya Barron MD on 10/09; All test results are final unless otherwise noted. SED RATE [facility] Ordered by Maya Barron MD on 10/04/2020 Collected: 10/04/2020 Reported: 10/04/2020 18:05 ESR Bld Qn Westrgrn 16 (0-20) N (Normal) Note: @Reenter manual test result: 16@by Jia Lentz at 10/04/20 1805.Responsible Observer: SED RATE SED RATE 100.6400 (B) Reviewed by Maya Barron MD on 10/09; All test results are final unless otherwise noted. Reported Physicians [facility] Ordered by Maya Barron MD on 10/04/2020 Collected: 10/04/2020 Reported: 10/04/2020 18:06 Reported Physicians See Note None Note: Reported Physicians:Ordering: Les Vanegas: Fady Raza To: Maya Barron Reviewed by Maya Barron MD on 10/09; All test results are final unless otherwise noted. TROPONIN [facility] Ordered by Maya Barron MD on 10/04/2020 Collected: 10/04/2020 Reported: 10/04/2020 17:35 Troponin I SerPl-mCnc Less Than 0.015 (0.00-0.09) N (Normal) Note: Less than 0.09 NG/ML Negative 0.10 - 0.77 NG/ML High Risk0.78 NG/ML or Greater PositiveThe WHO defined the cutoff (definition for diagnosis of ME)for this method as 0.78 ng/ml.Responsible Observer: Troponin I Troponin I 600.1101 (G) Reviewed by Maya Barron MD on 10/09; All test results are final unless otherwise noted. Reported Physicians [facility] Ordered by Maya Barron MD on 10/04/2020 Collected: 10/04/2020 Reported: 10/04/2020 17:35 Reported Physicians See Note None Note: Reported Physicians:Ordering: Les Vanegastending: Fady Raza To: Maya Barron Reviewed by Maya Barron MD on 10/09; All test results are final unless otherwise noted. CBC W AUTO DIFF [facility] Ordered by Maya Barron [...] Auto See Note (0-2) N (Normal) Note: [id number] Ob windows server engineer: IG% IG% 100.1375 (B) Hct VFr Bld [...] are final unless otherwise noted. Reported Physicians [facility] Ordered by Maya Barron MD on 10/03/2020 Collected: 10/03/2020 Reported: 10/03/2020 20:03 Reported Physicians See Note None Note: Reported Physicians:Ordering: Yoli NapolesAttending: Charles Silva To: Maya Barron Reviewed by Maya Barron MD on 10/04; All test results are final unless otherwise noted. CG Quantitative [facility] Ordered by Maya Barron MD on 10/03/2020 Collected: 10/03/2020 Reported: 10/03/2020 20:23 B-HCG [facility] [address] MilliInternationalUnitsPerMilliLiter_[Arbitrary_Con (0-10) H (High) Note: @Instrument will [...] are final unless otherwise noted. Reported Physicians [facility] Ordered by Maya Barron MD on 10/03/2020 Collected: 10/03/2020 Reported: 10/03/2020 20:23 Reported Physicians See Note None Note: Reported Physicians:Ordering: Yoli NapolesAttending: Charles Silva To: Maya Barron Reviewed by Maya Barron MD on 10/04; All test results are final unless otherwise noted. TROPONIN [facility] Ordered by Maya Barron MD on 10/03/2020 Collected: 10/03/2020 Reported: 10/03/2020 20:07 Troponin I SerPl-mCnc Less Than 0.015 (0.00-0.09) N (Normal) Note: Less than 0.09 NG/ML Negative 0.10 - 0.77 NG/ML High Risk0.78 NG/ML or Greater PositiveThe WHO defined the cutoff (definition for diagnosis of ME)for this method as 0.78 ng/ml.Responsible Observer: Troponin I Troponin I 600.1101 (G) Reviewed by Maya Barron MD on 10/04; All test results are final unless otherwise noted. Reported Physicians [facility] Ordered by Maya Barron MD on 10/03/2020 Collected: 10/03/2020 Reported: 10/03/2020 20:07 Reported Physicians See Note None Note: Reported Physicians:Ordering: Yoli NapolesAttending: Charles Silva To: Maya Barron Reviewed by Maya Barron MD on 10/04; All test results are final unless otherwise noted. MANUAL DIFF [facility] Ordered by Maya Barron [...] are final unless otherwise noted. Reported Physicians [facility] Ordered by Maya Barron MD on 10/03/2020 Collected: 10/03/2020 Reported: 10/03/2020 19:56 Reported Physicians See Note None Note: Reported Physicians:Ordering: Yoli NapolesAttending: Charles Silva To: Maya Barron Reviewed by Maya Barron MD on 10/04; All test results are final unless otherwise noted. FREE T4 (LAB) [facility] Ordered by Maya Barron MD on 10/03/2020 Collected: 10/03/2020 Reported: 10/03/2020 20:08 T4 Free SerPl-mCnc 0.97 NanoGramsPerDeciLiter_[Mass_Concentration_Units] (0.89-1.76) N (Normal) Note: Responsible Observer: FREE T4 Free Thyroxine 600.7005 (D) Reviewed by Maya Barron MD on 10/04; All test results are final unless otherwise noted. Reported Physicians [facility] Ordered by Maya Barron MD on 10/03/2020 Collected: 10/03/2020 Reported: 10/03/2020 20:08 Reported Physicians See Note None Note: Reported Physicians:Ordering: Yoli NapolesAttending: Charles Silva To: Maya Barron Reviewed by Maya Barron MD on 10/04; All test results are final unless otherwise noted. ADD ON MICROSCOPIC [facility] Ordered by Maya Barron MD on 10/03/2020 Collected: 10/03/2020 Reported: 10/03/2020 19:52 ADD ON MICROSCOPIC See Note (0-5) None Note: NOTES OTHER/NOT INTERPRETED Bacteria UrnS Ql Micro SMALL AMOUNT Bacteria UrnS Ql Micro SMALL AMOUNT Bacteria UrnS Ql Micro L Bacteria UrnS Ql Micro Bacteria UrnS Ql Micro Bacteria UrnS Ql Micro Bacteria UrnS Ql Micro [id number] Bacteria UrnS Ql Micro Bacteria UrnS Ql [...] are final unless otherwise noted. Reported Physicians [facility] Ordered by Maya Barron MD on 10/03/2020 Collected: 10/03/2020 Reported: 10/03/2020 19:52 Reported Physicians See Note None Note: Reported Physicians:Ordering: Cliff Napolesending: Charles Silva To: Maya Barron Reviewed by Maya Barron MD on 10/04; All test results are final unless otherwise noted. UA W/ CULTURE IF ABNORMAL [facility] Ordered by Maya Barron MD on 10/03/2020 Collected: 10/03/2020 Reported: 10/03/2020 19:52 Urobilinogen Ur Ql See Note (0.2-1 EU/dl) None Note: 0.2 EU/dl0.2 EU/[id number] E U/dlResponsible Observer: UROBILINOGEN UROBILINOGEN 300.4500 (C) RBC # Ur Strip NEGATIVE (NEGATIVE) None Note: Responsible Observer: BLOOD BLOOD 300.4652 (C) Prot Ur Ql Strip See Note (NEGATIVE) None Note: [id number] EResponsible Observer: PROTEIN PROTEIN 300.3750 (C) Ketones Ur Ql Strip See Note (NEGATIVE) None Note: [id number] EResponsible Observer: KETONE KETONE 300.3900 (C) Bilirub Ur Ql Strip.auto See Note (NEGATIVE) None Note: [id number] EResponsible Observer: BILIRUBIN BILIRUBIN 300.4550 (C) Glucose Ur Strip.auto-mCnc NEGATIVE (NEGATIVE) None Note: Responsible Observer: GLUCOSE GLUC OSE 300.3850 (C) Appearance Ur See Note (CLEAR) None Note: CLEARCLEARLCLEARResponsible Observ er: APPEARANCE APPEARANCE 300.3400 (A) Color Ur See Note None Note: YELLOWYELLOWLYELLOWResponsible Obs erver: COLOR COLOR 300.3330 (A) Leukocyte esterase Ur Ql Strip See Note (NEGATIVE) None Note: [id number]@DO MICR O!!!!A Culture has been added to this specimen per established criteriaResponsible Observer: LEUKOCYTES LEUKOCYTES 300.3576 (C) Nitrite Ur Ql Strip See Note (NEGATIVE) None Note: [id number] EResponsible Observer: NITRITE NITRITE 300.3652 (B) pH [...] are final unless otherwise noted. Urine culture [facility] Ordered by Maya Barron MD on 10/03/2020 Collected: 10/03/2020 Reported: 10/04/2020 13:10 Bacteria Ur Cult See Note None Note: NGNo growth.L1NG NOTES See Note None Note: @10/03/201951: Urine culture adde d. RFLXG = CULT.ADD. Reviewed by Maya Barron MD on 10/04; All test results are final unless otherwise noted. Reported Physicians [facility] Ordered by Maya Barron MD on 10/03/2020 Collected: 10/03/2020 Reported: 10/04/2020 13:10 Reported Physicians See Note None Note: Reported Physicians:Ordering: Yoli NapolesAttending: Charles Silva To: Maya Barron Reviewed by Maya Barron MD on 10/04; All test results are final unless otherwise noted. BHCG, QUANTITATIVE [facility] Ordered by Maya Barron MD on 09/18/2020 Collected: 09/18/2020 Reported: 09/18/2020 20:21 B-HCG [facility] [id number] MilliInternationalUnitsPerMilliLiter_[Arbitrary_Con (0-10) H (High) Note: APPROXIMATE GESTATION [...] are final unless otherwise noted. Reported Physicians [facility] Ordered by Maya Barorn MD on 09/18/2020 Collected: 09/18/2020 Reported: 09/18/2020 20:22 Reported Physicians See Note None Note: Reported Physicians:Ordering: Yoli NapolesAttending: Charles Silva To: Maya Barron Reviewed by Maya Barron MD on 09/20; All test results are final unless otherwise noted. 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 Reported Physicians [facility] Ordered by Maya Barron MD on 09/18/2020 Collected: 09/18/2020 Reported: 09/18/2020 20:10 Reported Physicians See Note None Note: Reported Physicians:Ordering: Cliff Napolesending: Charles Silva To: Maya Barron Reviewed by Maya Barron MD on 09/20; All test results are final unless otherwise noted. TROPONIN [facility] Ordered by Maya Barron MD on 09/18/2020 Collected: 09/18/2020 Reported: 09/18/2020 20:10 Troponin I SerPl-mCnc Less Than 0.015 (0.00-0.09) N (Normal) Note: Less than 0.09 NG/ML Negative 0.10 - 0.77 NG/ML High Risk0.78 NG/ML or Greater PositiveThe WHO defined the cutoff (definition for diagnosis of ME)for this method as 0.78 ng/ml.Responsible Observer: Troponin I Troponin I 600.1101 (G) Reviewed by Maya Barron MD on 09/20; All test results are final unless otherwise noted. Reported Physicians [facility] Ordered by Maya Barron MD on 09/18/2020 Collected: 09/18/2020 Reported: 09/18/2020 20:10 Reported Physicians See Note None Note: Reported Physicians:Ordering: Yoli NapolesAttending: Charles Silva To: Maya Barron Reviewed by Maya Barron MD on 09/20; All test results are final unless otherwise noted. Urine culture [facility] Ordered by Cat Gutierrez RPA on 09/11/2020 Collected: 09/11/2020 Reported: 09/12/2020 13:11 Bacteria Ur Cult See Note None Note: NGNo growth.L1NG NOTES See Note None Note: GEORGIANA PICKARD IN OTHER NAME IN MEDICAL RECORD Reviewed by Cat Gutierrez RPA on 09/12; All test results are final unless otherwise noted. Reported Physicians [facility] Ordered by Cat Gutierrez RPA on 09/11/2020 Collected: 09/11/2020 Reported: 09/12/2020 13:11 Reported Physicians See Note None Note: Reported Physicians:Ordering: Cat ConwayAttending: Cat Gutierrez Reviewed by Cat Gutierrez RPA on 09/12; All test results are final unless otherwise noted. UA W/ CULTURE IF ABNORMAL [facility] Ordered by Maya Barron MD on 09/10/2020 Collected: 09/10/2020 Reported: 09/10/2020 17:48 Urobilinogen Ur Ql See Note (0.2-1 EU/dl) None Note: 0.2 EU/dl0.2 EU/[id number] E U/dlResponsible Observer: UROBILINOGEN UROBILINOGEN 300.4500 (C) RBC # Ur Strip NEGATIVE (NEGATIVE) None Note: Responsible Observer: BLOOD BLOOD 300.4652 (C) Prot Ur Ql Strip See Note (NEGATIVE) None Note: [id number] EResponsible Observer: PROTEIN PROTEIN 300.3750 (C) Ketones Ur Ql Strip See Note (NEGATIVE) None Note: [id number] ble Observer: KETONE KETONE 300.3900 (C) Bilirub Ur Ql Strip.auto See Note (NEGATIVE) None Note: [id number] EResponsible Observer: BILIRUBIN BILIRUBIN 300.4550 (C) Glucose Ur Strip.auto-mCnc NEGATIVE (NEGATIVE) None Note: Responsible Observer: GLUCOSE GLUC OSE 300.3850 (C) Appearance Ur See Note (CLEAR) None Note: CLEARCLEARLCLEARResponsible Observ er: APPEARANCE APPEARANCE 300.3400 (A) Color Ur See Note None Note: YELLOWYELLOWLYELLOWResponsible Obs erver: COLOR COLOR 300.3330 (A) Leukocyte esterase Ur Ql Strip See Note (NEGATIVE) None Note: [id number] EResponsible Observer: LEUKOCYTES LEUKOCYTES 300.3576 (C) Nitrite Ur Ql Strip See Note (NEGATIVE) None Note: [id number] EResponsible Observer: NITRITE NITRITE 300.3652 (B) pH [...] are final unless otherwise noted. Reported Physicians [facility] Ordered by Maya Barron MD on 09/10/2020 Collected: 09/10/2020 Reported: 09/10/2020 17:48 Reported Physicians See Note None Note: Reported Physicians:Ordering: Les Vanegas AAttending: Fady Raza To: Maya Barron Reviewed by Maya Barron MD on 09/11; All test results are final unless otherwise noted. BHCG, QUANTITATIVE [facility] Ordered by Maya Barron MD on 09/10/2020 Collected: 09/10/2020 Reported: 09/10/2020 15:48 B-HCG SerPl-aCnc 71880 MilliInternationalUnitsPerMilliLiter_[Arbitrary_Con (0-10) H (High) Note: @Instrument will [...] are final unless otherwise noted. Reported Physicians [facility] Ordered by Maya Barron MD on 09/10/2020 Collected: 09/10/2020 Reported: 09/10/2020 15:49 Reported Physicians See Note None Note: Reported Physicians:Ordering: Les Vanegas: Fady Raza To: Maya Barron Reviewed by Maya Barron MD on 09/11; All test results are final unless otherwise noted. ABO/Rh Type [facility] Ordered by Maya Barron MD on 09/10/2020 Collected: 09/10/2020 Reported: 09/10/2020 15:43 Blood bank studies Yes None Note: Responsible Observer: Prev. Histor y? Previous History? 100.0800 (A) Blood Type See Note None Note: OPO PositiveLResponsible Observer: Blood Type Blood Type 110.0950 (C) Reviewed by Maya Barron MD on 09/11; All test results are final unless otherwise noted. Reported Physicians [facility] Ordered by Maya Barron MD on 09/10/2020 Collected: 09/10/2020 Reported: 09/10/2020 15:43 Reported Physicians See Note None Note: Reported Physicians:Ordering: Les Vanegas: Fady Raza To: Maya Barron Reviewed by Maya Barron MD on 09/11; All test results are final unless otherwise noted. COVID [facility] Ordered by Maya Barron [...] findings,re- testing should be considered in consultation with[facility] health authorities. Laboratory test results shouldalways be considered in the context of clinicalobservations and epidemiological data in making a finaldiagnosis and patient management decisions.Please review the "Fact Sheets" and FDA authorizedlabeling available for health care providers andpatients using the following websites:https://www.[employer] .[employer] [place] [employer]/home/Covid-19/HCP/NAAT/fact-mnrcm1hwbly://www.[employer].[place] [employer]/home/Cov id-19/Patients/NAAT/fact-xxfeo7Mgdn test has been authorized by the FDA under anEmergency Use Authorization (EUA) for use by authorizedlaboratories.Due to the current public health emergency, [facility] is receiving a high volume of samples [...] information about COVID-19 can be foundat the [employer] website:www.[employer] [place] [employer]/Covid19.THIS TEST WAS PERFORMED AT:[facility] [address]TIXEUU MERATI,MDResponsible Observer: COVID-19 COVID-19 ТАТЬЯНА (SARS-CoV-2) [id number] 914.1134 ([facility]) Reviewed by Maya Barron MD on 08/25; All test results are final unless otherwise noted. Reported Physicians [facility] Ordered by Maya Barron MD on 08/23/2020 Collected: 08/23/2020 Reported: 08/25/2020 03:57 Reported Physicians See Note None Note: Reported Physicians:Ordering: Sana Recinosending: Sammie Ann To: Maya Barron Reviewed by Maya Barron MD on 08/25; All test results are final unless otherwise noted. Rapid Strep [facility] Ordered by Maya Barron MD on 08/15/[address] [place] [address], [phone] Collected: 08/15/2020 Reported: 08/15/2020 11:47 tel :[phone] strep antigen normal (negative) N (Normal) Reviewed by Maya Barron MD on 08/15; All test results are final unless otherwise noted. Urinalysis w/out microscopy [facility] Ordered by Maya Barron MD on 08/15/[address] [place] [address], [phone] Specimen Source: Urine Collected: 08/15/2020 Reporte d: 08/15/2020 11:03 tel:[phone] bilirubin normal (neg) N (Normal) blood normal [...] unless otherwise noted. Extended hours FLU/COV2 NAAT [facility] Ordered by Maya Barron MD on 08/15/2020 Collected: 08/15/2020 Reported: 08/15/2020 15:55 Extended hours FLU/COV2 NAAT See Note None Note: TNPNo Reportable ResultLTNPNo Repo rtable HlqvgsL4N[facility] NOTES See Note None Note: GEORGIANA PICKARD IN OTHER NAME IN MEDICAL RECORD Reviewed by Maya Barron MD on 08/16; All test results are final unless otherwise noted. Reported Physicians [facility] Ordered by Maya Barron MD on 08/15/2020 Collected: 08/15/2020 Reported: 08/15/2020 15:55 Reported Physicians See Note None Note: Reported Physicians:Ordering: Maya AlvarengaAttending: Maya Barron Reviewed by Maya Barron MD on 08/16; All test results are final unless otherwise noted. Sweta Raquel SARS/FLU [facility] Ordered by Maya Barron MD on 08/15/2020 Collected: 08/15/2020 Reported: 08/15/2020 15:55 Sweta Raquel SARS/FLU See Note None Note: Sweta Raquel is a rapid, automated q ualitative anddifferentiation of Influenza type A,B and JQPK-RTJ-6HXRD-RT-PCR testNORMAL VALUE IS "NOT DETECTED".Limitations of the sweta raquel Influenza A/B & TBCT-MSZ-4mnkel method.Modifications to manufacturers recommendation and proceduresmay alter performance of the test.Negative results do not preclude Influenza A,B or SARS- MUR6vjjiwzijeo and should not be used as the [...] out diseases caused by other bacterialor viral pathogens.04999-0AJDL-jgz CoV RNA Resp Ql ТАТЬЯНА+probeLNNSARS SARS-COV-2 NOT [id number]-DID-2 NOT NCIGLIFB74659-1OQEAJ RNA Resp Ql ТАТЬЯНА+probeLNNFLUAInfluenza A Not [id number] A Not Ihhmrxqu36065-1HMSZT RNA Resp Ql ТАТЬЯНА+probeLNNINBInfluenza B Not [id number] B Not Detected NOTES See Note None Note: GEORGIANA PICKARD IN OTHER NAME IN MEDICAL RECORD Reviewed by Maya Barron MD on 08/18; All test results are final unless otherwise noted. Throat culture [facility] Ordered by Maya Barron MD on 08/15/2020 Collected: 08/15/2020 Reported: 08/17/2020 06:37 Throat culture results Normal Deisy None Reviewed by Maya Barron MD on 08/18; All test results are final unless otherwise noted. Reported Physicians [facility] Ordered by Maya Barron MD on 08/15/2020 Collected: 08/15/2020 Reported: 08/17/2020 06:37 Reported Physicians See Note None Note: Reported Physicians:Ordering: Maya AlvarengaAttending: Maya Barron Reviewed by Maya Barron MD on 08/18; All test results are final unless otherwise noted. HPVI [facility] Ordered by Cat Gutierrez RPA on 08/09/2020 Collected: 08/09/2020 Reported: 08/15/2020 06:53 Thin Prep Vag See Note None Note: See scanned reportSee scanned repo rtLSee scanned reportResponsible Observer: TP w/HPV if ASC Thinprep w/HPV if ASCUS 805.1454 ([facility]) NOTES See Note None Note: FLL97-74Siaftcbezu Technique: BRUS H-SPATULABody Site: CERVIX Reviewed by Cat Gutierrez RPA on 08/15; All test results are final unless otherwise noted. Reported Physicians [facility] Ordered by Cat Gutierrez RPA on 08/09/2020 Collected: 08/09/2020 Reported: 08/15/2020 06:53 Reported Physicians See Note None Note: Reported Physicians:Ordering: Atte ndcristiane: Rigo Gutierrez To: Maya Barron Reviewed by Cat Gutierrez RPA on 08/15; All test results are final unless otherwise noted. GCAMP [facility] Ordered by Cat Gutierrez RPA on 08/09/2020 Collected: 08/09/2020 Reported: 08/11/2020 06:52 C trach rRNA XXX Ql ТАТЬЯНА+probe See Note (NOT DETECTED) None Note: NOT DETECTEDNOT [id number] 6NOT DETECTEDResponsible Observer: C.Trach RNA Chlamydia trachomatis DNA-ТАТЬЯНА [id number] 913.9900 ([facility]) N gonorrhoea rRNA XXX Ql ТАТЬЯНА+probe See Note (NOT DETECTED) None Note: NOT DETECTEDNOT [id number] 6NOT DETECTEDResponsible Observer: GC RNA Neisseria gonorrhoeae DNA -ТАТЬЯНА [id number] 913.9905 ([facility]) Chlamydia/GC DNA Note SEE NOTE None Note: The analytical performance charact eristics of thisassay, when used to test SurePath(TM) specimens have beendetermined by [employer]. The modifications havenot been cleared or approved by the FDA. This assay hasbeen validated pursuant to the CLIA regulations and isused for clinical purposes.For additional information, please refer tohttps://education.[employer] [place] [employer]/faq/LOP769(This link is being provided for information/educational purposes only.)THIS TEST WAS PERFORMED AT:[facility] [address]CLAUDY ONEILLesponsible Observer: GC/Chlam Note Chlamydia/GC DNA Note [id number] 913.9907 (A) NOTES See Note None Note: PICKARD:IN OTHER NAME IN MEDICAL RECORD Reviewed by Cat Gutierrez RPA on 08/12; All test results are final unless otherwise noted. Reported Physicians [facility] Ordered by Cat Gutierrez RPA on 08/09/2020 Collected: 08/09/2020 Reported: 08/11/2020 06:52 Reported Physicians See Note None Note: Reported Physicians:Ordering: Atte nding: Rigo Gutierrez To: Maya Barron Reviewed by Cat Gutierrez RPA on 08/12; All test results are final unless otherwise noted. AFFIRM [facility] Ordered by Cat Gutierrez RPA on 08/09/2020 Collected: 08/09/2020 Reported: 08/11/2020 06:52 Dionna species DNA Probe NOT DETECTED (NOT DETECTED) None Note: THIS TEST WAS PERFORMED AT:[facility] [address] [address]LBPIYZCLAUDY ONEILLesponsible Observer: Dionna DNA Dionna species DNA Probe [id number] 913.2350 ([facility]) Gardnerella DNA Probe DETECTED (NOT DETECTED) H (High) Note: Increased levels of G. vaginalis m ay not be significantin the absence of signs and symptoms of bacterialvaginosis.Responsible Observer: Gardnerella DNA Gardnerella DNA Probe [id number] 913.2345 ([facility]) Trichomonas DNA Probe NOT DETECTED (NOT DETECTED) None Note: Responsible Observer: Trichomonas DNA Trichomonas DNA Probe 55363465 913.2340 ([facility]) NOTES See Note None Note: PICKARD:IN OTHER NAME IN MEDICAL RECORD Reviewed on 08/11/2020; All test result s are final unless otherwise noted. Reported Physicians [facility] Ordered by Cat Gutierrez RPA on 08/09/2020 Collected: 08/09/2020 Reported: 08/11/2020 06:52 Reported Physicians See Note None Note: Reported Physicians:Ordering: Atte nding: Rigo Gutierrez To: Maya Barron Reviewed on 08/11/2020; All test result s are final unless otherwise noted. ADD ON MICROSCOPIC [facility] Ordered by Cat Gutierrez RPA on 08/09/2020 Collected: 08/09/2020 Reported: 08/09/2020 12:23 ADD ON MICROSCOPIC See Note (0-5) H (High) Note: NOTES OTHER/NOT INTERPRETED Bacteria UrnS Ql Micro SMALL AMOUNT Bacteria UrnS Ql Micro SMALL AMOUNT Bacteria UrnS Ql Micro L Bacteria UrnS Ql Micro Bacteria UrnS Ql Micro Bacteria UrnS Ql Micro Bacteria UrnS Ql Micro [id number] Bacteria UrnS Ql Micro Bacteria UrnS Ql [...] Ql Micro Mucous Threads UrnS Ql Micro 2372459411 Mucous Threads UrnS Ql Micro Mucous Threads UrnS Ql Micro MODERATE AMOUNT WBC # Ur Manual 5-8 @08/09/20 1210: UA W/ MICRO added. RFLXG = UMIC.Method of Collection:: Clean CatchResponsible Observer: WBC WBC 300.5000 (A) Reviewed by Cat Gutierrez [facility] on 08/12; All test results are final unless otherwise noted. Reported Physicians [facility] Ordered by Cat Gutierrez [facility] on 08/09/2020 Collected: 08/09/2020 Reported: 08/10/2020 17:47 Reported Physicians See Note None Note: Reported Physicians:Ordering: Atte ndcristiane: Cat GutierrezCopy To: Maya Barron Reviewed by Cat Gutierrez [facility] on 08/12; All test results are final unless otherwise noted. MEDMATCH [facility] Ordered by Cat Brenda [facility] on 08/09/2020 Collected: 08/09/2020 Reported: 08/13/2020 15:56 MEDMATCH See scanned report None Note: Responsible Observer: MEDMATCH MED MATCH 910.05796 ([facility]) Reviewed by Cat Gutierrez [facility] on 08/14; All test results are final unless otherwise noted. Reported Physicians [facility] Ordered by Cat Brenda [facility] on 08/09/2020 Collected: 08/09/2020 Reported: 08/13/2020 15:56 Reported Physicians See Note None Note: Reported Physicians:Ordering: Atte nding: Gutierrez, DyanaCopy To: Maya Barron Reviewed by Cat Gutierrez [facility] on 08/14; All test results are final unless otherwise noted. URINALYSIS [facility] Ordered by Cat Gutierrez RPA on 08/09/2020 Collected: 08/09/2020 Reported: 08/09/2020 12:23 Urobilinogen Ur Ql See Note (0.2-1 EU/dl) None Note: 1 EU/dl1 EU/[id number] EU/dlRe sponsible Observer: UROBILINOGEN UROBILINOGEN 300.4500 (C) RBC # Ur Strip NEGATIVE (NEGATIVE) None Note: Responsible Observer: BLOOD BLOOD 300.4650 (C) Prot Ur Ql Strip See Note (NEGATIVE) None Note: [id number] ble Observer: PROTEIN PROTEIN 300.3750 (C) Ketones Ur Ql Strip See Note (NEGATIVE) None Note: [id number] ble Observer: KETONE KETONE 300.3900 (C) Bilirub Ur Ql Strip.auto See Note (NEGATIVE) None Note: [id number] EResponsible Observer: BILIRUBIN BILIRUBIN 300.4550 (C) Glucose Ur Strip.auto-mCnc NEGATIVE (NEGATIVE) None Note: Responsible Observer: GLUCOSE GLUC OSE 300.3850 (C) Appearance Ur See Note (CLEAR) None Note: CLEARCLEARLCLEARResponsible Observ er: APPEARANCE APPEARANCE 300.3400 (A) Color Ur See Note None Note: DARK YELLOWDARK YELLOWLDARK YELLOW Responsible Observer: COLOR COLOR 300.3300 (A) Leukocyte esterase Ur Ql Strip See Note (NEGATIVE) None Note: [id number]@DO MICR O!!!!Responsible Observer: LEUKOCYTES LEUKOCYTES 300.3575 (C) Nitrite Ur Ql Strip See Note (NEGATIVE) None Note: [id number] EResponsible Observer: NITRITE NITRITE 300.3650 (B) pH [...] of Collection:: Clean Catch Reviewed by Cat uGtierrez RPA on 08/14; All test results are final unless otherwise noted. Urine culture [facility] Ordered by Cat Gutierrez RPA on 08/09/2020 Collected: 08/09/2020 Reported: 08/10/2020 08:33 Bacteria Ur Cult See Note None Note: NGNo growth.L1NG Reviewed by Cat Gutierrez RPA on 08/14; All test results are final unless otherwise noted. Type and Screen [facility] Ordered by Cat Gutierrez [...] are final unless otherwise noted. Reported Physicians [facility] Ordered by Cat Gutierrez RPA on 08/09/2020 Collected: 08/09/2020 Reported: 08/09/2020 12:39 Reported Physicians See Note None Note: Reported Physicians:Ordering: Cat ConwayAttending: Rigo Gutierrez To: Maya Barron Reviewed by Cat Gutierrez RPA on 08/10; All test results are final unless otherwise noted. Varicella-Zoster IgG Antibody [facility] Ordered by Cat Gutierrez RPA on 08/09/2020 Collected: 08/09/2020 Reported: 08/10/2020 17:47 VZV IgG Ser [place] 242.10 None Note: Index Interpr [...] Antibody Immunity Screen, ACIF.THIS TEST WAS PERFORMED AT:[facility]KAMBIZ ME RATI,MDResponsible Observer: VARICELLA IGG Varicella-Zoster IgG Antibody [id number] 914.6108 ([facility]) NOTES See Note None Note: Patient Street Address: [address] [place] [address] [address] [place]: [place] [facility] Zip Code: [address]Mqlfesj Reviewed by Cat Gutierrez RPA on 08/12; All test results are final unless otherwise noted. HCV RFX ТАТЬЯНА [facility] Ordered by Cat Gutierrez RPA on 08/09/2020 Collected: 08/09/2020 Reported: 08/10/2020 17:47 HCV Ab Ser Ql See Note (NON-REACTIVE) None Note: [id number] 7NON-REACTIVEResponsible Observer: HEP C ANTIBODY Hepatitis C Antibody [id number] 914.8305 ([facility]) HCV RNA Qualitative (ТАТЬЯНА) 0.54 (<1.00) None Note: HCV antibody was non-reactive. The re is no laboratoryevidence of HCV infection.In most cases, no further action is required. However,if recent HCV exposure is suspected, a test for HCV RNA(test code 50023) is suggested.For additional information please refer tohttp://education.[employer].[place] [employer]/faq/CHU20o7(This link is being provided for informational/educational purposes only.)THIS TEST WAS PERFORMED AT:[facility] [id number] MERATI,MDResponsible Observer: SIG TO C/O SIGNAL TO CUTOFF [id number] [phone] ([employer]) NOTES See Note None Note: Patient Street Address: [address] [place] [address] [address]Patient City: [place] [facility] State: [facility] Zip Code: [address]Oussdzi Reviewed by Cat Gutierrez RPA on 08/12; All test results are final unless otherwise noted. Reported Physicians [facility] Ordered by Cat Gutierrez RPA on 08/09/2020 Collected: 08/09/2020 Reported: 08/10/2020 17:47 Reported Physicians See Note None Note: Reported Physicians:Ordering: Atte nding: Rigo Gutierrez To: Maya Barron Reviewed by Cat Gutierrez RPA on 08/12; All test results are final unless otherwise noted. CBC [facility] Ordered by Cat Gutierrez [...] Auto See Note (0-2) N (Normal) Note: 0.20.2S10702595032.2Responsible Ob windows server engineer: IG% IG% 100.1375 (B) Hct VFr Bld [...] results are final unless otherwise noted. TSH [facility] Ordered by Cat Gutierrez RPA on 08/09/2020 Collected: 08/09/2020 Reported: 08/09/2020 14:24 TSH SerPl DL<=0.005 mIU/L-aCnc 1.18 MicroInternationalUnitsPerMilliLiter_[Arbitrary_Con (0.35-5. 50) N (Normal) Note: Responsible Observer: TSH TSH 600 .7055 (D) Reviewed by Cat Gutierrez RPA on 08/14; All test results are final unless otherwise noted. Lead (Venous) Wh.Bld [facility] Ordered by Cat Gutierrez RPA on 08/09/2020 Collected: 08/09/2020 Reported: 08/10/2020 17:47 Lead Bld-sCnc <1 (<5) None Note: See Note 1Note 1This test was [facility] [employer] and its analytical performancecharacteristics have been determined by [facility]. It has not been cleared or approved by theA. This assay has been validated pursuant to the CLIAregulations and is used for clinical purposes.THIS TEST WAS PERFORMED AT:[facility] [address]LMWJPM MERATI,MDResponsible Observer: Lead, WB Lead, Whole Blood [id number] 911.2190 ([facility]) NOTES See Note None Note: Patient Street Address: [facility] [address]Patient City: [place]: [place] Zip Code: [address]Nnndcvm Reviewed by Cat Gutierrez RPA on 08/14; All test results are final unless otherwise noted. ncPN REF [facility] Ordered by Cat Gutierrez RPA on 08/09/2020 Collected: 08/09/2020 Reported: 08/13/2020 15:26 T pallidum Ab Ser Ql Aggl See Note (Nonreactive) None Note: [id number] onreactiveResponsible Observer: TP-PA Treponema pallidum Ab (TP-PA) [id number] 908.0286 ([facility]) HIV1 RNA SerPl Ql ТАТЬЯНА+probe See Note None Note: TNPNo Reportable ResultLTNPNo Repo rtable ResultLLEP.LIVENTNPResponsible Observer: HIV 1 RNA, QL T HIV 1 RNA, QL TMA [id number] 908.0254 ([facility]) HBV surface Ag SerPl Ql IA See Note (NON-REACTIVE) None Note: [id number]-[id number]-[id number] 5NON-REACTIVEResponsible Observer: HBSAG Hepatitis B Surface Antigen [id number] 910.2004 ([facility]) RUBV IgG SerPl IA-aCnc 1.76 None Note: Index Interpretatio n ----- <0.90 Not consistent with immunity 0.90-0.99 Equivocal > or = 1.00 Consistent with immunityThe presence of rubella IgG antibody suggestsimmunization or past or current infection withrubella virus.THIS TEST WAS PERFORMED AT:[facility] [address]GVUFUG MERATI,CLAUDYesponsible Observer: Rubella IgG Ab Rubella IgG Ab [id number] 911.2840 ([facility]) HIV1 Ab SerPlBld Ql IA.rapid See Note None Note: TNPNo Reportable ResultLTNPNo Repo rtable ResultLLEP.LIVENTNPResponsible Observer: HIV 1 AB HIV 1 AB [id number] 908.0250 ([facility]) HBsAg Confirmation See Note None Note: TNPNo Reportable ResultLTNPNo Repo rtable ResultLLEP.LIVENTNPResponsible Observer: HBsAg Confirm HBsAg Confirmation [id number] ([facility]) HIV (1&2) Screen, 4th Gen NON-REACTIVE [...] for this purpose.For additional information please refer tohttp://education.[employer].[place] [employer]/faq/DWF609(This link is being provided for informational/educational purposes only.)The performance of this assay has not been clinicallyvalidated in patients less than 2 years old.THIS TEST WAS PERFORMED AT:[facility] [address]BVHBQYCLAUDY ONEILLesponsible Observer: HIV ABS HIV (1&2) Screen, 4th Gen [id number] 908.0229 ([facility]) Reviewed by aCt Gutierrez RPA on 08/14; All test results are final unless otherwise noted. Reported Physicians [facility] Ordered by Cat Gutierrez RPA on 08/09/2020 Collected: 08/09/2020 Reported: 08/13/2020 15:27 Reported Physicians See Note None Note: Reported Physicians:Ordering: Atte ndcristiane: Rigo Gutierrez To: Maya Barron Reviewed by Cat Gutierrez RPA on 08/14; All test results are final unless otherwise noted. BHCG, QUANTITATIVE [facility] Ordered by Cat Gutierrez RPA on 08/08/2020 Collected: 08/08/2020 Reported: 08/08/2020 11:53 B-HCG SerPl-aCnc 15017 MilliInternationalUnitsPerMilliLiter_[Arbitrary_Con (0-10) H (High) Note: @Instrument will [...] are final unless otherwise noted. Reported Physicians [facility] Ordered by Cat Gutierrez RPA on 08/08/2020 Collected: 08/08/2020 Reported: 08/08/2020 11:54 Reported Physicians See Note None Note: Reported Physicians:Ordering: Jannet valentineing: Rigo Gutierrez To: Maya Barron Reviewed by Cat Gutierrez RPA on 08/08; All test results are final unless otherwise noted. Type and Screen [facility] Ordered by Cat Gutierrez [...] are final unless otherwise noted. Reported Physicians [facility] Ordered by Cat Gutierrez RPA on 08/01/2020 Collected: 08/01/2020 Reported: 08/01/2020 06:03 Reported Physicians See Note None Note: Reported Physicians:Ordering: Cristino FerreiraAttending: Jos Rivas To: Maya Barron Reviewed by Cat Gutierrez RPA on 08/01; All test results are final unless otherwise noted. BHCG, QUANTITATIVE [facility] Ordered by Cat Gutierrez RPA on 08/01/2020 Collected: 08/01/2020 Reported: 08/01/2020 02:26 [facility] [address] MilliInternationalUnitsPerMilliLiter_[Arbitrary_Con (0-10) H (High) Note: @Instrument will autodiluteAPPROXI MATE GESTATION AGE APRROXIMATE HCG RANGE 0-1 WEEK 0 - 50 1-2 WEEKS 40 - 300 2-3 WEEKS 100 - 1,000 3-4 WEEKS 500 - 6,000 1-2 MONTHS 5,000 - 200,000 2-3 MONTHS 10,000 - 100,000 2ND TRIMESTER 3,000 - 50,000 3RD TRIMESTER 1,000 - 50,000Responsible Observer: BHCG,[facility], QUANTITATIVE 600.5006 (G) Reviewed by Cat Gutierrez RPA on 08/01; All test results are final unless otherwise noted. Reported Physicians [facility] Ordered by Cat Gutierrez [facility] on 08/01/2020 Collected: 08/01/2020 Reported: 08/01/2020 02:26 Reported Physicians See Note None Note: Reported Physicians:Ordering: Aj Ferreiraending: Jos Rivas To: Maya Barron Reviewed by Cat Gutierrez RPA on 08/01; All test results are final unless otherwise noted. CBC W AUTO DIFF [facility] Ordered by Cat Gutierrez [...] Auto See Note (0-2) N (Normal) Note: 0.10.4G38104312141.1Responsible Ob windows server engineer: IG% IG% 100.1375 (B) Hct VFr Bld [...] are final unless otherwise noted. Reported Physicians [facility] Ordered by Cat Gutierrez RPA on 08/01/2020 Collected: 08/01/2020 Reported: 08/01/2020 02:26 Reported Physicians See Note None Note: Reported Physicians:Ordering: Aj Ferreiraending: Jos Rivas To: Maya Barron Reviewed by Cat Gutierrez RPA on 08/01; All test results are final unless otherwise noted. UA W/ CULTURE IF ABNORMAL [facility] Ordered by Cat Gutierrez RPA on 08/01/2020 Collected: 08/01/2020 Reported: 08/01/2020 01:01 Urobilinogen Ur Ql See Note (0.2-1 EU/dl) None Note: 0.2 EU/dl0.2 EU/[id number] E U/dlResponsible Observer: UROBILINOGEN UROBILINOGEN 300.4500 (C) RBC # Ur Strip SMALL (NEGATIVE) None Note: @DO MICRO!!!!Responsible Observer: BLOOD BLOOD 300.4652 (C) Prot Ur Ql Strip See Note (NEGATIVE) None Note: [id number] EResponsible Observer: PROTEIN PROTEIN 300.3750 (C) Ketones Ur Ql Strip See Note (NEGATIVE) None Note: 15 mg/dL15 mg/zML781053748845 mg/d LResponsible Observer: KETONE KETONE 300.3900 (C) Bilirub Ur Ql Strip.auto See Note (NEGATIVE) None Note: [id number] EResponsible Observer: BILIRUBIN BILIRUBIN 300.4550 (C) Glucose Ur Strip.auto-mCnc NEGATIVE (NEGATIVE) None Note: Responsible Observer: GLUCOSE GLUC OSE 300.3850 (C) Appearance Ur See Note (CLEAR) None Note: CLEARCLEARLCLEARResponsible Observ er: APPEARANCE APPEARANCE 300.3400 (A) Color Ur See Note None Note: YELLOWYELLOWLYELLOWResponsible Obs erver: COLOR COLOR 300.3330 (A) Leukocyte esterase Ur Ql Strip See Note (NEGATIVE) None Note: [id number]@DO MICR O!!!!A Culture has been added to this specimen per established criteriaResponsible Observer: LEUKOCYTES LEUKOCYTES 300.3576 (C) Nitrite Ur Ql Strip See Note (NEGATIVE) None Note: [id number] EResponsible Observer: NITRITE NITRITE 300.3652 (B) pH [...] are final unless otherwise noted. Urine culture [facility] Ordered by Cat Gutierrez RPA on 08/01/2020 Collected: 08/01/2020 Reported: 08/02/2020 07:41 Urine culture result See Note None Note: Greater than 100,000 CFU/MLLactoba cilli no senst done NOTES See Note None Note: @08/01/20 0101: Urine culture flavia sawyer RFLXG = CULT.ADD. Reviewed by Cat Gutierrez RPA on 08/02; All test results are final unless otherwise noted. Reported Physicians [facility] Ordered by Cat Gutierrez RPA on 08/01/2020 Collected: 08/01/2020 Reported: 08/02/2020 07:41 Reported Physicians See Note None Note: Reported Physicians:Ordering: Aj Ferreiraending: Jos Rivas To: Maya Barron Reviewed by Cat Gutierrez RPA on 08/02; All test results are final unless otherwise noted. ADD ON MICROSCOPIC [facility] Ordered by Cat Gutierrez RPA on 08/01/2020 Collected: 08/01/2020 Reported: 08/01/2020 01:01 ADD ON MICROSCOPIC See Note (0-5) None Note: NOTES OTHER/NOT INTERPRETED Bacteria UrnS Ql Micro MODERATE AMOUNT Bacteria UrnS Ql Micro MODERATE AMOUNT Bacteria UrnS Ql Micro L Bacteria UrnS Ql Micro Bacteria UrnS Ql Micro Bacteria UrnS Ql Micro Bacteria UrnS Ql Micro [id number] Bacteria UrnS Ql Micro Bacteria UrnS Ql [...] are final unless otherwise noted. Reported Physicians [facility] Ordered by Cat Gutierrez RPA on 08/01/2020 Collected: 08/01/2020 Reported: 08/01/2020 01:01 Reported Physicians See Note None Note: Reported Physicians:Ordering: Aj Ferreiraending: Jos Rivas To: Maya Barron Reviewed by Cat Gutierrez RPA on 08/01; All test results are final unless otherwise noted. BHCG, QUANTITATIVE [facility] Ordered by Cat Gutierrez RPA on 07/31/2020 Collected: 07/31/2020 Reported: 07/31/2020 16:53 B-HCG [facility] [address] MilliInternationalUnitsPerMilliLiter_[Arbitrary_Con (0-10) H (High) Note: @Instrument will [...] are final unless otherwise noted. Reported Physicians [facility] Ordered by Cat Gutierrez RPA on 07/31/2020 Collected: 07/31/2020 Reported: 07/31/2020 16:53 Reported Physicians See Note None Note: Reported Physicians:Ordering: Attchandler valentineing: Cat Gutierrez Reviewed by Cat Gutierrez RPA on 08/01; All test results are final unless otherwise noted. UA W/ CULTURE IF ABNORMAL [facility] Ordered by Cat Gutierrez RPA on 07/27/2020 Collected: 07/27/2020 Reported: 07/27/2020 21:36 Urobilinogen Ur Ql See Note (0.2-1 EU/dl) None Note: 0.2 EU/dl0.2 EU/shC81988956424.2 E U/dlResponsible Observer: UROBILINOGEN UROBILINOGEN 300.4500 (C) RBC # Ur Strip NEGATIVE (NEGATIVE) None Note: Responsible Observer: BLOOD BLOOD 300.4652 (C) Prot Ur Ql Strip See Note (NEGATIVE) None Note: [id number] EResponsible Observer: PROTEIN PROTEIN 300.3750 (C) Ketones Ur Ql Strip See Note (NEGATIVE) None Note: [id number] EResponsible Observer: KETONE KETONE 300.3900 (C) Bilirub Ur Ql Strip.auto See Note (NEGATIVE) None Note: [id number] EResponsible Observer: BILIRUBIN BILIRUBIN 300.4550 (C) Glucose Ur Strip.auto-mCnc NEGATIVE (NEGATIVE) None Note: Responsible Observer: GLUCOSE GLUC OSE 300.3850 (C) Appearance Ur See Note (CLEAR) None Note: CLEARCLEARLCLEARResponsible Observ er: APPEARANCE APPEARANCE 300.3400 (A) Color Ur See Note None Note: YELLOWYELLOWLYELLOWResponsible Obs erver: COLOR COLOR 300.3330 (A) Leukocyte esterase Ur Ql Strip See Note (NEGATIVE) None Note: [id number]@DO MICR O!!!!A Culture has been added to this specimen per established criteriaResponsible Observer: LEUKOCYTES LEUKOCYTES 300.3576 (C) Nitrite Ur Ql Strip See Note (NEGATIVE) None Note: [id number] EResponsible Observer: NITRITE NITRITE 300.3652 (B) pH [...] are final unless otherwise noted. Urine culture [facility] Ordered by Cat Gutierrez RPA on 07/27/2020 Collected: 07/27/2020 Reported: 07/29/2020 07:36 Urine culture result 50,000 CFU/ML Lactobacilli no senst done None NOTES See Note None Note: @07/27/202136: Urine culture adde digna RFLXG = CULT.ADD. Reviewed by Cat Gutierrez RPA on 07/31; All test results are final unless otherwise noted. Reported Physicians [facility] Ordered by Cat Gutierrez RPA on 07/27/2020 Collected: 07/27/2020 Reported: 07/29/2020 07:37 Reported Physicians See Note None Note: Reported Physicians:Ordering: Daquan BustamanteAttending: Daquan GoodCopy To: Maya Barron Reviewed by Cat Gutierrez RPA on 07/31; All test results are final unless otherwise noted. ADD ON MICROSCOPIC [facility] Ordered by Cat Gutierrez RPA on 07/27/2020 Collected: 07/27/2020 Reported: 07/27/2020 21:36 ADD ON MICROSCOPIC See Note (0-5) None Note: NOTES OTHER/NOT INTERPRETED Bacteria UrnS Ql Micro SMALL AMOUNT Bacteria UrnS Ql Micro SMALL AMOUNT Bacteria UrnS Ql Micro L Bacteria UrnS Ql Micro Bacteria UrnS Ql Micro Bacteria UrnS Ql Micro Bacteria UrnS Ql Micro [id number] Bacteria UrnS Ql Micro Bacteria UrnS Ql [...] are final unless otherwise noted. Reported Physicians [facility] Ordered by Cat Gutierrez RPA on 07/27/2020 Collected: 07/27/2020 Reported: 07/27/2020 21:37 Reported Physicians See Note None Note: Reported Physicians:Ordering: Daquan BustamanteAttending: Daquan GoodCopy To: Maya Barron Reviewed by Cat Gutierrez RPA on 07/28; All test results are final unless otherwise noted. BHCG, QUANTITATIVE [facility] Ordered by Cat Gutierrez [...] are final unless otherwise noted. Reported Physicians [facility] Ordered by Cat Gutierrez [facility] on 07/27/2020 Collected: 07/27/2020 Reported: 07/27/2020 22:08 Reported Physicians See Note None Note: Reported Physicians:Ordering: Daquan BustamanteAttending: Ariella Good To: Maya Barron Reviewed by Cat Gutierrez RPA on 07/28; All test results are final unless otherwise noted. CMP [facility] Ordered by Cat Gutierrez [facility] on 07/27/2020 Collected: 07/27/2020 Reported: 07/27/2020 20:36 [...] are final unless otherwise noted. Reported Physicians [facility] Ordered by Cat Gutierrez RPA on 07/27/2020 Collected: 07/27/2020 Reported: 07/27/2020 20:37 Reported Physicians See Note None Note: Reported Physicians:Ordering: Daquan BustamanteAttending: Ariella Good To: Maya Barron Reviewed by Cat Gutierrez RPA on 07/28; All test results are final unless otherwise noted. Type and Screen [facility] Ordered by Cat Gutierrez [...] are final unless otherwise noted. Reported Physicians [facility] Ordered by Cat Gutierrez RPA on 07/27/2020 Collected: 07/27/2020 Reported: 07/27/2020 20:48 Reported Physicians See Note None Note: Reported Physicians:Ordering: Daquan BustamanteAttending: Ariella Good To: Maya Barron Reviewed by Cat Gutierrez RPA on 07/28; All test results are final unless otherwise noted. CBC W AUTO DIFF [facility] Ordered by Cat Gutierrez [...] Auto See Note (0-2) N (Normal) Note: 0.20.9N01974102984.2Responsible Ob windows server engineer: IG% IG% 100.1375 (B) Hct VFr Bld [...] are final unless otherwise noted. Reported Physicians [facility] Ordered by Cat Gutierrez RPA on 07/27/2020 Collected: 07/27/2020 Reported: 07/27/2020 20:11 Reported Physicians See Note None Note: Reported Physicians:Ordering: Daquan BustamanteAttending: Ariella Good To: Maya Barron Reviewed by Cat Gutierrez RPA on 07/28; All test results are final unless otherwise noted. BHCG, QUANTITATIVE [facility] Ordered by Maya Barron MD on 07/26/2020 Collected: 07/26/2020 Reported: 07/26/2020 16:[address] B-[address] [facility] 4155 MilliInternationalUnitsPerMilliLiter_[Arbitrary_Con (0-10) H (High) [...] are final unless otherwise noted. Reported Physicians [facility] Ordered by Maya Barron MD on 07/26/2020 Collected: 07/26/2020 Reported: 07/26/2020 16:48 Reported Physicians See Note None Note: Reported Physicians:Ordering: Maya AlvarengaAttending: Maya Barron Reviewed by Maya Barron MD on 07/27; All test results are final unless otherwise noted. Extended hours FLU/COV2 NAAT [facility] Ordered by Bandar Cleveland PA-C on 07/25/2020 Collected: 07/25/2020 Reported: 07/25/2020 18:47 Extended hours FLU/COV2 NAAT See Note None Note: TNPNo Reportable ResultLTNPNo Repo rtable [id number] Reviewed by Bandar Cleveland PA-C on ; All test results are final unless otherwise noted. Reported Physicians [facility] Ordered by Bandar Cleveland PA-C on 07/25/2020 Collected: 07/25/2020 Reported: 07/25/2020 18:47 Reported Physicians See Note None Note: Reported Physicians:Ordering: Janice Wilsonending: Kami Cleveland To: Health, Public Reviewed by Bandar Cleveland PA-C on ; All test results are final unless otherwise noted. Sweta Raquel SARS/FLU [facility] Ordered by Bandar Cleveland PA-C on 07/25/2020 Collected: 07/25/2020 Reported: 07/25/2020 18:47 Sweta Raquel SARS/FLU See Note None Note: Sweta Raquel is a rapid, automated q ualitative anddifferentiation of Influenza type A,B and NADN-LAR-2KHJC-RT-PCR testNORMAL VALUE IS "NOT DETECTED".Limitations of the sweta raquel Influenza A/B & GQDO-NWM-5ckgxr method.Modifications to manufacturers recommendation and proceduresmay alter performance of the test.Negative results do not preclude Influenza A,B or SARS- SPN5ewecuxyjbc and should not be used as the [...] out diseases caused by other bacterialor viral pathogens.18168-4GKLF-YjC-6 RNA Resp Ql ТАТЬЯНА+probeLNNOSNo O rganisms VywbtmxmG0128499871Na Organisms Detected Reviewed by Bandar Cleveland PA-C on 1; All test results are final unless otherwise noted. Reported Physicians [facility] Ordered by Bandar Cleveland PA-C on 07/25/2020 Collected: 07/25/2020 Reported: 07/25/2020 18:47 Reported Physicians See Note None Note: Reported Physicians:Ordering: Janice Wilsonending: Kami Cleveland To: Health, Public Reviewed by Bandar Cleveland PA-C on 1; All test results are final unless otherwise noted. CBC W AUTO DIFF [facility] Ordered by Maya Barron [...] Auto See Note (0-2) N (Normal) Note: 0.30.9S50972075196.3Responsible Ob windows server engineer: IG% IG% 100.1375 (B) Hct VFr Bld [...] test results are final unless otherwise noted. [facility] Ordered by Maya Barron MD [...] are final unless otherwise noted. Reported Physicians [facility] Ordered by Maya Barron MD on 07/22/2020 Collected: 07/22/2020 Reported: 07/22/2020 02:00 Reported Physicians See Note None Note: Reported Physicians:Ordering: Dominic Landaverdeending: Alon Douglas To: Maya Barron Reviewed by Maya Barron MD on 07/24; All test results are final unless otherwise noted. Extended hours FLU/COV2 NAAT [facility] Ordered by Maya Barron MD on 07/22/2020 Collected: 07/22/2020 Reported: 07/22/2020 01:29 Extended hours FLU/COV2 NAAT See Note None Note: TNPNo Reportable ResultLTNPNo Repo rtable [id number] Reviewed by Maya Barron MD on 07/24; All test results are final unless otherwise noted. Reported Physicians [facility] Ordered by Maya Barron MD on 07/22/2020 Collected: 07/22/2020 Reported: 07/22/2020 01:29 Reported Physicians See Note None Note: Reported Physicians:Ordering: Dominic Landaverdeending: Alon Douglas To: Maya Barron Reviewed by Maya Barron MD on 07/24; All test results are final unless otherwise noted. Sweta Raquel SARS/FLU [facility] Ordered by Maya Barron MD on 07/22/2020 Collected: 07/22/2020 Reported: 07/22/2020 01:29 Sweta Raquel SARS/FLU See Note None Note: Sweta Raquel is a rapid, automated q ualitative anddifferentiation of Influenza type A,B and HKGL-WSQ-2DOGE-RT-PCR testNORMAL VALUE IS "NOT DETECTED".Limitations of the swtea raquel Influenza A/B & UZQO-CNM-7xitvo method.Modifications to manufacturers recommendation and proceduresmay alter performance of the test.Negative results do not preclude Influenza A,B or SARS- ITH0itsnkerkqt and should not be used as the [...] out diseases caused by other bacterialor viral pathogens.[id number]-McF-5 RNA Resp Ql ТАТЬЯНА+probeLNNOSNo O rganisms [id number] Organisms Detected Reviewed by Maya Barron MD on 07/24; All test results are final unless otherwise noted. Reported Physicians [facility] Ordered by Maya Barron MD on 07/22/2020 Collected: 07/22/2020 Reported: 07/22/2020 01:29 Reported Physicians See Note None Note: Reported Physicians:Ordering: Hong LandaverdeAttending: Alon Douglas To: Maya Barron Reviewed by Maya Barron MD on 07/24; All test results are final unless otherwise noted. UA W/ CULTURE IF ABNORMAL [facility] Ordered by Maya Barron MD on 07/22/2020 Collected: 07/22/2020 Reported: 07/22/2020 01:10 Urobilinogen Ur Ql See Note (0.2-1 EU/dl) None Note: 0.2 EU/dl0.2 EU/[id number] E U/dlResponsible Observer: UROBILINOGEN UROBILINOGEN 300.4500 (C) RBC # Ur Strip NEGATIVE (NEGATIVE) None Note: Responsible Observer: BLOOD BLOOD 300.4652 (C) Prot Ur Ql Strip See Note (NEGATIVE) None Note: [id number] EResponsible Observer: PROTEIN PROTEIN 300.3750 (C) Ketones Ur Ql Strip See Note (NEGATIVE) None Note: [id number] EResponsible Observer: KETONE KETONE 300.3900 (C) Bilirub Ur Ql Strip.auto See Note (NEGATIVE) None Note: [id number] EResponsible Observer: BILIRUBIN BILIRUBIN 300.4550 (C) Glucose Ur Strip.auto-mCnc NEGATIVE (NEGATIVE) None Note: Responsible Observer: GLUCOSE GLUC OSE 300.3850 (C) Appearance Ur See Note (CLEAR) None Note: CLEARCLEARLCLEARResponsible Observ er: APPEARANCE APPEARANCE 300.3400 (A) Color Ur See Note None Note: YELLOWYELLOWLYELLOWResponsible Obs erver: COLOR COLOR 300.3330 (A) Leukocyte esterase Ur Ql Strip See Note (NEGATIVE) None Note: [id number] EResponsible Observer: LEUKOCYTES LEUKOCYTES 300.3576 (C) Nitrite Ur Ql Strip See Note (NEGATIVE) None Note: [id number] EResponsible Observer: NITRITE NITRITE 300.3652 (B) pH [...] are final unless otherwise noted. Reported Physicians [facility] Ordered by Maya Barron MD on 07/22/2020 Collected: 07/22/2020 Reported: 07/22/2020 01:11 Reported Physicians See Note None Note: Reported Physicians:Ordering: Hong LandaverdeAttending: Alon Douglas To: Maya Barron Reviewed by Maya Barron MD on 07/24; All test results are final unless otherwise noted. Urine culture [facility] Ordered by Maya Barron MD on 07/19/2020 Collected: 07/19/2020 Reported: 07/21/2020 07:48 Bacteria Ur Cult See Note None Note: NGNo growth.L1NG Reviewed by Maya Barron MD on 07/21; All test results are final unless otherwise noted. Reported Physicians [facility] Ordered by Maya Barron MD on 07/19/2020 Collected: 07/19/2020 Reported: 07/21/2020 07:49 Reported Physicians See Note None Note: Reported Physicians:Ordering: Maya AlvarengaAttending: Maya Barron Reviewed by Maya Barron MD on 07/21; All test results are final unless otherwise noted. BHCG, QUANTITATIVE [facility] Ordered by Maya Barron [...] are final unless otherwise noted. Reported Physicians [facility] Ordered by Maya Barron MD on 07/17/2020 Collected: 07/17/2020 Reported: 07/17/2020 12:40 Reported Physicians See Note None Note: Reported Physicians:Ordering: Maya AlvarengaAttending: Maya Barron Reviewed by Maya Barron MD on 07/17; All test results are final unless otherwise noted. [employer]AS COVID-19 S[employer]OL [facility] Ordered by Maya Barron [...] molecular test, if the virus mutates in thetarget region, Covid-19 may not be detected or may bedetected less predictably.ID NOW COVID-19 is intended for testing a swab directlywithout elution in viral transport media as dilution willresult in decreased detection of low positive samples thatare near the limit of detection of the test.SWAB SAMPLES ELUTED IN VTM ARE NOT APPROPRIATE FOR USE INTHIS TEST.NOSNo Organisms [id number] Organisms Detected Reviewed by Maya Barron MD on 05/31; All test results are final unless otherwise noted. Reported Physicians [facility] Ordered by Maya Barron MD on 05/31/2020 Collected: 05/31/2020 Reported: 05/31/2020 07:08 Reported Physicians See Note None Note: Reported Physicians:Ordering: Johnny HernándezAttending: Suzanne Cazares To: Maya Barron Reviewed by Maya Barron MD on 05/31; All test results are final unless otherwise noted. BHCG, QUANTITATIVE [facility] Ordered by Maya Barron MD on 05/26/2020 Collected: 05/26/2020 Reported: 05/26/2020 14:49 [facility] [address] MilliInternationalUnitsPerMilliLiter_[Arbitrary_Con (0-10) H (High) Note: @Instrument will [...] are final unless otherwise noted. Reported Physicians [facility] Ordered by Maya Barron MD on 05/26/2020 Collected: 05/26/2020 Reported: 05/26/2020 14:50 Reported Physicians See Note None Note: Reported Physicians:Ordering: Maya AlvarengaAttending: Maya Barron Reviewed by Maya Barron MD on 05/26; All test results are final unless otherwise noted. URINALYSIS [facility] Ordered by Maya Barron MD on 05/23/2020 Collected: 05/23/2020 Reported: 05/23/2020 17:19 Urobilinogen Ur Ql See Note (0.2-1 EU/dl) None Note: 0.2 EU/dl0.2 EU/[id number] E U/dlResponsible Observer: UROBILINOGEN UROBILINOGEN 300.4500 (C) RBC # Ur Strip NEGATIVE (NEGATIVE) None Note: Responsible Observer: BLOOD BLOOD 300.4650 (C) Prot Ur Ql Strip See Note (NEGATIVE) None Note: [id number] EResponsible Observer: PROTEIN PROTEIN 300.3750 (C) Ketones Ur Ql Strip See Note (NEGATIVE) None Note: [id number] EResponsible Observer: KETONE KETONE 300.3900 (C) Bilirub Ur Ql Strip.auto See Note (NEGATIVE) None Note: [id number] EResponsible Observer: BILIRUBIN BILIRUBIN 300.4550 (C) Glucose Ur Strip.auto-mCnc NEGATIVE (NEGATIVE) None Note: Responsible Observer: GLUCOSE GLUC OSE 300.3850 (C) Appearance Ur See Note (CLEAR) None Note: CLEARCLEARLCLEARResponsible Observ er: APPEARANCE APPEARANCE 300.3400 (A) Color Ur See Note None Note: YELLOWYELLOWLYELLOWResponsible Obs erver: COLOR COLOR 300.3300 (A) Leukocyte esterase Ur Ql Strip See Note (NEGATIVE) None Note: [id number] EResponsible Observer: LEUKOCYTES LEUKOCYTES 300.3575 (C) Nitrite Ur Ql Strip See Note (NEGATIVE) None Note: [id number] EResponsible Observer: NITRITE NITRITE 300.3650 (B) pH [...] are final unless otherwise noted. Urine culture [facility] Ordered by Maya Barron MD on 05/23/2020 Collected: 05/23/2020 Reported: 05/24/2020 09:24 Bacteria Ur Cult See Note None Note: NGNo growth.L1NG Reviewed by Maya Barron MD on 05/29; All test results are final unless otherwise noted. MEDMATCH [facility] Ordered by Maya Barron MD on 05/23/2020 Collected: 05/23/2020 Reported: 05/26/2020 17:09 MEDMATCH 1.000 (> or = 1.003) None Note: Responsible Observer: MEDMATCH MED MATCH 910.71515 ([employer]) Reviewed by Maya Barron MD on 05/29; All test results are final unless otherwise noted. Reported Physicians [facility] Ordered by Maya Barron MD on 05/23/2020 Collected: 05/23/2020 Reported: 05/26/2020 17:09 Reported Physicians See Note None Note: Reported Physicians:Ordering: Maya AlvarengaAttending: Maya Barron Reviewed by Maya Barron MD on 05/29; All test results are final unless otherwise noted. Varicella-Zoster IgG Antibody [facility] Ordered by Maya Barron MD on 05/23/2020 Collected: 05/23/2020 Reported: 05/25/2020 17:11 VZV IgG Ser [facility] 244.10 None Note: Index Interpr etation --------- [...] Antibody Immunity Screen, ACIF.THIS TEST WAS PERFORMED AT:[facility] [id number] ME RATI,MDResponsible Observer: VARICELLA IGG Varicella-Zoster IgG Antibody [id number] 371.7000 ([facility]) NOTES See Note None Note: Patient Street Address: [address]: [facility] [place]: [place]: [address] Reviewed by Maya Barron MD on 05/26; All test results are final unless otherwise noted. Reported Physicians [facility] Ordered by Maya Barron MD on 05/23/2020 Collected: 05/23/2020 Reported: 05/25/2020 17:11 Reported Physicians See Note None Note: Reported Physicians:Ordering: Maya AlvarengaAttending: Maya Barron Reviewed by Maya Barron MD on 05/26; All test results are final unless otherwise noted. CBC [facility] Ordered by Maya Barron [...] Auto See Note (0-2) N (Normal) Note: 0.20.4V37841667348.2Responsible Ob windows server engineer: IG% IG% 100.1375 (B) Hct VFr Bld [...] results are final unless otherwise noted. TSH [facility] Ordered by Maya Barron MD on 05/23/2020 Collected: 05/23/2020 Reported: 05/23/2020 18:38 TSH SerPl DL<=0.005 mIU/L-aCnc 1.87 MicroInternationalUnitsPerMilliLiter_[Arbitrary_Con (0.35-5. 50) N (Normal) Note: Responsible Observer: TSH TSH 600 .7055 (D) Reviewed by Maya Barron MD on 05/29; All test results are final unless otherwise noted. Lead (Venous) Wh.Bld [facility] Ordered by Maya Barron MD on 05/23/2020 Collected: 05/23/2020 Reported: 05/25/2020 17:11 Lead Bld-sCnc <1 (<5) None Note: See Note 1Note 1This test was faith granados and its analytical performancecharacteristics have been determined by [employer]. It has not been cleared or approved by theA. This assay has been validated pursuant to the CLIAregulations and is used for clinical purposes.THIS TEST WAS PERFORMED AT:[facility] [address]DDBKAA MERATI,MDResponsible Observer: Lead, WB Lead, Whole Blood [id number] 911.2190 ([facility]) NOTES See Note None Note: Patient Street Address: [address]Patient City: [facility] State: [place]: [address] Reviewed by Maya Barron MD on 05/29; All test results are final unless otherwise noted. ncPN REF [facility] Ordered by Maya Barron MD on 05/23/2020 Collected: 05/23/2020 Reported: 05/27/2020 20:54 T pallidum Ab Ser Ql Aggl See Note (Nonreactive) None Note: [id number] onreactiveResponsible Observer: TP-PA Treponema pallidum Ab (TP-PA) [id number] 908.0286 ([facility]) HIV1 RNA SerPl Ql ТАТЬЯНА+probe See Note None Note: TNPNo Reportable ResultLTNPNo Repo rtable ResultLLEP.LIVENTNPResponsible Observer: HIV 1 RNA, QL T HIV 1 RNA, QL TMA [id number] 908.0254 ([facility]) HBV surface Ag SerPl Ql IA See Note (NON-REACTIVE) None Note: [id number] 0NON-REACTIVEResponsible Observer: HBSAG Hepatitis B Surface Antigen 25299959 910.2004 ([facility]) RUBV IgG SerPl IA-aCnc 1.80 None Note: Index Interpretatio n ----- <0.90 Not consistent with Immunity 0.90-0.99 Equivocal > or = 1.00 Consistent with ImmunityThe presence of rubella IgG antibody suggestsimmunization or past or current infection withrubella virus.THIS TEST WAS PERFORMED AT:[facility] [address]WSLOAE MERATI,MDResponsible Observer: Rubella IgG Ab Rubella IgG Ab [id number] 911.2840 ([facility]) HIV1 Ab SerPlBld Ql IA.rapid See Note None Note: TNPNo Reportable ResultLTNPNo Repo rtable ResultLLEP.LIVENTNPResponsible Observer: HIV 1 AB HIV 1 AB [id number] 908.0250 ([facility]) HBsAg Confirmation See Note None Note: TNPNo Reportable ResultLTNPNo Repo rtable ResultLLEP.LIVENTNPResponsible Observer: HBsAg Confirm HBsAg Confirmation [id number] .[id number] ([facility]) HIV (1&2) Screen, 4th Gen NON-REACTIVE [...] for this purpose.For additional information please refer tohttp://education.[employer]/faq/NFY924(This link is being provided for informational/educational purposes only.)The performance of this assay has not been clinicallyvalidated in patients less than 2 years old.Responsible Observer: HIV ABS HIV (1&2) Screen, 4th Gen [id number] 908.0224 ([facility]) Reviewed by Maya Barron MD on 05/29; All test results are final unless otherwise noted. Reported Physicians [facility] Ordered by Maya Barron MD on 05/23/2020 Collected: 05/23/2020 Reported: 05/27/2020 20:54 Reported Physicians See Note None Note: Reported Physicians:Ordering: Maya AlvarengaAttending: Maya Barron Reviewed by Maya Barron MD on 05/29; All test results are final unless otherwise noted. HCV RFX ТАТЬЯНА [facility] Ordered by Maya Barron MD on 05/23/2020 Collected: 05/23/2020 Reported: 05/25/2020 17:11 HCV Ab Ser Ql See Note (NON-REACTIVE) None Note: [id number] 7NON-REACTIVEResponsible Observer: HEP C ANTIBODY Hepatitis C Antibody [id number] 914.8305 ([facility]) HCV RNA Qualitative (ТАТЬЯНА) 0.59 (<1.00) None Note: HCV antibody was non-reactive. The re is no laboratoryevidence of HCV infection.In most cases, no further action is required. However,if recent HCV exposure is suspected, a test for HCV RNA(test code 55876) is suggested.For additional information please refer tohttp://education.[employer]/faq/PIK99t7(This link is being provided for informational/educational purposes only.)THIS TEST WAS PERFORMED AT:[facility] [address]KAJUANCHO MEANSMDResponsible Observer: SIG TO C/O SIGNAL TO CUTOFF [id number] 996.0121 ([facility]) NOTES See Note None Note: Patient Street Address: [facility] [address]Patient City: [facility] State: [facility] Zip Code: [address] Reviewed by Maya Barron MD on 05/26; All test results are final unless otherwise noted. Reported Physicians [facility] Ordered by Maya Barron MD on 05/23/2020 Collected: 05/23/2020 Reported: 05/25/2020 17:11 Reported Physicians See Note None Note: Reported Physicians:Ordering: Maya AlvarengaAttending: Maya Barron Reviewed by Maya Barron MD on 05/26; All test results are final unless otherwise noted. Type and Screen [facility] Ordered by Maya Barron [...] are final unless otherwise noted. Reported Physicians [facility] Ordered by Maya Barron MD on 05/23/2020 Collected: 05/23/2020 Reported: 05/23/2020 19:32 Reported Physicians See Note None Note: Reported Physicians:Ordering: Maya AlvarengaAttending: Maya Barron Reviewed by Maya Barron MD on 05/24; All test results are final unless otherwise noted. PROGESTERONE [facility] Ordered by Maya Barron [...] are final unless otherwise noted. Reported Physicians [facility] Ordered by Maya Barron MD on 04/27/2020 Collected: 04/27/2020 Reported: 04/27/2020 15:58 Reported Physicians See Note None Note: Reported Physicians:Ordering: Johnny HernándezAttending: Cristino CastellanosCopyifan To: Rubén Barron To: Cristino Castellanos Reviewed by Maya Barron MD on 04/30; All test results are final unless otherwise noted. BHCG, QUANTITATIVE [facility] Ordered by Maya Barron [...] are final unless otherwise noted. Reported Physicians [facility] Ordered by Maya Barron MD on 04/27/2020 Collected: 04/27/2020 Reported: 04/27/2020 14:40 Reported Physicians See Note None Note: Reported Physicians:Ordering: Aj Snowending: Cristino CastellanosCopyifan To: Johnny CazaresCopyifan To: Maya Barron Reviewed by Maya Barron MD on 04/30; All test results are final unless otherwise noted. CBC W AUTO DIFF [facility] Ordered by Maya Barron [...] Auto See Note (0-2) N (Normal) Note: 0.20.0S79595880162.2Responsible Ob windows server engineer: IG% IG% 100.1375 (B) Hct VFr Bld [...] are final unless otherwise noted. Reported Physicians [facility] Ordered by Maya Barron MD on 04/25/2020 Collected: 04/25/2020 Reported: 04/25/2020 22:11 Reported Physicians See Note None Note: Reported Physicians:Ordering: Cristino FerreiraAttending: Jos Rivas To: Maya Barron Reviewed by Maya Barron MD on 04/26; All test results are final unless otherwise noted. BHCG, QUANTITATIVE [facility] Ordered by Maya Barron [...] are final unless otherwise noted. Reported Physicians [facility] Ordered by Maya Barron MD on 04/25/2020 Collected: 04/25/2020 Reported: 04/25/2020 22:11 Reported Physicians See Note None Note: Reported Physicians:Ordering: Cristino FerreiraAttending: Jos Rivas To: Maya Barron Reviewed by Maya Barron MD on 04/26; All test results are final unless otherwise noted. Urine culture [facility] Ordered by Maya Barron MD on 04/25/2020 Collected: 04/25/2020 Reported: 04/27/2020 04:50 Bacteria Ur Cult See Note None Note: NGNo growth.L1NG NOTES See Note None Note: @ NICOLE DATE was changed from 04/26 to 04/25/20@ by LEONARDO. Reviewed by Maya Barron MD on 04/30; All test results are final unless otherwise noted. Reported Physicians [facility] Ordered by Maya Barron MD on 04/25/2020 Collected: 04/25/2020 Reported: 04/27/2020 04:51 Reported Physicians See Note None Note: Reported Physicians:Ordering: Aj Ferreiraending: Jos Rivas To: Maya Barron Reviewed by Maya Barron MD on 04/30; All test results are final unless otherwise noted. ADD ON MICROSCOPIC [facility] Ordered by Maya Barron MD on 04/25/2020 Collected: 04/25/2020 Reported: 04/25/2020 21:54 ADD ON MICROSCOPIC See Note (0-5) None Note: NOTES OTHER/NOT INTERPRETED Bacteria UrnS Ql Micro SMALL AMOUNT Bacteria UrnS Ql Micro SMALL AMOUNT Bacteria UrnS Ql Micro L Bacteria UrnS Ql Micro Bacteria UrnS Ql Micro Bacteria UrnS Ql Micro Bacteria UrnS Ql Micro [id number] Bacteria UrnS Ql Micro Bacteria UrnS Ql [...] are final unless otherwise noted. Reported Physicians [facility] Ordered by Maya Barron MD on 04/25/2020 Collected: 04/25/2020 Reported: 04/25/2020 21:54 Reported Physicians See Note None Note: Reported Physicians:Ordering: Cristino FerreiraAttending: Jos Rivas To: Maya Barron Reviewed by Maya Barron MD on 04/26; All test results are final unless otherwise noted. URINALYSIS [facility] Ordered by Maya Barron MD on 04/25/2020 Collected: 04/25/2020 Reported: 04/25/2020 21:54 Urobilinogen Ur Ql See Note (0.2-1 EU/dl) None Note: 0.2 EU/dl0.2 EU/[id number] E U/dlResponsible Observer: UROBILINOGEN UROBILINOGEN 300.4500 (C) RBC # Ur Strip NEGATIVE (NEGATIVE) None Note: Responsible Observer: BLOOD BLOOD 300.4650 (C) Prot Ur Ql Strip See Note (NEGATIVE) None Note: [id number] EResponsible Observer: PROTEIN PROTEIN 300.3750 (C) Ketones Ur Ql Strip See Note (NEGATIVE) None Note: [id number] EResponsible Observer: KETONE KETONE 300.3900 (C) Bilirub Ur Ql Strip.auto See Note (NEGATIVE) None Note: [id number] EResponsible Observer: BILIRUBIN BILIRUBIN 300.4550 (C) Glucose Ur Strip.auto-mCnc NEGATIVE (NEGATIVE) None Note: Responsible Observer: GLUCOSE GLUC OSE 300.3850 (C) Appearance Ur See Note (CLEAR) None Note: CLEARCLEARLCLEARResponsible Observ er: APPEARANCE APPEARANCE 300.3400 (A) Color Ur See Note None Note: YELLOWYELLOWLYELLOWResponsible Obs erver: COLOR COLOR 300.3300 (A) Leukocyte esterase Ur Ql Strip See Note (NEGATIVE) None Note: [id number]@DO MICR O!!!!Responsible Observer: LEUKOCYTES LEUKOCYTES 300.3575 (C) Nitrite Ur Ql Strip See Note (NEGATIVE) None Note: [id number] EResponsible Observer: NITRITE NITRITE 300.3650 (B) pH [...] are final unless otherwise noted. Reported Physicians [facility] Ordered by Maya Barron MD on 04/25/2020 Collected: 04/25/2020 Reported: 04/25/2020 21:54 Reported Physicians See Note None Note: Reported Physicians:Ordering: Aj Ferreiraending: Jos Rivas To: Maya Barron Reviewed by Maya Barron MD on 04/26; All test results are final unless otherwise noted. BHCG, QUANTITATIVE [facility] Ordered by Maya Barron [...] are final unless otherwise noted. Reported Physicians [facility] Ordered by Maya Barron MD on 04/18/2020 Collected: 04/18/2020 Reported: 04/18/2020 15:11 Reported Physicians See Note None Note: Reported Physicians:Ordering: Maya AlvarengaAttending: Maya Barron Reviewed by Maya Barron MD on 04/19; All test results are final unless otherwise noted. ADD ON MICROSCOPIC [facility] Ordered by Maya Barron MD on 04/16/2020 Collected: 04/16/2020 Reported: 04/16/2020 23:51 ADD ON MICROSCOPIC See Note (0-5) None Note: NOTES OTHER/NOT INTERPRETED Bacteria UrnS Ql Micro SMALL AMOUNT Bacteria UrnS Ql Micro SMALL AMOUNT Bacteria UrnS Ql Micro L Bacteria UrnS Ql Micro Bacteria UrnS Ql Micro Bacteria UrnS Ql Micro Bacteria UrnS Ql Micro [id number] Bacteria UrnS Ql Micro Bacteria UrnS Ql [...] are final unless otherwise noted. Reported Physicians [facility] Ordered by Maya Barron MD on 04/16/2020 Collected: 04/16/2020 Reported: 04/16/2020 23:52 Reported Physicians See Note None Note: Reported Physicians:Ordering: Damon , VinodAttending: Damon, VinodCopy To: Maya Barron Reviewed by Maya Barron MD on 04/17; All test results are final unless otherwise noted. UA W/ CULTURE IF ABNORMAL [facility] Ordered by Maya Barron MD on 04/16/2020 Collected: 04/16/2020 Reported: 04/16/2020 23:51 Urobilinogen Ur Ql See Note (0.2-1 EU/dl) None Note: 0.2 EU/dl0.2 EU/[id number] E U/dlResponsible Observer: UROBILINOGEN UROBILINOGEN 300.4500 (C) RBC # Ur Strip NEGATIVE (NEGATIVE) None Note: Responsible Observer: BLOOD BLOOD 300.4652 (C) Prot Ur Ql Strip See Note (NEGATIVE) None Note: [id number] EResponsible Observer: PROTEIN PROTEIN 300.3750 (C) Ketones Ur Ql Strip See Note (NEGATIVE) None Note: [id number] ble Observer: KETONE KETONE 300.3900 (C) Bilirub Ur Ql Strip.auto See Note (NEGATIVE) None Note: [id number] EResponsible Observer: BILIRUBIN BILIRUBIN 300.4550 (C) Glucose Ur Strip.auto-mCnc NEGATIVE (NEGATIVE) None Note: Responsible Observer: GLUCOSE GLUC OSE 300.3850 (C) Appearance Ur See Note (CLEAR) None Note: CLEARCLEARLCLEARResponsible Observ er: APPEARANCE APPEARANCE 300.3400 (A) Color Ur See Note None Note: YELLOWYELLOWLYELLOWResponsible Obs erver: COLOR COLOR 300.3330 (A) Leukocyte esterase Ur Ql Strip See Note (NEGATIVE) None Note: [id number] E@DO MICRO!!!!A Culture has been added to this specimen per established criteriaResponsible Observer: LEUKOCYTES LEUKOCYTES 300.3576 (C) Nitrite Ur Ql Strip See Note (NEGATIVE) None Note: [id number] EResponsible Observer: NITRITE NITRITE 300.3652 (B) pH [...] are final unless otherwise noted. Urine culture [facility] Ordered by Maya Barron MD on 04/16/2020 Collected: 04/16/2020 Reported: 04/18/2020 06:47 Urine culture result See Note None Note: Less than 10,000 CFU/MLNormal Comm ensal FloraProbable contaminants no senst done NOTES See Note None Note: @04/16/20 2351: Urine culture addchandler d. RFLXG = CULT.ADD. Reviewed by Maya Barron MD on 04/18; All test results are final unless otherwise noted. Reported Physicians [facility] Ordered by Maya Barron MD on 04/16/2020 Collected: 04/16/2020 Reported: 04/18/2020 06:47 Reported Physicians See Note None Note: Reported Physicians:Ordering: Damon , VinodAttending: Damon, VinodCopy To: Maya Barron Reviewed by Maya Barron MD on 04/18; All test results are final unless otherwise noted. CBC W AUTO DIFF [facility] Ordered by Maya Barron [...] Auto See Note (0-2) N (Normal) Note: 0.20.9L13368494311.2Responsible Ob windows server engineer: IG% IG% 100.1375 (B) Hct VFr Bld [...] [facility], QUANTITATIVE [facility] Ordered by Maya Barron [...] are final unless otherwise noted. Reported Physicians [facility] Ordered by Maya Barron [...] are final unless otherwise noted. Reported Physicians [facility] Ordered by Maya Barron MD on 04/16/2020 Collected: 04/16/2020 Reported: 04/16/2020 22:44 Reported Physicians See Note None Note: Reported Physicians:Ordering: Jose E JoseodAttending: Jose E JoseodCopy To: Maya Barron Reviewed by Maya Barron MD on 04/17; All test results are final unless otherwise noted. LIPASE [facility] Ordered by Maya Barron MD on 04/16/2020 Collected: 04/16/2020 Reported: 04/16/2020 22:44 Lipase SerPl-cCnc 107 enzyme_unit_per_liter (73-393) N (Normal) Note: Responsible Observer: Lipase Lipas e 400.2310 (G) Reviewed by Maya Barron MD on 04/17; All test results are final unless otherwise noted. Reported Physicians [facility] Ordered by Maya Barron MD on 04/16/2020 Collected: 04/16/2020 Reported: 04/16/2020 22:44 Reported Physicians See Note None Note: Reported Physicians:Ordering: Damon VinodAttending: Damon, VinodCopy To: Maya Barron Reviewed by Maya Barron MD on 04/17; All test results are final unless otherwise noted. Type and Screen [facility] Ordered by Maya Barron [...] are final unless otherwise noted. Reported Physicians [facility] Ordered by Maya Barron MD on 04/16/2020 Collected: 04/16/2020 Reported: 04/16/2020 23:09 Reported Physicians See Note None Note: Reported Physicians:Ordering: Jose E JoseodAttending: Damon, VinodCopy To: Maya Barron Reviewed by Maya Barron MD on 04/17; All test results are final unless otherwise noted. [facility] Ordered by Maya Barron MD on 04/10/2020 [address] [place], [address] Collected: 04/10/2020 Reported: 04/11/2020 11:35 tel :[phone] ext. [phone] GRAN# 1.9 /mm3 (2.5-7.5) L [...] test results are final unless otherwise noted. [facility] Ordered by Maya Barron MD on 04/10/[address] [place] [address], [address] Collected: 04/10/2020 Reported: 04/11/2020 11:35 tel : [...] Ordered by Maya Barron MD on 04/10/[address] [place] [address], [address] Collected: 04/10/2020 Reported: 04/11/2020 11:35 tel : ext. 1500 TSH 1.336 uIu/mL (0.5-5.8) None Note: Responsible Observer: AW Reviewed by Maya Barron MD on 04/12; All test results are final unless otherwise noted. -[facility] Ordered by Maya Barron MD on 02/25/2020 Collected: 02/25/2020 Reported: 02/28/2020 15:53 C trach rRNA XXX Ql ТАТЬЯНА+probe See Note (NOT DETECTED) None Note: NOT DETECTEDNOT DETECTEDLNOT DETEC TEDNOT [id number] DETECTEDResponsible Observer: C.Trach RNA Chlamydia trachomatis DNA-ТАТЬЯНА [id number] 913.9900 ([employer]) N gonorrhoea rRNA XXX Ql ТАТЬЯНА+probe See Note (NOT DETECTED) None Note: NOT DETECTEDNOT DETECTEDLNOT DETEC TEDNOT [id number] DETECTEDResponsible Observer: GC RNA Neisseria gonorrhoeae DNA -ТАТЬЯНА [id number] 913.9905 ([facility]) Chlamydia/GC DNA Note SEE NOTE None Note: The analytical performance charact eristics of thisassay, when used to test SurePath(TM) specimens have beendetermined by [employer]. The modifications havenot been cleared or approved by the FDA. This assay hasbeen validated pursuant to the CLIA regulations and isused for clinical purposes.For additional information, please refer tohttps://education.[employer]/faq/KJG860(This link is being provided for information/educational purposes only.)THIS TEST WAS PERFORMED AT:[facility] [address] [address]KAMBGRACE MEANS,MDResponsible Observer: GC/Chlam Note Chlamydia/GC DNA Note [id number] 913.9907 (A) NOTES See Note None Note: Source Of Specimen: URINE Reviewed by Maya Barron MD on 02/28; All test results are final unless otherwise noted. Reported Physicians [facility] Ordered by Maya Barron MD on 02/25/2020 Collected: 02/25/2020 Reported: 02/28/2020 15:54 Reported Physicians See Note None Note: Reported Physicians:Ordering: Maya AlvarengaAttending: Maya Barron Reviewed by Maya Barron MD on 02/28; All test results are final unless otherwise noted. Urine culture-[facility] Ordered by Maya Barron MD on 02/25/2020 Collected: 02/25/2020 Reported: 02/26/2020 13:38 Urine culture result No growth None Reviewed by Maya Barron MD on 02/27; All test results are final unless otherwise noted. Reported Physicians [facility] Ordered by Maya Barron MD on 02/25/2020 Collected: 02/25/2020 Reported: 02/26/2020 13:39 Reported Physicians See Note None Note: Reported Physicians:Ordering: Maya AlvarengaAttending: Maya Barron Reviewed by Maya Barron MD on 02/27; All test results are final unless otherwise noted. Test Office Lab Ordered by Maya Barron MD on 02/25/2020 [address] [place], [address] Specimen Source: Urine Collected: 02/25/2020 Reporte d: 02/25/2020 11:15 tel:[phone] Urine HCG neg (negative) N (Normal) Reviewed by Maya Barron MD on 02/24; All test results are final unless otherwise noted. Urinalysis w/out microscopy Office Lab Ordered by Maya Barron MD on 02/25/2020 [address] [place], [address] Specimen Source: Urine Collected: 02/25/2020 Reporte d: 02/25/2020 11:02 tel:[phone] bilirubin neg (neg) N (Normal) blood neg [...] otherwise noted. UA W/ CULTURE IF ABNORMAL [facility] Ordered by Maya Barron MD on 01/29/2020 Collected: 01/29/2020 Reported: 01/29/2020 00:22 Urobilinogen Ur Ql See Note (0.2-1 EU/dl) None Note: 1 EU/dl1 EU/dlL1 EU/dl1 EU/tpK2925 [id number] EU/dlResponsible Observer: UROBILINOGEN UROBILINOGEN 300.4500 (C) RBC # Ur Strip NEGATIVE (NEGATIVE) None Note: Responsible Observer: BLOOD BLOOD 300.4652 (C) Prot Ur Ql Strip See Note (NEGATIVE) None Note: NEGATIVENEGATIVELNEGATIVENEGATIVEL [id number] Observer: PROTEIN PROTEIN 300.3750 (C) Ketones Ur Ql Strip See Note (NEGATIVE) None Note: 15 mg/dL15 mg/dLL15 mg/dL15 mg/dLL [id number] mg/dLResponsible Observer: KETONE KETONE 300.3900 (C) Bilirub Ur Ql Strip.auto See Note (NEGATIVE) None Note: NEGATIVENEGATIVELNEGATIVENEGATIVEL [id number] Observer: BILIRUBIN BILIRUBIN 300.4550 (C) Glucose Ur Strip.auto-mCnc NEGATIVE (NEGATIVE) None Note: Responsible Observer: GLUCOSE GLUC OSE 300.3850 (C) Appearance Ur See Note (CLEAR) None Note: CLEARCLEARLCLEARCLEARLCLEARRespons ible Observer: APPEARANCE APPEARANCE 300.3400 (A) Color Ur See Note None Note: YELLOWYELLOWLYELLOWYELLOWLYELLOWRe sponsible Observer: COLOR COLOR 300.3330 (A) Leukocyte esterase Ur Ql Strip See Note (NEGATIVE) None Note: NEGATIVENEGATIVELNEGATIVENEGATIVEL [id number] Observer: LEUKOCYTES LEUKOCYTES 300.3576 (C) Nitrite Ur Ql Strip See Note (NEGATIVE) None Note: NEGATIVENEGATIVELNEGATIVENEGATIVEL [id number] Observer: NITRITE NITRITE 300.3652 (B) pH Ur [...] are final unless otherwise noted. Reported Physicians [facility] Ordered by Maya Barron MD on 01/29/2020 Collected: 01/29/2020 Reported: 01/29/2020 00:22 Reported Physicians See Note None Note: Reported Physicians:Ordering: Yoli NapolesAttending: Charles Silva To: Maya Barron Reviewed by Maya Barron MD on 01/30; All test results are final unless otherwise noted. BHCG,SERUM QUALITATIVE [facility] Ordered by Maya Barron [...] are final unless otherwise noted. Reported Physicians [facility] Ordered by Maya Barron MD on 01/28/2020 Collected: 01/28/2020 Reported: 01/28/2020 22:58 Reported Physicians See Note None Note: Reported Physicians:Ordering: Cliff Napolesending: Charles Silva To: Maya Barron Reviewed by Maya Barron MD on 01/30; All test results are final unless otherwise noted. CBC W AUTO DIFF [facility] Ordered by Maya Barron [...] Auto See Note (0-2) N (Normal) Note: [id number] ible Observer: IG% IG% 100.1375 (B) Hct [...] are final unless otherwise noted. Reported Physicians [facility] Ordered by Maya Barron MD on 01/28/2020 Collected: 01/28/2020 Reported: 01/28/2020 23:00 Reported Physicians See Note None Note: Reported Physicians:Ordering: Yoli NapolesAttending: Charles Silva To: Maya Barron Reviewed by Maya Barron MD on 01/30; All test results are final unless otherwise noted. UA W/ CULTURE IF ABNORMAL [facility] Ordered by Maya Barron MD on 12/12/2019 Collected: 12/12/2019 Reported: 12/12/2019 11:22 Urobilinogen Ur Ql See Note (0.2-1 EU/dl) None Note: 1 EU/dl1 EU/dlL1 EU/dl1 EU/lwI7141 [id number] EU/dlResponsible Observer: UROBILINOGEN UROBILINOGEN 300.4500 (C) RBC # Ur Strip NEGATIVE (NEGATIVE) None Note: Responsible Observer: BLOOD BLOOD 300.4652 (C) Prot Ur Ql Strip See Note (NEGATIVE) None Note: NEGATIVENEGATIVELNEGATIVENEGATIVEL [id number] Observer: PROTEIN PROTEIN 300.3750 (C) Ketones Ur Ql Strip See Note (NEGATIVE) None Note: 15 mg/dL15 mg/dLL15 mg/dL15 mg/dLL 597470933417 mg/dLResponsible Observer: KETONE KETONE 300.3900 (C) Bilirub Ur Ql Strip.auto See Note (NEGATIVE) None Note: NEGATIVENEGATIVELNEGATIVENEGATIVEL [id number] Observer: BILIRUBIN BILIRUBIN 300.4550 (C) Glucose Ur Strip.auto-mCnc NEGATIVE (NEGATIVE) None Note: Responsible Observer: GLUCOSE GLUC OSE 300.3850 (C) Appearance Ur See Note (CLEAR) A (Abnormal) Note: CLOUDYCLOUDYLCLOUDYCLOUDYLCLOUDYRe sponsible Observer: APPEARANCE APPEARANCE 300.3400 (A) Color Ur See Note None Note: YELLOWYELLOWLYELLOWYELLOWLYELLOWRe sponsible Observer: COLOR COLOR 300.3330 (A) Leukocyte esterase Ur Ql Strip See Note (NEGATIVE) None Note: NEGATIVENEGATIVELNEGATIVENEGATIVEL [id number] Observer: LEUKOCYTES LEUKOCYTES 300.3576 (C) Nitrite Ur Ql Strip See Note (NEGATIVE) None Note: NEGATIVENEGATIVELNEGATIVENEGATIVEL [id number] Observer: NITRITE NITRITE 300.3652 (B) pH Ur Strip 5.0 (5-8) None Note: Responsible Observer: PH PH 300.3 450 (C) Sp Gr Ur Refractometry 1.027 (1.005-1.030) None Note: Responsible Observer: SP GRAVITY U RINE SPECIFIC GRAVITY-MAN 300.3475 (C) URINE MICROSCOPIC? (CIF) NO None Note: Responsible Observer: UA URINE SHAWN ROSCOPIC PENDING 300.4665 (D) NOTES See Note None Note: Method of Collection:: Voided Reviewed by Maya Barron MD on 12/12; All test results are final unless otherwise noted. Reported Physicians [facility] Ordered by Maya Barron MD on 12/12/2019 Collected: 12/12/2019 Reported: 12/12/2019 11:23 Reported Physicians See Note None Note: Reported Physicians:Ordering: Maya AlvarengaAttending: Maya Barron Reviewed by Maya Barron MD on 12/12; All test results are final unless otherwise noted. CBC W AUTO DIFF [facility] Ordered by Maya Barron MD on 12/12/2019 Collected: 12/12/2019 Reported: 12/12/2019 10:58 MCV BldCo Auto 88.0 FemtoLiter_[SI_Volume_Units] (80-96) N (Normal) Note: Responsible Observer: MCV MCV 100 .0600 (B) RDW RBC Auto 13 percent (11-15) N (Normal) Note: Responsible Observer: RDW RDW 100 .0900 (B) Manual diff Bld NO None Note: Responsible Observer: CBC Manual D ifferential Added 100.1990 (B) PMV Bld 10.3 FemtoLiter_[SI_Volume_Units] (9.1-13.1) N (Normal) Note: Responsible Observer: MPV MPV 100 .1100 (B) Imm Granulocytes Bld Ql Auto See Note (0-2) N (Normal) Note: [id number] ible Observer: IG% IG% 100.1375 (B) Hct VFr Bld Auto 41.2 percent (37-47) N (Normal) Note: Responsible Observer: HEMATOCRIT H EMATOCRIT 100.0500 (B) MCHC BldCo-mCnc 33.7 GramsPerDeciLiter_[Mass_Concentration_Units] (33-37) N (Normal) Note: Responsible Observer: MCHC MCHC 1 00.0800 (B) Imm Granulocytes # Bld Auto 0.0 Unit (0-0.1) None Note: Responsible Observer: IG# IG# 100 .1400 (B) Monocytes/leuk NFr Bld Auto 9.8 percent (4-12) N (Normal) Note: Responsible Observer: MONO % MONO % 100.1225 (B) Hgb Bld-sCnc 13.9 GramsPerDeciLiter_[Mass_Concentration_Units] (10.7-15.4) N (Normal) Note: Responsible Observer: HGB HEMOGLOB IN 100.0400 (B) WBC # Bld Auto 3.7 ThousandsPerMicroLiter_[Number_Concentration_Units] (4.45-10 .71) L (Low) Note: Responsible Observer: WBC WHITE BL OOD [...] H# 100.1200 (B) Lymphocytes/leuk NFr Bld Auto 36.4 percent (14-46) N (Normal) Note: Responsible Observer: LYMPH % LYMP H % 100.1175 (B) Monocytes # Bld Auto 0.4 Unit (0.2-1.2) N (Normal) Note: Responsible Observer: MONO # MONO# 100.1250 (C) Neutrophils # Bld Auto 1.9 Unit (1.7-7.6) N (Normal) Note: Responsible Observer: NEUT# NEUT# 100.1150 (B) Neutrophils/leuk NFr Bld Auto 52.7 percent (41-77) N (Normal) Note: Responsible Observer: NEUT% NEUT% 100.1125 (B) Platelet # Bld Auto 231 ThousandsPerMicroLiter_[Number_Concentration_Units] (130-472 ) N (Normal) Note: Responsible Observer: PLATELET COU NT PLATELET COUNT 100.1000 (D) MCH RBC Qn Auto 29.7 P[employer]ram_[SI_Mass_Units] (27-31) N (Normal) Note: Responsible Observer: MCH MCH 100 .0700 (B) RBC # Bld Auto 4.68 MillionsPerMicroLiter_[Number_Concentration_Units] (4.20-5.4 0) N (Normal) Note: Responsible Observer: RBC Red Bloo d Count 100.0300 (B) NUCLEATED RED BLOOD CELL# 0 Unit None Note: Responsible Observer: NRBC# NUCLEA VICTOR M RBC 100.1362 (A) NUCLEATED RED BLOOD CELL 0 percent None Note: Responsible Observer: NRBC% NRBC% 100.1360 (B) Reviewed by Maya Barron MD on 12/12; All test results are final unless otherwise noted. [facility] Ordered by Maya Barron MD on 12/12/2019 Collected: 12/12/2019 Reported: 12/12/2019 11:58 ALT SerPl w P-5'-P-cCnc 18 enzyme_unit_per_liter (10-49) N (Normal) Note: Responsible Observer: SGPT/ALT SGP T/ALT 400.1750 (G) Calcium SerPl-mCnc 9.5 MilliGramsPerDeciLiter_[Mass_Concentration_Units] (8.5-10.1) N (Normal) Note: Responsible Observer: Calcium Calc ium 400.2500 (G) Bilirub SerPl-mCnc 0.8 MilliGramsPerDeciLiter_[Mass_Concentration_Units] (0.3-1.2) N (Normal) Note: Responsible Observer: T KELLIE Total Bilirubin 400.2600 (G) CO2 SerPl-sCnc 25 MilliMolesPerLiter_[Substance_Concentration_Units] (20-31) N (Normal) Note: Responsible Observer: CO2 Carbon D ioxide 400.1400 (G) Chloride SerPl-sCnc 107 MilliMolesPerLiter_[Substance_Concentration_Units] (99-109) N (Normal) Note: Responsible Observer: Chloride Chl oride 400.1250 (G) Glucose SerPl-mCnc 92 MilliGramsPerDeciLiter_[Mass_Concentration_Units] (74-106) N (Normal) Note: Responsible Observer: Glucose Gluc ose 400.1500 (G) Potassium SerPl-sCnc 3.9 MilliMolesPerLiter_[Substance_Concentration_Units] (3.5-5.5) N (Normal) Note: Responsible Observer: K Potassium 400.1210 (G) Prot SerPl-mCnc 7.4 GramsPerDeciLiter_[Mass_Concentration_Units] (5.7-8.2) N (Normal) Note: Responsible Observer: TP Total Pro tein 400.2800 (G) Sodium SerPl-sCnc 140 MilliMolesPerLiter_[Substance_Concentration_Units] (132-146) N (Normal) Note: Responsible Observer: Sodium Sodiu m 400.1100 (G) AST SerPl w P-5'-P-cCnc 13 enzyme_unit_per_liter (0-33) N (Normal) Note: Responsible Observer: SGOT / AST S GOT / AST 400.1900 (G) BUN SerPl-mCnc 9 MilliGramsPerDeciLiter_[Mass_Concentration_Units] (9-23) N (Normal) Note: Responsible Observer: BUN Blood Ur ea Nitrogen 400.1000 (G) Anion Gap SerPl-sCnc 12 MilliMolesPerLiter_[Substance_Concentration_Units] (8-16) N (Normal) Note: Responsible Observer: ANION GAP AN ION GAP 400.1402 (E) Albumin SerPl BCP-mCnc 4.2 GramsPerDeciLiter_[Mass_Concentration_Units] (3.2-4.8) N (Normal) Note: Responsible Observer: Albumin Albu min 400.2700 (G) ALP SerPl-cCnc 102 enzyme_unit_per_liter (45-129) N (Normal) Note: Responsible Observer: ALP Alkaline Phosphatase 400.2000 (G) Creatinine 0.8 MilliGramsPerDeciLiter_[Mass_Concentration_Units] (0.5-1.1) N (Normal) Note: Responsible Observer: Creatinine C reatinine 400.1600 (G) Reviewed by Maya Barron MD on 12/12; All test results are final unless otherwise noted. Reported Physicians [facility] Ordered by Maya Barron MD on 12/12/2019 Collected: 12/12/2019 Reported: 12/12/2019 11:58 Reported Physicians See Note None Note: Reported Physicians:Ordering: Maya AlvarengaAttending: Maya Barron Reviewed by Maya Barron MD on 12/12; All test results are final unless otherwise noted. Gastrointestinal Panel PCR [facility] Ordered by Maya Barron MD on 12/12/2019 Collected: 12/12/2019 Reported: 12/12/2019 14:17 GI path DNA+RNA Pnl Stl ТАТЬЯНА+non-probe See Note None Note: FilmArray Gastrointestinal panel i s a qualitativemultiplexed NAAT test - PCRFilmArray GI panel detects campylobacter,cdiff,plesiomonasshigelloides,salmonella,vibro,vibrio cholerae,yersiniaenterocolitica, diarrheagenic E coli, EAEC,EPEC,ETEC,STEC I and II, E coli 0157, shigella/enteroinvasive E.coli(EIEC),cryptosporidium,cyclospora cayetanensis,entamoebahistolytica,giardia lamblia,adenovirus F 40 /41,astrovirus,norovirus GI/GII, rotavirus A, sapovirus.NORMAL VALUE FOR ALL PATHOGENS IS "NOT DETECTED"THE FilmARRAY GASTROINTESTINAL PANEL DOES NOT DIFFERENTIATEBETWEEN VIABLE AND NONVIABLE ORGANISMSTHE PERFORMANCE OF THIS TEST HAS NOT BEEN ESTABLISHED FORPATIENTS WITHOUT SIGNS AND SYMPTOMS OF GASTROINTESTINALILLNESS.THE PERFORMANCE OF THIS TEST HAS NOT BEEN ESTABLISHED FORMONITORING TREATMENT OF INFECTION WITH ANY OF THE PANELORGANISMS.RECENT ORAL ADMINISTRATION OF A ROTAVIRUS A VACCINE MAYCAUSE POSITIVE RESULTS FOR ROTAVIRUS A IF THE VIRUS ISPASSED IN THE STOOL.RESULT FROM THIS TEST MUST BE CORRELATED WITH THE CLINICALHISTORY, EPIDEMIOLOGICAL DATA AND OTHER DATA AVAILBLE TO THECLINICIAN EVALUATING THE PATIENT. NEGATIVE RESULTS SHOULDNOT BE USED THE SOLE BASIS FOR DIAGNOSIS, TREATMENT, OROTHER MANAGEMENT DECISIONS.DUE TO HIGH RATES OF ASYMPTOMATIC CARRIAGE OF C. DIFF,ESPECIALLY IN VERY YOUNG CHILDREN AND HOSPITALIZED PATIENTS,THE DETECTION OF TOXIGENIC C. DIFF SHOULD BE INTERPRETEDWITHIN THE CONTEXT OF QUIDELINES DEVELOPED BY THE TESTINGFACILITY OR OTHER EXPERTS. (E.G. GUIDELINES/POLICYSTATEMENTS PUBLISHED BY THE [place] [employer]OR THE SOCIETY FOR HEALTHCARE EPIDEMIOLOGY OF [place] ANDTHE INFECTIOUS DISEASE SOCIETY OF [place]).CLOC. difficile toxin [id number]. difficile toxin detected Reviewed by Maya Barron MD on 12/12; All test results are final unless otherwise noted. Reported Physicians [facility] Ordered by Maya Barron MD on 12/12/2019 Collected: 12/12/2019 Reported: 12/12/2019 14:17 Reported Physicians See Note None Note: Reported Physicians:Ordering: Maya AlvarengaAttending: Maya Barron Reviewed by Maya Barron MD on 12/12; All test results are final unless otherwise noted. CBC W AUTO DIFF [facility] Ordered by Maya Barron MD on 12/07/2019 Collected: 12/07/2019 Reported: 12/07/2019 16:59 MCV BldCo Auto 88.3 FemtoLiter_[SI_Volume_Units] (80-96) N (Normal) Note: Responsible Observer: MCV MCV 100 .0600 (B) RDW RBC Auto 13 percent (11-15) N (Normal) Note: Responsible Observer: RDW RDW 100 .0900 (B) Manual diff Bld NO None Note: Responsible Observer: CBC Manual D ifferential Added 100.1990 (B) PMV Bld 10.4 FemtoLiter_[SI_Volume_Units] (9.1-13.1) N (Normal) Note: Responsible Observer: MPV MPV 100 .1100 (B) Imm Granulocytes Bld Ql Auto See Note (0-2) N (Normal) Note: [id number] ible Observer: IG% IG% 100.1375 (B) Hct VFr Bld Auto 40.8 percent (37-47) N (Normal) Note: Responsible Observer: HEMATOCRIT H EMATOCRIT 100.0500 (B) MCHC BldCo-mCnc 33.1 GramsPerDeciLiter_[Mass_Concentration_Units] (33-37) N (Normal) Note: Responsible Observer: MCHC MCHC 1 00.0800 (B) Imm Granulocytes # Bld Auto 0.0 Unit (0-0.1) None Note: Responsible Observer: IG# IG# 100 .1400 (B) Monocytes/leuk NFr Bld Auto 10.4 percent (4-12) N (Normal) Note: Responsible Observer: MONO % MONO % 100.1225 (B) Hgb Bld-sCnc 13.5 GramsPerDeciLiter_[Mass_Concentration_Units] (10.7-15.4) N (Normal) Note: Responsible Observer: HGB HEMOGLOB IN 100.0400 (B) WBC # Bld Auto 4.4 ThousandsPerMicroLiter_[Number_Concentration_Units] (4.45-10 .71) L (Low) Note: Responsible Observer: WBC WHITE BL OOD [...] H# 100.1200 (B) Lymphocytes/leuk NFr Bld Auto 48.8 percent (14-46) H (High) Note: Responsible Observer: LYMPH % LYMP H % 100.1175 (B) Monocytes # Bld Auto 0.5 Unit (0.2-1.2) N (Normal) Note: Responsible Observer: MONO # MONO# 100.1250 (C) Neutrophils # Bld Auto 1.7 Unit (1.7-7.6) N (Normal) Note: Responsible Observer: NEUT# NEUT# 100.1150 (B) Neutrophils/leuk NFr Bld Auto 38.7 percent (41-77) L (Low) Note: Responsible Observer: NEUT% NEUT% 100.1125 (B) Platelet # Bld Auto 227 ThousandsPerMicroLiter_[Number_Concentration_Units] (130-472 ) N (Normal) Note: Responsible Observer: PLATELET COU NT PLATELET COUNT 100.1000 (D) MCH RBC Qn Auto 29.2 PicoGram_[SI_Mass_Units] (27-31) N (Normal) Note: Responsible Observer: MCH MCH 100 .0700 (B) RBC # Bld Auto 4.62 MillionsPerMicroLiter_[Number_Concentration_Units] (4.20-5.4 0) N (Normal) Note: Responsible Observer: RBC Red Bloo d Count 100.0300 (B) NUCLEATED RED BLOOD CELL# 0 Unit None Note: Responsible Observer: NRBC# NUCLEA VICTOR M RBC 100.1362 (A) NUCLEATED RED BLOOD CELL 0 percent None Note: Responsible Observer: NRBC% NRBC% 100.1360 (B) Reviewed by Maya Barron MD on 12/09; All test results are final unless otherwise noted. [facility] Ordered by Maya Barron MD on 12/07/2019 Collected: 12/07/2019 Reported: 12/07/2019 17:15 ALT SerPl w P-5'-P-cCnc 22 enzyme_unit_per_liter (10-49) N (Normal) Note: Responsible Observer: SGPT/ALT SGP T/ALT 400.1750 (G) Calcium SerPl-mCnc 9.1 MilliGramsPerDeciLiter_[Mass_Concentration_Units] (8.5-10.1) N (Normal) Note: Responsible Observer: [...] m 400.1100 (G) AST SerPl w P-5'-P-cCnc 12 enzyme_unit_per_liter (0-33) N (Normal) Note: Responsible Observer: SGOT / AST S GOT / AST 400.1900 (G) BUN SerPl-mCnc 9 MilliGramsPerDeciLiter_[Mass_Concentration_Units] (9-23) N (Normal) Note: Responsible Observer: BUN Blood Ur ea Nitrogen 400.1000 (G) Anion Gap SerPl-sCnc 10 MilliMolesPerLiter_[Substance_Concentration_Units] (8-16) N (Normal) Note: Responsible Observer: ANION GAP AN ION GAP 400.1402 (E) Albumin SerPl BCP-mCnc 4.3 GramsPerDeciLiter_[Mass_Concentration_Units] (3.2-4.8) N (Normal) Note: Responsible Observer: Albumin [place]bu min 400.2700 (G) ALP SerPl-cCnc 94 enzyme_unit_per_liter (45-129) N (Normal) Note: Responsible Observer: ALP Alkaline Phosphatase 400.2000 (G) Creatinine 0.9 MilliGramsPerDeciLiter_[Mass_Concentration_Units] (0.5-1.1) N (Normal) Note: Responsible Observer: Creatinine C reatinine 400.1600 (G) Reviewed by Maya Barron MD on 12/09; All test results are final unless otherwise noted. Prothrombin Time & INR [facility] Ordered by Maya Barron MD on 12/07/2019 Collected: 12/07/2019 Reported: 12/07/2019 17:21 INR 1.1 (0.9-1.1) N (Normal) Note: THE INR IS OPERATIONALLY DEFINED F OR FRESH PLASMA FROMPATIENTS STABILIZED ON ORAL ANTICOAGULANTS.ROUTINE ANTICOAGULANT THERAPY 2.0-3.0RECURRENT SYSTEMIC EMBOLISM/HEART VALVE REPLACEMENT 2.5-3.5Responsible Observer: INR INR 200.0400 (A) Prothrombin Time (Patient) 11.1 second (9.6-12.3) N (Normal) Note: Responsible Observer: PT Prothromb in Time 200.0300 (A) Reviewed by Maya Barron MD on 12/09; All test results are final unless otherwise noted. Reported Physicians [facility] Ordered by Maya Barron MD on 12/07/2019 Collected: 12/07/2019 Reported: 12/07/2019 17:21 Reported Physicians See Note None Note: Reported Physicians:Ordering: Aj Snowending: Jos Castellanos To: Maya Barron Reviewed by Maya Barron MD on 12/09; All test results are final unless otherwise noted. Urinalysis w/out microscopy Office Lab Ordered by Maya Barron MD on 11/22/2019 [address] [place], [address] Specimen Source: Urine Collected: 11/22/2019 Reporte d: 11/22/2019 15:28 tel: bilirubin neg (neg) N (Normal) blood neg (neg) N (Normal) glucose neg (neg) N (Normal) ketone large (neg) A (Abnormal) leukocytes neg (neg) N (Normal) nitrites neg (neg) N (Normal) pH 5.0 (5.0-8.5) N (Normal) protein neg (neg-trace) N (Normal) specific gravity 1.025 (1.005-1.025) N (Normal) urobilinogen .2 (.2-1) N (Normal) Reviewed by Maya Barron MD on 11/21; All test results are final unless otherwise noted. TROPONIN [facility] Ordered by Maya Barron MD on 11/19/2019 Collected: 11/19/2019 Reported: 11/19/2019 10:30 Troponin I SerPl-mCnc Less Than 0.015 (0.00-0.09) N (Normal) Note: Less than 0.09 NG/ML Negative 0.10 - 0.77 NG/ML High Risk0.78 NG/ML or Greater PositiveThe WHO defined the cutoff (definition for diagnosis of ME)for this method as 0.78 ng/ml.Responsible Observer: Troponin I Troponin I 600.1101 (G) Reviewed by Maya Barron MD on 11/18; All test results are final unless otherwise noted. Reported Physicians [facility] Ordered by Maya Barron MD on 11/19/2019 Collected: 11/19/2019 Reported: 11/19/2019 10:30 Reported Physicians See Note None Note: Reported Physicians:Ordering: Beto Del CidAttending: Vandana Burrows To: Maya Barron Reviewed by Maya Barron MD on 11/18; All test results are final unless otherwise noted. CBC W AUTO DIFF [facility] Ordered by Maya Barron MD on 11/19/2019 Collected: 11/19/2019 Reported: 11/19/2019 09:36 MCV BldCo Auto 86.9 FemtoLiter_[SI_Volume_Units] (80-96) N (Normal) Note: Responsible Observer: [...] Auto See Note (0-2) N (Normal) Note: [id number] ible Observer: IG% IG% 100.1375 (B) Hct VFr Bld Auto 43.1 percent (37-47) N (Normal) Note: Responsible Observer: HEMATOCRIT H EMATOCRIT 100.0500 (B) MCHC BldCo-mCnc 33.9 GramsPerDeciLiter_[Mass_Concentration_Units] (33-37) N (Normal) Note: Responsible Observer: MCHC MCHC 1 00.0800 (B) Imm Granulocytes # Bld Auto 0.0 Unit (0-0.1) None Note: Responsible Observer: IG# IG# 100 .1400 (B) Monocytes/leuk NFr Bld Auto 8.1 percent (4-12) N (Normal) Note: Responsible Observer: MONO % MONO % 100.1225 (B) Hgb Bld-sCnc 14.6 GramsPerDeciLiter_[Mass_Concentration_Units] (10.7-15.4) N (Normal) Note: Responsible Observer: HGB HEMOGLOB IN 100.0400 (B) WBC # Bld Auto 3.2 ThousandsPerMicroLiter_[Number_Concentration_Units] (4.45-10 .71) L (Low) Note: Responsible Observer: WBC WHITE BL OOD COUNT 100.0100 (E) Basophils # Bld Auto 0.0 Unit (0.0-0.2) N (Normal) Note: Responsible Observer: BASO # BASO# 100.1350 (B) Basophils/leuk NFr Bld Auto 0.6 percent (0.4-1.3) N (Normal) Note: Responsible Observer: [...] H# 100.1200 (B) Lymphocytes/leuk NFr Bld Auto 39.1 percent (14-46) N (Normal) Note: Responsible Observer: LYMPH % LYMP H % 100.1175 (B) Monocytes # Bld Auto 0.3 Unit (0.2-1.2) N (Normal) Note: Responsible Observer: MONO # MONO# 100.1250 (C) Neutrophils # Bld Auto 1.7 Unit (1.7-7.6) N (Normal) Note: Responsible Observer: NEUT# NEUT# 100.1150 (B) Neutrophils/leuk NFr Bld Auto 51.9 percent (41-77) N (Normal) Note: Responsible Observer: NEUT% NEUT% 100.1125 (B) Platelet # Bld Auto 251 ThousandsPerMicroLiter_[Number_Concentration_Units] (130-472 ) N (Normal) Note: Responsible Observer: PLATELET COU NT PLATELET COUNT 100.1000 (D) MCH RBC Qn Auto 29.4 PicoGram_[SI_Mass_Units] (27-31) N (Normal) Note: Responsible Observer: MCH MCH 100 .0700 (B) RBC # Bld Auto 4.96 MillionsPerMicroLiter_[Number_Concentration_Units] (4.20-5.4 0) N (Normal) Note: Responsible Observer: RBC Red Bloo d Count 100.0300 (B) NUCLEATED RED BLOOD CELL# 0 Unit None Note: Responsible Observer: NRBC# NUCLEA VICTOR M RBC 100.1362 (A) NUCLEATED RED BLOOD CELL 0 percent None Note: Responsible Observer: NRBC% NRBC% 100.1360 (B) Reviewed by Maya Barron MD on 11/18; All test results are final unless otherwise noted. BHCG,SERUM QUALITATIVE [facility] Ordered by Maya Barron MD on 11/19/2019 Collected: 11/19/2019 Reported: 11/19/2019 09:58 HCG SerPl-sCnc NEGATIVE (NEGATIVE) None Note: @Reenter manual test result: NEG@b y Tariq Henry at 11/19/19 0958.Responsible Observer: BHCG SERUM BHCG SERUM 800.0900 (A) NOTES See Note None Note: @ DID THE CONTROL BAND APPEAR? Y@ DID THE BACKGROUND CLEAR? Y Reviewed by Maya Barron MD on 11/18; All test results are final unless otherwise noted. CMP [facility] Ordered by Maya Barron MD on 11/19/2019 Collected: 11/19/2019 Reported: 11/19/2019 10:07 ALT SerPl w P-5'-P-cCnc 30 enzyme_unit_per_liter (10-49) N (Normal) Note: Responsible Observer: SGPT/ALT SGP T/ALT 400.1750 (G) Calcium SerPl-mCnc 9.7 MilliGramsPerDeciLiter_[Mass_Concentration_Units] (8.5-10.1) N (Normal) Note: Responsible Observer: Calcium Calc ium 400.2500 (G) Bilirub SerPl-mCnc 0.8 MilliGramsPerDeciLiter_[Mass_Concentration_Units] (0.3-1.2) N (Normal) Note: Responsible Observer: [...] Observer: K Potassium 400.1210 (G) Prot SerPl-mCnc 8.0 GramsPerDeciLiter_[Mass_Concentration_Units] (5.7-8.2) N (Normal) Note: Responsible Observer: TP Total Pro tein 400.2800 (G) Sodium SerPl-sCnc 139 MilliMolesPerLiter_[Substance_Concentration_Units] (132-146) N (Normal) Note: Responsible Observer: Sodium Sodiu m 400.1100 (G) AST SerPl w P-5'-P-cCnc 17 enzyme_unit_per_liter (0-33) N (Normal) Note: Responsible Observer: SGOT / AST S GOT / AST 400.1900 (G) BUN SerPl-mCnc 12 MilliGramsPerDeciLiter_[Mass_Concentration_Units] (9-23) N (Normal) Note: Responsible Observer: BUN Blood Ur ea Nitrogen 400.1000 (G) Anion Gap SerPl-sCnc 12 MilliMolesPerLiter_[Substance_Concentration_Units] (8-16) N (Normal) Note: Responsible Observer: ANION GAP AN ION GAP 400.1402 (E) Albumin SerPl BCP-mCnc 4.4 GramsPerDeciLiter_[Mass_Concentration_Units] (3.2-4.8) N (Normal) Note: Responsible Observer: Albumin Albu min 400.2700 (G) ALP SerPl-cCnc 107 enzyme_unit_per_liter (45-129) N (Normal) Note: Responsible Observer: ALP Alkaline Phosphatase 400.2000 (G) Creatinine 0.9 MilliGramsPerDeciLiter_[Mass_Concentration_Units] (0.5-1.1) N (Normal) Note: Responsible Observer: Creatinine C reatinine 400.1600 (G) Reviewed by Maya Barron MD on 11/18; All test results are final unless otherwise noted. Reported Physicians [facility] Ordered by Maya Barron MD on 11/19/2019 Collected: 11/19/2019 Reported: 11/19/2019 10:08 Reported Physicians See Note None Note: Reported Physicians:Ordering: Oscar Del Cidending: Vandana Burrows To: Maya Barron Reviewed by Maya Barron MD on 11/18; All test results are final unless otherwise noted. CBC [facility] Ordered by Maya Barron MD on 11/15/2019 [address] [place], [address] Collected: 11/15/2019 Reported: 11/16/2019 13:40 tel : ext. 1500 GRAN# 2.2 /mm3 (2.5-7.5) L (Low) Note: Responsible Observer: KM GRAN% 46.3 % (50.0-75.0) L (Low) Note: Responsible Observer: KM HCT 44.6 % (37-47) None Note: Responsible Observer: KM HGB 14.2 g/dl (12.0-17.4) None Note: Responsible Observer: KM LY# 2.1 /mm3 (1.3-4.0) None Note: Responsible Observer: KM LY% 44.9 % (25-40.0) H (High) Note: Responsible Observer: KM MCH 27.8 pg (27.0-34.0) None Note: Responsible Observer: KM MCHC 31.9 G/DL (30.0-35.0) None Note: Responsible Observer: KM MCV 87.1 um3 (76.0-94.0) None Note: Responsible Observer: KM MID# 0.4 /mm3 (0.1-0.7) None Note: Responsible Observer: KM MID% 8.8 % (3.0-7.0) H (High) Note: Responsible Observer: KM MPV 10.0 um3 (8.0-15.0) None Note: Responsible Observer: KM PLT 268 /mm3 (150-440) None Note: Responsible Observer: KM RBC 5.12 /mm3 (4.00-5.50) None Note: Responsible Observer: KM RDW 16.2 % (13.0-15.0) H (High) Note: Responsible Observer: KM WBC 4.8 /mm3 (4.0-10.0) None Note: Responsible Observer: KM Reviewed by Maya Barron MD on 11/15; All test results are final unless otherwise noted. CMP [facility] Ordered by Maya Barron MD on 11/15/2019 [address] [place], [address] Collected: 11/15/2019 Reported: 11/16/2019 13:40 tel : ext. 1500 Albumin 5.1 g/dl (3.4-5.0) H (High) Note: Responsible Observer: KM Alkaline Phos 99 IU/L (39-117) None Note: Responsible Observer: KM ALT 18 IU/L (4-40) None Note: Responsible Observer: KM AST 19 IU/L (4-37) None Note: Responsible Observer: KM Urea Nitrogen 11 mg/dl (6-20) None Note: Responsible Observer: KM Calcium 10.1 mg/dl (8.4-10.2) None Note: Responsible Observer: KM Chloride 104 mmol/L (96-108) None Note: Responsible Observer: KM CO2 25 mmol/L (23-31) None Note: Responsible Observer: KM Creatinine 0.5 mg/dl (0.5-1.2) None Note: Responsible Observer: KM EGFR - AfricanAm > 60 N/A (-) None Note: Responsible Observer: KM EGFR - Non AF AM > 60 N/A (-) None Note: Responsible Observer: KM Glucose 94 mg/dl (70-105) None Note: Responsible Observer: KM Potassium 4 mmol/L (3.2-5.4) None Note: Responsible Observer: KM Sodium 139 mmol/L (133-145) None Note: Responsible Observer: KM Total Bilirubin 0.6 mg/dl (0.0-1.2) None Note: Responsible Observer: KM Total Protein 6.9 g/dl (6.0-8.0) None Note: Responsible Observer: KM Reviewed by Maya Barron MD on 11/15; All test results are final unless otherwise noted. TSH [facility] Ordered by Maya Barron MD on 11/15/2019 [address] [place], [address] Collected: 11/15/2019 Reported: 11/16/2019 13:40 tel :[phone] ext. 1500 TSH 2.257 uIu/mL (0.5-5.8) None Note: Responsible Observer: AW Reviewed by Maya Barron MD on 11/15; All test results are final unless otherwise noted. BHCG, QUANTITATIVE [facility] Ordered by Maya Barron MD on 11/15/2019 Collected: 11/15/2019 Reported: 11/15/2019 15:27 B-HCG SerPl-aCnc Less Than 1 (0-10) N (Normal) Note: @Report as less than lower limitAP PROXIMATE GESTATION AGE APRROXIMATE HCG RANGE 0-1 WEEK 0 - 50 1-2 WEEKS 40 - 300 2-3 WEEKS 100 - 1,000 3- 4 WEEKS 500 - 6,000 1-2 MONTHS 5,000 - 200,000 2-3 MONTHS 10,000 - 100,000 2ND TRIMESTER 3,000 - 50,000 3RD TRIMESTER 1,000 - 50,000Responsible Observer: BHCG,QUANT BHCG, QUANTITATIVE 600.5006 (G) Reviewed by Maya Barron MD on 11/14; All test results are final unless otherwise noted. Reported Physicians [facility] Ordered by Maya Barron MD on 11/15/2019 Collected: 11/15/2019 Reported: 11/15/2019 15:27 Reported Physicians See Note None Note: Reported Physicians:Ordering: Maya AlvarengaAttending: Maya Barron Reviewed by Maya Barron MD on 11/14; All test results are final unless otherwise noted. Urinalysis w/out microscopy Office Lab Ordered by Maya Barron MD on [address] [place] [address], [phone] Specimen Source: Urine Collected: Reported: 2020 11:41 tel:[phone] bilirubin NEGATIVE (neg) N (Normal) blood NEGATIVE [...] Ordered by Maya Barron MD on 12/27/2019 [address] [place], [address] Specimen Source: Urine Collected: Reported: 2019 13:46 [...] Procedures and Surgical History Includes: Procedures from 11/04/2019 through 11/03/2020 Procedures Code Diagnosis Performing Provider Service Location Service Date REVISIT- office visit KAYLEIGH 18 weeks gestatio n of Maya Barron MD [facility], [facility] 10/31/2020 REVISIT- office visit KAYLEIGH 17 weeks gestatio n of Maya Barron MD [facility], [facility] 10/24/2020 REVISIT- office visit KAYLEIGH 16 weeks gestatio n of Maya Barron MD [facility], [facility] 10/17/2020 Holter Monitor, Physician review & interpretation only 41651 Palpitations Michel Villalba MD [facility] Out[facility] 10/11/2020 REVISIT- office visit KAYLEIGH 15 weeks gestatio n of Myaa Barron MD [facility], [facility] 10/11/2020 REVISIT- office visit KAYLEIGH 13 weeks gestatio n of Maya Barron MD [facility], [facility] 09/27/2020 REVISIT- office visit KAYLEIGH 12 weeks gestatio n of Maya Barron MD [facility], [facility] 09/19/2020 EKG- Electrocardiogram/12 lead 24903 Chest pain, unspe cified Cat Huston [facility], [facility] 09/11/2020 REVISIT- office visit [facility]IGH 10 weeks [facility] 09/05/2020 REVISIT- office visit KAYLEIGH 8 weeks gestation of Maya Barron MD [facility], [facility] 08/22/2020 Urinalysis w/o Microscopy (Distinct Seperate service-same da y) 43218 Frequency of micturition- Urinary Frequency Maya Barron MD [facility], [facility] 08/15/2020 RAPID STREP 35846 Acute pharyngitis, unspecified Maya Barron MD [facility], [facility] 08/15/2020 Initial Obstetrical Care Office Visit OB Le ss than 8 weeks gestation of Cat Huston [facility], [facility] 021 Urinalysis w/o Microscopy 60808 Frequency of micturiti on- Urinary Frequency Maya Barron MD [facility], [facility] 07/19/2020 REVISIT- office visit KAYLEIGH Threatened Alicja Barron MD [facility], [facility] 05/26/2020 NO CHARGE- Nurse visit- OB establish [employer] Thr eatened , state, incidental Maya Barron MD [facility], [facility] 020 General Health Panel( CMP, CBC, TSH) 10742 Dysmenorrhe a, unspecified Maya Barron MD [facility], [facility] 04/10/2020 Brief Emotional Behavior Assessment ( add -59 mod) 38507 Screening for Mental Health/Behavioral Disorder, Unspecified Maya Barron MD [facility], [facility] 04/10/2020 Venipuncture (routine) 50925 Dysmenorrhea, unspecified Mariela Barron MD [facility], [facility] 04/10/2020 Urine Test 84210 Pelvic and perineal pain, Frequency of micturition- Urinary Frequency Maya Barron MD [facility], [facility] 02/25/2020 Urinalysis w/o Microscopy 49145 Frequency of micturiti on- Urinary Frequency Maya Barron MD [facility], [facility] 02/25/2020 Urine Test 93946 Amenorrhea, unspecified Maya Barron MD [facility], [facility] 12/27/2019 Urinalysis w/o Microscopy 23276 Right upper quadrant pain Trinity Barron MD [facility], [facility] 11/22/2019 General Health Panel( CMP, CBC, TSH) 72415 Other fatigue Alicja Barron MD [facility], [facility] 11/15/2019 Venipuncture (routine) 65627 Other fatigue Maya Barron MD [facility], [facility] 11/15/2019 Surgical History Last Updated No surgical / [...] 12:00AM Act laya Encounters Includes: Encounters from 11/04/2019 through 11/03/2020 Encounter Provider Location Date Check-In Time Check-Out Time D iagnosis OB- ILL VISIT Maya Barron MD [facility], [facility] 11/03/2020 3:45PM 4:29PM Chronic Care Mgt - Office Visit Maya Barron MD [facility], [facility] 11/03/2020 2:37PM 3:38PM Chronic Care Mgt - Office Visit Maya Barron MD [facility], [facility] 10/31/2020 3:23PM 3:24PM Fracture of Fift h Cervical Vertebral Body, History of Psychiatric Disorders, Reactive Airway Disease REVISIT- Routine (OB) Visit Maya Barron MD [facility], [facility] 10/31/2020 9:54AM 10:24AM Chronic Care Mgt - Office Visit Maya Barron MD [facility], [facility] 10/24/2020 2:16PM 11:59PM REVISIT- Routine (OB) Visit Maya Barron MD [facility], [facility] 10/24/2020 10:00AM 10:47AM REVISIT- Routine (OB) Visit Maya Barron MD [facility], [facility] 10/17/2020 11:24AM 12:12PM Chronic Care Mgt - Office Visit Maya Barron MD [facility], [facility] 10/17/2020 11:25AM 12:11PM Fracture of Fift h Cervical Vertebral Body, History of Psychiatric Disorders, Reactive Airway Disease REVISIT- Routine (OB) Visit Maya Barron MD [facility], [facility] 10/11/2020 9:44AM 10:15AM OB- ILL VISIT Maya Barron MD [facility], [facility] 10/04/2020 2:12PM 2:31PM Presyncope Syndrome, Tachyca rdia, Palpitations, Difficulty Breathing (Dyspnea), Weeks of Gestation - 14 REVISIT- Routine (OB) Visit Maya Barron MD [facility], [facility] 09/27/2020 1:36PM 1:59PM telephone conversation Michel Villalba MD 09/19/2020 9:43PM 09/19/2020 11:59PM Atypical Chest Pain REVISIT- Routine (OB) Visit Maya Barron MD [facility], [facility] 09/19/2020 9:48AM 10:14AM REVISIT- Routine (OB) Visit Cat Gutierrez [facility], [facility] 09/11/2020 3:22PM 4:16PM REVISIT- Routine (OB) Visit Cat Gutierrez [facility], [facility] 09/05/2020 9:37AM 10:00AM TCMNV phone call- NO CHARGE Cat Gutierrez [facility] 09/04/2020 09/05/2020 4:54PM 09/05/2020 11:59PM [Patient Encounter] Cat Gutierrez [facility] 08/31/2020 021 2:21PM 08/22/2020 11:59PM telephone conversation Michel Villalba MD 08/2808/22/2020 11:00AM 08/22/2020 11:59PM REVISIT- Routine (OB) Visit Maya Barron MD [facility] 08/22/2020 1:56PM 2:19PM sick visit Maya Barron MD [facility] 0 08/15/2020 9:36AM 10:12AM Upper Respiratory Infection Acute, Pollakiuria Obstetrics/ first visit [facility] 08/09/2020 9:22AM 10:56AM followup Cat Gutierrez [facility] 0 08/02/2020 10:18AM 11:42AM Generalized Anxiety Disorder , Early Stage, Abdominal Pain telephone conversation Michel Villalba MD 07/26/2020 7:59AM 07/26/2020 11:59PM [Patient Encounter] Cat Huston Brenda [facility] 07/28/2020 021 2:20PM 07/26/2020 11:59PM followup Maya Barron MD [facility] 0 07/26/2020 10:39AM 11:02AM , Generalized Anxie ty Disorder sick visit Bandar Cleveland PA-C [facility] 3:36PM 4:30PM Pyrexia followup Maya Barron MD [facility] 0 07/19/2020 10:52AM 11:30AM , Generalized Anxie ty Disorder, Pollakiuria followup Maya Barron MD [facility] 1 09/11/2019 10:43AM 11:14AM Atypical Chest Pain, Adjustm ent Disorder followup Maya Barron MD [facility] 1 08/07/2019 10:43AM 10:59AM Missed followup Maya Barron MD [facility] 05/26 1:45PM 2:11PM with Threatened Problem visit - not contagious Maya Barron MD [facility] 05/24/2020 11:13AM 12:00PM with T hreatened [Patient Encounter] Maya Barron MD 05/24/2020 020 10:17AM 04/19/2020 11:59PM followup Maya Barron MD [facility] 1 11:51AM 12:08PM ANNUAL PE-followup Maya Barron MD [facility] 04/10/2020 8:42AM 9:13AM Routine History and Physical Adult (18 - 64 Yrs), Dysmenorrhea sick visit Maya Barron MD [facility] 0 03/06/2020 3:32PM 3:42PM Sinusitis sick visit Maya Barron MD [facility] 0 02/25/2020 10:46AM 11:12AM Pollakiuria, Female Pelvic P ain followup Maya Barron MD [facility] 01/31 2:25PM 2:51PM Back Strain followup Maya Barron MD [facility] 12/26 1:25PM 1:42PM Amenorrhea, Clostridium Difficile sick visit Maya Barron MD [facility] 0 12/07/2019 4:00PM 4:17PM Abdominal Pain sick visit Maya Barron MD [facility] 0 11/22/2019 3:13PM 3:37PM Esophageal Reflux, Abdominal Pain, Generalized Anxiety Disorder sick visit Maya Barron MD [facility] 0 11/15/2019 12:50PM 1:20PM Fatigue, Nausea, Presyncope Syndrome, Generalized Anxiety Disorder sick visit Cat Gutierrez [facility] 0 11/05/2019 11:30AM 11:49AM Atopic Dermatitis Insurance Includes: Active Insurance Policies Plan Name Member ID Group # Subscriber Relationship Effective Da greg 1 - MANAGED MEDICAID [facility] [id number] Georgiana Prajapati Pickard Self 2020 - Unknown Advance Directives Includes: Current Advance DirectivesNo Advance Directives Recorded Health Concerns Includes: Active Health ConcernsNo Active Health Concerns Recorded Goals Includes: Active GoalsNo Active Goals Recorded Interventions Includes: Interventions for active GoalsNo Interventions Recorded Evaluations & Outcomes Includes: Evaluations & Outcomes for active GoalsNo Outcomes Recorded
--- OUTSIDE RECORDS SUMMARY | 2021-04-29 16:57 | CCD ---
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 Name Role Phone Anderson GILL, Maya Duke PP [phone] Kimberly White DPM Unavailable Unavailable Reason for [...] Time Location Provider REVISIT- Routine (OB) [facility]- [facility] 12/19/2020 10:00AM [facility] SOLE Chopra MD REVISIT- Routine (OB) Visit [facility]) Visit 01/02/2021 10:00AM [facility] SOLE Chopra MD REVISIT- Routine (OB) Visit 01/09/2021 10:00AM [facility], SOLE Barron MD REVISIT- Routine (OB) Visit 01/16/2021 10:00AM [facility], SOEL Barron MD REVISIT- Routine (OB) Visit 01/23/2021 10:00AM [facility], SOLE Barron MD REVISIT- Routine (OB) Visit 01/30/2021 10:00AM [facility], SOLE Barron MD REVISIT- Routine (OB) Visit 02/06/2021 10:00AM [facility], SOLE Barron MD REVISIT- Routine (OB) Visit 02/13/2021 10:00AM [facility], SOLE Barron MD REVISIT- Routine (OB) Visit 02/20/2021 11:45AM [facility], SOLE Barron MD REVISIT- Routine (OB) Visit 02/27/2021 10:00AM [facility], SOLE Barron MD REVISIT- Routine (OB) Visit 03/06/2021 10:00AM [facility], SOLE Barron MD REVISIT- Routine (OB) Visit 03/13/2021 10:00AM [facility], SOLE Barron MD REVISIT- Routine (OB) Visit 03/20/2021 10:00AM [facility], SOLE Barron MD REVISIT- Routine (OB) Visit 03/27/2021 10:00AM [facility], SOLE Barron MD Findings Encounter Date [...] provided today. 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 [Encounter for general adult medical examination with abnormal findings] ANNUAL PE-followup exam/ with Maya Barron MD 04/07/2019 [facility] Pharyngitis urgent visit with Bandar Cleveland PA-C 2018 Sprained ribs ; left sick visit with Cat Gutierrez RPA Strain of muscle and tendon of front wall of thorax si ck visit with [facility] 10/30/2018 Fracture of fifth cervical vertebral body No Fault with W[facility] 03/04/2018 Late effects of accident No Fault with [facility] 0 03/04/2018 Instructions Instructions not supported for this document typeNo Instructions Recorded Medical Equipment - Implanted Devices Includes: Current and historical DevicesNo Medical Equipment Recorded Medications Includes: Current and historical Medications Current Medications (continue as prescribed) Lidocaine 5% External Patch 12/01/2020 Provider: Maya Barron MD Diagnosis: Chest pain, unspecif ied as directed apply up to three patches da cailin on 12hrs, off 12hrs to affected area on chest metroNIDAZOLE 0.75% Vaginal Gel 12/01/2020 - 12/06/2020 Prov ider: Maya Barron MD Diagnosis: as directed One applicatorful (~37.5 mg metronidazole) intravaginally once daily for 5 days. Wellbutrin XL 150 MG Oral Tablet Extended Release 24 Hour Provider: Maya Barron MD Diagnosis: 1 PO QD HM Vitamin D3 50 MCG (1999 UT) [...] Provider : Diagnosis: Past Medications on file Ventolin HFA 108 (90 Base) MCG/ACT Inhalation [...] Recorded Vital Signs Includes: Vital Signs from 12/06/2019 through 12/05/2020 Vital Name 12/05/2020 11:47A 11/28/2020 01:44P 11/21/2020 11:41A 11/14/2020 10:01A 11/07/2020 11:52A Blood Pressure Sitting R 92/60 100/60 BP Cuff Size Regular Regular Regular Regular Regular Pulse Rate-Sitting (bpm) 80 88 76 72 80 Respiration Rate (breaths/min) 20 20 20 20 20 Weight (lb) 126 123 122 121 121 Blood Pressure Sitting L 100/62 100/60 92/54 Vital Name 11/03/2020 04:01P 10/31/2020 10:02A 10/24/2020 10:12A 10/17/2020 11:34A 10/11/2020 09:56A Blood Pressure Sitting R 100/60 BP Cuff Size Regular Regular Regular Regular Regular Pulse Rate-Sitting (bpm) 80 88 80 80 76 Respiration Rate (breaths/min) 20 20 20 20 20 Weight (lb) 117 120 120 118 120 Blood Pressure Sitting L 100/62 100/60 100/60 110/56 Vital Name 10/04/2020 02:18P 09/27/2020 01:44P 09/19/2020 09:58A 09/11/2020 03:39P 09/05/2020 09:48A BP Cuff Size Regular Regular Regular Pulse Rate-Sitting (bpm) 116 76 76 Respiration Rate (breaths/min) 24 20 20 Weight (lb) 118 120 119 118 119 Blood Pressure Sitting L 110/60 98/62 100/60 Blood Pressure Sitting (mmHg) 104/60 110/68 Vital [...] 11:05A 07/11/2020 10:56A 06/07/2020 10:51A 05/26/2020 01:50P BP Cuff Size Regular Pulse Rate-Sitting (bpm) 80 114 78 72 86 Respiration Rate (breaths/min) 20 18 20 20 Weight (lb) 126 121.6 125 119 118.2 Blood Pressure Sitting L 102/62 Blood Pressure Sitting (mmHg) 116/80 120/80 124/80 [...] Name 02/01/2020 02:38P 12/27/2019 01:31P 12/07/2019 04:04P Pulse Rate-Sitting (bpm) 88 68 75 Respiration Rate (breaths/min) 18 18 Blood Pressure Sitting (mmHg) 90/58 98/60 Temp-Oral (F) 97.6 Pain Level 6 Results Includes: Results from 12/06/2019 through 12/05/2020 CBC W AUTO DIFF [facility] Ordered by Maya Barron MD [...] Auto See Note (0-2) N (Normal) Note: [id number] Ob fountain server: IG% IG% 100.1375 (B) Hct VFr [...] test results are final unless otherwise noted. [facility] Ordered by Maya Barron MD on [...] results are final unless otherwise noted. D-DIMER [facility] Ordered by Maya Barron MD [...] are final unless otherwise noted. Reported Physicians [facility] Ordered by Maya Barron MD on 12/01/2020 Collected: 12/01/2020 Reported: 12/01/2020 18:19 Reported Physicians See Note None Note: Reported Physicians:Ordering: Choco KaurAttending: Adam Pardo To: Maya Barron Reviewed by Maya Barron MD on 12/04; All test results are final unless otherwise noted. TROPONIN [facility] Ordered by Maya Barron MD on 12/01/2020 Collected: 12/01/2020 Reported: 12/01/2020 18:18 Troponin I SerPl-mCnc Less Than 0.015 (0.00-0.09) N (Normal) Note: Less than 0.09 NG/ML Negative 0.10 - 0.77 NG/ML High Risk0.78 NG/ML or Greater PositiveThe WHO defined the cutoff (definition for diagnosis of NC)for this method as 0.78 ng/ml.Responsible Observer: Troponin I Troponin I 600.1101 (G) Reviewed by Maya Barron MD on 12/04; All test results are final unless otherwise noted. Reported Physicians [facility] Ordered by Maya Barron MD on 12/01/2020 Collected: 12/01/2020 Reported: 12/01/2020 18:19 Reported Physicians See Note None Note: Reported Physicians:Ordering: Sara Kaurending: Adam Pardo To: Maya Barron Reviewed by Maya Barron MD on 12/04; All test results are final unless otherwise noted. Cepheid CT/NG RT-PCR [facility] Ordered by Maya Barron MD [...] may result in failure to detect the targetorganisms.17349-4P trach DNA Vag Ql ТАТЬЯНА+probeLNCHLAMNC. trachomatis NOT [id number]. trachomatis NOT [id number] gonorrhoea rRNA Vag Ql ТАТЬЯНА+probeLNNEIGNN.gonorrhoeae NOT [id number].gonorrhoeae NOT DETECTED Reviewed by Maya Barron MD on 11/29; All test results are final unless otherwise noted. Reported Physicians [facility] Ordered by Maya Barron MD on 11/29/2020 Collected: 11/29/2020 Reported: 11/29/2020 07:03 Reported Physicians See Note None Note: Reported Physicians:Ordering: Ricc a, JeanineAttending: Shay UpanineCopy To: Maya Barron Reviewed by Maya Barron MD on 11/29; All test results are final unless otherwise noted. AFFIRM [facility] Ordered by Maya Barron MD on 11/29/2020 Collected: 11/29/2020 Reported: 11/30/2020 13:21 Dionna species DNA Probe NOT DETECTED (NOT DETECTED) None Note: THIS TEST WAS PERFORMED AT:[employer] [place] [facility] [address]FQCCCH MERATI,MDResponsible Observer: Dionna DNA Dionna species DNA Probe [id number] 913.2350 ([employer] [place]) Gardnerella DNA Probe DETECTED (NOT DETECTED) H (High) Note: Increased levels of G. vaginalis m ay not be significantin the absence of signs and symptoms of bacterialvaginosis.Responsible Observer: Gardnerella DNA Gardnerella DNA Probe [id number] 913.2345 ([employer] [place]) Trichomonas DNA Probe NOT DETECTED (NOT DETECTED) None Note: Responsible Observer: Trichomonas DNA Trichomonas DNA Probe [id number] 913.2340 ([employer] [place]) Reviewed by Maya Barron MD on 12/01; All test results are final unless otherwise noted. Reported Physicians [facility] Ordered by Maya Barron MD on 11/29/2020 Collected: 11/29/2020 Reported: 11/30/2020 13:21 Reported Physicians See Note None Note: Reported Physicians:Ordering: Ricc a JeanineAttending: Shay UpanineManny To: Maya Barron Reviewed by Maya Barron MD on 12/01; All test results are final unless otherwise noted. ADD ON MICROSCOPIC [facility] Ordered by Maya Barron MD [...] are final unless otherwise noted. Reported Physicians [facility] Ordered by Maya Barron MD on 11/29/2020 Collected: 11/29/2020 Reported: 11/29/2020 04:51 Reported Physicians See Note None Note: Reported Physicians:Ordering: Gideon Samuelending: Vianey Up To: Maya Barron Reviewed by Maya Barron MD on 11/29; All test results are final unless otherwise noted. UA W/ CULTURE IF ABNORMAL [facility] Ordered by Maya Barron MD on 11/29/2020 Collected: 11/29/2020 Reported: 11/29/2020 04:49 Urobilinogen Ur Ql See Note (0.2-1 EU/dl) None Note: 0.2 EU/dl0.2 EU/[id number] E U/dlResponsible Observer: UROBILINOGEN UROBILINOGEN 300.4500 (C) RBC # Ur Strip NEGATIVE (NEGATIVE) None Note: Responsible Observer: BLOOD BLOOD 300.4652 (C) Prot Ur Ql Strip See Note (NEGATIVE) None Note: [id number] EResponsible Observer: PROTEIN PROTEIN 300.3750 (C) Ketones Ur Ql Strip See Note (NEGATIVE) None Note: [id number] EResponsible Observer: KETONE KETONE 300.3900 (C) Bilirub Ur Ql Strip.auto See Note (NEGATIVE) None Note: [id number] EResponsible Observer: BILIRUBIN BILIRUBIN 300.4550 (C) Glucose Ur Strip.auto-mCnc NEGATIVE (NEGATIVE) None Note: Responsible Observer: GLUCOSE GLUC OSE 300.3850 (C) Appearance Ur See Note (CLEAR) None Note: CLEARCLEARLCLEARResponsible Observ er: APPEARANCE APPEARANCE 300.3400 (A) Color Ur See Note None Note: YELLOWYELLOWLYELLOWResponsible Obs erver: COLOR COLOR 300.3330 (A) Leukocyte esterase Ur Ql Strip See Note (NEGATIVE) None Note: [id number]@DO MICR O!!!!A Culture has been added to this specimen per established criteriaResponsible Observer: LEUKOCYTES LEUKOCYTES 300.3576 (C) Nitrite Ur Ql Strip See Note (NEGATIVE) None Note: [id number] EResponsible Observer: NITRITE NITRITE 300.3652 (B) pH [...] are final unless otherwise noted. Urine culture [facility] Ordered by Maya Barron MD on 11/29/2020 Collected: 11/29/2020 Reported: 11/30/2020 07:23 Bacteria Ur Cult See Note None Note: NGNo growth.L1NG NOTES See Note None Note: @11/29/20 0450: Urine culture adde d. RFLXG = CULT.ADD. Reviewed by Maya Barron MD on 12/01; All test results are final unless otherwise noted. Reported Physicians [facility] Ordered by Maya Barron MD on 11/29/2020 Collected: 11/29/2020 Reported: 11/30/2020 07:23 Reported Physicians See Note None Note: Reported Physicians:Ordering: Gideon Samuelending: Vianey Up To: Maya Barron Reviewed by Maya Barron MD on 12/01; All test results are final unless otherwise noted. TROPONIN [facility] Ordered by Maya Barron MD on 11/20/2020 Collected: 11/20/2020 Reported: 11/20/2020 20:04 Troponin I SerPl-mCnc Less Than 0.015 (0.00-0.09) N (Normal) Note: Less than 0.09 NG/ML Negative 0.10 - 0.77 NG/ML High Risk0.78 NG/ML or Greater PositiveThe WHO defined the cutoff (definition for diagnosis of NC)for this method as 0.78 ng/ml.Responsible Observer: Troponin I Troponin I 600.1101 (G) Reviewed by Maya Barron MD on 11/22; All test results are final unless otherwise noted. Reported Physicians [facility] Ordered by Maya Barron MD on 11/20/2020 Collected: 11/20/2020 Reported: 11/20/2020 20:05 Reported Physicians See Note None Note: Reported Physicians:Ordering: Les Vanegas AAttending: Fady Raza To: Maya Barron Reviewed by Maya Barron MD on 11/22; All test results are final unless otherwise noted. Cepheid SARS/FLU/RSV RT-PCR [facility] Ordered by Maya Barron MD [...] by FDA under an EUA for use bypeak behavioral health serviceshorized [id number]-iwm CoV RNA Resp Ql ТАТЬЯНА+xltqtXBMRLQOPSKL-FUB-6 NOT [id number]-RLD-4 NOT [id number] RNA Resp Ql ТАТЬЯНА+probeLNNFLUAInfluenza A Not Det [id number] A Not Hcussfua97718-7RZQXC RNA Resp Ql ТАТЬЯНА+probeLNNINBInfluenza B Not [id number] B Not Gxvvfhjc64515- 2RSV RNA Resp Ql ТАТЬЯНА+probeLNNRSVRSV Not [id number] Not Detected Reviewed by Maya Barron MD on 11/20; All test results are final unless otherwise noted. Reported Physicians [facility] Ordered by Maya Barron MD on 11/18/2020 Collected: 11/18/2020 Reported: 11/18/2020 23:58 Reported Physicians See Note None Note: Reported Physicians:Ordering: Aj Snowending: Jos Castellanos To: Maya Barron Reviewed by Maya Barron MD on 11/20; All test results are final unless otherwise noted. URINE DRUG SCREEN -(LC) [facility] Ordered by Maya Barron MD on 11/17/2020 Collected: 11/17/2020 Reported: 11/17/2020 14:19 PCP Ur Ql Scn>25 ng/mL See Note (Cutoff 25) None Note: [id number] E@Reenter manual test result: NEGATIVE@by Claudia Tello at 11/17/20 1414.Responsible Observer: PCP Urine Phencyclidine (PCP) Scrn 400.5120 (A) THC Ur Ql Scn>50 ng/mL See Note (Cutoff 50) None Note: [id number] EResponsible Observer: Marijuana (THC) Ur Marijuana (THC) Screen 400.5110 (A) Benzodiaz Ur Ql Scn See Note (Cutoff 150) None Note: [id number] E@Reenter manual test result: NEGATIVE@by Claudia Tello at 11/17/20 1418.Responsible Observer: Benzodiazepines Urine Benzodiazepines Screen 400.5170 (A) Opiates Ur Ql Scn See Note (Cutoff 100) None Note: [id number] E@Reenter manual test result: NEGATIVE@by Claudia Tello at 11/17/20 1418.Responsible Observer: Opiates Urine Opiates Screen 400.5150 (A) Tricyclics Ur Ql Scn See Note (Cutoff 300) None Note: [id number] E@Reenter manual test result: NEGATIVE@by Claudia Tello at 11/17/20 1418.Responsible Observer: TCA Ur Tricyclic Antidepressants 400.5180 (A) Cocaine Ur Ql Scn See Note (Cutoff 150) None Note: [id number] E@Reenter manual test result: NEGATIVE@by Claudia Tello at 11/17/20 1417.Responsible Observer: Cocaine Urine Cocaine Screen 400.5130 (A) Propoxyph+Nor Ur Ql Scn See Note (Cutoff 300) None Note: [id number] E@Reenter manual test result: NEGATIVE@by Claudia Tello at 11/17/20 1418.Responsible Observer: Propoxyphene Urine Propoxyphene Screen 400.5220 (A) Methadone Ur Ql Scn See Note (Cutoff 200) None Note: [id number] E@Reenter manual test result: NEGATIVE@by Claudia Tello at 11/17/20 1418.Responsible Observer: Methadone Urine Methadone Screen 400.5190 (A) Methamphet Ur Ql Scn See Note (Cutoff 500) None Note: [id number] E@Reenter manual test result: NEGATIVE@by Claudia Tello at 11/17/20 1417.Responsible Observer: Methamphetamine Urine Methamphetamines Screen 400.5140 (A) oxyCODONE Ur Ql Scn See Note (Cutoff 100) None Note: [id number] E@Reenter manual test result: NEGATIVE@by Claudia Tello at 11/17/20 1418.Responsible Observer: Oxycodone Urine Oxycodone Screen 400.5210 (A) Buprenorphine Ur Ql See Note (Cutoff 10) None Note: [id number] E@Reenter manual test result: NEGATIVE@by Claudia Tello at 11/17/20 1419.Responsible Observer: Buprenorphine Urine Buprenorphine Screen 400.5230 (A) Amphetamines Ur Ql Scn>500 ng/mL See Note (Cutoff 500) None Note: [id number] E@Reenter manual test result: NEGATIVE@by Claudia Tello at 11/17/20 1418.Responsible Observer: Amphetamines Urine Amphetamines Screen 400.5160 (A) Barbiturates Ur Ql Scn>200 ng/mL See Note (Cutoff 200) None Note: [id number] E@Reenter manual test result: NEGATIVE@by Claudia Tello at 11/17/20 1418.Responsible Observer: Barbiturates Urine Barbiturates 400.5200 (A) Reviewed by Maya Barron MD on 11/20; All test results are final unless otherwise noted. IRON [facility] Ordered by Maya Barron MD on 11/17/2020 Collected: 11/17/2020 Reported: 11/17/2020 14:34 Iron SerPl-mCnc 39 (50-170) L (Low) Note: Iron values may be falsely elevate d in serum samples frompatients treated with anticoagulants (e.g., hemodialysispatients)Responsible Observer: Iron Level Iron Level 400.9002 (A) Reviewed by Maya Barron MD on 11/20; All test results are final unless otherwise noted. Reported Physicians [facility] Ordered by Maya Barron MD on 11/17/2020 Collected: 11/17/2020 Reported: 11/17/2020 14:34 Reported Physicians See Note None Note: Reported Physicians:Ordering: Maya AlvarengaAttending: Maya Barron Reviewed by Maya Barron MD on 11/20; All test results are final unless otherwise noted. CBC W AUTO DIFF [facility] Ordered by Maya Barron MD [...] Auto See Note (0-2) N (Normal) Note: 0.60.2C53492699446.6Responsible Ob fountain server: IG% IG% 100.1375 (B) Hct VFr [...] results are final unless otherwise noted. HA1C [facility] Ordered by Maya Barron MD [...] blood glucose control.* High risk of developing [facility] complications such asretinopathy, nephropathy, neuropathy, cardiopathy, etc. [...] results are final unless otherwise noted. CMP [facility] Ordered by Maya Barron MD [...] final unless otherwise noted. Vitamin D 25-OH [facility] Ordered by Maya Barron MD [...] VIT D, (D2,D3), LC/MS/MS is recommended: ordercode 36012 (patients >2yrs).See Note 1Note 1For additional information, please refer tohttp://education.[employer]/faq/RVK682(This link is being provided for informational/educational purposes only.)THIS TEST WAS PERFORMED AT:[employer] [address]CLAUDY ONEILLesponsible Observer: Vitamin D 25-OH Vitamin D 25-Hydroxy [id number] 914.1810 ([facility]) Reviewed by Maya Barron MD on 11/20; All test results are final unless otherwise noted. Reported Physicians [facility] Ordered by Maya Barron MD on 11/17/2020 Collected: 11/17/2020 Reported: 11/18/2020 08:17 Reported Physicians See Note None Note: Reported Physicians:Ordering: Maya AlvarengaAttending: Maya Barron Reviewed by Maya Barron MD on 11/20; All test results are final unless otherwise noted. FREE T4 (LAB) [facility] Ordered by Maya Barron MD on 11/17/2020 Collected: 11/17/2020 Reported: 11/17/2020 14:34 T4 Free SerPl-mCnc 0.78 NanoGramsPerDeciLiter_[Mass_Concentration_Units] (0.89-1.76) L (Low) Note: Responsible Observer: FREE T4 Free Thyroxine 600.7005 (D) Reviewed by Maya Barron MD on 11/20; All test results are final unless otherwise noted. Reported Physicians [facility] Ordered by Maya Barron MD on 11/17/2020 Collected: 11/17/2020 Reported: 11/17/2020 14:34 Reported Physicians See Note None Note: Reported Physicians:Ordering: Maya AlvarengaAttending: Maya Barron Reviewed by Maya Barron MD on 11/20; All test results are final unless otherwise noted. TSH [facility] Ordered by Maya Barron MD on 11/17/2020 Collected: 11/17/2020 Reported: 11/17/2020 14:34 TSH SerPl DL<=0.005 mIU/L-aCnc 1.38 MicroInternationalUnitsPerMilliLiter_[Arbitrary_Con (0.35-5. 50) N (Normal) Note: Responsible Observer: TSH TSH 600 .7055 (D) Reviewed by Maya Barron MD on 11/20; All test results are final unless otherwise noted. Reported Physicians [facility] Ordered by Maya Barron MD on 11/17/2020 Collected: 11/17/2020 Reported: 11/17/2020 14:34 Reported Physicians See Note None Note: Reported Physicians:Ordering: Maya AlvarengaAttending: Maya Barron Reviewed by Maya Barron MD on 11/20; All test results are final unless otherwise noted. TROPONIN [facility] Ordered by Maya Barron MD on 10/23/2020 Collected: 10/23/2020 Reported: 10/23/2020 01:03 Troponin I SerPl-mCnc Less Than 0.015 (0.00-0.09) N (Normal) Note: Less than 0.09 NG/ML Negative 0.10 - 0.77 NG/ML High Risk0.78 NG/ML or Greater PositiveThe WHO defined the cutoff (definition for diagnosis of NC)for this method as 0.78 ng/ml.Responsible Observer: Troponin I Troponin I 600.1101 (G) Reviewed by Maya Barron MD on 10/23; All test results are final unless otherwise noted. Reported Physicians [facility] Ordered by Maya Barron MD on 10/23/2020 Collected: 10/23/2020 Reported: 10/23/2020 01:03 Reported Physicians See Note None Note: Reported Physicians:Ordering: Yoli NapolesAttending: Charles Silva To: Maya Barron Reviewed by Maya Barron MD on 10/23; All test results are final unless otherwise noted. CBC W AUTO DIFF [facility] Ordered by Maya Barron MD [...] Auto See Note (0-2) N (Normal) Note: [id number] Ob fountain server: IG% IG% 100.1375 (B) Hct VFr [...] test results are final unless otherwise noted. [facility] Ordered by Maya Barron MD on [...] results are final unless otherwise noted. D-DIMER [facility] Ordered by Maya Barron MD [...] are final unless otherwise noted. Reported Physicians [facility] Ordered by Maya Barron MD on 10/23/2020 Collected: 10/23/2020 Reported: 10/23/2020 01:22 Reported Physicians See Note None Note: Reported Physicians:Ordering: Cliff Napolesending: Charles Silva To: Maya Barron Reviewed by Maya Barron MD on 10/23; All test results are final unless otherwise noted. BHCG Quantitative [facility] Ordered by Maya Barron MD on 10/23/2020 Collected: 10/23/2020 Reported: 10/23/2020 01:21 B-HCG SerPl-aCnc 94308 MilliInternationalUnitsPerMilliLiter_[Arbitrary_Con (0-10) H (High) Note: @Instrument will autodiluteAPPROXI MATE GESTATION AGE APRROXIMATE HCG RANGE 0-1 WEEK 0 - 50 1-2 WEEKS 40 - 300 2-3 WEEKS 100 - 1,000 3-4 WEEKS 500 - 6,000 1-2 MONTHS 5,000 - 200,000 2-3 MONTHS 10,000 - 100,000 2ND TRIMESTER 3,000 - 50,000 3RD TRIMESTER 1,000 - 50,000Responsible Observer: [facility] Quant CG Quantitative 600.5006 (G) Reviewed by Maya Barron MD on 10/23; All test results are final unless otherwise noted. Reported Physicians [facility] Ordered by Maya Barron MD on 10/23/2020 Collected: 10/23/2020 Reported: 10/23/2020 01:21 Reported Physicians See Note None Note: Reported Physicians:Ordering: Yoli NapolesAttending: Yoli SilvaCopyifan To: Maya Barron Reviewed by Maya Barron MD on 10/23; All test results are final unless otherwise noted. TSH [facility] Ordered by Maya Barron MD on 10/21/2020 Collected: 10/21/2020 Reported: 10/21/2020 15:17 TSH SerPl DL<=0.005 mIU/L-aCnc 1.40 MicroInternationalUnitsPerMilliLiter_[Arbitrary_Con (0.35-5. 50) N (Normal) Note: Responsible Observer: TSH TSH 600 .7055 (D) Reviewed by Maya Barron MD on 10/23; All test results are final unless otherwise noted. Reported Physicians [facility] Ordered by Maya Barron MD on 10/21/2020 Collected: 10/21/2020 Reported: 10/21/2020 15:17 Reported Physicians See Note None Note: Reported Physicians:Ordering: Tramaine KaurothyAttending: Adam Pardo To: Maya Barron Reviewed by Maya Barron MD on 10/23; All test results are final unless otherwise noted. FREE T4 (LAB) [facility] Ordered by Maya Barron MD on 10/21/2020 Collected: 10/21/2020 Reported: 10/21/2020 15:17 T4 Free SerPl-mCnc 0.97 NanoGramsPerDeciLiter_[Mass_Concentration_Units] (0.89-1.76) N (Normal) Note: Responsible Observer: FREE T4 Free Thyroxine 600.7005 (D) Reviewed by Maya Barron MD on 10/23; All test results are final unless otherwise noted. Reported Physicians [facility] Ordered by Maya Barron MD on 10/21/2020 Collected: 10/21/2020 Reported: 10/21/2020 15:17 Reported Physicians See Note None Note: Reported Physicians:Ordering: Choco KaurAttending: Adam Pardo To: Maya Barron Reviewed by Maya Barron MD on 10/23; All test results are final unless otherwise noted. UA W/ CULTURE IF ABNORMAL [facility] Ordered by Maya Barron MD on 10/19/2020 Collected: 10/19/2020 Reported: 10/19/2020 16:31 Urobilinogen Ur Ql See Note (0.2-1 EU/dl) None Note: 0.2 EU/dl0.2 EU/[id number] E U/dlResponsible Observer: UROBILINOGEN UROBILINOGEN 300.4500 (C) RBC # Ur Strip NEGATIVE (NEGATIVE) None Note: Responsible Observer: BLOOD BLOOD 300.4652 (C) Prot Ur Ql Strip See Note (NEGATIVE) None Note: [id number] EResponsible Observer: PROTEIN PROTEIN 300.3750 (C) Ketones Ur Ql Strip See Note (NEGATIVE) None Note: [id number] EResponsible Observer: KETONE KETONE 300.3900 (C) Bilirub Ur Ql Strip.auto See Note (NEGATIVE) None Note: [id number] EResponsible Observer: BILIRUBIN BILIRUBIN 300.4550 (C) Glucose Ur Strip.auto-mCnc 100 mg/dl (NEGATIVE) None Note: Responsible Observer: GLUCOSE GLUC OSE 300.3850 (C) Appearance Ur See Note (CLEAR) None Note: CLEARCLEARLCLEARResponsible Observ er: APPEARANCE APPEARANCE 300.3400 (A) Color Ur See Note None Note: YELLOWYELLOWLYELLOWResponsible Obs erver: COLOR COLOR 300.3330 (A) Leukocyte esterase Ur Ql Strip See Note (NEGATIVE) None Note: [id number] EResponsible Observer: LEUKOCYTES LEUKOCYTES 300.3576 (C) Nitrite Ur Ql Strip See Note (NEGATIVE) None Note: [id number] EResponsible Observer: NITRITE NITRITE 300.3652 (B) pH [...] are final unless otherwise noted. Reported Physicians [facility] Ordered by Maya Barron MD on 10/19/2020 Collected: 10/19/2020 Reported: 10/19/2020 16:31 Reported Physicians See Note None Note: Reported Physicians:Ordering: Les Vanegasding: Fady Raza To: Maya aBrron Reviewed by Maya Barron MD on 10/20; All test results are final unless otherwise noted. URINE DRUG SCREEN -([facility]) [facility] Ordered by Maya Barron MD on 10/19/2020 Collected: 10/19/2020 Reported: 10/19/2020 16:40 PCP Ur Ql Scn>25 ng/mL See Note (Cutoff 25) None Note: [id number] E@Reenter manual test result: NEGATIVE@by Jia Lentz at 10/19/20 1639.Responsible Observer: PCP Urine Phencyclidine (PCP) Scrn 400.5120 (A) THC Ur Ql Scn>50 ng/mL See Note (Cutoff 50) None Note: [id number] EResponsible Observer: Marijuana (THC) Ur Marijuana (THC) Screen 400.5110 (A) Benzodiaz Ur Ql Scn See Note (Cutoff 150) None Note: [id number] E@Reenter manual test result: NEGATIVE@by Jia Lentz at 10/19/20 1640.Responsible Observer: Benzodiazepines Urine Benzodiazepines Screen 400.5170 (A) Opiates Ur Ql Scn See Note (Cutoff 100) None Note: [id number] E@Reenter manual test result: NEGATIVE@by Jia Lentz at 10/19/20 1640.Responsible Observer: Opiates Urine Opiates Screen 400.5150 (A) Tricyclics Ur Ql Scn See Note (Cutoff 300) None Note: [id number] E@Reenter manual test result: NEGATIVE@by Jia Lentz at 10/19/20 1640.Responsible Observer: TCA Ur Tricyclic Antidepressants 400.5180 (A) Cocaine Ur Ql Scn See Note (Cutoff 150) None Note: [id number] E@Reenter manual test result: NEGATIVE@by Jia Lentz at 10/19/20 1640.Responsible Observer: Cocaine Urine Cocaine Screen 400.5130 (A) Propoxyph+Nor Ur Ql Scn See Note (Cutoff 300) None Note: [id number] E@Reenter manual test result: NEGATIVE@by Jia Lentz at 10/19/20 1640.Responsible Observer: Propoxyphene Urine Propoxyphene Screen 400.5220 (A) Methadone Ur Ql Scn See Note (Cutoff 200) None Note: [id number] E@Reenter manual test result: NEGATIVE@by Jia Lentz at 10/19/20 1640.Responsible Observer: Methadone Urine Methadone Screen 400.5190 (A) Methamphet Ur Ql Scn See Note (Cutoff 500) None Note: [id number] E@Reenter manual test result: NEGATIVE@by Jia Lentz at 10/19/20 1640.Responsible Observer: Methamphetamine Urine Methamphetamines Screen 400.5140 (A) oxyCODONE Ur Ql Scn See Note (Cutoff 100) None Note: [id number] E@Reenter manual test result: NEGATIVE@by Jia Lentz at 10/19/20 1640.Responsible Observer: Oxycodone Urine Oxycodone Screen 400.5210 (A) Buprenorphine Ur Ql See Note (Cutoff 10) None Note: [id number] E@Reenter manual test result: NEGATIVE@by Jia Lentz at 10/19/20 1640.Responsible Observer: Buprenorphine Urine Buprenorphine Screen 400.5230 (A) Amphetamines Ur Ql Scn>500 ng/mL See Note (Cutoff 500) None Note: [id number] E@Reenter manual test result: NEGATIVE@by Jia Lentz at 10/19/20 1640.Responsible Observer: Amphetamines Urine Amphetamines Screen 400.5160 (A) Barbiturates Ur Ql Scn>200 ng/mL See Note (Cutoff 200) None Note: [id number] E@Reenter manual test result: NEGATIVE@by Jia Lentz at 10/19/20 1640.Responsible Observer: Barbiturates Urine Barbiturates 400.5200 (A) Reviewed by Maya Barron MD on 10/20; All test results are final unless otherwise noted. Reported Physicians [facility] Ordered by Maya Barron MD on 10/19/2020 Collected: 10/19/2020 Reported: 10/19/2020 16:40 Reported Physicians See Note None Note: Reported Physicians:Ordering: Les Vanegasding: Fady Raza To: Maya Barron Reviewed by Maya Barron MD on 10/20; All test results are final unless otherwise noted. TROPONIN [facility] Ordered by Maya Barron MD on 10/19/2020 Collected: 10/19/2020 Reported: 10/19/2020 16:10 Troponin I SerPl-mCnc Less Than 0.015 (0.00-0.09) N (Normal) Note: Less than 0.09 NG/ML Negative 0.10 - 0.77 NG/ML High Risk0.78 NG/ML or Greater PositiveThe WHO defined the cutoff (definition for diagnosis of NC)for this method as 0.78 ng/ml.Responsible Observer: Troponin I Troponin I 600.1101 (G) Reviewed by Maya Barron MD on 10/20; All test results are final unless otherwise noted. Reported Physicians [facility] Ordered by Maya Barron MD on 10/19/2020 Collected: 10/19/2020 Reported: 10/19/2020 16:10 Reported Physicians See Note None Note: Reported Physicians:Ordering: Les Vanegas: Fady Raza To: Maya Barron Reviewed by Maya Barron MD on 10/20; All test results are final unless otherwise noted. TSH w/ reflex to Free T4 [facility] Ordered by Maya Barron MD on 10/19/2020 Collected: 10/19/2020 Reported: 10/19/2020 16:08 TSH SerPl DL<=0.005 mIU/L-aCnc 1.66 MicroInternationalUnitsPerMilliLiter_[Arbitrary_Con (0.35-5. 50) N (Normal) Note: Responsible Observer: TSH TSH 600 .7060 (D) Reviewed by Maya Barron MD on 10/20; All test results are final unless otherwise noted. Reported Physicians [facility] Ordered by Maya Barron MD on 10/19/2020 Collected: 10/19/2020 Reported: 10/19/2020 16:08 Reported Physicians See Note None Note: Reported Physicians:Ordering: Les Vanegas: Fady Raza To: Maya Barron Reviewed by Maya Barron MD on 10/20; All test results are final unless otherwise noted. CRP, C-REACTIVE PROTEIN [facility] Ordered by Maya Barron MD on 10/19/2020 Collected: 10/19/2020 Reported: 10/19/2020 16:08 CRP SerPl-mCnc 7.5 MilliGramsPerLiter_[Mass_Concentration_Units] (0.0-5.0) H (High) Note: Responsible Observer: CRP C-Reacti ve Protein 401.4355 (H) Reviewed by Maya Barron MD on 10/20; All test results are final unless otherwise noted. SED RATE [facility] Ordered by Maya Barron MD on 10/19/2020 Collected: 10/19/2020 Reported: 10/19/2020 16:32 ESR Bld Qn Westrgrn 22 (0-20) H (High) Note: @Reenter manual test result: 22@by Jia Lentz at 10/19/20 1632.Responsible Observer: SED RATE SED RATE 100.6400 (B) Reviewed by Maya Barron MD on 10/20; All test results are final unless otherwise noted. Reported Physicians [facility] Ordered by Maya Barron MD on 10/19/2020 Collected: 10/19/2020 Reported: 10/19/2020 16:33 Reported Physicians See Note None Note: Reported Physicians:Ordering: Les Vanegas AAttending: Fady Raza To: Maya Barron Reviewed by Maya Barron MD on 10/20; All test results are final unless otherwise noted. CMP [facility] Ordered by Maya Barron MD [...] unless otherwise noted. CBC W AUTO DIFF [facility] Ordered by Maya Barron MD [...] Auto See Note (0-2) N (Normal) Note: [id number] Ob fountain server: IG% IG% 100.1375 (B) Hct VFr [...] are final unless otherwise noted. Reported Physicians [facility] Ordered by Maya Barron MD on 10/19/2020 Collected: 10/19/2020 Reported: 10/19/2020 16:33 Reported Physicians See Note None Note: Reported Physicians:Ordering: Les Vanegas AAttending: Fady Raza To: Maya Barron Reviewed by Maya Barron MD on 10/20; All test results are final unless otherwise noted. PT/PTT [facility] Ordered by Maya Barron MD [...] are final unless otherwise noted. Reported Physicians [facility] Ordered by Maya Barron MD on 10/08/2020 Collected: 10/08/2020 Reported: 10/08/2020 03:22 Reported Physicians See Note None Note: Reported Physicians:Ordering: Sana Recinosending: Sammie Ann To: Maya Barron Reviewed by Maya Barron MD on 10/09; All test results are final unless otherwise noted. CBC W AUTO DIFF [facility] Ordered by Maya Barron MD [...] Auto See Note (0-2) N (Normal) Note: [id number] Ob fountain server: IG% IG% 100.1375 (B) Hct VFr [...] results are final unless otherwise noted. MAGNESIUM [facility] Ordered by Maya Barron MD on 10/08/2020 Collected: 10/08/2020 Reported: 10/08/2020 03:17 Magnesium SerPl-mCnc 1.8 MilliGramsPerDeciLiter_[Mass_Concentration_Units] (1.3-2.7) N (Normal) Note: Responsible Observer: Magnesium Ma gnesium 400.3300 (G) Reviewed by Maya Barron MD on 10/09; All test results are final unless otherwise noted. D-DIMER [facility] Ordered by Maya Barron MD [...] are final unless otherwise noted. Reported Physicians [facility] Ordered by Maya Barron MD on 10/08/2020 Collected: 10/08/2020 Reported: 10/08/2020 03:27 Reported Physicians See Note None Note: Reported Physicians:Ordering: Sana Recinosending: Jasper AnnhCopy To: Maya Barron Reviewed by Maya Barron MD on 10/09; All test results are final unless otherwise noted. BMP [facility] Ordered by Maya Barron MD [...] are final unless otherwise noted. Reported Physicians [facility] Ordered by Maya Barron MD on 10/08/2020 Collected: 10/08/2020 Reported: 10/08/2020 03:21 Reported Physicians See Note None Note: Reported Physicians:Ordering: Sana Recinosending: Sammie Ann To: Maya Barron Reviewed by Maya Barron MD on 10/09; All test results are final unless otherwise noted. SED RATE [facility] Ordered by Maya Barron MD on 10/04/2020 Collected: 10/04/2020 Reported: 10/04/2020 18:05 ESR Bld Qn Westrgrn 16 (0-20) N (Normal) Note: @Reenter manual test result: 16@by Jia Lentz at 10/04/20 1805.Responsible Observer: SED RATE SED RATE 100.6400 (B) Reviewed by Maya Barron MD on 10/09; All test results are final unless otherwise noted. Reported Physicians [facility] Ordered by Maya Barron MD on 10/04/2020 Collected: 10/04/2020 Reported: 10/04/2020 18:06 Reported Physicians See Note None Note: Reported Physicians:Ordering: Les Vanegasding: Fady Raza To: Maya Barron Reviewed by Maya Barron MD on 10/09; All test results are final unless otherwise noted. TSH w/ reflex to Free T4 [facility] Ordered by Maya Barron MD on 10/04/2020 Collected: 10/04/2020 Reported: 10/04/2020 17:42 TSH SerPl DL<=0.005 mIU/L-aCnc 1.92 MicroInternationalUnitsPerMilliLiter_[Arbitrary_Con (0.35-5. 50) N (Normal) Note: Responsible Observer: TSH TSH 600 .7060 (D) Reviewed by Maya Barron MD on 10/09; All test results are final unless otherwise noted. Reported Physicians [facility] Ordered by Maya Barron MD on 10/04/2020 Collected: 10/04/2020 Reported: 10/04/2020 17:42 Reported Physicians See Note None Note: Reported Physicians:Ordering: Les Vanegas: Fady Raza To: Maya Barron Reviewed by Maya Barron MD on 10/09; All test results are final unless otherwise noted. TROPONIN [facility] Ordered by Maya Barron MD on 10/04/2020 Collected: 10/04/2020 Reported: 10/04/2020 17:35 Troponin I SerPl-mCnc Less Than 0.015 (0.00-0.09) N (Normal) Note: Less than 0.09 NG/ML Negative 0.10 - 0.77 NG/ML High Risk0.78 NG/ML or Greater PositiveThe WHO defined the cutoff (definition for diagnosis of NC)for this method as 0.78 ng/ml.Responsible Observer: Troponin I Troponin I 600.1101 (G) Reviewed by Maya Barron MD on 10/09; All test results are final unless otherwise noted. Reported Physicians [facility] Ordered by Maya Barron MD on 10/04/2020 Collected: 10/04/2020 Reported: 10/04/2020 17:35 Reported Physicians See Note None Note: Reported Physicians:Ordering: Les Vanegas: Fady Raza To: Maya Barron Reviewed by Maya Barron MD on 10/09; All test results are final unless otherwise noted. CBC W AUTO DIFF [facility] Ordered by Maya Barron MD [...] Auto See Note (0-2) N (Normal) Note: [id number] Ob fountain server: IG% IG% 100.1375 (B) Hct VFr [...] test results are final unless otherwise noted. [facility] Ordered by Maya Barron MD on [...] are final unless otherwise noted. Reported Physicians [facility] Ordered by Maya Barron MD on 10/04/2020 Collected: 10/04/2020 Reported: 10/04/2020 17:42 Reported Physicians See Note None Note: Reported Physicians:Ordering: Les Vanegasding: Fady Raza To: Maya Barron Reviewed by Maya Barron MD on 10/09; All test results are final unless otherwise noted. TROPONIN [facility] Ordered by Maya Barron MD on 10/03/2020 Collected: 10/03/2020 Reported: 10/03/2020 20:07 Troponin I SerPl-mCnc Less Than 0.015 (0.00-0.09) N (Normal) Note: Less than 0.09 NG/ML Negative 0.10 - 0.77 NG/ML High Risk0.78 NG/ML or Greater PositiveThe WHO defined the cutoff (definition for diagnosis of NC)for this method as 0.78 ng/ml.Responsible Observer: Troponin I Troponin I 600.1101 (G) Reviewed by Maya Barron MD on 10/04; All test results are final unless otherwise noted. Reported Physicians [facility] Ordered by Maya Barron MD on 10/03/2020 Collected: 10/03/2020 Reported: 10/03/2020 20:07 Reported Physicians See Note None Note: Reported Physicians:Ordering: Yoli NapolesAttending: Yoli SilvaCopy To: Maya Barron Reviewed by Maya Barron MD on 10/04; All test results are final unless otherwise noted. BHCG Quantitative [facility] Ordered by Maya Barron MD on 10/03/2020 Collected: 10/03/2020 Reported: 10/03/2020 20:23 B-HCG SerPl-aCnc 93959 MilliInternationalUnitsPerMilliLiter_[Arbitrary_Con (0-10) H (High) Note: @Instrument will [...] are final unless otherwise noted. Reported Physicians [facility] Ordered by Maya Barron MD on 10/03/2020 Collected: 10/03/2020 Reported: 10/03/2020 20:23 Reported Physicians See Note None Note: Reported Physicians:Ordering: Yoli NapolesAttending: Charles Silva To: Maya Barron Reviewed by Maya Barron MD on 10/04; All test results are final unless otherwise noted. CBC W AUTO DIFF [facility] Ordered by Maya Barron MD [...] Auto See Note (0-2) N (Normal) Note: [id number] Ob fountain server: IG% IG% 100.1375 (B) Hct VFr [...] test results are final unless otherwise noted. [facility] Ordered by Maya Barron MD on [...] are final unless otherwise noted. Reported Physicians [facility] Ordered by Maya Barron MD on 10/03/2020 Collected: 10/03/2020 Reported: 10/03/2020 20:03 Reported Physicians See Note None Note: Reported Physicians:Ordering: Yoli NapolesAttending: Charles Silva To: Maya Barron Reviewed by Maya Barron MD on 10/04; All test results are final unless otherwise noted. FREE T4 (LAB) [facility] Ordered by Maya Barron MD on 10/03/2020 Collected: 10/03/2020 Reported: 10/03/2020 20:08 T4 Free SerPl-mCnc 0.97 NanoGramsPerDeciLiter_[Mass_Concentration_Units] (0.89-1.76) N (Normal) Note: Responsible Observer: FREE T4 Free Thyroxine 600.7005 (D) Reviewed by Maya Barron MD on 10/04; All test results are final unless otherwise noted. Reported Physicians [facility] Ordered by Maya Barron MD on 10/03/2020 Collected: 10/03/2020 Reported: 10/03/2020 20:08 Reported Physicians See Note None Note: Reported Physicians:Ordering: Yoli NapolesAttending: Charles Silva To: Maya Barron Reviewed by Maya Barron MD on 10/04; All test results are final unless otherwise noted. MANUAL DIFF [facility] Ordered by Maya Barron MD [...] (A) Reviewed by Maya Barron MD on 03/24 /2021; All test results are final unless otherwise noted. Reported Physicians [facility] Ordered by Maya Barron MD on 10/03/2020 Collected: 10/03/2020 Reported: 10/03/2020 19:56 Reported Physicians See Note None Note: Reported Physicians:Ordering: Yoli NapolesAttending: Charles Silva To: Maya Barron Reviewed by Maya Barron MD on 10/04; All test results are final unless otherwise noted. UA W/ CULTURE IF ABNORMAL [facility] Ordered by Maya Barron MD on 10/03/2020 Collected: 10/03/2020 Reported: 10/03/2020 19:52 Urobilinogen Ur Ql See Note (0.2-1 EU/dl) None Note: 0.2 EU/dl0.2 EU/[id number] E U/dlResponsible Observer: UROBILINOGEN UROBILINOGEN 300.4500 (C) RBC # Ur Strip NEGATIVE (NEGATIVE) None Note: Responsible Observer: BLOOD BLOOD 300.4652 (C) Prot Ur Ql Strip See Note (NEGATIVE) None Note: [id number] EResponsible Observer: PROTEIN PROTEIN 300.3750 (C) Ketones Ur Ql Strip See Note (NEGATIVE) None Note: [id number] EResponsible Observer: KETONE KETONE 300.3900 (C) Bilirub Ur Ql Strip.auto See Note (NEGATIVE) None Note: [id number] EResponsible Observer: BILIRUBIN BILIRUBIN 300.4550 (C) Glucose Ur Strip.auto-mCnc NEGATIVE (NEGATIVE) None Note: Responsible Observer: GLUCOSE GLUC OSE 300.3850 (C) Appearance Ur See Note (CLEAR) None Note: CLEARCLEARLCLEARResponsible Observ er: APPEARANCE APPEARANCE 300.3400 (A) Color Ur See Note None Note: YELLOWYELLOWLYELLOWResponsible Obs erver: COLOR COLOR 300.3330 (A) Leukocyte esterase Ur Ql Strip See Note (NEGATIVE) None Note: [id number]@DO MICR O!!!!A Culture has been added to this specimen per established criteriaResponsible Observer: LEUKOCYTES LEUKOCYTES 300.3576 (C) Nitrite Ur Ql Strip See Note (NEGATIVE) None Note: [id number] EResponsible Observer: NITRITE NITRITE 300.3652 (B) pH [...] are final unless otherwise noted. Urine culture [facility] Ordered by Maya Barron MD on 10/03/2020 Collected: 10/03/2020 Reported: 10/04/2020 13:10 Bacteria Ur Cult See Note None Note: NGNo growth.L1NG NOTES See Note None Note: @10/03/201951: Urine culture adde d. RFLXG = CULT.ADD. Reviewed by Maya Barron MD on 10/04; All test results are final unless otherwise noted. Reported Physicians [facility] Ordered by Maya Barron MD on 10/03/2020 Collected: 10/03/2020 Reported: 10/04/2020 13:10 Reported Physicians See Note None Note: Reported Physicians:Ordering: Yoli NapolesAttending: Charles Silva To: Maya Barron Reviewed by Maya Barron MD on 10/04; All test results are final unless otherwise noted. ADD ON MICROSCOPIC [facility] Ordered by Maya Barron MD on 10/03/2020 Collected: 10/03/2020 Reported: 10/03/2020 19:52 ADD ON MICROSCOPIC See Note (0-5) None Note: NOTES OTHER/NOT INTERPRETED Bacteria UrnS Ql Micro SMALL AMOUNT Bacteria UrnS Ql Micro SMALL AMOUNT Bacteria UrnS Ql Micro L Bacteria UrnS Ql Micro Bacteria UrnS Ql Micro Bacteria UrnS Ql Micro Bacteria UrnS Ql Micro [id number] Bacteria UrnS Ql Micro Bacteria UrnS Ql [...] are final unless otherwise noted. Reported Physicians [facility] Ordered by Maya Barron MD on 10/03/2020 Collected: 10/03/2020 Reported: 10/03/2020 19:52 Reported Physicians See Note None Note: Reported Physicians:Ordering: Yoli NapolesAttending: Joaquín Silvay To: Maya Barron Reviewed by Maya Barron MD on 10/04; All test results are final unless otherwise noted. BHCG, QUANTITATIVE [facility] Ordered by Maya Barron MD on 09/18/2020 Collected: 09/18/2020 Reported: 09/18/2020 20:21 B-HCG [facility] [id number] MilliInternationalUnitsPerMilliLiter_[Arbitrary_Con (0-10) H (High) Note: APPROXIMATE GESTATION [...] are final unless otherwise noted. Reported Physicians [facility] Ordered by Maya Barron MD on 09/18/2020 Collected: 09/18/2020 Reported: 09/18/2020 20:22 Reported Physicians See Note None Note: Reported Physicians:Ordering: Yoli NapolesAttending: Yoli SilvaCopy To: Maya Barron Reviewed by Maya Barron MD on 09/20; All test results are final unless otherwise noted. CBC W AUTO DIFF [facility] Ordered by Maya Barron MD [...] Auto See Note (0-2) N (Normal) Note: [id number] Ob fountain server: IG% IG% 100.1375 (B) Hct VFr [...] test results are final unless otherwise noted. [facility] Ordered by Maya Barron MD on [...] are final unless otherwise noted. Reported Physicians [facility] Ordered by Maya Barron MD on 09/18/2020 Collected: 09/18/2020 Reported: 09/18/2020 20:10 Reported Physicians See Note None Note: Reported Physicians:Ordering: Yoli NapolesAttending: Charles Silva To: Maya Barron Reviewed by Maya Barron MD on 09/20; All test results are final unless otherwise noted. TROPONIN [facility] Ordered by Maya Barron MD on 09/18/2020 Collected: 09/18/2020 Reported: 09/18/2020 20:10 Troponin I SerPl-mCnc Less Than 0.015 (0.00-0.09) N (Normal) Note: Less than 0.09 NG/ML Negative 0.10 - 0.77 NG/ML High Risk0.78 NG/ML or Greater PositiveThe WHO defined the cutoff (definition for diagnosis of NC)for this method as 0.78 ng/ml.Responsible Observer: Troponin I Troponin I 600.1101 (G) Reviewed by Maya Barron MD on 09/20; All test results are final unless otherwise noted. Reported Physicians [facility] Ordered by Maya Barron MD on 09/18/2020 Collected: 09/18/2020 Reported: 09/18/2020 20:10 Reported Physicians See Note None Note: Reported Physicians:Ordering: Yoli NapolesAttending: Charles Silva To: Maya Barron Reviewed by Maya Barron MD on 09/20; All test results are final unless otherwise noted. Urine culture [facility] Ordered by Cat Gutierrez RPA on 09/11/2020 Collected: 09/11/2020 Reported: 09/12/2020 13:11 Bacteria Ur Cult See Note None Note: NGNo growth.L1NG NOTES See Note None Note: GEORGIANA PICKARD IN OTHER NAME IN MEDICAL RECORD Reviewed by Cat Gutierrez RPA on 09/12; All test results are final unless otherwise noted. Reported Physicians [facility] Ordered by Cat Gutierrez RPA on 09/11/2020 Collected: 09/11/2020 Reported: 09/12/2020 13:11 Reported Physicians See Note None Note: Reported Physicians:Ordering: Cat ConwayAttending: Cat Gutierrez Reviewed by Cat Gutierrez RPA on 09/12; All test results are final unless otherwise noted. UA W/ CULTURE IF ABNORMAL [facility] Ordered by Maya Barron MD on 09/10/2020 Collected: 09/10/2020 Reported: 09/10/2020 17:48 Urobilinogen Ur Ql See Note (0.2-1 EU/dl) None Note: 0.2 EU/dl0.2 EU/[id number] E U/dlResponsible Observer: UROBILINOGEN UROBILINOGEN 300.4500 (C) RBC # Ur Strip NEGATIVE (NEGATIVE) None Note: Responsible Observer: BLOOD BLOOD 300.4652 (C) Prot Ur Ql Strip See Note (NEGATIVE) None Note: [id number] EResponsible Observer: PROTEIN PROTEIN 300.3750 (C) Ketones Ur Ql Strip See Note (NEGATIVE) None Note: [id number] ble Observer: KETONE KETONE 300.3900 (C) Bilirub Ur Ql Strip.auto See Note (NEGATIVE) None Note: [id number] EResponsible Observer: BILIRUBIN BILIRUBIN 300.4550 (C) Glucose Ur Strip.auto-mCnc NEGATIVE (NEGATIVE) None Note: Responsible Observer: GLUCOSE GLUC OSE 300.3850 (C) Appearance Ur See Note (CLEAR) None Note: CLEARCLEARLCLEARResponsible Observ er: APPEARANCE APPEARANCE 300.3400 (A) Color Ur See Note None Note: YELLOWYELLOWLYELLOWResponsible Obs erver: COLOR COLOR 300.3330 (A) Leukocyte esterase Ur Ql Strip See Note (NEGATIVE) None Note: [id number] EResponsible Observer: LEUKOCYTES LEUKOCYTES 300.3576 (C) Nitrite Ur Ql Strip See Note (NEGATIVE) None Note: [id number] EResponsible Observer: NITRITE NITRITE 300.3652 (B) pH [...] are final unless otherwise noted. Reported Physicians [facility] Ordered by Maya Barron MD on 09/10/2020 Collected: 09/10/2020 Reported: 09/10/2020 17:48 Reported Physicians See Note None Note: Reported Physicians:Ordering: Les Vanegas: Fady Raza To: Maya Barron Reviewed by Maya Barron MD on 09/11; All test results are final unless otherwise noted. ABO/Rh Type [facility] Ordered by Maya Barron MD on 09/10/2020 Collected: 09/10/2020 Reported: 09/10/2020 15:43 Blood bank studies Yes None Note: Responsible Observer: Prev. Histor y? Previous History? 100.0800 (A) Blood Type See Note None Note: OPO PositiveLResponsible Observer: Blood Type Blood Type 110.0950 (C) Reviewed by Maya Barron MD on 09/11; All test results are final unless otherwise noted. Reported Physicians [facility] Ordered by Myaa Barron MD on 09/10/2020 Collected: 09/10/2020 Reported: 09/10/2020 15:43 Reported Physicians See Note None Note: Reported Physicians:Ordering: Les Vanegas: Fady Raza To: Maya Barron Reviewed by Maya Barron MD on 09/11; All test results are final unless otherwise noted. BHCG, QUANTITATIVE [facility] Ordered by Maya Barron MD on 09/10/2020 Collected: 09/10/2020 Reported: 09/10/2020 15:48 B-HCG SerPl-aCnc 95738 MilliInternationalUnitsPerMilliLiter_[Arbitrary_Con (0-10) H (High) Note: @Instrument will [...] are final unless otherwise noted. Reported Physicians [facility] Ordered by Maya Barron MD on 09/10/2020 Collected: 09/10/2020 Reported: 09/10/2020 15:49 Reported Physicians See Note None Note: Reported Physicians:Ordering: Les Vanegastending: Fady Raza To: Maya Barron Reviewed by Maya Barron MD on 09/11; All test results are final unless otherwise noted. COVID QUEST [facility] Ordered by Maya Barron MD [...] findings,re- testing should be considered in consultation [facility] authorities. Laboratory test results shouldalways be considered in the context of clinicalobservations and epidemiological data in making a finaldiagnosis and patient management decisions.Please review the "Fact Sheets" and FDA authorizedlabeling available for health care providers andpatients using the following websites:https://www.[employer] .com/home/Covid-19/HCP/NAAT/fact-xultk9vkzzu://www.[employer]/home/Cov id-19/Patients/NAAT/fact-ycotq4Psuo test has been authorized by the FDA under anEmergency Use Authorization (EUA) for use by authorizedlaboratories.Due to the current public health emergency, [facility] is receiving a high volume of samples [...] information about COVID-19 can be foundat the [facility] website:www.[employer]/Covid19.THIS TEST WAS PERFORMED AT:[employer] [address]MQHXGOCLAUDY ONEILLesponsible Observer: COVID-19 COVID-19 ТАТЬЯНА (SARS-CoV-2) [id number] 914.3785 ([employer] [place]) Reviewed by Maya Barron MD on 08/25; All test results are final unless otherwise noted. Reported Physicians [facility] Ordered by Maya Barron MD on 08/23/2020 Collected: 08/23/2020 Reported: 08/25/2020 03:57 Reported Physicians See Note None Note: Reported Physicians:Ordering: Sana Recinosending: Sammie Ann To: Maya Barron Reviewed by Maya Barron MD on 08/25; All test results are final unless otherwise noted. Rapid Strep [facility] Ordered by Maya Barron MD on 08/15/2020 [address] [place], [address] Collected: 08/15/2020 Reported: 08/15/2020 11:47 tel :[phone] strep antigen normal (negative) N (Normal) Reviewed by Maya Barron MD on 08/15; All test results are final unless otherwise noted. Urinalysis w/out microscopy [facility] Ordered by Maya Barron MD on 08/15/2020 [address] [place], [address] Specimen Source: Urine Collected: 08/15/2020 Reporte d: 08/15/2020 11:03 tel:[phone] bilirubin normal (neg) N (Normal) blood normal [...] unless otherwise noted. Extended hours FLU/COV2 NAAT [facility] Ordered by Maya Barron MD on 08/15/2020 Collected: 08/15/2020 Reported: 08/15/2020 15:55 Extended hours FLU/COV2 NAAT See Note None Note: TNPNo Reportable ResultLTNPNo Repo rtable [id number] NOTES See Note None Note: GEORGIANA PICKARD IN OTHER NAME IN MEDICAL RECORD Reviewed by Maya Barron MD on 08/16; All test results are final unless otherwise noted. Reported Physicians [facility] Ordered by Maya Barron MD on 08/15/2020 Collected: 08/15/2020 Reported: 08/15/2020 15:55 Reported Physicians See Note None Note: Reported Physicians:Ordering: Maya AlvarengaAttending: Maya Barron Reviewed by Maya Barron MD on 08/16; All test results are final unless otherwise noted. Sweta Raquel SARS/FLU [facility] Ordered by Maya Barron MD on 08/15/2020 Collected: 08/15/2020 Reported: 08/15/2020 15:55 Sweta Raquel SARS/FLU See Note None Note: Sweta Raquel is a rapid, automated q ualitative anddifferentiation of Influenza type A,B and OUHA-KRN-4CJKM-RT-PCR testNORMAL VALUE IS "NOT DETECTED".Limitations of the sweta raquel Influenza A/B & PKNZ-EQD-0jpwkg method.Modifications to manufacturers recommendation and proceduresmay alter performance of the test.Negative results do not preclude Influenza A,B or SARS- FWW3clqmrjmrls and should not be used as the sole basis fortreatment or other management decisions. Results from theLayerBoombas Raquel Influenza A/B & COV2 should be [...] out diseases caused by other bacterialor viral pathogens.17346-0DPAK-tjw CoV RNA Resp Ql ТАТЬЯНА+probeLNNSARS SARS-COV-2 NOT [id number]-YTG-6 NOT GPQURLTF15865-5RNHIL RNA Resp Ql ТАТЬЯНА+probeLNNFLUAInfluenza A Not [id number] A Not Vvfuvvno23980-1HJXFA RNA Resp Ql ТАТЬЯНА+probeLNNINBInfluenza B Not [id number] B Not Detected NOTES See Note None Note: GEORGIANA PICKARD IN OTHER NAME IN MEDICAL RECORD Reviewed by Maya Barron MD on 08/18; All test results are final unless otherwise noted. Throat culture [facility] Ordered by Maya Barron MD on 08/15/2020 Collected: 08/15/2020 Reported: 08/17/2020 06:37 Throat culture results Normal Deisy None Reviewed by Maya Barron MD on 08/18; All test results are final unless otherwise noted. Reported Physicians [facility] Ordered by Maya Barron MD on 08/15/2020 Collected: 08/15/2020 Reported: 08/17/2020 06:37 Reported Physicians See Note None Note: Reported Physicians:Ordering: Maya AlvarengaAttending: Maya Barron Reviewed by Maya Barron MD on 08/18; All test results are final unless otherwise noted. GCAMP [facility] Ordered by Cat Gutierrez RPA on 08/09/2020 Collected: 08/09/2020 Reported: 08/11/2020 06:52 C trach rRNA XXX Ql ТАТЬЯНА+probe See Note (NOT DETECTED) None Note: NOT DETECTEDNOT [id number] 6NOT DETECTEDResponsible Observer: C.Trach RNA Chlamydia trachomatis DNA-ТАТЬЯНА 63251930 913.9900 ([facility]) N gonorrhoea rRNA XXX Ql ТАТЬЯНА+probe See Note (NOT DETECTED) None Note: NOT DETECTEDNOT [id number] 6NOT DETECTEDResponsible Observer: GC RNA Neisseria gonorrhoeae DNA -ТАТЬЯНА [id number] 913.9905 ([facility]) Chlamydia/GC DNA Note SEE NOTE None Note: The analytical performance charact eristics of thisassay, when used to test SurePath(TM) specimens have beendetermined by [facility]. The modifications havenot been cleared or approved by the FDA. This assay hasbeen validated pursuant to the CLIA regulations and isused for clinical purposes.For additional information, please refer tohttps://education.[employer]/faq/QQA184(This link is being provided for information/educational purposes only.)THIS TEST WAS PERFORMED AT:[facility] [address]CLAUDY ONEILLesponsible Observer: GC/Chlam Note Chlamydia/GC DNA Note [id number] 913.9907 (A) NOTES See Note None Note: PICKARD:IN OTHER NAME IN MEDICAL RECORD Reviewed by Cat Gutierrez RPA on 08/12; All test results are final unless otherwise noted. Reported Physicians [facility] Ordered by Cat Gutierrez RPA on 08/09/2020 Collected: 08/09/2020 Reported: 08/11/2020 06:52 Reported Physicians See Note None Note: Reported Physicians:Ordering: Atte ndcristiane: Rigo Gutierrez To: Maya Barron Reviewed by Cat Gutierrez RPA on 08/12; All test results are final unless otherwise noted. AFFIRM [facility] Ordered by Cat Gutierrez RPA on 08/09/2020 Collected: 08/09/2020 Reported: 08/11/2020 06:52 Dionna species DNA Probe NOT DETECTED (NOT DETECTED) None Note: THIS TEST WAS PERFORMED AT:[employer] [place] [address] [address]QCIOOGCLAUDY ONEILLesponsible Observer: Dionna DNA Dionna species DNA Probe [id number] 913.2350 ([employer] [place]) Gardnerella DNA Probe DETECTED (NOT DETECTED) H (High) Note: Increased levels of G. vaginalis m ay not be significantin the absence of signs and symptoms of bacterialvaginosis.Responsible Observer: Gardnerella DNA Gardnerella DNA Probe [id number] 913.2345 ([employer] [place]) Trichomonas DNA Probe NOT DETECTED (NOT DETECTED) None Note: Responsible Observer: Trichomonas DNA Trichomonas DNA Probe [id number] 913.2340 ([facility]) NOTES See Note None Note: PICKARD:IN OTHER NAME IN MEDICAL RECORD Reviewed on 08/11/2020; All test result s are final unless otherwise noted. Reported Physicians [facility] Ordered by Cat Gutierrez RPA on 08/09/2020 Collected: 08/09/2020 Reported: 08/11/2020 06:52 Reported Physicians See Note None Note: Reported Physicians:Ordering: Atte nding: Rigo Gutierrez To: Maya Barron Reviewed on 08/11/2020; All test result s are final unless otherwise noted. HPVI [facility] Ordered by Cat Gutierrez RPA on 08/09/2020 Collected: 08/09/2020 Reported: 08/15/2020 06:53 Thin Prep Vag See Note None Note: See scanned reportSee scanned repo rtLSee scanned reportResponsible Observer: TP w/HPV if ASC Thinprep w/HPV if ASCUS 805.1454 ([facility]) NOTES See Note None Note: JFH67-52Azyusecuzz Technique: BRUS H-SPATULABody Site: CERVIX Reviewed by Cat Gutierrez RPA on 08/15; All test results are final unless otherwise noted. Reported Physicians [facility] Ordered by Cat Gutierrez RPA on 08/09/2020 Collected: 08/09/2020 Reported: 08/15/2020 06:53 Reported Physicians See Note None Note: Reported Physicians:Ordering: Atte oralia: Rigo Gutierrez To: Maya Barron Reviewed by Cat Gutierrez RPA on 08/15; All test results are final unless otherwise noted. MEDMATCH [facility] Ordered by Cat Gutierrez RPA on 08/09/2020 Collected: 08/09/2020 Reported: 08/13/2020 15:56 MEDMATCH See scanned report None Note: Responsible Observer: MEDMATCH MED MATCH 910.57513 ([employer] [place]) Reviewed by Cat Gutierrez RPA on 08/14; All test results are final unless otherwise noted. Reported Physicians [facility] Ordered by Cat Gutierrez RPA on 08/09/2020 Collected: 08/09/2020 Reported: 08/13/2020 15:56 Reported Physicians See Note None Note: Reported Physicians:Ordering: Atte oralia: Rigo Gutierrez To: Maya Barron Reviewed by Cat Gutierrez RPA on 08/14; All test results are final unless otherwise noted. ADD ON MICROSCOPIC [facility] Ordered by Cat Gutierrez RPA on 08/09/2020 Collected: 08/09/2020 Reported: 08/09/2020 12:23 ADD ON MICROSCOPIC See Note (0-5) H (High) Note: NOTES OTHER/NOT INTERPRETED Bacteria UrnS Ql Micro SMALL AMOUNT Bacteria UrnS Ql Micro SMALL AMOUNT Bacteria UrnS Ql Micro L Bacteria UrnS Ql Micro Bacteria UrnS Ql Micro Bacteria UrnS Ql Micro Bacteria UrnS Ql Micro [id number] Bacteria UrnS Ql Micro Bacteria UrnS Ql [...] Ql Micro Mucous Threads UrnS Ql Micro [id number] Mucous Threads UrnS Ql Micro Mucous Threads UrnS Ql Micro MODERATE AMOUNT WBC # Ur Manual 5-8 @08/09/20 1210: UA W/ MICRO added. RFLXG = UMIC.Method of Collection:: Clean CatchResponsible Observer: WBC WBC 300.5000 (A) Reviewed by Cat Gutierrez RPA on 08/12; All test results are final unless otherwise noted. Reported Physicians [facility] Ordered by Cat Gutierrez RPA on 08/09/2020 Collected: 08/09/2020 Reported: 08/10/2020 17:47 Reported Physicians See Note None Note: Reported Physicians:Ordering: Atte nding: Rigo Gutierrez To: Maya Barron Reviewed by Cat Gutierrez RPA on 08/12; All test results are final unless otherwise noted. URINALYSIS [facility] Ordered by Cat Gutierrez RPA on 08/09/2020 Collected: 08/09/2020 Reported: 08/09/2020 12:23 Urobilinogen Ur Ql See Note (0.2-1 EU/dl) None Note: 1 EU/dl1 EU/[id number] EU/dlRe sponsible Observer: UROBILINOGEN UROBILINOGEN 300.4500 (C) RBC # Ur Strip NEGATIVE (NEGATIVE) None Note: Responsible Observer: BLOOD BLOOD 300.4650 (C) Prot Ur Ql Strip See Note (NEGATIVE) None Note: [id number] ble Observer: PROTEIN PROTEIN 300.3750 (C) Ketones Ur Ql Strip See Note (NEGATIVE) None Note: [id number] ble Observer: KETONE KETONE 300.3900 (C) Bilirub Ur Ql Strip.auto See Note (NEGATIVE) None Note: [id number] EResponsible Observer: BILIRUBIN BILIRUBIN 300.4550 (C) Glucose Ur Strip.auto-mCnc NEGATIVE (NEGATIVE) None Note: Responsible Observer: GLUCOSE GLUC OSE 300.3850 (C) Appearance Ur See Note (CLEAR) None Note: CLEARCLEARLCLEARResponsible Observ er: APPEARANCE APPEARANCE 300.3400 (A) Color Ur See Note None Note: DARK YELLOWDARK YELLOWLDARK YELLOW Responsible Observer: COLOR COLOR 300.3300 (A) Leukocyte esterase Ur Ql Strip See Note (NEGATIVE) None Note: [id number]@DO MICR O!!!!Responsible Observer: LEUKOCYTES LEUKOCYTES 300.3575 (C) Nitrite Ur Ql Strip See Note (NEGATIVE) None Note: [id number] EResponsible Observer: NITRITE NITRITE 300.3650 (B) pH [...] are final unless otherwise noted. Urine culture [facility] Ordered by Cat Gutierrez RPA on 08/09/2020 Collected: 08/09/2020 Reported: 08/10/2020 08:33 Bacteria Ur Cult See Note None Note: NGNo growth.L1NG Reviewed by Cat Gutierrez RPA on 08/14; All test results are final unless otherwise noted. HCV RFX ТАТЬЯНА [facility] Ordered by Cat Gutierrez RPA on 08/09/2020 Collected: 08/09/2020 Reported: 08/10/2020 17:47 HCV Ab Ser Ql See Note (NON-REACTIVE) None Note: HMZ-SNVVZLBGEEQ-[id number] 7NON-REACTIVEResponsible Observer: HEP C ANTIBODY Hepatitis C Antibody 82562581 914.8305 ([employer] [place]) HCV RNA Qualitative (ТАТЬЯНА) 0.54 (<1.00) None Note: HCV antibody was non-reactive. The re is no laboratoryevidence of HCV infection.In most cases, no further action is required. However,if recent HCV exposure is suspected, a test for HCV RNA(test code 56543) is suggested.For additional information please refer tohttp://education.[employer]/faq/DKI03r1(This link is being provided for informational/educational purposes only.)THIS TEST WAS PERFORMED AT:[facility] [address]OSEAS MEANSMDResponsible Observer: SIG TO C/O SIGNAL TO CUTOFF [id number] 914.0652 ([employer] [place]) NOTES See Note None Note: Patient Street Address: [address] [place] [address] [address] [place] [facility] Zip Code: [address]Mwfjnit Reviewed by Cat Gutierrez RPA on 08/12; All test results are final unless otherwise noted. Reported Physicians [facility] Ordered by Cat Gutierrez RPA on 08/09/2020 Collected: 08/09/2020 Reported: 08/10/2020 17:47 Reported Physicians See Note None Note: Reported Physicians:Ordering: Jannet barton: Rigo Gutierrez To: Maya Barron Reviewed by Cat Gutierrez RPA on 08/12; All test results are final unless otherwise noted. Type and Screen [facility] Ordered by Cat Gutierrez RPA [...] are final unless otherwise noted. Reported Physicians [facility] Ordered by Cat Gutierrez RPA on 08/09/2020 Collected: 08/09/2020 Reported: 08/09/2020 12:39 Reported Physicians See Note None Note: Reported Physicians:Ordering: Cat ConwayAttending: Rigo Gutierrez To: Maya Barron Reviewed by Cat Gutierrez RPA on 08/10; All test results are final unless otherwise noted. Varicella-Zoster IgG Antibody [facility] Ordered by Cat Gutierrez RPA [...] Antibody Immunity Screen, ACIF.THIS TEST WAS PERFORMED AT:[facility] [address]RMOAHL ME RATI,MDResponsible Observer: VARICELLA IGG Varicella-Zoster IgG Antibody 13716540 913.8119 ([employer] [place]) NOTES See Note None Note: Patient Street Address: [facility] [address]Patient City: [place] Zip Code: [address] Reviewed by Cat Gutierrez RPA on 08/12; All test results are final unless otherwise noted. CBC [facility] Ordered by Cat Gutierrez RPA [...] Auto See Note (0-2) N (Normal) Note: [id number] Ob fountain server: IG% IG% 100.1375 (B) Hct VFr [...] results are final unless otherwise noted. [facility] Ordered by Cat Gutierrez RPA on 08/09/2020 Collected: 08/09/2020 Reported: 08/09/2020 14:24 TSH SerPl DL<=0.005 mIU/L-aCnc 1.18 MicroInternationalUnitsPerMilliLiter_[Arbitrary_Con (0.35-5. 50) N (Normal) Note: Responsible Observer: TSH TSH 600 .7055 (D) Reviewed by Cat Gutierrez RPA on 08/14; All test results are final unless otherwise noted. Lead (Venous) Wh.Bld [facility] Ordered by Cat Gutierrez RPA on 08/09/2020 Collected: 08/09/2020 Reported: 08/10/2020 17:47 Lead Bld-sCnc <1 (<5) None Note: See Note 1Note 1This test was faith granados and its analytical performancecharacteristics have been determined by [facility]. It has not been cleared or approved by theA. This assay has been validated pursuant to the CLIAregulations and is used for clinical purposes.THIS TEST WAS PERFORMED AT:[facility] [facility] [address]XYZJVGCLAUDY ONEILLesponsible Observer: Lead, WB Lead, Whole Blood [id number] 913.4282 ([facility]) NOTES See Note None Note: Patient Street Address: [address] [place] [address] [address]Patient City: [place] [facility] Zip Code: [address]Duvnsmc Reviewed by Cat Gutierrez RPA on 08/14; All test results are final unless otherwise noted. ncPN REF [facility] Ordered by Cat Gutierrez RPA on 08/09/2020 Collected: 08/09/2020 Reported: 08/13/2020 15:26 T pallidum Ab Ser Ql Aggl See Note (Nonreactive) None Note: [id number] onreactiveResponsible Observer: TP-PA Treponema pallidum Ab (TP-PA) 41424200 421.9227 ([facility]) HIV1 RNA SerPl Ql ТАТЬЯНА+probe See Note None Note: TNPNo Reportable ResultLTNPNo Repo rtable ResultLLEP.LIVENTNPResponsible Observer: HIV 1 RNA, QL T HIV 1 RNA, QL TMA [id number] 908.0254 ([facility]) HBV surface Ag SerPl Ql IA See Note (NON-REACTIVE) None Note: AOD-FZILCWEZSVQ-[id number] 5NON-REACTIVEResponsible Observer: HBSAG Hepatitis B Surface Antigen 01294434 910.2004 ([facility]) RUBV IgG SerPl IA-aCnc 1.76 None Note: Index Interpretatio n ----- <0.90 Not consistent with immunity 0.90-0.99 Equivocal > or = 1.00 Consistent with immunityThe presence of rubella IgG antibody suggestsimmunization or past or current infection withrubella virus.THIS TEST WAS PERFORMED AT:[facility] [address]RVFYNT MERATI,MDResponsible Observer: Rubella IgG Ab Rubella IgG Ab [id number] 911.2840 ([facility]) HIV1 Ab SerPlBld Ql IA.rapid See Note None Note: TNPNo Reportable ResultLTNPNo Repo rtable ResultLLEP.LIVENTNPResponsible Observer: HIV 1 AB HIV 1 AB [id number] 908.0250 ([facility]) HBsAg Confirmation See Note None Note: TNPNo Reportable ResultLTNPNo Repo rtable ResultLLEP.LIVENTNPResponsible Observer: HBsAg Confirm HBsAg Confirmation [id number] 910.2006 ([facility]) HIV (1&2) Screen, 4th Gen [...] for this purpose.For additional information please refer tohttp://education.[employer]/faq/YXB924(This link is being provided for informational/educational purposes only.)The performance of this assay has not been clinicallyvalidated in patients less than 2 years old.THIS TEST WAS PERFORMED AT:[facility] [address]LMJVPK MERATICLAUDYesponsible Observer: HIV ABS HIV (1&2) Screen, 4th Gen [id number] 908.6338 ([facility]) Reviewed by Cat Gutierrez RPA on 08/14; All test results are final unless otherwise noted. Reported Physicians [facility] Ordered by Cat Gutierrez RPA on 08/09/2020 Collected: 08/09/2020 Reported: 08/13/2020 15:27 Reported Physicians See Note None Note: Reported Physicians:Ordering: Atte nding: Rigo Gutierrez To: Maya Barron Reviewed by Cat Gutierrez RPA on 08/14; All test results are final unless otherwise noted. BHCG, QUANTITATIVE [facility] Ordered by Cat Gutierrez RPA on 08/08/2020 Collected: 08/08/2020 Reported: 08/08/2020 11:53 B-HCG [facility] [address] MilliInternationalUnitsPerMilliLiter_[Arbitrary_Con (0-10) H (High) Note: @Instrument will [...] are final unless otherwise noted. Reported Physicians [facility] Ordered by Cat Gutierrez RPA on 08/08/2020 Collected: 08/08/2020 Reported: 08/08/2020 11:54 Reported Physicians See Note None Note: Reported Physicians:Ordering: Atte oralia: Rigo Gutierrez To: Maya Barron Reviewed by Cat Gutierrez RPA on 08/08; All test results are final unless otherwise noted. CBC W AUTO DIFF [facility] Ordered by Cat Gutierrez RPA [...] Auto See Note (0-2) N (Normal) Note: 0.10.9R99427539518.1Responsible Ob fountain server: IG% IG% 100.1375 (B) Hct VFr [...] test results are final unless otherwise noted. [facility] Ordered by Cat Gutierrez RPA on [...] are final unless otherwise noted. Reported Physicians [facility] Lab Ordered by Cat Gutierrez RPA on 08/01/2020 Collected: 08/01/2020 Reported: 08/01/2020 02:26 Reported Physicians See Note None Note: Reported Physicians:Ordering: Aj Ferreiraending: Jos Rivas To: Maya Barron Reviewed by Cat Gutierrez RPA on 08/01; All test results are final unless otherwise noted. BHCG, QUANTITATIVE [facility] Lab Ordered by Cat Gutierrez RPA on 08/01/2020 Collected: 08/01/2020 Reported: 08/01/2020 02:26 B-HCG [facility] [address] MilliInternationalUnitsPerMilliLiter_[Arbitrary_Con (0-10) H (High) Note: @Instrument will [...] are final unless otherwise noted. Reported Physicians [facility] Ordered by Cat Gutierrez RPA on 08/01/2020 Collected: 08/01/2020 Reported: 08/01/2020 02:26 Reported Physicians See Note None Note: Reported Physicians:Ordering: Aj Ferreiraending: Jos Rivas To: Maya Barron Reviewed by Cat Gutierrez RPA on 08/01; All test results are final unless otherwise noted. Type and Screen [facility] Ordered by Cat Gutierrez RPA [...] are final unless otherwise noted. Reported Physicians [facility] Ordered by Cat Gutierrez RPA on 08/01/2020 Collected: 08/01/2020 Reported: 08/01/2020 06:03 Reported Physicians See Note None Note: Reported Physicians:Ordering: Aj Ferreiraending: Jos Rivas To: Maya Barron Reviewed by Cat Gutierrez RPA on 08/01; All test results are final unless otherwise noted. ADD ON MICROSCOPIC [facility] Ordered by Cat Gutierrez RPA on 08/01/2020 Collected: 08/01/2020 Reported: 08/01/2020 01:01 ADD ON MICROSCOPIC See Note (0-5) None Note: NOTES OTHER/NOT INTERPRETED Bacteria UrnS Ql Micro MODERATE AMOUNT Bacteria UrnS Ql Micro MODERATE AMOUNT Bacteria UrnS Ql Micro L Bacteria UrnS Ql Micro Bacteria UrnS Ql Micro Bacteria UrnS Ql Micro Bacteria UrnS Ql Micro [id number] Bacteria UrnS Ql Micro Bacteria UrnS Ql [...] 0048: UA W/ MICRO added. RFLXG = IC CIF.Method of Collection:: VoidedResponsible Observer: RBC RBC 300.4900 (A) Reviewed by Cat Gutierrez RPA on 08/01; All test results are final unless otherwise noted. Reported Physicians [facility] Ordered by Cat Gutierrez RPA on 08/01/2020 Collected: 08/01/2020 Reported: 08/01/2020 01:01 Reported Physicians See Note None Note: Reported Physicians:Ordering: Aj Ferreiraending: Jos Rivas To: Maya Barron Reviewed by Cat Gutierrez RPA on 08/01; All test results are final unless otherwise noted. UA W/ CULTURE IF ABNORMAL [facility] Ordered by Cat Gutierrez RPA on 08/01/2020 Collected: 08/01/2020 Reported: 08/01/2020 01:01 Urobilinogen Ur Ql See Note (0.2-1 EU/dl) None Note: 0.2 EU/dl0.2 EU/[id number] E U/dlResponsible Observer: UROBILINOGEN UROBILINOGEN 300.4500 (C) RBC # Ur Strip SMALL (NEGATIVE) None Note: @DO MICRO!!!!Responsible Observer: BLOOD BLOOD 300.4652 (C) Prot Ur Ql Strip See Note (NEGATIVE) None Note: [id number] EResponsible Observer: PROTEIN PROTEIN 300.3750 (C) Ketones Ur Ql Strip See Note (NEGATIVE) None Note: 15 mg/dL15 mg/[id number] mg/d LResponsible Observer: KETONE KETONE 300.3900 (C) Bilirub Ur Ql Strip.auto See Note (NEGATIVE) None Note: [id number] EResponsible Observer: BILIRUBIN BILIRUBIN 300.4550 (C) Glucose Ur Strip.auto-mCnc NEGATIVE (NEGATIVE) None Note: Responsible Observer: GLUCOSE GLUC OSE 300.3850 (C) Appearance Ur See Note (CLEAR) None Note: CLEARCLEARLCLEARResponsible Observ er: APPEARANCE APPEARANCE 300.3400 (A) Color Ur See Note None Note: YELLOWYELLOWLYELLOWResponsible Obs erver: COLOR COLOR 300.3330 (A) Leukocyte esterase Ur Ql Strip See Note (NEGATIVE) None Note: [id number]@DO MICR O!!!!A Culture has been added to this specimen per established criteriaResponsible Observer: LEUKOCYTES LEUKOCYTES 300.3576 (C) Nitrite Ur Ql Strip See Note (NEGATIVE) None Note: [id number] EResponsible Observer: NITRITE NITRITE 300.3652 (B) pH [...] are final unless otherwise noted. Urine culture [facility] Ordered by Cat Gutierrez RPA on 08/01/2020 Collected: 08/01/2020 Reported: 08/02/2020 07:41 Urine culture result See Note None Note: Greater than 100,000 CFU/MLLactoba cilli no senst done NOTES See Note None Note: @08/01/20 0101: Urine culture adde d. RFLXG = CULT.ADD. Reviewed by Cat Gutierrez [facility] on 08/02; All test results are final unless otherwise noted. Reported Physicians [facility] Ordered by Cat Gutierrez [facility] on 08/01/2020 Collected: 08/01/2020 Reported: 08/02/2020 07:41 Reported Physicians See Note None Note: Reported Physicians:Ordering: Cristino FerreiraAttending: Jos Rivas To: Maya Barron Reviewed by Cat Gutierrez [facility] on 08/02; All test results are final unless otherwise noted. BHCG, QUANTITATIVE [facility] Ordered by Cat Gutierrez [facility] on 07/31/2020 Collected: 07/31/2020 Reported: 07/31/2020 16:53 [facility] [address] MilliInternationalUnitsPerMilliLiter_[Arbitrary_Con (0-10) H (High) Note: @Instrument will [...] are final unless otherwise noted. Reported Physicians [facility] Ordered by Cat Gutierrez RPA on 07/31/2020 Collected: 07/31/2020 Reported: 07/31/2020 16:53 Reported Physicians See Note None Note: Reported Physicians:Ordering: Atte nding: Cat Gutierrez Reviewed by Cat Gutierrez RPA on 08/01; All test results are final unless otherwise noted. ADD ON MICROSCOPIC [facility] Ordered by Cat Gutierrez RPA on 07/27/2020 Collected: 07/27/2020 Reported: 07/27/2020 21:36 ADD ON MICROSCOPIC See Note (0-5) None Note: NOTES OTHER/NOT INTERPRETED Bacteria UrnS Ql Micro SMALL AMOUNT Bacteria UrnS Ql Micro SMALL AMOUNT Bacteria UrnS Ql Micro L Bacteria UrnS Ql Micro Bacteria UrnS Ql Micro Bacteria UrnS Ql Micro Bacteria UrnS Ql Micro [id number] Bacteria UrnS Ql Micro Bacteria UrnS Ql [...] are final unless otherwise noted. Reported Physicians [facility] Ordered by Cat Gutierrez RPA on 07/27/2020 Collected: 07/27/2020 Reported: 07/27/2020 21:37 Reported Physicians See Note None Note: Reported Physicians:Ordering: Daquan BustamanteAttending: Daquan GoodCopyifan To: Maya Barron Reviewed by Cat Gutierrez RPA on 07/28; All test results are final unless otherwise noted. UA W/ CULTURE IF ABNORMAL [facility] Ordered by Cat Gutierrez RPA on 07/27/2020 Collected: 07/27/2020 Reported: 07/27/2020 21:36 Urobilinogen Ur Ql See Note (0.2-1 EU/dl) None Note: 0.2 EU/dl0.2 EU/[id number] E U/dlResponsible Observer: UROBILINOGEN UROBILINOGEN 300.4500 (C) RBC # Ur Strip NEGATIVE (NEGATIVE) None Note: Responsible Observer: BLOOD BLOOD 300.4652 (C) Prot Ur Ql Strip See Note (NEGATIVE) None Note: [id number] EResponsible Observer: PROTEIN PROTEIN 300.3750 (C) Ketones Ur Ql Strip See Note (NEGATIVE) None Note: [id number] EResponsible Observer: KETONE KETONE 300.3900 (C) Bilirub Ur Ql Strip.auto See Note (NEGATIVE) None Note: [id number] EResponsible Observer: BILIRUBIN BILIRUBIN 300.4550 (C) Glucose Ur Strip.auto-mCnc NEGATIVE (NEGATIVE) None Note: Responsible Observer: GLUCOSE GLUC OSE 300.3850 (C) Appearance Ur See Note (CLEAR) None Note: CLEARCLEARLCLEARResponsible Observ er: APPEARANCE APPEARANCE 300.3400 (A) Color Ur See Note None Note: YELLOWYELLOWLYELLOWResponsible Obs erver: COLOR COLOR 300.3330 (A) Leukocyte esterase Ur Ql Strip See Note (NEGATIVE) None Note: [id number]@DO MICR O!!!!A Culture has been added to this specimen per established criteriaResponsible Observer: LEUKOCYTES LEUKOCYTES 300.3576 (C) Nitrite Ur Ql Strip See Note (NEGATIVE) None Note: [id number] EResponsible Observer: NITRITE NITRITE 300.3652 (B) pH [...] are final unless otherwise noted. Urine culture [facility] Ordered by Cat Gutierrez RPA on 07/27/2020 Collected: 07/27/2020 Reported: 07/29/2020 07:36 Urine culture result 50,000 CFU/ML Lactobacilli no senst done None NOTES See Note None Note: @07/27/202136: Urine culture adde d. RFLXG = CULT.ADD. Reviewed by Cat Gutierrez RPA on 07/31; All test results are final unless otherwise noted. Reported Physicians [facility] Ordered by Cat Gutierrez RPA on 07/27/2020 Collected: 07/27/2020 Reported: 07/29/2020 07:37 Reported Physicians See Note None Note: Reported Physicians:Ordering: Daquan BustamanteAttending: Daquan GoodCopyifan To: Maya Barron Reviewed by Cat Gutierrez RPA on 07/31; All test results are final unless otherwise noted. Type and Screen [facility] Ordered by Cat Gutierrez RPA [...] are final unless otherwise noted. Reported Physicians [facility] Ordered by Cat Gutierrez RPA on 07/27/2020 Collected: 07/27/2020 Reported: 07/27/2020 20:48 Reported Physicians See Note None Note: Reported Physicians:Ordering: Daquan BustamanteAttending: Daquan GoodCopyifan To: Maya Barron Reviewed by Cat Gutierrez RPA on 07/28; All test results are final unless otherwise noted. CMP [facility] Ordered by Cat Gutierrez RPA [...] are final unless otherwise noted. Reported Physicians [facility] Ordered by Cat Gutierrez RPA on 07/27/2020 Collected: 07/27/2020 Reported: 07/27/2020 20:37 Reported Physicians See Note None Note: Reported Physicians:Ordering: Daquan BustamanteAttending: Daquan GoodCopy To: Maya Barron Reviewed by Cat Gutierrez RPA on 07/28; All test results are final unless otherwise noted. BHCG, QUANTITATIVE [facility] Ordered by Cat Gutierrez [facility] on 07/27/2020 Collected: 07/27/2020 Reported: 07/27/2020 22:08 [facility] 62[facility] MilliInternationalUnitsPerMilliLiter_[Arbitrary_Con (0-10) H (High) Note: [...] are final unless otherwise noted. Reported Physicians [facility] Ordered by Cat Gutierrez [facility] on 07/27/2020 Collected: 07/27/2020 Reported: 07/27/2020 22:08 Reported Physicians See Note None Note: Reported Physicians:Ordering: Daquan BustamanteAttending: Ariella Good To: Maya Barron Reviewed by Cat Gutierrez [facility] on 07/28; All test results are final unless otherwise noted. CBC W AUTO DIFF [facility] Ordered by Cat Brenda MID [...] Auto See Note (0-2) N (Normal) Note: 0.20.8L23812161424.2Responsible Ob fountain server: IG% IG% 100.1375 (B) Hct VFr [...] are final unless otherwise noted. Reported Physicians [facility] Ordered by Cat Gutierrez RPA on 07/27/2020 Collected: 07/27/2020 Reported: 07/27/2020 20:11 Reported Physicians See Note None Note: Reported Physicians:Ordering: Daquan BustamanteAttending: Ariella Good To: Maya Barron Reviewed by Cat Gutierrez RPA on 07/28; All test results are final unless otherwise noted. BHCG, QUANTITATIVE [facility] Ordered by Maya Barron MD on 07/26/2020 Collected: 07/26/2020 Reported: 07/26/2020 16:48 [facility] 4155 MilliInternationalUnitsPerMilliLiter_[Arbitrary_Con (0-10) H (High) Note: @Instrument [...] are final unless otherwise noted. Reported Physicians [facility] Ordered by Maya Barron MD on 07/26/2020 Collected: 07/26/2020 Reported: 07/26/2020 16:48 Reported Physicians See Note None Note: Reported Physicians:Ordering: Maya AlvarengaAttending: Maya Barron Reviewed by Maya Barron MD on 07/27; All test results are final unless otherwise noted. Extended hours FLU/COV2 NAAT [facility] Ordered by Bandar Cleveland PA-C on 07/25/2020 Collected: 07/25/2020 Reported: 07/25/2020 18:47 Extended hours FLU/COV2 NAAT See Note None Note: TNPNo Reportable ResultLTNPNo Repo rtable HnyrcoX2XAJ Reviewed by Bandar Cleveland PA-C on ; All test results are final unless otherwise noted. Reported Physicians [facility] Ordered by Bandar Cleveland PA-C on 07/25/2020 Collected: 07/25/2020 Reported: 07/25/2020 18:47 Reported Physicians See Note None Note: Reported Physicians:Ordering: Janice Wilsonending: Kami Cleveland To: Health, Public Reviewed by Bandar Cleveland PA-C on 1; All test results are final unless otherwise noted. Sweta Raquel SARS/FLU [facility] Ordered by Bandar Cleveland PA-C on 07/25/2020 Collected: 07/25/2020 Reported: 07/25/2020 18:47 Sweta Raquel SARS/FLU See Note None Note: Sweta Raquel is a rapid, automated q ualitative anddifferentiation of Influenza type A,B and OPQJ-FUA-3SNWH-RT-PCR testNORMAL VALUE IS "NOT DETECTED".Limitations of the sweta raquel Influenza A/B & RJCW-IPO-4voiza method.Modifications to manufacturers recommendation and proceduresmay alter performance of the test.Negative results do not preclude Influenza A,B or SARS- VMJ6wqsauqfpan and should not be used as the [...] out diseases caused by other bacterialor viral pathogens.82053-1NYEB-IhN-1 RNA Resp Ql ТАТЬЯНА+probeLNNOSNo O rganisms [id number] Organisms Detected Reviewed by Bandar Cleveland PA-C on ; All test results are final unless otherwise noted. Reported Physicians [facility] Ordered by Bandar Cleveland PA-C on 07/25/2020 Collected: 07/25/2020 Reported: 07/25/2020 18:47 Reported Physicians See Note None Note: Reported Physicians:Ordering: Janice Wilsonending: Kami Cleveland To: Health, Public Reviewed by Bandar Cleveland PA-C on ; All test results are final unless otherwise noted. CBC W AUTO DIFF [facility] Ordered by Maya Barron MD [...] Auto See Note (0-2) N (Normal) Note: [id number] Ob fountain server: IG% IG% 100.1375 (B) Hct VFr [...] are final unless otherwise noted. Reported Physicians [facility] Ordered by Maya Barron MD on 07/22/2020 Collected: 07/22/2020 Reported: 07/22/2020 02:00 Reported Physicians See Note None Note: Reported Physicians:Ordering: Hong LandaverdeAttending: Alon Douglas To: Maya Barron Reviewed by Maya Barron MD on 07/24; All test results are final unless otherwise noted. Extended hours FLU/COV2 NAAT [facility] Ordered by Maya Barron MD on 07/22/2020 Collected: 07/22/2020 Reported: 07/22/2020 01:29 Extended hours FLU/COV2 NAAT See Note None Note: TNPNo Reportable ResultLTNPNo Repo rtable SypgknQ6ZOQ Reviewed by Maya Barron MD on 07/24; All test results are final unless otherwise noted. Reported Physicians [facility] Ordered by Maya Barron MD on 07/22/2020 Collected: 07/22/2020 Reported: 07/22/2020 01:29 Reported Physicians See Note None Note: Reported Physicians:Ordering: Hong LandaverdeAttending: Alon Douglas To: Maya Barron Reviewed by Maya Barron MD on 07/24; All test results are final unless otherwise noted. UA W/ CULTURE IF ABNORMAL [facility] Ordered by Maya Barron MD on 07/22/2020 Collected: 07/22/2020 Reported: 07/22/2020 01:10 Urobilinogen Ur Ql See Note (0.2-1 EU/dl) None Note: 0.2 EU/dl0.2 EU/roC03819175124.2 E U/dlResponsible Observer: UROBILINOGEN UROBILINOGEN 300.4500 (C) RBC # Ur Strip NEGATIVE (NEGATIVE) None Note: Responsible Observer: BLOOD BLOOD 300.4652 (C) Prot Ur Ql Strip See Note (NEGATIVE) None Note: [id number] EResponsible Observer: PROTEIN PROTEIN 300.3750 (C) Ketones Ur Ql Strip See Note (NEGATIVE) None Note: [id number] EResponsible Observer: KETONE KETONE 300.3900 (C) Bilirub Ur Ql Strip.auto See Note (NEGATIVE) None Note: [id number] EResponsible Observer: BILIRUBIN BILIRUBIN 300.4550 (C) Glucose Ur Strip.auto-mCnc NEGATIVE (NEGATIVE) None Note: Responsible Observer: GLUCOSE GLUC OSE 300.3850 (C) Appearance Ur See Note (CLEAR) None Note: CLEARCLEARLCLEARResponsible Observ er: APPEARANCE APPEARANCE 300.3400 (A) Color Ur See Note None Note: YELLOWYELLOWLYELLOWResponsible Obs erver: COLOR COLOR 300.3330 (A) Leukocyte esterase Ur Ql Strip See Note (NEGATIVE) None Note: [id number] EResponsible Observer: LEUKOCYTES LEUKOCYTES 300.3576 (C) Nitrite Ur Ql Strip See Note (NEGATIVE) None Note: [id number] EResponsible Observer: NITRITE NITRITE 300.3652 (B) pH [...] are final unless otherwise noted. Reported Physicians [facility] Ordered by Maya Barron MD on 07/22/2020 Collected: 07/22/2020 Reported: 07/22/2020 01:11 Reported Physicians See Note None Note: Reported Physicians:Ordering: Hong LandaverdeAttending: Alon Douglas To: Maya Barron Reviewed by Maya Barron MD on 07/24; All test results are final unless otherwise noted. Sweta Raquel SARS/FLU [facility] Ordered by Maya Barron MD on 07/22/2020 Collected: 07/22/2020 Reported: 07/22/2020 01:29 Sweta Raquel SARS/FLU See Note None Note: Sweta Raquel is a rapid, automated q ualitative anddifferentiation of Influenza type A,B and DMWA-OXZ-8GUIL-RT-PCR testNORMAL VALUE IS "NOT DETECTED".Limitations of the sweta raquel Influenza A/B & YNZP-RCZ-7dsanj method.Modifications to manufacturers recommendation and proceduresmay alter performance of the test.Negative results do not preclude Influenza A,B or SARS- QGU0lmqyctgkgt and should not be used as the [...] out diseases caused by other bacterialor viral pathogens.86644-3GQIX-HmG-1 RNA Resp Ql ТАТЬЯНА+probeLNNOSNo O rganisms [id number] Organisms Detected Reviewed by Maya Barron MD on 07/24; All test results are final unless otherwise noted. Reported Physicians [facility] Ordered by Maya Barron MD on 07/22/2020 Collected: 07/22/2020 Reported: 07/22/2020 01:29 Reported Physicians See Note None Note: Reported Physicians:Ordering: Hong LandaverdeAttending: Alon Douglas To: Maya Barron Reviewed by Maya Barron MD on 07/24; All test results are final unless otherwise noted. Urine culture [facility] Ordered by Maya Barron MD on 07/19/2020 Collected: 07/19/2020 Reported: 07/21/2020 07:48 Bacteria Ur Cult See Note None Note: NGNo growth.L1NG Reviewed by Maya Barron MD on 07/21; All test results are final unless otherwise noted. Reported Physicians [facility] Ordered by Maya Barron MD on 07/19/2020 Collected: 07/19/2020 Reported: 07/21/2020 07:49 Reported Physicians See Note None Note: Reported Physicians:Ordering: Maya AlvarengaAttending: Maya Barron Reviewed by Maya Barron MD on 07/21; All test results are final unless otherwise noted. BHCG, QUANTITATIVE [facility] Ordered by Maya Barron MD [...] are final unless otherwise noted. Reported Physicians [facility] Ordered by Maya Barron MD on 07/17/2020 Collected: 07/17/2020 Reported: 07/17/2020 12:40 Reported Physicians See Note None Note: Reported Physicians:Ordering: Maya AlvarengaAttending: Maya Barron Reviewed by Maya Barron MD on 07/17; All test results are final unless otherwise noted. [employer] COVID-19 SCHOOL [facility] Ordered by Maya Barron MD [...] molecular test, if the virus mutates in [facility], Covid-19 may not be detected or may bedetected less predictably.ID NOW COVID-19 is intended for testing a swab directlywithout elution in viral transport media as dilution willresult in decreased detection of low positive samples thatare near the limit of detection of the test.SWAB SAMPLES ELUTED IN VTM ARE NOT APPROPRIATE FOR USE INTHIS TEST.NOSNo Organisms [id number] Organisms Detected Reviewed by Maya Barron MD on 05/31; All test results are final unless otherwise noted. Reported Physicians [facility] Ordered by Maya Barron MD on 05/31/2020 Collected: 05/31/2020 Reported: 05/31/2020 07:08 Reported Physicians See Note None Note: Reported Physicians:Ordering: Johnny HernándezAttending: Suzanne Cazares To: Maya Barron Reviewed by Maya Barron MD on 05/31; All test results are final unless otherwise noted. BHCG, QUANTITATIVE [facility] Ordered by Maya Barron MD on 05/26/2020 Collected: 05/26/2020 Reported: 05/26/2020 14:49 B-HCG [facility] 98855 MilliInternationalUnitsPerMilliLiter_[Arbitrary_Con (0-10) H (High) Note: @Instrument will [...] are final unless otherwise noted. Reported Physicians [facility] Ordered by Maya Barron MD on 05/26/2020 Collected: 05/26/2020 Reported: 05/26/2020 14:50 Reported Physicians See Note None Note: Reported Physicians:Ordering: Maya AlvarengaAttending: Maya Barron Reviewed by Maya Barron MD on 05/26; All test results are final unless otherwise noted. URINALYSIS [facility] Ordered by Maya Barron MD on 05/23/2020 Collected: 05/23/2020 Reported: 05/23/2020 17:19 Urobilinogen Ur Ql See Note (0.2-1 EU/dl) None Note: 0.2 EU/dl0.2 EU/[id number] E U/dlResponsible Observer: UROBILINOGEN UROBILINOGEN 300.4500 (C) RBC # Ur Strip NEGATIVE (NEGATIVE) None Note: Responsible Observer: BLOOD BLOOD 300.4650 (C) Prot Ur Ql Strip See Note (NEGATIVE) None Note: [id number] EResponsible Observer: PROTEIN PROTEIN 300.3750 (C) Ketones Ur Ql Strip See Note (NEGATIVE) None Note: [id number] EResponsible Observer: KETONE KETONE 300.3900 (C) Bilirub Ur Ql Strip.auto See Note (NEGATIVE) None Note: [id number] EResponsible Observer: BILIRUBIN BILIRUBIN 300.4550 (C) Glucose Ur Strip.auto-mCnc NEGATIVE (NEGATIVE) None Note: Responsible Observer: GLUCOSE GLUC OSE 300.3850 (C) Appearance Ur See Note (CLEAR) None Note: CLEARCLEARLCLEARResponsible Observ er: APPEARANCE APPEARANCE 300.3400 (A) Color Ur See Note None Note: YELLOWYELLOWLYELLOWResponsible Obs erver: COLOR COLOR 300.3300 (A) Leukocyte esterase Ur Ql Strip See Note (NEGATIVE) None Note: [id number] EResponsible Observer: LEUKOCYTES LEUKOCYTES 300.3575 (C) Nitrite Ur Ql Strip See Note (NEGATIVE) None Note: [id number] EResponsible Observer: NITRITE NITRITE 300.3650 (B) pH [...] are final unless otherwise noted. Urine culture [facility] Ordered by Maya Barron MD on 05/23/2020 Collected: 05/23/2020 Reported: 05/24/2020 09:24 Bacteria Ur Cult See Note None Note: NGNo growth.L1NG Reviewed by Maya Barron MD on 05/29; All test results are final unless otherwise noted. MEDMATCH [facility] Ordered by Maya Barron MD on 05/23/2020 Collected: 05/23/2020 Reported: 05/26/2020 17:09 MEDMATCH 1.000 (> or = 1.003) None Note: Responsible Observer: MEDMATCH MED MATCH 910.89126 ([facility]) Reviewed by Maya Barron MD on 05/29; All test results are final unless otherwise noted. Reported Physicians [facility] Ordered by Maya Barron MD on 05/23/2020 Collected: 05/23/2020 Reported: 05/26/2020 17:09 Reported Physicians See Note None Note: Reported Physicians:Ordering: Cara Alvarengaending: Maya Barron Reviewed by Maya Barron MD on 05/29; All test results are final unless otherwise noted. Varicella-Zoster IgG Antibody [facility] Ordered by Maya Barron MD [...] Antibody Immunity Screen, ACIF.THIS TEST WAS PERFORMED AT:[employer] [id number] ME RATI,MDResponsible Observer: VARICELLA IGG Varicella-Zoster IgG Antibody [id number] 678.4597 ([employer] [place]) NOTES See Note None Note: Patient Street Address: [facility] [address] [facility] Zip Code: [address] Reviewed by Maya Barron MD on 05/26; All test results are final unless otherwise noted. Reported Physicians [facility] Ordered by Maya Barron MD on 05/23/2020 Collected: 05/23/2020 Reported: 05/25/2020 17:11 Reported Physicians See Note None Note: Reported Physicians:Ordering: Cara Alvarengaending: Maya Barron Reviewed by Maya Barron MD on 05/26; All test results are final unless otherwise noted. CBC [facility] Ordered by Maya Barron MD [...] Auto See Note (0-2) N (Normal) Note: 0.20.0X81182460134.2Responsible Ob fountain server: IG% IG% 100.1375 (B) Hct VFr [...] results are final unless otherwise noted. TSH [facility] Ordered by Maya Barron MD on 05/23/2020 Collected: 05/23/2020 Reported: 05/23/2020 18:38 TSH SerPl DL<=0.005 mIU/L-aCnc 1.87 MicroInternationalUnitsPerMilliLiter_[Arbitrary_Con (0.35-5. 50) N (Normal) Note: Responsible Observer: TSH TSH 600 .7055 (D) Reviewed by Maya Barron MD on 05/29; All test results are final unless otherwise noted. Lead (Venous) Wh.Bld [facility] Ordered by Maya Barron MD on 05/23/2020 Collected: 05/23/2020 Reported: 05/25/2020 17:11 Lead Bld-sCnc <1 (<5) None Note: See Note 1Note 1This test was faith [employer] and its analytical performancecharacteristics have been determined by [employer]. It has not been cleared or approved by theA. This assay has been validated pursuant to the CLIAregulations and is used for clinical purposes.THIS TEST WAS PERFORMED AT:[employer] [address]NSSHNXCLAUDY ONEILLesponsible Observer: Lead, WB Lead, Whole Blood [id number] 917.1653 ([facility]) NOTES See Note None Note: Patient Street Address: [facility] [address]Patient [place]: [address] Reviewed by Maya Barron MD on 05/29; All test results are final unless otherwise noted. ncPN REF [facility] Ordered by Maya Barron MD on 05/23/2020 Collected: 05/23/2020 Reported: 05/27/2020 20:54 T pallidum Ab Ser Ql Aggl See Note (Nonreactive) None Note: [id number] onreactiveResponsible Observer: TP-PA Treponema pallidum Ab (TP-PA) 14496176 285.0280 ([facility]) HIV1 RNA SerPl Ql ТАТЬЯНА+probe See Note None Note: TNPNo Reportable ResultLTNPNo Repo rtable ResultLLEP.LIVENTNPResponsible Observer: HIV 1 RNA, QL T HIV 1 RNA, QL TMA [id number] 908.0254 ([facility]) HBV surface Ag SerPl Ql IA See Note (NON-REACTIVE) None Note: XFL-WEHXCYHJDUJ-[id number] 0NON-REACTIVEResponsible Observer: HBSAG Hepatitis B Surface Antigen [id number] 910.2004 ([facility]) RUBV IgG SerPl IA-aCnc 1.80 None Note: Index Interpretatio n ----- <0.90 Not consistent with Immunity 0.90-0.99 Equivocal > or = 1.00 Consistent with ImmunityThe presence of rubella IgG antibody suggestsimmunization or past or current infection withrubella virus.THIS TEST WAS PERFORMED AT:[employer] [address]YJMOGN MERATI,MDResponsible Observer: Rubella IgG Ab Rubella IgG Ab [id number] 911.2840 ([facility]) HIV1 Ab SerPlBld Ql IA.rapid See Note None Note: TNPNo Reportable ResultLTNPNo Repo rtable ResultLLEP.LIVENTNPResponsible Observer: HIV 1 AB HIV 1 AB [id number] 908.0250 ([facility]) HBsAg Confirmation See Note None Note: TNPNo Reportable ResultLTNPNo Repo rtable ResultLLEP.LIVENTNPResponsible Observer: HBsAg Confirm HBsAg Confirmation [id number] 910.2006 ([facility]) HIV (1&2) Screen, 4th Gen [...] for this purpose.For additional information please refer tohttp://education.[employer]/faq/VPT427(This link is being provided for informational/educational purposes only.)The performance of this assay has not been clinicallyvalidated in patients less than 2 years old.Responsible Observer: HIV ABS HIV (1&2) Screen, 4th Gen [id number] 908.0228 (I) Reviewed by Maya Barron MD on 05/29; All test results are final unless otherwise noted. Reported Physicians [facility] Ordered by Maya Barron MD on 05/23/2020 Collected: 05/23/2020 Reported: 05/27/2020 20:54 Reported Physicians See Note None Note: Reported Physicians:Ordering: Maya AlvarengaAttending: Maya Barron Reviewed by Maya Barron MD on 05/29; All test results are final unless otherwise noted. HCV RFX ТАТЬЯНА [facility] Ordered by Maya Barron MD on 05/23/2020 Collected: 05/23/2020 Reported: 05/25/2020 17:11 HCV Ab Ser Ql See Note (NON-REACTIVE) None Note: IAO-[id number] 7NON-REACTIVEResponsible Observer: HEP C ANTIBODY Hepatitis C Antibody [id number] 914.8305 ([employer] [place]) HCV RNA Qualitative (ТАТЬЯНА) 0.59 (<1.00) None Note: HCV antibody was non-reactive. The re is no laboratoryevidence of HCV infection.In most cases, no further action is required. However,if recent HCV exposure is suspected, a test for HCV RNA(test code 67573) is suggested.For additional information please refer tohttp://education.[employer]/faq/TCO47o1(This link is being provided for informational/educational purposes only.)THIS TEST WAS PERFORMED AT:[employer] [address]CLAUDY ONEILLesponsible Observer: SIG TO C/O SIGNAL TO CUTOFF [id number] 914.8335 ([employer] [place]) NOTES See Note None Note: Patient Street Address: [facility] [address]Patient City: [place]: [address] Reviewed by Maya Barron MD on 05/26; All test results are final unless otherwise noted. Reported Physicians [facility] Ordered by Maya Barron MD on 05/23/2020 Collected: 05/23/2020 Reported: 05/25/2020 17:11 Reported Physicians See Note None Note: Reported Physicians:Ordering: Cara Alvarengaending: Maya Barron Reviewed by Maya Barron MD on 05/26; All test results are final unless otherwise noted. Type and Screen [facility] Ordered by Maya Barron MD [...] are final unless otherwise noted. Reported Physicians [facility] Ordered by Maya Barron MD on 05/23/2020 Collected: 05/23/2020 Reported: 05/23/2020 19:32 Reported Physicians See Note None Note: Reported Physicians:Ordering: Maya AlvarengaAttending: Maya Barron Reviewed by Maya Barron MD on 05/24; All test results are final unless otherwise noted. PROGESTERONE [facility] Ordered by Maya Barron MD [...] are final unless otherwise noted. Reported Physicians [facility] Ordered by Maya Barron MD on 04/27/2020 Collected: 04/27/2020 Reported: 04/27/2020 15:58 Reported Physicians See Note None Note: Reported Physicians:Ordering: Johnny HernándezAttending: Jos Castellanos To: Rubén Barron To: Cristino Castellanos Reviewed by Maya Barron MD on 04/30; All test results are final unless otherwise noted. BHCG, QUANTITATIVE [facility] Ordered by Maya Barron MD on 04/27/2020 Collected: 04/27/2020 Reported: 04/27/2020 14:40 B-HCG [facility] 2353 MilliInternationalUnitsPerMilliLiter_[Arbitrary_Con (0-10) H (High) Note: @Instrument [...] are final unless otherwise noted. Reported Physicians [facility] Ordered by Maya Barron MD on 04/27/2020 Collected: 04/27/2020 Reported: 04/27/2020 14:40 Reported Physicians See Note None Note: Reported Physicians:Ordering: Cristino SnowAttending: Jos Castellanos To: Suzanne Cazares To: Maya Barron Reviewed by Maya Barron MD on 04/30; All test results are final unless otherwise noted. CBC W AUTO DIFF [facility] Ordered by Maya Barron MD [...] Auto See Note (0-2) N (Normal) Note: 0.20.5I33830602461.2Responsible Ob fountain server: IG% IG% 100.1375 (B) Hct VFr [...] test results are final unless otherwise noted. [facility] Ordered by Maya Barron MD on [...] are final unless otherwise noted. Reported Physicians [facility] Ordered by Maya Barron MD on 04/25/2020 Collected: 04/25/2020 Reported: 04/25/2020 22:11 Reported Physicians See Note None Note: Reported Physicians:Ordering: Aj Ferreiraending: Jos Rivas To: Maya Barron Reviewed by Maya Barron MD on 04/26; All test results are final unless otherwise noted. BHCG, QUANTITATIVE [facility] Ordered by Maya Barron MD [...] are final unless otherwise noted. Reported Physicians [facility] Ordered by Maya Barron MD on 04/25/2020 Collected: 04/25/2020 Reported: 04/25/2020 22:11 Reported Physicians See Note None Note: Reported Physicians:Ordering: Aj Ferreiraending: Jos Rivas To: Maya Barron Reviewed by Maya Barron MD on 04/26; All test results are final unless otherwise noted. Urine culture [facility] Ordered by Maya Barron MD on 04/25/2020 Collected: 04/25/2020 Reported: 04/27/2020 04:50 Bacteria Ur Cult See Note None Note: NGNo growth.L1NG NOTES See Note None Note: @ NICOLE DATE was changed from 04/26 to 04/25/20@ by POMCY. Reviewed by Maya Barron MD on 04/30; All test results are final unless otherwise noted. Reported Physicians [facility] Ordered by Maya Barron MD on 04/25/2020 Collected: 04/25/2020 Reported: 04/27/2020 04:51 Reported Physicians See Note None Note: Reported Physicians:Ordering: Aj Ferreiraending: Jos Rivas To: Maya Barron Reviewed by Maya Barron MD on 04/30; All test results are final unless otherwise noted. ADD ON MICROSCOPIC [facility] Ordered by Maya Barron MD on 04/25/2020 Collected: 04/25/2020 Reported: 04/25/2020 21:54 ADD ON MICROSCOPIC See Note (0-5) None Note: NOTES OTHER/NOT INTERPRETED Bacteria UrnS Ql Micro SMALL AMOUNT Bacteria UrnS Ql Micro SMALL AMOUNT Bacteria UrnS Ql Micro L Bacteria UrnS Ql Micro Bacteria UrnS Ql Micro Bacteria UrnS Ql Micro Bacteria UrnS Ql Micro [id number] Bacteria UrnS Ql Micro Bacteria UrnS Ql [...] are final unless otherwise noted. Reported Physicians [facility] Ordered by Maya Barron MD on 04/25/2020 Collected: 04/25/2020 Reported: 04/25/2020 21:54 Reported Physicians See Note None Note: Reported Physicians:Ordering: Aj Ferreiraending: Jos Rivas To: Maya Barron Reviewed by Maya Barron MD on 04/26; All test results are final unless otherwise noted. URINALYSIS [facility] Ordered by Maya Barron MD on 04/25/2020 Collected: 04/25/2020 Reported: 04/25/2020 21:54 Urobilinogen Ur Ql See Note (0.2-1 EU/dl) None Note: 0.2 EU/dl0.2 EU/xuZ42746384331.2 E U/dlResponsible Observer: UROBILINOGEN UROBILINOGEN 300.4500 (C) RBC # Ur Strip NEGATIVE (NEGATIVE) None Note: Responsible Observer: BLOOD BLOOD 300.4650 (C) Prot Ur Ql Strip See Note (NEGATIVE) None Note: [id number] EResponsible Observer: PROTEIN PROTEIN 300.3750 (C) Ketones Ur Ql Strip See Note (NEGATIVE) None Note: [id number] EResponsible Observer: KETONE KETONE 300.3900 (C) Bilirub Ur Ql Strip.auto See Note (NEGATIVE) None Note: [id number] EResponsible Observer: BILIRUBIN BILIRUBIN 300.4550 (C) Glucose Ur Strip.auto-mCnc NEGATIVE (NEGATIVE) None Note: Responsible Observer: GLUCOSE GLUC OSE 300.3850 (C) Appearance Ur See Note (CLEAR) None Note: CLEARCLEARLCLEARResponsible Observ er: APPEARANCE APPEARANCE 300.3400 (A) Color Ur See Note None Note: YELLOWYELLOWLYELLOWResponsible Obs erver: COLOR COLOR 300.3300 (A) Leukocyte esterase Ur Ql Strip See Note (NEGATIVE) None Note: [id number]@DO MICR O!!!!Responsible Observer: LEUKOCYTES LEUKOCYTES 300.3575 (C) Nitrite Ur Ql Strip See Note (NEGATIVE) None Note: [id number] EResponsible Observer: NITRITE NITRITE 300.3650 (B) pH [...] are final unless otherwise noted. Reported Physicians [facility] Ordered by Maya Barron MD on 04/25/2020 Collected: 04/25/2020 Reported: 04/25/2020 21:54 Reported Physicians See Note None Note: Reported Physicians:Ordering: Aj Ferreiraending: Jos Rivas To: Maya Barron Reviewed by Maya Barron MD on 04/26; All test results are final unless otherwise noted. BHCG, QUANTITATIVE [facility] Ordered by Maya Barron MD [...] are final unless otherwise noted. Reported Physicians [facility] Ordered by Maya Barron MD on 04/18/2020 Collected: 04/18/2020 Reported: 04/18/2020 15:11 Reported Physicians See Note None Note: Reported Physicians:Ordering: Maya AlvarengaAttending: Maya Barron Reviewed by Maya Barron MD on 04/19; All test results are final unless otherwise noted. ADD ON MICROSCOPIC [facility] Ordered by Maya Barron MD on 04/16/2020 Collected: 04/16/2020 Reported: 04/16/2020 23:51 ADD ON MICROSCOPIC See Note (0-5) None Note: NOTES OTHER/NOT INTERPRETED Bacteria UrnS Ql Micro SMALL AMOUNT Bacteria UrnS Ql Micro SMALL AMOUNT Bacteria UrnS Ql Micro L Bacteria UrnS Ql Micro Bacteria UrnS Ql Micro Bacteria UrnS Ql Micro Bacteria UrnS Ql Micro [id number] Bacteria UrnS Ql Micro Bacteria UrnS Ql [...] are final unless otherwise noted. Reported Physicians [facility] Ordered by Maya Barron MD on 04/16/2020 Collected: 04/16/2020 Reported: 04/16/2020 23:52 Reported Physicians See Note None Note: Reported Physicians:Ordering: Jose E JoseodAttending: Jose E JoseodCopy To: Maya Barron Reviewed by Maya Barron MD on 04/17; All test results are final unless otherwise noted. UA W/ CULTURE IF ABNORMAL [facility] Ordered by Maya Barron MD on 04/16/2020 Collected: 04/16/2020 Reported: 04/16/2020 23:51 Urobilinogen Ur Ql See Note (0.2-1 EU/dl) None Note: 0.2 EU/dl0.2 EU/[id number] E U/dlResponsible Observer: UROBILINOGEN UROBILINOGEN 300.4500 (C) RBC # Ur Strip NEGATIVE (NEGATIVE) None Note: Responsible Observer: BLOOD BLOOD 300.4652 (C) Prot Ur Ql Strip See Note (NEGATIVE) None Note: [id number] EResponsible Observer: PROTEIN PROTEIN 300.3750 (C) Ketones Ur Ql Strip See Note (NEGATIVE) None Note: [id number] ble Observer: KETONE KETONE 300.3900 (C) Bilirub Ur Ql Strip.auto See Note (NEGATIVE) None Note: [id number] EResponsible Observer: BILIRUBIN BILIRUBIN 300.4550 (C) Glucose Ur Strip.auto-mCnc NEGATIVE (NEGATIVE) None Note: Responsible Observer: GLUCOSE GLUC OSE 300.3850 (C) Appearance Ur See Note (CLEAR) None Note: CLEARCLEARLCLEARResponsible Observ er: APPEARANCE APPEARANCE 300.3400 (A) Color Ur See Note None Note: YELLOWYELLOWLYELLOWResponsible Obs erver: COLOR COLOR 300.3330 (A) Leukocyte esterase Ur Ql Strip See Note (NEGATIVE) None Note: [id number] E@DO MICRO!!!!A Culture has been added to this specimen per established criteriaResponsible Observer: LEUKOCYTES LEUKOCYTES 300.3576 (C) Nitrite Ur Ql Strip See Note (NEGATIVE) None Note: [id number] EResponsible Observer: NITRITE NITRITE 300.3652 (B) pH [...] are final unless otherwise noted. Urine culture [facility] Ordered by Maya Barron MD on 04/16/2020 Collected: 04/16/2020 Reported: 04/18/2020 06:47 Urine culture result See Note None Note: Less than 10,000 CFU/MLNormal Comm ensal FloraProbable contaminants no senst done NOTES See Note None Note: @04/16/20 2351: Urine culture adde d. RFLXG = CULT.ADD. Reviewed by Maya Barron MD on 04/18; All test results are final unless otherwise noted. Reported Physicians [facility] Ordered by Maya Barron MD on 04/16/2020 Collected: 04/16/2020 Reported: 04/18/2020 06:47 Reported Physicians See Note None Note: Reported Physicians:Ordering: Damon , VinodAttending: Damon, VinodCopy To: Maya Barron Reviewed by Maya Barron MD on 04/18; All test results are final unless otherwise noted. CBC W AUTO DIFF [facility] Ordered by Maya Barron MD [...] Auto See Note (0-2) N (Normal) Note: 0.20.4R48409771791.2Responsible Ob fountain server: IG% IG% 100.1375 (B) Hct VFr [...] are final unless otherwise noted. BHCG, QUANTITATIVE [facility] Ordered by Maya Barron MD [...] are final unless otherwise noted. Reported Physicians [facility] Ordered by Maya Barron MD on 04/16/2020 Collected: 04/16/2020 Reported: 04/16/2020 22:47 Reported Physicians See Note None Note: Reported Physicians:Ordering: Randy Joseending: Jose E JoseodCopy To: Maya Barron Reviewed by Maya Barron MD on 04/17; All test results are final unless otherwise noted. CMP [facility] Ordered by Maya Barron MD [...] are final unless otherwise noted. Reported Physicians [facility] Ordered by Maya Barron MD on 04/16/2020 Collected: 04/16/2020 Reported: 04/16/2020 22:44 Reported Physicians See Note None Note: Reported Physicians:Ordering: Damon , VinodAttending: Damon, VinodCopy To: Maya Barron Reviewed by Maya Barron MD on 04/17; All test results are final unless otherwise noted. LIPASE [facility] Ordered by Maya Barron MD on 04/16/2020 Collected: 04/16/2020 Reported: 04/16/2020 22:44 Lipase SerPl-cCnc 107 enzyme_unit_per_liter (73-393) N (Normal) Note: Responsible Observer: Lipase Lipas e 400.2310 (G) Reviewed by Maya Barron MD on 04/17; All test results are final unless otherwise noted. Reported Physicians [facility] Ordered by Maya Barron MD on 04/16/2020 Collected: 04/16/2020 Reported: 04/16/2020 22:44 Reported Physicians See Note None Note: Reported Physicians:Ordering: Damon , VinodAttending: Damon, VinodCopy To: Maya Barron Reviewed by Maya Barron MD on 04/17; All test results are final unless otherwise noted. Type and Screen [facility] Ordered by Maya Barron MD [...] are final unless otherwise noted. Reported Physicians [facility] Ordered by Maya Barron MD on 04/16/2020 Collected: 04/16/2020 Reported: 04/16/2020 23:09 Reported Physicians See Note None Note: Reported Physicians:Ordering: Randy Joseending: Alix Jose To: Maya Barron Reviewed by Maya Barron MD on 04/17; All test results are final unless otherwise noted. CBC [facility] Ordered by Maya Barron MD on 04/10/[address] [place] [address], [id number] Collected: 04/10/2020 Reported: 04/11/2020 11:35 tel : [...] test results are final unless otherwise noted. [facility] Ordered by Maya Barron MD on 04/10/[address] [place] [address], [id number] Collected: 04/10/2020 Reported: 04/11/2020 11:35 tel : [...] Ordered by Maya Barron MD on 04/10/[address] [place] [address], [facility] Collected: 04/10/2020 Reported: 04/11/2020 11:35 tel : ext. [phone] TSH 1.336 uIu/mL (0.5-5.8) None Note: Responsible Observer: AW Reviewed by Maya Barron MD on 04/12; All test results are final unless otherwise noted. [facility] Ordered by Maya Barron MD on 02/25/2020 Collected: 02/25/2020 Reported: 02/28/2020 15:53 C trach rRNA XXX Ql ТАТЬЯНА+probe See Note (NOT DETECTED) None Note: NOT DETECTEDNOT DETECTEDLNOT DETEC TEDNOT [id number] DETECTEDResponsible Observer: C.Trach RNA Chlamydia trachomatis DNA-ТАТЬЯНА 81755330 913.9900 ([employer] [place]) N gonorrhoea rRNA XXX Ql ТАТЬЯНА+probe See Note (NOT DETECTED) None Note: NOT DETECTEDNOT DETECTEDLNOT DETEC TEDNOT [id number] DETECTEDResponsible Observer: GC RNA Neisseria gonorrhoeae DNA -ТАТЬЯНА 79787143 913.9905 ([employer] [place]) Chlamydia/GC DNA Note SEE NOTE None Note: The analytical performance charact eristics of thisassay, when used to test SurePath(TM) specimens have beendetermined by [facility]. The modifications havenot been cleared or approved by the FDA. This assay hasbeen validated pursuant to the CLIA regulations and isused for clinical purposes.For additional information, please refer tohttps://education.[employer]/faq/CEW741(This link is being provided for information/educational purposes only.)THIS TEST WAS PERFORMED AT:[employer] [facility] [address]CLAUDY ONEILLesponsible Observer: ANDRE/Kamini Note Chlamydia/GC DNA Note 21505851 913.9907 (A) NOTES See Note None Note: Source Of Specimen: URINE Reviewed by Maya Barron MD on 02/28; All test results are final unless otherwise noted. Reported Physicians [facility] Ordered by Maya Barron MD on 02/25/2020 Collected: 02/25/2020 Reported: 02/28/2020 15:54 Reported Physicians See Note None Note: Reported Physicians:Ordering: Cara Alvarengaending: Maya Barron Reviewed by Maya Barron MD on 02/28; All test results are final unless otherwise noted. Urine culture-[facility] Ordered by Maya Barron MD on 02/25/2020 Collected: 02/25/2020 Reported: 02/26/2020 13:38 Urine culture result No growth None Reviewed by Maya Barron MD on 02/27; All test results are final unless otherwise noted. Reported Physicians [facility] Ordered by Maya Barron MD on 02/25/2020 Collected: 02/25/2020 Reported: 02/26/2020 13:39 Reported Physicians See Note None Note: Reported Physicians:Ordering: Maya AlvarengaAttending: Maya Barron Reviewed by Maya Barron MD on 02/27; All test results are final unless otherwise noted. Test Office Lab Ordered by Maya Barron MD on 02/25/2020 [address] [place], [address] Specimen Source: Urine Collected: 02/25/2020 Reporte d: 02/25/2020 11:15 tel:[phone] Urine HCG neg (negative) N (Normal) Reviewed by Maya Barron MD on 02/24; All test results are final unless otherwise noted. Urinalysis w/out microscopy Office Lab Ordered by Maya Barron MD on 02/25/2020 [address] [place], [address] Specimen Source: Urine Collected: 02/25/2020 Reporte d: 02/25/2020 11:02 tel:[phone] bilirubin neg (neg) N (Normal) blood neg [...] otherwise noted. UA W/ CULTURE IF ABNORMAL [facility] Ordered by Maya Barron MD on 01/29/2020 Collected: 01/29/2020 Reported: 01/29/2020 00:22 Urobilinogen Ur Ql See Note (0.2-1 EU/dl) None Note: 1 EU/dl1 EU/dlL1 EU/dl1 EU/lfY6255 [id number] EU/dlResponsible Observer: UROBILINOGEN UROBILINOGEN 300.4500 (C) RBC # Ur Strip NEGATIVE (NEGATIVE) None Note: Responsible Observer: BLOOD BLOOD 300.4652 (C) Prot Ur Ql Strip See Note (NEGATIVE) None Note: NEGATIVENEGATIVELNEGATIVENEGATIVEL [id number] Observer: PROTEIN PROTEIN 300.3750 (C) Ketones Ur Ql Strip See Note (NEGATIVE) None Note: 15 mg/dL15 mg/dLL15 mg/dL15 mg/dLL 107270988516 mg/dLResponsible Observer: KETONE KETONE 300.3900 (C) Bilirub Ur Ql Strip.auto See Note (NEGATIVE) None Note: NEGATIVENEGATIVELNEGATIVENEGATIVEL [id number] Observer: BILIRUBIN BILIRUBIN 300.4550 (C) Glucose Ur Strip.auto-mCnc NEGATIVE (NEGATIVE) None Note: Responsible Observer: GLUCOSE GLUC OSE 300.3850 (C) Appearance Ur See Note (CLEAR) None Note: CLEARCLEARLCLEARCLEARLCLEARRespons ible Observer: APPEARANCE APPEARANCE 300.3400 (A) Color Ur See Note None Note: YELLOWYELLOWLYELLOWYELLOWLYELLOWRe sponsible Observer: COLOR COLOR 300.3330 (A) Leukocyte esterase Ur Ql Strip See Note (NEGATIVE) None Note: NEGATIVENEGATIVELNEGATIVENEGATIVEL [id number] Observer: LEUKOCYTES LEUKOCYTES 300.3576 (C) Nitrite Ur Ql Strip See Note (NEGATIVE) None Note: NEGATIVENEGATIVELNEGATIVENEGATIVEL [id number] Observer: NITRITE NITRITE 300.3652 (B) pH Ur [...] are final unless otherwise noted. Reported Physicians [facility] Ordered by Maya Barron MD on 01/29/2020 Collected: 01/29/2020 Reported: 01/29/2020 00:22 Reported Physicians See Note None Note: Reported Physicians:Ordering: Yoli NapolesAttending: Charles Silva To: Maya Barron Reviewed by Maya Barron MD on 01/30; All test results are final unless otherwise noted. BHCG,SERUM QUALITATIVE [facility] Ordered by Maya Barron MD [...] are final unless otherwise noted. Reported Physicians [facility] Ordered by Maya Barron MD on 01/28/2020 Collected: 01/28/2020 Reported: 01/28/2020 22:58 Reported Physicians See Note None Note: Reported Physicians:Ordering: Yoli NapolesAttending: Charles Silva To: Maya Barron Reviewed by Maya Barron MD on 01/30; All test results are final unless otherwise noted. CBC W AUTO DIFF [facility] Ordered by Maya Barron MD [...] Auto See Note (0-2) N (Normal) Note: [id number] ible Observer: IG% IG% 100.1375 (B) Hct [...] test results are final unless otherwise noted. [facility] Ordered by Maya Barron MD on [...] are final unless otherwise noted. Reported Physicians [facility] Ordered by Maya Barron MD on 01/28/2020 Collected: 01/28/2020 Reported: 01/28/2020 23:00 Reported Physicians See Note None Note: Reported Physicians:Ordering: Cliff Napolesending: Charles Silva To: Maya Barron Reviewed by Maya Barron MD on 01/30; All test results are final unless otherwise noted. UA W/ CULTURE IF ABNORMAL [facility] Ordered by Maya Barron MD on 12/12/2019 Collected: 12/12/2019 Reported: 12/12/2019 11:22 Urobilinogen Ur Ql See Note (0.2-1 EU/dl) None Note: 1 EU/dl1 EU/dlL1 EU/dl1 EU/txV1640 [id number] EU/dlResponsible Observer: UROBILINOGEN UROBILINOGEN 300.4500 (C) RBC # Ur Strip NEGATIVE (NEGATIVE) None Note: Responsible Observer: BLOOD BLOOD 300.4652 (C) Prot Ur Ql Strip See Note (NEGATIVE) None Note: NEGATIVENEGATIVELNEGATIVENEGATIVEL [id number] Observer: PROTEIN PROTEIN 300.3750 (C) Ketones Ur Ql Strip See Note (NEGATIVE) None Note: 15 mg/dL15 mg/dLL15 mg/dL15 mg/dLL [id number] mg/dLResponsible Observer: KETONE KETONE 300.3900 (C) Bilirub Ur Ql Strip.auto See Note (NEGATIVE) None Note: NEGATIVENEGATIVELNEGATIVENEGATIVEL [id number] Observer: BILIRUBIN BILIRUBIN 300.4550 (C) Glucose Ur Strip.auto-mCnc NEGATIVE (NEGATIVE) None Note: Responsible Observer: GLUCOSE GLUC OSE 300.3850 (C) Appearance Ur See Note (CLEAR) A (Abnormal) Note: CLOUDYCLOUDYLCLOUDYCLOUDYLCLOUDYRe sponsible Observer: APPEARANCE APPEARANCE 300.3400 (A) Color Ur See Note None Note: YELLOWYELLOWLYELLOWYELLOWLYELLOWRe sponsible Observer: COLOR COLOR 300.3330 (A) Leukocyte esterase Ur Ql Strip See Note (NEGATIVE) None Note: NEGATIVENEGATIVELNEGATIVENEGATIVEL [id number] Observer: LEUKOCYTES LEUKOCYTES 300.3576 (C) Nitrite Ur Ql Strip See Note (NEGATIVE) None Note: NEGATIVENEGATIVELNEGATIVENEGATIVEL [id number] Observer: NITRITE NITRITE 300.3652 (B) pH Ur [...] are final unless otherwise noted. Reported Physicians [facility] Ordered by Maya Barron MD on 12/12/2019 Collected: 12/12/2019 Reported: 12/12/2019 11:23 Reported Physicians See Note None Note: Reported Physicians:Ordering: Maya AlvarengaAttending: Maya Barron Reviewed by Maya Barron MD on 12/12; All test results are final unless otherwise noted. CBC W AUTO DIFF [facility] Ordered by Maya Barron MD [...] Auto See Note (0-2) N (Normal) Note: [id number] ible Observer: IG% IG% 100.1375 (B) Hct [...] test results are final unless otherwise noted. [facility] Ordered by Maya Barrno MD on 12/12/2019 Collected: 12/12/2019 Reported: 12/12/2019 [...] are final unless otherwise noted. Reported Physicians [facility] Ordered by Maya Barron MD on 12/12/2019 Collected: 12/12/2019 Reported: 12/12/2019 11:58 Reported Physicians See Note None Note: Reported Physicians:Ordering: Maya AlvarengaAttending: Maya Barron Reviewed by Maya Barron MD on 12/12; All test results are final unless otherwise noted. Gastrointestinal Panel PCR [facility] Ordered by Maya Barron MD [...] OTHER EXPERTS. (E.G. GUIDELINES/POLICYSTATEMENTS PUBLISHED BY THE [place] [employer]OR THE SOCIETY FOR HEALTHCARE EPIDEMIOLOGY OF [place] ANDTHE INFECTIOUS DISEASE SOCIETY OF [place]).CLOC. difficile toxin [id number]. difficile toxin detected Reviewed by Maya Barron MD on 12/12; All test results are final unless otherwise noted. Reported Physicians [facility] Ordered by Maya Barron MD on 12/12/2019 Collected: 12/12/2019 Reported: 12/12/2019 14:17 Reported Physicians See Note None Note: Reported Physicians:Ordering: Maya AlvarengaAttending: Maya Barron Reviewed by Maya Barron MD on 12/12; All test results are final unless otherwise noted. CBC W AUTO DIFF [facility] Ordered by Maya Barron MD [...] Auto See Note (0-2) N (Normal) Note: [id number] ible Observer: IG% IG% 100.1375 (B) Hct [...] test results are final unless otherwise noted. [facility] Ordered by Maya Barron MD on [...] unless otherwise noted. Prothrombin Time & INR [facility] Ordered by Maya Barron MD [...] are final unless otherwise noted. Reported Physicians [facility] Ordered by Maya Barron MD on 12/07/2019 Collected: 12/07/2019 Reported: 12/07/2019 17:21 Reported Physicians See Note None Note: Reported Physicians:Ordering: Aj Snowending: Cristino CastellanosCopyifan To: Maya Barron Reviewed by Maya Barron MD on 12/09; All test results are final unless otherwise noted. Urinalysis w/out microscopy Office Lab Ordered by Maya Barron MD on [address] [place] [address], [id number] Specimen Source: Urine Collected: Reported: 2020 11:41 [...] Ordered by Maya Barron MD on 12/27/2019 [facility] [place], [address] Specimen Source: Urine Collected: Reported: 2019 13:46 [...] Procedures and Surgical History Includes: Procedures from 12/06/2019 through 12/05/2020 Procedures Code Diagnosis Performing Provider Service Location Service Date REVISIT- office visit KAYLEIGH 22 weeks gestatio n of Maya Barron MD [facility], [facility] 11/28/2020 REVISIT- office visit KAYLEIGH 21 weeks gestatio n of Maya Barron MD [facility], [facility] 11/21/2020 REVISIT- office visit KAYLEIGH 20 weeks gestatio n of Maya Barron MD [facility], [facility] 11/14/2020 no charge procedure NC Palpitations Maya Barron MD [facility], [facility] 11/03/2020 no charge procedure NC Palpitations Maya Barron MD [facility], [facility] 10/31/2020 REVISIT- office visit KAYLEIGH 18 weeks gestatio n of Maya Barron MD [facility], [facility] 10/31/2020 REVISIT- office visit KAYLEIGH 17 weeks gestatio n of Maya Barron MD [facility], [facility] 10/24/2020 no charge procedure NC Palpitations Maya Barron MD [facility], [facility] 10/17/2020 REVISIT- office visit KAYLEIGH 16 weeks gestatio n of Maya Barron MD [facility], [facility] 10/17/2020 Holter Monitor, Physician review & interpretation only 37913 Palpitations Michel Villalba MD [facility] 10/11/2020 REVISIT- office visit KAYLEIGH 15 weeks gestatio n of Maya Barron MD [facility], [facility] 10/11/2020 REVISIT- office visit KAYLEIGH 13 weeks gestatio n of Maya Barron MD [facility], [facility] 09/27/2020 REVISIT- office visit KAYLEIGH 12 weeks gestatio n of Maya Barron MD [facility], [facility] 09/19/2020 EKG- Electrocardiogram/12 lead 90092 Chest pain, unspe cified Cat Gutierrez [facility], [facility] 09/11/2020 REVISIT- office visit KAYLEIGH 10 weeks gestatio n of Cat Gutierrez [facility], [facility] 09/05/2020 REVISIT- office visit KAYLEIGH 8 weeks gestation of Maya Barron MD [facility], [facility] 08/22/2020 Urinalysis w/o Microscopy (Distinct Seperate service-same da y) 47003 Frequency of micturition- Urinary Frequency Maya Barron MD [facility], [facility] 08/15/2020 RAPID STREP 80229 Acute pharyngitis, unspecified Maya Barron MD [facility], [facility] 08/15/2020 Initial Obstetrical Care Office Visit OB Le ss than 8 weeks gestation of Cat Gutierrez [facility], [facility] 021 Urinalysis w/o Microscopy 27878 Frequency of micturiti on- Urinary Frequency Maya Barron MD [facility], [facility] 07/19/2020 REVISIT- office visit KAYLEIGH Threatened Alicja Barron MD [facility], [facility] 05/26/2020 NO CHARGE- Nurse visit- OB establish [employer] Thr eatened , state, incidental Maya Barron MD [facility], [facility] 020 General Health Panel( CMP, CBC, TSH) 73245 Dysmenorrhe a, unspecified Maya Barron MD [facility], [facility] 04/10/2020 Venipuncture (routine) 19958 Dysmenorrhea, unspecified Mariela Barron MD [facility], [facility] 04/10/2020 Brief Emotional Behavior Assessment ( add -59 mod) 31694 Screening for Mental Health/Behavioral Disorder, Unspecified Maya Barron MD [facility], [facility] 04/10/2020 Urine Test 57666 Pelvic and perineal pain, Frequency of micturition- Urinary Frequency Maya Barron MD [facility], [facility] 02/25/2020 Urinalysis w/o Microscopy 04229 Frequency of micturiti on- Urinary Frequency Maya Barron MD [facility], [facility] 02/25/2020 Urine Test 73269 Amenorrhea, unspecified Maya Barron MD [facility], [facility] 12/27/2019 Surgical History Last Updated No [...] 12:00AM Act laya Encounters Includes: Encounters from 12/06/2019 through 12/05/2020 Encounter Provider Location Date Check-In Time Check-Out Time D iagnosis REVISIT- Routine (OB) Visit Maya Barron MD [facility], [facility] 12/05/2020 11:17AM 11/28/2020 11:59PM REVISIT- Routine (OB) Visit Maya Barron MD [facility], [facility] 11/28/2020 1:34PM 1:51PM Chronic Care Mgt - Office Visit Maya Barron MD [facility], [facility] 11/21/2020 2:10PM 2:35PM Fracture of Fift h Cervical Vertebral Body, History of Psychiatric Disorders, Reactive Airway Disease REVISIT- Routine (OB) Visit Maya Barron MD [facility], [facility] 11/21/2020 11:33AM 12:01PM REVISIT- Routine (OB) Visit Maya Barron MD [facility], [facility] 11/14/2020 9:55AM 10:36AM REVISIT- Routine (OB) Visit Maya Barron MD [facility], [facility] 11/07/2020 11:42AM 12:02PM OB- ILL VISIT Maya Barron MD [facility], [facility] 11/03/2020 3:45PM 4:29PM , Generalized Anxie ty Disorder, Panic Disorder, Chest Pain Chronic Care Mgt - Office Visit Maya Barron MD [facility], [facility] 11/03/2020 2:37PM 3:38PM Chronic Care Mgt - Office Visit Maya Barron MD [facility], [facility] 10/31/2020 3:23PM 3:24PM Fracture of Fift h Cervical Vertebral Body, History of Psychiatric Disorders, Reactive Airway Disease REVISIT- Routine (OB) Visit Maya Barron MD [facility], [facility] 10/31/2020 9:54AM 10:24AM Chronic Care Mgt - Office Visit Maya Barron MD [facility], [facility] 10/24/2020 2:16PM 11:59PM REVISIT- Routine (OB) Visit Maya Barron MD [facility], [facility] 10/24/2020 10:00AM 10:47AM REVISIT- Routine (OB) Visit Maya Barron MD [facility], [facility] 10/17/2020 11:24AM 12:12PM Chronic Care Mgt - Office Visit Maya Barron MD [facility], [facility] 10/17/2020 11:25AM 12:11PM Fracture of Fift h Cervical Vertebral Body, History of Psychiatric Disorders, Reactive Airway Disease REVISIT- Routine (OB) Visit Maya Barron MD [facility], [facility] 10/11/2020 9:44AM 10:15AM OB- ILL VISIT Maya Barron MD [facility], [facility] 10/04/2020 2:12PM 2:31PM Presyncope Syndrome, Tachyca rdia, Palpitations, Difficulty Breathing (Dyspnea), Weeks of Gestation - 14 REVISIT- Routine (OB) Visit Maya Barron MD [facility], [facility] 09/27/2020 1:36PM 1:59PM telephone conversation Michel Villalba MD 09/19/2020 9:43PM 09/19/2020 11:59PM Atypical Chest Pain REVISIT- Routine (OB) Visit Maya Barron MD [facility], [facility] 09/19/2020 9:48AM 10:14AM REVISIT- Routine (OB) Visit Cat Gutierrez [facility], [facility] 09/11/2020 3:22PM 4:16PM REVISIT- Routine (OB) Visit Cat Gutierrez [facility], [facility] 09/05/2020 9:37AM 10:00AM TCMNV phone call- NO CHARGE Cat Gutierrez [facility] 09/04/2020 09/05/2020 4:54PM 09/05/2020 11:59PM [Patient Encounter] Cat Gutierrez [facility] 08/31/2020 021 2:21PM 08/22/2020 11:59PM telephone conversation Michel Villalba MD 08/2808/22/2020 11:00AM 08/22/2020 11:59PM REVISIT- Routine (OB) Visit Maya Barron MD [facility], [facility] 08/22/2020 1:56PM 2:19PM sick visit Maya Barron MD [facility], [facility] 0 08/15/2020 9:36AM 10:12AM Upper Respiratory Infection Acute, Pollakiuria Obstetrics/ first visit Cat Gutierrez [facility], [facility] 08/09/2020 9:22AM 10:56AM followup Cat Gutierrez [facility] 0 08/02/2020 10:18AM 11:42AM Generalized Anxiety Disorder , Early Stage, Abdominal Pain telephone conversation Michel Villalba MD 1 07/26/2020 7:59AM 07/26/2020 11:59PM [Patient Encounter] Cat Betzaida Brenda BOOKER 07/28/2020 021 2:20PM 07/26/2020 11:59PM followup Maya Barron MD [facility] 0 07/26/2020 10:39AM 11:02AM , Generalized Anxie ty Disorder sick visit Bandar Cleveland PA-C [facility] 3:36PM 4:30PM Pyrexia followup Maya Barron MD [facility] 0 07/19/2020 10:52AM 11:30AM , Generalized Anxie ty Disorder, Pollakiuria followup Maya Barron MD [facility] 1 09/11/2019 10:43AM 11:14AM Atypical Chest Pain, Adjustm ent Disorder followup Maya Barron MD [facility] 1 08/07/2019 10:43AM 10:59AM Missed followup Maya Barron MD [facility] 05/26 1:45PM 2:11PM with Threatened Problem visit - not contagious Maya Barron MD [facility] 05/24/2020 11:13AM 12:00PM with T hreatened [Patient Encounter] Maya Barron MD 05/24/2020 020 10:17AM 04/19/2020 11:59PM followup Maya Barron MD [facility] 1 11:51AM 12:08PM ANNUAL PE-followup Maya Barron MD [facility] 04/10/2020 8:42AM 9:13AM Routine History and Physical Adult (18 - 64 Yrs), Dysmenorrhea sick visit Maya Barron MD [facility] 0 03/06/2020 3:32PM 3:42PM Sinusitis sick visit Maya Barron MD [facility] 0 02/25/2020 10:46AM 11:12AM Pollakiuria, Female Pelvic P ain followup Maya Barron MD [facility] 01/31 2:25PM 2:51PM Back Strain followup Maya Barron MD [facility] 12/26 1:25PM 1:42PM Amenorrhea, Clostridium Difficile sick visit Maya Barron MD [facility] 0 12/07/2019 4:00PM 4:17PM Abdominal Pain Insurance Includes: Active Insurance Policies Plan Name Member ID Group # Subscriber Relationship Effective Da greg 1 - MANAGED MEDICAID [facility] [id number] Georgiana Nguyen 2020 - Unknown Advance Directives Includes: Current Advance DirectivesNo Advance Directives Recorded Health Concerns Includes: Active Health ConcernsNo Active Health Concerns Recorded Goals Includes: Active GoalsNo Active Goals Recorded Interventions Includes: Interventions for active GoalsNo Interventions Recorded Evaluations & Outcomes Includes: Evaluations & Outcomes for active GoalsNo Outcomes Recorded
--- OUTSIDE RECORDS SUMMARY | 2021-04-29 16:58 | CCD ---
Author [facility] Address [address] [place] [address] Phone Care Team Providers Care Police Patrol Officer Name Role Phone Anderson GILL, Maya Duke PP [phone] Kimberly White DPM Unavailable Unavailable Reason for [...] Time Location Provider REVISIT- Routine (OB) [facility] 12/12/2020 11:45AM [facility] SOLE Chopra MD REVISIT- Routine (OB) Visit 12/19/2020 10:00AM [facility] SOLE Chopra MD REVISIT- Routine (OB) Visit 12/26/2020 10:00AM [facility] SOLE Chopra MD REVISIT- Routine (OB) Visit 01/02/2021 10:00AM [facility] SOLE Barron MD REVISIT- Routine (OB) Visit 01/09/2021 10:00AM [facility] SOLE Barron MD REVISIT- Routine (OB) Visit 01/16/2021 10:00AM [facility] SOLE Barron MD REVISIT- Routine (OB) Visit 01/23/2021 10:00AM [facility] SOLE Barron MD REVISIT- Routine (OB) Visit 01/30/2021 10:00AM [facility] SOLE Barron MD REVISIT- Routine (OB) Visit 02/06/2021 10:00AM [facility] SOLE Barron MD REVISIT- Routine (OB) Visit 02/13/2021 10:00AM [facility] SOLE Barron MD REVISIT- Routine (OB) Visit 02/20/2021 11:45AM [facility] SOLE Barron MD REVISIT- Routine (OB) Visit 02/27/2021 10:00AM [facility] SOLE Barron MD REVISIT- Routine (OB) Visit 03/06/2021 10:00AM [facility] SOLE Barron MD REVISIT- Routine (OB) Visit 03/13/2021 10:00AM [facility] SOLE Barron MD REVISIT- Routine (OB) Visit 03/20/2021 10:00AM [facility] SOLE Barron MD REVISIT- Routine (OB) Visit 03/27/2021 10:00AM [facility] SOLE Barron MD Findings Encounter Date [...] if concerned urgent visit with Linda Smith [facility] 08/07/2019 Referred elsewhere for physical therapy [...] 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 care with [facility], [facility] on health maintenance [Encounter for general adult medical examination with abnormal findings] ANNUAL PE-followup exam/30 with Maya Barron MD 04/07/2019 [facility] Pharyngitis urgent visit with Bandar [facility] PA-C 2018 Sprained ribs ; left sick visit with [facility] Strain of muscle and tendon of front wall of thorax si ck visit with [facility] 10/30/2018 Fracture of fifth cervical vertebral body No Fault with Wanda a [facility] 03/04/2018 Late effects of accident No Fault with [facility] 0 03/04/2018 Instructions Instructions not supported for this document typeNo Instructions Recorded Medical Equipment - Implanted Devices Includes: Current and historical DevicesNo Medical Equipment Recorded Medications Includes: Current and historical Medications Current Medications (continue as prescribed) Wellbutrin XL 150 MG Oral Tablet Extended [...] Recorded Vital Signs Includes: Vital Signs from 11/29/2019 through 11/28/2020 Vital Name 11/28/2020 01:44P 11/21/2020 11:41A 11/14/2020 [...] Pressure Sitting (mmHg) 100/72 90/50 98/60 118/76 Temp-Tympanic (F) 97.3 98.2 Height (in) 65 65 Body Mass Index (kg/m2) 20.1 20.6 Body Surface Area (m2) 1.60 1.61 Temp-Oral (F) 98.5 Oxygen Saturation (%) 98 Vital Name 07/19/2020 11:05A 07/11/2020 10:56A 06/07/2020 10:51A 05/26/2020 01:50P 05/24/2020 12:01P Pulse Rate-Sitting (bpm) 114 78 72 86 Respiration Rate (breaths/min) 18 20 20 Weight (lb) 121.6 125 119 118.2 117.8 Blood Pressure Sitting (mmHg) 116/80 120/80 124/80 118/72 110/72 Height (in) 65 65 64 Body Mass Index (kg/m2) 20.2 20.8 20.4 Body Surface Area (m2) 1.60 1.62 1.57 Temp-Oral (F) 98.2 98.5 Oxygen Saturation (%) 98 98 Vital Name 04/19/2020 11:58A 04/10/2020 08:48A 03/06/2020 03:38P 02/25/2020 10:59A 02/01/2020 02:38P Pulse Rate-Sitting (bpm) 87 72 102 72 88 Respiration Rate (breaths/min) 20 20 20 20 Weight (lb) 116 116.2 Blood Pressure Sitting (mmHg) 108/60 118/82 Height (in) 64 Body Mass Index (kg/m2) 19.9 Body Surface Area (m2) 1.55 Oxygen Saturation (%) 97 Pain Level 6 Vital Name 12/27/2019 01:31P 12/07/2019 04:04P Pulse Rate-Sitting (bpm) 68 75 Respiration Rate (breaths/min) 18 18 Blood Pressure Sitting (mmHg) 90/58 98/60 Temp-Oral (F) 97.6 Results Includes: Results from 11/29/2019 through 11/28/2020 TROPONIN [facility] Ordered by Maya Barron MD on [...] are final unless otherwise noted. Reported Physicians [facility] Ordered by Maya Barron MD on 11/20/2020 Collected: 11/20/2020 Reported: 11/20/2020 20:05 Reported Physicians See Note None Note: Reported Physicians:Ordering: Les Vanegas AAttending: Fady Raza To: Maya Barron Reviewed by Maya Barron MD on 11/22; All test results are final unless otherwise noted. Cepheid SARS/FLU/RSV RT-PCR [facility] Ordered by Maya Barron MD on [...] by FDA under an EUA for use bytuba city regional health care corporationhoriInfinity Wireless Ltdecqskrbixakp98097-6FQGW-pkk CoV RNA Resp Ql ТАТЬЯНА+eoaydHTLSTFWRROW-YZQ-6 NOT [id number]-WNN-5 NOT JAGAIPHN53478-0VTCAW RNA Resp Ql ТАТЬЯНА+probeLNNFLUAInfluenza A Not Det [id number] A Not Mgucmlie23226-5WBDUQ RNA Resp Ql ТАТЬЯНА+probeLNNINBInfluenza B Not HmkfxkkdV7569392258Epfoggone B Not Imiyqwuz83741- 2RSV RNA Resp Ql ТАТЬЯНА+probeLNNRSVRSV Not [id number] Not Detected Reviewed by Maya Barron MD on 11/20; All test results are final unless otherwise noted. Reported Physicians [facility] Ordered by Maya Barron MD on 11/18/2020 Collected: 11/18/2020 Reported: 11/18/2020 23:58 Reported Physicians See Note None Note: Reported Physicians:Ordering: Aj Snowending: Jos Castellanos To: Maya Barron Reviewed by Maya Barron MD on 11/20; All test results are final unless otherwise noted. URINE DRUG SCREEN -([facility]) [facility] Ordered by Maya Barrno MD on 11/17/2020 Collected: 11/17/2020 Reported: 11/17/2020 14:19 PCP Ur Ql Scn>25 ng/mL See Note (Cutoff 25) None Note: [id number] E@Reenter manual test result: NEGATIVE@by Claudia Tello at 11/17/20 1414.Responsible Observer: PCP Urine Phencyclidine (PCP) Scrn 400.5120 (A) THC Ur Ql Scn>50 ng/mL See Note (Cutoff 50) None Note: [id number] EResponsible Observer: Marijuana (THC) Ur Marijuana (THC) Screen 400.5110 (A) Benzodiaz Ur Ql Scn See Note (Cutoff 150) None Note: [id number] E@Reenter manual test result: NEGATIVE@by Claudia Tello at 11/17/20 1418.Responsible Observer: Benzodiazepines Urine Benzodiazepines Screen 400.5170 (A) Opiates Ur Ql Scn See Note (Cutoff 100) None Note: [id number] E@Reenter manual test result: NEGATIVE@by Claudia Tello at 11/17/20 1418.Responsible Observer: Opiates Urine Opiates Screen 400.5150 (A) Tricyclics Ur Ql Scn See Note (Cutoff 300) None Note: [id number] E@Reenter manual test result: NEGATIVE@by Claudia Tello at 11/17/20 1418.Responsible Observer: TCA Ur Tricyclic Antidepressants 400.5180 (A) Cocaine Ur Ql Scn See Note (Cutoff 150) None Note: [id number] E@Reenter manual test result: NEGATIVE@by Claudia Tello at 11/17/20 1417.Responsible Observer: Cocaine Urine Cocaine Screen 400.5130 (A) Propoxyph+Nor Ur Ql Scn See Note (Cutoff 300) None Note: [id number] E@Reenter manual test result: NEGATIVE@by Claudia Tello at 11/17/20 1418.Responsible Observer: Propoxyphene Urine Propoxyphene Screen 400.5220 (A) Methadone Ur Ql Scn See Note (Cutoff 200) None Note: [id number] E@Reenter manual test result: NEGATIVE@by Claudia Tello at 11/17/20 1418.Responsible Observer: Methadone Urine Methadone Screen 400.5190 (A) Methamphet Ur Ql Scn See Note (Cutoff 500) None Note: [id number] E@Reenter manual test result: NEGATIVE@by Claudia Tello at 11/17/20 1417.Responsible Observer: Methamphetamine Urine Methamphetamines Screen 400.5140 (A) oxyCODONE Ur Ql Scn See Note (Cutoff 100) None Note: [id number] E@Reenter manual test result: NEGATIVE@by Claudia Tello at 11/17/20 1418.Responsible Observer: Oxycodone Urine Oxycodone Screen 400.5210 (A) Buprenorphine Ur Ql See Note (Cutoff 10) None Note: [id number] E@Reenter manual test result: NEGATIVE@by Claudia Tello at 11/17/20 1419.Responsible Observer: Buprenorphine Urine Buprenorphine Screen 400.5230 (A) Amphetamines Ur Ql Scn>500 ng/mL See Note (Cutoff 500) None Note: [id number] E@Reenter manual test result: NEGATIVE@by Claudia Tello at 11/17/20 1418.Responsible Observer: Amphetamines Urine Amphetamines Screen 400.5160 (A) Barbiturates Ur Ql Scn>200 ng/mL See Note (Cutoff 200) None Note: [id number] E@Reenter manual test result: NEGATIVE@by Claudia Tello at 11/17/20 1418.Responsible Observer: Barbiturates Urine Barbiturates 400.5200 (A) Reviewed by Maya Barron MD on 11/20; All test results are final unless otherwise noted. IRON [facility] Ordered by Maya Barron MD on 11/17/2020 Collected: 11/17/2020 Reported: 11/17/2020 14:34 Iron SerPl-mCnc 39 (50-170) L (Low) Note: Iron values may be falsely elevate d in serum samples frompatients treated with anticoagulants (e.g., hemodialysispatients)Responsible Observer: Iron Level Iron Level 400.9002 (A) Reviewed by Maya Barron MD on 11/20; All test results are final unless otherwise noted. Reported Physicians [facility] Ordered by Maya Barron MD on 11/17/2020 Collected: 11/17/2020 Reported: 11/17/2020 14:34 Reported Physicians See Note None Note: Reported Physicians:Ordering: Maya AlvarengaAttending: Maya Barron Reviewed by Maya Barron MD on 11/20; All test results are final unless otherwise noted. 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 HA1C [facility] Ordered by Maya Barron MD on [...] glucose control.* High risk of developing termite inspector complications such asretinopathy, nephropathy, neuropathy, cardiopathy, etc. [...] results are final unless otherwise noted. CMP [facility] Ordered by Maya Barron MD on [...] final unless otherwise noted. Vitamin D 25-OH [facility] Ordered by Maya Barron MD on [...] VIT D, (D2,D3), LC/MS/MS is recommended: ordercode 84930 (patients >2yrs).See Note 1Note 1For additional information, please refer tohttp://education.Vastrm.Trusera/faq/BYI382(This link is being provided for informational/educational purposes only.)THIS TEST WAS PERFORMED AT:[employer] [address]OSEAS NABILCLAUDY OSHEAesponsible Observer: Vitamin D 25-OH Vitamin D 25-Hydroxy [id number] 616.8781 (QUEST) Reviewed by Maya Barron MD on 11/20; All test results are final unless otherwise noted. Reported Physicians [facility] Ordered by Maya Barron MD on 11/17/2020 Collected: 11/17/2020 Reported: 11/18/2020 08:17 Reported Physicians See Note None Note: Reported Physicians:Ordering: Cara Alvarengaending: Maya Barron Reviewed by Maya Barron MD on 11/20; All test results are final unless otherwise noted. FREE T4 (LAB) [facility] Ordered by Maya Barron MD on 11/17/2020 Collected: 11/17/2020 Reported: 11/17/2020 14:34 T4 Free SerPl-mCnc 0.78 NanoGramsPerDeciLiter_[Mass_Concentration_Units] (0.89-1.76) L (Low) Note: Responsible Observer: FREE T4 Free Thyroxine 600.7005 (D) Reviewed by Maya Barron MD on 11/20; All test results are final unless otherwise noted. Reported Physicians [facility] Ordered by Maya Barron MD on 11/17/2020 Collected: 11/17/2020 Reported: 11/17/2020 14:34 Reported Physicians See Note None Note: Reported Physicians:Ordering: Bia Alvarenga: Maya Barron Reviewed by Maya Barron MD on 11/20; All test results are final unless otherwise noted. TSH [facility] Ordered by Maya Barron MD on 11/17/2020 Collected: 11/17/2020 Reported: 11/17/2020 14:34 TSH SerPl DL<=0.005 mIU/L-aCnc 1.38 MicroInternationalUnitsPerMilliLiter_[Arbitrary_Con (0.35-5. 50) N (Normal) Note: Responsible Observer: TSH TSH 600 .7055 (D) Reviewed by Maya Barron MD on 11/20; All test results are final unless otherwise noted. Reported Physicians [facility] Ordered by Maya Barron MD on 11/17/2020 Collected: 11/17/2020 Reported: 11/17/2020 14:34 Reported Physicians See Note None Note: Reported Physicians:Ordering: Maya AlvarengaAttending: Maya Barron Reviewed by Maya Barron MD on 11/20; All test results are final unless otherwise noted. BHCG Quantitative [facility] Ordered by Maya Barron MD on 10/23/2020 Collected: 10/23/2020 Reported: 10/23/2020 01:21 [facility] MilliInternationalUnitsPerMilliLiter_[Arbitrary_Con (0-10) H (High) Note: @Instrument will [...] are final unless otherwise noted. Reported Physicians [facility] Ordered by Maya Barron MD on 10/23/2020 Collected: 10/23/2020 Reported: 10/23/2020 01:21 Reported Physicians See Note None Note: Reported Physicians:Ordering: Yoli NapolesAttending: Charles Silva To: Maya Barron Reviewed by Maya Barron MD on 10/23; All test results are final unless otherwise noted. 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 [facility] Ordered by Maya Barron MD on [...] results are final unless otherwise noted. D-DIMER [facility] Ordered by Maya Barron MD on [...] are final unless otherwise noted. Reported Physicians [facility] Ordered by Maya Barron MD on 10/23/2020 Collected: 10/23/2020 Reported: 10/23/2020 01:22 Reported Physicians See Note None Note: Reported Physicians:Ordering: Brook yeung, YoliAttending: Charles Silva To: Maya Barron Reviewed by Maya Barron MD on 10/23; All test results are final unless otherwise noted. TROPONIN [facility] Ordered by Maya Barron MD on [...] are final unless otherwise noted. Reported Physicians [facility] Ordered by Maya Barron MD on 10/23/2020 Collected: 10/23/2020 Reported: 10/23/2020 01:03 Reported Physicians See Note None Note: Reported Physicians:Ordering: Yoli NapolesAttending: Charles Silva To: Maya Barron Reviewed by Maya Barron MD on 10/23; All test results are final unless otherwise noted. FREE T4 (LAB) [facility] Ordered by Maya Barron MD on 10/21/2020 Collected: 10/21/2020 Reported: 10/21/2020 15:17 T4 Free SerPl-mCnc 0.97 NanoGramsPerDeciLiter_[Mass_Concentration_Units] (0.89-1.76) N (Normal) Note: Responsible Observer: FREE T4 Free Thyroxine 600.7005 (D) Reviewed by aMya Barron MD on 10/23; All test results are final unless otherwise noted. Reported Physicians [facility] Ordered by Maya Barron MD on 10/21/2020 Collected: 10/21/2020 Reported: 10/21/2020 15:17 Reported Physicians See Note None Note: Reported Physicians:Ordering: Math is, TimothyAttending: Edvin TimothyCopy To: Maya Barron Reviewed by Maya Barron MD on 10/23; All test results are final unless otherwise noted. TSH [facility] Ordered by Maya Barron MD on 10/21/2020 Collected: 10/21/2020 Reported: 10/21/2020 15:17 TSH SerPl DL<=0.005 mIU/L-aCnc 1.40 MicroInternationalUnitsPerMilliLiter_[Arbitrary_Con (0.35-5. 50) N (Normal) Note: Responsible Observer: TSH TSH 600 .7055 (D) Reviewed by Maya Barron MD on 10/23; All test results are final unless otherwise noted. Reported Physicians [facility] Ordered by Maya Barron MD on 10/21/2020 Collected: 10/21/2020 Reported: 10/21/2020 15:17 Reported Physicians See Note None Note: Reported Physicians:Ordering: Math is, TimothyAttending: Edvin TimothyCopy To: Maya Barron Reviewed by Maya Barron MD on 10/23; All test results are final unless otherwise noted. UA W/ CULTURE IF ABNORMAL [facility] Ordered by Maya Barron MD on 10/19/2020 Collected: 10/19/2020 Reported: 10/19/2020 16:31 Urobilinogen Ur Ql See Note (0.2-1 EU/dl) None Note: 0.2 EU/dl0.2 EU/[id number] E U/dlResponsible Observer: UROBILINOGEN UROBILINOGEN 300.4500 (C) RBC # Ur Strip NEGATIVE (NEGATIVE) None Note: Responsible Observer: BLOOD BLOOD 300.4652 (C) Prot Ur Ql Strip See Note (NEGATIVE) None Note: [id number] EResponsible Observer: PROTEIN PROTEIN 300.3750 (C) Ketones Ur Ql Strip See Note (NEGATIVE) None Note: [id number] EResponsible Observer: KETONE KETONE 300.3900 (C) Bilirub Ur Ql Strip.auto See Note (NEGATIVE) None Note: [id number] EResponsible Observer: BILIRUBIN BILIRUBIN 300.4550 (C) Glucose Ur Strip.auto-mCnc 100 mg/dl (NEGATIVE) None Note: Responsible Observer: GLUCOSE GLUC OSE 300.3850 (C) Appearance Ur See Note (CLEAR) None Note: CLEARCLEARLCLEARResponsible Observ er: APPEARANCE APPEARANCE 300.3400 (A) Color Ur See Note None Note: YELLOWYELLOWLYELLOWResponsible Obs erver: COLOR COLOR 300.3330 (A) Leukocyte esterase Ur Ql Strip See Note (NEGATIVE) None Note: [id number] EResponsible Observer: LEUKOCYTES LEUKOCYTES 300.3576 (C) Nitrite Ur Ql Strip See Note (NEGATIVE) None Note: [id number] EResponsible Observer: NITRITE NITRITE 300.3652 (B) pH [...] are final unless otherwise noted. Reported Physicians [facility] Ordered by Maya Barron MD on 10/19/2020 Collected: 10/19/2020 Reported: 10/19/2020 16:31 Reported Physicians See Note None Note: Reported Physicians:Ordering: Les Vanegas AAttending: Fady Raza To: Maya Barron Reviewed by Maya Barron MD on 10/20; All test results are final unless otherwise noted. URINE DRUG SCREEN -([facility]) [facility] Ordered by Maya Barron MD on 10/19/2020 Collected: 10/19/2020 Reported: 10/19/2020 16:40 PCP Ur Ql Scn>25 ng/mL See Note (Cutoff 25) None Note: [id number] E@Reenter manual test result: NEGATIVE@by Jia Lentz at 10/19/20 1639.Responsible Observer: PCP Urine Phencyclidine (PCP) Scrn 400.5120 (A) THC Ur Ql Scn>50 ng/mL See Note (Cutoff 50) None Note: [id number] EResponsible Observer: Marijuana (THC) Ur Marijuana (THC) Screen 400.5110 (A) Benzodiaz Ur Ql Scn See Note (Cutoff 150) None Note: [id number] E@Reenter manual test result: NEGATIVE@by Jia Lentz at 10/19/20 1640.Responsible Observer: Benzodiazepines Urine Benzodiazepines Screen 400.5170 (A) Opiates Ur Ql Scn See Note (Cutoff 100) None Note: [id number] E@Reenter manual test result: NEGATIVE@by Jia Lentz at 10/19/20 1640.Responsible Observer: Opiates Urine Opiates Screen 400.5150 (A) Tricyclics Ur Ql Scn See Note (Cutoff 300) None Note: [id number] E@Reenter manual test result: NEGATIVE@by Jia Lentz at 10/19/20 1640.Responsible Observer: TCA Ur Tricyclic Antidepressants 400.5180 (A) Cocaine Ur Ql Scn See Note (Cutoff 150) None Note: [id number] E@Reenter manual test result: NEGATIVE@by Jia Lentz at 10/19/20 1640.Responsible Observer: Cocaine Urine Cocaine Screen 400.5130 (A) Propoxyph+Nor Ur Ql Scn See Note (Cutoff 300) None Note: [id number] E@Reenter manual test result: NEGATIVE@by Jia Lentz at 10/19/20 1640.Responsible Observer: Propoxyphene Urine Propoxyphene Screen 400.5220 (A) Methadone Ur Ql Scn See Note (Cutoff 200) None Note: [id number] E@Reenter manual test result: NEGATIVE@by Jia Lentz at 10/19/20 1640.Responsible Observer: Methadone Urine Methadone Screen 400.5190 (A) Methamphet Ur Ql Scn See Note (Cutoff 500) None Note: [id number] E@Reenter manual test result: NEGATIVE@by Jia Lentz at 10/19/20 1640.Responsible Observer: Methamphetamine Urine Methamphetamines Screen 400.5140 (A) oxyCODONE Ur Ql Scn See Note (Cutoff 100) None Note: [id number] E@Reenter manual test result: NEGATIVE@by Jia Lentz at 10/19/20 1640.Responsible Observer: Oxycodone Urine Oxycodone Screen 400.5210 (A) Buprenorphine Ur Ql See Note (Cutoff 10) None Note: [id number] E@Reenter manual test result: NEGATIVE@by Jia Lentz at 10/19/20 1640.Responsible Observer: Buprenorphine Urine Buprenorphine Screen 400.5230 (A) Amphetamines Ur Ql Scn>500 ng/mL See Note (Cutoff 500) None Note: [id number] E@Reenter manual test result: NEGATIVE@by Jia Lentz at 10/19/20 1640.Responsible Observer: Amphetamines Urine Amphetamines Screen 400.5160 (A) Barbiturates Ur Ql Scn>200 ng/mL See Note (Cutoff 200) None Note: [id number] E@Reenter manual test result: NEGATIVE@by Jia Lentz at 10/19/20 1640.Responsible Observer: Barbiturates Urine Barbiturates 400.5200 (A) Reviewed by Maya Barron MD on 10/20; All test results are final unless otherwise noted. Reported Physicians [facility] Ordered by Maya Barron MD on 10/19/2020 Collected: 10/19/2020 Reported: 10/19/2020 16:40 Reported Physicians See Note None Note: Reported Physicians:Ordering: Les Vanegas: Fady Raza To: Maya Barron Reviewed by Maya Barron MD on 10/20; All test results are final unless otherwise noted. TSH w/ reflex to Free T4 [facility] Ordered by Maya Barron MD on 10/19/2020 Collected: 10/19/2020 Reported: 10/19/2020 16:08 TSH SerPl DL<=0.005 mIU/L-aCnc 1.66 MicroInternationalUnitsPerMilliLiter_[Arbitrary_Con (0.35-5. 50) N (Normal) Note: Responsible Observer: TSH TSH 600 .7060 (D) Reviewed by Maya Barron MD on 10/20; All test results are final unless otherwise noted. Reported Physicians [facility] Ordered by Maya Barron MD on 10/19/2020 Collected: 10/19/2020 Reported: 10/19/2020 16:08 Reported Physicians See Note None Note: Reported Physicians:Ordering: Les Vanegas: Fady Raza To: Maya Barron Reviewed by Maya Barron MD on 10/20; All test results are final unless otherwise noted. TROPONIN [facility] Ordered by Maya Barron MD on [...] are final unless otherwise noted. Reported Physicians [facility] Ordered by Maya Barron MD on 10/19/2020 Collected: 10/19/2020 Reported: 10/19/2020 16:10 Reported Physicians See Note None Note: Reported Physicians:Ordering: Les Vanegas: Fady Raza To: Maya Barron Reviewed by Maya Barron MD on 10/20; All test results are final unless otherwise noted. CRP, C-REACTIVE PROTEIN [facility] Ordered by Maya Barron MD on 10/19/2020 Collected: 10/19/2020 Reported: 10/19/2020 16:08 CRP SerPl-mCnc 7.5 MilliGramsPerLiter_[Mass_Concentration_Units] (0.0-5.0) H (High) Note: Responsible Observer: CRP C-Reacti ve Protein 401.4355 (H) Reviewed by Maya Barron MD on 10/20; All test results are final unless otherwise noted. SED RATE [facility] Ordered by Maya Barron MD on 10/19/2020 Collected: 10/19/2020 Reported: 10/19/2020 16:32 ESR Bld Qn Westrgrn 22 (0-20) H (High) Note: @Reenter manual test result: 22@by Jia Lentz at 10/19/20 1632.Responsible Observer: SED RATE SED RATE 100.6400 (B) Reviewed by Maya Barron MD on 10/20; All test results are final unless otherwise noted. Reported Physicians [facility] Ordered by Maya Barron MD on 10/19/2020 Collected: 10/19/2020 Reported: 10/19/2020 16:33 Reported Physicians See Note None Note: Reported Physicians:Ordering: Les Vanegas: Fady Raza To: Maya Barron Reviewed by Maya Barron MD on 10/20; All test results are final unless otherwise noted. CMP [facility] Ordered by Maya Barron MD on [...] unless otherwise noted. 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 Reported Physicians [facility] Ordered by Maya Barron MD on 10/19/2020 Collected: 10/19/2020 Reported: 10/19/2020 16:33 Reported Physicians See Note None Note: Reported Physicians:Ordering: Les Vanegasding: Fady Raza To: Maya Barron Reviewed by Maya Barron MD on 10/20; All test results are final unless otherwise noted. PT/PTT [facility] Ordered by Maya Barron MD on [...] are final unless otherwise noted. Reported Physicians [facility] Ordered by Maya Barron MD on 10/08/2020 Collected: 10/08/2020 Reported: 10/08/2020 03:22 Reported Physicians See Note None Note: Reported Physicians:Ordering: Sana Recinosending: Norman Annopy To: Maya Barron Reviewed by Maya Barron MD on 10/09; All test results are final unless otherwise noted. BMP [facility] Ordered by Maya Barron MD on [...] are final unless otherwise noted. Reported Physicians [facility] Ordered by Maya Barron MD on 10/08/2020 Collected: 10/08/2020 Reported: 10/08/2020 03:21 Reported Physicians See Note None Note: Reported Physicians:Ordering: Sana Recinosending: Sammie Ann To: Maya Barron Reviewed by Maya Barron MD on 10/09; All test results are final unless otherwise noted. 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 MAGNESIUM [facility] Ordered by Maya Barron MD on 10/08/2020 Collected: 10/08/2020 Reported: 10/08/2020 03:17 Magnesium SerPl-mCnc 1.8 MilliGramsPerDeciLiter_[Mass_Concentration_Units] (1.3-2.7) N (Normal) Note: Responsible Observer: Magnesium Ma gnesium 400.3300 (G) Reviewed by Maya Barron MD on 10/09; All test results are final unless otherwise noted. D-DIMER [facility] Ordered by Maya Barron MD on [...] are final unless otherwise noted. Reported Physicians [facility] Ordered by Maya Barron MD on 10/08/2020 Collected: 10/08/2020 Reported: 10/08/2020 03:27 Reported Physicians See Note None Note: Reported Physicians:Ordering: Sana Recinosending: Sammie Ann To: Maya Barron Reviewed by Maya Barron MD on 10/09; All test results are final unless otherwise noted. TSH w/ reflex to Free T4 [facility] Ordered by Maya Barron MD on 10/04/2020 Collected: 10/04/2020 Reported: 10/04/2020 17:42 TSH SerPl DL<=0.005 mIU/L-aCnc 1.92 MicroInternationalUnitsPerMilliLiter_[Arbitrary_Con (0.35-5. 50) N (Normal) Note: Responsible Observer: TSH TSH 600 .7060 (D) Reviewed by Maya Barron MD on 10/09; All test results are final unless otherwise noted. Reported Physicians [facility] Ordered by Maya Barron MD on 10/04/2020 Collected: 10/04/2020 Reported: 10/04/2020 17:42 Reported Physicians See Note None Note: Reported Physicians:Ordering: Les Vanegasding: Fady Raza To: Maya Barron Reviewed by Maya Barron MD on 10/09; All test results are final unless otherwise noted. 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 [facility] Ordered by Maya Barron MD on [...] are final unless otherwise noted. Reported Physicians [facility] Ordered by Maya Barron MD on 10/04/2020 Collected: 10/04/2020 Reported: 10/04/2020 17:42 Reported Physicians See Note None Note: Reported Physicians:Ordering: Les Vanegas: Fady Raza To: Maya Barron Reviewed by Maya Barron MD on 10/09; All test results are final unless otherwise noted. SED RATE [facility] Ordered by Maya Barron MD on 10/04/2020 Collected: 10/04/2020 Reported: 10/04/2020 18:05 ESR Bld Qn Westrgrn 16 (0-20) N (Normal) Note: @Reenter manual test result: 16@by Jia Lentz at 10/04/20 1805.Responsible Observer: SED RATE SED RATE 100.6400 (B) Reviewed by Maya Barron MD on 10/09; All test results are final unless otherwise noted. Reported Physicians [facility] Ordered by Maya Barron MD on 10/04/2020 Collected: 10/04/2020 Reported: 10/04/2020 18:06 Reported Physicians See Note None Note: Reported Physicians:Ordering: Les Vanegas: Fady Raza To: Maya Barron Reviewed by Maya Barron MD on 10/09; All test results are final unless otherwise noted. TROPONIN [facility] Ordered by Maya Barron MD on [...] are final unless otherwise noted. Reported Physicians [facility] Ordered by Maya Barron MD on 10/04/2020 Collected: 10/04/2020 Reported: 10/04/2020 17:35 Reported Physicians See Note None Note: Reported Physicians:Ordering: Les Vanegasding: Fady Raza To: Maya Barron Reviewed by Maya Barron MD on 10/09; All test results are final unless otherwise noted. 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 [facility] Ordered by Maya Barron MD on [...] are final unless otherwise noted. Reported Physicians [facility] Ordered by Maya Barron MD on 10/03/2020 Collected: 10/03/2020 Reported: 10/03/2020 20:03 Reported Physicians See Note None Note: Reported Physicians:Ordering: Yoli NapolesAttending: Charles Silva To: Maya Barron Reviewed by Maya Barron MD on 10/04; All test results are final unless otherwise noted. BHCG Quantitative [facility] Ordered by Maya Barron MD on 10/03/2020 Collected: 10/03/2020 Reported: 10/03/2020 20:23 B-HCG SerPl-aCnc 05132 MilliInternationalUnitsPerMilliLiter_[Arbitrary_Con (0-10) H (High) Note: @Instrument will [...] are final unless otherwise noted. Reported Physicians [facility] Ordered by Maya Barron MD on 10/03/2020 Collected: 10/03/2020 Reported: 10/03/2020 20:23 Reported Physicians See Note None Note: Reported Physicians:Ordering: Cliff Napolesending: Charles Silva To: Maya Barron Reviewed by Maya Barron MD on 10/04; All test results are final unless otherwise noted. TROPONIN [facility] Ordered by Maya Barron MD on [...] are final unless otherwise noted. Reported Physicians [facility] Ordered by Maya Barron MD on 10/03/2020 Collected: 10/03/2020 Reported: 10/03/2020 20:07 Reported Physicians See Note None Note: Reported Physicians:Ordering: Yoli NapolesAttending: Yoli SilvaCopy To: Maya Barron Reviewed by Maya Barron MD on 10/04; All test results are final unless otherwise noted. MANUAL DIFF [facility] Ordered by Maya Barron MD on [...] are final unless otherwise noted. Reported Physicians [facility] Ordered by Maya Barron MD on 10/03/2020 Collected: 10/03/2020 Reported: 10/03/2020 19:56 Reported Physicians See Note None Note: Reported Physicians:Ordering: Yoli NapolesAttending: Yoli SilvaCopyifan To: Maya Barron Reviewed by Maya Barron MD on 10/04; All test results are final unless otherwise noted. FREE T4 (LAB) [facility] Ordered by Maya Barron MD on 10/03/2020 Collected: 10/03/2020 Reported: 10/03/2020 20:08 T4 Free SerPl-mCnc 0.97 NanoGramsPerDeciLiter_[Mass_Concentration_Units] (0.89-1.76) N (Normal) Note: Responsible Observer: FREE T4 Free Thyroxine 600.7005 (D) Reviewed by Maya Barron MD on 10/04; All test results are final unless otherwise noted. Reported Physicians [facility] Ordered by Maya Barron MD on 10/03/2020 Collected: 10/03/2020 Reported: 10/03/2020 20:08 Reported Physicians See Note None Note: Reported Physicians:Ordering: Cliff Napolesending: Charles Silva To: Maya Barron Reviewed by Maya Barron MD on 10/04; All test results are final unless otherwise noted. ADD ON MICROSCOPIC [facility] Ordered by Maya Barron MD on 10/03/2020 Collected: 10/03/2020 Reported: 10/03/2020 19:52 ADD ON MICROSCOPIC See Note (0-5) None Note: NOTES OTHER/NOT INTERPRETED Bacteria UrnS Ql Micro SMALL AMOUNT Bacteria UrnS Ql Micro SMALL AMOUNT Bacteria UrnS Ql Micro L Bacteria UrnS Ql Micro Bacteria UrnS Ql Micro Bacteria UrnS Ql Micro Bacteria UrnS Ql Micro [id number] Bacteria UrnS Ql Micro Bacteria UrnS Ql [...] are final unless otherwise noted. Reported Physicians [facility] Ordered by Maya Barron MD on 10/03/2020 Collected: 10/03/2020 Reported: 10/03/2020 19:52 Reported Physicians See Note None Note: Reported Physicians:Ordering: Yoli NapolesAttending: Charles Silva To: Maya Barron Reviewed by Maya Barron MD on 10/04; All test results are final unless otherwise noted. UA W/ CULTURE IF ABNORMAL [facility] Ordered by Maya Barron MD on 10/03/2020 Collected: 10/03/2020 Reported: 10/03/2020 19:52 Urobilinogen Ur Ql See Note (0.2-1 EU/dl) None Note: 0.2 EU/dl0.2 EU/[id number] E U/dlResponsible Observer: UROBILINOGEN UROBILINOGEN 300.4500 (C) RBC # Ur Strip NEGATIVE (NEGATIVE) None Note: Responsible Observer: BLOOD BLOOD 300.4652 (C) Prot Ur Ql Strip See Note (NEGATIVE) None Note: [id number] EResponsible Observer: PROTEIN PROTEIN 300.3750 (C) Ketones Ur Ql Strip See Note (NEGATIVE) None Note: [id number] EResponsible Observer: KETONE KETONE 300.3900 (C) Bilirub Ur Ql Strip.auto See Note (NEGATIVE) None Note: [id number] EResponsible Observer: BILIRUBIN BILIRUBIN 300.4550 (C) Glucose Ur Strip.auto-mCnc NEGATIVE (NEGATIVE) None Note: Responsible Observer: GLUCOSE GLUC OSE 300.3850 (C) Appearance Ur See Note (CLEAR) None Note: CLEARCLEARLCLEARResponsible Observ er: APPEARANCE APPEARANCE 300.3400 (A) Color Ur See Note None Note: YELLOWYELLOWLYELLOWResponsible Obs erver: COLOR COLOR 300.3330 (A) Leukocyte esterase Ur Ql Strip See Note (NEGATIVE) None Note: [id number]@DO MICR O!!!!A Culture has been added to this specimen per established criteriaResponsible Observer: LEUKOCYTES LEUKOCYTES 300.3576 (C) Nitrite Ur Ql Strip See Note (NEGATIVE) None Note: [id number] EResponsible Observer: NITRITE NITRITE 300.3652 (B) pH [...] are final unless otherwise noted. Urine culture [facility] Ordered by Maya Barron MD on 10/03/2020 Collected: 10/03/2020 Reported: 10/04/2020 13:10 Bacteria Ur Cult See Note None Note: NGNo growth.L1NG NOTES See Note None Note: @10/03/201951: Urine culture adde d. RFLXG = CULT.ADD. Reviewed by Maya Barron MD on 10/04; All test results are final unless otherwise noted. Reported Physicians [facility] Ordered by Maya Barron MD on 10/03/2020 Collected: 10/03/2020 Reported: 10/04/2020 13:10 Reported Physicians See Note None Note: Reported Physicians:Ordering: Yoli NapolesAttending: Charles Silva To: Maya Barron Reviewed by Maya Barron MD on 10/04; All test results are final unless otherwise noted. BHCG, QUANTITATIVE [facility] Ordered by Maya Barron MD on 09/18/2020 Collected: 09/18/2020 Reported: 09/18/2020 20:21 [id number] MilliInternationalUnitsPerMilliLiter_[Arbitrary_Con (0-10) H (High) Note: APPROXIMATE GESTATION [...] are final unless otherwise noted. Reported Physicians [facility] Ordered by Maya Barron MD on 09/18/2020 Collected: 09/18/2020 Reported: 09/18/2020 20:22 Reported Physicians See Note None Note: Reported Physicians:Ordering: Cliff Napolesending: Charles Silva To: Maya Barron Reviewed by Maya Barron MD on 09/20; All test results are final unless otherwise noted. 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 [facility] Ordered by Maya Barron MD on [...] are final unless otherwise noted. Reported Physicians [facility] Ordered by Maya Barron MD on 09/18/2020 Collected: 09/18/2020 Reported: 09/18/2020 20:10 Reported Physicians See Note None Note: Reported Physicians:Ordering: Yoli NapolesAttending: Charles Silva To: Maya Barron Reviewed by Maya Barron MD on 09/20; All test results are final unless otherwise noted. TROPONIN [facility] Ordered by Maya Barron MD on [...] are final unless otherwise noted. Reported Physicians [facility] Ordered by Maya Barron MD on 09/18/2020 Collected: 09/18/2020 Reported: 09/18/2020 20:10 Reported Physicians See Note None Note: Reported Physicians:Ordering: Yoli NapolesAttending: Charles Silva To: Maya Barron Reviewed by Maya Barron MD on 09/20; All test results are final unless otherwise noted. Urine culture [facility] Ordered by Cat Gutierrez RPA on 09/11/2020 Collected: 09/11/2020 Reported: 09/12/2020 13:11 Bacteria Ur Cult See Note None Note: NGNo growth.L1NG NOTES See Note None Note: GEORGIANA PICKARD IN OTHER NAME IN MEDICAL RECORD Reviewed by Cat Gutierrez RPA on 09/12; All test results are final unless otherwise noted. Reported Physicians [facility] Ordered by Cat Gutierrez RPA on 09/11/2020 Collected: 09/11/2020 Reported: 09/12/2020 13:11 Reported Physicians See Note None Note: Reported Physicians:Ordering: Cat ConwayAttending: Cat Gutierrez Reviewed by Cat Gutierrez RPA on 09/12; All test results are final unless otherwise noted. UA W/ CULTURE IF ABNORMAL [facility] Ordered by Maya Barron MD on 09/10/2020 Collected: 09/10/2020 Reported: 09/10/2020 17:48 Urobilinogen Ur Ql See Note (0.2-1 EU/dl) None Note: 0.2 EU/dl0.2 EU/[id number] E U/dlResponsible Observer: UROBILINOGEN UROBILINOGEN 300.4500 (C) RBC # Ur Strip NEGATIVE (NEGATIVE) None Note: Responsible Observer: BLOOD BLOOD 300.4652 (C) Prot Ur Ql Strip See Note (NEGATIVE) None Note: [id number] EResponsible Observer: PROTEIN PROTEIN 300.3750 (C) Ketones Ur Ql Strip See Note (NEGATIVE) None Note: [id number] ble Observer: KETONE KETONE 300.3900 (C) Bilirub Ur Ql Strip.auto See Note (NEGATIVE) None Note: [id number] EResponsible Observer: BILIRUBIN BILIRUBIN 300.4550 (C) Glucose Ur Strip.auto-mCnc NEGATIVE (NEGATIVE) None Note: Responsible Observer: GLUCOSE GLUC OSE 300.3850 (C) Appearance Ur See Note (CLEAR) None Note: CLEARCLEARLCLEARResponsible Observ er: APPEARANCE APPEARANCE 300.3400 (A) Color Ur See Note None Note: YELLOWYELLOWLYELLOWResponsible Obs erver: COLOR COLOR 300.3330 (A) Leukocyte esterase Ur Ql Strip See Note (NEGATIVE) None Note: [id number] EResponsible Observer: LEUKOCYTES LEUKOCYTES 300.3576 (C) Nitrite Ur Ql Strip See Note (NEGATIVE) None Note: [id number] EResponsible Observer: NITRITE NITRITE 300.3652 (B) pH [...] are final unless otherwise noted. Reported Physicians [facility] Ordered by Maya Barron MD on 09/10/2020 Collected: 09/10/2020 Reported: 09/10/2020 17:48 Reported Physicians See Note None Note: Reported Physicians:Ordering: Les Vanegas AAttending: Fady Raza To: Maya Barron Reviewed by Maya Barron MD on 09/11; All test results are final unless otherwise noted. BHCG, QUANTITATIVE [facility] Ordered by Maya Barron MD on 09/10/2020 Collected: 09/10/2020 Reported: 09/10/2020 15:48 B-HCG [facility] [address] MilliInternationalUnitsPerMilliLiter_[Arbitrary_Con (0-10) H (High) Note: @Instrument will [...] are final unless otherwise noted. Reported Physicians [facility] Ordered by Maya Barron MD on 09/10/2020 Collected: 09/10/2020 Reported: 09/10/2020 15:49 Reported Physicians See Note None Note: Reported Physicians:Ordering: Les Vanegas: Fady Raza To: Maya Barron Reviewed by Maya Barron MD on 09/11; All test results are final unless otherwise noted. ABO/Rh Type [facility] Ordered by Maya Barron MD on 09/10/2020 Collected: 09/10/2020 Reported: 09/10/2020 15:43 Blood bank studies Yes None Note: Responsible Observer: Prev. Histor y? Previous History? 100.0800 (A) Blood Type See Note None Note: OPO PositiveLResponsible Observer: Blood Type Blood Type 110.0950 (C) Reviewed by Maya Barron MD on 09/11; All test results are final unless otherwise noted. Reported Physicians [facility] Ordered by Maya Barron MD on 09/10/2020 Collected: 09/10/2020 Reported: 09/10/2020 15:43 Reported Physicians See Note None Note: Reported Physicians:Ordering: Les Vanegas: Fady Raza To: Maya Barron Reviewed by Maya Barron MD on 09/11; All test results are final unless otherwise noted. COVID QUEST [facility] Ordered by Maya Barron MD on [...] findings,re- testing should be considered in consultation with[facility] health authorities. Laboratory test results shouldalways be considered in the context of clinicalobservations and epidemiological data in making a finaldiagnosis and patient management decisions.Please review the "Fact Sheets" and FDA authorizedlabeling available for health care providers andpatients using the following websites:https://www.[facility] .Trusera/home/Covid-19/HCP/NAAT/fact-xysaz9rtrca://www.[facility].[employer]/home/Cov id-19/Patients/NAAT/fact-wogyc3Dzwx test has been authorized by the FDA under anEmergency Use Authorization (EUA) for use by authorizedlaboratories.Due to the current public health emergency, [facility] is receiving a high volume of samples [...] information about COVID-19 can be foundat the [employer] website:www.[facility].Trusera/Covid19.THIS TEST WAS PERFORMED AT:[facility] [id number] ONEILLesponsible Observer: COVID-19 COVID-19 ТАТЬЯНА (SARS-CoV-2) [id number] 914.7502 ([facility]) Reviewed by Maya Barron MD on 08/25; All test results are final unless otherwise noted. Reported Physicians [facility] Ordered by Maya Barron MD on 08/23/2020 Collected: 08/23/2020 Reported: 08/25/2020 03:57 Reported Physicians See Note None Note: Reported Physicians:Ordering: Sana Recinosending: Sammie Ann To: Maya Barron Reviewed by Maya Barron MD on 08/25; All test results are final unless otherwise noted. Rapid Strep [facility] Ordered by Maya Barron MD on 08/15/2020 [address] [place], [address] Collected: 08/15/2020 Reported: 08/15/2020 11:47 tel :[phone] strep antigen normal (negative) N (Normal) Reviewed by Maya Barron MD on 08/15; All test results are final unless otherwise noted. Urinalysis w/out microscopy [facility] Ordered by Maya Barron MD on 08/15/2020 [address] [place], [address] Specimen Source: Urine Collected: 08/15/2020 Reporte d: 08/15/2020 11:03 tel:[phone] bilirubin normal (neg) N (Normal) blood normal [...] unless otherwise noted. Extended hours FLU/COV2 NAAT [facility] Ordered by Maya Barron MD on 08/15/2020 Collected: 08/15/2020 Reported: 08/15/2020 15:55 Extended hours FLU/COV2 NAAT See Note None Note: TNPNo Reportable ResultLTNPNo Repo rtable GglsevY8GLR NOTES See Note None Note: GEORGIANA PICKARD IN OTHER NAME IN MEDICAL RECORD Reviewed by Maya Barron MD on 08/16; All test results are final unless otherwise noted. Reported Physicians [facility] Ordered by Maya Barron MD on 08/15/2020 Collected: 08/15/2020 Reported: 08/15/2020 15:55 Reported Physicians See Note None Note: Reported Physicians:Ordering: Maya AlvarengaAttending: Maya Barron Reviewed by Maya Barron MD on 08/16; All test results are final unless otherwise noted. Sweta Raquel SARS/FLU [facility] Ordered by Maya Barron MD on 08/15/2020 Collected: 08/15/2020 Reported: 08/15/2020 15:55 Sweta Raquel SARS/FLU See Note None Note: Sweta Raquel is a rapid, automated q ualitative anddifferentiation of Influenza type A,B and LTIZ-AKE-6YZXC-RT-PCR testNORMAL VALUE IS "NOT DETECTED".Limitations of the sweta raquel Influenza A/B & TQYJ-CUM-1jostn method.Modifications to manufacturers recommendation and proceduresmay alter performance of the test.Negative results do not preclude Influenza A,B or SARS- CPK9zmeesmbboi and should not be used as the [...] out diseases caused by other bacterialor viral pathogens.03563-4SEOD-iea CoV RNA Resp Ql ТАТЬЯНА+probeLNNSARS SARS-COV-2 NOT [id number]-WNW-3 NOT [id number] RNA Resp Ql ТАТЬЯНА+probeLNNFLUAInfluenza A Not [id number] A Not Dgagayzv86061-0ROWZZ RNA Resp Ql ТАТЬЯНА+probeLNNINBInfluenza B Not [id number] B Not Detected NOTES See Note None Note: GEORGIANA PICKARD IN OTHER NAME IN MEDICAL RECORD Reviewed by Maya Barron MD on 08/18; All test results are final unless otherwise noted. Throat culture [facility] Ordered by Maya Barron MD on 08/15/2020 Collected: 08/15/2020 Reported: 08/17/2020 06:37 Throat culture results Normal Deisy None Reviewed by Maya Barron MD on 08/18; All test results are final unless otherwise noted. Reported Physicians [facility] Ordered by Maya Barron MD on 08/15/2020 Collected: 08/15/2020 Reported: 08/17/2020 06:37 Reported Physicians See Note None Note: Reported Physicians:Ordering: Maya AlvarengaAttending: Maya Barron Reviewed by Maya Barron MD on 08/18; All test results are final unless otherwise noted. HPVI [facility] Ordered by Cat Gutierrez RPA on 08/09/2020 Collected: 08/09/2020 Reported: 08/15/2020 06:53 Thin Prep Vag See Note None Note: See scanned reportSee scanned repo rtLSee scanned reportResponsible Observer: TP w/HPV if ASC Thinprep w/HPV if ASCUS 805.1454 ([facility]) NOTES See Note None Note: YZE82-31Ctntjkfmst Technique: BRUS H-SPATULABody Site: CERVIX Reviewed by Cat Gutierrez RPA on 08/15; All test results are final unless otherwise noted. Reported Physicians [facility] Ordered by Cat Gutierrez RPA on 08/09/2020 Collected: 08/09/2020 Reported: 08/15/2020 06:53 Reported Physicians See Note None Note: Reported Physicians:Ordering: Atte nding: Rigo Gutierrez To: Maya Barron Reviewed by Cat Gutierrez RPA on 08/15; All test results are final unless otherwise noted. AFFIRM [facility] Ordered by Cat Gutierrez RPA on 08/09/2020 Collected: 08/09/2020 Reported: 08/11/2020 06:52 Dionna species DNA Probe NOT DETECTED (NOT DETECTED) None Note: THIS TEST WAS PERFORMED AT:[facility] [address]THEYAQCLAUDY ONEILLesponsible Observer: Dionna DNA Dionna species DNA Probe [id number] 913.2350 ([facility]) Gardnerella DNA Probe DETECTED (NOT DETECTED) H (High) Note: Increased levels of G. vaginalis m ay not be significantin the absence of signs and symptoms of bacterialvaginosis.Responsible Observer: Gardnerella DNA Gardnerella DNA Probe [id number] 913.234 ([facility]) Trichomonas DNA Probe NOT DETECTED (NOT DETECTED) None Note: Responsible Observer: Trichomonas DNA Trichomonas DNA Probe [id number] 913.2340 ([facility]) NOTES See Note None Note: PICKARD:IN OTHER NAME IN MEDICAL RECORD Reviewed on 08/11/2020; All test result s are final unless otherwise noted. Reported Physicians [facility] Ordered by Cat Gutierrez RPA on 08/09/2020 Collected: 08/09/2020 Reported: 08/11/2020 06:52 Reported Physicians See Note None Note: Reported Physicians:Ordering: Atte nding: Cat GutierrezCopy To: Maya Barron Reviewed on 08/11/2020; All test result s are final unless otherwise noted. GCAMP [facility] Ordered by Cat Gutierrez RPA on 08/09/2020 Collected: 08/09/2020 Reported: 08/11/2020 06:52 C trach rRNA XXX Ql ТАТЬЯНА+probe See Note (NOT DETECTED) None Note: NOT DETECTEDNOT [id number] 6NOT DETECTEDResponsible Observer: C.Trach RNA Chlamydia trachomatis DNA-ТАТЬЯНА [id number] 913.9900 ([facility]) N gonorrhoea rRNA XXX Ql ТАТЬЯНА+probe See Note (NOT DETECTED) None Note: NOT DETECTEDNOT [id number] 6NOT DETECTEDResponsible Observer: GC RNA Neisseria gonorrhoeae DNA -ТАТЬЯНА 64553713 913.9905 ([facility]) Chlamydia/GC DNA Note SEE NOTE None Note: The analytical performance charact eristics of thisassay, when used to test SurePath(TM) specimens have beendetermined by [employer]. The modifications havenot been cleared or approved by the FDA. This assay hasbeen validated pursuant to the CLIA regulations and isused for clinical purposes.For additional information, please refer totps://education.[employer].Trusera/faq/ORY378(This link is being provided for information/educational purposes only.)THIS TEST WAS PERFORMED AT:[facility] [address]OSEAS MEANSMDResponsible Observer: GC/Chlam Note Chlamydia/GC DNA Note [id number] 913.9907 (A) NOTES See Note None Note: PICKARD:IN OTHER NAME IN MEDICAL RECORD Reviewed by Cat Gutierrez RPA on 08/12; All test results are final unless otherwise noted. Reported Physicians [facility] Ordered by Cat Gutierrez RPA on 08/09/2020 Collected: 08/09/2020 Reported: 08/11/2020 06:52 Reported Physicians See Note None Note: Reported Physicians:Ordering: Atte nding: Rigo Gutierrez To: Maya Barron Reviewed by Cat Gutierrez RPA on 08/12; All test results are final unless otherwise noted. URINALYSIS [facility] Ordered by Cat Gutierrez RPA on 08/09/2020 Collected: 08/09/2020 Reported: 08/09/2020 12:23 Urobilinogen Ur Ql See Note (0.2-1 EU/dl) None Note: 1 EU/dl1 EU/[id number] EU/dlRe sponsible Observer: UROBILINOGEN UROBILINOGEN 300.4500 (C) RBC # Ur Strip NEGATIVE (NEGATIVE) None Note: Responsible Observer: BLOOD BLOOD 300.4650 (C) Prot Ur Ql Strip See Note (NEGATIVE) None Note: [id number] ble Observer: PROTEIN PROTEIN 300.3750 (C) Ketones Ur Ql Strip See Note (NEGATIVE) None Note: [id number] ble Observer: KETONE KETONE 300.3900 (C) Bilirub Ur Ql Strip.auto See Note (NEGATIVE) None Note: [id number] EResponsible Observer: BILIRUBIN BILIRUBIN 300.4550 (C) Glucose Ur Strip.auto-mCnc NEGATIVE (NEGATIVE) None Note: Responsible Observer: GLUCOSE GLUC OSE 300.3850 (C) Appearance Ur See Note (CLEAR) None Note: CLEARCLEARLCLEARResponsible Observ er: APPEARANCE APPEARANCE 300.3400 (A) Color Ur See Note None Note: DARK YELLOWDARK YELLOWLDARK YELLOW Responsible Observer: COLOR COLOR 300.3300 (A) Leukocyte esterase Ur Ql Strip See Note (NEGATIVE) None Note: [id number]@DO MICR O!!!!Responsible Observer: LEUKOCYTES LEUKOCYTES 300.3575 (C) Nitrite Ur Ql Strip See Note (NEGATIVE) None Note: [id number] EResponsible Observer: NITRITE NITRITE 300.3650 (B) pH [...] are final unless otherwise noted. Urine culture [facility] Ordered by Cat Gutierrez RPA on 08/09/2020 Collected: 08/09/2020 Reported: 08/10/2020 08:33 Bacteria Ur Cult See Note None Note: NGNo growth.L1NG Reviewed by Cat Gutierrez RPA on 08/14; All test results are final unless otherwise noted. ADD ON MICROSCOPIC [facility] Ordered by Cat Gutierrez RPA on 08/09/2020 Collected: 08/09/2020 Reported: 08/09/2020 12:23 ADD ON MICROSCOPIC See Note (0-5) H (High) Note: NOTES OTHER/NOT INTERPRETED Bacteria UrnS Ql Micro SMALL AMOUNT Bacteria UrnS Ql Micro SMALL AMOUNT Bacteria UrnS Ql Micro L Bacteria UrnS Ql Micro Bacteria UrnS Ql Micro Bacteria UrnS Ql Micro Bacteria UrnS Ql Micro [id number] Bacteria UrnS Ql Micro Bacteria UrnS Ql [...] Ql Micro Mucous Threads UrnS Ql Micro [id number] Mucous Threads UrnS Ql Micro Mucous Threads UrnS Ql Micro MODERATE AMOUNT WBC # Ur Manual 5-8 @08/09/20 1210: UA W/ MICRO added. RFLXG = UMIC.Method of Collection:: Clean CatchResponsible Observer: WBC WBC 300.5000 (A) Reviewed by Cat Gutierrez [facility] on 08/12; All test results are final unless otherwise noted. Reported Physicians [facility] Ordered by Cat Gutierrez [facility] on 08/09/2020 Collected: 08/09/2020 Reported: 08/10/2020 17:47 Reported Physicians See Note None Note: Reported Physicians:Ordering: Atte oralia: Cat GutierrezCopy To: Maya Barron Reviewed by Cat Gutierrez [facility] on 08/12; All test results are final unless otherwise noted. MEDMATCH [facility] Ordered by Cat Brenda [facility] on 08/09/2020 Collected: 08/09/2020 Reported: 08/13/2020 15:56 MEDMATCH See scanned report None Note: Responsible Observer: MEDMATCH MED MATCH [phone] ([facility]) Reviewed by Cat Gutierrez [facility] on 08/14; All test results are final unless otherwise noted. Reported Physicians [facility] Ordered by Cat Brenda [facility] on 08/09/2020 Collected: 08/09/2020 Reported: 08/13/2020 15:56 Reported Physicians See Note None Note: Reported Physicians:Ordering: Atte nding: Gaudencio GutierrezanaCopy To: Maya Barron Reviewed by Cat Gutierrez RPA on 08/14; All test results are final unless otherwise noted. 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 TSH [facility] Ordered by Cat Gutierrez RPA on 08/09/2020 Collected: 08/09/2020 Reported: 08/09/2020 14:24 TSH SerPl DL<=0.005 mIU/L-aCnc 1.18 MicroInternationalUnitsPerMilliLiter_[Arbitrary_Con (0.35-5. 50) N (Normal) Note: Responsible Observer: TSH TSH 600 .7055 (D) Reviewed by Cat Gutierrez RPA on 08/14; All test results are final unless otherwise noted. Lead (Venous) Wh.Bld [facility] Ordered by Cat Gutierrez RPA on 08/09/2020 Collected: 08/09/2020 Reported: 08/10/2020 17:47 Lead Bld-sCnc <1 (<5) None Note: See Note 1Note 1This test was faith granados and its analytical performancecharacteristics have been determined by [employer]. It has not been cleared or approved by theA. This assay has been validated pursuant to the CLIAregulations and is used for clinical purposes.THIS TEST WAS PERFORMED AT:[facility] [address]DYZTQNCLAUDY ONEILLesponsible Observer: Lead, WB Lead, Whole Blood [id number] 911.4040 ([facility]) NOTES See Note None Note: Patient Street Address: [address] [place] [address] [address] City: [place]: [place] Zip Code: [address]Djhkphz Reviewed by Cat Gutierrez RPA on 08/14; All test results are final unless otherwise noted. ncPN REF [facility] Ordered by Cat Gutierrez RPA on 08/09/2020 Collected: 08/09/2020 Reported: 08/13/2020 15:26 T pallidum Ab Ser Ql Aggl See Note (Nonreactive) None Note: [id number] onreactiveResponsible Observer: TP-PA Treponema pallidum Ab (TP-PA) [id number] 908.0286 ([facility]) HIV1 RNA SerPl Ql ТАТЬЯНА+probe See Note None Note: TNPNo Reportable ResultLTNPNo Repo rtable ResultLLEP.LIVENTNPResponsible Observer: HIV 1 RNA, QL T HIV 1 RNA, QL TMA [id number] 908.0254 ([facility]) HBV surface Ag SerPl Ql IA See Note (NON-REACTIVE) None Note: IJL-UFRWNHPRJTQ-[id number] 5NON-REACTIVEResponsible Observer: HBSAG Hepatitis B Surface Antigen 15576276 910.2004 ([facility]) RUBV IgG SerPl IA-aCnc 1.76 None Note: Index Interpretatio n ----- <0.90 Not consistent with immunity 0.90-0.99 Equivocal > or = 1.00 Consistent with immunityThe presence of rubella IgG antibody suggestsimmunization or past or current infection withrubella virus.THIS TEST WAS PERFORMED AT:[facility] [address]XBJCGSCLAUDY ONEILLesponsible Observer: Rubella IgG Ab Rubella IgG Ab [id number] 911.2840 ([facility]) HIV1 Ab SerPlBld Ql IA.rapid See Note None Note: TNPNo Reportable ResultLTNPNo Repo rtable ResultLLEP.LIVENTNPResponsible Observer: HIV 1 AB HIV 1 AB [id number] 908.0250 ([facility]) HBsAg Confirmation See Note None Note: TNPNo Reportable ResultLTNPNo Repo rtable ResultLLEP.LIVENTNPResponsible Observer: HBsAg Confirm HBsAg Confirmation [id number] 910.2006 ([facility]) HIV (1&2) Screen, 4th Gen [...] for this purpose.For additional information please refer tohttp://education.[employer]/faq/XNA037(This link is being provided for informational/educational purposes only.)The performance of this assay has not been clinicallyvalidated in patients less than 2 years old.THIS TEST WAS PERFORMED AT:[facility] [address]HTCSJRCLAUDY ONEILLesponsible Observer: HIV ABS HIV (1&2) Screen, 4th Gen [id number] 908.0228 ([facility]) Reviewed by Cat Gutierrez RPA on 08/14; All test results are final unless otherwise noted. Reported Physicians [facility] Ordered by Cat Gutierrez RPA on 08/09/2020 Collected: 08/09/2020 Reported: 08/13/2020 15:27 Reported Physicians See Note None Note: Reported Physicians:Ordering: Atte oralia: Rigo Gutierrez To: Maya Barron Reviewed by Cat Gutierrez RPA on 08/14; All test results are final unless otherwise noted. Varicella-Zoster IgG Antibody [facility] Ordered by Cat Gutierrez RPA on 08/09/2020 Collected: 08/09/2020 Reported: 08/10/2020 17:47 VZV IgG Ser [facility] 242.10 None Note: Index Interpr etation [...] Antibody Immunity Screen, ACIF.THIS TEST WAS PERFORMED AT:[facility] [id number] ME RATI,MDResponsible Observer: VARICELLA IGG Varicella-Zoster IgG Antibody 60142533 915.2981 ([facility]) NOTES See Note None Note: Patient Street Address: [address] [place], [place] [address] [facility] State: [place] Zip Code: [address]Hamxcgq Reviewed by Cat Gutierrez RPA on 08/12; All test results are final unless otherwise noted. HCV RFX ТАТЬЯНА [facility] Ordered by Cat Gutierrez RPA on 08/09/2020 Collected: 08/09/2020 Reported: 08/10/2020 17:47 HCV Ab Ser Ql See Note (NON-REACTIVE) None Note: HNV-OANZPBAVDCO-[id number] 7NON-REACTIVEResponsible Observer: HEP C ANTIBODY Hepatitis C Antibody 08625538 914.8305 ([facility]) HCV RNA Qualitative (ТАТЬЯНА) 0.54 (<1.00) None Note: HCV antibody was non-reactive. The re is no laboratoryevidence of HCV infection.In most cases, no further action is required. However,if recent HCV exposure is suspected, a test for HCV RNA(test code 05071) is suggested.For additional information please refer tohttp://education.[employer]/faq/CSN82d3(This link is being provided for informational/educational purposes only.)THIS TEST WAS PERFORMED AT:[facility] [address]SHELLIJUANCHO MEANS,MDResponsible Observer: SIG TO C/O SIGNAL TO CUTOFF 85939933 914.8335 ([facility]) NOTES See Note None Note: Patient Street Address: [address] [place], [place] [address]Patient City: [place] State: [place]Patient Zip Code: [address]Rhsakcu Reviewed by Cat Gutierrez RPA on 08/12; All test results are final unless otherwise noted. Reported Physicians [facility] Ordered by Cat Gutierrez RPA on 08/09/2020 Collected: 08/09/2020 Reported: 08/10/2020 17:47 Reported Physicians See Note None Note: Reported Physicians:Ordering: Jannet nding: Rigo Gutierrez To: Maya Barron Reviewed by Cat Gutierrez RPA on 08/12; All test results are final unless otherwise noted. Type and Screen [facility] Ordered by Cat Gutierrez RPA on 08/09/2020 Collected: 08/09/2020 Reported: 08/09/2020 12:39 Blood bank studies Yes None Note: Responsible Observer: Prev. Histor y? Previous History? 100.0800 (A) Antibody Screen (PN) NEGATIVE None Note: Responsible Observer: Antibody Scr een Antibody Screen (PN) 200.0002 (C) Blood Type See Note None Note: OPO PositiveLResponsible Observer: Blood Type Blood Type 110.0950 (C) Reviewed by Cat Gutierrez [facility] on 08/10; All test results are final unless otherwise noted. Reported Physicians [facility] Ordered by Cat Gutierrez RPA on 08/09/2020 Collected: 08/09/2020 Reported: 08/09/2020 12:39 Reported Physicians See Note None Note: Reported Physicians:Ordering: Lisa Conwayending: Rigo Gutierrez To: Maya Barron Reviewed by Cat Gutierrez [facility] on 08/10; All test results are final unless otherwise noted. BHCG, QUANTITATIVE [facility] Ordered by Cat Gutierrez RPA on 08/08/2020 Collected: 08/08/2020 Reported: 08/08/2020 11:53 B-HCG [facility] [address] MilliInternationalUnitsPerMilliLiter_[Arbitrary_Con (0-10) H (High) Note: @Instrument will [...] are final unless otherwise noted. Reported Physicians [facility] Ordered by Cat Gutierrez RPA on 08/08/2020 Collected: 08/08/2020 Reported: 08/08/2020 11:54 Reported Physicians See Note None Note: Reported Physicians:Ordering: Atte nding: Rigo Gutierrez To: Maya Barron Reviewed by Cat Gutierrez RPA on 08/08; All test results are final unless otherwise noted. Type and Screen [facility] Ordered by Cat Gutierrez RPA on [...] are final unless otherwise noted. Reported Physicians [facility] Ordered by Cat Gutierrez RPA on 08/01/2020 Collected: 08/01/2020 Reported: 08/01/2020 06:03 Reported Physicians See Note None Note: Reported Physicians:Ordering: Cristino FerreiraAttending: Jos Rivas To: Maya Barron Reviewed by Cat Gutierrez RPA on 08/01; All test results are final unless otherwise noted. BHCG, QUANTITATIVE [facility] Ordered by Cat Gutierrez RPA on 08/01/2020 Collected: 08/01/2020 Reported: 08/01/2020 02:26 B-HCG SerPl-aCnc 16026 MilliInternationalUnitsPerMilliLiter_[Arbitrary_Con (0-10) H (High) Note: @Instrument will [...] are final unless otherwise noted. Reported Physicians [facility] Ordered by Cat Gutierrez RPA on 08/01/2020 Collected: 08/01/2020 Reported: 08/01/2020 02:26 Reported Physicians See Note None Note: Reported Physicians:Ordering: Aj Ferreiraending: Jos Rivas To: Maya Barron Reviewed by Cat Gutierrez RPA on 08/01; All test results are final unless otherwise noted. 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 [facility] Ordered by Cat Gutierrez RPA on [...] are final unless otherwise noted. Reported Physicians [facility] Ordered by Cat Gutierrez RPA on 08/01/2020 Collected: 08/01/2020 Reported: 08/01/2020 02:26 Reported Physicians See Note None Note: Reported Physicians:Ordering: Aj Ferreiraending: Jos Rivas To: Maya Barron Reviewed by Cta Gutierrez RPA on 08/01; All test results are final unless otherwise noted. ADD ON MICROSCOPIC [facility] Ordered by Cat Gutierrez RPA on 08/01/2020 Collected: 08/01/2020 Reported: 08/01/2020 01:01 ADD ON MICROSCOPIC See Note (0-5) None Note: NOTES OTHER/NOT INTERPRETED Bacteria UrnS Ql Micro MODERATE AMOUNT Bacteria UrnS Ql Micro MODERATE AMOUNT Bacteria UrnS Ql Micro L Bacteria UrnS Ql Micro Bacteria UrnS Ql Micro Bacteria UrnS Ql Micro Bacteria UrnS Ql Micro [id number] Bacteria UrnS Ql Micro Bacteria UrnS Ql [...] are final unless otherwise noted. Reported Physicians [facility] Ordered by Cat Gutierrez RPA on 08/01/2020 Collected: 08/01/2020 Reported: 08/01/2020 01:01 Reported Physicians See Note None Note: Reported Physicians:Ordering: Aj Ferreiraending: Jos Rivas To: Maya Barron Reviewed by Cat Gutierrez RPA on 08/01; All test results are final unless otherwise noted. UA W/ CULTURE IF ABNORMAL [facility] Ordered by Cat Gutierrez RPA on 08/01/2020 Collected: 08/01/2020 Reported: 08/01/2020 01:01 Urobilinogen Ur Ql See Note (0.2-1 EU/dl) None Note: 0.2 EU/dl0.2 EU/[id number] E U/dlResponsible Observer: UROBILINOGEN UROBILINOGEN 300.4500 (C) RBC # Ur Strip SMALL (NEGATIVE) None Note: @DO MICRO!!!!Responsible Observer: BLOOD BLOOD 300.4652 (C) Prot Ur Ql Strip See Note (NEGATIVE) None Note: [id number] EResponsible Observer: PROTEIN PROTEIN 300.3750 (C) Ketones Ur Ql Strip See Note (NEGATIVE) None Note: 15 mg/dL15 mg/kQI416469754095 mg/d LResponsible Observer: KETONE KETONE 300.3900 (C) Bilirub Ur Ql Strip.auto See Note (NEGATIVE) None Note: [id number] EResponsible Observer: BILIRUBIN BILIRUBIN 300.4550 (C) Glucose Ur Strip.auto-mCnc NEGATIVE (NEGATIVE) None Note: Responsible Observer: GLUCOSE GLUC OSE 300.3850 (C) Appearance Ur See Note (CLEAR) None Note: CLEARCLEARLCLEARResponsible Observ er: APPEARANCE APPEARANCE 300.3400 (A) Color Ur See Note None Note: YELLOWYELLOWLYELLOWResponsible Obs erver: COLOR COLOR 300.3330 (A) Leukocyte esterase Ur Ql Strip See Note (NEGATIVE) None Note: [id number]@DO MICR O!!!!A Culture has been added to this specimen per established criteriaResponsible Observer: LEUKOCYTES LEUKOCYTES 300.3576 (C) Nitrite Ur Ql Strip See Note (NEGATIVE) None Note: [id number] EResponsible Observer: NITRITE NITRITE 300.3652 (B) pH [...] are final unless otherwise noted. Urine culture [facility] Ordered by Cat Gutierrez [facility] on 08/01/2020 Collected: 08/01/2020 Reported: 08/02/2020 07:41 Urine culture result See Note None Note: Greater than 100,000 CFU/MLLactoba cilli no senst done NOTES See Note None Note: @08/01/20 0101: Urine culture adde d. RFLXG = CULT.ADD. Reviewed by Cat Gutierrez RPA on 08/02; All test results are final unless otherwise noted. Reported Physicians [facility] Ordered by Cat Gutierrez [facility] on 08/01/2020 Collected: 08/01/2020 Reported: 08/02/2020 07:41 Reported Physicians See Note None Note: Reported Physicians:Ordering: Aj Ferreiraending: Jos Rivas To: Maya Barron Reviewed by Cat Gutierrez [facility] on 08/02; All test results are final unless otherwise noted. BHCG, QUANTITATIVE [facility] Ordered by Cat Gutierrez RPA on 07/31/2020 Collected: 07/31/2020 Reported: 07/31/2020 16:53 B-HCG SerPl-aCnc 70180 MilliInternationalUnitsPerMilliLiter_[Arbitrary_Con (0-10) H (High) Note: @Instrument will [...] are final unless otherwise noted. Reported Physicians [facility] Ordered by Cat Gutierrez RPA on 07/31/2020 Collected: 07/31/2020 Reported: 07/31/2020 16:53 Reported Physicians See Note None Note: Reported Physicians:Ordering: Atte nding: Cat Gutierrez Reviewed by Cat Gutierrez RPA on 08/01; All test results are final unless otherwise noted. UA W/ CULTURE IF ABNORMAL [facility] Ordered by Cat Gutierrez RPA on 07/27/2020 Collected: 07/27/2020 Reported: 07/27/2020 21:36 Urobilinogen Ur Ql See Note (0.2-1 EU/dl) None Note: 0.2 EU/dl0.2 EU/[id number] E U/dlResponsible Observer: UROBILINOGEN UROBILINOGEN 300.4500 (C) RBC # Ur Strip NEGATIVE (NEGATIVE) None Note: Responsible Observer: BLOOD BLOOD 300.4652 (C) Prot Ur Ql Strip See Note (NEGATIVE) None Note: [id number] EResponsible Observer: PROTEIN PROTEIN 300.3750 (C) Ketones Ur Ql Strip See Note (NEGATIVE) None Note: [id number] EResponsible Observer: KETONE KETONE 300.3900 (C) Bilirub Ur Ql Strip.auto See Note (NEGATIVE) None Note: [id number] EResponsible Observer: BILIRUBIN BILIRUBIN 300.4550 (C) Glucose Ur Strip.auto-mCnc NEGATIVE (NEGATIVE) None Note: Responsible Observer: GLUCOSE GLUC OSE 300.3850 (C) Appearance Ur See Note (CLEAR) None Note: CLEARCLEARLCLEARResponsible Observ er: APPEARANCE APPEARANCE 300.3400 (A) Color Ur See Note None Note: YELLOWYELLOWLYELLOWResponsible Obs erver: COLOR COLOR 300.3330 (A) Leukocyte esterase Ur Ql Strip See Note (NEGATIVE) None Note: [id number]@DO MICR O!!!!A Culture has been added to this specimen per established criteriaResponsible Observer: LEUKOCYTES LEUKOCYTES 300.3576 (C) Nitrite Ur Ql Strip See Note (NEGATIVE) None Note: [id number] EResponsible Observer: NITRITE NITRITE 300.3652 (B) pH [...] are final unless otherwise noted. Urine culture [facility] Ordered by Cat Gutierrez RPA on 07/27/2020 Collected: 07/27/2020 Reported: 07/29/2020 07:36 Urine culture result 50,000 CFU/ML Lactobacilli no senst done None NOTES See Note None Note: @07/27/202136: Urine culture adde d. RFLXG = CULT.ADD. Reviewed by Cat Gutierrez RPA on 07/31; All test results are final unless otherwise noted. Reported Physicians [facility] Ordered by Cat Gutierrez RPA on 07/27/2020 Collected: 07/27/2020 Reported: 07/29/2020 07:37 Reported Physicians See Note None Note: Reported Physicians:Ordering: Carmina BustamanteisalAttending: Daquan GoodCopy To: Maya Barron Reviewed by aCt Gutierrez RPA on 07/31; All test results are final unless otherwise noted. ADD ON MICROSCOPIC [facility] Ordered by Cat Gutierrez RPA on 07/27/2020 Collected: 07/27/2020 Reported: 07/27/2020 21:36 ADD ON MICROSCOPIC See Note (0-5) None Note: NOTES OTHER/NOT INTERPRETED Bacteria UrnS Ql Micro SMALL AMOUNT Bacteria UrnS Ql Micro SMALL AMOUNT Bacteria UrnS Ql Micro L Bacteria UrnS Ql Micro Bacteria UrnS Ql Micro Bacteria UrnS Ql Micro Bacteria UrnS Ql Micro [id number] Bacteria UrnS Ql Micro Bacteria UrnS Ql Micro SMALL AMOUNT Cells UrnS Micro MODERATE Cells UrnS Micro MODERATE Cells UrnS Micro MODERATE Cells UrnS Micro L Cells UrnS Micro Cells UrnS Micro Cells UrnS Micro Cells UrnS Micro Cells UrnS Micro WBC # Ur Manual OCCASIONAL Reason for ordering culture: Abnormal findings UA@07/27/20 2118: UA W/ MICRO added. RFLXG = IC CIF.Method of Collection:: VoidedResponsible Observer: WBC WBC 300.5005 (A) Reviewed by aCt Gutierrez RPA on 07/28; All test results are final unless otherwise noted. Reported Physicians [facility] Ordered by Cat Gutierrez RPA on 07/27/2020 Collected: 07/27/2020 Reported: 07/27/2020 21:37 Reported Physicians See Note None Note: Reported Physicians:Ordering: Carmina BustamanteisalAttending: Daquan GoodCopyifan To: Maya Barron Reviewed by Cat Gutierrez RPA on 07/28; All test results are final unless otherwise noted. BHCG, QUANTITATIVE [facility] Ordered by Cat Gutierrez RPA on [...] are final unless otherwise noted. Reported Physicians [facility] Ordered by Cat Gutierrez [facility] on 07/27/2020 Collected: 07/27/2020 Reported: 07/27/2020 22:08 Reported Physicians See Note None Note: Reported Physicians:Ordering: Daquan BustamanteAttending: Ariella Good To: Maya Barron Reviewed by Cat Gutierrez [facility] on 07/28; All test results are final unless otherwise noted. 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 Reported Physicians [facility] Ordered by Cat Gutierrez RPA on 07/27/2020 Collected: 07/27/2020 Reported: 07/27/2020 20:11 Reported Physicians See Note None Note: Reported Physicians:Ordering: Daquan BustamanteAttending: Daquan GoodCopyifan To: Maya Barron Reviewed by Cat Gutierrez RPA on 07/28; All test results are final unless otherwise noted. Type and Screen [facility] Ordered by Cat Gutierrez RPA on [...] are final unless otherwise noted. Reported Physicians [facility] Ordered by Cat Gutierrez RPA on 07/27/2020 Collected: 07/27/2020 Reported: 07/27/2020 20:48 Reported Physicians See Note None Note: Reported Physicians:Ordering: Brad Bustamanteending: Ariella Good To: Maya Barron Reviewed by Cat Gutierrez RPA on 07/28; All test results are final unless otherwise noted. CMP [facility] Ordered by Cat Gutierrez [facility] on 07/27/2020 Collected: 07/27/2020 Reported: 07/27/2020 [...] are final unless otherwise noted. Reported Physicians [facility] Ordered by Cat Gutierrez RPA on 07/27/2020 Collected: 07/27/2020 Reported: 07/27/2020 20:37 Reported Physicians See Note None Note: Reported Physicians:Ordering: Daquan BustamanteAttending: Ariella Good To: Maya Barron Reviewed by Cat Gutierrez RPA on 07/28; All test results are final unless otherwise noted. BHCG, QUANTITATIVE [facility] Ordered by Maya Barron MD on 07/26/2020 Collected: 07/26/2020 Reported: 07/26/2020 16:48 [facility] 4155 MilliInternationalUnitsPerMilliLiter_[Arbitrary_Con (0-10) H (High) Note: [...] None Note: OTHER NAME IN SYSTEM IS ENERAJ Reviewed by Maya Barron MD on 07/27; All test results are final unless otherwise noted. Reported Physicians [facility] Ordered by Maya Barron MD on 07/26/2020 Collected: 07/26/2020 Reported: 07/26/2020 16:48 Reported Physicians See Note None Note: Reported Physicians:Ordering: Maya AlvarengaAttending: Maya Barron Reviewed by Maya Barron MD on 07/27; All test results are final unless otherwise noted. Extended hours FLU/COV2 NAAT [facility] Ordered by Bandar Cleveland PA-C on 07/25/2020 Collected: 07/25/2020 Reported: 07/25/2020 18:47 Extended hours FLU/COV2 NAAT See Note None Note: TNPNo Reportable ResultLTNPNo Repo rtable QkaxszN1NUY Reviewed by Bandar Cleveland PA-C on ; All test results are final unless otherwise noted. Reported Physicians [facility] Ordered by Bandar Cleveland PA-C on 07/25/2020 Collected: 07/25/2020 Reported: 07/25/2020 18:47 Reported Physicians See Note None Note: Reported Physicians:Ordering: Janice Wilsonending: Kami Cleveland To: Health, Public Reviewed by Bandar Cleveland PA-C on ; All test results are final unless otherwise noted. Sweta Raquel SARS/FLU [facility] Ordered by Bandar Cleveland PA-C on 07/25/2020 Collected: 07/25/2020 Reported: 07/25/2020 18:47 Sweta Raquel SARS/FLU See Note None Note: Sweta Raquel is a rapid, automated q ualitative anddifferentiation of Influenza type A,B and IZVO-MVV-1CDES-RT-PCR testNORMAL VALUE IS "NOT DETECTED".Limitations of the sweta raquel Influenza A/B & VQPV-WRF-9qgbqy method.Modifications to manufacturers recommendation and proceduresmay alter performance of the test.Negative results do not preclude Influenza A,B or SARS- BYH5ewlpfnrviu and should not be used as the [...] out diseases caused by other bacterialor viral pathogens.[id number] RNA Resp Ql ТАТЬЯНА+probeLNNOSNo O rganisms [id number] Organisms Detected Reviewed by Bandar Cleveland PA-C on 1; All test results are final unless otherwise noted. Reported Physicians [facility] Ordered by Bandar Cleveland PA-C on 07/25/2020 Collected: 07/25/2020 Reported: 07/25/2020 18:47 Reported Physicians See Note None Note: Reported Physicians:Ordering: Janice Wilsonending: Kami Cleveland To: Health, Public Reviewed by Bandar Cleveland PA-C on 1; All test results are final unless otherwise noted. 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 [facility] Lab Ordered by Maya Barron [...] are final unless otherwise noted. Reported Physicians [facility] Ordered by Maya Barron MD on 07/22/2020 Collected: 07/22/2020 Reported: 07/22/2020 02:00 Reported Physicians See Note None Note: Reported Physicians:Ordering: Hong LandaverdeAttending: Alon Douglas To: Maya Barron Reviewed by Maya Barron MD on 07/24; All test results are final unless otherwise noted. Extended hours FLU/COV2 NAAT [facility] Ordered by Maya Barron MD on 07/22/2020 Collected: 07/22/2020 Reported: 07/22/2020 01:29 Extended hours FLU/COV2 NAAT See Note None Note: TNPNo Reportable ResultLTNPNo Repo rtable AxuteqT5AKI Reviewed by Maya Barron MD on 07/24; All test results are final unless otherwise noted. Reported Physicians [facility] Ordered by Maya Barron MD on 07/22/2020 Collected: 07/22/2020 Reported: 07/22/2020 01:29 Reported Physicians See Note None Note: Reported Physicians:Ordering: Mill s, IsaacAttending: Nabil DouglasaacManny To: Maya Barron Reviewed by Maya Barron MD on 07/24; All test results are final unless otherwise noted. Sweta Raquel SARS/FLU [facility] Ordered by Maya Barron MD on 07/22/2020 Collected: 07/22/2020 Reported: 07/22/2020 01:29 Sweta Raquel SARS/FLU See Note None Note: Sweta Raquel is a rapid, automated q ualitative anddifferentiation of Influenza type A,B and UZNV-NWE-5ROIA-RT-PCR testNORMAL VALUE IS "NOT DETECTED".Limitations of the sweta raquel Influenza A/B & LOUJ-QZY-1ukufo method.Modifications to manufacturers recommendation and proceduresmay alter performance of the test.Negative results do not preclude Influenza A,B or SARS- XXO8fdfqywsieu and should not be used as the [...] out diseases caused by other bacterialor viral pathogens.99408-2QNIQ-IyQ-7 RNA Resp Ql ТАТЬЯНА+probeLNNOSNo O rganisms [id number] Organisms Detected Reviewed by Maya Barron MD on 07/24; All test results are final unless otherwise noted. Reported Physicians [facility] Ordered by Maya Barron MD on 07/22/2020 Collected: 07/22/2020 Reported: 07/22/2020 01:29 Reported Physicians See Note None Note: Reported Physicians:Ordering: Latrell boggs IsaacAttending: Alon Douglas To: Maya Barron Reviewed by Maya Barron MD on 07/24; All test results are final unless otherwise noted. UA W/ CULTURE IF ABNORMAL [facility] Ordered by Maya Barron MD on 07/22/2020 Collected: 07/22/2020 Reported: 07/22/2020 01:10 Urobilinogen Ur Ql See Note (0.2-1 EU/dl) None Note: 0.2 EU/dl0.2 EU/[id number] E U/dlResponsible Observer: UROBILINOGEN UROBILINOGEN 300.4500 (C) RBC # Ur Strip NEGATIVE (NEGATIVE) None Note: Responsible Observer: BLOOD BLOOD 300.4652 (C) Prot Ur Ql Strip See Note (NEGATIVE) None Note: [id number] EResponsible Observer: PROTEIN PROTEIN 300.3750 (C) Ketones Ur Ql Strip See Note (NEGATIVE) None Note: [id number] EResponsible Observer: KETONE KETONE 300.3900 (C) Bilirub Ur Ql Strip.auto See Note (NEGATIVE) None Note: [id number] EResponsible Observer: BILIRUBIN BILIRUBIN 300.4550 (C) Glucose Ur Strip.auto-mCnc NEGATIVE (NEGATIVE) None Note: Responsible Observer: GLUCOSE GLUC OSE 300.3850 (C) Appearance Ur See Note (CLEAR) None Note: CLEARCLEARLCLEARResponsible Observ er: APPEARANCE APPEARANCE 300.3400 (A) Color Ur See Note None Note: YELLOWYELLOWLYELLOWResponsible Obs erver: COLOR COLOR 300.3330 (A) Leukocyte esterase Ur Ql Strip See Note (NEGATIVE) None Note: [id number] EResponsible Observer: LEUKOCYTES LEUKOCYTES 300.3576 (C) Nitrite Ur Ql Strip See Note (NEGATIVE) None Note: [id number] EResponsible Observer: NITRITE NITRITE 300.3652 (B) pH Ur Strip 6.5 (5-8) None Note: Responsible Observer: PH PH 300.3 450 (C) Sp Gr Ur Refractometry 1.023 (1.005-1.030) None Note: Responsible Observer: SP GRAVITY U RINE SPECIFIC GRAVITY-MAN 300.3475 (C) URINE MICROSCOPIC? (CIF) NO None Note: Responsible Observer: UA URINE SHAWN ROSCOPIC PENDING 300.5155 (D) NOTES See Note None Note: Reason for ordering culture: Abnor mal findings UAMethod of Collection:: Voided Reviewed by Maya Barron MD on 07/24; All test results are final unless otherwise noted. Reported Physicians [facility] Ordered by Maya Barron MD on 07/22/2020 Collected: 07/22/2020 Reported: 07/22/2020 01:11 Reported Physicians See Note None Note: Reported Physicians:Ordering: Hong LandaverdeAttending: Alon Douglas To: Maya Barron Reviewed by Maya Barron MD on 07/24; All test results are final unless otherwise noted. Urine culture [facility] Ordered by Maya Barron MD on 07/19/2020 Collected: 07/19/2020 Reported: 07/21/2020 07:48 Bacteria Ur Cult See Note None Note: NGNo growth.L1NG Reviewed by Maya Barron MD on 07/21; All test results are final unless otherwise noted. Reported Physicians [facility] Ordered by Maya Barron MD on 07/19/2020 Collected: 07/19/2020 Reported: 07/21/2020 07:49 Reported Physicians See Note None Note: Reported Physicians:Ordering: Maya AlvarengaAttending: Maya Barron Reviewed by Maya Barron MD on 07/21; All test results are final unless otherwise noted. BHCG, QUANTITATIVE [facility] Ordered by Maya Barron MD on [...] are final unless otherwise noted. Reported Physicians [facility] Ordered by Maya Barron MD on 07/17/2020 Collected: 07/17/2020 Reported: 07/17/2020 12:40 Reported Physicians See Note None Note: Reported Physicians:Ordering: Maya AlvarengaAttending: Maya Barron Reviewed by Maya Barron MD on 07/17; All test results are final unless otherwise noted. CUEVAS COVID-19 SCHOOL [facility] Ordered by Maya Barron MD on [...] molecular test, if the virus mutates in [place], Covid-19 may not be detected or may bedetected less predictably.ID NOW COVID-19 is intended for testing a swab directlywithout elution in viral transport media as dilution willresult in decreased detection of low positive samples thatare near the limit of detection of the test.SWAB SAMPLES ELUTED IN VTM ARE NOT APPROPRIATE FOR USE INTHIS TEST.NOSNo Organisms [id number] Organisms Detected Reviewed by Maya Barron MD on 05/31; All test results are final unless otherwise noted. Reported Physicians [facility] Ordered by Maya Barron MD on 05/31/2020 Collected: 05/31/2020 Reported: 05/31/2020 07:08 Reported Physicians See Note None Note: Reported Physicians:Ordering: Johnny HernándezAttending: Suzanne Cazares To: Maya Barron Reviewed by Maya Barron MD on 05/31; All test results are final unless otherwise noted. BHCG, QUANTITATIVE [facility] Ordered by Maya Barron MD on 05/26/2020 Collected: 05/26/2020 Reported: 05/26/2020 14:49 [facility] [address] MilliInternationalUnitsPerMilliLiter_[Arbitrary_Con (0-10) H (High) Note: @Instrument will [...] are final unless otherwise noted. Reported Physicians [facility] Ordered by Maya Barron MD on 05/26/2020 Collected: 05/26/2020 Reported: 05/26/2020 14:50 Reported Physicians See Note None Note: Reported Physicians:Ordering: Maya AlvarengaAttending: Maya Barron Reviewed by Maya Barron MD on 05/26; All test results are final unless otherwise noted. URINALYSIS [facility] Ordered by Maya Barron MD on 05/23/2020 Collected: 05/23/2020 Reported: 05/23/2020 17:19 Urobilinogen Ur Ql See Note (0.2-1 EU/dl) None Note: 0.2 EU/dl0.2 EU/[id number] E U/dlResponsible Observer: UROBILINOGEN UROBILINOGEN 300.4500 (C) RBC # Ur Strip NEGATIVE (NEGATIVE) None Note: Responsible Observer: BLOOD BLOOD 300.4650 (C) Prot Ur Ql Strip See Note (NEGATIVE) None Note: [id number] EResponsible Observer: PROTEIN PROTEIN 300.3750 (C) Ketones Ur Ql Strip See Note (NEGATIVE) None Note: [id number] EResponsible Observer: KETONE KETONE 300.3900 (C) Bilirub Ur Ql Strip.auto See Note (NEGATIVE) None Note: [id number] EResponsible Observer: BILIRUBIN BILIRUBIN 300.4550 (C) Glucose Ur Strip.auto-mCnc NEGATIVE (NEGATIVE) None Note: Responsible Observer: GLUCOSE GLUC OSE 300.3850 (C) Appearance Ur See Note (CLEAR) None Note: CLEARCLEARLCLEARResponsible Observ er: APPEARANCE APPEARANCE 300.3400 (A) Color Ur See Note None Note: YELLOWYELLOWLYELLOWResponsible Obs erver: COLOR COLOR 300.3300 (A) Leukocyte esterase Ur Ql Strip See Note (NEGATIVE) None Note: [id number] EResponsible Observer: LEUKOCYTES LEUKOCYTES 300.3575 (C) Nitrite Ur Ql Strip See Note (NEGATIVE) None Note: [id number] EResponsible Observer: NITRITE NITRITE 300.3650 (B) pH [...] are final unless otherwise noted. Urine culture [facility] Ordered by Maya Barron MD on 05/23/2020 Collected: 05/23/2020 Reported: 05/24/2020 09:24 Bacteria Ur Cult See Note None Note: NGNo growth.L1NG Reviewed by Maya Barron MD on 05/29; All test results are final unless otherwise noted. MEDMATCH [facility] Ordered by Maya Barron MD on 05/23/2020 Collected: 05/23/2020 Reported: 05/26/2020 17:09 MEDMATCH 1.000 (> or = 1.003) None Note: Responsible Observer: MEDMATCH vocaltap MATCH 910.57621 ([facility]) Reviewed by Maya Barron MD on 05/29; All test results are final unless otherwise noted. Reported Physicians [facility] Ordered by Maya Barron MD on 05/23/2020 Collected: 05/23/2020 Reported: 05/26/2020 17:09 Reported Physicians See Note None Note: Reported Physicians:Ordering: Maya AlvarengaAttending: Maya Barron Reviewed by Maya Barron MD on 05/29; All test results are final unless otherwise noted. Varicella-Zoster IgG Antibody [facility] Ordered by Maya Barron MD on [...] Antibody Immunity Screen, ACIF.THIS TEST WAS PERFORMED AT:[facility] [address]QMHGDR DC GEOVANNY,MDResponsible Observer: VARICELLA IGG Varicella-Zoster IgG Antibody [id number] 272.2653 ([facility]) NOTES See Note None Note: Patient Street Address: [facility] [address]Patient City: [place]: [place]: [address] Reviewed by Maya Barron MD on 05/26; All test results are final unless otherwise noted. Reported Physicians [facility] Ordered by Maya Barron MD on 05/23/2020 Collected: 05/23/2020 Reported: 05/25/2020 17:11 Reported Physicians See Note None Note: Reported Physicians:Ordering: Maya AlvarengaAttending: Maya Barron Reviewed by Maya Barron MD on 05/26; All test results are final unless otherwise noted. 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 TSH [facility] Ordered by Maya Barron MD on 05/23/2020 Collected: 05/23/2020 Reported: 05/23/2020 18:38 TSH SerPl DL<=0.005 mIU/L-aCnc 1.87 MicroInternationalUnitsPerMilliLiter_[Arbitrary_Con (0.35-5. 50) N (Normal) Note: Responsible Observer: TSH TSH 600 .7055 (D) Reviewed by Maya Barron MD on 05/29; All test results are final unless otherwise noted. Lead (Venous) Wh.Bld [facility] Ordered by Maya Barron MD on 05/23/2020 Collected: 05/23/2020 Reported: 05/25/2020 17:11 Lead Bld-sCnc <1 (<5) None Note: See Note 1Note 1This test was [employer] and its analytical performancecharacteristics have been determined by [employer]. It has not been cleared or approved by theA. This assay has been validated pursuant to the CLIAregulations and is used for clinical purposes.THIS TEST WAS PERFORMED AT:[facility] [address]GYVDJWCLAUDY ONEILLesponsible Observer: Lead, WB Lead, Whole Blood [id number] 911.4646 ([facility]) NOTES See Note None Note: Patient Street Address: [facility]Patient City: [place]: [place]: [address] Reviewed by Maya Barron MD on 05/29; All test results are final unless otherwise noted. ncPN REF [facility] Ordered by Maya Barron MD on 05/23/2020 Collected: 05/23/2020 Reported: 05/27/2020 20:54 T pallidum Ab Ser Ql Aggl See Note (Nonreactive) None Note: [id number] onreactiveResponsible Observer: TP-PA Treponema pallidum Ab (TP-PA) [id number] 908.0286 ([facility]) HIV1 RNA SerPl Ql ТАТЬЯНА+probe See Note None Note: TNPNo Reportable ResultLTNPNo Repo rtable ResultLLEP.LIVENTNPResponsible Observer: HIV 1 RNA, QL T HIV 1 RNA, QL TMA [id number] 908.0254 ([facility]) HBV surface Ag SerPl Ql IA See Note (NON-REACTIVE) None Note: [id number]-MDXYYLTWAFE-[id number] 0NON-REACTIVEResponsible Observer: HBSAG Hepatitis B Surface Antigen [id number] 910.2004 ([facility]) RUBV IgG SerPl IA-aCnc 1.80 None Note: Index Interpretatio n ----- <0.90 Not consistent with Immunity 0.90-0.99 Equivocal > or = 1.00 Consistent with ImmunityThe presence of rubella IgG antibody suggestsimmunization or past or current infection withrubella virus.THIS TEST WAS PERFORMED AT:[facility] [address]BCSPGW MERATI,MDResponsible Observer: Rubella IgG Ab Rubella IgG Ab [id number] 911.2840 ([facility]) HIV1 Ab SerPlBld Ql IA.rapid See Note None Note: TNPNo Reportable ResultLTNPNo Repo rtable ResultLLEP.LIVENTNPResponsible Observer: HIV 1 AB HIV 1 AB [id number] 908.0250 ([facility]) HBsAg Confirmation See Note None Note: TNPNo Reportable ResultLTNPNo Repo rtable ResultLLEP.LIVENTNPResponsible Observer: HBsAg Confirm HBsAg Confirmation [id number] 910.2006 ([facility]) HIV (1&2) Screen, 4th Gen [...] for this purpose.For additional information please refer tohttp://[employer]/faq/YKB815(This link is being provided for informational/educational purposes only.)The performance of this assay has not been clinicallyvalidated in patients less than 2 years old.Responsible Observer: HIV ABS HIV (1&2) Screen, 4th Gen [id number] 908.8082 ([facility]) Reviewed by Maya Barron MD on 05/29; All test results are final unless otherwise noted. Reported Physicians [facility] Ordered by Maya Barron MD on 05/23/2020 Collected: 05/23/2020 Reported: 05/27/2020 20:54 Reported Physicians See Note None Note: Reported Physicians:Ordering: Maya AlvarengaAttending: Maya Barron Reviewed by Maya Barron MD on 05/29; All test results are final unless otherwise noted. HCV RFX ТАТЬЯНА [facility] Ordered by Maya Barron MD on 05/23/2020 Collected: 05/23/2020 Reported: 05/25/2020 17:11 HCV Ab Ser Ql See Note (NON-REACTIVE) None Note: [id number]-[id number] 7NON-REACTIVEResponsible Observer: HEP C ANTIBODY Hepatitis C Antibody [id number] 914.8305 ([facility]) HCV RNA Qualitative (ТАТЬЯНА) 0.59 (<1.00) None Note: HCV antibody was non-reactive. The re is no laboratoryevidence of HCV infection.In most cases, no further action is required. However,if recent HCV exposure is suspected, a test for HCV RNA(test code 45221) is suggested.For additional information please refer tohttp://[employer]/faq/JAW20b4(This link is being provided for informational/educational purposes only.)THIS TEST WAS PERFORMED AT:[facility] [place] [address]OSEAS MEANSMDResponsible Observer: SIG TO C/O SIGNAL TO CUTOFF [id number] 856.3430 ([facility]) NOTES See Note None Note: Patient Street Address: [address] [place]: [facility] State[facility] Zip Code: [address] Reviewed by Maya Barron MD on 05/26; All test results are final unless otherwise noted. Reported Physicians [facility] Ordered by Maya Barron MD on 05/23/2020 Collected: 05/23/2020 Reported: 05/25/2020 17:11 Reported Physicians See Note None Note: Reported Physicians:Ordering: Maya AlvarengaAttending: Maya Barron Reviewed by Maya Barron MD on 05/26; All test results are final unless otherwise noted. Type and Screen [facility] Ordered by Maya Barron MD on [...] are final unless otherwise noted. Reported Physicians [facility] Ordered by Maya Barron MD on 05/23/2020 Collected: 05/23/2020 Reported: 05/23/2020 19:32 Reported Physicians See Note None Note: Reported Physicians:Ordering: Maya AlvarengaAttending: Maya Barron Reviewed by Maya Barron MD on 05/24; All test results are final unless otherwise noted. PROGESTERONE [facility] Ordered by Maya Barron MD on [...] are final unless otherwise noted. Reported Physicians [facility] Ordered by Maya Barron MD on 04/27/2020 Collected: 04/27/2020 Reported: 04/27/2020 15:58 Reported Physicians See Note None Note: Reported Physicians:Ordering: Johnny HernándezAttending: Jos Castellanos To: Rubén Barron To: Cristino Castellanos Reviewed by Maya Barron MD on 04/30; All test results are final unless otherwise noted. BHCG, QUANTITATIVE [facility] Ordered by Maya Barron MD on 04/27/2020 Collected: 04/27/2020 Reported: 04/27/2020 14:40 [facility] 2353 MilliInternationalUnitsPerMilliLiter_[Arbitrary_Con (0-10) H (High) Note: [...] are final unless otherwise noted. Reported Physicians [facility] Ordered by Maya Barron MD on 04/27/2020 Collected: 04/27/2020 Reported: 04/27/2020 14:40 Reported Physicians See Note None Note: Reported Physicians:Ordering: Aj Snowending: Cristino CastellanosCopyifan To: Johnny CazaresCopyifan To: Maya Barron Reviewed by Maya Barron MD on 04/30; All test results are final unless otherwise noted. 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 [facility] Ordered by Maya Barron MD on [...] are final unless otherwise noted. Reported Physicians [facility] Ordered by Maya Barron MD on 04/25/2020 Collected: 04/25/2020 Reported: 04/25/2020 22:11 Reported Physicians See Note None Note: Reported Physicians:Ordering: Cristino FerreiraAttending: Jos Rivas To: Maya Barron Reviewed by Maya Barron MD on 04/26; All test results are final unless otherwise noted. BHCG, QUANTITATIVE [facility] Ordered by Maya Barron MD on 04/25/2020 Collected: 04/25/2020 Reported: 04/25/2020 22:11 [facility] 1758 MilliInternationalUnitsPerMilliLiter_[Arbitrary_Con (0-10) H (High) Note: @Instrument [...] are final unless otherwise noted. Reported Physicians [facility] Ordered by Maya Barron MD on 04/25/2020 Collected: 04/25/2020 Reported: 04/25/2020 22:11 Reported Physicians See Note None Note: Reported Physicians:Ordering: Aj Ferreiraending: Jos Rivas To: Maya Barron Reviewed by Maya Barron MD on 04/26; All test results are final unless otherwise noted. Urine culture [facility] Ordered by Maya Barron MD on 04/25/2020 Collected: 04/25/2020 Reported: 04/27/2020 04:50 Bacteria Ur Cult See Note None Note: NGNo growth.L1NG NOTES See Note None Note: @ NICOLE DATE was changed from 04/26 to 04/25/20@ by LEONARDO. Reviewed by Maya Barron MD on 04/30; All test results are final unless otherwise noted. Reported Physicians [facility] Ordered by Maya Barron MD on 04/25/2020 Collected: 04/25/2020 Reported: 04/27/2020 04:51 Reported Physicians See Note None Note: Reported Physicians:Ordering: Aj Ferreiraending: Jos Rivas To: Maya Barron Reviewed by Maya Barron MD on 04/30; All test results are final unless otherwise noted. ADD ON MICROSCOPIC [facility] Ordered by Maya Barron MD on 04/25/2020 Collected: 04/25/2020 Reported: 04/25/2020 21:54 ADD ON MICROSCOPIC See Note (0-5) None Note: NOTES OTHER/NOT INTERPRETED Bacteria UrnS Ql Micro SMALL AMOUNT Bacteria UrnS Ql Micro SMALL AMOUNT Bacteria UrnS Ql Micro L Bacteria UrnS Ql Micro Bacteria UrnS Ql Micro Bacteria UrnS Ql Micro Bacteria UrnS Ql Micro [id number] Bacteria UrnS Ql Micro Bacteria UrnS Ql [...] are final unless otherwise noted. Reported Physicians [facility] Ordered by Maya Barron MD on 04/25/2020 Collected: 04/25/2020 Reported: 04/25/2020 21:54 Reported Physicians See Note None Note: Reported Physicians:Ordering: Cristino FerreiraAttending: Jos Rivas To: Maya Barron Reviewed by Maya Barron MD on 04/26; All test results are final unless otherwise noted. URINALYSIS [facility] Ordered by Maya Barron MD on 04/25/2020 Collected: 04/25/2020 Reported: 04/25/2020 21:54 Urobilinogen Ur Ql See Note (0.2-1 EU/dl) None Note: 0.2 EU/dl0.2 EU/[id number] E U/dlResponsible Observer: UROBILINOGEN UROBILINOGEN 300.4500 (C) RBC # Ur Strip NEGATIVE (NEGATIVE) None Note: Responsible Observer: BLOOD BLOOD 300.4650 (C) Prot Ur Ql Strip See Note (NEGATIVE) None Note: [id number] EResponsible Observer: PROTEIN PROTEIN 300.3750 (C) Ketones Ur Ql Strip See Note (NEGATIVE) None Note: [id number] EResponsible Observer: KETONE KETONE 300.3900 (C) Bilirub Ur Ql Strip.auto See Note (NEGATIVE) None Note: [id number] EResponsible Observer: BILIRUBIN BILIRUBIN 300.4550 (C) Glucose Ur Strip.auto-mCnc NEGATIVE (NEGATIVE) None Note: Responsible Observer: GLUCOSE GLUC OSE 300.3850 (C) Appearance Ur See Note (CLEAR) None Note: CLEARCLEARLCLEARResponsible Observ er: APPEARANCE APPEARANCE 300.3400 (A) Color Ur See Note None Note: YELLOWYELLOWLYELLOWResponsible Obs erver: COLOR COLOR 300.3300 (A) Leukocyte esterase Ur Ql Strip See Note (NEGATIVE) None Note: [id number]@DO MICR O!!!!Responsible Observer: LEUKOCYTES LEUKOCYTES 300.3575 (C) Nitrite Ur Ql Strip See Note (NEGATIVE) None Note: [id number] EResponsible Observer: NITRITE NITRITE 300.3650 (B) pH [...] are final unless otherwise noted. Reported Physicians [facility] Ordered by Maya Barron MD on 04/25/2020 Collected: 04/25/2020 Reported: 04/25/2020 21:54 Reported Physicians See Note None Note: Reported Physicians:Ordering: Aj Ferreiraending: Jos Rivas To: Maya Barron Reviewed by Maya Barron MD on 04/26; All test results are final unless otherwise noted. BHCG, QUANTITATIVE [facility] Ordered by Maya Barron MD on [...] are final unless otherwise noted. Reported Physicians [facility] Ordered by Maya Barron MD on 04/18/2020 Collected: 04/18/2020 Reported: 04/18/2020 15:11 Reported Physicians See Note None Note: Reported Physicians:Ordering: Maya AlvarengaAttending: Maya Barron Reviewed by Maya Barron MD on 04/19; All test results are final unless otherwise noted. ADD ON MICROSCOPIC [facility] Ordered by Maya Barron MD on 04/16/2020 Collected: 04/16/2020 Reported: 04/16/2020 23:51 ADD ON MICROSCOPIC See Note (0-5) None Note: NOTES OTHER/NOT INTERPRETED Bacteria UrnS Ql Micro SMALL AMOUNT Bacteria UrnS Ql Micro SMALL AMOUNT Bacteria UrnS Ql Micro L Bacteria UrnS Ql Micro Bacteria UrnS Ql Micro Bacteria UrnS Ql Micro Bacteria UrnS Ql Micro [id number] Bacteria UrnS Ql Micro Bacteria UrnS Ql [...] are final unless otherwise noted. Reported Physicians [facility] Ordered by Maya Barron MD on 04/16/2020 Collected: 04/16/2020 Reported: 04/16/2020 23:52 Reported Physicians See Note None Note: Reported Physicians:Ordering: Damon , VinodAttending: Damon, VinodCopy To: Maya Barron Reviewed by Maya Barron MD on 04/17; All test results are final unless otherwise noted. UA W/ CULTURE IF ABNORMAL [facility] Ordered by Maya Barron MD on 04/16/2020 Collected: 04/16/2020 Reported: 04/16/2020 23:51 Urobilinogen Ur Ql See Note (0.2-1 EU/dl) None Note: 0.2 EU/dl0.2 EU/[id number] E U/dlResponsible Observer: UROBILINOGEN UROBILINOGEN 300.4500 (C) RBC # Ur Strip NEGATIVE (NEGATIVE) None Note: Responsible Observer: BLOOD BLOOD 300.4652 (C) Prot Ur Ql Strip See Note (NEGATIVE) None Note: [id number] EResponsible Observer: PROTEIN PROTEIN 300.3750 (C) Ketones Ur Ql Strip See Note (NEGATIVE) None Note: [id number] ble Observer: KETONE KETONE 300.3900 (C) Bilirub Ur Ql Strip.auto See Note (NEGATIVE) None Note: [id number] EResponsible Observer: BILIRUBIN BILIRUBIN 300.4550 (C) Glucose Ur Strip.auto-mCnc NEGATIVE (NEGATIVE) None Note: Responsible Observer: GLUCOSE GLUC OSE 300.3850 (C) Appearance Ur See Note (CLEAR) None Note: CLEARCLEARLCLEARResponsible Observ er: APPEARANCE APPEARANCE 300.3400 (A) Color Ur See Note None Note: YELLOWYELLOWLYELLOWResponsible Obs erver: COLOR COLOR 300.3330 (A) Leukocyte esterase Ur Ql Strip See Note (NEGATIVE) None Note: [id number] E@DO MICRO!!!!A Culture has been added to this specimen per established criteriaResponsible Observer: LEUKOCYTES LEUKOCYTES 300.3576 (C) Nitrite Ur Ql Strip See Note (NEGATIVE) None Note: [id number] EResponsible Observer: NITRITE NITRITE 300.3652 (B) pH [...] are final unless otherwise noted. Urine culture [facility] Ordered by Maya Barron MD on 04/16/2020 Collected: 04/16/2020 Reported: 04/18/2020 06:47 Urine culture result See Note None Note: Less than 10,000 CFU/MLNormal Comm ensal FloraProbable contaminants no senst done NOTES See Note None Note: @04/16/20 2351: Urine culture adde d. RFLXG = CULT.ADD. Reviewed by Maya Barron MD on 04/18; All test results are final unless otherwise noted. Reported Physicians [facility] Ordered by Maya Barron MD on 04/16/2020 Collected: 04/16/2020 Reported: 04/18/2020 06:47 Reported Physicians See Note None Note: Reported Physicians:Ordering: Jose E JoseodAttending: Jose E JoseodCopy To: Maya Barron Reviewed by Maya Barron MD on 04/18; All test results are final unless otherwise noted. 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 BHCG, QUANTITATIVE [facility] Ordered by Maya Barron MD on [...] are final unless otherwise noted. Reported Physicians [facility] Ordered by Maya Barron MD on 04/16/2020 Collected: 04/16/2020 Reported: 04/16/2020 22:47 Reported Physicians See Note None Note: Reported Physicians:Ordering: Damon VinodAttending: Jose E JoseodCopy To: Maya Barron Reviewed by Maya Barron MD on 04/17; All test results are final unless otherwise noted. CMP [facility] Ordered by Maya Barron MD on [...] are final unless otherwise noted. Reported Physicians [facility] Ordered by Maya Barron MD on 04/16/2020 Collected: 04/16/2020 Reported: 04/16/2020 22:44 Reported Physicians See Note None Note: Reported Physicians:Ordering: Romel Josettending: Damon VinodCopy To: Maya Barron Reviewed by Maya Barron MD on 04/17; All test results are final unless otherwise noted. LIPASE [facility] Ordered by Maya Barron MD on 04/16/2020 Collected: 04/16/2020 Reported: 04/16/2020 22:44 Lipase SerPl-cCnc 107 enzyme_unit_per_liter (73-393) N (Normal) Note: Responsible Observer: Lipase Lipas e 400.2310 (G) Reviewed by Maya Barron MD on 04/17; All test results are final unless otherwise noted. Reported Physicians [facility] Ordered by Maya Barron MD on 04/16/2020 Collected: 04/16/2020 Reported: 04/16/2020 22:44 Reported Physicians See Note None Note: Reported Physicians:Ordering: Damon VinodAttending: Damon, VinodCopy To: Maya Barron Reviewed by Maya Barron MD on 04/17; All test results are final unless otherwise noted. Type and Screen [facility] Ordered by Maya Barron MD on [...] are final unless otherwise noted. Reported Physicians [facility] Ordered by Maya Barron MD on 04/16/2020 Collected: 04/16/2020 Reported: 04/16/2020 23:09 Reported Physicians See Note None Note: Reported Physicians:Ordering: Jose E JoseodAttending: Jose E JoseodManny To: Maya Barron Reviewed by Maya Barron MD on 04/17; All test results are final unless otherwise noted. [facility] Ordered by Maya Barron MD on 04/10/2020 [address] [place], [address] Collected: 04/10/2020 Reported: 04/11/2020 11:35 tel : [...] Ordered by Maya Barron MD on 04/10/[address] [place] [address], [facility] Collected: 04/10/2020 Reported: 04/11/2020 11:35 tel [...] Ordered by Maya Barron MD on 04/10/[address] [place] [address], [facility] Collected: 04/10/2020 Reported: 04/11/2020 11:35 tel :[phone] ext. 1500 TSH 1.336 uIu/mL (0.5-5.8) None Note: Responsible Observer: AW Reviewed by Maya Barron MD on 04/12; All test results are final unless otherwise noted. -[facility] Ordered by Maay Barron MD on 02/25/2020 Collected: 02/25/2020 Reported: 02/28/2020 15:53 C trach rRNA XXX Ql ТАТЬЯНА+probe See Note (NOT DETECTED) None Note: NOT DETECTEDNOT DETECTEDLNOT DETEC TEDNOT [id number] DETECTEDResponsible Observer: C.Trach RNA Chlamydia trachomatis DNA-ТАТЬЯНА 07855258 913.9900 ([facility]) N gonorrhoea rRNA XXX Ql ТАТЬЯНА+probe See Note (NOT DETECTED) None Note: NOT DETECTEDNOT DETECTEDLNOT DETEC TEDNOT [id number] DETECTEDResponsible Observer: GC RNA Neisseria gonorrhoeae DNA -ТАТЬЯНА 25224485 913.9905 ([facility]) Chlamydia/GC DNA Note SEE NOTE None Note: The analytical performance charact eristics of thisassay, when used to test SurePath(TM) specimens have beendetermined by [employer]. The modifications havenot been cleared or approved by the FDA. This assay hasbeen validated pursuant to the CLIA regulations and isused for clinical purposes.For additional information, please refer tohttps://education.[employer]/faq/KEE114(This link is being provided for information/educational purposes only.)THIS TEST WAS PERFORMED AT:[employer] [address] 639CLAUDY ONEILLesponsible Observer: GC/Chlam Note Chlamydia/GC DNA Note 87497303 913.9907 (A) NOTES See Note None Note: Source Of Specimen: URINE Reviewed by Maya Barron MD on 02/28; All test results are final unless otherwise noted. Reported Physicians [facility] Ordered by Maya Barron MD on 02/25/2020 Collected: 02/25/2020 Reported: 02/28/2020 15:54 Reported Physicians See Note None Note: Reported Physicians:Ordering: Cara Alvarengaending: Maya Barron Reviewed by Maya Barron MD on 02/28; All test results are final unless otherwise noted. Urine culture-[facility] Ordered by Maya Barron MD on 02/25/2020 Collected: 02/25/2020 Reported: 02/26/2020 13:38 Urine culture result No growth None Reviewed by Maya Barron MD on 02/27; All test results are final unless otherwise noted. Reported Physicians [facility] Ordered by Maya Barron MD on 02/25/2020 Collected: 02/25/2020 Reported: 02/26/2020 13:39 Reported Physicians See Note None Note: Reported Physicians:Ordering: Cara Alvarengaending: Maya Barron Reviewed by Maya Barron MD on 02/27; All test results are final unless otherwise noted. Test Office Lab Ordered by Maya Barron MD on 02/25/2020 [address] [place], [address] Specimen Source: Urine Collected: 02/25/2020 Reporte d: 02/25/2020 11:15 tel: Urine HCG neg (negative) N (Normal) Reviewed by Maya Barron MD on 02/24; All test results are final unless otherwise noted. Urinalysis w/out microscopy Office Lab Ordered by Maya Barron MD on 02/25/2020 [address] [place], [address] Specimen Source: Urine Collected: 02/25/2020 Reporte d: 02/25/2020 11:02 tel: bilirubin neg (neg) N (Normal) blood [...] otherwise noted. UA W/ CULTURE IF ABNORMAL [facility] Ordered by Maya aBrron MD on 01/29/2020 Collected: 01/29/2020 Reported: 01/29/2020 00:22 Urobilinogen Ur Ql See Note (0.2-1 EU/dl) None Note: 1 EU/dl1 EU/dlL1 EU/dl1 EU/kjR0208 [id number] EU/dlResponsible Observer: UROBILINOGEN UROBILINOGEN 300.4500 (C) RBC # Ur Strip NEGATIVE (NEGATIVE) None Note: Responsible Observer: BLOOD BLOOD 300.4652 (C) Prot Ur Ql Strip See Note (NEGATIVE) None Note: NEGATIVENEGATIVELNEGATIVENEGATIVEL [id number] Observer: PROTEIN PROTEIN 300.3750 (C) Ketones Ur Ql Strip See Note (NEGATIVE) None Note: 15 mg/dL15 mg/dLL15 mg/dL15 mg/dLL 571719211560 mg/dLResponsible Observer: KETONE KETONE 300.3900 (C) Bilirub Ur Ql Strip.auto See Note (NEGATIVE) None Note: NEGATIVENEGATIVELNEGATIVENEGATIVEL [id number] Observer: BILIRUBIN BILIRUBIN 300.4550 (C) Glucose Ur Strip.auto-mCnc NEGATIVE (NEGATIVE) None Note: Responsible Observer: GLUCOSE GLUC OSE 300.3850 (C) Appearance Ur See Note (CLEAR) None Note: CLEARCLEARLCLEARCLEARLCLEARRespons ible Observer: APPEARANCE APPEARANCE 300.3400 (A) Color Ur See Note None Note: YELLOWYELLOWLYELLOWYELLOWLYELLOWRe sponsible Observer: COLOR COLOR 300.3330 (A) Leukocyte esterase Ur Ql Strip See Note (NEGATIVE) None Note: NEGATIVENEGATIVELNEGATIVENEGATIVEL [id number] Observer: LEUKOCYTES LEUKOCYTES 300.3576 (C) Nitrite Ur Ql Strip See Note (NEGATIVE) None Note: NEGATIVENEGATIVELNEGATIVENEGATIVEL [id number] Observer: NITRITE NITRITE 300.3652 (B) pH Ur [...] are final unless otherwise noted. Reported Physicians [facility] Ordered by Maya Barron MD on 01/29/2020 Collected: 01/29/2020 Reported: 01/29/2020 00:22 Reported Physicians See Note None Note: Reported Physicians:Ordering: Yoli NapolesAttending: Charles Silva To: Maya Barron Reviewed by Maya Barron MD on 01/30; All test results are final unless otherwise noted. BHCG,SERUM QUALITATIVE [facility] Ordered by Maya Barron MD on 01/28/2020 Collected: 01/28/2020 Reported: 01/28/2020 22:58 HCG SerPl-sCnc NEGATIVE (NEGATIVE) None Note: @Reenter manual test result: NEGAT LAYA@by Sybil Whatley at 01/28/20 8604.Responsible Observer: BHCG SERUM BHCG SERUM 800.0900 (A) NOTES See Note None Note: @ DID THE CONTROL BAND APPEAR? YES @ DID THE BACKGROUND CLEAR? YES Reviewed by Maya Barron MD on 01/30; All test results are final unless otherwise noted. Reported Physicians [facility] Ordered by Maya Barron MD on 01/28/2020 Collected: 01/28/2020 Reported: 01/28/2020 22:58 Reported Physicians See Note None Note: Reported Physicians:Ordering: Cliff Napolesending: Charles Silva To: Maya Barron Reviewed by Maya Barron MD on 01/30; All test results are final unless otherwise noted. CBC W AUTO DIFF [facility] Ordered by Maya Barron MD on [...] Auto See Note (0-2) N (Normal) Note: 0.30.3L0.30.4C05443480694.3Respons ible Observer: IG% IG% 100.1375 (B) Hct [...] test results are final unless otherwise noted. [facility] Ordered by Maya Barron MD on [...] are final unless otherwise noted. Reported Physicians [facility] Ordered by Maya Barron MD on 01/28/2020 Collected: 01/28/2020 Reported: 01/28/2020 23:00 Reported Physicians See Note None Note: Reported Physicians:Ordering: Yoli NapolesAttending: Charles Silva To: Maya Barron Reviewed by Maya Barron MD on 01/30; All test results are final unless otherwise noted. UA W/ CULTURE IF ABNORMAL [facility] Ordered by Maya Barron MD on 12/12/2019 Collected: 12/12/2019 Reported: 12/12/2019 11:22 Urobilinogen Ur Ql See Note (0.2-1 EU/dl) None Note: 1 EU/dl1 EU/dlL1 EU/dl1 EU/rsK5631 2671418 EU/dlResponsible Observer: UROBILINOGEN UROBILINOGEN 300.4500 (C) RBC # Ur Strip NEGATIVE (NEGATIVE) None Note: Responsible Observer: BLOOD BLOOD 300.4652 (C) Prot Ur Ql Strip See Note (NEGATIVE) None Note: NEGATIVENEGATIVELNEGATIVENEGATIVEL [id number] Observer: PROTEIN PROTEIN 300.3750 (C) Ketones Ur Ql Strip See Note (NEGATIVE) None Note: 15 mg/dL15 mg/dLL15 mg/dL15 mg/dLL 979968365855 mg/dLResponsible Observer: KETONE KETONE 300.3900 (C) Bilirub Ur Ql Strip.auto See Note (NEGATIVE) None Note: NEGATIVENEGATIVELNEGATIVENEGATIVEL 6203660997OFBHFWAVZvbojntywdj Observer: BILIRUBIN BILIRUBIN 300.4550 (C) Glucose Ur Strip.auto-mCnc NEGATIVE (NEGATIVE) None Note: Responsible Observer: GLUCOSE GLUC OSE 300.3850 (C) Appearance Ur See Note (CLEAR) A (Abnormal) Note: CLOUDYCLOUDYLCLOUDYCLOUDYLCLOUDYRe sponsible Observer: APPEARANCE APPEARANCE 300.3400 (A) Color Ur See Note None Note: YELLOWYELLOWLYELLOWYELLOWLYELLOWRe sponsible Observer: COLOR COLOR 300.3330 (A) Leukocyte esterase Ur Ql Strip See Note (NEGATIVE) None Note: NEGATIVENEGATIVELNEGATIVENEGATIVEL [id number] Observer: LEUKOCYTES LEUKOCYTES 300.3576 (C) Nitrite Ur Ql Strip See Note (NEGATIVE) None Note: NEGATIVENEGATIVELNEGATIVENEGATIVEL 0317756944NYNOKBGQDtmfjgtyurz Observer: NITRITE NITRITE 300.3652 (B) pH Ur [...] are final unless otherwise noted. Reported Physicians [facility] Ordered by Maya Barron MD on 12/12/2019 Collected: 12/12/2019 Reported: 12/12/2019 11:23 Reported Physicians See Note None Note: Reported Physicians:Ordering: Maya AlvarengaAttending: Maya Barron Reviewed by Maya Barron MD on 12/12; All test results are final unless otherwise noted. CBC W AUTO DIFF [facility] Ordered by Maya Barron MD on [...] Auto See Note (0-2) N (Normal) Note: [id number] ible Observer: IG% IG% 100.1375 (B) Hct [...] test results are final unless otherwise noted. [facility] Ordered by Maya Barron MD on [...] are final unless otherwise noted. Reported Physicians [facility] Ordered by Maya Barron MD on 12/12/2019 Collected: 12/12/2019 Reported: 12/12/2019 11:58 Reported Physicians See Note None Note: Reported Physicians:Ordering: Maya AlvarengaAttending: Maya Barron Reviewed by Maya Barron MD on 12/12; All test results are final unless otherwise noted. Gastrointestinal Panel PCR [facility] Ordered by Maya Barron MD on [...] OTHER EXPERTS. (E.G. GUIDELINES/POLICYSTATEMENTS PUBLISHED BY THE [place] [employer]OR THE SOCIETY FOR HEALTHCARE EPIDEMIOLOGY OF [place] ANDTHE INFECTIOUS DISEASE SOCIETY OF [place]).CLOC. difficile toxin [id number]. difficile toxin detected Reviewed by Maya Barron MD on 12/12; All test results are final unless otherwise noted. Reported Physicians [facility] Ordered by Maya Barron MD on 12/12/2019 Collected: 12/12/2019 Reported: 12/12/2019 14:17 Reported Physicians See Note None Note: Reported Physicians:Ordering: Maya AlvarengaAttending: Maya Barron Reviewed by Maya Barron MD on 12/12; All test results are final unless otherwise noted. CBC W AUTO DIFF [facility] Ordered by Maya Barron MD on [...] Auto See Note (0-2) N (Normal) Note: 0.00.0L0.00.8H78406284915.0Respons ible Observer: IG% IG% 100.1375 (B) Hct [...] test results are final unless otherwise noted. [facility] Ordered by Maya Barron MD on [...] unless otherwise noted. Prothrombin Time & INR [facility] Ordered by Maya Barron MD on [...] are final unless otherwise noted. Reported Physicians [facility] Ordered by Maya Barron MD on 12/07/2019 Collected: 12/07/2019 Reported: 12/07/2019 17:21 Reported Physicians See Note None Note: Reported Physicians:Ordering: Aj Snowending: Jos Castellanos To: Maya Barron Reviewed by Maya Barron MD on 12/09; All test results are final unless otherwise noted. Urinalysis w/out microscopy Office Lab Ordered by Maya Barron MD on [address] [place] [address], [phone] Specimen Source: Urine Collected: Reported: 2020 11:41 [...] Ordered by Maya Barron MD on 12/27/[address] [place] [address], [phone] Specimen Source: Urine Collected: Reported: 2019 13:46 [...] Procedures and Surgical History Includes: Procedures from 11/29/2019 through 11/28/2020 Procedures Code Diagnosis Performing Provider Service Location Service Date REVISIT- office visit KAYLEIGH 21 weeks gestatio n of Maya Barron MD [facility], [facility] 11/21/2020 REVISIT- office visit KAYLEIGH 20 weeks gestatio n of Maya Barron MD [facility], [facility] 11/14/2020 no charge procedure NC Palpitations Maya Barron MD [facility], [facility] 11/03/2020 no charge procedure NC Palpitations Maya Barron MD [facility], [facility] 10/31/2020 REVISIT- office visit KAYLEIGH 18 weeks gestatio n of Maya Barron MD [facility], [facility] 10/31/2020 REVISIT- office visit KAYLEIGH 17 weeks gestatio n of Maya Barron MD [facility], [facility] 10/24/2020 no charge procedure NC Palpitations Maya Alvarez [facility], [facility] 10/17/2020 REVISIT- office visit KAYLEIGH 16 weeks gestatio n of Maya Barron MD [facility], [facility] 10/17/2020 Holter Monitor, Physician review & interpretation only 54700 Palpitations Michel Villalba MD [facility] Outpt 10/11/2020 REVISIT- office visit KAYLEIGH 15 weeks gestatio n of Maya Barron MD [facility], [facility] 10/11/2020 REVISIT- office visit KAYLEIGH 13 weeks gestatio n of Maya Barron MD [facility], [facility] 09/27/2020 REVISIT- office visit KAYLEIGH 12 weeks gestatio n of Maya Barron MD [facility], [facility] 09/19/2020 EKG- Electrocardiogram/12 lead 03413 Chest pain, unspe cified Cat Gutierrez [facility], [facility] 09/11/2020 REVISIT- office visit KAYLEIGH 10 weeks gestatio n of Cat Gutierrez [facility], [facility] 09/05/2020 REVISIT- office visit KAYLEIGH 8 weeks gestation of Maya Barron MD [facility], [facility] 08/22/2020 Urinalysis w/o Microscopy (Distinct Seperate service-same da y) 61783 Frequency of micturition- Urinary Frequency Maya Barron MD [facility], [facility] 08/15/2020 RAPID STREP 13499 Acute pharyngitis, unspecified Maya Barron MD [facility], [facility] 08/15/2020 Initial Obstetrical Care Office Visit OB Le ss than 8 weeks gestation of Cat Gutierrez [facility], [facility] 021 Urinalysis w/o Microscopy 27007 Frequency of micturiti on- Urinary Frequency Maya Barron MD [facility], [facility] 07/19/2020 REVISIT- office visit KAYLEIGH Threatened Alicja Barron MD [facility], [facility] 05/26/2020 NO CHARGE- Nurse visit- OB establish [employer] Thr eatened , state, incidental Maya Barron MD [facility], [facility] 020 General Health Panel( CMP, CBC, TSH) 43712 Dysmenorrhe a, unspecified Maya Barron MD [facility], [facility] 04/10/2020 Venipuncture (routine) 57957 Dysmenorrhea, unspecified Mariela Barron MD [facility], [facility] 04/10/2020 Brief Emotional Behavior Assessment ( add -59 mod) 81728 Screening for Mental Health/Behavioral Disorder, Unspecified Maya Barron MD [facility], [facility] 04/10/2020 Urine Test 71101 Pelvic and perineal pain, Frequency of micturition- Urinary Frequency Maya Barron MD [facility], [facility] 02/25/2020 Urinalysis w/o Microscopy 19927 Frequency of micturiti on- Urinary Frequency Maya Barron MD [facility], [facility] 02/25/2020 Urine Test 63989 Amenorrhea, unspecified Maya Barron MD [facility], [facility] 12/27/2019 Surgical History Last Updated No surgical [...] 12:00AM Act laya Encounters Includes: Encounters from 11/29/2019 through 11/28/2020 Encounter Provider Location Date Check-In Time Check-Out Time D iagnosis REVISIT- Routine (OB) Visit Maya Barron MD [facility], [facility] 11/28/2020 1:34PM 1:51PM Chronic Care Mgt - Office Visit Maya Barron MD [facility], [facility] 11/21/2020 2:10PM 2:35PM Fracture of Fift h Cervical Vertebral Body, History of Psychiatric Disorders, Reactive Airway Disease REVISIT- Routine (OB) Visit Maya Barron MD [facility], [facility] 11/21/2020 11:33AM 12:01PM REVISIT- Routine (OB) Visit Maya Barron MD [facility], [facility] 11/14/2020 9:55AM 10:36AM REVISIT- Routine (OB) Visit Maya Barron MD [facility], [facility] 11/07/2020 11:42AM 12:02PM OB- ILL VISIT Maya Barron MD [facility], [facility] 11/03/2020 3:45PM 4:29PM , Generalized Anxie ty Disorder, Panic Disorder, Chest Pain Chronic Care Mgt - Office Visit Maya Barron MD [facility], [facility] 11/03/2020 2:37PM 3:38PM Chronic Care Mgt - Office Visit Maya Barron MD [facility], [facility] 10/31/2020 3:23PM 3:24PM Fracture of Fift h Cervical Vertebral Body, History of Psychiatric Disorders, Reactive Airway Disease REVISIT- Routine (OB) Visit Maya Barron MD [facility], [facility] 10/31/2020 9:54AM 10:24AM Chronic Care Mgt - Office Visit Maya Barron MD [facility], [facility] 10/24/2020 2:16PM 11:59PM REVISIT- Routine (OB) Visit Maya Barron MD [facility], [facility] 10/24/2020 10:00AM 10:47AM REVISIT- Routine (OB) Visit Maya Barron MD [facility], [facility] 10/17/2020 11:24AM 12:12PM Chronic Care Mgt - Office Visit Maya Barron MD [facility], [facility] 10/17/2020 11:25AM 12:11PM Fracture of Fift h Cervical Vertebral Body, History of Psychiatric Disorders, Reactive Airway Disease REVISIT- Routine (OB) Visit Maya Barron MD [facility], [facility] 10/11/2020 9:44AM 10:15AM OB- ILL VISIT Maya Barron MD [facility], [facility] 10/04/2020 2:12PM 2:31PM Presyncope Syndrome, Tachyca rdia, Palpitations, Difficulty Breathing (Dyspnea), Weeks of Gestation - 14 REVISIT- Routine (OB) Visit Maya Barron MD [facility], [facility] 09/27/2020 1:36PM 1:59PM telephone conversation Michel Villalba MD 09/19/2020 9:43PM 09/19/2020 11:59PM Atypical Chest Pain REVISIT- Routine (OB) Visit Maya Barron MD [facility], [facility] 09/19/2020 9:48AM 10:14AM REVISIT- Routine (OB) Visit Cat Gutierrez [facility], [facility] 09/11/2020 3:22PM 4:16PM REVISIT- Routine (OB) Visit Cat Gutierrez [facility], [facility] 09/05/2020 9:37AM 10:00AM TCMNV phone call- NO CHARGE Cat Gutierrez [facility] 09/04/2020 09/05/2020 4:54PM 09/05/2020 11:59PM [Patient Encounter] Cat Gutierrez [facility] 08/31/2020 021 2:21PM 08/22/2020 11:59PM telephone conversation Michel Villalba MD 08/2808/22/2020 11:00AM 08/22/2020 11:59PM REVISIT- Routine (OB) Visit Maya Barron MD [facility], [facility] 08/22/2020 1:56PM 2:19PM sick visit Maya Barron MD [facility], [facility] 0 08/15/2020 9:36AM 10:12AM Upper Respiratory Infection Acute, Pollakiuria Obstetrics/ first visit Cat Gutierrez [facility], [facility] 08/09/2020 9:22AM 10:56AM followup Cat Gutierrez [facility] 0 08/02/2020 10:18AM 11:42AM Generalized Anxiety Disorder , Early Stage, Abdominal Pain telephone conversation Michel Villalba MD 07/26/2020 7:59AM 07/26/2020 11:59PM [Patient Encounter] Cattee Gutierrez [facility] 07/28/2020 021 2:20PM 07/26/2020 11:59PM followup Maya Barron MD [facility] 0 07/26/2020 10:39AM 11:02AM , Generalized Anxie ty Disorder sick visit Bandar Cleveland PA-C [facility] 3:36PM 4:30PM Pyrexia followup Maya Barron MD [facility] 0 07/19/2020 10:52AM 11:30AM , Generalized Anxie ty Disorder, Pollakiuria followup Maya Barron MD [facility] 1 09/11/2019 10:43AM 11:14AM Atypical Chest Pain, Adjustm ent Disorder followup Maya Barron MD [facility] 1 08/07/2019 10:43AM 10:59AM Missed followup Maya Barron MD [facility] 05/26 1:45PM 2:11PM with Threatened Problem visit - not contagious Maya Barron MD [facility] 05/24/2020 11:13AM 12:00PM with T hreatened [Patient Encounter] Maya Barron MD 05/24/2020 020 10:17AM 04/19/2020 11:59PM followup Maya Barron MD [facility] 1 11:51AM 12:08PM ANNUAL PE-followup Maya Barron MD [facility] 04/10/2020 8:42AM 9:13AM Routine History and Physical Adult (18 - 64 Yrs), Dysmenorrhea sick visit Maya Barron MD [facility] 0 03/06/2020 3:32PM 3:42PM Sinusitis sick visit Maya Barron MD [facility] 0 02/25/2020 10:46AM 11:12AM Pollakiuria, Female Pelvic P ain followup Maya Barron MD [facility] 01/31 2:25PM 2:51PM Back Strain followup Maya Barron MD [facility] 12/26 1:25PM 1:42PM Amenorrhea, Clostridium Difficile sick visit Maya Barron MD [facility] 0 12/07/2019 4:00PM 4:17PM Abdominal Pain Insurance Includes: Active Insurance Policies Plan Name Member ID Group # Subscriber Relationship Effective Da greg 1 - MANAGED MEDICAID [facility] [id number] Georgiana Nguyen 2020 - Unknown Advance Directives Includes: Current Advance DirectivesNo Advance Directives Recorded Health Concerns Includes: Active Health ConcernsNo Active Health Concerns Recorded Goals Includes: Active GoalsNo Active Goals Recorded Interventions Includes: Interventions for active GoalsNo Interventions Recorded Evaluations & Outcomes Includes: Evaluations & Outcomes for active GoalsNo Outcomes Recorded
--- OUTSIDE RECORDS SUMMARY | 2021-04-29 17:00 | CCD ---
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 by Maya Barron MD on 10/20; All test results are final unless otherwise noted. PT/PTT [facility] Ordered by Maya Barron MD [...] are final unless otherwise noted. Reported Physicians [facility] Ordered by Maya Barron MD on 10/08/2020 Collected: 10/08/2020 Reported: 10/08/2020 03:22 Reported Physicians See Note None Note: Reported Physicians:Ordering: Sana Recinosending: Sammie Ann To: Maya Barron Reviewed by Maya Barron MD on 10/09; All test results are final unless otherwise noted. [facility] Ordered by Maya Barron [...] are final unless otherwise noted. Reported Physicians [facility] Ordered by Maya Barron MD on 10/08/2020 Collected: 10/08/2020 Reported: 10/08/2020 03:21 Reported Physicians See Note None Note: Reported Physicians:Ordering: Sana Recinosending: Sammie Ann To: Maya Barron Reviewed by Maya Barron MD on 10/09; All test results are final unless otherwise noted. CBC W AUTO DIFF [facility] Ordered by Maya Barron MD [...] Auto See Note (0-2) N (Normal) Note: [id number] Ob cocktail server: IG% IG% 100.1375 (B) Hct VFr [...] results are final unless otherwise noted. MAGNESIUM [facility] Ordered by Maya Barron MD on 10/08/2020 Collected: 10/08/2020 Reported: 10/08/2020 03:17 Magnesium SerPl-mCnc 1.8 MilliGramsPerDeciLiter_[Mass_Concentration_Units] (1.3-2.7) N (Normal) Note: Responsible Observer: Magnesium Ma gnesium 400.3300 (G) Reviewed by Maya Barron MD on 10/09; All test results are final unless otherwise noted. D-DIMER [facility] Ordered by Maya Barron MD [...] are final unless otherwise noted. Reported Physicians [facility] Ordered by Maya Barron MD on 10/08/2020 Collected: 10/08/2020 Reported: 10/08/2020 03:27 Reported Physicians See Note None Note: Reported Physicians:Ordering: Renetta Recinosttending: Sammie Ann To: Maya Barron Reviewed by Maya Barron MD on 10/09; All test results are final unless otherwise noted. TSH w/ reflex to Free T4 [facility] Ordered by Maya Barron MD on 10/04/2020 Collected: 10/04/2020 Reported: 10/04/2020 17:42 TSH SerPl DL<=0.005 mIU/L-aCnc 1.92 MicroInternationalUnitsPerMilliLiter_[Arbitrary_Con (0.35-5. 50) N (Normal) Note: Responsible Observer: TSH TSH 600 .7060 (D) Reviewed by Maya Barron MD on 10/09; All test results are final unless otherwise noted. Reported Physicians [facility] Ordered by Maya Barron MD on 10/04/2020 Collected: 10/04/2020 Reported: 10/04/2020 17:42 Reported Physicians See Note None Note: Reported Physicians:Ordering: Les Vanegastending: Fady Raza To: Maya Barron Reviewed by Maya Barron MD on 10/09; All test results are final unless otherwise noted. CBC W AUTO DIFF [facility] Ordered by Maya Barron MD [...] Auto See Note (0-2) N (Normal) Note: [id number] Ob cocktail server: IG% IG% 100.1375 (B) Hct VFr [...] test results are final unless otherwise noted. [facility] Ordered by Maya Barron [...] are final unless otherwise noted. Reported Physicians [facility] Ordered by Maya Barron MD on 10/04/2020 Collected: 10/04/2020 Reported: 10/04/2020 17:42 Reported Physicians See Note None Note: Reported Physicians:Ordering: Les Vanegasding: Fady Raza To: Maya Barron Reviewed by Maya Barron MD on 10/09; All test results are final unless otherwise noted. SED RATE [facility] Ordered by Maya Barron MD on 10/04/2020 Collected: 10/04/2020 Reported: 10/04/2020 18:05 ESR Bld Qn Westrgrn 16 (0-20) N (Normal) Note: @Reenter manual test result: 16@by Jia Lentz at 10/04/20 1805.Responsible Observer: SED RATE SED RATE 100.6400 (B) Reviewed by Maya Barron MD on 10/09; All test results are final unless otherwise noted. Reported Physicians [facility] Ordered by Maya Barron MD on 10/04/2020 Collected: 10/04/2020 Reported: 10/04/2020 18:06 Reported Physicians See Note None Note: Reported Physicians:Ordering: Les Vanegas: Fady Raza To: Maya Barron Reviewed by Maya Barron MD on 10/09; All test results are final unless otherwise noted. TROPONIN [facility] Ordered by Maya Barron MD [...] are final unless otherwise noted. Reported Physicians [facility] Ordered by Maya Barron MD on 10/04/2020 Collected: 10/04/2020 Reported: 10/04/2020 17:35 Reported Physicians See Note None Note: Reported Physicians:Ordering: Les Vanegas: Fady Raza To: Maya Barron Reviewed by Maya Barron MD on 10/09; All test results are final unless otherwise noted. CBC W AUTO DIFF [facility] Ordered by Maya Barron MD [...] Auto See Note (0-2) N (Normal) Note: [id number] Ob cocktail server: IG% IG% 100.1375 (B) Hct VFr [...] test results are final unless otherwise noted. [facility] Ordered by Maya Barron [...] are final unless otherwise noted. Reported Physicians [facility] Ordered by Maya Barron MD on 10/03/2020 Collected: 10/03/2020 Reported: 10/03/2020 20:03 Reported Physicians See Note None Note: Reported Physicians:Ordering: Yoli NapolesAttending: Charles Silva To: Maya Barron Reviewed by Maya Barron MD on 10/04; All test results are final unless otherwise noted. [facility] Ordered by Maya Barron MD on 10/03/2020 Collected: 10/03/2020 Reported: 10/03/2020 20:23 B-HCG SerPl-aCnc 95666 MilliInternationalUnitsPerMilliLiter_[Arbitrary_Con (0-10) H (High) Note: @Instrument will [...] are final unless otherwise noted. Reported Physicians [facility] Ordered by Maya Barron MD on 10/03/2020 Collected: 10/03/2020 Reported: 10/03/2020 20:23 Reported Physicians See Note None Note: Reported Physicians:Ordering: Yoli NapolesAttending: Charles Silva To: Maya Barron Reviewed by Maya Barron MD on 10/04; All test results are final unless otherwise noted. TROPONIN [facility] Ordered by Maya Barron MD [...] are final unless otherwise noted. Reported Physicians [facility] Ordered by Myaa Barron MD on 10/03/2020 Collected: 10/03/2020 Reported: 10/03/2020 20:07 Reported Physicians See Note None Note: Reported Physicians:Ordering: Yoli NapolesAttending: Charles Silva To: Maya Barron Reviewed by Maya Barron MD on 10/04; All test results are final unless otherwise noted. MANUAL DIFF [facility] Ordered by Maya Barron MD [...] are final unless otherwise noted. Reported Physicians [facility] Ordered by Maya Barron MD on 10/03/2020 Collected: 10/03/2020 Reported: 10/03/2020 19:56 Reported Physicians See Note None Note: Reported Physicians:Ordering: Yoli NapolesAttending: Charles Silva To: Maya Barron Reviewed by Maya Barron MD on 10/04; All test results are final unless otherwise noted. FREE T4 (LAB) [facility] Ordered by Maya Barron MD on 10/03/2020 Collected: 10/03/2020 Reported: 10/03/2020 20:08 T4 Free SerPl-mCnc 0.97 NanoGramsPerDeciLiter_[Mass_Concentration_Units] (0.89-1.76) N (Normal) Note: Responsible Observer: FREE T4 Free Thyroxine 600.7005 (D) Reviewed by Maya Barron MD on 10/04; All test results are final unless otherwise noted. Reported Physicians [facility] Ordered by Maya Barron MD on 10/03/2020 Collected: 10/03/2020 Reported: 10/03/2020 20:08 Reported Physicians See Note None Note: Reported Physicians:Ordering: Yoli NapolesAttending: Yoli SilvaCopyifan To: Maya Barron Reviewed by aMya Barron MD on 10/04; All test results are final unless otherwise noted. ADD ON MICROSCOPIC [facility] Ordered by Maya Barron MD on 10/03/2020 Collected: 10/03/2020 Reported: 10/03/2020 19:52 ADD ON MICROSCOPIC See Note (0-5) None Note: NOTES OTHER/NOT INTERPRETED Bacteria UrnS Ql Micro SMALL AMOUNT Bacteria UrnS Ql Micro SMALL AMOUNT Bacteria UrnS Ql Micro L Bacteria UrnS Ql Micro Bacteria UrnS Ql Micro Bacteria UrnS Ql Micro Bacteria UrnS Ql Micro [id number] Bacteria UrnS Ql Micro Bacteria UrnS Ql Micro SMALL AMOUNT Cells UrnS Micro FEW Cells UrnS Micro FEW Cells UrnS Micro FEW Cells UrnS Micro L Cells UrnS Micro Cells UrnS Micro Cells UrnS Micro Cells UrnS Micro Cells UrnS Micro WBC # Ur Manual 1-2 Reason for ordering culture: Abnormal findings UA@10/03/20 194: UA W/ MICRO added. RFLXG = IC CIF.Method of Collection:: VoidedResponsible Observer: WBC WBC 300.5005 (A) Reviewed by Maya Barron MD on 10/04; All test results are final unless otherwise noted. Reported Physicians [facility] Ordered by Maya Barron MD on 10/03/2020 Collected: 10/03/2020 Reported: 10/03/2020 19:52 Reported Physicians See Note None Note: Reported Physicians:Ordering: Yoli NapolesAttending: Yoli SilvaCopy To: Maya Barron Reviewed by Maya Barron MD on 10/04; All test results are final unless otherwise noted. UA W/ CULTURE IF ABNORMAL [facility] Ordered by Maya Barron MD on 10/03/2020 Collected: 10/03/2020 Reported: 10/03/2020 19:52 Urobilinogen Ur Ql See Note (0.2-1 EU/dl) None Note: 0.2 EU/dl0.2 EU/[id number] E U/dlResponsible Observer: UROBILINOGEN UROBILINOGEN 300.4500 (C) RBC # Ur Strip NEGATIVE (NEGATIVE) None Note: Responsible Observer: BLOOD BLOOD 300.4652 (C) Prot Ur Ql Strip See Note (NEGATIVE) None Note: [id number] EResponsible Observer: PROTEIN PROTEIN 300.3750 (C) Ketones Ur Ql Strip See Note (NEGATIVE) None Note: [id number] EResponsible Observer: KETONE KETONE 300.3900 (C) Bilirub Ur Ql Strip.auto See Note (NEGATIVE) None Note: [id number] EResponsible Observer: BILIRUBIN BILIRUBIN 300.4550 (C) Glucose Ur Strip.auto-mCnc NEGATIVE (NEGATIVE) None Note: Responsible Observer: GLUCOSE GLUC OSE 300.3850 (C) Appearance Ur See Note (CLEAR) None Note: CLEARCLEARLCLEARResponsible Observ er: APPEARANCE APPEARANCE 300.3400 (A) Color Ur See Note None Note: YELLOWYELLOWLYELLOWResponsible Obs erver: COLOR COLOR 300.3330 (A) Leukocyte esterase Ur Ql Strip See Note (NEGATIVE) None Note: [id number]@DO MICR O!!!!A Culture has been added to this specimen per established criteriaResponsible Observer: LEUKOCYTES LEUKOCYTES 300.3576 (C) Nitrite Ur Ql Strip See Note (NEGATIVE) None Note: [id number] EResponsible Observer: NITRITE NITRITE 300.3652 (B) pH [...] are final unless otherwise noted. Urine culture [facility] Ordered by Maya Barron MD on 10/03/2020 Collected: 10/03/2020 Reported: 10/04/2020 13:10 Bacteria Ur Cult See Note None Note: NGNo growth.L1NG NOTES See Note None Note: @10/03/20 1952: Urine culture adde d. RFLXG = CULT.ADD. Reviewed by Maya Barron MD on 10/04; All test results are final unless otherwise noted. Reported Physicians [facility] Ordered by Maya Barron MD on 10/03/2020 Collected: 10/03/2020 Reported: 10/04/2020 13:10 Reported Physicians See Note None Note: Reported Physicians:Ordering: Brook yeung, YoliAttending: Charles Silva To: Maya Barron Reviewed by Maya Barron MD on 10/04; All test results are final unless otherwise noted. BHCG, QUANTITATIVE [facility] Ordered by Maya Barron MD on 09/18/2020 Collected: 09/18/2020 Reported: 09/18/2020 20:21 B-HCG [facility] [id number] MilliInternationalUnitsPerMilliLiter_[Arbitrary_Con (0-10) H (High) Note: APPROXIMATE GESTATION [...] are final unless otherwise noted. Reported Physicians [facility] Ordered by Maya Barron MD on 09/18/2020 Collected: 09/18/2020 Reported: 09/18/2020 20:22 Reported Physicians See Note None Note: Reported Physicians:Ordering: Yoli NapolesAttending: Charles Silva To: Maya Barron Reviewed by Maya Barron MD on 09/20; All test results are final unless otherwise noted. CBC W AUTO DIFF [facility] Ordered by Maya Barron MD [...] Auto See Note (0-2) N (Normal) Note: 0.10.0N89517615963.1Responsible Ob cocktail server: IG% IG% 100.1375 (B) Hct VFr [...] test results are final unless otherwise noted. [facility] Ordered by Maya Barron [...] are final unless otherwise noted. Reported Physicians [facility] Ordered by Maya Barron MD on 09/18/2020 Collected: 09/18/2020 Reported: 09/18/2020 20:10 Reported Physicians See Note None Note: Reported Physicians:Ordering: Cliff Napolesending: Charles Silva To: Maya Barron Reviewed by Maya Barron MD on 09/20; All test results are final unless otherwise noted. TROPONIN [facility] Ordered by Maya Barron MD [...] are final unless otherwise noted. Reported Physicians [facility] Ordered by Maya Barron MD on 09/18/2020 Collected: 09/18/2020 Reported: 09/18/2020 20:10 Reported Physicians See Note None Note: Reported Physicians:Ordering: Brook yeung, YoliAttending: Charles Silva To: Maya Barron Reviewed by Maya Barron MD on 09/20; All test results are final unless otherwise noted. Urine culture [facility] Ordered by Cat Gutierrez RPA on 09/11/2020 Collected: 09/11/2020 Reported: 09/12/2020 13:11 Bacteria Ur Cult See Note None Note: NGNo growth.L1NG NOTES See Note None Note: GEORGIANA PICKARD IN OTHER NAME IN MEDICAL RECORD Reviewed by Cat Gutierrez RPA on 09/12; All test results are final unless otherwise noted. Reported Physicians [facility] Ordered by Cat Gutierrez RPA on 09/11/2020 Collected: 09/11/2020 Reported: 09/12/2020 13:11 Reported Physicians See Note None Note: Reported Physicians:Ordering: Cat ConwayAttending: Cat Gutierrez Reviewed by Cat Gutierrez RPA on 09/12; All test results are final unless otherwise noted. UA W/ CULTURE IF ABNORMAL [facility] Ordered by Maya Barron MD on 09/10/2020 Collected: 09/10/2020 Reported: 09/10/2020 17:48 Urobilinogen Ur Ql See Note (0.2-1 EU/dl) None Note: 0.2 EU/dl0.2 EU/[id number] E U/dlResponsible Observer: UROBILINOGEN UROBILINOGEN 300.4500 (C) RBC # Ur Strip NEGATIVE (NEGATIVE) None Note: Responsible Observer: BLOOD BLOOD 300.4652 (C) Prot Ur Ql Strip See Note (NEGATIVE) None Note: [id number] EResponsible Observer: PROTEIN PROTEIN 300.3750 (C) Ketones Ur Ql Strip See Note (NEGATIVE) None Note: [id number] ble Observer: KETONE KETONE 300.3900 (C) Bilirub Ur Ql Strip.auto See Note (NEGATIVE) None Note: [id number] EResponsible Observer: BILIRUBIN BILIRUBIN 300.4550 (C) Glucose Ur Strip.auto-mCnc NEGATIVE (NEGATIVE) None Note: Responsible Observer: GLUCOSE GLUC OSE 300.3850 (C) Appearance Ur See Note (CLEAR) None Note: CLEARCLEARLCLEARResponsible Observ er: APPEARANCE APPEARANCE 300.3400 (A) Color Ur See Note None Note: YELLOWYELLOWLYELLOWResponsible Obs erver: COLOR COLOR 300.3330 (A) Leukocyte esterase Ur Ql Strip See Note (NEGATIVE) None Note: [id number] EResponsible Observer: LEUKOCYTES LEUKOCYTES 300.3576 (C) Nitrite Ur Ql Strip See Note (NEGATIVE) None Note: [id number] EResponsible Observer: NITRITE NITRITE 300.3652 (B) pH [...] are final unless otherwise noted. Reported Physicians [facility] Ordered by Maya Barron MD on 09/10/2020 Collected: 09/10/2020 Reported: 09/10/2020 17:48 Reported Physicians See Note None Note: Reported Physicians:Ordering: Les Vanegas: Fady Raza To: Maya Barron Reviewed by Maya Barron MD on 09/11; All test results are final unless otherwise noted. BHCG, QUANTITATIVE [facility] Ordered by Maya Barron MD on 09/10/2020 Collected: 09/10/2020 Reported: 09/10/2020 15:48 B-HCG [facility] [address] MilliInternationalUnitsPerMilliLiter_[Arbitrary_Con (0-10) H (High) Note: @Instrument will [...] are final unless otherwise noted. Reported Physicians [facility] Ordered by Maya Barron MD on 09/10/2020 Collected: 09/10/2020 Reported: 09/10/2020 15:49 Reported Physicians See Note None Note: Reported Physicians:Ordering: Les Vanegas: Fady Raza To: Maya Barron Reviewed by Maya Barron MD on 09/11; All test results are final unless otherwise noted. ABO/Rh Type [facility] Ordered by Maya Barron MD on 09/10/2020 Collected: 09/10/2020 Reported: 09/10/2020 15:43 Blood bank studies Yes None Note: Responsible Observer: Prev. Histor y? Previous History? 100.0800 (A) Blood Type See Note None Note: OPO PositiveLResponsible Observer: Blood Type Blood Type 110.0950 (C) Reviewed by Maya Barron MD on 09/11; All test results are final unless otherwise noted. Reported Physicians [facility] Ordered by Maya Barron MD on 09/10/2020 Collected: 09/10/2020 Reported: 09/10/2020 15:43 Reported Physicians See Note None Note: Reported Physicians:Ordering: Les Vanegas AAttending: Fady Raza To: Maya Barron Reviewed by Maya Barron MD on 09/11; All test results are final unless otherwise noted. COVID QUEST [facility] Ordered by Maya Barron MD [...] health care providers andpatients using the following websites:https://www.[employer] .com/home/Covid-19/HCP/NAAT/fact-sxhdt3yargx://www.[employer]/home/Cov id-19/Patients/NAAT/fact-bvvwy9Ibtm test has been authorized by the FDA under anEmergency Use Authorization (EUA) for use by authorizedlaboratories.Due to the current public health emergency, [facility] is receiving a high volume of samples [...] information about COVID-19 can be foundat the zipcodemailer.com website:www.[facility].[employer]om/Covid19.THIS TEST WAS PERFORMED AT:[facility] [id number] ONEILLesponsible Observer: COVID-19 COVID-19 ТАТЬЯНА (SARS-CoV-2) [id number] 914.9252 ([facility]) Reviewed by Maya Barron MD on 08/25; All test results are final unless otherwise noted. Reported Physicians [facility] Ordered by Maya Barron MD on 08/23/2020 Collected: 08/23/2020 Reported: 08/25/2020 03:57 Reported Physicians See Note None Note: Reported Physicians:Ordering: Sana Recinosending: [facility] To: Maya Barron Reviewed by Maya Barron MD on 08/25; All test results are final unless otherwise noted. [facility] Ordered by Maya Barron MD on 08/15/[address] [place] [address], [phone] Collected: 08/15/2020 Reported: 08/15/2020 11:47 tel :[phone] strep antigen normal (negative) N (Normal) Reviewed by Maya Barron MD on 08/15; All test results are final unless otherwise noted. Urinalysis w/out microscopy Office [facility] Ordered by Maya Barron MD on 08/15/[address] [place] [address], [phone] Specimen Source: Urine Collected: 08/15/2020 Reporte d: 08/15/2020 11:03 tel:[phone] bilirubin normal (neg) N (Normal) blood normal [...] unless otherwise noted. Extended hours FLU/COV2 NAAT [facility] Ordered by Maya Barron MD on 08/15/2020 Collected: 08/15/2020 Reported: 08/15/2020 15:55 Extended hours FLU/COV2 NAAT See Note None Note: TNPNo Reportable ResultLTNPNo Repo rtable [id number] NOTES See Note None Note: GEORGIANA PICKARD IN OTHER NAME IN MEDICAL RECORD Reviewed by Maya Barron MD on 08/16; All test results are final unless otherwise noted. Reported Physicians [facility] Ordered by Maya Barron MD on 08/15/2020 Collected: 08/15/2020 Reported: 08/15/2020 15:55 Reported Physicians See Note None Note: Reported Physicians:Ordering: Maya AlvarengaAttending: Maya Barron Reviewed by Maya Barron MD on 08/16; All test results are final unless otherwise noted. Sweta Raquel SARS/FLU [facility] Ordered by Maya Barron MD on 08/15/2020 Collected: 08/15/2020 Reported: 08/15/2020 15:55 Sweta Raquel SARS/FLU See Note None Note: Sweta Raquel is a rapid, automated q ualitative anddifferentiation of Influenza type A,B and NIQR-LIW-6PFPG-RT-PCR testNORMAL VALUE IS "NOT DETECTED".Limitations of the sweta raquel Influenza A/B & GQVA-XGS-0hgpcx method.Modifications to manufacturers recommendation and proceduresmay alter performance of the test.Negative results do not preclude Influenza A,B or SARS- GQS5zhclhiwdzz and should not be used as the [...] out diseases caused by other bacterialor viral pathogens.[id number]-yip CoV RNA Resp Ql ТАТЬЯНА+probeLNNSARS SARS-COV-2 NOT [id number]-ZBF-8 NOT [id number] RNA Resp Ql ТАТЬЯНА+probeLNNFLUAInfluenza A Not [id number] A Not Piahgwkg57881-0UHFEI RNA Resp Ql ТАТЬЯНА+probeLNNINBInfluenza B Not [id number] B Not Detected NOTES See Note None Note: GEORGIANA PICKARD IN OTHER NAME IN MEDICAL RECORD Reviewed by Maya Barron MD on 08/18; All test results are final unless otherwise noted. Throat culture [facility] Ordered by Maya Barron MD on 08/15/2020 Collected: 08/15/2020 Reported: 08/17/2020 06:37 Throat culture results Normal Deisy None Reviewed by Maya Barron MD on 08/18; All test results are final unless otherwise noted. Reported Physicians [facility] Ordered by Maya Barron MD on 08/15/2020 Collected: 08/15/2020 Reported: 08/17/2020 06:37 Reported Physicians See Note None Note: Reported Physicians:Ordering: Maya AlvarengaAttending: Maya Barron Reviewed by Maya Barron MD on 08/18; All test results are final unless otherwise noted. AFFIRM [facility] Ordered by Cat Gutirerez RPA on 08/09/2020 Collected: 08/09/2020 Reported: 08/11/2020 06:52 Dionna species DNA Probe NOT DETECTED (NOT DETECTED) None Note: THIS TEST WAS PERFORMED AT:[facility] [address] [address]TWETRSCLAUDY ONEILLesponsible Observer: Dionna DNA Dionna species DNA Probe [id number] 913.2350 ([facility]) Gardnerella DNA Probe DETECTED (NOT DETECTED) H (High) Note: Increased levels of G. vaginalis m ay not be significantin the absence of signs and symptoms of bacterialvaginosis.Responsible Observer: Gardnerella DNA Gardnerella DNA Probe [id number] 913.2345 ([facility]) Trichomonas DNA Probe NOT DETECTED (NOT DETECTED) None Note: Responsible Observer: Trichomonas DNA Trichomonas DNA Probe [id number] 913.2340 ([facility]) NOTES See Note None Note: PICKARD:IN OTHER NAME IN MEDICAL RECORD Reviewed on 08/11/2020; All test result s are final unless otherwise noted. Reported Physicians [facility] Ordered by Cat Gutierrez RPA on 08/09/2020 Collected: 08/09/2020 Reported: 08/11/2020 06:52 Reported Physicians See Note None Note: Reported Physicians:Ordering: Attchandler barton: Rigo Gutierrez To: Maya Barron Reviewed on 08/11/2020; All test result s are final unless otherwise noted. HPVI [facility] [facility] Ordered by Cat Gutierrez RPA on 08/09/2020 Collected: 08/09/2020 Reported: 08/15/2020 06:53 Thin Prep Vag See Note None Note: See scanned reportSee scanned repo rtLSee scanned reportResponsible Observer: TP w/HPV if ASC Thinprep w/HPV if ASCUS 805.1454 ([facility]) NOTES See Note None Note: [id number] Technique: BRUS H-SPATULABody Site: CERVIX Reviewed by Cat Gutierrez RPA on 08/15; All test results are final unless otherwise noted. Reported Physicians [facility] Ordered by Cat Gutiererz RPA on 08/09/2020 Collected: 08/09/2020 Reported: 08/15/2020 06:53 Reported Physicians See Note None Note: Reported Physicians:Ordering: Atte ndcristiane: Rigo Gutierrez To: Maya Barron Reviewed by Cat Gutierrez RPA on 08/15; All test results are final unless otherwise noted. GCAMP [facility] Ordered by Cat Gutierrez RPA on 08/09/2020 Collected: 08/09/2020 Reported: 08/11/2020 06:52 C trach rRNA XXX Ql ТАТЬЯНА+probe See Note (NOT DETECTED) None Note: NOT DETECTEDNOT [id number] 6NOT DETECTEDResponsible Observer: C.Trach RNA Chlamydia trachomatis DNA-ТАТЬЯНА [id number] 913.9900 ([facility]) N gonorrhoea rRNA XXX Ql ТАТЬЯНА+probe See Note (NOT DETECTED) None Note: NOT DETECTEDNOT [id number] 6NOT DETECTEDResponsible Observer: GC RNA Neisseria gonorrhoeae DNA -ТАТЬЯНА [id number] 913.9905 ([facility]) Chlamydia/GC DNA Note SEE NOTE None Note: The analytical performance charact eristics of thisassay, when used to test SurePath(TM) specimens have beendetermined by [email or web address]. The modifications havenot been cleared or approved by the FDA. This assay hasbeen validated pursuant to the CLIA regulations and isused for clinical purposes.For additional information, please refer tohttps://education.aCommerce.Kudarom/faq/MRW442(This link is being provided for information/educational purposes only.)THIS TEST WAS PERFORMED AT:[place] [id number] 6[address]OSEAS MEANSMDResponsible Observer: GC/Chlam Note Chlamydia/GC DNA Note [id number] 913.9907 (A) NOTES See Note None Note: PICKARD:IN OTHER NAME IN MEDICAL RECORD Reviewed by Cat Gutierrez RPA on 08/12; All test results are final unless otherwise noted. Reported Physicians [facility] Ordered by Cat Gutierrez RPA on 08/09/2020 Collected: 08/09/2020 Reported: 08/11/2020 06:52 Reported Physicians See Note None Note: Reported Physicians:Ordering: Atte ndcristiane: Rigo Gutierrez To: Maya Barron Reviewed by Cat Gutierrez RPA on 08/12; All test results are final unless otherwise noted. ADD ON MICROSCOPIC [facility] Ordered by Cat Gutierrez RPA on 08/09/2020 Collected: 08/09/2020 Reported: 08/09/2020 12:23 ADD ON MICROSCOPIC See Note (0-5) H (High) Note: NOTES OTHER/NOT INTERPRETED Bacteria UrnS Ql Micro SMALL AMOUNT Bacteria UrnS Ql Micro SMALL AMOUNT Bacteria UrnS Ql Micro L Bacteria UrnS Ql Micro Bacteria UrnS Ql Micro Bacteria UrnS Ql Micro Bacteria UrnS Ql Micro [id number] Bacteria UrnS Ql Micro Bacteria UrnS Ql [...] Ql Micro Mucous Threads UrnS Ql Micro [id number] Mucous Threads UrnS Ql Micro Mucous Threads UrnS Ql Micro MODERATE AMOUNT WBC # Ur Manual 5-8 @08/09/20 1210: UA W/ MICRO added. RFLXG = UMIC.Method of Collection:: Clean CatchResponsible Observer: WBC WBC 300.5000 (A) Reviewed by Cat Gutierrez RPA on 08/12; All test results are final unless otherwise noted. Reported Physicians [facility] Ordered by Cat Gutierrez RPA on 08/09/2020 Collected: 08/09/2020 Reported: 08/10/2020 17:47 Reported Physicians See Note None Note: Reported Physicians:Ordering: Attchandler barton: Rigo Gutierrez To: Maya Barron Reviewed by Cat Gutierrez RPA on 08/12; All test results are final unless otherwise noted. MEDMATCH [facility] Ordered by Cat Gutierrez RPA on 08/09/2020 Collected: 08/09/2020 Reported: 08/13/2020 15:56 MEDMATCH See scanned report None Note: Responsible Observer: MEDMATCH MED MATCH [phone] ([facility]) Reviewed by Cat Gutierrez RPA on 08/14; All test results are final unless otherwise noted. Reported Physicians [facility] Ordered by Cat Gutierrez RPA on 08/09/2020 Collected: 08/09/2020 Reported: 08/13/2020 15:56 Reported Physicians See Note None Note: Reported Physicians:Ordering: Atte nding: Rigo Gutierrez To: Maya Barron Reviewed by Cat Gutierrez RPA on 08/14; All test results are final unless otherwise noted. URINALYSIS [facility] Ordered by Cat Gutierrez RPA on 08/09/2020 Collected: 08/09/2020 Reported: 08/09/2020 12:23 Urobilinogen Ur Ql See Note (0.2-1 EU/dl) None Note: 1 EU/dl1 EU/[id number] EU/dlRe sponsible Observer: UROBILINOGEN UROBILINOGEN 300.4500 (C) RBC # Ur Strip NEGATIVE (NEGATIVE) None Note: Responsible Observer: BLOOD BLOOD 300.4650 (C) Prot Ur Ql Strip See Note (NEGATIVE) None Note: [id number] ble Observer: PROTEIN PROTEIN 300.3750 (C) Ketones Ur Ql Strip See Note (NEGATIVE) None Note: [id number] ble Observer: KETONE KETONE 300.3900 (C) Bilirub Ur Ql Strip.auto See Note (NEGATIVE) None Note: [id number] EResponsible Observer: BILIRUBIN BILIRUBIN 300.4550 (C) Glucose Ur Strip.auto-mCnc NEGATIVE (NEGATIVE) None Note: Responsible Observer: GLUCOSE GLUC OSE 300.3850 (C) Appearance Ur See Note (CLEAR) None Note: CLEARCLEARLCLEARResponsible Observ er: APPEARANCE APPEARANCE 300.3400 (A) Color Ur See Note None Note: DARK YELLOWDARK YELLOWLDARK YELLOW Responsible Observer: COLOR COLOR 300.3300 (A) Leukocyte esterase Ur Ql Strip See Note (NEGATIVE) None Note: [id number]@DO MICR O!!!!Responsible Observer: LEUKOCYTES LEUKOCYTES 300.3575 (C) Nitrite Ur Ql Strip See Note (NEGATIVE) None Note: [id number] EResponsible Observer: NITRITE NITRITE 300.3650 (B) pH [...] are final unless otherwise noted. Urine culture [facility] Ordered by Cat Gutierrez RPA on 08/09/2020 Collected: 08/09/2020 Reported: 08/10/2020 08:33 Bacteria Ur Cult See Note None Note: NGNo growth.L1NG Reviewed by Cat Gutierrez [facility] on 08/14; All test results are final unless otherwise noted. Varicella-Zoster IgG Antibody [facility] Ordered by Cat Gutierrez [facility] on 08/09/2020 Collected: 08/09/2020 Reported: 08/10/2020 17:47 VZV IgG Ser [place] 242.10 None Note: Index Interpr etation [...] Antibody Immunity Screen, ACIF.THIS TEST WAS PERFORMED AT:[address] [id number] ME RATI,MDResponsible Observer: VARICELLA IGG Varicella-Zoster IgG Antibody [id number] 370.0466 ([facility]) NOTES See Note None Note: Patient Street Address: [facility] [address]Patient [place]: [place] [facility] Zip Code: [address]Vryrmsv Reviewed by Cat Gutierrez RPA on 08/12; All test results are final unless otherwise noted. Type and Screen [facility] Ordered by Cat Gutierrez RPA [...] are final unless otherwise noted. Reported Physicians [facility] Ordered by Cat Gutierrez RPA on 08/09/2020 Collected: 08/09/2020 Reported: 08/09/2020 12:39 Reported Physicians See Note None Note: Reported Physicians:Ordering: Cat ConwayAttending: Rigo Gutierrez To: Maya Barron Reviewed by Cat Gutierrez RPA on 08/10; All test results are final unless otherwise noted. HCV RFX ТАТЬЯНА [facility] Ordered by Cat Gutierrez RPA on 08/09/2020 Collected: 08/09/2020 Reported: 08/10/2020 17:47 HCV Ab Ser Ql See Note (NON-REACTIVE) None Note: [id number] 7NON-REACTIVEResponsible Observer: HEP C ANTIBODY Hepatitis C Antibody [id number] 914.5096 ([facility]) HCV RNA Qualitative (ТАТЬЯНА) 0.54 (<1.00) None Note: HCV antibody was non-reactive. The re is no laboratoryevidence of HCV infection.In most cases, no further action is required. However,if recent HCV exposure is suspected, a test for HCV RNA(test code 27186) is suggested.For additional information please refer tohttp://education.4Less/faq/DGC86b9(This link is being provided for informational/educational purposes only.)THIS TEST WAS PERFORMED AT:[address] [address]CLAUDY ONEILLespbubba Observer: SIG TO C/O SIGNAL TO CUTOFF [id number] 572.4599 ([facility]) NOTES See Note None Note: Patient Street Address: [address] [place] [address] [address] City: [place] [facility] Zip Code: [address]Cpeoexe Reviewed by Cat Gutierrez RPA on 08/12; All test results are final unless otherwise noted. Reported Physicians [facility] Ordered by Cat Gutierrez RPA on 08/09/2020 Collected: 08/09/2020 Reported: 08/10/2020 17:47 Reported Physicians See Note None Note: Reported Physicians:Ordering: Atte nding: Rigo Gutierrez To: Maya Barron Reviewed by Cat Gutierrez RPA on 08/12; All test results are final unless otherwise noted. CBC [facility] Ordered by Cat Gutierrez RPA [...] Auto See Note (0-2) N (Normal) Note: 0.20.8E69237287206.2Responsible Ob cocktail server: IG% IG% 100.1375 (B) Hct VFr [...] results are final unless otherwise noted. TSH [facility] Ordered by Cat Gutierrez RPA on 08/09/2020 Collected: 08/09/2020 Reported: 08/09/2020 14:24 TSH SerPl DL<=0.005 mIU/L-aCnc 1.18 MicroInternationalUnitsPerMilliLiter_[Arbitrary_Con (0.35-5. 50) N (Normal) Note: Responsible Observer: TSH TSH 600 .7055 (D) Reviewed by Cat Gutierrez RPA on 08/14; All test results are final unless otherwise noted. Lead (Venous) Wh.Bld [facility] Ordered by Cat Gutierrez RPA on 08/09/2020 Collected: 08/09/2020 Reported: 08/10/2020 17:47 Lead Bld-sCnc <1 (<5) None Note: See Note 1Note 1This test was faith desirtigist and its analytical performancecharacteristics have been determined by [facility]. It has not been cleared or approved by theA. This assay has been validated pursuant to the CLIAregulations and is used for clinical purposes.THIS TEST WAS PERFORMED AT:[address] [address]GOWVWY MERATI,MDResponsible Observer: Lead, WB Lead, Whole Blood [id number] 911.2190 ([facility]) NOTES See Note None Note: Patient Street Address: [address] [place] [address] [address]Patient City: [place] [facility] Zip Code: [address]Hmciwss Reviewed by Cat Gutierrez RPA on 08/14; All test results are final unless otherwise noted. ncPN REF [facility] Ordered by Cat Gutierrez RPA on 08/09/2020 Collected: 08/09/2020 Reported: 08/13/2020 15:26 T pallidum Ab Ser Ql Aggl See Note (Nonreactive) None Note: [id number] onreactiveResponsible Observer: TP-PA Treponema pallidum Ab (TP-PA) [id number] 908.0286 ([facility]) HIV1 RNA SerPl Ql ТАТЬЯНА+probe See Note None Note: TNPNo Reportable ResultLTNPNo Repo rtable ResultLLEP.LIVENTNPResponsible Observer: HIV 1 RNA, QL T HIV 1 RNA, QL TMA [id number] 908.0254 ([facility]) HBV surface Ag SerPl Ql IA See Note (NON-REACTIVE) None Note: DTV-HXQUODIXYOF-[id number] 5NON-REACTIVEResponsible Observer: HBSAG Hepatitis B Surface Antigen 05929333 910.2004 ([facility]) RUBV IgG SerPl IA-aCnc 1.76 None Note: Index Interpretatio n ----- <0.90 Not consistent with immunity 0.90-0.99 Equivocal > or = 1.00 Consistent with immunityThe presence of rubella IgG antibody suggestsimmunization or past or current infection withrubella virus.THIS TEST WAS PERFORMED AT:[place] [id number] [place] [address],MDResponsible Observer: Rubella IgG Ab Rubella IgG Ab 69807005 911.2840 ([facility]) HIV1 Ab SerPlBld Ql IA.rapid See Note None Note: TNPNo Reportable ResultLTNPNo Repo rtable ResultLLEP.LIVENTNPResponsible Observer: HIV 1 AB HIV 1 AB [id number] 908.0250 ([facility]) HBsAg Confirmation See Note None Note: TNPNo Reportable ResultLTNPNo Repo rtable ResultLLEP.LIVENTNPResponsible Observer: HBsAg Confirm HBsAg Confirmation [id number] 910.2006 ([facility]) HIV (1&2) Screen, 4th Gen NON-REACTIVE (NON-REACTIVE) [...] for this purpose.For additional information please refer tohttp://education.4Less/faq/GRN031(This link is being provided for informational/educational purposes only.)The performance of this assay has not been clinicallyvalidated in patients less than 2 years old.THIS TEST WAS PERFORMED AT:[address] [place] [address],MDResponsible Observer: HIV ABS HIV (1&2) Screen, 4th Gen [id number] 908.0228 ([facility]) Reviewed by Cat Gutierrez RPA on 08/14; All test results are final unless otherwise noted. Reported Physicians [facility] Ordered by Cat Gutierrez RPA on 08/09/2020 Collected: 08/09/2020 Reported: 08/13/2020 15:27 Reported Physicians See Note None Note: Reported Physicians:Ordering: Attchandler barton: Nguyen Gutierrezy To: Maya Barron Reviewed by Cat Gutierrez RPA on 08/14; All test results are final unless otherwise noted. BHCG, QUANTITATIVE [facility] Ordered by Cat Gutierrez RPA on 08/08/2020 Collected: 08/08/2020 Reported: 08/08/2020 11:53 [facility] [address] MilliInternationalUnitsPerMilliLiter_[Arbitrary_Con (0-10) H (High) Note: @Instrument will [...] are final unless otherwise noted. Reported Physicians [facility] Ordered by Cat Gutierrez RPA on 08/08/2020 Collected: 08/08/2020 Reported: 08/08/2020 11:54 Reported Physicians See Note None Note: Reported Physicians:Ordering: Atte oralia: Rigo Gutierrez To: Maya Barron Reviewed by Cat Gutierrez RPA on 08/08; All test results are final unless otherwise noted. Type and Screen [facility] Ordered by Cat Gutierrez RPA [...] are final unless otherwise noted. Reported Physicians [facility] Ordered by Cat Gutierrez RPA on 08/01/2020 Collected: 08/01/2020 Reported: 08/01/2020 06:03 Reported Physicians See Note None Note: Reported Physicians:Ordering: Aj Ferreiraending: Jos Rivas To: Maya Barron Reviewed by Cat Gutierrez RPA on 08/01; All test results are final unless otherwise noted. BHCG, QUANTITATIVE [facility] Ordered by Cat Gutierrez RPA on 08/01/2020 Collected: 08/01/2020 Reported: 08/01/2020 02:26 B-HCG [facility] [address] MilliInternationalUnitsPerMilliLiter_[Arbitrary_Con (0-10) H (High) Note: @Instrument will [...] are final unless otherwise noted. Reported Physicians [facility] Ordered by Cat Gutierrez RPA on 08/01/2020 Collected: 08/01/2020 Reported: 08/01/2020 02:26 Reported Physicians See Note None Note: Reported Physicians:Ordering: Cristino FerreiraAttending: Jos Rivas To: Maya Barron Reviewed by Cat Gutierrez RPA on 08/01; All test results are final unless otherwise noted. CBC W AUTO DIFF [facility] Ordered by Cat Gutierrez RPA [...] Auto See Note (0-2) N (Normal) Note: 0.10.7D75478754854.1Responsible Ob cocktail server: IG% IG% 100.1375 (B) Hct VFr [...] test results are final unless otherwise noted. [facility] Ordered by Cat Gutierrez [...] are final unless otherwise noted. Reported Physicians [facility] Ordered by Cat Gutierrez RPA on 08/01/2020 Collected: 08/01/2020 Reported: 08/01/2020 02:26 Reported Physicians See Note None Note: Reported Physicians:Ordering: Aj Ferreiraending: Jos Rivas To: Maya Barron Reviewed by Cat Gutierrez RPA on 08/01; All test results are final unless otherwise noted. ADD ON MICROSCOPIC [facility] Ordered by Cat Gutierrez [facility] on 08/01/2020 Collected: 08/01/2020 Reported: 08/01/2020 01:01 ADD ON MICROSCOPIC See Note (0-5) None Note: NOTES OTHER/NOT INTERPRETED Bacteria UrnS Ql Micro MODERATE AMOUNT Bacteria UrnS Ql Micro MODERATE AMOUNT Bacteria UrnS Ql Micro L Bacteria UrnS Ql Micro Bacteria UrnS Ql Micro Bacteria UrnS Ql Micro Bacteria UrnS Ql Micro [id number] Bacteria UrnS Ql Micro Bacteria UrnS Ql [...] 0048: UA W/ MICRO added. RFLXG = [facility] CIF.Method of Collection:: VoidedResponsible Observer: RBC RBC 300.4900 (A) Reviewed by Cat Gutierrez RPA on 08/01; All test results are final unless otherwise noted. Reported Physicians [facility] Ordered by Cat Gutierrez [facility] on 08/01/2020 Collected: 08/01/2020 Reported: 08/01/2020 01:01 Reported Physicians See Note None Note: Reported Physicians:Ordering: Aj Ferreiraending: Jos Rivas To: Maya Barron Reviewed by Cat Gutierrez [facility] on 08/01; All test results are final unless otherwise noted. UA W/ CULTURE IF ABNORMAL [facility] Ordered by Cat Gutierrez RPA on 08/01/2020 Collected: 08/01/2020 Reported: 08/01/2020 01:01 Urobilinogen Ur Ql See Note (0.2-1 EU/dl) None Note: 0.2 EU/dl0.2 EU/[id number] E U/dlResponsible Observer: UROBILINOGEN UROBILINOGEN 300.4500 (C) RBC # Ur Strip SMALL (NEGATIVE) None Note: @DO MICRO!!!!Responsible Observer: BLOOD BLOOD 300.4652 (C) Prot Ur Ql Strip See Note (NEGATIVE) None Note: [id number] EResponsible Observer: PROTEIN PROTEIN 300.3750 (C) Ketones Ur Ql Strip See Note (NEGATIVE) None Note: 15 mg/dL15 mg/vKI096570998333 mg/d LResponsible Observer: KETONE KETONE 300.3900 (C) Bilirub Ur Ql Strip.auto See Note (NEGATIVE) None Note: [id number] EResponsible Observer: BILIRUBIN BILIRUBIN 300.4550 (C) Glucose Ur Strip.auto-mCnc NEGATIVE (NEGATIVE) None Note: Responsible Observer: GLUCOSE GLUC OSE 300.3850 (C) Appearance Ur See Note (CLEAR) None Note: CLEARCLEARLCLEARResponsible Observ er: APPEARANCE APPEARANCE 300.3400 (A) Color Ur See Note None Note: YELLOWYELLOWLYELLOWResponsible Obs erver: COLOR COLOR 300.3330 (A) Leukocyte esterase Ur Ql Strip See Note (NEGATIVE) None Note: [id number]@DO MICR O!!!!A Culture has been added to this specimen per established criteriaResponsible Observer: LEUKOCYTES LEUKOCYTES 300.3576 (C) Nitrite Ur Ql Strip See Note (NEGATIVE) None Note: [id number] EResponsible Observer: NITRITE NITRITE 300.3652 (B) pH [...] are final unless otherwise noted. Urine culture [facility] Ordered by Cat Gutierrez RPA on 08/01/2020 Collected: 08/01/2020 Reported: 08/02/2020 07:41 Urine culture result See Note None Note: Greater than 100,000 CFU/MLLactoba cilli no senst done NOTES See Note None Note: @08/01/20 0101: Urine culture addchandler d. RFLXG = CULT.ADD. Reviewed by Cat Gutierrez RPA on 08/02; All test results are final unless otherwise noted. Reported Physicians [facility] Ordered by Cat Gutierrez [facility] on 08/01/2020 Collected: 08/01/2020 Reported: 08/02/2020 07:41 Reported Physicians See Note None Note: Reported Physicians:Ordering: Aj Ferreiraending: Jos Rivas To: Maya Barron Reviewed by Cat Gutierrez RPA on 08/02; All test results are final unless otherwise noted. BHCG, QUANTITATIVE [facility] Ordered by Cat Gutierrez RPA on 07/31/2020 Collected: 07/31/2020 Reported: 07/31/2020 16:53 B-HCG [facility] [address] MilliInternationalUnitsPerMilliLiter_[Arbitrary_Con (0-10) H (High) Note: @Instrument will [...] are final unless otherwise noted. Reported Physicians [facility] Ordered by Cat Gutierrez RPA on 07/31/2020 Collected: 07/31/2020 Reported: 07/31/2020 16:53 Reported Physicians See Note None Note: Reported Physicians:Ordering: Jannet barton: Cat Gutierrez Reviewed by Cat Gutierrez RPA on 08/01; All test results are final unless otherwise noted. ADD ON MICROSCOPIC [facility] Ordered by Cat Gutierrez RPA on 07/27/2020 Collected: 07/27/2020 Reported: 07/27/2020 21:36 ADD ON MICROSCOPIC See Note (0-5) None Note: NOTES OTHER/NOT INTERPRETED Bacteria UrnS Ql Micro SMALL AMOUNT Bacteria UrnS Ql Micro SMALL AMOUNT Bacteria UrnS Ql Micro L Bacteria UrnS Ql Micro Bacteria UrnS Ql Micro Bacteria UrnS Ql Micro Bacteria UrnS Ql Micro [id number] Bacteria UrnS Ql Micro Bacteria UrnS Ql [...] are final unless otherwise noted. Reported Physicians [facility] Ordered by Cat Gutierrez RPA on 07/27/2020 Collected: 07/27/2020 Reported: 07/27/2020 21:37 Reported Physicians See Note None Note: Reported Physicians:Ordering: Daquan BustamanteAttending: Daquan GoodCopyifan To: Maya Barron Reviewed by Cat Gutierrez RPA on 07/28; All test results are final unless otherwise noted. UA W/ CULTURE IF ABNORMAL [facility] Ordered by Cat Gutierrez RPA on 07/27/2020 Collected: 07/27/2020 Reported: 07/27/2020 21:36 Urobilinogen Ur Ql See Note (0.2-1 EU/dl) None Note: 0.2 EU/dl0.2 EU/[id number] E U/dlResponsible Observer: UROBILINOGEN UROBILINOGEN 300.4500 (C) RBC # Ur Strip NEGATIVE (NEGATIVE) None Note: Responsible Observer: BLOOD BLOOD 300.4652 (C) Prot Ur Ql Strip See Note (NEGATIVE) None Note: [id number] EResponsible Observer: PROTEIN PROTEIN 300.3750 (C) Ketones Ur Ql Strip See Note (NEGATIVE) None Note: [id number] EResponsible Observer: KETONE KETONE 300.3900 (C) Bilirub Ur Ql Strip.auto See Note (NEGATIVE) None Note: [id number] EResponsible Observer: BILIRUBIN BILIRUBIN 300.4550 (C) Glucose Ur Strip.auto-mCnc NEGATIVE (NEGATIVE) None Note: Responsible Observer: GLUCOSE GLUC OSE 300.3850 (C) Appearance Ur See Note (CLEAR) None Note: CLEARCLEARLCLEARResponsible Observ er: APPEARANCE APPEARANCE 300.3400 (A) Color Ur See Note None Note: YELLOWYELLOWLYELLOWResponsible Obs erver: COLOR COLOR 300.3330 (A) Leukocyte esterase Ur Ql Strip See Note (NEGATIVE) None Note: [id number]@DO MICR O!!!!A Culture has been added to this specimen per established criteriaResponsible Observer: LEUKOCYTES LEUKOCYTES 300.3576 (C) Nitrite Ur Ql Strip See Note (NEGATIVE) None Note: [id number] EResponsible Observer: NITRITE NITRITE 300.3652 (B) pH [...] are final unless otherwise noted. Urine culture [facility] Ordered by Cat Gutierrez [facility] on 07/27/2020 Collected: 07/27/2020 Reported: 07/29/2020 07:36 Urine culture result 50,000 CFU/ML Lactobacilli no senst done None NOTES See Note None Note: @07/27/202136: Urine culture addchandler d. RFLXG = CULT.ADD. Reviewed by Cat Gutierrez [facility] on 07/31; All test results are final unless otherwise noted. Reported Physicians [facility] Ordered by Cat Gutierrez [facility] on 07/27/2020 Collected: 07/27/2020 Reported: 07/29/2020 07:37 Reported Physicians See Note None Note: Reported Physicians:Ordering: Daquan BustamanteAttending: Ariella Good To: Maya Barron Reviewed by Cat Gutierrez [facility] on 07/31; All test results are final unless otherwise noted. CBC W AUTO DIFF [facility] Ordered by Cat Gutierrez [facility] on 07/27/2020 Collected: 07/27/2020 Reported: 07/27/2020 20:10 [...] Auto See Note (0-2) N (Normal) Note: 0.20.7L62018760506.2Responsible Ob cocktail server: IG% IG% 100.1375 (B) Hct VFr [...] are final unless otherwise noted. Reported Physicians [facility] Ordered by Cat Gutierrez RPA on 07/27/2020 Collected: 07/27/2020 Reported: 07/27/2020 20:11 Reported Physicians See Note None Note: Reported Physicians:Ordering: Daquan BustamanteAttending: Ariella Good To: Maya Barron Reviewed by Cat Gutierrez RPA on 07/28; All test results are final unless otherwise noted. Type and Screen [facility] Ordered by Cat Gutierrez RPA [...] are final unless otherwise noted. Reported Physicians [facility] Ordered by Cat Gutierrez RPA on 07/27/2020 Collected: 07/27/2020 Reported: 07/27/2020 20:48 Reported Physicians See Note None Note: Reported Physicians:Ordering: Daquan BustamanteAttending: Daquan GoodCopyifan To: Maya Barron Reviewed by Cat Gutierrez RPA on 07/28; All test results are final unless otherwise noted. CMP [facility] Ordered by Cat Gutierrez RPA [...] Creatinine C reatinine 400.1600 (G) Reviewed by Cta Gutierrez RPA on 07/28; All test results are final unless otherwise noted. Reported Physicians [facility] Ordered by Cat Gutierrez [facility] on 07/27/2020 Collected: 07/27/2020 Reported: 07/27/2020 20:37 Reported Physicians See Note None Note: Reported Physicians:Ordering: Daquan BustamanteAttending: Daquan GoodCopy To: Maya Barron Reviewed by Cat Gutierrez [facility] on 07/28; All test results are final unless otherwise noted. CHRISTIANACAREG, QUANTITATIVE [facility] Ordered by Cat Brenda [facility] on 07/27/2020 Collected: 07/27/2020 Reported: 07/27/2020 22:08 [...] QUANTITATIVE 600.5006 (G) Reviewed by Cat Gutierrez [facility] on 07/28; All test results are final unless otherwise noted. Reported Physicians [facility] Ordered by Cat Gutierrez [facility] on 07/27/2020 Collected: 07/27/2020 Reported: 07/27/2020 22:08 Reported Physicians See Note None Note: Reported Physicians:Ordering: Daquan BustamanteAttending: Ariella Good To: Maya Barron Reviewed by Cat [facility] on 07/28; All test results are final unless otherwise noted. CHRISTIANACAREG, QUANTITATIVE [facility] Ordered by Maya Barron MD [...] are final unless otherwise noted. Reported Physicians [facility] Ordered by Maya Barron MD on 07/26/2020 Collected: 07/26/2020 Reported: 07/26/2020 16:48 Reported Physicians See Note None Note: Reported Physicians:Ordering: Maya AlvarengaAttending: Maya Barron Reviewed by Maya Barron MD on 07/27; All test results are final unless otherwise noted. Sweta Raquel SARS/FLU [facility] Ordered by Bandar Cleveland PA-C on 07/25/2020 Collected: 07/25/2020 Reported: 07/25/2020 18:47 Sweta Raquel SARS/FLU See Note None Note: Sweta Raquel is a rapid, automated q ualitative anddifferentiation of Influenza type A,B and PDAV-UKG-1INHY-RT-PCR testNORMAL VALUE IS "NOT DETECTED".Limitations of the sweta raquel Influenza A/B & XYAT-SKY-5wjdbv method.Modifications to manufacturers recommendation and proceduresmay alter performance of the test.Negative results do not preclude Influenza A,B or SARS- NRL2magijshjma and should not be used as the [...] out diseases caused by other bacterialor viral pathogens.91207-4SLPC-CkV-3 RNA Resp Ql ТАТЬЯНА+probeLNNOSNo O rganisms [id number] Organisms Detected Reviewed by Bandar Cleveland PA-C on ; All test results are final unless otherwise noted. Reported Physicians [facility] Ordered by Bandra Cleveland PA-C on 07/25/2020 Collected: 07/25/2020 Reported: 07/25/2020 18:47 Reported Physicians See Note None Note: Reported Physicians:Ordering: Janice Wilsonending: Kami Cleveland To: Health, Public Reviewed by Bandar Cleveland PA-C on ; All test results are final unless otherwise noted. Extended hours FLU/COV2 NAAT [facility] Ordered by Bandar Cleveland PA-C on 07/25/2020 Collected: 07/25/2020 Reported: 07/25/2020 18:47 Extended hours FLU/COV2 NAAT See Note None Note: TNPNo Reportable ResultLTNPNo Repo rtable [id number] Reviewed by Bandar Cleveland PA-C on ; All test results are final unless otherwise noted. Reported Physicians [facility] Ordered by Bandar Cleveland PA-C on 07/25/2020 Collected: 07/25/2020 Reported: 07/25/2020 18:47 Reported Physicians See Note None Note: Reported Physicians:Ordering: Janice Wilsonending: Kami Cleveland To: Health, Public Reviewed by Bandar Cleveland PA-C on ; All test results are final unless otherwise noted. CBC W AUTO DIFF [facility] Ordered by Maya Barron MD [...] Auto See Note (0-2) N (Normal) Note: [id number] Ob cocktail server: IG% IG% 100.1375 (B) Hct VFr [...] test results are final unless otherwise noted. [facility] Ordered by Maya Barron [...] are final unless otherwise noted. Reported Physicians [facility] Ordered by Maya Barron MD on 07/22/2020 Collected: 07/22/2020 Reported: 07/22/2020 02:00 Reported Physicians See Note None Note: Reported Physicians:Ordering: Hong LandaverdeAttending: Alon Douglas To: Maya Barron Reviewed by Maya Barron MD on 07/24; All test results are final unless otherwise noted. Extended hours FLU/COV2 NAAT [facility] Ordered by Maya Barron MD on 07/22/2020 Collected: 07/22/2020 Reported: 07/22/2020 01:29 Extended hours FLU/COV2 NAAT See Note None Note: TNPNo Reportable ResultLTNPNo Repo rtable [id number] Reviewed by Maya Barron MD on 07/24; All test results are final unless otherwise noted. Reported Physicians [facility] Ordered by Maya Barron MD on 07/22/2020 Collected: 07/22/2020 Reported: 07/22/2020 01:29 Reported Physicians See Note None Note: Reported Physicians:Ordering: Hong LandaverdeAttending: Alon Douglas To: Maya Barron Reviewed by Maya Barron MD on 07/24; All test results are final unless otherwise noted. Sweta Raquel SARS/FLU [facility] Ordered by Maya Barron MD on 07/22/2020 Collected: 07/22/2020 Reported: 07/22/2020 01:29 Sweta Raquel SARS/FLU See Note None Note: Sweta Raquel is a rapid, automated q ualitative anddifferentiation of Influenza type A,B and DCAX-UVB-3IZPP-RT-PCR testNORMAL VALUE IS "NOT DETECTED".Limitations of the sweta raquel Influenza A/B & MRHR-GPD-8zxkmr method.Modifications to manufacturers recommendation and proceduresmay alter performance of the test.Negative results do not preclude Influenza A,B or SARS- QAB0vuoxzmszpk and should not be used as the [...] out diseases caused by other bacterialor viral pathogens.11894-2UEJQ-YpL-5 RNA Resp Ql ТАЬТЯНА+probeLNNOSNo O rganisms [id number] Organisms Detected Reviewed by Maya Barron MD on 07/24; All test results are final unless otherwise noted. Reported Physicians [facility] Ordered by Maya Barron MD on 07/22/2020 Collected: 07/22/2020 Reported: 07/22/2020 01:29 Reported Physicians See Note None Note: Reported Physicians:Ordering: Hong LandaverdeAttending: Alon Douglas To: Maya Barron Reviewed by Maya Barron MD on 07/24; All test results are final unless otherwise noted. UA W/ CULTURE IF ABNORMAL [facility] Ordered by Maya Barron MD on 07/22/2020 Collected: 07/22/2020 Reported: 07/22/2020 01:10 Urobilinogen Ur Ql See Note (0.2-1 EU/dl) None Note: 0.2 EU/dl0.2 EU/[id number] E U/dlResponsible Observer: UROBILINOGEN UROBILINOGEN 300.4500 (C) RBC # Ur Strip NEGATIVE (NEGATIVE) None Note: Responsible Observer: BLOOD BLOOD 300.4652 (C) Prot Ur Ql Strip See Note (NEGATIVE) None Note: [id number] EResponsible Observer: PROTEIN PROTEIN 300.3750 (C) Ketones Ur Ql Strip See Note (NEGATIVE) None Note: [id number] EResponsible Observer: KETONE KETONE 300.3900 (C) Bilirub Ur Ql Strip.auto See Note (NEGATIVE) None Note: [id number] EResponsible Observer: BILIRUBIN BILIRUBIN 300.4550 (C) Glucose Ur Strip.auto-mCnc NEGATIVE (NEGATIVE) None Note: Responsible Observer: GLUCOSE GLUC OSE 300.3850 (C) Appearance Ur See Note (CLEAR) None Note: CLEARCLEARLCLEARResponsible Observ er: APPEARANCE APPEARANCE 300.3400 (A) Color Ur See Note None Note: YELLOWYELLOWLYELLOWResponsible Obs erver: COLOR COLOR 300.3330 (A) Leukocyte esterase Ur Ql Strip See Note (NEGATIVE) None Note: [id number] EResponsible Observer: LEUKOCYTES LEUKOCYTES 300.3576 (C) Nitrite Ur Ql Strip See Note (NEGATIVE) None Note: [id number] EResponsible Observer: NITRITE NITRITE 300.3652 (B) pH [...] are final unless otherwise noted. Reported Physicians [facility] Ordered by Maya Barron MD on 07/22/2020 Collected: 07/22/2020 Reported: 07/22/2020 01:11 Reported Physicians See Note None Note: Reported Physicians:Ordering: Hong LandaverdeAttending: Alon Douglas To: Maya Barron Reviewed by Maya Barron MD on 07/24; All test results are final unless otherwise noted. Urine culture [facility] Ordered by Maya Barron MD on 07/19/2020 Collected: 07/19/2020 Reported: 07/21/2020 07:48 Bacteria Ur Cult See Note None Note: NGNo growth.L1NG Reviewed by Maya Barron MD on 07/21; All test results are final unless otherwise noted. Reported Physicians [facility] Ordered by Maya Barron MD on 07/19/2020 Collected: 07/19/2020 Reported: 07/21/2020 07:49 Reported Physicians See Note None Note: Reported Physicians:Ordering: Maya AlvarengaAttending: Maya Barron Reviewed by Maya Barron MD on 07/21; All test results are final unless otherwise noted. BHCG, QUANTITATIVE [facility] Ordered by Maya Barron MD [...] are final unless otherwise noted. Reported Physicians [facility] Ordered by Myaa Barron MD on 07/17/2020 Collected: 07/17/2020 Reported: 07/17/2020 12:40 Reported Physicians See Note None Note: Reported Physicians:Ordering: Maya AlvarengaAttending: Maya Barron Reviewed by Maya Barron MD on 07/17; All test results are final unless otherwise noted. [employer] COVID-19 SCHOOL [facility] Ordered by Maya Barron MD [...] molecular test, if the virus mutates in [facility] region, Covid-19 may not be detected or may bedetected less predictably.ID NOW COVID-19 is intended for testing a swab directlywithout elution in viral transport media as dilution willresult in decreased detection of low positive samples thatare near the limit of detection of the test.SWAB SAMPLES ELUTED IN VTM ARE NOT APPROPRIATE FOR USE INTHIS TEST.NOSNo Organisms [id number] Organisms Detected Reviewed by Maya Barron MD on 05/31; All test results are final unless otherwise noted. Reported Physicians [facility] Ordered by Maya Barron MD on 05/31/2020 Collected: 05/31/2020 Reported: 05/31/2020 07:08 Reported Physicians See Note None Note: Reported Physicians:Ordering: Johnny Hernándezending: Johnny CazaresCopyifan To: Maya Barron Reviewed by Maya Barron MD on 05/31; All test results are final unless otherwise noted. BHCG, QUANTITATIVE [facility] Ordered by Maya Barron MD on 05/26/2020 Collected: 05/26/2020 Reported: 05/26/2020 14:49 B-HCG [facility] [address] MilliInternationalUnitsPerMilliLiter_[Arbitrary_Con (0-10) H (High) Note: @Instrument will [...] are final unless otherwise noted. Reported Physicians [facility] Ordered by Maya Barron MD on 05/26/2020 Collected: 05/26/2020 Reported: 05/26/2020 14:50 Reported Physicians See Note None Note: Reported Physicians:Ordering: Maya AlvarengaAttending: Maya Barron Reviewed by Maya Barron MD on 05/26; All test results are final unless otherwise noted. URINALYSIS [facility] Ordered by Maya Barron MD on 05/23/2020 Collected: 05/23/2020 Reported: 05/23/2020 17:19 Urobilinogen Ur Ql See Note (0.2-1 EU/dl) None Note: 0.2 EU/dl0.2 EU/[id number] E U/dlResponsible Observer: UROBILINOGEN UROBILINOGEN 300.4500 (C) RBC # Ur Strip NEGATIVE (NEGATIVE) None Note: Responsible Observer: BLOOD BLOOD 300.4650 (C) Prot Ur Ql Strip See Note (NEGATIVE) None Note: [id number] EResponsible Observer: PROTEIN PROTEIN 300.3750 (C) Ketones Ur Ql Strip See Note (NEGATIVE) None Note: [id number] EResponsible Observer: KETONE KETONE 300.3900 (C) Bilirub Ur Ql Strip.auto See Note (NEGATIVE) None Note: [id number] EResponsible Observer: BILIRUBIN BILIRUBIN 300.4550 (C) Glucose Ur Strip.auto-mCnc NEGATIVE (NEGATIVE) None Note: Responsible Observer: GLUCOSE GLUC OSE 300.3850 (C) Appearance Ur See Note (CLEAR) None Note: CLEARCLEARLCLEARResponsible Observ er: APPEARANCE APPEARANCE 300.3400 (A) Color Ur See Note None Note: YELLOWYELLOWLYELLOWResponsible Obs erver: COLOR COLOR 300.3300 (A) Leukocyte esterase Ur Ql Strip See Note (NEGATIVE) None Note: [id number] EResponsible Observer: LEUKOCYTES LEUKOCYTES 300.3575 (C) Nitrite Ur Ql Strip See Note (NEGATIVE) None Note: [id number] EResponsible Observer: NITRITE NITRITE 300.3650 (B) pH [...] are final unless otherwise noted. Urine culture [facility] Ordered by Maya Barron MD on 05/23/2020 Collected: 05/23/2020 Reported: 05/24/2020 09:24 Bacteria Ur Cult See Note None Note: NGNo growth.L1NG Reviewed by Maya Barron MD on 05/29; All test results are final unless otherwise noted. MEDMATCH [facility] Ordered by Maya Barron MD on 05/23/2020 Collected: 05/23/2020 Reported: 05/26/2020 17:09 MEDMATCH 1.000 (> or = 1.003) None Note: Responsible Observer: MEDMATCH MED MATCH 910.07125 ([facility]) Reviewed by Maya Barron MD on 05/29; All test results are final unless otherwise noted. Reported Physicians [facility] Ordered by Maya Barron MD on 05/23/2020 Collected: 05/23/2020 Reported: 05/26/2020 17:09 Reported Physicians See Note None Note: Reported Physicians:Ordering: Maya AlvarengaAttending: Maya Barron Reviewed by Maya Barron MD on 05/29; All test results are final unless otherwise noted. Varicella-Zoster IgG Antibody [facility] Ordered by Maya Barron MD [...] Antibody Immunity Screen, ACIF.THIS TEST WAS PERFORMED AT:[address] [id number] RATI,MDResponsible Observer: VARICELLA IGG Varicella-Zoster IgG Antibody [id number] 815.5998 ([facility]) NOTES See Note None Note: Patient Street Address: [facility] [address] [facility] Zip Code: [address] Reviewed by Maya Barron MD on 05/26; All test results are final unless otherwise noted. Reported Physicians [facility] Ordered by Maya Barron MD on 05/23/2020 Collected: 05/23/2020 Reported: 05/25/2020 17:11 Reported Physicians See Note None Note: Reported Physicians:Ordering: Maya AlvarengaAttending: Maya Barron Reviewed by Maya Barron MD on 05/26; All test results are final unless otherwise noted. CBC [facility] Ordered by Maya Barron MD [...] Auto See Note (0-2) N (Normal) Note: [id number] Ob cocktail server: IG% IG% 100.1375 (B) Hct VFr [...] results are final unless otherwise noted. TSH [facility] Ordered by Maya Barron MD on 05/23/2020 Collected: 05/23/2020 Reported: 05/23/2020 18:38 TSH SerPl DL<=0.005 mIU/L-aCnc 1.87 MicroInternationalUnitsPerMilliLiter_[Arbitrary_Con (0.35-5. 50) N (Normal) Note: Responsible Observer: TSH TSH 600 .7055 (D) Reviewed by Maya Barron MD on 05/29; All test results are final unless otherwise noted. Lead (Venous) Wh.Bld [facility] Ordered by Maya Barron MD on 05/23/2020 Collected: 05/23/2020 Reported: 05/25/2020 17:11 Lead Bld-sCnc <1 (<5) None Note: See Note 1Note 1This test was faith desird and its analytical performancecharacteristics have been determined by [facility]. It has not been cleared or approved by theA. This assay has been validated pursuant to the CLIAregulations and is used for clinical purposes.THIS TEST WAS PERFORMED AT:[address] [id number] MERATI,MDResponsible Observer: Lead, WB Lead, Whole Blood [id number] 911.2190 ([facility]) NOTES See Note None Note: Patient Street Address: [facility] [address]: [place] [facility] Zip Code: [address] Reviewed by Maya Barron MD on 05/29; All test results are final unless otherwise noted. ncPN REF [facility] Ordered by Maya Barron MD on 05/23/2020 Collected: 05/23/2020 Reported: 05/27/2020 20:54 T pallidum Ab Ser Ql Aggl See Note (Nonreactive) None Note: [id number] onreactiveResponsible Observer: TP-PA Treponema pallidum Ab (TP-PA) [id number] 908.0286 ([facility]) HIV1 RNA SerPl Ql ТАТЬЯНА+probe See Note None Note: TNPNo Reportable ResultLTNPNo Repo rtable ResultLLEP.LIVENTNPResponsible Observer: HIV 1 RNA, QL T HIV 1 RNA, QL TMA [id number] 908.0254 ([facility]) HBV surface Ag SerPl Ql IA See Note (NON-REACTIVE) None Note: QSH-GTJLXTGSVYI-[id number] 0NON-REACTIVEResponsible Observer: HBSAG Hepatitis B Surface Antigen [id number] 910.2005 ([facility]) RUBV IgG SerPl IA-aCnc 1.80 None Note: Index Interpretatio n ----- <0.90 Not consistent with Immunity 0.90-0.99 Equivocal > or = 1.00 Consistent with ImmunityThe presence of rubella IgG antibody suggestsimmunization or past or current infection withrubella virus.THIS TEST WAS PERFORMED AT:[address] [id number] MERATI,MDResponsible Observer: Rubella IgG Ab Rubella IgG Ab [id number] 911.2840 ([facility]) HIV1 Ab SerPlBld Ql IA.rapid See Note None Note: TNPNo Reportable ResultLTNPNo Repo rtable ResultLLEP.LIVENTNPResponsible Observer: HIV 1 AB HIV 1 AB [id number] 908.0250 ([facility]) HBsAg Confirmation See Note None Note: TNPNo Reportable ResultLTNPNo Repo rtable ResultLLEP.LIVENTNPResponsible Observer: HBsAg Confirm HBsAg Confirmation [id number] 910.2007 ([facility]) HIV (1&2) Screen, 4th Gen NON-REACTIVE (NON-REACTIVE) [...] for this purpose.For additional information please refer tohttp://education.aCommerce.Kudarom/faq/NIC795(This link is being provided for informational/educational purposes only.)The performance of this assay has not been clinicallyvalidated in patients less than 2 years old.Responsible Observer: HIV ABS HIV (1&2) Screen, 4th Gen [id number] 908.0228 (I) Reviewed by Maya Barron MD on 05/29; All test results are final unless otherwise noted. Reported Physicians [facility] Ordered by Maya Barron MD on 05/23/2020 Collected: 05/23/2020 Reported: 05/27/2020 20:54 Reported Physicians See Note None Note: Reported Physicians:Ordering: Cara Alvarengaending: Maya Barron Reviewed by Maya Barron MD on 05/29; All test results are final unless otherwise noted. HCV RFX ТАТЬЯНА [facility] Ordered by Maya Barrno MD on 05/23/2020 Collected: 05/23/2020 Reported: 05/25/2020 17:11 HCV Ab Ser Ql See Note (NON-REACTIVE) None Note: [id number] 7NON-REACTIVEResponsible Observer: HEP C ANTIBODY Hepatitis C Antibody [id number] 914.8305 ([facility]) HCV RNA Qualitative (ТАТЬЯНА) 0.59 (<1.00) None Note: HCV antibody was non-reactive. The re is no laboratoryevidence of HCV infection.In most cases, no further action is required. However,if recent HCV exposure is suspected, a test for HCV RNA(test code 73281) is suggested.For additional information please refer tohttp://education.4Less/faq/TZV91t0(This link is being provided for informational/educational purposes only.)THIS TEST WAS PERFORMED AT:[address] [id number] ONEILLesponsible Observer: SIG TO C/O SIGNAL TO CUTOFF [id number] 914.8347 ([facility]) NOTES See Note None Note: Patient Street Address: [facility] [address]Patient City: [place] [facility] Zip Code: [address] Reviewed by Maya Barron MD on 05/26; All test results are final unless otherwise noted. Reported Physicians [facility] Ordered by Maya Barron MD on 05/23/2020 Collected: 05/23/2020 Reported: 05/25/2020 17:11 Reported Physicians See Note None Note: Reported Physicians:Ordering: Cara Alvarengaending: Maya Barron Reviewed by Maya Barron MD on 05/26; All test results are final unless otherwise noted. Type and Screen [facility] Ordered by Maya Barron MD [...] are final unless otherwise noted. Reported Physicians [facility] Ordered by Maya Barron MD on 05/23/2020 Collected: 05/23/2020 Reported: 05/23/2020 19:32 Reported Physicians See Note None Note: Reported Physicians:Ordering: Maya AlvarengaAttending: Maya Barron Reviewed by Maya Barron MD on 05/24; All test results are final unless otherwise noted. PROGESTERONE [facility] Ordered by Maya Barron MD [...] are final unless otherwise noted. Reported Physicians [facility] Ordered by Maya Barron MD on 04/27/2020 Collected: 04/27/2020 Reported: 04/27/2020 15:58 Reported Physicians See Note None Note: Reported Physicians:Ordering: Johnny HernándezAttending: Jos Castellanos To: Rubén Barron To: Cristino Castellanos Reviewed by Maya Barron MD on 04/30; All test results are final unless otherwise noted. BHCG, QUANTITATIVE [facility] Ordered by Maya Barron MD [...] are final unless otherwise noted. Reported Physicians [facility] Ordered by Maya Barron MD on 04/27/2020 Collected: 04/27/2020 Reported: 04/27/2020 14:40 Reported Physicians See Note None Note: Reported Physicians:Ordering: Aj Snowending: Jos Castellanos To: Suzanne Cazares To: Maya Barron Reviewed by Maya Barron MD on 04/30; All test results are final unless otherwise noted. CBC W AUTO DIFF [facility] Ordered by Maya Barron MD [...] Auto See Note (0-2) N (Normal) Note: 0.20.6V25836057224.2Responsible Ob cocktail server: IG% IG% 100.1375 (B) Hct VFr [...] test results are final unless otherwise noted. [facility] Ordered by Maya Barron [...] are final unless otherwise noted. Reported Physicians [facility] Ordered by Maya Barron MD on 04/25/2020 Collected: 04/25/2020 Reported: 04/25/2020 22:11 Reported Physicians See Note None Note: Reported Physicians:Ordering: Aj Ferreiraending: Jos Rivas To: Maya Barron Reviewed by Maya Barron MD on 04/26; All test results are final unless otherwise noted. BHCG, QUANTITATIVE [facility] Ordered by Maya Barron MD on 04/25/2020 Collected: 04/25/2020 Reported: 04/25/2020 22:11 B-HCG [facility]-aCnc 1758 MilliInternationalUnitsPerMilliLiter_[Arbitrary_Con (0-10) H (High) Note: @Instrument [...] are final unless otherwise noted. Reported Physicians [facility] Ordered by Maya Barron MD on 04/25/2020 Collected: 04/25/2020 Reported: 04/25/2020 22:11 Reported Physicians See Note None Note: Reported Physicians:Ordering: Aj Ferreiraending: Jos Rivas To: Maya Barron Reviewed by Maya Barron MD on 04/26; All test results are final unless otherwise noted. Urine culture [facility] Ordered by Maya Barron MD on 04/25/2020 Collected: 04/25/2020 Reported: 04/27/2020 04:50 Bacteria Ur Cult See Note None Note: NGNo growth.L1NG NOTES See Note None Note: @ NICOLE DATE was changed from 04/26 to 04/25/20@ by POMCY. Reviewed by Maya Barron MD on 04/30; All test results are final unless otherwise noted. Reported Physicians [facility] Ordered by Maya Barron MD on 04/25/2020 Collected: 04/25/2020 Reported: 04/27/2020 04:51 Reported Physicians See Note None Note: Reported Physicians:Ordering: Aj Ferreiraending: Jos Rivas To: Maya Barron Reviewed by Maya Barron MD on 04/30; All test results are final unless otherwise noted. ADD ON MICROSCOPIC [facility] Ordered by Maya Barron MD on 04/25/2020 Collected: 04/25/2020 Reported: 04/25/2020 21:54 ADD ON MICROSCOPIC See Note (0-5) None Note: NOTES OTHER/NOT INTERPRETED Bacteria UrnS Ql Micro SMALL AMOUNT Bacteria UrnS Ql Micro SMALL AMOUNT Bacteria UrnS Ql Micro L Bacteria UrnS Ql Micro Bacteria UrnS Ql Micro Bacteria UrnS Ql Micro Bacteria UrnS Ql Micro [id number] Bacteria UrnS Ql Micro Bacteria UrnS Ql [...] are final unless otherwise noted. Reported Physicians [facility] Ordered by Maya Barron MD on 04/25/2020 Collected: 04/25/2020 Reported: 04/25/2020 21:54 Reported Physicians See Note None Note: Reported Physicians:Ordering: Aj Ferreiraending: Jos Rivas To: Maya Barron Reviewed by Maya Barron MD on 04/26; All test results are final unless otherwise noted. URINALYSIS [facility] Ordered by Maya Barron MD on 04/25/2020 Collected: 04/25/2020 Reported: 04/25/2020 21:54 Urobilinogen Ur Ql See Note (0.2-1 EU/dl) None Note: 0.2 EU/dl0.2 EU/[id number] E U/dlResponsible Observer: UROBILINOGEN UROBILINOGEN 300.4500 (C) RBC # Ur Strip NEGATIVE (NEGATIVE) None Note: Responsible Observer: BLOOD BLOOD 300.4650 (C) Prot Ur Ql Strip See Note (NEGATIVE) None Note: [id number] EResponsible Observer: PROTEIN PROTEIN 300.3750 (C) Ketones Ur Ql Strip See Note (NEGATIVE) None Note: [id number] EResponsible Observer: KETONE KETONE 300.3900 (C) Bilirub Ur Ql Strip.auto See Note (NEGATIVE) None Note: [id number] EResponsible Observer: BILIRUBIN BILIRUBIN 300.4550 (C) Glucose Ur Strip.auto-mCnc NEGATIVE (NEGATIVE) None Note: Responsible Observer: GLUCOSE GLUC OSE 300.3850 (C) Appearance Ur See Note (CLEAR) None Note: CLEARCLEARLCLEARResponsible Observ er: APPEARANCE APPEARANCE 300.3400 (A) Color Ur See Note None Note: YELLOWYELLOWLYELLOWResponsible Obs erver: COLOR COLOR 300.3300 (A) Leukocyte esterase Ur Ql Strip See Note (NEGATIVE) None Note: [id number]@DO MICR O!!!!Responsible Observer: LEUKOCYTES LEUKOCYTES 300.3575 (C) Nitrite Ur Ql Strip See Note (NEGATIVE) None Note: [id number] EResponsible Observer: NITRITE NITRITE 300.3650 (B) pH [...] are final unless otherwise noted. Reported Physicians [facility] Ordered by Maya Barron MD on 04/25/2020 Collected: 04/25/2020 Reported: 04/25/2020 21:54 Reported Physicians See Note None Note: Reported Physicians:Ordering: Aj Ferreiraending: Jos Rivas To: Maya Barron Reviewed by Maya Barron MD on 04/26; All test results are final unless otherwise noted. BHCG, QUANTITATIVE [facility] Ordered by Maya Barron MD [...] are final unless otherwise noted. Reported Physicians [facility] Ordered by Maya Barron MD on 04/18/2020 Collected: 04/18/2020 Reported: 04/18/2020 15:11 Reported Physicians See Note None Note: Reported Physicians:Ordering: Maya AlvarengaAttending: Maya Barron Reviewed by Maya Barron MD on 04/19; All test results are final unless otherwise noted. ADD ON MICROSCOPIC [facility] Ordered by Maya Barron MD on 04/16/2020 Collected: 04/16/2020 Reported: 04/16/2020 23:51 ADD ON MICROSCOPIC See Note (0-5) None Note: NOTES OTHER/NOT INTERPRETED Bacteria UrnS Ql Micro SMALL AMOUNT Bacteria UrnS Ql Micro SMALL AMOUNT Bacteria UrnS Ql Micro L Bacteria UrnS Ql Micro Bacteria UrnS Ql Micro Bacteria UrnS Ql Micro Bacteria UrnS Ql Micro [id number] Bacteria UrnS Ql Micro Bacteria UrnS Ql [...] are final unless otherwise noted. Reported Physicians [facility] Ordered by Maya Barron MD on 04/16/2020 Collected: 04/16/2020 Reported: 04/16/2020 23:52 Reported Physicians See Note None Note: Reported Physicians:Ordering: Damon VinodAttending: Damon VinodCopy To: Maya Barron Reviewed by Maya Barron MD on 04/17; All test results are final unless otherwise noted. UA W/ CULTURE IF ABNORMAL [facility] Ordered by Maya Barron MD on 04/16/2020 Collected: 04/16/2020 Reported: 04/16/2020 23:51 Urobilinogen Ur Ql See Note (0.2-1 EU/dl) None Note: 0.2 EU/dl0.2 EU/[id number] E U/dlResponsible Observer: UROBILINOGEN UROBILINOGEN 300.4500 (C) RBC # Ur Strip NEGATIVE (NEGATIVE) None Note: Responsible Observer: BLOOD BLOOD 300.4652 (C) Prot Ur Ql Strip See Note (NEGATIVE) None Note: [id number] EResponsible Observer: PROTEIN PROTEIN 300.3750 (C) Ketones Ur Ql Strip See Note (NEGATIVE) None Note: [id number] ble Observer: KETONE KETONE 300.3900 (C) Bilirub Ur Ql Strip.auto See Note (NEGATIVE) None Note: [id number] EResponsible Observer: BILIRUBIN BILIRUBIN 300.4550 (C) Glucose Ur Strip.auto-mCnc NEGATIVE (NEGATIVE) None Note: Responsible Observer: GLUCOSE GLUC OSE 300.3850 (C) Appearance Ur See Note (CLEAR) None Note: CLEARCLEARLCLEARResponsible Observ er: APPEARANCE APPEARANCE 300.3400 (A) Color Ur See Note None Note: YELLOWYELLOWLYELLOWResponsible Obs erver: COLOR COLOR 300.3330 (A) Leukocyte esterase Ur Ql Strip See Note (NEGATIVE) None Note: [id number] E@DO MICRO!!!!A Culture has been added to this specimen per established criteriaResponsible Observer: LEUKOCYTES LEUKOCYTES 300.3576 (C) Nitrite Ur Ql Strip See Note (NEGATIVE) None Note: [id number] EResponsible Observer: NITRITE NITRITE 300.3652 (B) pH [...] are final unless otherwise noted. Urine culture [facility] Ordered by Maya Barron MD on 04/16/2020 Collected: 04/16/2020 Reported: 04/18/2020 06:47 Urine culture result See Note None Note: Less than 10,000 CFU/MLNormal Comm ensal FloraProbable contaminants no senst done NOTES See Note None Note: @04/16/202350: Urine culture adde d. RFLXG = CULT.ADD. Reviewed by aMya Barron MD on 04/18; All test results are final unless otherwise noted. Reported Physicians [facility] Ordered by Maya Barron MD on 04/16/2020 Collected: 04/16/2020 Reported: 04/18/2020 06:47 Reported Physicians See Note None Note: Reported Physicians:Ordering: Damon , VinodAttending: Damon, VinodCopy To: Maya Barron Reviewed by Maya Barron MD on 04/18; All test results are final unless otherwise noted. CBC W AUTO DIFF [facility] Ordered by Maya Barron MD [...] Auto See Note (0-2) N (Normal) Note: 0.20.9D72896254371.2Responsible Ob cocktail server: IG% IG% 100.1375 (B) Hct VFr [...] test results are final unless otherwise noted. [facility] [place] Ordered by Maya Barron MD [...] are final unless otherwise noted. Reported Physicians [facility] Ordered by Maya Barron MD on 04/16/2020 Collected: 04/16/2020 Reported: 04/16/2020 22:47 Reported Physicians See Note None Note: Reported Physicians:Ordering: Damon VinodAttending: Damon VinodCopy To: Maya Barron Reviewed by Maya Barron MD on 04/17; All test results are final unless otherwise noted. CMP [facility] Ordered by Maya Barron MD [...] are final unless otherwise noted. Reported Physicians [facility] Ordered by Maya Barron MD on 04/16/2020 Collected: 04/16/2020 Reported: 04/16/2020 22:44 Reported Physicians See Note None Note: Reported Physicians:Ordering: Romel Josettending: Jose E JoseodCopy To: Maya Barron Reviewed by Maya Barron MD on 04/17; All test results are final unless otherwise noted. LIPASE [facility] Ordered by Maya Barron MD on 04/16/2020 Collected: 04/16/2020 Reported: 04/16/2020 22:44 Lipase SerPl-cCnc 107 enzyme_unit_per_liter (73-393) N (Normal) Note: Responsible Observer: Lipase Lipas e 400.2310 (G) Reviewed by Maya Barron MD on 04/17; All test results are final unless otherwise noted. Reported Physicians [facility] Ordered by Maya Barron MD on 04/16/2020 Collected: 04/16/2020 Reported: 04/16/2020 22:44 Reported Physicians See Note None Note: Reported Physicians:Ordering: Randy Joseending: Alix Jose To: Maya Barron Reviewed by Maya Barron MD on 04/17; All test results are final unless otherwise noted. Type and Screen [facility] Ordered by Maya Barron MD [...] are final unless otherwise noted. Reported Physicians [facility] Ordered by Maya Barron MD on 04/16/2020 Collected: 04/16/2020 Reported: 04/16/2020 23:09 Reported Physicians See Note None Note: Reported Physicians:Ordering: Randy Joseending: Alix Jose To: Maya Barron Reviewed by Maya Barron MD on 04/17; All test results are final unless otherwise noted. [facility] Ordered by Maya Barron MD on 04/10/2020 [address] [place], [address] Collected: 04/10/2020 Reported: 04/11/2020 11:35 tel : [...] Ordered by Maya Barron MD on 04/10/2020 [address] [place], [address] Collected: 04/10/2020 Reported: 04/11/2020 11:35 tel : [...] Ordered by Maya Barron MD on 04/10/2020 [address] [place], [address] Collected: 04/10/2020 Reported: 04/11/2020 11:35 tel :[phone] ext. 1500 TSH 1.336 uIu/mL (0.5-5.8) None Note: Responsible Observer: AW Reviewed by Maya Barron MD on 04/12; All test results are final unless otherwise noted. -[facility] Ordered by Maya Barron MD on 02/25/2020 Collected: 02/25/2020 Reported: 02/28/2020 15:53 C trach rRNA XXX Ql ТАТЬЯНА+probe See Note (NOT DETECTED) None Note: NOT DETECTEDNOT DETECTEDLNOT DETEC TEDNOT [id number] DETECTEDResponsible Observer: C.Trach RNA Chlamydia trachomatis DNA-ТАТЬЯНА [id number] 913.9900 ([employer]) N gonorrhoea rRNA XXX Ql ТАТЬЯНА+probe See Note (NOT DETECTED) None Note: NOT DETECTEDNOT DETECTEDLNOT DETEC TEDNOT [id number] DETECTEDResponsible Observer: GC RNA Neisseria gonorrhoeae DNA -ТАТЬЯНА [id number] 913.9905 ([employer]) Chlamydia/GC DNA Note SEE NOTE None Note: The analytical performance charact eristics of thisassay, when used to test SurePath(TM) specimens have beendetermined by [email or web address]. The modifications havenot been cleared or approved by the FDA. This assay hasbeen validated pursuant to the CLIA regulations and isused for clinical purposes.For additional information, please refer tohttps://education.aCommerce.Kudarom/faq/CJZ209(This link is being provided for information/educational purposes only.)THIS TEST WAS PERFORMED AT:[address] [address]CLAUDY ONEILLesponsible Observer: GC/Chlam Note Chlamydia/GC DNA Note [id number] 913.9907 (A) NOTES See Note None Note: Source Of Specimen: URINE Reviewed by Maya Barron MD on 02/28; All test results are final unless otherwise noted. Reported Physicians [facility] Ordered by Maya Barron MD on 02/25/2020 Collected: 02/25/2020 Reported: 02/28/2020 15:54 Reported Physicians See Note None Note: Reported Physicians:Ordering: Maya AlvarengaAttending: Maya Barron Reviewed by Maya Barron MD on 02/28; All test results are final unless otherwise noted. Urine culture-[facility] Ordered by Maya Barron MD on 02/25/2020 Collected: 02/25/2020 Reported: 02/26/2020 13:38 Urine culture result No growth None Reviewed by Maya Barron MD on 02/27; All test results are final unless otherwise noted. Reported Physicians [facility] Ordered by Maya Barron MD on 02/25/2020 Collected: 02/25/2020 Reported: 02/26/2020 13:39 Reported Physicians See Note None Note: Reported Physicians:Ordering: Bia Alvarenga: Maya Barron Reviewed by Maya Barron MD on 02/27; All test results are final unless otherwise noted. Test Office Lab Ordered by Maya Barron MD on 02/25/2020 [address] [place], [address] Specimen Source: Urine Collected: 02/25/2020 Reporte d: 02/25/2020 11:15 tel:[phone] Urine HCG neg (negative) N (Normal) Reviewed by Maya Barron MD on 02/24; All test results are final unless otherwise noted. Urinalysis w/out microscopy Office Lab Ordered by Maya Barron MD on 02/25/2020 [address] [place], [address] Specimen Source: Urine Collected: 02/25/2020 Reporte d: 02/25/2020 11:02 tel:[phone] bilirubin neg (neg) N (Normal) blood neg [...] otherwise noted. UA W/ CULTURE IF ABNORMAL [facility] Ordered by Maya Barron MD on 01/29/2020 Collected: 01/29/2020 Reported: 01/29/2020 00:22 Urobilinogen Ur Ql See Note (0.2-1 EU/dl) None Note: 1 EU/dl1 EU/dlL1 EU/dl1 EU/cyS1323 1229108 EU/dlResponsible Observer: UROBILINOGEN UROBILINOGEN 300.4500 (C) RBC # Ur Strip NEGATIVE (NEGATIVE) None Note: Responsible Observer: BLOOD BLOOD 300.4652 (C) Prot Ur Ql Strip See Note (NEGATIVE) None Note: NEGATIVENEGATIVELNEGATIVENEGATIVEL [id number] Observer: PROTEIN PROTEIN 300.3750 (C) Ketones Ur Ql Strip See Note (NEGATIVE) None Note: 15 mg/dL15 mg/dLL15 mg/dL15 mg/dLL 066082389851 mg/dLResponsible Observer: KETONE KETONE 300.3900 (C) Bilirub Ur Ql Strip.auto See Note (NEGATIVE) None Note: NEGATIVENEGATIVELNEGATIVENEGATIVEL [id number] Observer: BILIRUBIN BILIRUBIN 300.4550 (C) Glucose Ur Strip.auto-mCnc NEGATIVE (NEGATIVE) None Note: Responsible Observer: GLUCOSE GLUC OSE 300.3850 (C) Appearance Ur See Note (CLEAR) None Note: CLEARCLEARLCLEARCLEARLCLEARRespons ible Observer: APPEARANCE APPEARANCE 300.3400 (A) Color Ur See Note None Note: YELLOWYELLOWLYELLOWYELLOWLYELLOWRe sponsible Observer: COLOR COLOR 300.3330 (A) Leukocyte esterase Ur Ql Strip See Note (NEGATIVE) None Note: NEGATIVENEGATIVELNEGATIVENEGATIVEL [id number] Observer: LEUKOCYTES LEUKOCYTES 300.3576 (C) Nitrite Ur Ql Strip See Note (NEGATIVE) None Note: NEGATIVENEGATIVELNEGATIVENEGATIVEL [id number] Observer: NITRITE NITRITE 300.3652 (B) pH Ur [...] are final unless otherwise noted. Reported Physicians [facility] Ordered by Maya Barron MD on 01/29/2020 Collected: 01/29/2020 Reported: 01/29/2020 00:22 Reported Physicians See Note None Note: Reported Physicians:Ordering: Yoli NapolesAttending: Charles Silva To: Maya Barron Reviewed by Maya Barron MD on 01/30; All test results are final unless otherwise noted. BHCG,SERUM QUALITATIVE [facility] Ordered by Maya Barron MD [...] are final unless otherwise noted. Reported Physicians [facility] Ordered by Maya Barron MD on 01/28/2020 Collected: 01/28/2020 Reported: 01/28/2020 22:58 Reported Physicians See Note None Note: Reported Physicians:Ordering: Yoli NapolesAttending: Charles Silva To: Maya Barron Reviewed by Maya Barron MD on 01/30; All test results are final unless otherwise noted. CBC W AUTO DIFF [facility] Ordered by Maya Barron MD [...] Auto See Note (0-2) N (Normal) Note: 0.30.3L0.30.1J50306992344.3Respons ible Observer: IG% IG% 100.1375 (B) Hct [...] test results are final unless otherwise noted. [facility] Ordered by Maya Barron [...] are final unless otherwise noted. Reported Physicians [facility] Ordered by Maya Barron MD on 01/28/2020 Collected: 01/28/2020 Reported: 01/28/2020 23:00 Reported Physicians See Note None Note: Reported Physicians:Ordering: Cliff Napolesending: Charles Silva To: Maya Barron Reviewed by Maya Barron MD on 01/30; All test results are final unless otherwise noted. UA W/ CULTURE IF ABNORMAL [facility] Ordered by Maya Barron MD on 12/12/2019 Collected: 12/12/2019 Reported: 12/12/2019 11:22 Urobilinogen Ur Ql See Note (0.2-1 EU/dl) None Note: 1 EU/dl1 EU/dlL1 EU/dl1 EU/diM9289 0321018 EU/dlResponsible Observer: UROBILINOGEN UROBILINOGEN 300.4500 (C) RBC # Ur Strip NEGATIVE (NEGATIVE) None Note: Responsible Observer: BLOOD BLOOD 300.4652 (C) Prot Ur Ql Strip See Note (NEGATIVE) None Note: NEGATIVENEGATIVELNEGATIVENEGATIVEL [id number] Observer: PROTEIN PROTEIN 300.3750 (C) Ketones Ur Ql Strip See Note (NEGATIVE) None Note: 15 mg/dL15 mg/dLL15 mg/dL15 mg/dLL 790705832057 mg/dLResponsible Observer: KETONE KETONE 300.3900 (C) Bilirub Ur Ql Strip.auto See Note (NEGATIVE) None Note: NEGATIVENEGATIVELNEGATIVENEGATIVEL 1312722387XWPWPIGWNccvphevrly Observer: BILIRUBIN BILIRUBIN 300.4550 (C) Glucose Ur Strip.auto-mCnc NEGATIVE (NEGATIVE) None Note: Responsible Observer: GLUCOSE GLUC OSE 300.3850 (C) Appearance Ur See Note (CLEAR) A (Abnormal) Note: CLOUDYCLOUDYLCLOUDYCLOUDYLCLOUDYRe sponsible Observer: APPEARANCE APPEARANCE 300.3400 (A) Color Ur See Note None Note: YELLOWYELLOWLYELLOWYELLOWLYELLOWRe sponsible Observer: COLOR COLOR 300.3330 (A) Leukocyte esterase Ur Ql Strip See Note (NEGATIVE) None Note: NEGATIVENEGATIVELNEGATIVENEGATIVEL [id number] Observer: LEUKOCYTES LEUKOCYTES 300.3576 (C) Nitrite Ur Ql Strip See Note (NEGATIVE) None Note: NEGATIVENEGATIVELNEGATIVENEGATIVEL 6405420468TRRFSIMXIwbqhmhfzsv Observer: NITRITE NITRITE 300.3652 (B) pH Ur [...] are final unless otherwise noted. Reported Physicians [facility] Ordered by Maya Barron MD on 12/12/2019 Collected: 12/12/2019 Reported: 12/12/2019 11:23 Reported Physicians See Note None Note: Reported Physicians:Ordering: Maya AlvarengaAttending: Maya Barron Reviewed by Maya Barron MD on 12/12; All test results are final unless otherwise noted. CBC W AUTO DIFF [facility] Ordered by Maya Barron MD [...] Auto See Note (0-2) N (Normal) Note: 0.30.3L0.30.1E18467154607.3Respons ible Observer: IG% IG% 100.1375 (B) Hct [...] test results are final unless otherwise noted. [facility] Ordered by Maya Barron [...] are final unless otherwise noted. Reported Physicians [facility] Ordered by Maya Barron MD on 12/12/2019 Collected: 12/12/2019 Reported: 12/12/2019 11:58 Reported Physicians See Note None Note: Reported Physicians:Ordering: Cara Alvarengaending: Maya Barron Reviewed by Maya Barron MD on 12/12; All test results are final unless otherwise noted. Gastrointestinal Panel PCR [facility] Ordered by Maya Barron MD [...] OTHER EXPERTS. (E.G. GUIDELINES/POLICYSTATEMENTS PUBLISHED BY THE [place] [employer]OR THE SOCIETY FOR HEALTHCARE EPIDEMIOLOGY OF [place] ANDTHE INFECTIOUS DISEASE SOCIETY OF [place]).CLOC. difficile toxin [id number]. difficile toxin detected Reviewed by Maya Barron MD on 12/12; All test results are final unless otherwise noted. Reported Physicians [facility] Ordered by Maya Barron MD on 12/12/2019 Collected: 12/12/2019 Reported: 12/12/2019 14:17 Reported Physicians See Note None Note: Reported Physicians:Ordering: Maya AlvarengaAttending: Maya Barron Reviewed by Maya Barron MD on 12/12; All test results are final unless otherwise noted. CBC W AUTO DIFF [facility] Ordered by Maya Barron MD [...] Auto See Note (0-2) N (Normal) Note: 0.00.0L0.00.9P64975878445.0Respons ible Observer: IG% IG% 100.1375 (B) Hct [...] test results are final unless otherwise noted. [facility] Ordered by Maya Barron [...] unless otherwise noted. Prothrombin Time & INR [facility] Ordered by Maya Barron MD [...] are final unless otherwise noted. Reported Physicians [facility] Ordered by Maya Barron MD on 12/07/2019 Collected: 12/07/2019 Reported: 12/07/2019 17:21 Reported Physicians See Note None Note: Reported Physicians:Ordering: Aj Snowending: Jos Castellanos To: Maya Barron Reviewed by Maya Barron MD on 12/09; All test results are final unless otherwise noted. Urinalysis w/out microscopy Office Lab Ordered by Maya Barron MD on 11/22/[address] [place] [address], [phone] Specimen Source: Urine Collected: 11/22/2019 Reporte d: 11/22/2019 15:28 tel:[phone] bilirubin neg (neg) N (Normal) blood neg [...] Lab Ordered by Maya Barron MD on [address] [place] [address], [phone] Specimen Source: Urine Collected: Reported: 2020 11:41 tel:[phone] bilirubin NEGATIVE (neg) N (Normal) blood NEGATIVE [...] Ordered by Maya Barron MD on 12/27/[address] [place] [address], [phone] Specimen Source: Urine Collected: Reported: 2019 13:46 [...] Procedures and Surgical History Includes: Procedures from 11/22/2019 through 11/21/2020 Procedures Code Diagnosis Performing Provider Service Location Service Date REVISIT- office visit KAYLEIGH 20 weeks gestatio n of Maya Barron MD [facility], [facility] 11/14/2020 no charge procedure NC Palpitations Maya Barron MD [facility], [facility] 11/03/2020 no charge procedure NC Palpitations Maya Barron MD [facility], [facility] 10/31/2020 REVISIT- office visit KAYLEIGH 18 weeks gestatio n of Maya Barron MD [facility], [facility] 10/31/2020 REVISIT- office visit KAYLEIGH 17 weeks gestatio n of Maya Barron MD [facility], [facility] 10/24/2020 no charge procedure NC Palpitations Maya Barron MD [facility], [facility] 10/17/2020 REVISIT- office visit KAYLEIGH 16 weeks gestatio n of Maya Barron MD [facility], [facility] 10/17/2020 Holter Monitor, Physician review & interpretation only 95255 Palpitations Michel Villalba MD [facility] Outpt 10/11/2020 REVISIT- office visit KAYLEIGH 15 weeks gestatio n of Maya Barron MD [facility], [facility] 10/11/2020 REVISIT- office visit KAYLEIGH 13 weeks gestatio n of Maya Barron MD [facility], [facility] 09/27/2020 REVISIT- office visit KAYLEIGH 12 weeks gestatio n of Maya Barron MD [facility], [facility] 09/19/2020 EKG- Electrocardiogram/12 lead 39708 Chest pain, unspe cified Cat Betzaida Brenda [facility], [facility] 09/11/2020 REVISIT- office visit KAYLEIGH 10 weeks gestatio n of Cat Gutierrez [facility], [facility] 09/05/2020 REVISIT- office visit KAYLEIGH 8 weeks gestation of Maya Barron MD [facility], [facility] 08/22/2020 Urinalysis w/o Microscopy (Distinct Seperate service-same da y) 71521 Frequency of micturition- Urinary Frequency Maya Barron MD [facility], [facility] 08/15/2020 RAPID STREP 83787 Acute pharyngitis, unspecified Maya Barron MD [facility], [facility] 08/15/2020 Initial Obstetrical Care Office Visit OB Le ss than 8 weeks gestation of Cat Gutierrez [facility], [facility] 021 Urinalysis w/o Microscopy 53344 Frequency of micturiti on- Urinary Frequency Maya Barron MD [facility], [facility] 07/19/2020 REVISIT- office visit KAYLEIGH Threatened Alicja Barron MD [facility], [facility] 05/26/2020 NO CHARGE- Nurse visit- OB establish [employer] Thr eatened , state, incidental Maya Barron MD [facility], [facility] 020 General Health Panel( CMP, CBC, TSH) 37461 Dysmenorrhe a, unspecified Maya Barron MD [facility], [facility] 04/10/2020 Venipuncture (routine) 84437 Dysmenorrhea, unspecified Mariela Barron MD [facility], [facility] 04/10/2020 Brief Emotional Behavior Assessment ( add -59 mod) 54247 Screening for Mental Health/Behavioral Disorder, Unspecified Maya Barron MD [facility], [facility] 04/10/2020 Urine Test 22757 Pelvic and perineal pain, Frequency of micturition- Urinary Frequency Maya Barron MD [facility], [facility] 02/25/2020 Urinalysis w/o Microscopy 35762 Frequency of micturiti on- Urinary Frequency Maya Barron MD [facility], [facility] 02/25/2020 Urine Test 34507 Amenorrhea, unspecified Maya Barron MD [facility], [facility] 12/27/2019 Urinalysis w/o Microscopy 08661 Right upper quadrant pain Trinity Barron MD [facility], [facility] 11/22/2019 Surgical History Last Updated No surgical / [...] 12:00AM Act laya Encounters Includes: Encounters from 11/22/2019 through 11/21/2020 Encounter Provider Location Date Check-In Time Check-Out Time D iagnosis Chronic Care Mgt - Office Visit Maya Barron MD [facility], [facility] 11/21/2020 2:10PM 2:35PM Fracture of Fift h Cervical Vertebral Body, History of Psychiatric Disorders, Reactive Airway Disease REVISIT- Routine (OB) Visit Maya Barron MD [facility], [facility] 11/21/2020 11:33AM 12:01PM REVISIT- Routine (OB) Visit Maya Barron MD [facility], [facility] 11/14/2020 9:55AM 10:36AM REVISIT- Routine (OB) Visit Maya Barron MD [facility], [facility] 11/07/2020 11:42AM 12:02PM OB- ILL VISIT Maya Barron MD [facility], [facility] 11/03/2020 3:45PM 4:29PM , Generalized Anxie ty Disorder, Panic Disorder, Chest Pain Chronic Care Mgt - Office Visit Maya Barron MD [facility], [facility] 11/03/2020 2:37PM 3:38PM Chronic Care Mgt - Office Visit Maya Barron MD [facility], [facility] 10/31/2020 3:23PM 3:24PM Fracture of Fift h Cervical Vertebral Body, History of Psychiatric Disorders, Reactive Airway Disease REVISIT- Routine (OB) Visit Maya Barron MD [facility], [facility] 10/31/2020 9:54AM 10:24AM Chronic Care Mgt - Office Visit Maya Barron MD [facility], [facility] 10/24/2020 2:16PM 11:59PM REVISIT- Routine (OB) Visit Maya Barron MD [facility], [facility] 10/24/2020 10:00AM 10:47AM REVISIT- Routine (OB) Visit Maya Barron MD [facility], [facility] 10/17/2020 11:24AM 12:12PM Chronic Care Mgt - Office Visit Maya Barron MD [facility], [facility] 10/17/2020 11:25AM 12:11PM Fracture of Fift h Cervical Vertebral Body, History of Psychiatric Disorders, Reactive Airway Disease REVISIT- Routine (OB) Visit Maya Barron MD [facility], [facility] 10/11/2020 9:44AM 10:15AM OB- ILL VISIT Maya Barron MD [facility], [facility] 10/04/2020 2:12PM 2:31PM Presyncope Syndrome, Tachyca rdia, Palpitations, Difficulty Breathing (Dyspnea), Weeks of Gestation - 13 REVISIT- Routine (OB) Visit Maya Barron MD [facility], [facility] 09/27/2020 1:36PM 1:59PM telephone conversation Michel Villalba MD 09/19/2020 9:43PM 09/19/2020 11:59PM Atypical Chest Pain REVISIT- Routine (OB) Visit Maya Barron MD [facility], [facility] 09/19/2020 9:48AM 10:14AM REVISIT- Routine (OB) Visit Cat Gutierrez [facility], [facility] 09/11/2020 3:22PM 4:16PM REVISIT- Routine (OB) Visit Cat Gutierrez [facility], [facility] 09/05/2020 9:37AM 10:00AM TCMNV phone call- NO CHARGE Cat Gutierrez [facility] 09/04/2020 09/05/2020 4:54PM 09/05/2020 11:59PM [Patient Encounter] Cat Gutierrez [facility] 08/31/2020 021 2:21PM 08/22/2020 11:59PM telephone conversation Michel Villalba MD 08/2808/22/2020 11:00AM 08/22/2020 11:59PM REVISIT- Routine (OB) Visit Maya Barron MD [facility], [facility] 08/22/2020 1:56PM 2:19PM sick visit Maya Barron MD [facility], [facility] 0 08/15/2020 9:36AM 10:12AM Upper Respiratory Infection Acute, Pollakiuria Obstetrics/ first visit Cat Gutierrez [facility], [facility] 08/09/2020 9:22AM 10:56AM followup Cat Gutierrez [facility], [facility] 0 08/02/2020 10:18AM 11:42AM Generalized Anxiety Disorder , Early Stage, Abdominal Pain telephone conversation Michel Villalba MD 07 1407/26/2020 7:59AM 07/26/2020 11:59PM [Patient Encounter] Cat Gutierrez RPA 07/28/2020 021 2:20PM 07/26/2020 11:59PM followup Maya Barron MD [facility] 0 07/26/2020 10:39AM 11:02AM , Generalized Anxie ty Disorder sick visit Bandar Cleveland PA-C [facility] 3:36PM 4:30PM Pyrexia followup Maya Barron MD [facility] 0 07/19/2020 10:52AM 11:30AM , Generalized Anxie ty Disorder, Pollakiuria followup Maya Barron MD [facility] 1 09/11/2019 10:43AM 11:14AM Atypical Chest Pain, Adjustm ent Disorder followup Maya Barron MD [facility] 1 08/07/2019 10:43AM 10:59AM Missed followup Maya Barron MD [facility] 05/26 1:45PM 2:11PM with Threatened Problem visit - not contagious Maya Barron MD [facility] 05/24/2020 11:13AM 12:00PM with T hreatened [Patient Encounter] Maya Barron MD 05/24/2020 020 10:17AM 04/19/2020 11:59PM followup Maya Barron MD [facility] 1 11:51AM 12:08PM ANNUAL PE-followup Maya Barron MD [facility] 04/10/2020 8:42AM 9:13AM Routine History and Physical Adult (18 - 64 Yrs), Dysmenorrhea sick visit Maya Barron MD [facility] 0 03/06/2020 3:32PM 3:42PM Sinusitis sick visit Maya Barron MD [facility] 0 02/25/2020 10:46AM 11:12AM Pollakiuria, Female Pelvic P ain followup Maya Barron MD [facility] 01/31 2:25PM 2:51PM Back Strain followup Maya Barron MD [facility] 12/26 1:25PM 1:42PM Amenorrhea, Clostridium Difficile sick visit Maya Barron MD [facility] 0 12/07/2019 4:00PM 4:17PM Abdominal Pain sick visit Maya Barron MD [facility] 0 11/22/2019 3:13PM 3:37PM Esophageal Reflux, Abdominal Pain, Generalized Anxiety Disorder Insurance Includes: Active Insurance Policies Plan Name Member ID Group # Subscriber Relationship Effective Da [facility] 1 - MANAGED MEDICAID [facility] [id number] Georgiana Nguyen 2020 - Unknown Advance Directives Includes: Current Advance DirectivesNo Advance Directives Recorded Health Concerns Includes: Active Health ConcernsNo Active Health Concerns Recorded Goals Includes: Active GoalsNo Active Goals Recorded Interventions Includes: Interventions for active GoalsNo Interventions Recorded Evaluations & Outcomes Includes: Evaluations & Outcomes for active GoalsNo Outcomes Recorded
--- OUTSIDE RECORDS SUMMARY | 2021-04-29 17:01 | CCD ---
Author Author [facility] Organization [facility] Address [address] [place] [address] Phone Care Team Providers Care Associate Software Development Engineer Name Role Phone Anderson GILL, Maya Duke PP [phone] Kimberly White DPM Unavailable Unavailable Reason for [...] Provider REVISIT- Routine (OB) [facility] 12/05/2020 11:30AM [place] SOLE Ramirez MD REVISIT- Routine (OB) Visit 12/12/2020 11:45AM [facility] SOLE Chopra MD REVISIT- Routine (OB) Visit 12/19/2020 10:00AM [facility] SOLE Chopra MD REVISIT- Routine (OB) Visit 12/26/2020 10:00AM [facility], SOLE Barron MD REVISIT- Routine (OB) Visit 01/02/2021 10:00AM [facility], SOLE Barron MD REVISIT- Routine (OB) Visit 01/09/2021 10:00AM [facility], SOLE Barron MD REVISIT- Routine (OB) Visit 01/16/2021 10:00AM [facility], SOLE Barron MD REVISIT- Routine (OB) Visit 01/23/2021 10:00AM [facility], SOLE Barron MD REVISIT- Routine (OB) Visit 01/30/2021 10:00AM [facility], SOLE Barron MD REVISIT- Routine (OB) Visit 02/06/2021 10:00AM [facility], SOLE Barron MD REVISIT- Routine (OB) Visit 02/13/2021 10:00AM [facility], SOLE Barron MD REVISIT- Routine (OB) Visit 02/20/2021 11:45AM [facility], SOLE Barron MD REVISIT- Routine (OB) Visit 02/27/2021 10:00AM [facility], SOLE Barron MD REVISIT- Routine (OB) Visit 03/06/2021 10:00AM [facility], SOLE Barron MD REVISIT- Routine (OB) Visit 03/13/2021 10:00AM [facility], SOLE Barron MD REVISIT- Routine (OB) Visit 03/20/2021 10:00AM [facility], SOLE Barron MD REVISIT- Routine (OB) Visit 03/27/2021 10:00AM [facility], SOLE Barron MD Findings Encounter Date Community [...] or concerns sick visit with Cat Gutierrez [facility] 10/30/2018 Assessments Includes: Assessments for all patient encounters Findings Encounter Date Chest pain s/p echo, holter monitor, mu [...] history and physical (18 - 63 yrs) 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 [facility], NMD on health maintenance [Encounter for general adult medical examination with abnormal findings] ANNUAL PE-followup exam/30 with Maya Barron MD 04/07/2019 Vaginal candidiasis sick visit with Cat [facility] 02/11 Pharyngitis urgent visit with [facility] [place] PA-C 2018 Sprained ribs ; left sick visit with [facility] Strain of muscle and tendon of front wall of thorax si ck visit with [facility] 10/30/2018 Fracture of fifth cervical vertebral body No Fault with [facility] 03/04/2018 Late effects of accident No Fault with [facility] 0 03/04/2018 Instructions Instructions not [...] Solution 09/05/2020 - 11/04/2020 Provider: Cat Gutierrez [facility] Diagnosis: Other asthma- reacti ve airway disease 2 puffs q4hr prn Monistat 7 Combo Pack Chava 100 & 2 MG-% (9GM) Vaginal K it 08/31/2020 - 09/07/2020 Provider: Cat Gutierrez [facility] Diagnosis: as directed - Insert 1 [...] 08/10/2020 - 08/17/2020 Pro vider: Cat Gutierrez [facility] Diagnosis: 1 PO BID Sertraline HCl 50 MG Oral Tablet 08/02/2020 - 08/22/2020 Pro vider: Cat Gutierrez [facility] Diagnosis: as directed - Take 1/2 [...] from 11/22/2019 through 11/21/2020 Cepheid SARS/FLU/RSV RT-PCR [facility] Ordered by Maya Barron MD on [...] by FDA under an EUA for use byRazor Insightsigrkdnadmoxg43583-1CANL-vvs CoV RNA Resp Ql ТАТЬЯНА+tzcekHUDHKGXZWRT-OVE-5 NOT [id number]-EWB-9 NOT UYWFWXRS13449-7YFIHV RNA Resp Ql ТАТЬЯНА+probeLNNFLUAInfluenza A Not Det [id number] A Not Ydiwtrdr23407-1GLZOP RNA Resp Ql ТАТЬЯНА+probeLNNINBInfluenza B Not [id number] B Not Xgakbtlf84642- 2RSV RNA Resp Ql ТАТЬЯНА+probeLNNRSVRSV Not [id number] Not Detected Reviewed by Maya Barron MD on 11/20; All test results are final unless otherwise noted. Reported Physicians [facility] Ordered by Maya Barron MD on 11/18/2020 Collected: 11/18/2020 Reported: 11/18/2020 23:58 Reported Physicians See Note None Note: Reported Physicians:Ordering: Aj Snowending: Jos Castellanos To: Maya Barron Reviewed by Maya Barron MD on 11/20; All test results are final unless otherwise noted. URINE DRUG SCREEN -([facility]) [facility] Ordered by Maya Barron MD on 11/17/2020 Collected: 11/17/2020 Reported: 11/17/2020 14:19 PCP Ur Ql Scn>25 ng/mL See Note (Cutoff 25) None Note: [id number] E@Reenter manual test result: NEGATIVE@by Claudia Tello at 11/17/20 1414.Responsible Observer: PCP Urine Phencyclidine (PCP) Scrn 400.5120 (A) THC Ur Ql Scn>50 ng/mL See Note (Cutoff 50) None Note: [id number] EResponsible Observer: Marijuana (THC) Ur Marijuana (THC) Screen 400.5110 (A) Benzodiaz Ur Ql Scn See Note (Cutoff 150) None Note: [id number] E@Reenter manual test result: NEGATIVE@by Claudia Tello at 11/17/20 1418.Responsible Observer: Benzodiazepines Urine Benzodiazepines Screen 400.5170 (A) Opiates Ur Ql Scn See Note (Cutoff 100) None Note: [id number] E@Reenter manual test result: NEGATIVE@by Claudia Tello at 11/17/20 1418.Responsible Observer: Opiates Urine Opiates Screen 400.5150 (A) Tricyclics Ur Ql Scn See Note (Cutoff 300) None Note: [id number] E@Reenter manual test result: NEGATIVE@by Claudia Tello at 11/17/20 1418.Responsible Observer: TCA Ur Tricyclic Antidepressants 400.5180 (A) Cocaine Ur Ql Scn See Note (Cutoff 150) None Note: [id number] E@Reenter manual test result: NEGATIVE@by Claudia Tello at 11/17/20 1417.Responsible Observer: Cocaine Urine Cocaine Screen 400.5130 (A) Propoxyph+Nor Ur Ql Scn See Note (Cutoff 300) None Note: [id number] E@Reenter manual test result: NEGATIVE@by Claudia Tello at 11/17/20 1418.Responsible Observer: Propoxyphene Urine Propoxyphene Screen 400.5220 (A) Methadone Ur Ql Scn See Note (Cutoff 200) None Note: [id number] E@Reenter manual test result: NEGATIVE@by Claudia Tello at 11/17/20 1418.Responsible Observer: Methadone Urine Methadone Screen 400.5190 (A) Methamphet Ur Ql Scn See Note (Cutoff 500) None Note: [id number] E@Reenter manual test result: NEGATIVE@by Claudia Tello at 11/17/20 1417.Responsible Observer: Methamphetamine Urine Methamphetamines Screen 400.5140 (A) oxyCODONE Ur Ql Scn See Note (Cutoff 100) None Note: [id number] E@Reenter manual test result: NEGATIVE@by Claudia Tello at 11/17/20 1418.Responsible Observer: Oxycodone Urine Oxycodone Screen 400.5210 (A) Buprenorphine Ur Ql See Note (Cutoff 10) None Note: [id number] E@Reenter manual test result: NEGATIVE@by Claudia Tello at 11/17/20 1419.Responsible Observer: Buprenorphine Urine Buprenorphine Screen 400.5230 (A) Amphetamines Ur Ql Scn>500 ng/mL See Note (Cutoff 500) None Note: [id number] E@Reenter manual test result: NEGATIVE@by Claudia Tello at 11/17/20 1418.Responsible Observer: Amphetamines Urine Amphetamines Screen 400.5160 (A) Barbiturates Ur Ql Scn>200 ng/mL See Note (Cutoff 200) None Note: [id number] E@Reenter manual test result: NEGATIVE@by Claudia Tello at 11/17/20 1418.Responsible Observer: Barbiturates Urine Barbiturates 400.5200 (A) Reviewed by Maya Barron MD on 11/20; All test results are final unless otherwise noted. IRON [facility] Ordered by Maya Barron MD on 11/17/2020 Collected: 11/17/2020 Reported: 11/17/2020 14:34 Iron SerPl-mCnc 39 (50-170) L (Low) Note: Iron values may be falsely elevate d in serum samples frompatients treated with anticoagulants (e.g., hemodialysispatients)Responsible Observer: Iron Level Iron Level 400.9002 (A) Reviewed by Maya Barron MD on 11/20; All test results are final unless otherwise noted. Reported Physicians [facility] Ordered by Maya Barron MD on 11/17/2020 Collected: 11/17/2020 Reported: 11/17/2020 14:34 Reported Physicians See Note None Note: Reported Physicians:Ordering: Maya AlvarengaAttending: Maya Barron Reviewed by Maya Barron MD on 11/20; All test results are final unless otherwise noted. CBC W AUTO DIFF [facility] Ordered by Maya Barron MD on [...] Auto See Note (0-2) N (Normal) Note: 0.60.1V77611589460.6Responsible Ob senior sql server database developer: IG% IG% 100.1375 (B) Hct VFr [...] results are final unless otherwise noted. HA1C [facility] Ordered by Maya Barron MD on [...] blood glucose control.* High risk of developing color laboratory technician complications such asretinopathy, nephropathy, neuropathy, cardiopathy, etc. [...] test results are final unless otherwise noted. [facility] Ordered by Maya [...] final unless otherwise noted. Vitamin D 25-OH [facility] Ordered by Maya Barron MD on [...] VIT D, (D2,D3), LC/MS/MS is recommended: ordercode 33872 (patients >2yrs).See Note 1Note 1For additional information, please refer tohttp://[email or web address].BABADU/faq/LMH370(This link is being provided for informational/educational purposes only.)THIS TEST WAS PERFORMED AT:[facility] [address]CLAUDY ONEILLesponsible Observer: Vitamin D 25-OH Vitamin D 25-Hydroxy [id number] 914.1810 ([place]) Reviewed by Maya Barron MD on 11/20; All test results are final unless otherwise noted. Reported Physicians [facility] Ordered by Maya Barron MD on 11/17/2020 Collected: 11/17/2020 Reported: 11/18/2020 08:17 Reported Physicians See Note None Note: Reported Physicians:Ordering: Maya AlvarengaAttending: Maya Barron Reviewed by Maya Barron MD on 11/20; All test results are final unless otherwise noted. FREE T4 (LAB) [facility] Ordered by Maya Barron MD on 11/17/2020 Collected: 11/17/2020 Reported: 11/17/2020 14:34 T4 Free SerPl-mCnc 0.78 NanoGramsPerDeciLiter_[Mass_Concentration_Units] (0.89-1.76) L (Low) Note: Responsible Observer: FREE T4 Free Thyroxine 600.7005 (D) Reviewed by Maya Barron MD on 11/20; All test results are final unless otherwise noted. Reported Physicians [facility] Ordered by Maya Barron MD on 11/17/2020 Collected: 11/17/2020 Reported: 11/17/2020 14:34 Reported Physicians See Note None Note: Reported Physicians:Ordering: Maya AlvarengaAttending: Maya Barron Reviewed by Maya Barron MD on 11/20; All test results are final unless otherwise noted. TSH [facility] Ordered by Maya Barron MD on 11/17/2020 Collected: 11/17/2020 Reported: 11/17/2020 14:34 TSH SerPl DL<=0.005 mIU/L-aCnc 1.38 MicroInternationalUnitsPerMilliLiter_[Arbitrary_Con (0.35-5. 50) N (Normal) Note: Responsible Observer: TSH TSH 600 .7055 (D) Reviewed by Maya Barron MD on 11/20; All test results are final unless otherwise noted. Reported Physicians [facility] Ordered by Maya Barron MD on 11/17/2020 Collected: 11/17/2020 Reported: 11/17/2020 14:34 Reported Physicians See Note None Note: Reported Physicians:Ordering: Maya AlvarengaAttending: Maya Barron Reviewed by Maya Barron MD on 11/20; All test results are final unless otherwise noted. BHCG Quantitative [facility] Ordered by Maya Barron MD on 10/23/2020 Collected: 10/23/2020 Reported: 10/23/2020 01:21 B-HCG SerPl-aCnc 98786 MilliInternationalUnitsPerMilliLiter_[Arbitrary_Con (0-10) H (High) Note: @Instrument will [...] are final unless otherwise noted. Reported Physicians [facility] Ordered by Maya Barron MD on 10/23/2020 Collected: 10/23/2020 Reported: 10/23/2020 01:21 Reported Physicians See Note None Note: Reported Physicians:Ordering: Cliff Napolesending: Charles Silva To: Maya Barron Reviewed by Maya Barron MD on 10/23; All test results are final unless otherwise noted. CBC W AUTO DIFF [facility] Ordered by Maya Barron MD on [...] Auto See Note (0-2) N (Normal) Note: 0.30.0R43920174770.3Responsible Ob senior sql server database developer: IG% IG% 100.1375 (B) Hct VFr [...] test results are final unless otherwise noted. [facility] Ordered by Maya [...] results are final unless otherwise noted. D-DIMER [facility] Ordered by Maya Barron MD on [...] are final unless otherwise noted. Reported Physicians [facility] Ordered by Maya Barron MD on 10/23/2020 Collected: 10/23/2020 Reported: 10/23/2020 01:22 Reported Physicians See Note None Note: Reported Physicians:Ordering: Yoli NapolesAttending: Charles Silva To: Maya Barron Reviewed by Maya Barron MD on 10/23; All test results are final unless otherwise noted. TROPONIN [facility] Ordered by Maya Barron MD on [...] are final unless otherwise noted. Reported Physicians [facility] Ordered by Maya Barron MD on 10/23/2020 Collected: 10/23/2020 Reported: 10/23/2020 01:03 Reported Physicians See Note None Note: Reported Physicians:Ordering: Yoli NapolesAttending: Charles Silva To: Maya Barron Reviewed by Maya Barron MD on 10/23; All test results are final unless otherwise noted. FREE T4 (LAB) [facility] Ordered by Maya Barron MD on 10/21/2020 Collected: 10/21/2020 Reported: 10/21/2020 15:17 T4 Free SerPl-mCnc 0.97 NanoGramsPerDeciLiter_[Mass_Concentration_Units] (0.89-1.76) N (Normal) Note: Responsible Observer: FREE T4 Free Thyroxine 600.7005 (D) Reviewed by Maya Barron MD on 10/23; All test results are final unless otherwise noted. Reported Physicians [facility] Ordered by Maya Barron MD on 10/21/2020 Collected: 10/21/2020 Reported: 10/21/2020 15:17 Reported Physicians See Note None Note: Reported Physicians:Ordering: Choco KaurAttending: Tramaine PardoothyCopyifan To: Maya Barron Reviewed by Maya Barron MD on 10/23; All test results are final unless otherwise noted. TSH [facility] Ordered by Maya Barron MD on 10/21/2020 Collected: 10/21/2020 Reported: 10/21/2020 15:17 TSH SerPl DL<=0.005 mIU/L-aCnc 1.40 MicroInternationalUnitsPerMilliLiter_[Arbitrary_Con (0.35-5. 50) N (Normal) Note: Responsible Observer: TSH TSH 600 .7055 (D) Reviewed by Maya Barron MD on 10/23; All test results are final unless otherwise noted. Reported Physicians [facility] Ordered by Maya Barron MD on 10/21/2020 Collected: 10/21/2020 Reported: 10/21/2020 15:17 Reported Physicians See Note None Note: Reported Physicians:Ordering: Choco KaurAttending: Adam Pardo To: Maya Barron Reviewed by Maya Barron MD on 10/23; All test results are final unless otherwise noted. UA W/ CULTURE IF ABNORMAL [facility] Ordered by Maya Barron MD on 10/19/2020 Collected: 10/19/2020 Reported: 10/19/2020 16:31 Urobilinogen Ur Ql See Note (0.2-1 EU/dl) None Note: 0.2 EU/dl0.2 EU/[id number] E U/dlResponsible Observer: UROBILINOGEN UROBILINOGEN 300.4500 (C) RBC # Ur Strip NEGATIVE (NEGATIVE) None Note: Responsible Observer: BLOOD BLOOD 300.4652 (C) Prot Ur Ql Strip See Note (NEGATIVE) None Note: [id number] EResponsible Observer: PROTEIN PROTEIN 300.3750 (C) Ketones Ur Ql Strip See Note (NEGATIVE) None Note: [id number] EResponsible Observer: KETONE KETONE 300.3900 (C) Bilirub Ur Ql Strip.auto See Note (NEGATIVE) None Note: [id number] EResponsible Observer: BILIRUBIN BILIRUBIN 300.4550 (C) Glucose Ur Strip.auto-mCnc 100 mg/dl (NEGATIVE) None Note: Responsible Observer: GLUCOSE GLUC OSE 300.3850 (C) Appearance Ur See Note (CLEAR) None Note: CLEARCLEARLCLEARResponsible Observ er: APPEARANCE APPEARANCE 300.3400 (A) Color Ur See Note None Note: YELLOWYELLOWLYELLOWResponsible Obs erver: COLOR COLOR 300.3330 (A) Leukocyte esterase Ur Ql Strip See Note (NEGATIVE) None Note: [id number] EResponsible Observer: LEUKOCYTES LEUKOCYTES 300.3576 (C) Nitrite Ur Ql Strip See Note (NEGATIVE) None Note: [id number] EResponsible Observer: NITRITE NITRITE 300.3652 (B) pH [...] are final unless otherwise noted. Reported Physicians [facility] Ordered by Maya Barron MD on 10/19/2020 Collected: 10/19/2020 Reported: 10/19/2020 16:31 Reported Physicians See Note None Note: Reported Physicians:Ordering: Les Vanegas AAttending: Fady Raza To: Maya Barron Reviewed by Maya Barron MD on 10/20; All test results are final unless otherwise noted. URINE DRUG SCREEN -([facility]) [facility] Ordered by Maya Barron MD on 10/19/2020 Collected: 10/19/2020 Reported: 10/19/2020 16:40 PCP Ur Ql Scn>25 ng/mL See Note (Cutoff 25) None Note: [id number] E@Reenter manual test result: NEGATIVE@by Jia Lentz at 10/19/20 1639.Responsible Observer: PCP Urine Phencyclidine (PCP) Scrn 400.5120 (A) THC Ur Ql Scn>50 ng/mL See Note (Cutoff 50) None Note: [id number] EResponsible Observer: Marijuana (THC) Ur Marijuana (THC) Screen 400.5110 (A) Benzodiaz Ur Ql Scn See Note (Cutoff 150) None Note: [id number] E@Reenter manual test result: NEGATIVE@by Jia Lentz at 10/19/20 1640.Responsible Observer: Benzodiazepines Urine Benzodiazepines Screen 400.5170 (A) Opiates Ur Ql Scn See Note (Cutoff 100) None Note: [id number] E@Reenter manual test result: NEGATIVE@by Jia Lentz at 10/19/20 1640.Responsible Observer: Opiates Urine Opiates Screen 400.5150 (A) Tricyclics Ur Ql Scn See Note (Cutoff 300) None Note: [id number] E@Reenter manual test result: NEGATIVE@by Jia Lentz at 10/19/20 1640.Responsible Observer: TCA Ur Tricyclic Antidepressants 400.5180 (A) Cocaine Ur Ql Scn See Note (Cutoff 150) None Note: [id number] E@Reenter manual test result: NEGATIVE@by Jia Lentz at 10/19/20 1640.Responsible Observer: Cocaine Urine Cocaine Screen 400.5130 (A) Propoxyph+Nor Ur Ql Scn See Note (Cutoff 300) None Note: [id number] E@Reenter manual test result: NEGATIVE@by Jia Lentz at 10/19/20 1640.Responsible Observer: Propoxyphene Urine Propoxyphene Screen 400.5220 (A) Methadone Ur Ql Scn See Note (Cutoff 200) None Note: [id number] E@Reenter manual test result: NEGATIVE@by Jia Lentz at 10/19/20 1640.Responsible Observer: Methadone Urine Methadone Screen 400.5190 (A) Methamphet Ur Ql Scn See Note (Cutoff 500) None Note: [id number] E@Reenter manual test result: NEGATIVE@by Jia Lentz at 10/19/20 1640.Responsible Observer: Methamphetamine Urine Methamphetamines Screen 400.5140 (A) oxyCODONE Ur Ql Scn See Note (Cutoff 100) None Note: [id number] E@Reenter manual test result: NEGATIVE@by Jia Lentz at 10/19/20 1640.Responsible Observer: Oxycodone Urine Oxycodone Screen 400.5210 (A) Buprenorphine Ur Ql See Note (Cutoff 10) None Note: [id number] E@Reenter manual test result: NEGATIVE@by Jia Lentz at 10/19/20 1640.Responsible Observer: Buprenorphine Urine Buprenorphine Screen 400.5230 (A) Amphetamines Ur Ql Scn>500 ng/mL See Note (Cutoff 500) None Note: [id number] E@Reenter manual test result: NEGATIVE@by Jia Lentz at 10/19/20 1640.Responsible Observer: Amphetamines Urine Amphetamines Screen 400.5160 (A) Barbiturates Ur Ql Scn>200 ng/mL See Note (Cutoff 200) None Note: [id number] E@Reenter manual test result: NEGATIVE@by Jia Lentz at 10/19/20 1640.Responsible Observer: Barbiturates Urine Barbiturates 400.5200 (A) Reviewed by Maya Barron MD on 10/20; All test results are final unless otherwise noted. Reported Physicians [facility] Ordered by Maya Barron MD on 10/19/2020 Collected: 10/19/2020 Reported: 10/19/2020 16:40 Reported Physicians See Note None Note: Reported Physicians:Ordering: Les Vanegas: Fady Raza To: Maya Barron Reviewed by Maya Barron MD on 10/20; All test results are final unless otherwise noted. TSH w/ reflex to Free T4 [facility] Ordered by Maya Barron MD on 10/19/2020 Collected: 10/19/2020 Reported: 10/19/2020 16:08 TSH SerPl DL<=0.005 mIU/L-aCnc 1.66 MicroInternationalUnitsPerMilliLiter_[Arbitrary_Con (0.35-5. 50) N (Normal) Note: Responsible Observer: TSH TSH 600 .7060 (D) Reviewed by Maya Barron MD on 10/20; All test results are final unless otherwise noted. Reported Physicians [facility] Ordered by Maya Braron MD on 10/19/2020 Collected: 10/19/2020 Reported: 10/19/2020 16:08 Reported Physicians See Note None Note: Reported Physicians:Ordering: Les Vanegas: Fady Raza To: Maya Barron Reviewed by Maya Barron MD on 10/20; All test results are final unless otherwise noted. TROPONIN [facility] Ordered by Maya Barron MD on [...] are final unless otherwise noted. Reported Physicians [facility] Ordered by Maya Barron MD on 10/19/2020 Collected: 10/19/2020 Reported: 10/19/2020 16:10 Reported Physicians See Note None Note: Reported Physicians:Ordering: Les Vanegasding: Fady Raza To: Maya Barron Reviewed by Maya Barron MD on 10/20; All test results are final unless otherwise noted. CRP, C-REACTIVE PROTEIN [facility] Ordered by Maya Barron MD on 10/19/2020 Collected: 10/19/2020 Reported: 10/19/2020 16:08 CRP SerPl-mCnc 7.5 MilliGramsPerLiter_[Mass_Concentration_Units] (0.0-5.0) H (High) Note: Responsible Observer: CRP C-Reacti ve Protein 401.4355 (H) Reviewed by Maya Barron MD on 10/20; All test results are final unless otherwise noted. SED RATE [facility] Ordered by Maya Barron MD on 10/19/2020 Collected: 10/19/2020 Reported: 10/19/2020 16:32 ESR Bld Qn Westrgrn 22 (0-20) H (High) Note: @Reenter manual test result: 22@by Jia Lentz at 04/08/21 1632.Responsible Observer: SED RATE SED RATE 100.6400 (B) Reviewed by Maya Barron MD on 10/20; All test results are final unless otherwise noted. Reported Physicians [facility] Ordered by Maya Barron MD on 10/19/2020 Collected: 10/19/2020 Reported: 10/19/2020 16:33 Reported Physicians See Note None Note: Reported Physicians:Ordering: Les Vanegasding: Fady Raza To: Maya Barron Reviewed by Maya Barron MD on 10/20; All test results are final unless otherwise noted. CMP [facility] Ordered by Maya Barron MD on [...] unless otherwise noted. CBC W AUTO DIFF [facility] Ordered by Maya Barron MD on [...] Auto See Note (0-2) N (Normal) Note: [id number] Ob senior sql server database developer: IG% IG% 100.1375 (B) Hct VFr [...] are final unless otherwise noted. Reported Physicians [facility] Ordered by Maya Barron MD on 10/19/2020 Collected: 10/19/2020 Reported: 10/19/2020 16:33 Reported Physicians See Note None Note: Reported Physicians:Ordering: Les Vanegastending: Fady Raza To: Maya Barron Reviewed by Maya Barron MD on 10/20; All test results are final unless otherwise noted. PT/PTT [facility] Ordered by Maya Barron MD on [...] are final unless otherwise noted. Reported Physicians [facility] Ordered by Maya Barron MD on 10/08/2020 Collected: 10/08/2020 Reported: 10/08/2020 03:22 Reported Physicians See Note None Note: Reported Physicians:Ordering: Sana Recinosending: Sammie Ann To: Maya Barron Reviewed by Maya Barron MD on 10/09; All test results are final unless otherwise noted. BMP [facility] Ordered by Maya Barron MD on [...] are final unless otherwise noted. Reported Physicians [facility] Ordered by Maya Barron MD on 10/08/2020 Collected: 10/08/2020 Reported: 10/08/2020 03:21 Reported Physicians See Note None Note: Reported Physicians:Ordering: Sana Recinosending: Sammie Ann To: Maya Barron Reviewed by Maya Barron MD on 10/09; All test results are final unless otherwise noted. CBC W AUTO DIFF [facility] Ordered by Maya Barron MD on [...] Auto See Note (0-2) N (Normal) Note: [id number] Ob senior sql server database developer: IG% IG% 100.1375 (B) Hct VFr [...] results are final unless otherwise noted. MAGNESIUM [facility] Ordered by Maya Barron MD on 10/08/2020 Collected: 10/08/2020 Reported: 10/08/2020 03:17 Magnesium SerPl-mCnc 1.8 MilliGramsPerDeciLiter_[Mass_Concentration_Units] (1.3-2.7) N (Normal) Note: Responsible Observer: Magnesium Ma gnesium 400.3300 (G) Reviewed by Maya Barron MD on 10/09; All test results are final unless otherwise noted. D-DIMER [facility] Ordered by Maya Barron MD on [...] are final unless otherwise noted. Reported Physicians [facility] Ordered by Maya Barron MD on 10/08/2020 Collected: 10/08/2020 Reported: 10/08/2020 03:27 Reported Physicians See Note None Note: Reported Physicians:Ordering: Sana Recinosending: Sammie Ann To: Maya Barron Reviewed by Maya Barron MD on 10/09; All test results are final unless otherwise noted. TSH w/ reflex to Free T4 [facility] Ordered by Maya Barron MD on 10/04/2020 Collected: 10/04/2020 Reported: 10/04/2020 17:42 TSH SerPl DL<=0.005 mIU/L-aCnc 1.92 MicroInternationalUnitsPerMilliLiter_[Arbitrary_Con (0.35-5. 50) N (Normal) Note: Responsible Observer: TSH TSH 600 .7060 (D) Reviewed by Maya Barron MD on 10/09; All test results are final unless otherwise noted. Reported Physicians [facility] Ordered by Maya Barron MD on 10/04/2020 Collected: 10/04/2020 Reported: 10/04/2020 17:42 Reported Physicians See Note None Note: Reported Physicians:Ordering: Les Vanegastending: Fady Raza To: Maya Barron Reviewed by Maya Barron MD on 10/09; All test results are final unless otherwise noted. 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 [facility] Ordered by Maya [...] are final unless otherwise noted. Reported Physicians [facility] Ordered by Maya Barron MD on 10/04/2020 Collected: 10/04/2020 Reported: 10/04/2020 17:42 Reported Physicians See Note None Note: Reported Physicians:Ordering: Les Vanegas: Fady Raza To: Maya Barron Reviewed by Maya Barron MD on 10/09; All test results are final unless otherwise noted. SED RATE [facility] Ordered by Maya Barron MD on 10/04/2020 Collected: 10/04/2020 Reported: 10/04/2020 18:05 ESR Bld Qn Westrgrn 16 (0-20) N (Normal) Note: @[facility] manual test result: 16@by Jia Lentz at 10/04/20 1805.Responsible Observer: SED RATE SED RATE 100.6400 (B) Reviewed by Maya Barron MD on 10/09; All test results are final unless otherwise noted. Reported Physicians [facility] Ordered by Maya Barron MD on 10/04/2020 Collected: 10/04/2020 Reported: 10/04/2020 18:06 Reported Physicians See Note None Note: Reported Physicians:Ordering: Les Vanegas: Fady Raza To: Maya Barron Reviewed by Maya Barron MD on 10/09; All test results are final unless otherwise noted. TROPONIN [facility] Ordered by Maya Barron MD on [...] are final unless otherwise noted. Reported Physicians [facility] Ordered by Maya Barron MD on 10/04/2020 Collected: 10/04/2020 Reported: 10/04/2020 17:35 Reported Physicians See Note None Note: Reported Physicians:Ordering: Les Vanegastending: Fady Raza To: Maya Barron Reviewed by Maya Barron MD on 10/09; All test results are final unless otherwise noted. 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 [facility] Ordered by Maya [...] are final unless otherwise noted. Reported Physicians [facility] Ordered by Maya Barron MD on 10/03/2020 Collected: 10/03/2020 Reported: 10/03/2020 20:03 Reported Physicians See Note None Note: Reported Physicians:Ordering: Yoli NapolesAttending: Yoli SilvaCopy To: Maya Barron Reviewed by Maya Barron MD on 10/04; All test results are final unless otherwise noted. BHCG Quantitative [facility] Ordered by Maya Barron MD on 10/03/2020 Collected: 10/03/2020 Reported: 10/03/2020 20:23 [facility] 416[address] MilliInternationalUnitsPerMilliLiter_[Arbitrary_Con (0-10) H (High) Note: @Instrument will [...] are final unless otherwise noted. Reported Physicians [facility] Ordered by Maya Barron MD on 10/03/2020 Collected: 10/03/2020 Reported: 10/03/2020 20:23 Reported Physicians See Note None Note: Reported Physicians:Ordering: Yoli NapolesAttending: Charles Silva To: Maya Barron Reviewed by Maya Barron MD on 10/04; All test results are final unless otherwise noted. TROPONIN [facility] Ordered by Maya Barron MD on [...] are final unless otherwise noted. Reported Physicians [facility] Ordered by Maya Barron MD on 10/03/2020 Collected: 10/03/2020 Reported: 10/03/2020 20:07 Reported Physicians See Note None Note: Reported Physicians:Ordering: Yoli NapolesAttending: Charles Silva To: Maya Barron Reviewed by Maya Barron MD on 10/04; All test results are final unless otherwise noted. MANUAL DIFF [facility] Ordered by Maya Barron MD on [...] are final unless otherwise noted. Reported Physicians [facility] Ordered by Maya Barron MD on 10/03/2020 Collected: 10/03/2020 Reported: 10/03/2020 19:56 Reported Physicians See Note None Note: Reported Physicians:Ordering: Yoli NapolesAttending: Charles Silva To: Maya Barron Reviewed by Maya Barron MD on 10/04; All test results are final unless otherwise noted. FREE T4 (LAB) [facility] Ordered by Maya Barron MD on 10/03/2020 Collected: 10/03/2020 Reported: 10/03/2020 20:08 T4 Free SerPl-mCnc 0.97 NanoGramsPerDeciLiter_[Mass_Concentration_Units] (0.89-1.76) N (Normal) Note: Responsible Observer: FREE T4 Free Thyroxine 600.7005 (D) Reviewed by Maya Barron MD on 10/04; All test results are final unless otherwise noted. Reported Physicians [facility] Ordered by Maya Barron MD on 10/03/2020 Collected: 10/03/2020 Reported: 10/03/2020 20:08 Reported Physicians See Note None Note: Reported Physicians:Ordering: Yoli NapolesAttending: Charles Silva To: Maya Barron Reviewed by Maya Barron MD on 10/04; All test results are final unless otherwise noted. ADD ON MICROSCOPIC [facility] Ordered by Maya Barron MD on 10/03/2020 Collected: 10/03/2020 Reported: 10/03/2020 19:52 ADD ON MICROSCOPIC See Note (0-5) None Note: NOTES OTHER/NOT INTERPRETED Bacteria UrnS Ql Micro SMALL AMOUNT Bacteria UrnS Ql Micro SMALL AMOUNT Bacteria UrnS Ql Micro L Bacteria UrnS Ql Micro Bacteria UrnS Ql Micro Bacteria UrnS Ql Micro Bacteria UrnS Ql Micro [id number] Bacteria UrnS Ql Micro Bacteria UrnS Ql [...] are final unless otherwise noted. Reported Physicians [facility] Ordered by Maya Barron MD on 10/03/2020 Collected: 10/03/2020 Reported: 10/03/2020 19:52 Reported Physicians See Note None Note: Reported Physicians:Ordering: Yoli NapolesAttending: Charles Silva To: Maya Barron Reviewed by Maya Barron MD on 10/04; All test results are final unless otherwise noted. UA W/ CULTURE IF ABNORMAL [facility] Ordered by Maya Barron MD on 10/03/2020 Collected: 10/03/2020 Reported: 10/03/2020 19:52 Urobilinogen Ur Ql See Note (0.2-1 EU/dl) None Note: 0.2 EU/dl0.2 EU/[id number] E U/dlResponsible Observer: UROBILINOGEN UROBILINOGEN 300.4500 (C) RBC # Ur Strip NEGATIVE (NEGATIVE) None Note: Responsible Observer: BLOOD BLOOD 300.4652 (C) Prot Ur Ql Strip See Note (NEGATIVE) None Note: [id number] EResponsible Observer: PROTEIN PROTEIN 300.3750 (C) Ketones Ur Ql Strip See Note (NEGATIVE) None Note: [id number] EResponsible Observer: KETONE KETONE 300.3900 (C) Bilirub Ur Ql Strip.auto See Note (NEGATIVE) None Note: [id number] EResponsible Observer: BILIRUBIN BILIRUBIN 300.4550 (C) Glucose Ur Strip.auto-mCnc NEGATIVE (NEGATIVE) None Note: Responsible Observer: GLUCOSE GLUC OSE 300.3850 (C) Appearance Ur See Note (CLEAR) None Note: CLEARCLEARLCLEARResponsible Observ er: APPEARANCE APPEARANCE 300.3400 (A) Color Ur See Note None Note: YELLOWYELLOWLYELLOWResponsible Obs erver: COLOR COLOR 300.3330 (A) Leukocyte esterase Ur Ql Strip See Note (NEGATIVE) None Note: [id number]@DO MICR O!!!!A Culture has been added to this specimen per established criteriaResponsible Observer: LEUKOCYTES LEUKOCYTES 300.3576 (C) Nitrite Ur Ql Strip See Note (NEGATIVE) None Note: [id number] EResponsible Observer: NITRITE NITRITE 300.3652 (B) pH [...] are final unless otherwise noted. Urine culture [facility] Ordered by Maya Barron MD on [...] are final unless otherwise noted. BHCG, QUANTITATIVE [facility] Ordered by Maya Barron MD on 09/18/2020 Collected: 09/18/2020 Reported: 09/18/2020 20:21 [facility] [id number] MilliInternationalUnitsPerMilliLiter_[Arbitrary_Con (0-10) H (High) Note: APPROXIMATE GESTATION [...] are final unless otherwise noted. Reported Physicians [facility] Ordered by Maya Barron MD on 09/18/2020 Collected: 09/18/2020 Reported: 09/18/2020 20:22 Reported Physicians See Note None Note: Reported Physicians:Ordering: Yoli NapolesAttending: Charles Silva To: Maya Barron Reviewed by Maya Barron MD on 09/20; All test results are final unless otherwise noted. 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 [facility] Ordered by Maya [...] are final unless otherwise noted. Reported Physicians [facility] Ordered by Maya Barron MD on 09/18/2020 Collected: 09/18/2020 Reported: 09/18/2020 20:10 Reported Physicians See Note None Note: Reported Physicians:Ordering: Yoli NapolesAttending: Charles Silva To: Maya Barron Reviewed by Maya Barron MD on 09/20; All test results are final unless otherwise noted. TROPONIN [facility] Ordered by Maya Barron MD on [...] are final unless otherwise noted. Reported Physicians [facility] Ordered by Maya Barron MD on 09/18/2020 Collected: 09/18/2020 Reported: 09/18/2020 20:10 Reported Physicians See Note None Note: Reported Physicians:Ordering: Brook yeung, YoliAttending: Charles Silva To: Maya Barron Reviewed by Maya Barron MD on 09/20; All test results are final unless otherwise noted. Urine culture [facility] Ordered by Cat Gutierrez RPA on 09/11/2020 Collected: 09/11/2020 Reported: 09/12/2020 13:11 Bacteria Ur Cult See Note None Note: NGNo growth.L1NG NOTES See Note None Note: GEORGIANA PICKARD IN OTHER NAME IN MEDICAL RECORD Reviewed by Cat Gutierrez RPA on 09/12; All test results are final unless otherwise noted. Reported Physicians [facility] Ordered by Cat Gutierrez RPA on 09/11/2020 Collected: 09/11/2020 Reported: 09/12/2020 13:11 Reported Physicians See Note None Note: Reported Physicians:Ordering: Cat ConwayAttending: Cat Gutierrez Reviewed by Cat Gutierrez RPA on 09/12; All test results are final unless otherwise noted. UA W/ CULTURE IF ABNORMAL [facility] Ordered by Maya Barron MD on 09/10/2020 Collected: 09/10/2020 Reported: 09/10/2020 17:48 Urobilinogen Ur Ql See Note (0.2-1 EU/dl) None Note: 0.2 EU/dl0.2 EU/[id number] E U/dlResponsible Observer: UROBILINOGEN UROBILINOGEN 300.4500 (C) RBC # Ur Strip NEGATIVE (NEGATIVE) None Note: Responsible Observer: BLOOD BLOOD 300.4652 (C) Prot Ur Ql Strip See Note (NEGATIVE) None Note: [id number] EResponsible Observer: PROTEIN PROTEIN 300.3750 (C) Ketones Ur Ql Strip See Note (NEGATIVE) None Note: [id number] ble Observer: KETONE KETONE 300.3900 (C) Bilirub Ur Ql Strip.auto See Note (NEGATIVE) None Note: [id number] EResponsible Observer: BILIRUBIN BILIRUBIN 300.4550 (C) Glucose Ur Strip.auto-mCnc NEGATIVE (NEGATIVE) None Note: Responsible Observer: GLUCOSE GLUC OSE 300.3850 (C) Appearance Ur See Note (CLEAR) None Note: CLEARCLEARLCLEARResponsible Observ er: APPEARANCE APPEARANCE 300.3400 (A) Color Ur See Note None Note: YELLOWYELLOWLYELLOWResponsible Obs erver: COLOR COLOR 300.3330 (A) Leukocyte esterase Ur Ql Strip See Note (NEGATIVE) None Note: [id number] EResponsible Observer: LEUKOCYTES LEUKOCYTES 300.3576 (C) Nitrite Ur Ql Strip See Note (NEGATIVE) None Note: [id number] EResponsible Observer: NITRITE NITRITE 300.3652 (B) pH [...] are final unless otherwise noted. Reported Physicians [facility] Ordered by Maya Barron MD on 09/10/2020 Collected: 09/10/2020 Reported: 09/10/2020 17:48 Reported Physicians See Note None Note: Reported Physicians:Ordering: Les Vanegas AAttending: Fady Raza To: Maya Barron Reviewed by Maya Barron MD on 09/11; All test results are final unless otherwise noted. BHCG, QUANTITATIVE [facility] Ordered by Maya Barron MD on 09/10/2020 Collected: 09/10/2020 Reported: 09/10/2020 15:48 B-HCG [facility] [id number] MilliInternationalUnitsPerMilliLiter_[Arbitrary_Con (0-10) H (High) Note: @Instrument will [...] are final unless otherwise noted. Reported Physicians [facility] Ordered by Maya Barron MD on 09/10/2020 Collected: 09/10/2020 Reported: 09/10/2020 15:49 Reported Physicians See Note None Note: Reported Physicians:Ordering: Les Vanegas AAttending: Fady Raza To: Maya Barron Reviewed by Maya Barron MD on 09/11; All test results are final unless otherwise noted. ABO/Rh Type [facility] Ordered by Maya Barron MD on 09/10/2020 Collected: 09/10/2020 Reported: 09/10/2020 15:43 Blood bank studies Yes None Note: Responsible Observer: Prev. Histor y? Previous History? 100.0800 (A) Blood Type See Note None Note: OPO PositiveLResponsible Observer: Blood Type Blood Type 110.0950 (C) Reviewed by Maya Barron MD on 09/11; All test results are final unless otherwise noted. Reported Physicians [facility] Ordered by Maya Barron MD on 09/10/2020 Collected: 09/10/2020 Reported: 09/10/2020 15:43 Reported Physicians See Note None Note: Reported Physicians:Ordering: Les Vanegastending: Fady Raza To: Maya Barron Reviewed by Maya Barron MD on 09/11; All test results are final unless otherwise noted. COVID [facility] Ordered by Maya Barron [...] findings,re- testing should be considered [facility]. Laboratory test results shouldalways be considered in the context of clinicalobservations and epidemiological data in making a finaldiagnosis and patient management decisions.Please review the "Fact Sheets" and FDA authorizedlabeling available for health care providers andpatients using the following websites:https://www.[employer] .BABADU/home/Covid-19/HCP/NAAT/fact-orddy9okcoq://www.[employer].[place]ABADU/home/Cov id-19/Patients/NAAT/fact-nkknv7Lure test has been authorized by the FDA under anEmergency Use Authorization (EUA) for use by authorizedlaboratories.Due to the current public health emergency, [facility] is receiving a high volume of samples [...] information about COVID-19 can be foundat the [employer] website:www.[facility].com/Covid19.THIS TEST WAS PERFORMED AT:[facility] [address]CUJPXLCLAUDY ONEILLesponsible Observer: COVID-19 COVID-19 ТАТЬЯНА (SARS-CoV-2) [id number] 914.6488 ([place]) Reviewed by Maya Barron MD on 08/25; All test results are final unless otherwise noted. Reported Physicians [facility] Ordered by Maya Barron MD on 08/23/2020 Collected: 08/23/2020 Reported: 08/25/2020 03:57 Reported Physicians See Note None Note: Reported Physicians:Ordering: Sana Recinosending: Jasper AnnhCtricia To: Maya Barron Reviewed by Maya Barron MD on 08/25; All test results are final unless otherwise noted. Rapid Strep [facility] Ordered by Maay Barron MD on 08/15/2020 [address] [place], [address] Collected: 08/15/2020 Reported: 08/15/2020 11:47 tel :[phone] strep antigen normal (negative) N (Normal) Reviewed by Maya Barron MD on 08/15; All test results are final unless otherwise noted. Urinalysis w/out microscopy [facility] Ordered by Maya Barron MD on 08/15/2020 [address] [place], [address] Specimen Source: Urine Collected: 08/15/2020 Reporte d: 08/15/2020 11:03 tel:[phone] bilirubin normal (neg) N (Normal) blood normal [...] unless otherwise noted. Extended hours FLU/COV2 NAAT [facility] Ordered by Maya Barron MD on 08/15/2020 Collected: 08/15/2020 Reported: 08/15/2020 15:55 Extended hours FLU/COV2 NAAT See Note None Note: TNPNo Reportable ResultLTNPNo Repo rtable [id number] NOTES See Note None Note: GEORGIANA PICKARD IN OTHER NAME IN MEDICAL RECORD Reviewed by Maya Barron MD on 08/16; All test results are final unless otherwise noted. Reported Physicians [facility] Ordered by Maya Barron MD on 08/15/2020 Collected: 08/15/2020 Reported: 08/15/2020 15:55 Reported Physicians See Note None Note: Reported Physicians:Ordering: Maya AlvarengaAttending: Maya Barron Reviewed by Maya Barron MD on 08/16; All test results are final unless otherwise noted. Sweta Raquel SARS/FLU [facility] Ordered by Maya Barron MD on 08/15/2020 Collected: 08/15/2020 Reported: 08/15/2020 15:55 Sweta Raquel SARS/FLU See Note None Note: Sweta Raquel is a rapid, automated q ualitative anddifferentiation of Influenza type A,B and PFRD-HXN-4OLKO-RT-PCR testNORMAL VALUE IS "NOT DETECTED".Limitations of the sweta raquel Influenza A/B & YQZU-TOY-0cpwjf method.Modifications to manufacturers recommendation and proceduresmay alter performance of the test.Negative results do not preclude Influenza A,B or SARS- WEV4aktnyadaxz and should not be used as the [...] out diseases caused by other bacterialor viral pathogens.12939-1JYBO-cfg CoV RNA Resp Ql ТАТЬЯНА+probeLNNSARS SARS-COV-2 NOT [id number]-OSA-0 NOT [id number] RNA Resp Ql ТАТЬЯНА+probeLNNFLUAInfluenza A Not [id number] A Not Qjrilevr42406-7VJXFN RNA Resp Ql ТАТЬЯНА+probeLNNINBInfluenza B Not [id number] B Not Detected NOTES See Note None Note: GEORGIANA PICKARD IN OTHER NAME IN MEDICAL RECORD Reviewed by Maya Barron MD on 08/18; All test results are final unless otherwise noted. Throat culture [facility] Ordered by Maya Barron MD on 08/15/2020 Collected: 08/15/2020 Reported: 08/17/2020 06:37 Throat culture results Normal Deisy None Reviewed by Maya Barron MD on 08/18; All test results are final unless otherwise noted. Reported Physicians [facility] Ordered by Maya Barron MD on 08/15/2020 Collected: 08/15/2020 Reported: 08/17/2020 06:37 Reported Physicians See Note None Note: Reported Physicians:Ordering: Maya AlvarengaAttending: Maya Barron Reviewed by Maya Barron MD on 08/18; All test results are final unless otherwise noted. AFFIRM [facility] Ordered by Cat Gutierrez RPA on 08/09/2020 Collected: 08/09/2020 Reported: 08/11/2020 06:52 Dionna species DNA Probe NOT DETECTED (NOT DETECTED) None Note: THIS TEST WAS PERFORMED AT:[address] [address]DJGRDKCLAUDY ONEILLesponsible Observer: Dionna DNA Dionna species DNA Probe [id number] 003.2779 ([facility]) Gardnerella DNA Probe DETECTED (NOT DETECTED) H (High) Note: Increased levels of G. vaginalis m ay not be significantin the absence of signs and symptoms of bacterialvaginosis.Responsible Observer: Gardnerella DNA Gardnerella DNA Probe [id number] 153.8673 ([facility]) Trichomonas DNA Probe NOT DETECTED (NOT DETECTED) None Note: Responsible Observer: Trichomonas DNA Trichomonas DNA Probe [id number] 833.2349 ([facility]) NOTES See Note None Note: PICKARD:IN OTHER NAME IN MEDICAL RECORD Reviewed on 08/11/2020; All test result s are final unless otherwise noted. Reported Physicians [facility] Ordered by Cat Gutierrez RPA on 08/09/2020 Collected: 08/09/2020 Reported: 08/11/2020 06:52 Reported Physicians See Note None Note: Reported Physicians:Ordering: Atte nding: Gaudencio GutierrezanaCopy To: Maya Barron Reviewed on 08/11/2020; All test result s are final unless otherwise noted. HPVI [facility] Ordered by Cat Gutierrez RPA on 08/09/2020 Collected: 08/09/2020 Reported: 08/15/2020 06:53 Thin Prep Vag See Note None Note: See scanned reportSee scanned repo rtLSee scanned reportResponsible Observer: TP w/HPV if ASC Thinprep w/HPV if ASCUS 805.1454 ([facility]) NOTES See Note None Note: OUN08-90Cdkdzltmth Technique: BRUS H-SPATULABody Site: CERVIX Reviewed by Cat Gutierrez RPA on 08/15; All test results are final unless otherwise noted. Reported Physicians [facility] Ordered by Cat Gutierrez RPA on 08/09/2020 Collected: 08/09/2020 Reported: 08/15/2020 06:53 Reported Physicians See Note None Note: Reported Physicians:Ordering: Atte nding: Brenda DyanaCopy To: Maya Barron Reviewed by Cat Gutierrez RPA on 08/15; All test results are final unless otherwise noted. GCAMP [facility] Ordered by Cat Gutierrez RPA on 08/09/2020 Collected: 08/09/2020 Reported: 08/11/2020 06:52 C trach rRNA XXX Ql ТАТЬЯНА+probe See Note (NOT DETECTED) None Note: NOT DETECTEDNOT [id number] 6NOT DETECTEDResponsible Observer: C.Trach RNA Chlamydia trachomatis DNA-ТАТЬЯНА [id number] 913.9900 ([place]) N gonorrhoea rRNA XXX Ql ТАТЬЯНА+probe See Note (NOT DETECTED) None Note: NOT DETECTEDNOT [id number] 6NOT DETECTEDResponsible Observer: GC RNA Neisseria gonorrhoeae DNA -ТАТЬЯНА 50960314 913.9905 ([place]) Chlamydia/GC DNA Note SEE NOTE None Note: The analytical performance charact eristics of thisassay, when used to test SurePath(TM) specimens have beendetermined by [employer]. The modifications havenot been cleared or approved by the FDA. This assay hasbeen validated pursuant to the CLIA regulations and isused for clinical purposes.For additional information, please refer tohttps://education.[employer].BABADU/faq/FRW032(This link is being provided for information/educational purposes only.)THIS TEST WAS PERFORMED AT:[facility] [address]KACLAUDY BURGESSesponsible Observer: GC/Chlam Note Chlamydia/GC DNA Note [id number] 913.9907 (A) NOTES See Note None Note: PICKARD:IN OTHER NAME IN MEDICAL RECORD Reviewed by Cat Gutierrez RPA on 08/12; All test results are final unless otherwise noted. Reported Physicians [facility] [facility] Ordered by Cat Gutierrez RPA on 08/09/2020 Collected: 08/09/2020 Reported: 08/11/2020 06:52 Reported Physicians See Note None Note: Reported Physicians:Ordering: Atte oralia: Rigo Gutierrez To: Maya Barron Reviewed by Cat Gutierrez RPA on 08/12; All test results are final unless otherwise noted. ADD ON MICROSCOPIC [facility] Ordered by Cat Gutierrez RPA on 08/09/2020 Collected: 08/09/2020 Reported: 08/09/2020 12:23 ADD ON MICROSCOPIC See Note (0-5) H (High) Note: NOTES OTHER/NOT INTERPRETED Bacteria UrnS Ql Micro SMALL AMOUNT Bacteria UrnS Ql Micro SMALL AMOUNT Bacteria UrnS Ql Micro L Bacteria UrnS Ql Micro Bacteria UrnS Ql Micro Bacteria UrnS Ql Micro Bacteria UrnS Ql Micro [id number] Bacteria UrnS Ql Micro Bacteria UrnS Ql [...] Ql Micro Mucous Threads UrnS Ql Micro [id number] Mucous Threads UrnS Ql Micro Mucous Threads UrnS Ql Micro MODERATE AMOUNT WBC # Ur Manual 5-8 @08/09/20 1210: UA W/ MICRO added. RFLXG = UMIC.Method of Collection:: Clean CatchResponsible Observer: WBC WBC 300.5000 (A) Reviewed by Cat Gutierrez RPA on 08/12; All test results are final unless otherwise noted. Reported Physicians [facility] Ordered by Cat Gutierrez RPA on 08/09/2020 Collected: 08/09/2020 Reported: 08/10/2020 17:47 Reported Physicians See Note None Note: Reported Physicians:Ordering: Attchandler barton: Rigo Gutierrez To: Maya Barron Reviewed by Cat Gutierrez RPA on 08/12; All test results are final unless otherwise noted. MEDMATCH [facility] Ordered by Cat Gutierrez RPA on 08/09/2020 Collected: 08/09/2020 Reported: 08/13/2020 15:56 MEDMATCH See scanned report None Note: Responsible Observer: MEDMATCH MED MATCH [phone] ([facility]) Reviewed by Cat Gutierrez RPA on 08/14; All test results are final unless otherwise noted. Reported Physicians [facility] Ordered by Cat Gutierrez RPA on 08/09/2020 Collected: 08/09/2020 Reported: 08/13/2020 15:56 Reported Physicians See Note None Note: Reported Physicians:Ordering: Attchandler barton: Rigo Gutierrez To: Maya Barron Reviewed by Cat Gutierrez RPA on 08/14; All test results are final unless otherwise noted. URINALYSIS [facility] Ordered by Cat Gutierrez RPA on 08/09/2020 Collected: 08/09/2020 Reported: 08/09/2020 12:23 Urobilinogen Ur Ql See Note (0.2-1 EU/dl) None Note: 1 EU/dl1 EU/[id number] EU/dlRe sponsible Observer: UROBILINOGEN UROBILINOGEN 300.4500 (C) RBC # Ur Strip NEGATIVE (NEGATIVE) None Note: Responsible Observer: BLOOD BLOOD 300.4650 (C) Prot Ur Ql Strip See Note (NEGATIVE) None Note: [id number] ble Observer: PROTEIN PROTEIN 300.3750 (C) Ketones Ur Ql Strip See Note (NEGATIVE) None Note: [id number] ble Observer: KETONE KETONE 300.3900 (C) Bilirub Ur Ql Strip.auto See Note (NEGATIVE) None Note: [id number] EResponsible Observer: BILIRUBIN BILIRUBIN 300.4550 (C) Glucose Ur Strip.auto-mCnc NEGATIVE (NEGATIVE) None Note: Responsible Observer: GLUCOSE GLUC OSE 300.3850 (C) Appearance Ur See Note (CLEAR) None Note: CLEARCLEARLCLEARResponsible Observ er: APPEARANCE APPEARANCE 300.3400 (A) Color Ur See Note None Note: DARK YELLOWDARK YELLOWLDARK YELLOW Responsible Observer: COLOR COLOR 300.3300 (A) Leukocyte esterase Ur Ql Strip See Note (NEGATIVE) None Note: [id number]@DO MICR O!!!!Responsible Observer: LEUKOCYTES LEUKOCYTES 300.3575 (C) Nitrite Ur Ql Strip See Note (NEGATIVE) None Note: [id number] EResponsible Observer: NITRITE NITRITE 300.3650 (B) pH [...] are final unless otherwise noted. Urine culture [facility] Ordered by Cat Gutierrez [facility] on 08/09/2020 Collected: 08/09/2020 Reported: 08/10/2020 08:33 Bacteria Ur Cult See Note None Note: NGNo growth.L1NG Reviewed by Cat Gutierrez RPA on 08/14; All test results are final unless otherwise noted. Varicella-Zoster IgG Antibody [facility] Ordered by Cat Gutierrez [facility] on 08/09/2020 Collected: 08/09/2020 Reported: 08/10/2020 17:47 VZV IgG Ser [facility] 242.10 None Note: Index Interpr [...] Antibody Immunity Screen, ACIF.THIS TEST WAS PERFORMED AT:[facility] [address]NQNDUG ME RATI,MDResponsible Observer: VARICELLA IGG Varicella-Zoster IgG Antibody [id number] 913.2241 ([place]) NOTES See Note None Note: Patient Street Address: [address] [place]: [place] Zip Code: [address] Reviewed by Cat Gutierrez RPA on 08/12; All test results are final unless otherwise noted. Type and Screen [facility] Ordered by Cat Gutierrez RPA on [...] are final unless otherwise noted. Reported Physicians [facility] Ordered by Cat Gutierrez RPA on 08/09/2020 Collected: 08/09/2020 Reported: 08/09/2020 12:39 Reported Physicians See Note None Note: Reported Physicians:Ordering: Cat ConwayAttending: Rigo Gutierrez To: Maya Barron Reviewed by Cat Gutierrez RPA on 08/10; All test results are final unless otherwise noted. HCV RFX ТАТЬЯНА [facility] Ordered by Cat Gutierrez RPA on 08/09/2020 Collected: 08/09/2020 Reported: 08/10/2020 17:47 HCV Ab Ser Ql See Note (NON-REACTIVE) None Note: [id number] 7NON-REACTIVEResponsible Observer: HEP C ANTIBODY Hepatitis C Antibody [id number] 914.8305 ([facility]) HCV RNA Qualitative (ТАТЬЯНА) 0.54 (<1.00) None Note: HCV antibody was non-reactive. The re is no laboratoryevidence of HCV infection.In most cases, no further action is required. However,if recent HCV exposure is suspected, a test for HCV RNA(test code 79629) is suggested.For additional information please refer tohttp://education.AUTOFACT/faq/LDR98t7(This link is being provided for informational/educational purposes only.)THIS TEST WAS PERFORMED AT:[facility] [address]CLAUDY ONEILLesponsible Observer: SIG TO C/O SIGNAL TO CUTOFF [id number] 555.5954 ([place]) NOTES See Note None Note: Patient Street Address: [address] [place] [address] [address]Patient City: [place] State[place] [facility] Zip Code: [address]prnhvz Reviewed by Cat Gutierrez RPA on 08/12; All test results are final unless otherwise noted. Reported Physicians [facility] Ordered by Cat Gutierrez RPA on 08/09/2020 Collected: 08/09/2020 Reported: 08/10/2020 17:47 Reported Physicians See Note None Note: Reported Physicians:Ordering: Atte nding: Rigo Gutierrez To: Maya Barron Reviewed by Cat Gutierrez RPA on 08/12; All test results are final unless otherwise noted. 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 TSH [facility] Ordered by Cat Gutierrez RPA on 08/09/2020 Collected: 08/09/2020 Reported: 08/09/2020 14:24 TSH SerPl DL<=0.005 mIU/L-aCnc 1.18 MicroInternationalUnitsPerMilliLiter_[Arbitrary_Con (0.35-5. 50) N (Normal) Note: Responsible Observer: TSH TSH 600 .7055 (D) Reviewed by Cat Gutierrez RPA on 08/14; All test results are final unless otherwise noted. Lead (Venous) Wh.Bld [facility] Ordered by Cat Gutierrez RPA on 08/09/2020 Collected: 08/09/2020 Reported: 08/10/2020 17:47 Lead Bld-sCnc <1 (<5) None Note: See Note 1Note 1This test was faith granados and its analytical performancecharacteristics have been determined by [employer]. It has not been cleared or approved by theA. This assay has been validated pursuant to the CLIAregulations and is used for clinical purposes.THIS TEST WAS PERFORMED AT:[facility] [address]GDMWSJ MERATI,MDResponsible Observer: Lead, WB Lead, Whole Blood [id number] 911.2190 ([facility]) NOTES See Note None Note: Patient Street Address: [address] [place] [address] [address]Patient City: [place]: [facility] Zip Code: [address]vo Reviewed by Cat Gutierrez RPA on 08/14; All test results are final unless otherwise noted. ncPN REF [facility] Ordered by Cat Gutierrez RPA on 08/09/2020 Collected: 08/09/2020 Reported: 08/13/2020 15:26 T pallidum Ab Ser Ql Aggl See Note (Nonreactive) None Note: [id number] onreactiveResponsible Observer: TP-PA Treponema pallidum Ab (TP-PA) [id number] 908.0286 ([facility]) HIV1 RNA SerPl Ql ТАТЬЯНА+probe See Note None Note: TNPNo Reportable ResultLTNPNo Repo rtable ResultLLEP.LIVENTNPResponsible Observer: HIV 1 RNA, QL T HIV 1 RNA, QL TMA [id number] 908.0254 ([facility]) HBV surface Ag SerPl Ql IA See Note (NON-REACTIVE) None Note: [id number] 5NON-REACTIVEResponsible Observer: HBSAG Hepatitis B Surface Antigen 84001139 910.2004 ([facility]) RUBV IgG SerPl IA-aCnc 1.76 None Note: Index Interpretatio n ----- <0.90 Not consistent with immunity 0.90-0.99 Equivocal > or = 1.00 Consistent with immunityThe presence of rubella IgG antibody suggestsimmunization or past or current infection withrubella virus.THIS TEST WAS PERFORMED AT:[facility] [address]KJIEAN MERATI,MDResponsible Observer: Rubella IgG Ab Rubella IgG Ab [id number] 911.2840 ([facility]) HIV1 Ab SerPlBld Ql IA.rapid See Note None Note: TNPNo Reportable ResultLTNPNo Repo rtable ResultLLEP.LIVENTNPResponsible Observer: HIV 1 AB HIV 1 AB [id number] 908.0250 ([facility]) HBsAg Confirmation See Note None Note: TNPNo Reportable ResultLTNPNo Repo rtable ResultLLEP.LIVENTNPResponsible Observer: HBsAg Confirm HBsAg Confirmation [id number] 910.2007 ([facility]) HIV (1&2) Screen, 4th Gen NON-REACTIVE [...] for this purpose.For additional information please refer tohttp://education.[employer] [place].BABADU/faq/KLG736(This link is being provided for informational/educational purposes only.)The performance of this assay has not been clinicallyvalidated in patients less than 2 years old.THIS TEST WAS PERFORMED AT:[facility] [address]UJINWP NABILDORIE,CLAUDYesponsible Observer: HIV ABS HIV (1&2) Screen, 4th Gen [id number] 908.0228 ([facility]) Reviewed by Cat Gutierrez RPA on 08/14; All test results are final unless otherwise noted. Reported Physicians [facility] Ordered by Cat Gutierrez RPA on 08/09/2020 Collected: 08/09/2020 Reported: 08/13/2020 15:27 Reported Physicians See Note None Note: Reported Physicians:Ordering: Atte nding: Rigo Gutierrez To: Maya Barron Reviewed by Cat Gutierrez RPA on 08/14; All test results are final unless otherwise noted. BHCG, QUANTITATIVE [facility] Ordered by Cat Gutierrez RPA on 08/08/2020 Collected: 08/08/2020 Reported: 08/08/2020 11:53 B-HCG [facility] [address] MilliInternationalUnitsPerMilliLiter_[Arbitrary_Con (0-10) H (High) Note: @Instrument will [...] are final unless otherwise noted. Reported Physicians [facility] Ordered by Cat Gutierrez RPA on 08/08/2020 Collected: 08/08/2020 Reported: 08/08/2020 11:54 Reported Physicians See Note None Note: Reported Physicians:Ordering: Jannet barton: Rigo Gutierrez To: Maya Barron Reviewed by Cat Gutierrez RPA on 08/08; All test results are final unless otherwise noted. Type and Screen [facility] Ordered by Cat Gutierrez RPA on [...] are final unless otherwise noted. Reported Physicians [facility] Ordered by Cat Gutierrez RPA on 08/01/2020 Collected: 08/01/2020 Reported: 08/01/2020 06:03 Reported Physicians See Note None Note: Reported Physicians:Ordering: Aj Ferreiraending: Jos Rivas To: Maya Barron Reviewed by Cat Gutierrez RPA on 08/01; All test results are final unless otherwise noted. BHCG, QUANTITATIVE [facility] Ordered by Cat Gutierrez RPA on 08/01/2020 Collected: 08/01/2020 Reported: 08/01/2020 02:26 [facility] [address] MilliInternationalUnitsPerMilliLiter_[Arbitrary_Con (0-10) H (High) Note: @Instrument will [...] are final unless otherwise noted. Reported Physicians [facility] Ordered by Cat Gutierrez RPA on 08/01/2020 Collected: 08/01/2020 Reported: 08/01/2020 02:26 Reported Physicians See Note None Note: Reported Physicians:Ordering: Aj Ferreiraending: Jos Rivas To: Maya Barron Reviewed by Cat Gutierrez RPA on 08/01; All test results are final unless otherwise noted. 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 [facility] Ordered by Cat Gutierrez [...] are final unless otherwise noted. Reported Physicians [facility] Ordered by Cat Gutierrez RPA on 08/01/2020 Collected: 08/01/2020 Reported: 08/01/2020 02:26 Reported Physicians See Note None Note: Reported Physicians:Ordering: Aj Ferreriaending: Jos Rivas To: Maya Barron Reviewed by Cat Gutierrez RPA on 08/01; All test results are final unless otherwise noted. ADD ON MICROSCOPIC [facility] Ordered by Cat Gutierrez RPA on 08/01/2020 Collected: 08/01/2020 Reported: 08/01/2020 01:01 ADD ON MICROSCOPIC See Note (0-5) None Note: NOTES OTHER/NOT INTERPRETED Bacteria UrnS Ql Micro MODERATE AMOUNT Bacteria UrnS Ql Micro MODERATE AMOUNT Bacteria UrnS Ql Micro L Bacteria UrnS Ql Micro Bacteria UrnS Ql Micro Bacteria UrnS Ql Micro Bacteria UrnS Ql Micro [id number] Bacteria UrnS Ql Micro Bacteria UrnS Ql [...] 0048: UA W/ MICRO added. RFLXG = [facility] CIF.Method of Collection:: VoidedResponsible Observer: RBC RBC 300.4900 (A) Reviewed by Cat Gutierrez RPA on 08/01; All test results are final unless otherwise noted. Reported Physicians [facility] Ordered by Cat Gutierrez RPA on 08/01/2020 Collected: 08/01/2020 Reported: 08/01/2020 01:01 Reported Physicians See Note None Note: Reported Physicians:Ordering: Cristino FerreiraAttending: Jos Rivas To: Maya Barron Reviewed by Cat Gutierrez RPA on 08/01; All test results are final unless otherwise noted. UA W/ CULTURE IF ABNORMAL [facility] Ordered by Cat Gutierrez RPA on 08/01/2020 Collected: 08/01/2020 Reported: 08/01/2020 01:01 Urobilinogen Ur Ql See Note (0.2-1 EU/dl) None Note: 0.2 EU/dl0.2 EU/mgL71380901857.2 E U/dlResponsible Observer: UROBILINOGEN UROBILINOGEN 300.4500 (C) RBC # Ur Strip SMALL (NEGATIVE) None Note: @DO MICRO!!!!Responsible Observer: BLOOD BLOOD 300.4652 (C) Prot Ur Ql Strip See Note (NEGATIVE) None Note: [id number] EResponsible Observer: PROTEIN PROTEIN 300.3750 (C) Ketones Ur Ql Strip See Note (NEGATIVE) None Note: 15 mg/dL15 mg/oKW609800447433 mg/d LResponsible Observer: KETONE KETONE 300.3900 (C) Bilirub Ur Ql Strip.auto See Note (NEGATIVE) None Note: [id number] EResponsible Observer: BILIRUBIN BILIRUBIN 300.4550 (C) Glucose Ur Strip.auto-mCnc NEGATIVE (NEGATIVE) None Note: Responsible Observer: GLUCOSE GLUC OSE 300.3850 (C) Appearance Ur See Note (CLEAR) None Note: CLEARCLEARLCLEARResponsible Observ er: APPEARANCE APPEARANCE 300.3400 (A) Color Ur See Note None Note: YELLOWYELLOWLYELLOWResponsible Obs erver: COLOR COLOR 300.3330 (A) Leukocyte esterase Ur Ql Strip See Note (NEGATIVE) None Note: [id number]@DO MICR O!!!!A Culture has been added to this specimen per established criteriaResponsible Observer: LEUKOCYTES LEUKOCYTES 300.3576 (C) Nitrite Ur Ql Strip See Note (NEGATIVE) None Note: [id number] EResponsible Observer: NITRITE NITRITE 300.3652 (B) pH [...] are final unless otherwise noted. Urine culture [facility] Ordered by Cat Gutierrez RPA on 08/01/2020 Collected: 08/01/2020 Reported: 08/02/2020 07:41 Urine culture result See Note None Note: Greater than 100,000 CFU/MLLactoba cilli no senst done NOTES See Note None Note: @08/01/20 0101: Urine culture addchandler sawyer RFLXG = CULT.ADD. Reviewed by Cat Gutierrez RPA on 08/02; All test results are final unless otherwise noted. Reported Physicians [facility] Ordered by Cat Gutierrez RPA on 08/01/2020 Collected: 08/01/2020 Reported: 08/02/2020 07:41 Reported Physicians See Note None Note: Reported Physicians:Ordering: Aj Ferreiraending: Jos Rivas To: Maya Barron Reviewed by Cat Gutierrez RPA on 08/02; All test results are final unless otherwise noted. BHCG, QUANTITATIVE [facility] Ordered by Cat Gutierrez RPA on 07/31/2020 Collected: 07/31/2020 Reported: 07/31/2020 16:53 B-HCG [facility] [address] MilliInternationalUnitsPerMilliLiter_[Arbitrary_Con (0-10) H (High) Note: @Instrument will [...] are final unless otherwise noted. Reported Physicians [facility] Ordered by Cat Gutierrez RPA on 07/31/2020 Collected: 07/31/2020 Reported: 07/31/2020 16:53 Reported Physicians See Note None Note: Reported Physicians:Ordering: Jannet barton: Cat Gutierrez Reviewed by Cat Gutierrez RPA on 08/01; All test results are final unless otherwise noted. ADD ON MICROSCOPIC [facility] Ordered by Cat Gutierrez RPA on 07/27/2020 Collected: 07/27/2020 Reported: 07/27/2020 21:36 ADD ON MICROSCOPIC See Note (0-5) None Note: NOTES OTHER/NOT INTERPRETED Bacteria UrnS Ql Micro SMALL AMOUNT Bacteria UrnS Ql Micro SMALL AMOUNT Bacteria UrnS Ql Micro L Bacteria UrnS Ql Micro Bacteria UrnS Ql Micro Bacteria UrnS Ql Micro Bacteria UrnS Ql Micro [id number] Bacteria UrnS Ql Micro Bacteria UrnS Ql [...] are final unless otherwise noted. Reported Physicians [facility] Ordered by Cat Gutierrez RPA on 07/27/2020 Collected: 07/27/2020 Reported: 07/27/2020 21:37 Reported Physicians See Note None Note: Reported Physicians:Ordering: Daquan BustamanteAttending: Ariella Good To: Maya Barron Reviewed by Cat Gutierrez RPA on 07/28; All test results are final unless otherwise noted. UA W/ CULTURE IF ABNORMAL [facility] Ordered by Cat Gutierrez RPA on 07/27/2020 Collected: 07/27/2020 Reported: 07/27/2020 21:36 Urobilinogen Ur Ql See Note (0.2-1 EU/dl) None Note: 0.2 EU/dl0.2 EU/xxE62560800876.2 E U/dlResponsible Observer: UROBILINOGEN UROBILINOGEN 300.4500 (C) RBC # Ur Strip NEGATIVE (NEGATIVE) None Note: Responsible Observer: BLOOD BLOOD 300.4652 (C) Prot Ur Ql Strip See Note (NEGATIVE) None Note: [id number] EResponsible Observer: PROTEIN PROTEIN 300.3750 (C) Ketones Ur Ql Strip See Note (NEGATIVE) None Note: [id number] EResponsible Observer: KETONE KETONE 300.3900 (C) Bilirub Ur Ql Strip.auto See Note (NEGATIVE) None Note: [id number] EResponsible Observer: BILIRUBIN BILIRUBIN 300.4550 (C) Glucose Ur Strip.auto-mCnc NEGATIVE (NEGATIVE) None Note: Responsible Observer: GLUCOSE GLUC OSE 300.3850 (C) Appearance Ur See Note (CLEAR) None Note: CLEARCLEARLCLEARResponsible Observ er: APPEARANCE APPEARANCE 300.3400 (A) Color Ur See Note None Note: YELLOWYELLOWLYELLOWResponsible Obs erver: COLOR COLOR 300.3330 (A) Leukocyte esterase Ur Ql Strip See Note (NEGATIVE) None Note: [id number]@DO MICR O!!!!A Culture has been added to this specimen per established criteriaResponsible Observer: LEUKOCYTES LEUKOCYTES 300.3576 (C) Nitrite Ur Ql Strip See Note (NEGATIVE) None Note: [id number] EResponsible Observer: NITRITE NITRITE 300.3652 (B) pH [...] are final unless otherwise noted. Urine culture [facility] Ordered by Cat Gutierrez RPA on 07/27/2020 Collected: 07/27/2020 Reported: 07/29/2020 07:36 Urine culture result 50,000 CFU/ML Lactobacilli no senst done None NOTES See Note None Note: @07/27/202136: Urine culture adde digna RFLXG = CULT.ADD. Reviewed by Cat Gutierrez RPA on 07/31; All test results are final unless otherwise noted. Reported Physicians [facility] Ordered by Cat Gutierrez [facility] on 07/27/2020 Collected: 07/27/2020 Reported: 07/29/2020 07:37 Reported Physicians See Note None Note: Reported Physicians:Ordering: Daquan BustamanteAttending: Ariella Good To: Maya Barron Reviewed by Cat Gutierrez RPA on 07/31; All test results are final unless otherwise noted. 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 Reported Physicians [facility] Ordered by Cat Gutierrez RPA on 07/27/2020 Collected: 07/27/2020 Reported: 07/27/2020 20:11 Reported Physicians See Note None Note: Reported Physicians:Ordering: Daquan BustamanteAttending: Daquan GoodCopy To: Maya Barron Reviewed by Cat Gutierrez RPA on 07/28; All test results are final unless otherwise noted. Type and Screen [facility] Ordered by Cat Gutierrez RPA on [...] are final unless otherwise noted. Reported Physicians [facility] Ordered by Cat Gutierrez RPA on 07/27/2020 Collected: 07/27/2020 Reported: 07/27/2020 20:48 Reported Physicians See Note None Note: Reported Physicians:Ordering: Brad Bustamanteending: Ariella Good To: Maya Barron Reviewed by Cat Gutierrez RPA on 07/28; All test results are final unless otherwise noted. [facility] Ordered by Cat Gutierrez [...] are final unless otherwise noted. Reported Physicians [facility] Ordered by Cat Gutierrez RPA on 07/27/2020 Collected: 07/27/2020 Reported: 07/27/2020 20:37 Reported Physicians See Note None Note: Reported Physicians:Ordering: Daquan BustamanteAttending: Ariella Good To: Maya Barron Reviewed by Cat Gutierrez RPA on 07/28; All test results are final unless otherwise noted. [facility] [place] Ordered by Cat Gutierrez [facility] on 07/27/2020 Collected: 07/27/2020 Reported: 07/27/2020 [...] 1,000 - 50,000Responsible Observer: [facility] [place], QUANTITATIVE 600.5006 (G) Reviewed by Cat Gutierrez [facility] on 07/28; All test results are final unless otherwise noted. Reported Physicians [facility] Ordered by Cat Gutierrez [facility] on 07/27/2020 Collected: 07/27/2020 Reported: 07/27/2020 22:08 Reported Physicians See Note None Note: Reported Physicians:Ordering: Daquan BustamanteAttending: Daquan GoodCopyifan To: Maya Barron Reviewed by Cat Brenda [facility] on 07/28; All test results are final unless otherwise noted. [facility], QUANTITATIVE [facility] Ordered by Maya Barron MD on [...] are final unless otherwise noted. Reported Physicians [facility] Ordered by Maya Barron MD on 07/26/2020 Collected: 07/26/2020 Reported: 07/26/2020 16:48 Reported Physicians See Note None Note: Reported Physicians:Ordering: Maya AlvarengaAttending: Maya Barron Reviewed by Maya Barron MD on 07/27; All test results are final unless otherwise noted. Sweta Raquel SARS/FLU [facility] Ordered by Bandar [place] PA-C on 07/25/2020 Collected: 07/25/2020 Reported: 07/25/2020 18:47 Sweta Raquel SARS/FLU See Note None Note: Sweta Raquel is a rapid, automated q ualitative anddifferentiation of Influenza type A,B and ELFP-WTS-1GGRG-RT-PCR testNORMAL VALUE IS "NOT DETECTED".Limitations of the sweta raquel Influenza A/B & UMEX-NHX-2xbsku method.Modifications to manufacturers recommendation and proceduresmay alter performance of the test.Negative results do not preclude Influenza A,B or SARS- HBR5wvndtxxuvi and should not be used as the [...] out diseases caused by other bacterialor viral pathogens.[id number]-KtK-0 RNA Resp Ql ТАТЬЯНА+probeLNNOSNo O rganisms [id number] Organisms Detected Reviewed by Bandar Cleveland PA-C on ; All test results are final unless otherwise noted. Reported Physicians [facility] Ordered by Bandar Cleveland PA-C on 07/25/2020 Collected: 07/25/2020 Reported: 07/25/2020 18:47 Reported Physicians See Note None Note: Reported Physicians:Ordering: Janice Wilsonending: Kami Cleveland To: Health, Public Reviewed by Bandar Cleveland PA-C on ; All test results are final unless otherwise noted. Extended hours FLU/COV2 NAAT [facility] Ordered by Bandar Cleveland PA-C on 07/25/2020 Collected: 07/25/2020 Reported: 07/25/2020 18:47 Extended hours FLU/COV2 NAAT See Note None Note: TNPNo Reportable ResultLTNPNo Repo rtable [id number] Reviewed by Bandar Cleveland PA-C on ; All test results are final unless otherwise noted. Reported Physicians [facility] Ordered by Bandar Cleveland PA-C on 07/25/2020 Collected: 07/25/2020 Reported: 07/25/2020 18:47 Reported Physicians See Note None Note: Reported Physicians:Ordering: Janice Wilsonending: Kami Cleveland To: Health, Public Reviewed by Bandar Cleveland PA-C on ; All test results are final unless otherwise noted. 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 [facility] Ordered by Maya Barron [...] are final unless otherwise noted. Reported Physicians [facility] Ordered by Maya Barron MD on 07/22/2020 Collected: 07/22/2020 Reported: 07/22/2020 02:00 Reported Physicians See Note None Note: Reported Physicians:Ordering: Hong LandaverdeAttending: Alon Douglas To: Maya Barron Reviewed by Maya Barron MD on 07/24; All test results are final unless otherwise noted. Extended hours FLU/COV2 NAAT [facility] Ordered by Maya Barron MD on 07/22/2020 Collected: 07/22/2020 Reported: 07/22/2020 01:29 Extended hours FLU/COV2 NAAT See Note None Note: TNPNo Reportable ResultLTNPNo Repo rtable [id number] Reviewed by Maya Barron MD on 07/24; All test results are final unless otherwise noted. Reported Physicians [facility] Ordered by Maya Barron MD on 07/22/2020 Collected: 07/22/2020 Reported: 07/22/2020 01:29 Reported Physicians See Note None Note: Reported Physicians:Ordering: Hong LandaverdeAttending: Alon Douglas To: Maya Barron Reviewed by Maya Barron MD on 07/24; All test results are final unless otherwise noted. Sweta Raquel SARS/FLU [facility] Ordered by Maya Barron MD on 07/22/2020 Collected: 07/22/2020 Reported: 07/22/2020 01:29 Sweta Raquel SARS/FLU See Note None Note: Sweta Raquel is a rapid, automated q ualitative anddifferentiation of Influenza type A,B and OIFD-UDC-1HNDP-RT-PCR testNORMAL VALUE IS "NOT DETECTED".Limitations of the sweta raquel Influenza A/B & ZEUW-JXE-9jqbgo method.Modifications to manufacturers recommendation and proceduresmay alter performance of the test.Negative results do not preclude Influenza A,B or SARS- ROJ5ihbkqqghny and should not be used as the [...] out diseases caused by other bacterialor viral pathogens.68952-3QTVQ-UpL-4 RNA Resp Ql ТАТЬЯНА+probeLNNOSNo O rganisms [id number] Organisms Detected Reviewed by Maya Barron MD on 07/24; All test results are final unless otherwise noted. Reported Physicians [facility] Ordered by Maya Barron MD on 07/22/2020 Collected: 07/22/2020 Reported: 07/22/2020 01:29 Reported Physicians See Note None Note: Reported Physicians:Ordering: Dominic Landaverdeending: Alon Douglas To: Maya Barron Reviewed by Maya Barron MD on 07/24; All test results are final unless otherwise noted. UA W/ CULTURE IF ABNORMAL [facility] Ordered by Maya Barron MD on 07/22/2020 Collected: 07/22/2020 Reported: 07/22/2020 01:10 Urobilinogen Ur Ql See Note (0.2-1 EU/dl) None Note: 0.2 EU/dl0.2 EU/[id number] E U/dlResponsible Observer: UROBILINOGEN UROBILINOGEN 300.4500 (C) RBC # Ur Strip NEGATIVE (NEGATIVE) None Note: Responsible Observer: BLOOD BLOOD 300.4652 (C) Prot Ur Ql Strip See Note (NEGATIVE) None Note: [id number] EResponsible Observer: PROTEIN PROTEIN 300.3750 (C) Ketones Ur Ql Strip See Note (NEGATIVE) None Note: [id number] EResponsible Observer: KETONE KETONE 300.3900 (C) Bilirub Ur Ql Strip.auto See Note (NEGATIVE) None Note: [id number] EResponsible Observer: BILIRUBIN BILIRUBIN 300.4550 (C) Glucose Ur Strip.auto-mCnc NEGATIVE (NEGATIVE) None Note: Responsible Observer: GLUCOSE GLUC OSE 300.3850 (C) Appearance Ur See Note (CLEAR) None Note: CLEARCLEARLCLEARResponsible Observ er: APPEARANCE APPEARANCE 300.3400 (A) Color Ur See Note None Note: YELLOWYELLOWLYELLOWResponsible Obs erver: COLOR COLOR 300.3330 (A) Leukocyte esterase Ur Ql Strip See Note (NEGATIVE) None Note: [id number] EResponsible Observer: LEUKOCYTES LEUKOCYTES 300.3576 (C) Nitrite Ur Ql Strip See Note (NEGATIVE) None Note: [id number] EResponsible Observer: NITRITE NITRITE 300.3652 (B) pH [...] are final unless otherwise noted. Reported Physicians [facility] Ordered by Maya Barron MD on 07/22/2020 Collected: 07/22/2020 Reported: 07/22/2020 01:11 Reported Physicians See Note None Note: Reported Physicians:Ordering: Hong LandaverdeAttending: Alon Douglas To: Maya Barron Reviewed by Maya Barron MD on 07/24; All test results are final unless otherwise noted. Urine culture [facility] Ordered by Maya Barron MD on 07/19/2020 Collected: 07/19/2020 Reported: 07/21/2020 07:48 Bacteria Ur Cult See Note None Note: NGNo growth.L1NG Reviewed by Maya Barron MD on 07/21; All test results are final unless otherwise noted. Reported Physicians [facility] Ordered by Maya Barron MD on 07/19/2020 Collected: 07/19/2020 Reported: 07/21/2020 07:49 Reported Physicians See Note None Note: Reported Physicians:Ordering: Maya AlvarengaAttending: Maya Barron Reviewed by Maya Barron MD on 07/21; All test results are final unless otherwise noted. BHCG, QUANTITATIVE [facility] Ordered by Maya Barron MD on [...] are final unless otherwise noted. Reported Physicians [facility] Ordered by Maya Barron MD on 07/17/2020 Collected: 07/17/2020 Reported: 07/17/2020 12:40 Reported Physicians See Note None Note: Reported Physicians:Ordering: Maya AlvarengaAttending: Maya Barron Reviewed by Maya Barron MD on 07/17; All test results are final unless otherwise noted. [employer] COVID-19 SCHOOL [facility] Ordered by Maya Barron MD on 05/31/2020 Collected: 05/31/2020 Reported: 05/31/2020 07:08 [facility] COVID-19 [facility] See Note None Note: [employer] COVID-19 IS [...] NOT APPROPRIATE FOR USE INTHIS TEST.NOSNo Organisms [id number] Organisms Detected Reviewed by Maya Barron MD on 05/31; All test results are final unless otherwise noted. Reported Physicians [facility] Ordered by Maya Barron MD on 05/31/2020 Collected: 05/31/2020 Reported: 05/31/2020 07:08 Reported Physicians See Note None Note: Reported Physicians:Ordering: Johnny HernándezAttending: Suzanne Cazares To: Maya Barron Reviewed by Maya Barron MD on 05/31; All test results are final unless otherwise noted. BHCG, QUANTITATIVE [facility] Ordered by Maya Barron MD on 05/26/2020 Collected: 05/26/2020 Reported: 05/26/2020 14:49 B-HCG [facility] [address] MilliInternationalUnitsPerMilliLiter_[Arbitrary_Con (0-10) H (High) Note: @Instrument will [...] are final unless otherwise noted. Reported Physicians [facility] Ordered by Maya Barron MD on 05/26/2020 Collected: 05/26/2020 Reported: 05/26/2020 14:50 Reported Physicians See Note None Note: Reported Physicians:Ordering: Maya AlvarengaAttending: Maya Barron Reviewed by Maya Barron MD on 05/26; All test results are final unless otherwise noted. URINALYSIS [facility] Ordered by Maya Barron MD on 05/23/2020 Collected: 05/23/2020 Reported: 05/23/2020 17:19 Urobilinogen Ur Ql See Note (0.2-1 EU/dl) None Note: 0.2 EU/dl0.2 EU/[id number] E U/dlResponsible Observer: UROBILINOGEN UROBILINOGEN 300.4500 (C) RBC # Ur Strip NEGATIVE (NEGATIVE) None Note: Responsible Observer: BLOOD BLOOD 300.4650 (C) Prot Ur Ql Strip See Note (NEGATIVE) None Note: [id number] EResponsible Observer: PROTEIN PROTEIN 300.3750 (C) Ketones Ur Ql Strip See Note (NEGATIVE) None Note: [id number] EResponsible Observer: KETONE KETONE 300.3900 (C) Bilirub Ur Ql Strip.auto See Note (NEGATIVE) None Note: [id number] EResponsible Observer: BILIRUBIN BILIRUBIN 300.4550 (C) Glucose Ur Strip.auto-mCnc NEGATIVE (NEGATIVE) None Note: Responsible Observer: GLUCOSE GLUC OSE 300.3850 (C) Appearance Ur See Note (CLEAR) None Note: CLEARCLEARLCLEARResponsible Observ er: APPEARANCE APPEARANCE 300.3400 (A) Color Ur See Note None Note: YELLOWYELLOWLYELLOWResponsible Obs erver: COLOR COLOR 300.3300 (A) Leukocyte esterase Ur Ql Strip See Note (NEGATIVE) None Note: [id number] EResponsible Observer: LEUKOCYTES LEUKOCYTES 300.3575 (C) Nitrite Ur Ql Strip See Note (NEGATIVE) None Note: [id number] EResponsible Observer: NITRITE NITRITE 300.3650 (B) pH Ur Strip 6.5 (5-8) None Note: Responsible Observer: PH PH 300.3 450 (C) Sp Gr Ur Refractometry 1.002 (1.005-1.030) None Note: Responsible Observer: SP GRAVITY U RINE SPECIFIC GRAVITY-MAN 300.3475 (C) URINE MICROSCOPIC ADDED NO None Note: Responsible Observer: UA URINE SHAWN ROSCOPIC PENDING 300.3822 (D) NOTES See Note None Note: Method of Collection:: Clean Catch Reviewed by Maya Barron MD on 05/29; All test results are final unless otherwise noted. Urine culture [facility] Ordered by Maya Barron MD on 05/23/2020 Collected: 05/23/2020 Reported: 05/24/2020 09:24 Bacteria Ur Cult See Note None Note: NGNo growth.L1NG Reviewed by Maya Barron MD on 05/29; All test results are final unless otherwise noted. MEDMATCH [facility] Ordered by Maya Barron MD on 05/23/2020 Collected: 05/23/2020 Reported: 05/26/2020 17:09 MEDMATCH 1.000 (> or = 1.003) None Note: Responsible Observer: MEDMATCH MED MATCH 910.39901 ([facility]) Reviewed by Maya Barron MD on 05/29; All test results are final unless otherwise noted. Reported Physicians [facility] Ordered by Maya Barron MD on 05/23/2020 Collected: 05/23/2020 Reported: 05/26/2020 17:09 Reported Physicians See Note None Note: Reported Physicians:Ordering: Maya AlvarengaAttending: Maya Barron Reviewed by Maya Barron MD on 05/29; All test results are final unless otherwise noted. Varicella-Zoster IgG Antibody [facility] Ordered by Maya Barron MD on 05/23/2020 Collected: 05/23/2020 Reported: 05/25/2020 17:11 VZV IgG Ser [place] 244.10 None Note: Index Interpr etation --------- [...] Antibody Immunity Screen, ACIF.THIS TEST WAS PERFORMED AT:[facility] [id number] ME RATI,MDResponsible Observer: VARICELLA IGG Varicella-Zoster IgG Antibody [id number] 342.2898 ([place]) NOTES See Note None Note: Patient Street Address: [facility] [address] City: [facility] State: [facility] Zip Code: [address] Reviewed by Maya Barron MD on 05/26; All test results are final unless otherwise noted. Reported Physicians [facility] Ordered by Maya Barron MD on 05/23/2020 Collected: 05/23/2020 Reported: 05/25/2020 17:11 Reported Physicians See Note None Note: Reported Physicians:Ordering: Maya AlvarengaAttending: Maya Barron Reviewed by Maya Barron MD on 05/26; All test results are final unless otherwise noted. 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 TSH [facility] Ordered by Maya Barron MD on 05/23/2020 Collected: 05/23/2020 Reported: 05/23/2020 18:38 TSH SerPl DL<=0.005 mIU/L-aCnc 1.87 MicroInternationalUnitsPerMilliLiter_[Arbitrary_Con (0.35-5. 50) N (Normal) Note: Responsible Observer: TSH TSH 600 .7055 (D) Reviewed by Maya Barron MD on 05/29; All test results are final unless otherwise noted. Lead (Venous) Wh.Bld [facility] Ordered by Maya Barron MD on 05/23/2020 Collected: 05/23/2020 Reported: 05/25/2020 17:11 Lead Bld-sCnc <1 (<5) None Note: See Note 1Note 1This test was [employer] and its analytical performancecharacteristics have been determined by [employer]. It has not been cleared or approved by theA. This assay has been validated pursuant to the CLIAregulations and is used for clinical purposes.THIS TEST WAS PERFORMED AT:[facility] [address]FAIYRO MERATI,MDResponsible Observer: Lead, WB Lead, Whole Blood [id number] 911.2190 ([facility]) NOTES See Note None Note: Patient Street Address: [address] [facility] Zip Code: [address] Reviewed by Maya Barron MD on 05/29; All test results are final unless otherwise noted. ndPN REF [facility] Ordered by Maya Barron MD on 05/23/2020 Collected: 05/23/2020 Reported: 05/27/2020 20:54 T pallidum Ab Ser Ql Aggl See Note (Nonreactive) None Note: [id number] onreactiveResponsible Observer: TP-PA Treponema pallidum Ab (TP-PA) [id number] 908.0286 ([facility]) HIV1 RNA SerPl Ql ТАТЬЯНА+probe See Note None Note: TNPNo Reportable ResultLTNPNo Repo rtable ResultLLEP.LIVENTNPResponsible Observer: HIV 1 RNA, QL T HIV 1 RNA, QL TMA [id number] 908.0254 ([facility]) HBV surface Ag SerPl Ql IA See Note (NON-REACTIVE) None Note: [id number] 0NON-REACTIVEResponsible Observer: HBSAG Hepatitis B Surface Antigen [id number] 910.2004 ([facility]) RUBV IgG SerPl IA-aCnc 1.80 None Note: Index Interpretatio n ----- <0.90 Not consistent with Immunity 0.90-0.99 Equivocal > or = 1.00 Consistent with ImmunityThe presence of rubella IgG antibody suggestsimmunization or past or current infection withrubella virus.THIS TEST WAS PERFORMED AT:[facility] [address]UWSCMI MERATI,MDResponsible Observer: Rubella IgG Ab Rubella IgG Ab [id number] 911.2840 ([facility]) HIV1 Ab SerPlBld Ql IA.rapid See Note None Note: TNPNo Reportable ResultLTNPNo Repo rtable ResultLLEP.LIVENTNPResponsible Observer: HIV 1 AB HIV 1 AB [id number] 908.0250 ([facility]) HBsAg Confirmation See Note None Note: TNPNo Reportable ResultLTNPNo Repo rtable ResultLLEP.LIVENTNPResponsible Observer: HBsAg Confirm HBsAg Confirmation [id number] 910.2006 ([facility]) HIV (1&2) Screen, 4th Gen [...] for this purpose.For additional information please refer tohttp://education.[employer].BABADU/faq/YVG326(This link is being provided for informational/educational purposes only.)The performance of this assay has not been clinicallyvalidated in patients less than 2 years old.Responsible Observer: HIV ABS HIV (1&2) Screen, 4th Gen [id number] 908.0228 (I) Reviewed by Maya Barron MD on 05/29; All test results are final unless otherwise noted. Reported Physicians [facility] Ordered by Maya Barorn MD on 05/23/2020 Collected: 05/23/2020 Reported: 05/27/2020 20:54 Reported Physicians See Note None Note: Reported Physicians:Ordering: Maya AlvarengaAttending: Maya Barron Reviewed by Maya Barron MD on 05/29; All test results are final unless otherwise noted. HCV RFX ТАТЬЯНА [facility] Ordered by Maya Barron MD on 05/23/2020 Collected: 05/23/2020 Reported: 05/25/2020 17:11 HCV Ab Ser Ql See Note (NON-REACTIVE) None Note: [id number] 7NON-REACTIVEResponsible Observer: HEP C ANTIBODY Hepatitis C Antibody [id number] 914.8305 ([place]) HCV RNA Qualitative (ТАТЬЯНА) 0.59 (<1.00) None Note: HCV antibody was non-reactive. The re is no laboratoryevidence of HCV infection.In most cases, no further action is required. However,if recent HCV exposure is suspected, a test for HCV RNA(test code 79966) is suggested.For additional information please refer tohttp://education.[employer]/faq/LCY29d5(This link is being provided for informational/educational purposes only.)THIS TEST WAS PERFORMED AT:[facility] [address]KAMBGRACE MEANSMDResponsible Observer: SIG TO C/O SIGNAL TO CUTOFF [id number] 914.8378 ([place]) NOTES See Note None Note: Patient Street Address: [facility] [address] City: [facility] State: [facility] Zip Code: [address] Reviewed by Maya Barron MD on 05/26; All test results are final unless otherwise noted. Reported Physicians [facility] Ordered by Maya Barron MD on 05/23/2020 Collected: 05/23/2020 Reported: 05/25/2020 17:11 Reported Physicians See Note None Note: Reported Physicians:Ordering: Maya AlvarengaAttending: Maya Barron Reviewed by Maya Barron MD on 05/26; All test results are final unless otherwise noted. Type and Screen [facility] Ordered by Maya Barron MD on [...] are final unless otherwise noted. Reported Physicians [facility] Ordered by Maya Barron MD on 05/23/2020 Collected: 05/23/2020 Reported: 05/23/2020 19:32 Reported Physicians See Note None Note: Reported Physicians:Ordering: Maya AlvarengaAttending: Maya Barron Reviewed by Maya Barron MD on 05/24; All test results are final unless otherwise noted. PROGESTERONE [facility] Ordered by Maya Barron MD on [...] are final unless otherwise noted. Reported Physicians [facility] Ordered by Maya Barron MD on 04/27/2020 Collected: 04/27/2020 Reported: 04/27/2020 15:58 Reported Physicians See Note None Note: Reported Physicians:Ordering: Johnny HernándezAttending: Cristino CastellanosCopyifan To: Rubén Barron To: Cristino Castellanos Reviewed by Maya Barron MD on 04/30; All test results are final unless otherwise noted. BHCG, QUANTITATIVE [facility] Ordered by Maya Barron MD on [...] are final unless otherwise noted. Reported Physicians [facility] Ordered by Maya Barron MD on 04/27/2020 Collected: 04/27/2020 Reported: 04/27/2020 14:40 Reported Physicians See Note None Note: Reported Physicians:Ordering: Aj Snowending: Jos Castellanos To: Suzanne Cazares To: Maya Barron Reviewed by Maya Barron MD on 04/30; All test results are final unless otherwise noted. 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 [facility] Ordered by Maya [...] are final unless otherwise noted. Reported Physicians [facility] Ordered by Maya Barron MD on 04/25/2020 Collected: 04/25/2020 Reported: 04/25/2020 22:11 Reported Physicians See Note None Note: Reported Physicians:Ordering: Aj Ferreiraending: Jos Rivas To: Maya Barron Reviewed by Maya Barron MD on 04/26; All test results are final unless otherwise noted. BHCG, QUANTITATIVE [facility] Ordered by Maya Barron MD on [...] are final unless otherwise noted. Reported Physicians [facility] Ordered by Maya Barrno MD on 04/25/2020 Collected: 04/25/2020 Reported: 04/25/2020 22:11 Reported Physicians See Note None Note: Reported Physicians:Ordering: Aj Ferreiraending: Jos Rivas To: Maya Barron Reviewed by Maya Barron MD on 04/26; All test results are final unless otherwise noted. Urine culture [facility] Ordered by Maya Barron MD on 04/25/2020 Collected: 04/25/2020 Reported: 04/27/2020 04:50 Bacteria Ur Cult See Note None Note: NGNo growth.L1NG NOTES See Note None Note: @ NICOLE DATE was changed from 04/26 to 04/25/20@ by POMCY. Reviewed by Maya Barron MD on 04/30; All test results are final unless otherwise noted. Reported Physicians [facility] Ordered by Maya Barron MD on 04/25/2020 Collected: 04/25/2020 Reported: 04/27/2020 04:51 Reported Physicians See Note None Note: Reported Physicians:Ordering: Cristino FerreiraAttending: Jos Rivas To: Maya Barron Reviewed by Maya Barron MD on 04/30; All test results are final unless otherwise noted. ADD ON MICROSCOPIC [facility] Ordered by Maya Barron MD on 04/25/2020 Collected: 04/25/2020 Reported: 04/25/2020 21:54 ADD ON MICROSCOPIC See Note (0-5) None Note: NOTES OTHER/NOT INTERPRETED Bacteria UrnS Ql Micro SMALL AMOUNT Bacteria UrnS Ql Micro SMALL AMOUNT Bacteria UrnS Ql Micro L Bacteria UrnS Ql Micro Bacteria UrnS Ql Micro Bacteria UrnS Ql Micro Bacteria UrnS Ql Micro [id number] Bacteria UrnS Ql Micro Bacteria UrnS Ql [...] are final unless otherwise noted. Reported Physicians [facility] Ordered by Maya Barron MD on 04/25/2020 Collected: 04/25/2020 Reported: 04/25/2020 21:54 Reported Physicians See Note None Note: Reported Physicians:Ordering: Aj Ferreiraending: Jos Rivas To: Maya Barron Reviewed by Maya Barron MD on 04/26; All test results are final unless otherwise noted. URINALYSIS [facility] Ordered by Maya Barron MD on 04/25/2020 Collected: 04/25/2020 Reported: 04/25/2020 21:54 Urobilinogen Ur Ql See Note (0.2-1 EU/dl) None Note: 0.2 EU/dl0.2 EU/[id number] E U/dlResponsible Observer: UROBILINOGEN UROBILINOGEN 300.4500 (C) RBC # Ur Strip NEGATIVE (NEGATIVE) None Note: Responsible Observer: BLOOD BLOOD 300.4650 (C) Prot Ur Ql Strip See Note (NEGATIVE) None Note: [id number] EResponsible Observer: PROTEIN PROTEIN 300.3750 (C) Ketones Ur Ql Strip See Note (NEGATIVE) None Note: [id number] EResponsible Observer: KETONE KETONE 300.3900 (C) Bilirub Ur Ql Strip.auto See Note (NEGATIVE) None Note: [id number] EResponsible Observer: BILIRUBIN BILIRUBIN 300.4550 (C) Glucose Ur Strip.auto-mCnc NEGATIVE (NEGATIVE) None Note: Responsible Observer: GLUCOSE GLUC OSE 300.3850 (C) Appearance Ur See Note (CLEAR) None Note: CLEARCLEARLCLEARResponsible Observ er: APPEARANCE APPEARANCE 300.3400 (A) Color Ur See Note None Note: YELLOWYELLOWLYELLOWResponsible Obs erver: COLOR COLOR 300.3300 (A) Leukocyte esterase Ur Ql Strip See Note (NEGATIVE) None Note: [id number]@DO MICR O!!!!Responsible Observer: LEUKOCYTES LEUKOCYTES 300.3575 (C) Nitrite Ur Ql Strip See Note (NEGATIVE) None Note: [id number] EResponsible Observer: NITRITE NITRITE 300.3650 (B) pH [...] are final unless otherwise noted. Reported Physicians [facility] Ordered by Maya Barron MD on 04/25/2020 Collected: 04/25/2020 Reported: 04/25/2020 21:54 Reported Physicians See Note None Note: Reported Physicians:Ordering: Cristino FerreiraAttending: Jos Rivas To: Maya Barron Reviewed by Maya Barron MD on 04/26; All test results are final unless otherwise noted. BHCG, QUANTITATIVE [facility] Ordered by Maya Barron MD on [...] are final unless otherwise noted. Reported Physicians [facility] Ordered by Maya Barron MD on 04/18/2020 Collected: 04/18/2020 Reported: 04/18/2020 15:11 Reported Physicians See Note None Note: Reported Physicians:Ordering: Maya AlvarengaAttending: Maya Barron Reviewed by Maya Barron MD on 04/19; All test results are final unless otherwise noted. ADD ON MICROSCOPIC [facility] Ordered by Maya Barron MD on 04/16/2020 Collected: 04/16/2020 Reported: 04/16/2020 23:51 ADD ON MICROSCOPIC See Note (0-5) None Note: NOTES OTHER/NOT INTERPRETED Bacteria UrnS Ql Micro SMALL AMOUNT Bacteria UrnS Ql Micro SMALL AMOUNT Bacteria UrnS Ql Micro L Bacteria UrnS Ql Micro Bacteria UrnS Ql Micro Bacteria UrnS Ql Micro Bacteria UrnS Ql Micro [id number] Bacteria UrnS Ql Micro Bacteria UrnS Ql [...] are final unless otherwise noted. Reported Physicians [facility] Ordered by Maya Barron MD on 04/16/2020 Collected: 04/16/2020 Reported: 04/16/2020 23:52 Reported Physicians See Note None Note: Reported Physicians:Ordering: Jose E JoseodAttending: Mat JoseCopyifan To: Maya Barron Reviewed by Maya Barron MD on 04/17; All test results are final unless otherwise noted. UA W/ CULTURE IF ABNORMAL [facility] Ordered by Maya Barron MD on 04/16/2020 Collected: 04/16/2020 Reported: 04/16/2020 23:51 Urobilinogen Ur Ql See Note (0.2-1 EU/dl) None Note: 0.2 EU/dl0.2 EU/[id number] E U/dlResponsible Observer: UROBILINOGEN UROBILINOGEN 300.4500 (C) RBC # Ur Strip NEGATIVE (NEGATIVE) None Note: Responsible Observer: BLOOD BLOOD 300.4652 (C) Prot Ur Ql Strip See Note (NEGATIVE) None Note: [id number] EResponsible Observer: PROTEIN PROTEIN 300.3750 (C) Ketones Ur Ql Strip See Note (NEGATIVE) None Note: [id number] ble Observer: KETONE KETONE 300.3900 (C) Bilirub Ur Ql Strip.auto See Note (NEGATIVE) None Note: [id number] EResponsible Observer: BILIRUBIN BILIRUBIN 300.4550 (C) Glucose Ur Strip.auto-mCnc NEGATIVE (NEGATIVE) None Note: Responsible Observer: GLUCOSE GLUC OSE 300.3850 (C) Appearance Ur See Note (CLEAR) None Note: CLEARCLEARLCLEARResponsible Observ er: APPEARANCE APPEARANCE 300.3400 (A) Color Ur See Note None Note: YELLOWYELLOWLYELLOWResponsible Obs erver: COLOR COLOR 300.3330 (A) Leukocyte esterase Ur Ql Strip See Note (NEGATIVE) None Note: [id number] E@DO MICRO!!!!A Culture has been added to this specimen per established criteriaResponsible Observer: LEUKOCYTES LEUKOCYTES 300.3576 (C) Nitrite Ur Ql Strip See Note (NEGATIVE) None Note: [id number] EResponsible Observer: NITRITE NITRITE 300.3652 (B) pH [...] are final unless otherwise noted. Urine culture [facility] Ordered by Maya Barron MD on 04/16/2020 Collected: 04/16/2020 Reported: 04/18/2020 06:47 Urine culture result See Note None Note: Less than 10,000 CFU/MLNormal Comm ensal FloraProbable contaminants no senst done NOTES See Note None Note: @04/16/20 2351: Urine culture adde d. RFLXG = CULT.ADD. Reviewed by Maya Barron MD on 04/18; All test results are final unless otherwise noted. Reported Physicians [facility] Ordered by Maya Barron MD on 04/16/2020 Collected: 04/16/2020 Reported: 04/18/2020 06:47 Reported Physicians See Note None Note: Reported Physicians:Ordering: Damon , VinodAttending: Damon, VinodCopy To: Maya Barron Reviewed by Maya Barron MD on 04/18; All test results are final unless otherwise noted. 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 [facility] [place] Ordered by Maya Barron MD on [...] 1,000 - 50,000Responsible Observer: [facility] [place]ANT [facility], QUANTITATIVE 600.5006 (G) Reviewed by Maya Barron MD on 04/17; All test results are final unless otherwise noted. Reported Physicians [facility] Ordered by Maya Barron MD on 04/16/2020 Collected: 04/16/2020 Reported: 04/16/2020 22:47 Reported Physicians See Note None Note: Reported Physicians:Ordering: Damon , VinodAttending: Damon, VinodCopy To: Maya Barron Reviewed by Maya Barron MD on 04/17; All test results are final unless otherwise noted. CMP [facility] Ordered by Maya Barron MD on [...] are final unless otherwise noted. Reported Physicians [facility] Ordered by Maya Barron MD on 04/16/2020 Collected: 04/16/2020 Reported: 04/16/2020 22:44 Reported Physicians See Note None Note: Reported Physicians:Ordering: Damon , VinodAttending: Damon, VinodCopy To: Maya Barron Reviewed by Maya Barron MD on 04/17; All test results are final unless otherwise noted. LIPASE [facility] Ordered by Maya Barron MD on 04/16/2020 Collected: 04/16/2020 Reported: 04/16/2020 22:44 Lipase SerPl-cCnc 107 enzyme_unit_per_liter (73-393) N (Normal) Note: Responsible Observer: Lipase Lipas e 400.2310 (G) Reviewed by Maya Barron MD on 04/17; All test results are final unless otherwise noted. Reported Physicians [facility] Ordered by Maya Barron MD on 04/16/2020 Collected: 04/16/2020 Reported: 04/16/2020 22:44 Reported Physicians See Note None Note: Reported Physicians:Ordering: Jose E JoseodAttending: Damon, VinodCopy To: Maya Barron Reviewed by Maya Barron MD on 04/17; All test results are final unless otherwise noted. Type and Screen [facility] Ordered by Maya Barron MD on [...] are final unless otherwise noted. Reported Physicians [facility] Ordered by Maya Barron MD on 04/16/2020 Collected: 04/16/2020 Reported: 04/16/2020 23:09 Reported Physicians See Note None Note: Reported Physicians:Ordering: Damon , VinodAttending: Damon, VinodCopy To: Maya Barron Reviewed by Maya Barron MD on 04/17; All test results are final unless otherwise noted. [facility] Ordered by Maya Barron MD on 04/10/2020 [address] [place], [address] Collected: 04/10/2020 Reported: 04/11/2020 11:35 tel : [...] by Maya Barron MD on 04/10/2020 [address] [place], [address] Collected: 04/10/2020 Reported: 04/11/2020 11:35 tel :[phone] ext. 1500 Albumin 4.2 g/dl (3.4-5.0) None [...] Ordered by Maya Barron MD on 04/10/[address] [place] [address], [address] Collected: 04/10/2020 Reported: 04/11/2020 11:35 tel :[phone] ext. 1500 TSH 1.336 uIu/mL (0.5-5.8) None Note: Responsible Observer: AW Reviewed by Maya Barron MD on 04/12; All test results are final unless otherwise noted. -[facility] Ordered by Maya Barron MD on 02/25/2020 Collected: 02/25/2020 Reported: 02/28/2020 15:53 C trach rRNA XXX Ql ТАТЬЯНА+probe See Note (NOT DETECTED) None Note: NOT DETECTEDNOT DETECTEDLNOT DETEC TEDNOT [id number] DETECTEDResponsible Observer: C.Trach RNA Chlamydia trachomatis DNA-ТАТЬЯНА 40500285 913.9900 ([facility]) N gonorrhoea rRNA XXX Ql ТАТЬЯНА+probe See Note (NOT DETECTED) None Note: NOT DETECTEDNOT DETECTEDLNOT DETEC TEDNOT [id number] DETECTEDResponsible Observer: GC RNA Neisseria gonorrhoeae DNA -ТАТЬЯНА 05373418 913.9905 ([facility]) Chlamydia/GC DNA Note SEE NOTE None Note: The analytical performance charact eristics of thisassay, when used to test SurePath(TM) specimens have beendetermined by [employer]. The modifications havenot been cleared or approved by the FDA. This assay hasbeen validated pursuant to the CLIA regulations and isused for clinical purposes.For additional information, please refer tohttps://education.[employer].BABADU/faq/UNG379(This link is being provided for information/educational purposes only.)THIS TEST WAS PERFORMED AT:[facility] [address] [id number] ONEILLesponsible Observer: GC/Chlam Note Chlamydia/GC DNA Note [id number] 913.9907 (A) NOTES See Note None Note: Source Of Specimen: URINE Reviewed by Maya Barron MD on 02/28; All test results are final unless otherwise noted. Reported Physicians [facility] Ordered by Maya Barron MD on 02/25/2020 Collected: 02/25/2020 Reported: 02/28/2020 15:54 Reported Physicians See Note None Note: Reported Physicians:Ordering: Maya AlvarengaAttending: Maya Barron Reviewed by Maya Barron MD on 02/28; All test results are final unless otherwise noted. Urine culture-[facility] Ordered by Maya Barron MD on 02/25/2020 Collected: 02/25/2020 Reported: 02/26/2020 13:38 Urine culture result No growth None Reviewed by Maya Barron MD on 02/27; All test results are final unless otherwise noted. Reported Physicians [facility] Ordered by Maya Barron MD on 02/25/2020 Collected: 02/25/2020 Reported: 02/26/2020 13:39 Reported Physicians See Note None Note: Reported Physicians:Ordering: Maya AlvarengaAttending: Maya Barron Reviewed by Maya Barron MD on 02/27; All test results are final unless otherwise noted. Test Office Lab Ordered by Maya Barron MD on 02/25/2020 [address] [place], [address] Specimen Source: Urine Collected: 02/25/2020 Reporte d: 02/25/2020 11:15 tel:[phone] Urine HCG neg (negative) N (Normal) Reviewed by Maya Barron MD on 02/24; All test results are final unless otherwise noted. Urinalysis w/out microscopy Office Lab Ordered by Maya Barron MD on 02/25/2020 [address] [place], [address] Specimen Source: Urine Collected: 02/25/2020 Reporte d: 02/25/2020 11:02 tel:[phone] bilirubin neg (neg) N (Normal) blood neg [...] otherwise noted. UA W/ CULTURE IF ABNORMAL [facility] Ordered by Maya Barron MD on 01/29/2020 Collected: 01/29/2020 Reported: 01/29/2020 00:22 Urobilinogen Ur Ql See Note (0.2-1 EU/dl) None Note: 1 EU/dl1 EU/dlL1 EU/dl1 EU/agR3869 7002929 EU/dlResponsible Observer: UROBILINOGEN UROBILINOGEN 300.4500 (C) RBC # Ur Strip NEGATIVE (NEGATIVE) None Note: Responsible Observer: BLOOD BLOOD 300.4652 (C) Prot Ur Ql Strip See Note (NEGATIVE) None Note: NEGATIVENEGATIVELNEGATIVENEGATIVEL [id number] Observer: PROTEIN PROTEIN 300.3750 (C) Ketones Ur Ql Strip See Note (NEGATIVE) None Note: 15 mg/dL15 mg/dLL15 mg/dL15 mg/dLL 085516579581 mg/dLResponsible Observer: KETONE KETONE 300.3900 (C) Bilirub Ur Ql Strip.auto See Note (NEGATIVE) None Note: NEGATIVENEGATIVELNEGATIVENEGATIVEL [id number] Observer: BILIRUBIN BILIRUBIN 300.4550 (C) Glucose Ur Strip.auto-mCnc NEGATIVE (NEGATIVE) None Note: Responsible Observer: GLUCOSE GLUC OSE 300.3850 (C) Appearance Ur See Note (CLEAR) None Note: CLEARCLEARLCLEARCLEARLCLEARRespons ible Observer: APPEARANCE APPEARANCE 300.3400 (A) Color Ur See Note None Note: YELLOWYELLOWLYELLOWYELLOWLYELLOWRe sponsible Observer: COLOR COLOR 300.3330 (A) Leukocyte esterase Ur Ql Strip See Note (NEGATIVE) None Note: NEGATIVENEGATIVELNEGATIVENEGATIVEL [id number] Observer: LEUKOCYTES LEUKOCYTES 300.3576 (C) Nitrite Ur Ql Strip See Note (NEGATIVE) None Note: NEGATIVENEGATIVELNEGATIVENEGATIVEL 9053552057VBGWQVGAHnwxnspyccf Observer: NITRITE NITRITE 300.3652 (B) pH Ur [...] are final unless otherwise noted. Reported Physicians [facility] Ordered by Maya Barron MD on 01/29/2020 Collected: 01/29/2020 Reported: 01/29/2020 00:22 Reported Physicians See Note None Note: Reported Physicians:Ordering: Brook yeung PatAttending: Charles Silva To: Maya Barron Reviewed by Maya Barron MD on 01/30; All test results are final unless otherwise noted. BHCG,SERUM QUALITATIVE [facility] Ordered by Maya Barron MD on [...] are final unless otherwise noted. Reported Physicians [facility] Ordered by Maya Barron MD on 01/28/2020 Collected: 01/28/2020 Reported: 01/28/2020 22:58 Reported Physicians See Note None Note: Reported Physicians:Ordering: Brook yeung PatAttending: Charles Silva To: Maya Barron Reviewed by Maya Barron MD on 01/30; All test results are final unless otherwise noted. CBC W AUTO DIFF [facility] Ordered by Maya Barron MD on [...] Auto See Note (0-2) N (Normal) Note: 0.30.3L0.30.1E84058545512.3Respons ible Observer: IG% IG% 100.1375 (B) Hct [...] test results are final unless otherwise noted. [facility] Ordered by Maya [...] are final unless otherwise noted. Reported Physicians [facility] Ordered by Maya Barron MD on 01/28/2020 Collected: 01/28/2020 Reported: 01/28/2020 23:00 Reported Physicians See Note None Note: Reported Physicians:Ordering: Cliff Napolesending: Charles Silva To: Maya Barron Reviewed by Maya Barron MD on 01/30; All test results are final unless otherwise noted. UA W/ CULTURE IF ABNORMAL [facility] Ordered by Maya Barron MD on 12/12/2019 Collected: 12/12/2019 Reported: 12/12/2019 11:22 Urobilinogen Ur Ql See Note (0.2-1 EU/dl) None Note: 1 EU/dl1 EU/dlL1 EU/dl1 EU/htE4645 5446998 EU/dlResponsible Observer: UROBILINOGEN UROBILINOGEN 300.4500 (C) RBC # Ur Strip NEGATIVE (NEGATIVE) None Note: Responsible Observer: BLOOD BLOOD 300.4652 (C) Prot Ur Ql Strip See Note (NEGATIVE) None Note: NEGATIVENEGATIVELNEGATIVENEGATIVEL [id number] Observer: PROTEIN PROTEIN 300.3750 (C) Ketones Ur Ql Strip See Note (NEGATIVE) None Note: 15 mg/dL15 mg/dLL15 mg/dL15 mg/dLL 933346712924 mg/dLResponsible Observer: KETONE KETONE 300.3900 (C) Bilirub Ur Ql Strip.auto See Note (NEGATIVE) None Note: NEGATIVENEGATIVELNEGATIVENEGATIVEL [id number] Observer: BILIRUBIN BILIRUBIN 300.4550 (C) Glucose Ur Strip.auto-mCnc NEGATIVE (NEGATIVE) None Note: Responsible Observer: GLUCOSE GLUC OSE 300.3850 (C) Appearance Ur See Note (CLEAR) A (Abnormal) Note: CLOUDYCLOUDYLCLOUDYCLOUDYLCLOUDYRe sponsible Observer: APPEARANCE APPEARANCE 300.3400 (A) Color Ur See Note None Note: YELLOWYELLOWLYELLOWYELLOWLYELLOWRe sponsible Observer: COLOR COLOR 300.3330 (A) Leukocyte esterase Ur Ql Strip See Note (NEGATIVE) None Note: NEGATIVENEGATIVELNEGATIVENEGATIVEL [id number] Observer: LEUKOCYTES LEUKOCYTES 300.3576 (C) Nitrite Ur Ql Strip See Note (NEGATIVE) None Note: NEGATIVENEGATIVELNEGATIVENEGATIVEL 0758088714LCWHWPUIYlrwsihzjcg Observer: NITRITE NITRITE 300.3652 (B) pH Ur [...] are final unless otherwise noted. Reported Physicians [facility] Ordered by Maya Barron MD on 12/12/2019 Collected: 12/12/2019 Reported: 12/12/2019 11:23 Reported Physicians See Note None Note: Reported Physicians:Ordering: Maya AlvarengaAttending: Maya Barron Reviewed by Maya Barron MD on 12/12; All test results are final unless otherwise noted. CBC W AUTO DIFF [facility] Ordered by Maya Barron MD on [...] Auto See Note (0-2) N (Normal) Note: [id number] ible Observer: IG% IG% 100.1375 (B) Hct [...] test results are final unless otherwise noted. [facility] Ordered by Maya [...] are final unless otherwise noted. Reported Physicians [facility] Ordered by Maya Barron MD on 12/12/2019 Collected: 12/12/2019 Reported: 12/12/2019 11:58 Reported Physicians See Note None Note: Reported Physicians:Ordering: Maya AlvarengaAttending: Maya Barron Reviewed by Maya Barron MD on 12/12; All test results are final unless otherwise noted. Gastrointestinal Panel PCR [facility] Ordered by Maya Barron MD on [...] VALUE FOR ALL PATHOGENS IS "NOT DETECTED"THE [employer] GASTROINTESTINAL PANEL DOES NOT DIFFERENTIATEBETWEEN VIABLE AND [...] OTHER EXPERTS. (E.G. GUIDELINES/POLICYSTATEMENTS PUBLISHED BY THE [place] OF PEDIATRICSOR THE SOCIETY FOR HEALTHCARE EPIDEMIOLOGY OF [place] ANDTHE INFECTIOUS DISEASE SOCIETY OF [place]).CLOC. difficile toxin [id number]. difficile toxin detected Reviewed by aMya Barron MD on 12/12; All test results are final unless otherwise noted. Reported Physicians [facility] Ordered by Maya Barron MD on 12/12/2019 Collected: 12/12/2019 Reported: 12/12/2019 14:17 Reported Physicians See Note None Note: Reported Physicians:Ordering: Maya AlvarengaAttending: Maya Barron Reviewed by Maya Barron MD on 12/12; All test results are final unless otherwise noted. CBC W AUTO DIFF [facility] Ordered by Maya Barron MD on [...] Auto See Note (0-2) N (Normal) Note: 0.00.0L0.00.8J18552882702.0Respons ible Observer: IG% IG% 100.1375 (B) Hct [...] test results are final unless otherwise noted. [facility] Ordered by Maya [...] unless otherwise noted. Prothrombin Time & INR [facility] Ordered by Maya Barron MD on [...] are final unless otherwise noted. Reported Physicians [facility] Ordered by Maya Barron MD on 12/07/2019 Collected: 12/07/2019 Reported: 12/07/2019 17:21 Reported Physicians See Note None Note: Reported Physicians:Ordering: Aj Snowending: Jos Castellanos To: Maya Barron Reviewed by Maya Barron MD on 12/09; All test results are final unless otherwise noted. Urinalysis w/out microscopy Office Lab Ordered by Maya Barron MD on 11/22/2019 [address] [place], [address] Specimen Source: Urine Collected: 11/22/2019 Reporte d: 11/22/2019 15:28 tel:[phone] bilirubin neg (neg) N (Normal) blood neg [...] Lab Ordered by Maya Barron MD on [address] [place] [address], [address] Specimen Source: Urine Collected: Reported: 2020 11:41 tel:[phone] bilirubin NEGATIVE (neg) N (Normal) blood NEGATIVE [...] Ordered by Maya Barron MD on 12/27/[address] [place] [address], [address] Specimen Source: Urine Collected: Reported: 2019 13:46 [...] gestatio n of Maya Barron MD [facility], [facility] 11/14/2020 no charge procedure NC Palpitations Maya Barron MD [facility], [facility] 11/03/2020 no charge procedure NC Palpitations Maya Barron MD [facility], [facility] 10/31/2020 REVISIT- office visit KAYLEIGH 18 weeks gestatio n of Maya Barron MD [facility], [facility] 10/31/2020 REVISIT- office visit KAYLEIGH 17 weeks gestatio n of Maya Barron MD [facility], [facility] 10/24/2020 no charge procedure NC Palpitations Maya Barron MD [facility], [facility] 10/17/2020 REVISIT- office visit KAYLEIGH 16 weeks gestatio n of Maya Barron MD [facility], [facility] 10/17/2020 Holter Monitor, Physician review & interpretation only 85488 Palpitations Michel Villalba MD [facility] Out[facility] 10/11/2020 REVISIT- office visit KAYLEIGH 15 weeks gestatio n of Maya Barron MD [facility], [facility] 10/11/2020 REVISIT- office visit KAYLEIGH 13 weeks gestatio n of Maya Barron MD [facility], [facility] 09/27/2020 REVISIT- office visit KAYLEIGH 12 weeks gestatio n of Maya Barron MD [facility], [facility] 09/19/2020 EKG- Electrocardiogram/12 lead 93952 [facility], [facility] 09/11/2020 REVISIT- office visit KAYLEIGH 10 weeks [facility]atio n [facility] 09/05/2020 REVISIT- office visit KAYLEIGH 8 weeks gestation of Maya Barron MD [facility], [facility] 08/22/2020 Urinalysis w/o Microscopy (Distinct Seperate service-same da y) 87250 Frequency of micturition- Urinary Frequency Maya Barron MD [facility], [facility] 08/15/2020 RAPID STREP 21971 Acute pharyngitis, unspecified Maya Barron MD [facility], [facility] 08/15/2020 Initial Obstetrical Care Office Visit OB Le ss than 8 weeks gestation of Cat uHston Gutierrez [facility], [facility] 021 Urinalysis w/o Microscopy 39616 Frequency of micturiti on- Urinary Frequency Maya Barron MD [facility], [facility] 07/19/2020 REVISIT- office visit K[facility]LEIGH Threatened Alicja Barron MD [facility], [facility] 05/26/2020 NO CHARGE- Nurse visit- OB establish [employer] Thr eatened , state, incidental Maya Barron MD [facility], [facility] 020 General Health Panel( CMP, CBC, TSH) 71431 Dysmenorrhe a, unspecified Maya Barron MD [facility], [facility] 04/10/2020 Venipuncture (routine) 14641 Dysmenorrhea, unspecified Mariela Barron MD [facility], [facility] 04/10/2020 Brief Emotional Behavior Assessment ( add -59 mod) 18258 Screening for Mental Health/Behavioral Disorder, Unspecified Maya Barron MD [facility], [facility] 04/10/2020 Urine Test 40230 Pelvic and perineal pain, Frequency of micturition- Urinary Frequency Maya Barron MD [facility], [facility] 02/25/2020 Urinalysis w/o Microscopy 38156 Frequency of micturiti on- Urinary Frequency Maya Barron MD [facility], [facility] 02/25/2020 Urine Test 49676 Amenorrhea, unspecified Maya Barron MD [facility], [facility] 12/27/2019 Urinalysis w/o Microscopy 72040 Right upper quadrant pain Trinity Barron MD [facility], [facility] 11/22/2019 Surgical History Last Updated No surgical [...] REVISIT- Routine (OB) Visit Maya Barron MD [facility], [facility] 11/21/2020 11:33AM 11/14/2020 11:59PM REVISIT- Routine (OB) Visit Maya Barron MD [facility], [facility] 11/14/2020 9:55AM 10:36AM REVISIT- Routine (OB) Visit Maya Barron MD [facility], [facility] 11/07/2020 11:42AM 12:02PM OB- ILL VISIT Maya Barron MD [facility], [facility] 11/03/2020 3:45PM 4:29PM , Generalized Anxie ty Disorder, Panic Disorder, Chest Pain Chronic Care Mgt - Office Visit Maya Barron MD [facility], [facility] 11/03/2020 2:37PM 3:38PM Chronic Care Mgt - Office Visit Maya Barron MD [facility], [facility] 10/31/2020 3:23PM 3:24PM Fracture of Fift h Cervical Vertebral Body, History of Psychiatric Disorders, Reactive Airway Disease REVISIT- Routine (OB) Visit Maya Barron MD [facility], [facility] 10/31/2020 9:54AM 10:24AM Chronic Care Mgt - Office Visit Maya Barron MD [facility], [facility] 10/24/2020 2:16PM 11:59PM REVISIT- Routine (OB) Visit Maya Barron MD [facility], [facility] 10/24/2020 10:00AM 10:47AM REVISIT- Routine (OB) Visit Maya Barron MD [facility], [facility] 10/17/2020 11:24AM 12:12PM Chronic Care Mgt - Office Visit Maya Barron MD [facility], [facility] 10/17/2020 11:25AM 12:11PM Fracture of Fift h Cervical Vertebral Body, History of Psychiatric Disorders, Reactive Airway Disease REVISIT- Routine (OB) Visit Maya Barron MD [facility], [facility] 10/11/2020 9:44AM 10:15AM OB- ILL VISIT Maya Barron MD [facility], [facility] 10/04/2020 2:12PM 2:31PM Presyncope Syndrome, Tachyca rdia, Palpitations, Difficulty Breathing (Dyspnea), Weeks of Gestation - 14 REVISIT- Routine (OB) Visit [facility] [facility], [facility] 09/27/2020 1:36PM 1:59PM telephone conversation Michel Villalba MD 09/19/2020 9:43PM 09/19/2020 11:59PM Atypical Chest Pain REVISIT- Routine (OB) Visit Maya Barron MD [facility], [facility] 09/19/2020 9:48AM 10:14AM REVISIT- Routine (OB) Visit Cat Gutierrez [facility], [facility], [facility] 09/11/2020 3:22PM 4:16PM REVISIT- Routine (OB) Visit Cat Gutierrez [facility], [facility], [facility] 09/05/2020 9:37AM 10:00AM TCMNV phone call- NO CHARGE Cat Gutierrez [facility] 09/04/2020 09/05/2020 4:54PM 09/05/2020 11:59PM [Patient Encounter] Cat Gutierrez [facility] 08/31/2020 021 2:21PM 08/22/2020 11:59PM telephone conversation Michel Villalba MD 08/2808/22/2020 11:00AM 08/22/2020 11:59PM REVISIT- Routine (OB) Visit Maya Barron MD [facility], [facility] 08/22/2020 1:56PM 2:19PM sick visit Maya Barron MD [facility] 0 08/15/2020 9:36AM 10:12AM Upper Respiratory Infection Acute, Pollakiuria Obstetrics/ first visit Cat Gutierrez [facility], [facility] 08/09/2020 9:22AM 10:56AM followup Cat Gutierrez [facility] 0 08/02/2020 10:18AM 11:42AM Generalized Anxiety Disorder , Early Stage, Abdominal Pain telephone conversation Michel Villalba MD 07/26/2020 7:59AM 07/26/2020 11:59PM [Patient Encounter] Cat Gutierrez [facility] 07/28/2020 021 2:20PM 07/26/2020 11:59PM followup Maya Barron MD [facility] 0 07/26/2020 10:39AM 11:02AM , Generalized Anxie ty Disorder sick visit Bandar Cleveland PA-C [facility], [facility] 3:36PM 4:30PM Pyrexia followup Maya Barron MD [facility] 0 07/19/2020 10:52AM 11:30AM , Generalized Anxie ty Disorder, Pollakiuria followup Maya Barron MD [facility] 1 09/11/2019 10:43AM 11:14AM Atypical Chest Pain, Adjustm ent Disorder followup Maya Barron MD [facility] 1 08/07/2019 10:43AM 10:59AM Missed followup Maya Barron MD [facility] 05/26 1:45PM 2:11PM with Threatened Problem visit - not contagious Maya Barron MD [facility] 05/24/2020 11:13AM 12:00PM with T hreatened [Patient Encounter] Maya Barron MD 05/24/2020 020 10:17AM 04/19/2020 11:59PM followup Maya Barron MD [facility] 1 11:51AM 12:08PM ANNUAL PE-followup Maya Barron MD [facility] 04/10/2020 8:42AM 9:13AM Routine History and Physical Adult (18 - 64 Yrs), Dysmenorrhea sick visit Maya Barron MD [facility] 0 03/06/2020 3:32PM 3:42PM Sinusitis sick visit Maya Barron MD [facility] 0 02/25/2020 10:46AM 11:12AM Pollakiuria, Female Pelvic P ain followup Maya Barron MD [facility] 01/31 2:25PM 2:51PM Back Strain followup Maya Barron MD [facility] 12/26 1:25PM 1:42PM Amenorrhea, Clostridium Difficile sick visit Maya Barron MD [facility] 0 12/07/2019 4:00PM 4:17PM Abdominal Pain sick visit Maya Barron MD [facility] 0 11/22/2019 3:13PM 3:37PM Esophageal Reflux, Abdominal Pain, Generalized Anxiety Disorder Insurance Includes: Active Insurance Policies Plan Name Member ID Group # Subscriber Relationship Effective Da greg 1 - MANAGED MEDICAID [facility] [id number] Georgiana Nguyen 2020 - Unknown Advance Directives Includes: Current Advance DirectivesNo Advance Directives Recorded Health Concerns Includes: Active Health ConcernsNo Active Health Concerns Recorded Goals Includes: Active GoalsNo Active Goals Recorded Interventions Includes: Interventions for active GoalsNo Interventions Recorded Evaluations & Outcomes Includes: Evaluations & Outcomes for active GoalsNo Outcomes Recorded
--- OUTSIDE RECORDS SUMMARY | 2021-04-29 17:02 | CCD ---
Author Author [facility] Organization [facility] Address [address] [place] [address] Phone Care Team Providers Care Ob Gyn Physician Assistant Name Role Phone Anderson GILL, Maya Duke PP [phone] Christopher BLANCHARD, Kimberly Prajapati Unavailable Unavailable Reason [...] yaima Rads U/S - a. Ultrasound OB US-20wk (Anatomy) state, in cidental 11/20/20 Maya Barron MD Referral Physical Therapist Cervicalgia neck pain 12/04/20 Maya Barron MD Findings Encounter Date Community [...] or concerns sick visit with Cat Gutierrez [facility] 10/30/2018 Assessments Includes: Assessments for [...] psychiatric disorders [facility] Visit with Maya Barron MD 10/31/2020 Reactive [...] provided today. 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[facility] [place] [Encounter for general adult medical examination with abnormal findings] ANNUAL PE-followup with Maya Barron MD 04/07/2019 Vaginal candidiasis sick visit with Cat Gutierrez RPA 02/11 Pharyngitis urgent visit with Bandar Cleveland PA-C 2018 Sprained ribs ; left sick visit with Cat Gutierrez [facility] Strain of muscle and tendon of front wall of thorax si ck visit with Cat Gutierrez [facility] 10/30/2018 Fracture of fifth cervical vertebral body No Fault with Wanda ellie Betzaida De PazGutierrez RPA 03/04/2018 Late effects of accident No Fault with Cat Gutierrez [facility] 0 03/04/2018 Instructions Instructions not supported for [...] Recorded Vital Signs Includes: Vital Signs from 11/15/2019 through 11/14/2020 Vital Name 11/14/2020 10:01A 11/07/2020 11:52A 11/03/2020 [...] Pressure Sitting (mmHg) 98/60 118/76 116/80 120/80 Temp-Tympanic (F) 98.2 Height (in) 65 65 65 Body Mass Index (kg/m2) 20.6 20.2 2 0.8 Body Surface Area (m2) 1.61 1.60 1. 62 Temp-Oral (F) 98.5 98.2 98.5 Oxygen Saturation (%) 98 98 98 Vital Name 06/07/2020 10:51A 05/26/2020 01:50P 05/24/2020 [...] 03:38P 02/25/2020 10:59A 02/01/2020 02:38P 12/27/2019 01:31P 12/07/2019 04:04P Pulse Rate-Sitting (bpm) 102 72 88 68 75 Respiration Rate (breaths/min) 20 20 18 18 Blood Pressure Sitting (mmHg) 90/58 98/60 Temp-Oral (F) 97.6 Oxygen Saturation (%) 97 Pain Level 6 Vital Name 11/22/2019 03:25P 11/15/2019 01:12P Pulse Rate-Sitting (bpm) 72 74 Respiration Rate (breaths/min) 20 20 Weight (lb) 114 Blood Pressure Sitting (mmHg) 98/70 Temp-Oral (F) 97.6 Results Includes: Results from 11/15/2019 through 11/14/2020 [facility] Quantitative [facility] Lab Ordered by Maya Barron MD on 10/23/2020 Collected: 10/23/2020 Reported: 10/23/2020 01:21 [facility] [id number] MilliInternationalUnitsPerMilliLiter_[Arbitrary_Con (0-10) H (High) Note: @Instrument will [...] unless otherwise noted. Reported Physicians [facility] Lab Ordered by Maya Barron MD on 10/23/2020 Collected: 10/23/2020 Reported: 10/23/2020 01:21 Reported Physicians See Note None Note: Reported Physicians:Ordering: Yoli NapolesAttending: Yoli SilvaCopy To: Maya Barron Reviewed by Maya Barron MD on 10/23; All test results are final unless otherwise noted. CBC W AUTO DIFF [facility] Ordered by Maya Barron MD [...] Auto See Note (0-2) N (Normal) Note: [id number] Ob observer gravity prospecting: IG% IG% 100.1375 (B) Hct VFr Bld [...] test results are final unless otherwise noted. [facility] Lab Ordered by [...] final unless otherwise noted. D-DIMER [facility] Lab Ordered by Maya Barron MD [...] unless otherwise noted. Reported Physicians [facility] Ordered by Maya Barron MD on 10/23/2020 Collected: 10/23/2020 Reported: 10/23/2020 01:22 Reported Physicians See Note None Note: Reported Physicians:Ordering: Cliff Napolesending: Charles Silva To: Maya Barron Reviewed by Maya Barron MD on 10/23; All test results are final unless otherwise noted. TROPONIN [facility] Lab Ordered by Maya Barron MD on 10/23/2020 Collected: 10/23/2020 Reported: 10/23/2020 01:03 Troponin I SerPl-mCnc Less Than 0.015 (0.00-0.09) N (Normal) Note: Less than 0.09 NG/ML Negative 0.10 - 0.77 NG/ML High Risk0.78 NG/ML or Greater PositiveThe WHO defined the cutoff (definition for diagnosis of RI)for this method as 0.78 ng/ml.Responsible Observer: Troponin I Troponin I 600.1101 (G) Reviewed by Maya Barron MD on 10/23; All test results are final unless otherwise noted. Reported Physicians [facility] Ordered by Maya Barron MD on 10/23/2020 Collected: 10/23/2020 Reported: 10/23/2020 01:03 Reported Physicians See Note None Note: Reported Physicians:Ordering: Yoli NapolesAttending: Charles Silva To: Maya Barron Reviewed by Maya Barron MD on 10/23; All test results are final unless otherwise noted. FREE T4 (LAB) [facility] Lab Ordered by Maya Barron MD on 10/21/2020 Collected: 10/21/2020 Reported: 10/21/2020 15:17 T4 Free SerPl-mCnc 0.97 NanoGramsPerDeciLiter_[Mass_Concentration_Units] (0.89-1.76) N (Normal) Note: Responsible Observer: FREE T4 Free Thyroxine 600.7005 (D) Reviewed by Maya Barron MD on 10/23; All test results are final unless otherwise noted. Reported Physicians [facility] Ordered by Maya Barron MD on 10/21/2020 Collected: 10/21/2020 Reported: 10/21/2020 15:17 Reported Physicians See Note None Note: Reported Physicians:Ordering: Tramaine KaurothyAttending: Tramaine PardoothyCopyifan To: Maya Barron Reviewed by Maya Barron MD on 10/23; All test results are final unless otherwise noted. TSH [facility] Lab Ordered by Maya Barron MD on 10/21/2020 Collected: 10/21/2020 Reported: 10/21/2020 15:17 TSH SerPl DL<=0.005 mIU/L-aCnc 1.40 MicroInternationalUnitsPerMilliLiter_[Arbitrary_Con (0.35-5. 50) N (Normal) Note: Responsible Observer: TSH TSH 600 .7055 (D) Reviewed by Maya Barron MD on 10/23; All test results are final unless otherwise noted. Reported Physicians [facility] Ordered by Maya Barron MD on 10/21/2020 Collected: 10/21/2020 Reported: 10/21/2020 15:17 Reported Physicians See Note None Note: Reported Physicians:Ordering: Choco KaurAttending: Choco PardoCopyifan To: Maya Barron Reviewed by Maya Barron MD on 10/23; All test results are final unless otherwise noted. UA W/ CULTURE IF ABNORMAL [facility] Lab Ordered by Maya Barron MD on 10/19/2020 Collected: 10/19/2020 Reported: 10/19/2020 16:31 Urobilinogen Ur Ql See Note (0.2-1 EU/dl) None Note: 0.2 EU/dl0.2 EU/[id number] E U/dlResponsible Observer: UROBILINOGEN UROBILINOGEN 300.4500 (C) RBC # Ur Strip NEGATIVE (NEGATIVE) None Note: Responsible Observer: BLOOD BLOOD 300.4652 (C) Prot Ur Ql Strip See Note (NEGATIVE) None Note: [id number] EResponsible Observer: PROTEIN PROTEIN 300.3750 (C) Ketones Ur Ql Strip See Note (NEGATIVE) None Note: [id number] EResponsible Observer: KETONE KETONE 300.3900 (C) Bilirub Ur Ql Strip.auto See Note (NEGATIVE) None Note: [id number] EResponsible Observer: BILIRUBIN BILIRUBIN 300.4550 (C) Glucose Ur Strip.auto-mCnc 100 mg/dl (NEGATIVE) None Note: Responsible Observer: GLUCOSE GLUC OSE 300.3850 (C) Appearance Ur See Note (CLEAR) None Note: CLEARCLEARLCLEARResponsible Observ er: APPEARANCE APPEARANCE 300.3400 (A) Color Ur See Note None Note: YELLOWYELLOWLYELLOWResponsible Obs erver: COLOR COLOR 300.3330 (A) Leukocyte esterase Ur Ql Strip See Note (NEGATIVE) None Note: [id number] EResponsible Observer: LEUKOCYTES LEUKOCYTES 300.3576 (C) Nitrite Ur Ql Strip See Note (NEGATIVE) None Note: [id number] EResponsible Observer: NITRITE NITRITE 300.3652 (B) pH [...] unless otherwise noted. Reported Physicians [facility] Ordered by Maya Barron MD on 10/19/2020 Collected: 10/19/2020 Reported: 10/19/2020 16:31 Reported Physicians See Note None Note: Reported Physicians:Ordering: Les Vanegasding: Fady Raza To: Maya Barron Reviewed by Maya Barron MD on 10/20; All test results are final unless otherwise noted. URINE DRUG SCREEN -([facility]) [facility] Ordered by Maya Barron MD on 10/19/2020 Collected: 10/19/2020 Reported: 10/19/2020 16:40 PCP Ur Ql Scn>25 ng/mL See Note (Cutoff 25) None Note: [id number] E@Reenter manual test result: NEGATIVE@by Jia Lentz at 10/19/20 1639.Responsible Observer: PCP Urine Phencyclidine (PCP) Scrn 400.5120 (A) THC Ur Ql Scn>50 ng/mL See Note (Cutoff 50) None Note: [id number] EResponsible Observer: Marijuana (THC) Ur Marijuana (THC) Screen 400.5110 (A) Benzodiaz Ur Ql Scn See Note (Cutoff 150) None Note: [id number] E@Reenter manual test result: NEGATIVE@by Jia Lentz at 10/19/20 1640.Responsible Observer: Benzodiazepines Urine Benzodiazepines Screen 400.5170 (A) Opiates Ur Ql Scn See Note (Cutoff 100) None Note: [id number] E@Reenter manual test result: NEGATIVE@by Jia Lentz at 10/19/20 1640.Responsible Observer: Opiates Urine Opiates Screen 400.5150 (A) Tricyclics Ur Ql Scn See Note (Cutoff 300) None Note: [id number] E@Reenter manual test result: NEGATIVE@by Jia Lentz at 10/19/20 1640.Responsible Observer: TCA Ur Tricyclic Antidepressants 400.5180 (A) Cocaine Ur Ql Scn See Note (Cutoff 150) None Note: [id number] E@Reenter manual test result: NEGATIVE@by Jia Lentz at 10/19/20 1640.Responsible Observer: Cocaine Urine Cocaine Screen 400.5130 (A) Propoxyph+Nor Ur Ql Scn See Note (Cutoff 300) None Note: [id number] E@Reenter manual test result: NEGATIVE@by Jia Lentz at 10/19/20 1640.Responsible Observer: Propoxyphene Urine Propoxyphene Screen 400.5220 (A) Methadone Ur Ql Scn See Note (Cutoff 200) None Note: [id number] E@Reenter manual test result: NEGATIVE@by Jia Lentz at 10/19/20 1640.Responsible Observer: Methadone Urine Methadone Screen 400.5190 (A) Methamphet Ur Ql Scn See Note (Cutoff 500) None Note: [id number] E@Reenter manual test result: NEGATIVE@by Jia Lentz at 10/19/20 1640.Responsible Observer: Methamphetamine Urine Methamphetamines Screen 400.5140 (A) oxyCODONE Ur Ql Scn See Note (Cutoff 100) None Note: [id number] E@Reenter manual test result: NEGATIVE@by Jia Lentz at 10/19/20 1640.Responsible Observer: Oxycodone Urine Oxycodone Screen 400.5210 (A) Buprenorphine Ur Ql See Note (Cutoff 10) None Note: [id number] E@Reenter manual test result: NEGATIVE@by Jia Lentz at 10/19/20 1640.Responsible Observer: Buprenorphine Urine Buprenorphine Screen 400.5230 (A) Amphetamines Ur Ql Scn>500 ng/mL See Note (Cutoff 500) None Note: [id number] E@Reenter manual test result: NEGATIVE@by Jia Lentz at 10/19/20 1640.Responsible Observer: Amphetamines Urine Amphetamines Screen 400.5160 (A) Barbiturates Ur Ql Scn>200 ng/mL See Note (Cutoff 200) None Note: [id number] E@Reenter manual test result: NEGATIVE@by Jia Lentz at 10/19/20 1640.Responsible Observer: Barbiturates Urine Barbiturates 400.5200 (A) Reviewed by Maya Barron MD on 10/20; All test results are final unless otherwise noted. Reported Physicians [facility] Ordered by Maya Barron MD on 10/19/2020 Collected: 10/19/2020 Reported: 10/19/2020 16:40 Reported Physicians See Note None Note: Reported Physicians:Ordering: Les Vanegas AAttending: Fady Raza To: Maya Barron Reviewed by Maya Barron MD on 10/20; All test results are final unless otherwise noted. TSH w/ reflex to Free T4 [facility] Ordered by Maya Barron MD on 10/19/2020 Collected: 10/19/2020 Reported: 10/19/2020 16:08 TSH SerPl DL<=0.005 mIU/L-aCnc 1.66 MicroInternationalUnitsPerMilliLiter_[Arbitrary_Con (0.35-5. 50) N (Normal) Note: Responsible Observer: TSH TSH 600 .7060 (D) Reviewed by Maya Barron MD on 10/20; All test results are final unless otherwise noted. Reported Physicians [facility] Ordered by Maya Barron MD on 10/19/2020 Collected: 10/19/2020 Reported: 10/19/2020 16:08 Reported Physicians See Note None Note: Reported Physicians:Ordering: Les Vanegas: Fady Raza To: Maya Barron Reviewed by Maya Barron MD on 10/20; All test results are final unless otherwise noted. TROPONIN [facility] Ordered by Maya Barron MD on 10/19/2020 Collected: 10/19/2020 Reported: 10/19/2020 16:10 Troponin I SerPl-mCnc Less Than 0.015 (0.00-0.09) N (Normal) Note: Less than 0.09 NG/ML Negative 0.10 - 0.77 NG/ML High Risk0.78 NG/ML or Greater PositiveThe WHO defined the cutoff (definition for diagnosis of RI)for this method as 0.78 ng/ml.Responsible Observer: Troponin I Troponin I 600.1101 (G) Reviewed by Maya Barron MD on 10/20; All test results are final unless otherwise noted. Reported Physicians [facility] Ordered by Maya Barron MD on 10/19/2020 Collected: 10/19/2020 Reported: 10/19/2020 16:10 Reported Physicians See Note None Note: Reported Physicians:Ordering: Les Vanegas: Fady Raza To: Maya Barron Reviewed by Maya Barron MD on 10/20; All test results are final unless otherwise noted. CRP, C-REACTIVE PROTEIN [facility] Ordered by Maya Barron MD on 10/19/2020 Collected: 10/19/2020 Reported: 10/19/2020 16:08 CRP SerPl-mCnc 7.5 MilliGramsPerLiter_[Mass_Concentration_Units] (0.0-5.0) H (High) Note: Responsible Observer: CRP C-Reacti ve Protein 401.4355 (H) Reviewed by Maya Barron MD on 10/20; All test results are final unless otherwise noted. SED RATE [facility] Ordered by Maya Barron MD on 10/19/2020 Collected: 10/19/2020 Reported: 10/19/2020 16:32 ESR Bld Qn Westrgrn 22 (0-20) H (High) Note: @Reenter manual test result: 22@by Jia Lentz at 10/19/20 1632.Responsible Observer: SED RATE SED RATE 100.6400 (B) Reviewed by Maya Barron MD on 10/20; All test results are final unless otherwise noted. Reported Physicians [facility] Ordered by Maya Barron MD on 10/19/2020 Collected: 10/19/2020 Reported: 10/19/2020 16:33 Reported Physicians See Note None Note: Reported Physicians:Ordering: Les Vanegasding: Fady Raza To: Maya Barron Reviewed by Maya Barron MD on 10/20; All test results are final unless otherwise noted. CMP [facility] Ordered by Maay Barron MD [...] noted. CBC W AUTO DIFF [facility] Ordered by Maya Barron MD [...] Auto See Note (0-2) N (Normal) Note: [id number] Ob observer gravity prospecting: IG% IG% 100.1375 (B) Hct VFr Bld [...] unless otherwise noted. Reported Physicians [facility] Ordered by Maya Barron MD on 10/19/2020 Collected: 10/19/2020 Reported: 10/19/2020 16:33 Reported Physicians See Note None Note: Reported Physicians:Ordering: Les Vanegastending: Fady Raza To: Maya Barron Reviewed by Maya Barron MD on 10/20; All test results are final unless otherwise noted. PT/PTT [facility] Ordered by Maya Barron MD [...] unless otherwise noted. Reported Physicians [facility] Ordered by Maya Barron MD on 10/08/2020 Collected: 10/08/2020 Reported: 10/08/2020 03:22 Reported Physicians See Note None Note: Reported Physicians:Ordering: Sana Recinosending: Jasper AnnhCopy To: Maya Barron Reviewed by Maya Barron MD on 10/09; All test results are final unless otherwise noted. BMP [facility] Ordered by Maya Barron MD [...] unless otherwise noted. Reported Physicians [facility] Ordered by Maya Barron MD on 10/08/2020 Collected: 10/08/2020 Reported: 10/08/2020 03:21 Reported Physicians See Note None Note: Reported Physicians:Ordering: Sana Recinosending: Sammie Ann To: Maya Barron Reviewed by Maya Barron MD on 10/09; All test results are final unless otherwise noted. CBC W AUTO DIFF [facility] Ordered by Maya Barron MD [...] Auto See Note (0-2) N (Normal) Note: [id number] Ob observer gravity prospecting: IG% IG% 100.1375 (B) Hct VFr Bld [...] final unless otherwise noted. MAGNESIUM [facility] Ordered by Maya Barron MD on 10/08/2020 Collected: 10/08/2020 Reported: 10/08/2020 03:17 Magnesium SerPl-mCnc 1.8 MilliGramsPerDeciLiter_[Mass_Concentration_Units] (1.3-2.7) N (Normal) Note: Responsible Observer: Magnesium Ma gnesium 400.3300 (G) Reviewed by Maya Barron MD on 10/09; All test results are final unless otherwise noted. D-DIMER [facility] Ordered by Maya Barron MD [...] unless otherwise noted. Reported Physicians [facility] Ordered by Maya Barron MD on 10/08/2020 Collected: 10/08/2020 Reported: 10/08/2020 03:27 Reported Physicians See Note None Note: Reported Physicians:Ordering: Sana Recinosending: Sammie Ann To: Maya Barron Reviewed by Maya Barron MD on 10/09; All test results are final unless otherwise noted. TSH w/ reflex to Free T4 [facility] Ordered by Maya Barron MD on 10/04/2020 Collected: 10/04/2020 Reported: 10/04/2020 17:42 TSH SerPl DL<=0.005 mIU/L-aCnc 1.92 MicroInternationalUnitsPerMilliLiter_[Arbitrary_Con (0.35-5. 50) N (Normal) Note: Responsible Observer: TSH TSH 600 .7060 (D) Reviewed by Maya Barron MD on 10/09; All test results are final unless otherwise noted. Reported Physicians [facility] Ordered by Maya Barron MD on 10/04/2020 Collected: 10/04/2020 Reported: 10/04/2020 17:42 Reported Physicians See Note None Note: Reported Physicians:Ordering: Les Vanegasding: Fady Raza To: Maya Barron Reviewed by Maya Barron MD on 10/09; All test results are final unless otherwise noted. CBC W AUTO DIFF [facility] Ordered by Maya Barron MD [...] Auto See Note (0-2) N (Normal) Note: [id number] Ob observer gravity prospecting: IG% IG% 100.1375 (B) Hct VFr Bld [...] test results are final unless otherwise noted. [facility] Lab Ordered by [...] unless otherwise noted. Reported Physicians [facility] Ordered by Maya Barron MD on 10/04/2020 Collected: 10/04/2020 Reported: 10/04/2020 17:42 Reported Physicians See Note None Note: Reported Physicians:Ordering: Les Vanegasding: Fady Raza To: Maya Barron Reviewed by Maya Barron MD on 10/09; All test results are final unless otherwise noted. SED RATE [facility] Ordered by Maya Barron MD on 10/04/2020 Collected: 10/04/2020 Reported: 10/04/2020 18:05 ESR Bld Qn Westrgrn 16 (0-20) N (Normal) Note: @Reenter manual test result: 16@by Jia Lentz at 10/04/20 1805.Responsible Observer: SED RATE SED RATE 100.6400 (B) Reviewed by Maya Barron MD on 10/09; All test results are final unless otherwise noted. Reported Physicians [facility] Ordered by Maya Barron MD on 10/04/2020 Collected: 10/04/2020 Reported: 10/04/2020 18:06 Reported Physicians See Note None Note: Reported Physicians:Ordering: Les Vanegas: Fady Raza To: Maya Barron Reviewed by Maya Barron MD on 10/09; All test results are final unless otherwise noted. TROPONIN [facility] Ordered by Maya Barron MD on 10/04/2020 Collected: 10/04/2020 Reported: 10/04/2020 17:35 Troponin I SerPl-mCnc Less Than 0.015 (0.00-0.09) N (Normal) Note: Less than 0.09 NG/ML Negative 0.10 - 0.77 NG/ML High Risk0.78 NG/ML or Greater PositiveThe WHO defined the cutoff (definition for diagnosis of RI)for this method as 0.78 ng/ml.Responsible Observer: Troponin I Troponin I 600.1101 (G) Reviewed by Maya Barron MD on 10/09; All test results are final unless otherwise noted. Reported Physicians [facility] Ordered by Maya Barron MD on 10/04/2020 Collected: 10/04/2020 Reported: 10/04/2020 17:35 Reported Physicians See Note None Note: Reported Physicians:Ordering: Les Vanegas: Fady Raza To: Maya Barron Reviewed by Maya Barron MD on 10/09; All test results are final unless otherwise noted. CBC W AUTO DIFF [facility] Ordered by Maya Barron MD [...] Auto See Note (0-2) N (Normal) Note: [id number] Ob observer gravity prospecting: IG% IG% 100.1375 (B) Hct VFr Bld [...] test results are final unless otherwise noted. [facility] Lab Ordered by [...] unless otherwise noted. Reported Physicians [facility] Ordered by Maya Barron MD on 10/03/2020 Collected: 10/03/2020 Reported: 10/03/2020 20:03 Reported Physicians See Note None Note: Reported Physicians:Ordering: Yoli NapolesAttending: Charles Silva To: Maya Barron Reviewed by Maya Barron MD on 10/04; All test results are final unless otherwise noted. [facility] [facility] Ordered by Maya Barron MD on 10/03/2020 Collected: 10/03/2020 Reported: 10/03/2020 20:23 B-HCG SerPl-aCnc 56322 MilliInternationalUnitsPerMilliLiter_[Arbitrary_Con (0-10) H (High) Note: @Instrument will [...] unless otherwise noted. Reported Physicians [facility] Ordered by Maya Barron MD on 10/03/2020 Collected: 10/03/2020 Reported: 10/03/2020 20:23 Reported Physicians See Note None Note: Reported Physicians:Ordering: Yoli NapolesAttending: Charles Silva To: Maya Barron Reviewed by Maya Barron MD on 10/04; All test results are final unless otherwise noted. TROPONIN [facility] Ordered by Maya Barron MD on 10/03/2020 Collected: 10/03/2020 Reported: 10/03/2020 20:07 Troponin I SerPl-mCnc Less Than 0.015 (0.00-0.09) N (Normal) Note: Less than 0.09 NG/ML Negative 0.10 - 0.77 NG/ML High Risk0.78 NG/ML or Greater PositiveThe WHO defined the cutoff (definition for diagnosis of RI)for this method as 0.78 ng/ml.Responsible Observer: Troponin I Troponin I 600.1101 (G) Reviewed by Maya Barron MD on 10/04; All test results are final unless otherwise noted. Reported Physicians [facility] Ordered by Maya Barron MD on 10/03/2020 Collected: 10/03/2020 Reported: 10/03/2020 20:07 Reported Physicians See Note None Note: Reported Physicians:Ordering: Yoli NapolesAttending: Charles Silva To: Maya Barron Reviewed by Maya Barron MD on 10/04; All test results are final unless otherwise noted. MANUAL DIFF [facility] Ordered by Maya Barron MD [...] unless otherwise noted. Reported Physicians [facility] Ordered by Maya Barron MD on 10/03/2020 Collected: 10/03/2020 Reported: 10/03/2020 19:56 Reported Physicians See Note None Note: Reported Physicians:Ordering: Cliff Napolesending: Charles Silva To: Maya Barron Reviewed by Maya Barron MD on 10/04; All test results are final unless otherwise noted. FREE T4 (LAB) [facility] Ordered by Maya Barron MD on 10/03/2020 Collected: 10/03/2020 Reported: 10/03/2020 20:08 T4 Free SerPl-mCnc 0.97 NanoGramsPerDeciLiter_[Mass_Concentration_Units] (0.89-1.76) N (Normal) Note: Responsible Observer: FREE T4 Free Thyroxine 600.7005 (D) Reviewed by Maya Barron MD on 10/04; All test results are final unless otherwise noted. Reported Physicians [facility] Ordered by Maya Barron MD on 10/03/2020 Collected: 10/03/2020 Reported: 10/03/2020 20:08 Reported Physicians See Note None Note: Reported Physicians:Ordering: Yoli NapolesAttending: Charles Silva To: Maya Barron Reviewed by Maya Barron MD on 10/04; All test results are final unless otherwise noted. ADD ON MICROSCOPIC [facility] Ordered by Maya Barron MD on 10/03/2020 Collected: 10/03/2020 Reported: 10/03/2020 19:52 ADD ON MICROSCOPIC See Note (0-5) None Note: NOTES OTHER/NOT INTERPRETED Bacteria UrnS Ql Micro SMALL AMOUNT Bacteria UrnS Ql Micro SMALL AMOUNT Bacteria UrnS Ql Micro L Bacteria UrnS Ql Micro Bacteria UrnS Ql Micro Bacteria UrnS Ql Micro Bacteria UrnS Ql Micro [id number] Bacteria UrnS Ql Micro Bacteria UrnS Ql [...] unless otherwise noted. Reported Physicians [facility] Ordered by Maya Barron MD on 10/03/2020 Collected: 10/03/2020 Reported: 10/03/2020 19:52 Reported Physicians See Note None Note: Reported Physicians:Ordering: Yoli NapolesAttending: Charles Silva To: Maya Barron Reviewed by Maya Barron MD on 10/04; All test results are final unless otherwise noted. UA W/ CULTURE IF ABNORMAL [facility] Ordered by Maya Barron MD on 10/03/2020 Collected: 10/03/2020 Reported: 10/03/2020 19:52 Urobilinogen Ur Ql See Note (0.2-1 EU/dl) None Note: 0.2 EU/dl0.2 EU/[id number] E U/dlResponsible Observer: UROBILINOGEN UROBILINOGEN 300.4500 (C) RBC # Ur Strip NEGATIVE (NEGATIVE) None Note: Responsible Observer: BLOOD BLOOD 300.4652 (C) Prot Ur Ql Strip See Note (NEGATIVE) None Note: [id number] EResponsible Observer: PROTEIN PROTEIN 300.3750 (C) Ketones Ur Ql Strip See Note (NEGATIVE) None Note: [id number] EResponsible Observer: KETONE KETONE 300.3900 (C) Bilirub Ur Ql Strip.auto See Note (NEGATIVE) None Note: [id number] EResponsible Observer: BILIRUBIN BILIRUBIN 300.4550 (C) Glucose Ur Strip.auto-mCnc NEGATIVE (NEGATIVE) None Note: Responsible Observer: GLUCOSE GLUC OSE 300.3850 (C) Appearance Ur See Note (CLEAR) None Note: CLEARCLEARLCLEARResponsible Observ er: APPEARANCE APPEARANCE 300.3400 (A) Color Ur See Note None Note: YELLOWYELLOWLYELLOWResponsible Obs erver: COLOR COLOR 300.3330 (A) Leukocyte esterase Ur Ql Strip See Note (NEGATIVE) None Note: [id number]@DO MICR O!!!!A Culture has been added to this specimen per established criteriaResponsible Observer: LEUKOCYTES LEUKOCYTES 300.3576 (C) Nitrite Ur Ql Strip See Note (NEGATIVE) None Note: [id number] EResponsible Observer: NITRITE NITRITE 300.3652 (B) pH [...] unless otherwise noted. Urine culture [facility] Ordered by Maya Barron MD on 10/03/2020 Collected: 10/03/2020 Reported: 10/04/2020 13:10 Bacteria Ur Cult See Note None Note: NGNo growth.L1NG NOTES See Note None Note: @10/03/201951: Urine culture adde d. RFLXG = CULT.ADD. Reviewed by Maya Barron MD on 10/04; All test results are final unless otherwise noted. Reported Physicians [facility] Ordered by Maya Barron MD on 10/03/2020 Collected: 10/03/2020 Reported: 10/04/2020 13:10 Reported Physicians See Note None Note: Reported Physicians:Ordering: Yoli NapolesAttending: Charles Silva To: Maya Barron Reviewed by Maya Barron MD on 10/04; All test results are final unless otherwise noted. BHCG, QUANTITATIVE [facility] Ordered by Maya Barron MD on 09/18/2020 Collected: 09/18/2020 Reported: 09/18/2020 20:21 B-HCG [facility] [id number] MilliInternationalUnitsPerMilliLiter_[Arbitrary_Con (0-10) H (High) Note: APPROXIMATE GESTATION [...] unless otherwise noted. Reported Physicians [facility] Ordered by Maya Barron MD on 09/18/2020 Collected: 09/18/2020 Reported: 09/18/2020 20:22 Reported Physicians See Note None Note: Reported Physicians:Ordering: Yoli NapolesAttending: Charles Silva To: Maya Barron Reviewed by Maya Barron MD on 09/20; All test results are final unless otherwise noted. CBC W AUTO DIFF [facility] Ordered by Maya Barron MD [...] Auto See Note (0-2) N (Normal) Note: 0.10.5B00410060743.1Responsible Ob observer gravity prospecting: IG% IG% 100.1375 (B) Hct VFr Bld [...] test results are final unless otherwise noted. [facility] Ordered by aMya Barron MD on [...] unless otherwise noted. Reported Physicians [facility] Ordered by Maya Barron MD on 09/18/2020 Collected: 09/18/2020 Reported: 09/18/2020 20:10 Reported Physicians See Note None Note: Reported Physicians:Ordering: Yoli NapolesAttending: Charles Silva To: Maya Barron Reviewed by Maya Barron MD on 09/20; All test results are final unless otherwise noted. TROPONIN [facility] Ordered by Maya Barron MD on 09/18/2020 Collected: 09/18/2020 Reported: 09/18/2020 20:10 Troponin I SerPl-mCnc Less Than 0.015 (0.00-0.09) N (Normal) Note: Less than 0.09 NG/ML Negative 0.10 - 0.77 NG/ML High Risk0.78 NG/ML or Greater PositiveThe WHO defined the cutoff (definition for diagnosis of RI)for this method as 0.78 ng/ml.Responsible Observer: Troponin I Troponin I 600.1101 (G) Reviewed by Maya Barron MD on 09/20; All test results are final unless otherwise noted. Reported Physicians [facility] Ordered by Maya Barron MD on 09/18/2020 Collected: 09/18/2020 Reported: 09/18/2020 20:10 Reported Physicians See Note None Note: Reported Physicians:Ordering: Yoli NapolesAttending: Charles Silva To: Maya Barron Reviewed by Maya Barron MD on 09/20; All test results are final unless otherwise noted. Urine culture [facility] Ordered by Cat Gutierrez RPA on 09/11/2020 Collected: 09/11/2020 Reported: 09/12/2020 13:11 Bacteria Ur Cult See Note None Note: NGNo growth.L1NG NOTES See Note None Note: GEORGIANA PICKARD IN OTHER NAME IN MEDICAL RECORD Reviewed by Cat Gutierrez RPA on 09/12; All test results are final unless otherwise noted. Reported Physicians [facility] Ordered by Cat Gutierrez RPA on 09/11/2020 Collected: 09/11/2020 Reported: 09/12/2020 13:11 Reported Physicians See Note None Note: Reported Physicians:Ordering: Cat ConwayAttending: Cat Gutierrez Reviewed by Cat Gutierrez RPA on 09/12; All test results are final unless otherwise noted. UA W/ CULTURE IF ABNORMAL [facility] Ordered by Maya Barron MD on 09/10/2020 Collected: 09/10/2020 Reported: 09/10/2020 17:48 Urobilinogen Ur Ql See Note (0.2-1 EU/dl) None Note: 0.2 EU/dl0.2 EU/[id number] E U/dlResponsible Observer: UROBILINOGEN UROBILINOGEN 300.4500 (C) RBC # Ur Strip NEGATIVE (NEGATIVE) None Note: Responsible Observer: BLOOD BLOOD 300.4652 (C) Prot Ur Ql Strip See Note (NEGATIVE) None Note: [id number] EResponsible Observer: PROTEIN PROTEIN 300.3750 (C) Ketones Ur Ql Strip See Note (NEGATIVE) None Note: [id number] ble Observer: KETONE KETONE 300.3900 (C) Bilirub Ur Ql Strip.auto See Note (NEGATIVE) None Note: [id number] EResponsible Observer: BILIRUBIN BILIRUBIN 300.4550 (C) Glucose Ur Strip.auto-mCnc NEGATIVE (NEGATIVE) None Note: Responsible Observer: GLUCOSE GLUC OSE 300.3850 (C) Appearance Ur See Note (CLEAR) None Note: CLEARCLEARLCLEARResponsible Observ er: APPEARANCE APPEARANCE 300.3400 (A) Color Ur See Note None Note: YELLOWYELLOWLYELLOWResponsible Obs erver: COLOR COLOR 300.3330 (A) Leukocyte esterase Ur Ql Strip See Note (NEGATIVE) None Note: [id number] EResponsible Observer: LEUKOCYTES LEUKOCYTES 300.3576 (C) Nitrite Ur Ql Strip See Note (NEGATIVE) None Note: [id number] EResponsible Observer: NITRITE NITRITE 300.3652 (B) pH [...] unless otherwise noted. Reported Physicians [facility] Ordered by Maya Barron MD on 09/10/2020 Collected: 09/10/2020 Reported: 09/10/2020 17:48 Reported Physicians See Note None Note: Reported Physicians:Ordering: Les Vanegas: Fady Raza To: Maya Barron Reviewed by Maya Barron MD on 09/11; All test results are final unless otherwise noted. BHCG, QUANTITATIVE [facility] Ordered by Maya Barron MD on 09/10/2020 Collected: 09/10/2020 Reported: 09/10/2020 15:48 B-HCG [facility] [address] MilliInternationalUnitsPerMilliLiter_[Arbitrary_Con (0-10) H (High) Note: @Instrument will [...] unless otherwise noted. Reported Physicians [facility] Ordered by Maya Barron MD on 09/10/2020 Collected: 09/10/2020 Reported: 09/10/2020 15:49 Reported Physicians See Note None Note: Reported Physicians:Ordering: Les Vanegas: Fady Raza To: Maya Barron Reviewed by Maya Barron MD on 09/11; All test results are final unless otherwise noted. ABO/Rh Type [facility] Ordered by Maya [...] unless otherwise noted. Reported Physicians [facility] Ordered by Maya Barron MD on 09/10/2020 Collected: 09/10/2020 Reported: 09/10/2020 15:43 Reported Physicians See Note None Note: Reported Physicians:Ordering: Les Vanegastending: Fady Raza To: Maya Barron Reviewed by Maya Barron MD on 09/11; All test results are final unless otherwise noted. COVID QUEST [facility] Ordered by Maya Barron MD [...] findings,re- testing should be considered in consultation [facility] authorities. Laboratory test results shouldalways be considered in the context of clinicalobservations and epidemiological data in making a finaldiagnosis and patient management decisions.Please review the "Fact Sheets" and FDA authorizedlabeling available for health care providers andpatients using the following websites:https://www.[employer] .com/home/Covid-19/HCP/NAAT/fact-ebzfo8leuol://www.[employer]/home/Cov id-19/Patients/NAAT/fact-ohqou4Qsaq test has been authorized by the FDA under anEmergency Use Authorization (EUA) for use by authorizedlaboratories.Due to the current public health emergency, [employer] is receiving a high volume of samples [...] information about COVID-19 can be foundat the [employer] website:www.[employer].com/Covid19.THIS TEST WAS PERFORMED AT:[facility] [address]HKJORJCLAUDY ONEILLesponsible Observer: COVID-19 COVID-19 ТАТЬЯНА (SARS-CoV-2) [id number] 914.0025 ([employer]) Reviewed by Maya Barron MD on 08/25; All test results are final unless otherwise noted. Reported Physicians [facility] Ordered by Maya Barron MD on 08/23/2020 Collected: 08/23/2020 Reported: 08/25/2020 03:57 Reported Physicians See Note None Note: Reported Physicians:Ordering: Sana Recinosending: Sammie Ann To: Maya Barron Reviewed by Maya Barron MD on 08/25; All test results are final unless otherwise noted. Rapid Strep [facility] Ordered by Maya Barron MD on 08/15/[address] [place] [address], [phone] Collected: 08/15/2020 Reported: 08/15/2020 11:47 tel : strep antigen normal (negative) N (Normal) Reviewed by Maya Barron MD on 08/15; All test results are final unless otherwise noted. Urinalysis w/out microscopy [facility] Ordered by Maya Barron MD on 08/15/2020 [facility] [place], [address] Specimen Source: Urine Collected: 08/15/2020 Reporte d: [...] noted. Extended hours FLU/COV2 NAAT [facility] Ordered by Maya Barron MD on 08/15/2020 Collected: 08/15/2020 Reported: 08/15/2020 15:55 Extended hours FLU/COV2 NAAT See Note None Note: TNPNo Reportable ResultLTNPNo Repo rtable JnuvauV0MZD NOTES See Note None Note: GEORGIANA PICKARD IN OTHER NAME IN MEDICAL RECORD Reviewed by Maya Barron MD on 08/16; All test results are final unless otherwise noted. Reported Physicians [facility] Ordered by Maya Barron MD on 08/15/2020 Collected: 08/15/2020 Reported: 08/15/2020 15:55 Reported Physicians See Note None Note: Reported Physicians:Ordering: Maya AlvarengaAttending: Maya Barron Reviewed by Maya Barron MD on 08/16; All test results are final unless otherwise noted. Sweta Raquel SARS/FLU [facility] Ordered by Maya Barron MD on 08/15/2020 Collected: 08/15/2020 Reported: 08/15/2020 15:55 Sweta Raquel SARS/FLU See Note None Note: Sweta Raquel is a rapid, automated q ualitative anddifferentiation of Influenza type A,B and EFOT-LDE-8GYJW-RT-PCR testNORMAL VALUE IS "NOT DETECTED".Limitations of the sweta raquel Influenza A/B & AJVZ-BQI-3bgtje method.Modifications to manufacturers recommendation and proceduresmay alter performance of the test.Negative results do not preclude Influenza A,B or SARS- SZS3fvrduqdsss and should not be used as the [...] out diseases caused by other bacterialor viral pathogens.34270-9OAZL-qpk CoV RNA Resp Ql ТАТЬЯНА+probeLNNSARS SARS-COV-2 NOT [id number]-GKP-2 NOT [id number] RNA Resp Ql ТАТЬЯНА+probeLNNFLUAInfluenza A Not [id number] A Not Bfxazsjs82369-3PGUGY RNA Resp Ql ТАТЬЯНА+probeLNNINBInfluenza B Not [id number] B Not Detected NOTES See Note None Note: GEORGIANA PICKARD IN OTHER NAME IN MEDICAL RECORD Reviewed by Maya Barron MD on 08/18; All test results are final unless otherwise noted. Throat culture [facility] Ordered by Maya Barron MD on 08/15/2020 Collected: 08/15/2020 Reported: 08/17/2020 06:37 Throat culture results Normal Deisy None Reviewed by Maya Barron MD on 08/18; All test results are final unless otherwise noted. Reported Physicians [facility] Ordered by Maya Barron MD on 08/15/2020 Collected: 08/15/2020 Reported: 08/17/2020 06:37 Reported Physicians See Note None Note: Reported Physicians:Ordering: Maya AlvarengaAttending: Maya Barron Reviewed by Maya Barron MD on 08/18; All test results are final unless otherwise noted. HPVI [facility] Ordered by Cat Gutierrez RPA on 08/09/2020 Collected: 08/09/2020 Reported: 08/15/2020 06:53 Thin Prep Vag See Note None Note: See scanned reportSee scanned repo rtLSee scanned reportResponsible Observer: TP w/HPV if ASC Thinprep w/HPV if ASCUS 805.1454 ([facility]) NOTES See Note None Note: JTN55-78Wufnfcmnsn Technique: BRUS H-SPATULABody Site: CERVIX Reviewed by Cat Gutierrez RPA on 08/15; All test results are final unless otherwise noted. Reported Physicians [facility] Ordered by Cat Gutierrez RPA on 08/09/2020 Collected: 08/09/2020 Reported: 08/15/2020 06:53 Reported Physicians See Note None Note: Reported Physicians:Ordering: Atte nding: Rigo Gutierrez To: Maya Barron Reviewed by Cat Gutierrez RPA on 08/15; All test results are final unless otherwise noted. GCAMP [facility] Ordered by Cat Gutierrez RPA on 08/09/2020 Collected: 08/09/2020 Reported: 08/11/2020 06:52 C trach rRNA XXX Ql ТАТЬЯНА+probe See Note (NOT DETECTED) None Note: NOT DETECTEDNOT [id number] 6NOT DETECTEDResponsible Observer: C.Trach RNA Chlamydia trachomatis DNA-ТАТЬЯНА [id number] 913.9900 ([facility] [employer]) N gonorrhoea rRNA XXX Ql ТАТЬЯНА+probe See Note (NOT DETECTED) None Note: NOT DETECTEDNOT [id number] 6NOT DETECTEDResponsible Observer: GC RNA Neisseria gonorrhoeae DNA -ТАТЬЯНА [id number] 913.9905 ([facility]) Chlamydia/GC DNA Note SEE NOTE None Note: The analytical performance charact eristics of thisassay, when used to test SurePath(TM) specimens have beendetermined by [employer]. The modifications havenot been cleared or approved by the FDA. This assay hasbeen validated pursuant to the CLIA regulations and isused for clinical purposes.For additional information, please refer tohttps://education.[employer]/faq/NSE129(This link is being provided for information/educational purposes only.)THIS TEST WAS PERFORMED AT:[facility] [address]OSEAS MEANS,MDResponsible Observer: GC/Chlam Note Chlamydia/GC DNA Note [id number] 913.9907 (A) NOTES See Note None Note: PICKARD:IN OTHER NAME IN MEDICAL RECORD Reviewed by Cat Gutierrez RPA on 08/12; All test results are final unless otherwise noted. Reported Physicians [facility] Ordered by Cat Gutierrez RPA on 08/09/2020 Collected: 08/09/2020 Reported: 08/11/2020 06:52 Reported Physicians See Note None Note: Reported Physicians:Ordering: Atte nding: Cat GutierrezCopyifan To: Maya Barron Reviewed by Cat Gutierrez RPA on 08/12; All test results are final unless otherwise noted. AFFIRM [facility] Ordered by Cat Gutierrez RPA on 08/09/2020 Collected: 08/09/2020 Reported: 08/11/2020 06:52 Dionna species DNA Probe NOT DETECTED (NOT DETECTED) None Note: THIS TEST WAS PERFORMED AT:[facility] [address]FGIHDN MERATI,MDResponsible Observer: Dionna DNA Dionna species DNA Probe [id number] 913.2350 ([facility]) Gardnerella DNA Probe DETECTED (NOT DETECTED) H (High) Note: Increased levels of G. vaginalis m ay not be significantin the absence of signs and symptoms of bacterialvaginosis.Responsible Observer: Gardnerella DNA Gardnerella DNA Probe [id number] 913.2345 ([facility]) Trichomonas DNA Probe NOT DETECTED (NOT DETECTED) None Note: Responsible Observer: Trichomonas DNA Trichomonas DNA Probe 53281913 913.2340 ([facility] [employer]) NOTES See Note None Note: PICKARD:IN OTHER NAME IN MEDICAL RECORD Reviewed on 08/11/2020; All test result s are final unless otherwise noted. Reported Physicians [facility] Ordered by Cat Gutierrez RPA on 08/09/2020 Collected: 08/09/2020 Reported: 08/11/2020 06:52 Reported Physicians See Note None Note: Reported Physicians:Ordering: Jannet barton: Rigo Gutierrez To: Maya Barron Reviewed on 08/11/2020; All test result s are final unless otherwise noted. ADD ON MICROSCOPIC [facility] Ordered by Cat Gutierrez RPA on 08/09/2020 Collected: 08/09/2020 Reported: 08/09/2020 12:23 ADD ON MICROSCOPIC See Note (0-5) H (High) Note: NOTES OTHER/NOT INTERPRETED Bacteria UrnS Ql Micro SMALL AMOUNT Bacteria UrnS Ql Micro SMALL AMOUNT Bacteria UrnS Ql Micro L Bacteria UrnS Ql Micro Bacteria UrnS Ql Micro Bacteria UrnS Ql Micro Bacteria UrnS Ql Micro [id number] Bacteria UrnS Ql Micro Bacteria UrnS Ql [...] Ql Micro Mucous Threads UrnS Ql Micro 8014283715 Mucous Threads UrnS Ql Micro Mucous Threads UrnS Ql Micro MODERATE AMOUNT WBC # Ur Manual 5-8 @08/09/20 1210: UA W/ MICRO added. RFLXG = UMIC.Method of Collection:: Clean CatchResponsible Observer: WBC WBC 300.5000 (A) Reviewed by Cat Gutierrez RPA on 08/12; All test results are final unless otherwise noted. Reported Physicians [facility] Ordered by Cat Gutierrez RPA on 08/09/2020 Collected: 08/09/2020 Reported: 08/10/2020 17:47 Reported Physicians See Note None Note: Reported Physicians:Ordering: Jannet barton: Rigo Gutierrez To: Maya Barron Reviewed by Cat Gutierrez [facility] on 08/12; All test results are final unless otherwise noted. MEDMATCH [facility] Ordered by Cat Gutierrez [facility] on 08/09/2020 Collected: 08/09/2020 Reported: 08/13/2020 15:56 MEDMATCH See scanned report None Note: Responsible Observer: MEDMATCH MED MATCH 910.42382 ([facility]) Reviewed by Cat Gutierrez [facility] on 08/14; All test results are final unless otherwise noted. Reported Physicians [facility] Ordered by Cat Gutierrez [facility] on 08/09/2020 Collected: 08/09/2020 Reported: 08/13/2020 15:56 Reported Physicians See Note None Note: Reported Physicians:Ordering: Atte ndcristiane: Rigo Gutierrez To: Maya Barron Reviewed by Cat Gutierrez [facility] on 08/14; All test results are final unless otherwise noted. URINALYSIS [facility] Ordered by Cat Gutierrez [facility] on 08/09/2020 Collected: 08/09/2020 Reported: 08/09/2020 12:23 Urobilinogen Ur Ql See Note (0.2-1 EU/dl) None Note: 1 EU/dl1 EU/lbU32523034484 EU/dlRe sponsible Observer: UROBILINOGEN UROBILINOGEN 300.4500 (C) RBC # Ur Strip NEGATIVE (NEGATIVE) None Note: Responsible Observer: BLOOD BLOOD 300.4650 (C) Prot Ur Ql Strip See Note (NEGATIVE) None Note: [id number] ble Observer: PROTEIN PROTEIN 300.3750 (C) Ketones Ur Ql Strip See Note (NEGATIVE) None Note: [id number] ble Observer: KETONE KETONE 300.3900 (C) Bilirub Ur Ql Strip.auto See Note (NEGATIVE) None Note: [id number] EResponsible Observer: BILIRUBIN BILIRUBIN 300.4550 (C) Glucose Ur Strip.auto-mCnc NEGATIVE (NEGATIVE) None Note: Responsible Observer: GLUCOSE GLUC OSE 300.3850 (C) Appearance Ur See Note (CLEAR) None Note: CLEARCLEARLCLEARResponsible Observ er: APPEARANCE APPEARANCE 300.3400 (A) Color Ur See Note None Note: DARK YELLOWDARK YELLOWLDARK YELLOW Responsible Observer: COLOR COLOR 300.3300 (A) Leukocyte esterase Ur Ql Strip See Note (NEGATIVE) None Note: [id number]@DO MICR O!!!!Responsible Observer: LEUKOCYTES LEUKOCYTES 300.3575 (C) Nitrite Ur Ql Strip See Note (NEGATIVE) None Note: [id number] EResponsible Observer: NITRITE NITRITE 300.3650 (B) pH [...] unless otherwise noted. Urine culture [facility] Ordered by Cat Gutierrez RPA on 08/09/2020 Collected: 08/09/2020 Reported: 08/10/2020 08:33 Bacteria Ur Cult See Note None Note: NGNo growth.L1NG Reviewed by Cat Gutierrez RPA on 08/14; All test results are final unless otherwise noted. Type and Screen [facility] Ordered by Cat Gutierrez RPA [...] unless otherwise noted. Reported Physicians [facility] Ordered by Cat Gutierrez RPA on 08/09/2020 Collected: 08/09/2020 Reported: 08/09/2020 12:39 Reported Physicians See Note None Note: Reported Physicians:Ordering: Cat ConwayAttending: Rigo Gutierrez To: Maya Barron Reviewed by Cat Gutierrez RPA on 08/10; All test results are final unless otherwise noted. Varicella-Zoster IgG Antibody [facility] Ordered by Cat Gutierrez RPA [...] Antibody Immunity Screen, ACIF.THIS TEST WAS PERFORMED AT:[facility] [address]WSCVOR ME RATI,MDResponsible Observer: VARICELLA IGG Varicella-Zoster IgG Antibody [id number] 010.0894 ([facility] [employer]) NOTES See Note None Note: Patient Street Address: [facility] [address] Code: [address] Reviewed by Cat Gutierrez RPA on 08/12; All test results are final unless otherwise noted. HCV RFX ТАТЬЯНА [facility] Ordered by Cat Gutierrez RPA on 08/09/2020 Collected: 08/09/2020 Reported: 08/10/2020 17:47 HCV Ab Ser Ql See Note (NON-REACTIVE) None Note: EED-ULXVRTUYYTV-[id number] 7NON-REACTIVEResponsible Observer: HEP C ANTIBODY Hepatitis C Antibody [id number] 914.8305 ([facility] [employer]) HCV RNA Qualitative (ТАТЬЯНА) 0.54 (<1.00) None Note: HCV antibody was non-reactive. The re is no laboratoryevidence of HCV infection.In most cases, no further action is required. However,if recent HCV exposure is suspected, a test for HCV RNA(test code 89500) is suggested.For additional information please refer tohttp://education.[employer]/faq/BLR01s5(This link is being provided for informational/educational purposes only.)THIS TEST WAS PERFORMED AT:[facility] [address]KACLAUDY BURGESSesponsible Observer: SIG TO C/O SIGNAL TO CUTOFF [id number] 424.3378 ([facility] [employer]) NOTES See Note None Note: Patient Street Address: [address] [place] [address] City: [facility] State: [facility] Zip Code: [address] Reviewed by Cat Gutierrez RPA on 08/12; All test results are final unless otherwise noted. Reported Physicians [facility] Ordered by Cat Gutierrez RPA on 08/09/2020 Collected: 08/09/2020 Reported: 08/10/2020 17:47 Reported Physicians See Note None Note: Reported Physicians:Ordering: Atte ndcristiane: Rigo Gutierrez To: Maya Barron Reviewed by Cat Gutierrez RPA on 08/12; All test results are final unless otherwise noted. CBC [facility] Ordered by Cat Gutierrez RPA [...] Auto See Note (0-2) N (Normal) Note: [id number] Ob observer gravity prospecting: IG% IG% 100.1375 (B) Hct VFr Bld [...] final unless otherwise noted. TSH [facility] Ordered by Cat Gutierrez RPA on 08/09/2020 Collected: 08/09/2020 Reported: 08/09/2020 14:24 TSH SerPl DL<=0.005 mIU/L-aCnc 1.18 MicroInternationalUnitsPerMilliLiter_[Arbitrary_Con (0.35-5. 50) N (Normal) Note: Responsible Observer: TSH TSH 600 .7055 (D) Reviewed by Cat Gutierrez RPA on 08/14; All test results are final unless otherwise noted. Lead (Venous) Wh.Bld [facility] Ordered by Cat Gutierrez RPA on 08/09/2020 Collected: 08/09/2020 Reported: 08/10/2020 17:47 Lead Bld-sCnc <1 (<5) None Note: See Note 1Note 1This test was faith granados and its analytical performancecharacteristics have been determined by [employer]. It has not been cleared or approved by theA. This assay has been validated pursuant to the CLIAregulations and is used for clinical purposes.THIS TEST WAS PERFORMED AT:[facility] [id number] MERATI,MDResponsible Observer: Lead, WB Lead, Whole Blood [id number] 911.2190 ([facility]) NOTES See Note None Note: Patient Street Address: [address] [place] [address] [address] [place] [facility] [facility] Zip Code: [address] Reviewed by Cat Gutierrez RPA on 08/14; All test results are final unless otherwise noted. ncPN REF [facility] Ordered by Cat Gutierrez RPA on 08/09/2020 Collected: 08/09/2020 Reported: 08/13/2020 15:26 T pallidum Ab Ser Ql Aggl See Note (Nonreactive) None Note: [id number] onreactiveResponsible Observer: TP-PA Treponema pallidum Ab (TP-PA) [id number] 908.0286 ([facility]) HIV1 RNA SerPl Ql ТАТЬЯНА+probe See Note None Note: TNPNo Reportable ResultLTNPNo Repo rtable ResultLLEP.LIVENTNPResponsible Observer: HIV 1 RNA, QL T HIV 1 RNA, QL TMA [id number] 908.0254 ([facility]) HBV surface Ag SerPl Ql IA See Note (NON-REACTIVE) None Note: HQL-DCPLIZOCMMY-[id number] 5NON-REACTIVEResponsible Observer: HBSAG Hepatitis B Surface Antigen [id number] .2004 ([facility]) RUBV IgG SerPl IA-aCnc 1.76 None Note: Index Interpretatio n ----- <0.90 Not consistent with immunity 0.90-0.99 Equivocal > or = 1.00 Consistent with immunityThe presence of rubella IgG antibody suggestsimmunization or past or current infection withrubella virus.THIS TEST WAS PERFORMED AT:[facility] [id number] MERATI,MDResponsible Observer: Rubella IgG Ab Rubella IgG Ab [id number] 911.2840 ([facility]) HIV1 Ab SerPlBld Ql IA.rapid See Note None Note: TNPNo Reportable ResultLTNPNo Repo rtable ResultLLEP.LIVENTNPResponsible Observer: HIV 1 AB HIV 1 AB [id number] 908.0250 ([facility]) HBsAg Confirmation See Note None Note: TNPNo Reportable ResultLTNPNo Repo rtable ResultLLEP.LIVENTNPResponsible Observer: HBsAg Confirm HBsAg Confirmation [id number] 910.2006 ([facility]) HIV (1&2) Screen, 4th Gen NON-REACTIVE (NON-REACTIVE) [...] for this purpose.For additional information please refer tohttp://education.Retailo/faq/IWM826(This link is being provided for informational/educational purposes only.)The performance of this assay has not been clinicallyvalidated in patients less than 2 years old.THIS TEST WAS PERFORMED AT:[facility] [id number] ONEILLesponsible Observer: HIV ABS HIV (1&2) Screen, 4th Gen [id number] 908.0228 ([facility]) Reviewed by Cat Gutierrez RPA on 08/14; All test results are final unless otherwise noted. Reported Physicians [facility] Ordered by Cat Gutierrez RPA on 08/09/2020 Collected: 08/09/2020 Reported: 08/13/2020 15:27 Reported Physicians See Note None Note: Reported Physicians:Ordering: Atte nding: Gaudencio GutierrezanaCopy To: Maya Barron Reviewed by Cat Gutierrez RPA on 08/14; All test results are final unless otherwise noted. BHCG, QUANTITATIVE [facility] Ordered by Cat Gutierrez RPA on 08/08/2020 Collected: 08/08/2020 Reported: 08/08/2020 11:53 B-HCG [facility] [address] MilliInternationalUnitsPerMilliLiter_[Arbitrary_Con (0-10) H (High) Note: @Instrument will [...] unless otherwise noted. Reported Physicians [facility] Ordered by Cat Gutierrez RPA on 08/08/2020 Collected: 08/08/2020 Reported: 08/08/2020 11:54 Reported Physicians See Note None Note: Reported Physicians:Ordering: Atte nding: Brenda, GaudencioanaCopy To: Maya Barron Reviewed by Cat Gutierrez RPA on 08/08; All test results are final unless otherwise noted. Type and Screen [facility] Ordered by Cat Gutierrez RPA [...] unless otherwise noted. Reported Physicians [facility] Ordered by Cat Gutierrez RPA on 08/01/2020 Collected: 08/01/2020 Reported: 08/01/2020 06:03 Reported Physicians See Note None Note: Reported Physicians:Ordering: Aj Ferreiraending: Jos Rivas To: Maya Barron Reviewed by Cat Gutierrez RPA on 08/01; All test results are final unless otherwise noted. BHCG, QUANTITATIVE [facility] Ordered by Cat Gutierrez RPA on 08/01/2020 Collected: 08/01/2020 Reported: 08/01/2020 02:26 B-HCG [facility] [address] MilliInternationalUnitsPerMilliLiter_[Arbitrary_Con (0-10) H (High) Note: @Instrument will [...] unless otherwise noted. Reported Physicians [facility] Ordered by Cat Gutierrez RPA on 08/01/2020 Collected: 08/01/2020 Reported: 08/01/2020 02:26 Reported Physicians See Note None Note: Reported Physicians:Ordering: Aj Ferreiraending: Jos Rivas To: Maya Barron Reviewed by Cat Gutierrez RPA on 08/01; All test results are final unless otherwise noted. CBC W AUTO DIFF [facility] Ordered by Cat Gutierrez RPA [...] Auto See Note (0-2) N (Normal) Note: [id number] Ob observer gravity prospecting: IG% IG% 100.1375 (B) Hct VFr Bld [...] test results are final unless otherwise noted. [facility] Ordered by Cat Gutierrez [...] unless otherwise noted. Reported Physicians [facility] Ordered by Cat Gutierrez RPA on 08/01/2020 Collected: 08/01/2020 Reported: 08/01/2020 02:26 Reported Physicians See Note None Note: Reported Physicians:Ordering: Aj Ferreiraending: Jos Rivas To: Maya Barron Reviewed by Cat Gutierrez RPA on 08/01; All test results are final unless otherwise noted. UA W/ CULTURE IF ABNORMAL [facility] Ordered by Cat Gutierrez RPA on 08/01/2020 Collected: 08/01/2020 Reported: 08/01/2020 01:01 Urobilinogen Ur Ql See Note (0.2-1 EU/dl) None Note: 0.2 EU/dl0.2 EU/[id number] E U/dlResponsible Observer: UROBILINOGEN UROBILINOGEN 300.4500 (C) RBC # Ur Strip SMALL (NEGATIVE) None Note: @DO MICRO!!!!Responsible Observer: BLOOD BLOOD 300.4652 (C) Prot Ur Ql Strip See Note (NEGATIVE) None Note: [id number] EResponsible Observer: PROTEIN PROTEIN 300.3750 (C) Ketones Ur Ql Strip See Note (NEGATIVE) None Note: 15 mg/dL15 mg/[id number] mg/d LResponsible Observer: KETONE KETONE 300.3900 (C) Bilirub Ur Ql Strip.auto See Note (NEGATIVE) None Note: [id number] EResponsible Observer: BILIRUBIN BILIRUBIN 300.4550 (C) Glucose Ur Strip.auto-mCnc NEGATIVE (NEGATIVE) None Note: Responsible Observer: GLUCOSE GLUC OSE 300.3850 (C) Appearance Ur See Note (CLEAR) None Note: CLEARCLEARLCLEARResponsible Observ er: APPEARANCE APPEARANCE 300.3400 (A) Color Ur See Note None Note: YELLOWYELLOWLYELLOWResponsible Obs erver: COLOR COLOR 300.3330 (A) Leukocyte esterase Ur Ql Strip See Note (NEGATIVE) None Note: [id number]@DO MICR O!!!!A Culture has been added to this specimen per established criteriaResponsible Observer: LEUKOCYTES LEUKOCYTES 300.3576 (C) Nitrite Ur Ql Strip See Note (NEGATIVE) None Note: [id number] EResponsible Observer: NITRITE NITRITE 300.3652 (B) pH [...] unless otherwise noted. Urine culture [facility] Ordered by Cat Gutierrez [facility] [...] unless otherwise noted. Reported Physicians [facility] Or[facility] by [facility]rez [facility] on 08/01/2020 Collected: 08/01/2020 Reported: 08/02/2020 07:41 Reported Physicians See Note None Note: Reported Physicians:Ordering: Aj Ferreiraending: Jos Rivas To: Maya Barron Reviewed by Cat Gutierrez [facility] on 08/02; All test results are final unless otherwise noted. ADD ON MICROSCOPIC [facility] Ordered by Cat [facility]ierrez [facility] on 08/01/2020 Collected: 08/01/2020 Reported: 08/01/2020 01:01 ADD ON MICROSCOPIC See Note (0-5) None Note: NOTES OTHER/NOT INTERPRETED Bacteria UrnS Ql Micro MODERATE AMOUNT Bacteria UrnS Ql Micro MODERATE AMOUNT Bacteria UrnS Ql Micro L Bacteria UrnS Ql Micro Bacteria UrnS Ql Micro Bacteria UrnS Ql Micro Bacteria UrnS Ql Micro [id number] Bacteria UrnS Ql Micro Bacteria UrnS Ql [...] unless otherwise noted. Reported Physicians [facility] Ordered by Cat Gutierrez RPA on 08/01/2020 Collected: 08/01/2020 Reported: 08/01/2020 01:01 Reported Physicians See Note None Note: Reported Physicians:Ordering: Aj Ferreiraending: Jos Rivas To: Maya Barron Reviewed by Cat Gutierrez RPA on 08/01; All test results are final unless otherwise noted. BHCG, QUANTITATIVE [facility] Ordered by Cat Gutierrez RPA on 07/31/2020 Collected: 07/31/2020 Reported: 07/31/2020 16:53 [facility] [address] MilliInternationalUnitsPerMilliLiter_[Arbitrary_Con (0-10) H (High) Note: @Instrument will [...] unless otherwise noted. Reported Physicians [facility] Ordered by Cat Gutierrez RPA on 07/31/2020 Collected: 07/31/2020 Reported: 07/31/2020 16:53 Reported Physicians See Note None Note: Reported Physicians:Ordering: Atte memeing: Cat Gutierrez Reviewed by Cat Gutierrez RPA on 08/01; All test results are final unless otherwise noted. UA W/ CULTURE IF ABNORMAL [facility] Ordered by Cat Gutierrez RPA on 07/27/2020 Collected: 07/27/2020 Reported: 07/27/2020 21:36 Urobilinogen Ur Ql See Note (0.2-1 EU/dl) None Note: 0.2 EU/dl0.2 EU/[id number] E U/dlResponsible Observer: UROBILINOGEN UROBILINOGEN 300.4500 (C) RBC # Ur Strip NEGATIVE (NEGATIVE) None Note: Responsible Observer: BLOOD BLOOD 300.4652 (C) Prot Ur Ql Strip See Note (NEGATIVE) None Note: [id number] EResponsible Observer: PROTEIN PROTEIN 300.3750 (C) Ketones Ur Ql Strip See Note (NEGATIVE) None Note: [id number] EResponsible Observer: KETONE KETONE 300.3900 (C) Bilirub Ur Ql Strip.auto See Note (NEGATIVE) None Note: [id number] EResponsible Observer: BILIRUBIN BILIRUBIN 300.4550 (C) Glucose Ur Strip.auto-mCnc NEGATIVE (NEGATIVE) None Note: Responsible Observer: GLUCOSE GLUC OSE 300.3850 (C) Appearance Ur See Note (CLEAR) None Note: CLEARCLEARLCLEARResponsible Observ er: APPEARANCE APPEARANCE 300.3400 (A) Color Ur See Note None Note: YELLOWYELLOWLYELLOWResponsible Obs erver: COLOR COLOR 300.3330 (A) Leukocyte esterase Ur Ql Strip See Note (NEGATIVE) None Note: [id number]@DO MICR O!!!!A Culture has been added to this specimen per established criteriaResponsible Observer: LEUKOCYTES LEUKOCYTES 300.3576 (C) Nitrite Ur Ql Strip See Note (NEGATIVE) None Note: [id number] EResponsible Observer: NITRITE NITRITE 300.3652 (B) pH Ur Strip 7.5 (5-8) None Note: Responsible Observer: PH PH 300.3 450 (C) Sp Gr Ur Refractometry 1.008 (1.005-1.030) None Note: Responsible Observer: SP GRAVITY U RINE SPECIFIC GRAVITY-MAN 300.3475 (C) URINE MICROSCOPIC? (CIF) Microscopic Added None Note: Responsible Observer: UA URINE HSAWN ROSCOPIC PENDING 300.4665 (D) NOTES See Note None Note: Reason for ordering culture: Abnor mal findings UA@07/27/20 2118: UA W/ MICRO added. RFLXG = UMIC CIF.Method of Collection:: Voided Reviewed by Cat Gutierrez [facility] on 07/31; All test results are final unless otherwise noted. Urine culture [facility] on 07/27/2020 Collected: 07/27/2020 Reported: 07/29/2020 07:36 Urine culture result 50,000 CFU/ML Lactobacilli no senst done None NOTES See Note None Note: @07/27/207: Urine culture adde d. RFLXG = CULT.ADD. Reviewed by [facility] on 07/31; All test results are final unless otherwise noted. Reported Physicians [facility] Ordered by [facility] on 07/27/2020 Collected: 07/27/2020 Reported: 07/29/2020 07:37 Reported Physicians See Note None Note: Reported Physicians:Ordering: Daquan BustamanteAttending: Ariella Good To: Maya Barron Reviewed by Cat [facility] on 07/31; All test results are final unless otherwise noted. ADD ON MICROSCOPIC [facility] Ordered by [facility] on 07/27/2020 Collected: 07/27/2020 Reported: 07/27/2020 21:36 ADD ON MICROSCOPIC See Note (0-5) None Note: NOTES OTHER/NOT INTERPRETED Bacteria UrnS Ql Micro SMALL AMOUNT Bacteria UrnS Ql Micro SMALL AMOUNT Bacteria UrnS Ql Micro L Bacteria UrnS Ql Micro Bacteria UrnS Ql Micro Bacteria UrnS Ql Micro Bacteria UrnS Ql Micro [id number] Bacteria UrnS Ql Micro Bacteria UrnS Ql [...] unless otherwise noted. Reported Physicians [facility] Ordered by Cat Gutierrez RPA on 07/27/2020 Collected: 07/27/2020 Reported: 07/27/2020 21:37 Reported Physicians See Note None Note: Reported Physicians:Ordering: Daquan BustamanteAttending: Daquan GoodCopy To: Maya Barron Reviewed by Cat Gutierrez RPA on 07/28; All test results are final unless otherwise noted. BHCG, QUANTITATIVE [facility] Ordered by Cat Gutierrez RPA on 07/27/2020 Collected: 07/27/2020 Reported: 07/27/2020 22:08 [facility] MilliInternationalUnitsPerMilliLiter_[Arbitrary_Con (0-10) H (High) Note: [...] unless otherwise noted. Reported Physicians [facility] Ordered by Cat Gutierrez RPA on 07/27/2020 Collected: 07/27/2020 Reported: 07/27/2020 22:08 Reported Physicians See Note None Note: Reported Physicians:Ordering: Daquan BustamanteAttending: Daquan GoodCopyifan To: Maya Barron Reviewed by Cat Gutierrez [facility] on 07/28; All test results are final unless otherwise noted. CMP [facility] Ordered by Cat Gutierrez [facility] on 07/27/2020 Collected: 07/27/2020 Reported: 07/27/2020 20:36 [...] unless otherwise noted. Reported Physicians [facility] Ordered by Cat Gutierrez RPA on 07/27/2020 Collected: 07/27/2020 Reported: 07/27/2020 20:37 Reported Physicians See Note None Note: Reported Physicians:Ordering: Daquan BustamanteAttending: Daquan GoodCopyifan To: Maya Barron Reviewed by Cat Gutierrez [facility] on 07/28; All test results are final unless otherwise noted. Type and Screen [facility] Ordered by Cat Gutierrez [facility] [...] give date): N Reviewed by Cat Gutierrez [facility] on 07/28; All test results are final unless otherwise noted. Reported Physicians [facility] Ordered by Cat Gutierrez [facility] on 07/27/2020 Collected: 07/27/2020 Reported: 07/27/2020 20:48 Reported Physicians See Note None Note: Reported Physicians:Ordering: Daquan BustamanteAttending: Ariella Good To: Maya Barron Reviewed by Cat Gutierrez [facility] on 07/28; All test results are final unless otherwise noted. CBC W AUTO DIFF [facility] Ordered by Cat Gutierrez [facility] [...] Auto See Note (0-2) N (Normal) Note: [id number] Ob observer gravity prospecting: IG% IG% 100.1375 (B) Hct VFr Bld [...] unless otherwise noted. Reported Physicians [facility] Ordered by Cat Gutierrez RPA on 07/27/2020 Collected: 07/27/2020 Reported: 07/27/2020 20:11 Reported Physicians See Note None Note: Reported Physicians:Ordering: Daquan BustamanteAttending: Ariella Good To: Maya Barron Reviewed by Cat Gutierrez RPA on 07/28; All test results are final unless otherwise noted. BHCG, QUANTITATIVE [facility] Ordered by Maya Barron MD on 07/26/2020 Collected: 07/26/2020 Reported: 07/26/2020 16:48 B[facility] 4155 MilliInternationalUnitsPerMilliLiter_[Arbitrary_Con (0-10) H (High) Note: @Instrument [...] unless otherwise noted. Reported Physicians [facility] Ordered by Maya Barron MD on 07/26/2020 Collected: 07/26/2020 Reported: 07/26/2020 16:48 Reported Physicians See Note None Note: Reported Physicians:Ordering: Maya AlvarengaAttending: Maya Barron Reviewed by Maya Barron MD on 07/27; All test results are final unless otherwise noted. Extended hours FLU/COV2 NAAT [facility] Ordered by Bandar Cleveland PA-C on 07/25/2020 Collected: 07/25/2020 Reported: 07/25/2020 18:47 Extended hours FLU/COV2 NAAT See Note None Note: TNPNo Reportable ResultLTNPNo Repo rtable CeccvfQ1EIA Reviewed by Bandar Cleveland PA-C on ; All test results are final unless otherwise noted. Reported Physicians [facility] Ordered by Bandar Cleveland PA-C on 07/25/2020 Collected: 07/25/2020 Reported: 07/25/2020 18:47 Reported Physicians See Note None Note: Reported Physicians:Ordering: Janice Wilsonending: Kmai Cleveland To: Health, Public Reviewed by Bandar Cleveland PA-C on 1; All test results are final unless otherwise noted. Sweta Raquel SARS/FLU [facility] Ordered by Bandar Cleveland PA-C on 07/25/2020 Collected: 07/25/2020 Reported: 07/25/2020 18:47 Sweta Raquel SARS/FLU See Note None Note: Sweta Raquel is a rapid, automated q ualitative anddifferentiation of Influenza type A,B and MBSA-TTR-0JRCZ-RT-PCR testNORMAL VALUE IS "NOT DETECTED".Limitations of the sweta raquel Influenza A/B & NNIH-FZC-6kvtml method.Modifications to manufacturers recommendation and proceduresmay alter performance of the test.Negative results do not preclude Influenza A,B or SARS- ZAJ5jqucunhisc and should not be used as the [...] out diseases caused by other bacterialor viral pathogens.48557-9BSYQ-ZvG-0 RNA Resp Ql ТАТЬЯНА+probeLNNOSNo O rganisms XbdnflzsU3061488993Of Organisms Detected Reviewed by Bandar Cleveland PA-C on ; All test results are final unless otherwise noted. Reported Physicians [facility] Ordered by Bandar Cleveland PA-C on 07/25/2020 Collected: 07/25/2020 Reported: 07/25/2020 18:47 Reported Physicians See Note None Note: Reported Physicians:Ordering: Janice Wilsonending: Kami Cleveland To: Health, Public Reviewed by Bandar Cleveland PA-C on 1; All test results are final unless otherwise noted. CBC W AUTO DIFF [facility] Ordered by Maya Barron MD [...] Auto See Note (0-2) N (Normal) Note: [id number] Ob observer gravity prospecting: IG% IG% 100.1375 (B) Hct VFr Bld [...] unless otherwise noted. Reported Physicians [facility] Ordered by Maya Barron MD on 07/22/2020 Collected: 07/22/2020 Reported: 07/22/2020 02:00 Reported Physicians See Note None Note: Reported Physicians:Ordering: Hong LandaverdeAttending: Alon Douglas To: Maya Barron Reviewed by Maya Barron MD on 07/24; All test results are final unless otherwise noted. Extended hours FLU/COV2 NAAT [facility] Ordered by Maya Barron MD on 07/22/2020 Collected: 07/22/2020 Reported: 07/22/2020 01:29 Extended hours FLU/COV2 NAAT See Note None Note: TNPNo Reportable ResultLTNPNo Repo rtable WmfmyeI9GDL Reviewed by Maya Barron MD on 07/24; All test results are final unless otherwise noted. Reported Physicians [facility] Ordered by Maya Barron MD on 07/22/2020 Collected: 07/22/2020 Reported: 07/22/2020 01:29 Reported Physicians See Note None Note: Reported Physicians:Ordering: Hong LandaverdeAttending: Alon Douglas To: Maya Barron Reviewed by Maya Barron MD on 07/24; All test results are final unless otherwise noted. Sweta Raquel SARS/FLU [facility] Ordered by Maya Barron MD on 07/22/2020 Collected: 07/22/2020 Reported: 07/22/2020 01:29 Sweta Raquel SARS/FLU See Note None Note: Sweta Raquel is a rapid, automated q ualitative anddifferentiation of Influenza type A,B and ONQU-HQE-6KKPA-RT-PCR testNORMAL VALUE IS "NOT DETECTED".Limitations of the sweta raquel Influenza A/B & HJCD-YWK-4jrgbw method.Modifications to manufacturers recommendation and proceduresmay alter performance of the test.Negative results do not preclude Influenza A,B or SARS- IQL0scqukzigcx and should not be used as the [...] out diseases caused by other bacterialor viral pathogens.07962-4NUOT-WlG-5 RNA Resp Ql ТАТЬЯНА+probeLNNOSNo O rganisms [id number] Organisms Detected Reviewed by Maya Barron MD on 07/24; All test results are final unless otherwise noted. Reported Physicians [facility] Ordered by Maya Barron MD on 07/22/2020 Collected: 07/22/2020 Reported: 07/22/2020 01:29 Reported Physicians See Note None Note: Reported Physicians:Ordering: Dominic Landavredeending: Alon Douglas To: Maya Barron Reviewed by Maya Barron MD on 07/24; All test results are final unless otherwise noted. UA W/ CULTURE IF ABNORMAL [facility] Ordered by Maya Barron MD on 07/22/2020 Collected: 07/22/2020 Reported: 07/22/2020 01:10 Urobilinogen Ur Ql See Note (0.2-1 EU/dl) None Note: 0.2 EU/dl0.2 EU/uqC01099351193.2 E U/dlResponsible Observer: UROBILINOGEN UROBILINOGEN 300.4500 (C) RBC # Ur Strip NEGATIVE (NEGATIVE) None Note: Responsible Observer: BLOOD BLOOD 300.4652 (C) Prot Ur Ql Strip See Note (NEGATIVE) None Note: [id number] EResponsible Observer: PROTEIN PROTEIN 300.3750 (C) Ketones Ur Ql Strip See Note (NEGATIVE) None Note: [id number] EResponsible Observer: KETONE KETONE 300.3900 (C) Bilirub Ur Ql Strip.auto See Note (NEGATIVE) None Note: [id number] EResponsible Observer: BILIRUBIN BILIRUBIN 300.4550 (C) Glucose Ur Strip.auto-mCnc NEGATIVE (NEGATIVE) None Note: Responsible Observer: GLUCOSE GLUC OSE 300.3850 (C) Appearance Ur See Note (CLEAR) None Note: CLEARCLEARLCLEARResponsible Observ er: APPEARANCE APPEARANCE 300.3400 (A) Color Ur See Note None Note: YELLOWYELLOWLYELLOWResponsible Obs erver: COLOR COLOR 300.3330 (A) Leukocyte esterase Ur Ql Strip See Note (NEGATIVE) None Note: [id number] EResponsible Observer: LEUKOCYTES LEUKOCYTES 300.3576 (C) Nitrite Ur Ql Strip See Note (NEGATIVE) None Note: [id number] EResponsible Observer: NITRITE NITRITE 300.3652 (B) pH [...] unless otherwise noted. Reported Physicians [facility] Ordered by Maya Barron MD on 07/22/2020 Collected: 07/22/2020 Reported: 07/22/2020 01:11 Reported Physicians See Note None Note: Reported Physicians:Ordering: Hong LandaverdeAttending: Alon Douglas To: Maya Barron Reviewed by Maya Barron MD on 07/24; All test results are final unless otherwise noted. Urine culture [facility] Ordered by Maya Barron MD on 07/19/2020 Collected: 07/19/2020 Reported: 07/21/2020 07:48 Bacteria Ur Cult See Note None Note: NGNo growth.L1NG Reviewed by Maya Barron MD on 07/21; All test results are final unless otherwise noted. Reported Physicians [facility] Ordered by Maya Barron MD on 07/19/2020 Collected: 07/19/2020 Reported: 07/21/2020 07:49 Reported Physicians See Note None Note: Reported Physicians:Ordering: Cara Alvarengaending: Maya Barron Reviewed by Maya Barron MD on 07/21; All test results are final unless otherwise noted. BHCG, QUANTITATIVE [facility] Ordered by Maya Barron MD [...] unless otherwise noted. Reported Physicians [facility] Ordered by Maya Barron MD on 07/17/2020 Collected: 07/17/2020 Reported: 07/17/2020 12:40 Reported Physicians See Note None Note: Reported Physicians:Ordering: Maya AlvarengaAttending: Maya Barron Reviewed by Maya Barron MD on 07/17; All test results are final unless otherwise noted. CUEVAS COVID-19 SCHOOL [facility] Ordered by Maya Barron MD [...] molecular test, if the virus mutates in [facility] region, Covid-19 may not be detected or may bedetected less predictably.ID NOW COVID-19 is intended for testing a swab directlywithout elution in viral transport media as dilution willresult in decreased detection of low positive samples thatare near the limit of detection of the test.SWAB SAMPLES ELUTED IN VTM ARE NOT APPROPRIATE FOR USE INTHIS TEST.NOSNo Organisms [id number] Organisms Detected Reviewed by Maya Barron MD on 05/31; All test results are final unless otherwise noted. Reported Physicians [facility] Ordered by Maya Barron MD on 05/31/2020 Collected: 05/31/2020 Reported: 05/31/2020 07:08 Reported Physicians See Note None Note: Reported Physicians:Ordering: Johnny Hernándezending: Johnny CazaresCopyifan To: Maya Barron Reviewed by Maya Barron MD on 05/31; All test results are final unless otherwise noted. BHCG, QUANTITATIVE [facility] Ordered by Maya Barron MD on 05/26/2020 Collected: 05/26/2020 Reported: 05/26/2020 14:49 B-HCG SerPl-aCn 00324 MilliInternationalUnitsPerMilliLiter_[Arbitrary_Con (0-10) H (High) Note: @Instrument will [...] unless otherwise noted. Reported Physicians [facility] Ordered by Maya Barron MD on 05/26/2020 Collected: 05/26/2020 Reported: 05/26/2020 14:50 Reported Physicians See Note None Note: Reported Physicians:Ordering: Maya AlvarengaAttending: Maya Barron Reviewed by Maya Barron MD on 05/26; All test results are final unless otherwise noted. URINALYSIS [facility] Ordered by Maya Barron MD on 05/23/2020 Collected: 05/23/2020 Reported: 05/23/2020 17:19 Urobilinogen Ur Ql See Note (0.2-1 EU/dl) None Note: 0.2 EU/dl0.2 EU/[id number] E U/dlResponsible Observer: UROBILINOGEN UROBILINOGEN 300.4500 (C) RBC # Ur Strip NEGATIVE (NEGATIVE) None Note: Responsible Observer: BLOOD BLOOD 300.4650 (C) Prot Ur Ql Strip See Note (NEGATIVE) None Note: [id number] EResponsible Observer: PROTEIN PROTEIN 300.3750 (C) Ketones Ur Ql Strip See Note (NEGATIVE) None Note: [id number] EResponsible Observer: KETONE KETONE 300.3900 (C) Bilirub Ur Ql Strip.auto See Note (NEGATIVE) None Note: [id number] EResponsible Observer: BILIRUBIN BILIRUBIN 300.4550 (C) Glucose Ur Strip.auto-mCnc NEGATIVE (NEGATIVE) None Note: Responsible Observer: GLUCOSE GLUC OSE 300.3850 (C) Appearance Ur See Note (CLEAR) None Note: CLEARCLEARLCLEARResponsible Observ er: APPEARANCE APPEARANCE 300.3400 (A) Color Ur See Note None Note: YELLOWYELLOWLYELLOWResponsible Obs erver: COLOR COLOR 300.3300 (A) Leukocyte esterase Ur Ql Strip See Note (NEGATIVE) None Note: [id number] EResponsible Observer: LEUKOCYTES LEUKOCYTES 300.3575 (C) Nitrite Ur Ql Strip See Note (NEGATIVE) None Note: [id number] EResponsible Observer: NITRITE NITRITE 300.3650 (B) pH [...] unless otherwise noted. Urine culture [facility] Ordered by Maya Barron MD on 05/23/2020 Collected: 05/23/2020 Reported: 05/24/2020 09:24 Bacteria Ur Cult See Note None Note: NGNo growth.L1NG Reviewed by Maya Barron MD on 05/29; All test results are final unless otherwise noted. MEDMATCH [facility] Ordered by Maya Barron MD on 05/23/2020 Collected: 05/23/2020 Reported: 05/26/2020 17:09 MEDMATCH 1.000 (> or = 1.003) None Note: Responsible Observer: MEDMATCH MED MATCH 910.98681 ([facility]) Reviewed by Maya Barron MD on 05/29; All test results are final unless otherwise noted. Reported Physicians [facility] Ordered by Maya Barron MD on 05/23/2020 Collected: 05/23/2020 Reported: 05/26/2020 17:09 Reported Physicians See Note None Note: Reported Physicians:Ordering: Maya AlvarengaAttending: Maya Barron Reviewed by Maya Barron MD on 05/29; All test results are final unless otherwise noted. Varicella-Zoster IgG Antibody [facility] Ordered by Maya Barron MD [...] Antibody Immunity Screen, ACIF.THIS TEST WAS PERFORMED AT:[facility] [id number] ME RATI,MDResponsible Observer: VARICELLA IGG Varicella-Zoster IgG Antibody [id number] 960.2011 ([facility] [employer]) NOTES See Note None Note: Patient Street Address: [facility] [address] [facility] [place]: [place] [facility] Zip Code: [address] Reviewed by Maya Barron MD on 05/26; All test results are final unless otherwise noted. Reported Physicians [facility] Ordered by Maya Barron MD on 05/23/2020 Collected: 05/23/2020 Reported: 05/25/2020 17:11 Reported Physicians See Note None Note: Reported Physicians:Ordering: Maya AlvarengaAttending: Maya Barron Reviewed by Maya Barron MD on 05/26; All test results are final unless otherwise noted. CBC [facility] Ordered by Maya Barron MD [...] Auto See Note (0-2) N (Normal) Note: 0.20.4X55591128033.2Responsible Ob observer gravity prospecting: IG% IG% 100.1375 (B) Hct VFr Bld [...] final unless otherwise noted. TSH [facility] Ordered by Maya Barron MD on 05/23/2020 Collected: 05/23/2020 Reported: 05/23/2020 18:38 TSH SerPl DL<=0.005 mIU/L-aCnc 1.87 MicroInternationalUnitsPerMilliLiter_[Arbitrary_Con (0.35-5. 50) N (Normal) Note: Responsible Observer: TSH TSH 600 .7055 (D) Reviewed by Maya Barron MD on 05/29; All test results are final unless otherwise noted. Lead (Venous) Wh.Bld [facility] Ordered by Maya Barron MD on 05/23/2020 Collected: 05/23/2020 Reported: 05/25/2020 17:11 Lead Bld-sCnc <1 (<5) None Note: See Note 1Note 1This test was faith granados and its analytical performancecharacteristics have been determined by [employer]. It has not been cleared or approved by theA. This assay has been validated pursuant to the CLIAregulations and is used for clinical purposes.THIS TEST WAS PERFORMED AT:[facility] [id number] MERATI,MDResponsible Observer: Lead, WB Lead, Whole Blood [id number] 911.2190 ([facility]) NOTES See Note None Note: Patient Street Address: [facility] [address] City: [place]: [facility] Zip Code: [address] Reviewed by Maya Barron MD on 05/29; All test results are final unless otherwise noted. ncPN REF [facility] Ordered by Maya Barron MD on 05/23/2020 Collected: 05/23/2020 Reported: 05/27/2020 20:54 T pallidum Ab Ser Ql Aggl See Note (Nonreactive) None Note: [id number] onreactiveResponsible Observer: TP-PA Treponema pallidum Ab (TP-PA) [id number] 908.0286 ([facility]) HIV1 RNA SerPl Ql ТАТЬЯНА+probe See Note None Note: TNPNo Reportable ResultLTNPNo Repo rtable ResultLLEP.LIVENTNPResponsible Observer: HIV 1 RNA, QL T HIV 1 RNA, QL TMA [id number] 908.0254 ([facility]) HBV surface Ag SerPl Ql IA See Note (NON-REACTIVE) None Note: [id number] 0NON-REACTIVEResponsible Observer: HBSAG Hepatitis B Surface Antigen 57235438 910.2004 ([facility]) RUBV IgG SerPl IA-aCnc 1.80 None Note: Index Interpretatio n ----- <0.90 Not consistent with Immunity 0.90-0.99 Equivocal > or = 1.00 Consistent with ImmunityThe presence of rubella IgG antibody suggestsimmunization or past or current infection withrubella virus.THIS TEST WAS PERFORMED AT:[facility] [address]JDQXXT MERATI,MDResponsible Observer: Rubella IgG Ab Rubella IgG Ab [id number] 911.2840 ([facility]) HIV1 Ab SerPlBld Ql IA.rapid See Note None Note: TNPNo Reportable ResultLTNPNo Repo rtable ResultLLEP.LIVENTNPResponsible Observer: HIV 1 AB HIV 1 AB [id number] 908.0250 ([facility]) HBsAg Confirmation See Note None Note: TNPNo Reportable ResultLTNPNo Repo rtable ResultLLEP.LIVENTNPResponsible Observer: HBsAg Confirm HBsAg Confirmation [id number] 910.2006 ([facility]) HIV (1&2) Screen, 4th Gen [...] for this purpose.For additional information please refer tohttp://education.[employer]/faq/ZXJ255(This link is being provided for informational/educational purposes only.)The performance of this assay has not been clinicallyvalidated in patients less than 2 years old.Responsible Observer: HIV ABS HIV (1&2) Screen, 4th Gen [id number] 908.0228 ([facility]) Reviewed by Maya Barron MD on 05/29; All test results are final unless otherwise noted. Reported Physicians [facility] Ordered by Maya Barron MD on 05/23/2020 Collected: 05/23/2020 Reported: 05/27/2020 20:54 Reported Physicians See Note None Note: Reported Physicians:Ordering: Maya AlvarengaAttending: Maya Barron Reviewed by Maya Barron MD on 05/29; All test results are final unless otherwise noted. HCV RFX ТАТЬЯНА [facility] Ordered by Maya Barron MD on 05/23/2020 Collected: 05/23/2020 Reported: 05/25/2020 17:11 HCV Ab Ser Ql See Note (NON-REACTIVE) None Note: [id number] 7NON-REACTIVEResponsible Observer: HEP C ANTIBODY Hepatitis C Antibody [id number] 914.8305 ([facility] [employer]) HCV RNA Qualitative (ТАТЬЯНА) 0.59 (<1.00) None Note: HCV antibody was non-reactive. The re is no laboratoryevidence of HCV infection.In most cases, no further action is required. However,if recent HCV exposure is suspected, a test for HCV RNA(test code 50471) is suggested.For additional information please refer tohttp://education.[employer]/faq/QKO37t9(This link is being provided for informational/educational purposes only.)THIS TEST WAS PERFORMED AT:[facility] [phone]CLAUDY ONEILLesponsible Observer: SIG TO C/O SIGNAL TO CUTOFF [id number] 914.8332 ([facility] [employer]) NOTES See Note None Note: Patient Street Address: [facility] City: [place]: [place] Zip Code: [address] Reviewed by Maya Barron MD on 05/26; All test results are final unless otherwise noted. Reported Physicians [facility] Ordered by Maya Barron MD on 05/23/2020 Collected: 05/23/2020 Reported: 05/25/2020 17:11 Reported Physicians See Note None Note: Reported Physicians:Ordering: Maya AlvarengaAttending: Maya Barron Reviewed by Maya Barron MD on 05/26; All test results are final unless otherwise noted. Type and Screen [facility] Ordered by Maya Barron MD [...] unless otherwise noted. Reported Physicians [facility] Ordered by Maya Barron MD on 05/23/2020 Collected: 05/23/2020 Reported: 05/23/2020 19:32 Reported Physicians See Note None Note: Reported Physicians:Ordering: Maya AlvarengaAttending: Maya Barron Reviewed by Maya Barron MD on 05/24; All test results are final unless otherwise noted. PROGESTERONE [facility] Ordered by Maya Barron MD [...] unless otherwise noted. Reported Physicians [facility] Ordered by Maya Barron MD on 04/27/2020 Collected: 04/27/2020 Reported: 04/27/2020 15:58 Reported Physicians See Note None Note: Reported Physicians:Ordering: Johnny HernándezAttending: Jos Castellanos To: Rubén Barron To: Cristino Castellanos Reviewed by Maya Barron MD on 04/30; All test results are final unless otherwise noted. BHCG, QUANTITATIVE [facility] Ordered by Maya Barron MD [...] unless otherwise noted. Reported Physicians [facility] Ordered by Maya Barron MD on 04/27/2020 Collected: 04/27/2020 Reported: 04/27/2020 14:40 Reported Physicians See Note None Note: Reported Physicians:Ordering: Cristino SnowAttending: Jos Castellanos To: Suzanne Cazares To: Maya Barron Reviewed by Maya Barron MD on 04/30; All test results are final unless otherwise noted. CBC W AUTO DIFF [facility] Ordered by aMya Barron MD on 04/25/2020 Collected: 04/25/2020 Reported: [...] Auto See Note (0-2) N (Normal) Note: [id number] Ob observer gravity prospecting: IG% IG% 100.1375 (B) Hct VFr Bld [...] test results are final unless otherwise noted. [facility] Ordered by [...] unless otherwise noted. Reported Physicians [facility] Ordered by Maya Barron MD on 04/25/2020 Collected: 04/25/2020 Reported: 04/25/2020 22:11 Reported Physicians See Note None Note: Reported Physicians:Ordering: Aj Ferreiraending: Jos Rivas To: Maya Barron Reviewed by Maya Barron MD on 04/26; All test results are final unless otherwise noted. BHCG, QUANTITATIVE [facility] Ordered by Maya Barron MD [...] unless otherwise noted. Reported Physicians [facility] Ordered by Maya Barron MD on 04/25/2020 Collected: 04/25/2020 Reported: 04/25/2020 22:11 Reported Physicians See Note None Note: Reported Physicians:Ordering: Aj Ferreiraending: Jos Rivas To: Maya Barron Reviewed by Maya Barron MD on 04/26; All test results are final unless otherwise noted. Urine culture [facility] Ordered by Maya Barron MD on 04/25/2020 Collected: 04/25/2020 Reported: 04/27/2020 04:50 Bacteria Ur Cult See Note None Note: NGNo growth.L1NG NOTES See Note None Note: @ NICOLE DATE was changed from 04/26 to 04/25/20@ by POMCY. Reviewed by Maya Barron MD on 04/30; All test results are final unless otherwise noted. Reported Physicians [facility] Ordered by Maya Barron MD on 04/25/2020 Collected: 04/25/2020 Reported: 04/27/2020 04:51 Reported Physicians See Note None Note: Reported Physicians:Ordering: Aj Ferreiraending: Jos Rivas To: Maya Barron Reviewed by Maya Barron MD on 04/30; All test results are final unless otherwise noted. ADD ON MICROSCOPIC [facility] Ordered by Maya Barron MD on 04/25/2020 Collected: 04/25/2020 Reported: 04/25/2020 21:54 ADD ON MICROSCOPIC See Note (0-5) None Note: NOTES OTHER/NOT INTERPRETED Bacteria UrnS Ql Micro SMALL AMOUNT Bacteria UrnS Ql Micro SMALL AMOUNT Bacteria UrnS Ql Micro L Bacteria UrnS Ql Micro Bacteria UrnS Ql Micro Bacteria UrnS Ql Micro Bacteria UrnS Ql Micro [id number] Bacteria UrnS Ql Micro Bacteria UrnS Ql [...] unless otherwise noted. Reported Physicians [facility] Ordered by Maya Barron MD on 04/25/2020 Collected: 04/25/2020 Reported: 04/25/2020 21:54 Reported Physicians See Note None Note: Reported Physicians:Ordering: Aj Ferreiraending: Jos Rivas To: Maya Barron Reviewed by Maya Barron MD on 04/26; All test results are final unless otherwise noted. URINALYSIS [facility] Ordered by Maya Barron MD on 04/25/2020 Collected: 04/25/2020 Reported: 04/25/2020 21:54 Urobilinogen Ur Ql See Note (0.2-1 EU/dl) None Note: 0.2 EU/dl0.2 EU/[id number] E U/dlResponsible Observer: UROBILINOGEN UROBILINOGEN 300.4500 (C) RBC # Ur Strip NEGATIVE (NEGATIVE) None Note: Responsible Observer: BLOOD BLOOD 300.4650 (C) Prot Ur Ql Strip See Note (NEGATIVE) None Note: [id number] EResponsible Observer: PROTEIN PROTEIN 300.3750 (C) Ketones Ur Ql Strip See Note (NEGATIVE) None Note: [id number] EResponsible Observer: KETONE KETONE 300.3900 (C) Bilirub Ur Ql Strip.auto See Note (NEGATIVE) None Note: [id number] EResponsible Observer: BILIRUBIN BILIRUBIN 300.4550 (C) Glucose Ur Strip.auto-mCnc NEGATIVE (NEGATIVE) None Note: Responsible Observer: GLUCOSE GLUC OSE 300.3850 (C) Appearance Ur See Note (CLEAR) None Note: CLEARCLEARLCLEARResponsible Observ er: APPEARANCE APPEARANCE 300.3400 (A) Color Ur See Note None Note: YELLOWYELLOWLYELLOWResponsible Obs erver: COLOR COLOR 300.3300 (A) Leukocyte esterase Ur Ql Strip See Note (NEGATIVE) None Note: [id number]@DO MICR O!!!!Responsible Observer: LEUKOCYTES LEUKOCYTES 300.3575 (C) Nitrite Ur Ql Strip See Note (NEGATIVE) None Note: [id number] EResponsible Observer: NITRITE NITRITE 300.3650 (B) pH [...] unless otherwise noted. Reported Physicians [facility] Ordered by Maya Barron MD on 04/25/2020 Collected: 04/25/2020 Reported: 04/25/2020 21:54 Reported Physicians See Note None Note: Reported Physicians:Ordering: Cristino FerreiraAttending: Jos Rivas To: Maya Barron Reviewed by Maya Barron MD on 04/26; All test results are final unless otherwise noted. BHCG, QUANTITATIVE [facility] Ordered by Maya Barron MD [...] unless otherwise noted. Reported Physicians [facility] Ordered by Maya Barron MD on 04/18/2020 Collected: 04/18/2020 Reported: 04/18/2020 15:11 Reported Physicians See Note None Note: Reported Physicians:Ordering: Cara Alvarengaending: Maya Barron Reviewed by Maya Barron MD on 04/19; All test results are final unless otherwise noted. ADD ON MICROSCOPIC [facility] Ordered by Maya Barron MD on 04/16/2020 Collected: 04/16/2020 Reported: 04/16/2020 23:51 ADD ON MICROSCOPIC See Note (0-5) None Note: NOTES OTHER/NOT INTERPRETED Bacteria UrnS Ql Micro SMALL AMOUNT Bacteria UrnS Ql Micro SMALL AMOUNT Bacteria UrnS Ql Micro L Bacteria UrnS Ql Micro Bacteria UrnS Ql Micro Bacteria UrnS Ql Micro Bacteria UrnS Ql Micro [id number] Bacteria UrnS Ql Micro Bacteria UrnS Ql [...] unless otherwise noted. Reported Physicians [facility] Ordered by Maya Barron MD on 04/16/2020 Collected: 04/16/2020 Reported: 04/16/2020 23:52 Reported Physicians See Note None Note: Reported Physicians:Ordering: Jose E JoseodAcoleenending: Jose E JoseodCopy To: Maya Barron Reviewed by Maya Barron MD on 04/17; All test results are final unless otherwise noted. UA W/ CULTURE IF ABNORMAL [facility] Ordered by Maya Barron MD on 04/16/2020 Collected: 04/16/2020 Reported: 04/16/2020 23:51 Urobilinogen Ur Ql See Note (0.2-1 EU/dl) None Note: 0.2 EU/dl0.2 EU/[id number] E U/dlResponsible Observer: UROBILINOGEN UROBILINOGEN 300.4500 (C) RBC # Ur Strip NEGATIVE (NEGATIVE) None Note: Responsible Observer: BLOOD BLOOD 300.4652 (C) Prot Ur Ql Strip See Note (NEGATIVE) None Note: [id number] EResponsible Observer: PROTEIN PROTEIN 300.3750 (C) Ketones Ur Ql Strip See Note (NEGATIVE) None Note: [id number] ble Observer: KETONE KETONE 300.3900 (C) Bilirub Ur Ql Strip.auto See Note (NEGATIVE) None Note: [id number] EResponsible Observer: BILIRUBIN BILIRUBIN 300.4550 (C) Glucose Ur Strip.auto-mCnc NEGATIVE (NEGATIVE) None Note: Responsible Observer: GLUCOSE GLUC OSE 300.3850 (C) Appearance Ur See Note (CLEAR) None Note: CLEARCLEARLCLEARResponsible Observ er: APPEARANCE APPEARANCE 300.3400 (A) Color Ur See Note None Note: YELLOWYELLOWLYELLOWResponsible Obs erver: COLOR COLOR 300.3330 (A) Leukocyte esterase Ur Ql Strip See Note (NEGATIVE) None Note: [id number] E@DO MICRO!!!!A Culture has been added to this specimen per established criteriaResponsible Observer: LEUKOCYTES LEUKOCYTES 300.3576 (C) Nitrite Ur Ql Strip See Note (NEGATIVE) None Note: [id number] EResponsible Observer: NITRITE NITRITE 300.3652 (B) pH [...] unless otherwise noted. Urine culture [facility] Ordered by Maya Barron MD [...] unless otherwise noted. Reported Physicians [facility] Ordered by Maya Barron MD on 04/16/2020 Collected: 04/16/2020 Reported: 04/18/2020 06:47 Reported Physicians See Note None Note: Reported Physicians:Ordering: Damon , VinodAttending: Damon, VinodCopy To: Maya Barron Reviewed by Maya Barron MD on 04/18; All test results are final unless otherwise noted. CBC W AUTO DIFF [facility] Ordered by Maya Barron MD [...] Auto See Note (0-2) N (Normal) Note: 0.20.2K26763078695.2Responsible Ob observer gravity prospecting: IG% IG% 100.1375 (B) Hct VFr Bld [...] test results are final unless otherwise noted. [facility] [place] Ordered by Maya Barron MD [...] unless otherwise noted. Reported Physicians [facility] Ordered by Maya Barron MD on 04/16/2020 Collected: 04/16/2020 Reported: 04/16/2020 22:47 Reported Physicians See Note None Note: Reported Physicians:Ordering: Romel Josettending: Alix Jose To: Maya Barron Reviewed by Maya Barron MD on 04/17; All test results are final unless otherwise noted. CMP [facility] Ordered by Maya Barron MD [...] unless otherwise noted. Reported Physicians [facility] Ordered by Maya Barron MD on 04/16/2020 Collected: 04/16/2020 Reported: 04/16/2020 22:44 Reported Physicians See Note None Note: Reported Physicians:Ordering: Romel Josettending: Mat JoseCopyifan To: Maya Barron Reviewed by Maya Barron MD on 04/17; All test results are final unless otherwise noted. LIPASE [facility] Ordered by Maya Barron MD on 04/16/2020 Collected: 04/16/2020 Reported: 04/16/2020 22:44 Lipase SerPl-cCnc 107 enzyme_unit_per_liter (73-393) N (Normal) Note: Responsible Observer: Lipase Lipas e 400.2310 (G) Reviewed by Maya Barron MD on 04/17; All test results are final unless otherwise noted. Reported Physicians [facility] Ordered by Maya Barron MD on 04/16/2020 Collected: 04/16/2020 Reported: 04/16/2020 22:44 Reported Physicians See Note None Note: Reported Physicians:Ordering: Romel Josettending: Jose E JoseodCopyifan To: Maya Barron Reviewed by Maya Barron MD on 04/17; All test results are final unless otherwise noted. Type and Screen [facility] Ordered by Maya Barron MD [...] unless otherwise noted. Reported Physicians [facility] Ordered by Maya Barron MD on 04/16/2020 Collected: 04/16/2020 Reported: 04/16/2020 23:09 Reported Physicians See Note None Note: Reported Physicians:Ordering: Jose E JoseodAttending: Damon VinodCopy To: Maya Barron Reviewed by Maya Barron MD on 04/17; All test results are final unless otherwise noted. [facility] Ordered by Maya Barron MD on 04/10/2020 [address] [place], [address] Collected: 04/10/2020 Reported: 04/11/2020 11:35 tel : [...] test results are final unless otherwise noted. [facility] Ordered by Maya Barron MD on 04/10/[address] [place] [address], [address] Collected: 04/10/2020 Reported: 04/11/2020 11:35 tel : [...] Ordered by Maya Barron MD on 04/10/[address] [place] [address], [address] Collected: 04/10/2020 Reported: 04/11/2020 11:35 tel :[phone]. [phone] TSH 1.336 uIu/mL (0.5-5.8) None Note: Responsible Observer: AW Reviewed by Maya Barron MD on 04/12; All test results are final unless otherwise noted. -MERGED WITH [facility] Ordered by Maya Barron MD on 02/25/2020 Collected: 02/25/2020 Reported: 02/28/2020 15:53 C trach rRNA XXX Ql ТАТЬЯНА+probe See Note (NOT DETECTED) None Note: NOT DETECTEDNOT DETECTEDLNOT DETEC TEDNOT [id number] DETECTEDResponsible Observer: C.Trach RNA Chlamydia trachomatis DNA-ТАТЬЯНА [id number] 913.9900 ([facility] [employer]) N gonorrhoea rRNA XXX Ql ТАТЬЯНА+probe See Note (NOT DETECTED) None Note: NOT DETECTEDNOT DETECTEDLNOT DETEC TEDNOT [id number] DETECTEDResponsible Observer: GC RNA Neisseria gonorrhoeae DNA -ТАТЬЯНА [id number] 913.9905 (QUEST) Chlamydia/GC DNA Note SEE NOTE None Note: The analytical performance charact eristics of thisassay, when used to test SurePath(TM) specimens have beendetermined by [employer]. The modifications havenot been cleared or approved by the FDA. This assay hasbeen validated pursuant to the CLIA regulations and isused for clinical purposes.For additional information, please refer tohttps://education.[employer]/faq/JYD984(This link is being provided for information/educational purposes only.)THIS TEST WAS PERFORMED AT:[facility] [id number] MEANS,MDResponsible Observer: GC/Chlam Note Chlamydia/GC DNA Note [id number] 913.9907 (A) NOTES See Note None Note: Source Of Specimen: URINE Reviewed by Maya Barron MD on 02/28; All test results are final unless otherwise noted. Reported Physicians [facility] Ordered by Maya Barron MD on 02/25/2020 Collected: 02/25/2020 Reported: 02/28/2020 15:54 Reported Physicians See Note None Note: Reported Physicians:Ordering: Bia Alvarenga: Maya Barron Reviewed by Maya Barron MD on 02/28; All test results are final unless otherwise noted. Urine culture-[facility]GED WITH [facility] Ordered by Maay Barron MD on 02/25/2020 Collected: 02/25/2020 Reported: 02/26/2020 13:38 Urine culture result No growth None Reviewed by Maya Barron MD on 02/27; All test results are final unless otherwise noted. Reported Physicians [facility] Ordered by Maya Barron MD on 02/25/2020 Collected: 02/25/2020 Reported: 02/26/2020 13:39 Reported Physicians See Note None Note: Reported Physicians:Ordering: Bia Alvarenga: Maya Barron Reviewed by Maya Barron MD on 02/27; All test results are final unless otherwise noted. Test Office Lab Ordered by Maya Barron MD on 02/25/2020 [address] [place], [address] Specimen Source: Urine Collected: 02/25/2020 Reporte d: 02/25/2020 11:15 tel:[phone] Urine HCG neg (negative) N (Normal) Reviewed by Maya Barron MD on 02/24; All test results are final unless otherwise noted. Urinalysis w/out microscopy Office Lab Ordered by Maya Barron MD on 02/25/2020 [address] [place], [address] Specimen Source: Urine Collected: 02/25/2020 Reporte d: 02/25/2020 11:02 tel:[phone] bilirubin neg (neg) N (Normal) blood neg [...] UA W/ CULTURE IF ABNORMAL [facility] Ordered by Maya Barron MD on 01/29/2020 Collected: 01/29/2020 Reported: 01/29/2020 00:22 Urobilinogen Ur Ql See Note (0.2-1 EU/dl) None Note: 1 EU/dl1 EU/dlL1 EU/dl1 EU/ixN3180 [id number] EU/dlResponsible Observer: UROBILINOGEN UROBILINOGEN 300.4500 (C) RBC # Ur Strip NEGATIVE (NEGATIVE) None Note: Responsible Observer: BLOOD BLOOD 300.4652 (C) Prot Ur Ql Strip See Note (NEGATIVE) None Note: NEGATIVENEGATIVELNEGATIVENEGATIVEL [id number] Observer: PROTEIN PROTEIN 300.3750 (C) Ketones Ur Ql Strip See Note (NEGATIVE) None Note: 15 mg/dL15 mg/dLL15 mg/dL15 mg/dLL 034980660711 mg/dLResponsible Observer: KETONE KETONE 300.3900 (C) Bilirub Ur Ql Strip.auto See Note (NEGATIVE) None Note: NEGATIVENEGATIVELNEGATIVENEGATIVEL [id number] Observer: BILIRUBIN BILIRUBIN 300.4550 (C) Glucose Ur Strip.auto-mCnc NEGATIVE (NEGATIVE) None Note: Responsible Observer: GLUCOSE GLUC OSE 300.3850 (C) Appearance Ur See Note (CLEAR) None Note: CLEARCLEARLCLEARCLEARLCLEARRespons ible Observer: APPEARANCE APPEARANCE 300.3400 (A) Color Ur See Note None Note: YELLOWYELLOWLYELLOWYELLOWLYELLOWRe sponsible Observer: COLOR COLOR 300.3330 (A) Leukocyte esterase Ur Ql Strip See Note (NEGATIVE) None Note: NEGATIVENEGATIVELNEGATIVENEGATIVEL [id number] Observer: LEUKOCYTES LEUKOCYTES 300.3576 (C) Nitrite Ur Ql Strip See Note (NEGATIVE) None Note: NEGATIVENEGATIVELNEGATIVENEGATIVEL [id number] Observer: NITRITE NITRITE 300.3652 (B) pH Ur [...] unless otherwise noted. Reported Physicians [facility] Ordered by Maya Barron MD on 01/29/2020 Collected: 01/29/2020 Reported: 01/29/2020 00:22 Reported Physicians See Note None Note: Reported Physicians:Ordering: Yoli NapolesAttending: Charles Silva To: Maya Barron Reviewed by Maya Barron MD on 01/30; All test results are final unless otherwise noted. BHCG,SERUM QUALITATIVE [facility] Ordered by Maya Barron MD [...] unless otherwise noted. Reported Physicians [facility] Ordered by Maya Barron MD on 01/28/2020 Collected: 01/28/2020 Reported: 01/28/2020 22:58 Reported Physicians See Note None Note: Reported Physicians:Ordering: Brook yeung, YoliAttending: Yoli SilvaCopyifan To: Maya Barron Reviewed by Maya Barron MD on 01/30; All test results are final unless otherwise noted. CBC W AUTO DIFF [facility] Ordered by Maya Barron MD [...] Auto See Note (0-2) N (Normal) Note: [id number] ible Observer: IG% IG% 100.1375 (B) Hct [...] test results are final unless otherwise noted. [facility] Ordered by [...] unless otherwise noted. Reported Physicians [facility] Ordered by Maya Barron MD on 01/28/2020 Collected: 01/28/2020 Reported: 01/28/2020 23:00 Reported Physicians See Note None Note: Reported Physicians:Ordering: Cliff Napolesending: Charles Silva To: Maya Braron Reviewed by Maya Barron MD on 01/30; All test results are final unless otherwise noted. UA W/ CULTURE IF ABNORMAL [facility] Ordered by Maya Barron MD on 12/12/2019 Collected: 12/12/2019 Reported: 12/12/2019 11:22 Urobilinogen Ur Ql See Note (0.2-1 EU/dl) None Note: 1 EU/dl1 EU/dlL1 EU/dl1 EU/hfO9478 [id number] EU/dlResponsible Observer: UROBILINOGEN UROBILINOGEN 300.4500 (C) RBC # Ur Strip NEGATIVE (NEGATIVE) None Note: Responsible Observer: BLOOD BLOOD 300.4652 (C) Prot Ur Ql Strip See Note (NEGATIVE) None Note: NEGATIVENEGATIVELNEGATIVENEGATIVEL [id number] Observer: PROTEIN PROTEIN 300.3750 (C) Ketones Ur Ql Strip See Note (NEGATIVE) None Note: 15 mg/dL15 mg/dLL15 mg/dL15 mg/dLL 279265187414 mg/dLResponsible Observer: KETONE KETONE 300.3900 (C) Bilirub Ur Ql Strip.auto See Note (NEGATIVE) None Note: NEGATIVENEGATIVELNEGATIVENEGATIVEL [id number] Observer: BILIRUBIN BILIRUBIN 300.4550 (C) Glucose Ur Strip.auto-mCnc NEGATIVE (NEGATIVE) None Note: Responsible Observer: GLUCOSE GLUC OSE 300.3850 (C) Appearance Ur See Note (CLEAR) A (Abnormal) Note: CLOUDYCLOUDYLCLOUDYCLOUDYLCLOUDYRe sponsible Observer: APPEARANCE APPEARANCE 300.3400 (A) Color Ur See Note None Note: YELLOWYELLOWLYELLOWYELLOWLYELLOWRe sponsible Observer: COLOR COLOR 300.3330 (A) Leukocyte esterase Ur Ql Strip See Note (NEGATIVE) None Note: NEGATIVENEGATIVELNEGATIVENEGATIVEL [id number] Observer: LEUKOCYTES LEUKOCYTES 300.3576 (C) Nitrite Ur Ql Strip See Note (NEGATIVE) None Note: NEGATIVENEGATIVELNEGATIVENEGATIVEL [id number] Observer: NITRITE NITRITE 300.3652 (B) pH Ur [...] unless otherwise noted. Reported Physicians [facility] Ordered by Maya Barron MD on 12/12/2019 Collected: 12/12/2019 Reported: 12/12/2019 11:23 Reported Physicians See Note None Note: Reported Physicians:Ordering: Maya AlvarengaAttending: Maya Barron Reviewed by Maya Barron MD on 12/12; All test results are final unless otherwise noted. CBC W AUTO DIFF [facility] Ordered by Maya Barron MD [...] Auto See Note (0-2) N (Normal) Note: [id number] ible Observer: IG% IG% 100.1375 (B) Hct [...] test results are final unless otherwise noted. [facility] Ordered by [...] unless otherwise noted. Reported Physicians [facility] Ordered by Maya Barron MD on 12/12/2019 Collected: 12/12/2019 Reported: 12/12/2019 11:58 Reported Physicians See Note None Note: Reported Physicians:Ordering: Maya AlvarengaAttending: Maya Barron Reviewed by Maya Barron MD on 12/12; All test results are final unless otherwise noted. Gastrointestinal Panel PCR [facility] Ordered by Maya Barron MD [...] OTHER EXPERTS. (E.G. GUIDELINES/POLICYSTATEMENTS PUBLISHED BY THE [place] [employer]OR THE SOCIETY FOR HEALTHCARE EPIDEMIOLOGY OF [place] ANDTHE INFECTIOUS DISEASE SOCIETY OF [place]).CLOC. difficile toxin [id number]. difficile toxin detected Reviewed by Maya Barron MD on 12/12; All test results are final unless otherwise noted. Reported Physicians [facility] Ordered by Maya Barron MD on 12/12/2019 Collected: 12/12/2019 Reported: 12/12/2019 14:17 Reported Physicians See Note None Note: Reported Physicians:Ordering: Maya AlvarengaAttending: Maya Barron Reviewed by Maya Barron MD on 12/12; All test results are final unless otherwise noted. CBC W AUTO DIFF [facility] Ordered by Maya Barron MD [...] Auto See Note (0-2) N (Normal) Note: [id number] ible Observer: IG% IG% 100.1375 (B) Hct [...] test results are final unless otherwise noted. [facility] Ordered by [...] noted. Prothrombin Time & INR [facility] Ordered by Maya Barron MD [...] unless otherwise noted. Reported Physicians [facility] Ordered by Maya Barron MD on 12/07/2019 Collected: 12/07/2019 Reported: 12/07/2019 17:21 Reported Physicians See Note None Note: Reported Physicians:Ordering: Aj Snowending: Jos Castellanos To: Maya Barron Reviewed by Maya Barron MD on 12/09; All test results are final unless otherwise noted. Urinalysis w/out microscopy Office Lab Ordered by Maya Barron MD on 11/22/[address] [place] [address], [phone] Specimen Source: Urine Collected: 11/22/2019 Reporte d: [...] final unless otherwise noted. TROPONIN [facility] Ordered by Maya Barron MD on 11/19/2019 Collected: 11/19/2019 Reported: 11/19/2019 10:30 Troponin I SerPl-mCnc Less Than 0.015 (0.00-0.09) N (Normal) Note: Less than 0.09 NG/ML Negative 0.10 - 0.77 NG/ML High Risk0.78 NG/ML or Greater PositiveThe WHO defined the cutoff (definition for diagnosis of RI)for this method as 0.78 ng/ml.Responsible Observer: Troponin I Troponin I 600.1101 (G) Reviewed by Maya Barron MD on 11/18; All test results are final unless otherwise noted. Reported Physicians [facility] Ordered by Maya Barron MD on 11/19/2019 Collected: 11/19/2019 Reported: 11/19/2019 10:30 Reported Physicians See Note None Note: Reported Physicians:Ordering: Oscar Del Cidending: Vandana Burrows To: Maya Barron Reviewed by Maya Barron MD on 11/18; All test results are final unless otherwise noted. CBC W AUTO DIFF [facility] Ordered by Maya Barron MD [...] Auto See Note (0-2) N (Normal) Note: [id number] ible Observer: IG% IG% 100.1375 (B) Hct [...] unless otherwise noted. BHCG,SERUM QUALITATIVE [facility] Ordered by Maya Barron MD [...] final unless otherwise noted. CMP [facility] Ordered by Maya Barron MD [...] unless otherwise noted. Reported Physicians [facility] Ordered by Maya Barron MD on 11/19/2019 Collected: 11/19/2019 Reported: 11/19/2019 10:08 Reported Physicians See Note None Note: Reported Physicians:Ordering: Oscar Del Cidending: Vandana Burrows To: Maya Barron Reviewed by Maya Barron MD on 11/18; All test results are final unless otherwise noted. [facility] Ordered by Maya Barron MD on 11/15/[address] [place] [address], [id number] Collected: 11/15/2019 Reported: 11/16/2019 13:40 tel : [...] test results are final unless otherwise noted. [facility] Ordered by Maya Barron MD on 11/15/[address] [place] [address], [facility] Collected: 11/15/2019 Reported: 11/16/2019 13:40 tel : [...] Ordered by Maya Barron MD on 11/15/[address] [place] [address], [facility] Collected: 11/15/2019 Reported: 11/16/2019 13:40 tel : ext. [phone] TSH 2.257 uIu/mL (0.5-5.8) None Note: Responsible Observer: AW Reviewed by Maya Barron MD on 11/15; All test results are final unless otherwise noted. BHCG, QUANTITATIVE [facility] Ordered by Maya Barron MD [...] Lab Ordered by Maya Barron MD on [address] [place] [address], [phone] Specimen Source: Urine Collected: Reported: 2020 11:41 tel:[phone] bilirubin NEGATIVE (neg) N (Normal) blood NEGATIVE [...] Ordered by Maya Barron MD on 12/27/[address] [place] [address], [phone] Specimen Source: Urine Collected: Reported: 2019 13:46 tel:[phone] Urine HCG negative (negative) N (Normal) Reviewed [...] Procedures and Surgical History Includes: Procedures from 11/15/2019 through 11/14/2020 Procedures Code Diagnosis Performing Provider Service Location Service Date REVISIT- office visit KAYLEIGH 18 weeks gestatio n of Maya Barron MD [facility], [facility] 10/31/2020 REVISIT- office visit KAYLEIGH 17 weeks gestatio n of Maya Barron MD [facility], [facility] 10/24/2020 REVISIT- office visit KAYLEIGH 16 weeks gestatio n of Maya Barron MD [facility], [facility] 10/17/2020 Holter Monitor, Physician review & interpretation only 56959 Palpitations Michel Villalba MD [facility] Outpt 10/11/2020 REVISIT- office visit KAYLEIGH 15 weeks gestatio n of Maya Barron MD [facility], [facility] 10/11/2020 REVISIT- office visit KAYLEIGH 13 weeks gestatio n of Maya Barron MD [facility], [facility] 09/27/2020 REVISIT- office visit KAYLEIGH 12 weeks gestatio n of Maya Barron MD [facility], [facility] 09/19/2020 EKG- Electrocardiogram/12 lead 49052 Chest pain, unspe cified Cat Gutierrez [facility], [facility] 09/11/2020 REVISIT- office visit KAYLEIGH 10 weeks gestatio n of Cat Gutierrez [facility], [facility] 09/05/2020 REVISIT- office visit KAYLEIGH 8 weeks gestation of Maya Barron MD [facility], [facility] 08/22/2020 Urinalysis w/o Microscopy (Distinct Seperate service-same da y) 24047 Frequency of micturition- Urinary Frequency Maya Barron MD [facility], [facility] 08/15/2020 RAPID STREP 89880 Acute pharyngitis, unspecified Maya Barron MD [facility], [facility] 08/15/2020 Initial Obstetrical Care Office Visit OB Le ss than 8 weeks gestation of Cat Gutierrez [facility], [facility] 021 Urinalysis w/o Microscopy 88769 Frequency of micturiti on- Urinary Frequency Maya Barron MD [facility], [facility] 07/19/2020 REVISIT- office visit KAYLEIGH Threatened Alicja Barron MD [facility], [facility] 05/26/2020 NO CHARGE- Nurse visit- OB establish [employer] Thr eatened , state, incidental Maya Barrno MD [facility], [facility] 020 Brief Emotional Behavior Assessment ( add -59 mod) 08226 Screening for Mental Health/Behavioral Disorder, Unspecified Maya Barron MD [facility], [facility] 04/10/2020 Venipuncture (routine) 98027 Dysmenorrhea, unspecified Mariela Barron MD [facility], [facility] 04/10/2020 General Health Panel( CMP, CBC, TSH) 38938 Dysmenorrhe a, unspecified Maya Barron MD [facility], [facility] 04/10/2020 Urine Test 62420 Pelvic and perineal pain, Frequency of micturition- Urinary Frequency Maya Barron MD [facility], [facility] 02/25/2020 Urinalysis w/o Microscopy 14542 Frequency of micturiti on- Urinary Frequency Maya Barron MD [facility], [facility] 02/25/2020 Urine Test 32861 Amenorrhea, unspecified Maya Barron MD [facility], [facility] 12/27/2019 Urinalysis w/o Microscopy 87416 Right upper quadrant pain Trinity Barron MD [facility], [facility] 11/22/2019 General Health Panel( CMP, CBC, TSH) 74129 Other fatigue Alicja Braron MD [facility], [facility] 11/15/2019 Venipuncture (routine) 35180 Other fatigue Maya Barron MD [facility], [facility] 11/15/2019 Surgical History Last Updated No surgical [...] 12:00AM Act laya Encounters Includes: Encounters from 11/15/2019 through 11/14/2020 Encounter Provider Location Date Check-In Time Check-Out Time D iagnosis REVISIT- Routine (OB) Visit Maya Barron MD [facility], [facility] 11/14/2020 9:55AM 11/07/2020 11:59PM REVISIT- Routine (OB) Visit Maya Barron MD [facility], [facility] 11/07/2020 11:42AM 12:02PM OB- ILL VISIT Maya Barron MD [facility], [facility] 11/03/2020 3:45PM 4:29PM , Generalized Anxie ty Disorder, Panic Disorder, Chest Pain Chronic Care Mgt - Office Visit Maya Barron MD [facility], [facility] 11/03/2020 2:37PM 3:38PM Chronic Care Mgt - Office Visit Maya Barron MD [facility], [facility] 10/31/2020 3:23PM 3:24PM Fracture of Fift h Cervical Vertebral Body, History of Psychiatric Disorders, Reactive Airway Disease REVISIT- Routine (OB) Visit Maya Barron MD [facility], [facility] 10/31/2020 9:54AM 10:24AM Chronic Care Mgt - Office Visit Maya Barron MD [facility], [facility] 10/24/2020 2:16PM 11:59PM REVISIT- Routine (OB) Visit Maya Barron MD [facility], [facility] 10/24/2020 10:00AM 10:47AM REVISIT- Routine (OB) Visit Maya Barron MD [facility], [facility] 10/17/2020 11:24AM 12:12PM Chronic Care Mgt - Office Visit Maya Barron MD [facility], [facility] 10/17/2020 11:25AM 12:11PM Fracture of Fift h Cervical Vertebral Body, History of Psychiatric Disorders, Reactive Airway Disease REVISIT- Routine (OB) Visit Maya Barron MD [facility], [facility] 10/11/2020 9:44AM 10:15AM OB- ILL VISIT Maya Barron MD [facility], [facility] 10/04/2020 2:12PM 2:31PM Presyncope Syndrome, Tachyca rdia, Palpitations, Difficulty Breathing (Dyspnea), Weeks of Gestation - 14 REVISIT- Routine (OB) Visit Maya Barron MD [facility], [facility] 09/27/2020 1:36PM 1:59PM telephone conversation Michel Villalba MD 09/19/2020 9:43PM 09/19/2020 11:59PM Atypical Chest Pain REVISIT- Routine (OB) Visit Maya Barron MD [facility], [facility] 09/19/2020 9:48AM 10:14AM REVISIT- Routine (OB) Visit Cat Gutierrez [facility], [facility] 09/11/2020 3:22PM 4:16PM REVISIT- Routine (OB) Visit Cat Gutierrez [facility], [facility] 09/05/2020 9:37AM 10:00AM TCMNV phone call- NO CHARGE Cat Gutierrez [facility] 09/04/2020 09/05/2020 4:54PM 09/05/2020 11:59PM [Patient Encounter] Cat Gutierrez [facility] 08/31/2020 021 2:21PM 08/22/2020 11:59PM telephone conversation Michel Villalba MD 08/2808/22/2020 11:00AM 08/22/2020 11:59PM REVISIT- Routine (OB) Visit Maya Barron MD [facility], [facility] 08/22/2020 1:56PM 2:19PM sick visit Maya Barron MD [facility], [facility] 0 08/15/2020 9:36AM 10:12AM Upper Respiratory Infection Acute, Pollakiuria Obstetrics/ first visit Cat Gutierrez [facility], [facility] 08/09/2020 9:22AM 10:56AM followup Cat Gutierrez [facility] 0 08/02/2020 10:18AM 11:42AM Generalized Anxiety Disorder , Early Stage, Abdominal Pain telephone conversation Michel Villalba MD 07/26/2020 7:59AM 07/26/2020 11:59PM [Patient Encounter] Cat Huston Brenda [facility] 07/28/2020 021 2:20PM 07/26/2020 11:59PM followup Maya Barron MD [facility] 0 07/26/2020 10:39AM 11:02AM , Generalized Anxie ty Disorder sick visit Bandar Cleveland PA-C [facility] 3:36PM 4:30PM Pyrexia followup Maya Barron MD [facility] 0 07/19/2020 10:52AM 11:30AM , Generalized Anxie ty Disorder, Pollakiuria followup Maya Barron MD [facility] 1 09/11/2019 10:43AM 11:14AM Atypical Chest Pain, Adjustm ent Disorder followup Maya Barron MD [facility] 1 08/07/2019 10:43AM 10:59AM Missed followup Maya Barron MD [facility] 05/26 1:45PM 2:11PM with Threatened Problem visit - not contagious Maya Barron MD [facility] 05/24/2020 11:13AM 12:00PM with T hreatened [Patient Encounter] Maya Barron MD 05/24/2020 020 10:17AM 04/19/2020 11:59PM followup Maya Barron MD [facility] 1 11:51AM 12:08PM ANNUAL PE-followup Maya Barron MD [facility] 04/10/2020 8:42AM 9:13AM Routine History and Physical Adult (18 - 64 Yrs), Dysmenorrhea sick visit Maya Barron MD [facility] 0 03/06/2020 3:32PM 3:42PM Sinusitis sick visit Maya Barron MD [facility] 0 02/25/2020 10:46AM 11:12AM Pollakiuria, Female Pelvic P ain followup Maya Barron MD [facility] 01/31 2:25PM 2:51PM Back Strain followup Maya Barron MD [facility] 12/26 1:25PM 1:42PM Amenorrhea, Clostridium Difficile sick visit Maya Barron MD [facility] 0 12/07/2019 4:00PM 4:17PM Abdominal Pain sick visit Maya Barron MD [facility] 0 11/22/2019 3:13PM 3:37PM Esophageal Reflux, Abdominal Pain, Generalized Anxiety Disorder sick visit Maya Barron MD [facility] 0 11/15/2019 12:50PM 1:20PM Fatigue, Nausea, Presyncope Syndrome, Generalized Anxiety Disorder Insurance Includes: Active Insurance Policies Plan Name Member ID Group # Subscriber Relationship Effective Da greg 1 - MANAGED MEDICAID [facility] [id number] Georgiana Nguyen 2020 - Unknown Advance Directives Includes: Current Advance DirectivesNo Advance Directives Recorded Health Concerns Includes: Active Health ConcernsNo Active Health Concerns Recorded Goals Includes: Active GoalsNo Active Goals Recorded Interventions Includes: Interventions for active GoalsNo Interventions Recorded Evaluations & Outcomes Includes: Evaluations & Outcomes for active GoalsNo Outcomes Recorded
--- OUTSIDE RECORDS SUMMARY | 2021-04-29 17:04 | CCD ---
Author Author [facility] Organization [facility] Address [address] [place] [address] Phone Care Team Providers Care Workday Director Name Role Phone Anderson GILL, Maya Duke PP [phone] Christopher BLANCHARD, Kimberly Prajapati Unavailable Unavailable Reason [...] in cidental 11/20/20 Maya Barron MD Future Tests Order Diagnosis Results Due Ordering Provid er Referral Physical Therapist Cervicalgia neck pain 02/05/21 Maya Barron MD Findings Encounter Date Community [...] or concerns sick visit with Cat Gutierrez [facility] 10/30/2018 Assessments Includes: Assessments for [...] as well [Generalized anxiety disorder] followup with aMya Barron MD 07/19/2020 Pollakiuria will evaluate further with UA [Frequency of micturition] followup with Maya Barron MD 07/19/2020 [ state, incidental] followup with Maya Barron MD 07/19/2020 Adjustment disorder Counseling and reas surance provided today. 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 health, [facility]D on health maintenance [Encounter for general adult medical examination with abnormal findings] ANNUAL PE-followup exam/30 with Maya Barron MD 04/07/2019 Vaginal candidiasis sick visit with Cat [facility] 02/11 Pharyngitis urgent visit with Bandar Cleveland PA-C 2018 Sprained ribs ; left sick visit with [facility] Strain of muscle and tendon of front wall of thorax si ck visit with [facility] 10/30/2018 Fracture of fifth cervical vertebral body No Fault with Wanda a [facility] 03/04/2018 Late effects of accident No Fault with [facility] 0 03/04/2018 Instructions Instructions not [...] Recorded Vital Signs Includes: Vital Signs from 11/08/2019 through 11/07/2020 Vital Name 11/07/2020 11:52A 11/03/2020 04:01P 10/31/2020 [...] 119 118 Blood Pressure Sitting R 100/60 Blood Pressure Sitting (mmHg) 104/60 Vital Name 09/05/2020 09:48A 08/22/2020 02:14P 08/15/2020 [...] Pressure Sitting (mmHg) 118/76 116/80 120/80 124/80 Temp-Tympanic (F) 98.2 Height (in) 65 65 65 64 Body Mass Index (kg/m2) 20.6 20.2 20.8 2 0.4 Body Surface Area (m2) 1.61 1.60 1.62 1. 57 Temp-Oral (F) 98.5 98.2 98.5 Oxygen Saturation (%) 98 98 98 Vital Name 05/26/2020 01:50P 05/24/2020 12:01P 04/19/2020 11:58A 04/10/2020 08:48A 03/06/2020 03:38P Pulse Rate-Sitting (bpm) 86 87 72 102 Respiration Rate (breaths/min) 20 20 20 20 Weight (lb) 118.2 117.8 116 116.2 Blood Pressure Sitting (mmHg) 118/72 110/72 108/60 118/82 Height (in) 64 Body Mass Index (kg/m2) 19.9 Body Surface Area (m2) 1.55 Oxygen Saturation (%) 97 Vital Name 02/25/2020 10:59A 02/01/2020 02:38P 12/27/2019 01:31P 12/07/2019 04:04P 11/22/2019 03:25P Pulse Rate-Sitting (bpm) 72 88 68 75 72 Respiration Rate (breaths/min) 20 18 18 20 Blood Pressure Sitting (mmHg) 90/58 98/60 Temp-Oral (F) 97.6 97.6 Pain Level 6 Vital Name 11/15/2019 01:12P Pulse Rate-Sitting (bpm) 74 Respiration Rate (breaths/min) 20 Weight (lb) 114 Blood Pressure Sitting (mmHg) 98/70 Results Includes: Results from 11/08/2019 through 11/07/2020 [facility] Quantitative [facility] Ordered by Maya Barron MD on 10/23/2020 Collected: 10/23/2020 Reported: 10/23/2020 01:21 B-HCG [facility] [id number] MilliInternationalUnitsPerMilliLiter_[Arbitrary_Con (0-10) H (High) Note: @Instrument will autodiluteAPPROXI MATE GESTATION AGE APRROXIMATE HCG RANGE 0-1 WEEK 0 - 50 1-2 WEEKS 40 - 300 2-3 WEEKS 100 - 1,000 3-4 WEEKS 500 - 6,000 1-2 MONTHS 5,000 - 200,000 2-3 MONTHS 10,000 - 100,000 2ND TRIMESTER 3,000 - 50,000 3RD TRIMESTER 1,000 - 50,000Responsible Observer: [facility] Quant [facility] Quantitative 600.5006 (G) Reviewed by Maya Barron MD on 10/23; All test results are final unless otherwise noted. Reported Physicians [facility] Ordered by Maya Barron MD on 10/23/2020 Collected: 10/23/2020 Reported: 10/23/2020 01:21 Reported Physicians See Note None Note: Reported Physicians:Ordering: Yoli NapolesAttending: Yoli SilvaCopy To: Maya Barron Reviewed by Maya Barron MD on 10/23; All test results are final unless otherwise noted. CBC W AUTO DIFF [facility] Ordered by Maya Barron MD [...] Auto See Note (0-2) N (Normal) Note: [id number] Ob cocktail server: IG% IG% 100.1375 (B) [...] results are final unless otherwise noted. D-DIMER [facility] Ordered by Maya Barron MD [...] are final unless otherwise noted. Reported Physicians [facility] Ordered by Maya Barron MD on 10/23/2020 Collected: 10/23/2020 Reported: 10/23/2020 01:22 Reported Physicians See Note None Note: Reported Physicians:Ordering: Yoli NapolesAttending: Charles Silva To: Maya Barron Reviewed by Maya Barron MD on 10/23; All test results are final unless otherwise noted. TROPONIN [facility] Ordered by Maya Barron MD on 10/23/2020 Collected: 10/23/2020 Reported: 10/23/2020 01:03 Troponin I SerPl-mCnc Less Than 0.015 (0.00-0.09) N (Normal) Note: Less than 0.09 NG/ML Negative 0.10 - 0.77 NG/ML High Risk0.78 NG/ML or Greater PositiveThe WHO defined the cutoff (definition for diagnosis of [place])for this method as 0.78 ng/ml.Responsible Observer: Troponin I Troponin I 600.1101 (G) Reviewed by Maya Barron MD on 10/23; All test results are final unless otherwise noted. Reported Physicians [facility] Ordered by Maya Barron MD on 10/23/2020 Collected: 10/23/2020 Reported: 10/23/2020 01:03 Reported Physicians See Note None Note: Reported Physicians:Ordering: Yoli NapolesAttending: Charles Silva To: Maya Barron Reviewed by Maya Barron MD on 10/23; All test results are final unless otherwise noted. FREE T4 (LAB) [facility] Ordered by Maya Barron MD on 10/21/2020 Collected: 10/21/2020 Reported: 10/21/2020 15:17 T4 Free SerPl-mCnc 0.97 NanoGramsPerDeciLiter_[Mass_Concentration_Units] (0.89-1.76) N (Normal) Note: Responsible Observer: FREE T4 Free Thyroxine 600.7005 (D) Reviewed by Maya Barron MD on 10/23; All test results are final unless otherwise noted. Reported Physicians [facility] Ordered by Maya Barron MD on 10/21/2020 Collected: 10/21/2020 Reported: 10/21/2020 15:17 Reported Physicians See Note None Note: Reported Physicians:Ordering: Choco aKurAttending: Choco PardoCopyifan To: Maya Barron Reviewed by Maya Barron MD on 10/23; All test results are final unless otherwise noted. TSH [facility] Ordered by Maya Barron MD on 10/21/2020 Collected: 10/21/2020 Reported: 10/21/2020 15:17 TSH SerPl DL<=0.005 mIU/L-aCnc 1.40 MicroInternationalUnitsPerMilliLiter_[Arbitrary_Con (0.35-5. 50) N (Normal) Note: Responsible Observer: TSH TSH 600 .7055 (D) Reviewed by Maya Barron MD on 10/23; All test results are final unless otherwise noted. Reported Physicians [facility] Ordered by Maya Barron MD on 10/21/2020 Collected: 10/21/2020 Reported: 10/21/2020 15:17 Reported Physicians See Note None Note: Reported Physicians:Ordering: Choco KaurAttending: Choco PardoCopyifan To: Maya Barron Reviewed by Maya Barron MD on 10/23; All test results are final unless otherwise noted. UA W/ CULTURE IF ABNORMAL [facility] Ordered by Maya Barron MD on 10/19/2020 Collected: 10/19/2020 Reported: 10/19/2020 16:31 Urobilinogen Ur Ql See Note (0.2-1 EU/dl) None Note: 0.2 EU/dl0.2 EU/[id number] E U/dlResponsible Observer: UROBILINOGEN UROBILINOGEN 300.4500 (C) RBC # Ur Strip NEGATIVE (NEGATIVE) None Note: Responsible Observer: BLOOD BLOOD 300.4652 (C) Prot Ur Ql Strip See Note (NEGATIVE) None Note: [id number] EResponsible Observer: PROTEIN PROTEIN 300.3750 (C) Ketones Ur Ql Strip See Note (NEGATIVE) None Note: [id number] EResponsible Observer: KETONE KETONE 300.3900 (C) Bilirub Ur Ql Strip.auto See Note (NEGATIVE) None Note: [id number] EResponsible Observer: BILIRUBIN BILIRUBIN 300.4550 (C) Glucose Ur Strip.auto-mCnc 100 mg/dl (NEGATIVE) None Note: Responsible Observer: GLUCOSE GLUC OSE 300.3850 (C) Appearance Ur See Note (CLEAR) None Note: CLEARCLEARLCLEARResponsible Observ er: APPEARANCE APPEARANCE 300.3400 (A) Color Ur See Note None Note: YELLOWYELLOWLYELLOWResponsible Obs erver: COLOR COLOR 300.3330 (A) Leukocyte esterase Ur Ql Strip See Note (NEGATIVE) None Note: [id number] EResponsible Observer: LEUKOCYTES LEUKOCYTES 300.3576 (C) Nitrite Ur Ql Strip See Note (NEGATIVE) None Note: [id number] EResponsible Observer: NITRITE NITRITE 300.3652 (B) pH [...] are final unless otherwise noted. Reported Physicians [facility] Ordered by Maya Barron MD on 10/19/2020 Collected: 10/19/2020 Reported: 10/19/2020 16:31 Reported Physicians See Note None Note: Reported Physicians:Ordering: Les Vanegasding: Fady Raza To: Maya Barron Reviewed by Maya Barron MD on 10/20; All test results are final unless otherwise noted. URINE DRUG SCREEN -([facility]) [facility] Ordered by Maya Barron MD on 10/19/2020 Collected: 10/19/2020 Reported: 10/19/2020 16:40 PCP Ur Ql Scn>25 ng/mL See Note (Cutoff 25) None Note: [id number] E@Reenter manual test result: NEGATIVE@by Jia Lentz at 10/19/20 1639.Responsible Observer: PCP Urine Phencyclidine (PCP) Scrn 400.5120 (A) THC Ur Ql Scn>50 ng/mL See Note (Cutoff 50) None Note: [id number] EResponsible Observer: Marijuana (THC) Ur Marijuana (THC) Screen 400.5110 (A) Benzodiaz Ur Ql Scn See Note (Cutoff 150) None Note: [id number] E@Reenter manual test result: NEGATIVE@by Jia Lentz at 10/19/20 1640.Responsible Observer: Benzodiazepines Urine Benzodiazepines Screen 400.5170 (A) Opiates Ur Ql Scn See Note (Cutoff 100) None Note: [id number] E@Reenter manual test result: NEGATIVE@by Jia Lentz at 10/19/20 1640.Responsible Observer: Opiates Urine Opiates Screen 400.5150 (A) Tricyclics Ur Ql Scn See Note (Cutoff 300) None Note: [id number] E@Reenter manual test result: NEGATIVE@by Jia Lentz at 10/19/20 1640.Responsible Observer: TCA Ur Tricyclic Antidepressants 400.5180 (A) Cocaine Ur Ql Scn See Note (Cutoff 150) None Note: [id number] E@Reenter manual test result: NEGATIVE@by Jia Lentz at 10/19/20 1640.Responsible Observer: Cocaine Urine Cocaine Screen 400.5130 (A) Propoxyph+Nor Ur Ql Scn See Note (Cutoff 300) None Note: [id number] E@Reenter manual test result: NEGATIVE@by Jia Lentz at 10/19/20 1640.Responsible Observer: Propoxyphene Urine Propoxyphene Screen 400.5220 (A) Methadone Ur Ql Scn See Note (Cutoff 200) None Note: [id number] E@Reenter manual test result: NEGATIVE@by Jia Lentz at 10/19/20 1640.Responsible Observer: Methadone Urine Methadone Screen 400.5190 (A) Methamphet Ur Ql Scn See Note (Cutoff 500) None Note: [id number] E@Reenter manual test result: NEGATIVE@by Jia Lentz at 10/19/20 1640.Responsible Observer: Methamphetamine Urine Methamphetamines Screen 400.5140 (A) oxyCODONE Ur Ql Scn See Note (Cutoff 100) None Note: [id number] E@Reenter manual test result: NEGATIVE@by Jia Lentz at 10/19/20 1640.Responsible Observer: Oxycodone Urine Oxycodone Screen 400.5210 (A) Buprenorphine Ur Ql See Note (Cutoff 10) None Note: [id number] E@Reenter manual test result: NEGATIVE@by Jia Lentz at 10/19/20 1640.Responsible Observer: Buprenorphine Urine Buprenorphine Screen 400.5230 (A) Amphetamines Ur Ql Scn>500 ng/mL See Note (Cutoff 500) None Note: [id number] E@Reenter manual test result: NEGATIVE@by Jia Lentz at 10/19/20 1640.Responsible Observer: Amphetamines Urine Amphetamines Screen 400.5160 (A) Barbiturates Ur Ql Scn>200 ng/mL See Note (Cutoff 200) None Note: [id number] E@Reenter manual test result: NEGATIVE@by Jia Lentz at 10/19/20 1640.Responsible Observer: Barbiturates Urine Barbiturates 400.5200 (A) Reviewed by Maya Barron MD on 10/20; All test results are final unless otherwise noted. Reported Physicians [facility] Ordered by Maya Barron MD on 10/19/2020 Collected: 10/19/2020 Reported: 10/19/2020 16:40 Reported Physicians See Note None Note: Reported Physicians:Ordering: Les Vanegas AAttending: Fady Raza To: Maya Barron Reviewed by Maya Barron MD on 10/20; All test results are final unless otherwise noted. TSH w/ reflex to Free T4 [facility] Ordered by Maya Barron MD on 10/19/2020 Collected: 10/19/2020 Reported: 10/19/2020 16:08 TSH SerPl DL<=0.005 mIU/L-aCnc 1.66 MicroInternationalUnitsPerMilliLiter_[Arbitrary_Con (0.35-5. 50) N (Normal) Note: Responsible Observer: TSH TSH 600 .7060 (D) Reviewed by Maya Barron MD on 10/20; All test results are final unless otherwise noted. Reported Physicians [facility] Ordered by Maya Barron MD on 10/19/2020 Collected: 10/19/2020 Reported: 10/19/2020 16:08 Reported Physicians See Note None Note: Reported Physicians:Ordering: Les Vanegas: Fady Raza To: Maya Barron Reviewed by Maya Barron MD on 10/20; All test results are final unless otherwise noted. TROPONIN [facility] Ordered by Maya Barron MD on 10/19/2020 Collected: 10/19/2020 Reported: 10/19/2020 16:10 Troponin I SerPl-mCnc Less Than 0.015 (0.00-0.09) N (Normal) Note: Less than 0.09 NG/ML Negative 0.10 - 0.77 NG/ML High Risk0.78 NG/ML or Greater PositiveThe WHO defined the cutoff (definition for diagnosis of [place])for this method as 0.78 ng/ml.Responsible Observer: Troponin I Troponin I 600.1101 (G) Reviewed by Maya Barron MD on 10/20; All test results are final unless otherwise noted. Reported Physicians [facility] Ordered by Maya Barron MD on 10/19/2020 Collected: 10/19/2020 Reported: 10/19/2020 16:10 Reported Physicians See Note None Note: Reported Physicians:Ordering: Les Vanegas: Fady Raza To: Maya Barron Reviewed by Maya Barron MD on 10/20; All test results are final unless otherwise noted. CRP, C-REACTIVE PROTEIN [facility] Ordered by Maya Barron MD on 10/19/2020 Collected: 10/19/2020 Reported: 10/19/2020 16:08 CRP SerPl-mCnc 7.5 MilliGramsPerLiter_[Mass_Concentration_Units] (0.0-5.0) H (High) Note: Responsible Observer: CRP C-Reacti ve Protein 401.4355 (H) Reviewed by Maya Barron MD on 10/20; All test results are final unless otherwise noted. SED RATE [facility] Ordered by Maya Barron MD on 10/19/2020 Collected: 10/19/2020 Reported: 10/19/2020 16:32 ESR Bld Qn Westrgrn 22 (0-20) H (High) Note: @Reenter manual test result: 22@by Jia Lentz at 10/19/20 1632.Responsible Observer: SED RATE SED RATE 100.6400 (B) Reviewed by Maya Barron MD on 10/20; All test results are final unless otherwise noted. Reported Physicians [facility] Ordered by Maya Barron MD on 10/19/2020 Collected: 10/19/2020 Reported: 10/19/2020 16:33 Reported Physicians See Note None Note: Reported Physicians:Ordering: Les Vanegastending: Fady Raza To: Maya Barron Reviewed by Maya Barron MD on 10/20; All test results are final unless otherwise noted. CMP [facility] Ordered by Maya Barron MD [...] unless otherwise noted. CBC W AUTO DIFF [facility] Ordered by Maya Barron MD [...] Auto See Note (0-2) N (Normal) Note: [id number] Ob cocktail server: IG% IG% 100.1375 (B) [...] are final unless otherwise noted. Reported Physicians [facility] Ordered by Maya Barron MD on 10/19/2020 Collected: 10/19/2020 Reported: 10/19/2020 16:33 Reported Physicians See Note None Note: Reported Physicians:Ordering: Les Vanegasding: Fady Raza To: Maya Barron Reviewed by Maya Barron MD on 10/20; All test results are final unless otherwise noted. PT/PTT [facility] Ordered by Maya Barron MD [...] (A) Reviewed by Maya Barron MD on 03/29 /2021; All test results are final unless otherwise noted. Reported Physicians [facility] Ordered by Maya Barron MD on 10/08/2020 Collected: 10/08/2020 Reported: 10/08/2020 03:22 Reported Physicians See Note None Note: Reported Physicians:Ordering: Sana Recinosending: Sammie Ann To: Maya Barron Reviewed by Maya Barron MD on 10/09; All test results are final unless otherwise noted. BMP [facility] Ordered by Maya Barron MD [...] are final unless otherwise noted. Reported Physicians [facility] Ordered by Maya Barron MD on 10/08/2020 Collected: 10/08/2020 Reported: 10/08/2020 03:21 Reported Physicians See Note None Note: Reported Physicians:Ordering: Sana Recinosending: Jasper AnnhCtricia To: Maya Barron Reviewed by Maya Barron MD on 10/09; All test results are final unless otherwise noted. CBC W AUTO DIFF [facility] Ordered by Maya Barron MD [...] Auto See Note (0-2) N (Normal) Note: [id number] Ob cocktail server: IG% IG% 100.1375 (B) [...] results are final unless otherwise noted. MAGNESIUM [facility] Ordered by Maya Barron MD on 10/08/2020 Collected: 10/08/2020 Reported: 10/08/2020 03:17 Magnesium SerPl-mCnc 1.8 MilliGramsPerDeciLiter_[Mass_Concentration_Units] (1.3-2.7) N (Normal) Note: Responsible Observer: Magnesium Ma gnesium 400.3300 (G) Reviewed by Maya Barron MD on 10/09; All test results are final unless otherwise noted. D-DIMER [facility] Ordered by Maya Barron MD [...] are final unless otherwise noted. Reported Physicians [facility] Ordered by Maya Barron MD on 10/08/2020 Collected: 10/08/2020 Reported: 10/08/2020 03:27 Reported Physicians See Note None Note: Reported Physicians:Ordering: Sana Recinosending: Sammie Ann To: Maya Barron Reviewed by Maya Barron MD on 10/09; All test results are final unless otherwise noted. TSH w/ reflex to Free T4 [facility] Ordered by Maya Barron MD on 10/04/2020 Collected: 10/04/2020 Reported: 10/04/2020 17:42 TSH SerPl DL<=0.005 mIU/L-aCnc 1.92 MicroInternationalUnitsPerMilliLiter_[Arbitrary_Con (0.35-5. 50) N (Normal) Note: Responsible Observer: TSH TSH 600 .7060 (D) Reviewed by Maya Barron MD on 10/09; All test results are final unless otherwise noted. Reported Physicians [facility] Ordered by Maya Barron MD on 10/04/2020 Collected: 10/04/2020 Reported: 10/04/2020 17:42 Reported Physicians See Note None Note: Reported Physicians:Ordering: Les Vanegastending: Fady Raza To: Maya Barron Reviewed by Maya Barron MD on 10/09; All test results are final unless otherwise noted. CBC W AUTO DIFF [facility] Ordered by Maya Barron MD [...] Auto See Note (0-2) N (Normal) Note: [id number] Ob cocktail server: IG% IG% 100.1375 (B) [...] are final unless otherwise noted. Reported Physicians [facility] Ordered by Maya Barron MD on 10/04/2020 Collected: 10/04/2020 Reported: 10/04/2020 17:42 Reported Physicians See Note None Note: Reported Physicians:Ordering: Les Vanegasding: Fady Raza To: Maya Barron Reviewed by Maya Barron MD on 10/09; All test results are final unless otherwise noted. SED RATE [facility] Ordered by Maya Barron MD on 10/04/2020 Collected: 10/04/2020 Reported: 10/04/2020 18:05 ESR Bld Qn Westrgrn 16 (0-20) N (Normal) Note: @Reenter manual test result: 16@by Jia Lentz at 10/04/20 1805.Responsible Observer: SED RATE SED RATE 100.6400 (B) Reviewed by Maya Barron MD on 10/09; All test results are final unless otherwise noted. Reported Physicians [facility] Ordered by Maya Barron MD on 10/04/2020 Collected: 10/04/2020 Reported: 10/04/2020 18:06 Reported Physicians See Note None Note: Reported Physicians:Ordering: Les Vanegas: Fady Raza To: Maya Barron Reviewed by Maya Barron MD on 10/09; All test results are final unless otherwise noted. TROPONIN [facility] Ordered by Maya Barron MD on 10/04/2020 Collected: 10/04/2020 Reported: 10/04/2020 17:35 Troponin I SerPl-mCnc Less Than 0.015 (0.00-0.09) N (Normal) Note: Less than 0.09 NG/ML Negative 0.10 - 0.77 NG/ML High Risk0.78 NG/ML or Greater PositiveThe WHO defined the cutoff (definition for diagnosis of [place])for this method as 0.78 ng/ml.Responsible Observer: Troponin I Troponin I 600.1101 (G) Reviewed by Maya Barron MD on 10/09; All test results are final unless otherwise noted. Reported Physicians [facility] Ordered by Maya Barron MD on 10/04/2020 Collected: 10/04/2020 Reported: 10/04/2020 17:35 Reported Physicians See Note None Note: Reported Physicians:Ordering: Les Vanegas: Fady Raza To: Maya Barron Reviewed by Maya Barron MD on 10/09; All test results are final unless otherwise noted. CBC W AUTO DIFF [facility] Ordered by Maya Barron MD [...] Auto See Note (0-2) N (Normal) Note: [id number] Ob cocktail server: IG% IG% 100.1375 (B) [...] are final unless otherwise noted. Reported Physicians [facility] Ordered by Maya Barron MD on 10/03/2020 Collected: 10/03/2020 Reported: 10/03/2020 20:03 Reported Physicians See Note None Note: Reported Physicians:Ordering: Yoli NapolesAttending: Charles Silva To: Maya Barron Reviewed by Maya Barron MD on 10/04; All test results are final unless otherwise noted. C Quantitative [facility] Ordered by Maya Barron MD on 10/03/2020 Collected: 10/03/2020 Reported: 10/03/2020 20:23 B-HCG SerPl-aCnc 29747 MilliInternationalUnitsPerMilliLiter_[Arbitrary_Con (0-10) H (High) Note: @Instrument will [...] are final unless otherwise noted. Reported Physicians [facility] Ordered by Maya Barron MD on 10/03/2020 Collected: 10/03/2020 Reported: 10/03/2020 20:23 Reported Physicians See Note None Note: Reported Physicians:Ordering: Yoli NapolesAttending: Charles Silva To: Maya Barron Reviewed by Maya Barron MD on 10/04; All test results are final unless otherwise noted. TROPONIN [facility] Ordered by Maya Barron MD on 10/03/2020 Collected: 10/03/2020 Reported: 10/03/2020 20:07 Troponin I SerPl-mCnc Less Than 0.015 (0.00-0.09) N (Normal) Note: Less than 0.09 NG/ML Negative 0.10 - 0.77 NG/ML High Risk0.78 NG/ML or Greater PositiveThe WHO defined the cutoff (definition for diagnosis of [place])for this method as 0.78 ng/ml.Responsible Observer: Troponin I Troponin I 600.1101 (G) Reviewed by Maya Barron MD on 10/04; All test results are final unless otherwise noted. Reported Physicians [facility] Ordered by Maya Barron MD on 10/03/2020 Collected: 10/03/2020 Reported: 10/03/2020 20:07 Reported Physicians See Note None Note: Reported Physicians:Ordering: Yoli NapolesAttending: Charles Silva To: Maya Barron Reviewed by Maya Barron MD on 10/04; All test results are final unless otherwise noted. MANUAL DIFF [facility] Ordered by Maya Barron MD [...] are final unless otherwise noted. Reported Physicians [facility] Ordered by Maya Barron MD on 10/03/2020 Collected: 10/03/2020 Reported: 10/03/2020 19:56 Reported Physicians See Note None Note: Reported Physicians:Ordering: Cliff Napolesending: Charles Silva To: Maya Barron Reviewed by Maya Barron MD on 10/04; All test results are final unless otherwise noted. FREE T4 (LAB) [facility] Ordered by Maya Barron MD on 10/03/2020 Collected: 10/03/2020 Reported: 10/03/2020 20:08 T4 Free SerPl-mCnc 0.97 NanoGramsPerDeciLiter_[Mass_Concentration_Units] (0.89-1.76) N (Normal) Note: Responsible Observer: FREE T4 Free Thyroxine 600.7005 (D) Reviewed by Maya Barron MD on 10/04; All test results are final unless otherwise noted. Reported Physicians [facility] Ordered by Maya Barron MD on 10/03/2020 Collected: 10/03/2020 Reported: 10/03/2020 20:08 Reported Physicians See Note None Note: Reported Physicians:Ordering: Yoli NapolesAttending: Charles Silva To: Maya Barron Reviewed by Maya Barron MD on 10/04; All test results are final unless otherwise noted. ADD ON MICROSCOPIC [facility] Ordered by Maya Barron MD on 10/03/2020 Collected: 10/03/2020 Reported: 10/03/2020 19:52 ADD ON MICROSCOPIC See Note (0-5) None Note: NOTES OTHER/NOT INTERPRETED Bacteria UrnS Ql Micro SMALL AMOUNT Bacteria UrnS Ql Micro SMALL AMOUNT Bacteria UrnS Ql Micro L Bacteria UrnS Ql Micro Bacteria UrnS Ql Micro Bacteria UrnS Ql Micro Bacteria UrnS Ql Micro [id number] Bacteria UrnS Ql Micro Bacteria UrnS Ql [...] are final unless otherwise noted. Reported Physicians [facility] Ordered by Maya Barron MD on 10/03/2020 Collected: 10/03/2020 Reported: 10/03/2020 19:52 Reported Physicians See Note None Note: Reported Physicians:Ordering: Yoli NapolesAttending: Charles Silva To: Maya Barron Reviewed by Maya Barron MD on 10/04; All test results are final unless otherwise noted. UA W/ CULTURE IF ABNORMAL [facility] Ordered by Maya Barron MD on 10/03/2020 Collected: 10/03/2020 Reported: 10/03/2020 19:52 Urobilinogen Ur Ql See Note (0.2-1 EU/dl) None Note: 0.2 EU/dl0.2 EU/[id number] E U/dlResponsible Observer: UROBILINOGEN UROBILINOGEN 300.4500 (C) RBC # Ur Strip NEGATIVE (NEGATIVE) None Note: Responsible Observer: BLOOD BLOOD 300.4652 (C) Prot Ur Ql Strip See Note (NEGATIVE) None Note: [id number] EResponsible Observer: PROTEIN PROTEIN 300.3750 (C) Ketones Ur Ql Strip See Note (NEGATIVE) None Note: [id number] EResponsible Observer: KETONE KETONE 300.3900 (C) Bilirub Ur Ql Strip.auto See Note (NEGATIVE) None Note: [id number] EResponsible Observer: BILIRUBIN BILIRUBIN 300.4550 (C) Glucose Ur Strip.auto-mCnc NEGATIVE (NEGATIVE) None Note: Responsible Observer: GLUCOSE GLUC OSE 300.3850 (C) Appearance Ur See Note (CLEAR) None Note: CLEARCLEARLCLEARResponsible Observ er: APPEARANCE APPEARANCE 300.3400 (A) Color Ur See Note None Note: YELLOWYELLOWLYELLOWResponsible Obs erver: COLOR COLOR 300.3330 (A) Leukocyte esterase Ur Ql Strip See Note (NEGATIVE) None Note: [id number]@DO MICR O!!!!A Culture has been added to this specimen per established criteriaResponsible Observer: LEUKOCYTES LEUKOCYTES 300.3576 (C) Nitrite Ur Ql Strip See Note (NEGATIVE) None Note: [id number] EResponsible Observer: NITRITE NITRITE 300.3652 (B) pH [...] are final unless otherwise noted. Urine culture [facility] Ordered by Maya Barron MD on 10/03/2020 Collected: 10/03/2020 Reported: 10/04/2020 13:10 Bacteria Ur Cult See Note None Note: NGNo growth.L1NG NOTES See Note None Note: @10/03/20 195: Urine culture adde d. RFLXG = CULT.ADD. Reviewed by Maya Barron MD on 10/04; All test results are final unless otherwise noted. Reported Physicians [facility] Ordered by Maya Barron MD on 10/03/2020 Collected: 10/03/2020 Reported: 10/04/2020 13:10 Reported Physicians See Note None Note: Reported Physicians:Ordering: Yoli NapolesAttending: Charles Silva To: Maya Barron Reviewed by Maya Barron MD on 10/04; All test results are final unless otherwise noted. BHCG, QUANTITATIVE [facility] Ordered by Maya Barron MD on 09/18/2020 Collected: 09/18/2020 Reported: 09/18/2020 20:21 B-HCG [facility] [id number] MilliInternationalUnitsPerMilliLiter_[Arbitrary_Con (0-10) H (High) Note: APPROXIMATE GESTATION [...] are final unless otherwise noted. Reported Physicians [facility] Ordered by Maya Barron MD on 09/18/2020 Collected: 09/18/2020 Reported: 09/18/2020 20:22 Reported Physicians See Note None Note: Reported Physicians:Ordering: Yoli NapolesAttending: Charles Silva To: Maya Barron Reviewed by Maya Barron MD on 09/20; All test results are final unless otherwise noted. CBC W AUTO DIFF [facility] Ordered by Maya Barron MD [...] Auto See Note (0-2) N (Normal) Note: [id number] Ob cocktail server: IG% IG% 100.1375 (B) [...] are final unless otherwise noted. Reported Physicians [facility] Ordered by Maya Barron MD on 09/18/2020 Collected: 09/18/2020 Reported: 09/18/2020 20:10 Reported Physicians See Note None Note: Reported Physicians:Ordering: Yoli NapolesAttending: Charles Silva To: Maya Barron Reviewed by Maya Barron MD on 09/20; All test results are final unless otherwise noted. TROPONIN [facility] Ordered by Maya Barron MD on 09/18/2020 Collected: 09/18/2020 Reported: 09/18/2020 20:10 Troponin I SerPl-mCnc Less Than 0.015 (0.00-0.09) N (Normal) Note: Less than 0.09 NG/ML Negative 0.10 - 0.77 NG/ML High Risk0.78 NG/ML or Greater PositiveThe WHO defined the cutoff (definition for diagnosis of [place])for this method as 0.78 ng/ml.Responsible Observer: Troponin I Troponin I 600.1101 (G) Reviewed by Maya Barron MD on 09/20; All test results are final unless otherwise noted. Reported Physicians [facility] Ordered by Maya Barron MD on 09/18/2020 Collected: 09/18/2020 Reported: 09/18/2020 20:10 Reported Physicians See Note None Note: Reported Physicians:Ordering: Cliff Napolesending: Charles Silva To: Maya Barron Reviewed by Maya Barron MD on 09/20; All test results are final unless otherwise noted. Urine culture [facility] Ordered by Cat Gutierrez RPA on 09/11/2020 Collected: 09/11/2020 Reported: 09/12/2020 13:11 Bacteria Ur Cult See Note None Note: NGNo growth.L1NG NOTES See Note None Note: GEORGIANA PICKARD IN OTHER NAME IN MEDICAL RECORD Reviewed by Cat Gutierrez RPA on 09/12; All test results are final unless otherwise noted. Reported Physicians [facility] Ordered by Cat Gutierrez RPA on 09/11/2020 Collected: 09/11/2020 Reported: 09/12/2020 13:11 Reported Physicians See Note None Note: Reported Physicians:Ordering: Cat ConwayAttending: Cat Gutierrez Reviewed by Cat Gutierrez RPA on 09/12; All test results are final unless otherwise noted. UA W/ CULTURE IF ABNORMAL [facility] Ordered by Maya Barron MD on 09/10/2020 Collected: 09/10/2020 Reported: 09/10/2020 17:48 Urobilinogen Ur Ql See Note (0.2-1 EU/dl) None Note: 0.2 EU/dl0.2 EU/[id number] E U/dlResponsible Observer: UROBILINOGEN UROBILINOGEN 300.4500 (C) RBC # Ur Strip NEGATIVE (NEGATIVE) None Note: Responsible Observer: BLOOD BLOOD 300.4652 (C) Prot Ur Ql Strip See Note (NEGATIVE) None Note: [id number] EResponsible Observer: PROTEIN PROTEIN 300.3750 (C) Ketones Ur Ql Strip See Note (NEGATIVE) None Note: [id number] ble Observer: KETONE KETONE 300.3900 (C) Bilirub Ur Ql Strip.auto See Note (NEGATIVE) None Note: [id number] EResponsible Observer: BILIRUBIN BILIRUBIN 300.4550 (C) Glucose Ur Strip.auto-mCnc NEGATIVE (NEGATIVE) None Note: Responsible Observer: GLUCOSE GLUC OSE 300.3850 (C) Appearance Ur See Note (CLEAR) None Note: CLEARCLEARLCLEARResponsible Observ er: APPEARANCE APPEARANCE 300.3400 (A) Color Ur See Note None Note: YELLOWYELLOWLYELLOWResponsible Obs erver: COLOR COLOR 300.3330 (A) Leukocyte esterase Ur Ql Strip See Note (NEGATIVE) None Note: [id number] EResponsible Observer: LEUKOCYTES LEUKOCYTES 300.3576 (C) Nitrite Ur Ql Strip See Note (NEGATIVE) None Note: [id number] EResponsible Observer: NITRITE NITRITE 300.3652 (B) pH [...] are final unless otherwise noted. Reported Physicians [facility] Ordered by Maya Barron MD on 09/10/2020 Collected: 09/10/2020 Reported: 09/10/2020 17:48 Reported Physicians See Note None Note: Reported Physicians:Ordering: Les Vanegas: Fady Raza To: Maya Barron Reviewed by Maya Barron MD on 09/11; All test results are final unless otherwise noted. BHCG, QUANTITATIVE [facility] Ordered by Maya Barron MD on 09/10/2020 Collected: 09/10/2020 Reported: 09/10/2020 15:48 B-HCG [facility] [address] MilliInternationalUnitsPerMilliLiter_[Arbitrary_Con (0-10) H (High) Note: @Instrument will [...] are final unless otherwise noted. Reported Physicians [facility] Ordered by Maya Barron MD on 09/10/2020 Collected: 09/10/2020 Reported: 09/10/2020 15:49 Reported Physicians See Note None Note: Reported Physicians:Ordering: Les Vanegas: Fady Raza To: Maya Barron Reviewed by Maya Barron MD on 09/11; All test results are final unless otherwise noted. ABO/Rh Type [facility] Ordered by Maya Barron MD on 09/10/2020 Collected: 09/10/2020 Reported: 09/10/2020 15:43 Blood bank studies Yes None Note: Responsible Observer: Prev. Histor y? Previous History? 100.0800 (A) Blood Type See Note None Note: OPO PositiveLResponsible Observer: Blood Type Blood Type 110.0950 (C) Reviewed by Maya Barron MD on 09/11; All test results are final unless otherwise noted. Reported Physicians [facility] Ordered by Maya Barron MD on 09/10/2020 Collected: 09/10/2020 Reported: 09/10/2020 15:43 Reported Physicians See Note None Note: Reported Physicians:Ordering: Les Vanegas AAttending: Fady Raza To: Maya Barron Reviewed by Maya Barron MD on 09/11; All test results are final unless otherwise noted. COVID QUEST [facility] Ordered by Maya Barron MD [...] findings,re- testing should be considered in consultation with[place] [facility] [place] health authorities. Laboratory test results shouldalways be considered in the context of clinicalobservations and epidemiological data in making a finaldiagnosis and patient management decisions.Please review the "Fact Sheets" and FDA authorizedlabeling available for health care providers andpatients using the following websites:https://www.Fuel (fuelpowered.com) .com/home/Covid-19/HCP/NAAT/fact-yaerh7bzzig://www.Fuel (fuelpowered.com).Socialware/home/Cov id-19/Patients/NAAT/fact-dzxzb7Mryd test has been authorized by the FDA under anEmergency Use Authorization (EUA) for use by authorizedlaboratories.Due to the current public health emergency, [facility] is receiving a high volume of samples [...] information about COVID-19 can be foundat the [facility] website:www.[facility].com/Covid19.THIS TEST WAS PERFORMED AT:[facility] [id number] ONEILLesponsible Observer: COVID-19 COVID-19 ТАТЬЯНА (SARS-CoV-2) [id number] 914.7545 ([facility]) Reviewed by Maya Barron MD on 08/25; All test results are final unless otherwise noted. Reported Physicians [facility] Ordered by Maya Barron MD on 08/23/2020 Collected: 08/23/2020 Reported: 08/25/2020 03:57 Reported Physicians See Note None Note: Reported Physicians:Ordering: Sana Recinosending: Sammie Ann To: Maya Barron Reviewed by Maya Barrno MD on 08/25; All test results are final unless otherwise noted. Rapid Strep [facility] Ordered by Maya Barron MD on 08/15/2020 [address] [place], [address] Collected: 08/15/2020 Reported: 08/15/2020 11:47 tel : strep antigen normal (negative) N (Normal) Reviewed by Maya Barron MD on 08/15; All test results are final unless otherwise noted. Urinalysis w/out microscopy [facility] Ordered by Maya Barron MD on 08/15/2020 [facility] [place], [address] Specimen Source: Urine Collected: 08/15/2020 Reporte d: 08/15/2020 11:03 tel:[phone] bilirubin normal (neg) N (Normal) blood normal [...] unless otherwise noted. Extended hours FLU/COV2 NAAT [facility] Ordered by Maya Barron MD on 08/15/2020 Collected: 08/15/2020 Reported: 08/15/2020 15:55 Extended hours FLU/COV2 NAAT See Note None Note: TNPNo Reportable ResultLTNPNo Repo rtable JzmzmsA8SLR NOTES See Note None Note: GEORGIANA PICKARD IN OTHER NAME IN MEDICAL RECORD Reviewed by Maya Barron MD on 08/16; All test results are final unless otherwise noted. Reported Physicians [facility] Ordered by Maya Barron MD on 08/15/2020 Collected: 08/15/2020 Reported: 08/15/2020 15:55 Reported Physicians See Note None Note: Reported Physicians:Ordering: Maya AlvarengaAttending: Maya Barron Reviewed by Maya Barron MD on 08/16; All test results are final unless otherwise noted. Sweta Raquel SARS/FLU [facility] Ordered by Maya Barron MD on 08/15/2020 Collected: 08/15/2020 Reported: 08/15/2020 15:55 Sweta Raquel SARS/FLU See Note None Note: Sweta Raquel is a rapid, automated q ualitative anddifferentiation of Influenza type A,B and RZQW-EWS-5NVNI-RT-PCR testNORMAL VALUE IS "NOT DETECTED".Limitations of the sweta raquel Influenza A/B & IFKX-FAZ-2onqgm method.Modifications to manufacturers recommendation and proceduresmay alter performance of the test.Negative results do not preclude Influenza A,B or SARS- VWE5fwyvzsptgz and should not be used as the [...] out diseases caused by other bacterialor viral pathogens.19000-5FRRH-kzo CoV RNA Resp Ql ТАТЬЯНА+probeLNNSARS SARS-COV-2 NOT [id number]-EAV-3 NOT QOPWZFEU72530-8VJQKE RNA Resp Ql ТАТЬЯНА+probeLNNFLUAInfluenza A Not [id number] A Not Cdulzhng18632-4UQCFY RNA Resp Ql ТАТЬЯНА+probeLNNINBInfluenza B Not VhylkmnsL9522417705Vrrivlwdr B Not Detected NOTES See Note None Note: GEORGIANA PICKARD IN OTHER NAME IN MEDICAL RECORD Reviewed by Maya Barron MD on 08/18; All test results are final unless otherwise noted. Throat culture [facility] Ordered by Maya Barron MD on 08/15/2020 Collected: 08/15/2020 Reported: 08/17/2020 06:37 Throat culture results Normal Deisy None Reviewed by Maya Barron MD on 08/18; All test results are final unless otherwise noted. Reported Physicians [facility] Ordered by Maya Barron MD on 08/15/2020 Collected: 08/15/2020 Reported: 08/17/2020 06:37 Reported Physicians See Note None Note: Reported Physicians:Ordering: Maya AlvarengaAttending: Maya Barron Reviewed by Maya Barron MD on 08/18; All test results are final unless otherwise noted. HPVI [facility] Ordered by Cat Gutierrez RPA on 08/09/2020 Collected: 08/09/2020 Reported: 08/15/2020 06:53 Thin Prep Vag See Note None Note: See scanned reportSee scanned repo rtLSee scanned reportResponsible Observer: TP w/HPV if ASC Thinprep w/HPV if ASCUS 805.1454 ([facility]) NOTES See Note None Note: OZQ04-97Umkpuiygej Technique: BRUS H-SPATULABody Site: CERVIX Reviewed by Cat Gutierrez RPA on 08/15; All test results are final unless otherwise noted. Reported Physicians [facility] Ordered by Cat Gutierrez RPA on 08/09/2020 Collected: 08/09/2020 Reported: 08/15/2020 06:53 Reported Physicians See Note None Note: Reported Physicians:Ordering: Atte nding: Rigo Gutierrez To: Maya Barron Reviewed by Cat Gutierrez RPA on 08/15; All test results are final unless otherwise noted. GCAMP [facility] Ordered by Cat Gutierrez RPA on 08/09/2020 Collected: 08/09/2020 Reported: 08/11/2020 06:52 C trach rRNA XXX Ql ТАТЬЯНА+probe See Note (NOT DETECTED) None Note: NOT DETECTEDNOT [id number] 6NOT DETECTEDResponsible Observer: C.Trach RNA Chlamydia trachomatis DNA-ТАТЬЯНА 16516000 913.9900 ([facility]) N gonorrhoea rRNA XXX Ql ТАТЬЯНА+probe See Note (NOT DETECTED) None Note: NOT DETECTEDNOT [id number] 6NOT DETECTEDResponsible Observer: GC RNA Neisseria gonorrhoeae DNA -ТАТЬЯНА 80146143 913.9905 ([facility]) Chlamydia/GC DNA Note SEE NOTE None Note: The analytical performance charact eristics of thisassay, when used to test SurePath(TM) specimens have beendetermined by [facility]. The modifications havenot been cleared or approved by the FDA. This assay hasbeen validated pursuant to the CLIA regulations and isused for clinical purposes.For additional information, please refer tohttps://education.Fuel (fuelpowered.com).Socialware/faq/FIN699(This link is being provided for information/educational purposes only.)THIS TEST WAS PERFORMED AT:[facility] [address]CLAUDY ONEILLesponsible Observer: GC/Chlam Note Chlamydia/GC DNA Note 26563148 913.9907 (A) NOTES See Note None Note: PICKARD:IN OTHER NAME IN MEDICAL RECORD Reviewed by Cat Gutierrez RPA on 08/12; All test results are final unless otherwise noted. Reported Physicians [facility] Ordered by Cat Gutierrez RPA on 08/09/2020 Collected: 08/09/2020 Reported: 08/11/2020 06:52 Reported Physicians See Note None Note: Reported Physicians:Ordering: Atte nding: Rigo Gutierrez To: Maya Barron Reviewed by Cat Gutierrez RPA on 08/12; All test results are final unless otherwise noted. AFFIRM [facility] Ordered by Cat Gutierrez RPA on 08/09/2020 Collected: 08/09/2020 Reported: 08/11/2020 06:52 Dionna species DNA Probe NOT DETECTED (NOT DETECTED) None Note: THIS TEST WAS PERFORMED AT:[facility] [address]QIALMCCLAUDY ONEILLesponsible Observer: Dionna DNA Dionna species DNA Probe [id number] 913.2350 ([facility]) Gardnerella DNA Probe DETECTED (NOT DETECTED) H (High) Note: Increased levels of G. vaginalis m ay not be significantin the absence of signs and symptoms of bacterialvaginosis.Responsible Observer: Gardnerella DNA Gardnerella DNA Probe [id number] 913.2345 ([facility]) Trichomonas DNA Probe NOT DETECTED (NOT DETECTED) None Note: Responsible Observer: Trichomonas DNA Trichomonas DNA Probe 93224745 913.2340 ([facility]) NOTES See Note None Note: PICKARD:IN OTHER NAME IN MEDICAL RECORD Reviewed on 08/11/2020; All test result s are final unless otherwise noted. Reported Physicians [facility] Ordered by Cat Gutierrez RPA on 08/09/2020 Collected: 08/09/2020 Reported: 08/11/2020 06:52 Reported Physicians See Note None Note: Reported Physicians:Ordering: Atte nding: Rigo Gutierrez To: Maya Barron Reviewed on 08/11/2020; All test result s are final unless otherwise noted. ADD ON MICROSCOPIC [facility] Ordered by Cat Gutierrez RPA on 08/09/2020 Collected: 08/09/2020 Reported: 08/09/2020 12:23 ADD ON MICROSCOPIC See Note (0-5) H (High) Note: NOTES OTHER/NOT INTERPRETED Bacteria UrnS Ql Micro SMALL AMOUNT Bacteria UrnS Ql Micro SMALL AMOUNT Bacteria UrnS Ql Micro L Bacteria UrnS Ql Micro Bacteria UrnS Ql Micro Bacteria UrnS Ql Micro Bacteria UrnS Ql Micro [id number] Bacteria UrnS Ql Micro Bacteria UrnS Ql [...] Ql Micro Mucous Threads UrnS Ql Micro [id number] Mucous Threads UrnS Ql Micro Mucous Threads UrnS Ql Micro MODERATE AMOUNT WBC # Ur Manual 5-8 @08/09/20 1210: UA W/ MICRO added. RFLXG = UMIC.Method of Collection:: Clean CatchResponsible Observer: WBC WBC 300.5000 (A) Reviewed by Cat Gutierrez RPA on 08/12; All test results are final unless otherwise noted. Reported Physicians [facility] Ordered by Cat Gutierrez RPA on 08/09/2020 Collected: 08/09/2020 Reported: 08/10/2020 17:47 Reported Physicians See Note None Note: Reported Physicians:Ordering: Atte ndcristiane: Rigo Gutierrez To: Maya Barron Reviewed by Cat Gutierrez [facility] on 08/12; All test results are final unless otherwise noted. MEDMATCH [facility] Ordered by Cat Gutierrez [facility] on 08/09/2020 Collected: 08/09/2020 Reported: 08/13/2020 15:56 MEDMATCH See scanned report None Note: Responsible Observer: MEDMATCH MED MATCH 910.98877 ([facility]) Reviewed by Cat Gutierrez [facility] on 08/14; All test results are final unless otherwise noted. Reported Physicians [facility] Ordered by Cat Gutierrez [facility] on 08/09/2020 Collected: 08/09/2020 Reported: 08/13/2020 15:56 Reported Physicians See Note None Note: Reported Physicians:Ordering: Atte oralia: Rigo Gutierrez To: Maya Barron Reviewed by Cat Gutierrez [facility] on 08/14; All test results are final unless otherwise noted. URINALYSIS [facility] Ordered by Cat Gutierrez [facility] on 08/09/2020 Collected: 08/09/2020 Reported: 08/09/2020 12:23 Urobilinogen Ur Ql See Note (0.2-1 EU/dl) None Note: 1 EU/dl1 EU/[id number] EU/dlRe sponsible Observer: UROBILINOGEN UROBILINOGEN 300.4500 (C) RBC # Ur Strip NEGATIVE (NEGATIVE) None Note: Responsible Observer: BLOOD BLOOD 300.4650 (C) Prot Ur Ql Strip See Note (NEGATIVE) None Note: [id number] ble Observer: PROTEIN PROTEIN 300.3750 (C) Ketones Ur Ql Strip See Note (NEGATIVE) None Note: [id number] ble Observer: KETONE KETONE 300.3900 (C) Bilirub Ur Ql Strip.auto See Note (NEGATIVE) None Note: [id number] EResponsible Observer: BILIRUBIN BILIRUBIN 300.4550 (C) Glucose Ur Strip.auto-mCnc NEGATIVE (NEGATIVE) None Note: Responsible Observer: GLUCOSE GLUC OSE 300.3850 (C) Appearance Ur See Note (CLEAR) None Note: CLEARCLEARLCLEARResponsible Observ er: APPEARANCE APPEARANCE 300.3400 (A) Color Ur See Note None Note: DARK YELLOWDARK YELLOWLDARK YELLOW Responsible Observer: COLOR COLOR 300.3300 (A) Leukocyte esterase Ur Ql Strip See Note (NEGATIVE) None Note: [id number]@DO MICR O!!!!Responsible Observer: LEUKOCYTES LEUKOCYTES 300.3575 (C) Nitrite Ur Ql Strip See Note (NEGATIVE) None Note: [id number] EResponsible Observer: NITRITE NITRITE 300.3650 (B) pH [...] are final unless otherwise noted. Urine culture [facility] Ordered by Cat Gutierrez RPA on 08/09/2020 Collected: 08/09/2020 Reported: 08/10/2020 08:33 Bacteria Ur Cult See Note None Note: NGNo growth.L1NG Reviewed by Cat Gutierrez RPA on 08/14; All test results are final unless otherwise noted. Type and Screen [facility] Ordered by Cat Gutierrez RPA [...] are final unless otherwise noted. Reported Physicians [facility] Ordered by Cat Gutierrez RPA on 08/09/2020 Collected: 08/09/2020 Reported: 08/09/2020 12:39 Reported Physicians See Note None Note: Reported Physicians:Ordering: Cat ConwayAttending: Brenda, GaudencioanaCopy To: Maya Barron Reviewed by Cat Gutierrez RPA on 08/10; All test results are final unless otherwise noted. Varicella-Zoster IgG Antibody [facility] Ordered by Cat Gutierrez RPA on 08/09/2020 Collected: 08/09/2020 Reported: 08/10/2020 17:47 VZV IgG Ser [facility] 242.10 None Note: Index Interpr etation [...] Antibody Immunity Screen, ACIF.THIS TEST WAS PERFORMED AT:[facility] [address]FKKNVE ME RATI,MDResponsible Observer: VARICELLA IGG Varicella-Zoster IgG Antibody [id number] 631.0963 ([facility]) NOTES See Note None Note: Patient Street Address: [address] [place] [place] [address] [address] [place]: [place] Zip Code: [address] Reviewed by Cat Gutierrez RPA on 08/12; All test results are final unless otherwise noted. HCV RFX ТАТЬЯНА [facility] Ordered by Cat Gutierrez RPA on 08/09/2020 Collected: 08/09/2020 Reported: 08/10/2020 17:47 HCV Ab Ser Ql See Note (NON-REACTIVE) None Note: XWL-QXZSEZJQKGI-[id number] 7NON-REACTIVEResponsible Observer: HEP C ANTIBODY Hepatitis C Antibody 51528840 914.8305 ([facility]) HCV RNA Qualitative (ТАТЬЯНА) 0.54 (<1.00) None Note: HCV antibody was non-reactive. The re is no laboratoryevidence of HCV infection.In most cases, no further action is required. However,if recent HCV exposure is suspected, a test for HCV RNA(test code 99601) is suggested.For additional information please refer tohttp://education.Woppa/faq/CFP57p7(This link is being provided for informational/educational purposes only.)THIS TEST WAS PERFORMED AT:[facility] [id number] MEANS,MDResponsible Observer: SIG TO C/O SIGNAL TO CUTOFF [id number] 104.2661 ([facility]) NOTES See Note None Note: Patient Street Address: [address] [place] [address] [address] [place]: [place] [facility] Zip Code: [address] Reviewed by Cat Gutierrez RPA on 08/12; All test results are final unless otherwise noted. Reported Physicians [facility] Ordered by Cat Gutierrez RPA on 08/09/2020 Collected: 08/09/2020 Reported: 08/10/2020 17:47 Reported Physicians See Note None Note: Reported Physicians:Ordering: Atte nding: Rigo Gutierrez To: Maya Barron Reviewed by Cat Gutierrez RPA on 08/12; All test results are final unless otherwise noted. CBC [facility] Ordered by Cat Gutierrez RPA [...] Auto See Note (0-2) N (Normal) Note: 0.20.0F97649374081.2Responsible Ob cocktail server: IG% IG% 100.1375 (B) [...] results are final unless otherwise noted. TSH [facility] Ordered by Cat Gutierrez RPA on 08/09/2020 Collected: 08/09/2020 Reported: 08/09/2020 14:24 TSH SerPl DL<=0.005 mIU/L-aCnc 1.18 MicroInternationalUnitsPerMilliLiter_[Arbitrary_Con (0.35-5. 50) N (Normal) Note: Responsible Observer: TSH TSH 600 .7055 (D) Reviewed by Cat Gutierrez RPA on 08/14; All test results are final unless otherwise noted. Lead (Venous) Wh.Bld [facility] Ordered by Cat Gutierrez RPA on 08/09/2020 Collected: 08/09/2020 Reported: 08/10/2020 17:47 Lead Bld-sCnc <1 (<5) None Note: See Note 1Note 1This test was faith granados and its analytical performancecharacteristics have been determined by [employer]. It has not been cleared or approved by theA. This assay has been validated pursuant to the CLIAregulations and is used for clinical purposes.THIS TEST WAS PERFORMED AT:[facility] [address]PDLXTS MERATI,MDResponsible Observer: Lead, WB Lead, Whole Blood [id number] 911.2190 ([facility]) NOTES See Note None Note: Patient Street Address: [address] [place] [place] [address] [address] City: [place] [facility] Zip Code: [address] Reviewed by Cat Gutierrez RPA on 08/14; All test results are final unless otherwise noted. ncPN REF [facility] Ordered by Cat Gutierrez RPA on 08/09/2020 Collected: 08/09/2020 Reported: 08/13/2020 15:26 T pallidum Ab Ser Ql Aggl See Note (Nonreactive) None Note: [id number] onreactiveResponsible Observer: TP-PA Treponema pallidum Ab (TP-PA) [id number] 908.0286 ([facility]) HIV1 RNA SerPl Ql ТАТЬЯНА+probe See Note None Note: TNPNo Reportable ResultLTNPNo Repo rtable ResultLLEP.LIVENTNPResponsible Observer: HIV 1 RNA, QL T HIV 1 RNA, QL TMA [id number] 908.0254 ([facility]) HBV surface Ag SerPl Ql IA See Note (NON-REACTIVE) None Note: CLL-JSVYQZCWDDL-[id number] 5NON-REACTIVEResponsible Observer: HBSAG Hepatitis B Surface Antigen [id number] 910.2004 ([facility]) RUBV IgG SerPl IA-aCnc 1.76 None Note: Index Interpretatio n ----- <0.90 Not consistent with immunity 0.90-0.99 Equivocal > or = 1.00 Consistent with immunityThe presence of rubella IgG antibody suggestsimmunization or past or current infection withrubella virus.THIS TEST WAS PERFORMED AT:[facility] [address]SBVLOECLAUDY ONEILLesponsible Observer: Rubella IgG Ab Rubella IgG Ab [id number] 911.2840 ([facility]) HIV1 Ab SerPlBld Ql IA.rapid See Note None Note: TNPNo Reportable ResultLTNPNo Repo rtable ResultLLEP.LIVENTNPResponsible Observer: HIV 1 AB HIV 1 AB [id number] 908.0250 ([facility]) HBsAg Confirmation See Note None Note: TNPNo Reportable ResultLTNPNo Repo rtable ResultLLEP.LIVENTNPResponsible Observer: HBsAg Confirm HBsAg Confirmation [id number] 910.2006 ([facility]) HIV (1&2) Screen, 4th Gen NON-REACTIVE (NON-REACTIVE) [...] for this purpose.For additional information please refer tohttp://education.Fuel (fuelpowered.com).Socialware/faq/EFZ854(This link is being provided for informational/educational purposes only.)The performance of this assay has not been clinicallyvalidated in patients less than 2 years old.THIS TEST WAS PERFORMED AT:[facility] [address]WCEZWVCLAUDY ONEILLesponsible Observer: HIV ABS HIV (1&2) Screen, 4th Gen [id number] 908.0519 ([facility]) Reviewed by Cat Gutierrez RPA on 08/14; All test results are final unless otherwise noted. Reported Physicians [facility] Ordered by Cat Gutierrez RPA on 08/09/2020 Collected: 08/09/2020 Reported: 08/13/2020 15:27 Reported Physicians See Note None Note: Reported Physicians:Ordering: Atte ndcristiane: Cat GutierrezCopy To: Maya Barron Reviewed by Cat Gutierrez RPA on 08/14; All test results are final unless otherwise noted. BHCG, QUANTITATIVE [facility] Ordered by Cat Gutierrez RPA on 08/08/2020 Collected: 08/08/2020 Reported: 08/08/2020 11:53 B-HCG [facility] [address] MilliInternationalUnitsPerMilliLiter_[Arbitrary_Con (0-10) H (High) Note: @Instrument will [...] are final unless otherwise noted. Reported Physicians [facility] Ordered by Cat Gutierrez RPA on 08/08/2020 Collected: 08/08/2020 Reported: 08/08/2020 11:54 Reported Physicians See Note None Note: Reported Physicians:Ordering: Atte nding: Gaudencio GutierrezanaCopy To: Maya Barron Reviewed by Cat Gutierrez RPA on 08/08; All test results are final unless otherwise noted. Type and Screen [facility] Ordered by Cat Gutierrez RPA [...] are final unless otherwise noted. Reported Physicians [facility] Ordered by Cat Gutierrez RPA on 08/01/2020 Collected: 08/01/2020 Reported: 08/01/2020 06:03 Reported Physicians See Note None Note: Reported Physicians:Ordering: Cristino FerreiraAttending: Jos iRvas To: Maya Barron Reviewed by Cat Gutierrez RPA on 08/01; All test results are final unless otherwise noted. BHCG, QUANTITATIVE [facility] Ordered by Cat Gutierrez RPA on 08/01/2020 Collected: 08/01/2020 Reported: 08/01/2020 02:26 B-HCG [facility] [address] MilliInternationalUnitsPerMilliLiter_[Arbitrary_Con (0-10) H (High) Note: @Instrument will [...] are final unless otherwise noted. Reported Physicians [facility] Ordered by Cat Gutierrez RPA on 08/01/2020 Collected: 08/01/2020 Reported: 08/01/2020 02:26 Reported Physicians See Note None Note: Reported Physicians:Ordering: Aj Ferreiraending: Jos Rivas To: Maya Barron Reviewed by Cat Gutierrez RPA on 08/01; All test results are final unless otherwise noted. CBC W AUTO DIFF [facility] Ordered by Cat Gutierrez RPA [...] Auto See Note (0-2) N (Normal) Note: [id number] Ob cocktail server: IG% IG% 100.1375 (B) [...] are final unless otherwise noted. Reported Physicians [facility] Ordered by Cat Gutierrez RPA on 08/01/2020 Collected: 08/01/2020 Reported: 08/01/2020 02:26 Reported Physicians See Note None Note: Reported Physicians:Ordering: Aj Ferreiraending: Jos Rivas To: Maya Barron Reviewed by Cat Gutierrez RPA on 08/01; All test results are final unless otherwise noted. UA W/ CULTURE IF ABNORMAL [facility] Ordered by Cat Gutierrez RPA on 08/01/2020 Collected: 08/01/2020 Reported: 08/01/2020 01:01 Urobilinogen Ur Ql See Note (0.2-1 EU/dl) None Note: 0.2 EU/dl0.2 EU/[id number] E U/dlResponsible Observer: UROBILINOGEN UROBILINOGEN 300.4500 (C) RBC # Ur Strip SMALL (NEGATIVE) None Note: @DO MICRO!!!!Responsible Observer: BLOOD BLOOD 300.4652 (C) Prot Ur Ql Strip See Note (NEGATIVE) None Note: [id number] EResponsible Observer: PROTEIN PROTEIN 300.3750 (C) Ketones Ur Ql Strip See Note (NEGATIVE) None Note: 15 mg/dL15 mg/[id number] mg/d LResponsible Observer: KETONE KETONE 300.3900 (C) Bilirub Ur Ql Strip.auto See Note (NEGATIVE) None Note: [id number] EResponsible Observer: BILIRUBIN BILIRUBIN 300.4550 (C) Glucose Ur Strip.auto-mCnc NEGATIVE (NEGATIVE) None Note: Responsible Observer: GLUCOSE GLUC OSE 300.3850 (C) Appearance Ur See Note (CLEAR) None Note: CLEARCLEARLCLEARResponsible Observ er: APPEARANCE APPEARANCE 300.3400 (A) Color Ur See Note None Note: YELLOWYELLOWLYELLOWResponsible Obs erver: COLOR COLOR 300.3330 (A) Leukocyte esterase Ur Ql Strip See Note (NEGATIVE) None Note: [id number]@DO MICR O!!!!A Culture has been added to this specimen per established criteriaResponsible Observer: LEUKOCYTES LEUKOCYTES 300.3576 (C) Nitrite Ur Ql Strip See Note (NEGATIVE) None Note: [id number] EResponsible Observer: NITRITE NITRITE 300.3652 (B) pH [...] are final unless otherwise noted. Urine culture [facility] Ordered by Cat Gutierrez [facility] on 08/01/2020 Collected: 08/01/2020 Reported: 08/02/2020 07:41 Urine culture result See Note None Note: Greater than 100,000 CFU/MLLactoba cilli no senst done NOTES See Note None Note: @08/01/20 0101: Urine culture adde d. RFLXG = CULT.ADD. Reviewed by Cat Gutierrez [facility] on 08/02; All test results are final unless otherwise noted. Reported Physicians [facility] Ordered by Cat Gutierrez [facility] on 08/01/2020 Collected: 08/01/2020 Reported: 08/02/2020 07:41 Reported Physicians See Note None Note: Reported Physicians:Ordering: Cristino FerreiraAttending: Jos Rivas To: Maya Barron Reviewed by Cat Gutierrez [facility] on 08/02; All test results are final unless otherwise noted. ADD ON MICROSCOPIC [facility] Ordered by Cat Gutierrez [facility] on 08/01/2020 Collected: 08/01/2020 Reported: 08/01/2020 01:01 ADD ON MICROSCOPIC See Note (0-5) None Note: NOTES OTHER/NOT INTERPRETED Bacteria UrnS Ql Micro MODERATE AMOUNT Bacteria UrnS Ql Micro MODERATE AMOUNT Bacteria UrnS Ql Micro L Bacteria UrnS Ql Micro Bacteria UrnS Ql Micro Bacteria UrnS Ql Micro Bacteria UrnS Ql Micro [id number] Bacteria UrnS Ql Micro Bacteria UrnS Ql [...] are final unless otherwise noted. Reported Physicians [facility] Ordered by Cat Gutierrez RPA on 08/01/2020 Collected: 08/01/2020 Reported: 08/01/2020 01:01 Reported Physicians See Note None Note: Reported Physicians:Ordering: Aj Ferreiraending: Jos Rivas To: Maya Barron Reviewed by Cat Gutierrez RPA on 08/01; All test results are final unless otherwise noted. BHCG, QUANTITATIVE [facility] Ordered by Cat Gutierrez RPA on 07/31/2020 Collected: 07/31/2020 Reported: 07/31/2020 16:53 B-HCG [facility] [address] MilliInternationalUnitsPerMilliLiter_[Arbitrary_Con (0-10) H (High) Note: @Instrument will [...] are final unless otherwise noted. Reported Physicians [facility] Ordered by Cat Gutierrez RPA on 07/31/2020 Collected: 07/31/2020 Reported: 07/31/2020 16:53 Reported Physicians See Note None Note: Reported Physicians:Ordering: Atte nding: Cat Gutierrez Reviewed by Cat Gutierrez RPA on 08/01; All test results are final unless otherwise noted. UA W/ CULTURE IF ABNORMAL [facility] Ordered by Cat Gutierrez RPA on 07/27/2020 Collected: 07/27/2020 Reported: 07/27/2020 21:36 Urobilinogen Ur Ql See Note (0.2-1 EU/dl) None Note: 0.2 EU/dl0.2 EU/[id number] E U/dlResponsible Observer: UROBILINOGEN UROBILINOGEN 300.4500 (C) RBC # Ur Strip NEGATIVE (NEGATIVE) None Note: Responsible Observer: BLOOD BLOOD 300.4652 (C) Prot Ur Ql Strip See Note (NEGATIVE) None Note: [id number] EResponsible Observer: PROTEIN PROTEIN 300.3750 (C) Ketones Ur Ql Strip See Note (NEGATIVE) None Note: [id number] EResponsible Observer: KETONE KETONE 300.3900 (C) Bilirub Ur Ql Strip.auto See Note (NEGATIVE) None Note: [id number] EResponsible Observer: BILIRUBIN BILIRUBIN 300.4550 (C) Glucose Ur Strip.auto-mCnc NEGATIVE (NEGATIVE) None Note: Responsible Observer: GLUCOSE GLUC OSE 300.3850 (C) Appearance Ur See Note (CLEAR) None Note: CLEARCLEARLCLEARResponsible Observ er: APPEARANCE APPEARANCE 300.3400 (A) Color Ur See Note None Note: YELLOWYELLOWLYELLOWResponsible Obs erver: COLOR COLOR 300.3330 (A) Leukocyte esterase Ur Ql Strip See Note (NEGATIVE) None Note: [id number]@DO MICR O!!!!A Culture has been added to this specimen per established criteriaResponsible Observer: LEUKOCYTES LEUKOCYTES 300.3576 (C) Nitrite Ur Ql Strip See Note (NEGATIVE) None Note: [id number] EResponsible Observer: NITRITE NITRITE 300.3652 (B) pH [...] of Collection:: Voided Reviewed by Cat Gutierrez [facility] on 07/31; All test results are final unless otherwise noted. Urine culture [facility] Ordered by Cat Brenda [facility] on 07/27/2020 Collected: 07/27/2020 Reported: 07/29/2020 07:36 Urine culture result 50,000 CFU/ML Lactobacilli no senst done None NOTES See Note None Note: @07/27/207: Urine culture adde d. RFLXG = CULT.ADD. Reviewed by Cat Gutierrez [facility] on 07/31; All test results are final unless otherwise noted. Reported Physicians [facility] on 07/27/2020 Collected: 07/27/2020 Reported: 07/29/2020 07:37 Reported Physicians See Note None Note: Reported Physicians:Ordering: Daquan BustamanteAttending: Daquan GoodCopyifan To: Maya Barron Reviewed by Cat Brenda [facility] on 07/31; All test results are final unless otherwise noted. ADD ON MICROSCOPIC [facility] Or[facility] on 07/27/2020 Collected: 07/27/2020 Reported: 07/27/2020 21:36 ADD ON MICROSCOPIC See Note (0-5) None Note: NOTES OTHER/NOT INTERPRETED Bacteria UrnS Ql Micro SMALL AMOUNT Bacteria UrnS Ql Micro SMALL AMOUNT Bacteria UrnS Ql Micro L Bacteria UrnS Ql Micro Bacteria UrnS Ql Micro Bacteria UrnS Ql Micro Bacteria UrnS Ql Micro [id number] Bacteria UrnS Ql Micro Bacteria UrnS Ql [...] are final unless otherwise noted. Reported Physicians [facility] Ordered by Cat Gutierrez RPA on 07/27/2020 Collected: 07/27/2020 Reported: 07/27/2020 21:37 Reported Physicians See Note None Note: Reported Physicians:Ordering: Daquan BustamanteAttending: Daquan GoodCopy To: Maya Barron Reviewed by Cat Gutierrez RPA on 07/28; All test results are final unless otherwise noted. BHCG, QUANTITATIVE [facility] Ordered by Cat Gutierrez RPA on 07/27/2020 Collected: 07/27/2020 Reported: 07/27/2020 22:08 B-HCG [facility] [address] MilliInternationalUnitsPerMilliLiter_[Arbitrary_Con (0-10) H (High) Note: @Instrument [...] are final unless otherwise noted. Reported Physicians [facility] Ordered by Cat Gutierrez RPA on 07/27/2020 Collected: 07/27/2020 Reported: 07/27/2020 22:08 Reported Physicians See Note None Note: Reported Physicians:Ordering: Daquan BustamanteAttending: Daquan GoodCopy To: Maya Barron Reviewed by Cat Gutierrez RPA on 07/28; All test results are final unless otherwise noted. CMP [facility] Ordered by Cat Gutierrez RPA [...] are final unless otherwise noted. Reported Physicians [facility] Ordered by Cat Gutierrez RPA on 07/27/2020 Collected: 07/27/2020 Reported: 07/27/2020 20:37 Reported Physicians See Note None Note: Reported Physicians:Ordering: Daquan BustamanteAttending: Daquan GoodCopy To: Maya Barron Reviewed by Cat Gutierrez [facility] on 07/28; All test results are final unless otherwise noted. Type and Screen [facility] Ordered by Cat Gutierrez [facility] on 07/27/2020 Collected: 07/27/2020 Reported: [...] give date): N Reviewed by Cat Gutierrez [facility] on 07/28; All test results are final unless otherwise noted. Reported Physicians [facility] Ordered by Cat Gutierrez [facility] on 07/27/2020 Collected: 07/27/2020 Reported: 07/27/2020 20:48 Reported Physicians See Note None Note: Reported Physicians:Ordering: Daquan BustamanteAttending: Ariella Good To: Maya Barron Reviewed by Cat Gutierrez [facility] on 07/28; All test results are final unless otherwise noted. CBC W AUTO DIFF [facility] Ordered by Cat Gutierrez [facility] on 07/27/2020 Collected: 07/27/2020 Reported: [...] Auto See Note (0-2) N (Normal) Note: [id number] Ob cocktail server: IG% IG% 100.1375 (B) [...] are final unless otherwise noted. Reported Physicians [facility] Ordered by Cat Gutierrez RPA on 07/27/2020 Collected: 07/27/2020 Reported: 07/27/2020 20:11 Reported Physicians See Note None Note: Reported Physicians:Ordering: Daquan BustamanteAttending: Daquan GoodCopyifan To: Maya Barron Reviewed by Cat Gutierrez RPA on 07/28; All test results are final unless otherwise noted. BHCG, [facility] Ordered by Maya Barron MD on 07/26/2020 Collected: 07/26/2020 Reported: 07/26/2020 16:48 B-HCG [facility] [address] MilliInternationalUnitsPerMilliLiter_[Arbitrary_Con (0-10) H (High) Note: [...] are final unless otherwise noted. Reported Physicians [facility] Ordered by Maya Barron MD on 07/26/2020 Collected: 07/26/2020 Reported: 07/26/2020 16:48 Reported Physicians See Note None Note: Reported Physicians:Ordering: Maya AlvarengaAttending: Maya Barron Reviewed by Maya Barron MD on 07/27; All test results are final unless otherwise noted. Extended hours FLU/COV2 NAAT [facility] Ordered by Bandar Cleveland PA-C on 07/25/2020 Collected: 07/25/2020 Reported: 07/25/2020 18:47 Extended hours FLU/COV2 NAAT See Note None Note: TNPNo Reportable ResultLTNPNo Repo rtable ZifhnoS2BUM Reviewed by Bandar Cleveland PA-C on ; All test results are final unless otherwise noted. Reported Physicians [facility] Ordered by Bandar Cleveland PA-C on 07/25/2020 Collected: 07/25/2020 Reported: 07/25/2020 18:47 Reported Physicians See Note None Note: Reported Physicians:Ordering: Janice Wilsonending: Kami Cleveland To: Health, Public Reviewed by Bandar Cleveland PA-C on 1; All test results are final unless otherwise noted. Sweta Raquel SARS/FLU [facility] Ordered by Bandar Cleveland PA-C on 07/25/2020 Collected: 07/25/2020 Reported: 07/25/2020 18:47 Sweta Raquel SARS/FLU See Note None Note: Sweta Raquel is a rapid, automated q ualitative anddifferentiation of Influenza type A,B and VXSV-XRU-4SZYX-RT-PCR testNORMAL VALUE IS "NOT DETECTED".Limitations of the sweta raquel Influenza A/B & ZPXM-KXF-0ljebg method.Modifications to manufacturers recommendation and proceduresmay alter performance of the test.Negative results do not preclude Influenza A,B or SARS- REN8eeqsjpusmc and should not be used as the [...] out diseases caused by other bacterialor viral pathogens.50324-4TMSW-BoH-5 RNA Resp Ql ТАТЬЯНА+probeLNNOSNo O rganisms [id number] Organisms Detected Reviewed by Bandar Cleveland PA-C on 1; All test results are final unless otherwise noted. Reported Physicians [facility] Ordered by Bandar Cleveland PA-C on 07/25/2020 Collected: 07/25/2020 Reported: 07/25/2020 18:47 Reported Physicians See Note None Note: Reported Physicians:Ordering: Janice Wilsonending: Kami Cleveland To: Health, Public Reviewed by Bandar Cleveland PA-C on 1; All test results are final unless otherwise noted. CBC W AUTO DIFF [facility] Ordered by Maya Barron MD [...] Auto See Note (0-2) N (Normal) Note: 0.30.4P95305952082.3Responsible Ob cocktail server: IG% IG% 100.1375 (B) [...] test results are final unless otherwise noted. [facility] Ordered by Maya Barron [...] are final unless otherwise noted. Reported Physicians [facility] Ordered by Maya Barron MD on 07/22/2020 Collected: 07/22/2020 Reported: 07/22/2020 02:00 Reported Physicians See Note None Note: Reported Physicians:Ordering: Hong LandaverdeAttending: Alon Douglas To: Maya Barron Reviewed by Maya Barron MD on 07/24; All test results are final unless otherwise noted. Extended hours FLU/COV2 NAAT [facility] Ordered by Maya Barron MD on 07/22/2020 Collected: 07/22/2020 Reported: 07/22/2020 01:29 Extended hours FLU/COV2 NAAT See Note None Note: TNPNo Reportable ResultLTNPNo Repo rtable SmdfyvL1GWM Reviewed by Maya Barron MD on 07/24; All test results are final unless otherwise noted. Reported Physicians [facility] Ordered by Maya Barron MD on 07/22/2020 Collected: 07/22/2020 Reported: 07/22/2020 01:29 Reported Physicians See Note None Note: Reported Physicians:Ordering: Hong LandaverdeAttending: Alon Douglas To: Maya Barron Reviewed by Maya Barron MD on 07/24; All test results are final unless otherwise noted. Sweta Raquel SARS/FLU [facility] Ordered by Maya Barron MD on 07/22/2020 Collected: 07/22/2020 Reported: 07/22/2020 01:29 Sweta Raquel SARS/FLU See Note None Note: Sweta Raquel is a rapid, automated q ualitative anddifferentiation of Influenza type A,B and BPYP-XHZ-0VVJD-RT-PCR testNORMAL VALUE IS "NOT DETECTED".Limitations of the sweta raquel Influenza A/B & FFVR-ZUN-2cwgai method.Modifications to manufacturers recommendation and proceduresmay alter performance of the test.Negative results do not preclude Influenza A,B or SARS- BQO9lztwmrljyu and should not be used as the [...] out diseases caused by other bacterialor viral pathogens.33709-2RUGP-FnN-9 RNA Resp Ql ТАТЬЯНА+probeLNNOSNo O rganisms [id number] Organisms Detected Reviewed by Maya Barron MD on 07/24; All test results are final unless otherwise noted. Reported Physicians [facility] Ordered by Maya Barron MD on 07/22/2020 Collected: 07/22/2020 Reported: 07/22/2020 01:29 Reported Physicians See Note None Note: Reported Physicians:Ordering: Dominic Landaverdeending: Alon Douglas To: Maya Barron Reviewed by Maya Barron MD on 07/24; All test results are final unless otherwise noted. UA W/ CULTURE IF ABNORMAL [facility] Ordered by Maya Barron MD on 07/22/2020 Collected: 07/22/2020 Reported: 07/22/2020 01:10 Urobilinogen Ur Ql See Note (0.2-1 EU/dl) None Note: 0.2 EU/dl0.2 EU/seI94499744330.2 E U/dlResponsible Observer: UROBILINOGEN UROBILINOGEN 300.4500 (C) RBC # Ur Strip NEGATIVE (NEGATIVE) None Note: Responsible Observer: BLOOD BLOOD 300.4652 (C) Prot Ur Ql Strip See Note (NEGATIVE) None Note: [id number] EResponsible Observer: PROTEIN PROTEIN 300.3750 (C) Ketones Ur Ql Strip See Note (NEGATIVE) None Note: [id number] EResponsible Observer: KETONE KETONE 300.3900 (C) Bilirub Ur Ql Strip.auto See Note (NEGATIVE) None Note: [id number] EResponsible Observer: BILIRUBIN BILIRUBIN 300.4550 (C) Glucose Ur Strip.auto-mCnc NEGATIVE (NEGATIVE) None Note: Responsible Observer: GLUCOSE GLUC OSE 300.3850 (C) Appearance Ur See Note (CLEAR) None Note: CLEARCLEARLCLEARResponsible Observ er: APPEARANCE APPEARANCE 300.3400 (A) Color Ur See Note None Note: YELLOWYELLOWLYELLOWResponsible Obs erver: COLOR COLOR 300.3330 (A) Leukocyte esterase Ur Ql Strip See Note (NEGATIVE) None Note: [id number] EResponsible Observer: LEUKOCYTES LEUKOCYTES 300.3576 (C) Nitrite Ur Ql Strip See Note (NEGATIVE) None Note: [id number] EResponsible Observer: NITRITE NITRITE 300.3652 (B) pH [...] are final unless otherwise noted. Reported Physicians [facility] Ordered by Maya Barron MD on 07/22/2020 Collected: 07/22/2020 Reported: 07/22/2020 01:11 Reported Physicians See Note None Note: Reported Physicians:Ordering: Dominic Landaverdeending: Alon Douglas To: Maya Barron Reviewed by Maya Barron MD on 07/24; All test results are final unless otherwise noted. Urine culture [facility] Ordered by Maya Barron MD on 07/19/2020 Collected: 07/19/2020 Reported: 07/21/2020 07:48 Bacteria Ur Cult See Note None Note: NGNo growth.L1NG Reviewed by Maya Barron MD on 07/21; All test results are final unless otherwise noted. Reported Physicians [facility] Ordered by Maya Barron MD on 07/19/2020 Collected: 07/19/2020 Reported: 07/21/2020 07:49 Reported Physicians See Note None Note: Reported Physicians:Ordering: Cara Alvarengaending: Maya Barron Reviewed by Maya Barron MD on 07/21; All test results are final unless otherwise noted. BHCG, QUANTITATIVE [facility] Ordered by Maya Barron MD [...] are final unless otherwise noted. Reported Physicians [facility] Ordered by Maya Barron MD on 07/17/2020 Collected: 07/17/2020 Reported: 07/17/2020 12:40 Reported Physicians See Note None Note: Reported Physicians:Ordering: Cara Alvarengaending: Maya Barron Reviewed by Maya Barron MD on 07/17; All test results are final unless otherwise noted. CUEVAS COVID-19 SCHOOL [facility] Ordered by Maya Barron MD [...] molecular test, if the virus mutates in [facility], Covid-19 may not be detected or may bedetected less predictably.ID NOW COVID-19 is intended for testing a swab directlywithout elution in viral transport media as dilution willresult in decreased detection of low positive samples thatare near the limit of detection of the test.SWAB SAMPLES ELUTED IN VTM ARE NOT APPROPRIATE FOR USE INTHIS TEST.NOSNo Organisms [id number] Organisms Detected Reviewed by Maya Barron MD on 05/31; All test results are final unless otherwise noted. Reported Physicians [facility] Ordered by Maya Barron MD on 05/31/2020 Collected: 05/31/2020 Reported: 05/31/2020 07:08 Reported Physicians See Note None Note: Reported Physicians:Ordering: Johnny Hernándezending: Suzanne Cazares To: Maya Barron Reviewed by Maya Barron MD on 05/31; All test results are final unless otherwise noted. BHCG, QUANTITATIVE [facility] Ordered by Maya Barron MD on 05/26/2020 Collected: 05/26/2020 Reported: 05/26/2020 14:49 B-HCG SerPl-aCnc 82753 MilliInternationalUnitsPerMilliLiter_[Arbitrary_Con (0-10) H (High) Note: @Instrument will [...] are final unless otherwise noted. Reported Physicians [facility] Ordered by Maya Barron MD on 05/26/2020 Collected: 05/26/2020 Reported: 05/26/2020 14:50 Reported Physicians See Note None Note: Reported Physicians:Ordering: Cara Alvarengaending: Maya Barron Reviewed by Maya Barron MD on 05/26; All test results are final unless otherwise noted. URINALYSIS [facility] Ordered by Maya Barron MD on 05/23/2020 Collected: 05/23/2020 Reported: 05/23/2020 17:19 Urobilinogen Ur Ql See Note (0.2-1 EU/dl) None Note: 0.2 EU/dl0.2 EU/[id number] E U/dlResponsible Observer: UROBILINOGEN UROBILINOGEN 300.4500 (C) RBC # Ur Strip NEGATIVE (NEGATIVE) None Note: Responsible Observer: BLOOD BLOOD 300.4650 (C) Prot Ur Ql Strip See Note (NEGATIVE) None Note: [id number] EResponsible Observer: PROTEIN PROTEIN 300.3750 (C) Ketones Ur Ql Strip See Note (NEGATIVE) None Note: [id number] EResponsible Observer: KETONE KETONE 300.3900 (C) Bilirub Ur Ql Strip.auto See Note (NEGATIVE) None Note: [id number] EResponsible Observer: BILIRUBIN BILIRUBIN 300.4550 (C) Glucose Ur Strip.auto-mCnc NEGATIVE (NEGATIVE) None Note: Responsible Observer: GLUCOSE GLUC OSE 300.3850 (C) Appearance Ur See Note (CLEAR) None Note: CLEARCLEARLCLEARResponsible Observ er: APPEARANCE APPEARANCE 300.3400 (A) Color Ur See Note None Note: YELLOWYELLOWLYELLOWResponsible Obs erver: COLOR COLOR 300.3300 (A) Leukocyte esterase Ur Ql Strip See Note (NEGATIVE) None Note: [id number] EResponsible Observer: LEUKOCYTES LEUKOCYTES 300.3575 (C) Nitrite Ur Ql Strip See Note (NEGATIVE) None Note: [id number] EResponsible Observer: NITRITE NITRITE 300.3650 (B) pH [...] are final unless otherwise noted. Urine culture [facility] Ordered by Maya Barron MD on 05/23/2020 Collected: 05/23/2020 Reported: 05/24/2020 09:24 Bacteria Ur Cult See Note None Note: NGNo growth.L1NG Reviewed by Maya Barron MD on 05/29; All test results are final unless otherwise noted. MEDMATCH [facility] Ordered by Maya Barron MD on 05/23/2020 Collected: 05/23/2020 Reported: 05/26/2020 17:09 MEDMATCH 1.000 (> or = 1.003) None Note: Responsible Observer: MEDMATCH MED MATCH 910.34130 ([facility]) Reviewed by Maya Barron MD on 05/29; All test results are final unless otherwise noted. Reported Physicians [facility] Ordered by Maya Barron MD on 05/23/2020 Collected: 05/23/2020 Reported: 05/26/2020 17:09 Reported Physicians See Note None Note: Reported Physicians:Ordering: Maya AlvarengaAttending: Maya Barron Reviewed by Maya Barron MD on 05/29; All test results are final unless otherwise noted. Varicella-Zoster IgG Antibody [facility] Ordered by Maya [...] Antibody Immunity Screen, ACIF.THIS TEST WAS PERFORMED AT:[facility] [id number] ME RATI,MDResponsible Observer: VARICELLA IGG Varicella-Zoster IgG Antibody [id number] 942.5490 ([facility]) NOTES See Note None Note: Patient Street Address: [facility] [address]: [place] [facility] Zip Code: [address] Reviewed by Maya Barron MD on 05/26; All test results are final unless otherwise noted. Reported Physicians [facility] Ordered by Maya Barron MD on 05/23/2020 Collected: 05/23/2020 Reported: 05/25/2020 17:11 Reported Physicians See Note None Note: Reported Physicians:Ordering: Maya AlvarengaAttending: Maya Barron Reviewed by Maya Barron MD on 05/26; All test results are final unless otherwise noted. CBC [facility] Ordered by Maya Barron MD [...] Auto See Note (0-2) N (Normal) Note: [id number] Ob cocktail server: IG% IG% 100.1375 (B) [...] results are final unless otherwise noted. TSH [facility] Ordered by Maya Barron MD on 05/23/2020 Collected: 05/23/2020 Reported: 05/23/2020 18:38 TSH SerPl DL<=0.005 mIU/L-aCnc 1.87 MicroInternationalUnitsPerMilliLiter_[Arbitrary_Con (0.35-5. 50) N (Normal) Note: Responsible Observer: TSH TSH 600 .7055 (D) Reviewed by Maya Barron MD on 05/29; All test results are final unless otherwise noted. Lead (Venous) Wh.Bld [facility] Ordered by Maya Barron MD on 05/23/2020 Collected: 05/23/2020 Reported: 05/25/2020 17:11 Lead Bld-sCnc <1 (<5) None Note: See Note 1Note 1This test was faith gran[facility] and its analytical performancecharacteristics have been determined by [employer]. It has not been cleared or approved by theA. This assay has been validated pursuant to the CLIAregulations and is used for clinical purposes.THIS TEST WAS PERFORMED AT:[facility] [id number] MERATI,MDResponsible Observer: Lead, WB Lead, Whole Blood [id number] 911.4930 ([facility]) NOTES See Note None Note: Patient Street Address: [facility] [address]Patient City: [place]: [address] Reviewed by Maya Barron MD on 05/29; All test results are final unless otherwise noted. ncPN REF [facility] Ordered by Maya Barron MD on 05/23/2020 Collected: 05/23/2020 Reported: 05/27/2020 20:54 T pallidum Ab Ser Ql Aggl See Note (Nonreactive) None Note: [id number] onreactiveResponsible Observer: TP-PA Treponema pallidum Ab (TP-PA) [id number] 908.0286 ([facility]) HIV1 RNA SerPl Ql ТАТЬЯНА+probe See Note None Note: TNPNo Reportable ResultLTNPNo Repo rtable ResultLLEP.LIVENTNPResponsible Observer: HIV 1 RNA, QL T HIV 1 RNA, QL TMA [id number] 908.0254 ([facility]) HBV surface Ag SerPl Ql IA See Note (NON-REACTIVE) None Note: PEZ-MUHBUYVNVGR-[id number] 0NON-REACTIVEResponsible Observer: HBSAG Hepatitis B Surface Antigen [id number] 0.2004 ([facility]) RUBV IgG SerPl IA-aCnc 1.80 None Note: Index Interpretatio n ----- <0.90 Not consistent with Immunity 0.90-0.99 Equivocal > or = 1.00 Consistent with ImmunityThe presence of rubella IgG antibody suggestsimmunization or past or current infection withrubella virus.THIS TEST WAS PERFORMED AT:[facility] [address]YYLNHNCLAUDY ONEILLesponsible Observer: Rubella IgG Ab Rubella IgG Ab [id number] 911.2840 ([facility]) HIV1 Ab SerPlBld Ql IA.rapid See Note None Note: TNPNo Reportable ResultLTNPNo Repo rtable ResultLLEP.LIVENTNPResponsible Observer: HIV 1 AB HIV 1 AB [id number] 908.0250 ([facility]) HBsAg Confirmation See Note None Note: TNPNo Reportable ResultLTNPNo Repo rtable ResultLLEP.LIVENTNPResponsible Observer: HBsAg Confirm HBsAg Confirmation [id number] 910.2006 ([facility]) HIV (1&2) Screen, 4th Gen [...] for this purpose.For additional information please refer tohttp://education.Fuel (fuelpowered.com).Socialware/faq/DTK820(This link is being provided for informational/educational purposes only.)The performance of this assay has not been clinicallyvalidated in patients less than 2 years old.Responsible Observer: HIV ABS HIV (1&2) Screen, 4th Gen [id number] 908.0228 ([facility]) Reviewed by Maya Barron MD on 05/29; All test results are final unless otherwise noted. Reported Physicians [facility] Ordered by Maya Barron MD on 05/23/2020 Collected: 05/23/2020 Reported: 05/27/2020 20:54 Reported Physicians See Note None Note: Reported Physicians:Ordering: Maya AlvarengaAttending: Maya Barron Reviewed by Maya Barron MD on 05/29; All test results are final unless otherwise noted. HCV RFX ТАТЬЯНА [facility] Ordered by Maya Barron MD on 05/23/2020 Collected: 05/23/2020 Reported: 05/25/2020 17:11 HCV Ab Ser Ql See Note (NON-REACTIVE) None Note: [id number] 7NON-REACTIVEResponsible Observer: HEP C ANTIBODY Hepatitis C Antibody 35123005 914.8305 ([facility]) HCV RNA Qualitative (ТАТЬЯНА) 0.59 (<1.00) None Note: HCV antibody was non-reactive. The re is no laboratoryevidence of HCV infection.In most cases, no further action is required. However,if recent HCV exposure is suspected, a test for HCV RNA(test code 75915) is suggested.For additional information please refer tohttp://education.Fuel (fuelpowered.com).Socialware/faq/KNW03g6(This link is being provided for informational/educational purposes only.)THIS TEST WAS PERFORMED AT:[facility] [address]CLAUDY ONEILLesponsible Observer: SIG TO C/O SIGNAL TO CUTOFF [id number] 914.8335 ([facility]) NOTES See Note None Note: Patient Street Address: [facility] [address] City: [place] [address] Reviewed by Maya Barron MD on 05/26; All test results are final unless otherwise noted. Reported Physicians [facility] Ordered by Maya Barron MD on 05/23/2020 Collected: 05/23/2020 Reported: 05/25/2020 17:11 Reported Physicians See Note None Note: Reported Physicians:Ordering: Maya AlvarengaAttending: Maya Barron Reviewed by Maya Barron MD on 05/26; All test results are final unless otherwise noted. Type and Screen [facility] Ordered by Maya Barron MD [...] are final unless otherwise noted. Reported Physicians [facility] Ordered by Maya Barron MD on 05/23/2020 Collected: 05/23/2020 Reported: 05/23/2020 19:32 Reported Physicians See Note None Note: Reported Physicians:Ordering: Maya AlvarengaAttending: Maya Barron Reviewed by Maya Barron MD on 05/24; All test results are final unless otherwise noted. PROGESTERONE [facility] Ordered by Maya Barron MD [...] are final unless otherwise noted. Reported Physicians [facility] Ordered by Maya Barron MD on 04/27/2020 Collected: 04/27/2020 Reported: 04/27/2020 15:58 Reported Physicians See Note None Note: Reported Physicians:Ordering: Johnny HernándezAttending: Jos Castellanos To: Rubén Barron To: Cristino Castellanos Reviewed by Maya Barron MD on 04/30; All test results are final unless otherwise noted. BHCG, QUANTITATIVE [facility] Ordered by Maya Barron MD [...] are final unless otherwise noted. Reported Physicians [facility] Ordered by Maya Barron MD on 04/27/2020 Collected: 04/27/2020 Reported: 04/27/2020 14:40 Reported Physicians See Note None Note: Reported Physicians:Ordering: Cristino SnowAttending: Jos Castellanos To: Suzanne Cazares To: Maya Barron Reviewed by Maya Barron MD on 04/30; All test results are final unless otherwise noted. CBC W AUTO DIFF [facility] Ordered by Maya Barron MD [...] Auto See Note (0-2) N (Normal) Note: [id number] Ob cocktail server: IG% IG% 100.1375 (B) [...] are final unless otherwise noted. Reported Physicians [facility] Ordered by Maya Barron MD on 04/25/2020 Collected: 04/25/2020 Reported: 04/25/2020 22:11 Reported Physicians See Note None Note: Reported Physicians:Ordering: Aj Ferreiraending: Jos Rivas To: Maya Barron Reviewed by Maya Barron MD on 04/26; All test results are final unless otherwise noted. BHCG, QUANTITATIVE [facility] Ordered by Maya Barron MD [...] are final unless otherwise noted. Reported Physicians [facility] Ordered by Maya Barron MD on 04/25/2020 Collected: 04/25/2020 Reported: 04/25/2020 22:11 Reported Physicians See Note None Note: Reported Physicians:Ordering: Aj Ferreiraending: Jos Rivas To: Maya Barron Reviewed by Maya Barron MD on 04/26; All test results are final unless otherwise noted. Urine culture [facility] Ordered by Maya Barron MD on 04/25/2020 Collected: 04/25/2020 Reported: 04/27/2020 04:50 Bacteria Ur Cult See Note None Note: NGNo growth.L1NG NOTES See Note None Note: @ NICOLE DATE was changed from 04/26 to 04/25/20@ by POMCY. Reviewed by Maya Barron MD on 04/30; All test results are final unless otherwise noted. Reported Physicians [facility] Ordered by Maya Barron MD on 04/25/2020 Collected: 04/25/2020 Reported: 04/27/2020 04:51 Reported Physicians See Note None Note: Reported Physicians:Ordering: Aj Ferreiraending: Jos Rivas To: Maya Barron Reviewed by Maya Barron MD on 04/30; All test results are final unless otherwise noted. ADD ON MICROSCOPIC [facility] Ordered by Maya Barron MD on 04/25/2020 Collected: 04/25/2020 Reported: 04/25/2020 21:54 ADD ON MICROSCOPIC See Note (0-5) None Note: NOTES OTHER/NOT INTERPRETED Bacteria UrnS Ql Micro SMALL AMOUNT Bacteria UrnS Ql Micro SMALL AMOUNT Bacteria UrnS Ql Micro L Bacteria UrnS Ql Micro Bacteria UrnS Ql Micro Bacteria UrnS Ql Micro Bacteria UrnS Ql Micro [id number] Bacteria UrnS Ql Micro Bacteria UrnS Ql [...] are final unless otherwise noted. Reported Physicians [facility] Ordered by Maya Barron MD on 04/25/2020 Collected: 04/25/2020 Reported: 04/25/2020 21:54 Reported Physicians See Note None Note: Reported Physicians:Ordering: Aj Ferreiraending: Jos Rivas To: Maya Barron Reviewed by Maya Barron MD on 04/26; All test results are final unless otherwise noted. URINALYSIS [facility] Ordered by Maya Barron MD on 04/25/2020 Collected: 04/25/2020 Reported: 04/25/2020 21:54 Urobilinogen Ur Ql See Note (0.2-1 EU/dl) None Note: 0.2 EU/dl0.2 EU/cpV31585292791.2 E U/dlResponsible Observer: UROBILINOGEN UROBILINOGEN 300.4500 (C) RBC # Ur Strip NEGATIVE (NEGATIVE) None Note: Responsible Observer: BLOOD BLOOD 300.4650 (C) Prot Ur Ql Strip See Note (NEGATIVE) None Note: [id number] EResponsible Observer: PROTEIN PROTEIN 300.3750 (C) Ketones Ur Ql Strip See Note (NEGATIVE) None Note: [id number] EResponsible Observer: KETONE KETONE 300.3900 (C) Bilirub Ur Ql Strip.auto See Note (NEGATIVE) None Note: [id number] EResponsible Observer: BILIRUBIN BILIRUBIN 300.4550 (C) Glucose Ur Strip.auto-mCnc NEGATIVE (NEGATIVE) None Note: Responsible Observer: GLUCOSE GLUC OSE 300.3850 (C) Appearance Ur See Note (CLEAR) None Note: CLEARCLEARLCLEARResponsible Observ er: APPEARANCE APPEARANCE 300.3400 (A) Color Ur See Note None Note: YELLOWYELLOWLYELLOWResponsible Obs erver: COLOR COLOR 300.3300 (A) Leukocyte esterase Ur Ql Strip See Note (NEGATIVE) None Note: [id number]@DO MICR O!!!!Responsible Observer: LEUKOCYTES LEUKOCYTES 300.3575 (C) Nitrite Ur Ql Strip See Note (NEGATIVE) None Note: [id number] EResponsible Observer: NITRITE NITRITE 300.3650 (B) pH [...] are final unless otherwise noted. Reported Physicians [facility] Ordered by Maya Barron MD on 04/25/2020 Collected: 04/25/2020 Reported: 04/25/2020 21:54 Reported Physicians See Note None Note: Reported Physicians:Ordering: Cristino FerreiraAttending: Jos Rivas To: Maya Barron Reviewed by Maya Barron MD on 04/26; All test results are final unless otherwise noted. BHCG, QUANTITATIVE [facility] Ordered by Maya Barron MD [...] are final unless otherwise noted. Reported Physicians [facility] Ordered by Maya Barron MD on 04/18/2020 Collected: 04/18/2020 Reported: 04/18/2020 15:11 Reported Physicians See Note None Note: Reported Physicians:Ordering: Maya AlvarengaAttending: Maya Barron Reviewed by Maya Barron MD on 04/19; All test results are final unless otherwise noted. ADD ON MICROSCOPIC [facility] Ordered by Maya Barron MD on 04/16/2020 Collected: 04/16/2020 Reported: 04/16/2020 23:51 ADD ON MICROSCOPIC See Note (0-5) None Note: NOTES OTHER/NOT INTERPRETED Bacteria UrnS Ql Micro SMALL AMOUNT Bacteria UrnS Ql Micro SMALL AMOUNT Bacteria UrnS Ql Micro L Bacteria UrnS Ql Micro Bacteria UrnS Ql Micro Bacteria UrnS Ql Micro Bacteria UrnS Ql Micro [id number] Bacteria UrnS Ql Micro Bacteria UrnS Ql [...] are final unless otherwise noted. Reported Physicians [facility] Ordered by Maya Barron MD on 04/16/2020 Collected: 04/16/2020 Reported: 04/16/2020 23:52 Reported Physicians See Note None Note: Reported Physicians:Ordering: Damon VinodAttending: Damon, VinodCopy To: Maya Barron Reviewed by Maya Barron MD on 04/17; All test results are final unless otherwise noted. UA W/ CULTURE IF ABNORMAL [facility] Ordered by Maya Barron MD on 04/16/2020 Collected: 04/16/2020 Reported: 04/16/2020 23:51 Urobilinogen Ur Ql See Note (0.2-1 EU/dl) None Note: 0.2 EU/dl0.2 EU/[id number] E U/dlResponsible Observer: UROBILINOGEN UROBILINOGEN 300.4500 (C) RBC # Ur Strip NEGATIVE (NEGATIVE) None Note: Responsible Observer: BLOOD BLOOD 300.4652 (C) Prot Ur Ql Strip See Note (NEGATIVE) None Note: [id number] EResponsible Observer: PROTEIN PROTEIN 300.3750 (C) Ketones Ur Ql Strip See Note (NEGATIVE) None Note: [id number] ble Observer: KETONE KETONE 300.3900 (C) Bilirub Ur Ql Strip.auto See Note (NEGATIVE) None Note: [id number] EResponsible Observer: BILIRUBIN BILIRUBIN 300.4550 (C) Glucose Ur Strip.auto-mCnc NEGATIVE (NEGATIVE) None Note: Responsible Observer: GLUCOSE GLUC OSE 300.3850 (C) Appearance Ur See Note (CLEAR) None Note: CLEARCLEARLCLEARResponsible Observ er: APPEARANCE APPEARANCE 300.3400 (A) Color Ur See Note None Note: YELLOWYELLOWLYELLOWResponsible Obs erver: COLOR COLOR 300.3330 (A) Leukocyte esterase Ur Ql Strip See Note (NEGATIVE) None Note: [id number] E@DO MICRO!!!!A Culture has been added to this specimen per established criteriaResponsible Observer: LEUKOCYTES LEUKOCYTES 300.3576 (C) Nitrite Ur Ql Strip See Note (NEGATIVE) None Note: [id number] EResponsible Observer: NITRITE NITRITE 300.3652 (B) pH [...] are final unless otherwise noted. Urine culture [facility] Ordered by Maya Barron MD on 04/16/2020 Collected: 04/16/2020 Reported: 04/18/2020 06:47 Urine culture result See Note None Note: Less than 10,000 CFU/MLNormal Comm ensal FloraProbable contaminants no senst done NOTES See Note None Note: @04/16/201: Urine culture adde d. RFLXG = CULT.ADD. Reviewed by Maya Barron MD on 04/18; All test results are final unless otherwise noted. Reported Physicians [facility] Ordered by Maya Barron MD on 04/16/2020 Collected: 04/16/2020 Reported: 04/18/2020 06:47 Reported Physicians See Note None Note: Reported Physicians:Ordering: Damon , VinodAttending: Damon, VinodCopy To: Maya Barron Reviewed by Maya Barron MD on 04/18; All test results are final unless otherwise noted. CBC W AUTO DIFF [facility] Ordered by Maya Barron MD [...] Auto See Note (0-2) N (Normal) Note: 0.20.9Q69970161954.2Responsible Ob cocktail server: IG% IG% 100.1375 (B) [...] test results are final unless otherwise noted. [facility] Ordered by Maya Barron MD on [...] are final unless otherwise noted. Reported Physicians [facility] Ordered by Maya Barron MD on 04/16/2020 Collected: 04/16/2020 Reported: 04/16/2020 22:47 Reported Physicians See Note None Note: Reported Physicians:Ordering: Randy Joseending: Jose E JoseodManny To: Maya Barron Reviewed by Maya Barron MD on 04/17; All test results are final unless otherwise noted. CMP [facility] Ordered by Maya Barron MD [...] are final unless otherwise noted. Reported Physicians [facility] Ordered by Maya Barron MD on 04/16/2020 Collected: 04/16/2020 Reported: 04/16/2020 22:44 Reported Physicians See Note None Note: Reported Physicians:Ordering: Romel Josettending: Mat JoseCopyifan To: Maya Barron Reviewed by Maya Barron MD on 04/17; All test results are final unless otherwise noted. LIPASE [facility] Ordered by Maya Barron MD on 04/16/2020 Collected: 04/16/2020 Reported: 04/16/2020 22:44 Lipase SerPl-cCnc 107 enzyme_unit_per_liter (73-393) N (Normal) Note: Responsible Observer: Lipase Lipas e 400.2310 (G) Reviewed by Maya Barron MD on 04/17; All test results are final unless otherwise noted. Reported Physicians [facility] Ordered by Maya Barron MD on 04/16/2020 Collected: 04/16/2020 Reported: 04/16/2020 22:44 Reported Physicians See Note None Note: Reported Physicians:Ordering: Romel Josettending: Jose E JoseodCopyifan To: Maya Barron Reviewed by Maya Barron MD on 04/17; All test results are final unless otherwise noted. Type and Screen [facility] Ordered by Maya Barron MD [...] are final unless otherwise noted. Reported Physicians [facility] Ordered by Maya Barron MD on 04/16/2020 Collected: 04/16/2020 Reported: 04/16/2020 23:09 Reported Physicians See Note None Note: Reported Physicians:Ordering: Damon VinodAttending: Damon VinodCopy To: Maya Barron Reviewed by Maya Barron MD on 04/17; All test results are final unless otherwise noted. [facility] Ordered by Maya Barron MD on 04/10/2020 [address] [place], [address] Collected: 04/10/2020 Reported: 04/11/2020 11:35 tel : [...] test results are final unless otherwise noted. [facility] Ordered by Maya Barron MD on 04/10/[address] [place] [address], [id number] Collected: 04/10/2020 Reported: 04/11/2020 11:35 tel : [...] Ordered by Maya Barron MD on 04/10/2020 [address] [place], [address] Collected: 04/10/2020 Reported: 04/11/2020 11:35 tel :[phone] ext. [phone] TSH 1.336 uIu/mL (0.5-5.8) None Note: Responsible Observer: AW Reviewed by Maya Barron MD on 04/12; All test results are final unless otherwise noted. -[facility] Ordered by Maya Barron MD on 02/25/2020 Collected: 02/25/2020 Reported: 02/28/2020 15:53 C trach rRNA XXX Ql ТАТЬЯНА+probe See Note (NOT DETECTED) None Note: NOT DETECTEDNOT DETECTEDLNOT DETEC TEDNOT [id number] DETECTEDResponsible Observer: C.Trach RNA Chlamydia trachomatis DNA-ТАТЬЯНА [id number] 913.9900 ([employer]) N gonorrhoea rRNA XXX Ql ТАТЬЯНА+probe See Note (NOT DETECTED) None Note: NOT DETECTEDNOT DETECTEDLNOT DETEC TEDNOT [id number] DETECTEDResponsible Observer: GC RNA Neisseria gonorrhoeae DNA -ТАТЬЯНА [id number] 913.9905 (QUEST) Chlamydia/GC DNA Note SEE NOTE None Note: The analytical performance charact eristics of thisassay, when used to test SurePath(TM) specimens have beendetermined by [facility]. The modifications havenot been cleared or approved by the FDA. This assay hasbeen validated pursuant to the CLIA regulations and isused for clinical purposes.For additional information, please refer tohttps://education.Fuel (fuelpowered.com).Socialware/faq/QVK329(This link is being provided for information/educational purposes only.)THIS TEST WAS PERFORMED AT:[facility] [address]CLAUDY ONEILLesponsible Observer: GC/Chlam Note Chlamydia/GC DNA Note [id number] 913.9907 (A) NOTES See Note None Note: Source Of Specimen: URINE Reviewed by Maya Barron MD on 02/28; All test results are final unless otherwise noted. Reported Physicians [facility] Ordered by Maya Barron MD on 02/25/2020 Collected: 02/25/2020 Reported: 02/28/2020 15:54 Reported Physicians See Note None Note: Reported Physicians:Ordering: Cara Alvarengaending: Maya Barron Reviewed by Maya Barron MD on 02/28; All test results are final unless otherwise noted. Urine culture-[facility] Ordered by Maya Barron MD on 02/25/2020 Collected: 02/25/2020 Reported: 02/26/2020 13:38 Urine culture result No growth None Reviewed by Maya Barron MD on 02/27; All test results are final unless otherwise noted. Reported Physicians [facility] Ordered by Maya Barron MD on 02/25/2020 Collected: 02/25/2020 Reported: 02/26/2020 13:39 Reported Physicians See Note None Note: Reported Physicians:Ordering: Maya AlvarengaAttending: Maya Barron Reviewed by Maya Barron MD on 02/27; All test results are final unless otherwise noted. Test Office Lab Ordered by Maya Barron MD on 02/25/2020 [address] [place], [address] Specimen Source: Urine Collected: 02/25/2020 Reporte d: 02/25/2020 11:15 tel:[phone] Urine HCG neg (negative) N (Normal) Reviewed by Maya Barron MD on 02/24; All test results are final unless otherwise noted. Urinalysis w/out microscopy Office Lab Ordered by Maya Barron MD on 02/25/2020 [address] [place], [address] Specimen Source: Urine Collected: 02/25/2020 Reporte d: 02/25/2020 11:02 tel:[phone] bilirubin neg (neg) N (Normal) blood neg [...] otherwise noted. UA W/ CULTURE IF ABNORMAL [facility] Ordered by Maya Barron MD on 01/29/2020 Collected: 01/29/2020 Reported: 01/29/2020 00:22 Urobilinogen Ur Ql See Note (0.2-1 EU/dl) None Note: 1 EU/dl1 EU/dlL1 EU/dl1 EU/myM1619 [id number] EU/dlResponsible Observer: UROBILINOGEN UROBILINOGEN 300.4500 (C) RBC # Ur Strip NEGATIVE (NEGATIVE) None Note: Responsible Observer: BLOOD BLOOD 300.4652 (C) Prot Ur Ql Strip See Note (NEGATIVE) None Note: NEGATIVENEGATIVELNEGATIVENEGATIVEL [id number] Observer: PROTEIN PROTEIN 300.3750 (C) Ketones Ur Ql Strip See Note (NEGATIVE) None Note: 15 mg/dL15 mg/dLL15 mg/dL15 mg/dLL 046612731368 mg/dLResponsible Observer: KETONE KETONE 300.3900 (C) Bilirub Ur Ql Strip.auto See Note (NEGATIVE) None Note: NEGATIVENEGATIVELNEGATIVENEGATIVEL [id number] Observer: BILIRUBIN BILIRUBIN 300.4550 (C) Glucose Ur Strip.auto-mCnc NEGATIVE (NEGATIVE) None Note: Responsible Observer: GLUCOSE GLUC OSE 300.3850 (C) Appearance Ur See Note (CLEAR) None Note: CLEARCLEARLCLEARCLEARLCLEARRespons ible Observer: APPEARANCE APPEARANCE 300.3400 (A) Color Ur See Note None Note: YELLOWYELLOWLYELLOWYELLOWLYELLOWRe sponsible Observer: COLOR COLOR 300.3330 (A) Leukocyte esterase Ur Ql Strip See Note (NEGATIVE) None Note: NEGATIVENEGATIVELNEGATIVENEGATIVEL [id number] Observer: LEUKOCYTES LEUKOCYTES 300.3576 (C) Nitrite Ur Ql Strip See Note (NEGATIVE) None Note: NEGATIVENEGATIVELNEGATIVENEGATIVEL 0164256119NHMHZVCPWbrjuqdvcje Observer: NITRITE NITRITE 300.3652 (B) pH Ur [...] are final unless otherwise noted. Reported Physicians [facility] Ordered by Maya Barron MD on 01/29/2020 Collected: 01/29/2020 Reported: 01/29/2020 00:22 Reported Physicians See Note None Note: Reported Physicians:Ordering: Yoli NapolesAttending: Charles Silva To: Maya Barron Reviewed by Maya Barron MD on 01/30; All test results are final unless otherwise noted. BHCG,SERUM QUALITATIVE [facility] Ordered by Maya Barron MD [...] are final unless otherwise noted. Reported Physicians [facility] Ordered by Maya Barron MD on 01/28/2020 Collected: 01/28/2020 Reported: 01/28/2020 22:58 Reported Physicians See Note None Note: Reported Physicians:Ordering: Yoli NapolesAttending: Charles Silva To: Maya Barron Reviewed by Maya Barron MD on 01/30; All test results are final unless otherwise noted. CBC W AUTO DIFF [facility] Ordered by Maya Barron MD [...] Auto See Note (0-2) N (Normal) Note: 0.30.3L0.30.2W19088196093.3Respons ible Observer: IG% IG% 100.1375 (B) Hct [...] are final unless otherwise noted. Reported Physicians [facility] Ordered by Maya Barron MD on 01/28/2020 Collected: 01/28/2020 Reported: 01/28/2020 23:00 Reported Physicians See Note None Note: Reported Physicians:Ordering: Cliff Napolesending: Charles Silva To: Maya Barron Reviewed by Maya Barron MD on 01/30; All test results are final unless otherwise noted. UA W/ CULTURE IF ABNORMAL [facility] Ordered by Maya Barron MD on 12/12/2019 Collected: 12/12/2019 Reported: 12/12/2019 11:22 Urobilinogen Ur Ql See Note (0.2-1 EU/dl) None Note: 1 EU/dl1 EU/dlL1 EU/dl1 EU/tuG9464 9909298 EU/dlResponsible Observer: UROBILINOGEN UROBILINOGEN 300.4500 (C) RBC # Ur Strip NEGATIVE (NEGATIVE) None Note: Responsible Observer: BLOOD BLOOD 300.4652 (C) Prot Ur Ql Strip See Note (NEGATIVE) None Note: NEGATIVENEGATIVELNEGATIVENEGATIVEL [id number] Observer: PROTEIN PROTEIN 300.3750 (C) Ketones Ur Ql Strip See Note (NEGATIVE) None Note: 15 mg/dL15 mg/dLL15 mg/dL15 mg/dLL 614338170869 mg/dLResponsible Observer: KETONE KETONE 300.3900 (C) Bilirub Ur Ql Strip.auto See Note (NEGATIVE) None Note: NEGATIVENEGATIVELNEGATIVENEGATIVEL [id number] Observer: BILIRUBIN BILIRUBIN 300.4550 (C) Glucose Ur Strip.auto-mCnc NEGATIVE (NEGATIVE) None Note: Responsible Observer: GLUCOSE GLUC OSE 300.3850 (C) Appearance Ur See Note (CLEAR) A (Abnormal) Note: CLOUDYCLOUDYLCLOUDYCLOUDYLCLOUDYRe sponsible Observer: APPEARANCE APPEARANCE 300.3400 (A) Color Ur See Note None Note: YELLOWYELLOWLYELLOWYELLOWLYELLOWRe sponsible Observer: COLOR COLOR 300.3330 (A) Leukocyte esterase Ur Ql Strip See Note (NEGATIVE) None Note: NEGATIVENEGATIVELNEGATIVENEGATIVEL 0669927905SOYITLGZOanhmvgyujm Observer: LEUKOCYTES LEUKOCYTES 300.3576 (C) Nitrite Ur Ql Strip See Note (NEGATIVE) None Note: NEGATIVENEGATIVELNEGATIVENEGATIVEL 7897905482KVNALLBUVaqyeffwgse Observer: NITRITE NITRITE 300.3652 (B) pH Ur [...] are final unless otherwise noted. Reported Physicians [facility] Ordered by Maya Barrno MD on 12/12/2019 Collected: 12/12/2019 Reported: 12/12/2019 11:23 Reported Physicians See Note None Note: Reported Physicians:Ordering: Maya AlvarengaAttending: Maya Barron Reviewed by Maya Barron MD on 12/12; All test results are final unless otherwise noted. CBC W AUTO DIFF [facility] Ordered by Maya Barron MD [...] Auto See Note (0-2) N (Normal) Note: 0.30.3L0.30.8V09292865738.3Respons ible Observer: IG% IG% 100.1375 (B) Hct [...] are final unless otherwise noted. Reported Physicians [facility] Ordered by Maya Barron MD on 12/12/2019 Collected: 12/12/2019 Reported: 12/12/2019 11:58 Reported Physicians See Note None Note: Reported Physicians:Ordering: Maya AlvarengaAttending: Maya Barron Reviewed by Maya Barron MD on 12/12; All test results are final unless otherwise noted. Gastrointestinal Panel PCR [facility] Ordered by Maya Barron MD [...] OTHER EXPERTS. (E.G. GUIDELINES/POLICYSTATEMENTS PUBLISHED BY THE [place] [employer]OR THE SOCIETY FOR HEALTHCARE EPIDEMIOLOGY OF [place] ANDTHE INFECTIOUS DISEASE SOCIETY OF [place]).CLOC. difficile toxin [id number]. difficile toxin detected Reviewed by Maya Barron MD on 12/12; All test results are final unless otherwise noted. Reported Physicians [facility] Ordered by Maya Barron MD on 12/12/2019 Collected: 12/12/2019 Reported: 12/12/2019 14:17 Reported Physicians See Note None Note: Reported Physicians:Ordering: Maya AlvarengaAttending: Maya Barron Reviewed by Maya Barron MD on 12/12; All test results are final unless otherwise noted. CBC W AUTO DIFF [facility] Ordered by Maya Barron MD [...] Auto See Note (0-2) N (Normal) Note: 0.00.0L0.00.8E30004115216.0Respons ible Observer: IG% IG% 100.1375 (B) Hct [...] unless otherwise noted. Prothrombin Time & INR [facility] Ordered by Maya Barron MD [...] are final unless otherwise noted. Reported Physicians [facility] Ordered by Maya Barron MD on 12/07/2019 Collected: 12/07/2019 Reported: 12/07/2019 17:21 Reported Physicians See Note None Note: Reported Physicians:Ordering: Aj Snowending: Jos Castellanos To: Maya Barron Reviewed by Maya Barron MD on 12/09; All test results are final unless otherwise noted. Urinalysis w/out microscopy Office Lab Ordered by Maya Barron MD on 11/22/[address] [place] [address], [phone] Specimen Source: Urine Collected: 11/22/2019 Reporte d: [...] results are final unless otherwise noted. TROPONIN [facility] Ordered by Maya Barron MD on 11/19/2019 Collected: 11/19/2019 Reported: 11/19/2019 10:30 Troponin I SerPl-mCnc Less Than 0.015 (0.00-0.09) N (Normal) Note: Less than 0.09 NG/ML Negative 0.10 - 0.77 NG/ML High Risk0.78 NG/ML or Greater PositiveThe WHO defined the cutoff (definition for diagnosis of [place])for this method as 0.78 ng/ml.Responsible Observer: Troponin I Troponin I 600.1101 (G) Reviewed by Maya Barron MD on 11/18; All test results are final unless otherwise noted. Reported Physicians [facility] Ordered by Maya Barron MD on 11/19/2019 Collected: 11/19/2019 Reported: 11/19/2019 10:30 Reported Physicians See Note None Note: Reported Physicians:Ordering: Oscar Del Cidending: Vandana Burrows To: Maya Barron Reviewed by Maya Barron MD on 11/18; All test results are final unless otherwise noted. CBC W AUTO DIFF [facility] Ordered by Maya Barron MD [...] Auto See Note (0-2) N (Normal) Note: [id number] ible Observer: IG% IG% 100.1375 (B) Hct [...] are final unless otherwise noted. BHCG,SERUM QUALITATIVE [facility] Ordered by Maya Barron MD on 11/19/2019 Collected: 11/19/2019 Reported: 11/19/2019 09:58 HCG SerPl-sCnc NEGATIVE (NEGATIVE) None Note: @Reenter manual test result: NEG@b y Tariq Henry at 11/19/19 0958.Responsible Observer: [facility] SER[facility] BHCG SERUM 800.0900 (A) NOTES See [...] are final unless otherwise noted. Reported Physicians [facility] Ordered by Maya Barron MD on 11/19/2019 Collected: 11/19/2019 Reported: 11/19/2019 10:08 Reported Physicians See Note None Note: Reported Physicians:Ordering: Oscar Del Cidending: Vandana Burrows To: Maya Barron Reviewed by Maya Barron MD on 11/18; All test results are final unless otherwise noted. [facility] Ordered by Maya Barron MD on 11/15/[address] [place] [address], [address] Collected: 11/15/2019 Reported: 11/16/2019 13:40 tel : [...] test results are final unless otherwise noted. [facility] Ordered by Maya Barron MD on 11/15/[address] [place] [address], [address] Collected: 11/15/2019 Reported: 11/16/2019 13:40 tel : [...] Ordered by Maya Barron MD on 11/15/[address] [place] [address], [address] Collected: 11/15/2019 Reported: 11/16/2019 13:40 tel : ext. [phone] TSH 2.257 uIu/mL (0.5-5.8) None Note: Responsible Observer: AW Reviewed by Maya Barron MD on 11/15; All test results are final unless otherwise noted. BHCG, QUANTITATIVE [facility] Ordered by Maya Barron MD [...] are final unless otherwise noted. Reported Physicians [facility] Ordered by Maya Barron MD on 11/15/2019 Collected: 11/15/2019 Reported: 11/15/2019 15:27 Reported Physicians See Note None Note: Reported Physicians:Ordering: Maya AlvarengaAttending: Maya Barron Reviewed by Maya Barron MD on 11/14; All test results are final unless otherwise noted. Urinalysis w/out microscopy Office Lab Ordered by Maya Barron MD on [address] [place] [address], [phone] Specimen Source: Urine Collected: Reported: 2020 11:41 tel:[phone] bilirubin NEGATIVE (neg) N (Normal) blood NEGATIVE [...] Ordered by Maya Barron MD on 12/27/[address] [place] [address], [address] Specimen Source: Urine Collected: Reported: 2019 13:46 tel:[phone] Urine HCG negative (negative) N (Normal) Reviewed [...] Procedures and Surgical History Includes: Procedures from 11/08/2019 through 11/07/2020 Procedures Code Diagnosis Performing Provider Service Location Service Date REVISIT- office visit [facility] 18 weeks gestatio n of Maya Barron MD [facility] 10/31/2020 REVISIT- office visit [facility]LEIGH 17 weeks gestatio n of Maya Barron MD [facility], [facility] 10/24/2020 REVISIT- office visit [facility]LEIGH 16 weeks gestatio n of Maya Barron MD [facility], [facility] 10/17/2020 Holter Monitor, Physician review & interpretation only 75526 Palpitations Michel Villalba MD [facility] 10/11/2020 REVISIT- office visit K[facility]LEIGH 15 weeks gestatio n of Maya Barron MD [facility], [facility] 10/11/2020 REVISIT- office visit K[facility]LEIGH 13 weeks gestatio n of Maya Barron MD [facility], [facility] 09/27/2020 REVISIT- office visit KAYLEIGH 12 weeks gestatio n of Maya Barron MD [facility], [facility] 09/19/2020 EKG- Electrocardiogram/12 lead 02342 Chest pain, unspe cified Cat Gutierrez [facility], [facility] 09/11/2020 REVISIT- office visit K[facility]LEIGH 10 weeks gestatio n of Cat Gutierrez [facility], [facility] 09/05/2020 REVISIT- office visit KAYLEIGH 8 weeks gestation of Maya Barron MD [facility], [facility] 08/22/2020 Urinalysis w/o Microscopy (Distinct Seperate service-same da y) 96356 Frequency of micturition- Urinary Frequency Maya Barron MD [facility], [facility] 08/15/2020 RAPID STREP 59903 Acute pharyngitis, unspecified Maya Barron MD [facility], [facility] 08/15/2020 Initial Obstetrical Care Office Visit OB Le ss than 8 weeks gestation of Cat Gutierrez [facility], [facility] 021 Urinalysis w/o Microscopy 48558 Frequency of micturiti on- Urinary Frequency Maya Barron MD [facility], [facility] 07/19/2020 REVISIT- office visit [facility] Threatened Alicja Barron MD [facility], [facility] 05/26/2020 NO CHARGE- Nurse visit- OB establish [employer] Thr eatened , state, incidental Maya Barron MD [facility], [facility] 020 Brief Emotional Behavior Assessment ( add -59 mod) 74912 Screening for Mental Health/Behavioral Disorder, Unspecified Maya [facility] MD [facility], [facility] 04/10/2020 Venipuncture (routine) 68209 Dysmenorrhea, unspecified Mariela Barron MD [facility], [facility] 04/10/2020 General Health Panel( CMP, CBC, TSH) 39060 Dysmenorrhe a, unspecified Maya Barron MD [facility], [facility] 04/10/2020 Urine Test 20893 Pelvic and perineal pain, Frequency of micturition- Urinary Frequency Maya Barron MD [facility], [facility] 02/25/2020 Urinalysis w/o Microscopy 05042 Frequency of micturiti on- Urinary Frequency Maya Barron MD [facility], [facility] 02/25/2020 Urine Test 93508 Amenorrhea, unspecified Maya Barron MD [facility], [facility] 12/27/2019 Urinalysis w/o Microscopy 93556 Right upper quadrant pain Trinity Barron MD [facility], [facility] 11/22/2019 General Health Panel( CMP, CBC, TSH) 63876 Other fatigue Alicja Barron MD [facility], [facility] 11/15/2019 Venipuncture (routine) 21564 Other fatigue Maya Barron MD [facility], [facility] 11/15/2019 Surgical History Last Updated No [...] 12:00AM Act laya Encounters Includes: Encounters from 11/08/2019 through 11/07/2020 Encounter Provider Location Date Check-In Time Check-Out Time D iagnosis REVISIT- Routine (OB) Visit Maya [facility], [facility] 11/07/2020 11:42AM 11/03/2020 11:59PM OB- ILL VISIT Maya Barron MD [facility], [facility] 11/03/2020 3:45PM 4:29PM , Generalized Anxie ty Disorder, Panic Disorder, Chest Pain Chronic Care Mgt - Office Visit Maya Barron MD [facility], [facility] 11/03/2020 2:37PM 3:38PM Chronic Care Mgt - Office Visit Maya Barron MD [facility], [facility] 10/31/2020 3:23PM 3:24PM Fracture of Fift h Cervical Vertebral Body, History of Psychiatric Disorders, Reactive Airway Disease REVISIT- Routine (OB) Visit Maya Barron MD [facility], [facility] 10/31/2020 9:54AM 10:24AM Chronic Care Mgt - Office Visit Maya Barron MD [facility], [facility] 10/24/2020 2:16PM 11:59PM REVISIT- Routine (OB) Visit Maya Barron MD [facility], [facility] 10/24/2020 10:00AM 10:47AM REVISIT- Routine (OB) Visit Maya Barron MD [facility], [facility] 10/17/2020 11:24AM 12:12PM Chronic Care Mgt - Office Visit Maya Barron MD [facility], [facility] 10/17/2020 11:25AM 12:11PM Fracture of Fift h Cervical Vertebral Body, History of Psychiatric Disorders, Reactive Airway Disease REVISIT- Routine (OB) Visit Maya Barron MD [facility], [facility] 10/11/2020 9:44AM 10:15AM OB- ILL VISIT Maya Barron MD [facility] 10/04/2020 2:12PM 2:31PM Presyncope Syndrome, Tachyca rdia, Palpitations, Difficulty Breathing (Dyspnea), Weeks of Gestation - 14 REVISIT- Routine (OB) Visit Maya Barron MD [facility], [facility] 09/27/2020 1:36PM 1:59PM telephone conversation Michel Villalba MD 09/19/2020 9:43PM 09/19/2020 11:59PM Atypical Chest Pain REVISIT- Routine (OB) Visit Maya Barron MD [facility], [facility] 09/19/2020 9:48AM 10:14AM REVISIT- Routine (OB) Visit Cat Gutierrez [facility], [facility] 09/11/2020 3:22PM 4:16PM REVISIT- Routine (OB) Visit Cat Gutierrez [facility], [facility] 09/05/2020 9:37AM 10:00AM TCMNV phone call- NO CHARGE Cat Gutierrez [facility] 09/04/2020 09/05/2020 4:54PM 09/05/2020 11:59PM [Patient Encounter] Cat Gutierrez [facility] 08/31/2020 021 2:21PM 08/22/2020 11:59PM telephone conversation Michel Villalba MD 08/2808/22/2020 11:00AM 08/22/2020 11:59PM REVISIT- Routine (OB) Visit Maya Barron MD [facility], [facility] 08/22/2020 1:56PM 2:19PM sick visit Maya Barron MD [facility], [facility] 0 08/15/2020 9:36AM 10:12AM Upper Respiratory Infection Acute, Pollakiuria Obstetrics/ first visit Cat Gutierrez [facility], [facility] 08/09/2020 9:22AM 10:56AM followup Cat Gutierrez [facility], [facility] 0 08/02/2020 10:18AM 11:42AM Generalized Anxiety Disorder , Early Stage, Abdominal Pain telephone conversation Michel Villalba MD 1 07/26/2020 7:59AM 07/26/2020 11:59PM [Patient Encounter] Cat Gutierrez RPA 07/28/2020 021 2:20PM 07/26/2020 11:59PM [facility]up [facility] 0 07/26/2020 10:39AM 11:02AM , Generalized Anxie ty Disorder sick visit Bandar Cleveland [facility] 3:36PM 4:30PM Pyrexia followup [facility] 0 07/19/2020 10:52AM 11:30AM , Generalized Anxie ty Disorder, Pollakiuria followup [facility]ron [facility] 1 09/11/2019 10:43AM 11:14AM Atypical Chest Pain, Adjustm ent Disorder followup [facility] 1 08/07/2019 10:43AM 10:59AM Missed followup [facility] 05/26 1:45PM 2:11PM with Threatened Problem visit - not contagious Maya [facility]ron [facility] 05/24/2020 11:13AM 12:00PM with T hreatened [Patient Encounter] Maya Barron MD 05/24/2020 020 10:17AM 04/19/2020 11:59PM followup [facility] 1 11:51AM 12:08PM ANNUAL PE-followup [facility] 04/10/2020 8:42AM 9:13AM Routine History and Physical Adult (18 - 64 Yrs), Dysmenorrhea sick visit [facility] 0 03/06/2020 3:32PM 3:42PM Sinusitis sick visit [facility] 0 02/25/2020 10:46AM 11:12AM Pollakiuria, Female Pelvic P ain followup [facility] 01/31 2:25PM 2:51PM Back Strain followup [facility] 12/26 1:25PM 1:42PM Amenorrhea, Clostridium Difficile sick visit [facility] 0 12/07/2019 4:00PM 4:17PM Abdominal Pain sick visit [facility] 0 11/22/2019 3:13PM 3:37PM Esophageal Reflux, Abdominal Pain, Generalized Anxiety Disorder sick visit [facility] 0 11/15/2019 12:50PM 1:20PM Fatigue, Nausea, Presyncope Syndrome, Generalized Anxiety Disorder Insurance Includes: Active Insurance Policies Plan Name Member ID Group # Subscriber Relationship Effective [facility] 1 - MANAGED MEDICAID [facility] [id number] Georgiana Nguyen 2020 - Unknown Advance Directives Includes: Current Advance DirectivesNo Advance Directives Recorded Health Concerns Includes: Active Health ConcernsNo Active Health Concerns Recorded Goals Includes: Active GoalsNo Active Goals Recorded Interventions Includes: Interventions for active GoalsNo Interventions Recorded Evaluations & Outcomes Includes: Evaluations & Outcomes for active GoalsNo Outcomes Recorded
--- OUTSIDE RECORDS SUMMARY | 2021-04-29 17:05 | CCD ---
Author Author [facility] Organization [facility] Address [address] [place] [address] Phone Care Team Providers Care Building Rigger Name Role Phone Anderson GILL, Maya Duke PP [phone] Christopher BLANCHARD, Kimberly Prajapati Unavailable Unavailable Reason [...] Provider REVISIT- Routine (OB) Visit 11/07/2020 11:45AM [facility] Maya Barron MD Findings Encounter Date [...] or concerns sick visit with Cat Gutierrez [facility] 10/30/2018 Assessments Includes: Assessments for [...] 08/02/2020 Generalized anxiety disorder followup with Cat Ford PA 08/02/2020 Generalized anxiety disorder >50% of en [...] provided today. Advised reaching out to social work associate for assistance with access to food and [...] history and physical (18 - 63 yrs) [employer] care [facility] on health maintenance. 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 - 63 yrs) [facility] [facility] [place] [Encounter for general adult medical examination with abnormal findings] ANNUAL PE-followup exam/30 with Maya Barron MD 04/07/2019 Vaginal candidiasis sick visit with Cat Gutierrez [facility] 02/11 Pharyngitis urgent visit with Bandar Cleveland PA-C 2018 Sprained ribs ; left sick visit with Cat Gutierrez RPA Strain of muscle and tendon of front wall of thorax si ck visit with Cat Gutierrez RPA 10/30/2018 Fracture of fifth cervical vertebral body No Fault with Wanda Huston [facility] 03/04/2018 Late effects of accident No Fault with [facility] 0 03/04/2018 Instructions Instructions not [...] Results Includes: Results from 11/04/2019 through 11/03/2020 [facility] Ordered by Maya Barron MD on 10/23/2020 Collected: 10/23/2020 Reported: 10/23/2020 01:21 B-HCG [facility] [address] MilliInternationalUnitsPerMilliLiter_[Arbitrary_Con (0-10) H (High) Note: @Instrument will autodiluteAPPROXI MATE GESTATION AGE APRROXIMATE HCG RANGE 0-1 WEEK 0 - 50 1-2 WEEKS 40 - 300 2-3 WEEKS 100 - 1,000 3-4 WEEKS 500 - 6,000 1-2 MONTHS 5,000 - 200,000 2-3 MONTHS 10,000 - 100,000 2ND TRIMESTER 3,000 - 50,000 3RD TRIMESTER 1,000 - 50,000Responsible [place] [facility] [place] [facility] [place] 600.5006 (G) Reviewed by Maya Barron MD on 10/23; All test results are final unless otherwise noted. Reported Physicians [facility] Ordered by Maya Barron MD on 10/23/2020 Collected: 10/23/2020 Reported: 10/23/2020 01:21 Reported Physicians See Note None Note: Reported Physicians:Ordering: Yoli NapolesAttending: Charles Silva To: Maya Barron Reviewed by Maya Barron MD on 10/23; All test results are final unless otherwise noted. CBC W AUTO DIFF [facility] Ordered by Maya Barron [...] Auto See Note (0-2) N (Normal) Note: [id number] Ob counter server: IG% IG% 100.1375 (B) [...] test results are final unless otherwise noted. [facility] Ordered by Maya Barron MD [...] results are final unless otherwise noted. D-DIMER [facility] Ordered by Maya Barron [...] are final unless otherwise noted. Reported Physicians [facility] Ordered by Maya Barron MD on 10/23/2020 Collected: 10/23/2020 Reported: 10/23/2020 01:22 Reported Physicians See Note None Note: Reported Physicians:Ordering: Yoli NapolesAttending: Charles Silva To: Maya Barron Reviewed by Maya Barron MD on 10/23; All test results are final unless otherwise noted. TROPONIN [facility] Ordered by Maya Barron [...] are final unless otherwise noted. Reported Physicians [facility] Ordered by Maya Barron MD on 10/23/2020 Collected: 10/23/2020 Reported: 10/23/2020 01:03 Reported Physicians See Note None Note: Reported Physicians:Ordering: Yoli NapolesAttending: Charles Silva To: Maya Barron Reviewed by Maya Barron MD on 10/23; All test results are final unless otherwise noted. FREE T4 (LAB) [facility] Ordered by Maya Barron MD on 10/21/2020 Collected: 10/21/2020 Reported: 10/21/2020 15:17 T4 Free SerPl-mCnc 0.97 NanoGramsPerDeciLiter_[Mass_Concentration_Units] (0.89-1.76) N (Normal) Note: Responsible Observer: FREE T4 Free Thyroxine 600.7005 (D) Reviewed by Maya Barron MD on 10/23; All test results are final unless otherwise noted. Reported Physicians [facility] Ordered by Maya Barron MD on 10/21/2020 Collected: 10/21/2020 Reported: 10/21/2020 15:17 Reported Physicians See Note None Note: Reported Physicians:Ordering: Tramaine KuarothyAttending: Pardo TimothyCopy To: Maya Barron Reviewed by Maya Barron MD on 10/23; All test results are final unless otherwise noted. TSH [facility] Ordered by Maya Barron MD on 10/21/2020 Collected: 10/21/2020 Reported: 10/21/2020 15:17 TSH SerPl DL<=0.005 mIU/L-aCnc 1.40 MicroInternationalUnitsPerMilliLiter_[Arbitrary_Con (0.35-5. 50) N (Normal) Note: Responsible Observer: TSH TSH 600 .7055 (D) Reviewed by Maya Barron MD on 10/23; All test results are final unless otherwise noted. Reported Physicians [facility] Ordered by Maya Barron MD on 10/21/2020 Collected: 10/21/2020 Reported: 10/21/2020 15:17 Reported Physicians See Note None Note: Reported Physicians:Ordering: Talisha is, TimothyAttending: Tramaine PardoothyCopy To: Maya Barron Reviewed by Maya Barron MD on 10/23; All test results are final unless otherwise noted. UA W/ CULTURE IF ABNORMAL [facility] Ordered by Maya Barron MD on 10/19/2020 Collected: 10/19/2020 Reported: 10/19/2020 16:31 Urobilinogen Ur Ql See Note (0.2-1 EU/dl) None Note: 0.2 EU/dl0.2 EU/[id number] E U/dlResponsible Observer: UROBILINOGEN UROBILINOGEN 300.4500 (C) RBC # Ur Strip NEGATIVE (NEGATIVE) None Note: Responsible Observer: BLOOD BLOOD 300.4652 (C) Prot Ur Ql Strip See Note (NEGATIVE) None Note: [id number] EResponsible Observer: PROTEIN PROTEIN 300.3750 (C) Ketones Ur Ql Strip See Note (NEGATIVE) None Note: [id number] EResponsible Observer: KETONE KETONE 300.3900 (C) Bilirub Ur Ql Strip.auto See Note (NEGATIVE) None Note: [id number] EResponsible Observer: BILIRUBIN BILIRUBIN 300.4550 (C) Glucose Ur Strip.auto-mCnc 100 mg/dl (NEGATIVE) None Note: Responsible Observer: GLUCOSE GLUC OSE 300.3850 (C) Appearance Ur See Note (CLEAR) None Note: CLEARCLEARLCLEARResponsible Observ er: APPEARANCE APPEARANCE 300.3400 (A) Color Ur See Note None Note: YELLOWYELLOWLYELLOWResponsible Obs erver: COLOR COLOR 300.3330 (A) Leukocyte esterase Ur Ql Strip See Note (NEGATIVE) None Note: [id number] EResponsible Observer: LEUKOCYTES LEUKOCYTES 300.3576 (C) Nitrite Ur Ql Strip See Note (NEGATIVE) None Note: [id number] EResponsible Observer: NITRITE NITRITE 300.3652 (B) pH [...] are final unless otherwise noted. Reported Physicians [facility] Ordered by Maya Barron MD on 10/19/2020 Collected: 10/19/2020 Reported: 10/19/2020 16:31 Reported Physicians See Note None Note: Reported Physicians:Ordering: Les Vanegas AAttending: Fady Raza To: Maya Barron Reviewed by Maya Barron MD on 10/20; All test results are final unless otherwise noted. URINE DRUG SCREEN -([facility]) [facility] Ordered by Maya Barron MD on 10/19/2020 Collected: 10/19/2020 Reported: 10/19/2020 16:40 PCP Ur Ql Scn>25 ng/mL See Note (Cutoff 25) None Note: [id number] E@Reenter manual test result: NEGATIVE@by Jia Lentz at 10/19/20 1639.Responsible Observer: PCP Urine Phencyclidine (PCP) Scrn 400.5120 (A) THC Ur Ql Scn>50 ng/mL See Note (Cutoff 50) None Note: [id number] EResponsible Observer: Marijuana (THC) Ur Marijuana (THC) Screen 400.5110 (A) Benzodiaz Ur Ql Scn See Note (Cutoff 150) None Note: [id number] E@Reenter manual test result: NEGATIVE@by Jia Lentz at 10/19/20 1640.Responsible Observer: Benzodiazepines Urine Benzodiazepines Screen 400.5170 (A) Opiates Ur Ql Scn See Note (Cutoff 100) None Note: [id number] E@Reenter manual test result: NEGATIVE@by Jia Lentz at 10/19/20 1640.Responsible Observer: Opiates Urine Opiates Screen 400.5150 (A) Tricyclics Ur Ql Scn See Note (Cutoff 300) None Note: [id number] E@Reenter manual test result: NEGATIVE@by Jia Lentz at 10/19/20 1640.Responsible Observer: TCA Ur Tricyclic Antidepressants 400.5180 (A) Cocaine Ur Ql Scn See Note (Cutoff 150) None Note: [id number] E@Reenter manual test result: NEGATIVE@by Jia Lentz at 10/19/20 1640.Responsible Observer: Cocaine Urine Cocaine Screen 400.5130 (A) Propoxyph+Nor Ur Ql Scn See Note (Cutoff 300) None Note: [id number] E@Reenter manual test result: NEGATIVE@by Jia Lentz at 10/19/20 1640.Responsible Observer: Propoxyphene Urine Propoxyphene Screen 400.5220 (A) Methadone Ur Ql Scn See Note (Cutoff 200) None Note: [id number] E@Reenter manual test result: NEGATIVE@by Jia Lentz at 10/19/20 1640.Responsible Observer: Methadone Urine Methadone Screen 400.5190 (A) Methamphet Ur Ql Scn See Note (Cutoff 500) None Note: [id number] E@Reenter manual test result: NEGATIVE@by Jia Lentz at 10/19/20 1640.Responsible Observer: Methamphetamine Urine Methamphetamines Screen 400.5140 (A) oxyCODONE Ur Ql Scn See Note (Cutoff 100) None Note: [id number] E@Reenter manual test result: NEGATIVE@by Jia Lentz at 10/19/20 1640.Responsible Observer: Oxycodone Urine Oxycodone Screen 400.5210 (A) Buprenorphine Ur Ql See Note (Cutoff 10) None Note: [id number] E@Reenter manual test result: NEGATIVE@by Jia Lentz at 10/19/20 1640.Responsible Observer: Buprenorphine Urine Buprenorphine Screen 400.5230 (A) Amphetamines Ur Ql Scn>500 ng/mL See Note (Cutoff 500) None Note: [id number] E@Reenter manual test result: NEGATIVE@by Jia Lentz at 10/19/20 1640.Responsible Observer: Amphetamines Urine Amphetamines Screen 400.5160 (A) Barbiturates Ur Ql Scn>200 ng/mL See Note (Cutoff 200) None Note: [id number] E@Reenter manual test result: NEGATIVE@by Jia Lentz at 10/19/20 1640.Responsible Observer: Barbiturates Urine Barbiturates 400.5200 (A) Reviewed by Maya Barron MD on 10/20; All test results are final unless otherwise noted. Reported Physicians [facility] Ordered by Maya Barron MD on 10/19/2020 Collected: 10/19/2020 Reported: 10/19/2020 16:40 Reported Physicians See Note None Note: Reported Physicians:Ordering: Les Vanegas AAtjuan albertoding: Fady Raza To: Maya Barron Reviewed by Maya Barron MD on 10/20; All test results are final unless otherwise noted. TSH w/ reflex to Free T4 [facility] Ordered by Maya Barron MD on 10/19/2020 Collected: 10/19/2020 Reported: 10/19/2020 16:08 TSH SerPl DL<=0.005 mIU/L-aCnc 1.66 MicroInternationalUnitsPerMilliLiter_[Arbitrary_Con (0.35-5. 50) N (Normal) Note: Responsible Observer: TSH TSH 600 .7060 (D) Reviewed by Maya Barron MD on 10/20; All test results are final unless otherwise noted. Reported Physicians [facility] Ordered by Maya Barron MD on 10/19/2020 Collected: 10/19/2020 Reported: 10/19/2020 16:08 Reported Physicians See Note None Note: Reported Physicians:Ordering: Les Vanegas: Fady Raza To: Maya Barron Reviewed by Maya Barron MD on 10/20; All test results are final unless otherwise noted. TROPONIN [facility] Ordered by Maya Barron [...] are final unless otherwise noted. Reported Physicians [facility] Ordered by Maya Barron MD on 10/19/2020 Collected: 10/19/2020 Reported: 10/19/2020 16:10 Reported Physicians See Note None Note: Reported Physicians:Ordering: Les Vanegas: Fady Raza: Maya Barron Reviewed by Maya Barron MD on 10/20; All test results are final unless otherwise noted. CRP, C-REACTIVE PROTEIN [facility] Ordered by Maya Barron MD on 10/19/2020 Collected: 10/19/2020 Reported: 10/19/2020 16:08 CRP SerPl-mCnc 7.5 MilliGramsPerLiter_[Mass_Concentration_Units] (0.0-5.0) H (High) Note: Responsible Observer: CRP C-Reacti ve Protein 401.4355 (H) Reviewed by Maya Barron MD on 10/20; All test results are final unless otherwise noted. SED RATE [facility] Ordered by Myaa Barron MD on 10/19/2020 Collected: 10/19/2020 Reported: 10/19/2020 16:32 ESR Bld Qn Westrgrn 22 (0-20) H (High) Note: @Reenter manual test result: 22@by Jia Lentz at 10/19/20 1632.Responsible Observer: SED RATE SED RATE 100.6400 (B) Reviewed by Maya Barron MD on 10/20; All test results are final unless otherwise noted. Reported Physicians [facility] Ordered by Maya Barron MD on 10/19/2020 Collected: 10/19/2020 Reported: 10/19/2020 16:33 Reported Physicians See Note None Note: Reported Physicians:Ordering: Les Vanegasding: Fady Raza To: Maya Barron Reviewed by Maya Barron MD on 10/20; All test results are final unless otherwise noted. CMP [facility] Ordered by Maya Barron [...] unless otherwise noted. CBC W AUTO DIFF [facility] Ordered by Maya Barron [...] Auto See Note (0-2) N (Normal) Note: [id number] Ob counter server: IG% IG% 100.1375 (B) [...] are final unless otherwise noted. Reported Physicians [facility] Ordered by Maya Barron MD on 10/19/2020 Collected: 10/19/2020 Reported: 10/19/2020 16:33 Reported Physicians See Note None Note: Reported Physicians:Ordering: Les Vanegastending: Fady Raza To: Maya Barron Reviewed by Maya Barron MD on 10/20; All test results are final unless otherwise noted. PT/PTT [facility] Ordered by Maya Barron [...] are final unless otherwise noted. Reported Physicians [facility] Ordered by Maya Barron MD on 10/08/2020 Collected: 10/08/2020 Reported: 10/08/2020 03:22 Reported Physicians See Note None Note: Reported Physicians:Ordering: Renetta Recinosttending: Norman Annopy To: Maya Barron Reviewed by Maya Barron MD on 10/09; All test results are final unless otherwise noted. BMP [facility] Ordered by Maya Barron [...] are final unless otherwise noted. Reported Physicians [facility] Ordered by Maya Barron MD on 10/08/2020 Collected: 10/08/2020 Reported: 10/08/2020 03:21 Reported Physicians See Note None Note: Reported Physicians:Ordering: Sana Recinsoending: Sammie Ann To: Maya Barron Reviewed by Maya Barron MD on 10/09; All test results are final unless otherwise noted. CBC W AUTO DIFF [facility] Ordered by Maya Barron [...] Auto See Note (0-2) N (Normal) Note: [id number] Ob counter server: IG% IG% 100.1375 (B) [...] results are final unless otherwise noted. MAGNESIUM [facility] Ordered by Maya Barron MD on 10/08/2020 Collected: 10/08/2020 Reported: 10/08/2020 03:17 Magnesium SerPl-mCnc 1.8 MilliGramsPerDeciLiter_[Mass_Concentration_Units] (1.3-2.7) N (Normal) Note: Responsible Observer: Magnesium Ma gnesium 400.3300 (G) Reviewed by Maya Barron MD on 10/09; All test results are final unless otherwise noted. D-DIMER [facility] Ordered by Maya Barron [...] are final unless otherwise noted. Reported Physicians [facility] Ordered by Maya Barron MD on 10/08/2020 Collected: 10/08/2020 Reported: 10/08/2020 03:27 Reported Physicians See Note None Note: Reported Physicians:Ordering: Sana Recinosending: Sammie Ann To: Myaa Barron Reviewed by Maya Barron MD on 10/09; All test results are final unless otherwise noted. TSH w/ reflex to Free T4 [facility] Ordered by Maya Barron MD on 10/04/2020 Collected: 10/04/2020 Reported: 10/04/2020 17:42 TSH SerPl DL<=0.005 mIU/L-aCnc 1.92 MicroInternationalUnitsPerMilliLiter_[Arbitrary_Con (0.35-5. 50) N (Normal) Note: Responsible Observer: TSH TSH 600 .7060 (D) Reviewed by Maya Barron MD on 10/09; All test results are final unless otherwise noted. Reported Physicians [facility] Ordered by Maya Barron MD on 10/04/2020 Collected: 10/04/2020 Reported: 10/04/2020 17:42 Reported Physicians See Note None Note: Reported Physicians:Ordering: Les Vanegasding: Fady Raza To: Maya Barron Reviewed by Maya Barron MD on 10/09; All test results are final unless otherwise noted. CBC W AUTO DIFF [facility] Ordered by Maya Barron [...] Auto See Note (0-2) N (Normal) Note: [id number] Ob counter server: IG% IG% 100.1375 (B) [...] test results are final unless otherwise noted. [facility] Ordered by Maya Barron MD [...] are final unless otherwise noted. Reported Physicians [facility] Ordered by Maya Barron MD on 10/04/2020 Collected: 10/04/2020 Reported: 10/04/2020 17:42 Reported Physicians See Note None Note: Reported Physicians:Ordering: Les Vanegas: Fady Raza To: Maya Barron Reviewed by Maya Barron MD on 10/09; All test results are final unless otherwise noted. SED RATE [facility] Ordered by Maya Barron MD on 10/04/2020 Collected: 10/04/2020 Reported: 10/04/2020 18:05 ESR Bld Qn Westrgrn 16 (0-20) N (Normal) Note: @Reenter manual test result: 16@by Jia Lentz at 10/04/20 1805.Responsible Observer: SED RATE SED RATE 100.6400 (B) Reviewed by Maya Barron MD on 10/09; All test results are final unless otherwise noted. Reported Physicians [facility] Ordered by Maya Barron MD on 10/04/2020 Collected: 10/04/2020 Reported: 10/04/2020 18:06 Reported Physicians See Note None Note: Reported Physicians:Ordering: Les Vanegas: Fady Raza To: Maya Barron Reviewed by Maya Barron MD on 10/09; All test results are final unless otherwise noted. TROPONIN [facility] Ordered by Maya Barron [...] are final unless otherwise noted. Reported Physicians [facility] Ordered by Maya Barron MD on 10/04/2020 Collected: 10/04/2020 Reported: 10/04/2020 17:35 Reported Physicians See Note None Note: Reported Physicians:Ordering: Les Vanegas: Fady Raza To: Maya Barron Reviewed by Maya Barron MD on 10/09; All test results are final unless otherwise noted. CBC W AUTO DIFF [facility] Ordered by Maya Barron [...] Auto See Note (0-2) N (Normal) Note: [id number] Ob counter server: IG% IG% 100.1375 (B) [...] test results are final unless otherwise noted. [facility] Ordered by Maya Barron MD [...] (G) Reviewed by aMya Barron MD on 10/04; All test results are final unless otherwise noted. Reported Physicians [facility] Ordered by Maya Barron MD on 10/03/2020 Collected: 10/03/2020 Reported: 10/03/2020 20:03 Reported Physicians See Note None Note: Reported Physicians:Ordering: Cliff Napolesending: Charles Silva To: Maya Barron Reviewed by Maya Barron MD on 10/04; All test results are final unless otherwise noted. BHCG Quantitative [facility] Ordered by Maya Barron MD on 10/03/2020 Collected: 10/03/2020 Reported: 10/03/2020 20:23 B-HCG SerPl[facility] [address] MilliInternationalUnitsPerMilliLiter_[Arbitrary_Con (0-10) H (High) Note: @Instrument will [...] are final unless otherwise noted. Reported Physicians [facility] Ordered by Maya Barron MD on 10/03/2020 Collected: 10/03/2020 Reported: 10/03/2020 20:23 Reported Physicians See Note None Note: Reported Physicians:Ordering: Yoli NapolesAttending: Charles Silva To: Maya Barron Reviewed by Maya Barron MD on 10/04; All test results are final unless otherwise noted. TROPONIN [facility] Ordered by Maya Barron MD on 10/03/2020 Collected: 10/03/2020 Reported: 10/03/2020 20:07 [facility] Less Than 0.015 (0.00-0.09) N (Normal) Note: Less than 0.09 NG/ML Negative 0.10 - 0.77 NG/ML High Risk0.78 NG/ML or Greater PositiveThe WHO defined the cutoff (definition for diagnosis of AK)for this method as 0.78 ng/ml.Responsible Observer: Troponin I Troponin I 600.1101 (G) Reviewed by Maya Barron MD on 10/04; All test results are final unless otherwise noted. Reported Physicians [facility] Ordered by Maya Barron MD on 10/03/2020 Collected: 10/03/2020 Reported: 10/03/2020 20:07 Reported Physicians See Note None Note: Reported Physicians:Ordering: Yoli NapolesAttending: Yoli SilvaCopy To: Maya Barron Reviewed by Maya Barron MD on 10/04; All test results are final unless otherwise noted. MANUAL DIFF [facility] Ordered by Maya Barron [...] are final unless otherwise noted. Reported Physicians [facility] Ordered by Maya Barron MD on 10/03/2020 Collected: 10/03/2020 Reported: 10/03/2020 19:56 Reported Physicians See Note None Note: Reported Physicians:Ordering: Yoli NapolesAttending: Yoli SilvaCopy To: Maya Barron Reviewed by Maya Barron MD on 10/04; All test results are final unless otherwise noted. FREE T4 (LAB) [facility] Ordered by Maya Barron MD on 10/03/2020 Collected: 10/03/2020 Reported: 10/03/2020 20:08 T4 Free SerPl-mCnc 0.97 NanoGramsPerDeciLiter_[Mass_Concentration_Units] (0.89-1.76) N (Normal) Note: Responsible Observer: FREE T4 Free Thyroxine 600.7005 (D) Reviewed by Maya Barron MD on 10/04; All test results are final unless otherwise noted. Reported Physicians [facility] Ordered by Maya Barron MD on 10/03/2020 Collected: 10/03/2020 Reported: 10/03/2020 20:08 Reported Physicians See Note None Note: Reported Physicians:Ordering: Yoli NapolesAttending: Charles Silva To: Maya Barron Reviewed by Maya Barron MD on 10/04; All test results are final unless otherwise noted. ADD ON MICROSCOPIC [facility] Ordered by Maya Barron MD on 10/03/2020 Collected: 10/03/2020 Reported: 10/03/2020 19:52 ADD ON MICROSCOPIC See Note (0-5) None Note: NOTES OTHER/NOT INTERPRETED Bacteria UrnS Ql Micro SMALL AMOUNT Bacteria UrnS Ql Micro SMALL AMOUNT Bacteria UrnS Ql Micro L Bacteria UrnS Ql Micro Bacteria UrnS Ql Micro Bacteria UrnS Ql Micro Bacteria UrnS Ql Micro [id number] Bacteria UrnS Ql Micro Bacteria UrnS Ql [...] are final unless otherwise noted. Reported Physicians [facility] Ordered by Maya Barron MD on 10/03/2020 Collected: 10/03/2020 Reported: 10/03/2020 19:52 Reported Physicians See Note None Note: Reported Physicians:Ordering: Yoli NapolesAttending: Charles Silva To: Maya Barron Reviewed by Maya Barron MD on 10/04; All test results are final unless otherwise noted. UA W/ CULTURE IF ABNORMAL [facility] Ordered by Maya Barron MD on 10/03/2020 Collected: 10/03/2020 Reported: 10/03/2020 19:52 Urobilinogen Ur Ql See Note (0.2-1 EU/dl) None Note: 0.2 EU/dl0.2 EU/[id number] E U/dlResponsible Observer: UROBILINOGEN UROBILINOGEN 300.4500 (C) RBC # Ur Strip NEGATIVE (NEGATIVE) None Note: Responsible Observer: BLOOD BLOOD 300.4652 (C) Prot Ur Ql Strip See Note (NEGATIVE) None Note: [id number] EResponsible Observer: PROTEIN PROTEIN 300.3750 (C) Ketones Ur Ql Strip See Note (NEGATIVE) None Note: [id number] EResponsible Observer: KETONE KETONE 300.3900 (C) Bilirub Ur Ql Strip.auto See Note (NEGATIVE) None Note: [id number] EResponsible Observer: BILIRUBIN BILIRUBIN 300.4550 (C) Glucose Ur Strip.auto-mCnc NEGATIVE (NEGATIVE) None Note: Responsible Observer: GLUCOSE GLUC OSE 300.3850 (C) Appearance Ur See Note (CLEAR) None Note: CLEARCLEARLCLEARResponsible Observ er: APPEARANCE APPEARANCE 300.3400 (A) Color Ur See Note None Note: YELLOWYELLOWLYELLOWResponsible Obs erver: COLOR COLOR 300.3330 (A) Leukocyte esterase Ur Ql Strip See Note (NEGATIVE) None Note: [id number]@DO MICR O!!!!A Culture has been added to this specimen per established criteriaResponsible Observer: LEUKOCYTES LEUKOCYTES 300.3576 (C) Nitrite Ur Ql Strip See Note (NEGATIVE) None Note: [id number] EResponsible Observer: NITRITE NITRITE 300.3652 (B) pH [...] are final unless otherwise noted. Urine culture [facility] Ordered by Maya Barron MD on 10/03/2020 Collected: 10/03/2020 Reported: 10/04/2020 13:10 Bacteria Ur Cult See Note None Note: NGNo growth.L1NG NOTES See Note None Note: @10/03/201951: Urine culture adde d. RFLXG = CULT.ADD. Reviewed by Maya Barron MD on 10/04; All test results are final unless otherwise noted. Reported Physicians [facility] Ordered by Maya Barron MD on 10/03/2020 Collected: 10/03/2020 Reported: 10/04/2020 13:10 Reported Physicians See Note None Note: Reported Physicians:Ordering: Yoli NapolesAttending: Charles Silva To: Maya Barron Reviewed by Maya Barron MD on 10/04; All test results are final unless otherwise noted. BHCG, QUANTITATIVE [facility] Ordered by Maya Barron MD on 09/18/2020 Collected: 09/18/2020 Reported: 09/18/2020 20:21 B-HCG [facility] [id number] MilliInternationalUnitsPerMilliLiter_[Arbitrary_Con (0-10) H (High) Note: APPROXIMATE GESTATION [...] are final unless otherwise noted. Reported Physicians [facility] Ordered by Maya Barron MD on 09/18/2020 Collected: 09/18/2020 Reported: 09/18/2020 20:22 Reported Physicians See Note None Note: Reported Physicians:Ordering: Yoli NapolesAttending: Charles Silva To: Maya Barron Reviewed by Maya Barron MD on 09/20; All test results are final unless otherwise noted. CBC W AUTO DIFF [facility] Ordered by Maya Barron [...] Auto See Note (0-2) N (Normal) Note: [id number] Ob counter server: IG% IG% 100.1375 (B) [...] test results are final unless otherwise noted. [facility] Ordered by Maya Barron MD [...] are final unless otherwise noted. Reported Physicians [facility] Ordered by Maya Barron MD on 09/18/2020 Collected: 09/18/2020 Reported: 09/18/2020 20:10 Reported Physicians See Note None Note: Reported Physicians:Ordering: Yoli NapolesAttending: Charles Silva To: Maya Barron Reviewed by Maya Barron MD on 09/20; All test results are final unless otherwise noted. TROPONIN [facility] Ordered by Maya Barron [...] are final unless otherwise noted. Reported Physicians [facility] Ordered by Maya Barron MD on 09/18/2020 Collected: 09/18/2020 Reported: 09/18/2020 20:10 Reported Physicians See Note None Note: Reported Physicians:Ordering: Yoli NapolesAttending: Charles Silva To: Maya Barron Reviewed by Maya Barron MD on 09/20; All test results are final unless otherwise noted. Urine culture [facility] Ordered by Cat Gutierrez RPA on 09/11/2020 Collected: 09/11/2020 Reported: 09/12/2020 13:11 Bacteria Ur Cult See Note None Note: NGNo growth.L1NG NOTES See Note None Note: GEORGIANA PICKARD IN OTHER NAME IN MEDICAL RECORD Reviewed by Cat Gutierrez RPA on 09/12; All test results are final unless otherwise noted. Reported Physicians [facility] Ordered by Cat Gutierrez RPA on 09/11/2020 Collected: 09/11/2020 Reported: 09/12/2020 13:11 Reported Physicians See Note None Note: Reported Physicians:Ordering: Cat ConwayAttending: Cat Gutierrez Reviewed by Cat Gutierrez RPA on 09/12; All test results are final unless otherwise noted. UA W/ CULTURE IF ABNORMAL [facility] Ordered by Maya Barron MD on 09/10/2020 Collected: 09/10/2020 Reported: 09/10/2020 17:48 Urobilinogen Ur Ql See Note (0.2-1 EU/dl) None Note: 0.2 EU/dl0.2 EU/[id number] E U/dlResponsible Observer: UROBILINOGEN UROBILINOGEN 300.4500 (C) RBC # Ur Strip NEGATIVE (NEGATIVE) None Note: Responsible Observer: BLOOD BLOOD 300.4652 (C) Prot Ur Ql Strip See Note (NEGATIVE) None Note: [id number] EResponsible Observer: PROTEIN PROTEIN 300.3750 (C) Ketones Ur Ql Strip See Note (NEGATIVE) None Note: [id number] ble Observer: KETONE KETONE 300.3900 (C) Bilirub Ur Ql Strip.auto See Note (NEGATIVE) None Note: [id number] EResponsible Observer: BILIRUBIN BILIRUBIN 300.4550 (C) Glucose Ur Strip.auto-mCnc NEGATIVE (NEGATIVE) None Note: Responsible Observer: GLUCOSE GLUC OSE 300.3850 (C) Appearance Ur See Note (CLEAR) None Note: CLEARCLEARLCLEARResponsible Observ er: APPEARANCE APPEARANCE 300.3400 (A) Color Ur See Note None Note: YELLOWYELLOWLYELLOWResponsible Obs erver: COLOR COLOR 300.3330 (A) Leukocyte esterase Ur Ql Strip See Note (NEGATIVE) None Note: [id number] EResponsible Observer: LEUKOCYTES LEUKOCYTES 300.3576 (C) Nitrite Ur Ql Strip See Note (NEGATIVE) None Note: [id number] EResponsible Observer: NITRITE NITRITE 300.3652 (B) pH [...] are final unless otherwise noted. Reported Physicians [facility] Ordered by Maya Barron MD on 09/10/2020 Collected: 09/10/2020 Reported: 09/10/2020 17:48 Reported Physicians See Note None Note: Reported Physicians:Ordering: Les Vanegas: Fady Raza To: Maya Barron Reviewed by Maya Barron MD on 09/11; All test results are final unless otherwise noted. BHCG, QUANTITATIVE [facility] Ordered by Maya Barron MD on 09/10/2020 Collected: 09/10/2020 Reported: 09/10/2020 15:48 B-HCG [facility] [id number] MilliInternationalUnitsPerMilliLiter_[Arbitrary_Con (0-10) H (High) Note: @Instrument will [...] are final unless otherwise noted. Reported Physicians [facility] Ordered by Maya Barron MD on 09/10/2020 Collected: 09/10/2020 Reported: 09/10/2020 15:49 Reported Physicians See Note None Note: Reported Physicians:Ordering: Les Vanegas: Fady Raza To: Maya Barron Reviewed by Maya Barron MD on 09/11; All test results are final unless otherwise noted. ABO/Rh Type [facility] Ordered by Maya Barron MD on 09/10/2020 Collected: 09/10/2020 Reported: 09/10/2020 15:43 Blood bank studies Yes None Note: Responsible Observer: Prev. Histor y? Previous History? 100.0800 (A) Blood Type See Note None Note: OPO PositiveLResponsible Observer: Blood Type Blood Type 110.0950 (C) Reviewed by Maya Barron MD on 09/11; All test results are final unless otherwise noted. Reported Physicians [facility] Ordered by Maya Barron MD on 09/10/2020 Collected: 09/10/2020 Reported: 09/10/2020 15:43 Reported Physicians See Note None Note: Reported Physicians:Ordering: Les Vanegas AAttending: Fady Raza To: Maya Barron Reviewed by Maya Barron MD on 09/11; All test results are final unless otherwise noted. COVID QUEST [facility] Ordered by Maya Barron [...] findings,re- testing should be considered in [facility] authorities. Laboratory test results shouldalways be considered in the context of clinicalobservations and epidemiological data in making a finaldiagnosis and patient management decisions.Please review the "Fact Sheets" and FDA authorizedlabeling available for health care providers andpatients using the following websites:https://www.[employer] .com/home/Covid-19/HCP/NAAT/fact-xztfe0dsage://www.[employer]/home/Cov id-19/Patients/NAAT/fact-xvweb6Yiub test has been authorized by the FDA under anEmergency Use Authorization (EUA) for use by authorizedlaboratories.Due to the current public health emergency, [facility] is receiving a high volume of samples [...] information about COVID-19 can be foundat the [facility] website:www.[facility]/Covid19.THIS TEST WAS PERFORMED AT:[facility] [address]SIYYMU MERATI,CLAUDYesponsible Observer: COVID-19 COVID-19 ТАТЬЯНА (SARS-CoV-2) [id number] 914.5544 ([facility]) Reviewed by Maya Barron MD on 08/25; All test results are final unless otherwise noted. Reported Physicians [facility] Ordered by Maya Barron MD on 08/23/2020 Collected: 08/23/2020 Reported: 08/25/2020 03:57 Reported Physicians See Note None Note: Reported Physicians:Ordering: Sana Recinosending: Sammie Ann To: Maya Barron Reviewed by Maya Barron MD on 08/25; All test results are final unless otherwise noted. Rapid [facility] Ordered by Maya Barron MD on 08/15/2020 [address] [place], [address] Collected: 08/15/2020 Reported: 08/15/2020 11:47 tel : strep antigen normal (negative) N (Normal) Reviewed by Maya Barron MD on 08/15; All test results are final unless otherwise noted. Urinalysis w/out microscopy [facility] Ordered by Maya Barron MD on 08/15/2020 [address] [place], [address] Specimen Source: Urine Collected: 08/15/2020 Reporte d: 08/15/2020 11:03 tel:[phone] bilirubin normal (neg) N (Normal) blood normal [...] unless otherwise noted. Extended hours FLU/COV2 NAAT [facility] Ordered by Maya Barron MD on 08/15/2020 Collected: 08/15/2020 Reported: 08/15/2020 15:55 Extended hours FLU/COV2 NAAT See Note None Note: TNPNo Reportable ResultLTNPNo Repo rtable UqkwhqK4WVW NOTES See Note None Note: GEORGIANA PICKARD IN OTHER NAME IN MEDICAL RECORD Reviewed by Maya Barron MD on 08/16; All test results are final unless otherwise noted. Reported Physicians [facility] Ordered by Maya Barron MD on 08/15/2020 Collected: 08/15/2020 Reported: 08/15/2020 15:55 Reported Physicians See Note None Note: Reported Physicians:Ordering: Maya AlvarengaAttending: Maya Barron Reviewed by Maya Barron MD on 08/16; All test results are final unless otherwise noted. Sweta Raquel SARS/FLU [facility] Ordered by Maya Barron MD on 08/15/2020 Collected: 08/15/2020 Reported: 08/15/2020 15:55 Sweta Raquel SARS/FLU See Note None Note: Sweta Raquel is a rapid, automated q ualitative anddifferentiation of Influenza type A,B and HQFA-HKQ-1IHMF-RT-PCR testNORMAL VALUE IS "NOT DETECTED".Limitations of the sweta raquel Influenza A/B & VZNT-EGE-4iigze method.Modifications to manufacturers recommendation and proceduresmay alter performance of the test.Negative results do not preclude Influenza A,B or SARS- NID0ficlnzyfgd and should not be used as the sole basis fortreatment or other management decisions. Results from the[employer]bas Raquel Influenza A/B & COV2 should be [...] out diseases caused by other bacterialor viral pathogens.75503-1JXOB-ohm CoV RNA Resp Ql ТАТЬЯНА+probeLNNSARS SARS-COV-2 NOT [id number]-DDO-1 NOT TIKEAZVH39722-9CFFTX RNA Resp Ql ТАТЬЯНА+probeLNNFLUAInfluenza A Not [id number] A Not Rnsylxfw76186-1NIHGK RNA Resp Ql ТАТЬЯНА+probeLNNINBInfluenza B Not [id number] B Not Detected NOTES See Note None Note: GEORGIANA PICKARD IN OTHER NAME IN MEDICAL RECORD Reviewed by Maya Barron MD on 08/18; All test results are final unless otherwise noted. Throat culture [facility] Ordered by Maya Barron MD on 08/15/2020 Collected: 08/15/2020 Reported: 08/17/2020 06:37 Throat culture results Normal Deisy None Reviewed by Maya Barron MD on 08/18; All test results are final unless otherwise noted. Reported Physicians [facility] Ordered by Maya Barron MD on 08/15/2020 Collected: 08/15/2020 Reported: 08/17/2020 06:37 Reported Physicians See Note None Note: Reported Physicians:Ordering: Maya AlvarengaAttending: Maya Barron Reviewed by Maya Barron MD on 08/18; All test results are final unless otherwise noted. HPVI [facility] Ordered by Cat Gutierrez RPA on 08/09/2020 Collected: 08/09/2020 Reported: 08/15/2020 06:53 Thin Prep Vag See Note None Note: See scanned reportSee scanned repo rtLSee scanned reportResponsible Observer: TP w/HPV if ASC Thinprep w/HPV if ASCUS 805.1454 ([facility]) NOTES See Note None Note: AAS29-26Dkqxjbmttw Technique: BRUS H-SPATULABody Site: CERVIX Reviewed by Cat Gutierrez RPA on 08/15; All test results are final unless otherwise noted. Reported Physicians [facility] Ordered by Cat Gutierrez RPA on 08/09/2020 Collected: 08/09/2020 Reported: 08/15/2020 06:53 Reported Physicians See Note None Note: Reported Physicians:Ordering: Atte nding: Rigo Gutierrez To: Maya Barron Reviewed by Cat Gutierrez RPA on 08/15; All test results are final unless otherwise noted. GCAMP [facility] Ordered by Cat Gutierrez RPA on 08/09/2020 Collected: 08/09/2020 Reported: 08/11/2020 06:52 C trach rRNA XXX Ql ТАТЬЯНА+probe See Note (NOT DETECTED) None Note: NOT DETECTEDNOT [id number] 6NOT DETECTEDResponsible Observer: C.Trach RNA Chlamydia trachomatis DNA-ТАТЬЯНА [id number] 913.9900 ([facility]) N gonorrhoea rRNA XXX Ql ТАТЬЯНА+probe See Note (NOT DETECTED) None Note: NOT DETECTEDNOT [id number] 6NOT DETECTEDResponsible Observer: GC RNA Neisseria gonorrhoeae DNA -ТАТЬЯНА 41612395 913.9905 ([facility]) Chlamydia/GC DNA Note SEE NOTE None Note: The analytical performance charact eristics of thisassay, when used to test SurePath(TM) specimens have beendetermined by [facility]. The modifications havenot been cleared or approved by the FDA. This assay hasbeen validated pursuant to the CLIA regulations and isused for clinical purposes.For additional information, please refer tohttps://education.uTaP/faq/MWZ881(This link is being provided for information/educational purposes only.)THIS TEST WAS PERFORMED AT:[facility] [address]OSEAS MEANS,MDResponsible Observer: GC/Chlam Note Chlamydia/GC DNA Note [id number] 913.2234 (A) NOTES See Note None Note: PICKARD:IN OTHER NAME IN MEDICAL RECORD Reviewed by Cat Gutierrez RPA on 08/12; All test results are final unless otherwise noted. Reported Physicians [facility] Ordered by Cat Gutierrez RPA on 08/09/2020 Collected: 08/09/2020 Reported: 08/11/2020 06:52 Reported Physicians See Note None Note: Reported Physicians:Ordering: Atte nding: Brenda, CatCopy To: Maya Barron Reviewed by Cat Gutierrez RPA on 08/12; All test results are final unless otherwise noted. AFFIRM [facility] Ordered by Cat Gutierrez RPA on 08/09/2020 Collected: 08/09/2020 Reported: 08/11/2020 06:52 Dionna species DNA Probe NOT DETECTED (NOT DETECTED) None Note: THIS TEST WAS PERFORMED AT:[facility] [address]JWKGGY MERATI,MDResponsible Observer: Dionna DNA Dionna species DNA Probe [id number] 913.2350 ([facility]) Gardnerella DNA Probe DETECTED (NOT DETECTED) H (High) Note: Increased levels of G. vaginalis m ay not be significantin the absence of signs and symptoms of bacterialvaginosis.Responsible Observer: Gardnerella DNA Gardnerella DNA Probe [id number] 913.2345 ([facility]) Trichomonas DNA Probe NOT DETECTED (NOT DETECTED) None Note: Responsible Observer: Trichomonas DNA Trichomonas DNA Probe [id number] 913.2340 ([facility]) NOTES See Note None Note: PICKARD:IN OTHER NAME IN MEDICAL RECORD Reviewed on 08/11/2020; All test result s are final unless otherwise noted. Reported Physicians [facility] Ordered by Cat Gutierrez RPA on 08/09/2020 Collected: 08/09/2020 Reported: 08/11/2020 06:52 Reported Physicians See Note None Note: Reported Physicians:Ordering: Atte nding: Rigo Gutierrez To: Maya Barron Reviewed on 08/11/2020; All test result s are final unless otherwise noted. ADD ON MICROSCOPIC [facility] Ordered by Cat Gutierrez RPA on 08/09/2020 Collected: 08/09/2020 Reported: 08/09/2020 12:23 ADD ON MICROSCOPIC See Note (0-5) H (High) Note: NOTES OTHER/NOT INTERPRETED Bacteria UrnS Ql Micro SMALL AMOUNT Bacteria UrnS Ql Micro SMALL AMOUNT Bacteria UrnS Ql Micro L Bacteria UrnS Ql Micro Bacteria UrnS Ql Micro Bacteria UrnS Ql Micro Bacteria UrnS Ql Micro [id number] Bacteria UrnS Ql Micro Bacteria UrnS Ql [...] Ql Micro Mucous Threads UrnS Ql Micro [id number] Mucous Threads UrnS Ql Micro Mucous Threads UrnS Ql Micro MODERATE AMOUNT WBC # Ur Manual 5-8 @08/09/20 1210: UA W/ MICRO added. RFLXG = UMIC.Method of Collection:: Clean CatchResponsible Observer: WBC WBC 300.5000 (A) Reviewed by Cat Gutierrez RPA on 08/12; All test results are final unless otherwise noted. Reported Physicians [facility] Ordered by Cat Gutierrez RPA on 08/09/2020 Collected: 08/09/2020 Reported: 08/10/2020 17:47 Reported Physicians See Note None Note: Reported Physicians:Ordering: Attchandler barton: Rigo Gutierrez To: Maya Barron Reviewed by Cat Gutierrez RPA on 08/12; All test results are final unless otherwise noted. MEDMATCH [facility] Ordered by Cat Gutierrez RPA on 08/09/2020 Collected: 08/09/2020 Reported: 08/13/2020 15:56 MEDMATCH See scanned report None Note: Responsible Observer: MEDMATCH MED MATCH 910.59211 ([facility]) Reviewed by Cat Gutierrez [facility] on 08/14; All test results are final unless otherwise noted. Reported Physicians [facility] Ordered by Cat Gutierrez RPA on 08/09/2020 Collected: 08/09/2020 Reported: 08/13/2020 15:56 Reported Physicians See Note None Note: Reported Physicians:Ordering: Atte oralia: Rigo Gtuierrez To: Maya Barron Reviewed by Cat Gutierrez [facility] on 08/14; All test results are final unless otherwise noted. URINALYSIS [facility] Ordered by Cat Gutierrez RPA on 08/09/2020 Collected: 08/09/2020 Reported: 08/09/2020 12:23 Urobilinogen Ur Ql See Note (0.2-1 EU/dl) None Note: 1 EU/dl1 EU/[id number] EU/dlRe sponsible Observer: UROBILINOGEN UROBILINOGEN 300.4500 (C) RBC # Ur Strip NEGATIVE (NEGATIVE) None Note: Responsible Observer: BLOOD BLOOD 300.4650 (C) Prot Ur Ql Strip See Note (NEGATIVE) None Note: [id number] ble Observer: PROTEIN PROTEIN 300.3750 (C) Ketones Ur Ql Strip See Note (NEGATIVE) None Note: [id number] ble Observer: KETONE KETONE 300.3900 (C) Bilirub Ur Ql Strip.auto See Note (NEGATIVE) None Note: [id number] EResponsible Observer: BILIRUBIN BILIRUBIN 300.4550 (C) Glucose Ur Strip.auto-mCnc NEGATIVE (NEGATIVE) None Note: Responsible Observer: GLUCOSE GLUC OSE 300.3850 (C) Appearance Ur See Note (CLEAR) None Note: CLEARCLEARLCLEARResponsible Observ er: APPEARANCE APPEARANCE 300.3400 (A) Color Ur See Note None Note: DARK YELLOWDARK YELLOWLDARK YELLOW Responsible Observer: COLOR COLOR 300.3300 (A) Leukocyte esterase Ur Ql Strip See Note (NEGATIVE) None Note: [id number]@DO MICR O!!!!Responsible Observer: LEUKOCYTES LEUKOCYTES 300.3575 (C) Nitrite Ur Ql Strip See Note (NEGATIVE) None Note: [id number] EResponsible Observer: NITRITE NITRITE 300.3650 (B) pH [...] are final unless otherwise noted. Urine culture [facility] Ordered by Cat Gutierrez RPA on 08/09/2020 Collected: 08/09/2020 Reported: 08/10/2020 08:33 Bacteria Ur Cult See Note None Note: NGNo growth.L1NG Reviewed by Cat Gutierrez RPA on 08/14; All test results are final unless otherwise noted. Type and Screen [facility] Ordered by Cat Gutierrez RPA [...] are final unless otherwise noted. Reported Physicians [facility] Ordered by Cat Gutierrez RPA on 08/09/2020 Collected: 08/09/2020 Reported: 08/09/2020 12:39 Reported Physicians See Note None Note: Reported Physicians:Ordering: Cat ConwayAttending: Cat GutierrezCopyifan To: Maya Barron Reviewed by Cat Gutierrez RPA on 08/10; All test results are final unless otherwise noted. Varicella-Zoster IgG Antibody [facility] Ordered by Cat Gutierrez RPA on 08/09/2020 Collected: 08/09/2020 Reported: 08/10/2020 17:47 VZV IgG Ser [facility] 242.10 None Note: Index Interpr etation [...] Antibody Immunity Screen, ACIF.THIS TEST WAS PERFORMED AT:[facility] [address]NSWYEV [place] RATI,MDResponsible Observer: VARICELLA IGG Varicella-Zoster IgG Antibody [id number] 752.9201 ([facility]) NOTES See Note None Note: Patient Street Address: [address] [place] [address] [address] City: [place] Zip Code: [address] Reviewed by Cat Gutierrez RPA on 08/12; All test results are final unless otherwise noted. HCV RFX ТАТЬЯНА [facility] Ordered by Cat Gutierrez RPA on 08/09/2020 Collected: 08/09/2020 Reported: 08/10/2020 17:47 HCV Ab Ser Ql See Note (NON-REACTIVE) None Note: KUK-MWHAUPUCJHD-[id number] 7NON-REACTIVEResponsible Observer: HEP C ANTIBODY Hepatitis C Antibody [id number] 914.8305 ([facility]) HCV RNA Qualitative (ТАТЬЯНА) 0.54 (<1.00) None Note: HCV antibody was non-reactive. The re is no laboratoryevidence of HCV infection.In most cases, no further action is required. However,if recent HCV exposure is suspected, a test for HCV RNA(test code 56259) is suggested.For additional information please refer tohttp://education.uTaP/faq/IAT31k5(This link is being provided for informational/educational purposes only.)THIS TEST WAS PERFORMED AT:[facility] [address]CLAUDY ONEILLesponsible Observer: SIG TO C/O SIGNAL TO CUTOFF [id number] 914.8317 ([facility]) NOTES See Note None Note: Patient Street Address: [address] [place] [address] [address] City: [place]Patient State: [facility] Zip Code: [address]sh Reviewed by Cat Gutierrez RPA on 08/12; All test results are final unless otherwise noted. Reported Physicians [facility] Ordered by Cat Gutierrez RPA on 08/09/2020 Collected: 08/09/2020 Reported: 08/10/2020 17:47 Reported Physicians See Note None Note: Reported Physicians:Ordering: Atte oralia: Rigo Gutierrez To: Maya Barron Reviewed by Cat Gutierrez RPA on 08/12; All test results are final unless otherwise noted. CBC [facility] Ordered by Cat Gutierrez RPA [...] Auto See Note (0-2) N (Normal) Note: 0.20.3J40724954010.2Responsible Ob counter server: IG% IG% 100.1375 (B) [...] test results are final unless otherwise noted. [facility] Ordered by Cat Gutierrez RPA on 08/09/2020 Collected: 08/09/2020 Reported: 08/09/2020 14:24 TSH SerPl DL<=0.005 mIU/L-aCnc 1.18 MicroInternationalUnitsPerMilliLiter_[Arbitrary_Con (0.35-5. 50) N (Normal) Note: Responsible Observer: TSH TSH 600 .7055 (D) Reviewed by Cat Gutierrez RPA on 08/14; All test results are final unless otherwise noted. Lead (Venous) Wh.Bld [facility] Ordered by Cat Gutierrez RPA on 08/09/2020 Collected: 08/09/2020 Reported: 08/10/2020 17:47 Lead Bld-sCnc <1 (<5) None Note: See Note 1Note 1This test was faith granados and its analytical performancecharacteristics have been determined by [facility]. It has not been cleared or approved by theA. This assay has been validated pursuant to the CLIAregulations and is used for clinical purposes.THIS TEST WAS PERFORMED AT:[facility] [address]LQEXQA MERATI,MDResponsible Observer: Lead, WB Lead, Whole Blood [id number] 911.2190 ([facility]) NOTES See Note None Note: Patient Street Address: [address] [place] [address] [address]Patient City: [place] State: [facility] Zip Code: [address]ohfcev Reviewed by Cat Gutierrez RPA on 08/14; All test results are final unless otherwise noted. ncPN REF [facility] Ordered by Cat Gutierrez RPA on 08/09/2020 Collected: 08/09/2020 Reported: 08/13/2020 15:26 T pallidum Ab Ser Ql Aggl See Note (Nonreactive) None Note: [id number] onreactiveResponsible Observer: TP-PA Treponema pallidum Ab (TP-PA) 20082008 906.9674 ([facility]) HIV1 RNA SerPl Ql ТАТЬЯНА+probe See Note None Note: TNPNo Reportable ResultLTNPNo Repo rtable ResultLLEP.LIVENTNPResponsible Observer: HIV 1 RNA, QL T HIV 1 RNA, QL TMA [id number] 908.0254 ([facility]) HBV surface Ag SerPl Ql IA See Note (NON-REACTIVE) None Note: BOA-VERZCSOFQCP-[id number] 5NON-REACTIVEResponsible Observer: HBSAG Hepatitis B Surface Antigen 28752500 910.2004 ([facility]) RUBV IgG SerPl IA-aCnc 1.76 None Note: Index Interpretatio n ----- <0.90 Not consistent with immunity 0.90-0.99 Equivocal > or = 1.00 Consistent with immunityThe presence of rubella IgG antibody suggestsimmunization or past or current infection withrubella virus.THIS TEST WAS PERFORMED AT:[facility] [address]JGUIAP MERATI,MDResponsible Observer: Rubella IgG Ab Rubella IgG Ab [id number] 911.2840 ([facility]) HIV1 Ab SerPlBld Ql IA.rapid See Note None Note: TNPNo Reportable ResultLTNPNo Repo rtable ResultLLEP.LIVENTNPResponsible Observer: HIV 1 AB HIV 1 AB [id number] 908.0250 ([facility]) HBsAg Confirmation See Note None Note: TNPNo Reportable ResultLTNPNo Repo rtable ResultLLEP.LIVENTNPResponsible Observer: HBsAg Confirm HBsAg Confirmation [id number] 910.2006 ([facility]) HIV (1&2) Screen, 4th Gen [...] for this purpose.For additional information please refer tohttp://education.[employer]/faq/JML315(This link is being provided for informational/educational purposes only.)The performance of this assay has not been clinicallyvalidated in patients less than 2 years old.THIS TEST WAS PERFORMED AT:[facility] [id number] ONEILLesponsible Observer: HIV ABS HIV (1&2) Screen, 4th Gen [id number] 908.0298 ([facility]) Reviewed by Cat Gutierrez RPA on 08/14; All test results are final unless otherwise noted. Reported Physicians [facility] Ordered by Cat Gutierrez RPA on 08/09/2020 Collected: 08/09/2020 Reported: 08/13/2020 15:27 Reported Physicians See Note None Note: Reported Physicians:Ordering: Atte ndcristiane: Rigo Gutierrez To: Maya Barron Reviewed by Cat Guiterrez RPA on 08/14; All test results are final unless otherwise noted. BHCG, QUANTITATIVE [facility] Ordered by Cat Gutierrez RPA on 08/08/2020 Collected: 08/08/2020 Reported: 08/08/2020 11:53 B-HCG [facility] [address] MilliInternationalUnitsPerMilliLiter_[Arbitrary_Con (0-10) H (High) Note: @Instrument will [...] are final unless otherwise noted. Reported Physicians [facility] Ordered by Cat Gutierrez RPA on 08/08/2020 Collected: 08/08/2020 Reported: 08/08/2020 11:54 Reported Physicians See Note None Note: Reported Physicians:Ordering: Atte oralia: Rigo Gutierrez To: Maya Barron Reviewed by Cat Gutierrez RPA on 08/08; All test results are final unless otherwise noted. Type and Screen [facility] Ordered by Cat Gutierrez RPA [...] are final unless otherwise noted. Reported Physicians [facility] Ordered by Cat Gutierrez RPA on 08/01/2020 Collected: 08/01/2020 Reported: 08/01/2020 06:03 Reported Physicians See Note None Note: Reported Physicians:Ordering: Aj Ferreiraending: Jos Rivas To: Maya Barron Reviewed by Cat Gutierrez RPA on 08/01; All test results are final unless otherwise noted. BHCG, QUANTITATIVE [facility] Ordered by Cat Gutierrez RPA on 08/01/2020 Collected: 08/01/2020 Reported: 08/01/2020 02:26 B-HCG [facility] [address] MilliInternationalUnitsPerMilliLiter_[Arbitrary_Con (0-10) H (High) Note: @Instrument will [...] are final unless otherwise noted. Reported Physicians [facility] Ordered by Cat Gutierrez RPA on 08/01/2020 Collected: 08/01/2020 Reported: 08/01/2020 02:26 Reported Physicians See Note None Note: Reported Physicians:Ordering: Aj Ferreiraending: Jos Rivas To: Maya Barron Reviewed by Cat Gutierrez RPA on 08/01; All test results are final unless otherwise noted. CBC W AUTO DIFF [facility] Ordered by Cat Gutierrez RPA [...] Auto See Note (0-2) N (Normal) Note: [id number] Ob counter server: IG% IG% 100.1375 (B) [...] test results are final unless otherwise noted. [facility] Ordered by Cat Gutierrez RPA [...] are final unless otherwise noted. Reported Physicians [facility] Ordered by Cat Gutierrez RPA on 08/01/2020 Collected: 08/01/2020 Reported: 08/01/2020 02:26 Reported Physicians See Note None Note: Reported Physicians:Ordering: Aj Ferreiraending: Jos Rivas To: Maya Barron Reviewed by Cat Gutierrez RPA on 08/01; All test results are final unless otherwise noted. UA W/ CULTURE IF ABNORMAL [facility] Ordered by Cta Gutierrez RPA on 08/01/2020 Collected: 08/01/2020 Reported: 08/01/2020 01:01 Urobilinogen Ur Ql See Note (0.2-1 EU/dl) None Note: 0.2 EU/dl0.2 EU/[id number] E U/dlResponsible Observer: UROBILINOGEN UROBILINOGEN 300.4500 (C) RBC # Ur Strip SMALL (NEGATIVE) None Note: @DO MICRO!!!!Responsible Observer: BLOOD BLOOD 300.4652 (C) Prot Ur Ql Strip See Note (NEGATIVE) None Note: [id number] EResponsible Observer: PROTEIN PROTEIN 300.3750 (C) Ketones Ur Ql Strip See Note (NEGATIVE) None Note: 15 mg/dL15 mg/yDI891120271143 mg/d LResponsible Observer: KETONE KETONE 300.3900 (C) Bilirub Ur Ql Strip.auto See Note (NEGATIVE) None Note: [id number] EResponsible Observer: BILIRUBIN BILIRUBIN 300.4550 (C) Glucose Ur Strip.auto-mCnc NEGATIVE (NEGATIVE) None Note: Responsible Observer: GLUCOSE GLUC OSE 300.3850 (C) Appearance Ur See Note (CLEAR) None Note: CLEARCLEARLCLEARResponsible Observ er: APPEARANCE APPEARANCE 300.3400 (A) Color Ur See Note None Note: YELLOWYELLOWLYELLOWResponsible Obs erver: COLOR COLOR 300.3330 (A) Leukocyte esterase Ur Ql Strip See Note (NEGATIVE) None Note: [id number]@DO MICR O!!!!A Culture has been added to this specimen per established criteriaResponsible Observer: LEUKOCYTES LEUKOCYTES 300.3576 (C) Nitrite Ur Ql Strip See Note (NEGATIVE) None Note: [id number] EResponsible Observer: NITRITE NITRITE 300.3652 (B) pH [...] are final unless otherwise noted. Urine culture [facility] Ordered by Cat Gutierrez [facility] on 08/01/2020 Collected: 08/01/2020 Reported: 08/02/2020 07:41 Urine culture result See Note None Note: Greater than 100,000 CFU/MLLactoba cilli no senst done NOTES See Note None Note: @08/01/20 0101: Urine culture adde d. RFLXG = CULT.ADD. Reviewed by Cat Gutierrez [facility] on 08/02; All test results are final unless otherwise noted. Reported Physicians [facility] Ordered by Cat Gutierrez [facility] on 08/01/2020 Collected: 08/01/2020 Reported: 08/02/2020 07:41 Reported Physicians See Note None Note: Reported Physicians:Ordering: Cristino FerreiraAttending: Jos Rivas To: Maya Barron Reviewed by Cat Gutierrez [facility] on 08/02; All test results are final unless otherwise noted. ADD ON MICROSCOPIC [facility] Ordered by Cat Gutierrez [facility] on 08/01/2020 Collected: 08/01/2020 Reported: 08/01/2020 01:01 ADD ON MICROSCOPIC See Note (0-5) None Note: NOTES OTHER/NOT INTERPRETED Bacteria UrnS Ql Micro MODERATE AMOUNT Bacteria UrnS Ql Micro MODERATE AMOUNT Bacteria UrnS Ql Micro L Bacteria UrnS Ql Micro Bacteria UrnS Ql Micro Bacteria UrnS Ql Micro Bacteria UrnS Ql Micro [id number] Bacteria UrnS Ql Micro Bacteria UrnS Ql [...] are final unless otherwise noted. Reported Physicians [facility] Ordered by Cat Gutierrez RPA on 08/01/2020 Collected: 08/01/2020 Reported: 08/01/2020 01:01 Reported Physicians See Note None Note: Reported Physicians:Ordering: Aj Ferreiraending: Jos Rivas To: Maya Barron Reviewed by Cat Gutierrez RPA on 08/01; All test results are final unless otherwise noted. BHCG, QUANTITATIVE [facility] Ordered by Cat Gutierrez RPA on 07/31/2020 Collected: 07/31/2020 Reported: 07/31/2020 16:53 B-HCG [facility] [address] MilliInternationalUnitsPerMilliLiter_[Arbitrary_Con (0-10) H (High) Note: @Instrument will [...] are final unless otherwise noted. Reported Physicians [facility] Ordered by Cat Gutierrez RPA on 07/31/2020 Collected: 07/31/2020 Reported: 07/31/2020 16:53 Reported Physicians See Note None Note: Reported Physicians:Ordering: Atte nding: Cat Gutierrez Reviewed by Cat Gutierrez RPA on 08/01; All test results are final unless otherwise noted. UA W/ CULTURE IF ABNORMAL [facility] Ordered by Cat Gutierrez RPA on 07/27/2020 Collected: 07/27/2020 Reported: 07/27/2020 21:36 Urobilinogen Ur Ql See Note (0.2-1 EU/dl) None Note: 0.2 EU/dl0.2 EU/ejN91484516521.2 E U/dlResponsible Observer: UROBILINOGEN UROBILINOGEN 300.4500 (C) RBC # Ur Strip NEGATIVE (NEGATIVE) None Note: Responsible Observer: BLOOD BLOOD 300.4652 (C) Prot Ur Ql Strip See Note (NEGATIVE) None Note: [id number] EResponsible Observer: PROTEIN PROTEIN 300.3750 (C) Ketones Ur Ql Strip See Note (NEGATIVE) None Note: [id number] EResponsible Observer: KETONE KETONE 300.3900 (C) Bilirub Ur Ql Strip.auto See Note (NEGATIVE) None Note: [id number] EResponsible Observer: BILIRUBIN BILIRUBIN 300.4550 (C) Glucose Ur Strip.auto-mCnc NEGATIVE (NEGATIVE) None Note: Responsible Observer: GLUCOSE GLUC OSE 300.3850 (C) Appearance Ur See Note (CLEAR) None Note: CLEARCLEARLCLEARResponsible Observ er: APPEARANCE APPEARANCE 300.3400 (A) Color Ur See Note None Note: YELLOWYELLOWLYELLOWResponsible Obs erver: COLOR COLOR 300.3330 (A) Leukocyte esterase Ur Ql Strip See Note (NEGATIVE) None Note: [id number]@DO MICR O!!!!A Culture has been added to this specimen per established criteriaResponsible Observer: LEUKOCYTES LEUKOCYTES 300.3576 (C) Nitrite Ur Ql Strip See Note (NEGATIVE) None Note: [id number] EResponsible Observer: NITRITE NITRITE 300.3652 (B) pH [...] are final unless otherwise noted. Urine culture [facility] Ordered by Cat [facility] on 07/27/2020 Collected: 07/27/2020 Reported: 07/29/2020 07:36 Urine culture result 50,000 CFU/ML Lactobacilli no senst done None NOTES See Note None Note: @07/27/202136: Urine culture adde d. RFLXG = CULT.ADD. Reviewed by Cat [facility] on 07/31; All test results are final unless otherwise noted. Reported Physicians [facility] Ordered by [facility] on 07/27/2020 Collected: 07/27/2020 Reported: 07/29/2020 07:37 Reported Physicians See Note None Note: Reported Physicians:Ordering: Daquan BustamanteAttending: Daquan GoodCopyifan To: Maya Barron Reviewed by [facility] on 07/31; All test results are final unless otherwise noted. ADD ON MICROSCOPIC [facility] Ordered by [facility] on 07/27/2020 Collected: 07/27/2020 Reported: 07/27/2020 21:36 ADD ON MICROSCOPIC See Note (0-5) None Note: NOTES OTHER/NOT INTERPRETED Bacteria UrnS Ql Micro SMALL AMOUNT Bacteria UrnS Ql Micro SMALL AMOUNT Bacteria UrnS Ql Micro L Bacteria UrnS Ql Micro Bacteria UrnS Ql Micro Bacteria UrnS Ql Micro Bacteria UrnS Ql Micro [id number] Bacteria UrnS Ql Micro Bacteria UrnS Ql [...] are final unless otherwise noted. Reported Physicians [facility] Ordered by Cat Gutierrez RPA on 07/27/2020 Collected: 07/27/2020 Reported: 07/27/2020 21:37 Reported Physicians See Note None Note: Reported Physicians:Ordering: Daquan BustamanteAttending: Daquan GoodCopyifan To: Maya Barron Reviewed by Cat Gutierrez RPA on 07/28; All test results are final unless otherwise noted. [facility] Ordered by Cat Gutierrez RPA [...] 50,000 3RD TRIMESTER 1,000 - 50,000Responsible Observer: [facility] [place] [facility], QUANTITATIVE 600.5006 (G) Reviewed by Cat Gutierrez RPA on 07/28; All test results are final unless otherwise noted. Reported Physicians [facility] Ordered by Cat Gutierrez RPA on 07/27/2020 Collected: 07/27/2020 Reported: 07/27/2020 22:08 Reported Physicians See Note None Note: Reported Physicians:Ordering: Daquan BustamanteAttending: Ariella Good To: Maya Barron Reviewed by Cat Gutierrez RPA on 07/28; All test results are final unless otherwise noted. CMP [facility] Ordered by Cat Gutierrez RPA [...] are final unless otherwise noted. Reported Physicians [facility] Ordered by Cat Gutierrez RPA on 07/27/2020 Collected: 07/27/2020 Reported: 07/27/2020 20:37 Reported Physicians See Note None Note: Reported Physicians:Ordering: Daquan BustamanteAttending: Daquan GoodCopyifan To: Maya Barron Reviewed by Cat Gutierrez [facility] on 07/28; All test results are final unless otherwise noted. Type and Screen [facility] Ordered by Cat Gutierrez [facility] on 07/27/2020 Collected: 07/27/2020 Reported: [...] give date): N Reviewed by Cat Gutierrez [facility] on 07/28; All test results are final unless otherwise noted. Reported Physicians [facility] Ordered by Cat Gutierrez [facility] on 07/27/2020 Collected: 07/27/2020 Reported: 07/27/2020 20:48 Reported Physicians See Note None Note: Reported Physicians:Ordering: Daquan BustamanteAttending: Daquan GoodCopyifan To: Maya Barron Reviewed by Cat Gutierrez [facility] on 07/28; All test results are final unless otherwise noted. CBC W AUTO DIFF [facility] Ordered by Cat Gutierrez [facility] on 07/27/2020 Collected: 07/27/2020 Reported: [...] Auto See Note (0-2) N (Normal) Note: [id number] Ob counter server: IG% IG% 100.1375 (B) [...] are final unless otherwise noted. Reported Physicians [facility] Ordered by Cat Gutierrez RPA on 07/27/2020 Collected: 07/27/2020 Reported: 07/27/2020 20:11 Reported Physicians See Note None Note: Reported Physicians:Ordering: Daquan BustamanteAttending: Ariella Good To: Maya Barron Reviewed by Cat Gutierrez RPA on 07/28; All test results are final unless otherwise noted. BHCG, QUANTITATIVE [facility] Ordered by Maya Barron MD on 07/26/2020 Collected: 07/26/2020 Reported: 07/26/2020 16:48 B-HCG [facility] [address] MilliInternationalUnitsPerMilliLiter_[Arbitrary_Con (0-10) H (High) [...] are final unless otherwise noted. Reported Physicians [facility] Ordered by Maya Barron MD on 07/26/2020 Collected: 07/26/2020 Reported: 07/26/2020 16:48 Reported Physicians See Note None Note: Reported Physicians:Ordering: Maya AlvarengaAttending: Maya Barron Reviewed by Maya Barron MD on 07/27; All test results are final unless otherwise noted. Extended hours FLU/COV2 NAAT [facility] Ordered by Bandar Cleveland PA-C on 07/25/2020 Collected: 07/25/2020 Reported: 07/25/2020 18:47 Extended hours FLU/COV2 NAAT See Note None Note: TNPNo Reportable ResultLTNPNo Repo rtable [id number] Reviewed by Bandar Cleveland PA-C on ; All test results are final unless otherwise noted. Reported Physicians [facility] Ordered by Badnar Cleveland PA-C on 07/25/2020 Collected: 07/25/2020 Reported: 07/25/2020 18:47 Reported Physicians See Note None Note: Reported Physicians:Ordering: Connie Wilsonttending: Kami Cleveland To: Health, Public Reviewed by Bandar Cleveland PA-C on 1; All test results are final unless otherwise noted. Sweta Raquel SARS/FLU [facility] Ordered by Bandar Cleveland PA-C on 07/25/2020 Collected: 07/25/2020 Reported: 07/25/2020 18:47 Sweta Raquel SARS/FLU See Note None Note: Sweta Raquel is a rapid, automated q ualitative anddifferentiation of Influenza type A,B and EBIE-JYR-3RSIW-RT-PCR testNORMAL VALUE IS "NOT DETECTED".Limitations of the sweta raquel Influenza A/B & TDJU-GUO-7tnbdi method.Modifications to manufacturers recommendation and proceduresmay alter performance of the test.Negative results do not preclude Influenza A,B or SARS- MET8ailbovewuf and should not be used as the [...] out diseases caused by other bacterialor viral pathogens.90365-5CMXR-JeL-5 RNA Resp Ql ТАТЬЯНА+probeLNNOSNo O rganisms [id number] Organisms Detected Reviewed by Bandar Cleveland PA-C on 1; All test results are final unless otherwise noted. Reported Physicians [facility] Ordered by Bandar Cleveland PA-C on 07/25/2020 Collected: 07/25/2020 Reported: 07/25/2020 18:47 Reported Physicians See Note None Note: Reported Physicians:Ordering: Connie Wilsonttending: Kami Cleveland To: Health, Public Reviewed by Bandar Cleveland PA-C on ; All test results are final unless otherwise noted. CBC W AUTO DIFF [facility] Ordered by Maya Barron [...] Auto See Note (0-2) N (Normal) Note: [id number] Ob counter server: IG% IG% 100.1375 (B) [...] test results are final unless otherwise noted. [facility] Ordered by Maya Barron MD [...] are final unless otherwise noted. Reported Physicians [facility] Ordered by Maya Barron MD on 07/22/2020 Collected: 07/22/2020 Reported: 07/22/2020 02:00 Reported Physicians See Note None Note: Reported Physicians:Ordering: Hong LandaverdeAttending: Alon Douglas To: Maya Barron Reviewed by Maya Barron MD on 07/24; All test results are final unless otherwise noted. Extended hours FLU/COV2 NAAT [facility] Ordered by Maya Barron MD on 07/22/2020 Collected: 07/22/2020 Reported: 07/22/2020 01:29 Extended hours FLU/COV2 NAAT See Note None Note: TNPNo Reportable ResultLTNPNo Repo rtable EycghyB7GGQ Reviewed by Maya Barron MD on 07/24; All test results are final unless otherwise noted. Reported Physicians [facility] Ordered by Maya Barron MD on 07/22/2020 Collected: 07/22/2020 Reported: 07/22/2020 01:29 Reported Physicians See Note None Note: Reported Physicians:Ordering: Hong LandaverdeAttending: Alon Douglas To: Maya Barron Reviewed by Maya Barron MD on 07/24; All test results are final unless otherwise noted. Sweta Raquel SARS/FLU [facility] Ordered by Maya Barron MD on 07/22/2020 Collected: 07/22/2020 Reported: 07/22/2020 01:29 Sweta Raquel SARS/FLU See Note None Note: Sweta Raquel is a rapid, automated q ualitative anddifferentiation of Influenza type A,B and IVWA-LYO-1CCLB-RT-PCR testNORMAL VALUE IS "NOT DETECTED".Limitations of the sweta raquel Influenza A/B & CRZA-PEN-4epkjn method.Modifications to manufacturers recommendation and proceduresmay alter performance of the test.Negative results do not preclude Influenza A,B or SARS- HDS8jjzrbgqxne and should not be used as the [...] out diseases caused by other bacterialor viral pathogens.99733-5LUZH-MhG-5 RNA Resp Ql ТАТЬЯНА+probeLNNOSNo O rganisms [id number] Organisms Detected Reviewed by Maya Barron MD on 07/24; All test results are final unless otherwise noted. Reported Physicians [facility] Ordered by Maya Barron MD on 07/22/2020 Collected: 07/22/2020 Reported: 07/22/2020 01:29 Reported Physicians See Note None Note: Reported Physicians:Ordering: Dominic Landaverdeending: Alon Douglas To: Maya Barron Reviewed by Maya Barron MD on 07/24; All test results are final unless otherwise noted. UA W/ CULTURE IF ABNORMAL [facility] Ordered by Maya Barron MD on 07/22/2020 Collected: 07/22/2020 Reported: 07/22/2020 01:10 Urobilinogen Ur Ql See Note (0.2-1 EU/dl) None Note: 0.2 EU/dl0.2 EU/glY04352021362.2 E U/dlResponsible Observer: UROBILINOGEN UROBILINOGEN 300.4500 (C) RBC # Ur Strip NEGATIVE (NEGATIVE) None Note: Responsible Observer: BLOOD BLOOD 300.4652 (C) Prot Ur Ql Strip See Note (NEGATIVE) None Note: [id number] EResponsible Observer: PROTEIN PROTEIN 300.3750 (C) Ketones Ur Ql Strip See Note (NEGATIVE) None Note: [id number] EResponsible Observer: KETONE KETONE 300.3900 (C) Bilirub Ur Ql Strip.auto See Note (NEGATIVE) None Note: [id number] EResponsible Observer: BILIRUBIN BILIRUBIN 300.4550 (C) Glucose Ur Strip.auto-mCnc NEGATIVE (NEGATIVE) None Note: Responsible Observer: GLUCOSE GLUC OSE 300.3850 (C) Appearance Ur See Note (CLEAR) None Note: CLEARCLEARLCLEARResponsible Observ er: APPEARANCE APPEARANCE 300.3400 (A) Color Ur See Note None Note: YELLOWYELLOWLYELLOWResponsible Obs erver: COLOR COLOR 300.3330 (A) Leukocyte esterase Ur Ql Strip See Note (NEGATIVE) None Note: [id number] EResponsible Observer: LEUKOCYTES LEUKOCYTES 300.3576 (C) Nitrite Ur Ql Strip See Note (NEGATIVE) None Note: [id number] EResponsible Observer: NITRITE NITRITE 300.3652 (B) pH [...] are final unless otherwise noted. Reported Physicians [facility] Ordered by Maya Barron MD on 07/22/2020 Collected: 07/22/2020 Reported: 07/22/2020 01:11 Reported Physicians See Note None Note: Reported Physicians:Ordering: Hong LandaverdeAttending: Alon Douglas To: Maya Barron Reviewed by Maya Barron MD on 07/24; All test results are final unless otherwise noted. Urine culture [facility] Ordered by Maya Barron MD on 07/19/2020 Collected: 07/19/2020 Reported: 07/21/2020 07:48 Bacteria Ur Cult See Note None Note: NGNo growth.L1NG Reviewed by Maya Barron MD on 07/21; All test results are final unless otherwise noted. Reported Physicians [facility] Ordered by Maya Barron MD on 07/19/2020 Collected: 07/19/2020 Reported: 07/21/2020 07:49 Reported Physicians See Note None Note: Reported Physicians:Ordering: Maya AlvarengaAttending: Maya Barron Reviewed by Maya Barron MD on 07/21; All test results are final unless otherwise noted. BHCG, QUANTITATIVE [facility] Ordered by Maya Barron [...] are final unless otherwise noted. Reported Physicians [facility] Ordered by Maya Barron MD on 07/17/2020 Collected: 07/17/2020 Reported: 07/17/2020 12:40 Reported Physicians See Note None Note: Reported Physicians:Ordering: Bia Alvarenga: Maya Barron Reviewed by Maya Barron MD on 07/17; All test results are final unless otherwise noted. CUEVAS COVID-19 [facility] Ordered by [...] molecular test, if the virus mutates in [facility], Covid-19 may not be detected or may bedetected less predictably.ID NOW COVID-19 is intended for testing a swab directlywithout elution in viral transport media as dilution willresult in decreased detection of low positive samples thatare near the limit of detection of the test.SWAB SAMPLES ELUTED IN VTM ARE NOT APPROPRIATE FOR USE INTHIS TEST.NOSNo Organisms [id number] Organisms Detected Reviewed by Maya Barron MD on 05/31; All test results are final unless otherwise noted. Reported Physicians [facility] Ordered by Maya Barron MD on 05/31/2020 Collected: 05/31/2020 Reported: 05/31/2020 07:08 Reported Physicians See Note None Note: Reported Physicians:Ordering: Johnny HernándezAttending: Suzanne Cazares To: Maya Barron Reviewed by Maya Barron MD on 05/31; All test results are final unless otherwise noted. BHCG, QUANTITATIVE [facility] Ordered by Maya Barron MD on 05/26/2020 Collected: 05/26/2020 Reported: 05/26/2020 14:49 B-HCG [facility] [address]68 MilliInternationalUnitsPerMilliLiter_[Arbitrary_Con (0-10) H (High) Note: @Instrument will [...] are final unless otherwise noted. Reported Physicians [facility] Ordered by Maya Barron MD on 05/26/2020 Collected: 05/26/2020 Reported: 05/26/2020 14:50 Reported Physicians See Note None Note: Reported Physicians:Ordering: Maya AlvarengaAttending: Maya Barron Reviewed by Maya Barron MD on 05/26; All test results are final unless otherwise noted. URINALYSIS [facility] Ordered by Maya Barron MD on 05/23/2020 Collected: 05/23/2020 Reported: 05/23/2020 17:19 Urobilinogen Ur Ql See Note (0.2-1 EU/dl) None Note: 0.2 EU/dl0.2 EU/[id number] E U/dlResponsible Observer: UROBILINOGEN UROBILINOGEN 300.4500 (C) RBC # Ur Strip NEGATIVE (NEGATIVE) None Note: Responsible Observer: BLOOD BLOOD 300.4650 (C) Prot Ur Ql Strip See Note (NEGATIVE) None Note: [id number] EResponsible Observer: PROTEIN PROTEIN 300.3750 (C) Ketones Ur Ql Strip See Note (NEGATIVE) None Note: [id number] EResponsible Observer: KETONE KETONE 300.3900 (C) Bilirub Ur Ql Strip.auto See Note (NEGATIVE) None Note: [id number] EResponsible Observer: BILIRUBIN BILIRUBIN 300.4550 (C) Glucose Ur Strip.auto-mCnc NEGATIVE (NEGATIVE) None Note: Responsible Observer: GLUCOSE GLUC OSE 300.3850 (C) Appearance Ur See Note (CLEAR) None Note: CLEARCLEARLCLEARResponsible Observ er: APPEARANCE APPEARANCE 300.3400 (A) Color Ur See Note None Note: YELLOWYELLOWLYELLOWResponsible Obs erver: COLOR COLOR 300.3300 (A) Leukocyte esterase Ur Ql Strip See Note (NEGATIVE) None Note: [id number] EResponsible Observer: LEUKOCYTES LEUKOCYTES 300.3575 (C) Nitrite Ur Ql Strip See Note (NEGATIVE) None Note: [id number] EResponsible Observer: NITRITE NITRITE 300.3650 (B) pH [...] are final unless otherwise noted. Urine culture [facility] Ordered by Maya Barron MD on 05/23/2020 Collected: 05/23/2020 Reported: 05/24/2020 09:24 Bacteria Ur Cult See Note None Note: NGNo growth.L1NG Reviewed by Maya Barron MD on 05/29; All test results are final unless otherwise noted. MEDMATCH [facility] Ordered by Maya Barron MD on 05/23/2020 Collected: 05/23/2020 Reported: 05/26/2020 17:09 MEDMATCH 1.000 (> or = 1.003) None Note: Responsible Observer: MEDMATCH MED MATCH [phone] ([facility]) Reviewed by Maya Barron MD on 05/29; All test results are final unless otherwise noted. Reported Physicians [facility] Ordered by Maya Barron MD on 05/23/2020 Collected: 05/23/2020 Reported: 05/26/2020 17:09 Reported Physicians See Note None Note: Reported Physicians:Ordering: Maya AlvarengaAttending: Maya Barron Reviewed by Maya Barron MD on 05/29; All test results are final unless otherwise noted. Varicella-Zoster IgG Antibody [facility] Ordered by Maya Barron [...] Antibody Immunity Screen, ACIF.THIS TEST WAS PERFORMED AT:[id number] [address]WFXHSI ME RATI,MDResponsible Observer: VARICELLA IGG Varicella-Zoster IgG Antibody [id number] 028.9083 ([facility]) NOTES See Note None Note: Patient Street Address: [facility] [address] City: [place] Zip Code: [address] Reviewed by Maya Barron MD on 05/26; All test results are final unless otherwise noted. Reported Physicians [facility] Ordered by Maya Barron MD on 05/23/2020 Collected: 05/23/2020 Reported: 05/25/2020 17:11 Reported Physicians See Note None Note: Reported Physicians:Ordering: Maya AlvarengaAttending: Maya Barron Reviewed by Maya Barron MD on 05/26; All test results are final unless otherwise noted. CBC [facility] Ordered by Maya Barron [...] Auto See Note (0-2) N (Normal) Note: [id number] Ob counter server: IG% IG% 100.1375 (B) [...] test results are final unless otherwise noted. [facility] Ordered by Maya Barron MD on 05/23/2020 Collected: 05/23/2020 Reported: 05/23/2020 18:38 TSH SerPl DL<=0.005 mIU/L-aCnc 1.87 MicroInternationalUnitsPerMilliLiter_[Arbitrary_Con (0.35-5. 50) N (Normal) Note: Responsible Observer: TSH TSH 600 .7055 (D) Reviewed by Maya Barron MD on 05/29; All test results are final unless otherwise noted. Lead (Venous) Wh.Bld [facility] Ordered by Maya Barron MD on 05/23/2020 Collected: 05/23/2020 Reported: 05/25/2020 17:11 Lead Bld-sCnc <1 (<5) None Note: See Note 1Note 1This test was faith granados and its analytical performancecharacteristics have been determined by [employer]. It has not been cleared or approved by theA. This assay has been validated pursuant to the CLIAregulations and is used for clinical purposes.THIS TEST WAS PERFORMED AT:[id number] [address]YYUURY MERATI,MDResponsible Observer: Lead, WB Lead, Whole Blood [id number] 911.2300 ([facility]) NOTES See Note None Note: Patient Street Address: [facility] [address]Patient City: [place] State: [place] Zip Code: [address] Reviewed by Maya Barron MD on 05/29; All test results are final unless otherwise noted. ncPN REF [facility] Ordered by Maya Barron MD on 05/23/2020 Collected: 05/23/2020 Reported: 05/27/2020 20:54 T pallidum Ab Ser Ql Aggl See Note (Nonreactive) None Note: [id number] onreactiveResponsible Observer: TP-PA Treponema pallidum Ab (TP-PA) [id number] 906.0281 ([facility]) HIV1 RNA SerPl Ql ТАТЬЯНА+probe See Note None Note: TNPNo Reportable ResultLTNPNo Repo rtable ResultLLEP.LIVENTNPResponsible Observer: HIV 1 RNA, QL T HIV 1 RNA, QL TMA [id number] 908.0254 ([facility]) HBV surface Ag SerPl Ql IA See Note (NON-REACTIVE) None Note: [id number] 0NON-REACTIVEResponsible Observer: HBSAG Hepatitis B Surface Antigen 33877317 910.2004 ([facility]) RUBV IgG SerPl IA-aCnc 1.80 None Note: Index Interpretatio n ----- <0.90 Not consistent with Immunity 0.90-0.99 Equivocal > or = 1.00 Consistent with ImmunityThe presence of rubella IgG antibody suggestsimmunization or past or current infection withrubella virus.THIS TEST WAS PERFORMED AT:[id number] [address]NLCLLW MERATI,MDResponsible Observer: Rubella IgG Ab Rubella IgG Ab [id number] 911.2840 ([facility]) HIV1 Ab SerPlBld Ql IA.rapid See Note None Note: TNPNo Reportable ResultLTNPNo Repo rtable ResultLLEP.LIVENTNPResponsible Observer: HIV 1 AB HIV 1 AB [id number] 908.0250 ([facility]) HBsAg Confirmation See Note None Note: TNPNo Reportable ResultLTNPNo Repo rtable ResultLLEP.LIVENTNPResponsible Observer: HBsAg Confirm HBsAg Confirmation [id number] 910.2006 ([facility]) HIV (1&2) Screen, 4th Gen [...] for this purpose.For additional information please refer tohttp://education.[employer]/faq/DUD877(This link is being provided for informational/educational purposes only.)The performance of this assay has not been clinicallyvalidated in patients less than 2 years old.Responsible Observer: HIV ABS HIV (1&2) Screen, 4th Gen [id number] 908.1498 ([facility]) Reviewed by Maya Barron MD on 05/29; All test results are final unless otherwise noted. Reported Physicians [facility] Ordered by Maya Barron MD on 05/23/2020 Collected: 05/23/2020 Reported: 05/27/2020 20:54 Reported Physicians See Note None Note: Reported Physicians:Ordering: Maya AlvarengaAttending: Maya Barron Reviewed by Maya Barron MD on 05/29; All test results are final unless otherwise noted. HCV RFX ТАТЬЯНА [facility] Ordered by Maya Barron MD on 05/23/2020 Collected: 05/23/2020 Reported: 05/25/2020 17:11 HCV Ab Ser Ql See Note (NON-REACTIVE) None Note: [id number] 7NON-REACTIVEResponsible Observer: HEP C ANTIBODY Hepatitis C Antibody [id number] 914.8305 ([facility]) HCV RNA Qualitative (ТАТЬЯНА) 0.59 (<1.00) None Note: HCV antibody was non-reactive. The re is no laboratoryevidence of HCV infection.In most cases, no further action is required. However,if recent HCV exposure is suspected, a test for HCV RNA(test code 97426) is suggested.For additional information please refer tohttp://education.[employer]/faq/HFC00x1(This link is being provided for informational/educational purposes only.)THIS TEST WAS PERFORMED AT:[id number] [address]CLAUDY ONEILLesponsible Observer: SIG TO C/O SIGNAL TO CUTOFF [id number] 914.8335 ([facility]) NOTES See Note None Note: Patient Street Address: [facility] [address] City: [place] State: [place] Zip Code: [address] Reviewed by Maya Barron MD on 05/26; All test results are final unless otherwise noted. Reported Physicians [facility] Ordered by Maya Barron MD on 05/23/2020 Collected: 05/23/2020 Reported: 05/25/2020 17:11 Reported Physicians See Note None Note: Reported Physicians:Ordering: Cara Alvarengaending: Maya Barron Reviewed by Maya Barron MD on 05/26; All test results are final unless otherwise noted. Type and Screen [facility] Ordered by Maya Barron [...] are final unless otherwise noted. Reported Physicians [facility] Ordered by Maya Barron MD on 05/23/2020 Collected: 05/23/2020 Reported: 05/23/2020 19:32 Reported Physicians See Note None Note: Reported Physicians:Ordering: Maya AlvarengaAttending: Maya Barron Reviewed by Maya Barron MD on 05/24; All test results are final unless otherwise noted. PROGESTERONE [facility] Ordered by Maya Barron [...] are final unless otherwise noted. Reported Physicians [facility] Ordered by Maya Barron MD on 04/27/2020 Collected: 04/27/2020 Reported: 04/27/2020 15:58 Reported Physicians See Note None Note: Reported Physicians:Ordering: Johnny HernándezAttending: Jos Castellanos To: Rubén Barron To: Cristino Castellanos Reviewed by Maya Barron MD on 04/30; All test results are final unless otherwise noted. BHCG, QUANTITATIVE [facility] Ordered by Maya Barron [...] are final unless otherwise noted. Reported Physicians [facility] Ordered by Maya Barron MD on 04/27/2020 Collected: 04/27/2020 Reported: 04/27/2020 14:40 Reported Physicians See Note None Note: Reported Physicians:Ordering: Cristino SnowAttending: Jos Castellanos To: Suzanne Cazares To: Maya Barron Reviewed by Maya Barron MD on 04/30; All test results are final unless otherwise noted. CBC W AUTO DIFF [facility] Ordered by Maya Barron [...] Auto See Note (0-2) N (Normal) Note: [id number] Ob counter server: IG% IG% 100.1375 (B) [...] test results are final unless otherwise noted. [facility] Ordered by Maya Barron MD [...] are final unless otherwise noted. Reported Physicians [facility] Ordered by Maya Barron MD on 04/25/2020 Collected: 04/25/2020 Reported: 04/25/2020 22:11 Reported Physicians See Note None Note: Reported Physicians:Ordering: Cristino FerreiraAttending: Jos Rivas To: Maya Barron Reviewed by Maya Barron MD on 04/26; All test results are final unless otherwise noted. BHCG, QUANTITATIVE [facility] Ordered by Maya Barron [...] are final unless otherwise noted. Reported Physicians [facility] Ordered by Maya Barron MD on 04/25/2020 Collected: 04/25/2020 Reported: 04/25/2020 22:11 Reported Physicians See Note None Note: Reported Physicians:Ordering: Aj Ferreiraending: Jos Rivas To: Maya Barron Reviewed by Maya Barron MD on 04/26; All test results are final unless otherwise noted. Urine culture [facility] Ordered by Maya Barron MD on 04/25/2020 Collected: 04/25/2020 Reported: 04/27/2020 04:50 Bacteria Ur Cult See Note None Note: NGNo growth.L1NG NOTES See Note None Note: @ NICOLE DATE was changed from 04/26 to 04/25/20@ by POMCY. Reviewed by Maya Barron MD on 04/30; All test results are final unless otherwise noted. Reported Physicians [facility] Ordered by Maya Barron MD on 04/25/2020 Collected: 04/25/2020 Reported: 04/27/2020 04:51 Reported Physicians See Note None Note: Reported Physicians:Ordering: Cristino FerreiraAttending: Jos Rivas To: Maya Barron Reviewed by Maya Barron MD on 04/30; All test results are final unless otherwise noted. ADD ON MICROSCOPIC [facility] Ordered by Maya Barron MD on 04/25/2020 Collected: 04/25/2020 Reported: 04/25/2020 21:54 ADD ON MICROSCOPIC See Note (0-5) None Note: NOTES OTHER/NOT INTERPRETED Bacteria UrnS Ql Micro SMALL AMOUNT Bacteria UrnS Ql Micro SMALL AMOUNT Bacteria UrnS Ql Micro L Bacteria UrnS Ql Micro Bacteria UrnS Ql Micro Bacteria UrnS Ql Micro Bacteria UrnS Ql Micro [id number] Bacteria UrnS Ql Micro Bacteria UrnS Ql [...] are final unless otherwise noted. Reported Physicians [facility] Ordered by Maya Barron MD on 04/25/2020 Collected: 04/25/2020 Reported: 04/25/2020 21:54 Reported Physicians See Note None Note: Reported Physicians:Ordering: Aj Ferreiraending: Jos Rivas To: Maya Barron Reviewed by Maya Barron MD on 04/26; All test results are final unless otherwise noted. URINALYSIS [facility] Ordered by Maya Barron MD on 04/25/2020 Collected: 04/25/2020 Reported: 04/25/2020 21:54 Urobilinogen Ur Ql See Note (0.2-1 EU/dl) None Note: 0.2 EU/dl0.2 EU/[id number] E U/dlResponsible Observer: UROBILINOGEN UROBILINOGEN 300.4500 (C) RBC # Ur Strip NEGATIVE (NEGATIVE) None Note: Responsible Observer: BLOOD BLOOD 300.4650 (C) Prot Ur Ql Strip See Note (NEGATIVE) None Note: [id number] EResponsible Observer: PROTEIN PROTEIN 300.3750 (C) Ketones Ur Ql Strip See Note (NEGATIVE) None Note: [id number] EResponsible Observer: KETONE KETONE 300.3900 (C) Bilirub Ur Ql Strip.auto See Note (NEGATIVE) None Note: [id number] EResponsible Observer: BILIRUBIN BILIRUBIN 300.4550 (C) Glucose Ur Strip.auto-mCnc NEGATIVE (NEGATIVE) None Note: Responsible Observer: GLUCOSE GLUC OSE 300.3850 (C) Appearance Ur See Note (CLEAR) None Note: CLEARCLEARLCLEARResponsible Observ er: APPEARANCE APPEARANCE 300.3400 (A) Color Ur See Note None Note: YELLOWYELLOWLYELLOWResponsible Obs erver: COLOR COLOR 300.3300 (A) Leukocyte esterase Ur Ql Strip See Note (NEGATIVE) None Note: [id number]@DO MICR O!!!!Responsible Observer: LEUKOCYTES LEUKOCYTES 300.3575 (C) Nitrite Ur Ql Strip See Note (NEGATIVE) None Note: [id number] EResponsible Observer: NITRITE NITRITE 300.3650 (B) pH [...] are final unless otherwise noted. Reported Physicians [facility] Ordered by Maya Barron MD on 04/25/2020 Collected: 04/25/2020 Reported: 04/25/2020 21:54 Reported Physicians See Note None Note: Reported Physicians:Ordering: Aj Ferreiraending: Jos Rivas To: Maya Barron Reviewed by Maya Barron MD on 04/26; All test results are final unless otherwise noted. BHCG, QUANTITATIVE [facility] Ordered by Maya Barron MD on 04/18/2020 Collected: 04/18/2020 Reported: 04/18/2020 15:11 B-HCG SerPl-aCn 62 MilliInternationalUnitsPerMilliLiter_[Arbitrary_Con (0-10) H (High) Note: APPROXIMATE [...] are final unless otherwise noted. Reported Physicians [facility] Ordered by Maya Barron MD on 04/18/2020 Collected: 04/18/2020 Reported: 04/18/2020 15:11 Reported Physicians See Note None Note: Reported Physicians:Ordering: Maya AlvarengaAttending: Maya Barron Reviewed by Maya Barron MD on 04/19; All test results are final unless otherwise noted. ADD ON MICROSCOPIC [facility] Ordered by Maya Barron MD on 04/16/2020 Collected: 04/16/2020 Reported: 04/16/2020 23:51 ADD ON MICROSCOPIC See Note (0-5) None Note: NOTES OTHER/NOT INTERPRETED Bacteria UrnS Ql Micro SMALL AMOUNT Bacteria UrnS Ql Micro SMALL AMOUNT Bacteria UrnS Ql Micro L Bacteria UrnS Ql Micro Bacteria UrnS Ql Micro Bacteria UrnS Ql Micro Bacteria UrnS Ql Micro [id number] Bacteria UrnS Ql Micro Bacteria UrnS Ql [...] are final unless otherwise noted. Reported Physicians [facility] Ordered by Maya Barron MD on 04/16/2020 Collected: 04/16/2020 Reported: 04/16/2020 23:52 Reported Physicians See Note None Note: Reported Physicians:Ordering: Damon , VinodAttending: Damon, VinodCopy To: Maya Barron Reviewed by Maya Barron MD on 04/17; All test results are final unless otherwise noted. UA W/ CULTURE IF ABNORMAL [facility] Ordered by Maya Barron MD on 04/16/2020 Collected: 04/16/2020 Reported: 04/16/2020 23:51 Urobilinogen Ur Ql See Note (0.2-1 EU/dl) None Note: 0.2 EU/dl0.2 EU/[id number] E U/dlResponsible Observer: UROBILINOGEN UROBILINOGEN 300.4500 (C) RBC # Ur Strip NEGATIVE (NEGATIVE) None Note: Responsible Observer: BLOOD BLOOD 300.4652 (C) Prot Ur Ql Strip See Note (NEGATIVE) None Note: [id number] EResponsible Observer: PROTEIN PROTEIN 300.3750 (C) Ketones Ur Ql Strip See Note (NEGATIVE) None Note: [id number] ble Observer: KETONE KETONE 300.3900 (C) Bilirub Ur Ql Strip.auto See Note (NEGATIVE) None Note: [id number] EResponsible Observer: BILIRUBIN BILIRUBIN 300.4550 (C) Glucose Ur Strip.auto-mCnc NEGATIVE (NEGATIVE) None Note: Responsible Observer: GLUCOSE GLUC OSE 300.3850 (C) Appearance Ur See Note (CLEAR) None Note: CLEARCLEARLCLEARResponsible Observ er: APPEARANCE APPEARANCE 300.3400 (A) Color Ur See Note None Note: YELLOWYELLOWLYELLOWResponsible Obs erver: COLOR COLOR 300.3330 (A) Leukocyte esterase Ur Ql Strip See Note (NEGATIVE) None Note: [id number] E@DO MICRO!!!!A Culture has been added to this specimen per established criteriaResponsible Observer: LEUKOCYTES LEUKOCYTES 300.3576 (C) Nitrite Ur Ql Strip See Note (NEGATIVE) None Note: [id number] EResponsible Observer: NITRITE NITRITE 300.3652 (B) pH [...] are final unless otherwise noted. Urine culture [facility] Ordered by Maya Barron [...] are final unless otherwise noted. Reported Physicians [facility] Ordered by Maya Barron MD on 04/16/2020 Collected: 04/16/2020 Reported: 04/18/2020 06:47 Reported Physicians See Note None Note: Reported Physicians:Ordering: Damon , VinodAttending: Damon, VinodCopy To: Maya Barron Reviewed by Maya Barron MD on 04/18; All test results are final unless otherwise noted. CBC W AUTO DIFF [facility] Ordered by Maya Barron [...] Auto See Note (0-2) N (Normal) Note: 0.20.3W63025053120.2Responsible Ob counter server: IG% IG% 100.1375 (B) [...] results are final unless otherwise noted. BHCG, Lab Ordered by Maya Barron MD on [...] are final unless otherwise noted. Reported Physicians [facility] Ordered by Maya Barron MD on 04/16/2020 Collected: 04/16/2020 Reported: 04/16/2020 22:47 Reported Physicians See Note None Note: Reported Physicians:Ordering: Jose E JoseodAttending: Jose E JoseodCopy To: Maya Barron Reviewed by Maya Barron MD on 04/17; All test results are final unless otherwise noted. CMP [facility] Ordered by Maya Barron [...] are final unless otherwise noted. Reported Physicians [facility] Ordered by Maya Barron MD on 04/16/2020 Collected: 04/16/2020 Reported: 04/16/2020 22:44 Reported Physicians See Note None Note: Reported Physicians:Ordering: Damon , VinodAttending: Damon, VinodCopy To: Maya Barron Reviewed by Maya Barron MD on 04/17; All test results are final unless otherwise noted. LIPASE [facility] Ordered by Maya Barron MD on 04/16/2020 Collected: 04/16/2020 Reported: 04/16/2020 22:44 Lipase SerPl-cCnc 107 enzyme_unit_per_liter (73-393) N (Normal) Note: Responsible Observer: Lipase Lipas e 400.2310 (G) Reviewed by Maya Barron MD on 04/17; All test results are final unless otherwise noted. Reported Physicians [facility] Ordered by Maya Barron MD on 04/16/2020 Collected: 04/16/2020 Reported: 04/16/2020 22:44 Reported Physicians See Note None Note: Reported Physicians:Ordering: Damon , VinodAttending: Damon, VinodCopy To: Maya Barron Reviewed by Maya Barron MD on 04/17; All test results are final unless otherwise noted. Type and Screen [facility] Ordered by Maya Barron [...] are final unless otherwise noted. Reported Physicians [facility] Ordered by Maya Barron MD on 04/16/2020 Collected: 04/16/2020 Reported: 04/16/2020 23:09 Reported Physicians See Note None Note: Reported Physicians:Ordering: Jose E JoseodAttending: Jose E JoseodCopy To: Maya Barron Reviewed by Maya Barron MD on 04/17; All test results are final unless otherwise noted. CBC [facility] Ordered by Maya Barron MD on 04/10/[address] [place] [address], [facility] Collected: 04/10/2020 Reported: 04/11/2020 11:35 [...] test results are final unless otherwise noted. [facility] Ordered by Maya Barron MD on 04/10/[address] [place] [address], [id number] Collected: 04/10/2020 Reported: 04/11/2020 11:35 tel : [...] Ordered by Maya Barron MD on 04/10/[address] [place] [address], [phone] Collected: 04/10/2020 Reported: 04/11/2020 11:35 tel :[phone] ext. 1500 TSH 1.336 uIu/mL (0.5-5.8) None Note: Responsible Observer: AW Reviewed by Maya Barron MD on 04/12; All test results are final unless otherwise noted. -[facility] Ordered by Maya Barron MD on 02/25/2020 Collected: 02/25/2020 Reported: 02/28/2020 15:53 C trach rRNA XXX Ql ТАТЬЯНА+probe See Note (NOT DETECTED) None Note: NOT DETECTEDNOT DETECTEDLNOT DETEC TEDNOT [id number] DETECTEDResponsible Observer: C.Trach RNA Chlamydia trachomatis DNA-ТАТЬЯНА 24308750 913.9900 ([facility]) N gonorrhoea rRNA XXX Ql ТАТЬЯНА+probe See Note (NOT DETECTED) None Note: NOT DETECTEDNOT DETECTEDLNOT DETEC TEDNOT [id number] DETECTEDResponsible Observer: GC RNA Neisseria gonorrhoeae DNA -ТАТЬЯНА 11087463 913.9905 ([facility]) Chlamydia/GC DNA Note SEE NOTE None Note: The analytical performance charact eristics of thisassay, when used to test SurePath(TM) specimens have beendetermined by [facility]. The modifications havenot been cleared or approved by the FDA. This assay hasbeen validated pursuant to the CLIA regulations and isused for clinical purposes.For additional information, please refer tohttps://education.[employer]/faq/HOG772(This link is being provided for information/educational purposes only.)THIS TEST WAS PERFORMED AT:[id number] [address]CLAUDY ONEILLesponsible Observer: GC/Chlam Note Chlamydia/GC DNA Note [id number] 913.9907 (A) NOTES See Note None Note: Source Of Specimen: URINE Reviewed by Maya Barron MD on 02/28; All test results are final unless otherwise noted. Reported Physicians [facility] Ordered by Maya Barron MD on 02/25/2020 Collected: 02/25/2020 Reported: 02/28/2020 15:54 Reported Physicians See Note None Note: Reported Physicians:Ordering: Cara Alvarengaending: Maya Barron Reviewed by Maya Barron MD on 02/28; All test results are final unless otherwise noted. Urine culture-[facility] Ordered by Maya Barron MD on 02/25/2020 Collected: 02/25/2020 Reported: 02/26/2020 13:38 Urine culture result No growth None Reviewed by Maya Barron MD on 02/27; All test results are final unless otherwise noted. Reported Physicians [facility] Ordered by Maya Barron MD on 02/25/2020 Collected: 02/25/2020 Reported: 02/26/2020 13:39 Reported Physicians See Note None Note: Reported Physicians:Ordering: Maya AlvarengaAttending: Maya Barron Reviewed by Maya Barron MD on 02/27; All test results are final unless otherwise noted. Test Office Lab Ordered by Maya Barron MD on 02/25/[address] [place] [address], [phone] Specimen Source: Urine Collected: 02/25/2020 Reporte d: 02/25/2020 11:15 tel:[phone] Urine HCG neg (negative) N (Normal) Reviewed by Maya Barron MD on 02/24; All test results are final unless otherwise noted. Urinalysis w/out microscopy Office Lab Ordered by Maya Barron MD on 02/25/[address] [place] [address], [phone] Specimen Source: Urine Collected: 02/25/2020 Reporte d: 02/25/2020 11:02 tel:[phone] bilirubin neg (neg) N (Normal) blood neg [...] otherwise noted. UA W/ CULTURE IF ABNORMAL [facility] Ordered by Maya Barron MD on 01/29/2020 Collected: 01/29/2020 Reported: 01/29/2020 00:22 Urobilinogen Ur Ql See Note (0.2-1 EU/dl) None Note: 1 EU/dl1 EU/dlL1 EU/dl1 EU/eeK8422 5000076 EU/dlResponsible Observer: UROBILINOGEN UROBILINOGEN 300.4500 (C) RBC # Ur Strip NEGATIVE (NEGATIVE) None Note: Responsible Observer: BLOOD BLOOD 300.4652 (C) Prot Ur Ql Strip See Note (NEGATIVE) None Note: NEGATIVENEGATIVELNEGATIVENEGATIVEL [id number] Observer: PROTEIN PROTEIN 300.3750 (C) Ketones Ur Ql Strip See Note (NEGATIVE) None Note: 15 mg/dL15 mg/dLL15 mg/dL15 mg/dLL 908369669693 mg/dLResponsible Observer: KETONE KETONE 300.3900 (C) Bilirub Ur Ql Strip.auto See Note (NEGATIVE) None Note: NEGATIVENEGATIVELNEGATIVENEGATIVEL [id number] Observer: BILIRUBIN BILIRUBIN 300.4550 (C) Glucose Ur Strip.auto-mCnc NEGATIVE (NEGATIVE) None Note: Responsible Observer: GLUCOSE GLUC OSE 300.3850 (C) Appearance Ur See Note (CLEAR) None Note: CLEARCLEARLCLEARCLEARLCLEARRespons ible Observer: APPEARANCE APPEARANCE 300.3400 (A) Color Ur See Note None Note: YELLOWYELLOWLYELLOWYELLOWLYELLOWRe sponsible Observer: COLOR COLOR 300.3330 (A) Leukocyte esterase Ur Ql Strip See Note (NEGATIVE) None Note: NEGATIVENEGATIVELNEGATIVENEGATIVEL [id number] Observer: LEUKOCYTES LEUKOCYTES 300.3576 (C) Nitrite Ur Ql Strip See Note (NEGATIVE) None Note: NEGATIVENEGATIVELNEGATIVENEGATIVEL 4846888107DPNXIQBIWibugstyfcl Observer: NITRITE NITRITE 300.3652 (B) pH Ur [...] are final unless otherwise noted. Reported Physicians [facility] Ordered by Maya Barron MD on 01/29/2020 Collected: 01/29/2020 Reported: 01/29/2020 00:22 Reported Physicians See Note None Note: Reported Physicians:Ordering: Yoli NapolesAttending: Charles Silva To: Maya Barron Reviewed by Maya Barron MD on 01/30; All test results are final unless otherwise noted. BHCG,SERUM QUALITATIVE [facility] Ordered by Maya Barron MD on 01/28/2020 Collected: 01/28/2020 Reported: 01/28/2020 22:58 HCG SerPl-sCnc NEGATIVE (NEGATIVE) None Note: @Reenter manual test result: NEGAT LAYA@by Sybil Whatley at 01/28/20 1288.Responsible Observer: BHCG SERUM BHCG SERUM 800.0900 (A) NOTES See Note None Note: @ DID THE CONTROL BAND APPEAR? YES @ DID THE BACKGROUND CLEAR? YES Reviewed by Maya Barron MD on 01/30; All test results are final unless otherwise noted. Reported Physicians [facility] Ordered by Maya Barron MD on 01/28/2020 Collected: 01/28/2020 Reported: 01/28/2020 22:58 Reported Physicians See Note None Note: Reported Physicians:Ordering: Yoli NapolesAttending: Charles Silva To: Maya Barron Reviewed by Maya Barron MD on 01/30; All test results are final unless otherwise noted. CBC W AUTO DIFF [facility] Ordered by Maya Barron [...] Auto See Note (0-2) N (Normal) Note: [id number] ible Observer: IG% IG% 100.1375 (B) Hct [...] test results are final unless otherwise noted. [facility] Ordered by Maya Barron MD [...] are final unless otherwise noted. Reported Physicians [facility] Ordered by Maya Barron MD on 01/28/2020 Collected: 01/28/2020 Reported: 01/28/2020 23:00 Reported Physicians See Note None Note: Reported Physicians:Ordering: Cliff Napolesending: Charles Silva To: Maya Barron Reviewed by Maya Barron MD on 01/30; All test results are final unless otherwise noted. UA W/ CULTURE IF ABNORMAL [facility] Ordered by Maya Barron MD on 12/12/2019 Collected: 12/12/2019 Reported: 12/12/2019 11:22 Urobilinogen Ur Ql See Note (0.2-1 EU/dl) None Note: 1 EU/dl1 EU/dlL1 EU/dl1 EU/aqN4307 [id number] EU/dlResponsible Observer: UROBILINOGEN UROBILINOGEN 300.4500 (C) RBC # Ur Strip NEGATIVE (NEGATIVE) None Note: Responsible Observer: BLOOD BLOOD 300.4652 (C) Prot Ur Ql Strip See Note (NEGATIVE) None Note: NEGATIVENEGATIVELNEGATIVENEGATIVEL [id number] Observer: PROTEIN PROTEIN 300.3750 (C) Ketones Ur Ql Strip See Note (NEGATIVE) None Note: 15 mg/dL15 mg/dLL15 mg/dL15 mg/dLL [id number] mg/dLResponsible Observer: KETONE KETONE 300.3900 (C) Bilirub Ur Ql Strip.auto See Note (NEGATIVE) None Note: NEGATIVENEGATIVELNEGATIVENEGATIVEL [id number] Observer: BILIRUBIN BILIRUBIN 300.4550 (C) Glucose Ur Strip.auto-mCnc NEGATIVE (NEGATIVE) None Note: Responsible Observer: GLUCOSE GLUC OSE 300.3850 (C) Appearance Ur See Note (CLEAR) A (Abnormal) Note: CLOUDYCLOUDYLCLOUDYCLOUDYLCLOUDYRe sponsible Observer: APPEARANCE APPEARANCE 300.3400 (A) Color Ur See Note None Note: YELLOWYELLOWLYELLOWYELLOWLYELLOWRe sponsible Observer: COLOR COLOR 300.3330 (A) Leukocyte esterase Ur Ql Strip See Note (NEGATIVE) None Note: NEGATIVENEGATIVELNEGATIVENEGATIVEL [id number] Observer: LEUKOCYTES LEUKOCYTES 300.3576 (C) Nitrite Ur Ql Strip See Note (NEGATIVE) None Note: NEGATIVENEGATIVELNEGATIVENEGATIVEL [id number] Observer: NITRITE NITRITE 300.3652 (B) pH Ur [...] are final unless otherwise noted. Reported Physicians [facility] Ordered by Maya Barron MD on 12/12/2019 Collected: 12/12/2019 Reported: 12/12/2019 11:23 Reported Physicians See Note None Note: Reported Physicians:Ordering: Maya AlvarengaAttending: Maya Barrno Reviewed by Maya Barron MD on 12/12; All test results are final unless otherwise noted. CBC W AUTO DIFF [facility] Ordered by Maya Barron [...] Auto See Note (0-2) N (Normal) Note: [id number] ible Observer: IG% IG% 100.1375 (B) Hct [...] test results are final unless otherwise noted. [facility] Ordered by Maya Barron MD [...] are final unless otherwise noted. Reported Physicians [facility] Ordered by Maya Barron MD on 12/12/2019 Collected: 12/12/2019 Reported: 12/12/2019 11:58 Reported Physicians See Note None Note: Reported Physicians:Ordering: Maya AlvarengaAttending: Maya Barron Reviewed by Maya Barron MD on 12/12; All test results are final unless otherwise noted. Gastrointestinal Panel PCR [facility] Ordered by Maya Barron [...] OTHER EXPERTS. (E.G. GUIDELINES/POLICYSTATEMENTS PUBLISHED BY THE [employer] THE SOCIETY FOR HEALTHCARE EPIDEMIOLOGY OF [place] ANDTHE INFECTIOUS DISEASE SOCIETY OF [place]).CLOC. difficile toxin [id number]. difficile toxin detected Reviewed by Maya Barron MD on 12/12; All test results are final unless otherwise noted. Reported Physicians [facility] Ordered by Maya Barron MD on 12/12/2019 Collected: 12/12/2019 Reported: 12/12/2019 14:17 Reported Physicians See Note None Note: Reported Physicians:Ordering: Maya AlvarengaAttending: Maya Barron Reviewed by Maya Barron MD on 12/12; All test results are final unless otherwise noted. CBC W AUTO DIFF [facility] Ordered by Maya Barron [...] Auto See Note (0-2) N (Normal) Note: [id number] ible Observer: IG% IG% 100.1375 (B) Hct [...] test results are final unless otherwise noted. [facility] Ordered by Maya Barron MD [...] unless otherwise noted. Prothrombin Time & INR [facility] Ordered by Maya Barron [...] are final unless otherwise noted. Reported Physicians [facility] Ordered by Maya Barron MD on 12/07/2019 Collected: 12/07/2019 Reported: 12/07/2019 17:21 Reported Physicians See Note None Note: Reported Physicians:Ordering: Aj Snowending: Jos Castellanos To: Maya Barron Reviewed by Maya Barron MD on 12/09; All test results are final unless otherwise noted. Urinalysis w/out microscopy Office Lab Ordered by Maya Barron MD on 11/22/[address] [place] [address], [phone] Specimen Source: Urine Collected: 11/22/2019 Reporte d: [...] results are final unless otherwise noted. TROPONIN [facility] Ordered by Maya Barron [...] are final unless otherwise noted. Reported Physicians [facility] Ordered by Maya Barron MD on 11/19/2019 Collected: 11/19/2019 Reported: 11/19/2019 10:30 Reported Physicians See Note None Note: Reported Physicians:Ordering: Oscar Del Cidending: Vandana Burrows To: Maya Barron Reviewed by Maya Barron MD on 11/18; All test results are final unless otherwise noted. CBC W AUTO DIFF [facility] Ordered by Maya Barron [...] Auto See Note (0-2) N (Normal) Note: [id number] ible Observer: IG% IG% 100.1375 (B) Hct [...] are final unless otherwise noted. BHCG,SERUM QUALITATIVE [facility] Ordered by Maya Barron [...] results are final unless otherwise noted. CMP [facility] Ordered by Maya Barron [...] are final unless otherwise noted. Reported Physicians [facility] Ordered by Maya Barron MD on 11/19/2019 Collected: 11/19/2019 Reported: 11/19/2019 10:08 Reported Physicians See Note None Note: Reported Physicians:Ordering: Oscar Del Cidending: Vandana Burrows To: Maya Barron Reviewed by Maya Barron MD on 11/18; All test results are final unless otherwise noted. [facility] Ordered by Maya Barron MD on 11/15/2019 [address] [place], [address] Collected: 11/15/2019 Reported: 11/16/2019 13:40 tel : [...] test results are final unless otherwise noted. [facility] Ordered by Maya Barron MD on 11/15/[address] [place] [address], [facility] Collected: 11/15/2019 Reported: 11/16/2019 13:40 tel [...] Ordered by Maya Barron MD on 11/15/[address] [place] [address], [facility] Collected: 11/15/2019 Reported: 11/16/2019 13:40 tel : ext. [phone] TSH 2.257 uIu/mL (0.5-5.8) None Note: Responsible Observer: AW Reviewed by Maya Barron MD on 11/15; All test results are final unless otherwise noted. BHCG, QUANTITATIVE [facility] Ordered by Maya Barron [...] are final unless otherwise noted. Reported Physicians [facility] Ordered by Maya Barron MD on 11/15/2019 Collected: 11/15/2019 Reported: 11/15/2019 15:27 Reported Physicians See Note None Note: Reported Physicians:Ordering: Maya AlvarengaAttending: Maya Barron Reviewed by Maya Barron MD on 11/14; All test results are final unless otherwise noted. Urinalysis w/out microscopy Office Lab Ordered by Maya Barron MD on [address] [place] [address], [phone] Specimen Source: Urine Collected: Reported: 2020 11:41 [...] Ordered by Maya Barron MD on 12/27/[address] [place] [address], [phone] Specimen Source: Urine Collected: Reported: 2019 13:46 tel:[phone] Urine HCG negative (negative) N (Normal) Reviewed [...] weeks gestatio n of Maya Barron MD [facility], [facility] 10/31/2020 REVISIT- office visit KAYLEIGH 17 weeks gestatio n of Maya Barron MD [facility], [facility] 10/24/2020 REVISIT- office visit KAYLEIGH 16 weeks gestatio n of Maya Barron MD [facility], [facility] 10/17/2020 Holter Monitor, Physician review & interpretation only 99184 Palpitations Michel Villalba MD [facility] Outpt 10/11/2020 REVISIT- office visit KAYLEIGH 15 weeks gestatio n of Maya Barron MD [facility], [facility] 10/11/2020 REVISIT- office visit KAYLEIGH 13 weeks gestatio n of Maya Barron MD [facility], [facility] 09/27/2020 REVISIT- office visit KAYLEIGH 12 weeks gestatio n of Maya Barron MD [facility], [facility] 09/19/2020 EKG- Electrocardiogram/12 lead 12297 Chest pain, unspe cified Cat Gutierrez [facility], [facility] 09/11/2020 REVISIT- office visit KAYLEIGH 10 weeks gestatio n of Cat Gutierrez [facility], [facility] 09/05/2020 REVISIT- office visit KAYLEIGH 8 weeks gestation of Maya Barron MD [facility], [facility] 08/22/2020 Urinalysis w/o Microscopy (Distinct Seperate service-same da y) 51122 Frequency of micturition- Urinary Frequency Maya Barron MD [facility], [facility] 08/15/2020 RAPID STREP 62248 Acute pharyngitis, unspecified Maya Barron MD [facility], [facility] 08/15/2020 Initial Obstetrical Care Office Visit OB Le ss than 8 weeks gestation of Cat Gutierrez [facility], [facility] 021 Urinalysis w/o Microscopy 08781 Frequency of micturiti on- Urinary Frequency Maya Barron MD [facility], [facility] 07/19/2020 REVISIT- office visit KAYLEIGH Threatened Alicja Barron MD [facility], [facility] 05/26/2020 NO CHARGE- Nurse visit- OB establish [employer] Thr eatened , state, incidental Maya Barron MD [facility], [facility] 020 General Health Panel( CMP, CBC, TSH) 12960 Dysmenorrhe a, unspecified Maya Barron MD [facility], [facility] 04/10/2020 Brief Emotional Behavior Assessment ( add -59 mod) 79929 Screening for Mental Health/Behavioral Disorder, Unspecified Maya Barron MD [facility], [facility] 04/10/2020 Venipuncture (routine) 03359 Dysmenorrhea, unspecified Mariela Barron MD [facility], [facility] 04/10/2020 Urine Test 27475 Pelvic and perineal pain, Frequency of micturition- Urinary Frequency Maya Barron MD [facility], [facility] 02/25/2020 Urinalysis w/o Microscopy 52124 Frequency of micturiti on- Urinary Frequency Maya Barron MD [facility], [facility] 02/25/2020 Urine Test 45846 Amenorrhea, unspecified Maya Barron MD [facility], [facility] 12/27/2019 Urinalysis w/o Microscopy 32928 Right upper quadrant pain Trinity Barron MD [facility], [facility] 11/22/2019 General Health Panel( CMP, CBC, TSH) 65307 Other fatigue Alicja Barron MD [facility], [facility] 11/15/2019 Venipuncture (routine) 02247 Other fatigue Maya Barron MD [facility], [facility] 11/15/2019 Surgical History Last Updated No [...] iagnosis OB- ILL VISIT Maya Barron MD [facility], [facility] 11/03/2020 3:45PM 4:29PM , Generalized Anxie ty Disorder, Panic Disorder, Chest Pain Chronic Care Mgt - Office Visit Maya Barron MD [facility], [facility] 11/03/2020 2:37PM 3:38PM Chronic Care Mgt - Office Visit Maya Barron MD [facility], [facility] 10/31/2020 3:23PM 3:24PM Fracture of Fift h Cervical Vertebral Body, History of Psychiatric Disorders, Reactive Airway Disease REVISIT- Routine (OB) Visit Maya Barron MD [facility], [facility] 10/31/2020 9:54AM 10:24AM Chronic Care Mgt - Office Visit Maya Barron MD [facility], [facility] 10/24/2020 2:16PM 11:59PM REVISIT- Routine (OB) Visit Maya Barron MD [facility], [facility] 10/24/2020 10:00AM 10:47AM REVISIT- Routine (OB) Visit Maya Barron MD [facility], [facility] 10/17/2020 11:24AM 12:12PM Chronic Care Mgt - Office Visit Maya Barron MD [facility], [facility] 10/17/2020 11:25AM 12:11PM Fracture of Fift h Cervical Vertebral Body, History of Psychiatric Disorders, Reactive Airway Disease REVISIT- Routine (OB) Visit Maya Barron MD [facility], [facility] 10/11/2020 9:44AM 10:15AM OB- ILL VISIT Maya Barron MD [facility], [facility] 10/04/2020 2:12PM 2:31PM Presyncope Syndrome, Tachyca rdia, Palpitations, Difficulty Breathing (Dyspnea), Weeks of Gestation - 14 REVISIT- Routine (OB) Visit Maya Barron MD [facility], [facility] 09/27/2020 1:36PM 1:59PM telephone conversation Michel Villalba MD 1 09/19/2020 9:43PM 09/19/2020 11:59PM Atypical Chest Pain REVISIT- Routine (OB) Visit Maya Barron MD [facility], [facility] 09/19/2020 9:48AM 10:14AM REVISIT- Routine (OB) Visit Cat Gutierrez [facility], [facility] 09/11/2020 3:22PM 4:16PM REVISIT- Routine (OB) Visit Cat Gutierrez [facility], [facility] 09/05/2020 9:37AM 10:00AM TCMNV phone call- NO CHARGE Cat Gutierrez [facility] 09/04/2020 09/05/2020 4:54PM 09/05/2020 11:59PM [Patient Encounter] Cat Gutierrez [facility] 08/31/2020 021 2:21PM 08/22/2020 11:59PM telephone conversation Michel Villalba MD 08/2808/22/2020 11:00AM 08/22/2020 11:59PM REVISIT- Routine (OB) Visit Maya Barron MD [facility], [facility] 08/22/2020 1:56PM 2:19PM sick visit Maya Barron MD [facility], [facility] 0 08/15/2020 9:36AM 10:12AM Upper Respiratory Infection Acute, Pollakiuria Obstetrics/ first visit Cat Gutierrez [facility], [facility] 08/09/2020 9:22AM 10:56AM followup Cat Gutierrez [facility], [facility] 0 08/02/2020 10:18AM 11:42AM Generalized Anxiety Disorder , Early Stage, Abdominal Pain telephone conversation Michel Villalba MD 1 07/26/2020 7:59AM 07/26/2020 11:59PM [Patient Encounter] Cat Betzaida Gutierrez RPA 07/28/2020 021 2:20PM 07/26/2020 11:59PM followup Maya Barron MD [facility] 0 07/26/2020 10:39AM 11:02AM , Generalized Anxie ty Disorder sick visit Bandar Cleveland PA-C [facility] 3:36PM 4:30PM Pyrexia followup Maya Barron MD [facility] 0 07/19/2020 10:52AM 11:30AM , Generalized Anxie ty Disorder, Pollakiuria followup Maya Barron MD [facility] 1 09/11/2019 10:43AM 11:14AM Atypical Chest Pain, Adjustm ent Disorder followup Maya Barron MD [facility] 1 08/07/2019 10:43AM 10:59AM Missed followup Maya Barron MD [facility] 05/26 1:45PM 2:11PM with Threatened Problem visit - not contagious Maya Barron MD [facility] 05/24/2020 11:13AM 12:00PM with T hreatened [Patient Encounter] Maya Barron MD 05/24/2020 020 10:17AM 04/19/2020 11:59PM followup Maya Barron MD [facility] 1 11:51AM 12:08PM ANNUAL PE-followup Maya Barron MD [facility] 04/10/2020 8:42AM 9:13AM Routine History and Physical Adult (18 - 64 Yrs), Dysmenorrhea sick visit Maya Barron MD [facility] 0 03/06/2020 3:32PM 3:42PM Sinusitis sick visit Maya Barron MD [facility] 0 02/25/2020 10:46AM 11:12AM Pollakiuria, Female Pelvic P ain followup Maya Barron MD [facility] 01/31 2:25PM 2:51PM Back Strain followup Maya Barron MD [facility] 12/26 1:25PM 1:42PM Amenorrhea, Clostridium Difficile sick visit Maya Barron MD [facility] 0 12/07/2019 4:00PM 4:17PM Abdominal Pain sick visit Maya Barron MD [facility] 0 11/22/2019 3:13PM 3:37PM Esophageal Reflux, Abdominal Pain, Generalized Anxiety Disorder sick visit Maya Barron MD [facility] 0 11/15/2019 12:50PM 1:20PM Fatigue, Nausea, Presyncope Syndrome, Generalized Anxiety Disorder sick visit Cat Gutierrez [facility] 0 11/05/2019 11:30AM 11:49AM Atopic Dermatitis Insurance Includes: Active Insurance Policies Plan Name Member ID Group # Subscriber Relationship Effective Da greg 1 - MANAGED MEDICAID [facility] [id number] Georgiana Nguyen 2020 - Unknown Advance Directives Includes: Current Advance DirectivesNo Advance Directives Recorded Health Concerns Includes: Active Health ConcernsNo Active Health Concerns Recorded Goals Includes: Active GoalsNo Active Goals Recorded Interventions Includes: Interventions for active GoalsNo Interventions Recorded Evaluations & Outcomes Includes: Evaluations & Outcomes for active GoalsNo Outcomes Recorded
--- OUTSIDE RECORDS SUMMARY | 2021-04-29 17:06 | CCD ---
Author Author [facility] Organization [facility] Address [address] [place] [address] Phone Care Team Providers Care Director Fundraising Name Role Phone Anderson GILL, Maya Duke PP [phone] Christopher BLANCHARD, Kimberly Prajapati Unavailable Unavailable Reason [...] Provider REVISIT- Routine (OB) Visit 11/07/2020 11:45AM [facility] Maya Barron MD Findings Encounter Date Community [...] or concerns sick visit with Cat Gutierrez [facility] 10/30/2018 Assessments Includes: Assessments for all [...] surance provided today. 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 [facility], [facility] [place] on health maintenance [Encounter for general adult [...] vertebral body No Fault with [facility] 03/04/2018 Late effects of accident No Fault [...] 12 H our 11/16/2019 - 11/22/2019 Provider: Maay Barron MD Diagnosis: as directed 1 PO [...] Recorded Vital Signs Includes: Vital Signs from 11/01/2019 through 10/31/2020 Vital Name 10/31/2020 10:02A 10/24/2020 10:12A 10/17/2020 [...] 6 Vital Name 12/27/2019 01:31P 12/07/2019 04:04P 11/22/2019 03:25P 11/15/2019 01:12P 11/05/2019 11:42A Pulse Rate-Sitting (bpm) 68 75 72 74 72 Respiration Rate (breaths/min) 18 18 20 20 20 Weight (lb) 114 149 Blood Pressure Sitting (mmHg) 90/58 98/60 98/70 108/64 Temp-Oral (F) 97.6 97.6 Results Includes: Results from 11/01/2019 through 10/31/2020 [facility] Ordered by Maya Barron MD on 10/23/2020 Collected: 10/23/2020 Reported: 10/23/2020 01:21 B-HCG [facility] [id number] MilliInternationalUnitsPerMilliLiter_[Arbitrary_Con (0-10) H (High) Note: @Instrument will autodiluteAPPROXI MATE GESTATION AGE APRROXIMATE HCG RANGE 0-1 WEEK 0 - 50 1-2 WEEKS 40 - 300 2-3 WEEKS 100 - 1,000 3-4 WEEKS 500 - 6,000 1-2 MONTHS 5,000 - 200,000 2-3 MONTHS 10,000 - 100,000 2ND TRIMESTER 3,000 - 50,000 3RD TRIMESTER 1,000 - 50,000Responsible Observer: BHCG Quant [facility] Quantitative 600.5006 (G) Reviewed by Maya Barron [...] Auto See Note (0-2) N (Normal) Note: 0.30.5T80907650347.3Responsible Ob seismic observer: IG% IG% 100.1375 (B) Hct VFr [...] None Note: Reported Physicians:Ordering: Math is, TimothyAttending: Aprdo, TimothyCopy To: Maya Barron Reviewed by Maya Barron MD on 10/23; All test results are final unless otherwise noted. UA W/ CULTURE IF ABNORMAL [facility] Ordered by Maya Barron MD on 10/19/2020 Collected: 10/19/2020 Reported: 10/19/2020 16:31 Urobilinogen Ur Ql See Note (0.2-1 EU/dl) None Note: 0.2 EU/dl0.2 EU/ppP70981734351.2 E U/dlResponsible Observer: UROBILINOGEN UROBILINOGEN 300.4500 (C) RBC # Ur Strip NEGATIVE (NEGATIVE) None Note: Responsible Observer: BLOOD BLOOD 300.4652 (C) Prot Ur Ql Strip See Note (NEGATIVE) None Note: [id number] EResponsible Observer: PROTEIN PROTEIN 300.3750 (C) Ketones Ur Ql Strip See Note (NEGATIVE) None Note: [id number] EResponsible Observer: KETONE KETONE 300.3900 (C) Bilirub Ur Ql Strip.auto See Note (NEGATIVE) None Note: [id number] EResponsible Observer: BILIRUBIN BILIRUBIN 300.4550 (C) Glucose Ur Strip.auto-mCnc 100 mg/dl (NEGATIVE) None Note: Responsible Observer: GLUCOSE GLUC OSE 300.3850 (C) Appearance Ur See Note (CLEAR) None Note: CLEARCLEARLCLEARResponsible Observ er: APPEARANCE APPEARANCE 300.3400 (A) Color Ur See Note None Note: YELLOWYELLOWLYELLOWResponsible Obs erver: COLOR COLOR 300.3330 (A) Leukocyte esterase Ur Ql Strip See Note (NEGATIVE) None Note: [id number] EResponsible Observer: LEUKOCYTES LEUKOCYTES 300.3576 (C) Nitrite Ur Ql Strip See Note (NEGATIVE) None Note: [id number] EResponsible Observer: NITRITE NITRITE 300.3652 (B) pH [...] ng/mL See Note (Cutoff 25) None Note: [id number] E@Reenter manual test result: NEGATIVE@by Jia Lentz at 10/19/20 1639.Responsible Observer: PCP Urine Phencyclidine (PCP) Scrn 400.5120 (A) THC Ur Ql Scn>50 ng/mL See Note (Cutoff 50) None Note: [id number] EResponsible Observer: Marijuana (THC) Ur Marijuana (THC) Screen 400.5110 (A) Benzodiaz Ur Ql Scn See Note (Cutoff 150) None Note: [id number] E@Reenter manual test result: NEGATIVE@by Jia Lentz at 10/19/20 1640.Responsible Observer: Benzodiazepines Urine Benzodiazepines Screen 400.5170 (A) Opiates Ur Ql Scn See Note (Cutoff 100) None Note: [id number] E@Reenter manual test result: NEGATIVE@by Jia Lentz at 10/19/20 1640.Responsible Observer: Opiates Urine Opiates Screen 400.5150 (A) Tricyclics Ur Ql Scn See Note (Cutoff 300) None Note: [id number] E@Reenter manual test result: NEGATIVE@by Jia Lentz at 10/19/20 1640.Responsible Observer: TCA Ur Tricyclic Antidepressants 400.5180 (A) Cocaine Ur Ql Scn See Note (Cutoff 150) None Note: [id number] E@Reenter manual test result: NEGATIVE@by Jia Lentz at 10/19/20 1640.Responsible Observer: Cocaine Urine Cocaine Screen 400.5130 (A) Propoxyph+Nor Ur Ql Scn See Note (Cutoff 300) None Note: [id number] E@Reenter manual test result: NEGATIVE@by Jia Lentz at 10/19/20 1640.Responsible Observer: Propoxyphene Urine Propoxyphene Screen 400.5220 (A) Methadone Ur Ql Scn See Note (Cutoff 200) None Note: [id number] E@Reenter manual test result: NEGATIVE@by Jia Lentz at 10/19/20 1640.Responsible Observer: Methadone Urine Methadone Screen 400.5190 (A) Methamphet Ur Ql Scn See Note (Cutoff 500) None Note: [id number] E@Reenter manual test result: NEGATIVE@by Jia Lentz at 10/19/20 1640.Responsible Observer: Methamphetamine Urine Methamphetamines Screen 400.5140 (A) oxyCODONE Ur Ql Scn See Note (Cutoff 100) None Note: [id number] E@Reenter manual test result: NEGATIVE@by Jia Lentz at 10/19/20 1640.Responsible Observer: Oxycodone Urine Oxycodone Screen 400.5210 (A) Buprenorphine Ur Ql See Note (Cutoff 10) None Note: [id number] E@Reenter manual test result: NEGATIVE@by Jia Lentz at 10/19/20 1640.Responsible Observer: Buprenorphine Urine Buprenorphine Screen 400.5230 (A) Amphetamines Ur Ql Scn>500 ng/mL See Note (Cutoff 500) None Note: [id number] E@Reenter manual test result: NEGATIVE@by Jia Lentz at 10/19/20 1640.Responsible Observer: Amphetamines Urine Amphetamines Screen 400.5160 (A) Barbiturates Ur Ql Scn>200 ng/mL See Note (Cutoff 200) None Note: [id number] E@Reenter manual test result: NEGATIVE@by Jia Lentz [...] Qn Westrgrn 22 (0-20) H (High) Note: [facility]: 22@by Jia Lentz [...] Auto See Note (0-2) N (Normal) Note: 0.30.6Q82304694322.3Responsible Ob seismic observer: IG% IG% 100.1375 (B) Hct VFr [...] None Note: Reported Physicians:Ordering: Sana Recinosending: [facility] To: Maya Barron Reviewed by Maya Barron [...] Auto See Note (0-2) N (Normal) Note: 0.10.9N74471073877.1Responsible Ob seismic observer: IG% IG% 100.1375 (B) Hct VFr [...] Auto See Note (0-2) N (Normal) Note: 0.30.2R75728903478.3Responsible Ob seismic observer: IG% IG% 100.1375 (B) Hct VFr [...] Auto See Note (0-2) N (Normal) Note: 0.40.3U17559181372.4Responsible Ob seismic observer: IG% IG% 100.1375 (B) Hct VFr [...] are final unless otherwise noted. CG Quantitative [facility] Ordered by Maya Barron MD on 10/03/2020 Collected: 10/03/2020 Reported: 10/03/2020 20:23 [facility] [address] MilliInternationalUnitsPerMilliLiter_[Arbitrary_Con (0-10) H (High) Note: @Instrument will [...] UrnS Ql Micro Bacteria UrnS Ql Micro [id number] Bacteria UrnS Ql Micro Bacteria UrnS Ql [...] Note (0.2-1 EU/dl) None Note: 0.2 EU/dl0.2 EU/rcU91761380688.2 E U/dlResponsible Observer: UROBILINOGEN UROBILINOGEN 300.4500 (C) RBC # Ur Strip NEGATIVE (NEGATIVE) None Note: Responsible Observer: BLOOD BLOOD 300.4652 (C) Prot Ur Ql Strip See Note (NEGATIVE) None Note: [id number] EResponsible Observer: PROTEIN PROTEIN 300.3750 (C) Ketones Ur Ql Strip See Note (NEGATIVE) None Note: [id number] EResponsible Observer: KETONE KETONE 300.3900 (C) Bilirub Ur Ql Strip.auto See Note (NEGATIVE) None Note: [id number] EResponsible Observer: BILIRUBIN BILIRUBIN 300.4550 (C) Glucose Ur Strip.auto-mCnc NEGATIVE (NEGATIVE) None Note: Responsible Observer: GLUCOSE GLUC OSE 300.3850 (C) Appearance Ur See Note (CLEAR) None Note: CLEARCLEARLCLEARResponsible Observ er: APPEARANCE APPEARANCE 300.3400 (A) Color Ur See Note None Note: YELLOWYELLOWLYELLOWResponsible Obs erver: COLOR COLOR 300.3330 (A) Leukocyte esterase Ur Ql Strip See Note (NEGATIVE) None Note: [id number]@DO MICR O!!!!A Culture has been added to this specimen per established criteriaResponsible Observer: LEUKOCYTES LEUKOCYTES 300.3576 (C) Nitrite Ur Ql Strip See Note (NEGATIVE) None Note: [id number] EResponsible Observer: NITRITE NITRITE 300.3652 (B) pH [...] See Note None Note: Reported Physicians:Ordering: Yoli aNpolesAttending: Charles Silva To: Maya Barron Reviewed by Maya Barron MD on 10/04; All test results are final unless otherwise noted. BHCG, QUANTITATIVE [facility] Ordered by Maya Barron MD on 09/18/2020 Collected: 09/18/2020 Reported: 09/18/2020 20:21 B-HCG [facility] [id number] MilliInternationalUnitsPerMilliLiter_[Arbitrary_Con (0-10) H (High) Note: APPROXIMATE GESTATION [...] Auto See Note (0-2) N (Normal) Note: 0.10.1M30572435946.1Responsible Ob seismic observer: IG% IG% 100.1375 (B) Hct VFr [...] Note (0.2-1 EU/dl) None Note: 0.2 EU/dl0.2 EU/udV58292869102.2 E U/dlResponsible Observer: UROBILINOGEN UROBILINOGEN 300.4500 (C) RBC # Ur Strip NEGATIVE (NEGATIVE) None Note: Responsible Observer: BLOOD BLOOD 300.4652 (C) Prot Ur Ql Strip See Note (NEGATIVE) None Note: [id number] EResponsible Observer: PROTEIN PROTEIN 300.3750 (C) Ketones Ur Ql Strip See Note (NEGATIVE) None Note: [id number] ble Observer: KETONE KETONE 300.3900 (C) Bilirub Ur Ql Strip.auto See Note (NEGATIVE) None Note: [id number] EResponsible Observer: BILIRUBIN BILIRUBIN 300.4550 (C) Glucose Ur Strip.auto-mCnc NEGATIVE (NEGATIVE) None Note: Responsible Observer: GLUCOSE GLUC OSE 300.3850 (C) Appearance Ur See Note (CLEAR) None Note: CLEARCLEARLCLEARResponsible Observ er: APPEARANCE APPEARANCE 300.3400 (A) Color Ur See Note None Note: YELLOWYELLOWLYELLOWResponsible Obs erver: COLOR COLOR 300.3330 (A) Leukocyte esterase Ur Ql Strip See Note (NEGATIVE) None Note: [id number] EResponsible Observer: LEUKOCYTES LEUKOCYTES 300.3576 (C) Nitrite Ur Ql Strip See Note (NEGATIVE) None Note: [id number] EResponsible Observer: NITRITE NITRITE 300.3652 (B) pH [...] Collected: 09/10/2020 Reported: 09/10/2020 15:48 B-HCG SerPl-aCnc [address] MilliInternationalUnitsPerMilliLiter_[Arbitrary_Con (0-10) H (High) Note: @Instrument will [...] findings,re- testing should be considered in [facility]. Laboratory test results shouldalways be considered in the context of clinicalobservations and epidemiological data in making a finaldiagnosis and patient management decisions.Please review the "Fact Sheets" and FDA authorizedlabeling available for health care providers andpatients using the following websites:https://www.[employer] .[place].cl/home/Covid-19/HCP/NAAT/fact-ecqca0rmvop://www.[employer].[place].cl/home/Cov id-19/Patients/NAAT/fact-rnkgr1Wxpm test has been authorized by the FDA under anEmergency Use Authorization (EUA) for use by authorizedlaboratories.Due to the current public health emergency, [facility] is receiving a high volume of samples [...] information about COVID-19 can be foundat the [employer] website:www.[facility].[place].cl/Covid19.THIS TEST WAS PERFORMED AT:[facility] [address]AJQFYGCLAUDY ONEILLesponsible Observer: COVID-19 COVID-19 ТАТЬЯНА (SARS-CoV-2) [id number] 914.6385 ([employer] [facility]) Reviewed by Maya Barron MD on [...] by Maya Barron MD on 08/15/2020 [address] [place], [address] Collected: 08/15/2020 Reported: 08/15/2020 11:47 tel :[phone] strep antigen normal (negative) N (Normal) Reviewed by Maya Barron MD on 08/15; All test results are final unless otherwise noted. Urinalysis w/out microscopy Office Lab Ordered by Maya Barron MD on 08/15/2020 [address] [place], [address] Specimen Source: Urine Collected: 08/15/2020 Reporte d: 08/15/2020 11:03 tel:[phone] bilirubin normal (neg) N (Normal) blood normal [...] None Note: TNPNo Reportable ResultLTNPNo Repo rtable FlywpiT1LOV NOTES See Note None Note: [place]NA PICKARD [...] ualitative anddifferentiation of Influenza type A,B and IZFP-POT-9KUAF-RT-PCR testNORMAL VALUE IS "NOT DETECTED".Limitations of the sweta raquel Influenza A/B & WAJB-ONY-8cshys method.Modifications to manufacturers recommendation and proceduresmay alter performance of the test.Negative results do not preclude Influenza A,B or SARS- YUO6vofnurmlss and should not be used as the [...] out diseases caused by other bacterialor viral pathogens.30901-7HSTU-gaw CoV RNA Resp Ql ТАТЬЯНА+probeLNNSARS SARS-COV-2 NOT QHROBCEHC4965328083UIBR-INU-7 NOT CQCQITPW72083-3SFJYR RNA Resp Ql ТАТЬЯНА+probeLNNFLUAInfluenza A Not KtjpzaqfZ2929817658Tvsgcehfa A Not Vwxbbgrr86732-9RWOGA RNA Resp Ql ТАТЬЯНА+probeLNNINBInfluenza B Not HnfaesixB3138644461Ftqdodusj B Not Detected NOTES See Note None [...] 805.1454 ([facility]) NOTES See Note None Note: FDU82-88Iiqhogahke Technique: BRUS H-SPATULABody Site: CERVIX Reviewed by [...] Note (NOT DETECTED) None Note: NOT DETECTEDNOT UIJOEWTOP071148020 6NOT DETECTEDResponsible Observer: C.Trach RNA Chlamydia trachomatis DNA-ТАТЬЯНА 14540946 913.9900 ([employer]) N gonorrhoea rRNA XXX Ql ТАТЬЯНА+probe See Note (NOT DETECTED) None Note: NOT DETECTEDNOT [id number] 6NOT DETECTEDResponsible Observer: GC RNA Neisseria gonorrhoeae DNA -ТАТЬЯНА 05964055 913.9905 ([employer]) Chlamydia/GC DNA Note SEE NOTE None Note: The analytical performance charact eristics of thisassay, when used to test SurePath(TM) specimens have beendetermined by [employer]. The modifications havenot been cleared or approved by the FDA. This assay hasbeen validated pursuant to the CLIA regulations and isused for clinical purposes.For additional information, please refer tohttps://education.[employer].[place].cl/faq/IDU635(This link is being provided for information/educational purposes only.)THIS TEST WAS PERFORMED AT:[facility] [address]CLAUDY BURGESSesponsible Observer: GC/Chlam Note Chlamydia/GC DNA Note 40088006 913.9907 (A) NOTES See Note None Note: [...] DETECTED) None Note: THIS TEST WAS PERFORMED AT:[employer] [facility] [address]DKPEKYCLAUDY ONEILLesponsible Observer: Dionna DNA Dionna species DNA Probe [id number] 913.2350 ([employer]) Gardnerella DNA Probe DETECTED (NOT DETECTED) H (High) Note: Increased levels of G. vaginalis m ay not be significantin the absence of signs and symptoms of bacterialvaginosis.Responsible Observer: Gardnerella DNA Gardnerella DNA Probe 88970872 913.2347 ([employer]) Trichomonas DNA Probe NOT DETECTED (NOT DETECTED) None Note: Responsible Observer: Trichomonas DNA Trichomonas DNA Probe 97028008 743.2340 ([employer]) NOTES See Note None Note: PICKARD:IN OTHER [...] UrnS Ql Micro Bacteria UrnS Ql Micro 9702730991 Bacteria UrnS Ql Micro Bacteria UrnS Ql [...] Ql Micro Mucous Threads UrnS Ql Micro 4438210295 Mucous Threads UrnS Ql Micro Mucous Threads UrnS Ql Micro MODERATE AMOUNT WBC # Ur Manual 5-8 @08/09/20 1210: UA W/ MICRO added. RFLXG = UMIC.Method of Collection:: Clean CatchResponsible Observer: WBC WBC 300.5000 (A) Reviewed by Cat Gutierrez [facility] on 08/12; All test results are final unless otherwise noted. Reported Physicians [facility] Ordered by Cat Gutierrez [facility] on 08/09/2020 Collected: 08/09/2020 Reported: 08/10/2020 17:47 Reported Physicians See Note None Note: Reported Physicians:Ordering: Atte oralia: Rigo Gutierrez To: Maya Barron Reviewed by Cat Gutierrez [facility] on 08/12; All test results are final unless otherwise noted. MEDMATCH [facility] Ordered by Cat Gutierrez [facility] on 08/09/2020 Collected: 08/09/2020 Reported: 08/13/2020 15:56 MEDMATCH See scanned report None Note: Responsible Observer: MEDMATCH MED MATCH [phone] ([facility]) Reviewed by Cat Gutierrez [facility] on 08/14; All test results are final unless otherwise noted. Reported Physicians [facility] Ordered by Cat Gutierrez [facility] on 08/09/2020 Collected: 08/09/2020 Reported: 08/13/2020 15:56 Reported Physicians See Note None Note: Reported Physicians:Ordering: Atte oralia: Rigo Gutierrez To: Maya Barron Reviewed by Cat Gutierrez [facility] on 08/14; All test results are final unless otherwise noted. URINALYSIS [facility] Ordered by aCt Gutierrez [facility] on 08/09/2020 Collected: 08/09/2020 Reported: 08/09/2020 12:23 Urobilinogen Ur Ql See Note (0.2-1 EU/dl) None Note: 1 EU/dl1 EU/riR88444050584 EU/dlRe sponsible Observer: UROBILINOGEN UROBILINOGEN 300.4500 (C) RBC # Ur Strip NEGATIVE (NEGATIVE) None Note: Responsible Observer: BLOOD BLOOD 300.4650 (C) Prot Ur Ql Strip See Note (NEGATIVE) None Note: [id number] ble Observer: PROTEIN PROTEIN 300.3750 (C) Ketones Ur Ql Strip See Note (NEGATIVE) None Note: [id number] ble Observer: KETONE KETONE 300.3900 (C) Bilirub Ur Ql Strip.auto See Note (NEGATIVE) None Note: [id number] EResponsible Observer: BILIRUBIN BILIRUBIN 300.4550 (C) Glucose Ur Strip.auto-mCnc NEGATIVE (NEGATIVE) None Note: Responsible Observer: GLUCOSE GLUC OSE 300.3850 (C) Appearance Ur See Note (CLEAR) None Note: CLEARCLEARLCLEARResponsible Observ er: APPEARANCE APPEARANCE 300.3400 (A) Color Ur See Note None Note: DARK YELLOWDARK YELLOWLDARK YELLOW Responsible Observer: COLOR COLOR 300.3300 (A) Leukocyte esterase Ur Ql Strip See Note (NEGATIVE) None Note: [id number]@DO MICR O!!!!Responsible Observer: LEUKOCYTES LEUKOCYTES 300.3575 (C) Nitrite Ur Ql Strip See Note (NEGATIVE) None Note: [id number] EResponsible Observer: NITRITE NITRITE 300.3650 (B) pH [...] To: Maya Barron Reviewed by Cat Gutierrez [facility] on 08/10; All test results are final unless otherwise noted. Varicella-Zoster IgG Antibody [facility] Ordered by Cat Gutierrez RPA on 08/09/2020 Collected: 08/09/2020 Reported: 08/10/2020 17:47 VZV IgG Ser [facility] 242.10 None Note: Index Interpr etation [...] Antibody Immunity Screen, ACIF.THIS TEST WAS PERFORMED AT:[facility] [place] [address]KAMBIZ ME RATI,MDResponsible Observer: VARICELLA IGG Varicella-Zoster IgG Antibody 60541708 913.5654 ([employer] [facility]) NOTES See Note None Note: Patient Street Address: [address] [place], [place] [address]Patient City: [facility] State: [facility] Zip Code: [address]Exlsnig Reviewed by Cat Gutierrez RPA on 08/12; All test results are final unless otherwise noted. HCV RFX ТАТЬЯНА [facility] Ordered by Cat Gutierrez RPA on 08/09/2020 Collected: 08/09/2020 Reported: 08/10/2020 17:47 HCV Ab Ser Ql See Note (NON-REACTIVE) None Note: GMW-QOPWBWXOETZ-[id number] 7NON-REACTIVEResponsible Observer: HEP C ANTIBODY Hepatitis C Antibody 10141542 914.8305 ([employer]) HCV RNA Qualitative (ТАТЬЯНА) 0.54 (<1.00) None Note: HCV antibody was non-reactive. The re is no laboratoryevidence of HCV infection.In most cases, no further action is required. However,if recent HCV exposure is suspected, a test for HCV RNA(test code 28500) is suggested.For additional information please refer tohttp://education.mig33/faq/PEP54a9(This link is being provided for informational/educational purposes only.)THIS TEST WAS PERFORMED AT:[facility] [address]OSEAS MEANS,MDResponsible Observer: SIG TO C/O SIGNAL TO CUTOFF [id number] 914.8302 ([employer]) NOTES See Note None Note: Patient Street Address: [address] [place], [place] [address] [facility] Zip Code: [address]Auqaajw Reviewed by Cat Gutierrez RPA on 08/12; [...] Auto See Note (0-2) N (Normal) Note: 0.20.3G98928789164.2Responsible Ob seismic observer: IG% IG% 100.1375 (B) Hct VFr [...] its analytical performancecharacteristics have been determined by [facility]. It has not been cleared or approved by theA. This assay has been validated pursuant to the CLIAregulations and is used for clinical purposes.THIS TEST WAS PERFORMED AT:[facility] [address]FPAGJMCLAUDY ONEILLesponsible Observer: Lead, WB Lead, Whole Blood [id number] 911.2190 ([facility]) NOTES See Note None Note: Patient Street Address: [address] [place] [address] [address]Patient City[place] Zip Code: [address]Ydzmnad Reviewed by Cat Gutierrez RPA on 08/14; All test results are final unless otherwise noted. ncPN REF [facility] Ordered by Cat Gutierrez RPA on 08/09/2020 Collected: 08/09/2020 Reported: 08/13/2020 15:26 T pallidum Ab Ser Ql Aggl See Note (Nonreactive) None Note: [id number] onreactiveResponsible Observer: TP-PA Treponema pallidum Ab (TP-PA) [id number] 908.0286 ([facility]) HIV1 RNA SerPl Ql ТАТЬЯНА+probe See Note None Note: TNPNo Reportable ResultLTNPNo Repo rtable ResultLLEP.LIVENTNPResponsible Observer: HIV 1 RNA, QL T HIV 1 RNA, QL TMA 13698181 908.0254 ([facility]) HBV surface Ag SerPl Ql IA See Note (NON-REACTIVE) None Note: MGF-WERKTFULPIC-[id number] 5NON-REACTIVEResponsible Observer: HBSAG Hepatitis B Surface Antigen 33169041 910.2005 ([facility]) RUBV IgG SerPl IA-aCnc 1.76 None Note: Index Interpretatio n ----- <0.90 Not consistent with immunity 0.90-0.99 Equivocal > or = 1.00 Consistent with immunityThe presence of rubella IgG antibody suggestsimmunization or past or current infection withrubella virus.THIS TEST WAS PERFORMED AT:[facility] [address]IRGDCPCLAUDY ONEILLesponsible Observer: Rubella IgG Ab Rubella IgG Ab 51887120 911.2840 ([facility]) HIV1 Ab SerPlBld Ql IA.rapid See Note None Note: TNPNo Reportable ResultLTNPNo Repo rtable ResultLLEP.LIVENTNPResponsible Observer: HIV 1 AB HIV 1 AB [id number] 908.0250 ([facility]) HBsAg Confirmation See Note None Note: TNPNo Reportable ResultLTNPNo Repo rtable ResultLLEP.LIVENTNPResponsible Observer: HBsAg Confirm HBsAg Confirmation [id number] ([facility]) HIV (1&2) Screen, 4th Gen NON-REACTIVE [...] for this purpose.For additional information please refer tohttp://education.mig33/faq/BZJ496(This link is being provided for informational/educational purposes only.)The performance of this assay has not been clinicallyvalidated in patients less than 2 years old.THIS TEST WAS PERFORMED AT:[facility] [address]EUCTKXCLAUDY ONEILLesponsible Observer: HIV ABS HIV (1&2) Screen, 4th Gen [id number] 908.0228 ([facility]) Reviewed by Cat Gutierrez RPA on [...] 08/08/2020 Collected: 08/08/2020 Reported: 08/08/2020 11:53 B-HCG [facility] [address] MilliInternationalUnitsPerMilliLiter_[Arbitrary_Con (0-10) H (High) Note: @Instrument will [...] See Note None Note: Reported Physicians:Ordering: Jannet valentiening: Rigo Gutierrez To: Maya Barron Reviewed by [...] 08/01/2020 Collected: 08/01/2020 Reported: 08/01/2020 02:26 B[facility] [address] MilliInternationalUnitsPerMilliLiter_[Arbitrary_Con (0-10) H (High) Note: @Instrument will [...] [facility] Ordered by Cat Gutierrez [facility] on 08/01/2020 Collected: 08/01/2020 Reported: 08/01/2020 02:26 Reported Physicians See Note None Note: Reported Physicians:Ordering: Aj Ferreiraending: Jos Rivas To: Maya Barron Reviewed by Cat Gutierrez [facility] on 08/01; All test results are final unless otherwise noted. CBC W AUTO DIFF [facility] Ordered by Cat Gutierrez [facility] on 08/01/2020 Collected: 08/01/2020 Reported: 08/01/2020 00:56 [...] Auto See Note (0-2) N (Normal) Note: 0.10.6B01210426522.1Responsible Ob seismic observer: IG% IG% 100.1375 (B) Hct VFr [...] Note (0.2-1 EU/dl) None Note: 0.2 EU/dl0.2 EU/frD34519591224.2 E U/dlResponsible Observer: UROBILINOGEN UROBILINOGEN 300.4500 (C) RBC # Ur Strip SMALL (NEGATIVE) None Note: @DO MICRO!!!!Responsible Observer: BLOOD BLOOD 300.4652 (C) Prot Ur Ql Strip See Note (NEGATIVE) None Note: [id number] EResponsible Observer: PROTEIN PROTEIN 300.3750 (C) Ketones Ur Ql Strip See Note (NEGATIVE) None Note: 15 mg/dL15 mg/vJB218907295545 mg/d LResponsible Observer: KETONE KETONE 300.3900 (C) Bilirub Ur Ql Strip.auto See Note (NEGATIVE) None Note: [id number] EResponsible Observer: BILIRUBIN BILIRUBIN 300.4550 (C) Glucose Ur Strip.auto-mCnc NEGATIVE (NEGATIVE) None Note: Responsible Observer: GLUCOSE GLUC OSE 300.3850 (C) Appearance Ur See Note (CLEAR) None Note: CLEARCLEARLCLEARResponsible Observ er: APPEARANCE APPEARANCE 300.3400 (A) Color Ur See Note None Note: YELLOWYELLOWLYELLOWResponsible Obs erver: COLOR COLOR 300.3330 (A) Leukocyte esterase Ur Ql Strip See Note (NEGATIVE) None Note: [id number]@DO MICR O!!!!A Culture has been added to this specimen per established criteriaResponsible Observer: LEUKOCYTES LEUKOCYTES 300.3576 (C) Nitrite Ur Ql Strip See Note (NEGATIVE) None Note: [id number] EResponsible Observer: NITRITE NITRITE 300.3652 (B) pH [...] UrnS Ql Micro Bacteria UrnS Ql Micro [id number] Bacteria UrnS Ql Micro Bacteria UrnS Ql [...] [facility] Ordered by Cat Gutierrez [facility] on 07/31/2020 Collected: 07/31/2020 Reported: 07/31/2020 16:53 B-HCG [facility] [address] MilliInternationalUnitsPerMilliLiter_[Arbitrary_Con (0-10) H (High) Note: @Instrument will [...] oralia: Cat Gutierrez Reviewed by Cat Gutierrez [facility] on 08/01; All test results are final unless otherwise noted. UA W/ CULTURE IF ABNORMAL [facility] Ordered by Cat Gutierrez RPA on 07/27/2020 Collected: 07/27/2020 Reported: 07/27/2020 21:36 Urobilinogen Ur Ql See Note (0.2-1 EU/dl) None Note: 0.2 EU/dl0.2 EU/wuK92504235272.2 E U/dlResponsible Observer: UROBILINOGEN UROBILINOGEN 300.4500 (C) RBC # Ur Strip NEGATIVE (NEGATIVE) None Note: Responsible Observer: BLOOD BLOOD 300.4652 (C) Prot Ur Ql Strip See Note (NEGATIVE) None Note: [id number] EResponsible Observer: PROTEIN PROTEIN 300.3750 (C) Ketones Ur Ql Strip See Note (NEGATIVE) None Note: [id number] EResponsible Observer: KETONE KETONE 300.3900 (C) Bilirub Ur Ql Strip.auto See Note (NEGATIVE) None Note: [id number] EResponsible Observer: BILIRUBIN BILIRUBIN 300.4550 (C) Glucose Ur Strip.auto-mCnc NEGATIVE (NEGATIVE) None Note: Responsible Observer: GLUCOSE GLUC OSE 300.3850 (C) Appearance Ur See Note (CLEAR) None Note: CLEARCLEARLCLEARResponsible Observ er: APPEARANCE APPEARANCE 300.3400 (A) Color Ur See Note None Note: YELLOWYELLOWLYELLOWResponsible Obs erver: COLOR COLOR 300.3330 (A) Leukocyte esterase Ur Ql Strip See Note (NEGATIVE) None Note: [id number]@DO MICR O!!!!A Culture has been added to this specimen per established criteriaResponsible Observer: LEUKOCYTES LEUKOCYTES 300.3576 (C) Nitrite Ur Ql Strip See Note (NEGATIVE) None Note: [id number] EResponsible Observer: NITRITE NITRITE 300.3652 (B) pH [...] Physicians See Note None Note: Reported Physicians:Ordering: Yoni richards, FaisalAttending: Carmina GoodisalCopy To: Maya Barron Reviewed by Cat Gutierrez RPA on 07/31; All test results are final unless otherwise noted. ADD ON MICROSCOPIC [facility] Ordered by Cat Brenda [facility] on 07/27/2020 Collected: 07/27/2020 Reported: 07/27/2020 21:36 ADD ON MICROSCOPIC See Note (0-5) None Note: NOTES OTHER/NOT INTERPRETED Bacteria UrnS Ql Micro SMALL AMOUNT Bacteria UrnS Ql Micro SMALL AMOUNT Bacteria UrnS Ql Micro L Bacteria UrnS Ql Micro Bacteria UrnS Ql Micro Bacteria UrnS Ql Micro Bacteria UrnS Ql Micro [id number] Bacteria UrnS Ql Micro Bacteria UrnS Ql [...] [facility] Ordered by Cat Gutierrez [facility] on 07/27/2020 Collected: 07/27/2020 Reported: 07/27/2020 21:37 Reported Physicians See Note None Note: Reported Physicians:Ordering: Yoni richards, CarminaisalAttending: Carmina GoodisalCopyifan To: Maya Barron Reviewed by Cat Gutierrez [facility] on 07/28; All test results are [...] noted. CMP [facility] Ordered by Cat Gutierrez [...] Auto See Note (0-2) N (Normal) Note: 0.20.2M32655849136.2Responsible Ob seismic observer: IG% IG% 100.1375 (B) Hct VFr [...] Reported: 07/26/2020 16:48 B-HCG [facility] 4155 MilliInternationalUnitsPerMilliLiter_[Arbitrary_Con (0-10) H (High) Note: [...] None Note: TNPNo Reportable ResultLTNPNo Repo rtable TpyfbuO2EZN Reviewed by Bandar Cleveland PA-C on ; [...] ualitative anddifferentiation of Influenza type A,B and CRDM-TQU-1JWVL-RT-PCR testNORMAL VALUE IS "NOT DETECTED".Limitations of the sweta raquel Influenza A/B & EOBL-SKJ-3glhop method.Modifications to manufacturers recommendation and proceduresmay alter performance of the test.Negative results do not preclude Influenza A,B or SARS- TIS7wbmlxygxvf and should not be used as the [...] out diseases caused by other bacterialor viral pathogens.37936-3YSNN-RiV-3 RNA Resp Ql ТАТЬЯНА+probeLNNOSNo O rganisms TaqhduawW4828635335Nx Organisms Detected Reviewed by Bandar Cleveland PA-C [...] Auto See Note (0-2) N (Normal) Note: 0.30.1F80177940069.3Responsible Ob seismic observer: IG% IG% 100.1375 (B) Hct VFr [...] test results are final unless otherwise noted. [facility] Ordered by Maya Barron [...] None Note: TNPNo Reportable ResultLTNPNo Repo rtable PztdpqA9CBT Reviewed by Maya Barron MD on 07/24; [...] ualitative anddifferentiation of Influenza type A,B and IUYC-YNT-4MEVR-RT-PCR testNORMAL VALUE IS "NOT DETECTED".Limitations of the sweta raquel Influenza A/B & AGUL-MCW-4gsxnz method.Modifications to manufacturers recommendation and proceduresmay alter performance of the test.Negative results do not preclude Influenza A,B or SARS- FKR0cbwuggmmbk and should not be used as the [...] out diseases caused by other bacterialor viral pathogens.31457-2DCOW-CmM-2 RNA Resp Ql ТАТЬЯНА+probeLNNOSNo O rganisms YrwszfkyJ2501176477Ey Organisms Detected Reviewed by Maya Barron MD [...] Note (0.2-1 EU/dl) None Note: 0.2 EU/dl0.2 EU/haI90310900138.2 E U/dlResponsible Observer: UROBILINOGEN UROBILINOGEN 300.4500 (C) RBC # Ur Strip NEGATIVE (NEGATIVE) None Note: Responsible Observer: BLOOD BLOOD 300.4652 (C) Prot Ur Ql Strip See Note (NEGATIVE) None Note: [id number] EResponsible Observer: PROTEIN PROTEIN 300.3750 (C) Ketones Ur Ql Strip See Note (NEGATIVE) None Note: [id number] EResponsible Observer: KETONE KETONE 300.3900 (C) Bilirub Ur Ql Strip.auto See Note (NEGATIVE) None Note: [id number] EResponsible Observer: BILIRUBIN BILIRUBIN 300.4550 (C) Glucose Ur Strip.auto-mCnc NEGATIVE (NEGATIVE) None Note: Responsible Observer: GLUCOSE GLUC OSE 300.3850 (C) Appearance Ur See Note (CLEAR) None Note: CLEARCLEARLCLEARResponsible Observ er: APPEARANCE APPEARANCE 300.3400 (A) Color Ur See Note None Note: YELLOWYELLOWLYELLOWResponsible Obs erver: COLOR COLOR 300.3330 (A) Leukocyte esterase Ur Ql Strip See Note (NEGATIVE) None Note: [id number] EResponsible Observer: LEUKOCYTES LEUKOCYTES 300.3576 (C) Nitrite Ur Ql Strip See Note (NEGATIVE) None Note: [id number] EResponsible Observer: NITRITE NITRITE 300.3652 (B) pH [...] Lab Ordered by Myaa Barron MD on 07/19/2020 Collected: 07/19/2020 Reported: [...] NOT APPROPRIATE FOR USE INTHIS TEST.NOSNo Organisms [id number] Organisms Detected Reviewed by Maya Barron MD [...] 05/26/2020 Collected: 05/26/2020 Reported: 05/26/2020 14:49 [facility] [address] MilliInternationalUnitsPerMilliLiter_[Arbitrary_Con (0-10) H (High) Note: @Instrument will [...] Note (0.2-1 EU/dl) None Note: 0.2 EU/dl0.2 EU/zeY01290928964.2 E U/dlResponsible Observer: UROBILINOGEN UROBILINOGEN 300.4500 (C) RBC # Ur Strip NEGATIVE (NEGATIVE) None Note: Responsible Observer: BLOOD BLOOD 300.4650 (C) Prot Ur Ql Strip See Note (NEGATIVE) None Note: [id number] EResponsible Observer: PROTEIN PROTEIN 300.3750 (C) Ketones Ur Ql Strip See Note (NEGATIVE) None Note: [id number] EResponsible Observer: KETONE KETONE 300.3900 (C) Bilirub Ur Ql Strip.auto See Note (NEGATIVE) None Note: [id number] EResponsible Observer: BILIRUBIN BILIRUBIN 300.4550 (C) Glucose Ur Strip.auto-mCnc NEGATIVE (NEGATIVE) None Note: Responsible Observer: GLUCOSE GLUC OSE 300.3850 (C) Appearance Ur See Note (CLEAR) None Note: CLEARCLEARLCLEARResponsible Observ er: APPEARANCE APPEARANCE 300.3400 (A) Color Ur See Note None Note: YELLOWYELLOWLYELLOWResponsible Obs erver: COLOR COLOR 300.3300 (A) Leukocyte esterase Ur Ql Strip See Note (NEGATIVE) None Note: [id number] EResponsible Observer: LEUKOCYTES LEUKOCYTES 300.3575 (C) Nitrite Ur Ql Strip See Note (NEGATIVE) None Note: [id number] EResponsible Observer: NITRITE NITRITE 300.3650 (B) pH [...] None Note: Responsible Observer: MEDMATCH MED MATCH 676.71594 ([employer]) Reviewed by Maya Barron MD on [...] Antibody Immunity Screen, ACIF.THIS TEST WAS PERFORMED AT:[facility] [address]IHPXOO ME RATI,MDResponsible Observer: VARICELLA IGG Varicella-Zoster IgG Antibody 08348808 905.8513 ([employer]) NOTES See Note None Note: Patient Street Address: [facility] [address] Code: [address] Reviewed by Maya Barron MD on 05/26; [...] Auto See Note (0-2) N (Normal) Note: 0.20.1T46842802836.2Responsible Ob seismic observer: IG% IG% 100.1375 (B) Hct VFr [...] its analytical performancecharacteristics have been determined by [employer]. It has not been cleared or approved by theA. This assay has been validated pursuant to the CLIAregulations and is used for clinical purposes.THIS TEST WAS PERFORMED AT:[facility] [address]TIFURNCLAUDY ONEILLesponsible Observer: Lead, WB Lead, Whole Blood [id number] 911.2190 ([facility]) NOTES See Note None Note: Patient Street Address: [address]Patient City: [facility] State: [place]: [address] Reviewed by Maya Barron MD on 05/29; All test results are final unless otherwise noted. [facility] REF [facility] Ordered by Maya Barron MD on 05/23/2020 Collected: 05/23/2020 Reported: 05/27/2020 20:54 T pallidum Ab Ser Ql Aggl See Note (Nonreactive) None Note: [id number] onreactiveResponsible Observer: TP-PA Treponema pallidum Ab (TP-PA) [id number] 908.0286 ([facility]) HIV1 RNA SerPl Ql ТАТЬЯНА+probe See Note None Note: TNPNo Reportable ResultLTNPNo Repo rtable ResultLLEP.LIVENTNPResponsible Observer: HIV 1 RNA, QL T HIV 1 RNA, QL TMA 02827776 908.0254 ([facility]) HBV surface Ag SerPl Ql IA See Note (NON-REACTIVE) None Note: UES-JLVKTFDVRHV-[id number] 0NON-REACTIVEResponsible Observer: HBSAG Hepatitis B Surface Antigen 04156247 910.2004 ([facility]) RUBV IgG SerPl IA-aCnc 1.80 None Note: Index Interpretatio n ----- <0.90 Not consistent with Immunity 0.90-0.99 Equivocal > or = 1.00 Consistent with ImmunityThe presence of rubella IgG antibody suggestsimmunization or past or current infection withrubella virus.THIS TEST WAS PERFORMED AT:[facility] [address]TWHSFICLAUDY ONEILLesponsible Observer: Rubella IgG Ab Rubella IgG Ab [id number] 911.2840 ([facility]) HIV1 Ab SerPlBld Ql IA.rapid See Note None Note: TNPNo Reportable ResultLTNPNo Repo rtable ResultLLEP.LIVENTNPResponsible Observer: HIV 1 AB HIV 1 AB 83735244 908.0250 ([facility]) HBsAg Confirmation See Note None Note: TNPNo Reportable ResultLTNPNo Repo rtable ResultLLEP.LIVENTNPResponsible Observer: HBsAg Confirm HBsAg Confirmation [id number] 910.2007 ([facility]) HIV (1&2) Screen, 4th Gen [...] for this purpose.For additional information please refer tohttp://education.mig33/faq/TIF166(This link is being provided for informational/educational purposes only.)The performance of this assay has not been clinicallyvalidated in patients less than 2 years old.Responsible Observer: HIV ABS HIV (1&2) Screen, 4th Gen 67885090 908.0228 ([facility]) Reviewed by Maya Barron MD on 05/29; [...] Ser Ql See Note (NON-REACTIVE) None Note: XRT-FBOTHXOJIZH-[id number] 7NON-REACTIVEResponsible Observer: HEP C ANTIBODY Hepatitis C Antibody 40790087 914.8305 ([facility]) HCV RNA Qualitative (ТАТЬЯНА) 0.59 (<1.00) None Note: HCV antibody was non-reactive. The re is no laboratoryevidence of HCV infection.In most cases, no further action is required. However,if recent HCV exposure is suspected, a test for HCV RNA(test code 20138) is suggested.For additional information please refer tohttp://education.HourlyNerd.Arriendas.cl/faq/YHU49k4(This link is being provided for informational/educational purposes only.)THIS TEST WAS PERFORMED AT:[facility] [address]KAJUANCHO MEANS,MDResponsible Observer: SIG TO C/O SIGNAL TO CUTOFF [id number] 914.2846 ([employer]) NOTES See Note None Note: Patient Street Address: [facility] [address]Patient City: [place] [facility] Zip Code: [address] Reviewed by Maya Barron MD on 05/26; [...] 04/27/2020 Collected: 04/27/2020 Reported: 04/27/2020 14:40 [facility] MilliInternationalUnitsPerMilliLiter_[Arbitrary_Con (0-10) H (High) Note: @Instrument [...] Cristino CastellanosCopyifan To: Johnny CazaresCopyifan To: Maya Barrno Reviewed by Maya Barron MD on 04/30; [...] Auto See Note (0-2) N (Normal) Note: 0.20.2I82834540143.2Responsible Ob seismic observer: IG% IG% 100.1375 (B) Hct VFr [...] BHCG,QUANT BHCG, QUANTITATIVE 600.5006 (G) Reviewed by Myaa Barron MD on 04/26; All test results [...] UrnS Ql Micro Bacteria UrnS Ql Micro 3643484377 Bacteria UrnS Ql Micro Bacteria UrnS Ql [...] Note (0.2-1 EU/dl) None Note: 0.2 EU/dl0.2 EU/nyG33065128214.2 E U/dlResponsible Observer: UROBILINOGEN UROBILINOGEN 300.4500 (C) RBC # Ur Strip NEGATIVE (NEGATIVE) None Note: Responsible Observer: BLOOD BLOOD 300.4650 (C) Prot Ur Ql Strip See Note (NEGATIVE) None Note: [id number] EResponsible Observer: PROTEIN PROTEIN 300.3750 (C) Ketones Ur Ql Strip See Note (NEGATIVE) None Note: [id number] EResponsible Observer: KETONE KETONE 300.3900 (C) Bilirub Ur Ql Strip.auto See Note (NEGATIVE) None Note: [id number] EResponsible Observer: BILIRUBIN BILIRUBIN 300.4550 (C) Glucose Ur Strip.auto-mCnc NEGATIVE (NEGATIVE) None Note: Responsible Observer: GLUCOSE GLUC OSE 300.3850 (C) Appearance Ur See Note (CLEAR) None Note: CLEARCLEARLCLEARResponsible Observ er: APPEARANCE APPEARANCE 300.3400 (A) Color Ur See Note None Note: YELLOWYELLOWLYELLOWResponsible Obs erver: COLOR COLOR 300.3300 (A) Leukocyte esterase Ur Ql Strip See Note (NEGATIVE) None Note: [id number]@DO MICR O!!!!Responsible Observer: LEUKOCYTES LEUKOCYTES 300.3575 (C) Nitrite Ur Ql Strip See Note (NEGATIVE) None Note: [id number] EResponsible Observer: NITRITE NITRITE 300.3650 (B) pH [...] UrnS Ql Micro Bacteria UrnS Ql Micro 3678932005 Bacteria UrnS Ql Micro Bacteria UrnS Ql [...] Note (0.2-1 EU/dl) None Note: 0.2 EU/dl0.2 EU/zjO36403260927.2 E U/dlResponsible Observer: UROBILINOGEN UROBILINOGEN 300.4500 (C) RBC # Ur Strip NEGATIVE (NEGATIVE) None Note: Responsible Observer: BLOOD BLOOD 300.4652 (C) Prot Ur Ql Strip See Note (NEGATIVE) None Note: [id number] EResponsible Observer: PROTEIN PROTEIN 300.3750 (C) Ketones Ur Ql Strip See Note (NEGATIVE) None Note: [id number] ble Observer: KETONE KETONE 300.3900 (C) Bilirub Ur Ql Strip.auto See Note (NEGATIVE) None Note: [id number] EResponsible Observer: BILIRUBIN BILIRUBIN 300.4550 (C) Glucose Ur Strip.auto-mCnc NEGATIVE (NEGATIVE) None Note: Responsible Observer: GLUCOSE GLUC OSE 300.3850 (C) Appearance Ur See Note (CLEAR) None Note: CLEARCLEARLCLEARResponsible Observ er: APPEARANCE APPEARANCE 300.3400 (A) Color Ur See Note None Note: YELLOWYELLOWLYELLOWResponsible Obs erver: COLOR COLOR 300.3330 (A) Leukocyte esterase Ur Ql Strip See Note (NEGATIVE) None Note: [id number] E@DO MICRO!!!!A Culture has been added to this specimen per established criteriaResponsible Observer: LEUKOCYTES LEUKOCYTES 300.3576 (C) Nitrite Ur Ql Strip See Note (NEGATIVE) None Note: [id number] EResponsible Observer: NITRITE NITRITE 300.3652 (B) pH [...] None Note: @04/16/20 2351: Urine culture addchandler sawyer RFLXG = CULT.ADD. Reviewed by Maya [...] Auto See Note (0-2) N (Normal) Note: 0.20.6E27368142363.2Responsible Ob seismic observer: IG% IG% 100.1375 (B) Hct VFr [...] Ordered by Maya Barron MD on 04/10/2020 [address] [place], [address] Collected: 04/10/2020 Reported: 04/11/2020 11:35 tel : [...] test results are final unless otherwise noted. [facility] In-house [facility] Ordered by Maya Barron MD on 04/10/[address] [place] [address], [facility] Collected: 04/10/2020 Reported: 04/11/2020 11:35 tel [...] Ordered by Maya Barron MD on 04/10/[address] [place] [address], [facility] Collected: 04/10/2020 Reported: 04/11/2020 11:35 tel : ext. [phone] TSH 1.336 uIu/mL (0.5-5.8) None Note: Responsible Observer: AW Reviewed by Maya Barron MD on 04/12; All test results are final unless otherwise noted. -[facility] Ordered by Maya Barron MD on 02/25/2020 Collected: 02/25/2020 Reported: 02/28/2020 15:53 C trach rRNA XXX Ql ТАТЬЯНА+probe See Note (NOT DETECTED) None Note: NOT DETECTEDNOT DETECTEDLNOT DETEC TEDNOT [id number] DETECTEDResponsible Observer: C.Trach RNA Chlamydia trachomatis DNA-ТАТЬЯНА 38771991 913.9900 ([facility]) N gonorrhoea rRNA XXX Ql ТАТЬЯНА+probe See Note (NOT DETECTED) None Note: NOT DETECTEDNOT DETECTEDLNOT DETEC TEDNOT [id number] DETECTEDResponsible Observer: GC RNA Neisseria gonorrhoeae DNA -ТАТЬЯНА 41143298 913.9905 ([facility]) Chlamydia/GC DNA Note SEE NOTE None Note: The analytical performance charact eristics of thisassay, when used to test SurePath(TM) specimens have beendetermined by [employer]. The modifications havenot been cleared or approved by the FDA. This assay hasbeen validated pursuant to the CLIA regulations and isused for clinical purposes.For additional information, please refer tohttps://education.mig33/faq/EMR633(This link is being provided for information/educational purposes only.)THIS TEST WAS PERFORMED AT:[facility] [address]CLAUDY ONEILLesponsible Observer: GC/Chlam Note Chlamydia/GC DNA Note 98064289 913.9907 (A) NOTES See Note None Note: [...] results are final unless otherwise noted. Urine culture-[facility] Ordered by Maya Barron [...] by Maya Barron MD on 02/25/2020 [address] [place], [address] Specimen Source: Urine Collected: 02/25/2020 Reporte d: 02/25/2020 11:15 tel:[phone] Urine HCG neg (negative) N (Normal) Reviewed by Maya Barron MD on 02/24; All test results are final unless otherwise noted. Urinalysis w/out microscopy Office Lab Ordered by Maya Barron MD on 02/25/2020 [address] [place], [address] Specimen Source: Urine Collected: 02/25/2020 Reporte d: 02/25/2020 11:02 tel:[phone] bilirubin neg (neg) N (Normal) blood neg [...] EU/dl) None Note: 1 EU/dl1 EU/dlL1 EU/dl1 EU/lrG7423 9371281 EU/dlResponsible Observer: UROBILINOGEN UROBILINOGEN 300.4500 (C) RBC # Ur Strip NEGATIVE (NEGATIVE) None Note: Responsible Observer: BLOOD BLOOD 300.4652 (C) Prot Ur Ql Strip See Note (NEGATIVE) None Note: NEGATIVENEGATIVELNEGATIVENEGATIVEL [id number]se Observer: PROTEIN PROTEIN 300.3750 (C) Ketones Ur Ql Strip See Note (NEGATIVE) None Note: 15 mg/dL15 mg/dLL15 mg/dL15 mg/dLL 300933869626 mg/dLResponsible Observer: KETONE KETONE 300.3900 (C) Bilirub Ur Ql Strip.auto See Note (NEGATIVE) None Note: NEGATIVENEGATIVELNEGATIVENEGATIVEL [id number] Observer: BILIRUBIN BILIRUBIN 300.4550 (C) Glucose Ur Strip.auto-mCnc NEGATIVE (NEGATIVE) None Note: Responsible Observer: GLUCOSE GLUC OSE 300.3850 (C) Appearance Ur See Note (CLEAR) None Note: CLEARCLEARLCLEARCLEARLCLEARRespons ible Observer: APPEARANCE APPEARANCE 300.3400 (A) Color Ur See Note None Note: YELLOWYELLOWLYELLOWYELLOWLYELLOWRe sponsible Observer: COLOR COLOR 300.3330 (A) Leukocyte esterase Ur Ql Strip See Note (NEGATIVE) None Note: NEGATIVENEGATIVELNEGATIVENEGATIVEL 5934093315OXSKYRBRWeqfoqwrtnm Observer: LEUKOCYTES LEUKOCYTES 300.3576 (C) Nitrite Ur Ql Strip See Note (NEGATIVE) None Note: NEGATIVENEGATIVELNEGATIVENEGATIVEL 4696889037WLXLOZBOLxjcllaqfll Observer: NITRITE NITRITE 300.3652 (B) pH Ur [...] are final unless otherwise noted. BHCG,SERUM QUALITATIVE [facility] Ordered by Maya Barron MD on 01/28/2020 Collected: 01/28/2020 Reported: 01/28/2020 22:58 HCG SerPl-sCnc NEGATIVE (NEGATIVE) None Note: @Reenter manual test result: NEGAT LAYA@by Sybil Whatley at 01/28/20 6268.Responsible Observer: BHCG SERUM BHCG SERUM 800.0900 (A) [...] Auto See Note (0-2) N (Normal) Note: 0.30.3L0.30.0E38303295439.3Respons ible Observer: IG% IG% 100.1375 (B) Hct [...] EU/dl) None Note: 1 EU/dl1 EU/dlL1 EU/dl1 EU/lwQ7132 2907319 EU/dlResponsible Observer: UROBILINOGEN UROBILINOGEN 300.4500 (C) RBC # Ur Strip NEGATIVE (NEGATIVE) None Note: Responsible Observer: BLOOD BLOOD 300.4652 (C) Prot Ur Ql Strip See Note (NEGATIVE) None Note: NEGATIVENEGATIVELNEGATIVENEGATIVEL 5930326998OCJGIZBFOssqcrnrzvy Observer: PROTEIN PROTEIN 300.3750 (C) Ketones Ur Ql Strip See Note (NEGATIVE) None Note: 15 mg/dL15 mg/dLL15 mg/dL15 mg/dLL [id number] mg/dLResponsible Observer: KETONE KETONE 300.3900 (C) Bilirub Ur Ql Strip.auto See Note (NEGATIVE) None Note: NEGATIVENEGATIVELNEGATIVENEGATIVEL [id number] Observer: BILIRUBIN BILIRUBIN 300.4550 (C) Glucose Ur Strip.auto-mCnc NEGATIVE (NEGATIVE) None Note: Responsible Observer: GLUCOSE GLUC OSE 300.3850 (C) Appearance Ur See Note (CLEAR) A (Abnormal) Note: CLOUDYCLOUDYLCLOUDYCLOUDYLCLOUDYRe sponsible Observer: APPEARANCE APPEARANCE 300.3400 (A) Color Ur See Note None Note: YELLOWYELLOWLYELLOWYELLOWLYELLOWRe sponsible Observer: COLOR COLOR 300.3330 (A) Leukocyte esterase Ur Ql Strip See Note (NEGATIVE) None Note: NEGATIVENEGATIVELNEGATIVENEGATIVEL [id number] Observer: LEUKOCYTES LEUKOCYTES 300.3576 (C) Nitrite Ur Ql Strip See Note (NEGATIVE) None Note: NEGATIVENEGATIVELNEGATIVENEGATIVEL [id number] Observer: NITRITE NITRITE 300.3652 (B) pH Ur [...] Auto See Note (0-2) N (Normal) Note: [id number] ible Observer: IG% IG% 100.1375 (B) Hct [...] final unless otherwise noted. Gastrointestinal Panel PCR [facility] Ordered by Maya Barron [...] OTHER EXPERTS. (E.G. GUIDELINES/POLICYSTATEMENTS PUBLISHED BY THE [employer] THE SOCIETY FOR HEALTHCARE EPIDEMIOLOGY OF [place] ANDTHE INFECTIOUS DISEASE SOCIETY OF [place]).CLOC. difficile toxin [id number]. difficile toxin detected Reviewed by Maya Barron [...] Auto See Note (0-2) N (Normal) Note: [id number] ible Observer: IG% IG% 100.1375 (B) Hct [...] unless otherwise noted. Prothrombin Time & INR [facility] Ordered by Maya Barron [...] Ordered by Maya Barron MD on 11/22/2019 [facility] [place], [address] Specimen Source: Urine Collected: 11/22/2019 Reporte d: [...] Auto See Note (0-2) N (Normal) Note: [id number] ible Observer: IG% IG% 100.1375 (B) Hct [...] are final unless otherwise noted. BHCG,SERUM QUALITATIVE [facility] Ordered by Maya Barron MD on 11/19/2019 Collected: 11/19/2019 Reported: 11/19/2019 09:58 HCG SerPl-sCnc NEGATIVE (NEGATIVE) None Note: @Reenter manual test result: [email or web address] at 11/19/19 0958.Responsible Observer: BHCG SERUM [...] Ordered by Maya Barron MD on 11/15/2019 [address] [place], [address] Collected: 11/15/2019 Reported: 11/16/2019 13:40 tel : [...] by Maya Barron MD on 11/15/2019 [address] [place], [address] Collected: 11/15/2019 Reported: 11/16/2019 13:40 tel :[phone] ext. 1500 Albumin 5.1 g/dl (3.4-5.0) H [...] by Maya Barron MD on 11/15/2019 [address] [place], [address] Collected: 11/15/2019 Reported: 11/16/2019 13:40 tel :[phone] ext. 1500 TSH 2.257 uIu/mL (0.5-5.8) None [...] Lab Ordered by Maya Barron MD on [address] [place] [address], [id number] Specimen Source: Urine Collected: Reported: 2020 11:41 [...] Ordered by Maya Barron MD on 12/27/2019 [facility] [place], [address] Specimen Source: Urine Collected: Reported: 2019 13:46 [...] Procedures and Surgical History Includes: Procedures from 11/01/2019 through 10/31/2020 Procedures Code Diagnosis Performing Provider Service Location Service Date REVISIT- office visit KAYLEIGH 17 weeks gestatio n of Maya Barron MD [facility], [facility] 10/24/2020 REVISIT- office visit KAYLEIGH 16 weeks gestatio n of Maya Barron MD [facility], [facility] 10/17/2020 Holter Monitor, Physician review & interpretation only 36026 Palpitations Michel Villalba MD [facility] Outpt 10/11/2020 REVISIT- office visit KAYLEIGH 15 weeks gestatio n of Maya Barron MD [facility], [facility] 10/11/2020 REVISIT- office visit KAYLEIGH 13 weeks gestatio n of Maya Barron MD [facility], [facility] 09/27/2020 REVISIT- office visit KAYLEIGH 12 weeks gestatio n of Maya Barron MD [facility], [facility] 09/19/2020 EKG- Electrocardiogram/12 lead 16041 Chest pain, unspe cified Cat Gutierrez [facility], [facility] 09/11/2020 REVISIT- office visit KAYLEIGH 10 weeks gestatio n of Cat Gutierrez [facility], [facility] 09/05/2020 REVISIT- office visit KAYLEIGH 8 weeks gestation of Maya Barron MD [facility], [facility] 08/22/2020 Urinalysis w/o Microscopy (Distinct Seperate service-same da y) 05487 Frequency of micturition- Urinary Frequency Maya Barron MD [facility], [facility] 08/15/2020 RAPID STREP 52236 Acute pharyngitis, unspecified Maya Barron MD [facility], [facility] 08/15/2020 Initial Obstetrical Care Office Visit OB Le ss than 8 weeks gestation of Cat Huston Gutierrez [facility], [facility] 021 Urinalysis w/o Microscopy 07740 Frequency of micturiti on- Urinary Frequency Maya Barron MD [facility], [facility] 07/19/2020 REVISIT- office visit KAYLEIGH Threatened Alicja Barron MD [facility], [facility] 05/26/2020 NO CHARGE- Nurse visit- OB establish [employer] Thr eatened , state, incidental Maya Barron MD [facility], [facility] 020 General Health Panel( CMP, CBC, TSH) 76308 Dysmenorrhe a, unspecified Maya Barron MD [facility], [facility] 04/10/2020 Venipuncture (routine) 20515 Dysmenorrhea, unspecified Mariela Barron MD [facility], [facility] 04/10/2020 Brief Emotional Behavior Assessment ( add -59 mod) 17116 Screening for Mental Health/Behavioral Disorder, Unspecified Maya Barron MD [facility], [facility] 04/10/2020 Urine Test 74607 Pelvic and perineal pain, Frequency of micturition- Urinary Frequency Maya Barron MD [facility], [facility] 02/25/2020 Urinalysis w/o Microscopy 54809 Frequency of micturiti on- Urinary Frequency Maya Barron MD [facility], [facility] 02/25/2020 Urine Test 02370 Amenorrhea, unspecified Maya Barron MD [facility], [facility] 12/27/2019 Urinalysis w/o Microscopy 75987 Right upper quadrant pain Trinity Barron MD [facility], [facility] 11/22/2019 General Health Panel( CMP, CBC, TSH) 61469 Other fatigue Alicja Barron MD [facility], [facility] 11/15/2019 Venipuncture (routine) 77825 Other fatigue Maya Barron MD [facility], [facility] 11/15/2019 Surgical History Last Updated No [...] 12:00AM Act laya Encounters Includes: Encounters from 11/01/2019 through 10/31/2020 Encounter Provider Location Date Check-In Time Check-Out Time D iagnosis Chronic Care Mgt - Office Visit Maya Barron MD [facility], [facility] 10/31/2020 3:23PM 3:24PM Fracture of Fift h Cervical Vertebral Body, History of Psychiatric Disorders, Reactive Airway Disease REVISIT- Routine (OB) Visit Maya Barron MD [facility], [facility] 10/31/2020 9:54AM 10:24AM Chronic Care Mgt - Office Visit Maya Barron MD [facility], [facility] 10/24/2020 2:16PM 11:59PM REVISIT- Routine (OB) Visit Maya Barron MD [facility], [facility] 10/24/2020 10:00AM 10:47AM REVISIT- Routine (OB) Visit Maya Barron MD [facility], [facility] 10/17/2020 11:24AM 12:12PM Chronic Care Mgt - Office Visit Maya Barron MD [facility], [facility] 10/17/2020 11:25AM 12:11PM Fracture of Fift h Cervical Vertebral Body, History of Psychiatric Disorders, Reactive Airway Disease REVISIT- Routine (OB) Visit Maya Barron MD [facility], [facility] 10/11/2020 9:44AM 10:15AM OB- ILL VISIT Maya Barron MD [facility], [facility] 10/04/2020 2:12PM 2:31PM Presyncope Syndrome, Tachyca rdia, Palpitations, Difficulty Breathing (Dyspnea), Weeks of Gestation - 14 REVISIT- Routine (OB) Visit Maya Barron MD [facility], [facility] 09/27/2020 1:36PM 1:59PM telephone conversation Michel Villalba MD 09/19/2020 9:43PM 09/19/2020 11:59PM Atypical Chest Pain REVISIT- Routine (OB) Visit Maya Barron MD [facility], [facility] 09/19/2020 9:48AM 10:14AM REVISIT- Routine (OB) Visit Cat Gutierrez [facility], [facility] 09/11/2020 3:22PM 4:16PM REVISIT- Routine (OB) Visit Cat Gutierrez [facility], [facility] 09/05/2020 9:37AM 10:00AM TCMNV phone call- NO CHARGE Cat Gutierrez [facility] 09/04/2020 09/05/2020 4:54PM 09/05/2020 11:59PM [Patient Encounter] Cat Gutierrez [facility] 08/31/2020 021 2:21PM 08/22/2020 11:59PM telephone conversation Mihcel Villalba MD 08/2808/22/2020 11:00AM 08/22/2020 11:59PM REVISIT- Routine (OB) Visit Maya Barron MD [facility], [facility] 08/22/2020 1:56PM 2:19PM sick visit Maya Barron MD [facility], [facility] 0 08/15/2020 9:36AM 10:12AM Upper Respiratory Infection Acute, Pollakiuria Obstetrics/ first visit Cat Gutierrez [facility] 08/09/2020 9:22AM 10:56AM followup Cat De Pazing [facility] 0 08/02/2020 10:18AM 11:42AM Generalized Anxiety Disorder , Early Stage, Abdominal Pain telephone conversation Michel Villalba MD 07/26/2020 7:59AM 07/26/2020 11:59PM [Patient Encounter] Cat De Pazing [facility] 07/28/2020 021 2:20PM 07/26/2020 11:59PM followup Maya Barron MD [facility] 0 07/26/2020 10:39AM 11:02AM , Generalized Anxie ty Disorder sick visit Bandar Cleveland PA-C [facility] 3:36PM 4:30PM Pyrexia followup Maya Barron MD [facility] 0 07/19/2020 10:52AM 11:30AM , Generalized Anxie ty Disorder, Pollakiuria followup Maya Barron MD [facility] 1 09/11/2019 10:43AM 11:14AM Atypical Chest Pain, Adjustm ent Disorder followup Maya Barron MD [facility] 1 08/07/2019 10:43AM 10:59AM Missed followup Maya Barron MD [facility] 05/26 1:45PM 2:11PM with Threatened Problem visit - not contagious Maya Barron MD [facility] 05/24/2020 11:13AM 12:00PM with T hreatened [Patient Encounter] Maya Barron MD 05/24/2020 020 10:17AM 04/19/2020 11:59PM followup Maya Barron MD [facility] 1 11:51AM 12:08PM ANNUAL PE-followup Maya Barron MD [facility] 04/10/2020 8:42AM 9:13AM Routine History and Physical Adult (18 - 64 Yrs), Dysmenorrhea sick visit Maya Barron MD [facility] 0 03/06/2020 3:32PM 3:42PM Sinusitis sick visit Maya Barron MD [facility] 0 02/25/2020 10:46AM 11:12AM Pollakiuria, Female Pelvic P ain followup Maya Barron MD [facility] 01/31 2:25PM 2:51PM Back Strain followup Maya Barron MD [facility] 12/26 1:25PM 1:42PM Amenorrhea, Clostridium Difficile sick visit Maya Barron MD [facility] 0 12/07/2019 4:00PM 4:17PM Abdominal Pain sick visit Maya Barron MD [facility] 0 11/22/2019 3:13PM 3:37PM Esophageal Reflux, Abdominal Pain, Generalized Anxiety Disorder sick visit Maya Barron MD [facility] 0 11/15/2019 12:50PM 1:20PM Fatigue, Nausea, Presyncope Syndrome, Generalized Anxiety Disorder sick visit Cat Gutierrez [facility] 0 11/05/2019 11:30AM 11:49AM Atopic Dermatitis Insurance Includes: Active Insurance Policies Plan Name Member ID Group # Subscriber Relationship Effective Da greg 1 - MANAGED MEDICAID [facility] [id number] Georgiana Nguyen 2020 - Unknown Advance Directives Includes: Current Advance DirectivesNo Advance Directives Recorded Health Concerns Includes: Active Health ConcernsNo Active Health Concerns Recorded Goals Includes: Active GoalsNo Active Goals Recorded Interventions Includes: Interventions for active GoalsNo Interventions Recorded Evaluations & Outcomes Includes: Evaluations & Outcomes for active GoalsNo Outcomes Recorded
--- OUTSIDE RECORDS SUMMARY | 2021-04-29 17:08 | CCD ---
Author Author [facility] Organization [facility] Address [address] [place] [address] Phone Care Team Providers Care Production Support Consultant Name Role Phone Anderson GILL, Maya Duke PP [phone] Christopher BLANCHARD, Kimberly Prajapati Unavailable Unavailable Reason [...] state, in [place] 11/20/20 Maya Barron MD Findings Encounter Date Community [...] today. Advised reaching out to social media [employer] for assistance with access to food and necessities [Adjustment disorder with anxiety] followup with Maya Braron MD 07/11/2020 Atypical chest pain ER records [...] history and physical (18 - 64 yrs) [employer] care with women's health, [facility] on health maintenance. Patient now 20 and [...] 10/13 [facility] Female pelvic pain sick visit with [facility] 08/14 Pharyngitis urgent visit with [...] history and physical (18 - 64 yrs) [employer] care with women's [facility], [facility] on health maintenance [Encounter for general adult medical examination with abnormal findings] ANNUAL PE-followup exam with Maya Barron MD 04/07/2019 Vaginal candidiasis sick visit with [facility] 02/11 Pharyngitis urgent visit with Bandar Cleveland PA-C 2018 Sprained ribs ; left sick visit with [facility] Strain of muscle and tendon of front wall of thorax si ck visit with [facility] 10/30/2018 Fracture of fifth cervical vertebral body No Fault with [facility] ellie [facility] 03/04/2018 Late effects of accident No Fault with [facility] 0 03/04/2018 Instructions Instructions not [...] Solution 09/05/2020 - 11/04/2020 Provider: Cat Gutierrez [facility] Diagnosis: Other asthma- reacti ve [...] Results Includes: Results from 11/01/2019 through 10/31/2020 BHCG Quantitative [facility] Ordered by Maya Barron MD on 10/23/2020 Collected: 10/23/2020 Reported: 10/23/2020 01:21 B-HCG SerPl-aCn 30291 MilliInternationalUnitsPerMilliLiter_[Arbitrary_Con (0-10) H (High) Note: @Instrument will [...] are final unless otherwise noted. Reported Physicians [facility] Ordered by Maya Barron MD on 10/23/2020 Collected: 10/23/2020 Reported: 10/23/2020 01:21 Reported Physicians See Note None Note: Reported Physicians:Ordering: Yoli NapolesAttending: Charles Silva To: Maya Barron Reviewed by Maya Barron MD on 10/23; All test results are final unless otherwise noted. CBC W AUTO DIFF [facility] Ordered by Maya Barron MD [...] Auto See Note (0-2) N (Normal) Note: [id number] Ob bartender server: IG% IG% 100.1375 (B) Hct VFr [...] results are final unless otherwise noted. [facility] Ordered by Maya Barron [...] results are final unless otherwise noted. D-DIMER [facility] Ordered by Maya Barron MD [...] are final unless otherwise noted. Reported Physicians [facility] Ordered by Maya Barron MD on 10/23/2020 Collected: 10/23/2020 Reported: 10/23/2020 01:22 Reported Physicians See Note None Note: Reported Physicians:Ordering: Yoli NapolesAttending: Yoli SilvaCopyifan To: Maya Barron Reviewed by Maya Barron MD on 10/23; All test results are final unless otherwise noted. TROPONIN [facility] Ordered by Maya Barron MD on 10/23/2020 Collected: 10/23/2020 Reported: 10/23/2020 01:03 Troponin I SerPl-mCnc Less Than 0.015 (0.00-0.09) N (Normal) Note: Less than 0.09 NG/ML Negative 0.10 - 0.77 NG/ML High Risk0.78 NG/ML or Greater PositiveThe WHO defined the cutoff (definition for diagnosis of DE)for this method as 0.78 ng/ml.Responsible Observer: Troponin I Troponin I 600.1101 (G) Reviewed by Maya Barron MD on 10/23; All test results are final unless otherwise noted. Reported Physicians [facility] Ordered by Maya Barron MD on 10/23/2020 Collected: 10/23/2020 Reported: 10/23/2020 01:03 Reported Physicians See Note None Note: Reported Physicians:Ordering: Yoli NapolesAttending: Charles Silva To: Maya Barron Reviewed by Maya Barron MD on 10/23; All test results are final unless otherwise noted. FREE T4 (LAB) [facility] Ordered by Maya Barron MD on 10/21/2020 Collected: 10/21/2020 Reported: 10/21/2020 15:17 T4 Free SerPl-mCnc 0.97 NanoGramsPerDeciLiter_[Mass_Concentration_Units] (0.89-1.76) N (Normal) Note: Responsible Observer: FREE T4 Free Thyroxine 600.7005 (D) Reviewed by Maya Barron MD on 10/23; All test results are final unless otherwise noted. Reported Physicians [facility] Ordered by Maya Barron MD on 10/21/2020 Collected: 10/21/2020 Reported: 10/21/2020 15:17 Reported Physicians See Note None Note: Reported Physicians:Ordering: Math is, TimothyAttending: Pardo, TimothyCopy To: Maya Barron Reviewed by Maya Barron MD on 10/23; All test results are final unless otherwise noted. TSH [facility] Ordered by Maya Barron MD on 10/21/2020 Collected: 10/21/2020 Reported: 10/21/2020 15:17 TSH SerPl DL<=0.005 mIU/L-aCnc 1.40 MicroInternationalUnitsPerMilliLiter_[Arbitrary_Con (0.35-5. 50) N (Normal) Note: Responsible Observer: TSH TSH 600 .7055 (D) Reviewed by Maya Barron MD on 10/23; All test results are final unless otherwise noted. Reported Physicians [facility] Ordered by Maya Barron MD on 10/21/2020 Collected: 10/21/2020 Reported: 10/21/2020 15:17 Reported Physicians See Note None Note: Reported Physicians:Ordering: Math is, TimothyAttending: Pardo, TimothyCopy To: Maya Barron Reviewed by Maya Barron MD on 10/23; All test results are final unless otherwise noted. UA W/ CULTURE IF ABNORMAL [facility] Ordered by Maya Barron MD on 10/19/2020 Collected: 10/19/2020 Reported: 10/19/2020 16:31 Urobilinogen Ur Ql See Note (0.2-1 EU/dl) None Note: 0.2 EU/dl0.2 EU/[id number] E U/dlResponsible Observer: UROBILINOGEN UROBILINOGEN 300.4500 (C) RBC # Ur Strip NEGATIVE (NEGATIVE) None Note: Responsible Observer: BLOOD BLOOD 300.4652 (C) Prot Ur Ql Strip See Note (NEGATIVE) None Note: [id number] EResponsible Observer: PROTEIN PROTEIN 300.3750 (C) Ketones Ur Ql Strip See Note (NEGATIVE) None Note: [id number] EResponsible Observer: KETONE KETONE 300.3900 (C) Bilirub Ur Ql Strip.auto See Note (NEGATIVE) None Note: [id number] EResponsible Observer: BILIRUBIN BILIRUBIN 300.4550 (C) Glucose Ur Strip.auto-mCnc 100 mg/dl (NEGATIVE) None Note: Responsible Observer: GLUCOSE GLUC OSE 300.3850 (C) Appearance Ur See Note (CLEAR) None Note: CLEARCLEARLCLEARResponsible Observ er: APPEARANCE APPEARANCE 300.3400 (A) Color Ur See Note None Note: YELLOWYELLOWLYELLOWResponsible Obs erver: COLOR COLOR 300.3330 (A) Leukocyte esterase Ur Ql Strip See Note (NEGATIVE) None Note: [id number] EResponsible Observer: LEUKOCYTES LEUKOCYTES 300.3576 (C) Nitrite Ur Ql Strip See Note (NEGATIVE) None Note: [id number] EResponsible Observer: NITRITE NITRITE 300.3652 (B) pH [...] are final unless otherwise noted. Reported Physicians [facility] Ordered by Maya Barron MD on 10/19/2020 Collected: 10/19/2020 Reported: 10/19/2020 16:31 Reported Physicians See Note None Note: Reported Physicians:Ordering: Les Vanegas AAttending: Fady Raza To: Maya Barron Reviewed by Maya Barron MD on 10/20; All test results are final unless otherwise noted. URINE DRUG SCREEN -([facility]) [facility] Ordered by Maya Barron MD on 10/19/2020 Collected: 10/19/2020 Reported: 10/19/2020 16:40 PCP Ur Ql Scn>25 ng/mL See Note (Cutoff 25) None Note: [id number] E@Reenter manual test result: NEGATIVE@by Jia Lentz at 10/19/20 1639.Responsible Observer: PCP Urine Phencyclidine (PCP) Scrn 400.5120 (A) THC Ur Ql Scn>50 ng/mL See Note (Cutoff 50) None Note: [id number] EResponsible Observer: Marijuana (THC) Ur Marijuana (THC) Screen 400.5110 (A) Benzodiaz Ur Ql Scn See Note (Cutoff 150) None Note: [id number] E@Reenter manual test result: NEGATIVE@by Jia Lentz at 10/19/20 1640.Responsible Observer: Benzodiazepines Urine Benzodiazepines Screen 400.5170 (A) Opiates Ur Ql Scn See Note (Cutoff 100) None Note: [id number] E@Reenter manual test result: NEGATIVE@by Jia Lentz at 10/19/20 1640.Responsible Observer: Opiates Urine Opiates Screen 400.5150 (A) Tricyclics Ur Ql Scn See Note (Cutoff 300) None Note: [id number] E@Reenter manual test result: NEGATIVE@by Jia Lentz at 10/19/20 1640.Responsible Observer: TCA Ur Tricyclic Antidepressants 400.5180 (A) Cocaine Ur Ql Scn See Note (Cutoff 150) None Note: [id number] E@Reenter manual test result: NEGATIVE@by Jia Lentz at 10/19/20 1640.Responsible Observer: Cocaine Urine Cocaine Screen 400.5130 (A) Propoxyph+Nor Ur Ql Scn See Note (Cutoff 300) None Note: [id number] E@Reenter manual test result: NEGATIVE@by Jia Lentz at 10/19/20 1640.Responsible Observer: Propoxyphene Urine Propoxyphene Screen 400.5220 (A) Methadone Ur Ql Scn See Note (Cutoff 200) None Note: [id number] E@Reenter manual test result: NEGATIVE@by Jia Lentz at 10/19/20 1640.Responsible Observer: Methadone Urine Methadone Screen 400.5190 (A) Methamphet Ur Ql Scn See Note (Cutoff 500) None Note: [id number] E@Reenter manual test result: NEGATIVE@by Jia Lentz at 10/19/20 1640.Responsible Observer: Methamphetamine Urine Methamphetamines Screen 400.5140 (A) oxyCODONE Ur Ql Scn See Note (Cutoff 100) None Note: [id number] E@Reenter manual test result: NEGATIVE@by Jia Lentz at 10/19/20 1640.Responsible Observer: Oxycodone Urine Oxycodone Screen 400.5210 (A) Buprenorphine Ur Ql See Note (Cutoff 10) None Note: [id number] E@Reenter manual test result: NEGATIVE@by Jia Lentz at 10/19/20 1640.Responsible Observer: Buprenorphine Urine Buprenorphine Screen 400.5230 (A) Amphetamines Ur Ql Scn>500 ng/mL See Note (Cutoff 500) None Note: [id number] E@Reenter manual test result: NEGATIVE@by Jia Lentz at 10/19/20 1640.Responsible Observer: Amphetamines Urine Amphetamines Screen 400.5160 (A) Barbiturates Ur Ql Scn>200 ng/mL See Note (Cutoff 200) None Note: [id number] E@Reenter manual test result: NEGATIVE@by Jia Lentz at 10/19/20 1640.Responsible Observer: Barbiturates Urine Barbiturates 400.5200 (A) Reviewed by Maya Barron MD on 10/20; All test results are final unless otherwise noted. Reported Physicians [facility] Ordered by Maya Barron MD on 10/19/2020 Collected: 10/19/2020 Reported: 10/19/2020 16:40 Reported Physicians See Note None Note: Reported Physicians:Ordering: Les Vanegasding: Fady Raza To: Maya Barron Reviewed by Maya Barron MD on 10/20; All test results are final unless otherwise noted. TSH w/ reflex to Free T4 [facility] Ordered by Maya Barron MD on 10/19/2020 Collected: 10/19/2020 Reported: 10/19/2020 16:08 TSH SerPl DL<=0.005 mIU/L-aCnc 1.66 MicroInternationalUnitsPerMilliLiter_[Arbitrary_Con (0.35-5. 50) N (Normal) Note: Responsible Observer: TSH TSH 600 .7060 (D) Reviewed by Maya Barron MD on 10/20; All test results are final unless otherwise noted. Reported Physicians [facility] Ordered by Maya Barron MD on 10/19/2020 Collected: 10/19/2020 Reported: 10/19/2020 16:08 Reported Physicians See Note None Note: Reported Physicians:Ordering: Les Vanegas: Fady Raza To: Maya Barron Reviewed by Maya Barron MD on 10/20; All test results are final unless otherwise noted. TROPONIN [facility] Ordered by Maya Barron MD on 10/19/2020 Collected: 10/19/2020 Reported: 10/19/2020 16:10 Troponin I SerPl-mCnc Less Than 0.015 (0.00-0.09) N (Normal) Note: Less than 0.09 NG/ML Negative 0.10 - 0.77 NG/ML High Risk0.78 NG/ML or Greater PositiveThe WHO defined the cutoff (definition for diagnosis of DE)for this method as 0.78 ng/ml.Responsible Observer: Troponin I Troponin I 600.1101 (G) Reviewed by Maya Barron MD on 10/20; All test results are final unless otherwise noted. Reported Physicians [facility] Ordered by Maya Barron MD on 10/19/2020 Collected: 10/19/2020 Reported: 10/19/2020 16:10 Reported Physicians See Note None Note: Reported Physicians:Ordering: Les Vanegas: Fady Raza To: Maya Barron Reviewed by Maya Barron MD on 10/20; All test results are final unless otherwise noted. CRP, C-REACTIVE PROTEIN [facility] Ordered by Maya Barron MD on 10/19/2020 Collected: 10/19/2020 Reported: 10/19/2020 16:08 CRP SerPl-mCnc 7.5 MilliGramsPerLiter_[Mass_Concentration_Units] (0.0-5.0) H (High) Note: Responsible Observer: CRP C-Reacti ve Protein 401.4355 (H) Reviewed by Maya Barron MD on 10/20; All test results are final unless otherwise noted. SED RATE [facility] Ordered by Maya Barron MD on 10/19/2020 Collected: 10/19/2020 Reported: 10/19/2020 16:32 ESR Bld Qn Westrgrn 22 (0-20) H (High) Note: @Reenter manual test result: 22@by Jia Lentz at 10/19/20 1632.Responsible Observer: SED RATE SED RATE 100.6400 (B) Reviewed by Maya Barron MD on 10/20; All test results are final unless otherwise noted. Reported Physicians [facility] Ordered by Maya Barron MD on 10/19/2020 Collected: 10/19/2020 Reported: 10/19/2020 16:33 Reported Physicians See Note None Note: Reported Physicians:Ordering: Les Vanegas AAttending: Fady Raza To: Maya Barron Reviewed by Maya Barron MD on 10/20; All test results are final unless otherwise noted. CMP [facility] Ordered by Maya Barron MD [...] unless otherwise noted. CBC W AUTO DIFF [facility] Ordered by Maya Barron MD [...] Auto See Note (0-2) N (Normal) Note: [id number] Ob bartender server: IG% IG% 100.1375 (B) Hct VFr [...] are final unless otherwise noted. Reported Physicians [facility] Ordered by Maya Barron MD on 10/19/2020 Collected: 10/19/2020 Reported: 10/19/2020 16:33 Reported Physicians See Note None Note: Reported Physicians:Ordering: Les Vanegasding: Fady Raza To: Maya Barron Reviewed by Maya Barron MD on 10/20; All test results are final unless otherwise noted. PT/PTT [facility] Ordered by Maya Barron MD [...] are final unless otherwise noted. Reported Physicians [facility] Ordered by Maya Barron MD on 10/08/2020 Collected: 10/08/2020 Reported: 10/08/2020 03:22 Reported Physicians See Note None Note: Reported Physicians:Ordering: Sana Recinosending: Sammie Ann To: Maya Barron Reviewed by Maya Barron MD on 10/09; All test results are final unless otherwise noted. BMP [facility] Ordered by Maya Barron MD [...] are final unless otherwise noted. Reported Physicians [facility] Ordered by Maya Barron MD on 10/08/2020 Collected: 10/08/2020 Reported: 10/08/2020 03:21 Reported Physicians See Note None Note: Reported Physicians:Ordering: Sana Recinosending: Sammie Ann To: Maya Barron Reviewed by Maya Barron MD on 10/09; All test results are final unless otherwise noted. CBC W AUTO DIFF [facility] Ordered by Maya Barron MD [...] Auto See Note (0-2) N (Normal) Note: [id number] Ob bartender server: IG% IG% 100.1375 (B) Hct VFr [...] results are final unless otherwise noted. MAGNESIUM [facility] Ordered by Maya Barron MD on 10/08/2020 Collected: 10/08/2020 Reported: 10/08/2020 03:17 Magnesium SerPl-mCnc 1.8 MilliGramsPerDeciLiter_[Mass_Concentration_Units] (1.3-2.7) N (Normal) Note: Responsible Observer: Magnesium Ma gnesium 400.3300 (G) Reviewed by Maya Barron MD on 10/09; All test results are final unless otherwise noted. D-DIMER [facility] Ordered by Maya Barron MD [...] are final unless otherwise noted. Reported Physicians [facility] Ordered by Maya Barron MD on 10/08/2020 Collected: 10/08/2020 Reported: 10/08/2020 03:27 Reported Physicians See Note None Note: Reported Physicians:Ordering: Sana Recinosending: Sammie Ann To: Maya Barron Reviewed by Maya Barron MD on 10/09; All test results are final unless otherwise noted. TSH w/ reflex to Free T4 [facility] Ordered by Maya Barron MD on 10/04/2020 Collected: 10/04/2020 Reported: 10/04/2020 17:42 TSH SerPl DL<=0.005 mIU/L-aCnc 1.92 MicroInternationalUnitsPerMilliLiter_[Arbitrary_Con (0.35-5. 50) N (Normal) Note: Responsible Observer: TSH TSH 600 .7060 (D) Reviewed by Maya Barron MD on 10/09; All test results are final unless otherwise noted. Reported Physicians [facility] Ordered by Maya Barron MD on 10/04/2020 Collected: 10/04/2020 Reported: 10/04/2020 17:42 Reported Physicians See Note None Note: Reported Physicians:Ordering: Les Vanegasding: Fady Raza To: Maya Barron Reviewed by Maya Barron MD on 10/09; All test results are final unless otherwise noted. CBC W AUTO DIFF [facility] Ordered by Maya Barron MD [...] Auto See Note (0-2) N (Normal) Note: [id number] Ob bartender server: IG% IG% 100.1375 (B) Hct VFr [...] results are final unless otherwise noted. [facility] Ordered by Maya Barron [...] are final unless otherwise noted. Reported Physicians [facility] Ordered by Maya Barron MD on 10/04/2020 Collected: 10/04/2020 Reported: 10/04/2020 17:42 Reported Physicians See Note None Note: Reported Physicians:Ordering: Les Vanegasding: Fady Raza To: Maya Barron Reviewed by Maya Barron MD on 10/09; All test results are final unless otherwise noted. SED RATE [facility] Ordered by Maya Barron MD on 10/04/2020 Collected: 10/04/2020 Reported: 10/04/2020 18:05 ESR Bld Qn Westrgrn 16 (0-20) N (Normal) Note: @Reenter manual test result: 16@by Jia Lentz at 10/04/20 1805.Responsible Observer: SED RATE SED RATE 100.6400 (B) Reviewed by Maya Barron MD on 10/09; All test results are final unless otherwise noted. Reported Physicians [facility] Ordered by Maya Barron MD on 10/04/2020 Collected: 10/04/2020 Reported: 10/04/2020 18:06 Reported Physicians See Note None Note: Reported Physicians:Ordering: Les Vanegasding: Fady Raza To: Maya Barron Reviewed by Maya Barron MD on 10/09; All test results are final unless otherwise noted. TROPONIN [facility] Ordered by Maya Barron MD on 10/04/2020 Collected: 10/04/2020 Reported: 10/04/2020 17:35 Troponin I SerPl-mCnc Less Than 0.015 (0.00-0.09) N (Normal) Note: Less than 0.09 NG/ML Negative 0.10 - 0.77 NG/ML High Risk0.78 NG/ML or Greater PositiveThe WHO defined the cutoff (definition for diagnosis of DE)for this method as 0.78 ng/ml.Responsible Observer: Troponin I Troponin I 600.1101 (G) Reviewed by Maya Barron MD on 10/09; All test results are final unless otherwise noted. Reported Physicians [facility] Ordered by Maya Barron MD on 10/04/2020 Collected: 10/04/2020 Reported: 10/04/2020 17:35 Reported Physicians See Note None Note: Reported Physicians:Ordering: Les Vanegastending: Fady Raza To: Maya Barron Reviewed by Maya Barron MD on 10/09; All test results are final unless otherwise noted. CBC W AUTO DIFF [facility] Ordered by Maya Barron MD [...] Auto See Note (0-2) N (Normal) Note: [id number] Ob bartender server: IG% IG% 100.1375 (B) Hct VFr [...] results are final unless otherwise noted. [facility] Ordered by Maya Barron [...] are final unless otherwise noted. Reported Physicians [facility] Ordered by Maya Barron MD on 10/03/2020 Collected: 10/03/2020 Reported: 10/03/2020 20:03 Reported Physicians See Note None Note: Reported Physicians:Ordering: Yoli NapolesAttending: Charles Silva To: Maya Barron Reviewed by Maya Barron MD on 10/04; All test results are final unless otherwise noted. BHCG Quantitative [facility] Ordered by Maya Barron MD on 10/03/2020 Collected: 10/03/2020 Reported: 10/03/2020 20:23 B-HCG SerPl-aCnc 51427 MilliInternationalUnitsPerMilliLiter_[Arbitrary_Con (0-10) H (High) Note: @Instrument will [...] are final unless otherwise noted. Reported Physicians [facility] Ordered by Maya Barron MD on 10/03/2020 Collected: 10/03/2020 Reported: 10/03/2020 20:23 Reported Physicians See Note None Note: Reported Physicians:Ordering: Yoli NapolesAttending: Charles Silva To: Maya Barron Reviewed by Maya Barron MD on 10/04; All test results are final unless otherwise noted. TROPONIN [facility] Ordered by Maya Barron MD on 10/03/2020 Collected: 10/03/2020 Reported: 10/03/2020 20:07 Troponin I SerPl-mCnc Less Than 0.015 (0.00-0.09) N (Normal) Note: Less than 0.09 NG/ML Negative 0.10 - 0.77 NG/ML High Risk0.78 NG/ML or Greater PositiveThe WHO defined the cutoff (definition for diagnosis of DE)for this method as 0.78 ng/ml.Responsible Observer: Troponin I Troponin I 600.1101 (G) Reviewed by Maya Barron MD on 10/04; All test results are final unless otherwise noted. Reported Physicians [facility] Ordered by Maya Barron MD on 10/03/2020 Collected: 10/03/2020 Reported: 10/03/2020 20:07 Reported Physicians See Note None Note: Reported Physicians:Ordering: Yoli NapolesAttending: Charles Silva To: Maya Barron Reviewed by Maya Barron MD on 10/04; All test results are final unless otherwise noted. MANUAL DIFF [facility] Ordered by Maya Barron MD [...] are final unless otherwise noted. Reported Physicians [facility] Ordered by Maya Barron MD on 10/03/2020 Collected: 10/03/2020 Reported: 10/03/2020 19:56 Reported Physicians See Note None Note: Reported Physicians:Ordering: Yoli NapolesAttending: Yoli SilvaCopyifan To: Maya Barron Reviewed by Maya Barron MD on 10/04; All test results are final unless otherwise noted. FREE T4 (LAB) [facility] Ordered by Maya Barron MD on 10/03/2020 Collected: 10/03/2020 Reported: 10/03/2020 20:08 T4 Free SerPl-mCnc 0.97 NanoGramsPerDeciLiter_[Mass_Concentration_Units] (0.89-1.76) N (Normal) Note: Responsible Observer: FREE T4 Free Thyroxine 600.7005 (D) Reviewed by Maya Barron MD on 10/04; All test results are final unless otherwise noted. Reported Physicians [facility] Ordered by Maya Barron MD on 10/03/2020 Collected: 10/03/2020 Reported: 10/03/2020 20:08 Reported Physicians See Note None Note: Reported Physicians:Ordering: Yoli NapolesAttending: Charles Silva To: Maya Barron Reviewed by Maya Barron MD on 10/04; All test results are final unless otherwise noted. ADD ON MICROSCOPIC [facility] Ordered by Maya Barron MD on 10/03/2020 Collected: 10/03/2020 Reported: 10/03/2020 19:52 ADD ON MICROSCOPIC See Note (0-5) None Note: NOTES OTHER/NOT INTERPRETED Bacteria UrnS Ql Micro SMALL AMOUNT Bacteria UrnS Ql Micro SMALL AMOUNT Bacteria UrnS Ql Micro L Bacteria UrnS Ql Micro Bacteria UrnS Ql Micro Bacteria UrnS Ql Micro Bacteria UrnS Ql Micro [id number] Bacteria UrnS Ql Micro Bacteria UrnS Ql [...] are final unless otherwise noted. Reported Physicians [facility] Ordered by Maya Barron MD on 10/03/2020 Collected: 10/03/2020 Reported: 10/03/2020 19:52 Reported Physicians See Note None Note: Reported Physicians:Ordering: Yoli NapolesAttending: Charles Silva To: Maya Barron Reviewed by Maya Barron MD on 10/04; All test results are final unless otherwise noted. UA W/ CULTURE IF ABNORMAL [facility] Ordered by Maya Barron MD on 10/03/2020 Collected: 10/03/2020 Reported: 10/03/2020 19:52 Urobilinogen Ur Ql See Note (0.2-1 EU/dl) None Note: 0.2 EU/dl0.2 EU/[id number] E U/dlResponsible Observer: UROBILINOGEN UROBILINOGEN 300.4500 (C) RBC # Ur Strip NEGATIVE (NEGATIVE) None Note: Responsible Observer: BLOOD BLOOD 300.4652 (C) Prot Ur Ql Strip See Note (NEGATIVE) None Note: [id number] EResponsible Observer: PROTEIN PROTEIN 300.3750 (C) Ketones Ur Ql Strip See Note (NEGATIVE) None Note: [id number] EResponsible Observer: KETONE KETONE 300.3900 (C) Bilirub Ur Ql Strip.auto See Note (NEGATIVE) None Note: [id number] EResponsible Observer: BILIRUBIN BILIRUBIN 300.4550 (C) Glucose Ur Strip.auto-mCnc NEGATIVE (NEGATIVE) None Note: Responsible Observer: GLUCOSE GLUC OSE 300.3850 (C) Appearance Ur See Note (CLEAR) None Note: CLEARCLEARLCLEARResponsible Observ er: APPEARANCE APPEARANCE 300.3400 (A) Color Ur See Note None Note: YELLOWYELLOWLYELLOWResponsible Obs erver: COLOR COLOR 300.3330 (A) Leukocyte esterase Ur Ql Strip See Note (NEGATIVE) None Note: [id number]@DO MICR O!!!!A Culture has been added to this specimen per established criteriaResponsible Observer: LEUKOCYTES LEUKOCYTES 300.3576 (C) Nitrite Ur Ql Strip See Note (NEGATIVE) None Note: [id number] EResponsible Observer: NITRITE NITRITE 300.3652 (B) pH [...] are final unless otherwise noted. Urine culture [facility] Ordered by Maya Barron MD on 10/03/2020 Collected: 10/03/2020 Reported: 10/04/2020 13:10 Bacteria Ur Cult See Note None Note: NGNo growth.L1NG NOTES See Note None Note: @10/03/201951: Urine culture adde d. RFLXG = CULT.ADD. Reviewed by Maya Barron MD on 10/04; All test results are final unless otherwise noted. Reported Physicians [facility] Ordered by Maya Barron MD on 10/03/2020 Collected: 10/03/2020 Reported: 10/04/2020 13:10 Reported Physicians See Note None Note: Reported Physicians:Ordering: Yoli NapolesAttending: Charles Silva To: Maya Barron Reviewed by Maya Barron MD on 10/04; All test results are final unless otherwise noted. BHCG, QUANTITATIVE [facility] Ordered by Maya Barron MD on 09/18/2020 Collected: 09/18/2020 Reported: 09/18/2020 20:21 B-HCG [facility] 207649 MilliInternationalUnitsPerMilliLiter_[Arbitrary_Con (0-10) H (High) Note: APPROXIMATE GESTATION [...] are final unless otherwise noted. Reported Physicians [facility] Ordered by Maya Barron MD on 09/18/2020 Collected: 09/18/2020 Reported: 09/18/2020 20:22 Reported Physicians See Note None Note: Reported Physicians:Ordering: Yoli NapolesAttending: Charles Silva To: Maya Barron Reviewed by Maya Barron MD on 09/20; All test results are final unless otherwise noted. CBC W AUTO DIFF [facility] Ordered by Maya Barron MD [...] Auto See Note (0-2) N (Normal) Note: [id number] Ob bartender server: IG% IG% 100.1375 (B) Hct VFr [...] results are final unless otherwise noted. [facility] Ordered by Maya Barron [...] are final unless otherwise noted. Reported Physicians [facility] Ordered by Maya Barron MD on 09/18/2020 Collected: 09/18/2020 Reported: 09/18/2020 20:10 Reported Physicians See Note None Note: Reported Physicians:Ordering: Yoli NaoplesAttending: Charles Silva To: Maya Barron Reviewed by Maya Barron MD on 09/20; All test results are final unless otherwise noted. TROPONIN [facility] Ordered by Maya Barron MD on 09/18/2020 Collected: 09/18/2020 Reported: 09/18/2020 20:10 Troponin I SerPl-mCnc Less Than 0.015 (0.00-0.09) N (Normal) Note: Less than 0.09 NG/ML Negative 0.10 - 0.77 NG/ML High Risk0.78 NG/ML or Greater PositiveThe WHO defined the cutoff (definition for diagnosis of DE)for this method as 0.78 ng/ml.Responsible Observer: Troponin I Troponin I 600.1101 (G) Reviewed by Maya Barron MD on 09/20; All test results are final unless otherwise noted. Reported Physicians [facility] Ordered by Maya Barron MD on 09/18/2020 Collected: 09/18/2020 Reported: 09/18/2020 20:10 Reported Physicians See Note None Note: Reported Physicians:Ordering: Yoli NapolesAttending: Charles Silva To: Maya Barron Reviewed by Maya Barron MD on 09/20; All test results are final unless otherwise noted. Urine culture [facility] Ordered by Cat Gutierrez RPA on 09/11/2020 Collected: 09/11/2020 Reported: 09/12/2020 13:11 Bacteria Ur Cult See Note None Note: NGNo growth.L1NG NOTES See Note None Note: GEORGIANA PICKARD IN OTHER NAME IN MEDICAL RECORD Reviewed by Cat Gutierrez RPA on 09/12; All test results are final unless otherwise noted. Reported Physicians [facility] Ordered by Cat Gutierrez RPA on 09/11/2020 Collected: 09/11/2020 Reported: 09/12/2020 13:11 Reported Physicians See Note None Note: Reported Physicians:Ordering: Cat ConwayAttending: Cat Gutierrez Reviewed by Cat Gutierrez RPA on 09/12; All test results are final unless otherwise noted. UA W/ CULTURE IF ABNORMAL [facility] Ordered by Maya Barron MD on 09/10/2020 Collected: 09/10/2020 Reported: 09/10/2020 17:48 Urobilinogen Ur Ql See Note (0.2-1 EU/dl) None Note: 0.2 EU/dl0.2 EU/[id number] E U/dlResponsible Observer: UROBILINOGEN UROBILINOGEN 300.4500 (C) RBC # Ur Strip NEGATIVE (NEGATIVE) None Note: Responsible Observer: BLOOD BLOOD 300.4652 (C) Prot Ur Ql Strip See Note (NEGATIVE) None Note: [id number] EResponsible Observer: PROTEIN PROTEIN 300.3750 (C) Ketones Ur Ql Strip See Note (NEGATIVE) None Note: [id number] ble Observer: KETONE KETONE 300.3900 (C) Bilirub Ur Ql Strip.auto See Note (NEGATIVE) None Note: [id number] EResponsible Observer: BILIRUBIN BILIRUBIN 300.4550 (C) Glucose Ur Strip.auto-mCnc NEGATIVE (NEGATIVE) None Note: Responsible Observer: GLUCOSE GLUC OSE 300.3850 (C) Appearance Ur See Note (CLEAR) None Note: CLEARCLEARLCLEARResponsible Observ er: APPEARANCE APPEARANCE 300.3400 (A) Color Ur See Note None Note: YELLOWYELLOWLYELLOWResponsible Obs erver: COLOR COLOR 300.3330 (A) Leukocyte esterase Ur Ql Strip See Note (NEGATIVE) None Note: [id number] EResponsible Observer: LEUKOCYTES LEUKOCYTES 300.3576 (C) Nitrite Ur Ql Strip See Note (NEGATIVE) None Note: [id number] EResponsible Observer: NITRITE NITRITE 300.3652 (B) pH [...] are final unless otherwise noted. Reported Physicians [facility] Ordered by Maya Barron MD on 09/10/2020 Collected: 09/10/2020 Reported: 09/10/2020 17:48 Reported Physicians See Note None Note: Reported Physicians:Ordering: Les Vanegas AAttending: Fady Raza To: Maya Barron Reviewed by Maya Barron MD on 09/11; All test results are final unless otherwise noted. BHCG, QUANTITATIVE [facility] Ordered by Maya Barron MD on 09/10/2020 Collected: 09/10/2020 Reported: 09/10/2020 15:48 B-HCG [facility] [address] MilliInternationalUnitsPerMilliLiter_[Arbitrary_Con (0-10) H (High) Note: @Instrument will [...] are final unless otherwise noted. Reported Physicians [facility] Ordered by Maya Barron MD on 09/10/2020 Collected: 09/10/2020 Reported: 09/10/2020 15:49 Reported Physicians See Note None Note: Reported Physicians:Ordering: Les Vanegas: Fady Raza To: Maya Barron Reviewed by Maya Barron MD on 09/11; All test results are final unless otherwise noted. ABO/Rh Type [facility] Ordered by Maya Barron MD on 09/10/2020 Collected: 09/10/2020 Reported: 09/10/2020 15:43 Blood bank studies Yes None Note: Responsible Observer: Prev. Histor y? Previous History? 100.0800 (A) Blood Type See Note None Note: OPO PositiveLResponsible Observer: Blood Type Blood Type 110.0950 (C) Reviewed by Maya Barron MD on 09/11; All test results are final unless otherwise noted. Reported Physicians [facility] Ordered by Maya Barron MD on 09/10/2020 Collected: 09/10/2020 Reported: 09/10/2020 15:43 Reported Physicians See Note None Note: Reported Physicians:Ordering: Les Vanegas: Fady Raza To: Maya Barron Reviewed by Maya Barron MD on 09/11; All test results are final unless otherwise noted. COVID QUEST [facility] Ordered by Maya Barron MD [...] findings,re- testing should be considered in [facility] health authorities. Laboratory test results shouldalways be considered in the context of clinicalobservations and epidemiological data in making a finaldiagnosis and patient management decisions.Please review the "Fact Sheets" and FDA authorizedlabeling available for health care providers andpatients using the following websites:https://www.Reactivity .RentJiffy/home/Covid-19/HCP/NAAT/fact-gpztz7fbswx://www.Reactivity.[employer]Jiffy/home/Cov id-19/Patients/NAAT/fact-qhyvh9Yuaz test has been authorized by the FDA under anEmergency Use Authorization (EUA) for use by authorizedlaboratories.Due to the current public health emergency, [facility] is receiving a high volume of samples [...] information about COVID-19 can be foundat the [employer] website:www.[employer].RentJiffy/Covid19.THIS TEST WAS PERFORMED AT:[facility] [address]SOHDEMCLAUDY ONEILLesponsible Observer: COVID-19 COVID-19 ТАТЬЯНА (SARS-CoV-2) [id number] 914.4975 ([facility] [place] [facility]) Reviewed by Maya Barron MD on 08/25; All test results are final unless otherwise noted. Reported Physicians [facility] Ordered by Maya Barron MD on 08/23/2020 Collected: 08/23/2020 Reported: 08/25/2020 03:57 Reported Physicians See Note None Note: Reported Physicians:Ordering: Sana Recinosending: Sammie Ann To: Maya Barron Reviewed by Maya Barron MD on 08/25; All test results are final unless otherwise noted. Rapid Strep [facility] Ordered by Maya Barron MD on 08/15/2020 [address] [place], [address] Collected: 08/15/2020 Reported: 08/15/2020 11:47 tel :[phone] strep antigen normal (negative) N (Normal) Reviewed by Maya Barron MD on 08/15; All test results are final unless otherwise noted. Urinalysis w/out microscopy Office [facility] Ordered by Maya Barron MD on 08/15/2020 [address] [place], [address] Specimen Source: Urine Collected: 08/15/2020 Reporte d: 08/15/2020 11:03 tel:[phone] bilirubin normal (neg) N (Normal) blood normal [...] unless otherwise noted. Extended hours FLU/COV2 NAAT [facility] Ordered by Maya Barron MD on 08/15/2020 Collected: 08/15/2020 Reported: 08/15/2020 15:55 Extended hours FLU/COV2 NAAT See Note None Note: TNPNo Reportable ResultLTNPNo Repo rtable UgwzbcR0NPV NOTES See Note None Note: GEORGIANA PICKARD IN OTHER NAME IN MEDICAL RECORD Reviewed by Maya Barron MD on 08/16; All test results are final unless otherwise noted. Reported Physicians [facility] Ordered by Maya Barron MD on 08/15/2020 Collected: 08/15/2020 Reported: 08/15/2020 15:55 Reported Physicians See Note None Note: Reported Physicians:Ordering: Maya AlvarengaAttending: Maya Barron Reviewed by Maya Barron MD on 08/16; All test results are final unless otherwise noted. Sweta Raquel SARS/FLU [facility] Ordered by Maya Barron MD on 08/15/2020 Collected: 08/15/2020 Reported: 08/15/2020 15:55 Sweta Raquel SARS/FLU See Note None Note: Sweta Raquel is a rapid, automated q ualitative anddifferentiation of Influenza type A,B and YDJY-JMC-4USPL-RT-PCR testNORMAL VALUE IS "NOT DETECTED".Limitations of the sweta raquel Influenza A/B & FMFT-BQS-9jxmxj method.Modifications to manufacturers recommendation and proceduresmay alter performance of the test.Negative results do not preclude Influenza A,B or SARS- VWV8snacxqsicb and should not be used as the [...] out diseases caused by other bacterialor viral pathogens.98904-0AXXV-zcu CoV RNA Resp Ql ТАТЬЯНА+probeLNNSARS SARS-COV-2 NOT [id number]-WLX-6 NOT NNRSNYIG58444-6QCOSL RNA Resp Ql ТАТЬЯНА+probeLNNFLUAInfluenza A Not [id number] A Not Vkhdrzek36256-5VIFST RNA Resp Ql ТАТЬЯНА+probeLNNINBInfluenza B Not [id number] B Not Detected NOTES See Note None Note: GEORGIANA PICKARD IN OTHER NAME IN MEDICAL RECORD Reviewed by Maya Barron MD on 08/18; All test results are final unless otherwise noted. Throat culture [facility] Ordered by Maya Barron MD on 08/15/2020 Collected: 08/15/2020 Reported: 08/17/2020 06:37 Throat culture results Normal Deisy None Reviewed by Maya Barron MD on 08/18; All test results are final unless otherwise noted. Reported Physicians [facility] Ordered by Maya Barron MD on 08/15/2020 Collected: 08/15/2020 Reported: 08/17/2020 06:37 Reported Physicians See Note None Note: Reported Physicians:Ordering: Maya AlvarengaAttending: Maya Barron Reviewed by Maya Barron MD on 08/18; All test results are final unless otherwise noted. HPVI [facility] Ordered by Cat Gutierrez RPA on 08/09/2020 Collected: 08/09/2020 Reported: 08/15/2020 06:53 Thin Prep Vag See Note None Note: See scanned reportSee scanned repo rtLSee scanned reportResponsible Observer: TP w/HPV if ASC Thinprep w/HPV if ASCUS 805.1454 ([facility]) NOTES See Note None Note: BBN93-18Jhlikdczet Technique: BRUS H-SPATULABody Site: CERVIX Reviewed by Cat Gutierrez RPA on 08/15; All test results are final unless otherwise noted. Reported Physicians [facility] Ordered by Cat Gutierrez RPA on 08/09/2020 Collected: 08/09/2020 Reported: 08/15/2020 06:53 Reported Physicians See Note None Note: Reported Physicians:Ordering: Atte nding: Rigo Gutierrez To: Maya Barron Reviewed by Cat Gutierrez RPA on 08/15; All test results are final unless otherwise noted. GCAMP [facility] Ordered by Cat Gutierrez RPA on 08/09/2020 Collected: 08/09/2020 Reported: 08/11/2020 06:52 C trach rRNA XXX Ql ТАТЬЯНА+probe See Note (NOT DETECTED) None Note: NOT DETECTEDNOT [id number] 6NOT DETECTEDResponsible Observer: C.Trach RNA Chlamydia trachomatis DNA-ТАТЬЯНА [id number] 913.9900 ([facility]) N gonorrhoea rRNA XXX Ql ТАТЬЯНА+probe See Note (NOT DETECTED) None Note: NOT DETECTEDNOT [id number] 6NOT DETECTEDResponsible Observer: GC RNA Neisseria gonorrhoeae DNA -ТАТЬЯНА 06247740 913.9904 ([facility] [place] [facility]) Chlamydia/GC DNA Note SEE NOTE None Note: The analytical performance charact eristics of thisassay, when used to test SurePath(TM) specimens have beendetermined by [employer]. The modifications havenot been cleared or approved by the FDA. This assay hasbeen validated pursuant to the CLIA regulations and isused for clinical purposes.For additional information, please refer tohttps://education.Prowl/faq/QNA431(This link is being provided for information/educational purposes only.)THIS TEST WAS PERFORMED AT:[facility] [address]OSEAS MEANS,CLAUDYesponsible Observer: GC/Chlam Note Chlamydia/GC DNA Note [id number] 913.1882 (A) NOTES See Note None Note: PICKARD:IN OTHER NAME IN MEDICAL RECORD Reviewed by Cat Gutierrez RPA on 08/12; All test results are final unless otherwise noted. Reported Physicians [facility] Ordered by Cat Gutierrez RPA on 08/09/2020 Collected: 08/09/2020 Reported: 08/11/2020 06:52 Reported Physicians See Note None Note: Reported Physicians:Ordering: Atte nding: Rigo Gutierrez To: Maya Barron Reviewed by Cat Gutierrez RPA on 08/12; All test results are final unless otherwise noted. AFFIRM [facility] Ordered by Cat Gutierrez RPA on 08/09/2020 Collected: 08/09/2020 Reported: 08/11/2020 06:52 Dionna species DNA Probe NOT DETECTED (NOT DETECTED) None Note: THIS TEST WAS PERFORMED AT:[facility] [address]QCXRBC MERATI,CLAUDYesponsible Observer: Dionna DNA Dionna species DNA Probe [id number] 913.5432 ([facility] [place] [facility]) Gardnerella DNA Probe DETECTED (NOT DETECTED) H (High) Note: Increased levels of G. vaginalis m ay not be significantin the absence of signs and symptoms of bacterialvaginosis.Responsible Observer: Gardnerella DNA Gardnerella DNA Probe [id number] 645.1001 ([facility] [place] [facility]) Trichomonas DNA Probe NOT DETECTED (NOT DETECTED) None Note: Responsible Observer: Trichomonas DNA Trichomonas DNA Probe [id number] 122.2444 ([facility]) NOTES See Note None Note: PICKARD:IN OTHER NAME IN MEDICAL RECORD Reviewed on 08/11/2020; All test result s are final unless otherwise noted. Reported Physicians [facility] Ordered by Cat Gutierrez RPA on 08/09/2020 Collected: 08/09/2020 Reported: 08/11/2020 06:52 Reported Physicians See Note None Note: Reported Physicians:Ordering: Atte oralia: Rigo Gutierrez To: Maya Barron Reviewed on 08/11/2020; All test result s are final unless otherwise noted. ADD ON MICROSCOPIC [facility] Ordered by Cat Gutierrez RPA on 08/09/2020 Collected: 08/09/2020 Reported: 08/09/2020 12:23 ADD ON MICROSCOPIC See Note (0-5) H (High) Note: NOTES OTHER/NOT INTERPRETED Bacteria UrnS Ql Micro SMALL AMOUNT Bacteria UrnS Ql Micro SMALL AMOUNT Bacteria UrnS Ql Micro L Bacteria UrnS Ql Micro Bacteria UrnS Ql Micro Bacteria UrnS Ql Micro Bacteria UrnS Ql Micro [id number] Bacteria UrnS Ql Micro Bacteria UrnS Ql [...] Ql Micro Mucous Threads UrnS Ql Micro 0565496099 Mucous Threads UrnS Ql Micro Mucous Threads UrnS Ql Micro MODERATE AMOUNT WBC # Ur Manual 5-8 @08/09/20 1210: UA W/ MICRO added. RFLXG = UMIC.Method of Collection:: Clean CatchResponsible Observer: WBC WBC 300.5000 (A) Reviewed by Cat Gutierrez [facility] on 08/12; All test results are final unless otherwise noted. Reported Physicians [facility] Ordered by Cat Gutierrez [facility] on 08/09/2020 Collected: 08/09/2020 Reported: 08/10/2020 17:47 Reported Physicians See Note None Note: Reported Physicians:Ordering: Atte oralia: Rigo Gutierrez To: Maya Barron Reviewed by Cat Gutierrez [facility] on 08/12; All test results are final unless otherwise noted. MEDMATCH [facility] Ordered by Cat Gutierrez [facility] on 08/09/2020 Collected: 08/09/2020 Reported: 08/13/2020 15:56 MEDMATCH See scanned report None Note: Responsible Observer: MEDMATCH MED MATCH 910.07375 ([facility]) Reviewed by Cat Gutierrez [facility] on 08/14; All test results are final unless otherwise noted. Reported Physicians [facility] Ordered by Cat Gutierrez [facility] on 08/09/2020 Collected: 08/09/2020 Reported: 08/13/2020 15:56 Reported Physicians See Note None Note: Reported Physicians:Ordering: Atte oralia: Rigo Gutierrez To: Maya Barron Reviewed by Cat Gutierrez [facility] on 08/14; All test results are final unless otherwise noted. URINALYSIS [facility] Ordered by Cat Gutierrez [facility] on 08/09/2020 Collected: 08/09/2020 Reported: 08/09/2020 12:23 Urobilinogen Ur Ql See Note (0.2-1 EU/dl) None Note: 1 EU/dl1 EU/[id number] EU/dlRe sponsible Observer: UROBILINOGEN UROBILINOGEN 300.4500 (C) RBC # Ur Strip NEGATIVE (NEGATIVE) None Note: Responsible Observer: BLOOD BLOOD 300.4650 (C) Prot Ur Ql Strip See Note (NEGATIVE) None Note: [id number] ble Observer: PROTEIN PROTEIN 300.3750 (C) Ketones Ur Ql Strip See Note (NEGATIVE) None Note: [id number] ble Observer: KETONE KETONE 300.3900 (C) Bilirub Ur Ql Strip.auto See Note (NEGATIVE) None Note: [id number] EResponsible Observer: BILIRUBIN BILIRUBIN 300.4550 (C) Glucose Ur Strip.auto-mCnc NEGATIVE (NEGATIVE) None Note: Responsible Observer: GLUCOSE GLUC OSE 300.3850 (C) Appearance Ur See Note (CLEAR) None Note: CLEARCLEARLCLEARResponsible Observ er: APPEARANCE APPEARANCE 300.3400 (A) Color Ur See Note None Note: DARK YELLOWDARK YELLOWLDARK YELLOW Responsible Observer: COLOR COLOR 300.3300 (A) Leukocyte esterase Ur Ql Strip See Note (NEGATIVE) None Note: [id number]@DO MICR O!!!!Responsible Observer: LEUKOCYTES LEUKOCYTES 300.3575 (C) Nitrite Ur Ql Strip See Note (NEGATIVE) None Note: [id number] EResponsible Observer: NITRITE NITRITE 300.3650 (B) pH [...] are final unless otherwise noted. Urine culture [facility] Ordered by Cat Gutierrez RPA on 08/09/2020 Collected: 08/09/2020 Reported: 08/10/2020 08:33 Bacteria Ur Cult See Note None Note: NGNo growth.L1NG Reviewed by Cat Gutierrez RPA on 08/14; All test results are final unless otherwise noted. Type and Screen [facility] Ordered by Cat Gutierrez RPA [...] are final unless otherwise noted. Reported Physicians [facility] Ordered by Cat Gutierrez RPA on 08/09/2020 Collected: 08/09/2020 Reported: 08/09/2020 12:39 Reported Physicians See Note None Note: Reported Physicians:Ordering: Cat ConwayAttending: Rigo Gutierrez To: Maya Barron Reviewed by Cat Gutierrez RPA on 08/10; All test results are final unless otherwise noted. Varicella-Zoster IgG Antibody [facility] Ordered by Cat Gutierrez RPA [...] Antibody Immunity Screen, ACIF.THIS TEST WAS PERFORMED AT:[facility] [address]TATSKJ ME RATI,MDResponsible Observer: VARICELLA IGG Varicella-Zoster IgG Antibody [id number] 567.1039 ([facility] [employer] [facility]) NOTES See Note None Note: Patient Street Address: [address] [place] [address]Patient [place] Zip Code: [address]O[place]cv Reviewed by Cat Gutierrez RPA on 08/12; All test results are final unless otherwise noted. HCV RFX ТАТЬЯНА [facility] Ordered by Cat Gutierrez RPA on 08/09/2020 Collected: 08/09/2020 Reported: 08/10/2020 17:47 HCV Ab Ser Ql See Note (NON-REACTIVE) None Note: EWZ-WXBLQUXDZXY-[id number] 7NON-REACTIVEResponsible Observer: HEP C ANTIBODY Hepatitis C Antibody [id number] 914.8305 ([facility]) HCV RNA Qualitative (ТАТЬЯНА) 0.54 (<1.00) None Note: HCV antibody was non-reactive. The re is no laboratoryevidence of HCV infection.In most cases, no further action is required. However,if recent HCV exposure is suspected, a test for HCV RNA(test code 65193) is suggested.For additional information please refer tohttp://education.Prowl/faq/CRD32x0(This link is being provided for informational/educational purposes only.)[facility] TEST [facility]FOR[facility] [id number]CLAUDY ONEILLesponsible Observer: SIG TO C/O SIGNAL TO CUTOFF [id number] 917.1967 ([facility]) NOTES See Note None Note: Patient Street Address: [address] [place], [place] [address] Zip Code: [address]Pmcrpnx Reviewed by Cat Gutierrez RPA on 08/12; All test results are final unless otherwise noted. Reported Physicians [facility] Ordered by Cat Gutierrez RPA on 08/09/2020 Collected: 08/09/2020 Reported: 08/10/2020 17:47 Reported Physicians See Note None Note: Reported Physicians:Ordering: Atte memeing: Rigo Gutierrez To: Maya Barron Reviewed by Cat Gutierrez RPA on 08/12; All test results are final unless otherwise noted. CBC [facility] Ordered by Cat Gutierrez RPA [...] Auto See Note (0-2) N (Normal) Note: 0.20.1M74880003819.2Responsible Ob bartender server: IG% IG% 100.1375 (B) Hct VFr [...] results are final unless otherwise noted. TSH [facility] Ordered by Cat Gutierrez RPA on 08/09/2020 Collected: 08/09/2020 Reported: 08/09/2020 14:24 TSH SerPl DL<=0.005 mIU/L-aCnc 1.18 MicroInternationalUnitsPerMilliLiter_[Arbitrary_Con (0.35-5. 50) N (Normal) Note: Responsible Observer: TSH TSH 600 .7055 (D) Reviewed by Cat Gutierrez RPA on 08/14; All test results are final unless otherwise noted. Lead (Venous) Wh.Bld [facility] Ordered by Cat Gutierrez RPA on 08/09/2020 Collected: 08/09/2020 Reported: 08/10/2020 17:47 Lead Bld-sCnc <1 (<5) None Note: See Note 1Note 1This test was faith granados and its analytical performancecharacteristics have been determined by [employer]. It has not been cleared or approved by theA. This assay has been validated pursuant to the CLIAregulations and is used for clinical purposes.THIS TEST WAS PERFORMED AT:[facility] [id number] MERATI,MDResponsible Observer: Lead, WB Lead, Whole Blood [id number] 911.2190 ([facility]) NOTES See Note None Note: Patient Street Address: [address] [place] [address] [address] [place] [facility] Zip Code: [address]Tgmknzu Reviewed by Cat Gutierrez RPA on 08/14; All test results are final unless otherwise noted. ncPN REF [facility] Ordered by Cat Gutierrez RPA on 08/09/2020 Collected: 08/09/2020 Reported: 08/13/2020 15:26 T pallidum Ab Ser Ql Aggl See Note (Nonreactive) None Note: [id number] onreactiveResponsible Observer: TP-PA Treponema pallidum Ab (TP-PA) [id number] 908.0286 ([facility]) HIV1 RNA SerPl Ql ТАТЬЯНА+probe See Note None Note: TNPNo Reportable ResultLTNPNo Repo rtable ResultLLEP.LIVENTNPResponsible Observer: HIV 1 RNA, QL T HIV 1 RNA, QL TMA [id number] 908.0254 ([facility]) HBV surface Ag SerPl Ql IA See Note (NON-REACTIVE) None Note: [id number]-REACTIVEResponsible Observer: HBSAG Hepatitis B Surface Antigen [id number] 910.2004 ([facility]) RUBV IgG SerPl IA-aCnc 1.76 None Note: Index Interpretatio n ----- <0.90 Not consistent with immunity 0.90-0.99 Equivocal > or = 1.00 Consistent with immunityThe presence of rubella IgG antibody suggestsimmunization or past or current infection withrubella virus.THIS TEST WAS PERFORMED AT:[facility] [address]MAJNKU MERATI,MDResponsible Observer: Rubella IgG Ab Rubella IgG Ab [id number] 911.2840 ([facility]) HIV1 Ab SerPlBld Ql IA.rapid See Note None Note: TNPNo Reportable ResultLTNPNo Repo rtable ResultLLEP.LIVENTNPResponsible Observer: HIV 1 AB HIV 1 AB [id number] 908.0250 ([facility]) HBsAg Confirmation See Note None Note: TNPNo Reportable ResultLTNPNo Repo rtable ResultLLEP.LIVENTNPResponsible Observer: HBsAg Confirm HBsAg Confirmation [id number] 910.2006 ([facility]) HIV (1&2) Screen, 4th Gen [...] for this purpose.For additional information please refer tohttp://education.Prowl/faq/KET769(This link is being provided for informational/educational purposes only.)The performance of this assay has not been clinicallyvalidated in patients less than 2 years old.THIS TEST WAS PERFORMED AT:[facility] [address]OJRCZDCLAUDY ONEILLesponsible Observer: HIV ABS HIV (1&2) Screen, 4th Gen [id number] 908.9869 ([facility]) Reviewed by Cat Gutierrez RPA on 08/14; All test results are final unless otherwise noted. Reported Physicians [facility] Ordered by Cat Gutierrez RPA on 08/09/2020 Collected: 08/09/2020 Reported: 08/13/2020 15:27 Reported Physicians See Note None Note: Reported Physicians:Ordering: Attchandler barton: Rigo Gutierrez To: Maya Barron Reviewed by Cat Gutierrez RPA on 08/14; All test results are final unless otherwise noted. BHCG, QUANTITATIVE [facility] Ordered by Cat Gutierrez RPA on 08/08/2020 Collected: 08/08/2020 Reported: 08/08/2020 11:53 B-HCG [facility] [address] MilliInternationalUnitsPerMilliLiter_[Arbitrary_Con (0-10) H (High) Note: @Instrument will [...] are final unless otherwise noted. Reported Physicians [facility] Ordered by Cat Gutierrez RPA on 08/08/2020 Collected: 08/08/2020 Reported: 08/08/2020 11:54 Reported Physicians See Note None Note: Reported Physicians:Ordering: Jannet barton: Rigo Gutierrez To: Maya Barron Reviewed by Cat Gutierrez RPA on 08/08; All test results are final unless otherwise noted. Type and Screen [facility] Ordered by Cat Gutierrez RPA [...] are final unless otherwise noted. Reported Physicians [facility] Ordered by Cat Gutierrez RPA on 08/01/2020 Collected: 08/01/2020 Reported: 08/01/2020 06:03 Reported Physicians See Note None Note: Reported Physicians:Ordering: Aj Ferreiraending: Jos Rivas To: Maya Barron Reviewed by Cat Gutierrez [facility] on 08/01; All test results are final unless otherwise noted. BHCG, QUANTITATIVE [facility] Ordered by Cat Gutierrez RPA on 08/01/2020 Collected: 08/01/2020 Reported: 08/01/2020 02:26 [facility] [address] MilliInternationalUnitsPerMilliLiter_[Arbitrary_Con (0-10) H (High) Note: @Instrument will [...] are final unless otherwise noted. Reported Physicians [facility] Ordered by Cat Gutierrez RPA on 08/01/2020 Collected: 08/01/2020 Reported: 08/01/2020 02:26 Reported Physicians See Note None Note: Reported Physicians:Ordering: Aj Ferreiraending: Jos Rivas To: Maya Barron Reviewed by Cat Gutierrez RPA on 08/01; All test results are final unless otherwise noted. 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 [facility] Ordered by Cat Gutierrez [...] are final unless otherwise noted. Reported Physicians [facility] Ordered by Cat Gutierrez RPA on 08/01/2020 Collected: 08/01/2020 Reported: 08/01/2020 02:26 Reported Physicians See Note None Note: Reported Physicians:Ordering: Aj Ferreiraending: Jos Rivas To: Maya Barron Reviewed by Cat Gutierrez RPA on 08/01; All test results are final unless otherwise noted. UA W/ CULTURE IF ABNORMAL [facility] Ordered by Cat Gutierrez RPA on 08/01/2020 Collected: 08/01/2020 Reported: 08/01/2020 01:01 Urobilinogen Ur Ql See Note (0.2-1 EU/dl) None Note: 0.2 EU/dl0.2 EU/[id number] E U/dlResponsible Observer: UROBILINOGEN UROBILINOGEN 300.4500 (C) RBC # Ur Strip SMALL (NEGATIVE) None Note: @DO MICRO!!!!Responsible Observer: BLOOD BLOOD 300.4652 (C) Prot Ur Ql Strip See Note (NEGATIVE) None Note: [id number] EResponsible Observer: PROTEIN PROTEIN 300.3750 (C) Ketones Ur Ql Strip See Note (NEGATIVE) None Note: 15 mg/dL15 mg/sEM370419419804 mg/d LResponsible Observer: KETONE KETONE 300.3900 (C) Bilirub Ur Ql Strip.auto See Note (NEGATIVE) None Note: [id number] EResponsible Observer: BILIRUBIN BILIRUBIN 300.4550 (C) Glucose Ur Strip.auto-mCnc NEGATIVE (NEGATIVE) None Note: Responsible Observer: GLUCOSE GLUC OSE 300.3850 (C) Appearance Ur See Note (CLEAR) None Note: CLEARCLEARLCLEARResponsible Observ er: APPEARANCE APPEARANCE 300.3400 (A) Color Ur See Note None Note: YELLOWYELLOWLYELLOWResponsible Obs erver: COLOR COLOR 300.3330 (A) Leukocyte esterase Ur Ql Strip See Note (NEGATIVE) None Note: [id number]@DO MICR O!!!!A Culture has been added to this specimen per established criteriaResponsible Observer: LEUKOCYTES LEUKOCYTES 300.3576 (C) Nitrite Ur Ql Strip See Note (NEGATIVE) None Note: [id number] EResponsible Observer: NITRITE NITRITE 300.3652 (B) pH [...] are final unless otherwise noted. Urine culture [facility] Ordered by Cat Gutierrez [facility] [...] are final unless otherwise noted. Reported Physicians [facility] Ordered by Cat Gutierrez [facility] on 08/01/2020 Collected: 08/01/2020 Reported: 08/02/2020 07:41 Reported Physicians See Note None Note: Reported Physicians:Ordering: Aj Ferreiraending: Jos Rivas To: Maya Barron Reviewed by Cat Gutierrez [facility] on 08/02; All test results are final unless otherwise noted. ADD ON MICROSCOPIC [facility] Ordered by Cat Gutierrez RPA on 08/01/2020 Collected: 08/01/2020 Reported: 08/01/2020 01:01 ADD ON MICROSCOPIC See Note (0-5) None Note: NOTES OTHER/NOT INTERPRETED Bacteria UrnS Ql Micro MODERATE AMOUNT Bacteria UrnS Ql Micro MODERATE AMOUNT Bacteria UrnS Ql Micro L Bacteria UrnS Ql Micro Bacteria UrnS Ql Micro Bacteria UrnS Ql Micro Bacteria UrnS Ql Micro [id number] Bacteria UrnS Ql Micro Bacteria UrnS Ql [...] are final unless otherwise noted. Reported Physicians [facility] Ordered by Cat Gutierrez [facility] on 08/01/2020 Collected: 08/01/2020 Reported: 08/01/2020 01:01 Reported Physicians See Note None Note: Reported Physicians:Ordering: Aj Ferreiraending: Jos Rivas To: Maya Barron Reviewed by Cat Gutierrez RPA on 08/01; All test results are final unless otherwise noted. BHCG, QUANTITATIVE [facility] Ordered by Cat Gutierrez RPA on 07/31/2020 Collected: 07/31/2020 Reported: 07/31/2020 16:53 B-HCG SerPl-aCnc [address] MilliInternationalUnitsPerMilliLiter_[Arbitrary_Con (0-10) H (High) Note: @Instrument will [...] are final unless otherwise noted. Reported Physicians [facility] Ordered by Cat Gutierrez RPA on 07/31/2020 Collected: 07/31/2020 Reported: 07/31/2020 16:53 Reported Physicians See Note None Note: Reported Physicians:Ordering: Atte memeing: Cat Gutierrez Reviewed by Cat Gutierrez RPA on 08/01; All test results are final unless otherwise noted. UA W/ CULTURE IF ABNORMAL [facility] Ordered by Cat Gutierrez RPA on 07/27/2020 Collected: 07/27/2020 Reported: 07/27/2020 21:36 Urobilinogen Ur Ql See Note (0.2-1 EU/dl) None Note: 0.2 EU/dl0.2 EU/aqM07712982130.2 E U/dlResponsible Observer: UROBILINOGEN UROBILINOGEN 300.4500 (C) RBC # Ur Strip NEGATIVE (NEGATIVE) None Note: Responsible Observer: BLOOD BLOOD 300.4652 (C) Prot Ur Ql Strip See Note (NEGATIVE) None Note: [id number] EResponsible Observer: PROTEIN PROTEIN 300.3750 (C) Ketones Ur Ql Strip See Note (NEGATIVE) None Note: [id number] EResponsible Observer: KETONE KETONE 300.3900 (C) Bilirub Ur Ql Strip.auto See Note (NEGATIVE) None Note: [id number] EResponsible Observer: BILIRUBIN BILIRUBIN 300.4550 (C) Glucose Ur Strip.auto-mCnc NEGATIVE (NEGATIVE) None Note: Responsible Observer: GLUCOSE GLUC OSE 300.3850 (C) Appearance Ur See Note (CLEAR) None Note: CLEARCLEARLCLEARResponsible Observ er: APPEARANCE APPEARANCE 300.3400 (A) Color Ur See Note None Note: YELLOWYELLOWLYELLOWResponsible Obs erver: COLOR COLOR 300.3330 (A) Leukocyte esterase Ur Ql Strip See Note (NEGATIVE) None Note: [id number]@DO MICR O!!!!A Culture has been added to this specimen per established criteriaResponsible Observer: LEUKOCYTES LEUKOCYTES 300.3576 (C) Nitrite Ur Ql Strip See Note (NEGATIVE) None Note: [id number] EResponsible Observer: NITRITE NITRITE 300.3652 (B) pH [...] are final unless otherwise noted. Urine culture [facility] Ordered by Cat Brenda [facility] on 07/27/2020 Collected: 07/27/2020 Reported: 07/29/2020 07:36 Urine culture result 50,000 CFU/ML Lactobacilli no senst done None NOTES See Note None Note: @07/27/202136: Urine culture adde d. RFLXG = CULT.ADD. Reviewed by Cat Brenda [facility] on 07/31; All test results are final unless otherwise noted. Reported Physicians [facility] Ordered by Cat Brenda [facility] on 07/27/2020 Collected: 07/27/2020 Reported: 07/29/2020 07:37 Reported Physicians See Note None Note: Reported Physicians:Ordering: Daquan BustamanteAttending: Ariella Good To: Maya Barron Reviewed by Cat Gutierrez [facility] on 07/31; All test results are final unless otherwise noted. ADD ON MICROSCOPIC [facility] Ordered by Cat Gutierrez [facility] on 07/27/2020 Collected: 07/27/2020 Reported: 07/27/2020 21:36 ADD ON MICROSCOPIC See Note (0-5) None Note: NOTES OTHER/NOT INTERPRETED Bacteria UrnS Ql Micro SMALL AMOUNT Bacteria UrnS Ql Micro SMALL AMOUNT Bacteria UrnS Ql Micro L Bacteria UrnS Ql Micro Bacteria UrnS Ql Micro Bacteria UrnS Ql Micro Bacteria UrnS Ql Micro [id number] Bacteria UrnS Ql Micro Bacteria UrnS Ql [...] WBC 300.5005 (A) Reviewed by Cat Gutierrez [facility] on 07/28; All test results are final unless otherwise noted. Reported Physicians [facility] Ordered by Cat Gutierrez [facility] on 07/27/2020 Collected: 07/27/2020 Reported: 07/27/2020 21:37 Reported Physicians See Note None Note: Reported Physicians:Ordering: Daquan BustamanteAttending: Daquan GoodCopyifan To: Maya Barron Reviewed by Cat Gutierrez [facility] on 07/28; All test results are final unless otherwise noted. BHCG, QUANTITATIVE [facility] Ordered by Cat Gutierrez [facility] [...] are final unless otherwise noted. Reported Physicians [facility] Ordered by Cat Gutierrez RPA on 07/27/2020 Collected: 07/27/2020 Reported: 07/27/2020 22:08 Reported Physicians See Note None Note: Reported Physicians:Ordering: Daquan BustamanteAttending: Daquan GoodCopyifan To: Maya Barron Reviewed by Cat Gutierrez RPA on 07/28; All test results are final unless otherwise noted. CMP [facility] Ordered by Cat Gutierrez RPA [...] reatinine 400.1600 (G) Reviewed by Cat Gutierrez [facility] on 07/28; All test results are final unless otherwise noted. Reported Physicians [facility] Ordered by Cat Gutierrez [facility] on 07/27/2020 Collected: 07/27/2020 Reported: 07/27/2020 20:37 Reported Physicians See Note None Note: Reported Physicians:Ordering: Daquan BustamanteAttending: Daquan GoodCopy To: Maya Barron Reviewed by Cat Gutierrez [facility] on 07/28; All test results are final unless otherwise noted. Type and Screen [facility] Ordered by Cat Gutierrez [facility] [...] are final unless otherwise noted. Reported Physicians [facility] Ordered by Cat Gutierrez [facility] on 07/27/2020 Collected: 07/27/2020 Reported: 07/27/2020 20:48 Reported Physicians See Note None Note: Reported Physicians:Ordering: Daquan BustamanteAttending: Daquan GoodCopy To: Maya Barron Reviewed by Cat Gutierrez [facility] on 07/28; All test results are final unless otherwise noted. 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 Reported Physicians [facility] Ordered by Cat Gutierrez RPA on 07/27/2020 Collected: 07/27/2020 Reported: 07/27/2020 20:11 Reported Physicians See Note None Note: Reported Physicians:Ordering: Daquan BustamanteAttending: Ariella Good To: Maya Barron Reviewed by Cat Gutierrez RPA on 07/28; All test results are final unless otherwise noted. BHCG, QUANTITATIVE [facility] Ordered by Maya Barron MD [...] are final unless otherwise noted. Reported Physicians [facility] Ordered by Maya Barron MD on 07/26/2020 Collected: 07/26/2020 Reported: 07/26/2020 16:48 Reported Physicians See Note None Note: Reported Physicians:Ordering: Maya AlvarengaAttending: Maya Barron Reviewed by Maya Barron MD on 07/27; All test results are final unless otherwise noted. Extended hours FLU/COV2 NAAT [facility] Ordered by Bandar Cleveland PA-C on 07/25/2020 Collected: 07/25/2020 Reported: 07/25/2020 18:47 Extended hours FLU/COV2 NAAT See Note None Note: TNPNo Reportable ResultLTNPNo Repo rtable ZaltlwR4ZED Reviewed by Bandar Cleveland PA-C on 1; All test results are final unless otherwise noted. Reported Physicians [facility] Ordered by Bandar Cleveland PA-C on 07/25/2020 Collected: 07/25/2020 Reported: 07/25/2020 18:47 Reported Physicians See Note None Note: Reported Physicians:Ordering: Janice Wilsonending: Kami Cleveland To: Health, Public Reviewed by Bandar Cleveland PA-C on 1; All test results are final unless otherwise noted. Sweta Raquel SARS/FLU [facility] Ordered by Bandar Cleveland PA-C on 07/25/2020 Collected: 07/25/2020 Reported: 07/25/2020 18:47 Sweta Raquel SARS/FLU See Note None Note: Sweta Raquel is a rapid, automated q ualitative anddifferentiation of Influenza type A,B and VQAW-XFU-2LUMZ-RT-PCR testNORMAL VALUE IS "NOT DETECTED".Limitations of the sweta raquel Influenza A/B & FEKU-NYY-2rtojl method.Modifications to manufacturers recommendation and proceduresmay alter performance of the test.Negative results do not preclude Influenza A,B or SARS- RYJ6cwphlpahlr and should not be used as the [...] out diseases caused by other bacterialor viral pathogens.94376-7TZJR-ZyZ-1 RNA Resp Ql ТАТЬЯНА+probeLNNOSNo O rganisms [id number] Organisms Detected Reviewed by Bandar Cleveland PA-C on 1; All test results are final unless otherwise noted. Reported Physicians [facility] Ordered by Bandar Cleveland PA-C on 07/25/2020 Collected: 07/25/2020 Reported: 07/25/2020 18:47 Reported Physicians See Note None Note: Reported Physicians:Ordering: Janice Wilsonending: Kami Cleveland To: Health, Public Reviewed by Bandar Cleveland PA-C on ; All test results are final unless otherwise noted. CBC W AUTO DIFF [facility] Ordered by Maya Barron MD [...] Auto See Note (0-2) N (Normal) Note: 0.30.9Y32813561130.3Responsible Ob bartender server: IG% IG% 100.1375 (B) Hct VFr [...] test results are final unless otherwise noted. [facility] Ordered by Maya [...] are final unless otherwise noted. Reported Physicians [facility] Ordered by Maya Barron MD on 07/22/2020 Collected: 07/22/2020 Reported: 07/22/2020 02:00 Reported Physicians See Note None Note: Reported Physicians:Ordering: Hong LandaverdeAttending: Alon Douglas To: Maya Barron Reviewed by Maya Barron MD on 07/24; All test results are final unless otherwise noted. Extended hours FLU/COV2 NAAT [facility] Ordered by Maya Barron MD on 07/22/2020 Collected: 07/22/2020 Reported: 07/22/2020 01:29 Extended hours FLU/COV2 NAAT See Note None Note: TNPNo Reportable ResultLTNPNo Repo rtable LwwyfpP9FHC Reviewed by Maya Barron MD on 07/24; All test results are final unless otherwise noted. Reported Physicians [facility] Ordered by Maya Barron MD on 07/22/2020 Collected: 07/22/2020 Reported: 07/22/2020 01:29 Reported Physicians See Note None Note: Reported Physicians:Ordering: Hong LandaverdeAttending: Alon Douglas To: Maya Barron Reviewed by Maya Barron MD on 07/24; All test results are final unless otherwise noted. Sweta Raquel SARS/FLU [facility] Ordered by Maya Barron MD on 07/22/2020 Collected: 07/22/2020 Reported: 07/22/2020 01:29 Sweta Raquel SARS/FLU See Note None Note: Sweta Raquel is a rapid, automated q ualitative anddifferentiation of Influenza type A,B and LFWC-NIG-0ZNPH-RT-PCR testNORMAL VALUE IS "NOT DETECTED".Limitations of the sweta raquel Influenza A/B & DPLT-NGP-1zmuep method.Modifications to manufacturers recommendation and proceduresmay alter performance of the test.Negative results do not preclude Influenza A,B or SARS- XDA4httmremnfn and should not be used as the [...] out diseases caused by other bacterialor viral pathogens.59965-4BZNQ-WbW-3 RNA Resp Ql ТАТЬЯНА+probeLNNOSNo O rganisms [id number] Organisms Detected Reviewed by Maya Barron MD on 07/24; All test results are final unless otherwise noted. Reported Physicians [facility] Ordered by Maya Barron MD on 07/22/2020 Collected: 07/22/2020 Reported: 07/22/2020 01:29 Reported Physicians See Note None Note: Reported Physicians:Ordering: Dominic Landaverdeending: Alon Douglas To: Maya Barron Reviewed by Maya Barron MD on 07/24; All test results are final unless otherwise noted. UA W/ CULTURE IF ABNORMAL [facility] Ordered by Maya Barron MD on 07/22/2020 Collected: 07/22/2020 Reported: 07/22/2020 01:10 Urobilinogen Ur Ql See Note (0.2-1 EU/dl) None Note: 0.2 EU/dl0.2 EU/mmN77555696140.2 E U/dlResponsible Observer: UROBILINOGEN UROBILINOGEN 300.4500 (C) RBC # Ur Strip NEGATIVE (NEGATIVE) None Note: Responsible Observer: BLOOD BLOOD 300.4652 (C) Prot Ur Ql Strip See Note (NEGATIVE) None Note: [id number] EResponsible Observer: PROTEIN PROTEIN 300.3750 (C) Ketones Ur Ql Strip See Note (NEGATIVE) None Note: [id number] EResponsible Observer: KETONE KETONE 300.3900 (C) Bilirub Ur Ql Strip.auto See Note (NEGATIVE) None Note: [id number] EResponsible Observer: BILIRUBIN BILIRUBIN 300.4550 (C) Glucose Ur Strip.auto-mCnc NEGATIVE (NEGATIVE) None Note: Responsible Observer: GLUCOSE GLUC OSE 300.3850 (C) Appearance Ur See Note (CLEAR) None Note: CLEARCLEARLCLEARResponsible Observ er: APPEARANCE APPEARANCE 300.3400 (A) Color Ur See Note None Note: YELLOWYELLOWLYELLOWResponsible Obs erver: COLOR COLOR 300.3330 (A) Leukocyte esterase Ur Ql Strip See Note (NEGATIVE) None Note: [id number] EResponsible Observer: LEUKOCYTES LEUKOCYTES 300.3576 (C) Nitrite Ur Ql Strip See Note (NEGATIVE) None Note: [id number] EResponsible Observer: NITRITE NITRITE 300.3652 (B) pH [...] are final unless otherwise noted. Reported Physicians [facility] Ordered by Maya Barron MD on 07/22/2020 Collected: 07/22/2020 Reported: 07/22/2020 01:11 Reported Physicians See Note None Note: Reported Physicians:Ordering: Hong LandaverdeAttending: Alon Douglas To: Maya Barron Reviewed by Maya Barron MD on 07/24; All test results are final unless otherwise noted. Urine culture [facility] Ordered by Maya Barron MD on 07/19/2020 Collected: 07/19/2020 Reported: 07/21/2020 07:48 Bacteria Ur Cult See Note None Note: NGNo growth.L1NG Reviewed by Maya Barron MD on 07/21; All test results are final unless otherwise noted. Reported Physicians [facility] Ordered by Maya Barron MD on 07/19/2020 Collected: 07/19/2020 Reported: 07/21/2020 07:49 Reported Physicians See Note None Note: Reported Physicians:Ordering: Maya AlvarengaAttending: Maya Barron Reviewed by Maya Barron MD on 07/21; All test results are final unless otherwise noted. BHCG, QUANTITATIVE [facility] Ordered by Maya Barron MD [...] are final unless otherwise noted. Reported Physicians [facility] Ordered by Maya Barron MD on 07/17/2020 Collected: 07/17/2020 Reported: 07/17/2020 12:40 Reported Physicians See Note None Note: Reported Physicians:Ordering: Maya AlvarengaAttending: Maya Barron Reviewed by Maya Barron MD on 07/17; All test results are final unless otherwise noted. [employer] COVID-19 [employer]OL [facility] Ordered by Maya Barron MD [...] molecular test, if the virus mutates in [facility] region, Covid-19 may not be detected or may bedetected less predictably.ID NOW COVID-19 is intended for testing a swab directlywithout elution in viral transport media as dilution willresult in decreased detection of low positive samples thatare near the limit of detection of the test.SWAB SAMPLES ELUTED IN VTM ARE NOT APPROPRIATE FOR USE INTHIS TEST.NOSNo Organisms [id number] Organisms Detected Reviewed by Maya Barron MD on 05/31; All test results are final unless otherwise noted. Reported Physicians [facility] Ordered by Maya Barron MD on 05/31/2020 Collected: 05/31/2020 Reported: 05/31/2020 07:08 Reported Physicians See Note None Note: Reported Physicians:Ordering: Johnny HernándezAttending: Suzanne Cazares To: Maya Barron Reviewed by Maya Barron MD on 05/31; All test results are final unless otherwise noted. BHCG, QUANTITATIVE [facility] Ordered by Maya Barron MD on 05/26/2020 Collected: 05/26/2020 Reported: 05/26/2020 14:49 B-HCG [facility] [address] MilliInternationalUnitsPerMilliLiter_[Arbitrary_Con (0-10) H (High) Note: @Instrument will [...] are final unless otherwise noted. Reported Physicians [facility] Ordered by Maya Barron MD on 05/26/2020 Collected: 05/26/2020 Reported: 05/26/2020 14:50 Reported Physicians See Note None Note: Reported Physicians:Ordering: Maya AlvarengaAttending: Maya Barron Reviewed by Maya Barron MD on 05/26; All test results are final unless otherwise noted. URINALYSIS [facility] Ordered by aMya Barron MD on 05/23/2020 Collected: 05/23/2020 Reported: 05/23/2020 17:19 Urobilinogen Ur Ql See Note (0.2-1 EU/dl) None Note: 0.2 EU/dl0.2 EU/[id number] E U/dlResponsible Observer: UROBILINOGEN UROBILINOGEN 300.4500 (C) RBC # Ur Strip NEGATIVE (NEGATIVE) None Note: Responsible Observer: BLOOD BLOOD 300.4650 (C) Prot Ur Ql Strip See Note (NEGATIVE) None Note: [id number] EResponsible Observer: PROTEIN PROTEIN 300.3750 (C) Ketones Ur Ql Strip See Note (NEGATIVE) None Note: [id number] EResponsible Observer: KETONE KETONE 300.3900 (C) Bilirub Ur Ql Strip.auto See Note (NEGATIVE) None Note: [id number] EResponsible Observer: BILIRUBIN BILIRUBIN 300.4550 (C) Glucose Ur Strip.auto-mCnc NEGATIVE (NEGATIVE) None Note: Responsible Observer: GLUCOSE GLUC OSE 300.3850 (C) Appearance Ur See Note (CLEAR) None Note: CLEARCLEARLCLEARResponsible Observ er: APPEARANCE APPEARANCE 300.3400 (A) Color Ur See Note None Note: YELLOWYELLOWLYELLOWResponsible Obs erver: COLOR COLOR 300.3300 (A) Leukocyte esterase Ur Ql Strip See Note (NEGATIVE) None Note: [id number] EResponsible Observer: LEUKOCYTES LEUKOCYTES 300.3575 (C) Nitrite Ur Ql Strip See Note (NEGATIVE) None Note: [id number] EResponsible Observer: NITRITE NITRITE 300.3650 (B) pH [...] are final unless otherwise noted. Urine culture [facility] Ordered by Maya Barron MD on 05/23/2020 Collected: 05/23/2020 Reported: 05/24/2020 09:24 Bacteria Ur Cult See Note None Note: NGNo growth.L1NG Reviewed by Maya Barron MD on 05/29; All test results are final unless otherwise noted. MEDMATCH [facility] Ordered by Maya Barron MD on 05/23/2020 Collected: 05/23/2020 Reported: 05/26/2020 17:09 MEDMATCH 1.000 (> or = 1.003) None Note: Responsible Observer: MEDMATCH MED MATCH [phone] ([facility]) Reviewed by Maya Barron MD on 05/29; All test results are final unless otherwise noted. Reported Physicians [facility] Ordered by Maya Barron MD on 05/23/2020 Collected: 05/23/2020 Reported: 05/26/2020 17:09 Reported Physicians See Note None Note: Reported Physicians:Ordering: Cara Alvarengaending: Maya Barron Reviewed by Maya Barron MD on 05/29; All test results are final unless otherwise noted. Varicella-Zoster IgG Antibody [facility] Ordered by Maya Barron MD [...] Antibody Immunity Screen, ACIF.THIS TEST WAS PERFORMED AT:[facility] [address]QYDAKV ME RATI,MDResponsible Observer: VARICELLA IGG Varicella-Zoster IgG Antibody [id number] 913.3745 ([facility] [employer]) NOTES See Note None Note: Patient Street Address: [facility] [address]Patient City: [facility] State: [facility] Zip Code: [address] Reviewed by Maya Barron MD on 05/26; All test results are final unless otherwise noted. Reported Physicians [facility] Ordered by Maya Barron MD on 05/23/2020 Collected: 05/23/2020 Reported: 05/25/2020 17:11 Reported Physicians See Note None Note: Reported Physicians:Ordering: Maya AlvarengaAttending: Maya Barron Reviewed by Maya Barron MD on 05/26; All test results are final unless otherwise noted. CBC [facility] Ordered by Maya Barron MD [...] Auto See Note (0-2) N (Normal) Note: [id number] Ob bartender server: IG% IG% 100.1375 (B) Hct VFr [...] results are final unless otherwise noted. TSH [facility] Ordered by Maya Barron MD on 05/23/2020 Collected: 05/23/2020 Reported: 05/23/2020 18:38 TSH SerPl DL<=0.005 mIU/L-aCnc 1.87 MicroInternationalUnitsPerMilliLiter_[Arbitrary_Con (0.35-5. 50) N (Normal) Note: Responsible Observer: TSH TSH 600 .7055 (D) Reviewed by Maya Barron MD on 05/29; All test results are final unless otherwise noted. Lead (Venous) Wh.Bld [facility] Ordered by Maya Barron MD on 05/23/2020 Collected: 05/23/2020 Reported: 05/25/2020 17:11 Lead Bld-sCnc <1 (<5) None Note: See Note 1Note 1This test was [employer] and its analytical performancecharacteristics have been determined by [employer]. It has not been cleared or approved by theA. This assay has been validated pursuant to the CLIAregulations and is used for clinical purposes.THIS TEST WAS PERFORMED AT:[facility] [address]HHTNWV MERATI,MDResponsible Observer: Lead, WB Lead, Whole Blood [id number] 911.2190 ([facility]) NOTES See Note None Note: Patient Street Address: [facility] [address]Patient City: [facility] State: [facility] Zip Code: [address] Reviewed by Maya Barron MD on 05/29; All test results are final unless otherwise noted. ncPN REF [facility] Ordered by Maya Barron MD on 05/23/2020 Collected: 05/23/2020 Reported: 05/27/2020 20:54 T pallidum Ab Ser Ql Aggl See Note (Nonreactive) None Note: [id number] onreactiveResponsible Observer: TP-PA Treponema pallidum Ab (TP-PA) [id number] 908.0286 ([facility]) HIV1 RNA SerPl Ql ТАТЬЯНА+probe See Note None Note: TNPNo Reportable ResultLTNPNo Repo rtable ResultLLEP.LIVENTNPResponsible Observer: HIV 1 RNA, QL T HIV 1 RNA, QL TMA [id number] 908.0254 ([facility]) HBV surface Ag SerPl Ql IA See Note (NON-REACTIVE) None Note: [id number] 0NON-REACTIVEResponsible Observer: HBSAG Hepatitis B Surface Antigen [id number] 910.2004 ([facility]) RUBV IgG SerPl IA-aCnc 1.80 None Note: Index Interpretatio n ----- <0.90 Not consistent with Immunity 0.90-0.99 Equivocal > or = 1.00 Consistent with ImmunityThe presence of rubella IgG antibody suggestsimmunization or past or current infection withrubella virus.THIS TEST WAS PERFORMED AT:[facility] [address]PAOQYG MERATI,MDResponsible Observer: Rubella IgG Ab Rubella IgG Ab [id number] 911.2840 ([facility]) HIV1 Ab SerPlBld Ql IA.rapid See Note None Note: TNPNo Reportable ResultLTNPNo Repo rtable ResultLLEP.LIVENTNPResponsible Observer: HIV 1 AB HIV 1 AB [id number] 908.0250 ([facility]) HBsAg Confirmation See Note None Note: TNPNo Reportable ResultLTNPNo Repo rtable ResultLLEP.LIVENTNPResponsible Observer: HBsAg Confirm HBsAg Confirmation [id number] 910.2006 ([facility]) HIV (1&2) Screen, 4th Gen [...] for this purpose.For additional information please refer tohttp://[employer].Prowl/faq/QXA853(This link is being provided for informational/educational purposes only.)The performance of this assay has not been clinicallyvalidated in patients less than 2 years old.Responsible Observer: HIV ABS HIV (1&2) Screen, 4th Gen [id number] 908.0228 ([facility]) Reviewed by Maya Barron MD on 05/29; All test results are final unless otherwise noted. Reported Physicians [facility] Ordered by Maya Barron MD on 05/23/2020 Collected: 05/23/2020 Reported: 05/27/2020 20:54 Reported Physicians See Note None Note: Reported Physicians:Ordering: Maya AlvarengaAttending: Maya Barron Reviewed by Maya Barron MD on 05/29; All test results are final unless otherwise noted. HCV RFX ТАТЬЯНА [facility] Ordered by Maya Barron MD on 05/23/2020 Collected: 05/23/2020 Reported: 05/25/2020 17:11 HCV Ab Ser Ql See Note (NON-REACTIVE) None Note: [id number] 7NON-REACTIVEResponsible Observer: HEP C ANTIBODY Hepatitis C Antibody [id number] 914.8305 ([facility]) HCV RNA Qualitative (ТАТЬЯНА) 0.59 (<1.00) None Note: HCV antibody was non-reactive. The re is no laboratoryevidence of HCV infection.In most cases, no further action is required. However,if recent HCV exposure is suspected, a test for HCV RNA(test code 02177) is suggested.For additional information please refer tohttp://[employer]rowl/faq/KAT73f6(This link is being provided for informational/educational purposes only.)THIS TEST WAS PERFORMED AT:[facility] [address]OSEAS MEANSMDResponsible Observer: SIG TO C/O SIGNAL TO CUTOFF [id number] 914.8335 ([facility] [employer]) NOTES See Note None Note: Patient Street Address: [facility]Patient City: [facility] [place]: [place] Zip Code: [address] Reviewed by Maya Barron MD on 05/26; All test results are final unless otherwise noted. Reported Physicians [facility] Ordered by Maya Barron MD on 05/23/2020 Collected: 05/23/2020 Reported: 05/25/2020 17:11 Reported Physicians See Note None Note: Reported Physicians:Ordering: Maya AlvarengaAttending: Maya Barron Reviewed by Maya Barron MD on 05/26; All test results are final unless otherwise noted. Type and Screen [facility] Ordered by Maya Barron MD [...] are final unless otherwise noted. Reported Physicians [facility] Ordered by Maya Barron MD on 05/23/2020 Collected: 05/23/2020 Reported: 05/23/2020 19:32 Reported Physicians See Note None Note: Reported Physicians:Ordering: Maya AlvarengaAttending: Maya Barron Reviewed by Maya Barron MD on 05/24; All test results are final unless otherwise noted. PROGESTERONE [facility] Ordered by Maya Barron MD [...] are final unless otherwise noted. Reported Physicians [facility] Ordered by Maya Barron MD on 04/27/2020 Collected: 04/27/2020 Reported: 04/27/2020 15:58 Reported Physicians See Note None Note: Reported Physicians:Ordering: Johnny Hernández LeeAttending: Jos Castellanos To: Rubén Barron To: Cristino Castellanos Reviewed by Maya Barron MD on 04/30; All test results are final unless otherwise noted. BHCG, QUANTITATIVE [facility] Ordered by Maya Barron MD on 04/27/2020 Collected: 04/27/2020 Reported: 04/27/2020 14:40 B-HCG [facility] [address] MilliInternationalUnitsPerMilliLiter_[Arbitrary_Con (0-10) H (High) Note: @Instrument [...] are final unless otherwise noted. Reported Physicians [facility] Ordered by Maya Barron MD on 04/27/2020 Collected: 04/27/2020 Reported: 04/27/2020 14:40 Reported Physicians See Note None Note: Reported Physicians:Ordering: Cristino SnowAttending: Cristino CastellanosCopyifan To: Suzanne Cazares To: Maya Barron Reviewed by Maya Barron MD on 04/30; All test results are final unless otherwise noted. 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 [facility] Ordered by Maya Barron [...] are final unless otherwise noted. Reported Physicians [facility] Ordered by Maya Barron MD on 04/25/2020 Collected: 04/25/2020 Reported: 04/25/2020 22:11 Reported Physicians See Note None Note: Reported Physicians:Ordering: Aj Ferreiraending: Jos Rivas To: Maya Barron Reviewed by Maya Barron MD on 04/26; All test results are final unless otherwise noted. BHCG, QUANTITATIVE [facility] Ordered by Maya Barron MD on 04/25/2020 Collected: 04/25/2020 Reported: 04/25/2020 22:11 B-[facility]CG [facility] 1758 MilliInternationalUnitsPerMilliLiter_[Arbitrary_Con (0-10) H (High) Note: @Instrument [...] are final unless otherwise noted. Reported Physicians [facility] Ordered by Maya Barron MD on 04/25/2020 Collected: 04/25/2020 Reported: 04/25/2020 22:11 Reported Physicians See Note None Note: Reported Physicians:Ordering: Cristino FerreiraAttending: Jos Rivas To: Maya Barron Reviewed by Maya Barron MD on 04/26; All test results are final unless otherwise noted. Urine culture [facility] Ordered by Maya Barron MD on 04/25/2020 Collected: 04/25/2020 Reported: 04/27/2020 04:50 Bacteria Ur Cult See Note None Note: NGNo growth.L1NG NOTES See Note None Note: @ NICOLE DATE was changed from 04/26 to 04/25/20@ by POMCY. Reviewed by Maya Barron MD on 04/30; All test results are final unless otherwise noted. Reported Physicians [facility] Ordered by Maya Barron MD on 04/25/2020 Collected: 04/25/2020 Reported: 04/27/2020 04:51 Reported Physicians See Note None Note: Reported Physicians:Ordering: Cristino FerreiraAttending: Jos Rivas To: Maya Barron Reviewed by Maya Barron MD on 04/30; All test results are final unless otherwise noted. ADD ON MICROSCOPIC [facility] Ordered by Maya Barron MD on 04/25/2020 Collected: 04/25/2020 Reported: 04/25/2020 21:54 ADD ON MICROSCOPIC See Note (0-5) None Note: NOTES OTHER/NOT INTERPRETED Bacteria UrnS Ql Micro SMALL AMOUNT Bacteria UrnS Ql Micro SMALL AMOUNT Bacteria UrnS Ql Micro L Bacteria UrnS Ql Micro Bacteria UrnS Ql Micro Bacteria UrnS Ql Micro Bacteria UrnS Ql Micro [id number] Bacteria UrnS Ql Micro Bacteria UrnS Ql [...] are final unless otherwise noted. Reported Physicians [facility] Ordered by Maya Barron MD on 04/25/2020 Collected: 04/25/2020 Reported: 04/25/2020 21:54 Reported Physicians See Note None Note: Reported Physicians:Ordering: Aj Ferreiraending: Jos Rivas To: Maya Barron Reviewed by Maya Barron MD on 04/26; All test results are final unless otherwise noted. URINALYSIS [facility] Ordered by Maya Barron MD on 04/25/2020 Collected: 04/25/2020 Reported: 04/25/2020 21:54 Urobilinogen Ur Ql See Note (0.2-1 EU/dl) None Note: 0.2 EU/dl0.2 EU/[id number] E U/dlResponsible Observer: UROBILINOGEN UROBILINOGEN 300.4500 (C) RBC # Ur Strip NEGATIVE (NEGATIVE) None Note: Responsible Observer: BLOOD BLOOD 300.4650 (C) Prot Ur Ql Strip See Note (NEGATIVE) None Note: [id number] EResponsible Observer: PROTEIN PROTEIN 300.3750 (C) Ketones Ur Ql Strip See Note (NEGATIVE) None Note: [id number] EResponsible Observer: KETONE KETONE 300.3900 (C) Bilirub Ur Ql Strip.auto See Note (NEGATIVE) None Note: [id number] EResponsible Observer: BILIRUBIN BILIRUBIN 300.4550 (C) Glucose Ur Strip.auto-mCnc NEGATIVE (NEGATIVE) None Note: Responsible Observer: GLUCOSE GLUC OSE 300.3850 (C) Appearance Ur See Note (CLEAR) None Note: CLEARCLEARLCLEARResponsible Observ er: APPEARANCE APPEARANCE 300.3400 (A) Color Ur See Note None Note: YELLOWYELLOWLYELLOWResponsible Obs erver: COLOR COLOR 300.3300 (A) Leukocyte esterase Ur Ql Strip See Note (NEGATIVE) None Note: [id number]@DO MICR O!!!!Responsible Observer: LEUKOCYTES LEUKOCYTES 300.3575 (C) Nitrite Ur Ql Strip See Note (NEGATIVE) None Note: [id number] EResponsible Observer: NITRITE NITRITE 300.3650 (B) pH [...] are final unless otherwise noted. Reported Physicians [facility] Ordered by Maya Barron MD on 04/25/2020 Collected: 04/25/2020 Reported: 04/25/2020 21:54 Reported Physicians See Note None Note: Reported Physicians:Ordering: Aj Ferreiraending: Cristino RivasCopyifan To: Maya Barron Reviewed by Maya Barron MD on 04/26; All test results are final unless otherwise noted. BHCG, QUANTITATIVE [facility] Ordered by Maya Barron MD [...] are final unless otherwise noted. Reported Physicians [facility] Ordered by Maya Barron MD on 04/18/2020 Collected: 04/18/2020 Reported: 04/18/2020 15:11 Reported Physicians See Note None Note: Reported Physicians:Ordering: Maya AlvarengaAttending: Maya Barron Reviewed by Maya Barron MD on 04/19; All test results are final unless otherwise noted. ADD ON MICROSCOPIC [facility] Ordered by Maya Barron MD on 04/16/2020 Collected: 04/16/2020 Reported: 04/16/2020 23:51 ADD ON MICROSCOPIC See Note (0-5) None Note: NOTES OTHER/NOT INTERPRETED Bacteria UrnS Ql Micro SMALL AMOUNT Bacteria UrnS Ql Micro SMALL AMOUNT Bacteria UrnS Ql Micro L Bacteria UrnS Ql Micro Bacteria UrnS Ql Micro Bacteria UrnS Ql Micro Bacteria UrnS Ql Micro [id number] Bacteria UrnS Ql Micro Bacteria UrnS Ql [...] are final unless otherwise noted. Reported Physicians [facility] Ordered by Maya Barron MD on 04/16/2020 Collected: 04/16/2020 Reported: 04/16/2020 23:52 Reported Physicians See Note None Note: Reported Physicians:Ordering: Damon VinodAttending: Damon VinodCopy To: Maya Barron Reviewed by Maya Barron MD on 04/17; All test results are final unless otherwise noted. UA W/ CULTURE IF ABNORMAL [facility] Ordered by Maya Barron MD on 04/16/2020 Collected: 04/16/2020 Reported: 04/16/2020 23:51 Urobilinogen Ur Ql See Note (0.2-1 EU/dl) None Note: 0.2 EU/dl0.2 EU/[id number] E U/dlResponsible Observer: UROBILINOGEN UROBILINOGEN 300.4500 (C) RBC # Ur Strip NEGATIVE (NEGATIVE) None Note: Responsible Observer: BLOOD BLOOD 300.4652 (C) Prot Ur Ql Strip See Note (NEGATIVE) None Note: [id number] EResponsible Observer: PROTEIN PROTEIN 300.3750 (C) Ketones Ur Ql Strip See Note (NEGATIVE) None Note: [id number] ble Observer: KETONE KETONE 300.3900 (C) Bilirub Ur Ql Strip.auto See Note (NEGATIVE) None Note: [id number] EResponsible Observer: BILIRUBIN BILIRUBIN 300.4550 (C) Glucose Ur Strip.auto-mCnc NEGATIVE (NEGATIVE) None Note: Responsible Observer: GLUCOSE GLUC OSE 300.3850 (C) Appearance Ur See Note (CLEAR) None Note: CLEARCLEARLCLEARResponsible Observ er: APPEARANCE APPEARANCE 300.3400 (A) Color Ur See Note None Note: YELLOWYELLOWLYELLOWResponsible Obs erver: COLOR COLOR 300.3330 (A) Leukocyte esterase Ur Ql Strip See Note (NEGATIVE) None Note: [id number] E@DO MICRO!!!!A Culture has been added to this specimen per established criteriaResponsible Observer: LEUKOCYTES LEUKOCYTES 300.3576 (C) Nitrite Ur Ql Strip See Note (NEGATIVE) None Note: [id number] EResponsible Observer: NITRITE NITRITE 300.3652 (B) pH [...] are final unless otherwise noted. Urine culture [facility] Ordered by Maya Barron MD on 04/16/2020 Collected: 04/16/2020 Reported: 04/18/2020 06:47 Urine culture result See Note None Note: Less than 10,000 CFU/MLNormal Comm ensal FloraProbable contaminants no senst done NOTES See Note None Note: @04/16/20 2351: Urine culture adde d. RFLXG = CULT.ADD. Reviewed by Maya Barron MD on 04/18; All test results are final unless otherwise noted. Reported Physicians [facility] Ordered by Maya Barron MD on 04/16/2020 Collected: 04/16/2020 Reported: 04/18/2020 06:47 Reported Physicians See Note None Note: Reported Physicians:Ordering: Damon , VinodAttending: Damon, VinodCopy To: Maya Barron Reviewed by Maya Barron MD on 04/18; All test results are final unless otherwise noted. 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 BHCG, QUANTITATIVE [facility] Ordered by Maya Barron MD [...] are final unless otherwise noted. Reported Physicians [facility] Ordered by Maya Barron MD on 04/16/2020 Collected: 04/16/2020 Reported: 04/16/2020 22:47 Reported Physicians See Note None Note: Reported Physicians:Ordering: Damon , VinodAttending: Damon, VinodCopy To: Maya Barron Reviewed by Maya Barron MD on 04/17; All test results are final unless otherwise noted. CMP [facility] Ordered by Maya Barron MD [...] Creatinine C reatinine 400.1600 (G) Reviewed by Maay Barron MD on 04/17; All test results are final unless otherwise noted. Reported Physicians [facility] Ordered by Maya Barron MD on 04/16/2020 Collected: 04/16/2020 Reported: 04/16/2020 22:44 Reported Physicians See Note None Note: Reported Physicians:Ordering: Damon , VinodAttending: Damon, VinodCopy To: Maya Barron Reviewed by Maya Barron MD on 04/17; All test results are final unless otherwise noted. LIPASE [facility] Ordered by Maya Barron MD on 04/16/2020 Collected: 04/16/2020 Reported: 04/16/2020 22:44 Lipase [facility] 107 enzyme_unit_per_liter (73-393) N (Normal) Note: Responsible Observer: Lipase Lipas e 400.2310 (G) Reviewed by Maya Barron MD on 04/17; All test results are final unless otherwise noted. Reported Physicians [facility] Ordered by Maya Barron MD on 04/16/2020 Collected: 04/16/2020 Reported: 04/16/2020 22:44 Reported Physicians See Note None Note: Reported Physicians:Ordering: Damon , VinodAttending: Damon, VinodCopy To: Maya Barron Reviewed by Maya Barron MD on 04/17; All test results are final unless otherwise noted. Type and Screen [facility] Ordered by Maya Barron MD [...] are final unless otherwise noted. Reported Physicians [facility] Ordered by Maya Barron MD on 04/16/2020 Collected: 04/16/2020 Reported: 04/16/2020 23:09 Reported Physicians See Note None Note: Reported Physicians:Ordering: Roeml Josettending: Jose E JoseodCopy To: Maya Barron Reviewed by Maya Barron MD on 04/17; All test results are final unless otherwise noted. [facility] Ordered by Maya Barron MD on 04/10/[address] [place] [address], [facility] Collected: 04/10/2020 Reported: 04/11/2020 11:35 [...] test results are final unless otherwise noted. [facility] Doctor's In-house Laboratory Ordered by Maya Barron MD on 04/10/[address] [place] [address], [facility] Collected: 04/10/2020 Reported: 04/11/2020 11:35 [...] by Maya Barron MD on 04/10/2020 [address] [place], [address] Collected: 04/10/2020 Reported: 04/11/2020 11:35 tel : ext. 1500 TSH 1.336 uIu/mL (0.5-5.8) None Note: Responsible Observer: AW Reviewed by Maya Barron MD on 04/12; All test results are final unless otherwise noted. -[facility] Ordered by Maya Barron MD on 02/25/2020 Collected: 02/25/2020 Reported: 02/28/2020 15:53 C trach rRNA XXX Ql ТАТЬЯНА+probe See Note (NOT DETECTED) None Note: NOT DETECTEDNOT DETECTEDLNOT DETEC TEDNOT [id number] DETECTEDResponsible Observer: C.Trach RNA Chlamydia trachomatis DNA-ТАТЬЯНА [id number] 913.9900 ([facility] [place] [facility]) N gonorrhoea rRNA XXX Ql ТАТЬЯНА+probe See Note (NOT DETECTED) None Note: NOT DETECTEDNOT DETECTEDLNOT DETEC TEDNOT [id number] DETECTEDResponsible Observer: GC RNA Neisseria gonorrhoeae DNA -ТАТЬЯНА [id number] 913.9905 ([facility]) Chlamydia/GC DNA Note SEE NOTE None Note: The analytical performance charact eristics of thisassay, when used to test SurePath(TM) specimens have beendetermined by [employer]. The modifications havenot been cleared or approved by the FDA. This assay hasbeen validated pursuant to the CLIA regulations and isused for clinical purposes.For additional information, please refer tohttps://education.Reactivity.RentJiffy/faq/OLB636(This link is being provided for information/educational purposes only.)THIS TEST WAS PERFORMED AT:[facility] [id number] ONEILLesponsible Observer: ANDRE/Kamini Note Chlamydia/GC DNA Note [id number] 913.9907 (A) NOTES See Note None Note: Source Of Specimen: URINE Reviewed by Maya Barron MD on 02/28; All test results are final unless otherwise noted. Reported Physicians [facility] Ordered by Maya Barorn MD on 02/25/2020 Collected: 02/25/2020 Reported: 02/28/2020 15:54 Reported Physicians See Note None Note: Reported Physicians:Ordering: Maya AlvarengaAttending: Maya Barron Reviewed by Maya Barron MD on 02/28; All test results are final unless otherwise noted. Urine culture-[facility] Ordered by Maya Barron MD on 02/25/2020 Collected: 02/25/2020 Reported: 02/26/2020 13:38 Urine culture result No growth None Reviewed by Maay Barron MD on 02/27; All test results are final unless otherwise noted. Reported Physicians [facility] Ordered by Maya Barron MD on 02/25/2020 Collected: 02/25/2020 Reported: 02/26/2020 13:39 Reported Physicians See Note None Note: Reported Physicians:Ordering: Cara Alvarengaending: Maya Barron Reviewed by Maya Barron MD on 02/27; All test results are final unless otherwise noted. Test Office Lab Ordered by Maya Barron MD on 02/25/2020 [address] [place], [address] Specimen Source: Urine Collected: 02/25/2020 Reporte d: 02/25/2020 11:15 tel: Urine HCG neg (negative) N (Normal) Reviewed by Maya Barron MD on 02/24; All test results are final unless otherwise noted. Urinalysis w/out microscopy Office Lab Ordered by Maya Barron MD on 02/25/[address] [place] [address], [phone] Specimen Source: Urine Collected: 02/25/2020 Reporte d: [...] otherwise noted. UA W/ CULTURE IF ABNORMAL [facility] Ordered by Maya Barron MD on 01/29/2020 Collected: 01/29/2020 Reported: 01/29/2020 00:22 Urobilinogen Ur Ql See Note (0.2-1 EU/dl) None Note: 1 EU/dl1 EU/dlL1 EU/dl1 EU/drQ0871 [id number] EU/dlResponsible Observer: UROBILINOGEN UROBILINOGEN 300.4500 (C) RBC # Ur Strip NEGATIVE (NEGATIVE) None Note: Responsible Observer: BLOOD BLOOD 300.4652 (C) Prot Ur Ql Strip See Note (NEGATIVE) None Note: NEGATIVENEGATIVELNEGATIVENEGATIVEL [id number] Observer: PROTEIN PROTEIN 300.3750 (C) Ketones Ur Ql Strip See Note (NEGATIVE) None Note: 15 mg/dL15 mg/dLL15 mg/dL15 mg/dLL 561467430598 mg/dLResponsible Observer: KETONE KETONE 300.3900 (C) Bilirub Ur Ql Strip.auto See Note (NEGATIVE) None Note: NEGATIVENEGATIVELNEGATIVENEGATIVEL [id number] Observer: BILIRUBIN BILIRUBIN 300.4550 (C) Glucose Ur Strip.auto-mCnc NEGATIVE (NEGATIVE) None Note: Responsible Observer: GLUCOSE GLUC OSE 300.3850 (C) Appearance Ur See Note (CLEAR) None Note: CLEARCLEARLCLEARCLEARLCLEARRespons ible Observer: APPEARANCE APPEARANCE 300.3400 (A) Color Ur See Note None Note: YELLOWYELLOWLYELLOWYELLOWLYELLOWRe sponsible Observer: COLOR COLOR 300.3330 (A) Leukocyte esterase Ur Ql Strip See Note (NEGATIVE) None Note: NEGATIVENEGATIVELNEGATIVENEGATIVEL [id number] Observer: LEUKOCYTES LEUKOCYTES 300.3576 (C) Nitrite Ur Ql Strip See Note (NEGATIVE) None Note: NEGATIVENEGATIVELNEGATIVENEGATIVEL 1015441728CTJANUCSWiaqjavequk Observer: NITRITE NITRITE 300.3652 (B) pH Ur [...] are final unless otherwise noted. Reported Physicians [facility] Ordered by Maya Barron MD on 01/29/2020 Collected: 01/29/2020 Reported: 01/29/2020 00:22 Reported Physicians See Note None Note: Reported Physicians:Ordering: Yoli NapolesAttending: Charles Silva To: Maya Barron Reviewed by Maya Barron MD on 01/30; All test results are final unless otherwise noted. BHCG,SERUM QUALITATIVE [facility] Ordered by Maya Barron MD on 01/28/2020 Collected: 01/28/2020 Reported: 01/28/2020 22:58 HCG SerPl-sCnc NEGATIVE (NEGATIVE) None Note: @Reenter manual test result: NEGAT LAYA@by Sybil Whatley at 01/28/20 7148.Responsible Observer: BHCG SERUM BHCG SERUM 800.0900 (A) NOTES See Note None Note: @ DID THE CONTROL BAND APPEAR? YES @ DID THE BACKGROUND CLEAR? YES Reviewed by Maya Barron MD on 01/30; All test results are final unless otherwise noted. Reported Physicians [facility] Ordered by Myaa Barron MD on 01/28/2020 Collected: 01/28/2020 Reported: 01/28/2020 22:58 Reported Physicians See Note None Note: Reported Physicians:Ordering: Yoli NapolesAttending: Charles Silva To: Maya Barron Reviewed by Maya Barron MD on 01/30; All test results are final unless otherwise noted. CBC W AUTO DIFF [facility] Ordered by Maya Barron MD [...] Auto See Note (0-2) N (Normal) Note: 0.30.3L0.30.8W38351413832.3Respons ible Observer: IG% IG% 100.1375 (B) Hct [...] results are final unless otherwise noted. [facility] Lab Ordered by Maya Barron [...] are final unless otherwise noted. Reported Physicians [facility] Ordered by Maya Barron MD on 01/28/2020 Collected: 01/28/2020 Reported: 01/28/2020 23:00 Reported Physicians See Note None Note: Reported Physicians:Ordering: Yoli NapolesAttending: Charles Silva To: Maya Barron Reviewed by Maya Barron MD on 01/30; All test results are final unless otherwise noted. UA W/ CULTURE IF ABNORMAL [facility] Ordered by Maya Barron MD on 12/12/2019 Collected: 12/12/2019 Reported: 12/12/2019 11:22 Urobilinogen Ur Ql See Note (0.2-1 EU/dl) None Note: 1 EU/dl1 EU/dlL1 EU/dl1 EU/cbM1598 1707605 EU/dlResponsible Observer: UROBILINOGEN UROBILINOGEN 300.4500 (C) RBC # Ur Strip NEGATIVE (NEGATIVE) None Note: Responsible Observer: BLOOD BLOOD 300.4652 (C) Prot Ur Ql Strip See Note (NEGATIVE) None Note: NEGATIVENEGATIVELNEGATIVENEGATIVEL [id number] Observer: PROTEIN PROTEIN 300.3750 (C) Ketones Ur Ql Strip See Note (NEGATIVE) None Note: 15 mg/dL15 mg/dLL15 mg/dL15 mg/dLL 654196687940 mg/dLResponsible Observer: KETONE KETONE 300.3900 (C) Bilirub Ur Ql Strip.auto See Note (NEGATIVE) None Note: NEGATIVENEGATIVELNEGATIVENEGATIVEL 0655822754DUMQPDKVTtfzmwchvda Observer: BILIRUBIN BILIRUBIN 300.4550 (C) Glucose Ur Strip.auto-mCnc NEGATIVE (NEGATIVE) None Note: Responsible Observer: GLUCOSE GLUC OSE 300.3850 (C) Appearance Ur See Note (CLEAR) A (Abnormal) Note: CLOUDYCLOUDYLCLOUDYCLOUDYLCLOUDYRe sponsible Observer: APPEARANCE APPEARANCE 300.3400 (A) Color Ur See Note None Note: YELLOWYELLOWLYELLOWYELLOWLYELLOWRe sponsible Observer: COLOR COLOR 300.3330 (A) Leukocyte esterase Ur Ql Strip See Note (NEGATIVE) None Note: NEGATIVENEGATIVELNEGATIVENEGATIVEL 8731352545VCCEVMWAKbdyxxgfuue Observer: LEUKOCYTES LEUKOCYTES 300.3576 (C) Nitrite Ur Ql Strip See Note (NEGATIVE) None Note: NEGATIVENEGATIVELNEGATIVENEGATIVEL 6918967883HXYUKOJMWzcqzmmnetj Observer: NITRITE NITRITE 300.3652 (B) pH Ur [...] are final unless otherwise noted. Reported Physicians [facility] Ordered by Maya Barron MD on 12/12/2019 Collected: 12/12/2019 Reported: 12/12/2019 11:23 Reported Physicians See Note None Note: Reported Physicians:Ordering: Maya AlvarengaAttending: Maya Barron Reviewed by Maya Barron MD on 12/12; All test results are final unless otherwise noted. CBC W AUTO DIFF [facility] Ordered by Maya Barron MD [...] Auto See Note (0-2) N (Normal) Note: 0.30.3L0.30.5V65739693843.3Respons ible Observer: IG% IG% 100.1375 (B) Hct [...] results are final unless otherwise noted. [facility] Ordered by Maya Barron [...] are final unless otherwise noted. Reported Physicians [facility] Ordered by Maya Barron MD on 12/12/2019 Collected: 12/12/2019 Reported: 12/12/2019 11:58 Reported Physicians See Note None Note: Reported Physicians:Ordering: Maya AlvarengaAttending: Maya Barron Reviewed by Maya Barron MD on 12/12; All test results are final unless otherwise noted. Gastrointestinal Panel PCR [facility] Ordered by Maya Barron MD [...] INFECTIOUS DISEASE [employer] [place]).CLOC. difficile toxin [id number]. difficile toxin detected Reviewed by Maya Barron MD on 12/12; All test results are final unless otherwise noted. Reported Physicians [facility] Ordered by Maya Barron MD on 12/12/2019 Collected: 12/12/2019 Reported: 12/12/2019 14:17 Reported Physicians See Note None Note: Reported Physicians:Ordering: Maya AlvarengaAttending: Maya Barron Reviewed by Maya Barron MD on 12/12; All test results are final unless otherwise noted. CBC W AUTO DIFF [facility] Ordered by Maya Barron MD [...] Auto See Note (0-2) N (Normal) Note: 0.00.0L0.00.6C78077990808.0Respons ible Observer: IG% IG% 100.1375 (B) Hct [...] results are final unless otherwise noted. [facility] Ordered by Maya Braron MD on 12/07/2019 Collected: 12/07/2019 Reported: 12/07/2019 [...] (G) Reviewed by aMya Barron MD on 12/09; All test results are final unless otherwise noted. Prothrombin Time & INR [facility] Ordered by Maya Barron MD [...] are final unless otherwise noted. Reported Physicians [facility] Ordered by Maya Barron MD on 12/07/2019 Collected: 12/07/2019 Reported: 12/07/2019 17:21 Reported Physicians See Note None Note: Reported Physicians:Ordering: Aj Snowending: Jos Castellanos To: Maya Barron Reviewed by Maya Barron MD on 12/09; All test results are final unless otherwise noted. Urinalysis w/out microscopy Office Lab Ordered by Maya Barron MD on 11/22/2019 [address] [place], [address] Specimen Source: Urine Collected: 11/22/2019 Reporte d: [...] results are final unless otherwise noted. TROPONIN [facility] Ordered by Maya Barron MD on 11/19/2019 Collected: 11/19/2019 Reported: 11/19/2019 10:30 Troponin I SerPl-mCnc Less Than 0.015 (0.00-0.09) N (Normal) Note: Less than 0.09 NG/ML Negative 0.10 - 0.77 NG/ML High Risk0.78 NG/ML or Greater PositiveThe WHO defined the cutoff (definition for diagnosis of DE)for this method as 0.78 ng/ml.Responsible Observer: Troponin I Troponin I 600.1101 (G) Reviewed by Maya Barron MD on 11/18; All test results are final unless otherwise noted. Reported Physicians [facility] Ordered by Maya Barron MD on 11/19/2019 Collected: 11/19/2019 Reported: 11/19/2019 10:30 Reported Physicians See Note None Note: Reported Physicians:Ordering: Oscar Del Cidending: Vandana Burrows To: Maya Barron Reviewed by Maya Barron MD on 11/18; All test results are final unless otherwise noted. CBC W AUTO DIFF [facility] Ordered by Maya Barron MD [...] Auto See Note (0-2) N (Normal) Note: [id number] ible Observer: IG% IG% 100.1375 (B) Hct [...] are final unless otherwise noted. BHCG,SERUM QUALITATIVE [facility] Ordered by Maya Barron MD [...] results are final unless otherwise noted. [facility] Ordered by Maya Barron [...] are final unless otherwise noted. Reported Physicians [facility] Ordered by Maya Barron MD on 11/19/2019 Collected: 11/19/2019 Reported: 11/19/2019 10:08 Reported Physicians See Note None Note: Reported Physicians:Ordering: Oscar Del Cidending: Vandana Burrows To: Maya Barron Reviewed by Maya Barron MD on 11/18; All test results are final unless otherwise noted. [facility] Ordered by Maya Barron MD on 11/15/2019 [address] [place], [address] Collected: 11/15/2019 Reported: 11/16/2019 13:40 tel :[phone] ext. [phone] GRAN# 2.2 /mm3 (2.5-7.5) L [...] test results are final unless otherwise noted. [facility] Doctor's In-house Laboratory Ordered by Maya Barron MD on 11/15/2019 [address] [place], [address] Collected: 11/15/2019 Reported: 11/16/2019 13:40 tel : [...] Ordered by Maya Barron MD on 11/15/[address] [place] [address], [facility] Collected: 11/15/2019 Reported: 11/16/2019 13:40 tel : ext. 1500 TSH 2.257 uIu/mL (0.5-5.8) None Note: Responsible Observer: AW Reviewed by Myaa Barron MD on 11/15; All test results are final unless otherwise noted. [facility] Ordered by Maya Barron MD [...] are final unless otherwise noted. Reported Physicians [facility] Ordered by Maya Barron MD on 11/15/2019 Collected: 11/15/2019 Reported: 11/15/2019 15:27 Reported Physicians See Note None Note: Reported Physicians:Ordering: Maya AlvarengaAttending: Maya Barron Reviewed by Maya Barron MD on 11/14; All test results are final unless otherwise noted. Urinalysis w/out microscopy Office Lab Ordered by Maya Barron MD on [address] [place] [address], [address] Specimen Source: Urine Collected: Reported: 2020 11:41 tel:[phone] bilirubin NEGATIVE (neg) N (Normal) blood NEGATIVE [...] by Maya Barron MD on 12/27/[address] [place] [address], [phone] Specimen Source: Urine Collected: Reported: 2019 13:46 tel:[phone] Urine HCG negative (negative) N (Normal) Reviewed [...] weeks gestatio n of Maya Barron MD [facility], [facility] 10/24/2020 REVISIT- office visit KAYLEIGH 16 weeks gestatio n of Maya Barron MD [facility], [facility] 10/17/2020 Holter Monitor, Physician review & interpretation only 41120 Palpitations Michel Villalba MD [facility] Outpt 10/11/2020 REVISIT- office visit KAYLEIGH 15 weeks gestatio n of Maya Barron MD [facility], [facility] 10/11/2020 REVISIT- office visit KAYLEIGH 13 weeks gestatio n of Maya Barron MD [facility], [facility] 09/27/2020 REVISIT- office visit KAYLEIGH 12 weeks gestatio n of Maya Barron MD [facility], [facility] 09/19/2020 EKG- Electrocardiogram/12 lead 59005 Chest pain, unspe cified Cat Gutierrez [facility], [facility] 09/11/2020 REVISIT- office visit KAYLEIGH 10 weeks gestatio n of Cat Gutierrez [facility], [facility] 09/05/2020 REVISIT- office visit KAYLEIGH 8 weeks gestation of Maya Barron MD [facility], [facility] 08/22/2020 Urinalysis w/o Microscopy (Distinct Seperate service-same da y) 02901 Frequency of micturition- Urinary Frequency Maya Barron MD [facility], [facility] 08/15/2020 RAPID STREP 90779 Acute pharyngitis, unspecified Maya Barron MD [facility], [facility] 08/15/2020 Initial Obstetrical Care Office Visit OB Le ss than 8 weeks gestation of Cat Gutierrez [facility], [facility] 021 Urinalysis w/o Microscopy 68144 Frequency of micturiti on- Urinary Frequency Maya Barron MD [facility], [facility] 07/19/2020 REVISIT- office visit KAYLEIGH Threatened Alicja Barron MD [facility], [facility] 05/26/2020 NO CHARGE- Nurse visit- OB establish [employer] Thr eatened , state, incidental Maya Barron MD [facility], [facility] 020 General Health Panel( CMP, CBC, TSH) 55741 Dysmenorrhe a, unspecified Maya Barron MD [facility], [facility] 04/10/2020 Venipuncture (routine) 80980 Dysmenorrhea, unspecified Mariela Barron MD [facility], [facility] 04/10/2020 Brief Emotional Behavior Assessment ( add -59 mod) 41017 Screening for Mental Health/Behavioral Disorder, Unspecified Maya Barron MD [facility], [facility] 04/10/2020 Urine Test 64688 Pelvic and perineal pain, Frequency of micturition- Urinary Frequency Maya Barron MD [facility], [facility] 02/25/2020 Urinalysis w/o Microscopy 62351 Frequency of micturiti on- Urinary Frequency Maya Barron MD [facility], [facility] 02/25/2020 Urine Test 47953 Amenorrhea, unspecified Maya Barron MD [facility], [facility] 12/27/2019 Urinalysis w/o Microscopy 10333 Right upper quadrant pain Trinity Barron MD [facility], [facility] 11/22/2019 General Health Panel( CMP, CBC, TSH) 86333 Other fatigue Alicja Barron MD [facility], [facility] 11/15/2019 Venipuncture (routine) 58554 Other fatigue Maya Barron MD [facility], [facility] 11/15/2019 Surgical History Last Updated [...] REVISIT- Routine (OB) Visit Maya Barron MD [facility], [facility] 10/31/2020 9:54AM 10/24/2020 11:59PM Chronic Care Mgt - Office Visit Maya Barron MD [facility], [facility] 10/24/2020 2:16PM 11:59PM REVISIT- Routine (OB) Visit Maya Barron MD [facility], [facility] 10/24/2020 10:00AM 10:47AM REVISIT- Routine (OB) Visit Maya Barron MD [facility], [facility] 10/17/2020 11:24AM 12:12PM Chronic Care Mgt - Office Visit Maya Barron MD [facility], [facility] 10/17/2020 11:25AM 12:11PM Fracture of Fift h Cervical Vertebral Body, History of Psychiatric Disorders, Reactive Airway Disease REVISIT- Routine (OB) Visit Maya Barron MD [facility], [facility] 10/11/2020 9:44AM 10:15AM OB- ILL VISIT Maya Barron MD [facility], [facility] 10/04/2020 2:12PM 2:31PM Presyncope Syndrome, Tachyca rdia, Palpitations, Difficulty Breathing (Dyspnea), Weeks of Gestation - 14 REVISIT- Routine (OB) Visit Maya Barron MD [facility], [facility] 09/27/2020 1:36PM 1:59PM telephone conversation Michel Villalba MD 09/19/2020 9:43PM 09/19/2020 11:59PM Atypical Chest Pain REVISIT- Routine (OB) Visit Maya Barron MD [facility], [facility] 09/19/2020 9:48AM 10:14AM REVISIT- Routine (OB) Visit Cat Gutierrez [facility], [facility] 09/11/2020 3:22PM 4:16PM REVISIT- Routine (OB) Visit Cat Gutierrez [facility], [facility] 09/05/2020 9:37AM 10:00AM TCMNV phone call- NO CHARGE Cat Gutierrez [facility] 09/04/2020 09/05/2020 4:54PM 09/05/2020 11:59PM [Patient Encounter] Cat Gutierrez [facility] 08/31/2020 021 2:21PM 08/22/2020 11:59PM telephone conversation Michel Villalba MD 08/2808/22/2020 11:00AM 08/22/2020 11:59PM REVISIT- Routine (OB) Visit Maya Barron MD [facility], [facility] 08/22/2020 1:56PM 2:19PM sick visit Maya Barron MD [facility] 0 08/15/2020 9:36AM 10:12AM Upper Respiratory Infection Acute, Pollakiuria Obstetrics/ first visit Cat Gutierrez [facility], [facility] 08/09/2020 9:22AM 10:56AM followup Cat Gutierrez [facility] 0 08/02/2020 10:18AM 11:42AM Generalized Anxiety Disorder , Early Stage, Abdominal Pain telephone conversation Michel Villalba MD 07/26/2020 7:59AM 07/26/2020 11:59PM [Patient Encounter] Cat Gutierrez [facility] 07/28/2020 021 2:20PM 07/26/2020 11:59PM followup Maya Barron MD [facility] 0 07/26/2020 10:39AM 11:02AM , Generalized Anxie ty Disorder sick visit Bandar Cleveland PA-C [facility] 1 3:36PM 4:30PM Pyrexia followup Maya Barron MD [facility] 0 07/19/2020 10:52AM 11:30AM , Generalized Anxie ty Disorder, Pollakiuria followup Maya Barron MD [facility] 1 09/11/2019 10:43AM 11:14AM Atypical Chest Pain, Adjustm ent Disorder followup Maya Barron MD [facility] 1 08/07/2019 10:43AM 10:59AM Missed followup Maya Barron MD [facility] 05/26 1:45PM 2:11PM with Threatened Problem visit - not contagious Maya Barron MD [facility] 05/24/2020 11:13AM 12:00PM with T hreatened [Patient Encounter] Maya Barron MD 05/24/2020 020 10:17AM 04/19/2020 11:59PM followup Maya Barron MD [facility] 1 11:51AM 12:08PM ANNUAL PE-followup Maya Barron MD [facility] 04/10/2020 8:42AM 9:13AM Routine History and Physical Adult (18 - 64 Yrs), Dysmenorrhea sick visit Maya Barron MD [facility] 0 03/06/2020 3:32PM 3:42PM Sinusitis sick visit Maya Barron MD [facility] 0 02/25/2020 10:46AM 11:12AM Pollakiuria, Female Pelvic P ain followup Maya Barron MD [facility] 01/31 2:25PM 2:51PM Back Strain followup Maya Barrno MD [facility] 12/26 1:25PM 1:42PM Amenorrhea, Clostridium Difficile sick visit Maya Barron MD [facility] [facility] 0 12/07/2019 4:00PM 4:17PM Abdominal Pain sick visit Maya Barron MD [facility] 0 11/22/2019 3:13PM 3:37PM Esophageal Reflux, Abdominal Pain, Generalized Anxiety Disorder sick visit Maya Barron MD [facility] 0 11/15/2019 12:50PM 1:20PM Fatigue, Nausea, Presyncope Syndrome, Generalized Anxiety Disorder sick visit Cat Gutierrez [facility] 0 11/05/2019 11:30AM 11:49AM Atopic Dermatitis Insurance Includes: Active Insurance Policies Plan Name Member ID Group # Subscriber Relationship Effective Da greg 1 - MANAGED MEDICAID [facility] [id number] Georgiana Pickard Self 2020 - Unknown Advance Directives Includes: Current Advance DirectivesNo Advance Directives Recorded Health Concerns Includes: Active Health ConcernsNo Active Health Concerns Recorded Goals Includes: Active GoalsNo Active Goals Recorded Interventions Includes: Interventions for active GoalsNo Interventions Recorded Evaluations & Outcomes Includes: Evaluations & Outcomes for active GoalsNo Outcomes Recorded
--- OUTSIDE RECORDS SUMMARY | 2021-04-29 17:09 | CCD ---
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 Advised reaching out to social contact worker for assistance with access to food [...] prior to follow-up [Threatened ] followup with Maay Barron MD 05/26/2020 with threatened Hcg pending [...] history and physical (18 - 63 yrs) [employer] care with women's health, ALD on health maintenance. Patient now 20 and [...] MD 11/15/2019 Atopic dermatitis sick visit with [facility] 10/13 Benign pigmented nevus sick visit with [facility] 0 08/31/2019 Female pelvic pain sick visit with [facility] 08/14 Pharyngitis urgent visit with Linda Smith [facility] 08/07 Nail disorders in diseases [...] history and physical (18 - 63 yrs) [employer] care with women's [facility], ALD on health maintenance [Encounter for general [...] fifth cervical vertebral body No Fault with [facility] a [facility] 03/04/2018 Late effects of [...] Recorded Vital Signs Includes: Vital Signs from 10/25/2019 through 10/24/2020 Vital Name 10/24/2020 10:12A 10/17/2020 11:34A 10/11/2020 09:56A 10/04/2020 02:18P 09/27/2020 01:44P Blood Pressure Sitting L 100/60 110/56 110/60 98/62 BP Cuff Size Regular Regular Regular Regular Regular Pulse Rate-Sitting (bpm) 80 80 76 116 76 Respiration Rate (breaths/min) 20 20 20 24 20 Weight (lb) 120 118 120 118 120 Blood Pressure Sitting R 100/60 Vital Name 09/19/2020 09:58A 09/11/2020 03:39P 09/05/2020 09:48A 08/22/2020 02:14P 08/15/2020 09:54A Blood Pressure Sitting L 100/60 BP Cuff Size Regular Pulse Rate-Sitting (bpm) 76 78 72 Respiration Rate (breaths/min) 20 18 Weight (lb) 119 118 119 121 Blood Pressure Sitting (mmHg) 104/60 110/68 112/60 100/72 Temp-Tympanic (F) 97.3 Vital Name 08/09/2020 09:27A 08/02/2020 10:58A 07/26/2020 10:46A 07/25/2020 04:09P 07/19/2020 11:05A Blood Pressure Sitting L 102/62 BP Cuff Size Regular Pulse Rate-Sitting (bpm) 72 64 86 80 114 Respiration Rate (breaths/min) 20 20 18 20 18 Weight (lb) 121 123 124 126 121.6 Blood Pressure Sitting (mmHg) 90/50 98/60 118/76 [...] 6 Vital Name 12/07/2019 04:04P 11/22/2019 03:25P 11/15/2019 01:12P 11/05/2019 11:42A Pulse Rate-Sitting (bpm) 75 72 74 72 Respiration Rate (breaths/min) 18 20 20 20 Weight (lb) 114 149 Blood Pressure Sitting (mmHg) 98/60 98/70 108/64 Temp-Oral (F) 97.6 97.6 Results Includes: Results from 10/25/2019 through 10/24/2020 [facility] Ordered by Maya Barron MD on 10/23/2020 Collected: 10/23/2020 Reported: 10/23/2020 01:21 B-HCG [facility] [id number] MilliInternationalUnitsPerMilliLiter_[Arbitrary_Con (0-10) H (High) Note: @Instrument will autodiluteAPPROXI MATE GESTATION AGE APRROXIMATE HCG RANGE 0-1 WEEK 0 - 50 1-2 WEEKS 40 - 300 2-3 WEEKS 100 - 1,000 3-4 WEEKS 500 - 6,000 1-2 MONTHS 5,000 - 200,000 2-3 MONTHS 10,000 - 100,000 2ND TRIMESTER 3,000 - 50,000 3RD TRIMESTER 1,000 - 50,000Responsible Observer: [facility] Quant [facility] Quantitative 600.5006 (G) Reviewed by Maya Barron MD on 10/23; All test results are final unless otherwise noted. Reported Physicians [facility] Ordered by Maya Barron MD on 10/23/2020 Collected: 10/23/2020 Reported: 10/23/2020 01:21 Reported Physicians See Note None Note: Reported Physicians:Ordering: Yoli NapolesAttending: Charles Silva To: Maya Barron Reviewed by Maya Barron MD on 10/23; All test results are final unless otherwise noted. CBC W AUTO DIFF [facility] Ordered by Maya Barron MD [...] Auto See Note (0-2) N (Normal) Note: [id number] Ob bus and sys integration senior manager: IG% IG% 100.1375 (B) Hct VFr Bld [...] test results are final unless otherwise noted. Lab Ordered by Maya Barron MD on 10/23/2020 Collected: 10/23/2020 Reported: 10/23/2020 01:03 ALT SerPl w P-5'-P-cCnc 12 enzyme_unit_per_liter (10-49) N (Normal) Note: Responsible Observer: SGPT/ALT SGP T/ALT 400.1750 (G) Calcium SerPl-mCnc 8.8 MilliGramsPerDeciLiter_[Mass_Concentration_Units] (8.5-10.1) N (Normal) Note: Responsible Observer: Calcium Calc ium 400.2500 (G) Bilirub SerPl-mCnc 0.4 MilliGramsPerDeciLiter_[Mass_Concentration_Units] (0.3-1.2) N (Normal) Note: Responsible Observer: T EKLLIE Total Bilirubin 400.2600 (G) CO2 SerPl-sCnc 23 [...] results are final unless otherwise noted. D-DIMER [facility] Ordered by Maya Barron MD [...] are final unless otherwise noted. Reported Physicians [facility] Ordered by Maya Barron MD on 10/23/2020 Collected: 10/23/2020 Reported: 10/23/2020 01:22 Reported Physicians See Note None Note: Reported Physicians:Ordering: Brook yeung, PatAttending: Yoli SilvaCopyifan To: Maya Barron Reviewed by Maya Barron MD on 10/23; All test results are final unless otherwise noted. TROPONIN [facility] Ordered by Maya Barron MD on 10/23/2020 Collected: 10/23/2020 Reported: 10/23/2020 01:03 Troponin I SerPl-mCnc Less Than 0.015 (0.00-0.09) N (Normal) Note: Less than 0.09 NG/ML Negative 0.10 - 0.77 NG/ML High Risk0.78 NG/ML or Greater PositiveThe WHO defined the cutoff (definition for diagnosis of NV)for this method as 0.78 ng/ml.Responsible Observer: Troponin I Troponin I 600.1101 (G) Reviewed by Maya Barron MD on 10/23; All test results are final unless otherwise noted. Reported Physicians [facility] Ordered by Maya Barron MD on 10/23/2020 Collected: 10/23/2020 Reported: 10/23/2020 01:03 Reported Physicians See Note None Note: Reported Physicians:Ordering: Yoli NapolesAttending: Charles Silva To: Maya Barron Reviewed by Maya Barron MD on 10/23; All test results are final unless otherwise noted. FREE T4 (LAB) [facility] Ordered by Maya Barron MD on 10/21/2020 Collected: 10/21/2020 Reported: 10/21/2020 15:17 T4 Free SerPl-mCnc 0.97 NanoGramsPerDeciLiter_[Mass_Concentration_Units] (0.89-1.76) N (Normal) Note: Responsible Observer: FREE T4 Free Thyroxine 600.7005 (D) Reviewed by Maya Barron MD on 10/23; All test results are final unless otherwise noted. Reported Physicians [facility] Ordered by Maya Barron MD on 10/21/2020 Collected: 10/21/2020 Reported: 10/21/2020 15:17 Reported Physicians See Note None Note: Reported Physicians:Ordering: Talisha bauer, TimothyAttending: Tramaine PardoothyCopyifan To: Maya Barron Reviewed by Maya Barron MD on 10/23; All test results are final unless otherwise noted. TSH [facility] Ordered by Maya Barron MD on 10/21/2020 Collected: 10/21/2020 Reported: 10/21/2020 15:17 TSH SerPl DL<=0.005 mIU/L-aCnc 1.40 MicroInternationalUnitsPerMilliLiter_[Arbitrary_Con (0.35-5. 50) N (Normal) Note: Responsible Observer: TSH TSH 600 .7055 (D) Reviewed by Maya Barron MD on 10/23; All test results are final unless otherwise noted. Reported Physicians [facility] Ordered by Maya Barron MD on 10/21/2020 Collected: 10/21/2020 Reported: 10/21/2020 15:17 Reported Physicians See Note None Note: Reported Physicians:Ordering: Math is, TimothyAttending: Edvin TimothyCopyifan To: Maya Barron Reviewed by Maya Barron MD on 10/23; All test results are final unless otherwise noted. UA W/ CULTURE IF ABNORMAL [facility] Ordered by Maya Barron MD on 10/19/2020 Collected: 10/19/2020 Reported: 10/19/2020 16:31 Urobilinogen Ur Ql See Note (0.2-1 EU/dl) None Note: 0.2 EU/dl0.2 EU/[id number] E U/dlResponsible Observer: UROBILINOGEN UROBILINOGEN 300.4500 (C) RBC # Ur Strip NEGATIVE (NEGATIVE) None Note: Responsible Observer: BLOOD BLOOD 300.4652 (C) Prot Ur Ql Strip See Note (NEGATIVE) None Note: [id number] EResponsible Observer: PROTEIN PROTEIN 300.3750 (C) Ketones Ur Ql Strip See Note (NEGATIVE) None Note: [id number] EResponsible Observer: KETONE KETONE 300.3900 (C) Bilirub Ur Ql Strip.auto See Note (NEGATIVE) None Note: [id number] EResponsible Observer: BILIRUBIN BILIRUBIN 300.4550 (C) Glucose Ur Strip.auto-mCnc 100 mg/dl (NEGATIVE) None Note: Responsible Observer: GLUCOSE GLUC OSE 300.3850 (C) Appearance Ur See Note (CLEAR) None Note: CLEARCLEARLCLEARResponsible Observ er: APPEARANCE APPEARANCE 300.3400 (A) Color Ur See Note None Note: YELLOWYELLOWLYELLOWResponsible Obs erver: COLOR COLOR 300.3330 (A) Leukocyte esterase Ur Ql Strip See Note (NEGATIVE) None Note: [id number] EResponsible Observer: LEUKOCYTES LEUKOCYTES 300.3576 (C) Nitrite Ur Ql Strip See Note (NEGATIVE) None Note: [id number] EResponsible Observer: NITRITE NITRITE 300.3652 (B) pH [...] are final unless otherwise noted. Reported Physicians [facility] Ordered by Maya Barron MD on 10/19/2020 Collected: 10/19/2020 Reported: 10/19/2020 16:31 Reported Physicians See Note None Note: Reported Physicians:Ordering: Les Vanegas AAttending: Fady Raza To: Maya Barron Reviewed by Maya Barron MD on 10/20; All test results are final unless otherwise noted. URINE DRUG SCREEN -([facility]) [facility] Ordered by Maya Barron MD on 10/19/2020 Collected: 10/19/2020 Reported: 10/19/2020 16:40 PCP Ur Ql Scn>25 ng/mL See Note (Cutoff 25) None Note: [id number] E@Reenter manual test result: NEGATIVE@by Jia Lentz at 10/19/20 1639.Responsible Observer: PCP Urine Phencyclidine (PCP) Scrn 400.5120 (A) THC Ur Ql Scn>50 ng/mL See Note (Cutoff 50) None Note: [id number] EResponsible Observer: Marijuana (THC) Ur Marijuana (THC) Screen 400.5110 (A) Benzodiaz Ur Ql Scn See Note (Cutoff 150) None Note: [id number] E@Reenter manual test result: NEGATIVE@by Jia Lentz at 10/19/20 1640.Responsible Observer: Benzodiazepines Urine Benzodiazepines Screen 400.5170 (A) Opiates Ur Ql Scn See Note (Cutoff 100) None Note: [id number] E@Reenter manual test result: NEGATIVE@by Jia Lentz at 10/19/20 1640.Responsible Observer: Opiates Urine Opiates Screen 400.5150 (A) Tricyclics Ur Ql Scn See Note (Cutoff 300) None Note: [id number] E@Reenter manual test result: NEGATIVE@by Jia Lentz at 10/19/20 1640.Responsible Observer: TCA Ur Tricyclic Antidepressants 400.5180 (A) Cocaine Ur Ql Scn See Note (Cutoff 150) None Note: [id number] E@Reenter manual test result: NEGATIVE@by Jia Lentz at 10/19/20 1640.Responsible Observer: Cocaine Urine Cocaine Screen 400.5130 (A) Propoxyph+Nor Ur Ql Scn See Note (Cutoff 300) None Note: [id number] E@Reenter manual test result: NEGATIVE@by Jia Lentz at 10/19/20 1640.Responsible Observer: Propoxyphene Urine Propoxyphene Screen 400.5220 (A) Methadone Ur Ql Scn See Note (Cutoff 200) None Note: [id number] E@Reenter manual test result: NEGATIVE@by Jia Lentz at 10/19/20 1640.Responsible Observer: Methadone Urine Methadone Screen 400.5190 (A) Methamphet Ur Ql Scn See Note (Cutoff 500) None Note: [id number] E@Reenter manual test result: NEGATIVE@by Jia Lentz at 10/19/20 1640.Responsible Observer: Methamphetamine Urine Methamphetamines Screen 400.5140 (A) oxyCODONE Ur Ql Scn See Note (Cutoff 100) None Note: [id number] E@Reenter manual test result: NEGATIVE@by Jia Lentz at 10/19/20 1640.Responsible Observer: Oxycodone Urine Oxycodone Screen 400.5210 (A) Buprenorphine Ur Ql See Note (Cutoff 10) None Note: [id number] E@Reenter manual test result: NEGATIVE@by Jia Lentz at 10/19/20 1640.Responsible Observer: Buprenorphine Urine Buprenorphine Screen 400.5230 (A) Amphetamines Ur Ql Scn>500 ng/mL See Note (Cutoff 500) None Note: [id number] E@Reenter manual test result: NEGATIVE@by Jia Lentz at 10/19/20 1640.Responsible Observer: Amphetamines Urine Amphetamines Screen 400.5160 (A) Barbiturates Ur Ql Scn>200 ng/mL See Note (Cutoff 200) None Note: [id number] E@Reenter manual test result: NEGATIVE@by Jia Lentz at 10/19/20 1640.Responsible Observer: Barbiturates Urine Barbiturates 400.5200 (A) Reviewed by Maya Barron MD on 10/20; All test results are final unless otherwise noted. Reported Physicians [facility] Ordered by Maya Barron MD on 10/19/2020 Collected: 10/19/2020 Reported: 10/19/2020 16:40 Reported Physicians See Note None Note: Reported Physicians:Ordering: Les Vanegas: Fady Raza To: Maya Barron Reviewed by Maya Barron MD on 10/20; All test results are final unless otherwise noted. TSH w/ reflex to Free T4 [facility] Ordered by Maya Barron MD on 10/19/2020 Collected: 10/19/2020 Reported: 10/19/2020 16:08 TSH SerPl DL<=0.005 mIU/L-aCnc 1.66 MicroInternationalUnitsPerMilliLiter_[Arbitrary_Con (0.35-5. 50) N (Normal) Note: Responsible Observer: TSH TSH 600 .7060 (D) Reviewed by Maya Barron MD on 10/20; All test results are final unless otherwise noted. Reported Physicians [facility] Ordered by Maya Barron MD on 10/19/2020 Collected: 10/19/2020 Reported: 10/19/2020 16:08 Reported Physicians See Note None Note: Reported Physicians:Ordering: Les Vanegas: Fady Raza To: Maya Barron Reviewed by Maya Barron MD on 10/20; All test results are final unless otherwise noted. TROPONIN [facility] Ordered by Maya Barron MD on 10/19/2020 Collected: 10/19/2020 Reported: 10/19/2020 16:10 Troponin I SerPl-mCnc Less Than 0.015 (0.00-0.09) N (Normal) Note: Less than 0.09 NG/ML Negative 0.10 - 0.77 NG/ML High Risk0.78 NG/ML or Greater PositiveThe WHO defined the cutoff (definition for diagnosis of NV)for this method as 0.78 ng/ml.Responsible Observer: Troponin I Troponin I 600.1101 (G) Reviewed by Maya Barron MD on 10/20; All test results are final unless otherwise noted. Reported Physicians [facility] Ordered by Maya Barron MD on 10/19/2020 Collected: 10/19/2020 Reported: 10/19/2020 16:10 Reported Physicians See Note None Note: Reported Physicians:Ordering: Les Vanegas: Fady Raza To: Maya Barron Reviewed by Maya Barron MD on 10/20; All test results are final unless otherwise noted. CRP, C-REACTIVE PROTEIN [facility] Ordered by Maya Barron MD on 10/19/2020 Collected: 10/19/2020 Reported: 10/19/2020 16:08 CRP SerPl-mCnc 7.5 MilliGramsPerLiter_[Mass_Concentration_Units] (0.0-5.0) H (High) Note: Responsible Observer: CRP C-Reacti ve Protein 401.4355 (H) Reviewed by Maya Barron MD on 10/20; All test results are final unless otherwise noted. SED RATE [facility] Ordered by Maya Barron MD on 10/19/2020 Collected: 10/19/2020 Reported: 10/19/2020 16:32 ESR Bld Qn Westrgrn 22 (0-20) H (High) Note: @Reenter manual test result: 22@by Jia Lentz at 10/19/20 1632.Responsible Observer: SED RATE SED RATE 100.6400 (B) Reviewed by Maya Barron MD on 10/20; All test results are final unless otherwise noted. Reported Physicians [facility] Ordered by Maya Barron MD on 10/19/2020 Collected: 10/19/2020 Reported: 10/19/2020 16:33 Reported Physicians See Note None Note: Reported Physicians:Ordering: Les Vanegas: Fady Raza To: Maya Barron Reviewed by Maya Barron MD on 10/20; All test results are final unless otherwise noted. CMP [facility] Ordered by Maya Barron MD [...] unless otherwise noted. CBC W AUTO DIFF [facility] Ordered by Maya Barron MD [...] Auto See Note (0-2) N (Normal) Note: [id number] Ob bus and sys integration senior manager: IG% IG% 100.1375 (B) Hct VFr Bld [...] are final unless otherwise noted. Reported Physicians [facility] Ordered by Myaa Barron MD on 10/19/2020 Collected: 10/19/2020 Reported: 10/19/2020 16:33 Reported Physicians See Note None Note: Reported Physicians:Ordering: Les Vanegasding: Fady Raza To: Maya Barron Reviewed by Maya Barron MD on 10/20; All test results are final unless otherwise noted. PT/PTT [facility] Ordered by Maya Barron MD [...] are final unless otherwise noted. Reported Physicians [facility] Ordered by Maya Barron MD on 10/08/2020 Collected: 10/08/2020 Reported: 10/08/2020 03:22 Reported Physicians See Note None Note: Reported Physicians:Ordering: Sana Recinosending: Sammie Ann To: Maya Barron Reviewed by Maya Barron MD on 10/09; All test results are final unless otherwise noted. BMP [facility] Ordered by Maya Barron MD [...] are final unless otherwise noted. Reported Physicians [facility] Ordered by Maya Barron MD on 10/08/2020 Collected: 10/08/2020 Reported: 10/08/2020 03:21 Reported Physicians See Note None Note: Reported Physicians:Ordering: Sana Recinosending: Sammie Ann To: Maya Barron Reviewed by Maya Barron MD on 10/09; All test results are final unless otherwise noted. CBC W AUTO DIFF [facility] Ordered by Maya Barron MD [...] Auto See Note (0-2) N (Normal) Note: [id number] Ob bus and sys integration senior manager: IG% IG% 100.1375 (B) Hct VFr Bld [...] results are final unless otherwise noted. MAGNESIUM [facility] Ordered by Maya Barron MD on 10/08/2020 Collected: 10/08/2020 Reported: 10/08/2020 03:17 Magnesium SerPl-mCnc 1.8 MilliGramsPerDeciLiter_[Mass_Concentration_Units] (1.3-2.7) N (Normal) Note: Responsible Observer: Magnesium Ma gnesium 400.3300 (G) Reviewed by Maay Barron MD on 10/09; All test results are final unless otherwise noted. D-DIMER [facility] Ordered by Maya Barron MD [...] are final unless otherwise noted. Reported Physicians [facility] Ordered by Maya Barron MD on 10/08/2020 Collected: 10/08/2020 Reported: 10/08/2020 03:27 Reported Physicians See Note None Note: Reported Physicians:Ordering: Sana Recinosending: Sammie Ann To: Maya Barron Reviewed by Maya Barron MD on 10/09; All test results are final unless otherwise noted. TSH w/ reflex to Free T4 [facility] Ordered by Maya Barron MD on 10/04/2020 Collected: 10/04/2020 Reported: 10/04/2020 17:42 TSH SerPl DL<=0.005 mIU/L-aCnc 1.92 MicroInternationalUnitsPerMilliLiter_[Arbitrary_Con (0.35-5. 50) N (Normal) Note: Responsible Observer: TSH TSH 600 .7060 (D) Reviewed by Maya Barron MD on 10/09; All test results are final unless otherwise noted. Reported Physicians [facility] Ordered by Maya Barron MD on 10/04/2020 Collected: 10/04/2020 Reported: 10/04/2020 17:42 Reported Physicians See Note None Note: Reported Physicians:Ordering: Les Vanegasding: Fady Raza To: Maya Barron Reviewed by Maya Barron MD on 10/09; All test results are final unless otherwise noted. CBC W AUTO DIFF [facility] Ordered by Maya Barron MD [...] Auto See Note (0-2) N (Normal) Note: [id number] Ob bus and sys integration senior manager: IG% IG% 100.1375 (B) Hct VFr Bld [...] test results are final unless otherwise noted. Lab Ordered by Maya Barron MD on [...] are final unless otherwise noted. Reported Physicians [facility] Ordered by Maya Barron MD on 10/04/2020 Collected: 10/04/2020 Reported: 10/04/2020 17:42 Reported Physicians See Note None Note: Reported Physicians:Ordering: Les Vanegas: Fady Raza To: Maya Barron Reviewed by Maya Barron MD on 10/09; All test results are final unless otherwise noted. SED RATE [facility] Ordered by Maya Barron MD on 10/04/2020 Collected: 10/04/2020 Reported: 10/04/2020 18:05 ESR Bld Qn Westrgrn 16 (0-20) N (Normal) Note: @Reenter manual test result: 16@by Jia Lentz at 10/04/20 1805.Responsible Observer: SED RATE SED RATE 100.6400 (B) Reviewed by Maya Barron MD on 10/09; All test results are final unless otherwise noted. Reported Physicians [facility] Ordered by Maya Barron MD on 10/04/2020 Collected: 10/04/2020 Reported: 10/04/2020 18:06 Reported Physicians See Note None Note: Reported Physicians:Ordering: Les Vanegasding: Fady Raza To: Maya Barron Reviewed by Maya Barron MD on 10/09; All test results are final unless otherwise noted. TROPONIN [facility] Ordered by Maya Barron MD on 10/04/2020 Collected: 10/04/2020 Reported: 10/04/2020 17:35 Troponin I SerPl-mCnc Less Than 0.015 (0.00-0.09) N (Normal) Note: Less than 0.09 NG/ML Negative 0.10 - 0.77 NG/ML High Risk0.78 NG/ML or Greater PositiveThe WHO defined the cutoff (definition for diagnosis of NV)for this method as 0.78 ng/ml.Responsible Observer: Troponin I Troponin I 600.1101 (G) Reviewed by Maya Barron MD on 10/09; All test results are final unless otherwise noted. Reported Physicians [facility] Ordered by Maya Barron MD on 10/04/2020 Collected: 10/04/2020 Reported: 10/04/2020 17:35 Reported Physicians See Note None Note: Reported Physicians:Ordering: Les Vanegastending: Fady Raza To: Maya Barron Reviewed by Maya Barron MD on 10/09; All test results are final unless otherwise noted. CBC W AUTO DIFF [facility] Ordered by Maya Barron MD [...] Auto See Note (0-2) N (Normal) Note: [id number] Ob bus and sys integration senior manager: IG% IG% 100.1375 (B) Hct VFr Bld [...] test results are final unless otherwise noted. Lab Ordered by Maya Barron MD on [...] are final unless otherwise noted. Reported Physicians [facility] Ordered by Maya Barron MD on 10/03/2020 Collected: 10/03/2020 Reported: 10/03/2020 20:03 Reported Physicians See Note None Note: Reported Physicians:Ordering: Yoli NapolesAttending: Charles Silva To: Maya Barron Reviewed by Maya Barron MD on 10/04; All test results are final unless otherwise noted. BHCG Quantitative [facility] Ordered by Maya Barron MD on 10/03/2020 Collected: 10/03/2020 Reported: 10/03/2020 20:23 B-HCG SerPl-aCnc 18246 MilliInternationalUnitsPerMilliLiter_[Arbitrary_Con (0-10) H (High) Note: @Instrument will [...] are final unless otherwise noted. Reported Physicians [facility] Ordered by Maya Barron MD on 10/03/2020 Collected: 10/03/2020 Reported: 10/03/2020 20:23 Reported Physicians See Note None Note: Reported Physicians:Ordering: Susi Napoles: Charles Silva To: Maya Barron Reviewed by Maya Barron MD on 10/04; All test results are final unless otherwise noted. TROPONIN [facility] Ordered by Maya Barron MD on 10/03/2020 Collected: 10/03/2020 Reported: 10/03/2020 20:07 Troponin I SerPl-mCnc Less Than 0.015 (0.00-0.09) N (Normal) Note: Less than 0.09 NG/ML Negative 0.10 - 0.77 NG/ML High Risk0.78 NG/ML or Greater PositiveThe WHO defined the cutoff (definition for diagnosis of NV)for this method as 0.78 ng/ml.Responsible Observer: Troponin I Troponin I 600.1101 (G) Reviewed by Maya Barron MD on 10/04; All test results are final unless otherwise noted. Reported Physicians [facility] Ordered by Maya Barron MD on 10/03/2020 Collected: 10/03/2020 Reported: 10/03/2020 20:07 Reported Physicians See Note None Note: Reported Physicians:Ordering: Yoli NapolesAttending: Charles Silva To: Maya Barron Reviewed by Maya Barron MD on 10/04; All test results are final unless otherwise noted. MANUAL DIFF [facility] Ordered by Maya Barron MD [...] are final unless otherwise noted. Reported Physicians [facility] Ordered by Maya Barron MD on 10/03/2020 Collected: 10/03/2020 Reported: 10/03/2020 19:56 Reported Physicians See Note None Note: Reported Physicians:Ordering: Yoli NapolesAttending: Charles Silva To: Maya Barron Reviewed by Maya Barron MD on 10/04; All test results are final unless otherwise noted. FREE T4 (LAB) [facility] Ordered by Maya Barron MD on 10/03/2020 Collected: 10/03/2020 Reported: 10/03/2020 20:08 T4 Free SerPl-mCnc 0.97 NanoGramsPerDeciLiter_[Mass_Concentration_Units] (0.89-1.76) N (Normal) Note: Responsible Observer: FREE T4 Free Thyroxine 600.7005 (D) Reviewed by Maya Barron MD on 10/04; All test results are final unless otherwise noted. Reported Physicians [facility] Ordered by Maya Barron MD on 10/03/2020 Collected: 10/03/2020 Reported: 10/03/2020 20:08 Reported Physicians See Note None Note: Reported Physicians:Ordering: Cliff Napolesending: Charles Silva To: Maya Barron Reviewed by Maya Barron MD on 10/04; All test results are final unless otherwise noted. ADD ON MICROSCOPIC [facility] Ordered by Maya Barron MD on 10/03/2020 Collected: 10/03/2020 Reported: 10/03/2020 19:52 ADD ON MICROSCOPIC See Note (0-5) None Note: NOTES OTHER/NOT INTERPRETED Bacteria UrnS Ql Micro SMALL AMOUNT Bacteria UrnS Ql Micro SMALL AMOUNT Bacteria UrnS Ql Micro L Bacteria UrnS Ql Micro Bacteria UrnS Ql Micro Bacteria UrnS Ql Micro Bacteria UrnS Ql Micro [id number] Bacteria UrnS Ql Micro Bacteria UrnS Ql [...] are final unless otherwise noted. Reported Physicians [facility] Ordered by Maya Barron MD on 10/03/2020 Collected: 10/03/2020 Reported: 10/03/2020 19:52 Reported Physicians See Note None Note: Reported Physicians:Ordering: Cliff Napolesending: Charles Silva To: Maya Barron Reviewed by Maya Barron MD on 10/04; All test results are final unless otherwise noted. UA W/ CULTURE IF ABNORMAL [facility] Ordered by Maya Barron MD on 10/03/2020 Collected: 10/03/2020 Reported: 10/03/2020 19:52 Urobilinogen Ur Ql See Note (0.2-1 EU/dl) None Note: 0.2 EU/dl0.2 EU/[id number] E U/dlResponsible Observer: UROBILINOGEN UROBILINOGEN 300.4500 (C) RBC # Ur Strip NEGATIVE (NEGATIVE) None Note: Responsible Observer: BLOOD BLOOD 300.4652 (C) Prot Ur Ql Strip See Note (NEGATIVE) None Note: [id number] EResponsible Observer: PROTEIN PROTEIN 300.3750 (C) Ketones Ur Ql Strip See Note (NEGATIVE) None Note: [id number] EResponsible Observer: KETONE KETONE 300.3900 (C) Bilirub Ur Ql Strip.auto See Note (NEGATIVE) None Note: [id number] EResponsible Observer: BILIRUBIN BILIRUBIN 300.4550 (C) Glucose Ur Strip.auto-mCnc NEGATIVE (NEGATIVE) None Note: Responsible Observer: GLUCOSE GLUC OSE 300.3850 (C) Appearance Ur See Note (CLEAR) None Note: CLEARCLEARLCLEARResponsible Observ er: APPEARANCE APPEARANCE 300.3400 (A) Color Ur See Note None Note: YELLOWYELLOWLYELLOWResponsible Obs erver: COLOR COLOR 300.3330 (A) Leukocyte esterase Ur Ql Strip See Note (NEGATIVE) None Note: [id number]@DO MICR O!!!!A Culture has been added to this specimen per established criteriaResponsible Observer: LEUKOCYTES LEUKOCYTES 300.3576 (C) Nitrite Ur Ql Strip See Note (NEGATIVE) None Note: [id number] EResponsible Observer: NITRITE NITRITE 300.3652 (B) pH [...] are final unless otherwise noted. Urine culture [facility] Ordered by Maya Barron MD on 10/03/2020 Collected: 10/03/2020 Reported: 10/04/2020 13:10 Bacteria Ur Cult See Note None Note: NGNo growth.L1NG NOTES See Note None Note: @10/03/201951: Urine culture adde d. RFLXG = CULT.ADD. Reviewed by Maya Barron MD on 10/04; All test results are final unless otherwise noted. Reported Physicians [facility] Ordered by Maya Barron MD on 10/03/2020 Collected: 10/03/2020 Reported: 10/04/2020 13:10 Reported Physicians See Note None Note: Reported Physicians:Ordering: Yoli NapolesAttending: Charles Silva To: Maya Barron Reviewed by Maya Barron MD on 10/04; All test results are final unless otherwise noted. BHCG, QUANTITATIVE [facility] Ordered by Maya Barron MD on 09/18/2020 Collected: 09/18/2020 Reported: 09/18/2020 20:21 [facility] [id number] MilliInternationalUnitsPerMilliLiter_[Arbitrary_Con (0-10) H (High) Note: APPROXIMATE GESTATION [...] are final unless otherwise noted. Reported Physicians [facility] Ordered by Maya Barron MD on 09/18/2020 Collected: 09/18/2020 Reported: 09/18/2020 20:22 Reported Physicians See Note None Note: Reported Physicians:Ordering: Cliff Napolesending: Charles Silva To: Maya Barron Reviewed by Maya Barron MD on 09/20; All test results are final unless otherwise noted. CBC W AUTO DIFF [facility] Ordered by Maya Barron MD [...] Auto See Note (0-2) N (Normal) Note: [id number] Ob bus and sys integration senior manager: IG% IG% 100.1375 (B) Hct VFr Bld [...] test results are final unless otherwise noted. Lab Ordered by Maya Barron MD on [...] are final unless otherwise noted. Reported Physicians [facility] Ordered by Maya Barron MD on 09/18/2020 Collected: 09/18/2020 Reported: 09/18/2020 20:10 Reported Physicians See Note None Note: Reported Physicians:Ordering: Yoil NapolesAttending: Charles Silva To: Maya Barron Reviewed by Maya Barron MD on 09/20; All test results are final unless otherwise noted. TROPONIN [facility] Ordered by Maya Barron MD on 09/18/2020 Collected: 09/18/2020 Reported: 09/18/2020 20:10 Troponin I SerPl-mCnc Less Than 0.015 (0.00-0.09) N (Normal) Note: Less than 0.09 NG/ML Negative 0.10 - 0.77 NG/ML High Risk0.78 NG/ML or Greater PositiveThe WHO defined the cutoff (definition for diagnosis of NV)for this method as 0.78 ng/ml.Responsible Observer: Troponin I Troponin I 600.1101 (G) Reviewed by Maya Barron MD on 09/20; All test results are final unless otherwise noted. Reported Physicians [facility] Ordered by Maya Barron MD on 09/18/2020 Collected: 09/18/2020 Reported: 09/18/2020 20:10 Reported Physicians See Note None Note: Reported Physicians:Ordering: Yoli NapolesAttending: Charles Silva To: Maya Barron Reviewed by Maya Barron MD on 09/20; All test results are final unless otherwise noted. Urine culture [facility] Ordered by Cat Gutierrez RPA on 09/11/2020 Collected: 09/11/2020 Reported: 09/12/2020 13:11 Bacteria Ur Cult See Note None Note: NGNo growth.L1NG NOTES See Note None Note: GEORGIANA PICKARD IN OTHER NAME IN MEDICAL RECORD Reviewed by Cat Gutierrez RPA on 09/12; All test results are final unless otherwise noted. Reported Physicians [facility] Ordered by Cat Gutierrez RPA on 09/11/2020 Collected: 09/11/2020 Reported: 09/12/2020 13:11 Reported Physicians See Note None Note: Reported Physicians:Ordering: Cat ConwayAttending: Cat Gutierrez Reviewed by Cat Gutierrez RPA on 09/12; All test results are final unless otherwise noted. UA W/ CULTURE IF ABNORMAL [facility] Ordered by Maya Barron MD on 09/10/2020 Collected: 09/10/2020 Reported: 09/10/2020 17:48 Urobilinogen Ur Ql See Note (0.2-1 EU/dl) None Note: 0.2 EU/dl0.2 EU/[id number] E U/dlResponsible Observer: UROBILINOGEN UROBILINOGEN 300.4500 (C) RBC # Ur Strip NEGATIVE (NEGATIVE) None Note: Responsible Observer: BLOOD BLOOD 300.4652 (C) Prot Ur Ql Strip See Note (NEGATIVE) None Note: [id number] EResponsible Observer: PROTEIN PROTEIN 300.3750 (C) Ketones Ur Ql Strip See Note (NEGATIVE) None Note: [id number] ble Observer: KETONE KETONE 300.3900 (C) Bilirub Ur Ql Strip.auto See Note (NEGATIVE) None Note: [id number] EResponsible Observer: BILIRUBIN BILIRUBIN 300.4550 (C) Glucose Ur Strip.auto-mCnc NEGATIVE (NEGATIVE) None Note: Responsible Observer: GLUCOSE GLUC OSE 300.3850 (C) Appearance Ur See Note (CLEAR) None Note: CLEARCLEARLCLEARResponsible Observ er: APPEARANCE APPEARANCE 300.3400 (A) Color Ur See Note None Note: YELLOWYELLOWLYELLOWResponsible Obs erver: COLOR COLOR 300.3330 (A) Leukocyte esterase Ur Ql Strip See Note (NEGATIVE) None Note: [id number] EResponsible Observer: LEUKOCYTES LEUKOCYTES 300.3576 (C) Nitrite Ur Ql Strip See Note (NEGATIVE) None Note: [id number] EResponsible Observer: NITRITE NITRITE 300.3652 (B) pH [...] are final unless otherwise noted. Reported Physicians [facility] Ordered by Maya Barron MD on 09/10/2020 Collected: 09/10/2020 Reported: 09/10/2020 17:48 Reported Physicians See Note None Note: Reported Physicians:Ordering: Les Vanegas AAttending: Fady Raza To: Maya Barron Reviewed by Maya Barron MD on 09/11; All test results are final unless otherwise noted. BHCG, QUANTITATIVE [facility] Ordered by Maya Barron MD on 09/10/2020 Collected: 09/10/2020 Reported: 09/10/2020 15:48 [facility] [address] MilliInternationalUnitsPerMilliLiter_[Arbitrary_Con (0-10) H (High) Note: @Instrument will [...] are final unless otherwise noted. Reported Physicians [facility] Ordered by Maya Barron MD on 09/10/2020 Collected: 09/10/2020 Reported: 09/10/2020 15:49 Reported Physicians See Note None Note: Reported Physicians:Ordering: Les Vanegas: Fady Raza To: Maya Barron Reviewed by Maya Barron MD on 09/11; All test results are final unless otherwise noted. ABO/Rh Type [facility] Ordered by Maya Barron MD on 09/10/2020 Collected: 09/10/2020 Reported: 09/10/2020 15:43 Blood bank studies Yes None Note: Responsible Observer: Prev. Histor y? Previous History? 100.0800 (A) Blood Type See Note None Note: OPO PositiveLResponsible Observer: Blood Type Blood Type 110.0950 (C) Reviewed by Maya Barron MD on 09/11; All test results are final unless otherwise noted. Reported Physicians [facility] Ordered by Maya Barron MD on 09/10/2020 Collected: 09/10/2020 Reported: 09/10/2020 15:43 Reported Physicians See Note None Note: Reported Physicians:Ordering: Les Vanegas: Fady Raza To: Maya Barron Reviewed by Maya Barron MD on 09/11; All test results are final unless otherwise noted. COVID QUEST [facility] Ordered by Maya Barron MD [...] findings,re- testing should be considered in [facility] authorities. Laboratory test results shouldalways be considered in the context of clinicalobservations and epidemiological data in making a finaldiagnosis and patient management decisions.Please review the "Fact Sheets" and FDA authorizedlabeling available for health care providers andpatients using the following websites:https://www.[employer] .[employer]/home/Covid-19/HCP/NAAT/fact-gooat8buqxu://www.[employer]/home/Cov id-19/Patients/NAAT/fact-rknqi9Kpht test has been authorized by the FDA under anEmergency Use Authorization (EUA) for use by authorizedlaboratories.Due to the current public health emergency, [facility] is receiving a high volume of samples [...] information about COVID-19 can be foundat the [facility] website:www.[facility].[employer]/Covid19.THIS TEST WAS PERFORMED AT:[facility] [id number] ONEILLesponsible Observer: COVID-19 COVID-19 ТАТЬЯНА (SARS-CoV-2) [id number] 913.1967 ([facility]) Reviewed by Maya Barron MD on 08/25; All test results are final unless otherwise noted. Reported Physicians [facility] Ordered by Maya Barron MD on 08/23/2020 Collected: 08/23/2020 Reported: 08/25/2020 03:57 Reported Physicians See Note None Note: Reported Physicians:Ordering: Sana Recinosending: Sammie Ann To: Maya Barron Reviewed by Maya Barron MD on 08/25; All test results are final unless otherwise noted. Rapid Strep [facility] Ordered by Maya Barron MD on 08/15/2020 [address] [place], [address] Collected: 08/15/2020 Reported: 08/15/2020 11:47 tel :[phone] strep antigen normal (negative) N (Normal) Reviewed by Maya Barron MD on 08/15; All test results are final unless otherwise noted. Urinalysis w/out microscopy [facility] Ordered by Maya Barron MD on 08/15/2020 [address] [place], [address] Specimen Source: Urine Collected: 08/15/2020 Reporte d: 08/15/2020 11:03 tel:[phone] bilirubin normal (neg) N (Normal) blood normal [...] unless otherwise noted. Extended hours FLU/COV2 NAAT [facility] Ordered by Maya Barron MD on 08/15/2020 Collected: 08/15/2020 Reported: 08/15/2020 15:55 Extended hours FLU/COV2 NAAT See Note None Note: TNPNo Reportable ResultLTNPNo Repo rtable QovwglK0ZVF NOTES See Note None Note: GEORGIANA PICKARD IN OTHER NAME IN MEDICAL RECORD Reviewed by Maya Barron MD on 08/16; All test results are final unless otherwise noted. Reported Physicians [facility] Ordered by Maya Barron MD on 08/15/2020 Collected: 08/15/2020 Reported: 08/15/2020 15:55 Reported Physicians See Note None Note: Reported Physicians:Ordering: Maya AlvarengaAttending: Maya Barron Reviewed by Maya Barron MD on 08/16; All test results are final unless otherwise noted. Sweta Raquel SARS/FLU [facility] Ordered by Maya Barron MD on 08/15/2020 Collected: 08/15/2020 Reported: 08/15/2020 15:55 Sweta Raquel SARS/FLU See Note None Note: Sweta Raquel is a rapid, automated q ualitative anddifferentiation of Influenza type A,B and VHQO-XCF-7TTIE-RT-PCR testNORMAL VALUE IS "NOT DETECTED".Limitations of the sweta raquel Influenza A/B & OPGR-ZCJ-1wtqkk method.Modifications to manufacturers recommendation and proceduresmay alter performance of the test.Negative results do not preclude Influenza A,B or SARS- VKU3hyjqtfzzgk and should not be used as the [...] out diseases caused by other bacterialor viral pathogens.68458-5BHLX-orw CoV RNA Resp Ql ТАТЬЯНА+probeLNNSARS SARS-COV-2 NOT [id number]-ZXX-1 NOT IPXHNYYE91030-8WBBIL RNA Resp Ql ТАТЬЯНА+probeLNNFLUAInfluenza A Not [id number] A Not Unanocgk41347-2YSGJW RNA Resp Ql ТАТЬЯНА+probeLNNINBInfluenza B Not [id number] B Not Detected NOTES See Note None Note: GEORGIANA PICKARD IN OTHER NAME IN MEDICAL RECORD Reviewed by Maya Barron MD on 08/18; All test results are final unless otherwise noted. Throat culture [facility] Ordered by Maya Barron MD on 08/15/2020 Collected: 08/15/2020 Reported: 08/17/2020 06:37 Throat culture results Normal Deisy None Reviewed by Maya Barron MD on 08/18; All test results are final unless otherwise noted. Reported Physicians [facility] Ordered by Maya Barron MD on 08/15/2020 Collected: 08/15/2020 Reported: 08/17/2020 06:37 Reported Physicians See Note None Note: Reported Physicians:Ordering: Maya AlvarengaAttending: Maya Barron Reviewed by Maya Barron MD on 08/18; All test results are final unless otherwise noted. HPVI [facility] Ordered by Cat Gutierrez RPA on 08/09/2020 Collected: 08/09/2020 Reported: 08/15/2020 06:53 Thin Prep Vag See Note None Note: See scanned reportSee scanned repo rtLSee scanned reportResponsible Observer: TP w/HPV if ASC Thinprep w/HPV if ASCUS 805.1454 ([facility]) NOTES See Note None Note: TBI61-57Ihreatvsve Technique: BRUS H-SPATULABody Site: CERVIX Reviewed by Cat Gutierrez RPA on 08/15; All test results are final unless otherwise noted. Reported Physicians [facility] Ordered by Cat Gutierrez RPA on 08/09/2020 Collected: 08/09/2020 Reported: 08/15/2020 06:53 Reported Physicians See Note None Note: Reported Physicians:Ordering: Atte nding: Rigo Gutierrez To: Maya Barron Reviewed by Cat Gutierrez RPA on 08/15; All test results are final unless otherwise noted. GCAMP [facility] Ordered by Cat Gutierrez RPA on 08/09/2020 Collected: 08/09/2020 Reported: 08/11/2020 06:52 C trach rRNA XXX Ql ТАТЬЯНА+probe See Note (NOT DETECTED) None Note: NOT DETECTEDNOT [id number] 6NOT DETECTEDResponsible Observer: C.Trach RNA Chlamydia trachomatis DNA-ТАТЬЯНА [id number] 913.9900 ([facility]) N gonorrhoea rRNA XXX Ql ТАТЬЯНА+probe See Note (NOT DETECTED) None Note: NOT DETECTEDNOT [id number] 6NOT DETECTEDResponsible Observer: GC RNA Neisseria gonorrhoeae DNA -ТАТЬЯНА [id number] 913.9905 ([facility]) Chlamydia/GC DNA Note SEE NOTE None Note: The analytical performance charact eristics of thisassay, when used to test SurePath(TM) specimens have beendetermined by [facility]. The modifications havenot been cleared or approved by the FDA. This assay hasbeen validated pursuant to the CLIA regulations and isused for clinical purposes.For additional information, please refer tohttps://education.[employer]/faq/LFO574(This link is being provided for information/educational purposes only.)THIS TEST WAS PERFORMED AT:[facility] [address]CALUDY ONEILLesponsible Observer: GC/Chlam Note Chlamydia/GC DNA Note [id number] 913.9907 (A) NOTES See Note None Note: PICKARD:IN OTHER NAME IN MEDICAL RECORD Reviewed by Cat Gutierrez RPA on 08/12; All test results are final unless otherwise noted. Reported Physicians [facility] Ordered by Cat Gutierrez RPA on 08/09/2020 Collected: 08/09/2020 Reported: 08/11/2020 06:52 Reported Physicians See Note None Note: Reported Physicians:Ordering: Atte ndcristiane: Rigo Gutierrez To: Maya Barron Reviewed by Cat Gutierrez RPA on 08/12; All test results are final unless otherwise noted. AFFIRM [facility] Ordered by Cat Gutierrez RPA on 08/09/2020 Collected: 08/09/2020 Reported: 08/11/2020 06:52 Dionna species DNA Probe NOT DETECTED (NOT DETECTED) None Note: THIS TEST WAS PERFORMED AT:[facility]-[address] [address]UIUVWJ MERATI,MDResponsible Observer: Dionna DNA Dionna species DNA Probe [id number] 160.3576 ([facility]) Gardnerella DNA Probe DETECTED (NOT DETECTED) H (High) Note: Increased levels of G. vaginalis m ay not be significantin the absence of signs and symptoms of bacterialvaginosis.Responsible Observer: Gardnerella DNA Gardnerella DNA Probe [id number] 278.7473 ([facility]) Trichomonas DNA Probe NOT DETECTED (NOT DETECTED) None Note: Responsible Observer: Trichomonas DNA Trichomonas DNA Probe [id number] 344.5351 ([facility]) NOTES See Note None Note: PICKARD:IN OTHER NAME IN MEDICAL RECORD Reviewed on 08/11/2020; All test result s are final unless otherwise noted. Reported Physicians [facility] Ordered by Cat Gutierrez RPA on 08/09/2020 Collected: 08/09/2020 Reported: 08/11/2020 06:52 Reported Physicians See Note None Note: Reported Physicians:Ordering: Atte nding: Rigo Gutierrez To: Maya Barron Reviewed on 08/11/2020; All test result s are final unless otherwise noted. ADD ON MICROSCOPIC [facility] Ordered by Cat Gutierrez RPA on 08/09/2020 Collected: 08/09/2020 Reported: 08/09/2020 12:23 ADD ON MICROSCOPIC See Note (0-5) H (High) Note: NOTES OTHER/NOT INTERPRETED Bacteria UrnS Ql Micro SMALL AMOUNT Bacteria UrnS Ql Micro SMALL AMOUNT Bacteria UrnS Ql Micro L Bacteria UrnS Ql Micro Bacteria UrnS Ql Micro Bacteria UrnS Ql Micro Bacteria UrnS Ql Micro [id number] Bacteria UrnS Ql Micro Bacteria UrnS Ql [...] Ql Micro Mucous Threads UrnS Ql Micro [id number] Mucous Threads UrnS Ql Micro Mucous Threads UrnS Ql Micro MODERATE AMOUNT WBC # Ur Manual 5-8 @08/09/20 1210: UA W/ MICRO added. RFLXG = UMIC.Method of Collection:: Clean CatchResponsible Observer: WBC WBC 300.5000 (A) Reviewed by Cat Gutierrez RPA on 08/12; All test results are final unless otherwise noted. Reported Physicians [facility] Ordered by Cat Gutierrez [facility] on 08/09/2020 Collected: 08/09/2020 Reported: 08/10/2020 17:47 Reported Physicians See Note None Note: Reported Physicians:Ordering: Atte ndcristiane: Rigo Gutierrez To: Maya Barron Reviewed by Cat Gutierrez [facility] on 08/12; All test results are final unless otherwise noted. MEDMATCH [facility] Ordered by Cat Gutierrez [facility] on 08/09/2020 Collected: 08/09/2020 Reported: 08/13/2020 15:56 MEDMATCH See scanned report None Note: Responsible Observer: MEDMATCH MED MATCH 910.39451 ([facility]) Reviewed by Cat Gutierrez [facility] on 08/14; All test results are final unless otherwise noted. Reported Physicians [facility] Ordered by Cat Gutierrez [facility] on 08/09/2020 Collected: 08/09/2020 Reported: 08/13/2020 15:56 Reported Physicians See Note None Note: Reported Physicians:Ordering: Atte ndcristiane: Rigo Gutierrez To: Maya Barron Reviewed by Cat Gutierrez [facility] on 08/14; All test results are final unless otherwise noted. URINALYSIS [facility] Ordered by Cat Gutierrez [facility] on 08/09/2020 Collected: 08/09/2020 Reported: 08/09/2020 12:23 Urobilinogen Ur Ql See Note (0.2-1 EU/dl) None Note: 1 EU/dl1 EU/[id number] EU/dlRe sponsible Observer: UROBILINOGEN UROBILINOGEN 300.4500 (C) RBC # Ur Strip NEGATIVE (NEGATIVE) None Note: Responsible Observer: BLOOD BLOOD 300.4650 (C) Prot Ur Ql Strip See Note (NEGATIVE) None Note: [id number] ble Observer: PROTEIN PROTEIN 300.3750 (C) Ketones Ur Ql Strip See Note (NEGATIVE) None Note: [id number] ble Observer: KETONE KETONE 300.3900 (C) Bilirub Ur Ql Strip.auto See Note (NEGATIVE) None Note: [id number] EResponsible Observer: BILIRUBIN BILIRUBIN 300.4550 (C) Glucose Ur Strip.auto-mCnc NEGATIVE (NEGATIVE) None Note: Responsible Observer: GLUCOSE GLUC OSE 300.3850 (C) Appearance Ur See Note (CLEAR) None Note: CLEARCLEARLCLEARResponsible Observ er: APPEARANCE APPEARANCE 300.3400 (A) Color Ur See Note None Note: DARK YELLOWDARK YELLOWLDARK YELLOW Responsible Observer: COLOR COLOR 300.3300 (A) Leukocyte esterase Ur Ql Strip See Note (NEGATIVE) None Note: [id number]@DO MICR O!!!!Responsible Observer: LEUKOCYTES LEUKOCYTES 300.3575 (C) Nitrite Ur Ql Strip See Note (NEGATIVE) None Note: [id number] EResponsible Observer: NITRITE NITRITE 300.3650 (B) pH [...] are final unless otherwise noted. Urine culture [facility] Ordered by Cat Gutierrez RPA on 08/09/2020 Collected: 08/09/2020 Reported: 08/10/2020 08:33 Bacteria Ur Cult See Note None Note: NGNo growth.L1NG Reviewed by Cat Gutierrez RPA on 08/14; All test results are final unless otherwise noted. Type and Screen [facility] Ordered by Cat Gutierrez RPA [...] are final unless otherwise noted. Reported Physicians [facility] Ordered by Cat Gutierrez RPA on 08/09/2020 Collected: 08/09/2020 Reported: 08/09/2020 12:39 Reported Physicians See Note None Note: Reported Physicians:Ordering: Cat ConwayAttending: Rigo Gutierrez To: Maya Barron Reviewed by Cat Gutierrez RPA on 08/10; All test results are final unless otherwise noted. Varicella-Zoster IgG Antibody [facility] Ordered by Cat Gutierrez RPA on 08/09/2020 Collected: 08/09/2020 Reported: 08/10/2020 17:47 VZV IgG Ser [facility] 242.10 None Note: Index Interpr etation --------- [...] Antibody Immunity Screen, ACIF.THIS TEST WAS PERFORMED AT:[place] [address]KAMBIZ ME RATI,MDResponsible Observer: VARICELLA IGG Varicella-Zoster IgG Antibody [id number] 499.7712 ([facility]) NOTES See Note None Note: Patient Street Address: [address] [place], [place] [address]Patient City: [facility] [place]: IAPatient Zip Code: [address] Reviewed by Cat Gutierrez RPA on 08/12; All test results are final unless otherwise noted. HCV RFX ТАТЬЯНА [facility] Ordered by Cat Gutierrez RPA on 08/09/2020 Collected: 08/09/2020 Reported: 08/10/2020 17:47 HCV Ab Ser Ql See Note (NON-REACTIVE) None Note: [id number]-[id number] 7NON-REACTIVEResponsible Observer: HEP C ANTIBODY Hepatitis C Antibody [id number] [phone] ([facility]) HCV RNA Qualitative (ТАТЬЯНА) 0.54 (<1.00) None Note: HCV antibody was non-reactive. The re is no laboratoryevidence of HCV infection.In most cases, no further action is required. However,if recent HCV exposure is suspected, a test for HCV RNA(test code 07415) is suggested.For additional information please refer tohttp://education.[employer]/faq/IOC27t6(This link is being provided for informational/educational purposes only.)THIS TEST WAS PERFORMED AT:[facility] [id number] MEANS,MDResponsible Observer: SIG TO C/O SIGNAL TO CUTOFF [id number] [phone] ([facility]) NOTES See Note None Note: Patient Street Address: [address] [place], [place] [address] City: [place]: [place] Zip Code: [address] Reviewed by Cat Gutierrez RPA on 08/12; All test results are final unless otherwise noted. Reported Physicians [facility] Ordered by Cat Gutierrez RPA on 08/09/2020 Collected: 08/09/2020 Reported: 08/10/2020 17:47 Reported Physicians See Note None Note: Reported Physicians:Ordering: Atte nding: Rigo Gutierrez To: Maya Barron Reviewed by Cat Gutierrez RPA on 08/12; All test results are final unless otherwise noted. CBC [facility] Ordered by Cat Gutierrez RPA [...] Auto See Note (0-2) N (Normal) Note: [id number] Ob bus and sys integration senior manager: IG% IG% 100.1375 (B) Hct VFr Bld [...] results are final unless otherwise noted. TSH [facility] Ordered by Cat Gutierrez RPA on 08/09/2020 Collected: 08/09/2020 Reported: 08/09/2020 14:24 TSH SerPl DL<=0.005 mIU/L-aCnc 1.18 MicroInternationalUnitsPerMilliLiter_[Arbitrary_Con (0.35-5. 50) N (Normal) Note: Responsible Observer: TSH TSH 600 .7055 (D) Reviewed by Cat Gutierrez RPA on 08/14; All test results are final unless otherwise noted. Lead (Venous) Wh.Bld [facility] Ordered by Cat Gutierrez RPA on 08/09/2020 Collected: 08/09/2020 Reported: 08/10/2020 17:47 Lead Bld-sCnc <1 (<5) None Note: See Note 1Note 1This test was faith granados and its analytical performancecharacteristics have been determined by [employer]. It has not been cleared or approved by theA. This assay has been validated pursuant to the CLIAregulations and is used for clinical purposes.THIS TEST WAS PERFORMED AT:[facility] [id number] ONEILLesponsible Observer: Lead, WB Lead, Whole Blood [id number] 911.2190 ([facility]) NOTES See Note None Note: Patient Street Address: [address] [place] [address] [address] City: [place] State: [place] Zip Code: [address] Reviewed by Cat Gutierrez RPA on 08/14; All test results are final unless otherwise noted. ncPN REF [facility] Ordered by Cat Gutierrez RPA on 08/09/2020 Collected: 08/09/2020 Reported: 08/13/2020 15:26 T pallidum Ab Ser Ql Aggl See Note (Nonreactive) None Note: [id number] onreactiveResponsible Observer: TP-PA Treponema pallidum Ab (TP-PA) [id number] 908.0286 ([facility]) HIV1 RNA SerPl Ql ТАТЬЯНА+probe See Note None Note: TNPNo Reportable ResultLTNPNo Repo rtable ResultLLEP.LIVENTNPResponsible Observer: HIV 1 RNA, QL T HIV 1 RNA, QL TMA [id number] 908.0254 ([facility]) HBV surface Ag SerPl Ql IA See Note (NON-REACTIVE) None Note: [id number]-[id number] 5NON-REACTIVEResponsible Observer: HBSAG Hepatitis B Surface Antigen [id number] 910.2004 ([facility]) RUBV IgG SerPl IA-aCnc 1.76 None Note: Index Interpretatio n ----- <0.90 Not consistent with immunity 0.90-0.99 Equivocal > or = 1.00 Consistent with immunityThe presence of rubella IgG antibody suggestsimmunization or past or current infection withrubella virus.THIS TEST WAS PERFORMED AT:[facility] [id number] MERATI,MDResponsible Observer: Rubella IgG Ab Rubella IgG Ab [id number] 911.2840 ([facility]) HIV1 Ab SerPlBld Ql IA.rapid See Note None Note: TNPNo Reportable ResultLTNPNo Repo rtable ResultLLEP.LIVENTNPResponsible Observer: HIV 1 AB HIV 1 AB [id number] 908.0250 ([facility]) HBsAg Confirmation See Note None Note: TNPNo Reportable ResultLTNPNo Repo rtable ResultLLEP.LIVENTNPResponsible Observer: HBsAg Confirm HBsAg Confirmation [id number] 910.2006 ([facility]) HIV (1&2) Screen, 4th Gen [...] for this purpose.For additional information please refer tohttp://education.[employer]/faq/GCP201(This link is being provided for informational/educational purposes only.)The performance of this assay has not been clinicallyvalidated in patients less than 2 years old.THIS TEST WAS PERFORMED AT:[facility] [id number] ONEILLesponsible Observer: HIV ABS HIV (1&2) Screen, 4th Gen [id number] 908.0228 ([facility]) Reviewed by Cat Gutierrez RPA on 08/14; All test results are final unless otherwise noted. Reported Physicians [facility] Ordered by Cat Gutierrez RPA on 08/09/2020 Collected: 08/09/2020 Reported: 08/13/2020 15:27 Reported Physicians See Note None Note: Reported Physicians:Ordering: Attchandler barton: Rigo Gutierrez To: Maya Barron Reviewed by Cat Gutierrez RPA on 08/14; All test results are final unless otherwise noted. BHCG, QUANTITATIVE [facility] Ordered by Cat Gutierrez RPA on 08/08/2020 Collected: 08/08/2020 Reported: 08/08/2020 11:53 [facility] [address] MilliInternationalUnitsPerMilliLiter_[Arbitrary_Con (0-10) H (High) Note: @Instrument will [...] are final unless otherwise noted. Reported Physicians [facility] Ordered by aCt Gutierrez RPA on 08/08/2020 Collected: 08/08/2020 Reported: 08/08/2020 11:54 Reported Physicians See Note None Note: Reported Physicians:Ordering: Atte nding: Rigo Gutierrez To: Maya Barron Reviewed by Cat Gutierrez RPA on 08/08; All test results are final unless otherwise noted. Type and Screen [facility] Ordered by Cat Gutierrez RPA [...] are final unless otherwise noted. Reported Physicians [facility] Ordered by Cat Gutierrez RPA on 08/01/2020 Collected: 08/01/2020 Reported: 08/01/2020 06:03 Reported Physicians See Note None Note: Reported Physicians:Ordering: Aj Ferreiraending: Jos Rivas To: Maya Barron Reviewed by Cat Gutierrez RPA on 08/01; All test results are final unless otherwise noted. BHCG, QUANTITATIVE [facility] Ordered by Cat Gutierrez RPA on 08/01/2020 Collected: 08/01/2020 Reported: 08/01/2020 02:26 B-HCG SerPl-aCnc 76281 MilliInternationalUnitsPerMilliLiter_[Arbitrary_Con (0-10) H (High) Note: @Instrument will [...] are final unless otherwise noted. Reported Physicians [facility] Ordered by Cat Gutierrez RPA on 08/01/2020 Collected: 08/01/2020 Reported: 08/01/2020 02:26 Reported Physicians See Note None Note: Reported Physicians:Ordering: Aj Ferreiraending: Jos Rivas To: Maya Barron Reviewed by Cat Gutierrez RPA on 08/01; All test results are final unless otherwise noted. CBC W AUTO DIFF [facility] Ordered by Cat Gutierrez RPA [...] Auto See Note (0-2) N (Normal) Note: [id number] Ob bus and sys integration senior manager: IG% IG% 100.1375 (B) Hct VFr Bld [...] test results are final unless otherwise noted. Lab Ordered by Cat Gutierrez RPA on [...] are final unless otherwise noted. Reported Physicians [facility] Ordered by Cat Gutierrez RPA on 08/01/2020 Collected: 08/01/2020 Reported: 08/01/2020 02:26 Reported Physicians See Note None Note: Reported Physicians:Ordering: Aj Ferreiraending: Jos Rivas To: Maya Barron Reviewed by Cat Gutierrez RPA on 08/01; All test results are final unless otherwise noted. UA W/ CULTURE IF ABNORMAL [facility] Ordered by Cat Gutierrez RPA on 08/01/2020 Collected: 08/01/2020 Reported: 08/01/2020 01:01 Urobilinogen Ur Ql See Note (0.2-1 EU/dl) None Note: 0.2 EU/dl0.2 EU/[id number] E U/dlResponsible Observer: UROBILINOGEN UROBILINOGEN 300.4500 (C) RBC # Ur Strip SMALL (NEGATIVE) None Note: @DO MICRO!!!!Responsible Observer: BLOOD BLOOD 300.4652 (C) Prot Ur Ql Strip See Note (NEGATIVE) None Note: [id number] EResponsible Observer: PROTEIN PROTEIN 300.3750 (C) Ketones Ur Ql Strip See Note (NEGATIVE) None Note: 15 mg/dL15 mg/[id number] mg/d LResponsible Observer: KETONE KETONE 300.3900 (C) Bilirub Ur Ql Strip.auto See Note (NEGATIVE) None Note: [id number] EResponsible Observer: BILIRUBIN BILIRUBIN 300.4550 (C) Glucose Ur Strip.auto-mCnc NEGATIVE (NEGATIVE) None Note: Responsible Observer: GLUCOSE GLUC OSE 300.3850 (C) Appearance Ur See Note (CLEAR) None Note: CLEARCLEARLCLEARResponsible Observ er: APPEARANCE APPEARANCE 300.3400 (A) Color Ur See Note None Note: YELLOWYELLOWLYELLOWResponsible Obs erver: COLOR COLOR 300.3330 (A) Leukocyte esterase Ur Ql Strip See Note (NEGATIVE) None Note: [id number]@DO MICR O!!!!A Culture has been added to this specimen per established criteriaResponsible Observer: LEUKOCYTES LEUKOCYTES 300.3576 (C) Nitrite Ur Ql Strip See Note (NEGATIVE) None Note: [id number] EResponsible Observer: NITRITE NITRITE 300.3652 (B) pH [...] are final unless otherwise noted. Urine culture [facility] Ordered by Cat Gutierrez RPA on 08/01/2020 Collected: 08/01/2020 Reported: 08/02/2020 07:41 Urine culture result See Note None Note: Greater than 100,000 CFU/MLLactoba cilli no senst done NOTES See Note None Note: @08/01/20 0101: Urine culture adde d. RFLXG = CULT.ADD. Reviewed by Cat Gutierrez RPA on 08/02; All test results are final unless otherwise noted. Reported Physicians [facility] Ordered by Cat Gutierrez RPA on 08/01/2020 Collected: 08/01/2020 Reported: 08/02/2020 07:41 Reported Physicians See Note None Note: Reported Physicians:Ordering: Aj Ferreiraending: Jos Rivas To: Maya Barron Reviewed by Cat Gutierrez RPA on 08/02; All test results are final unless otherwise noted. ADD ON MICROSCOPIC [facility] Ordered by Cat Gutierrez RPA on 08/01/2020 Collected: 08/01/2020 Reported: 08/01/2020 01:01 ADD ON MICROSCOPIC See Note (0-5) None Note: NOTES OTHER/NOT INTERPRETED Bacteria UrnS Ql Micro MODERATE AMOUNT Bacteria UrnS Ql Micro MODERATE AMOUNT Bacteria UrnS Ql Micro L Bacteria UrnS Ql Micro Bacteria UrnS Ql Micro Bacteria UrnS Ql Micro Bacteria UrnS Ql Micro [id number] Bacteria UrnS Ql Micro Bacteria UrnS Ql [...] are final unless otherwise noted. Reported Physicians [facility] Ordered by Cat Gutierrez RPA on 08/01/2020 Collected: 08/01/2020 Reported: 08/01/2020 01:01 Reported Physicians See Note None Note: Reported Physicians:Ordering: Aj Ferreiraending: Jos Rivas To: Maya Barron Reviewed by aCt Gutierrez RPA on 08/01; All test results are final unless otherwise noted. BHCG, QUANTITATIVE [facility] Ordered by Cat Gutierrez RPA on 07/31/2020 Collected: 07/31/2020 Reported: 07/31/2020 16:53 B-HCG SerPl-aCnc 27508 MilliInternationalUnitsPerMilliLiter_[Arbitrary_Con (0-10) H (High) Note: @Instrument will [...] are final unless otherwise noted. Reported Physicians [facility] Ordered by Cat Gutierrez RPA on 07/31/2020 Collected: 07/31/2020 Reported: 07/31/2020 16:53 Reported Physicians See Note None Note: Reported Physicians:Ordering: Atte memeing: Cat Gutierrez Reviewed by Cat Gutierrez RPA on 08/01; All test results are final unless otherwise noted. UA W/ CULTURE IF ABNORMAL [facility] Ordered by Cat Gutierrez RPA on 07/27/2020 Collected: 07/27/2020 Reported: 07/27/2020 21:36 Urobilinogen Ur Ql See Note (0.2-1 EU/dl) None Note: 0.2 EU/dl0.2 EU/[id number] E U/dlResponsible Observer: UROBILINOGEN UROBILINOGEN 300.4500 (C) RBC # Ur Strip NEGATIVE (NEGATIVE) None Note: Responsible Observer: BLOOD BLOOD 300.4652 (C) Prot Ur Ql Strip See Note (NEGATIVE) None Note: [id number] EResponsible Observer: PROTEIN PROTEIN 300.3750 (C) Ketones Ur Ql Strip See Note (NEGATIVE) None Note: [id number] EResponsible Observer: KETONE KETONE 300.3900 (C) Bilirub Ur Ql Strip.auto See Note (NEGATIVE) None Note: [id number] EResponsible Observer: BILIRUBIN BILIRUBIN 300.4550 (C) Glucose Ur Strip.auto-mCnc NEGATIVE (NEGATIVE) None Note: Responsible Observer: GLUCOSE GLUC OSE 300.3850 (C) Appearance Ur See Note (CLEAR) None Note: CLEARCLEARLCLEARResponsible Observ er: APPEARANCE APPEARANCE 300.3400 (A) Color Ur See Note None Note: YELLOWYELLOWLYELLOWResponsible Obs erver: COLOR COLOR 300.3330 (A) Leukocyte esterase Ur Ql Strip See Note (NEGATIVE) None Note: [id number]@DO MICR O!!!!A Culture has been added to this specimen per established criteriaResponsible Observer: LEUKOCYTES LEUKOCYTES 300.3576 (C) Nitrite Ur Ql Strip See Note (NEGATIVE) None Note: [id number] EResponsible Observer: NITRITE NITRITE 300.3652 (B) pH [...] are final unless otherwise noted. Urine culture [facility] Ordered by Cat Gutierrez RPA on 07/27/2020 Collected: 07/27/2020 Reported: 07/29/2020 07:36 Urine culture result 50,000 CFU/ML Lactobacilli no senst done None NOTES See Note None Note: @07/27/202136: Urine culture adde d. RFLXG = CULT.ADD. Reviewed by Cat Gutierrez RPA on 07/31; All test results are final unless otherwise noted. Reported Physicians [facility] Ordered by Cat Gutierrez RPA on 07/27/2020 Collected: 07/27/2020 Reported: 07/29/2020 07:37 Reported Physicians See Note None Note: Reported Physicians:Ordering: Carmina BustamanteisalAttending: Carmina GoodisalCopy To: Maya Barron Reviewed by Cat Gutierrez RPA on 07/31; All test results are final unless otherwise noted. ADD ON MICROSCOPIC [facility] Ordered by Cat Gutierrez RPA on 07/27/2020 Collected: 07/27/2020 Reported: 07/27/2020 21:36 ADD ON MICROSCOPIC See Note (0-5) None Note: NOTES OTHER/NOT INTERPRETED Bacteria UrnS Ql Micro SMALL AMOUNT Bacteria UrnS Ql Micro SMALL AMOUNT Bacteria UrnS Ql Micro L Bacteria UrnS Ql Micro Bacteria UrnS Ql Micro Bacteria UrnS Ql Micro Bacteria UrnS Ql Micro [id number] Bacteria UrnS Ql Micro Bacteria UrnS Ql [...] are final unless otherwise noted. Reported Physicians [facility] Ordered by Cat Gutierrez RPA on 07/27/2020 Collected: 07/27/2020 Reported: 07/27/2020 21:37 Reported Physicians See Note None Note: Reported Physicians:Ordering: Carmina BustamanteisalAttending: Daquan GoodCopyifan To: Maya Barron Reviewed by Cat Gutierrez RPA on 07/28; All test results are final unless otherwise noted. BHCG, QUANTITATIVE [facility] Ordered by Cat Gutierrez RPA [...] are final unless otherwise noted. Reported Physicians [facility] Ordered by Cat Gutierrez RPA on 07/27/2020 Collected: 07/27/2020 Reported: 07/27/2020 22:08 Reported Physicians See Note None Note: Reported Physicians:Ordering: Daquan BustamanteAttending: Ariella Good To: Maya Barron Reviewed by Cat Gutierrez RPA on 07/28; All test results are final unless otherwise noted. CMP [facility] Ordered by Cat Gutierrez RPA [...] are final unless otherwise noted. Reported Physicians [facility] Ordered by Cat Gutierrez RPA on 07/27/2020 Collected: 07/27/2020 Reported: 07/27/2020 20:37 Reported Physicians See Note None Note: Reported Physicians:Ordering: Daquan BustamanteAttending: Ariella Good To: Maya Barron Reviewed by Cat Gutierrez RPA on 07/28; All test results are final unless otherwise noted. Type and Screen [facility] Ordered by Cat Gutierrez RPA [...] are final unless otherwise noted. Reported Physicians [facility] Ordered by Cat Gutierrez RPA on 07/27/2020 Collected: 07/27/2020 Reported: 07/27/2020 20:48 Reported Physicians See Note None Note: Reported Physicians:Ordering: Daquan BustamanteAttending: Daquan GoodCopyifan To: Maya Barron Reviewed by Cat Gutierrez RPA on 07/28; All test results are final unless otherwise noted. CBC W AUTO DIFF [facility] Ordered by Cat Gutierrez RPA [...] Auto See Note (0-2) N (Normal) Note: [id number] Ob bus and sys integration senior manager: IG% IG% 100.1375 (B) Hct VFr Bld [...] are final unless otherwise noted. Reported Physicians [facility] Ordered by Cat Gutierrez RPA on 07/27/2020 Collected: 07/27/2020 Reported: 07/27/2020 20:11 Reported Physicians See Note None Note: Reported Physicians:Ordering: Daquan BustamanteAttending: Ariella Good To: Maya Barron Reviewed by Cat Gutierrez RPA on 07/28; All test results are final unless otherwise noted. BHCG, QUANTITATIVE [facility] Ordered by Maya Barron MD on 07/26/2020 Collected: 07/26/2020 Reported: 07/26/2020 16:48 [facility] 4155 MilliInternationalUnitsPerMilliLiter_[Arbitrary_Con (0-10) H (High) Note: @Instrument [...] are final unless otherwise noted. Reported Physicians [facility] Ordered by Maya Barron MD on 07/26/2020 Collected: 07/26/2020 Reported: 07/26/2020 16:48 Reported Physicians See Note None Note: Reported Physicians:Ordering: Maya AlvarengaAttending: Maya Barron Reviewed by Maya Barron MD on 07/27; All test results are final unless otherwise noted. Extended hours FLU/COV2 NAAT [facility] Ordered by Bandar Cleveland PA-C on 07/25/2020 Collected: 07/25/2020 Reported: 07/25/2020 18:47 Extended hours FLU/COV2 NAAT See Note None Note: TNPNo Reportable ResultLTNPNo Repo rtable [id number] Reviewed by Bandar Cleveland PA-C on ; All test results are final unless otherwise noted. Reported Physicians [facility] Ordered by Bandar Cleveland PA-C on 07/25/2020 Collected: 07/25/2020 Reported: 07/25/2020 18:47 Reported Physicians See Note None Note: Reported Physicians:Ordering: Janice Wilsonending: Kami Cleveland To: Health, Public Reviewed by Bandar Cleveland PA-C on ; All test results are final unless otherwise noted. Sweta Raquel SARS/FLU [facility] Ordered by Bandar Cleveland PA-C on 07/25/2020 Collected: 07/25/2020 Reported: 07/25/2020 18:47 Sweta Raquel SARS/FLU See Note None Note: Sweta Raquel is a rapid, automated q ualitative anddifferentiation of Influenza type A,B and SPYR-DSL-2HACK-RT-PCR testNORMAL VALUE IS "NOT DETECTED".Limitations of the sweta raquel Influenza A/B & LQWL-LEV-8nleik method.Modifications to manufacturers recommendation and proceduresmay alter performance of the test.Negative results do not preclude Influenza A,B or SARS- DRT0yhfzopsipa and should not be used as the [...] out diseases caused by other bacterialor viral pathogens.84491-5QMBQ-KwW-7 RNA Resp Ql ТАТЬЯНА+probeLNNOSNo O rganisms [id number] Organisms Detected Reviewed by Bandar Cleveland PA-C on 1; All test results are final unless otherwise noted. Reported Physicians [facility] Ordered by Bandar Cleveland PA-C on 07/25/2020 Collected: 07/25/2020 Reported: 07/25/2020 18:47 Reported Physicians See Note None Note: Reported Physicians:Ordering: Janice Wilsonending: Kami Cleveland To: Health, Public Reviewed by Bandar Cleveland PA-C on 1; All test results are final unless otherwise noted. CBC W AUTO DIFF [facility] Ordered by Maya Barron MD [...] Auto See Note (0-2) N (Normal) Note: 0.30.9E04748435214.3Responsible Ob bus and sys integration senior manager: IG% IG% 100.1375 (B) Hct VFr Bld [...] are final unless otherwise noted. Reported Physicians [facility] Ordered by Maya Barron MD on 07/22/2020 Collected: 07/22/2020 Reported: 07/22/2020 02:00 Reported Physicians See Note None Note: Reported Physicians:Ordering: Dominic Landaverdeending: Alon Douglas To: Maya Barron Reviewed by Maya Barron MD on 07/24; All test results are final unless otherwise noted. Extended hours FLU/COV2 NAAT [facility] Ordered by Maya Barron MD on 07/22/2020 Collected: 07/22/2020 Reported: 07/22/2020 01:29 Extended hours FLU/COV2 NAAT See Note None Note: TNPNo Reportable ResultLTNPNo Repo rtable [id number] Reviewed by Maya Barron MD on 07/24; All test results are final unless otherwise noted. Reported Physicians [facility] Ordered by Maya Barron MD on 07/22/2020 Collected: 07/22/2020 Reported: 07/22/2020 01:29 Reported Physicians See Note None Note: Reported Physicians:Ordering: Mill s, IsaacAttending: Hong DouglasCopyifan To: Maya Barron Reviewed by Maya Barron MD on 07/24; All test results are final unless otherwise noted. Sweta Raquel SARS/FLU [facility] Ordered by Maya Barron MD on 07/22/2020 Collected: 07/22/2020 Reported: 07/22/2020 01:29 Sweta Raquel SARS/FLU See Note None Note: Sweta Raquel is a rapid, automated q ualitative anddifferentiation of Influenza type A,B and WJMH-UEF-0ECDL-RT-PCR testNORMAL VALUE IS "NOT DETECTED".Limitations of the sweta raquel Influenza A/B & TAND-XNE-9fyelm method.Modifications to manufacturers recommendation and proceduresmay alter performance of the test.Negative results do not preclude Influenza A,B or SARS- WTI3jtawdmyiiy and should not be used as the [...] out diseases caused by other bacterialor viral pathogens.10212-6UXNI-CnM-8 RNA Resp Ql ТАТЬЯНА+probeLNNOSNo O rganisms [id number] Organisms Detected Reviewed by Maya Barron MD on 07/24; All test results are final unless otherwise noted. Reported Physicians [facility] Ordered by Maya Barron MD on 07/22/2020 Collected: 07/22/2020 Reported: 07/22/2020 01:29 Reported Physicians See Note None Note: Reported Physicians:Ordering: Latrell boggs IspetronaAttending: Alon Douglas To: Maya Barron Reviewed by Maya Barron MD on 07/24; All test results are final unless otherwise noted. UA W/ CULTURE IF ABNORMAL [facility] Ordered by Maya Barron MD on 07/22/2020 Collected: 07/22/2020 Reported: 07/22/2020 01:10 Urobilinogen Ur Ql See Note (0.2-1 EU/dl) None Note: 0.2 EU/dl0.2 EU/srK43537502227.2 E U/dlResponsible Observer: UROBILINOGEN UROBILINOGEN 300.4500 (C) RBC # Ur Strip NEGATIVE (NEGATIVE) None Note: Responsible Observer: BLOOD BLOOD 300.4652 (C) Prot Ur Ql Strip See Note (NEGATIVE) None Note: [id number] EResponsible Observer: PROTEIN PROTEIN 300.3750 (C) Ketones Ur Ql Strip See Note (NEGATIVE) None Note: [id number] EResponsible Observer: KETONE KETONE 300.3900 (C) Bilirub Ur Ql Strip.auto See Note (NEGATIVE) None Note: [id number] EResponsible Observer: BILIRUBIN BILIRUBIN 300.4550 (C) Glucose Ur Strip.auto-mCnc NEGATIVE (NEGATIVE) None Note: Responsible Observer: GLUCOSE GLUC OSE 300.3850 (C) Appearance Ur See Note (CLEAR) None Note: CLEARCLEARLCLEARResponsible Observ er: APPEARANCE APPEARANCE 300.3400 (A) Color Ur See Note None Note: YELLOWYELLOWLYELLOWResponsible Obs erver: COLOR COLOR 300.3330 (A) Leukocyte esterase Ur Ql Strip See Note (NEGATIVE) None Note: [id number] EResponsible Observer: LEUKOCYTES LEUKOCYTES 300.3576 (C) Nitrite Ur Ql Strip See Note (NEGATIVE) None Note: [id number] EResponsible Observer: NITRITE NITRITE 300.3652 (B) pH [...] are final unless otherwise noted. Reported Physicians [facility] Ordered by Maya Barron MD on 07/22/2020 Collected: 07/22/2020 Reported: 07/22/2020 01:11 Reported Physicians See Note None Note: Reported Physicians:Ordering: Hong LandaverdeAttending: Alon Douglas To: Maya Barron Reviewed by Maya Barron MD on 07/24; All test results are final unless otherwise noted. Urine culture [facility] Ordered by Maya Barron MD on 07/19/2020 Collected: 07/19/2020 Reported: 07/21/2020 07:48 Bacteria Ur Cult See Note None Note: NGNo growth.L1NG Reviewed by Maya Barron MD on 07/21; All test results are final unless otherwise noted. Reported Physicians [facility] Ordered by Maya Barron MD on 07/19/2020 Collected: 07/19/2020 Reported: 07/21/2020 07:49 Reported Physicians See Note None Note: Reported Physicians:Ordering: Maya AlvarengaAttending: Maya Barron Reviewed by Maya aBrron MD on 07/21; All test results are final unless otherwise noted. BHCG, QUANTITATIVE [facility] Ordered by Maya Barron MD [...] are final unless otherwise noted. Reported Physicians [facility] Ordered by Maya Barron MD on 07/17/2020 Collected: 07/17/2020 Reported: 07/17/2020 12:40 Reported Physicians See Note None Note: Reported Physicians:Ordering: Maya AlvarengaAttending: Maya Barron Reviewed by Maya Barron MD on 07/17; All test results are final unless otherwise noted. [employer] COVID-19 [employer]OL [facility] Ordered by Maya Barron MD [...] molecular test, if the virus mutates in [facility] region, Covid-19 may not be detected or may bedetected less predictably.ID NOW COVID-19 is intended for testing a swab directlywithout elution in viral transport media as dilution willresult in decreased detection of low positive samples thatare near the limit of detection of the test.SWAB SAMPLES ELUTED IN VTM ARE NOT APPROPRIATE FOR USE INTHIS TEST.NOSNo Organisms [id number] Organisms Detected Reviewed by Maya Barron MD on 05/31; All test results are final unless otherwise noted. Reported Physicians [facility] Ordered by Maya Barron MD on 05/31/2020 Collected: 05/31/2020 Reported: 05/31/2020 07:08 Reported Physicians See Note None Note: Reported Physicians:Ordering: Johnny HernándezAttending: Suzanne Cazares To: Maya Barron Reviewed by Maya Barron MD on 05/31; All test results are final unless otherwise noted. BHCG, QUANTITATIVE [facility] Ordered by Maya Barron MD on 05/26/2020 Collected: 05/26/2020 Reported: 05/26/2020 14:49 [facility] [address] MilliInternationalUnitsPerMilliLiter_[Arbitrary_Con (0-10) H (High) Note: @Instrument will [...] are final unless otherwise noted. Reported Physicians [facility] Ordered by Maya Barron MD on 05/26/2020 Collected: 05/26/2020 Reported: 05/26/2020 14:50 Reported Physicians See Note None Note: Reported Physicians:Ordering: Maya AlvarengaAttending: Maya Barron Reviewed by Maya Barron MD on 05/26; All test results are final unless otherwise noted. URINALYSIS [facility] Ordered by Maya Barron MD on 05/23/2020 Collected: 05/23/2020 Reported: 05/23/2020 17:19 Urobilinogen Ur Ql See Note (0.2-1 EU/dl) None Note: 0.2 EU/dl0.2 EU/[id number] E U/dlResponsible Observer: UROBILINOGEN UROBILINOGEN 300.4500 (C) RBC # Ur Strip NEGATIVE (NEGATIVE) None Note: Responsible Observer: BLOOD BLOOD 300.4650 (C) Prot Ur Ql Strip See Note (NEGATIVE) None Note: [id number] EResponsible Observer: PROTEIN PROTEIN 300.3750 (C) Ketones Ur Ql Strip See Note (NEGATIVE) None Note: [id number] EResponsible Observer: KETONE KETONE 300.3900 (C) Bilirub Ur Ql Strip.auto See Note (NEGATIVE) None Note: [id number] EResponsible Observer: BILIRUBIN BILIRUBIN 300.4550 (C) Glucose Ur Strip.auto-mCnc NEGATIVE (NEGATIVE) None Note: Responsible Observer: GLUCOSE GLUC OSE 300.3850 (C) Appearance Ur See Note (CLEAR) None Note: CLEARCLEARLCLEARResponsible Observ er: APPEARANCE APPEARANCE 300.3400 (A) Color Ur See Note None Note: YELLOWYELLOWLYELLOWResponsible Obs erver: COLOR COLOR 300.3300 (A) Leukocyte esterase Ur Ql Strip See Note (NEGATIVE) None Note: [id number] EResponsible Observer: LEUKOCYTES LEUKOCYTES 300.3575 (C) Nitrite Ur Ql Strip See Note (NEGATIVE) None Note: [id number] EResponsible Observer: NITRITE NITRITE 300.3650 (B) pH [...] are final unless otherwise noted. Urine culture [facility] Ordered by Maya Barron MD on 05/23/2020 Collected: 05/23/2020 Reported: 05/24/2020 09:24 Bacteria Ur Cult See Note None Note: NGNo growth.L1NG Reviewed by Maya Barron MD on 05/29; All test results are final unless otherwise noted. MEDMATCH [facility] Ordered by Maya Barron MD on 05/23/2020 Collected: 05/23/2020 Reported: 05/26/2020 17:09 MEDMATCH 1.000 (> or = 1.003) None Note: Responsible Observer: MEDMATCH MED MATCH 910.88995 ([facility]) Reviewed by Maya Barron MD on 05/29; All test results are final unless otherwise noted. Reported Physicians [facility] Ordered by Maya Barron MD on 05/23/2020 Collected: 05/23/2020 Reported: 05/26/2020 17:09 Reported Physicians See Note None Note: Reported Physicians:Ordering: Maya AlvarengaAttending: Maya Barron Reviewed by Maya Barron MD on 05/29; All test results are final unless otherwise noted. Varicella-Zoster IgG Antibody [facility] Ordered by Maya Barron MD [...] Antibody Immunity Screen, ACIF.THIS TEST WAS PERFORMED AT:[facility] [id number] [place] RATI,MDResponsible Observer: VARICELLA IGG Varicella-Zoster IgG Antibody [id number] 770.3521 ([facility]) NOTES See Note None Note: Patient Street Address: [facility] [address] City: [place]: [address] Reviewed by Maya Barron MD on 05/26; All test results are final unless otherwise noted. Reported Physicians [facility] Ordered by Maya Barron MD on 05/23/2020 Collected: 05/23/2020 Reported: 05/25/2020 17:11 Reported Physicians See Note None Note: Reported Physicians:Ordering: Maya AlvarengaAttending: Maya Barron Reviewed by Maya Barron MD on 05/26; All test results are final unless otherwise noted. CBC [facility] Ordered by Maya Barron MD [...] Auto See Note (0-2) N (Normal) Note: [id number] Ob bus and sys integration senior manager: IG% IG% 100.1375 (B) Hct VFr Bld [...] results are final unless otherwise noted. TSH [facility] Ordered by Maya Barron MD on 05/23/2020 Collected: 05/23/2020 Reported: 05/23/2020 18:38 TSH SerPl DL<=0.005 mIU/L-aCnc 1.87 MicroInternationalUnitsPerMilliLiter_[Arbitrary_Con (0.35-5. 50) N (Normal) Note: Responsible Observer: TSH TSH 600 .7055 (D) Reviewed by Maya Barron MD on 05/29; All test results are final unless otherwise noted. Lead (Venous) Wh.Bld [facility] Ordered by Maya Barron MD on 05/23/2020 Collected: 05/23/2020 Reported: 05/25/2020 17:11 Lead Bld-sCnc <1 (<5) None Note: See Note 1Note 1This test was [facility] [employer] and its analytical performancecharacteristics have been determined by [employer]. It has not been cleared or approved by theA. This assay has been validated pursuant to the CLIAregulations and is used for clinical purposes.THIS TEST WAS PERFORMED AT:[facility] [address]XFXLNDCLAUDY ONEILLesponsible Observer: Lead, WB Lead, Whole Blood [id number] 911.2274 ([facility]) NOTES See Note None Note: Patient Street Address: [address] City: [place]: [place] Code: [address] Reviewed by Maya Barron MD on 05/29; All test results are final unless otherwise noted. ncPN REF [facility] Ordered by Maya Barron MD on 05/23/2020 Collected: 05/23/2020 Reported: 05/27/2020 20:54 T pallidum Ab Ser Ql Aggl See Note (Nonreactive) None Note: [id number] onreactiveResponsible Observer: TP-PA Treponema pallidum Ab (TP-PA) [id number] 908.0286 ([facility]) HIV1 RNA SerPl Ql ТАТЬЯНА+probe See Note None Note: TNPNo Reportable ResultLTNPNo Repo rtable ResultLLEP.LIVENTNPResponsible Observer: HIV 1 RNA, QL T HIV 1 RNA, QL TMA [id number] 908.0254 ([facility]) HBV surface Ag SerPl Ql IA See Note (NON-REACTIVE) None Note: [id number] 0NON-REACTIVEResponsible Observer: HBSAG Hepatitis B Surface Antigen 56103360 910.2004 ([facility]) RUBV IgG SerPl IA-aCnc 1.80 None Note: Index Interpretatio n ----- <0.90 Not consistent with Immunity 0.90-0.99 Equivocal > or = 1.00 Consistent with ImmunityThe presence of rubella IgG antibody suggestsimmunization or past or current infection withrubella virus.THIS TEST WAS PERFORMED AT:[facility] [address]FBBBQT MERATI,MDResponsible Observer: Rubella IgG Ab Rubella IgG Ab [id number] 911.2840 ([facility]) HIV1 Ab SerPlBld Ql IA.rapid See Note None Note: TNPNo Reportable ResultLTNPNo Repo rtable ResultLLEP.LIVENTNPResponsible Observer: HIV 1 AB HIV 1 AB [id number] 908.0250 ([facility]) HBsAg Confirmation See Note None Note: TNPNo Reportable ResultLTNPNo Repo rtable ResultLLEP.LIVENTNPResponsible Observer: HBsAg Confirm HBsAg Confirmation [id number] 910.2006 ([facility]) HIV (1&2) Screen, 4th Gen [...] for this purpose.For additional information please refer tohttp://dbTwang.[employer]/faq/WEJ991(This link is being provided for informational/educational purposes only.)The performance of this assay has not been clinicallyvalidated in patients less than 2 years old.Responsible Observer: HIV ABS HIV (1&2) Screen, 4th Gen [id number] 908.7885 ([facility]) Reviewed by Maya Barron MD on 05/29; All test results are final unless otherwise noted. Reported Physicians [facility] Ordered by Maya Barron MD on 05/23/2020 Collected: 05/23/2020 Reported: 05/27/2020 20:54 Reported Physicians See Note None Note: Reported Physicians:Ordering: Maya AlvarengaAttending: Maya Barron Reviewed by Maya Barron MD on 05/29; All test results are final unless otherwise noted. HCV RFX ТАТЬЯНА [facility] Ordered by Maya Barron MD on 05/23/2020 Collected: 05/23/2020 Reported: 05/25/2020 17:11 HCV Ab Ser Ql See Note (NON-REACTIVE) None Note: [id number] 7NON-REACTIVEResponsible Observer: HEP C ANTIBODY Hepatitis C Antibody [id number] 914.8305 ([facility]) HCV RNA Qualitative (ТАТЬЯНА) 0.59 (<1.00) None Note: HCV antibody was non-reactive. The re is no laboratoryevidence of HCV infection.In most cases, no further action is required. However,if recent HCV exposure is suspected, a test for HCV RNA(test code 26128) is suggested.For additional information please refer tohttp://dbTwang.[employer]/faq/TLH11t6(This link is being provided for informational/educational purposes only.)THIS TEST WAS PERFORMED AT:[facility] [place] [address] [place] [address]OSEAS MEANSMDResponsible Observer: SIG TO C/O SIGNAL TO CUTOFF [id number] 588.2574 ([facility]) NOTES See Note None Note: Patient Street Address: [address] City: [facility] State: [facility] Zip Code: [address] Reviewed by Maya Barron MD on 05/26; All test results are final unless otherwise noted. Reported Physicians [facility] Ordered by Maya Barron MD on 05/23/2020 Collected: 05/23/2020 Reported: 05/25/2020 17:11 Reported Physicians See Note None Note: Reported Physicians:Ordering: Maya AlvarengaAttending: Maya Barron Reviewed by Maya Barron MD on 05/26; All test results are final unless otherwise noted. Type and Screen [facility] Ordered by Maya Barron MD [...] are final unless otherwise noted. Reported Physicians [facility] Ordered by Maya Barron MD on 05/23/2020 Collected: 05/23/2020 Reported: 05/23/2020 19:32 Reported Physicians See Note None Note: Reported Physicians:Ordering: aMya AlvarengaAttending: Maya Barron Reviewed by Maya Barron MD on 05/24; All test results are final unless otherwise noted. PROGESTERONE [facility] Ordered by Maya Barron MD [...] are final unless otherwise noted. Reported Physicians [facility] Ordered by Maya Barron MD on 04/27/2020 Collected: 04/27/2020 Reported: 04/27/2020 15:58 Reported Physicians See Note None Note: Reported Physicians:Ordering: Johnny HernándezAttending: Jos Castellanos To: Rubén Barron To: Cristino Castellanos Reviewed by Maya Barron MD on 04/30; All test results are final unless otherwise noted. BHCG, QUANTITATIVE [facility] Ordered by Maya Barron MD on 04/27/2020 Collected: 04/27/2020 Reported: 04/27/2020 14:40 B-HCG [facility] 235[address] MilliInternationalUnitsPerMilliLiter_[Arbitrary_Con (0-10) H (High) Note: @Instrument [...] are final unless otherwise noted. Reported Physicians [facility] Ordered by Maya Barron MD on 04/27/2020 Collected: 04/27/2020 Reported: 04/27/2020 14:40 Reported Physicians See Note None Note: Reported Physicians:Ordering: Cristino SnowAttending: Cristino CastellanosCopy To: Johnny CazaresCopyifan To: Maya Barron Reviewed by Maya Barron MD on 04/30; All test results are final unless otherwise noted. CBC W AUTO DIFF [facility] Ordered by Maya Barron MD [...] Auto See Note (0-2) N (Normal) Note: [id number] Ob bus and sys integration senior manager: IG% IG% 100.1375 (B) Hct VFr Bld [...] test results are final unless otherwise noted. Lab Ordered by Maya Barron MD on [...] are final unless otherwise noted. Reported Physicians [facility] Ordered by Maya Barron MD on 04/25/2020 Collected: 04/25/2020 Reported: 04/25/2020 22:11 Reported Physicians See Note None Note: Reported Physicians:Ordering: Cristino FerreiraAttending: Jos Rivas To: Maya Barron Reviewed by Maya Barron MD on 04/26; All test results are final unless otherwise noted. BHCG, QUANTITATIVE [facility] Ordered by Maya Barron MD on 04/25/2020 Collected: 04/25/2020 Reported: 04/25/2020 22:11 B-HCG SerPl-aCn 1758 MilliInternationalUnitsPerMilliLiter_[Arbitrary_Con (0-10) H (High) Note: @Instrument [...] are final unless otherwise noted. Reported Physicians [facility] Ordered by Maya Barron MD on 04/25/2020 Collected: 04/25/2020 Reported: 04/25/2020 22:11 Reported Physicians See Note None Note: Reported Physicians:Ordering: Aj Ferreiraending: Jos Rivas To: Maya Barron Reviewed by aMya Barron MD on 04/26; All test results are final unless otherwise noted. Urine culture [facility] Ordered by Maya Barron MD on 04/25/2020 Collected: 04/25/2020 Reported: 04/27/2020 04:50 Bacteria Ur Cult See Note None Note: NGNo growth.L1NG NOTES See Note None Note: @ NICOLE DATE was changed from 04/26 to 04/25/20@ by LEONARDO. Reviewed by Maya Barron MD on 04/30; All test results are final unless otherwise noted. Reported Physicians [facility] Ordered by Maya Barron MD on 04/25/2020 Collected: 04/25/2020 Reported: 04/27/2020 04:51 Reported Physicians See Note None Note: Reported Physicians:Ordering: Aj Ferreiraending: Jos Rivas To: Maya Barron Reviewed by Maya Barron MD on 04/30; All test results are final unless otherwise noted. ADD ON MICROSCOPIC [facility] Ordered by Maya Barron MD on 04/25/2020 Collected: 04/25/2020 Reported: 04/25/2020 21:54 ADD ON MICROSCOPIC See Note (0-5) None Note: NOTES OTHER/NOT INTERPRETED Bacteria UrnS Ql Micro SMALL AMOUNT Bacteria UrnS Ql Micro SMALL AMOUNT Bacteria UrnS Ql Micro L Bacteria UrnS Ql Micro Bacteria UrnS Ql Micro Bacteria UrnS Ql Micro Bacteria UrnS Ql Micro [id number] Bacteria UrnS Ql Micro Bacteria UrnS Ql [...] are final unless otherwise noted. Reported Physicians [facility] Ordered by Maya Barron MD on 04/25/2020 Collected: 04/25/2020 Reported: 04/25/2020 21:54 Reported Physicians See Note None Note: Reported Physicians:Ordering: Aj Ferreiraending: Jos Rivas To: Maya Barron Reviewed by Maya Barron MD on 04/26; All test results are final unless otherwise noted. URINALYSIS [facility] Ordered by Maya Barron MD on 04/25/2020 Collected: 04/25/2020 Reported: 04/25/2020 21:54 Urobilinogen Ur Ql See Note (0.2-1 EU/dl) None Note: 0.2 EU/dl0.2 EU/[id number] E U/dlResponsible Observer: UROBILINOGEN UROBILINOGEN 300.4500 (C) RBC # Ur Strip NEGATIVE (NEGATIVE) None Note: Responsible Observer: BLOOD BLOOD 300.4650 (C) Prot Ur Ql Strip See Note (NEGATIVE) None Note: [id number] EResponsible Observer: PROTEIN PROTEIN 300.3750 (C) Ketones Ur Ql Strip See Note (NEGATIVE) None Note: [id number] EResponsible Observer: KETONE KETONE 300.3900 (C) Bilirub Ur Ql Strip.auto See Note (NEGATIVE) None Note: [id number] EResponsible Observer: BILIRUBIN BILIRUBIN 300.4550 (C) Glucose Ur Strip.auto-mCnc NEGATIVE (NEGATIVE) None Note: Responsible Observer: GLUCOSE GLUC OSE 300.3850 (C) Appearance Ur See Note (CLEAR) None Note: CLEARCLEARLCLEARResponsible Observ er: APPEARANCE APPEARANCE 300.3400 (A) Color Ur See Note None Note: YELLOWYELLOWLYELLOWResponsible Obs erver: COLOR COLOR 300.3300 (A) Leukocyte esterase Ur Ql Strip See Note (NEGATIVE) None Note: [id number]@DO MICR O!!!!Responsible Observer: LEUKOCYTES LEUKOCYTES 300.3575 (C) Nitrite Ur Ql Strip See Note (NEGATIVE) None Note: [id number] EResponsible Observer: NITRITE NITRITE 300.3650 (B) pH [...] are final unless otherwise noted. Reported Physicians [facility] Ordered by Maya Barron MD on 04/25/2020 Collected: 04/25/2020 Reported: 04/25/2020 21:54 Reported Physicians See Note None Note: Reported Physicians:Ordering: Aj Ferreiraending: Jos Rivas To: Maya Barron Reviewed by Maya Barron MD on 04/26; All test results are final unless otherwise noted. BHCG, QUANTITATIVE [facility] Ordered by Maya Barron MD [...] are final unless otherwise noted. Reported Physicians [facility] Ordered by Maya Barron MD on 04/18/2020 Collected: 04/18/2020 Reported: 04/18/2020 15:11 Reported Physicians See Note None Note: Reported Physicians:Ordering: Maya AlvarengaAttending: Maya Barron Reviewed by Maya Barron MD on 04/19; All test results are final unless otherwise noted. ADD ON MICROSCOPIC [facility] Ordered by Maya Barron MD on 04/16/2020 Collected: 04/16/2020 Reported: 04/16/2020 23:51 ADD ON MICROSCOPIC See Note (0-5) None Note: NOTES OTHER/NOT INTERPRETED Bacteria UrnS Ql Micro SMALL AMOUNT Bacteria UrnS Ql Micro SMALL AMOUNT Bacteria UrnS Ql Micro L Bacteria UrnS Ql Micro Bacteria UrnS Ql Micro Bacteria UrnS Ql Micro Bacteria UrnS Ql Micro [id number] Bacteria UrnS Ql Micro Bacteria UrnS Ql [...] are final unless otherwise noted. Reported Physicians [facility] Ordered by Maya Barron MD on 04/16/2020 Collected: 04/16/2020 Reported: 04/16/2020 23:52 Reported Physicians See Note None Note: Reported Physicians:Ordering: Damon , VinodAttending: Damon, VinodCopy To: Maya Barron Reviewed by Maya Barron MD on 04/17; All test results are final unless otherwise noted. UA W/ CULTURE IF ABNORMAL [facility] Ordered by Maya Barron MD on 04/16/2020 Collected: 04/16/2020 Reported: 04/16/2020 23:51 Urobilinogen Ur Ql See Note (0.2-1 EU/dl) None Note: 0.2 EU/dl0.2 EU/edY30024124612.2 E U/dlResponsible Observer: UROBILINOGEN UROBILINOGEN 300.4500 (C) RBC # Ur Strip NEGATIVE (NEGATIVE) None Note: Responsible Observer: BLOOD BLOOD 300.4652 (C) Prot Ur Ql Strip See Note (NEGATIVE) None Note: [id number] EResponsible Observer: PROTEIN PROTEIN 300.3750 (C) Ketones Ur Ql Strip See Note (NEGATIVE) None Note: [id number] ble Observer: KETONE KETONE 300.3900 (C) Bilirub Ur Ql Strip.auto See Note (NEGATIVE) None Note: [id number] EResponsible Observer: BILIRUBIN BILIRUBIN 300.4550 (C) Glucose Ur Strip.auto-mCnc NEGATIVE (NEGATIVE) None Note: Responsible Observer: GLUCOSE GLUC OSE 300.3850 (C) Appearance Ur See Note (CLEAR) None Note: CLEARCLEARLCLEARResponsible Observ er: APPEARANCE APPEARANCE 300.3400 (A) Color Ur See Note None Note: YELLOWYELLOWLYELLOWResponsible Obs erver: COLOR COLOR 300.3330 (A) Leukocyte esterase Ur Ql Strip See Note (NEGATIVE) None Note: [id number] E@DO MICRO!!!!A Culture has been added to this specimen per established criteriaResponsible Observer: LEUKOCYTES LEUKOCYTES 300.3576 (C) Nitrite Ur Ql Strip See Note (NEGATIVE) None Note: [id number] EResponsible Observer: NITRITE NITRITE 300.3652 (B) pH [...] are final unless otherwise noted. Urine culture [facility] Ordered by Maya Barron MD on 04/16/2020 Collected: 04/16/2020 Reported: 04/18/2020 06:47 Urine culture result See Note None Note: Less than 10,000 CFU/MLNormal Comm ensal FloraProbable contaminants no senst done NOTES See Note None Note: @04/16/20 2351: Urine culture adde d. RFLXG = CULT.ADD. Reviewed by Maya Barron MD on 04/18; All test results are final unless otherwise noted. Reported Physicians [facility] Ordered by Maya Barron MD on 04/16/2020 Collected: 04/16/2020 Reported: 04/18/2020 06:47 Reported Physicians See Note None Note: Reported Physicians:Ordering: Randy Joseending: Jose E JoseodCopy To: Maya Barron Reviewed by Maya Barron MD on 04/18; All test results are final unless otherwise noted. CBC W AUTO DIFF [facility] Ordered by Maya Barron MD [...] Auto See Note (0-2) N (Normal) Note: [id number] Ob bus and sys integration senior manager: IG% IG% 100.1375 (B) Hct VFr Bld [...] are final unless otherwise noted. BHCG, QUANTITATIVE [facility] Ordered by Maya Barron MD [...] are final unless otherwise noted. Reported Physicians [facility] Ordered by Maya Barron MD on 04/16/2020 Collected: 04/16/2020 Reported: 04/16/2020 22:47 Reported Physicians See Note None Note: Reported Physicians:Ordering: Damon , VinodAttending: Jose E JoseodCopy To: Maya Barron Reviewed by Maya Barron MD on 04/17; All test results are final unless otherwise noted. CMP [facility] Ordered by Maya Barron MD [...] are final unless otherwise noted. Reported Physicians [facility] Ordered by Maya Barron MD on 04/16/2020 Collected: 04/16/2020 Reported: 04/16/2020 22:44 Reported Physicians See Note None Note: Reported Physicians:Ordering: Randy Joseending: Jose E JoseodCopy To: Maya Barron Reviewed by Maya Barron MD on 04/17; All test results are final unless otherwise noted. LIPASE [facility] Ordered by Maya Barron MD on 04/16/2020 Collected: 04/16/2020 Reported: 04/16/2020 22:44 Lipase SerPl-cCnc 107 enzyme_unit_per_liter (73-393) N (Normal) Note: Responsible Observer: Lipase Lipas e 400.2310 (G) Reviewed by Maya Barron MD on 04/17; All test results are final unless otherwise noted. Reported Physicians [facility] Ordered by Maya Barron MD on 04/16/2020 Collected: 04/16/2020 Reported: 04/16/2020 22:44 Reported Physicians See Note None Note: Reported Physicians:Ordering: Damon , VinodAttending: Jose E JoseodCopy To: Maya Barron Reviewed by Maya Barron MD on 04/17; All test results are final unless otherwise noted. Type and Screen [facility] Ordered by Maya Barron MD [...] are final unless otherwise noted. Reported Physicians [facility] Ordered by Maya Barron MD on 04/16/2020 Collected: 04/16/2020 Reported: 04/16/2020 23:09 Reported Physicians See Note None Note: Reported Physicians:Ordering: Romel Josettending: Alix Jose To: Maya Barron Reviewed by Maya Barron MD on 04/17; All test results are final unless otherwise noted. CBC [facility] Ordered by Maya Barron MD on 04/10/2020 [address] [place], [address] Collected: 04/10/2020 Reported: 04/11/2020 11:35 tel : [...] test results are final unless otherwise noted. [facility] Ordered by Maya Barron MD on 04/10/[address] [place] [address], [facility] Collected: 04/10/2020 Reported: 04/11/2020 11:35 [...] Ordered by Maya Barron MD on 04/10/[address] [place] [address], [phone] Collected: 04/10/2020 Reported: 04/11/2020 11:35 tel :[phone] ext. 1500 TSH 1.336 uIu/mL (0.5-5.8) None Note: Responsible Observer: AW Reviewed by Maya Barron MD on 04/12; All test results are final unless otherwise noted. -[facility] Ordered by Maya Barron MD on 02/25/2020 Collected: 02/25/2020 Reported: 02/28/2020 15:53 C trach rRNA XXX Ql ТАТЬЯНА+probe See Note (NOT DETECTED) None Note: NOT DETECTEDNOT DETECTEDLNOT DETEC TEDNOT [id number] DETECTEDResponsible Observer: C.Trach RNA Chlamydia trachomatis DNA-ТАТЬЯНА [id number] 913.9900 ([facility]) N gonorrhoea rRNA XXX Ql ТАТЬЯНА+probe See Note (NOT DETECTED) None Note: NOT DETECTEDNOT DETECTEDLNOT DETEC TEDNOT [id number] DETECTEDResponsible Observer: GC RNA Neisseria gonorrhoeae DNA -ТАТЬЯНА [id number] 913.9905 ([facility]) Chlamydia/GC DNA Note SEE NOTE None Note: The analytical performance charact eristics of thisassay, when used to test SurePath(TM) specimens have beendetermined by [facility]. The modifications havenot been cleared or approved by the FDA. This assay hasbeen validated pursuant to the CLIA regulations and isused for clinical purposes.For additional information, please refer tohttps://education.[employer]/faq/AQN462(This link is being provided for information/educational purposes only.)THIS TEST WAS PERFORMED AT:[facility] [place] [id number] BURGESSesponsible Observer: GC/Chlam Note Chlamydia/GC DNA Note [id number] 913.9907 (A) NOTES See Note None Note: Source Of Specimen: URINE Reviewed by Maya Barron MD on 02/28; All test results are final unless otherwise noted. Reported Physicians [facility] Ordered by Myaa Barron MD on 02/25/2020 Collected: 02/25/2020 Reported: 02/28/2020 15:54 Reported Physicians See Note None Note: Reported Physicians:Ordering: Cara Alvarengaending: Maya Barron Reviewed by Maya Barron MD on 02/28; All test results are final unless otherwise noted. Urine culture-[facility] Ordered by Maya Barron MD on 02/25/2020 Collected: 02/25/2020 Reported: 02/26/2020 13:38 Urine culture result No growth None Reviewed by Maya Barron MD on 02/27; All test results are final unless otherwise noted. Reported Physicians [facility] Ordered by Maya Barron MD on 02/25/2020 Collected: 02/25/2020 Reported: 02/26/2020 13:39 Reported Physicians See Note None Note: Reported Physicians:Ordering: Cara Alvarengaending: Maya Barron Reviewed by Maya Barron MD on 02/27; All test results are final unless otherwise noted. Test Office Lab Ordered by Maya Barron MD on 02/25/2020 [facility] [place], [address] Specimen Source: Urine Collected: 02/25/2020 Reporte d: 02/25/2020 11:15 tel:[phone] Urine HCG neg (negative) N (Normal) Reviewed by Maya Barron MD on 02/24; All test results are final unless otherwise noted. Urinalysis w/out microscopy Office Lab Ordered by Maya Barron MD on 02/25/2020 [facility] [place], [address] Specimen Source: Urine Collected: 02/25/2020 Reporte d: 02/25/2020 11:02 tel:[phone] bilirubin neg (neg) N (Normal) blood neg [...] otherwise noted. UA W/ CULTURE IF ABNORMAL [facility] Ordered by Maya Barron MD on 01/29/2020 Collected: 01/29/2020 Reported: 01/29/2020 00:22 Urobilinogen Ur Ql See Note (0.2-1 EU/dl) None Note: 1 EU/dl1 EU/dlL1 EU/dl1 EU/hwY4478 [id number] EU/dlResponsible Observer: UROBILINOGEN UROBILINOGEN 300.4500 (C) RBC # Ur Strip NEGATIVE (NEGATIVE) None Note: Responsible Observer: BLOOD BLOOD 300.4652 (C) Prot Ur Ql Strip See Note (NEGATIVE) None Note: NEGATIVENEGATIVELNEGATIVENEGATIVEL [id number] Observer: PROTEIN PROTEIN 300.3750 (C) Ketones Ur Ql Strip See Note (NEGATIVE) None Note: 15 mg/dL15 mg/dLL15 mg/dL15 mg/dLL [id number] mg/dLResponsible Observer: KETONE KETONE 300.3900 (C) Bilirub Ur Ql Strip.auto See Note (NEGATIVE) None Note: NEGATIVENEGATIVELNEGATIVENEGATIVEL [id number] Observer: BILIRUBIN BILIRUBIN 300.4550 (C) Glucose Ur Strip.auto-mCnc NEGATIVE (NEGATIVE) None Note: Responsible Observer: GLUCOSE GLUC OSE 300.3850 (C) Appearance Ur See Note (CLEAR) None Note: CLEARCLEARLCLEARCLEARLCLEARRespons ible Observer: APPEARANCE APPEARANCE 300.3400 (A) Color Ur See Note None Note: YELLOWYELLOWLYELLOWYELLOWLYELLOWRe sponsible Observer: COLOR COLOR 300.3330 (A) Leukocyte esterase Ur Ql Strip See Note (NEGATIVE) None Note: NEGATIVENEGATIVELNEGATIVENEGATIVEL [id number] Observer: LEUKOCYTES LEUKOCYTES 300.3576 (C) Nitrite Ur Ql Strip See Note (NEGATIVE) None Note: NEGATIVENEGATIVELNEGATIVENEGATIVEL 7970938296REAZKJXMMhspuokvcrl Observer: NITRITE NITRITE 300.3652 (B) pH Ur [...] are final unless otherwise noted. Reported Physicians [facility] Ordered by Maya Barron MD on 01/29/2020 Collected: 01/29/2020 Reported: 01/29/2020 00:22 Reported Physicians See Note None Note: Reported Physicians:Ordering: Yoli NapolesAttending: Charles Silva To: Maya Barron Reviewed by Maya Barron MD on 01/30; All test results are final unless otherwise noted. BHCG,SERUM QUALITATIVE [facility] Ordered by Maya Barron MD on 01/28/2020 Collected: 01/28/2020 Reported: 01/28/2020 22:58 HCG SerPl-sCnc NEGATIVE (NEGATIVE) None Note: @Reenter manual test result: NEGAT LAYA@by Sybil Whatley at 01/28/20 6668.Responsible Observer: BHCG SERUM BHCG SERUM 800.0900 (A) NOTES See Note None Note: @ DID THE CONTROL BAND APPEAR? YES @ DID THE BACKGROUND CLEAR? YES Reviewed by Maya Barron MD on 01/30; All test results are final unless otherwise noted. Reported Physicians [facility] Ordered by Maya Barron MD on 01/28/2020 Collected: 01/28/2020 Reported: 01/28/2020 22:58 Reported Physicians See Note None Note: Reported Physicians:Ordering: Yoli NapolesAttending: Charles Silva To: Maya Barron Reviewed by Maya Barron MD on 01/30; All test results are final unless otherwise noted. CBC W AUTO DIFF [facility] Ordered by Maya Barron MD [...] Auto See Note (0-2) N (Normal) Note: 0.30.3L0.30.2K87100409747.3Respons ible Observer: IG% IG% 100.1375 (B) Hct [...] test results are final unless otherwise noted. Lab Ordered by Maya Barron MD on [...] are final unless otherwise noted. Reported Physicians [facility] Ordered by Maya Barron MD on 01/28/2020 Collected: 01/28/2020 Reported: 01/28/2020 23:00 Reported Physicians See Note None Note: Reported Physicians:Ordering: Cliff Napolesending: Charles Silva To: Maya Barron Reviewed by Maya Barron MD on 01/30; All test results are final unless otherwise noted. UA W/ CULTURE IF ABNORMAL [facility] Ordered by Maya Barron MD on 12/12/2019 Collected: 12/12/2019 Reported: 12/12/2019 11:22 Urobilinogen Ur Ql See Note (0.2-1 EU/dl) None Note: 1 EU/dl1 EU/dlL1 EU/dl1 EU/ajL7275 2755888 EU/dlResponsible Observer: UROBILINOGEN UROBILINOGEN 300.4500 (C) RBC # Ur Strip NEGATIVE (NEGATIVE) None Note: Responsible Observer: BLOOD BLOOD 300.4652 (C) Prot Ur Ql Strip See Note (NEGATIVE) None Note: NEGATIVENEGATIVELNEGATIVENEGATIVEL [id number] Observer: PROTEIN PROTEIN 300.3750 (C) Ketones Ur Ql Strip See Note (NEGATIVE) None Note: 15 mg/dL15 mg/dLL15 mg/dL15 mg/dLL 288288523032 mg/dLResponsible Observer: KETONE KETONE 300.3900 (C) Bilirub Ur Ql Strip.auto See Note (NEGATIVE) None Note: NEGATIVENEGATIVELNEGATIVENEGATIVEL [id number] Observer: BILIRUBIN BILIRUBIN 300.4550 (C) Glucose Ur Strip.auto-mCnc NEGATIVE (NEGATIVE) None Note: Responsible Observer: GLUCOSE GLUC OSE 300.3850 (C) Appearance Ur See Note (CLEAR) A (Abnormal) Note: CLOUDYCLOUDYLCLOUDYCLOUDYLCLOUDYRe sponsible Observer: APPEARANCE APPEARANCE 300.3400 (A) Color Ur See Note None Note: YELLOWYELLOWLYELLOWYELLOWLYELLOWRe sponsible Observer: COLOR COLOR 300.3330 (A) Leukocyte esterase Ur Ql Strip See Note (NEGATIVE) None Note: NEGATIVENEGATIVELNEGATIVENEGATIVEL [id number] Observer: LEUKOCYTES LEUKOCYTES 300.3576 (C) Nitrite Ur Ql Strip See Note (NEGATIVE) None Note: NEGATIVENEGATIVELNEGATIVENEGATIVEL [id number] Observer: NITRITE NITRITE 300.3652 (B) pH Ur [...] are final unless otherwise noted. Reported Physicians [facility] Ordered by Maya Barron MD on 12/12/2019 Collected: 12/12/2019 Reported: 12/12/2019 11:23 Reported Physicians See Note None Note: Reported Physicians:Ordering: Maya AlvarengaAttending: Maya Barron Reviewed by Maya Barron MD on 12/12; All test results are final unless otherwise noted. CBC W AUTO DIFF [facility] Ordered by Maya Barron MD [...] Auto See Note (0-2) N (Normal) Note: [id number] ible Observer: IG% IG% 100.1375 (B) Hct [...] test results are final unless otherwise noted. Lab Ordered by Maya Barron MD on [...] are final unless otherwise noted. Reported Physicians [facility] Ordered by Maya Barron MD on 12/12/2019 Collected: 12/12/2019 Reported: 12/12/2019 11:58 Reported Physicians See Note None Note: Reported Physicians:Ordering: Maya AlvarengaAttending: Maya Barron Reviewed by Maya Barron MD on 12/12; All test results are final unless otherwise noted. Gastrointestinal Panel PCR [facility] Ordered by Maya Barron MD [...] OTHER EXPERTS. (E.G. GUIDELINES/POLICYSTATEMENTS PUBLISHED BY THE [place] [employer] P[employer]OR THE SOCIETY FOR HEALTHCARE EPIDEMIOLOGY OF [place] ANDTHE INFECTIOUS DISEASE SOCIETY OF [place]).CLOC. difficile toxin [id number]. difficile toxin detected Reviewed by Maya Barron MD on 12/12; All test results are final unless otherwise noted. Reported Physicians [facility] Ordered by Maya Barron MD on 12/12/2019 Collected: 12/12/2019 Reported: 12/12/2019 14:17 Reported Physicians See Note None Note: Reported Physicians:Ordering: Maya AlvarengaAttending: Maya Barron Reviewed by Maya Barron MD on 12/12; All test results are final unless otherwise noted. CBC W AUTO DIFF [facility] Ordered by Maya Barron MD [...] Auto See Note (0-2) N (Normal) Note: [id number] ible Observer: IG% IG% 100.1375 (B) Hct [...] test results are final unless otherwise noted. Lab Ordered by Maya Barron MD on [...] unless otherwise noted. Prothrombin Time & INR [facility] Ordered by Maya Barron MD [...] are final unless otherwise noted. Reported Physicians [facility] Ordered by Maya Barron MD on 12/07/2019 Collected: 12/07/2019 Reported: 12/07/2019 17:21 Reported Physicians See Note None Note: Reported Physicians:Ordering: Aj Snowending: Jos Castellanos To: Maya Barron Reviewed by Maya Barron MD on 12/09; All test results are final unless otherwise noted. Urinalysis w/out microscopy Office Lab Ordered by Maya Barron MD on 11/22/[address] [place] [address], [phone] Specimen Source: Urine Collected: 11/22/2019 Reporte d: 11/22/2019 15:28 tel:[phone] bilirubin neg (neg) N (Normal) blood neg [...] results are final unless otherwise noted. TROPONIN [facility] Ordered by Maya Barron MD on 11/19/2019 Collected: 11/19/2019 Reported: 11/19/2019 10:30 Troponin I SerPl-mCnc Less Than 0.015 (0.00-0.09) N (Normal) Note: Less than 0.09 NG/ML Negative 0.10 - 0.77 NG/ML High Risk0.78 NG/ML or Greater PositiveThe WHO defined the cutoff (definition for diagnosis of NV)for this method as 0.78 ng/ml.Responsible Observer: Troponin I Troponin I 600.1101 (G) Reviewed by Maya Barron MD on 11/18; All test results are final unless otherwise noted. Reported Physicians [facility] Ordered by Maya Barron MD on 11/19/2019 Collected: 11/19/2019 Reported: 11/19/2019 10:30 Reported Physicians See Note None Note: Reported Physicians:Ordering: Oscar Del Cidending: Vandana Burrows To: Maya Barron Reviewed by Maya Barron MD on 11/18; All test results are final unless otherwise noted. CBC W AUTO DIFF [facility] Ordered by Maya Barron MD [...] Auto See Note (0-2) N (Normal) Note: [id number] ible Observer: IG% IG% 100.1375 (B) Hct [...] are final unless otherwise noted. BHCG,SERUM QUALITATIVE [facility] Ordered by Maya Barron MD [...] test results are final unless otherwise noted. Lab Ordered by Maya Barron MD on [...] are final unless otherwise noted. Reported Physicians [facility] Ordered by Maya Barron MD on 11/19/2019 Collected: 11/19/2019 Reported: 11/19/2019 10:08 Reported Physicians See Note None Note: Reported Physicians:Ordering: Oscar Del Cidending: Vandana Burrows To: Maya Barron Reviewed by Maya Barron MD on 11/18; All test results are final unless otherwise noted. [facility] Ordered by Maya Barron MD on 11/15/2019 [address] [place], [address] Collected: 11/15/2019 Reported: 11/16/2019 13:40 tel :[phone] ext. 1500 GRAN# 2.2 /mm3 (2.5-7.5) L [...] test results are final unless otherwise noted. [facility] Ordered by Maya Barron MD on 11/15/2019 [address] [place], [address] Collected: 11/15/2019 Reported: 11/16/2019 13:40 tel :[phone] ext. 1500 Albumin 5.1 g/dl (3.4-5.0) H [...] Ordered by Maya Barron MD on 11/15/[address] [place] [address], [address] Collected: 11/15/2019 Reported: 11/16/2019 13:40 tel : ext. 1500 TSH 2.257 uIu/mL (0.5-5.8) None Note: Responsible Observer: AW Reviewed by Maya Barron MD on 11/15; All test results are final unless otherwise noted. BHCG, QUANTITATIVE [facility] Ordered by Maya Barron MD [...] are final unless otherwise noted. Reported Physicians [facility] Ordered by Maya Barron MD on 11/15/2019 Collected: 11/15/2019 Reported: 11/15/2019 15:27 Reported Physicians See Note None Note: Reported Physicians:Ordering: Maya AlvarengaAttending: Maya Barron Reviewed by Maya Barron MD on 11/14; All test results are final unless otherwise noted. Urinalysis w/out microscopy Office Lab Ordered by Maya Barron MD on [address] [place] [address], [phone] Specimen Source: Urine Collected: Reported: 2020 11:41 [...] Ordered by Maya Barron MD on 12/27/2019 [address] [place], [address] Specimen Source: Urine Collected: Reported: 2019 13:46 [...] Procedures and Surgical History Includes: Procedures from 10/25/2019 through 10/24/2020 Procedures Code Diagnosis Performing Provider Service Location Service Date REVISIT- office visit KAYLEIGH 16 weeks gestatio n of Maya Barron MD [facility], [facility] 10/17/2020 REVISIT- office visit KAYLEIGH 15 weeks gestatio n of Maya Barron MD [facility], [facility] 10/11/2020 REVISIT- office visit KAYLEIGH 13 weeks gestatio n of Maya Barron MD [facility], [facility] 09/27/2020 REVISIT- office visit KAYLEIGH 12 weeks gestatio n of Maya Barron MD [facility], [facility] 09/19/2020 EKG- Electrocardiogram/12 lead 93711 Chest pain, unspe cified Cat Gutierrez [facility], [facility] 09/11/2020 REVISIT- office visit KAYLEIGH 10 weeks gestatio n of Cat Gutierrez [facility], [facility] 09/05/2020 REVISIT- office visit KAYLEIGH 8 weeks gestation of Maya Barron MD [facility], [facility] 08/22/2020 Urinalysis w/o Microscopy (Distinct Seperate service-same da y) 92886 Frequency of micturition- Urinary Frequency Maya Barron MD [facility], [facility] 08/15/2020 RAPID STREP 28594 Acute pharyngitis, unspecified Maya Barron MD [facility], [facility] 08/15/2020 Initial Obstetrical Care Office Visit OB Le ss than 8 weeks gestation of Cat Gutierrez [facility], [facility] 021 Urinalysis w/o Microscopy 31598 Frequency of micturiti on- Urinary Frequency Maya Barron MD [facility], [facility] 07/19/2020 REVISIT- office visit KAYLEIGH Threatened Alicja Barron MD [facility], [facility] 05/26/2020 NO CHARGE- Nurse visit- OB establish [employer] Thr eatened , state, incidental Maya Barron MD [facility], [facility] 020 General Health Panel( CMP, CBC, TSH) 53828 Dysmenorrhe a, unspecified Maya Barron MD [facility], [facility] 04/10/2020 Venipuncture (routine) 06544 Dysmenorrhea, unspecified Mariela Barron MD [facility], [facility] 04/10/2020 Brief Emotional Behavior Assessment ( add -59 mod) 72411 Screening for Mental Health/Behavioral Disorder, Unspecified Maya Barron MD [facility], [facility] 04/10/2020 Urine Test 23074 Pelvic and perineal pain, Frequency of micturition- Urinary Frequency Maya Barron MD [facility], [facility] 02/25/2020 Urinalysis w/o Microscopy 32654 Frequency of micturiti on- Urinary Frequency Maya Barron MD [facility], [facility] 02/25/2020 Urine Test 70360 Amenorrhea, unspecified Maya Barron MD [facility], [facility] 12/27/2019 Urinalysis w/o Microscopy 69886 Right upper quadrant pain Trinity Barron MD [facility], [facility] 11/22/2019 General Health Panel( CMP, CBC, TSH) 75813 Other fatigue Alicja Barron MD [facility], [facility] 11/15/2019 Venipuncture (routine) 62994 Other fatigue Maya Barron MD [facility] 11/15/2019 Surgical History Last Updated No [...] 12:00AM Act laya Encounters Includes: Encounters from 10/25/2019 through 10/24/2020 Encounter Provider Location Date Check-In Time Check-Out Time D iagnosis Chronic Care Mgt - Office Visit Maya Barron MD [facility], [facility] 10/24/2020 2:16PM 11:59PM REVISIT- Routine (OB) Visit Maya Barron MD [facility], [facility] 10/24/2020 10:00AM 10:47AM REVISIT- Routine (OB) Visit Maya Barron MD [facility], [facility] 10/17/2020 11:24AM 12:12PM Chronic Care Mgt - Office Visit Maya Barron MD [facility], [facility] 10/17/2020 11:25AM 12:11PM Fracture of Fift h Cervical Vertebral Body, History of Psychiatric Disorders, Reactive Airway Disease REVISIT- Routine (OB) Visit Maya Barron MD [facility], [facility] 10/11/2020 9:44AM 10:15AM OB- ILL VISIT Maya Barron MD [facility], [facility] 10/04/2020 2:12PM 2:31PM Presyncope Syndrome, Tachyca rdia, Palpitations, Difficulty Breathing (Dyspnea), Weeks of Gestation - 14 REVISIT- Routine (OB) Visit Maya Barron MD [facility], [facility] 09/27/2020 1:36PM 1:59PM telephone conversation Michel Villalba MD 09/19/2020 9:43PM 09/19/2020 11:59PM Atypical Chest Pain REVISIT- Routine (OB) Visit Maya Barron MD [facility], [facility] 09/19/2020 9:48AM 10:14AM REVISIT- Routine (OB) Visit Cat Gutierrez [facility] 09/11/2020 3:22PM 4:16PM REVISIT- Routine (OB) Visit Cat Gutierrez [facility], [facility] 09/05/2020 9:37AM 10:00AM TCMNV phone call- NO CHARGE Cat Gutierrez [facility] 09/04/2020 09/05/2020 4:54PM 09/05/2020 11:59PM [Patient Encounter] Cat Gutierrez [facility] 08/31/2020 021 2:21PM 08/22/2020 11:59PM telephone conversation Michel Villalba MD 08/2808/22/2020 11:00AM 08/22/2020 11:59PM REVISIT- Routine (OB) Visit Maya Barron MD [facility] 08/22/2020 1:56PM 2:19PM sick visit Maya Barron MD [facility] 0 08/15/2020 9:36AM 10:12AM Upper Respiratory Infection Acute, Pollakiuria Obstetrics/ first visit Cat Gutierrez [facility] 08/09/2020 9:22AM 10:56AM [facility] 08/02/2020 10:18AM 11:42AM Generalized Anxiety Disorder , Early Stage, Abdominal Pain telephone conversation Michel Villalba MD 07/26/2020 7:59AM 07/26/2020 11:59PM [Patient Encounter] Cat Gutierrez [facility] 07/28/2020 021 2:20PM 07/26/2020 11:59PM followup Maya Barron MD [facility] 0 07/26/2020 10:39AM 11:02AM , Generalized Anxie ty Disorder sick visit Bandar Cleveland PA-C [facility] 3:36PM 4:30PM Pyrexia followup Maya Barron MD [facility] 0 07/19/2020 10:52AM 11:30AM , Generalized Anxie ty Disorder, Pollakiuria followup Maya Barron MD [facility] 1 09/11/2019 10:43AM 11:14AM Atypical Chest Pain, Adjustm ent Disorder followup Maya Barron MD [facility] 1 08/07/2019 10:43AM 10:59AM Missed followup Maya Barron MD [facility] 05/26 1:45PM 2:11PM with Threatened Problem visit - not contagious Maya Barron MD [facility] 05/24/2020 11:13AM 12:00PM with [...] Maya Barron MD [facility] 01/31 2:25PM 2:51PM Back Strain followup Maya Barron MD [facility] 12/26 1:25PM 1:42PM Amenorrhea, Clostridium Difficile sick visit Maya Barron MD [facility] 0 12/07/2019 4:00PM 4:17PM Abdominal Pain sick visit Maya Barron MD [facility] 0 11/22/2019 3:13PM 3:37PM Esophageal Reflux, Abdominal Pain, Generalized Anxiety Disorder sick visit Maya Barron MD [facility] 0 11/15/2019 12:50PM 1:20PM Fatigue, Nausea, Presyncope Syndrome, Generalized Anxiety Disorder sick visit Cat Gutierrez [facility] 0 11/05/2019 11:30AM 11:49AM Atopic Dermatitis Insurance Includes: Active Insurance Policies Plan Name Member ID Group # Subscriber Relationship Effective Da greg 1 - MANAGED MEDICAID [facility] [id number] Georgiana Pickard Self 2020 - Unknown Advance Directives Includes: Current Advance DirectivesNo Advance Directives Recorded Health Concerns Includes: Active Health ConcernsNo Active Health Concerns Recorded Goals Includes: Active GoalsNo Active Goals Recorded Interventions Includes: Interventions for active GoalsNo Interventions Recorded Evaluations & Outcomes Includes: Evaluations & Outcomes for active GoalsNo Outcomes Recorded
[2021-04-29] MEDS ORDERED: ONDANSETRON 4MG/2ML VIAL IV ONE (17:35)
[2021-04-29] MEDS ORDERED: KETOROLAC 30 MG/ML 1ML VIAL IV ONE (17:35)
[2021-04-29] MEDS ORDERED: NS 1,000 ML IV ONE (17:35)
[2021-04-29 17:57] LABS: BASO % 0.4 % (0.0-1.0); EOS % 0.7 % (0.0-3.0); HEMATOCRIT 42.8 % (36.0-47.0); HEMOGLOBIN 13.5 g/dl (12.0-15.5); LYMPH # 1.9 10^3/uL (1.5-5.0); LYMPH % 33.9 % (24.0-44.0); MEAN CORPUSCULAR HEMOGLOBIN 25.8 pg (27.0-33.0); MEAN CORPUSCULAR HGB CONC 31.5 g/dl (32.0-36.5); MEAN CORPUSCULAR VOLUME 81.7 fl (80.0-96.0); MONO # 0.4 10^3/uL (0.0-0.8); NEUTROPHILS # 3.2 10^3/uL (1.5-8.5); NEUTROPHILS % 57.8 % (36.0-66.0); PLATELET COUNT, AUTOMATED 287 10^3/uL (150-450); RED BLOOD COUNT 5.24 10^6/uL (4.00-5.40); WHITE BLOOD COUNT 5.5 10^3/uL (4.0-10.0)
[2021-04-29 18:08] LABS: INR 0.99; PROTHROMBIN TIME 13.5 SECONDS (12.7-14.5)
[2021-04-29 18:09] LABS: PARTIAL THROMBOPLASTIN TIME 31.5 SECONDS (25.9-37.0)
[2021-04-29 18:11] LABS: D-DIMER QUANT 1229.91 ng/ml (<500)
[2021-04-29 18:29] LABS: ALBUMIN 3.8 GM/DL (3.2-5.2); ALT/SGPT 41 U/L (12-78); BILIRUBIN,DIRECT < 0.1 MG/DL (0.0-0.2); BILIRUBIN,TOTAL 0.3 MG/DL (0.2-1.0); BLOOD UREA NITROGEN 7 MG/DL (7-18); CALCIUM LEVEL 8.8 MG/DL (8.5-10.1); CARBON DIOXIDE LEVEL 24 MEQ/L (21-32); CHLORIDE LEVEL 111 MEQ/L (98-107); CK-MB VALUE MASS < 1.0 NG/ML (<3.6); CPK CREATINE PHOSPHOKINASE 46 U/L (26-192); CREATININE FOR GFR 0.75 MG/DL (0.55-1.30); FREE T4 0.93 NG/DL (0.76-1.46); GLOMERULAR FILTRATION RATE > 60.0 (>60); GLUCOSE, FASTING 87 MG/DL (70-100); LIPASE 112 U/L (73-393); MB/CK RELATIVE INDEX 2.17 (< OR =4); NT-PRO BNP 37 PG/ML (<125); POTASSIUM SERUM 3.9 MEQ/L (3.5-5.1); SODIUM LEVEL 142 MEQ/L (136-145); THYROID STIMULATING HORMONE 0.993 uIU/ML (0.358-3.740); TOTAL PROTEIN 7.5 GM/DL (6.4-8.2); TROPONIN I < 0.02 NG/ML (< 0.10)
[2021-04-29] MEDS ORDERED: ISOVUE-370 76% 100ML VIAL As Ordered ONE (18:43)
--- NOTE | 2021-04-29 20:04 | REPVR ---
PROCEDURE INFORMATION: Exam: CTA Chest With Contrast Exam date and time: 04/29/2021 6:45 PM Age: 21 years old Clinical indication: Pain; Dyspnea; Other: Generalized; Additional info: Sob/cp TECHNIQUE: Imaging protocol: Computed tomographic angiography of the chest with contrast. 3D rendering (Not supervised by radiologist): MIP and/or 3D reconstructed images were created by the technologist. Radiation optimization: All CT scans at this facility use at least one of these dose optimization techniques: automated exposure control; mA and/or kV adjustment per patient size (includes targeted exams where dose is matched to clinical indication); or iterative reconstruction. Contrast material: ISOVUE 370; Contrast volume: 75 ml; Contrast route: INTRAVENOUS (IV); COMPARISON: CR PORTABLE CHEST X-RAY 03/22/2021 8:46 PM FINDINGS: Pulmonary arteries: No focal pulmonary artery filling defect to suggest acute pulmonary embolus. Pulmonary vascular/interstitial pattern does not suggest active pulmonary edema. Aorta: No thoracic aortic aneurysm or dissection. Lungs: No suspicious lung mass or air space process. No central endobronchial lesion. Pleural spaces: No pleural effusion or pneumothorax. Heart: No overt cardiac enlargement or abnormal volume of pericardial fluid. Lymph nodes: No enlarged mediastinal lymph nodes. Bones/joints: Bony structures show no acute fracture or destructive process. Soft tissues: No asymmetric abnormality of the extrathoracic soft tissues. IMPRESSION: 1. No evidence of acute pulmonary embolus. 2. No other acute or concerning focal intrathoracic abnormality. Electronically signed by: Oliverio Silver On 04/29/2021 20:04:14 PM
--- NOTE | 2021-04-29 20:05 | ECGEPIP ---
[facility] - ED Test Date: 2021-04-29 Pat Name: GEORGIANA PICKARD Department: Room: - Gender: Female [employer]: CHERRIE : 2000 Requested By: RENZO Bryson Order Number: [id number] Reading MD: Haile Rodríguez Measurements Intervals [place] Rate: 69 P: 34 UT: 134 QRS: 67 QRSD: 66 T: 7 QT: 388 QTc: 415 Interpretive Statements Normal sinus rhythm POOR R WAVE PROGRESSION NONSPECIFIC T WAVE ABNORMALITY(S) SIMILAR TO 03/22/21 Electronically Signed on 04-29-2021 20:04:54 EDT by Haile Rodríguez
[2021-04-29 20:20] VITALS: BP 108/58
== END 2021-04-29 20:20 | disposition home or self-care (01) ==
LOC: M ED 16:20
DX: R07.9 Chest pain, unspecified (principal); Z88.6 Allergy status to analgesic agent
CPT/HCPCS: 36415; 71275; 80047; 80048; 80076; 81001; 82550; 82553; 83690; 83880; 84439; 84443; 84702; 85025; 85379; 85610; 85730; 87086; 93005; 96361; 96374; 96375; 99284; J1885; J2405; Q9967

== ENCOUNTER 2021-05-05 21:19 | Emergency (ER) | payer OTHER ==
[~2021-05-05] VITALS: Ht 167.6 cm; Wt 58.6 kg
[~2021-05-05 21:19] MED LIST changes: +VANC250C3 PO; +VIST25CA PO
[2021-05-05] MEDS ORDERED: VENL37.598 PO (21:42)
[2021-05-05] MEDS ORDERED: FIRV50SO PO (21:42)
[2021-05-05] MEDS ORDERED: PANT40TA29 PO (21:42)
[2021-05-06 08:11] LABS: BASO % 0.4 % (0.0-1.0); EOS # 0.1 10^3/uL (0.0-0.5); EOS % 1.3 % (0.0-3.0); HEMATOCRIT 39.8 % (36.0-47.0); HEMOGLOBIN 12.3 g/dl (12.0-15.5); LYMPH # 2.7 10^3/uL (1.5-5.0); LYMPH % 49.1 % (24.0-44.0); MEAN CORPUSCULAR HEMOGLOBIN 25.6 pg (27.0-33.0); MEAN CORPUSCULAR HGB CONC 30.9 g/dl (32.0-36.5); MEAN CORPUSCULAR VOLUME 82.9 fl (80.0-96.0); MONO # 0.5 10^3/uL (0.0-0.8); MONO % 8.2 % (2.0-8.0); NEUTROPHILS # 2.3 10^3/uL (1.5-8.5); NEUTROPHILS % 40.8 % (36.0-66.0); PLATELET COUNT, AUTOMATED 289 10^3/uL (150-450); WHITE BLOOD COUNT 5.5 10^3/uL (4.0-10.0)
[2021-05-06 08:31] LABS: BLOOD UREA NITROGEN 13 MG/DL (7-18); CALCIUM LEVEL 9.3 MG/DL (8.5-10.1); CARBON DIOXIDE LEVEL 27 MEQ/L (21-32); CHLORIDE LEVEL 109 MEQ/L (98-107); GLOMERULAR FILTRATION RATE > 60.0 (>60); GLUCOSE, FASTING 101 MG/DL (70-100); POTASSIUM SERUM 3.9 MEQ/L (3.5-5.1); SODIUM LEVEL 143 MEQ/L (136-145)
[2021-05-06 08:37] LABS: MONO SCRN NEGATIVE (NEGATIVE)
[2021-05-06 10:48] VITALS: BP 104/56
[2021-05-06] MEDS ORDERED: REGL10TA6 PO (20:54)
[2021-05-06] MEDS ORDERED: DICY10CA13 PO (20:54)
[2021-05-06] MEDS ORDERED: CIPR-249 PO (20:54)
== END 2021-05-06 10:59 | disposition home or self-care (01) ==
LOC: M ED 21:19
DX: R19.7 Diarrhea, unspecified (principal); R10.9 Unspecified abdominal pain; K21.9 Gastro-esophageal reflux disease without esophagitis; Z79.899 Other long term (current) drug therapy; Z88.8 Allergy status to other drugs, medicaments and biological substances

== ENCOUNTER 2021-05-06 18:22 | Emergency (ER) | payer OTHER ==
[~2021-05-06] VITALS: Ht 167.6 cm; Wt 57.2 kg
[~2021-05-06 18:22] MED LIST changes: -CIPR-249 PO; -DICY10CA13 PO; -REGL10TA6 PO
[2021-05-06] MEDS ORDERED: ONDANSETRON 4MG/2ML VIAL IV ONE (19:40)
[2021-05-06] MEDS ORDERED: DICYCLOMINE 10 MG CAP PO ONE (19:40)
[2021-05-06 19:46] LABS: BASO % 0.4 % (0.0-1.0); EOS % 0.7 % (0.0-3.0); HEMATOCRIT 38.3 % (36.0-47.0); HEMOGLOBIN 12.1 g/dl (12.0-15.5); LYMPH # 1.4 10^3/uL (1.5-5.0); LYMPH % 31.9 % (24.0-44.0); MEAN CORPUSCULAR HEMOGLOBIN 25.5 pg (27.0-33.0); MEAN CORPUSCULAR HGB CONC 31.6 g/dl (32.0-36.5); MEAN CORPUSCULAR VOLUME 80.8 fl (80.0-96.0); MONO # 0.4 10^3/uL (0.0-0.8); MONO % 8.6 % (2.0-8.0); NEUTROPHILS # 2.6 10^3/uL (1.5-8.5); NEUTROPHILS % 58.2 % (36.0-66.0); PLATELET COUNT, AUTOMATED 298 10^3/uL (150-450); RED BLOOD COUNT 4.74 10^6/uL (4.00-5.40); WHITE BLOOD COUNT 4.5 10^3/uL (4.0-10.0)
[2021-05-06] MEDS: MORPHINE 4 MG/ML 1ML VIAL/SYRINGE (J2270) IV ONE ×2 (19:53→20:00)
[2021-05-06 20:19] LABS: ALBUMIN 3.8 GM/DL (3.2-5.2); ALT/SGPT 61 U/L (12-78); BILIRUBIN,DIRECT < 0.1 MG/DL (0.0-0.2); BILIRUBIN,TOTAL 0.4 MG/DL (0.2-1.0); LIPASE 125 U/L (73-393); TOTAL PROTEIN 7.3 GM/DL (6.4-8.2)
[2021-05-06] MEDS ORDERED: DICY10CA13 PO (20:54)
[2021-05-06] MEDS ORDERED: REGL10TA6 PO (20:54)
[2021-05-06] MEDS ORDERED: CIPR-249 PO (20:54)
[2021-05-06] MEDS ORDERED: CIPROFLOXACIN 500MG TABLET PO ONE (20:55)
[2021-05-06 21:05] VITALS: BP 113/72
--- NOTE | 2021-05-06 22:00 | REPVR ---
PROCEDURE INFORMATION: Exam: XR Complete Acute Abdomen Series Including Chest Exam date and time: 05/06/2021 8:12 PM Age: 21 years old Clinical indication: Abdominal pain; Additional info: Abd pain, diarrhea, R/O obstruction TECHNIQUE: Imaging protocol: XR complete acute abdomen series, including 2 or more views of the abdomen and a single view chest. COMPARISON: CR PORTABLE CHEST X-RAY 03/22/2021 8:46 PM FINDINGS: Lungs: Normal. No consolidation. Pleural spaces: Normal. No pleural effusions. No pneumothorax. Heart/Mediastinum: Normal. No cardiomegaly. Gastrointestinal tract: Normal. No bowel dilation. Intraperitoneal space: Normal. No free air. Bones/joints: Normal. No acute fracture. Soft tissues: Normal. IMPRESSION: No acute findings. Electronically signed by: Danilo Mijares On 05/06/2021 22:00:11 PM
== END 2021-05-06 21:19 | disposition home or self-care (01) ==
LOC: M ED 18:22
DX: R19.7 Diarrhea, unspecified (principal); R10.9 Unspecified abdominal pain; A04.0 Enteropathogenic Escherichia coli infection; K21.9 Gastro-esophageal reflux disease without esophagitis; Z88.8 Allergy status to other drugs, medicaments and biological substances; Z79.899 Other long term (current) drug therapy
CPT/HCPCS: 74021; 80047; 80076; 83690; 85025; 96374; 99284; J2405

== ENCOUNTER → 2021-05-06 | Outpatient (REF) | payer OTHER ==
[~2021-05-06] MED LIST changes: +CIPR-249 PO; +DICY10CA13 PO; +FIRV50SO PO; +PANT40TA29 PO; +REGL10TA6 PO; +VENL37.598 PO
== END ==
LOC: M LAB REF 17:05
PROVIDERS: ATTEND Physician Assistant
DX: R19.7 Diarrhea, unspecified (principal); Z53.9 Procedure and treatment not carried out, unspecified reason

== ENCOUNTER 2021-08-25 11:51 | Observation (INO) | payer OTHER ==
[~2021-08-25] VITALS: Ht 167.6 cm; Wt 53.8 kg
[~2021-08-25 11:51] MED LIST changes: +CIPR-249 PO; +DICY10CA13 PO; +REGL10TA6 PO; -TOBR0.3S OP; +TOBR0.3S10 OP
[2021-08-25] MEDS ORDERED: SERT50TA29 PO (12:03)
[2021-08-25] MEDS ORDERED: PHEN1TAB73 (12:03)
[2021-08-25] MEDS ORDERED: HYDR-3363 PO (12:03)
[2021-08-25] MEDS ORDERED: CEPH500C (12:03)
[2021-08-25] MEDS ORDERED: GI COCKTAIL 50ML BTL(HYOSCYAMINE/MAALOX/LIDOCAINE VISCOUS)(1:3:1) PO ONE (14:20)
[2021-08-25] MEDS ORDERED: ONDANSETRON 4 MG ORAL DISINTEGRATING TAB PO ONE (14:20)
[2021-08-25 15:00] LABS: BASO % 0.7 % (0.0-1.0); HEMATOCRIT 37.9 % (36.0-47.0); HEMOGLOBIN 12.2 g/dl (12.0-15.5); LYMPH # 1.6 10^3/uL (1.5-5.0); LYMPH % 37.1 % (24.0-44.0); MEAN CORPUSCULAR HEMOGLOBIN 26.5 pg (27.0-33.0); MEAN CORPUSCULAR HGB CONC 32.2 g/dl (32.0-36.5); MEAN CORPUSCULAR VOLUME 82.2 fl (80.0-96.0); MONO # 0.4 10^3/uL (0.0-0.8); MONO % 8.9 % (2.0-8.0); NEUTROPHILS # 2.2 10^3/uL (1.5-8.5); NEUTROPHILS % 52.1 % (36.0-66.0); PLATELET COUNT, AUTOMATED 307 10^3/uL (150-450); RED BLOOD COUNT 4.61 10^6/uL (4.00-5.40); WHITE BLOOD COUNT 4.2 10^3/uL (4.0-10.0)
[2021-08-25 15:22] LABS: ERYTHROCYTE SEDIMENTATION RATE 12 mm/hr (0-20)
[2021-08-25 15:26] LABS: ALT/SGPT 33 U/L (12-78); BILIRUBIN,DIRECT 0.1 MG/DL (0.0-0.2); BILIRUBIN,TOTAL 0.4 MG/DL (0.2-1.0); BLOOD UREA NITROGEN 8 MG/DL (7-18); CALCIUM LEVEL 9.1 MG/DL (8.5-10.1); CARBON DIOXIDE LEVEL 25 MEQ/L (21-32); CHLORIDE LEVEL 110 MEQ/L (98-107); CREATININE FOR GFR 0.66 MG/DL (0.55-1.30); GLOMERULAR FILTRATION RATE > 60.0 (>60); GLUCOSE, FASTING 90 MG/DL (70-100); LIPASE 138 U/L (73-393); POTASSIUM SERUM 3.9 MEQ/L (3.5-5.1); SODIUM LEVEL 141 MEQ/L (136-145); TOTAL PROTEIN 7.6 GM/DL (6.4-8.2)
[2021-08-25] MEDS ORDERED: NS 1,000 ML IV ONE (15:55)
[2021-08-25] MEDS ORDERED: ISOVUE-370 76% 100ML VIAL As Ordered ONE (16:12)
[2021-08-25] MEDS ORDERED: FAMOTIDINE IV BAG 20 MG in IV 1 EA IV ONE (17:00)
[2021-08-25] MEDS ORDERED: MORPHINE 2 MG/ML 1ML VIAL (J2270) IV ONE (17:55)
[2021-08-25] MEDS ORDERED: PIPERACILLIN/TAZOBACTAM SOD 3.375 GM in D5W MINI-BAG PLUS 50 ML IV ONE (18:25)
[2021-08-25] MEDS: ACETAMINOPHEN TAB 650MG DOSE (2X325MG) PO ONE ×2 (18:25→19:10)
[2021-08-25] MEDS ORDERED: D31000TA2 PO (21:22)
[2021-08-25] MEDS ORDERED: HOME MED LIST COMPLETE! XX SCH (21:25)
[2021-08-25] MEDS: NS 1,000 ML IV SCH (21:55)
[2021-08-25] MEDS ORDERED: cefTRIAXone SOD 1 GM in D5W MINI-BAG PLUS 50 ML IV SCH (23:00)
[2021-08-25] MEDS: ACETAMINOPHEN TAB 650MG DOSE (2X325MG) PO PRN (23:10)
[2021-08-26] MEDS: NS 1,000 ML IV SCH (05:26)
[2021-08-26 06:19] LABS: HEMOGLOBIN 10.4 g/dl (12.0-15.5); MEAN CORPUSCULAR HEMOGLOBIN 26.6 pg (27.0-33.0); MEAN CORPUSCULAR HGB CONC 31.5 g/dl (32.0-36.5); MEAN CORPUSCULAR VOLUME 84.4 fl (80.0-96.0); PLATELET COUNT, AUTOMATED 252 10^3/uL (150-450); RED BLOOD COUNT 3.91 10^6/uL (4.00-5.40); WHITE BLOOD COUNT 5.1 10^3/uL (4.0-10.0)
[2021-08-26 06:46] LABS: BLOOD UREA NITROGEN 6 MG/DL (7-18); CALCIUM LEVEL 8.1 MG/DL (8.5-10.1); CARBON DIOXIDE LEVEL 21 MEQ/L (21-32); CHLORIDE LEVEL 114 MEQ/L (98-107); CREATININE FOR GFR 0.57 MG/DL (0.55-1.30); GLOMERULAR FILTRATION RATE > 60.0 (>60); GLUCOSE, FASTING 93 MG/DL (70-100); POTASSIUM SERUM 3.6 MEQ/L (3.5-5.1); SODIUM LEVEL 144 MEQ/L (136-145)
[2021-08-26] MEDS: ACETAMINOPHEN TAB 650MG DOSE (2X325MG) PO PRN (08:32)
[2021-08-26] MEDS ORDERED: HEPARIN SOD (PORCINE) 5000UNITS/ML 1ML VIAL/SYRINGE SC SCH (09:00)
[2021-08-26] MEDS ORDERED: FLAG375C PO (10:31)
[2021-08-26] MEDS ORDERED: CEFD300C41 PO (10:31)
[2021-08-26 12:28] VITALS: BP 110/63
== END 2021-08-26 12:36 | disposition home or self-care (01) ==
LOC: M ED 11:51 → M ED INP 11:52 → ENRESERV 08-26 09:15
PROVIDERS: ADMIT Family Medicine; ATTEND Family Medicine
DX: N39.0 Urinary tract infection, site not specified (principal); B96.89 Other specified bacterial agents as the cause of diseases classified elsewhere; R11.0 Nausea; R10.9 Unspecified abdominal pain; F41.9 Anxiety disorder, unspecified; Z79.899 Other long term (current) drug therapy; Z79.2 Long term (current) use of antibiotics; Z88.8 Allergy status to other drugs, medicaments and biological substances; Z87.440 Personal history of urinary (tract) infections; Z87.891 Personal history of nicotine dependence
CPT/HCPCS: 36415; 74177; 80048; 80076; 81001; 83690; 84702; 85025; 85027; 85652; 86140; 87088; 87798; 96365; 96366; 96368; 99285; J0696; J2543; Q0162; Q9967

== ENCOUNTER 2021-08-26 18:23 | Emergency (ER) | payer OTHER ==
[~2021-08-26] VITALS: Ht 167.6 cm; Wt 53.6 kg
[~2021-08-26 18:23] MED LIST changes: +CEFD300C41 PO; +CEPH500C; +D31000TA2 PO; +FLAG375C PO; +HYDR-3363 PO; +PHEN1TAB73; +SERT50TA29 PO
[2021-08-26 18:26] VITALS: BP 109/57
[2021-08-26 19:49] LABS: BASO % 0.8 % (0.0-1.0); EOS % 1.1 % (0.0-3.0); HEMATOCRIT 36.4 % (36.0-47.0); HEMOGLOBIN 11.7 g/dl (12.0-15.5); LYMPH # 1.3 10^3/uL (1.5-5.0); LYMPH % 35.7 % (24.0-44.0); MEAN CORPUSCULAR HEMOGLOBIN 26.7 pg (27.0-33.0); MEAN CORPUSCULAR HGB CONC 32.1 g/dl (32.0-36.5); MEAN CORPUSCULAR VOLUME 83.1 fl (80.0-96.0); MONO # 0.5 10^3/uL (0.0-0.8); MONO % 13.4 % (2.0-8.0); NEUTROPHILS # 1.8 10^3/uL (1.5-8.5); PLATELET COUNT, AUTOMATED 264 10^3/uL (150-450); RED BLOOD COUNT 4.38 10^6/uL (4.00-5.40); WHITE BLOOD COUNT 3.7 10^3/uL (4.0-10.0)
[2021-08-26 20:16] LABS: BLOOD UREA NITROGEN 4 MG/DL (7-18); CALCIUM LEVEL 8.7 MG/DL (8.5-10.1); CARBON DIOXIDE LEVEL 25 MEQ/L (21-32); CHLORIDE LEVEL 114 MEQ/L (98-107); CREATININE FOR GFR 0.71 MG/DL (0.55-1.30); GLOMERULAR FILTRATION RATE > 60.0 (>60); GLUCOSE, FASTING 91 MG/DL (70-100); SODIUM LEVEL 144 MEQ/L (136-145)
[2021-08-26] MEDS ORDERED: ISOVUE-370 76% 100ML VIAL As Ordered ONE (22:21)
[2021-08-26] MEDS ORDERED: CEFDINIR 300 MG CAP (OMNICEF) PO ONE (23:20)
[2021-08-26] MEDS ORDERED: metroNIDAZOLE (FLAGYL) 500MG TABLET PO ONE (23:20)
[2021-08-27 00:03] LABS: GC DNA AMPLIFICATION NEGATIVE (NEGATIVE)
== END 2021-08-27 00:03 | disposition home or self-care (01) ==
LOC: M ED 18:29
DX: R10.2 Pelvic and perineal pain (principal); F41.9 Anxiety disorder, unspecified; Z88.8 Allergy status to other drugs, medicaments and biological substances; Z79.899 Other long term (current) drug therapy
CPT/HCPCS: 36415; 74177; 76705; 76856; 80048; 85025; 87210; 87808; 87810; 87850; 93976; 99283; Q9967

== ENCOUNTER 2021-10-26 16:02 | Emergency (ER) | payer OTHER ==
[~2021-10-26] VITALS: Ht 167.6 cm; Wt 52.3 kg
[~2021-10-26 16:02] MED LIST changes: -D31000TA2 PO; +VITA100093 PO
[2021-10-26] MEDS ORDERED: IRON65TA2 PO (17:03)
[2021-10-26] MEDS ORDERED: ONDA4TAB6 SL (17:03)
[2021-10-26] MEDS ORDERED: ZOLO100T PO (17:03)
[2021-10-26] MEDS ORDERED: PANT40TA29 PO (17:03)
[2021-10-26 17:59] LABS: BASO % 0.5 % (0.0-1.0); EOS % 0.8 % (0.0-3.0); HEMATOCRIT 36.6 % (36.0-47.0); HEMOGLOBIN 11.6 g/dl (12.0-15.5); LYMPH # 1.5 10^3/uL (1.5-5.0); LYMPH % 39.2 % (24.0-44.0); MEAN CORPUSCULAR HEMOGLOBIN 26.2 pg (27.0-33.0); MEAN CORPUSCULAR HGB CONC 31.7 g/dl (32.0-36.5); MEAN CORPUSCULAR VOLUME 82.6 fl (80.0-96.0); MONO # 0.4 10^3/uL (0.0-0.8); MONO % 11.3 % (2.0-8.0); NEUTROPHILS # 1.9 10^3/uL (1.5-8.5); NEUTROPHILS % 47.9 % (36.0-66.0); PLATELET COUNT, AUTOMATED 299 10^3/uL (150-450); RED BLOOD COUNT 4.43 10^6/uL (4.00-5.40); WHITE BLOOD COUNT 3.9 10^3/uL (4.0-10.0)
[2021-10-26 18:31] LABS: ALBUMIN 3.9 GM/DL (3.2-5.2); BILIRUBIN,DIRECT 0.1 MG/DL (0.0-0.2); BILIRUBIN,TOTAL 0.4 MG/DL (0.2-1.0); TOTAL PROTEIN 7.1 GM/DL (6.4-8.2)
[2021-10-26 20:05] VITALS: BP 123/60
== END 2021-10-26 20:10 | disposition home or self-care (01) ==
LOC: M ED 16:02
DX: R10.13 Epigastric pain (principal); J45.909 Unspecified asthma, uncomplicated; F41.9 Anxiety disorder, unspecified; G43.909 Migraine, unspecified, not intractable, without status migrainosus; I49.3 Ventricular premature depolarization; Z88.8 Allergy status to other drugs, medicaments and biological substances; Z79.899 Other long term (current) drug therapy

== ENCOUNTER 2022-03-08 20:22 | Emergency (ER) | payer OTHER ==
[~2022-03-08] VITALS: Ht 167.6 cm; Wt 50.2 kg
[~2022-03-08 20:22] MED LIST changes: +IRON65TA2 PO; +ONDA4TAB6 SL; +ZOLO100T PO
[2022-03-08 20:23] VITALS: BP 125/58
== END 2022-03-09 00:15 | disposition left against medical advice (07) ==
LOC: M ED 20:22
DX: Z53.29 Procedure and treatment not carried out because of patient's decision for other reasons (principal)

== ENCOUNTER 2022-03-25 18:12 | Emergency (ER) | payer OTHER ==
[~2022-03-25] VITALS: Ht 167.6 cm; Wt 50.0 kg
[2022-03-25 21:25] LABS: HEMATOCRIT 36.8 % (36.0-47.0); HEMOGLOBIN 11.4 g/dl (12.0-15.5); MEAN CORPUSCULAR HEMOGLOBIN 24.8 pg (27.0-33.0); MEAN CORPUSCULAR VOLUME 80.2 fl (80.0-96.0); PLATELET COUNT, AUTOMATED 269 10^3/uL (150-450); RED BLOOD COUNT 4.59 10^6/uL (4.00-5.40); WHITE BLOOD COUNT 6.4 10^3/uL (4.0-10.0)
[2022-03-25 22:05] LABS: BLOOD UREA NITROGEN 9 MG/DL (7-18); CALCIUM LEVEL 9.3 MG/DL (8.5-10.1); CARBON DIOXIDE LEVEL 26 MEQ/L (21-32); CHLORIDE LEVEL 107 MEQ/L (98-107); CREATININE FOR GFR 0.75 MG/DL (0.55-1.30); GLOMERULAR FILTRATION RATE > 60.0 (>60); GLUCOSE, FASTING 75 MG/DL (70-100); POTASSIUM SERUM 3.6 MEQ/L (3.5-5.1); SODIUM LEVEL 139 MEQ/L (136-145)
[2022-03-25 22:36] VITALS: BP 110/58
[2022-03-25] MEDS ORDERED: PYRI1TAB5 PO (22:51)
== END 2022-03-25 23:02 | disposition home or self-care (01) ==
LOC: M ED 18:12
DX: N30.91 Cystitis, unspecified with hematuria (principal); G43.909 Migraine, unspecified, not intractable, without status migrainosus; K21.9 Gastro-esophageal reflux disease without esophagitis; Z86.16 Personal history of COVID-19; Z86.19 Personal history of other infectious and parasitic diseases; Z88.8 Allergy status to other drugs, medicaments and biological substances; Z79.899 Other long term (current) drug therapy

== ENCOUNTER 2022-03-27 21:55 | Emergency (ER) | payer OTHER ==
[~2022-03-27] VITALS: Ht 167.6 cm; Wt 51.9 kg
[~2022-03-27 21:55] MED LIST changes: +PYRI1TAB5 PO
[2022-03-27] MEDS ORDERED: CEPH500C PO (22:16)
[2022-03-27 22:49] LABS: BASO % 0.4 % (0.0-1.0); EOS # 0.1 10^3/uL (0.0-0.5); EOS % 1.9 % (0.0-3.0); HEMOGLOBIN 11.3 g/dl (12.0-15.5); LYMPH % 41.7 % (24.0-44.0); MEAN CORPUSCULAR HEMOGLOBIN 25.1 pg (27.0-33.0); MEAN CORPUSCULAR HGB CONC 31.4 g/dl (32.0-36.5); MONO # 0.7 10^3/uL (0.0-0.8); MONO % 14.5 % (2.0-8.0); NEUTROPHILS % 41.3 % (36.0-66.0); PLATELET COUNT, AUTOMATED 254 10^3/uL (150-450); WHITE BLOOD COUNT 4.8 10^3/uL (4.0-10.0)
[2022-03-27 23:27] LABS: ALBUMIN 3.8 GM/DL (3.2-5.2); ALT/SGPT 21 U/L (12-78); BILIRUBIN,DIRECT < 0.1 MG/DL (0.0-0.2); BILIRUBIN,TOTAL 0.3 MG/DL (0.2-1.0); BLOOD UREA NITROGEN 15 MG/DL (7-18); CALCIUM LEVEL 9.4 MG/DL (8.5-10.1); CARBON DIOXIDE LEVEL 25 MEQ/L (21-32); CHLORIDE LEVEL 107 MEQ/L (98-107); CREATININE FOR GFR 0.76 MG/DL (0.55-1.30); GLOMERULAR FILTRATION RATE > 60.0 (>60); GLUCOSE, FASTING 74 MG/DL (70-100); LIPASE 158 U/L (73-393); POTASSIUM SERUM 3.9 MEQ/L (3.5-5.1); SODIUM LEVEL 137 MEQ/L (136-145); TOTAL PROTEIN 7.5 GM/DL (6.4-8.2)
[2022-03-28] MEDS ORDERED: ONDANSETRON 4MG ORAL DISINTEGRATING TAB PO ONE (06:25)
[2022-03-28] MEDS ORDERED: HOME MED LIST COMPLETE! XX SCH (06:35)
[2022-03-28 07:15] LABS: RSV AMPLIFICATION NEGATIVE (NEGATIVE)
[2022-03-28] MEDS ORDERED: REGL10TA6 PO (07:47)
[2022-03-28 08:12] VITALS: BP 114/56
== END 2022-03-28 08:11 | disposition home or self-care (01) ==
LOC: M ED 21:55
DX: R11.0 Nausea (principal); Z88.6 Allergy status to analgesic agent

== ENCOUNTER 2022-05-07 19:29 | Emergency (ER) | payer OTHER ==
[~2022-05-07] VITALS: Ht 167.6 cm; Wt 52.1 kg
[~2022-05-07 19:29] MED LIST changes: +CEPH500C PO
[2022-05-08 00:23] LABS: BASO % 0.4 % (0.0-1.0); EOS # 0.1 10^3/uL (0.0-0.5); EOS % 1.4 % (0.0-3.0); HEMATOCRIT 34.7 % (36.0-47.0); HEMOGLOBIN 10.7 g/dl (12.0-15.5); LYMPH # 2.1 10^3/uL (1.5-5.0); LYMPH % 41.3 % (24.0-44.0); MEAN CORPUSCULAR HEMOGLOBIN 25.1 pg (27.0-33.0); MEAN CORPUSCULAR HGB CONC 30.8 g/dl (32.0-36.5); MEAN CORPUSCULAR VOLUME 81.5 fl (80.0-96.0); MONO # 0.6 10^3/uL (0.0-0.8); MONO % 10.8 % (2.0-8.0); NEUTROPHILS # 2.4 10^3/uL (1.5-8.5); NEUTROPHILS % 45.7 % (36.0-66.0); PLATELET COUNT, AUTOMATED 258 10^3/uL (150-450); RED BLOOD COUNT 4.26 10^6/uL (4.00-5.40); WHITE BLOOD COUNT 5.2 10^3/uL (4.0-10.0)
[2022-05-08 00:47] LABS: RSV AMPLIFICATION NEGATIVE (NEGATIVE)
[2022-05-08 00:54] LABS: BLOOD UREA NITROGEN 11 MG/DL (7-18); CARBON DIOXIDE LEVEL 24 MEQ/L (21-32); CHLORIDE LEVEL 108 MEQ/L (98-107); CREATININE FOR GFR 0.64 MG/DL (0.55-1.30); GLOMERULAR FILTRATION RATE > 60.0 (>60); GLUCOSE, FASTING 89 MG/DL (70-100); POTASSIUM SERUM 3.6 MEQ/L (3.5-5.1); SODIUM LEVEL 139 MEQ/L (136-145)
[2022-05-08 01:32] VITALS: BP 109/62
== END 2022-05-08 01:34 | disposition home or self-care (01) ==
LOC: M ED 19:29
DX: R42 Dizziness and giddiness (principal); D50.9 Iron deficiency anemia, unspecified; J45.909 Unspecified asthma, uncomplicated; G43.909 Migraine, unspecified, not intractable, without status migrainosus; K21.9 Gastro-esophageal reflux disease without esophagitis; Z86.19 Personal history of other infectious and parasitic diseases; F41.9 Anxiety disorder, unspecified; Z79.899 Other long term (current) drug therapy; Z88.6 Allergy status to analgesic agent

== ENCOUNTER 2022-05-23 20:19 | Emergency (ER) | payer OTHER ==
[~2022-05-23] VITALS: Ht 167.6 cm; Wt 53.3 kg
[2022-05-23] MEDS ORDERED: PREN1CHW6 PO (20:26)
[2022-05-23 21:36] LABS: BASO % 0.4 % (0.0-1.0); EOS # 0.1 10^3/uL (0.0-0.5); EOS % 0.7 % (0.0-3.0); HEMATOCRIT 34.8 % (36.0-47.0); HEMOGLOBIN 10.8 g/dl (12.0-15.5); LYMPH % 29.4 % (24.0-44.0); MEAN CORPUSCULAR HEMOGLOBIN 25.2 pg (27.0-33.0); MEAN CORPUSCULAR VOLUME 81.3 fl (80.0-96.0); MONO # 0.5 10^3/uL (0.0-0.8); MONO % 7.4 % (2.0-8.0); NEUTROPHILS # 4.2 10^3/uL (1.5-8.5); NEUTROPHILS % 61.8 % (36.0-66.0); PLATELET COUNT, AUTOMATED 288 10^3/uL (150-450); RED BLOOD COUNT 4.28 10^6/uL (4.00-5.40); WHITE BLOOD COUNT 6.7 10^3/uL (4.0-10.0)
[2022-05-23 22:12] LABS: CK-MB VALUE MASS < 1.0 NG/ML (<3.6); CPK CREATINE PHOSPHOKINASE 72 U/L (26-192); MB/CK RELATIVE INDEX 1.39 (< OR =4)
[2022-05-23 22:17] LABS: BLOOD UREA NITROGEN 17 MG/DL (7-18); CALCIUM LEVEL 8.9 MG/DL (8.5-10.1); CARBON DIOXIDE LEVEL 25 MEQ/L (21-32); CHLORIDE LEVEL 106 MEQ/L (98-107); CREATININE FOR GFR 0.78 MG/DL (0.55-1.30); GLOMERULAR FILTRATION RATE > 60.0 (>60); GLUCOSE, FASTING 80 MG/DL (70-100); HCG, SERUM QUANTITATIVE 57 MIU/ML; POTASSIUM SERUM 3.3 MEQ/L (3.5-5.1); SODIUM LEVEL 136 MEQ/L (136-145)
[2022-05-23] MEDS ORDERED: NS 1,000 ML IV ONE (23:00)
[2022-05-24 00:37] LABS: CK-MB VALUE MASS < 1.0 NG/ML (<3.6); CPK CREATINE PHOSPHOKINASE 71 U/L (26-192); MB/CK RELATIVE INDEX 1.41 (< OR =4)
[2022-05-24] MEDS ORDERED: POTASSIUM CHLORIDE 10MEQ SR TABLET PO ONE (01:00)
[2022-05-24 01:05] VITALS: BP 105/55
== END 2022-05-24 01:22 | disposition home or self-care (01) ==
LOC: M ED 20:19
DX: O20.0 Threatened abortion (principal); O99.419 Diseases of the circulatory system complicating pregnancy, unspecified trimester; R00.2 Palpitations; R07.9 Chest pain, unspecified; O99.891 Other specified diseases and conditions complicating pregnancy; R10.9 Unspecified abdominal pain; O34.81 Maternal care for other abnormalities of pelvic organs, first trimester; Z90.89 Acquired absence of other organs; Z3A.00 Weeks of gestation of pregnancy not specified; Z79.899 Other long term (current) drug therapy

== ENCOUNTER → 2022-05-26 | Outpatient (CLI) | payer OTHER ==
[~2022-05-26] MED LIST changes: +PREN1CHW6 PO
== END ==
LOC: M LAB 10:48
PROVIDERS: ATTEND Physician Assistant
DX: R10.2 Pelvic and perineal pain (principal)

== ENCOUNTER 2022-06-02 17:25 | Emergency (ER) | payer OTHER ==
[~2022-06-02] VITALS: Ht 167.6 cm; Wt 53.9 kg
[2022-06-02 19:29] LABS: HEMATOCRIT 33.4 % (36.0-47.0); HEMOGLOBIN 10.5 g/dl (12.0-15.5); MEAN CORPUSCULAR HGB CONC 31.4 g/dl (32.0-36.5); MEAN CORPUSCULAR VOLUME 82.7 fl (80.0-96.0); PLATELET COUNT, AUTOMATED 277 10^3/uL (150-450); RED BLOOD COUNT 4.04 10^6/uL (4.00-5.40); WHITE BLOOD COUNT 4.9 10^3/uL (4.0-10.0)
[2022-06-02 23:40] LABS: GC DNA AMPLIFICATION NEGATIVE (NEGATIVE)
[2022-06-03 00:05] VITALS: BP 116/78
== END 2022-06-03 00:06 | disposition home or self-care (01) ==
LOC: M ED 17:25
DX: O20.0 Threatened abortion (principal); O34.81 Maternal care for other abnormalities of pelvic organs, first trimester; E28.2 Polycystic ovarian syndrome; O99.611 Diseases of the digestive system complicating pregnancy, first trimester; K21.9 Gastro-esophageal reflux disease without esophagitis; Z3A.01 Less than 8 weeks gestation of pregnancy; Z79.899 Other long term (current) drug therapy; Z88.8 Allergy status to other drugs, medicaments and biological substances; Z87.42 Personal history of other diseases of the female genital tract; Z87.440 Personal history of urinary (tract) infections; Z86.19 Personal history of other infectious and parasitic diseases; Z98.890 Other specified postprocedural states; Z90.89 Acquired absence of other organs; Z84.2 Family history of other diseases of the genitourinary system

== ENCOUNTER 2022-07-05 17:50 | Emergency (ER) | payer OTHER ==
[~2022-07-05] VITALS: Ht 167.6 cm; Wt 53.2 kg
[2022-07-05] MEDS ORDERED: PYRI1TAB5 PO ×2 (18:54→19:22)
[2022-07-05] MEDS ORDERED: BACT800T5 PO (19:11)
[2022-07-05] MEDS ORDERED: CEPH500C PO (19:18)
[2022-07-05 19:20] VITALS: BP 107/55
[2022-07-05] MEDS ORDERED: CEPHALEXIN 500 MG CAP PO ONE (19:20)
[2022-07-05] MEDS ORDERED: PHENAZOPYRIDINE 100 MG TAB PO ONE (19:25)
== END 2022-07-05 19:39 | disposition home or self-care (01) ==
LOC: M ED 17:50
DX: O23.11 Infections of bladder in pregnancy, first trimester (principal); N30.01 Acute cystitis with hematuria; Z86.16 Personal history of COVID-19; Z87.442 Personal history of urinary calculi; K21.9 Gastro-esophageal reflux disease without esophagitis; G43.909 Migraine, unspecified, not intractable, without status migrainosus; Z88.8 Allergy status to other drugs, medicaments and biological substances; Z79.899 Other long term (current) drug therapy

== ENCOUNTER 2022-07-08 07:17 | Emergency (ER) | payer OTHER ==
[~2022-07-08] VITALS: Ht 167.6 cm; Wt 49.5 kg
[~2022-07-08 07:17] MED LIST changes: +BACT800T5 PO
[2022-07-08] MEDS: ACETAMINOPHEN 325 MG TAB PO ONE ×2 (07:30→07:58)
[2022-07-08] MEDS ORDERED: METOCLOPRAMIDE 10MG TAB PO ONE (07:30)
[2022-07-08] MEDS ORDERED: CEPH500C PO (08:06)
[2022-07-08] MEDS ORDERED: NS 1,000 ML IV ONE (09:35)
[2022-07-08] MEDS ORDERED: PROMETHAZINE 25MG/ML 1ML VIAL IV ONE (09:35)
[2022-07-08] MEDS ORDERED: ONDANSETRON 4MG 2ML VIAL IV ONE (12:00)
[2022-07-08 12:27] VITALS: BP 111/59
[2022-07-08 12:37] LABS: ALBUMIN 3.4 G/DL (3.2-5.2); ALKALINE PHOSPHATASE 72 U/L (46-116); ALT/SGPT 16 U/L (7.0-40); AST/SGOT 21 U/L (<34); BILIRUBIN,TOTAL 0.5 MG/DL (0.3-1.2); BLOOD UREA NITROGEN 9 MG/DL (9-23); CARBON DIOXIDE LEVEL 19 MMOL/L (20-31); CHLORIDE LEVEL 106 MMOL/L (98-107); CREATININE FOR GFR 0.48 MG/DL (0.55-1.30); GLOMERULAR FILTRATION RATE > 60.0 (>60); GLUCOSE, FASTING 95 MG/DL (60-100); POTASSIUM SERUM 4.1 MMOL/L (3.5-5.1); SODIUM LEVEL 136 MMOL/L (136-145); TOTAL PROTEIN 6.9 G/DL (5.7-8.2)
[2022-07-08] MEDS ORDERED: REGL10TA6 PO (12:54)
== END 2022-07-08 13:44 | disposition home or self-care (01) ==
LOC: M ED 07:17
DX: O23.31 Infections of other parts of urinary tract in pregnancy, first trimester (principal); O21.9 Vomiting of pregnancy, unspecified; J45.909 Unspecified asthma, uncomplicated; K21.9 Gastro-esophageal reflux disease without esophagitis; G43.909 Migraine, unspecified, not intractable, without status migrainosus; Z86.16 Personal history of COVID-19; Z88.6 Allergy status to analgesic agent; Z3A.10 10 weeks gestation of pregnancy; Z79.810 Long term (current) use of selective estrogen receptor modulators (SERMs); Z79.899 Other long term (current) drug therapy
CPT/HCPCS: 80053; 81000; 81015; 87086; 96361; 96374; 96375; 99284; J2405; J2550

== ENCOUNTER 2022-08-18 17:59 | Emergency (ER) | payer OTHER ==
[~2022-08-18] VITALS: Ht 167.6 cm; Wt 52.1 kg
[2022-08-19] MEDS ORDERED: NS 1,000 ML IV ONE (02:50)
[2022-08-19 03:17] LABS: BASO % 0.3 % (0.0-1.0); EOS # 0.1 10^3/uL (0.0-0.5); EOS % 1.2 % (0.0-3.0); HEMATOCRIT 35.2 % (36.0-47.0); HEMOGLOBIN 11.7 g/dl (12.0-15.5); LYMPH % 33.6 % (24.0-44.0); MEAN CORPUSCULAR HEMOGLOBIN 28.1 pg (27.0-33.0); MEAN CORPUSCULAR HGB CONC 33.2 g/dl (32.0-36.5); MEAN CORPUSCULAR VOLUME 84.6 fl (80.0-96.0); MONO # 0.4 10^3/uL (0.0-0.8); MONO % 7.2 % (2.0-8.0); NEUTROPHILS # 3.4 10^3/uL (1.5-8.5); NEUTROPHILS % 57.4 % (36.0-66.0); PLATELET COUNT, AUTOMATED 251 10^3/uL (150-450); RED BLOOD COUNT 4.16 10^6/uL (4.00-5.40)
[2022-08-19 03:42] LABS: ALBUMIN 3.2 G/DL (3.2-5.2); ALKALINE PHOSPHATASE 79 U/L (46-116); ALT/SGPT < 9 U/L (7.0-40); AST/SGOT 20 U/L (<34); BILIRUBIN,TOTAL 0.6 MG/DL (0.3-1.2); BLOOD UREA NITROGEN 8 MG/DL (9-23); CALCIUM LEVEL 8.4 MG/DL (8.5-10.1); CARBON DIOXIDE LEVEL 21 MMOL/L (20-31); CHLORIDE LEVEL 104 MMOL/L (98-107); CK-MB VALUE MASS < 1.0 NG/ML (<3.6); CREATININE FOR GFR 0.55 MG/DL (0.55-1.30); GLOMERULAR FILTRATION RATE > 60.0 (>60); GLUCOSE, FASTING 73 MG/DL (60-100); MAGNESIUM LEVEL 1.8 MG/DL (1.8-2.4); SODIUM LEVEL 135 MMOL/L (136-145); TOTAL PROTEIN 6.8 G/DL (5.7-8.2)
[2022-08-19 03:47] LABS: CPK CREATINE PHOSPHOKINASE 59 U/L (34-145); MB/CK RELATIVE INDEX 1.69 (< OR =4)
[2022-08-19 05:13] VITALS: BP 121/80
== END 2022-08-19 05:14 | disposition home or self-care (01) ==
LOC: M ED 17:59
DX: R00.2 Palpitations (principal); Z90.89 Acquired absence of other organs; Z88.8 Allergy status to other drugs, medicaments and biological substances; Z79.899 Other long term (current) drug therapy